=== PATIENT | male | born 1955 | race Caucasian/White ===

== ENCOUNTER 2017-10-07 13:30 | Outpatient (RCR) | payer OTHER, SELFPAY ==
[2017-09-16 13:50] VITALS: BP 136/98; PULSE 87; RESP 16; TEMP 36.9; BMI 43.5
--- NOTE | 2017-09-16 19:00 | HP.PCM_ITS ---
(1) Chronic L sided weakness Status: Chronic Current Visit: Yes (2) History of DVT (deep vein thrombosis) Status: Chronic Current Visit: Yes Code(s): Z86.718 - Personal history of other venous thrombosis and embolism (3) Lymphedema Status: Chronic Current Visit: Yes Code(s): I89.0 - Lymphedema, not elsewhere classified (4) Chronic pain disorder Status: Chronic Current Visit: Yes Code(s): G89.4 - Chronic pain syndrome (5) Venous ulcer of left lower extremity with varicose veins Status: Chronic Current Visit: Yes Code(s): I83.029 - Varicose veins of left lower extremity with ulcer of unspecified site History of Present Illness Date of Service: 09/16/17 Chief Complaint: Nonhealing venous ulcer of left lower extremity History of Wound: Mauricio is here today for complaint of nonhealing wound of his left lower extremity which started about a month ago after his skin blistered and the blisters broke. He has been washing his legs and applying silver ointment and gauze daily. He also developed skin tears from tape in the last week on his left york and left superior calf. He saw his primary care physician and they did wound cultures and dressed his wounds with silvercell and referred him to the wound center for continued treatment. He has chronic edema of his lower extremities the left greater than the right status post stroke. He has compression stockings and lymphedema pumps. He does not wear the compression stockings all of the time due to causing pain in his left foot. He has not been as compliant with his lymphedema pumps due to pain/pressure that he gets in his left side during treatments but he has done it several times this week since seeing his PCP but has done the treatments lying in bed which has seemed to help a little. His last vascular studies were in 2014 when he was seen here for treatment of similar ulcers. His current ulcer is in the same spot as one of his previous ulcers. Past Medical History Past Medical History: Chronic Problems History of pulmonary embolism (Chronic) Chronic L sided weakness (Chronic) History of DVT (deep vein thrombosis) (Chronic) BPH (benign prostatic hypertrophy) (Chronic) Hyperlipidemia (Chronic) Seizure disorder (Chronic) History of CVA (cerebrovascular accident) (Chronic) Hypertension (Chronic) Lymphedema (Chronic) Venous ulcers of both lower extremities (Chronic) Chronic pain disorder (Chronic) Venous ulcer of both lower extremities with varicose veins (Chronic) Venous ulcer of left lower extremity with varicose veins (Chronic) Central nervous system deficit (Chronic) Surgical History: no surgical history, - - IVC Filter Allergies/Adverse Reactions: Allergies ciprofloxacin [From Cipro] Adverse Reaction (Verified 03/20/17 13:05) PAIN IN FEET ciprofloxacin HCl [From Cipro] Adverse Reaction (Verified 03/20/17 13:05) PAIN IN FEET citalopram Adverse Reaction (Verified 03/20/17 13:05) SUICIDAL THOUGHTS SUICIDAL THOUGHTS gabapentin [From Neurontin] Adverse Reaction (Verified 03/20/17 13:05) EFFECTED VISION AND HEARING FOGGY, IT EFFECTED MY VISION AND MY HEARING hydrochlorothiazide Adverse Reaction (Verified 03/20/17 13:05) DIZZINESS dizziness STATINS Adverse Reaction (Uncoded 03/20/17 13:05) SEVERE MUSCLE PAINS SEVERE MUSCLE PAINS Home Medications: Ambulatory Orders Medication Instructions Recorded Phenytoin Na [Dilantin] 100 mg PO DAILY 08/29/14 Lisinopril [Zestril] 10 mg PO DAILY 08/27/15 [place]-3 Fatty Acids [Fish Oil] 1,000 mg PO BID 08/27/15 Ubidecarenone [Co Q-10] 100 mg PO DAILY 08/27/15 Warfarin [Coumadin ([facility])] 4 mg PO MOWEFR 08/27/15 Warfarin [Coumadin ([facility])] 3 mg PO TUTHSA 03/20/17 Ergocalciferol [Vitamin D] 5,000 unit PO DAILY 09/16/17 Turmeric Root Extract [Turmeric] 100 mg PO DAILY 09/16/17 - Family History Maternal Heart Disease, Hypertension Paternal Cancer - Father with colon CA. Lives: Alone Smoking Status: Never smoker Tobacco Use: Non-smoker Alcohol: None Drugs: None Review of Systems Constitutional: Denies: Chills, Fever, Weight Change Eyes: Denies: Pain, Vision Change HEENT: Denies: Difficulty Hearing, Difficulty Swallowing, Sinus Congestion Cardiovascular: Denies: Chest Pain, Palpitations Respiratory: Denies: Cough, Shortness of Breath Gastrointestinal: Denies: Diarrhea, Nausea, Vomiting Genitourinary: Denies: Dysuria, Hematuria Musculoskeletal: Reports: Foot Pain, Leg Pain Skin: Reports: Wounds Neurological: Reports: Numbness, Tingling Endocrine: Denies: Heat/ Cold Intolerance, Polydipsia, Polyuria Hematologic/ Lymphatic: Reports: Easy Bruising, Easy Bleeding, Hx of blood clot - Physical Exam Vital Signs Temp Pulse Resp BP 98.4 F 87 16 136/98 H 09/16/17 13:50 09/16/17 13:50 09/16/17 13:50 09/16/17 13:50 General: Alert, Oriented x3, Cooperative, No apparent distress HEENT: Atraumatic, Normocephalic Oral: Moist Mucosa Lungs: Clear to auscultation Cardiovascular: Regular rate, Regular Rhythm Abdomen: Soft, Non Tender, Obese Extremities: Edema Skin: Ulcer/ Wound Wound Measurements and Assessment WC - Nurse 1 - General Ulcer Measurement Start: 09/16/17 13:45 Freq: Status: Active Protocol: Activity Type Activity Date Activity User E-Sign Co-Sign Detail Recorded Client Recorded Date Recorded By Document 09/16/17 13:50 BM [id number] 09/16/17 14:28 BM 09/16/17 13:50 Wound Center Nurse 1 [Ulcer Assessment Protocol: .WD.LOC] #7- LT INFERIOR CALF -Combined with other wound No -Current Size (cm) - Length 2.2 -Current Size (cm) - Width 2.1 -Current Size (cm) - Depth 0.2 -Total Square Cm 4.62 -Date of Last Picture (Recall this 09/16/17 field) -Photo Taken Yes -Epithelialization None Present -Tunneling No -Undermining/Tunneling No -Exudate Amt Medium (34-66%) -Exudate Type Serosanguineous -Wound Margin Distinct, Outline Attached -Granulation Amt Small (1-33%) -Granulation Quality Red -Slough/Fibrin Yes -Necrosis Amt Large (67-100%) -Necrotic Tissue Type Eschar -Structure Exposed N/A -Texture (Marie-wound Skin Appearance) Scarring -Moisture (Marie-wound Skin Appearance Dry/Scaly ) -Color (Marie-wound Skin Appearance) Hemosiderin Staining -Temperature (Marie-wound Skin No Abnormality Appearance) (Pt Warm) -Tenderness on Palpation (Marie-wound No Skin Appearance) -Ulcer Cleansing Rinsed/ Irrigated with Saline -Foul Odor after Cleansing No -Anesthetic Used 4% Lidocaine Solution #6- LT SUPERIOR CALF CLUSTER -Combined with other wound No -Current Size (cm) - Length 2.9 -Current Size (cm) - Width 4.2 -Current Size (cm) - Depth 0.1 -Total Square Cm 12.18 -Date of Last Picture (Recall this 09/16/17 field) -Photo Taken Yes -Epithelialization None Present -Tunneling No -Undermining/Tunneling No -Exudate Amt None Present (0 %) -Wound Margin Distinct, Outline Attached -Granulation Amt Small (1-33%) -Granulation Quality Red -Necrosis Amt Large (67-100%) -Necrotic Tissue Type Eschar -Structure Exposed N/A -Texture (Marie-wound Skin Appearance) Scarring -Moisture (Marie-wound Skin Appearance Dry/Scaly ) -Color (Marie-wound Skin Appearance) Hemosiderin Staining -Temperature (Marie-wound Skin No Abnormality Appearance) (Pt Warm) -Tenderness on Palpation (Marie-wound No Skin Appearance) -Ulcer Cleansing Rinsed/ Irrigated with Saline -Foul Odor after Cleansing No -Anesthetic Used 4% Lidocaine Solution #5- LT MEDIAL [place] -Combined with other wound No -Current Size (cm) - Length 6.5 -Current Size (cm) - Width 2.5 -Current Size (cm) - Depth 0.1 -Total Square Cm 16.25 -Date of Last Picture (Recall this 09/16/17 field) -Photo Taken Yes -Epithelialization None Present -Tunneling No -Undermining/Tunneling No -Exudate Amt Medium (34-66%) -Exudate Type Serosanguineous -Wound Margin Distinct, Outline Attached -Granulation Amt Large (67-100%) -Granulation Quality Red -Slough/Fibrin Yes -Necrosis Amt Small (1-33%) -Necrotic Tissue Type Adherent Slough -Structure Exposed None/Limited to Skin Breakdown -Texture (Marie-wound Skin Appearance) Scarring -Moisture (Marie-wound Skin Appearance Dry/Scaly ) -Color (Marie-wound Skin Appearance) Hemosiderin Staining -Temperature (Marie-wound Skin No Abnormality Appearance) (Pt Warm) -Tenderness on Palpation (Marie-wound No Skin Appearance) -Ulcer Cleansing Rinsed/ Irrigated with Saline -Foul Odor after Cleansing No -Anesthetic Used 4% Lidocaine Solution [Edema Assessment] -Lower Limb Edema Present Yes -Right Calf (cm) 46.8 -Right Ankle (cm) 33.1 -Left Calf (cm) 46.1 -Left Ankle (cm) 28.4 WC - Nurse 2 - General Ulcer CM Notes Start: 09/16/17 13:45 Freq: Status: Active Protocol: Activity Type Activity Date Activity User E-Sign Co-Sign Detail Recorded Client Recorded Date Recorded By Document 09/16/17 15:15 TM [id number] 09/16/17 15:30 TM 09/16/17 15:15 Wound Center Nurse 2 [Procedure/Treatment] #7- LT INFERIOR CALF -Time 15:22 -Correct Patient Yes -Correct Side, Site, Position Yes -Correct Procedure Yes -Procedure Performed Yes -Type of Procedure Debridement -Clinical Debridement Subcutaneous -Post Debridement Size (cm) - Length 2.2 -Post Debridement Size (cm) - Width 2.1 -Post Debridement Size (cm) - Depth 0.2 -Total Square Cm 4.62 -Wound/Ulcer Outcome Not Healed -Ulcer Cleansing Rinsed/ Irrigated with Saline -Foul Odor after Cleansing No -Bioengineered Tissue No -Cetacaine [place] No -Topical Lidocaine (%) 5 -Bleeding Controlled with Pressure -Treatment Response Procedure Tolerated Well #6- LT SUPERIOR CALF CLUSTER -Time 15:23 -Correct Patient Yes -Correct Side, Site, Position Yes -Correct Procedure Yes -Procedure Performed Yes -Type of Procedure Debridement -Clinical Debridement Subcutaneous -Post Debridement Size (cm) - Length 1.7 -Post Debridement Size (cm) - Width 2.5 -Post Debridement Size (cm) - Depth 0.1 -Total Square Cm 4.25 -Wound/Ulcer Outcome Not Healed -Ulcer Cleansing Rinsed/ Irrigated with Saline -Foul Odor after Cleansing No -Bioengineered Tissue No -Cetacaine [place] No -Topical Lidocaine (%) 5 -Bleeding Controlled with NA -Treatment Response Procedure Tolerated Well #5- LT MEDIAL [place] -Time 15:23 -Correct Patient Yes -Correct Side, Site, Position Yes -Correct Procedure Yes -Procedure Performed Yes -Type of Procedure Debridement -Clinical Debridement Subcutaneous -Post Debridement Size (cm) - Length 6.3 -Post Debridement Size (cm) - Width 4.3 -Post Debridement Size (cm) - Depth 0.1 -Total Square Cm 27.09 -Wound/Ulcer Outcome Not Healed -Ulcer Cleansing Rinsed/ Irrigated with Saline -Foul Odor after Cleansing No -Bioengineered Tissue No -Cetacaine [place] No -Topical Lidocaine (%) 5 -Bleeding Controlled with Pressure -Treatment Response Procedure Tolerated Well [See Physician Procedure note for Specifics] Pain Scale: 0-10 Numeric [Pain] -Is Patient Pain Free? Yes Neurological: - - weakness left upper and lower extremity Psych/Mental Status: Normal Affect, Appropriate Debridement Note Post-Debridement Measurements/Treatment WC - Nurse 2 - General Ulcer CM Notes Start: 09/16/17 13:45 Freq: Status: Active Protocol: Activity Type Activity Date Activity User E-Sign Co-Sign Detail Recorded Client Recorded Date Recorded By Document 09/16/17 15:15 TM [id number] 09/16/17 15:30 TM 09/16/17 15:15 Wound Center Nurse 2 #7- LT INFERIOR CALF -Time 15:22 -Correct Patient Yes -Correct Side, Site, Position Yes -Correct Procedure Yes -Procedure Performed Yes -Type of Procedure Debridement -Clinical Debridement Subcutaneous -Post Debridement Size (cm) - Length 2.2 -Post Debridement Size (cm) - Width 2.1 -Post Debridement Size (cm) - Depth 0.2 -Total Square Cm 4.62 -Wound/Ulcer Outcome Not Healed -Ulcer Cleansing Rinsed/ Irrigated with Saline -Foul Odor after Cleansing No -Bioengineered Tissue No -Cetacaine [place] No -Topical Lidocaine (%) 5 -Bleeding Controlled with Pressure -Treatment Response Procedure Tolerated Well #6- LT SUPERIOR CALF CLUSTER -Time 15:23 -Correct Patient Yes -Correct Side, Site, Position Yes -Correct Procedure Yes -Procedure Performed Yes -Type of Procedure Debridement -Clinical Debridement Subcutaneous -Post Debridement Size (cm) - Length 1.7 -Post Debridement Size (cm) - Width 2.5 -Post Debridement Size (cm) - Depth 0.1 -Total Square Cm 4.25 -Wound/Ulcer Outcome Not Healed -Ulcer Cleansing Rinsed/ Irrigated with Saline -Foul Odor after Cleansing No -Bioengineered Tissue No -Cetacaine [place] No -Topical Lidocaine (%) 5 -Bleeding Controlled with NA -Treatment Response Procedure Tolerated Well #5- LT MEDIAL [place] -Time 15:23 -Correct Patient Yes -Correct Side, Site, Position Yes -Correct Procedure Yes -Procedure Performed Yes -Type of Procedure Debridement -Clinical Debridement Subcutaneous -Post Debridement Size (cm) - Length 6.3 -Post Debridement Size (cm) - Width 4.3 -Post Debridement Size (cm) - Depth 0.1 -Total Square Cm 27.09 -Wound/Ulcer Outcome Not Healed -Ulcer Cleansing Rinsed/ Irrigated with Saline -Foul Odor after Cleansing No -Bioengineered Tissue No -Cetacaine [place] No -Topical Lidocaine (%) 5 -Bleeding Controlled with Pressure -Treatment Response Procedure Tolerated Well Pain Scale: 0-10 Numeric Is Patient Pain Free? Yes Wound debrided: left inferior calf Laterality: Left Type of Debridement: Excisional debridement Anesthesia Used: 5% Lidocaine Gel Depth: Down to and including healthy tissue, in the subcutaneous layer Percentage of wound debrided: 100 Instrument Used: 5mm curette Tissue Removed: yellow slough and devitalized tissue Severity: Fat Layer Exposed Amount of bleeding with debridement: Mild Bleeding Controlled with: Compression and gauze Patient tolerated procedure well - Additional Wound Wound debrided: left superior calf Laterality: Left Type of Debridement: Excisional debridement Anesthesia Used: 4% Lidocaine Solution Depth: Down to and including healthy tissue, in the subcutaneous layer Percentage of wound debrided: 100 Instrument Used: 5mm curette Tissue Removed: yellow slough and devitalized tissue Severity: Fat Layer Exposed Amount of bleeding with debridement: Mild Bleeding Controlled with: Compression and gauze Patient tolerated procedure: Patient tolerated procedure well - Additional Wound Wound debrided: left medial [place] Laterality: Left Type of Debridement: Excisional debridement Anesthesia Used: 4% Lidocaine Solution Depth: Down to and including healthy tissue, in the subcutaneous layer Percentage of wound debrided: 100 Instrument Used: 5mm curette Tissue Removed: yellow slough and devitalized tissue Severity: Fat Layer Exposed Amount of bleeding with debridement: Mild Bleeding Controlled with: Compression and gauze Patient tolerated procedure: Patient tolerated procedure well Assessment/Plan Active Problems Chronic L sided weakness (Chronic) History of DVT (deep vein thrombosis) (Chronic) Lymphedema (Chronic) Chronic pain disorder (Chronic) Venous ulcer of left lower extremity with varicose veins (Chronic) Assessment: Venous ulcers of lower extremities bilaterally. Lymphedema Plan: Mauricio's wounds/ulcers were evaluated and debrided today. His wound cultures showed enterococcus faecalis 3+ which was sensitive to all antibiotics that were tested against. Anaerobic cultures are still pending. Will have him use Aquacel Ag to the left inferior calf wound/ulcer and have him use adaptic to the york and superior wound/ulcer. Will treat his edema with tubigrips and have him continue to use his lymphedema pumps. Encourage increased protein intake for improved healing. Follow-up in 1 week.
[2017-09-23 13:14] VITALS: BP 136/81; PULSE 79; RESP 20; TEMP 36.4; BMI 43.5
--- NOTE | 2017-09-23 20:25 | PN.PCM_ITS ---
(1) Chronic L sided weakness Status: Chronic Current Visit: Yes (2) History of DVT (deep vein thrombosis) Status: Chronic Current Visit: Yes Code(s): Z86.718 - Personal history of other venous thrombosis and embolism (3) Lymphedema Status: Chronic Current Visit: Yes Code(s): I89.0 - Lymphedema, not elsewhere classified (4) Chronic pain disorder Status: Chronic Current Visit: Yes Code(s): G89.4 - Chronic pain syndrome (5) Venous ulcer of left lower extremity with varicose veins Status: Chronic Current Visit: Yes Code(s): I83.029 - Varicose veins of left lower extremity with ulcer of unspecified site Type of Wound Date of Service: 09/23/17 Chief Complaint: Nonhealing venous ulcer of left lower extremity History of Wound: Mauricio is here today for complaint of nonhealing wound of his left lower extremity which started about a month ago after his skin blistered and the blisters broke. He has been washing his legs and applying silver ointment and gauze daily. He also developed skin tears from tape in the last week on his left [place] and left superior calf. He saw his primary care physician and they did wound cultures and dressed his wounds with silvercell and referred him to the wound center for continued treatment. He has chronic edema of his lower extremities the left greater than the right status post stroke. He has compression stockings and lymphedema pumps. He does not wear the compression stockings all of the time due to causing pain in his left foot. He has not been as compliant with his lymphedema pumps due to pain/pressure that he gets in his left side during treatments but he has done it several times this week since seeing his PCP but has done the treatments lying in bed which has seemed to help a little. His last vascular studies were in 2014 when he was seen here for treatment of similar ulcers. His current ulcer is in the same spot as one of his previous ulcers. Progress of Wound: Mauricio is here today for follow up of venous ulcer and nonhealing wounds of his left lower leg. The skin tears have improved and his venous ulcer is mildly improved. He is tolerating antibiotic treatment well. He has been compliant with compression. Denies fever or chills or increased drainage or increased pain. - Physical Exam Vital Signs Temp Pulse Resp BP 97.5 F L 79 20 H 136/81 H 09/23/17 13:14 09/23/17 13:14 09/23/17 13:14 09/23/17 13:14 General: Alert, Oriented x3, Cooperative, No apparent distress HEENT: Atraumatic, Normocephalic Oral: Moist Mucosa Abdomen: Obese Extremities: Edema Skin: Ulcer/ Wound Wound Measurements and Assessment WC - Nurse 1 - General Ulcer Measurement Start: 09/16/17 13:45 Freq: Status: Active Protocol: Activity Type Activity Date Activity User E-Sign Co-Sign Detail Recorded Client Recorded Date Recorded By Document 09/23/17 13:14 [id number] 09/23/17 13:35 [email or web address] 09/23/17 13:14 Wound Center Nurse 1 [Ulcer Assessment Protocol: DEBBIE.WD.LOC] #7- LT INFERIOR CALF -Combined with other wound No -Current Size (cm) - Length 1.7 -Current Size (cm) - Width 2.0 -Current Size (cm) - Depth 0.1 -Total Square Cm 3.40 -Date of Last Picture (Recall this 09/16/17 field) -Photo Taken No -Epithelialization None Present -Tunneling No -Undermining/Tunneling No -Circular Undermining No -Classification - Thickness Full Thickness without Exposed Support Structure -Change in Wound Grade/Stage No Query Text:If change please identify the Stage/Grade in the comment (ie. S2 G3) -Exudate Amt Small (1-33%) -Exudate Type Serous -Wound Margin Distinct, Outline Attached -Granulation Amt Small (1-33%) -Granulation Quality Pale -Slough/Fibrin Yes -Necrosis Amt None Present (0 %) -Necrotic Tissue Type Adherent Slough -Structure Exposed None/Limited to Skin Breakdown -Texture (Marie-wound Skin Appearance) No Abnormality -Moisture (Marie-wound Skin Appearance No Abnormality ) -Color (Marie-wound Skin Appearance) No Abnormality Hemosiderin Staining -Temperature (Marie-wound Skin No Abnormality Appearance) (Pt Warm) -Tenderness on Palpation (Marie-wound No Skin Appearance) -Ulcer Cleansing Rinsed/ Irrigated with Saline -Foul Odor after Cleansing No -Anesthetic Used 4% Lidocaine Solution #6- LT SUPERIOR CALF CLUSTER -Combined with other wound No -Current Size (cm) - Length 0 -Current Size (cm) - Width 0 -Current Size (cm) - Depth 0 -Total Square Cm 0 -Date of Last Picture (Recall this 09/23/17 field) -Photo Taken Yes -Epithelialization Medium 34-66% -Tunneling No -Undermining/Tunneling No -Circular Undermining No -Classification - Thickness Full Thickness without Exposed Support Structure -Change in Wound Grade/Stage No Query Text:If change please identify the Stage/Grade in the comment (ie. S2 G3) -Exudate Amt None Present (0 %) -Wound Margin Distinct, Outline Attached -Granulation Amt Large (67-100%) -Granulation Quality N/A -Slough/Fibrin No -Necrosis Amt None Present (0 %) -Necrotic Tissue Type Eschar -Structure Exposed None/Limited to Skin Breakdown -Texture (Marie-wound Skin Appearance) No Abnormality -Moisture (Marie-wound Skin Appearance No Abnormality ) -Color (Marie-wound Skin Appearance) No Abnormality -Temperature (Marie-wound Skin No Abnormality Appearance) (Pt Warm) -Tenderness on Palpation (Marie-wound No Skin Appearance) -Ulcer Cleansing Rinsed/ Irrigated with Saline -Foul Odor after Cleansing No #5- LT MEDIAL [place] -Combined with other wound No -Current Size (cm) - Length 6.8 -Current Size (cm) - Width 1.3 -Current Size (cm) - Depth 0.1 -Total Square Cm 8.84 -Date of Last Picture (Recall this 09/16/17 field) -Photo Taken No -Epithelialization Small 1-33% -Tunneling No -Undermining/Tunneling No -Circular Undermining No -Classification - Thickness Full Thickness without Exposed Support Structure -Change in Wound Grade/Stage No Query Text:If change please identify the Stage/Grade in the comment (ie. S2 G3) -Exudate Amt Small (1-33%) -Exudate Type Serosanguineous -Wound Margin Distinct, Outline Attached -Granulation Amt Medium (34-66%) -Granulation Quality Red -Slough/Fibrin Yes -Necrosis Amt None Present (0 %) -Necrotic Tissue Type Adherent Slough -Structure Exposed None/Limited to Skin Breakdown -Texture (Marie-wound Skin Appearance) No Abnormality -Moisture (Marie-wound Skin Appearance No Abnormality ) -Color (Marie-wound Skin Appearance) No Abnormality Hemosiderin Staining -Temperature (Marie-wound Skin No Abnormality Appearance) (Pt Warm) -Tenderness on Palpation (Marie-wound No Skin Appearance) -Ulcer Cleansing Rinsed/ Irrigated with Saline -Foul Odor after Cleansing No -Anesthetic Used 4% Lidocaine Solution [Edema Assessment] -Lower Limb Edema Present Yes -Left Calf (cm) 48.0 -Left Ankle (cm) 32.0 WC - Nurse 2 - General Ulcer CM Notes Start: 09/16/17 13:45 Freq: Status: Active Protocol: Activity Type Activity Date Activity User E-Sign Co-Sign Detail Recorded Client Recorded Date Recorded By Document 09/23/17 14:11 [id number] 09/23/17 14:25 09/23/17 14:11 Wound Center Nurse 2 [Procedure/Treatment] #7- LT INFERIOR CALF -Time 14:20 -Correct Patient Yes -Correct Side, Site, Position Yes -Correct Procedure Yes -Procedure Performed Yes -Type of Procedure Debridement -Clinical Debridement Subcutaneous -Post Debridement Size (cm) - Length 1.9 -Post Debridement Size (cm) - Width 2.0 -Post Debridement Size (cm) - Depth 0.1 -Total Square Cm 3.80 -Wound/Ulcer Outcome Not Healed -Ulcer Cleansing Rinsed/ Irrigated with Saline -Foul Odor after Cleansing No -Bioengineered Tissue No -Cetacaine [place] No -Topical Lidocaine (%) 5 -Bleeding Controlled with Pressure -Treatment Response Procedure Tolerated Well #6- LT SUPERIOR CALF CLUSTER -Time 14:20 -Correct Patient Yes -Correct Side, Site, Position Yes -Correct Procedure Yes -Procedure Performed Yes -Post Debridement Size (cm) - Length 0 -Post Debridement Size (cm) - Width 0 -Post Debridement Size (cm) - Depth 0 -Total Square Cm 0 -Wound/Ulcer Outcome Healed- Epithelialized -Ulcer Cleansing Rinsed/ Irrigated with Saline -Foul Odor after Cleansing No -Bioengineered Tissue No -Cetacaine [place] No -Topical Lidocaine (%) 5 -Bleeding Controlled with Pressure -Treatment Response Procedure Tolerated Well #5- LT MEDIAL [place] -Time 14:20 -Correct Patient Yes -Correct Side, Site, Position Yes -Correct Procedure Yes -Procedure Performed Yes -Type of Procedure Debridement -Clinical Debridement Subcutaneous -Post Debridement Size (cm) - Length 5.5 -Post Debridement Size (cm) - Width 2.5 -Post Debridement Size (cm) - Depth 0.1 -Total Square Cm 13.75 -Wound/Ulcer Outcome Not Healed -Ulcer Cleansing Rinsed/ Irrigated with Saline -Foul Odor after Cleansing No -Bioengineered Tissue No -Cetacaine [place] No -Topical Lidocaine (%) 5 -Bleeding Controlled with Pressure -Treatment Response Procedure Tolerated Well [See Physician Procedure note for Specifics] Pain Scale: 0-10 Numeric [Pain] -Is Patient Pain Free? Yes Psych/Mental Status: Normal Affect, Appropriate Debridement Note Post-Debridement Measurements/Treatment WC - Nurse 2 - General Ulcer CM Notes Start: 09/16/17 13:45 Freq: Status: Active Protocol: Activity Type Activity Date Activity User E-Sign Co-Sign Detail Recorded Client Recorded Date Recorded By Document 09/16/17 15:15 TM [id number] 09/16/17 15:30 TM Document 09/23/17 14:11 TM [id number] 09/23/17 14:25 TM 09/16/17 09/23/17 15:15 14:11 Wound Center Nurse 2 #7- LT INFERIOR CALF -Time 15:22 14:20 -Correct Patient Yes Yes -Correct Side, Site, Position Yes Yes -Correct Procedure Yes Yes -Procedure Performed Yes Yes -Type of Procedure Debridement Debridement -Clinical Debridement Subcutaneous Subcutaneous -Post Debridement Size (cm) - Length 2.2 1.9 -Post Debridement Size (cm) - Width 2.1 2.0 -Post Debridement Size (cm) - Depth 0.2 0.1 -Total Square Cm 4.62 3.80 -Wound/Ulcer Outcome Not Healed Not Healed -Ulcer Cleansing Rinsed/ Rinsed/ Irrigated with Irrigated with Saline Saline -Foul Odor after Cleansing No No -Bioengineered Tissue No No -Cetacaine [place] No No -Topical Lidocaine (%) 5 5 -Bleeding Controlled with Pressure Pressure -Treatment Response Procedure Procedure Tolerated Well Tolerated Well #6- LT SUPERIOR CALF CLUSTER -Time 15:23 14:20 -Correct Patient Yes Yes -Correct Side, Site, Position Yes Yes -Correct Procedure Yes Yes -Procedure Performed Yes Yes -Type of Procedure Debridement -Clinical Debridement Subcutaneous -Post Debridement Size (cm) - Length 1.7 0 -Post Debridement Size (cm) - Width 2.5 0 -Post Debridement Size (cm) - Depth 0.1 0 -Total Square Cm 4.25 0 -Wound/Ulcer Outcome Not Healed Healed- Epithelialized -Ulcer Cleansing Rinsed/ Rinsed/ Irrigated with Irrigated with Saline Saline -Foul Odor after Cleansing No No -Bioengineered Tissue No No -Cetacaine [place] No No -Topical Lidocaine (%) 5 5 -Bleeding Controlled with NA Pressure -Treatment Response Procedure Procedure Tolerated Well Tolerated Well #5- LT MEDIAL [place] -Time 15:23 14:20 -Correct Patient Yes Yes -Correct Side, Site, Position Yes Yes -Correct Procedure Yes Yes -Procedure Performed Yes Yes -Type of Procedure Debridement Debridement -Clinical Debridement Subcutaneous Subcutaneous -Post Debridement Size (cm) - Length 6.3 5.5 -Post Debridement Size (cm) - Width 4.3 2.5 -Post Debridement Size (cm) - Depth 0.1 0.1 -Total Square Cm 27.09 13.75 -Wound/Ulcer Outcome Not Healed Not Healed -Ulcer Cleansing Rinsed/ Rinsed/ Irrigated with Irrigated with Saline Saline -Foul Odor after Cleansing No No -Bioengineered Tissue No No -Cetacaine [place] No No -Topical Lidocaine (%) 5 5 -Bleeding Controlled with Pressure Pressure -Treatment Response Procedure Procedure Tolerated Well Tolerated Well Pain Scale: 0-10 Numeric Is Patient Pain Free? Yes Yes Wound debrided: left inferior calf Laterality: Left Type of Debridement: Excisional debridement Anesthesia Used: 5% Lidocaine Gel Depth: Down to and including healthy tissue, in the subcutaneous layer Percentage of wound debrided: 100 Instrument Used: 5mm curette Tissue Removed: yellow slough, devitalized tissue Severity: Fat Layer Exposed Amount of bleeding with debridement: Mild Bleeding Controlled with: Compression and gauze Patient tolerated procedure well - Additional Wound Wound debrided: left superior calf cluster Laterality: Left Operative Diagnosis: No debridement was performed - wound is healed. - Additional Wound Wound debrided: left medial [place] Laterality: Left Type of Debridement: Excisional debridement Anesthesia Used: 5% Lidocaine Gel Depth: Down to and including healthy tissue, in the subcutaneous layer Percentage of wound debrided: 100 Instrument Used: 5mm curette Tissue Removed: yellow slough, devitalized tissue Severity: Fat Layer Exposed Amount of bleeding with debridement: Mild Bleeding Controlled with: Compression and gauze Patient tolerated procedure: Patient tolerated procedure well Assessment/Plan Active Problems Chronic L sided weakness (Chronic) History of DVT (deep vein thrombosis) (Chronic) Lymphedema (Chronic) Chronic pain disorder (Chronic) Venous ulcer of left lower extremity with varicose veins (Chronic) Assessment: Venous ulcers of lower extremities bilaterally. Lymphedema Plan: Mauricio's wounds/ulcers were evaluated and debrided today. Will have him use Aquacel Ag to the left inferior calf wound/ulcer and have him use Aquacel Ag to the [place] wound/ulcer. Left superior calf wound/ulcer is healed. Will treat his edema with tubigrips and have him continue to use his lymphedema pumps. Encourage increased protein intake for improved healing. Follow-up in 2 weeks.
[2017-10-07 13:41] VITALS: BP 147/79; PULSE 88; RESP 16; TEMP 35.5; BMI 43.5
--- NOTE | 2017-10-07 20:22 | PN.PCM_ITS ---
(1) Chronic L sided weakness Status: Chronic Current Visit: Yes (2) History of DVT (deep vein thrombosis) Status: Chronic Current Visit: Yes Code(s): Z86.718 - Personal history of other venous thrombosis and embolism (3) Lymphedema Status: Chronic Current Visit: Yes Code(s): I89.0 - Lymphedema, not elsewhere classified (4) Chronic pain disorder Status: Chronic Current Visit: Yes Code(s): G89.4 - Chronic pain syndrome (5) Venous ulcer of left lower extremity with varicose veins Status: Chronic Current Visit: Yes Code(s): I83.029 - Varicose veins of left lower extremity with ulcer of unspecified site Type of Wound Date of Service: 10/07/17 Chief Complaint: Nonhealing venous ulcer of left lower extremity History of Wound: Mauricio is here today for complaint of nonhealing wound of his left lower extremity which started about a month ago after his skin blistered and the blisters broke. He has been washing his legs and applying silver ointment and gauze daily. He also developed skin tears from tape in the last week on his left york and left superior calf. He saw his primary care physician and they did wound cultures and dressed his wounds with silvercell and referred him to the wound center for continued treatment. He has chronic edema of his lower extremities the left greater than the right status post stroke. He has compression stockings and lymphedema pumps. He does not wear the compression stockings all of the time due to causing pain in his left foot. He has not been as compliant with his lymphedema pumps due to pain/pressure that he gets in his left side during treatments but he has done it several times this week since seeing his PCP but has done the treatments lying in bed which has seemed to help a little. His last vascular studies were in 2014 when he was seen here for treatment of similar ulcers. His current ulcer is in the same spot as one of his previous ulcers. Progress of Wound: Mauricio is here today for follow up of venous ulcer and nonhealing wounds of his left lower leg. The skin tears have improved and his venous ulcer is mildly improved. He completed antibiotics. He has been compliant with compression. Denies fever or chills or increased drainage or increased pain. - Physical Exam Vital Signs Temp Pulse Resp BP 96 F L 88 16 147/79 H 10/07/17 13:41 10/07/17 13:41 10/07/17 13:41 10/07/17 13:41 General: Alert, Oriented x3, Cooperative, No apparent distress HEENT: Atraumatic, Normocephalic Oral: Moist Mucosa Abdomen: Obese Extremities: Edema Skin: Ulcer/ Wound Wound Measurements and Assessment - Nurse 1 - General Ulcer Measurement Start: 09/16/17 13:45 Freq: Status: Active Protocol: Activity Type Activity Date Activity User E-Sign Co-Sign Detail Recorded Client Recorded Date Recorded By Document 10/07/17 13:41 [facility] [id number] 10/07/17 13:54 [facility] 10/07/17 13:41 Wound Center Nurse 1 [Ulcer Assessment Protocol: DEBBIE.WD.LOC] #7- LT INFERIOR CALF -Combined with other wound No -Current Size (cm) - Length 1.6 -Current Size (cm) - Width 2.4 -Current Size (cm) - Depth 0.1 -Total Square Cm 3.84 -Photo Taken No -Epithelialization Small 1-33% -Tunneling No -Undermining/Tunneling No -Exudate Amt Small (1-33%) -Exudate Type Serosanguineous -Granulation Amt Small (1-33%) -Granulation Quality Red -Slough/Fibrin Yes -Necrosis Amt Large (67-100%) -Necrotic Tissue Type Adherent Slough -Structure Exposed None/Limited to Skin Breakdown -Texture (Marie-wound Skin Appearance) Scarring -Moisture (Marie-wound Skin Appearance Dry/Scaly ) -Color (Marie-wound Skin Appearance) Hemosiderin Staining -Temperature (Marie-wound Skin No Abnormality Appearance) (Pt Warm) -Tenderness on Palpation (Marie-wound No Skin Appearance) -Ulcer Cleansing Rinsed/ Irrigated with Saline -Foul Odor after Cleansing No -Anesthetic Used 5% Lidocaine Gel #5- LT MEDIAL [place] -Combined with other wound No -Current Size (cm) - Length 4.9 -Current Size (cm) - Width 0.6 -Current Size (cm) - Depth 0.1 -Total Square Cm 2.94 -Photo Taken No -Epithelialization None Present -Tunneling No -Undermining/Tunneling No -Exudate Amt Small (1-33%) -Exudate Type Serosanguineous -Wound Margin Distinct, Outline Attached -Granulation Amt Medium (34-66%) -Granulation Quality Red -Slough/Fibrin Yes -Necrosis Amt Medium (34-66%) -Necrotic Tissue Type Adherent Slough -Structure Exposed None/Limited to Skin Breakdown -Texture (Marie-wound Skin Appearance) Scarring -Moisture (Marie-wound Skin Appearance Dry/Scaly ) -Color (Marie-wound Skin Appearance) Hemosiderin Staining -Temperature (Marie-wound Skin No Abnormality Appearance) (Pt Warm) -Tenderness on Palpation (Marie-wound No Skin Appearance) -Ulcer Cleansing Rinsed/ Irrigated with Saline -Foul Odor after Cleansing No -Anesthetic Used 5% Lidocaine Gel [Edema Assessment] -Lower Limb Edema Present Yes -Left Calf (cm) 46.4 -Left Ankle (cm) 32.5 WC - Nurse 2 - General Ulcer CM Notes Start: 09/16/17 13:45 Freq: Status: Active Protocol: Activity Type Activity Date Activity User E-Sign Co-Sign Detail Recorded Client Recorded Date Recorded By Document 10/07/17 14:51 [id number] 10/07/17 14:59 10/07/17 14:51 Wound Center Nurse 2 [Procedure/Treatment] #7- LT INFERIOR CALF -Time 14:56 -Correct Patient Yes -Correct Side, Site, Position Yes -Correct Procedure Yes -Procedure Performed Yes -Type of Procedure Debridement -Clinical Debridement Subcutaneous -Post Debridement Size (cm) - Length 2.0 -Post Debridement Size (cm) - Width 2.1 -Post Debridement Size (cm) - Depth 0.1 -Total Square Cm 4.20 -Wound/Ulcer Outcome Not Healed -Ulcer Cleansing Rinsed/ Irrigated with Saline -Foul Odor after Cleansing No -Bioengineered Tissue No -Cetacaine [place] No -Topical Lidocaine (%) 5 -Bleeding Controlled with Pressure -Treatment Response Procedure Tolerated Well #5- LT MEDIAL [place] -Time 14:57 -Correct Patient Yes -Correct Side, Site, Position Yes -Correct Procedure Yes -Procedure Performed Yes -Type of Procedure Debridement -Clinical Debridement Subcutaneous -Post Debridement Size (cm) - Length 4.2 -Post Debridement Size (cm) - Width 2.4 -Post Debridement Size (cm) - Depth 0.1 -Total Square Cm 10.08 -Wound/Ulcer Outcome Not Healed -Ulcer Cleansing Rinsed/ Irrigated with Saline -Foul Odor after Cleansing No -Bioengineered Tissue No -Cetacaine [place] No -Topical Lidocaine (%) 5 -Bleeding Controlled with Pressure -Treatment Response Procedure Tolerated Well [See Physician Procedure note for Specifics] Pain Scale: 0-10 Numeric [Pain] -Is Patient Pain Free? Yes Psych/Mental Status: Normal Affect, Appropriate Debridement Note Post-Debridement Measurements/Treatment WC - Nurse 2 - General Ulcer CM Notes Start: 09/16/17 13:45 Freq: Status: Active Protocol: Activity Type Activity Date Activity User E-Sign Co-Sign Detail Recorded Client Recorded Date Recorded By Document 09/16/17 15:15 TM [id number] 09/16/17 15:30 TM Document 09/23/17 14:11 TM [id number] 09/23/17 14:25 TM Document 10/07/17 14:51 TM [id number] 10/07/17 14:59 TM 09/16/17 09/23/17 10/07/17 15:15 14:11 14:51 Wound Center Nurse 2 #7- LT INFERIOR CALF -Time 15:22 14:20 14:56 -Correct Patient Yes Yes Yes -Correct Side, Site, Position Yes Yes Yes -Correct Procedure Yes Yes Yes -Procedure Performed Yes Yes Yes -Type of Procedure Debridement Debridement Debridement -Clinical Debridement Subcutaneous Subcutaneous Subcutaneous -Post Debridement Size (cm) - Length 2.2 1.9 2.0 -Post Debridement Size (cm) - Width 2.1 2.0 2.1 -Post Debridement Size (cm) - Depth 0.2 0.1 0.1 -Total Square Cm 4.62 3.80 4.20 -Wound/Ulcer Outcome Not Healed Not Healed Not Healed -Ulcer Cleansing Rinsed/ Rinsed/ Rinsed/ Irrigated with Irrigated with Irrigated with Saline Saline Saline -Foul Odor after Cleansing No No No -Bioengineered Tissue No No No -Cetacaine [place] No No No -Topical Lidocaine (%) 5 5 5 -Bleeding Controlled with Pressure Pressure Pressure -Treatment Response Procedure Procedure Procedure Tolerated Well Tolerated Well Tolerated Well #6- LT SUPERIOR CALF [place] -Time 15:23 14:20 -Correct Patient Yes Yes -Correct Side, Site, Position Yes Yes -Correct Procedure Yes Yes -Procedure Performed Yes Yes -Type of Procedure Debridement -Clinical Debridement Subcutaneous -Post Debridement Size (cm) - Length 1.7 0 -Post Debridement Size (cm) - Width 2.5 0 -Post Debridement Size (cm) - Depth 0.1 0 -Total Square Cm 4.25 0 -Wound/Ulcer Outcome Not Healed Healed- Epithelialized -Ulcer Cleansing Rinsed/ Rinsed/ Irrigated with Irrigated with Saline Saline -Foul Odor after Cleansing No No -Bioengineered Tissue No No -Cetacaine [place] No No -Topical Lidocaine (%) 5 5 -Bleeding Controlled with NA Pressure -Treatment Response Procedure Procedure Tolerated Well Tolerated Well #5- LT MEDIAL [place] -Time 15:23 14:20 14:57 -Correct Patient Yes Yes Yes -Correct Side, Site, Position Yes Yes Yes -Correct Procedure Yes Yes Yes -Procedure Performed Yes Yes Yes -Type of Procedure Debridement Debridement Debridement -Clinical Debridement Subcutaneous Subcutaneous Subcutaneous -Post Debridement Size (cm) - Length 6.3 5.5 4.2 -Post Debridement Size (cm) - Width 4.3 2.5 2.4 -Post Debridement Size (cm) - Depth 0.1 0.1 0.1 -Total Square Cm 27.09 13.75 10.08 -Wound/Ulcer Outcome Not Healed Not Healed Not Healed -Ulcer Cleansing Rinsed/ Rinsed/ Rinsed/ Irrigated with Irrigated with Irrigated with Saline Saline Saline -Foul Odor after Cleansing No No No -Bioengineered Tissue No No No -Cetacaine [place] No No No -Topical Lidocaine (%) 5 5 5 -Bleeding Controlled with Pressure Pressure Pressure -Treatment Response Procedure Procedure Procedure Tolerated Well Tolerated Well Tolerated Well Pain Scale: 0-10 Numeric Is Patient Pain Free? Yes Yes Yes Wound debrided: left inferior calf Laterality: Left Type of Debridement: Excisional debridement Anesthesia Used: 5% Lidocaine Gel Depth: Down to and including healthy tissue, in the subcutaneous layer Percentage of wound debrided: 100 Instrument Used: 5mm curette Tissue Removed: yellow slough, devitalized tissue Severity: Fat Layer Exposed Amount of bleeding with debridement: Mild Bleeding Controlled with: Compression and gauze Patient tolerated procedure well - Additional Wound Wound debrided: left medial [place] Laterality: Left Type of Debridement: Excisional debridement Anesthesia Used: 5% Lidocaine Gel Depth: Down to and including healthy tissue, in the subcutaneous layer Percentage of wound debrided: 100 Instrument Used: 5mm curette Tissue Removed: yellow slough, devitalized tissue Severity: Fat Layer Exposed Amount of bleeding with debridement: Mild Bleeding Controlled with: Compression and gauze Patient tolerated procedure: Patient tolerated procedure well Assessment/Plan Active Problems Chronic L sided weakness (Chronic) History of DVT (deep vein thrombosis) (Chronic) Lymphedema (Chronic) Chronic pain disorder (Chronic) Venous ulcer of left lower extremity with varicose veins (Chronic) Assessment: Venous ulcers of lower extremities bilaterally. Lymphedema Plan: Mauricio's wounds/ulcers were evaluated and debrided today. Will have him use Aquacel Ag to both wounds. Left superior calf wound/ulcer is healed. Will treat his edema with tubigrips and have him continue to use his lymphedema pumps. Encourage increased protein intake for improved healing. Follow-up in 1 week.
== END 2017-10-09 23:59 ==
LOC: WC 13:30
PROVIDERS: Family Provider Family Medicine; PCP Family Medicine; Visit Provider Family Medicine
DX: I83.022 Varicose veins of left lower extremity with ulcer of calf (principal); L97.222 Non-pressure chronic ulcer of left calf with fat layer exposed; I89.0 Lymphedema, not elsewhere classified; G89.4 Chronic pain syndrome; R60.0 Localized edema; Z86.73 Personal history of transient ischemic attack (TIA), and cerebral infarction without residual deficits; Z86.718 Personal history of other venous thrombosis and embolism; Z79.899 Other long term (current) drug therapy; Z79.01 Long term (current) use of anticoagulants; R53.1 Weakness
CPT/HCPCS: 11042; 11045; 99213; G0463

== ENCOUNTER 2017-11-04 12:45 | Outpatient (RCR) | payer OTHER, SELFPAY ==
[2017-10-10 01:36] VITALS: BP 147/79; PULSE 88; RESP 16; TEMP 35.5; BMI 43.5
[2017-10-28 14:00] VITALS: BMI 43.5
--- NOTE | 2017-10-28 18:27 | PCM.WC.PN ---
(1) History of DVT (deep vein thrombosis) Status: Chronic Current Visit: Yes Code(s): Z86.718 - Personal history of other venous thrombosis and embolism (2) History of CVA (cerebrovascular accident) Status: Chronic Current Visit: Yes Code(s): Z86.73 - Personal history of transient ischemic attack (TIA), and cerebral infarction without residual deficits (3) Lymphedema Status: Chronic Current Visit: Yes Code(s): I89.0 - Lymphedema, not elsewhere classified (4) Venous ulcer of left lower extremity with varicose veins Status: Chronic Current Visit: Yes Code(s): I83.029 - Varicose veins of left lower extremity with ulcer of unspecified site Type of Wound Date of Service: 10/28/17 Chief Complaint: Nonhealing venous ulcer of left lower extremity History of Wound: Mauricio is here today for complaint of nonhealing wound of his left lower extremity which started about a month ago after his skin blistered and the blisters broke. He has been washing his legs and applying silver ointment and gauze daily. He also developed skin tears from tape in the last week on his left [place]ork and left superior calf. He saw his primary care physician and they did wound cultures and dressed his wounds with silvercell and referred him to the wound center for continued treatment. He has chronic edema of his lower extremities the left greater than the right status post stroke. He has compression stockings and lymphedema pumps. He does not wear the compression stockings all of the time due to causing pain in his left foot. He has not been as compliant with his lymphedema pumps due to pain/pressure that he gets in his left side during treatments but he has done it several times this week since seeing his PCP but has done the treatments lying in bed which has seemed to help a little. His last vascular studies were in 2014 when he was seen here for treatment of similar ulcers. His current ulcer is in the same spot as one of his previous ulcers. Progress of Wound: Mauricio is here today for follow up of venous ulcers and nonhealing wounds of his left lower leg. The skin tears have improved and his venous ulcer is mildly improved. He has a new skin tear on his lateral left leg from gauze. He has been using raw honey to his wounds as well as the Aquacel Ag. He completed antibiotics. He has not been compliant with compression due to pain. Denies fever or chills or increased drainage or increased pain. - Physical Exam Vital Signs Temp Pulse Resp BP 96 F L 88 16 147/79 H 10/10/17 01:36 10/10/17 01:36 10/10/17 01:36 10/10/17 01:36 General: Alert, Oriented x3, Cooperative, No apparent distress HEENT: Atraumatic, Normocephalic Abdomen: Obese Extremities: Edema Skin: Ulcer/ Wound Wound Measurements and Assessment - Nurse 1 - General Ulcer Measurement Start: 10/28/17 14:00 Freq: Status: Active Protocol: Activity Type Activity Date Activity User E-Sign Co-Sign Detail Recorded Client Recorded Date Recorded By Document 10/28/17 14:00 RB [id number] 10/28/17 14:32 RB 10/28/17 14:00 Wound Center Nurse 1 [Ulcer Assessment Protocol: .WD.LOC] #7- LT INFERIOR CALF -Combined with other wound No -Current Size (cm) - Length 2.1 -Current Size (cm) - Width 2.7 -Current Size (cm) - Depth 0.1 -Total Square Cm 5.67 -Photo Taken Yes -Tunneling No -Undermining/Tunneling No -Circular Undermining No -Classification - Thickness Full Thickness without Exposed Support Structure -Exudate Amt Small (1-33%) -Exudate Type Serosanguineous -Wound Margin Distinct, Outline Attached -Granulation Amt Medium (34-66%) -Granulation Quality [place] -Slough/Fibrin Yes -Necrosis Amt Small (1-33%) -Necrotic Tissue Type Adherent Slough -Structure Exposed N/A -Texture (Marie-wound Skin Appearance) Assessed -Moisture (Marie-wound Skin Appearance Assessed ) [place] -Color (Marie-wound Skin Appearance) Assessed -Temperature (Marie-wound Skin No Abnormality Appearance) (Pt Warm) -Tenderness on Palpation (Marie-wound Yes Skin Appearance) -Ulcer Cleansing Wound Cleanser -Anesthetic Used 5% Lidocaine Gel #5- LT MEDIAL [place] -Combined with other wound No -Current Size (cm) - Length 0.3 -Current Size (cm) - Width 0.4 -Current Size (cm) - Depth 0.1 -Total Square Cm 0.12 -Photo Taken Yes -Tunneling No -Undermining/Tunneling No -Circular Undermining No -Classification - Thickness Full Thickness without Exposed Support Structure -Exudate Amt Small (1-33%) -Exudate Type Serosanguineous -Wound Margin Distinct, Outline Attached -Granulation Amt Medium (34-66%) -Granulation Quality [place] -Necrosis Amt Medium (34-66%) -Necrotic Tissue Type Adherent Slough -Structure Exposed N/A -Texture (Marie-wound Skin Appearance) Assessed -Moisture (Marie-wound Skin Appearance Assessed ) Weeping -Color (Marie-wound Skin Appearance) Assessed -Temperature (Marie-wound Skin No Abnormality Appearance) (Pt Warm) -Tenderness on Palpation (Marie-wound No Skin Appearance) -Ulcer Cleansing Rinsed/ Irrigated with Saline -Foul Odor after Cleansing No -Anesthetic Used 5% Lidocaine Gel 4. Left lateral LE -Combined with other wound No -Current Size (cm) - Length 1.9 -Current Size (cm) - Width 3.5 -Current Size (cm) - Depth 0.1 -Total Square Cm 6.65 -Photo Taken Yes -Tunneling No -Undermining/Tunneling No -Circular Undermining No -Classification - Thickness Full Thickness with Exposed Support Structure -Exudate Amt Small (1-33%) -Exudate Type Serosanguineous -Wound Margin Distinct, Outline Attached -Granulation Amt Medium (34-66%) -Granulation Quality [place] -Slough/Fibrin Yes -Necrosis Amt Medium (34-66%) -Necrotic Tissue Type Adherent Slough -Structure Exposed N/A -Texture (Marie-wound Skin Appearance) Assessed -Moisture (Marie-wound Skin Appearance Assessed ) -Color (Marie-wound Skin Appearance) Assessed -Temperature (Marie-wound Skin No Abnormality Appearance) (Pt Warm) -Tenderness on Palpation (Marie-wound No Skin Appearance) -Ulcer Cleansing Rinsed/ Irrigated with Saline -Foul Odor after Cleansing No -Anesthetic Used 5% Lidocaine Gel [Edema Assessment] -Lower Limb Edema Present Yes -Left Calf (cm) 46.5 -Left Ankle (cm) 32.4 WC - Nurse 2 - General Ulcer CM Notes Start: 10/28/17 14:00 Freq: Status: Active Protocol: Activity Type Activity Date Activity User E-Sign Co-Sign Detail Recorded Client Recorded Date Recorded By Document 10/28/17 15:01 [id number] 10/28/17 15:12 10/28/17 15:01 Wound Center Nurse 2 [Procedure/Treatment] #7- LT INFERIOR CALF -Time 15:04 -Correct Patient Yes -Correct Side, Site, Position Yes -Correct Procedure Yes -Procedure Performed Yes -Type of Procedure Debridement -Clinical Debridement Subcutaneous -Post Debridement Size (cm) - Length 2.1 -Post Debridement Size (cm) - Width 2.3 -Post Debridement Size (cm) - Depth 0.1 -Total Square Cm 4.83 -Wound/Ulcer Outcome Not Healed -Ulcer Cleansing Rinsed/ Irrigated with Saline -Foul Odor after Cleansing No -Bioengineered Tissue No -Cetacaine [place] No -Topical Lidocaine (%) 5 -Bleeding Controlled with Pressure -Treatment Response Procedure Tolerated Well #5- LT MEDIAL [place] -Time 15:04 -Correct Patient Yes -Correct Side, Site, Position Yes -Correct Procedure Yes -Procedure Performed Yes -Type of Procedure Debridement -Clinical Debridement Subcutaneous -Post Debridement Size (cm) - Length 0.6 -Post Debridement Size (cm) - Width 5.5 -Post Debridement Size (cm) - Depth 0.1 -Total Square Cm 3.30 -Wound/Ulcer Outcome Not Healed -Ulcer Cleansing Rinsed/ Irrigated with Saline -Foul Odor after Cleansing No -Bioengineered Tissue No -Cetacaine [place] No -Topical Lidocaine (%) 5 -Bleeding Controlled with Pressure -Treatment Response Procedure Tolerated Well 4. Left lateral LE -Time 15:04 -Correct Patient Yes -Correct Side, Site, Position Yes -Correct Procedure Yes -Procedure Performed Yes -Type of Procedure Debridement -Clinical Debridement Subcutaneous -Post Debridement Size (cm) - Length 4.4 -Post Debridement Size (cm) - Width 2.4 -Post Debridement Size (cm) - Depth 0.1 -Total Square Cm 10.56 -Wound/Ulcer Outcome Not Healed -Ulcer Cleansing Rinsed/ Irrigated with Saline -Foul Odor after Cleansing No -Bioengineered Tissue No -Cetacaine [place] No -Topical Lidocaine (%) 5 -Bleeding Controlled with Pressure -Treatment Response Procedure Tolerated Well [See Physician Procedure note for Specifics] Pain Scale: 0-10 Numeric [Pain] -Is Patient Pain Free? Yes Psych/Mental Status: Normal Affect, Appropriate Debridement Note Post-Debridement Measurements/Treatment WC - Nurse 2 - General Ulcer CM Notes Start: 10/28/17 14:00 Freq: Status: Active Protocol: Activity Type Activity Date Activity User E-Sign Co-Sign Detail Recorded Client Recorded Date Recorded By Document 10/28/17 15:01 [id number] 10/28/17 15:12 10/28/17 15:01 Wound Center Nurse 2 #7- LT INFERIOR CALF -Time 15:04 -Correct Patient Yes -Correct Side, Site, Position Yes -Correct Procedure Yes -Procedure Performed Yes -Type of Procedure Debridement -Clinical Debridement Subcutaneous -Post Debridement Size (cm) - Length 2.1 -Post Debridement Size (cm) - Width 2.3 -Post Debridement Size (cm) - Depth 0.1 -Total Square Cm 4.83 -Wound/Ulcer Outcome Not Healed -Ulcer Cleansing Rinsed/ Irrigated with Saline -Foul Odor after Cleansing No -Bioengineered Tissue No -Cetacaine [place] No -Topical Lidocaine (%) 5 -Bleeding Controlled with Pressure -Treatment Response Procedure Tolerated Well #5- LT MEDIAL [place] -Time 15:04 -Correct Patient Yes -Correct Side, Site, Position Yes -Correct Procedure Yes -Procedure Performed Yes -Type of Procedure Debridement -Clinical Debridement Subcutaneous -Post Debridement Size (cm) - Length 0.6 -Post Debridement Size (cm) - Width 5.5 -Post Debridement Size (cm) - Depth 0.1 -Total Square Cm 3.30 -Wound/Ulcer Outcome Not Healed -Ulcer Cleansing Rinsed/ Irrigated with Saline -Foul Odor after Cleansing No -Bioengineered Tissue No -Cetacaine [place] No -Topical Lidocaine (%) 5 -Bleeding Controlled with Pressure -Treatment Response Procedure Tolerated Well 4. Left lateral LE -Time 15:04 -Correct Patient Yes -Correct Side, Site, Position Yes -Correct Procedure Yes -Procedure Performed Yes -Type of Procedure Debridement -Clinical Debridement Subcutaneous -Post Debridement Size (cm) - Length 4.4 -Post Debridement Size (cm) - Width 2.4 -Post Debridement Size (cm) - Depth 0.1 -Total Square Cm 10.56 -Wound/Ulcer Outcome Not Healed -Ulcer Cleansing Rinsed/ Irrigated with Saline -Foul Odor after Cleansing No -Bioengineered Tissue No -Cetacaine [place] No -Topical Lidocaine (%) 5 -Bleeding Controlled with Pressure -Treatment Response Procedure Tolerated Well Pain Scale: 0-10 Numeric Is Patient Pain Free? Yes Wound debrided: left inferior calf Laterality: Left Type of Debridement: Excisional debridement Anesthesia Used: 5% Lidocaine Gel Depth: Down to and including healthy tissue, in the subcutaneous layer Percentage of wound debrided: 100 Instrument Used: 5mm curette Tissue Removed: yellow slough, devitalized tissue Severity: Fat Layer Exposed Amount of bleeding with debridement: Mild Bleeding Controlled with: Compression and gauze Patient tolerated procedure well - Additional Wound Wound debrided: left medial [place] Laterality: Left Type of Debridement: Excisional debridement Anesthesia Used: 5% Lidocaine Gel Depth: Down to and including healthy tissue, in the subcutaneous layer Percentage of wound debrided: 100 Instrument Used: 5mm curette Tissue Removed: yellow slough, devitalized tissue Severity: Fat Layer Exposed Amount of bleeding with debridement: Mild Bleeding Controlled with: Pressure Patient tolerated procedure: Patient tolerated procedure well - Additional Wound Wound debrided: left lateral LE Laterality: Left Type of Debridement: Excisional debridement Anesthesia Used: 5% Lidocaine Gel Depth: Down to and including healthy tissue, in the subcutaneous layer Percentage of wound debrided: 100 Instrument Used: 5mm curette Tissue Removed: yellow slough, devitalized tissue Severity: Fat Layer Exposed Amount of bleeding with debridement: Mild Bleeding Controlled with: Compression and gauze Patient tolerated procedure: Patient tolerated procedure well Assessment/Plan Active Problems History of DVT (deep vein thrombosis) (Chronic) History of CVA (cerebrovascular accident) (Chronic) Lymphedema (Chronic) Venous ulcer of left lower extremity with varicose veins (Chronic) Assessment: Venous ulcers of lower extremities bilaterally. Lymphedema Plan: Mauricio's wounds/ulcers were evaluated and debrided today. Will have him use Aquacel Ag to all wounds. Will treat his edema with tubigrips and have him continue to use his lymphedema pumps. Encourage increased protein intake for improved healing. Follow-up in 1 week.
[2017-11-04 13:00] VITALS: BP 141/77; PULSE 86; RESP 16; TEMP 36.2; BMI 43.5
--- NOTE | 2017-11-04 18:22 | PCM.WC.PN ---
(1) History of DVT (deep vein thrombosis) Status: Chronic Current Visit: Yes Code(s): Z86.718 - Personal history of other venous thrombosis and embolism (2) History of CVA (cerebrovascular accident) Status: Chronic Current Visit: Yes Code(s): Z86.73 - Personal history of transient ischemic attack (TIA), and cerebral infarction without residual deficits (3) Lymphedema Status: Chronic Current Visit: Yes Code(s): I89.0 - Lymphedema, not elsewhere classified (4) Venous ulcer of left lower extremity with varicose veins Status: Chronic Current Visit: Yes Code(s): I83.029 - Varicose veins of left lower extremity with ulcer of unspecified site Type of Wound Date of Service: 11/04/17 Chief Complaint: Nonhealing venous ulcer of left lower extremity History of Wound: Mauricio is here today for complaint of nonhealing wound of his left lower extremity which started about a month ago after his skin blistered and the blisters broke. He has been washing his legs and applying silver ointment and gauze daily. He also developed skin tears from tape in the last week on his left york and left superior calf. He saw his primary care physician and they did wound cultures and dressed his wounds with silvercell and referred him to the wound center for continued treatment. He has chronic edema of his lower extremities the left greater than the right status post stroke. He has compression stockings and lymphedema pumps. He does not wear the compression stockings all of the time due to causing pain in his left foot. He has not been as compliant with his lymphedema pumps due to pain/pressure that he gets in his left side during treatments but he has done it several times this week since seeing his PCP but has done the treatments lying in bed which has seemed to help a little. His last vascular studies were in 2014 when he was seen here for treatment of similar ulcers. His current ulcer is in the same spot as one of his previous ulcers. Progress of Wound: Mauricio is here today for follow up of venous ulcers and nonhealing wounds of his left lower leg. The skin tears have improved and his venous ulcer is mildly improved. He has a new skin tear on his lateral left leg from gauze. He has been using raw honey to his wounds as well as the Aquacel Ag. He completed antibiotics. He has not been compliant with compression pumps due to pain. He did tolerate the tubigrip compression. Denies fever or chills or increased drainage or increased pain. - Physical Exam Vital Signs Temp Pulse Resp BP 97.1 F L 86 16 141/77 H 11/04/17 13:00 11/04/17 13:00 11/04/17 13:00 11/04/17 13:00 General: Alert, Oriented x3, Cooperative, No apparent distress HEENT: Atraumatic, Normocephalic Oral: Moist Mucosa Abdomen: Obese Extremities: Edema Skin: Ulcer/ Wound Wound Measurements and Assessment - Nurse 1 - General Ulcer Measurement Start: 10/28/17 14:00 Freq: Status: Active Protocol: Activity Type Activity Date Activity User E-Sign Co-Sign Detail Recorded Client Recorded Date Recorded By Document 11/04/17 13:00 [facility] [id number] 11/04/17 13:07 [facility] 11/04/17 13:00 Wound Center Nurse 1 [Ulcer Assessment Protocol: .WD.LOC] #7- LT INFERIOR CALF -Combined with other wound No -Current Size (cm) - Length 2.2 -Current Size (cm) - Width 2.5 -Current Size (cm) - Depth 0.1 -Total Square Cm 5.50 -Photo Taken No -Epithelialization None Present -Tunneling No -Undermining/Tunneling No -Exudate Amt Medium (34-66%) -Exudate Type Serosanguineous -Wound Margin Distinct, Outline Attached -Granulation Amt Medium (34-66%) -Granulation Quality Red -Slough/Fibrin Yes -Necrosis Amt Medium (34-66%) -Necrotic Tissue Type Adherent Slough -Structure Exposed None/Limited to Skin Breakdown -Texture (Marie-wound Skin Appearance) Scarring -Moisture (Marie-wound Skin Appearance Dry/Scaly ) -Color (Marie-wound Skin Appearance) Hemosiderin Staining -Temperature (Marie-wound Skin No Abnormality Appearance) (Pt Warm) -Tenderness on Palpation (Marie-wound Yes Skin Appearance) -Ulcer Cleansing Rinsed/ Irrigated with Saline -Foul Odor after Cleansing No -Anesthetic Used 4% Lidocaine Solution 5% Lidocaine Gel #5- LT MEDIAL [place] -Combined with other wound No -Current Size (cm) - Length 0 -Current Size (cm) - Width 0 -Current Size (cm) - Depth 0 -Total Square Cm 0 -Date of Last Picture (Recall this 11/04/17 field) -Photo Taken Yes #8 Left lateral LE -Combined with other wound No -Current Size (cm) - Length 3.5 -Current Size (cm) - Width 2.5 -Current Size (cm) - Depth 0.1 -Total Square Cm 8.75 -Photo Taken No -Epithelialization Small 1-33% -Tunneling No -Undermining/Tunneling No -Exudate Amt Medium (34-66%) -Exudate Type Serosanguineous -Wound Margin Distinct, Outline Attached -Granulation Amt Large (67-100%) -Granulation Quality Red -Slough/Fibrin No -Structure Exposed None/Limited to Skin Breakdown -Texture (Marie-wound Skin Appearance) Scarring -Moisture (Marie-wound Skin Appearance Dry/Scaly ) -Color (Marie-wound Skin Appearance) Hemosiderin Staining -Temperature (Marie-wound Skin No Abnormality Appearance) (Pt Warm) -Tenderness on Palpation (Marie-wound Yes Skin Appearance) -Ulcer Cleansing Rinsed/ Irrigated with Saline -Foul Odor after Cleansing No -Anesthetic Used 4% Lidocaine Solution 5% Lidocaine Gel [Edema Assessment] -Lower Limb Edema Present Yes -Left Calf (cm) 46.2 -Left Ankle (cm) 32.0 WC - Nurse 2 - General Ulcer CM Notes Start: 10/28/17 14:00 Freq: Status: Active Protocol: Activity Type Activity Date Activity User E-Sign Co-Sign Detail Recorded Client Recorded Date Recorded By Document 11/04/17 14:01 [id number] 11/04/17 14:13 11/04/17 14:01 Wound Center Nurse 2 [Procedure/Treatment] #7- LT INFERIOR CALF -Time 14:01 -Correct Patient Yes -Correct Side, Site, Position Yes -Correct Procedure Yes -Procedure Performed Yes -Type of Procedure Debridement -Clinical Debridement Subcutaneous -Post Debridement Size (cm) - Length 2.1 -Post Debridement Size (cm) - Width 2.2 -Post Debridement Size (cm) - Depth 0.2 -Total Square Cm 4.62 -Wound/Ulcer Outcome Not Healed -Ulcer Cleansing Rinsed/ Irrigated with Saline -Foul Odor after Cleansing No -Bioengineered Tissue No -Cetacaine Con[place] No -Topical Lidocaine (%) 5 -Bleeding Controlled with Pressure -Treatment Response Procedure Tolerated Well #5- LT MEDIAL [place] -Time 14:01 -Correct Patient Yes -Correct Side, Site, Position Yes -Correct Procedure Yes -Procedure Performed Yes -Post Debridement Size (cm) - Length 0 -Post Debridement Size (cm) - Width 0 -Post Debridement Size (cm) - Depth 0 -Total Square Cm 0 -Wound/Ulcer Outcome Healed- Epithelialized -Ulcer Cleansing Rinsed/ Irrigated with Saline -Foul Odor after Cleansing No -Bioengineered Tissue No -Cetacaine [place] No -Bleeding Controlled with NA -Treatment Response Procedure Tolerated Well #8 Left lateral LE -Time 14:04 -Correct Patient Yes -Correct Side, Site, Position Yes -Correct Procedure Yes -Procedure Performed Yes -Type of Procedure Debridement -Clinical Debridement Subcutaneous -Post Debridement Size (cm) - Length 3.9 -Post Debridement Size (cm) - Width 1.4 -Post Debridement Size (cm) - Depth 0.1 -Total Square Cm 5.46 -Wound/Ulcer Outcome Not Healed -Ulcer Cleansing Rinsed/ Irrigated with Saline -Foul Odor after Cleansing No -Bioengineered Tissue No -Cetacaine [place] No -Topical Lidocaine (%) 5 -Bleeding Controlled with Pressure -Treatment Response Procedure Tolerated Well [See Physician Procedure note for Specifics] Pain Scale: 0-10 Numeric [Pain] -Is Patient Pain Free? Yes Psych/Mental Status: Normal Affect, Appropriate Debridement Note Post-Debridement Measurements/Treatment WC - Nurse 2 - General Ulcer CM Notes Start: 10/28/17 14:00 Freq: Status: Active Protocol: Activity Type Activity Date Activity User E-Sign Co-Sign Detail Recorded Client Recorded Date Recorded By Document 10/28/17 15:01 [id number] 10/28/17 15:12 TM Document 11/04/17 14:01 [id number] 11/04/17 14:13 TM 10/28/17 11/04/17 15:01 14:01 Wound Center Nurse 2 #7- LT INFERIOR CALF -Time 15:04 14:01 -Correct Patient Yes Yes -Correct Side, Site, Position Yes Yes -Correct Procedure Yes Yes -Procedure Performed Yes Yes -Type of Procedure Debridement Debridement -Clinical Debridement Subcutaneous Subcutaneous -Post Debridement Size (cm) - Length 2.1 2.1 -Post Debridement Size (cm) - Width 2.3 2.2 -Post Debridement Size (cm) - Depth 0.1 0.2 -Total Square Cm 4.83 4.62 -Wound/Ulcer Outcome Not Healed Not Healed -Ulcer Cleansing Rinsed/ Rinsed/ Irrigated with Irrigated with Saline Saline -Foul Odor after Cleansing No No -Bioengineered Tissue No No -Cetacaine [place] No No -Topical Lidocaine (%) 5 5 -Bleeding Controlled with Pressure Pressure -Treatment Response Procedure Procedure Tolerated Well Tolerated Well #5- LT MEDIAL [place] -Time 15:04 14:01 -Correct Patient Yes Yes -Correct Side, Site, Position Yes Yes -Correct Procedure Yes Yes -Procedure Performed Yes Yes -Type of Procedure Debridement -Clinical Debridement Subcutaneous -Post Debridement Size (cm) - Length 0.6 0 -Post Debridement Size (cm) - Width 5.5 0 -Post Debridement Size (cm) - Depth 0.1 0 -Total Square Cm 3.30 0 -Wound/Ulcer Outcome Not Healed Healed- Epithelialized -Ulcer Cleansing Rinsed/ Rinsed/ Irrigated with Irrigated with Saline Saline -Foul Odor after Cleansing No No -Bioengineered Tissue No No -Cetacaine Con[place] No No -Topical Lidocaine (%) 5 -Bleeding Controlled with Pressure NA -Treatment Response Procedure Procedure Tolerated Well Tolerated Well #8 Left lateral LE -Time 15:04 14:04 -Correct Patient Yes Yes -Correct Side, Site, Position Yes Yes -Correct Procedure Yes Yes -Procedure Performed Yes Yes -Type of Procedure Debridement Debridement -Clinical Debridement Subcutaneous Subcutaneous -Post Debridement Size (cm) - Length 4.4 3.9 -Post Debridement Size (cm) - Width 2.4 1.4 -Post Debridement Size (cm) - Depth 0.1 0.1 -Total Square Cm 10.56 5.46 -Wound/Ulcer Outcome Not Healed Not Healed -Ulcer Cleansing Rinsed/ Rinsed/ Irrigated with Irrigated with Saline Saline -Foul Odor after Cleansing No No -Bioengineered Tissue No No -Cetacaine Confluence No No -Topical Lidocaine (%) 5 5 -Bleeding Controlled with Pressure Pressure -Treatment Response Procedure Procedure Tolerated Well Tolerated Well Pain Scale: 0-10 Numeric Is Patient Pain Free? Yes Yes Wound debrided: left medial [place] Laterality: Left No debridement was completed today - wound is healed - Additional Wound Wound debrided: left inferior calf Laterality: Left Type of Debridement: Excisional debridement Anesthesia Used: 5% Lidocaine Gel Depth: Down to and including healthy tissue, in the subcutaneous layer Percentage of wound debrided: 100 Instrument Used: 5mm curette Tissue Removed: yellow slough, devitalized tissue Severity: Fat Layer Exposed Amount of bleeding with debridement: Mild Bleeding Controlled with: Compression and gauze Patient tolerated procedure: Patient tolerated procedure well - Additional Wound Wound debrided: left lateral LE Laterality: Left Type of Debridement: Excisional debridement Anesthesia Used: 5% Lidocaine Gel Depth: Down to and including healthy tissue, in the subcutaneous layer Percentage of wound debrided: 100 Instrument Used: 5mm curette Tissue Removed: yellow slough, devitalized tissue Severity: Fat Layer Exposed Amount of bleeding with debridement: Mild Bleeding Controlled with: Compression and gauze Patient tolerated procedure: Patient tolerated procedure well Assessment/Plan Active Problems History of DVT (deep vein thrombosis) (Chronic) History of CVA (cerebrovascular accident) (Chronic) Lymphedema (Chronic) Venous ulcer of left lower extremity with varicose veins (Chronic) Assessment: Venous ulcers of lower extremities bilaterally. Lymphedema Plan: Mauricio's wounds/ulcers were evaluated and debrided today. He has had increased pain in lateral LE ulcer/wound - wound culture was taken today and will treat based on results. Will have him use Aquacel Ag to all wounds and add venous stasis pad to the left inferior calf ulcer/wound. Will treat his edema with tubigrips and have him continue to try and use his lymphedema pumps. Encourage increased protein intake for improved healing. Follow-up in 1 week.
== END 2017-11-09 23:59 ==
LOC: WC 12:45
PROVIDERS: Family Provider Family Medicine; PCP Family Medicine; Visit Provider Family Medicine
DX: I83.022 Varicose veins of left lower extremity with ulcer of calf (principal); L97.222 Non-pressure chronic ulcer of left calf with fat layer exposed; Z86.718 Personal history of other venous thrombosis and embolism; Z86.73 Personal history of transient ischemic attack (TIA), and cerebral infarction without residual deficits; I89.0 Lymphedema, not elsewhere classified; Z91.19 Patient's noncompliance with other medical treatment and regimen
CPT/HCPCS: 11042; 87070; 87075; 87077; 87186; 87205

== ENCOUNTER 2017-12-02 15:30 | Outpatient (RCR) | payer OTHER, SELFPAY ==
[2017-11-04 13:00] VITALS: BP 141/77
[2017-11-10 00:53] VITALS: PULSE 86; RESP 16; TEMP 36.2
[2017-11-11 13:29] VITALS: BP 148/80; PULSE 77; RESP 16; TEMP 35.3; BMI 43.5
--- NOTE | 2017-11-11 18:19 | PN.PCM_ITS ---
(1) Lymphedema Status: Chronic Current Visit: Yes Code(s): I89.0 - Lymphedema, not elsewhere classified (2) Chronic pain disorder Status: Chronic Current Visit: Yes Code(s): G89.4 - Chronic pain syndrome (3) Venous ulcer of left lower extremity with varicose veins Status: Chronic Current Visit: Yes Code(s): I83.029 - Varicose veins of left lower extremity with ulcer of unspecified site Type of Wound Date of Service: 11/11/17 Chief Complaint: Nonhealing venous ulcer of left lower extremity History of Wound: Mauricio is here today for complaint of nonhealing wound of his left lower extremity which started about a month ago after his skin blistered and the blisters broke. He has been washing his legs and applying silver ointment and gauze daily. He also developed skin tears from tape in the last week on his left york and left superior calf. He saw his primary care physician and they did wound cultures and dressed his wounds with silvercell and referred him to the wound center for continued treatment. He has chronic edema of his lower extremities the left greater than the right status post stroke. He has compression stockings and lymphedema pumps. He does not wear the compression stockings all of the time due to causing pain in his left foot. He has not been as compliant with his lymphedema pumps due to pain/pressure that he gets in his left side during treatments but he has done it several times this week since seeing his PCP but has done the treatments lying in bed which has seemed to help a little. His last vascular studies were in 2014 when he was seen here for treatment of similar ulcers. His current ulcer is in the same spot as one of his previous ulcers. Progress of Wound: Mauricio is here today for follow up of venous ulcers and nonhealing wounds of his left lower leg. The skin tears have improved and his venous ulcer is slightly worsened. His wound cultures were positive for Klebsiella, MRSA, E. coli and Enterobacter. He was started on cefdinir and doxycycline. They were negative for anaerobic bacteria. He has been using raw honey to his wounds as well as the Epulsel Ag. He started antibiotics 2 days ago. He has not been compliant with compression pumps due to pain. He did tolerate the tubigrip compression. Denies fever or chills or increased drainage or increased pain. - Physical Exam Vital Signs Temp Pulse Resp BP 95.5 F L 77 16 148/80 H 11/11/17 13:29 11/11/17 13:29 11/11/17 13:29 11/11/17 13:29 General: Alert, Oriented x3, Cooperative, No apparent distress HEENT: Atraumatic, Normocephalic Oral: Moist Mucosa Abdomen: Obese Extremities: Edema Skin: Ulcer/ Wound Wound Measurements and Assessment WC - Nurse 1 - General Ulcer Measurement Start: 11/11/17 13:29 Freq: Status: Active Protocol: Activity Type Activity Date Activity User E-Sign Co-Sign Detail Recorded Client Recorded Date Recorded By Document 11/11/17 13:29 BM [id number] 11/11/17 13:40 BM 11/11/17 13:29 Wound Center Nurse 1 [Ulcer Assessment Protocol: .WD.LOC] #7- LT INFERIOR CALF [place] -Combined with other wound No -Current Size (cm) - Length 2.2 -Current Size (cm) - Width 2.8 -Current Size (cm) - Depth 0.1 -Total Square Cm 6.16 -Photo Taken No -Epithelialization None Present -Tunneling No -Undermining/Tunneling No -Exudate Amt Small (1-33%) -Exudate Type Serosanguineous -Wound Margin Distinct, Outline Attached -Granulation Amt Medium (34-66%) -Granulation Quality Red -Slough/Fibrin Yes -Necrosis Amt Medium (34-66%) -Necrotic Tissue Type Adherent Slough -Structure Exposed None/Limited to Skin Breakdown -Texture (Marie-wound Skin Appearance) Scarring -Moisture (Marie-wound Skin Appearance Assessed ) -Color (Marie-wound Skin Appearance) Hemosiderin Staining -Temperature (Marie-wound Skin No Abnormality Appearance) (Pt Warm) -Tenderness on Palpation (Marie-wound Yes Skin Appearance) -Ulcer Cleansing Rinsed/ Irrigated with Saline -Foul Odor after Cleansing No -Anesthetic Used 5% Lidocaine Gel #8 Left lateral LE -Combined with other wound No -Current Size (cm) - Length 3.8 -Current Size (cm) - Width 1.7 -Current Size (cm) - Depth 0.1 -Total Square Cm 6.46 -Photo Taken No -Epithelialization Small 1-33% -Tunneling No -Undermining/Tunneling No -Exudate Amt Small (1-33%) -Exudate Type Serosanguineous -Wound Margin Distinct, Outline Attached -Granulation Amt Medium (34-66%) -Granulation Quality Red -Slough/Fibrin Yes -Necrosis Amt Medium (34-66%) -Necrotic Tissue Type Adherent Slough -Structure Exposed N/A -Texture (Marie-wound Skin Appearance) Scarring -Moisture (Marie-wound Skin Appearance Assessed ) -Color (Marie-wound Skin Appearance) Hemosiderin Staining -Temperature (Marie-wound Skin No Abnormality Appearance) (Pt Warm) -Tenderness on Palpation (Marie-wound Yes Skin Appearance) -Ulcer Cleansing Rinsed/ Irrigated with Saline -Foul Odor after Cleansing No -Anesthetic Used 5% Lidocaine Gel [Edema Assessment] -Lower Limb Edema Present Yes -Left Calf (cm) 46.5 -Left Ankle (cm) 32.4 WC - Nurse 2 - General Ulcer CM Notes Start: 11/11/17 13:29 Freq: Status: Active Protocol: Activity Type Activity Date Activity User E-Sign Co-Sign Detail Recorded Client Recorded Date Recorded By Document 11/11/17 14:20 [id number] 11/11/17 14:22 11/11/17 14:20 Wound Center Nurse 2 [Procedure/Treatment] #7- LT INFERIOR CALF CLUSTER -Time 14:20 -Correct Patient Yes -Correct Side, Site, Position Yes -Correct Procedure Yes -Procedure Performed Yes -Type of Procedure Debridement -Clinical Debridement Subcutaneous -Post Debridement Size (cm) - Length 4.2 -Post Debridement Size (cm) - Width 4.4 -Post Debridement Size (cm) - Depth 0.2 -Total Square Cm 18.48 -Wound/Ulcer Outcome Not Healed -Ulcer Cleansing Rinsed/ Irrigated with Saline -Foul Odor after Cleansing No -Bioengineered Tissue No -Cetacaine [place] No -Topical Lidocaine (%) 5 -Bleeding Controlled with Pressure -Treatment Response Procedure Not Tolerated Well #8 Left lateral LE -Time 14:21 -Correct Patient Yes -Correct Side, Site, Position Yes -Correct Procedure Yes -Procedure Performed Yes -Type of Procedure Debridement -Clinical Debridement Subcutaneous -Post Debridement Size (cm) - Length 3.3 -Post Debridement Size (cm) - Width 1.3 -Post Debridement Size (cm) - Depth 0.1 -Total Square Cm 4.29 -Wound/Ulcer Outcome Not Healed -Ulcer Cleansing Rinsed/ Irrigated with Saline -Foul Odor after Cleansing No -Bioengineered Tissue No -Cetacaine [place] No -Topical Lidocaine (%) 5 -Bleeding Controlled with Pressure -Treatment Response Procedure Tolerated Well [See Physician Procedure note for Specifics] Pain Scale: 0-10 Numeric [Pain] -Is Patient Pain Free? Yes Psych/Mental Status: Normal Affect, Appropriate Debridement Note Post-Debridement Measurements/Treatment WC - Nurse 2 - General Ulcer CM Notes Start: 11/11/17 13:29 Freq: Status: Active Protocol: Activity Type Activity Date Activity User E-Sign Co-Sign Detail Recorded Client Recorded Date Recorded By Document 11/11/17 14:20 TM [id number] 11/11/17 14:22 TM 11/11/17 14:20 Wound Center Nurse 2 #7- LT INFERIOR CALF CLUSTER -Time 14:20 -Correct Patient Yes -Correct Side, Site, Position Yes -Correct Procedure Yes -Procedure Performed Yes -Type of Procedure Debridement -Clinical Debridement Subcutaneous -Post Debridement Size (cm) - Length 4.2 -Post Debridement Size (cm) - Width 4.4 -Post Debridement Size (cm) - Depth 0.2 -Total Square Cm 18.48 -Wound/Ulcer Outcome Not Healed -Ulcer Cleansing Rinsed/ Irrigated with Saline -Foul Odor after Cleansing No -Bioengineered Tissue No -Cetacaine [place] No -Topical Lidocaine (%) 5 -Bleeding Controlled with Pressure -Treatment Response Procedure Not Tolerated Well #8 Left lateral LE -Time 14:21 -Correct Patient Yes -Correct Side, Site, Position Yes -Correct Procedure Yes -Procedure Performed Yes -Type of Procedure Debridement -Clinical Debridement Subcutaneous -Post Debridement Size (cm) - Length 3.3 -Post Debridement Size (cm) - Width 1.3 -Post Debridement Size (cm) - Depth 0.1 -Total Square Cm 4.29 -Wound/Ulcer Outcome Not Healed -Ulcer Cleansing Rinsed/ Irrigated with Saline -Foul Odor after Cleansing No -Bioengineered Tissue No -Cetacaine [place] No -Topical Lidocaine (%) 5 -Bleeding Controlled with Pressure -Treatment Response Procedure Tolerated Well Pain Scale: 0-10 Numeric Is Patient Pain Free? Yes Wound debrided: left inferior calf cluster Laterality: Left Type of Debridement: Excisional debridement Anesthesia Used: 5% Lidocaine Gel Depth: Down to and including healthy tissue, in the subcutaneous layer Percentage of wound debrided: 100 Instrument Used: 5mm curette Tissue Removed: yellow slough, devitalized tissue Severity: Fat Layer Exposed Amount of bleeding with debridement: Mild Bleeding Controlled with: Compression and gauze Patient tolerated procedure well - Additional Wound Wound debrided: left lateral LE Laterality: Left Type of Debridement: Excisional debridement Anesthesia Used: 5% Lidocaine Gel Depth: Down to and including healthy tissue, in the subcutaneous layer Percentage of wound debrided: 100 Instrument Used: 5mm curette Tissue Removed: yellow slough, devitalized tissue Severity: Fat Layer Exposed Amount of bleeding with debridement: Mild Bleeding Controlled with: Compression and gauze Patient tolerated procedure: Patient tolerated procedure well Assessment/Plan Active Problems Lymphedema (Chronic) Chronic pain disorder (Chronic) Venous ulcer of left lower extremity with varicose veins (Chronic) Assessment: Venous ulcers of lower extremities bilaterally. Lymphedema Plan: Mauricio's wounds/ulcers were evaluated and debrided today. He continues to have increased pain in lateral LE ulcer/wound - wound culture was positive and he is on doxycycline and cefdinir. Will have him use Aquacel Ag to all wounds and continue venous stasis pad to the left inferior calf ulcer/wound. Will treat his edema with tubigrips and have him continue to try and use his lymphedema pumps. Encourage increased protein intake for improved healing. Follow-up in 1 week.
[2017-11-18 13:33] VITALS: BP 124/74; PULSE 77; RESP 20; TEMP 36.4; BMI 43.5
--- NOTE | 2017-11-18 17:36 | PN.PCM_ITS ---
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 He has been washing his legs and applying silver ointment and gauze daily. He also developed skin tears from tape in the last week on his left [place]ork and left superior calf. He saw his primary care physician and they did wound cultures and dressed his wounds with silvercell and referred him to the wound center for continued treatment. He has chronic edema of his lower extremities the left greater than the right status post stroke. He has compression stockings and lymphedema pumps. He does not wear the compression stockings all of the time due to causing pain in his left foot. He has not been as compliant with his lymphedema pumps due to pain/pressure that he gets in his left side during treatments but he has done it several times this week since seeing his PCP but has done the treatments lying in bed which has seemed to help a little. His last vascular studies were in 2014 when he was seen here for treatment of similar ulcers. His current ulcer is in the same spot as one of his previous ulcers. Progress of Wound: Mauricio is here today for follow up of venous ulcers and nonhealing wounds of his left lower leg. The skin tears have improved and his venous ulcer is slightly worsened. His wound cultures were positive for Klebsiella, MRSA, E. coli and Enterobacter. He was started on cefdinir and doxycycline. He stopped doxycycline yesterday due to severe muscle cramping. He had been using raw honey to his wounds as well as the Aquacel Ag. He has not been compliant with compression pumps due to pain. He did tolerate the tubigrip compression. Denies fever or chills or increased drainage or increased pain. - Physical Exam Vital Signs Temp Pulse Resp BP 97.5 F L 77 20 H 124/74 H 11/18/17 13:33 11/18/17 13:33 11/18/17 13:33 11/18/17 13:33 General: Alert, Oriented x3, Cooperative, No apparent distress HEENT: Atraumatic, Normocephalic Oral: Moist Mucosa Abdomen: Obese Extremities: Edema Skin: Ulcer/ Wound Wound Measurements and Assessment - Nurse 1 - General Ulcer Measurement Start: 11/11/17 13:29 Freq: Status: Active Protocol: Activity Type Activity Date Activity User E-Sign Co-Sign Detail Recorded Client Recorded Date Recorded By Document 11/18/17 13:33 ELIZABETH [id number] 11/18/17 14:03 ELIZABETH 11/18/17 13:33 Wound Center Nurse 1 [Ulcer Assessment Protocol: .WD.LOC] #9 Left Medial-Superior Calf -Combined with other wound No -Current Size (cm) - Length 1.0 -Current Size (cm) - Width 1.9 -Current Size (cm) - Depth 0.1 -Total Square Cm 1.90 -Date of Last Picture (Recall this 11/18/17 field) -Photo Taken Yes -Epithelialization None Present -Tunneling No -Undermining/Tunneling No -Circular Undermining No -Classification - Thickness Full Thickness without Exposed Support Structure -Exudate Amt Small (1-33%) -Exudate Type Serosanguineous -Wound Margin Distinct, Outline Attached -Granulation Amt None Present (0 %) -Granulation Quality N/A -Slough/Fibrin Yes -Necrosis Amt None Present (0 %) -Necrotic Tissue Type Adherent Slough -Structure Exposed None/Limited to Skin Breakdown -Texture (Marie-wound Skin Appearance) Friable -Moisture (Marie-wound Skin Appearance No Abnormality ) -Color (Marie-wound Skin Appearance) Hemosiderin Staining -Temperature (Marie-wound Skin No Abnormality Appearance) (Pt Warm) -Tenderness on Palpation (Marie-wound Yes Skin Appearance) -Ulcer Cleansing Rinsed/ Irrigated with Saline -Foul Odor after Cleansing No -Anesthetic Used 5% Lidocaine Gel #7- LT INFERIOR CALF CLUSTER -Combined with other wound No -Current Size (cm) - Length 2.0 -Current Size (cm) - Width 2.3 -Current Size (cm) - Depth 0.2 -Total Square Cm 4.60 -Photo Taken No -Epithelialization None Present -Tunneling No -Undermining/Tunneling No -Circular Undermining No -Classification - Thickness Full Thickness without Exposed Support Structure -Exudate Amt Small (1-33%) -Exudate Type Serosanguineous -Wound Margin Distinct, Outline Attached -Granulation Amt Small (1-33%) -Granulation Quality Red -Slough/Fibrin Yes -Necrosis Amt None Present (0 %) -Necrotic Tissue Type Adherent Slough -Structure Exposed None/Limited to Skin Breakdown -Texture (Marie-wound Skin Appearance) No Abnormality -Moisture (Marie-wound Skin Appearance No Abnormality ) -Color (Marie-wound Skin Appearance) Hemosiderin Staining -Temperature (Marie-wound Skin No Abnormality Appearance) (Pt Warm) -Tenderness on Palpation (Marie-wound Yes Skin Appearance) -Ulcer Cleansing Rinsed/ Irrigated with Saline -Foul Odor after Cleansing No -Anesthetic Used 5% Lidocaine Gel #8 Left lateral LE -Combined with other wound No -Current Size (cm) - Length 2.9 -Current Size (cm) - Width 1.1 -Current Size (cm) - Depth 0.1 -Total Square Cm 3.19 -Date of Last Picture (Recall this 10/28/17 field) -Photo Taken No -Epithelialization Small 1-33% -Tunneling No -Circular Undermining No -Classification - Thickness Full Thickness without Exposed Support Structure -Exudate Amt Small (1-33%) -Exudate Type Serosanguineous -Wound Margin Distinct, Outline Attached -Granulation Amt Small (1-33%) -Granulation Quality Red -Slough/Fibrin Yes -Necrosis Amt None Present (0 %) -Necrotic Tissue Type Adherent Slough -Structure Exposed N/A -Texture (Marie-wound Skin Appearance) No Abnormality -Moisture (Marie-wound Skin Appearance No Abnormality ) -Color (Marie-wound Skin Appearance) Hemosiderin Staining -Temperature (Marie-wound Skin No Abnormality Appearance) (Pt Warm) -Tenderness on Palpation (Marie-wound Yes Skin Appearance) -Ulcer Cleansing Rinsed/ Irrigated with Saline -Foul Odor after Cleansing No -Anesthetic Used 5% Lidocaine Gel [Edema Assessment] -Lower Limb Edema Present Yes -Point of measurement (cm from the 47.4 medial instep) -Point of Measurement (cm from the 33.5 medial instep) WC - Nurse 2 - General Ulcer CM Notes Start: 11/11/17 13:29 Freq: Status: Active Protocol: Activity Type Activity Date Activity User E-Sign Co-Sign Detail Recorded Client Recorded Date Recorded By Document 11/18/17 14:40 [id number] 11/18/17 14:51 11/18/17 14:40 Wound Center Nurse 2 [Procedure/Treatment] #9 Left Medial-Superior Calf -Time 14:41 -Correct Patient Yes -Correct Side, Site, Position Yes -Correct Procedure Yes -Procedure Performed Yes -Type of Procedure Debridement -Clinical Debridement Subcutaneous -Post Debridement Size (cm) - Length 1.2 -Post Debridement Size (cm) - Width 1.8 -Post Debridement Size (cm) - Depth 0.1 -Total Square Cm 2.16 -Wound/Ulcer Outcome Not Healed -Ulcer Cleansing Rinsed/ Irrigated with Saline -Foul Odor after Cleansing No -Bioengineered Tissue No -Topical Lidocaine (%) 5 -Bleeding Controlled with Pressure -Treatment Response Procedure Tolerated Well #7- LT INFERIOR CALF CLUSTER -Time 14:41 -Correct Patient Yes -Correct Side, Site, Position Yes -Correct Procedure Yes -Procedure Performed Yes -Type of Procedure Debridement -Clinical Debridement Subcutaneous -Post Debridement Size (cm) - Length 2.2 -Post Debridement Size (cm) - Width 0.4 -Post Debridement Size (cm) - Depth 0.1 -Total Square Cm 0.88 -Wound/Ulcer Outcome Not Healed -Ulcer Cleansing Rinsed/ Irrigated with Saline -Foul Odor after Cleansing No -Bioengineered Tissue No -Topical Lidocaine (%) 5 -Bleeding Controlled with Pressure -Treatment Response Procedure Tolerated Well #8 Left lateral LE -Time 14:41 -Correct Patient Yes -Correct Side, Site, Position Yes -Correct Procedure Yes -Procedure Performed Yes -Type of Procedure Debridement -Clinical Debridement Subcutaneous -Post Debridement Size (cm) - Length 2.7 -Post Debridement Size (cm) - Width 1.9 -Post Debridement Size (cm) - Depth 0.1 -Total Square Cm 5.13 -Wound/Ulcer Outcome Not Healed -Ulcer Cleansing Rinsed/ Irrigated with Saline -Foul Odor after Cleansing No -Bioengineered Tissue No -Topical Lidocaine (%) 5 -Bleeding Controlled with Pressure -Treatment Response Procedure Not Tolerated Well [See Physician Procedure note for Specifics] Pain Scale: 0-10 Numeric [Pain] -Is Patient Pain Free? Yes Psych/Mental Status: Normal Affect, Appropriate Debridement Note Post-Debridement Measurements/Treatment WC - Nurse 2 - General Ulcer CM Notes Start: 11/11/17 13:29 Freq: Status: Active Protocol: Activity Type Activity Date Activity User E-Sign Co-Sign Detail Recorded Client Recorded Date Recorded By Document 11/11/17 14:20 [id number] 11/11/17 14:22 TM Document 11/18/17 14:40 [id number] 11/18/17 14:51 TM 11/11/17 11/18/17 14:20 14:40 Wound Center Nurse 2 #9 Left Medial-Superior Calf -Time 14:41 -Correct Patient Yes -Correct Side, Site, Position Yes -Correct Procedure Yes -Procedure Performed Yes -Type of Procedure Debridement -Clinical Debridement Subcutaneous -Post Debridement Size (cm) - Length 1.2 -Post Debridement Size (cm) - Width 1.8 -Post Debridement Size (cm) - Depth 0.1 -Total Square Cm 2.16 -Wound/Ulcer Outcome Not Healed -Ulcer Cleansing Rinsed/ Irrigated with Saline -Foul Odor after Cleansing No -Bioengineered Tissue No -Topical Lidocaine (%) 5 -Bleeding Controlled with Pressure -Treatment Response Procedure Tolerated Well #7- LT INFERIOR CALF CLUSTER -Time 14:20 14:41 -Correct Patient Yes Yes -Correct Side, Site, Position Yes Yes -Correct Procedure Yes Yes -Procedure Performed Yes Yes -Type of Procedure Debridement Debridement -Clinical Debridement Subcutaneous Subcutaneous -Post Debridement Size (cm) - Length 4.2 2.2 -Post Debridement Size (cm) - Width 4.4 0.4 -Post Debridement Size (cm) - Depth 0.2 0.1 -Total Square Cm 18.48 0.88 -Wound/Ulcer Outcome Not Healed Not Healed -Ulcer Cleansing Rinsed/ Rinsed/ Irrigated with Irrigated with Saline Saline -Foul Odor after Cleansing No No -Bioengineered Tissue No No -Cetacaine [place] No -Topical Lidocaine (%) 5 5 -Bleeding Controlled with Pressure Pressure -Treatment Response Procedure Not Procedure Tolerated Well Tolerated Well #8 Left lateral LE -Time 14:21 14:41 -Correct Patient Yes Yes -Correct Side, Site, Position Yes Yes -Correct Procedure Yes Yes -Procedure Performed Yes Yes -Type of Procedure Debridement Debridement -Clinical Debridement Subcutaneous Subcutaneous -Post Debridement Size (cm) - Length 3.3 2.7 -Post Debridement Size (cm) - Width 1.3 1.9 -Post Debridement Size (cm) - Depth 0.1 0.1 -Total Square Cm 4.29 5.13 -Wound/Ulcer Outcome Not Healed Not Healed -Ulcer Cleansing Rinsed/ Rinsed/ Irrigated with Irrigated with Saline Saline -Foul Odor after Cleansing No No -Bioengineered Tissue No No -Cetacaine [place] No -Topical Lidocaine (%) 5 5 -Bleeding Controlled with Pressure Pressure -Treatment Response Procedure Procedure Not Tolerated Well Tolerated Well Pain Scale: 0-10 Numeric Is Patient Pain Free? Yes Yes Wound debrided: left medial superior calf Laterality: Left Type of Debridement: Excisional debridement Anesthesia Used: 4% Lidocaine Solution, 5% Lidocaine Gel Depth: Down to and including healthy tissue, in the subcutaneous layer Percentage of wound debrided: 100 Instrument Used: 5mm curette Tissue Removed: yellow slough, devitalized tissue Severity: Fat Layer Exposed Amount of bleeding with debridement: Mild Bleeding Controlled with: Compression and gauze Patient tolerated procedure well - Additional Wound Wound debrided: left inferior calf cluster Laterality: Left Type of Debridement: Excisional debridement Anesthesia Used: 4% Lidocaine Solution, 5% Lidocaine Gel Depth: Down to and including healthy tissue, in the subcutaneous layer Percentage of wound debrided: 100 Instrument Used: 5mm curette Tissue Removed: yellow slough, devitalized tissue Severity: Fat Layer Exposed Amount of bleeding with debridement: Mild Bleeding Controlled with: Compression and gauze Patient tolerated procedure: Patient tolerated procedure well - Additional Wound Wound debrided: left lateral calf cluster Laterality: Left Type of Debridement: Excisional debridement Anesthesia Used: 4% Lidocaine Solution, 5% Lidocaine Gel Depth: Down to and including healthy tissue, in the subcutaneous layer Percentage of wound debrided: 100 Instrument Used: 5mm curette Tissue Removed: yellow slough, devitalized tissue Severity: Fat Layer Exposed Amount of bleeding with debridement: Mild Bleeding Controlled with: Compression and gauze Patient tolerated procedure: Patient tolerated procedure well Assessment/Plan Active Problems Venous ulcer of left lower extremity with varicose veins (Chronic) Chronic pain disorder (Chronic) Lymphedema (Chronic) Assessment: Venous ulcers of lower extremities bilaterally. Lymphedema Plan: Mauricio's wounds/ulcers were evaluated and debrided today. He continues to have pain in his legs. He has a few capsules left of cefdinir. Will have him use Allison to all wounds and continue venous stasis pad to the left inferior calf ulcer/wound. Will treat his edema with tubigrips and have him continue to try and use his lymphedema pumps. Encourage increased protein intake for improved healing. Follow-up in 1 week.
[2017-11-25 16:22] VITALS: BP 137/89; PULSE 75; RESP 20; TEMP 37.2; BMI 43.5
--- NOTE | 2017-11-25 19:25 | PN.PCM_ITS ---
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 He has been washing his legs and applying silver ointment and gauze daily. He also developed skin tears from tape in the last week on his left [place] and left superior calf. He saw his primary care physician and they did wound cultures and dressed his wounds with silvercell and referred him to the wound center for continued treatment. He has chronic edema of his lower extremities the left greater than the right status post stroke. He has compression stockings and lymphedema pumps. He does not wear the compression stockings all of the time due to causing pain in his left foot. He has not been as compliant with his lymphedema pumps due to pain/pressure that he gets in his left side during treatments but he has done it several times this week since seeing his PCP but has done the treatments lying in bed which has seemed to help a little. His last vascular studies were in 2014 when he was seen here for treatment of similar ulcers. His current ulcer is in the same spot as one of his previous ulcers. Progress of Wound: Mauricio is here today for follow up of venous ulcers and nonhealing wounds of his left lower leg. The skin tears have improved and his venous ulcer is slightly worsened. He had been using raw honey to his wounds as well as the Aquacel Ag. He did not get Allison until today. He has not been able to tolerate the gauze on his legs at bedtime and has been trying to figure out a way to keep his dressings in place without gauze. He has not been compliant with compression pumps due to pain. He did tolerate the tubigrip compression. Denies fever or chills or increased drainage or increased pain. - Physical Exam Vital Signs Temp Pulse Resp BP 98.9 F 75 20 H 137/89 H 11/25/17 16:22 18 16:22 11/25/17 16:22 11/25/17 16:22 General: Alert, Oriented x3, Cooperative, No apparent distress HEENT: Atraumatic, Normocephalic Oral: Moist Mucosa Abdomen: Obese Extremities: Edema Skin: Ulcer/ Wound Wound Measurements and Assessment WC - Nurse 1 - General Ulcer Measurement Start: 11/11/17 13:29 Freq: Status: Active Protocol: Activity Type Activity Date Activity User E-Sign Co-Sign Detail Recorded Client Recorded Date Recorded By Document 11/25/17 16:22 [id number] 11/25/17 16:33 JS 11/25/17 16:22 Wound Center Nurse 1 [Ulcer Assessment] #9 Left Medial-Superior Calf -Combined with other wound No -Current Size (cm) - Length 1.3 -Current Size (cm) - Width 2.0 -Current Size (cm) - Depth 0.1 -Total Square Cm 2.60 -Photo Taken No -Epithelialization None Present -Tunneling No -Undermining/Tunneling No -Circular Undermining No -Classification - Thickness Full Thickness without Exposed Support Structure -Exudate Amt Small (1-33%) -Exudate Type Serous -Wound Margin Distinct, Outline Attached -Granulation Amt None Present (0 %) -Granulation Quality N/A -Slough/Fibrin Yes -Necrosis Amt None Present (0 %) -Necrotic Tissue Type Adherent Slough -Structure Exposed None/Limited to Skin Breakdown -Texture (Marie-wound Skin Appearance) Friable -Moisture (Marie-wound Skin Appearance No Abnormality ) -Color (Marie-wound Skin Appearance) Hemosiderin Staining -Temperature (Marie-wound Skin No Abnormality Appearance) (Pt Warm) -Tenderness on Palpation (Marie-wound Yes Skin Appearance) -Ulcer Cleansing Rinsed/ Irrigated with Saline -Foul Odor after Cleansing No -Anesthetic Used 4% Lidocaine Solution 5% Lidocaine Gel #7- LT INFERIOR CALF CLUSTER -Combined with other wound No -Current Size (cm) - Length 2.0 -Current Size (cm) - Width 2.5 -Current Size (cm) - Depth 0.1 -Total Square Cm 5.00 -Photo Taken No -Epithelialization None Present -Tunneling No -Undermining/Tunneling No -Circular Undermining No -Classification - Thickness Full Thickness without Exposed Support Structure -Exudate Amt Small (1-33%) -Exudate Type Yellow/Green -Wound Margin Distinct, Outline Attached -Granulation Amt None Present (0 %) -Granulation Quality N/A -Slough/Fibrin Yes -Necrosis Amt None Present (0 %) -Necrotic Tissue Type Adherent Slough -Structure Exposed None/Limited to Skin Breakdown -Texture (Marie-wound Skin Appearance) No Abnormality -Moisture (Marie-wound Skin Appearance No Abnormality ) -Color (Marie-wound Skin Appearance) Hemosiderin Staining -Temperature (Marie-wound Skin No Abnormality Appearance) (Pt Warm) -Tenderness on Palpation (Marie-wound Yes Skin Appearance) -Ulcer Cleansing Rinsed/ Irrigated with Saline -Foul Odor after Cleansing No -Anesthetic Used 4% Lidocaine Solution 5% Lidocaine Gel #8 Left lateral LE -Combined with other wound No -Current Size (cm) - Length 2.5 -Current Size (cm) - Width 1.6 -Current Size (cm) - Depth 0.1 -Total Square Cm 4.00 -Photo Taken No -Epithelialization None Present -Tunneling No -Circular Undermining No -Classification - Thickness Full Thickness without Exposed Support Structure -Exudate Amt Small (1-33%) -Exudate Type Yellow/Green -Wound Margin Distinct, Outline Attached -Granulation Amt None Present (0 %) -Granulation Quality N/A -Slough/Fibrin Yes -Necrosis Amt None Present (0 %) -Necrotic Tissue Type Adherent Slough -Structure Exposed N/A -Texture (Marie-wound Skin Appearance) No Abnormality -Moisture (Marie-wound Skin Appearance No Abnormality ) -Color (Marie-wound Skin Appearance) Hemosiderin Staining -Temperature (Marie-wound Skin No Abnormality Appearance) (Pt Warm) -Tenderness on Palpation (Marie-wound Yes Skin Appearance) -Ulcer Cleansing Rinsed/ Irrigated with Saline -Foul Odor after Cleansing No -Anesthetic Used 4% Lidocaine Solution 5% Lidocaine Gel [Edema Assessment] -Lower Limb Edema Present Yes -Left Calf (cm) 47.2 -Left Ankle (cm) 32.9 WC - Nurse 2 - General Ulcer CM Notes Start: 11/11/17 13:29 Freq: Status: Active Protocol: Activity Type Activity Date Activity User E-Sign Co-Sign Detail Recorded Client Recorded Date Recorded By Document 11/25/17 16:51 [id number] 11/25/17 17:05 11/25/17 16:51 Wound Center Nurse 2 [Procedure/Treatment] #9 Left Medial-Superior Calf -Time 16:59 -Correct Patient Yes -Correct Side, Site, Position Yes -Correct Procedure Yes -Procedure Performed Yes -Type of Procedure Debridement -Clinical Debridement Subcutaneous -Post Debridement Size (cm) - Length 1.2 -Post Debridement Size (cm) - Width 1.7 -Post Debridement Size (cm) - Depth 0.1 -Total Square Cm 2.04 -Wound/Ulcer Outcome Not Healed -Ulcer Cleansing Rinsed/ Irrigated with Saline -Foul Odor after Cleansing No -Bioengineered Tissue No -Topical Lidocaine (%) 5 -Bleeding Controlled with Pressure -Treatment Response Procedure Tolerated Well #7- LT INFERIOR CALF CLUSTER -Time 16:59 -Correct Patient Yes -Correct Side, Site, Position Yes -Correct Procedure Yes -Procedure Performed Yes -Type of Procedure Debridement -Clinical Debridement Subcutaneous -Post Debridement Size (cm) - Length 2.0 -Post Debridement Size (cm) - Width 2.8 -Post Debridement Size (cm) - Depth 0.2 -Total Square Cm 5.60 -Wound/Ulcer Outcome Not Healed -Ulcer Cleansing Rinsed/ Irrigated with Saline -Foul Odor after Cleansing No -Bioengineered Tissue No -Topical Lidocaine (%) 5 -Bleeding Controlled with Pressure -Treatment Response Procedure Tolerated Well #8 Left lateral LE -Time 16:59 -Correct Patient Yes -Correct Side, Site, Position Yes -Correct Procedure Yes -Procedure Performed Yes -Type of Procedure Debridement -Clinical Debridement Subcutaneous -Post Debridement Size (cm) - Length 2.5 -Post Debridement Size (cm) - Width 1.7 -Post Debridement Size (cm) - Depth 0.1 -Total Square Cm 4.25 -Wound/Ulcer Outcome Not Healed -Ulcer Cleansing Rinsed/ Irrigated with Saline -Foul Odor after Cleansing No -Bioengineered Tissue No -Topical Lidocaine (%) 5 -Bleeding Controlled with Pressure -Treatment Response Procedure Tolerated Well [See Physician Procedure note for Specifics] Pain Scale: 0-10 Numeric [Pain] -Is Patient Pain Free? Yes Psych/Mental Status: Normal Affect, Appropriate Debridement Note Post-Debridement Measurements/Treatment WC - Nurse 2 - General Ulcer CM Notes Start: 11/11/17 13:29 Freq: Status: Active Protocol: Activity Type Activity Date Activity User E-Sign Co-Sign Detail Recorded Client Recorded Date Recorded By Document 11/11/17 14:20 [id number] 11/11/17 14:22 TM Document 11/18/17 14:40 [id number] 11/18/17 14:51 TM Document 11/25/17 16:51 [id number] 11/25/17 17:05 TM 11/11/17 11/18/17 11/25/17 14:20 14:40 16:51 Wound Center Nurse 2 #9 Left Medial-Superior Calf -Time 14:41 16:59 -Correct Patient Yes Yes -Correct Side, Site, Position Yes Yes -Correct Procedure Yes Yes -Procedure Performed Yes Yes -Type of Procedure Debridement Debridement -Clinical Debridement Subcutaneous Subcutaneous -Post Debridement Size (cm) - Length 1.2 1.2 -Post Debridement Size (cm) - Width 1.8 1.7 -Post Debridement Size (cm) - Depth 0.1 0.1 -Total Square Cm 2.16 2.04 -Wound/Ulcer Outcome Not Healed Not Healed -Ulcer Cleansing Rinsed/ Rinsed/ Irrigated with Irrigated with Saline Saline -Foul Odor after Cleansing No No -Bioengineered Tissue No No -Topical Lidocaine (%) 5 5 -Bleeding Controlled with Pressure Pressure -Treatment Response Procedure Procedure Tolerated Well Tolerated Well #7- LT INFERIOR CALF CLUSTER -Time 14:20 14:41 16:59 -Correct Patient Yes Yes Yes -Correct Side, Site, Position Yes Yes Yes -Correct Procedure Yes Yes Yes -Procedure Performed Yes Yes Yes -Type of Procedure Debridement Debridement Debridement -Clinical Debridement Subcutaneous Subcutaneous Subcutaneous -Post Debridement Size (cm) - Length 4.2 2.2 2.0 -Post Debridement Size (cm) - Width 4.4 0.4 2.8 -Post Debridement Size (cm) - Depth 0.2 0.1 0.2 -Total Square Cm 18.48 0.88 5.60 -Wound/Ulcer Outcome Not Healed Not Healed Not Healed -Ulcer Cleansing Rinsed/ Rinsed/ Rinsed/ Irrigated with Irrigated with Irrigated with Saline Saline Saline -Foul Odor after Cleansing No No No -Bioengineered Tissue No No No -Cetacaine [place] No -Topical Lidocaine (%) 5 5 5 -Bleeding Controlled with Pressure Pressure Pressure -Treatment Response Procedure Not Procedure Procedure Tolerated Well Tolerated Well Tolerated Well #8 Left lateral LE -Time 14:21 14:41 16:59 -Correct Patient Yes Yes Yes -Correct Side, Site, Position Yes Yes Yes -Correct Procedure Yes Yes Yes -Procedure Performed Yes Yes Yes -Type of Procedure Debridement Debridement Debridement -Clinical Debridement Subcutaneous Subcutaneous Subcutaneous -Post Debridement Size (cm) - Length 3.3 2.7 2.5 -Post Debridement Size (cm) - Width 1.3 1.9 1.7 -Post Debridement Size (cm) - Depth 0.1 0.1 0.1 -Total Square Cm 4.29 5.13 4.25 -Wound/Ulcer Outcome Not Healed Not Healed Not Healed -Ulcer Cleansing Rinsed/ Rinsed/ Rinsed/ Irrigated with Irrigated with Irrigated with Saline Saline Saline -Foul Odor after Cleansing No No No -Bioengineered Tissue No No No -Cetacaine [place] No -Topical Lidocaine (%) 5 5 5 -Bleeding Controlled with Pressure Pressure Pressure -Treatment Response Procedure Procedure Not Procedure Tolerated Well Tolerated Well Tolerated Well Pain Scale: 0-10 Numeric Is Patient Pain Free? Yes Yes Yes Wound debrided: left medial superior calf Laterality: Left Type of Debridement: Excisional debridement Anesthesia Used: 4% Lidocaine Solution, 5% Lidocaine Gel Depth: Down to and including healthy tissue, in the subcutaneous layer Percentage of wound debrided: 100 Instrument Used: 5mm curette Tissue Removed: yellow slough and devitalized tissue Severity: Fat Layer Exposed Amount of bleeding with debridement: Mild Bleeding Controlled with: Compression and gauze Patient tolerated procedure well - Additional Wound Wound debrided: left inferior calf cluster Laterality: Left Type of Debridement: Excisional debridement Anesthesia Used: 4% Lidocaine Solution, 5% Lidocaine Gel Depth: Down to and including healthy tissue, in the subcutaneous layer Percentage of wound debrided: 100 Instrument Used: 5mm curette Tissue Removed: yellow slough and devitalized tissue Severity: Fat Layer Exposed Amount of bleeding with debridement: Mild Bleeding Controlled with: Compression and gauze Patient tolerated procedure: Patient tolerated procedure well - Additional Wound Wound debrided: left lateral LE Laterality: Left Type of Debridement: Excisional debridement Anesthesia Used: 4% Lidocaine Solution, 5% Lidocaine Gel Depth: Down to and including healthy tissue, in the subcutaneous layer Percentage of wound debrided: 100 Instrument Used: 5mm curette Tissue Removed: yellow slough and devitalized tissue Severity: Fat Layer Exposed Amount of bleeding with debridement: Mild Bleeding Controlled with: Compression and gauze Patient tolerated procedure: Patient tolerated procedure well Assessment/Plan Active Problems Venous ulcer of left lower extremity with varicose veins (Chronic) Chronic pain disorder (Chronic) Lymphedema (Chronic) Assessment: Venous ulcers of lower extremities bilaterally. Lymphedema Plan: Mauricio's wounds/ulcers were evaluated and debrided today. He continues to have pain in his legs. Will have him use Allison to all wounds and continue venous stasis pad to the left inferior calf ulcer/wound. WIll also start having him use tramadol. Will treat his edema with tubigrips and have him continue to try and use his lymphedema pumps. Encourage increased protein intake for improved healing. Follow-up in 1 week.
[2017-12-02 15:40] VITALS: BMI 43.5
--- NOTE | 2017-12-02 17:20 | PN.PCM_ITS ---
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 He has been washing his legs and applying silver ointment and gauze daily. He also developed skin tears from tape in the last week on his left [place] and left superior calf. He saw his primary care physician and they did wound cultures and dressed his wounds with silvercell and referred him to the wound center for continued treatment. He has chronic edema of his lower extremities the left greater than the right status post stroke. He has compression stockings and lymphedema pumps. He does not wear the compression stockings all of the time due to causing pain in his left foot. He has not been as compliant with his lymphedema pumps due to pain/pressure that he gets in his left side during treatments but he has done it several times this week since seeing his PCP but has done the treatments lying in bed which has seemed to help a little. His last vascular studies were in 2014 when he was seen here for treatment of similar ulcers. His current ulcer is in the same spot as one of his previous ulcers. Progress of Wound: Mauricio is here today for follow up of venous ulcers and nonhealing wounds of his left lower leg. The skin tears have improved and his venous ulcer is slightly improved. He has been doing ok with the Allison but has continued to struggle with keeping dressings in place at night. He did find that the KATE bandage helped a little to keep his bandages in place. He has not been compliant with compression pumps due to pain. He did tolerate the tubigrip compression but has been having a hard time with that as well due to increased pain in his left leg as well. Denies fever or chills or increased drainage or increased pain. - Physical Exam Vital Signs Temp Pulse Resp BP 98.9 F 75 20 H 137/89 H 11/25/17 16:22 18 16:22 11/25/17 16:22 11/25/17 16:22 General: Alert, Oriented x3, Cooperative, No apparent distress HEENT: Atraumatic, Normocephalic Oral: Moist Mucosa Abdomen: Obese Extremities: Edema Skin: Ulcer/ Wound Wound Measurements and Assessment WC - Nurse 1 - General Ulcer Measurement Start: 11/11/17 13:29 Freq: Status: Active Protocol: Activity Type Activity Date Activity User E-Sign Co-Sign Detail Recorded Client Recorded Date Recorded By Document 12/02/17 15:40 DV [id number] 12/02/17 15:47 DV 12/02/17 15:40 Wound Center Nurse 1 [Ulcer Assessment] #9 Left Medial-Superior Calf -Combined with other wound No -Current Size (cm) - Length 1.4 -Current Size (cm) - Width 2.2 -Current Size (cm) - Depth 0.1 -Total Square Cm 3.08 -Photo Taken No -Epithelialization None Present -Tunneling No -Undermining/Tunneling No -Classification - Thickness Full Thickness without Exposed Support Structure -Exudate Amt Small (1-33%) -Exudate Type Serosanguineous -Wound Margin Distinct, Outline Attached -Granulation Amt Small (1-33%) -Granulation Quality Red -Slough/Fibrin Yes -Necrosis Amt Medium (34-66%) -Necrotic Tissue Type Adherent Slough -Structure Exposed None/Limited to Skin Breakdown -Texture (Marie-wound Skin Appearance) Assessed Localized Edema -Moisture (Marie-wound Skin Appearance Assessed ) Weeping -Color (Marie-wound Skin Appearance) Assessed Hemosiderin Staining -Temperature (Mraie-wound Skin No Abnormality Appearance) (Pt Warm) -Tenderness on Palpation (Marie-wound No Skin Appearance) -Ulcer Cleansing Rinsed/ Irrigated with Saline -Foul Odor after Cleansing No -Anesthetic Used 4% Lidocaine Solution #7- LT INFERIOR CALF CLUSTER -Combined with other wound No -Current Size (cm) - Length 2.7 -Current Size (cm) - Width 5.0 -Current Size (cm) - Depth 0.2 -Total Square Cm 13.50 -Photo Taken No -Epithelialization None Present -Tunneling No -Undermining/Tunneling No -Circular Undermining No -Classification - Thickness Full Thickness without Exposed Support Structure -Exudate Amt Small (1-33%) -Exudate Type Serosanguineous -Wound Margin Distinct, Outline Attached -Granulation Amt Medium (34-66%) -Granulation Quality Red -Slough/Fibrin Yes -Necrosis Amt Medium (34-66%) -Necrotic Tissue Type Adherent Slough -Structure Exposed None/Limited to Skin Breakdown -Texture (Marie-wound Skin Appearance) Assessed Localized Edema Scarring -Moisture (Marie-wound Skin Appearance Assessed ) Weeping -Color (Marie-wound Skin Appearance) Assessed Hemosiderin Staining -Temperature (Marie-wound Skin No Abnormality Appearance) (Pt Warm) -Ulcer Cleansing Rinsed/ Irrigated with Saline -Foul Odor after Cleansing No -Anesthetic Used 4% Lidocaine Solution #8 Left lateral LE -Combined with other wound No -Current Size (cm) - Length 1.7 -Current Size (cm) - Width 1.2 -Current Size (cm) - Depth 0.1 -Total Square Cm 2.04 -Photo Taken No -Epithelialization None Present -Tunneling No -Undermining/Tunneling No -Circular Undermining No -Classification - Thickness Full Thickness without Exposed Support Structure -Exudate Amt Small (1-33%) -Exudate Type Serosanguineous -Wound Margin Distinct, Outline Attached -Granulation Amt Medium (34-66%) -Granulation Quality Red -Slough/Fibrin Yes -Necrosis Amt Medium (34-66%) -Necrotic Tissue Type Adherent Slough -Structure Exposed None/Limited to Skin Breakdown -Texture (Marie-wound Skin Appearance) Assessed Localized Edema -Moisture (Marie-wound Skin Appearance Assessed ) Weeping -Color (Marie-wound Skin Appearance) Assessed Hemosiderin Staining -Temperature (Marie-wound Skin No Abnormality Appearance) (Pt Warm) -Tenderness on Palpation (Marie-wound No Skin Appearance) -Ulcer Cleansing Rinsed/ Irrigated with Saline -Foul Odor after Cleansing No -Anesthetic Used 4% Lidocaine Solution [Edema Assessment] -Lower Limb Edema Present Yes -Left Calf (cm) 45.0 -Left Ankle (cm) 31.0 WC - Nurse 2 - General Ulcer CM Notes Start: 11/11/17 13:29 Freq: Status: Active Protocol: Activity Type Activity Date Activity User E-Sign Co-Sign Detail Recorded Client Recorded Date Recorded By Document 12/02/17 15:49 [id number] 12/02/17 15:58 12/02/17 15:49 Wound Center Nurse 2 [Procedure/Treatment] #9 Left Medial-Superior Calf -Time 15:53 -Correct Patient Yes -Correct Side, Site, Position Yes -Correct Procedure Yes -Procedure Performed Yes -Type of Procedure Debridement -Clinical Debridement Subcutaneous -Post Debridement Size (cm) - Length 1.5 -Post Debridement Size (cm) - Width 2.2 -Post Debridement Size (cm) - Depth 0.1 -Total Square Cm 3.30 -Wound/Ulcer Outcome Not Healed -Ulcer Cleansing Rinsed/ Irrigated with Saline -Foul Odor after Cleansing No -Bioengineered Tissue No -Topical Lidocaine (%) 5 -Bleeding Controlled with Pressure -Treatment Response Procedure Tolerated Well #7- LT INFERIOR CALF CLUSTER -Time 15:53 -Correct Patient Yes -Correct Side, Site, Position Yes -Correct Procedure Yes -Procedure Performed Yes -Type of Procedure Debridement -Clinical Debridement Subcutaneous -Post Debridement Size (cm) - Length 2.1 -Post Debridement Size (cm) - Width 2.5 -Post Debridement Size (cm) - Depth 0.2 -Total Square Cm 5.25 -Wound/Ulcer Outcome Not Healed -Ulcer Cleansing Rinsed/ Irrigated with Saline -Foul Odor after Cleansing No -Bioengineered Tissue No -Topical Lidocaine (%) 5 -Bleeding Controlled with Pressure -Treatment Response Procedure Not Tolerated Well #8 Left lateral LE -Time 15:54 -Correct Patient Yes -Correct Side, Site, Position Yes -Correct Procedure Yes -Procedure Performed Yes -Type of Procedure Debridement -Clinical Debridement Subcutaneous -Post Debridement Size (cm) - Length 2.4 -Post Debridement Size (cm) - Width 1.4 -Post Debridement Size (cm) - Depth 0.1 -Total Square Cm 3.36 -Wound/Ulcer Outcome Not Healed -Ulcer Cleansing Rinsed/ Irrigated with Saline -Foul Odor after Cleansing No -Bioengineered Tissue No -Topical Lidocaine (%) 5 -Bleeding Controlled with Pressure -Treatment Response Procedure Tolerated Well [See Physician Procedure note for Specifics] Pain Scale: 0-10 Numeric [Pain] -Is Patient Pain Free? Yes Psych/Mental Status: Normal Affect, Appropriate Debridement Note Post-Debridement Measurements/Treatment WC - Nurse 2 - General Ulcer CM Notes Start: 11/11/17 13:29 Freq: Status: Active Protocol: Activity Type Activity Date Activity User E-Sign Co-Sign Detail Recorded Client Recorded Date Recorded By Document 11/11/17 14:20 [id number] 11/11/17 14:22 TM Document 11/18/17 14:40 TM [id number] 11/18/17 14:51 TM Document 11/25/17 16:51 TM [id number] 11/25/17 17:05 TM Document 12/02/17 15:49 TM [id number] 12/02/17 15:58 TM 11/11/17 11/18/17 11/25/17 14:20 14:40 16:51 Wound Center Nurse 2 #9 Left Medial-Superior Calf -Time 14:41 16:59 -Correct Patient Yes Yes -Correct Side, Site, Position Yes Yes -Correct Procedure Yes Yes -Procedure Performed Yes Yes -Type of Procedure Debridement Debridement -Clinical Debridement Subcutaneous Subcutaneous -Post Debridement Size (cm) - Length 1.2 1.2 -Post Debridement Size (cm) - Width 1.8 1.7 -Post Debridement Size (cm) - Depth 0.1 0.1 -Total Square Cm 2.16 2.04 -Wound/Ulcer Outcome Not Healed Not Healed -Ulcer Cleansing Rinsed/ Rinsed/ Irrigated with Irrigated with Saline Saline -Foul Odor after Cleansing No No -Bioengineered Tissue No No -Topical Lidocaine (%) 5 5 -Bleeding Controlled with Pressure Pressure -Treatment Response Procedure Procedure Tolerated Well Tolerated Well #7- LT INFERIOR CALF CLUSTER -Time 14:20 14:41 16:59 -Correct Patient Yes Yes Yes -Correct Side, Site, Position Yes Yes Yes -Correct Procedure Yes Yes Yes -Procedure Performed Yes Yes Yes -Type of Procedure Debridement Debridement Debridement -Clinical Debridement Subcutaneous Subcutaneous Subcutaneous -Post Debridement Size (cm) - Length 4.2 2.2 2.0 -Post Debridement Size (cm) - Width 4.4 0.4 2.8 -Post Debridement Size (cm) - Depth 0.2 0.1 0.2 -Total Square Cm 18.48 0.88 5.60 -Wound/Ulcer Outcome Not Healed Not Healed Not Healed -Ulcer Cleansing Rinsed/ Rinsed/ Rinsed/ Irrigated with Irrigated with Irrigated with Saline Saline Saline -Foul Odor after Cleansing No No No -Bioengineered Tissue No No No -Cetacaine [place] No -Topical Lidocaine (%) 5 5 5 -Bleeding Controlled with Pressure Pressure Pressure -Treatment Response Procedure Not Procedure Procedure Tolerated Well Tolerated Well Tolerated Well #8 Left lateral LE -Time 14:21 14:41 16:59 -Correct Patient Yes Yes Yes -Correct Side, Site, Position Yes Yes Yes -Correct Procedure Yes Yes Yes -Procedure Performed Yes Yes Yes -Type of Procedure Debridement Debridement Debridement -Clinical Debridement Subcutaneous Subcutaneous Subcutaneous -Post Debridement Size (cm) - Length 3.3 2.7 2.5 -Post Debridement Size (cm) - Width 1.3 1.9 1.7 -Post Debridement Size (cm) - Depth 0.1 0.1 0.1 -Total Square Cm 4.29 5.13 4.25 -Wound/Ulcer Outcome Not Healed Not Healed Not Healed -Ulcer Cleansing Rinsed/ Rinsed/ Rinsed/ Irrigated with Irrigated with Irrigated with Saline Saline Saline -Foul Odor after Cleansing No No No -Bioengineered Tissue No No No -Cetacaine [place] No -Topical Lidocaine (%) 5 5 5 -Bleeding Controlled with Pressure Pressure Pressure -Treatment Response Procedure Procedure Not Procedure Tolerated Well Tolerated Well Tolerated Well Pain Scale: 0-10 Numeric Is Patient Pain Free? Yes Yes Yes 12/02/17 15:49 Wound Center Nurse 2 #9 Left Medial-Superior Calf -Time 15:53 -Correct Patient Yes -Correct Side, Site, Position Yes -Correct Procedure Yes -Procedure Performed Yes -Type of Procedure Debridement -Clinical Debridement Subcutaneous -Post Debridement Size (cm) - Length 1.5 -Post Debridement Size (cm) - Width 2.2 -Post Debridement Size (cm) - Depth 0.1 -Total Square Cm 3.30 -Wound/Ulcer Outcome Not Healed -Ulcer Cleansing Rinsed/ Irrigated with Saline -Foul Odor after Cleansing No -Bioengineered Tissue No -Topical Lidocaine (%) 5 -Bleeding Controlled with Pressure -Treatment Response Procedure Tolerated Well #7- LT INFERIOR CALF CLUSTER -Time 15:53 -Correct Patient Yes -Correct Side, Site, Position Yes -Correct Procedure Yes -Procedure Performed Yes -Type of Procedure Debridement -Clinical Debridement Subcutaneous -Post Debridement Size (cm) - Length 2.1 -Post Debridement Size (cm) - Width 2.5 -Post Debridement Size (cm) - Depth 0.2 -Total Square Cm 5.25 -Wound/Ulcer Outcome Not Healed -Ulcer Cleansing Rinsed/ Irrigated with Saline -Foul Odor after Cleansing No -Bioengineered Tissue No -Cetacaine [place] -Topical Lidocaine (%) 5 -Bleeding Controlled with Pressure -Treatment Response Procedure Not Tolerated Well #8 Left lateral LE -Time 15:54 -Correct Patient Yes -Correct Side, Site, Position Yes -Correct Procedure Yes -Procedure Performed Yes -Type of Procedure Debridement -Clinical Debridement Subcutaneous -Post Debridement Size (cm) - Length 2.4 -Post Debridement Size (cm) - Width 1.4 -Post Debridement Size (cm) - Depth 0.1 -Total Square Cm 3.36 -Wound/Ulcer Outcome Not Healed -Ulcer Cleansing Rinsed/ Irrigated with Saline -Foul Odor after Cleansing No -Bioengineered Tissue No -Cetacaine [place] -Topical Lidocaine (%) 5 -Bleeding Controlled with Pressure -Treatment Response Procedure Tolerated Well Pain Scale: 0-10 Numeric Is Patient Pain Free? Yes Wound debrided: left medial superior calf Laterality: Left Type of Debridement: Excisional debridement Anesthesia Used: 4% Lidocaine Solution Depth: Down to and including healthy tissue, in the subcutaneous layer Percentage of wound debrided: 100 Instrument Used: 5mm curette Tissue Removed: yellow slough and devitalized tissue Severity: Fat Layer Exposed Amount of bleeding with debridement: Mild Bleeding Controlled with: Compression and gauze Patient tolerated procedure well - Additional Wound Wound debrided: left inferior calf cluster Laterality: Left Type of Debridement: Excisional debridement Anesthesia Used: 4% Lidocaine Solution Depth: Down to and including healthy tissue, in the subcutaneous layer Percentage of wound debrided: 100 Instrument Used: 5mm curette Tissue Removed: yellow slough and devitalized tissue Severity: Fat Layer Exposed Amount of bleeding with debridement: Mild Bleeding Controlled with: Compression and gauze Patient tolerated procedure: Patient tolerated procedure well - Additional Wound Wound debrided: left lateral LE cluster Laterality: Left Type of Debridement: Excisional debridement Anesthesia Used: 4% Lidocaine Solution Depth: Down to and including healthy tissue, in the subcutaneous layer Percentage of wound debrided: 100 Instrument Used: 5mm curette Tissue Removed: yellow slough and devitalized tissue Severity: Fat Layer Exposed Amount of bleeding with debridement: Mild Bleeding Controlled with: Compression and gauze Patient tolerated procedure: Patient tolerated procedure well Assessment/Plan Active Problems Venous ulcer of left lower extremity with varicose veins (Chronic) Chronic pain disorder (Chronic) Lymphedema (Chronic) Assessment: Venous ulcers of lower extremities bilaterally. Lymphedema Plan: Mauricio's wounds/ulcers were evaluated and debrided today. He continues to have pain in his legs. Will have him continue to use Allison to all wounds and continue venous stasis pad to the left inferior calf ulcer/wound. He was given wound veil to help with keeping his dressings in place without trapping moisture which has happened with Adaptic. Will also apply to his insurance for approval for use of Epifix to heal his wounds as he has had little progress with conservative treatment of his wounds. I feel that advanced wound healing treatment with a skin substitute such as Epifix will help to provide his tissue with growth factors and scaffold to allow new tissue to grow and heal his wounds. Will have him continue to use tramadol for pain relief. Will continue to treat his edema with tubigrips and have him continue to try and use his lymphedema pumps as much as possible. Encourage increased protein intake for improved healing. Follow-up in 1 week.
== END 2017-12-07 23:59 ==
LOC: WC 15:30
PROVIDERS: Family Provider Family Medicine; PCP Family Medicine; Visit Provider Family Medicine
DX: I83.022 Varicose veins of left lower extremity with ulcer of calf (principal); L97.222 Non-pressure chronic ulcer of left calf with fat layer exposed; I89.0 Lymphedema, not elsewhere classified; Z91.19 Patient's noncompliance with other medical treatment and regimen; Z86.73 Personal history of transient ischemic attack (TIA), and cerebral infarction without residual deficits
CPT/HCPCS: 11042; 11045

== ENCOUNTER 2018-01-06 15:00 | Outpatient (RCR) | payer OTHER, SELFPAY ==
[2017-12-08 00:42] VITALS: BP 124/74; PULSE 75; RESP 20; TEMP 37.2; BMI 43.5
[2017-12-09 15:35] VITALS: BP 134/79; PULSE 82; RESP 24; TEMP 36.2; BMI 43.5
--- NOTE | 2017-12-09 18:34 | PN.PCM_ITS ---
(1) History of CVA (cerebrovascular accident) Status: Chronic Current Visit: Yes Code(s): Z86.73 - Personal history of transient ischemic attack (TIA), and cerebral infarction without residual deficits (2) History of DVT (deep vein thrombosis) Status: Chronic Current Visit: Yes Code(s): Z86.718 - Personal history of other venous thrombosis and embolism (3) Venous ulcer of left lower extremity with varicose veins Status: Chronic Current Visit: Yes Code(s): I83.029 - Varicose veins of left lower extremity with ulcer of unspecified site (4) Lymphedema Status: Chronic Current Visit: Yes Code(s): I89.0 - Lymphedema, not elsewhere classified Type of Wound Date of Service: 12/09/17 Chief Complaint: Nonhealing venous ulcer of left lower extremity History of Wound: Mauricio is here today for complaint of nonhealing wound of his left lower extremity which started about a month ago after his skin blistered and the blisters broke. He has been washing his legs and applying silver ointment and gauze daily. He also developed skin tears from tape in the last week on his left [place]ork and left superior calf. He saw his primary care physician and they did wound cultures and dressed his wounds with silvercell and referred him to the wound center for continued treatment. He has chronic edema of his lower extremities the left greater than the right status post stroke. He has compression stockings and lymphedema pumps. He does not wear the compression stockings all of the time due to causing pain in his left foot. He has not been as compliant with his lymphedema pumps due to pain/pressure that he gets in his left side during treatments but he has done it several times this week since seeing his PCP but has done the treatments lying in bed which has seemed to help a little. His last vascular studies were in 2014 when he was seen here for treatment of similar ulcers. His current ulcer is in the same spot as one of his previous ulcers. Progress of Wound: Mauricio is here today for follow up of venous ulcers and nonhealing wounds of his left lower leg. The skin tear has improved and his venous ulcer is slightly improved. He has been doing ok with the Allison. He did find that the KATE bandage helped a little to keep his bandages in place. He has not been compliant with compression pumps due to pain. He did tolerate the tubigrip compression but has been having a hard time with that as well due to increased pain in his left leg as well. He started taking a horse chestnut supplement which seems to have greatly improved his edema. Denies fever or chills or increased drainage or increased pain. - Physical Exam Vital Signs Temp Pulse Resp BP 97.2 F L 82 24 H 134/79 H 12/09/17 15:35 12/09/17 15:35 12/09/17 15:35 12/09/17 15:35 General: Alert, Oriented x3, Cooperative, No apparent distress HEENT: Atraumatic, Normocephalic Oral: Moist Mucosa Abdomen: Obese Extremities: Edema Skin: Ulcer/ Wound Wound Measurements and Assessment WC - Nurse 1 - General Ulcer Measurement Start: 12/09/17 15:35 Freq: Status: Active Protocol: Activity Type Activity Date Activity User E-Sign Co-Sign Detail Recorded Client Recorded Date Recorded By Document 12/09/17 15:35 [id number] 12/09/17 15:59 JS 12/09/17 15:35 Wound Center Nurse 1 [Ulcer Assessment] #9 Left Medial-Superior Calf -Combined with other wound No -Current Size (cm) - Length 0.9 -Current Size (cm) - Width 2.6 -Current Size (cm) - Depth 0.1 -Total Square Cm 2.34 -Date of Last Picture (Recall this 11/18/17 field) -Epithelialization Small 1-33% -Tunneling No -Undermining/Tunneling No -Circular Undermining No -Classification - Thickness Full Thickness without Exposed Support Structure -Exudate Amt Medium (34-66%) -Exudate Type Serous -Wound Margin Distinct, Outline Attached -Granulation Amt Medium (34-66%) -Granulation Quality Pale Red -Slough/Fibrin Yes -Necrosis Amt None Present (0 %) -Necrotic Tissue Type Adherent Slough -Structure Exposed None/Limited to Skin Breakdown -Texture (Marie-wound Skin Appearance) No Abnormality -Moisture (Marie-wound Skin Appearance No Abnormality ) -Color (Marie-wound Skin Appearance) Hemosiderin Staining -Temperature (Marie-wound Skin No Abnormality Appearance) (Pt Warm) -Tenderness on Palpation (Marie-wound No Skin Appearance) -Ulcer Cleansing Rinsed/ Irrigated with Saline -Foul Odor after Cleansing No -Anesthetic Used 4% Lidocaine Solution 5% Lidocaine Gel #7- LT INFERIOR CALF CLUSTER -Combined with other wound No -Current Size (cm) - Length 2.5 -Current Size (cm) - Width 5.0 -Current Size (cm) - Depth 0.1 -Total Square Cm 12.50 -Date of Last Picture (Recall this 11/18/17 field) -Photo Taken No -Epithelialization None Present -Tunneling No -Undermining/Tunneling No -Circular Undermining No -Classification - Thickness Full Thickness without Exposed Support Structure -Exudate Amt Small (1-33%) -Exudate Type Serous -Wound Margin Distinct, Outline Attached -Granulation Amt Small (1-33%) -Granulation Quality Pale Red -Slough/Fibrin Yes -Necrosis Amt None Present (0 %) -Necrotic Tissue Type Adherent Slough -Structure Exposed None/Limited to Skin Breakdown -Texture (Marie-wound Skin Appearance) No Abnormality -Moisture (Marie-wound Skin Appearance No Abnormality ) -Color (Marie-wound Skin Appearance) Hemosiderin Staining -Temperature (Marie-wound Skin No Abnormality Appearance) (Pt Warm) -Tenderness on Palpation (Marie-wound No Skin Appearance) -Ulcer Cleansing Rinsed/ Irrigated with Saline -Foul Odor after Cleansing No -Anesthetic Used 4% Lidocaine Solution 5% Lidocaine Gel #8 Left lateral LE -Combined with other wound No -Current Size (cm) - Length 1.6 -Current Size (cm) - Width 0.9 -Current Size (cm) - Depth 0.1 -Total Square Cm 1.44 -Photo Taken No -Epithelialization None Present -Tunneling No -Undermining/Tunneling No -Circular Undermining No -Classification - Thickness Full Thickness without Exposed Support Structure -Exudate Amt Small (1-33%) -Exudate Type Serous -Wound Margin Distinct, Outline Attached -Granulation Amt Small (1-33%) -Granulation Quality Pale Red -Slough/Fibrin Yes -Necrosis Amt None Present (0 %) -Necrotic Tissue Type Adherent Slough -Structure Exposed None/Limited to Skin Breakdown -Texture (Marie-wound Skin Appearance) No Abnormality -Moisture (Marie-wound Skin Appearance No Abnormality ) -Color (Marie-wound Skin Appearance) Hemosiderin Staining -Temperature (Marie-wound Skin No Abnormality Appearance) (Pt Warm) -Tenderness on Palpation (Marie-wound No Skin Appearance) -Ulcer Cleansing Rinsed/ Irrigated with Saline -Foul Odor after Cleansing No -Anesthetic Used 4% Lidocaine Solution 5% Lidocaine Gel [Edema Assessment] -Lower Limb Edema Present Yes -Left Calf (cm) 46.2 -Left Ankle (cm) 32.0 WC - Nurse 2 - General Ulcer CM Notes Start: 12/09/17 15:35 Freq: Status: Active Protocol: Activity Type Activity Date Activity User E-Sign Co-Sign Detail Recorded Client Recorded Date Recorded By Document 12/09/17 16:10 [id number] 12/09/17 16:21 12/09/17 16:10 Wound Center Nurse 2 [Procedure/Treatment] #9 Left Medial-Superior Calf -Time 16:12 -Correct Patient Yes -Correct Side, Site, Position Yes -Correct Procedure Yes -Procedure Performed Yes -Type of Procedure Debridement -Clinical Debridement Subcutaneous -Post Debridement Size (cm) - Length 1.8 -Post Debridement Size (cm) - Width 2.3 -Post Debridement Size (cm) - Depth 0.1 -Total Square Cm 4.14 -Wound/Ulcer Outcome Not Healed -Ulcer Cleansing Rinsed/ Irrigated with Saline -Foul Odor after Cleansing No -Bioengineered Tissue No -Topical Lidocaine (%) 4 -Bleeding Controlled with Pressure -Treatment Response Procedure Tolerated Well #7- LT INFERIOR CALF CLUSTER -Time 16:12 -Correct Patient Yes -Correct Side, Site, Position Yes -Correct Procedure Yes -Procedure Performed Yes -Type of Procedure Debridement -Clinical Debridement Subcutaneous -Post Debridement Size (cm) - Length 2.1 -Post Debridement Size (cm) - Width 2.5 -Post Debridement Size (cm) - Depth 0.1 -Total Square Cm 5.25 -Wound/Ulcer Outcome Not Healed -Ulcer Cleansing Rinsed/ Irrigated with Saline -Foul Odor after Cleansing No -Bioengineered Tissue No -Topical Lidocaine (%) 4 -Bleeding Controlled with Pressure -Treatment Response Procedure Tolerated Well #8 Left lateral LE -Time 16:12 -Correct Patient Yes -Correct Side, Site, Position Yes -Correct Procedure Yes -Procedure Performed Yes -Type of Procedure Debridement -Clinical Debridement Subcutaneous -Post Debridement Size (cm) - Length 1.2 -Post Debridement Size (cm) - Width 1.2 -Post Debridement Size (cm) - Depth 0.1 -Total Square Cm 1.44 -Wound/Ulcer Outcome Not Healed -Ulcer Cleansing Rinsed/ Irrigated with Saline -Foul Odor after Cleansing No -Bioengineered Tissue No -Topical Lidocaine (%) 4 -Bleeding Controlled with Pressure -Treatment Response Procedure Tolerated Well [See Physician Procedure note for Specifics] Pain Scale: 0-10 Numeric [Pain] -Is Patient Pain Free? Yes Psych/Mental Status: Normal Affect, Appropriate Debridement Note Post-Debridement Measurements/Treatment WC - Nurse 2 - General Ulcer CM Notes Start: 12/09/17 15:35 Freq: Status: Active Protocol: Activity Type Activity Date Activity User E-Sign Co-Sign Detail Recorded Client Recorded Date Recorded By Document 12/09/17 16:10 TM [id number] 12/09/17 16:21 TM 12/09/17 16:10 Wound Center Nurse 2 #9 Left Medial-Superior Calf -Time 16:12 -Correct Patient Yes -Correct Side, Site, Position Yes -Correct Procedure Yes -Procedure Performed Yes -Type of Procedure Debridement -Clinical Debridement Subcutaneous -Post Debridement Size (cm) - Length 1.8 -Post Debridement Size (cm) - Width 2.3 -Post Debridement Size (cm) - Depth 0.1 -Total Square Cm 4.14 -Wound/Ulcer Outcome Not Healed -Ulcer Cleansing Rinsed/ Irrigated with Saline -Foul Odor after Cleansing No -Bioengineered Tissue No -Topical Lidocaine (%) 4 -Bleeding Controlled with Pressure -Treatment Response Procedure Tolerated Well #7- LT INFERIOR CALF CLUSTER -Time 16:12 -Correct Patient Yes -Correct Side, Site, Position Yes -Correct Procedure Yes -Procedure Performed Yes -Type of Procedure Debridement -Clinical Debridement Subcutaneous -Post Debridement Size (cm) - Length 2.1 -Post Debridement Size (cm) - Width 2.5 -Post Debridement Size (cm) - Depth 0.1 -Total Square Cm 5.25 -Wound/Ulcer Outcome Not Healed -Ulcer Cleansing Rinsed/ Irrigated with Saline -Foul Odor after Cleansing No -Bioengineered Tissue No -Topical Lidocaine (%) 4 -Bleeding Controlled with Pressure -Treatment Response Procedure Tolerated Well #8 Left lateral LE -Time 16:12 -Correct Patient Yes -Correct Side, Site, Position Yes -Correct Procedure Yes -Procedure Performed Yes -Type of Procedure Debridement -Clinical Debridement Subcutaneous -Post Debridement Size (cm) - Length 1.2 -Post Debridement Size (cm) - Width 1.2 -Post Debridement Size (cm) - Depth 0.1 -Total Square Cm 1.44 -Wound/Ulcer Outcome Not Healed -Ulcer Cleansing Rinsed/ Irrigated with Saline -Foul Odor after Cleansing No -Bioengineered Tissue No -Topical Lidocaine (%) 4 -Bleeding Controlled with Pressure -Treatment Response Procedure Tolerated Well Pain Scale: 0-10 Numeric Is Patient Pain Free? Yes Wound debrided: left medial superior calf Laterality: Left Type of Debridement: Excisional debridement Anesthesia Used: 4% Lidocaine Solution, 5% Lidocaine Gel Depth: Down to and including healthy tissue, in the subcutaneous layer Percentage of wound debrided: 100 Instrument Used: 5mm curette Tissue Removed: yellow slough and devitalized tissue Severity: Fat Layer Exposed Amount of bleeding with debridement: Mild Bleeding Controlled with: Compression and gauze Patient tolerated procedure well - Additional Wound Wound debrided: left medial inferior calf cluster Laterality: Left Type of Debridement: Excisional debridement Anesthesia Used: 4% Lidocaine Solution, 5% Lidocaine Gel Depth: Down to and including healthy tissue, in the subcutaneous layer Percentage of wound debrided: 100 Instrument Used: 5mm curette Tissue Removed: yellow slough and devitalized tissue Severity: Fat Layer Exposed Amount of bleeding with debridement: Mild Bleeding Controlled with: Compression and gauze Patient tolerated procedure: Patient tolerated procedure well - Additional Wound Wound debrided: left lateral LE Type of Debridement: Excisional debridement Anesthesia Used: 4% Lidocaine Solution, 5% Lidocaine Gel Depth: Down to and including healthy tissue, in the subcutaneous layer Percentage of wound debrided: 100 Instrument Used: 5mm curette Tissue Removed: yellow slough and devitalized tissue Severity: Fat Layer Exposed Amount of bleeding with debridement: Mild Bleeding Controlled with: Compression and gauze Patient tolerated procedure: Patient tolerated procedure well Assessment/Plan Active Problems History of CVA (cerebrovascular accident) (Chronic) History of DVT (deep vein thrombosis) (Chronic) Venous ulcer of left lower extremity with varicose veins (Chronic) Lymphedema (Chronic) Assessment: Venous ulcers of lower extremities bilaterally. Lymphedema Plan: Mauricio's wounds/ulcers were evaluated and debrided today. He continues to have pain in his legs. Will have him continue to use Allison to all wounds and continue venous stasis pad to the left inferior calf ulcer/wound. He was given wound veil to help with keeping his dressings in place without trapping moisture which has happened with Adaptic. Insurance approved Epifix but it requires a 25% co-insurance out of pocket expense for him which would be 250- 300 dollars depending on the size we used. He is going to consider this. Will have him continue to use tramadol for pain relief. Will continue to treat his edema with tubigrips and have him continue to try and use his lymphedema pumps as much as possible. Encourage increased protein intake for improved healing. Follow-up in 1 week.
[2017-12-16 15:48] VITALS: BMI 43.5
--- NOTE | 2017-12-16 17:20 | PCM.WC.PN ---
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 He has been washing his legs and applying silver ointment and gauze daily. He also developed skin tears from tape in the last week on his left [place]ork and left superior calf. He saw his primary care physician and they did wound cultures and dressed his wounds with silvercell and referred him to the wound center for continued treatment. He has chronic edema of his lower extremities the left greater than the right status post stroke. He has compression stockings and lymphedema pumps. He does not wear the compression stockings all of the time due to causing pain in his left foot. He has not been as compliant with his lymphedema pumps due to pain/pressure that he gets in his left side during treatments but he has done it several times this week since seeing his PCP but has done the treatments lying in bed which has seemed to help a little. His last vascular studies were in 2014 when he was seen here for treatment of similar ulcers. His current ulcer is in the same spot as one of his previous ulcers. Progress of Wound: Mauricio is here today for follow up of venous ulcers and nonhealing wounds of his left lower leg. The skin tear has improved and his venous ulcer is slightly improved. He used Aquacel Ag once this week and honey and collagen hydrogel another day. He has not been compliant with compression pumps due to pain. He did tolerate the tubigrip compression but has been having a hard time with that as well due to increased pain in his left leg as well. He started taking a horse chestnut supplement which seems to have greatly improved his edema. Denies fever or chills or increased drainage or increased pain. - Physical Exam Vital Signs Temp Pulse Resp BP 97.2 F L 82 24 H 134/79 H 12/09/17 15:35 12/09/17 15:35 12/09/17 15:35 12/09/17 15:35 Wound Measurements and Assessment WC - Nurse 1 - General Ulcer Measurement Start: 12/09/17 15:35 Freq: Status: Active Protocol: Activity Type Activity Date Activity User E-Sign Co-Sign Detail Recorded Client Recorded Date Recorded By Document 12/16/17 15:48 DV [id number] 12/16/17 15:55 DV 12/16/17 15:48 Wound Center Nurse 1 [Ulcer Assessment] #9 Left Medial-Superior Calf -Combined with other wound No -Current Size (cm) - Length 1.9 -Current Size (cm) - Width 2.7 -Current Size (cm) - Depth 0.1 -Total Square Cm 5.13 -Photo Taken No -Epithelialization Small 1-33% -Tunneling No -Undermining/Tunneling No -Circular Undermining No -Classification - Thickness Full Thickness without Exposed Support Structure -Exudate Amt Small (1-33%) -Exudate Type Serosanguineous -Wound Margin Distinct, Outline Attached -Granulation Amt Small (1-33%) -Granulation Quality [place] -Slough/Fibrin Yes -Necrosis Amt Medium (34-66%) -Necrotic Tissue Type Adherent Slough -Structure Exposed None/Limited to Skin Breakdown -Texture (Marie-wound Skin Appearance) Assessed Localized Edema Scarring -Moisture (Marie-wound Skin Appearance No Abnormality ) Assessed -Color (Marie-wound Skin Appearance) Assessed Hemosiderin Staining -Temperature (Marie-wound Skin No Abnormality Appearance) (Pt Warm) -Tenderness on Palpation (Marie-wound Yes Skin Appearance) -Ulcer Cleansing Rinsed/ Irrigated with Saline -Foul Odor after Cleansing No -Anesthetic Used 4% Lidocaine Solution 5% Lidocaine Gel #7- LT INFERIOR CALF CLUSTER -Combined with other wound No -Current Size (cm) - Length 1.8 -Current Size (cm) - Width 2.2 -Current Size (cm) - Depth 0.1 -Total Square Cm 3.96 -Photo Taken No -Epithelialization Small 1-33% -Tunneling No -Undermining/Tunneling No -Circular Undermining No -Classification - Thickness Full Thickness without Exposed Support Structure -Exudate Amt Small (1-33%) -Exudate Type Serosanguineous -Wound Margin Distinct, Outline Attached -Granulation Amt Small (1-33%) -Granulation Quality Pale -Slough/Fibrin Yes -Necrosis Amt Medium (34-66%) -Necrotic Tissue Type Adherent Slough -Structure Exposed None/Limited to Skin Breakdown -Texture (Marie-wound Skin Appearance) Assessed Localized Edema Scarring -Moisture (Marie-wound Skin Appearance Assessed ) Weeping -Color (Marie-wound Skin Appearance) Assessed Hemosiderin Staining -Temperature (Marie-wound Skin No Abnormality Appearance) (Pt Warm) -Ulcer Cleansing Rinsed/ Irrigated with Saline -Foul Odor after Cleansing Yes -Anesthetic Used 4% Lidocaine Solution 5% Lidocaine Gel #8 Left lateral LE -Combined with other wound No -Current Size (cm) - Length 0.9 -Current Size (cm) - Width 1.0 -Current Size (cm) - Depth 0.1 -Total Square Cm 0.90 -Photo Taken No -Epithelialization None Present -Tunneling No -Undermining/Tunneling No -Circular Undermining No -Classification - Thickness Full Thickness without Exposed Support Structure -Exudate Amt None Present (0 %) -Wound Margin Flat & Intact -Granulation Amt Small (1-33%) -Granulation Quality [place] -Slough/Fibrin Yes -Necrosis Amt Large (67-100%) -Necrotic Tissue Type Adherent Slough -Structure Exposed None/Limited to Skin Breakdown -Texture (Marie-wound Skin Appearance) Assessed Localized Edema Scarring -Moisture (Marie-wound Skin Appearance Assessed ) -Color (Marie-wound Skin Appearance) Assessed Hemosiderin Staining -Temperature (Marie-wound Skin No Abnormality Appearance) (Pt Warm) -Ulcer Cleansing Rinsed/ Irrigated with Saline -Foul Odor after Cleansing No -Anesthetic Used 4% Lidocaine Solution 5% Lidocaine Gel [Edema Assessment] -Lower Limb Edema Present Yes -Left Calf (cm) 45.2 -Left Ankle (cm) 31.1 WC - Nurse 2 - General Ulcer CM Notes Start: 12/09/17 15:35 Freq: Status: Active Protocol: Activity Type Activity Date Activity User E-Sign Co-Sign Detail Recorded Client Recorded Date Recorded By Document 12/16/17 16:02 TM [id number] 12/16/17 16:23 TM 12/16/17 16:02 Wound Center Nurse 2 [Procedure/Treatment] #9 Left Medial-Superior Calf -Time 16:19 -Correct Patient Yes -Correct Side, Site, Position Yes -Correct Procedure Yes -Procedure Performed Yes -Type of Procedure Debridement -Clinical Debridement Subcutaneous -Post Debridement Size (cm) - Length 2.0 -Post Debridement Size (cm) - Width 2.5 -Post Debridement Size (cm) - Depth 0.1 -Total Square Cm 5.00 -Ulcer Cleansing Rinsed/ Irrigated with Saline -Foul Odor after Cleansing No -Bioengineered Tissue Yes -Type of bioengineered Tissue EPIFIX -Expiration Date 10/10/22 -Product Lot Number [id number] -Percent Used 33 -Saline Lot Number [id number] -Topical Lidocaine (%) 5 -Bleeding Controlled with Pressure -Treatment Response Procedure Tolerated Well #7- LT INFERIOR CALF CLUSTER -Time 16:20 -Correct Patient Yes -Correct Side, Site, Position Yes -Correct Procedure Yes -Procedure Performed Yes -Type of Procedure Debridement -Clinical Debridement Subcutaneous -Post Debridement Size (cm) - Length 2.0 -Post Debridement Size (cm) - Width 2.4 -Post Debridement Size (cm) - Depth 0.2 -Total Square Cm 4.80 -Wound/Ulcer Outcome Not Healed -Ulcer Cleansing Rinsed/ Irrigated with Saline -Foul Odor after Cleansing No -Bioengineered Tissue Yes -Type of bioengineered Tissue EPIFIX -Expiration Date 10/10/22 -Product Lot Number [id number] -Percent Used 33 -Saline Lot Number [id number] -Topical Lidocaine (%) 5 -Bleeding Controlled with Pressure -Treatment Response Procedure Tolerated Well #8 Left lateral LE -Time 16:21 -Correct Patient Yes -Correct Side, Site, Position Yes -Correct Procedure Yes -Procedure Performed Yes -Type of Procedure Debridement -Clinical Debridement Subcutaneous -Post Debridement Size (cm) - Length 0.9 -Post Debridement Size (cm) - Width 1.0 -Post Debridement Size (cm) - Depth 0.1 -Total Square Cm 0.90 -Wound/Ulcer Outcome Not Healed -Ulcer Cleansing Rinsed/ Irrigated with Saline -Foul Odor after Cleansing No -Bioengineered Tissue Yes -Type of bioengineered Tissue EPIFIX -Expiration Date 10/10/22 -Product Lot Number [id number] -Percent Used 33 -Saline Lot Number [id number] -Topical Lidocaine (%) 5 -Bleeding Controlled with Pressure -Treatment Response Procedure Tolerated Well [See Physician Procedure note for Specifics] Pain Scale: 0-10 Numeric [Pain] -Is Patient Pain Free? Yes Debridement Note Post-Debridement Measurements/Treatment WC - Nurse 2 - General Ulcer CM Notes Start: 12/09/17 15:35 Freq: Status: Active Protocol: Activity Type Activity Date Activity User E-Sign Co-Sign Detail Recorded Client Recorded Date Recorded By Document 12/09/17 16:10 TM [id number] 12/09/17 16:21 TM Document 12/16/17 16:02 TM [id number] 12/16/17 16:23 TM 12/09/17 12/16/17 16:10 16:02 Wound Center Nurse 2 #9 Left Medial-Superior Calf -Time 16:12 16:19 -Correct Patient Yes Yes -Correct Side, Site, Position Yes Yes -Correct Procedure Yes Yes -Procedure Performed Yes Yes -Type of Procedure Debridement Debridement -Clinical Debridement Subcutaneous Subcutaneous -Post Debridement Size (cm) - Length 1.8 2.0 -Post Debridement Size (cm) - Width 2.3 2.5 -Post Debridement Size (cm) - Depth 0.1 0.1 -Total Square Cm 4.14 5.00 -Wound/Ulcer Outcome Not Healed -Ulcer Cleansing Rinsed/ Rinsed/ Irrigated with Irrigated with Saline Saline -Foul Odor after Cleansing No No -Bioengineered Tissue No Yes -Type of bioengineered Tissue EPIFIX -Expiration Date 10/10/22 -Product Lot Number [id number] -Percent Used 33 -Saline Lot Number [id number] -Topical Lidocaine (%) 4 5 -Bleeding Controlled with Pressure Pressure -Treatment Response Procedure Procedure Tolerated Well Tolerated Well #7- LT INFERIOR CALF CLUSTER -Time 16:12 16:20 -Correct Patient Yes Yes -Correct Side, Site, Position Yes Yes -Correct Procedure Yes Yes -Procedure Performed Yes Yes -Type of Procedure Debridement Debridement -Clinical Debridement Subcutaneous Subcutaneous -Post Debridement Size (cm) - Length 2.1 2.0 -Post Debridement Size (cm) - Width 2.5 2.4 -Post Debridement Size (cm) - Depth 0.1 0.2 -Total Square Cm 5.25 4.80 -Wound/Ulcer Outcome Not Healed Not Healed -Ulcer Cleansing Rinsed/ Rinsed/ Irrigated with Irrigated with Saline Saline -Foul Odor after Cleansing No No -Bioengineered Tissue No Yes -Type of bioengineered Tissue EPIFIX -Expiration Date 10/10/22 -Product Lot Number [id number] -Percent Used 33 -Saline Lot Number [id number] -Topical Lidocaine (%) 4 5 -Bleeding Controlled with Pressure Pressure -Treatment Response Procedure Procedure Tolerated Well Tolerated Well #8 Left lateral LE -Time 16:12 16:21 -Correct Patient Yes Yes -Correct Side, Site, Position Yes Yes -Correct Procedure Yes Yes -Procedure Performed Yes Yes -Type of Procedure Debridement Debridement -Clinical Debridement Subcutaneous Subcutaneous -Post Debridement Size (cm) - Length 1.2 0.9 -Post Debridement Size (cm) - Width 1.2 1.0 -Post Debridement Size (cm) - Depth 0.1 0.1 -Total Square Cm 1.44 0.90 -Wound/Ulcer Outcome Not Healed Not Healed -Ulcer Cleansing Rinsed/ Rinsed/ Irrigated with Irrigated with Saline Saline -Foul Odor after Cleansing No No -Bioengineered Tissue No Yes -Type of bioengineered Tissue EPIFIX -Expiration Date 10/10/22 -Product Lot Number [id number] -Percent Used 33 -Saline Lot Number [id number] -Topical Lidocaine (%) 4 5 -Bleeding Controlled with Pressure Pressure -Treatment Response Procedure Procedure Tolerated Well Tolerated Well Pain Scale: 0-10 Numeric Is Patient Pain Free? Yes Yes Assessment/Plan Active Problems History of CVA (cerebrovascular accident) (Chronic) History of DVT (deep vein thrombosis) (Chronic) Venous ulcer of left lower extremity with varicose veins (Chronic) Lymphedema (Chronic) Assessment: Venous ulcers of lower extremities bilaterally. Lymphedema Plan: Mauricio's wounds/ulcers were evaluated and debrided today. He continues to have pain in his legs from his chronic pain syndrome. Epifix was applied to his wounds today and seemed to be well-tolerated. He was advised that he can change his outer dressings as needed but to leave the wound veil in place with steristrips and avoid getting the dressings wet. Will have him continue to use tramadol for pain relief. Will continue to treat his edema with tubigrips and have him continue to try and use his lymphedema pumps as much as possible. Encourage increased protein intake for improved healing. Follow-up in 2 weeks.
--- NOTE | 2017-12-16 17:26 | PN.PCM_ITS ---
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 He has been washing his legs and applying silver ointment and gauze daily. He also developed skin tears from tape in the last week on his left [place]ork and left superior calf. He saw his primary care physician and they did wound cultures and dressed his wounds with silvercell and referred him to the wound center for continued treatment. He has chronic edema of his lower extremities the left greater than the right status post stroke. He has compression stockings and lymphedema pumps. He does not wear the compression stockings all of the time due to causing pain in his left foot. He has not been as compliant with his lymphedema pumps due to pain/pressure that he gets in his left side during treatments but he has done it several times this week since seeing his PCP but has done the treatments lying in bed which has seemed to help a little. His last vascular studies were in 2014 when he was seen here for treatment of similar ulcers. His current ulcer is in the same spot as one of his previous ulcers. Progress of Wound: Mauricio is here today for follow up of venous ulcers and nonhealing wounds of his left lower leg. The skin tear has improved and his venous ulcer is slightly improved. He used Aquacel Ag once this week and honey and collagen hydrogel another day. He has not been compliant with compression pumps due to pain. He did tolerate the tubigrip compression but has been having a hard time with that as well due to increased pain in his left leg as well. He started taking a horse chestnut supplement which seems to have greatly improved his edema. Denies fever or chills or increased drainage or increased pain. - Physical Exam Vital Signs Temp Pulse Resp BP 97.2 F L 82 24 H 134/79 H 12/09/17 15:35 12/09/17 15:35 12/09/17 15:35 12/09/17 15:35 Wound Measurements and Assessment WC - Nurse 1 - General Ulcer Measurement Start: 12/09/17 15:35 Freq: Status: Active Protocol: Activity Type Activity Date Activity User E-Sign Co-Sign Detail Recorded Client Recorded Date Recorded By Document 12/16/17 15:48 DV [id number] 12/16/17 15:55 DV 12/16/17 15:48 Wound Center Nurse 1 [Ulcer Assessment] #9 Left Medial-Superior Calf -Combined with other wound No -Current Size (cm) - Length 1.9 -Current Size (cm) - Width 2.7 -Current Size (cm) - Depth 0.1 -Total Square Cm 5.13 -Photo Taken No -Epithelialization Small 1-33% -Tunneling No -Undermining/Tunneling No -Circular Undermining No -Classification - Thickness Full Thickness without Exposed Support Structure -Exudate Amt Small (1-33%) -Exudate Type Serosanguineous -Wound Margin Distinct, Outline Attached -Granulation Amt Small (1-33%) -Granulation Quality [employer] -Slough/Fibrin Yes -Necrosis Amt Medium (34-66%) -Necrotic Tissue Type Adherent Slough -Structure Exposed None/Limited to Skin Breakdown -Texture (Marie-wound Skin Appearance) Assessed Localized Edema Scarring -Moisture (Marie-wound Skin Appearance No Abnormality ) Assessed -Color (Marie-wound Skin Appearance) Assessed Hemosiderin Staining -Temperature (Marie-wound Skin No Abnormality Appearance) (Pt Warm) -Tenderness on Palpation (Marie-wound Yes Skin Appearance) -Ulcer Cleansing Rinsed/ Irrigated with Saline -Foul Odor after Cleansing No -Anesthetic Used 4% Lidocaine Solution 5% Lidocaine Gel #7- LT INFERIOR CALF CLUSTER -Combined with other wound No -Current Size (cm) - Length 1.8 -Current Size (cm) - Width 2.2 -Current Size (cm) - Depth 0.1 -Total Square Cm 3.96 -Photo Taken No -Epithelialization Small 1-33% -Tunneling No -Undermining/Tunneling No -Circular Undermining No -Classification - Thickness Full Thickness without Exposed Support Structure -Exudate Amt Small (1-33%) -Exudate Type Serosanguineous -Wound Margin Distinct, Outline Attached -Granulation Amt Small (1-33%) -Granulation Quality Pale -Slough/Fibrin Yes -Necrosis Amt Medium (34-66%) -Necrotic Tissue Type Adherent Slough -Structure Exposed None/Limited to Skin Breakdown -Texture (Marie-wound Skin Appearance) Assessed Localized Edema Scarring -Moisture (Marie-wound Skin Appearance Assessed ) Weeping -Color (Marie-wound Skin Appearance) Assessed Hemosiderin Staining -Temperature (Marie-wound Skin No Abnormality Appearance) (Pt Warm) -Ulcer Cleansing Rinsed/ Irrigated with Saline -Foul Odor after Cleansing Yes -Anesthetic Used 4% Lidocaine Solution 5% Lidocaine Gel #8 Left lateral LE -Combined with other wound No -Current Size (cm) - Length 0.9 -Current Size (cm) - Width 1.0 -Current Size (cm) - Depth 0.1 -Total Square Cm 0.90 -Photo Taken No -Epithelialization None Present -Tunneling No -Undermining/Tunneling No -Circular Undermining No -Classification - Thickness Full Thickness without Exposed Support Structure -Exudate Amt None Present (0 %) -Wound Margin Flat & Intact -Granulation Amt Small (1-33%) -Granulation Quality [employer] -Slough/Fibrin Yes -Necrosis Amt Large (67-100%) -Necrotic Tissue Type Adherent Slough -Structure Exposed None/Limited to Skin Breakdown -Texture (Marie-wound Skin Appearance) Assessed Localized Edema Scarring -Moisture (Marie-wound Skin Appearance Assessed ) -Color (Marie-wound Skin Appearance) Assessed Hemosiderin Staining -Temperature (Marie-wound Skin No Abnormality Appearance) (Pt Warm) -Ulcer Cleansing Rinsed/ Irrigated with Saline -Foul Odor after Cleansing No -Anesthetic Used 4% Lidocaine Solution 5% Lidocaine Gel [Edema Assessment] -Lower Limb Edema Present Yes -Left Calf (cm) 45.2 -Left Ankle (cm) 31.1 WC - Nurse 2 - General Ulcer CM Notes Start: 12/09/17 15:35 Freq: Status: Active Protocol: Activity Type Activity Date Activity User E-Sign Co-Sign Detail Recorded Client Recorded Date Recorded By Document 12/16/17 16:02 TM [id number] 12/16/17 16:23 TM 12/16/17 16:02 Wound Center Nurse 2 [Procedure/Treatment] #9 Left Medial-Superior Calf -Time 16:19 -Correct Patient Yes -Correct Side, Site, Position Yes -Correct Procedure Yes -Procedure Performed Yes -Type of Procedure Debridement -Clinical Debridement Subcutaneous -Post Debridement Size (cm) - Length 2.0 -Post Debridement Size (cm) - Width 2.5 -Post Debridement Size (cm) - Depth 0.1 -Total Square Cm 5.00 -Ulcer Cleansing Rinsed/ Irrigated with Saline -Foul Odor after Cleansing No -Bioengineered Tissue Yes -Type of bioengineered Tissue EPIFIX -Expiration Date 10/10/22 -Product Lot Number [id number] -Percent Used 33 -Saline Lot Number [id number] -Topical Lidocaine (%) 5 -Bleeding Controlled with Pressure -Treatment Response Procedure Tolerated Well #7- LT INFERIOR CALF CLUSTER -Time 16:20 -Correct Patient Yes -Correct Side, Site, Position Yes -Correct Procedure Yes -Procedure Performed Yes -Type of Procedure Debridement -Clinical Debridement Subcutaneous -Post Debridement Size (cm) - Length 2.0 -Post Debridement Size (cm) - Width 2.4 -Post Debridement Size (cm) - Depth 0.2 -Total Square Cm 4.80 -Wound/Ulcer Outcome Not Healed -Ulcer Cleansing Rinsed/ Irrigated with Saline -Foul Odor after Cleansing No -Bioengineered Tissue Yes -Type of bioengineered Tissue EPIFIX -Expiration Date 10/10/22 -Product Lot Number [id number] -Percent Used 33 -Saline Lot Number [id number] -Topical Lidocaine (%) 5 -Bleeding Controlled with Pressure -Treatment Response Procedure Tolerated Well #8 Left lateral LE -Time 16:21 -Correct Patient Yes -Correct Side, Site, Position Yes -Correct Procedure Yes -Procedure Performed Yes -Type of Procedure Debridement -Clinical Debridement Subcutaneous -Post Debridement Size (cm) - Length 0.9 -Post Debridement Size (cm) - Width 1.0 -Post Debridement Size (cm) - Depth 0.1 -Total Square Cm 0.90 -Wound/Ulcer Outcome Not Healed -Ulcer Cleansing Rinsed/ Irrigated with Saline -Foul Odor after Cleansing No -Bioengineered Tissue Yes -Type of bioengineered Tissue EPIFIX -Expiration Date 10/10/22 -Product Lot Number [id number] -Percent Used 33 -Saline Lot Number [id number] -Topical Lidocaine (%) 5 -Bleeding Controlled with Pressure -Treatment Response Procedure Tolerated Well [See Physician Procedure note for Specifics] Pain Scale: 0-10 Numeric [Pain] -Is Patient Pain Free? Yes Debridement Note Post-Debridement Measurements/Treatment WC - Nurse 2 - General Ulcer CM Notes Start: 12/09/17 15:35 Freq: Status: Active Protocol: Activity Type Activity Date Activity User E-Sign Co-Sign Detail Recorded Client Recorded Date Recorded By Document 12/09/17 16:10 TM [id number] 12/09/17 16:21 TM Document 12/16/17 16:02 TM [id number] 12/16/17 16:23 TM 12/09/17 12/16/17 16:10 16:02 Wound Center Nurse 2 #9 Left Medial-Superior Calf -Time 16:12 16:19 -Correct Patient Yes Yes -Correct Side, Site, Position Yes Yes -Correct Procedure Yes Yes -Procedure Performed Yes Yes -Type of Procedure Debridement Debridement -Clinical Debridement Subcutaneous Subcutaneous -Post Debridement Size (cm) - Length 1.8 2.0 -Post Debridement Size (cm) - Width 2.3 2.5 -Post Debridement Size (cm) - Depth 0.1 0.1 -Total Square Cm 4.14 5.00 -Wound/Ulcer Outcome Not Healed -Ulcer Cleansing Rinsed/ Rinsed/ Irrigated with Irrigated with Saline Saline -Foul Odor after Cleansing No No -Bioengineered Tissue No Yes -Type of bioengineered Tissue EPIFIX -Expiration Date 10/10/22 -Product Lot Number [id number] -Percent Used 33 -Saline Lot Number [id number] -Topical Lidocaine (%) 4 5 -Bleeding Controlled with Pressure Pressure -Treatment Response Procedure Procedure Tolerated Well Tolerated Well #7- LT INFERIOR CALF CLUSTER -Time 16:12 16:20 -Correct Patient Yes Yes -Correct Side, Site, Position Yes Yes -Correct Procedure Yes Yes -Procedure Performed Yes Yes -Type of Procedure Debridement Debridement -Clinical Debridement Subcutaneous Subcutaneous -Post Debridement Size (cm) - Length 2.1 2.0 -Post Debridement Size (cm) - Width 2.5 2.4 -Post Debridement Size (cm) - Depth 0.1 0.2 -Total Square Cm 5.25 4.80 -Wound/Ulcer Outcome Not Healed Not Healed -Ulcer Cleansing Rinsed/ Rinsed/ Irrigated with Irrigated with Saline Saline -Foul Odor after Cleansing No No -Bioengineered Tissue No Yes -Type of bioengineered Tissue EPIFIX -Expiration Date 10/10/22 -Product Lot Number [id number] -Percent Used 33 -Saline Lot Number [id number] -Topical Lidocaine (%) 4 5 -Bleeding Controlled with Pressure Pressure -Treatment Response Procedure Procedure Tolerated Well Tolerated Well #8 Left lateral LE -Time 16:12 16:21 -Correct Patient Yes Yes -Correct Side, Site, Position Yes Yes -Correct Procedure Yes Yes -Procedure Performed Yes Yes -Type of Procedure Debridement Debridement -Clinical Debridement Subcutaneous Subcutaneous -Post Debridement Size (cm) - Length 1.2 0.9 -Post Debridement Size (cm) - Width 1.2 1.0 -Post Debridement Size (cm) - Depth 0.1 0.1 -Total Square Cm 1.44 0.90 -Wound/Ulcer Outcome Not Healed Not Healed -Ulcer Cleansing Rinsed/ Rinsed/ Irrigated with Irrigated with Saline Saline -Foul Odor after Cleansing No No -Bioengineered Tissue No Yes -Type of bioengineered Tissue EPIFIX -Expiration Date 10/10/22 -Product Lot Number [id number] -Percent Used 33 -Saline Lot Number [id number] -Topical Lidocaine (%) 4 5 -Bleeding Controlled with Pressure Pressure -Treatment Response Procedure Procedure Tolerated Well Tolerated Well Pain Scale: 0-10 Numeric Is Patient Pain Free? Yes Yes Assessment/Plan Active Problems History of CVA (cerebrovascular accident) (Chronic) History of DVT (deep vein thrombosis) (Chronic) Venous ulcer of left lower extremity with varicose veins (Chronic) Lymphedema (Chronic) Assessment: Venous ulcers of lower extremities bilaterally. Lymphedema Plan: Mauricio's wounds/ulcers were evaluated and debrided today. He continues to have pain in his legs from his chronic pain syndrome. Epifix was applied to his wounds today and seemed to be well-tolerated. He was advised that he can change his outer dressings as needed but to leave the wound veil in place with steristrips and avoid getting the dressings wet. Will have him continue to use tramadol for pain relief. Will continue to treat his edema with tubigrips and have him continue to try and use his lymphedema pumps as much as possible. Encourage increased protein intake for improved healing. Follow-up in 2 weeks.
[2017-12-30 13:41] VITALS: RESP 16; TEMP 36.4; BMI 43.5
--- NOTE | 2017-12-30 16:09 | PCM.WC.PN ---
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 He has been washing his legs and applying silver ointment and gauze daily. He also developed skin tears from tape in the last week on his left [place] and left superior calf. He saw his primary care physician and they did wound cultures and dressed his wounds with silvercell and referred him to the wound center for continued treatment. He has chronic edema of his lower extremities the left greater than the right status post stroke. He has compression stockings and lymphedema pumps. He does not wear the compression stockings all of the time due to causing pain in his left foot. He has not been as compliant with his lymphedema pumps due to pain/pressure that he gets in his left side during treatments but he has done it several times this week since seeing his PCP but has done the treatments lying in bed which has seemed to help a little. His last vascular studies were in 2014 when he was seen here for treatment of similar ulcers. His current ulcer is in the same spot as one of his previous ulcers. Progress of Wound: Mauricio is here today for follow up of venous ulcers and nonhealing wounds of his left lower leg. He tolerated the Epifix but unfortunately his wounds became larger. He has not been compliant with compression pumps due to pain but has been starting to wear a compression stocking. He started taking a horse chestnut supplement which seems to have greatly improved his edema. Denies fever or chills or increased drainage or increased pain. - Physical Exam Vital Signs Temp Pulse Resp BP 97.5 F L 82 16 134/79 H 12/30/17 13:41 12/09/17 15:35 12/30/17 13:41 12/09/17 15:35 General: Alert, Oriented x3, Cooperative, No apparent distress HEENT: Atraumatic, Normocephalic Oral: Moist Mucosa Abdomen: Obese Extremities: Edema Skin: Ulcer/ Wound Wound Measurements and Assessment WC - Nurse 1 - General Ulcer Measurement Start: 12/09/17 15:35 Freq: Status: Active Protocol: Activity Type Activity Date Activity User E-Sign Co-Sign Detail Recorded Client Recorded Date Recorded By Document 12/30/17 13:41 [facility] [id number] 12/30/17 14:03 [facility] 12/30/17 13:41 Wound Center Nurse 1 [Ulcer Assessment] #9 Left Medial-Superior Calf -Combined with other wound No -Current Size (cm) - Length 1.9 -Current Size (cm) - Width 2.5 -Current Size (cm) - Depth 0.1 -Total Square Cm 4.75 -Date of Last Picture (Recall this 12/30/17 field) -Photo Taken Yes -Epithelialization Small 1-33% -Tunneling No -Undermining/Tunneling No -Exudate Amt Small (1-33%) -Exudate Type Serosanguineous -Wound Margin Distinct, Outline Attached -Granulation Amt Medium (34-66%) -Granulation Quality Red -Slough/Fibrin Yes -Necrosis Amt Medium (34-66%) -Necrotic Tissue Type Adherent Slough -Structure Exposed None/Limited to Skin Breakdown -Texture (Marie-wound Skin Appearance) Scarring -Moisture (Marie-wound Skin Appearance Dry/Scaly ) -Color (Marie-wound Skin Appearance) Hemosiderin Staining -Temperature (Marie-wound Skin No Abnormality Appearance) (Pt Warm) -Tenderness on Palpation (Marie-wound No Skin Appearance) -Ulcer Cleansing Wound Cleanser -Foul Odor after Cleansing No -Anesthetic Used 4% Lidocaine Solution 5% Lidocaine Gel #7- LT INFERIOR CALF CLUSTER -Combined with other wound No -Current Size (cm) - Length 1.7 -Current Size (cm) - Width 2.1 -Current Size (cm) - Depth 0.1 -Total Square Cm 3.57 -Date of Last Picture (Recall this 12/30/17 field) -Photo Taken Yes -Epithelialization None Present -Tunneling No -Undermining/Tunneling No -Exudate Amt Small (1-33%) -Exudate Type Serosanguineous -Wound Margin Distinct, Outline Attached -Granulation Amt Large (67-100%) -Granulation Quality Red -Slough/Fibrin Yes -Necrosis Amt Small (1-33%) -Necrotic Tissue Type Adherent Slough -Structure Exposed None/Limited to Skin Breakdown -Texture (Marie-wound Skin Appearance) Scarring -Moisture (Marie-wound Skin Appearance Dry/Scaly ) -Color (Marie-wound Skin Appearance) Hemosiderin Staining -Temperature (Marie-wound Skin No Abnormality Appearance) (Pt Warm) -Tenderness on Palpation (Marie-wound No Skin Appearance) -Ulcer Cleansing Rinsed/ Irrigated with Saline -Foul Odor after Cleansing No -Anesthetic Used 4% Lidocaine Solution 5% Lidocaine Gel #8 Left lateral LE -Combined with other wound No -Current Size (cm) - Length 1 -Current Size (cm) - Width 1 -Current Size (cm) - Depth 0.1 -Total Square Cm 1 -Date of Last Picture (Recall this 12/30/17 field) -Photo Taken Yes -Epithelialization None Present -Tunneling No -Undermining/Tunneling No -Exudate Amt Small (1-33%) -Exudate Type Serosanguineous -Wound Margin Distinct, Outline Attached -Granulation Amt Large (67-100%) -Granulation Quality Red -Slough/Fibrin No -Necrosis Amt None Present (0 %) -Structure Exposed None/Limited to Skin Breakdown -Texture (Marie-wound Skin Appearance) Scarring -Moisture (Marie-wound Skin Appearance Dry/Scaly ) -Color (Marie-wound Skin Appearance) Hemosiderin Staining -Temperature (Marie-wound Skin No Abnormality Appearance) (Pt Warm) -Tenderness on Palpation (Marie-wound No Skin Appearance) -Ulcer Cleansing Rinsed/ Irrigated with Saline -Foul Odor after Cleansing No -Anesthetic Used 4% Lidocaine Solution 5% Lidocaine Gel [Edema Assessment] -Lower Limb Edema Present Yes -Left Calf (cm) 41.2 -Left Ankle (cm) 30.9 WC - Nurse 2 - General Ulcer CM Notes Start: 12/09/17 15:35 Freq: Status: Active Protocol: Activity Type Activity Date Activity User E-Sign Co-Sign Detail Recorded Client Recorded Date Recorded By Document 12/30/17 14:51 DV [id number] 12/30/17 14:59 DV 12/30/17 14:51 Wound Center Nurse 2 [Procedure/Treatment] #9 Left Medial-Superior Calf -Time 14:53 -Correct Patient Yes -Correct Side, Site, Position Yes -Correct Procedure Yes -Procedure Performed Yes -Type of Procedure Debridement -Clinical Debridement Subcutaneous -Post Debridement Size (cm) - Length 2.0 -Post Debridement Size (cm) - Width 2.5 -Post Debridement Size (cm) - Depth 0.1 -Total Square Cm 5.00 -Wound/Ulcer Outcome Not Healed -Ulcer Cleansing Rinsed/ Irrigated with Saline -Foul Odor after Cleansing No -Bioengineered Tissue No -Bleeding Controlled with Pressure -Treatment Response Procedure Tolerated Well #7- LT INFERIOR CALF CLUSTER -Time 14:53 -Correct Patient Yes -Correct Side, Site, Position Yes -Correct Procedure Yes -Procedure Performed Yes -Type of Procedure Debridement -Clinical Debridement Subcutaneous -Post Debridement Size (cm) - Length 1.8 -Post Debridement Size (cm) - Width 2.2 -Post Debridement Size (cm) - Depth 0.2 -Total Square Cm 3.96 -Wound/Ulcer Outcome Not Healed -Ulcer Cleansing Rinsed/ Irrigated with Saline -Foul Odor after Cleansing No -Bioengineered Tissue No -Bleeding Controlled with Pressure -Treatment Response Procedure Tolerated Well #8 Left lateral LE -Time 14:52 -Correct Patient Yes -Correct Side, Site, Position Yes -Correct Procedure Yes -Procedure Performed Yes -Type of Procedure Debridement -Clinical Debridement Subcutaneous -Post Debridement Size (cm) - Length 1.3 -Post Debridement Size (cm) - Width 1.3 -Post Debridement Size (cm) - Depth 0.1 -Total Square Cm 1.69 -Wound/Ulcer Outcome Not Healed -Ulcer Cleansing Rinsed/ Irrigated with Saline -Foul Odor after Cleansing No -Bioengineered Tissue No -Bleeding Controlled with Pressure -Treatment Response Procedure Tolerated Well [See Physician Procedure note for Specifics] Psych/Mental Status: Normal Affect, Appropriate Debridement Note Post-Debridement Measurements/Treatment WC - Nurse 2 - General Ulcer CM Notes Start: 12/09/17 15:35 Freq: Status: Active Protocol: Activity Type Activity Date Activity User E-Sign Co-Sign Detail Recorded Client Recorded Date Recorded By Document 12/09/17 16:10 TM [id number] 12/09/17 16:21 TM Document 12/16/17 16:02 TM [id number] 12/16/17 16:23 TM Document 12/30/17 14:51 DV [id number] 12/30/17 14:59 DV 12/09/17 12/16/17 12/30/17 16:10 16:02 14:51 Wound Center Nurse 2 #9 Left Medial-Superior Calf -Time 16:12 16:19 14:53 -Correct Patient Yes Yes Yes -Correct Side, Site, Position Yes Yes Yes -Correct Procedure Yes Yes Yes -Procedure Performed Yes Yes Yes -Type of Procedure Debridement Debridement Debridement -Clinical Debridement Subcutaneous Subcutaneous Subcutaneous -Post Debridement Size (cm) - Length 1.8 2.0 2.0 -Post Debridement Size (cm) - Width 2.3 2.5 2.5 -Post Debridement Size (cm) - Depth 0.1 0.1 0.1 -Total Square Cm 4.14 5.00 5.00 -Wound/Ulcer Outcome Not Healed Not Healed -Ulcer Cleansing Rinsed/ Rinsed/ Rinsed/ Irrigated with Irrigated with Irrigated with Saline Saline Saline -Foul Odor after Cleansing No No No -Bioengineered Tissue No Yes No -Type of bioengineered Tissue EPIFIX -Expiration Date 10/10/22 -Product Lot Number [id number] -Percent Used 33 -Saline Lot Number [id number] -Topical Lidocaine (%) 4 5 -Bleeding Controlled with Pressure Pressure Pressure -Treatment Response Procedure Procedure Procedure Tolerated Well Tolerated Well Tolerated Well #7- LT INFERIOR CALF CLUSTER -Time 16:12 16:20 14:53 -Correct Patient Yes Yes Yes -Correct Side, Site, Position Yes Yes Yes -Correct Procedure Yes Yes Yes -Procedure Performed Yes Yes Yes -Type of Procedure Debridement Debridement Debridement -Clinical Debridement Subcutaneous Subcutaneous Subcutaneous -Post Debridement Size (cm) - Length 2.1 2.0 1.8 -Post Debridement Size (cm) - Width 2.5 2.4 2.2 -Post Debridement Size (cm) - Depth 0.1 0.2 0.2 -Total Square Cm 5.25 4.80 3.96 -Wound/Ulcer Outcome Not Healed Not Healed Not Healed -Ulcer Cleansing Rinsed/ Rinsed/ Rinsed/ Irrigated with Irrigated with Irrigated with Saline Saline Saline -Foul Odor after Cleansing No No No -Bioengineered Tissue No Yes No -Type of bioengineered Tissue EPIFIX -Expiration Date 10/10/22 -Product Lot Number [id number] -Percent Used 33 -Saline Lot Number [id number] -Topical Lidocaine (%) 4 5 -Bleeding Controlled with Pressure Pressure Pressure -Treatment Response Procedure Procedure Procedure Tolerated Well Tolerated Well Tolerated Well #8 Left lateral LE -Time 16:12 16:21 14:52 -Correct Patient Yes Yes Yes -Correct Side, Site, Position Yes Yes Yes -Correct Procedure Yes Yes Yes -Procedure Performed Yes Yes Yes -Type of Procedure Debridement Debridement Debridement -Clinical Debridement Subcutaneous Subcutaneous Subcutaneous -Post Debridement Size (cm) - Length 1.2 0.9 1.3 -Post Debridement Size (cm) - Width 1.2 1.0 1.3 -Post Debridement Size (cm) - Depth 0.1 0.1 0.1 -Total Square Cm 1.44 0.90 1.69 -Wound/Ulcer Outcome Not Healed Not Healed Not Healed -Ulcer Cleansing Rinsed/ Rinsed/ Rinsed/ Irrigated with Irrigated with Irrigated with Saline Saline Saline -Foul Odor after Cleansing No No No -Bioengineered Tissue No Yes No -Type of bioengineered Tissue EPIFIX -Expiration Date 10/10/22 -Product Lot Number [id number] -Percent Used 33 -Saline Lot Number [id number] -Topical Lidocaine (%) 4 5 -Bleeding Controlled with Pressure Pressure Pressure -Treatment Response Procedure Procedure Procedure Tolerated Well Tolerated Well Tolerated Well Pain Scale: 0-10 Numeric Is Patient Pain Free? Yes Yes Wound debrided: left medial superior calf Laterality: Left Type of Debridement: Excisional debridement Anesthesia Used: 4% Lidocaine Solution Depth: Down to and including healthy tissue, in the subcutaneous layer Percentage of wound debrided: 100 Instrument Used: 5mm curette Tissue Removed: yellow slough, devitalized tissue Severity: Fat Layer Exposed Amount of bleeding with debridement: Mild Bleeding Controlled with: Compression and gauze Patient tolerated procedure well - Additional Wound Wound debrided: left medial inferior calf Laterality: Left Type of Debridement: Excisional debridement Anesthesia Used: 4% Lidocaine Solution, 5% Lidocaine Gel Depth: Down to and including healthy tissue, in the subcutaneous layer Percentage of wound debrided: 100 Instrument Used: 5mm curette Tissue Removed: yellow slough, devitalized tissue Severity: Fat Layer Exposed Amount of bleeding with debridement: Mild Bleeding Controlled with: Compression and gauze Patient tolerated procedure: Patient tolerated procedure well - Additional Wound Wound debrided: left lateral LE Laterality: Left Type of Debridement: Excisional debridement Anesthesia Used: 4% Lidocaine Solution, 5% Lidocaine Gel Depth: Down to and including healthy tissue, in the subcutaneous layer Percentage of wound debrided: 100 Instrument Used: 5mm curette Tissue Removed: yellow slough, devitalized tissue Severity: Fat Layer Exposed Amount of bleeding with debridement: Mild Bleeding Controlled with: Compression and gauze Patient tolerated procedure: Patient tolerated procedure well Assessment/Plan Active Problems History of CVA (cerebrovascular accident) (Chronic) History of DVT (deep vein thrombosis) (Chronic) Venous ulcer of left lower extremity with varicose veins (Chronic) Lymphedema (Chronic) Assessment: Venous ulcers of lower extremities bilaterally. Lymphedema Plan: Mauricio's wounds/ulcers were evaluated and debrided today. He continues to have pain in his legs from his chronic pain syndrome. Epifix did not show any improvement in his wounds. Discussed other options for advanced wound healing for his chronic venous ulcers and will apply for Apligraf application to his insurance to see if that will help with healing his wounds. The goal of his therapy is to heal his wounds. Will have him continue to use tramadol for pain relief. Will have him use Promogran to his medial leg ulcers/wounds and use Aquacel Ag to his lateral leg ulcer. Will continue to treat his edema with tubigrips and have him continue to try and use his lymphedema pumps as much as possible. Encourage increased protein intake for improved healing. Follow-up in 1 week.
--- NOTE | 2017-12-30 16:19 | PN.PCM_ITS ---
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 He has been washing his legs and applying silver ointment and gauze daily. He also developed skin tears from tape in the last week on his left [place]ork and left superior calf. He saw his primary care physician and they did wound cultures and dressed his wounds with silvercell and referred him to the wound center for continued treatment. He has chronic edema of his lower extremities the left greater than the right status post stroke. He has compression stockings and lymphedema pumps. He does not wear the compression stockings all of the time due to causing pain in his left foot. He has not been as compliant with his lymphedema pumps due to pain/pressure that he gets in his left side during treatments but he has done it several times this week since seeing his PCP but has done the treatments lying in bed which has seemed to help a little. His last vascular studies were in 2014 when he was seen here for treatment of similar ulcers. His current ulcer is in the same spot as one of his previous ulcers. Progress of Wound: Mauricio is here today for follow up of venous ulcers and nonhealing wounds of his left lower leg. He tolerated the Epifix but unfortunately his wounds became larger. He has not been compliant with compression pumps due to pain but has been starting to wear a compression stocking. He started taking a horse chestnut supplement which seems to have greatly improved his edema. Denies fever or chills or increased drainage or increased pain. - Physical Exam Vital Signs Temp Pulse Resp BP 97.5 F L 82 16 134/79 H 12/30/17 13:41 12/09/17 15:35 12/30/17 13:41 12/09/17 15:35 General: Alert, Oriented x3, Cooperative, No apparent distress HEENT: Atraumatic, Normocephalic Oral: Moist Mucosa Abdomen: Obese Extremities: Edema Skin: Ulcer/ Wound Wound Measurements and Assessment WC - Nurse 1 - General Ulcer Measurement Start: 12/09/17 15:35 Freq: Status: Active Protocol: Activity Type Activity Date Activity User E-Sign Co-Sign Detail Recorded Client Recorded Date Recorded By Document 12/30/17 13:41 [facility] [id number] 12/30/17 14:03 [facility] 12/30/17 13:41 Wound Center Nurse 1 [Ulcer Assessment] #9 Left Medial-Superior Calf -Combined with other wound No -Current Size (cm) - Length 1.9 -Current Size (cm) - Width 2.5 -Current Size (cm) - Depth 0.1 -Total Square Cm 4.75 -Date of Last Picture (Recall this 12/30/17 field) -Photo Taken Yes -Epithelialization Small 1-33% -Tunneling No -Undermining/Tunneling No -Exudate Amt Small (1-33%) -Exudate Type Serosanguineous -Wound Margin Distinct, Outline Attached -Granulation Amt Medium (34-66%) -Granulation Quality Red -Slough/Fibrin Yes -Necrosis Amt Medium (34-66%) -Necrotic Tissue Type Adherent Slough -Structure Exposed None/Limited to Skin Breakdown -Texture (Marie-wound Skin Appearance) Scarring -Moisture (Marie-wound Skin Appearance Dry/Scaly ) -Color (Marie-wound Skin Appearance) Hemosiderin Staining -Temperature (Marie-wound Skin No Abnormality Appearance) (Pt Warm) -Tenderness on Palpation (Marie-wound No Skin Appearance) -Ulcer Cleansing Wound Cleanser -Foul Odor after Cleansing No -Anesthetic Used 4% Lidocaine Solution 5% Lidocaine Gel #7- LT INFERIOR CALF CLUSTER -Combined with other wound No -Current Size (cm) - Length 1.7 -Current Size (cm) - Width 2.1 -Current Size (cm) - Depth 0.1 -Total Square Cm 3.57 -Date of Last Picture (Recall this 12/30/17 field) -Photo Taken Yes -Epithelialization None Present -Tunneling No -Undermining/Tunneling No -Exudate Amt Small (1-33%) -Exudate Type Serosanguineous -Wound Margin Distinct, Outline Attached -Granulation Amt Large (67-100%) -Granulation Quality Red -Slough/Fibrin Yes -Necrosis Amt Small (1-33%) -Necrotic Tissue Type Adherent Slough -Structure Exposed None/Limited to Skin Breakdown -Texture (Marie-wound Skin Appearance) Scarring -Moisture (Marie-wound Skin Appearance Dry/Scaly ) -Color (Marie-wound Skin Appearance) Hemosiderin Staining -Temperature (Marie-wound Skin No Abnormality Appearance) (Pt Warm) -Tenderness on Palpation (Marie-wound No Skin Appearance) -Ulcer Cleansing Rinsed/ Irrigated with Saline -Foul Odor after Cleansing No -Anesthetic Used 4% Lidocaine Solution 5% Lidocaine Gel #8 Left lateral LE -Combined with other wound No -Current Size (cm) - Length 1 -Current Size (cm) - Width 1 -Current Size (cm) - Depth 0.1 -Total Square Cm 1 -Date of Last Picture (Recall this 12/30/17 field) -Photo Taken Yes -Epithelialization None Present -Tunneling No -Undermining/Tunneling No -Exudate Amt Small (1-33%) -Exudate Type Serosanguineous -Wound Margin Distinct, Outline Attached -Granulation Amt Large (67-100%) -Granulation Quality Red -Slough/Fibrin No -Necrosis Amt None Present (0 %) -Structure Exposed None/Limited to Skin Breakdown -Texture (Marie-wound Skin Appearance) Scarring -Moisture (Marie-wound Skin Appearance Dry/Scaly ) -Color (Marie-wound Skin Appearance) Hemosiderin Staining -Temperature (Marie-wound Skin No Abnormality Appearance) (Pt Warm) -Tenderness on Palpation (Marie-wound No Skin Appearance) -Ulcer Cleansing Rinsed/ Irrigated with Saline -Foul Odor after Cleansing No -Anesthetic Used 4% Lidocaine Solution 5% Lidocaine Gel [Edema Assessment] -Lower Limb Edema Present Yes -Left Calf (cm) 41.2 -Left Ankle (cm) 30.9 WC - Nurse 2 - General Ulcer CM Notes Start: 12/09/17 15:35 Freq: Status: Active Protocol: Activity Type Activity Date Activity User E-Sign Co-Sign Detail Recorded Client Recorded Date Recorded By Document 12/30/17 14:51 DV [id number] 12/30/17 14:59 DV 12/30/17 14:51 Wound Center Nurse 2 [Procedure/Treatment] #9 Left Medial-Superior Calf -Time 14:53 -Correct Patient Yes -Correct Side, Site, Position Yes -Correct Procedure Yes -Procedure Performed Yes -Type of Procedure Debridement -Clinical Debridement Subcutaneous -Post Debridement Size (cm) - Length 2.0 -Post Debridement Size (cm) - Width 2.5 -Post Debridement Size (cm) - Depth 0.1 -Total Square Cm 5.00 -Wound/Ulcer Outcome Not Healed -Ulcer Cleansing Rinsed/ Irrigated with Saline -Foul Odor after Cleansing No -Bioengineered Tissue No -Bleeding Controlled with Pressure -Treatment Response Procedure Tolerated Well #7- LT INFERIOR CALF CLUSTER -Time 14:53 -Correct Patient Yes -Correct Side, Site, Position Yes -Correct Procedure Yes -Procedure Performed Yes -Type of Procedure Debridement -Clinical Debridement Subcutaneous -Post Debridement Size (cm) - Length 1.8 -Post Debridement Size (cm) - Width 2.2 -Post Debridement Size (cm) - Depth 0.2 -Total Square Cm 3.96 -Wound/Ulcer Outcome Not Healed -Ulcer Cleansing Rinsed/ Irrigated with Saline -Foul Odor after Cleansing No -Bioengineered Tissue No -Bleeding Controlled with Pressure -Treatment Response Procedure Tolerated Well #8 Left lateral LE -Time 14:52 -Correct Patient Yes -Correct Side, Site, Position Yes -Correct Procedure Yes -Procedure Performed Yes -Type of Procedure Debridement -Clinical Debridement Subcutaneous -Post Debridement Size (cm) - Length 1.3 -Post Debridement Size (cm) - Width 1.3 -Post Debridement Size (cm) - Depth 0.1 -Total Square Cm 1.69 -Wound/Ulcer Outcome Not Healed -Ulcer Cleansing Rinsed/ Irrigated with Saline -Foul Odor after Cleansing No -Bioengineered Tissue No -Bleeding Controlled with Pressure -Treatment Response Procedure Tolerated Well [See Physician Procedure note for Specifics] Psych/Mental Status: Normal Affect, Appropriate Debridement Note Post-Debridement Measurements/Treatment WC - Nurse 2 - General Ulcer CM Notes Start: 12/09/17 15:35 Freq: Status: Active Protocol: Activity Type Activity Date Activity User E-Sign Co-Sign Detail Recorded Client Recorded Date Recorded By Document 12/09/17 16:10 TM [id number] 12/09/17 16:21 TM Document 12/16/17 16:02 TM [id number] 12/16/17 16:23 TM Document 12/30/17 14:51 DV [id number] 12/30/17 14:59 DV 12/09/17 12/16/17 12/30/17 16:10 16:02 14:51 Wound Center Nurse 2 #9 Left Medial-Superior Calf -Time 16:12 16:19 14:53 -Correct Patient Yes Yes Yes -Correct Side, Site, Position Yes Yes Yes -Correct Procedure Yes Yes Yes -Procedure Performed Yes Yes Yes -Type of Procedure Debridement Debridement Debridement -Clinical Debridement Subcutaneous Subcutaneous Subcutaneous -Post Debridement Size (cm) - Length 1.8 2.0 2.0 -Post Debridement Size (cm) - Width 2.3 2.5 2.5 -Post Debridement Size (cm) - Depth 0.1 0.1 0.1 -Total Square Cm 4.14 5.00 5.00 -Wound/Ulcer Outcome Not Healed Not Healed -Ulcer Cleansing Rinsed/ Rinsed/ Rinsed/ Irrigated with Irrigated with Irrigated with Saline Saline Saline -Foul Odor after Cleansing No No No -Bioengineered Tissue No Yes No -Type of bioengineered Tissue EPIFIX -Expiration Date 10/10/22 -Product Lot Number [id number] -Percent Used 33 -Saline Lot Number [id number] -Topical Lidocaine (%) 4 5 -Bleeding Controlled with Pressure Pressure Pressure -Treatment Response Procedure Procedure Procedure Tolerated Well Tolerated Well Tolerated Well #7- LT INFERIOR CALF CLUSTER -Time 16:12 16:20 14:53 -Correct Patient Yes Yes Yes -Correct Side, Site, Position Yes Yes Yes -Correct Procedure Yes Yes Yes -Procedure Performed Yes Yes Yes -Type of Procedure Debridement Debridement Debridement -Clinical Debridement Subcutaneous Subcutaneous Subcutaneous -Post Debridement Size (cm) - Length 2.1 2.0 1.8 -Post Debridement Size (cm) - Width 2.5 2.4 2.2 -Post Debridement Size (cm) - Depth 0.1 0.2 0.2 -Total Square Cm 5.25 4.80 3.96 -Wound/Ulcer Outcome Not Healed Not Healed Not Healed -Ulcer Cleansing Rinsed/ Rinsed/ Rinsed/ Irrigated with Irrigated with Irrigated with Saline Saline Saline -Foul Odor after Cleansing No No No -Bioengineered Tissue No Yes No -Type of bioengineered Tissue EPIFIX -Expiration Date 10/10/22 -Product Lot Number [id number] -Percent Used 33 -Saline Lot Number [id number] -Topical Lidocaine (%) 4 5 -Bleeding Controlled with Pressure Pressure Pressure -Treatment Response Procedure Procedure Procedure Tolerated Well Tolerated Well Tolerated Well #8 Left lateral LE -Time 16:12 16:21 14:52 -Correct Patient Yes Yes Yes -Correct Side, Site, Position Yes Yes Yes -Correct Procedure Yes Yes Yes -Procedure Performed Yes Yes Yes -Type of Procedure Debridement Debridement Debridement -Clinical Debridement Subcutaneous Subcutaneous Subcutaneous -Post Debridement Size (cm) - Length 1.2 0.9 1.3 -Post Debridement Size (cm) - Width 1.2 1.0 1.3 -Post Debridement Size (cm) - Depth 0.1 0.1 0.1 -Total Square Cm 1.44 0.90 1.69 -Wound/Ulcer Outcome Not Healed Not Healed Not Healed -Ulcer Cleansing Rinsed/ Rinsed/ Rinsed/ Irrigated with Irrigated with Irrigated with Saline Saline Saline -Foul Odor after Cleansing No No No -Bioengineered Tissue No Yes No -Type of bioengineered Tissue EPIFIX -Expiration Date 10/10/22 -Product Lot Number [id number] -Percent Used 33 -Saline Lot Number [id number] -Topical Lidocaine (%) 4 5 -Bleeding Controlled with Pressure Pressure Pressure -Treatment Response Procedure Procedure Procedure Tolerated Well Tolerated Well Tolerated Well Pain Scale: 0-10 Numeric Is Patient Pain Free? Yes Yes Wound debrided: left medial superior calf Laterality: Left Type of Debridement: Excisional debridement Anesthesia Used: 4% Lidocaine Solution Depth: Down to and including healthy tissue, in the subcutaneous layer Percentage of wound debrided: 100 Instrument Used: 5mm curette Tissue Removed: yellow slough, devitalized tissue Severity: Fat Layer Exposed Amount of bleeding with debridement: Mild Bleeding Controlled with: Compression and gauze Patient tolerated procedure well - Additional Wound Wound debrided: left medial inferior calf Laterality: Left Type of Debridement: Excisional debridement Anesthesia Used: 4% Lidocaine Solution, 5% Lidocaine Gel Depth: Down to and including healthy tissue, in the subcutaneous layer Percentage of wound debrided: 100 Instrument Used: 5mm curette Tissue Removed: yellow slough, devitalized tissue Severity: Fat Layer Exposed Amount of bleeding with debridement: Mild Bleeding Controlled with: Compression and gauze Patient tolerated procedure: Patient tolerated procedure well - Additional Wound Wound debrided: left lateral LE Laterality: Left Type of Debridement: Excisional debridement Anesthesia Used: 4% Lidocaine Solution, 5% Lidocaine Gel Depth: Down to and including healthy tissue, in the subcutaneous layer Percentage of wound debrided: 100 Instrument Used: 5mm curette Tissue Removed: yellow slough, devitalized tissue Severity: Fat Layer Exposed Amount of bleeding with debridement: Mild Bleeding Controlled with: Compression and gauze Patient tolerated procedure: Patient tolerated procedure well Assessment/Plan Active Problems History of CVA (cerebrovascular accident) (Chronic) History of DVT (deep vein thrombosis) (Chronic) Venous ulcer of left lower extremity with varicose veins (Chronic) Lymphedema (Chronic) Assessment: Venous ulcers of lower extremities bilaterally. Lymphedema Plan: Maurciio's wounds/ulcers were evaluated and debrided today. He continues to have pain in his legs from his chronic pain syndrome. Epifix did not show any improvement in his wounds. Discussed other options for advanced wound healing for his chronic venous ulcers and will apply for Apligraf application to his insurance to see if that will help with healing his wounds. The goal of his therapy is to heal his wounds. Will have him continue to use tramadol for pain relief. Will have him use Promogran to his medial leg ulcers/wounds and use Aquacel Ag to his lateral leg ulcer. Will continue to treat his edema with tubigrips and have him continue to try and use his lymphedema pumps as much as possible. Encourage increased protein intake for improved healing. Follow-up in 1 week.
[2018-01-06 16:04] VITALS: BP 139/89; PULSE 73; RESP 16; TEMP 35.2; BMI 43.5
--- NOTE | 2018-01-06 21:42 | PCM.WC.PN ---
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 He has been washing his legs and applying silver ointment and gauze daily. He also developed skin tears from tape in the last week on his left [place]ork and left superior calf. He saw his primary care physician and they did wound cultures and dressed his wounds with silvercell and referred him to the wound center for continued treatment. He has chronic edema of his lower extremities the left greater than the right status post stroke. He has compression stockings and lymphedema pumps. He does not wear the compression stockings all of the time due to causing pain in his left foot. He has not been as compliant with his lymphedema pumps due to pain/pressure that he gets in his left side during treatments but he has done it several times this week since seeing his PCP but has done the treatments lying in bed which has seemed to help a little. His last vascular studies were in 2014 when he was seen here for treatment of similar ulcers. His current ulcer is in the same spot as one of his previous ulcers. Progress of Wound: Mauricio is here today for follow up of venous ulcers and nonhealing wounds of his left lower leg. He tolerated the Epifix but unfortunately his wounds became larger. Apligraf was approved by his insurance but was not available for placement today. He has not been compliant with compression pumps due to pain but has been wearing a compression stocking. He started taking a horse chestnut supplement which seems to have greatly improved his edema. Denies fever or chills or increased drainage or increased pain. - Physical Exam Vital Signs Temp Pulse Resp BP 95.3 F L 73 16 139/89 H 01/06/18 16:04 01/06/18 16:04 01/06/18 16:04 01/06/18 16:04 General: Alert, Oriented x3, Cooperative, No apparent distress HEENT: Atraumatic, Normocephalic Oral: Moist Mucosa Abdomen: Obese Extremities: Edema Skin: Ulcer/ Wound Wound Measurements and Assessment WC - Nurse 1 - General Ulcer Measurement Start: 12/09/17 15:35 Freq: Status: Active Protocol: Activity Type Activity Date Activity User E-Sign Co-Sign Detail Recorded Client Recorded Date Recorded By Document 01/06/18 16:04 ELIZABETH [id number] 01/06/18 16:33 JS 01/06/18 16:04 Wound Center Nurse 1 [Ulcer Assessment] #9 Left Medial-Superior Calf -Combined with other wound No -Current Size (cm) - Length 2.0 -Current Size (cm) - Width 2.7 -Current Size (cm) - Depth 0.1 -Total Square Cm 5.40 -Date of Last Picture (Recall this 12/30/17 field) -Photo Taken No -Epithelialization Small 1-33% -Tunneling No -Undermining/Tunneling No -Circular Undermining No -Classification - Thickness Full Thickness without Exposed Support Structure -Exudate Amt Small (1-33%) -Exudate Type Serous -Wound Margin Distinct, Outline Attached -Granulation Amt Medium (34-66%) -Granulation Quality Red -Slough/Fibrin Yes -Necrosis Amt None Present (0 %) -Necrotic Tissue Type Adherent Slough -Structure Exposed None/Limited to Skin Breakdown -Texture (Marie-wound Skin Appearance) No Abnormality -Moisture (Marie-wound Skin Appearance No Abnormality ) -Color (Marie-wound Skin Appearance) Hemosiderin Staining -Temperature (Marie-wound Skin No Abnormality Appearance) (Pt Warm) -Tenderness on Palpation (Marie-wound No Skin Appearance) -Ulcer Cleansing Rinsed/ Irrigated with Saline -Foul Odor after Cleansing No -Anesthetic Used 4% Lidocaine Solution 5% Lidocaine Gel #7- LT INFERIOR CALF CLUSTER -Combined with other wound No -Current Size (cm) - Length 2.0 -Current Size (cm) - Width 2.1 -Current Size (cm) - Depth 0.1 -Total Square Cm 4.20 -Date of Last Picture (Recall this 12/30/17 field) -Photo Taken No -Epithelialization Small 1-33% -Tunneling No -Undermining/Tunneling No -Circular Undermining No -Classification - Thickness Full Thickness without Exposed Support Structure -Exudate Amt Small (1-33%) -Exudate Type Serous -Wound Margin Distinct, Outline Attached -Granulation Amt Small (1-33%) -Granulation Quality Pale Red -Slough/Fibrin Yes -Necrosis Amt None Present (0 %) -Necrotic Tissue Type Adherent Slough -Structure Exposed None/Limited to Skin Breakdown -Texture (Marie-wound Skin Appearance) No Abnormality -Moisture (Marie-wound Skin Appearance No Abnormality ) -Color (Marie-wound Skin Appearance) Hemosiderin Staining -Temperature (Marie-wound Skin No Abnormality Appearance) (Pt Warm) -Tenderness on Palpation (Marie-wound No Skin Appearance) -Ulcer Cleansing Rinsed/ Irrigated with Saline -Foul Odor after Cleansing No -Anesthetic Used 4% Lidocaine Solution 5% Lidocaine Gel #8 Left lateral LE -Combined with other wound No -Current Size (cm) - Length 0.9 -Current Size (cm) - Width 1.2 -Current Size (cm) - Depth 0.1 -Total Square Cm 1.08 -Date of Last Picture (Recall this 12/30/17 field) -Photo Taken No -Epithelialization Small 1-33% -Tunneling No -Undermining/Tunneling No -Circular Undermining No -Classification - Thickness Full Thickness without Exposed Support Structure -Exudate Amt Small (1-33%) -Exudate Type Serous -Wound Margin Distinct, Outline Attached -Granulation Amt Small (1-33%) -Granulation Quality Pale Red -Slough/Fibrin Yes -Necrosis Amt None Present (0 %) -Necrotic Tissue Type Adherent Slough -Structure Exposed None/Limited to Skin Breakdown -Texture (Marie-wound Skin Appearance) No Abnormality -Moisture (Marie-wound Skin Appearance No Abnormality ) -Color (Marie-wound Skin Appearance) Hemosiderin Staining -Temperature (Marie-wound Skin No Abnormality Appearance) (Pt Warm) -Tenderness on Palpation (Marie-wound No Skin Appearance) -Ulcer Cleansing Rinsed/ Irrigated with Saline -Foul Odor after Cleansing No -Anesthetic Used 4% Lidocaine Solution 5% Lidocaine Gel [Edema Assessment] -Lower Limb Edema Present Yes -Left Calf (cm) 46.0 -Left Ankle (cm) 28.5 WC - Nurse 2 - General Ulcer CM Notes Start: 12/09/17 15:35 Freq: Status: Active Protocol: Activity Type Activity Date Activity User E-Sign Co-Sign Detail Recorded Client Recorded Date Recorded By Document 01/06/18 16:53 [id number] 01/06/18 17:01 01/06/18 16:53 Wound Center Nurse 2 [Procedure/Treatment] #9 Left Medial-Superior Calf -Time 16:53 -Correct Patient Yes -Correct Side, Site, Position Yes -Correct Procedure Yes -Procedure Performed Yes -Type of Procedure Debridement -Clinical Debridement Subcutaneous -Post Debridement Size (cm) - Length 2.0 -Post Debridement Size (cm) - Width 2.7 -Post Debridement Size (cm) - Depth 0.1 -Total Square Cm 5.40 -Wound/Ulcer Outcome Not Healed -Ulcer Cleansing Rinsed/ Irrigated with Saline -Foul Odor after Cleansing No -Bioengineered Tissue No -Topical Lidocaine (%) 5 -Bleeding Controlled with Pressure -Treatment Response Procedure Tolerated Well #7- LT INFERIOR CALF CLUSTER -Time 17:00 -Correct Patient Yes -Correct Side, Site, Position Yes -Correct Procedure Yes -Procedure Performed Yes -Type of Procedure Debridement -Clinical Debridement Subcutaneous -Post Debridement Size (cm) - Length 2.0 -Post Debridement Size (cm) - Width 2.1 -Post Debridement Size (cm) - Depth 0.2 -Total Square Cm 4.20 -Wound/Ulcer Outcome Not Healed -Ulcer Cleansing Rinsed/ Irrigated with Saline -Foul Odor after Cleansing No -Bioengineered Tissue No -Topical Lidocaine (%) 5 -Bleeding Controlled with Pressure -Treatment Response Procedure Tolerated Well #8 Left lateral LE -Time 17:00 -Correct Patient Yes -Correct Side, Site, Position Yes -Correct Procedure Yes -Procedure Performed Yes -Type of Procedure Debridement -Clinical Debridement Subcutaneous -Post Debridement Size (cm) - Length 1.0 -Post Debridement Size (cm) - Width 1.2 -Post Debridement Size (cm) - Depth 0.1 -Total Square Cm 1.20 -Wound/Ulcer Outcome Not Healed -Ulcer Cleansing Rinsed/ Irrigated with Saline -Foul Odor after Cleansing No -Bioengineered Tissue No -Topical Lidocaine (%) 5 -Bleeding Controlled with Pressure -Treatment Response Procedure Tolerated Well [See Physician Procedure note for Specifics] Pain Scale: 0-10 Numeric [Pain] -Is Patient Pain Free? Yes Psych/Mental Status: Normal Affect, Appropriate Debridement Note Post-Debridement Measurements/Treatment WC - Nurse 2 - General Ulcer CM Notes Start: 12/09/17 15:35 Freq: Status: Active Protocol: Activity Type Activity Date Activity User E-Sign Co-Sign Detail Recorded Client Recorded Date Recorded By Document 12/09/17 16:10 TM [id number] 12/09/17 16:21 TM Document 12/16/17 16:02 TM [id number] 12/16/17 16:23 TM Document 12/30/17 14:51 DV [id number] 12/30/17 14:59 DV Document 01/06/18 16:53 TM [id number] 01/06/18 17:01 TM 12/09/17 12/16/17 12/30/17 16:10 16:02 14:51 Wound Center Nurse 2 #9 Left Medial-Superior Calf -Time 16:12 16:19 14:53 -Correct Patient Yes Yes Yes -Correct Side, Site, Position Yes Yes Yes -Correct Procedure Yes Yes Yes -Procedure Performed Yes Yes Yes -Type of Procedure Debridement Debridement Debridement -Clinical Debridement Subcutaneous Subcutaneous Subcutaneous -Post Debridement Size (cm) - Length 1.8 2.0 2.0 -Post Debridement Size (cm) - Width 2.3 2.5 2.5 -Post Debridement Size (cm) - Depth 0.1 0.1 0.1 -Total Square Cm 4.14 5.00 5.00 -Wound/Ulcer Outcome Not Healed Not Healed -Ulcer Cleansing Rinsed/ Rinsed/ Rinsed/ Irrigated with Irrigated with Irrigated with Saline Saline Saline -Foul Odor after Cleansing No No No -Bioengineered Tissue No Yes No -Type of bioengineered Tissue EPIFIX -Expiration Date 10/10/22 -Product Lot Number [id number] -Percent Used 33 -Saline Lot Number [id number] -Topical Lidocaine (%) 4 5 -Bleeding Controlled with Pressure Pressure Pressure -Treatment Response Procedure Procedure Procedure Tolerated Well Tolerated Well Tolerated Well #7- LT INFERIOR CALF CLUSTER -Time 16:12 16:20 14:53 -Correct Patient Yes Yes Yes -Correct Side, Site, Position Yes Yes Yes -Correct Procedure Yes Yes Yes -Procedure Performed Yes Yes Yes -Type of Procedure Debridement Debridement Debridement -Clinical Debridement Subcutaneous Subcutaneous Subcutaneous -Post Debridement Size (cm) - Length 2.1 2.0 1.8 -Post Debridement Size (cm) - Width 2.5 2.4 2.2 -Post Debridement Size (cm) - Depth 0.1 0.2 0.2 -Total Square Cm 5.25 4.80 3.96 -Wound/Ulcer Outcome Not Healed Not Healed Not Healed -Ulcer Cleansing Rinsed/ Rinsed/ Rinsed/ Irrigated with Irrigated with Irrigated with Saline Saline Saline -Foul Odor after Cleansing No No No -Bioengineered Tissue No Yes No -Type of bioengineered Tissue EPIFIX -Expiration Date 10/10/22 -Product Lot Number [id number] -Percent Used 33 -Saline Lot Number [id number] -Topical Lidocaine (%) 4 5 -Bleeding Controlled with Pressure Pressure Pressure -Treatment Response Procedure Procedure Procedure Tolerated Well Tolerated Well Tolerated Well #8 Left lateral LE -Time 16:12 16:21 14:52 -Correct Patient Yes Yes Yes -Correct Side, Site, Position Yes Yes Yes -Correct Procedure Yes Yes Yes -Procedure Performed Yes Yes Yes -Type of Procedure Debridement Debridement Debridement -Clinical Debridement Subcutaneous Subcutaneous Subcutaneous -Post Debridement Size (cm) - Length 1.2 0.9 1.3 -Post Debridement Size (cm) - Width 1.2 1.0 1.3 -Post Debridement Size (cm) - Depth 0.1 0.1 0.1 -Total Square Cm 1.44 0.90 1.69 -Wound/Ulcer Outcome Not Healed Not Healed Not Healed -Ulcer Cleansing Rinsed/ Rinsed/ Rinsed/ Irrigated with Irrigated with Irrigated with Saline Saline Saline -Foul Odor after Cleansing No No No -Bioengineered Tissue No Yes No -Type of bioengineered Tissue EPIFIX -Expiration Date 10/10/22 -Product Lot Number [id number] -Percent Used 33 -Saline Lot Number [id number] -Topical Lidocaine (%) 4 5 -Bleeding Controlled with Pressure Pressure Pressure -Treatment Response Procedure Procedure Procedure Tolerated Well Tolerated Well Tolerated Well Pain Scale: 0-10 Numeric Is Patient Pain Free? Yes Yes 01/06/18 16:53 Wound Center Nurse 2 #9 Left Medial-Superior Calf -Time 16:53 -Correct Patient Yes -Correct Side, Site, Position Yes -Correct Procedure Yes -Procedure Performed Yes -Type of Procedure Debridement -Clinical Debridement Subcutaneous -Post Debridement Size (cm) - Length 2.0 -Post Debridement Size (cm) - Width 2.7 -Post Debridement Size (cm) - Depth 0.1 -Total Square Cm 5.40 -Wound/Ulcer Outcome Not Healed -Ulcer Cleansing Rinsed/ Irrigated with Saline -Foul Odor after Cleansing No -Bioengineered Tissue No -Type of bioengineered Tissue -Expiration Date -Product Lot Number -Percent Used -Saline Lot Number -Topical Lidocaine (%) 5 -Bleeding Controlled with Pressure -Treatment Response Procedure Tolerated Well #7- LT INFERIOR CALF CLUSTER -Time 17:00 -Correct Patient Yes -Correct Side, Site, Position Yes -Correct Procedure Yes -Procedure Performed Yes -Type of Procedure Debridement -Clinical Debridement Subcutaneous -Post Debridement Size (cm) - Length 2.0 -Post Debridement Size (cm) - Width 2.1 -Post Debridement Size (cm) - Depth 0.2 -Total Square Cm 4.20 -Wound/Ulcer Outcome Not Healed -Ulcer Cleansing Rinsed/ Irrigated with Saline -Foul Odor after Cleansing No -Bioengineered Tissue No -Type of bioengineered Tissue -Expiration Date -Product Lot Number -Percent Used -Saline Lot Number -Topical Lidocaine (%) 5 -Bleeding Controlled with Pressure -Treatment Response Procedure Tolerated Well #8 Left lateral LE -Time 17:00 -Correct Patient Yes -Correct Side, Site, Position Yes -Correct Procedure Yes -Procedure Performed Yes -Type of Procedure Debridement -Clinical Debridement Subcutaneous -Post Debridement Size (cm) - Length 1.0 -Post Debridement Size (cm) - Width 1.2 -Post Debridement Size (cm) - Depth 0.1 -Total Square Cm 1.20 -Wound/Ulcer Outcome Not Healed -Ulcer Cleansing Rinsed/ Irrigated with Saline -Foul Odor after Cleansing No -Bioengineered Tissue No -Type of bioengineered Tissue -Expiration Date -Product Lot Number -Percent Used -Saline Lot Number -Topical Lidocaine (%) 5 -Bleeding Controlled with Pressure -Treatment Response Procedure Tolerated Well Pain Scale: 0-10 Numeric Is Patient Pain Free? Yes Wound debrided: left medial superior calf Laterality: Left Type of Debridement: Excisional debridement Anesthesia Used: 5% Lidocaine Gel Depth: Down to and including healthy tissue, in the subcutaneous layer Percentage of wound debrided: 100 Instrument Used: 5mm curette Tissue Removed: yellow slough, devitalized tissue Severity: Fat Layer Exposed Amount of bleeding with debridement: Mild Bleeding Controlled with: Compression and gauze Patient tolerated procedure well - Additional Wound Wound debrided: left medial inferior calf cluster Laterality: Left Type of Debridement: Excisional debridement Anesthesia Used: 5% Lidocaine Gel Depth: Down to and including healthy tissue, in the subcutaneous layer Percentage of wound debrided: 100 Instrument Used: 5mm curette Tissue Removed: yellow slough, devitalized tissue Severity: Fat Layer Exposed Amount of bleeding with debridement: Mild Bleeding Controlled with: Compression and gauze Patient tolerated procedure: Patient tolerated procedure well - Additional Wound Wound debrided: left lateral LE Laterality: Left Type of Debridement: Excisional debridement Anesthesia Used: 5% Lidocaine Gel Depth: Down to and including healthy tissue, in the subcutaneous layer Percentage of wound debrided: 100 Instrument Used: 5mm curette Tissue Removed: yellow slough, devitalized tissue Severity: Fat Layer Exposed Amount of bleeding with debridement: Mild Bleeding Controlled with: Compression and gauze Patient tolerated procedure: Patient tolerated procedure well Assessment/Plan Active Problems History of CVA (cerebrovascular accident) (Chronic) History of DVT (deep vein thrombosis) (Chronic) Venous ulcer of left lower extremity with varicose veins (Chronic) Lymphedema (Chronic) Assessment: Venous ulcers of lower extremities bilaterally. Lymphedema Plan: Mauricio's wounds/ulcers were evaluated and debrided today. He continues to have pain in his legs from his chronic pain syndrome. Epifix did not show any improvement in his wounds. His wounds have gotten larger - wound culture done today to evaluate for infection. Apligraf application was approved by his insurance. The goal of his therapy is to heal his wounds. Will have him continue to use tramadol for pain relief. Will have him use Promogran to his medial leg ulcers/wounds. Will continue to treat his edema with tubigrips and have him continue to try and use his lymphedema pumps as much as possible. Encourage increased protein intake for improved healing. Follow-up in 1 week for Apligraf application.
--- NOTE | 2018-01-06 21:51 | PN.PCM_ITS ---
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 He has been washing his legs and applying silver ointment and gauze daily. He also developed skin tears from tape in the last week on his left [place]ork and left superior calf. He saw his primary care physician and they did wound cultures and dressed his wounds with silvercell and referred him to the wound center for continued treatment. He has chronic edema of his lower extremities the left greater than the right status post stroke. He has compression stockings and lymphedema pumps. He does not wear the compression stockings all of the time due to causing pain in his left foot. He has not been as compliant with his lymphedema pumps due to pain/pressure that he gets in his left side during treatments but he has done it several times this week since seeing his PCP but has done the treatments lying in bed which has seemed to help a little. His last vascular studies were in 2014 when he was seen here for treatment of similar ulcers. His current ulcer is in the same spot as one of his previous ulcers. Progress of Wound: Mauricio is here today for follow up of venous ulcers and nonhealing wounds of his left lower leg. He tolerated the Epifix but unfortunately his wounds became larger. Apligraf was approved by his insurance but was not available for placement today. He has not been compliant with compression pumps due to pain but has been wearing a compression stocking. He started taking a horse chestnut supplement which seems to have greatly improved his edema. Denies fever or chills or increased drainage or increased pain. - Physical Exam Vital Signs Temp Pulse Resp BP 95.3 F L 73 16 139/89 H 01/06/18 16:04 01/06/18 16:04 01/06/18 16:04 01/06/18 16:04 General: Alert, Oriented x3, Cooperative, No apparent distress HEENT: Atraumatic, Normocephalic Oral: Moist Mucosa Abdomen: Obese Extremities: Edema Skin: Ulcer/ Wound Wound Measurements and Assessment WC - Nurse 1 - General Ulcer Measurement Start: 12/09/17 15:35 Freq: Status: Active Protocol: Activity Type Activity Date Activity User E-Sign Co-Sign Detail Recorded Client Recorded Date Recorded By Document 01/06/18 16:04 ELIZABETH [id number] 01/06/18 16:33 JS 01/06/18 16:04 Wound Center Nurse 1 [Ulcer Assessment] #9 Left Medial-Superior Calf -Combined with other wound No -Current Size (cm) - Length 2.0 -Current Size (cm) - Width 2.7 -Current Size (cm) - Depth 0.1 -Total Square Cm 5.40 -Date of Last Picture (Recall this 12/30/17 field) -Photo Taken No -Epithelialization Small 1-33% -Tunneling No -Undermining/Tunneling No -Circular Undermining No -Classification - Thickness Full Thickness without Exposed Support Structure -Exudate Amt Small (1-33%) -Exudate Type Serous -Wound Margin Distinct, Outline Attached -Granulation Amt Medium (34-66%) -Granulation Quality Red -Slough/Fibrin Yes -Necrosis Amt None Present (0 %) -Necrotic Tissue Type Adherent Slough -Structure Exposed None/Limited to Skin Breakdown -Texture (Marie-wound Skin Appearance) No Abnormality -Moisture (Marie-wound Skin Appearance No Abnormality ) -Color (Marie-wound Skin Appearance) Hemosiderin Staining -Temperature (Marie-wound Skin No Abnormality Appearance) (Pt Warm) -Tenderness on Palpation (Marie-wound No Skin Appearance) -Ulcer Cleansing Rinsed/ Irrigated with Saline -Foul Odor after Cleansing No -Anesthetic Used 4% Lidocaine Solution 5% Lidocaine Gel #7- LT INFERIOR CALF CLUSTER -Combined with other wound No -Current Size (cm) - Length 2.0 -Current Size (cm) - Width 2.1 -Current Size (cm) - Depth 0.1 -Total Square Cm 4.20 -Date of Last Picture (Recall this 12/30/17 field) -Photo Taken No -Epithelialization Small 1-33% -Tunneling No -Undermining/Tunneling No -Circular Undermining No -Classification - Thickness Full Thickness without Exposed Support Structure -Exudate Amt Small (1-33%) -Exudate Type Serous -Wound Margin Distinct, Outline Attached -Granulation Amt Small (1-33%) -Granulation Quality Pale Red -Slough/Fibrin Yes -Necrosis Amt None Present (0 %) -Necrotic Tissue Type Adherent Slough -Structure Exposed None/Limited to Skin Breakdown -Texture (Marie-wound Skin Appearance) No Abnormality -Moisture (Marie-wound Skin Appearance No Abnormality ) -Color (Marie-wound Skin Appearance) Hemosiderin Staining -Temperature (Marie-wound Skin No Abnormality Appearance) (Pt Warm) -Tenderness on Palpation (Marie-wound No Skin Appearance) -Ulcer Cleansing Rinsed/ Irrigated with Saline -Foul Odor after Cleansing No -Anesthetic Used 4% Lidocaine Solution 5% Lidocaine Gel #8 Left lateral LE -Combined with other wound No -Current Size (cm) - Length 0.9 -Current Size (cm) - Width 1.2 -Current Size (cm) - Depth 0.1 -Total Square Cm 1.08 -Date of Last Picture (Recall this 12/30/17 field) -Photo Taken No -Epithelialization Small 1-33% -Tunneling No -Undermining/Tunneling No -Circular Undermining No -Classification - Thickness Full Thickness without Exposed Support Structure -Exudate Amt Small (1-33%) -Exudate Type Serous -Wound Margin Distinct, Outline Attached -Granulation Amt Small (1-33%) -Granulation Quality Pale Red -Slough/Fibrin Yes -Necrosis Amt None Present (0 %) -Necrotic Tissue Type Adherent Slough -Structure Exposed None/Limited to Skin Breakdown -Texture (Marie-wound Skin Appearance) No Abnormality -Moisture (Marie-wound Skin Appearance No Abnormality ) -Color (Marie-wound Skin Appearance) Hemosiderin Staining -Temperature (Marie-wound Skin No Abnormality Appearance) (Pt Warm) -Tenderness on Palpation (Marie-wound No Skin Appearance) -Ulcer Cleansing Rinsed/ Irrigated with Saline -Foul Odor after Cleansing No -Anesthetic Used 4% Lidocaine Solution 5% Lidocaine Gel [Edema Assessment] -Lower Limb Edema Present Yes -Left Calf (cm) 46.0 -Left Ankle (cm) 28.5 WC - Nurse 2 - General Ulcer CM Notes Start: 12/09/17 15:35 Freq: Status: Active Protocol: Activity Type Activity Date Activity User E-Sign Co-Sign Detail Recorded Client Recorded Date Recorded By Document 01/06/18 16:53 [id number] 01/06/18 17:01 01/06/18 16:53 Wound Center Nurse 2 [Procedure/Treatment] #9 Left Medial-Superior Calf -Time 16:53 -Correct Patient Yes -Correct Side, Site, Position Yes -Correct Procedure Yes -Procedure Performed Yes -Type of Procedure Debridement -Clinical Debridement Subcutaneous -Post Debridement Size (cm) - Length 2.0 -Post Debridement Size (cm) - Width 2.7 -Post Debridement Size (cm) - Depth 0.1 -Total Square Cm 5.40 -Wound/Ulcer Outcome Not Healed -Ulcer Cleansing Rinsed/ Irrigated with Saline -Foul Odor after Cleansing No -Bioengineered Tissue No -Topical Lidocaine (%) 5 -Bleeding Controlled with Pressure -Treatment Response Procedure Tolerated Well #7- LT INFERIOR CALF CLUSTER -Time 17:00 -Correct Patient Yes -Correct Side, Site, Position Yes -Correct Procedure Yes -Procedure Performed Yes -Type of Procedure Debridement -Clinical Debridement Subcutaneous -Post Debridement Size (cm) - Length 2.0 -Post Debridement Size (cm) - Width 2.1 -Post Debridement Size (cm) - Depth 0.2 -Total Square Cm 4.20 -Wound/Ulcer Outcome Not Healed -Ulcer Cleansing Rinsed/ Irrigated with Saline -Foul Odor after Cleansing No -Bioengineered Tissue No -Topical Lidocaine (%) 5 -Bleeding Controlled with Pressure -Treatment Response Procedure Tolerated Well #8 Left lateral LE -Time 17:00 -Correct Patient Yes -Correct Side, Site, Position Yes -Correct Procedure Yes -Procedure Performed Yes -Type of Procedure Debridement -Clinical Debridement Subcutaneous -Post Debridement Size (cm) - Length 1.0 -Post Debridement Size (cm) - Width 1.2 -Post Debridement Size (cm) - Depth 0.1 -Total Square Cm 1.20 -Wound/Ulcer Outcome Not Healed -Ulcer Cleansing Rinsed/ Irrigated with Saline -Foul Odor after Cleansing No -Bioengineered Tissue No -Topical Lidocaine (%) 5 -Bleeding Controlled with Pressure -Treatment Response Procedure Tolerated Well [See Physician Procedure note for Specifics] Pain Scale: 0-10 Numeric [Pain] -Is Patient Pain Free? Yes Psych/Mental Status: Normal Affect, Appropriate Debridement Note Post-Debridement Measurements/Treatment WC - Nurse 2 - General Ulcer CM Notes Start: 12/09/17 15:35 Freq: Status: Active Protocol: Activity Type Activity Date Activity User E-Sign Co-Sign Detail Recorded Client Recorded Date Recorded By Document 12/09/17 16:10 TM [id number] 12/09/17 16:21 TM Document 12/16/17 16:02 TM [id number] 12/16/17 16:23 TM Document 12/30/17 14:51 DV [id number] 12/30/17 14:59 DV Document 01/06/18 16:53 TM [id number] 01/06/18 17:01 TM 12/09/17 12/16/17 12/30/17 16:10 16:02 14:51 Wound Center Nurse 2 #9 Left Medial-Superior Calf -Time 16:12 16:19 14:53 -Correct Patient Yes Yes Yes -Correct Side, Site, Position Yes Yes Yes -Correct Procedure Yes Yes Yes -Procedure Performed Yes Yes Yes -Type of Procedure Debridement Debridement Debridement -Clinical Debridement Subcutaneous Subcutaneous Subcutaneous -Post Debridement Size (cm) - Length 1.8 2.0 2.0 -Post Debridement Size (cm) - Width 2.3 2.5 2.5 -Post Debridement Size (cm) - Depth 0.1 0.1 0.1 -Total Square Cm 4.14 5.00 5.00 -Wound/Ulcer Outcome Not Healed Not Healed -Ulcer Cleansing Rinsed/ Rinsed/ Rinsed/ Irrigated with Irrigated with Irrigated with Saline Saline Saline -Foul Odor after Cleansing No No No -Bioengineered Tissue No Yes No -Type of bioengineered Tissue EPIFIX -Expiration Date 10/10/22 -Product Lot Number [id number] -Percent Used 33 -Saline Lot Number [id number] -Topical Lidocaine (%) 4 5 -Bleeding Controlled with Pressure Pressure Pressure -Treatment Response Procedure Procedure Procedure Tolerated Well Tolerated Well Tolerated Well #7- LT INFERIOR CALF CLUSTER -Time 16:12 16:20 14:53 -Correct Patient Yes Yes Yes -Correct Side, Site, Position Yes Yes Yes -Correct Procedure Yes Yes Yes -Procedure Performed Yes Yes Yes -Type of Procedure Debridement Debridement Debridement -Clinical Debridement Subcutaneous Subcutaneous Subcutaneous -Post Debridement Size (cm) - Length 2.1 2.0 1.8 -Post Debridement Size (cm) - Width 2.5 2.4 2.2 -Post Debridement Size (cm) - Depth 0.1 0.2 0.2 -Total Square Cm 5.25 4.80 3.96 -Wound/Ulcer Outcome Not Healed Not Healed Not Healed -Ulcer Cleansing Rinsed/ Rinsed/ Rinsed/ Irrigated with Irrigated with Irrigated with Saline Saline Saline -Foul Odor after Cleansing No No No -Bioengineered Tissue No Yes No -Type of bioengineered Tissue EPIFIX -Expiration Date 10/10/22 -Product Lot Number [id number] -Percent Used 33 -Saline Lot Number [id number] -Topical Lidocaine (%) 4 5 -Bleeding Controlled with Pressure Pressure Pressure -Treatment Response Procedure Procedure Procedure Tolerated Well Tolerated Well Tolerated Well #8 Left lateral LE -Time 16:12 16:21 14:52 -Correct Patient Yes Yes Yes -Correct Side, Site, Position Yes Yes Yes -Correct Procedure Yes Yes Yes -Procedure Performed Yes Yes Yes -Type of Procedure Debridement Debridement Debridement -Clinical Debridement Subcutaneous Subcutaneous Subcutaneous -Post Debridement Size (cm) - Length 1.2 0.9 1.3 -Post Debridement Size (cm) - Width 1.2 1.0 1.3 -Post Debridement Size (cm) - Depth 0.1 0.1 0.1 -Total Square Cm 1.44 0.90 1.69 -Wound/Ulcer Outcome Not Healed Not Healed Not Healed -Ulcer Cleansing Rinsed/ Rinsed/ Rinsed/ Irrigated with Irrigated with Irrigated with Saline Saline Saline -Foul Odor after Cleansing No No No -Bioengineered Tissue No Yes No -Type of bioengineered Tissue EPIFIX -Expiration Date 10/10/22 -Product Lot Number [id number] -Percent Used 33 -Saline Lot Number [id number] -Topical Lidocaine (%) 4 5 -Bleeding Controlled with Pressure Pressure Pressure -Treatment Response Procedure Procedure Procedure Tolerated Well Tolerated Well Tolerated Well Pain Scale: 0-10 Numeric Is Patient Pain Free? Yes Yes 01/06/18 16:53 Wound Center Nurse 2 #9 Left Medial-Superior Calf -Time 16:53 -Correct Patient Yes -Correct Side, Site, Position Yes -Correct Procedure Yes -Procedure Performed Yes -Type of Procedure Debridement -Clinical Debridement Subcutaneous -Post Debridement Size (cm) - Length 2.0 -Post Debridement Size (cm) - Width 2.7 -Post Debridement Size (cm) - Depth 0.1 -Total Square Cm 5.40 -Wound/Ulcer Outcome Not Healed -Ulcer Cleansing Rinsed/ Irrigated with Saline -Foul Odor after Cleansing No -Bioengineered Tissue No -Type of bioengineered Tissue -Expiration Date -Product Lot Number -Percent Used -Saline Lot Number -Topical Lidocaine (%) 5 -Bleeding Controlled with Pressure -Treatment Response Procedure Tolerated Well #7- LT INFERIOR CALF CLUSTER -Time 17:00 -Correct Patient Yes -Correct Side, Site, Position Yes -Correct Procedure Yes -Procedure Performed Yes -Type of Procedure Debridement -Clinical Debridement Subcutaneous -Post Debridement Size (cm) - Length 2.0 -Post Debridement Size (cm) - Width 2.1 -Post Debridement Size (cm) - Depth 0.2 -Total Square Cm 4.20 -Wound/Ulcer Outcome Not Healed -Ulcer Cleansing Rinsed/ Irrigated with Saline -Foul Odor after Cleansing No -Bioengineered Tissue No -Type of bioengineered Tissue -Expiration Date -Product Lot Number -Percent Used -Saline Lot Number -Topical Lidocaine (%) 5 -Bleeding Controlled with Pressure -Treatment Response Procedure Tolerated Well #8 Left lateral LE -Time 17:00 -Correct Patient Yes -Correct Side, Site, Position Yes -Correct Procedure Yes -Procedure Performed Yes -Type of Procedure Debridement -Clinical Debridement Subcutaneous -Post Debridement Size (cm) - Length 1.0 -Post Debridement Size (cm) - Width 1.2 -Post Debridement Size (cm) - Depth 0.1 -Total Square Cm 1.20 -Wound/Ulcer Outcome Not Healed -Ulcer Cleansing Rinsed/ Irrigated with Saline -Foul Odor after Cleansing No -Bioengineered Tissue No -Type of bioengineered Tissue -Expiration Date -Product Lot Number -Percent Used -Saline Lot Number -Topical Lidocaine (%) 5 -Bleeding Controlled with Pressure -Treatment Response Procedure Tolerated Well Pain Scale: 0-10 Numeric Is Patient Pain Free? Yes Wound debrided: left medial superior calf Laterality: Left Type of Debridement: Excisional debridement Anesthesia Used: 5% Lidocaine Gel Depth: Down to and including healthy tissue, in the subcutaneous layer Percentage of wound debrided: 100 Instrument Used: 5mm curette Tissue Removed: yellow slough, devitalized tissue Severity: Fat Layer Exposed Amount of bleeding with debridement: Mild Bleeding Controlled with: Compression and gauze Patient tolerated procedure well - Additional Wound Wound debrided: left medial inferior calf cluster Laterality: Left Type of Debridement: Excisional debridement Anesthesia Used: 5% Lidocaine Gel Depth: Down to and including healthy tissue, in the subcutaneous layer Percentage of wound debrided: 100 Instrument Used: 5mm curette Tissue Removed: yellow slough, devitalized tissue Severity: Fat Layer Exposed Amount of bleeding with debridement: Mild Bleeding Controlled with: Compression and gauze Patient tolerated procedure: Patient tolerated procedure well - Additional Wound Wound debrided: left lateral LE Laterality: Left Type of Debridement: Excisional debridement Anesthesia Used: 5% Lidocaine Gel Depth: Down to and including healthy tissue, in the subcutaneous layer Percentage of wound debrided: 100 Instrument Used: 5mm curette Tissue Removed: yellow slough, devitalized tissue Severity: Fat Layer Exposed Amount of bleeding with debridement: Mild Bleeding Controlled with: Compression and gauze Patient tolerated procedure: Patient tolerated procedure well Assessment/Plan Active Problems History of CVA (cerebrovascular accident) (Chronic) History of DVT (deep vein thrombosis) (Chronic) Venous ulcer of left lower extremity with varicose veins (Chronic) Lymphedema (Chronic) Assessment: Venous ulcers of lower extremities bilaterally. Lymphedema Plan: Mauricio's wounds/ulcers were evaluated and debrided today. He continues to have pain in his legs from his chronic pain syndrome. Epifix did not show any improvement in his wounds. His wounds have gotten larger - wound culture done today to evaluate for infection. Apligraf application was approved by his insurance. The goal of his therapy is to heal his wounds. Will have him continue to use tramadol for pain relief. Will have him use Promogran to his medial leg ulcers/wounds. Will continue to treat his edema with tubigrips and have him continue to try and use his lymphedema pumps as much as possible. Encourage increased protein intake for improved healing. Follow-up in 1 week for Apligraf application.
== END 2018-01-07 23:59 ==
LOC: WC 15:00
PROVIDERS: Family Provider Family Medicine; PCP Family Medicine; Visit Provider Family Medicine
DX: I83.022 Varicose veins of left lower extremity with ulcer of calf (principal); L97.222 Non-pressure chronic ulcer of left calf with fat layer exposed; Z86.718 Personal history of other venous thrombosis and embolism; Z86.73 Personal history of transient ischemic attack (TIA), and cerebral infarction without residual deficits; I89.0 Lymphedema, not elsewhere classified; R60.0 Localized edema; Z91.19 Patient's noncompliance with other medical treatment and regimen; G89.4 Chronic pain syndrome
CPT/HCPCS: 11042; 15271; 87070; 87075; 87077; 87186; 87205; Q4131

== ENCOUNTER 2018-02-01 16:00 | Outpatient (RCR) | payer OTHER, SELFPAY ==
[2018-01-08 00:38] VITALS: BP 124/74; PULSE 73; RESP 16; TEMP 35.2; BMI 43.5
[2018-01-11 16:18] VITALS: BP 126/83; PULSE 76; RESP 18; TEMP 36.6; BMI 43.5
--- NOTE | 2018-01-11 22:30 | PCM.WC.PN ---
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 He has chronic edema of his lower extremities the left greater than the right status post stroke. He has compression stockings and lymphedema pumps. He has not been as compliant with his lymphedema pumps due to pain/pressure. He reports is a chronic pain syndrome. He denies fever, chill, nausea, vomiting. He is here today for Apligraf application that was ordered by Dr. Garcia. Progress of Wound: Stable - Physical Exam Vital Signs Temp Pulse Resp BP 98 F 76 18 126/83 H 01/11/18 16:18 01/11/18 16:18 01/11/18 16:18 01/11/18 16:18 General: Alert, Oriented x3, Cooperative Extremities: No cyanosis, Capillary Refill Less than 3 Seconds, No Calf Tenderness - Negative Peace and [place] left, Edema - Left lower extremity, Peripheral Pulses Normal Skin: Ulcer/ Wound - No purulence, erythema, streaking, no odor, no infection left. The skin is atrophic and hairless left Wound Measurements and Assessment WC - Nurse 1 - General Ulcer Measurement Start: 01/11/18 16:18 Freq: Status: Active Protocol: Activity Type Activity Date Activity User E-Sign Co-Sign Detail Recorded Client Recorded Date Recorded By Document 01/11/18 16:18 DL [id number] 01/11/18 16:27 DL 01/11/18 16:18 Wound Center Nurse 1 [Ulcer Assessment] #9 Left Medial-Superior Calf -Current Size (cm) - Length 2 -Current Size (cm) - Width 2.6 -Current Size (cm) - Depth 0.1 -Total Square Cm 5.2 -Photo Taken No -Exudate Amt Small (1-33%) -Exudate Type Serosanguineous -Wound Margin Distinct, Outline Attached -Granulation Amt Medium (34-66%) -Granulation Quality Red -Necrosis Amt Medium (34-66%) -Necrotic Tissue Type Adherent Slough -Structure Exposed N/A -Texture (Marie-wound Skin Appearance) Scarring -Moisture (Marie-wound Skin Appearance No Abnormality ) -Color (Marie-wound Skin Appearance) Hemosiderin Staining -Temperature (Marie-wound Skin No Abnormality Appearance) (Pt Warm) -Ulcer Cleansing Wound Cleanser -Foul Odor after Cleansing No -Anesthetic Used 4% Lidocaine Solution #7- LT INFERIOR CALF CLUSTER -Current Size (cm) - Length 1.8 -Current Size (cm) - Width 4.2 -Current Size (cm) - Depth 0.1 -Total Square Cm 7.56 -Photo Taken No -Exudate Amt Small (1-33%) -Exudate Type Serosanguineous -Wound Margin Distinct, Outline Attached -Granulation Amt Medium (34-66%) -Granulation Quality Red -Necrosis Amt Medium (34-66%) -Necrotic Tissue Type Adherent Slough -Structure Exposed N/A -Texture (Marie-wound Skin Appearance) Scarring -Moisture (Marie-wound Skin Appearance No Abnormality ) -Color (Marie-wound Skin Appearance) Hemosiderin Staining -Temperature (Marie-wound Skin No Abnormality Appearance) (Pt Warm) -Ulcer Cleansing Wound Cleanser -Foul Odor after Cleansing No -Anesthetic Used 4% Lidocaine Solution #8 Left lateral LE -Current Size (cm) - Length 0.8 -Current Size (cm) - Width 0.8 -Current Size (cm) - Depth 0.1 -Total Square Cm 0.64 -Photo Taken No -Exudate Amt Small (1-33%) -Exudate Type Serosanguineous -Wound Margin Distinct, Outline Attached -Granulation Amt Medium (34-66%) -Granulation Quality Red -Necrosis Amt Medium (34-66%) -Necrotic Tissue Type Adherent Slough -Structure Exposed N/A -Texture (Marie-wound Skin Appearance) Scarring -Moisture (Marie-wound Skin Appearance No Abnormality ) -Color (Marie-wound Skin Appearance) Hemosiderin Staining -Temperature (Marie-wound Skin No Abnormality Appearance) (Pt Warm) -Ulcer Cleansing Wound Cleanser -Foul Odor after Cleansing No -Anesthetic Used 4% Lidocaine Solution [Edema Assessment] -Left Calf (cm) 43 -Left Ankle (cm) 28.2 WC - Nurse 2 - General Ulcer CM Notes Start: 01/11/18 16:18 Freq: Status: Active Protocol: Activity Type Activity Date Activity User E-Sign Co-Sign Detail Recorded Client Recorded Date Recorded By Document 01/11/18 16:46 [id number] 01/11/18 16:52 KARTHIK 01/11/18 16:46 Wound Center Nurse 2 [Procedure/Treatment] #9 Left Medial-Superior Calf -Time 16:47 -Correct Patient Yes -Correct Side, Site, Position Yes -Correct Procedure Yes -Procedure Performed Yes -Type of Procedure Debridement -Clinical Debridement Subcutaneous -Post Debridement Size (cm) - Length 2 -Post Debridement Size (cm) - Width 2.7 -Post Debridement Size (cm) - Depth 0.1 -Total Square Cm 5.4 -Wound/Ulcer Outcome Not Healed -Ulcer Cleansing Rinsed/ Irrigated with Saline -Foul Odor after Cleansing No -Bioengineered Tissue Yes -Type of bioengineered Tissue Apligraf -Expiration Date 01/18/18 -Product Lot Number [id number] -Percent Used 100 -Saline Lot Number [id number] -Bleeding Controlled with Pressure -Treatment Response Procedure Tolerated Well #7- LT INFERIOR CALF CLUSTER -Time 16:50 -Correct Patient Yes -Correct Side, Site, Position Yes -Correct Procedure Yes -Procedure Performed Yes -Type of Procedure Debridement -Clinical Debridement Subcutaneous -Post Debridement Size (cm) - Length 1.8 -Post Debridement Size (cm) - Width 4.3 -Post Debridement Size (cm) - Depth 0.1 -Total Square Cm 7.74 -Wound/Ulcer Outcome Not Healed -Ulcer Cleansing Rinsed/ Irrigated with Saline -Foul Odor after Cleansing No -Bioengineered Tissue Yes -Type of bioengineered Tissue Apligraf -Expiration Date 01/18/18 -Product Lot Number [id number] -Percent Used 100 -Saline Lot Number [id number] -Bleeding Controlled with Pressure -Treatment Response Procedure Tolerated Well #8 Left lateral LE -Time 16:50 -Correct Patient Yes -Correct Side, Site, Position Yes -Correct Procedure Yes -Procedure Performed Yes -Type of Procedure Debridement -Clinical Debridement Subcutaneous -Post Debridement Size (cm) - Length 0.9 -Post Debridement Size (cm) - Width 0.8 -Post Debridement Size (cm) - Depth 0.1 -Total Square Cm 0.72 -Wound/Ulcer Outcome Not Healed -Ulcer Cleansing Rinsed/ Irrigated with Saline -Foul Odor after Cleansing No -Bioengineered Tissue Yes -Type of bioengineered Tissue Apligraf -Expiration Date 01/18/18 -Product Lot Number [id number] -Percent Used 100 -Saline Lot Number [id number] -Bleeding Controlled with Pressure -Treatment Response Procedure Tolerated Well [See Physician Procedure note for Specifics] Pain Scale: 0-10 Numeric [Pain] -Is Patient Pain Free? Yes Musculoskeletal: No Tenderness to Palpation of Joints or Extremities, Muscle Wasting, - - Compartment left lower extremity remain soft to touch Neurological: Sensory exam intact to light touch and pain - Hypersensitivity Psych/Mental Status: Normal Affect, Appropriate Debridement Note Post-Debridement Measurements/Treatment WC - Nurse 2 - General Ulcer CM Notes Start: 01/11/18 16:18 Freq: Status: Active Protocol: Activity Type Activity Date Activity User E-Sign Co-Sign Detail Recorded Client Recorded Date Recorded By Document 01/11/18 16:46 KARTHIK [id number] 01/11/18 16:52 KARTHIK 01/11/18 16:46 Wound Center Nurse 2 #9 Left Medial-Superior Calf -Time 16:47 -Correct Patient Yes -Correct Side, Site, Position Yes -Correct Procedure Yes -Procedure Performed Yes -Type of Procedure Debridement -Clinical Debridement Subcutaneous -Post Debridement Size (cm) - Length 2 -Post Debridement Size (cm) - Width 2.7 -Post Debridement Size (cm) - Depth 0.1 -Total Square Cm 5.4 -Wound/Ulcer Outcome Not Healed -Ulcer Cleansing Rinsed/ Irrigated with Saline -Foul Odor after Cleansing No -Bioengineered Tissue Yes -Type of bioengineered Tissue Apligraf -Expiration Date 01/18/18 -Product Lot Number [id number] -Percent Used 100 -Saline Lot Number [id number] -Bleeding Controlled with Pressure -Treatment Response Procedure Tolerated Well #7- LT INFERIOR CALF CLUSTER -Time 16:50 -Correct Patient Yes -Correct Side, Site, Position Yes -Correct Procedure Yes -Procedure Performed Yes -Type of Procedure Debridement -Clinical Debridement Subcutaneous -Post Debridement Size (cm) - Length 1.8 -Post Debridement Size (cm) - Width 4.3 -Post Debridement Size (cm) - Depth 0.1 -Total Square Cm 7.74 -Wound/Ulcer Outcome Not Healed -Ulcer Cleansing Rinsed/ Irrigated with Saline -Foul Odor after Cleansing No -Bioengineered Tissue Yes -Type of bioengineered Tissue Apligraf -Expiration Date 01/18/18 -Product Lot Number [id number] -Percent Used 100 -Saline Lot Number [id number] -Bleeding Controlled with Pressure -Treatment Response Procedure Tolerated Well #8 Left lateral LE -Time 16:50 -Correct Patient Yes -Correct Side, Site, Position Yes -Correct Procedure Yes -Procedure Performed Yes -Type of Procedure Debridement -Clinical Debridement Subcutaneous -Post Debridement Size (cm) - Length 0.9 -Post Debridement Size (cm) - Width 0.8 -Post Debridement Size (cm) - Depth 0.1 -Total Square Cm 0.72 -Wound/Ulcer Outcome Not Healed -Ulcer Cleansing Rinsed/ Irrigated with Saline -Foul Odor after Cleansing No -Bioengineered Tissue Yes -Type of bioengineered Tissue Apligraf -Expiration Date 01/18/18 -Product Lot Number [id number] -Percent Used 100 -Saline Lot Number [id number] -Bleeding Controlled with Pressure -Treatment Response Procedure Tolerated Well Pain Scale: 0-10 Numeric Is Patient Pain Free? Yes Wound debrided: leg Laterality: Left Type of Debridement: Excisional debridement Anesthesia Used: 4% Lidocaine Solution Depth: in the subcutaneous layer Percentage of wound debrided: 100 Instrument Used: #15 blade Tissue Removed: devitalized subcutaneous, biofilm, slough, fibrous Severity: Limited To Skin Breakdown Amount of bleeding with debridement: Mild Bleeding Controlled with: Pressure Patient tolerated procedure well Assessment/Plan Active Problems Ulcer of left lower extremity with fat layer exposed (Chronic) Venous ulcer of left lower extremity with varicose veins (Chronic) Chronic pain disorder (Chronic) Lymphedema (Chronic) Assessment: Venous ulcers of lower extremities bilaterally. Lymphedema Plan: Mauricio's wounds/ulcers were evaluated and debrided today. He continues to have pain in his legs from his chronic pain syndrome. Epifix did not show any improvement in his wounds. He is here today for application of Apligraf. The indications purpose and anticipated healing was discussed. Verbal consent was obtained and the product was applied according to standard protocol after perforation was made with a 15 blade scalpel. This was secured in place with a wound veil and Steri-Strips. He was advised to keep this clean, dry, intact for the next week. He was advised to continue to treat his edema with tubigrips and have him continue to try and use his lymphedema pumps as much as possible. Encourage increased protein intake for improved healing; Xavier prescription was provided. Updated vascular studies and labs were recommend. Follow-up in 1 week for Apligraf application.
[2018-01-16 15:22] VITALS: BP 143/83; PULSE 77; RESP 16; TEMP 36.5; BMI 43.5
[2018-01-18 16:25] VITALS: BP 125/85; PULSE 74; RESP 18; TEMP 37; BMI 43.5
--- NOTE | 2018-01-18 17:30 | PCM.WC.PN ---
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 He has chronic edema of his lower extremities the left greater than the right status post stroke. He has compression stockings and lymphedema pumps. He has not been as compliant with his lymphedema pumps due to pain/pressure and he reports an odor since he was started on the apligraft. He denies fever, chill, nausea, vomiting. He had an Apligraf applied last week. Progress of Wound: Stable - Physical Exam Vital Signs Temp Pulse Resp BP 98.6 F 74 18 125/85 H 01/18/18 16:25 01/18/18 16:25 01/18/18 16:25 01/18/18 16:25 General: Alert, Oriented x3, Cooperative Extremities: No cyanosis, Capillary Refill Less than 3 Seconds, No Calf Tenderness, Diminished Peripheral Pulses, Edema Skin: Ulcer/ Wound - No purulence, no erythema, streaking, no odor, no infection left. His skin is atrophic. The Apligraf is intact without odor and is secured with a wound veil and Steri-Strips. Wound Measurements and Assessment WC - Nurse 1 - General Ulcer Measurement Start: 01/11/18 16:18 Freq: Status: Active Protocol: Activity Type Activity Date Activity User E-Sign Co-Sign Detail Recorded Client Recorded Date Recorded By Document 01/16/18 15:22 JF [id number] 01/16/18 15:24 JF Document 01/18/18 16:25 DL [id number] 01/18/18 16:28 DL 01/16/18 01/18/18 15:22 16:25 [Ulcer Assessment] #9 Left Medial-Superior Calf -Photo Taken No -Exudate Amt Small (1-33%) -Exudate Type Serosanguineous -Texture (Marie-wound Skin Appearance) No Abnormality -Moisture (Marie-wound Skin Appearance No Abnormality ) -Color (Marie-wound Skin Appearance) Hemosiderin Staining -Temperature (Marie-wound Skin No Abnormality Appearance) (Pt Warm) -Ulcer Cleansing Wound Cleanser -Foul Odor after Cleansing No #7- LT INFERIOR CALF CLUSTER -Photo Taken No -Texture (Marie-wound Skin Appearance) No Abnormality -Moisture (Marie-wound Skin Appearance No Abnormality ) -Color (Marie-wound Skin Appearance) Hemosiderin Staining -Temperature (Marie-wound Skin No Abnormality Appearance) (Pt Warm) -Ulcer Cleansing Wound Cleanser -Foul Odor after Cleansing No #8 Left lateral LE -Photo Taken No -Texture (Marie-wound Skin Appearance) No Abnormality -Moisture (Marie-wound Skin Appearance No Abnormality ) -Color (Marie-wound Skin Appearance) No Abnormality -Temperature (Marie-wound Skin No Abnormality Appearance) (Pt Warm) -Ulcer Cleansing Wound Cleanser -Foul Odor after Cleansing No Wound Center Nurse 1 [Edema Assessment] -Lower Limb Edema Present Yes -Left Calf (cm) 42.3 41 -Left Ankle (cm) 27.3 26.5 WC - Nurse 2 - General Ulcer CM Notes Start: 01/11/18 16:18 Freq: Status: Active Protocol: Activity Type Activity Date Activity User E-Sign Co-Sign Detail Recorded Client Recorded Date Recorded By Document 01/18/18 17:11 KARTHIK [id number] 01/18/18 17:13 KARTHIK 01/18/18 17:11 Wound Center Nurse 2 [Procedure/Treatment] #9 Left Medial-Superior Calf -Correct Patient No -Correct Side, Site, Position No -Correct Procedure No -Procedure Performed No -Bleeding Controlled with NA #7- LT INFERIOR CALF CLUSTER -Correct Patient No -Correct Side, Site, Position No -Correct Procedure No -Procedure Performed No -Bleeding Controlled with NA #8 Left lateral LE -Correct Patient No -Correct Side, Site, Position No -Correct Procedure No -Procedure Performed No -Bleeding Controlled with NA [See Physician Procedure note for Specifics] Pain Scale: 0-10 Numeric [Pain] -Is Patient Pain Free? Yes Musculoskeletal: No Tenderness to Palpation of Joints or Extremities, Muscle Wasting Neurological: Sensory exam intact to light touch and pain Psych/Mental Status: Normal Affect, Appropriate Debridement Note Post-Debridement Measurements/Treatment WC - Nurse 2 - General Ulcer CM Notes Start: 01/11/18 16:18 Freq: Status: Active Protocol: Activity Type Activity Date Activity User E-Sign Co-Sign Detail Recorded Client Recorded Date Recorded By Document 01/11/18 16:46 [id number] 01/11/18 16:52 Document 01/18/18 17:11 [id number] 01/18/18 17:13 01/11/18 01/18/18 16:46 17:11 Wound Center Nurse 2 #9 Left Medial-Superior Calf -Time 16:47 -Correct Patient Yes No -Correct Side, Site, Position Yes No -Correct Procedure Yes No -Procedure Performed Yes No -Type of Procedure Debridement -Clinical Debridement Subcutaneous -Post Debridement Size (cm) - Length 2 -Post Debridement Size (cm) - Width 2.7 -Post Debridement Size (cm) - Depth 0.1 -Total Square Cm 5.4 -Wound/Ulcer Outcome Not Healed -Ulcer Cleansing Rinsed/ Irrigated with Saline -Foul Odor after Cleansing No -Bioengineered Tissue Yes -Type of bioengineered Tissue Apligraf -Expiration Date 01/18/18 -Product Lot Number [id number] -Percent Used 100 -Saline Lot Number [id number] -Bleeding Controlled with Pressure NA -Treatment Response Procedure Tolerated Well #7- LT INFERIOR CALF CLUSTER -Time 16:50 -Correct Patient Yes No -Correct Side, Site, Position Yes No -Correct Procedure Yes No -Procedure Performed Yes No -Type of Procedure Debridement -Clinical Debridement Subcutaneous -Post Debridement Size (cm) - Length 1.8 -Post Debridement Size (cm) - Width 4.3 -Post Debridement Size (cm) - Depth 0.1 -Total Square Cm 7.74 -Wound/Ulcer Outcome Not Healed -Ulcer Cleansing Rinsed/ Irrigated with Saline -Foul Odor after Cleansing No -Bioengineered Tissue Yes -Type of bioengineered Tissue Apligraf -Expiration Date 01/18/18 -Product Lot Number [id number] -Percent Used 100 -Saline Lot Number [id number] -Bleeding Controlled with Pressure NA -Treatment Response Procedure Tolerated Well #8 Left lateral LE -Time 16:50 -Correct Patient Yes No -Correct Side, Site, Position Yes No -Correct Procedure Yes No -Procedure Performed Yes No -Type of Procedure Debridement -Clinical Debridement Subcutaneous -Post Debridement Size (cm) - Length 0.9 -Post Debridement Size (cm) - Width 0.8 -Post Debridement Size (cm) - Depth 0.1 -Total Square Cm 0.72 -Wound/Ulcer Outcome Not Healed -Ulcer Cleansing Rinsed/ Irrigated with Saline -Foul Odor after Cleansing No -Bioengineered Tissue Yes -Type of bioengineered Tissue Apligraf -Expiration Date 01/18/18 -Product Lot Number [id number] -Percent Used 100 -Saline Lot Number [id number] -Bleeding Controlled with Pressure NA -Treatment Response Procedure Tolerated Well Pain Scale: 0-10 Numeric Is Patient Pain Free? Yes Yes No debridement was completed today - Debridement and application of advanced wound care products will be reconsidered next week Assessment/Plan Active Problems Ulcer of left lower extremity with fat layer exposed (Chronic) Venous ulcer of left lower extremity with varicose veins (Chronic) Chronic pain disorder (Chronic) Lymphedema (Chronic) Assessment: Venous ulcers of lower extremities bilaterally. Lymphedema Plan: Mauricio's wounds/ulcers were evaluated and debrided today. I reviewed and discussed his care plan and ongoing treatment recommendations. He continues to have pain in his legs from his chronic pain syndrome. Epifix did not show any improvement in his wounds. He had his first Apligraf application applied last week and is doing well. The sites were checked and these were kept intact. Additional outer secondary dressing and compression wrap was applied. He was advised to keep this clean, dry, intact for the next week. He was advised to continue to treat his edema with tubigrips and have him continue to try and use his lymphedema pumps as much as possible. Encourage increased protein intake for improved healing; Xavier prescription was provided. Updated vascular studies and labs were recommend. Follow-up in 1 week for Apligraf application.
[2018-01-25 15:33] VITALS: BP 139/94; PULSE 82; RESP 18; TEMP 36.6; BMI 43.5
--- NOTE | 2018-01-25 16:34 | PCM.WC.PN ---
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 He has chronic edema of his lower extremities the left greater than the right status post stroke. He has compression stockings and lymphedema pumps. He has not been as compliant with his lymphedema pumps due to pain/pressure and he reports an odor since he was started on the apligraft. He denies fever, chill, nausea, vomiting. He had an Apligraf applied 2 weeks ago and tolerated this product well. He is amenable to having another application today. He denies recent injury. Progress of Wound: Stable - Physical Exam Vital Signs Temp Pulse Resp BP 97.8 F 82 18 139/94 H 01/25/18 15:33 01/25/18 15:33 01/25/18 15:33 01/25/18 15:33 General: Alert, Oriented x3, Cooperative Extremities: No cyanosis, Capillary Refill Less than 3 Seconds, No Calf Tenderness - Negative Peace and Del[place]ruz last, Diminished Peripheral Pulses, Edema, Tenderness - Hypersensitivity on palpation to the wound in periwound site consistent with his pain syndrome Skin: Ulcer/ Wound - No purulence, no erythema, streaking, no odor, no acute signs of infection noted left lower extremity. There is mainly granulation tissue with necrotic and fibrotic tissue in the wound bed noted., - - His peripheral skin is atrophic. Wound Measurements and Assessment WC - Nurse 1 - General Ulcer Measurement Start: 01/11/18 16:18 Freq: Status: Active Protocol: Activity Type Activity Date Activity User E-Sign Co-Sign Detail Recorded Client Recorded Date Recorded By Document 01/25/18 15:33 [email or web address] [id number] 01/25/18 15:40 [email or web address] 01/25/18 15:33 Wound Center Nurse 1 [Ulcer Assessment] #9 Left Medial-Superior Calf -Combined with other wound No -Current Size (cm) - Length 2.0 -Current Size (cm) - Width 2.4 -Current Size (cm) - Depth 0.1 -Total Square Cm 4.80 -Photo Taken No -Epithelialization Small 1-33% -Tunneling No -Undermining/Tunneling No -Circular Undermining No -Exudate Amt Small (1-33%) -Exudate Type Serosanguineous -Wound Margin Flat & Intact -Granulation Amt Medium (34-66%) -Granulation Quality [place] -Slough/Fibrin Yes -Necrosis Amt Medium (34-66%) -Necrotic Tissue Type Adherent Slough -Structure Exposed N/A -Texture (Marie-wound Skin Appearance) Assessed Localized Edema -Moisture (Marie-wound Skin Appearance Assessed ) Dry/Scaly -Color (Marie-wound Skin Appearance) Assessed Hemosiderin Staining -Temperature (Marie-wound Skin No Abnormality Appearance) (Pt Warm) -Tenderness on Palpation (Marie-wound No Skin Appearance) -Ulcer Cleansing Wound Cleanser -Foul Odor after Cleansing No -Anesthetic Used 4% Lidocaine Solution #7- LT INFERIOR CALF CLUSTER -Combined with other wound No -Current Size (cm) - Length 2.0 -Current Size (cm) - Width 1.8 -Current Size (cm) - Depth 0.1 -Total Square Cm 3.60 -Photo Taken No -Epithelialization Small 1-33% -Tunneling No -Undermining/Tunneling No -Circular Undermining No -Exudate Amt Small (1-33%) -Exudate Type Serosanguineous -Wound Margin Flat & Intact -Granulation Amt Medium (34-66%) -Granulation Quality [place] -Slough/Fibrin Yes -Necrosis Amt Small (1-33%) -Necrotic Tissue Type Adherent Slough -Structure Exposed N/A -Texture (Marie-wound Skin Appearance) Assessed Localized Edema -Moisture (Marie-wound Skin Appearance Assessed ) Dry/Scaly -Color (Marie-wound Skin Appearance) Assessed Hemosiderin Staining -Temperature (Marie-wound Skin No Abnormality Appearance) (Pt Warm) -Tenderness on Palpation (Marie-wound No Skin Appearance) -Ulcer Cleansing Wound Cleanser -Foul Odor after Cleansing No -Anesthetic Used 4% Lidocaine Solution #8 Left lateral LE -Combined with other wound No -Current Size (cm) - Length 1.6 -Current Size (cm) - Width 0.7 -Current Size (cm) - Depth 0.1 -Total Square Cm 1.12 -Photo Taken No -Epithelialization Small 1-33% -Tunneling No -Undermining/Tunneling No -Circular Undermining No -Exudate Amt Small (1-33%) -Exudate Type Serosanguineous -Wound Margin Flat & Intact -Granulation Amt Small (1-33%) -Granulation Quality [place] -Slough/Fibrin Yes -Necrosis Amt Large (67-100%) -Necrotic Tissue Type Adherent Slough -Structure Exposed N/A -Texture (Marie-wound Skin Appearance) Assessed Localized Edema Scarring -Moisture (Marie-wound Skin Appearance Assessed ) Dry/Scaly -Color (Marie-wound Skin Appearance) Assessed Hemosiderin Staining -Temperature (Marie-wound Skin No Abnormality Appearance) (Pt Warm) -Ulcer Cleansing Wound Cleanser -Foul Odor after Cleansing No -Anesthetic Used 4% Lidocaine Solution [Edema Assessment] -Lower Limb Edema Present Yes -Left Calf (cm) 41.7 -Left Ankle (cm) 26.8 WC - Nurse 2 - General Ulcer CM Notes Start: 01/11/18 16:18 Freq: Status: Active Protocol: Activity Type Activity Date Activity User E-Sign Co-Sign Detail Recorded Client Recorded Date Recorded By Document 01/25/18 16:26 [id number] 01/25/18 16:28 01/25/18 16:26 Wound Center Nurse 2 [Procedure/Treatment] #9 Left Medial-Superior Calf -Time 16:26 -Correct Patient Yes -Correct Side, Site, Position Yes -Correct Procedure Yes -Procedure Performed Yes -Type of Procedure Debridement -Clinical Debridement Subcutaneous -Post Debridement Size (cm) - Length 2 -Post Debridement Size (cm) - Width 2.5 -Post Debridement Size (cm) - Depth 0.1 -Total Square Cm 5.0 -Wound/Ulcer Outcome Not Healed -Ulcer Cleansing Rinsed/ Irrigated with Saline -Foul Odor after Cleansing No -Bioengineered Tissue Yes -Type of bioengineered Tissue Apligraf -Expiration Date 02/02/18 -Product Lot Number [id number] -Percent Used 100 -Saline Lot Number [id number] -Bleeding Controlled with Pressure -Treatment Response Procedure Tolerated Well #7- LT INFERIOR CALF CLUSTER -Time 16:26 -Correct Patient Yes -Correct Side, Site, Position Yes -Correct Procedure Yes -Procedure Performed Yes -Type of Procedure Debridement -Clinical Debridement Subcutaneous -Post Debridement Size (cm) - Length 2 -Post Debridement Size (cm) - Width 1.9 -Post Debridement Size (cm) - Depth 0.1 -Total Square Cm 3.8 -Wound/Ulcer Outcome Not Healed -Ulcer Cleansing Rinsed/ Irrigated with Saline -Foul Odor after Cleansing No -Bioengineered Tissue Yes -Type of bioengineered Tissue Apligraf -Expiration Date 02/02/18 -Product Lot Number [id number] -Percent Used 100 -Saline Lot Number [id number] -Bleeding Controlled with Pressure -Treatment Response Procedure Tolerated Well #8 Left lateral LE -Time 16:27 -Correct Patient Yes -Correct Side, Site, Position Yes -Correct Procedure Yes -Procedure Performed Yes -Type of Procedure Debridement -Clinical Debridement Subcutaneous -Post Debridement Size (cm) - Length 1.7 -Post Debridement Size (cm) - Width 0.7 -Post Debridement Size (cm) - Depth 0.1 -Total Square Cm 1.19 -Wound/Ulcer Outcome Not Healed -Ulcer Cleansing Rinsed/ Irrigated with Saline -Foul Odor after Cleansing No -Bioengineered Tissue Yes -Type of bioengineered Tissue Apligraf -Expiration Date 02/02/18 -Product Lot Number [id number] -Percent Used 100 -Saline Lot Number [id number] -Bleeding Controlled with Pressure -Treatment Response Procedure Tolerated Well [See Physician Procedure note for Specifics] Pain Scale: 0-10 Numeric [Pain] -Is Patient Pain Free? Yes Musculoskeletal: No Tenderness to Palpation of Joints or Extremities, Muscle Wasting Neurological: Sensory exam intact to light touch and pain Psych/Mental Status: Normal Affect, Appropriate Debridement Note Post-Debridement Measurements/Treatment WC - Nurse 2 - General Ulcer CM Notes Start: 01/11/18 16:18 Freq: Status: Active Protocol: Activity Type Activity Date Activity User E-Sign Co-Sign Detail Recorded Client Recorded Date Recorded By Document 01/11/18 16:46 [email or web address] 01/11/18 16:52 Document 01/18/18 17:11 [id number] 01/18/18 17:13 Document 01/25/18 16:26 [id number] 01/25/18 16:28 01/11/18 01/18/18 01/25/18 16:46 17:11 16:26 Wound Center Nurse 2 #9 Left Medial-Superior Calf -Time 16:47 16:26 -Correct Patient Yes No Yes -Correct Side, Site, Position Yes No Yes -Correct Procedure Yes No Yes -Procedure Performed Yes No Yes -Type of Procedure Debridement Debridement -Clinical Debridement Subcutaneous Subcutaneous -Post Debridement Size (cm) - Length 2 2 -Post Debridement Size (cm) - Width 2.7 2.5 -Post Debridement Size (cm) - Depth 0.1 0.1 -Total Square Cm 5.4 5.0 -Wound/Ulcer Outcome Not Healed Not Healed -Ulcer Cleansing Rinsed/ Rinsed/ Irrigated with Irrigated with Saline Saline -Foul Odor after Cleansing No No -Bioengineered Tissue Yes Yes -Type of bioengineered Tissue Apligraf Apligraf -Expiration Date 01/18/18 02/02/18 -Product Lot Number [id number] -Percent Used 100 100 -Saline Lot Number [id number] -Bleeding Controlled with Pressure NA Pressure -Treatment Response Procedure Procedure Tolerated Well Tolerated Well #7- LT INFERIOR CALF CLUSTER -Time 16:50 16:26 -Correct Patient Yes No Yes -Correct Side, Site, Position Yes No Yes -Correct Procedure Yes No Yes -Procedure Performed Yes No Yes -Type of Procedure Debridement Debridement -Clinical Debridement Subcutaneous Subcutaneous -Post Debridement Size (cm) - Length 1.8 2 -Post Debridement Size (cm) - Width 4.3 1.9 -Post Debridement Size (cm) - Depth 0.1 0.1 -Total Square Cm 7.74 3.8 -Wound/Ulcer Outcome Not Healed Not Healed -Ulcer Cleansing Rinsed/ Rinsed/ Irrigated with Irrigated with Saline Saline -Foul Odor after Cleansing No No -Bioengineered Tissue Yes Yes -Type of bioengineered Tissue Apligraf Apligraf -Expiration Date 01/18/18 02/02/18 -Product Lot Number [id number] -Percent Used 100 100 -Saline Lot Number [id number] -Bleeding Controlled with Pressure NA Pressure -Treatment Response Procedure Procedure Tolerated Well Tolerated Well #8 Left lateral LE -Time 16:50 16:27 -Correct Patient Yes No Yes -Correct Side, Site, Position Yes No Yes -Correct Procedure Yes No Yes -Procedure Performed Yes No Yes -Type of Procedure Debridement Debridement -Clinical Debridement Subcutaneous Subcutaneous -Post Debridement Size (cm) - Length 0.9 1.7 -Post Debridement Size (cm) - Width 0.8 0.7 -Post Debridement Size (cm) - Depth 0.1 0.1 -Total Square Cm 0.72 1.19 -Wound/Ulcer Outcome Not Healed Not Healed -Ulcer Cleansing Rinsed/ Rinsed/ Irrigated with Irrigated with Saline Saline -Foul Odor after Cleansing No No -Bioengineered Tissue Yes Yes -Type of bioengineered Tissue Apligraf Apligraf -Expiration Date 01/18/18 02/02/18 -Product Lot Number [id number] -Percent Used 100 100 -Saline Lot Number [id number] -Bleeding Controlled with Pressure NA Pressure -Treatment Response Procedure Procedure Tolerated Well Tolerated Well Pain Scale: 0-10 Numeric Is Patient Pain Free? Yes Yes Yes Wound debrided: inferior calf Laterality: Left Type of Debridement: Excisional debridement Anesthesia Used: 4% Lidocaine Solution Depth: in the subcutaneous layer Percentage of wound debrided: 100 Instrument Used: #15 blade Tissue Removed: fibrous, devitalized subcutaneous, biofilm, slough Amount of bleeding with debridement: Mild Bleeding Controlled with: Pressure Patient tolerated procedure well - Additional Wound Wound debrided: lateral lower leg Laterality: Left Type of Debridement: Excisional debridement Anesthesia Used: 4% Lidocaine Solution Depth: in the subcutaneous layer Percentage of wound debrided: 100 Instrument Used: #15 blade Tissue Removed: fibrous, devitalized subcutaneous, biofilm, slough Severity: Fat Layer Exposed Amount of bleeding with debridement: Mild Bleeding Controlled with: Pressure Patient tolerated procedure: Patient tolerated procedure well - Additional Wound Wound debrided: medial superior leg Laterality: Left Type of Debridement: Excisional debridement Anesthesia Used: 4% Lidocaine Solution Depth: in the subcutaneous layer Percentage of wound debrided: 100 Instrument Used: #15 blade Tissue Removed: fibrous, devitalized subcutaneous, biofilm, slough Severity: Fat Layer Exposed Amount of bleeding with debridement: Mild Bleeding Controlled with: Pressure Patient tolerated procedure: Patient tolerated procedure well Assessment/Plan Active Problems Ulcer of left lower extremity with fat layer exposed (Chronic) Venous ulcer of left lower extremity with varicose veins (Chronic) Chronic pain disorder (Chronic) Lymphedema (Chronic) Assessment: Venous ulcers of lower extremities left with fat layer exposed. Lymphedema. Delayed healing. Chronic pain syndrome Plan: Mauricio's wounds/ulcers were evaluated and debrided today. I reviewed and discussed his care plan and ongoing treatment recommendations. He continues to have pain in his legs from his chronic pain syndrome. Epifix did not show any improvement in his wounds. He tolerated his last Apligraf application well and I recommend proceeding with an additional application today. Verbal consent was, the post debrided wound is noted in the clinical panel was slightly cleansed with normal saline and Apligraf was applied according to standard protocol after perforating it with a 15 blade scalpel. The Apligraf was secured in place with Steri-Strips and wound veil. Pressure was applied to maintain hemostasis and he tolerated this well. Additional outer secondary dressing and compression wrap was applied. He was advised to keep this clean, dry, intact for the next week. He was advised to continue to treat his edema with tubigrips and have him continue to try and use his lymphedema pumps as much as possible. Encourage increased protein intake for improved healing; Xavier prescription was provided at a previous visit. Updated vascular studies and labs were recommend. He had a previous venous Doppler in April 2017 follow-up on his previous deep venous thrombosis in his exam also demonstrated reflux in the left popliteal vein. If lack of progress in [place] recommended vascular reevaluation. It is noted he had previous noninvasive arterial studies in September 2015 with bilateral biphasic waveforms, right PARADISE of 1.41, left PARADISE of 1.42, white toe brachial index of 1.06 and left toe brachial index of 1.05. He had a subsequent duplex arterial study with bilateral calcifications identified with no significant occlusive disease identified. Another consideration if lack of healing is noted even with advanced wound products is to obtain a punch biopsy of the wound to rule out any malignant transformation or other differential diagnoses. To follow-up in 1 week for Apligraf check or call sooner if he has any questions or concerns. I answered all his questions.
[2018-02-01 16:33] VITALS: BP 113/74; PULSE 67; RESP 16; TEMP 36.3; BMI 43.5
--- NOTE | 2018-02-02 12:56 | PCM.WC.PN ---
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 He denies fever, chill, nausea, vomiting. He had an Apligraf applied 1 weeks ago and tolerated this product well. Progress of Wound: Stable - Physical Exam Vital Signs Temp Pulse Resp BP 97.3 F L 67 16 113/74 02/01/18 16:33 02/01/18 16:33 02/01/18 16:33 02/01/18 16:33 General: Alert, Oriented x3, Cooperative Extremities: No cyanosis, Capillary Refill Less than 3 Seconds, No Calf Tenderness - Negative Peace and Delacruz last, Diminished Peripheral Pulses, Edema Skin: Ulcer/ Wound - No purulence, no erythema, streaking, no infection left leg. The wound veil and Steri-Strips remain intact to the previously applied Apligraf that is incorporating in. Wound Measurements and Assessment WC - Nurse 1 - General Ulcer Measurement Start: 01/11/18 16:18 Freq: Status: Active Protocol: Activity Type Activity Date Activity User E-Sign Co-Sign Detail Recorded Client Recorded Date Recorded By Document 02/01/18 16:33 ELIZABETH [id number] 02/01/18 16:53 ELIZABETH 02/01/18 16:33 Wound Center Nurse 1 [Ulcer Assessment] #9 Left Medial-Superior Calf -Combined with other wound No -Current Size (cm) - Length 2.0 -Current Size (cm) - Width 2.4 -Current Size (cm) - Depth 0.1 -Total Square Cm 4.80 -Date of Last Picture (Recall this 12/30/17 field) -Photo Taken No -Epithelialization None Present -Tunneling No -Undermining/Tunneling No -Circular Undermining No -Classification - Thickness Full Thickness without Exposed Support Structure -Exudate Amt Medium (34-66%) -Exudate Type Purulent -Wound Margin Distinct, Outline Attached -Granulation Amt None Present (0 %) -Granulation Quality N/A -Slough/Fibrin No -Necrosis Amt None Present (0 %) -Necrotic Tissue Type Adherent Slough -Structure Exposed N/A -Texture (Marie-wound Skin Appearance) No Abnormality -Moisture (Marie-wound Skin Appearance No Abnormality ) -Color (Marie-wound Skin Appearance) No Abnormality -Temperature (Marie-wound Skin No Abnormality Appearance) (Pt Warm) -Tenderness on Palpation (Marie-wound No Skin Appearance) -Ulcer Cleansing Rinsed/ Irrigated with Saline -Foul Odor after Cleansing No #7- LT INFERIOR CALF CLUSTER -Combined with other wound No -Current Size (cm) - Length 2.0 -Current Size (cm) - Width 0.8 -Current Size (cm) - Depth 0.1 -Total Square Cm 1.60 -Date of Last Picture (Recall this 12/30/17 field) -Photo Taken No -Epithelialization None Present -Tunneling No -Undermining/Tunneling No -Circular Undermining No -Classification - Thickness Full Thickness without Exposed Support Structure -Exudate Amt Medium (34-66%) -Exudate Type Purulent -Wound Margin Distinct, Outline Attached -Granulation Amt None Present (0 %) -Granulation Quality N/A -Slough/Fibrin Yes -Necrosis Amt None Present (0 %) -Necrotic Tissue Type Adherent Slough -Structure Exposed N/A -Texture (Marie-wound Skin Appearance) No Abnormality -Moisture (Marie-wound Skin Appearance No Abnormality ) -Color (Marie-wound Skin Appearance) No Abnormality -Temperature (Marie-wound Skin No Abnormality Appearance) (Pt Warm) -Tenderness on Palpation (Marie-wound No Skin Appearance) -Ulcer Cleansing Rinsed/ Irrigated with Saline #8 Left lateral LE -Combined with other wound No -Current Size (cm) - Length 1.6 -Current Size (cm) - Width 0.7 -Current Size (cm) - Depth 0.1 -Total Square Cm 1.12 -Date of Last Picture (Recall this 12/30/17 field) -Photo Taken No -Epithelialization None Present -Tunneling No -Undermining/Tunneling No -Circular Undermining No -Classification - Thickness Full Thickness without Exposed Support Structure -Exudate Amt Medium (34-66%) -Exudate Type Purulent -Wound Margin Distinct, Outline Attached -Granulation Amt None Present (0 %) -Granulation Quality N/A -Slough/Fibrin Yes -Necrosis Amt None Present (0 %) -Necrotic Tissue Type Adherent Slough -Structure Exposed N/A -Texture (Marie-wound Skin Appearance) No Abnormality -Moisture (Marie-wound Skin Appearance No Abnormality ) -Color (Marie-wound Skin Appearance) No Abnormality -Temperature (Marie-wound Skin No Abnormality Appearance) (Pt Warm) -Tenderness on Palpation (Marie-wound Yes Skin Appearance) -Ulcer Cleansing Rinsed/ Irrigated with Saline -Foul Odor after Cleansing No [Edema Assessment] -Lower Limb Edema Present Yes -Left Calf (cm) 41.5 -Left Ankle (cm) 27.5 WC - Nurse 2 - General Ulcer CM Notes Start: 01/11/18 16:18 Freq: Status: Active Protocol: Activity Type Activity Date Activity User E-Sign Co-Sign Detail Recorded Client Recorded Date Recorded By Document 02/01/18 17:08 [id number] 02/01/18 17:10 02/01/18 17:08 Wound Center Nurse 2 [Procedure/Treatment] #9 Left Medial-Superior Calf -Time 17:08 -Correct Patient Yes -Correct Side, Site, Position Yes -Correct Procedure Yes -Procedure Performed Yes -Wound/Ulcer Outcome Not Healed -Ulcer Cleansing Rinsed/ Irrigated with Saline -Foul Odor after Cleansing No -Bioengineered Tissue No -Bleeding Controlled with NA -Other NO DEBRIDEMENT APLIGRAF INTACT COVERED W/ WOUND VEIL SECURED BY STERI STRIPS -Treatment Response Procedure Tolerated Well #7- LT INFERIOR CALF CLUSTER -Time 17:09 -Correct Patient Yes -Correct Side, Site, Position Yes -Correct Procedure Yes -Procedure Performed Yes -Wound/Ulcer Outcome Not Healed -Ulcer Cleansing Rinsed/ Irrigated with Saline -Foul Odor after Cleansing No -Bioengineered Tissue No -Bleeding Controlled with NA -Other NO DEBRIDEMENT APLIGRAF INTACT COVERED W/ WOUND VEIL SECURED BY STERI STRIPS #8 Left lateral LE -Time 17:10 -Correct Patient Yes -Correct Side, Site, Position Yes -Correct Procedure Yes -Procedure Performed Yes -Wound/Ulcer Outcome Not Healed -Ulcer Cleansing Rinsed/ Irrigated with Saline -Foul Odor after Cleansing No -Bioengineered Tissue No -Bleeding Controlled with NA -Other NO DEBRIDEMENT APLIGRAF INTACT COVERED W/ WOUND VEIL SECURED BY STERI STRIPS [See Physician Procedure note for Specifics] Pain Scale: 0-10 Numeric [Pain] -Is Patient Pain Free? Yes Musculoskeletal: No Tenderness to Palpation of Joints or Extremities, Muscle Wasting Psych/Mental Status: Normal Affect, Appropriate Debridement Note Post-Debridement Measurements/Treatment WC - Nurse 2 - General Ulcer CM Notes Start: 01/11/18 16:18 Freq: Status: Active Protocol: Activity Type Activity Date Activity User E-Sign Co-Sign Detail Recorded Client Recorded Date Recorded By Document 01/11/18 16:46 [id number] 01/11/18 16:52 Document 01/18/18 17:11 [id number] 01/18/18 17:13 Document 01/25/18 16:26 [id number] 01/25/18 16:28 Document 02/01/18 17:08 [id number] 02/01/18 17:10 TM 01/11/18 01/18/18 01/25/18 16:46 17:11 16:26 Wound Center Nurse 2 #9 Left Medial-Superior Calf -Time 16:47 16:26 -Correct Patient Yes No Yes -Correct Side, Site, Position Yes No Yes -Correct Procedure Yes No Yes -Procedure Performed Yes No Yes -Type of Procedure Debridement Debridement -Clinical Debridement Subcutaneous Subcutaneous -Post Debridement Size (cm) - Length 2 2 -Post Debridement Size (cm) - Width 2.7 2.5 -Post Debridement Size (cm) - Depth 0.1 0.1 -Total Square Cm 5.4 5.0 -Wound/Ulcer Outcome Not Healed Not Healed -Ulcer Cleansing Rinsed/ Rinsed/ Irrigated with Irrigated with Saline Saline -Foul Odor after Cleansing No No -Bioengineered Tissue Yes Yes -Type of bioengineered Tissue Apligraf Apligraf -Expiration Date 01/18/18 02/02/18 -Product Lot Number [id number] -Percent Used 100 100 -Saline Lot Number [id number] -Bleeding Controlled with Pressure NA Pressure -Other -Treatment Response Procedure Procedure Tolerated Well Tolerated Well #7- LT INFERIOR CALF CLUSTER -Time 16:50 16:26 -Correct Patient Yes No Yes -Correct Side, Site, Position Yes No Yes -Correct Procedure Yes No Yes -Procedure Performed Yes No Yes -Type of Procedure Debridement Debridement -Clinical Debridement Subcutaneous Subcutaneous -Post Debridement Size (cm) - Length 1.8 2 -Post Debridement Size (cm) - Width 4.3 1.9 -Post Debridement Size (cm) - Depth 0.1 0.1 -Total Square Cm 7.74 3.8 -Wound/Ulcer Outcome Not Healed Not Healed -Ulcer Cleansing Rinsed/ Rinsed/ Irrigated with Irrigated with Saline Saline -Foul Odor after Cleansing No No -Bioengineered Tissue Yes Yes -Type of bioengineered Tissue Apligraf Apligraf -Expiration Date 01/18/18 02/02/18 -Product Lot Number [id number] -Percent Used 100 100 -Saline Lot Number [id number] -Bleeding Controlled with Pressure NA Pressure -Other -Treatment Response Procedure Procedure Tolerated Well Tolerated Well #8 Left lateral LE -Time 16:50 16:27 -Correct Patient Yes No Yes -Correct Side, Site, Position Yes No Yes -Correct Procedure Yes No Yes -Procedure Performed Yes No Yes -Type of Procedure Debridement Debridement -Clinical Debridement Subcutaneous Subcutaneous -Post Debridement Size (cm) - Length 0.9 1.7 -Post Debridement Size (cm) - Width 0.8 0.7 -Post Debridement Size (cm) - Depth 0.1 0.1 -Total Square Cm 0.72 1.19 -Wound/Ulcer Outcome Not Healed Not Healed -Ulcer Cleansing Rinsed/ Rinsed/ Irrigated with Irrigated with Saline Saline -Foul Odor after Cleansing No No -Bioengineered Tissue Yes Yes -Type of bioengineered Tissue Apligraf Apligraf -Expiration Date 01/18/18 02/02/18 -Product Lot Number [id number] -Percent Used 100 100 -Saline Lot Number [id number] -Bleeding Controlled with Pressure NA Pressure -Other -Treatment Response Procedure Procedure Tolerated Well Tolerated Well Pain Scale: 0-10 Numeric Is Patient Pain Free? Yes Yes Yes 02/01/18 17:08 Wound Center Nurse 2 #9 Left Medial-Superior Calf -Time 17:08 -Correct Patient Yes -Correct Side, Site, Position Yes -Correct Procedure Yes -Procedure Performed Yes -Type of Procedure -Clinical Debridement -Post Debridement Size (cm) - Length -Post Debridement Size (cm) - Width -Post Debridement Size (cm) - Depth -Total Square Cm -Wound/Ulcer Outcome Not Healed -Ulcer Cleansing Rinsed/ Irrigated with Saline -Foul Odor after Cleansing No -Bioengineered Tissue No -Type of bioengineered Tissue -Expiration Date -Product Lot Number -Percent Used -Saline Lot Number -Bleeding Controlled with NA -Other NO DEBRIDEMENT APLIGRAF INTACT COVERED W/ WOUND VEIL SECURED BY STERI STRIPS -Treatment Response Procedure Tolerated Well #7- LT INFERIOR CALF CLUSTER -Time 17:09 -Correct Patient Yes -Correct Side, Site, Position Yes -Correct Procedure Yes -Procedure Performed Yes -Type of Procedure -Clinical Debridement -Post Debridement Size (cm) - Length -Post Debridement Size (cm) - Width -Post Debridement Size (cm) - Depth -Total Square Cm -Wound/Ulcer Outcome Not Healed -Ulcer Cleansing Rinsed/ Irrigated with Saline -Foul Odor after Cleansing No -Bioengineered Tissue No -Type of bioengineered Tissue -Expiration Date -Product Lot Number -Percent Used -Saline Lot Number -Bleeding Controlled with NA -Other NO DEBRIDEMENT APLIGRAF INTACT COVERED W/ WOUND VEIL SECURED BY STERI STRIPS -Treatment Response #8 Left lateral LE -Time 17:10 -Correct Patient Yes -Correct Side, Site, Position Yes -Correct Procedure Yes -Procedure Performed Yes -Type of Procedure -Clinical Debridement -Post Debridement Size (cm) - Length -Post Debridement Size (cm) - Width -Post Debridement Size (cm) - Depth -Total Square Cm -Wound/Ulcer Outcome Not Healed -Ulcer Cleansing Rinsed/ Irrigated with Saline -Foul Odor after Cleansing No -Bioengineered Tissue No -Type of bioengineered Tissue -Expiration Date -Product Lot Number -Percent Used -Saline Lot Number -Bleeding Controlled with NA -Other NO DEBRIDEMENT APLIGRAF INTACT COVERED W/ WOUND VEIL SECURED BY STERI STRIPS -Treatment Response Pain Scale: 0-10 Numeric Is Patient Pain Free? Yes No debridement was completed today - Debridement and additional Apligraf application be considered next week Assessment/Plan Active Problems Ulcer of left lower extremity with fat layer exposed (Chronic) Venous ulcer of left lower extremity with varicose veins (Chronic) Chronic pain disorder (Chronic) Lymphedema (Chronic) Assessment: Venous ulcers of lower extremities left with fat layer exposed. Lymphedema. Delayed healing. Chronic pain syndrome Plan: Mauricio's wounds/ulcers were evaluated today and the Apligraf is intact and this was left alone. I reviewed and discussed his care plan and ongoing treatment recommendations. Additional debridement and application be considered next week. A secondary dressing was applied. He was advised to keep this clean, dry, intact for the next week. He was advised to continue to treat his edema with tubigrips and have him continue to try and use his lymphedema pumps as much as possible. Encourage increased protein intake for improved healing; Xavier prescription was provided at a previous visit. Updated vascular studies and labs were recommend. He had a previous venous Doppler in April 2017 follow-up on his previous deep venous thrombosis in his exam also demonstrated reflux in the left popliteal vein. If lack of progress in [place] recommended vascular reevaluation. It is noted he had previous noninvasive arterial studies in September 2015 with bilateral biphasic waveforms, right PARADISE of 1.41, left PARADISE of 1.42, white toe brachial index of 1.06 and left toe brachial index of 1.05. He had a subsequent duplex arterial study with bilateral calcifications identified with no significant occlusive disease identified. Another consideration if lack of healing is noted even with advanced wound products is to obtain a punch biopsy of the wound to rule out any malignant transformation or other differential diagnoses. If needed he is amenable to this recommendation. To follow-up in 1 week for Apligraf check or call sooner if he has any questions or concerns. I answered all his questions.
== END 2018-02-06 23:59 ==
LOC: WC 16:00
PROVIDERS: Family Provider Family Medicine; PCP Family Medicine; Visit Provider Podiatrist
DX: I83.028 Varicose veins of left lower extremity with ulcer other part of lower leg (principal); L97.821 Non-pressure chronic ulcer of other part of left lower leg limited to breakdown of skin; I89.0 Lymphedema, not elsewhere classified; Z86.73 Personal history of transient ischemic attack (TIA), and cerebral infarction without residual deficits; Z86.718 Personal history of other venous thrombosis and embolism
CPT/HCPCS: 15271; 29581; 99211; 99213; Q4101; G0463

== ENCOUNTER → 2018-02-14 12:12 | Outpatient (CLI) | payer OTHER, SELFPAY ==
[2018-02-14 12:51] LABS: Absolute Lymphocyte Count 1.33 X10^3/ul (0.83-4.51); Basophil# 0.02 X10^3/uL; Basophil% 0.4 % (0-1); Eosinophil# 0.08 X10^3/uL; Eosinophils% 1.6 % (0-5); Hematocrit 46.6 % (40-54); Hemoglobin 15.6 g/dl (13.0-16.5); Lymphocyte # 1.33 X10^3/ul (4.0); Lymphocyte % 26.9 % (19-41); Mean Corp Hgb Conc 33.5 g/gl (32-36); Mean Corpuscular Hgb 32.8 pg (27.0-32.0); Mean Corpuscular Volume 98.1 fL (80-94); Mean Platelet Vol. 9.4 fl (6.2-12.0); Monocyte# 0.54 X10^3/uL; Monocyte% 10.9 % (0-10); Neutrophil # 2.97 X10^3/uL (2.7-7.7); Platelet Count 240 K/mm3 (150-450); RBC Distribution Width CV 14.3 % (11.6-14.6); Red Blood Count 4.75 M/mm3 (4.6-6.2)
[2018-02-14 12:52] LABS: POSITIVE COUNT NO; POSITIVE DIFFERENTIAL NO; POSITIVE MORPHOLOGY NO
[2018-02-14 13:16] LABS: AST(SGOT) 15 U/L (15-37); Alanine Aminotransfer ALT/SGPT 23 U/L (16-61); Albumin, Serum 3.9 g/dL (3.2-5.0); Alkaline Phosphatase 105 U/L (45-117); Anion Gap 7 (5-15); BUN 18 mg/dL (7-18); BUN/Creat Ratio 21.7 RATIO (10-20); Calcium,Total 9.1 mg/dL (8.5-10.1); Chloride 103 mmol/L (98-107); Creatinine, Serum 0.83 mg/dL (0.70-1.30); EST Glomerular Filtration Rate 100 mL/min (>60); Est Glom Filt Rate - Afr Amer 121 mL/min (>60); Globulin 3.9 g/dL (2.2-4.2); Glucose 89 mg/dL (74-106); Potassium 4.2 mmol/L (3.5-5.1); Protein, Total 7.8 g/dL (6.4-8.2); Sodium Level 140 mmol/L (136-145)
[2018-02-14 14:09] LABS: Erythrocyte Sedimentation Rate 6 mm/hr (0-20)
== END ==
PROVIDERS: Family Provider Family Medicine; PCP Family Medicine; Visit Provider Podiatrist
DX: L97.909 Non-pressure chronic ulcer of unspecified part of unspecified lower leg with unspecified severity (principal); B95.62 Methicillin resistant Staphylococcus aureus infection as the cause of diseases classified elsewhere
CPT/HCPCS: 36415; 80053; 85025; 85652; 86140

== ENCOUNTER 2018-03-08 16:30 | Outpatient (RCR) | payer OTHER, SELFPAY ==
[2018-02-07 00:34] VITALS: BP 124/74; PULSE 67; RESP 16; TEMP 36.3; BMI 43.5
--- NOTE | 2018-02-08 16:45 | LES_PTH ---
PATIENT: ESTEBAN URBINA LOC: U#:[id number] AGE/SX: 62/M ROOM: RE03/08/[address]: Dr. Lizzie Estrella DPM : 1955 BED: DIS: 03/09/2018 SPEC #: [id number] RECD: 02/08/18 18:51 STATUS: JAY PALAK #: [id number] EDUARDO: 02/08/18 16:[address]: Lizzie Estrella DEPT: SURGICAL PATHOLOGY RECD BY: Juarez Smith ENTERED: 02/09/18 07:48 SP TYPE: Lesion OTHR DR: Dr. Patricia Garcia DO Tissues: Skin of leg, NOS Procedures: Special Stain Group I Surgery Specimen Level IV AFB Stain (control) GMS Stain (control) HEADER OPERATION: Left leg punch biopsy of nonhealing ulcer PRE-OP DIAGNOSIS: Nonhealing ulcer left leg, rule out malignancy vs chronic wound vs pyogenic gangrenosum TISSUE SUBMITTED: Left leg MICROSCOPIC DIAGNOSIS Left lower extremity ulcer, punch biopsy: Focal ulceration, acute and chronic inflammation and granulation tissue reaction. Special stains for acid fast bacilli and fungi are negative for organisms; matched controls are appropriate. Negative for malignancy. PRISCILA:tulio 02/10/18 COMMENT The overlying epidermis is completely denuded. MICROSCOPIC DESCRIPTION Slides are reviewed. GROSS DESCRIPTION Received in fixative is one container labeled with the patient's name and designated left lower extremity ulcer. The specimen consists of two punch biopsies of rodrigues-white skin measuring 0.1 cm in length and 0.4 cm in diameter and 0.1 cm in length and 0.3 cm in diameter. The specimen is totally submitted in one cassette. / PRISCILA:tulio 02/09/18 TC:2 CPT: 46139, 43209 x2
[2018-02-08 17:10] VITALS: BP 139/84; PULSE 78; RESP 18; TEMP 37; BMI 43.5
--- NOTE | 2018-02-08 17:44 | PN.PCM_ITS ---
(1) Ulcer of left lower extremity with fat layer exposed Status: Chronic Current Visit: Yes Code(s): L97.922 - Non-pressure chronic ulcer of unspecified part of left lower leg with fat layer exposed (2) Pyodermic gangrenosum Status: Suspected Current Visit: Yes Code(s): L88 - Pyoderma gangrenosum (3) Malignant neoplasm of skin of left lower leg Status: Suspected Current Visit: Yes Code(s): C44.709 - Unspecified malignant neoplasm of skin of left lower limb, including hip (4) History of DVT (deep vein thrombosis) Status: Chronic Current Visit: Yes Code(s): Z86.718 - Personal history of other venous thrombosis and embolism (5) Chronic pain disorder Status: Chronic Current Visit: Yes Code(s): G89.4 - Chronic pain syndrome (6) Lymphedema Status: Chronic Current Visit: Yes Code(s): I89.0 - Lymphedema, not elsewhere classified Type of Wound Date of Service: 02/09/18 Chief Complaint: Nonhealing venous ulcer of left lower extremity History of Wound: Mauricio is here today for follow up of nonhealing wound of his left lower extremity. He denies fever, chill, nausea, vomiting. He had an Apligraf applied 2 weeks ago and tolerated this product well. Progress of Wound: Stable - Physical Exam Vital Signs Temp Pulse Resp BP 98.6 F 78 18 139/84 H 02/08/18 17:10 02/08/18 17:10 02/08/18 17:10 02/08/18 17:10 General: Alert, Oriented x3, Cooperative Extremities: No cyanosis, Capillary Refill Less than 3 Seconds, No Calf Tenderness, Edema, Peripheral Pulses Normal Skin: Ulcer/ Wound - No pain, no erythema, streaking, no odor, no acute infection noted left lower extremity. Skin is atrophic. The wound beds are granular with some interspersed darker salgado and green discoloration that was debrided Wound Measurements and Assessment WC - Nurse 1 - General Ulcer Measurement Start: 02/08/18 16:54 Freq: Status: Active Protocol: Activity Type Activity Date Activity User E-Sign Co-Sign Detail Recorded Client Recorded Date Recorded By Document 02/08/18 17:10 [id number] 02/08/18 17:23 02/08/18 17:10 Wound Center Nurse 1 [Ulcer Assessment] #9 Left Medial-Superior Calf -Combined with other wound No -Current Size (cm) - Length 1.8 -Current Size (cm) - Width 1.8 -Current Size (cm) - Depth 0.1 -Total Square Cm 3.24 -Photo Taken No -Epithelialization Small 1-33% -Tunneling No -Undermining/Tunneling No -Circular Undermining No -Classification - Thickness Full Thickness without Exposed Support Structure -Exudate Amt Medium (34-66%) -Exudate Type Serosanguineous -Wound Margin Distinct, Outline Attached -Granulation Amt Medium (34-66%) -Granulation Quality Hyper- granulation Red -Slough/Fibrin Yes -Necrosis Amt Small (1-33%) -Necrotic Tissue Type Adherent Slough -Structure Exposed Fascia Fat Layer Exposed -Texture (Marie-wound Skin Appearance) Friable Localized Edema Scarring -Moisture (Marie-wound Skin Appearance No Abnormality ) -Color (Marie-wound Skin Appearance) Erythema Hemosiderin Staining -Temperature (Marie-wound Skin No Abnormality Appearance) (Pt Warm) -Tenderness on Palpation (Marie-wound Yes Skin Appearance) -Ulcer Cleansing hibiclens -Foul Odor after Cleansing No -Anesthetic Used 4% Lidocaine Solution #7- LT INFERIOR CALF CLUSTER -Combined with other wound No -Current Size (cm) - Length 2.0 -Current Size (cm) - Width 1.7 -Current Size (cm) - Depth 0.1 -Total Square Cm 3.40 -Photo Taken No -Epithelialization Small 1-33% -Tunneling No -Undermining/Tunneling No -Circular Undermining No -Classification - Thickness Full Thickness without Exposed Support Structure -Exudate Amt Medium (34-66%) -Exudate Type Serosanguineous -Wound Margin Distinct, Outline Attached -Granulation Amt Large (67-100%) -Granulation Quality Hyper- granulation Red -Slough/Fibrin Yes -Necrosis Amt Small (1-33%) -Necrotic Tissue Type Adherent Slough -Structure Exposed Fascia Fat Layer Exposed -Texture (Marie-wound Skin Appearance) Localized Edema Scarring -Moisture (Marie-wound Skin Appearance No Abnormality ) -Color (Marie-wound Skin Appearance) Erythema Hemosiderin Staining -Temperature (Marie-wound Skin No Abnormality Appearance) (Pt Warm) -Tenderness on Palpation (Marie-wound Yes Skin Appearance) -Ulcer Cleansing hibiclens -Foul Odor after Cleansing No -Anesthetic Used 4% Lidocaine Solution #8 Left lateral LE -Combined with other wound No -Current Size (cm) - Length 0.1 -Current Size (cm) - Width 0.1 -Current Size (cm) - Depth 0.1 -Total Square Cm 0.01 -Date of Last Picture (Recall this 02/08/18 field) -Photo Taken Yes -Epithelialization Large 67-100% -Tunneling No -Undermining/Tunneling No -Circular Undermining No -Classification - Thickness Full Thickness without Exposed Support Structure -Exudate Amt None Present (0 %) -Wound Margin Distinct, Outline Attached -Granulation Amt Large (67-100%) -Granulation Quality [place] -Slough/Fibrin No -Necrosis Amt None Present (0 %) -Structure Exposed None/Limited to Skin Breakdown -Texture (Marie-wound Skin Appearance) Localized Edema Scarring -Moisture (Marie-wound Skin Appearance No Abnormality ) -Color (Marie-wound Skin Appearance) Hemosiderin Staining -Temperature (Marie-wound Skin No Abnormality Appearance) (Pt Warm) -Tenderness on Palpation (Marie-wound No Skin Appearance) -Ulcer Cleansing hibiclens -Foul Odor after Cleansing No -Anesthetic Used 4% Lidocaine Solution [Edema Assessment] -Lower Limb Edema Present Yes -Left Calf (cm) 42.0 -Left Ankle (cm) 27.0 WC - Nurse 2 - General Ulcer CM Notes Start: 02/08/18 16:54 Freq: Status: Active Protocol: Activity Type Activity Date Activity User E-Sign Co-Sign Detail Recorded Client Recorded Date Recorded By Document 02/08/18 17:10 [id number] 02/08/18 17:23 02/08/18 17:10 Wound Center Nurse 2 [Procedure/Treatment] #9 Left Medial-Superior Calf -Time 17:18 -Correct Patient Yes -Correct Side, Site, Position Yes -Correct Procedure Yes -Procedure Performed Yes -Type of Procedure Debridement -Clinical Debridement Subcutaneous -Post Debridement Size (cm) - Length 1.9 -Post Debridement Size (cm) - Width 1.9 -Post Debridement Size (cm) - Depth 0.1 -Total Square Cm 3.61 -Wound/Ulcer Outcome Not Healed -Ulcer Cleansing Rinsed/ Irrigated with Saline -Foul Odor after Cleansing No -Bioengineered Tissue No -Topical Lidocaine (%) 4 -Bleeding Controlled with Pressure -Treatment Response Procedure Tolerated Well #7- LT INFERIOR CALF CLUSTER -Time 17:19 -Correct Patient Yes -Correct Side, Site, Position Yes -Correct Procedure Yes -Procedure Performed Yes -Type of Procedure Debridement -Clinical Debridement Subcutaneous -Post Debridement Size (cm) - Length 2.1 -Post Debridement Size (cm) - Width 1.8 -Post Debridement Size (cm) - Depth 0.1 -Total Square Cm 3.78 -Wound/Ulcer Outcome Not Healed -Ulcer Cleansing Rinsed/ Irrigated with Saline -Foul Odor after Cleansing No -Bioengineered Tissue No -Bleeding Controlled with Pressure -Treatment Response Procedure Tolerated Well #8 Left lateral LE -Time 17:19 -Correct Patient Yes -Correct Side, Site, Position Yes -Post Debridement Size (cm) - Length 0 -Post Debridement Size (cm) - Width 0 -Post Debridement Size (cm) - Depth 0 -Total Square Cm 0 -Wound/Ulcer Outcome Healed- Epithelialized -Ulcer Cleansing Rinsed/ Irrigated with Saline -Foul Odor after Cleansing No -Bioengineered Tissue No -Bleeding Controlled with NA -Treatment Response Procedure Tolerated Well Musculoskeletal: No Tenderness to Palpation of Joints or Extremities, Muscle Wasting, Tenderness - Pain on manipulation Neurological: Sensory exam intact to light touch and pain Psych/Mental Status: Normal Affect, Appropriate Debridement Note Post-Debridement Measurements/Treatment WC - Nurse 2 - General Ulcer CM Notes Start: 02/08/18 16:54 Freq: Status: Active Protocol: Activity Type Activity Date Activity User E-Sign Co-Sign Detail Recorded Client Recorded Date Recorded By Document 02/08/18 17:10 [id number] 02/08/18 17:23 02/08/18 17:10 Wound Center Nurse 2 #9 Left Medial-Superior Calf -Time 17:18 -Correct Patient Yes -Correct Side, Site, Position Yes -Correct Procedure Yes -Procedure Performed Yes -Type of Procedure Debridement -Clinical Debridement Subcutaneous -Post Debridement Size (cm) - Length 1.9 -Post Debridement Size (cm) - Width 1.9 -Post Debridement Size (cm) - Depth 0.1 -Total Square Cm 3.61 -Wound/Ulcer Outcome Not Healed -Ulcer Cleansing Rinsed/ Irrigated with Saline -Foul Odor after Cleansing No -Bioengineered Tissue No -Topical Lidocaine (%) 4 -Bleeding Controlled with Pressure -Treatment Response Procedure Tolerated Well #7- LT INFERIOR CALF CLUSTER -Time 17:19 -Correct Patient Yes -Correct Side, Site, Position Yes -Correct Procedure Yes -Procedure Performed Yes -Type of Procedure Debridement -Clinical Debridement Subcutaneous -Post Debridement Size (cm) - Length 2.1 -Post Debridement Size (cm) - Width 1.8 -Post Debridement Size (cm) - Depth 0.1 -Total Square Cm 3.78 -Wound/Ulcer Outcome Not Healed -Ulcer Cleansing Rinsed/ Irrigated with Saline -Foul Odor after Cleansing No -Bioengineered Tissue No -Bleeding Controlled with Pressure -Treatment Response Procedure Tolerated Well #8 Left lateral LE -Time 17:19 -Correct Patient Yes -Correct Side, Site, Position Yes -Post Debridement Size (cm) - Length 0 -Post Debridement Size (cm) - Width 0 -Post Debridement Size (cm) - Depth 0 -Total Square Cm 0 -Wound/Ulcer Outcome Healed- Epithelialized -Ulcer Cleansing Rinsed/ Irrigated with Saline -Foul Odor after Cleansing No -Bioengineered Tissue No -Bleeding Controlled with NA -Treatment Response Procedure Tolerated Well Wound debrided: leg medial (proximal wound) Laterality: Left Type of Debridement: Excisional debridement Anesthesia Used: 5% Lidocaine Gel Depth: in the subcutaneous layer Percentage of wound debrided: 100 Instrument Used: #15 blade Tissue Removed: fibrous, devitalized subcutaneous, biofilm, slough Severity: Fat Layer Exposed Amount of bleeding with debridement: Mild Bleeding Controlled with: Pressure Patient tolerated procedure well - Additional Wound Wound debrided: leg medial (distal wound) Laterality: Left Type of Debridement: Excisional debridement Anesthesia Used: 5% Lidocaine Gel Depth: in the subcutaneous layer Percentage of wound debrided: 100 Instrument Used: #15 blade Tissue Removed: fibrous, devitalized subcutaneous, biofilm, slough Severity: Fat Layer Exposed Amount of bleeding with debridement: Mild Bleeding Controlled with: Pressure Patient tolerated procedure: Patient tolerated procedure well Assessment/Plan Active Problems Ulcer of left lower extremity with fat layer exposed (Chronic) History of DVT (deep vein thrombosis) (Chronic) Chronic pain disorder (Chronic) Lymphedema (Chronic) Assessment: Venous ulcers of lower extremities left with fat layer exposed. Lymphedema. Delayed healing. Chronic pain syndrome. Rule out pyodermic gangrenosum, skin malignancy transformation, bacterial colonization Plan: Mauricio's wounds/ulcers were evaluated today. The ulcer site was debrided as noted in the clinical. I reviewed and discussed his care plan and ongoing treatment recommendations. Additional debridement and application of Apligraf will be considered next week pending biopsy/micro results as well as his clinical appearance. To change dressing at home; a dressing was applied today with aquacel. He was advised to keep this clean, dry, intact for the next week. He was advised to continue to treat his edema with tubigrips and have him continue to try and use his lymphedema pumps as much as possible. Encourage increased protein intake for improved healing; Xavier prescription was provided at a previous visit. Updated vascular studies and labs were recommend. He had a previous venous Doppler in April 2017 follow-up on his previous deep venous thrombosis in his exam also demonstrated reflux in the left popliteal vein. If lack of progress is noted I will recommend vascular reevaluation. It is noted he had previous noninvasive arterial studies in September 2015 with bilateral biphasic waveforms, right PARADISE of 1.41, left PARADISE of 1.42, white toe brachial index of 1.06 and left toe brachial index of 1.05. He had a subsequent duplex arterial study with bilateral calcifications identified with no significant occlusive disease identified. Several punch biopsies were obtained today from both wound sites and this was sent to pathology and microbiology. I answered all his questions. To return to clinic in 1 week or call sooner if he has any questions or concerns; and wound care center provider is covering.
[2018-02-17 13:27] VITALS: BP 139/81; PULSE 71; RESP 16; TEMP 35.6; BMI 43.5
--- NOTE | 2018-02-17 14:29 | PCM.WC.PN ---
(1) Ulcer of left lower extremity with fat layer exposed Status: Chronic Current Visit: Yes Code(s): L97.922 - Non-pressure chronic ulcer of unspecified part of left lower leg with fat layer exposed (2) Pyodermic gangrenosum Status: Ruled-out Current Visit: Yes Code(s): L88 - Pyoderma gangrenosum (3) Malignant neoplasm of skin of left lower leg Status: Ruled-out Current Visit: Yes Code(s): C44.709 - Unspecified malignant neoplasm of skin of left lower limb, including hip (4) History of DVT (deep vein thrombosis) Status: Chronic Current Visit: Yes Code(s): Z86.718 - Personal history of other venous thrombosis and embolism (5) Chronic pain disorder Status: Chronic Current Visit: Yes Code(s): G89.4 - Chronic pain syndrome (6) Lymphedema Status: Chronic Current Visit: Yes Code(s): I89.0 - Lymphedema, not elsewhere classified (7) MRSA (methicillin resistant staph aureus) culture positive Status: Acute Current Visit: Yes Code(s): Z22.322 - Carrier or suspected carrier of Methicillin resistant Staphylococcus aureus Type of Wound Date of Service: 02/17/18 Chief Complaint: Nonhealing venous ulcer of left lower extremity History of Wound: Mauricio is here today for follow up of nonhealing wound of his left lower extremity. He denies fever, chill, nausea, vomiting. He had a biopsy performed last week in addition to a culture to look for bacterial contamination. MRSA was identified and he was started on Bactrim. He denies diarrhea or other side effects from the oral antibiotic use. He is now seeing a chiropractor for generalized muscle pains who recommended some additional stem cell injections. He has several questions today. Progress of Wound: Improving - Physical Exam Vital Signs Temp Pulse Resp BP 96.0 F L 71 16 139/81 H 02/17/18 13:27 02/17/18 13:27 02/17/18 13:27 02/17/18 13:27 General: Alert, Oriented x3, Cooperative Extremities: No cyanosis, Capillary Refill Less than 3 Seconds, No Calf Tenderness - Negative Peace and [place] left, Diminished Peripheral Pulses, Edema - Bilateral lower extremities Skin: Ulcer/ Wound - No purulence, no erythema, streaking, no odor, no acute signs of infection. There is decreased devitalized wound tissue noted. There is no probe to deep structures. The peripheral skin is atrophic. The lateral leg wound remains fully epithelialized and healed today., - - There is no odor Wound Measurements and Assessment WC - Nurse 1 - General Ulcer Measurement Start: 02/08/18 16:54 Freq: Status: Active Protocol: Activity Type Activity Date Activity User E-Sign Co-Sign Detail Recorded Client Recorded Date Recorded By Document 02/17/18 13:27 MW [id number] 02/17/18 13:38 MW 02/17/18 13:27 Wound Center Nurse 1 [Ulcer Assessment] #9 Left Medial-Superior Calf -Combined with other wound No -Current Size (cm) - Length 1.5 -Current Size (cm) - Width 1.9 -Current Size (cm) - Depth 0.1 -Total Square Cm 2.85 -Date of Last Picture (Recall this 02/17/18 field) -Photo Taken Yes -Epithelialization None Present -Tunneling No -Undermining/Tunneling No -Circular Undermining No -Exudate Amt Small (1-33%) -Exudate Type Serosanguineous -Wound Margin Flat & Intact -Granulation Amt Medium (34-66%) -Granulation Quality Red -Slough/Fibrin Yes -Necrosis Amt Small (1-33%) -Necrotic Tissue Type Adherent Slough -Structure Exposed N/A -Texture (Marie-wound Skin Appearance) Assessed Localized Edema Scarring -Moisture (Marie-wound Skin Appearance Assessed ) Dry/Scaly -Color (Marie-wound Skin Appearance) Assessed Erythema Rubor -Temperature (Marie-wound Skin No Abnormality Appearance) (Pt Warm) -Tenderness on Palpation (Marie-wound No Skin Appearance) -Ulcer Cleansing Rinsed/ Irrigated with Saline -Foul Odor after Cleansing No -Anesthetic Used 4% Lidocaine Solution 5% Lidocaine Gel #7- LT INFERIOR CALF CLUSTER -Combined with other wound No -Current Size (cm) - Length 1.6 -Current Size (cm) - Width 1.5 -Current Size (cm) - Depth 0.1 -Total Square Cm 2.40 -Date of Last Picture (Recall this 02/17/18 field) -Photo Taken Yes -Epithelialization None Present -Tunneling No -Undermining/Tunneling No -Circular Undermining No -Exudate Amt Small (1-33%) -Exudate Type Serosanguineous -Wound Margin Flat & Intact -Granulation Amt Medium (34-66%) -Granulation Quality Red -Slough/Fibrin Yes -Necrosis Amt Small (1-33%) -Necrotic Tissue Type Adherent Slough -Structure Exposed N/A -Texture (Marie-wound Skin Appearance) Assessed Localized Edema Scarring -Moisture (Marie-wound Skin Appearance Assessed ) Dry/Scaly -Color (Marie-wound Skin Appearance) Assessed Erythema Rubor -Temperature (Marie-wound Skin No Abnormality Appearance) (Pt Warm) -Tenderness on Palpation (Marie-wound No Skin Appearance) -Ulcer Cleansing Rinsed/ Irrigated with Saline -Foul Odor after Cleansing No -Anesthetic Used 4% Lidocaine Solution 5% Lidocaine Gel [Edema Assessment] -Lower Limb Edema Present Yes -Left Calf (cm) 47.5 -Left Ankle (cm) 30.5 WC - Nurse 2 - General Ulcer CM Notes Start: 02/08/18 16:54 Freq: Status: Active Protocol: Activity Type Activity Date Activity User E-Sign Co-Sign Detail Recorded Client Recorded Date Recorded By Document 02/17/18 13:42 [id number] 02/17/18 14:01 02/17/18 13:42 Wound Center Nurse 2 [Procedure/Treatment] #9 Left Medial-Superior Calf -Time 13:59 -Correct Patient Yes -Correct Side, Site, Position Yes -Correct Procedure Yes -Procedure Performed Yes -Type of Procedure Debridement -Clinical Debridement Subcutaneous -Post Debridement Size (cm) - Length 1.6 -Post Debridement Size (cm) - Width 2.0 -Post Debridement Size (cm) - Depth 0.1 -Total Square Cm 3.20 -Wound/Ulcer Outcome Not Healed -Ulcer Cleansing Rinsed/ Irrigated with Saline -Foul Odor after Cleansing No -Bioengineered Tissue Yes -Type of bioengineered Tissue Apligraf -Expiration Date 02/17/18 -Product Lot Number [id number] -Percent Used 50 -Saline Lot Number [id number] -Topical Lidocaine (%) 5 -Bleeding Controlled with Pressure -Treatment Response Procedure Tolerated Well #7- LT INFERIOR CALF CLUSTER -Time 13:59 -Correct Patient Yes -Correct Side, Site, Position Yes -Correct Procedure Yes -Procedure Performed Yes -Type of Procedure Debridement -Clinical Debridement Subcutaneous -Post Debridement Size (cm) - Length 1.7 -Post Debridement Size (cm) - Width 1.5 -Post Debridement Size (cm) - Depth 0.1 -Total Square Cm 2.55 -Wound/Ulcer Outcome Not Healed -Ulcer Cleansing Rinsed/ Irrigated with Saline -Foul Odor after Cleansing No -Bioengineered Tissue Yes -Type of bioengineered Tissue Apligraf -Expiration Date 02/17/18 -Product Lot Number [id number] -Percent Used 50 -Saline Lot Number [id number] -Topical Lidocaine (%) 5 -Bleeding Controlled with Pressure -Treatment Response Procedure Tolerated Well [See Physician Procedure note for Specifics] Pain Scale: 0-10 Numeric [Pain] -Is Patient Pain Free? Yes Musculoskeletal: No Tenderness to Palpation of Joints or Extremities, Muscle Wasting, - - Decreased pain with wound manipulation Lymphatic: - - Edema bilateral lower extremities Neurological: Sensory exam intact to light touch and pain Psych/Mental Status: Normal Affect, Appropriate Debridement Note Post-Debridement Measurements/Treatment WC - Nurse 2 - General Ulcer CM Notes Start: 02/08/18 16:54 Freq: Status: Active Protocol: Activity Type Activity Date Activity User E-Sign Co-Sign Detail Recorded Client Recorded Date Recorded By Document 02/08/18 17:10 [id number] 02/08/18 17:23 TM Document 02/17/18 13:42 [id number] 02/17/18 14:01 TM 02/08/18 02/17/18 17:10 13:42 Pain Scale: 0-10 Numeric Is Patient Pain Free? Yes Wound Center Nurse 2 #9 Left Medial-Superior Calf -Time 17:18 13:59 -Correct Patient Yes Yes -Correct Side, Site, Position Yes Yes -Correct Procedure Yes Yes -Procedure Performed Yes Yes -Type of Procedure Debridement Debridement -Clinical Debridement Subcutaneous Subcutaneous -Post Debridement Size (cm) - Length 1.9 1.6 -Post Debridement Size (cm) - Width 1.9 2.0 -Post Debridement Size (cm) - Depth 0.1 0.1 -Total Square Cm 3.61 3.20 -Wound/Ulcer Outcome Not Healed Not Healed -Ulcer Cleansing Rinsed/ Rinsed/ Irrigated with Irrigated with Saline Saline -Foul Odor after Cleansing No No -Bioengineered Tissue No Yes -Type of bioengineered Tissue Apligraf -Expiration Date 02/17/18 -Product Lot Number [id number] -Percent Used 50 -Saline Lot Number [id number] -Topical Lidocaine (%) 4 5 -Bleeding Controlled with Pressure Pressure -Treatment Response Procedure Procedure Tolerated Well Tolerated Well #7- LT INFERIOR CALF CLUSTER -Time 17:19 13:59 -Correct Patient Yes Yes -Correct Side, Site, Position Yes Yes -Correct Procedure Yes Yes -Procedure Performed Yes Yes -Type of Procedure Debridement Debridement -Clinical Debridement Subcutaneous Subcutaneous -Post Debridement Size (cm) - Length 2.1 1.7 -Post Debridement Size (cm) - Width 1.8 1.5 -Post Debridement Size (cm) - Depth 0.1 0.1 -Total Square Cm 3.78 2.55 -Wound/Ulcer Outcome Not Healed Not Healed -Ulcer Cleansing Rinsed/ Rinsed/ Irrigated with Irrigated with Saline Saline -Foul Odor after Cleansing No No -Bioengineered Tissue No Yes -Type of bioengineered Tissue Apligraf -Expiration Date 02/17/18 -Product Lot Number [id number] -Percent Used 50 -Saline Lot Number [id number] -Topical Lidocaine (%) 5 -Bleeding Controlled with Pressure Pressure -Treatment Response Procedure Procedure Tolerated Well Tolerated Well #8 Left lateral LE -Time 17:19 -Correct Patient Yes -Correct Side, Site, Position Yes -Post Debridement Size (cm) - Length 0 -Post Debridement Size (cm) - Width 0 -Post Debridement Size (cm) - Depth 0 -Total Square Cm 0 -Wound/Ulcer Outcome Healed- Epithelialized -Ulcer Cleansing Rinsed/ Irrigated with Saline -Foul Odor after Cleansing No -Bioengineered Tissue No -Bleeding Controlled with NA -Treatment Response Procedure Tolerated Well Wound debrided: leg (proximal wound) Laterality: Left Type of Debridement: Excisional debridement Anesthesia Used: 5% Lidocaine Gel Depth: in the subcutaneous layer Percentage of wound debrided: 100 Instrument Used: #15 blade Tissue Removed: fibrous, devitalized subcutaneous, biofilm, slough Severity: Fat Layer Exposed Amount of bleeding with debridement: Mild Bleeding Controlled with: Pressure Patient tolerated procedure well - Additional Wound Wound debrided: leg (inferior site) Laterality: Left Type of Debridement: Excisional debridement Anesthesia Used: 5% Lidocaine Gel Depth: in the subcutaneous layer Percentage of wound debrided: 100 Instrument Used: #15 blade Tissue Removed: fibrous, devitalized subcutaneous, biofilm, slough Severity: Fat Layer Exposed Amount of bleeding with debridement: Mild Bleeding Controlled with: Pressure Patient tolerated procedure: Patient tolerated procedure well Assessment/Plan Active Problems Ulcer of left lower extremity with fat layer exposed (Chronic) MRSA (methicillin resistant staph aureus) culture positive (Acute) History of DVT (deep vein thrombosis) (Chronic) Chronic pain disorder (Chronic) Lymphedema (Chronic) Assessment: Venous ulcers of lower extremities left with fat layer exposed (2). Lymphedema. Delayed healing. Chronic pain syndrome. MRSA positive culture Plan: Mauricio's wounds/ulcers were evaluated today. The ulcer site was debrided as noted in the clinical. I reviewed and discussed his care plan and ongoing treatment recommendations. Additional debridement and application of Apligraf was discussed today verbal consent was obtained. This was applied according to standard protocol after scalpel perforation. This was secured in place with a wound veil and Steri-Strips. He tolerated this well. Prior to application, he declines antimicrobial wipe was used to cleanse the leg and the peripheral area. His wound biopsy did not demonstrate p. Skin cancer. His culture was positive for MRSA and he was started on gangrenosum or Bactrim. His CBC and CMP were reviewed without any gross abnormalities. His ESR was 6 and C-reactive protein was 24.9. This will be monitored. Refill for Bactrim was provided today for an additional week. Keep clean dry and intact until follow-up next week. I recommend progression to advanced wound care product, epi fix. Preauthorization will be initiated. His previous preauthorization would be by the time the desired application date arrives. He was advised to continue to treat his edema with tubigrips and have him continue to try and use his lymphedema pumps as much as possible. Compliance was discussed. Encourage increased protein intake for improved healing; Xavier prescription was provided at a previous visit. Updated vascular studies and labs were recommend. He had a previous venous Doppler in April 2017 follow-up on his previous deep venous thrombosis in his exam also demonstrated reflux in the left popliteal vein. If lack of progress is noted I will recommend vascular reevaluation. It is noted he had previous noninvasive arterial studies in September 2015 with bilateral biphasic waveforms, right PARADISE of 1.41, left PARADISE of 1.42, white toe brachial index of 1.06 and left toe brachial index of 1.05. He had a subsequent duplex arterial study with bilateral calcifications identified with no significant occlusive disease identified. I answered all his questions. To return to clinic in 1 week or call sooner if he has any questions or concerns.
--- NOTE | 2018-02-17 14:36 | PN.PCM_ITS ---
(1) Ulcer of left lower extremity with fat layer exposed Status: Chronic Current Visit: Yes Code(s): L97.922 - Non-pressure chronic ulcer of unspecified part of left lower leg with fat layer exposed (2) Pyodermic gangrenosum Status: Ruled-out Current Visit: Yes Code(s): L88 - Pyoderma gangrenosum (3) Malignant neoplasm of skin of left lower leg Status: Ruled-out Current Visit: Yes Code(s): C44.709 - Unspecified malignant neoplasm of skin of left lower limb, including hip (4) History of DVT (deep vein thrombosis) Status: Chronic Current Visit: Yes Code(s): Z86.718 - Personal history of other venous thrombosis and embolism (5) Chronic pain disorder Status: Chronic Current Visit: Yes Code(s): G89.4 - Chronic pain syndrome (6) Lymphedema Status: Chronic Current Visit: Yes Code(s): I89.0 - Lymphedema, not elsewhere classified (7) MRSA (methicillin resistant staph aureus) culture positive Status: Acute Current Visit: Yes Code(s): Z22.322 - Carrier or suspected carrier of Methicillin resistant Staphylococcus aureus Type of Wound Date of Service: 02/17/18 Chief Complaint: Nonhealing venous ulcer of left lower extremity History of Wound: Mauricio is here today for follow up of nonhealing wound of his left lower extremity. He denies fever, chill, nausea, vomiting. He had a biopsy performed last week in addition to a culture to look for bacterial contamination. MRSA was identified and he was started on Bactrim. He denies diarrhea or other side effects from the oral antibiotic use. He is now seeing a chiropractor for generalized muscle pains who recommended some additional stem cell injections. He has several questions today. Progress of Wound: Improving - Physical Exam Vital Signs Temp Pulse Resp BP 96.0 F L 71 16 139/81 H 02/17/18 13:27 02/17/18 13:27 02/17/18 13:27 02/17/18 13:27 General: Alert, Oriented x3, Cooperative Extremities: No cyanosis, Capillary Refill Less than 3 Seconds, No Calf Tenderness - Negative Peace and [place] left, Diminished Peripheral Pulses, Edema - Bilateral lower extremities Skin: Ulcer/ Wound - No purulence, no erythema, streaking, no odor, no acute signs of infection. There is decreased devitalized wound tissue noted. There is no probe to deep structures. The peripheral skin is atrophic. The lateral leg wound remains fully epithelialized and healed today., - - There is no odor Wound Measurements and Assessment WC - Nurse 1 - General Ulcer Measurement Start: 02/08/18 16:54 Freq: Status: Active Protocol: Activity Type Activity Date Activity User E-Sign Co-Sign Detail Recorded Client Recorded Date Recorded By Document 02/17/18 13:27 MW [id number] 02/17/18 13:38 MW 02/17/18 13:27 Wound Center Nurse 1 [Ulcer Assessment] #9 Left Medial-Superior Calf -Combined with other wound No -Current Size (cm) - Length 1.5 -Current Size (cm) - Width 1.9 -Current Size (cm) - Depth 0.1 -Total Square Cm 2.85 -Date of Last Picture (Recall this 02/17/18 field) -Photo Taken Yes -Epithelialization None Present -Tunneling No -Undermining/Tunneling No -Circular Undermining No -Exudate Amt Small (1-33%) -Exudate Type Serosanguineous -Wound Margin Flat & Intact -Granulation Amt Medium (34-66%) -Granulation Quality Red -Slough/Fibrin Yes -Necrosis Amt Small (1-33%) -Necrotic Tissue Type Adherent Slough -Structure Exposed N/A -Texture (Marie-wound Skin Appearance) Assessed Localized Edema Scarring -Moisture (Marie-wound Skin Appearance Assessed ) Dry/Scaly -Color (Marie-wound Skin Appearance) Assessed Erythema Rubor -Temperature (Marie-wound Skin No Abnormality Appearance) (Pt Warm) -Tenderness on Palpation (Marie-wound No Skin Appearance) -Ulcer Cleansing Rinsed/ Irrigated with Saline -Foul Odor after Cleansing No -Anesthetic Used 4% Lidocaine Solution 5% Lidocaine Gel #7- LT INFERIOR CALF CLUSTER -Combined with other wound No -Current Size (cm) - Length 1.6 -Current Size (cm) - Width 1.5 -Current Size (cm) - Depth 0.1 -Total Square Cm 2.40 -Date of Last Picture (Recall this 02/17/18 field) -Photo Taken Yes -Epithelialization None Present -Tunneling No -Undermining/Tunneling No -Circular Undermining No -Exudate Amt Small (1-33%) -Exudate Type Serosanguineous -Wound Margin Flat & Intact -Granulation Amt Medium (34-66%) -Granulation Quality Red -Slough/Fibrin Yes -Necrosis Amt Small (1-33%) -Necrotic Tissue Type Adherent Slough -Structure Exposed N/A -Texture (Marie-wound Skin Appearance) Assessed Localized Edema Scarring -Moisture (Marie-wound Skin Appearance Assessed ) Dry/Scaly -Color (Marie-wound Skin Appearance) Assessed Erythema Rubor -Temperature (Marie-wound Skin No Abnormality Appearance) (Pt Warm) -Tenderness on Palpation (Marie-wound No Skin Appearance) -Ulcer Cleansing Rinsed/ Irrigated with Saline -Foul Odor after Cleansing No -Anesthetic Used 4% Lidocaine Solution 5% Lidocaine Gel [Edema Assessment] -Lower Limb Edema Present Yes -Left Calf (cm) 47.5 -Left Ankle (cm) 30.5 WC - Nurse 2 - General Ulcer CM Notes Start: 02/08/18 16:54 Freq: Status: Active Protocol: Activity Type Activity Date Activity User E-Sign Co-Sign Detail Recorded Client Recorded Date Recorded By Document 02/17/18 13:42 [id number] 02/17/18 14:01 02/17/18 13:42 Wound Center Nurse 2 [Procedure/Treatment] #9 Left Medial-Superior Calf -Time 13:59 -Correct Patient Yes -Correct Side, Site, Position Yes -Correct Procedure Yes -Procedure Performed Yes -Type of Procedure Debridement -Clinical Debridement Subcutaneous -Post Debridement Size (cm) - Length 1.6 -Post Debridement Size (cm) - Width 2.0 -Post Debridement Size (cm) - Depth 0.1 -Total Square Cm 3.20 -Wound/Ulcer Outcome Not Healed -Ulcer Cleansing Rinsed/ Irrigated with Saline -Foul Odor after Cleansing No -Bioengineered Tissue Yes -Type of bioengineered Tissue Apligraf -Expiration Date 02/17/18 -Product Lot Number [id number] -Percent Used 50 -Saline Lot Number [id number] -Topical Lidocaine (%) 5 -Bleeding Controlled with Pressure -Treatment Response Procedure Tolerated Well #7- LT INFERIOR CALF CLUSTER -Time 13:59 -Correct Patient Yes -Correct Side, Site, Position Yes -Correct Procedure Yes -Procedure Performed Yes -Type of Procedure Debridement -Clinical Debridement Subcutaneous -Post Debridement Size (cm) - Length 1.7 -Post Debridement Size (cm) - Width 1.5 -Post Debridement Size (cm) - Depth 0.1 -Total Square Cm 2.55 -Wound/Ulcer Outcome Not Healed -Ulcer Cleansing Rinsed/ Irrigated with Saline -Foul Odor after Cleansing No -Bioengineered Tissue Yes -Type of bioengineered Tissue Apligraf -Expiration Date 02/17/18 -Product Lot Number [id number] -Percent Used 50 -Saline Lot Number [id number] -Topical Lidocaine (%) 5 -Bleeding Controlled with Pressure -Treatment Response Procedure Tolerated Well [See Physician Procedure note for Specifics] Pain Scale: 0-10 Numeric [Pain] -Is Patient Pain Free? Yes Musculoskeletal: No Tenderness to Palpation of Joints or Extremities, Muscle Wasting, - - Decreased pain with wound manipulation Lymphatic: - - Edema bilateral lower extremities Neurological: Sensory exam intact to light touch and pain Psych/Mental Status: Normal Affect, Appropriate Debridement Note Post-Debridement Measurements/Treatment WC - Nurse 2 - General Ulcer CM Notes Start: 02/08/18 16:54 Freq: Status: Active Protocol: Activity Type Activity Date Activity User E-Sign Co-Sign Detail Recorded Client Recorded Date Recorded By Document 02/08/18 17:10 [id number] 02/08/18 17:23 TM Document 02/17/18 13:42 [id number] 02/17/18 14:01 TM 02/08/18 02/17/18 17:10 13:42 Pain Scale: 0-10 Numeric Is Patient Pain Free? Yes Wound Center Nurse 2 #9 Left Medial-Superior Calf -Time 17:18 13:59 -Correct Patient Yes Yes -Correct Side, Site, Position Yes Yes -Correct Procedure Yes Yes -Procedure Performed Yes Yes -Type of Procedure Debridement Debridement -Clinical Debridement Subcutaneous Subcutaneous -Post Debridement Size (cm) - Length 1.9 1.6 -Post Debridement Size (cm) - Width 1.9 2.0 -Post Debridement Size (cm) - Depth 0.1 0.1 -Total Square Cm 3.61 3.20 -Wound/Ulcer Outcome Not Healed Not Healed -Ulcer Cleansing Rinsed/ Rinsed/ Irrigated with Irrigated with Saline Saline -Foul Odor after Cleansing No No -Bioengineered Tissue No Yes -Type of bioengineered Tissue Apligraf -Expiration Date 02/17/18 -Product Lot Number [id number] -Percent Used 50 -Saline Lot Number [id number] -Topical Lidocaine (%) 4 5 -Bleeding Controlled with Pressure Pressure -Treatment Response Procedure Procedure Tolerated Well Tolerated Well #7- LT INFERIOR CALF CLUSTER -Time 17:19 13:59 -Correct Patient Yes Yes -Correct Side, Site, Position Yes Yes -Correct Procedure Yes Yes -Procedure Performed Yes Yes -Type of Procedure Debridement Debridement -Clinical Debridement Subcutaneous Subcutaneous -Post Debridement Size (cm) - Length 2.1 1.7 -Post Debridement Size (cm) - Width 1.8 1.5 -Post Debridement Size (cm) - Depth 0.1 0.1 -Total Square Cm 3.78 2.55 -Wound/Ulcer Outcome Not Healed Not Healed -Ulcer Cleansing Rinsed/ Rinsed/ Irrigated with Irrigated with Saline Saline -Foul Odor after Cleansing No No -Bioengineered Tissue No Yes -Type of bioengineered Tissue Apligraf -Expiration Date 02/17/18 -Product Lot Number [id number] -Percent Used 50 -Saline Lot Number [id number] -Topical Lidocaine (%) 5 -Bleeding Controlled with Pressure Pressure -Treatment Response Procedure Procedure Tolerated Well Tolerated Well #8 Left lateral LE -Time 17:19 -Correct Patient Yes -Correct Side, Site, Position Yes -Post Debridement Size (cm) - Length 0 -Post Debridement Size (cm) - Width 0 -Post Debridement Size (cm) - Depth 0 -Total Square Cm 0 -Wound/Ulcer Outcome Healed- Epithelialized -Ulcer Cleansing Rinsed/ Irrigated with Saline -Foul Odor after Cleansing No -Bioengineered Tissue No -Bleeding Controlled with NA -Treatment Response Procedure Tolerated Well Wound debrided: leg (proximal wound) Laterality: Left Type of Debridement: Excisional debridement Anesthesia Used: 5% Lidocaine Gel Depth: in the subcutaneous layer Percentage of wound debrided: 100 Instrument Used: #15 blade Tissue Removed: fibrous, devitalized subcutaneous, biofilm, slough Severity: Fat Layer Exposed Amount of bleeding with debridement: Mild Bleeding Controlled with: Pressure Patient tolerated procedure well - Additional Wound Wound debrided: leg (inferior site) Laterality: Left Type of Debridement: Excisional debridement Anesthesia Used: 5% Lidocaine Gel Depth: in the subcutaneous layer Percentage of wound debrided: 100 Instrument Used: #15 blade Tissue Removed: fibrous, devitalized subcutaneous, biofilm, slough Severity: Fat Layer Exposed Amount of bleeding with debridement: Mild Bleeding Controlled with: Pressure Patient tolerated procedure: Patient tolerated procedure well Assessment/Plan Active Problems Ulcer of left lower extremity with fat layer exposed (Chronic) MRSA (methicillin resistant staph aureus) culture positive (Acute) History of DVT (deep vein thrombosis) (Chronic) Chronic pain disorder (Chronic) Lymphedema (Chronic) Assessment: Venous ulcers of lower extremities left with fat layer exposed (2). Lymphedema. Delayed healing. Chronic pain syndrome. MRSA positive culture Plan: Mauricio's wounds/ulcers were evaluated today. The ulcer site was debrided as noted in the clinical. I reviewed and discussed his care plan and ongoing treatment recommendations. Additional debridement and application of Apligraf was discussed today verbal consent was obtained. This was applied according to standard protocol after scalpel perforation. This was secured in place with a wound veil and Steri-Strips. He tolerated this well. Prior to application, he declines antimicrobial wipe was used to cleanse the leg and the peripheral area. His wound biopsy did not demonstrate p. Skin cancer. His culture was positive for MRSA and he was started on gangrenosum or Bactrim. His CBC and CMP were reviewed without any gross abnormalities. His ESR was 6 and C-reactive protein was 24.9. This will be monitored. Refill for Bactrim was provided today for an additional week. Keep clean dry and intact until follow-up next week. I recommend progression to advanced wound care product, epi fix. Preauthorization will be initiated. His previous preauthorization would be by the time the desired application date arrives. He was advised to continue to treat his edema with tubigrips and have him continue to try and use his lymphedema pumps as much as possible. Compliance was discussed. Encourage increased protein intake for improved healing; Xavier prescription was provided at a previous visit. Updated vascular studies and labs were recommend. He had a previous venous Doppler in April 2017 follow-up on his previous deep venous thrombosis in his exam also demonstrated reflux in the left popliteal vein. If lack of progress is noted I will recommend vascular reevaluation. It is noted he had previous noninvasive arterial studies in September 2015 with bilateral biphasic waveforms, right PARADISE of 1.41, left PARADISE of 1.42, white toe brachial index of 1.06 and left toe brachial index of 1.05. He had a subsequent duplex arterial study with bilateral calcifications identified with no significant occlusive disease identified. I answered all his questions. To return to clinic in 1 week or call sooner if he has any questions or concerns.
[2018-02-22 16:21] VITALS: BP 115/69; PULSE 73; RESP 16; TEMP 36.1; BMI 43.5
--- NOTE | 2018-02-22 17:28 | PN.PCM_ITS ---
(1) Ulcer of left lower extremity with fat layer exposed Status: Chronic Current Visit: Yes Code(s): L97.922 - Non-pressure chronic ulcer of unspecified part of left lower leg with fat layer exposed (2) History of DVT (deep vein thrombosis) Status: Chronic Current Visit: Yes Code(s): Z86.718 - Personal history of other venous thrombosis and embolism (3) Chronic pain disorder Status: Chronic Current Visit: Yes Code(s): G89.4 - Chronic pain syndrome (4) Lymphedema Status: Chronic Current Visit: Yes Code(s): I89.0 - Lymphedema, not elsewhere classified (5) MRSA (methicillin resistant staph aureus) culture positive Status: Acute Current Visit: Yes Code(s): Z22.322 - Carrier or suspected carrier of Methicillin resistant Staphylococcus aureus Type of Wound Date of Service: 02/22/18 Chief Complaint: Nonhealing venous ulcer of left lower extremity History of Wound: Mauricio is here today for follow up of nonhealing wound of his left lower extremity. He denies fever, chill, nausea, vomiting. He has been taking Bactrim for his MRSA wound contamination and relates his wound odor has stopped. His leg pain is also decreased. He is kept his apligraft intact and in place as advised. He is now seeing a chiropractor for generalized muscle pains who recommended some additional stem cell injections. He reports he cannot move forward with this at this time because the cost was over $8000. Progress of Wound: Stable - Physical Exam Vital Signs Temp Pulse Resp BP 96.9 F L 73 16 115/69 02/22/18 16:21 02/22/18 16:21 02/22/18 16:21 02/22/18 16:21 General: Alert, Oriented x3, Cooperative Extremities: No cyanosis, Capillary Refill Less than 3 Seconds, No Calf Tenderness, Diminished Peripheral Pulses, Edema Skin: Ulcer/ Wound - No purulence, no erythema, streaking, no odor, no infection left leg. The skin is atrophic. The Apligraf with overlying wound veil and Steri-Strips remain intact. Wound Measurements and Assessment WC - Nurse 1 - General Ulcer Measurement Start: 02/08/18 16:54 Freq: Status: Active Protocol: Activity Type Activity Date Activity User E-Sign Co-Sign Detail Recorded Client Recorded Date Recorded By Document 02/22/18 16:21 DL [id number] 02/22/18 16:26 DL 02/22/18 16:21 Wound Center Nurse 1 [Ulcer Assessment] #9 Left Medial-Superior Calf -Combined with other wound No [Edema Assessment] -Lower Limb Edema Present Yes -Left Calf (cm) 46.0 -Left Ankle (cm) 30.5 - Nurse 2 - General Ulcer CM Notes Start: 02/08/18 16:54 Freq: Status: Active Protocol: Activity Type Activity Date Activity User E-Sign Co-Sign Detail Recorded Client Recorded Date Recorded By Document 02/22/18 16:50 JS [id number] 02/22/18 16:51 JS 02/22/18 16:50 Wound Center Nurse 2 [Procedure/Treatment] #9 Left Medial-Superior Calf -Time 16:50 -Correct Patient Yes -Correct Side, Site, Position Yes -Correct Procedure Yes -Procedure Performed No -Wound/Ulcer Outcome Not Healed -Ulcer Cleansing Rinsed/ Irrigated with Saline -Foul Odor after Cleansing No -Bioengineered Tissue No -Bleeding Controlled with NA #7- LT INFERIOR CALF CLUSTER -Time 16:50 -Correct Patient Yes -Correct Side, Site, Position Yes -Correct Procedure Yes -Procedure Performed No -Wound/Ulcer Outcome Not Healed -Ulcer Cleansing Rinsed/ Irrigated with Saline -Foul Odor after Cleansing No -Bioengineered Tissue No -Bleeding Controlled with NA [See Physician Procedure note for Specifics] Pain Scale: 0-10 Numeric [Pain] -Is Patient Pain Free? Yes Musculoskeletal: No Tenderness to Palpation of Joints or Extremities, Muscle Wasting, Tenderness - No wound manipulation tenderness today on palpation Neurological: - - Altered sensation light touch left lower extremity Psych/Mental Status: Normal Affect, Appropriate Debridement Note Post-Debridement Measurements/Treatment - Nurse 2 - General Ulcer CM Notes Start: 02/08/18 16:54 Freq: Status: Active Protocol: Activity Type Activity Date Activity User E-Sign Co-Sign Detail Recorded Client Recorded Date Recorded By Document 02/08/18 17:10 TM [id number] 02/08/18 17:23 TM Document 02/17/18 13:42 TM [id number] 02/17/18 14:01 TM Document 02/22/18 16:50 JS [id number] 02/22/18 16:51 JS 02/08/18 02/17/1818 17:10 13:42 16:50 Pain Scale: 0-10 Numeric Is Patient Pain Free? Yes Yes Wound Center Nurse 2 #9 Left Medial-Superior Calf -Time 17:18 13:59 16:50 -Correct Patient Yes Yes Yes -Correct Side, Site, Position Yes Yes Yes -Correct Procedure Yes Yes Yes -Procedure Performed Yes Yes No -Type of Procedure Debridement Debridement -Clinical Debridement Subcutaneous Subcutaneous -Post Debridement Size (cm) - Length 1.9 1.6 -Post Debridement Size (cm) - Width 1.9 2.0 -Post Debridement Size (cm) - Depth 0.1 0.1 -Total Square Cm 3.61 3.20 -Wound/Ulcer Outcome Not Healed Not Healed Not Healed -Ulcer Cleansing Rinsed/ Rinsed/ Rinsed/ Irrigated with Irrigated with Irrigated with Saline Saline Saline -Foul Odor after Cleansing No No No -Bioengineered Tissue No Yes No -Type of bioengineered Tissue Apligraf -Expiration Date 02/17/18 -Product Lot Number [id number] -Percent Used 50 -Saline Lot Number [id number] -Topical Lidocaine (%) 4 5 -Bleeding Controlled with Pressure Pressure NA -Treatment Response Procedure Procedure Tolerated Well Tolerated Well #7- LT INFERIOR CALF CLUSTER -Time 17:19 13:59 16:50 -Correct Patient Yes Yes Yes -Correct Side, Site, Position Yes Yes Yes -Correct Procedure Yes Yes Yes -Procedure Performed Yes Yes No -Type of Procedure Debridement Debridement -Clinical Debridement Subcutaneous Subcutaneous -Post Debridement Size (cm) - Length 2.1 1.7 -Post Debridement Size (cm) - Width 1.8 1.5 -Post Debridement Size (cm) - Depth 0.1 0.1 -Total Square Cm 3.78 2.55 -Wound/Ulcer Outcome Not Healed Not Healed Not Healed -Ulcer Cleansing Rinsed/ Rinsed/ Rinsed/ Irrigated with Irrigated with Irrigated with Saline Saline Saline -Foul Odor after Cleansing No No No -Bioengineered Tissue No Yes No -Type of bioengineered Tissue Apligraf -Expiration Date 02/17/18 -Product Lot Number [id number] -Percent Used 50 -Saline Lot Number [id number] -Topical Lidocaine (%) 5 -Bleeding Controlled with Pressure Pressure NA -Treatment Response Procedure Procedure Tolerated Well Tolerated Well #8 Left lateral LE -Time 17:19 -Correct Patient Yes -Correct Side, Site, Position Yes -Post Debridement Size (cm) - Length 0 -Post Debridement Size (cm) - Width 0 -Post Debridement Size (cm) - Depth 0 -Total Square Cm 0 -Wound/Ulcer Outcome Healed- Epithelialized -Ulcer Cleansing Rinsed/ Irrigated with Saline -Foul Odor after Cleansing No -Bioengineered Tissue No -Bleeding Controlled with NA -Treatment Response Procedure Tolerated Well Wound debrided: leg proximal and distal wounds Laterality: Left No debridement was completed today - The Apligraf was kept intact and is continuing to incorporate. Additional advanced wound care product application debridement will be reconsidered next week. Assessment/Plan Active Problems Ulcer of left lower extremity with fat layer exposed (Chronic) MRSA (methicillin resistant staph aureus) culture positive (Acute) History of DVT (deep vein thrombosis) (Chronic) Chronic pain disorder (Chronic) Lymphedema (Chronic) Assessment: Venous ulcers of lower extremities left with fat layer exposed (2). Lymphedema. Delayed healing. Chronic pain syndrome. MRSA positive culture Plan: Mauricio's wounds/ulcers were evaluated today. Apligraf was kept in place with wound veil and Steri-Strips. A secondary dressings were applied. He was advised to keep this clean dry and intact until follow-up visit next week. His wound is significantly decreased in size and I recommend application of advanced wound care product, epi fix. I reviewe reviewed his pathology results which did not demonstrate a malignancy. His culture was positive for MRSA and he was started Bactrim; to complete the recommended treatment course. His CBC and CMP were reviewed without any gross abnormalities. His ESR was 6 and C- reactive protein was 24.9. Keep clean dry and intact until follow-up next week. His previous epi fix preauthorization would be by the time the desired application date arrives. He was advised to continue to treat his edema with tubigrips and have him continue to try and use his lymphedema pumps as much as possible. Compliance was discussed. Encourage increased protein intake for improved healing; Xavier prescription was provided at a previous visit. Updated vascular studies and labs were recommend. He had a previous venous Doppler in April 2017 follow-up on his previous deep venous thrombosis in his exam also demonstrated reflux in the left popliteal vein. If lack of progress is noted I will recommend vascular reevaluation. It is noted he had previous noninvasive arterial studies in September 2015 with bilateral biphasic waveforms, right PARADISE of 1.41, left PARADISE of 1.42, white toe brachial index of 1.06 and left toe brachial index of 1.05. He had a subsequent duplex arterial study with bilateral calcifications identified with no significant occlusive disease identified. I answered all his questions. To return to clinic in 1 week or call sooner if he has any questions or concerns.
[2018-03-01 16:39] VITALS: BP 122/79; PULSE 81; RESP 18; TEMP 35.7; BMI 43.5
--- NOTE | 2018-03-01 17:03 | PCM.WC.PN ---
(1) Ulcer of left lower extremity with fat layer exposed Status: Chronic Current Visit: Yes Code(s): L97.922 - Non-pressure chronic ulcer of unspecified part of left lower leg with fat layer exposed (2) History of DVT (deep vein thrombosis) Status: Chronic Current Visit: Yes Code(s): Z86.718 - Personal history of other venous thrombosis and embolism (3) Chronic pain disorder Status: Chronic Current Visit: Yes Code(s): G89.4 - Chronic pain syndrome (4) Lymphedema Status: Chronic Current Visit: Yes Code(s): I89.0 - Lymphedema, not elsewhere classified (5) MRSA (methicillin resistant staph aureus) culture positive Status: Acute Current Visit: Yes Code(s): Z22.322 - Carrier or suspected carrier of Methicillin resistant Staphylococcus aureus (6) Venous insufficiency Status: Chronic Current Visit: Yes Code(s): I87.2 - Venous insufficiency (chronic) (peripheral) Type of Wound Date of Service: 03/01/18 Chief Complaint: Nonhealing venous ulcer of left lower extremity History of Wound: Mauricio is here today for follow up of nonhealing wound of his left lower extremity. He denies fever, chill, nausea, vomiting. He has been taking Bactrim for his MRSA wound contamination and relates his wound odor has stopped. He is completed this course. His leg pain is also decreased, however this returns intermittently. He is kept his apligraft intact and in place as advised. He is now seeing a chiropractor and has secondary adjunctive laser application to remove the toxins from his body. Progress of Wound: Improving - Physical Exam Vital Signs Temp Pulse Resp BP 96.2 F L 81 18 122/79 H 03/01/18 16:39 03/01/18 16:39 03/01/18 16:39 03/01/18 16:39 General: Alert, Oriented x3, Cooperative Extremities: No cyanosis, Capillary Refill Less than 3 Seconds, No Calf Tenderness, Diminished Peripheral Pulses, Edema Skin: Ulcer/ Wound - No purulence, no erythema, streaking, no odor, no acute infection. His skin is atrophic and hairless. He has decreased devitalized tissue in the wound size has significantly decreased. Peripheral epithelialization is noted. Wound Measurements and Assessment WC - Nurse 1 - General Ulcer Measurement Start: 02/08/18 16:54 Freq: Status: Active Protocol: Activity Type Activity Date Activity User E-Sign Co-Sign Detail Recorded Client Recorded Date Recorded By Document 03/01/18 16:39 RB [id number] 03/01/18 16:46 RB 03/01/18 16:39 Wound Center Nurse 1 [Ulcer Assessment] #9 Left Medial-Superior Calf -Combined with other wound No -Current Size (cm) - Length 2.1 -Current Size (cm) - Width 1.1 -Current Size (cm) - Depth 0.1 -Total Square Cm 2.31 -Photo Taken No -Epithelialization Small 1-33% -Tunneling No -Undermining/Tunneling No -Circular Undermining No -Exudate Amt Small (1-33%) -Exudate Type Serosanguineous -Wound Margin Distinct, Outline Attached -Granulation Amt Small (1-33%) -Granulation Quality Red -Slough/Fibrin Yes -Necrosis Amt Large (67-100%) -Necrotic Tissue Type Eschar -Structure Exposed N/A -Texture (Marie-wound Skin Appearance) Assessed -Moisture (Marie-wound Skin Appearance Assessed ) -Color (Marie-wound Skin Appearance) Assessed -Temperature (Marie-wound Skin No Abnormality Appearance) (Pt Warm) -Tenderness on Palpation (Marie-wound No Skin Appearance) -Ulcer Cleansing Wound Cleanser -Foul Odor after Cleansing No -Anesthetic Used 5% Lidocaine Gel #7- LT INFERIOR CALF CLUSTER -Combined with other wound No -Current Size (cm) - Length 1.2 -Current Size (cm) - Width 1.6 -Current Size (cm) - Depth 0.1 -Total Square Cm 1.92 -Photo Taken No -Tunneling No -Undermining/Tunneling No -Circular Undermining No -Exudate Amt Small (1-33%) -Exudate Type Serous -Wound Margin Distinct, Outline Attached -Granulation Amt Medium (34-66%) -Granulation Quality Red -Necrosis Amt Small (1-33%) -Necrotic Tissue Type Eschar -Structure Exposed N/A -Texture (Marie-wound Skin Appearance) Assessed -Moisture (Marie-wound Skin Appearance Assessed ) -Color (Marie-wound Skin Appearance) Assessed Hemosiderin Staining -Temperature (Marie-wound Skin No Abnormality Appearance) (Pt Warm) -Tenderness on Palpation (Marie-wound No Skin Appearance) -Ulcer Cleansing Rinsed/ Irrigated with Saline -Foul Odor after Cleansing No -Anesthetic Used 5% Lidocaine Gel [Edema Assessment] -Lower Limb Edema Present Yes -Left Calf (cm) 41.5 -Left Ankle (cm) 27 WC - Nurse 2 - General Ulcer CM Notes Start: 02/08/18 16:54 Freq: Status: Active Protocol: Activity Type Activity Date Activity User E-Sign Co-Sign Detail Recorded Client Recorded Date Recorded By Document 03/01/18 16:53 [id number] 03/01/18 16:54 03/01/18 16:53 Wound Center Nurse 2 [Procedure/Treatment] #9 Left Medial-Superior Calf -Time 16:53 -Correct Patient Yes -Correct Side, Site, Position Yes -Correct Procedure Yes -Procedure Performed Yes -Type of Procedure Debridement -Clinical Debridement Subcutaneous -Post Debridement Size (cm) - Length 1.3 -Post Debridement Size (cm) - Width 1.4 -Post Debridement Size (cm) - Depth 0.1 -Total Square Cm 1.82 -Wound/Ulcer Outcome Not Healed -Ulcer Cleansing Rinsed/ Irrigated with Saline -Foul Odor after Cleansing No -Bioengineered Tissue No -Bleeding Controlled with Pressure -Treatment Response Procedure Tolerated Well #7- LT INFERIOR CALF CLUSTER -Time 16:53 -Correct Patient Yes -Correct Side, Site, Position Yes -Correct Procedure Yes -Procedure Performed Yes -Type of Procedure Debridement -Clinical Debridement Subcutaneous -Post Debridement Size (cm) - Length 1.7 -Post Debridement Size (cm) - Width 1.3 -Post Debridement Size (cm) - Depth 0.1 -Total Square Cm 2.21 -Wound/Ulcer Outcome Not Healed -Ulcer Cleansing Rinsed/ Irrigated with Saline -Foul Odor after Cleansing No -Bioengineered Tissue No -Bleeding Controlled with Pressure -Treatment Response Procedure Tolerated Well [See Physician Procedure note for Specifics] Pain Scale: 0-10 Numeric [Pain] -Is Patient Pain Free? Yes Musculoskeletal: No Tenderness to Palpation of Joints or Extremities, Muscle Wasting, Tenderness - Decreased wound manipulation pain noted Neurological: Sensory exam intact to light touch and pain Psych/Mental Status: Normal Affect, Appropriate Debridement Note Post-Debridement Measurements/Treatment WC - Nurse 2 - General Ulcer CM Notes Start: 02/08/18 16:54 Freq: Status: Active Protocol: Activity Type Activity Date Activity User E-Sign Co-Sign Detail Recorded Client Recorded Date Recorded By Document 02/08/18 17:10 TM [id number] 02/08/18 17:23 TM Document 02/17/18 13:42 TM [id number] 02/17/18 14:01 TM Document 02/22/18 16:50 JS [id number] 02/22/18 16:51 JS Document 03/01/18 16:53 [id number] 03/01/18 16:54 02/08/18 02/17/18 02/22/18 17:10 13:42 16:50 Pain Scale: 0-10 Numeric Is Patient Pain Free? Yes Yes Wound Center Nurse 2 #9 Left Medial-Superior Calf -Time 17: 13:59 16:50 -Correct Patient Yes Yes Yes -Correct Side, Site, Position Yes Yes Yes -Correct Procedure Yes Yes Yes -Procedure Performed Yes Yes No -Type of Procedure Debridement Debridement -Clinical Debridement Subcutaneous Subcutaneous -Post Debridement Size (cm) - Length 1.9 1.6 -Post Debridement Size (cm) - Width 1.9 2.0 -Post Debridement Size (cm) - Depth 0.1 0.1 -Total Square Cm 3.61 3.20 -Wound/Ulcer Outcome Not Healed Not Healed Not Healed -Ulcer Cleansing Rinsed/ Rinsed/ Rinsed/ Irrigated with Irrigated with Irrigated with Saline Saline Saline -Foul Odor after Cleansing No No No -Bioengineered Tissue No Yes No -Type of bioengineered Tissue Apligraf -Expiration Date 02/17/18 -Product Lot Number [id number] -Percent Used 50 -Saline Lot Number [id number] -Topical Lidocaine (%) 4 5 -Bleeding Controlled with Pressure Pressure NA -Treatment Response Procedure Procedure Tolerated Well Tolerated Well #7- LT INFERIOR CALF CLUSTER -Time 17: 13:59 16:50 -Correct Patient Yes Yes Yes -Correct Side, Site, Position Yes Yes Yes -Correct Procedure Yes Yes Yes -Procedure Performed Yes Yes No -Type of Procedure Debridement Debridement -Clinical Debridement Subcutaneous Subcutaneous -Post Debridement Size (cm) - Length 2.1 1.7 -Post Debridement Size (cm) - Width 1.8 1.5 -Post Debridement Size (cm) - Depth 0.1 0.1 -Total Square Cm 3.78 2.55 -Wound/Ulcer Outcome Not Healed Not Healed Not Healed -Ulcer Cleansing Rinsed/ Rinsed/ Rinsed/ Irrigated with Irrigated with Irrigated with Saline Saline Saline -Foul Odor after Cleansing No No No -Bioengineered Tissue No Yes No -Type of bioengineered Tissue Apligraf -Expiration Date 02/17/18 -Product Lot Number [id number] -Percent Used 50 -Saline Lot Number [id number] -Topical Lidocaine (%) 5 -Bleeding Controlled with Pressure Pressure NA -Treatment Response Procedure Procedure Tolerated Well Tolerated Well #8 Left lateral LE -Time 17:19 -Correct Patient Yes -Correct Side, Site, Position Yes -Post Debridement Size (cm) - Length 0 -Post Debridement Size (cm) - Width 0 -Post Debridement Size (cm) - Depth 0 -Total Square Cm 0 -Wound/Ulcer Outcome Healed- Epithelialized -Ulcer Cleansing Rinsed/ Irrigated with Saline -Foul Odor after Cleansing No -Bioengineered Tissue No -Bleeding Controlled with NA -Treatment Response Procedure Tolerated Well 03/01/18 16:53 Pain Scale: 0-10 Numeric Is Patient Pain Free? Yes Wound Center Nurse 2 #9 Left Medial-Superior Calf -Time 16:53 -Correct Patient Yes -Correct Side, Site, Position Yes -Correct Procedure Yes -Procedure Performed Yes -Type of Procedure Debridement -Clinical Debridement Subcutaneous -Post Debridement Size (cm) - Length 1.3 -Post Debridement Size (cm) - Width 1.4 -Post Debridement Size (cm) - Depth 0.1 -Total Square Cm 1.82 -Wound/Ulcer Outcome Not Healed -Ulcer Cleansing Rinsed/ Irrigated with Saline -Foul Odor after Cleansing No -Bioengineered Tissue No -Type of bioengineered Tissue -Expiration Date -Product Lot Number -Percent Used -Saline Lot Number -Topical Lidocaine (%) -Bleeding Controlled with Pressure -Treatment Response Procedure Tolerated Well #7- LT INFERIOR CALF CLUSTER -Time 16:53 -Correct Patient Yes -Correct Side, Site, Position Yes -Correct Procedure Yes -Procedure Performed Yes -Type of Procedure Debridement -Clinical Debridement Subcutaneous -Post Debridement Size (cm) - Length 1.7 -Post Debridement Size (cm) - Width 1.3 -Post Debridement Size (cm) - Depth 0.1 -Total Square Cm 2.21 -Wound/Ulcer Outcome Not Healed -Ulcer Cleansing Rinsed/ Irrigated with Saline -Foul Odor after Cleansing No -Bioengineered Tissue No -Type of bioengineered Tissue -Expiration Date -Product Lot Number -Percent Used -Saline Lot Number -Topical Lidocaine (%) -Bleeding Controlled with Pressure -Treatment Response Procedure Tolerated Well #8 Left lateral LE -Time -Correct Patient -Correct Side, Site, Position -Post Debridement Size (cm) - Length -Post Debridement Size (cm) - Width -Post Debridement Size (cm) - Depth -Total Square Cm -Wound/Ulcer Outcome -Ulcer Cleansing -Foul Odor after Cleansing -Bioengineered Tissue -Bleeding Controlled with -Treatment Response Wound debrided: leg Laterality: Left Type of Debridement: Excisional debridement Anesthesia Used: 5% Lidocaine Gel Depth: in the subcutaneous layer Percentage of wound debrided: 40 Instrument Used: #15 blade Tissue Removed: fibrous, devitalized subcutaneous, biofilm, slough Severity: Fat Layer Exposed Amount of bleeding with debridement: Mild Bleeding Controlled with: Pressure Patient tolerated procedure well Assessment/Plan Active Problems Ulcer of left lower extremity with fat layer exposed (Chronic) MRSA (methicillin resistant staph aureus) culture positive (Acute) Venous insufficiency (Chronic) History of DVT (deep vein thrombosis) (Chronic) Chronic pain disorder (Chronic) Lymphedema (Chronic) Assessment: Venous ulcers of lower extremities left with fat layer exposed (2). Lymphedema. Delayed healing. Chronic pain syndrome. MRSA positive culture Plan: Mauricio's wounds/ulcers were evaluated today. Debridement was performed as noted in the clinical panel. A primary dressing of silver cell was applied he was advised to changes daily. A secondary dressings were applied. I recommended the application of advanced wound care product, epi fix and prior authorization is still pending with his most recent updated codes. I reviewe reviewed his pathology results which did not demonstrate a malignancy. His culture was positive for MRSA and he has completed a course of Bactrim; to complete the recommended treatment course. His CBC and CMP were reviewed without any gross abnormalities. His ESR was 6 and C-reactive protein was 24.9. He was advised to continue to treat his edema with tubigrips and have him continue to try and use his lymphedema pumps as much as possible. Compliance was discussed. Encourage increased protein intake for improved healing; Xavier prescription was provided at a previous visit. Updated vascular studies and labs were recommend. He had a previous venous Doppler in April 2017 follow-up on his previous deep venous thrombosis in his exam also demonstrated reflux in the left popliteal vein. This is consistent with the diagnosis of venous insufficiency. I recommend vascular reevaluation. It is noted he had previous noninvasive arterial studies in September 2015 with bilateral biphasic waveforms, right PARADISE of 1.41, left PARADISE of 1.42, white toe brachial index of 1.06 and left toe brachial index of 1.05. He had a subsequent duplex arterial study with bilateral calcifications identified with no significant occlusive disease identified. I answered all his questions. To return to clinic in 1 week or call sooner if he has any questions or concerns.
--- NOTE | 2018-03-01 17:08 | PN.PCM_ITS ---
(1) Ulcer of left lower extremity with fat layer exposed Status: Chronic Current Visit: Yes Code(s): L97.922 - Non-pressure chronic ulcer of unspecified part of left lower leg with fat layer exposed (2) History of DVT (deep vein thrombosis) Status: Chronic Current Visit: Yes Code(s): Z86.718 - Personal history of other venous thrombosis and embolism (3) Chronic pain disorder Status: Chronic Current Visit: Yes Code(s): G89.4 - Chronic pain syndrome (4) Lymphedema Status: Chronic Current Visit: Yes Code(s): I89.0 - Lymphedema, not elsewhere classified (5) MRSA (methicillin resistant staph aureus) culture positive Status: Acute Current Visit: Yes Code(s): Z22.322 - Carrier or suspected carrier of Methicillin resistant Staphylococcus aureus (6) Venous insufficiency Status: Chronic Current Visit: Yes Code(s): I87.2 - Venous insufficiency ( chronic) (peripheral) Type of Wound Date of Service: 03/01/18 Chief Complaint: Nonhealing venous ulcer of left lower extremity History of Wound: Mauricio is here today for follow up of nonhealing wound of his left lower extremity. He denies fever, chill, nausea, vomiting. He has been taking Bactrim for his MRSA wound contamination and relates his wound odor has stopped. He is completed this course. His leg pain is also decreased, however this returns intermittently. He is kept his apligraft intact and in place as advised. He is now seeing a chiropractor and has secondary adjunctive laser application to remove the toxins from his body. Progress of Wound: Improving - Physical Exam Vital Signs Temp Pulse Resp BP 96.2 F L 81 18 122/79 H 03/01/18 16:39 03/01/18 16:39 03/01/18 16:39 03/01/18 16:39 General: Alert, Oriented x3, Cooperative Extremities: No cyanosis, Capillary Refill Less than 3 Seconds, No Calf Tenderness, Diminished Peripheral Pulses, Edema Skin: Ulcer/ Wound - No purulence, no erythema, streaking, no odor, no acute infection. His skin is atrophic and hairless. He has decreased devitalized tissue in the wound size has significantly decreased. Peripheral epithelialization is noted. Wound Measurements and Assessment WC - Nurse 1 - General Ulcer Measurement Start: 02/08/18 16:54 Freq: Status: Active Protocol: Activity Type Activity Date Activity User E-Sign Co-Sign Detail Recorded Client Recorded Date Recorded By Document 03/01/18 16:39 RB [id number] 03/01/18 16:46 RB 03/01/18 16:39 Wound Center Nurse 1 [Ulcer Assessment] #9 Left Medial-Superior Calf -Combined with other wound No -Current Size (cm) - Length 2.1 -Current Size (cm) - Width 1.1 -Current Size (cm) - Depth 0.1 -Total Square Cm 2.31 -Photo Taken No -Epithelialization Small 1-33% -Tunneling No -Undermining/Tunneling No -Circular Undermining No -Exudate Amt Small (1-33%) -Exudate Type Serosanguineous -Wound Margin Distinct, Outline Attached -Granulation Amt Small (1-33%) -Granulation Quality Red -Slough/Fibrin Yes -Necrosis Amt Large (67-100%) -Necrotic Tissue Type Eschar -Structure Exposed N/A -Texture (Marie-wound Skin Appearance) Assessed -Moisture (Marie-wound Skin Appearance Assessed ) -Color (Marie-wound Skin Appearance) Assessed -Temperature (Marie-wound Skin No Abnormality Appearance) (Pt Warm) -Tenderness on Palpation (Marie-wound No Skin Appearance) -Ulcer Cleansing Wound Cleanser -Foul Odor after Cleansing No -Anesthetic Used 5% Lidocaine Gel #7- LT INFERIOR CALF CLUSTER -Combined with other wound No -Current Size (cm) - Length 1.2 -Current Size (cm) - Width 1.6 -Current Size (cm) - Depth 0.1 -Total Square Cm 1.92 -Photo Taken No -Tunneling No -Undermining/Tunneling No -Circular Undermining No -Exudate Amt Small (1-33%) -Exudate Type Serous -Wound Margin Distinct, Outline Attached -Granulation Amt Medium (34-66%) -Granulation Quality Red -Necrosis Amt Small (1-33%) -Necrotic Tissue Type Eschar -Structure Exposed N/A -Texture (Marie-wound Skin Appearance) Assessed -Moisture (Marie-wound Skin Appearance Assessed ) -Color (Marie-wound Skin Appearance) Assessed Hemosiderin Staining -Temperature (Marie-wound Skin No Abnormality Appearance) (Pt Warm) -Tenderness on Palpation (Marie-wound No Skin Appearance) -Ulcer Cleansing Rinsed/ Irrigated with Saline -Foul Odor after Cleansing No -Anesthetic Used 5% Lidocaine Gel [Edema Assessment] -Lower Limb Edema Present Yes -Left Calf (cm) 41.5 -Left Ankle (cm) 27 WC - Nurse 2 - General Ulcer CM Notes Start: 02/08/18 16:54 Freq: Status: Active Protocol: Activity Type Activity Date Activity User E-Sign Co-Sign Detail Recorded Client Recorded Date Recorded By Document 03/01/18 16:53 [id number] 03/01/18 16:54 03/01/18 16:53 Wound Center Nurse 2 [Procedure/Treatment] #9 Left Medial-Superior Calf -Time 16:53 -Correct Patient Yes -Correct Side, Site, Position Yes -Correct Procedure Yes -Procedure Performed Yes -Type of Procedure Debridement -Clinical Debridement Subcutaneous -Post Debridement Size (cm) - Length 1.3 -Post Debridement Size (cm) - Width 1.4 -Post Debridement Size (cm) - Depth 0.1 -Total Square Cm 1.82 -Wound/Ulcer Outcome Not Healed -Ulcer Cleansing Rinsed/ Irrigated with Saline -Foul Odor after Cleansing No -Bioengineered Tissue No -Bleeding Controlled with Pressure -Treatment Response Procedure Tolerated Well #7- LT INFERIOR CALF CLUSTER -Time 16:53 -Correct Patient Yes -Correct Side, Site, Position Yes -Correct Procedure Yes -Procedure Performed Yes -Type of Procedure Debridement -Clinical Debridement Subcutaneous -Post Debridement Size (cm) - Length 1.7 -Post Debridement Size (cm) - Width 1.3 -Post Debridement Size (cm) - Depth 0.1 -Total Square Cm 2.21 -Wound/Ulcer Outcome Not Healed -Ulcer Cleansing Rinsed/ Irrigated with Saline -Foul Odor after Cleansing No -Bioengineered Tissue No -Bleeding Controlled with Pressure -Treatment Response Procedure Tolerated Well [See Physician Procedure note for Specifics] Pain Scale: 0-10 Numeric [Pain] -Is Patient Pain Free? Yes Musculoskeletal: No Tenderness to Palpation of Joints or Extremities, Muscle Wasting, Tenderness - Decreased wound manipulation pain noted Neurological: Sensory exam intact to light touch and pain Psych/Mental Status: Normal Affect, Appropriate Debridement Note Post-Debridement Measurements/Treatment WC - Nurse 2 - General Ulcer CM Notes Start: 02/08/18 16:54 Freq: Status: Active Protocol: Activity Type Activity Date Activity User E-Sign Co-Sign Detail Recorded Client Recorded Date Recorded By Document 02/08/18 17:10 TM [id number] 02/08/18 17:23 TM Document 02/17/18 13:42 TM [id number] 02/17/18 14:01 TM Document 02/22/18 16:50 JS [id number] 02/22/18 16:51 JS Document 03/01/18 16:53 [id number] 03/01/18 16:54 02/08/18 02/17/18 02/22/18 17:10 13:42 16:50 Pain Scale: 0-10 Numeric Is Patient Pain Free? Yes Yes Wound Center Nurse 2 #9 Left Medial-Superior Calf -Time 17: 13:59 16:50 -Correct Patient Yes Yes Yes -Correct Side, Site, Position Yes Yes Yes -Correct Procedure Yes Yes Yes -Procedure Performed Yes Yes No -Type of Procedure Debridement Debridement -Clinical Debridement Subcutaneous Subcutaneous -Post Debridement Size (cm) - Length 1.9 1.6 -Post Debridement Size (cm) - Width 1.9 2.0 -Post Debridement Size (cm) - Depth 0.1 0.1 -Total Square Cm 3.61 3.20 -Wound/Ulcer Outcome Not Healed Not Healed Not Healed -Ulcer Cleansing Rinsed/ Rinsed/ Rinsed/ Irrigated with Irrigated with Irrigated with Saline Saline Saline -Foul Odor after Cleansing No No No -Bioengineered Tissue No Yes No -Type of bioengineered Tissue Apligraf -Expiration Date 02/17/18 -Product Lot Number [id number] -Percent Used 50 -Saline Lot Number [id number] -Topical Lidocaine (%) 4 5 -Bleeding Controlled with Pressure Pressure NA -Treatment Response Procedure Procedure Tolerated Well Tolerated Well #7- LT INFERIOR CALF CLUSTER -Time 17: 13:59 16:50 -Correct Patient Yes Yes Yes -Correct Side, Site, Position Yes Yes Yes -Correct Procedure Yes Yes Yes -Procedure Performed Yes Yes No -Type of Procedure Debridement Debridement -Clinical Debridement Subcutaneous Subcutaneous -Post Debridement Size (cm) - Length 2.1 1.7 -Post Debridement Size (cm) - Width 1.8 1.5 -Post Debridement Size (cm) - Depth 0.1 0.1 -Total Square Cm 3.78 2.55 -Wound/Ulcer Outcome Not Healed Not Healed Not Healed -Ulcer Cleansing Rinsed/ Rinsed/ Rinsed/ Irrigated with Irrigated with Irrigated with Saline Saline Saline -Foul Odor after Cleansing No No No -Bioengineered Tissue No Yes No -Type of bioengineered Tissue Apligraf -Expiration Date 02/17/18 -Product Lot Number [id number] -Percent Used 50 -Saline Lot Number [id number] -Topical Lidocaine (%) 5 -Bleeding Controlled with Pressure Pressure NA -Treatment Response Procedure Procedure Tolerated Well Tolerated Well #8 Left lateral LE -Time 17:19 -Correct Patient Yes -Correct Side, Site, Position Yes -Post Debridement Size (cm) - Length 0 -Post Debridement Size (cm) - Width 0 -Post Debridement Size (cm) - Depth 0 -Total Square Cm 0 -Wound/Ulcer Outcome Healed- Epithelialized -Ulcer Cleansing Rinsed/ Irrigated with Saline -Foul Odor after Cleansing No -Bioengineered Tissue No -Bleeding Controlled with NA -Treatment Response Procedure Tolerated Well 03/01/18 16:53 Pain Scale: 0-10 Numeric Is Patient Pain Free? Yes Wound Center Nurse 2 #9 Left Medial-Superior Calf -Time 16:53 -Correct Patient Yes -Correct Side, Site, Position Yes -Correct Procedure Yes -Procedure Performed Yes -Type of Procedure Debridement -Clinical Debridement Subcutaneous -Post Debridement Size (cm) - Length 1.3 -Post Debridement Size (cm) - Width 1.4 -Post Debridement Size (cm) - Depth 0.1 -Total Square Cm 1.82 -Wound/Ulcer Outcome Not Healed -Ulcer Cleansing Rinsed/ Irrigated with Saline -Foul Odor after Cleansing No -Bioengineered Tissue No -Type of bioengineered Tissue -Expiration Date -Product Lot Number -Percent Used -Saline Lot Number -Topical Lidocaine (%) -Bleeding Controlled with Pressure -Treatment Response Procedure Tolerated Well #7- LT INFERIOR CALF CLUSTER -Time 16:53 -Correct Patient Yes -Correct Side, Site, Position Yes -Correct Procedure Yes -Procedure Performed Yes -Type of Procedure Debridement -Clinical Debridement Subcutaneous -Post Debridement Size (cm) - Length 1.7 -Post Debridement Size (cm) - Width 1.3 -Post Debridement Size (cm) - Depth 0.1 -Total Square Cm 2.21 -Wound/Ulcer Outcome Not Healed -Ulcer Cleansing Rinsed/ Irrigated with Saline -Foul Odor after Cleansing No -Bioengineered Tissue No -Type of bioengineered Tissue -Expiration Date -Product Lot Number -Percent Used -Saline Lot Number -Topical Lidocaine (%) -Bleeding Controlled with Pressure -Treatment Response Procedure Tolerated Well #8 Left lateral LE -Time -Correct Patient -Correct Side, Site, Position -Post Debridement Size (cm) - Length -Post Debridement Size (cm) - Width -Post Debridement Size (cm) - Depth -Total Square Cm -Wound/Ulcer Outcome -Ulcer Cleansing -Foul Odor after Cleansing -Bioengineered Tissue -Bleeding Controlled with -Treatment Response Wound debrided: leg Laterality: Left Type of Debridement: Excisional debridement Anesthesia Used: 5% Lidocaine Gel Depth: in the subcutaneous layer Percentage of wound debrided: 40 Instrument Used: #15 blade Tissue Removed: fibrous, devitalized subcutaneous, biofilm, slough Severity: Fat Layer Exposed Amount of bleeding with debridement: Mild Bleeding Controlled with: Pressure Patient tolerated procedure well Assessment/Plan Active Problems Ulcer of left lower extremity with fat layer exposed (Chronic) MRSA (methicillin resistant staph aureus) culture positive (Acute) Venous insufficiency (Chronic) History of DVT (deep vein thrombosis) (Chronic) Chronic pain disorder (Chronic) Lymphedema (Chronic) Assessment: Venous ulcers of lower extremities left with fat layer exposed (2). Lymphedema. Delayed healing. Chronic pain syndrome. MRSA positive culture Plan: Mauricio's wounds/ulcers were evaluated today. Debridement was performed as noted in the clinical panel. A primary dressing of silver cell was applied he was advised to changes daily. A secondary dressings were applied. I recommended the application of advanced wound care product, epi fix and prior authorization is still pending with his most recent updated codes. I reviewe reviewed his pathology results which did not demonstrate a malignancy. His culture was positive for MRSA and he has completed a course of Bactrim; to complete the recommended treatment course. His CBC and CMP were reviewed without any gross abnormalities. His ESR was 6 and C-reactive protein was 24.9. He was advised to continue to treat his edema with tubigrips and have him continue to try and use his lymphedema pumps as much as possible. Compliance was discussed. Encourage increased protein intake for improved healing; Xavier prescription was provided at a previous visit. Updated vascular studies and labs were recommend. He had a previous venous Doppler in April 2017 follow-up on his previous deep venous thrombosis in his exam also demonstrated reflux in the left popliteal vein. This is consistent with the diagnosis of venous insufficiency. I recommend vascular reevaluation. It is noted he had previous noninvasive arterial studies in September 2015 with bilateral biphasic waveforms, right PARADISE of 1.41, left PARADISE of 1.42, white toe brachial index of 1.06 and left toe brachial index of 1.05. He had a subsequent duplex arterial study with bilateral calcifications identified with no significant occlusive disease identified. I answered all his questions. To return to clinic in 1 week or call sooner if he has any questions or concerns.
[2018-03-08 16:29] VITALS: BP 131/64; PULSE 64; RESP 18; TEMP 36.5; BMI 43.5
--- NOTE | 2018-03-08 16:56 | PN.PCM_ITS ---
(1) Ulcer of left lower extremity with fat layer exposed Status: Chronic Current Visit: Yes Code(s): L97.922 - Non-pressure chronic ulcer of unspecified part of left lower leg with fat layer exposed (2) History of DVT (deep vein thrombosis) Status: Chronic Current Visit: Yes Code(s): Z86.718 - Personal history of other venous thrombosis and embolism (3) Chronic pain disorder Status: Chronic Current Visit: Yes Code(s): G89.4 - Chronic pain syndrome (4) Lymphedema Status: Chronic Current Visit: Yes Code(s): I89.0 - Lymphedema, not elsewhere classified (5) MRSA (methicillin resistant staph aureus) culture positive Status: Acute Current Visit: Yes Code(s): Z22.322 - Carrier or suspected carrier of Methicillin resistant Staphylococcus aureus (6) Venous insufficiency Status: Chronic Current Visit: Yes Code(s): I87.2 - Venous insufficiency ( chronic) (peripheral) Type of Wound Date of Service: 03/09/18 Chief Complaint: Nonhealing venous ulcer of left lower extremity History of Wound: Mauricio is here today for follow up of nonhealing wound of his left lower extremity. He denies fever, chill, nausea, vomiting. His leg pain is also decreased, however this returns intermittently. He denies odor or redness. Progress of Wound: Improving - Physical Exam Vital Signs Temp Pulse Resp BP 97.7 F L 64 18 131/64 H 03/08/18 16:29 03/08/18 16:29 03/08/18 16:29 03/08/18 16:29 General: Alert, Oriented x3, Cooperative Extremities: No cyanosis, Capillary Refill Less than 3 Seconds, No Calf Tenderness, Diminished Peripheral Pulses, Edema Skin: Ulcer/ Wound - decreased wound size notd left. no purulence, no erythema, no streaking, no deep tissue exposed, no odor, no infection local signs left lower extremity. adjacent skin is atrophic Wound Measurements and Assessment WC - Nurse 1 - General Ulcer Measurement Start: 02/08/18 16:54 Freq: Status: Active Protocol: Activity Type Activity Date Activity User E-Sign Co-Sign Detail Recorded Client Recorded Date Recorded By Document 03/08/18 16:29 DL [id number] 03/08/18 16:37 DL 03/08/18 16:29 Wound Center Nurse 1 [Ulcer Assessment] #9 Left Medial-Superior Calf -Current Size (cm) - Length 0.8 -Current Size (cm) - Width 1.2 -Current Size (cm) - Depth 0.1 -Total Square Cm 0.96 -Photo Taken No -Exudate Amt Small (1-33%) -Exudate Type Serosanguineous -Wound Margin Distinct, Outline Attached -Granulation Amt Medium (34-66%) -Granulation Quality Red -Necrosis Amt Medium (34-66%) -Necrotic Tissue Type Adherent Slough -Structure Exposed N/A -Texture (Marie-wound Skin Appearance) Scarring -Moisture (Marie-wound Skin Appearance Maceration ) -Color (Marie-wound Skin Appearance) Hemosiderin Staining -Temperature (Marie-wound Skin No Abnormality Appearance) (Pt Warm) -Ulcer Cleansing Rinsed/ Irrigated with Saline -Foul Odor after Cleansing No -Anesthetic Used 4% Lidocaine Solution 5% Lidocaine Gel #7- LT INFERIOR CALF CLUSTER -Current Size (cm) - Length 1.2 -Current Size (cm) - Width 1 -Current Size (cm) - Depth 0.1 -Total Square Cm 1.2 -Photo Taken No -Exudate Amt Medium (34-66%) -Exudate Type Serosanguineous -Wound Margin Distinct, Outline Attached -Granulation Amt Medium (34-66%) -Granulation Quality Red -Necrosis Amt Medium (34-66%) -Necrotic Tissue Type Adherent Slough -Structure Exposed N/A -Texture (Marie-wound Skin Appearance) Scarring -Moisture (Marie-wound Skin Appearance Maceration ) -Color (Marie-wound Skin Appearance) Hemosiderin Staining -Temperature (Marie-wound Skin No Abnormality Appearance) (Pt Warm) -Ulcer Cleansing Rinsed/ Irrigated with Saline -Foul Odor after Cleansing No -Anesthetic Used 4% Lidocaine Solution 5% Lidocaine Gel [Edema Assessment] -Left Calf (cm) 45.2 -Left Ankle (cm) 30 WC - Nurse 2 - General Ulcer CM Notes Start: 02/08/18 16:54 Freq: Status: Active Protocol: Activity Type Activity Date Activity User E-Sign Co-Sign Detail Recorded Client Recorded Date Recorded By Document 03/08/18 16:48 DL [id number] 03/08/18 16:51 DL 03/08/18 16:48 Wound Center Nurse 2 [Procedure/Treatment] #9 Left Medial-Superior Calf -Time 16:49 -Correct Patient Yes -Correct Side, Site, Position Yes -Correct Procedure Yes -Procedure Performed Yes -Type of Procedure Debridement -Clinical Debridement Subcutaneous -Post Debridement Size (cm) - Length 0.9 -Post Debridement Size (cm) - Width 1.3 -Post Debridement Size (cm) - Depth 0.1 -Total Square Cm 1.17 -Wound/Ulcer Outcome Not Healed -Ulcer Cleansing Rinsed/ Irrigated with Saline -Foul Odor after Cleansing No -Bioengineered Tissue Yes -Type of bioengineered Tissue EPIFIX -Expiration Date 12/08/22 -Product Lot Number [id number] -Percent Used 100 -Saline Lot Number [id number] -Bleeding Controlled with Pressure -Treatment Response Procedure Tolerated Well #7- LT INFERIOR CALF CLUSTER -Time 16:50 -Correct Patient Yes -Correct Side, Site, Position Yes -Correct Procedure Yes -Procedure Performed Yes -Type of Procedure Debridement -Clinical Debridement Subcutaneous -Post Debridement Size (cm) - Length 1.3 -Post Debridement Size (cm) - Width 1.1 -Post Debridement Size (cm) - Depth 0.1 -Total Square Cm 1.43 -Wound/Ulcer Outcome Not Healed -Ulcer Cleansing Rinsed/ Irrigated with Saline -Foul Odor after Cleansing No -Bioengineered Tissue Yes -Type of bioengineered Tissue EPIFIX -Expiration Date 12/08/22 -Product Lot Number [id number] -Percent Used 100 -Saline Lot Number [id number] -Bleeding Controlled with Pressure -Treatment Response Procedure Tolerated Well [See Physician Procedure note for Specifics] Pain Scale: 0-10 Numeric [Pain] -Is Patient Pain Free? Yes Musculoskeletal: No Tenderness to Palpation of Joints or Extremities, Muscle Wasting Neurological: Sensory exam intact to light touch and pain Psych/Mental Status: Normal Affect, Appropriate Debridement Note Post-Debridement Measurements/Treatment WC - Nurse 2 - General Ulcer CM Notes Start: 02/08/18 16:54 Freq: Status: Active Protocol: Activity Type Activity Date Activity User E-Sign Co-Sign Detail Recorded Client Recorded Date Recorded By Document 02/08/18 17:10 TM [id number] 02/08/18 17:23 TM Document 02/17/18 13:42 [id number] 02/17/18 14:01 TM Document 02/22/18 16:50 JS [id number] 02/22/18 16:51 JS Document 03/01/18 16:53 JF [id number] 03/01/18 16:54 JF Document 03/08/18 16:48 DL [id number] 03/08/18 16:51 DL 02/08/18 02/17/18 02/22/18 17:10 13:42 16:50 Pain Scale: 0-10 Numeric Is Patient Pain Free? Yes Yes Wound Center Nurse 2 #9 Left Medial-Superior Calf -Time : 13:59 16:50 -Correct Patient Yes Yes Yes -Correct Side, Site, Position Yes Yes Yes -Correct Procedure Yes Yes Yes -Procedure Performed Yes Yes No -Type of Procedure Debridement Debridement -Clinical Debridement Subcutaneous Subcutaneous -Post Debridement Size (cm) - Length 1.9 1.6 -Post Debridement Size (cm) - Width 1.9 2.0 -Post Debridement Size (cm) - Depth 0.1 0.1 -Total Square Cm 3.61 3.20 -Wound/Ulcer Outcome Not Healed Not Healed Not Healed -Ulcer Cleansing Rinsed/ Rinsed/ Rinsed/ Irrigated with Irrigated with Irrigated with Saline Saline Saline -Foul Odor after Cleansing No No No -Bioengineered Tissue No Yes No -Type of bioengineered Tissue Apligraf -Expiration Date 02/17/18 -Product Lot Number [id number] -Percent Used 50 -Saline Lot Number [id number] -Topical Lidocaine (%) 4 5 -Bleeding Controlled with Pressure Pressure NA -Treatment Response Procedure Procedure Tolerated Well Tolerated Well #7- LT INFERIOR CALF CLUSTER -Time 17: 13:59 16:50 -Correct Patient Yes Yes Yes -Correct Side, Site, Position Yes Yes Yes -Correct Procedure Yes Yes Yes -Procedure Performed Yes Yes No -Type of Procedure Debridement Debridement -Clinical Debridement Subcutaneous Subcutaneous -Post Debridement Size (cm) - Length 2.1 1.7 -Post Debridement Size (cm) - Width 1.8 1.5 -Post Debridement Size (cm) - Depth 0.1 0.1 -Total Square Cm 3.78 2.55 -Wound/Ulcer Outcome Not Healed Not Healed Not Healed -Ulcer Cleansing Rinsed/ Rinsed/ Rinsed/ Irrigated with Irrigated with Irrigated with Saline Saline Saline -Foul Odor after Cleansing No No No -Bioengineered Tissue No Yes No -Type of bioengineered Tissue Apligraf -Expiration Date 02/17/18 -Product Lot Number [id number] -Percent Used 50 -Saline Lot Number [id number] -Topical Lidocaine (%) 5 -Bleeding Controlled with Pressure Pressure NA -Treatment Response Procedure Procedure Tolerated Well Tolerated Well #8 Left lateral LE -Time 17:19 -Correct Patient Yes -Correct Side, Site, Position Yes -Post Debridement Size (cm) - Length 0 -Post Debridement Size (cm) - Width 0 -Post Debridement Size (cm) - Depth 0 -Total Square Cm 0 -Wound/Ulcer Outcome Healed- Epithelialized -Ulcer Cleansing Rinsed/ Irrigated with Saline -Foul Odor after Cleansing No -Bioengineered Tissue No -Bleeding Controlled with NA -Treatment Response Procedure Tolerated Well 03/01/18 03/08/18 16:53 16:48 Pain Scale: 0-10 Numeric Is Patient Pain Free? Yes Yes Wound Center Nurse 2 #9 Left Medial-Superior Calf -Time 16:53 16:49 -Correct Patient Yes Yes -Correct Side, Site, Position Yes Yes -Correct Procedure Yes Yes -Procedure Performed Yes Yes -Type of Procedure Debridement Debridement -Clinical Debridement Subcutaneous Subcutaneous -Post Debridement Size (cm) - Length 1.3 0.9 -Post Debridement Size (cm) - Width 1.4 1.3 -Post Debridement Size (cm) - Depth 0.1 0.1 -Total Square Cm 1.82 1.17 -Wound/Ulcer Outcome Not Healed Not Healed -Ulcer Cleansing Rinsed/ Rinsed/ Irrigated with Irrigated with Saline Saline -Foul Odor after Cleansing No No -Bioengineered Tissue No Yes -Type of bioengineered Tissue EPIFIX -Expiration Date 12/08/22 -Product Lot Number [id number] -Percent Used 100 -Saline Lot Number [id number] -Topical Lidocaine (%) -Bleeding Controlled with Pressure Pressure -Treatment Response Procedure Procedure Tolerated Well Tolerated Well #7- LT INFERIOR CALF CLUSTER -Time 16:53 16:50 -Correct Patient Yes Yes -Correct Side, Site, Position Yes Yes -Correct Procedure Yes Yes -Procedure Performed Yes Yes -Type of Procedure Debridement Debridement -Clinical Debridement Subcutaneous Subcutaneous -Post Debridement Size (cm) - Length 1.7 1.3 -Post Debridement Size (cm) - Width 1.3 1.1 -Post Debridement Size (cm) - Depth 0.1 0.1 -Total Square Cm 2.21 1.43 -Wound/Ulcer Outcome Not Healed Not Healed -Ulcer Cleansing Rinsed/ Rinsed/ Irrigated with Irrigated with Saline Saline -Foul Odor after Cleansing No No -Bioengineered Tissue No Yes -Type of bioengineered Tissue EPIFIX -Expiration Date 12/08/22 -Product Lot Number [id number] -Percent Used 100 -Saline Lot Number [id number] -Topical Lidocaine (%) -Bleeding Controlled with Pressure Pressure -Treatment Response Procedure Procedure Tolerated Well Tolerated Well #8 Left lateral LE -Time -Correct Patient -Correct Side, Site, Position -Post Debridement Size (cm) - Length -Post Debridement Size (cm) - Width -Post Debridement Size (cm) - Depth -Total Square Cm -Wound/Ulcer Outcome -Ulcer Cleansing -Foul Odor after Cleansing -Bioengineered Tissue -Bleeding Controlled with -Treatment Response Wound debrided: leg (distal wound) Laterality: Left Type of Debridement: Excisional debridement Assessment/Plan Active Problems Ulcer of left lower extremity with fat layer exposed (Chronic) MRSA (methicillin resistant staph aureus) culture positive (Acute) Venous insufficiency (Chronic) History of DVT (deep vein thrombosis) (Chronic) Chronic pain disorder (Chronic) Lymphedema (Chronic) Assessment: Venous ulcers of lower extremities left with fat layer exposed (2). Lymphedema. Delayed healing. Chronic pain syndrome. MRSA positive culture Plan: Mauricio's wounds/ulcers were evaluated today. Debridement was performed as noted in the clinical panel. A primary dressing of silver cell was applied he was advised to changes daily. A secondary dressings were applied. I recommended the application of advanced wound care product, epi fix and prior authorization . verbal consent was obtained and this was applied according to protocol. He tolerated this well. A wound veil and steri strips were applied to secure this in place. I reviewed reviewed his pathology results which did not demonstrate a malignancy. His culture was positive for MRSA and he has completed a course of Bactrim; to complete the recommended treatment course. He does not have local or systemic signs of illness. His CBC and CMP were reviewed without any gross abnormalities. His ESR was 6 and C-reactive protein was 24.9. He was advised to continue to treat his edema with tubigrips and have him continue to try and use his lymphedema pumps as much as possible. Compliance was discussed. Encourage increased protein intake for improved healing; Xavier prescription was provided at a previous visit. Updated vascular studies and labs were recommend. He had a previous venous Doppler in April 2017 follow-up on his previous deep venous thrombosis in his exam also demonstrated reflux in the left popliteal vein. This is consistent with the diagnosis of venous insufficiency. I recommend vascular reevaluation. It is noted he had previous noninvasive arterial studies in September 2015 with bilateral biphasic waveforms, right PARADISE of 1.41, left PARADISE of 1.42, white toe brachial index of 1.06 and left toe brachial index of 1.05. He had a subsequent duplex arterial study with bilateral calcifications identified with no significant occlusive disease identified. I answered all his questions. To return to clinic in 1 week or call sooner if he has any questions or concerns.
== END 2018-03-09 23:59 ==
LOC: WC 16:30
PROVIDERS: Family Provider Family Medicine; PCP Family Medicine; Visit Provider Podiatrist
DX: L97.922 Non-pressure chronic ulcer of unspecified part of left lower leg with fat layer exposed (principal); I87.2 Venous insufficiency (chronic) (peripheral); L88 Pyoderma gangrenosum; I89.0 Lymphedema, not elsewhere classified; C44.709 Unspecified malignant neoplasm of skin of left lower limb, including hip; G89.4 Chronic pain syndrome; Z86.718 Personal history of other venous thrombosis and embolism; Z22.322 Carrier or suspected carrier of Methicillin resistant Staphylococcus aureus
CPT/HCPCS: 11042; 11100; 15271; 29581; 87015; 87070; 87077; 87101; 87116; 87186; 87205; 87206; 88305; 88312; Q4101; Q4131

== ENCOUNTER 2018-04-05 16:30 | Outpatient (RCR) | payer OTHER, SELFPAY ==
[2018-03-10 00:33] VITALS: BP 131/64; PULSE 64; RESP 18; TEMP 36.5; BMI 43.5
[2018-03-22 16:55] VITALS: BP 112/67; PULSE 68; RESP 18; TEMP 36; BMI 43.5
--- NOTE | 2018-03-22 17:40 | PCM.WC.PN ---
(1) Ulcer of left lower extremity with fat layer exposed Status: Chronic Current Visit: Yes Code(s): L97.922 - Non-pressure chronic ulcer of unspecified part of left lower leg with fat layer exposed (2) Venous insufficiency Status: Chronic Current Visit: Yes Code(s): I87.2 - Venous insufficiency (chronic) (peripheral) (3) Lymphedema Status: Chronic Current Visit: Yes Code(s): I89.0 - Lymphedema, not elsewhere classified Type of Wound Date of Service: 03/22/18 Chief Complaint: Nonhealing venous ulcer of left lower extremity History of Wound: Mauricio is here today for follow up of nonhealing wound of his left lower extremity. He denies fever, chill, nausea, vomiting. He denies odor or redness. He reports some irritation from the Steri-Strips last week. His pain has decreased since last week. Progress of Wound: Improving - Physical Exam Vital Signs Temp Pulse Resp BP 96.8 F L 68 18 112/67 03/22/18 16:55 03/22/18 16:55 03/22/18 16:55 03/22/18 16:55 General: Alert, Oriented x3, Cooperative Extremities: No cyanosis, Capillary Refill Less than 3 Seconds, No Calf Tenderness, Diminished Peripheral Pulses, Edema Skin: Ulcer/ Wound - No purulence, no erythema, streaking, no odor, no acute infection. Peripheral epithelialization is noted around the ulcer sites. There is some irritation where the Steri-Strips are applied however they remain fully epithelialized. Atrophic skin is noted. Wound Measurements and Assessment WC - Nurse 1 - General Ulcer Measurement Start: 03/22/18 16:55 Freq: Status: Active Protocol: Activity Type Activity Date Activity User E-Sign Co-Sign Detail Recorded Client Recorded Date Recorded By Document 03/22/18 16:55 RB [id number] 03/22/18 17:07 RB 03/22/18 16:55 Wound Center Nurse 1 [Ulcer Assessment] #9 Left Medial-Superior Calf -Combined with other wound No -Current Size (cm) - Length 1.2 -Current Size (cm) - Width 1.1 -Current Size (cm) - Depth 0.1 -Total Square Cm 1.32 -Photo Taken No -Tunneling No -Undermining/Tunneling No -Circular Undermining No -Classification - Thickness Full Thickness without Exposed Support Structure -Exudate Amt Small (1-33%) -Exudate Type Serosanguineous -Wound Margin Distinct, Outline Attached -Granulation Amt Large (67-100%) -Granulation Quality [place] -Slough/Fibrin Yes -Necrosis Amt Small (1-33%) -Necrotic Tissue Type Adherent Slough -Structure Exposed N/A -Texture (Marie-wound Skin Appearance) Assessed Friable -Moisture (Marie-wound Skin Appearance Assessed ) Dry/Scaly -Color (Marie-wound Skin Appearance) Assessed -Temperature (Marie-wound Skin No Abnormality Appearance) (Pt Warm) -Tenderness on Palpation (Marie-wound No Skin Appearance) -Ulcer Cleansing Rinsed/ Irrigated with Saline -Foul Odor after Cleansing No -Anesthetic Used 4% Lidocaine Solution #7- LT INFERIOR CALF CLUSTER -Combined with other wound No -Current Size (cm) - Length 1 -Current Size (cm) - Width 1 -Current Size (cm) - Depth 0.1 -Total Square Cm 1 -Photo Taken No -Tunneling No -Undermining/Tunneling No -Circular Undermining No -Classification - Thickness Full Thickness without Exposed Support Structure -Exudate Amt Small (1-33%) -Exudate Type Serosanguineous -Wound Margin Distinct, Outline Attached -Granulation Amt Large (67-100%) -Granulation Quality [place] -Slough/Fibrin Yes -Necrosis Amt Small (1-33%) -Necrotic Tissue Type Adherent Slough -Structure Exposed N/A -Texture (Marie-wound Skin Appearance) Assessed Friable -Moisture (Marie-wound Skin Appearance Assessed ) Dry/Scaly -Color (Marie-wound Skin Appearance) Assessed -Temperature (Marie-wound Skin No Abnormality Appearance) (Pt Warm) -Tenderness on Palpation (Marie-wound No Skin Appearance) -Ulcer Cleansing Rinsed/ Irrigated with Saline -Foul Odor after Cleansing No -Anesthetic Used 4% Lidocaine Solution [Edema Assessment] -Lower Limb Edema Present Yes -Left Calf (cm) 42.5 -Left Ankle (cm) 29.7 WC - Nurse 2 - General Ulcer CM Notes Start: 03/22/18 16:55 Freq: Status: Active Protocol: Activity Type Activity Date Activity User E-Sign Co-Sign Detail Recorded Client Recorded Date Recorded By Document 03/22/18 17:24 [email or web address] [id number] 03/22/18 17:27 JF 03/22/18 17:24 Wound Center Nurse 2 [Procedure/Treatment] #9 Left Medial-Superior Calf -Time 17:24 -Correct Patient Yes -Correct Side, Site, Position Yes -Correct Procedure Yes -Procedure Performed Yes -Type of Procedure Debridement -Clinical Debridement Subcutaneous -Post Debridement Size (cm) - Length 1.2 -Post Debridement Size (cm) - Width 1.2 -Post Debridement Size (cm) - Depth 0.1 -Total Square Cm 1.44 -Wound/Ulcer Outcome Not Healed -Ulcer Cleansing Rinsed/ Irrigated with Saline -Foul Odor after Cleansing No -Bioengineered Tissue Yes -Type of bioengineered Tissue EPIFIX -Expiration Date 12/08/22 -Product Lot Number [id number] -Percent Used 100 -Saline Lot Number [id number] -Bleeding Controlled with Pressure -Treatment Response Procedure Tolerated Well #7- LT INFERIOR CALF CLUSTER -Time 17:25 -Correct Patient Yes -Correct Side, Site, Position Yes -Correct Procedure Yes -Procedure Performed Yes -Type of Procedure Debridement -Clinical Debridement Subcutaneous -Post Debridement Size (cm) - Length 1.1 -Post Debridement Size (cm) - Width 1.1 -Post Debridement Size (cm) - Depth 0.1 -Total Square Cm 1.21 -Wound/Ulcer Outcome Not Healed -Ulcer Cleansing Rinsed/ Irrigated with Saline -Foul Odor after Cleansing No -Bioengineered Tissue Yes -Type of bioengineered Tissue EPIFIX -Expiration Date 12/08/22 -Product Lot Number [id number] -Percent Used 100 -Saline Lot Number [id number] -Bleeding Controlled with Pressure -Treatment Response Procedure Tolerated Well [See Physician Procedure note for Specifics] Pain Scale: 0-10 Numeric [Pain] -Is Patient Pain Free? Yes Musculoskeletal: No Tenderness to Palpation of Joints or Extremities, Muscle Wasting, - - . Negative Peace and Delacruz left. Compartments of left lower extremity are soft Neurological: Sensory exam intact to light touch and pain Psych/Mental Status: Normal Affect, Appropriate Debridement Note Post-Debridement Measurements/Treatment WC - Nurse 2 - General Ulcer CM Notes Start: 03/22/18 16:55 Freq: Status: Active Protocol: Activity Type Activity Date Activity User E-Sign Co-Sign Detail Recorded Client Recorded Date Recorded By Document 03/22/18 17:24 [id number] 03/22/18 17:27 JF 03/22/18 17:24 Wound Center Nurse 2 #9 Left Medial-Superior Calf -Time 17:24 -Correct Patient Yes -Correct Side, Site, Position Yes -Correct Procedure Yes -Procedure Performed Yes -Type of Procedure Debridement -Clinical Debridement Subcutaneous -Post Debridement Size (cm) - Length 1.2 -Post Debridement Size (cm) - Width 1.2 -Post Debridement Size (cm) - Depth 0.1 -Total Square Cm 1.44 -Wound/Ulcer Outcome Not Healed -Ulcer Cleansing Rinsed/ Irrigated with Saline -Foul Odor after Cleansing No -Bioengineered Tissue Yes -Type of bioengineered Tissue EPIFIX -Expiration Date 12/08/22 -Product Lot Number [id number] -Percent Used 100 -Saline Lot Number [id number] -Bleeding Controlled with Pressure -Treatment Response Procedure Tolerated Well #7- LT INFERIOR CALF CLUSTER -Time 17:25 -Correct Patient Yes -Correct Side, Site, Position Yes -Correct Procedure Yes -Procedure Performed Yes -Type of Procedure Debridement -Clinical Debridement Subcutaneous -Post Debridement Size (cm) - Length 1.1 -Post Debridement Size (cm) - Width 1.1 -Post Debridement Size (cm) - Depth 0.1 -Total Square Cm 1.21 -Wound/Ulcer Outcome Not Healed -Ulcer Cleansing Rinsed/ Irrigated with Saline -Foul Odor after Cleansing No -Bioengineered Tissue Yes -Type of bioengineered Tissue EPIFIX -Expiration Date 12/08/22 -Product Lot Number [id number] -Percent Used 100 -Saline Lot Number [id number] -Bleeding Controlled with Pressure -Treatment Response Procedure Tolerated Well Pain Scale: 0-10 Numeric Is Patient Pain Free? Yes Wound debrided: leg (more proximal wound) Laterality: Left Type of Debridement: Excisional debridement Anesthesia Used: 5% Lidocaine Gel Depth: in the subcutaneous layer Percentage of wound debrided: 100 Instrument Used: #15 blade Tissue Removed: fibrous, devitalized subcutaneous, biofilm, slough Severity: Fat Layer Exposed Amount of bleeding with debridement: Mild Bleeding Controlled with: Pressure Patient tolerated procedure well - Additional Wound Wound debrided: leg (more distal wound) Laterality: Left Type of Debridement: Excisional debridement Anesthesia Used: 5% Lidocaine Gel Depth: in the subcutaneous layer Percentage of wound debrided: 100 Instrument Used: #15 blade Tissue Removed: fibrous, devitalized subcutaneous, biofilm, slough Severity: Fat Layer Exposed Amount of bleeding with debridement: Mild Bleeding Controlled with: Pressure Patient tolerated procedure: Patient tolerated procedure well Assessment/Plan Active Problems Ulcer of left lower extremity with fat layer exposed (Chronic) Venous insufficiency (Chronic) Lymphedema (Chronic) Assessment: Venous ulcers of lower extremities left with fat layer exposed (2). Lymphedema. Delayed healing. Chronic pain syndrome. MRSA positive culture Plan: Mauricio's wounds/ulcers were evaluated today. Debridement was performed as noted in the clinical panel. I recommended the application of advanced wound care product, epi fix and verbal consent was obtained prior to application according to standard protocol. He tolerated this well. A wound veil and steri strips were applied to secure this in place. Smaller Steri-Strips were applied to the intact skin. To monitor for irritation. He only had sensitivities to this last week and it is noted he did not experience this at previous visits. I reviewed reviewed his pathology results which did not demonstrate a malignancy. His culture was positive for MRSA and he has completed a course of Bactrim; to complete the recommended treatment course. He does not have local or systemic signs of illness. His CBC and CMP were reviewed without any gross abnormalities. His ESR was 6 and C-reactive protein was 24.9. He was advised to continue to treat his edema with tubigrips and have him continue to try and use his lymphedema pumps as much as possible. Compliance was discussed. Encourage increased protein intake for improved healing; Xavier prescription was provided at a previous visit. Updated vascular studies and labs were recommend. He had a previous venous Doppler in April 2017 follow-up on his previous deep venous thrombosis in his exam also demonstrated reflux in the left popliteal vein. This is consistent with the diagnosis of venous insufficiency. I recommend vascular reevaluation. It is noted he had previous noninvasive arterial studies in September 2015 with bilateral biphasic waveforms, right PARADISE of 1.41, left PARADISE of 1.42, white toe brachial index of 1.06 and left toe brachial index of 1.05. He had a subsequent duplex arterial study with bilateral calcifications identified with no significant occlusive disease identified. I answered all his questions. To return to clinic in 1 week or call sooner if he has any questions or concerns.
--- NOTE | 2018-03-22 17:44 | PN.PCM_ITS ---
(1) Ulcer of left lower extremity with fat layer exposed Status: Chronic Current Visit: Yes Code(s): L97.922 - Non-pressure chronic ulcer of unspecified part of left lower leg with fat layer exposed (2) Venous insufficiency Status: Chronic Current Visit: Yes Code(s): I87.2 - Venous insufficiency ( chronic) (peripheral) (3) Lymphedema Status: Chronic Current Visit: Yes Code(s): I89.0 - Lymphedema, not elsewhere classified Type of Wound Date of Service: 03/22/18 Chief Complaint: Nonhealing venous ulcer of left lower extremity History of Wound: Mauricio is here today for follow up of nonhealing wound of his left lower extremity. He denies fever, chill, nausea, vomiting. He denies odor or redness. He reports some irritation from the Steri-Strips last week. His pain has decreased since last week. Progress of Wound: Improving - Physical Exam Vital Signs Temp Pulse Resp BP 96.8 F L 68 18 112/67 03/22/18 16:55 03/22/18 16:55 03/22/18 16:55 03/22/18 16:55 General: Alert, Oriented x3, Cooperative Extremities: No cyanosis, Capillary Refill Less than 3 Seconds, No Calf Tenderness, Diminished Peripheral Pulses, Edema Skin: Ulcer/ Wound - No purulence, no erythema, streaking, no odor, no acute infection. Peripheral epithelialization is noted around the ulcer sites. There is some irritation where the Steri-Strips are applied however they remain fully epithelialized. Atrophic skin is noted. Wound Measurements and Assessment WC - Nurse 1 - General Ulcer Measurement Start: 03/22/18 16:55 Freq: Status: Active Protocol: Activity Type Activity Date Activity User E-Sign Co-Sign Detail Recorded Client Recorded Date Recorded By Document 03/22/18 16:55 RB [id number] 03/22/18 17:07 RB 03/22/18 16:55 Wound Center Nurse 1 [Ulcer Assessment] #9 Left Medial-Superior Calf -Combined with other wound No -Current Size (cm) - Length 1.2 -Current Size (cm) - Width 1.1 -Current Size (cm) - Depth 0.1 -Total Square Cm 1.32 -Photo Taken No -Tunneling No -Undermining/Tunneling No -Circular Undermining No -Classification - Thickness Full Thickness without Exposed Support Structure -Exudate Amt Small (1-33%) -Exudate Type Serosanguineous -Wound Margin Distinct, Outline Attached -Granulation Amt Large (67-100%) -Granulation Quality [place] -Slough/Fibrin Yes -Necrosis Amt Small (1-33%) -Necrotic Tissue Type Adherent Slough -Structure Exposed N/A -Texture (Marie-wound Skin Appearance) Assessed Friable -Moisture (Marie-wound Skin Appearance Assessed ) Dry/Scaly -Color (Marie-wound Skin Appearance) Assessed -Temperature (Marie-wound Skin No Abnormality Appearance) (Pt Warm) -Tenderness on Palpation (Marie-wound No Skin Appearance) -Ulcer Cleansing Rinsed/ Irrigated with Saline -Foul Odor after Cleansing No -Anesthetic Used 4% Lidocaine Solution #7- LT INFERIOR CALF CLUSTER -Combined with other wound No -Current Size (cm) - Length 1 -Current Size (cm) - Width 1 -Current Size (cm) - Depth 0.1 -Total Square Cm 1 -Photo Taken No -Tunneling No -Undermining/Tunneling No -Circular Undermining No -Classification - Thickness Full Thickness without Exposed Support Structure -Exudate Amt Small (1-33%) -Exudate Type Serosanguineous -Wound Margin Distinct, Outline Attached -Granulation Amt Large (67-100%) -Granulation Quality [place] -Slough/Fibrin Yes -Necrosis Amt Small (1-33%) -Necrotic Tissue Type Adherent Slough -Structure Exposed N/A -Texture (Marie-wound Skin Appearance) Assessed Friable -Moisture (Marie-wound Skin Appearance Assessed ) Dry/Scaly -Color (Marie-wound Skin Appearance) Assessed -Temperature (Marie-wound Skin No Abnormality Appearance) (Pt Warm) -Tenderness on Palpation (Marie-wound No Skin Appearance) -Ulcer Cleansing Rinsed/ Irrigated with Saline -Foul Odor after Cleansing No -Anesthetic Used 4% Lidocaine Solution [Edema Assessment] -Lower Limb Edema Present Yes -Left Calf (cm) 42.5 -Left Ankle (cm) 29.7 WC - Nurse 2 - General Ulcer CM Notes Start: 03/22/18 16:55 Freq: Status: Active Protocol: Activity Type Activity Date Activity User E-Sign Co-Sign Detail Recorded Client Recorded Date Recorded By Document 03/22/18 17:24 [email or web address] [id number] 03/22/18 17:27 JF 03/22/18 17:24 Wound Center Nurse 2 [Procedure/Treatment] #9 Left Medial-Superior Calf -Time 17:24 -Correct Patient Yes -Correct Side, Site, Position Yes -Correct Procedure Yes -Procedure Performed Yes -Type of Procedure Debridement -Clinical Debridement Subcutaneous -Post Debridement Size (cm) - Length 1.2 -Post Debridement Size (cm) - Width 1.2 -Post Debridement Size (cm) - Depth 0.1 -Total Square Cm 1.44 -Wound/Ulcer Outcome Not Healed -Ulcer Cleansing Rinsed/ Irrigated with Saline -Foul Odor after Cleansing No -Bioengineered Tissue Yes -Type of bioengineered Tissue EPIFIX -Expiration Date 12/08/22 -Product Lot Number [id number] -Percent Used 100 -Saline Lot Number [id number] -Bleeding Controlled with Pressure -Treatment Response Procedure Tolerated Well #7- LT INFERIOR CALF CLUSTER -Time 17:25 -Correct Patient Yes -Correct Side, Site, Position Yes -Correct Procedure Yes -Procedure Performed Yes -Type of Procedure Debridement -Clinical Debridement Subcutaneous -Post Debridement Size (cm) - Length 1.1 -Post Debridement Size (cm) - Width 1.1 -Post Debridement Size (cm) - Depth 0.1 -Total Square Cm 1.21 -Wound/Ulcer Outcome Not Healed -Ulcer Cleansing Rinsed/ Irrigated with Saline -Foul Odor after Cleansing No -Bioengineered Tissue Yes -Type of bioengineered Tissue EPIFIX -Expiration Date 12/08/22 -Product Lot Number [id number] -Percent Used 100 -Saline Lot Number [id number] -Bleeding Controlled with Pressure -Treatment Response Procedure Tolerated Well [See Physician Procedure note for Specifics] Pain Scale: 0-10 Numeric [Pain] -Is Patient Pain Free? Yes Musculoskeletal: No Tenderness to Palpation of Joints or Extremities, Muscle Wasting, - - . Negative Peace and Delacruz left. Compartments of left lower extremity are soft Neurological: Sensory exam intact to light touch and pain Psych/Mental Status: Normal Affect, Appropriate Debridement Note Post-Debridement Measurements/Treatment WC - Nurse 2 - General Ulcer CM Notes Start: 03/22/18 16:55 Freq: Status: Active Protocol: Activity Type Activity Date Activity User E-Sign Co-Sign Detail Recorded Client Recorded Date Recorded By Document 03/22/18 17:24 [id number] 03/22/18 17:27 JF 03/22/18 17:24 Wound Center Nurse 2 #9 Left Medial-Superior Calf -Time 17:24 -Correct Patient Yes -Correct Side, Site, Position Yes -Correct Procedure Yes -Procedure Performed Yes -Type of Procedure Debridement -Clinical Debridement Subcutaneous -Post Debridement Size (cm) - Length 1.2 -Post Debridement Size (cm) - Width 1.2 -Post Debridement Size (cm) - Depth 0.1 -Total Square Cm 1.44 -Wound/Ulcer Outcome Not Healed -Ulcer Cleansing Rinsed/ Irrigated with Saline -Foul Odor after Cleansing No -Bioengineered Tissue Yes -Type of bioengineered Tissue EPIFIX -Expiration Date 12/08/22 -Product Lot Number [id number] -Percent Used 100 -Saline Lot Number [id number] -Bleeding Controlled with Pressure -Treatment Response Procedure Tolerated Well #7- LT INFERIOR CALF CLUSTER -Time 17:25 -Correct Patient Yes -Correct Side, Site, Position Yes -Correct Procedure Yes -Procedure Performed Yes -Type of Procedure Debridement -Clinical Debridement Subcutaneous -Post Debridement Size (cm) - Length 1.1 -Post Debridement Size (cm) - Width 1.1 -Post Debridement Size (cm) - Depth 0.1 -Total Square Cm 1.21 -Wound/Ulcer Outcome Not Healed -Ulcer Cleansing Rinsed/ Irrigated with Saline -Foul Odor after Cleansing No -Bioengineered Tissue Yes -Type of bioengineered Tissue EPIFIX -Expiration Date 12/08/22 -Product Lot Number [id number] -Percent Used 100 -Saline Lot Number [id number] -Bleeding Controlled with Pressure -Treatment Response Procedure Tolerated Well Pain Scale: 0-10 Numeric Is Patient Pain Free? Yes Wound debrided: leg (more proximal wound) Laterality: Left Type of Debridement: Excisional debridement Anesthesia Used: 5% Lidocaine Gel Depth: in the subcutaneous layer Percentage of wound debrided: 100 Instrument Used: #15 blade Tissue Removed: fibrous, devitalized subcutaneous, biofilm, slough Severity: Fat Layer Exposed Amount of bleeding with debridement: Mild Bleeding Controlled with: Pressure Patient tolerated procedure well - Additional Wound Wound debrided: leg (more distal wound) Laterality: Left Type of Debridement: Excisional debridement Anesthesia Used: 5% Lidocaine Gel Depth: in the subcutaneous layer Percentage of wound debrided: 100 Instrument Used: #15 blade Tissue Removed: fibrous, devitalized subcutaneous, biofilm, slough Severity: Fat Layer Exposed Amount of bleeding with debridement: Mild Bleeding Controlled with: Pressure Patient tolerated procedure: Patient tolerated procedure well Assessment/Plan Active Problems Ulcer of left lower extremity with fat layer exposed (Chronic) Venous insufficiency (Chronic) Lymphedema (Chronic) Assessment: Venous ulcers of lower extremities left with fat layer exposed (2). Lymphedema. Delayed healing. Chronic pain syndrome. MRSA positive culture Plan: Mauricio's wounds/ulcers were evaluated today. Debridement was performed as noted in the clinical panel. I recommended the application of advanced wound care product, epi fix and verbal consent was obtained prior to application according to standard protocol. He tolerated this well. A wound veil and steri strips were applied to secure this in place. Smaller Steri- Strips were applied to the intact skin. To monitor for irritation. He only had sensitivities to this last week and it is noted he did not experience this at previous visits. I reviewed reviewed his pathology results which did not demonstrate a malignancy. His culture was positive for MRSA and he has completed a course of Bactrim; to complete the recommended treatment course. He does not have local or systemic signs of illness. His CBC and CMP were reviewed without any gross abnormalities. His ESR was 6 and C-reactive protein was 24.9. He was advised to continue to treat his edema with tubigrips and have him continue to try and use his lymphedema pumps as much as possible. Compliance was discussed. Encourage increased protein intake for improved healing; Xavier prescription was provided at a previous visit. Updated vascular studies and labs were recommend. He had a previous venous Doppler in April 2017 follow-up on his previous deep venous thrombosis in his exam also demonstrated reflux in the left popliteal vein. This is consistent with the diagnosis of venous insufficiency. I recommend vascular reevaluation. It is noted he had previous noninvasive arterial studies in September 2015 with bilateral biphasic waveforms, right PARADISE of 1.41, left [place]ISE of 1.42, white toe brachial index of 1.06 and left toe brachial index of 1.05. He had a subsequent duplex arterial study with bilateral calcifications identified with no significant occlusive disease identified. I answered all his questions. To return to clinic in 1 week or call sooner if he has any questions or concerns.
[2018-03-29 17:03] VITALS: BP 127/83; PULSE 73; RESP 18; TEMP 36.1; BMI 43.5
--- NOTE | 2018-03-29 17:42 | PN.PCM_ITS ---
(1) Ulcer of left lower extremity with fat layer exposed Status: Chronic Current Visit: Yes Code(s): L97.922 - Non-pressure chronic ulcer of unspecified part of left lower leg with fat layer exposed (2) Venous insufficiency Status: Chronic Current Visit: Yes Code(s): I87.2 - Venous insufficiency ( chronic) (peripheral) (3) Lymphedema Status: Chronic Current Visit: Yes Code(s): I89.0 - Lymphedema, not elsewhere classified Type of Wound Date of Service: 03/29/18 Chief Complaint: Nonhealing venous ulcer of left lower extremity History of Wound: Mauricio is here today for follow up of nonhealing wound of his left lower extremity. He denies fever, chill, nausea, vomiting. Denies significant Steri-Strip irritation. his pain has decreased since last week. Progress of Wound: Improving - Physical Exam Vital Signs Temp Pulse Resp BP 97 F L 73 18 127/83 H 03/29/18 17:03 03/29/18 17:03 03/29/18 17:03 03/29/18 17:03 General: Alert, Oriented x3, Cooperative Extremities: No cyanosis, Capillary Refill Less than 3 Seconds, No Calf Tenderness, Diminished Peripheral Pulses, Edema Skin: Ulcer/ Wound - No purulence, erythema, streaking, odor, no infection left leg. The wound site is decreasing. Peripheral skin is atrophic. Wound Measurements and Assessment WC - Nurse 1 - General Ulcer Measurement Start: 03/22/18 16:55 Freq: Status: Active Protocol: Activity Type Activity Date Activity User E-Sign Co-Sign Detail Recorded Client Recorded Date Recorded By Document 03/29/18 17:03 [id number] 03/29/18 17:17 RB 03/29/18 17:03 Wound Center Nurse 1 [Ulcer Assessment] #9 Left Medial-Superior Calf -Combined with other wound No -Current Size (cm) - Length 1 -Current Size (cm) - Width 0.9 -Current Size (cm) - Depth 0.1 -Total Square Cm 0.9 -Tunneling No -Undermining/Tunneling No -Circular Undermining No -Classification - Thickness Full Thickness without Exposed Support Structure -Exudate Amt Small (1-33%) -Exudate Type Serosanguineous -Wound Margin Distinct, Outline Attached -Granulation Amt Large (67-100%) -Granulation Quality [place] Red -Slough/Fibrin Yes -Necrosis Amt Small (1-33%) -Necrotic Tissue Type Adherent Slough -Structure Exposed N/A -Texture (Marie-wound Skin Appearance) Assessed -Moisture (Marie-wound Skin Appearance Dry/Scaly ) -Color (Marie-wound Skin Appearance) Assessed -Temperature (Marie-wound Skin No Abnormality Appearance) (Pt Warm) -Tenderness on Palpation (Marie-wound No Skin Appearance) -Ulcer Cleansing Rinsed/ Irrigated with Saline -Foul Odor after Cleansing Yes -Anesthetic Used 5% Lidocaine Gel #7- LT INFERIOR CALF CLUSTER -Combined with other wound No -Current Size (cm) - Length 1.5 -Current Size (cm) - Width 1.5 -Current Size (cm) - Depth 0.1 -Total Square Cm 2.25 -Photo Taken No -Tunneling No -Undermining/Tunneling No -Circular Undermining No -Classification - Thickness Full Thickness without Exposed Support Structure -Exudate Amt Small (1-33%) -Exudate Type Serosanguineous -Wound Margin Distinct, Outline Attached -Granulation Amt Large (67-100%) -Granulation Quality [place] Red -Slough/Fibrin Yes -Necrosis Amt Small (1-33%) -Necrotic Tissue Type Adherent Slough -Structure Exposed N/A -Texture (Marie-wound Skin Appearance) Assessed -Moisture (Marie-wound Skin Appearance Assessed ) Dry/Scaly -Color (Marie-wound Skin Appearance) Assessed -Temperature (Marie-wound Skin No Abnormality Appearance) (Pt Warm) -Tenderness on Palpation (Marie-wound No Skin Appearance) -Ulcer Cleansing Rinsed/ Irrigated with Saline -Foul Odor after Cleansing No -Anesthetic Used 5% Lidocaine Gel [Edema Assessment] -Lower Limb Edema Present Yes -Left Calf (cm) 44 -Left Ankle (cm) 29.8 WC - Nurse 2 - General Ulcer CM Notes Start: 03/22/18 16:55 Freq: Status: Active Protocol: Activity Type Activity Date Activity User E-Sign Co-Sign Detail Recorded Client Recorded Date Recorded By Document 03/29/18 17:30 [email or web address] [id number] 03/29/18 17:35 [email or web address] 03/29/18 17:30 Wound Center Nurse 2 [Procedure/Treatment] #9 Left Medial-Superior Calf -Time 17:30 -Correct Patient Yes -Correct Side, Site, Position Yes -Correct Procedure Yes -Procedure Performed Yes -Type of Procedure Debridement -Clinical Debridement Subcutaneous -Post Debridement Size (cm) - Length 0.8 -Post Debridement Size (cm) - Width 0.8 -Post Debridement Size (cm) - Depth 0.1 -Total Square Cm 0.64 -Wound/Ulcer Outcome Not Healed -Ulcer Cleansing Rinsed/ Irrigated with Saline -Foul Odor after Cleansing No -Bioengineered Tissue Yes -Type of bioengineered Tissue EPIFIX -Expiration Date 01/08/23 -Product Lot Number [id number] -Percent Used 100 -Saline Lot Number [id number] -Bleeding Controlled with NA -Treatment Response Procedure Tolerated Well #7- LT INFERIOR CALF CLUSTER -Time 17:32 -Correct Patient Yes -Correct Side, Site, Position Yes -Correct Procedure Yes -Procedure Performed Yes -Type of Procedure Debridement -Clinical Debridement Subcutaneous -Post Debridement Size (cm) - Length 1 -Post Debridement Size (cm) - Width 0.8 -Post Debridement Size (cm) - Depth 0.1 -Total Square Cm 0.8 -Wound/Ulcer Outcome Not Healed -Ulcer Cleansing Rinsed/ Irrigated with Saline -Foul Odor after Cleansing No -Bioengineered Tissue Yes -Type of bioengineered Tissue EPIFIX -Expiration Date 01/08/23 -Product Lot Number [id number] -Percent Used 100 -Saline Lot Number [id number] -Bleeding Controlled with NA -Treatment Response Procedure Tolerated Well [See Physician Procedure note for Specifics] Pain Scale: 0-10 Numeric [Pain] -Is Patient Pain Free? Yes Musculoskeletal: No Tenderness to Palpation of Joints or Extremities, Muscle Wasting Neurological: Sensory exam intact to light touch and pain - Hypersensitive to touch, - Psych/Mental Status: Normal Affect, Appropriate Debridement Note Post-Debridement Measurements/Treatment WC - Nurse 2 - General Ulcer CM Notes Start: 03/22/18 16:55 Freq: Status: Active Protocol: Activity Type Activity Date Activity User E-Sign Co-Sign Detail Recorded Client Recorded Date Recorded By Document 03/22/18 17:24 [id number] 03/22/18 17:27 Document 03/29/18 17:30 [id number] 03/29/18 17:35 03/22/18 03/29/18 17:24 17:30 Wound Center Nurse 2 #9 Left Medial-Superior Calf -Time 17:24 17:30 -Correct Patient Yes Yes -Correct Side, Site, Position Yes Yes -Correct Procedure Yes Yes -Procedure Performed Yes Yes -Type of Procedure Debridement Debridement -Clinical Debridement Subcutaneous Subcutaneous -Post Debridement Size (cm) - Length 1.2 0.8 -Post Debridement Size (cm) - Width 1.2 0.8 -Post Debridement Size (cm) - Depth 0.1 0.1 -Total Square Cm 1.44 0.64 -Wound/Ulcer Outcome Not Healed Not Healed -Ulcer Cleansing Rinsed/ Rinsed/ Irrigated with Irrigated with Saline Saline -Foul Odor after Cleansing No No -Bioengineered Tissue Yes Yes -Type of bioengineered Tissue EPIFIX EPIFIX -Expiration Date 12/08/22 01/08/23 -Product Lot Number [id number] -Percent Used 100 100 -Saline Lot Number [id number] -Bleeding Controlled with Pressure NA -Treatment Response Procedure Procedure Tolerated Well Tolerated Well #7- LT INFERIOR CALF CLUSTER -Time 17:25 17:32 -Correct Patient Yes Yes -Correct Side, Site, Position Yes Yes -Correct Procedure Yes Yes -Procedure Performed Yes Yes -Type of Procedure Debridement Debridement -Clinical Debridement Subcutaneous Subcutaneous -Post Debridement Size (cm) - Length 1.1 1 -Post Debridement Size (cm) - Width 1.1 0.8 -Post Debridement Size (cm) - Depth 0.1 0.1 -Total Square Cm 1.21 0.8 -Wound/Ulcer Outcome Not Healed Not Healed -Ulcer Cleansing Rinsed/ Rinsed/ Irrigated with Irrigated with Saline Saline -Foul Odor after Cleansing No No -Bioengineered Tissue Yes Yes -Type of bioengineered Tissue EPIFIX EPIFIX -Expiration Date 12/08/22 01/08/23 -Product Lot Number [id number] -Percent Used 100 100 -Saline Lot Number [id number] -Bleeding Controlled with Pressure NA -Treatment Response Procedure Procedure Tolerated Well Tolerated Well Pain Scale: 0-10 Numeric Is Patient Pain Free? Yes Yes Wound debrided: leg (proximal wound) Laterality: Left Wound Grade/Stage: Type of Debridement: Excisional debridement Anesthesia Used: 5% Lidocaine Gel Depth: in the subcutaneous layer Percentage of wound debrided: 100 Instrument Used: #15 blade Tissue Removed: fibrous, devitalized subcutaneous, biofilm, slough Severity: Fat Layer Exposed Amount of bleeding with debridement: Mild Bleeding Controlled with: Pressure Patient tolerated procedure well - Additional Wound Wound debrided: leg (distal wound) Laterality: Left Type of Debridement: Excisional debridement Anesthesia Used: 5% Lidocaine Gel Depth: in the subcutaneous layer Percentage of wound debrided: 100 Instrument Used: #15 blade Tissue Removed: fibrous, devitalized subcutaneous, biofilm, slough Severity: Fat Layer Exposed Amount of bleeding with debridement: Mild Bleeding Controlled with: Pressure Patient tolerated procedure: Patient tolerated procedure well Assessment/Plan Active Problems Ulcer of left lower extremity with fat layer exposed (Chronic) Venous insufficiency (Chronic) Lymphedema (Chronic) Assessment: Venous ulcers of lower extremities left with fat layer exposed (2). Lymphedema. Delayed healing. Chronic pain syndrome. MRSA positive culture Plan: Mauricio's wounds/ulcers were evaluated today. Debridement was performed as noted in the clinical panel. I recommended the application of advanced wound care product, epi fix and verbal consent was obtained prior to application according to standard protocol. He tolerated this well. A wound veil and steri strips were applied to secure this in place. I reviewed reviewed his pathology results which did not demonstrate a malignancy. His culture was positive for MRSA and he has completed a course of Bactrim; to complete the recommended treatment course. He does not have local or systemic signs of illness. His CBC and CMP were reviewed without any gross abnormalities. His ESR was 6 and C-reactive protein was 24.9. He was advised to continue to treat his edema with tubigrips and have him continue to try and use his lymphedema pumps as much as possible. Compliance was discussed. Encourage increased protein intake for improved healing; Xavier prescription was provided at a previous visit. Updated vascular studies and labs were recommend. He had a previous venous Doppler in April 2017 follow-up on his previous deep venous thrombosis in his exam also demonstrated reflux in the left popliteal vein. This is consistent with the diagnosis of venous insufficiency. I recommend vascular reevaluation. It is noted he had previous noninvasive arterial studies in September 2015 with bilateral biphasic waveforms, right PARADISE of 1.41, left PARADISE of 1.42, white toe brachial index of 1.06 and left toe brachial index of 1.05. He had a subsequent duplex arterial study with bilateral calcifications identified with no significant occlusive disease identified. I answered all his questions. To return to clinic in 1 week or call sooner if he has any questions or concerns.
[2018-04-05 16:42] VITALS: RESP 18; TEMP 36.9; BMI 43.5
--- NOTE | 2018-04-05 17:29 | PN.PCM_ITS ---
(1) Ulcer of left lower extremity with fat layer exposed Status: Chronic Code(s): L97.922 - Non-pressure chronic ulcer of unspecified part of left lower leg with fat layer exposed (2) Venous insufficiency Status: Chronic Code(s): I87.2 - Venous insufficiency (chronic) (peripheral) (3) Lymphedema Status: Chronic Code(s): I89.0 - Lymphedema, not elsewhere classified Type of Wound Date of Service: 04/09/18 Chief Complaint: Nonhealing venous ulcer of left lower extremity History of Wound: This pleasant 62-year-old male is here today for follow up of nonhealing wound of his left lower extremity. He denies fever, chill, nausea , vomiting. His pain is fluctuating due to the weather he reports. He denies redness or odors. Progress of Wound: Improving - Physical Exam Vital Signs Temp Pulse Resp BP 98.4 F 73 18 127/83 H 04/05/18 16:42 03/29/18 17:03 04/05/18 16:42 03/29/18 17:03 General: Alert, Oriented x3, Cooperative Extremities: No cyanosis, Capillary Refill Less than 3 Seconds, No Calf Tenderness - Negative Peace and Delacruz sign bilateral, Diminished Peripheral Pulses, Edema - Bilateral lower extremity Skin: Ulcer/ Wound - No purulence, no erythema, streaking, no odor, no infection. Peripheral epithelialization is noted. There is no deep exposed tissue noted. There is no alex necrosis. Wound Measurements and Assessment WC - Nurse 1 - General Ulcer Measurement Start: 03/22/18 16:55 Freq: Status: Active Protocol: Activity Type Activity Date Activity User E-Sign Co-Sign Detail Recorded Client Recorded Date Recorded By Document 04/05/18 16:42 [id number] 04/05/18 16:51 04/05/18 16:42 Wound Center Nurse 1 [Ulcer Assessment] #9 Left Medial-Superior Calf -Combined with other wound No -Current Size (cm) - Length -Current Size (cm) - Depth -Total Square Cm -Photo Taken No -Epithelialization Medium 34-66% -Tunneling No -Undermining/Tunneling No -Circular Undermining No -Classification - Thickness Full Thickness without Exposed Support Structure -Exudate Amt None Present (0 %) -Wound Margin Distinct, Outline Attached -Granulation Amt Large (67-100%) -Granulation Quality Red -Slough/Fibrin Yes -Necrosis Amt Small (1-33%) -Structure Exposed None/Limited to Skin Breakdown -Texture (Marie-wound Skin Appearance) Localized Edema Scarring -Moisture (Marie-wound Skin Appearance Dry/Scaly ) -Color (Marie-wound Skin Appearance) Hemosiderin Staining -Temperature (Marie-wound Skin No Abnormality Appearance) (Pt Warm) -Tenderness on Palpation (Marie-wound No Skin Appearance) -Ulcer Cleansing Rinsed/ Irrigated with Saline -Foul Odor after Cleansing No -Anesthetic Used 5% Lidocaine Gel #7- LT INFERIOR CALF CLUSTER -Combined with other wound No -Current Size (cm) - Length -Current Size (cm) - Width -Current Size (cm) - Depth -Photo Taken No -Epithelialization Small 1-33% -Tunneling No -Undermining/Tunneling No -Circular Undermining No -Classification - Thickness Full Thickness without Exposed Support Structure -Exudate Amt Small (1-33%) -Exudate Type Serosanguineous -Wound Margin Fibrotic Scar, Thickened Scar -Granulation Amt Small (1-33%) -Granulation Quality [place] -Slough/Fibrin Yes -Necrosis Amt Small (1-33%) -Necrotic Tissue Type Adherent Slough -Structure Exposed Fascia Fat Layer Exposed -Texture (Marie-wound Skin Appearance) Localized Edema Scarring -Moisture (Marie-wound Skin Appearance No Abnormality ) -Color (Marie-wound Skin Appearance) Erythema Hemosiderin Staining -Temperature (Marie-wound Skin No Abnormality Appearance) (Pt Warm) -Tenderness on Palpation (Marie-wound No Skin Appearance) -Ulcer Cleansing Rinsed/ Irrigated with Saline -Foul Odor after Cleansing No -Anesthetic Used 5% Lidocaine Gel [Edema Assessment] -Lower Limb Edema Present Yes -Left Calf (cm) 44.0 -Left Ankle (cm) 30.5 WC - Nurse 2 - General Ulcer CM Notes Start: 03/22/18 16:55 Freq: Status: Active Protocol: Activity Type Activity Date Activity User E-Sign Co-Sign Detail Recorded Client Recorded Date Recorded By Document 04/05/18 16:58 [id number] 04/05/18 17:04 04/05/18 16:58 Wound Center Nurse 2 [Procedure/Treatment] #9 Left Medial-Superior Calf -Time 16:58 -Correct Patient Yes -Correct Side, Site, Position Yes -Correct Procedure Yes -Procedure Performed Yes -Type of Procedure Debridement -Clinical Debridement Subcutaneous -Post Debridement Size (cm) - Length -Post Debridement Size (cm) - Width -Post Debridement Size (cm) - Depth -Total Square Cm -Wound/Ulcer Outcome Not Healed -Ulcer Cleansing Not Cleansed -Foul Odor after Cleansing No -Bioengineered Tissue Yes -Type of bioengineered Tissue EPIFIX -Expiration Date 01/08/23 -Product Lot Number [id number] -Percent Used 50 -Topical Lidocaine (%) 4 -Bleeding Controlled with NA -Treatment Response Procedure Tolerated Well #7- LT INFERIOR CALF CLUSTER -Time 16:58 -Correct Patient Yes -Correct Side, Site, Position Yes -Correct Procedure Yes -Procedure Performed Yes -Type of Procedure Debridement -Clinical Debridement Subcutaneous -Post Debridement Size (cm) - Length -Post Debridement Size (cm) - Width -Post Debridement Size (cm) - Depth -Total Square Cm -Wound/Ulcer Outcome Not Healed -Ulcer Cleansing Not Cleansed -Foul Odor after Cleansing No -Bioengineered Tissue Yes -Type of bioengineered Tissue EPIFIX -Expiration Date 01/08/23 -Product Lot Number [id number] -Percent Used 50 -Topical Lidocaine (%) 4 -Bleeding Controlled with NA -Treatment Response Procedure Tolerated Well [See Physician Procedure note for Specifics] Pain Scale: 0-10 Numeric [Pain] -Is Patient Pain Free? Yes Musculoskeletal: No Tenderness to Palpation of Joints or Extremities, Muscle Wasting Neurological: Sensory exam intact to light touch and pain, - Psych/Mental Status: Normal Affect, Appropriate Debridement Note Post-Debridement Measurements/Treatment WC - Nurse 2 - General Ulcer CM Notes Start: 03/22/18 16:55 Freq: Status: Active Protocol: Activity Type Activity Date Activity User E-Sign Co-Sign Detail Recorded Client Recorded Date Recorded By Document 03/22/18 17:24 [id number] 03/22/18 17:27 Document 03/29/18 17:30 [id number] 03/29/18 17:35 Document 04/05/18 16:58 [id number] 04/05/18 17:04 03/22/18 03/29/18 04/05/18 17:24 17:30 16:58 Wound Center Nurse 2 #9 Left Medial-Superior Calf -Time 17:24 17:30 16:58 -Correct Patient Yes Yes Yes -Correct Side, Site, Position Yes Yes Yes -Correct Procedure Yes Yes Yes -Procedure Performed Yes Yes Yes -Type of Procedure Debridement Debridement Debridement -Clinical Debridement Subcutaneous Subcutaneous Subcutaneous -Post Debridement Size (cm) - Length 1.2 0.8 0.8 -Post Debridement Size (cm) - Width 1.2 0.8 0.6 -Post Debridement Size (cm) - Depth 0.1 0.1 0.1 -Total Square Cm 1.44 0.64 0.48 -Wound/Ulcer Outcome Not Healed Not Healed Not Healed -Ulcer Cleansing Rinsed/ Rinsed/ Not Cleansed Irrigated with Irrigated with Saline Saline -Foul Odor after Cleansing No No No -Bioengineered Tissue Yes Yes Yes -Type of bioengineered Tissue EPIFIX EPIFIX EPIFIX -Expiration Date 12/08/22 01/08/23 01/08/23 -Product Lot Number [id number] -Percent Used 100 100 50 -Saline Lot Number [id number] -Topical Lidocaine (%) 4 -Bleeding Controlled with Pressure NA NA -Treatment Response Procedure Procedure Procedure Tolerated Well Tolerated Well Tolerated Well #7- LT INFERIOR CALF CLUSTER -Time 17:25 17:32 16:58 -Correct Patient Yes Yes Yes -Correct Side, Site, Position Yes Yes Yes -Correct Procedure Yes Yes Yes -Procedure Performed Yes Yes Yes -Type of Procedure Debridement Debridement Debridement -Clinical Debridement Subcutaneous Subcutaneous Subcutaneous -Post Debridement Size (cm) - Length 1.1 1 1.1 -Post Debridement Size (cm) - Width 1.1 0.8 0.8 -Post Debridement Size (cm) - Depth 0.1 0.1 0.1 -Total Square Cm 1.21 0.8 0.88 -Wound/Ulcer Outcome Not Healed Not Healed Not Healed -Ulcer Cleansing Rinsed/ Rinsed/ Not Cleansed Irrigated with Irrigated with Saline Saline -Foul Odor after Cleansing No No No -Bioengineered Tissue Yes Yes Yes -Type of bioengineered Tissue EPIFIX EPIFIX EPIFIX -Expiration Date 12/08/22 01/08/23 01/08/23 -Product Lot Number [id number] -Percent Used 100 100 50 -Saline Lot Number [id number] -Topical Lidocaine (%) 4 -Bleeding Controlled with Pressure NA NA -Treatment Response Procedure Procedure Procedure Tolerated Well Tolerated Well Tolerated Well Pain Scale: 0-10 Numeric Is Patient Pain Free? Yes Yes Yes Wound debrided: leg (inferior) Laterality: Left Type of Debridement: Excisional debridement Anesthesia Used: 5% Lidocaine Gel Depth: in the subcutaneous layer Percentage of wound debrided: 100 Instrument Used: #15 blade Tissue Removed: fibrous, devitalized subcutaneous, biofilm, slough Severity: Fat Layer Exposed Amount of bleeding with debridement: Mild Bleeding Controlled with: Pressure Patient tolerated procedure well predebridement size 0.8 x1.1x0.1 cm, post debridement size 0.9 x 1.2.0.1 cm - Additional Wound Wound debrided: leg (medial superior) Laterality: Left Type of Debridement: Excisional debridement Anesthesia Used: 5% Lidocaine Gel Depth: in the subcutaneous layer Percentage of wound debrided: 100 Instrument Used: #15 blade - predebridement size 0.8 x0.6 x 0.1 cm, post debridement size 0.9 x 0.7 x0.1 cm Tissue Removed: fibrous, devitalized subcutaneous, biofilm, slough Severity: Fat Layer Exposed Amount of bleeding with debridement: Mild Bleeding Controlled with: Pressure Patient tolerated procedure: Patient tolerated procedure well Assessment/Plan Assessment: Venous ulcers of lower extremities left with fat layer exposed (2). Lymphedema. Delayed healing. Chronic pain syndrome. MRSA positive culture Plan: Mauricio's wounds/ulcers were evaluated today. Debridement was performed as noted in the clinical panel. I recommended the application of advanced wound care product, epi fix and verbal consent was obtained prior to application according to standard protocol. He tolerated this well. A wound veil and steri strips were applied to secure this in place. I reviewed reviewed his pathology results which did not demonstrate a malignancy. His culture was positive for MRSA and he has completed a course of Bactrim; to complete the recommended treatment course. He does not have local or systemic signs of illness. His CBC and CMP were reviewed without any gross abnormalities. His ESR was 6 and C-reactive protein was 24.9. He was advised to continue to treat his edema with tubigrips and have him continue to try and use his lymphedema pumps as much as possible. Compliance was discussed. Encourage increased protein intake for improved healing; Xavier prescription was provided at a previous visit. Updated vascular studies and labs were recommend. He had a previous venous Doppler in April 2017 follow-up on his previous deep venous thrombosis in his exam also demonstrated reflux in the left popliteal vein. This is consistent with the diagnosis of venous insufficiency. I recommend vascular reevaluation. It is noted he had previous noninvasive arterial studies in September 2015 with bilateral biphasic waveforms, right PARADISE of 1.41, left PARADISE of 1.42, white toe brachial index of 1.06 and left toe brachial index of 1.05. He had a subsequent duplex arterial study with bilateral calcifications identified with no significant occlusive disease identified. I answered all his questions. To return to clinic in 1 week or call sooner if he has any questions or concerns.
== END 2018-04-08 23:59 ==
LOC: WC 16:30
PROVIDERS: Family Provider Family Medicine; PCP Family Medicine; Visit Provider Podiatrist
DX: I87.2 Venous insufficiency (chronic) (peripheral) (principal); L97.822 Non-pressure chronic ulcer of other part of left lower leg with fat layer exposed; I89.0 Lymphedema, not elsewhere classified; Z22.322 Carrier or suspected carrier of Methicillin resistant Staphylococcus aureus; Z86.718 Personal history of other venous thrombosis and embolism
CPT/HCPCS: 15271; Q4131

== ENCOUNTER 2018-05-03 09:30 | Outpatient (RCR) | payer OTHER, SELFPAY ==
[2018-04-09 00:33] VITALS: BP 127/83; PULSE 73; RESP 18; TEMP 36.9; BMI 43.5
[2018-04-19 16:30] VITALS: BP 167/100; PULSE 86; RESP 18; TEMP 36.1; BMI 43.5
--- NOTE | 2018-04-20 10:32 | PCM.WC.PN ---
(1) Ulcer of left lower extremity with fat layer exposed Status: Chronic Code(s): L97.922 - Non-pressure chronic ulcer of unspecified part of left lower leg with fat layer exposed (2) Venous insufficiency Status: Chronic Code(s): I87.2 - Venous insufficiency (chronic) (peripheral) (3) Chronic pain disorder Status: Chronic Code(s): G89.4 - Chronic pain syndrome Type of Wound Date of Service: 04/19/18 Chief Complaint: Nonhealing venous ulcer of left lower extremity History of Wound: Mauricio is here today for follow up of nonhealing wound of his left lower extremity. He denies fever, chill, nausea, vomiting. He denies new injuries or concerns today. Progress of Wound: Improving - Physical Exam Vital Signs Temp Pulse Resp BP 97 F L 86 18 167/100 H 04/19/18 16:30 04/19/18 16:30 04/19/18 16:30 04/19/18 16:30 General: Alert, Oriented x3, Cooperative Extremities: No cyanosis, Capillary Refill Less than 3 Seconds, No Calf Tenderness - Negative Peace and Delacruz sign bilateral, Diminished Peripheral Pulses, Edema, Tenderness - Compartments of left lower extremity remain soft Skin: Ulcer/ Wound - No purulence, no erythema, streaking, no odor, no infection. There is peripheral epithelialization noted. The peripheral skin is atrophic. There are no exposed deep tissues. Wound Measurements and Assessment WC - Nurse 1 - General Ulcer Measurement Start: 04/19/18 16:29 Freq: Status: Active Protocol: Activity Type Activity Date Activity User E-Sign Co-Sign Detail Recorded Client Recorded Date Recorded By Document 04/19/18 16:30 [id number] 04/19/18 16:40 RB 04/19/18 16:30 Wound Center Nurse 1 [Ulcer Assessment] #9 Left Medial-Superior Calf -Combined with other wound No -Current Size (cm) - Length 0.7 -Current Size (cm) - Width 0.6 -Current Size (cm) - Depth 0.1 -Total Square Cm 0.42 -Photo Taken No -Tunneling No -Undermining/Tunneling No -Circular Undermining No -Classification - Thickness Full Thickness without Exposed Support Structure -Exudate Amt Small (1-33%) -Exudate Type Serosanguineous -Wound Margin Distinct, Outline Attached -Granulation Amt Medium (34-66%) -Granulation Quality [place] Red -Slough/Fibrin Yes -Necrosis Amt Small (1-33%) -Necrotic Tissue Type Adherent Slough -Structure Exposed N/A -Texture (Marie-wound Skin Appearance) Assessed -Moisture (Marie-wound Skin Appearance Assessed ) -Color (Marie-wound Skin Appearance) Assessed -Temperature (Marie-wound Skin No Abnormality Appearance) (Pt Warm) -Tenderness on Palpation (Marie-wound No Skin Appearance) -Ulcer Cleansing Rinsed/ Irrigated with Saline -Foul Odor after Cleansing No -Anesthetic Used 4% Lidocaine Solution #7- LT INFERIOR CALF CLUSTER -Combined with other wound No -Current Size (cm) - Length 0.9 -Current Size (cm) - Width 0.9 -Current Size (cm) - Depth 0.1 -Total Square Cm 0.81 -Photo Taken No -Tunneling No -Undermining/Tunneling No -Circular Undermining No -Classification - Thickness Full Thickness without Exposed Support Structure -Exudate Amt Small (1-33%) -Exudate Type Serosanguineous -Wound Margin Distinct, Outline Attached -Granulation Amt Medium (34-66%) -Granulation Quality [place] Red -Slough/Fibrin Yes -Necrosis Amt Small (1-33%) -Necrotic Tissue Type Adherent Slough -Structure Exposed N/A -Texture (Marie-wound Skin Appearance) Assessed -Moisture (Marie-wound Skin Appearance Dry/Scaly ) -Color (Marie-wound Skin Appearance) Assessed -Temperature (Marie-wound Skin No Abnormality Appearance) (Pt Warm) -Tenderness on Palpation (Marie-wound No Skin Appearance) -Ulcer Cleansing Rinsed/ Irrigated with Saline -Foul Odor after Cleansing No -Anesthetic Used 4% Lidocaine Solution [Edema Assessment] -Lower Limb Edema Present Yes -Left Calf (cm) 44 -Left Ankle (cm) 30.5 WC - Nurse 2 - General Ulcer CM Notes Start: 04/19/18 16:29 Freq: Status: Active Protocol: Activity Type Activity Date Activity User E-Sign Co-Sign Detail Recorded Client Recorded Date Recorded By Document 04/19/18 17:05 [id number] 04/19/18 17:07 04/19/18 17:05 Wound Center Nurse 2 [Procedure/Treatment] #9 Left Medial-Superior Calf -Time 17:05 -Correct Patient Yes -Correct Side, Site, Position Yes -Correct Procedure Yes -Procedure Performed Yes -Type of Procedure Debridement -Clinical Debridement Subcutaneous -Post Debridement Size (cm) - Length 0.8 -Post Debridement Size (cm) - Width 0.7 -Post Debridement Size (cm) - Depth 0.1 -Total Square Cm 0.56 -Wound/Ulcer Outcome Not Healed -Ulcer Cleansing Rinsed/ Irrigated with Saline -Foul Odor after Cleansing No -Bioengineered Tissue Yes -Type of bioengineered Tissue EPIFIX -Expiration Date 01/08/23 -Product Lot Number [id number] -Percent Used 50 -Saline Lot Number [id number] -Topical Lidocaine (%) 4 -Bleeding Controlled with Pressure -Treatment Response Procedure Tolerated Well #7- LT INFERIOR CALF CLUSTER -Time 17:06 -Correct Patient Yes -Correct Side, Site, Position Yes -Correct Procedure Yes -Procedure Performed Yes -Type of Procedure Debridement -Clinical Debridement Subcutaneous -Post Debridement Size (cm) - Length 1.0 -Post Debridement Size (cm) - Width 1.0 -Post Debridement Size (cm) - Depth 0.1 -Total Square Cm 1.00 -Wound/Ulcer Outcome Not Healed -Ulcer Cleansing Rinsed/ Irrigated with Saline -Foul Odor after Cleansing No -Bioengineered Tissue Yes -Type of bioengineered Tissue EPIFIX -Expiration Date 01/08/23 -Product Lot Number [id number] -Percent Used 50 -Saline Lot Number [id number] -Topical Lidocaine (%) 4 -Bleeding Controlled with Pressure -Treatment Response Procedure Tolerated Well [See Physician Procedure note for Specifics] Pain Scale: 0-10 Numeric [Pain] -Is Patient Pain Free? Yes Musculoskeletal: No Tenderness to Palpation of Joints or Extremities, Muscle Wasting Neurological: Sensory exam intact to light touch and pain Psych/Mental Status: Normal Affect, Appropriate Debridement Note Post-Debridement Measurements/Treatment WC - Nurse 2 - General Ulcer CM Notes Start: 04/19/18 16:29 Freq: Status: Active Protocol: Activity Type Activity Date Activity User E-Sign Co-Sign Detail Recorded Client Recorded Date Recorded By Document 04/19/18 17:05 TM [id number] 04/19/18 17:07 TM 04/19/18 17:05 Wound Center Nurse 2 #9 Left Medial-Superior Calf -Time 17:05 -Correct Patient Yes -Correct Side, Site, Position Yes -Correct Procedure Yes -Procedure Performed Yes -Type of Procedure Debridement -Clinical Debridement Subcutaneous -Post Debridement Size (cm) - Length 0.8 -Post Debridement Size (cm) - Width 0.7 -Post Debridement Size (cm) - Depth 0.1 -Total Square Cm 0.56 -Wound/Ulcer Outcome Not Healed -Ulcer Cleansing Rinsed/ Irrigated with Saline -Foul Odor after Cleansing No -Bioengineered Tissue Yes -Type of bioengineered Tissue EPIFIX -Expiration Date 01/08/23 -Product Lot Number [id number] -Percent Used 50 -Saline Lot Number [id number] -Topical Lidocaine (%) 4 -Bleeding Controlled with Pressure -Treatment Response Procedure Tolerated Well #7- LT INFERIOR CALF CLUSTER -Time 17:06 -Correct Patient Yes -Correct Side, Site, Position Yes -Correct Procedure Yes -Procedure Performed Yes -Type of Procedure Debridement -Clinical Debridement Subcutaneous -Post Debridement Size (cm) - Length 1.0 -Post Debridement Size (cm) - Width 1.0 -Post Debridement Size (cm) - Depth 0.1 -Total Square Cm 1.00 -Wound/Ulcer Outcome Not Healed -Ulcer Cleansing Rinsed/ Irrigated with Saline -Foul Odor after Cleansing No -Bioengineered Tissue Yes -Type of bioengineered Tissue EPIFIX -Expiration Date 01/08/23 -Product Lot Number [id number] -Percent Used 50 -Saline Lot Number [id number] -Topical Lidocaine (%) 4 -Bleeding Controlled with Pressure -Treatment Response Procedure Tolerated Well Pain Scale: 0-10 Numeric Is Patient Pain Free? Yes Wound debrided: lateral leg Laterality: Left Type of Debridement: Excisional debridement Anesthesia Used: 5% Lidocaine Gel Depth: in the subcutaneous layer Percentage of wound debrided: 100 Instrument Used: #15 blade Tissue Removed: fibrous, devitalized subcutaneous, biofilm, slough Severity: Fat Layer Exposed Amount of bleeding with debridement: Mild Bleeding Controlled with: Pressure Patient did not tolerate procedure well Assessment/Plan Assessment: Venous ulcers of lower extremities left with fat layer exposed (2). Lymphedema. Delayed healing. Chronic pain syndrome. MRSA positive culture -previously treated medically Plan: on 04/19/2018. I reviewed his wound and case today. Debridement was performed as noted in the clinical panel. I recommended the application of advanced wound care product, epi fix and verbal consent was obtained prior to application according to standard protocol. He tolerated this well. A wound veil of Adaptic and steri strips were applied to secure this in place. I previously reviewed his pathology results which did not demonstrate a malignancy. His culture was previously positive for MRSA and he has completed a course of Bactrim; to complete the recommended treatment course. He does not have local or systemic signs of illness today. His CBC and CMP were reviewed without any gross abnormalities. His ESR was 6 and C-reactive protein was 24.9. He was advised to continue to treat his edema with tubigrips and have him continue to try and use his lymphedema pumps as much as possible. Compliance was discussed. Encourage increased protein intake for improved healing; Xavier prescription was provided at a previous visit. Updated vascular studies and labs were recommend. He had a previous venous Doppler in April 2017 follow-up on his previous deep venous thrombosis in his exam also demonstrated reflux in the left popliteal vein. This is consistent with the diagnosis of venous insufficiency. I recommend vascular reevaluation and a referral was provided. It is noted he had previous noninvasive arterial studies in September 2015 with bilateral biphasic waveforms, right PARADISE of 1.41, left PARADISE of 1.42, white toe brachial index of 1.06 and left toe brachial index of 1.05. He had a subsequent duplex arterial study with bilateral calcifications identified with no significant occlusive disease identified. I answered all his questions. To return to clinic in 1 week or call sooner if he has any questions or concerns.
--- NOTE | 2018-04-20 10:37 | PN.PCM_ITS ---
(1) Ulcer of left lower extremity with fat layer exposed Status: Chronic Code(s): L97.922 - Non-pressure chronic ulcer of unspecified part of left lower leg with fat layer exposed (2) Venous insufficiency Status: Chronic Code(s): I87.2 - Venous insufficiency (chronic) (peripheral) (3) Chronic pain disorder Status: Chronic Code(s): G89.4 - Chronic pain syndrome Type of Wound Date of Service: 04/19/18 Chief Complaint: Nonhealing venous ulcer of left lower extremity History of Wound: Mauricio is here today for follow up of nonhealing wound of his left lower extremity. He denies fever, chill, nausea, vomiting. He denies new injuries or concerns today. Progress of Wound: Improving - Physical Exam Vital Signs Temp Pulse Resp BP 97 F L 86 18 167/100 H 04/19/18 16:30 04/19/18 16:30 04/19/18 16:30 04/19/18 16:30 General: Alert, Oriented x3, Cooperative Extremities: No cyanosis, Capillary Refill Less than 3 Seconds, No Calf Tenderness - Negative Peace and Delacruz sign bilateral, Diminished Peripheral Pulses, Edema, Tenderness - Compartments of left lower extremity remain soft Skin: Ulcer/ Wound - No purulence, no erythema, streaking, no odor, no infection. There is peripheral epithelialization noted. The peripheral skin is atrophic. There are no exposed deep tissues. Wound Measurements and Assessment WC - Nurse 1 - General Ulcer Measurement Start: 04/19/18 16:29 Freq: Status: Active Protocol: Activity Type Activity Date Activity User E-Sign Co-Sign Detail Recorded Client Recorded Date Recorded By Document 04/19/18 16:30 [id number] 04/19/18 16:40 RB 04/19/18 16:30 Wound Center Nurse 1 [Ulcer Assessment] #9 Left Medial-Superior Calf -Combined with other wound No -Current Size (cm) - Length 0.7 -Current Size (cm) - Width 0.6 -Current Size (cm) - Depth 0.1 -Total Square Cm 0.42 -Photo Taken No -Tunneling No -Undermining/Tunneling No -Circular Undermining No -Classification - Thickness Full Thickness without Exposed Support Structure -Exudate Amt Small (1-33%) -Exudate Type Serosanguineous -Wound Margin Distinct, Outline Attached -Granulation Amt Medium (34-66%) -Granulation Quality [place] Red -Slough/Fibrin Yes -Necrosis Amt Small (1-33%) -Necrotic Tissue Type Adherent Slough -Structure Exposed N/A -Texture (Marie-wound Skin Appearance) Assessed -Moisture (Marie-wound Skin Appearance Assessed ) -Color (Marie-wound Skin Appearance) Assessed -Temperature (Marie-wound Skin No Abnormality Appearance) (Pt Warm) -Tenderness on Palpation (Marie-wound No Skin Appearance) -Ulcer Cleansing Rinsed/ Irrigated with Saline -Foul Odor after Cleansing No -Anesthetic Used 4% Lidocaine Solution #7- LT INFERIOR CALF CLUSTER -Combined with other wound No -Current Size (cm) - Length 0.9 -Current Size (cm) - Width 0.9 -Current Size (cm) - Depth 0.1 -Total Square Cm 0.81 -Photo Taken No -Tunneling No -Undermining/Tunneling No -Circular Undermining No -Classification - Thickness Full Thickness without Exposed Support Structure -Exudate Amt Small (1-33%) -Exudate Type Serosanguineous -Wound Margin Distinct, Outline Attached -Granulation Amt Medium (34-66%) -Granulation Quality [place] Red -Slough/Fibrin Yes -Necrosis Amt Small (1-33%) -Necrotic Tissue Type Adherent Slough -Structure Exposed N/A -Texture (Marie-wound Skin Appearance) Assessed -Moisture (Marie-wound Skin Appearance Dry/Scaly ) -Color (Marie-wound Skin Appearance) Assessed -Temperature (Marie-wound Skin No Abnormality Appearance) (Pt Warm) -Tenderness on Palpation (Marie-wound No Skin Appearance) -Ulcer Cleansing Rinsed/ Irrigated with Saline -Foul Odor after Cleansing No -Anesthetic Used 4% Lidocaine Solution [Edema Assessment] -Lower Limb Edema Present Yes -Left Calf (cm) 44 -Left Ankle (cm) 30.5 WC - Nurse 2 - General Ulcer CM Notes Start: 04/19/18 16:29 Freq: Status: Active Protocol: Activity Type Activity Date Activity User E-Sign Co-Sign Detail Recorded Client Recorded Date Recorded By Document 04/19/18 17:05 [id number] 04/19/18 17:07 04/19/18 17:05 Wound Center Nurse 2 [Procedure/Treatment] #9 Left Medial-Superior Calf -Time 17:05 -Correct Patient Yes -Correct Side, Site, Position Yes -Correct Procedure Yes -Procedure Performed Yes -Type of Procedure Debridement -Clinical Debridement Subcutaneous -Post Debridement Size (cm) - Length 0.8 -Post Debridement Size (cm) - Width 0.7 -Post Debridement Size (cm) - Depth 0.1 -Total Square Cm 0.56 -Wound/Ulcer Outcome Not Healed -Ulcer Cleansing Rinsed/ Irrigated with Saline -Foul Odor after Cleansing No -Bioengineered Tissue Yes -Type of bioengineered Tissue EPIFIX -Expiration Date 01/08/23 -Product Lot Number [id number] -Percent Used 50 -Saline Lot Number [id number] -Topical Lidocaine (%) 4 -Bleeding Controlled with Pressure -Treatment Response Procedure Tolerated Well #7- LT INFERIOR CALF CLUSTER -Time 17:06 -Correct Patient Yes -Correct Side, Site, Position Yes -Correct Procedure Yes -Procedure Performed Yes -Type of Procedure Debridement -Clinical Debridement Subcutaneous -Post Debridement Size (cm) - Length 1.0 -Post Debridement Size (cm) - Width 1.0 -Post Debridement Size (cm) - Depth 0.1 -Total Square Cm 1.00 -Wound/Ulcer Outcome Not Healed -Ulcer Cleansing Rinsed/ Irrigated with Saline -Foul Odor after Cleansing No -Bioengineered Tissue Yes -Type of bioengineered Tissue EPIFIX -Expiration Date 01/08/23 -Product Lot Number [id number] -Percent Used 50 -Saline Lot Number [id number] -Topical Lidocaine (%) 4 -Bleeding Controlled with Pressure -Treatment Response Procedure Tolerated Well [See Physician Procedure note for Specifics] Pain Scale: 0-10 Numeric [Pain] -Is Patient Pain Free? Yes Musculoskeletal: No Tenderness to Palpation of Joints or Extremities, Muscle Wasting Neurological: Sensory exam intact to light touch and pain Psych/Mental Status: Normal Affect, Appropriate Debridement Note Post-Debridement Measurements/Treatment WC - Nurse 2 - General Ulcer CM Notes Start: 04/19/18 16:29 Freq: Status: Active Protocol: Activity Type Activity Date Activity User E-Sign Co-Sign Detail Recorded Client Recorded Date Recorded By Document 04/19/18 17:05 TM [id number] 04/19/18 17:07 TM 04/19/18 17:05 Wound Center Nurse 2 #9 Left Medial-Superior Calf -Time 17:05 -Correct Patient Yes -Correct Side, Site, Position Yes -Correct Procedure Yes -Procedure Performed Yes -Type of Procedure Debridement -Clinical Debridement Subcutaneous -Post Debridement Size (cm) - Length 0.8 -Post Debridement Size (cm) - Width 0.7 -Post Debridement Size (cm) - Depth 0.1 -Total Square Cm 0.56 -Wound/Ulcer Outcome Not Healed -Ulcer Cleansing Rinsed/ Irrigated with Saline -Foul Odor after Cleansing No -Bioengineered Tissue Yes -Type of bioengineered Tissue EPIFIX -Expiration Date 01/08/23 -Product Lot Number [id number] -Percent Used 50 -Saline Lot Number [id number] -Topical Lidocaine (%) 4 -Bleeding Controlled with Pressure -Treatment Response Procedure Tolerated Well #7- LT INFERIOR CALF CLUSTER -Time 17:06 -Correct Patient Yes -Correct Side, Site, Position Yes -Correct Procedure Yes -Procedure Performed Yes -Type of Procedure Debridement -Clinical Debridement Subcutaneous -Post Debridement Size (cm) - Length 1.0 -Post Debridement Size (cm) - Width 1.0 -Post Debridement Size (cm) - Depth 0.1 -Total Square Cm 1.00 -Wound/Ulcer Outcome Not Healed -Ulcer Cleansing Rinsed/ Irrigated with Saline -Foul Odor after Cleansing No -Bioengineered Tissue Yes -Type of bioengineered Tissue EPIFIX -Expiration Date 01/08/23 -Product Lot Number [id number] -Percent Used 50 -Saline Lot Number [id number] -Topical Lidocaine (%) 4 -Bleeding Controlled with Pressure -Treatment Response Procedure Tolerated Well Pain Scale: 0-10 Numeric Is Patient Pain Free? Yes Wound debrided: lateral leg Laterality: Left Type of Debridement: Excisional debridement Anesthesia Used: 5% Lidocaine Gel Depth: in the subcutaneous layer Percentage of wound debrided: 100 Instrument Used: #15 blade Tissue Removed: fibrous, devitalized subcutaneous, biofilm, slough Severity: Fat Layer Exposed Amount of bleeding with debridement: Mild Bleeding Controlled with: Pressure Patient did not tolerate procedure well Assessment/Plan Assessment: Venous ulcers of lower extremities left with fat layer exposed (2). Lymphedema. Delayed healing. Chronic pain syndrome. MRSA positive culture - previously treated medically Plan: on 04/19/2018. I reviewed his wound and case today. Debridement was performed as noted in the clinical panel. I recommended the application of advanced wound care product, epi fix and verbal consent was obtained prior to application according to standard protocol. He tolerated this well. A wound veil of Adaptic and steri strips were applied to secure this in place. I previously reviewed his pathology results which did not demonstrate a malignancy. His culture was previously positive for MRSA and he has completed a course of Bactrim; to complete the recommended treatment course. He does not have local or systemic signs of illness today. His CBC and CMP were reviewed without any gross abnormalities. His ESR was 6 and C-reactive protein was 24.9. He was advised to continue to treat his edema with tubigrips and have him continue to try and use his lymphedema pumps as much as possible. Compliance was discussed. Encourage increased protein intake for improved healing; Xavier prescription was provided at a previous visit. Updated vascular studies and labs were recommend. He had a previous venous Doppler in April 2017 follow-up on his previous deep venous thrombosis in his exam also demonstrated reflux in the left popliteal vein. This is consistent with the diagnosis of venous insufficiency. I recommend vascular reevaluation and a referral was provided. It is noted he had previous noninvasive arterial studies in September 2015 with bilateral biphasic waveforms, right PARADISE of 1.41, left PARADISE of 1.42, white toe brachial index of 1.06 and left toe brachial index of 1.05. He had a subsequent duplex arterial study with bilateral calcifications identified with no significant occlusive disease identified. I answered all his questions. To return to clinic in 1 week or call sooner if he has any questions or concerns.
[2018-04-26 09:30] VITALS: BP 145/93; PULSE 65; RESP 18; TEMP 36.1; BMI 43.5
--- NOTE | 2018-04-26 10:37 | PN.PCM_ITS ---
(1) Ulcer of left lower extremity with fat layer exposed Status: Chronic Current Visit: Yes Code(s): L97.922 - Non-pressure chronic ulcer of unspecified part of left lower leg with fat layer exposed (2) Venous insufficiency Status: Chronic Current Visit: Yes Code(s): I87.2 - Venous insufficiency ( chronic) (peripheral) (3) Chronic pain disorder Status: Chronic Current Visit: Yes Code(s): G89.4 - Chronic pain syndrome Type of Wound Date of Service: 04/27/18 Chief Complaint: Nonhealing venous ulcer of left lower extremity History of Wound: Mauricio is here today for follow up of nonhealing wound of his left lower extremity. He denies fever, chill, nausea, vomiting. He denies new injuries or concerns today. He relates his wound is draining less and he is worried because his skin feels drier operator head at this site. He relates he did not tolerate the Adaptic last week. Progress of Wound: Improving - Physical Exam Vital Signs Temp Pulse Resp BP 97 F L 65 18 145/93 H 04/26/18 09:30 04/26/18 09:30 04/26/18 09:30 04/26/18 09:30 General: Alert, Oriented x3, Cooperative Extremities: No cyanosis, No edema, No Calf Tenderness, Diminished Peripheral Pulses, Edema Skin: Ulcer/ Wound - No purulence, no erythema, streaking, no odor, no infection. Peripheral epithelialization is noted. There is less drainage. Wound beds appear healthy. His peripheral skin is atrophic. Wound Measurements and Assessment WC - Nurse 1 - General Ulcer Measurement Start: 04/19/18 16:29 Freq: Status: Active Protocol: Activity Type Activity Date Activity User E-Sign Co-Sign Detail Recorded Client Recorded Date Recorded By Document 04/26/18 09:30 RB [id number] 04/26/18 09:49 RB 04/26/18 09:30 Wound Center Nurse 1 [Ulcer Assessment] #9 Left Medial-Superior Calf -Combined with other wound No -Current Size (cm) - Length 0.5 -Current Size (cm) - Width 0.5 -Current Size (cm) - Depth 0.1 -Total Square Cm 0.25 -Photo Taken No -Tunneling No -Undermining/Tunneling No -Circular Undermining No -Classification - Thickness Full Thickness without Exposed Support Structure -Exudate Amt Small (1-33%) -Exudate Type Serosanguineous -Wound Margin Distinct, Outline Attached -Granulation Amt Medium (34-66%) -Granulation Quality Dunlo -Slough/Fibrin Yes -Necrosis Amt Small (1-33%) -Necrotic Tissue Type Adherent Slough -Structure Exposed N/A -Texture (Marie-wound Skin Appearance) Assessed -Moisture (Marie-wound Skin Appearance Assessed ) -Color (Marie-wound Skin Appearance) Assessed -Temperature (Marie-wound Skin No Abnormality Appearance) (Pt Warm) -Tenderness on Palpation (Marie-wound No Skin Appearance) -Ulcer Cleansing Rinsed/ Irrigated with Saline -Foul Odor after Cleansing No -Anesthetic Used 4% Lidocaine Solution #7- LT INFERIOR CALF CLUSTER -Current Size (cm) - Length 1.2 -Current Size (cm) - Width 0.5 -Current Size (cm) - Depth 0.1 -Total Square Cm 0.60 -Photo Taken No -Tunneling No -Undermining/Tunneling No -Circular Undermining No -Classification - Thickness Full Thickness without Exposed Support Structure -Exudate Amt Small (1-33%) -Exudate Type Serosanguineous -Wound Margin Distinct, Outline Attached -Granulation Amt Medium (34-66%) -Granulation Quality Dunlo -Slough/Fibrin Yes -Necrosis Amt Small (1-33%) -Necrotic Tissue Type Adherent Slough -Structure Exposed N/A -Texture (Marie-wound Skin Appearance) Assessed -Moisture (Marie-wound Skin Appearance Assessed ) -Color (Marie-wound Skin Appearance) Assessed -Temperature (Marie-wound Skin No Abnormality Appearance) (Pt Warm) -Tenderness on Palpation (Marie-wound No Skin Appearance) -Ulcer Cleansing Rinsed/ Irrigated with Saline -Foul Odor after Cleansing No -Anesthetic Used 4% Lidocaine Solution [Edema Assessment] -Lower Limb Edema Present Yes -Point of measurement (cm from the 44.5 medial instep) -Point of Measurement (cm from the 27.7 medial instep) WC - Nurse 2 - General Ulcer CM Notes Start: 04/19/18 16:29 Freq: Status: Active Protocol: Activity Type Activity Date Activity User E-Sign Co-Sign Detail Recorded Client Recorded Date Recorded By Document 04/26/18 10:27 [id number] 04/26/18 10:31 TM 04/26/18 10:27 Wound Center Nurse 2 [Procedure/Treatment] #9 Left Medial-Superior Calf -Time 10:28 -Correct Patient Yes -Correct Side, Site, Position Yes -Correct Procedure Yes -Procedure Performed Yes -Type of Procedure Debridement -Clinical Debridement Subcutaneous -Post Debridement Size (cm) - Length 0.6 -Post Debridement Size (cm) - Width 0.6 -Post Debridement Size (cm) - Depth 0.1 -Total Square Cm 0.36 -Wound/Ulcer Outcome Not Healed -Ulcer Cleansing Rinsed/ Irrigated with Saline -Foul Odor after Cleansing No -Bioengineered Tissue Yes -Type of bioengineered Tissue EPIFIX -Expiration Date 02/07/23 -Product Lot Number [id number] -Percent Used 100 -Saline Lot Number [id number] -Topical Lidocaine (%) 4 -Bleeding Controlled with Pressure -Treatment Response Procedure Tolerated Well #7- LT INFERIOR CALF CLUSTER -Time 10:29 -Correct Patient Yes -Correct Side, Site, Position Yes -Correct Procedure Yes -Procedure Performed Yes -Type of Procedure Debridement -Clinical Debridement Subcutaneous -Post Debridement Size (cm) - Length 1.3 -Post Debridement Size (cm) - Width 0.6 -Post Debridement Size (cm) - Depth 0.1 -Total Square Cm 0.78 -Wound/Ulcer Outcome Not Healed -Ulcer Cleansing Rinsed/ Irrigated with Saline -Foul Odor after Cleansing No -Bioengineered Tissue Yes -Type of bioengineered Tissue EPIFIX -Expiration Date 02/07/23 -Product Lot Number [id number] -Percent Used 100 -Saline Lot Number [id number] -Topical Lidocaine (%) 4 -Bleeding Controlled with Pressure -Treatment Response Procedure Tolerated Well [See Physician Procedure note for Specifics] Pain Scale: 0-10 Numeric [Pain] -Is Patient Pain Free? Yes Musculoskeletal: No Tenderness to Palpation of Joints or Extremities, Muscle Wasting, - - Compartment left lower extremity remain soft Neurological: - - Lack of epicritic sensation light touch left lower extremity Psych/Mental Status: Normal Affect, Appropriate Debridement Note Post-Debridement Measurements/Treatment WC - Nurse 2 - General Ulcer CM Notes Start: 04/19/18 16:29 Freq: Status: Active Protocol: Activity Type Activity Date Activity User E-Sign Co-Sign Detail Recorded Client Recorded Date Recorded By Document 04/19/18 17:05 [id number] 04/19/18 17:07 TM Document 04/26/18 10:27 [id number] 04/26/18 10:31 04/19/18 04/26/18 17:05 10:27 Wound Center Nurse 2 #9 Left Medial-Superior Calf -Time 17:05 10:28 -Correct Patient Yes Yes -Correct Side, Site, Position Yes Yes -Correct Procedure Yes Yes -Procedure Performed Yes Yes -Type of Procedure Debridement Debridement -Clinical Debridement Subcutaneous Subcutaneous -Post Debridement Size (cm) - Length 0.8 0.6 -Post Debridement Size (cm) - Width 0.7 0.6 -Post Debridement Size (cm) - Depth 0.1 0.1 -Total Square Cm 0.56 0.36 -Wound/Ulcer Outcome Not Healed Not Healed -Ulcer Cleansing Rinsed/ Rinsed/ Irrigated with Irrigated with Saline Saline -Foul Odor after Cleansing No No -Bioengineered Tissue Yes Yes -Type of bioengineered Tissue EPIFIX EPIFIX -Expiration Date 01/08/23 02/07/23 -Product Lot Number [id number] -Percent Used 50 100 -Saline Lot Number [id number] -Topical Lidocaine (%) 4 4 -Bleeding Controlled with Pressure Pressure -Treatment Response Procedure Procedure Tolerated Well Tolerated Well #7- LT INFERIOR CALF CLUSTER -Time 17:06 10:29 -Correct Patient Yes Yes -Correct Side, Site, Position Yes Yes -Correct Procedure Yes Yes -Procedure Performed Yes Yes -Type of Procedure Debridement Debridement -Clinical Debridement Subcutaneous Subcutaneous -Post Debridement Size (cm) - Length 1.0 1.3 -Post Debridement Size (cm) - Width 1.0 0.6 -Post Debridement Size (cm) - Depth 0.1 0.1 -Total Square Cm 1.00 0.78 -Wound/Ulcer Outcome Not Healed Not Healed -Ulcer Cleansing Rinsed/ Rinsed/ Irrigated with Irrigated with Saline Saline -Foul Odor after Cleansing No No -Bioengineered Tissue Yes Yes -Type of bioengineered Tissue EPIFIX EPIFIX -Expiration Date 01/08/23 02/07/23 -Product Lot Number [id number] -Percent Used 50 100 -Saline Lot Number [id number] -Topical Lidocaine (%) 4 4 -Bleeding Controlled with Pressure Pressure -Treatment Response Procedure Procedure Tolerated Well Tolerated Well Pain Scale: 0-10 Numeric Is Patient Pain Free? Yes Yes Wound debrided: leg Laterality: Left Type of Debridement: Excisional debridement Anesthesia Used: 5% Lidocaine Gel Depth: in the subcutaneous layer Percentage of wound debrided: 100 Instrument Used: #15 blade Tissue Removed: devitalized subcutaneous, biofilm, slough, fibrous Severity: Fat Layer Exposed Amount of bleeding with debridement: Mild Bleeding Controlled with: Pressure Patient tolerated procedure well Assessment/Plan Active Problems Ulcer of left lower extremity with fat layer exposed (Chronic) Venous insufficiency (Chronic) Chronic pain disorder (Chronic) Assessment: Venous ulcers of lower extremities left with fat layer exposed (2). Lymphedema. Delayed healing. Chronic pain syndrome. MRSA positive culture - previously treated medically Plan: I reviewed his wound and case today. Debridement was performed as noted in the clinical panel. I recommended the application of advanced wound care product, epi fix and verbal consent was obtained prior to application according to standard protocol. He tolerated this well. A wound veil of moistened woven gauze and steri strips were applied to secure this in place. I previously reviewed his pathology results which did not demonstrate a malignancy. His culture was previously positive for MRSA and he has completed a course of Bactrim; to complete the recommended treatment course. He does not have local or systemic signs of illness today. His CBC and CMP were reviewed without any gross abnormalities. His ESR was 6 and C-reactive protein was 24.9. He was advised to continue to treat his edema with tubigrips and have him continue to try and use his lymphedema pumps as much as possible. Compliance was discussed. Encourage increased protein intake for improved healing; Xavier prescription was provided at a previous visit. Updated vascular studies and labs were recommend. He had a previous venous Doppler in April 2017 follow-up on his previous deep venous thrombosis in his exam also demonstrated reflux in the left popliteal vein. This is consistent with the diagnosis of venous insufficiency. I recommend vascular reevaluation and a referral was provided. It is noted he had previous noninvasive arterial studies in September 2015 with bilateral biphasic waveforms, right PARADISE of 1.41, left PARADISE of 1.42, white toe brachial index of 1.06 and left toe brachial index of 1.05. He had a subsequent duplex arterial study with bilateral calcifications identified with no significant occlusive disease identified. I answered all his questions. To return to clinic in 1 week or call sooner if he has any questions or concerns.
[2018-05-03 10:33] VITALS: BP 122/86; PULSE 70; RESP 16; TEMP 36.2; BMI 43.5
--- NOTE | 2018-05-03 11:44 | PCM.WC.PN ---
(1) Ulcer of left lower extremity with fat layer exposed Status: Chronic Current Visit: Yes Code(s): L97.922 - Non-pressure chronic ulcer of unspecified part of left lower leg with fat layer exposed (2) Venous insufficiency Status: Chronic Current Visit: Yes Code(s): I87.2 - Venous insufficiency (chronic) (peripheral) (3) Chronic pain disorder Status: Chronic Current Visit: Yes Code(s): G89.4 - Chronic pain syndrome Type of Wound Date of Service: 05/03/18 Chief Complaint: Nonhealing venous ulcer of left lower extremity History of Wound: Mauricio is here today for follow up of nonhealing wound of his left lower extremity. He denies fever, chill, nausea, vomiting. He denies new injuries or concerns today. She also reports a new wound to the back of his leg. He is not sure if he scraped this well descending the stairs, or his stretching night splint rubs this area, or he just had increased edema that broke the skin. He denies redness or odors. Progress of Wound: Improving. New posterior left leg wound - Physical Exam Vital Signs Temp Pulse Resp BP 97.1 F L 70 16 122/86 H 05/03/18 10:33 05/03/18 10:33 05/03/18 10:33 05/03/18 10:33 General: Alert, Oriented x3, Cooperative Extremities: No cyanosis, Capillary Refill Less than 3 Seconds, No Calf Tenderness - Negative Peace and Delacruz sign bilateral, Diminished Peripheral Pulses, Edema Skin: Ulcer/ Wound - No purulence, erythema, streaking, odor, or infection. There is peripheral epithelialization noted at the 2 chronic wound sites in the wound base is granular without inflammation. There is new skin discontinuity to the posterior aspect of the leg that is superficial with subcutaneous tissue layer exposed. No infection or necrosis or deep tissue is noted. Wound Measurements and Assessment WC - Nurse 1 - General Ulcer Measurement Start: 04/19/18 16:29 Freq: Status: Active Protocol: Activity Type Activity Date Activity User E-Sign Co-Sign Detail Recorded Client Recorded Date Recorded By Document 05/03/18 10:33 [facility] [id number] 05/03/18 10:47 [facility] 05/03/18 10:33 Wound Center Nurse 1 [Ulcer Assessment] #10- LT CALF CLUSTER -Combined with other wound No -Current Size (cm) - Length 1.8 -Current Size (cm) - Width 0.7 -Current Size (cm) - Depth 0.1 -Total Square Cm 1.26 -Date of Last Picture (Recall this 05/03/18 field) -Photo Taken Yes -Epithelialization None Present -Tunneling No -Undermining/Tunneling No -Circular Undermining No -Exudate Amt Small (1-33%) -Exudate Type Serosanguineous -Wound Margin Distinct, Outline Attached -Granulation Amt Small (1-33%) -Granulation Quality Red -Slough/Fibrin Yes -Necrosis Amt Large (67-100%) -Necrotic Tissue Type Adherent Slough -Texture (Marie-wound Skin Appearance) Scarring -Moisture (Marie-wound Skin Appearance Dry/Scaly ) -Color (Mraie-wound Skin Appearance) Hemosiderin Staining -Temperature (Marie-wound Skin No Abnormality Appearance) (Pt Warm) -Tenderness on Palpation (Marie-wound No Skin Appearance) -Ulcer Cleansing Rinsed/ Irrigated with Saline -Foul Odor after Cleansing No -Anesthetic Used 4% Lidocaine Solution #9 Left Medial-Superior Calf -Combined with other wound No -Current Size (cm) - Length 0.8 -Current Size (cm) - Width 0.7 -Current Size (cm) - Depth 0.1 -Total Square Cm 0.56 -Photo Taken No -Epithelialization Small 1-33% -Tunneling No -Undermining/Tunneling No -Circular Undermining No -Exudate Amt Small (1-33%) -Exudate Type Serosanguineous -Wound Margin Distinct, Outline Attached -Granulation Amt None Present (0 %) -Slough/Fibrin Yes -Necrosis Amt Large (67-100%) -Necrotic Tissue Type Adherent Slough -Structure Exposed N/A -Texture (Marie-wound Skin Appearance) Scarring -Moisture (Marie-wound Skin Appearance Dry/Scaly ) -Color (Marie-wound Skin Appearance) Hemosiderin Staining -Temperature (Marie-wound Skin No Abnormality Appearance) (Pt Warm) -Tenderness on Palpation (Marie-wound No Skin Appearance) -Ulcer Cleansing Rinsed/ Irrigated with Saline -Foul Odor after Cleansing No -Anesthetic Used 4% Lidocaine Solution #7- LT INFERIOR CALF CLUSTER -Combined with other wound No -Current Size (cm) - Length 0.8 -Current Size (cm) - Width 0.9 -Current Size (cm) - Depth 0.2 -Total Square Cm 0.72 -Photo Taken No -Epithelialization None Present -Tunneling No -Undermining/Tunneling No -Circular Undermining No -Exudate Amt Small (1-33%) -Exudate Type Serosanguineous -Wound Margin Distinct, Outline Attached -Granulation Amt Small (1-33%) -Granulation Quality Red -Slough/Fibrin Yes -Necrosis Amt Large (67-100%) -Necrotic Tissue Type Adherent Slough -Structure Exposed N/A -Texture (Marie-wound Skin Appearance) Scarring -Moisture (Marie-wound Skin Appearance Dry/Scaly ) -Color (Marie-wound Skin Appearance) Hemosiderin Staining -Temperature (Marie-wound Skin No Abnormality Appearance) (Pt Warm) -Tenderness on Palpation (Marie-wound No Skin Appearance) -Ulcer Cleansing Rinsed/ Irrigated with Saline -Foul Odor after Cleansing No -Anesthetic Used 4% Lidocaine Solution [Edema Assessment] -Lower Limb Edema Present Yes -Left Calf (cm) 43.1 -Left Ankle (cm) 29.6 WC - Nurse 2 - General Ulcer CM Notes Start: 04/19/18 16:29 Freq: Status: Active Protocol: Activity Type Activity Date Activity User E-Sign Co-Sign Detail Recorded Client Recorded Date Recorded By Document 05/03/18 11:05 KARTHIK [id number] 05/03/18 11:08 KARTHIK 05/03/18 11:05 Wound Center Nurse 2 [Procedure/Treatment] #10- LT CALF CLUSTER -Time 11:05 -Correct Patient Yes -Correct Side, Site, Position Yes -Correct Procedure Yes -Procedure Performed Yes -Type of Procedure Debridement -Clinical Debridement Subcutaneous -Post Debridement Size (cm) - Length 1.8 -Post Debridement Size (cm) - Width 0.8 -Post Debridement Size (cm) - Depth 0.1 -Total Square Cm 1.44 -Wound/Ulcer Outcome Not Healed -Ulcer Cleansing Rinsed/ Irrigated with Saline -Foul Odor after Cleansing Yes -Bioengineered Tissue Yes -Type of bioengineered Tissue EPIFIX -Expiration Date 01/08/23 -Product Lot Number [id number] -Percent Used 100 -Saline Lot Number [id number] -Bleeding Controlled with Pressure -Treatment Response Procedure Tolerated Well #9 Left Medial-Superior Calf -Time 11:06 -Correct Patient Yes -Correct Side, Site, Position Yes -Correct Procedure Yes -Procedure Performed Yes -Type of Procedure Debridement -Clinical Debridement Subcutaneous -Post Debridement Size (cm) - Length 0.8 -Post Debridement Size (cm) - Width 0.8 -Post Debridement Size (cm) - Depth 0.1 -Total Square Cm 0.64 -Wound/Ulcer Outcome Not Healed -Ulcer Cleansing Rinsed/ Irrigated with Saline -Foul Odor after Cleansing No -Bioengineered Tissue Yes -Type of bioengineered Tissue EPIFIX -Expiration Date 01/08/23 -Product Lot Number [id number] -Percent Used 100 -Saline Lot Number [id number] -Bleeding Controlled with Pressure -Treatment Response Procedure Tolerated Well #7- LT INFERIOR CALF CLUSTER -Time 11:06 -Correct Patient Yes -Correct Side, Site, Position Yes -Correct Procedure Yes -Procedure Performed Yes -Type of Procedure Debridement -Clinical Debridement Subcutaneous -Post Debridement Size (cm) - Length 0.9 -Post Debridement Size (cm) - Width 0.9 -Post Debridement Size (cm) - Depth 0.1 -Total Square Cm 0.81 -Wound/Ulcer Outcome Not Healed -Ulcer Cleansing Rinsed/ Irrigated with Saline -Foul Odor after Cleansing No -Bioengineered Tissue Yes -Type of bioengineered Tissue EPIFIX -Expiration Date 01/08/23 -Product Lot Number [id number] -Percent Used 100 -Saline Lot Number [id number] -Bleeding Controlled with Pressure -Treatment Response Procedure Tolerated Well [See Physician Procedure note for Specifics] Pain Scale: 0-10 Numeric [Pain] -Is Patient Pain Free? Yes Musculoskeletal: No Tenderness to Palpation of Joints or Extremities, Muscle Wasting, - - Compartments remain soft left lower extremity Neurological: Sensory exam intact to light touch and pain Psych/Mental Status: Normal Affect, Appropriate Debridement Note Post-Debridement Measurements/Treatment WC - Nurse 2 - General Ulcer CM Notes Start: 04/19/18 16:29 Freq: Status: Active Protocol: Activity Type Activity Date Activity User E-Sign Co-Sign Detail Recorded Client Recorded Date Recorded By Document 04/19/18 17:05 [id number] 04/19/18 17:07 TM Document 04/26/18 10:27 TM [id number] 04/26/18 10:31 Document 05/03/18 11:05 [id number] 05/03/18 11:08 04/19/18 04/26/18 05/03/18 17:05 10:27 11:05 Wound Center Nurse 2 #10- LT CALF CLUSTER -Time 11:05 -Correct Patient Yes -Correct Side, Site, Position Yes -Correct Procedure Yes -Procedure Performed Yes -Type of Procedure Debridement -Clinical Debridement Subcutaneous -Post Debridement Size (cm) - Length 1.8 -Post Debridement Size (cm) - Width 0.8 -Post Debridement Size (cm) - Depth 0.1 -Total Square Cm 1.44 -Wound/Ulcer Outcome Not Healed -Ulcer Cleansing Rinsed/ Irrigated with Saline -Foul Odor after Cleansing Yes -Bioengineered Tissue Yes -Type of bioengineered Tissue EPIFIX -Expiration Date 01/08/23 -Product Lot Number [id number] -Percent Used 100 -Saline Lot Number [id number] -Bleeding Controlled with Pressure -Treatment Response Procedure Tolerated Well #9 Left Medial-Superior Calf -Time 17:05 10:28 11:06 -Correct Patient Yes Yes Yes -Correct Side, Site, Position Yes Yes Yes -Correct Procedure Yes Yes Yes -Procedure Performed Yes Yes Yes -Type of Procedure Debridement Debridement Debridement -Clinical Debridement Subcutaneous Subcutaneous Subcutaneous -Post Debridement Size (cm) - Length 0.8 0.6 0.8 -Post Debridement Size (cm) - Width 0.7 0.6 0.8 -Post Debridement Size (cm) - Depth 0.1 0.1 0.1 -Total Square Cm 0.56 0.36 0.64 -Wound/Ulcer Outcome Not Healed Not Healed Not Healed -Ulcer Cleansing Rinsed/ Rinsed/ Rinsed/ Irrigated with Irrigated with Irrigated with Saline Saline Saline -Foul Odor after Cleansing No No No -Bioengineered Tissue Yes Yes Yes -Type of bioengineered Tissue EPIFIX EPIFIX EPIFIX -Expiration Date 01/08/23 02/07/23 01/08/23 -Product Lot Number [id number] -Percent Used 50 100 100 -Saline Lot Number [id number] -Topical Lidocaine (%) 4 4 -Bleeding Controlled with Pressure Pressure Pressure -Treatment Response Procedure Procedure Procedure Tolerated Well Tolerated Well Tolerated Well #7- LT INFERIOR CALF CLUSTER -Time 17:06 10:29 11:06 -Correct Patient Yes Yes Yes -Correct Side, Site, Position Yes Yes Yes -Correct Procedure Yes Yes Yes -Procedure Performed Yes Yes Yes -Type of Procedure Debridement Debridement Debridement -Clinical Debridement Subcutaneous Subcutaneous Subcutaneous -Post Debridement Size (cm) - Length 1.0 1.3 0.9 -Post Debridement Size (cm) - Width 1.0 0.6 0.9 -Post Debridement Size (cm) - Depth 0.1 0.1 0.1 -Total Square Cm 1.00 0.78 0.81 -Wound/Ulcer Outcome Not Healed Not Healed Not Healed -Ulcer Cleansing Rinsed/ Rinsed/ Rinsed/ Irrigated with Irrigated with Irrigated with Saline Saline Saline -Foul Odor after Cleansing No No No -Bioengineered Tissue Yes Yes Yes -Type of bioengineered Tissue EPIFIX EPIFIX EPIFIX -Expiration Date 01/08/23 02/07/23 01/08/23 -Product Lot Number [id number] -Percent Used 50 100 100 -Saline Lot Number [id number] -Topical Lidocaine (%) 4 4 -Bleeding Controlled with Pressure Pressure Pressure -Treatment Response Procedure Procedure Procedure Tolerated Well Tolerated Well Tolerated Well Pain Scale: 0-10 Numeric Is Patient Pain Free? Yes Yes Yes Wound debrided: medial superior Laterality: Left Type of Debridement: Excisional debridement Anesthesia Used: 5% Lidocaine Gel Depth: in the subcutaneous layer Percentage of wound debrided: 100 Instrument Used: #15 blade Tissue Removed: fibrous, devitalized subcutaneous, biofilm, slough Severity: Fat Layer Exposed Amount of bleeding with debridement: Mild Bleeding Controlled with: Pressure Patient tolerated procedure well - Additional Wound Wound debrided: medial inferior Laterality: Left Type of Debridement: Excisional debridement Anesthesia Used: 5% Lidocaine Gel Depth: in the subcutaneous layer Percentage of wound debrided: 100 Instrument Used: #15 blade Tissue Removed: fibrous, devitalized subcutaneous, biofilm, slough Severity: Fat Layer Exposed Amount of bleeding with debridement: Mild Bleeding Controlled with: Pressure Patient tolerated procedure: Patient tolerated procedure well - Additional Wound Wound debrided: posterior new calf Laterality: Left Type of Debridement: Excisional debridement Anesthesia Used: 5% Lidocaine Gel Depth: in the subcutaneous layer Percentage of wound debrided: 100 Instrument Used: #15 blade Tissue Removed: fibrous, devitalized subcutaneous, biofilm, slough Severity: Fat Layer Exposed Amount of bleeding with debridement: Mild Bleeding Controlled with: Pressure Patient tolerated procedure: Patient tolerated procedure well Assessment/Plan Active Problems Ulcer of left lower extremity with fat layer exposed (Chronic) Venous insufficiency (Chronic) Chronic pain disorder (Chronic) Assessment: Venous ulcers of lower extremities left with fat layer exposed (2). New posterior calf left ulcer with fat layer exposed, no infection. Lymphedema. Delayed healing. Chronic pain syndrome. MRSA positive culture -previously treated medically Plan: I reviewed his wound and case today. Debridement was performed as noted in the clinical panel to the chronic wound sites as well as a new. I recommended the application of advanced wound care product, epi fix and verbal consent was obtained prior to application according to standard protocol. He tolerated this well. A wound veil of moistened woven gauze and steri strips were applied to secure this in place. I previously reviewed his pathology results which did not demonstrate a malignancy. His culture was previously positive for MRSA and he has completed a course of Bactrim; to complete the recommended treatment course. He does not have local or systemic signs of illness today. His CBC and CMP were reviewed without any gross abnormalities. His ESR was 6 and C-reactive protein was 24.9. He was advised to continue to treat his edema with tubigrips and have him continue to try and use his lymphedema pumps as much as possible. Compliance was discussed. Encourage increased protein intake for improved healing; Xavier prescription was provided at a previous visit. Updated vascular studies and labs were recommend. He had a previous venous Doppler in April 2017 follow-up on his previous deep venous thrombosis in his exam also demonstrated reflux in the left popliteal vein. This is consistent with the diagnosis of venous insufficiency. I recommend vascular reevaluation and a referral was provided. It is noted he had previous noninvasive arterial studies in September 2015 with bilateral biphasic waveforms, right PARADISE of 1.41, left PARADISE of 1.42, white toe brachial index of 1.06 and left toe brachial index of 1.05. He had a subsequent duplex arterial study with bilateral calcifications identified with no significant occlusive disease identified. To offload the posterior wounds by controlling the edema. He is able to wear the compression stockings that time. To avoid direct splints pressure to this site while sleeping. He will try to wear his stretching splint for his plantar fasciitis during the day only. He was reassured the new site is not infected. I answered all his questions. To return to clinic in 1 week or call sooner if he has any questions or concerns.
--- NOTE | 2018-05-03 11:51 | PN.PCM_ITS ---
(1) Ulcer of left lower extremity with fat layer exposed Status: Chronic Current Visit: Yes Code(s): L97.922 - Non-pressure chronic ulcer of unspecified part of left lower leg with fat layer exposed (2) Venous insufficiency Status: Chronic Current Visit: Yes Code(s): I87.2 - Venous insufficiency ( chronic) (peripheral) (3) Chronic pain disorder Status: Chronic Current Visit: Yes Code(s): G89.4 - Chronic pain syndrome Type of Wound Date of Service: 05/03/18 Chief Complaint: Nonhealing venous ulcer of left lower extremity History of Wound: Mauricio is here today for follow up of nonhealing wound of his left lower extremity. He denies fever, chill, nausea, vomiting. He denies new injuries or concerns today. She also reports a new wound to the back of his leg. He is not sure if he scraped this well descending the stairs, or his stretching night splint rubs this area, or he just had increased edema that broke the skin. He denies redness or odors. Progress of Wound: Improving. New posterior left leg wound - Physical Exam Vital Signs Temp Pulse Resp BP 97.1 F L 70 16 122/86 H 05/03/18 10:33 05/03/18 10:33 05/03/18 10:33 05/03/18 10:33 General: Alert, Oriented x3, Cooperative Extremities: No cyanosis, Capillary Refill Less than 3 Seconds, No Calf Tenderness - Negative Peace and Delacruz sign bilateral, Diminished Peripheral Pulses, Edema Skin: Ulcer/ Wound - No purulence, erythema, streaking, odor, or infection. There is peripheral epithelialization noted at the 2 chronic wound sites in the wound base is granular without inflammation. There is new skin discontinuity to the posterior aspect of the leg that is superficial with subcutaneous tissue layer exposed. No infection or necrosis or deep tissue is noted. Wound Measurements and Assessment WC - Nurse 1 - General Ulcer Measurement Start: 04/19/18 16:29 Freq: Status: Active Protocol: Activity Type Activity Date Activity User E-Sign Co-Sign Detail Recorded Client Recorded Date Recorded By Document 05/03/18 10:33 [facility] [id number] 05/03/18 10:47 [facility] 05/03/18 10:33 Wound Center Nurse 1 [Ulcer Assessment] #10- LT CALF CLUSTER -Combined with other wound No -Current Size (cm) - Length 1.8 -Current Size (cm) - Width 0.7 -Current Size (cm) - Depth 0.1 -Total Square Cm 1.26 -Date of Last Picture (Recall this 05/03/18 field) -Photo Taken Yes -Epithelialization None Present -Tunneling No -Undermining/Tunneling No -Circular Undermining No -Exudate Amt Small (1-33%) -Exudate Type Serosanguineous -Wound Margin Distinct, Outline Attached -Granulation Amt Small (1-33%) -Granulation Quality Red -Slough/Fibrin Yes -Necrosis Amt Large (67-100%) -Necrotic Tissue Type Adherent Slough -Texture (Marie-wound Skin Appearance) Scarring -Moisture (Marie-wound Skin Appearance Dry/Scaly ) -Color (Marie-wound Skin Appearance) Hemosiderin Staining -Temperature (Marie-wound Skin No Abnormality Appearance) (Pt Warm) -Tenderness on Palpation (Marie-wound No Skin Appearance) -Ulcer Cleansing Rinsed/ Irrigated with Saline -Foul Odor after Cleansing No -Anesthetic Used 4% Lidocaine Solution #9 Left Medial-Superior Calf -Combined with other wound No -Current Size (cm) - Length 0.8 -Current Size (cm) - Width 0.7 -Current Size (cm) - Depth 0.1 -Total Square Cm 0.56 -Photo Taken No -Epithelialization Small 1-33% -Tunneling No -Undermining/Tunneling No -Circular Undermining No -Exudate Amt Small (1-33%) -Exudate Type Serosanguineous -Wound Margin Distinct, Outline Attached -Granulation Amt None Present (0 %) -Slough/Fibrin Yes -Necrosis Amt Large (67-100%) -Necrotic Tissue Type Adherent Slough -Structure Exposed N/A -Texture (Marie-wound Skin Appearance) Scarring -Moisture (Marie-wound Skin Appearance Dry/Scaly ) -Color (Marie-wound Skin Appearance) Hemosiderin Staining -Temperature (Marie-wound Skin No Abnormality Appearance) (Pt Warm) -Tenderness on Palpation (Marie-wound No Skin Appearance) -Ulcer Cleansing Rinsed/ Irrigated with Saline -Foul Odor after Cleansing No -Anesthetic Used 4% Lidocaine Solution #7- LT INFERIOR CALF CLUSTER -Combined with other wound No -Current Size (cm) - Length 0.8 -Current Size (cm) - Width 0.9 -Current Size (cm) - Depth 0.2 -Total Square Cm 0.72 -Photo Taken No -Epithelialization None Present -Tunneling No -Undermining/Tunneling No -Circular Undermining No -Exudate Amt Small (1-33%) -Exudate Type Serosanguineous -Wound Margin Distinct, Outline Attached -Granulation Amt Small (1-33%) -Granulation Quality Red -Slough/Fibrin Yes -Necrosis Amt Large (67-100%) -Necrotic Tissue Type Adherent Slough -Structure Exposed N/A -Texture (Marie-wound Skin Appearance) Scarring -Moisture (Marie-wound Skin Appearance Dry/Scaly ) -Color (Marie-wound Skin Appearance) Hemosiderin Staining -Temperature (Marie-wound Skin No Abnormality Appearance) (Pt Warm) -Tenderness on Palpation (Marie-wound No Skin Appearance) -Ulcer Cleansing Rinsed/ Irrigated with Saline -Foul Odor after Cleansing No -Anesthetic Used 4% Lidocaine Solution [Edema Assessment] -Lower Limb Edema Present Yes -Left Calf (cm) 43.1 -Left Ankle (cm) 29.6 WC - Nurse 2 - General Ulcer CM Notes Start: 04/19/18 16:29 Freq: Status: Active Protocol: Activity Type Activity Date Activity User E-Sign Co-Sign Detail Recorded Client Recorded Date Recorded By Document 05/03/18 11:05 KARTHIK [id number] 05/03/18 11:08 KARTHIK 05/03/18 11:05 Wound Center Nurse 2 [Procedure/Treatment] #10- LT CALF CLUSTER -Time 11:05 -Correct Patient Yes -Correct Side, Site, Position Yes -Correct Procedure Yes -Procedure Performed Yes -Type of Procedure Debridement -Clinical Debridement Subcutaneous -Post Debridement Size (cm) - Length 1.8 -Post Debridement Size (cm) - Width 0.8 -Post Debridement Size (cm) - Depth 0.1 -Total Square Cm 1.44 -Wound/Ulcer Outcome Not Healed -Ulcer Cleansing Rinsed/ Irrigated with Saline -Foul Odor after Cleansing Yes -Bioengineered Tissue Yes -Type of bioengineered Tissue EPIFIX -Expiration Date 01/08/23 -Product Lot Number [id number] -Percent Used 100 -Saline Lot Number [id number] -Bleeding Controlled with Pressure -Treatment Response Procedure Tolerated Well #9 Left Medial-Superior Calf -Time 11:06 -Correct Patient Yes -Correct Side, Site, Position Yes -Correct Procedure Yes -Procedure Performed Yes -Type of Procedure Debridement -Clinical Debridement Subcutaneous -Post Debridement Size (cm) - Length 0.8 -Post Debridement Size (cm) - Width 0.8 -Post Debridement Size (cm) - Depth 0.1 -Total Square Cm 0.64 -Wound/Ulcer Outcome Not Healed -Ulcer Cleansing Rinsed/ Irrigated with Saline -Foul Odor after Cleansing No -Bioengineered Tissue Yes -Type of bioengineered Tissue EPIFIX -Expiration Date 01/08/23 -Product Lot Number [id number] -Percent Used 100 -Saline Lot Number [id number] -Bleeding Controlled with Pressure -Treatment Response Procedure Tolerated Well #7- LT INFERIOR CALF CLUSTER -Time 11:06 -Correct Patient Yes -Correct Side, Site, Position Yes -Correct Procedure Yes -Procedure Performed Yes -Type of Procedure Debridement -Clinical Debridement Subcutaneous -Post Debridement Size (cm) - Length 0.9 -Post Debridement Size (cm) - Width 0.9 -Post Debridement Size (cm) - Depth 0.1 -Total Square Cm 0.81 -Wound/Ulcer Outcome Not Healed -Ulcer Cleansing Rinsed/ Irrigated with Saline -Foul Odor after Cleansing No -Bioengineered Tissue Yes -Type of bioengineered Tissue EPIFIX -Expiration Date 01/08/23 -Product Lot Number [id number] -Percent Used 100 -Saline Lot Number [id number] -Bleeding Controlled with Pressure -Treatment Response Procedure Tolerated Well [See Physician Procedure note for Specifics] Pain Scale: 0-10 Numeric [Pain] -Is Patient Pain Free? Yes Musculoskeletal: No Tenderness to Palpation of Joints or Extremities, Muscle Wasting, - - Compartments remain soft left lower extremity Neurological: Sensory exam intact to light touch and pain Psych/Mental Status: Normal Affect, Appropriate Debridement Note Post-Debridement Measurements/Treatment WC - Nurse 2 - General Ulcer CM Notes Start: 04/19/18 16:29 Freq: Status: Active Protocol: Activity Type Activity Date Activity User E-Sign Co-Sign Detail Recorded Client Recorded Date Recorded By Document 04/19/18 17:05 [id number] 04/19/18 17:07 TM Document 04/26/18 10:27 TM [id number] 04/26/18 10:31 Document 05/03/18 11:05 [id number] 05/03/18 11:08 04/19/18 04/26/18 05/03/18 17:05 10:27 11:05 Wound Center Nurse 2 #10- LT CALF CLUSTER -Time 11:05 -Correct Patient Yes -Correct Side, Site, Position Yes -Correct Procedure Yes -Procedure Performed Yes -Type of Procedure Debridement -Clinical Debridement Subcutaneous -Post Debridement Size (cm) - Length 1.8 -Post Debridement Size (cm) - Width 0.8 -Post Debridement Size (cm) - Depth 0.1 -Total Square Cm 1.44 -Wound/Ulcer Outcome Not Healed -Ulcer Cleansing Rinsed/ Irrigated with Saline -Foul Odor after Cleansing Yes -Bioengineered Tissue Yes -Type of bioengineered Tissue EPIFIX -Expiration Date 01/08/23 -Product Lot Number [id number] -Percent Used 100 -Saline Lot Number [id number] -Bleeding Controlled with Pressure -Treatment Response Procedure Tolerated Well #9 Left Medial-Superior Calf -Time 17:05 10:28 11:06 -Correct Patient Yes Yes Yes -Correct Side, Site, Position Yes Yes Yes -Correct Procedure Yes Yes Yes -Procedure Performed Yes Yes Yes -Type of Procedure Debridement Debridement Debridement -Clinical Debridement Subcutaneous Subcutaneous Subcutaneous -Post Debridement Size (cm) - Length 0.8 0.6 0.8 -Post Debridement Size (cm) - Width 0.7 0.6 0.8 -Post Debridement Size (cm) - Depth 0.1 0.1 0.1 -Total Square Cm 0.56 0.36 0.64 -Wound/Ulcer Outcome Not Healed Not Healed Not Healed -Ulcer Cleansing Rinsed/ Rinsed/ Rinsed/ Irrigated with Irrigated with Irrigated with Saline Saline Saline -Foul Odor after Cleansing No No No -Bioengineered Tissue Yes Yes Yes -Type of bioengineered Tissue EPIFIX EPIFIX EPIFIX -Expiration Date 01/08/23 02/07/23 01/08/23 -Product Lot Number [id number] -Percent Used 50 100 100 -Saline Lot Number [id number] -Topical Lidocaine (%) 4 4 -Bleeding Controlled with Pressure Pressure Pressure -Treatment Response Procedure Procedure Procedure Tolerated Well Tolerated Well Tolerated Well #7- LT INFERIOR CALF CLUSTER -Time 17:06 10:29 11:06 -Correct Patient Yes Yes Yes -Correct Side, Site, Position Yes Yes Yes -Correct Procedure Yes Yes Yes -Procedure Performed Yes Yes Yes -Type of Procedure Debridement Debridement Debridement -Clinical Debridement Subcutaneous Subcutaneous Subcutaneous -Post Debridement Size (cm) - Length 1.0 1.3 0.9 -Post Debridement Size (cm) - Width 1.0 0.6 0.9 -Post Debridement Size (cm) - Depth 0.1 0.1 0.1 -Total Square Cm 1.00 0.78 0.81 -Wound/Ulcer Outcome Not Healed Not Healed Not Healed -Ulcer Cleansing Rinsed/ Rinsed/ Rinsed/ Irrigated with Irrigated with Irrigated with Saline Saline Saline -Foul Odor after Cleansing No No No -Bioengineered Tissue Yes Yes Yes -Type of bioengineered Tissue EPIFIX EPIFIX EPIFIX -Expiration Date 01/08/23 02/07/23 01/08/23 -Product Lot Number [id number] -Percent Used 50 100 100 -Saline Lot Number [id number] -Topical Lidocaine (%) 4 4 -Bleeding Controlled with Pressure Pressure Pressure -Treatment Response Procedure Procedure Procedure Tolerated Well Tolerated Well Tolerated Well Pain Scale: 0-10 Numeric Is Patient Pain Free? Yes Yes Yes Wound debrided: medial superior Laterality: Left Type of Debridement: Excisional debridement Anesthesia Used: 5% Lidocaine Gel Depth: in the subcutaneous layer Percentage of wound debrided: 100 Instrument Used: #15 blade Tissue Removed: fibrous, devitalized subcutaneous, biofilm, slough Severity: Fat Layer Exposed Amount of bleeding with debridement: Mild Bleeding Controlled with: Pressure Patient tolerated procedure well - Additional Wound Wound debrided: medial inferior Laterality: Left Type of Debridement: Excisional debridement Anesthesia Used: 5% Lidocaine Gel Depth: in the subcutaneous layer Percentage of wound debrided: 100 Instrument Used: #15 blade Tissue Removed: fibrous, devitalized subcutaneous, biofilm, slough Severity: Fat Layer Exposed Amount of bleeding with debridement: Mild Bleeding Controlled with: Pressure Patient tolerated procedure: Patient tolerated procedure well - Additional Wound Wound debrided: posterior new calf Laterality: Left Type of Debridement: Excisional debridement Anesthesia Used: 5% Lidocaine Gel Depth: in the subcutaneous layer Percentage of wound debrided: 100 Instrument Used: #15 blade Tissue Removed: fibrous, devitalized subcutaneous, biofilm, slough Severity: Fat Layer Exposed Amount of bleeding with debridement: Mild Bleeding Controlled with: Pressure Patient tolerated procedure: Patient tolerated procedure well Assessment/Plan Active Problems Ulcer of left lower extremity with fat layer exposed (Chronic) Venous insufficiency (Chronic) Chronic pain disorder (Chronic) Assessment: Venous ulcers of lower extremities left with fat layer exposed (2). New posterior calf left ulcer with fat layer exposed, no infection. Lymphedema. Delayed healing. Chronic pain syndrome. MRSA positive culture - previously treated medically Plan: I reviewed his wound and case today. Debridement was performed as noted in the clinical panel to the chronic wound sites as well as a new. I recommended the application of advanced wound care product, epi fix and verbal consent was obtained prior to application according to standard protocol. He tolerated this well. A wound veil of moistened woven gauze and steri strips were applied to secure this in place. I previously reviewed his pathology results which did not demonstrate a malignancy. His culture was previously positive for MRSA and he has completed a course of Bactrim; to complete the recommended treatment course. He does not have local or systemic signs of illness today. His CBC and CMP were reviewed without any gross abnormalities. His ESR was 6 and C-reactive protein was 24.9. He was advised to continue to treat his edema with tubigrips and have him continue to try and use his lymphedema pumps as much as possible. Compliance was discussed. Encourage increased protein intake for improved healing; Xavier prescription was provided at a previous visit. Updated vascular studies and labs were recommend. He had a previous venous Doppler in April 2017 follow-up on his previous deep venous thrombosis in his exam also demonstrated reflux in the left popliteal vein. This is consistent with the diagnosis of venous insufficiency. I recommend vascular reevaluation and a referral was provided. It is noted he had previous noninvasive arterial studies in September 2015 with bilateral biphasic waveforms , right PARADISE of 1.41, left PARADISE of 1.42, white toe brachial index of 1.06 and left toe brachial index of 1.05. He had a subsequent duplex arterial study with bilateral calcifications identified with no significant occlusive disease identified. To offload the posterior wounds by controlling the edema. He is able to wear the compression stockings that time. To avoid direct splints pressure to this site while sleeping. He will try to wear his stretching splint for his plantar fasciitis during the day only. He was reassured the new site is not infected. I answered all his questions. To return to clinic in 1 week or call sooner if he has any questions or concerns.
== END 2018-05-09 23:59 ==
LOC: WC 09:30
PROVIDERS: Family Provider Family Medicine; PCP Family Medicine; Visit Provider Podiatrist
DX: L97.222 Non-pressure chronic ulcer of left calf with fat layer exposed (principal); I87.2 Venous insufficiency (chronic) (peripheral); G89.4 Chronic pain syndrome; Z86.14 Personal history of Methicillin resistant Staphylococcus aureus infection
CPT/HCPCS: 15271; Q4131

== ENCOUNTER 2018-06-07 09:30 | Outpatient (RCR) | payer OTHER, SELFPAY ==
[2018-05-10 00:36] VITALS: BP 122/86; PULSE 70; RESP 16; TEMP 36.2; BMI 43.5
[2018-05-10 09:35] VITALS: BP 152/88; PULSE 84; RESP 18; TEMP 35.9; BMI 43.5
--- NOTE | 2018-05-10 11:19 | PCM.WC.PN ---
(1) Ulcer of left lower extremity with fat layer exposed Status: Chronic Current Visit: Yes Code(s): L97.922 - Non-pressure chronic ulcer of unspecified part of left lower leg with fat layer exposed (2) Chronic pain disorder Status: Chronic Current Visit: Yes Code(s): G89.4 - Chronic pain syndrome (3) Lymphedema Status: Chronic Current Visit: Yes Code(s): I89.0 - Lymphedema, not elsewhere classified Type of Wound Date of Service: 05/10/18 Chief Complaint: Nonhealing venous ulcer of left lower extremity History of Wound: Mauricio is here today for follow up of nonhealing wound of his left lower extremity. He denies fever, chill, nausea, vomiting. He denies new injuries or concerns today. He denies redness or odors. Progress of Wound: Improving. Healed posterior left leg wound - Physical Exam Vital Signs Temp Pulse Resp BP 96.7 F L 84 18 152/88 H 05/10/18 09:35 05/10/18 09:35 05/10/18 09:35 05/10/18 09:35 General: Alert, Oriented x3, Cooperative Extremities: No cyanosis, Capillary Refill Less than 3 Seconds, No Calf Tenderness - Negative Peace and Delacruz sign bilateral, Diminished Peripheral Pulses, Edema - Lateral lower extremities with hyperpigmentation left Skin: Ulcer/ Wound - No purulence, no erythema, streaking, odor, no infection. There is full epithelialization noted to the posterior newer leg wound as well as the superiormost chronic leg wound on the left lower extremity. The distalmost chronic leg wound on the left lower extremity has peripheral epithelialization., - - The periwound skin is atrophic and hairless left Wound Measurements and Assessment WC - Nurse 1 - General Ulcer Measurement Start: 05/10/18 09:35 Freq: Status: Active Protocol: Activity Type Activity Date Activity User E-Sign Co-Sign Detail Recorded Client Recorded Date Recorded By Document 05/10/18 09:35 RB [id number] 05/10/18 09:51 RB 05/10/18 09:35 Wound Center Nurse 1 [Ulcer Assessment] #10- LT CALF CLUSTER -Combined with other wound No -Current Size (cm) - Length 2 -Current Size (cm) - Width 1 -Current Size (cm) - Depth 0.1 -Total Square Cm 2 -Photo Taken No -Tunneling No -Undermining/Tunneling No -Circular Undermining No -Classification - Thickness Full Thickness without Exposed Support Structure -Exudate Amt None Present (0 %) -Wound Margin Distinct, Outline Attached -Granulation Amt Small (1-33%) -Granulation Quality [place] -Slough/Fibrin Yes -Necrosis Amt Large (67-100%) -Necrotic Tissue Type Adherent Slough -Structure Exposed N/A -Texture (Marie-wound Skin Appearance) Assessed -Moisture (Marie-wound Skin Appearance Dry/Scaly ) -Color (Marie-wound Skin Appearance) Assessed -Temperature (Marie-wound Skin No Abnormality Appearance) (Pt Warm) -Tenderness on Palpation (Marie-wound No Skin Appearance) -Ulcer Cleansing Rinsed/ Irrigated with Saline -Foul Odor after Cleansing No -Anesthetic Used 5% Lidocaine Gel #9 Left Medial-Superior Calf -Combined with other wound No -Current Size (cm) - Length 0.4 -Current Size (cm) - Width 0.6 -Current Size (cm) - Depth 0.1 -Total Square Cm 0.24 -Photo Taken No -Tunneling No -Undermining/Tunneling No -Circular Undermining No -Classification - Thickness Full Thickness without Exposed Support Structure -Exudate Amt None Present (0 %) -Wound Margin Distinct, Outline Attached -Granulation Amt Small (1-33%) -Granulation Quality [place] -Necrosis Amt Large (67-100%) -Necrotic Tissue Type Adherent Slough -Structure Exposed N/A -Texture (Marie-wound Skin Appearance) Assessed -Moisture (Marie-wound Skin Appearance Assessed ) Dry/Scaly -Color (Marie-wound Skin Appearance) Assessed -Temperature (Marie-wound Skin No Abnormality Appearance) (Pt Warm) -Tenderness on Palpation (Marie-wound No Skin Appearance) -Ulcer Cleansing Rinsed/ Irrigated with Saline -Foul Odor after Cleansing No -Anesthetic Used 5% Lidocaine Gel #7- LT INFERIOR CALF CLUSTER -Combined with other wound No -Current Size (cm) - Length 1 -Current Size (cm) - Width 0.9 -Current Size (cm) - Depth 0.1 -Total Square Cm 0.9 -Photo Taken No -Epithelialization Small 1-33% -Tunneling No -Undermining/Tunneling No -Circular Undermining No -Classification - Thickness Full Thickness without Exposed Support Structure -Exudate Amt None Present (0 %) -Wound Margin Distinct, Outline Attached -Granulation Amt Small (1-33%) -Granulation Quality [place] -Slough/Fibrin Yes -Necrosis Amt Large (67-100%) -Necrotic Tissue Type Adherent Slough -Structure Exposed N/A -Texture (Marie-wound Skin Appearance) Assessed -Moisture (Marie-wound Skin Appearance Dry/Scaly ) -Color (Marie-wound Skin Appearance) Assessed -Temperature (Marie-wound Skin No Abnormality Appearance) (Pt Warm) -Tenderness on Palpation (Marie-wound No Skin Appearance) -Ulcer Cleansing Rinsed/ Irrigated with Saline -Foul Odor after Cleansing No -Anesthetic Used 5% Lidocaine Gel [Edema Assessment] -Lower Limb Edema Present Yes -Point of measurement (cm from the 42.5 medial instep) -Point of Measurement (cm from the 29 medial instep) WC - Nurse 2 - General Ulcer CM Notes Start: 05/10/18 09:35 Freq: Status: Active Protocol: Activity Type Activity Date Activity User E-Sign Co-Sign Detail Recorded Client Recorded Date Recorded By Document 05/10/18 09:58 KARTHIK [id number] 05/10/18 10:04 KARTHIK 05/10/18 09:58 Wound Center Nurse 2 [Procedure/Treatment] #10- LT CALF CLUSTER -Correct Patient No -Correct Side, Site, Position No -Correct Procedure No -Procedure Performed No -Post Debridement Size (cm) - Length 0 -Post Debridement Size (cm) - Width 0 -Post Debridement Size (cm) - Depth 0 -Total Square Cm 0 -Wound/Ulcer Outcome Healed- Epithelialized #9 Left Medial-Superior Calf -Correct Patient No -Correct Side, Site, Position No -Correct Procedure No -Procedure Performed No -Post Debridement Size (cm) - Length 0 -Post Debridement Size (cm) - Width 0 -Post Debridement Size (cm) - Depth 0 -Total Square Cm 0 -Wound/Ulcer Outcome Healed- Epithelialized #7- LT INFERIOR CALF CLUSTER -Time 09:58 -Correct Patient Yes -Correct Side, Site, Position Yes -Correct Procedure Yes -Procedure Performed Yes -Type of Procedure Debridement -Clinical Debridement Subcutaneous -Post Debridement Size (cm) - Length 0.6 -Post Debridement Size (cm) - Width 0.7 -Post Debridement Size (cm) - Depth 0.1 -Total Square Cm 0.42 -Wound/Ulcer Outcome Not Healed -Ulcer Cleansing Rinsed/ Irrigated with Saline -Foul Odor after Cleansing No -Bioengineered Tissue Yes -Type of bioengineered Tissue EPIFIX -Expiration Date 02/07/23 -Product Lot Number [id number] -Percent Used 100 -Saline Lot Number [id number] -Bleeding Controlled with Pressure -Treatment Response Procedure Tolerated Well [See Physician Procedure note for Specifics] Pain Scale: 0-10 Numeric [Pain] -Is Patient Pain Free? Yes Musculoskeletal: No Tenderness to Palpation of Joints or Extremities, Muscle Wasting, Tenderness - Pain with manipulation. Compartments remain soft left lower extremity Neurological: Sensory exam intact to light touch and pain Psych/Mental Status: Normal Affect, Appropriate Debridement Note Post-Debridement Measurements/Treatment WC - Nurse 2 - General Ulcer CM Notes Start: 05/10/18 09:35 Freq: Status: Active Protocol: Activity Type Activity Date Activity User E-Sign Co-Sign Detail Recorded Client Recorded Date Recorded By Document 05/10/18 09:58 KARTHIK [id number] 05/10/18 10:04 KARTHIK 05/10/18 09:58 Wound Center Nurse 2 #10- LT CALF CLUSTER -Correct Patient No -Correct Side, Site, Position No -Correct Procedure No -Procedure Performed No -Post Debridement Size (cm) - Length 0 -Post Debridement Size (cm) - Width 0 -Post Debridement Size (cm) - Depth 0 -Total Square Cm 0 -Wound/Ulcer Outcome Healed- Epithelialized #9 Left Medial-Superior Calf -Correct Patient No -Correct Side, Site, Position No -Correct Procedure No -Procedure Performed No -Post Debridement Size (cm) - Length 0 -Post Debridement Size (cm) - Width 0 -Post Debridement Size (cm) - Depth 0 -Total Square Cm 0 -Wound/Ulcer Outcome Healed- Epithelialized #7- LT INFERIOR CALF CLUSTER -Time 09:58 -Correct Patient Yes -Correct Side, Site, Position Yes -Correct Procedure Yes -Procedure Performed Yes -Type of Procedure Debridement -Clinical Debridement Subcutaneous -Post Debridement Size (cm) - Length 0.6 -Post Debridement Size (cm) - Width 0.7 -Post Debridement Size (cm) - Depth 0.1 -Total Square Cm 0.42 -Wound/Ulcer Outcome Not Healed -Ulcer Cleansing Rinsed/ Irrigated with Saline -Foul Odor after Cleansing No -Bioengineered Tissue Yes -Type of bioengineered Tissue EPIFIX -Expiration Date 02/07/23 -Product Lot Number [id number] -Percent Used 100 -Saline Lot Number [id number] -Bleeding Controlled with Pressure -Treatment Response Procedure Tolerated Well Pain Scale: 0-10 Numeric Is Patient Pain Free? Yes Wound debrided: leg (previous inferior wound) Laterality: Left Type of Debridement: Excisional debridement Anesthesia Used: 4% Lidocaine Solution Depth: in the subcutaneous layer Percentage of wound debrided: 100 Instrument Used: #15 blade Tissue Removed: Fibrous, devitalized subcutaneous, biofilm, slough Severity: Fat Layer Exposed Amount of bleeding with debridement: Mild Bleeding Controlled with: Pressure Patient tolerated procedure well Assessment/Plan Active Problems Ulcer of left lower extremity with fat layer exposed (Chronic) Chronic pain disorder (Chronic) Lymphedema (Chronic) Assessment: Venous ulcers of lower extremities left with fat layer exposed (superior healed and inferior decreased in size). Healed posterior calf left ulcer with fat layer exposed, no infection. Lymphedema. Delayed healing. Chronic pain syndrome. MRSA positive culture -previously treated medically Plan: I reviewed his wound and case today. Debridement was performed as noted in the clinical panel to the chronic wound sites as well as a new. I recommended the application of advanced wound care product, epi fix and verbal consent was obtained prior to application according to standard protocol. He tolerated this well. A wound veil and steri strips were applied to secure this in place. I previously reviewed his pathology results which did not demonstrate a malignancy. His culture was previously positive for MRSA and he has completed a course of Bactrim; to complete the recommended treatment course. He does not have local or systemic signs of illness today. His CBC and CMP were reviewed without any gross abnormalities. His ESR was 6 and C-reactive protein was 24.9. He was advised to continue to treat his edema with tubigrips and have him continue to try and use his lymphedema pumps as much as possible. Compliance was discussed. Encourage increased protein intake for improved healing; Xavier prescription was provided at a previous visit. Updated vascular studies and labs were recommend. He had a previous venous Doppler in April 2017 follow-up on his previous deep venous thrombosis in his exam also demonstrated reflux in the left popliteal vein. This is consistent with the diagnosis of venous insufficiency. I recommend vascular reevaluation and a referral was provided. It is noted he had previous noninvasive arterial studies in September 2015 with bilateral biphasic waveforms, right PARADISE of 1.41, left PARADISE of 1.42, white toe brachial index of 1.06 and left toe brachial index of 1.05. He had a subsequent duplex arterial study with bilateral calcifications identified with no significant occlusive disease identified. To offload the posterior wounds by controlling the edema. He is able to wear the compression stockings that time. To avoid direct splints pressure to this site while sleeping. He will try to wear his stretching splint for his plantar fasciitis during the day only. He was reassured the new site is not infected. I answered all his questions. To return to clinic in 1 week or call sooner if he has any questions or concerns.
[2018-05-17 09:42] VITALS: BP 128/80; PULSE 63; RESP 18; TEMP 36.3; BMI 43.5
--- NOTE | 2018-05-17 09:52 | WC ---
veil left in place to LLE due to adhered will let Dr Ross remove
--- NOTE | 2018-05-17 16:12 | PCM.WC.PN ---
(1) Ulcer of left lower extremity with fat layer exposed Status: Chronic Code(s): L97.922 - Non-pressure chronic ulcer of unspecified part of left lower leg with fat layer exposed (2) Chronic pain disorder Status: Chronic Code(s): G89.4 - Chronic pain syndrome (3) Lymphedema Status: Chronic Code(s): I89.0 - Lymphedema, not elsewhere classified Type of Wound Date of Service: 05/20/18 Chief Complaint: Nonhealing venous ulcer of left lower extremity History of Wound: Mauricio is here today for follow up of nonhealing wound of his left lower extremity. He denies fever, chill, nausea, vomiting. He denies new injuries or concerns today. He denies redness or odors. Progress of Wound: Improving - Physical Exam Vital Signs Temp Pulse Resp BP 97.3 F L 63 18 128/80 H 05/17/18 09:42 05/17/18 09:42 05/17/18 09:42 05/17/18 09:42 General: Alert, Oriented x3, Cooperative Extremities: No cyanosis, Capillary Refill Less than 3 Seconds, No Calf Tenderness - negative joan and goddard signs bilateral, Diminished Peripheral Pulses, Edema - bilateral lower extremities Skin: Ulcer/ Wound - No purulence, no erythema, streaking, no odor, no infection bilateral lower extremities., - - Peripheral skin is atrophic with hyperpigmentation no hair left Wound Measurements and Assessment WC - Nurse 1 - General Ulcer Measurement Start: 05/10/18 09:35 Freq: Status: Active Protocol: Activity Type Activity Date Activity User E-Sign Co-Sign Detail Recorded Client Recorded Date Recorded By Document 05/17/18 09:42 RB [id number] 05/17/18 09:54 RB 05/17/18 09:42 Wound Center Nurse 1 [Ulcer Assessment] #7- LT INFERIOR CALF CLUSTER -Combined with other wound No -Photo Taken No -Tunneling No -Undermining/Tunneling No -Circular Undermining No -Classification - Thickness Full Thickness without Exposed Support Structure -Exudate Amt Small (1-33%) -Exudate Type Serosanguineous -Wound Margin Distinct, Outline Attached -Granulation Amt Large (67-100%) -Granulation Quality [place] -Slough/Fibrin Yes -Necrosis Amt Small (1-33%) -Necrotic Tissue Type Adherent Slough -Structure Exposed N/A -Texture (Marie-wound Skin Appearance) Assessed -Moisture (Marie-wound Skin Appearance Assessed ) Dry/Scaly -Color (Marie-wound Skin Appearance) Assessed -Temperature (Marie-wound Skin No Abnormality Appearance) (Pt Warm) -Tenderness on Palpation (Marie-wound No Skin Appearance) -Ulcer Cleansing Rinsed/ Irrigated with Saline -Foul Odor after Cleansing No -Anesthetic Used 4% Lidocaine Solution [Edema Assessment] -Lower Limb Edema Present Yes -Left Calf (cm) 43.5 -Left Ankle (cm) 28.2 05/17/18 09:52 Wound Center by Yasmin Euceda left in place to LLE due to adhered will let Dr Ross remove Initialized on 05/17/18 09:52 - END OF NOTE WC - Nurse 2 - General Ulcer CM Notes Start: 05/10/18 09:35 Freq: Status: Active Protocol: Activity Type Activity Date Activity User E-Sign Co-Sign Detail Recorded Client Recorded Date Recorded By Document 05/17/18 10:10 KARTHIK [id number] 05/17/18 10:11 KARTHIK 05/17/18 10:10 Wound Center Nurse 2 [Procedure/Treatment] #7- LT INFERIOR CALF CLUSTER -Time 10:10 -Correct Patient Yes -Correct Side, Site, Position Yes -Correct Procedure Yes -Procedure Performed Yes -Type of Procedure Debridement -Clinical Debridement Subcutaneous -Post Debridement Size (cm) - Length 0.4 -Post Debridement Size (cm) - Width 0.4 -Post Debridement Size (cm) - Depth 0.1 -Total Square Cm 0.16 -Wound/Ulcer Outcome Not Healed -Ulcer Cleansing Rinsed/ Irrigated with Saline -Foul Odor after Cleansing No -Bioengineered Tissue No -Bleeding Controlled with Pressure -Treatment Response Procedure Tolerated Well [See Physician Procedure note for Specifics] Pain Scale: 0-10 Numeric [Pain] -Is Patient Pain Free? Yes Musculoskeletal: No Tenderness to Palpation of Joints or Extremities, Muscle Wasting Neurological: Sensory exam intact to light touch and pain - Hypersensitivity consistent with previous evaluations Psych/Mental Status: Normal Affect, Appropriate Debridement Note Post-Debridement Measurements/Treatment WC - Nurse 2 - General Ulcer CM Notes Start: 05/10/18 09:35 Freq: Status: Active Protocol: Activity Type Activity Date Activity User E-Sign Co-Sign Detail Recorded Client Recorded Date Recorded By Document 05/10/18 09:58 [id number] 05/10/18 10:04 Document 05/17/18 10:10 KARTHIK [id number] 05/17/18 10:11 05/10/18 05/17/18 09:58 10:10 Wound Center Nurse 2 #10- LT CALF CLUSTER -Correct Patient No -Correct Side, Site, Position No -Correct Procedure No -Procedure Performed No -Post Debridement Size (cm) - Length 0 -Post Debridement Size (cm) - Width 0 -Post Debridement Size (cm) - Depth 0 -Total Square Cm 0 -Wound/Ulcer Outcome Healed- Epithelialized #9 Left Medial-Superior Calf -Correct Patient No -Correct Side, Site, Position No -Correct Procedure No -Procedure Performed No -Post Debridement Size (cm) - Length 0 -Post Debridement Size (cm) - Width 0 -Post Debridement Size (cm) - Depth 0 -Total Square Cm 0 -Wound/Ulcer Outcome Healed- Epithelialized #7- LT INFERIOR CALF CLUSTER -Time 09:58 10:10 -Correct Patient Yes Yes -Correct Side, Site, Position Yes Yes -Correct Procedure Yes Yes -Procedure Performed Yes Yes -Type of Procedure Debridement Debridement -Clinical Debridement Subcutaneous Subcutaneous -Post Debridement Size (cm) - Length 0.6 0.4 -Post Debridement Size (cm) - Width 0.7 0.4 -Post Debridement Size (cm) - Depth 0.1 0.1 -Total Square Cm 0.42 0.16 -Wound/Ulcer Outcome Not Healed Not Healed -Ulcer Cleansing Rinsed/ Rinsed/ Irrigated with Irrigated with Saline Saline -Foul Odor after Cleansing No No -Bioengineered Tissue Yes No -Type of bioengineered Tissue EPIFIX -Expiration Date 02/07/23 -Product Lot Number [id number] -Percent Used 100 -Saline Lot Number [id number] -Bleeding Controlled with Pressure Pressure -Treatment Response Procedure Procedure Tolerated Well Tolerated Well Pain Scale: 0-10 Numeric Is Patient Pain Free? Yes Yes Wound debrided: leg Laterality: Left Type of Debridement: Excisional debridement Anesthesia Used: 4% Lidocaine Solution Depth: in the subcutaneous layer Percentage of wound debrided: 100 Instrument Used: #15 blade Tissue Removed: fibrous, devitalized subcutaneous, biofilm, slough Severity: Fat Layer Exposed Amount of bleeding with debridement: Mild Bleeding Controlled with: Pressure Patient tolerated procedure well Assessment/Plan Assessment: Venous ulcers of lower extremities left with fat layer exposed (superior healed and inferior decreased in size). Healed posterior calf left ulcer with fat layer exposed, no infection. Lymphedema. Delayed healing. Chronic pain syndrome. MRSA positive culture -previously treated medically Plan: I reviewed his wound and case today. Debridement was performed as noted in the clinical panel to the chronic wound sites as well as a new. I recommended the application of hydrogel, to change daily. His wound site is very small and application of larger advanced wound care product is not appropriate today. He tolerated this well and understands his treatment plan. I previously reviewed his pathology results which did not demonstrate a malignancy. His culture was previously positive for MRSA and he has completed a course of Bactrim; this has been completed and he is doing well. He does not have local or systemic signs of illness today. His CBC and CMP were reviewed without any gross abnormalities. His ESR was 6 and C-reactive protein was 24.9. He was advised to continue to treat his edema with tubigrips and have him continue to try and use his lymphedema pumps as much as possible. Compliance was discussed. Encourage increased protein intake for improved healing; Xavier prescription was provided at a previous visit. Updated vascular studies and labs were recommend. He had a previous venous Doppler in April 2017 follow-up on his previous deep venous thrombosis in his exam also demonstrated reflux in the left popliteal vein. This is consistent with the diagnosis of venous insufficiency. I recommend vascular reevaluation and a referral was provided. It is noted he had previous noninvasive arterial studies in September 2015 with bilateral biphasic waveforms, right PARADISE of 1.41, left PARADISE of 1.42, white toe brachial index of 1.06 and left toe brachial index of 1.05. He had a subsequent duplex arterial study with bilateral calcifications identified with no significant occlusive disease identified. To offload the posterior wounds by controlling the edema. He is able to wear the compression stockings that time. To avoid direct splints pressure to this site while sleeping. He will try to wear his stretching splint for his plantar fasciitis during the day only. He was reassured the new site is not infected. I answered all his questions. To return to clinic in 1 week or call sooner if he has any questions or concerns.
[2018-05-24 15:02] VITALS: BP 161/96; PULSE 90; RESP 20; TEMP 36.1; BMI 43.5
--- NOTE | 2018-05-24 16:36 | PCM.WC.PN ---
(1) Ulcer of left lower extremity with fat layer exposed Status: Chronic Current Visit: Yes Code(s): L97.922 - Non-pressure chronic ulcer of unspecified part of left lower leg with fat layer exposed (2) Chronic pain disorder Status: Chronic Current Visit: Yes Code(s): G89.4 - Chronic pain syndrome (3) Lymphedema Status: Chronic Current Visit: Yes Code(s): I89.0 - Lymphedema, not elsewhere classified Type of Wound Date of Service: 05/24/18 Chief Complaint: Nonhealing venous ulcer of left lower extremity History of Wound: Mauricio is here today for follow up of nonhealing wound of his left lower extremity. He denies fever, chill, nausea, vomiting. He denies new injuries or concerns today. He denies redness or odors. He has shingles and is in severe pain. He therefore has not been able to put his compression dressings on and can barely put his shoes on due to his back pain from his shingles. Progress of Wound: Improving - Physical Exam Vital Signs Temp Pulse Resp BP 96.9 F L 90 20 H 161/96 H 05/24/18 15:02 05/24/18 15:02 05/24/18 15:02 05/24/18 15:02 General: Alert, Oriented x3, Cooperative Extremities: No cyanosis, Capillary Refill Less than 3 Seconds, No Calf Tenderness - Negative Peace and Delacruz left, Diminished Peripheral Pulses Skin: Ulcer/ Wound - No purulence, no erythema, streaking, no odor, no infection. There is epithelialization to all but one small area measuring approximately 0.1 x 0.1 x 0.1 cm with skin discontinuity and peripheral skin peeling. His peripheral skin is atrophic and hairless Wound Measurements and Assessment WC - Nurse 1 - General Ulcer Measurement Start: 05/10/18 09:35 Freq: Status: Active Protocol: Activity Type Activity Date Activity User E-Sign Co-Sign Detail Recorded Client Recorded Date Recorded By Document 05/24/18 15:02 [email or web address] [id number] 05/24/18 15:08 DL 05/24/18 15:02 Wound Center Nurse 1 [Ulcer Assessment] #7- LT INFERIOR CALF CLUSTER -Current Size (cm) - Length 0.2 -Current Size (cm) - Width 0.2 -Current Size (cm) - Depth 0.1 -Total Square Cm 0.04 -Photo Taken No -Exudate Amt None Present (0 %) -Wound Margin Distinct, Outline Attached -Granulation Amt Small (1-33%) -Granulation Quality [place] -Necrosis Amt Small (1-33%) -Necrotic Tissue Type Adherent Slough -Structure Exposed N/A -Texture (Marie-wound Skin Appearance) Scarring -Moisture (Marie-wound Skin Appearance No Abnormality ) -Color (Marie-wound Skin Appearance) Hemosiderin Staining -Temperature (Marie-wound Skin No Abnormality Appearance) (Pt Warm) -Ulcer Cleansing Rinsed/ Irrigated with Saline -Foul Odor after Cleansing No -Anesthetic Used 4% Lidocaine Solution [Edema Assessment] -Right Calf (cm) 44.2 -Right Ankle (cm) 27 -Left Calf (cm) 41.5 -Left Ankle (cm) 26.5 WC - Nurse 2 - General Ulcer CM Notes Start: 05/10/18 09:35 Freq: Status: Active Protocol: Activity Type Activity Date Activity User E-Sign Co-Sign Detail Recorded Client Recorded Date Recorded By Document 05/24/18 15:24 [id number] 05/24/18 15:25 05/24/18 15:24 Wound Center Nurse 2 [Procedure/Treatment] #7- LT INFERIOR CALF CLUSTER -Time 15:25 -Correct Patient Yes -Correct Side, Site, Position Yes -Correct Procedure Yes -Procedure Performed Yes -Type of Procedure Debridement -Clinical Debridement Subcutaneous -Post Debridement Size (cm) - Length 0.3 -Post Debridement Size (cm) - Width 0.2 -Post Debridement Size (cm) - Depth 0.1 -Total Square Cm 0.06 -Wound/Ulcer Outcome Not Healed -Ulcer Cleansing Rinsed/ Irrigated with Saline -Foul Odor after Cleansing No -Bioengineered Tissue No -Bleeding Controlled with Pressure -Treatment Response Procedure Tolerated Well [See Physician Procedure note for Specifics] Pain Scale: 0-10 Numeric [Pain] -Is Patient Pain Free? Yes Musculoskeletal: No Tenderness to Palpation of Joints or Extremities, Muscle Wasting, - - Compartment left lower extremity remain soft Neurological: Sensory exam intact to light touch and pain - Hypersensitivity noted on palpation Psych/Mental Status: Normal Affect, Appropriate Debridement Note Post-Debridement Measurements/Treatment WC - Nurse 2 - General Ulcer CM Notes Start: 05/10/18 09:35 Freq: Status: Active Protocol: Activity Type Activity Date Activity User E-Sign Co-Sign Detail Recorded Client Recorded Date Recorded By Document 05/10/18 09:58 [id number] 05/10/18 10:04 Document 05/17/18 10:10 [id number] 05/17/18 10:11 Document 05/24/18 15:24 [id number] 05/24/18 15:25 05/10/18 05/17/18 05/24/18 09:58 10:10 15:24 Wound Center Nurse 2 #10- LT CALF CLUSTER -Correct Patient No -Correct Side, Site, Position No -Correct Procedure No -Procedure Performed No -Post Debridement Size (cm) - Length 0 -Post Debridement Size (cm) - Width 0 -Post Debridement Size (cm) - Depth 0 -Total Square Cm 0 -Wound/Ulcer Outcome Healed- Epithelialized #9 Left Medial-Superior Calf -Correct Patient No -Correct Side, Site, Position No -Correct Procedure No -Procedure Performed No -Post Debridement Size (cm) - Length 0 -Post Debridement Size (cm) - Width 0 -Post Debridement Size (cm) - Depth 0 -Total Square Cm 0 -Wound/Ulcer Outcome Healed- Epithelialized #7- LT INFERIOR CALF CLUSTER -Time 09:58 10:10 15:25 -Correct Patient Yes Yes Yes -Correct Side, Site, Position Yes Yes Yes -Correct Procedure Yes Yes Yes -Procedure Performed Yes Yes Yes -Type of Procedure Debridement Debridement Debridement -Clinical Debridement Subcutaneous Subcutaneous Subcutaneous -Post Debridement Size (cm) - Length 0.6 0.4 0.3 -Post Debridement Size (cm) - Width 0.7 0.4 0.2 -Post Debridement Size (cm) - Depth 0.1 0.1 0.1 -Total Square Cm 0.42 0.16 0.06 -Wound/Ulcer Outcome Not Healed Not Healed Not Healed -Ulcer Cleansing Rinsed/ Rinsed/ Rinsed/ Irrigated with Irrigated with Irrigated with Saline Saline Saline -Foul Odor after Cleansing No No No -Bioengineered Tissue Yes No No -Type of bioengineered Tissue EPIFIX -Expiration Date 02/07/23 -Product Lot Number [id number] -Percent Used 100 -Saline Lot Number [id number] -Bleeding Controlled with Pressure Pressure Pressure -Treatment Response Procedure Procedure Procedure Tolerated Well Tolerated Well Tolerated Well Pain Scale: 0-10 Numeric Is Patient Pain Free? Yes Yes Yes Wound debrided: leg Laterality: Left Type of Debridement: Excisional debridement Anesthesia Used: 4% Lidocaine Solution Depth: in the subcutaneous layer Percentage of wound debrided: 100 Instrument Used: #15 blade Tissue Removed: fibrous, devitalized subcutaneous, biofilm, slough Severity: Fat Layer Exposed Amount of bleeding with debridement: Mild Bleeding Controlled with: Pressure Patient tolerated procedure well Assessment/Plan Active Problems Ulcer of left lower extremity with fat layer exposed (Chronic) Chronic pain disorder (Chronic) Lymphedema (Chronic) Assessment: Left leg ulcer with fat layer exposed -only one site remains open at this time. Healed posterior calf left ulcer with fat layer exposed, no infection. Lymphedema. Delayed healing. Chronic pain syndrome. MRSA positive culture -previously treated medically Plan: I reviewed his wound and case today. Debridement was performed as noted in the clinical panel to the chronic wound sites as well as a new. I recommended the application of hydrogel, to change daily. His wound site is very small and application of larger advanced wound care product is not appropriate today. He tolerated this well and understands his treatment plan. I previously reviewed his pathology results which did not demonstrate a malignancy. His culture was previously positive for MRSA and he has completed a course of Bactrim; this has been completed and he is doing well. He does not have local or systemic signs of illness today. His CBC and CMP were reviewed without any gross abnormalities. His ESR was 6 and C-reactive protein was 24.9. He was advised to continue to treat his edema with tubigrips and have him continue to try and use his lymphedema pumps as much as possible. Compliance was discussed. Encourage increased protein intake for improved healing; Xavier prescription was provided at a previous visit. Updated vascular studies and labs were recommend. He had a previous venous Doppler in April 2017 follow-up on his previous deep venous thrombosis in his exam also demonstrated reflux in the left popliteal vein. This is consistent with the diagnosis of venous insufficiency. I recommend vascular reevaluation and a referral was provided. It is noted he had previous noninvasive arterial studies in September 2015 with bilateral biphasic waveforms, right PARADISE of 1.41, left PARADISE of 1.42, white toe brachial index of 1.06 and left toe brachial index of 1.05. He had a subsequent duplex arterial study with bilateral calcifications identified with no significant occlusive disease identified. To offload the posterior wounds by controlling the edema. He is able to wear the compression stockings that time. To avoid direct splints pressure to this site while sleeping. He will try to wear his stretching splint for his plantar fasciitis during the day only. He was reassured the new site is not infected. I answered all his questions. To return to clinic in 1 week or call sooner if he has any questions or concerns. To continue follow-up with his primary care physician in regards to his recent shingles development.
[2018-06-07 10:03] VITALS: BP 112/72; PULSE 65; RESP 16; TEMP 36.4; BMI 43.5
--- NOTE | 2018-06-07 12:11 | PCM.WC.PN ---
(1) Ulcer of left lower extremity with fat layer exposed Status: Chronic Current Visit: Yes Code(s): L97.922 - Non-pressure chronic ulcer of unspecified part of left lower leg with fat layer exposed (2) Chronic pain disorder Status: Chronic Current Visit: Yes Code(s): G89.4 - Chronic pain syndrome (3) Lymphedema Status: Chronic Current Visit: Yes Code(s): I89.0 - Lymphedema, not elsewhere classified Type of Wound Date of Service: 06/08/18 Chief Complaint: Nonhealing venous ulcer of left lower extremity. New left wound after he bumped it History of Wound: Mauricio is here today for follow up of nonhealing wound of his left lower extremity. She also relates he bumped his left leg while in at a medical visit and a new wound has appeared. He denies fever, chill, nausea, vomiting. He denies redness or odors. He continues to break in his custom orthotics for his heel pain and is doing well so far. Progress of Wound: Improving. New left leg wound - Physical Exam Vital Signs Temp Pulse Resp BP 97.5 F L 65 16 112/72 06/07/18 10:03 06/07/18 10:03 06/07/18 10:03 06/07/18 10:03 General: Alert, Oriented x3, Cooperative Extremities: No cyanosis, Capillary Refill Less than 3 Seconds - Bilateral, No Calf Tenderness - Negative Peace and Delacruz, Diminished Peripheral Pulses, Edema - Bilateral lower extremities, Tenderness - Tenderness wound manipulation unchanged from previous visits Skin: Ulcer/ Wound - No purulence, no erythema, skin, no odor, no infection. There is a new skin discontinuity to the left anterior medial leg with some hemorrhagic and granulation tissue exposed. The peripheral skin is hairless and atrophic with hyperpigmentation and lack of hair left Wound Measurements and Assessment WC - Nurse 1 - General Ulcer Measurement Start: 05/10/18 09:35 Freq: Status: Active Protocol: Activity Type Activity Date Activity User E-Sign Co-Sign Detail Recorded Client Recorded Date Recorded By Document 06/07/18 10:03 [facility] [id number] 06/07/18 10:14 [facility] 06/07/18 10:03 Wound Center Nurse 1 [Ulcer Assessment] #11- LT LIGHT -Combined with other wound No -Current Size (cm) - Length 0.5 -Current Size (cm) - Width 1.9 -Current Size (cm) - Depth 0.1 -Total Square Cm 0.95 -Date of Last Picture (Recall this 06/07/18 field) -Photo Taken Yes -Epithelialization None Present -Tunneling No -Undermining/Tunneling No -Circular Undermining No -Exudate Amt Small (1-33%) -Exudate Type Serosanguineous -Wound Margin Distinct, Outline Attached -Granulation Amt Large (67-100%) -Granulation Quality Red -Slough/Fibrin No -Necrosis Amt None Present (0 %) -Structure Exposed None/Limited to Skin Breakdown -Texture (Marie-wound Skin Appearance) Scarring -Moisture (Marie-wound Skin Appearance Assessed ) -Color (Marie-wound Skin Appearance) Hemosiderin Staining -Temperature (Marie-wound Skin No Abnormality Appearance) (Pt Warm) -Tenderness on Palpation (Marie-wound Yes Skin Appearance) -Ulcer Cleansing Rinsed/ Irrigated with Saline -Foul Odor after Cleansing No -Anesthetic Used 4% Lidocaine Solution 5% Lidocaine Gel #7- LT INFERIOR CALF CLUSTER -Combined with other wound No -Current Size (cm) - Length 1.1 -Current Size (cm) - Width 1 -Current Size (cm) - Depth 0.1 -Total Square Cm 1.1 -Photo Taken No -Epithelialization Small 1-33% -Tunneling No -Undermining/Tunneling No -Circular Undermining No -Exudate Amt Small (1-33%) -Exudate Type Serosanguineous -Wound Margin Distinct, Outline Attached -Granulation Amt Small (1-33%) -Granulation Quality Red -Slough/Fibrin Yes -Necrosis Amt Large (67-100%) -Necrotic Tissue Type Adherent Slough -Structure Exposed None/Limited to Skin Breakdown -Texture (Marie-wound Skin Appearance) Scarring -Moisture (Marie-wound Skin Appearance Assessed ) -Color (Marie-wound Skin Appearance) Hemosiderin Staining -Temperature (Marie-wound Skin No Abnormality Appearance) (Pt Warm) -Tenderness on Palpation (Marie-wound No Skin Appearance) -Ulcer Cleansing Rinsed/ Irrigated with Saline -Foul Odor after Cleansing No -Anesthetic Used 4% Lidocaine Solution 5% Lidocaine Gel [Edema Assessment] -Lower Limb Edema Present Yes -Left Calf (cm) 43.3 -Left Ankle (cm) 31.4 WC - Nurse 2 - General Ulcer CM Notes Start: 05/10/18 09:35 Freq: Status: Active Protocol: Activity Type Activity Date Activity User E-Sign Co-Sign Detail Recorded Client Recorded Date Recorded By Document 06/07/18 10:32 [email or web address] [id number] 06/07/18 10:34 [email or web address] 06/07/18 10:32 Wound Center Nurse 2 [Procedure/Treatment] #11- LT LIGHT -Time 10:32 -Correct Patient Yes -Correct Side, Site, Position Yes -Correct Procedure Yes -Procedure Performed Yes -Type of Procedure Debridement -Clinical Debridement Subcutaneous -Post Debridement Size (cm) - Length 0.5 -Post Debridement Size (cm) - Width 2 -Post Debridement Size (cm) - Depth 0.1 -Total Square Cm 1.0 -Wound/Ulcer Outcome Not Healed -Ulcer Cleansing Rinsed/ Irrigated with Saline -Foul Odor after Cleansing No -Bioengineered Tissue Yes -Type of bioengineered Tissue EPIFIX -Expiration Date 02/07/23 -Product Lot Number [id number] -Percent Used 100 -Saline Lot Number [id number] -Bleeding Controlled with Pressure -Treatment Response Procedure Tolerated Well #7- LT INFERIOR CALF CLUSTER -Time 10:33 -Correct Patient Yes -Correct Side, Site, Position Yes -Correct Procedure Yes -Procedure Performed Yes -Type of Procedure Debridement -Clinical Debridement Subcutaneous -Post Debridement Size (cm) - Length 1.2 -Post Debridement Size (cm) - Width 1 -Post Debridement Size (cm) - Depth 0.1 -Total Square Cm 1.2 -Wound/Ulcer Outcome Not Healed -Ulcer Cleansing Rinsed/ Irrigated with Saline -Foul Odor after Cleansing No -Bioengineered Tissue No -Type of bioengineered Tissue EPIFIX -Expiration Date 02/07/23 -Product Lot Number [id number] -Percent Used 100 -Saline Lot Number [id number] -Bleeding Controlled with Pressure -Treatment Response Procedure Tolerated Well [See Physician Procedure note for Specifics] Pain Scale: 0-10 Numeric [Pain] -Is Patient Pain Free? Yes Musculoskeletal: No Tenderness to Palpation of Joints or Extremities, Muscle Wasting Neurological: Sensory exam intact to light touch and pain - Hypersensitive Psych/Mental Status: Normal Affect, Appropriate Debridement Note Post-Debridement Measurements/Treatment WC - Nurse 2 - General Ulcer CM Notes Start: 05/10/18 09:35 Freq: Status: Active Protocol: Activity Type Activity Date Activity User E-Sign Co-Sign Detail Recorded Client Recorded Date Recorded By Document 05/10/18 09:58 [id number] 05/10/18 10:04 Document 05/17/18 10:10 [id number] 05/17/18 10:11 Document 05/24/18 15:24 [id number] 05/24/18 15:25 Document 06/07/18 10:32 [id number] 06/07/18 10:34 05/10/18 05/17/18 05/24/18 09:58 10:10 15:24 Wound Center Nurse 2 #11- LT LIGHT -Time -Correct Patient -Correct Side, Site, Position -Correct Procedure -Procedure Performed -Type of Procedure -Clinical Debridement -Post Debridement Size (cm) - Length -Post Debridement Size (cm) - Width -Post Debridement Size (cm) - Depth -Total Square Cm -Wound/Ulcer Outcome -Ulcer Cleansing -Foul Odor after Cleansing -Bioengineered Tissue -Type of bioengineered Tissue -Expiration Date -Product Lot Number -Percent Used -Saline Lot Number -Bleeding Controlled with -Treatment Response #10- LT CALF CLUSTER -Correct Patient No -Correct Side, Site, Position No -Correct Procedure No -Procedure Performed No -Post Debridement Size (cm) - Length 0 -Post Debridement Size (cm) - Width 0 -Post Debridement Size (cm) - Depth 0 -Total Square Cm 0 -Wound/Ulcer Outcome Healed- Epithelialized #9 Left Medial-Superior Calf -Correct Patient No -Correct Side, Site, Position No -Correct Procedure No -Procedure Performed No -Post Debridement Size (cm) - Length 0 -Post Debridement Size (cm) - Width 0 -Post Debridement Size (cm) - Depth 0 -Total Square Cm 0 -Wound/Ulcer Outcome Healed- Epithelialized #7- LT INFERIOR CALF CLUSTER -Time 09:58 10:10 15:25 -Correct Patient Yes Yes Yes -Correct Side, Site, Position Yes Yes Yes -Correct Procedure Yes Yes Yes -Procedure Performed Yes Yes Yes -Type of Procedure Debridement Debridement Debridement -Clinical Debridement Subcutaneous Subcutaneous Subcutaneous -Post Debridement Size (cm) - Length 0.6 0.4 0.3 -Post Debridement Size (cm) - Width 0.7 0.4 0.2 -Post Debridement Size (cm) - Depth 0.1 0.1 0.1 -Total Square Cm 0.42 0.16 0.06 -Wound/Ulcer Outcome Not Healed Not Healed Not Healed -Ulcer Cleansing Rinsed/ Rinsed/ Rinsed/ Irrigated with Irrigated with Irrigated with Saline Saline Saline -Foul Odor after Cleansing No No No -Bioengineered Tissue Yes No No -Type of bioengineered Tissue EPIFIX -Expiration Date 02/07/23 -Product Lot Number [id number] -Percent Used 100 -Saline Lot Number [id number] -Bleeding Controlled with Pressure Pressure Pressure -Treatment Response Procedure Procedure Procedure Tolerated Well Tolerated Well Tolerated Well Pain Scale: 0-10 Numeric Is Patient Pain Free? Yes Yes Yes 06/07/18 10:32 Wound Center Nurse 2 #11- LT LIGHT -Time 10:32 -Correct Patient Yes -Correct Side, Site, Position Yes -Correct Procedure Yes -Procedure Performed Yes -Type of Procedure Debridement -Clinical Debridement Subcutaneous -Post Debridement Size (cm) - Length 0.5 -Post Debridement Size (cm) - Width 2 -Post Debridement Size (cm) - Depth 0.1 -Total Square Cm 1.0 -Wound/Ulcer Outcome Not Healed -Ulcer Cleansing Rinsed/ Irrigated with Saline -Foul Odor after Cleansing No -Bioengineered Tissue Yes -Type of bioengineered Tissue EPIFIX -Expiration Date 02/07/23 -Product Lot Number [id number] -Percent Used 100 -Saline Lot Number [id number] -Bleeding Controlled with Pressure -Treatment Response Procedure Tolerated Well #10- LT CALF CLUSTER -Correct Patient -Correct Side, Site, Position -Correct Procedure -Procedure Performed -Post Debridement Size (cm) - Length -Post Debridement Size (cm) - Width -Post Debridement Size (cm) - Depth -Total Square Cm -Wound/Ulcer Outcome #9 Left Medial-Superior Calf -Correct Patient -Correct Side, Site, Position -Correct Procedure -Procedure Performed -Post Debridement Size (cm) - Length -Post Debridement Size (cm) - Width -Post Debridement Size (cm) - Depth -Total Square Cm -Wound/Ulcer Outcome #7- LT INFERIOR CALF CLUSTER -Time 10:33 -Correct Patient Yes -Correct Side, Site, Position Yes -Correct Procedure Yes -Procedure Performed Yes -Type of Procedure Debridement -Clinical Debridement Subcutaneous -Post Debridement Size (cm) - Length 1.2 -Post Debridement Size (cm) - Width 1 -Post Debridement Size (cm) - Depth 0.1 -Total Square Cm 1.2 -Wound/Ulcer Outcome Not Healed -Ulcer Cleansing Rinsed/ Irrigated with Saline -Foul Odor after Cleansing No -Bioengineered Tissue No -Type of bioengineered Tissue EPIFIX -Expiration Date 02/07/23 -Product Lot Number [id number] -Percent Used 100 -Saline Lot Number [id number] -Bleeding Controlled with Pressure -Treatment Response Procedure Tolerated Well Pain Scale: 0-10 Numeric Is Patient Pain Free? Yes Wound debrided: leg anterior lateral Laterality: Left Type of Debridement: Excisional debridement Anesthesia Used: 4% Lidocaine Solution Depth: in the subcutaneous layer Percentage of wound debrided: 100 Instrument Used: #15 blade Tissue Removed: fibrous, devitalized subcutaneous, biofilm, slough Severity: Fat Layer Exposed Amount of bleeding with debridement: Mild Bleeding Controlled with: Pressure Patient tolerated procedure well - Additional Wound Wound debrided: leg anterior medial Laterality: Left Type of Debridement: Excisional debridement Anesthesia Used: 4% Lidocaine Solution Depth: in the subcutaneous layer Percentage of wound debrided: 100 Instrument Used: #15 blade Tissue Removed: fibrous, devitalized subcutaneous, biofilm, slough Severity: Fat Layer Exposed Amount of bleeding with debridement: Mild Bleeding Controlled with: Pressure Patient tolerated procedure: Patient tolerated procedure well Assessment/Plan Active Problems Ulcer of left lower extremity with fat layer exposed (Chronic) Chronic pain disorder (Chronic) Lymphedema (Chronic) Assessment: Left leg ulcer with fat layer exposed -anterior medial and anterior lateral leg (1 of the sites is new since his last visit). Lymphedema. Delayed healing. Chronic pain syndrome. MRSA positive culture -previously treated medically Plan: I reviewed his wound and case today. Debridement was performed as noted in the clinical panel to the chronic wound sites. I recommended the application of hydrogel, to change daily. His wound site is very small and application of larger advanced wound care product is not appropriate today. He tolerated this well and understands his treatment plan. I previously reviewed his pathology results which did not demonstrate a malignancy. His culture was previously positive for MRSA and he has completed a course of Bactrim; this has been completed and he is doing well. He does not have local or systemic signs of illness today. His CBC and CMP were reviewed without any gross abnormalities. His ESR was 6 and C-reactive protein was 24.9. He was advised to continue to treat his edema with tubigrips and have him continue to try and use his lymphedema pumps as much as possible. Compliance was discussed. Encourage increased protein intake for improved healing; Xavier prescription was provided at a previous visit. Updated vascular studies and labs were recommend. He had a previous venous Doppler in April 2017 follow-up on his previous deep venous thrombosis in his exam also demonstrated reflux in the left popliteal vein. This is consistent with the diagnosis of venous insufficiency. I recommend vascular reevaluation and a referral was provided. It is noted he had previous noninvasive arterial studies in September 2015 with bilateral biphasic waveforms, right PARADISE of 1.41, left PARADISE of 1.42, white toe brachial index of 1.06 and left toe brachial index of 1.05. He had a subsequent duplex arterial study with bilateral calcifications identified with no significant occlusive disease identified. To offload the posterior wounds by controlling the edema. He is able to wear the compression stockings that time. To avoid direct splints pressure to this site while sleeping. He will try to wear his stretching splint for his plantar fasciitis during the day only. He was reassured the new site is not infected. I answered all his questions. To return to clinic in 1 week or call sooner if he has any questions or concerns. To continue follow-up with his primary care physician in regards to his recent shingles development. To continue to break custom orthotics and as tolerated.
== END 2018-06-09 23:59 ==
LOC: WC 09:30
PROVIDERS: Family Provider Family Medicine; PCP Family Medicine; Visit Provider Podiatrist
DX: L97.822 Non-pressure chronic ulcer of other part of left lower leg with fat layer exposed (principal); I89.0 Lymphedema, not elsewhere classified; R60.0 Localized edema; G89.4 Chronic pain syndrome; Z86.14 Personal history of Methicillin resistant Staphylococcus aureus infection; Z86.718 Personal history of other venous thrombosis and embolism
CPT/HCPCS: 11042; 15271; Q4131

== ENCOUNTER 2018-07-05 09:45 | Outpatient (RCR) | payer OTHER, SELFPAY ==
[2018-06-10 00:47] VITALS: BP 112/72; PULSE 65; RESP 16; TEMP 36.4; BMI 43.5
[2018-06-14 09:59] VITALS: BP 108/57; PULSE 74; RESP 16; TEMP 35.8; BMI 43.5
--- NOTE | 2018-06-14 11:08 | PCM.WC.PN ---
(1) Ulcer of left lower extremity with fat layer exposed Status: Chronic Current Visit: Yes Code(s): L97.922 - Non-pressure chronic ulcer of unspecified part of left lower leg with fat layer exposed (2) Venous insufficiency Status: Chronic Current Visit: Yes Code(s): I87.2 - Venous insufficiency (chronic) (peripheral) (3) Chronic pain disorder Status: Chronic Current Visit: Yes Code(s): G89.4 - Chronic pain syndrome (4) Lymphedema Status: Chronic Current Visit: Yes Code(s): I89.0 - Lymphedema, not elsewhere classified Type of Wound Date of Service: 06/14/18 Chief Complaint: Nonhealing venous ulcer of left lower extremity History of Wound: Mauricio is here today for follow up of nonhealing wound of his left lower extremity. He denies fever, chill, nausea, vomiting. He denies redness or odors. Progress of Wound: Improving - Physical Exam Vital Signs Temp Pulse Resp BP 96.4 F L 74 16 108/57 L 06/14/18 09:59 06/14/18 09:59 06/14/18 09:59 06/14/18 09:59 General: Alert, Oriented x3, Cooperative Extremities: No cyanosis - Moderate bilateral lower extremities, Capillary Refill Less than 3 Seconds, No Calf Tenderness - Negative Peace and Delacruz sign bilateral, Diminished Peripheral Pulses, Edema Skin: Ulcer/ Wound - No purulence, no erythema, streaking, odor, no infection. Peripheral skin is atrophic, hairless, and with hyperpigmentation Wound Measurements and Assessment WC - Nurse 1 - General Ulcer Measurement Start: 06/14/18 09:58 Freq: Status: Active Protocol: Activity Type Activity Date Activity User E-Sign Co-Sign Detail Recorded Client Recorded Date Recorded By Document 06/14/18 09:59 [facility] [id number] 06/14/18 10:10 [facility] 06/14/18 09:59 Wound Center Nurse 1 [Ulcer Assessment] #11- LT LIGHT -Combined with other wound No -Current Size (cm) - Length 0.3 -Current Size (cm) - Width 0.4 -Current Size (cm) - Depth 0.1 -Total Square Cm 0.12 -Photo Taken No -Epithelialization Medium 34-66% -Tunneling No -Undermining/Tunneling No -Circular Undermining No -Classification - Thickness Partial Thickness -Exudate Amt Medium (34-66%) -Exudate Type Serosanguineous -Wound Margin Distinct, Outline Attached -Granulation Amt Small (1-33%) -Granulation Quality Red -Slough/Fibrin Yes -Necrosis Amt Medium (34-66%) -Necrotic Tissue Type Adherent Slough -Structure Exposed None/Limited to Skin Breakdown -Texture (Marie-wound Skin Appearance) Scarring -Moisture (Marie-wound Skin Appearance Assessed ) -Color (Marie-wound Skin Appearance) Hemosiderin Staining -Temperature (Marie-wound Skin No Abnormality Appearance) (Pt Warm) -Tenderness on Palpation (Marie-wound No Skin Appearance) -Ulcer Cleansing Rinsed/ Irrigated with Saline -Foul Odor after Cleansing No -Anesthetic Used 4% Lidocaine Solution 5% Lidocaine Gel #7- LT INFERIOR CALF CLUSTER -Combined with other wound No -Current Size (cm) - Length 1.1 -Current Size (cm) - Width 0.9 -Current Size (cm) - Depth 0.1 -Total Square Cm 0.99 -Date of Last Picture (Recall this 06/14/18 field) -Photo Taken Yes -Epithelialization Small 1-33% -Tunneling No -Undermining/Tunneling No -Circular Undermining No -Exudate Amt Medium (34-66%) -Exudate Type Serosanguineous -Wound Margin Distinct, Outline Attached -Granulation Amt Large (67-100%) -Granulation Quality Red -Slough/Fibrin No -Necrosis Amt None Present (0 %) -Structure Exposed None/Limited to Skin Breakdown -Texture (Marie-wound Skin Appearance) Scarring -Moisture (Marie-wound Skin Appearance Maceration ) -Color (Marie-wound Skin Appearance) Hemosiderin Staining Palor -Temperature (Marie-wound Skin No Abnormality Appearance) (Pt Warm) -Tenderness on Palpation (Marie-wound No Skin Appearance) -Ulcer Cleansing Rinsed/ Irrigated with Saline -Foul Odor after Cleansing No -Anesthetic Used 4% Lidocaine Solution 5% Lidocaine Gel WC - Nurse 2 - General Ulcer CM Notes Start: 06/14/18 09:58 Freq: Status: Active Protocol: Activity Type Activity Date Activity User E-Sign Co-Sign Detail Recorded Client Recorded Date Recorded By Document 06/14/18 10:34 [id number] 06/14/18 10:36 TM 06/14/18 10:34 Wound Center Nurse 2 [Procedure/Treatment] #11- LT LIGHT -Time 10:34 -Correct Patient Yes -Correct Side, Site, Position Yes -Correct Procedure Yes -Procedure Performed Yes -Post Debridement Size (cm) - Length 0 -Post Debridement Size (cm) - Width 0 -Post Debridement Size (cm) - Depth 0 -Total Square Cm 0 -Wound/Ulcer Outcome Healed- Epithelialized -Ulcer Cleansing Rinsed/ Irrigated with Saline -Foul Odor after Cleansing No -Bioengineered Tissue No -Topical Lidocaine (%) 4 -Bleeding Controlled with NA -Treatment Response Procedure Tolerated Well #7- LT INFERIOR CALF CLUSTER -Time 10:35 -Correct Patient Yes -Correct Side, Site, Position Yes -Correct Procedure Yes -Procedure Performed Yes -Type of Procedure Debridement -Clinical Debridement Subcutaneous -Post Debridement Size (cm) - Length 1.2 -Post Debridement Size (cm) - Width 1.0 -Post Debridement Size (cm) - Depth 0.1 -Total Square Cm 1.20 -Wound/Ulcer Outcome Not Healed -Ulcer Cleansing Rinsed/ Irrigated with Saline -Foul Odor after Cleansing No -Bioengineered Tissue No -Topical Lidocaine (%) 4 -Bleeding Controlled with Pressure -Treatment Response Procedure Tolerated Well [See Physician Procedure note for Specifics] Pain Scale: 0-10 Numeric [Pain] -Is Patient Pain Free? Yes Musculoskeletal: No Tenderness to Palpation of Joints or Extremities, Muscle Wasting, - - Compartments of left limb remain soft. There is pain with wound manipulation unchanged from previous studies. Neurological: Sensory exam intact to light touch and pain Psych/Mental Status: Normal Affect, Appropriate Debridement Note Post-Debridement Measurements/Treatment WC - Nurse 2 - General Ulcer CM Notes Start: 06/14/18 09:58 Freq: Status: Active Protocol: Activity Type Activity Date Activity User E-Sign Co-Sign Detail Recorded Client Recorded Date Recorded By Document 06/14/18 10:34 [id number] 06/14/18 10:36 06/14/18 10:34 Wound Center Nurse 2 #11- LT LIGHT -Time 10:34 -Correct Patient Yes -Correct Side, Site, Position Yes -Correct Procedure Yes -Procedure Performed Yes -Post Debridement Size (cm) - Length 0 -Post Debridement Size (cm) - Width 0 -Post Debridement Size (cm) - Depth 0 -Total Square Cm 0 -Wound/Ulcer Outcome Healed- Epithelialized -Ulcer Cleansing Rinsed/ Irrigated with Saline -Foul Odor after Cleansing No -Bioengineered Tissue No -Topical Lidocaine (%) 4 -Bleeding Controlled with NA -Treatment Response Procedure Tolerated Well #7- LT INFERIOR CALF CLUSTER -Time 10:35 -Correct Patient Yes -Correct Side, Site, Position Yes -Correct Procedure Yes -Procedure Performed Yes -Type of Procedure Debridement -Clinical Debridement Subcutaneous -Post Debridement Size (cm) - Length 1.2 -Post Debridement Size (cm) - Width 1.0 -Post Debridement Size (cm) - Depth 0.1 -Total Square Cm 1.20 -Wound/Ulcer Outcome Not Healed -Ulcer Cleansing Rinsed/ Irrigated with Saline -Foul Odor after Cleansing No -Bioengineered Tissue No -Topical Lidocaine (%) 4 -Bleeding Controlled with Pressure -Treatment Response Procedure Tolerated Well Pain Scale: 0-10 Numeric Is Patient Pain Free? Yes Wound debrided: leg Laterality: Left Type of Debridement: Excisional debridement Anesthesia Used: 4% Lidocaine Solution Depth: in the subcutaneous layer Percentage of wound debrided: 100 Instrument Used: #15 blade Tissue Removed: fibrous, devitalized subcutaneous, biofilm, slough Severity: Fat Layer Exposed Amount of bleeding with debridement: Mild Bleeding Controlled with: Pressure Patient tolerated procedure well Assessment/Plan Active Problems Ulcer of left lower extremity with fat layer exposed (Chronic) Venous insufficiency (Chronic) Chronic pain disorder (Chronic) Lymphedema (Chronic) Assessment: Left leg ulcer with fat layer exposed -anterior medial. Lymphedema. Delayed healing. Chronic pain syndrome. MRSA positive culture -previously treated medically Plan: I reviewed his wound and case today. Debridement was performed as noted in the clinical panel to the left medial leg wound site. It is noted that the left anterior leg site has healed and has full epithelialization. I recommended the application of hydrogel, to change daily. He has completed a full course of advanced wound care product application, epi fix. He tolerated this well and understands his treatment plan. I previously reviewed his pathology results which did not demonstrate a malignancy. His culture was previously positive for MRSA and he has completed a course of Bactrim; this has been completed and he is doing well. He does not have local or systemic signs of illness today. His CBC and CMP were reviewed without any gross abnormalities. His ESR was 6 and C-reactive protein was 24.9. He was advised to continue to treat his edema with tubigrips and have him continue to try and use his lymphedema pumps as much as possible. Compliance was discussed. Encourage increased protein intake for improved healing; Xavier prescription was provided at a previous visit. Updated vascular studies and labs were recommend. He had a previous venous Doppler in April 2017 follow-up on his previous deep venous thrombosis in his exam also demonstrated reflux in the left popliteal vein. This is consistent with the diagnosis of venous insufficiency. I recommend vascular reevaluation and a referral was provided. It is noted he had previous noninvasive arterial studies in September 2015 with bilateral biphasic waveforms, right PARADISE of 1.41, left PARADISE of 1.42, white toe brachial index of 1.06 and left toe brachial index of 1.05. He had a subsequent duplex arterial study with bilateral calcifications identified with no significant occlusive disease identified. To offload the posterior wounds by controlling the edema. He is able to wear the compression stockings that time. To avoid direct splints pressure to this site while sleeping. He will try to wear his stretching splint for his plantar fasciitis during the day only. He was reassured the new site is not infected. I answered all his questions. To return to clinic in 1 week or call sooner if he has any questions or concerns. To continue follow-up with his primary care physician in regards to his recent shingles development. To continue to break custom orthotics and as tolerated.
[2018-06-21 10:06] VITALS: BP 139/91; PULSE 65; RESP 16; TEMP 36.5; BMI 43.5
--- NOTE | 2018-06-21 10:59 | PCM.WC.PN ---
(1) Ulcer of left lower extremity with fat layer exposed Status: Chronic Current Visit: Yes Code(s): L97.922 - Non-pressure chronic ulcer of unspecified part of left lower leg with fat layer exposed (2) Venous insufficiency Status: Chronic Current Visit: Yes Code(s): I87.2 - Venous insufficiency (chronic) (peripheral) (3) Chronic pain disorder Status: Chronic Current Visit: Yes Code(s): G89.4 - Chronic pain syndrome (4) Lymphedema Status: Chronic Current Visit: Yes Code(s): I89.0 - Lymphedema, not elsewhere classified Type of Wound Date of Service: 06/21/18 Chief Complaint: Nonhealing venous ulcer of left lower extremity History of Wound: Mauricio is here today for follow up of nonhealing ulcer of his left lower extremity. He denies fever, chill, nausea, vomiting. He denies redness or odors. He denies new injuries. He has been leaving it open to the air and asked if he can clean the wound with alcohol. He is not able to use Dial soap due to potential allergic reaction. Progress of Wound: Stable - Physical Exam Vital Signs Temp Pulse Resp BP 97.7 F L 65 16 139/91 H 06/21/18 10:06 06/21/18 10:06 06/21/18 10:06 06/21/18 10:06 General: Alert, Oriented x3, Cooperative Extremities: No cyanosis, Capillary Refill Less than 3 Seconds, No Calf Tenderness - Negative Peace and Delacruz left, Diminished Peripheral Pulses, Edema Skin: Ulcer/ Wound - No purulence, no erythema, streaking, no odor, no infection. There is granulation fibrous tissue noted. The wound has not decreased in size since last visit. The peripheral skin is atrophic, hairless, and with hyperpigmentation Wound Measurements and Assessment WC - Nurse 1 - General Ulcer Measurement Start: 06/14/18 09:58 Freq: Status: Active Protocol: Activity Type Activity Date Activity User E-Sign Co-Sign Detail Recorded Client Recorded Date Recorded By Document 06/21/18 10:06 [facility] [id number] 06/21/18 10:15 [facility] 06/21/18 10:06 Wound Center Nurse 1 [Ulcer Assessment] #7- LT INFERIOR CALF CLUSTER -Combined with other wound No -Current Size (cm) - Length 0.8 -Current Size (cm) - Width 1.4 -Current Size (cm) - Depth 0.1 -Total Square Cm 1.12 -Photo Taken No -Epithelialization Medium 34-66% -Tunneling No -Undermining/Tunneling No -Circular Undermining No -Exudate Amt Small (1-33%) -Exudate Type Serosanguineous -Wound Margin Distinct, Outline Attached -Granulation Amt None Present (0 %) -Slough/Fibrin Yes -Necrosis Amt Large (67-100%) -Necrotic Tissue Type Adherent Slough -Structure Exposed N/A -Texture (Marie-wound Skin Appearance) Scarring -Moisture (Marie-wound Skin Appearance Dry/Scaly ) -Color (Marie-wound Skin Appearance) Erythema Hemosiderin Staining -Temperature (Marie-wound Skin No Abnormality Appearance) (Pt Warm) -Tenderness on Palpation (Marie-wound No Skin Appearance) -Ulcer Cleansing Rinsed/ Irrigated with Saline -Foul Odor after Cleansing No -Anesthetic Used 4% Lidocaine Solution 5% Lidocaine Gel [Edema Assessment] -Lower Limb Edema Present Yes -Left Calf (cm) 43.6 -Left Ankle (cm) 29 WC - Nurse 2 - General Ulcer CM Notes Start: 06/14/18 09:58 Freq: Status: Active Protocol: Activity Type Activity Date Activity User E-Sign Co-Sign Detail Recorded Client Recorded Date Recorded By Document 06/21/18 10:52 [id number] 06/21/18 10:53 06/21/18 10:52 Wound Center Nurse 2 [Procedure/Treatment] #7- LT INFERIOR CALF CLUSTER -Time 10:52 -Correct Patient Yes -Correct Side, Site, Position Yes -Correct Procedure Yes -Procedure Performed Yes -Type of Procedure Debridement -Clinical Debridement Subcutaneous -Post Debridement Size (cm) - Length 0.9 -Post Debridement Size (cm) - Width 1.5 -Post Debridement Size (cm) - Depth 0.1 -Total Square Cm 1.35 -Wound/Ulcer Outcome Not Healed -Ulcer Cleansing Rinsed/ Irrigated with Saline -Foul Odor after Cleansing No -Bioengineered Tissue No -Topical Lidocaine (%) 5 -Bleeding Controlled with Pressure -Treatment Response Procedure Tolerated Well [See Physician Procedure note for Specifics] Pain Scale: 0-10 Numeric [Pain] -Is Patient Pain Free? Yes Musculoskeletal: No Tenderness to Palpation of Joints or Extremities, Muscle Wasting Neurological: - - Hypersensitivity to touch at the wound and periwound site consistent with previous exams his chronic pain syndrome Psych/Mental Status: Normal Affect, Appropriate Debridement Note Post-Debridement Measurements/Treatment WC - Nurse 2 - General Ulcer CM Notes Start: 06/14/18 09:58 Freq: Status: Active Protocol: Activity Type Activity Date Activity User E-Sign Co-Sign Detail Recorded Client Recorded Date Recorded By Document 06/14/18 10:34 [id number] 06/14/18 10:36 TM Document 06/21/18 10:52 [id number] 06/21/18 10:53 TM 06/14/18 06/21/18 10:34 10:52 Wound Center Nurse 2 #11- LT LIGHT -Time 10:34 -Correct Patient Yes -Correct Side, Site, Position Yes -Correct Procedure Yes -Procedure Performed Yes -Post Debridement Size (cm) - Length 0 -Post Debridement Size (cm) - Width 0 -Post Debridement Size (cm) - Depth 0 -Total Square Cm 0 -Wound/Ulcer Outcome Healed- Epithelialized -Ulcer Cleansing Rinsed/ Irrigated with Saline -Foul Odor after Cleansing No -Bioengineered Tissue No -Topical Lidocaine (%) 4 -Bleeding Controlled with NA -Treatment Response Procedure Tolerated Well #7- LT INFERIOR CALF CLUSTER -Time 10:35 10:52 -Correct Patient Yes Yes -Correct Side, Site, Position Yes Yes -Correct Procedure Yes Yes -Procedure Performed Yes Yes -Type of Procedure Debridement Debridement -Clinical Debridement Subcutaneous Subcutaneous -Post Debridement Size (cm) - Length 1.2 0.9 -Post Debridement Size (cm) - Width 1.0 1.5 -Post Debridement Size (cm) - Depth 0.1 0.1 -Total Square Cm 1.20 1.35 -Wound/Ulcer Outcome Not Healed Not Healed -Ulcer Cleansing Rinsed/ Rinsed/ Irrigated with Irrigated with Saline Saline -Foul Odor after Cleansing No No -Bioengineered Tissue No No -Topical Lidocaine (%) 4 5 -Bleeding Controlled with Pressure Pressure -Treatment Response Procedure Procedure Tolerated Well Tolerated Well Pain Scale: 0-10 Numeric Is Patient Pain Free? Yes Yes Wound debrided: leg Laterality: Left Type of Debridement: Excisional debridement Anesthesia Used: 4% Lidocaine Solution Depth: in the subcutaneous layer Percentage of wound debrided: 100 Instrument Used: #15 blade Tissue Removed: fibrous, devitalized subcutaneous, biofilm, slough Severity: Fat Layer Exposed Amount of bleeding with debridement: Mild Bleeding Controlled with: Pressure Patient tolerated procedure well Assessment/Plan Active Problems Ulcer of left lower extremity with fat layer exposed (Chronic) Venous insufficiency (Chronic) Chronic pain disorder (Chronic) Lymphedema (Chronic) Assessment: Left leg ulcer with fat layer exposed -anterior medial. Lymphedema. Delayed healing. Chronic pain syndrome. MRSA positive culture -previously treated medically Plan: I reviewed his wound and case today. Debridement was performed as noted in the clinical panel to the left medial leg wound site. It is noted that the left anterior leg site has healed and has full epithelialization. I recommended the application of hydrogel, to change daily. I recommend he gently cleanse the wound with antimicrobial [id number] soap. To avoid leaving open to the air. To avoid application of harsh cleaning agents or alcohol at home. He understands this will compromise cell viability. He has completed a full course of advanced wound care product application, epi fix. He tolerated this well and understands his treatment plan. I previously reviewed his pathology results which did not demonstrate a malignancy. His culture was previously positive for MRSA and he has completed a course of Bactrim; this has been completed and he is doing well. He does not have local or systemic signs of illness today. His CBC and CMP were reviewed without any gross abnormalities. His ESR was 6 and C-reactive protein was 24.9. He was advised to continue to treat his edema with tubigrips and have him continue to try and use his lymphedema pumps as much as possible. Compliance was discussed. Encourage increased protein intake for improved healing; Xavier prescription was provided at a previous visit. Updated vascular studies and labs were recommend. He had a previous venous Doppler in April 2017 follow-up on his previous deep venous thrombosis in his exam also demonstrated reflux in the left popliteal vein. This is consistent with the diagnosis of venous insufficiency. I recommend vascular reevaluation and a referral was provided. It is noted he had previous noninvasive arterial studies in September 2015 with bilateral biphasic waveforms, right PARADISE of 1.41, left PARADISE of 1.42, white toe brachial index of 1.06 and left toe brachial index of 1.05. He had a subsequent duplex arterial study with bilateral calcifications identified with no significant occlusive disease identified. To offload the posterior wounds by controlling the edema. He is able to wear the compression stockings that time. To return to clinic in 1 week or call sooner if he has any questions or concerns. I answered all his questions.
--- NOTE | 2018-06-21 11:03 | PN.PCM_ITS ---
(1) Ulcer of left lower extremity with fat layer exposed Status: Chronic Current Visit: Yes Code(s): L97.922 - Non-pressure chronic ulcer of unspecified part of left lower leg with fat layer exposed (2) Venous insufficiency Status: Chronic Current Visit: Yes Code(s): I87.2 - Venous insufficiency ( chronic) (peripheral) (3) Chronic pain disorder Status: Chronic Current Visit: Yes Code(s): G89.4 - Chronic pain syndrome (4) Lymphedema Status: Chronic Current Visit: Yes Code(s): I89.0 - Lymphedema, not elsewhere classified Type of Wound Date of Service: 06/21/18 Chief Complaint: Nonhealing venous ulcer of left lower extremity History of Wound: Mauricio is here today for follow up of nonhealing ulcer of his left lower extremity. He denies fever, chill, nausea, vomiting. He denies redness or odors. He denies new injuries. He has been leaving it open to the air and asked if he can clean the wound with alcohol. He is not able to use Dial soap due to potential allergic reaction. Progress of Wound: Stable - Physical Exam Vital Signs Temp Pulse Resp BP 97.7 F L 65 16 139/91 H 06/21/18 10:06 06/21/18 10:06 06/21/18 10:06 06/21/18 10:06 General: Alert, Oriented x3, Cooperative Extremities: No cyanosis, Capillary Refill Less than 3 Seconds, No Calf Tenderness - Negative Peace and Delacruz left, Diminished Peripheral Pulses, Edema Skin: Ulcer/ Wound - No purulence, no erythema, streaking, no odor, no infection. There is granulation fibrous tissue noted. The wound has not decreased in size since last visit. The peripheral skin is atrophic, hairless, and with hyperpigmentation Wound Measurements and Assessment WC - Nurse 1 - General Ulcer Measurement Start: 06/14/18 09:58 Freq: Status: Active Protocol: Activity Type Activity Date Activity User E-Sign Co-Sign Detail Recorded Client Recorded Date Recorded By Document 06/21/18 10:06 [facility] [id number] 06/21/18 10:15 [facility] 06/21/18 10:06 Wound Center Nurse 1 [Ulcer Assessment] #7- LT INFERIOR CALF CLUSTER -Combined with other wound No -Current Size (cm) - Length 0.8 -Current Size (cm) - Width 1.4 -Current Size (cm) - Depth 0.1 -Total Square Cm 1.12 -Photo Taken No -Epithelialization Medium 34-66% -Tunneling No -Undermining/Tunneling No -Circular Undermining No -Exudate Amt Small (1-33%) -Exudate Type Serosanguineous -Wound Margin Distinct, Outline Attached -Granulation Amt None Present (0 %) -Slough/Fibrin Yes -Necrosis Amt Large (67-100%) -Necrotic Tissue Type Adherent Slough -Structure Exposed N/A -Texture (Marie-wound Skin Appearance) Scarring -Moisture (Marie-wound Skin Appearance Dry/Scaly ) -Color (Marie-wound Skin Appearance) Erythema Hemosiderin Staining -Temperature (Marie-wound Skin No Abnormality Appearance) (Pt Warm) -Tenderness on Palpation (Marie-wound No Skin Appearance) -Ulcer Cleansing Rinsed/ Irrigated with Saline -Foul Odor after Cleansing No -Anesthetic Used 4% Lidocaine Solution 5% Lidocaine Gel [Edema Assessment] -Lower Limb Edema Present Yes -Left Calf (cm) 43.6 -Left Ankle (cm) 29 WC - Nurse 2 - General Ulcer CM Notes Start: 06/14/18 09:58 Freq: Status: Active Protocol: Activity Type Activity Date Activity User E-Sign Co-Sign Detail Recorded Client Recorded Date Recorded By Document 06/21/18 10:52 [id number] 06/21/18 10:53 06/21/18 10:52 Wound Center Nurse 2 [Procedure/Treatment] #7- LT INFERIOR CALF CLUSTER -Time 10:52 -Correct Patient Yes -Correct Side, Site, Position Yes -Correct Procedure Yes -Procedure Performed Yes -Type of Procedure Debridement -Clinical Debridement Subcutaneous -Post Debridement Size (cm) - Length 0.9 -Post Debridement Size (cm) - Width 1.5 -Post Debridement Size (cm) - Depth 0.1 -Total Square Cm 1.35 -Wound/Ulcer Outcome Not Healed -Ulcer Cleansing Rinsed/ Irrigated with Saline -Foul Odor after Cleansing No -Bioengineered Tissue No -Topical Lidocaine (%) 5 -Bleeding Controlled with Pressure -Treatment Response Procedure Tolerated Well [See Physician Procedure note for Specifics] Pain Scale: 0-10 Numeric [Pain] -Is Patient Pain Free? Yes Musculoskeletal: No Tenderness to Palpation of Joints or Extremities, Muscle Wasting Neurological: - - Hypersensitivity to touch at the wound and periwound site consistent with previous exams his chronic pain syndrome Psych/Mental Status: Normal Affect, Appropriate Debridement Note Post-Debridement Measurements/Treatment WC - Nurse 2 - General Ulcer CM Notes Start: 06/14/18 09:58 Freq: Status: Active Protocol: Activity Type Activity Date Activity User E-Sign Co-Sign Detail Recorded Client Recorded Date Recorded By Document 06/14/18 10:34 [id number] 06/14/18 10:36 TM Document 06/21/18 10:52 [id number] 06/21/18 10:53 TM 06/14/18 06/21/18 10:34 10:52 Wound Center Nurse 2 #11- LT LIGHT -Time 10:34 -Correct Patient Yes -Correct Side, Site, Position Yes -Correct Procedure Yes -Procedure Performed Yes -Post Debridement Size (cm) - Length 0 -Post Debridement Size (cm) - Width 0 -Post Debridement Size (cm) - Depth 0 -Total Square Cm 0 -Wound/Ulcer Outcome Healed- Epithelialized -Ulcer Cleansing Rinsed/ Irrigated with Saline -Foul Odor after Cleansing No -Bioengineered Tissue No -Topical Lidocaine (%) 4 -Bleeding Controlled with NA -Treatment Response Procedure Tolerated Well #7- LT INFERIOR CALF CLUSTER -Time 10:35 10:52 -Correct Patient Yes Yes -Correct Side, Site, Position Yes Yes -Correct Procedure Yes Yes -Procedure Performed Yes Yes -Type of Procedure Debridement Debridement -Clinical Debridement Subcutaneous Subcutaneous -Post Debridement Size (cm) - Length 1.2 0.9 -Post Debridement Size (cm) - Width 1.0 1.5 -Post Debridement Size (cm) - Depth 0.1 0.1 -Total Square Cm 1.20 1.35 -Wound/Ulcer Outcome Not Healed Not Healed -Ulcer Cleansing Rinsed/ Rinsed/ Irrigated with Irrigated with Saline Saline -Foul Odor after Cleansing No No -Bioengineered Tissue No No -Topical Lidocaine (%) 4 5 -Bleeding Controlled with Pressure Pressure -Treatment Response Procedure Procedure Tolerated Well Tolerated Well Pain Scale: 0-10 Numeric Is Patient Pain Free? Yes Yes Wound debrided: leg Laterality: Left Type of Debridement: Excisional debridement Anesthesia Used: 4% Lidocaine Solution Depth: in the subcutaneous layer Percentage of wound debrided: 100 Instrument Used: #15 blade Tissue Removed: fibrous, devitalized subcutaneous, biofilm, slough Severity: Fat Layer Exposed Amount of bleeding with debridement: Mild Bleeding Controlled with: Pressure Patient tolerated procedure well Assessment/Plan Active Problems Ulcer of left lower extremity with fat layer exposed (Chronic) Venous insufficiency (Chronic) Chronic pain disorder (Chronic) Lymphedema (Chronic) Assessment: Left leg ulcer with fat layer exposed -anterior medial. Lymphedema. Delayed healing. Chronic pain syndrome. MRSA positive culture - previously treated medically Plan: I reviewed his wound and case today. Debridement was performed as noted in the clinical panel to the left medial leg wound site. It is noted that the left anterior leg site has healed and has full epithelialization. I recommended the application of hydrogel, to change daily. I recommend he gently cleanse the wound with antimicrobial [id number] soap. To avoid leaving open to the air. To avoid application of harsh cleaning agents or alcohol at home. He understands this will compromise cell viability. He has completed a full course of advanced wound care product application, epi fix. He tolerated this well and understands his treatment plan. I previously reviewed his pathology results which did not demonstrate a malignancy. His culture was previously positive for MRSA and he has completed a course of Bactrim; this has been completed and he is doing well. He does not have local or systemic signs of illness today. His CBC and CMP were reviewed without any gross abnormalities. His ESR was 6 and C-reactive protein was 24.9. He was advised to continue to treat his edema with tubigrips and have him continue to try and use his lymphedema pumps as much as possible. Compliance was discussed. Encourage increased protein intake for improved healing; Xavier prescription was provided at a previous visit. Updated vascular studies and labs were recommend. He had a previous venous Doppler in April 2017 follow-up on his previous deep venous thrombosis in his exam also demonstrated reflux in the left popliteal vein. This is consistent with the diagnosis of venous insufficiency. I recommend vascular reevaluation and a referral was provided. It is noted he had previous noninvasive arterial studies in September 2015 with bilateral biphasic waveforms, right PARADISE of 1.41, left PARADISE of 1.42, white toe brachial index of 1.06 and left toe brachial index of 1.05. He had a subsequent duplex arterial study with bilateral calcifications identified with no significant occlusive disease identified. To offload the posterior wounds by controlling the edema. He is able to wear the compression stockings that time. To return to clinic in 1 week or call sooner if he has any questions or concerns. I answered all his questions.
[2018-06-28 10:14] VITALS: BP 118/77; PULSE 84; RESP 18; TEMP 36.2; BMI 43.5
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
[2018-07-05 10:03] VITALS: BP 129/70; PULSE 83; RESP 18; TEMP 36.6; BMI 43.5
--- NOTE | 2018-07-05 12:20 | PCM.WC.PN ---
(1) Ulcer of left lower extremity with fat layer exposed Status: Chronic Current Visit: Yes Code(s): L97.922 - Non-pressure chronic ulcer of unspecified part of left lower leg with fat layer exposed (2) Venous insufficiency Status: Chronic Current Visit: Yes Code(s): I87.2 - Venous insufficiency (chronic) (peripheral) (3) Chronic pain disorder Status: Chronic Current Visit: Yes Code(s): G89.4 - Chronic pain syndrome (4) Lymphedema Status: Chronic Current Visit: Yes Code(s): I89.0 - Lymphedema, not elsewhere classified Type of Wound Date of Service: 07/05/18 Chief Complaint: Nonhealing venous ulcer of left lower extremity History of Wound: Mauricio is here today for follow up of nonhealing ulcer of his left lower extremity. He denies fever, chill, nausea, vomiting. He denies redness or odors. He denies new injuries. He wears a recommend Tubigrip 20. He resumed compression pump use this past week. He applied a hydrogel last week as advised. Progress of Wound: Stable - Physical Exam Vital Signs Temp Pulse Resp BP 97.8 F 83 18 129/70 H 07/05/18 10:03 07/05/18 10:03 07/05/18 10:03 07/05/18 10:03 General: Alert, Oriented x3, Cooperative Extremities: No cyanosis, Capillary Refill Less than 3 Seconds, No Calf Tenderness - Negative Peace and Delacruz left, Diminished Peripheral Pulses, Edema Skin: Ulcer/ Wound - No purulence, no erythema, streaking odor, no infection. The wound remains superficial and the peripheral skin is atrophic, hairless, and with slight hyperpigmentation. Wound Measurements and Assessment WC - Nurse 1 - General Ulcer Measurement Start: 06/14/18 09:58 Freq: Status: Active Protocol: Activity Type Activity Date Activity User E-Sign Co-Sign Detail Recorded Client Recorded Date Recorded By Document 07/05/18 10:03 [email or web address] [id number] 07/05/18 10:07 [email or web address] 07/05/18 10:03 Wound Center Nurse 1 [Ulcer Assessment] #7- LT INFERIOR CALF CLUSTER -Combined with other wound No -Current Size (cm) - Length 0.5 -Current Size (cm) - Width 0.5 -Current Size (cm) - Depth 0.1 -Total Square Cm 0.25 -Photo Taken No -Epithelialization Large 67-100% -Tunneling No -Undermining/Tunneling No -Circular Undermining No -Exudate Amt None Present (0 %) -Wound Margin Flat & Intact -Granulation Amt Medium (34-66%) -Granulation Quality Red -Slough/Fibrin Yes -Necrosis Amt Medium (34-66%) -Necrotic Tissue Type Adherent Slough -Structure Exposed N/A -Texture (Marie-wound Skin Appearance) Assessed Localized Edema Scarring -Moisture (Marie-wound Skin Appearance Assessed ) Dry/Scaly -Color (Marie-wound Skin Appearance) Assessed Hemosiderin Staining -Temperature (Marie-wound Skin No Abnormality Appearance) (Pt Warm) -Tenderness on Palpation (Marie-wound No Skin Appearance) -Ulcer Cleansing Rinsed/ Irrigated with Saline -Foul Odor after Cleansing No -Anesthetic Used 4% Lidocaine Solution [Edema Assessment] -Lower Limb Edema Present Yes -Left Calf (cm) 44 -Left Ankle (cm) 28 WC - Nurse 2 - General Ulcer CM Notes Start: 06/14/18 09:58 Freq: Status: Active Protocol: Activity Type Activity Date Activity User E-Sign Co-Sign Detail Recorded Client Recorded Date Recorded By Document 07/05/18 10:17 [id number] 07/05/18 10:18 07/05/18 10:17 Wound Center Nurse 2 [Procedure/Treatment] #7- LT INFERIOR CALF CLUSTER -Time 10:17 -Correct Patient Yes -Correct Side, Site, Position Yes -Correct Procedure Yes -Procedure Performed Yes -Type of Procedure Debridement -Clinical Debridement Subcutaneous -Post Debridement Size (cm) - Length 0.6 -Post Debridement Size (cm) - Width 0.6 -Post Debridement Size (cm) - Depth 0.1 -Total Square Cm 0.36 -Wound/Ulcer Outcome Not Healed -Ulcer Cleansing Rinsed/ Irrigated with Saline -Foul Odor after Cleansing No -Bioengineered Tissue No -Topical Lidocaine (%) 4 -Bleeding Controlled with Pressure -Treatment Response Procedure Tolerated Well [See Physician Procedure note for Specifics] Pain Scale: 0-10 Numeric [Pain] -Is Patient Pain Free? Yes Musculoskeletal: No Tenderness to Palpation of Joints or Extremities, Muscle Wasting Neurological: Sensory exam intact to light touch and pain - Hypersensitive consistent with previous exams Psych/Mental Status: Normal Affect, Appropriate Debridement Note Post-Debridement Measurements/Treatment WC - Nurse 2 - General Ulcer CM Notes Start: 06/14/18 09:58 Freq: Status: Active Protocol: Activity Type Activity Date Activity User E-Sign Co-Sign Detail Recorded Client Recorded Date Recorded By Document 06/14/18 10:34 [id number] 06/14/18 10:36 Document 06/21/18 10:52 [id number] 06/21/18 10:53 Document 06/28/18 10:23 [id number] 06/28/18 10:24 Document 07/05/18 10:17 [id number] 07/05/18 10:18 TM 06/14/18 06/21/18 06/28/18 10:34 10:52 10:23 Wound Center Nurse 2 #11- LT LIGHT -Time 10:34 -Correct Patient Yes -Correct Side, Site, Position Yes -Correct Procedure Yes -Procedure Performed Yes -Post Debridement Size (cm) - Length 0 -Post Debridement Size (cm) - Width 0 -Post Debridement Size (cm) - Depth 0 -Total Square Cm 0 -Wound/Ulcer Outcome Healed- Epithelialized -Ulcer Cleansing Rinsed/ Irrigated with Saline -Foul Odor after Cleansing No -Bioengineered Tissue No -Topical Lidocaine (%) 4 -Bleeding Controlled with NA -Treatment Response Procedure Tolerated Well #7- LT INFERIOR CALF CLUSTER -Time 10:35 10:52 10:23 -Correct Patient Yes Yes Yes -Correct Side, Site, Position Yes Yes Yes -Correct Procedure Yes Yes Yes -Procedure Performed Yes Yes Yes -Type of Procedure Debridement Debridement Debridement -Clinical Debridement Subcutaneous Subcutaneous Subcutaneous -Post Debridement Size (cm) - Length 1.2 0.9 0.8 -Post Debridement Size (cm) - Width 1.0 1.5 0.8 -Post Debridement Size (cm) - Depth 0.1 0.1 0.1 -Total Square Cm 1.20 1.35 0.64 -Wound/Ulcer Outcome Not Healed Not Healed Not Healed -Ulcer Cleansing Rinsed/ Rinsed/ Rinsed/ Irrigated with Irrigated with Irrigated with Saline Saline Saline -Foul Odor after Cleansing No No No -Bioengineered Tissue No No No -Topical Lidocaine (%) 4 5 -Bleeding Controlled with Pressure Pressure Pressure -Treatment Response Procedure Procedure Procedure Tolerated Well Tolerated Well Tolerated Well Pain Scale: 0-10 Numeric Is Patient Pain Free? Yes Yes Yes 07/05/18 10:17 Wound Center Nurse 2 #11- LT LIGHT -Time -Correct Patient -Correct Side, Site, Position -Correct Procedure -Procedure Performed -Post Debridement Size (cm) - Length -Post Debridement Size (cm) - Width -Post Debridement Size (cm) - Depth -Total Square Cm -Wound/Ulcer Outcome -Ulcer Cleansing -Foul Odor after Cleansing -Bioengineered Tissue -Topical Lidocaine (%) -Bleeding Controlled with -Treatment Response #7- LT INFERIOR CALF CLUSTER -Time 10:17 -Correct Patient Yes -Correct Side, Site, Position Yes -Correct Procedure Yes -Procedure Performed Yes -Type of Procedure Debridement -Clinical Debridement Subcutaneous -Post Debridement Size (cm) - Length 0.6 -Post Debridement Size (cm) - Width 0.6 -Post Debridement Size (cm) - Depth 0.1 -Total Square Cm 0.36 -Wound/Ulcer Outcome Not Healed -Ulcer Cleansing Rinsed/ Irrigated with Saline -Foul Odor after Cleansing No -Bioengineered Tissue No -Topical Lidocaine (%) 4 -Bleeding Controlled with Pressure -Treatment Response Procedure Tolerated Well Pain Scale: 0-10 Numeric Is Patient Pain Free? Yes Wound debrided: leg Laterality: Left Type of Debridement: Excisional debridement Anesthesia Used: 4% Lidocaine Solution Depth: in the subcutaneous layer Percentage of wound debrided: 100 Instrument Used: #15 blade Tissue Removed: fibrous, devitalized subcutaneous, biofilm, slough Severity: Fat Layer Exposed Amount of bleeding with debridement: Mild Bleeding Controlled with: Pressure Patient tolerated procedure well Assessment/Plan Active Problems Ulcer of left lower extremity with fat layer exposed (Chronic) Venous insufficiency (Chronic) Chronic pain disorder (Chronic) Lymphedema (Chronic) Assessment: Left leg ulcer with fat layer exposed. Lymphedema. Delayed healing. Chronic pain syndrome. MRSA positive culture -previously treated medically Plan: I reviewed his wound and case today. Debridement was performed as noted in the clinical panel to the left medial leg wound site. To change dressing daily with hydrogel with collagen and to avoid application of home products. I recommend he gently cleanse the wound with antimicrobial [id number] soap. To avoid leaving open to the air. To avoid application of harsh cleaning agents or alcohol at home. He understands this will compromise cell viability. He has completed a full course of advanced wound care product application, epi fix. He tolerated this well and understands his treatment plan. I previously reviewed his pathology results which did not demonstrate a malignancy. His culture was previously positive for MRSA and he has completed a course of Bactrim; this has been completed and he is doing well. He does not have local or systemic signs of illness today. His CBC and CMP were reviewed without any gross abnormalities. His ESR was 6 and C-reactive protein was 24.9. He was advised to continue to treat his edema with tubigrips and have him continue to try and use his lymphedema pumps as much as possible. Compliance was discussed. I encouraged increased protein intake for improved healing; Xavier prescription was provided at a previous visit. Updated vascular studies and labs were recommend. He had a previous venous Doppler in April 2017 follow-up on his previous deep venous thrombosis in his exam also demonstrated reflux in the left popliteal vein. This is consistent with the diagnosis of venous insufficiency. I recommend vascular reevaluation and a referral was provided. It is noted he had previous noninvasive arterial studies in September 2015 with bilateral biphasic waveforms, right PARADISE of 1.41, left PARADISE of 1.42, white toe brachial index of 1.06 and left toe brachial index of 1.05. He had a subsequent duplex arterial study with bilateral calcifications identified with no significant occlusive disease identified. To offload the posterior wounds by controlling the edema. He is able to wear the compression stockings that time. To return to clinic in 1 week or call sooner if he has any questions or concerns. I answered all his questions.
== END 2018-07-09 23:59 ==
LOC: WC 09:45
PROVIDERS: Family Provider Family Medicine; PCP Family Medicine; Visit Provider Podiatrist
DX: I87.2 Venous insufficiency (chronic) (peripheral) (principal); L97.822 Non-pressure chronic ulcer of other part of left lower leg with fat layer exposed; I89.0 Lymphedema, not elsewhere classified; Z86.14 Personal history of Methicillin resistant Staphylococcus aureus infection; Z86.718 Personal history of other venous thrombosis and embolism
CPT/HCPCS: 11042

== ENCOUNTER 2018-08-02 09:45 | Outpatient (RCR) | payer OTHER, SELFPAY ==
[2018-07-10 00:40] VITALS: BP 129/70; PULSE 83; RESP 18; TEMP 36.6; BMI 43.5
[2018-07-11 15:33] VITALS: BP 141/91; PULSE 96; RESP 18; TEMP 37.5; BMI 43.5
--- NOTE | 2018-07-11 16:17 | PCM.WC.PN ---
(1) Ulcer of left lower extremity with fat layer exposed Status: Chronic Code(s): L97.922 - Non-pressure chronic ulcer of unspecified part of left lower leg with fat layer exposed (2) MRSA (methicillin resistant staph aureus) culture positive Status: Resolved Code(s): Z22.322 - Carrier or suspected carrier of Methicillin resistant Staphylococcus aureus (3) Venous insufficiency Status: Chronic Code(s): I87.2 - Venous insufficiency (chronic) (peripheral) (4) Edema Status: Chronic Qualifiers: Edema type: localized Qualified Code(s): R60.0 - Localized edema Code(s): R60.9 - Edema, unspecified Type of Wound Date of Service: 07/11/18 Chief Complaint: Nonhealing venous ulcer of left lower extremity History of Wound: Mauricio is here today for follow up of nonhealing ulcer of his left lower extremity. He denies fever, chill, nausea, vomiting. He denies redness or odors. He denies new injuries. He resumed compression pump use. He applied a hydrogel last week as advised. Progress of Wound: Improving - Physical Exam Vital Signs Temp Pulse Resp BP 99.5 F H 96 18 141/91 H 07/11/18 15:33 07/11/18 15:33 07/11/18 15:33 07/11/18 15:33 General: Alert, Oriented x3, Cooperative Extremities: No cyanosis, Capillary Refill Less than 3 Seconds, No Calf Tenderness - Negative Peace and Delacruz sign bilateral, Diminished Peripheral Pulses, Edema - Bilateral lower extremities with associated hyperpigmentation that is consistent with previous evaluations Skin: Ulcer/ Wound - No purulence, no erythematous ring, no odor, no infection. There is peripheral epithelialization noted in the wound is decreasing in size. The peripheral skin is atrophic Wound Measurements and Assessment WC - Nurse 1 - General Ulcer Measurement Start: 07/11/18 15:32 Freq: Status: Active Protocol: Activity Type Activity Date Activity User E-Sign Co-Sign Detail Recorded Client Recorded Date Recorded By Document 07/11/18 15:33 RB [id number] 07/11/18 15:45 RB 07/11/18 15:33 Wound Center Nurse 1 [Ulcer Assessment] #7- LT INFERIOR CALF CLUSTER -Combined with other wound No -Current Size (cm) - Length 0.6 -Current Size (cm) - Width 0.9 -Current Size (cm) - Depth 0.1 -Total Square Cm 0.54 -Photo Taken No -Tunneling No -Undermining/Tunneling No -Circular Undermining No -Classification - Thickness Full Thickness without Exposed Support Structure -Exudate Amt Small (1-33%) -Exudate Type Serosanguineous -Wound Margin Distinct, Outline Attached -Granulation Amt Large (67-100%) -Granulation Quality [place] -Slough/Fibrin Yes -Necrosis Amt Small (1-33%) -Necrotic Tissue Type Adherent Slough -Structure Exposed N/A -Texture (Marie-wound Skin Appearance) Assessed -Moisture (Marie-wound Skin Appearance Maceration ) -Color (Marie-wound Skin Appearance) Assessed -Temperature (Marie-wound Skin No Abnormality Appearance) (Pt Warm) -Tenderness on Palpation (Marie-wound No Skin Appearance) -Ulcer Cleansing Rinsed/ Irrigated with Saline -Foul Odor after Cleansing No -Anesthetic Used 4% Lidocaine Solution [Edema Assessment] -Lower Limb Edema Present Yes -Left Calf (cm) 44 -Left Ankle (cm) 28.5 WC - Nurse 2 - General Ulcer CM Notes Start: 07/11/18 15:32 Freq: Status: Active Protocol: Activity Type Activity Date Activity User E-Sign Co-Sign Detail Recorded Client Recorded Date Recorded By Document 07/11/18 15:56 [id number] 07/11/18 15:57 07/11/18 15:56 Wound Center Nurse 2 [Procedure/Treatment] #7- LT INFERIOR CALF CLUSTER -Time 15:56 -Correct Patient Yes -Correct Side, Site, Position Yes -Correct Procedure Yes -Procedure Performed Yes -Type of Procedure Debridement -Clinical Debridement Subcutaneous -Post Debridement Size (cm) - Length 0.4 -Post Debridement Size (cm) - Width 0.3 -Post Debridement Size (cm) - Depth 0.1 -Total Square Cm 0.12 -Wound/Ulcer Outcome Not Healed -Ulcer Cleansing Rinsed/ Irrigated with Saline -Foul Odor after Cleansing No -Bioengineered Tissue No -Topical Lidocaine (%) 4 -Bleeding Controlled with Pressure -Treatment Response Procedure Tolerated Well [See Physician Procedure note for Specifics] Pain Scale: 0-10 Numeric [Pain] -Is Patient Pain Free? Yes Musculoskeletal: No Tenderness to Palpation of Joints or Extremities, Muscle Wasting Neurological: Sensory exam intact to light touch and pain - Hypersensitive to touch Psych/Mental Status: Normal Affect, Appropriate Debridement Note Post-Debridement Measurements/Treatment WC - Nurse 2 - General Ulcer CM Notes Start: 07/11/18 15:32 Freq: Status: Active Protocol: Activity Type Activity Date Activity User E-Sign Co-Sign Detail Recorded Client Recorded Date Recorded By Document 07/11/18 15:56 TM [id number] 07/11/18 15:57 TM 07/11/18 15:56 Wound Center Nurse 2 #7- LT INFERIOR CALF CLUSTER -Time 15:56 -Correct Patient Yes -Correct Side, Site, Position Yes -Correct Procedure Yes -Procedure Performed Yes -Type of Procedure Debridement -Clinical Debridement Subcutaneous -Post Debridement Size (cm) - Length 0.4 -Post Debridement Size (cm) - Width 0.3 -Post Debridement Size (cm) - Depth 0.1 -Total Square Cm 0.12 -Wound/Ulcer Outcome Not Healed -Ulcer Cleansing Rinsed/ Irrigated with Saline -Foul Odor after Cleansing No -Bioengineered Tissue No -Topical Lidocaine (%) 4 -Bleeding Controlled with Pressure -Treatment Response Procedure Tolerated Well Pain Scale: 0-10 Numeric Is Patient Pain Free? Yes Wound debrided: leg Laterality: Left Anesthesia Used: 4% Lidocaine Solution Depth: in the subcutaneous layer Percentage of wound debrided: 100 Instrument Used: #15 blade Tissue Removed: fibrous, devitalized subcutaneous, biofilm, slough Severity: Fat Layer Exposed Amount of bleeding with debridement: Mild Bleeding Controlled with: Pressure Patient tolerated procedure well Assessment/Plan Assessment: Left leg ulcer with fat layer exposed. Lymphedema. Delayed healing. Chronic pain syndrome. MRSA positive culture -previously treated medically Plan: I reviewed his wound and case today. Debridement was performed as noted in the clinical panel to the left medial leg wound site. To change dressing daily with hydrogel with collagen and to avoid application of home products. I recommend he gently cleanse the wound with antimicrobial [id number] soap. To avoid leaving open to the air. To avoid application of harsh cleaning agents or alcohol at home. He understands this will compromise cell viability. He has completed a full course of advanced wound care product application, epi fix. He tolerated this well and understands his treatment plan. I previously reviewed his pathology results which did not demonstrate a malignancy. His culture was previously positive for MRSA and he has completed a course of Bactrim; this has been completed and he is doing well. He does not have local or systemic signs of illness today. His CBC and CMP were reviewed without any gross abnormalities. His ESR was 6 and C-reactive protein was 24.9. He was advised to continue to treat his edema with tubigrips and have him continue to try and use his lymphedema pumps as much as possible. Compliance was discussed. I encouraged increased protein intake for improved healing; Xavier prescription was provided at a previous visit. Updated vascular studies and labs were recommend. He had a previous venous Doppler in April 2017 follow-up on his previous deep venous thrombosis in his exam also demonstrated reflux in the left popliteal vein. This is consistent with the diagnosis of venous insufficiency. I recommend vascular reevaluation and a referral was provided. It is noted he had previous noninvasive arterial studies in September 2015 with bilateral biphasic waveforms, right PARADISE of 1.41, left PARADISE of 1.42, white toe brachial index of 1.06 and left toe brachial index of 1.05. He had a subsequent duplex arterial study with bilateral calcifications identified with no significant occlusive disease identified. To offload the posterior wounds by controlling the edema. He is able to wear the compression stockings that time. To return to clinic in 1 week or call sooner if he has any questions or concerns. I answered all his questions.
[2018-07-19 09:48] VITALS: BP 159/89; PULSE 88; RESP 20; TEMP 36.2; BMI 43.5
--- NOTE | 2018-07-19 10:38 | PCM.WC.PN ---
(1) Ulcer of left lower extremity with fat layer exposed Status: Resolved Current Visit: Yes Code(s): L97.922 - Non-pressure chronic ulcer of unspecified part of left lower leg with fat layer exposed (2) MRSA (methicillin resistant staph aureus) culture positive Status: Resolved Current Visit: Yes Code(s): Z22.322 - Carrier or suspected carrier of Methicillin resistant Staphylococcus aureus (3) Venous insufficiency Status: Chronic Current Visit: Yes Code(s): I87.2 - Venous insufficiency (chronic) (peripheral) (4) Edema Status: Chronic Current Visit: Yes Qualifiers: Edema type: localized Qualified Code(s): R60.0 - Localized edema Code(s): R60.9 - Edema, unspecified Type of Wound Date of Service: 07/19/18 Chief Complaint: Nonhealing venous ulcer of left lower extremity History of Wound: Mauricio is here today for follow up of nonhealing ulcer of his left lower extremity. He denies fever, chill, nausea, vomiting. He denies redness or odors. He denies new injuries. He resumed compression pump use. He applied a hydrogel last week as advised. He denies drainage for several days and thinks the ulcer site has healed. Progress of Wound: Healed - Physical Exam Vital Signs Temp Pulse Resp BP 97.1 F L 88 20 H 159/89 H 07/19/18 09:48 07/19/18 09:48 07/19/18 09:48 07/19/18 09:48 General: Alert, Oriented x3, Cooperative Extremities: No cyanosis, Capillary Refill Less than 3 Seconds, No Calf Tenderness - Negative Peace and Delacruz left, Diminished Peripheral Pulses, Edema Skin: Ulcer/ Wound - Full epithelialization is noted upon gentle removal of skin slough. There is no purulence, erythema, streaking, odor, or blister formation or necrosis left leg. His skin in general to this limb is atrophic and hairless and with intermittent hyperpigmentation that is unchanged compared to previous visits. Wound Measurements and Assessment WC - Nurse 1 - General Ulcer Measurement Start: 07/11/18 15:32 Freq: Status: Active Protocol: Activity Type Activity Date Activity User E-Sign Co-Sign Detail Recorded Client Recorded Date Recorded By Document 07/19/18 09:48 DL [id number] 07/19/18 09:51 DL 07/19/18 09:48 Wound Center Nurse 1 [Ulcer Assessment] #7- LT INFERIOR CALF CLUSTER -Current Size (cm) - Length 0.7 -Current Size (cm) - Width 0.2 -Current Size (cm) - Depth 0.1 -Total Square Cm 0.14 -Photo Taken Yes -Exudate Amt Small (1-33%) -Exudate Type Serosanguineous -Wound Margin Distinct, Outline Attached -Granulation Amt Small (1-33%) -Granulation Quality [place] -Necrosis Amt Small (1-33%) -Necrotic Tissue Type Adherent Slough -Structure Exposed N/A -Texture (Marie-wound Skin Appearance) Scarring -Moisture (Marie-wound Skin Appearance No Abnormality ) -Color (Marie-wound Skin Appearance) Hemosiderin Staining -Temperature (Marie-wound Skin No Abnormality Appearance) (Pt Warm) -Tenderness on Palpation (Marie-wound No Skin Appearance) -Ulcer Cleansing Rinsed/ Irrigated with Saline -Foul Odor after Cleansing No -Anesthetic Used 4% Lidocaine Solution [Edema Assessment] -Left Calf (cm) 43.7 -Left Ankle (cm) 29 WC - Nurse 2 - General Ulcer CM Notes Start: 07/11/18 15:32 Freq: Status: Active Protocol: Activity Type Activity Date Activity User E-Sign Co-Sign Detail Recorded Client Recorded Date Recorded By Document 07/19/18 10:05 KARTHIK [id number] 07/19/18 10:06 KARTHIK 07/19/18 10:05 Wound Center Nurse 2 [Procedure/Treatment] #7- LT INFERIOR CALF CLUSTER -Correct Patient No -Correct Side, Site, Position No -Correct Procedure No -Procedure Performed No -Post Debridement Size (cm) - Length 0 -Post Debridement Size (cm) - Width 0 -Post Debridement Size (cm) - Depth 0 -Total Square Cm 0 -Wound/Ulcer Outcome Healed- Epithelialized [See Physician Procedure note for Specifics] Pain Scale: 0-10 Numeric [Pain] -Is Patient Pain Free? Yes Musculoskeletal: No Tenderness to Palpation of Joints or Extremities, Muscle Wasting, - - Compartments remain soft on palpation left lower extremity Neurological: Sensory exam intact to light touch and pain - Hypersensitivity to light touch is decreased today compared to previous visits Psych/Mental Status: Normal Affect, Appropriate Debridement Note Post-Debridement Measurements/Treatment WC - Nurse 2 - General Ulcer CM Notes Start: 07/11/18 15:32 Freq: Status: Active Protocol: Activity Type Activity Date Activity User E-Sign Co-Sign Detail Recorded Client Recorded Date Recorded By Document 07/11/18 15:56 [id number] 07/11/18 15:57 Document 07/19/18 10:05 [id number] 07/19/18 10:06 KARTHIK 07/11/18 07/19/18 15:56 10:05 Wound Center Nurse 2 #7- LT INFERIOR CALF CLUSTER -Time 15:56 -Correct Patient Yes No -Correct Side, Site, Position Yes No -Correct Procedure Yes No -Procedure Performed Yes No -Type of Procedure Debridement -Clinical Debridement Subcutaneous -Post Debridement Size (cm) - Length 0.4 0 -Post Debridement Size (cm) - Width 0.3 0 -Post Debridement Size (cm) - Depth 0.1 0 -Total Square Cm 0.12 0 -Wound/Ulcer Outcome Not Healed Healed- Epithelialized -Ulcer Cleansing Rinsed/ Irrigated with Saline -Foul Odor after Cleansing No -Bioengineered Tissue No -Topical Lidocaine (%) 4 -Bleeding Controlled with Pressure -Treatment Response Procedure Tolerated Well Pain Scale: 0-10 Numeric Is Patient Pain Free? Yes Yes No debridement was completed today - The ulcer site has healed Assessment/Plan Active Problems Venous insufficiency (Chronic) Edema (Chronic) Assessment: Left leg ulcer healed today. Lymphedema. Delayed healing. Chronic pain syndrome. MRSA positive culture -previously treated medically Plan: I reviewed his wound and case today. Debridement was not performed today because the ulcer site is healed. To allow skin remodeling over the next 2 weeks and to apply dry gauze over this friable location. I recommend he gently cleanse the wound with antimicrobial [id number] soap. To avoid aggressive cleansing to this recently healed site. he does not have local or systemic signs of illness today. He was advised to continue to treat his edema with tubigrips and have him continue to try and use his lymphedema pumps as much as possible. It is okay to to discontinue nutritional supplementation shakes because the ulcer site has healed. To maintain good peripheral skin integrity by using a gentle moisturizer. I answered all his questions. To return to clinic in 2 weeks or call sooner if he has any questions or concerns to evaluate this recently friable healed ulcer site.
--- NOTE | 2018-07-19 10:43 | PN.PCM_ITS ---
(1) Ulcer of left lower extremity with fat layer exposed Status: Resolved Current Visit: Yes Code(s): L97.922 - Non-pressure chronic ulcer of unspecified part of left lower leg with fat layer exposed (2) MRSA (methicillin resistant staph aureus) culture positive Status: Resolved Current Visit: Yes Code(s): Z22.322 - Carrier or suspected carrier of Methicillin resistant Staphylococcus aureus (3) Venous insufficiency Status: Chronic Current Visit: Yes Code(s): I87.2 - Venous insufficiency (chronic) (peripheral) (4) Edema Status: Chronic Current Visit: Yes Qualifiers: Edema type: localized Qualified Code(s): R60.0 - Localized edema Code(s): R60.9 - Edema, unspecified Type of Wound Date of Service: 07/19/18 Chief Complaint: Nonhealing venous ulcer of left lower extremity History of Wound: Mauricio is here today for follow up of nonhealing ulcer of his left lower extremity. He denies fever, chill, nausea, vomiting. He denies redness or odors. He denies new injuries. He resumed compression pump use. He applied a hydrogel last week as advised. He denies drainage for several days and thinks the ulcer site has healed. Progress of Wound: Healed - Physical Exam Vital Signs Temp Pulse Resp BP 97.1 F L 88 20 H 159/89 H 07/19/18 09:48 07/19/18 09:48 07/19/18 09:48 07/19/18 09:48 General: Alert, Oriented x3, Cooperative Extremities: No cyanosis, Capillary Refill Less than 3 Seconds, No Calf Tenderness - Negative Peace and Delacruz left, Diminished Peripheral Pulses, Edema Skin: Ulcer/ Wound - Full epithelialization is noted upon gentle removal of skin slough. There is no purulence, erythema, streaking, odor, or blister formation or necrosis left leg. His skin in general to this limb is atrophic and hairless and with intermittent hyperpigmentation that is unchanged compared to previous visits. Wound Measurements and Assessment WC - Nurse 1 - General Ulcer Measurement Start: 07/11/18 15:32 Freq: Status: Active Protocol: Activity Type Activity Date Activity User E-Sign Co-Sign Detail Recorded Client Recorded Date Recorded By Document 07/19/18 09:48 DL [id number] 07/19/18 09:51 DL 07/19/18 09:48 Wound Center Nurse 1 [Ulcer Assessment] #7- LT INFERIOR CALF CLUSTER -Current Size (cm) - Length 0.7 -Current Size (cm) - Width 0.2 -Current Size (cm) - Depth 0.1 -Total Square Cm 0.14 -Photo Taken Yes -Exudate Amt Small (1-33%) -Exudate Type Serosanguineous -Wound Margin Distinct, Outline Attached -Granulation Amt Small (1-33%) -Granulation Quality [place] -Necrosis Amt Small (1-33%) -Necrotic Tissue Type Adherent Slough -Structure Exposed N/A -Texture (Marie-wound Skin Appearance) Scarring -Moisture (Marie-wound Skin Appearance No Abnormality ) -Color (Marie-wound Skin Appearance) Hemosiderin Staining -Temperature (Marie-wound Skin No Abnormality Appearance) (Pt Warm) -Tenderness on Palpation (Marie-wound No Skin Appearance) -Ulcer Cleansing Rinsed/ Irrigated with Saline -Foul Odor after Cleansing No -Anesthetic Used 4% Lidocaine Solution [Edema Assessment] -Left Calf (cm) 43.7 -Left Ankle (cm) 29 WC - Nurse 2 - General Ulcer CM Notes Start: 07/11/18 15:32 Freq: Status: Active Protocol: Activity Type Activity Date Activity User E-Sign Co-Sign Detail Recorded Client Recorded Date Recorded By Document 07/19/18 10:05 KARTHIK [id number] 07/19/18 10:06 KARTHIK 07/19/18 10:05 Wound Center Nurse 2 [Procedure/Treatment] #7- LT INFERIOR CALF CLUSTER -Correct Patient No -Correct Side, Site, Position No -Correct Procedure No -Procedure Performed No -Post Debridement Size (cm) - Length 0 -Post Debridement Size (cm) - Width 0 -Post Debridement Size (cm) - Depth 0 -Total Square Cm 0 -Wound/Ulcer Outcome Healed- Epithelialized [See Physician Procedure note for Specifics] Pain Scale: 0-10 Numeric [Pain] -Is Patient Pain Free? Yes Musculoskeletal: No Tenderness to Palpation of Joints or Extremities, Muscle Wasting, - - Compartments remain soft on palpation left lower extremity Neurological: Sensory exam intact to light touch and pain - Hypersensitivity to light touch is decreased today compared to previous visits Psych/Mental Status: Normal Affect, Appropriate Debridement Note Post-Debridement Measurements/Treatment WC - Nurse 2 - General Ulcer CM Notes Start: 07/11/18 15:32 Freq: Status: Active Protocol: Activity Type Activity Date Activity User E-Sign Co-Sign Detail Recorded Client Recorded Date Recorded By Document 07/11/18 15:56 [id number] 07/11/18 15:57 Document 07/19/18 10:05 [id number] 07/19/18 10:06 KARTHIK 07/11/18 07/19/18 15:56 10:05 Wound Center Nurse 2 #7- LT INFERIOR CALF CLUSTER -Time 15:56 -Correct Patient Yes No -Correct Side, Site, Position Yes No -Correct Procedure Yes No -Procedure Performed Yes No -Type of Procedure Debridement -Clinical Debridement Subcutaneous -Post Debridement Size (cm) - Length 0.4 0 -Post Debridement Size (cm) - Width 0.3 0 -Post Debridement Size (cm) - Depth 0.1 0 -Total Square Cm 0.12 0 -Wound/Ulcer Outcome Not Healed Healed- Epithelialized -Ulcer Cleansing Rinsed/ Irrigated with Saline -Foul Odor after Cleansing No -Bioengineered Tissue No -Topical Lidocaine (%) 4 -Bleeding Controlled with Pressure -Treatment Response Procedure Tolerated Well Pain Scale: 0-10 Numeric Is Patient Pain Free? Yes Yes No debridement was completed today - The ulcer site has healed Assessment/Plan Active Problems Venous insufficiency (Chronic) Edema (Chronic) Assessment: Left leg ulcer healed today. Lymphedema. Delayed healing. Chronic pain syndrome. MRSA positive culture -previously treated medically Plan: I reviewed his wound and case today. Debridement was not performed today because the ulcer site is healed. To allow skin remodeling over the next 2 weeks and to apply dry gauze over this friable location. I recommend he gently cleanse the wound with antimicrobial [id number] soap. To avoid aggressive cleansing to this recently healed site. he does not have local or systemic signs of illness today. He was advised to continue to treat his edema with tubigrips and have him continue to try and use his lymphedema pumps as much as possible. It is okay to to discontinue nutritional supplementation shakes because the ulcer site has healed. To maintain good peripheral skin integrity by using a gentle moisturizer. I answered all his questions. To return to clinic in 2 weeks or call sooner if he has any questions or concerns to evaluate this recently friable healed ulcer site.
[2018-08-02 09:57] VITALS: RESP 16; TEMP 35.4; BMI 43.5
--- NOTE | 2018-08-02 11:22 | PCM.WC.PN ---
(1) Ulcer of left lower extremity with fat layer exposed Status: Acute Current Visit: Yes Code(s): L97.922 - Non-pressure chronic ulcer of unspecified part of left lower leg with fat layer exposed (2) MRSA (methicillin resistant staph aureus) culture positive Status: Resolved Current Visit: Yes Code(s): Z22.322 - Carrier or suspected carrier of Methicillin resistant Staphylococcus aureus (3) Venous insufficiency Status: Chronic Current Visit: Yes Code(s): I87.2 - Venous insufficiency (chronic) (peripheral) (4) Edema Status: Chronic Current Visit: Yes Qualifiers: Edema type: localized Qualified Code(s): R60.0 - Localized edema Code(s): R60.9 - Edema, unspecified Type of Wound Date of Service: 08/02/18 Chief Complaint: Nonhealing venous ulcer of left lower extremity. New ulcer left leg History of Wound: Mauricio is here today for follow up of nonhealing ulcer of his left lower extremity. He denies fever, chill, nausea, vomiting. He denies redness or odors. He relates his ulcer site has healed and now he has a new opening that occurred from dry skin. He does have some increased leg swelling as well. He wants to resume bone broth use. Progress of Wound: Healed. New left leg ulcer - Physical Exam Vital Signs Temp Pulse Resp BP 95.7 F L 88 16 159/89 H 08/02/18 09:57 07/19/18 09:48 08/02/18 09:57 07/19/18 09:48 General: Alert, Oriented x3, Cooperative Extremities: No cyanosis, Capillary Refill Less than 3 Seconds, No Calf Tenderness - Negative Peace and Delacruz bilateral, Diminished Peripheral Pulses, Edema - Increased left lower extremity Skin: Ulcer/ Wound - No purulence, erythema, streaking, odor, no maceration left leg. The previous ulcer site has fully epithelialized and is healed today. There is a new skin discontinuity to the anterior central left leg with granular base with reported onset of Tuesday. No fluctuance on palpation edilia-ulcer site, - - No calor left leg Wound Measurements and Assessment WC - Nurse 1 - General Ulcer Measurement Start: 07/11/18 15:32 Freq: Status: Active Protocol: Activity Type Activity Date Activity User E-Sign Co-Sign Detail Recorded Client Recorded Date Recorded By Document 08/02/18 09:57 [facility] [id number] 08/02/18 10:02 [facility] 08/02/18 09:57 Wound Center Nurse 1 [Edema Assessment] -Lower Limb Edema Present Yes -Left Calf (cm) 43.8 -Left Ankle (cm) 29.6 - Nurse 2 - General Ulcer CM Notes Start: 07/11/18 15:32 Freq: Status: Active Protocol: Activity Type Activity Date Activity User E-Sign Co-Sign Detail Recorded Client Recorded Date Recorded By Document 08/02/18 10:21 [id number] 08/02/18 10:24 08/02/18 10:21 Wound Center Nurse 2 [Procedure/Treatment] #12 [place] ulcer -Time 10:23 -Correct Patient Yes -Correct Side, Site, Position Yes -Correct Procedure Yes -Procedure Performed Yes -Post Debridement Size (cm) - Length 0.4 -Post Debridement Size (cm) - Width 0.5 -Post Debridement Size (cm) - Depth 0.1 -Total Square Cm 0.20 -Wound/Ulcer Outcome Not Healed -Ulcer Cleansing Rinsed/ Irrigated with Saline -Foul Odor after Cleansing No -Bioengineered Tissue No -Bleeding Controlled with NA -Treatment Response Procedure Tolerated Well [See Physician Procedure note for Specifics] Pain Scale: 0-10 Numeric [Pain] -Is Patient Pain Free? Yes Musculoskeletal: No Tenderness to Palpation of Joints or Extremities, Muscle Wasting Neurological: Sensory exam intact to light touch and pain - Hypersensitive Psych/Mental Status: Normal Affect, Appropriate Debridement Note Post-Debridement Measurements/Treatment - Nurse 2 - General Ulcer CM Notes Start: 07/11/18 15:32 Freq: Status: Active Protocol: Activity Type Activity Date Activity User E-Sign Co-Sign Detail Recorded Client Recorded Date Recorded By Document 07/11/18 15:56 TM [id number] 07/11/18 15:57 Document 07/19/18 10:05 [id number] 07/19/18 10:06 Document 08/02/18 10:21 TM [id number] 08/02/18 10:24 TM 07/11/18 07/19/18 08/02/18 15:56 10:05 10:21 Wound Center Nurse 2 #12 [place] ulcer -Time 10:23 -Correct Patient Yes -Correct Side, Site, Position Yes -Correct Procedure Yes -Procedure Performed Yes -Post Debridement Size (cm) - Length 0.4 -Post Debridement Size (cm) - Width 0.5 -Post Debridement Size (cm) - Depth 0.1 -Total Square Cm 0.20 -Wound/Ulcer Outcome Not Healed -Ulcer Cleansing Rinsed/ Irrigated with Saline -Foul Odor after Cleansing No -Bioengineered Tissue No -Bleeding Controlled with NA -Treatment Response Procedure Tolerated Well #7- LT INFERIOR CALF CLUSTER -Time 15:56 -Correct Patient Yes No -Correct Side, Site, Position Yes No -Correct Procedure Yes No -Procedure Performed Yes No -Type of Procedure Debridement -Clinical Debridement Subcutaneous -Post Debridement Size (cm) - Length 0.4 0 -Post Debridement Size (cm) - Width 0.3 0 -Post Debridement Size (cm) - Depth 0.1 0 -Total Square Cm 0.12 0 -Wound/Ulcer Outcome Not Healed Healed- Epithelialized -Ulcer Cleansing Rinsed/ Irrigated with Saline -Foul Odor after Cleansing No -Bioengineered Tissue No -Topical Lidocaine (%) 4 -Bleeding Controlled with Pressure -Treatment Response Procedure Tolerated Well Pain Scale: 0-10 Numeric Is Patient Pain Free? Yes Yes Yes No debridement was completed today - Patient refused debridement Assessment/Plan Active Problems Ulcer of left lower extremity with fat layer exposed (Acute) Venous insufficiency (Chronic) Edema (Chronic) Assessment: Left leg ulcer healed today. New anterior left leg ulcer. Lymphedema. Delayed healing. Chronic pain syndrome. MRSA positive culture -previously treated medically Plan: I reviewed his wound and case today. Debridement was not performed today to the new ulcer site because he refused. The recently healed ulcer site remains healed and he was reassured no infection are noted. I recommend he gently cleanse the wound with antimicrobial [id number] soap. To avoid aggressive cleansing to this recently healed site. he does not have local or systemic signs of illness today. He was advised to continue to treat his edema with tubigrips and have him continue to try and use his lymphedema pumps as much as possible. To resume nutritional supplementation. To maintain good peripheral skin integrity by using a gentle moisturizer. A prescription for Lac-Hydrin was provided. I do not necessarily recommend starting bone broth or other home remedy applications. I recommend he return to the wound healing center in 1 week or call sooner if he has any questions or concerns. I answered all his questions.
== END 2018-08-09 23:59 ==
LOC: WC 09:45
PROVIDERS: Visit Provider Podiatrist
DX: I87.2 Venous insufficiency (chronic) (peripheral) (principal); R60.0 Localized edema; Z86.14 Personal history of Methicillin resistant Staphylococcus aureus infection; L97.222 Non-pressure chronic ulcer of left calf with fat layer exposed; I89.0 Lymphedema, not elsewhere classified; Z86.718 Personal history of other venous thrombosis and embolism
CPT/HCPCS: 11042; 99213; G0463

== ENCOUNTER 2018-08-16 08:36 | Outpatient (RCR) | payer SELFPAY ==
[2018-08-10 00:46] VITALS: BP 159/89; PULSE 88; RESP 16; TEMP 35.4; BMI 43.5
[2018-08-16 10:46] VITALS: BP 134/82; PULSE 75; RESP 18; TEMP 35.9; BMI 43.5
--- NOTE | 2018-08-16 11:57 | PCM.WC.PN ---
(1) Ulcer of left lower extremity with fat layer exposed Status: Resolved Current Visit: Yes Code(s): L97.922 - Non-pressure chronic ulcer of unspecified part of left lower leg with fat layer exposed (2) Edema Status: Chronic Current Visit: Yes Qualifiers: Code(s): R60.9 - Edema, unspecified (3) Lymphedema Status: Chronic Current Visit: Yes Code(s): I89.0 - Lymphedema, not elsewhere classified Type of Wound Date of Service: 08/16/18 Chief Complaint: Healed ulcer History of Wound: Mauricio is here today for follow up of ulcer of his left lower extremity. He denies drainage this past week and thinks it may have healed. He denies fever, chill, nausea, vomiting. He denies redness or odors. His swelling in his leg has decreased. Progress of Wound: Healed left leg ulcer - Physical Exam Vital Signs Temp Pulse Resp BP 96.7 F L 75 18 134/82 H 08/16/18 10:46 08/16/18 10:46 08/16/18 10:46 08/16/18 10:46 General: Alert, Oriented x3, Cooperative Extremities: No cyanosis, Capillary Refill Less than 3 Seconds, No Calf Tenderness - Negative Peace and Delacruz sign bilateral. Compartments are soft and supple on palpation left lower extremity, Diminished Peripheral Pulses, Edema - Mild to moderate bilateral lower extremities and decreased since last exam Skin: Ulcer/ Wound - The ulcer site has healed and there is full epithelialization noted to the left leg. Is no purulence, erythema, streaking, odor, or infection or blisters. Wound Measurements and Assessment WC - Nurse 1 - General Ulcer Measurement Start: 08/16/18 10:46 Freq: Status: Active Protocol: Activity Type Activity Date Activity User E-Sign Co-Sign Detail Recorded Client Recorded Date Recorded By Document 08/16/18 10:46 DL [id number] 08/16/18 10:50 DL 08/16/18 10:46 Wound Center Nurse 1 [Ulcer Assessment] #12 [place] ulcer -Current Size (cm) - Length 0 -Current Size (cm) - Width 0 -Current Size (cm) - Depth 0 -Total Square Cm 0 -Photo Taken Yes -Exudate Amt None Present (0 %) -Wound Margin Flat & Intact -Granulation Amt Large (67-100%) -Granulation Quality [place] -Necrosis Amt None Present (0 %) -Structure Exposed N/A -Texture (Marie-wound Skin Appearance) Scarring -Moisture (Marie-wound Skin Appearance No Abnormality ) -Color (Marie-wound Skin Appearance) Hemosiderin Staining -Temperature (Marie-wound Skin No Abnormality Appearance) (Pt Warm) -Tenderness on Palpation (Marie-wound No Skin Appearance) -Foul Odor after Cleansing No [Edema Assessment] -Left Calf (cm) 43 -Left Ankle (cm) 28.2 - Nurse 2 - General Ulcer CM Notes Start: 08/16/18 10:46 Freq: Status: Active Protocol: Activity Type Activity Date Activity User E-Sign Co-Sign Detail Recorded Client Recorded Date Recorded By Document 08/16/18 11:03 [id number] 08/16/18 11:06 08/16/18 11:03 Wound Center Nurse 2 [Procedure/Treatment] #12 left [place] ulcer -Time 11:04 -Correct Patient Yes -Correct Side, Site, Position Yes -Correct Procedure Yes -Procedure Performed Yes -Post Debridement Size (cm) - Length 0 -Post Debridement Size (cm) - Width 0 -Post Debridement Size (cm) - Depth 0 -Total Square Cm 0 -Wound/Ulcer Outcome Healed- Epithelialized -Ulcer Cleansing Rinsed/ Irrigated with Saline -Foul Odor after Cleansing No -Bioengineered Tissue No -Bleeding Controlled with NA -Treatment Response Procedure Tolerated Well [See Physician Procedure note for Specifics] Pain Scale: 0-10 Numeric [Pain] -Is Patient Pain Free? Yes Musculoskeletal: No Tenderness to Palpation of Joints or Extremities, Muscle Wasting Neurological: Sensory exam intact to light touch and pain - Hypersensitivity to light touch noted Psych/Mental Status: Normal Affect, Appropriate Debridement Note Post-Debridement Measurements/Treatment - Nurse 2 - General Ulcer CM Notes Start: 08/16/18 10:46 Freq: Status: Active Protocol: Activity Type Activity Date Activity User E-Sign Co-Sign Detail Recorded Client Recorded Date Recorded By Document 08/16/18 11:03 [id number] 08/16/18 11:06 TM 08/16/18 11:03 Wound Center Nurse 2 #12 left [place] ulcer -Time 11:04 -Correct Patient Yes -Correct Side, Site, Position Yes -Correct Procedure Yes -Procedure Performed Yes -Post Debridement Size (cm) - Length 0 -Post Debridement Size (cm) - Width 0 -Post Debridement Size (cm) - Depth 0 -Total Square Cm 0 -Wound/Ulcer Outcome Healed- Epithelialized -Ulcer Cleansing Rinsed/ Irrigated with Saline -Foul Odor after Cleansing No -Bioengineered Tissue No -Bleeding Controlled with NA -Treatment Response Procedure Tolerated Well Pain Scale: 0-10 Numeric Is Patient Pain Free? Yes No debridement was completed today - The ulcer site has healed Assessment/Plan Active Problems Edema (Chronic) Lymphedema (Chronic) Assessment: Left leg ulcer healed today. Lymphedema. Delayed healing. Chronic pain syndrome. MRSA positive culture -previously treated medically Plan: I reviewed his wound and case today. Debridement was not performed today to the new ulcer site because it has healed. The recently healed ulcer site remains healed and he was reassured no infection are noted. he does not have local or systemic signs of illness today. He was advised to continue to treat his edema with tubigrips and have him continue to try and use his lymphedema pumps as much as possible. To discontinue nutritional supplementation. To maintain good peripheral skin integrity by using a gentle moisturizer. A prescription for Lac-Hydrin was previously provided. To discontinue ulcer dressing changes because the site has healed. He is discharged from the wound healing center at this time. To follow-up as needed.
== END 2018-09-08 23:59 ==
LOC: WC 08:36
PROVIDERS: Visit Provider Podiatrist
DX: Z09 Encounter for follow-up examination after completed treatment for conditions other than malignant neoplasm (principal); I87.2 Venous insufficiency (chronic) (peripheral); R60.0 Localized edema; I89.0 Lymphedema, not elsewhere classified; Z86.718 Personal history of other venous thrombosis and embolism; Z86.14 Personal history of Methicillin resistant Staphylococcus aureus infection
CPT/HCPCS: 99213; G0463

== ENCOUNTER → 2018-08-21 11:24 | Outpatient (CLI) | payer OTHER, SELFPAY ==
[2018-08-21 15:40] LABS: Anion Gap 6 (5-15); BUN 15 mg/dL (7-18); BUN/Creat Ratio 18.3 RATIO (10-20); Calcium,Total 8.7 mg/dL (8.5-10.1); Chloride 103 mmol/L (98-107); Creatinine, Serum 0.82 mg/dL (0.70-1.30); EST Glomerular Filtration Rate 102 mL/min (>60); Est Glom Filt Rate - Afr Amer 123 mL/min (>60); Glucose 89 mg/dL (74-106); Potassium 4.2 mmol/L (3.5-5.1); Sodium Level 138 mmol/L (136-145)
== END ==
PROVIDERS: Family Provider Family Medicine; PCP Family Medicine; Visit Provider Family Medicine
DX: Z51.81 Encounter for therapeutic drug level monitoring (principal); I10 Essential (primary) hypertension
CPT/HCPCS: 36415; 80048

== ENCOUNTER → 2018-10-05 16:03 | Outpatient (CLI) | payer OTHER, SELFPAY ==
[2018-10-05 18:02] LABS: ALB/GLOB Ratio 1.2 RATIO (0.9-2.4); AST(SGOT) 12 U/L (15-37); Alanine Aminotransfer ALT/SGPT 22 U/L (16-61); Alkaline Phosphatase 93 U/L (45-117); Anion Gap 9 (5-15); BUN 17 mg/dL (7-18); BUN/Creat Ratio 17.4 RATIO (10-20); Calcium,Total 8.5 mg/dL (8.5-10.1); Chloride 104 mmol/L (98-107); Creatinine, Serum 0.98 mg/dL (0.70-1.30); EST Glomerular Filtration Rate 83 mL/min (>60); Est Glom Filt Rate - Afr Amer 100 mL/min (>60); Globulin 3.3 g/dL (2.2-4.2); Glucose 91 mg/dL (74-106); Magnesium 2.2 mg/dL (1.6-2.6); Potassium 4.1 mmol/L (3.5-5.1); Protein, Total 7.3 g/dL (6.4-8.2); Sodium Level 139 mmol/L (136-145)
[2018-10-05 18:07] LABS: Vitamin B12 429 pg/mL (211-911)
[2018-10-05 18:11] LABS: International Normalized Ratio 2.4
== END ==
PROVIDERS: Family Provider Family Medicine; PCP Family Medicine; Visit Provider Family Medicine
DX: G58.9 Mononeuropathy, unspecified (principal); M62.831 Muscle spasm of calf; E53.8 Deficiency of other specified B group vitamins; Z79.01 Long term (current) use of anticoagulants; Z86.718 Personal history of other venous thrombosis and embolism
CPT/HCPCS: 36415; 80053; 82607; 83735; 85610

== ENCOUNTER → 2018-12-13 10:23 | Outpatient (CLI) | payer OTHER, SELFPAY ==
--- NOTE | 2018-12-13 10:27 | RAD_ITS ---
STUDY: X-RAY - RIGHT KNEE REASON FOR EXAM: Male, 63 years old. Pain. TECHNIQUE: 4 view(s) of the knee. COMPARISON: None. FINDINGS: Normal visualized distal femur. Normal visualized proximal tibia and fibula. Normal proximal tibiofibular articulation. There is no demonstrated fracture. Normal medial femorotibial compartment. There is mild degenerative arthrosis of the lateral femorotibial compartment. There is moderate degenerative arthrosis of the patellofemoral articulation. There is no demonstrated joint effusion. The soft tissue structures are unremarkable. RAD/Knee 4 or More Views IMPRESSION: No acute abnormality. Degenerative changes. Electronically Signed: Lorenzo Miller MD at 21:59 EST , Service support ,
== END ==
PROVIDERS: Family Provider Family Medicine; PCP Family Medicine; Referring Provider Family Medicine; Visit Provider Family Medicine
DX: M25.561 Pain in right knee (principal)
CPT/HCPCS: 73564

== ENCOUNTER → 2018-12-18 12:00 | Outpatient (CLI) | payer OTHER, SELFPAY ==
[2018-12-18 13:58] LABS: Absolute Lymphocyte Count 1.37 X10^3/ul (0.83-4.51); Absolute Neutrophil Count 2.4 X10^3/uL (2.0-7.7); Basophil# 0.03 X10^3/uL; Basophil% 0.7 % (0-1); Eosinophil# 0.12 X10^3/uL; Eosinophils% 2.7 % (0-5); Hematocrit 50.4 % (40-54); Hemoglobin 16.3 g/dl (13.0-16.5); Lymphocyte # 1.37 X10^3/ul (4.0); Lymphocyte % 31.4 % (19-41); Mean Corp Hgb Conc 32.3 g/gl (32-36); Mean Corpuscular Hgb 32.7 pg (27.0-32.0); Mean Corpuscular Volume 101.2 fL (80-94); Mean Platelet Vol. 9.8 fl (6.2-12.0); Monocyte# 0.48 X10^3/uL; Neutrophil # 2.37 X10^3/uL (2.7-7.7); Neutrophil % 54.2 % (47-70); Platelet Count 247 K/mm3 (150-450); RBC Distribution Width CV 13.9 % (11.6-14.6); RBC Distribution Width SD 50.9 fl (35.1-43.9); Red Blood Count 4.98 M/mm3 (4.6-6.2); White Blood Count 4.4 K/mm3 (4.4-11.0)
[2018-12-18 14:02] LABS: POSITIVE COUNT NO; POSITIVE DIFFERENTIAL NO; POSITIVE MORPHOLOGY NO
[2018-12-18 14:10] LABS: International Normalized Ratio 2.2; Prothrombin Time (Protime)PT. 24.6 SECONDS (11.7-14.9)
[2018-12-18 14:19] LABS: ALB/GLOB Ratio 1.1 RATIO (0.9-2.4); AST(SGOT) 15 U/L (15-37); Alanine Aminotransfer ALT/SGPT 24 U/L (16-61); Albumin, Serum 4.1 g/dL (3.2-5.0); Alkaline Phosphatase 93 U/L (45-117); Anion Gap 9 (5-15); BUN 15 mg/dL (7-18); BUN/Creat Ratio 18.5 RATIO (10-20); Calcium,Total 8.7 mg/dL (8.5-10.1); Chloride 104 mmol/L (98-107); Creatinine, Serum 0.81 mg/dL (0.70-1.30); EST Glomerular Filtration Rate 103 mL/min (>60); Est Glom Filt Rate - Afr Amer 124 mL/min (>60); Globulin 3.9 g/dL (2.2-4.2); Glucose 90 mg/dL (74-106); Magnesium 2.4 mg/dL (1.6-2.6); Sodium Level 141 mmol/L (136-145)
== END ==
PROVIDERS: Family Provider Family Medicine; PCP Family Medicine; Referring Provider Family Medicine; Visit Provider Family Medicine
DX: R53.83 Other fatigue (principal); R20.0 Anesthesia of skin; Z86.718 Personal history of other venous thrombosis and embolism; Z79.01 Long term (current) use of anticoagulants
CPT/HCPCS: 36415; 80053; 83735; 85025; 85610

== ENCOUNTER → 2019-01-24 13:30 | Outpatient (CLI) | payer OTHER, SELFPAY | PROVIDERS: Family Provider Family Medicine; PCP Family Medicine; Referring Provider Family Medicine; Visit Provider Family Medicine | DX: L03.116 Cellulitis of left lower limb (principal); L02.416 Cutaneous abscess of left lower limb | CPT/HCPCS: 87070; 87075; 87077; 87186; 87205 ==

== ENCOUNTER → 2019-02-01 14:40 | Outpatient (CLI) | payer OTHER, SELFPAY ==
[2019-02-01 15:44] LABS: Absolute Lymphocyte Count 1.48 X10^3/ul (0.83-4.51); Absolute Neutrophil Count 2.9 X10^3/uL (2.0-7.7); Basophil# 0.03 X10^3/uL; Basophil% 0.6 % (0-1); Eosinophil# 0.14 X10^3/uL; Eosinophils% 2.7 % (0-5); Hematocrit 46.9 % (40-54); Hemoglobin 15.6 g/dl (13.0-16.5); Lymphocyte # 1.48 X10^3/ul (4.0); Lymphocyte % 28.7 % (19-41); Mean Corp Hgb Conc 33.3 g/gl (32-36); Mean Corpuscular Hgb 32.9 pg (27.0-32.0); Mean Corpuscular Volume 98.9 fL (80-94); Mean Platelet Vol. 9.5 fl (6.2-12.0); Monocyte% 11.7 % (0-10); Neutrophil # 2.89 X10^3/uL (2.7-7.7); Neutrophil % 56.1 % (47-70); Platelet Count 253 K/mm3 (150-450); RBC Distribution Width CV 14.2 % (11.6-14.6); Red Blood Count 4.74 M/mm3 (4.6-6.2); White Blood Count 5.2 K/mm3 (4.4-11.0)
[2019-02-01 15:48] LABS: POSITIVE COUNT NO; POSITIVE DIFFERENTIAL NO; POSITIVE MORPHOLOGY NO
[2019-02-01 15:50] LABS: Lipase 109 U/L (73-393)
[2019-02-01 16:02] LABS: Erythrocyte Sedimentation Rate 12 mm/hr (0-20)
[2019-02-01 16:50] LABS: Lactic Acid 1.8 mmol/L (0.4-2.0)
== END ==
PROVIDERS: Family Provider Family Medicine; PCP Family Medicine; Visit Provider Family Medicine
DX: L97.822 Non-pressure chronic ulcer of other part of left lower leg with fat layer exposed (principal); R10.9 Unspecified abdominal pain; L03.90 Cellulitis, unspecified; R78.81 Bacteremia
CPT/HCPCS: 36415; 83605; 83690; 85025; 85652; 86140; 87040

== ENCOUNTER → 2019-02-05 07:37 | Outpatient (CLI) | payer OTHER, SELFPAY ==
--- NOTE | 2019-02-05 07:40 | ART_ITS ---
Reason For Study: PAD Left Segmental Pressures Left brachial= 160mmHg. Left posterior tibial artery = 169mmHg. Left dorsalis pedis artery = 198mmHg. Left digit = 176 mmHg. The left dorsalis pedis waveforms are triphasic. The left posterior tibial artery waveforms are triphasic. Right Segmental Pressures Right brachial= 153mmHg. Right posterior tibial artery = 252mmHg. Right dorsalis pedis artery = 193mmHg. Right digit = 161 mmHg. The right dorsalis pedis waveforms are triphasic. The right posterior tibial artery waveforms are triphasic. Indices The right ankle brachial index by the dorsalis pedis is 1.21. The right ankle brachial index by the posterior tibial artery is 1.58. The right digital-brachial index is 1.01. The left ankle brachial index by the dorsalis pedis is 1.24. The left ankle brachial index by the posterior tibial artery is 1.06. The left digital-brachial index is 1.10. Interpretation Summary Triphasic Doppler waveforms are noted at ankle level bilaterally. Pulse-volume recording waveform amplitudes appear satisfactory at all levels bilaterally, including low-thigh, calf, ankle, and digital levels. The resting right ankle-brachial index is supra-normal. The resting left ankle- brachial index is normal. Digital-brachial indices are normal bilaterally. There is no evidence of significant arterial occlusive disease in the lower extremities bilaterally. Ordering Physician: Patricia Garcia Performed By: JAMIR NAVARRO RVT
--- NOTE | 2019-02-05 07:40 | VDLE_ITS ---
Reason For Study: edema, venous insufficiency RIGHT LEFT CFV, FV, POP V and T/P trunk are partially CFV, FV, POP V and T/P trunk are partially compressible with bright intraluminal echoes. compressible with bright intraluminal echoes. Reflux is noted in the POP V. Reflux is noted in the POP V. S-F Junction is incompetent for greater S-F Junction is competent. than .5 seconds. GSV is competent throughout. GSV is incompetent throughout for greater ASV below the knee is incompetent for greater than .5 seconds. GSV measures .57 x .59 cm. than .5 seconds. ASV measures .54 x .61 cm. ASV below the knee is incompetent for greater SSV is incompetent for greater than .5 than .5 seconds. ASV measures .29 x .30 cm. seconds. SSV measures .18 x .20 cm. SSV is incompetent for greater than .5 PTV is compressible. seconds. SSV measures .24 x .29 cm. LT PerV is compressible. PTV is compressible. RT PerV is compressible. Procedure Exam performed in department. The exam was diagnostic. Interpretation Summary Chronic venous changes are noted in the common femoral veins, femoral veins, popliteal veins, and tibio-peroneal trunks bilaterally, which are partially compressible and demonstrate bright intraluminal echogenicity. The popliteal veins are incompetent bilaterally. The posterior tibial veins and peroneal veins are patent and compressible bilaterally. The greater saphenous veins are patent and compressible bilaterally. The right sapheno-femoral junction is incompetent . The left sapheno-femoral junction is competent . The right greater saphenous vein appears segmentally incompetent. The left greater saphenous vein appears segmentally competent. Small saphenous veins are patent and incompetent bilaterally. An incompetent accessory saphenous vein is noted below the knee in each lower extremity. Ordering Physician: Patricia Garcia Performed By: Brannon Dumas RVMikayla
== END ==
PROVIDERS: Family Provider Family Medicine; PCP Family Medicine; Referring Provider Family Medicine; Visit Provider Family Medicine
DX: I73.9 Peripheral vascular disease, unspecified (principal); I87.2 Venous insufficiency (chronic) (peripheral); R60.9 Edema, unspecified
CPT/HCPCS: 93923; 93970

== ENCOUNTER 2019-02-07 08:40 | Emergency (ER) | payer OTHER, SELFPAY ==
[2019-02-07 08:41] VITALS: BP 132/85; PULSE 88; RESP 18; TEMP 36.9; O2SAT 99; BMI 41.9
--- NOTE | 2019-02-07 09:02 | ED.VIS.GEN ---
History of Present Illness Chief Complaint: Cellulitis Informant: Patient Onset: Weeks - Patient evaluated January 24 by PCP for wound anterior distal left leg secondary to chicken. Context: Sudden Onset Timing: Continuous Quality: Clear drainage from wound Location: Anterior lateral distal left leg Current Severity: Mild Maximum Severity: Mild Worsened by: Venous stasis Relieved by: 10-day course of doxycycline Associated Symptoms: Patient concerned because of drainage from wound left leg Narrative: Patient is an elderly male with history of bilateral lymphedema/venous stasis dermatitis who presents because of clear drainage from wound anterior lateral distal left leg. He was attacked by a chicken. He was seen by his PCP. He was placed on 10-day course of doxycycline. Wound culture grew streptococcal specimen. Blood cultures that were obtained February 01 were negative. He presents because of clear drainage from the wound. He denies fever, chills or night sweats. He denies leg pain, red streak or groin pain. He denies history of diabetes. He denies symptoms of claudication. He states he has been seen at the wound center in the past. Prior similar symptoms: Yes Recent Illness/Hospitalization: Yes - Past Medical History (1) BPH (benign prostatic hypertrophy) Status: Chronic (2) Edema Status: Chronic (3) History of CVA (cerebrovascular accident) Status: Chronic (4) History of DVT (deep vein thrombosis) Status: Chronic (5) History of pulmonary embolism Status: Chronic (6) Hyperlipidemia Status: Chronic (7) Hypertension Status: Chronic (8) Venous insufficiency Status: Chronic (9) Malignant neoplasm of skin of left lower leg Status: Ruled-out Past Medical History - Allergies and Home Meds Allergies/Adverse Reactions: Allergies ciprofloxacin [From Cipro] Adverse Reaction (Verified 02/07/19 08:40) PAIN IN FEET ciprofloxacin HCl [From Cipro] Adverse Reaction (Verified 02/07/19 08:40) PAIN IN FEET citalopram Adverse Reaction (Verified 02/07/19 08:40) SUICIDAL THOUGHTS SUICIDAL THOUGHTS doxycycline Adverse Reaction (Verified 02/07/19 08:40) Other gabapentin [From Neurontin] Adverse Reaction (Verified 02/07/19 08:40) EFFECTED VISION AND HEARING FOGGY, IT EFFECTED MY VISION AND MY HEARING hydrochlorothiazide Adverse Reaction (Verified 02/07/19 08:40) DIZZINESS dizziness STATINS Adverse Reaction (Uncoded 02/07/19 08:40) SEVERE MUSCLE PAINS SEVERE MUSCLE PAINS Primary Care Physician: Patricia Garcia DO [Primary Care Provider] - Prior records reviewed: Yes - Reviewed wound and blood cultures Surgical History: no surgical history, - - IVC Filter Smoking Status: Never smoker - Family History Maternal Family History: Reports: Heart Disease, Hypertension Paternal Family History: Reports: Cancer - Father with colon CA. Review of Systems General: Denies: Chills, Fever, Malaise, Sweats, Weight loss Eyes: Denies: Visual changes - bilaterally, Blurred Vision - bilaterally Cardiovascular: Denies: Chest pain, Palpitations Respiratory: Denies: Dyspnea, Dyspnea on exertion, Orthopnea Gastrointestinal: Denies: Abdominal pain, Nausea, Vomiting, Diarrhea Skin: Reports: Rash - Discoloration anterior left leg, Wounds - Distal lateral anterior left leg. Denies: Abscess, Abrasions Hematologic: Denies: Easy bruising, Easy bleeding Allergy: Denies: Uticaria Physical Exam Vital Signs/Narrative: Vital Signs Temp Pulse Resp BP Pulse Ox 02/07/19 08:41 98.5 F 88 18 132/85 H 99 Inital Vital Signs reviewed: Yes General: Well nourished, Well developed, No Acute Distress Head: Normocephalic, Atraumatic Eyes: Perrl, EOMI. Negative for: Pale conjunctiva, Scleral icterus, - ENT: Moist mucous membranes, No rhinorrhea Neck: Supple, Nontender, No lymphadenopathy, No JVD Cardiovascular: Regular rate, Regular rhythm, No murmurs, Normal S1, Normal S2 Respiratory: No distress, CTA bilaterally Extremities: Nontender, Edema - 2-3+ pitting edema with venous stasis dermatitis. Dressing was removed. Patient has wound with serous drainage. There is no erythema, warmth, induration or lymphangitis. There is no popliteal or inguinal lymphadenopathy. Skin: Normal color, - - Venous stasis dermatitis. Negative for: Cyanosis, Jaundice Neurological: Alert, Oriented x3, Cranial nerves II-XII grossly intact, Normal Strength, Normal Sensation, Normal Gait Psychological: Normal affect, Normal Mood Diagnostic/Tx/Re-eval - Medical Decision Making Wound culture and blood culture results were reviewed. Patient's findings are consistent with serous drainage from wound secondary to venous stasis with significant lymphedema. Presently there is no evidence of infection. Since his vitals are normal plan is to refer to wound clinic. Patient does have distal palpable pulses which are bounding. Patient was informed of culture results. Patient complained that his legs were weak. Motor strength is 5/5. Sensations intact. DTRs symmetric. EHL is intact. There is no clonus or Babinski sign noted. ED Disposition - Plan for ED Patient: Disposition: Home or Assisted Living Diagnosis: Wound of lower extremity, Venous stasis dermatitis of both lower extremities Instructions: ED Lymphedema, ED Wound Care Referrals: Patricia Garcia DO [Primary Care Provider] - 3-5 Days Clinic,Wound [None] - 3-5 Days Additional Instructions: Recommend follow-up with wound clinic for lymphedema and to facilitate wound healing.
== END 2019-02-07 09:34 | disposition home or self-care (01) ==
LOC: ED 09:25
PROVIDERS: Emergency Provider Emergency Medicine; Family Provider Family Medicine; PCP Family Medicine
DX: L30.9 Dermatitis, unspecified (principal); I87.8 Other specified disorders of veins; I89.0 Lymphedema, not elsewhere classified; I87.2 Venous insufficiency (chronic) (peripheral); E78.5 Hyperlipidemia, unspecified; I10 Essential (primary) hypertension; N40.0 Benign prostatic hyperplasia without lower urinary tract symptoms; Z86.73 Personal history of transient ischemic attack (TIA), and cerebral infarction without residual deficits; Z86.711 Personal history of pulmonary embolism; Z86.718 Personal history of other venous thrombosis and embolism
CPT/HCPCS: 99282

== ENCOUNTER 2019-02-14 08:53 | Outpatient (CLI) | payer OTHER, SELFPAY ==
[2019-02-14 09:11] VITALS: BP 134/88; PULSE 76; RESP 16; O2SAT 97; BMI 41.9
[2019-02-14 11:32] VITALS: BP 127/81; PULSE 67; RESP 18; TEMP 36.6; O2SAT 100; BMI 41.9
[2019-02-14 11:39] LABS: Anion Gap 7 (5-15); BUN 14 mg/dL (7-18); BUN/Creat Ratio 18.6 RATIO (10-20); Calcium,Total 8.8 mg/dL (8.5-10.1); Chloride 106 mmol/L (98-107); Creatinine, Serum 0.75 mg/dL (0.70-1.30); EST Glomerular Filtration Rate 112 mL/min (>60); Est Glom Filt Rate - Afr Amer 135 mL/min (>60); Estimated Creatinine Clearance 93.34 ml/min; Glucose 90 mg/dL (74-106); Potassium 3.8 mmol/L (3.5-5.1); Sodium Level 141 mmol/L (136-145)
[2019-02-14 14:35] VITALS: BP 126/75; PULSE 75; RESP 18; TEMP 36.5; O2SAT 99
[2019-02-14 20:29] VITALS: BP 120/86; PULSE 84; RESP 16; TEMP 36.9; O2SAT 97
[2019-02-14 22:31] VITALS: BMI 41.9
[2019-02-14] MEDS: 0.9% NaCl IVPB Med Flush (250 mL) 15 ML IV (23:01)
[2019-02-14] MEDS: 0.9% NaCl PICC Flush IV (23:01)
== END 2019-02-14 23:06 | disposition home or self-care (01) ==
LOC: RAD 12:14 → MEDOUTP 13:25 → MS3 20:03
PROVIDERS: Family Provider Family Medicine; PCP Family Medicine; Referring Provider Family Medicine; Visit Provider Family Medicine
DX: Z45.2 Encounter for adjustment and management of vascular access device (principal); L97.822 Non-pressure chronic ulcer of other part of left lower leg with fat layer exposed; L03.90 Cellulitis, unspecified
CPT/HCPCS: 96365 ×2; 96366 ×2; 36569; 36592; 80048; J7040; J7050; A4216

== ENCOUNTER 2019-02-15 08:01 | Outpatient (CLI) | payer OTHER, SELFPAY ==
[2019-02-14 11:32] VITALS: BMI 41.9
[2019-02-15 08:31] VITALS: BP 125/75; PULSE 83; RESP 16; TEMP 36.4; O2SAT 96; BMI 41.9
[2019-02-15 19:54] VITALS: BP 138/97; PULSE 77; RESP 18; TEMP 36.6; O2SAT 100
[2019-02-15] MEDS: 0.9% NaCl PICC Flush IV (20:00)
--- NOTE | 2019-02-15 23:02 | NURSING ---
pt tolerated vanco infusion. picc line flushed. steam conditioner operator called to wheel pt down.
== END 2019-02-15 23:06 | disposition home or self-care (01) ==
LOC: MEDOUTP 08:02 → MS3 19:44
PROVIDERS: Family Provider Family Medicine; PCP Family Medicine; Referring Provider Family Medicine; Visit Provider Family Medicine
DX: Z45.2 Encounter for adjustment and management of vascular access device (principal); L97.822 Non-pressure chronic ulcer of other part of left lower leg with fat layer exposed; L03.90 Cellulitis, unspecified
CPT/HCPCS: 96365 ×2; 96366 ×3; J7040; J7050; A4216

== ENCOUNTER 2019-02-16 07:55 | Outpatient (CLI) | payer OTHER, SELFPAY ==
[2019-02-15 08:31] VITALS: BMI 41.9
[2019-02-16 08:06] VITALS: BP 129/80; PULSE 80; RESP 16; TEMP 36.6; O2SAT 96; BMI 41.9
[2019-02-16 08:35] LABS: International Normalized Ratio 2.8; Prothrombin Time (Protime)PT. 29.7 SECONDS (11.7-14.9)
[2019-02-16 09:08] LABS: ALB/GLOB Ratio 1.2 RATIO (0.9-2.4); AST(SGOT) 11 U/L (15-37); Alanine Aminotransfer ALT/SGPT 19 U/L (16-61); Albumin, Serum 3.6 g/dL (3.2-5.0); Alkaline Phosphatase 88 U/L (45-117); Anion Gap 6 (5-15); BUN 13 mg/dL (7-18); BUN/Creat Ratio 16.8 RATIO (10-20); Calcium,Total 8.4 mg/dL (8.5-10.1); Chloride 108 mmol/L (98-107); Creatinine, Serum 0.77 mg/dL (0.70-1.30); EST Glomerular Filtration Rate 108 mL/min (>60); Est Glom Filt Rate - Afr Amer 131 mL/min (>60); Estimated Creatinine Clearance 90.91 ml/min; Globulin 2.9 g/dL (2.2-4.2); Glucose 97 mg/dL (74-106); Protein, Total 6.5 g/dL (6.4-8.2); Sodium Level 142 mmol/L (136-145)
[2019-02-16 09:11] LABS: Vancomycin, Trough Level 13.9 ug/mL (5.0-15.0)
[2019-02-16 19:40] VITALS: BP 142/96; PULSE 80; RESP 16; TEMP 36.7; O2SAT 99
== END 2019-02-16 22:35 | disposition home or self-care (01) ==
LOC: MEDOUTP 19:31 → MS3 19:32
PROVIDERS: Family Provider Family Medicine; PCP Family Medicine; Referring Provider Family Medicine; Visit Provider Family Medicine
DX: Z45.2 Encounter for adjustment and management of vascular access device (principal); L97.822 Non-pressure chronic ulcer of other part of left lower leg with fat layer exposed; L03.90 Cellulitis, unspecified
CPT/HCPCS: 96365 ×2; 96366 ×2; 36415; 80053; 80202; 85610; J7040; J7050

== ENCOUNTER 2019-02-17 07:45 | Outpatient (CLI) | payer OTHER, SELFPAY ==
[2019-02-16 08:06] VITALS: BMI 41.9
--- NOTE | 2019-02-17 08:04 | NURSING ---
Pt states he had itchiness, took benadryl last evening at 2300, repeated it this am at 0400, talked to his Dr. Hill this am prior to coming for atb infusion and she said to go ahead and take the antibiotic treatment this am. States lt arm feels swollen and states she is aware of this, and his chronic pain on the left side. Pt has slight flush appearance this am. A& O. Slightly anxious.
[2019-02-17 08:07] VITALS: BP 138/90; PULSE 75; RESP 18; TEMP 36.7; O2SAT 99
--- NOTE | 2019-02-17 08:18 | NURSING ---
Instructed to call with any symptoms such as sob, increased itchiness, hives. Verbalized understanding. call light in reach.
--- NOTE | 2019-02-17 08:31 | NURSING ---
Pt reports he has slight increase of swelling on his left side, only on the left side, the side that was affected by CVA, states everything gets accentuated on that side, no actual edema noted, pt denies sob, states he is okay to continue infusion at this point. Dr Patricia figueroa.
[2019-02-17 09:11] VITALS: BP 146/91; PULSE 76; RESP 18; TEMP 37; O2SAT 97
--- NOTE | 2019-02-17 09:14 | NURSING ---
[id number] Dr Garcia called nurse, nurse reported to her that pt c/o increased edema sensation now in rt foot and moving up, also in low abd, pt does not appear to be in distress, denies sob. Dr. Garcia ordered to discontinue the infusion, no infusion tonight or tomorrow, follow up with her on Tuesday at the office. She will call him this afternoon at home. Pt was informed about the orders and verbalized understanding.
== END 2019-02-17 09:10 | disposition home or self-care (01) ==
LOC: MEDOUTP 07:47 → MS3 07:48
PROVIDERS: Family Provider Family Medicine; PCP Family Medicine; Referring Provider Family Medicine; Visit Provider Family Medicine
DX: L97.822 Non-pressure chronic ulcer of other part of left lower leg with fat layer exposed (principal); L03.90 Cellulitis, unspecified; Z45.2 Encounter for adjustment and management of vascular access device
CPT/HCPCS: 96365; 96366; J7040

== ENCOUNTER → 2019-02-19 19:51 | Outpatient (CLI) | payer OTHER, SELFPAY ==
[2019-02-14 11:32] VITALS: BMI 41.9
[2019-02-16 08:06] VITALS: BMI 41.9
== END ==
PROVIDERS: Family Provider Family Medicine; PCP Family Medicine; Referring Provider Family Medicine; Visit Provider Family Medicine
DX: Z53.9 Procedure and treatment not carried out, unspecified reason (principal)

== ENCOUNTER → 2019-02-20 14:43 | Outpatient (CLI) | payer OTHER, SELFPAY ==
[2019-02-16 08:06] VITALS: BMI 41.9
== END ==
PROVIDERS: Family Provider Family Medicine; PCP Family Medicine; Visit Provider Family Medicine
DX: Z45.2 Encounter for adjustment and management of vascular access device (principal)

== ENCOUNTER → 2019-07-16 11:12 | Outpatient (CLI) | payer OTHER, SELFPAY ==
--- NOTE | 2019-07-16 11:20 | RAD_ITS ---
STUDY: X-RAY - LEFT SHOULDER REASON FOR EXAM: Male, 64 years old. Pain TECHNIQUE: 4 view(s) of the shoulder. COMPARISON: None. FINDINGS: Narrowed glenohumeral articulation. Normal acromioclavicular joint. Normal acromion. Narrowed subacromial space consistent with rotator cuff tendon tear may be further assessed with MRI. Normal humeral head and visualized proximal humerus. The soft tissue structures are unremarkable. Normal visualized pulmonary apex. RAD/Shoulder min 2 Views IMPRESSION: Degenerative changes. No evidence for acute fracture or dislocation Electronically Signed: Vickey Hector MD at 22:56 EDT , Service support ,
== END ==
PROVIDERS: Family Provider Family Medicine; PCP Family Medicine; Referring Provider Family Medicine; Visit Provider Family Medicine
DX: M25.512 Pain in left shoulder (principal)
CPT/HCPCS: 73030

== ENCOUNTER 2019-07-19 13:00 | Outpatient (RCR) | payer OTHER, SELFPAY ==
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
--- NOTE | 2019-05-10 12:36 | HP.PTREVAL ---
Patricia Garcia, DO, It has been my pleasure to treat ESTEBAN URBINA over the last 10 visits for LEFT SIDE SPASTICITY S/P STROKE. Please see the progress note below for an update on the physical therapy plan of care! Subjective: PATIENT REPORTS HIS PAIN IS NOT WORSE AND HIS MOBILITY IS A LITTLE BETTER SINCE STARTING IN THE POOL. HE LIKES THE POOL. HE FINDS THE POOL CHALLENGING. STATES HE IS DOING HIS HEP AND FEELS BENEFIT FROM THAT WELL. Objective/Function: UPON EXAM TODAY THERE ARE NO SIGNIFICANT CHANGES COMPARED TO INITIAL EVAL HOWEVER HE IS TOLERATING PRE AND HOME EX'S THAT WILL HOPEFULLY SHOW MORE IMPROVEMENT WITH TIME. [facility]URTHER PROGR[facility] AND HELP TO SUCCESSFULLY TRANSITION TO AN INDEP POOL PROGRAM AT A FACILITY OF HIS CHOICE. Plan Plan: CONTINUE AQUATIC THERAPY PER POC 2 TIMES A WEEK X 5 MORE WEEKS. Goals Goal 1:: DECREASE C/O LLE PAIN AND SPASTICITY Goal Time Frame: 4-6 Weeks Goal Progress: Not Progressing Goal 2:: IMPROVE PRONLONGED SITTING AND STANDING FUNCTION Goal Time Frame: 4-6 Weeks Goal Progress: Progressing Goal 3:: INDEP HEP Goal Time Frame: 4-6 Weeks Goal Progress: Progressing Anticipated Interventions Patient/Client Instruction: Educate patient on: Condition, Plan of Care, Risk Factors, Benefits of Fitness Program For the Purpose of:: To improve self management Therapeutic Exercise to Include: Strength training, Balance training, Coordination, Body mechanics, Postural training, Flexibilty training, Gait and locomotor training, In an aquatic setting, Dynamic Lumbar Stabilization For the Purpose of:: To decrease pain, To increase ROM, To improve muscle performance and motor function, To increase tolerance to activity/condition/position, To improve ability of physical actions for home/community/work/leisure, To improve gait and locomotor functions Please do not hesitate to contact me at [phone] by phone or if you have questions or concerns regarding this new plan of care! Sincerely, Zakiya Lopez, PT, Cert MDT
--- NOTE | 2019-05-31 15:35 | HP.OTEVAL ---
Patient's Visit Information ESTEBAN URBINA is a 63 year old M, referred to Occupational Therapy by Patricia Garcia DO, with a diagnosis of CVA. Date of Evaluation: 05/31/19 Occupational Therapist: WILFRIDO House/Alicia, CHT - Subjective Subjective: This 63-year-old male was seen for initial OT eval with dx of CVA hx 2008, with left UE spasticity/contracture. pt states change in temperature increases muscle tightness and pain. pt states he was dx with chronic pain and thematic syndrome the last two years symptoms of pain and tightness has gotten worse. pt states he does not take muscle relaxer or Botox- he is afraid it would weaken him to much. pt retired in 2010 and spends time mtg his symptoms. - Pain left UE 8 Pain Intensity Range: 5, 8 - ROM Shoulder: left 160 Elbow: left 0/140 Forearm: left sup 65 Wrist: left 65/65 ROM Comments: noted flex contracute of left LF/RF with active shoulder/elbow and forearm rotation- arm resting with elbow at 90* pt can straighten digits. - Sensation Sensation Comments: left side limited due to CVA - Movement Muscle Tone: left UE tone with movment Movement Comments: spatic movement-. sandra - Quick DASH-Disab of Arm,Shoulder& Hand Quick DASH Score: 52.2725 - Goals Goal:: pt will demo increase in left UE/hand ROM to use left UE as assistive hand with simulated daily tasks by d/c Goal:: pt will report pain no greater than 3/10 with use of left UE for ADLs and IADLS by d/c - Rehabilitation General Assessment: pt demo mod tone in left wrist/foream and muscle spacticity with enviromental temperature changes that limites pts functioal use of left UE with ADLs and IADLs. Pt would benefit from skilled OT services 1-2x week for 4 weeks to decrease muscle tone/pain and increase functional use of left UE with daily occupations. Rehabilitation Potential: Good - Anticipated Interventions Anticipated Interventions: A/AAROM/PROM, Triggerpoint Release, Desensitization, Sensory Retraining, Modalities, Ergonomic Education, Neuro Reeducation, Sensory Stimulation - Visit Plan Frequency: 1-2x /Week Duration: 4 Weeks TEXT: Thank you for the opportunity to evaluate your patient. For Medicare and Medicare HMO plans, please review the plan of care and approve it. It will need to be FAXED BACK to us at [phone] for Medicare purposes. Please let me know if there are questions or concerns regarding this plan of care. Physician Signature: Date:
--- NOTE | 2019-06-12 13:41 | HP.PTDCSUM_ITS ---
HP - PT D/C Summary It has been my pleasure to treat ESTEBAN URBINA under orders from Patricia Garcia DO, for the diagnosis of LEFT SIDE SPASTICITY S/P STROKE for a total of 18 visit(s). Discharge Date: 06/12/19 Please see the following information for a summary of their discharge status. - Subjective Subjective: PATIENT REPORTS HE KNOWS HIS POOL PROGRAM NOW AND PLANS TO JOIN A MEMBER HERE AT [facility] TO CONTINUE HIS WATER EX'S INDEP'LY. HE REPORTS THIS IS THE CLOSEST PLACE FOR HIM. HE REPORTS HE LIKES THE WATER EX'S. PATIENT REPORTS THERAPY HAS HELPED HIS BALANCE AND HE HASN'T HAD ANY FALLS FOR ABOUT 2 YEARS NOW. - Pain L-side Pain Intensity (Out of 10): 6 - Overall Improvement % Improvement: 30 - Objective Objective/Function: ALL GOALS MET. GAIT, STRENGTH AND ROM MEASURES HAVE NOT SIGNIFICANTLY CHANGED SINCE INITIAL EVAL BUT PATIENT REPORTS SOME IMPROVMENT IN PAIN, HE IS INDEP WITH A POOL EX PROGRAM NOW AND HIS LEFS SCORE HAS IMPROVED FROM 33 TO 38. - Goals Goal 1:: DECREASE C/O LLE PAIN AND SPASTICITY Goal Progress: Goal Met Goal 2:: IMPROVE PRONLONGED SITTING AND STANDING FUNCTION Goal Progress: Goal Met Goal 3:: INDEP HEP Goal Progress: Goal Met - Plan Plan: D/C TO INDEP POOL PROGRAM AT FACILITY OF PATIENTS CHOICE. PATIENT AGREEABLE. - D/C Information If there are questions or concerns regarding this patient's physical therapy, please feel free to call me at [phone]. Thank you for the referral of this patient. Sincerely, Zakiya Lopez, PT, Cert MDT
--- NOTE | 2019-07-19 13:30 | HP.OTDCSUM_ITS ---
HP - OT D/C Summary It has been my pleasure to treat ESTEBAN URBINA under orders from Patricia Garcia DO, for the diagnosis of CVA for a total of 6 visit(s). Please see the following information for a summary of their discharge status. - Goals Patient Goals: Decrease Pain, Decrease Swelling/Stiffness, Use Hand/Wrist/Arm Normally Again, Be More Independent in ADLS, Decrease Sensitivity, Decrease Muscle Tone Goal:: pt will demo increase in left UE/hand ROM to use left UE as assistive hand with simulated daily tasks by d/c Goal:: pt will report pain no greater than 3/10 with use of left UE for ADLs and IADLS by d/c - Plan Plan: cont with mirror therapy. decrease muscle tone - D/C Information Discharge Comments: pt demo good understanding of HEP to cont too improve pts sensation/ROM and function with ADLs and IADls. If there are questions or concerns regarding this patient's occupational therapy, please fell free to call me at [phone]. Thank you for the ref erral of this patient. Sincerely, Laura Mojica, OTR/L, CHT
== END 2019-07-19 19:00 | disposition home or self-care (01) ==
LOC: OT 13:00
PROVIDERS: Family Provider Family Medicine; PCP Family Medicine; Referring Provider Family Medicine; Visit Provider Family Medicine
DX: I69.30 Unspecified sequelae of cerebral infarction (principal)
CPT/HCPCS: 97112; 97113; 97162; 97166; 97168; 97530

== ENCOUNTER → 2019-12-10 16:40 | Outpatient (CLI) | payer OTHER, SELFPAY | PROVIDERS: PCP Family Medicine; Visit Provider Family Medicine | DX: L97.919 Non-pressure chronic ulcer of unspecified part of right lower leg with unspecified severity (principal) | CPT/HCPCS: 87070; 87075; 87077; 87186; 87205 ==

== ENCOUNTER 2020-01-10 14:07 | Outpatient (RCR) | payer OTHER, SELFPAY ==
[2020-01-10 14:30] LABS: Prothrombin Time Fingerstick 22.7 SEC (11.9-14.4)
== END 2020-02-07 18:00 | disposition home or self-care (01) ==
LOC: MTLAB 14:07
PROVIDERS: PCP Family Medicine; Referring Provider Family Medicine; Visit Provider Family Medicine
DX: Z86.718 Personal history of other venous thrombosis and embolism (principal); Z79.01 Long term (current) use of anticoagulants
CPT/HCPCS: 36416; 85610

== ENCOUNTER → 2020-03-26 11:57 | Outpatient (CLI) | payer OTHER, SELFPAY ==
[2020-03-26 15:50] LABS: Hematocrit 47.5 % (40-54); Hemoglobin 15.1 g/dL (13.0-16.5); Mean Corp Hgb Conc 31.8 g/dL (32-36); Mean Corpuscular Hgb 32.6 pg (27.0-32.0); Mean Corpuscular Volume 102.6 fL (80-94); Mean Platelet Vol. 9.4 fl (6.2-12.0); Platelet Count 237 K/mm3 (150-450); RBC Distribution Width CV 14.3 % (11.6-14.6); RBC Distribution Width SD 53.5 fl (35.1-43.9); Red Blood Count 4.63 M/mm3 (4.6-6.2); White Blood Count 3.8 K/mm3 (4.4-11.0)
[2020-03-26 16:02] LABS: ALB/GLOB Ratio 1.1 RATIO (0.9-2.4); AST(SGOT) 13 U/L (15-37); Alanine Aminotransfer ALT/SGPT 25 U/L (16-61); Alkaline Phosphatase 113 U/L (45-117); Anion Gap 6 (5-15); BUN 16 mg/dL (7-18); BUN/Creat Ratio 20.8 RATIO (10-20); Chloride 102 mmol/L (98-107); Creatinine, Serum 0.77 mg/dL (0.70-1.30); EST Glomerular Filtration Rate 108 mL/min (>60); Est Glom Filt Rate - Afr Amer 131 mL/min (>60); Globulin 3.7 g/dL (2.2-4.2); Glucose 90 mg/dL (74-106); Protein, Total 7.7 g/dL (6.4-8.2); Sodium Level 139 mmol/L (136-145)
[2020-03-26 16:20] LABS: Phenytoin (Dilantin) Level 15.4 mL (10.0-20.0)
== END ==
PROVIDERS: PCP Family Medicine; Referring Provider Psychiatry & Neurology Neurology; Visit Provider Psychiatry & Neurology Neurology
DX: G40.909 Epilepsy, unspecified, not intractable, without status epilepticus (principal)
CPT/HCPCS: 36415; 80053; 80185; 82542; 85027

== ENCOUNTER → 2020-05-12 13:03 | Outpatient (CLI) | payer OTHER, SELFPAY ==
--- NOTE | 2020-05-12 13:10 | VDLE_ITS ---
Reason For Study: Pain Procedure LEFT Exam performed in department. GSV is normal. A preliminary report was called and/or faxed CFV, FV, Pop V and T/P trunk are partially to Malys. compressible with bright intraluminal echoes. Reflux is noted in the POP V. Normal venous flow noted in the left CFV, FV and PopV. PTV is compressible. LT PerV is compressible. Interpretation Summary Chronic venous changes are noted in the left common femoral vein, femoral vein, popliteal vein, and tibio-peroneal trunk, which are partially compressible and demonstrate bright intraluminal echogenicity. The left posterior tibial vein and peroneal vein are patent and compressible. Valvular reflux is noted in the left popliteal vein. The left great saphenous vein appears patent and compressible segmentally. Ordering Physician: Patricia Garcia Referring Physician: Patricia Garcia Performed By: Kasia Oro RVT and Student
[2020-05-12 14:12] LABS: International Normalized Ratio 2.9; Prothrombin Time (Protime)PT. 29.8 SECONDS (11.7-14.9)
== END ==
PROVIDERS: PCP Family Medicine; Referring Provider Family Medicine; Visit Provider Family Medicine
DX: M79.605 Pain in left leg (principal); Z86.718 Personal history of other venous thrombosis and embolism; Z79.01 Long term (current) use of anticoagulants
CPT/HCPCS: 36415; 85610; 93971

== ENCOUNTER → 2020-06-02 15:06 | Outpatient (CLI) | payer OTHER, SELFPAY ==
[2020-06-02 17:57] LABS: Absolute Lymphocyte Count 1.47 X10^3/uL (0.83-4.51); Absolute Neutrophil Count 3.2 X10^3/uL (2.0-7.7); Basophil# 0.04 X10^3/uL; Basophil% 0.7 % (0-1); Eosinophil# 0.14 X10^3/uL; Eosinophils% 2.5 % (0-5); Hematocrit 46.2 % (40-54); Hemoglobin 14.5 g/dL (13.0-16.5); Lymphocyte # 1.47 X10^3/ul (4.0); Lymphocyte % 26.7 % (19-41); Mean Corp Hgb Conc 31.4 g/dL (32-36); Mean Corpuscular Hgb 31.7 pg (27.0-32.0); Mean Corpuscular Volume 101.1 fL (80-94); Mean Platelet Vol. 9.5 fl (6.2-12.0); Monocyte# 0.67 X10^3/uL; Monocyte% 12.2 % (0-10); NRBC Flagged by Analyzer 0 % (0-5); Neutrophil # 3.19 X10^3/uL (2.7-7.7); Neutrophil % 57.9 % (47-70); Platelet Count 298 K/mm3 (150-450); RBC Distribution Width CV 13.5 % (11.6-14.6); RBC Distribution Width SD 50.2 fl (35.1-43.9); Red Blood Count 4.57 M/mm3 (4.6-6.2); White Blood Count 5.5 K/mm3 (4.4-11.0)
[2020-06-02 17:58] LABS: Prothrombin Time (Protime)PT. 46.6 SECONDS (11.7-14.9)
== END ==
LOC: LAB.FUTURE 15:08 → MTLAB 15:57
PROVIDERS: PCP Family Medicine; Referring Provider Psychiatry & Neurology Neurology; Visit Provider Psychiatry & Neurology Neurology
DX: G40.909 Epilepsy, unspecified, not intractable, without status epilepticus (principal); Z79.01 Long term (current) use of anticoagulants; Z86.718 Personal history of other venous thrombosis and embolism
CPT/HCPCS: 36415; 85025; 85610

== ENCOUNTER → 2020-06-05 14:07 | Outpatient (CLI) | payer OTHER, SELFPAY | PROVIDERS: PCP Family Medicine; Visit Provider Family Medicine | DX: I87.2 Venous insufficiency (chronic) (peripheral) (principal); L97.929 Non-pressure chronic ulcer of unspecified part of left lower leg with unspecified severity; L03.116 Cellulitis of left lower limb; L02.416 Cutaneous abscess of left lower limb | CPT/HCPCS: 87070; 87075; 87077; 87186; 87205 ==

== ENCOUNTER → 2020-07-31 15:12 | Outpatient (CLI) | payer OTHER, SELFPAY | PROVIDERS: PCP Family Medicine; Visit Provider Family Medicine | DX: L03.116 Cellulitis of left lower limb (principal); S81.802A Unspecified open wound, left lower leg, initial encounter | CPT/HCPCS: 87070; 87075; 87077; 87186; 87205 ==

== ENCOUNTER 2020-12-30 08:59 | Emergency (ER) | payer OTHER, SELFPAY ==
[2020-12-30 09:00] VITALS: BP 139/84; PULSE 75; RESP 16; TEMP 35.9; O2SAT 99; BMI 43.5
--- NOTE | 2020-12-30 09:37 | RAD_ITS ---
STUDY: X-RAY - UNILATERAL RIBS ( LEFT ) WITH CHEST REASON FOR EXAM: Male, 65 years old. fall TECHNIQUE - RIBS: 5 view(s) of the ribs. TECHNIQUE - CHEST: Single PA view of the chest. COMPARISON: 07/26/2013. FINDINGS: Cardiac silhouette unremarkable. Pulmonary vascularity unremarkable. Aorta unremarkable. No focal patchy airspace opacities. No pleural effusions. IVC filter. Osseous structures intact. No pneumothorax. RAD/Ribs Uni Min 3V w/PA Chest IMPRESSION: No acute cardiopulmonary findings Ribs intact Electronically Signed: Wei Gaxiola DO at 11:39 EDT Tel , Service support ,
--- NOTE | 2020-12-30 09:37 | RAD_ITS ---
STUDY: X-RAY - LEFT KNEE REASON FOR EXAM: Male, 65 years old. Fall. TECHNIQUE: 3 view(s) of the knee. COMPARISON: 12/30/2015. FINDINGS: No acute fracture, dislocation or osseous destruction. Moderate medial compartment joint space narrowing. Lateral compartment joint space and preserved. Mild patellofemoral joint spacing preserved. Mild soft tissue swelling. RAD/Knee 3 Views IMPRESSION: Left knee intact Moderate medial compartment joint space narrowing Mild soft tissue swelling Electronically Signed: Wei Gaxiola DO at 11:41 EDT Tel , Service support ,
[2020-12-30] MEDS: oxyCODONE 5 MG Tablet PO (09:46)
[2020-12-30 10:11] LABS: Prothrombin Time (Protime)PT. 22.6 SECONDS (11.7-14.9)
--- NOTE | 2020-12-30 10:18 | RAD_ITS ---
STUDY: X-RAY - LEFT ANKLE REASON FOR EXAM: Male, 65 years old. Fall TECHNIQUE: 3 view(s) of the ankle. COMPARISON: None. FINDINGS: No acute fracture, dislocation or osseous destruction. Osteopenia. Mild/moderate tibiotalar joint arthrosis predominating medially. Mild subtalar arthrosis. Dorsal spurring. Soft tissue swelling. Vascular calcifications. RAD/Ankle min 3 Views IMPRESSION: Left ankle acutely intact Degenerative changes, as above Soft tissue swelling Electronically Signed: Wei Gaxiola DO at 11:17 EDT Tel , Service support ,
--- NOTE | 2020-12-30 10:20 | RAD_ITS ---
STUDY: X-RAY - PELVIS AND LEFT HIP REASON FOR EXAM: Male, 65 years old. Fall. TECHNIQUE: 3 views of the pelvis and hip. COMPARISON: None. FINDINGS: No acute fracture, dislocation or osseous destruction. Moderate right hip osteoarthritis. Minimal left hip osteoarthritis. Normal pubic symphysis. Minimal sacroiliac joint arthrosis. Moderate lumbar spine arthrosis. No significant soft tissue swelling. Vascular calcifications. RAD/HIP, UNI W/ Pelvis 2-3 Views IMPRESSION: Left hip and pelvis acutely intact Electronically Signed: Wei Gaxiola DO at 11:21 EDT Tel , Service support ,
[2020-12-30 11:42] VITALS: BP 125/82; PULSE 73; RESP 16; TEMP 36.7; O2SAT 100
[2020-12-30 11:49] LABS: Bacteria 0 SEEN /hpf (None Seen); Mucous, Urine 0 SEEN /hpf (<or=2+); White Blood Cells 0 SEEN /hpf (0-5)
[2020-12-30 11:57] LABS: Color, Urine Straw (Yellow); Glucose, Dipstick Normal (Normal); Ketone-Dipstick Negative (Negative); Leukocyte Esterase-Dipstick Negative /ul (Negative); Nitrite-Dipstick Negative (Negative); Occult Blood-Urine 25 /ul (Negative); Protein-Dipstick Negative (Negative); Urine Bilirubin Dipstick Negative (Negative); Urine Clarity Clear (Clear); Urine Urobilinogen Normal (Normal)
--- NOTE | 2020-12-30 12:04 | ED.VIS.FALL ---
History of Present Illness Chief Complaint: Fall Narrative: Patient presenting for evaluation secondary to a fall. Patient has an underlying history of a stroke, he has baseline left-sided numbness and weakness that is residual from that stroke. He is anticoagulated with Coumadin. Patient reports that about a week ago he suffered a mechanical fall. He states that he fell on his left side denies hitting his head or loss of consciousness. Patient states that since then he has had increase in his generalized pain over his left side and feels that maybe there is some increased swelling. Denies any shortness of breath. He denies any hemoptysis. Patient states that he is still able to ambulate although there is with some more difficulty. Patient's INR is typically run therapeutic. Patient also states that he has been having some migratory flank pain but denies any dysuria. Past Medical History - Allergies and Home Meds Allergies/Adverse Reactions: Allergies ciprofloxacin [From Cipro] Adverse Reaction (Verified 12/30/20 09:04) PAIN IN FEET ciprofloxacin HCl [From Cipro] Adverse Reaction (Verified 12/30/20 09:04) PAIN IN FEET citalopram Adverse Reaction (Verified 12/30/20 09:04) SUICIDAL THOUGHTS SUICIDAL THOUGHTS gabapentin [From Neurontin] Adverse Reaction (Verified 12/30/20 09:04) EFFECTED VISION AND HEARING FOGGY, IT EFFECTED MY VISION AND MY HEARING hydrochlorothiazide Adverse Reaction (Verified 12/30/20 09:04) DIZZINESS dizziness levetiracetam [From Keppra] Adverse Reaction (Verified 12/30/20 09:04) Other STATINS Adverse Reaction (Uncoded 12/30/20 09:04) SEVERE MUSCLE PAINS SEVERE MUSCLE PAINS Primary Care Physician: Patricia Garcia DO [Primary Care Provider] - Prior records reviewed: Yes Past Medical History: - - Prior history of stroke Surgical History: no surgical history, - - IVC Filter Smoking Status: Never smoker Alcohol: None Drugs: None - Family History Maternal Family History: Reports: Heart Disease, Hypertension Paternal Family History: Reports: Cancer - Father with colon CA. Review of Systems All systems negative except as indicated General: Denies: Chills, Fever, Sweats Eyes: Denies: Visual changes - bilaterally, Diplopia ENT: Denies: Rhinorrhea, Sore throat Cardiovascular: Reports: Chest pain Respiratory: Denies: Dyspnea, Cough, Dyspnea on exertion Gastrointestinal: Denies: Abdominal pain, Nausea, Vomiting, Diarrhea, Melena, Hematochezia Genitourinary: Denies: Dysuria, Hematuria, Frequency Musculoskeletal: Reports: Extremity Pain Skin: Denies: Rash, Wounds Neurological: Denies: Headache, Weakness, Numbness Physical Exam Vital Signs/Narrative: Vital Signs Temp Pulse Resp BP Pulse Ox 12/30/20 11:42 98.1 F 73 16 125/82 H 100 12/30/20 09:00 96.6 F L 75 16 139/84 H 99 Inital Vital Signs reviewed: Yes General: Well nourished, Well developed, Obese Head: Normocephalic, Atraumatic Eyes: Perrl, EOMI Neck: Nontender, Full ROM. Negative for: Spinal Tenderness, Paraspinal Tenderness Cardiovascular: Regular rate, Regular rhythm, No murmurs, - - 2+ radial pulses bilaterally symmetric Respiratory: No distress, CTA bilaterally, Chest tenderness - Minimal tenderness over the patient's left lateral chest no evidence of crepitus step-off deformity or ecchymosis Abdomen: Soft, Nontender, Nondistended, Normal bowel sounds Extremeties: Extremities are atraumatic on exam, no evidence of deformity or ecchymosis. Normal range of motion. The baseline weakness is noted to the left side that is unchanged. Baseline decreased sensation is also noted. Skin: No rash Neurological: Alert, Oriented x3 Psychological: Normal affect Diagnostic/Tx/Re-eval Clinical Impression(s) from Imaging Studies Knee X-Ray 12/30/20 09:37 IMPRESSION: Left knee intact Moderate medial compartment joint space narrowing Mild soft tissue swelling Electronically Signed: Wei Gaxiola DO at 11:41 EDT Tel , Service support , Ribs w/Chest X-Ray 12/30/20 09:37 IMPRESSION: No acute cardiopulmonary findings Ribs intact Electronically Signed: Wei Gaxiola DO at 11:39 EDT Tel , Service support , Ankle X-Ray 12/30/20 10:18 IMPRESSION: Left ankle acutely intact Degenerative changes, as above Soft tissue swelling Electronically Signed: Wei Gaxiola DO at 11:17 EDT Tel , Service support , Hip/Pelvis X-Ray 12/30/20 10:20 IMPRESSION: Left hip and pelvis acutely intact Electronically Signed: Wei Gaxiola DO at 11:21 EDT Tel , Service support , Laboratory Data 12/30/20 12/30/20 09:50 11:39 PT 22.6 H INR 2.0 Urine Color Straw Urine Clarity Clear Urine pH 7.0 Ur Specific [place] 1.010 Urine Protein Negative Urine Glucose (UA) Normal Urine Ketones Negative Urine Occult Blood 25 H Urine Nitrite Negative Urine Bilirubin Negative Urine Urobilinogen Normal Ur Leukocyte Esterase Negative Urine RBC 0-5 SEEN Urine WBC 0 SEEN Ur Squamous Epith Cells 0-5 SEEN Urine Bacteria 0 SEEN Urine Mucus 0 SEEN - Medical Decision Making Patient presented secondary to a subacute fall. Urinalysis was obtained was found to be negative for any evidence of infection. INR was found to be therapeutic. Radiographs were obtained of the patient as he has neuropathy and decreased sensation. Rib series per my personal review as well as radiology is negative. Hip and ankle films by my personal review as well as radiology show no evidence of bony pathology. Patient at this point I believe just has a exacerbation of his underlying neuropathy from his stroke secondary to his fall. I do not believe that he requires admission or further observation. Patient was given reassurance and he was discharged in stable condition. ED Disposition - Plan for ED Patient: Disposition: Home or Assisted Living Diagnosis: Fall, Neuropathy Instructions: ED Mechanical Fall Referrals: Patricia Garcia DO [Primary Care Provider] - As Needed
[2020-12-30 12:11] LABS: Red Blood Cells-Urine 0-5 SEEN /hpf (0-5); Squamous Epithelial Cells - UA 0-5 SEEN /hpf (0-5)
== END 2020-12-30 12:59 | disposition home or self-care (01) ==
PROVIDERS: Emergency Provider Emergency Medicine; PCP Family Medicine
DX: G62.9 Polyneuropathy, unspecified (principal); M19.072 Primary osteoarthritis, left ankle and foot; I69.354 Hemiplegia and hemiparesis following cerebral infarction affecting left non-dominant side; Z79.01 Long term (current) use of anticoagulants; Z82.49 Family history of ischemic heart disease and other diseases of the circulatory system; Z88.1 Allergy status to other antibiotic agents; Z88.8 Allergy status to other drugs, medicaments and biological substances; W18.30XA Fall on same level, unspecified, initial encounter; Y93.9 Activity, unspecified; Y92.89 Other specified places as the place of occurrence of the external cause; Y99.8 Other external cause status
CPT/HCPCS: 71101; 73502; 73562; 73610; 81001; 85610; 99283; A4216

== ENCOUNTER 2021-01-01 11:00 | Emergency (ER) | payer OTHER, SELFPAY ==
[2021-01-01 11:02] VITALS: BP 164/94; PULSE 73; PULSE 78; RESP 16; TEMP 36.6; O2SAT 100; BMI 43.5
[2021-01-01] MEDS: diazePAM 5 MG Tablet PO (11:36)
[2021-01-01 12:04] LABS: Anion Gap 3 (5-15); BUN 13 mg/dL (7-18); BUN/Creat Ratio 16.6 RATIO (10-20); Chloride 104 mmol/L (98-107); Creatinine, Serum 0.78 mg/dL (0.70-1.30); EST Glomerular Filtration Rate 106 mL/min (>60); Est Glom Filt Rate - Afr Amer 129 mL/min (>60); Estimated Creatinine Clearance 87.48 ml/min; Glucose 92 mg/dL (74-106); Potassium 4.3 mmol/L (3.5-5.1); Sodium Level 137 mmol/L (136-145)
--- NOTE | 2021-01-01 12:33 | ED.DCSUM_ITS ---
History of Present Illness Chief Complaint: Back Informant: Patient Narrative: 65-year-old male with history of prior stroke with left-sided deficits tells me that he is sensitive to electromagnetic waves. States he has been this way for years. He states that he was recently seen for a fall and had negative x-rays. He tells me that he has significant spasm of the left hand and low back. He also notes some spasm in his leg. He tells me that he has had this problem for years. He has seen neurology and primary care and pain management. He has tried numerous things with no relief. He thinks that today is mostly related to his neighbors [place] lights hanging up. Patient states that today he hurts worse than normal. He did not contact his doctors. Last visit with neurology was this year. - Past Medical History (1) BPH (benign prostatic hypertrophy) Status: Chronic (2) Chronic L sided weakness Status: Chronic (3) History of CVA (cerebrovascular accident) Status: Chronic (4) History of DVT (deep vein thrombosis) Status: Chronic (5) History of pulmonary embolism Status: Chronic (6) Hyperlipidemia Status: Chronic (7) Hypertension Status: Chronic (8) Lymphedema Status: Chronic (9) Seizure disorder Status: Chronic Past Medical History - Allergies and Home Meds Allergies/Adverse Reactions: Allergies ciprofloxacin [From Cipro] Adverse Reaction (Verified 01/01/21 11:01) PAIN IN FEET ciprofloxacin HCl [From Cipro] Adverse Reaction (Verified 01/01/21 11:01) PAIN IN FEET citalopram Adverse Reaction (Verified 01/01/21 11:01) SUICIDAL THOUGHTS SUICIDAL THOUGHTS gabapentin [From Neurontin] Adverse Reaction (Verified 01/01/21 11:01) EFFECTED VISION AND HEARING FOGGY, IT EFFECTED MY VISION AND MY HEARING hydrochlorothiazide Adverse Reaction (Verified 01/01/21 11:01) DIZZINESS dizziness levetiracetam [From Keppra] Adverse Reaction (Verified 01/01/21 11:01) Other STATINS Adverse Reaction (Uncoded 12/30/20 09:04) SEVERE MUSCLE PAINS SEVERE MUSCLE PAINS Primary Care Physician: Patricia Garcia DO [Primary Care Provider] - Surgical History: no surgical history, - - IVC Filter Lives: Alone Smoking Status: Never smoker Drugs: None - Family History Maternal Family History: Reports: Heart Disease, Hypertension Paternal Family History: Reports: Cancer - Father with colon CA. Review of Systems General: Denies: Chills, Fever, Sweats Eyes: Denies: Visual changes - bilaterally, Diplopia ENT: Denies: Rhinorrhea, Sore throat Cardiovascular: Denies: Chest pain, Palpitations Respiratory: Denies: Dyspnea, Cough, Dyspnea on exertion Gastrointestinal: Denies: Abdominal pain, Nausea, Vomiting, Diarrhea, Melena, He matochezia Genitourinary: Denies: Dysuria, Hematuria, Frequency Musculoskeletal: Reports: Back pain, Extremity Pain Skin: Denies: Rash, Wounds Neurological: Reports: - - Muscle spasms. Denies: Headache, Weakness, Numbness Physical Exam Vital Signs/Narrative: Vital Signs Temp Pulse Resp BP Pulse Ox 01/01/21 11:02 97.9 F 73 16 164/94 H 100 Inital Vital Signs reviewed: Yes General: Well nourished, Well developed, No Acute Distress Head: Normocephalic, Atraumatic Eyes: Perrl, EOMI ENT: Moist mucous membranes, No rhinorrhea Neck: Supple, Nontender Cardiovascular: Regular rate, Regular rhythm, No murmurs Respiratory: No distress, CTA bilaterally, Chest nontender Abdomen: Soft, Nontender, Nondistended, Normal bowel sounds Back: Nontender, Normal Inspection Extremities: - - Patient has his left hand in a fist but I am able to straighten them. Skin: Normal color, No rash Neurological: Alert, Oriented x3, Cranial nerves II-XII grossly intact, Normal Strength - From baseline of chronic weakness Psychological: Normal affect, Normal Mood Diagnostic/Tx/Re-eval Laboratory Last Values Sodium 137 mmol/L (136-145) 01/01/21 11:45 Potassium 4.3 mmol/L (3.5-5.1) 01/01/21 11:45 Chloride 104 mmol/L (98-107) 01/01/21 11:45 Carbon Dioxide 30.0 mmol/L (21.0-32.0) 01/01/21 11:45 Anion Gap 3 (5-15) L 01/01/21 11:45 BUN 13 mg/dL (7-18) 01/01/21 11:45 Creatinine 0.78 mg/dL (0.70-1.30) 01/01/21 11:45 Estim Creat Clear Calc 87.48 ml/min 01/01/21 11:45 Est GFR (MDRD) Af Amer 129 mL/min (>60) 01/01/21 11:45 Est GFR (MDRD) Non-Af 106 mL/min (>60) 01/01/21 11:45 BUN/Creatinine Ratio 16.6 RATIO (10-20) 01/01/21 11:45 Glucose 92 mg/dL (74-106) 01/01/21 11:45 Calcium 9.0 mg/dL (8.5-10.1) 01/01/21 11:45 - Medical Decision Making Electrolytes are normal. I reviewed his x-rays that were negative. Patient seems to have muscle spasms am not sure about this electromagnetic wave sensitivity that he has. I can write for some Valium and may be some few [place]. I recommend follow-up with his doctors but the current time I do not see anything emergent. ED Disposition - Plan for ED Patient: Disposition: Home or Assisted Living Diagnosis: Muscle spasm Instructions: ED Back Spasm, No Trauma Prescriptions: Hydrocodone Bitart/Apap 5-325 [[place] 5MG-325MG] 1 tablet PO Q6H PRN PRN 3 Days #10 tab PRN Reason: Pain Transmission Status: Received by [id number] Diazepam [Valium] 5 mg PO Q8 PRN #15 tablet PRN Reason: Muscle Spasm Transmission Status: Received by [id number] Referrals: Patricia Garcia DO [Primary Care Provider] - As soon as possible
== END 2021-01-01 12:56 | disposition home or self-care (01) ==
PROVIDERS: Emergency Provider Emergency Medicine; PCP Family Medicine
DX: M62.838 Other muscle spasm (principal); E78.5 Hyperlipidemia, unspecified; G40.909 Epilepsy, unspecified, not intractable, without status epilepticus; I10 Essential (primary) hypertension; N40.0 Benign prostatic hyperplasia without lower urinary tract symptoms; Z82.49 Family history of ischemic heart disease and other diseases of the circulatory system; Z86.711 Personal history of pulmonary embolism; Z86.718 Personal history of other venous thrombosis and embolism; Z88.1 Allergy status to other antibiotic agents; Z88.8 Allergy status to other drugs, medicaments and biological substances; I69.954 Hemiplegia and hemiparesis following unspecified cerebrovascular disease affecting left non-dominant side
CPT/HCPCS: 80048; 99284

== ENCOUNTER → 2021-03-02 12:49 | Outpatient (CLI) | payer OTHER, SELFPAY ==
--- NOTE | 2021-03-02 12:52 | EKG12_ITS ---
Test Reason : MEDS Blood Pressure : / mmHG Vent. Rate : 079 BPM Atrial Rate : 079 BPM P-R Int : 180 ms QRS Dur : 118 ms QT Int : 372 ms P-R-T Axes : 056 047 060 degrees QTc Int : 426 ms Normal sinus rhythm Normal ECG Confirmed by SAVITA ARNDHAWA, ALLYSON ([id number]), film editor supervisor MICAELA DÍAZ ([id number]) on 03/03/2021 9:04:42 AM Referred By: Heather Kraus Confirmed By:ALLYSON BARNEY MD
== END ==
PROVIDERS: PCP Family Medicine; Referring Provider Family Medicine Hospice and Palliative Medicine; Visit Provider Family Medicine Hospice and Palliative Medicine
DX: Z79.891 Long term (current) use of opiate analgesic (principal)
CPT/HCPCS: 93005

== ENCOUNTER → 2021-07-10 14:23 | Outpatient (CLI) | payer OTHER, SELFPAY ==
[2021-07-10 17:47] LABS: Absolute Lymphocyte Count 1.38 X10^3/uL (0.83-4.51); Absolute Neutrophil Count 2.9 X10^3/uL (2.0-7.7); Basophil# 0.04 X10^3/uL; Basophil% 0.8 % (0-1); Hematocrit 46.8 % (40-54); Lymphocyte # 1.38 X10^3/ul (0.83-4.51); Lymphocyte % 27.7 % (19-41); Mean Corp Hgb Conc 32.1 g/dL (32-36); Mean Corpuscular Volume 103.1 fL (80-94); Mean Platelet Vol. 9.8 fl (6.2-12.0); Monocyte# 0.55 X10^3/uL; NRBC Flagged by Analyzer 0 % (0-5); Neutrophil # 2.91 X10^3/uL (2.7-7.7); Neutrophil % 58.3 % (47-70); Platelet Count 260 K/mm3 (150-450); RBC Distribution Width CV 13.6 % (11.6-14.6); RBC Distribution Width SD 52.4 fl (35.1-43.9); Red Blood Count 4.54 M/mm3 (4.6-6.2)
[2021-07-10 18:12] LABS: Phenytoin (Dilantin) Level 12.3 mL (10.0-20.0)
[2021-07-10 18:15] LABS: AST(SGOT) 10 U/L (15-37); Alanine Aminotransfer ALT/SGPT 18 U/L (16-61); Albumin, Serum 3.9 g/dL (3.2-5.0); Alkaline Phosphatase 118 U/L (45-117); Bilirubin, Direct 0.08 mg/dL (0.00-0.30); Globulin 3.4 g/dL (2.2-4.2); Protein, Total 7.3 g/dL (6.4-8.2)
== END ==
PROVIDERS: PCP Family Medicine; Referring Provider Psychiatry & Neurology Neurology; Visit Provider Psychiatry & Neurology Neurology
DX: G40.909 Epilepsy, unspecified, not intractable, without status epilepticus (principal)
CPT/HCPCS: 36415; 80076; 80185; 85025

== ENCOUNTER 2022-01-01 09:03 | Outpatient (RCR) | payer MEDICAID, SELFPAY ==
[2022-01-01 09:59] VITALS: BP 124/78; PULSE 62; RESP 18; TEMP 36.6
--- NOTE | 2022-01-01 13:59 | PCM.WC.HP ---
History of Present Illness Date of Service: 01/01/22 Chief Complaint: venous ulcers of bilateral lower extremities History of Wound: Mauricio is a 66 yo gentleman who is here today for evaluation of ulcers to to his bilateral lower legs. He has been treated multiple times in the past at the wound healing center for similar ulcers. The left LE ulcer started after he developed increased swelling and blisters of left leg in September and the right leg started sometime at the end of October He was prescribed Doxycycline in September, October, and November. He denies improvement and is having swelling to left his calf and thigh. He has been having swelling to both lower extremities for many years and it has worsened over the last few months. He has clear yellow drainage and redness without odor or warmth. He is anti-coagulated on coumadin. He has been washing with Dial soap and witch ifrah. He had been using Collagen at times and using Calcium Alginate and covering with gauze during October. He was treated with UNNA boot therapy Since November 19, 2021 using calcium alginate over the ulcers under the UNNA boots. He was referred to the wound center for ongoing treatment as his ulcers have not improved in the last few weeks and slough has increased. His ulcers have moderate to heavy drainage. [facility] Home Medications phenytoin sodium extended 200 mg PO BID 08/29/14 [History Last Taken 02/14/19 07:30] lisinopril 10 mg PO BID 08/27/15 [History Last Taken 02/14/19 07:30] omega-3 fatty acids [Fish Oil] 1,000 mg PO DAILY 08/27/15 [History Last Taken 02/14/19 12:00] warfarin [Coumadin ([facility])] 4 mg PO MOWEFR 08/27/15 [History Last Taken 02/14/19 07:30] warfarin [Coumadin ([facility])] 3 mg PO TUTHSA 03/20/17 [History Last Taken 02/13/19] turmeric root extract 100 mg PO DAILY 09/16/17 [History Last Taken 02/14/19 12:00] Clonidine Hcl 1 tab PO BID 02/07/19 [History Last Taken 02/14/19 07:30] furosemide 40 tab PO BREAKFAST 02/07/19 [History Last Taken 02/14/19 07:30] tramadol 1 tab PO Q8H PRN PRN 02/07/19 [History Last Taken 02/14/19 14:00] diazepam 5 mg PO Q8 PRN #15 tablet 01/01/21 [Rx Last Taken Unknown] baclofen 10 mg PO TID PRN 01/01/22 [History Last Taken Unknown] cholecalciferol (vitamin D3) [Vitamin D3] 125 mcg PO DAILY 01/01/22 [History Last Taken Unknown] furosemide [Lasix] 20 mg PO LUNCH 01/01/22 [History Last Taken Unknown] methadone 10 mg PO DAILY 01/01/22 [History Last Taken Unknown] pregabalin [Lyrica] 75 mg PO BID 01/01/22 [History Last Taken Unknown] Allergy/AdvReac Type Severity Reaction Status Date / Time ciprofloxacin [From Cipro] AdvReac PAIN IN Verified 01/01/21 11:01 FEET ciprofloxacin HCl AdvReac PAIN IN Verified 01/01/21 11:01 [From Cipro] FEET citalopram AdvReac SUICIDAL Verified 01/01/21 11:01 THOUGHTS gabapentin [From Neurontin] AdvReac EFFECTED Verified 01/01/21 11:01 VISION AND HEARING hydrochlorothiazide AdvReac DIZZINESS Verified 01/01/21 11:01 levetiracetam [From Keppra] AdvReac Other Verified 01/01/21 11:01 STATINS AdvReac SEVERE Uncoded 12/30/20 09:04 MUSCLE PAINS Social History Smoking Status: Never smoker ROS Constitutional Constitutional: Reports fatigue; Denies chills, fever(s), headache(s), weakness or weight loss Eyes Eyes: Denies blurry vision or loss of vision ENT HEENT: Denies dizziness or headache(s) Cardiovascular Cardiovascular: Reports abdominal pain, edema, leg edema and leg ulcers; Denies chest pain, dyspnea or dyspnea on exertion Respiratory/Chest Respiratory/Chest: Denies cough, shortness of breath at rest or wheezing Gastrointestinal Gastrointestinal: Denies abdominal pain, diarrhea, nausea or vomiting Genitourinary Genitourinary: Denies difficulty urinating or urinary urgency Musculoskeletal Musculoskeletal: Reports abnormal gait, arthralgias, difficulty walking, extremity pain, joint stiffness, muscle spasms, muscle weakness, myalgias and numbness Integumentary Integumentary: Reports skin ulcer and wounds Neurologic Neurologic: Reports abnormal gait, numbness and weakness; Denies dizziness or memory loss Psychiatric Psychiatric: Denies homicidal ideation or suicidal thoughts Endocrine Endocrinology: Denies polydipsia, polyphagia or polyuria Vital Signs Vital Signs Vital Signs: 01/01/22 09:59 Temperature 97.8 F Temperature Source Temporal Pulse Rate 62 Respiratory Rate 18 Blood Pressure 124/78 H Blood Pressure Mean 93 Blood Pressure Source Monitor Blood Pressure Position Semi-Fowlers Blood Pressure Location Left Arm Physical Exam Const alert, oriented x3 and no apparent distress Orientation / Consciousness: awake, oriented to person, oriented to place and oriented to time Nutritional Appearance: obese HEENT normocephalic and head/scalp atraumatic Mouth: oral and palatal mucosa normal Eyes PERRL Neck no lymphadenopathy Lymph Lymphatic: lymphedema severe and pitting Resp normal respiratory effort Effort and Inspection: able to speak in complete sentences Auscultation: clear to auscultation bilaterally Cardio regular rate and regular rhythm GI soft to palpation, non-tender, non-distended and no masses Skin General Skin Exam: venous stasis and dermatitis Wounds: wounds noted Wound Narrative: as in clinical panel Neuro oriented x3 Psych mental status grossly normal, thought process normal, cooperative, affect normal and speech normal Debridement Note Debridement Note Wound debrided: RLE medial ulcer Laterality: Right Type of Debridement: Excisional debridement Anesthesia Used: 4% Lidocaine Solution, 5% Lidocaine Gel and Cetacaine Depth: Down to and including healthy tissue and in the subcutaneous layer Percentage of wound debrided: 100 Instrument Used: 5mm curette Tissue Removed: Yellow slough, devitalized tissue Severity: Fat Layer Exposed Amount of bleeding with debridement: Mild Bleeding Controlled with: Compression and gauze Patient tolerated procedure: Patient tolerated procedure well Post-Debridement Measurements and Additional Note: Post-Debridement Measurements/Treatment - Nurse 1 - General Ulcer Assessment Start: 01/01/22 09:59 Freq: Status: Active Protocol: ONDINA Activity Type Activity Date Activity User E-Sign Co-Sign Detail Recorded Client Recorded Date Recorded By Document 01/01/22 09:59 ARPIT [id number] 01/01/22 10:16 RB 01/01/22 09:59 - Today's Visit Information Type of service Follow-up Visit (Physician/CASHIER COURTESY BOOTH ) Arrival Mode Ambulatory Transfer Assistance None Patient Identification Verified (Name & Yes ) Patient Requires Transmission-Based No Precautions Vital Signs Temperature (97.8 F-99.1 F) 97.8 F Temperature Source Temporal Pulse Rate (60-100) 62 Pulse Location Monitor Respiratory Rate (12-18) 18 Respiratory rate source Observation Blood Pressure (90/60-120/80) 124/78 H Blood Pressure Mean 93 Source Monitor Position Semi-Fowlers Blood Pressure Location Left Arm History Since Last Visit- (Skip if this is Patient's initial visit) Have you changed medications since your No last visit? Any new allergies or adverse reactions No Had a fall/change in ADL's that may No increase risk of falls Signs or symptoms of abuse and/or No neglect since last visit Have you been in the hospital since your No last visit? Has dressing in place as prescribed Yes Has compression in place as prescribed Yes Has offloadiing in place as prescribed No Experienced any changes in pain level or No management Left Footwear Regular Shoe Right Footwear Regular Shoe Pain Scale: 0-10 Numeric Is Patient Pain Free? Yes Lower Extremity Assessment/ Foot Assessment/ Toe Nail Assessment Right -Posterior Tibial Palpable Yes -Dorsalis Pedis Palpable Yes -Extremity Color Hyperpigmented -Hair Growth on Legs No -Hair Growth on Toes No -Temperature of Extremity Warm -Capillary Refill Greater than 3 Seconds -Dependent Rubor No -Blanched when Elevated No -Lipodermatosclerosis No -Other Deformity No -Prior Foot Ulcer No -Charcot Joint No -Prior Amputation No -Thick No -Discolored No -Deformed No -Improper Length & Hygeine No Left -Posterior Tibial Palpable Yes -Dorsalis Pedis Palpable Yes -Extremity Color Hyperpigmented -Hair Growth on Legs No -Hair Growth on Toes No -Temperature of Extremity Warm -Capillary Refill Greater than 3 Seconds -Dependent Rubor No -Blanched when Elevated No -Lipodermatosclerosis No -Other Deformity No -Prior Foot Ulcer No -Charcot Joint No -Prior Amputation No -Thick No -Discolored No -Deformed No -Improper Length & Hygeine No Neuropathy Assessment Feet - Top Side and Bottom <Entered> (a) Communication Assessment Preferred language Iranian Environmental Engineer Required No Able to Read Yes Able to Write Yes Communication Tools None Caregiver Communication Skills No Impairment Impairment Right Hearing Abillity Normal Left Hearing Abillity Normal Visual Assistive Devices Glasses Teaching Assessment Preferences Verbal,Written, Demonstration Barriers to Learning None Readiness To Learn Excellent Willingness to Engage in Self Management High Activies Readiness to Engage in Self Management High Activities Anxiety Level Calm Cooperation Cooperative Perception Coherent Interest in Health Problem Asks Questions Education Importance Acknowledges Need Does Patient Smoke tobacco or other No substances Smoking Status Never smoker Is Patient Diabetic No Functional Assessment Recent Decline in Ability to Perform Denies Any Declines Assistive Device With Patient Yes Culture/Scientologist/Oracle Financial Application Developer Cultural/Scientologist Needs that may affect No Treatment Plan Would you allow our hospital fuels sales representative to No meet you for the purpose of spiritual/ emotional support? Oracle Financial Application Developer to contact place of temple No Teaching: Wound Center *Welcome to the Wound Center -Person Taught Patient -Teaching Method Discussion -Response to teaching Verbalize understanding (a) 1 - + throughout WC - Nurse 1 - General Ulcer Measurement Start: 01/01/22 09:59 Freq: Status: Active Protocol: Activity Type Activity Date Activity User E-Sign Co-Sign Detail Recorded Client Recorded Date Recorded By Document 01/01/22 09:59 RB [id number] 01/01/22 10:16 RB 01/01/22 09:59 Wound Center Nurse 1 14. RLE medial -Combined with other wound No -Current Size (cm) - Length 8.5 -Current Size (cm) - Width 9.2 -Current Size (cm) - Depth 0.1 -Total Square Cm 78.20 -Photo Taken Yes -Tunneling No -Undermining/Tunneling No -Circular Undermining No -Exudate Amt Large -Exudate Type Serosanguineous -Wound Margin Distinct, Outline Attached -Granulation Amt Medium (34-66%) -Granulation Quality [place] -Slough/Fibrin Yes -Necrosis Amt Medium (34-66%) -Necrotic Tissue Type Adherent Slough -Structure Exposed N/A -Texture (Marie-wound Skin Appearance) Assessed, Excoriation, Fluctuance -Moisture (Marie-wound Skin Appearance) Assessed -Color (Marie-wound Skin Appearance) Assessed -Temperature (Marie-wound Skin No Abnormality Appearance) (Pt Warm) -Tenderness on Palpation (Marie-wound No Skin Appearance) -Ulcer Cleansing Wound Cleanser -Foul Odor after Cleansing No -Anesthetic Used 4% Lidocaine Solution 13. LLE lateral -Combined with other wound No -Current Size (cm) - Length 9.3 -Current Size (cm) - Width 6 -Current Size (cm) - Depth 0.1 -Total Square Cm 55.8 -Photo Taken Yes -Tunneling No -Undermining/Tunneling No -Circular Undermining No -Exudate Amt Large -Exudate Type Serosanguineous -Wound Margin Distinct, Outline Attached -Granulation Amt Large (67-100%) -Granulation Quality [place] -Slough/Fibrin Yes -Necrosis Amt Medium (34-66%) -Necrotic Tissue Type Adherent Slough -Structure Exposed N/A -Texture (Marie-wound Skin Appearance) Excoriation, Friable -Moisture (Marie-wound Skin Appearance) Assessed -Color (Marie-wound Skin Appearance) Assessed -Temperature (Marie-wound Skin No Abnormality Appearance) (Pt Warm) -Tenderness on Palpation (Marie-wound No Skin Appearance) -Ulcer Cleansing Wound Cleanser -Foul Odor after Cleansing Yes, Due to Product Use -Anesthetic Used 4% Lidocaine Solution Lower Limb Edema Present Yes Right Calf (cm) 49 Right Ankle (cm) 29.4 Left Calf (cm) 46 Left Ankle (cm) 30 WC - Nurse 2 - General Ulcer CM Notes Start: 01/01/22 09:59 Freq: Status: Active Protocol: Activity Type Activity Date Activity User E-Sign Co-Sign Detail Recorded Client Recorded Date Recorded By Document 01/01/22 10:50 MW [id number] 01/01/22 11:15 MW 01/01/22 10:50 Wound Center Nurse 2 14. RLE medial -Time 10:50 -Correct Patient Yes -Correct Side, Site, Position Yes -Correct Procedure Yes -Procedure Performed Yes -Type of Procedure Debridement -Clinical Debridement Subcutaneous -Tissue Removed Subcutaneous -Post Debridement (cm) - Length 7.2 -Post Debridement (cm) - Width 9.0 -Post Debridement (cm) - Depth 0.1 -Total Square (Post) (cm) 64.80 -Area of Debridement (cm) - Length 7.2 -Area of Debridement (cm) - Width 9.0 -Total Square (Area) (cm) 64.80 -Tunneling No -Undermining/Tunneling No -Circular Undermining No -Wound/Ulcer Outcome Not Healed -Ulcer Cleansing Rinsed/ Irrigated with Saline -Foul Odor after Cleansing No -Bioengineered Tissue No -Bleeding Controlled with Pressure -Treatment Response Procedure Tolerated Well -Offloading No -Assistive Device(s) Walker -Debridement - Subq, 1st 20sq cm Yes -Debridement, SubQ, ea addt'l 20sq cm 5 or part thereof 13. LLE lateral -Time 10:51 -Correct Patient Yes -Correct Side, Site, Position Yes -Correct Procedure Yes -Procedure Performed Yes -Type of Procedure Debridement -Clinical Debridement Subcutaneous -Tissue Removed Subcutaneous -Post Debridement (cm) - Length 8.7 -Post Debridement (cm) - Width 5.4 -Post Debridement (cm) - Depth 0.1 -Total Square (Post) (cm) 46.98 -Area of Debridement (cm) - Length 8.7 -Area of Debridement (cm) - Width 5.4 -Total Square (Area) (cm) 46.98 -Tunneling No -Undermining/Tunneling No -Circular Undermining No -Wound/Ulcer Outcome Not Healed -Ulcer Cleansing Rinsed/ Irrigated with Saline -Foul Odor after Cleansing No -Bioengineered Tissue No -Bleeding Controlled with Pressure -Treatment Response Procedure Tolerated Well -Offloading No -Debridement - Subq, 1st 20sq cm No -Debridement, SubQ, ea addt'l 20sq cm 2 or part thereof Pain Scale: 0-10 Numeric Is Patient Pain Free? Yes - Nurse 3 - General Ulcer D/C NN Start: 01/01/22 09:59 Freq: Status: Active Protocol: Activity Type Activity Date Activity User E-Sign Co-Sign Detail Recorded Client Recorded Date Recorded By Document 01/01/22 12:12 [id number] 01/01/22 12:16 01/01/22 12:12 Wound Care Nurse 3 14. RLE medial -Ulcer Cleansing Wound Cleanser -Primary Dressing Applied Aquacel Extra, Optilok 6.5x10 -Aquacel Extra 1 -Optilok 6.5x10 1 13. LLE lateral -Ulcer Cleansing Wound Cleanser -Primary Dressing Applied Aquacel Extra -Other Dressing super absorber -Aquacel Extra 1 Bilateral -Multi-Layered Wrap Application Unna Boot - Bilateral ($) -Unna Boots (Bilat) ($) 2 Treatment Response Procedure Tolerated Well Pain Scale: 0-10 Numeric Is Patient Pain Free? Yes - Visit Discharge Discharge Condition Stable Ambulatory Status Ambulatory, Walker Transportation Private Auto Clinical Summary of Care Provided Yes Additional Wound Wound debrided: LLE medial Laterality: Left Type of Debridement: Excisional debridement Anesthesia Used: 4% Lidocaine Solution and 5% Lidocaine Gel Depth: Down to and including healthy tissue and in the subcutaneous layer Percentage of wound debrided: 100 Instrument Used: 5mm curette Tissue Removed: Yellow slough, devitalized tissue Severity: Fat Layer Exposed Amount of bleeding with debridement: Mild Bleeding Controlled with: Compression and gauze Patient tolerated procedure: Patient tolerated procedure well Assessment/Plan Assessment/Plan (1) Ulcer of left lower extremity with fat layer exposed: CODE(S): L97.922 - Non-pressure chronic ulcer of unspecified part of left lower leg with fat layer exposed (2) Venous ulcer of both lower extremities with varicose veins: CODE(S): I83.019 - Varicose veins of right lower extremity with ulcer of unspecified site; I83.029 - Varicose veins of left lower extremity with ulcer of unspecified site (3) Lymphedema: CODE(S): I89.0 - Lymphedema, not elsewhere classified (4) Chronic pain disorder: CODE(S): G89.4 - Chronic pain syndrome (5) Central nervous system deficit: CODE(S): G98.8 - Other disorders of nervous system (6) History of pulmonary embolism: CODE(S): Z86.711 - Personal history of pulmonary embolism (7) History of DVT (deep vein thrombosis): CODE(S): Z86.718 - Personal history of other venous thrombosis and embolism (8) Chronic L sided weakness: (9) History of CVA (cerebrovascular accident): CODE(S): Z86.73 - Personal history of transient ischemic attack (TIA), and cerebral infarction without residual deficits (10) Hypertension: CODE(S): I10 - Essential (primary) hypertension QUALIFIERS: Hypertension type: primary hypertension Qualified Code(s): I10 - Essential (primary) hypertension (11) Seizure disorder: CODE(S): G40.909 - Epilepsy, unspecified, not intractable, without status epilepticus (12) Ulcer of right lower extremity with fat layer exposed: CODE(S): L97.912 - Non-pressure chronic ulcer of unspecified part of right lower leg with fat layer exposed PLAN: Mauricio's ulcer is evaluated and debrided today at the wound healing center. I have been treating him over the last several weeks as his primary care physician using calcium alginate and UNNA boot therapy and he has started to develop significant slough necessitating treatment at the wound healing center for venous stasis ulcers of his bilateral lower extremities to undergo excisional debridement. Due to the lack of improvement with conventional therapy over the last 6 weeks and his history of difficult to heal ulcers, I am going to apply for application with skin substitute such as Epifix or Apligraf as I believe these are medically necessary to heal his ulcers and would heal his ulcers in a shorter time frame. His ulcers are going to be dressed with Aquacel Extra and super absorbant dressing under UNNA boots for heavy drainage. This will be changed by home health on Tuesday and he will return to the wound center for evaluation and debridement on Tuesday. I plan on trying to use Misonix ultrasonic debridement if able and if tolerated and will continue to use conventional treatment until authorization from his insurance is received for treatment with advanced wound healing product. He is encouraged to elevate his legs and use lymphedema pumps. We discussed importance of nutrition and increased protein intake for wound healing. He will call if there is increased drainage, erythema, fever, chills, or pain. He will return in 1 week for follow up.
--- NOTE | 2022-01-05 09:52 | WC ---
01/01/22 I 13
== END 2022-01-07 23:59 | disposition home or self-care (01) ==
LOC: WC 09:03
PROVIDERS: PCP Family Medicine; Visit Provider Family Medicine
DX: I83.028 Varicose veins of left lower extremity with ulcer other part of lower leg (principal); L97.922 Non-pressure chronic ulcer of unspecified part of left lower leg with fat layer exposed; L97.912 Non-pressure chronic ulcer of unspecified part of right lower leg with fat layer exposed; L97.828 Non-pressure chronic ulcer of other part of left lower leg with other specified severity; G40.909 Epilepsy, unspecified, not intractable, without status epilepticus; R60.0 Localized edema; I10 Essential (primary) hypertension; G62.9 Polyneuropathy, unspecified; I89.0 Lymphedema, not elsewhere classified; I87.2 Venous insufficiency (chronic) (peripheral); I83.93 Asymptomatic varicose veins of bilateral lower extremities; G89.4 Chronic pain syndrome; Z79.01 Long term (current) use of anticoagulants; G98.8 Other disorders of nervous system; Z86.711 Personal history of pulmonary embolism; Z86.718 Personal history of other venous thrombosis and embolism; Z86.73 Personal history of transient ischemic attack (TIA), and cerebral infarction without residual deficits
CPT/HCPCS: 11042; 11045; 29580; 99213; G0463

== ENCOUNTER 2022-02-05 09:00 | Outpatient (RCR) | payer MEDICAID, SELFPAY ==
[2022-01-08 00:53] VITALS: BP 124/78; PULSE 62; RESP 18; TEMP 36.6
[2022-01-08 08:06] VITALS: BP 127/86; PULSE 81; RESP 22; TEMP 36.2
--- NOTE | 2022-01-08 11:00 | PN.PCM_ITS ---
History of Present Illness Date of Service: 01/08/22 Chief Complaint: venous ulcers of bilateral lower extremities History of Wound: Mauricio is a 66 yo gentleman who is here today for evaluation of ulcers to to his bilateral lower legs. He has been treated multiple times in the past at the wound healing center for similar ulcers. The left LE ulcer started after he developed increased swelling and blisters of left leg in September and the right leg started sometime at the end of October He was prescribed Doxycycline in September, October, and November. He denies improvement and is having swelling to left his calf and thigh. He has been having swelling to both lower extremities for many years and it has worsened over the last few months. He has clear yellow drainage and redness without odor or warmth. He is anti- coagulated on coumadin. He has been washing with Dial soap and witch ifrah. He had been using Collagen at times and using Calcium Alginate and covering with gauze during October. He was treated with UNNA boot therapy Since November 19, 2021 using calcium alginate over the ulcers under the UNNA boots. He was referred to the wound center for ongoing treatment as his ulcers have not improved in the last few weeks and slough has increased. His ulcers have moderate to heavy drainage. Subjective Subjective Mauricio returns today for follow up of venous ulcers of his bilateral LE. He tolerated treatment with UNNA boot therapy done last week with change on Tuesday. He has had improvement in edema compared to last week. He denies any fever, chills, increased drainage, odor or pain. Objective Data Objective Data Vital Signs: Vital Signs Temp Pulse Resp BP 97.1 F L 81 22 H 127/86 H 01/08/22 08:06 01/08/22 08:06 01/08/22 08:06 01/08/22 08:06 Physical Exam Const alert, oriented x3 and no apparent distress General Appearance: cooperative and comfortable HEENT normocephalic and head/scalp atraumatic Mouth: oral and palatal mucosa normal Lymph Lymphatic: lymphedema severe Resp normal respiratory effort Effort and Inspection: able to speak in complete sentences Cardio regular rate and regular rhythm Extremity General Extremity: edema bilateral lower extremity Details: moderate Skin General Skin Exam: venous stasis and dermatitis Wounds: wounds noted Wound Narrative: as in clinical panel Psych mental status grossly normal, thought process normal, cooperative, affect normal and speech normal Debridement Note Debridement Note Wound debrided: right LE medial Laterality: Right Type of Debridement: Excisional debridement Anesthesia Used: 4% Lidocaine Solution and Cetacaine Depth: Down to and including healthy tissue and in the subcutaneous layer Percentage of wound debrided: 100 Instrument Used: - (Misonix ultrasonic debridement) Tissue Removed: Yellow slough, devitalized tissue Severity: Fat Layer Exposed Amount of bleeding with debridement: Mild Bleeding Controlled with: Compression and gauze Patient tolerated procedure: Patient tolerated procedure well Post-Debridement Measurements and Additional Note: Post-Debridement Measurements/Treatment DEBBIE - Nurse 1 - General Ulcer Assessment Start: 01/08/22 08:06 Freq: Status: Active Protocol: ONDINA Activity Type Activity Date Activity User E-Sign Co-Sign Detail Recorded Client Recorded Date Recorded By Document 01/08/22 08:06 ADITI [id number] 01/08/22 08:17 DL 01/08/22 08:06 WC - Today's Visit Information Type of service Follow-up Visit (Physician/FLIGHT OPERATION COORDINATOR ) Arrival Mode Ambulatory, Walker Transfer Assistance None Patient Identification Verified (Name & Yes ) Patient Requires Transmission-Based No Precautions Vital Signs Temperature (97.8 F-99.1 F) 97.1 F L Temperature Source Temporal Pulse Rate (60-100) 81 Pulse Location Monitor Respiratory Rate (12-18) 22 H Respiratory rate source Observation Blood Pressure (90/60-120/80) 127/86 H Blood Pressure Mean (mm Hg) 99 Source Monitor History Since Last Visit- (Skip if this is Patient's initial visit) Have you changed medications since your No last visit? Any new allergies or adverse reactions No Had a fall/change in ADL's that may No increase risk of falls Signs or symptoms of abuse and/or No neglect since last visit Have you been in the hospital since your No last visit? Has dressing in place as prescribed Yes Has compression in place as prescribed No Has offloadiing in place as prescribed N/A Experienced any changes in pain level or No management Left Footwear Regular Shoe Right Footwear Regular Shoe Pain Scale: 0-10 Numeric Is Patient Pain Free? Yes DEBBIE Berger Nurse 1 - General Ulcer Measurement Start: 01/08/22 08:06 Freq: Status: Active Protocol: Activity Type Activity Date Activity User E-Sign Co-Sign Detail Recorded Client Recorded Date Recorded By Document 01/08/22 08:06 DL [id number] 01/08/22 08:17 DL 01/08/22 08:06 Wound Center Nurse 1 14. RLE medial -Current Size (cm) - Length 9.6 -Current Size (cm) - Width 7.7 -Current Size (cm) - Depth 0.2 -Total Square Cm 73.92 -Photo Taken No -Exudate Amt Medium -Exudate Type Serosanguineous -Wound Margin Distinct, Outline Attached -Granulation Amt Medium (34-66%) -Granulation Quality Red -Necrosis Amt Medium (34-66%) -Necrotic Tissue Type Adherent Slough -Structure Exposed N/A -Texture (Marie-wound Skin Appearance) Localized Edema -Moisture (Marie-wound Skin Appearance) No Abnormality -Color (Marie-wound Skin Appearance) Hemosiderin Staining -Temperature (Marie-wound Skin No Abnormality Appearance) (Pt Warm) -Tenderness on Palpation (Marie-wound No Skin Appearance) -Ulcer Cleansing Rinsed/ Irrigated with Saline -Foul Odor after Cleansing No -Anesthetic Used 4% Lidocaine Solution 13. LLE lateral -Current Size (cm) - Length 8.2 -Current Size (cm) - Width 5.1 -Current Size (cm) - Depth 0.2 -Total Square Cm 41.82 -Photo Taken No -Exudate Amt Medium -Exudate Type Serosanguineous -Wound Margin Distinct, Outline Attached -Granulation Amt Medium (34-66%) -Granulation Quality Red -Necrosis Amt Medium (34-66%) -Necrotic Tissue Type Adherent Slough -Structure Exposed N/A -Texture (Marie-wound Skin Appearance) Localized Edema -Moisture (Marie-wound Skin Appearance) No Abnormality -Color (Marie-wound Skin Appearance) Hemosiderin Staining -Temperature (Marie-wound Skin No Abnormality Appearance) (Pt Warm) -Tenderness on Palpation (Marie-wound No Skin Appearance) -Ulcer Cleansing Rinsed/ Irrigated with Saline -Foul Odor after Cleansing No -Anesthetic Used 4% Lidocaine Solution Right Calf (cm) 46.5 Right Ankle (cm) 28.7 Left Calf (cm) 45.2 Left Ankle (cm) 30.3 WC - Nurse 2 - General Ulcer CM Notes Start: 01/08/22 08:06 Freq: Status: Active Protocol: Activity Type Activity Date Activity User E-Sign Co-Sign Detail Recorded Client Recorded Date Recorded By Document 01/08/22 09:13 MW [id number] 01/08/22 09:23 MW 01/08/22 09:13 Wound Center Nurse 2 14. RLE medial -Time 09:13 -Correct Patient Yes -Correct Side, Site, Position Yes -Correct Procedure Yes -Procedure Performed Yes -Type of Procedure Debridement -Clinical Debridement Subcutaneous -Tissue Removed Subcutaneous -Post Debridement (cm) - Length 7.5 -Post Debridement (cm) - Width 7.8 -Post Debridement (cm) - Depth 0.2 -Total Square (Post) (cm) 58.50 -Area of Debridement (cm) - Length 7.5 -Area of Debridement (cm) - Width 7.8 -Total Square (Area) (cm) 58.50 -Tunneling No -Undermining/Tunneling No -Circular Undermining No -Wound/Ulcer Outcome Not Healed -Ulcer Cleansing Rinsed/ Irrigated with Saline -Foul Odor after Cleansing No -Bioengineered Tissue No -Bleeding Controlled with Pressure -Treatment Response Procedure Tolerated Well -Offloading No -Debridement - Subq, 1st 20sq cm Yes -Debridement, SubQ, ea addt'l 20sq cm 2 or part thereof 13. LLE lateral -Time 09:13 -Correct Patient Yes -Correct Side, Site, Position Yes -Correct Procedure Yes -Procedure Performed Yes -Type of Procedure Debridement -Clinical Debridement Subcutaneous -Tissue Removed Subcutaneous -Post Debridement (cm) - Length 8.2 -Post Debridement (cm) - Width 4.5 -Post Debridement (cm) - Depth 0.2 -Total Square (Post) (cm) 36.90 -Area of Debridement (cm) - Length 8.2 -Area of Debridement (cm) - Width 4.5 -Total Square (Area) (cm) 36.90 -Tunneling No -Undermining/Tunneling No -Circular Undermining No -Wound/Ulcer Outcome Not Healed -Ulcer Cleansing Rinsed/ Irrigated with Saline -Foul Odor after Cleansing No -Bioengineered Tissue No -Bleeding Controlled with Pressure -Treatment Response Procedure Tolerated Well -Offloading No -Debridement - Subq, 1st 20sq cm No Pain Scale: 0-10 Numeric Is Patient Pain Free? Yes WC - Nurse 3 - General Ulcer D/C NN Start: 01/08/22 08:06 Freq: Status: Active Protocol: Activity Type Activity Date Activity User E-Sign Co-Sign Detail Recorded Client Recorded Date Recorded By Document 01/08/22 09:52 RB [id number] 01/08/22 09:57 RB 01/08/22 09:52 Wound Care Nurse 3 14. RLE medial -Ulcer Cleansing Wound Cleanser -Primary Dressing Applied Aquacel Extra, Optilok 6.5x10 -Primary Dressing Covered/Secured with Dry Gauze,Dry Gauze & Roll Gauze,Secured with Tape -Aquacel Extra 1 -Optilok 6.5x10 1 13. LLE lateral -Ulcer Cleansing Wound Cleanser -Primary Dressing Applied Aquacel Extra, Optilok 6.5x10 -Primary Dressing Covered/Secured with Dry Gauze,Dry Gauze & Roll Gauze,Secured with Tape -Aquacel Extra 1 -Optilok 6.5x10 1 bilat -Multi-Layered Wrap Application Unna Boot - Bilateral ($) -Unna Boots (Bilat) ($) 2 Treatment Response Procedure Tolerated Well Pain Scale: 0-10 Numeric Is Patient Pain Free? Yes WC - Visit Discharge Discharge Condition Stable Ambulatory Status Ambulatory, Walker Transportation Private Auto Medication Reconcilliation completed & No provided to patient/care provider Clinical Summary of Care Provided Yes Additional Wound Wound debrided: Left LE lateral Laterality: Left Type of Debridement: Excisional debridement Anesthesia Used: 4% Lidocaine Solution and Cetacaine Depth: Down to and including healthy tissue and in the subcutaneous layer Percentage of wound debrided: 100 Instrument Used: - (misonix ultrasonic debridement) Tissue Removed: Yellow slough, devitalized tissue Severity: Fat Layer Exposed Amount of bleeding with debridement: Mild Bleeding Controlled with: Compression and gauze Patient tolerated procedure: Patient tolerated procedure well Assessment/Plan Assessment/Plan (1) Ulcer of right lower extremity with fat layer exposed: CODE(S): L97.912 - Non-pressure chronic ulcer of unspecified part of right lower leg with fat layer exposed (2) Ulcer of left lower extremity with fat layer exposed: CODE(S): L97.922 - Non-pressure chronic ulcer of unspecified part of left lower leg with fat layer exposed (3) Edema: CODE(S): R60.9 - Edema, unspecified QUALIFIERS: Edema type: unspecified Qualified Code(s): R60.9 - Edema, unspecified (4) Hypertension: CODE(S): I10 - Essential (primary) hypertension QUALIFIERS: Hypertension type: primary hypertension Qualified Code(s): I10 - Essential (primary) hypertension (5) History of CVA (cerebrovascular accident): CODE(S): Z86.73 - Personal history of transient ischemic attack (TIA), and cerebral infarction without residual deficits (6) Seizure disorder: CODE(S): G40.909 - Epilepsy, unspecified, not intractable, without status epilepticus (7) Chronic L sided weakness: (8) Lymphedema: CODE(S): I89.0 - Lymphedema, not elsewhere classified (9) Chronic pain disorder: CODE(S): G89.4 - Chronic pain syndrome PLAN: Kis ulcer is evaluated and debrided today at the wound healing center. He has been treated over the last several weeks by his primary care physician using calcium alginate and UNNA boot therapy and he developed significant slough necessitating treatment at the wound healing center for venous stasis ulcers of his bilateral lower extremities to undergo excisional debridement. He tolerated treatment with Misonix ultrasonic debridement. Due to the lack of improvement with conventional therapy over the last 6 weeks and his history of difficult to heal ulcers, I am going to apply for application with skin substitute such as Epifix or Apligraf as I believe these are medically necessary to heal his ulcers and would heal his ulcers in a shorter time frame. His ulcers are going to be dressed with Aquacel Extra and super absorbant dressing under UNNA boots for heavy drainage. This will be changed by home health on Tuesday and he will return to the wound center for evaluation and debridement on Tuesday. Will continue to use conventional treatment until authorization from his insurance is received for treatment with advanced wound healing product. He is encouraged to elevate his legs and use lymphedema pumps. We discussed importance of nutrition and increased protein intake for wound healing. He will call if there is increased drainage, erythema, fever, chills, or pain. He will return in 1 week for follow up.
[2022-01-15 08:23] VITALS: BP 101/59; PULSE 71; RESP 18; TEMP 35.6
--- NOTE | 2022-01-15 13:19 | PN.PCM_ITS ---
History of Present Illness Date of Service: 01/15/22 Chief Complaint: venous ulcers of bilateral lower extremities History of Wound: Mauricio is a 66 yo gentleman who is here today for evaluation of ulcers to to his bilateral lower legs. He has been treated multiple times in the past at the wound healing center for similar ulcers. The left LE ulcer started after he developed increased swelling and blisters of left leg in September and the right leg started sometime at the end of October He was prescribed Doxycycline in September, October, and November. He denies improvement and is having swelling to left his calf and thigh. He has been having swelling to both lower extremities for many years and it has worsened over the last few months. He has clear yellow drainage and redness without odor or warmth. He is anti- coagulated on coumadin. He has been washing with Dial soap and witch ifrah. He had been using Collagen at times and using Calcium Alginate and covering with gauze during October. He was treated with UNNA boot therapy Since November 19, 2021 using calcium alginate over the ulcers under the UNNA boots. He was referred to the wound center for ongoing treatment as his ulcers have not improved in the last few weeks and slough has increased. His ulcers have moderate to heavy drainage. Subjective Subjective Mauricio returns today for follow up of venous ulcers of his bilateral LE. He tolerated treatment with UNNA boot therapy done last week with change on Tuesday. He has had improvement in edema compared to last week. He denies any fever, chills, increased drainage, odor or pain. Objective Data Objective Data Vital Signs: Vital Signs Temp Pulse Resp BP 96.1 F L 71 18 101/59 L 01/15/22 08:23 01/15/22 08:23 01/15/22 08:23 01/15/22 08:23 Physical Exam Const alert, oriented x3 and no apparent distress General Appearance: cooperative and comfortable HEENT normocephalic and head/scalp atraumatic Lymph Lymphatic: lymphedema severe Resp normal respiratory effort Effort and Inspection: able to speak in complete sentences Cardio regular rate and regular rhythm Extremity General Extremity: edema bilateral lower extremity Details: moderate Skin General Skin Exam: venous stasis and dermatitis Wounds: wounds noted Wound Narrative: as in clinical panel Psych mental status grossly normal, thought process normal, cooperative, affect normal and speech normal Debridement Note Debridement Note Wound debrided: RLE medial Laterality: Right Type of Debridement: Excisional debridement Anesthesia Used: 4% Lidocaine Solution and Cetacaine Depth: Down to and including healthy tissue and in the subcutaneous layer Percentage of wound debrided: 100 Instrument Used: - (misonix ultrasonic debridement) Tissue Removed: Yellow slough, devitalized tissue Severity: Fat Layer Exposed Amount of bleeding with debridement: Mild Bleeding Controlled with: Compression and gauze Patient tolerated procedure: Patient tolerated procedure well Post-Debridement Measurements and Additional Note: Post-Debridement Measurements/Treatment - Nurse 1 - General Ulcer Assessment Start: 01/08/22 08:06 Freq: Status: Active Protocol: ONDINA Activity Type Activity Date Activity User E-Sign Co-Sign Detail Recorded Client Recorded Date Recorded By Document 01/08/22 08:06 DL [id number] 01/08/22 08:17 DL Document 01/15/22 08:23 RB [id number] 01/15/22 08:38 RB 01/08/22 01/15/22 08:06 08:23 - Today's Visit Information Type of service Follow-up Visit Follow-up Visit (Physician/STEAM CONDITIONER OPERATOR (Physician/STEAM CONDITIONER OPERATOR ) ) Arrival Mode Ambulatory, Ambulatory, Walker Walker Transfer Assistance None None Patient Identification Verified (Name & Yes Yes ) Patient Requires Transmission-Based No No Precautions Vital Signs Temperature (97.8 F-99.1 F) 97.1 F L 96.1 F L Temperature Source Temporal Temporal Pulse Rate (60-100) 81 71 Pulse Location Monitor Monitor Respiratory Rate (12-18) 22 H 18 Respiratory rate source Observation Observation Blood Pressure (90/60-120/80) 127/86 H 101/59 L Blood Pressure Mean (mm Hg) 99 73 Source Monitor Monitor Position Sitting Blood Pressure Location Right Arm History Since Last Visit- (Skip if this is Patient's initial visit) Have you changed medications since your No No last visit? Any new allergies or adverse reactions No No Had a fall/change in ADL's that may No No increase risk of falls Signs or symptoms of abuse and/or No No neglect since last visit Have you been in the hospital since your No No last visit? Has dressing in place as prescribed Yes Yes Has compression in place as prescribed No Yes Has offloadiing in place as prescribed N/A No Experienced any changes in pain level or No No management Left Footwear Regular Shoe Regular Shoe Right Footwear Regular Shoe Regular Shoe Pain Scale: 0-10 Numeric Is Patient Pain Free? Yes Yes WC - Nurse 1 - General Ulcer Measurement Start: 01/08/22 08:06 Freq: Status: Active Protocol: Activity Type Activity Date Activity User E-Sign Co-Sign Detail Recorded Client Recorded Date Recorded By Document 01/08/22 08:06 DL [id number] 01/08/22 08:17 DL Document 01/15/22 08:23 RB [id number] 01/15/22 08:38 RB 01/08/22 01/15/22 08:06 08:23 Wound Center Nurse 1 14. RLE medial -Combined with other wound No -Current Size (cm) - Length 9.6 6.5 -Current Size (cm) - Width 7.7 7.5 -Current Size (cm) - Depth 0.2 0.1 -Total Square Cm 73.92 48.75 -Photo Taken No -Tunneling No -Undermining/Tunneling No -Circular Undermining No -Exudate Amt Medium Medium -Exudate Type Serosanguineous Serosanguineous -Wound Margin Distinct, Distinct, Outline Outline Attached Attached -Granulation Amt Medium (34-66%) Medium (34-66%) -Granulation Quality Red [place] -Slough/Fibrin Yes -Necrosis Amt Medium (34-66%) Small (1-33%) -Necrotic Tissue Type Adherent Slough Adherent Slough -Structure Exposed N/A N/A -Texture (Marie-wound Skin Appearance) Localized Edema Assessed -Moisture (Marie-wound Skin Appearance) No Abnormality Assessed -Color (Marie-wound Skin Appearance) Hemosiderin Assessed, Staining Hemosiderin Staining -Temperature (Marie-wound Skin No Abnormality No Abnormality Appearance) (Pt Warm) (Pt Warm) -Tenderness on Palpation (Marie-wound No No Skin Appearance) -Ulcer Cleansing Rinsed/ Wound Cleanser Irrigated with Saline -Foul Odor after Cleansing No No -Anesthetic Used 4% Lidocaine 4% Lidocaine Solution Solution 13. LLE lateral -Combined with other wound No -Current Size (cm) - Length 8.2 8 -Current Size (cm) - Width 5.1 5 -Current Size (cm) - Depth 0.2 0.1 -Total Square Cm 41.82 40 -Photo Taken No -Tunneling No -Undermining/Tunneling No -Circular Undermining No -Exudate Amt Medium Large -Exudate Type Serosanguineous Serosanguineous -Wound Margin Distinct, Distinct, Outline Outline Attached Attached -Granulation Amt Medium (34-66%) Medium (34-66%) -Granulation Quality Red [place] -Slough/Fibrin Yes -Necrosis Amt Medium (34-66%) Medium (34-66%) -Necrotic Tissue Type Adherent Slough Adherent Slough -Structure Exposed N/A N/A -Texture (Marie-wound Skin Appearance) Localized Edema Assessed -Moisture (Marie-wound Skin Appearance) No Abnormality Assessed -Color (Marie-wound Skin Appearance) Hemosiderin Hemosiderin Staining Staining -Temperature (Marie-wound Skin No Abnormality No Abnormality Appearance) (Pt Warm) (Pt Warm) -Tenderness on Palpation (Marie-wound No No Skin Appearance) -Ulcer Cleansing Rinsed/ Wound Cleanser Irrigated with Saline -Foul Odor after Cleansing No No -Anesthetic Used 4% Lidocaine 4% Lidocaine Solution Solution Lower Limb Edema Present Yes Right Calf (cm) 46.5 49 Right Ankle (cm) 28.7 28.5 Left Calf (cm) 45.2 49 Left Ankle (cm) 30.3 28 WC - Nurse 2 - General Ulcer CM Notes Start: 01/08/22 08:06 Freq: Status: Active Protocol: Activity Type Activity Date Activity User E-Sign Co-Sign Detail Recorded Client Recorded Date Recorded By Document 01/08/22 09:13 MW [id number] 01/08/22 09:23 MW Edit Result 01/08/22 09:13 MW (1) [id number] 01/11/22 06:53 PL Document 01/15/22 09:14 MW [id number] 01/15/22 09:19 MW (1) 14. RLE medial - Debridement, SubQ, ea addt'l 20sq cm 2 => 4 or part thereof 01/08/22 01/15/22 09:13 09:14 Wound Center Nurse 2 14. RLE medial -Time 09:13 09:14 -Correct Patient Yes Yes -Correct Side, Site, Position Yes Yes -Correct Procedure Yes Yes -Procedure Performed Yes Yes -Type of Procedure Debridement Debridement -Clinical Debridement Subcutaneous Subcutaneous -Tissue Removed Subcutaneous Subcutaneous -Post Debridement (cm) - Length 7.5 6.4 -Post Debridement (cm) - Width 7.8 7.2 -Post Debridement (cm) - Depth 0.2 0.1 -Total Square (Post) (cm) 58.50 46.08 -Area of Debridement (cm) - Length 7.5 6.4 -Area of Debridement (cm) - Width 7.8 7.2 -Total Square (Area) (cm) 58.50 46.08 -Tunneling No No -Undermining/Tunneling No No -Circular Undermining No No -Wound/Ulcer Outcome Not Healed Not Healed -Ulcer Cleansing Rinsed/ Rinsed/ Irrigated with Irrigated with Saline Saline -Foul Odor after Cleansing No No -Bioengineered Tissue No No -Bleeding Controlled with Pressure Pressure -Treatment Response Procedure Procedure Tolerated Well Tolerated Well -Offloading No No -Debridement - Subq, 1st 20sq cm Yes Yes -Debridement, SubQ, ea addt'l 20sq cm 4 2 or part thereof 13. LLE lateral -Time 09:13 09:14 -Correct Patient Yes Yes -Correct Side, Site, Position Yes Yes -Correct Procedure Yes Yes -Procedure Performed Yes Yes -Type of Procedure Debridement Debridement -Clinical Debridement Subcutaneous Subcutaneous -Tissue Removed Subcutaneous Subcutaneous -Post Debridement (cm) - Length 8.2 7.0 -Post Debridement (cm) - Width 4.5 3.9 -Post Debridement (cm) - Depth 0.2 0.1 -Total Square (Post) (cm) 36.90 27.30 -Area of Debridement (cm) - Length 8.2 7.0 -Area of Debridement (cm) - Width 4.5 3.9 -Total Square (Area) (cm) 36.90 27.30 -Tunneling No No -Undermining/Tunneling No No -Circular Undermining No No -Wound/Ulcer Outcome Not Healed -Ulcer Cleansing Rinsed/ Irrigated with Saline -Foul Odor after Cleansing No No -Bioengineered Tissue No No -Bleeding Controlled with Pressure Pressure -Treatment Response Procedure Procedure Tolerated Well Tolerated Well -Offloading No No -Debridement - Subq, 1st 20sq cm No No Pain Scale: 0-10 Numeric Is Patient Pain Free? Yes Yes WC - Nurse 3 - General Ulcer D/C NN Start: 01/08/22 08:06 Freq: Status: Active Protocol: Activity Type Activity Date Activity User E-Sign Co-Sign Detail Recorded Client Recorded Date Recorded By Document 01/08/22 09:52 RB [id number] 01/08/22 09:57 RB Document 01/15/22 09:57 RB [id number] 01/15/22 09:58 RB 01/08/22 01/15/22 09:52 09:57 Wound Care Nurse 3 14. RLE medial -Ulcer Cleansing Wound Cleanser -Primary Dressing Applied Aquacel Extra, Aquacel Extra, Optilok 6.5x10 Optilok 6.5x10 -Primary Dressing Covered/Secured with Dry Gauze,Dry Gauze & Roll Gauze,Secured with Tape -Aquacel Extra 1 1 -Optilok 6.5x10 1 1 13. LLE lateral -Ulcer Cleansing Wound Cleanser -Primary Dressing Applied Aquacel Extra, Optilok 6.5x10 -Other Dressing aquacel extra and half piece of optiliock -Primary Dressing Covered/Secured with Dry Gauze,Dry Gauze & Roll Gauze,Secured with Tape -Aquacel Extra 1 -Optilok 6.5x10 1 bilat -Multi-Layered Wrap Application Unna Boot - Unna Boot - Bilateral ($) Bilateral ($) -Unna Boots (Bilat) ($) 2 2 Treatment Response Procedure Tolerated Well Pain Scale: 0-10 Numeric Is Patient Pain Free? Yes Yes WC - Visit Discharge Discharge Condition Stable Stable Ambulatory Status Ambulatory, Ambulatory, Walker Walker Transportation Private Auto Private Auto Medication Reconcilliation completed & No No provided to patient/care provider Clinical Summary of Care Provided Yes Yes Additional Wound Wound debrided: LLE lateral Laterality: Left Type of Debridement: Excisional debridement Anesthesia Used: 4% Lidocaine Solution and Cetacaine Depth: Down to and including healthy tissue and in the subcutaneous layer Percentage of wound debrided: 100 Instrument Used: - (misonix ultrasonic debridement) Tissue Removed: Yellow slough, devitalized tissue Severity: Fat Layer Exposed Amount of bleeding with debridement: Mild Bleeding Controlled with: Compression and gauze Patient tolerated procedure: Patient tolerated procedure well Assessment/Plan Assessment/Plan (1) Ulcer of right lower extremity with fat layer exposed: CODE(S): L97.912 - Non-pressure chronic ulcer of unspecified part of right lower leg with fat layer exposed (2) Ulcer of left lower extremity with fat layer exposed: CODE(S): L97.922 - Non-pressure chronic ulcer of unspecified part of left lower leg with fat layer exposed (3) Edema: CODE(S): R60.9 - Edema, unspecified QUALIFIERS: Edema type: unspecified Qualified Code(s): R60.9 - Edema, unspecified (4) Hypertension: CODE(S): I10 - Essential (primary) hypertension QUALIFIERS: Hypertension type: primary hypertension Qualified Code(s): I10 - Essential (primary) hypertension (5) History of CVA (cerebrovascular accident): CODE(S): Z86.73 - Personal history of transient ischemic attack (TIA), and cerebral infarction without residual deficits (6) Seizure disorder: CODE(S): G40.909 - Epilepsy, unspecified, not intractable, without status epilepticus (7) Chronic L sided weakness: (8) Lymphedema: CODE(S): I89.0 - Lymphedema, not elsewhere classified (9) Chronic pain disorder: CODE(S): G89.4 - Chronic pain syndrome PLAN: Mauricio's ulcer is evaluated and debrided today at the wound healing center. He has been treated over the last several weeks by his primary care physician using calcium alginate and UNNA boot therapy and he developed significant slough necessitating treatment at the wound healing center for venous stasis ulcers of his bilateral lower extremities to undergo excisional debridement. He tolerated treatment with Misonix ultrasonic debridement. Due to the lack of improvement with conventional therapy over the last 6 weeks and his history of difficult to heal ulcers, I am going to apply for application with skin substitute such as Epifix or Apligraf as I believe these are medically necessary to heal his ulcers and would heal his ulcers in a shorter time frame. His ulcers are going to be dressed with Aquacel Extra and super absorbant dressing under UNNA boots for heavy drainage. This will be changed by home health on Tuesday and he will return to the wound center for evaluation and debridement on Tuesday. Will continue to use conventional treatment until authorization from his insurance is received for treatment with advanced wound healing product. He is encouraged to elevate his legs and use lymphedema pumps. We discussed importance of nutrition and increased protein intake for wound healing. He will call if there is increased drainage, erythema, fever, chills, or pain. He will return in 1 week for follow up.
[2022-01-22 09:55] VITALS: BP 113/86; PULSE 66; RESP 20; TEMP 36.3
--- NOTE | 2022-01-22 12:42 | PCM.WC.PN ---
History of Present Illness Date of Service: 01/22/22 Chief Complaint: venous ulcers of bilateral lower extremities History of Wound: Mauricio is a 66 yo gentleman who is here today for evaluation of ulcers to to his bilateral lower legs. He has been treated multiple times in the past at the wound healing center for similar ulcers. The left LE ulcer started after he developed increased swelling and blisters of left leg in September and the right leg started sometime at the end of October He was prescribed Doxycycline in September, October, and November. He denies improvement and is having swelling to left his calf and thigh. He has been having swelling to both lower extremities for many years and it has worsened over the last few months. He has clear yellow drainage and redness without odor or warmth. He is anti-coagulated on coumadin. He has been washing with Dial soap and witch ifrah. He had been using Collagen at times and using Calcium Alginate and covering with gauze during October. He was treated with UNNA boot therapy Since November 19, 2021 using calcium alginate over the ulcers under the UNNA boots. He was referred to the wound center for ongoing treatment as his ulcers have not improved in the last few weeks and slough has increased. His ulcers have moderate to heavy drainage. Subjective Subjective Mauricio returns today for follow up of venous ulcers of his bilateral LE. He tolerated treatment with UNNA boot therapy done last week with change on Tuesday. He has had improvement in edema compared to last week. He denies any fever, chills, increased drainage, odor or pain. Objective Data Objective Data Vital Signs: Vital Signs Temp Pulse Resp BP 97.3 F L 66 20 H 113/86 H 01/22/22 09:55 01/22/22 09:55 01/22/22 09:55 01/22/22 09:55 Physical Exam Const alert, oriented x3 and no apparent distress General Appearance: cooperative and comfortable HEENT normocephalic and head/scalp atraumatic Lymph Lymphatic: lymphedema severe Resp normal respiratory effort Effort and Inspection: able to speak in complete sentences Cardio regular rate and regular rhythm Extremity General Extremity: edema bilateral lower extremity Details: moderate Skin General Skin Exam: venous stasis and dermatitis Wounds: wounds noted Wound Narrative: as in clinical panel Psych mental status grossly normal, thought process normal, cooperative, affect normal and speech normal Debridement Note Debridement Note Wound debrided: Right lower leg medial Laterality: Right Type of Debridement: Excisional debridement Anesthesia Used: 4% Lidocaine Solution Depth: Down to and including healthy tissue and in the subcutaneous layer Percentage of wound debrided: 100 Instrument Used: - (misonix ultrasonic debridement) Tissue Removed: Yellow slough, devitalized tissue Severity: Fat Layer Exposed Amount of bleeding with debridement: Mild Bleeding Controlled with: Compression and gauze Patient tolerated procedure: Patient tolerated procedure well Post-Debridement Measurements and Additional Note: Post-Debridement Measurements/Treatment - Nurse 1 - General Ulcer Assessment Start: 01/08/22 08:06 Freq: Status: Active Protocol: ONDINA Activity Type Activity Date Activity User E-Sign Co-Sign Detail Recorded Client Recorded Date Recorded By Document 01/08/22 08:06 DL [id number] 01/08/22 08:17 DL Document 01/15/22 08:23 RB [id number] 01/15/22 08:38 RB Document 01/22/22 09:55 DL [id number] 01/22/22 10:00 DL 01/08/22 01/15/22 01/22/22 08:06 08:23 09:55 - Today's Visit Information Type of service Follow-up Visit Follow-up Visit Follow-up Visit (Physician/ADMISSION SPECIALIST (Physician/ADMISSION SPECIALIST (Physician/ADMISSION SPECIALIST ) ) ) Arrival Mode Ambulatory, Ambulatory, Ambulatory, Walker Walker Walker Transfer Assistance None None None Patient Identification Verified (Name & Yes Yes Yes ) Patient Requires Transmission-Based No No Precautions Vital Signs Temperature (97.8 F-99.1 F) 97.1 F L 96.1 F L 97.3 F L Temperature Source Temporal Temporal Temporal Pulse Rate (60-100) 81 71 66 Pulse Location Monitor Monitor Monitor Respiratory Rate (12-18) 22 H 18 20 H Respiratory rate source Observation Observation Observation Blood Pressure (90/60-120/80) 127/86 H 101/59 L 113/86 H Blood Pressure Mean (mm Hg) 99 73 95 Source Monitor Monitor Monitor Position Sitting Blood Pressure Location Right Arm History Since Last Visit- (Skip if this is Patient's initial visit) Have you changed medications since your No No No last visit? Any new allergies or adverse reactions No No No Had a fall/change in ADL's that may No No No increase risk of falls Signs or symptoms of abuse and/or No No No neglect since last visit Have you been in the hospital since your No No last visit? Has dressing in place as prescribed Yes Yes Yes Has compression in place as prescribed No Yes Yes Has offloadiing in place as prescribed N/A No N/A Experienced any changes in pain level or No No No management Left Footwear Regular Shoe Regular Shoe Right Footwear Regular Shoe Regular Shoe Pain Scale: 0-10 Numeric Is Patient Pain Free? Yes Yes Yes WC - Nurse 1 - General Ulcer Measurement Start: 01/08/22 08:06 Freq: Status: Active Protocol: Activity Type Activity Date Activity User E-Sign Co-Sign Detail Recorded Client Recorded Date Recorded By Document 01/08/22 08:06 DL [id number] 01/08/22 08:17 DL Document 01/15/22 08:23 RB [id number] 01/15/22 08:38 RB Document 01/22/22 09:55 DL [id number] 01/22/22 10:00 DL 01/08/22 01/15/22 01/22/22 08:06 08:23 09:55 Wound Center Nurse 1 14. RLE medial -Combined with other wound No -Current Size (cm) - Length 9.6 6.5 5.8 -Current Size (cm) - Width 7.7 7.5 6.3 -Current Size (cm) - Depth 0.2 0.1 0.1 -Total Square Cm 73.92 48.75 36.54 -Photo Taken No No -Tunneling No -Undermining/Tunneling No -Circular Undermining No -Exudate Amt Medium Medium Medium -Exudate Type Serosanguineous Serosanguineous Serosanguineous -Wound Margin Distinct, Distinct, Distinct, Outline Outline Outline Attached Attached Attached -Granulation Amt Medium (34-66%) Medium (34-66%) Medium (34-66%) -Granulation Quality Red [place] Red -Slough/Fibrin Yes -Necrosis Amt Medium (34-66%) Small (1-33%) Medium (34-66%) -Necrotic Tissue Type Adherent Slough Adherent Slough Adherent Slough -Structure Exposed N/A N/A N/A -Texture (Marie-wound Skin Appearance) Localized Edema Assessed Scarring -Moisture (Marie-wound Skin Appearance) No Abnormality Assessed Dry/Scaly -Color (Marie-wound Skin Appearance) Hemosiderin Assessed, Hemosiderin Staining Hemosiderin Staining Staining -Temperature (Marie-wound Skin No Abnormality No Abnormality No Abnormality Appearance) (Pt Warm) (Pt Warm) (Pt Warm) -Tenderness on Palpation (Marie-wound No No Yes Skin Appearance) -Ulcer Cleansing Rinsed/ Wound Cleanser Soap and Water Irrigated with Saline -Foul Odor after Cleansing No No No -Anesthetic Used 4% Lidocaine 4% Lidocaine 5% Lidocaine Solution Solution Gel 13. LLE lateral -Combined with other wound No -Current Size (cm) - Length 8.2 8 6.4 -Current Size (cm) - Width 5.1 5 3.5 -Current Size (cm) - Depth 0.2 0.1 0.1 -Total Square Cm 41.82 40 22.40 -Photo Taken No No -Tunneling No -Undermining/Tunneling No -Circular Undermining No -Exudate Amt Medium Large Medium -Exudate Type Serosanguineous Serosanguineous Serosanguineous -Wound Margin Distinct, Distinct, Distinct, Outline Outline Outline Attached Attached Attached -Granulation Amt Medium (34-66%) Medium (34-66%) Medium (34-66%) -Granulation Quality Red [place] Red -Slough/Fibrin Yes -Necrosis Amt Medium (34-66%) Medium (34-66%) Medium (34-66%) -Necrotic Tissue Type Adherent Slough Adherent Slough Adherent Slough -Structure Exposed N/A N/A N/A -Texture (Marie-wound Skin Appearance) Localized Edema Assessed Scarring -Moisture (Marie-wound Skin Appearance) No Abnormality Assessed Dry/Scaly -Color (Marie-wound Skin Appearance) Hemosiderin Hemosiderin Hemosiderin Staining Staining Staining -Temperature (Marie-wound Skin No Abnormality No Abnormality No Abnormality Appearance) (Pt Warm) (Pt Warm) (Pt Warm) -Tenderness on Palpation (Marie-wound No No No Skin Appearance) -Ulcer Cleansing Rinsed/ Wound Cleanser Soap and Water Irrigated with Saline -Foul Odor after Cleansing No No No -Anesthetic Used 4% Lidocaine 4% Lidocaine 5% Lidocaine Solution Solution Gel Lower Limb Edema Present Yes Right Calf (cm) 46.5 49 48.7 Right Ankle (cm) 28.7 28.5 28.5 Left Calf (cm) 45.2 49 48.5 Point of measurement (cm from the medial 29.5 instep) Left Ankle (cm) 30.3 28 WC - Nurse 2 - General Ulcer CM Notes Start: 01/08/22 08:06 Freq: Status: Active Protocol: Activity Type Activity Date Activity User E-Sign Co-Sign Detail Recorded Client Recorded Date Recorded By Document 01/08/22 09:13 MW [id number] 01/08/22 09:23 MW Edit Result 01/08/22 09:13 MW (1) [id number] 01/11/22 06:53 PL Document 01/15/22 09:14 MW [id number] 01/15/22 09:19 MW Edit Result 01/15/22 09:14 MW (2) [id number] 01/18/22 06:51 PL Document 01/22/22 10:18 MW [id number] 01/22/22 10:30 MW (1) 14. RLE medial - Debridement, SubQ, ea addt'l 20sq cm 2 => 4 or part thereof (2) 14. RLE medial - Debridement, SubQ, ea addt'l 20sq cm 2 => 3 or part thereof 01/08/22 01/15/22 01/22/22 09:13 09:14 10:18 Wound Center Nurse 2 14. RLE medial -Time 09:13 09:14 10:19 -Correct Patient Yes Yes Yes -Correct Side, Site, Position Yes Yes Yes -Correct Procedure Yes Yes Yes -Procedure Performed Yes Yes Yes -Type of Procedure Debridement Debridement Debridement -Clinical Debridement Subcutaneous Subcutaneous Subcutaneous -Tissue Removed Subcutaneous Subcutaneous Subcutaneous -Post Debridement (cm) - Length 7.5 6.4 6.4 -Post Debridement (cm) - Width 7.8 7.2 6.5 -Post Debridement (cm) - Depth 0.2 0.1 0.1 -Total Square (Post) (cm) 58.50 46.08 41.60 -Area of Debridement (cm) - Length 7.5 6.4 6.4 -Area of Debridement (cm) - Width 7.8 7.2 6.5 -Total Square (Area) (cm) 58.50 46.08 41.60 -Tunneling No No No -Undermining/Tunneling No No No -Circular Undermining No No No -Wound/Ulcer Outcome Not Healed Not Healed Not Healed -Ulcer Cleansing Rinsed/ Rinsed/ Rinsed/ Irrigated with Irrigated with Irrigated with Saline Saline Saline -Foul Odor after Cleansing No No No -Bioengineered Tissue No No No -Bleeding Controlled with Pressure Pressure Pressure -Treatment Response Procedure Procedure Procedure Tolerated Well Tolerated Well Tolerated Well -Offloading No No No -Debridement - Subq, 1st 20sq cm Yes Yes Yes -Debridement, SubQ, ea addt'l 20sq cm 4 3 3 or part thereof 13. LLE lateral -Time 09:13 09:14 10:19 -Correct Patient Yes Yes Yes -Correct Side, Site, Position Yes Yes Yes -Correct Procedure Yes Yes Yes -Procedure Performed Yes Yes Yes -Type of Procedure Debridement Debridement Debridement -Clinical Debridement Subcutaneous Subcutaneous Subcutaneous -Tissue Removed Subcutaneous Subcutaneous Subcutaneous -Post Debridement (cm) - Length 8.2 7.0 7.1 -Post Debridement (cm) - Width 4.5 3.9 4.2 -Post Debridement (cm) - Depth 0.2 0.1 0.1 -Total Square (Post) (cm) 36.90 27.30 29.82 -Area of Debridement (cm) - Length 8.2 7.0 7.1 -Area of Debridement (cm) - Width 4.5 3.9 4.2 -Total Square (Area) (cm) 36.90 27.30 29.82 -Tunneling No No No -Undermining/Tunneling No No No -Circular Undermining No No No -Wound/Ulcer Outcome Not Healed Not Healed -Ulcer Cleansing Rinsed/ Rinsed/ Irrigated with Irrigated with Saline Saline -Foul Odor after Cleansing No No No -Bioengineered Tissue No No No -Bleeding Controlled with Pressure Pressure Pressure -Treatment Response Procedure Procedure Procedure Tolerated Well Tolerated Well Tolerated Well -Offloading No No No -Debridement - Subq, 1st 20sq cm No No No Pain Scale: 0-10 Numeric Is Patient Pain Free? Yes Yes Yes WC - Nurse 3 - General Ulcer D/C NN Start: 01/08/22 08:06 Freq: Status: Active Protocol: Activity Type Activity Date Activity User E-Sign Co-Sign Detail Recorded Client Recorded Date Recorded By Document 01/08/22 09:52 RB [id number] 01/08/22 09:57 RB Document 01/15/22 09:57 RB [id number] 01/15/22 09:58 RB Document 01/22/22 11:31 KR [id number] 01/22/22 11:32 KR 01/08/22 01/15/22 01/22/22 09:52 09:57 11:31 Wound Care Nurse 3 14. RLE medial -Ulcer Cleansing Wound Cleanser Rinsed/ Irrigated with Saline -Primary Dressing Applied Aquacel Extra, Aquacel Extra, Aquacel Extra, Optilok 6.5x10 Optilok 6.5x10 Optilok 6.5x10 -Primary Dressing Covered/Secured with Dry Gauze,Dry Dry Gauze, Gauze & Roll Secured with Gauze,Secured Tape with Tape -Aquacel Extra 1 1 1 -Optilok 6.5x10 1 1 1 13. LLE lateral -Ulcer Cleansing Wound Cleanser Rinsed/ Irrigated with Saline -Primary Dressing Applied Aquacel Extra, Optilok 6.5x10 Optilok 6.5x10 -Other Dressing aquacel extra and half piece of optiliock -Primary Dressing Covered/Secured with Dry Gauze,Dry Dry Gauze, Gauze & Roll Secured with Gauze,Secured Tape with Tape -Aquacel Extra 1 -Optilok 6.5x10 1 1 bilat -Multi-Layered Wrap Application Unna Boot - Unna Boot - Unna Boot - Bilateral ($) Bilateral ($) Bilateral ($) -Unna Boots (Bilat) ($) 2 2 2 Treatment Response Procedure Tolerated Well Pain Scale: 0-10 Numeric Is Patient Pain Free? Yes Yes Yes WC - Visit Discharge Discharge Condition Stable Stable Stable Ambulatory Status Ambulatory, Ambulatory, Ambulatory, Walker Walker Walker Transportation Private Auto Private Auto Private Auto Medication Reconcilliation completed & No No provided to patient/care provider Clinical Summary of Care Provided Yes Yes Additional Wound Wound debrided: left lower leg lateral Laterality: Left Type of Debridement: Excisional debridement Anesthesia Used: 4% Lidocaine Solution and 5% Lidocaine Gel Depth: Down to and including healthy tissue and in the subcutaneous layer Percentage of wound debrided: 100 Instrument Used: - (misonix ultrasonic debridement) Tissue Removed: Yellow slough, devitalized tissue Severity: Fat Layer Exposed Amount of bleeding with debridement: Mild Bleeding Controlled with: Compression and gauze Patient tolerated procedure: Patient tolerated procedure well Assessment/Plan Assessment/Plan (1) Ulcer of right lower extremity with fat layer exposed: CODE(S): L97.912 - Non-pressure chronic ulcer of unspecified part of right lower leg with fat layer exposed (2) Ulcer of left lower extremity with fat layer exposed: CODE(S): L97.922 - Non-pressure chronic ulcer of unspecified part of left lower leg with fat layer exposed (3) Edema: CODE(S): R60.9 - Edema, unspecified QUALIFIERS: Edema type: unspecified Qualified Code(s): R60.9 - Edema, unspecified (4) Hypertension: CODE(S): I10 - Essential (primary) hypertension QUALIFIERS: Hypertension type: primary hypertension Qualified Code(s): I10 - Essential (primary) hypertension (5) History of CVA (cerebrovascular accident): CODE(S): Z86.73 - Personal history of transient ischemic attack (TIA), and cerebral infarction without residual deficits (6) Seizure disorder: CODE(S): G40.909 - Epilepsy, unspecified, not intractable, without status epilepticus (7) Chronic L sided weakness: (8) Lymphedema: CODE(S): I89.0 - Lymphedema, not elsewhere classified (9) Chronic pain disorder: CODE(S): G89.4 - Chronic pain syndrome PLAN: Kis ulcers were evaluated and debrided today at the wound healing center. He has been treated since November by his primary care physician using calcium alginate and UNNA boot therapy and he developed significant slough necessitating treatment at the wound healing center for venous stasis ulcers of his bilateral lower extremities to undergo excisional debridement. He tolerated treatment with Misonix ultrasonic debridement today. Due to the lack of improvement with conventional therapy over the last 6 weeks and his history of difficult to heal ulcers, I applied for application with skin substitute such as Epifix or Apligraf as I believe these are medically necessary to heal his ulcers and would heal his ulcers in a shorter time frame and improve his outcomes with avoidance of limb loss. The initial request was denied and we are appealing the decision of his insurance company's denial for Epifix as it is medically necessary for use of this treatment. His ulcers are going to be dressed with Aquacel Extra and super absorbant dressing under UNNA boots for heavy drainage. This will be changed by home health on Tuesday and he will return to the wound center for evaluation and debridement on Tuesday. Will continue to use conventional treatment until authorization from his insurance is received for treatment with advanced wound healing product. He is encouraged to elevate his legs and use lymphedema pumps. We discussed importance of nutrition and increased protein intake for wound healing. He will call if there is increased drainage, erythema, fever, chills, or pain. He will return in 1 week for follow up.
[2022-01-29 08:01] VITALS: BP 110/67; PULSE 85; TEMP 35.9
--- NOTE | 2022-01-29 15:22 | PCM.WC.PN ---
History of Present Illness Date of Service: 01/29/22 Chief Complaint: venous ulcers of bilateral lower extremities History of Wound: Mauricio is a 66 yo gentleman who is here today for evaluation of ulcers to to his bilateral lower legs. He has been treated multiple times in the past at the wound healing center for similar ulcers. The left LE ulcer started after he developed increased swelling and blisters of left leg in September and the right leg started sometime at the end of October He was prescribed Doxycycline in September, October, and November. He denies improvement and is having swelling to left his calf and thigh. He has been having swelling to both lower extremities for many years and it has worsened over the last few months. He has clear yellow drainage and redness without odor or warmth. He is anti-coagulated on coumadin. He has been washing with Dial soap and witch ifrah. He had been using Collagen at times and using Calcium Alginate and covering with gauze during October. He was treated with UNNA boot therapy Since November 19, 2021 using calcium alginate over the ulcers under the UNNA boots. He was referred to the wound center for ongoing treatment as his ulcers have not improved in the last few weeks and slough has increased. His ulcers have moderate to heavy drainage. Subjective Subjective Mauricio returns today for follow up of venous ulcers of his bilateral LE. He tolerated treatment with UNNA boot therapy done last week with change on Tuesday. He has had improvement in edema compared to last week. He denies any fever, chills, increased drainage, odor or pain. Objective Data Objective Data Vital Signs: Vital Signs Temp Pulse Resp BP 96.6 F L 85 20 H 110/67 01/29/22 08:01 01/29/22 08:01 01/22/22 09:55 01/29/22 08:01 Physical Exam Const alert, oriented x3 and no apparent distress General Appearance: cooperative and comfortable HEENT normocephalic and head/scalp atraumatic Lymph Lymphatic: lymphedema severe Resp normal respiratory effort Effort and Inspection: able to speak in complete sentences Cardio regular rate and regular rhythm Extremity General Extremity: edema bilateral lower extremity Details: moderate Skin General Skin Exam: venous stasis and dermatitis Wounds: wounds noted Wound Narrative: as in clinical panel Psych mental status grossly normal, thought process normal, cooperative, affect normal and speech normal Debridement Note Debridement Note Wound debrided: RLE medial Laterality: Right Type of Debridement: Excisional debridement Anesthesia Used: 4% Lidocaine Solution and Cetacaine Depth: Down to and including healthy tissue and in the subcutaneous layer Percentage of wound debrided: 100 Instrument Used: - (gauze) Tissue Removed: Yellow slough, devitalized tissue Severity: Fat Layer Exposed Amount of bleeding with debridement: Mild Bleeding Controlled with: Compression and gauze Patient tolerated procedure: Patient tolerated procedure well Post-Debridement Measurements and Additional Note: Post-Debridement Measurements/Treatment - Nurse 1 - General Ulcer Assessment Start: 01/08/22 08:06 Freq: Status: Active Protocol: [email or web address].[email or web address] Activity Type Activity Date Activity User E-Sign Co-Sign Detail Recorded Client Recorded Date Recorded By Document 01/08/22 08:06 DL [id number] 01/08/22 08:17 DL Document 01/15/22 08:23 RB [id number] 01/15/22 08:38 RB Document 01/22/22 09:55 DL [id number] 01/22/22 10:00 DL Document 01/29/22 08:01 AK [id number] 01/29/22 08:16 AK 01/08/22 01/15/22 01/22/22 08:06 08:23 09:55 - Today's Visit Information Type of service Follow-up Visit Follow-up Visit Follow-up Visit (Physician/CREDIT DEPARTMENT MANAGER (Physician/CREDIT DEPARTMENT MANAGER (Physician/CREDIT DEPARTMENT MANAGER ) ) ) Arrival Mode Ambulatory, Ambulatory, Ambulatory, Walker Walker Walker Transfer Assistance None None None Patient Identification Verified (Name & Yes Yes Yes ) Patient Requires Transmission-Based No No Precautions Safety Precautions Vital Signs Temperature (97.8 F-99.1 F) 97.1 F L 96.1 F L 97.3 F L Temperature Source Temporal Temporal Temporal Pulse Rate (60-100) 81 71 66 Pulse Location Monitor Monitor Monitor Respiratory Rate (12-18) 22 H 18 20 H Respiratory rate source Observation Observation Observation Blood Pressure (90/60-120/80) 127/86 H 101/59 L 113/86 H Blood Pressure Mean (mm Hg) 99 73 95 Source Monitor Monitor Monitor Position Sitting Blood Pressure Location Right Arm History Since Last Visit- (Skip if this is Patient's initial visit) Have you changed medications since your No No No last visit? Any new allergies or adverse reactions No No No Had a fall/change in ADL's that may No No No increase risk of falls Signs or symptoms of abuse and/or No No No neglect since last visit Have you been in the hospital since your No No last visit? Has dressing in place as prescribed Yes Yes Yes Has compression in place as prescribed No Yes Yes Has offloadiing in place as prescribed N/A No N/A Experienced any changes in pain level or No No No management Left Footwear Regular Shoe Regular Shoe Right Footwear Regular Shoe Regular Shoe Pain Scale: 0-10 Numeric Is Patient Pain Free? Yes Yes Yes 01/29/22 08:01 WC - Today's Visit Information Type of service Follow-up Visit (Physician/CREDIT DEPARTMENT MANAGER ) Arrival Mode Ambulatory, Walker Transfer Assistance Patient Identification Verified (Name & Yes ) Patient Requires Transmission-Based No Precautions Safety Precautions NA Vital Signs Temperature (97.8 F-99.1 F) 96.6 F L Temperature Source Temporal Pulse Rate (60-100) 85 Pulse Location Monitor Respiratory Rate (12-18) Respiratory rate source Blood Pressure (90/60-120/80) 110/67 Blood Pressure Mean (mm Hg) 81 Source Monitor Position Blood Pressure Location History Since Last Visit- (Skip if this is Patient's initial visit) Have you changed medications since your No last visit? Any new allergies or adverse reactions No Had a fall/change in ADL's that may No increase risk of falls Signs or symptoms of abuse and/or No neglect since last visit Have you been in the hospital since your No last visit? Has dressing in place as prescribed Yes Has compression in place as prescribed Yes Has offloadiing in place as prescribed N/A Experienced any changes in pain level or No management Left Footwear Regular Shoe Right Footwear Regular Shoe Pain Scale: 0-10 Numeric Is Patient Pain Free? Yes - Nurse 1 - General Ulcer Measurement Start: 01/08/22 08:06 Freq: Status: Active Protocol: Activity Type Activity Date Activity User E-Sign Co-Sign Detail Recorded Client Recorded Date Recorded By Document 01/08/22 08:06 DL [id number] 01/08/22 08:17 DL Document 01/15/22 08:23 RB [id number] 01/15/22 08:38 RB Document 01/22/22 09:55 DL [id number] 01/22/22 10:00 DL Document 01/29/22 08:01 AK [id number] 01/29/22 08:16 AK 01/08/22 01/15/22 01/22/22 08:06 08:23 09:55 Wound Center Nurse 1 14. RLE medial -Combined with other wound No -Current Size (cm) - Length 9.6 6.5 5.8 -Current Size (cm) - Width 7.7 7.5 6.3 -Current Size (cm) - Depth 0.2 0.1 0.1 -Total Square Cm 73.92 48.75 36.54 -Photo Taken No No -Tunneling No -Undermining/Tunneling No -Circular Undermining No -Change in Wound Grade/Stage -Exudate Amt Medium Medium Medium -Exudate Type Serosanguineous Serosanguineous Serosanguineous -Wound Margin Distinct, Distinct, Distinct, Outline Outline Outline Attached Attached Attached -Granulation Amt Medium (34-66%) Medium (34-66%) Medium (34-66%) -Granulation Quality Red [place] Red -Slough/Fibrin Yes -Necrosis Amt Medium (34-66%) Small (1-33%) Medium (34-66%) -Necrotic Tissue Type Adherent Slough Adherent Slough Adherent Slough -Structure Exposed N/A N/A N/A -Texture (Marie-wound Skin Appearance) Localized Edema Assessed Scarring -Moisture (Marie-wound Skin Appearance) No Abnormality Assessed Dry/Scaly -Color (Marie-wound Skin Appearance) Hemosiderin Assessed, Hemosiderin Staining Hemosiderin Staining Staining -Temperature (Marie-wound Skin No Abnormality No Abnormality No Abnormality Appearance) (Pt Warm) (Pt Warm) (Pt Warm) -Tenderness on Palpation (Marie-wound No No Yes Skin Appearance) -Ulcer Cleansing Rinsed/ Wound Cleanser Soap and Water Irrigated with Saline -Foul Odor after Cleansing No No No -Anesthetic Used 4% Lidocaine 4% Lidocaine 5% Lidocaine Solution Solution Gel 13. LLE lateral -Combined with other wound No -Current Size (cm) - Length 8.2 8 6.4 -Current Size (cm) - Width 5.1 5 3.5 -Current Size (cm) - Depth 0.2 0.1 0.1 -Total Square Cm 41.82 40 22.40 -Photo Taken No No -Epithelialization -Tunneling No -Undermining/Tunneling No -Circular Undermining No -Change in Wound Grade/Stage -Exudate Amt Medium Large Medium -Exudate Type Serosanguineous Serosanguineous Serosanguineous -Wound Margin Distinct, Distinct, Distinct, Outline Outline Outline Attached Attached Attached -Granulation Amt Medium (34-66%) Medium (34-66%) Medium (34-66%) -Granulation Quality Red [place] Red -Slough/Fibrin Yes -Necrosis Amt Medium (34-66%) Medium (34-66%) Medium (34-66%) -Necrotic Tissue Type Adherent Slough Adherent Slough Adherent Slough -Structure Exposed N/A N/A N/A -Texture (Marie-wound Skin Appearance) Localized Edema Assessed Scarring -Moisture (Marie-wound Skin Appearance) No Abnormality Assessed Dry/Scaly -Color (Marie-wound Skin Appearance) Hemosiderin Hemosiderin Hemosiderin Staining Staining Staining -Temperature (Marie-wound Skin No Abnormality No Abnormality No Abnormality Appearance) (Pt Warm) (Pt Warm) (Pt Warm) -Tenderness on Palpation (Marie-wound No No No Skin Appearance) -Ulcer Cleansing Rinsed/ Wound Cleanser Soap and Water Irrigated with Saline -Foul Odor after Cleansing No No No -Anesthetic Used 4% Lidocaine 4% Lidocaine 5% Lidocaine Solution Solution Gel Lower Limb Edema Present Yes Right Calf (cm) 46.5 49 48.7 Right Ankle (cm) 28.7 28.5 28.5 Left Calf (cm) 45.2 49 48.5 Point of measurement (cm from the medial 29.5 instep) Left Ankle (cm) 30.3 28 01/29/22 08:01 Wound Center Nurse 1 14. RLE medial -Combined with other wound No -Current Size (cm) - Length 5.5 -Current Size (cm) - Width 6.5 -Current Size (cm) - Depth 0.1 -Total Square Cm 35.75 -Photo Taken No -Tunneling No -Undermining/Tunneling No -Circular Undermining No -Change in Wound Grade/Stage No -Exudate Amt Medium -Exudate Type Serosanguineous -Wound Margin Distinct, Outline Attached -Granulation Amt Medium (34-66%) -Granulation Quality [place],Red -Slough/Fibrin -Necrosis Amt Small (1-33%) -Necrotic Tissue Type Adherent Slough -Structure Exposed N/A -Texture (Marie-wound Skin Appearance) No Abnormality, Assessed -Moisture (Marie-wound Skin Appearance) No Abnormality, Assessed -Color (Marie-wound Skin Appearance) Assessed, Hemosiderin Staining -Temperature (Marie-wound Skin No Abnormality Appearance) (Pt Warm) -Tenderness on Palpation (Marie-wound No Skin Appearance) -Ulcer Cleansing Soap and Water -Foul Odor after Cleansing No -Anesthetic Used 4% Lidocaine Solution 13. LLE lateral -Combined with other wound No -Current Size (cm) - Length 7 -Current Size (cm) - Width 3.5 -Current Size (cm) - Depth 0.1 -Total Square Cm 24.5 -Photo Taken No -Epithelialization None Present -Tunneling No -Undermining/Tunneling No -Circular Undermining No -Change in Wound Grade/Stage No -Exudate Amt -Exudate Type -Wound Margin Distinct, Outline Attached -Granulation Amt Medium (34-66%) -Granulation Quality [place],Red -Slough/Fibrin Yes -Necrosis Amt Small (1-33%) -Necrotic Tissue Type Adherent Slough -Structure Exposed N/A -Texture (Marie-wound Skin Appearance) Assessed -Moisture (Marie-wound Skin Appearance) Assessed -Color (Marie-wound Skin Appearance) Assessed, Hemosiderin Staining -Temperature (Marie-wound Skin No Abnormality Appearance) (Pt Warm) -Tenderness on Palpation (Marie-wound No Skin Appearance) -Ulcer Cleansing Rinsed/ Irrigated with Saline -Foul Odor after Cleansing No -Anesthetic Used 4% Lidocaine Solution Lower Limb Edema Present No Right Calf (cm) 45 Right Ankle (cm) 27 Left Calf (cm) 40 Point of measurement (cm from the medial instep) Left Ankle (cm) 33 WC - Nurse 2 - General Ulcer CM Notes Start: 01/08/22 08:06 Freq: Status: Active Protocol: Activity Type Activity Date Activity User E-Sign Co-Sign Detail Recorded Client Recorded Date Recorded By Document 01/08/22 09:13 MW [id number] 01/08/22 09:23 MW Edit Result 01/08/22 09:13 MW (1) [id number] 01/11/22 06:53 PL Document 01/15/22 09:14 MW [id number] 01/15/22 09:19 MW Edit Result 01/15/22 09:14 MW (2) [id number] 01/18/22 06:51 PL Document 01/22/22 10:18 MW [id number] 01/22/22 10:30 MW Document 01/29/22 08:51 MW [id number] 01/29/22 09:05 MW (1) 14. RLE medial - Debridement, SubQ, ea addt'l 20sq cm 2 => 4 or part thereof (2) 14. RLE medial - Debridement, SubQ, ea addt'l 20sq cm 2 => 3 or part thereof 01/08/22 01/15/22 01/22/22 09:13 09:14 10:18 Wound Center Nurse 2 14. RLE medial -Time 09:13 09:14 10:19 -Correct Patient Yes Yes Yes -Correct Side, Site, Position Yes Yes Yes -Correct Procedure Yes Yes Yes -Procedure Performed Yes Yes Yes -Type of Procedure Debridement Debridement Debridement -Clinical Debridement Subcutaneous Subcutaneous Subcutaneous -Tissue Removed Subcutaneous Subcutaneous Subcutaneous -Post Debridement (cm) - Length 7.5 6.4 6.4 -Post Debridement (cm) - Width 7.8 7.2 6.5 -Post Debridement (cm) - Depth 0.2 0.1 0.1 -Total Square (Post) (cm) 58.50 46.08 41.60 -Area of Debridement (cm) - Length 7.5 6.4 6.4 -Area of Debridement (cm) - Width 7.8 7.2 6.5 -Total Square (Area) (cm) 58.50 46.08 41.60 -Tunneling No No No -Undermining/Tunneling No No No -Circular Undermining No No No -Wound/Ulcer Outcome Not Healed Not Healed Not Healed -Ulcer Cleansing Rinsed/ Rinsed/ Rinsed/ Irrigated with Irrigated with Irrigated with Saline Saline Saline -Foul Odor after Cleansing No No No -Bioengineered Tissue No No No -Bleeding Controlled with Pressure Pressure Pressure -Treatment Response Procedure Procedure Procedure Tolerated Well Tolerated Well Tolerated Well -Offloading No No No -Debridement - Subq, 1st 20sq cm Yes Yes Yes -Debridement, SubQ, ea addt'l 20sq cm 4 3 3 or part thereof 13. LLE lateral -Time 09:13 09:14 10:19 -Correct Patient Yes Yes Yes -Correct Side, Site, Position Yes Yes Yes -Correct Procedure Yes Yes Yes -Procedure Performed Yes Yes Yes -Type of Procedure Debridement Debridement Debridement -Clinical Debridement Subcutaneous Subcutaneous Subcutaneous -Tissue Removed Subcutaneous Subcutaneous Subcutaneous -Post Debridement (cm) - Length 8.2 7.0 7.1 -Post Debridement (cm) - Width 4.5 3.9 4.2 -Post Debridement (cm) - Depth 0.2 0.1 0.1 -Total Square (Post) (cm) 36.90 27.30 29.82 -Area of Debridement (cm) - Length 8.2 7.0 7.1 -Area of Debridement (cm) - Width 4.5 3.9 4.2 -Total Square (Area) (cm) 36.90 27.30 29.82 -Tunneling No No No -Undermining/Tunneling No No No -Circular Undermining No No No -Wound/Ulcer Outcome Not Healed Not Healed -Ulcer Cleansing Rinsed/ Rinsed/ Irrigated with Irrigated with Saline Saline -Foul Odor after Cleansing No No No -Bioengineered Tissue No No No -Bleeding Controlled with Pressure Pressure Pressure -Treatment Response Procedure Procedure Procedure Tolerated Well Tolerated Well Tolerated Well -Offloading No No No -Debridement - Subq, 1st 20sq cm No No No Pain Scale: 0-10 Numeric Is Patient Pain Free? Yes Yes Yes 01/29/22 08:51 Wound Center Nurse 2 14. RLE medial -Time 08:52 -Correct Patient Yes -Correct Side, Site, Position Yes -Correct Procedure Yes -Procedure Performed Yes -Type of Procedure Debridement -Clinical Debridement Subcutaneous -Tissue Removed Subcutaneous -Post Debridement (cm) - Length 6.2 -Post Debridement (cm) - Width 6.5 -Post Debridement (cm) - Depth 0.1 -Total Square (Post) (cm) 40.30 -Area of Debridement (cm) - Length 6.2 -Area of Debridement (cm) - Width 6.5 -Total Square (Area) (cm) 40.30 -Tunneling No -Undermining/Tunneling No -Circular Undermining No -Wound/Ulcer Outcome Not Healed -Ulcer Cleansing Rinsed/ Irrigated with Saline -Foul Odor after Cleansing No -Bioengineered Tissue No -Bleeding Controlled with Pressure -Treatment Response Procedure Tolerated Well -Offloading No -Debridement - Subq, 1st 20sq cm Yes -Debridement, SubQ, ea addt'l 20sq cm 3 or part thereof 13. LLE lateral -Time 08:52 -Correct Patient Yes -Correct Side, Site, Position Yes -Correct Procedure Yes -Procedure Performed Yes -Type of Procedure Debridement -Clinical Debridement Subcutaneous -Tissue Removed Subcutaneous -Post Debridement (cm) - Length 7.2 -Post Debridement (cm) - Width 3.3 -Post Debridement (cm) - Depth 0.1 -Total Square (Post) (cm) 23.76 -Area of Debridement (cm) - Length 7.2 -Area of Debridement (cm) - Width 3.3 -Total Square (Area) (cm) 23.76 -Tunneling No -Undermining/Tunneling No -Circular Undermining No -Wound/Ulcer Outcome Not Healed -Ulcer Cleansing Rinsed/ Irrigated with Saline -Foul Odor after Cleansing No -Bioengineered Tissue No -Bleeding Controlled with Pressure -Treatment Response Procedure Tolerated Well -Offloading No -Debridement - Subq, 1st 20sq cm No Pain Scale: 0-10 Numeric Is Patient Pain Free? Yes WC - Nurse 3 - General Ulcer D/C NN Start: 01/08/22 08:06 Freq: Status: Active Protocol: Activity Type Activity Date Activity User E-Sign Co-Sign Detail Recorded Client Recorded Date Recorded By Document 01/08/22 09:52 RB [id number] 01/08/22 09:57 RB Document 01/15/22 09:57 RB [id number] 01/15/22 09:58 RB Document 01/22/22 11:31 KR [id number] 01/22/22 11:32 KR Document 01/29/22 09:35 RB [id number] 01/29/22 09:36 RB 01/08/22 01/15/22 01/22/22 09:52 09:57 11:31 Wound Care Nurse 3 14. RLE medial -Ulcer Cleansing Wound Cleanser Rinsed/ Irrigated with Saline -Primary Dressing Applied Aquacel Extra, Aquacel Extra, Aquacel Extra, Optilok 6.5x10 Optilok 6.5x10 Optilok 6.5x10 -Primary Dressing Covered/Secured with Dry Gauze,Dry Dry Gauze, Gauze & Roll Secured with Gauze,Secured Tape with Tape -Aquacel Extra 1 1 1 -Optilok 6.5x10 1 1 1 13. LLE lateral -Ulcer Cleansing Wound Cleanser Rinsed/ Irrigated with Saline -Primary Dressing Applied Aquacel Extra, Optilok 6.5x10 Optilok 6.5x10 -Other Dressing aquacel extra and half piece of optiliock -Primary Dressing Covered/Secured with Dry Gauze,Dry Dry Gauze, Gauze & Roll Secured with Gauze,Secured Tape with Tape -Aquacel Extra 1 -Optilok 6.5x10 1 1 bilat -Multi-Layered Wrap Application Unna Boot - Unna Boot - Unna Boot - Bilateral ($) Bilateral ($) Bilateral ($) -Unna Boots (Bilat) ($) 2 2 2 Treatment Response Procedure Tolerated Well Pain Scale: 0-10 Numeric Is Patient Pain Free? Yes Yes Yes WC - Visit Discharge Discharge Condition Stable Stable Stable Ambulatory Status Ambulatory, Ambulatory, Ambulatory, Walker Walker Walker Transportation Private Auto Private Auto Private Auto Medication Reconcilliation completed & No No provided to patient/care provider Clinical Summary of Care Provided Yes Yes 01/29/22 09:35 Wound Care Nurse 3 14. RLE medial -Ulcer Cleansing Rinsed/ Irrigated with Saline -Primary Dressing Applied Aquacel Extra, Optilok 6.5x10 -Primary Dressing Covered/Secured with -Aquacel Extra 1 -Optilok 6.5x10 1 13. LLE lateral -Ulcer Cleansing -Primary Dressing Applied Optilok 6.5x10 -Other Dressing aquacel extra -Primary Dressing Covered/Secured with -Aquacel Extra -Optilok 6.5x10 1 bilat -Multi-Layered Wrap Application Unna Boot - Bilateral ($) -Unna Boots (Bilat) ($) 2 Treatment Response Procedure Tolerated Well Pain Scale: 0-10 Numeric Is Patient Pain Free? Yes WC - Visit Discharge Discharge Condition Stable Ambulatory Status Ambulatory, Walker Transportation Private Auto Medication Reconcilliation completed & No provided to patient/care provider Clinical Summary of Care Provided Yes Additional Wound Wound debrided: LLE lateral Laterality: Left Type of Debridement: Excisional debridement Anesthesia Used: 4% Lidocaine Solution and Cetacaine Depth: Down to and including healthy tissue and in the subcutaneous layer Percentage of wound debrided: 100 Instrument Used: - (gauze) Tissue Removed: Yellow slough, devitalized tissue Severity: Fat Layer Exposed Amount of bleeding with debridement: Mild Bleeding Controlled with: Compression and gauze Patient tolerated procedure: Patient tolerated procedure well Assessment/Plan Assessment/Plan (1) Ulcer of right lower extremity with fat layer exposed: CODE(S): L97.912 - Non-pressure chronic ulcer of unspecified part of right lower leg with fat layer exposed (2) Ulcer of left lower extremity with fat layer exposed: CODE(S): L97.922 - Non-pressure chronic ulcer of unspecified part of left lower leg with fat layer exposed (3) Edema: CODE(S): R60.9 - Edema, unspecified QUALIFIERS: Edema type: unspecified Qualified Code(s): R60.9 - Edema, unspecified (4) Hypertension: CODE(S): I10 - Essential (primary) hypertension QUALIFIERS: Hypertension type: primary hypertension Qualified Code(s): I10 - Essential (primary) hypertension (5) History of CVA (cerebrovascular accident): CODE(S): Z86.73 - Personal history of transient ischemic attack (TIA), and cerebral infarction without residual deficits (6) Seizure disorder: CODE(S): G40.909 - Epilepsy, unspecified, not intractable, without status epilepticus (7) Chronic L sided weakness: (8) Lymphedema: CODE(S): I89.0 - Lymphedema, not elsewhere classified (9) Chronic pain disorder: CODE(S): G89.4 - Chronic pain syndrome PLAN: Mauricio's ulcers were evaluated and debrided today at the wound healing center. He has been treated since November by his primary care physician using calcium alginate and UNNA boot therapy and he developed significant slough necessitating treatment at the wound healing center for venous stasis ulcers of his bilateral lower extremities to undergo excisional debridement. He tolerated debridement well with aggressive gauze debridement of slough. Due to the lack of improvement with conventional therapy over the last 6 weeks and his history of difficult to heal ulcers, I applied for application with skin substitute such as Epifix or Apligraf as I believe these are medically necessary to heal his ulcers and would heal his ulcers in a shorter time frame and improve his outcomes with avoidance of limb loss. The initial request was denied and we are appealing the decision of his insurance company's denial for Epifix as it is medically necessary for use of this treatment. His ulcers are going to be dressed with Aquacel Extra and super absorbant dressing under UNNA boots for heavy drainage. This will be changed by home health on Tuesday and he will return to the wound center for evaluation and debridement on Tuesday. Will continue to use conventional treatment until authorization from his insurance is received for treatment with advanced wound healing product. He is encouraged to elevate his legs and use lymphedema pumps. We discussed importance of nutrition and increased protein intake for wound healing. He will call if there is increased drainage, erythema, fever, chills, or pain. He will return in 1 week for follow up.
[2022-02-05 09:03] VITALS: BP 107/48; PULSE 76; RESP 22; TEMP 36.4
--- NOTE | 2022-02-05 15:20 | PCM.WC.PN ---
History of Present Illness Date of Service: 02/05/22 Chief Complaint: venous ulcers of bilateral lower extremities History of Wound: Mauricio is a 66 yo gentleman who is here today for evaluation of ulcers to to his bilateral lower legs. He has been treated multiple times in the past at the wound healing center for similar ulcers. The left LE ulcer started after he developed increased swelling and blisters of left leg in September and the right leg started sometime at the end of October He was prescribed Doxycycline in September, October, and November. He denies improvement and is having swelling to left his calf and thigh. He has been having swelling to both lower extremities for many years and it has worsened over the last few months. He has clear yellow drainage and redness without odor or warmth. He is anti-coagulated on coumadin. He has been washing with Dial soap and witch ifrah. He had been using Collagen at times and using Calcium Alginate and covering with gauze during October. He was treated with UNNA boot therapy Since November 19, 2021 using calcium alginate over the ulcers under the UNNA boots. He was referred to the wound center for ongoing treatment as his ulcers have not improved in the last few weeks and slough has increased. His ulcers have moderate to heavy drainage. Subjective Subjective Mauricio returns today for follow up of venous ulcers of his bilateral LE. He tolerated treatment with UNNA boot therapy done last week with change on Tuesday. He has had improvement in edema compared to last week. He denies any fever, chills, increased drainage, odor or pain. Objective Data Objective Data Vital Signs: Vital Signs Temp Pulse Resp BP 97.5 F L 76 22 H 107/48 L 02/05/22 09:03 02/05/22 09:03 02/05/22 09:03 02/05/22 09:03 Physical Exam Const alert, oriented x3 and no apparent distress General Appearance: cooperative and comfortable HEENT normocephalic and head/scalp atraumatic Lymph Lymphatic: lymphedema severe Resp normal respiratory effort Effort and Inspection: able to speak in complete sentences Cardio regular rate and regular rhythm Extremity General Extremity: edema bilateral lower extremity Details: moderate Skin General Skin Exam: venous stasis and dermatitis Wounds: wounds noted Wound Narrative: as in clinical panel Psych mental status grossly normal, thought process normal, cooperative, affect normal and speech normal Debridement Note Debridement Note Wound debrided: right medial LE Laterality: Right Type of Debridement: Excisional debridement Anesthesia Used: 4% Lidocaine Solution and 5% Lidocaine Gel Depth: Down to and including healthy tissue and in the subcutaneous layer Percentage of wound debrided: 100 Instrument Used: - (gauze) Tissue Removed: yellow slough, devitalized tissue Severity: Fat Layer Exposed Amount of bleeding with debridement: Mild Bleeding Controlled with: Compression and gauze Patient tolerated procedure: Patient tolerated procedure well Post-Debridement Measurements and Additional Note: Post-Debridement Measurements/Treatment - Nurse 1 - General Ulcer Assessment Start: 01/08/22 08:06 Freq: Status: Active Protocol: ONDINA Activity Type Activity Date Activity User E-Sign Co-Sign Detail Recorded Client Recorded Date Recorded By Document 01/08/22 08:06 DL [id number] 01/08/22 08:17 DL Document 01/15/22 08:23 RB [id number] 01/15/22 08:38 RB Document 01/22/22 09:55 DL [id number] 01/22/22 10:00 DL Document 01/29/22 08:01 AK [id number] 01/29/22 08:16 AK Document 02/05/22 09:03 DL [id number] 02/05/22 09:08 DL 01/08/22 01/15/22 01/22/22 08:06 08:23 09:55 - Today's Visit Information Type of service Follow-up Visit Follow-up Visit Follow-up Visit (Physician/SOCK KNITTING MACHINE OPERATOR (Physician/SOCK KNITTING MACHINE OPERATOR (Physician/SOCK KNITTING MACHINE OPERATOR ) ) ) Arrival Mode Ambulatory, Ambulatory, Ambulatory, Walker Walker Walker Transfer Assistance None None None Patient Identification Verified (Name & Yes Yes Yes ) Patient Requires Transmission-Based No No Precautions Safety Precautions Vital Signs Temperature (97.8 F-99.1 F) 97.1 F L 96.1 F L 97.3 F L Temperature Source Temporal Temporal Temporal Pulse Rate (60-100) 81 71 66 Pulse Location Monitor Monitor Monitor Respiratory Rate (12-18) 22 H 18 20 H Respiratory rate source Observation Observation Observation Blood Pressure (90/60-120/80) 127/86 H 101/59 L 113/86 H Blood Pressure Mean (mm Hg) 99 73 95 Source Monitor Monitor Monitor Position Sitting Blood Pressure Location Right Arm Comment History Since Last Visit- (Skip if this is Patient's initial visit) Have you changed medications since your No No No last visit? Any new allergies or adverse reactions No No No Had a fall/change in ADL's that may No No No increase risk of falls Signs or symptoms of abuse and/or No No No neglect since last visit Have you been in the hospital since your No No last visit? Has dressing in place as prescribed Yes Yes Yes Has compression in place as prescribed No Yes Yes Has offloadiing in place as prescribed N/A No N/A Experienced any changes in pain level or No No No management Left Footwear Regular Shoe Regular Shoe Right Footwear Regular Shoe Regular Shoe Pain Scale: 0-10 Numeric Is Patient Pain Free? Yes Yes Yes 01/29/22 02/05/22 08:01 09:03 - Today's Visit Information Type of service Follow-up Visit Follow-up Visit (Physician/SOCK KNITTING MACHINE OPERATOR (Physician/SOCK KNITTING MACHINE OPERATOR ) ) Arrival Mode Ambulatory, Ambulatory Walker Transfer Assistance None Patient Identification Verified (Name & Yes Yes ) Patient Requires Transmission-Based No No Precautions Safety Precautions NA Vital Signs Temperature (97.8 F-99.1 F) 96.6 F L 97.5 F L Temperature Source Temporal Temporal Pulse Rate (60-100) 85 76 Pulse Location Monitor Monitor Respiratory Rate (12-18) 22 H Respiratory rate source Observation Blood Pressure (90/60-120/80) 110/67 107/48 L Blood Pressure Mean (mm Hg) 81 67 Source Monitor Monitor Position Blood Pressure Location Comment removed unna boots this am to shower. History Since Last Visit- (Skip if this is Patient's initial visit) Have you changed medications since your No No last visit? Any new allergies or adverse reactions No No Had a fall/change in ADL's that may No No increase risk of falls Signs or symptoms of abuse and/or No No neglect since last visit Have you been in the hospital since your No No last visit? Has dressing in place as prescribed Yes Yes Has compression in place as prescribed Yes No Has offloadiing in place as prescribed N/A N/A Experienced any changes in pain level or No No management Left Footwear Regular Shoe Right Footwear Regular Shoe Pain Scale: 0-10 Numeric Is Patient Pain Free? Yes Yes - Nurse 1 - General Ulcer Measurement Start: 01/08/22 08:06 Freq: Status: Active Protocol: Activity Type Activity Date Activity User E-Sign Co-Sign Detail Recorded Client Recorded Date Recorded By Document 01/08/22 08:06 DL [id number] 01/08/22 08:17 DL Document 01/15/22 08:23 RB [id number] 01/15/22 08:38 RB Document 01/22/22 09:55 DL [id number] 01/22/22 10:00 DL Document 01/29/22 08:01 AK [id number] 01/29/22 08:16 AK Document 02/05/22 09:03 DL [id number] 02/05/22 09:08 DL 01/08/22 01/15/22 01/22/22 08:06 08:23 09:55 Wound Center Nurse 1 14. RLE medial -Combined with other wound No -Current Size (cm) - Length 9.6 6.5 5.8 -Current Size (cm) - Width 7.7 7.5 6.3 -Current Size (cm) - Depth 0.2 0.1 0.1 -Total Square Cm 73.92 48.75 36.54 -Photo Taken No No -Tunneling No -Undermining/Tunneling No -Circular Undermining No -Change in Wound Grade/Stage -Exudate Amt Medium Medium Medium -Exudate Type Serosanguineous Serosanguineous Serosanguineous -Wound Margin Distinct, Distinct, Distinct, Outline Outline Outline Attached Attached Attached -Granulation Amt Medium (34-66%) Medium (34-66%) Medium (34-66%) -Granulation Quality Red [place] Red -Slough/Fibrin Yes -Necrosis Amt Medium (34-66%) Small (1-33%) Medium (34-66%) -Necrotic Tissue Type Adherent Slough Adherent Slough Adherent Slough -Structure Exposed N/A N/A N/A -Texture (Marie-wound Skin Appearance) Localized Edema Assessed Scarring -Moisture (Marie-wound Skin Appearance) No Abnormality Assessed Dry/Scaly -Color (Marie-wound Skin Appearance) Hemosiderin Assessed, Hemosiderin Staining Hemosiderin Staining Staining -Temperature (Marie-wound Skin No Abnormality No Abnormality No Abnormality Appearance) (Pt Warm) (Pt Warm) (Pt Warm) -Tenderness on Palpation (Marie-wound No No Yes Skin Appearance) -Ulcer Cleansing Rinsed/ Wound Cleanser Soap and Water Irrigated with Saline -Foul Odor after Cleansing No No No -Anesthetic Used 4% Lidocaine 4% Lidocaine 5% Lidocaine Solution Solution Gel 13. LLE lateral -Combined with other wound No -Current Size (cm) - Length 8.2 8 6.4 -Current Size (cm) - Width 5.1 5 3.5 -Current Size (cm) - Depth 0.2 0.1 0.1 -Total Square Cm 41.82 40 22.40 -Photo Taken No No -Epithelialization -Tunneling No -Undermining/Tunneling No -Circular Undermining No -Change in Wound Grade/Stage -Exudate Amt Medium Large Medium -Exudate Type Serosanguineous Serosanguineous Serosanguineous -Wound Margin Distinct, Distinct, Distinct, Outline Outline Outline Attached Attached Attached -Granulation Amt Medium (34-66%) Medium (34-66%) Medium (34-66%) -Granulation Quality Red [place] Red -Slough/Fibrin Yes -Necrosis Amt Medium (34-66%) Medium (34-66%) Medium (34-66%) -Necrotic Tissue Type Adherent Slough Adherent Slough Adherent Slough -Structure Exposed N/A N/A N/A -Texture (Marie-wound Skin Appearance) Localized Edema Assessed Scarring -Moisture (Marie-wound Skin Appearance) No Abnormality Assessed Dry/Scaly -Color (Marie-wound Skin Appearance) Hemosiderin Hemosiderin Hemosiderin Staining Staining Staining -Temperature (Marie-wound Skin No Abnormality No Abnormality No Abnormality Appearance) (Pt Warm) (Pt Warm) (Pt Warm) -Tenderness on Palpation (Marie-wound No No No Skin Appearance) -Ulcer Cleansing Rinsed/ Wound Cleanser Soap and Water Irrigated with Saline -Foul Odor after Cleansing No No No -Anesthetic Used 4% Lidocaine 4% Lidocaine 5% Lidocaine Solution Solution Gel Lower Limb Edema Present Yes Right Calf (cm) 46.5 49 48.7 Right Ankle (cm) 28.7 28.5 28.5 Left Calf (cm) 45.2 49 48.5 Point of measurement (cm from the medial 29.5 instep) Left Ankle (cm) 30.3 28 04/22/22 04/29/22 08:01 09:03 Wound Center Nurse 1 14. RLE medial -Combined with other wound No -Current Size (cm) - Length 5.5 5.5 -Current Size (cm) - Width 6.5 6.2 -Current Size (cm) - Depth 0.1 0.1 -Total Square Cm 35.75 34.10 -Photo Taken No No -Tunneling No -Undermining/Tunneling No -Circular Undermining No -Change in Wound Grade/Stage No -Exudate Amt Medium Medium -Exudate Type Serosanguineous Serosanguineous -Wound Margin Distinct, Distinct, Outline Outline Attached Attached -Granulation Amt Medium (34-66%) Large (67-100%) -Granulation Quality [place],Red Red -Slough/Fibrin -Necrosis Amt Small (1-33%) Small (1-33%) -Necrotic Tissue Type Adherent Slough Adherent Slough -Structure Exposed N/A N/A -Texture (Marie-wound Skin Appearance) No Abnormality, Scarring Assessed -Moisture (Marie-wound Skin Appearance) No Abnormality, No Abnormality Assessed -Color (Marie-wound Skin Appearance) Assessed, Hemosiderin Hemosiderin Staining Staining -Temperature (Marie-wound Skin No Abnormality No Abnormality Appearance) (Pt Warm) (Pt Warm) -Tenderness on Palpation (Marie-wound No No Skin Appearance) -Ulcer Cleansing Soap and Water Soap and Water -Foul Odor after Cleansing No No -Anesthetic Used 4% Lidocaine 4% Lidocaine Solution Solution 13. LLE lateral -Combined with other wound No -Current Size (cm) - Length 7 4.8 -Current Size (cm) - Width 3.5 3.3 -Current Size (cm) - Depth 0.1 0.1 -Total Square Cm 24.5 15.84 -Photo Taken No No -Epithelialization None Present -Tunneling No -Undermining/Tunneling No -Circular Undermining No -Change in Wound Grade/Stage No -Exudate Amt Medium -Exudate Type Serosanguineous -Wound Margin Distinct, Distinct, Outline Outline Attached Attached -Granulation Amt Medium (34-66%) Large (67-100%) -Granulation Quality [place],Red Red -Slough/Fibrin Yes -Necrosis Amt Small (1-33%) Small (1-33%) -Necrotic Tissue Type Adherent Slough Adherent Slough -Structure Exposed N/A N/A -Texture (Marie-wound Skin Appearance) Assessed Scarring -Moisture (Marie-wound Skin Appearance) Assessed No Abnormality, Dry/Scaly -Color (Marie-wound Skin Appearance) Assessed, Hemosiderin Hemosiderin Staining Staining -Temperature (Marie-wound Skin No Abnormality No Abnormality Appearance) (Pt Warm) (Pt Warm) -Tenderness on Palpation (Marie-wound No No Skin Appearance) -Ulcer Cleansing Rinsed/ Soap and Water Irrigated with Saline -Foul Odor after Cleansing No -Anesthetic Used 4% Lidocaine 4% Lidocaine Solution Solution Lower Limb Edema Present No Right Calf (cm) 45 46.5 Right Ankle (cm) 27 28.5 Left Calf (cm) 40 44.5 Point of measurement (cm from the medial instep) Left Ankle (cm) 33 29.2 WC - Nurse 2 - General Ulcer CM Notes Start: 01/08/22 08:06 Freq: Status: Active Protocol: Activity Type Activity Date Activity User E-Sign Co-Sign Detail Recorded Client Recorded Date Recorded By Document 01/08/22 09:13 MW [id number] 01/08/22 09:23 MW Edit Result 01/08/22 09:13 MW (1) [id number] 01/11/22 06:53 PL Document 01/15/22 09:14 MW [id number] 01/15/22 09:19 MW Edit Result 01/15/22 09:14 MW (2) [id number] 01/18/22 06:51 PL Document 01/22/22 10:18 MW [id number] 01/22/22 10:30 MW Document 01/29/22 08:51 MW [id number] 01/29/22 09:05 MW Document 02/05/22 09:20 MW [id number] 02/05/22 09:29 MW (1) 14. RLE medial - Debridement, SubQ, ea addt'l 20sq cm 2 => 4 or part thereof (2) 14. RLE medial - Debridement, SubQ, ea addt'l 20sq cm 2 => 3 or part thereof 01/08/22 01/15/22 01/22/22 09:13 09:14 10:18 Wound Center Nurse 2 14. RLE medial -Time 09: 09:14 10:19 -Correct Patient Yes Yes Yes -Correct Side, Site, Position Yes Yes Yes -Correct Procedure Yes Yes Yes -Procedure Performed Yes Yes Yes -Type of Procedure Debridement Debridement Debridement -Clinical Debridement Subcutaneous Subcutaneous Subcutaneous -Tissue Removed Subcutaneous Subcutaneous Subcutaneous -Post Debridement (cm) - Length 7.5 6.4 6.4 -Post Debridement (cm) - Width 7.8 7.2 6.5 -Post Debridement (cm) - Depth 0.2 0.1 0.1 -Total Square (Post) (cm) 58.50 46.08 41.60 -Area of Debridement (cm) - Length 7.5 6.4 6.4 -Area of Debridement (cm) - Width 7.8 7.2 6.5 -Total Square (Area) (cm) 58.50 46.08 41.60 -Tunneling No No No -Undermining/Tunneling No No No -Circular Undermining No No No -Wound/Ulcer Outcome Not Healed Not Healed Not Healed -Ulcer Cleansing Rinsed/ Rinsed/ Rinsed/ Irrigated with Irrigated with Irrigated with Saline Saline Saline -Foul Odor after Cleansing No No No -Bioengineered Tissue No No No -Bleeding Controlled with Pressure Pressure Pressure -Treatment Response Procedure Procedure Procedure Tolerated Well Tolerated Well Tolerated Well -Offloading No No No -Debridement - Subq, 1st 20sq cm Yes Yes Yes -Debridement, SubQ, ea addt'l 20sq cm 4 3 3 or part thereof 13. LLE lateral -Time : 09:14 10:19 -Correct Patient Yes Yes Yes -Correct Side, Site, Position Yes Yes Yes -Correct Procedure Yes Yes Yes -Procedure Performed Yes Yes Yes -Type of Procedure Debridement Debridement Debridement -Clinical Debridement Subcutaneous Subcutaneous Subcutaneous -Tissue Removed Subcutaneous Subcutaneous Subcutaneous -Post Debridement (cm) - Length 8.2 7.0 7.1 -Post Debridement (cm) - Width 4.5 3.9 4.2 -Post Debridement (cm) - Depth 0.2 0.1 0.1 -Total Square (Post) (cm) 36.90 27.30 29.82 -Area of Debridement (cm) - Length 8.2 7.0 7.1 -Area of Debridement (cm) - Width 4.5 3.9 4.2 -Total Square (Area) (cm) 36.90 27.30 29.82 -Tunneling No No No -Undermining/Tunneling No No No -Circular Undermining No No No -Wound/Ulcer Outcome Not Healed Not Healed -Ulcer Cleansing Rinsed/ Rinsed/ Irrigated with Irrigated with Saline Saline -Foul Odor after Cleansing No No No -Bioengineered Tissue No No No -Bleeding Controlled with Pressure Pressure Pressure -Treatment Response Procedure Procedure Procedure Tolerated Well Tolerated Well Tolerated Well -Offloading No No No -Debridement - Subq, 1st 20sq cm No No No Pain Scale: 0-10 Numeric Is Patient Pain Free? Yes Yes Yes 01/29/22 02/05/22 08:51 09:20 Wound Center Nurse 2 14. RLE medial -Time 08:52 09:20 -Correct Patient Yes Yes -Correct Side, Site, Position Yes Yes -Correct Procedure Yes Yes -Procedure Performed Yes Yes -Type of Procedure Debridement Debridement -Clinical Debridement Subcutaneous Subcutaneous -Tissue Removed Subcutaneous Subcutaneous -Post Debridement (cm) - Length 6.2 4.9 -Post Debridement (cm) - Width 6.5 5.8 -Post Debridement (cm) - Depth 0.1 0.1 -Total Square (Post) (cm) 40.30 28.42 -Area of Debridement (cm) - Length 6.2 4.9 -Area of Debridement (cm) - Width 6.5 5.8 -Total Square (Area) (cm) 40.30 28.42 -Tunneling No No -Undermining/Tunneling No No -Circular Undermining No No -Wound/Ulcer Outcome Not Healed Not Healed -Ulcer Cleansing Rinsed/ Rinsed/ Irrigated with Irrigated with Saline Saline -Foul Odor after Cleansing No No -Bioengineered Tissue No No -Bleeding Controlled with Pressure Pressure -Treatment Response Procedure Procedure Tolerated Well Tolerated Well -Offloading No -Debridement - Subq, 1st 20sq cm Yes Yes -Debridement, SubQ, ea addt'l 20sq cm 3 2 or part thereof 13. LLE lateral -Time 08:52 09:20 -Correct Patient Yes Yes -Correct Side, Site, Position Yes Yes -Correct Procedure Yes Yes -Procedure Performed Yes Yes -Type of Procedure Debridement Debridement -Clinical Debridement Subcutaneous Subcutaneous -Tissue Removed Subcutaneous Subcutaneous -Post Debridement (cm) - Length 7.2 4.7 -Post Debridement (cm) - Width 3.3 2.7 -Post Debridement (cm) - Depth 0.1 0.1 -Total Square (Post) (cm) 23.76 12.69 -Area of Debridement (cm) - Length 7.2 4.7 -Area of Debridement (cm) - Width 3.3 2.7 -Total Square (Area) (cm) 23.76 12.69 -Tunneling No No -Undermining/Tunneling No No -Circular Undermining No No -Wound/Ulcer Outcome Not Healed Not Healed -Ulcer Cleansing Rinsed/ Rinsed/ Irrigated with Irrigated with Saline Saline -Foul Odor after Cleansing No No -Bioengineered Tissue No No -Bleeding Controlled with Pressure Pressure -Treatment Response Procedure Procedure Tolerated Well Tolerated Well -Offloading No No -Debridement - Subq, 1st 20sq cm No No Pain Scale: 0-10 Numeric Is Patient Pain Free? Yes Yes WC - Nurse 3 - General Ulcer D/C NN Start: 01/08/22 08:06 Freq: Status: Active Protocol: Activity Type Activity Date Activity User E-Sign Co-Sign Detail Recorded Client Recorded Date Recorded By Document 01/08/22 09:52 RB [id number] 01/08/22 09:57 RB Document 01/15/22 09:57 RB [id number] 01/15/22 09:58 RB Document 01/22/22 11:31 KR [id number] 01/22/22 11:32 KR Document 01/29/22 09:35 RB [id number] 01/29/22 09:36 RB Document 02/05/22 09:55 RB [id number] 02/05/22 09:56 RB 01/08/22 01/15/22 01/22/22 09:52 09:57 11:31 Wound Care Nurse 3 14. RLE medial -Ulcer Cleansing Wound Cleanser Rinsed/ Irrigated with Saline -Primary Dressing Applied Aquacel Extra, Aquacel Extra, Aquacel Extra, Optilok 6.5x10 Optilok 6.5x10 Optilok 6.5x10 -Primary Dressing Covered/Secured with Dry Gauze,Dry Dry Gauze, Gauze & Roll Secured with Gauze,Secured Tape with Tape -Aquacel Extra 1 1 1 -Optilok 6.5x10 1 1 1 13. LLE lateral -Ulcer Cleansing Wound Cleanser Rinsed/ Irrigated with Saline -Primary Dressing Applied Aquacel Extra, Optilok 6.5x10 Optilok 6.5x10 -Other Dressing aquacel extra and half piece of optiliock -Primary Dressing Covered/Secured with Dry Gauze,Dry Dry Gauze, Gauze & Roll Secured with Gauze,Secured Tape with Tape -Aquacel Extra 1 -Optilok 6.5x10 1 1 bilat -Multi-Layered Wrap Application Unna Boot - Unna Boot - Unna Boot - Bilateral ($) Bilateral ($) Bilateral ($) -Unna Boots (Bilat) ($) 2 2 2 Treatment Response Procedure Tolerated Well Pain Scale: 0-10 Numeric Is Patient Pain Free? Yes Yes Yes WC - Visit Discharge Discharge Condition Stable Stable Stable Ambulatory Status Ambulatory, Ambulatory, Ambulatory, Walker Walker Walker Transportation Private Auto Private Auto Private Auto Medication Reconcilliation completed & No No provided to patient/care provider Clinical Summary of Care Provided Yes Yes 01/29/22 02/05/22 09:35 09:55 Wound Care Nurse 3 14. RLE medial -Ulcer Cleansing Rinsed/ Wound Cleanser Irrigated with Saline -Primary Dressing Applied Aquacel Extra, Aquacel Extra Optilok 6.5x10 -Primary Dressing Covered/Secured with Dry Gauze -Aquacel Extra 1 1 -Optilok 6.5x10 1 13. LLE lateral -Ulcer Cleansing Wound Cleanser -Primary Dressing Applied Optilok 6.5x10 -Other Dressing aquacel extra aquacel extra -Primary Dressing Covered/Secured with Dry Gauze -Aquacel Extra -Optilok 6.5x10 1 bilat -Multi-Layered Wrap Application Unna Boot - Unna Boot - Bilateral ($) Bilateral ($) -Unna Boots (Bilat) ($) 2 2 Treatment Response Procedure Procedure Tolerated Well Tolerated Well Pain Scale: 0-10 Numeric Is Patient Pain Free? Yes Yes WC - Visit Discharge Discharge Condition Stable Stable Ambulatory Status Ambulatory, Ambulatory, Walker Walker Transportation Private Auto Private Auto Medication Reconcilliation completed & No No provided to patient/care provider Clinical Summary of Care Provided Yes Yes Additional Wound Wound debrided: Left lateral lower leg Laterality: Left Type of Debridement: Excisional debridement Anesthesia Used: 4% Lidocaine Solution Depth: Down to and including healthy tissue and in the subcutaneous layer Percentage of wound debrided: 100 Instrument Used: - (gauze) Tissue Removed: yellow slough, devitalized tissue Severity: Fat Layer Exposed Amount of bleeding with debridement: Mild Bleeding Controlled with: Compression and gauze Patient tolerated procedure: Patient tolerated procedure well Assessment/Plan Assessment/Plan (1) Ulcer of right lower extremity with fat layer exposed: CODE(S): L97.912 - Non-pressure chronic ulcer of unspecified part of right lower leg with fat layer exposed (2) Ulcer of left lower extremity with fat layer exposed: CODE(S): L97.922 - Non-pressure chronic ulcer of unspecified part of left lower leg with fat layer exposed (3) Edema: CODE(S): R60.9 - Edema, unspecified QUALIFIERS: Edema type: unspecified Qualified Code(s): R60.9 - Edema, unspecified (4) Hypertension: CODE(S): I10 - Essential (primary) hypertension QUALIFIERS: Hypertension type: primary hypertension Qualified Code(s): I10 - Essential (primary) hypertension (5) History of CVA (cerebrovascular accident): CODE(S): Z86.73 - Personal history of transient ischemic attack (TIA), and cerebral infarction without residual deficits (6) Seizure disorder: CODE(S): G40.909 - Epilepsy, unspecified, not intractable, without status epilepticus (7) Chronic L sided weakness: (8) Lymphedema: CODE(S): I89.0 - Lymphedema, not elsewhere classified (9) Chronic pain disorder: CODE(S): G89.4 - Chronic pain syndrome PLAN: Mauriico's ulcers were evaluated and debrided today at the wound healing center. He has been treated since November by his primary care physician using calcium alginate and UNNA boot therapy and he developed significant slough necessitating treatment at the wound healing center for venous stasis ulcers of his bilateral lower extremities to undergo excisional debridement. He tolerated debridement well with aggressive gauze debridement of slough. His ulcers are going to be dressed with Aquacel Extra under UNNA boots for heavy drainage. This will be changed by home health on Tuesday and he will return to the wound center for evaluation and debridement on Tuesday. Will continue to use conventional treatment until authorization from his insurance is received for treatment with advanced wound healing product. He is encouraged to elevate his legs and use lymphedema pumps. We discussed importance of nutrition and increased protein intake for wound healing. He will call if there is increased drainage, erythema, fever, chills, or pain. He will return in 1 week for follow up.
== END 2022-02-06 23:59 | disposition home or self-care (01) ==
LOC: WC 09:00
PROVIDERS: PCP Family Medicine; Visit Provider Family Medicine
DX: L97.912 Non-pressure chronic ulcer of unspecified part of right lower leg with fat layer exposed (principal); L97.922 Non-pressure chronic ulcer of unspecified part of left lower leg with fat layer exposed; G40.909 Epilepsy, unspecified, not intractable, without status epilepticus; R53.1 Weakness; R60.9 Edema, unspecified; I89.0 Lymphedema, not elsewhere classified; I10 Essential (primary) hypertension; G89.4 Chronic pain syndrome; Z86.73 Personal history of transient ischemic attack (TIA), and cerebral infarction without residual deficits
CPT/HCPCS: 11042; 11045; 29580

== ENCOUNTER 2022-02-26 10:00 | Outpatient (RCR) | payer MEDICAID, SELFPAY ==
[2022-02-07 00:43] VITALS: BP 107/48; PULSE 76; RESP 22; TEMP 36.4
[2022-02-12 10:07] VITALS: TEMP 36.2
--- NOTE | 2022-02-12 14:57 | PCM.WC.PN ---
History of Present Illness Date of Service: 02/12/22 Chief Complaint: venous ulcers of bilateral lower extremities History of Wound: Mauricio is a 66 yo gentleman who is here today for evaluation of ulcers to to his bilateral lower legs. He has been treated multiple times in the past at the wound healing center for similar ulcers. The left LE ulcer started after he developed increased swelling and blisters of left leg in September and the right leg started sometime at the end of October He was prescribed Doxycycline in September, October, and November. He denies improvement and is having swelling to left his calf and thigh. He has been having swelling to both lower extremities for many years and it has worsened over the last few months. He has clear yellow drainage and redness without odor or warmth. He is anti-coagulated on coumadin. He has been washing with Dial soap and witch ifrah. He had been using Collagen at times and using Calcium Alginate and covering with gauze during October. He was treated with UNNA boot therapy Since November 19, 2021 using calcium alginate over the ulcers under the UNNA boots. He was referred to the wound center for ongoing treatment as his ulcers have not improved in the last few weeks and slough has increased. His ulcers have moderate drainage. Subjective Subjective Mauricio returns today for follow up of venous ulcers of his bilateral LE. He tolerated treatment with UNNA boot therapy done last week with change on Tuesday. He has had improvement in edema compared to last week. He denies any fever, chills, increased drainage, odor or pain. Objective Data Objective Data Vital Signs: Vital Signs Temp Pulse Resp BP 97.1 F L 76 22 H 107/48 L 02/12/22 10:07 02/07/22 00:43 02/07/22 00:43 02/07/22 00:43 Physical Exam Const alert, oriented x3 and no apparent distress General Appearance: cooperative and comfortable HEENT normocephalic and head/scalp atraumatic Resp normal respiratory effort Effort and Inspection: able to speak in complete sentences Cardio regular rate and regular rhythm Skin Wounds: wounds noted Wound Narrative: as in clinical panel Psych mental status grossly normal, thought process normal, cooperative and affect normal Debridement Note Debridement Note Wound debrided: Right LE medial Laterality: Right Type of Debridement: Selective debridement Anesthesia Used: 4% Lidocaine Solution, 5% Lidocaine Gel and Cetacaine Depth: Down to and including healthy tissue and in the subcutaneous layer Percentage of wound debrided: 100 Instrument Used: - (gauze) Tissue Removed: Yellow slough, devitalized tissue Severity: Fat Layer Exposed Amount of bleeding with debridement: Mild Bleeding Controlled with: Compression and gauze Patient tolerated procedure: Patient tolerated procedure well Post-Debridement Measurements and Additional Note: Post-Debridement Measurements/Treatment - Nurse 1 - General Ulcer Assessment Start: 02/12/22 10:06 Freq: Status: Active Protocol: ONDINA Activity Type Activity Date Activity User E-Sign Co-Sign Detail Recorded Client Recorded Date Recorded By Document 02/12/22 10:07 JOE [id number] 02/12/22 10:14 JOE 02/12/22 10:07 - Today's Visit Information Type of service 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 Any new allergies or adverse reactions No Had a fall/change in ADL's that may No increase risk of falls Signs or symptoms of abuse and/or No neglect since last visit Have you been in the hospital since your No last visit? Has dressing in place as prescribed Yes Has compression in place as prescribed Yes Has offloadiing in place as prescribed N/A Experienced any changes in pain level or No management Left Footwear Regular Shoe Right Footwear Regular Shoe Pain Scale: 0-10 Numeric Is Patient Pain Free? Yes [facility] Nurse 1 - General Ulcer Measurement Start: 02/12/22 10:06 Freq: Status: Active Protocol: Activity Type Activity Date Activity User E-Sign Co-Sign Detail Recorded Client Recorded Date Recorded By Document 02/12/22 10:07 JOE [id number] 02/12/22 10:14 [place] 02/12/22 10:07 Wound Center Nurse 1 14. RLE medial -Combined with other wound No -Photo Taken No -Tunneling No -Undermining/Tunneling No -Circular Undermining No -Classification - Thickness Partial Thickness -Change in Wound Grade/Stage No -Exudate Amt Medium -Exudate Type Serosanguineous -Wound Margin Distinct, Outline Attached -Granulation Amt Large (67-100%) -Granulation Quality N/A,[place] -Slough/Fibrin Yes -Necrosis Amt Medium (34-66%) -Necrotic Tissue Type Adherent Slough -Structure Exposed N/A -Texture (Marie-wound Skin Appearance) No Abnormality, Assessed -Moisture (Marie-wound Skin Appearance) No Abnormality, Assessed -Color (Marie-wound Skin Appearance) No Abnormality, Assessed -Temperature (Marie-wound Skin No Abnormality Appearance) (Pt Warm) -Tenderness on Palpation (Marie-wound No Skin Appearance) -Ulcer Cleansing Soap and Water -Foul Odor after Cleansing No -Anesthetic Used 4% Lidocaine Solution 13. LLE lateral -Combined with other wound No -Current Size (cm) - Length 4.7 -Current Size (cm) - Width 5.2 -Current Size (cm) - Depth 0.1 -Total Square Cm 24.44 -Photo Taken No -Tunneling No -Undermining/Tunneling No -Circular Undermining No -Change in Wound Grade/Stage No -Exudate Amt Medium -Exudate Type Serosanguineous -Wound Margin Distinct, Outline Attached -Granulation Amt Large (67-100%) -Granulation Quality [place] -Slough/Fibrin No -Necrosis Amt Medium (34-66%) -Necrotic Tissue Type Adherent Slough -Structure Exposed N/A -Texture (Marie-wound Skin Appearance) No Abnormality, Assessed -Moisture (Marie-wound Skin Appearance) No Abnormality, Assessed -Color (Marie-wound Skin Appearance) No Abnormality, Assessed -Temperature (Marie-wound Skin No Abnormality Appearance) (Pt Warm) -Tenderness on Palpation (Marie-wound No Skin Appearance) -Ulcer Cleansing Rinsed/ Irrigated with Saline -Foul Odor after Cleansing No -Anesthetic Used 4% Lidocaine Solution Right Calf (cm) 45.5 Right Ankle (cm) 28.2 Left Calf (cm) 43.5 Left Ankle (cm) 29.2 WC - Nurse 2 - General Ulcer CM Notes Start: 02/12/22 10:06 Freq: Status: Active Protocol: Activity Type Activity Date Activity User E-Sign Co-Sign Detail Recorded Client Recorded Date Recorded By Document 02/12/22 11:00 MW [id number] 02/12/22 11:12 MW 02/12/22 11:00 Wound Center Nurse 2 14. RLE medial -Time 11:02 -Correct Patient Yes -Correct Side, Site, Position Yes -Correct Procedure Yes -Procedure Performed Yes -Type of Procedure Debridement -Clinical Debridement Subcutaneous -Tissue Removed Subcutaneous -Post Debridement (cm) - Length 5.2 -Post Debridement (cm) - Width 5.2 -Post Debridement (cm) - Depth 0.1 -Total Square (Post) (cm) 27.04 -Area of Debridement (cm) - Length 5.2 -Area of Debridement (cm) - Width 5.2 -Total Square (Area) (cm) 27.04 -Tunneling No -Undermining/Tunneling No -Circular Undermining No -Wound/Ulcer Outcome Not Healed -Ulcer Cleansing Rinsed/ Irrigated with Saline -Foul Odor after Cleansing No -Bioengineered Tissue No -Bleeding Controlled with Pressure -Treatment Response Procedure Tolerated Well -Offloading No -Debridement - Subq, 1st 20sq cm Yes -Debridement, SubQ, ea addt'l 20sq cm 1 or part thereof 13. LLE lateral -Time 11:03 -Correct Patient Yes -Correct Side, Site, Position Yes -Correct Procedure Yes -Procedure Performed Yes -Type of Procedure Debridement -Clinical Debridement Subcutaneous -Tissue Removed Subcutaneous -Post Debridement (cm) - Length 4.5 -Post Debridement (cm) - Width 2.1 -Post Debridement (cm) - Depth 0.1 -Total Square (Post) (cm) 9.45 -Area of Debridement (cm) - Length 4.5 -Area of Debridement (cm) - Width 2.1 -Total Square (Area) (cm) 9.45 -Tunneling No -Undermining/Tunneling No -Circular Undermining No -Wound/Ulcer Outcome Not Healed -Ulcer Cleansing Rinsed/ Irrigated with Saline -Foul Odor after Cleansing No -Bioengineered Tissue No -Bleeding Controlled with Pressure -Treatment Response Procedure Tolerated Well -Offloading No -Debridement - Subq, 1st 20sq cm No Pain Scale: 0-10 Numeric Is Patient Pain Free? Yes WC - Nurse 3 - General Ulcer D/C NN Start: 02/12/22 10:06 Freq: Status: Active Protocol: Activity Type Activity Date Activity User E-Sign Co-Sign Detail Recorded Client Recorded Date Recorded By Document 02/12/22 11:34 RB [id number] 02/12/22 11:35 RB 02/12/22 11:34 Wound Care Nurse 3 14. RLE medial -Primary Dressing Applied Aquacel Extra -Aquacel Extra 1 13. LLE lateral -Other Dressing unna Bilateral -Multi-Layered Wrap Application Unna Boot - Bilateral ($) -Unna Boots (Bilat) ($) 2 Treatment Response Procedure Tolerated Well Pain Scale: 0-10 Numeric Is Patient Pain Free? Yes WC - Visit Discharge Discharge Condition Stable Ambulatory Status Ambulatory, Walker Transportation Private Auto Medication Reconcilliation completed & No provided to patient/care provider Clinical Summary of Care Provided Yes Additional Wound Wound debrided: Left lateral LE Laterality: Left Type of Debridement: Selective debridement Anesthesia Used: 4% Lidocaine Solution and 5% Lidocaine Gel Depth: Down to and including healthy tissue and in the subcutaneous layer Percentage of wound debrided: 100 Instrument Used: - (gauze) Tissue Removed: Yellow slough, devitalized tissue Severity: Fat Layer Exposed Amount of bleeding with debridement: Mild Bleeding Controlled with: Compression and gauze Patient tolerated procedure: Patient tolerated procedure well Assessment/Plan Assessment/Plan (1) Ulcer of right lower extremity with fat layer exposed: CODE(S): L97.912 - Non-pressure chronic ulcer of unspecified part of right lower leg with fat layer exposed (2) Ulcer of left lower extremity with fat layer exposed: CODE(S): L97.922 - Non-pressure chronic ulcer of unspecified part of left lower leg with fat layer exposed (3) Venous insufficiency: CODE(S): I87.2 - Venous insufficiency (chronic) (peripheral) (4) Edema: CODE(S): R60.9 - Edema, unspecified QUALIFIERS: Edema type: unspecified Qualified Code(s): R60.9 - Edema, unspecified (5) Hypertension: CODE(S): I10 - Essential (primary) hypertension QUALIFIERS: Hypertension type: primary hypertension Qualified Code(s): I10 - Essential (primary) hypertension (6) History of CVA (cerebrovascular accident): CODE(S): Z86.73 - Personal history of transient ischemic attack (TIA), and cerebral infarction without residual deficits (7) History of DVT (deep vein thrombosis): CODE(S): Z86.718 - Personal history of other venous thrombosis and embolism (8) Chronic L sided weakness: (9) History of pulmonary embolism: CODE(S): Z86.711 - Personal history of pulmonary embolism (10) Venous ulcer of left lower extremity with varicose veins: CODE(S): I83.029 - Varicose veins of left lower extremity with ulcer of unspecified site (11) Venous ulcer of both lower extremities with varicose veins: CODE(S): I83.019 - Varicose veins of right lower extremity with ulcer of unspecified site; I83.029 - Varicose veins of left lower extremity with ulcer of unspecified site (12) Venous ulcers of both lower extremities: CODE(S): I87.2 - Venous insufficiency (chronic) (peripheral) (13) Lymphedema: CODE(S): I89.0 - Lymphedema, not elsewhere classified (14) Chronic pain disorder: CODE(S): G89.4 - Chronic pain syndrome PLAN: Mauricio's ulcers were evaluated and debrided today at the wound healing center. He has been treated since November by his primary care physician using calcium alginate and UNNA boot therapy and he developed significant slough necessitating treatment at the wound healing center for venous stasis ulcers of his bilateral lower extremities to undergo excisional debridement. He tolerated debridement well with aggressive gauze debridement of slough. His ulcers are going to be dressed with Aquacel Extra under UNNA boots for heavy drainage. This will be changed by home health on Tuesday and he will return to the wound center for evaluation and debridement on Tuesday. Will continue to use conventional treatment his insurance denied treatment with advanced wound healing product. He is encouraged to elevate his legs and use lymphedema pumps. We discussed importance of nutrition and increased protein intake for wound healing. He will call if there is increased drainage, erythema, fever, chills, or pain. He will return in 1 week for follow up.
[2022-02-19 10:11] VITALS: BP 114/70; PULSE 72; RESP 20; TEMP 36.6
--- NOTE | 2022-02-19 13:00 | PN.PCM_ITS ---
History of Present Illness Date of Service: 02/19/22 Chief Complaint: venous ulcers of bilateral lower extremities History of Wound: Mauricio is a 66 yo gentleman who is here today for evaluation of ulcers to to his bilateral lower legs. He has been treated multiple times in the past at the wound healing center for similar ulcers. The left LE ulcer started after he developed increased swelling and blisters of left leg in September and the right leg started sometime at the end of October He was prescribed Doxycycline in September, October, and November. He denies improvement and is having swelling to left his calf and thigh. He has been having swelling to both lower extremities for many years and it has worsened over the last few months. He has clear yellow drainage and redness without odor or warmth. He is anti- coagulated on coumadin. He has been washing with Dial soap and witch ifrah. He had been using Collagen at times and using Calcium Alginate and covering with gauze during October. He was treated with UNNA boot therapy Since November 19, 2021 using calcium alginate over the ulcers under the UNNA boots. He was referred to the wound center for ongoing treatment as his ulcers have not improved in the last few weeks and slough has increased. His ulcers have moderate drainage. Subjective Subjective Mauricio returns today for follow up of venous ulcers of his bilateral LE. He tolerated treatment with UNNA boot therapy done last week with change on Tuesday. He has had improvement in edema compared to last week. He denies any fever, chills, increased drainage, odor or pain. Objective Data Objective Data Vital Signs: Vital Signs Temp Pulse Resp BP 97.8 F 72 20 H 114/70 02/19/22 10:11 02/19/22 10:11 02/19/22 10:11 02/19/22 10:11 Physical Exam Const alert, oriented x3 and no apparent distress General Appearance: cooperative and comfortable HEENT normocephalic and head/scalp atraumatic Resp normal respiratory effort Effort and Inspection: able to speak in complete sentences Cardio regular rate and regular rhythm Skin Wounds: wounds noted Wound Narrative: as in clinical panel Psych mental status grossly normal, thought process normal, cooperative and affect normal Debridement Note Debridement Note Wound debrided: right medial LE ulcer Laterality: Right Type of Debridement: Selective debridement Anesthesia Used: 4% Lidocaine Solution and 5% Lidocaine Gel Depth: Down to and including healthy tissue and in the subcutaneous layer Percentage of wound debrided: 100 Instrument Used: - (gauze) Tissue Removed: yellow slough, devitalized tissue Severity: Fat Layer Exposed Amount of bleeding with debridement: Mild Bleeding Controlled with: Compression and gauze Patient tolerated procedure: Patient tolerated procedure well Post-Debridement Measurements and Additional Note: Post-Debridement Me asurements/Treatment DEBBIE Berger Nurse 1 - General Ulcer Assessment Start: 02/12/22 10:06 Freq: Status: Active Protocol: ONDINA Activity Type Activity Date Activity User E-Sign Co-Sign Detail Recorded Client Recorded Date Recorded By Document 02/12/22 10:07 AK [id number] 02/12/22 10:14 AK Document 02/19/22 10:11 MW [id number] 02/19/22 10:16 MW 02/12/22 02/19/22 10:07 10:11 DEBBIE - Today's Visit Information Type of service Follow-up Visit Follow-up Visit (Physician/WOMEN'S HEALTH CARE NURSE PRACTITIONER (Physician/WOMEN'S HEALTH CARE NURSE PRACTITIONER ) ) Arrival Mode Ambulatory, Ambulatory, Walker Walker Transfer Assistance None Patient Identification Verified (Name & Yes Yes ) Patient Requires Transmission-Based No No Precautions Safety Precautions NA Vital Signs Temperature (97.8 F-99.1 F) 97.1 F L 97.8 F Temperature Source Temporal Temporal Pulse Rate (60-100) 72 Pulse Location Monitor Respiratory Rate (12-18) 20 H Respiratory rate source Observation Blood Pressure (90/60-120/80) 114/70 Blood Pressure Mean (mm Hg) 84 Source Monitor History Since Last Visit- (Skip if this is Patient's initial visit) Have you changed medications since your No No last visit? Any new allergies or adverse reactions No No Had a fall/change in ADL's that may No No increase risk of falls Signs or symptoms of abuse and/or No No neglect since last visit Have you been in the hospital since your No No last visit? Has dressing in place as prescribed Yes Yes Has compression in place as prescribed Yes Yes Has offloadiing in place as prescribed N/A N/A Experienced any changes in pain level or No No management Left Footwear Regular Shoe Right Footwear Regular Shoe Pain Scale: 0-10 Numeric Is Patient Pain Free? Yes Yes DEBBIE Berger Nurse 1 - General Ulcer Measurement Start: 02/12/22 10:06 Freq: Status: Active Protocol: Activity Type Activity Date Activity User E-Sign Co-Sign Detail Recorded Client Recorded Date Recorded By Document 02/12/22 10:07 AK [id number] 02/12/22 10:14 AK Document 02/19/22 10:11 MW [id number] 02/19/22 10:16 MW 02/12/22 02/19/22 10:07 10:11 Wound Center Nurse 1 14. RLE medial -Combined with other wound No -Current Size (cm) - Length 5 -Current Size (cm) - Width 4.5 -Current Size (cm) - Depth 0.1 -Total Square Cm 22.5 -Photo Taken No No -Tunneling No -Undermining/Tunneling No -Circular Undermining No -Classification - Thickness Partial Thickness -Change in Wound Grade/Stage No -Exudate Amt Medium Medium -Exudate Type Serosanguineous Serosanguineous -Wound Margin Distinct, Distinct, Outline Outline Attached Attached -Granulation Amt Large (67-100%) Medium (34-66%) -Granulation Quality N/A,[place],Red -Slough/Fibrin Yes -Necrosis Amt Medium (34-66%) Medium (34-66%) -Necrotic Tissue Type Adherent Slough Adherent Slough -Structure Exposed N/A N/A -Texture (Marie-wound Skin Appearance) No Abnormality, Scarring Assessed -Moisture (Marie-wound Skin Appearance) No Abnormality, No Abnormality Assessed -Color (Marie-wound Skin Appearance) No Abnormality, Hemosiderin Assessed Staining -Temperature (Marie-wound Skin No Abnormality No Abnormality Appearance) (Pt Warm) (Pt Warm) -Tenderness on Palpation (Marie-wound No Skin Appearance) -Ulcer Cleansing Soap and Water -Foul Odor after Cleansing No -Anesthetic Used 4% Lidocaine 5% Lidocaine Solution Gel 13. LLE lateral -Combined with other wound No -Current Size (cm) - Length 4.7 2 -Current Size (cm) - Width 5.2 1.5 -Current Size (cm) - Depth 0.1 0.1 -Total Square Cm 24.44 3.0 -Photo Taken No No -Tunneling No -Undermining/Tunneling No -Circular Undermining No -Change in Wound Grade/Stage No -Exudate Amt Medium Medium -Exudate Type Serosanguineous Serosanguineous -Wound Margin Distinct, Distinct, Outline Outline Attached Attached -Granulation Amt Large (67-100%) Large (67-100%) -Granulation Quality [place] Red -Slough/Fibrin No -Necrosis Amt Medium (34-66%) Small (1-33%) -Necrotic Tissue Type Adherent Slough Adherent Slough -Structure Exposed N/A N/A -Texture (Marie-wound Skin Appearance) No Abnormality, Scarring Assessed -Moisture (Marie-wound Skin Appearance) No Abnormality, No Abnormality Assessed -Color (Marie-wound Skin Appearance) No Abnormality, Hemosiderin Assessed Staining -Temperature (Marie-wound Skin No Abnormality Appearance) (Pt Warm) -Tenderness on Palpation (Marie-wound No No Skin Appearance) -Ulcer Cleansing Rinsed/ Not Cleansed Irrigated with Saline -Foul Odor after Cleansing No No -Anesthetic Used 4% Lidocaine 5% Lidocaine Solution Gel Right Calf (cm) 45.5 45 Right Ankle (cm) 28.2 30 Left Calf (cm) 43.5 46.3 Left Ankle (cm) 29.2 32 WC - Nurse 2 - General Ulcer CM Notes Start: 02/12/22 10:06 Freq: Status: Active Protocol: Activity Type Activity Date Activity User E-Sign Co-Sign Detail Recorded Client Recorded Date Recorded By Document 02/12/22 11:00 MW [id number] 02/12/22 11:12 MW Document 02/19/22 10:30 MW [id number] 02/19/22 10:50 MW 02/12/22 02/19/22 11:00 10:30 Wound Center Nurse 2 14. RLE medial -Time 11:02 10:31 -Correct Patient Yes Yes -Correct Side, Site, Position Yes Yes -Correct Procedure Yes Yes -Procedure Performed Yes Yes -Type of Procedure Debridement Debridement -Clinical Debridement Subcutaneous Subcutaneous -Tissue Removed Subcutaneous Subcutaneous -Post Debridement (cm) - Length 5.2 4.5 -Post Debridement (cm) - Width 5.2 4.8 -Post Debridement (cm) - Depth 0.1 0.1 -Total Square (Post) (cm) 27.04 21.60 -Area of Debridement (cm) - Length 5.2 4.5 -Area of Debridement (cm) - Width 5.2 4.8 -Total Square (Area) (cm) 27.04 21.60 -Tunneling No No -Undermining/Tunneling No No -Circular Undermining No No -Wound/Ulcer Outcome Not Healed Not Healed -Ulcer Cleansing Rinsed/ Rinsed/ Irrigated with Irrigated with Saline Saline -Foul Odor after Cleansing No No -Bioengineered Tissue No No -Bleeding Controlled with Pressure Pressure -Treatment Response Procedure Procedure Tolerated Well Tolerated Well -Offloading No No -Debridement - Subq, 1st 20sq cm Yes Yes -Debridement, SubQ, ea addt'l 20sq cm 1 1 or part thereof 13. LLE lateral -Time 11:03 10:32 -Correct Patient Yes Yes -Correct Side, Site, Position Yes Yes -Correct Procedure Yes Yes -Procedure Performed Yes Yes -Type of Procedure Debridement Debridement -Clinical Debridement Subcutaneous Subcutaneous -Tissue Removed Subcutaneous Subcutaneous -Post Debridement (cm) - Length 4.5 2.0 -Post Debridement (cm) - Width 2.1 1.8 -Post Debridement (cm) - Depth 0.1 0.1 -Total Square (Post) (cm) 9.45 3.60 -Area of Debridement (cm) - Length 4.5 2.0 -Area of Debridement (cm) - Width 2.1 1.8 -Total Square (Area) (cm) 9.45 3.60 -Tunneling No No -Undermining/Tunneling No No -Circular Undermining No No -Wound/Ulcer Outcome Not Healed Not Healed -Ulcer Cleansing Rinsed/ Rinsed/ Irrigated with Irrigated with Saline Saline -Foul Odor after Cleansing No No -Bioengineered Tissue No No -Bleeding Controlled with Pressure Pressure -Treatment Response Procedure Procedure Tolerated Well Tolerated Well -Offloading No No -Debridement - Subq, 1st 20sq cm No No Pain Scale: 0-10 Numeric Is Patient Pain Free? Yes Yes WC - Nurse 3 - General Ulcer D/C NN Start: 02/12/22 10:06 Freq: Status: Active Protocol: Activity Type Activity Date Activity User E-Sign Co-Sign Detail Recorded Client Recorded Date Recorded By Document 02/12/22 11:34 RB [id number] 02/12/22 11:35 RB Document 02/19/22 11:21 RB [id number] 02/19/22 11:23 RB 02/12/22 02/19/22 11:34 11:21 Wound Care Nurse 3 14. RLE medial -Primary Dressing Applied Aquacel Extra -Other Dressing unna -Aquacel Extra 1 13. LLE lateral -Other Dressing unna unna Bilateral -Multi-Layered Wrap Application Unna Boot - Unna Boot - Bilateral ($) Bilateral ($) -Unna Boots (Bilat) ($) 2 2 Treatment Response Procedure Procedure Tolerated Well Tolerated Well Pain Scale: 0-10 Numeric Is Patient Pain Free? Yes Yes WC - Visit Discharge Discharge Condition Stable Stable Ambulatory Status Ambulatory, Ambulatory, Walker Walker Transportation Private Auto Private Auto Medication Reconcilliation completed & No No provided to patient/care provider Clinical Summary of Care Provided Yes Yes Additional Wound Wound debrided: Left lateral LE ulcer Laterality: Left Type of Debridement: Selective debridement Anesthesia Used: 4% Lidocaine Solution and 5% Lidocaine Gel Depth: Down to and including healthy tissue and in the subcutaneous layer Percentage of wound debrided: 100 Instrument Used: - (gauze) Tissue Removed: yellow slough, devitalized tissue Severity: Fat Layer Exposed Amount of bleeding with debridement: Mild Bleeding Controlled with: Compression and gauze Patient tolerated procedure: Patient tolerated procedure well Assessment/Plan Assessment/Plan (1) Ulcer of right lower extremity with fat layer exposed: CODE(S): L97.912 - Non-pressure chronic ulcer of unspecified part of right lower leg with fat layer exposed (2) Ulcer of left lower extremity with fat layer exposed: CODE(S): L97.922 - Non-pressure chronic ulcer of unspecified part of left lower leg with fat layer exposed (3) Venous insufficiency: CODE(S): I87.2 - Venous insufficiency (chronic) (peripheral) (4) Edema: CODE(S): R60.9 - Edema, unspecified QUALIFIERS: Edema type: unspecified Qualified Code(s): R60.9 - Edema, unspecified (5) Hypertension: CODE(S): I10 - Essential (primary) hypertension QUALIFIERS: Hypertension type: primary hypertension Qualified Code(s): I10 - Essential (primary) hypertension (6) History of CVA (cerebrovascular accident): CODE(S): Z86.73 - Personal history of transient ischemic attack (TIA), and cerebral infarction without residual deficits (7) History of DVT (deep vein thrombosis): CODE(S): Z86.718 - Personal history of other venous thrombosis and embolism (8) Chronic L sided weakness: (9) History of pulmonary embolism: CODE(S): Z86.711 - Personal history of pulmonary embolism (10) Venous ulcer of left lower extremity with varicose veins: CODE(S): I83.029 - Varicose veins of left lower extremity with ulcer of unspecified site (11) Venous ulcer of both lower extremities with varicose veins: CODE(S): I83.019 - Varicose veins of right lower extremity with ulcer of unspecified site; I83.029 - Varicose veins of left lower extremity with ulcer of unspecified site (12) Venous ulcers of both lower extremities: CODE(S): I87.2 - Venous insufficiency (chronic) (peripheral) (13) Lymphedema: CODE(S): I89.0 - Lymphedema, not elsewhere classified (14) Chronic pain disorder: CODE(S): G89.4 - Chronic pain syndrome PLAN: Mauricio's ulcers were evaluated and debrided today at the wound healing center. He has been treated since November by his primary care physician using calcium alginate and UNNA boot therapy and he developed significant slough necessitating treatment at the wound healing center for venous stasis ulcers of his bilateral lower extremities to undergo excisional debridement. He tolerated debridement well with aggressive gauze debridement of slough. His ulcers are going to be dressed with UNNA boots for heavy drainage. This will be changed by home health on Tuesday and he will return to the wound center for evaluation and debridement on Tuesday. Will continue to use conventional treatment his insurance denied treatment with advanced wound healing product. He is encouraged to elevate his legs and use lymphedema pumps. We discussed importance of nutrition and increased protein intake for wound healing. He will call if there is increased drainage, erythema, fever, chills, or pain. He will return in 1 week for follow up.
[2022-02-26 10:07] VITALS: RESP 18; TEMP 36.4
--- NOTE | 2022-02-26 13:54 | PCM.WC.PN ---
History of Present Illness Date of Service: 02/26/22 Chief Complaint: venous ulcers of bilateral lower extremities History of Wound: Mauricio is a 66 yo gentleman who is here today for evaluation of ulcers to to his bilateral lower legs. He has been treated multiple times in the past at the wound healing center for similar ulcers. The left LE ulcer started after he developed increased swelling and blisters of left leg in September and the right leg started sometime at the end of October He was prescribed Doxycycline in September, October, and November. He denies improvement and is having swelling to left his calf and thigh. He has been having swelling to both lower extremities for many years and it has worsened over the last few months. He has clear yellow drainage and redness without odor or warmth. He is anti-coagulated on coumadin. He has been washing with Dial soap and witch ifrah. He had been using Collagen at times and using Calcium Alginate and covering with gauze during October. He was treated with UNNA boot therapy Since November 19, 2021 using calcium alginate over the ulcers under the UNNA boots. He was referred to the wound center for ongoing treatment as his ulcers have not improved in the last few weeks and slough has increased. His ulcers have moderate drainage. Subjective Subjective Mauricio returns today for follow up of venous ulcers of his bilateral LE. He tolerated treatment with UNNA boot therapy done last week with change on Tuesday. His edema is stable compared to last week. He denies any fever, chills, increased drainage, odor or pain. Objective Data Objective Data Vital Signs: Vital Signs Temp Pulse Resp BP 97.6 F L 72 18 114/70 02/26/22 10:02/19/22 10:11 02/26/22 10:02/19/22 10:11 Physical Exam Const alert, oriented x3 and no apparent distress General Appearance: cooperative and comfortable HEENT normocephalic and head/scalp atraumatic Resp normal respiratory effort Effort and Inspection: able to speak in complete sentences Cardio regular rate and regular rhythm Skin Wounds: wounds noted Wound Narrative: as in clinical panel Psych mental status grossly normal, thought process normal, cooperative and affect normal Debridement Note Debridement Note Wound debrided: Right LE medial Laterality: Right Type of Debridement: Excisional debridement Anesthesia Used: 4% Lidocaine Solution, 5% Lidocaine Gel and Cetacaine Depth: Down to and including healthy tissue and in the subcutaneous layer Percentage of wound debrided: 100 Instrument Used: 3mm curette Tissue Removed: Yellow slough, devitalized tissue Severity: Fat Layer Exposed Amount of bleeding with debridement: Mild Bleeding Controlled with: Compression and gauze Patient tolerated procedure: Patient tolerated procedure well Post-Debridement Measurements and Additional Note: Post-Debridement Measurements/Treatment DEBBIE - Nurse 1 - General Ulcer Assessment Start: 02/12/22 10:06 Freq: Status: Active Protocol: ONDINA Activity Type Activity Date Activity User E-Sign Co-Sign Detail Recorded Client Recorded Date Recorded By Document 02/12/22 10:07 AK [id number] 02/12/22 10:14 AK Document 02/19/22 10:11 MW [id number] 02/19/22 10:16 MW Document 02/26/22 10:07 JF [id number] 02/26/22 10:17 JF 02/12/22 02/19/22 02/26/22 10:07 10:11 10:07 - Today's Visit Information Type of service Follow-up Visit Follow-up Visit Follow-up Visit (Physician/MACHINIST WOOD (Physician/MACHINIST WOOD (Physician/MACHINIST WOOD ) ) ) Arrival Mode Ambulatory, Ambulatory, Ambulatory Walker Walker Transfer Assistance None Patient Identification Verified (Name & Yes Yes Yes ) Patient Requires Transmission-Based No No No Precautions Safety Precautions NA Vital Signs Temperature (97.8 F-99.1 F) 97.1 F L 97.8 F 97.6 F L Temperature Source Temporal Temporal Temporal Pulse Rate (60-100) 72 Pulse Location Monitor Respiratory Rate (12-18) 20 H 18 Respiratory rate source Observation Observation Blood Pressure (90/60-120/80) 114/70 Blood Pressure Mean (mm Hg) 84 Source Monitor History Since Last Visit- (Skip if this is Patient's initial visit) Have you changed medications since your No No No last visit? Any new allergies or adverse reactions No No No Had a fall/change in ADL's that may No No No increase risk of falls Signs or symptoms of abuse and/or No No No neglect since last visit Have you been in the hospital since your No No No last visit? Has dressing in place as prescribed Yes Yes Yes Has compression in place as prescribed Yes Yes Yes Has offloadiing in place as prescribed N/A N/A N/A Experienced any changes in pain level or No No No management Left Footwear Regular Shoe Regular Shoe Right Footwear Regular Shoe Regular Shoe Pain Scale: 0-10 Numeric Is Patient Pain Free? Yes Yes Yes WC - Nurse 1 - General Ulcer Measurement Start: 02/12/22 10:06 Freq: Status: Active Protocol: Activity Type Activity Date Activity User E-Sign Co-Sign Detail Recorded Client Recorded Date Recorded By Document 02/12/22 10:07 AK [id number] 02/12/22 10:14 AK Document 02/19/22 10:11 MW [id number] 02/19/22 10:16 MW Document 02/26/22 10:07 JF [id number] 02/26/22 10:17 JF 02/12/22 02/19/22 02/26/22 10:07 10:11 10:07 Wound Center Nurse 1 14. RLE medial -Combined with other wound No No -Current Size (cm) - Length 5 3.8 -Current Size (cm) - Width 4.5 4.4 -Current Size (cm) - Depth 0.1 0.1 -Total Square Cm 22.5 16.72 -Photo Taken No No Yes -Epithelialization Large 67-100% -Tunneling No No -Undermining/Tunneling No No -Circular Undermining No No -Classification - Thickness Partial Thickness -Change in Wound Grade/Stage No -Exudate Amt Medium Medium Small -Exudate Type Serosanguineous Serosanguineous Serosanguineous -Wound Margin Distinct, Distinct, Flat & Intact Outline Outline Attached Attached -Granulation Amt Large (67-100%) Medium (34-66%) Medium (34-66%) -Granulation Quality N/A,Pentwater Pentwater,Red Red -Slough/Fibrin Yes Yes -Necrosis Amt Medium (34-66%) Medium (34-66%) Medium (34-66%) -Necrotic Tissue Type Adherent Slough Adherent Slough Adherent Slough -Structure Exposed N/A N/A N/A -Texture (Marie-wound Skin Appearance) No Abnormality, Scarring Assessed, Assessed Localized Edema -Moisture (Marie-wound Skin Appearance) No Abnormality, No Abnormality Assessed,Dry/ Assessed Scaly -Color (Marie-wound Skin Appearance) No Abnormality, Hemosiderin Assessed, Assessed Staining Hemosiderin Staining -Temperature (Marie-wound Skin No Abnormality No Abnormality No Abnormality Appearance) (Pt Warm) (Pt Warm) (Pt Warm) -Tenderness on Palpation (Marie-wound No No Skin Appearance) -Ulcer Cleansing Soap and Water Rinsed/ Irrigated with Saline -Foul Odor after Cleansing No No -Anesthetic Used 4% Lidocaine 5% Lidocaine 4% Lidocaine Solution Gel Solution 13. LLE lateral -Combined with other wound No No -Current Size (cm) - Length 4.7 2 1.5 -Current Size (cm) - Width 5.2 1.5 0.9 -Current Size (cm) - Depth 0.1 0.1 0.1 -Total Square Cm 24.44 3.0 1.35 -Photo Taken No No Yes -Epithelialization Medium 34-66% -Tunneling No No -Undermining/Tunneling No No -Circular Undermining No No -Change in Wound Grade/Stage No -Exudate Amt Medium Medium Medium -Exudate Type Serosanguineous Serosanguineous Serosanguineous -Wound Margin Distinct, Distinct, Flat & Intact Outline Outline Attached Attached -Granulation Amt Large (67-100%) Large (67-100%) Medium (34-66%) -Granulation Quality Pentwater Red Red -Slough/Fibrin No Yes -Necrosis Amt Medium (34-66%) Small (1-33%) Small (1-33%) -Necrotic Tissue Type Adherent Slough Adherent Slough Adherent Slough -Structure Exposed N/A N/A N/A -Texture (Marie-wound Skin Appearance) No Abnormality, Scarring Assessed, Assessed Localized Edema -Moisture (Marie-wound Skin Appearance) No Abnormality, No Abnormality Assessed,Dry/ Assessed Scaly -Color (Amrie-wound Skin Appearance) No Abnormality, Hemosiderin Assessed, Assessed Staining Hemosiderin Staining -Temperature (Marie-wound Skin No Abnormality No Abnormality Appearance) (Pt Warm) (Pt Warm) -Tenderness on Palpation (Marie-wound No No No Skin Appearance) -Ulcer Cleansing Rinsed/ Not Cleansed Rinsed/ Irrigated with Irrigated with Saline Saline -Foul Odor after Cleansing No No No -Anesthetic Used 4% Lidocaine 5% Lidocaine 4% Lidocaine Solution Gel Solution Lower Limb Edema Present Yes Right Calf (cm) 45.5 45 44.6 Right Ankle (cm) 28.2 30 30.5 Left Calf (cm) 43.5 46.3 44.5 Left Ankle (cm) 29.2 32 30.2 WC - Nurse 2 - General Ulcer CM Notes Start: 02/12/22 10:06 Freq: Status: Active Protocol: Activity Type Activity Date Activity User E-Sign Co-Sign Detail Recorded Client Recorded Date Recorded By Document 02/12/22 11:00 MW [id number] 02/12/22 11:12 MW Document 02/19/22 10:30 MW [id number] 02/19/22 10:50 MW Document 02/26/22 10:27 MW [id number] 02/26/22 10:49 MW 02/12/22 02/19/22 02/26/22 11:00 10:30 10:27 Wound Center Nurse 2 14. RLE medial -Time 11:02 10:31 10:27 -Correct Patient Yes Yes Yes -Correct Side, Site, Position Yes Yes Yes -Correct Procedure Yes Yes Yes -Procedure Performed Yes Yes Yes -Type of Procedure Debridement Debridement Debridement -Clinical Debridement Subcutaneous Subcutaneous Subcutaneous -Tissue Removed Subcutaneous Subcutaneous Subcutaneous -Post Debridement (cm) - Length 5.2 4.5 4.1 -Post Debridement (cm) - Width 5.2 4.8 5.0 -Post Debridement (cm) - Depth 0.1 0.1 0.1 -Total Square (Post) (cm) 27.04 21.60 20.50 -Area of Debridement (cm) - Length 5.2 4.5 4.1 -Area of Debridement (cm) - Width 5.2 4.8 5.0 -Total Square (Area) (cm) 27.04 21.60 20.50 -Tunneling No No No -Undermining/Tunneling No No No -Circular Undermining No No No -Wound/Ulcer Outcome Not Healed Not Healed Not Healed -Ulcer Cleansing Rinsed/ Rinsed/ Rinsed/ Irrigated with Irrigated with Irrigated with Saline Saline Saline -Foul Odor after Cleansing No No No -Bioengineered Tissue No No No -Bleeding Controlled with Pressure Pressure Pressure -Treatment Response Procedure Procedure Procedure Tolerated Well Tolerated Well Tolerated Well -Offloading No No No -Debridement - Subq, 1st 20sq cm Yes Yes Yes -Debridement, SubQ, ea addt'l 20sq cm 1 1 1 or part thereof 13. LLE lateral -Time 11:03 10:32 10:28 -Correct Patient Yes Yes Yes -Correct Side, Site, Position Yes Yes Yes -Correct Procedure Yes Yes Yes -Procedure Performed Yes Yes Yes -Type of Procedure Debridement Debridement Debridement -Clinical Debridement Subcutaneous Subcutaneous Subcutaneous -Tissue Removed Subcutaneous Subcutaneous Subcutaneous -Post Debridement (cm) - Length 4.5 2.0 1.5 -Post Debridement (cm) - Width 2.1 1.8 0.9 -Post Debridement (cm) - Depth 0.1 0.1 0.1 -Total Square (Post) (cm) 9.45 3.60 1.35 -Area of Debridement (cm) - Length 4.5 2.0 1.5 -Area of Debridement (cm) - Width 2.1 1.8 0.9 -Total Square (Area) (cm) 9.45 3.60 1.35 -Tunneling No No No -Undermining/Tunneling No No No -Circular Undermining No No No -Wound/Ulcer Outcome Not Healed Not Healed Not Healed -Ulcer Cleansing Rinsed/ Rinsed/ Rinsed/ Irrigated with Irrigated with Irrigated with Saline Saline Saline -Foul Odor after Cleansing No No No -Bioengineered Tissue No No No -Bleeding Controlled with Pressure Pressure Pressure -Treatment Response Procedure Procedure Procedure Tolerated Well Tolerated Well Tolerated Well -Offloading No No No -Debridement - Subq, 1st 20sq cm No No No Pain Scale: 0-10 Numeric Is Patient Pain Free? Yes Yes Yes WC - Nurse 3 - General Ulcer D/C NN Start: 02/12/22 10:06 Freq: Status: Active Protocol: Activity Type Activity Date Activity User E-Sign Co-Sign Detail Recorded Client Recorded Date Recorded By Document 02/12/22 11:34 RB [id number] 02/12/22 11:35 RB Document 02/19/22 11:21 RB [id number] 02/19/22 11:23 RB Document 02/26/22 12:23 RB [id number] 02/26/22 12:24 RB 02/12/22 02/19/22 02/26/22 11:34 11:21 12:23 Wound Care Nurse 3 14. RLE medial -Primary Dressing Applied Aquacel Extra -Other Dressing unna unna boot -Aquacel Extra 1 13. LLE lateral -Other Dressing unna unna unna boot Bilateral -Multi-Layered Wrap Application Unna Boot - Unna Boot - Unna Boot - Bilateral ($) Bilateral ($) Bilateral ($) -Unna Boots (Bilat) ($) 2 2 2 Treatment Response Procedure Procedure Procedure Tolerated Well Tolerated Well Tolerated Well Pain Scale: 0-10 Numeric Is Patient Pain Free? Yes Yes Yes Teaching: Wound Center Compression Wraps & Stockings -Person Taught Patient -Teaching Method Discussion -Response to teaching Verbalize understanding WC - Visit Discharge Discharge Condition Stable Stable Stable Ambulatory Status Ambulatory, Ambulatory, Ambulatory, Walker Walker Walker Transportation Private Auto Private Auto Private Auto Medication Reconcilliation completed & No No No provided to patient/care provider Clinical Summary of Care Provided Yes Yes Yes Additional Wound Wound debrided: LLE lateral Laterality: Left Type of Debridement: Excisional debridement Anesthesia Used: 4% Lidocaine Solution, 5% Lidocaine Gel and Cetacaine Depth: Down to and including healthy tissue and in the subcutaneous layer Percentage of wound debrided: 100 Instrument Used: 3mm curette Tissue Removed: Yellow slough, devitalized tissue Severity: Fat Layer Exposed Amount of bleeding with debridement: Mild Bleeding Controlled with: Compression and gauze Patient tolerated procedure: Patient tolerated procedure well Assessment/Plan Assessment/Plan (1) Ulcer of right lower extremity with fat layer exposed: CODE(S): L97.912 - Non-pressure chronic ulcer of unspecified part of right lower leg with fat layer exposed (2) Ulcer of left lower extremity with fat layer exposed: CODE(S): L97.922 - Non-pressure chronic ulcer of unspecified part of left lower leg with fat layer exposed (3) Venous insufficiency: CODE(S): I87.2 - Venous insufficiency (chronic) (peripheral) (4) Edema: CODE(S): R60.9 - Edema, unspecified QUALIFIERS: Edema type: unspecified Qualified Code(s): R60.9 - Edema, unspecified (5) Hypertension: CODE(S): I10 - Essential (primary) hypertension QUALIFIERS: Hypertension type: primary hypertension Qualified Code(s): I10 - Essential (primary) hypertension (6) History of CVA (cerebrovascular accident): CODE(S): Z86.73 - Personal history of transient ischemic attack (TIA), and cerebral infarction without residual deficits (7) History of DVT (deep vein thrombosis): CODE(S): Z86.718 - Personal history of other venous thrombosis and embolism (8) Chronic L sided weakness: (9) History of pulmonary embolism: CODE(S): Z86.711 - Personal history of pulmonary embolism (10) Venous ulcer of left lower extremity with varicose veins: CODE(S): I83.029 - Varicose veins of left lower extremity with ulcer of unspecified site (11) Venous ulcer of both lower extremities with varicose veins: CODE(S): I83.019 - Varicose veins of right lower extremity with ulcer of unspecified site; I83.029 - Varicose veins of left lower extremity with ulcer of unspecified site (12) Venous ulcers of both lower extremities: CODE(S): I87.2 - Venous insufficiency (chronic) (peripheral) (13) Lymphedema: CODE(S): I89.0 - Lymphedema, not elsewhere classified (14) Chronic pain disorder: CODE(S): G89.4 - Chronic pain syndrome PLAN: Mauricio's ulcers were evaluated and debrided today at the wound healing center. He has been treated since November by his primary care physician using calcium alginate and UNNA boot therapy and he developed significant slough necessitating treatment at the wound healing center for venous stasis ulcers of his bilateral lower extremities to undergo excisional debridement. He tolerated debridement well. His ulcers are going to be dressed with UNNA boots for heavy drainage. This will be changed by home health on Tuesday, Tuesday and Tuesday and he will return to the wound center for evaluation and debridement on Tuesday. Will continue to use conventional treatment his insurance denied treatment with advanced wound healing product. He is encouraged to elevate his legs and use lymphedema pumps. We discussed importance of nutrition and increased protein intake for wound healing. He will call if there is increased drainage, erythema, fever, chills, or pain. He will return in 2 weeks for follow up.
== END 2022-03-09 23:59 | disposition home or self-care (01) ==
LOC: WC 10:00
PROVIDERS: PCP Family Medicine; Visit Provider Family Medicine
DX: L97.922 Non-pressure chronic ulcer of unspecified part of left lower leg with fat layer exposed (principal); L97.912 Non-pressure chronic ulcer of unspecified part of right lower leg with fat layer exposed; I83.019 Varicose veins of right lower extremity with ulcer of unspecified site; I83.029 Varicose veins of left lower extremity with ulcer of unspecified site; I87.2 Venous insufficiency (chronic) (peripheral); R60.9 Edema, unspecified; G89.4 Chronic pain syndrome; R53.1 Weakness; I83.93 Asymptomatic varicose veins of bilateral lower extremities; I89.0 Lymphedema, not elsewhere classified; I10 Essential (primary) hypertension; Z86.73 Personal history of transient ischemic attack (TIA), and cerebral infarction without residual deficits; Z86.718 Personal history of other venous thrombosis and embolism; Z86.711 Personal history of pulmonary embolism
CPT/HCPCS: 11042; 11045; 29580

== ENCOUNTER 2022-03-10 15:17 | Outpatient (RCR) | payer MEDICAID, SELFPAY ==
[2022-03-10 16:11] LABS: International Normalized Ratio 2.2; Prothrombin Time (Protime)PT. 24.3 SECONDS (11.7-14.9)
== END 2022-04-08 23:59 ==
LOC: HHLAB 15:17
PROVIDERS: PCP Family Medicine; Visit Provider Family Medicine
DX: I87.2 Venous insufficiency (chronic) (peripheral) (principal); L97.811 Non-pressure chronic ulcer of other part of right lower leg limited to breakdown of skin
CPT/HCPCS: 85610

== ENCOUNTER → 2022-03-23 | Outpatient (CLI) | payer MEDICAID, SELFPAY ==
[2022-03-23 12:21] LABS: Absolute Lymphocyte Count 1.33 X10^3/uL (0.83-4.51); Absolute Neutrophil Count 1.7 X10^3/uL (2.0-7.7); Basophil# 0.03 X10^3/uL; Basophil% 0.9 % (0-1); Eosinophils% 2.9 % (0-5); Hematocrit 47.5 % (40-54); Hemoglobin 15.2 g/dL (13.0-16.5); Lymphocyte # 1.33 X10^3/ul (0.83-4.51); Mean Corpuscular Hgb 31.3 pg (27.0-32.0); Mean Corpuscular Volume 97.7 fL (80-94); Monocyte# 0.33 X10^3/uL; Monocyte% 9.4 % (0-10); NRBC Flagged by Analyzer 0 % (0-5); Neutrophil % 48.5 % (47-70); Platelet Count 225 K/mm3 (150-450); RBC Distribution Width CV 14.2 % (11.6-14.6); RBC Distribution Width SD 51.2 fl (35.1-43.9); Red Blood Count 4.86 M/mm3 (4.6-6.2); White Blood Count 3.5 K/mm3 (4.4-11.0)
[2022-03-23 13:09] LABS: Vitamin D,25 Hydroxy 25.7 ng/mL
[2022-03-23 13:22] LABS: ALB/GLOB Ratio 1.1 RATIO (0.9-2.4); AST(SGOT) 12 U/L (15-37); Alanine Aminotransfer ALT/SGPT 24 U/L (16-61); Albumin, Serum 3.8 g/dL (3.2-5.0); Alkaline Phosphatase 94 U/L (45-117); Anion Gap 6 (5-15); BUN 16 mg/dL (7-18); Calcium,Total 8.9 mg/dL (8.5-10.1); Chloride 105 mmol/L (98-107); Cholesterol 235 mg/dL (200); Creatinine, Serum 0.84 mg/dL (0.70-1.30); EST Glomerular Filtration Rate 97 mL/min (>60); Est Glom Filt Rate - Afr Amer 118 mL/min (>60); Globulin 3.6 g/dL (2.2-4.2); Glucose 88 mg/dL (74-106); High Density Lipoprotein 79 mg/dL; Potassium 3.8 mmol/L (3.5-5.1); Protein, Total 7.4 g/dL (6.4-8.2); Sodium Level 140 mmol/L (136-145); Thyroid Stim Hormone (TSH) 2.78 uIU/mL (0.358-3.74); Triglycerides 71 mg/dL; Very Low Density Lipoprotein 14 mg/dL (5-40)
== END | disposition home or self-care (01) ==
LOC: HHLAB 10:48
PROVIDERS: PCP Family Medicine; Visit Provider Family Medicine
DX: E55.9 Vitamin D deficiency, unspecified (principal); R53.83 Other fatigue; Z51.81 Encounter for therapeutic drug level monitoring
CPT/HCPCS: 80053; 80061; 82306; 84443; 85025

== ENCOUNTER 2022-04-02 09:30 | Outpatient (RCR) | payer MEDICAID, SELFPAY ==
[2022-03-10 01:02] VITALS: BP 114/70; PULSE 72; RESP 18; TEMP 36.4
[2022-03-12 09:22] VITALS: BP 127/70; PULSE 65; RESP 16; TEMP 36.4
--- NOTE | 2022-03-12 13:28 | PN.PCM_ITS ---
History of Present Illness Date of Service: 03/12/22 Chief Complaint: venous ulcers of bilateral lower extremities History of Wound: Mauricio is a 66 yo gentleman who is here today for evaluation of ulcers to to his bilateral lower legs. He has been treated multiple times in the past at the wound healing center for similar ulcers. The left LE ulcer started after he developed increased swelling and blisters of left leg in September and the right leg started sometime at the end of October He was prescribed Doxycycline in September, October, and November. He denies improvement and is having swelling to left his calf and thigh. He has been having swelling to both lower extremities for many years and it has worsened over the last few months. He has clear yellow drainage and redness without odor or warmth. He is anti- coagulated on coumadin. He has been washing with Dial soap and witch ifrah. He had been using Collagen at times and using Calcium Alginate and covering with gauze during October. He was treated with UNNA boot therapy Since November 19, 2021 using calcium alginate over the ulcers under the UNNA boots. He was referred to the wound center for ongoing treatment as his ulcers have not improved in the last few weeks and slough has increased. His ulcers have moderate drainage. Subjective Subjective Mauricio returns today for follow up of venous ulcers of his bilateral LE. He tolerated treatment with UNNA boot therapy. His edema is stable compared to last week. He denies any fever, chills, increased drainage, odor or pain. Objective Data Objective Data Vital Signs: Vital Signs Temp Pulse Resp BP 97.6 F L 65 16 127/70 H 03/12/22 09:22 03/12/22 09:22 03/12/22 09:22 03/12/22 09:22 Physical Exam Const alert, oriented x3 and no apparent distress General Appearance: cooperative and comfortable HEENT normocephalic and head/scalp atraumatic Resp normal respiratory effort Effort and Inspection: able to speak in complete sentences Cardio regular rate and regular rhythm Skin Wounds: wounds noted Wound Narrative: as in clinical panel Psych mental status grossly normal, thought process normal, cooperative and affect normal Debridement Note Debridement Note Wound debrided: RLE medial Laterality: Right Type of Debridement: Excisional debridement Anesthesia Used: 4% Lidocaine Solution and 5% Lidocaine Gel Depth: Down to and including healthy tissue and in the subcutaneous layer Percentage of wound debrided: 100 Instrument Used: 5mm curette Tissue Removed: Yellow slough, devitalized tissue Severity: Fat Layer Exposed Amount of bleeding with debridement: Mild Bleeding Controlled with: Compression and gauze Patient tolerated procedure: Patient tolerated procedure well Post-Debridement Measurements and Additional Note: Post-Debridement Measurements/Treatment - Nurse 1 - General Ulcer Assessment Start: 03/12/22 09:21 Freq: Status: Active Protocol: ONDINA Activity Type Activity Date Activity User E-Sign Co-Sign Detail Recorded Client Recorded Date Recorded By Document 03/12/22 09:22 ML [id number] 03/12/22 09:33 ML 03/12/22 09:22 WC - Today's Visit Information Type of service Follow-up Visit (Physician/MANAGER INSTRUMENTATION ) Arrival Mode Walker Transfer Assistance None Patient Identification Verified (Name & Yes ) Patient Requires Transmission-Based No Precautions Safety Precautions NA Vital Signs Temperature (97.8 F-99.1 F) 97.6 F L Temperature Source Temporal Pulse Rate (60-100) 65 Pulse Location Monitor Respiratory Rate (12-18) 16 Respiratory rate source Observation Blood Pressure (90/60-120/80) 127/70 H Blood Pressure Mean (mm Hg) 89 Source Monitor Position Sitting Blood Pressure Location Left Arm History Since Last Visit- (Skip if this is Patient's initial visit) Have you changed medications since your No last visit? Any new allergies or adverse reactions No Had a fall/change in ADL's that may No increase risk of falls Signs or symptoms of abuse and/or No neglect since last visit Have you been in the hospital since your No last visit? Has dressing in place as prescribed Yes Has compression in place as prescribed Yes Has offloadiing in place as prescribed N/A Experienced any changes in pain level or No management Left Footwear Regular Shoe Right Footwear Regular Shoe Pain Scale: 0-10 Numeric Is Patient Pain Free? Yes - Nurse 1 - General Ulcer Measurement Start: 03/12/22 09:21 Freq: Status: Active Protocol: Activity Type Activity Date Activity User E-Sign Co-Sign Detail Recorded Client Recorded Date Recorded By Document 03/12/22 09:22 ML [id number] 03/12/22 09:33 ML Edit Result 03/12/22 09:22 ML (1) [id number] 03/12/22 09:33 ML (1) 14. RLE medial - Current Size (cm) - Width 235 => 2.3 - Total Square Cm 705 => 6.9 03/12/22 09:22 Wound Center Nurse 1 14. RLE medial -Current Size (cm) - Length 3 -Current Size (cm) - Width 2.3 -Current Size (cm) - Depth 0.1 -Total Square Cm 6.9 -Exudate Amt Small -Exudate Type Serosanguineous -Wound Margin Distinct, Outline Attached -Granulation Amt Small (1-33%) -Slough/Fibrin Yes -Necrosis Amt Small (1-33%) -Necrotic Tissue Type Adherent Slough -Texture (Marie-wound Skin Appearance) Assessed -Moisture (Marie-wound Skin Appearance) Assessed -Color (Marie-wound Skin Appearance) Assessed -Temperature (Marie-wound Skin No Abnormality Appearance) (Pt Warm) -Tenderness on Palpation (Marie-wound No Skin Appearance) -Ulcer Cleansing Rinsed/ Irrigated with Saline -Foul Odor after Cleansing No -Anesthetic Used 4% Lidocaine Solution 13. LLE lateral -Current Size (cm) - Length 1 -Current Size (cm) - Width 1 -Current Size (cm) - Depth 0.1 -Total Square Cm 1 -Exudate Amt None Present -Granulation Amt Small (1-33%) -Necrosis Amt Small (1-33%) -Texture (Marie-wound Skin Appearance) Assessed -Moisture (Marie-wound Skin Appearance) Assessed -Color (Marie-wound Skin Appearance) Assessed -Temperature (Marie-wound Skin No Abnormality Appearance) (Pt Warm) -Tenderness on Palpation (Marie-wound No Skin Appearance) -Ulcer Cleansing Rinsed/ Irrigated with Saline -Foul Odor after Cleansing No -Anesthetic Used 4% Lidocaine Solution Right Calf (cm) 41 Right Ankle (cm) 30 Left Calf (cm) 38 Left Ankle (cm) 31 WC - Nurse 2 - General Ulcer CM Notes Start: 03/12/22 09:21 Freq: Status: Active Protocol: Activity Type Activity Date Activity User E-Sign Co-Sign Detail Recorded Client Recorded Date Recorded By Document 03/12/22 10:15 MW [id number] 03/12/22 10:30 MW 03/12/22 10:15 Wound Center Nurse 2 14. RLE medial -Time 10:17 -Correct Patient Yes -Correct Side, Site, Position Yes -Correct Procedure Yes -Procedure Performed Yes -Type of Procedure Debridement -Clinical Debridement Subcutaneous -Tissue Removed Subcutaneous -Post Debridement (cm) - Length 3.8 -Post Debridement (cm) - Width 2.7 -Post Debridement (cm) - Depth 0.1 -Total Square (Post) (cm) 10.26 -Area of Debridement (cm) - Length 3.8 -Area of Debridement (cm) - Width 2.7 -Total Square (Area) (cm) 10.26 -Tunneling No -Undermining/Tunneling No -Circular Undermining No -Wound/Ulcer Outcome Not Healed -Ulcer Cleansing Rinsed/ Irrigated with Saline -Foul Odor after Cleansing No -Bioengineered Tissue No -Bleeding Controlled with Pressure -Treatment Response Procedure Tolerated Well -Offloading No -Debridement - Subq, 1st 20sq cm Yes 13. LLE lateral -Time 10:17 -Correct Patient Yes -Correct Side, Site, Position Yes -Correct Procedure Yes -Procedure Performed Yes -Type of Procedure Debridement -Clinical Debridement Subcutaneous -Tissue Removed Subcutaneous -Post Debridement (cm) - Length 0.9 -Post Debridement (cm) - Width 0.8 -Post Debridement (cm) - Depth 0.1 -Total Square (Post) (cm) 0.72 -Area of Debridement (cm) - Length 0.9 -Area of Debridement (cm) - Width 0.8 -Total Square (Area) (cm) 0.72 -Tunneling No -Undermining/Tunneling No -Circular Undermining No -Wound/Ulcer Outcome Not Healed -Ulcer Cleansing Rinsed/ Irrigated with Saline -Foul Odor after Cleansing No -Bioengineered Tissue No -Bleeding Controlled with Pressure -Treatment Response Procedure Tolerated Well -Offloading No -Debridement - Subq, 1st 20sq cm No Pain Scale: 0-10 Numeric Is Patient Pain Free? Yes WC - Nurse 3 - General Ulcer D/C NN Start: 03/12/22 09:21 Freq: Status: Active Protocol: Activity Type Activity Date Activity User E-Sign Co-Sign Detail Recorded Client Recorded Date Recorded By Document 03/12/22 10:30 MW [id number] 03/12/22 10:32 MW 03/12/22 10:30 Wound Care Nurse 3 14. RLE medial -Ulcer Cleansing Rinsed/ Irrigated with Saline -Foul Odor after Cleansing No -Negative Pressure Wound Therapy N/A -Other Dressing unna boot -Primary Dressing Covered/Secured with Dry Gauze & Roll Gauze, Secured with Tape 13. LLE lateral -Ulcer Cleansing Rinsed/ Irrigated with Saline -Foul Odor after Cleansing No -Negative Pressure Wound Therapy N/A -Other Dressing unna boot -Primary Dressing Covered/Secured with Dry Gauze & Roll Gauze, Secured with Tape Left -Lotion applied to leg before No compression wrap -Multi-Layered Wrap Application Multi-Layer Comp - Bilat ($ ) Treatment Response Procedure Tolerated Well Pain Scale: 0-10 Numeric Is Patient Pain Free? Yes Teaching: Wound Center Compression Wraps & Stockings -Person Taught Patient -Teaching Method Discussion -Response to teaching Verbalize understanding WC - Visit Discharge Discharge Condition Stable Ambulatory Status Ambulatory, Walker Transportation [facility] Medication Reconcilliation completed & No provided to patient/care provider Clinical Summary of Care Provided Yes Additional Wound Wound debrided: Left lateral LE Laterality: Left Type of Debridement: Excisional debridement Anesthesia Used: 4% Lidocaine Solution and 5% Lidocaine Gel Depth: Down to and including healthy tissue and in the subcutaneous layer Percentage of wound debrided: 100 Instrument Used: 5mm curette Tissue Removed: Yellow slough, devitalized tissue Severity: Fat Layer Exposed Amount of bleeding with debridement: Mild Bleeding Controlled with: Compression and gauze Patient tolerated procedure: Patient tolerated procedure well Assessment/Plan Assessment/Plan (1) Ulcer of right lower extremity with fat layer exposed: CODE(S): L97.912 - Non-pressure chronic ulcer of unspecified part of right lower leg with fat layer exposed (2) Ulcer of left lower extremity with fat layer exposed: CODE(S): L97.922 - Non-pressure chronic ulcer of unspecified part of left lower leg with fat layer exposed (3) Venous insufficiency: CODE(S): I87.2 - Venous insufficiency (chronic) (peripheral) (4) Edema: CODE(S): R60.9 - Edema, unspecified QUALIFIERS: Edema type: unspecified Qualified Code(s): R60.9 - Edema, unspecified (5) History of CVA (cerebrovascular accident): CODE(S): Z86.73 - Personal history of transient ischemic attack (TIA), and cerebral infarction without residual deficits (6) Venous ulcer of left lower extremity with varicose veins: CODE(S): I83.029 - Varicose veins of left lower extremity with ulcer of unspecified site (7) Venous ulcer of both lower extremities with varicose veins: CODE(S): I83.019 - Varicose veins of right lower extremity with ulcer of unspecified site; I83.029 - Varicose veins of left lower extremity with ulcer of unspecified site (8) Venous ulcers of both lower extremities: CODE(S): I87.2 - Venous insufficiency (chronic) (peripheral) (9) Lymphedema: CODE(S): I89.0 - Lymphedema, not elsewhere classified PLAN: Mauricio's ulcers were evaluated and debrided today at the wound healing center. He has been treated since November by his primary care physician using calcium alginate and UNNA boot therapy and he developed significant slough necessitating treatment at the wound healing center for venous stasis ulcers of his bilateral lower extremities to undergo excisional debridement. He tolerated debridement well. His ulcers are going to be dressed with UNNA boots for heavy drainage. This will be changed by home health on Tuesday. Will continue to use conventional treatment his insurance denied treatment with advanced wound healing product. He is encouraged to elevate his legs and use lymphedema pumps. We discussed importance of nutrition and increased protein intake for wound healing. He will call if there is increased drainage, erythema, fever, chills, or pain. He will return in 1 week for follow up.
[2022-03-19 09:29] VITALS: BP 106/68; PULSE 80; RESP 18; TEMP 36.2
--- NOTE | 2022-03-19 10:34 | PN.PCM_ITS ---
History of Present Illness Date of Service: 03/19/22 Chief Complaint: venous ulcers of bilateral lower extremities History of Wound: Mauricio is a 66 yo gentleman who is here today for evaluation of ulcers to to his bilateral lower legs. He has been treated multiple times in the past at the wound healing center for similar ulcers. The left LE ulcer started after he developed increased swelling and blisters of left leg in September and the right leg started sometime at the end of October He was prescribed Doxycycline in September, October, and November. He denies improvement and is having swelling to left his calf and thigh. He has been having swelling to both lower extremities for many years and it has worsened over the last few months. He has clear yellow drainage and redness without odor or warmth. He is anti- coagulated on coumadin. He has been washing with Dial soap and witch ifrah. He had been using Collagen at times and using Calcium Alginate and covering with gauze during October. He was treated with UNNA boot therapy Since November 19, 2021 using calcium alginate over the ulcers under the UNNA boots. He was referred to the wound center for ongoing treatment as his ulcers have not improved in the last few weeks and slough has increased. His ulcers have moderate drainage. Subjective Subjective Mauricio returns today for follow up of venous ulcers of his bilateral LE. He tolerated treatment with UNNA boot therapy. His edema is stable compared to last week. He denies any fever, chills, increased drainage, odor or pain. Objective Data Objective Data Vital Signs: Vital Signs Temp Pulse Resp BP 97.2 F L 80 18 106/68 03/19/22 09:29 03/19/22 09:29 03/19/22 09:29 03/19/22 09:29 Physical Exam Const alert, oriented x3 and no apparent distress General Appearance: cooperative and comfortable HEENT normocephalic and head/scalp atraumatic Resp normal respiratory effort Effort and Inspection: able to speak in complete sentences Cardio regular rate and regular rhythm Skin Wounds: wounds noted Wound Narrative: as in clinical panel Psych mental status grossly normal, thought process normal, cooperative and affect normal Debridement Note Debridement Note Wound debrided: right medial ulcer Laterality: Right Type of Debridement: Excisional debridement Anesthesia Used: 4% Lidocaine Solution, 5% Lidocaine Gel and Cetacaine Depth: Down to and including healthy tissue and in the subcutaneous layer Percentage of wound debrided: 100 Instrument Used: 3mm curette Tissue Removed: Yellow slough, devitalized tissue Severity: Fat Layer Exposed Amount of bleeding with debridement: Mild Bleeding Controlled with: Compression and gauze Patient tolerated procedure: Patient tolerated procedure well Post-Debridement Measurements and Additional Note: Post-Debridement Measurements/Treatment DEBBIE - Nurse 1 - General Ulcer Assessment Start: 03/12/22 09:21 Freq: Status: Active Protocol: ONDINA Activity Type Activity Date Activity User E-Sign Co-Sign Detail Recorded Client Recorded Date Recorded By Document 03/12/22 09:22 ML [id number] 03/12/22 09:33 ML Document 03/19/22 09:29 RB [id number] 03/19/22 09:34 RB 03/12/22 03/19/22 09:22 09:29 WC - Today's Visit Information Type of service Follow-up Visit Follow-up Visit (Physician/WORKERS COMPENSATION ADJUSTER (Physician/WORKERS COMPENSATION ADJUSTER ) ) Arrival Mode Walker Ambulatory, Walker Transfer Assistance None None Patient Identification Verified (Name & Yes Yes ) Patient Requires Transmission-Based No No Precautions Safety Precautions NA Vital Signs Temperature (97.8 F-99.1 F) 97.6 F L 97.2 F L Temperature Source Temporal Temporal Pulse Rate (60-100) 65 80 Pulse Location Monitor Monitor Respiratory Rate (12-18) 16 18 Respiratory rate source Observation Observation Blood Pressure (90/60-120/80) 127/70 H 106/68 Blood Pressure Mean (mm Hg) 89 80 Source Monitor Monitor Position Sitting Semi-Fowlers Blood Pressure Location Left Arm Left Arm History Since Last Visit- (Skip if this is Patient's initial visit) Have you changed medications since your No No last visit? Any new allergies or adverse reactions No No Had a fall/change in ADL's that may No No increase risk of falls Signs or symptoms of abuse and/or No No neglect since last visit Have you been in the hospital since your No No last visit? Has dressing in place as prescribed Yes Yes Has compression in place as prescribed Yes Yes Has offloadiing in place as prescribed N/A No Experienced any changes in pain level or No No management Left Footwear Regular Shoe Regular Shoe Right Footwear Regular Shoe Regular Shoe Pain Scale: 0-10 Numeric Is Patient Pain Free? Yes Yes DEBBIE - Nurse 1 - General Ulcer Measurement Start: 03/12/22 09:21 Freq: Status: Active Protocol: Activity Type Activity Date Activity User E-Sign Co-Sign Detail Recorded Client Recorded Date Recorded By Document 03/12/22 09:22 ML [id number] 03/12/22 09:33 ML Edit Result 03/12/22 09:22 ML (1) [id number] 03/12/22 09:33 ML Document 03/19/22 09:29 RB [id number] 03/19/22 09:34 RB (1) 14. RLE medial - Current Size (cm) - Width 235 => 2.3 - Total Square Cm 705 => 6.9 03/12/22 03/19/22 09:22 09:29 Wound Center Nurse 1 14. RLE medial -Combined with other wound No -Current Size (cm) - Length 3 3.2 -Current Size (cm) - Width 2.3 2.5 -Current Size (cm) - Depth 0.1 0.1 -Total Square Cm 6.9 8.00 -Tunneling No -Undermining/Tunneling No -Circular Undermining No -Exudate Amt Small Medium -Exudate Type Serosanguineous Serosanguineous -Wound Margin Distinct, Distinct, Outline Outline Attached Attached -Granulation Amt Small (1-33%) Medium (34-66%) -Granulation Quality [place] -Slough/Fibrin Yes Yes -Necrosis Amt Small (1-33%) Small (1-33%) -Necrotic Tissue Type Adherent Slough Adherent Slough -Structure Exposed N/A -Texture (Marie-wound Skin Appearance) Assessed Assessed -Moisture (Marie-wound Skin Appearance) Assessed Assessed -Color (Marie-wound Skin Appearance) Assessed Assessed -Temperature (Marie-wound Skin No Abnormality No Abnormality Appearance) (Pt Warm) (Pt Warm) -Tenderness on Palpation (Marie-wound No No Skin Appearance) -Ulcer Cleansing Rinsed/ Wound Cleanser Irrigated with Saline -Foul Odor after Cleansing No No -Anesthetic Used 4% Lidocaine 4% Lidocaine Solution Solution 13. LLE lateral -Combined with other wound No -Current Size (cm) - Length 1 0.8 -Current Size (cm) - Width 1 0.8 -Current Size (cm) - Depth 0.1 0.1 -Total Square Cm 1 0.64 -Tunneling No -Undermining/Tunneling No -Circular Undermining No -Exudate Amt None Present Medium -Exudate Type Serosanguineous -Wound Margin Distinct, Outline Attached -Granulation Amt Small (1-33%) Medium (34-66%) -Granulation Quality [place] -Slough/Fibrin Yes -Necrosis Amt Small (1-33%) Small (1-33%) -Necrotic Tissue Type Adherent Slough -Structure Exposed N/A -Texture (Marie-wound Skin Appearance) Assessed Assessed -Moisture (Marie-wound Skin Appearance) Assessed Assessed -Color (Marie-wound Skin Appearance) Assessed Assessed -Temperature (Marie-wound Skin No Abnormality No Abnormality Appearance) (Pt Warm) (Pt Warm) -Tenderness on Palpation (Marie-wound No No Skin Appearance) -Ulcer Cleansing Rinsed/ Wound Cleanser Irrigated with Saline -Foul Odor after Cleansing No No -Anesthetic Used 4% Lidocaine 4% Lidocaine Solution Solution Lower Limb Edema Present Yes Right Calf (cm) 41 44.5 Right Ankle (cm) 30 28.5 Left Calf (cm) 38 43 Left Ankle (cm) 31 29.5 WC - Nurse 2 - General Ulcer CM Notes Start: 03/12/22 09:21 Freq: Status: Active Protocol: Activity Type Activity Date Activity User E-Sign Co-Sign Detail Recorded Client Recorded Date Recorded By Document 03/12/22 10:15 MW [id number] 03/12/22 10:30 MW Document 03/19/22 09:44 MW [id number] 03/19/22 09:54 MW 03/12/22 03/19/22 10:15 09:44 Wound Center Nurse 2 14. RLE medial -Time 10:17 09:45 -Correct Patient Yes Yes -Correct Side, Site, Position Yes Yes -Correct Procedure Yes Yes -Procedure Performed Yes Yes -Type of Procedure Debridement Debridement -Clinical Debridement Subcutaneous Subcutaneous -Tissue Removed Subcutaneous Subcutaneous -Post Debridement (cm) - Length 3.8 3.4 -Post Debridement (cm) - Width 2.7 2.3 -Post Debridement (cm) - Depth 0.1 0.1 -Total Square (Post) (cm) 10.26 7.82 -Area of Debridement (cm) - Length 3.8 3.4 -Area of Debridement (cm) - Width 2.7 2.3 -Total Square (Area) (cm) 10.26 7.82 -Tunneling No No -Undermining/Tunneling No No -Circular Undermining No -Wound/Ulcer Outcome Not Healed -Ulcer Cleansing Rinsed/ Rinsed/ Irrigated with Irrigated with Saline Saline -Foul Odor after Cleansing No No -Bioengineered Tissue No No -Bleeding Controlled with Pressure Pressure -Treatment Response Procedure Procedure Tolerated Well Tolerated Well -Offloading No No -Debridement - Subq, 1st 20sq cm Yes Yes 13. LLE lateral -Time 10:17 09:46 -Correct Patient Yes Yes -Correct Side, Site, Position Yes Yes -Correct Procedure Yes Yes -Procedure Performed Yes Yes -Type of Procedure Debridement Debridement -Clinical Debridement Subcutaneous Subcutaneous -Tissue Removed Subcutaneous Subcutaneous -Post Debridement (cm) - Length 0.9 0.6 -Post Debridement (cm) - Width 0.8 0.4 -Post Debridement (cm) - Depth 0.1 0.1 -Total Square (Post) (cm) 0.72 0.24 -Area of Debridement (cm) - Length 0.9 0.6 -Area of Debridement (cm) - Width 0.8 0.4 -Total Square (Area) (cm) 0.72 0.24 -Tunneling No No -Undermining/Tunneling No No -Circular Undermining No No -Wound/Ulcer Outcome Not Healed Not Healed -Ulcer Cleansing Rinsed/ Rinsed/ Irrigated with Irrigated with Saline Saline -Foul Odor after Cleansing No No -Bioengineered Tissue No No -Bleeding Controlled with Pressure Pressure -Treatment Response Procedure Procedure Tolerated Well Tolerated Well -Offloading No No -Debridement - Subq, 1st 20sq cm No No Pain Scale: 0-10 Numeric Is Patient Pain Free? Yes Yes WC - Nurse 3 - General Ulcer D/C NN Start: 03/12/22 09:21 Freq: Status: Active Protocol: Activity Type Activity Date Activity User E-Sign Co-Sign Detail Recorded Client Recorded Date Recorded By Document 03/12/22 10:30 MW [id number] 03/12/22 10:32 MW Edit Result 03/12/22 10:30 MW (1) [id number] 03/15/22 07:41 PL Document 03/19/22 10:09 DL [id number] 03/19/22 10:10 DL (1) Bilateral - Lotion applied to leg before => No compression wrap - Multi-Layered Wrap Application => Unna Boot - => Bilateral ($) - Unna Boots (Bilat) ($) => 2 Left - Lotion applied to leg before No => compression wrap - Multi-Layered Wrap Application Multi-Layer Comp - => Bilat ($) => 03/12/22 03/19/22 10:30 10:09 Wound Care Nurse 3 14. RLE medial -Ulcer Cleansing Rinsed/ Rinsed/ Irrigated with Irrigated with Saline Saline -Foul Odor after Cleansing No No -Negative Pressure Wound Therapy N/A -Primary Dressing Applied Promogran -Other Dressing unna boot -Primary Dressing Covered/Secured with Dry Gauze & Dry Gauze & Roll Gauze, Roll Gauze, Secured with Secured with Tape Tape -Promogran 1 13. LLE lateral -Ulcer Cleansing Rinsed/ Rinsed/ Irrigated with Irrigated with Saline Saline -Foul Odor after Cleansing No No -Negative Pressure Wound Therapy N/A -Other Dressing unna boot promogran -Primary Dressing Covered/Secured with Dry Gauze & Dry Gauze & Roll Gauze, Roll Gauze, Secured with Secured with Tape Tape Bilateral -Lotion applied to leg before No compression wrap -Multi-Layered Wrap Application Unna Boot - Multi-Layer Bilateral ($) Comp - Bilat ($ ) -Unna Boots (Bilat) ($) 2 Treatment Response Procedure Procedure Tolerated Well Tolerated Well Pain Scale: 0-10 Numeric Is Patient Pain Free? Yes Yes Teaching: Wound Center Compression Wraps & Stockings -Person Taught Patient -Teaching Method Discussion -Response to teaching Verbalize understanding WC - Visit Discharge Discharge Condition Stable Stable Ambulatory Status Ambulatory, Ambulatory Walker Transportation [facility] Auto Medication Reconcilliation completed & No provided to patient/care provider Clinical Summary of Care Provided Yes Facility Type Home Health Orders Sent Yes Additional Wound Wound debrided: Left lateral LE Laterality: Left Type of Debridement: Excisional debridement Anesthesia Used: 4% Lidocaine Solution, 5% Lidocaine Gel and Cetacaine Depth: Down to and including healthy tissue and in the subcutaneous layer Percentage of wound debrided: 100 Instrument Used: 3mm curette Tissue Removed: Yellow slough, devitalized tissue Severity: Fat Layer Exposed Amount of bleeding with debridement: Mild Bleeding Controlled with: Pressure and Compression and gauze Patient tolerated procedure: Patient tolerated procedure well Assessment/Plan Assessment/Plan (1) Ulcer of right lower extremity with fat layer exposed: CODE(S): L97.912 - Non-pressure chronic ulcer of unspecified part of right lower leg with fat layer exposed (2) Ulcer of left lower extremity with fat layer exposed: CODE(S): L97.922 - Non-pressure chronic ulcer of unspecified part of left lower leg with fat layer exposed (3) Venous insufficiency: CODE(S): I87.2 - Venous insufficiency (chronic) (peripheral) (4) Edema: CODE(S): R60.9 - Edema, unspecified QUALIFIERS: Edema type: unspecified Qualified Code(s): R60.9 - Edema, unspecified (5) History of CVA (cerebrovascular accident): CODE(S): Z86.73 - Personal history of transient ischemic attack (TIA), and cerebral infarction without residual deficits (6) Venous ulcer of left lower extremity with varicose veins: CODE(S): I83.029 - Varicose veins of left lower extremity with ulcer of unspecified site (7) Venous ulcer of both lower extremities with varicose veins: CODE(S): I83.019 - Varicose veins of right lower extremity with ulcer of unspecified site; I83.029 - Varicose veins of left lower extremity with ulcer of unspecified site (8) Venous ulcers of both lower extremities: CODE(S): I87.2 - Venous insufficiency (chronic) (peripheral) (9) Lymphedema: CODE(S): I89.0 - Lymphedema, not elsewhere classified PLAN: Mauricio's ulcers were evaluated and debrided today at the wound healing center. He has been treated since November by his primary care physician using calcium alginate and UNNA boot therapy and he developed significant slough necessitating treatment at the wound healing center for venous stasis ulcers of his bilateral lower extremities to undergo excisional debridement. He tolerated debridement well. His ulcers are going to be dressed with promogran for moderate drainage and 3M compression. This will be changed by home health on Tuesday. Will continue to use conventional treatment his insurance denied treatment with advanced wound healing product. He is encouraged to elevate his legs and use lymphedema pumps. We discussed importance of nutrition and increased protein intake for wound healing. He will call if there is increased drainage, erythema, fever, chills, or pain. He will return in 1 week for follow up.
--- NOTE | 2022-03-23 09:32 | WC ---
Received a call from Jory nurse with [facility] home health. Stated she is at the patient house now and he is refusing 3M 2L wraps because they are too hot. He is requesting kishore wraps for compression instead until next appt on Tuesday03/26/22. Dr. Garcia notified.
[2022-03-26 09:23] VITALS: RESP 18; TEMP 36.3
--- NOTE | 2022-03-26 10:38 | PCM.WC.PN ---
History of Present Illness Date of Service: 03/26/22 Chief Complaint: venous ulcers of bilateral lower extremities History of Wound: Mauricio is a 66 yo gentleman who is here today for evaluation of ulcers to to his bilateral lower legs. He has been treated multiple times in the past at the wound healing center for similar ulcers. The left LE ulcer started after he developed increased swelling and blisters of left leg in September and the right leg started sometime at the end of October He was prescribed Doxycycline in September, October, and November. He denies improvement and is having swelling to left his calf and thigh. He has been having swelling to both lower extremities for many years and it has worsened over the last few months. He has clear yellow drainage and redness without odor or warmth. He is anti-coagulated on coumadin. He has been washing with Dial soap and witch ifrah. He had been using Collagen at times and using Calcium Alginate and covering with gauze during October. He was treated with UNNA boot therapy Since November 19, 2021 using calcium alginate over the ulcers under the UNNA boots. He was referred to the wound center for ongoing treatment as his ulcers have not improved in the last few weeks and slough has increased. His ulcers have moderate drainage. Subjective Subjective Mauricio returns today for follow up of venous ulcers of his bilateral LE. He did not tolerate treatment with 3M compression. His edema is slightly worse compared to last week. He denies any fever, chills, increased drainage, odor or pain. Objective Data Objective Data Vital Signs: Vital Signs Temp Pulse Resp BP 97.3 F L 80 18 106/68 03/26/22 09:23 03/19/22 09:29 03/26/22 09:23 03/19/22 09:29 Physical Exam Const alert, oriented x3 and no apparent distress General Appearance: cooperative and comfortable HEENT normocephalic and head/scalp atraumatic Resp normal respiratory effort Effort and Inspection: able to speak in complete sentences Cardio regular rate and regular rhythm Skin Wounds: wounds noted Wound Narrative: as in clinical panel Psych mental status grossly normal, thought process normal, cooperative and affect normal Debridement Note Debridement Note Wound debrided: right medial ankle Laterality: Right Type of Debridement: Excisional debridement Anesthesia Used: 4% Lidocaine Solution and 5% Lidocaine Gel Depth: Down to and including healthy tissue and in the subcutaneous layer Percentage of wound debrided: 100 Instrument Used: 5mm curette Tissue Removed: Yellow slough, devitalized tissue Severity: Fat Layer Exposed Amount of bleeding with debridement: Mild Bleeding Controlled with: Compression and gauze Patient tolerated procedure: Patient tolerated procedure well Post-Debridement Measurements and Additional Note: Post-Debridement Measurements/Treatment WC - Nurse 1 - General Ulcer Assessment Start: 03/12/22 09:21 Freq: Status: Active Protocol: ONDINA Activity Type Activity Date Activity User E-sign Co-sign Detail Recorded Client Recorded Date Recorded By Document 03/12/22 09:22 ML [id number] 03/12/22 09:33 ML Document 03/19/22 09:29 RB [id number] 03/19/22 09:34 RB Document 03/26/22 09:23 RB [id number] 03/26/22 09:37 RB 03/12/22 03/19/22 03/26/22 09:22 09:29 09:23 - Today's Visit Information Type of service Follow-up Visit Follow-up Visit Follow-up Visit (Physician/RADIOTELEGRAPH OPERATOR SERVICER (Physician/RADIOTELEGRAPH OPERATOR SERVICER (Physician/RADIOTELEGRAPH OPERATOR SERVICER ) ) ) Arrival Mode Walker Ambulatory, Ambulatory, Walker Walker Transfer Assistance None None None Patient Identification Verified (Name & Yes Yes Yes ) Patient Requires Transmission-Based No No No Precautions Safety Precautions NA Vital Signs Temperature (97.8 F-99.1 F) 97.6 F L 97.2 F L 97.3 F L Temperature Source Temporal Temporal Temporal Pulse Rate (60-100) 65 80 Pulse Location Monitor Monitor Monitor Respiratory Rate (12-18) 16 18 18 Respiratory rate source Observation Observation Observation Blood Pressure (90/60-120/80) 127/70 H 106/68 Blood Pressure Mean (mm Hg) 89 80 Source Monitor Monitor Monitor Position Sitting Semi-Fowlers Sitting Blood Pressure Location Left Arm Left Arm Left Arm History Since Last Visit- (Skip if this is Patient's initial visit) Have you changed medications since your No No No last visit? Any new allergies or adverse reactions No No No Had a fall/change in ADL's that may No No No increase risk of falls Signs or symptoms of abuse and/or No No No neglect since last visit Have you been in the hospital since your No No No last visit? Has dressing in place as prescribed Yes Yes Yes Has compression in place as prescribed Yes Yes Yes Has offloadiing in place as prescribed N/A No No Experienced any changes in pain level or No No No management Left Footwear Regular Shoe Regular Shoe Right Footwear Regular Shoe Regular Shoe Pain Scale: 0-10 Numeric Is Patient Pain Free? Yes Yes Yes WC - Nurse 1 - General Ulcer Measurement Start: 03/12/22 09:21 Freq: Status: Active Protocol: Activity Type Activity Date Activity User E-sign Co-sign Detail Recorded Client Recorded Date Recorded By Document 03/12/22 09:22 ML [id number] 03/12/22 09:33 ML Edit Result 03/12/22 09:22 ML (1) [id number] 03/12/22 09:33 ML Document 03/19/22 09:29 RB [id number] 03/19/22 09:34 RB Document 03/26/22 09:23 RB [id number] 03/26/22 09:37 RB (1) 14. RLE medial - Current Size (cm) - Width 235 => 2.3 - Total Square Cm 705 => 6.9 03/12/22 03/19/22 03/26/22 09:22 09:29 09:23 Wound Center Nurse 1 14. RLE medial -Combined with other wound No No -Current Size (cm) - Length 3 3.2 3.5 -Current Size (cm) - Width 2.3 2.5 2 -Current Size (cm) - Depth 0.1 0.1 0.1 -Total Square Cm 6.9 8.00 7.0 -Photo Taken Yes -Tunneling No No -Undermining/Tunneling No No -Circular Undermining No No -Exudate Amt Small Medium Medium -Exudate Type Serosanguineous Serosanguineous Serosanguineous -Wound Margin Distinct, Distinct, Distinct, Outline Outline Outline Attached Attached Attached -Granulation Amt Small (1-33%) Medium (34-66%) Medium (34-66%) -Granulation Quality [place] -Slough/Fibrin Yes Yes Yes -Necrosis Amt Small (1-33%) Small (1-33%) Small (1-33%) -Necrotic Tissue Type Adherent Slough Adherent Slough Adherent Slough -Structure Exposed N/A N/A -Texture (Marie-wound Skin Appearance) Assessed Assessed Assessed -Moisture (Marie-wound Skin Appearance) Assessed Assessed Assessed -Color (Marie-wound Skin Appearance) Assessed Assessed Assessed -Temperature (Marie-wound Skin No Abnormality No Abnormality No Abnormality Appearance) (Pt Warm) (Pt Warm) (Pt Warm) -Tenderness on Palpation (Marie-wound No No No Skin Appearance) -Ulcer Cleansing Rinsed/ Wound Cleanser Wound Cleanser Irrigated with Saline -Foul Odor after Cleansing No No No -Anesthetic Used 4% Lidocaine 4% Lidocaine 5% Lidocaine Solution Solution Gel 13. LLE lateral -Combined with other wound No No -Current Size (cm) - Length 1 0.8 0.9 -Current Size (cm) - Width 1 0.8 0.7 -Current Size (cm) - Depth 0.1 0.1 0.1 -Total Square Cm 1 0.64 0.63 -Photo Taken Yes -Tunneling No No -Undermining/Tunneling No No -Circular Undermining No No -Exudate Amt None Present Medium Small -Exudate Type Serosanguineous Serosanguineous -Wound Margin Distinct, Distinct, Outline Outline Attached Attached -Granulation Amt Small (1-33%) Medium (34-66%) Medium (34-66%) -Granulation Quality [place] -Slough/Fibrin Yes Yes -Necrosis Amt Small (1-33%) Small (1-33%) Small (1-33%) -Necrotic Tissue Type Adherent Slough Adherent Slough -Structure Exposed N/A N/A -Texture (Marie-wound Skin Appearance) Assessed Assessed Assessed -Moisture (Marie-wound Skin Appearance) Assessed Assessed Assessed -Color (Marie-wound Skin Appearance) Assessed Assessed Assessed -Temperature (Marie-wound Skin No Abnormality No Abnormality No Abnormality Appearance) (Pt Warm) (Pt Warm) (Pt Warm) -Tenderness on Palpation (Marie-wound No No No Skin Appearance) -Ulcer Cleansing Rinsed/ Wound Cleanser Wound Cleanser Irrigated with Saline -Foul Odor after Cleansing No No No -Anesthetic Used 4% Lidocaine 4% Lidocaine 5% Lidocaine Solution Solution Gel Lower Limb Edema Present Yes Yes Right Calf (cm) 41 44.5 48 Right Ankle (cm) 30 28.5 27.5 Left Calf (cm) 38 43 42 Left Ankle (cm) 31 29.5 29.5 WC - Nurse 2 - General Ulcer CM Notes Start: 03/12/22 09:21 Freq: Status: Active Protocol: Activity Type Activity Date Activity User E-sign Co-sign Detail Recorded Client Recorded Date Recorded By Document 03/12/22 10:15 MW [id number] 03/12/22 10:30 MW Document 03/19/22 09:44 MW [id number] 03/19/22 09:54 MW Document 03/26/22 09:54 MW [id number] 03/26/22 10:04 MW 03/12/22 03/19/22 03/26/22 10:15 09:44 09:54 Wound Center Nurse 2 14. RLE medial -Time 10:17 09:45 09:55 -Correct Patient Yes Yes Yes -Correct Side, Site, Position Yes Yes Yes -Correct Procedure Yes Yes Yes -Procedure Performed Yes Yes Yes -Type of Procedure Debridement Debridement Debridement -Clinical Debridement Subcutaneous Subcutaneous Subcutaneous -Tissue Removed Subcutaneous Subcutaneous Subcutaneous -Post Debridement (cm) - Length 3.8 3.4 3.5 -Post Debridement (cm) - Width 2.7 2.3 2.0 -Post Debridement (cm) - Depth 0.1 0.1 0.1 -Total Square (Post) (cm) 10.26 7.82 7.00 -Area of Debridement (cm) - Length 3.8 3.4 3.5 -Area of Debridement (cm) - Width 2.7 2.3 2.0 -Total Square (Area) (cm) 10.26 7.82 7.00 -Tunneling No No No -Undermining/Tunneling No No No -Circular Undermining No No -Wound/Ulcer Outcome Not Healed Not Healed -Ulcer Cleansing Rinsed/ Rinsed/ Rinsed/ Irrigated with Irrigated with Irrigated with Saline Saline Saline -Foul Odor after Cleansing No No No -Bioengineered Tissue No No No -Bleeding Controlled with Pressure Pressure Pressure -Treatment Response Procedure Procedure Procedure Tolerated Well Tolerated Well Tolerated Well -Offloading No No No -Debridement - Subq, 1st 20sq cm Yes Yes Yes 13. LLE lateral -Time 10:17 09:46 09:55 -Correct Patient Yes Yes Yes -Correct Side, Site, Position Yes Yes Yes -Correct Procedure Yes Yes Yes -Procedure Performed Yes Yes Yes -Type of Procedure Debridement Debridement Debridement -Clinical Debridement Subcutaneous Subcutaneous Subcutaneous -Tissue Removed Subcutaneous Subcutaneous Subcutaneous -Post Debridement (cm) - Length 0.9 0.6 0.8 -Post Debridement (cm) - Width 0.8 0.4 0.7 -Post Debridement (cm) - Depth 0.1 0.1 0.1 -Total Square (Post) (cm) 0.72 0.24 0.56 -Area of Debridement (cm) - Length 0.9 0.6 0.8 -Area of Debridement (cm) - Width 0.8 0.4 0.7 -Total Square (Area) (cm) 0.72 0.24 0.56 -Tunneling No No No -Undermining/Tunneling No No No -Circular Undermining No No No -Wound/Ulcer Outcome Not Healed Not Healed Not Healed -Ulcer Cleansing Rinsed/ Rinsed/ Rinsed/ Irrigated with Irrigated with Irrigated with Saline Saline Saline -Foul Odor after Cleansing No No No -Bioengineered Tissue No No No -Bleeding Controlled with Pressure Pressure Pressure -Treatment Response Procedure Procedure Procedure Tolerated Well Tolerated Well Tolerated Well -Offloading No No No -Debridement - Subq, 1st 20sq cm No No No Pain Scale: 0-10 Numeric Is Patient Pain Free? Yes Yes Yes - Nurse 3 - General Ulcer D/C NN Start: 03/12/22 09:21 Freq: Status: Active Protocol: Activity Type Activity Date Activity User E-sign Co-sign Detail Recorded Client Recorded Date Recorded By Document 03/12/22 10:30 MW [id number] 03/12/22 10:32 MW Edit Result 03/12/22 10:30 MW (1) [id number] 03/15/22 07:41 PL Document 03/19/22 10:09 DL [id number] 03/19/22 10:10 DL Document 03/26/22 10:10 RB [id number] 03/26/22 10:11 RB (1) Bilateral - Lotion applied to leg before => No compression wrap - Multi-Layered Wrap Application => Unna Boot - => Bilateral ($) - Unna Boots (Bilat) ($) => 2 Left - Lotion applied to leg before No => compression wrap - Multi-Layered Wrap Application Multi-Layer Comp - => Bilat ($) => 03/12/22 03/19/22 03/26/22 10:30 10:09 10:10 Wound Care Nurse 3 14. RLE medial -Ulcer Cleansing Rinsed/ Rinsed/ Rinsed/ Irrigated with Irrigated with Irrigated with Saline Saline Saline -Foul Odor after Cleansing No No -Negative Pressure Wound Therapy N/A -Primary Dressing Applied Promogran Promogran -Other Dressing unna boot -Primary Dressing Covered/Secured with Dry Gauze & Dry Gauze & Dry Gauze Roll Gauze, Roll Gauze, Secured with Secured with Tape Tape -Promogran 1 1 13. LLE lateral -Ulcer Cleansing Rinsed/ Rinsed/ Rinsed/ Irrigated with Irrigated with Irrigated with Saline Saline Saline -Foul Odor after Cleansing No No -Negative Pressure Wound Therapy N/A -Other Dressing unna boot promogran promogran -Primary Dressing Covered/Secured with Dry Gauze & Dry Gauze & Dry Gauze Roll Gauze, Roll Gauze, Secured with Secured with Tape Tape Right -Multi-Layered Wrap Application Multi-Layer Comp - Right ($ ) Bilateral -Lotion applied to leg before No compression wrap -Multi-Layered Wrap Application Unna Boot - Multi-Layer Bilateral ($) Comp - Bilat ($ ) -Unna Boots (Bilat) ($) 2 Left -Multi-Layered Wrap Application Unna Boot - Left ($) Treatment Response Procedure Procedure Procedure Tolerated Well Tolerated Well Tolerated Well Pain Scale: 0-10 Numeric Is Patient Pain Free? Yes Yes Yes Teaching: Wound Center Compression Wraps & Stockings -Person Taught Patient -Teaching Method Discussion -Response to teaching Verbalize understanding WC - Visit Discharge Discharge Condition Stable Stable Stable Ambulatory Status Ambulatory, Ambulatory Ambulatory, Walker Walker Transportation [facility] Private Auto Private Auto Medication Reconcilliation completed & No No provided to patient/care provider Clinical Summary of Care Provided Yes Yes Facility Type Home Health Orders Sent Yes Additional Wound Wound debrided: left lateral leg Laterality: Left Type of Debridement: Excisional debridement Anesthesia Used: 4% Lidocaine Solution and 5% Lidocaine Gel Depth: Down to and including healthy tissue and in the subcutaneous layer Percentage of wound debrided: 100 Instrument Used: 5mm curette Tissue Removed: Yellow slough, devitalized tissue Severity: Fat Layer Exposed Amount of bleeding with debridement: Mild Bleeding Controlled with: Compression and gauze Patient tolerated procedure: Patient tolerated procedure well Assessment/Plan Assessment/Plan (1) Ulcer of right lower extremity with fat layer exposed: CODE(S): L97.912 - Non-pressure chronic ulcer of unspecified part of right lower leg with fat layer exposed (2) Ulcer of left lower extremity with fat layer exposed: CODE(S): L97.922 - Non-pressure chronic ulcer of unspecified part of left lower leg with fat layer exposed (3) Venous insufficiency: CODE(S): I87.2 - Venous insufficiency (chronic) (peripheral) (4) Edema: CODE(S): R60.9 - Edema, unspecified QUALIFIERS: Edema type: unspecified Qualified Code(s): R60.9 - Edema, unspecified (5) History of CVA (cerebrovascular accident): CODE(S): Z86.73 - Personal history of transient ischemic attack (TIA), and cerebral infarction without residual deficits (6) Venous ulcer of left lower extremity with varicose veins: CODE(S): I83.029 - Varicose veins of left lower extremity with ulcer of unspecified site (7) Venous ulcer of both lower extremities with varicose veins: CODE(S): I83.019 - Varicose veins of right lower extremity with ulcer of unspecified site; I83.029 - Varicose veins of left lower extremity with ulcer of unspecified site (8) Venous ulcers of both lower extremities: CODE(S): I87.2 - Venous insufficiency (chronic) (peripheral) (9) Lymphedema: CODE(S): I89.0 - Lymphedema, not elsewhere classified PLAN: Plan Mauricio's ulcers were evaluated and debrided today at the wound healing center. He has been treated since November by his primary care physician using calcium alginate and UNNA boot therapy and he developed significant slough necessitating treatment at the wound healing center for venous stasis ulcers of his bilateral lower extremities to undergo excisional debridement. He tolerated debridement well. His ulcers are going to be dressed with promogran for moderate drainage and UNNA boot on left leg and 3M on his right leg. This will be changed by home health on Tuesday. Will continue to use conventional treatment his insurance denied treatment with advanced wound healing product. He is encouraged to elevate his legs and use lymphedema pumps. We discussed importance of nutrition and increased protein intake for wound healing. He will call if there is increased drainage, erythema, fever, chills, or pain. He will return in 1 week for follow up.
[2022-04-02 09:47] VITALS: BP 102/61; PULSE 56; RESP 18; TEMP 36.6
--- NOTE | 2022-04-02 12:45 | PN.PCM_ITS ---
History of Present Illness Date of Service: 04/02/22 Chief Complaint: venous ulcers of bilateral lower extremities History of Wound: Mauricio is a 66 yo gentleman who is here today for evaluation of ulcers to to his bilateral lower legs. He has been treated multiple times in the past at the wound healing center for similar ulcers. The left LE ulcer started after he developed increased swelling and blisters of left leg in September and the right leg started sometime at the end of October He was prescribed Doxycycline in September, October, and November. He denies improvement and is having swelling to left his calf and thigh. He has been having swelling to both lower extremities for many years and it has worsened over the last few months. He has clear yellow drainage and redness without odor or warmth. He is anti- coagulated on coumadin. He has been washing with Dial soap and witch ifrah. He had been using Collagen at times and using Calcium Alginate and covering with gauze during October. He was treated with UNNA boot therapy Since November 19, 2021 using calcium alginate over the ulcers under the UNNA boots. He was referred to the wound center for ongoing treatment as his ulcers have not improved in the last few weeks and slough has increased. His ulcers have moderate drainage. Subjective Subjective Mauricio returns today for follow up of venous ulcers of his bilateral LE. He tolerated treatment with UNNA compression. His edema is slightly better compared to last week. He denies any fever, chills, increased drainage, odor or pain. Objective Data Objective Data Vital Signs: Vital Signs Temp Pulse Resp BP 98 F 56 L 18 102/61 04/02/22 09:47 04/02/22 09:47 04/02/22 09:47 04/02/22 09:47 Physical Exam Const alert, oriented x3 and no apparent distress General Appearance: cooperative and comfortable HEENT normocephalic and head/scalp atraumatic Resp normal respiratory effort Effort and Inspection: able to speak in complete sentences Cardio regular rate and regular rhythm Skin Wounds: wounds noted Wound Narrative: as in clinical panel Psych mental status grossly normal, thought process normal, cooperative and affect normal Debridement Note Debridement Note Wound debrided: right medial LE Laterality: Right Type of Debridement: Excisional debridement Anesthesia Used: 4% Lidocaine Solution, 5% Lidocaine Gel and Cetacaine Depth: Down to and including healthy tissue and in the subcutaneous layer Percentage of wound debrided: 100 Instrument Used: 3mm curette Tissue Removed: Yellow slough, devitalized tissue Severity: Fat Layer Exposed Amount of bleeding with debridement: Mild Bleeding Controlled with: Compression and gauze Patient tolerated procedure: Patient tolerated procedure well Post-Debridement Measurements and Additional Note: Post-Debridement Measurements/Treatment - Nurse 1 - General Ulcer Assessment Start: 03/12/22 09:21 Freq: Status: Active Protocol: ONIDNA Activity Type Activity Date Activity User E-sign Co-sign Detail Recorded Client Recorded Date Recorded By Document 03/12/22 09:22 ML [id number] 03/12/22 09:33 ML Document 03/19/22 09:29 RB [id number] 03/19/22 09:34 RB Document 03/26/22 09:23 RB [id number] 03/26/22 09:37 RB Document 04/02/22 09:47 RB [id number] 04/02/22 09:51 RB 03/12/22 03/19/22 03/26/22 09:22 09:29 09:23 - Today's Visit Information Type of service Follow-up Visit Follow-up Visit Follow-up Visit (Physician/VEGETABLE HANDLER (Physician/VEGETABLE HANDLER (Physician/VEGETABLE HANDLER ) ) ) Arrival Mode Walker Ambulatory, Ambulatory, Walker Walker Transfer Assistance None None None Patient Identification Verified (Name & Yes Yes Yes ) Patient Requires Transmission-Based No No No Precautions Safety Precautions NA Vital Signs Temperature (97.8 F-99.1 F) 97.6 F L 97.2 F L 97.3 F L Temperature Source Temporal Temporal Temporal Pulse Rate (60-100) 65 80 Pulse Location Monitor Monitor Monitor Respiratory Rate (12-18) 16 18 18 Respiratory rate source Observation Observation Observation Blood Pressure (90/60-120/80) 127/70 H 106/68 Blood Pressure Mean (mm Hg) 89 80 Source Monitor Monitor Monitor Position Sitting Semi-Fowlers Sitting Blood Pressure Location Left Arm Left Arm Left Arm History Since Last Visit- (Skip if this is Patient's initial visit) Have you changed medications since your No No No last visit? Any new allergies or adverse reactions No No No Had a fall/change in ADL's that may No No No increase risk of falls Signs or symptoms of abuse and/or No No No neglect since last visit Have you been in the hospital since your No No No last visit? Has dressing in place as prescribed Yes Yes Yes Has compression in place as prescribed Yes Yes Yes Has offloadiing in place as prescribed N/A No No Experienced any changes in pain level or No No No management Left Footwear Regular Shoe Regular Shoe Right Footwear Regular Shoe Regular Shoe Pain Scale: 0-10 Numeric Is Patient Pain Free? Yes Yes Yes 04/02/22 09:47 WC - Today's Visit Information Type of service Follow-up Visit (Physician/VEGETABLE HANDLER ) Arrival Mode Ambulatory, Walker Transfer Assistance None Patient Identification Verified (Name & Yes ) Patient Requires Transmission-Based No Precautions Safety Precautions Vital Signs Temperature (97.8 F-99.1 F) 98 F Temperature Source Temporal Pulse Rate (60-100) 56 L Pulse Location Monitor Respiratory Rate (12-18) 18 Respiratory rate source Observation Blood Pressure (90/60-120/80) 102/61 Blood Pressure Mean (mm Hg) 74 Source Monitor Position Semi-Fowlers Blood Pressure Location Left Arm History Since Last Visit- (Skip if this is Patient's initial visit) Have you changed medications since your No last visit? Any new allergies or adverse reactions No Had a fall/change in ADL's that may No increase risk of falls Signs or symptoms of abuse and/or No neglect since last visit Have you been in the hospital since your No last visit? Has dressing in place as prescribed Yes Has compression in place as prescribed Yes Has offloadiing in place as prescribed No Experienced any changes in pain level or No management Left Footwear Regular Shoe Right Footwear Regular Shoe Pain Scale: 0-10 Numeric Is Patient Pain Free? Yes - Nurse 1 - General Ulcer Measurement Start: 03/12/22 09:21 Freq: Status: Active Protocol: Activity Type Activity Date Activity User E-sign Co-sign Detail Recorded Client Recorded Date Recorded By Document 03/12/22 09:22 ML [id number] 03/12/22 09:33 ML Edit Result 03/12/22 09:22 ML (1) [id number] 03/12/22 09:33 ML Document 03/19/22 09:29 RB [id number] 03/19/22 09:34 RB Document 03/26/22 09:23 RB [id number] 03/26/22 09:37 RB Document 04/02/22 09:47 RB [id number] 04/02/22 09:51 RB (1) 14. RLE medial - Current Size (cm) - Width 235 => 2.3 - Total Square Cm 705 => 6.9 03/12/22 03/19/22 03/26/22 09:22 09:29 09:23 Wound Center Nurse 1 14. RLE medial -Combined with other wound No No -Current Size (cm) - Length 3 3.2 3.5 -Current Size (cm) - Width 2.3 2.5 2 -Current Size (cm) - Depth 0.1 0.1 0.1 -Total Square Cm 6.9 8.00 7.0 -Photo Taken Yes -Tunneling No No -Undermining/Tunneling No No -Circular Undermining No No -Exudate Amt Small Medium Medium -Exudate Type Serosanguineous Serosanguineous Serosanguineous -Wound Margin Distinct, Distinct, Distinct, Outline Outline Outline Attached Attached Attached -Granulation Amt Small (1-33%) Medium (34-66%) Medium (34-66%) -Granulation Quality [place] -Slough/Fibrin Yes Yes Yes -Necrosis Amt Small (1-33%) Small (1-33%) Small (1-33%) -Necrotic Tissue Type Adherent Slough Adherent Slough Adherent Slough -Structure Exposed N/A N/A -Texture (Marie-wound Skin Appearance) Assessed Assessed Assessed -Moisture (Marie-wound Skin Appearance) Assessed Assessed Assessed -Color (Marie-wound Skin Appearance) Assessed Assessed Assessed -Temperature (Marie-wound Skin No Abnormality No Abnormality No Abnormality Appearance) (Pt Warm) (Pt Warm) (Pt Warm) -Tenderness on Palpation (Marie-wound No No No Skin Appearance) -Ulcer Cleansing Rinsed/ Wound Cleanser Wound Cleanser Irrigated with Saline -Foul Odor after Cleansing No No No -Anesthetic Used 4% Lidocaine 4% Lidocaine 5% Lidocaine Solution Solution Gel 13. LLE lateral -Combined with other wound No No -Current Size (cm) - Length 1 0.8 0.9 -Current Size (cm) - Width 1 0.8 0.7 -Current Size (cm) - Depth 0.1 0.1 0.1 -Total Square Cm 1 0.64 0.63 -Photo Taken Yes -Tunneling No No -Undermining/Tunneling No No -Circular Undermining No No -Exudate Amt None Present Medium Small -Exudate Type Serosanguineous Serosanguineous -Wound Margin Distinct, Distinct, Outline Outline Attached Attached -Granulation Amt Small (1-33%) Medium (34-66%) Medium (34-66%) -Granulation Quality [place] -Slough/Fibrin Yes Yes -Necrosis Amt Small (1-33%) Small (1-33%) Small (1-33%) -Necrotic Tissue Type Adherent Slough Adherent Slough -Structure Exposed N/A N/A -Texture (Marie-wound Skin Appearance) Assessed Assessed Assessed -Moisture (Marie-wound Skin Appearance) Assessed Assessed Assessed -Color (Marie-wound Skin Appearance) Assessed Assessed Assessed -Temperature (Marie-wound Skin No Abnormality No Abnormality No Abnormality Appearance) (Pt Warm) (Pt Warm) (Pt Warm) -Tenderness on Palpation (Marie-wound No No No Skin Appearance) -Ulcer Cleansing Rinsed/ Wound Cleanser Wound Cleanser Irrigated with Saline -Foul Odor after Cleansing No No No -Anesthetic Used 4% Lidocaine 4% Lidocaine 5% Lidocaine Solution Solution Gel Lower Limb Edema Present Yes Yes Right Calf (cm) 41 44.5 48 Right Ankle (cm) 30 28.5 27.5 Left Calf (cm) 38 43 42 Left Ankle (cm) 31 29.5 29.5 04/02/22 09:47 Wound Center Nurse 1 14. RLE medial -Combined with other wound No -Current Size (cm) - Length 4 -Current Size (cm) - Width 2.5 -Current Size (cm) - Depth 0.1 -Total Square Cm 10.0 -Photo Taken -Tunneling No -Undermining/Tunneling No -Circular Undermining No -Exudate Amt Large -Exudate Type Serosanguineous -Wound Margin Distinct, Outline Attached -Granulation Amt Medium (34-66%) -Granulation Quality [place] -Slough/Fibrin Yes -Necrosis Amt Small (1-33%) -Necrotic Tissue Type Adherent Slough -Structure Exposed N/A -Texture (Marie-wound Skin Appearance) Assessed, Friable, Localized Edema -Moisture (Marie-wound Skin Appearance) Assessed -Color (Marie-wound Skin Appearance) Assessed -Temperature (Marie-wound Skin No Abnormality Appearance) (Pt Warm) -Tenderness on Palpation (Marie-wound No Skin Appearance) -Ulcer Cleansing Wound Cleanser -Foul Odor after Cleansing No -Anesthetic Used 5% Lidocaine Gel 13. LLE lateral -Combined with other wound No -Current Size (cm) - Length 0.5 -Current Size (cm) - Width 0.5 -Current Size (cm) - Depth 0.1 -Total Square Cm 0.25 -Photo Taken -Tunneling No -Undermining/Tunneling No -Circular Undermining No -Exudate Amt Small -Exudate Type Serosanguineous -Wound Margin Distinct, Outline Attached -Granulation Amt Medium (34-66%) -Granulation Quality [place] -Slough/Fibrin Yes -Necrosis Amt Small (1-33%) -Necrotic Tissue Type Adherent Slough -Structure Exposed N/A -Texture (Marie-wound Skin Appearance) Assessed, Friable, Localized Edema -Moisture (Marie-wound Skin Appearance) Assessed -Color (Marie-wound Skin Appearance) Assessed -Temperature (Marie-wound Skin No Abnormality Appearance) (Pt Warm) -Tenderness on Palpation (Marie-wound No Skin Appearance) -Ulcer Cleansing Wound Cleanser -Foul Odor after Cleansing No -Anesthetic Used 5% Lidocaine Gel Lower Limb Edema Present Yes Right Calf (cm) 46.5 Right Ankle (cm) 28.5 Left Calf (cm) 44.5 Left Ankle (cm) 28.8 WC - Nurse 2 - General Ulcer CM Notes Start: 03/12/22 09:21 Freq: Status: Active Protocol: Activity Type Activity Date Activity User E-sign Co-sign Detail Recorded Client Recorded Date Recorded By Document 03/12/22 10:15 MW [id number] 03/12/22 10:30 MW Document 03/19/22 09:44 MW [id number] 03/19/22 09:54 MW Document 03/26/22 09:54 MW [id number] 03/26/22 10:04 MW Document 04/02/22 09:54 MW [id number] 04/02/22 10:06 MW 03/12/22 03/19/22 03/26/22 10:15 09:44 09:54 Wound Center Nurse 2 14. RLE medial -Time 10:17 09:45 09:55 -Correct Patient Yes Yes Yes -Correct Side, Site, Position Yes Yes Yes -Correct Procedure Yes Yes Yes -Procedure Performed Yes Yes Yes -Type of Procedure Debridement Debridement Debridement -Clinical Debridement Subcutaneous Subcutaneous Subcutaneous -Tissue Removed Subcutaneous Subcutaneous Subcutaneous -Post Debridement (cm) - Length 3.8 3.4 3.5 -Post Debridement (cm) - Width 2.7 2.3 2.0 -Post Debridement (cm) - Depth 0.1 0.1 0.1 -Total Square (Post) (cm) 10.26 7.82 7.00 -Area of Debridement (cm) - Length 3.8 3.4 3.5 -Area of Debridement (cm) - Width 2.7 2.3 2.0 -Total Square (Area) (cm) 10.26 7.82 7.00 -Tunneling No No No -Undermining/Tunneling No No No -Circular Undermining No No -Wound/Ulcer Outcome Not Healed Not Healed -Ulcer Cleansing Rinsed/ Rinsed/ Rinsed/ Irrigated with Irrigated with Irrigated with Saline Saline Saline -Foul Odor after Cleansing No No No -Bioengineered Tissue No No No -Bleeding Controlled with Pressure Pressure Pressure -Treatment Response Procedure Procedure Procedure Tolerated Well Tolerated Well Tolerated Well -Offloading No No No -Debridement - Subq, 1st 20sq cm Yes Yes Yes 13. LLE lateral -Time 10:17 09:46 09:55 -Correct Patient Yes Yes Yes -Correct Side, Site, Position Yes Yes Yes -Correct Procedure Yes Yes Yes -Procedure Performed Yes Yes Yes -Type of Procedure Debridement Debridement Debridement -Clinical Debridement Subcutaneous Subcutaneous Subcutaneous -Tissue Removed Subcutaneous Subcutaneous Subcutaneous -Post Debridement (cm) - Length 0.9 0.6 0.8 -Post Debridement (cm) - Width 0.8 0.4 0.7 -Post Debridement (cm) - Depth 0.1 0.1 0.1 -Total Square (Post) (cm) 0.72 0.24 0.56 -Area of Debridement (cm) - Length 0.9 0.6 0.8 -Area of Debridement (cm) - Width 0.8 0.4 0.7 -Total Square (Area) (cm) 0.72 0.24 0.56 -Tunneling No No No -Undermining/Tunneling No No No -Circular Undermining No No No -Wound/Ulcer Outcome Not Healed Not Healed Not Healed -Ulcer Cleansing Rinsed/ Rinsed/ Rinsed/ Irrigated with Irrigated with Irrigated with Saline Saline Saline -Foul Odor after Cleansing No No No -Bioengineered Tissue No No No -Bleeding Controlled with Pressure Pressure Pressure -Treatment Response Procedure Procedure Procedure Tolerated Well Tolerated Well Tolerated Well -Offloading No No No -Debridement - Subq, 1st 20sq cm No No No Pain Scale: 0-10 Numeric Is Patient Pain Free? Yes Yes Yes 04/02/22 09:54 Wound Center Nurse 2 14. RLE medial -Time 09:55 -Correct Patient Yes -Correct Side, Site, Position Yes -Correct Procedure Yes -Procedure Performed Yes -Type of Procedure Debridement -Clinical Debridement Subcutaneous -Tissue Removed Subcutaneous -Post Debridement (cm) - Length 3.5 -Post Debridement (cm) - Width 2.2 -Post Debridement (cm) - Depth 0.1 -Total Square (Post) (cm) 7.70 -Area of Debridement (cm) - Length 3.5 -Area of Debridement (cm) - Width 2.2 -Total Square (Area) (cm) 7.70 -Tunneling No -Undermining/Tunneling No -Circular Undermining No -Wound/Ulcer Outcome Not Healed -Ulcer Cleansing Rinsed/ Irrigated with Saline -Foul Odor after Cleansing No -Bioengineered Tissue No -Bleeding Controlled with Pressure -Treatment Response Procedure Tolerated Well -Offloading No -Debridement - Subq, 1st 20sq cm Yes 13. LLE lateral -Time 09:56 -Correct Patient Yes -Correct Side, Site, Position Yes -Correct Procedure Yes -Procedure Performed Yes -Type of Procedure Debridement -Clinical Debridement Subcutaneous -Tissue Removed Subcutaneous -Post Debridement (cm) - Length 0.4 -Post Debridement (cm) - Width 0.5 -Post Debridement (cm) - Depth 0.1 -Total Square (Post) (cm) 0.20 -Area of Debridement (cm) - Length 0.4 -Area of Debridement (cm) - Width 0.5 -Total Square (Area) (cm) 0.20 -Tunneling No -Undermining/Tunneling No -Circular Undermining No -Wound/Ulcer Outcome Not Healed -Ulcer Cleansing Rinsed/ Irrigated with Saline -Foul Odor after Cleansing No -Bioengineered Tissue No -Bleeding Controlled with Pressure -Treatment Response Procedure Tolerated Well -Offloading No -Debridement - Subq, 1st 20sq cm No Pain Scale: 0-10 Numeric Is Patient Pain Free? Yes WC - Nurse 3 - General Ulcer D/C NN Start: 03/12/22 09:21 Freq: Status: Active Protocol: Activity Type Activity Date Activity User E-sign Co-sign Detail Recorded Client Recorded Date Recorded By Document 03/12/22 10:30 MW [id number] 03/12/22 10:32 MW Edit Result 03/12/22 10:30 MW (1) [id number] 03/15/22 07:41 PL Document 03/19/22 10:09 DL [id number] 03/19/22 10:10 DL Document 03/26/22 10:10 RB [id number] 03/26/22 10:11 RB Document 04/02/22 10:36 RB [id number] 04/02/22 10:39 RB (1) Bilateral - Lotion applied to leg before => No compression wrap - Multi-Layered Wrap Application => Unna Boot - => Bilateral ($) - Unna Boots (Bilat) ($) => 2 Left - Lotion applied to leg before No => compression wrap - Multi-Layered Wrap Application Multi-Layer Comp - => Bilat ($) => 03/12/22 03/19/22 03/26/22 10:30 10:09 10:10 Wound Care Nurse 3 14. RLE medial -Ulcer Cleansing Rinsed/ Rinsed/ Rinsed/ Irrigated with Irrigated with Irrigated with Saline Saline Saline -Foul Odor after Cleansing No No -Negative Pressure Wound Therapy N/A -Primary Dressing Applied Promogran Promogran -Other Dressing unna boot -Primary Dressing Covered/Secured with Dry Gauze & Dry Gauze & Dry Gauze Roll Gauze, Roll Gauze, Secured with Secured with Tape Tape -Promogran 1 1 13. LLE lateral -Ulcer Cleansing Rinsed/ Rinsed/ Rinsed/ Irrigated with Irrigated with Irrigated with Saline Saline Saline -Foul Odor after Cleansing No No -Negative Pressure Wound Therapy N/A -Other Dressing unna boot promogran promogran -Primary Dressing Covered/Secured with Dry Gauze & Dry Gauze & Dry Gauze Roll Gauze, Roll Gauze, Secured with Secured with Tape Tape Right -Multi-Layered Wrap Application Multi-Layer Comp - Right ($ ) Bilateral -Lotion applied to leg before No compression wrap -Multi-Layered Wrap Application Unna Boot - Multi-Layer Bilateral ($) Comp - Bilat ($ ) -Unna Boots (Bilat) ($) 2 Left -Multi-Layered Wrap Application Unna Boot - Left ($) Treatment Response Procedure Procedure Procedure Tolerated Well Tolerated Well Tolerated Well Pain Scale: 0-10 Numeric Is Patient Pain Free? Yes Yes Yes Teaching: Wound Center Compression Wraps & Stockings -Person Taught Patient -Teaching Method Discussion -Response to teaching Verbalize understanding WC - Visit Discharge Discharge Condition Stable Stable Stable Ambulatory Status Ambulatory, Ambulatory Ambulatory, Walker Walker [facility] Private Auto Private Auto Medication Reconcilliation completed & No No provided to patient/care provider Clinical Summary of Care Provided Yes Yes Facility Type Home Health Orders Sent Yes 04/02/22 10:36 Wound Care Nurse 3 14. RLE medial -Ulcer Cleansing Wound Cleanser -Foul Odor after Cleansing -Negative Pressure Wound Therapy -Primary Dressing Applied Promogran -Other Dressing abd -Primary Dressing Covered/Secured with -Promogran 1 13. LLE lateral -Ulcer Cleansing Wound Cleanser -Foul Odor after Cleansing -Negative Pressure Wound Therapy -Other Dressing promogran -Primary Dressing Covered/Secured with Right -Multi-Layered Wrap Application Bilateral -Lotion applied to leg before compression wrap -Multi-Layered Wrap Application Unna Boot - Bilateral ($) -Unna Boots (Bilat) ($) 2 Left -Multi-Layered Wrap Application Treatment Response Procedure Tolerated Well Pain Scale: 0-10 Numeric Is Patient Pain Free? Yes Teaching: Wound Center Compression Wraps & Stockings -Person Taught -Teaching Method -Response to teaching - Visit Discharge Discharge Condition Stable Ambulatory Status Ambulatory, Walker Transportation Private Auto Medication Reconcilliation completed & No provided to patient/care provider Clinical Summary of Care Provided Yes Facility Type Orders Sent Additional Wound Wound debrided: left lateral LE Laterality: Left Type of Debridement: Excisional debridement Anesthesia Used: 4% Lidocaine Solution and 5% Lidocaine Gel Depth: Down to and including healthy tissue and in the subcutaneous layer Percentage of wound debrided: 100 Instrument Used: 3mm curette Tissue Removed: Yellow slough, devitalized tissue Severity: Fat Layer Exposed Amount of bleeding with debridement: Mild Bleeding Controlled with: Compression and gauze Patient tolerated procedure: Patient tolerated procedure well Assessment/Plan Assessment/Plan (1) Ulcer of right lower extremity with fat layer exposed: CODE(S): L97.912 - Non-pressure chronic ulcer of unspecified part of right lower leg with fat layer exposed (2) Ulcer of left lower extremity with fat layer exposed: CODE(S): L97.922 - Non-pressure chronic ulcer of unspecified part of left lower leg with fat layer exposed (3) Venous insufficiency: CODE(S): I87.2 - Venous insufficiency (chronic) (peripheral) (4) Edema: CODE(S): R60.9 - Edema, unspecified QUALIFIERS: Edema type: unspecified Qualified Code(s): R60.9 - Edema, unspecified (5) History of CVA (cerebrovascular accident): CODE(S): Z86.73 - Personal history of transient ischemic attack (TIA), and cerebral infarction without residual deficits (6) Venous ulcer of left lower extremity with varicose veins: CODE(S): I83.029 - Varicose veins of left lower extremity with ulcer of unspecified site (7) Venous ulcer of both lower extremities with varicose veins: CODE(S): I83.019 - Varicose veins of right lower extremity with ulcer of unspecified site; I83.029 - Varicose veins of left lower extremity with ulcer of unspecified site (8) Venous ulcers of both lower extremities: CODE(S): I87.2 - Venous insufficiency (chronic) (peripheral) (9) Lymphedema: CODE(S): I89.0 - Lymphedema, not elsewhere classified PLAN: Plan Mauricio's ulcers were evaluated and debrided today at the wound healing center. He has been treated since November by his primary care physician using calcium alginate and UNNA boot therapy and he developed significant slough necessitating treatment at the wound healing center for venous stasis ulcers of his bilateral lower extremities to undergo excisional debridement. He tolerated debridement well. His ulcers are going to be dressed with promogran for moderate drainage and UNNA boot on left leg and 3M on his right leg. This will be changed by home health on Tuesday. Will continue to use conventional treatment his insurance denied treatment with advanced wound healing product. He is encouraged to elevate his legs and use lymphedema pumps. We discussed importance of nutrition and increased protein intake for wound healing. He will call if there is increased drainage, erythema, fever, chills, or pain. He will return in 2 weeks for follow up.
== END 2022-04-08 23:59 | disposition home or self-care (01) ==
LOC: WC 09:30
PROVIDERS: PCP Family Medicine; Visit Provider Family Medicine
DX: L97.912 Non-pressure chronic ulcer of unspecified part of right lower leg with fat layer exposed (principal); L97.922 Non-pressure chronic ulcer of unspecified part of left lower leg with fat layer exposed; I83.029 Varicose veins of left lower extremity with ulcer of unspecified site; I83.019 Varicose veins of right lower extremity with ulcer of unspecified site; I87.2 Venous insufficiency (chronic) (peripheral); I89.0 Lymphedema, not elsewhere classified; I83.93 Asymptomatic varicose veins of bilateral lower extremities; R60.9 Edema, unspecified; Z86.73 Personal history of transient ischemic attack (TIA), and cerebral infarction without residual deficits
CPT/HCPCS: 11042; 29580; 29581

== ENCOUNTER 2022-05-07 10:00 | Outpatient (RCR) | payer MEDICAID, SELFPAY ==
[2022-04-09 00:36] VITALS: BP 102/61; PULSE 56; RESP 18; TEMP 36.6
[2022-04-16 11:00] VITALS: BP 103/59; PULSE 59; RESP 18; TEMP 36.1
--- NOTE | 2022-04-16 13:32 | PCM.WC.PN ---
History of Present Illness Date of Service: 04/16/22 Chief Complaint: venous ulcers of bilateral lower extremities History of Wound: Mauricio is a 66 yo gentleman who is here today for evaluation of ulcers to to his bilateral lower legs. He has been treated multiple times in the past at the wound healing center for similar ulcers. The left LE ulcer started after he developed increased swelling and blisters of left leg in September and the right leg started sometime at the end of October He was prescribed Doxycycline in September, October, and November. He denies improvement and is having swelling to left his calf and thigh. He has been having swelling to both lower extremities for many years and it has worsened over the last few months. He has clear yellow drainage and redness without odor or warmth. He is anti-coagulated on coumadin. He has been washing with Dial soap and witch ifrah. He had been using Collagen at times and using Calcium Alginate and covering with gauze during October. He was treated with UNNA boot therapy Since November 19, 2021 using calcium alginate over the ulcers under the UNNA boots. He was referred to the wound center for ongoing treatment as his ulcers have not improved in the last few weeks and slough has increased. His ulcers have moderate drainage. Subjective Subjective Mauricio returns today for follow up of venous ulcers of his bilateral LE. He tolerated treatment with UNNA compression. His edema is slightly better compared to last week. He denies any fever, chills, increased drainage, odor or pain. Objective Data Objective Data Vital Signs: Vital Signs Temp Pulse Resp BP 97 F L 59 L 18 103/59 L 04/16/22 11:00 04/16/22 11:00 04/16/22 11:04/16/22 11:00 Physical Exam Const alert, oriented x3 and no apparent distress General Appearance: cooperative and comfortable HEENT normocephalic and head/scalp atraumatic Resp normal respiratory effort Effort and Inspection: able to speak in complete sentences Cardio regular rate and regular rhythm Skin Wounds: wounds noted Wound Narrative: as in clinical panel Psych mental status grossly normal, thought process normal, cooperative and affect normal Debridement Note Debridement Note Wound debrided: right medial LE Laterality: Right Type of Debridement: Excisional debridement Anesthesia Used: 4% Lidocaine Solution, 5% Lidocaine Gel and Cetacaine Depth: Down to and including healthy tissue and in the subcutaneous layer Percentage of wound debrided: 100 Instrument Used: - (Misonix debridement) Tissue Removed: Yellow slough, devitalized tissue Severity: Fat Layer Exposed Amount of bleeding with debridement: Mild Bleeding Controlled with: Compression and gauze Patient tolerated procedure: Patient tolerated procedure well Post-Debridement Measurements and Additional Note: Post-Debridement Measurements/Treatment - Nurse 1 - General Ulcer Assessment Start: 04/16/22 11:00 Freq: Status: Active Protocol: ONDINA Activity Type Activity Date Activity User E-sign Co-sign Detail Recorded Client Recorded Date Recorded By Document 04/16/22 11:00 RB [id number] 04/16/22 11:30 RB 04/16/22 11:00 WC - Today's Visit Information Type of service Follow-up Visit (Physician/HEDIS REVIEW NURSE ) Arrival Mode Ambulatory, Walker Transfer Assistance None Patient Identification Verified (Name & Yes ) Vital Signs Temperature (97.8 F-99.1 F) 97 F L Temperature Source Temporal Pulse Rate (60-100) 59 L Pulse Location Monitor Respiratory Rate (12-18) 18 Respiratory rate source Observation Blood Pressure (90/60-120/80) 103/59 L Blood Pressure Mean (mm Hg) 73 Source Monitor Position Sitting Blood Pressure Location Right Arm History Since Last Visit- (Skip if this is Patient's initial visit) Have you changed medications since your No last visit? Any new allergies or adverse reactions No Had a fall/change in ADL's that may No increase risk of falls Signs or symptoms of abuse and/or No neglect since last visit Have you been in the hospital since your No last visit? Has dressing in place as prescribed Yes Has compression in place as prescribed Yes Has offloadiing in place as prescribed No Experienced any changes in pain level or No management Left Footwear Regular Shoe Right Footwear Regular Shoe Pain Scale: 0-10 Numeric Is Patient Pain Free? Yes - Nurse 1 - General Ulcer Measurement Start: 04/16/22 11:00 Freq: Status: Active Protocol: Activity Type Activity Date Activity User E-sign Co-sign Detail Recorded Client Recorded Date Recorded By Document 04/16/22 11:00 RB [id number] 04/16/22 11:30 RB 04/16/22 11:00 Wound Center Nurse 1 14. RLE medial -Combined with other wound No -Current Size (cm) - Length 3.7 -Current Size (cm) - Width 1.4 -Current Size (cm) - Depth 0.1 -Total Square Cm 5.18 -Photo Taken Yes -Tunneling No -Undermining/Tunneling No -Circular Undermining No -Exudate Amt Large -Exudate Type Serosanguineous -Wound Margin Distinct, Outline Attached -Granulation Amt Medium (34-66%) -Granulation Quality Kinney,Red -Slough/Fibrin Yes -Necrosis Amt Medium (34-66%) -Necrotic Tissue Type Adherent Slough -Structure Exposed N/A -Texture (Marie-wound Skin Appearance) Assessed, Scarring -Moisture (Marie-wound Skin Appearance) Assessed -Color (Marie-wound Skin Appearance) Assessed -Temperature (Marie-wound Skin No Abnormality Appearance) (Pt Warm) -Tenderness on Palpation (Marie-wound No Skin Appearance) -Ulcer Cleansing Wound Cleanser -Foul Odor after Cleansing No -Anesthetic Used 5% Lidocaine Gel 13. LLE lateral -Combined with other wound No -Current Size (cm) - Length 0.8 -Current Size (cm) - Width 0.7 -Current Size (cm) - Depth 0.1 -Total Square Cm 0.56 -Photo Taken Yes -Tunneling No -Undermining/Tunneling No -Circular Undermining No -Exudate Amt Small -Exudate Type Serosanguineous -Wound Margin Distinct, Outline Attached -Granulation Amt Medium (34-66%) -Granulation Quality Kinney -Slough/Fibrin Yes -Necrosis Amt Large (67-100%) -Necrotic Tissue Type Adherent Slough -Structure Exposed N/A -Texture (Marie-wound Skin Appearance) Assessed -Moisture (Marie-wound Skin Appearance) Assessed -Color (Marie-wound Skin Appearance) Assessed -Temperature (Marie-wound Skin No Abnormality Appearance) (Pt Warm) -Tenderness on Palpation (Marie-wound No Skin Appearance) -Ulcer Cleansing Wound Cleanser -Foul Odor after Cleansing No -Anesthetic Used 5% Lidocaine Gel Lower Limb Edema Present Yes Right Calf (cm) 46.5 Right Ankle (cm) 28.5 Left Calf (cm) 45 Left Ankle (cm) 31.2 WC - Nurse 2 - General Ulcer CM Notes Start: 04/16/22 11:00 Freq: Status: Active Protocol: Activity Type Activity Date Activity User E-sign Co-sign Detail Recorded Client Recorded Date Recorded By Document 04/16/22 11:39 MW [id number] 04/16/22 11:48 MW 04/16/22 11:39 Wound Center Nurse 2 14. RLE medial -Time 11:39 -Correct Patient Yes -Correct Side, Site, Position Yes -Correct Procedure Yes -Procedure Performed Yes -Type of Procedure Debridement -Clinical Debridement Subcutaneous -Tissue Removed Subcutaneous -Post Debridement (cm) - Length 3.1 -Post Debridement (cm) - Width 2.0 -Post Debridement (cm) - Depth 0.2 -Total Square (Post) (cm) 6.20 -Area of Debridement (cm) - Length 3.1 -Area of Debridement (cm) - Width 2.0 -Total Square (Area) (cm) 6.20 -Tunneling No -Undermining/Tunneling No -Circular Undermining No -Wound/Ulcer Outcome Not Healed -Ulcer Cleansing Rinsed/ Irrigated with Saline -Foul Odor after Cleansing No -Bioengineered Tissue No -Bleeding Controlled with Pressure -Treatment Response Procedure Tolerated Well -Offloading No -Debridement - Subq, 1st 20sq cm Yes 13. LLE lateral -Time 11:40 -Correct Patient Yes -Correct Side, Site, Position Yes -Correct Procedure Yes -Procedure Performed Yes -Type of Procedure Debridement -Clinical Debridement Subcutaneous -Tissue Removed Subcutaneous -Post Debridement (cm) - Length 0.5 -Post Debridement (cm) - Width 0.5 -Post Debridement (cm) - Depth 0.2 -Total Square (Post) (cm) 0.25 -Area of Debridement (cm) - Length 0.5 -Area of Debridement (cm) - Width 0.5 -Total Square (Area) (cm) 0.25 -Tunneling No -Undermining/Tunneling No -Circular Undermining No -Wound/Ulcer Outcome Not Healed -Ulcer Cleansing Rinsed/ Irrigated with Saline -Foul Odor after Cleansing No -Bioengineered Tissue No -Bleeding Controlled with Pressure -Treatment Response Procedure Tolerated Well -Offloading No -Debridement - Subq, 1st 20sq cm No Pain Scale: 0-10 Numeric Is Patient Pain Free? Yes WC - Nurse 3 - General Ulcer D/C NN Start: 04/16/22 11:00 Freq: Status: Active Protocol: Activity Type Activity Date Activity User E-sign Co-sign Detail Recorded Client Recorded Date Recorded By Document 04/16/22 12:01 RB [id number] 04/16/22 12:03 RB 04/16/22 12:01 Wound Care Nurse 3 14. RLE medial -Ulcer Cleansing Rinsed/ Irrigated with Saline -Primary Dressing Applied Promogran -Other Dressing hydrogel -Primary Dressing Covered/Secured with Dry Gauze -Other Covering abd -Promogran 1 13. LLE lateral -Ulcer Cleansing Rinsed/ Irrigated with Saline -Other Dressing promogran, hydrogel -Primary Dressing Covered/Secured with Dry Gauze -Other Covering abd bilateral -Multi-Layered Wrap Application Unna Boot - Bilateral ($) -Unna Boots (Bilat) ($) 2 Treatment Response Procedure Tolerated Well Pain Scale: 0-10 Numeric Is Patient Pain Free? Yes WC - Visit Discharge Discharge Condition Stable Ambulatory Status Ambulatory, Walker Transportation Private Auto Medication Reconcilliation completed & No provided to patient/care provider Clinical Summary of Care Provided Yes Additional Wound Wound debrided: left lateral LE Laterality: Left Type of Debridement: Excisional debridement Anesthesia Used: 4% Lidocaine Solution and 5% Lidocaine Gel Depth: Down to and including healthy tissue and in the subcutaneous layer Percentage of wound debrided: 100 Instrument Used: - (misonix debridement) Tissue Removed: Yellow slough, devitalized tissue Severity: Fat Layer Exposed Amount of bleeding with debridement: Mild Bleeding Controlled with: Compression and gauze Patient tolerated procedure: Patient tolerated procedure well Assessment/Plan Assessment/Plan (1) Ulcer of right lower extremity with fat layer exposed: CODE(S): L97.912 - Non-pressure chronic ulcer of unspecified part of right lower leg with fat layer exposed (2) Ulcer of left lower extremity with fat layer exposed: CODE(S): L97.922 - Non-pressure chronic ulcer of unspecified part of left lower leg with fat layer exposed (3) Venous insufficiency: CODE(S): I87.2 - Venous insufficiency (chronic) (peripheral) (4) Edema: CODE(S): R60.9 - Edema, unspecified QUALIFIERS: Edema type: unspecified Qualified Code(s): R60.9 - Edema, unspecified (5) History of CVA (cerebrovascular accident): CODE(S): Z86.73 - Personal history of transient ischemic attack (TIA), and cerebral infarction without residual deficits (6) Venous ulcer of left lower extremity with varicose veins: CODE(S): I83.029 - Varicose veins of left lower extremity with ulcer of unspecified site (7) Venous ulcer of both lower extremities with varicose veins: CODE(S): I83.019 - Varicose veins of right lower extremity with ulcer of unspecified site; I83.029 - Varicose veins of left lower extremity with ulcer of unspecified site (8) Venous ulcers of both lower extremities: CODE(S): I87.2 - Venous insufficiency (chronic) (peripheral) (9) Lymphedema: CODE(S): I89.0 - Lymphedema, not elsewhere classified PLAN: Thomas Martínez's ulcers were evaluated and debrided today at the wound healing center. He has been treated since November by his primary care physician using calcium alginate and UNNA boot therapy and he developed significant slough necessitating treatment at the wound healing center for venous stasis ulcers of his bilateral lower extremities to undergo excisional debridement. He tolerated debridement well. His ulcers are going to be dressed with promogran for moderate drainage and UNNA boot b/l. This will be changed by home health on Tuesday. Will continue to use conventional treatment his insurance denied treatment with advanced wound healing product. He is encouraged to elevate his legs and use lymphedema pumps. We discussed importance of nutrition and increased protein intake for wound healing. He will call if there is increased drainage, erythema, fever, chills, or pain. He will return in 1 week for follow up.
--- NOTE | 2022-04-20 13:15 | WC ---
Received a call from [facility] nurse. She stated they are unable to see the patient today to change unna boots to lower leg due to waiting for insurance approval for more home visits. Spoke to patient concerning no home nurse today. He stated his unna boot dressings are intact and he would like to leave them on until his appt Tuesday with Dr. Garcia. Notified Dr. Garcia and she is ok for patient to leave unna boots on till Monday 04/23.
[2022-04-23 10:05] VITALS: BP 130/67; PULSE 71; TEMP 36.2
--- NOTE | 2022-04-23 12:40 | PCM.WC.PN ---
History of Present Illness Date of Service: 04/23/22 Chief Complaint: venous ulcers of bilateral lower extremities History of Wound: Mauricio is a 66 yo gentleman who is here today for evaluation of ulcers to to his bilateral lower legs. He has been treated multiple times in the past at the wound healing center for similar ulcers. The left LE ulcer started after he developed increased swelling and blisters of left leg in September and the right leg started sometime at the end of October He was prescribed Doxycycline in September, October, and November. He denies improvement and is having swelling to left his calf and thigh. He has been having swelling to both lower extremities for many years and it has worsened over the last few months. He has clear yellow drainage and redness without odor or warmth. He is anti-coagulated on coumadin. He has been washing with Dial soap and witch ifrah. He had been using Collagen at times and using Calcium Alginate and covering with gauze during October. He was treated with UNNA boot therapy Since November 19, 2021 using calcium alginate over the ulcers under the UNNA boots. He was referred to the wound center for ongoing treatment as his ulcers have not improved in the last few weeks and slough has increased. His ulcers have moderate drainage. Subjective Subjective Mauricio returns today for follow up of venous ulcers of his bilateral LE. He tolerated treatment with UNNA compression. His edema is slightly better compared to last week. He denies any fever, chills, increased drainage, odor or pain. Objective Data Objective Data Vital Signs: Vital Signs Temp Pulse Resp BP 97.2 F L 71 18 130/67 H 04/23/22 10:05 04/23/22 10:05 04/16/22 11:00 04/23/22 10:05 Physical Exam Const alert, oriented x3 and no apparent distress General Appearance: cooperative and comfortable HEENT normocephalic and head/scalp atraumatic Resp normal respiratory effort Effort and Inspection: able to speak in complete sentences Cardio regular rate and regular rhythm Skin Wounds: wounds noted Wound Narrative: as in clinical panel Psych mental status grossly normal, thought process normal, cooperative and affect normal Debridement Note Debridement Note Wound debrided: right medial LE Laterality: Right Type of Debridement: Excisional debridement Anesthesia Used: 4% Lidocaine Solution, 5% Lidocaine Gel and Cetacaine Depth: Down to and including healthy tissue and in the subcutaneous layer Percentage of wound debrided: 100 Instrument Used: 5mm curette and - Tissue Removed: Yellow slough, devitalized tissue Severity: Fat Layer Exposed Amount of bleeding with debridement: Mild Bleeding Controlled with: Compression and gauze Patient tolerated procedure: Patient tolerated procedure well Post-Debridement Measurements and Additional Note: Post-Debridement Measurements/Treatment WC - Nurse 1 - General Ulcer Assessment Start: 04/16/22 11:00 Freq: Status: Active Protocol: ONDINA Activity Type Activity Date Activity User E-sign Co-sign Detail Recorded Client Recorded Date Recorded By Document 04/16/22 11:00 RB [id number] 04/16/22 11:30 RB Document 04/23/22 10:05 AK [id number] 04/23/22 10:09 AK 04/16/22 04/23/22 11:00 10:05 WC - Today's Visit Information Type of service Follow-up Visit Follow-up Visit (Physician/MEAT STUFFER (Physician/MEAT STUFFER ) ) Arrival Mode Ambulatory, Ambulatory, Walker Walker Transfer Assistance None Patient Identification Verified (Name & Yes Yes ) Patient Requires Transmission-Based No Precautions Vital Signs Temperature (97.8 F-99.1 F) 97 F L 97.2 F L Temperature Source Temporal Temporal Pulse Rate (60-100) 59 L 71 Pulse Location Monitor Monitor Respiratory Rate (12-18) 18 Respiratory rate source Observation Blood Pressure (90/60-120/80) 103/59 L 130/67 H Blood Pressure Mean (mm Hg) 73 88 Source Monitor Monitor Position Sitting Blood Pressure Location Right Arm History Since Last Visit- (Skip if this is Patient's initial visit) Have you changed medications since your No No last visit? Any new allergies or adverse reactions No No Had a fall/change in ADL's that may No No increase risk of falls Signs or symptoms of abuse and/or No No neglect since last visit Have you been in the hospital since your No No last visit? Has dressing in place as prescribed Yes Yes Has compression in place as prescribed Yes Yes Has offloadiing in place as prescribed No N/A Experienced any changes in pain level or No No management Left Footwear Regular Shoe Regular Shoe Right Footwear Regular Shoe Regular Shoe Pain Scale: 0-10 Numeric Is Patient Pain Free? Yes Yes DEBBIE - Nurse 1 - General Ulcer Measurement Start: 04/16/22 11:00 Freq: Status: Active Protocol: Activity Type Activity Date Activity User E-sign Co-sign Detail Recorded Client Recorded Date Recorded By Document 04/16/22 11:00 RB [id number] 04/16/22 11:30 RB Document 04/23/22 10:05 AK [id number] 04/23/22 10:09 AK 04/16/22 04/23/22 11:00 10:05 Wound Center Nurse 1 14. RLE medial -Combined with other wound No No -Current Size (cm) - Length 3.7 3.2 -Current Size (cm) - Width 1.4 1.1 -Current Size (cm) - Depth 0.1 0.1 -Total Square Cm 5.18 3.52 -Date of Last Picture (Recall this 04/23/22 field) -Photo Taken Yes Yes -Tunneling No No -Undermining/Tunneling No No -Circular Undermining No No -Change in Wound Grade/Stage No -Exudate Amt Large Medium -Exudate Type Serosanguineous Serosanguineous -Wound Margin Distinct, Distinct, Outline Outline Attached Attached -Granulation Amt Medium (34-66%) Medium (34-66%) -Granulation Quality [place],Red [place],Red -Slough/Fibrin Yes Yes -Necrosis Amt Medium (34-66%) Small (1-33%) -Necrotic Tissue Type Adherent Slough Adherent Slough -Structure Exposed N/A N/A -Texture (Marie-wound Skin Appearance) Assessed, No Abnormality, Scarring Assessed -Moisture (Marie-wound Skin Appearance) Assessed No Abnormality, Assessed -Color (Marie-wound Skin Appearance) Assessed No Abnormality, Assessed -Temperature (Marie-wound Skin No Abnormality No Abnormality Appearance) (Pt Warm) (Pt Warm) -Tenderness on Palpation (Marie-wound No No Skin Appearance) -Ulcer Cleansing Wound Cleanser Soap and Water -Foul Odor after Cleansing No Yes, Due to Product Use -Anesthetic Used 5% Lidocaine 5% Lidocaine Gel Gel 13. LLE lateral -Combined with other wound No No -Current Size (cm) - Length 0.8 0.6 -Current Size (cm) - Width 0.7 0.5 -Current Size (cm) - Depth 0.1 0.1 -Total Square Cm 0.56 0.30 -Date of Last Picture (Recall this 04/23/22 field) -Photo Taken Yes Yes -Epithelialization None Present -Tunneling No No -Undermining/Tunneling No No -Circular Undermining No No -Change in Wound Grade/Stage No -Exudate Amt Small Medium -Exudate Type Serosanguineous Serosanguineous -Wound Margin Distinct, Outline Attached -Granulation Amt Medium (34-66%) Small (1-33%) -Granulation Quality [place] N/A,[place],Red -Slough/Fibrin Yes Yes -Necrosis Amt Large (67-100%) Small (1-33%) -Necrotic Tissue Type Adherent Slough Adherent Slough -Structure Exposed N/A N/A -Texture (Marie-wound Skin Appearance) Assessed No Abnormality, Assessed -Moisture (Marie-wound Skin Appearance) Assessed No Abnormality, Assessed -Color (Marie-wound Skin Appearance) Assessed No Abnormality, Assessed -Temperature (Marie-wound Skin No Abnormality No Abnormality Appearance) (Pt Warm) (Pt Warm) -Tenderness on Palpation (Marie-wound No No Skin Appearance) -Ulcer Cleansing Wound Cleanser Rinsed/ Irrigated with Saline -Foul Odor after Cleansing No No -Anesthetic Used 5% Lidocaine 5% Lidocaine Gel Gel Lower Limb Edema Present Yes Right Calf (cm) 46.5 41.5 Right Ankle (cm) 28.5 27.5 Left Calf (cm) 45 45 Left Ankle (cm) 31.2 28 WC - Nurse 2 - General Ulcer CM Notes Start: 04/16/22 11:00 Freq: Status: Active Protocol: Activity Type Activity Date Activity User E-sign Co-sign Detail Recorded Client Recorded Date Recorded By Document 04/16/22 11:39 MW [id number] 04/16/22 11:48 MW Document 04/23/22 10:17 MW [id number] 04/23/22 10:31 MW 04/16/22 04/23/22 11:39 10:17 Wound Center Nurse 2 14. RLE medial -Time 11:39 10:18 -Correct Patient Yes Yes -Correct Side, Site, Position Yes Yes -Correct Procedure Yes Yes -Procedure Performed Yes Yes -Type of Procedure Debridement Debridement -Clinical Debridement Subcutaneous Subcutaneous -Tissue Removed Subcutaneous Subcutaneous -Post Debridement (cm) - Length 3.1 3.3 -Post Debridement (cm) - Width 2.0 2.2 -Post Debridement (cm) - Depth 0.2 0.1 -Total Square (Post) (cm) 6.20 7.26 -Area of Debridement (cm) - Length 3.1 3.3 -Area of Debridement (cm) - Width 2.0 2.2 -Total Square (Area) (cm) 6.20 7.26 -Tunneling No No -Undermining/Tunneling No No -Circular Undermining No No -Wound/Ulcer Outcome Not Healed Not Healed -Ulcer Cleansing Rinsed/ Rinsed/ Irrigated with Irrigated with Saline Saline -Foul Odor after Cleansing No No -Bioengineered Tissue No No -Bleeding Controlled with Pressure Pressure -Treatment Response Procedure Procedure Tolerated Well Tolerated Well -Offloading No No -Debridement - Subq, 1st 20sq cm Yes Yes 13. LLE lateral -Time 11:40 10:30 -Correct Patient Yes Yes -Correct Side, Site, Position Yes Yes -Correct Procedure Yes Yes -Procedure Performed Yes Yes -Type of Procedure Debridement Debridement -Clinical Debridement Subcutaneous Subcutaneous -Tissue Removed Subcutaneous Subcutaneous -Post Debridement (cm) - Length 0.5 0.5 -Post Debridement (cm) - Width 0.5 0.6 -Post Debridement (cm) - Depth 0.2 0.2 -Total Square (Post) (cm) 0.25 0.30 -Area of Debridement (cm) - Length 0.5 0.5 -Area of Debridement (cm) - Width 0.5 0.6 -Total Square (Area) (cm) 0.25 0.30 -Tunneling No No -Undermining/Tunneling No No -Circular Undermining No No -Wound/Ulcer Outcome Not Healed Not Healed -Ulcer Cleansing Rinsed/ Rinsed/ Irrigated with Irrigated with Saline Saline -Foul Odor after Cleansing No No -Bioengineered Tissue No No -Bleeding Controlled with Pressure Pressure -Treatment Response Procedure Procedure Tolerated Well Tolerated Well -Offloading No No -Debridement - Subq, 20sq cm No No Pain Scale: 0-10 Numeric Is Patient Pain Free? Yes Yes WC - Nurse 3 - General Ulcer D/C NN Start: 04/16/22 11:00 Freq: Status: Active Protocol: Activity Type Activity Date Activity User E-sign Co-sign Detail Recorded Client Recorded Date Recorded By Document 04/16/22 12:01 RB [id number] 04/16/22 12:03 RB Document 04/23/22 11:06 AK [id number] 04/23/22 11:07 AK 04/16/22 04/23/22 12:01 11:06 Wound Care Nurse 3 14. RLE medial -Ulcer Cleansing Rinsed/ Rinsed/ Irrigated with Irrigated with Saline Saline -Foul Odor after Cleansing No -Negative Pressure Wound Therapy N/A -Primary Dressing Applied Promogran C Hydrogel ($), Promogran -Other Dressing hydrogel -Primary Dressing Covered/Secured with Dry Gauze Dry Gauze -Other Covering abd -Promogran 1 0 13. LLE lateral -Ulcer Cleansing Rinsed/ Irrigated with Saline -Other Dressing promogran, hydrogel -Primary Dressing Covered/Secured with Dry Gauze -Other Covering abd bilateral -Multi-Layered Wrap Application Unna Boot - Unna Boot - Bilateral ($) Bilateral ($) -Unna Boots (Bilat) ($) 2 2 Treatment Response Procedure Tolerated Well Pain Scale: 0-10 Numeric Is Patient Pain Free? Yes Yes WC - Visit Discharge Discharge Condition Stable Stable Ambulatory Status Ambulatory, Ambulatory, Walker Walker Transportation Private Auto Private Auto Medication Reconcilliation completed & No Yes provided to patient/care provider Clinical Summary of Care Provided Yes Yes Additional Wound Wound debrided: left lateral LE Laterality: Left Type of Debridement: Excisional debridement Anesthesia Used: 4% Lidocaine Solution and 5% Lidocaine Gel Depth: Down to and including healthy tissue and in the subcutaneous layer Percentage of wound debrided: 100 Instrument Used: 5mm curette Tissue Removed: Yellow slough, devitalized tissue Severity: Fat Layer Exposed Amount of bleeding with debridement: Mild Bleeding Controlled with: Compression and gauze Patient tolerated procedure: Patient tolerated procedure well Assessment/Plan Assessment/Plan (1) Ulcer of right lower extremity with fat layer exposed: CODE(S): L97.912 - Non-pressure chronic ulcer of unspecified part of right lower leg with fat layer exposed (2) Ulcer of left lower extremity with fat layer exposed: CODE(S): L97.922 - Non-pressure chronic ulcer of unspecified part of left lower leg with fat layer exposed (3) Venous insufficiency: CODE(S): I87.2 - Venous insufficiency (chronic) (peripheral) (4) Edema: CODE(S): R60.9 - Edema, unspecified QUALIFIERS: Edema type: unspecified Qualified Code(s): R60.9 - Edema, unspecified (5) History of CVA (cerebrovascular accident): CODE(S): Z86.73 - Personal history of transient ischemic attack (TIA), and cerebral infarction without residual deficits (6) Venous ulcer of left lower extremity with varicose veins: CODE(S): I83.029 - Varicose veins of left lower extremity with ulcer of unspecified site (7) Venous ulcer of both lower extremities with varicose veins: CODE(S): I83.019 - Varicose veins of right lower extremity with ulcer of unspecified site; I83.029 - Varicose veins of left lower extremity with ulcer of unspecified site (8) Venous ulcers of both lower extremities: CODE(S): I87.2 - Venous insufficiency (chronic) (peripheral) (9) Lymphedema: CODE(S): I89.0 - Lymphedema, not elsewhere classified PLAN: Thomas Mauricio's ulcers were evaluated and debrided today at the wound healing center. He has been treated since November by his primary care physician using calcium alginate and UNNA boot therapy and he developed significant slough necessitating treatment at the wound healing center for venous stasis ulcers of his bilateral lower extremities to undergo excisional debridement. He tolerated debridement well. His ulcers are going to be dressed with promogran for moderate drainage and UNNA boot b/l. This will be changed by home health on Tuesday. Will continue to use conventional treatment his insurance denied treatment with advanced wound healing product. He is encouraged to elevate his legs and use lymphedema pumps. We discussed importance of nutrition and increased protein intake for wound healing. He will call if there is increased drainage, erythema, fever, chills, or pain. He will return in 1 week for follow up.
[2022-04-30 10:04] VITALS: BP 142/71; PULSE 71; TEMP 36.2
--- NOTE | 2022-04-30 12:12 | PN.PCM_ITS ---
History of Present Illness Date of Service: 04/30/22 Chief Complaint: venous ulcers of bilateral lower extremities History of Wound: Mauricio is a 66 yo gentleman who is here today for evaluation of ulcers to to his bilateral lower legs. He has been treated multiple times in the past at the wound healing center for similar ulcers. The left LE ulcer started after he developed increased swelling and blisters of left leg in September and the right leg started sometime at the end of October He was prescribed Doxycycline in September, October, and November. He denies improvement and is having swelling to left his calf and thigh. He has been having swelling to both lower extremities for many years and it has worsened over the last few months. He has clear yellow drainage and redness without odor or warmth. He is anti- coagulated on coumadin. He has been washing with Dial soap and witch ifrah. He had been using Collagen at times and using Calcium Alginate and covering with gauze during October. He was treated with UNNA boot therapy Since November 19, 2021 using calcium alginate over the ulcers under the UNNA boots. He was referred to the wound center for ongoing treatment as his ulcers have not improved in the last few weeks and slough has increased. His ulcers have moderate drainage. Subjective Subjective Mauricio returns today for follow up of venous ulcers of his bilateral LE. He tolerated treatment with UNNA compression. His edema is slightly better compared to last week. He denies any fever, chills, increased drainage, odor or pain. Objective Data Objective Data Vital Signs: Vital Signs Temp Pulse Resp BP 97.2 F L 71 18 142/71 H 04/30/22 10:04 04/30/22 10:04 04/16/22 11:00 04/30/22 10:04 Physical Exam Const alert, oriented x3 and no apparent distress General Appearance: cooperative and comfortable HEENT normocephalic and head/scalp atraumatic Resp normal respiratory effort Effort and Inspection: able to speak in complete sentences Cardio regular rate and regular rhythm Skin Wounds: wounds noted Wound Narrative: as in clinical panel Psych mental status grossly normal, thought process normal, cooperative and affect normal Debridement Note Debridement Note Wound debrided: right medial ulcer Laterality: Right Type of Debridement: Excisional debridement Anesthesia Used: 4% Lidocaine Solution, 5% Lidocaine Gel and Cetacaine Depth: Down to and including healthy tissue and in the subcutaneous layer Percentage of wound debrided: 100 Instrument Used: 3mm curette and - (gauze) Tissue Removed: Yellow slough, devitalized tissue Severity: Fat Layer Exposed Amount of bleeding with debridement: Mild Bleeding Controlled with: Compression and gauze Patient tolerated procedure: Patient tolerated procedure well Post-Debridement Measurements and Additional Note: Post-Debridement Measurements/Treatment DEBBIE - Nurse 1 - General Ulcer Assessment Start: 04/16/22 11:00 Freq: Status: Active Protocol: ONDINA Activity Type Activity Date Activity User E-sign Co-sign Detail Recorded Client Recorded Date Recorded By Document 04/16/22 11:00 RB [id number] 04/16/22 11:30 RB Document 04/23/22 10:05 AK [id number] 04/23/22 10:09 AK Document 04/30/22 10:04 KR [id number] 04/30/22 10:10 KR 04/16/22 04/23/22 04/30/22 11:00 10:05 10:04 DEBBIE - Today's Visit Information Type of service Follow-up Visit Follow-up Visit Follow-up Visit (Physician/EMERGENCY DETAIL DRIVER (Physician/EMERGENCY DETAIL DRIVER (Physician/EMERGENCY DETAIL DRIVER ) ) ) Arrival Mode Ambulatory, Ambulatory, Ambulatory Walker Walker Transfer Assistance None Patient Identification Verified (Name & Yes Yes Yes ) Patient Requires Transmission-Based No Precautions Vital Signs Temperature (97.8 F-99.1 F) 97 F L 97.2 F L 97.2 F L Temperature Source Temporal Temporal Temporal Pulse Rate (60-100) 59 L 71 71 Pulse Location Monitor Monitor Monitor Respiratory Rate (12-18) 18 Respiratory rate source Observation Blood Pressure (90/60-120/80) 103/59 L 130/67 H 142/71 H Blood Pressure Mean (mm Hg) 73 88 94 Source Monitor Monitor Monitor Position Sitting Semi-Fowlers Blood Pressure Location Right Arm Right Arm History Since Last Visit- (Skip if this is Patient's initial visit) Have you changed medications since your No No No last visit? Any new allergies or adverse reactions No No No Had a fall/change in ADL's that may No No No increase risk of falls Signs or symptoms of abuse and/or No No No neglect since last visit Have you been in the hospital since your No No No last visit? Has dressing in place as prescribed Yes Yes Yes Has compression in place as prescribed Yes Yes Yes Has offloadiing in place as prescribed No N/A N/A Experienced any changes in pain level or No No No management Left Footwear Regular Shoe Regular Shoe Regular Shoe Right Footwear Regular Shoe Regular Shoe Regular Shoe Pain Scale: 0-10 Numeric Is Patient Pain Free? Yes Yes Yes WC - Nurse 1 - General Ulcer Measurement Start: 04/16/22 11:00 Freq: Status: Active Protocol: Activity Type Activity Date Activity User E-sign Co-sign Detail Recorded Client Recorded Date Recorded By Document 04/16/22 11:00 RB [id number] 04/16/22 11:30 RB Document 04/23/22 10:05 AK [id number] 04/23/22 10:09 AK Document 04/30/22 10:04 KR [id number] 04/30/22 10:10 KR 04/16/22 04/23/22 04/30/22 11:00 10:05 10:04 Wound Center Nurse 1 14. RLE medial -Combined with other wound No No -Current Size (cm) - Length 3.7 3.2 3.2 -Current Size (cm) - Width 1.4 1.1 2 -Current Size (cm) - Depth 0.1 0.1 0.2 -Total Square Cm 5.18 3.52 6.4 -Date of Last Picture (Recall this 04/23/22 field) -Photo Taken Yes Yes -Tunneling No No -Undermining/Tunneling No No -Circular Undermining No No -Change in Wound Grade/Stage No -Exudate Amt Large Medium Small -Exudate Type Serosanguineous Serosanguineous Serosanguineous -Wound Margin Distinct, Distinct, Distinct, Outline Outline Outline Attached Attached Attached -Granulation Amt Medium (34-66%) Medium (34-66%) Medium (34-66%) -Granulation Quality [place],Red [place],Red [place] -Slough/Fibrin Yes Yes -Necrosis Amt Medium (34-66%) Small (1-33%) Medium (34-66%) -Necrotic Tissue Type Adherent Slough Adherent Slough Adherent Slough -Structure Exposed N/A N/A -Texture (Marie-wound Skin Appearance) Assessed, No Abnormality, Assessed, Scarring Assessed Scarring -Moisture (Marie-wound Skin Appearance) Assessed No Abnormality, Assessed Assessed -Color (Marie-wound Skin Appearance) Assessed No Abnormality, No Abnormality, Assessed Assessed -Temperature (Marie-wound Skin No Abnormality No Abnormality No Abnormality Appearance) (Pt Warm) (Pt Warm) (Pt Warm) -Tenderness on Palpation (Marie-wound No No No Skin Appearance) -Ulcer Cleansing Wound Cleanser Soap and Water Soap and Water -Foul Odor after Cleansing No Yes, Due to No Product Use -Anesthetic Used 5% Lidocaine 5% Lidocaine 5% Lidocaine Gel Gel Gel 13. LLE lateral -Combined with other wound No No -Current Size (cm) - Length 0.8 0.6 0.2 -Current Size (cm) - Width 0.7 0.5 0.2 -Current Size (cm) - Depth 0.1 0.1 0.2 -Total Square Cm 0.56 0.30 0.04 -Date of Last Picture (Recall this 04/23/22 field) -Photo Taken Yes Yes -Epithelialization None Present -Tunneling No No -Undermining/Tunneling No No -Circular Undermining No No -Change in Wound Grade/Stage No -Exudate Amt Small Medium Small -Exudate Type Serosanguineous Serosanguineous Serosanguineous -Wound Margin Distinct, Distinct, Outline Outline Attached Attached -Granulation Amt Medium (34-66%) Small (1-33%) Large (67-100%) -Granulation Quality [place] N/A,[place],Red Red -Slough/Fibrin Yes Yes -Necrosis Amt Large (67-100%) Small (1-33%) None Present (0 %) -Necrotic Tissue Type Adherent Slough Adherent Slough -Structure Exposed N/A N/A -Texture (Marie-wound Skin Appearance) Assessed No Abnormality, Assessed, Assessed Scarring -Moisture (Marie-wound Skin Appearance) Assessed No Abnormality, Assessed Assessed -Color (Marie-wound Skin Appearance) Assessed No Abnormality, No Abnormality, Assessed Assessed -Temperature (Marie-wound Skin No Abnormality No Abnormality Appearance) (Pt Warm) (Pt Warm) -Tenderness on Palpation (Marie-wound No No No Skin Appearance) -Ulcer Cleansing Wound Cleanser Rinsed/ Soap and Water Irrigated with Saline -Foul Odor after Cleansing No No No -Anesthetic Used 5% Lidocaine 5% Lidocaine 5% Lidocaine Gel Gel Gel Lower Limb Edema Present Yes Right Calf (cm) 46.5 41.5 43.7 Right Ankle (cm) 28.5 27.5 27.3 Left Calf (cm) 45 45 46.5 Left Ankle (cm) 31.2 28 28.7 WC - Nurse 2 - General Ulcer CM Notes Start: 04/16/22 11:00 Freq: Status: Active Protocol: Activity Type Activity Date Activity User E-sign Co-sign Detail Recorded Client Recorded Date Recorded By Document 04/16/22 11:39 MW [id number] 04/16/22 11:48 MW Document 04/23/22 10:17 MW [id number] 04/23/22 10:31 MW Document 04/30/22 10:28 MW [id number] 04/30/22 10:40 MW 04/16/22 04/23/22 04/30/22 11:39 10:17 10:28 Wound Center Nurse 2 14. RLE medial -Time 11:39 10:18 10:30 -Correct Patient Yes Yes Yes -Correct Side, Site, Position Yes Yes Yes -Correct Procedure Yes Yes Yes -Procedure Performed Yes Yes Yes -Type of Procedure Debridement Debridement Debridement -Clinical Debridement Subcutaneous Subcutaneous Epidermis / Dermis -Tissue Removed Subcutaneous Subcutaneous Epidermis -Post Debridement (cm) - Length 3.1 3.3 3.2 -Post Debridement (cm) - Width 2.0 2.2 1.8 -Post Debridement (cm) - Depth 0.2 0.1 0.1 -Total Square (Post) (cm) 6.20 7.26 5.76 -Area of Debridement (cm) - Length 3.1 3.3 3.2 -Area of Debridement (cm) - Width 2.0 2.2 1.8 -Total Square (Area) (cm) 6.20 7.26 5.76 -Tunneling No No No -Undermining/Tunneling No No No -Circular Undermining No No No -Wound/Ulcer Outcome Not Healed Not Healed Not Healed -Ulcer Cleansing Rinsed/ Rinsed/ Rinsed/ Irrigated with Irrigated with Irrigated with Saline Saline Saline -Foul Odor after Cleansing No No No -Bioengineered Tissue No No No -Bleeding Controlled with Pressure Pressure Pressure -Treatment Response Procedure Procedure Procedure Tolerated Well Tolerated Well Tolerated Well -Offloading No No No -Debridement - Open, 1st 20sq cm Yes -Debridement - Subq, 1st 20sq cm Yes Yes 13. LLE lateral -Time 11:40 10:30 10:30 -Correct Patient Yes Yes Yes -Correct Side, Site, Position Yes Yes Yes -Correct Procedure Yes Yes Yes -Procedure Performed Yes Yes No -Type of Procedure Debridement Debridement -Clinical Debridement Subcutaneous Subcutaneous -Tissue Removed Subcutaneous Subcutaneous -Post Debridement (cm) - Length 0.5 0.5 0.3 -Post Debridement (cm) - Width 0.5 0.6 0.2 -Post Debridement (cm) - Depth 0.2 0.2 0.1 -Total Square (Post) (cm) 0.25 0.30 0.06 -Area of Debridement (cm) - Length 0.5 0.5 -Area of Debridement (cm) - Width 0.5 0.6 -Total Square (Area) (cm) 0.25 0.30 -Tunneling No No No -Undermining/Tunneling No No No -Circular Undermining No No No -Wound/Ulcer Outcome Not Healed Not Healed Not Healed -Ulcer Cleansing Rinsed/ Rinsed/ Irrigated with Irrigated with Saline Saline -Foul Odor after Cleansing No No -Bioengineered Tissue No No -Bleeding Controlled with Pressure Pressure -Treatment Response Procedure Procedure Tolerated Well Tolerated Well -Offloading No No -Debridement - Subq, 1st 20sq cm No No Pain Scale: 0-10 Numeric Is Patient Pain Free? Yes Yes Yes WC - Nurse 3 - General Ulcer D/C NN Start: 04/16/22 11:00 Freq: Status: Active Protocol: Activity Type Activity Date Activity User E-sign Co-sign Detail Recorded Client Recorded Date Recorded By Document 04/16/22 12:01 RB [id number] 04/16/22 12:03 RB Document 04/23/22 11:06 AK [id number] 04/23/22 11:07 AK 04/16/22 04/23/22 12:01 11:06 Wound Care Nurse 3 14. RLE medial -Ulcer Cleansing Rinsed/ Rinsed/ Irrigated with Irrigated with Saline Saline -Foul Odor after Cleansing No -Negative Pressure Wound Therapy N/A -Primary Dressing Applied Promogran C Hydrogel ($), Promogran -Other Dressing hydrogel -Primary Dressing Covered/Secured with Dry Gauze Dry Gauze -Other Covering abd -Promogran 1 0 13. LLE lateral -Ulcer Cleansing Rinsed/ Irrigated with Saline -Other Dressing promogran, hydrogel -Primary Dressing Covered/Secured with Dry Gauze -Other Covering abd bilateral -Multi-Layered Wrap Application Unna Boot - Unna Boot - Bilateral ($) Bilateral ($) -Unna Boots (Bilat) ($) 2 2 Treatment Response Procedure Tolerated Well Pain Scale: 0-10 Numeric Is Patient Pain Free? Yes Yes WC - Visit Discharge Discharge Condition Stable Stable Ambulatory Status Ambulatory, Ambulatory, Walker Walker Transportation Private Auto Private Auto Medication Reconcilliation completed & No Yes provided to patient/care provider Clinical Summary of Care Provided Yes Yes Additional Wound Wound debrided: left lateral ulcer Laterality: Left Type of Debridement: Excisional debridement Anesthesia Used: 4% Lidocaine Solution Depth: Down to and including healthy tissue and in the subcutaneous layer Percentage of wound debrided: 100 Instrument Used: 3mm curette Tissue Removed: Yellow slough, devitalized tissue Severity: Fat Layer Exposed Amount of bleeding with debridement: Mild Bleeding Controlled with: Compression and gauze Patient tolerated procedure: Patient tolerated procedure well Assessment/Plan Assessment/Plan (1) Ulcer of right lower extremity with fat layer exposed: CODE(S): L97.912 - Non-pressure chronic ulcer of unspecified part of right lower leg with fat layer exposed (2) Ulcer of left lower extremity with fat layer exposed: CODE(S): L97.922 - Non-pressure chronic ulcer of unspecified part of left lower leg with fat layer exposed (3) Venous insufficiency: CODE(S): I87.2 - Venous insufficiency (chronic) (peripheral) (4) Edema: CODE(S): R60.9 - Edema, unspecified QUALIFIERS: Edema type: unspecified Qualified Code(s): R60.9 - Edema, unspecified (5) History of CVA (cerebrovascular accident): CODE(S): Z86.73 - Personal history of transient ischemic attack (TIA), and cerebral infarction without residual deficits (6) Venous ulcer of left lower extremity with varicose veins: CODE(S): I83.029 - Varicose veins of left lower extremity with ulcer of un specified site (7) Venous ulcer of both lower extremities with varicose veins: CODE(S): I83.019 - Varicose veins of right lower extremity with ulcer of unspecified site; I83.029 - Varicose veins of left lower extremity with ulcer of unspecified site (8) Venous ulcers of both lower extremities: CODE(S): I87.2 - Venous insufficiency (chronic) (peripheral) (9) Lymphedema: CODE(S): I89.0 - Lymphedema, not elsewhere classified PLAN: Thomas Mauricio's ulcers were evaluated and debrided today at the wound healing center. He has been treated since November by his primary care physician using calcium alginate and UNNA boot therapy and he developed significant slough necessitating treatment at the wound healing center for venous stasis ulcers of his bilateral lower extremities to undergo excisional debridement. He tolerated debridement well. His ulcers are going to be dressed with promogran for moderate drainage and UNNA boot on right. This will be changed by home health on Tuesday. The left will be dressed with promogran and gauze and compressed KATE bandage or compression stocking. Will continue to use conventional treatment his insurance denied treatment with advanced wound healing product. He is encouraged to elevate his legs and use lymphedema pumps. We discussed importance of nutrition and increased protein intake for wound healing. He will call if there is increased drainage, erythema, fever, chills, or pain. He will return in 2 weeks for follow up.
[2022-05-07 10:16] VITALS: BP 114/69; PULSE 60; RESP 18; TEMP 36.6
--- NOTE | 2022-05-07 14:15 | PN.PCM_ITS ---
History of Present Illness Date of Service: 05/07/22 Chief Complaint: venous ulcers of bilateral lower extremities History of Wound: Mauricio is a 66 yo gentleman who is here today for evaluation of ulcers to to his bilateral lower legs. He has been treated multiple times in the past at the wound healing center for similar ulcers. The left LE ulcer started after he developed increased swelling and blisters of left leg in September and the right leg started sometime at the end of October He was prescribed Doxycycline in September, October, and November. He denies improvement and is having swelling to left his calf and thigh. He has been having swelling to both lower extremities for many years and it has worsened over the last few months. He has clear yellow drainage and redness without odor or warmth. He is anti- coagulated on coumadin. He has been washing with Dial soap and witch ifrah. He had been using Collagen at times and using Calcium Alginate and covering with gauze during October. He was treated with UNNA boot therapy Since November 19, 2021 using calcium alginate over the ulcers under the UNNA boots. He was referred to the wound center for ongoing treatment as his ulcers have not improved in the last few weeks and slough has increased. His ulcers have moderate drainage. Subjective Subjective Mauricio returns today for follow up of venous ulcers of his bilateral LE. He tolerated treatment with UNNA compression to his right leg and daily dressings with KATE compression for left leg. His edema is slightly better compared to last week. He denies any fever, chills, increased drainage, odor or pain. Objective Data Objective Data Vital Signs: Vital Signs Temp Pulse Resp BP 97.8 F 60 18 114/69 05/07/22 10:16 05/07/22 10:16 05/07/22 10:16 05/07/22 10:16 Physical Exam Const alert, oriented x3 and no apparent distress General Appearance: cooperative and comfortable HEENT normocephalic and head/scalp atraumatic Resp normal respiratory effort Effort and Inspection: able to speak in complete sentences Cardio regular rate and regular rhythm Skin Wounds: wounds noted Wound Narrative: as in clinical panel Psych mental status grossly normal, thought process normal, cooperative and affect normal Debridement Note Debridement Note Wound debrided: right medial ulcer Laterality: Right Type of Debridement: Excisional debridement Anesthesia Used: 4% Lidocaine Solution, 5% Lidocaine Gel and Cetacaine Depth: Down to and including healthy tissue and in the subcutaneous layer Percentage of wound debrided: 100 Instrument Used: 3mm curette and - (gauze) Tissue Removed: Yellow slough, devitalized tissue Severity: Fat Layer Exposed Amount of bleeding with debridement: Mild Bleeding Controlled with: Compression and gauze Patient tolerated procedure: Patient tolerated procedure well Post-Debridement Measurements and Additional Note: Post-Debridement Measurements/Treatment DEBBIE - Nurse 1 - General Ulcer Assessment Start: 04/16/22 11:00 Freq: Status: Active Protocol: ONDINA Activity Type Activity Date Activity User E-sign Co-sign Detail Recorded Client Recorded Date Recorded By Document 04/16/22 11:00 RB [id number] 04/16/22 11:30 RB Document 04/23/22 10:05 AK [id number] 04/23/22 10:09 AK Document 04/30/22 10:04 KR [id number] 04/30/22 10:10 KR Document 05/07/22 10:16 RB [id number] 05/07/22 10:26 RB 04/16/22 04/23/22 04/30/22 11:00 10:05 10:04 - Today's Visit Information Type of service Follow-up Visit Follow-up Visit Follow-up Visit (Physician/BIOMEDICAL REPAIR TECHNICIAN (Physician/BIOMEDICAL REPAIR TECHNICIAN (Physician/BIOMEDICAL REPAIR TECHNICIAN ) ) ) Arrival Mode Ambulatory, Ambulatory, Ambulatory Walker Walker Transfer Assistance None Patient Identification Verified (Name & Yes Yes Yes ) Patient Requires Transmission-Based No Precautions Vital Signs Temperature (97.8 F-99.1 F) 97 F L 97.2 F L 97.2 F L Temperature Source Temporal Temporal Temporal Pulse Rate (60-100) 59 L 71 71 Pulse Location Monitor Monitor Monitor Respiratory Rate (12-18) 18 Respiratory rate source Observation Blood Pressure (90/60-120/80) 103/59 L 130/67 H 142/71 H Blood Pressure Mean (mm Hg) 73 88 94 Source Monitor Monitor Monitor Position Sitting Semi-Fowlers Blood Pressure Location Right Arm Right Arm History Since Last Visit- (Skip if this is Patient's initial visit) Have you changed medications since your No No No last visit? Any new allergies or adverse reactions No No No Had a fall/change in ADL's that may No No No increase risk of falls Signs or symptoms of abuse and/or No No No neglect since last visit Have you been in the hospital since your No No No last visit? Has dressing in place as prescribed Yes Yes Yes Has compression in place as prescribed Yes Yes Yes Has offloadiing in place as prescribed No N/A N/A Experienced any changes in pain level or No No No management Left Footwear Regular Shoe Regular Shoe Regular Shoe Right Footwear Regular Shoe Regular Shoe Regular Shoe Pain Scale: 0-10 Numeric Is Patient Pain Free? Yes Yes Yes 05/07/22 10:16 - Today's Visit Information Type of service Follow-up Visit (Physician/BIOMEDICAL REPAIR TECHNICIAN ) Arrival Mode Ambulatory, Walker Transfer Assistance None Patient Identification Verified (Name & Yes ) Patient Requires Transmission-Based No Precautions Vital Signs Temperature (97.8 F-99.1 F) 97.8 F Temperature Source Temporal Pulse Rate (60-100) 60 Pulse Location Monitor Respiratory Rate (12-18) 18 Respiratory rate source Observation Blood Pressure (90/60-120/80) 114/69 Blood Pressure Mean (mm Hg) 84 Source Monitor Position Semi-Fowlers Blood Pressure Location Left Arm History Since Last Visit- (Skip if this is Patient's initial visit) Have you changed medications since your No last visit? Any new allergies or adverse reactions No Had a fall/change in ADL's that may No increase risk of falls Signs or symptoms of abuse and/or No neglect since last visit Have you been in the hospital since your No last visit? Has dressing in place as prescribed Yes Has compression in place as prescribed No Has offloadiing in place as prescribed No Experienced any changes in pain level or No management Left Footwear Right Footwear Pain Scale: 0-10 Numeric Is Patient Pain Free? Yes - Nurse 1 - General Ulcer Measurement Start: 04/16/22 11:00 Freq: Status: Active Protocol: Activity Type Activity Date Activity User E-sign Co-sign Detail Recorded Client Recorded Date Recorded By Document 04/16/22 11:00 RB [id number] 04/16/22 11:30 RB Document 04/23/22 10:05 AK [id number] 04/23/22 10:09 AK Document 04/30/22 10:04 KR [id number] 04/30/22 10:10 KR Document 05/07/22 10:16 RB [id number] 05/07/22 10:26 RB 04/16/22 04/23/22 04/30/22 11:00 10:05 10:04 Wound Center Nurse 1 14. RLE medial -Combined with other wound No No -Current Size (cm) - Length 3.7 3.2 3.2 -Current Size (cm) - Width 1.4 1.1 2 -Current Size (cm) - Depth 0.1 0.1 0.2 -Total Square Cm 5.18 3.52 6.4 -Date of Last Picture (Recall this 04/23/22 field) -Photo Taken Yes Yes -Tunneling No No -Undermining/Tunneling No No -Circular Undermining No No -Change in Wound Grade/Stage No -Exudate Amt Large Medium Small -Exudate Type Serosanguineous Serosanguineous Serosanguineous -Wound Margin Distinct, Distinct, Distinct, Outline Outline Outline Attached Attached Attached -Granulation Amt Medium (34-66%) Medium (34-66%) Medium (34-66%) -Granulation Quality [place]Red [place] -Slough/Fibrin Yes Yes -Necrosis Amt Medium (34-66%) Small (1-33%) Medium (34-66%) -Necrotic Tissue Type Adherent Slough Adherent Slough Adherent Slough -Structure Exposed N/A N/A -Texture (Marie-wound Skin Appearance) Assessed, No Abnormality, Assessed, Scarring Assessed Scarring -Moisture (Marie-wound Skin Appearance) Assessed No Abnormality, Assessed Assessed -Color (Marie-wound Skin Appearance) Assessed No Abnormality, No Abnormality, Assessed Assessed -Temperature (Marie-wound Skin No Abnormality No Abnormality No Abnormality Appearance) (Pt Warm) (Pt Warm) (Pt Warm) -Tenderness on Palpation (Marie-wound No No No Skin Appearance) -Ulcer Cleansing Wound Cleanser Soap and Water Soap and Water -Foul Odor after Cleansing No Yes, Due to No Product Use -Anesthetic Used 5% Lidocaine 5% Lidocaine 5% Lidocaine Gel Gel Gel 13. LLE lateral -Combined with other wound No No -Current Size (cm) - Length 0.8 0.6 0.2 -Current Size (cm) - Width 0.7 0.5 0.2 -Current Size (cm) - Depth 0.1 0.1 0.2 -Total Square Cm 0.56 0.30 0.04 -Date of Last Picture (Recall this 04/23/22 field) -Photo Taken Yes Yes -Epithelialization None Present -Tunneling No No -Undermining/Tunneling No No -Circular Undermining No No -Change in Wound Grade/Stage No -Exudate Amt Small Medium Small -Exudate Type Serosanguineous Serosanguineous Serosanguineous -Wound Margin Distinct, Distinct, Outline Outline Attached Attached -Granulation Amt Medium (34-66%) Small (1-33%) Large (67-100%) -Granulation Quality [place] N/A,[place],Red Red -Slough/Fibrin Yes Yes -Necrosis Amt Large (67-100%) Small (1-33%) None Present (0 %) -Necrotic Tissue Type Adherent Slough Adherent Slough -Structure Exposed N/A N/A -Texture (Marie-wound Skin Appearance) Assessed No Abnormality, Assessed, Assessed Scarring -Moisture (Marie-wound Skin Appearance) Assessed No Abnormality, Assessed Assessed -Color (Marie-wound Skin Appearance) Assessed No Abnormality, No Abnormality, Assessed Assessed -Temperature (Marie-wound Skin No Abnormality No Abnormality Appearance) (Pt Warm) (Pt Warm) -Tenderness on Palpation (Marie-wound No No No Skin Appearance) -Ulcer Cleansing Wound Cleanser Rinsed/ Soap and Water Irrigated with Saline -Foul Odor after Cleansing No No No -Anesthetic Used 5% Lidocaine 5% Lidocaine 5% Lidocaine Gel Gel Gel Lower Limb Edema Present Yes Right Calf (cm) 46.5 41.5 43.7 Right Ankle (cm) 28.5 27.5 27.3 Left Calf (cm) 45 45 46.5 Left Ankle (cm) 31.2 28 28.7 05/07/22 10:16 Wound Center Nurse 1 14. RLE medial -Combined with other wound No -Current Size (cm) - Length 3 -Current Size (cm) - Width 1.5 -Current Size (cm) - Depth 0.1 -Total Square Cm 4.5 -Date of Last Picture (Recall this field) -Photo Taken Yes -Tunneling No -Undermining/Tunneling No -Circular Undermining No -Change in Wound Grade/Stage -Exudate Amt Large -Exudate Type Serosanguineous -Wound Margin Distinct, Outline Attached -Granulation Amt Medium (34-66%) -Granulation Quality [place],Red -Slough/Fibrin Yes -Necrosis Amt Small (1-33%) -Necrotic Tissue Type Adherent Slough -Structure Exposed N/A -Texture (Marie-wound Skin Appearance) Assessed, Scarring -Moisture (Marie-wound Skin Appearance) Assessed -Color (Marie-wound Skin Appearance) Assessed -Temperature (Marie-wound Skin No Abnormality Appearance) (Pt Warm) -Tenderness on Palpation (Marie-wound No Skin Appearance) -Ulcer Cleansing Wound Cleanser -Foul Odor after Cleansing No -Anesthetic Used 5% Lidocaine Gel 13. LLE lateral -Combined with other wound No -Current Size (cm) - Length 0.1 -Current Size (cm) - Width 0.1 -Current Size (cm) - Depth 0.1 -Total Square Cm 0.01 -Date of Last Picture (Recall this field) -Photo Taken Yes -Epithelialization -Tunneling No -Undermining/Tunneling No -Circular Undermining No -Change in Wound Grade/Stage -Exudate Amt Small -Exudate Type Serosanguineous -Wound Margin Distinct, Outline Attached -Granulation Amt Medium (34-66%) -Granulation Quality [place] -Slough/Fibrin Yes -Necrosis Amt Small (1-33%) -Necrotic Tissue Type Adherent Slough -Structure Exposed N/A -Texture (Marie-wound Skin Appearance) Assessed, Scarring -Moisture (Marie-wound Skin Appearance) Assessed -Color (Marie-wound Skin Appearance) Assessed -Temperature (Marie-wound Skin No Abnormality Appearance) (Pt Warm) -Tenderness on Palpation (Marie-wound No Skin Appearance) -Ulcer Cleansing Wound Cleanser -Foul Odor after Cleansing No -Anesthetic Used 5% Lidocaine Gel Lower Limb Edema Present Yes Right Calf (cm) 44 Right Ankle (cm) 28.5 Left Calf (cm) 48 Left Ankle (cm) 28 WC - Nurse 2 - General Ulcer CM Notes Start: 04/16/22 11:00 Freq: Status: Active Protocol: Activity Type Activity Date Activity User E-sign Co-sign Detail Recorded Client Recorded Date Recorded By Document 04/16/22 11:39 MW [id number] 04/16/22 11:48 MW Document 04/23/22 10:17 MW [id number] 04/23/22 10:31 MW Document 04/30/22 10:28 MW [id number] 04/30/22 10:40 MW Document 05/07/22 10:42 MW [id number] 05/07/22 10:58 MW 04/16/22 04/23/22 04/30/22 11:39 10:17 10:28 Wound Center Nurse 2 14. RLE medial -Time 11:39 10:18 10:30 -Correct Patient Yes Yes Yes -Correct Side, Site, Position Yes Yes Yes -Correct Procedure Yes Yes Yes -Procedure Performed Yes Yes Yes -Type of Procedure Debridement Debridement Debridement -Clinical Debridement Subcutaneous Subcutaneous Epidermis / Dermis -Tissue Removed Subcutaneous Subcutaneous Epidermis -Post Debridement (cm) - Length 3.1 3.3 3.2 -Post Debridement (cm) - Width 2.0 2.2 1.8 -Post Debridement (cm) - Depth 0.2 0.1 0.1 -Total Square (Post) (cm) 6.20 7.26 5.76 -Area of Debridement (cm) - Length 3.1 3.3 3.2 -Area of Debridement (cm) - Width 2.0 2.2 1.8 -Total Square (Area) (cm) 6.20 7.26 5.76 -Tunneling No No No -Undermining/Tunneling No No No -Circular Undermining No No No -Wound/Ulcer Outcome Not Healed Not Healed Not Healed -Ulcer Cleansing Rinsed/ Rinsed/ Rinsed/ Irrigated with Irrigated with Irrigated with Saline Saline Saline -Foul Odor after Cleansing No No No -Bioengineered Tissue No No No -Bleeding Controlled with Pressure Pressure Pressure -Treatment Response Procedure Procedure Procedure Tolerated Well Tolerated Well Tolerated Well -Offloading No No No -Debridement - Open, 1st 20sq cm Yes -Debridement - Subq, 1st 20sq cm Yes Yes 13. LLE lateral -Time 11:40 10:30 10:30 -Correct Patient Yes Yes Yes -Correct Side, Site, Position Yes Yes Yes -Correct Procedure Yes Yes Yes -Procedure Performed Yes Yes No -Type of Procedure Debridement Debridement -Clinical Debridement Subcutaneous Subcutaneous -Tissue Removed Subcutaneous Subcutaneous -Post Debridement (cm) - Length 0.5 0.5 0.3 -Post Debridement (cm) - Width 0.5 0.6 0.2 -Post Debridement (cm) - Depth 0.2 0.2 0.1 -Total Square (Post) (cm) 0.25 0.30 0.06 -Area of Debridement (cm) - Length 0.5 0.5 -Area of Debridement (cm) - Width 0.5 0.6 -Total Square (Area) (cm) 0.25 0.30 -Tunneling No No No -Undermining/Tunneling No No No -Circular Undermining No No No -Wound/Ulcer Outcome Not Healed Not Healed Not Healed -Ulcer Cleansing Rinsed/ Rinsed/ Irrigated with Irrigated with Saline Saline -Foul Odor after Cleansing No No -Bioengineered Tissue No No -Bleeding Controlled with Pressure Pressure -Treatment Response Procedure Procedure Tolerated Well Tolerated Well -Offloading No No -Debridement - Subq, 1st 20sq cm No No Pain Scale: 0-10 Numeric Is Patient Pain Free? Yes Yes Yes 05/07/22 10:42 Wound Center Nurse 2 14. RLE medial -Time 10:43 -Correct Patient Yes -Correct Side, Site, Position Yes -Correct Procedure Yes -Procedure Performed Yes -Type of Procedure Debridement -Clinical Debridement Subcutaneous -Tissue Removed Subcutaneous -Post Debridement (cm) - Length 2.8 -Post Debridement (cm) - Width 1.8 -Post Debridement (cm) - Depth 0.1 -Total Square (Post) (cm) 5.04 -Area of Debridement (cm) - Length 2.8 -Area of Debridement (cm) - Width 1.8 -Total Square (Area) (cm) 5.04 -Tunneling No -Undermining/Tunneling No -Circular Undermining No -Wound/Ulcer Outcome Not Healed -Ulcer Cleansing Rinsed/ Irrigated with Saline -Foul Odor after Cleansing No -Bioengineered Tissue No -Bleeding Controlled with Pressure -Treatment Response Procedure Tolerated Well -Offloading No -Debridement - Open, 1st 20sq cm -Debridement - Subq, 1st 20sq cm Yes 13. LLE lateral -Time 10:46 -Correct Patient Yes -Correct Side, Site, Position Yes -Correct Procedure Yes -Procedure Performed Yes -Type of Procedure Debridement -Clinical Debridement Subcutaneous -Tissue Removed Subcutaneous -Post Debridement (cm) - Length 0.1 -Post Debridement (cm) - Width 0.1 -Post Debridement (cm) - Depth 0.1 -Total Square (Post) (cm) 0.01 -Area of Debridement (cm) - Length 0.1 -Area of Debridement (cm) - Width 0.1 -Total Square (Area) (cm) 0.01 -Tunneling No -Undermining/Tunneling No -Circular Undermining No -Wound/Ulcer Outcome Not Healed -Ulcer Cleansing Rinsed/ Irrigated with Saline -Foul Odor after Cleansing No -Bioengineered Tissue No -Bleeding Controlled with Pressure -Treatment Response Procedure Tolerated Well -Offloading No -Debridement - Subq, 1st 20sq cm No Pain Scale: 0-10 Numeric Is Patient Pain Free? Yes WC - Nurse 3 - General Ulcer D/C NN Start: 04/16/22 11:00 Freq: Status: Active Protocol: Activity Type Activity Date Activity User E-sign Co-sign Detail Recorded Client Recorded Date Recorded By Document 04/16/22 12:01 RB [id number] 04/16/22 12:03 RB Document 04/23/22 11:06 AK [id number] 04/23/22 11:07 AK Edit Result 04/23/22 11:06 AK (1) [id number] 05/03/22 06:43 PL Document 05/07/22 11:27 AK [id number] 05/07/22 11:29 AK (1) Right - Multi-Layered Wrap Application => Unna Boot - Right => ($) 04/16/22 04/23/22 05/07/22 12:01 11:06 11:27 Wound Care Nurse 3 14. RLE medial -Ulcer Cleansing Rinsed/ Rinsed/ Rinsed/ Irrigated with Irrigated with Irrigated with Saline Saline Saline -Foul Odor after Cleansing No No -Negative Pressure Wound Therapy N/A N/A -Primary Dressing Applied Promogran C Hydrogel ($), Promogran -Other Dressing hydrogel own ag, hydrogel, gauze and shefali -Primary Dressing Covered/Secured with Dry Gauze Dry Gauze -Other Covering abd -Promogran 1 0 13. LLE lateral -Ulcer Cleansing Rinsed/ Rinsed/ Irrigated with Irrigated with Saline Saline -Other Dressing promogran, own ag, hydrogel hydrogel, gauze -Primary Dressing Covered/Secured with Dry Gauze -Other Covering abd Right -Multi-Layered Wrap Application Unna Boot - Right ($) bilateral -Multi-Layered Wrap Application Unna Boot - Unna Boot - Bilateral ($) Bilateral ($) -Unna Boots (Bilat) ($) 2 2 Treatment Response Procedure Tolerated Well Pain Scale: 0-10 Numeric Is Patient Pain Free? Yes Yes Yes WC - Visit Discharge Discharge Condition Stable Stable Stable Ambulatory Status Ambulatory, Ambulatory, Ambulatory, Walker Walker Walker Transportation Private Auto Private Auto Private Auto Medication Reconcilliation completed & No Yes Yes provided to patient/care provider Clinical Summary of Care Provided Yes Yes Yes Additional Wound Wound debrided: left lateral ulcer Laterality: Left Type of Debridement: Excisional debridement Anesthesia Used: 4% Lidocaine Solution Depth: Down to and including healthy tissue and in the subcutaneous layer Percentage of wound debrided: 100 Instrument Used: 3mm curette Tissue Removed: Yellow slough, devitalized tissue Severity: Fat Layer Exposed Amount of bleeding with debridement: Mild Bleeding Controlled with: Compression and gauze Patient tolerated procedure: Patient tolerated procedure well Assessment/Plan Assessment/Plan (1) Ulcer of right lower extremity with fat layer exposed: CODE(S): L97.912 - Non-pressure chronic ulcer of unspecified part of right lower leg with fat layer exposed (2) Ulcer of left lower extremity with fat layer exposed: CODE(S): L97.922 - Non-pressure chronic ulcer of unspecified part of left lower leg with fat layer exposed (3) Venous insufficiency: CODE(S): I87.2 - Venous insufficiency (chronic) (peripheral) (4) Edema: CODE(S): R60.9 - Edema, unspecified QUALIFIERS: Edema type: unspecified Qualified Code(s): R60.9 - Edema, unspecified (5) History of CVA (cerebrovascular accident): CODE(S): Z86.73 - Personal history of transient ischemic attack (TIA), and cerebral infarction without residual deficits (6) Venous ulcer of left lower extremity with varicose veins: CODE(S): I83.029 - Varicose veins of left lower extremity with ulcer of unspecified site (7) Venous ulcer of both lower extremities with varicose veins: CODE(S): I83.019 - Varicose veins of right lower extremity with ulcer of unspecified site; I83.029 - Varicose veins of left lower extremity with ulcer of unspecified site (8) Venous ulcers of both lower extremities: CODE(S): I87.2 - Venous insufficiency (chronic) (peripheral) (9) Lymphedema: CODE(S): I89.0 - Lymphedema, not elsewhere classified PLAN: Plan Mauricio's ulcers were evaluated and debrided today at the wound healing center. He has been treated since November by his primary care physician using calcium alginate and UNNA boot therapy and he developed significant slough necessitating treatment at the wound healing center for venous stasis ulcers of his bilateral lower extremities to undergo excisional debridement. He tolerated debridement well. His ulcers are going to be dressed with promogran for moderate drainage and UNNA boot on right. This will be changed by home health on Tuesday. The left will be dressed with hydrogel and gauze and compression with KATE bandage or compression stocking. Will continue to use conventional treatment his insurance denied treatment with advanced wound healing product. He is encouraged to elevate his legs and use lymphedema pumps. We discussed importance of nutrition and increased protein intake for wound healing. He will call if there is increased drainage, erythema, fever, chills, or pain. He will return in 2 weeks for follow up.
== END 2022-05-09 23:59 | disposition home or self-care (01) ==
LOC: WC 10:00
PROVIDERS: PCP Family Medicine; Visit Provider Family Medicine
DX: L97.912 Non-pressure chronic ulcer of unspecified part of right lower leg with fat layer exposed (principal); L97.922 Non-pressure chronic ulcer of unspecified part of left lower leg with fat layer exposed; I83.029 Varicose veins of left lower extremity with ulcer of unspecified site; I83.019 Varicose veins of right lower extremity with ulcer of unspecified site; I87.2 Venous insufficiency (chronic) (peripheral); R60.9 Edema, unspecified; I89.0 Lymphedema, not elsewhere classified; Z86.73 Personal history of transient ischemic attack (TIA), and cerebral infarction without residual deficits
CPT/HCPCS: 11042; 29580; 97597

== ENCOUNTER 2022-05-28 09:00 | Outpatient (RCR) | payer MEDICAID, SELFPAY ==
[2022-05-10 00:28] VITALS: BP 114/69; PULSE 60; RESP 18; TEMP 36.6
[2022-05-21 09:08] VITALS: BP 107/69; PULSE 69; RESP 20; TEMP 36.1
--- NOTE | 2022-05-21 09:53 | PCM.WC.PN ---
History of Present Illness Date of Service: 05/21/22 Chief Complaint: venous ulcers of bilateral lower extremities History of Wound: Mauricio is a 66 yo gentleman who is here today for evaluation of ulcers to to his bilateral lower legs. He has been treated multiple times in the past at the wound healing center for similar ulcers. The left LE ulcer started after he developed increased swelling and blisters of left leg in September and the right leg started sometime at the end of October He was prescribed Doxycycline in September, October, and November. He denies improvement and is having swelling to left his calf and thigh. He has been having swelling to both lower extremities for many years and it has worsened over the last few months. He has clear yellow drainage and redness without odor or warmth. He is anti-coagulated on coumadin. He has been washing with Dial soap and witch ifrah. He had been using Collagen at times and using Calcium Alginate and covering with gauze during October. He was treated with UNNA boot therapy Since November 19, 2021 using calcium alginate over the ulcers under the UNNA boots. He was referred to the wound center for ongoing treatment as his ulcers have not improved in the last few weeks and slough has increased. His ulcers have moderate drainage. Subjective Subjective Mauricio returns today for follow up of venous ulcers of his bilateral LE. He tolerated treatment with UNNA compression to his right leg and daily dressings with KATE compression for left leg. His edema is slightly better compared to last week. He denies any fever, chills, increased drainage, odor or pain. Objective Data Objective Data Vital Signs: Vital Signs Temp Pulse Resp BP O2 Del Method 97 F L 69 20 H 107/69 Room Air 05/21/22 09:08 05/21/22 09:08 05/21/22 09:08 05/21/22 09:08 05/21/22 09:08 Oxygen Delivery Method Room Air Physical Exam Const alert, oriented x3 and no apparent distress General Appearance: cooperative and comfortable HEENT normocephalic and head/scalp atraumatic Resp normal respiratory effort Effort and Inspection: able to speak in complete sentences Cardio regular rate and regular rhythm Skin Wounds: wounds noted Wound Narrative: as in clinical panel Psych mental status grossly normal, thought process normal, cooperative and affect normal Debridement Note Debridement Note Wound debrided: left lateral LE Laterality: Left No debridement was completed: No debridement was completed today (ulcer is healed) Post-Debridement Measurements and Additional Note: Post-Debridement Measurements/Treatment DEBBIE - Nurse 1 - General Ulcer Assessment Start: 05/21/22 09:08 Freq: Status: Active Protocol: ONDINA Activity Type Activity Date Activity User E-sign Co-sign Detail Recorded Client Recorded Date Recorded By Document 05/21/22 09:08 WA [id number] 05/21/22 09:17 WA 05/21/22 09:08 - Today's Visit Information Type of service Follow-up Visit (Physician/MICROECONOMICS PROFESSOR ) Arrival Mode Ambulatory, Walker Accompanied by self Patient Identification Verified (Name & Yes ) Safety Precautions Fall Prevention Vital Signs Temperature (97.8 F-99.1 F) 97 F L Temperature Source Temporal Pulse Rate (60-100) 69 Pulse Location Monitor Respiratory Rate (12-18) 20 H Respiratory rate source Observation Oxygen Delivery Method Room Air Blood Pressure (90/60-120/80) 107/69 Blood Pressure Mean (mm Hg) 81 Source Monitor Position Sitting Blood Pressure Location Right Arm History Since Last Visit- (Skip if this is Patient's initial visit) Has dressing in place as prescribed Yes Has compression in place as prescribed Yes Has offloadiing in place as prescribed Yes Experienced any changes in pain level or Yes management Left Footwear Regular Shoe Right Footwear Regular Shoe Pain Scale: 0-10 Numeric Is Patient Pain Free? Yes DEBBIE - Nurse 1 - General Ulcer Measurement Start: 05/21/22 09:08 Freq: Status: Active Protocol: Activity Type Activity Date Activity User E-sign Co-sign Detail Recorded Client Recorded Date Recorded By Document 05/21/22 09:08 WA [id number] 05/21/22 09:17 WA 05/21/22 09:08 Wound Center Nurse 1 13. LLE lateral -Current Size (cm) - Length 0.5 -Current Size (cm) - Width 0.5 -Current Size (cm) - Depth 0.5 -Total Square Cm 0.25 -Epithelialization Large 67-100% -Exudate Amt None Present -Wound Margin Flat & Intact -Granulation Amt Large (67-100%) -Granulation Quality Pale,[place] -Texture (Marie-wound Skin Appearance) Assessed, Localized Edema -Moisture (Marie-wound Skin Appearance) Assessed -Color (Marie-wound Skin Appearance) Assessed, Hemosiderin Staining -Temperature (Marie-wound Skin No Abnormality Appearance) (Pt Warm) -Tenderness on Palpation (Marie-wound No Skin Appearance) -Ulcer Cleansing Soap and Water -Foul Odor after Cleansing No 14. RLE medial -Current Size (cm) - Length 1.9 -Current Size (cm) - Width 1.5 -Current Size (cm) - Depth 0.1 -Total Square Cm 2.85 -Exudate Amt Small -Exudate Type Serosanguineous -Wound Margin Flat & Intact -Granulation Amt Large (67-100%) -Granulation Quality Pale,[place] -Necrosis Amt None Present (0 %) -Texture (Marie-wound Skin Appearance) Assessed, Localized Edema -Moisture (Marie-wound Skin Appearance) Assessed -Color (Marie-wound Skin Appearance) Assessed, Hemosiderin Staining -Temperature (Marie-wound Skin No Abnormality Appearance) (Pt Warm) -Tenderness on Palpation (Marie-wound No Skin Appearance) -Ulcer Cleansing Soap and Water -Foul Odor after Cleansing No -Anesthetic Used 4% Lidocaine Solution Right Calf (cm) 44 Right Ankle (cm) 27 Left Calf (cm) 44 Left Ankle (cm) 31.5 WC - Nurse 2 - General Ulcer CM Notes Start: 05/21/22 09:08 Freq: Status: Active Protocol: Activity Type Activity Date Activity User E-sign Co-sign Detail Recorded Client Recorded Date Recorded By Document 05/21/22 09:40 PL [id number] 05/21/22 09:44 PL 05/21/22 09:40 Wound Center Nurse 2 13. LLE lateral -Procedure Performed No -Wound/Ulcer Outcome Healed- Epithelialized 14. RLE medial -Time 09:20 -Correct Patient Yes -Correct Side, Site, Position Yes -Correct Procedure Yes -Procedure Performed Yes -Type of Procedure Debridement -Clinical Debridement Subcutaneous -Tissue Removed Subcutaneous -Post Debridement (cm) - Length 0.5 -Post Debridement (cm) - Width 0.3 -Post Debridement (cm) - Depth 0.1 -Total Square (Post) (cm) 0.15 -Area of Debridement (cm) - Length 0.5 -Area of Debridement (cm) - Width 0.3 -Total Square (Area) (cm) 0.15 -Tunneling No -Undermining/Tunneling No -Circular Undermining No -Wound/Ulcer Outcome Not Healed -Ulcer Cleansing Rinsed/ Irrigated with Saline -Foul Odor after Cleansing No -Bioengineered Tissue No -Bleeding Controlled with Pressure -Treatment Response Procedure Tolerated Well -Debridement - Subq, 1st 20sq cm Yes Pain Scale: 0-10 Numeric Is Patient Pain Free? Yes - Nurse 3 - General Ulcer D/C NN Start: 05/21/22 09:08 Freq: Status: Active Protocol: Activity Type Activity Date Activity User E-sign Co-sign Detail Recorded Client Recorded Date Recorded By Document 05/21/22 09:35 WA [id number] 05/21/22 09:40 WA 05/21/22 09:35 Wound Care Nurse 3 13. LLE lateral -Ulcer Cleansing Rinsed/ Irrigated with Saline -Foul Odor after Cleansing No -Primary Dressing Applied NonAdherent Contact Layer -Primary Dressing Covered/Secured with Dry Gauze & Roll Gauze, Secured with Tape 14. RLE medial -Ulcer Cleansing Rinsed/ Irrigated with Saline -Foul Odor after Cleansing No -Primary Dressing Applied Promogran,Other -Other Dressing unna boot; hydrogel; abd -Primary Dressing Covered/Secured with Dry Gauze -Promogran 1 Left -Compression Wrap Kate Wrap Right -Multi-Layered Wrap Application Unna Boot - Right ($) Treatment Response Procedure Tolerated Well Pain Scale: 0-10 Numeric Is Patient Pain Free? Yes - Visit Discharge Discharge Condition Stable Ambulatory Status Ambulatory Transportation Private Auto Additional Wound Wound debrided: right medial LE Laterality: Right Type of Debridement: Excisional debridement Anesthesia Used: 4% Lidocaine Solution and 5% Lidocaine Gel Depth: Down to and including healthy tissue and in the subcutaneous layer Percentage of wound debrided: 100 Instrument Used: 3mm curette Tissue Removed: Yellow slough, devitalized tissue Severity: Fat Layer Exposed Amount of bleeding with debridement: Mild Bleeding Controlled with: Compression and gauze Patient tolerated procedure: Patient tolerated procedure well Assessment/Plan Assessment/Plan (1) Ulcer of right lower extremity with fat layer exposed: CODE(S): L97.912 - Non-pressure chronic ulcer of unspecified part of right lower leg with fat layer exposed (2) Ulcer of left lower extremity with fat layer exposed: CODE(S): L97.922 - Non-pressure chronic ulcer of unspecified part of left lower leg with fat layer exposed (3) Venous insufficiency: CODE(S): I87.2 - Venous insufficiency (chronic) (peripheral) (4) Edema: CODE(S): R60.9 - Edema, unspecified QUALIFIERS: Edema type: unspecified Qualified Code(s): R60.9 - Edema, unspecified (5) History of CVA (cerebrovascular accident): CODE(S): Z86.73 - Personal history of transient ischemic attack (TIA), and cerebral infarction without residual deficits (6) Venous ulcer of left lower extremity with varicose veins: CODE(S): I83.029 - Varicose veins of left lower extremity with ulcer of unspecified site (7) Venous ulcer of both lower extremities with varicose veins: CODE(S): I83.019 - Varicose veins of right lower extremity with ulcer of unspecified site; I83.029 - Varicose veins of left lower extremity with ulcer of unspecified site (8) Venous ulcers of both lower extremities: CODE(S): I87.2 - Venous insufficiency (chronic) (peripheral) (9) Lymphedema: CODE(S): I89.0 - Lymphedema, not elsewhere classified PLAN: Plan Mauricio's ulcers were evaluated and debrided today at the wound healing center. He has been treated since November by his primary care physician using calcium alginate and UNNA boot therapy and he developed significant slough necessitating treatment at the wound healing center for venous stasis ulcers of his bilateral lower extremities to undergo excisional debridement. He tolerated debridement well. His right medial LE ulcer will be dressed with promogran for moderate drainage and UNNA boot on right. This will be changed by home health on Tuesday. The left is healed and will continue compression with KATE bandage or compression stocking. Will continue to use conventional treatment his insurance denied treatment with advanced wound healing product. He is encouraged to elevate his legs and use lymphedema pumps. We discussed importance of nutrition and increased protein intake for wound healing. He will call if there is increased drainage, erythema, fever, chills, or pain. He will return in 1 week for follow up.
[2022-05-28 09:09] VITALS: BP 125/71; PULSE 74; TEMP 36.1
--- NOTE | 2022-05-28 10:08 | PCM.WC.PN ---
History of Present Illness Date of Service: 05/28/22 Chief Complaint: venous ulcers of bilateral lower extremities History of Wound: Mauricio is a 66 yo gentleman who is here today for evaluation of ulcers to to his bilateral lower legs. He has been treated multiple times in the past at the wound healing center for similar ulcers. The left LE ulcer started after he developed increased swelling and blisters of left leg in September and the right leg started sometime at the end of October He was prescribed Doxycycline in September, October, and November. He denies improvement and is having swelling to left his calf and thigh. He has been having swelling to both lower extremities for many years and it has worsened over the last few months. He has clear yellow drainage and redness without odor or warmth. He is anti-coagulated on coumadin. He has been washing with Dial soap and witch ifrah. He had been using Collagen at times and using Calcium Alginate and covering with gauze during October. He was treated with UNNA boot therapy Since November 19, 2021 using calcium alginate over the ulcers under the UNNA boots. He was referred to the wound center for ongoing treatment as his ulcers have not improved in the last few weeks and slough has increased. His ulcers have moderate drainage. Subjective Subjective Mauricio returns today for follow up of venous ulcers of his bilateral LE. He tolerated treatment with UNNA compression to his right leg and is healed today. The skin is very fragile. His edema is slightly better compared to last week. He denies any fever, chills, increased drainage, odor or pain. Objective Data Objective Data Vital Signs: Vital Signs Temp Pulse Resp BP O2 Del Method 97.0 F L 74 20 H 125/71 H Room Air 05/28/22 09:09 05/28/22 09:09 05/21/22 09:08 05/28/22 09:09 05/21/22 09:08 Oxygen Delivery Method Room Air Physical Exam Const alert, oriented x3 and no apparent distress General Appearance: cooperative and comfortable HEENT normocephalic and head/scalp atraumatic Resp normal respiratory effort Effort and Inspection: able to speak in complete sentences Cardio regular rate and regular rhythm Skin Wounds: wounds noted Wound Narrative: as in clinical panel Psych mental status grossly normal, thought process normal, cooperative and affect normal Debridement Note Debridement Note Post-Debridement Measurements and Additional Note: Post-Debridement Measurements/Treatment WC - Nurse 1 - General Ulcer Assessment Start: 05/21/22 09:08 Freq: Status: Active Protocol: ONDINA Activity Type Activity Date Activity User E-sign Co-sign Detail Recorded Client Recorded Date Recorded By Document 05/21/22 09:08 AK [id number] 05/21/22 09:17 MT Document 05/28/22 09:09 KR [id number] 05/28/22 09:12 KR 05/21/22 05/28/22 09:08 09:09 WC - Today's Visit Information Type of service Follow-up Visit Follow-up Visit (Physician/DIE CASTING MACHINE OPERATOR (Physician/DIE CASTING MACHINE OPERATOR ) ) Arrival Mode Ambulatory, Walker Walker Accompanied by self Patient Identification Verified (Name & Yes Yes ) Safety Precautions Fall Prevention Vital Signs Temperature (97.8 F-99.1 F) 97 F L 97.0 F L Temperature Source Temporal Temporal Pulse Rate (60-100) 69 74 Pulse Location Monitor Monitor Respiratory Rate (12-18) 20 H Respiratory rate source Observation Oxygen Delivery Method Room Air Blood Pressure (90/60-120/80) 107/69 125/71 H Blood Pressure Mean (mm Hg) 81 89 Source Monitor Monitor Position Sitting Semi-Fowlers Blood Pressure Location Right Arm Right Arm History Since Last Visit- (Skip if this is Patient's initial visit) Have you changed medications since your No last visit? Any new allergies or adverse reactions No Had a fall/change in ADL's that may No increase risk of falls Signs or symptoms of abuse and/or No neglect since last visit Have you been in the hospital since your No last visit? Has dressing in place as prescribed Yes Yes Has compression in place as prescribed Yes N/A Has offloadiing in place as prescribed Yes N/A Experienced any changes in pain level or Yes No management Left Footwear Regular Shoe Regular Shoe Right Footwear Regular Shoe Regular Shoe Pain Scale: 0-10 Numeric Is Patient Pain Free? Yes Yes - Nurse 1 - General Ulcer Measurement Start: 05/21/22 09:08 Freq: Status: Active Protocol: Activity Type Activity Date Activity User E-sign Co-sign Detail Recorded Client Recorded Date Recorded By Document 05/21/22 09:08 AK [id number] 05/21/22 09:17 MT Document 05/28/22 09:09 KR [id number] 05/28/22 09:12 KR 05/21/22 05/28/22 09:08 09:09 Wound Center Nurse 1 14. RLE medial -Current Size (cm) - Length 1.9 0.1 -Current Size (cm) - Width 1.5 0.1 -Current Size (cm) - Depth 0.1 0.1 -Total Square Cm 2.85 0.01 -Exudate Amt Small None Present -Exudate Type Serosanguineous -Wound Margin Flat & Intact Distinct, Outline Attached -Granulation Amt Large (67-100%) None Present (0 %) -Granulation Quality Pale,[place] -Necrosis Amt None Present (0 None Present (0 %) %) -Texture (Marie-wound Skin Appearance) Assessed, Assessed, Localized Edema Scarring -Moisture (Marie-wound Skin Appearance) Assessed Assessed,Dry/ Scaly -Color (Marie-wound Skin Appearance) Assessed, No Abnormality, Hemosiderin Assessed Staining -Temperature (Marie-wound Skin No Abnormality No Abnormality Appearance) (Pt Warm) (Pt Warm) -Tenderness on Palpation (Marie-wound No No Skin Appearance) -Ulcer Cleansing Soap and Water Soap and Water -Foul Odor after Cleansing No No -Anesthetic Used 4% Lidocaine 5% Lidocaine Solution Gel 13. LLE lateral -Current Size (cm) - Length 0.5 -Current Size (cm) - Width 0.5 -Current Size (cm) - Depth 0.5 -Total Square Cm 0.25 -Epithelialization Large 67-100% -Exudate Amt None Present -Wound Margin Flat & Intact -Granulation Amt Large (67-100%) -Granulation Quality Pale,[place] -Texture (Marie-wound Skin Appearance) Assessed, Localized Edema -Moisture (Marie-wound Skin Appearance) Assessed -Color (Marie-wound Skin Appearance) Assessed, Hemosiderin Staining -Temperature (Marie-wound Skin No Abnormality Appearance) (Pt Warm) -Tenderness on Palpation (Marie-wound No Skin Appearance) -Ulcer Cleansing Soap and Water -Foul Odor after Cleansing No Right Calf (cm) 44 Right Ankle (cm) 27 Left Calf (cm) 44 Left Ankle (cm) 31.5 WC - Nurse 2 - General Ulcer CM Notes Start: 05/21/22 09:08 Freq: Status: Active Protocol: Activity Type Activity Date Activity User E-sign Co-sign Detail Recorded Client Recorded Date Recorded By Document 05/21/22 09:40 PL [id number] 05/21/22 09:44 PL Document 05/28/22 09:20 MW [id number] 05/28/22 09:30 MW 05/21/22 05/28/22 09:40 09:20 Wound Center Nurse 2 14. RLE medial -Time 09:20 09:20 -Correct Patient Yes Yes -Correct Side, Site, Position Yes Yes -Correct Procedure Yes Yes -Procedure Performed Yes No -Type of Procedure Debridement -Clinical Debridement Subcutaneous -Tissue Removed Subcutaneous -Post Debridement (cm) - Length 0.5 0 -Post Debridement (cm) - Width 0.3 0 -Post Debridement (cm) - Depth 0.1 0 -Total Square (Post) (cm) 0.15 0 -Area of Debridement (cm) - Length 0.5 -Area of Debridement (cm) - Width 0.3 -Total Square (Area) (cm) 0.15 -Tunneling No -Undermining/Tunneling No -Circular Undermining No -Wound/Ulcer Outcome Not Healed Healed- Epithelialized -Ulcer Cleansing Rinsed/ Irrigated with Saline -Foul Odor after Cleansing No -Bioengineered Tissue No -Bleeding Controlled with Pressure -Treatment Response Procedure Tolerated Well -Debridement - Subq, 1st 20sq cm Yes 13. LLE lateral -Procedure Performed No -Wound/Ulcer Outcome Healed- Epithelialized Pain Scale: 0-10 Numeric Is Patient Pain Free? Yes Yes WC - Nurse 3 - General Ulcer D/C NN Start: 05/21/22 09:08 Freq: Status: Active Protocol: Activity Type Activity Date Activity User E-sign Co-sign Detail Recorded Client Recorded Date Recorded By Document 05/21/22 09:35 MT [id number] 05/21/22 09:40 MT 05/21/22 09:35 Wound Care Nurse 3 14. RLE medial -Ulcer Cleansing Rinsed/ Irrigated with Saline -Foul Odor after Cleansing No -Primary Dressing Applied Promogran,Other -Other Dressing unna boot; hydrogel; abd -Primary Dressing Covered/Secured with Dry Gauze -Promogran 1 13. LLE lateral -Ulcer Cleansing Rinsed/ Irrigated with Saline -Foul Odor after Cleansing No -Primary Dressing Applied NonAdherent Contact Layer -Primary Dressing Covered/Secured with Dry Gauze & Roll Gauze, Secured with Tape Left -Compression Wrap Marcio Wrap Right -Multi-Layered Wrap Application Unna Boot - Right ($) Treatment Response Procedure Tolerated Well Pain Scale: 0-10 Numeric Is Patient Pain Free? Yes WC - Visit Discharge Discharge Condition Stable Ambulatory Status Ambulatory Transportation Private Auto Additional Wound Wound debrided: right medial LE Laterality: Right Type of Debridement: Selective debridement Anesthesia Used: 4% Lidocaine Solution Depth: Down to and including healthy tissue and in the subcutaneous layer Percentage of wound debrided: 100 Instrument Used: 3mm curette Tissue Removed: Yellow slough, devitalized tissue Severity: Fat Layer Exposed Amount of bleeding with debridement: Mild Bleeding Controlled with: Compression and gauze Patient tolerated procedure: Patient tolerated procedure well Operative Diagnosis: He is healed Assessment/Plan Assessment/Plan (1) Ulcer of right lower extremity with fat layer exposed: CODE(S): L97.912 - Non-pressure chronic ulcer of unspecified part of right lower leg with fat layer exposed (2) Ulcer of left lower extremity with fat layer exposed: CODE(S): L97.922 - Non-pressure chronic ulcer of unspecified part of left lower leg with fat layer exposed (3) Venous insufficiency: CODE(S): I87.2 - Venous insufficiency (chronic) (peripheral) (4) Edema: CODE(S): R60.9 - Edema, unspecified QUALIFIERS: Edema type: unspecified Qualified Code(s): R60.9 - Edema, unspecified (5) History of CVA (cerebrovascular accident): CODE(S): Z86.73 - Personal history of transient ischemic attack (TIA), and cerebral infarction without residual deficits (6) Venous ulcer of left lower extremity with varicose veins: CODE(S): I83.029 - Varicose veins of left lower extremity with ulcer of unspecified site (7) Venous ulcer of both lower extremities with varicose veins: CODE(S): I83.019 - Varicose veins of right lower extremity with ulcer of unspecified site; I83.029 - Varicose veins of left lower extremity with ulcer of unspecified site (8) Venous ulcers of both lower extremities: CODE(S): I87.2 - Venous insufficiency (chronic) (peripheral) (9) Lymphedema: CODE(S): I89.0 - Lymphedema, not elsewhere classified PLAN: Plan Mauricio's ulcers were evaluated and he is healed! His right medial LE ulcer will be dressed with promogran every other day for the next week. The left is healed and will continue compression with MARCIO bandage or compression stocking or tubigrip. He is encouraged to elevate his legs and use lymphedema pumps. We discussed importance of nutrition and increased protein intake for wound healing. He will call if there is increased drainage, erythema, fever, chills, or pain. He will be discharged and will call if he has any ulcers develop in the future.
== END 2022-05-28 13:05 | disposition home or self-care (01) ==
LOC: WC 09:00
PROVIDERS: PCP Family Medicine; Visit Provider Family Medicine
DX: L97.912 Non-pressure chronic ulcer of unspecified part of right lower leg with fat layer exposed (principal); L97.922 Non-pressure chronic ulcer of unspecified part of left lower leg with fat layer exposed; I89.0 Lymphedema, not elsewhere classified; I83.93 Asymptomatic varicose veins of bilateral lower extremities; I87.2 Venous insufficiency (chronic) (peripheral); R60.9 Edema, unspecified; Z86.73 Personal history of transient ischemic attack (TIA), and cerebral infarction without residual deficits
CPT/HCPCS: 11042; 29580; 99213; G0463

== ENCOUNTER → 2022-06-23 | Outpatient (CLI) | payer MEDICARE, OTHER, SELFPAY ==
[2022-06-23 09:27] LABS: Erythrocyte Sedimentation Rate 3 mm/hr (0-20)
[2022-06-23 09:29] LABS: International Normalized Ratio 2.2; Prothrombin Time (Protime)PT. 24.1 SECONDS (11.7-14.9)
[2022-06-23 09:48] LABS: Rheumatoid Factor < 10.0 IU/mL (<15)
[2022-06-24 16:10] LABS: ANTINUCLEAR ANTIBODIES DIRECT Positive (Negative)
[2022-06-25 11:10] LABS: CCP IgG Antibodies 3 units (0-19)
[2022-06-30 09:08] LABS: Anti-Centromere B Ab <0.2 AI (0.0-0.9); Anti-Chromatin <0.2 AI (0.0-0.9); Anti-Jo <0.2 AI (0.0-0.9); Anti-Scleroderma-70 AB <0.2 AI (0.0-0.9); RNP Ab <0.2 AI (0.0-0.9); SJOGREN'S Anti-SS-A test > 8.0 AI (0.0-0.9); SJOGREN'S Anti-SS-B test < 0.2 AI (0.0-0.9); Smith Ab <0.2 AI (0.0-0.9)
[2022-06-30 11:32] LABS: Anti-dsDNA Ab 5 IU/mL (0-9)
== END | disposition home or self-care (01) ==
PROVIDERS: PCP Family Medicine; Visit Provider Family Medicine
DX: M25.50 Pain in unspecified joint (principal); L97.911 Non-pressure chronic ulcer of unspecified part of right lower leg limited to breakdown of skin; I87.2 Venous insufficiency (chronic) (peripheral)
CPT/HCPCS: 36415; 85610; 85652; 86038; 86140; 86200; 86225; 86235; 86431

== ENCOUNTER 2022-07-07 07:04 | Day surgery (SDC) | payer MEDICARE, OTHER, SELFPAY ==
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
[2022-07-07 07:41] VITALS: BP 117/78; PULSE 85; RESP 16; TEMP 36.9; O2SAT 98; BMI 40.1
[2022-07-07] MEDS: Lactated Ringers 1,000 ML 15 ML IV (07:54)
[2022-07-07 08:50] VITALS: BP 113/87; BP 117/78; PULSE 77; RESP 16; TEMP 37.2; O2SAT 98
[2022-07-07 08:55] VITALS: BP 117/78; BP 121/84; PULSE 79; RESP 18; O2SAT 99
--- NOTE | 2022-07-07 08:55 | OP.COLON_ITS ---
Patient Name: Perry Love Procedure Date: 07/07/2022 8:21 AM Date of : 1955 Age: 67 Procedure: Colonoscopy Indications: Surveillance: Personal history of adenomatous polyps on last colonoscopy 3 years ago, Family history of colon cancer in a first-degree relative Providers: Heydi Kim MD Medicines: Monitored Anesthesia Care Patient Profile: This is a 67 year old male. Last Colonoscopy: 2018. Complications: No immediate complications. Procedure: Pre-Anesthesia Assessment: - Prior to the procedure, a History and Physical was performed, and patient medications and allergies were reviewed. The patient's tolerance of previous anesthesia was also reviewed. The risks and benefits of the procedure and the sedation options and risks were discussed with the patient. All questions were answered, and informed consent was obtained. Prior Anticoagulants: The patient has taken Coumadin (warfarin), last dose was 5 days prior to procedure. ASA Grade Assessment: Per anesthesia. After reviewing the risks and benefits, the patient was deemed in satisfactory condition to undergo the procedure. After I obtained informed consent, the scope was passed under direct vision. Throughout the procedure, the patient's blood pressure, pulse, and oxygen saturations were monitored continuously. The pediatric colonoscope was introduced through the anus and advanced to the cecum, identified by the appendiceal orifice, ileocecal valve and palpation. The colonoscopy was performed without difficulty. The patient tolerated the procedure well. The quality of the bowel preparation was good. Scope In: 8:28:50 AM Scope Withdrawal Time 0 hours 9 minutes 57 seconds Scope Out: 8:46:01 AM Total Procedure Duration Time 0 hours 17 minutes 11 seconds Findings: The perianal and digital rectal examinations were normal. The entire examined colon appeared normal on direct and retroflexion views. Impression: - The entire examined colon is normal on direct and retroflexion views. - No specimens collected. Recommendation: - Discharge patient to home. - Resume previous diet. - Continue present medications. - Resume Coumadin (warfarin) today at prior dose. - Repeat colonoscopy in 5 years for screening purposes. Procedure Code(s): --- Professional --- G0105, PT, Colorectal cancer screening; colonoscopy on individual at high risk Diagnosis Code(s): --- Professional --- Z86.010, Personal history of colonic polyps Z80.0, Family history of malignant neoplasm of digestive organs K57.30, Diverticulosis of large intestine without perforation or abscess without bleeding CPT copyright 2017 [employer]. All rights reserved. The codes documented in this report are preliminary and upon environmental sampler review may be revised to meet current compliance requirements. MD Heydi Melendez MD 07/07/2022 8:54:47 AM This report has been signed electronically. Number of Addenda: 0 Note Initiated On: 07/07/2022 8:21 AM
--- NOTE | 2022-07-07 08:56 | OP.CCLET_ITS ---
07/07/2022 Patricia Garcia [address] [place] [address] Re : Colonoscopy procedure for Perry Love Dear Dr. Garcia This procedure was performed on Thursday, July 07, 2022. My impressions and recommendations are as follows: Impressions : - The entire examined colon is normal on direct and retroflexion views. - No specimens collected. Recommendations : - Discharge patient to home. - Resume previous diet. - Continue present medications. - Resume Coumadin (warfarin) today at prior dose. - Repeat colonoscopy in 5 years for screening purposes. My findings are described in the full procedure note, which is enclosed. If I can be of further assistance, please feel free to contact me at Doctor phone number(s): , Work: . Sincerely, MD Heydi Melendez MD 07/07/2022 8:54:47 AM This report has been signed electronically.
[2022-07-07 09:00] VITALS: BP 112/79; BP 117/78; PULSE 76; RESP 16; O2SAT 98
[2022-07-07 09:06] VITALS: BP 117/78; BP 125/95; PULSE 79; RESP 16; TEMP 37.8; O2SAT 98
[2022-07-07 09:40] VITALS: BP 117/78
== END 2022-07-07 09:45 | disposition home or self-care (01) ==
LOC: EN 07:04 → AC 07:05
PROVIDERS: PCP Family Medicine; Referring Provider Surgery; Visit Provider Surgery
PROC: 0DJD8ZZ Inspection of Lower Intestinal Tract, Via Natural or Artificial Opening Endoscopic (ICD-10-PCS; CPT 45378; principal; 2022-07-07 08:10)
DX: Z12.11 Encounter for screening for malignant neoplasm of colon (principal); I10 Essential (primary) hypertension; Z86.010 Personal history of colon polyps; Z79.01 Long term (current) use of anticoagulants; Z79.2 Long term (current) use of antibiotics; Z80.0 Family history of malignant neoplasm of digestive organs; Z86.73 Personal history of transient ischemic attack (TIA), and cerebral infarction without residual deficits; K57.30 Diverticulosis of large intestine without perforation or abscess without bleeding
CPT/HCPCS: G0105; J7120

== ENCOUNTER → 2022-07-16 | Outpatient (CLI) | payer MEDICARE, OTHER, SELFPAY ==
[2022-07-16 08:45] LABS: INR Fingerstick 1.3; Prothrombin Time Fingerstick 16.5 SEC (11.7-14.9)
== END | disposition home or self-care (01) ==
LOC: LAB 04:31
PROVIDERS: PCP Family Medicine; Visit Provider Family Medicine
DX: Z79.01 Long term (current) use of anticoagulants (principal); Z86.718 Personal history of other venous thrombosis and embolism
CPT/HCPCS: 36416; 85610

== ENCOUNTER → 2022-07-23 | Outpatient (CLI) | payer MEDICARE, OTHER, SELFPAY ==
[2022-07-23 08:25] LABS: INR Fingerstick 2.2; Prothrombin Time Fingerstick 25.3 SEC (11.7-14.9)
== END | disposition home or self-care (01) ==
LOC: LAB 04:25
PROVIDERS: PCP Family Medicine; Visit Provider Family Medicine
DX: Z79.01 Long term (current) use of anticoagulants (principal); Z86.718 Personal history of other venous thrombosis and embolism
CPT/HCPCS: 36416; 85610

== ENCOUNTER → 2022-08-23 | Outpatient (CLI) | payer MEDICARE, OTHER, SELFPAY ==
[2022-08-23 07:51] LABS: INR Fingerstick 3.3
== END | disposition home or self-care (01) ==
LOC: LAB 03:40
PROVIDERS: PCP Family Medicine; Visit Provider Family Medicine
DX: Z79.01 Long term (current) use of anticoagulants (principal); Z86.718 Personal history of other venous thrombosis and embolism
CPT/HCPCS: 36416; 85610

== ENCOUNTER → 2022-09-08 | Outpatient (CLI) | payer MEDICARE, OTHER, SELFPAY ==
[2022-09-08 07:40] LABS: INR Fingerstick 2.2; Prothrombin Time Fingerstick 25.8 SEC (11.7-14.9)
== END | disposition home or self-care (01) ==
LOC: LAB 04:16
PROVIDERS: PCP Family Medicine; Visit Provider Family Medicine
DX: Z79.01 Long term (current) use of anticoagulants (principal); Z86.718 Personal history of other venous thrombosis and embolism
CPT/HCPCS: 36416; 85610

== ENCOUNTER → 2022-10-13 | Outpatient (CLI) | payer MEDICARE, OTHER, SELFPAY ==
[2022-10-13 07:50] LABS: INR Fingerstick 2.7
== END | disposition home or self-care (01) ==
LOC: LAB 04:24
PROVIDERS: PCP Family Medicine; Visit Provider Family Medicine
DX: Z79.01 Long term (current) use of anticoagulants (principal); Z86.718 Personal history of other venous thrombosis and embolism
CPT/HCPCS: 36416; 85610

== ENCOUNTER → 2022-10-20 | Outpatient (CLI) | payer MEDICARE, OTHER, SELFPAY | END | disposition home or self-care (01) | LOC: LABSPEC 11:09 | PROVIDERS: PCP Family Medicine; Visit Provider Family Medicine | DX: S81.802A Unspecified open wound, left lower leg, initial encounter (principal) | CPT/HCPCS: 87070; 87075; 87077; 87186; 87205 ==

== ENCOUNTER → 2022-11-12 | Outpatient (CLI) | payer MEDICARE, OTHER, SELFPAY ==
[2022-11-12 08:30] LABS: INR Fingerstick 2.4; Prothrombin Time Fingerstick 27.8 SEC (11.7-14.9)
== END | disposition home or self-care (01) ==
LOC: LAB 04:59
PROVIDERS: PCP Family Medicine; Visit Provider Family Medicine
DX: Z86.718 Personal history of other venous thrombosis and embolism (principal); Z79.01 Long term (current) use of anticoagulants
CPT/HCPCS: 36416; 85610

== ENCOUNTER 2022-11-26 09:30 | Outpatient (RCR) | payer MEDICARE, OTHER, SELFPAY ==
[2022-11-12 09:34] VITALS: BP 130/71; PULSE 87; RESP 18; TEMP 35.8
--- NOTE | 2022-11-12 10:56 | VDLE_ITS ---
Reason For Study: LEG SWELLING RIGHT LEFT CFV is compressible, spontaneous, phasic, GSV is normal. competent and demonstrates normal CFV is compressible, spontaneous, phasic, augmentation. competent, and demonstrates normal Procedure augmentation. This is a venous duplex using B-mode, color FV is compressible, spontaneous, phasic, flow and spectral Doppler. competent and demonstrates normal Exam performed in department. augmentation. The exam was diagnostic. POP V is compressible, spontaneous, phasic, The study was technically difficult. competent and demonstrates normal A preliminary report was called and/or faxed augmentation. to Dr. Garcia / [facility]. T/P Trunk is compressible. PTV is compressible. LT PerV is compressible. Enlarged Lymph Node noted in Lt Groin measuring approximately 4.35cm x 1.10cm. VL/Venous Duplex US, Unilateral Interpretation Summary There is no evidence of left lower extremity deep vein thrombosis. Left great s aphenous vein appears patent and compressible segmentally. Left groin 4.35 x 1.10 cm enlarged lymph n ode. Normal flow patterns right common femoral vein This examination was noted to be technically difficult Ordering Physician: Patricia Garcia Referring Physician: Patricia Garcia Performed By: Gary Soto RVT
--- NOTE | 2022-11-12 14:03 | HP.PCM_ITS ---
History of Present Illness Date of Service: 11/12/22 Chief Complaint: venous ulcers of bilateral lower extremities History of Wound: Mauricio is a 67 yo gentleman who is here today for evaluation of ulcers to to his bilateral lower legs. He has been treated multiple times in the past at the wound healing center for similar ulcers. The left LE ulcer started after he developed increased swelling and blisters of left leg in October and the right leg started sometime at the end of October He was seen at PCP's office a culture was taken and it was resistant to several antibiotics. He was treated initially with Levaquin but had myalgias and then was treated with doxycycline which he finished 2 days ago. He denies improvement and is having swelling to left his calf and thigh. He has been having swelling to both lower extremities for many years and it has worsened over the last few months. He has not been compliabt with compression. He has had increased pain especially in the left leg. He has clear yellow drainage and redness without odor or warmth. He is anti- coagulated on coumadin. He has been washing with Dial soap and witch ifrah. He had been using Collagen at times and using Calcium Alginate and covering with ABD pads during October. He was treated with UNNA boot therapy on Tuesday using calcium alginate over the ulcers under the UNNA boots. He was referred to the wound center for ongoing treatment. His ulcers have moderate drainage. [facility] Medical History Alcohol use History of edema History of pain when walking History of stress test Hypertension Lupus Non-smoker Pulmonary embolism Seizures Stroke/cerebrovascular accident Uses wheelchair Wears glasses Home Medications lisinopril 5 mg tablet 10 mg PO BID blood pressure 08/27/15 [History Last Taken 02/14/19 07:30] omega-3 fatty acids 500 mg capsule (Fish Oil) 1,000 mg PO DAILY supplement 08/27/15 [History Last Taken 07/01/22] Clonidine Hcl 1 tab PO BID Blood pressure\ 02/07/19 [History Last Taken 02/14/19 07:30] baclofen 10 mg tablet 10 mg PO .QID PRN Muscle Spasm 04/14/22 [History Last Taken Unknown] methadone 10 mg tablet 10 mg PO Q12H 04/14/22 [History Last Taken Unknown] niacin 50 mg tablet 25 mg PO DAILY 04/14/22 [History Last Taken Unknown] phenytoin sodium extended 100 mg capsule (Dilantin Extended) 200 mg PO DAILY 04/14/22 [History Last Taken 07/07/22 06:15] pregabalin 75 mg capsule (Lyrica) 75 mg PO TID 04/14/22 [History Last Taken Unknown] turmeric root extract 500 mg capsule 100 mg PO BID supplement 04/14/22 [History Last Taken 07/02/22] warfarin 4 mg tablet (Jantoven) 5 mg PO MOWEFR Blood thinner 04/14/22 [History Last Taken 07/01/22] warfarin 5 mg tablet (Jantoven) 4 mg PO SUTUTHSA blood thinner 04/14/22 [History Last Taken 07/01/22] coenzyme Q10 100 mg capsule (CoQ-10) 100 mg PO QODAY 07/02/22 [History Last Taken Unknown] ergocalciferol (vitamin D2) 1,250 mcg (50,000 unit) capsule (Vitamin D2) 1,250 mcg PO WE 07/02/22 [History Last Taken Unknown] phenytoin sodium extended 100 mg capsule (Dilantin Extended) 100 mg PO QHS 07/02/22 [History Last Taken Unknown] furosemide 20 mg tablet (Lasix) 20 mg PO LUNCH 07/05/22 [History Last Taken Unknown] furosemide 40 mg tablet (Lasix) 40 mg PO DAILY 07/05/22 [History Last Taken Unknown] Allergy/AdvReac Type Severity Reaction Status Date / Time duloxetine [From Cymbalta] Allergy Rash Verified 07/07/22 07:38 sulfamethoxazole Allergy Rash Verified 07/07/22 07:38 [From Bactrim] trimethoprim [From Bactrim] Allergy Rash Verified 07/07/22 07:38 ciprofloxacin [From Cipro] AdvReac PAIN IN Verified 07/07/22 07:38 FEET ciprofloxacin HCl AdvReac Rash Verified 07/07/22 07:38 [From Cipro] citalopram AdvReac SUICIDAL Verified 07/07/22 07:38 THOUGHTS gabapentin [From Neurontin] AdvReac EFFECTED Verified 07/07/22 07:38 VISION AND HEARING hydrochlorothiazide AdvReac DIZZINESS Verified 07/07/22 07:38 levetiracetam [From Keppra] AdvReac Other Verified 07/07/22 07:38 [id number] Reductase AdvReac Other Verified 07/07/22 07:38 Inhibitor tramadol AdvReac Other Verified 07/07/22 07:38 Family History Father Colon cancer Hypertension Gastric ulcer Mother Heart disease Brother Diabetes Surgical History History of embolic filter insertion Hx of colonoscopy Social History Smoking Status: Never smoker alcohol intake: never substance use type: does not use Vital Signs Vital Signs Vital Signs: 11/12/22 09:34 Temperature 96.5 F L Temperature Source Temporal Pulse Rate 87 Respiratory Rate 18 Blood Pressure 130/71 H Blood Pressure Mean 90 Blood Pressure Source Monitor Blood Pressure Position Sitting Blood Pressure Location Right Arm Physical Exam Const alert, oriented x3 and no apparent distress General Appearance: cooperative and comfortable HEENT normocephalic and head/scalp atraumatic Lymph Lymphatic: lymphedema severe Resp normal respiratory effort Effort and Inspection: able to speak in complete sentences Cardio regular rate and regular rhythm Extremity General Extremity: edema bilateral lower extremity Details: severe Skin Wounds: wounds noted Wound Narrative: as in clinical panel Psych mental status grossly normal, thought process normal, cooperative and affect normal Debridement Note Debridement Note Wound debrided: LLE cluster Laterality: Left Type of Debridement: Selective debridement Anesthesia Used: 4% Lidocaine Solution Depth: Down to and including healthy tissue and in the subcutaneous layer Percentage of wound debrided: 100 Instrument Used: - (gauze) Tissue Removed: Yellow slough, devitalized tissue Severity: Fat Layer Exposed Amount of bleeding with debridement: Mild Bleeding Controlled with: Compression and gauze Patient tolerated procedure: Patient tolerated procedure well Post-Debridement Measurements and Additional Note: Post-Debridement Measurements/Treatment DEBBIE - Nurse 1 - General Ulcer Assessment Start: 11/12/22 09:34 Freq: Status: Active Protocol: ONDINA Activity Type Activity Date Activity User E-sign Co-sign Detail Recorded Client Recorded Date Recorded By Document 11/12/22 09:34 RB [id number] 11/12/22 09:49 RB 11/12/22 09:34 DEBBIE - Today's Visit Information Type of service Initial Visit Arrival Mode Ambulatory, Walker Transfer Assistance None Patient Identification Verified (Name & Yes ) Patient Requires Transmission-Based No Precautions Vital Signs Temperature (97.8 F-99.1 F) 96.5 F L Temperature Source Temporal Pulse Rate (60-100) 87 Pulse Location Monitor Respiratory Rate (12-18) 18 Respiratory rate source Observation Blood Pressure (90/60-120/80) 130/71 H Blood Pressure Mean 90 Source Monitor Position Sitting Blood Pressure Location Right Arm History Since Last Visit- (Skip if this is Patient's initial visit) Left Footwear Regular Shoe Right Footwear Regular Shoe Pain Scale: 0-10 Numeric Is Patient Pain Free? No bilat lower legs -Description Aching -Intensity 9 -Duration (hours) Acute -Pain Behavior Withdrawal from Touch -Pain Aggravating Factors ADL's,Exercise/ Activity -Alleviating Factors/Interventions Medication -Effectiveness of Alleviating Factor/ Moderately Intervention effective WC - Nurse 1 - General Ulcer Measurement Start: 11/12/22 09:34 Freq: Status: Active Protocol: Activity Type Activity Date Activity User E-sign Co-sign Detail Recorded Client Recorded Date Recorded By Document 11/12/22 09:34 RB [id number] 11/12/22 09:49 RB 11/12/22 09:34 Wound Center Nurse 1 16. LLE cluster -Combined with other wound No -Current Size (cm) - Length 13.3 -Current Size (cm) - Width 28 -Current Size (cm) - Depth 0.1 -Total Square Cm 372.4 -Photo Taken Yes -Tunneling No -Undermining/Tunneling No -Circular Undermining No -Exudate Type Serosanguineous -Wound Margin Distinct, Outline Attached -Granulation Amt Medium (34-66%) -Granulation Quality [place] -Slough/Fibrin Yes -Necrosis Amt Medium (34-66%) -Necrotic Tissue Type Adherent Slough -Structure Exposed N/A -Texture (Marie-wound Skin Appearance) Assessed, Localized Edema -Moisture (Marie-wound Skin Appearance) Assessed -Color (Marie-wound Skin Appearance) Assessed, Erythema, Hemosiderin Staining -Temperature (Marie-wound Skin No Abnormality Appearance) (Pt Warm) -Tenderness on Palpation (Marie-wound No Skin Appearance) -Ulcer Cleansing Wound Cleanser -Foul Odor after Cleansing No -Anesthetic Used 4% Lidocaine Solution,5% Lidocaine Gel 15.RLE medial -Combined with other wound No -Current Size (cm) - Length 2 -Current Size (cm) - Width 3.6 -Current Size (cm) - Depth 0.1 -Total Square Cm 7.2 -Photo Taken Yes -Tunneling No -Undermining/Tunneling No -Circular Undermining No -Exudate Amt Medium -Exudate Type Serosanguineous -Wound Margin Distinct, Outline Attached -Granulation Amt Medium (34-66%) -Granulation Quality [place] -Slough/Fibrin Yes -Necrosis Amt Medium (34-66%) -Necrotic Tissue Type Adherent Slough -Structure Exposed N/A -Texture (Marie-wound Skin Appearance) Assessed, Localized Edema -Moisture (Marie-wound Skin Appearance) Assessed -Color (Marie-wound Skin Appearance) Assessed -Temperature (Marie-wound Skin No Abnormality Appearance) (Pt Warm) -Tenderness on Palpation (Marie-wound No Skin Appearance) -Ulcer Cleansing Wound Cleanser -Foul Odor after Cleansing No -Anesthetic Used 4% Lidocaine Solution,5% Lidocaine Gel Lower Limb Edema Present Yes Right Calf (cm) 51 Right Ankle (cm) 31 Left Calf (cm) 52.5 Left Ankle (cm) 31 WC - Nurse 2 - General Ulcer CM Notes Start: 11/12/22 09:34 Freq: Status: Active Protocol: Activity Type Activity Date Activity User E-sign Co-sign Detail Recorded Client Recorded Date Recorded By Document 11/12/22 10:12 MW [id number] 11/12/22 10:36 MW Edit Result 11/12/22 10:12 MW (1) [id number] 11/12/22 10:37 MW (1) 15.RLE medial - Debridement - Open, 1st 20sq cm Yes => No 11/12/22 10:12 Wound Center Nurse 2 16. LLE cluster -Time 10:12 -Correct Patient Yes -Correct Side, Site, Position Yes -Correct Procedure Yes -Procedure Performed Yes -Type of Procedure Debridement -Clinical Debridement Epidermis / Dermis -Tissue Removed Epidermis -Post Debridement (cm) - Length 13.3 -Post Debridement (cm) - Width 28.0 -Post Debridement (cm) - Depth 0.1 -Total Square (Post) (cm) 372.40 -Area of Debridement (cm) - Length 13.3 -Area of Debridement (cm) - Width 28.0 -Total Square (Area) (cm) 372.40 -Tunneling No -Undermining/Tunneling No -Circular Undermining No -Wound/Ulcer Outcome Not Healed -Ulcer Cleansing Rinsed/ Irrigated with Saline -Foul Odor after Cleansing No -Bioengineered Tissue No -Bleeding Controlled with Pressure -Treatment Response Procedure Tolerated Well -Offloading No -Debridement - Open, 1st 20sq cm Yes -Debridement, Open, ea addt'l 20sq cm 18 or part thereof 15.RLE medial -Time 10:12 -Correct Patient Yes -Correct Side, Site, Position Yes -Correct Procedure Yes -Procedure Performed Yes -Type of Procedure Debridement -Clinical Debridement Epidermis / Dermis -Tissue Removed Epidermis -Post Debridement (cm) - Length 2.0 -Post Debridement (cm) - Width 3.6 -Post Debridement (cm) - Depth 0.1 -Total Square (Post) (cm) 7.20 -Area of Debridement (cm) - Length 2.0 -Area of Debridement (cm) - Width 3.6 -Total Square (Area) (cm) 7.20 -Tunneling No -Undermining/Tunneling No -Circular Undermining No -Wound/Ulcer Outcome Not Healed -Ulcer Cleansing Rinsed/ Irrigated with Saline -Foul Odor after Cleansing No -Bioengineered Tissue No -Treatment Response Procedure Tolerated Well -Offloading No -Debridement - Open, 1st 20sq cm No -Debridement - Subq, 1st 20sq cm No Pain Scale: 0-10 Numeric Is Patient Pain Free? Yes WC - Nurse 3 - General Ulcer D/C NN Start: 11/12/22 09:34 Freq: Status: Active Protocol: Activity Type Activity Date Activity User E-sign Co-sign Detail Recorded Client Recorded Date Recorded By Document 11/12/22 10:40 RB [id number] 11/12/22 10:42 RB Edit Result 11/12/22 10:40 RB (1) [id number] 11/12/22 12:12 DL (1) Notes: => Pt taken over to hospital for VDU to r/o DVT. Returned to have leg wrapped after test. 11/12/22 10:40 Wound Care Center Nurse 3 16. LLE cluster -Ulcer Cleansing Rinsed/ Irrigated with Saline -Primary Dressing Applied Fibracol Plus 4x4 -Other Dressing abd -Fibracol Plus 4x4 1 15.RLE medial -Ulcer Cleansing Rinsed/ Irrigated with Saline -Primary Dressing Applied Fibracol Plus 4x4 -Other Dressing abd -Fibracol Plus 4x4 1 bilateral -Multi-Layered Wrap Application Multi-Layer Comp - Bilat ($ ) Treatment Response Procedure Tolerated Well Pain Scale: 0-10 Numeric Is Patient Pain Free? No WC - Visit Discharge Discharge Condition Stable Ambulatory Status Ambulatory, Walker Transportation Private Auto Medication Reconcilliation completed & No provided to patient/care provider Clinical Summary of Care Provided Yes Notes: Pt taken over to hospital for VDU to r/o DVT . Returned to have leg wrapped after test. Additional Wound Wound debrided: right medial LE Laterality: Right Type of Debridement: Selective debridement Anesthesia Used: 4% Lidocaine Solution Depth: Down to and including healthy tissue and in the subcutaneous layer Percentage of wound debrided: 100 Instrument Used: - (gauze) Tissue Removed: Yellow slough, devitalized tissue Severity: Fat Layer Exposed Amount of bleeding with debridement: Mild Bleeding Controlled with: Compression and gauze Patient tolerated procedure: Patient tolerated procedure well Radiology Impression Venous Doppler Study 11/12/22 10:56 Interpretation Summary There is no evidence of left lower extremity deep vein thrombosis. Left great saphenous vein appears patent and compressible segmentally. Left groin 4.35 x 1.10 cm enlarged lymph node. Normal flow patterns right common femoral vein This examination was noted to be technically difficult Ordering Physician: Patricia Garcia Referring Physician: Patricia Garcia Performed By: Gary Soto RVT Assessment/Plan Assessment/Plan (1) Ulcer of right lower extremity with fat layer exposed: CODE(S): L97.912 - Non-pressure chronic ulcer of unspecified part of right lower leg with fat layer exposed (2) Ulcer of left lower extremity with fat layer exposed: CODE(S): L97.922 - Non-pressure chronic ulcer of unspecified part of left lower leg with fat layer exposed (3) Venous insufficiency: CODE(S): I87.2 - Venous insufficiency (chronic) (peripheral) (4) Edema: CODE(S): R60.9 - Edema, unspecified QUALIFIERS: Edema type: unspecified Qualified Code(s): R60.9 - Edema, unspecified (5) History of CVA (cerebrovascular accident): CODE(S): Z86.73 - Personal history of transient ischemic attack (TIA), and cerebral infarction without residual deficits (6) Venous ulcer of left lower extremity with varicose veins: CODE(S): I83.029 - Varicose veins of left lower extremity with ulcer of unspecified site (7) Venous ulcer of both lower extremities with varicose veins: CODE(S): I83.019 - Varicose veins of right lower extremity with ulcer of unspecified site; I83.029 - Varicose veins of left lower extremity with ulcer of unspecified site (8) Venous ulcers of both lower extremities: CODE(S): I87.2 - Venous insufficiency (chronic) (peripheral) (9) Lymphedema: CODE(S): I89.0 - Lymphedema, not elsewhere classified PLAN: Plan Debridement performed today in clinic as annotated above. At home wound-care instructions: Apply Fibracol to open areas. Then will apply 3M compression wraps to bilateral legs. Keep dressing clean and dry. Will have Home Health change dressings on Tuesday. Off-loading: The patient was instructed to avoid pressure and friction on the affected areas. Reposition every 2 hours at minimum. Avoid prolonged standing and/or dangling of legs. When seated, feet should be elevated at chest level. Frequent ambulation is encouraged. Diet: Patient encouraged to increase protein intake while taking caution to avoid high carbohydrate and/or sugar intake. Labs/cultures/imaging: Culture taken today and venous US ordered to rule out DVT. Labs ordered. Follow-up: Return in 1 week for wound care follow up. Return sooner or report to the emergency room should symptoms worsen, or new symptoms arise. Note: [employer] speech recognition carding supervisor software was used to create portions of this document. Sound-alike and misspelled words, as well as other carding supervisor errors may be contained in the documentation.
[2022-11-19 09:44] VITALS: BP 119/64; PULSE 84; RESP 18; TEMP 36.1
--- NOTE | 2022-11-19 14:18 | PN.PCM_ITS ---
History of Present Illness Date of Service: 11/19/22 Chief Complaint: venous ulcers of bilateral lower extremities History of Wound: Mauricio is a 67 yo gentleman who is here today for evaluation of ulcers to to his bilateral lower legs. He has been treated multiple times in the past at the wound healing center for similar ulcers. The left LE ulcer started after he developed increased swelling and blisters of left leg in October and the right leg started sometime at the end of October. He was seen at PCP's office a culture was taken and it was resistant to several antibiotics. He was treated initially with Levaquin but had myalgias and then was treated with doxycycline which he finished 2 days ago. He denies improvement and is having swelling to his left calf and thigh. He has been having swelling to both lower extremities for many years and it has worsened over the last few months. He has not been compliant with compression. He has had increased pain especially in the left leg. He has clear yellow drainage and redness without odor or warmth. He is anti- coagulated on coumadin. He has been washing with Dial soap and witch ifrah. He had been using Collagen at times and using Calcium Alginate and covering with ABD pads during October. He was treated with 3M compression and Aquacel Ag. He was referred to the wound center for ongoing treatment. His ulcers have moderate to heavy drainage. Subjective Subjective He tolerated treatment with 3M compression but has had increased pain and swelling. He denies any fever, chills, increased drainage, odor or pain. Objective Data Objective Data Vital Signs: Vital Signs Temp Pulse Resp BP 97 F L 84 18 119/64 11/19/22 09:44 11/19/22 09:44 11/19/22 09:44 11/19/22 09:44 Lab / Micro Data Micro: Microbiology 11/12/22 10:30 Wound Abcess - Leg, Left Gram Stain - Final 11/12/22 10:30 Wound Abcess - Leg, Left Wound Culture - Final Stenotrophomonas maltophilia 11/12/22 10:30 Wound Abcess - Leg, Left Anaerobic Culture - Final No anaerobic bacteria isolated. Physical Exam Const alert, oriented x3 and no apparent distress General Appearance: cooperative and comfortable HEENT normocephalic and head/scalp atraumatic Lymph Lymphatic: lymphedema severe Resp normal respiratory effort Effort and Inspection: able to speak in complete sentences Cardio regular rate and regular rhythm Extremity General Extremity: edema bilateral lower extremity Details: severe Skin Wounds: wounds noted Wound Narrative: as in clinical panel Psych mental status grossly normal, thought process normal, cooperative and affect normal Debridement Note Debridement Note Wound debrided: LLE cluster Laterality: Left Type of Debridement: Selective debridement Anesthesia Used: 4% Lidocaine Solution Depth: Down to and including healthy tissue and in the subcutaneous layer Percentage of wound debrided: 100 Instrument Used: - (gauze) Tissue Removed: Yellow slough, devitalized tissue Severity: Fat Layer Exposed Amount of bleeding with debridement: Mild Bleeding Controlled with: Compression and gauze Patient tolerated procedure: Patient tolerated procedure well Post-Debridement Measurements and Additional Note: Post-Debridement Measurements/Treatment - Nurse 1 - General Ulcer Assessment Start: 11/12/22 09:34 Freq: Status: Active Protocol: ONDINA Activity Type Activity Date Activity User E-sign Co-sign Detail Recorded Client Recorded Date Recorded By Document 11/12/22 09:34 [id number] 11/12/22 09:49 RB Document 11/19/22 09:44 RB [id number] 11/19/22 10:02 RB 11/12/22 11/19/22 09:34 09:44 - Today's Visit Information Type of service Initial Visit Follow-up Visit (Physician/LEARNING ADMINISTRATOR ) Arrival Mode Ambulatory, Ambulatory Walker Transfer Assistance None None Patient Identification Verified (Name & Yes Yes ) Patient Requires Transmission-Based No No Precautions Vital Signs Temperature (97.8 F-99.1 F) 96.5 F L 97 F L Temperature Source Temporal Temporal Pulse Rate (60-100) 87 84 Pulse Location Monitor Monitor Respiratory Rate (12-18) 18 18 Respiratory rate source Observation Observation Blood Pressure (90/60-120/80) 130/71 H 119/64 Blood Pressure Mean (mm Hg) 90 82 Source Monitor Monitor Position Sitting Semi-Fowlers Blood Pressure Location Right Arm Left Arm History Since Last Visit- (Skip if this is Patient's initial visit) Have you changed medications since your No last visit? Any new allergies or adverse reactions No Had a fall/change in ADL's that may No increase risk of falls Signs or symptoms of abuse and/or No neglect since last visit Have you been in the hospital since your No last visit? Has dressing in place as prescribed Yes Has compression in place as prescribed Yes Has offloadiing in place as prescribed No Experienced any changes in pain level or No management Left Footwear Regular Shoe Right Footwear Regular Shoe Pain Scale: 0-10 Numeric Is Patient Pain Free? No Yes bilat lower legs -Description Aching -Intensity 9 -Duration (hours) Acute -Pain Behavior Withdrawal from Touch -Pain Aggravating Factors ADL's,Exercise/ Activity -Alleviating Factors/Interventions Medication -Effectiveness of Alleviating Factor/ Moderately Intervention effective WC - Nurse 1 - General Ulcer Measurement Start: 11/12/22 09:34 Freq: Status: Active Protocol: Activity Type Activity Date Activity User E-sign Co-sign Detail Recorded Client Recorded Date Recorded By Document 11/12/22 09:34 RB [id number] 11/12/22 09:49 RB Document 11/19/22 09:44 RB [id number] 11/19/22 10:02 RB 11/12/22 11/19/22 09:34 09:44 Wound Center Nurse 1 16. LLE cluster -Combined with other wound No No -Current Size (cm) - Length 13.3 11.5 -Current Size (cm) - Width 28 3.5 -Current Size (cm) - Depth 0.1 0.1 -Total Square Cm 372.4 40.25 -Photo Taken Yes Yes -Tunneling No No -Undermining/Tunneling No No -Circular Undermining No No -Exudate Type Serosanguineous -Wound Margin Distinct, Outline Attached -Granulation Amt Medium (34-66%) Medium (34-66%) -Granulation Quality Neshanic Neshanic -Slough/Fibrin Yes Yes -Necrosis Amt Medium (34-66%) Medium (34-66%) -Necrotic Tissue Type Adherent Slough Adherent Slough -Structure Exposed N/A N/A -Texture (Marie-wound Skin Appearance) Assessed, Assessed, Localized Edema Localized Edema -Moisture (Marie-wound Skin Appearance) Assessed Assessed -Color (Marie-wound Skin Appearance) Assessed, Assessed Erythema, Hemosiderin Staining -Temperature (Marie-wound Skin No Abnormality No Abnormality Appearance) (Pt Warm) (Pt Warm) -Tenderness on Palpation (Marie-wound No No Skin Appearance) -Ulcer Cleansing Wound Cleanser Wound Cleanser -Foul Odor after Cleansing No No -Anesthetic Used 4% Lidocaine 4% Lidocaine Solution,5% Solution Lidocaine Gel 15.RLE medial -Combined with other wound No No -Current Size (cm) - Length 2 8.2 -Current Size (cm) - Width 3.6 8.5 -Current Size (cm) - Depth 0.1 0.1 -Total Square Cm 7.2 69.70 -Photo Taken Yes Yes -Tunneling No No -Undermining/Tunneling No No -Circular Undermining No No -Exudate Amt Medium -Exudate Type Serosanguineous -Wound Margin Distinct, Outline Attached -Granulation Amt Medium (34-66%) Medium (34-66%) -Granulation Quality Neshanic Neshanic -Slough/Fibrin Yes Yes -Necrosis Amt Medium (34-66%) Medium (34-66%) -Necrotic Tissue Type Adherent Slough Adherent Slough -Structure Exposed N/A N/A -Texture (Marie-wound Skin Appearance) Assessed, Assessed, Localized Edema Localized Edema -Moisture (Marie-wound Skin Appearance) Assessed Assessed -Color (Marie-wound Skin Appearance) Assessed Assessed -Temperature (Marie-wound Skin No Abnormality No Abnormality Appearance) (Pt Warm) (Pt Warm) -Tenderness on Palpation (Marie-wound No No Skin Appearance) -Ulcer Cleansing Wound Cleanser Wound Cleanser -Foul Odor after Cleansing No No -Anesthetic Used 4% Lidocaine 4% Lidocaine Solution,5% Solution Lidocaine Gel Lower Limb Edema Present Yes Yes Right Calf (cm) 51 49.5 Right Ankle (cm) 31 32.9 Left Calf (cm) 52.5 50.5 Left Ankle (cm) 31 32.8 WC - Nurse 2 - General Ulcer CM Notes Start: 11/12/22 09:34 Freq: Status: Active Protocol: Activity Type Activity Date Activity User E-sign Co-sign Detail Recorded Client Recorded Date Recorded By Document 11/12/22 10:12 MW [id number] 11/12/22 10:36 MW Edit Result 11/12/22 10:12 MW (1) [id number] 11/12/22 10:37 MW Document 11/19/22 10:08 MW [id number] 11/19/22 10:30 MW (1) 15.RLE medial - Debridement - Open, 1st 20sq cm Yes => No 11/12/22 11/19/22 10:12 10:08 Wound Center Nurse 2 #17 right lateral LE cluster -Time 10:27 -Correct Patient Yes -Correct Side, Site, Position Yes -Correct Procedure Yes -Procedure Performed Yes -Type of Procedure Debridement -Clinical Debridement Epidermis / Dermis -Tissue Removed Epidermis -Post Debridement (cm) - Length 1.2 -Post Debridement (cm) - Width 1.0 -Post Debridement (cm) - Depth 0.1 -Total Square (Post) (cm) 1.20 -Area of Debridement (cm) - Length 1.2 -Area of Debridement (cm) - Width 1.0 -Total Square (Area) (cm) 1.20 -Tunneling No -Undermining/Tunneling No -Circular Undermining No -Wound/Ulcer Outcome Not Healed -Ulcer Cleansing Rinsed/ Irrigated with Saline -Foul Odor after Cleansing No -Bioengineered Tissue No -Bleeding Controlled with Pressure -Treatment Response Procedure Tolerated Well -Offloading No -Debridement - Open, 1st 20sq cm No 16. LLE cluster -Time 10:12 10:08 -Correct Patient Yes Yes -Correct Side, Site, Position Yes Yes -Correct Procedure Yes Yes -Procedure Performed Yes Yes -Type of Procedure Debridement Debridement -Clinical Debridement Epidermis / Epidermis / Dermis Dermis -Tissue Removed Epidermis Epidermis -Post Debridement (cm) - Length 13.3 14.0 -Post Debridement (cm) - Width 28.0 25.0 -Post Debridement (cm) - Depth 0.1 0.1 -Total Square (Post) (cm) 372.40 350.00 -Area of Debridement (cm) - Length 13.3 14.0 -Area of Debridement (cm) - Width 28.0 25.0 -Total Square (Area) (cm) 372.40 350.00 -Tunneling No No -Undermining/Tunneling No No -Circular Undermining No No -Wound/Ulcer Outcome Not Healed Not Healed -Ulcer Cleansing Rinsed/ Rinsed/ Irrigated with Irrigated with Saline Saline -Foul Odor after Cleansing No No -Bioengineered Tissue No No -Bleeding Controlled with Pressure Pressure -Treatment Response Procedure Procedure Tolerated Well Tolerated Well -Offloading No No -Debridement - Open, 1st 20sq cm Yes Yes -Debridement, Open, ea addt'l 20sq cm 18 18 or part thereof 15.RLE medial -Time 10:12 10:08 -Correct Patient Yes Yes -Correct Side, Site, Position Yes Yes -Correct Procedure Yes Yes -Procedure Performed Yes Yes -Type of Procedure Debridement Debridement -Clinical Debridement Epidermis / Epidermis / Dermis Dermis -Tissue Removed Epidermis Epidermis -Post Debridement (cm) - Length 2.0 3.0 -Post Debridement (cm) - Width 3.6 3.8 -Post Debridement (cm) - Depth 0.1 0.1 -Total Square (Post) (cm) 7.20 11.40 -Area of Debridement (cm) - Length 2.0 3.0 -Area of Debridement (cm) - Width 3.6 3.8 -Total Square (Area) (cm) 7.20 11.40 -Tunneling No No -Undermining/Tunneling No No -Circular Undermining No No -Wound/Ulcer Outcome Not Healed Not Healed -Ulcer Cleansing Rinsed/ Rinsed/ Irrigated with Irrigated with Saline Saline -Foul Odor after Cleansing No No -Bioengineered Tissue No No -Bleeding Controlled with Pressure -Treatment Response Procedure Procedure Tolerated Well Tolerated Well -Offloading No No -Debridement - Open, 1st 20sq cm No No -Debridement - Subq, 1st 20sq cm No Pain Scale: 0-10 Numeric Is Patient Pain Free? Yes Yes WC - Nurse 3 - General Ulcer D/C NN Start: 11/12/22 09:34 Freq: Status: Active Protocol: Activity Type Activity Date Activity User E-sign Co-sign Detail Recorded Client Recorded Date Recorded By Document 11/12/22 10:40 RB [id number] 11/12/22 10:42 RB Edit Result 11/12/22 10:40 RB (1) [id number] 11/12/22 12:12 DL Document 11/19/22 11:03 RB [id number] 11/19/22 11:05 RB (1) Notes: => Pt taken over to hospital for VDU to r/o DVT. Returned to have leg wrapped after test. 11/12/22 11/19/22 10:40 11:03 Wound Care Center Nurse 3 #17 right lateral LE cluster -Ulcer Cleansing Rinsed/ Irrigated with Saline -Primary Dressing Applied Fibracol Plus 4x4 -Other Dressing abd -Fibracol Plus 4x4 1 16. LLE cluster -Ulcer Cleansing Rinsed/ Rinsed/ Irrigated with Irrigated with Saline Saline -Primary Dressing Applied Fibracol Plus Fibracol Plus 4x4 4x4,Optilok 8x12 -Other Dressing abd -Fibracol Plus 4x4 1 1 -Optilok 8x12 1 15.RLE medial -Ulcer Cleansing Rinsed/ Rinsed/ Irrigated with Irrigated with Saline Saline -Primary Dressing Applied Fibracol Plus Fibracol Plus 4x4 4x4 -Other Dressing abd abd -Fibracol Plus 4x4 1 1 bilateral -Multi-Layered Wrap Application Multi-Layer Multi-Layer Comp - Bilat ($ Comp - Bilat ($ ) ) Treatment Response Procedure Procedure Tolerated Well Tolerated Well Pain Scale: 0-10 Numeric Is Patient Pain Free? No No WC - Visit Discharge Discharge Condition Stable Stable Ambulatory Status Ambulatory, Ambulatory, Walker Walker Transportation Private Auto Private Auto Medication Reconcilliation completed & No No provided to patient/care provider Clinical Summary of Care Provided Yes Yes Notes: Pt taken over to hospital for VDU to r/o DVT . Returned to have leg wrapped after test. Additional Wound Wound debrided: right medial LE Laterality: Right Type of Debridement: Selective debridement Anesthesia Used: 4% Lidocaine Solution Depth: Down to and including healthy tissue and in the subcutaneous layer Percentage of wound debrided: 100 Instrument Used: - (gauze) Tissue Removed: Yellow slough, devitalized tissue Severity: Fat Layer Exposed Amount of bleeding with debridement: Mild Bleeding Controlled with: Compression and gauze Patient tolerated procedure: Patient tolerated procedure well Assessment/Plan Assessment/Plan (1) Ulcer of right lower extremity with fat layer exposed: CODE(S): L97.912 - Non-pressure chronic ulcer of unspecified part of right lower leg with fat layer exposed (2) Ulcer of left lower extremity with fat layer exposed: CODE(S): L97.922 - Non-pressure chronic ulcer of unspecified part of left lower leg with fat layer exposed (3) Venous insufficiency: CODE(S): I87.2 - Venous insufficiency (chronic) (peripheral) (4) Edema: CODE(S): R60.9 - Edema, unspecified QUALIFIERS: Edema type: unspecified Qualified Code(s): R60.9 - Edema, unspecified (5) History of CVA (cerebrovascular accident): CODE(S): Z86.73 - Personal history of transient ischemic attack (TIA), and cerebral infarction without residual deficits (6) Venous ulcer of left lower extremity with varicose veins: CODE(S): I83.029 - Varicose veins of left lower extremity with ulcer of unspecified site (7) Venous ulcer of both lower extremities with varicose veins: CODE(S): I83.019 - Varicose veins of right lower extremity with ulcer of unspecified site; I83.029 - Varicose veins of left lower extremity with ulcer of unspecified site (8) Venous ulcers of both lower extremities: CODE(S): I87.2 - Venous insufficiency (chronic) (peripheral) (9) Lymphedema: CODE(S): I89.0 - Lymphedema, not elsewhere classified PLAN: Plan Debridement performed today in clinic as annotated above. At home wound-care instructions: Apply Fibracol to open areas. Then will apply 3M compression wraps to bilateral legs. Keep dressing clean and dry. Will have Home Health change dressings on Tuesday. Off-loading: The patient was instructed to avoid pressure and friction on the affected areas. Reposition every 2 hours at minimum. Avoid prolonged standing and/or dangling of legs. When seated, feet should be elevated at chest level. Frequent ambulation is encouraged. Diet: Patient encouraged to increase protein intake while taking caution to avoid high carbohydrate and/or sugar intake. Labs/cultures/imaging: Culture taken today and venous US ordered to rule out DVT last week was negative for DVT. Labs ordered. Follow-up: Return in 1 week for wound care follow up. Return sooner or report to the emergency room should symptoms worsen, or new symptoms arise. Note: [employer] speech recognition co founder and ceo software was used to create portions of this document. Sound-alike and misspelled words, as well as other co founder and ceo errors may be contained in the documentation.
[2022-11-26 10:06] VITALS: BP 111/72; PULSE 73; RESP 18; TEMP 36.6
--- NOTE | 2022-11-26 15:15 | PCM.WC.PN ---
History of Present Illness Date of Service: 12/03/22 Chief Complaint: venous ulcers of bilateral lower extremities History of Wound: Mauricio is a 67 yo gentleman who is here today for evaluation of ulcers to to his bilateral lower legs. He has been treated multiple times in the past at the wound healing center for similar ulcers. The left LE ulcer started after he developed increased swelling and blisters of left leg in October and the right leg started sometime at the end of October. He was seen at PCP's office a culture was taken and it was resistant to several antibiotics. He was treated initially with Levaquin but had myalgias and then was treated with doxycycline which he finished 2 days ago. He denies improvement and is having swelling to his left calf and thigh. He has been having swelling to both lower extremities for many years and it has worsened over the last few months. He has not been compliant with compression. He has had increased pain especially in the left leg. He has clear yellow drainage and redness without odor or warmth. He is anti-coagulated on coumadin. He has been washing with Dial soap and witch ifrah. He had been using Collagen at times and using Calcium Alginate and covering with ABD pads during October. He was treated with 3M compression and Aquacel Ag. He was referred to the wound center for ongoing treatment. His ulcers have moderate to heavy drainage. Subjective Subjective He tolerated treatment with 3M compression but continues to have increased pain and swelling. His ulcers of his left lower leg have increased over the last week. He is scheduled to see ID 12/15/22. He felt that he had a low grade fever the last 24 hours. His pain is increasing in his left leg. He has been elevating his leg. He was in bed for most of the day yesterday. He denies any fever, chills, increased drainage, odor or pain. Objective Data Objective Data Vital Signs: Vital Signs Temp Pulse Resp BP 98 F 73 18 111/72 11/26/22 10:06 11/26/22 10:06 11/26/22 10:06 11/26/22 10:06 Lab / Micro Data Micro: Microbiology 11/12/22 10:30 Wound Abcess - Leg, Left Gram Stain - Final 11/12/22 10:30 Wound Abcess - Leg, Left Wound Culture - Final Stenotrophomonas maltophilia 11/12/22 10:30 Wound Abcess - Leg, Left Anaerobic Culture - Final No anaerobic bacteria isolated. Physical Exam Const alert, oriented x3 and no apparent distress General Appearance: cooperative and comfortable HEENT normocephalic and head/scalp atraumatic Lymph Lymphatic: lymphedema severe Resp normal respiratory effort Effort and Inspection: able to speak in complete sentences Cardio regular rate and regular rhythm Extremity General Extremity: edema bilateral lower extremity Details: severe Skin Wounds: wounds noted Wound Narrative: as in clinical panel Psych mental status grossly normal, thought process normal, cooperative and affect normal Debridement Note Debridement Note Wound debrided: LLE cluster Laterality: Left Type of Debridement: Excisional debridement Anesthesia Used: 4% Lidocaine Solution Depth: Down to and including healthy tissue and in the subcutaneous layer Percentage of wound debrided: 100 Instrument Used: - (Misonix) Tissue Removed: Yellow slough, devitalized tissue Severity: Fat Layer Exposed Amount of bleeding with debridement: Mild Bleeding Controlled with: Compression and gauze Patient tolerated procedure: Patient tolerated procedure well Post-Debridement Measurements and Additional Note: Post-Debridement Measurements/Treatment - Nurse 1 - General Ulcer Assessment Start: 11/12/22 09:34 Freq: Status: Active Protocol: DEBBIE.MARIAJOSE Activity Type Activity Date Activity User E-sign Co-sign Detail Recorded Client Recorded Date Recorded By Document 11/12/22 09:34 RB [id number] 11/12/22 09:49 RB Document 11/19/22 09:44 RB [id number] 11/19/22 10:02 RB Document 11/26/22 10:06 DL [id number] 11/26/22 10:10 DL 11/12/22 11/19/22 11/26/22 09:34 09:44 10:06 - Today's Visit Information Type of service Initial Visit Follow-up Visit Follow-up Visit (Physician/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 (Physician/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 ) ) Arrival Mode Ambulatory, Ambulatory Ambulatory, Walker Walker Transfer Assistance None None None Patient Identification Verified (Name & Yes Yes Yes ) Patient Requires Transmission-Based No No No Precautions Vital Signs Temperature (97.8 F-99.1 F) 96.5 F L 97 F L 98 F Temperature Source Temporal Temporal Temporal Pulse Rate (60-100) 87 84 73 Pulse Location Monitor Monitor Monitor Respiratory Rate (12-18) 18 18 18 Respiratory rate source Observation Observation Observation Blood Pressure (90/60-120/80) 130/71 H 119/64 111/72 Blood Pressure Mean (mm Hg) 90 82 85 Source Monitor Monitor Monitor Position Sitting Semi-Fowlers Blood Pressure Location Right Arm Left Arm History Since Last Visit- (Skip if this is Patient's initial visit) Have you changed medications since your No No last visit? Any new allergies or adverse reactions No No Had a fall/change in ADL's that may No No increase risk of falls Signs or symptoms of abuse and/or No No neglect since last visit Have you been in the hospital since your No No last visit? Has dressing in place as prescribed Yes Yes Has compression in place as prescribed Yes No Has offloadiing in place as prescribed No N/A Experienced any changes in pain level or No No management Left Footwear Regular Shoe Right Footwear Regular Shoe Pain Scale: 0-10 Numeric Is Patient Pain Free? No Yes Yes bilat lower legs -Description Aching -Intensity 9 -Duration (hours) Acute -Pain Behavior Withdrawal from Touch -Pain Aggravating Factors ADL's,Exercise/ Activity -Alleviating Factors/Interventions Medication -Effectiveness of Alleviating Factor/ Moderately Intervention effective WC - Nurse 1 - General Ulcer Measurement Start: 11/12/22 09:34 Freq: Status: Active Protocol: Activity Type Activity Date Activity User E-sign Co-sign Detail Recorded Client Recorded Date Recorded By Document 11/12/22 09:34 RB [id number] 11/12/22 09:49 RB Document 11/19/22 09:44 RB [id number] 11/19/22 10:02 RB Document 11/26/22 10:06 DL [id number] 11/26/22 10:10 DL 11/12/22 11/19/22 11/26/22 09:34 09:44 10:06 Wound Center Nurse 1 #17 right lateral LE cluster -Current Size (cm) - Length 2.5 -Current Size (cm) - Width 6.4 -Current Size (cm) - Depth 0.1 -Total Square Cm 16.00 -Photo Taken No -Exudate Amt Medium -Exudate Type Serosanguineous -Wound Margin Indistinct, Non -Visible -Granulation Amt Medium (34-66%) -Granulation Quality Hazard -Necrosis Amt Medium (34-66%) -Necrotic Tissue Type Adherent Slough -Structure Exposed N/A -Texture (Marie-wound Skin Appearance) Localized Edema ,Scarring -Moisture (Marie-wound Skin Appearance) Weeping -Color (Marie-wound Skin Appearance) Hemosiderin Staining -Tenderness on Palpation (Marie-wound No Skin Appearance) -Ulcer Cleansing Soap and Water -Foul Odor after Cleansing No -Anesthetic Used 4% Lidocaine Solution 16. LLE cluster -Combined with other wound No No -Current Size (cm) - Length 13.3 11.5 17 -Current Size (cm) - Width 28 3.5 30 -Current Size (cm) - Depth 0.1 0.1 0.2 -Total Square Cm 372.4 40.25 510 -Photo Taken Yes Yes No -Tunneling No No -Undermining/Tunneling No No -Circular Undermining No No -Exudate Amt Large -Exudate Type Serosanguineous Serosanguineous -Wound Margin Distinct, Indistinct, Non Outline -Visible Attached -Granulation Amt Medium (34-66%) Medium (34-66%) Medium (34-66%) -Granulation Quality Hazard Hazard Hazard -Slough/Fibrin Yes Yes -Necrosis Amt Medium (34-66%) Medium (34-66%) Medium (34-66%) -Necrotic Tissue Type Adherent Slough Adherent Slough Adherent Slough -Structure Exposed N/A N/A N/A -Texture (Marie-wound Skin Appearance) Assessed, Assessed, Excoriation, Localized Edema Localized Edema Localized Edema -Moisture (Marie-wound Skin Appearance) Assessed Assessed Weeping -Color (Marie-wound Skin Appearance) Assessed, Assessed Erythema Erythema, Hemosiderin Staining -Temperature (Marie-wound Skin No Abnormality No Abnormality No Abnormality Appearance) (Pt Warm) (Pt Warm) (Pt Warm) -Tenderness on Palpation (Marie-wound No No Yes Skin Appearance) -Ulcer Cleansing Wound Cleanser Wound Cleanser Soap and Water -Foul Odor after Cleansing No No No -Anesthetic Used 4% Lidocaine 4% Lidocaine 4% Lidocaine Solution,5% Solution Solution Lidocaine Gel 15.RLE medial -Combined with other wound No No -Current Size (cm) - Length 2 8.2 9 -Current Size (cm) - Width 3.6 8.5 8 -Current Size (cm) - Depth 0.1 0.1 0.1 -Total Square Cm 7.2 69.70 72 -Photo Taken Yes Yes No -Tunneling No No -Undermining/Tunneling No No -Circular Undermining No No -Exudate Amt Medium Medium -Exudate Type Serosanguineous Serosanguineous -Wound Margin Distinct, Indistinct, Non Outline -Visible Attached -Granulation Amt Medium (34-66%) Medium (34-66%) Medium (34-66%) -Granulation Quality Hazard Hazard Hazard -Slough/Fibrin Yes Yes -Necrosis Amt Medium (34-66%) Medium (34-66%) Medium (34-66%) -Necrotic Tissue Type Adherent Slough Adherent Slough Adherent Slough -Structure Exposed N/A N/A N/A -Texture (Marie-wound Skin Appearance) Assessed, Assessed, Localized Edema Localized Edema Localized Edema -Moisture (Marie-wound Skin Appearance) Assessed Assessed Weeping -Color (Marie-wound Skin Appearance) Assessed Assessed Hemosiderin Staining -Temperature (Marie-wound Skin No Abnormality No Abnormality No Abnormality Appearance) (Pt Warm) (Pt Warm) (Pt Warm) -Tenderness on Palpation (Marie-wound No No No Skin Appearance) -Ulcer Cleansing Wound Cleanser Wound Cleanser Soap and Water -Foul Odor after Cleansing No No No -Anesthetic Used 4% Lidocaine 4% Lidocaine 4% Lidocaine Solution,5% Solution Solution Lidocaine Gel Lower Limb Edema Present Yes Yes Right Calf (cm) 51 49.5 46 Right Ankle (cm) 31 32.9 29.5 Left Calf (cm) 52.5 50.5 48.6 Left Ankle (cm) 31 32.8 29.8 WC - Nurse 2 - General Ulcer CM Notes Start: 11/12/22 09:34 Freq: Status: Active Protocol: Activity Type Activity Date Activity User E-sign Co-sign Detail Recorded Client Recorded Date Recorded By Document 11/12/22 10:12 MW [id number] 11/12/22 10:36 MW Edit Result 11/12/22 10:12 MW (1) [id number] 11/12/22 10:37 MW Document 11/19/22 10:08 MW [id number] 11/19/22 10:30 MW Document 11/26/22 11:08 MW [id number] 11/26/22 11:29 MW (1) 15.RLE medial - Debridement - Open, 1st 20sq cm Yes => No 11/12/22 11/19/22 11/26/22 10:12 10:08 11:08 Wound Center Nurse 2 #17 right lateral LE cluster -Time 10:27 11:17 -Correct Patient Yes Yes -Correct Side, Site, Position Yes Yes -Correct Procedure Yes Yes -Procedure Performed Yes Yes -Type of Procedure Debridement Debridement -Clinical Debridement Epidermis / Subcutaneous Dermis -Tissue Removed Epidermis Subcutaneous -Post Debridement (cm) - Length 1.2 7.0 -Post Debridement (cm) - Width 1.0 2.0 -Post Debridement (cm) - Depth 0.1 0.1 -Total Square (Post) (cm) 1.20 14.00 -Area of Debridement (cm) - Length 1.2 7.0 -Area of Debridement (cm) - Width 1.0 2.0 -Total Square (Area) (cm) 1.20 14.00 -Tunneling No No -Undermining/Tunneling No No -Circular Undermining No No -Wound/Ulcer Outcome Not Healed Not Healed -Ulcer Cleansing Rinsed/ Rinsed/ Irrigated with Irrigated with Saline Saline -Foul Odor after Cleansing No No -Bioengineered Tissue No No -Bleeding Controlled with Pressure Pressure -Treatment Response Procedure Procedure Tolerated Well Tolerated Well -Offloading No No -Debridement - Open, 1st 20sq cm No -Debridement - Subq, 1st 20sq cm Yes -Debridement, SubQ, ea addt'l 20sq cm 39 or part thereof 16. LLE cluster -Time 10:12 10:08 11:17 -Correct Patient Yes Yes Yes -Correct Side, Site, Position Yes Yes Yes -Correct Procedure Yes Yes Yes -Procedure Performed Yes Yes Yes -Type of Procedure Debridement Debridement Debridement -Clinical Debridement Epidermis / Epidermis / Subcutaneous Dermis Dermis -Tissue Removed Epidermis Epidermis Subcutaneous -Post Debridement (cm) - Length 13.3 14.0 20.0 -Post Debridement (cm) - Width 28.0 25.0 36.0 -Post Debridement (cm) - Depth 0.1 0.1 0.1 -Total Square (Post) (cm) 372.40 350.00 720.00 -Area of Debridement (cm) - Length 13.3 14.0 20.0 -Area of Debridement (cm) - Width 28.0 25.0 36.0 -Total Square (Area) (cm) 372.40 350.00 720.00 -Tunneling No No No -Undermining/Tunneling No No No -Circular Undermining No No No -Wound/Ulcer Outcome Not Healed Not Healed Not Healed -Ulcer Cleansing Rinsed/ Rinsed/ Rinsed/ Irrigated with Irrigated with Irrigated with Saline Saline Saline -Foul Odor after Cleansing No No No -Bioengineered Tissue No No No -Bleeding Controlled with Pressure Pressure Pressure -Treatment Response Procedure Procedure Procedure Tolerated Well Tolerated Well Tolerated Well -Offloading No No No -Debridement - Open, 1st 20sq cm Yes Yes -Debridement, Open, ea addt'l 20sq cm 18 18 or part thereof -Debridement - Subq, 1st 20sq cm No 15.RLE medial -Time 10:12 10:08 11:17 -Correct Patient Yes Yes Yes -Correct Side, Site, Position Yes Yes Yes -Correct Procedure Yes Yes Yes -Procedure Performed Yes Yes Yes -Type of Procedure Debridement Debridement Debridement -Clinical Debridement Epidermis / Epidermis / Subcutaneous Dermis Dermis -Tissue Removed Epidermis Epidermis Subcutaneous -Post Debridement (cm) - Length 2.0 3.0 8.5 -Post Debridement (cm) - Width 3.6 3.8 7.0 -Post Debridement (cm) - Depth 0.1 0.1 0.1 -Total Square (Post) (cm) 7.20 11.40 59.50 -Area of Debridement (cm) - Length 2.0 3.0 8.5 -Area of Debridement (cm) - Width 3.6 3.8 7.0 -Total Square (Area) (cm) 7.20 11.40 59.50 -Tunneling No No No -Undermining/Tunneling No No No -Circular Undermining No No No -Wound/Ulcer Outcome Not Healed Not Healed Not Healed -Ulcer Cleansing Rinsed/ Rinsed/ Rinsed/ Irrigated with Irrigated with Irrigated with Saline Saline Saline -Foul Odor after Cleansing No No No -Bioengineered Tissue No No No -Bleeding Controlled with Pressure Pressure -Treatment Response Procedure Procedure Procedure Tolerated Well Tolerated Well Tolerated Well -Offloading No No No -Debridement - Open, 1st 20sq cm No No -Debridement - Subq, 1st 20sq cm No No Pain Scale: 0-10 Numeric Is Patient Pain Free? Yes Yes Yes WC - Nurse 3 - General Ulcer D/C NN Start: 11/12/22 09:34 Freq: Status: Active Protocol: Activity Type Activity Date Activity User E-sign Co-sign Detail Recorded Client Recorded Date Recorded By Document 11/12/22 10:40 RB [id number] 11/12/22 10:42 RB Edit Result 11/12/22 10:40 RB (1) [id number] 11/12/22 12:12 DL Document 11/19/22 11:03 RB [id number] 11/19/22 11:05 RB (1) Notes: => Pt taken over to hospital for VDU to r/o DVT. Returned to have leg wrapped after test. 11/12/22 11/19/22 10:40 11:03 Wound Care Center Nurse 3 #17 right lateral LE cluster -Ulcer Cleansing Rinsed/ Irrigated with Saline -Primary Dressing Applied Fibracol Plus 4x4 -Other Dressing abd -Fibracol Plus 4x4 1 16. LLE cluster -Ulcer Cleansing Rinsed/ Rinsed/ Irrigated with Irrigated with Saline Saline -Primary Dressing Applied Fibracol Plus Fibracol Plus 4x4 4x4,Optilok 8x12 -Other Dressing abd -Fibracol Plus 4x4 1 1 -Optilok 8x12 1 15.RLE medial -Ulcer Cleansing Rinsed/ Rinsed/ Irrigated with Irrigated with Saline Saline -Primary Dressing Applied Fibracol Plus Fibracol Plus 4x4 4x4 -Other Dressing abd abd -Fibracol Plus 4x4 1 1 bilateral -Multi-Layered Wrap Application Multi-Layer Multi-Layer Comp - Bilat ($ Comp - Bilat ($ ) ) Treatment Response Procedure Procedure Tolerated Well Tolerated Well Pain Scale: 0-10 Numeric Is Patient Pain Free? No No WC - Visit Discharge Discharge Condition Stable Stable Ambulatory Status Ambulatory, Ambulatory, Walker Walker Transportation Private Auto Private Auto Medication Reconcilliation completed & No No provided to patient/care provider Clinical Summary of Care Provided Yes Yes Notes: Pt taken over to hospital for VDU to r/o DVT . Returned to have leg wrapped after test. Additional Wound Wound debrided: right medial LE Laterality: Right Type of Debridement: Selective debridement Anesthesia Used: 4% Lidocaine Solution Depth: Down to and including healthy tissue and in the subcutaneous layer Percentage of wound debrided: 100 Instrument Used: - (gauze) Tissue Removed: Yellow slough, devitalized tissue Severity: Fat Layer Exposed Amount of bleeding with debridement: Mild Bleeding Controlled with: Compression and gauze Patient tolerated procedure: Patient tolerated procedure well Assessment/Plan Assessment/Plan (1) Ulcer of right lower extremity with fat layer exposed: CODE(S): L97.912 - Non-pressure chronic ulcer of unspecified part of right lower leg with fat layer exposed (2) Ulcer of left lower extremity with fat layer exposed: CODE(S): L97.922 - Non-pressure chronic ulcer of unspecified part of left lower leg with fat layer exposed (3) Venous insufficiency: CODE(S): I87.2 - Venous insufficiency (chronic) (peripheral) (4) Edema: CODE(S): R60.9 - Edema, unspecified QUALIFIERS: Edema type: unspecified Qualified Code(s): R60.9 - Edema, unspecified (5) History of CVA (cerebrovascular accident): CODE(S): Z86.73 - Personal history of transient ischemic attack (TIA), and cerebral infarction without residual deficits (6) Venous ulcer of left lower extremity with varicose veins: CODE(S): I83.029 - Varicose veins of left lower extremity with ulcer of unspecified site (7) Venous ulcer of both lower extremities with varicose veins: CODE(S): I83.019 - Varicose veins of right lower extremity with ulcer of unspecified site; I83.029 - Varicose veins of left lower extremity with ulcer of unspecified site (8) Venous ulcers of both lower extremities: CODE(S): I87.2 - Venous insufficiency (chronic) (peripheral) (9) Lymphedema: CODE(S): I89.0 - Lymphedema, not elsewhere classified PLAN: Plan Debridement performed today in clinic as annotated above. He was referred to the ER for evaluation for possible admission due to the worsening of his cellulitis and his edema. He may need IV diuretic treatment in order to assist in getting rid of the excess fluid in his legs. Hoping to get ID consult sooner through hospital admission. At home wound-care instructions: Apply ABD and wrap with gauze and KATE bandages. Off-loading: The patient was instructed to avoid pressure and friction on the affected areas. Reposition every 2 hours at minimum. Avoid prolonged standing and/or dangling of legs. When seated, feet should be elevated at chest level. Frequent ambulation is encouraged. Diet: Patient encouraged to increase protein intake while taking caution to avoid high carbohydrate and/or sugar intake. Labs/cultures/imaging: Culture showed Stenotrophomonas maltophilia with intermediate resistance to Levofloxacin and sensitivity to Bactrim, to which he has an allergy. and venous US ordered to rule out DVT 11/19/22 was negative for DVT. Labs showed elevated CRP and ESR normal renal function. Follow-up: Return in 1 week for wound care follow up. Return sooner or report to the emergency room should symptoms worsen, or new symptoms arise. Note: [employer] speech recognition after school tutor software was used to create portions of this document. Sound-alike and misspelled words, as well as other after school tutor errors may be contained in the documentation.
== END 2022-12-07 23:59 | disposition home or self-care (01) ==
LOC: WC 09:30
PROVIDERS: PCP Family Medicine; Visit Provider Family Medicine
DX: L97.922 Non-pressure chronic ulcer of unspecified part of left lower leg with fat layer exposed (principal); L97.912 Non-pressure chronic ulcer of unspecified part of right lower leg with fat layer exposed; R60.9 Edema, unspecified; I83.93 Asymptomatic varicose veins of bilateral lower extremities; M79.605 Pain in left leg; M79.10 Myalgia, unspecified site; I10 Essential (primary) hypertension; I87.2 Venous insufficiency (chronic) (peripheral); I89.0 Lymphedema, not elsewhere classified; Z86.73 Personal history of transient ischemic attack (TIA), and cerebral infarction without residual deficits
CPT/HCPCS: 11042; 11045; 29581; 36416; 85610; 87070; 87075; 87077; 87186; 87205; 93971; 97597; 97598; 99213; G0463

== ENCOUNTER 2022-11-26 12:02 | Emergency (ER) | payer MEDICARE, OTHER, SELFPAY ==
[2022-11-26 12:05] VITALS: BP 131/84; PULSE 85; RESP 14; TEMP 36.6; O2SAT 100; BMI 41.1
[2022-11-26 13:02] LABS: Absolute Lymphocyte Count 1.46 X10^3/uL (0.83-4.51); Absolute Neutrophil Count 4.2 X10^3/uL (2.0-7.7); Basophil# 0.06 X10^3/uL; Basophil% 0.9 % (0-1); Eosinophil# 0.25 X10^3/uL; Eosinophils% 3.7 % (0-5); Hematocrit 40.7 % (40-54); Hemoglobin 13.2 g/dL (13.0-16.5); Lymphocyte # 1.46 X10^3/ul (0.83-4.51); Lymphocyte % 21.7 % (19-41); Mean Corp Hgb Conc 32.4 g/dL (32-36); Mean Corpuscular Hgb 31.8 pg (27.0-32.0); Mean Corpuscular Volume 98.1 fL (80-94); Mean Platelet Vol. 8.8 fl (6.2-12.0); Monocyte# 0.72 X10^3/uL; Monocyte% 10.7 % (0-10); NRBC Flagged by Analyzer 0 % (0-5); Neutrophil % 62.6 % (47-70); Platelet Count 397 K/mm3 (150-450); RBC Distribution Width CV 14.1 % (11.6-14.6); RBC Distribution Width SD 50.2 fl (35.1-43.9); Red Blood Count 4.15 M/mm3 (4.6-6.2); White Blood Count 6.7 K/mm3 (4.4-11.0)
[2022-11-26 13:14] LABS: Anion Gap 6 (5-15); BUN 17 mg/dL (7-18); BUN/Creat Ratio 22.1 RATIO (10-20); Chloride 104 mmol/L (98-107); Creatinine, Serum 0.77 mg/dL (0.70-1.30); EST Glomerular Filtration Rate 108 mL/min (>60); Est Glom Filt Rate - Afr Amer 131 mL/min (>60); Estimated Creatinine Clearance 86.31 ml/min; Glucose 101 mg/dL (74-106); Sodium Level 139 mmol/L (136-145)
[2022-11-26] MEDS: Acetaminophen 325 MG Tablet 650 MG PO (13:50)
--- NOTE | 2022-11-26 13:59 | EDS_ITS ---
HPI History of Present Illness Chief Complaint: Edema Detail of Chief Complaint: Bilateral lymphedema with venous stasis dermatitis and skin breakdown Informant: patient and other (Patient was sent from wound center.) Occured/Mechanism Comment: Chronic venous stasis dermatitis with skin breakdown and seepage of serous fluid. Onset/Context/Timing Context: Sudden Onset Timing: Continuous Location: Left lower extremity, leg Maximum Severity: Mild Worsened by: Skin breakdown Relieved by: Nothing Associated Symptoms Associated Symptoms: Negative for Parasthesia, Weakness or Loss of Funtion Narrative Narrative: Patient is a 67-year-old male with history of venous stasis dermatitis and skin ulceration without evidence of infection. Patient did have a culture of the ski n 2 weeks ago which grew multiple organism. Patient denies fever, chills night sweats. Patient denies shortness of breath or chest pain. Patient had an outpatient venous duplex study that was negative. Patient was sent from the wound center for treatment. Patient denies GI, or neurologic symptoms. Tetanus Immunization: 5-10 years [facility] Medical History Alcohol use History of edema History of pain when walking History of stress test Hypertension Lupus Non-smoker Pulmonary embolism Seizures Stroke/cerebrovascular accident Uses wheelchair Wears glasses Home Medications lisinopril 5 mg tablet 10 mg PO BID blood pressure 08/27/15 [History Last Taken 02/14/19 07:30] omega-3 fatty acids 500 mg capsule (Fish Oil) 1,000 mg PO DAILY supplement 08/27/15 [History Last Taken 07/01/22] Clonidine Hcl 1 tab PO BID Blood pressure\ 02/07/19 [History Last Taken 02/14/19 07:30] baclofen 10 mg tablet 10 mg PO .QID PRN Muscle Spasm 04/14/22 [History Last Taken Unknown] methadone 10 mg tablet 10 mg PO Q12H 04/14/22 [History Last Taken Unknown] niacin 50 mg tablet 25 mg PO DAILY 04/14/22 [History Last Taken Unknown] phenytoin sodium extended 100 mg capsule (Dilantin Extended) 200 mg PO DAILY 04/14/22 [History Last Taken 07/07/22 06:15] pregabalin 75 mg capsule (Lyrica) 75 mg PO TID 04/14/22 [History Last Taken Unknown] turmeric root extract 500 mg capsule 100 mg PO BID supplement 04/14/22 [History Last Taken 07/02/22] warfarin 4 mg tablet (Jantoven) 5 mg PO MOWEFR Blood thinner 04/14/22 [History Last Taken 07/01/22] warfarin 5 mg tablet (Jantoven) 4 mg PO SUTUTHSA blood thinner 04/14/22 [History Last Taken 07/01/22] coenzyme Q10 100 mg capsule (CoQ-10) 100 mg PO QODAY 07/02/22 [History Last Taken Unknown] ergocalciferol (vitamin D2) 1,250 mcg (50,000 unit) capsule (Vitamin D2) 1,250 mcg PO WE 07/02/22 [History Last Taken Unknown] phenytoin sodium extended 100 mg capsule (Dilantin Extended) 100 mg PO QHS 07/02/22 [History Last Taken Unknown] furosemide 20 mg tablet (Lasix) 20 mg PO LUNCH 07/05/22 [History Last Taken Unknown] furosemide 40 mg tablet (Lasix) 40 mg PO DAILY 07/05/22 [History Last Taken Unknown] Allergy/AdvReac Type Severity Reaction Status Date / Time duloxetine [From Cymbalta] Allergy Rash Verified 11/26/22 12:05 sulfamethoxazole Allergy Rash Verified 11/26/22 12:05 [From Bactrim] trimethoprim [From Bactrim] Allergy Rash Verified 11/26/22 12:05 ciprofloxacin [From Cipro] AdvReac PAIN IN Verified 11/26/22 12:05 FEET ciprofloxacin HCl AdvReac Rash Verified 11/26/22 12:05 [From Cipro] citalopram AdvReac SUICIDAL Verified 11/26/22 12:05 THOUGHTS gabapentin [From Neurontin] AdvReac EFFECTED Verified 11/26/22 12:05 VISION AND HEARING hydrochlorothiazide AdvReac DIZZINESS Verified 11/26/22 12:05 levetiracetam [From Keppra] AdvReac Other Verified 11/26/22 12:05 [id number] Reductase AdvReac Other Verified 11/26/22 12:05 Inhibitor tramadol AdvReac Other Verified 11/26/22 12:05 Family History Father Colon cancer Hypertension Gastric ulcer Mother Heart disease Brother Diabetes Surgical History History of embolic filter insertion Hx of colonoscopy Social History (Updated 11/26/22 @ 14:[address] Ramos Stewart MD) household members: none Smoking Status: Never smoker alcohol intake: never substance use type: does not use ROS ROS ED Constitutional Constitutional ED: Denies chills, fever(s), subjective, sweats or weight loss Eyes Eyes: Denies blurry vision, change in vision or diplopia ENT ENT ED: Denies ear pain, rhinorrhea or sore throat Cardiovascular Cardiovascular: Denies chest pain, orthopnea, palpitations, paroxysmal nocturnal dyspnea or racing heartbeat Respiratory/Chest Respiratory/Chest: Denies cough, dyspnea, dyspnea on exertion, orthopnea or paroxysmal nocturnal dyspnea Gastrointestinal Gastrointestinal: Denies abdominal pain, nausea or vomiting Genitourinary Genitourinary ED: Denies dysuria, hematuria or urinary frequency Musculoskeletal Musculoskeletal: Denies arthralgias, back pain, myalgias or neck pain Integumentary Reports rash; Denies abscess or Abrasions Neurologic Neurologic: Denies headache(s), paresthesias or weakness Psychiatric Psychiatric: Reports anxiety and depression Hematologic/Lymphatic Hematologic/Lymphatic: Denies easy bleeding or easy bruising EXAM Physical Exam Const Vital Signs: 11/26/22 12:05 11/26/22 12:07 Temperature 97.8 F Temperature Source Temporal Pulse Rate 85 Respiratory Rate 14 Respiratory Effort Normal Blood Pressure 131/84 H Blood Pressure Mean 99 Pulse Ox 100 Oxygen Delivery Method Room Air Positive well nourished, well developed and obese General Appearance ED: well developed and NAD Nutritional Appearance: obese HEENT Reports moist mucous membranes HEENT Narrative: Ears normal. Nares patent. Mucosa moist. Teeth normal. normocephalic and atraumatic Eyes PERRL Eyes Narrative: Extraocular muscles are intact. Sclera is anicteric. Conjunctive are is pink. Neck full ROM and supple Neck Narrative: There is no cervical lymph apathy. Chest Wall inspection of chest normal Resp normal respiratory effort, no retractions and clear to auscultation bilaterally Cardio regular rate, regular rhythm, S1 normal heart sound, S2 normal heart sound and no murmurs GI non-tender, non-distended and no masses Inspection: abdominal distention Palpation: soft Back/Spine Cervical Spine: Negative for cervical spine tenderness Thoracic Spine / Upper Back: Negative for thoracic spinal tenderness Lumbar Spine / Lower Back: Negative for lumbar spinal tenderness Extremity Negative for normal to inspection Extremity Narrative: Venous stasis dermatitis both lower extremities. Patient has breakdown of skin left leg which is weeping serous fluid. The leg appears inflamed. There is no warmth, induration, lymphangitis. There is no appreciable popliteal or inguinal lymphadenopathy Neuro oriented x3, CN's II-XII intact bilaterally, moves all extremities and no sensory deficits noted Sensorium / Orientation: alert Motor Exam: strength 5/5 throughout Plantar Reflex: Downgoing: bilateral Psych Psych Narrative: Depressed Skin Skin Narrative: There is breakdown of skin. There is serous drainage. There is no odor to the drainage. There is no color to the drainage. MDM MDM MDM Narrative Medical decision making narrative: Patient was sent to the ER. Blood work was obtained Outside records were reviewed and venous duplex studies was reviewed there is no concern for infection or DVT Lab Data Attestation: I reviewed the patient's lab results. Lab results narrative: CBC and differential unremarkable. Basic metabolic panel is unremarkable. Since patient's labs are normal there is no evidence infection will discharge to home for him to be cared for by the wound center. This is a chronic issue that does not require hospitalization Labs: Laboratory Results - last 24 hr 11/26/22 11/26/22 12:40 12:40 WBC 6.7 RBC 4.15 L Hgb 13.2 Hct 40.7 MCV 98.1 H MCH 31.8 MCHC 32.4 RDW Std Deviation 50.2 H RDW Coeff of [place] 14.1 Plt Count 397 MPV 8.8 Immature Gran % (Auto) 0.400 Neut % (Auto) 62.6 Lymph % (Auto) 21.7 [place] % (Auto) 10.7 H Eos % (Auto) 3.7 Baso % (Auto) 0.9 Absolute Neuts (auto) 4.2 Absolute Lymphs (auto) 1.46 Nucleated RBC % 0 Sodium 139 Potassium 4.0 Chloride 104 Carbon Dioxide 29.0 Anion Gap 6 BUN 17 Creatinine 0.77 Estim Creat Clear Calc 86.31 Est GFR (MDRD) Af Amer 131 Est GFR (MDRD) Non-Af 108 BUN/Creatinine Ratio 22.1 H Glucose 101 Calcium 9.0 Discharge Plan Triage Chief Complaint: Edema ED Provider: Stewart,Ramos Dx/Rx/DC Orders Clinical Impression: Chronic venous stasis dermatitis of both lower extremities, Chronic anticoagulation, Hyperlipidemia, Hypertension, Venous stasis ulcer of left lower extremity, Morbid obesity Prescriptions: No Action phenytoin sodium extended [Dilantin Extended] 100 mg capsule 200 mg PO DAILY niacin 50 mg tablet 25 mg PO DAILY lisinopril 5 MG tablet 10 mg PO BID Label Comments: blood pressure Fish Oil 500 MG capsule 1,000 mg PO DAILY warfarin [Jantoven] 4 mg tablet 5 mg PO MOWEFR warfarin [Jantoven] 5 mg tablet 4 mg PO SUTUTH turmeric root extract 500 mg capsule 100 mg PO BID Clonidine Hcl 0.1 MG tablet 1 tab PO BID baclofen 10 mg tablet 10 mg PO .QID PRN (Reason: Muscle Spasm) methadone 10 mg tablet 10 mg PO Q12H pregabalin [Lyrica] 75 mg capsule 75 mg PO TID phenytoin sodium extended [Dilantin Extended] 100 mg Capsule 100 mg PO QHS ergocalciferol (vitamin D2) [Vitamin D2] 1,250 mcg (50,000 unit) Capsule 1,250 mcg PO WE coenzyme Q10 [CoQ-10] 100 mg Capsule 100 mg PO QODAY furosemide [Lasix] 40 mg Tablet 40 mg PO DAILY furosemide [Lasix] 20 mg Tablet 20 mg PO LUNCH Primary Care Provider: Patricia Garcia Referrals: Patricia Garcia DO [Primary Care Provider] - 3-5 Days Disposition Disposition: Home, Self Care
[2022-11-26 14:28] VITALS: BP 93/52; PULSE 90; RESP 14; O2SAT 96
[2022-11-26 14:34] VITALS: BP 111/64; PULSE 91; RESP 14; O2SAT 96
== END 2022-11-26 14:44 | disposition home or self-care (01) ==
PROVIDERS: Emergency Provider Emergency Medicine; PCP Family Medicine; Visit Provider Emergency Medicine
DX: I87.313 Chronic venous hypertension (idiopathic) with ulcer of bilateral lower extremity (principal); L97.912 Non-pressure chronic ulcer of unspecified part of right lower leg with fat layer exposed; L97.922 Non-pressure chronic ulcer of unspecified part of left lower leg with fat layer exposed; E66.01 Morbid (severe) obesity due to excess calories; I87.2 Venous insufficiency (chronic) (peripheral); R60.9 Edema, unspecified; Z79.01 Long term (current) use of anticoagulants; I89.0 Lymphedema, not elsewhere classified; E78.5 Hyperlipidemia, unspecified; Z86.73 Personal history of transient ischemic attack (TIA), and cerebral infarction without residual deficits; Z86.711 Personal history of pulmonary embolism
CPT/HCPCS: 11042; 11045; 80048; 85025; 99284

== ENCOUNTER → 2022-11-29 | Outpatient (CLI) | payer MEDICARE, OTHER, SELFPAY ==
[2022-11-29 10:36] LABS: Absolute Neutrophil Count 4.7 X10^3/uL (2.0-7.7); Basophil# 0.04 X10^3/uL; Basophil% 0.6 % (0-1); Eosinophil# 0.23 X10^3/uL; Eosinophils% 3.2 % (0-5); Hematocrit 39.4 % (40-54); Hemoglobin 12.7 g/dL (13.0-16.5); Lymphocyte % 18.1 % (19-41); Mean Corp Hgb Conc 32.2 g/dL (32-36); Mean Corpuscular Hgb 32.5 pg (27.0-32.0); Mean Corpuscular Volume 100.8 fL (80-94); Mean Platelet Vol. 8.9 fl (6.2-12.0); Monocyte# 0.91 X10^3/uL; Monocyte% 12.6 % (0-10); NRBC Flagged by Analyzer 0 % (0-5); Neutrophil # 4.69 X10^3/uL (2.7-7.7); Neutrophil % 65.1 % (47-70); Platelet Count 402 K/mm3 (150-450); RBC Distribution Width CV 14.3 % (11.6-14.6); RBC Distribution Width SD 53.4 fl (35.1-43.9); Red Blood Count 3.91 M/mm3 (4.6-6.2); White Blood Count 7.2 K/mm3 (4.4-11.0)
[2022-11-29 10:51] LABS: ALB/GLOB Ratio 0.7 RATIO (0.9-2.4); AST(SGOT) 13 U/L (15-37); Alanine Aminotransfer ALT/SGPT 16 U/L (16-61); Albumin, Serum 3.1 g/dL (3.2-5.0); Alkaline Phosphatase 72 U/L (45-117); Anion Gap 8 (5-15); BUN 17 mg/dL (7-18); BUN/Creat Ratio 19.8 RATIO (10-20); Calcium,Total 8.7 mg/dL (8.5-10.1); Chloride 99 mmol/L (98-107); Creatinine, Serum 0.86 mg/dL (0.70-1.30); EST Glomerular Filtration Rate 95 mL/min (>60); Est Glom Filt Rate - Afr Amer 115 mL/min (>60); Globulin 4.2 g/dL (2.2-4.2); Glucose 79 mg/dL (74-106); Potassium 3.8 mmol/L (3.5-5.1); Protein, Total 7.3 g/dL (6.4-8.2); Sodium Level 135 mmol/L (136-145)
== END | disposition home or self-care (01) ==
LOC: LAB 09:22
PROVIDERS: PCP Family Medicine; Visit Provider Family Medicine
DX: L03.90 Cellulitis, unspecified (principal); Z51.81 Encounter for therapeutic drug level monitoring
CPT/HCPCS: 36415; 80053; 85025; 86140

== ENCOUNTER 2022-11-30 08:00 | Inpatient (IN) | payer MEDICARE, OTHER, SELFPAY ==
[2022-11-30 08:02] VITALS: BP 119/78; PULSE 91; RESP 16; TEMP 35.9; O2SAT 98; BMI 42.1
--- NOTE | 2022-11-30 08:11 | CT_ITS ---
STUDY: CT BRAIN WITHOUT CONTRAST REASON FOR EXAM: Male, 67 years old. trauma-FALL RADIATION DOSAGE (If Supplied By Facility): CTDIvol = ( 44.99 ) mGy, DLP = ( 829.85 ) mGycm TECHNIQUE: Transaxial CT imaging of the brain was performed without administration of intravenous contrast material. Individualized dose optimization techniques were used for this CT. COMPARISON: Comparison is made with prior CT scan of the brain dated 03/20/2017 FINDINGS: Normal soft tissue structures. Normal calvarium. There is mild cerebral atrophy with widening of the extra-axial spaces and ventricular dilatation. Normal white matter tracts of the cerebral hemispheres. Old lacunar infarct of the right thalamus. Normal brainstem. Normal cerebellum. There is no intracranial hemorrhage. There are no findings of an acute ischemic infarction. Atherosclerotic plaque formation of the vertebral arteries and cavernous portions of the internal carotid arteries bilaterally. Normal visualized paranasal sinuses. CT/Brain/Head without Contrast IMPRESSION: Chronic involutional changes of the brain. Old lacunar infarct of the right thalamus. Electronically Signed: Timo Durham MD at 9:10 EST ,
--- NOTE | 2022-11-30 08:11 | CT_ITS ---
STUDY: CT CERVICAL SPINE WITHOUT CONTRAST REASON FOR EXAM: Male, 67 years old. Trauma-FALL RADIATION DOSAGE (If Supplied By Facility): CTDIvol = ( 24.34 ) mGy, DLP = ( 536.50 ) mGycm TECHNIQUE: High resolution transaxial imaging was performed without contrast material. Sagittal and coronal images were reconstructed. Individualized dose optimization techniques were used for this CT. COMPARISON: None FINDINGS: Normal craniovertebral junction. There are degenerative changes of the anterior atlantoaxial articulation. Normal odontoid process. Normal cervical lordosis. Normal vertebral bodies and posterior osseous elements. C2-3: Facet joint osteoarthritis and hypertrophy worse on the left side. No significant stenosis seen. C3-4: Mild degree of facet joint osteoarthritis and hypertrophy. No significant stenosis seen. C4-5: Facet joint osteoarthritis and hypertrophy. No significant stenosis seen. C5-6: Marked degree of disc space narrowing. Spondylosis. Uncovertebral arthrosis. Mild degree of bilateral neural foraminal stenosis slightly worse on the right side. C6-7: Moderate degree of disc space narrowing. Spondylosis. Facet joint osteoarthritis. Uncovertebral arthrosis. Moderate degree of bilateral neural foraminal stenosis. C7-T1: Normal endplates. Normal disc height and morphology. Normal central canal and intervertebral neuroforamina. Atherosclerotic plaque formation at the carotid bifurcation bilaterally. CT/Spine Cervical without Contras IMPRESSION: Multilevel degenerative changes, as described above. Electronically Signed: Timo Durham MD at 9:04 EST ,
--- NOTE | 2022-11-30 08:13 | EDS_ITS ---
HPI History of Present Illness Chief Complaint: Fall Informant: patient Onset/Context/Timing Onset: Today Narrative Narrative: Patient presents via EMS after a fall at home. He currently has cellulitis of his left lower extremity with oozing. He states when he went to get up this morning he did not realize that there was a puddle of fluid on the floor from his leg oozing, he slipped on this and fell forward striking his face. He did not lose consciousness. He is on Coumadin. [facility] Medical History Alcohol use History of edema History of pain when walking History of stress test Hypertension Lupus Non-smoker Pulmonary embolism Seizures Stroke/cerebrovascular accident Uses wheelchair Wears glasses Home Medications lisinopril 5 mg tablet 10 mg PO BID blood pressure 08/27/15 [History Last Taken 02/14/19 07:30] omega-3 fatty acids 500 mg capsule (Fish Oil) 1,000 mg PO DAILY supplement 08/27/15 [History Last Taken 07/01/22] Clonidine Hcl 1 tab PO BID Blood pressure\ 02/07/19 [History Last Taken 02/14/19 07:30] baclofen 10 mg tablet 10 mg PO .QID PRN Muscle Spasm 04/14/22 [History Last Taken Unknown] methadone 10 mg tablet 10 mg PO Q12H 04/14/22 [History Last Taken Unknown] niacin 50 mg tablet 25 mg PO DAILY 04/14/22 [History Last Taken Unknown] phenytoin sodium extended 100 mg capsule (Dilantin Extended) 200 mg PO DAILY 04/14/22 [History Last Taken 07/07/22 06:15] pregabalin 75 mg capsule (Lyrica) 75 mg PO TID 04/14/22 [History Last Taken Unknown] turmeric root extract 500 mg capsule 100 mg PO BID supplement 04/14/22 [History Last Taken 07/02/22] warfarin 4 mg tablet (Jantoven) 5 mg PO MOWEFR Blood thinner 04/14/22 [History Last Taken 07/01/22] warfarin 5 mg tablet (Jantoven) 4 mg PO SUTUTHSA blood thinner 04/14/22 [History Last Taken 07/01/22] coenzyme Q10 100 mg capsule (CoQ-10) 100 mg PO QODAY 07/02/22 [History Last Taken Unknown] ergocalciferol (vitamin D2) 1,250 mcg (50,000 unit) capsule (Vitamin D2) 1,250 mcg PO WE 07/02/22 [History Last Taken Unknown] phenytoin sodium extended 100 mg capsule (Dilantin Extended) 100 mg PO QHS 07/02/22 [History Last Taken Unknown] furosemide 20 mg tablet (Lasix) 20 mg PO LUNCH 07/05/22 [History Last Taken Unknown] furosemide 40 mg tablet (Lasix) 40 mg PO DAILY 07/05/22 [History Last Taken Unknown] Allergy/AdvReac Type Severity Reaction Status Date / Time duloxetine [From Cymbalta] Allergy Rash Verified 11/30/22 08:09 sulfamethoxazole Allergy Rash Verified 11/30/22 08:09 [From Bactrim] trimethoprim [From Bactrim] Allergy Rash Verified 11/30/22 08:09 ciprofloxacin [From Cipro] AdvReac PAIN IN Verified 11/30/22 08:09 FEET ciprofloxacin HCl AdvReac Rash Verified 11/30/22 08:09 [From Cipro] citalopram AdvReac SUICIDAL Verified 11/30/22 08:09 THOUGHTS gabapentin [From Neurontin] AdvReac EFFECTED Verified 11/30/22 08:09 VISION AND HEARING hydrochlorothiazide AdvReac DIZZINESS Verified 11/30/22 08:09 levetiracetam [From Keppra] AdvReac Other Verified 11/30/22 08:09 [id number] Reductase AdvReac Other Verified 11/30/22 08:09 Inhibitor tramadol AdvReac Other Verified 11/30/22 08:09 Family History Father Colon cancer Hypertension Gastric ulcer Mother Heart disease Brother Diabetes Surgical History History of embolic filter insertion Hx of colonoscopy Social History household members: none Smoking Status: Never smoker alcohol intake: never substance use type: does not use ROS ROS ED Constitutional Constitutional ED: Denies chills or fever(s) Eyes Eyes: Denies change in vision or discharge from eye(s) ENT ENT ED: Reports other Details: Right forehead laceration and edema. ; Denies discharge from eye(s), rhinorrhea or sore throat Cardiovascular Cardiovascular: Denies chest pain or palpitations Respiratory/Chest Respiratory/Chest: Denies cough or dyspnea Gastrointestinal Gastrointestinal: Denies abdominal pain, nausea or vomiting Genitourinary Genitourinary ED: Denies difficulty urinating or dysuria Musculoskeletal Musculoskeletal: Denies back pain or extremity pain Integumentary Reports other Details: Cellulitis left lower extremity ; Denies Abrasions or rash Neurologic Neurologic: Denies headache(s) or weakness Psychiatric Psychiatric: Denies anxiety or depression Allergic/Immunologic Allergic/Immunologic ED: Denies lip swelling or urticaria EXAM Physical Exam Const Vital Signs: 11/30/22 08:02 11/30/22 08:11 11/30/22 13:19 Temperature 96.6 F L 97.9 F Temperature Source Temporal Temporal Pulse Rate 91 110 H Respiratory Rate 16 18 Respiratory Effort Normal Respiratory Depth Normal Respiratory Pattern Normal Blood Pressure 119/78 127/72 H Blood Pressure Mean 91 90 Pulse Ox 98 98 Oxygen Delivery Method Room Air Room Air 11/30/22 13:19 Temperature Temperature Source Pulse Rate 110 H Respiratory Rate 20 H Respiratory Effort Respiratory Depth Respiratory Pattern Blood Pressure 127/72 H Blood Pressure Mean 90 Pulse Ox 97 Oxygen Delivery Method Room Air Positive well nourished and well developed General Appearance ED: well developed HEENT Reports moist mucous membranes HEENT Narrative: 2 cm laceration just superior to the right eyebrow. Mild surrounding edema. No significant active bleeding at this time. Extraocular movements are fully intact. Eyes PERRL and EOMs intact bilaterally Neck no lymphadenopathy Chest Wall inspection of chest normal and palpation of chest normal Resp normal respiratory effort and clear to auscultation bilaterally Cardio regular rate and regular rhythm GI non-tender Auscultation: normoactive bowel sounds Palpation: soft Extremity Extremity Narrative: Chronic venous skin changes to the left lower extremity with oozing. Neuro oriented x3 Neuro Narrative: Chronic left arm weakness from prior stroke Psych mental status grossly normal Skin Skin Narrative: As noted above. MDM MDM MDM Narrative Medical decision making narrative: Lab work obtained to evaluate for anemia, electrolyte derangement, INR value. Patient sent for CT scan of the head and C-spine given his fall with laceration and on anticoagulant. Lab Data Attestation: I reviewed the patient's lab results. Labs: Laboratory Results - last 24 hr 11/30/22 11/30/22 11/30/22 08:25 08:25 08:25 WBC 6.6 RBC 4.26 L Hgb 13.3 Hct 41.5 MCV 97.4 H MCH 31.2 MCHC 32.0 RDW Std Deviation 50.6 H RDW Coeff of [place] 14.2 Plt Count 417 MPV 8.9 Immature Gran % (Auto) 0.500 Neut % (Auto) 67.8 Lymph % (Auto) 17.1 L Wolfe % (Auto) 12.0 H Eos % (Auto) 1.8 Baso % (Auto) 0.8 Absolute Neuts (auto) 4.5 Absolute Lymphs (auto) 1.13 Nucleated RBC % 0 PT 25.2 H INR 2.3 Sodium 136 Potassium 4.2 Chloride 101 Carbon Dioxide 29.0 Anion Gap 6 BUN 17 Creatinine 0.87 Estim Creat Clear Calc 76.39 Est GFR (MDRD) Af Amer 113 Est GFR (MDRD) Non-Af 93 BUN/Creatinine Ratio 19.5 Glucose 120 H Calcium 9.3 Radiography Diagnostic Testing: Clinical Impression(s) from Imaging Studies Brain CT 11/30/22 08:11 IMPRESSION: Chronic involutional changes of the brain. Old lacunar infarct of the right thalamus. Electronically Signed: Timo Durham MD at 9:10 EST , Cervical Spine CT 11/30/22 08:11 IMPRESSION: Multilevel degenerative changes, as described above. Electronically Signed: Timo Durham MD at 9:04 EST , Shoulder X-Ray 11/30/22 10:02 IMPRESSION: Degenerative changes. No acute abnormality is seen. Electronically Signed: Timo Durham MD at 11:17 EST , Abdomen/Pelvis CT 11/30/22 10:03 IMPRESSION: Mildly distended gallbladder with multiple gallstones. A filter is seen within the inferior vena cava with the evidence of multiple varicosities in the subcutaneous tissues overlying the right lower abdominal and pelvic wall as well as in the abdomen and pelvis. There has been essentially no change since prior study. Prostatic enlargement with indentation of the bladder base. Electronically Signed: Timo Durham MD at 11:17 EST , Treatment and Re-Evaluation Narrative: CBC and chemistry studies are unremarkable. INR is therapeutic at 2.3. CT scan of the head shows chronic changes with no acute findings. CT of the C-spine shows degenerative changes. Patient's right forehead laceration was anesthetized with 2 cc of 2% lidocaine. Wound was cleansed. 2 simple interpreted sutures of 5-0 nylon are placed with good approximation. Patient's tetanus was updated. While lying in the bed patient started to develop increased pain from his fall including pain around the left flank area as well as his right shoulder. Right shoulder x-rays are obtained and per my interpretation reveal chronic changes with no acute fracture. Radiology interpretation is reviewed. CT of the flank reveals a mildly distended gallbladder with multiple gallstones and a an IVC filter. There is been no change when compared to prior study. Patient is on methadone chronically. He was given a dose of oxycodone here which he states he will take for breakthrough pain. At this time patient reports he is still having too much pain to be able to adequately care for himself. [facility] in [facility] of [facility] independent living apartments. I will speak with hospitalist regarding admission for pain control and physical therapy. Patient is open to the possibility that he may need to go to the skilled nursing portion for physical therapy for short-term to get his strength build up. His leg wounds appear chronic with venous skin changes. I do not appreciate any sign of secondary infection at this time. Dressing will be applied once evaluated by hospitalist. Discharge Plan Dx/Rx/DC Orders Clinical Impression: Fall, Laceration of forehead, Contusion of right shoulder, Abdominal contusion, Leg wound, left Disposition Disposition: Acute Care Hospital [facility]
[2022-11-30] MEDS: Diphth,Pertuss(Acell),Tet Vac 0.5 ML Vial IM (08:30)
[2022-11-30] MEDS: Lidocaine 1% (20 ml mdv) 20 ML Vial INFILT (08:30)
[2022-11-30 08:51] LABS: Absolute Lymphocyte Count 1.13 X10^3/uL (0.83-4.51); Absolute Neutrophil Count 4.5 X10^3/uL (2.0-7.7); Basophil# 0.05 X10^3/uL; Basophil% 0.8 % (0-1); Eosinophil# 0.12 X10^3/uL; Eosinophils% 1.8 % (0-5); Hematocrit 41.5 % (40-54); Hemoglobin 13.3 g/dL (13.0-16.5); Lymphocyte # 1.13 X10^3/ul (0.83-4.51); Lymphocyte % 17.1 % (19-41); Mean Corpuscular Hgb 31.2 pg (27.0-32.0); Mean Corpuscular Volume 97.4 fL (80-94); Mean Platelet Vol. 8.9 fl (6.2-12.0); Monocyte# 0.79 X10^3/uL; NRBC Flagged by Analyzer 0 % (0-5); Neutrophil # 4.49 X10^3/uL (2.7-7.7); Neutrophil % 67.8 % (47-70); Platelet Count 417 K/mm3 (150-450); RBC Distribution Width CV 14.2 % (11.6-14.6); RBC Distribution Width SD 50.6 fl (35.1-43.9); Red Blood Count 4.26 M/mm3 (4.6-6.2); White Blood Count 6.6 K/mm3 (4.4-11.0)
[2022-11-30 08:58] LABS: International Normalized Ratio 2.3; Prothrombin Time (Protime)PT. 25.2 SECONDS (11.7-14.9)
[2022-11-30 09:07] LABS: Anion Gap 6 (5-15); BUN 17 mg/dL (7-18); BUN/Creat Ratio 19.5 RATIO (10-20); Calcium,Total 9.3 mg/dL (8.5-10.1); Chloride 101 mmol/L (98-107); Creatinine, Serum 0.87 mg/dL (0.70-1.30); EST Glomerular Filtration Rate 93 mL/min (>60); Est Glom Filt Rate - Afr Amer 113 mL/min (>60); Estimated Creatinine Clearance 76.39 ml/min; Glucose 120 mg/dL (74-106); Potassium 4.2 mmol/L (3.5-5.1); Sodium Level 136 mmol/L (136-145)
--- NOTE | 2022-11-30 10:02 | RAD_ITS ---
STUDY: X-RAY - RIGHT SHOULDER REASON FOR EXAM: Male, 67 years old. Pain, fall TECHNIQUE: 3 view(s) of the shoulder. COMPARISON: None. FINDINGS: There is moderate degenerative arthrosis of the glenohumeral articulation. There is degenerative arthrosis of the acromioclavicular joint without inferior osseous spur formation. Normal acromion. Decreased distance between the humeral head and acromion suggestive of rotator cuff pathology. Normal humeral head and visualized proximal humerus. The soft tissue structures are unremarkable. Normal visualized pulmonary apex. RAD/Shoulder min 2 Views IMPRESSION: Degenerative changes. No acute abnormality is seen. Electronically Signed: Timo Durham MD at 11:17 EST ,
--- NOTE | 2022-11-30 10:03 | CT_ITS ---
STUDY: CT ABDOMEN AND PELVIS WITHOUT CONTRAST REASON FOR EXAM: Male, 67 years old. Flank pain, fall RADIATION DOSAGE (If Supplied By Facility): CTDIvol = ( 24.02 ) mGy, DLP = ( 1380.38 ) mGycm TECHNIQUE: Transaxial images were obtained from the dome of the diaphragm to the symphysis pubis without oral contrast, and without intravenous contrast. Sagittal and coronal images were reconstructed. Individualized dose optimization techniques were used for this CT. COMPARISON: Comparison is made with prior study 09/03/2015. FINDINGS: The visualized lung bases are unremarkable. Coronary artery calcification. Normal liver. Distended gallbladder. Gallstones are seen along the dependent portion of the gallbladder lumen. Normal spleen. Normal pancreas. Normal bilateral adrenal glands. Normal right kidney. Normal left kidney. Normal visualized stomach. Normal small intestine. Normal colon. The appendix is visualized and appears normal. Normal abdominal aorta. There is an IVC filter in place. Normal retroperitoneum. There are multiple venous varicosities seen in the subcutaneous tissues overlying the right lower abdomen and pelvis. These extend into the right lower quadrant as well as in the pelvis. This may be related to the placement of the IVC filter. There is been essentially no change as compared to prior study. Mild degree of diffuse bladder wall thickening. The prostate is enlarged. It measures 5.1 cm x 4.1 cm. This causes indentation of the bladder base. Normal abdominal wall. There are diffuse degenerative changes of the visualized lumbar spine. CT/Abdomen/Pelvis without Cont IMPRESSION: Mildly distended gallbladder with multiple gallstones. A filter is seen within the inferior vena cava with the evidence of multiple varicosities in the subcutaneous tissues overlying the right lower abdominal and pelvic wall as well as in the abdomen and pelvis. There has been essentially no change since prior study. Prostatic enlargement with indentation of the bladder base. Electronically Signed: Timo Durham MD at 11:17 EST ,
[2022-11-30] MEDS: oxyCODONE 5 MG Tablet PO ×2 (10:44→18:37)
--- NOTE | 2022-11-30 13:17 | NURSING ---
MED SURG OBS KIMBER FALL, ABD CONTUSION, FOREHEAD LAC, CHRONIC LEG WOUND
[2022-11-30 13:19] VITALS: BP 127/72; PULSE 110; RESP 18; RESP 20; TEMP 36.6; O2SAT 97; O2SAT 98
--- NOTE | 2022-11-30 13:26 | HP.PCM.HOS_ITS ---
HPI - General General Date of Admission: 11/30/22 Date of Service: 11/30/22 Chief Complaint: Bilateral leg cellulitis, fall and laceration of head HPI Narrative ESTEBAN URBINA, is a 67 M with history of stroke in 2008 with left-sided weakness on wheeled walker came to ED after he slipped and fall on the drainage of his leg. He has copious large drainage from both legs, left more than right with superficial ulceration and excoriation. Patient fell forward, striking his face and has small laceration wound on the right supraorbital margin which was stitched in the ED. No loss of consciousness, no dizziness/near syncope. He said he has drainage/seepage from laying which is started on 2021 progressively worsening since then. Started with the left leg and then progressed. He is see and Ashely Lopes in wound clinic last visit on 11/26/2022 from where he was referred to ED. Diagnosis was bilateral lymphedema with venous stasis dermatitis and ulceration. Patient was sent home after blood work. Patient also lives alone and has decreased ADL and mobility. Patient denies fever or chill. No headache. Patient has severe pain over both lower legs left more than right after bandages sticks to the wound. Patient also has restricted mobility of left shoulder and elbow after stroke but got worse after fall today. Patient had CT brain which showed old left infarct of right thalamus, CT C-spine reported multilevel degenerative changes. Shoulder x-ray degenerative changes no acute abnormality. Abdominal pelvis CT shows mildly distended GB with multiple gallstones. IVC filter. Prostatic enlargement with indentation of bladder base. Patient on warfarin. INR therapeutic [facility] Medical History Alcohol use History of edema History of pain when walking History of stress test Hypertension Lupus Non-smoker Pulmonary embolism Seizures Stroke/cerebrovascular accident Uses wheelchair Wears glasses Home Medications lisinopril 5 mg tablet 10 mg PO BID blood pressure 08/27/15 [History Last Taken 02/14/19 07:30] omega-3 fatty acids 500 mg capsule (Fish Oil) 1,000 mg PO DAILY supplement 08/27/15 [History Last Taken 07/01/22] Clonidine Hcl 1 tab PO BID Blood pressure\ 02/07/19 [History Last Taken 02/14/19 07:30] baclofen 10 mg tablet 10 mg PO .QID PRN Muscle Spasm 04/14/22 [History Last Taken Unknown] methadone 10 mg tablet 10 mg PO Q12H 04/14/22 [History Last Taken Unknown] niacin 50 mg tablet 25 mg PO DAILY 04/14/22 [History Last Taken Unknown] phenytoin sodium extended 100 mg capsule (Dilantin Extended) 200 mg PO DAILY 04/14/22 [History Last Taken 07/07/22 06:15] pregabalin 75 mg capsule (Lyrica) 75 mg PO TID 04/14/22 [History Last Taken Unknown] turmeric root extract 500 mg capsule 100 mg PO BID supplement 04/14/22 [History Last Taken 07/02/22] warfarin 4 mg tablet (Octtoven) 5 mg PO MOWEFR Blood thinner 04/14/22 [History Last Taken 07/01/22] warfarin 5 mg tablet (Jantoven) 4 mg PO SUTUTHSA blood thinner 04/14/22 [History Last Taken 07/01/22] coenzyme Q10 100 mg capsule (CoQ-10) 100 mg PO QODAY 07/02/22 [History Last Taken Unknown] ergocalciferol (vitamin D2) 1,250 mcg (50,000 unit) capsule (Vitamin D2) 1,250 mcg PO WE 07/02/22 [History Last Taken Unknown] phenytoin sodium extended 100 mg capsule (Dilantin Extended) 100 mg PO QHS [History Last Taken Unknown] furosemide 20 mg tablet (Lasix) 20 mg PO LUNCH 07/05/22 [History Last Taken Unknown] furosemide 40 mg tablet (Lasix) 40 mg PO DAILY 07/05/22 [History Last Taken Unk nown] Allergy/AdvReac Type Severity Reaction Status Date / Time duloxetine [From Cymbalta] Allergy Rash Verified 11/30/22 08:09 sulfamethoxazole Allergy Rash Verified 11/30/22 08:09 [From Bactrim] trimethoprim [From Bactrim] Allergy Rash Verified 11/30/22 08:09 ciprofloxacin [From Cipro] AdvReac PAIN IN Verified 11/30/22 08:09 FEET ciprofloxacin HCl AdvReac Rash Verified 11/30/22 08:09 [From Cipro] citalopram AdvReac SUICIDAL Verified 11/30/22 08:09 THOUGHTS gabapentin [From Neurontin] AdvReac EFFECTED Verified 11/30/22 08:09 VISION AND HEARING hydrochlorothiazide AdvReac DIZZINESS Verified 11/30/22 08:09 levetiracetam [From [facility]] AdvReac Other Verified 11/30/22 08:09 [id number] Reductase AdvReac Other Verified 11/30/22 08:09 Inhibitor tramadol AdvReac Other Verified 11/30/22 08:09 Family History Father Colon cancer Hypertension Gastric ulcer Mother Heart disease Brother Diabetes Surgical History History of embolic filter insertion Hx of colonoscopy Social History household members: none Smoking Status: Never smoker alcohol intake: never substance use type: does not use ROS ROS Narrative Constitutional: Reports fatigue and weakness, decreased ADL, not able to take care of himself HEENT: Reports systems reviewed and no addt'l complaints, except as documented Respiratory/Chest: Denies chest pain, shortness of breath at rest or with exertion Gastrointestinal: Denies coffee ground emesis, hematemesis or vomiting Genitourinary: Chronic increased frequency.Small bladder and BPH. Denies burning urination or new urinary tract symptoms Musculoskeletal: Left-sided weakness. Chronic pain in left upper shoulder Neurologic: Denies recent seizure-like activity. Stroke with left-sided weakness. skin: As described in HPI Endocrinology: Denies diabetes mellitus. Reports systems reviewed and no addt'l complaints, except as documented Hematologic/Lymphatic: Bilateral lower leg lymphedema, chronic. Reports systems reviewed and no addt'l complaints, except as documented Rest 14 ROS are negative except as mentioned in HPI Vital Signs Vital Signs Vital Signs: 11/30/22 08:02 11/30/22 08:11 11/30/22 13:19 Temperature 96.6 F L 97.9 F Temperature Source Temporal Temporal Pulse Rate 91 110 H Respiratory Rate 16 18 Respiratory Effort Normal Respiratory Depth Normal Respiratory Pattern Normal Blood Pressure 119/78 127/72 H Blood Pressure Mean 91 90 Pulse Ox 98 98 Oxygen Delivery Method Room Air Room Air 11/30/22 13:19 Temperature Temperature Source Pulse Rate 110 H Respiratory Rate 20 H Respiratory Effort Respiratory Depth Respiratory Pattern Blood Pressure 127/72 H Blood Pressure Mean 90 Pulse Ox 97 Oxygen Delivery Method Room Air Weight Weight: 261 lb 0.437 oz Body Mass Index (BMI) 42.1 Physical Exam Narrative Physical exam General: Alert, Oriented x3, Cooperative, morbid obesity BMI 42.1 kg/m?. HEENT: Small laceration over right eyebrow, stitched., PERRLA, EOMI, Normocephalic Oral: No oral bleed. No Gingival or Mucosal Lesions/ Ulcerations Neck: Supple, No JVD, Negative Carotid Bruits Lungs: Air entry diminished in bilateral lung bases. No crepitation/rhonchi Cardiovascular: Regular rate, Regular Rhythm, Normal S1, Normal S2, No murmurs Abdomen: Bowel Sounds Present, Soft, Non Tender, Non-Distended : No renal angle tenderness. No suprapubic tenderness. Extremities: Bilateral lower leg edema below knee level. Capillary Refill Less than 3 Seconds Skin: Bilateral lower leg superficial ulceration left worse than right. Gre enish and purulent discharge, left worse than right. Musculoskeletal: Bilateral lower leg lymphedema, decreased mobility of both lower legs and left upper extremity. Severe tenderness over both legs, left more than right. Neurological: Chronic stroke with left-sided deficit. Mobility on wheeled wa er. Psych/Mental Status: Flat affect Results Lab / Micro Data Result Diagrams: 11/30/22 08:25 11/30/22 08:25 Labs: Laboratory Results - last 24 hr 11/30/22 08:25: WBC 6.6, RBC 4.26 L, Hgb 13.3, Hct 41.5, MCV 97.4 H, MCH 31.2, MCHC 32.0, RDW Std Deviation 50.6 H, RDW Coeff of [place] 14.2, Plt Count 417, MPV 8.9, Immature Gran % (Auto) 0.500, Neut % (Auto) 67.8, Lymph % (Auto) 17.1 L, [place] % (Auto) 12.0 H, Eos % (Auto) 1.8, Baso % (Auto) 0.8, Absolute Neuts (auto) 4.5, Absolute Lymphs (auto) 1.13, Nucleated RBC % 0 11/30/22 08:25: PT 25.2 H, INR 2.3 11/30/22 08:25: Sodium 136, Potassium 4.2, Chloride 101, Carbon Dioxide 29.0, Anion Gap 6, BUN 17, Creatinine 0.87, Estim Creat Clear Calc 76.39, Est GFR (MDRD) Af Amer 113, Est GFR (MDRD) Non-Af 93, BUN/Creatinine Ratio 19.5, Glucose 120 H, Calcium 9.[address] 11/30/22 08:11 IMPRESSION: Chronic involutional changes of the brain. Old lacunar infarct of the right thalamus. Electronically Signed: Timo Durham MD at 9:10 EST , Cervical Spine CT 11/30/22 08:11 IMPRESSION: Multilevel degenerative changes, as described above. Electronically Signed: Timo Durham MD at 9:04 EST Reading Location ID and State: 603 / [place] , Service support , Shoulder X-Ray 11/30/22 10:02 IMPRESSION: Degenerative changes. No acute abnormality is seen. Electronically Signed: Timo Durham MD at 11:17 EST Reading Location ID and State: 603 / [place] , Service support , Abdomen/Pelvis CT 11/30/22 10:03 IMPRESSION: Mildly distended gallbladder with multiple gallstones. A filter is seen within the inferior vena cava with the evidence of multiple varicosities in the subcutaneous tissues overlying the right lower abdominal and pelvic wall as well as in the abdomen and pelvis. There has been essentially no change since prior study. Prostatic enlargement with indentation of the bladder base. Electronically Signed: Timo Durham MD at 11:17 EST , Assessment & Plan Assessment/Plan (1) Cellulitis and abscess of leg: PLAN: Plan This 67 old gentleman is being admitted for bilateral lower extremity cellulitis complicated with greenish purulent drainage and possible superficial abscess 1. Acute on chronic bilateral lower extremity cellulitis complicated with ulceration and drainage, bilateral lower extremity venous stasis and lymphedema: Patient is being admitted for on MedSurg floor. Podiatry consult. Wound culture with MRSA and blood cultures x2. Patient started on broad-spectrum IV antibiotic vancomycin and Zosyn. Wound care nurse consult. 2. Bilateral lower extremity edema and bilateral lymphedema: Patient on oral furosemide at home probably not working. Started on IV furosemide 40 mg every 12 hourly. 2D echo ordered. Patient denies any prior history of heart disease but has restricted mobility and mild shortness of breath on exertion. BNP orde red 3. Slip and fall and small laceration of right supraorbital margin: Lacerated wound was stitched by ED physician. No loss of consciousness. Patient had CT brain which showed old left infarct of right thalamus, CT C-spine reported multilevel degenerative changes. Right Shoulder x-ray degenerative changes no acute abnormality. Abdominal pelvis CT shows mildly distended GB with multiple gallstones. IVC filter. Prostatic enlargement with indentation of bladder base. 4. History of pulmonary embolism: Patient on warfarin, continued. INR therapeutic. Patient had IVC filter as reported in his abdomen pelvis CT. Monitor INR daily. 5. Stroke in 2008 with restricted mobility: PT and OT ordered. No new finding pertaining to stroke. 6. Other multiple comorbidities include hypertension, chronic alcohol use, lupus, seizure: Currently patient blood pressure is in systolic 100s to 120s therefore will hold lisinopril clonidine. Resume as blood pressure goes high more than 130. VTE prophylaxis: On warfarin. Living will/advanced directive/end of life care: Patient does have living will or advanced directive. His daughter is power of environmental attorney for health. After discussion of benefits/risks procedures involved with full code, DNR CC arrest and DNR CC, the patient opted for DNRCC arrest with no intubation Patient doesn't want artificial life support including intubation, tube feed, ventilator and/chest compression, central venous catheter, vasopressor and DC shock if needed Total time spent in [id number] encounter in discussion of advanced directive 17 minutes. Charges/Coding Visit Charges Inpatient E&M: 96658 Init Hosp L3 Procedures Hospitalists Procedures: 61143 Advncd Care Plan 30 Min
--- NOTE | 2022-11-30 13:56 | ECHOD_ITS ---
Reason For Study: LEG SWELLING Procedure This was a 2D Doppler, Color Flow transthoracic echocardiogram. The study was technically difficult. Exam performed portable in ED. Left Ventricle Based upon the 2D echocardiographic images obtained there appears to be normal left ventricular size, wall motion, and systolic function. The estimated ejection fraction is 70 %. Diastolic function is indeterminate. Right Ventricle Normal RV size. Normal systolic function. Atria The left atrium is mildly enlarged. Normal right atrium. No doppler evidence for ASD. Mitral Valve There is no mitral annular calcification. Normal mitral valve. Trivial mitral valve insufficiency. Tricuspid Valve Normal tricuspid valve. Aortic Valve The aortic valve is not well visualized. Pulmonic Valve The pulmonic valve is not well visualized. Great Vessels The aortic root is not well visualized. Pericardium/Pleural No pericardial effusion. MMode/2D Measurements & Calculations LAV(MOD-sp4): 88.9 ml LVAd ap4: 27.4 cm2 SV(MOD-sp4): 54.4 ml LVLd ap4: 7.5 cm EDV(MOD-sp4): 82.2 ml EDV(sp4-el): 84.5 ml LVAs ap4: 14.2 cm2 LVLs ap4: 6.4 cm ESV(MOD-sp4): 27.8 ml ESV(sp4-el): 26.8 ml EF(MOD-sp4): 66.2 % EF(sp4-el): 68.3 % SV(sp4-el): 57.8 ml LA A4 area: 24.5 cm2 LA dimension(2D): 4.7 cm Time Measurements MV dec time: 0.13 sec Doppler Measurements & Calculations MV E max tyson: 65.1 cm/sec Lat Peak E' Tyson: 8.2 cm/sec Med Peak E' Tyson: 9.9 cm/sec MV A max tyson: 97.8 cm/sec E/E' lat: 7.9 E/E' med: 6.6 MV E/A: 0.67 MV V2 max: 110.7 cm/sec Ao V2 max: 166.2 cm/sec MV max P.9 mmHg MV dec slope: 531.2 cm/sec2 Ao max P.5 mmHg MV V2 mean: 69.0 cm/sec Ao V2 mean: 114.9 cm/sec MV mean P.1 mmHg Ao mean P.1 mmHg MV V2 VTI: 21.3 cm Ao V2 VTI: 30.1 cm AV (velocity ratio): 0.69 LV V1 max: 110.8 cm/sec LV V1 max P.9 mmHg LV V1 mean P.4 mmHg LV V1 mean: 69.6 cm/sec LV V1 VTI: 20.9 cm ECHO/Echo Complete Interpretation Summary The study was technically difficult. Based upon the 2D echocardiographic images obtained there appears to be normal left ventricular size, wall motion, and systolic function. The estimated ejection fraction is 70 %. The left atrium is mildly enlarged. Trivial mitral valve insufficiency. Diastolic function is indeterminate. Ordering Physician: Satya Erazo Referring Physician: Patricia Garcia Performed By: Erica Solis RCS
[2022-11-30 14:23] LABS: AST(SGOT) 9 U/L (15-37); Alanine Aminotransfer ALT/SGPT 16 U/L (16-61); Albumin, Serum 3.3 g/dL (3.2-5.0); Alkaline Phosphatase 76 U/L (45-117); Bilirubin, Direct 0.14 mg/dL (0.00-0.30); Globulin 4.5 g/dL (2.2-4.2); Protein, Total 7.8 g/dL (6.4-8.2)
[2022-11-30 14:32] LABS: Erythrocyte Sedimentation Rate 30 mm/hr (0-20)
[2022-11-30 15:21] VITALS: BMI 39.9
[2022-11-30 15:45] LABS: BNP,B-Type NATRIURETIC PEPTIDE 9.6 pg/mL (0-100)
[2022-11-30 15:54] VITALS: BP 106/91; PULSE 113; RESP 18; TEMP 37.3; O2SAT 99
--- NOTE | 2022-11-30 15:55 | RAD_ITS ---
STUDY: X-RAY - LEFT SHOULDER REASON FOR EXAM: Male, 67 years old. Left shoulder pain. Limited range of motion. TECHNIQUE: 2 view(s) of the shoulder. COMPARISON: Left shoulder, July 16, 2019. FINDINGS: Evaluation of the glenohumeral joint is limited due to internal rotation of the shoulder joint. There appears to be mild to moderate degenerative change with narrowing of the acromiohumeral space.. There is degenerative arthrosis of the acromioclavicular joint without inferior osseous spur formation. Normal acromion. There is no acute fracture, dislocation or destructive osseous pathology. There is demineralization of the humerus and visualized osseous structures. The soft tissue structures are unremarkable. Normal visualized pulmonary apex. RAD/Shoulder min 2 Views IMPRESSION: Degenerative changes of the shoulder. There is no acute fracture or dislocation. There is continued narrowing of the acromiohumeral space with the prior study. Question rotator cuff pathology. Electronically Signed: René Coleman DO at 16:11 EST ,
--- NOTE | 2022-11-30 15:59 | WOUNDNOTE ---
wound photo: left lower leg
--- NOTE | 2022-11-30 16:00 | WOUNDNOTE ---
wound photo: left lower leg
--- NOTE | 2022-11-30 16:00 | WOUNDNOTE ---
wound photo: right lower leg
--- NOTE | 2022-11-30 16:01 | WOUNDNOTE ---
wound photo: right lower leg
[2022-11-30] MEDS: 0.9% Saline Lock 10 ML Syringe IV ×2 (16:24→17:24)
[2022-11-30] MEDS: Baclofen 10 MG Tablet PO ×2 (16:40→21:44)
[2022-11-30] MEDS: Enoxaparin 40 MG/0.4 ML Syringe SC (16:48)
[2022-11-30] MEDS: Furosemide 40 MG/4 ML Vial IV (17:23)
[2022-11-30 17:35] LABS: M R Staph aureus DNA By PCR Negative (Negative); Probe Check PASS; Specimen Processing Control PASS; Staph aureus DNA By PCR NEGATIVE (Negative)
--- NOTE | 2022-11-30 18:00 | PCM.CONS.GEN ---
Assessment & Plan Assessment/Plan (1) Venous insufficiency (chronic) (peripheral): PLAN: Exam performed Bilateral tib-fib x-rays ordered Duplex scan ordered to rule out DVT despite chronic warfarin therapy Bilateral wounds examined left lower extremity noted to be diffusely swelling swollen relative to the right which may be related to CVA and left-sided hemiplegia. We will plan to rule out DVT on that side. left leg appears to be infected with cellulitis should respond to IV antibiotics likely will not require additional debridement. We will continue to monitor closely. Plan to await culture and sensitivity patient current relief she currently receiving IV vancomycin and Zosyn. We will plan to reexamine legs in the morning and apply new dressing. We will order triamcinolone ointment to apply to the periwound or area to assist with erythema and subcutaneous edema that may be contributing to patient's tenderness. Bilateral lower extremities today redressed with Adaptic ABD pads 4 x 4's Kerlix and Marcio bandages. We will continue to follow closely until some resolution is noted bilateral lower extremity. Patient noncompliant with elevation. Mainstay of treatment for this patient will be IV antibiotics, compression therapy, elevation. (2) Non-pressure chronic ulcer of left calf with fat layer exposed: (3) Non-pressure chronic ulcer of right calf with fat layer exposed: (4) Cellulitis and abscess of left leg: HPI Consult Data Date of Consult: 11/30/22 HPI Narrative Reason for Consultation: Bilateral leg wounds with cellulitis HPI Narrative: ESTEBAN URBINA, is a 67 M who presents to hospital with bilateral infected leg wounds. Patient has a history of chronic venous insufficiency with left side swelling greater than right side and a history of stroke with left hemiplegia. Patient on chronic Coumadin therapy. Patient denies any constitutional symptoms but notes that her wound was debrided at the wound care center using a [place] debrider 1 week prior. After this he noticed increased pain redness swelling and drainage specifically to his left lower extremity wounds. Patient presented to the emergency room on Tuesday of the past week 11/28/2022 at which time he was treated and discharged. Patient represented to the emergency room today with worsening of pain swelling redness and drainage to left lower extremity. Patient denies any fever chills nausea vomiting chest pain calf pain shortness of breath. Patient does admit that he maintains a dependent position with his bilateral lower extremities despite this is likely contributing to worsening of his edema. Patient has no other complaints at this time. [facility] Medical History Alcohol use History of edema History of pain when walking History of stress test Hypertension Lupus Non-smoker Pulmonary embolism Seizures Stroke/cerebrovascular accident Uses wheelchair Wears glasses Home Medications lisinopril 5 mg tablet 10 mg PO BID blood pressure 08/27/15 [History Last Taken 02/14/19 07:30] omega-3 fatty acids 500 mg capsule (Fish Oil) 1,000 mg PO DAILY supplement 08/27/15 [History Last Taken 07/01/22] Clonidine Hcl 1 tab PO BID Blood pressure\ 02/07/19 [History Last Taken 11/30/22] baclofen 10 mg tablet 10 mg PO .QID PRN Muscle Spasm 04/14/22 [History Last Taken Unknown] methadone 10 mg tablet 10 mg PO Q12H Check with primary doctor 04/14/22 [History Last Taken Unknown] niacin 50 mg tablet 25 mg PO DAILY Check with primary doctor 04/14/22 [History Last Taken Unknown] phenytoin sodium extended 100 mg capsule (Dilantin Extended) 200 mg PO DAILY Check with primary doctor 04/14/22 [History Last Taken 07/07/22 06:15] pregabalin 75 mg capsule (Lyrica) 75 mg PO TID Check with primary doctor 04/14/22 [History Last Taken Unknown] turmeric root extract 500 mg capsule 100 mg PO BID supplement 04/14/22 [History Last Taken 07/02/22] warfarin 4 mg tablet (Jantoven) 5 mg PO MOWEFR Blood thinner 04/14/22 [History Last Taken 07/01/22] warfarin 5 mg tablet (Jantoven) 5 mg PO UD blood thinner 04/14/22 [History Last Taken 07/01/22] coenzyme Q10 100 mg capsule (CoQ-10) 100 mg PO QODAY Check with primary doctor 07/02/22 [History Last Taken Unknown] ergocalciferol (vitamin D2) 1,250 mcg (50,000 unit) capsule (Vitamin D2) 1,250 mcg PO WE Check with primary doctor 07/02/22 [History Last Taken Unknown] phenytoin sodium extended 100 mg capsule (Dilantin Extended) 100 mg PO QHS Check with primary doctor 07/02/22 [History Last Taken Unknown] furosemide 20 mg tablet (Lasix) 20 mg PO LUNCH 07/05/22 [History Last Taken Unknown] furosemide 40 mg tablet (Lasix) 40 mg PO DAILY 07/05/22 [History Last Taken Unknown] Allergy/AdvReac Type Severity Reaction Status Date / Time duloxetine [From Cymbalta] Allergy Rash Verified 11/30/22 08:09 sulfamethoxazole Allergy Rash Verified 11/30/22 08:09 [From Bactrim] trimethoprim [From Bactrim] Allergy Rash Verified 11/30/22 08:09 ciprofloxacin [From Cipro] AdvReac PAIN IN Verified 11/30/22 08:09 FEET ciprofloxacin HCl AdvReac Rash Verified 11/30/22 08:09 [From Cipro] citalopram AdvReac SUICIDAL Verified 11/30/22 08:09 THOUGHTS gabapentin [From Neurontin] AdvReac EFFECTED Verified 11/30/22 08:09 VISION AND HEARING hydrochlorothiazide AdvReac DIZZINESS Verified 11/30/22 08:09 levetiracetam [From Keppra] AdvReac Other Verified 11/30/22 08:09 Spfzhyd-[id number]-UxK Reductase AdvReac Other Verified 11/30/22 08:09 Inhibitor tramadol AdvReac Other Verified 11/30/22 08:09 Family History Father Colon cancer Hypertension Gastric ulcer Mother Heart disease Brother Diabetes Surgical History History of embolic filter insertion Hx of colonoscopy Social History household members: none Smoking Status: Never smoker alcohol intake: never substance use type: does not use ROS Constitutional Constitutional: Denies difficulty sleeping, malaise or night sweats Eyes Eyes: Denies blind spots, bloody eye or discharge from eye(s) ENT HEENT: Denies change in voice, dental pain or foreign body in nose Cardiovascular Cardiovascular: Reports cold extremities and edema; Denies arrhythmia on telemetry Respiratory/Chest Respiratory/Chest: Denies chest congestion, dyspnea on exertion or excessive phlegm production Physical Exam Narrative Patient alert oriented x3. Vascular: Dorsalis pedis posterior tibial pulses palpable to bilateral lower extremity. Diffuse pitting edema +2 on the right lower extremity +3 on the left lower extremity. Focal increase in warmth the left lower extremity. Logic: Light touch protective sensation present to bilateral feet. Dermatologic diffuse full-thickness ulcerations to left lower extremity along the anterior medial lateral and posterior leg running from just distal to the knee to just proximal to the ankle joint. These wounds demonstrate diffuse serous drainage with a fibrogranular base. There is noted to be diffuse periwound erythema edema and warmth. Right lower extremity ulcerations demonstrate full-thickness ulcerations to lesser degree extending circumferentially to the right mid calf with mixed fibrogranular base and some sanguinous crusting. Mild periwound erythema to that site as well. Musculoskeletal: Pain palpation of left calf and popliteal fossa. No gross deformity contributing to wound formation. Some evidence of foot drop to left lower extremity. Lab / Micro Data Result Diagrams: 11/30/22 08:25 11/30/22 08:25 Labs: Laboratory Results - last 24 hr 11/30/22 08:25: WBC 6.6, RBC 4.26 L, Hgb 13.3, Hct 41.5, MCV 97.4 H, MCH 31.2, MCHC 32.0, RDW Std Deviation 50.6 H, RDW Coeff of [place] 14.2, Plt Count 417, MPV 8.9, Immature Gran % (Auto) 0.500, Neut % (Auto) 67.8, Lymph % (Auto) 17.1 L, [place] % (Auto) 12.0 H, Eos % (Auto) 1.8, Baso % (Auto) 0.8, Absolute Neuts (auto) 4.5, Absolute Lymphs (auto) 1.13, Nucleated RBC % 0 11/30/22 08:25: PT 25.2 H, INR 2.3 11/30/22 08:25: Sodium 136, Potassium 4.2, Chloride 101, Carbon Dioxide 29.0, Anion Gap 6, BUN 17, Creatinine 0.87, Estim Creat Clear Calc 76.39, Est GFR (MDRD) Af Amer 113, Est GFR (MDRD) Non-Af 93, BUN/Creatinine Ratio 19.5, Glucose 120 H, Calcium 9.3 11/30/22 08:25: ESR 30 H 11/30/22 08:25: Total Bilirubin 0.40, Direct Bilirubin 0.14, AST 9 L, ALT 16, Alkaline Phosphatase 76, Total Protein 7.8, Albumin 3.3, Globulin 4.5 H 11/30/22 08:25: B-Natriuretic Peptide 9.6 11/30/22 15:50: S.aureus Protein A PCR NEGATIVE, MRSA (PCR) Negative Radiology Impression Brain CT 11/30/22 08:11 IMPRESSION: Chronic involutional changes of the brain. Old lacunar infarct of the right thalamus. Electronically Signed: Timo Durham MD at 9:10 EST , Cervical Spine CT 11/30/22 08:11 IMPRESSION: Multilevel degenerative changes, as described above. Electronically Signed: Timo Durham MD at 9:04 EST Reading Location ID and State: [id number] / [facility] [employer] , Service support , Shoulder X-Ray 11/30/22 10:02 IMPRESSION: Degenerative changes. No acute abnormality is seen. Electronically Signed: Timo Durham MD at 11:17 EST , Abdomen/Pelvis CT 11/30/22 10:03 IMPRESSION: Mildly distended gallbladder with multiple gallstones. A filter is seen within the inferior vena cava with the evidence of multiple varicosities in the subcutaneous tissues overlying the right lower abdominal and pelvic wall as well as in the abdomen and pelvis. There has been essentially no change since prior study. Prostatic enlargement with indentation of the bladder base. Electronically Signed: Timo Durham MD at 11:17 EST , Echocardiogram 11/30/22 13:56 Interpretation Summary The study was technically difficult. Based upon the 2D echocardiographic images obtained there appears to be normal left ventricular size, wall motion, and systolic function. The estimated ejection fraction is 70 %. The left atrium is mildly enlarged. Trivial mitral valve insufficiency. Diastolic function is indeterminate. Ordering Physician: Satya Erazo Referring Physician: Patricia Garcia Performed By: Erica Solis RCS Shoulder X-Ray 11/30/22 15:55 IMPRESSION: Degenerative changes of the shoulder. There is no acute fracture or dislocation. There is continued narrowing of the acromiohumeral space with the prior study. Question rotator cuff pathology. Electronically Signed: René Cloeman DO at 16:11 EST ,
[2022-11-30] MEDS: Acetaminophen 325 MG Tablet 650 MG PO (18:36)
--- NOTE | 2022-11-30 21:00 | PCM.RX.CS ---
Consult Pharmacy has been consulted to manage selected antiobiotic: Vancomycin Type of Consult: New start Suspected Infection: Other Labs: Sodium 136 mmol/L (136-145) 11/30/22 08:25 Potassium 4.2 mmol/L (3.5-5.1) 11/30/22 08:25 Chloride 101 mmol/L (98-107) 11/30/22 08:25 Carbon Dioxide 29.0 mmol/L (21.0-32.0) 11/30/22 08:25 Anion Gap 6 (5-15) 11/30/22 08:25 BUN 17 mg/dL (7-18) 11/30/22 08:25 Creatinine 0.87 mg/dL (0.70-1.30) 11/30/22 08:25 Est GFR (MDRD) Af Amer 113 mL/min (>60) 11/30/22 08:25 Est GFR (MDRD) Non-Af 93 mL/min (>60) 11/30/22 08:25 BUN/Creatinine Ratio 19.5 RATIO (10-20) 11/30/22 08:25 Glucose 120 mg/dL (74-106) H 11/30/22 08:25 Goal Trough: 15-20 mcg/mL Pharmacy Plan for Drug Dosing: NEW START IV VANCOMYCIN Consulting Physician: Dr. Erazo Indication: Diabetic Foot Infection Goal Trough: 15-20 SrCr: 0.87 CrCl: 76 mls/min Comments: pt received a 2000mg loading dose on 11/30/22 at 1902 Vancomycin Dose: based on pts weight and renal function, recommend an initial dose 1750mg q12h starting 12/01/22 at 0700. Trough prior to the 4th total dose Pending Level: 12/02/22 at 0630 Pharmacy Service will continue to monitor and adjust dosing as required. Follow-Up Labs: Trough Vancomycin - 12/02/22 at 0630
[2022-11-30 21:41] VITALS: BP 122/68; PULSE 118; RESP 18; TEMP 37.4; O2SAT 95
[2022-11-30] MEDS: Pregabalin 75 MG Capsule PO (21:45)
[2022-11-30] MEDS: Phenytoin Na 100 MG Capsule PO (21:45)
[2022-11-30] MEDS: Senna/Docusate Sodium 1 Tablet 2 TABLET PO (21:46)
[2022-11-30] MEDS: HYDROmorphone 0.5 MG/0.5 ML SYRINGE IV (21:47)
[2022-12-01] VITALS (8 sets, daily range): BP systolic 93–124; BP diastolic 56–77; PULSE 80–102; RESP 16–20; TEMP 36.6–37.3; O2SAT 94–97; BMI 40.6
[2022-12-01] MEDS: Baclofen 10 MG Tablet PO ×4 (01:50→21:52)
[2022-12-01] MEDS: oxyCODONE 5 MG Tablet PO ×2 (03:02→11:40)
[2022-12-01] MEDS: Pregabalin 75 MG Capsule PO ×3 (05:27→21:52)
[2022-12-01] MEDS: Acetaminophen 325 MG Tablet 650 MG PO ×3 (05:28→18:15)
[2022-12-01 06:46] LABS: Absolute Lymphocyte Count 1.52 X10^3/uL (0.83-4.51); Absolute Neutrophil Count 3.9 X10^3/uL (2.0-7.7); Basophil# 0.04 X10^3/uL; Basophil% 0.6 % (0-1); Eosinophil# 0.04 X10^3/uL; Eosinophils% 0.6 % (0-5); Hemoglobin 12.2 g/dL (13.0-16.5); Lymphocyte # 1.52 X10^3/ul (0.83-4.51); Lymphocyte % 23.8 % (19-41); Mean Corpuscular Volume 97.1 fL (80-94); Monocyte# 0.88 X10^3/uL; Monocyte% 13.8 % (0-10); NRBC Flagged by Analyzer 0 % (0-5); Neutrophil # 3.91 X10^3/uL (2.7-7.7); Platelet Count 336 K/mm3 (150-450); RBC Distribution Width CV 14.2 % (11.6-14.6); RBC Distribution Width SD 51.2 fl (35.1-43.9); Red Blood Count 3.81 M/mm3 (4.6-6.2); White Blood Count 6.4 K/mm3 (4.4-11.0)
[2022-12-01 07:11] LABS: Prothrombin Time (Protime)PT. 30.8 SECONDS (11.7-14.9)
--- NOTE | 2022-12-01 07:25 | PN.HOSP_ITS ---
Reason for Visit Reason for Visit: Diagnoses Venous insufficiency (chronic) (peripheral) (11/30/22) Cutaneous abscess of left lower limb (11/30/22) Cutaneous abscess of limb, unspecified (11/30/22) Cellulitis of left lower limb (11/30/22) Cellulitis of unspecified part of limb (11/30/22) Non-pressure chronic ulcer of right calf with fat layer exposed (11/30/22) Non-pressure chronic ulcer of left calf with fat layer exposed (11/30/22) Subjective Subjective Complains of severe pain on his left side due to his prior CVA and subsequent thalamic syndrome. He also states that he has electromagnetic hypersensitivity that contributes to his pain. Objective Data Objective Data Vital Signs: Vital Signs Temp Pulse Resp BP Pulse Ox O2 Del Method 37.2 C 102 H 16 124/77 H 96 Room Air 12/01/22 02:11 12/01/22 02:11 12/01/22 02:11 12/01/22 02:11 12/01/22 02:11 12/01/22 02:11 Oxygen Delivery Method Room Air Weight: 114.3 kg Body Mass Index (BMI) 40.6 Intake & Output: Intake and Output for Last 24 Hours 11/29/22 11/30/22 12/01/22 23:59 23:59 23:59 Intake Total 590 / 590 50 / 50 Output Total 2200 / 2200 2400 / 2400 Balance -1610 / -1610 -2350 / -2350 Lab / Micro Data Result Diagrams: 12/01/22 06:10 12/01/22 06:10 Labs: Laboratory Results - last 24 hr 11/30/22 08:25: WBC 6.6, RBC 4.26 L, Hgb 13.3, Hct 41.5, MCV 97.4 H, MCH 31.2, MCHC 32.0, RDW Std Deviation 50.6 H, RDW Coeff of [place] 14.2, Plt Count 417, MPV 8.9, Immature Gran % (Auto) 0.500, Neut % (Auto) 67.8, Lymph % (Auto) 17.1 L, [place] % (Auto) 12.0 H, Eos % (Auto) 1.8, Baso % (Auto) 0.8, Absolute Neuts (auto) 4.5, Absolute Lymphs (auto) 1.13, Nucleated RBC % 0 11/30/22 08:25: PT 25.2 H, INR 2.3 11/30/22 08:25: Sodium 136, Potassium 4.2, Chloride 101, Carbon Dioxide 29.0, Anion Gap 6, BUN 17, Creatinine 0.87, Estim Creat Clear Calc 76.39, Est GFR (MDRD) Af Amer 113, Est GFR (MDRD) Non-Af 93, BUN/Creatinine Ratio 19.5, Glucose 120 H, Calcium 9.3 11/30/22 08:25: ESR 30 H 11/30/22 08:25: Total Bilirubin 0.40, Direct Bilirubin 0.14, AST 9 L, ALT 16, Alkaline Phosphatase 76, Total Protein 7.8, Albumin 3.3, Globulin 4.5 H 11/30/22 08:25: B-Natriuretic Peptide 9.6 11/30/22 15:50: S.aureus Protein A PCR NEGATIVE, MRSA (PCR) Negative 12/01/22 06:10: WBC 6.4, RBC 3.81 L, Hgb 12.2 L, Hct 37.0 L, MCV 97.1 H, MCH 32.0, MCHC 33.0, RDW Std Deviation 51.2 H, RDW Coeff of [place] 14.2, Plt Count 336, MPV 9.0, Immature Gran % (Auto) 0.200, Neut % (Auto) 61.0, Lymph % (Auto) 23.8, [place] % (Auto) 13.8 H, Eos % (Auto) 0.6, Baso % (Auto) 0.6, Absolute Neuts (auto) 3.9, Absolute Lymphs (auto) 1.52, Nucleated RBC % 0 12/01/22 06:10: PT 30.8 H, INR 3.0 Radiography Diagnostic Testing: Radiology Impression Brain CT 11/30/22 08:11 IMPRESSION: Chronic involutional changes of the brain. Old lacunar infarct of the right thalamus. Electronically Signed: Timo Durham MD at 9:10 EST , Cervical Spine CT 11/30/22 08:11 IMPRESSION: Multilevel degenerative changes, as described above. Electronically Signed: Timo Durham MD at 9:04 EST , Shoulder X-Ray 11/30/22 10:02 IMPRESSION: Degenerative changes. No acute abnormality is seen. Electronically Signed: Timo Durham MD at 11:17 EST , Abdomen/Pelvis CT 11/30/22 10:03 IMPRESSION: Mildly distended gallbladder with multiple gallstones. A filter is seen within the inferior vena cava with the evidence of multiple varicosities in the subcutaneous tissues overlying the right lower abdominal and pelvic wall as well as in the abdomen and pelvis. There has been essentially no change since prior study. Prostatic enlargement with indentation of the bladder base. Electronically Signed: Timo Durham MD at 11:17 EST , Echocardiogram 11/30/22 13:56 Interpretation Summary The study was technically difficult. Based upon the 2D echocardiographic images obtained there appears to be normal left ventricular size, wall motion, and systolic function. The estimated ejection fraction is 70 %. The left atrium is mildly enlarged. Trivial mitral valve insufficiency. Diastolic function is indeterminate. Ordering Physician: Satya Erazo Referring Physician: Patricia Garcia Performed By: Erica Solis RCS Shoulder X-Ray 11/30/22 15:55 IMPRESSION: Degenerative changes of the shoulder. There is no acute fracture or dislocation. There is continued narrowing of the acromiohumeral space with the prior study. Question rotator cuff pathology. Electronically Signed: René Coleman DO at 16:11 EST Reading Location ID and State: [address] [place] [address] Tel [phone], Service support , Physical Exam Const alert and no apparent distress Neck no lymphadenopathy Resp normal respiratory effort, no retractions, no use of accessory muscles and clear to auscultation bilaterally Cardio regular rate, regular rhythm, S1 normal heart sound and S2 normal heart sound GI normal to inspection, nondistended, normoactive bowel sounds and soft to palpation Extremity Extremity Narrative: had significant sensitivity to LLE yelling for me to stop touching his leg when I was not. Sloughed skin involving his almost entirety of his lower leg with the exception of his foot. Open wounds with drainage. Neuro oriented x3 and moves all extremities Assessment & Plan Assessment/Plan (1) Cellulitis and abscess of leg: PLAN: Unclear if this is actual cellulitis, but given his reported sensitivity, will continue to treat. Wound culture with MRSA and blood cultures x2. Antibiotics w vancomycin and Zosyn. Wound care nurse consult. (2) Lymphedema: PLAN: Bilateral lower extremity edema and bilateral lymphedema: Patient on oral furosemide at home probably not working. Started on IV furosemide 40 mg every 12 hourly. 2D echo showed EF of 70%. Enlarged left atrium. Diastolic function indeterminate. (3) Fall: PLAN: Slip and fall and small laceration of right supraorbital margin: Lacerated wound was stitched by ED physician. No loss of consciousness. Patient had CT brain which showed old left infarct of right thalamus, CT C-spine reported multilevel degenerative changes. Right Shoulder x-ray degenerative changes no acute abnormality. Abdominal pelvis CT shows mildly distended GB with multiple gallstones. IVC filter. Prostatic enlargement with indentation of bladder base. 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 On exam, patient was complaining about me touching his leg when I was not even close to touching his leg. He then stated it was because I was touching the absorbant dressing that his leg was resting on. I then made careful not when I touched that dressing that I was not actually altering it on his leg and he was complaining of pain. So his exam seem to be not consistent and proportion to exam from what I was able to gather. Continue with methadone. PLAN: Plan Chronic conditions * History of pulmonary embolism: Patient on warfarin, continued. INR therapeutic. Patient had IVC filter as reported in his abdomen pelvis CT. Monitor INR daily. * Stroke in 2008 with restricted mobility: PT and OT ordered. No new finding pertaining to stroke. * hypertension, resume lisinopril * chronic alcohol use, * lupus, on no chronic meds * seizure: Continue phenytoin. Check phenytoin level * Chronic pain: Continue to hold methadone VTE prophylaxis: On warfarin. Charges/Coding Visit Charges Inpatient E&M: 86152 Subs Hosp L2
[2022-12-01 07:30] LABS: Anion Gap 7 (5-15); BUN 14 mg/dL (7-18); BUN/Creat Ratio 17.7 RATIO (10-20); Calcium,Total 8.7 mg/dL (8.5-10.1); Chloride 103 mmol/L (98-107); Creatinine, Serum 0.79 mg/dL (0.70-1.30); EST Glomerular Filtration Rate 104 mL/min (>60); Est Glom Filt Rate - Afr Amer 126 mL/min (>60); Estimated Creatinine Clearance 84.12 ml/min; Glucose 107 mg/dL (74-106); Potassium 3.6 mmol/L (3.5-5.1); Prealbumin 16.1 mg/dL (20.0-40.0); Sodium Level 137 mmol/L (136-145)
--- NOTE | 2022-12-01 08:00 | RAD_ITS ---
STUDY: X-RAY - RIGHT TIBIA AND FIBULA REASON FOR EXAM: Male, 67 years old. WOUNDS TECHNIQUE: 2 view(s) of the tibia and fibula were obtained. COMPARISON: None. FINDINGS: Normal visualized tibia. Normal visualized fibula. Soft tissue swelling. Findings suggestive of an ulceration seen in the lateral aspect of the mid leg as well as in the medial aspect of the mid leg and anteriorly. RAD/Tibia & Fibula 2 Views IMPRESSION: Soft tissue ulcerations. No bony abnormality is seen. Electronically Signed: Timo Durham MD at 14:51 EST ,
--- NOTE | 2022-12-01 08:00 | VDLE_ITS ---
Reason For Study: Swelling RIGHT LEFT GSV is normal. GSV is normal. CFV is partially compressible with CFV is compressible spontaneous, phasic, hyperechoic intraluminal echogenicity competent and demonstrates normal consistent with chronic DVT. Vessel appears augmentation. spontaneous and phasic but demonstrates FV is partially compressible with reflux >1 second, consistent with deep vein hyperechoic intraluminal echogenicity insufficiency. consistent with chronic DVT. Vessel appears FV is partially compressible with hyperechoic compressible, spontaneous, phasic, competent intraluminal echogenicity consistent with and demonstrates normal augmentation. chronic DVT. Vessel appears compressible, POP V is partially compressible with spontaneous, phasic, competent and hyperechoic intraluminal echogenicity demonstrates normal augmentation. consistent with chronic DVT. Vessel appears POP V is compressible, spontaneous, phasic, compressible, spontaneous, phasic, competent competent and demonstrates normal and demonstrates normal augmentation. augmentation. T/P Trunk is compressible. T/P Trunk is compressible. PTV is compressible. PTV is compressible. LT PerV is compressible. RT PerV is compressible. Calf veins only visualized in proximal calf Procedure due to open, weeping wounds throughout rest This is a venous duplex using B-mode, color of the lower leg. flow and spectral Doppler. Enlarged lymph node noted in Left groin Exam performed portable in patient room. measuring approximately 4.81cm x 1.10cm. The exam was diagnostic. The study was technically limited. A preliminary report was called and/or faxed to M/S 3 RN responsible for patient. VL/Venous Duplex US - [place] Extrem Interpretation Summary Chronic deep vein thrombosis is noted in the right common femoral vein, right f emoral vein. Chronic deep vein thrombosis is noted in the left femoral vein, left popliteal vein Enlarged left inguinal lymph node noted measuring approximately 4.81cm x 1.10cm . Positive for reflux in the right common femoral vein Ordering Physician: Jason Carranza Referring Physician: Patricia Garcia Performed By: Gary Soto RVT
--- NOTE | 2022-12-01 08:00 | RAD_ITS ---
STUDY: X-RAY - LEFT TIBIA AND FIBULA REASON FOR EXAM: Male, 67 years old. Wounds TECHNIQUE: 2 view(s) of the tibia and fibula were obtained. COMPARISON: None. FINDINGS: Normal visualized tibia. Normal visualized fibula. Diffuse soft tissue swelling. RAD/Tibia & Fibula 2 Views IMPRESSION: Diffuse soft tissue swelling Electronically Signed: Timo Durham MD at 14:51 EST ,
--- NOTE | 2022-12-01 08:05 | NURSING ---
x ray here for bedside ble x rays
[2022-12-01] MEDS: HYDROmorphone 0.5 MG/0.5 ML SYRINGE IV (08:26)
--- NOTE | 2022-12-01 09:34 | PN_ITS ---
Subjective Subjective Patient seen bedside this morning. Pain was improved until dressing change. Patient has significant pain with dressing changes. Specifically to the left lower extremity. Patient denies constitutional symptoms at current. Patient denies any chest pain calf pain shortness of breath. No new complaints. Objective Data Objective Data Vital Signs: Vital Signs Temp Pulse Resp BP Pulse Ox O2 Del Method 97.9 F 88 18 119/75 95 Room Air 12/01/22 08:00 12/01/22 08:00 12/01/22 08:00 12/01/22 08:00 12/01/22 08:00 12/01/22 08:00 Oxygen Delivery Method Room Air Weight: 114.3 kg Body Mass Index (BMI) 40.6 Intake & Output: Intake and Output for Last 24 Hours 11/29/22 11/30/22 12/01/22 23:59 23:59 23:59 Intake Total 590 / 590 50 / 50 Output Total 2200 / 2200 2400 / 2400 Balance -1610 / -1610 -2350 / -2350 Lab / Micro Data Result Diagrams: 12/01/22 06:10 12/01/22 06:10 Labs: Laboratory Results - last 24 hr 11/30/22 08:25: ESR 30 H 11/30/22 08:25: Total Bilirubin 0.40, Direct Bilirubin 0.14, AST 9 L, ALT 16, Alkaline Phosphatase 76, Total Protein 7.8, Albumin 3.3, Globulin 4.5 H 11/30/22 08:25: B-Natriuretic Peptide 9.6 11/30/22 15:50: S.aureus Protein A PCR NEGATIVE, MRSA (PCR) Negative 12/01/22 06:10: WBC 6.4, RBC 3.81 L, Hgb 12.2 L, Hct 37.0 L, MCV 97.1 H, MCH 32.0, MCHC 33.0, RDW Std Deviation 51.2 H, RDW Coeff of [place] 14.2, Plt Count 336, MPV 9.0, Immature Gran % (Auto) 0.200, Neut % (Auto) 61.0, Lymph % (Auto) 23.8, [place] % (Auto) 13.8 H, Eos % (Auto) 0.6, Baso % (Auto) 0.6, Absolute Neuts (auto) 3.9, Absolute Lymphs (auto) 1.52, Nucleated RBC % 0 12/01/22 06:10: PT 30.8 H, INR 3.0 12/01/22 06:10: Sodium 137, Potassium 3.6, Chloride 103, Carbon Dioxide 27.0, Anion Gap 7, BUN 14, Creatinine 0.79, Estim Creat Clear Calc 84.12, Est GFR (MDRD) Af Amer 126, Est GFR (MDRD) Non-Af 104, BUN/Creatinine Ratio 17.7, Gl ucose 107 H, Calcium 8.7, Prealbumin 16.1 L Radiography Diagnostic Testing: Radiology Impression Shoulder X-Ray 11/30/22 10:02 IMPRESSION: Degenerative changes. No acute abnormality is seen. Electronically Signed: Timo Durham MD at 11:17 EST , Abdomen/Pelvis CT 11/30/22 10:03 IMPRESSION: Mildly distended gallbladder with multiple gallstones. A filter is seen within the inferior vena cava with the evidence of multiple varicosities in the subcutaneous tissues overlying the right lower abdominal and pelvic wall as well as in the abdomen and pelvis. There has been essentially no change since prior study. Prostatic enlargement with indentation of the bladder base. Electronically Signed: Timo Durham MD at 11:17 EST , Echocardiogram 11/30/22 13:56 Interpretation Summary The study was technically difficult. Based upon the 2D echocardiographic images obtained there appears to be normal left ventricular size, wall motion, and systolic function. The estimated ejection fraction is 70 %. The left atrium is mildly enlarged. Trivial mitral valve insufficiency. Diastolic function is indeterminate. Ordering Physician: Satya Erazo Referring Physician: Patricia Garcia Performed By: Erica Solis RCS Shoulder X-Ray 11/30/22 15:55 IMPRESSION: Degenerative changes of the shoulder. There is no acute fracture or dislocation. There is continued narrowing of the acromiohumeral space with the prior study. Question rotator cuff pathology. Electronically Signed: René Coleman DO at 16:11 EST Reading Location ID and State: [address] [place] [address] Tel [phone], Service support , Physical Exam Narrative Edema and erythema to left lower extremity and right lower extremity significantly improved with dressing change today. Wound sites are significantly improved and appears superficial in nature. Assessment & Plan Assessment/Plan (1) Cellulitis and abscess of left leg: PLAN: Exam performed Radiographs tib-fib bilaterally negative for deep acute or chronic infection. Clinically I have no concern for abscess. This issue is likely related to cellulitis versus severe stasis dermatitis after aggressive debridement in the wound care center. Site appears significantly improved today. Patient was noncompliant with elevation while at home this likely contributed patient is continued edema and degradation of his wounds. Duplex ultrasound pending to rule out any evidence of DVT that may contribute to bilateral lower extremity swelling. Today dressing was changed. Triamcinolone ointment applied to periwound areas along with silver alginate dry sterile dressing and overlying compression wraps. This was performed bilaterally. Due to significant pain with dressing changes I recommend that we keep this dressing intact and change it again on Tuesday. If erythema edema significantly improved may turn to a every third day dressing change schedule to minimize manipulation of the painful wound sites allow for edema resolution. Patient to be evaluated again on Tuesday.
[2022-12-01] MEDS: Furosemide 40 MG/4 ML Vial IV ×2 (09:39→18:13)
[2022-12-01] MEDS: Phenytoin Na 100 MG Capsule 200 MG PO (09:39)
[2022-12-01] MEDS: Senna/Docusate Sodium 1 Tablet 2 TABLET PO ×2 (09:40→21:55)
[2022-12-01] MEDS: Ergocalciferol 1.25 MG (50, 000 UNIT) Capsule PO (09:41)
[2022-12-01] MEDS: Lisinopril 10 MG Tablet PO ×2 (09:42→21:52)
[2022-12-01 11:03] LABS: Hemoglobin A1c 5.6 % (3.8-5.6)
--- NOTE | 2022-12-01 11:25 | CASEMGMT ---
Social Work SW called [facility] to confirm pt is from there. Spoke to Cha. Cha confirmed pt is from [facility]. Can return if able to ambulate on own. Cha also informed if pt needs to return skilled a be will be open sometime early next week. Cha stated no need for updates unless pt would need to come back skilled, then it would be treated like normal referral. LUIS met with pt who confirmed would like to return to his home at [facility]. LUIS spoke to therapy team while in pt room as they had just finished evaluating pt. Therapy stated pt was standby assist for most treatment, just painful at times. Therapy team feels pt could return home on own/continued HHC. PLAN: Return to [place] apartment at [facility], when medically ready CARLOS Prieto
--- NOTE | 2022-12-01 11:40 | CASEMGMT ---
RN?CM?[employer]SEMBLER?CM?to room to meet with patient for initial transition planning/care coordination?assessment.?RN?CM?introduced self and role at [facility].? Pt voices understanding and consents to?assessment?at this time.? Pt sitting up in chair in room in no distress at this time.? Pt is A/O at this time and answers all questions appropriately.?? Care providers, pharmacy, and demographics verified/updated at this time. PCP: Dr Garcia Specialists:Sees Dr Garcia [facility] every Tuesday. Pt is also active w/[facility]iative care. Palliative notified of pt's admission to [facility]. Preferred Pharmacy: [facility] Insurance: [facility], MMO Prescription Benefit:?Yes, [employer] Living Will/HPOA:?Has both LW and HCPOA, who is his sister, Kacie COVARRUBIASOK: Sister/Kacie SAUNDERS Living Arrangements: Lives alone @ [facility] in Independent living in one-story home w/no steps to enter. States is indep w/ADL's, IADL's, and manages his own medications. Transportation:?Pt states he does not drive. His sister and his kids help provide transportation for him. DME: ?States has the following DME:?shower chair, grab bars, medical alert, walker, cane. ?Pt states no need for further DME at this time.? HHC/SNF: No hx of SNF. Declines wanting to go to SNF. Active w/[facility] HHC: SN and he would like to resume w/them. He declines offer of other HHC choices. Agreeable to PT/OT being added. MS3 RN FROYLAN, Svetlana, made aware. Pt states HHC nurse comes weekly to do wound care/dsg changes and he goes to every Tuesday for same. He states, if dresssing changes are needed to be done more frequently that he is willing and able to do them. Pt wishes to return home and states has no concerns with going home at time of discharge.? Pt states does not smoke. He states he drinks very little, stating he opens a can of beer and it takes him 2-3 days to finish it, stating he just takes a few sips at a time to cut the pain. He declines wanting or needing resources to help quit drinking. CM?to follow for any further discharge planning/needs.? Pt voices no further concerns/needs at this time.? Advised pt to ask for?CM?if any further questions/concerns/needs arise.? Voices understanding. PLAN:??Home w/resumption of HHC: SN for dressing changes/wound care. PT/OT to be added to HHC orders. Coretta BSN?RN?CM
--- NOTE | 2022-12-01 12:00 | CASEMGMT ---
Social Work? SW in to pt room to verify advance directives. Pt confirmed has AD and named?Sirena Oconnell, as agent. SW made pt aware documents are not on file and if pt would like to bring these documents in the documents can be dropped off at the Medical Records department. Pt voiced understanding.?? CARLOS Prieto?
[2022-12-01 12:07] LABS: Phenytoin (Dilantin) Level 7.5 mL (10.0-20.0)
--- NOTE | 2022-12-01 14:37 | CASEMGMT ---
Updated Zakiya at [facility] that PT and OT were added to pt services.
[2022-12-01] MEDS: Phenytoin Na 100 MG Capsule PO (21:52)
[2022-12-02 02:29] VITALS: BP 116/71; PULSE 86; RESP 13; TEMP 36.8; O2SAT 98
[2022-12-02 06:00] VITALS: BMI 39.8
[2022-12-02] MEDS: Pregabalin 75 MG Capsule PO ×3 (06:06→21:01)
[2022-12-02 06:56] LABS: Absolute Lymphocyte Count 1.47 X10^3/uL (0.83-4.51); Absolute Neutrophil Count 2.8 X10^3/uL (2.0-7.7); Basophil# 0.03 X10^3/uL; Basophil% 0.6 % (0-1); Eosinophil# 0.25 X10^3/uL; Eosinophils% 4.8 % (0-5); Hemoglobin 12.7 g/dL (13.0-16.5); Lymphocyte # 1.47 X10^3/ul (0.83-4.51); Lymphocyte % 28.2 % (19-41); Mean Corp Hgb Conc 33.4 g/dL (32-36); Mean Corpuscular Hgb 32.4 pg (27.0-32.0); Mean Corpuscular Volume 96.9 fL (80-94); Mean Platelet Vol. 8.8 fl (6.2-12.0); Monocyte# 0.67 X10^3/uL; Monocyte% 12.9 % (0-10); NRBC Flagged by Analyzer 0 % (0-5); Neutrophil # 2.77 X10^3/uL (2.7-7.7); Neutrophil % 53.1 % (47-70); Platelet Count 327 K/mm3 (150-450); RBC Distribution Width CV 14.2 % (11.6-14.6); RBC Distribution Width SD 50.8 fl (35.1-43.9); Red Blood Count 3.92 M/mm3 (4.6-6.2); White Blood Count 5.2 K/mm3 (4.4-11.0)
[2022-12-02 07:03] LABS: Anion Gap 6 (5-15); BUN 17 mg/dL (7-18); BUN/Creat Ratio 22.8 RATIO (10-20); Calcium,Total 8.9 mg/dL (8.5-10.1); Chloride 106 mmol/L (98-107); Creatinine, Serum 0.75 mg/dL (0.70-1.30); EST Glomerular Filtration Rate 111 mL/min (>60); Est Glom Filt Rate - Afr Amer 135 mL/min (>60); Estimated Creatinine Clearance 88.61 ml/min; Glucose 112 mg/dL (74-106); Potassium 4.1 mmol/L (3.5-5.1); Sodium Level 142 mmol/L (136-145)
[2022-12-02 07:04] LABS: Vancomycin, Trough Level 16.6 ug/mL (5.0-15.0)
[2022-12-02 07:07] LABS: International Normalized Ratio 2.8
--- NOTE | 2022-12-02 07:41 | PHA.PHARE_ITS ---
Consult Pharmacy has been consulted to manage selected antiobiotic: Vancomycin Type of Consult: Follow-up Suspected Infection: Skin/Soft tissue Prior Doses of Antibiotics Received/Current Regimen: Current dose is 1750mg iv q12h. Labs: Sodium 142 mmol/L (136-145) 12/02/22 06:30 Potassium 4.1 mmol/L (3.5-5.1) 12/02/22 06:30 Chloride 106 mmol/L (98-107) 12/02/22 06:30 Carbon Dioxide 30.0 mmol/L (21.0-32.0) 12/02/22 06:30 Anion Gap 6 (5-15) 12/02/22 06:30 BUN 17 mg/dL (7-18) 12/02/22 06:30 Creatinine 0.75 mg/dL (0.70-1.30) 12/02/22 06:30 Est GFR (MDRD) Af Amer 135 mL/min (>60) 12/02/22 06:30 Est GFR (MDRD) Non-Af 111 mL/min (>60) 12/02/22 06:30 BUN/Creatinine Ratio 22.8 RATIO (10-20) H 12/02/22 06:30 Glucose 112 mg/dL (74-106) H 12/02/22 06:30 Vancomycin Trough 16.6 ug/mL (5.0-15.0) H 12/02/22 06:30 Microbiology: Microbiology 11/30/22 15:50 Wound - Leg, Left Gram Stain - Final 11/30/22 15:50 Wound - Leg, Left Wound Culture - Preliminary No growth-Final to follow Weight used for dosin.5 kg Estimated Creatinine Clearance: 89 ml/min Goal Trough: 15-20 mcg/mL Pharmacy Plan for Drug Dosing: Trough today was 16.6 at 12.5 hrs post dose. This is within desired range of 15- 20 mcg/ml. Renal Cr reviewed at 0.75. Will continue same dose. A new trough ordered for tomorrow before another 4th dose per policy. Pharmacy Service will continue to monitor and adjust dosing as required. Follow-Up Labs: Trough Vancomycin - 2.24.23 @1830 before 1900 dose
--- NOTE | 2022-12-02 07:58 | PN.HOSP_ITS ---
Reason for Visit Reason for Visit: Diagnoses Unspecified severe protein-calorie malnutrition (11/30/22) Other chronic pain (11/30/22) Venous insufficiency (chronic) (peripheral) (11/30/22) Lymphedema, not elsewhere classified (11/30/22) Cutaneous abscess of left lower limb (11/30/22) Cutaneous abscess of limb, unspecified (11/30/22) Cellulitis of left lower limb (11/30/22) Cellulitis of unspecified part of limb (11/30/22) Non-pressure chronic ulcer of right calf with fat layer exposed (11/30/22) Non-pressure chronic ulcer of left calf with fat layer exposed (11/30/22) Unspecified fall, initial encounter (11/30/22) Subjective Subjective Asking about using his grounding pad. Objective Data Objective Data Vital Signs: Vital Signs Temp Pulse Resp BP Pulse Ox O2 Del Method 36.8 C 86 13 116/71 98 Room Air 12/02/22 02:29 12/02/22 02:29 12/02/22 02:29 12/02/22 02:29 12/02/22 02:29 12/02/22 02:29 Oxygen Delivery Method Room Air Weight: 112.5 kg Body Mass Index (BMI) 39.8 Intake & Output: Intake and Output for Last 24 Hours 11/30/22 12/01/22 12/02/22 23:59 23:59 23:59 Intake Total 590 / 590 3043 / 3043 200 / 200 Output Total 2200 / 2200 5750 / 5750 700 / 700 Balance -1610 / -1610 -2707 / -2707 -500 / -500 Lab / Micro Data Result Diagrams: 12/02/22 06:30 12/02/22 06:30 Labs: Laboratory Results - last 24 hr 12/01/22 06:10: Hemoglobin A1c 5.6 12/01/22 09:22: Phenytoin 7.5 L 12/02/22 06:30: PT 29.0 H, INR 2.8 12/02/22 06:30: Vancomycin Trough 16.6 H 12/02/22 06:30: WBC 5.2, RBC 3.92 L, Hgb 12.7 L, Hct 38.0 L, MCV 96.9 H, MCH 32.4 H, MCHC 33.4, RDW Std Deviation 50.8 H, RDW Coeff of [place] 14.2, Plt Count 327, MPV 8.8, Immature Gran % (Auto) 0.400, Neut % (Auto) 53.1, Lymph % (Auto) 28.2, [place] % (Auto) 12.9 H, Eos % (Auto) 4.8, Baso % (Auto) 0.6, Absolute Neuts (auto) 2.8, Absolute Lymphs (auto) 1.47, Nucleated RBC % 0 12/02/22 06:30: Sodium 142, Potassium 4.1, Chloride 106, Carbon Dioxide 30.0, Anion Gap 6, BUN 17, Creatinine 0.75, Estim Creat Clear Calc 88.61, Est GFR (MDRD) Af Amer 135, Est GFR (MDRD) Non-Af 111, BUN/Creatinine Ratio 22.8 H, Glucose 112 H, Calcium 8.9 Micro: Microbiology 11/30/22 15:50 Wound - Leg, Left Gram Stain - Final 11/30/22 15:50 Wound - Leg, Left Wound Culture - Preliminary No growth-Final to follow Radiography Diagnostic Testing: Radiology Impression Tibia/Fibula X-Ray 12/01/22 08:00 IMPRESSION: Diffuse soft tissue swelling Electronically Signed: Timo Durham MD at 14:51 EST , Tibia/Fibula X-Ray 12/01/22 08:00 IMPRESSION: Soft tissue ulcerations. No bony abnormality is seen. Electronically Signed: Timo Durham MD at 14:51 EST , Venous Doppler Study 12/01/22 08:00 Interpretation Summary Chronic deep vein thrombosis is noted in the right common femoral vein, right femoral vein. Chronic deep vein thrombosis is noted in the left femoral vein, left popliteal vein Enlarged left inguinal lymph node noted measuring approximately 4.81cm x 1.10cm. Positive for reflux in the right common femoral vein Ordering Physician: Jason Carranza Referring Physician: Patricia Garcia Performed By: Gary Soto, DUNAET Physical Exam Const alert and no apparent distress HEENT head/scalp atraumatic Resp normal respiratory effort, no retractions, no use of accessory muscles and clear to auscultation bilaterally Cardio regular rate, regular rhythm, S1 normal heart sound and S2 normal heart sound GI normal to inspection, nondistended, normoactive bowel sounds, soft to palpation, non-tender and non-distended Extremity Extremity Narrative: bilateral LE wrapped--did not remove. Assessment & Plan Assessment/Plan (1) Cellulitis and abscess of leg: PLAN: Unclear if this is actual cellulitis, but given his reported sensitivity, will continue to treat. Wound culture and blood cultures currently pending Antibiotics w vancomycin and Zosyn. Wound care nurse consult. (2) Lymphedema: PLAN: Bilateral lower extremity edema and bilateral lymphedema: Patient on oral furosemide at home probably not working. Started on IV furosemide 40 mg every 12 hourly. Continue as vitals and renal function remained stable. 2D echo showed EF of 70%. Enlarged left atrium. Diastolic function indeterminate. Duplex notes chronic DVT in the right common femoral vein, right femoral vein, chronic DVT in the left femoral vein and left popliteal vein. Enlarged left inguinal lymph node measuring 4.8 x 1.1 cm. Positive for reflux in the right common femoral vein. (3) Fall: PLAN: Slip and fall and small laceration of right supraorbital margin: Lacerated wound was stitched by ED physician. No loss of consciousness. Patient had CT brain which showed old left infarct of right thalamus, CT C-spine reported multilevel degenerative changes. Right Shoulder x-ray degenerative changes no acute abnormality. Abdominal pelvis CT shows mildly distended GB with multiple gallstones. IVC filter. Prostatic enlargement with indentation of bladder base. 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 On exam, patient was complaining about me touching his leg when I was not even close to touching his leg. He then stated it was because I was touching the absorbant dressing that his leg was resting on. I then made careful not when I touched that dressing that I was not actually altering it on his leg and he was complaining of pain. So his exam seem to be not consistent and proportion to exam from what I was able to gather. Continue with methadone. PLAN: Plan Chronic conditions * History of pulmonary embolism: Patient on warfarin, continued. INR therapeutic. Patient had IVC filter as reported in his abdomen pelvis CT. Monitor INR daily. * Stroke in 2008 with restricted mobility: PT and OT ordered. No new finding pertaining to stroke. * hypertension, resume lisinopril * chronic alcohol use, * lupus, on no chronic meds * seizure: Continue phenytoin. Check phenytoin level * Chronic pain: Continue to hold methadone * Self-reported electromagnetic sensitivity. Patient wanted to use his blanket to help him with the electromagnetic discharges that are pubic it was at a hospital or any facility with electricity. The device actually plugs and to allegedly absorb all electromagnetic rays. Given my unfamiliarity with this device. It told nursing that that he could wear it but not for the be plugged in so does not potentially interfere with any of the medical devices. VTE prophylaxis: On warfarin. Charges/Coding Visit Charges Inpatient E&M: 95588 Subs Hosp L2
[2022-12-02 08:14] VITALS: BP 100/68; PULSE 85; RESP 18; TEMP 36.7; O2SAT 100
[2022-12-02] MEDS: Lisinopril 10 MG Tablet PO ×2 (08:19→21:00)
[2022-12-02] MEDS: Senna/Docusate Sodium 1 Tablet 2 TABLET PO ×2 (08:19→21:01)
[2022-12-02] MEDS: Acetaminophen 325 MG Tablet 650 MG PO ×3 (08:20→21:00)
[2022-12-02] MEDS: Phenytoin Na 100 MG Capsule 200 MG PO (08:20)
[2022-12-02] MEDS: Baclofen 10 MG Tablet PO ×3 (08:20→20:59)
[2022-12-02] MEDS: Furosemide 40 MG/4 ML Vial IV ×2 (08:20→17:31)
[2022-12-02] MEDS: 0.9% Saline Lock 10 ML Syringe IV ×2 (08:31→17:32)
[2022-12-02 08:40] VITALS: O2SAT 96
--- NOTE | 2022-12-02 08:45 | WOUNDNOTE ---
Dressings to bilateral lower legs are dry and intact. plan is to change the dressings again tomorrow with podiatry. pt aware the dressings will remain in place today.
[2022-12-02 14:29] VITALS: BP 104/67; PULSE 91; RESP 18; TEMP 36.9; O2SAT 99
[2022-12-02 20:00] VITALS: BP 109/68; PULSE 92; RESP 16; TEMP 36.8; O2SAT 97
[2022-12-02] MEDS: Phenytoin Na 100 MG Capsule PO (20:59)
[2022-12-02] MEDS: oxyCODONE 5 MG Tablet PO (23:07)
[2022-12-03 02:04] VITALS: BP 99/46; PULSE 90; RESP 15; TEMP 37.2; O2SAT 94
[2022-12-03 02:18] VITALS: BMI 39.6
[2022-12-03] MEDS: Baclofen 10 MG Tablet PO ×3 (04:57→18:44)
[2022-12-03] MEDS: Acetaminophen 325 MG Tablet 650 MG PO ×3 (04:57→18:44)
[2022-12-03] MEDS: Pregabalin 75 MG Capsule PO ×3 (04:57→21:56)
[2022-12-03 05:52] LABS: Absolute Lymphocyte Count 1.53 X10^3/uL (0.83-4.51); Absolute Neutrophil Count 3.6 X10^3/uL (2.0-7.7); Basophil# 0.05 X10^3/uL; Basophil% 0.8 % (0-1); Eosinophil# 0.43 X10^3/uL; Eosinophils% 6.8 % (0-5); Hematocrit 36.5 % (40-54); Hemoglobin 11.9 g/dL (13.0-16.5); Lymphocyte # 1.53 X10^3/ul (0.83-4.51); Lymphocyte % 24.1 % (19-41); Mean Corp Hgb Conc 32.6 g/dL (32-36); Mean Corpuscular Hgb 31.9 pg (27.0-32.0); Mean Corpuscular Volume 97.9 fL (80-94); Mean Platelet Vol. 8.8 fl (6.2-12.0); Monocyte# 0.73 X10^3/uL; Monocyte% 11.5 % (0-10); NRBC Flagged by Analyzer 0 % (0-5); Neutrophil # 3.58 X10^3/uL (2.7-7.7); Neutrophil % 56.5 % (47-70); Platelet Count 340 K/mm3 (150-450); RBC Distribution Width CV 14.1 % (11.6-14.6); RBC Distribution Width SD 50.4 fl (35.1-43.9); Red Blood Count 3.73 M/mm3 (4.6-6.2); White Blood Count 6.3 K/mm3 (4.4-11.0)
[2022-12-03 05:58] LABS: International Normalized Ratio 2.2; Prothrombin Time (Protime)PT. 24.1 SECONDS (11.7-14.9)
[2022-12-03 06:28] LABS: Anion Gap 5 (5-15); BUN 20 mg/dL (7-18); BUN/Creat Ratio 28.1 RATIO (10-20); Calcium,Total 8.7 mg/dL (8.5-10.1); Chloride 105 mmol/L (98-107); Creatinine, Serum 0.71 mg/dL (0.70-1.30); EST Glomerular Filtration Rate 118 mL/min (>60); Est Glom Filt Rate - Afr Amer 143 mL/min (>60); Glucose 102 mg/dL (74-106); Potassium 3.6 mmol/L (3.5-5.1); Sodium Level 137 mmol/L (136-145)
--- NOTE | 2022-12-03 06:57 | PCM.PROGNOTE ---
Subjective Subjective Patient was seen this morning for follow up on bilateral leg ulcerations. He is resting in bed, no new complaints. No fever. Objective Data Objective Data Vital Signs: Vital Signs Temp Pulse Resp BP Pulse Ox O2 Del Method 98.9 F 90 15 99/46 L 94 Room Air 12/03/22 02:04 12/03/22 02:04 12/03/22 02:04 12/03/22 02:04 12/03/22 02:04 12/03/22 02:04 Oxygen Delivery Method Room Air Weight: 112 kg Body Mass Index (BMI) 39.6 Intake & Output: Intake and Output for Last 24 Hours 12/01/22 12/02/22 12/03/22 23:59 23:59 23:59 Intake Total 3043 / 3043 1733.5 / 2133.5 450 / 450 Output Total 5750 / 5750 2700 / 2700 1100 / 1100 Balance -2707 / -2707 -966.5 / -566.5 -650 / -650 Lab / Micro Data Result Diagrams: 12/03/22 04:34 12/03/22 04:34 Labs: Laboratory Results - last 24 hr 12/02/22 06:30: PT 29.0 H, INR 2.8 12/02/22 06:30: Vancomycin Trough 16.6 H 12/02/22 06:30: WBC 5.2, RBC 3.92 L, Hgb 12.7 L, Hct 38.0 L, MCV 96.9 H, MCH 32.4 H, MCHC 33.4, RDW Std Deviation 50.8 H, RDW Coeff of [place] 14.2, Plt Count 327, MPV 8.8, Immature Gran % (Auto) 0.400, Neut % (Auto) 53.1, Lymph % (Auto) 28.2, [place] % (Auto) 12.9 H, Eos % (Auto) 4.8, Baso % (Auto) 0.6, Absolute Neuts (auto) 2.8, Absolute Lymphs (auto) 1.47, Nucleated RBC % 0 12/02/22 06:30: Sodium 142, Potassium 4.1, Chloride 106, Carbon Dioxide 30.0, Anion Gap 6, BUN 17, Creatinine 0.75, Estim Creat Clear Calc 88.61, Est GFR (MDRD) Af Amer 135, Est GFR (MDRD) Non-Af 111, BUN/Creatinine Ratio 22.8 H, Glucose 112 H, Calcium 8.9 12/03/22 04:34: PT 24.1 H, INR 2.2 12/03/22 04:34: WBC 6.3, RBC 3.73 L, Hgb 11.9 L, Hct 36.5 L, MCV 97.9 H, MCH 31.9, MCHC 32.6, RDW Std Deviation 50.4 H, RDW Coeff of [place] 14.1, Plt Count 340, MPV 8.8, Immature Gran % (Auto) 0.300, Neut % (Auto) 56.5, Lymph % (Auto) 24.1, [place] % (Auto) 11.5 H, Eos % (Auto) 6.8 H, Baso % (Auto) 0.8, Absolute Neuts (auto) 3.6, Absolute Lymphs (auto) 1.53, Nucleated RBC % 0 12/03/22 04:34: Sodium 137, Potassium 3.6, Chloride 105, Carbon Dioxide 27.0, Anion Gap 5, BUN 20 H, Creatinine 0.71, Estim Creat Clear Calc 93.60, Est GFR (MDRD) Af Amer 143, Est GFR (MDRD) Non-Af 118, BUN/Creatinine Ratio 28.1 H, Glucose 102, Calcium 8.7 Micro: Microbiology 11/30/22 15:50 Wound - Leg, Left Gram Stain - Final 11/30/22 15:50 Wound - Leg, Left Wound Culture - Preliminary Physical Exam Narrative Bilateral lower extremity venous ulcerations down to subcutaneous tissue layer - there is granular tissue, some fibrotic tissue in wound beds, margins are viable, no maloder, no fluctuance, no crepitus, no necrosis, there is diffuse LE venous stasis skin changes, there is no evidence of acute ischemia bilateral, CFT < 2 seconds to all toes. Very minimal to no cellulitis to leg, ankle or foot bilateral. Assessment & Plan Assessment/Plan (1) Cellulitis and abscess of left leg: PLAN: Exam performed. Clinically legs are improving. Today dressing was changed - continue with local wound care, compression therapy and leg elevation. Patient is on antibiotics as well. Podiatry will continue to follow - will see for next dressing change which will be on Tuesday.
[2022-12-03] MEDS: oxyCODONE 5 MG Tablet PO (07:27)
--- NOTE | 2022-12-03 07:40 | PN.HOSP_ITS ---
Reason for Visit Reason for Visit: Diagnoses Unspecified severe protein-calorie malnutrition (11/30/22) Other chronic pain (11/30/22) Venous insufficiency (chronic) (peripheral) (11/30/22) Lymphedema, not elsewhere classified (11/30/22) Cutaneous abscess of left lower limb (11/30/22) Cutaneous abscess of limb, unspecified (11/30/22) Cellulitis of left lower limb (11/30/22) Cellulitis of unspecified part of limb (11/30/22) Non-pressure chronic ulcer of right calf with fat layer exposed (11/30/22) Non-pressure chronic ulcer of left calf with fat layer exposed (11/30/22) Unspecified fall, initial encounter (11/30/22) Subjective Subjective complains of right wrist pain. pain in legs particularly with the wraps. Objective Data Objective Data Vital Signs: Vital Signs Temp Pulse Resp BP Pulse Ox O2 Del Method 37.2 C 90 15 99/46 L 94 Room Air 12/03/22 02:04 12/03/22 02:04 12/03/22 02:04 12/03/22 02:04 12/03/22 02:04 12/03/22 02:04 Oxygen Delivery Method Room Air Weight: 112 kg Body Mass Index (BMI) 39.6 Intake & Output: Intake and Output for Last 24 Hours 12/01/22 12/02/22 12/03/22 23:59 23:59 23:59 Intake Total 3043 / 3043 1733.5 / 2133.5 450 / 450 Output Total 5750 / 5750 2700 / 2700 1100 / 1100 Balance -2707 / -2707 -966.5 / -566.5 -650 / -650 Lab / Micro Data Result Diagrams: 12/03/22 04:34 12/03/22 04:34 Labs: Laboratory Results - last 24 hr 12/03/22 04:34: PT 24.1 H, INR 2.2 12/03/22 04:34: WBC 6.3, RBC 3.73 L, Hgb 11.9 L, Hct 36.5 L, MCV 97.9 H, MCH 31.9, MCHC 32.6, RDW Std Deviation 50.4 H, RDW Coeff of [place] 14.1, Plt Count 340, MPV 8.8, Immature Gran % (Auto) 0.300, Neut % (Auto) 56.5, Lymph % (Auto) 24.1, [place] % (Auto) 11.5 H, Eos % (Auto) 6.8 H, Baso % (Auto) 0.8, Absolute Neuts (auto) 3.6, Absolute Lymphs (auto) 1.53, Nucleated RBC % 0 12/03/22 04:34: Sodium 137, Potassium 3.6, Chloride 105, Carbon Dioxide 27.0, Anion Gap 5, BUN 20 H, Creatinine 0.71, Estim Creat Clear Calc 93.60, Est GFR (MDRD) Af Amer 143, Est GFR (MDRD) Non-Af 118, BUN/Creatinine Ratio 28.1 H, Glucose 102, Calcium 8.7 Micro: Microbiology 11/30/22 15:50 Wound - Leg, Left Gram Stain - Final 11/30/22 15:50 Wound - Leg, Left Wound Culture - Preliminary Physical Exam Const alert and no apparent distress Resp normal respiratory effort, no retractions and no use of accessory muscles Cardio regular rate, regular rhythm, S1 normal heart sound and S2 normal heart sound GI normal to inspection, nondistended, normoactive bowel sounds, soft to palpation, non-tender and non-distended Extremity Extremity Narrative: swelling on dorsum of right hand. no infiltration. bilateral legs wrapped--did not remove. Psych affect normal Assessment & Plan Assessment/Plan (1) Cellulitis and abscess of leg: PLAN: Antibiotics w vancomycin and Zosyn. Wound care nurse consult. Cx growing out possible Pseudomonas species (2) Lymphedema: PLAN: Bilateral lower extremity edema and bilateral lymphedema: Patient on oral furosemide at home probably not working. Started on IV furosemide 40 mg every 12 hourly. Continue as vitals and renal function remained stable. 2D echo showed EF of 70%. Enlarged left atrium. Diastolic function indeterminate. Duplex notes chronic DVT in the right common femoral vein, right femoral vein, chronic DVT in the left femoral vein and left popliteal vein. Enlarged left inguinal lymph node measuring 4.8 x 1.1 cm. Positive for reflux in the right common femoral vein. (3) Fall: PLAN: Slip and fall and small laceration of right supraorbital margin: Lacerated wound was stitched by ED physician. No loss of consciousness. Patient had CT brain which showed old left infarct of right thalamus, CT C-spine reported multilevel degenerative changes. Right Shoulder x-ray degenerative changes no acute abnormality. Abdominal pelvis CT shows mildly distended GB with multiple gallstones. IVC filter. Prostatic enlargement with indentation of bladder base. 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 On exam, patient was complaining about me touching his leg when I was not even close to touching his leg. He then stated it was because I was touching the absorbant dressing that his leg was resting on. I then made careful not when I touched that dressing that I was not actually altering it on his leg and he was complaining of pain. So his exam seem to be not consistent and proportion to exam from what I was able to gather. Continue with methadone. PLAN: Plan Chronic conditions * History of pulmonary embolism: Patient on warfarin, continued. INR therapeutic. Patient had IVC filter as reported in his abdomen pelvis CT. Monitor INR daily. * Stroke in 2008 with restricted mobility: PT and OT ordered. No new finding pertaining to stroke. * hypertension, resume lisinopril * chronic alcohol use, * lupus, on no chronic meds * seizure: Continue phenytoin. Check phenytoin level * Chronic pain: Continue to hold methadone * Self-reported electromagnetic sensitivity. Patient wanted to use his blanket to help him with the electromagnetic discharges that are pubic it was at a hospital or any facility with electricity. The device actually plugs and to allegedly absorb all electromagnetic rays. Given my unfamiliarity with this device. It told nursing that that he could wear it but not for the be plugged in so does not potentially interfere with any of the medical devices. VTE prophylaxis: On warfarin. Charges/Coding Visit Charges Inpatient E&M: 80192 Subs Hosp L2
[2022-12-03 09:09] VITALS: O2SAT 96
[2022-12-03 09:15] VITALS: BP 116/73; PULSE 87; RESP 18; TEMP 36.9; O2SAT 97
[2022-12-03] MEDS: Furosemide 40 MG/4 ML Vial IV ×2 (09:56→17:55)
[2022-12-03] MEDS: Lisinopril 10 MG Tablet PO ×2 (09:56→21:57)
[2022-12-03] MEDS: Phenytoin Na 100 MG Capsule 200 MG PO (09:57)
[2022-12-03] MEDS: Senna/Docusate Sodium 1 Tablet 2 TABLET PO ×2 (09:57→21:56)
[2022-12-03] MEDS: 0.9% Saline Lock 10 ML Syringe IV ×2 (09:57→16:01)
[2022-12-03 14:43] VITALS: BP 102/60; PULSE 98; RESP 18; TEMP 37.1; O2SAT 94
[2022-12-03 19:45] LABS: Vancomycin, Trough Level 20.8 ug/mL (5.0-15.0)
--- NOTE | 2022-12-03 20:04 | PCM.RX.CS ---
Consult Pharmacy has been consulted to manage selected antiobiotic: Vancomycin Type of Consult: Follow-up Labs: Sodium 137 mmol/L (136-145) 12/03/22 04:34 Potassium 3.6 mmol/L (3.5-5.1) 12/03/22 04:34 Chloride 105 mmol/L (98-107) 12/03/22 04:34 Carbon Dioxide 27.0 mmol/L (21.0-32.0) 12/03/22 04:34 Anion Gap 5 (5-15) 12/03/22 04:34 BUN 20 mg/dL (7-18) H 12/03/22 04:34 Creatinine 0.71 mg/dL (0.70-1.30) 12/03/22 04:34 Est GFR (MDRD) Af Amer 143 mL/min (>60) 12/03/22 04:34 Est GFR (MDRD) Non-Af 118 mL/min (>60) 12/03/22 04:34 BUN/Creatinine Ratio 28.1 RATIO (10-20) H 12/03/22 04:34 Glucose 102 mg/dL (74-106) 12/03/22 04:34 Vancomycin Trough 20.8 ug/mL (5.0-15.0) H 12/03/22 18:23 Microbiology: Microbiology 11/30/22 15:50 Wound - Leg, Left Gram Stain - Final 11/30/22 15:50 Wound - Leg, Left Wound Culture - Preliminary GNR Poss Pseudomonas sp 11/30/22 15:50 Wound - Leg, Left Anaerobic Culture - Preliminary No growth in 48 hours. Goal Trough: 15-20 mcg/mL Pharmacy Plan for Drug Dosing: VANCOMYCIN LEVEL RECEIVED Current Vancomycin Dose: 1750MG IV Q12hr Number of Doses Received: several Vancomycin Level: 20.8 Hours Since Last Dose: 12.5hr Renal Function: 0.71 Renal Function Trend: stable Lab/Micro: BCx pending, WCx growing GNR Vancomycin Plan/Comments: Patient had a trough drawn which resulted in a value of 20.8 (Goal 15-20). Trough was drawn 1 hour late, and already hung this evening's dose. Will hold subsequent doses until trough is <20. Pending Level: *RANDOM* level 12/04/22 @1900 Pharmacy Service will continue to monitor and adjust dosing as required.
[2022-12-03] MEDS: Phenytoin Na 100 MG Capsule PO (21:56)
[2022-12-03 21:58] VITALS: BP 109/56; PULSE 94; RESP 16; TEMP 37.4; O2SAT 98
--- NOTE | 2022-12-04 01:17 | NURSING ---
pt setting off bed exit, staff in to assist. loan coordinator helping pt with urinal.
[2022-12-04] MEDS: Baclofen 10 MG Tablet PO ×3 (02:59→21:49)
[2022-12-04] MEDS: Acetaminophen 325 MG Tablet 650 MG PO ×4 (02:59→21:49)
[2022-12-04 03:06] VITALS: BP 118/63; PULSE 84; RESP 16; TEMP 36.7; O2SAT 97
[2022-12-04 04:16] VITALS: BMI 39.6
[2022-12-04] MEDS: Pregabalin 75 MG Capsule PO ×3 (06:17→21:49)
[2022-12-04 07:06] LABS: Absolute Lymphocyte Count 1.27 X10^3/uL (0.83-4.51); Absolute Neutrophil Count 3.2 X10^3/uL (2.0-7.7); Basophil# 0.05 X10^3/uL; Basophil% 0.9 % (0-1); Hematocrit 38.2 % (40-54); Hemoglobin 12.1 g/dL (13.0-16.5); Lymphocyte # 1.27 X10^3/ul (0.83-4.51); Lymphocyte % 22.3 % (19-41); Mean Corp Hgb Conc 31.7 g/dL (32-36); Mean Corpuscular Hgb 31.2 pg (27.0-32.0); Mean Corpuscular Volume 98.5 fL (80-94); Monocyte# 0.73 X10^3/uL; Monocyte% 12.8 % (0-10); NRBC Flagged by Analyzer 0 % (0-5); Neutrophil # 3.21 X10^3/uL (2.7-7.7); Neutrophil % 56.3 % (47-70); Platelet Count 360 K/mm3 (150-450); RBC Distribution Width CV 14.3 % (11.6-14.6); RBC Distribution Width SD 51.2 fl (35.1-43.9); Red Blood Count 3.88 M/mm3 (4.6-6.2); White Blood Count 5.7 K/mm3 (4.4-11.0)
[2022-12-04 07:12] LABS: International Normalized Ratio 1.9; Prothrombin Time (Protime)PT. 21.4 SECONDS (11.7-14.9)
--- NOTE | 2022-12-04 07:21 | PN.HOSP_ITS ---
Reason for Visit Reason for Visit: Diagnoses Unspecified severe protein-calorie malnutrition (11/30/22) Other chronic pain (11/30/22) Venous insufficiency (chronic) (peripheral) (11/30/22) Lymphedema, not elsewhere classified (11/30/22) Cutaneous abscess of left lower limb (11/30/22) Cutaneous abscess of limb, unspecified (11/30/22) Cellulitis of left lower limb (11/30/22) Cellulitis of unspecified part of limb (11/30/22) Non-pressure chronic ulcer of right calf with fat layer exposed (11/30/22) Non-pressure chronic ulcer of left calf with fat layer exposed (11/30/22) Unspecified fall, initial encounter (11/30/22) Subjective Subjective Still with pain right wrist and LE, but improved. Still feels better with his grounding pad on. Objective Data Objective Data Vital Signs: Vital Signs Temp Pulse Resp BP Pulse Ox O2 Del Method 36.7 C 84 16 118/63 97 Room Air 12/04/22 03:06 12/04/22 03:06 12/04/22 03:06 12/04/22 03:06 12/04/22 03:06 12/04/22 03:06 Oxygen Delivery Method Room Air Weight: 112 kg Body Mass Index (BMI) 39.6 Intake & Output: Intake and Output for Last 24 Hours 12/02/22 12/03/22 12/04/22 23:59 23:59 23:59 Intake Total 1733.5 / 2133.5 1831.00 / 1831.00 89 / 89 Output Total 2700 / 2700 2700 / 4300 2200 / 2200 Balance -966.5 / -566.5 -869.00 / -2469.00 -2111 / -2111 Lab / Micro Data Result Diagrams: 12/04/22 05:17 12/04/22 05:17 Labs: Laboratory Results - last 24 hr 12/03/22 18:23: Vancomycin Trough 20.8 H 12/04/22 05:17: WBC 5.7, RBC 3.88 L, Hgb 12.1 L, Hct 38.2 L, MCV 98.5 H, MCH 31.2, MCHC 31.7 L, RDW Std Deviation 51.2 H, RDW Coeff of [place] 14.3, Plt Count 360, MPV 9.0, Immature Gran % (Auto) 0.700, Neut % (Auto) 56.3, Lymph % (Auto) 22.3, [place] % (Auto) 12.8 H, Eos % (Auto) 7.0 H, Baso % (Auto) 0.9, Absolute Neuts (auto) 3.2, Absolute Lymphs (auto) 1.27, Nucleated RBC % 0 12/04/22 05:17: PT 21.4 H, INR 1.9 Micro: Microbiology 11/30/22 15:50 Wound - Leg, Left Gram Stain - Final 11/30/22 15:50 Wound - Leg, Left Wound Culture - Final Pseudomonas aeroginosa 11/30/22 15:50 Wound - Leg, Left Anaerobic Culture - Preliminary No growth in 48 hours. Physical Exam Const alert and no apparent distress Resp normal respiratory effort, no retractions, no use of accessory muscles and clear to auscultation bilaterally Cardio regular rate, regular rhythm, S1 normal heart sound and S2 normal heart sound Extremity Extremity Narrative: Distal swelling of the dorsum of his right wrist with tenderness palpation. Not erythematous. Bilateral lower extremities are wrapped, did not remove. Assessment & Plan Assessment/Plan (1) Cellulitis and abscess of leg: PLAN: Wound care nurse consult. Cx growing out Pseudomonas DC vancomycin. Has reported allergy ciprofloxacin and when she develops a rash would continue with pip/tazo through the . (2) Lymphedema: PLAN: Bilateral lower extremity edema and bilateral lymphedema: Patient on oral furosemide at home probably not working. Started on IV furosemide 40 mg every 12 hourly. Continue as vitals and renal function remained stable. 2D echo showed EF of 70%. Enlarged left atrium. Diastolic function indeterminate. Duplex notes chronic DVT in the right common femoral vein, right femoral vein, chronic DVT in the left femoral vein and left popliteal vein. Enlarged left inguinal lymph node measuring 4.8 x 1.1 cm. Positive for reflux in the right common femoral vein. (3) Fall: PLAN: Slip and fall and small laceration of right supraorbital margin: Lacerated wound was stitched by ED physician. No loss of consciousness. Patient had CT brain which showed old left infarct of right thalamus, CT C-spine reported multilevel degenerative changes. Right Shoulder x-ray degenerative changes no acute abnormality. Abdominal pelvis CT shows mildly distended GB with multiple gallstones. IVC filter. Prostatic enlargement with indentation of bladder base. 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 On exam, patient was complaining about me touching his leg when I was not even close to touching his leg. He then stated it was because I was touching the absorbant dressing that his leg was resting on. I then made careful not when I touched that dressing that I was not actually altering it on his leg and he was complaining of pain. So his exam seem to be not consistent and proportion to exam from what I was able to gather. Continue with methadone. PLAN: Plan Chronic conditions * History of pulmonary embolism: Patient on warfarin, continued. INR therape utic. Patient had IVC filter as reported in his abdomen pelvis CT. Monitor INR daily. * Stroke in 2008 with restricted mobility: PT and OT ordered. No new finding pertaining to stroke. * hypertension, resume lisinopril * chronic alcohol use, * lupus, on no chronic meds * seizure: Continue phenytoin. Check phenytoin level * Chronic pain: Continue to hold methadone * Self-reported electromagnetic sensitivity. Patient wanted to use his blanket to help him with the electromagnetic discharges that are pubic it was at a hospital or any facility with electricity. The device actually plugs and to allegedly absorb all electromagnetic rays. Given my unfamiliarity with this device. It told nursing that that he could wear it but not for the be plugged in so does not potentially interfere with any of the medical devices. VTE prophylaxis: On warfarin. Position: To be determined but likely Tuesday or Tuesday of next week. Patient to go home with home care. Charges/Coding Visit Charges Inpatient E&M: 09512 Subs Hosp L2
[2022-12-04 07:38] LABS: Anion Gap 4 (5-15); BUN 23 mg/dL (7-18); BUN/Creat Ratio 29.3 RATIO (10-20); Calcium,Total 8.7 mg/dL (8.5-10.1); Chloride 105 mmol/L (98-107); Creatinine, Serum 0.78 mg/dL (0.70-1.30); EST Glomerular Filtration Rate 105 mL/min (>60); Est Glom Filt Rate - Afr Amer 128 mL/min (>60); Glucose 104 mg/dL (74-106); Potassium 3.6 mmol/L (3.5-5.1); Sodium Level 138 mmol/L (136-145)
[2022-12-04] MEDS: Furosemide 40 MG/4 ML Vial IV ×2 (10:05→17:41)
[2022-12-04] MEDS: Phenytoin Na 100 MG Capsule 200 MG PO (10:05)
[2022-12-04] MEDS: Lisinopril 10 MG Tablet PO ×2 (10:05→21:55)
[2022-12-04] MEDS: Senna/Docusate Sodium 1 Tablet 2 TABLET PO ×2 (10:06→21:48)
[2022-12-04 10:14] VITALS: BP 108/64; PULSE 79; RESP 16; TEMP 36.7; O2SAT 97
[2022-12-04 13:42] VITALS: BP 92/53; PULSE 80; RESP 16; TEMP 36.6; O2SAT 94
[2022-12-04] MEDS: oxyCODONE 5 MG Tablet PO (15:07)
[2022-12-04] MEDS: 0.9% Saline Lock 10 ML Syringe IV (17:42)
[2022-12-04] MEDS: Phenytoin Na 100 MG Capsule PO (21:49)
[2022-12-04 22:05] VITALS: BP 102/60; PULSE 94; RESP 16; TEMP 37.9; O2SAT 94
[2022-12-05] MEDS: Acetaminophen 325 MG Tablet 650 MG PO ×2 (04:43→17:22)
[2022-12-05] MEDS: Baclofen 10 MG Tablet PO ×4 (04:43→21:20)
[2022-12-05] MEDS: Pregabalin 75 MG Capsule PO ×3 (04:43→21:20)
[2022-12-05 04:50] VITALS: BP 123/69; PULSE 77; RESP 16; TEMP 36.6; O2SAT 95
--- NOTE | 2022-12-05 07:16 | PN.HOSP_ITS ---
Reason for Visit Reason for Visit: Diagnoses Unspecified severe protein-calorie malnutrition (11/30/22) Other chronic pain (11/30/22) Venous insufficiency (chronic) (peripheral) (11/30/22) Lymphedema, not elsewhere classified (11/30/22) Cutaneous abscess of left lower limb (11/30/22) Cutaneous abscess of limb, unspecified (11/30/22) Cellulitis of left lower limb (11/30/22) Cellulitis of unspecified part of limb (11/30/22) Non-pressure chronic ulcer of right calf with fat layer exposed (11/30/22) Non-pressure chronic ulcer of left calf with fat layer exposed (11/30/22) Unspecified fall, initial encounter (11/30/22) Subjective Subjective Right wrist and legs feeling better. Asking about coQ10 for his leg pain as the pain is likely deep in his bones. Objective Data Objective Data Vital Signs: Vital Signs Temp Pulse Resp BP Pulse Ox O2 Del Method 36.6 C 77 16 123/69 H 95 Room Air 12/05/22 04:50 12/05/22 04:50 12/05/22 04:50 12/05/22 04:50 12/05/22 04:50 12/05/22 04:50 Oxygen Delivery Method Room Air Weight: 112 kg Body Mass Index (BMI) 39.6 Intake & Output: Intake and Output for Last 24 Hours 12/03/22 12/04/22 12/05/22 23:59 23:59 23:59 Intake Total 1831.00 / 1831.00 424.75 / 424.75 93.75 / 93.75 Output Total 2700 / 4300 4300 / 4300 1100 / 1100 Balance -869.00 / -2469.00 -3875.25 / -3875.25 -1006.25 / -1006.25 Lab / Micro Data Result Diagrams: 12/04/22 05:17 12/04/22 05:17 Labs: Laboratory Results - last 24 hr 12/04/22 05:17: Sodium 138, Potassium 3.6, Chloride 105, Carbon Dioxide 29.0, Anion Gap 4 L, BUN 23 H, Creatinine 0.78, Estim Creat Clear Calc 85.20, Est GFR (MDRD) Af Amer 128, Est GFR (MDRD) Non-Af 105, BUN/Creatinine Ratio 29.3 H, Glucose 104, Calcium 8.7 Micro: Microbiology 11/30/22 14:35 Blood Culture (Wb) - Right Hand Blood Culture - Preliminary No growth in 48 hours. 11/30/22 14:25 Blood Culture (Wb) - Anticubital Right Blood Culture - Preliminary No growth in 48 hours. 11/30/22 15:50 Wound - Leg, Left Gram Stain - Final 11/30/22 15:50 Wound - Leg, Left Wound Culture - Final Pseudomonas aeroginosa 11/30/22 15:50 Wound - Leg, Left Anaerobic Culture - Preliminary No growth in 48 hours. Physical Exam Const alert and no apparent distress Resp normal respiratory effort, no retractions, no use of accessory muscles and clear to auscultation bilaterally Cardio regular rate, regular rhythm, S1 normal heart sound and S2 normal heart sound GI normal to inspection, nondistended, normoactive bowel sounds Extremity Extremity Narrative: bilateral legs wrapped--did not remove. right wrist swelling improved. Assessment & Plan Assessment/Plan (1) Cellulitis and abscess of leg: PLAN: Wound care nurse consult. Cx growing out Pseudomonas DC vancomycin. Has reported allergy ciprofloxacin and when she develops a rash would continue with pip/tazo through AM on the . (2) Lymphedema: PLAN: Bilateral lower extremity edema and bilateral lymphedema: Patient on oral furosemide at home probably not working. Started on IV furosemide 40 mg every 12 hourly. Continue as vitals and renal function remained stable. 2D echo showed EF of 70%. Enlarged left atrium. Diastolic function indeterminate. Duplex notes chronic DVT in the right common femoral vein, right femoral vein, chronic DVT in the left femoral vein and left popliteal vein. Enlarged left inguinal lymph node measuring 4.8 x 1.1 cm. Positive for reflux in the right common femoral vein. (3) Fall: PLAN: Slip and fall and small laceration of right supraorbital margin: Lacerated wound was stitched by ED physician. No loss of consciousness. Patient had CT brain which showed old left infarct of right thalamus, CT C-spine reported multilevel degenerative changes. Right Shoulder x-ray degenerative changes no acute abnormality. Abdominal pelvis CT shows mildly distended GB with multiple gallstones. IVC filter. Prostatic enlargement with indentation of bladder base. 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 On exam, patient was complaining about me touching his leg when I was not even close to touching his leg. He then stated it was because I was touching the absorbant dressing that his leg was resting on. I then made careful not when I touched that dressing that I was not actually altering it on his leg and he was complaining of pain. So his exam seem to be not consistent and proportion to exam from what I was able to gather. Continue with methadone. PLAN: Plan Chronic conditions * History of pulmonary embolism: Patient on warfarin, continued. INR therapeutic. Patient had IVC filter as reported in his abdomen pelvis CT. Monitor INR daily. * Stroke in 2008 with restricted mobility: PT and OT ordered. No new finding pertaining to stroke. * hypertension, resume lisinopril * chronic alcohol use, * lupus, on no chronic meds * seizure: Continue phenytoin. Check phenytoin level * Chronic pain: Continue to hold methadone * Self-reported electromagnetic sensitivity. Patient wanted to use his blanket to help him with the electromagnetic discharges that are pubic it was at a hospital or any facility with electricity. The device actually plugs and to allegedly absorb all electromagnetic rays. Given my unfamiliarity with this device. It told nursing that that he could wear it but not for the be plugged in so does not potentially interfere with any of the medical devices. VTE prophylaxis: On warfarin. Position: Patient has completed IV antibiotics. Patient's last dose of pip/tazo is 12/07 at 10am. Charges/Coding Visit Charges Inpatient E&M: 48893 Subs Hosp L2
[2022-12-05] MEDS: 0.9% Saline Lock 10 ML Syringe IV ×3 (08:27→17:22)
[2022-12-05] MEDS: HYDROmorphone 0.5 MG/0.5 ML SYRINGE IV (08:28)
--- NOTE | 2022-12-05 09:00 | PCM.PROGNOTE ---
Subjective Subjective Patient was seen this morning for follow up on leg ulcers. Cultures grew pseudomonas. No complaints of fever, chills, nausea or vomiting. Objective Data Objective Data Vital Signs: Vital Signs Temp Pulse Resp BP Pulse Ox O2 Del Method 97.8 F 77 16 123/69 H 95 Room Air 12/05/22 04:50 12/05/22 04:50 12/05/22 04:50 12/05/22 04:50 12/05/22 04:50 12/05/22 04:50 Oxygen Delivery Method Room Air Weight: 112 kg Body Mass Index (BMI) 39.6 Intake & Output: Intake and Output for Last 24 Hours 12/03/22 12/04/22 12/05/22 23:59 23:59 23:59 Intake Total 1831.00 / 1831.00 424.75 / 424.75 93.75 / 93.75 Output Total 2700 / 4300 4300 / 4300 1100 / 1100 Balance -869.00 / -2469.00 -3875.25 / -3875.25 -1006.25 / -1006.25 Lab / Micro Data Result Diagrams: 12/04/22 05:17 12/04/22 05:17 Micro: Microbiology 11/30/22 14:35 Blood Culture (Wb) - Right Hand Blood Culture - Preliminary No growth in 48 hours. 11/30/22 14:25 Blood Culture (Wb) - Anticubital Right Blood Culture - Preliminary No growth in 48 hours. 11/30/22 15:50 Wound - Leg, Left Gram Stain - Final 11/30/22 15:50 Wound - Leg, Left Wound Culture - Final Pseudomonas aeroginosa 11/30/22 15:50 Wound - Leg, Left Anaerobic Culture - Preliminary No growth in 48 hours. Physical Exam Narrative Bilateral lower extremity venous ulcerations down to subcutaneous tissue layer - there is granular tissue, some fibrotic tissue in wound beds, margins are viable, no maloder, no fluctuance, no crepitus, no necrosis - ulcers improving, there is diffuse LE venous stasis skin changes, there is no evidence of acute ischemia bilateral, CFT < 2 seconds to all toes. No cellulitis to leg, ankle or foot bilateral. Assessment & Plan Assessment/Plan (1) Cellulitis and abscess of left leg: PLAN: Exam performed. Clinically legs continue to improve. Today dressing was changed - cleansed with normal saline soln, continue with local wound care aqua cell ag, gauze, abd pads, kerlix, compression therapy and leg elevation. Patient is on antibiotics as well - Zosyn - cultures grew pseudomonas. Podiatry will continue to follow - will see for next dressing change which will be on Tuesday.
[2022-12-05 09:55] VITALS: BP 122/64; PULSE 81; RESP 16; TEMP 36.7; O2SAT 96
[2022-12-05] MEDS: Furosemide 40 MG/4 ML Vial IV ×2 (10:15→17:20)
[2022-12-05] MEDS: Phenytoin Na 100 MG Capsule 200 MG PO (10:15)
[2022-12-05] MEDS: Senna/Docusate Sodium 1 Tablet 2 TABLET PO ×2 (10:15→21:20)
[2022-12-05] MEDS: Lisinopril 10 MG Tablet PO ×2 (10:15→21:21)
[2022-12-05 14:18] VITALS: BP 96/69; PULSE 84; RESP 16; TEMP 37; O2SAT 96
[2022-12-05 20:28] VITALS: BP 106/72; PULSE 96; RESP 18; TEMP 36.7; O2SAT 96
[2022-12-05] MEDS: Phenytoin Na 100 MG Capsule PO (21:19)
[2022-12-06] VITALS (7 sets, daily range): BP systolic 103–135; BP diastolic 64–74; PULSE 75–95; RESP 14–18; TEMP 36.5–37.2; O2SAT 94–100; BMI 39.3
[2022-12-06] MEDS: Acetaminophen 325 MG Tablet 650 MG PO ×3 (01:22→17:24)
[2022-12-06] MEDS: HYDROmorphone 0.5 MG/0.5 ML SYRINGE IV (01:22)
[2022-12-06] MEDS: Baclofen 10 MG Tablet PO ×3 (05:11→21:39)
[2022-12-06] MEDS: Pregabalin 75 MG Capsule PO ×3 (05:11→21:39)
[2022-12-06 05:43] LABS: Absolute Lymphocyte Count 1.37 X10^3/uL (0.83-4.51); Absolute Neutrophil Count 2.9 X10^3/uL (2.0-7.7); Basophil# 0.06 X10^3/uL; Basophil% 1.1 % (0-1); Eosinophil# 0.43 X10^3/uL; Eosinophils% 7.6 % (0-5); Hematocrit 38.9 % (40-54); Hemoglobin 12.7 g/dL (13.0-16.5); Lymphocyte # 1.37 X10^3/ul (0.83-4.51); Lymphocyte % 24.3 % (19-41); Mean Corp Hgb Conc 32.6 g/dL (32-36); Mean Corpuscular Hgb 31.7 pg (27.0-32.0); Monocyte# 0.83 X10^3/uL; Monocyte% 14.7 % (0-10); NRBC Flagged by Analyzer 0 % (0-5); Neutrophil # 2.88 X10^3/uL (2.7-7.7); Neutrophil % 51.2 % (47-70); Platelet Count 321 K/mm3 (150-450); RBC Distribution Width CV 14.1 % (11.6-14.6); RBC Distribution Width SD 50.1 fl (35.1-43.9); Red Blood Count 4.01 M/mm3 (4.6-6.2); White Blood Count 5.6 K/mm3 (4.4-11.0)
[2022-12-06 06:34] LABS: BUN 27 mg/dL (7-18); BUN/Creat Ratio 37.9 RATIO (10-20); Calcium,Total 8.7 mg/dL (8.5-10.1); Creatinine, Serum 0.71 mg/dL (0.70-1.30); EST Glomerular Filtration Rate 118 mL/min (>60); Est Glom Filt Rate - Afr Amer 142 mL/min (>60); Glucose 105 mg/dL (74-106); Sodium Level 136 mmol/L (136-145)
[2022-12-06 06:35] LABS: Anion Gap 5 (5-15); Chloride 102 mmol/L (98-107); Potassium 3.6 mmol/L (3.5-5.1)
--- NOTE | 2022-12-06 08:10 | PN.HOSP_ITS ---
Reason for Visit Reason for Visit: Diagnoses Unspecified severe protein-calorie malnutrition (11/30/22) Other chronic pain (11/30/22) Venous insufficiency (chronic) (peripheral) (11/30/22) Lymphedema, not elsewhere classified (11/30/22) Cutaneous abscess of left lower limb (11/30/22) Cutaneous abscess of limb, unspecified (11/30/22) Cellulitis of left lower limb (11/30/22) Cellulitis of unspecified part of limb (11/30/22) Non-pressure chronic ulcer of right calf with fat layer exposed (11/30/22) Non-pressure chronic ulcer of left calf with fat layer exposed (11/30/22) Unspecified fall, initial encounter (11/30/22) Subjective Subjective See message regarding patient complaining of some left-sided facial numbness. Went to evaluate patient when he reported numbness on the lower left portion of his face including his tongue and hard palate with some pain behind his left ear, has chronic weakness in left upper and lower extremities due to previous stroke. Poor historian but ultimately told multiple people that he did have new onset numbness. Neuro exam remarkable for slightly decreased strength in left upper and lower extremities which she reported was consistent with prior stroke as well as decreased sensation in lower half of left face. Stroke call, CT head and CTA head and neck without large vessel occlusion or acute stroke noted, stroke work-up obtained. Patient does have some pain in his legs which are fairly chronic and had no other changes or concerns at time of exam Objective Data Objective Data Vital Signs: Vital Signs Temp Pulse Resp BP Pulse Ox O2 Del Method 97.7 F L 75 18 115/74 97 Room Air 12/06/22 08:00 12/06/22 08:00 12/06/22 08:00 12/06/22 08:00 12/06/22 08:00 12/06/22 08:00 Oxygen Delivery Method Room Air Weight: 111 kg Body Mass Index (BMI) 39.3 Intake & Output: Intake and Output for Last 24 Hours 12/04/22 12/05/22 12/06/22 23:59 23:59 23:59 Intake Total 424.75 / 424.75 193.75 / 193.75 50 / 50 Output Total 4300 / 4300 6800 / 6800 800 / 800 Balance -3875.25 / -3875.25 -6606.25 / -6606.25 -750 / -750 Lab / Micro Data Result Diagrams: 12/06/22 12:55 12/06/22 12:55 Labs: Laboratory Results - last 24 hr 12/06/22 04:35: WBC 5.6, RBC 4.01 L, Hgb 12.7 L, Hct 38.9 L, MCV 97.0 H, MCH 31.7, MCHC 32.6, RDW Std Deviation 50.1 H, RDW Coeff of [place] 14.1, Plt Count 321, MPV 9.0, Immature Gran % (Auto) 1.100 H, Neut % (Auto) 51.2, Lymph % (Auto) 24.3, [place] % (Auto) 14.7 H, Eos % (Auto) 7.6 H, Baso % (Auto) 1.1 H, Absolute Neuts (auto) 2.9, Absolute Lymphs (auto) 1.37, Nucleated RBC % 0 12/06/22 04:35: Sodium 136, Potassium 3.6, Chloride 102, Carbon Dioxide 29.0, An ion Gap 5, BUN 27 H, Creatinine 0.71, Estim Creat Clear Calc 93.60, Est GFR ( MDRD) Af Amer 142, Est GFR (MDRD) Non-Af 118, BUN/Creatinine Ratio 37.9 H, Gl ucose 105, Calcium 8.7 Micro: Microbiology 11/30/22 15:50 Wound - Leg, Left Gram Stain - Final 11/30/22 15:50 Wound - Leg, Left Wound Culture - Final Pseudomonas aeruginosa 11/30/22 15:50 Wound - Leg, Left Anaerobic Culture - Final No anaerobic bacteria isolated. 11/30/22 14:35 Blood Culture (Wb) - Right Hand Blood Culture - Final No growth in 5 days. 11/30/22 14:25 Blood Culture (Wb) - Anticubital Right Blood Culture - Final No growth in 5 days. Physical Exam Narrative General: Alert, oriented, no apparent distress HEENT: Atraumatic, normocephalic Eyes: Anicteric, normal conjunctiva, pupils equal round reactive to light, extraocular movements intact Neck: Supple Respiratory: Clear to auscultation bilaterally, normal respiratory effort Cardiovascular: Regular rate and rhythm GI: Soft, nontender, nondistended Extremities: No edema Musculoskeletal: Moving all extremities, 5 out of 5 strength in right upper and lower extremities with 4+ in left upper and lower extremities Neuro: Cranial nerves II through XII intact only abnormality with subjective decrease in sensation over left side of face, [id number] without significant difficulty Skin: Chronic leg changes Psych: Cooperative Assessment & Plan Assessment/Plan (1) Cellulitis and abscess of left leg: PLAN: Plan 67-year-old male with 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 #Facial numbness -Given distribution and his history had stroke call, CT head no acute changes, CTA with 70% right internal carotid stenosis -We will obtain MRI -On Coumadin, INR 1.3 today though was therapeutic on admission, will adjust dosing -INR 1.3, total weekly dose is 31 and based on the RE-LY trial algorithm his dosage was increased by 15 %/week so he was changed to 5 mg daily, will start on Lovenox for DVT prophylaxis until INR is therapeutic as he is not a good candidate for SCDs -Echocardiogram 11/30/2022 with EF 70%, left atrium mildly enlarged, trivial mitral valve insufficiency, diastolic function indeterminate, will repeat limited echo for bubble study -change level of care to telemetry, [facility] every 4 hours -Permissive hypertension -Has listed allergies to statins, statin held -lipid panel in AM -pt/ot/speech #Bilateral leg cellulitis with abscess of left leg in setting of bilateral lymphedema with venous stasis dermatitis and ulceration -Follows with wound clinic and last seen on 11/26 where he was referred to ED -Wound culture grew Pseudomonas, vancomycin discontinued -Podiatry following -Zosyn through the -Wound care nurse -Was on Lasix at home orally which was suspected to not be working and he was changed to IV Lasix here, no known history of heart disease, echo on this admission with an EF of 70% with enlarged left atrium and indeterminate diastolic dysfunction -BUN and bicarb beginning to increase inc, will change back to 40 of Lasix p.o. in the a.m. and 20 at lunch #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 and recent fall -Had stitches to right supraorbital margin in ED, CT in ED showed old infarct of thalamus and CT C-spine with multilevel degenerative changes -Coumadin -PT/OT -See above for interval history #History of VTE -Has history of IVC filter which was noted on his abdominal CT -Duplex of the leg noted chronic DVT in right common femoral vein, right femoral vein, chronic DVT in left femoral vein and left popliteal vein -On Coumadin, trend INR #History of seizure disorder -Continue phenytoin #Severe protein calorie malnutrition -Prealbumin 16 -Nutrition consult, supplements #Chronic pain 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 Does also have IVC filter of note Mimi Shahid MD Time spent in the patient's overall evaluation,decision-making process, review of diagnostic data, adjustment of management, discussion with other providers, nursing nursing and ancillary staff involved in patient's care documentation,70 Minutes Charges/Coding Visit Charges Inpatient E&M: 86058 Subs Hosp L3
[2022-12-06] MEDS: Phenytoin Na 100 MG Capsule 200 MG PO (08:16)
[2022-12-06] MEDS: Lisinopril 10 MG Tablet PO (08:16)
[2022-12-06] MEDS: Senna/Docusate Sodium 1 Tablet 2 TABLET PO ×2 (08:16→21:39)
[2022-12-06] MEDS: oxyCODONE 5 MG Tablet PO ×2 (08:16→23:52)
[2022-12-06] MEDS: 0.9% Saline Lock 10 ML Syringe IV (08:17)
[2022-12-06] MEDS: Furosemide 40 MG/4 ML Vial IV (08:17)
--- NOTE | 2022-12-06 08:49 | WOUNDNOTE ---
Dressings to bilateral lower legs are D&I. dressings were changed by Dr Collado yesterday. orders for every other day changes. next change scheduled for tomorrow 12/07/22.
--- NOTE | 2022-12-06 12:17 | CT_ITS ---
We are attempting to reach an attending provider to discuss findings. An addendum with communication details will be sent when the communication is complete. STUDY: CT BRAIN WITHOUT CONTRAST REASON FOR EXAM: Male, 67 years old. Stroke alert. Left-sided weakness. History of seizures. RADIATION DOSAGE (If Supplied By Facility): CTDIvol = ( 44.99 ) mGy, DLP = ( 812.98 ) mGycm TECHNIQUE: Transaxial CT imaging of the brain was performed without administration of intravenous contrast material. Individualized dose optimization techniques were used for this CT. COMPARISON: Comparison is made with prior study dated 11/30/2022. FINDINGS: Normal soft tissue structures. Normal calvarium. There is mild cerebral atrophy with widening of the extra-axial spaces and ventricular dilatation. Normal white matter tracts of the cerebral hemispheres. Normal basal ganglia and thalami. Normal brainstem. Normal cerebellum. There is no intracranial hemorrhage. There are no findings of an acute ischemic infarction. Mild degree of mucosal thickening of the ethmoid sinuses bilaterally. CT/Brain/Head without Contrast IMPRESSION: Chronic involutional changes of the brain. Mild degree of mucosal thickening of the ethmoid sinuses. Electronically Signed: Timo Durham MD at 13:10 EST ,
--- NOTE | 2022-12-06 12:17 | CT_ITS ---
STUDY: CTA HEAD AND NECK WITH CONTRAST REASON FOR EXAM: Male, 67 years old. Concern for cva RADIATION DOSAGE (If Supplied By Facility): CTDIvol = ( 22.45 ) mGy, DLP = ( 767.41 ) mGycm TECHNIQUE: CT angiography was performed with a multi-detector CT scanner. Data acquisition was obtained from the skull base through the vertex following intravenous administration of IV 100mL Isovue-370. MIP images were reconstructed from the axial data set. Post-processing of the angiographic images was performed, with multiplanar reformation and 3D reconstruction. Individualized dose optimization techniques were used for this CT. COMPARISON: No relevant priors. FINDINGS: Normal bilateral petrous carotid arteries. There is calcified plaque formation of the right cavernous carotid artery, without a cross-sectional luminal stenosis. There is calcified plaque formation of the left cavernous carotid artery, without a cross-sectional luminal stenosis. Normal right A1 segments of the anterior cerebral artery. Normal left A1 segments of the anterior cerebral artery. Normal intact anterior communicating artery (ACOM). Normal bilateral A2 segments of the anterior cerebral arteries. Normal right M1 and M2 segments of the middle cerebral arteries, with a normal M1 bifurcation. Normal left M1 and M2 segments of the middle cerebral arteries, with a normal M1 bifurcation. Normal right posterior communicating artery (PCOM). Normal left posterior communicating artery (PCOM). Normal bilateral vertebral arteries. Normal basilar artery with a normal basilar bifurcation. The visualized bilateral superior cerebellar (SCA) arteries are normal. Normal bilateral P1, P2 and visualized P3 segments of the posterior cerebral arteries. There is no demonstrated aneurysm of the [place] of [place]. There is no demonstrated abnormality of the visualized brain. 3.9 mm hypodensity in the inferior pole of the left lobe of the thyroid. AORTIC ARCH: There is atherosclerotic calcific plaque formation of the aortic arch and great vessels arising from the aortic arch, without a hemodynamically significant stenosis. There is a bovine origin of the great vessels with a common origin of the brachiocephalic and left common carotid artery. Normal origin of the left subclavian artery. RIGHT CAROTID ARTERIES: Normal right common carotid artery (CCA). Normal right common carotid bulb. There is extensive atherosclerotic plaque formation of the origin of the right internal carotid artery with an estimated stenosis of greater than 70%. Normal visualized cervical portion of the right internal carotid artery. Normal origin of the right external carotid artery (ECA). LEFT CAROTID ARTERIES: Normal left common carotid artery (CCA). Normal left common carotid bulb. There is moderate atherosclerotic plaque formation of the origin of the left internal carotid artery with an estimated stenosis of 50-69% stenosis. Normal visualized cervical portion of the left internal carotid artery. Normal origin of the left external carotid artery (ECA). VERTEBRAL ARTERIES: There is enhancement within the bilateral vertebral arteries with a small right vertebral artery, and a dominant left vertebral artery. CT/CTA Head AND Neck W/ Contrast IMPRESSION: Calcific plaque formation at the origin of the right internal carotid artery causing greater than 70% narrowing. 50-69% narrowing at the origin of left internal carotid artery due to calcific plaque formation. N.B. : The above Results were Read Back by Timo Durham MD to KRUPA COBB and understanding confirmed on 12/06/2022 13:21:58 (ET). Electronically Signed: Timo Durham MD at 13:24 EST ,
[2022-12-06 13:05] LABS: Bedside Glucose 127 mg/dL (74-106)
--- NOTE | 2022-12-06 13:08 | CHAPLAIN ---
Type of Pastoral Visit ___ Initial Visit ___ Follow-up Visit ___ On-call Visit ___ General Patient Visit ___ Spiritual Assessment ___ Family Conference ___ Bereavement _x__ Rapid Response ___ Code Blue ___ Other (describe below) Pastoral Care Referral From ___ Patient ___ Family ___ Nurse ___ Physician ___ Leg Breaker ___ Solar Sales Rep _x__ Other (describe below) Sacrament/Intervention ___ Active listening ___ Anointing ___ Religion ___ Bereavement ___ Communion ___ Nneka exploration ___ ___ Life review ___ Prayer ___ Reconciliation ___ Sacrament of Sick ___ Supportive presence ___ Wedding ___ Other (describe below) Pastoral Comments responded to rapid response; situation under control by medical team and pt is talking/responding well; no family present
[2022-12-06 13:10] LABS: Absolute Lymphocyte Count 0.92 X10^3/uL (0.83-4.51); Absolute Neutrophil Count 4.5 X10^3/uL (2.0-7.7); Basophil# 0.04 X10^3/uL; Basophil% 0.6 % (0-1); Eosinophil# 0.38 X10^3/uL; Eosinophils% 5.5 % (0-5); Hemoglobin 13.9 g/dL (13.0-16.5); Lymphocyte # 0.92 X10^3/ul (0.83-4.51); Lymphocyte % 13.4 % (19-41); Mean Corp Hgb Conc 33.1 g/dL (32-36); Mean Corpuscular Hgb 32.3 pg (27.0-32.0); Mean Corpuscular Volume 97.7 fL (80-94); Mean Platelet Vol. 8.4 fl (6.2-12.0); Monocyte# 0.95 X10^3/uL; Monocyte% 13.8 % (0-10); NRBC Flagged by Analyzer 0 % (0-5); Neutrophil # 4.53 X10^3/uL (2.7-7.7); Neutrophil % 65.8 % (47-70); Platelet Count 335 K/mm3 (150-450); RBC Distribution Width CV 14.2 % (11.6-14.6); RBC Distribution Width SD 51.1 fl (35.1-43.9); White Blood Count 6.9 K/mm3 (4.4-11.0)
[2022-12-06 13:19] LABS: International Normalized Ratio 1.3; Prothrombin Time (Protime)PT. 15.7 SECONDS (11.7-14.9)
[2022-12-06 13:22] LABS: Anion Gap 6 (5-15); BUN 25 mg/dL (7-18); BUN/Creat Ratio 33.2 RATIO (10-20); Calcium,Total 9.1 mg/dL (8.5-10.1); Chloride 99 mmol/L (98-107); Creatinine, Serum 0.75 mg/dL (0.70-1.30); EST Glomerular Filtration Rate 110 mL/min (>60); Est Glom Filt Rate - Afr Amer 133 mL/min (>60); Estimated Creatinine Clearance 88.61 ml/min; Glucose 113 mg/dL (74-106); Potassium 3.4 mmol/L (3.5-5.1); Sodium Level 138 mmol/L (136-145)
--- NOTE | 2022-12-06 13:30 | NURSING ---
2080 face to face nurse to nurse report given to Skylar VELASQUEZ at bedside.
--- NOTE | 2022-12-06 13:34 | NURSING ---
late entry: 1227- noted Dr. Shahid on unit to evaluate patient, discussed patient's symptoms with Primary RN whom had just got off phone with chimney supervisor brick. discussed CT with , discussed if acute change. Called chimney supervisor brick and Stroke alert called. aware per primary RN last known well time 10:30 OT 127. Primary RN attempting to gain IV access for CT. PCU Charge Nurse Rodney responded completing NIH. [address] with Aparna VELASQUEZ, Rodney RN, chimney supervisor brick, and Dr. Shahid. 1323 Patient arrived to PCU.
--- NOTE | 2022-12-06 16:51 | ECHOL_ITS ---
Reason For Study: TIA/CVA Bubble study only Procedure This was a limited 2D transthoracic echocardiogram. Bubble study only. Patient had a recent full echo on 11/30/2022. Limited views were obtained. Exam performed portable in patient room. Atria Bubble contrast study negative for right to left interatrial shunt. Medication Performed a rapid injection of agitated mix of 9 cc saline and 1cc air to assess for atrial septal defect. ECHO/Echo, Limited Study Interpretation Summary Limited views were obtained. Bubble contrast study negative for right to left interatrial shunt. Ordering Physician: Mimi Shahid Performed By: Paolo Samson RCS
[2022-12-06] MEDS: Potassium Chloride Oral Tablet 20 MEQ 40 MEQ PO (18:13)
--- NOTE | 2022-12-06 18:46 | MRI_ITS ---
STUDY: MRI BRAIN WITHOUT CONTRAST REASON FOR EXAM: Male, 67 years old. Left lower face numbness TECHNIQUE: Standardized multiplanar fat and water weighted pulse sequences were obtained. COMPARISON: Same day CT HEMISPHERES, CEREBELLUM AND BRAINSTEM: 1. The cerebral parenchyma, ventricular system, subarachnoid spaces have normal configuration. There is a normal gyral pattern. There is normal salgado/white differentiation. No midline shift. 2. The hemispheric white matter has normal appearance. 3. No intraparenchymal mass, hemorrhage, or acute territorial infarct. Old right basal ganglia infarct. 4. The cerebellum, brainstem, basilar and suprasellar cisterns have normal appearance. No Chiari malformation. PITUITARY: Infundibulum and pituitary have normal configuration. Midline structures appear normal. CSF SPACES: Appropriate for age. No hydrocephalus. Basal cisterns are patent. VESSELS: 1. There are normal flow voids noted in the great vessels at the skull base ORBITS AND PARANASAL SINUSES: 1. Both globes, extraocular muscles, optic nerves and retrobulbar fat appear unremarkable. 2. Scattered paranasal sinus mucosal thickening. SCALP AND SOFT TISSUES: Normal appearance of the soft tissues of the scalp and the visualized face OTHER: None MRI/Brain without Contrast IMPRESSION: 1. No intracranial mass, hemorrhage, or acute territorial infarct. Old right basal ganglia infarct. Electronically Signed: Philip Vazquez MD at 19:42 EST ,
[2022-12-06] MEDS: Phenytoin Na 100 MG Capsule PO (21:39)
[2022-12-07] VITALS (9 sets, daily range): BP systolic 107–124; BP diastolic 62–76; PULSE 65–86; RESP 12–18; TEMP 36.5–36.8; O2SAT 94–98; BMI 39.3; BMI 39.7
[2022-12-07] MEDS: Acetaminophen 325 MG Tablet 650 MG PO ×3 (02:01→21:03)
--- NOTE | 2022-12-07 03:00 | NURSING ---
took over care of patient from RON Gonsalves at 0300
[2022-12-07 05:56] LABS: International Normalized Ratio 1.4; Prothrombin Time (Protime)PT. 16.7 SECONDS (11.7-14.9)
[2022-12-07] MEDS: Pregabalin 75 MG Capsule PO ×3 (06:29→21:07)
[2022-12-07] MEDS: Enoxaparin 40 MG/0.4 ML Syringe SC (06:30)
[2022-12-07 06:34] LABS: ALB/GLOB Ratio 0.6 RATIO (0.9-2.4); AST(SGOT) 23 U/L (15-37); Alanine Aminotransfer ALT/SGPT 37 U/L (16-61); Albumin, Serum 2.3 g/dL (3.2-5.0); Alkaline Phosphatase 59 U/L (45-117); Anion Gap 7 (5-15); BUN 24 mg/dL (7-18); BUN/Creat Ratio 36.6 RATIO (10-20); Calcium,Total 8.7 mg/dL (8.5-10.1); Chloride 108 mmol/L (98-107); Cholesterol 173 mg/dL (200); Creatinine, Serum 0.66 mg/dL (0.70-1.30); EST Glomerular Filtration Rate 130 mL/min (>60); Est Glom Filt Rate - Afr Amer 157 mL/min (>60); Estimated Creatinine Clearance 100.69 ml/min; Glucose 93 mg/dL (74-106); High Density Lipoprotein 48 mg/dL; Potassium 4.2 mmol/L (3.5-5.1); Protein, Total 6.3 g/dL (6.4-8.2); Sodium Level 138 mmol/L (136-145); Triglycerides 99 mg/dL; Very Low Density Lipoprotein 20 mg/dL (5-40)
[2022-12-07 07:08] LABS: Absolute Lymphocyte Count 1.26 X10^3/uL (0.83-4.51); Absolute Neutrophil Count 2.8 X10^3/uL (2.0-7.7); Basophil# 0.05 X10^3/uL; Basophil% 0.9 % (0-1); Eosinophils% 7.4 % (0-5); Hematocrit 41.2 % (40-54); Hemoglobin 13.3 g/dL (13.0-16.5); Lymphocyte # 1.26 X10^3/ul (0.83-4.51); Lymphocyte % 23.3 % (19-41); Mean Corp Hgb Conc 32.3 g/dL (32-36); Mean Corpuscular Hgb 31.4 pg (27.0-32.0); Mean Corpuscular Volume 97.2 fL (80-94); Mean Platelet Vol. 8.6 fl (6.2-12.0); Monocyte# 0.84 X10^3/uL; Monocyte% 15.6 % (0-10); NRBC Flagged by Analyzer 0 % (0-5); Neutrophil # 2.79 X10^3/uL (2.7-7.7); Neutrophil % 51.7 % (47-70); Platelet Count 277 K/mm3 (150-450); RBC Distribution Width CV 14.2 % (11.6-14.6); RBC Distribution Width SD 49.8 fl (35.1-43.9); Red Blood Count 4.24 M/mm3 (4.6-6.2); White Blood Count 5.4 K/mm3 (4.4-11.0)
[2022-12-07] MEDS: oxyCODONE 5 MG Tablet PO ×3 (08:51→23:01)
[2022-12-07] MEDS: Phenytoin Na 100 MG Capsule 200 MG PO (08:53)
[2022-12-07] MEDS: Senna/Docusate Sodium 1 Tablet 2 TABLET PO ×2 (08:53→21:04)
[2022-12-07] MEDS: Furosemide 40 MG Tablet PO (08:54)
[2022-12-07] MEDS: Triamcinolone 0.1% Ointment 15 gm tube 1 APPLIC TOPICAL (09:00)
--- NOTE | 2022-12-07 10:00 | WOUNDNOTE ---
wound photo: left lower leg
--- NOTE | 2022-12-07 10:00 | WOUNDNOTE ---
wound photo: left lower leg
--- NOTE | 2022-12-07 10:01 | WOUNDNOTE ---
wound photo: right lower leg
--- NOTE | 2022-12-07 10:01 | WOUNDNOTE ---
wound photo: right lower leg
--- NOTE | 2022-12-07 10:03 | PN_ITS ---
Subjective Subjective Patient was seen resting in bed sitting up eating breakfast. He states that his left lower extremity is quite painful. He denies any constitutional symptoms. Denies any further complaints. Was given dose of pain medication prior to dressing change today. Objective Data Objective Data Vital Signs: Vital Signs Temp Pulse Resp BP Pulse Ox O2 Del Method 97.7 F L 77 16 117/72 97 Room Air 12/07/22 06:00 12/07/22 06:00 12/07/22 06:00 12/07/22 06:00 12/07/22 07:29 12/07/22 07:29 Oxygen Delivery Method Room Air Weight: 111.8 kg Body Mass Index (BMI) 39.7 Intake & Output: Intake and Output for Last 24 Hours 12/05/22 12/06/22 12/07/22 23:59 23:59 23:59 Intake Total 193.75 / 193.75 905 / 905 50 / 50 Output Total 6800 / 6800 1300 / 2300 1300 / 1300 Balance -6606.25 / -6606.25 -395 / -1395 -1250 / -1250 Lab / Micro Data Result Diagrams: 12/07/22 07:00 12/07/22 05:29 Labs: Laboratory Results - last 24 hr 12/06/22 12:29: POC Glucose 127 H 12/06/22 12:55: WBC 6.9, RBC 4.30 L, Hgb 13.9, Hct 42.0, MCV 97.7 H, MCH 32.3 H, MCHC 33.1, RDW Std Deviation 51.1 H, RDW Coeff of [place] 14.2, Plt Count 335, MPV 8.4, Immature Gran % (Auto) 0.900, Neut % (Auto) 65.8, Lymph % (Auto) 13.4 L, [place] % (Auto) 13.8 H, Eos % (Auto) 5.5 H, Baso % (Auto) 0.6, Absolute Neuts (auto) 4.5, Absolute Lymphs (auto) 0.92, Nucleated RBC % 0 12/06/22 12:55: PT 15.7 H, INR 1.3, APTT 30.0 12/06/22 12:55: Sodium 138, Potassium 3.4 L, Chloride 99, Carbon Dioxide 33.0 H, Anion Gap 6, BUN 25 H, Creatinine 0.75, Estim Creat Clear Calc 88.61, Est GFR (MDRD) Af Amer 133, Est GFR (MDRD) Non-Af 110, BUN/Creatinine Ratio 33.2 H, Glucose 113 H, Calcium 9.1 12/07/22 05:29: WBC Cancelled, Corrected WBC Cancelled, RBC Cancelled, Hgb C ancelled, Hct Cancelled, MCV Cancelled, MCH Cancelled, MCHC Cancelled, RDW Std Deviation Cancelled, RDW Coeff of [place] Cancelled, Plt Count Cancelled, MPV Cancelled, Immature Gran % (Auto) Cancelled, Neut % (Auto) Cancelled, Lymph % (Auto) Cancelled, [place] % (Auto) Cancelled, Eos % (Auto) Cancelled, Baso % (Auto) Cancelled, Absolute Neuts (auto) Cancelled, Absolute Lymphs (auto) Cancelled, Total Counted Cancelled, Neutrophils % (Manual) Cancelled, Band Neutrophils % Cancelled, Lymphocytes % (Manual) Cancelled, Monocytes % (Manual) Cancelled, Eosinophils % (Manual) Cancelled, Basophils % (Manual) Cancelled, Metamyelocytes % Cancelled, Myelocytes % Cancelled, Promyelocytes % Cancelled, Blast Cells % Cancelled, Plasma Cell % (Manual) Cancelled, Other Cells % Cancelled, Nucleated RBC % Cancelled, Nucleated RBCs/100 WBC Cancelled, Differential Comment Cancelled, Diff Path Review Cancelled, Hypersegmented Neuts Cancelled, Atypical Lymphocytes Cancelled, Reactive Lymphocytes Cancelled, Smudge Cells Cancelled, Toxic Granulation Cancelled, Toxic Vacuolation Cancelled, Dohle Bodies Cancelled, Neva Rods Cancelled, Platelet Estimate Cancelled, Plt Morphology Comment Cancelled, RBC Morphology Cancelled, Polychromasia Cancelled, Hypochromasia Cancelled, Poikilocytosis Cancelled, Basophilic Stippling Cancelled, Anisocytosis Cancelled, Microcytosis Cancelled, Macrocytosis Cancelled, Spherocytes Cancelled, Sickle Cells Cancelled, Target Cells Cancelled, Tear Drop Cells Cancelled, Ovalocytes Cancelled, Stomatocytes Cancelled, [place] Bodies Cancelled, Sheldon Cells Cancelled, Bite Cells Cance lled, Crenated Cell Cancelled, Acanthocytes (Spur) Cancelled, Rouleaux Cancelled, Schistocytes Cancelled 12/07/22 05:29: Sodium 138, Potassium 4.2, Chloride 108 H, Carbon Dioxide 23.0, Anion Gap 7, BUN 24 H, Creatinine 0.66 L, Estim Creat Clear Calc 100.69, Est GFR (MDRD) Af Amer 157, Est GFR (MDRD) Non-Af 130, BUN/Creatinine Ratio 36.6 H, Glucose 93, Calcium 8.7, Total Bilirubin 0.20, AST 23, ALT 37, Alkaline Phosphatase 59, Total Protein 6.3 L, Albumin 2.3 L, Globulin 4.0, Albumin/Globulin Ratio 0.6 L, Triglycerides 99, Cholesterol 173, LDL Cholesterol 105, VLDL Cholesterol 20, HDL Cholesterol 48 12/07/22 05:29: PT 16.7 H, INR 1.4 12/07/22 07:00: WBC 5.4, RBC 4.24 L, Hgb 13.3, Hct 41.2, MCV 97.2 H, MCH 31.4, MCHC 32.3, RDW Std Deviation 49.8 H, RDW Coeff of [place] 14.2, Plt Count 277, MPV 8.6, Immature Gran % (Auto) 1.100 H, Neut % (Auto) 51.7, Lymph % (Auto) 23.3, [place] % (Auto) 15.6 H, Eos % (Auto) 7.4 H, Baso % (Auto) 0.9, Absolute Neuts (auto) 2.8, Absolute Lymphs (auto) 1.26, Nucleated RBC % 0 Micro: Microbiology 11/30/22 15:50 Wound - Leg, Left Gram Stain - Final 11/30/22 15:50 Wound - Leg, Left Wound Culture - Final Pseudomonas aeruginosa 11/30/22 15:50 Wound - Leg, Left Anaerobic Culture - Final No anaerobic bacteria isolated. 11/30/22 14:35 Blood Culture (Wb) - Right Hand Blood Culture - Final No growth in 5 days. 11/30/22 14:25 Blood Culture (Wb) - Anticubital Right Blood Culture - Final No growth in 5 days. Radiography Diagnostic Testing: Radiology Impression Brain CT 12/06/22 12:17 IMPRESSION: Chronic involutional changes of the brain. Mild degree of mucosal thickening of the ethmoid sinuses. Electronically Signed: Timo Durham MD at 13:10 EST , ADDENDUM: 12/06/22 1321 IMPRESSION: Chronic involutional changes of the brain. Mild degree of mucosal thickening of the ethmoid sinuses. N.B. : The above Results were Read Back by Timo Durham MD to Dr Kleber MD, and understanding confirmed on 12/06/2022 13:14:48 (ET). Electronically Signed: Timo Durham MD at 13:10 EST , Head/Neck CTA 12/06/22 12:17 IMPRESSION: Calcific plaque formation at the origin of the right internal carotid artery causing greater than 70% narrowing. 50-69% narrowing at the origin of left internal carotid artery due to calcific plaque formation. N.B. : The above Results were Read Back by Timo Durham MD to KRUPA COBB and understanding confirmed on 12/06/2022 13:21:58 (ET). Electronically Signed: Timo Durham MD at 13:24 EST , ADDENDUM: 12/06/22 1331 IMPRESSION: Calcific plaque formation at the origin of the right internal carotid artery causing greater than 70% narrowing. 50-69% narrowing at the origin of left internal carotid artery due to calcific plaque formation. N.B. : The above Results were Read Back by Timo Durham MD to KRUPA COBB and understanding confirmed on 12/06/2022 13:21:58 (ET). Electronically Signed: Timo Durham MD at 13:24 EST , Brain MRI 12/06/22 18:46 IMPRESSION: 1. No intracranial mass, hemorrhage, or acute territorial infarct. Old right basal ganglia infarct. Electronically Signed: Philip Vazquez MD at 19:42 EST Reading Location ID and State: [facility] / [place] Tel , Service support , Physical Exam Narrative Bilateral lower extremity venous ulcerations down to subcutaneous tissue layer - there is granular tissue, some fibrotic tissue in wound beds, margins are viable, no maloder, no fluctuance, no crepitus, no necrosis - ulcers improving, there is diffuse LE venous stasis skin changes, there is no evidence of acute ischemia bilateral, CFT < 2 seconds to all toes. No cellulitis to leg, ankle or foot bilateral. Const alert, oriented x3 and no apparent distress General Appearance: cooperative Assessment & Plan Assessment/Plan (1) Cellulitis and abscess of left leg: PLAN: Plan Patient seen and evaluated Clinically legs continue to improve. Edema is decreased with his compression dressings. Today dressing was changed - cleansed with normal saline soln, continue with local wound care Aquacel Ag, gauze, abd pads, kerlix, compression therapy and leg elevation. Patient is on antibiotics as well - Zosyn - cultures grew pseudomonas. Podiatry will continue to follow - will see for next dressing change which will be on Tuesday. Pending patient discharge he will return to the wound care center for appointment with Dr. Garcia on Tuesday. Jr. Romel Oliver.P.M. [facility] [phone]
--- NOTE | 2022-12-07 11:15 | CASEMGMT ---
Physician said patient now [facility] facility. Patient is from [facility] ([facility]) independent living. SW met with patient, introduced self and role at [facility]. SW asked patient if he would like a list of nursing homes or if he wants to go to [facility]. Patient said he wants to go to [facility]. SW called [facility] and left a message on the referral phone. SW also faxed referral information to [facility]. Await response. Sarah HOOKER
[2022-12-07] MEDS: Furosemide 20 MG Tablet PO (11:16)
--- NOTE | 2022-12-07 11:30 | CASEMGMT ---
LUIS received a call from Mary at [facility] ([facility]) and they will have a bed for patient tomorrow. LUIS notified physician. Plan: d/c to [facility] under skilled level of care. Sarah HOOKER
[2022-12-07] MEDS: Baclofen 10 MG Tablet PO ×2 (12:08→21:03)
--- NOTE | 2022-12-07 12:56 | PCM.PN.HOSP ---
Reason for Visit Reason for Visit: Diagnoses Unspecified severe protein-calorie malnutrition (11/30/22) Other chronic pain (11/30/22) Venous insufficiency (chronic) (peripheral) (11/30/22) Lymphedema, not elsewhere classified (11/30/22) Cutaneous abscess of left lower limb (11/30/22) Cutaneous abscess of limb, unspecified (11/30/22) Cellulitis of left lower limb (11/30/22) Cellulitis of unspecified part of limb (11/30/22) Non-pressure chronic ulcer of right calf with fat layer exposed (11/30/22) Non-pressure chronic ulcer of left calf with fat layer exposed (11/30/22) Unspecified fall, initial encounter (11/30/22) Subjective Subjective Numbness there but improving in certain areas is somewhat around eyes still, numbness distribution variable, still has pain in legs and has been having difficulty with mobility, willing for SNF placement Objective Data Objective Data Vital Signs: Vital Signs Temp Pulse Resp BP Pulse Ox O2 Del Method 98.0 F 65 14 118/76 97 Room Air 12/07/22 09:00 12/07/22 09:00 12/07/22 09:00 12/07/22 09:00 12/07/22 09:00 12/07/22 09:00 Oxygen Delivery Method Room Air Weight: 111.8 kg Body Mass Index (BMI) 39.7 Intake & Output: Intake and Output for Last 24 Hours 12/05/22 12/06/22 12/07/22 23:59 23:59 23:59 Intake Total 193.75 / 193.75 905 / 905 100 / 100 Output Total 6800 / 6800 1300 / 2300 1300 / 1300 Balance -6606.25 / -6606.25 -395 / -1395 -1200 / -1200 Lab / Micro Data Result Diagrams: 12/07/22 07:00 12/07/22 05:29 Labs: Laboratory Results - last 24 hr 12/06/22 12:29: POC Glucose 127 H 12/06/22 12:55: WBC 6.9, RBC 4.30 L, Hgb 13.9, Hct 42.0, MCV 97.7 H, MCH 32.3 H, MCHC 33.1, RDW Std Deviation 51.1 H, RDW Coeff of [place] 14.2, Plt Count 335, MPV 8.4, Immature Gran % (Auto) 0.900, Neut % (Auto) 65.8, Lymph % (Auto) 13.4 L, [place] % (Auto) 13.8 H, Eos % (Auto) 5.5 H, Baso % (Auto) 0.6, Absolute Neuts (auto) 4.5, Absolute Lymphs (auto) 0.92, Nucleated RBC % 0 12/06/22 12:55: PT 15.7 H, INR 1.3, APTT 30.0 12/06/22 12:55: Sodium 138, Potassium 3.4 L, Chloride 99, Carbon Dioxide 33.0 H, Anion Gap 6, BUN 25 H, Creatinine 0.75, Estim Creat Clear Calc 88.61, Est GFR (MDRD) Af Amer 133, Est GFR (MDRD) Non-Af 110, BUN/Creatinine Ratio 33.2 H, Glucose 113 H, Calcium 9.1 12/07/22 05:29: WBC Cancelled, Corrected WBC Cancelled, RBC Cancelled, Hgb Cancelled, Hct Cancelled, MCV Cancelled, MCH Cancelled, MCHC Cancelled, RDW Std Deviation Cancelled, RDW Coeff of [place] Cancelled, Plt Count Cancelled, MPV Cancelled, Immature Gran % (Auto) Cancelled, Neut % (Auto) Cancelled, Lymph % (Auto) Cancelled, [place] % (Auto) Cancelled, Eos % (Auto) Cancelled, Baso % (Auto) Cancelled, Absolute Neuts (auto) Cancelled, Absolute Lymphs (auto) Cancelled, Total Counted Cancelled, Neutrophils % (Manual) Cancelled, Band Neutrophils % Cancelled, Lymphocytes % (Manual) Cancelled, Monocytes % (Manual) Cancelled, Eosinophils % (Manual) Cancelled, Basophils % (Manual) Cancelled, Metamyelocytes % Cancelled, Myelocytes % Cancelled, Promyelocytes % Cancelled, Blast Cells % Cancelled, Plasma Cell % (Manual) Cancelled, Other Cells % Cancelled, Nucleated RBC % Cancelled, Nucleated RBCs/100 WBC Cancelled, Differential Comment Cancelled, Diff Path Review Cancelled, Hypersegmented Neuts Cancelled, Atypical Lymphocytes Cancelled, Reactive Lymphocytes Cancelled, Smudge Cells Cancelled, Toxic Granulation Cancelled, Toxic Vacuolation Cancelled, Dohle Bodies Cancelled, Neva Rods Cancelled, Platelet Estimate Cancelled, Plt Morphology Comment Cancelled, RBC Morphology Cancelled, Polychromasia Cancelled, Hypochromasia Cancelled, Poikilocytosis Cancelled, Basophilic Stippling Cancelled, Anisocytosis Cancelled, Microcytosis Cancelled, Macrocytosis Cancelled, Spherocytes Cancelled, Sickle Cells Cancelled, Target Cells Cancelled, Tear Drop Cells Cancelled, Ovalocytes Cancelled, Stomatocytes Cancelled, [place] Bodies Cancelled, Elza Cells Cancelled, Bite Cells Cancelled, Crenated Cell Cancelled, Acanthocytes (Spur) Cancelled, Rouleaux Cancelled, Schistocytes Cancelled 12/07/22 05:29: Sodium 138, Potassium 4.2, Chloride 108 H, Carbon Dioxide 23.0, Anion Gap 7, BUN 24 H, Creatinine 0.66 L, Estim Creat Clear Calc 100.69, Est GFR (MDRD) Af Amer 157, Est GFR (MDRD) Non-Af 130, BUN/Creatinine Ratio 36.6 H, Glucose 93, Calcium 8.7, Total Bilirubin 0.20, AST 23, ALT 37, Alkaline Phosphatase 59, Total Protein 6.3 L, Albumin 2.3 L, Globulin 4.0, Albumin/Globulin Ratio 0.6 L, Triglycerides 99, Cholesterol 173, LDL Cholesterol 105, VLDL Cholesterol 20, HDL Cholesterol 48 12/07/22 05:29: PT 16.7 H, INR 1.4 12/07/22 07:00: WBC 5.4, RBC 4.24 L, Hgb 13.3, Hct 41.2, MCV 97.2 H, MCH 31.4, MCHC 32.3, RDW Std Deviation 49.8 H, RDW Coeff of [place] 14.2, Plt Count 277, MPV 8.6, Immature Gran % (Auto) 1.100 H, Neut % (Auto) 51.7, Lymph % (Auto) 23.3, [place] % (Auto) 15.6 H, Eos % (Auto) 7.4 H, Baso % (Auto) 0.9, Absolute Neuts (auto) 2.8, Absolute Lymphs (auto) 1.26, Nucleated RBC % 0 Micro: Microbiology 11/30/22 15:50 Wound - Leg, Left Gram Stain - Final 11/30/22 15:50 Wound - Leg, Left Wound Culture - Final Pseudomonas aeruginosa 11/30/22 15:50 Wound - Leg, Left Anaerobic Culture - Final No anaerobic bacteria isolated. 11/30/22 14:35 Blood Culture (Wb) - Right Hand Blood Culture - Final No growth in 5 days. 11/30/22 14:25 Blood Culture (Wb) - Anticubital Right Blood Culture - Final No growth in 5 days. Radiography Diagnostic Testing: Radiology Impression Brain CT 12/06/22 12:17 IMPRESSION: Chronic involutional changes of the brain. Mild degree of mucosal thickening of the ethmoid sinuses. Electronically Signed: Timo Durham MD at 13:10 EST , ADDENDUM: 12/06/22 1321 IMPRESSION: Chronic involutional changes of the brain. Mild degree of mucosal thickening of the ethmoid sinuses. N.B. : The above Results were Read Back by Timo Durham MD to Dr Kleber MD, and understanding confirmed on 12/06/2022 13:14:48 (ET). Electronically Signed: Timo Durham MD at 13:10 EST , Head/Neck CTA 12/06/22 12:17 IMPRESSION: Calcific plaque formation at the origin of the right internal carotid artery causing greater than 70% narrowing. 50-69% narrowing at the origin of left internal carotid artery due to calcific plaque formation. N.B. : The above Results were Read Back by Timo Durham MD to MIMI SHAHID and understanding confirmed on 12/06/2022 13:21:58 (ET). Electronically Signed: Timo Durham MD at 13:24 EST , ADDENDUM: 12/06/22 1331 IMPRESSION: Calcific plaque formation at the origin of the right internal carotid artery causing greater than 70% narrowing. 50-69% narrowing at the origin of left internal carotid artery due to calcific plaque formation. N.B. : The above Results were Read Back by Timo Durham MD to MIMI SHAHID and understanding confirmed on 12/06/2022 13:21:58 (ET). Electronically Signed: Timo Durham MD at 13:24 EST , Brain MRI 12/06/22 18:46 IMPRESSION: 1. No intracranial mass, hemorrhage, or acute territorial infarct. Old right basal ganglia infarct. Electronically Signed: Philip Vazquez MD at 19:42 EST , Physical Exam Narrative General: Alert, oriented, no apparent distress HEENT: Atraumatic, normocephalic Eyes: Anicteric, normal conjunctiva, pupils equal round reactive to light, extraocular movements intact Neck: Supple Respiratory: Clear to auscultation bilaterally, normal respiratory effort Cardiovascular: Regular rate and rhythm GI: Soft, nontender, nondistended Extremities: No edema Musculoskeletal: Moving all extremities Neuro: No new overt abnormalities noted Skin: Chronic leg changes Psych: Cooperative Assessment & Plan Assessment/Plan (1) Cellulitis and abscess of left leg: PLAN: Plan 67-year-old male with 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 #Bilateral leg cellulitis with abscess of left leg in setting of bilateral lymphedema with venous stasis dermatitis and ulceration -Follows with wound clinic and last seen on 11/26 where he was referred to ED -Wound culture grew Pseudomonas, vancomycin discontinued -Podiatry following -Zosyn through the -Wound care nurse -Was on Lasix at home orally which was suspected to not be working and he was changed to IV Lasix here, no known history of heart disease, echo on this admission with an EF of 70% with enlarged left atrium and indeterminate diastolic dysfunction -BUN and bicarb beginning to increase inc, will change back to 40 of Lasix p.o. in the a.m. and 20 at lunch -12/07: Has finished antibiotics course, podiatry following, wound care following, will follow up with wound care as an outpatient as well. Next dressing change on Tuesday. Patient has increased debility given his leg pain and wounds and is now agreeable to skilled facility, bed will be available tomorrow #Facial numbness -Given distribution and his history had stroke call, CT head no acute changes, CTA with 70% right internal carotid stenosis -We will obtain MRI -On Coumadin, INR 1.3 today though was therapeutic on admission, will adjust dosing -INR 1.3, total weekly dose is 31 and based on the RE-LY trial algorithm his dosage was increased by 15 %/week so he was changed to 5 mg daily, will start on Lovenox for DVT prophylaxis until INR is therapeutic as he is not a good candidate for SCDs -Echocardiogram 11/30/2022 with EF 70%, left atrium mildly enlarged, trivial mitral valve insufficiency, diastolic function indeterminate, will repeat limited echo for bubble study -change level of care to telemetry, [facility] [[email or web address]] every 4 hours -Permissive hypertension -Has listed allergies to statins, statin held -lipid panel in AM -pt/ot/speech -12/07: Numbness improved and somewhat variable in location, not consistent with 1 dermatome nor 1 nerve root nor specific stroke distribution, given right internal carotid stenosis discussed with Dr. Allison and he advised carotid duplex and adding aspirin and then follow-up outpatient, MRI negative #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 and recent fall -Had stitches to right supraorbital margin in ED, CT in ED showed old infarct of thalamus and CT C-spine with multilevel degenerative changes -Coumadin -PT/OT -See above for interval history #History of VTE -Has history of IVC filter which was noted on his abdominal CT -Duplex of the leg noted chronic DVT in right common femoral vein, right femoral vein, chronic DVT in left femoral vein and left popliteal vein -On Coumadin, trend INR #History of seizure disorder -Continue phenytoin #Severe protein calorie malnutrition -Prealbumin 16 -Nutrition consult, supplements #Chronic pain 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 Does also have IVC filter of note Mimi Shahid MD Time spent in the patient's overall evaluation,decision-making process, review of diagnostic data, adjustment of management, discussion with other providers, nursing nursing and ancillary staff involved in patient's care documentation, 30 Minutes Charges/Coding Visit Charges Inpatient E&M: 70125 Subs Hosp L2
--- NOTE | 2022-12-07 13:17 | CASEMGMT ---
LUIS notified Zakiya at [facility] and let her know that patient will be going to [facility] for short term rehab. Plan: [facility] under skilled level of care. Sarah HOOKER
--- NOTE | 2022-12-07 14:04 | CDU_ITS ---
Reason For Study: Carotid stenosis on CT Rt. Velocities/BP Lt. Velocities/BP Prox CCA 86.1/11.3 cm/sec. Prox CCA 74/16.3 cm/sec. Mid CCA 69.6/11.3 cm/sec. Mid CCA 76.8/19.2 cm/sec. Dist CCA 70.7/14.6 cm/sec. Dist CCA 65.5/15.4 cm/sec. Prox ICA 75.1/20.1 cm/sec. Prox ICA 88.1/30.5 cm/sec. Mid ICA 87.2/25.6 cm/sec. Mid ICA 82.8/25.6 cm/sec. Dist ICA 70.7/23.4 cm/sec. Dist ICA 77.3/23.4 cm/sec. Rt. ICA/CCA = 1.23. Lt. ICA/CCA = 1.19. Prox ECA 83.9/6.9 cm/sec. Prox ECA 78.7/7.8 cm/sec. Rt. Vert. 36.9/6.4 cm/sec. Lt. Vert. 43.2/13.5 cm/sec. Right Extracranial There is homogeneous, smooth atherosclerotic plaque noted in the right common carotid artery. There is heterogeneous, irregular atherosclerotic plaque noted in the right internal carotid artery. There is heterogeneous, irregular atherosclerotic plaque noted in the right external carotid artery. Antegrade flow is noted in the right vertebral artery. Left Extracranial There is homogeneous, smooth atherosclerotic plaque noted in the left common carotid artery. There is heterogeneous, irregular atherosclerotic plaque noted in the left internal carotid artery. There is intimal thickening but no significant atherosclerotic plaque noted in the left external carotid artery. Antegrade flow is noted in the left vertebral artery. Procedure This is a Carotid Duplex examination using B-mode, color flow and specral Doppler. Carotid Duplex 30958. Preliminary report to Rodney VELASQUEZ. Exam performed portable in patient room. VL/Carotid Duplex Ultrasound Interpretation Summary Mild (<50%) stenosis right extracranial internal carotid. Mild (<50%) stenosis left extracranial internal carotid. Patent and antegrade vertebrals bilaterally. Ordering Physician: Mimi Shahid Referring Physician: Patricia Garcia Performed By: Kasia Oro RVT
[2022-12-07] MEDS: Phenytoin Na 100 MG Capsule PO (21:04)
[2022-12-08] VITALS (8 sets, daily range): BP systolic 114–133; BP diastolic 67–84; PULSE 73–85; RESP 16–17; TEMP 36.4–36.8; O2SAT 95–100; BMI 39.8
[2022-12-08] MEDS: oxyCODONE 5 MG Tablet PO ×3 (03:45→12:56)
[2022-12-08] MEDS: Acetaminophen 325 MG Tablet 650 MG PO ×3 (04:09→16:27)
[2022-12-08] MEDS: Pregabalin 75 MG Capsule PO ×2 (05:44→14:17)
[2022-12-08] MEDS: Enoxaparin 40 MG/0.4 ML Syringe SC (05:45)
[2022-12-08 06:17] LABS: Absolute Lymphocyte Count 1.66 X10^3/uL (0.83-4.51); Absolute Neutrophil Count 2.8 X10^3/uL (2.0-7.7); Basophil# 0.04 X10^3/uL; Basophil% 0.7 % (0-1); Eosinophil# 0.41 X10^3/uL; Eosinophils% 7.2 % (0-5); Hematocrit 38.8 % (40-54); Hemoglobin 12.8 g/dL (13.0-16.5); Lymphocyte # 1.66 X10^3/ul (0.83-4.51); Lymphocyte % 29.2 % (19-41); Mean Platelet Vol. 8.6 fl (6.2-12.0); Monocyte# 0.76 X10^3/uL; Monocyte% 13.4 % (0-10); NRBC Flagged by Analyzer 0 % (0-5); Neutrophil # 2.75 X10^3/uL (2.7-7.7); Neutrophil % 48.4 % (47-70); Platelet Count 291 K/mm3 (150-450); RBC Distribution Width CV 14.1 % (11.6-14.6); RBC Distribution Width SD 49.8 fl (35.1-43.9); White Blood Count 5.7 K/mm3 (4.4-11.0)
[2022-12-08 06:52] LABS: International Normalized Ratio 1.5; Prothrombin Time (Protime)PT. 17.8 SECONDS (11.7-14.9)
[2022-12-08 06:53] LABS: Anion Gap 8 (5-15); BUN 26 mg/dL (7-18); BUN/Creat Ratio 40.8 RATIO (10-20); Calcium,Total 8.7 mg/dL (8.5-10.1); Chloride 105 mmol/L (98-107); Creatinine, Serum 0.64 mg/dL (0.70-1.30); EST Glomerular Filtration Rate 134 mL/min (>60); Est Glom Filt Rate - Afr Amer 162 mL/min (>60); Estimated Creatinine Clearance 103.84 ml/min; Glucose 90 mg/dL (74-106); Sodium Level 138 mmol/L (136-145)
[2022-12-08] MEDS: Aspirin 81 MG TAB.CHEW PO (08:10)
[2022-12-08] MEDS: Senna/Docusate Sodium 1 Tablet 2 TABLET PO (08:11)
[2022-12-08] MEDS: Furosemide 40 MG Tablet PO (08:11)
[2022-12-08] MEDS: Ergocalciferol 1.25 MG (50, 000 UNIT) Capsule PO (08:11)
[2022-12-08] MEDS: Triamcinolone 0.1% Ointment 15 gm tube 1 APPLIC TOPICAL (08:12)
[2022-12-08] MEDS: Phenytoin Na 100 MG Capsule 200 MG PO (08:12)
[2022-12-08] MEDS: Baclofen 10 MG Tablet PO ×2 (08:53→15:36)
--- NOTE | 2022-12-08 09:28 | WOUNDNOTE ---
Dressings to bilateral lower legs are D&I. next scheduled dressing change will be at the wound healing center this Tuesday per Dr Sheppard.
[2022-12-08] MEDS: Furosemide 20 MG Tablet PO (12:53)
--- NOTE | 2022-12-08 13:09 | TREXTCAR_ITS ---
Diet Diet Order/Speech Therapy: 12/07/22 06:41 Diet: Cardiac - Heart Healthy Type of Dietary Supplement:: Xavier Is pt able to select menu?: Yes Diet Comments: flavored Xavier w/ breakfast and dinner Routine Orders/Code Status Suppository Type: Dulcolax 10mg Suppository Frequency: Daily PRN Routine Lab Work: INR (Tomorrow then per protocol due to subtherapeutic INR) Code Status: DNRCC-A Wound(s) left lower leg: Wound Type: cluster of stasis ulcers Dressing Change: Aquacel right medial lower leg: Wound Type: Stasis Ulcer Dressing Change: Aquacel right lateral lower leg: Wound Type: Stasis Ulcer Dressing Change: Aquacel laceration above rt eye: Wound Type: Laceration Therapies Physical Therapy: Eval and Treat Occupational Therapy: Eval and Treat Problem/Diagnosis (1) Cellulitis and abscess of left leg: Status: Acute Code(s): L03.116 - Cellulitis of left lower limb; L02.416 - Cutaneous abscess of left lower limb Plan #Bilateral leg cellulitis with abscess of left leg in setting of bilateral lymphedema with venous stasis dermatitis and ulceration #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 Wound care and podiatry consulted. His leg wound grew Pseudomonas and he was on a course of Zosyn through 12/07/2022. Additionally given leg weeping and swelling, though in part chronic, he was temporarily on IV Lasix but echo this admission with EF of 70% with enlarged left atrium and indeterminate diastolic dysfunction and he was switched back to his oral Lasix of 40 in the morning and 20 at lunch. During his admission he did have a stroke alert on 12/06 where he reported some left-sided facial numbness though distribution not classic he did have risk factors and INR was subtherapeutic. CT head with no acute changes, CTA with 70% right internal carotid stenosis. MRI negative for acute stroke. Discussed with vascular physician given the internal carotid stenosis and it was not felt that the st enosis was the cause of his symptoms especially as the distribution was not classic and carotid duplex, aspirin, and outpatient follow-up were recommended. Discharged instructions as followed: -He will need to continue wound care of bilateral lower extremities with next dressing change on Tuesday, continue to follow with Dr. Garcia at the wound center upon discharge -You have had several medications changed during this hospital stay. You are no longer taking clonidine for blood pressure, please discontinue this. Your lisinopril dose was decreased to 10 mg daily. -Your methadone was held and you were given oxycodone as needed for your pain during this admission, will send with short prescription of oxycodone and will defer to your outpatient provider with regards to resuming methadone -You have been started on a daily aspirin -Your Coumadin was increased to 5 mg daily and you are presently subtherapeutic with an INR of 1.5 on 12/08/2022, recommend checking INR tomorrow with rechecks an d adjustment per protocol. 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 Allison, on an outpatient basis due to this narrowing, please call upon discharge to schedule a hospital follow-up appointment -You were started on aspirin due to this narrowing and you have also been continued on Coumadin -Had an enlarged left inguinal lymph node that was 4.81 cm x 1.10 cm, can follow-up for further as an outpatient, may be reactive -Diet recommendations are sodium restricted diet with Xavier twice daily with meals to promote wound healing -Please call your primary care provider's office upon discharge to schedule a hospital follow up within 1 week. -For any concerning signs or symptoms please call 911 or proceed to the nearest emergency department Allergies/Procedures Done in Hospital Allergies duloxetine [From Cymbalta] Allergy (Verified 11/30/22 08:09) Rash sulfamethoxazole [From Bactrim] Allergy (Verified 11/30/22 08:09) Rash trimethoprim [From Bactrim] Allergy (Verified 11/30/22 08:09) Rash ciprofloxacin [From Cipro] Adverse Reaction (Verified 11/30/22 08:09) PAIN IN FEET ciprofloxacin HCl [From Cipro] Adverse Reaction (Verified 11/30/22 08:09) Rash citalopram Adverse Reaction (Verified 11/30/22 08:09) SUICIDAL THOUGHTS SUICIDAL THOUGHTS gabapentin [From Neurontin] Adverse Reaction (Verified 11/30/22 08:09) EFFECTED VISION AND HEARING FOGGY, IT EFFECTED MY VISION AND MY HEARING hydrochlorothiazide Adverse Reaction (Verified 11/30/22 08:09) DIZZINESS dizziness levetiracetam [From Keppra] Adverse Reaction (Verified 11/30/22 08:09) Other Edicyys-JMS-JhU Reductase Inhibitor Adverse Reaction (Verified 11/30/22 08:09) Other SEVERE MUSCLE PAIN tramadol Adverse Reaction (Verified 11/30/22 08:09) Other SEIZURE Procedures: Transthoracic Echo and - (Low extremity venous study with chronic DVT in both legs and an enlarged left inguinal lymph node) Type of Care/Length of Stay Estimated LOS: Convalescent Care Less Than 30 days Type of Care Needed: Skilled Rehab Potential: Good Prognosis: Good Additional Orders/Day of Discharge Day of Discharge: 12/08/22 Dietary and Speech Recommendations Dietitian Recommendations/Changes: will continue sodium restricted diet and Xavier BID w/ meals for wound healing; consider COMPLAINT INVESTIGATIONS OFFICER consult pending chewing/swallowing issues w/ new stroke concern Discharge Plan Admission Admit Date/Time: 11/30/22 13:15 Primary Reason for Your Visit: Fall, leg wounds Attending Provider: Mimi Shahid Primary Care Provider: Patricia Garcia Consulting Providers: Satya Erazo ; Wei Lucero ; Jason Carranza Instructions Patient Instructions: ED Fall Prevention Additional Instructions / Restrictions: DISCHARGE INSTRUCTIONS PLEASE READ -He will need to continue wound care of bilateral lower extremities with next dressing change on Tuesday, continue to follow with Dr. Garcia at the wound center upon discharge -You have had several medications changed during this hospital stay. You are no longer taking clonidine for blood pressure, please discontinue this. Your lisinopril dose was decreased to 10 mg daily. -Your methadone was held and you were given oxycodone as needed for your pain during this admission, will send with short prescription of oxycodone and will defer to your outpatient provider with regards to resuming methadone -You have been started on a daily aspirin -Your Coumadin was increased to 5 mg daily and you are presently subtherapeutic with an INR of 1.5 on 12/08/2022, recommend checking INR tomorrow with rechecks and adjustment per protocol. 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 Allison, on an outpatient basis due to this narrowing, please call upon discharge to schedule a hospital follow-up appointment -You were started on aspirin due to this narrowing and you have also been continued on Coumadin -Had an enlarged left inguinal lymph node that was 4.81 cm x 1.10 cm, can follow-up for further as an outpatient, may be reactive -Diet recommendations are sodium restricted diet with Xavier twice daily with meals to promote wound healing -Please call your primary care provider's office upon discharge to schedule a hospital follow up within 1 week. -For any concerning signs or symptoms please call 911 or proceed to the nearest emergency department Discharge Orders/Prescriptions Prescriptions: New aspirin 81 mg Tablet,Chewable 81 mg PO BREAKFAST Qty: 0 0RF oxycodone 5 mg Tablet 5 mg PO Q6H PRN PRN (Reason: Pain Score 4-10) 3 Days Qty: 20 0RF Continued niacin 50 mg tablet 25 mg PO DAILY Fish Oil 500 MG capsule 1,000 mg PO DAILY turmeric root extract 500 mg capsule 100 mg PO BID baclofen 10 mg tablet 10 mg PO .QID PRN (Reason: Muscle Spasm) ergocalciferol (vitamin D2) [Vitamin D2] 1,250 mcg (50,000 unit) Capsule 1,250 mcg PO WE coenzyme Q10 [CoQ-10] 100 mg Capsule 100 mg PO QODAY furosemide [Lasix] 40 mg Tablet 40 mg PO DAILY furosemide [Lasix] 20 mg Tablet 20 mg PO LUNCH Changed warfarin [Jantoven] 4 mg tablet 5 mg PO DAILY Qty: 30 0RF lisinopril 5 MG tablet 10 mg PO DAILY Qty: 30 0RF Label Comments: blood pressure Held methadone 10 mg tablet 10 mg PO Q12H Hold Instructions: Resume on 12/22/22. Will defer to outpatient provider for dose and timing of resumption of methadone Discontinued warfarin [Jantoven] 5 mg tablet 5 mg PO UD Clonidine Hcl 0.1 MG tablet 1 tab PO BID No Action phenytoin sodium extended [Dilantin Extended] 100 mg capsule 200 mg PO DAILY pregabalin [Lyrica] 75 mg capsule 75 mg PO TID phenytoin sodium extended [Dilantin Extended] 100 mg Capsule 100 mg PO QHS Referrals / Follow Up: Wei Allison MD [Med Staff - Active Staff] - Within 1 Month (Follow up with Dr. Allison, the vascular doctor, for the narrowing of your artery upon discharge. Please call to schedule an appointment) Patricia Garcia DO [Primary Care Provider] - Within 1 Week Disposition Disposition (needs filled in before D/C Order can be placed[facility]
--- NOTE | 2022-12-08 13:58 | DS.PCM_ITS ---
Providers Date of Admission: 11/30/22 Date of Discharge: 12/08/22 Primary Care Physician: Dr. Patriica Garcia, Consultations 11/30/22 15:45 Consult: Onc/Wound/hat and cap opener Routine Comment: Reason for Consult:: B/L purulent drainage, cellulitis Consult: Podiatry Routine Consulting Provider: Jason Carranza Reason for Consult: B/L Diffuse cellulitis EMERGENT Consult: No MD Notified: Yes Date Notified: 11/30/22 Time Notified: 13:52 Method of Notification: Text Reason For Visit: FALL, GROSS CELLULITIS AND DRAINAGE Diagnosis Discharge Diagnosis (1) Cellulitis and abscess of left leg: Status: Acute Code(s): L03.116 - Cellulitis of left lower limb; L02.416 - Cutaneous abscess of left lower limb Plan #Bilateral leg cellulitis with abscess of left leg in setting of bilateral lymphedema with venous stasis dermatitis and ulceration #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 and recent fall #History of VTE #History of seizure disorder -Continue phenytoin #Severe protein calorie malnutrition #Chronic pain Patient reports history of thalamic syndrome and electromagnetic hypersensitivity -Takes methadone #Hypertension Medications at Discharge Home Medications omega-3 fatty acids 500 mg capsule (Fish Oil) 1,000 mg PO DAILY supplement 08/27/15 baclofen 10 mg tablet 10 mg PO .QID PRN Muscle Spasm 04/14/22 methadone 10 mg tablet 10 mg PO Q12H Check with primary doctor 04/14/22 niacin 50 mg tablet 25 mg PO DAILY Check with primary doctor 04/14/22 phenytoin sodium extended 100 mg capsule (Dilantin Extended) 200 mg PO DAILY Check with primary doctor 04/14/22 pregabalin 75 mg capsule (Lyrica) 75 mg PO TID Check with primary doctor 04/14/22 turmeric root extract 500 mg capsule 100 mg PO BID supplement 04/14/22 coenzyme Q10 100 mg capsule (CoQ-10) 100 mg PO QODAY Check with primary doctor 07/02/22 ergocalciferol (vitamin D2) 1,250 mcg (50,000 unit) capsule (Vitamin D2) 1,250 mcg PO WE Check with primary doctor 07/02/22 phenytoin sodium extended 100 mg capsule (Dilantin Extended) 100 mg PO QHS Check with primary doctor 07/02/22 furosemide 20 mg tablet (Lasix) 20 mg PO LUNCH 09/26/22 furosemide 40 mg tablet (Lasix) 40 mg PO DAILY 07/05/22 aspirin 81 mg chewable tablet 81 mg PO BREAKFAST #0 tabs 12/08/22 lisinopril 5 mg tablet 10 mg PO DAILY blood pressure #30 tabs 12/08/22 oxycodone 5 mg tablet 5 mg PO Q6H PRN PRN Pain Score 4-10 3 days #20 tabs 12/08/22 warfarin 4 mg tablet (Jantoven) 5 mg PO DAILY Blood thinner #30 tabs 12/08/22 Hospital Course Procedures - (echo, MRI, venous studies) Summary of Care Provided Minutes Spent on Discharge: 40 Hospital Course: 67-year-old male with history of CVA in 2008 with left-sided weakness, venous insufficiency with lower extremity ulcers following with the wound care clinic, and VTE on Coumadin who presented here 11/30/2022 with bilateral leg cellulitis and fall with laceration of the head. Wound care and podiatry consulted. His leg wound grew Pseudomonas and he was on a course of Zosyn through 12/07/2022. Additionally given leg weeping and swelling, though in part chronic, he was temporarily on IV Lasix but echo this admission with EF of 70% with enlarged le ft atrium and indeterminate diastolic dysfunction and he was switched back to his oral Lasix of 40 in the morning and 20 at lunch. During his admission he did have a stroke alert on 12/06 where he reported some left-sided facial numbness though distribution not classic he did have risk factors and INR was subtherapeutic. CT head with no acute changes, CTA with 70% right internal carotid stenosis. MRI negative for acute stroke. Discussed with vascular physician given the internal carotid stenosis and it was not felt that the stenosis was the cause of his symptoms especially as the distribution was not classic and carotid duplex, aspirin, and outpatient follow-up were recommended. On day of discharge reported facial numbness is much better, legs do still hurt, did not voice any other complaints. Discharged instructions as followed: -He will need to continue wound care of bilateral lower extremities with next dressing change on Tuesday, continue to follow with Dr. Garcia at the wound center upon discharge -You have had several medications changed during this hospital stay. You are no longer taking clonidine for blood pressure, please discontinue this. Your lisinopril dose was decreased to 10 mg daily. -Your methadone was held and you were given oxycodone as needed for your pain during this admission, will send with short prescription of oxycodone and will defer to your outpatient provider with regards to resuming methadone -You have been started on a daily aspirin -Your Coumadin was increased to 5 mg daily and you are presently subtherapeutic with an INR of 1.5 on 12/08/2022, recommend checking INR tomorrow with rechecks and adjustment per protocol. 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 Allison, on an outpatient basis due to this narrowing, please call upon discharge to schedule a hospital follow-up appointment -You were started on aspirin due to this narrowing and you have also been continued on Coumadin -Had an enlarged left inguinal lymph node that was 4.81 cm x 1.10 cm, can follow-up for further as an outpatient, may be reactive -Diet recommendations are sodium restricted diet with Xavier twice daily with meals to promote wound healing -Please call your primary care provider's office upon discharge to schedule a hospital follow up within 1 week. -For any concerning signs or symptoms please call 911 or proceed to the nearest emergency department Physical Exam Narrative General: Alert, oriented, no apparent distress HEENT: Atraumatic, normocephalic Eyes: Anicteric, normal conjunctiva, pupils equal round reactive to light, extraocular movements intact Neck: Supple Respiratory: normal respiratory effort Cardiovascular: Regular rate and rhythm GI: Soft, nontender, nondistended Extremities: Legs are wrapped Musculoskeletal: Moving all extremities Neuro: No new overt abnormalities noted Skin: Chronic leg changes Psych: Cooperative Weight / BMI Weight Weight: 112 kg Body Mass Index (BMI) 39.8 ABG / Lab / Microbiology Data Result Diagrams: 12/08/22 05:52 12/08/22 05:52 Laboratory: Laboratory Results - last 24 hr 12/08/22 05:52: PT 17.8 H, INR 1.5 12/08/22 05:52: WBC 5.7, RBC 4.00 L, Hgb 12.8 L, Hct 38.8 L, MCV 97.0 H, MCH 32.0, MCHC 33.0, RDW Std Deviation 49.8 H, RDW Coeff of [place] 14.1, Plt Count 291, MPV 8.6, Immature Gran % (Auto) 1.100 H, Neut % (Auto) 48.4, Lymph % (Auto) 29.2, [place] % (Auto) 13.4 H, Eos % (Auto) 7.2 H, Baso % (Auto) 0.7, Absolute Neuts (auto) 2.8, Absolute Lymphs (auto) 1.66, Nucleated RBC % 0 12/08/22 05:52: Sodium 138, Potassium 4.0, Chloride 105, Carbon Dioxide 25.0, Anion Gap 8, BUN 26 H, Creatinine 0.64 L, Estim Creat Clear Calc 103.84, Est GFR (MDRD) Af Amer 162, Est GFR (MDRD) Non-Af 134, BUN/Creatinine Ratio 40.8 H, Glucose 90, Calcium 8.7 Microbiology: Microbiology 11/30/22 15:50 Wound - Leg, Left Gram Stain - Final 11/30/22 15:50 Wound - Leg, Left Wound Culture - Final Pseudomonas aeruginosa 11/30/22 15:50 Wound - Leg, Left Anaerobic Culture - Final No anaerobic bacteria isolated. 11/30/22 14:35 Blood Culture (Wb) - Right Hand Blood Culture - Final No growth in 5 days. 11/30/22 14:25 Blood Culture (Wb) - Anticubital Right Blood Culture - Final No growth in 5 days. Radiography Diagnostic Testing: Radiology Impression Echocardiogram 12/06/22 16:51 Interpretation Summary Limited views were obtained. Bubble contrast study negative for right to left interatrial shunt. Ordering Physician: Mimi Shahid Performed By: Paolo Samson RCS D/C Instructions Discharge Diet: - (salt restriction) Discharge Activity: - (Per PT recommendations) Meaningful Use Info Meaningful Use Diagnoses (Choose all that apply): None applicable Discharge Plan Admission Admit Date/Time: 11/30/22 13:15 Primary Reason for Your Visit: Fall, leg wounds Attending Provider: Mimi Shahid Primary Care Provider: Patricia Garcia Consulting Providers: Satya Erazo ; Wei Lucero ; Jason Carranza Instructions Patient Instructions: ED Fall Prevention Additional Instructions / Restrictions: DISCHARGE INSTRUCTIONS PLEASE READ -He will need to continue wound care of bilateral lower extremities with next dressing change on Tuesday, continue to follow with Dr. Garcia at the wound center upon discharge -You have had several medications changed during this hospital stay. You are no longer taking clonidine for blood pressure, please discontinue this. Your lisinopril dose was decreased to 10 mg daily. -Your methadone was held and you were given oxycodone as needed for your pain during this admission, will send with short prescription of oxycodone and will defer to your outpatient provider with regards to resuming methadone -You have been started on a daily aspirin -Your Coumadin was increased to 5 mg daily and you are presently subtherapeutic with an INR of 1.5 on 12/08/2022, recommend checking INR tomorrow with rechecks and adjustment per protocol. 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 Allison, on an outpatient basis due to this narrowing, please call upon discharge to schedule a hospital follow-up appointment -You were started on aspirin due to this narrowing and you have also been contin ued on Coumadin -Had an enlarged left inguinal lymph node that was 4.81 cm x 1.10 cm, can follow-up for further as an outpatient, may be reactive -Diet recommendations are sodium restricted diet with Xavier twice daily with meals to promote wound healing -Please call your primary care provider's office upon discharge to schedule a hospital follow up within 1 week. -For any concerning signs or symptoms please call 911 or proceed to the nearest emergency department Discharge Orders/Prescriptions Prescriptions: New aspirin 81 mg Tablet,Chewable 81 mg PO BREAKFAST Qty: 0 0RF oxycodone 5 mg Tablet 5 mg PO Q6H PRN PRN (Reason: Pain Score 4-10) 3 Days Qty: 20 0RF Continued niacin 50 mg tablet 25 mg PO DAILY Fish Oil 500 MG capsule 1,000 mg PO DAILY turmeric root extract 500 mg capsule 100 mg PO BID baclofen 10 mg tablet 10 mg PO .QID PRN (Reason: Muscle Spasm) ergocalciferol (vitamin D2) [Vitamin D2] 1,250 mcg (50,000 unit) Capsule 1,250 mcg PO WE coenzyme Q10 [CoQ-10] 100 mg Capsule 100 mg PO QODAY furosemide [Lasix] 40 mg Tablet 40 mg PO DAILY furosemide [Lasix] 20 mg Tablet 20 mg PO LUNCH Changed warfarin [Jantoven] 4 mg tablet 5 mg PO DAILY Qty: 30 0RF lisinopril 5 MG tablet 10 mg PO DAILY Qty: 30 0RF Label Comments: blood pressure Held methadone 10 mg tablet 10 mg PO Q12H Hold Instructions: Resume on 12/22/22. Will defer to outpatient provider for dose and timing of resumption of methadone Discontinued warfarin [Jantoven] 5 mg tablet 5 mg PO UD Clonidine Hcl 0.1 MG tablet 1 tab PO BID No Action phenytoin sodium extended [Dilantin Extended] 100 mg capsule 200 mg PO DAILY pregabalin [Lyrica] 75 mg capsule 75 mg PO TID phenytoin sodium extended [Dilantin Extended] 100 mg Capsule 100 mg PO QHS Referrals / Follow Up: Wei Allison MD [Med Staff - Active Staff] - Within 1 Month (Follow up with Dr. Allison, the vascular doctor, for the narrowing of your artery upon discharge. Please call to schedule an appointment) Patricia Garcia DO [Primary Care Provider] - Within 1 Week Disposition Disposition (needs filled in before D/C Order can be placed): [facility] Charges/Coding Visit Charges Inpatient E&M: 49287 Disch Hosp >30min
--- NOTE | 2022-12-08 14:19 | PHA.DC.MR ---
Pharmacy Service has performed discharge medication reconciliation for this patient. The patient's discharge medication list was reviewed for discrepancies and discrepancies were resolved. Home Medications omega-3 fatty acids 500 mg capsule (Fish Oil) 1,000 mg PO DAILY supplement 08/27/15 baclofen 10 mg tablet 10 mg PO .QID PRN Muscle Spasm 04/14/22 methadone 10 mg tablet 10 mg PO Q12H Check with primary doctor 04/14/22 niacin 50 mg tablet 25 mg PO DAILY Check with primary doctor 04/14/22 phenytoin sodium extended 100 mg capsule (Dilantin Extended) 200 mg PO DAILY Check with primary doctor 04/14/22 pregabalin 75 mg capsule (Lyrica) 75 mg PO TID Check with primary doctor 04/14/22 turmeric root extract 500 mg capsule 100 mg PO BID supplement 04/14/22 coenzyme Q10 100 mg capsule (CoQ-10) 100 mg PO QODAY Check with primary doctor 07/02/22 ergocalciferol (vitamin D2) 1,250 mcg (50,000 unit) capsule (Vitamin D2) 1,250 mcg PO WE Check with primary doctor 07/02/22 phenytoin sodium extended 100 mg capsule (Dilantin Extended) 100 mg PO QHS Check with primary doctor 07/02/22 furosemide 20 mg tablet (Lasix) 20 mg PO LUNCH 07/05/22 furosemide 40 mg tablet (Lasix) 40 mg PO DAILY 07/05/22 aspirin 81 mg chewable tablet 81 mg PO BREAKFAST #0 tabs 12/08/22 lisinopril 5 mg tablet 10 mg PO DAILY blood pressure #30 tabs 12/08/22 oxycodone 5 mg tablet 5 mg PO Q6H PRN PRN Pain Score 4-10 3 days #20 tabs 12/08/22 warfarin 4 mg tablet (Jantoven) 5 mg PO DAILY Blood thinner #30 tabs 12/08/22
--- NOTE | 2022-12-08 14:26 | CASEMGMT ---
LUIS received patient's orders. LUIS faxed orders to [facility]. LUIS spoke with patient about transportation. Patient said he will get his son to take him. SW told patient SW will let him know when SW has everything SW needs so he can notify his son. SW completed a 7000 in [facility]. Await COVID test. Plan: d/c to [facility] under skilled level of care on a convalescent stay. Family will transport patient. Sarah HOOKER
--- NOTE | 2022-12-08 14:33 | NURSING ---
Scalp sutures removed per MD orders. Site clean and well approximated.
--- NOTE | 2022-12-08 14:45 | CASEMGMT ---
Patient changed his mind and decided he would like wheelchair transport. LUIS confirmed this with patient. SW called [facility] and arranged for patient to get picked up at 4p via wheelchair. SW notified patient, RN, and psychiatric secretary. LUIS also called Christine at [facility] and left her a voice mail letting her know patient will be picked up at 4p. Plan: d/c to [facility] under skilled level of care on a convalescent stay. [facility] will transport patient via wheelchair van at 4p. Sarah HOOKER
--- NOTE | 2022-12-08 15:09 | CASEMGMT ---
SW faxed COVID test and shredder picker time to [facility]. Sarah Navarro PARTS COUNTER SALESPERSON INTRAVENOUS THERAPY NURSE
--- NOTE | 2022-12-08 15:53 | NURSING ---
Report called to Christine, admissions nurse.
== END 2022-12-08 16:27 | disposition skilled nursing facility (03) | DRG 602 ==
LOC: ED 13:01 → MS3 14:36 → PCU 12-06 13:32
PROVIDERS: Admitting Provider Internal Medicine; Emergency Provider Emergency Medicine; PCP Family Medicine; Visit Provider Internal Medicine
DX: L03.116 Cellulitis of left lower limb (principal); E43 Unspecified severe protein-calorie malnutrition; I69.354 Hemiplegia and hemiparesis following cerebral infarction affecting left non-dominant side; I82.513 Chronic embolism and thrombosis of femoral vein, bilateral; L97.212 Non-pressure chronic ulcer of right calf with fat layer exposed; L97.222 Non-pressure chronic ulcer of left calf with fat layer exposed; Z68.41 Body mass index [BMI] 40.0-44.9, adult; M32.9 Systemic lupus erythematosus, unspecified; S01.81XA Laceration without foreign body of other part of head, initial encounter; B96.5 Pseudomonas (aeruginosa) (mallei) (pseudomallei) as the cause of diseases classified elsewhere; G40.909 Epilepsy, unspecified, not intractable, without status epilepticus; I87.2 Venous insufficiency (chronic) (peripheral); I10 Essential (primary) hypertension; I89.0 Lymphedema, not elsewhere classified; S30.1XXA Contusion of abdominal wall, initial encounter; S40.011A Contusion of right shoulder, initial encounter; W01.10XA Fall on same level from slipping, tripping and stumbling with subsequent striking against unspecified object, initial encounter; L02.416 Cutaneous abscess of left lower limb; L03.115 Cellulitis of right lower limb; B95.62 Methicillin resistant Staphylococcus aureus infection as the cause of diseases classified elsewhere; Z66 Do not resuscitate; Z79.01 Long term (current) use of anticoagulants; Z79.891 Long term (current) use of opiate analgesic; R59.0 Localized enlarged lymph nodes; Z23 Encounter for immunization; Z79.899 Other long term (current) drug therapy; Z86.711 Personal history of pulmonary embolism; Y93.89 Activity, other specified; Y92.009 Unspecified place in unspecified non-institutional (private) residence as the place of occurrence of the external cause; G89.29 Other chronic pain
CPT/HCPCS: 36415; 70450; 70496; 70498; 70551; 72125; 73030; 73590; 74176; 80048; 80053; 80061; 80076; 80185; 80202; 82962; 83036; 83880; 84134; 85025; 85610; 85652; 85730; 86140; 87040; 87070; 87075; 87077; 87184; 87186; 87205; 87426; 87640; 90715; 93306; 93308; 93880; 93970; 94002; 94668; 94762; 97110; 97116; 97162; 97166; 97530; 97535; 97802; 99285; J7040; J7050; Q9967; A4216; J1940

== ENCOUNTER 2023-01-07 10:00 | Outpatient (RCR) | payer MEDICARE, OTHER, SELFPAY ==
[2022-12-08 00:09] VITALS: BP 111/72; PULSE 73; RESP 18; TEMP 36.6
[2022-12-10 09:39] VITALS: BP 117/79; PULSE 85; RESP 22; TEMP 36.1
--- NOTE | 2022-12-10 13:58 | PCM.WC.PN ---
History of Present Illness Date of Service: 12/10/22 Chief Complaint: venous ulcers of bilateral lower extremities History of Wound: Mauricio is a 67 yo gentleman who is here today for evaluation of ulcers to to his bilateral lower legs. He has been treated multiple times in the past at the wound healing center for similar ulcers. The left LE ulcer started after he developed increased swelling and blisters of left leg in October and the right leg started sometime at the end of October. He was seen at PCP's office a culture was taken and it was resistant to several antibiotics. He was treated initially with Levaquin but had myalgias and then was treated with doxycycline which he finished 2 days ago. He denies improvement and is having swelling to his left calf and thigh. He has been having swelling to both lower extremities for many years and it has worsened over the last few months. He has not been compliant with compression. He has had increased pain especially in the left leg. He has clear yellow drainage and redness without odor or warmth. He is anti-coagulated on coumadin. He has been washing with Dial soap and witch ifrah. He had been using Collagen at times and using Calcium Alginate and covering with ABD pads during October. He was treated with 3M compression and Aquacel Ag. He was referred to the wound center for ongoing treatment. His ulcers have moderate to heavy drainage. He was recently hospitalized for cellulitis and edema for the last 10 days. Discharged on 12/09/22 and is currently in the Skilled section of [facility]. Subjective Subjective He was in the hospital from 11/30/22 until 12/09/22 for treatment of cellulitis and edema. He underwent treatment with Vancomycin and IV lasix and compression. Objective Data Objective Data Vital Signs: Vital Signs Temp Pulse Resp BP 97 F L 85 22 H 117/79 12/10/22 09:39 12/10/22 09:39 12/10/22 09:39 12/10/22 09:39 Physical Exam Const alert, oriented x3 and no apparent distress General Appearance: cooperative and comfortable HEENT normocephalic and head/scalp atraumatic Lymph Lymphatic: lymphedema severe Resp normal respiratory effort Effort and Inspection: able to speak in complete sentences Cardio regular rate and regular rhythm Extremity General Extremity: edema bilateral lower extremity Details: severe Skin Wounds: wounds noted Wound Narrative: as in clinical panel Psych mental status grossly normal, thought process normal, cooperative and affect normal Debridement Note Debridement Note Wound debrided: LLE cluster Laterality: Left Type of Debridement: Excisional debridement Anesthesia Used: 4% Lidocaine Solution Depth: Down to and including healthy tissue and in the subcutaneous layer Percentage of wound debrided: 100 Instrument Used: 5mm curette Tissue Removed: Yellow slough, devitalized tissue Severity: Fat Layer Exposed Amount of bleeding with debridement: Mild Bleeding Controlled with: Compression and gauze Patient tolerated procedure: Patient tolerated procedure well Post-Debridement Measurements and Additional Note: Post-Debridement Measurements/Treatment - Nurse 1 - General Ulcer Assessment Start: 12/10/22 09:38 Freq: Status: Active Protocol: ONDINA Activity Type Activity Date Activity User E-sign Co-sign Detail Recorded Client Recorded Date Recorded By Document 12/10/22 09:39 DL [id number] 12/10/22 09:51 DL 12/10/22 09:39 WC - Today's Visit Information Type of service Follow-up Visit (Physician/[employer] ) Arrival Mode Wheelchair Transfer Assistance Manual Transfer Assist (Other) x1 Patient Identification Verified (Name & Yes ) Patient Requires Transmission-Based No Precautions Vital Signs Temperature (97.8 F-99.1 F) 97 F L Temperature Source Temporal Pulse Rate (60-100) 85 Pulse Location Monitor Respiratory Rate (12-18) 22 H Blood Pressure (90/60-120/80) 117/79 Blood Pressure Mean (mm Hg) 91 Source Monitor History Since Last Visit- (Skip if this is Patient's initial visit) Have you changed medications since your No last visit? Any new allergies or adverse reactions No Had a fall/change in ADL's that may No increase risk of falls Signs or symptoms of abuse and/or No neglect since last visit Has dressing in place as prescribed Yes Has compression in place as prescribed Yes Has offloadiing in place as prescribed N/A Experienced any changes in pain level or No management Left Footwear Slipper Right Footwear Slipper Pain Scale: 0-10 Numeric Is Patient Pain Free? Yes - Nurse 1 - General Ulcer Measurement Start: 12/10/22 09:38 Freq: Status: Active Protocol: Activity Type Activity Date Activity User E-sign Co-sign Detail Recorded Client Recorded Date Recorded By Document 12/10/22 09:39 DL [id number] 12/10/22 09:51 DL 12/10/22 09:39 Wound Center Nurse 1 16. LLE cluster -Current Size (cm) - Length 29.5 -Current Size (cm) - Width 16 -Current Size (cm) - Depth 0.1 -Total Square Cm 472.0 -Photo Taken No -Exudate Amt Medium -Exudate Type Serosanguineous -Wound Margin Indistinct, Non -Visible -Granulation Quality Red -Necrosis Amt Small (1-33%) -Necrotic Tissue Type Adherent Slough -Structure Exposed N/A -Texture (Marie-wound Skin Appearance) Localized Edema ,Scarring -Moisture (Marie-wound Skin Appearance) Dry/Scaly -Color (Marie-wound Skin Appearance) Ecchymosis, Erythema, Hemosiderin Staining -Temperature (Marie-wound Skin No Abnormality Appearance) (Pt Warm) -Tenderness on Palpation (Marie-wound No Skin Appearance) -Foul Odor after Cleansing No -Anesthetic Used 4% Lidocaine Solution #17 right lateral LE cluster -Current Size (cm) - Length 3 -Current Size (cm) - Width 5.1 -Current Size (cm) - Depth 0.1 -Total Square Cm 15.3 -Photo Taken No -Exudate Amt Medium -Exudate Type Serosanguineous -Wound Margin Indistinct, Non -Visible -Granulation Amt Large (67-100%) -Granulation Quality Red -Necrosis Amt None Present (0 %) -Structure Exposed N/A -Texture (Marie-wound Skin Appearance) Localized Edema ,Scarring -Moisture (Marie-wound Skin Appearance) Dry/Scaly -Color (Marie-wound Skin Appearance) Ecchymosis, Erythema, Hemosiderin Staining -Temperature (Marie-wound Skin No Abnormality Appearance) (Pt Warm) -Tenderness on Palpation (Marie-wound No Skin Appearance) -Ulcer Cleansing Soap and Water -Foul Odor after Cleansing No -Anesthetic Used 5% Lidocaine Gel 15.RLE medial -Current Size (cm) - Length 5 -Current Size (cm) - Width 6 -Current Size (cm) - Depth 0.1 -Total Square Cm 30 -Photo Taken No -Exudate Amt Medium -Exudate Type Serosanguineous -Wound Margin Indistinct, Non -Visible -Granulation Amt Medium (34-66%) -Granulation Quality Red -Necrosis Amt Medium (34-66%) -Necrotic Tissue Type Adherent Slough -Structure Exposed N/A -Texture (Marie-wound Skin Appearance) Localized Edema ,Scarring -Moisture (Marie-wound Skin Appearance) Dry/Scaly -Color (Marie-wound Skin Appearance) Ecchymosis, Erythema, Hemosiderin Staining -Tenderness on Palpation (Marie-wound No Skin Appearance) -Ulcer Cleansing Soap and Water -Foul Odor after Cleansing No -Anesthetic Used 4% Lidocaine Solution Right Calf (cm) 43.5 Right Ankle (cm) 27 Left Calf (cm) 43.5 Left Ankle (cm) 29 WC - Nurse 2 - General Ulcer CM Notes Start: 12/10/22 09:38 Freq: Status: Active Protocol: Activity Type Activity Date Activity User E-sign Co-sign Detail Recorded Client Recorded Date Recorded By Document 12/10/22 10:18 MW [id number] 12/10/22 11:06 MW 12/10/22 10:18 Wound Center Nurse 2 16. LLE cluster -Time 10:20 -Correct Patient Yes -Correct Side, Site, Position Yes -Correct Procedure Yes -Procedure Performed No -Tunneling No -Undermining/Tunneling No -Circular Undermining No -Wound/Ulcer Outcome Converted #19 Left Lateral LE cluster -Time 10:56 -Correct Patient Yes -Correct Side, Site, Position Yes -Correct Procedure Yes -Procedure Performed Yes -Type of Procedure Debridement -Clinical Debridement Subcutaneous -Tissue Removed Subcutaneous -Post Debridement (cm) - Length 10.5 -Post Debridement (cm) - Width 8.5 -Post Debridement (cm) - Depth 0.1 -Total Square (Post) (cm) 89.25 -Area of Debridement (cm) - Length 10.5 -Area of Debridement (cm) - Width 8.5 -Total Square (Area) (cm) 89.25 -Tunneling No -Undermining/Tunneling No -Circular Undermining No -Wound/Ulcer Outcome Not Healed -Ulcer Cleansing Rinsed/ Irrigated with Saline -Foul Odor after Cleansing No -Bioengineered Tissue No -Bleeding Controlled with Pressure -Treatment Response Procedure Tolerated Well -Offloading No -Debridement - Subq, 1st 20sq cm No #18 Left medial LE cluster -Time 10:55 -Correct Patient Yes -Correct Side, Site, Position Yes -Correct Procedure Yes -Procedure Performed Yes -Type of Procedure Debridement -Clinical Debridement Subcutaneous -Tissue Removed Subcutaneous -Post Debridement (cm) - Length 17.0 -Post Debridement (cm) - Width 13.0 -Post Debridement (cm) - Depth 0.1 -Total Square (Post) (cm) 221.00 -Area of Debridement (cm) - Length 17.0 -Area of Debridement (cm) - Width 13.0 -Total Square (Area) (cm) 221.00 -Tunneling No -Undermining/Tunneling No -Circular Undermining No -Wound/Ulcer Outcome Not Healed -Ulcer Cleansing Rinsed/ Irrigated with Saline -Foul Odor after Cleansing No -Bioengineered Tissue No -Bleeding Controlled with Pressure -Treatment Response Procedure Tolerated Well -Offloading No -Debridement - Subq, 1st 20sq cm No #17 right lateral LE cluster -Time 10:18 -Correct Patient Yes -Correct Side, Site, Position Yes -Correct Procedure Yes -Procedure Performed Yes -Type of Procedure Debridement -Clinical Debridement Subcutaneous -Tissue Removed Subcutaneous -Post Debridement (cm) - Length 2.5 -Post Debridement (cm) - Width 5.0 -Post Debridement (cm) - Depth 0.1 -Total Square (Post) (cm) 12.50 -Area of Debridement (cm) - Length 2.5 -Area of Debridement (cm) - Width 5.0 -Total Square (Area) (cm) 12.50 -Tunneling No -Undermining/Tunneling No -Circular Undermining No -Wound/Ulcer Outcome Not Healed -Ulcer Cleansing Rinsed/ Irrigated with Saline -Foul Odor after Cleansing No -Bioengineered Tissue No -Bleeding Controlled with Pressure -Treatment Response Procedure Tolerated Well -Offloading No -Debridement - Subq, 1st 20sq cm Yes -Debridement, SubQ, ea addt'l 20sq cm 16 or part thereof 15.RLE medial -Time 10:25 -Correct Patient Yes -Correct Side, Site, Position Yes -Correct Procedure Yes -Procedure Performed Yes -Type of Procedure Debridement -Clinical Debridement Subcutaneous -Tissue Removed Subcutaneous -Post Debridement (cm) - Length 1.0 -Post Debridement (cm) - Width 0.8 -Post Debridement (cm) - Depth 0.1 -Total Square (Post) (cm) 0.80 -Area of Debridement (cm) - Length 1.0 -Area of Debridement (cm) - Width 0.8 -Total Square (Area) (cm) 0.80 -Tunneling No -Undermining/Tunneling No -Circular Undermining No -Wound/Ulcer Outcome Not Healed -Ulcer Cleansing Rinsed/ Irrigated with Saline -Foul Odor after Cleansing No -Bioengineered Tissue No -Bleeding Controlled with Pressure -Treatment Response Procedure Tolerated Well -Offloading No -Debridement - Subq, 1st 20sq cm No Pain Scale: 0-10 Numeric Is Patient Pain Free? Yes - Nurse 3 - General Ulcer D/C NN Start: 12/10/22 09:38 Freq: Status: Active Protocol: Activity Type Activity Date Activity User E-sign Co-sign Detail Recorded Client Recorded Date Recorded By Document 12/10/22 11:09 DL [id number] 12/10/22 11:12 DL 12/10/22 11:09 Wound Care Center Nurse 3 #19 Left Lateral LE cluster -Ulcer Cleansing Rinsed/ Irrigated with Saline -Foul Odor after Cleansing No -Primary Dressing Applied Aquacel Extra, NonAdherent Contact Layer -Primary Dressing Covered/Secured with Dry Gauze & Roll Gauze, Secured with Tape -Aquacel Extra 1 #18 Left medial LE cluster -Ulcer Cleansing Rinsed/ Irrigated with Saline -Foul Odor after Cleansing No -Primary Dressing Applied Aquacel Extra, NonAdherent Contact Layer -Primary Dressing Covered/Secured with Dry Gauze & Roll Gauze, Secured with Tape -Aquacel Extra 1 #17 right lateral LE cluster -Ulcer Cleansing Rinsed/ Irrigated with Saline -Foul Odor after Cleansing No -Primary Dressing Applied Aquacel Extra, NonAdherent Contact Layer -Primary Dressing Covered/Secured with Dry Gauze & Roll Gauze, Secured with Tape -Aquacel Extra 1 15.RLE medial -Ulcer Cleansing Rinsed/ Irrigated with Saline -Foul Odor after Cleansing No -Primary Dressing Applied NonAdherent Contact Layer -Other Dressing aquacel EX -Primary Dressing Covered/Secured with Dry Gauze & Roll Gauze, Secured with Tape Left -Compression Wrap Marcio Wrap Right -Compression Wrap Marcio Wrap Treatment Response Procedure Tolerated Well Pain Scale: 0-10 Numeric Is Patient Pain Free? Yes WC - Visit Discharge Discharge Condition Stable Ambulatory Status Wheelchair Transportation ECF trans Facility Type Long-Term Care Facility Orders Sent Yes Additional Wound Wound debrided: right medial LE Laterality: Right Type of Debridement: Selective debridement Anesthesia Used: 4% Lidocaine Solution Depth: Down to and including healthy tissue and in the subcutaneous layer Percentage of wound debrided: 100 Instrument Used: 5mm curette Tissue Removed: Yellow slough, devitalized tissue Severity: Fat Layer Exposed Amount of bleeding with debridement: Mild Bleeding Controlled with: Compression and gauze Patient tolerated procedure: Patient tolerated procedure well Assessment/Plan Assessment/Plan (1) Ulcer of right lower extremity with fat layer exposed: CODE(S): L97.912 - Non-pressure chronic ulcer of unspecified part of right lower leg with fat layer exposed (2) Ulcer of left lower extremity with fat layer exposed: CODE(S): L97.922 - Non-pressure chronic ulcer of unspecified part of left lower leg with fat layer exposed (3) Venous insufficiency: CODE(S): I87.2 - Venous insufficiency (chronic) (peripheral) (4) Edema: CODE(S): R60.9 - Edema, unspecified QUALIFIERS: Edema type: unspecified Qualified Code(s): R60.9 - Edema, unspecified (5) History of CVA (cerebrovascular accident): CODE(S): Z86.73 - Personal history of transient ischemic attack (TIA), and cerebral infarction without residual deficits (6) Venous ulcer of left lower extremity with varicose veins: CODE(S): I83.029 - Varicose veins of left lower extremity with ulcer of unspecified site (7) Venous ulcer of both lower extremities with varicose veins: CODE(S): I83.019 - Varicose veins of right lower extremity with ulcer of unspecified site; I83.029 - Varicose veins of left lower extremity with ulcer of unspecified site (8) Venous ulcers of both lower extremities: CODE(S): I87.2 - Venous insufficiency (chronic) (peripheral) (9) Lymphedema: CODE(S): I89.0 - Lymphedema, not elsewhere classified PLAN: Plan Debridement performed today in clinic as annotated above. At home wound-care instructions: Apply adaptic, Aquacel Extra, apply ABD and wrap with gauze and MARCIO bandages. Off-loading: The patient was instructed to avoid pressure and friction on the affected areas. Reposition every 2 hours at minimum. Avoid prolonged standing and/or dangling of legs. When seated, feet should be elevated at chest level. Frequent ambulation is encouraged. Diet: Patient encouraged to increase protein intake while taking caution to avoid high carbohydrate and/or sugar intake. Labs/cultures/imaging: Follow-up: Return in 1 week for wound care follow up. Return sooner or report to the emergency room should symptoms worsen, or new symptoms arise. Note: [employer] speech recognition beam doffer software was used to create portions of this document. Sound-alike and misspelled words, as well as other beam doffer errors may be contained in the documentation.
[2022-12-17 09:35] VITALS: BP 149/87; PULSE 75; RESP 16; TEMP 35.9
--- NOTE | 2022-12-17 13:00 | PCM.WC.PN ---
History of Present Illness Date of Service: 12/17/22 Chief Complaint: venous ulcers of bilateral lower extremities History of Wound: Mauricio is a 67 yo gentleman who is here today for evaluation of ulcers to to his bilateral lower legs. He has been treated multiple times in the past at the wound healing center for similar ulcers. The left LE ulcer started after he developed increased swelling and blisters of left leg in October and the right leg started sometime at the end of October. He was seen at PCP's office a culture was taken and it was resistant to several antibiotics. He was treated initially with Levaquin but had myalgias and then was treated with doxycycline which he finished 2 days ago. He denies improvement and is having swelling to his left calf and thigh. He has been having swelling to both lower extremities for many years and it has worsened over the last few months. He has not been compliant with compression. He has had increased pain especially in the left leg. He has clear yellow drainage and redness without odor or warmth. He is anti-coagulated on coumadin. He has been washing with Dial soap and witch ifrah. He had been using Collagen at times and using Calcium Alginate and covering with ABD pads during October. He was treated with 3M compression and Aquacel Ag. He was referred to the wound center for ongoing treatment. His ulcers have moderate to heavy drainage. He was recently hospitalized for cellulitis and edema for the last 10 days. Discharged on 12/09/22 and is currently in the Skilled section of [facility]. He will return to his assisted living apartment on Tuesday12/21/22. Subjective Subjective He was in the hospital from 11/30/22 until 12/09/22 for treatment of cellulitis and edema. He underwent treatment with Vancomycin and IV lasix and compression. He tolerated treatment this week with adaptic, Aquacel and gauze and KATE bandages. A wound care nurse did see him on Tuesday and applied Medihoney to his legs which caused swelling and irritation per the patient. Objective Data Objective Data Vital Signs: Vital Signs Temp Pulse Resp BP O2 Del Method 96.7 F L 75 16 149/87 H Room Air 12/17/22 09:35 12/17/22 09:35 12/17/22 09:35 12/17/22 09:35 12/17/22 09:35 Oxygen Delivery Method Room Air Physical Exam Const alert, oriented x3 and no apparent distress General Appearance: cooperative and comfortable HEENT normocephalic and head/scalp atraumatic Lymph Lymphatic: lymphedema moderate Resp normal respiratory effort Effort and Inspection: able to speak in complete sentences Cardio regular rate and regular rhythm Extremity General Extremity: edema bilateral lower extremity Details: severe Skin Wounds: wounds noted Wound Narrative: as in clinical panel Psych mental status grossly normal, thought process normal, cooperative and affect normal Debridement Note Debridement Note Wound debrided: LLE cluster Laterality: Left Type of Debridement: Excisional debridement Anesthesia Used: 4% Lidocaine Solution Depth: Down to and including healthy tissue and in the subcutaneous layer Percentage of wound debrided: 100 Instrument Used: 5mm curette Tissue Removed: Yellow slough, devitalized tissue Severity: Fat Layer Exposed Amount of bleeding with debridement: Mild Bleeding Controlled with: Compression and gauze Patient tolerated procedure: Patient tolerated procedure well Post-Debridement Measurements and Additional Note: Post-Debridement Measurements/Treatment DEBBIE - Nurse 1 - General Ulcer Assessment Start: 12/10/22 09:38 Freq: Status: Active Protocol: ONDINA Activity Type Activity Date Activity User E-sign Co-sign Detail Recorded Client Recorded Date Recorded By Document 12/10/22 09:39 DL [id number] 12/10/22 09:51 DL Document 12/17/22 09:35 [facility] [id number] 12/17/22 09:48 BMF 12/10/22 12/17/22 09:39 09:35 - Today's Visit Information Type of service Follow-up Visit Follow-up Visit (Physician/COLUMN PRECASTER (Physician/[facility]UM[facility] PRECASTER ) ) Arrival Mode Wheelchair Wheelchair Transfer Assistance Manual Other Transfer Assist (Other) x1 2 min assist Patient Identification Verified (Name & Yes Yes ) Patient Requires Transmission-Based No No Precautions Vital Signs Temperature (97.8 F-99.1 F) 97 F L 96.7 F L Temperature Source Temporal Temporal Pulse Rate (60-100) 85 75 Pulse Location Monitor Monitor Respiratory Rate (12-18) 22 H 16 Respiratory rate source Observation Oxygen Delivery Method Room Air Blood Pressure (90/60-120/80) 117/79 149/87 H Blood Pressure Mean (mm Hg) 91 107 Source Monitor Monitor Position Sitting Blood Pressure Location Right Forearm History Since Last Visit- (Skip if this is Patient's initial visit) Have you changed medications since your No No last visit? Any new allergies or adverse reactions No No Had a fall/change in ADL's that may No No increase risk of falls Signs or symptoms of abuse and/or No No neglect since last visit Have you been in the hospital since your No last visit? Has dressing in place as prescribed Yes Yes Has compression in place as prescribed Yes Yes Has offloadiing in place as prescribed N/A N/A Experienced any changes in pain level or No management Left Footwear Slipper Regular Shoe Right Footwear Slipper Regular Shoe Pain Scale: 0-10 Numeric Is Patient Pain Free? Yes Yes WC - Nurse 1 - General Ulcer Measurement Start: 12/10/22 09:38 Freq: Status: Active Protocol: Activity Type Activity Date Activity User E-sign Co-sign Detail Recorded Client Recorded Date Recorded By Document 12/10/22 09:39 DL [id number] 12/10/22 09:51 DL Document 12/17/22 09:35 [facility] [id number] 12/17/22 09:48 BMF 12/10/22 12/17/22 09:39 09:35 Wound Center Nurse 1 16. LLE cluster -Current Size (cm) - Length 29.5 -Current Size (cm) - Width 16 -Current Size (cm) - Depth 0.1 -Total Square Cm 472.0 -Photo Taken No -Exudate Amt Medium -Exudate Type Serosanguineous -Wound Margin Indistinct, Non -Visible -Granulation Quality Red -Necrosis Amt Small (1-33%) -Necrotic Tissue Type Adherent Slough -Structure Exposed N/A -Texture (Marie-wound Skin Appearance) Localized Edema ,Scarring -Moisture (Marie-wound Skin Appearance) Dry/Scaly -Color (Marie-wound Skin Appearance) Ecchymosis, Erythema, Hemosiderin Staining -Temperature (Marie-wound Skin No Abnormality Appearance) (Pt Warm) -Tenderness on Palpation (Marie-wound No Skin Appearance) -Foul Odor after Cleansing No -Anesthetic Used 4% Lidocaine Solution 15.RLE medial -Combined with other wound No -Current Size (cm) - Length 5 0.1 -Current Size (cm) - Width 6 0.1 -Current Size (cm) - Depth 0.1 0.1 -Total Square Cm 30 0.01 -Photo Taken No -Epithelialization Large 67-100% -Tunneling No -Undermining/Tunneling No -Circular Undermining No -Exudate Amt Medium None Present -Exudate Type Serosanguineous -Wound Margin Indistinct, Non -Visible -Granulation Amt Medium (34-66%) -Granulation Quality Red -Necrosis Amt Medium (34-66%) -Necrotic Tissue Type Adherent Slough -Structure Exposed N/A -Texture (Marie-wound Skin Appearance) Localized Edema Assessed ,Scarring -Moisture (Marie-wound Skin Appearance) Dry/Scaly Assessed,Dry/ Scaly -Color (Marie-wound Skin Appearance) Ecchymosis, Assessed, Erythema, Hemosiderin Hemosiderin Staining Staining -Temperature (Marie-wound Skin No Abnormality Appearance) (Pt Warm) -Tenderness on Palpation (Marie-wound No No Skin Appearance) -Ulcer Cleansing Soap and Water Soap and Water -Foul Odor after Cleansing No No -Anesthetic Used 4% Lidocaine 4% Lidocaine Solution Solution #19 Left Lateral LE cluster -Combined with other wound No -Current Size (cm) - Length 17 -Current Size (cm) - Width 12.5 -Current Size (cm) - Depth 0.1 -Total Square Cm 212.5 -Photo Taken No -Epithelialization Small 1-33% -Tunneling No -Undermining/Tunneling No -Circular Undermining No -Exudate Amt Medium -Exudate Type Serosanguineous -Wound Margin Distinct, Outline Attached -Granulation Amt Medium (34-66%) -Granulation Quality Red -Slough/Fibrin Yes -Necrosis Amt Medium (34-66%) -Necrotic Tissue Type Adherent Slough -Texture (Marie-wound Skin Appearance) Assessed, Scarring -Moisture (Marie-wound Skin Appearance) Assessed,Dry/ Scaly -Color (Marie-wound Skin Appearance) Assessed, Hemosiderin Staining -Temperature (Marie-wound Skin No Abnormality Appearance) (Pt Warm) -Tenderness on Palpation (Marie-wound No Skin Appearance) -Ulcer Cleansing Soap and Water -Foul Odor after Cleansing No -Anesthetic Used 4% Lidocaine Solution #18 Left medial LE cluster -Combined with other wound No -Current Size (cm) - Length 17 -Current Size (cm) - Width 16.8 -Current Size (cm) - Depth 0.1 -Total Square Cm 285.6 -Photo Taken No -Epithelialization Small 1-33% -Tunneling No -Undermining/Tunneling No -Circular Undermining No -Exudate Amt Medium -Exudate Type Serosanguineous -Wound Margin Distinct, Outline Attached -Granulation Amt Large (67-100%) -Granulation Quality Red -Slough/Fibrin Yes -Necrosis Amt Small (1-33%) -Necrotic Tissue Type Adherent Slough -Texture (Marie-wound Skin Appearance) Assessed, Scarring -Moisture (Marie-wound Skin Appearance) Assessed,Dry/ Scaly -Color (Marie-wound Skin Appearance) Assessed, Hemosiderin Staining -Temperature (Marie-wound Skin No Abnormality Appearance) (Pt Warm) -Tenderness on Palpation (Marie-wound No Skin Appearance) -Ulcer Cleansing Soap and Water -Foul Odor after Cleansing No -Anesthetic Used 4% Lidocaine Solution #17 right lateral LE cluster -Combined with other wound No -Current Size (cm) - Length 3 3.8 -Current Size (cm) - Width 5.1 5 -Current Size (cm) - Depth 0.1 0.1 -Total Square Cm 15.3 19.0 -Photo Taken No No -Epithelialization Small 1-33% -Tunneling No -Undermining/Tunneling No -Circular Undermining No -Exudate Amt Medium Small -Exudate Type Serosanguineous Serosanguineous -Wound Margin Indistinct, Non Flat & Intact -Visible -Granulation Amt Large (67-100%) Medium (34-66%) -Granulation Quality Red Red -Slough/Fibrin Yes -Necrosis Amt None Present (0 Medium (34-66%) %) -Necrotic Tissue Type Adherent Slough -Structure Exposed N/A -Texture (Marie-wound Skin Appearance) Localized Edema Assessed, ,Scarring Scarring -Moisture (Marie-wound Skin Appearance) Dry/Scaly Assessed,Dry/ Scaly -Color (Marie-wound Skin Appearance) Ecchymosis, Assessed, Erythema, Hemosiderin Hemosiderin Staining Staining -Temperature (Marie-wound Skin No Abnormality No Abnormality Appearance) (Pt Warm) (Pt Warm) -Tenderness on Palpation (Marie-wound No No Skin Appearance) -Ulcer Cleansing Soap and Water Soap and Water -Foul Odor after Cleansing No No -Anesthetic Used 5% Lidocaine 4% Lidocaine Gel Solution Lower Limb Edema Present Yes Right Calf (cm) 43.5 40 Right Ankle (cm) 27 27 Left Calf (cm) 43.5 43 Left Ankle (cm) 29 26.5 WC - Nurse 2 - General Ulcer CM Notes Start: 12/10/22 09:38 Freq: Status: Active Protocol: Activity Type Activity Date Activity User E-sign Co-sign Detail Recorded Client Recorded Date Recorded By Document 12/10/22 10:18 MW [id number] 12/10/22 11:06 MW Document 12/17/22 09:58 BMF [id number] 12/17/22 10:35 BMF Edit Result 12/17/22 09:58 BMF (1) [id number] 12/17/22 12:48 PL (1) #17 right lateral LE cluster - Debridement - Subq, 1st 20sq cm No => Yes - Debridement, SubQ, ea addt'l 20sq cm => 11 or part thereof 12/10/22 12/17/22 10:18 09:58 Wound Center Nurse 2 16. LLE cluster -Time 10:20 -Correct Patient Yes -Correct Side, Site, Position Yes -Correct Procedure Yes -Procedure Performed No -Tunneling No -Undermining/Tunneling No -Circular Undermining No -Wound/Ulcer Outcome Converted 15.RLE medial -Time 10:25 10:06 -Correct Patient Yes Yes -Correct Side, Site, Position Yes Yes -Correct Procedure Yes Yes -Procedure Performed Yes Yes -Type of Procedure Debridement Debridement -Clinical Debridement Subcutaneous Subcutaneous -Tissue Removed Subcutaneous Subcutaneous -Post Debridement (cm) - Length 1.0 0 -Post Debridement (cm) - Width 0.8 0 -Post Debridement (cm) - Depth 0.1 0 -Total Square (Post) (cm) 0.80 0 -Area of Debridement (cm) - Length 1.0 0 -Area of Debridement (cm) - Width 0.8 0 -Total Square (Area) (cm) 0.80 0 -Tunneling No No -Undermining/Tunneling No No -Circular Undermining No No -Wound/Ulcer Outcome Not Healed Healed- Epithelialized -Ulcer Cleansing Rinsed/ Rinsed/ Irrigated with Irrigated with Saline Saline -Foul Odor after Cleansing No No -Bioengineered Tissue No No -Bleeding Controlled with Pressure Pressure -Treatment Response Procedure Procedure Tolerated Well Tolerated Well -Offloading No -Assistive Device(s) Wheelchair -Debridement - Subq, 1st 20sq cm No No #19 Left Lateral LE cluster -Time 10:56 10:01 -Correct Patient Yes Yes -Correct Side, Site, Position Yes Yes -Correct Procedure Yes Yes -Procedure Performed Yes Yes -Type of Procedure Debridement Debridement -Clinical Debridement Subcutaneous Subcutaneous -Tissue Removed Subcutaneous Subcutaneous -Post Debridement (cm) - Length 10.5 10 -Post Debridement (cm) - Width 8.5 7 -Post Debridement (cm) - Depth 0.1 0.1 -Total Square (Post) (cm) 89.25 70 -Area of Debridement (cm) - Length 10.5 10 -Area of Debridement (cm) - Width 8.5 7 -Total Square (Area) (cm) 89.25 70 -Tunneling No No -Undermining/Tunneling No No -Circular Undermining No No -Wound/Ulcer Outcome Not Healed Not Healed -Ulcer Cleansing Rinsed/ Rinsed/ Irrigated with Irrigated with Saline Saline -Foul Odor after Cleansing No No -Bioengineered Tissue No No -Bleeding Controlled with Pressure -Treatment Response Procedure Procedure Tolerated Well Tolerated Well -Offloading No -Assistive Device(s) Wheelchair -Debridement - Subq, 1st 20sq cm No No #18 Left medial LE cluster -Time 10:55 10:02 -Correct Patient Yes Yes -Correct Side, Site, Position Yes Yes -Correct Procedure Yes Yes -Procedure Performed Yes Yes -Type of Procedure Debridement Debridement -Clinical Debridement Subcutaneous Subcutaneous -Tissue Removed Subcutaneous Subcutaneous -Post Debridement (cm) - Length 17.0 14 -Post Debridement (cm) - Width 13.0 11 -Post Debridement (cm) - Depth 0.1 0.1 -Total Square (Post) (cm) 221.00 154 -Area of Debridement (cm) - Length 17.0 14 -Area of Debridement (cm) - Width 13.0 11 -Total Square (Area) (cm) 221.00 154 -Tunneling No No -Undermining/Tunneling No No -Circular Undermining No No -Wound/Ulcer Outcome Not Healed Not Healed -Ulcer Cleansing Rinsed/ Rinsed/ Irrigated with Irrigated with Saline Saline -Foul Odor after Cleansing No No -Bioengineered Tissue No No -Bleeding Controlled with Pressure -Treatment Response Procedure Procedure Tolerated Well Tolerated Well -Offloading No -Assistive Device(s) Wheelchair -Debridement - Subq, 1st 20sq cm No No #17 right lateral LE cluster -Time 10:18 10:05 -Correct Patient Yes Yes -Correct Side, Site, Position Yes Yes -Correct Procedure Yes Yes -Procedure Performed Yes Yes -Type of Procedure Debridement Debridement -Clinical Debridement Subcutaneous Subcutaneous -Tissue Removed Subcutaneous Subcutaneous -Post Debridement (cm) - Length 2.5 0.5 -Post Debridement (cm) - Width 5.0 2.9 -Post Debridement (cm) - Depth 0.1 0.1 -Total Square (Post) (cm) 12.50 1.45 -Area of Debridement (cm) - Length 2.5 0.5 -Area of Debridement (cm) - Width 5.0 2.9 -Total Square (Area) (cm) 12.50 1.45 -Tunneling No No -Undermining/Tunneling No No -Circular Undermining No No -Wound/Ulcer Outcome Not Healed Not Healed -Ulcer Cleansing Rinsed/ Rinsed/ Irrigated with Irrigated with Saline Saline -Foul Odor after Cleansing No No -Bioengineered Tissue No No -Bleeding Controlled with Pressure Pressure -Treatment Response Procedure Procedure Tolerated Well Tolerated Well -Offloading No -Assistive Device(s) Wheelchair -Debridement - Subq, 1st 20sq cm Yes Yes -Debridement, SubQ, ea addt'l 20sq cm 16 11 or part thereof Pain Scale: 0-10 Numeric Is Patient Pain Free? Yes Yes WC - Nurse 3 - General Ulcer D/C NN Start: 12/10/22 09:38 Freq: Status: Active Protocol: Activity Type Activity Date Activity User E-sign Co-sign Detail Recorded Client Recorded Date Recorded By Document 12/10/22 11:09 DL [id number] 12/10/22 11:12 DL Document 12/17/22 11:30 RB [id number] 12/17/22 11:34 RB 12/10/22 12/17/22 11:09 11:30 Wound Care Center Nurse 3 15.RLE medial -Ulcer Cleansing Rinsed/ Rinsed/ Irrigated with Irrigated with Saline Saline -Foul Odor after Cleansing No -Primary Dressing Applied NonAdherent NonAdherent Contact Layer Contact Layer -Other Dressing aquacel EX AQUACEL EXTRA -Primary Dressing Covered/Secured with Dry Gauze & Dry Gauze,Dry Roll Gauze, Gauze & Roll Secured with Gauze,Secured Tape with Tape #19 Left Lateral LE cluster -Ulcer Cleansing Rinsed/ Rinsed/ Irrigated with Irrigated with Saline Saline -Foul Odor after Cleansing No -Primary Dressing Applied Aquacel Extra, Aquacel Extra, NonAdherent NonAdherent Contact Layer Contact Layer -Other Dressing DOUBLE LAYER ADAPTIC/ AQUACEL/ ABD PAD -Primary Dressing Covered/Secured with Dry Gauze & Dry Gauze,Dry Roll Gauze, Gauze & Roll Secured with Gauze,Secured Tape with Tape -Aquacel Extra 1 2 #18 Left medial LE cluster -Ulcer Cleansing Rinsed/ Irrigated with Saline -Foul Odor after Cleansing No -Primary Dressing Applied Aquacel Extra, NonAdherent NonAdherent Contact Layer Contact Layer -Other Dressing AQUACEL -Primary Dressing Covered/Secured with Dry Gauze & Dry Gauze,Dry Roll Gauze, Gauze & Roll Secured with Gauze,Secured Tape with Tape -Aquacel Extra 1 #17 right lateral LE cluster -Ulcer Cleansing Rinsed/ Irrigated with Saline -Foul Odor after Cleansing No -Primary Dressing Applied Aquacel Extra, NonAdherent NonAdherent Contact Layer Contact Layer -Other Dressing AQUACEL EXTRA -Primary Dressing Covered/Secured with Dry Gauze & Dry Gauze,Dry Roll Gauze, Gauze & Roll Secured with Gauze,Secured Tape with Tape -Aquacel Extra 1 Left -Compression Wrap Kate Wrap -Other KATE Right -Compression Wrap Kate Wrap -Other KATE Treatment Response Procedure Procedure Tolerated Well Tolerated Well Pain Scale: 0-10 Numeric Is Patient Pain Free? Yes Yes WC - Visit Discharge Discharge Condition Stable Stable Ambulatory Status Wheelchair Wheelchair Transportation ECF trans Private Auto Medication Reconcilliation completed & No provided to patient/care provider Clinical Summary of Care Provided Yes Facility Type [facility] Orders Sent Yes Additional Wound Wound debrided: right lateral LE cluster Laterality: Right Type of Debridement: Selective debridement Anesthesia Used: 4% Lidocaine Solution Depth: Down to and including healthy tissue and in the subcutaneous layer Percentage of wound debrided: 100 Instrument Used: 5mm curette Tissue Removed: Yellow slough, devitalized tissue Severity: Fat Layer Exposed Amount of bleeding with debridement: Mild Bleeding Controlled with: Compression and gauze Patient tolerated procedure: Patient tolerated procedure well Assessment/Plan Assessment/Plan (1) Ulcer of right lower extremity with fat layer exposed: CODE(S): L97.912 - Non-pressure chronic ulcer of unspecified part of right lower leg with fat layer exposed (2) Ulcer of left lower extremity with fat layer exposed: CODE(S): L97.922 - Non-pressure chronic ulcer of unspecified part of left lower leg with fat layer exposed (3) Venous insufficiency: CODE(S): I87.2 - Venous insufficiency (chronic) (peripheral) (4) Edema: CODE(S): R60.9 - Edema, unspecified QUALIFIERS: Edema type: unspecified Qualified Code(s): R60.9 - Edema, unspecified (5) History of CVA (cerebrovascular accident): CODE(S): Z86.73 - Personal history of transient ischemic attack (TIA), and cerebral infarction without residual deficits (6) Venous ulcer of left lower extremity with varicose veins: CODE(S): I83.029 - Varicose veins of left lower extremity with ulcer of unspecified site (7) Venous ulcer of both lower extremities with varicose veins: CODE(S): I83.019 - Varicose veins of right lower extremity with ulcer of unspecified site; I83.029 - Varicose veins of left lower extremity with ulcer of unspecified site (8) Venous ulcers of both lower extremities: CODE(S): I87.2 - Venous insufficiency (chronic) (peripheral) (9) Lymphedema: CODE(S): I89.0 - Lymphedema, not elsewhere classified PLAN: Plan Debridement performed today in clinic as annotated above. At home wound-care instructions: Apply adaptic, Aquacel Extra, apply ABD and wrap with gauze and KATE bandages. Off-loading: The patient was instructed to avoid pressure and friction on the affected areas. Reposition every 2 hours at minimum. Avoid prolonged standing and/or dangling of legs. When seated, feet should be elevated at chest level. Frequent ambulation is encouraged. Diet: Patient encouraged to increase protein intake while taking caution to avoid high carbohydrate and/or sugar intake. Labs/cultures/imaging: Follow-up: Return in 1 week for wound care follow up. Return sooner or report to the emergency room should symptoms worsen, or new symptoms arise. Note: Dragon speech recognition pharmacy associate software was used to create portions of this document. Sound-alike and misspelled words, as well as other pharmacy associate errors may be contained in the documentation.
[2022-12-24 10:59] VITALS: BP 107/58; PULSE 74; RESP 18; TEMP 36.1
--- NOTE | 2022-12-24 14:05 | PN.PCM_ITS ---
History of Present Illness Date of Service: 12/24/22 Chief Complaint: venous ulcers of bilateral lower extremities History of Wound: Mauricio is a 67 yo gentleman who is here today for evaluation of ulcers to to his bilateral lower legs. He has been treated multiple times in the past at the wound healing center for similar ulcers. The left LE ulcer started after he developed increased swelling and blisters of left leg in October and the right leg started sometime at the end of October. He was seen at PCP's office a culture was taken and it was resistant to several antibiotics. He was treated initially with Levaquin but had myalgias and then was treated with doxycycline which he finished 2 days ago. He denies improvement and is having swelling to his left calf and thigh. He has been having swelling to both lower extremities for many years and it has worsened over the last few months. He has not been compliant with compression. He has had increased pain especially in the left leg. He has clear yellow drainage and redness without odor or warmth. He is anti- coagulated on coumadin. He has been washing with Dial soap and witch ifrah. He had been using Collagen at times and using Calcium Alginate and covering with ABD pads during October. He was treated with 3M compression and Aquacel Ag. He was referred to the wound center for ongoing treatment. His ulcers have moderate to heavy drainage. He was recently hospitalized for cellulitis and edema for the last 10 days. Discharged on 12/09/22 and is currently in the Skilled [facility]. He returned to his assisted living apartment on Tuesday12/21/22. Subjective Subjective He was in the hospital from 11/30/22 until 12/09/22 for treatment of cellulitis and edema. He underwent treatment with Vancomycin and IV lasix and compression. He tolerated treatment this week with adaptic, Aquacel and gauze and MARCIO bandages with improvement in size of ulcers. Objective Data Objective Data Vital Signs: Vital Signs Temp Pulse Resp BP O2 Del Method 97 F L 74 18 107/58 L Room Air 12/24/22 10:59 12/24/22 10:59 12/24/22 10:59 12/24/22 10:59 12/17/22 09:35 Oxygen Delivery Method Room Air Physical Exam Const alert, oriented x3 and no apparent distress General Appearance: cooperative and comfortable HEENT normocephalic and head/scalp atraumatic Lymph Lymphatic: lymphedema moderate Resp normal respiratory effort Effort and Inspection: able to speak in complete sentences Cardio regular rate and regular rhythm Extremity General Extremity: edema bilateral lower extremity Details: severe Skin Wounds: wounds noted Wound Narrative: as in clinical panel Psych mental status grossly normal, thought process normal, cooperative and affect normal Debridement Note Debridement Note Wound debrided: Left lateral LE cluster Laterality: Left Type of Debridement: Excisional debridement Anesthesia Used: 4% Lidocaine Solution Depth: Down to and including healthy tissue and in the subcutaneous layer Percentage of wound debrided: 100 Instrument Used: 5mm curette Tissue Removed: Yellow slough, devitalized tissue Severity: Fat Layer Exposed Amount of bleeding with debridement: Mild Bleeding Controlled with: Compression and gauze Patient tolerated procedure: Patient tolerated procedure well Post-Debridement Measurements and Additional Note: Post-Debridement Measurements/Treatment - Nurse 1 - General Ulcer Assessment Start: 12/10/22 09:38 Freq: Status: Active Protocol: ONDINA Activity Type Activity Date Activity User E-sign Co-sign Detail Recorded Client Recorded Date Recorded By Document 12/10/22 09:39 DL [id number] 12/10/22 09:51 DL Document 12/17/22 09:35 [facility] [id number] 12/17/22 09:48 BMF Document 12/24/22 10:59 RB [id number] 12/24/22 11:25 RB Edit Result 12/24/22 10:59 RB (1) [id number] 12/24/22 11:53 RB (1) Pulse Rate (60-100) => 74 Blood Pressure (90/60-120/80) => 107/58 L Blood Pressure Mean (mm Hg) => 74 12/10/22 12/17/22 12/24/22 09:39 09:35 10:59 - Today's Visit Information Type of service Follow-up Visit Follow-up Visit Follow-up Visit (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 (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 (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 ) ) ) Arrival Mode Wheelchair Wheelchair Ambulatory, Walker Transfer Assistance Manual Other Manual Transfer Assist (Other) x1 2 min assist Patient Identification Verified (Name & Yes Yes Yes ) Patient Requires Transmission-Based No No No Precautions Vital Signs Temperature (97.8 F-99.1 F) 97 F L 96.7 F L 97 F L Temperature Source Temporal Temporal Temporal Pulse Rate (60-100) 85 75 74 Pulse Location Monitor Monitor Monitor Respiratory Rate (12-18) 22 H 16 18 Respiratory rate source Observation Observation Oxygen Delivery Method Room Air Blood Pressure (90/60-120/80) 117/79 149/87 H 107/58 L Blood Pressure Mean (mm Hg) 91 107 74 Source Monitor Monitor Monitor Position Sitting Sitting Blood Pressure Location Right Forearm Left Arm History Since Last Visit- (Skip if this is Patient's initial visit) Have you changed medications since your No No No last visit? Any new allergies or adverse reactions No No No Had a fall/change in ADL's that may No No No increase risk of falls Signs or symptoms of abuse and/or No No No neglect since last visit Have you been in the hospital since your No No last visit? Has dressing in place as prescribed Yes Yes Yes Has compression in place as prescribed Yes Yes Yes Has offloadiing in place as prescribed N/A N/A No Experienced any changes in pain level or No No management Left Footwear Slipper Regular Shoe Right Footwear Slipper Regular Shoe Pain Scale: 0-10 Numeric Is Patient Pain Free? Yes Yes No bilat LE -Description Aching -Intensity 6 -Duration (hours) Acute -Pain Behavior Guarding -Pain Aggravating Factors Exercise/ Activity -Alleviating Factors/Interventions Medication WC - Nurse 1 - General Ulcer Measurement Start: 12/10/22 09:38 Freq: Status: Active Protocol: Activity Type Activity Date Activity User E-sign Co-sign Detail Recorded Client Recorded Date Recorded By Document 12/10/22 09:39 DL [id number] 12/10/22 09:51 DL Document 12/17/22 09:35 [facility] [id number] 12/17/22 09:48 BMF Document 12/24/22 10:59 RB [id number] 12/24/22 11:25 RB 12/10/22 12/17/22 12/24/22 09:39 09:35 10:59 Wound Center Nurse 1 #17 right lateral LE cluster -Combined with other wound No No -Current Size (cm) - Length 3 3.8 0.1 -Current Size (cm) - Width 5.1 5 0.1 -Current Size (cm) - Depth 0.1 0.1 0.1 -Total Square Cm 15.3 19.0 0.01 -Photo Taken No No Yes -Epithelialization Small 1-33% -Tunneling No No -Undermining/Tunneling No No -Circular Undermining No No -Exudate Amt Medium Small Medium -Exudate Type Serosanguineous Serosanguineous Serosanguineous -Wound Margin Indistinct, Non Flat & Intact Distinct, -Visible Outline Attached -Granulation Amt Large (67-100%) Medium (34-66%) Medium (34-66%) -Granulation Quality Red Red [place] -Slough/Fibrin Yes Yes -Necrosis Amt None Present (0 Medium (34-66%) Medium (34-66%) %) -Necrotic Tissue Type Adherent Slough Adherent Slough -Structure Exposed N/A N/A -Texture (Marie-wound Skin Appearance) Localized Edema Assessed, Assessed ,Scarring Scarring -Moisture (Marie-wound Skin Appearance) Dry/Scaly Assessed,Dry/ Assessed Scaly -Color (Marie-wound Skin Appearance) Ecchymosis, Assessed, Hemosiderin Erythema, Hemosiderin Staining Hemosiderin Staining Staining -Temperature (Marie-wound Skin No Abnormality No Abnormality No Abnormality Appearance) (Pt Warm) (Pt Warm) (Pt Warm) -Tenderness on Palpation (Marie-wound No No No Skin Appearance) -Ulcer Cleansing Soap and Water Soap and Water Wound Cleanser -Foul Odor after Cleansing No No No -Anesthetic Used 5% Lidocaine 4% Lidocaine 5% Lidocaine Gel Solution Gel 16. LLE cluster -Current Size (cm) - Length 29.5 -Current Size (cm) - Width 16 -Current Size (cm) - Depth 0.1 -Total Square Cm 472.0 -Photo Taken No -Exudate Amt Medium -Exudate Type Serosanguineous -Wound Margin Indistinct, Non -Visible -Granulation Quality Red -Necrosis Amt Small (1-33%) -Necrotic Tissue Type Adherent Slough -Structure Exposed N/A -Texture (Marie-wound Skin Appearance) Localized Edema ,Scarring -Moisture (Marie-wound Skin Appearance) Dry/Scaly -Color (Marie-wound Skin Appearance) Ecchymosis, Erythema, Hemosiderin Staining -Temperature (Marie-wound Skin No Abnormality Appearance) (Pt Warm) -Tenderness on Palpation (Marie-wound No Skin Appearance) -Foul Odor after Cleansing No -Anesthetic Used 4% Lidocaine Solution 15.RLE medial -Combined with other wound No -Current Size (cm) - Length 5 0.1 -Current Size (cm) - Width 6 0.1 -Current Size (cm) - Depth 0.1 0.1 -Total Square Cm 30 0.01 -Photo Taken No -Epithelialization Large 67-100% -Tunneling No -Undermining/Tunneling No -Circular Undermining No -Exudate Amt Medium None Present -Exudate Type Serosanguineous -Wound Margin Indistinct, Non -Visible -Granulation Amt Medium (34-66%) -Granulation Quality Red -Necrosis Amt Medium (34-66%) -Necrotic Tissue Type Adherent Slough -Structure Exposed N/A -Texture (Marie-wound Skin Appearance) Localized Edema Assessed ,Scarring -Moisture (Marie-wound Skin Appearance) Dry/Scaly Assessed,Dry/ Scaly -Color (Marie-wound Skin Appearance) Ecchymosis, Assessed, Erythema, Hemosiderin Hemosiderin Staining Staining -Temperature (Marie-wound Skin No Abnormality Appearance) (Pt Warm) -Tenderness on Palpation (Marie-wound No No Skin Appearance) -Ulcer Cleansing Soap and Water Soap and Water -Foul Odor after Cleansing No No -Anesthetic Used 4% Lidocaine 4% Lidocaine Solution Solution #19 Left Lateral LE cluster -Combined with other wound No No -Current Size (cm) - Length 17 1.5 -Current Size (cm) - Width 12.5 1.4 -Current Size (cm) - Depth 0.1 0.1 -Total Square Cm 212.5 2.10 -Photo Taken No Yes -Epithelialization Small 1-33% -Tunneling No No -Undermining/Tunneling No No -Circular Undermining No No -Exudate Amt Medium Large -Exudate Type Serosanguineous Serosanguineous -Wound Margin Distinct, Distinct, Outline Outline Attached Attached -Granulation Amt Medium (34-66%) Medium (34-66%) -Granulation Quality Red [place] -Slough/Fibrin Yes Yes -Necrosis Amt Medium (34-66%) Medium (34-66%) -Necrotic Tissue Type Adherent Slough Adherent Slough -Structure Exposed N/A -Texture (Marie-wound Skin Appearance) Assessed, Assessed Scarring -Moisture (Marie-wound Skin Appearance) Assessed,Dry/ Assessed Scaly -Color (Marie-wound Skin Appearance) Assessed, Hemosiderin Hemosiderin Staining Staining -Temperature (Marie-wound Skin No Abnormality No Abnormality Appearance) (Pt Warm) (Pt Warm) -Tenderness on Palpation (Marie-wound No No Skin Appearance) -Ulcer Cleansing Soap and Water Wound Cleanser -Foul Odor after Cleansing No No -Anesthetic Used 4% Lidocaine 5% Lidocaine Solution Gel #18 Left medial LE cluster -Combined with other wound No No -Current Size (cm) - Length 17 5.5 -Current Size (cm) - Width 16.8 6 -Current Size (cm) - Depth 0.1 0.1 -Total Square Cm 285.6 33.0 -Photo Taken No Yes -Epithelialization Small 1-33% -Tunneling No No -Undermining/Tunneling No No -Circular Undermining No No -Exudate Amt Medium Medium -Exudate Type Serosanguineous Serosanguineous -Wound Margin Distinct, Distinct, Outline Outline Attached Attached -Granulation Amt Large (67-100%) Medium (34-66%) -Granulation Quality Red [place] -Slough/Fibrin Yes Yes -Necrosis Amt Small (1-33%) Medium (34-66%) -Necrotic Tissue Type Adherent Slough Adherent Slough -Structure Exposed N/A -Texture (Marie-wound Skin Appearance) Assessed, Assessed Scarring -Moisture (Marie-wound Skin Appearance) Assessed,Dry/ Assessed Scaly -Color (Marie-wound Skin Appearance) Assessed, Hemosiderin Hemosiderin Staining Staining -Temperature (Marie-wound Skin No Abnormality No Abnormality Appearance) (Pt Warm) (Pt Warm) -Tenderness on Palpation (Marie-wound No No Skin Appearance) -Ulcer Cleansing Soap and Water Wound Cleanser -Foul Odor after Cleansing No No -Anesthetic Used 4% Lidocaine 5% Lidocaine Solution Gel Lower Limb Edema Present Yes Yes Right Calf (cm) 43.5 40 47.5 Right Ankle (cm) 27 27 28 Left Calf (cm) 43.5 43 46 Left Ankle (cm) 29 26.5 29 WC - Nurse 2 - General Ulcer CM Notes Start: 12/10/22 09:38 Freq: Status: Active Protocol: Activity Type Activity Date Activity User E-sign Co-sign Detail Recorded Client Recorded Date Recorded By Document 12/10/22 10:18 MW [id number] 12/10/22 11:06 MW Document 12/17/22 09:58 BMF [id number] 12/17/22 10:35 BMF Edit Result 12/17/22 09:58 BMF (1) [id number] 12/17/22 12:48 PL Document 12/24/22 11:41 MW [id number] 12/24/22 12:01 MW (1) #17 right lateral LE cluster - Debridement - Subq, 1st 20sq cm No => Yes - Debridement, SubQ, ea addt'l 20sq cm => 11 or part thereof 12/10/22 12/17/22 12/24/22 10:18 09:58 11:41 Wound Center Nurse 2 #17 right lateral LE cluster -Time 10:18 10:05 11:43 -Correct Patient Yes Yes Yes -Correct Side, Site, Position Yes Yes Yes -Correct Procedure Yes Yes Yes -Procedure Performed Yes Yes No -Type of Procedure Debridement Debridement -Clinical Debridement Subcutaneous Subcutaneous -Tissue Removed Subcutaneous Subcutaneous -Post Debridement (cm) - Length 2.5 0.5 -Post Debridement (cm) - Width 5.0 2.9 -Post Debridement (cm) - Depth 0.1 0.1 -Total Square (Post) (cm) 12.50 1.45 -Area of Debridement (cm) - Length 2.5 0.5 -Area of Debridement (cm) - Width 5.0 2.9 -Total Square (Area) (cm) 12.50 1.45 -Tunneling No No No -Undermining/Tunneling No No No -Circular Undermining No No No -Wound/Ulcer Outcome Not Healed Not Healed Healed- Epithelialized -Ulcer Cleansing Rinsed/ Rinsed/ Irrigated with Irrigated with Saline Saline -Foul Odor after Cleansing No No -Bioengineered Tissue No No -Bleeding Controlled with Pressure Pressure -Treatment Response Procedure Procedure Tolerated Well Tolerated Well -Offloading No -Assistive Device(s) Wheelchair -Debridement - Subq, 1st 20sq cm Yes Yes -Debridement, SubQ, ea addt'l 20sq cm 16 11 or part thereof 16. LLE cluster -Time 10:20 -Correct Patient Yes -Correct Side, Site, Position Yes -Correct Procedure Yes -Procedure Performed No -Tunneling No -Undermining/Tunneling No -Circular Undermining No -Wound/Ulcer Outcome Converted 15.RLE medial -Time 10:25 10:06 -Correct Patient Yes Yes -Correct Side, Site, Position Yes Yes -Correct Procedure Yes Yes -Procedure Performed Yes Yes -Type of Procedure Debridement Debridement -Clinical Debridement Subcutaneous Subcutaneous -Tissue Removed Subcutaneous Subcutaneous -Post Debridement (cm) - Length 1.0 0 -Post Debridement (cm) - Width 0.8 0 -Post Debridement (cm) - Depth 0.1 0 -Total Square (Post) (cm) 0.80 0 -Area of Debridement (cm) - Length 1.0 0 -Area of Debridement (cm) - Width 0.8 0 -Total Square (Area) (cm) 0.80 0 -Tunneling No No -Undermining/Tunneling No No -Circular Undermining No No -Wound/Ulcer Outcome Not Healed Healed- Epithelialized -Ulcer Cleansing Rinsed/ Rinsed/ Irrigated with Irrigated with Saline Saline -Foul Odor after Cleansing No No -Bioengineered Tissue No No -Bleeding Controlled with Pressure Pressure -Treatment Response Procedure Procedure Tolerated Well Tolerated Well -Offloading No -Assistive Device(s) Wheelchair -Debridement - Subq, 1st 20sq cm No No #19 Left Lateral LE cluster -Time 10:56 10:01 11:43 -Correct Patient Yes Yes Yes -Correct Side, Site, Position Yes Yes Yes -Correct Procedure Yes Yes Yes -Procedure Performed Yes Yes Yes -Type of Procedure Debridement Debridement Debridement -Clinical Debridement Subcutaneous Subcutaneous Subcutaneous -Tissue Removed Subcutaneous Subcutaneous Subcutaneous -Post Debridement (cm) - Length 10.5 10 1.7 -Post Debridement (cm) - Width 8.5 7 1.4 -Post Debridement (cm) - Depth 0.1 0.1 0.1 -Total Square (Post) (cm) 89.25 70 2.38 -Area of Debridement (cm) - Length 10.5 10 1.7 -Area of Debridement (cm) - Width 8.5 7 1.4 -Total Square (Area) (cm) 89.25 70 2.38 -Tunneling No No No -Undermining/Tunneling No No No -Circular Undermining No No No -Wound/Ulcer Outcome Not Healed Not Healed Not Healed -Ulcer Cleansing Rinsed/ Rinsed/ Rinsed/ Irrigated with Irrigated with Irrigated with Saline Saline Saline -Foul Odor after Cleansing No No No -Bioengineered Tissue No No No -Bleeding Controlled with Pressure Pressure -Treatment Response Procedure Procedure Procedure Tolerated Well Tolerated Well Tolerated Well -Offloading No No -Assistive Device(s) Wheelchair -Debridement - Subq, 1st 20sq cm No No Yes -Debridement, SubQ, ea addt'l 20sq cm 3 or part thereof #18 Left medial LE cluster -Time 10:55 10:02 11:43 -Correct Patient Yes Yes Yes -Correct Side, Site, Position Yes Yes Yes -Correct Procedure Yes Yes Yes -Procedure Performed Yes Yes Yes -Type of Procedure Debridement Debridement Debridement -Clinical Debridement Subcutaneous Subcutaneous Subcutaneous -Tissue Removed Subcutaneous Subcutaneous Subcutaneous -Post Debridement (cm) - Length 17.0 14 7.0 -Post Debridement (cm) - Width 13.0 11 8.5 -Post Debridement (cm) - Depth 0.1 0.1 0.1 -Total Square (Post) (cm) 221.00 154 59.50 -Area of Debridement (cm) - Length 17.0 14 7.0 -Area of Debridement (cm) - Width 13.0 11 8.5 -Total Square (Area) (cm) 221.00 154 59.50 -Tunneling No No No -Undermining/Tunneling No No No -Circular Undermining No No No -Wound/Ulcer Outcome Not Healed Not Healed Not Healed -Ulcer Cleansing Rinsed/ Rinsed/ Rinsed/ Irrigated with Irrigated with Irrigated with Saline Saline Saline -Foul Odor after Cleansing No No No -Bioengineered Tissue No No No -Bleeding Controlled with Pressure Pressure -Treatment Response Procedure Procedure Tolerated Well Tolerated Well -Offloading No No -Assistive Device(s) Wheelchair -Debridement - Subq, 1st 20sq cm No No No Pain Scale: 0-10 Numeric Is Patient Pain Free? Yes Yes Yes WC - Nurse 3 - General Ulcer D/C NN Start: 12/10/22 09:38 Freq: Status: Active Protocol: Activity Type Activity Date Activity User E-sign Co-sign Detail Recorded Client Recorded Date Recorded By Document 12/10/22 11:09 DL [id number] 12/10/22 11:12 DL Document 12/17/22 11:30 RB [id number] 12/17/22 11:34 RB Document 12/24/22 12:22 RB [id number] 12/24/22 12:24 RB 12/10/22 12/17/22 12/24/22 11:09 11:30 12:22 Wound Care Center Nurse 3 #17 right lateral LE cluster -Ulcer Cleansing Rinsed/ Irrigated with Saline -Foul Odor after Cleansing No -Primary Dressing Applied Aquacel Extra, NonAdherent NonAdherent Contact Layer Contact Layer -Other Dressing AQUACEL EXTRA -Primary Dressing Covered/Secured with Dry Gauze & Dry Gauze,Dry Roll Gauze, Gauze & Roll Secured with Gauze,Secured Tape with Tape -Aquacel Extra 1 15.RLE medial -Ulcer Cleansing Rinsed/ Rinsed/ Irrigated with Irrigated with Saline Saline -Foul Odor after Cleansing No -Primary Dressing Applied NonAdherent NonAdherent Contact Layer Contact Layer -Other Dressing aquacel EX AQUACEL EXTRA -Primary Dressing Covered/Secured with Dry Gauze & Dry Gauze,Dry Roll Gauze, Gauze & Roll Secured with Gauze,Secured Tape with Tape #19 Left Lateral LE cluster -Ulcer Cleansing Rinsed/ Rinsed/ Rinsed/ Irrigated with Irrigated with Irrigated with Saline Saline Saline -Foul Odor after Cleansing No -Primary Dressing Applied Aquacel Extra, Aquacel Extra, Fibracol Plus NonAdherent NonAdherent 4x4,NonAdherent Contact Layer Contact Layer Contact Layer -Other Dressing DOUBLE LAYER ABD ADAPTIC/ AQUACEL/ ABD PAD -Primary Dressing Covered/Secured with Dry Gauze & Dry Gauze,Dry Dry Gauze,Dry Roll Gauze, Gauze & Roll Gauze & Roll Secured with Gauze,Secured Gauze,Secured Tape with Tape with Tape -Aquacel Extra 1 2 -Fibracol Plus 4x4 1 #18 Left medial LE cluster -Ulcer Cleansing Rinsed/ Rinsed/ Irrigated with Irrigated with Saline Saline -Foul Odor after Cleansing No -Primary Dressing Applied Aquacel Extra, NonAdherent Fibracol Plus NonAdherent Contact Layer 4x4,NonAdherent Contact Layer Contact Layer -Other Dressing AQUACEL ABD -Primary Dressing Covered/Secured with Dry Gauze & Dry Gauze,Dry Dry Gauze & Roll Gauze, Gauze & Roll Roll Gauze, Secured with Gauze,Secured Secured with Tape with Tape Tape -Aquacel Extra 1 -Fibracol Plus 4x4 1 Left -Compression Wrap Marcio Wrap -Other MARCIO cotton liner marcio Right -Compression Wrap Marcio Wrap -Other MARCIO cotton liner then marcio Treatment Response Procedure Procedure Procedure Tolerated Well Tolerated Well Tolerated Well Pain Scale: 0-10 Numeric Is Patient Pain Free? Yes Yes Yes WC - Visit Discharge Discharge Condition Stable Stable Stable Ambulatory Status Wheelchair Wheelchair Ambulatory, Walker Transportation ECF trans Private Auto Private Auto Medication Reconcilliation completed & No No provided to patient/care provider Clinical Summary of Care Provided Yes Yes Facility Type [facility] Orders Sent Yes Additional Wound Wound debrided: Right lateral LE Laterality: Right Operative Diagnosis: no debridement completed - ulcer healed Additional Wound Wound debrided: left medial LE cluster Laterality: Left Type of Debridement: Excisional debridement Anesthesia Used: 4% Lidocaine Solution and 5% Lidocaine Gel Depth: Down to and including healthy tissue and in the subcutaneous layer Percentage of wound debrided: 100 Instrument Used: 5mm curette Tissue Removed: yellow slough, devitalized tissue Severity: Fat Layer Exposed Amount of bleeding with debridement: Mild Bleeding Controlled with: Compression and gauze Patient tolerated procedure: Patient tolerated procedure well Assessment/Plan Assessment/Plan (1) Ulcer of right lower extremity with fat layer exposed: CODE(S): L97.912 - Non-pressure chronic ulcer of unspecified part of right lower leg with fat layer exposed (2) Ulcer of left lower extremity with fat layer exposed: CODE(S): L97.922 - Non-pressure chronic ulcer of unspecified part of left lower leg with fat layer exposed (3) Venous insufficiency: CODE(S): I87.2 - Venous insufficiency (chronic) (peripheral) (4) Edema: CODE(S): R60.9 - Edema, unspecified QUALIFIERS: Edema type: unspecified Qualified Code(s): R60.9 - Edema, unspecified (5) History of CVA (cerebrovascular accident): CODE(S): Z86.73 - Personal history of transient ischemic attack (TIA), and cerebral infarction without residual deficits (6) Venous ulcer of left lower extremity with varicose veins: CODE(S): I83.029 - Varicose veins of left lower extremity with ulcer of unspecified site (7) Venous ulcer of both lower extremities with varicose veins: CODE(S): I83.019 - Varicose veins of right lower extremity with ulcer of unspecified site; I83.029 - Varicose veins of left lower extremity with ulcer of unspecified site (8) Venous ulcers of both lower extremities: CODE(S): I87.2 - Venous insufficiency (chronic) (peripheral) (9) Lymphedema: CODE(S): I89.0 - Lymphedema, not elsewhere classified PLAN: Plan Debridement performed today in clinic as annotated above. At home wound-care instructions: Apply Fibracol and adaptic to ulcers, cotton stockinette wrap with MARCIO bandages. Off-loading: The patient was instructed to avoid pressure and friction on the affected areas. Reposition every 2 hours at minimum. Avoid prolonged standing and/or dangling of legs. When seated, feet should be elevated at chest level. Frequent ambulation is encouraged. Encouraged lymphedema pump use. Diet: Patient encouraged to increase protein intake while taking caution to avoid high carbohydrate and/or sugar intake. Labs/cultures/imaging: Follow-up: Return in 1 week for wound care follow up. Return sooner or report to the emergency room should symptoms worsen, or new symptoms arise. Note: [employer] speech recognition senior air director software was used to create portions of this document. Sound-alike and misspelled words, as well as other senior air director errors may be contained in the documentation.
[2023-01-07 10:03] VITALS: BP 122/62; PULSE 72; RESP 18; TEMP 36.1
--- NOTE | 2023-01-07 14:07 | PN.PCM_ITS ---
History of Present Illness Date of Service: 01/07/23 Chief Complaint: venous ulcers of bilateral lower extremities History of Wound: Mauricio is a 67 yo gentleman who is here today for evaluation of ulcers to to his bilateral lower legs. He has been treated multiple times in the past at the wound healing center for similar ulcers. The left LE ulcer started after he developed increased swelling and blisters of left leg in October and the right leg started sometime at the end of October. He was seen at PCP's office a culture was taken and it was resistant to several antibiotics. He was treated initially with Levaquin but had myalgias and then was treated with doxycycline which he finished 2 days ago. He denies improvement and is having swelling to his left calf and thigh. He has been having swelling to both lower extremities for many years and it has worsened over the last few months. He has not been compliant with compression. He has had increased pain especially in the left leg. He has clear yellow drainage and redness without odor or warmth. He is anti- coagulated on coumadin. He has been washing with Dial soap and witch ifrah. He had been using Collagen at times and using Calcium Alginate and covering with ABD pads during October. He was treated with 3M compression and Aquacel Ag. He was referred to the wound center for ongoing treatment. His ulcers have moderate to heavy drainage. He was recently hospitalized for cellulitis and edema for the last 10 days. Discharged on 12/09/22 and is currently in the Skilled [facility] of [facility]. He returned to his assisted living apartment on Tuesday12/21/22. Subjective Subjective He was in the hospital from 11/30/22 until 12/09/22 for treatment of cellulitis and edema. He underwent treatment with Vancomycin and IV lasix and compression. He tolerated treatment this week with adaptic, Fibracol and gauze and MARCIO bandages but was not seen last week due to transportation. His ulcers and edema are worse this week. Objective Data Objective Data Vital Signs: Vital Signs Temp Pulse Resp BP O2 Del Method 97 F L 72 18 122/62 H Room Air 01/07/23 10:01/07/23 10:01/07/23 10:01/07/23 10:12/17/22 09:35 Oxygen Delivery Method Room Air Physical Exam Const alert, oriented x3 and no apparent distress General Appearance: cooperative and comfortable HEENT normocephalic and head/scalp atraumatic Lymph Lymphatic: lymphedema moderate Resp normal respiratory effort Effort and Inspection: able to speak in complete sentences Cardio regular rate and regular rhythm Extremity General Extremity: edema bilateral lower extremity Details: severe Skin Wounds: wounds noted Wound Narrative: as in clinical panel Psych mental status grossly normal, thought process normal, cooperative and affect normal Debridement Note Debridement Note Wound debrided: Left lateral LE cluster Laterality: Left Type of Debridement: Excisional debridement Anesthesia Used: 4% Lidocaine Solution Depth: Down to and including healthy tissue and in the subcutaneous layer Percentage of wound debrided: 100 Instrument Used: 5mm curette Tissue Removed: Yellow slough, devitalized tissue Severity: Fat Layer Exposed Amount of bleeding with debridement: Mild Bleeding Controlled with: Compression and gauze Patient tolerated procedure: Patient tolerated procedure well Post-Debridement Measurements and Additional Note: Post-Debridement Measurements/Treatment - Nurse 1 - General Ulcer Assessment Start: 12/10/22 09:38 Freq: Status: Active Protocol: ONDINA Activity Type Activity Date Activity User E-sign Co-sign Detail Recorded Client Recorded Date Recorded By Document 12/10/22 09:39 DL [id number] 12/10/22 09:51 DL Document 12/17/22 09:35 [facility] [id number] 12/17/22 09:48 BMF Document 12/24/22 10:59 RB [id number] 12/24/22 11:25 RB Edit Result 12/24/22 10:59 RB (1) [id number] 12/24/22 11:53 RB Document 01/07/23 10:03 RB [id number] 01/07/23 10:14 RB (1) Pulse Rate (60-100) => 74 Blood Pressure (90/60-120/80) => 107/58 L Blood Pressure Mean (mm Hg) => 74 12/10/22 12/17/22 12/24/22 09:39 09:35 10:59 - Today's Visit Information Type of service Follow-up Visit Follow-up Visit Follow-up Visit (Physician/CLIENT SERVICES DIRECTOR (Physician/CLIENT SERVICES DIRECTOR (Physician/CLIENT SERVICES DIRECTOR ) ) ) Arrival Mode Wheelchair Wheelchair Ambulatory, Walker Transfer Assistance Manual Other Manual Transfer Assist (Other) x1 2 min assist Patient Identification Verified (Name & Yes Yes Yes ) Patient Requires Transmission-Based No No No Precautions Vital Signs Temperature (97.8 F-99.1 F) 97 F L 96.7 F L 97 F L Temperature Source Temporal Temporal Temporal Pulse Rate (60-100) 85 75 74 Pulse Location Monitor Monitor Monitor Respiratory Rate (12-18) 22 H 16 18 Respiratory rate source Observation Observation Oxygen Delivery Method Room Air Blood Pressure (90/60-120/80) 117/79 149/87 H 107/58 L Blood Pressure Mean (mm Hg) 91 107 74 Source Monitor Monitor Monitor Position Sitting Sitting Blood Pressure Location Right Forearm Left Arm History Since Last Visit- (Skip if this is Patient's initial visit) Have you changed medications since your No No No last visit? Any new allergies or adverse reactions No No No Had a fall/change in ADL's that may No No No increase risk of falls Signs or symptoms of abuse and/or No No No neglect since last visit Have you been in the hospital since your No No last visit? Has dressing in place as prescribed Yes Yes Yes Has compression in place as prescribed Yes Yes Yes Has offloadiing in place as prescribed N/A N/A No Experienced any changes in pain level or No No management Left Footwear Slipper Regular Shoe Right Footwear Slipper Regular Shoe Pain Scale: 0-10 Numeric Is Patient Pain Free? Yes Yes No bilat LE -Description Aching -Intensity 6 -Duration (hours) Acute -Pain Behavior Guarding -Pain Aggravating Factors Exercise/ Activity -Alleviating Factors/Interventions Medication 01/07/23 10:03 - Today's Visit Information Type of service Follow-up Visit (Physician/CLIENT SERVICES DIRECTOR ) Arrival Mode Ambulatory, Walker Transfer Assistance None Transfer Assist (Other) Patient Identification Verified (Name & Yes ) Patient Requires Transmission-Based No Precautions Vital Signs Temperature (97.8 F-99.1 F) 97 F L Temperature Source Temporal Pulse Rate (60-100) 72 Pulse Location Monitor Respiratory Rate (12-18) 18 Respiratory rate source Observation Oxygen Delivery Method Blood Pressure (90/60-120/80) 122/62 H Blood Pressure Mean (mm Hg) 82 Source Monitor Position Semi-Fowlers Blood Pressure Location Left Arm History Since Last Visit- (Skip if this is Patient's initial visit) Have you changed medications since your No last visit? Any new allergies or adverse reactions No Had a fall/change in ADL's that may No increase risk of falls Signs or symptoms of abuse and/or No neglect since last visit Have you been in the hospital since your No last visit? Has dressing in place as prescribed Yes Has compression in place as prescribed Yes Has offloadiing in place as prescribed No Experienced any changes in pain level or No management Left Footwear Right Footwear Pain Scale: 0-10 Numeric Is Patient Pain Free? Yes lily LE -Description -Intensity -Duration (hours) -Pain Behavior -Pain Aggravating Factors -Alleviating Factors/Interventions WC - Nurse 1 - General Ulcer Measurement Start: 12/10/22 09:38 Freq: Status: Active Protocol: Activity Type Activity Date Activity User E-sign Co-sign Detail Recorded Client Recorded Date Recorded By Document 12/10/22 09:39 DL [id number] 12/10/22 09:51 DL Document 12/17/22 09:35 [facility] [id number] 12/17/22 09:48 BMF Document 12/24/22 10:59 RB [id number] 12/24/22 11:25 RB Document 01/07/23 10:03 RB [id number] 01/07/23 10:14 RB 12/10/22 12/17/22 12/24/22 09:39 09:35 10:59 Wound Center Nurse 1 #17 right lateral LE cluster -Combined with other wound No No -Current Size (cm) - Length 3 3.8 0.1 -Current Size (cm) - Width 5.1 5 0.1 -Current Size (cm) - Depth 0.1 0.1 0.1 -Total Square Cm 15.3 19.0 0.01 -Photo Taken No No Yes -Epithelialization Small 1-33% -Tunneling No No -Undermining/Tunneling No No -Circular Undermining No No -Exudate Amt Medium Small Medium -Exudate Type Serosanguineous Serosanguineous Serosanguineous -Wound Margin Indistinct, Non Flat & Intact Distinct, -Visible Outline Attached -Granulation Amt Large (67-100%) Medium (34-66%) Medium (34-66%) -Granulation Quality Red Red Josephine -Slough/Fibrin Yes Yes -Necrosis Amt None Present (0 Medium (34-66%) Medium (34-66%) %) -Necrotic Tissue Type Adherent Slough Adherent Slough -Structure Exposed N/A N/A -Texture (Marie-wound Skin Appearance) Localized Edema Assessed, Assessed ,Scarring Scarring -Moisture (Marie-wound Skin Appearance) Dry/Scaly Assessed,Dry/ Assessed Scaly -Color (Marie-wound Skin Appearance) Ecchymosis, Assessed, Hemosiderin Erythema, Hemosiderin Staining Hemosiderin Staining Staining -Temperature (Marie-wound Skin No Abnormality No Abnormality No Abnormality Appearance) (Pt Warm) (Pt Warm) (Pt Warm) -Tenderness on Palpation (Marie-wound No No No Skin Appearance) -Ulcer Cleansing Soap and Water Soap and Water Wound Cleanser -Foul Odor after Cleansing No No No -Anesthetic Used 5% Lidocaine 4% Lidocaine 5% Lidocaine Gel Solution Gel 16. LLE cluster -Current Size (cm) - Length 29.5 -Current Size (cm) - Width 16 -Current Size (cm) - Depth 0.1 -Total Square Cm 472.0 -Photo Taken No -Exudate Amt Medium -Exudate Type Serosanguineous -Wound Margin Indistinct, Non -Visible -Granulation Quality Red -Necrosis Amt Small (1-33%) -Necrotic Tissue Type Adherent Slough -Structure Exposed N/A -Texture (Marie-wound Skin Appearance) Localized Edema ,Scarring -Moisture (Marie-wound Skin Appearance) Dry/Scaly -Color (Marie-wound Skin Appearance) Ecchymosis, Erythema, Hemosiderin Staining -Temperature (Marie-wound Skin No Abnormality Appearance) (Pt Warm) -Tenderness on Palpation (Marie-wound No Skin Appearance) -Foul Odor after Cleansing No -Anesthetic Used 4% Lidocaine Solution 15.RLE medial -Combined with other wound No -Current Size (cm) - Length 5 0.1 -Current Size (cm) - Width 6 0.1 -Current Size (cm) - Depth 0.1 0.1 -Total Square Cm 30 0.01 -Photo Taken No -Epithelialization Large 67-100% -Tunneling No -Undermining/Tunneling No -Circular Undermining No -Exudate Amt Medium None Present -Exudate Type Serosanguineous -Wound Margin Indistinct, Non -Visible -Granulation Amt Medium (34-66%) -Granulation Quality Red -Necrosis Amt Medium (34-66%) -Necrotic Tissue Type Adherent Slough -Structure Exposed N/A -Texture (Marie-wound Skin Appearance) Localized Edema Assessed ,Scarring -Moisture (Marie-wound Skin Appearance) Dry/Scaly Assessed,Dry/ Scaly -Color (Marie-wound Skin Appearance) Ecchymosis, Assessed, Erythema, Hemosiderin Hemosiderin Staining Staining -Temperature (Marie-wound Skin No Abnormality Appearance) (Pt Warm) -Tenderness on Palpation (Marie-wound No No Skin Appearance) -Ulcer Cleansing Soap and Water Soap and Water -Foul Odor after Cleansing No No -Anesthetic Used 4% Lidocaine 4% Lidocaine Solution Solution #19 Left Lateral LE cluster -Combined with other wound No No -Current Size (cm) - Length 17 1.5 -Current Size (cm) - Width 12.5 1.4 -Current Size (cm) - Depth 0.1 0.1 -Total Square Cm 212.5 2.10 -Photo Taken No Yes -Epithelialization Small 1-33% -Tunneling No No -Undermining/Tunneling No No -Circular Undermining No No -Exudate Amt Medium Large -Exudate Type Serosanguineous Serosanguineous -Wound Margin Distinct, Distinct, Outline Outline Attached Attached -Granulation Amt Medium (34-66%) Medium (34-66%) -Granulation Quality Red Josephine -Slough/Fibrin Yes Yes -Necrosis Amt Medium (34-66%) Medium (34-66%) -Necrotic Tissue Type Adherent Slough Adherent Slough -Structure Exposed N/A -Texture (Marie-wound Skin Appearance) Assessed, Assessed Scarring -Moisture (Marie-wound Skin Appearance) Assessed,Dry/ Assessed Scaly -Color (Marie-wound Skin Appearance) Assessed, Hemosiderin Hemosiderin Staining Staining -Temperature (Marie-wound Skin No Abnormality No Abnormality Appearance) (Pt Warm) (Pt Warm) -Tenderness on Palpation (Marie-wound No No Skin Appearance) -Ulcer Cleansing Soap and Water Wound Cleanser -Foul Odor after Cleansing No No -Anesthetic Used 4% Lidocaine 5% Lidocaine Solution Gel #18 Left medial LE cluster -Combined with other wound No No -Current Size (cm) - Length 17 5.5 -Current Size (cm) - Width 16.8 6 -Current Size (cm) - Depth 0.1 0.1 -Total Square Cm 285.6 33.0 -Photo Taken No Yes -Epithelialization Small 1-33% -Tunneling No No -Undermining/Tunneling No No -Circular Undermining No No -Exudate Amt Medium Medium -Exudate Type Serosanguineous Serosanguineous -Wound Margin Distinct, Distinct, Outline Outline Attached Attached -Granulation Amt Large (67-100%) Medium (34-66%) -Granulation Quality Red Josephine -Slough/Fibrin Yes Yes -Necrosis Amt Small (1-33%) Medium (34-66%) -Necrotic Tissue Type Adherent Slough Adherent Slough -Structure Exposed N/A -Texture (Marie-wound Skin Appearance) Assessed, Assessed Scarring -Moisture (Marie-wound Skin Appearance) Assessed,Dry/ Assessed Scaly -Color (Marie-wound Skin Appearance) Assessed, Hemosiderin Hemosiderin Staining Staining -Temperature (Marie-wound Skin No Abnormality No Abnormality Appearance) (Pt Warm) (Pt Warm) -Tenderness on Palpation (Marie-wound No No Skin Appearance) -Ulcer Cleansing Soap and Water Wound Cleanser -Foul Odor after Cleansing No No -Anesthetic Used 4% Lidocaine 5% Lidocaine Solution Gel Lower Limb Edema Present Yes Yes Right Calf (cm) 43.5 40 47.5 Right Ankle (cm) 27 27 28 Left Calf (cm) 43.5 43 46 Left Ankle (cm) 29 26.5 29 01/07/23 10:03 Wound Center Nurse 1 #17 right lateral LE cluster -Combined with other wound -Current Size (cm) - Length -Current Size (cm) - Width -Current Size (cm) - Depth -Total Square Cm -Photo Taken -Epithelialization -Tunneling -Undermining/Tunneling -Circular Undermining -Exudate Amt -Exudate Type -Wound Margin -Granulation Amt -Granulation Quality -Slough/Fibrin -Necrosis Amt -Necrotic Tissue Type -Structure Exposed -Texture (Marie-wound Skin Appearance) -Moisture (Marie-wound Skin Appearance) -Color (Marie-wound Skin Appearance) -Temperature (Marie-wound Skin Appearance) -Tenderness on Palpation (Marie-wound Skin Appearance) -Ulcer Cleansing -Foul Odor after Cleansing -Anesthetic Used 16. LLE cluster -Current Size (cm) - Length -Current Size (cm) - Width -Current Size (cm) - Depth -Total Square Cm -Photo Taken -Exudate Amt -Exudate Type -Wound Margin -Granulation Quality -Necrosis Amt -Necrotic Tissue Type -Structure Exposed -Texture (Marie-wound Skin Appearance) -Moisture (Marie-wound Skin Appearance) -Color (Marie-wound Skin Appearance) -Temperature (Marie-wound Skin Appearance) -Tenderness on Palpation (Marie-wound Skin Appearance) -Foul Odor after Cleansing -Anesthetic Used 15.RLE medial -Combined with other wound -Current Size (cm) - Length -Current Size (cm) - Width -Current Size (cm) - Depth -Total Square Cm -Photo Taken -Epithelialization -Tunneling -Undermining/Tunneling -Circular Undermining -Exudate Amt -Exudate Type -Wound Margin -Granulation Amt -Granulation Quality -Necrosis Amt -Necrotic Tissue Type -Structure Exposed -Texture (Marie-wound Skin Appearance) -Moisture (Marie-wound Skin Appearance) -Color (Marie-wound Skin Appearance) -Temperature (Marie-wound Skin Appearance) -Tenderness on Palpation (Marie-wound Skin Appearance) -Ulcer Cleansing -Foul Odor after Cleansing -Anesthetic Used #19 Left Lateral LE cluster -Combined with other wound No -Current Size (cm) - Length 1.8 -Current Size (cm) - Width 1.2 -Current Size (cm) - Depth 0.1 -Total Square Cm 2.16 -Photo Taken Yes -Epithelialization -Tunneling No -Undermining/Tunneling No -Circular Undermining No -Exudate Amt Large -Exudate Type Serosanguineous -Wound Margin Distinct, Outline Attached -Granulation Amt Medium (34-66%) -Granulation Quality Josephine -Slough/Fibrin Yes -Necrosis Amt Medium (34-66%) -Necrotic Tissue Type Adherent Slough -Structure Exposed N/A -Texture (Marie-wound Skin Appearance) Assessed -Moisture (Marie-wound Skin Appearance) Assessed -Color (Marie-wound Skin Appearance) Hemosiderin Staining -Temperature (Marie-wound Skin No Abnormality Appearance) (Pt Warm) -Tenderness on Palpation (Marie-wound No Skin Appearance) -Ulcer Cleansing Wound Cleanser -Foul Odor after Cleansing No -Anesthetic Used 5% Lidocaine Gel #18 Left medial LE cluster -Combined with other wound No -Current Size (cm) - Length 5 -Current Size (cm) - Width 8 -Current Size (cm) - Depth 0.1 -Total Square Cm 40 -Photo Taken Yes -Epithelialization -Tunneling No -Undermining/Tunneling No -Circular Undermining No -Exudate Amt Large -Exudate Type Serosanguineous -Wound Margin Distinct, Outline Attached -Granulation Amt Medium (34-66%) -Granulation Quality Josephine -Slough/Fibrin Yes -Necrosis Amt Medium (34-66%) -Necrotic Tissue Type Adherent Slough -Structure Exposed N/A -Texture (Marie-wound Skin Appearance) Assessed -Moisture (Marie-wound Skin Appearance) Assessed -Color (Marie-wound Skin Appearance) Hemosiderin Staining -Temperature (Marie-wound Skin No Abnormality Appearance) (Pt Warm) -Tenderness on Palpation (Marie-wound Yes Skin Appearance) -Ulcer Cleansing Rinsed/ Irrigated with Saline -Foul Odor after Cleansing No -Anesthetic Used 5% Lidocaine Gel Lower Limb Edema Present Yes Right Calf (cm) 42 Right Ankle (cm) 28.5 Left Calf (cm) 43 Left Ankle (cm) 32 WC - Nurse 2 - General Ulcer CM Notes Start: 12/10/22 09:38 Freq: Status: Active Protocol: Activity Type Activity Date Activity User E-sign Co-sign Detail Recorded Client Recorded Date Recorded By Document 12/10/22 10:18 MW [id number] 12/10/22 11:06 MW Document 12/17/22 09:58 BMF [id number] 12/17/22 10:35 BMF Edit Result 12/17/22 09:58 BMF (1) [id number] 12/17/22 12:48 PL Document 12/24/22 11:41 MW [id number] 12/24/22 12:01 MW Document 01/07/23 10:20 MW [id number] 01/07/23 10:50 MW (1) #17 right lateral LE cluster - Debridement - Subq, 1st 20sq cm No => Yes - Debridement, SubQ, ea addt'l 20sq cm => 11 or part thereof 12/10/22 12/17/22 12/24/22 10:18 09:58 11:41 Wound Center Nurse 2 #17 right lateral LE cluster -Time 10:18 10:05 11:43 -Correct Patient Yes Yes Yes -Correct Side, Site, Position Yes Yes Yes -Correct Procedure Yes Yes Yes -Procedure Performed Yes Yes No -Type of Procedure Debridement Debridement -Clinical Debridement Subcutaneous Subcutaneous -Tissue Removed Subcutaneous Subcutaneous -Post Debridement (cm) - Length 2.5 0.5 -Post Debridement (cm) - Width 5.0 2.9 -Post Debridement (cm) - Depth 0.1 0.1 -Total Square (Post) (cm) 12.50 1.45 -Area of Debridement (cm) - Length 2.5 0.5 -Area of Debridement (cm) - Width 5.0 2.9 -Total Square (Area) (cm) 12.50 1.45 -Tunneling No No No -Undermining/Tunneling No No No -Circular Undermining No No No -Wound/Ulcer Outcome Not Healed Not Healed Healed- Epithelialized -Ulcer Cleansing Rinsed/ Rinsed/ Irrigated with Irrigated with Saline Saline -Foul Odor after Cleansing No No -Bioengineered Tissue No No -Bleeding Controlled with Pressure Pressure -Treatment Response Procedure Procedure Tolerated Well Tolerated Well -Offloading No -Assistive Device(s) Wheelchair -Debridement - Subq, 1st 20sq cm Yes Yes -Debridement, SubQ, ea addt'l 20sq cm 16 11 or part thereof 16. LLE cluster -Time 10:20 -Correct Patient Yes -Correct Side, Site, Position Yes -Correct Procedure Yes -Procedure Performed No -Tunneling No -Undermining/Tunneling No -Circular Undermining No -Wound/Ulcer Outcome Converted 15.RLE medial -Time 10:25 10:06 -Correct Patient Yes Yes -Correct Side, Site, Position Yes Yes -Correct Procedure Yes Yes -Procedure Performed Yes Yes -Type of Procedure Debridement Debridement -Clinical Debridement Subcutaneous Subcutaneous -Tissue Removed Subcutaneous Subcutaneous -Post Debridement (cm) - Length 1.0 0 -Post Debridement (cm) - Width 0.8 0 -Post Debridement (cm) - Depth 0.1 0 -Total Square (Post) (cm) 0.80 0 -Area of Debridement (cm) - Length 1.0 0 -Area of Debridement (cm) - Width 0.8 0 -Total Square (Area) (cm) 0.80 0 -Tunneling No No -Undermining/Tunneling No No -Circular Undermining No No -Wound/Ulcer Outcome Not Healed Healed- Epithelialized -Ulcer Cleansing Rinsed/ Rinsed/ Irrigated with Irrigated with Saline Saline -Foul Odor after Cleansing No No -Bioengineered Tissue No No -Bleeding Controlled with Pressure Pressure -Treatment Response Procedure Procedure Tolerated Well Tolerated Well -Offloading No -Assistive Device(s) Wheelchair -Debridement - Subq, 1st 20sq cm No No #20 right [place]ork -Time -Correct Patient -Correct Side, Site, Position -Correct Procedure -Procedure Performed -Type of Procedure -Clinical Debridement -Tissue Removed -Post Debridement (cm) - Length -Post Debridement (cm) - Width -Post Debridement (cm) - Depth -Total Square (Post) (cm) -Area of Debridement (cm) - Length -Area of Debridement (cm) - Width -Total Square (Area) (cm) -Tunneling -Undermining/Tunneling -Circular Undermining -Wound/Ulcer Outcome -Ulcer Cleansing -Foul Odor after Cleansing -Bioengineered Tissue -Bleeding Controlled with -Treatment Response -Offloading -Debridement - Subq, 20sq cm #19 Left Lateral LE cluster -Time 10:56 10:01 11:43 -Correct Patient Yes Yes Yes -Correct Side, Site, Position Yes Yes Yes -Correct Procedure Yes Yes Yes -Procedure Performed Yes Yes Yes -Type of Procedure Debridement Debridement Debridement -Clinical Debridement Subcutaneous Subcutaneous Subcutaneous -Tissue Removed Subcutaneous Subcutaneous Subcutaneous -Post Debridement (cm) - Length 10.5 10 1.7 -Post Debridement (cm) - Width 8.5 7 1.4 -Post Debridement (cm) - Depth 0.1 0.1 0.1 -Total Square (Post) (cm) 89.25 70 2.38 -Area of Debridement (cm) - Length 10.5 10 1.7 -Area of Debridement (cm) - Width 8.5 7 1.4 -Total Square (Area) (cm) 89.25 70 2.38 -Tunneling No No No -Undermining/Tunneling No No No -Circular Undermining No No No -Wound/Ulcer Outcome Not Healed Not Healed Not Healed -Ulcer Cleansing Rinsed/ Rinsed/ Rinsed/ Irrigated with Irrigated with Irrigated with Saline Saline Saline -Foul Odor after Cleansing No No No -Bioengineered Tissue No No No -Bleeding Controlled with Pressure Pressure -Treatment Response Procedure Procedure Procedure Tolerated Well Tolerated Well Tolerated Well -Offloading No No -Assistive Device(s) Wheelchair -Debridement - Subq, 1st 20sq cm No No Yes -Debridement, SubQ, ea addt'l 20sq cm 3 or part thereof #18 Left medial LE cluster -Time 10:55 10:02 11:43 -Correct Patient Yes Yes Yes -Correct Side, Site, Position Yes Yes Yes -Correct Procedure Yes Yes Yes -Procedure Performed Yes Yes Yes -Type of Procedure Debridement Debridement Debridement -Clinical Debridement Subcutaneous Subcutaneous Subcutaneous -Tissue Removed Subcutaneous Subcutaneous Subcutaneous -Post Debridement (cm) - Length 17.0 14 7.0 -Post Debridement (cm) - Width 13.0 11 8.5 -Post Debridement (cm) - Depth 0.1 0.1 0.1 -Total Square (Post) (cm) 221.00 154 59.50 -Area of Debridement (cm) - Length 17.0 14 7.0 -Area of Debridement (cm) - Width 13.0 11 8.5 -Total Square (Area) (cm) 221.00 154 59.50 -Tunneling No No No -Undermining/Tunneling No No No -Circular Undermining No No No -Wound/Ulcer Outcome Not Healed Not Healed Not Healed -Ulcer Cleansing Rinsed/ Rinsed/ Rinsed/ Irrigated with Irrigated with Irrigated with Saline Saline Saline -Foul Odor after Cleansing No No No -Bioengineered Tissue No No No -Bleeding Controlled with Pressure Pressure -Treatment Response Procedure Procedure Tolerated Well Tolerated Well -Offloading No No -Assistive Device(s) Wheelchair -Debridement - Subq, 1st 20sq cm No No No Pain Scale: 0-10 Numeric Is Patient Pain Free? Yes Yes Yes 01/07/23 10:20 Wound Center Nurse 2 #17 right lateral LE cluster -Time -Correct Patient -Correct Side, Site, Position -Correct Procedure -Procedure Performed -Type of Procedure -Clinical Debridement -Tissue Removed -Post Debridement (cm) - Length -Post Debridement (cm) - Width -Post Debridement (cm) - Depth -Total Square (Post) (cm) -Area of Debridement (cm) - Length -Area of Debridement (cm) - Width -Total Square (Area) (cm) -Tunneling -Undermining/Tunneling -Circular Undermining -Wound/Ulcer Outcome -Ulcer Cleansing -Foul Odor after Cleansing -Bioengineered Tissue -Bleeding Controlled with -Treatment Response -Offloading -Assistive Device(s) -Debridement - Subq, 1st 20sq cm -Debridement, SubQ, ea addt'l 20sq cm or part thereof 16. LLE cluster -Time -Correct Patient -Correct Side, Site, Position -Correct Procedure -Procedure Performed -Tunneling -Undermining/Tunneling -Circular Undermining -Wound/Ulcer Outcome 15.RLE medial -Time -Correct Patient -Correct Side, Site, Position -Correct Procedure -Procedure Performed -Type of Procedure -Clinical Debridement -Tissue Removed -Post Debridement (cm) - Length -Post Debridement (cm) - Width -Post Debridement (cm) - Depth -Total Square (Post) (cm) -Area of Debridement (cm) - Length -Area of Debridement (cm) - Width -Total Square (Area) (cm) -Tunneling -Undermining/Tunneling -Circular Undermining -Wound/Ulcer Outcome -Ulcer Cleansing -Foul Odor after Cleansing -Bioengineered Tissue -Bleeding Controlled with -Treatment Response -Offloading -Assistive Device(s) -Debridement - Subq, 1st 20sq cm #20 right [place] -Time 10:25 -Correct Patient Yes -Correct Side, Site, Position Yes -Correct Procedure Yes -Procedure Performed Yes -Type of Procedure Debridement -Clinical Debridement Subcutaneous -Tissue Removed Subcutaneous -Post Debridement (cm) - Length 1.0 -Post Debridement (cm) - Width 0.8 -Post Debridement (cm) - Depth 0.1 -Total Square (Post) (cm) 0.80 -Area of Debridement (cm) - Length 1.0 -Area of Debridement (cm) - Width 0.8 -Total Square (Area) (cm) 0.80 -Tunneling No -Undermining/Tunneling No -Circular Undermining No -Wound/Ulcer Outcome Not Healed -Ulcer Cleansing Rinsed/ Irrigated with Saline -Foul Odor after Cleansing No -Bioengineered Tissue No -Bleeding Controlled with Pressure -Treatment Response Procedure Tolerated Well -Offloading No -Debridement - Subq, 1st 20sq cm No #19 Left Lateral LE cluster -Time 10:22 -Correct Patient Yes -Correct Side, Site, Position Yes -Correct Procedure Yes -Procedure Performed Yes -Type of Procedure Debridement -Clinical Debridement Subcutaneous -Tissue Removed Subcutaneous -Post Debridement (cm) - Length 0.8 -Post Debridement (cm) - Width 1.1 -Post Debridement (cm) - Depth 0.1 -Total Square (Post) (cm) 0.88 -Area of Debridement (cm) - Length 0.8 -Area of Debridement (cm) - Width 1.1 -Total Square (Area) (cm) 0.88 -Tunneling No -Undermining/Tunneling No -Circular Undermining No -Wound/Ulcer Outcome Not Healed -Ulcer Cleansing Rinsed/ Irrigated with Saline -Foul Odor after Cleansing No -Bioengineered Tissue No -Bleeding Controlled with Pressure -Treatment Response Procedure Tolerated Well -Offloading No -Assistive Device(s) -Debridement - Subq, 1st 20sq cm Yes -Debridement, SubQ, ea addt'l 20sq cm or part thereof #18 Left medial LE cluster -Time 10:22 -Correct Patient Yes -Correct Side, Site, Position Yes -Correct Procedure Yes -Procedure Performed Yes -Type of Procedure Debridement -Clinical Debridement Subcutaneous -Tissue Removed Subcutaneous -Post Debridement (cm) - Length 4.7 -Post Debridement (cm) - Width 7.0 -Post Debridement (cm) - Depth 0.1 -Total Square (Post) (cm) 32.90 -Area of Debridement (cm) - Length 4.7 -Area of Debridement (cm) - Width 7.0 -Total Square (Area) (cm) 32.90 -Tunneling No -Undermining/Tunneling No -Circular Undermining No -Wound/Ulcer Outcome Not Healed -Ulcer Cleansing Rinsed/ Irrigated with Saline -Foul Odor after Cleansing No -Bioengineered Tissue No -Bleeding Controlled with Pressure -Treatment Response Procedure Tolerated Well -Offloading No -Assistive Device(s) -Debridement - Subq, 1st 20sq cm No Pain Scale: 0-10 Numeric Is Patient Pain Free? Yes WC - Nurse 3 - General Ulcer D/C NN Start: 12/10/22 09:38 Freq: Status: Active Protocol: Activity Type Activity Date Activity User E-sign Co-sign Detail Recorded Client Recorded Date Recorded By Document 12/10/22 11:09 DL [id number] 12/10/22 11:12 DL Document 12/17/22 11:30 RB [id number] 12/17/22 11:34 RB Document 12/24/22 12:22 RB [id number] 12/24/22 12:24 RB Document 01/07/23 11:00 DL [id number] 01/07/23 11:02 DL 12/10/22 12/17/22 12/24/22 11:09 11:30 12:22 Wound Care Center Nurse 3 #17 right lateral LE cluster -Ulcer Cleansing Rinsed/ Irrigated with Saline -Foul Odor after Cleansing No -Primary Dressing Applied Aquacel Extra, NonAdherent NonAdherent Contact Layer Contact Layer -Other Dressing AQUACEL EXTRA -Primary Dressing Covered/Secured with Dry Gauze & Dry Gauze,Dry Roll Gauze, Gauze & Roll Secured with Gauze,Secured Tape with Tape -Aquacel Extra 1 15.RLE medial -Ulcer Cleansing Rinsed/ Rinsed/ Irrigated with Irrigated with Saline Saline -Foul Odor after Cleansing No -Primary Dressing Applied NonAdherent NonAdherent Contact Layer Contact Layer -Other Dressing aquacel EX AQUACEL EXTRA -Primary Dressing Covered/Secured with Dry Gauze & Dry Gauze,Dry Roll Gauze, Gauze & Roll Secured with Gauze,Secured Tape with Tape #20 right [place] -Ulcer Cleansing -Foul Odor after Cleansing -Negative Pressure Wound Therapy -Primary Dressing Applied -Primary Dressing Covered/Secured with -Aquacel Extra #19 Left Lateral LE cluster -Ulcer Cleansing Rinsed/ Rinsed/ Rinsed/ Irrigated with Irrigated with Irrigated with Saline Saline Saline -Foul Odor after Cleansing No -Primary Dressing Applied Aquacel Extra, Aquacel Extra, Fibracol Plus NonAdherent NonAdherent 4x4,NonAdherent Contact Layer Contact Layer Contact Layer -Other Dressing DOUBLE LAYER ABD ADAPTIC/ AQUACEL/ ABD PAD -Primary Dressing Covered/Secured with Dry Gauze & Dry Gauze,Dry Dry Gauze,Dry Roll Gauze, Gauze & Roll Gauze & Roll Secured with Gauze,Secured Gauze,Secured Tape with Tape with Tape -Aquacel Extra 1 2 -Fibracol Plus 4x4 1 #18 Left medial LE cluster -Ulcer Cleansing Rinsed/ Rinsed/ Irrigated with Irrigated with Saline Saline -Foul Odor after Cleansing No -Primary Dressing Applied Aquacel Extra, NonAdherent Fibracol Plus NonAdherent Contact Layer 4x4,NonAdherent Contact Layer Contact Layer -Other Dressing AQUACEL ABD -Primary Dressing Covered/Secured with Dry Gauze & Dry Gauze,Dry Dry Gauze & Roll Gauze, Gauze & Roll Roll Gauze, Secured with Gauze,Secured Secured with Tape with Tape Tape -Aquacel Extra 1 -Fibracol Plus 4x4 1 Left -Compression Wrap Marcio Wrap -Other MARCIO cotton liner marcio Right -Compression Wrap Marcio Wrap -Other MARCIO cotton liner then marcio Treatment Response Procedure Procedure Procedure Tolerated Well Tolerated Well Tolerated Well Pain Scale: 0-10 Numeric Is Patient Pain Free? Yes Yes Yes WC - Visit Discharge Discharge Condition Stable Stable Stable Ambulatory Status Wheelchair Wheelchair Ambulatory, Walker Transportation [facility]CF trans Private Auto Private Auto Medication Reconcilliation completed & No No provided to patient/care provider Clinical Summary of Care Provided Yes Yes Facility Type [facility] Orders Sent Yes 01/07/23 11:00 Wound Care Center Nurse 3 #17 right lateral LE cluster -Ulcer Cleansing -Foul Odor after Cleansing -Primary Dressing Applied -Other Dressing -Primary Dressing Covered/Secured with -Aquacel Extra 15.RLE medial -Ulcer Cleansing -Foul Odor after Cleansing -Primary Dressing Applied -Other Dressing -Primary Dressing Covered/Secured with #20 right [place] -Ulcer Cleansing Rinsed/ Irrigated with Saline -Foul Odor after Cleansing No -Negative Pressure Wound Therapy N/A -Primary Dressing Applied Aquacel Extra, NonAdherent Contact Layer -Primary Dressing Covered/Secured with Dry Gauze & Roll Gauze, Secured with Tape -Aquacel Extra 1 #19 Left Lateral LE cluster -Ulcer Cleansing Rinsed/ Irrigated with Saline -Foul Odor after Cleansing No -Primary Dressing Applied Aquacel Extra, NonAdherent Contact Layer -Other Dressing -Primary Dressing Covered/Secured with Dry Gauze & Roll Gauze, Secured with Tape -Aquacel Extra 0 -Fibracol Plus 4x4 #18 Left medial LE cluster -Ulcer Cleansing Rinsed/ Irrigated with Saline -Foul Odor after Cleansing No -Primary Dressing Applied Aquacel Extra, NonAdherent Contact Layer -Other Dressing -Primary Dressing Covered/Secured with Dry Gauze & Roll Gauze, Secured with Tape -Aquacel Extra 0 -Fibracol Plus 4x4 Left -Compression Wrap -Other Right -Compression Wrap -Other Treatment Response Pain Scale: 0-10 Numeric Is Patient Pain Free? Yes WC - Visit Discharge Discharge Condition Ambulatory Status Transportation Medication Reconcilliation completed & provided to patient/care provider Clinical Summary of Care Provided Facility Type Orders Sent Additional Wound Wound debrided: Right lateral LE Laterality: Right Type of Debridement: Excisional debridement Anesthesia Used: 4% Lidocaine Solution Depth: Down to and including healthy tissue and in the subcutaneous layer Percentage of wound debrided: 100 Instrument Used: 5mm curette Tissue Removed: Yellow slough, devitalized tissue Severity: Fat Layer Exposed Amount of bleeding with debridement: Mild Bleeding Controlled with: Compression and gauze Patient tolerated procedure: Patient tolerated procedure well Additional Wound Wound debrided: left medial LE cluster Laterality: Left Type of Debridement: Excisional debridement Anesthesia Used: 4% Lidocaine Solution and 5% Lidocaine Gel Depth: Down to and including healthy tissue and in the subcutaneous layer Percentage of wound debrided: 100 Instrument Used: 5mm curette Tissue Removed: yellow slough, devitalized tissue Severity: Fat Layer Exposed Amount of bleeding with debridement: Mild Bleeding Controlled with: Compression and gauze Patient tolerated procedure: Patient tolerated procedure well Assessment/Plan Assessment/Plan (1) Ulcer of right lower extremity with fat layer exposed: CODE(S): L97.912 - Non-pressure chronic ulcer of unspecified part of right lower leg with fat layer exposed (2) Ulcer of left lower extremity with fat layer exposed: CODE(S): L97.922 - Non-pressure chronic ulcer of unspecified part of left lower leg with fat layer exposed (3) Venous insufficiency: CODE(S): I87.2 - Venous insufficiency (chronic) (peripheral) (4) Edema: CODE(S): R60.9 - Edema, unspecified QUALIFIERS: Edema type: unspecified Qualified Code(s): R60.9 - Edema, unspecified (5) History of CVA (cerebrovascular accident): CODE(S): Z86.73 - Personal history of transient ischemic attack (TIA), and cerebral infarction without residual deficits (6) Venous ulcer of left lower extremity with varicose veins: CODE(S): I83.029 - Varicose veins of left lower extremity with ulcer of unspecified site (7) Venous ulcer of both lower extremities with varicose veins: CODE(S): I83.019 - Varicose veins of right lower extremity with ulcer of unspecified site; I83.029 - Varicose veins of left lower extremity with ulcer of unspecified site (8) Venous ulcers of both lower extremities: CODE(S): I87.2 - Venous insufficiency (chronic) (peripheral) (9) Lymphedema: CODE(S): I89.0 - Lymphedema, not elsewhere classified PLAN: Plan Debridement performed today in clinic as annotated above. At home wound-care instructions: Apply Aquacel Extra and adaptic to ulcers, compression with MARCIO bandages and increase lasix to 2 tabs BID. Off-loading: The patient was instructed to avoid pressure and friction on the affected areas. Reposition every 2 hours at minimum. Avoid prolonged standing and/or dangling of legs. When seated, feet should be elevated at chest level. Frequent ambulation is encouraged. Encouraged lymphedema pump use. Diet: Patient encouraged to increase protein intake while taking caution to avoid high carbohydrate and/or sugar intake. Labs/cultures/imaging: Follow-up: Return in 1 week for wound care follow up. Return sooner or report to the emergency room should symptoms worsen, or new symptoms arise. Note: [employer] speech recognition back feeder plywood layup line software was used to create portions of this document. Sound-alike and misspelled words, as well as other back feeder plywood layup line errors may be contained in the documentation.
== END 2023-01-07 23:59 | disposition home or self-care (01) ==
LOC: WC 10:00
PROVIDERS: PCP Family Medicine; Visit Provider Family Medicine
DX: L97.912 Non-pressure chronic ulcer of unspecified part of right lower leg with fat layer exposed (principal); L97.922 Non-pressure chronic ulcer of unspecified part of left lower leg with fat layer exposed; I87.2 Venous insufficiency (chronic) (peripheral); I83.93 Asymptomatic varicose veins of bilateral lower extremities; R60.9 Edema, unspecified; I89.0 Lymphedema, not elsewhere classified; M79.10 Myalgia, unspecified site; M79.605 Pain in left leg; Z86.73 Personal history of transient ischemic attack (TIA), and cerebral infarction without residual deficits
CPT/HCPCS: 11042; 11045

== ENCOUNTER 2023-02-04 09:30 | Outpatient (RCR) | payer MEDICARE, OTHER, SELFPAY ==
[2023-01-08 00:57] VITALS: BP 122/62; PULSE 72; RESP 18; TEMP 36.1
[2023-01-14 10:12] VITALS: BP 139/85; PULSE 62; RESP 18; TEMP 36.1
--- NOTE | 2023-01-14 14:37 | PN.PCM_ITS ---
History of Present Illness Date of Service: 01/14/23 Chief Complaint: venous ulcers of bilateral lower extremities History of Wound: Mauricio is a 67 yo gentleman who is here today for evaluation of ulcers to to his bilateral lower legs. He has been treated multiple times in the past at the wound healing center for similar ulcers. The left LE ulcer started after he developed increased swelling and blisters of left leg in October and the right leg started sometime at the end of October. He was seen at PCP's office a culture was taken and it was resistant to several antibiotics. He was treated initially with Levaquin but had myalgias and then was treated with doxycycline which he finished 2 days ago. He denies improvement and is having swelling to his left calf and thigh. He has been having swelling to both lower extremities for many years and it has worsened over the last few months. He has not been compliant with compression. He has had increased pain especially in the left leg. He has clear yellow drainage and redness without odor or warmth. He is anti- coagulated on coumadin. He has been washing with Dial soap and witch ifrah. He had been using Collagen at times and using Calcium Alginate and covering with ABD pads during October. He was treated with 3M compression and Aquacel Ag. He was referred to the wound center for ongoing treatment. His ulcers have moderate to heavy drainage. He was recently hospitalized for cellulitis and edema for the last 10 days. He was in the hospital from 11/30/22 until 12/09/22 for treatment of cellulitis and edema. He underwent treatment with Vancomycin and IV lasix and compression. Discharged on 12/09/22 and is currently in the Skilled [facility] of [facility]. He returned to his assisted living apartment on Tuesday12/21/22. Subjective Subjective He tolerated treatment this week with adaptic, Aquacel and gauze and MARCIO bandages. His ulcers and edema are improved this week. Ulcer of right LE is healed again this week. Objective Data Objective Data Vital Signs: Vital Signs Temp Pulse Resp BP O2 Del Method 97.0 F L 62 18 139/85 H Room Air 01/14/23 10:12 01/14/23 10:12 01/14/23 10:12 01/14/23 10:12 01/14/23 10:12 Oxygen Delivery Method Room Air Physical Exam Const alert, oriented x3 and no apparent distress General Appearance: cooperative and comfortable HEENT normocephalic and head/scalp atraumatic Lymph Lymphatic: lymphedema moderate Resp normal respiratory effort Effort and Inspection: able to speak in complete sentences Cardio regular rate and regular rhythm Extremity General Extremity: edema bilateral lower extremity Details: severe Skin Wounds: wounds noted Wound Narrative: as in clinical panel Psych mental status grossly normal, thought process normal, cooperative and affect normal Debridement Note Debridement Note Wound debrided: Left lateral LE cluster Laterality: Left Type of Debridement: Excisional debridement Anesthesia Used: 4% Lidocaine Solution Depth: Down to and including healthy tissue and in the subcutaneous layer Percentage of wound debrided: 100 Instrument Used: 5mm curette Tissue Removed: Yellow slough, devitalized tissue Severity: Fat Layer Exposed Amount of bleeding with debridement: Mild Bleeding Controlled with: Compression and gauze Patient tolerated procedure: Patient tolerated procedure well Post-Debridement Measurements and Additional Note: Post-Debridement Measurements/Treatment - Nurse 1 - General Ulcer Assessment Start: 01/14/23 10:12 Freq: Status: Active Protocol: ONDINA Activity Type Activity Date Activity User E-sign Co-sign Detail Recorded Client Recorded Date Recorded By Document 01/14/23 10:12 MW Desktop 01/14/23 10:25 MW 01/14/23 10:12 - Today's Visit Information Type of service Follow-up Visit (Physician/[employer] ) Arrival Mode Ambulatory, Walker Transfer Assistance None Accompanied by SELF Patient Identification Verified (Name & Yes ) Patient Requires Transmission-Based No Precautions Safety Precautions Fall Prevention Vital Signs Temperature (97.8 F-99.1 F) 97.0 F L Temperature Source Temporal Pulse Rate (60-100) 62 Pulse Location Monitor Respiratory Rate (12-18) 18 Respiratory rate source Observation Oxygen Delivery Method Room Air Blood Pressure (90/60-120/80) 139/85 H Blood Pressure Mean (mm Hg) 103 Source Monitor Position Sitting Blood Pressure Location Right Arm History Since Last Visit- (Skip if this is Patient's initial visit) Have you changed medications since your No last visit? Any new allergies or adverse reactions No Had a fall/change in ADL's that may No increase risk of falls Signs or symptoms of abuse and/or No neglect since last visit Have you been in the hospital since your No last visit? Has dressing in place as prescribed Yes Has compression in place as prescribed Yes Has offloadiing in place as prescribed N/A Experienced any changes in pain level or No management Left Footwear Regular Shoe Right Footwear Regular Shoe Pain Scale: 0-10 Numeric Is Patient Pain Free? Yes WC - Nurse 1 - General Ulcer Measurement Start: 01/14/23 10:12 Freq: Status: Active Protocol: Activity Type Activity Date Activity User E-sign Co-sign Detail Recorded Client Recorded Date Recorded By Document 01/14/23 10:12 MW Desktop 01/14/23 10:25 MW 01/14/23 10:12 Wound Center Nurse 1 #19 Left Lateral LE cluster -Combined with other wound No -Current Size (cm) - Length 1.1 -Current Size (cm) - Width 0.9 -Current Size (cm) - Depth 0.1 -Total Square Cm 0.99 -Photo Taken No -Epithelialization None Present -Tunneling No -Undermining/Tunneling No -Circular Undermining No -Exudate Amt Small -Exudate Type Serosanguineous -Wound Margin Flat & Intact -Granulation Amt Large (67-100%) -Granulation Quality [place] -Slough/Fibrin Yes -Necrosis Amt Small (1-33%) -Necrotic Tissue Type Adherent Slough -Structure Exposed N/A -Texture (Marie-wound Skin Appearance) Assessed, Localized Edema ,Scarring -Moisture (Marie-wound Skin Appearance) Assessed -Color (Marie-wound Skin Appearance) Assessed, Hemosiderin Staining,Rubor -Temperature (Marie-wound Skin No Abnormality Appearance) (Pt Warm) -Tenderness on Palpation (Marie-wound No Skin Appearance) -Ulcer Cleansing Rinsed/ Irrigated with Saline -Foul Odor after Cleansing No -Anesthetic Used 5% Lidocaine Gel #18 Left medial LE cluster -Combined with other wound No -Current Size (cm) - Length 4.5 -Current Size (cm) - Width 8.0 -Current Size (cm) - Depth 0.1 -Total Square Cm 36.00 -Photo Taken No -Epithelialization None Present -Tunneling No -Undermining/Tunneling No -Circular Undermining No -Exudate Amt Small -Exudate Type Serosanguineous -Wound Margin Flat & Intact -Granulation Amt Large (67-100%) -Granulation Quality [place] -Slough/Fibrin Yes -Necrosis Amt Small (1-33%) -Necrotic Tissue Type Adherent Slough -Structure Exposed N/A -Texture (Marie-wound Skin Appearance) Assessed, Localized Edema ,Scarring -Moisture (Marie-wound Skin Appearance) Assessed -Color (Marie-wound Skin Appearance) No Abnormality -Temperature (Marie-wound Skin No Abnormality Appearance) (Pt Warm) -Tenderness on Palpation (Marie-wound No Skin Appearance) -Ulcer Cleansing Rinsed/ Irrigated with Saline -Foul Odor after Cleansing No -Anesthetic Used 5% Lidocaine Gel Lower Limb Edema Present Yes Right Calf (cm) 45.0 Right Ankle (cm) 29.0 Left Calf (cm) 44.5 Left Ankle (cm) 29.0 WC - Nurse 2 - General Ulcer CM Notes Start: 01/14/23 10:12 Freq: Status: Active Protocol: Activity Type Activity Date Activity User E-sign Co-sign Detail Recorded Client Recorded Date Recorded By Document 01/14/23 10:25 MW Desktop 01/14/23 10:42 MW 01/14/23 10:25 Wound Center Nurse 2 #19 Left Lateral LE cluster -Time 10:25 -Correct Patient Yes -Correct Side, Site, Position Yes -Correct Procedure Yes -Procedure Performed Yes -Type of Procedure Debridement -Clinical Debridement Subcutaneous -Tissue Removed Subcutaneous -Post Debridement (cm) - Length 1.2 -Post Debridement (cm) - Width 0.8 -Post Debridement (cm) - Depth 0.1 -Total Square (Post) (cm) 0.96 -Area of Debridement (cm) - Length 1.2 -Area of Debridement (cm) - Width 0.8 -Total Square (Area) (cm) 0.96 -Tunneling No -Undermining/Tunneling No -Circular Undermining No -Wound/Ulcer Outcome Not Healed -Ulcer Cleansing Rinsed/ Irrigated with Saline -Foul Odor after Cleansing No -Bioengineered Tissue No -Bleeding Controlled with Pressure -Treatment Response Procedure Tolerated Well -Offloading No -Debridement - Subq, 1st 20sq cm Yes -Debridement, SubQ, ea addt'l 20sq cm 1 or part thereof #18 Left medial LE cluster -Time 10:26 -Correct Patient Yes -Correct Side, Site, Position Yes -Correct Procedure Yes -Procedure Performed Yes -Type of Procedure Debridement -Clinical Debridement Subcutaneous -Tissue Removed Subcutaneous -Post Debridement (cm) - Length 4.2 -Post Debridement (cm) - Width 7.5 -Post Debridement (cm) - Depth 0.2 -Total Square (Post) (cm) 31.50 -Area of Debridement (cm) - Length 4.2 -Area of Debridement (cm) - Width 7.5 -Total Square (Area) (cm) 31.50 -Tunneling No -Undermining/Tunneling No -Circular Undermining No -Wound/Ulcer Outcome Not Healed -Ulcer Cleansing Rinsed/ Irrigated with Saline -Foul Odor after Cleansing No -Bioengineered Tissue No -Bleeding Controlled with Pressure -Treatment Response Procedure Tolerated Well -Offloading No -Debridement - Subq, 1st 20sq cm No Pain Scale: 0-10 Numeric Is Patient Pain Free? Yes WC - Nurse 3 - General Ulcer D/C NN Start: 01/14/23 10:12 Freq: Status: Active Protocol: Activity Type Activity Date Activity User E-sign Co-sign Detail Recorded Client Recorded Date Recorded By Document 01/14/23 10:49 MW Desktop 01/14/23 10:51 MW 01/14/23 10:49 Wound Care Center Nurse 3 #19 Left Lateral LE cluster -Ulcer Cleansing Rinsed/ Irrigated with Saline -Foul Odor after Cleansing No -Negative Pressure Wound Therapy N/A -Primary Dressing Applied Aquacel Extra -Primary Dressing Covered/Secured with Dry Gauze & Roll Gauze, Secured with Tape -Other Covering ABD PAD -Aquacel Extra 1 #18 Left medial LE cluster -Ulcer Cleansing Rinsed/ Irrigated with Saline -Foul Odor after Cleansing No -Negative Pressure Wound Therapy N/A -Other Dressing AQUACEL EXTRA -Primary Dressing Covered/Secured with Dry Gauze & Roll Gauze, Secured with Tape -Other Covering ABD PAD Right -Lotion applied to leg before No compression wrap -Compression Wrap Marcio Wrap Left -Lotion applied to leg before No compression wrap -Compression Wrap Marcio Wrap Treatment Response Procedure Tolerated Well Pain Scale: 0-10 Numeric Is Patient Pain Free? Yes Teaching: Wound Center Dressing Your Wound -Person Taught Patient -Teaching Method Discussion, Demonstration -Response to teaching Verbalize understanding WC - Visit Discharge Discharge Condition Stable Ambulatory Status Ambulatory, Walker Transportation Private Auto Accompanied by SHANAE Medication Reconcilliation completed & No provided to patient/care provider Clinical Summary of Care Provided Yes Additional Wound Wound debrided: left medial LE cluster Laterality: Left Type of Debridement: Excisional debridement Anesthesia Used: 4% Lidocaine Solution and 5% Lidocaine Gel Depth: Down to and including healthy tissue and in the subcutaneous layer Percentage of wound debrided: 100 Instrument Used: 5mm curette Tissue Removed: yellow slough, devitalized tissue Severity: Fat Layer Exposed Amount of bleeding with debridement: Mild Bleeding Controlled with: Compression and gauze Patient tolerated procedure: Patient tolerated procedure well Assessment/Plan Assessment/Plan (1) Ulcer of right lower extremity with fat layer exposed: CODE(S): L97.912 - Non-pressure chronic ulcer of unspecified part of right lower leg with fat layer exposed (2) Ulcer of left lower extremity with fat layer exposed: CODE(S): L97.922 - Non-pressure chronic ulcer of unspecified part of left lower leg with fat layer exposed (3) Venous insufficiency: CODE(S): I87.2 - Venous insufficiency (chronic) (peripheral) (4) Edema: CODE(S): R60.9 - Edema, unspecified QUALIFIERS: Edema type: unspecified Qualified Code(s): R60.9 - Edema, unspecified (5) History of CVA (cerebrovascular accident): CODE(S): Z86.73 - Personal history of transient ischemic attack (TIA), and cerebral infarction without residual deficits (6) Venous ulcer of left lower extremity with varicose veins: CODE(S): I83.029 - Varicose veins of left lower extremity with ulcer of unspecified site (7) Venous ulcer of both lower extremities with varicose veins: CODE(S): I83.019 - Varicose veins of right lower extremity with ulcer of unspecified site; I83.029 - Varicose veins of left lower extremity with ulcer of unspecified site (8) Venous ulcers of both lower extremities: CODE(S): I87.2 - Venous insufficiency (chronic) (peripheral) (9) Lymphedema: CODE(S): I89.0 - Lymphedema, not elsewhere classified PLAN: Plan Debridement performed today in clinic as annotated above. At home wound-care instructions: Apply Aquacel Extra to ulcers, compression with MARCIO bandages and increase lasix to 2 tabs BID. Off-loading: The patient was instructed to avoid pressure and friction on the affected areas. Reposition every 2 hours at minimum. Avoid prolonged standing and/or dangling of legs. When seated, feet should be elevated at chest level. Frequent ambulation is encouraged. Encouraged lymphedema pump use. Diet: Patient encouraged to increase protein intake while taking caution to avoid high carbohydrate and/or sugar intake. Labs/cultures/imaging: Follow-up: Return in 1 week for wound care follow up. Return sooner or report to the emergency room should symptoms worsen, or new symptoms arise. Note: [employer] speech recognition whiskey regauger software was used to create portions of this document. Sound-alike and misspelled words, as well as other whiskey regauger errors may be contained in the documentation.
[2023-01-21 10:02] VITALS: BP 116/63; PULSE 75; RESP 20; TEMP 36.1
--- NOTE | 2023-01-21 15:04 | PCM.WC.PN ---
History of Present Illness Date of Service: 01/21/23 Chief Complaint: venous ulcers of bilateral lower extremities History of Wound: Mauricio is a 67 yo gentleman who is here today for evaluation of ulcers to to his bilateral lower legs. He has been treated multiple times in the past at the wound healing center for similar ulcers. The left LE ulcer started after he developed increased swelling and blisters of left leg in October and the right leg started sometime at the end of October. He was seen at PCP's office a culture was taken and it was resistant to several antibiotics. He was treated initially with Levaquin but had myalgias and then was treated with doxycycline which he finished 2 days ago. He denies improvement and is having swelling to his left calf and thigh. He has been having swelling to both lower extremities for many years and it has worsened over the last few months. He has not been compliant with compression. He has had increased pain especially in the left leg. He has clear yellow drainage and redness without odor or warmth. He is anti-coagulated on coumadin. He has been washing with Dial soap and witch ifrah. He had been using Collagen at times and using Calcium Alginate and covering with ABD pads during October. He was treated with 3M compression and Aquacel Ag. He was referred to the wound center for ongoing treatment. His ulcers have moderate to heavy drainage. He was recently hospitalized for cellulitis and edema for the last 10 days. He was in the hospital from 11/30/22 until 12/09/22 for treatment of cellulitis and edema. He underwent treatment with Vancomycin and IV lasix and compression. Discharged on 12/09/22 and is currently in the Skilled section of [facility]. He returned to his assisted living apartment on Tuesday12/21/22. Subjective Subjective He tolerated treatment this week with adaptic, Aquacel and gauze and MARCIO bandages. His ulcers and edema are slightly improved this week. Objective Data Objective Data Vital Signs: Vital Signs Temp Pulse Resp BP O2 Del Method 97 F L 75 20 H 116/63 Room Air 01/21/23 10:02 01/21/23 10:02 01/21/23 10:02 01/21/23 10:01/14/23 10:12 Oxygen Delivery Method Room Air Physical Exam Const alert, oriented x3 and no apparent distress General Appearance: cooperative and comfortable HEENT normocephalic and head/scalp atraumatic Lymph Lymphatic: lymphedema moderate Resp normal respiratory effort Effort and Inspection: able to speak in complete sentences Cardio regular rate and regular rhythm Extremity General Extremity: edema bilateral lower extremity Details: severe Skin Wounds: wounds noted Wound Narrative: as in clinical panel Psych mental status grossly normal, thought process normal, cooperative and affect normal Debridement Note Debridement Note Wound debrided: Left lateral LE cluster Laterality: Left Type of Debridement: Excisional debridement Anesthesia Used: 4% Lidocaine Solution Depth: Down to and including healthy tissue and in the subcutaneous layer Percentage of wound debrided: 100 Instrument Used: 5mm curette Tissue Removed: Yellow slough, devitalized tissue Severity: Fat Layer Exposed Amount of bleeding with debridement: Mild Bleeding Controlled with: Compression and gauze Patient tolerated procedure: Patient tolerated procedure well Post-Debridement Measurements and Additional Note: Post-Debridement Measurements/Treatment - Nurse 1 - General Ulcer Assessment Start: 01/14/23 10:12 Freq: Status: Active Protocol: ONDINA Activity Type Activity Date Activity User E-sign Co-sign Detail Recorded Client Recorded Date Recorded By Document 01/14/23 10:12 MW Desktop 01/14/23 10:25 MW Document 01/21/23 10:02 DL [id number] 01/21/23 10:12 DL 01/14/23 01/21/23 10:12 10:02 - Today's Visit Information Type of service Follow-up Visit Follow-up Visit (Physician/GRAPHIC ARTS TECHNICIAN (Physician/GRAPHIC ARTS TECHNICIAN ) ) Arrival Mode Ambulatory, Ambulatory, Walker Walker Transfer Assistance None None Accompanied by SELF Patient Identification Verified (Name & Yes Yes ) Patient Requires Transmission-Based No No Precautions Safety Precautions Fall Prevention Vital Signs Temperature (97.8 F-99.1 F) 97.0 F L 97 F L Temperature Source Temporal Temporal Pulse Rate (60-100) 62 75 Pulse Location Monitor Monitor Respiratory Rate (12-18) 18 20 H Respiratory rate source Observation Observation Oxygen Delivery Method Room Air Blood Pressure (90/60-120/80) 139/85 H 116/63 Blood Pressure Mean (mm Hg) 103 80 Source Monitor Monitor Position Sitting Blood Pressure Location Right Arm History Since Last Visit- (Skip if this is Patient's initial visit) Have you changed medications since your No No last visit? Any new allergies or adverse reactions No No Had a fall/change in ADL's that may No No increase risk of falls Signs or symptoms of abuse and/or No No neglect since last visit Have you been in the hospital since your No No last visit? Has dressing in place as prescribed Yes Yes Has compression in place as prescribed Yes Yes Has offloadiing in place as prescribed N/A N/A Experienced any changes in pain level or No No management Left Footwear Regular Shoe Regular Shoe Right Footwear Regular Shoe Regular Shoe Pain Scale: 0-10 Numeric Is Patient Pain Free? Yes Yes WC - Nurse 1 - General Ulcer Measurement Start: 01/14/23 10:12 Freq: Status: Active Protocol: Activity Type Activity Date Activity User E-sign Co-sign Detail Recorded Client Recorded Date Recorded By Document 01/14/23 10:12 MW Desktop 01/14/23 10:25 MW Document 01/21/23 10:02 DL [id number] 01/21/23 10:12 DL 01/14/23 01/21/23 10:12 10:02 Wound Center Nurse 1 #19 Left Lateral LE cluster -Combined with other wound No -Current Size (cm) - Length 1.1 1.6 -Current Size (cm) - Width 0.9 1.3 -Current Size (cm) - Depth 0.1 0.1 -Total Square Cm 0.99 2.08 -Photo Taken No No -Epithelialization None Present -Tunneling No -Undermining/Tunneling No -Circular Undermining No -Exudate Amt Small Medium -Exudate Type Serosanguineous Serosanguineous -Wound Margin Flat & Intact Distinct, Outline Attached -Granulation Amt Large (67-100%) Large (67-100%) -Granulation Quality [place] Hyper- granulation,Red -Slough/Fibrin Yes -Necrosis Amt Small (1-33%) Small (1-33%) -Necrotic Tissue Type Adherent Slough Adherent Slough -Structure Exposed N/A N/A -Texture (Marie-wound Skin Appearance) Assessed, Scarring Localized Edema ,Scarring -Moisture (Marie-wound Skin Appearance) Assessed No Abnormality -Color (Marie-wound Skin Appearance) Assessed, Hemosiderin Hemosiderin Staining Staining,Rubor -Temperature (Marie-wound Skin No Abnormality No Abnormality Appearance) (Pt Warm) (Pt Warm) -Tenderness on Palpation (Marie-wound No No Skin Appearance) -Ulcer Cleansing Rinsed/ Soap and Water Irrigated with Saline -Foul Odor after Cleansing No No -Anesthetic Used 5% Lidocaine 5% Lidocaine Gel Gel #18 Left medial LE cluster -Combined with other wound No -Current Size (cm) - Length 4.5 4.5 -Current Size (cm) - Width 8.0 8 -Current Size (cm) - Depth 0.1 0.1 -Total Square Cm 36.00 36.0 -Photo Taken No No -Epithelialization None Present -Tunneling No -Undermining/Tunneling No -Circular Undermining No -Exudate Amt Small Medium -Exudate Type Serosanguineous Serosanguineous -Wound Margin Flat & Intact Distinct, Outline Attached -Granulation Amt Large (67-100%) Large (67-100%) -Granulation Quality [place] Red -Slough/Fibrin Yes -Necrosis Amt Small (1-33%) Small (1-33%) -Necrotic Tissue Type Adherent Slough Adherent Slough -Structure Exposed N/A N/A -Texture (Marie-wound Skin Appearance) Assessed, Scarring Localized Edema ,Scarring -Moisture (Marie-wound Skin Appearance) Assessed No Abnormality -Color (Marie-wound Skin Appearance) No Abnormality Hemosiderin Staining -Temperature (Marie-wound Skin No Abnormality No Abnormality Appearance) (Pt Warm) (Pt Warm) -Tenderness on Palpation (Marie-wound No No Skin Appearance) -Ulcer Cleansing Rinsed/ Soap and Water Irrigated with Saline -Foul Odor after Cleansing No No -Anesthetic Used 5% Lidocaine 5% Lidocaine Gel Gel Lower Limb Edema Present Yes Right Calf (cm) 45.0 43.6 Right Ankle (cm) 29.0 29.4 Left Calf (cm) 44.5 44.5 Left Ankle (cm) 29.0 29.5 WC - Nurse 2 - General Ulcer CM Notes Start: 01/14/23 10:12 Freq: Status: Active Protocol: Activity Type Activity Date Activity User E-sign Co-sign Detail Recorded Client Recorded Date Recorded By Document 01/14/23 10:25 MW Desktop 01/14/23 10:42 MW Document 01/21/23 10:26 MW [id number] 01/21/23 10:45 MW 01/14/23 01/21/23 10:25 10:26 Wound Center Nurse 2 #19 Left Lateral LE cluster -Time 10:25 10:28 -Correct Patient Yes Yes -Correct Side, Site, Position Yes Yes -Correct Procedure Yes Yes -Procedure Performed Yes Yes -Type of Procedure Debridement Debridement -Clinical Debridement Subcutaneous Subcutaneous -Tissue Removed Subcutaneous Subcutaneous -Post Debridement (cm) - Length 1.2 1.4 -Post Debridement (cm) - Width 0.8 1.4 -Post Debridement (cm) - Depth 0.1 0.1 -Total Square (Post) (cm) 0.96 1.96 -Area of Debridement (cm) - Length 1.2 1.4 -Area of Debridement (cm) - Width 0.8 1.4 -Total Square (Area) (cm) 0.96 1.96 -Tunneling No No -Undermining/Tunneling No No -Circular Undermining No No -Wound/Ulcer Outcome Not Healed Not Healed -Ulcer Cleansing Rinsed/ Rinsed/ Irrigated with Irrigated with Saline Saline -Foul Odor after Cleansing No No -Bioengineered Tissue No No -Bleeding Controlled with Pressure Pressure -Treatment Response Procedure Procedure Tolerated Well Tolerated Well -Offloading No No -Debridement - Subq, 1st 20sq cm Yes Yes -Debridement, SubQ, ea addt'l 20sq cm 1 2 or part thereof #18 Left medial LE cluster -Time 10:26 10:30 -Correct Patient Yes Yes -Correct Side, Site, Position Yes Yes -Correct Procedure Yes Yes -Procedure Performed Yes Yes -Type of Procedure Debridement Debridement -Clinical Debridement Subcutaneous Subcutaneous -Tissue Removed Subcutaneous Subcutaneous -Post Debridement (cm) - Length 4.2 5.0 -Post Debridement (cm) - Width 7.5 8.0 -Post Debridement (cm) - Depth 0.2 0.2 -Total Square (Post) (cm) 31.50 40.00 -Area of Debridement (cm) - Length 4.2 5.0 -Area of Debridement (cm) - Width 7.5 8.0 -Total Square (Area) (cm) 31.50 40.00 -Tunneling No No -Undermining/Tunneling No No -Circular Undermining No No -Wound/Ulcer Outcome Not Healed Not Healed -Ulcer Cleansing Rinsed/ Rinsed/ Irrigated with Irrigated with Saline Saline -Foul Odor after Cleansing No No -Bioengineered Tissue No No -Bleeding Controlled with Pressure Pressure -Treatment Response Procedure Procedure Tolerated Well Tolerated Well -Offloading No No -Debridement - Subq, 1st 20sq cm No No Pain Scale: 0-10 Numeric Is Patient Pain Free? Yes Yes - Nurse 3 - General Ulcer D/C NN Start: 01/14/23 10:12 Freq: Status: Active Protocol: Activity Type Activity Date Activity User E-sign Co-sign Detail Recorded Client Recorded Date Recorded By Document 01/14/23 10:49 MW Desktop 01/14/23 10:51 MW Document 01/21/23 10:54 DL [id number] 01/21/23 10:56 DL 01/14/23 01/21/23 10:49 10:54 Wound Care Center Nurse 3 #19 Left Lateral LE cluster -Ulcer Cleansing Rinsed/ Rinsed/ Irrigated with Irrigated with Saline Saline -Foul Odor after Cleansing No No -Negative Pressure Wound Therapy N/A -Primary Dressing Applied Aquacel Extra Aquacel Extra -Primary Dressing Covered/Secured with Dry Gauze & Dry Gauze & Roll Gauze, Roll Gauze, Secured with Secured with Tape Tape -Other Covering ABD PAD -Aquacel Extra 1 1 #18 Left medial LE cluster -Ulcer Cleansing Rinsed/ Rinsed/ Irrigated with Irrigated with Saline Saline -Foul Odor after Cleansing No No -Negative Pressure Wound Therapy N/A -Other Dressing AQUACEL EXTRA aquacel ex -Primary Dressing Covered/Secured with Dry Gauze & Dry Gauze & Roll Gauze, Roll Gauze, Secured with Secured with Tape Tape -Other Covering ABD PAD Right -Lotion applied to leg before No compression wrap -Compression Wrap Marcio Wrap -Tubular Bandage Single Layer -Size of Tubigrip Used Size E -Size E ($) 1 Left -Lotion applied to leg before No compression wrap -Compression Wrap Marcio Wrap -Tubular Bandage Single Layer -Size of Tubigrip Used Size E -Size E ($) 1 Treatment Response Procedure Procedure Tolerated Well Tolerated Well Pain Scale: 0-10 Numeric Is Patient Pain Free? Yes Yes Teaching: Wound Center Dressing Your Wound -Person Taught Patient -Teaching Method Discussion, Demonstration -Response to teaching Verbalize understanding WC - Visit Discharge Discharge Condition Stable Stable Ambulatory Status Ambulatory, Ambulatory Walker Transportation Private Auto Accompanied by SHANAE Medication Reconcilliation completed & No provided to patient/care provider Clinical Summary of Care Provided Yes Facility Type Home Health Orders Sent Yes Additional Wound Wound debrided: left medial LE cluster Laterality: Left Type of Debridement: Excisional debridement Anesthesia Used: 4% Lidocaine Solution and 5% Lidocaine Gel Depth: Down to and including healthy tissue and in the subcutaneous layer Percentage of wound debrided: 100 Instrument Used: 5mm curette Tissue Removed: yellow slough, devitalized tissue Severity: Fat Layer Exposed Amount of bleeding with debridement: Mild Bleeding Controlled with: Compression and gauze Patient tolerated procedure: Patient tolerated procedure well Assessment/Plan Assessment/Plan (1) Ulcer of right lower extremity with fat layer exposed: CODE(S): L97.912 - Non-pressure chronic ulcer of unspecified part of right lower leg with fat layer exposed (2) Ulcer of left lower extremity with fat layer exposed: CODE(S): L97.922 - Non-pressure chronic ulcer of unspecified part of left lower leg with fat layer exposed (3) Venous insufficiency: CODE(S): I87.2 - Venous insufficiency (chronic) (peripheral) (4) Edema: CODE(S): R60.9 - Edema, unspecified QUALIFIERS: Edema type: unspecified Qualified Code(s): R60.9 - Edema, unspecified (5) History of CVA (cerebrovascular accident): CODE(S): Z86.73 - Personal history of transient ischemic attack (TIA), and cerebral infarction without residual deficits (6) Venous ulcer of left lower extremity with varicose veins: CODE(S): I83.029 - Varicose veins of left lower extremity with ulcer of unspecified site (7) Venous ulcer of both lower extremities with varicose veins: CODE(S): I83.019 - Varicose veins of right lower extremity with ulcer of unspecified site; I83.029 - Varicose veins of left lower extremity with ulcer of unspecified site (8) Venous ulcers of both lower extremities: CODE(S): I87.2 - Venous insufficiency (chronic) (peripheral) (9) Lymphedema: CODE(S): I89.0 - Lymphedema, not elsewhere classified PLAN: Plan Debridement performed today in clinic as annotated above. At home wound-care instructions: Apply Aquacel Extra to ulcers, compression with MARCIO bandages and continue lasix 2 tabs BID. Off-loading: The patient was instructed to avoid pressure and friction on the affected areas. Reposition every 2 hours at minimum. Avoid prolonged standing and/or dangling of legs. When seated, feet should be elevated at chest level. Frequent ambulation is encouraged. Encouraged lymphedema pump use. Diet: Patient encouraged to increase protein intake while taking caution to avoid high carbohydrate and/or sugar intake. Labs/cultures/imaging: Follow-up: Return in 1 week for wound care follow up. Return sooner or report to the emergency room should symptoms worsen, or new symptoms arise. Note: [employer] speech recognition analytical technician software was used to create portions of this document. Sound-alike and misspelled words, as well as other analytical technician errors may be contained in the documentation.
[2023-01-28 09:48] VITALS: BP 122/71; PULSE 75; RESP 18; TEMP 36.1
--- NOTE | 2023-01-28 11:06 | PN.PCM_ITS ---
History of Present Illness Date of Service: 01/28/23 Chief Complaint: venous ulcers of bilateral lower extremities History of Wound: Mauricio is a 67 yo gentleman who is here today for evaluation of ulcers to to his bilateral lower legs. He has been treated multiple times in the past at the wound healing center for similar ulcers. The left LE ulcer started after he developed increased swelling and blisters of left leg in October and the right leg started sometime at the end of October. He was seen at PCP's office a culture was taken and it was resistant to several antibiotics. He was treated initially with Levaquin but had myalgias and then was treated with doxycycline which he finished 2 days ago. He denies improvement and is having swelling to his left calf and thigh. He has been having swelling to both lower extremities for many years and it has worsened over the last few months. He has not been compliant with compression. He has had increased pain especially in the left leg. He has clear yellow drainage and redness without odor or warmth. He is anti- coagulated on coumadin. He has been washing with Dial soap and witch ifrah. He had been using Collagen at times and using Calcium Alginate and covering with ABD pads during October. He was treated with 3M compression and Aquacel Ag. He was referred to the wound center for ongoing treatment. His ulcers have moderate to heavy drainage. He was recently hospitalized for cellulitis and edema for the last 10 days. He was in the hospital from 11/30/22 until 12/09/22 for treatment of cellulitis and edema. He underwent treatment with Vancomycin and IV lasix and compression. Discharged on 12/09/22 and is currently in the Skilled [facility] of [facility]. He returned to his assisted living apartment on Tuesday12/21/22. Subjective Subjective He tolerated treatment this week with Aquacel Extra and ABDs andtubigrips. His ulcers and edema are slightly improved this week. he did report seeing greenish drainage on ABD when he changed dressing this morning. Denies fever, chills, increased pain or increased drainage. Objective Data Objective Data Vital Signs: Vital Signs Temp Pulse Resp BP O2 Del Method 97 F L 75 18 122/71 H Room Air 01/28/23 09:48 01/28/23 09:48 01/28/23 09:48 01/28/23 09:48 01/14/23 10:12 Oxygen Delivery Method Room Air Physical Exam Const alert, oriented x3 and no apparent distress General Appearance: cooperative and comfortable HEENT normocephalic and head/scalp atraumatic Lymph Lymphatic: lymphedema moderate Resp normal respiratory effort Effort and Inspection: able to speak in complete sentences Cardio regular rate and regular rhythm Extremity General Extremity: edema bilateral lower extremity Details: severe Skin Wounds: wounds noted Wound Narrative: as in clinical panel Psych mental status grossly normal, thought process normal, cooperative and affect normal Debridement Note Debridement Note Wound debrided: Left lateral LE cluster Laterality: Left Type of Debridement: Excisional debridement Anesthesia Used: 4% Lidocaine Solution Depth: Down to and including healthy tissue and in the subcutaneous layer Percentage of wound debrided: 100 Instrument Used: 5mm curette Tissue Removed: Yellow slough, devitalized tissue Severity: Fat Layer Exposed Amount of bleeding with debridement: Mild Bleeding Controlled with: Compression and gauze Patient tolerated procedure: Patient tolerated procedure well Post-Debridement Measurements and Additional Note: Post-Debridement Measurements/Treatment - Nurse 1 - General Ulcer Assessment Start: 01/14/23 10:12 Freq: Status: Active Protocol: ONDINA Activity Type Activity Date Activity User E-sign Co-sign Detail Recorded Client Recorded Date Recorded By Document 01/14/23 10:12 MW Desktop 01/14/23 10:25 MW Document 01/21/23 10:02 DL [id number] 01/21/23 10:12 DL Document 01/28/23 09:48 RB [id number] 01/28/23 10:01 RB 01/14/23 01/21/23 01/28/23 10:12 10:02 09:48 [facility] Today's Visit Information Type of service Follow-up Visit Follow-up Visit Follow-up Visit (Physician/WEARING [employer]PAREL SHAKER (Physician/WEARING APPAREL SHAKER (Physician/WEARING APPAREL SHAKER ) ) ) Arrival Mode Ambulatory, Ambulatory, Ambulatory, Walker Walker Walker Transfer Assistance None None None Accompanied by SELF Patient Identification Verified (Name & Yes Yes Yes ) Patient Requires Transmission-Based No No No Precautions Safety Precautions Fall Prevention Vital Signs Temperature (97.8 F-99.1 F) 97.0 F L 97 F L 97 F L Temperature Source Temporal Temporal Temporal Pulse Rate (60-100) 62 75 75 Pulse Location Monitor Monitor Monitor Respiratory Rate (12-18) 18 20 H 18 Respiratory rate source Observation Observation Observation Oxygen Delivery Method Room Air Blood Pressure (90/60-120/80) 139/85 H 116/63 122/71 H Blood Pressure Mean (mm Hg) 103 80 88 Source Monitor Monitor Monitor Position Sitting Semi-Fowlers Blood Pressure Location Right Arm Left Arm History Since Last Visit- (Skip if this is Patient's initial visit) Have you changed medications since your No No No last visit? Any new allergies or adverse reactions No No No Had a fall/change in ADL's that may No No No increase risk of falls Signs or symptoms of abuse and/or No No No neglect since last visit Have you been in the hospital since your No No No last visit? Has dressing in place as prescribed Yes Yes Yes Has compression in place as prescribed Yes Yes Yes Has offloadiing in place as prescribed N/A N/A No Experienced any changes in pain level or No No No management Left Footwear Regular Shoe Regular Shoe Right Footwear Regular Shoe Regular Shoe Pain Scale: 0-10 Numeric Is Patient Pain Free? Yes Yes Yes WC - Nurse 1 - General Ulcer Measurement Start: 01/14/23 10:12 Freq: Status: Active Protocol: Activity Type Activity Date Activity User E-sign Co-sign Detail Recorded Client Recorded Date Recorded By Document 01/14/23 10:12 MW Desktop 01/14/23 10:25 MW Document 01/21/23 10:02 DL [id number] 01/21/23 10:12 DL Document 01/28/23 09:48 RB [id number] 01/28/23 10:01 RB 01/14/23 01/21/23 01/28/23 10:12 10:02 09:48 Wound Center Nurse 1 #19 Left Lateral LE cluster -Combined with other wound No No -Current Size (cm) - Length 1.1 1.6 1.4 -Current Size (cm) - Width 0.9 1.3 1.3 -Current Size (cm) - Depth 0.1 0.1 0.1 -Total Square Cm 0.99 2.08 1.82 -Photo Taken No No Yes -Epithelialization None Present -Tunneling No No -Undermining/Tunneling No No -Circular Undermining No No -Exudate Amt Small Medium Medium -Exudate Type Serosanguineous Serosanguineous Serosanguineous -Wound Margin Flat & Intact Distinct, Distinct, Outline Outline Attached Attached -Granulation Amt Large (67-100%) Large (67-100%) Medium (34-66%) -Granulation Quality [place] Hyper- [place] granulation,Red -Slough/Fibrin Yes Yes -Necrosis Amt Small (1-33%) Small (1-33%) Small (1-33%) -Necrotic Tissue Type Adherent Slough Adherent Slough Adherent Slough -Structure Exposed N/A N/A N/A -Texture (Marie-wound Skin Appearance) Assessed, Scarring Assessed, Localized Edema Localized Edema ,Scarring -Moisture (Marie-wound Skin Appearance) Assessed No Abnormality Assessed -Color (Marie-wound Skin Appearance) Assessed, Hemosiderin Assessed Hemosiderin Staining Staining,Rubor -Temperature (Marie-wound Skin No Abnormality No Abnormality No Abnormality Appearance) (Pt Warm) (Pt Warm) (Pt Warm) -Tenderness on Palpation (Marie-wound No No No Skin Appearance) -Ulcer Cleansing Rinsed/ Soap and Water Wound Cleanser Irrigated with Saline -Foul Odor after Cleansing No No No -Anesthetic Used 5% Lidocaine 5% Lidocaine 5% Lidocaine Gel Gel Gel #18 Left medial LE cluster -Combined with other wound No No -Current Size (cm) - Length 4.5 4.5 4.4 -Current Size (cm) - Width 8.0 8 8.7 -Current Size (cm) - Depth 0.1 0.1 0.1 -Total Square Cm 36.00 36.0 38.28 -Photo Taken No No Yes -Epithelialization None Present -Tunneling No No -Undermining/Tunneling No No -Circular Undermining No No -Exudate Amt Small Medium Medium -Exudate Type Serosanguineous Serosanguineous Serosanguineous -Wound Margin Flat & Intact Distinct, Distinct, Outline Outline Attached Attached -Granulation Amt Large (67-100%) Large (67-100%) Medium (34-66%) -Granulation Quality [place] Red [place] -Slough/Fibrin Yes Yes -Necrosis Amt Small (1-33%) Small (1-33%) Medium (34-66%) -Necrotic Tissue Type Adherent Slough Adherent Slough Adherent Slough -Structure Exposed N/A N/A N/A -Texture (Marie-wound Skin Appearance) Assessed, Scarring Assessed, Localized Edema Localized Edema ,Scarring -Moisture (Marie-wound Skin Appearance) Assessed No Abnormality Assessed -Color (Marie-wound Skin Appearance) No Abnormality Hemosiderin Assessed Staining -Temperature (Marie-wound Skin No Abnormality No Abnormality No Abnormality Appearance) (Pt Warm) (Pt Warm) (Pt Warm) -Tenderness on Palpation (Marie-wound No No No Skin Appearance) -Ulcer Cleansing Rinsed/ Soap and Water Wound Cleanser Irrigated with Saline -Foul Odor after Cleansing No No No -Anesthetic Used 5% Lidocaine 5% Lidocaine 5% Lidocaine Gel Gel Gel Lower Limb Edema Present Yes Yes Right Calf (cm) 45.0 43.6 Right Ankle (cm) 29.0 29.4 Left Calf (cm) 44.5 44.5 43.5 Left Ankle (cm) 29.0 29.5 31 WC - Nurse 2 - General Ulcer CM Notes Start: 01/14/23 10:12 Freq: Status: Active Protocol: Activity Type Activity Date Activity User E-sign Co-sign Detail Recorded Client Recorded Date Recorded By Document 01/14/23 10:25 MW Desktop 01/14/23 10:42 MW Document 01/21/23 10:26 MW [id number] 01/21/23 10:45 MW Edit Result 01/21/23 10:26 MW (1) [id number] 01/24/23 07:06 PL Document 01/28/23 10:14 MW [id number] 01/28/23 10:29 MW (1) #19 Left Lateral LE cluster - Debridement, SubQ, ea addt'l 20sq cm 2 => 3 or part thereof 01/14/23 01/21/23 01/28/23 10:25 10:26 10:14 Wound Center Nurse 2 #19 Left Lateral LE cluster -Time 10:25 10:28 10:14 -Correct Patient Yes Yes Yes -Correct Side, Site, Position Yes Yes Yes -Correct Procedure Yes Yes Yes -Procedure Performed Yes Yes Yes -Type of Procedure Debridement Debridement Debridement -Clinical Debridement Subcutaneous Subcutaneous Subcutaneous -Tissue Removed Subcutaneous Subcutaneous Subcutaneous -Post Debridement (cm) - Length 1.2 1.4 1.3 -Post Debridement (cm) - Width 0.8 1.4 1.3 -Post Debridement (cm) - Depth 0.1 0.1 0.1 -Total Square (Post) (cm) 0.96 1.96 1.69 -Area of Debridement (cm) - Length 1.2 1.4 1.3 -Area of Debridement (cm) - Width 0.8 1.4 1.3 -Total Square (Area) (cm) 0.96 1.96 1.69 -Tunneling No No No -Undermining/Tunneling No No No -Circular Undermining No No No -Wound/Ulcer Outcome Not Healed Not Healed Not Healed -Ulcer Cleansing Rinsed/ Rinsed/ Rinsed/ Irrigated with Irrigated with Irrigated with Saline Saline Saline -Foul Odor after Cleansing No No No -Bioengineered Tissue No No No -Bleeding Controlled with Pressure Pressure Pressure -Treatment Response Procedure Procedure Procedure Tolerated Well Tolerated Well Tolerated Well -Offloading No No No -Debridement - Subq, 1st 20sq cm Yes Yes Yes -Debridement, SubQ, ea addt'l 20sq cm 1 3 1 or part thereof #18 Left medial LE cluster -Time 10:26 10:30 10:14 -Correct Patient Yes Yes Yes -Correct Side, Site, Position Yes Yes Yes -Correct Procedure Yes Yes Yes -Procedure Performed Yes Yes Yes -Type of Procedure Debridement Debridement Debridement -Clinical Debridement Subcutaneous Subcutaneous Subcutaneous -Tissue Removed Subcutaneous Subcutaneous Subcutaneous -Post Debridement (cm) - Length 4.2 5.0 4.5 -Post Debridement (cm) - Width 7.5 8.0 7.8 -Post Debridement (cm) - Depth 0.2 0.2 0.2 -Total Square (Post) (cm) 31.50 40.00 35.10 -Area of Debridement (cm) - Length 4.2 5.0 4.5 -Area of Debridement (cm) - Width 7.5 8.0 7.8 -Total Square (Area) (cm) 31.50 40.00 35.10 -Tunneling No No No -Undermining/Tunneling No No No -Circular Undermining No No No -Wound/Ulcer Outcome Not Healed Not Healed Not Healed -Ulcer Cleansing Rinsed/ Rinsed/ Rinsed/ Irrigated with Irrigated with Irrigated with Saline Saline Saline -Foul Odor after Cleansing No No No -Bioengineered Tissue No No No -Bleeding Controlled with Pressure Pressure Pressure -Treatment Response Procedure Procedure Procedure Tolerated Well Tolerated Well Tolerated Well -Offloading No No No -Debridement - Subq, 1st 20sq cm No No No Pain Scale: 0-10 Numeric Is Patient Pain Free? Yes Yes Yes WC - Nurse 3 - General Ulcer D/C NN Start: 01/14/23 10:12 Freq: Status: Active Protocol: Activity Type Activity Date Activity User E-sign Co-sign Detail Recorded Client Recorded Date Recorded By Document 01/14/23 10:49 MW Desktop 01/14/23 10:51 MW Document 01/21/23 10:54 DL [id number] 01/21/23 10:56 DL 01/14/23 01/21/23 10:49 10:54 Wound Care Center Nurse 3 #19 Left Lateral LE cluster -Ulcer Cleansing Rinsed/ Rinsed/ Irrigated with Irrigated with Saline Saline -Foul Odor after Cleansing No No -Negative Pressure Wound Therapy N/A -Primary Dressing Applied Aquacel Extra Aquacel Extra -Primary Dressing Covered/Secured with Dry Gauze & Dry Gauze & Roll Gauze, Roll Gauze, Secured with Secured with Tape Tape -Other Covering ABD PAD -Aquacel Extra 1 1 #18 Left medial LE cluster -Ulcer Cleansing Rinsed/ Rinsed/ Irrigated with Irrigated with Saline Saline -Foul Odor after Cleansing No No -Negative Pressure Wound Therapy N/A -Other Dressing AQUACEL EXTRA aquacel ex -Primary Dressing Covered/Secured with Dry Gauze & Dry Gauze & Roll Gauze, Roll Gauze, Secured with Secured with Tape Tape -Other Covering ABD PAD Right -Lotion applied to leg before No compression wrap -Compression Wrap Marcio Wrap -Tubular Bandage Single Layer -Size of Tubigrip Used Size E -Size E ($) 1 Left -Lotion applied to leg before No compression wrap -Compression Wrap Marcio Wrap -Tubular Bandage Single Layer -Size of Tubigrip Used Size E -Size E ($) 1 Treatment Response Procedure Procedure Tolerated Well Tolerated Well Pain Scale: 0-10 Numeric Is Patient Pain Free? Yes Yes Teaching: Wound Center Dressing Your Wound -Person Taught Patient -Teaching Method Discussion, Demonstration -Response to teaching Verbalize understanding WC - Visit Discharge Discharge Condition Stable Stable Ambulatory Status Ambulatory, Ambulatory Walker Transportation Private Auto Accompanied by SHANAE Medication Reconcilliation completed & No provided to patient/care provider Clinical Summary of Care Provided Yes Facility Type Home Health Orders Sent Yes Additional Wound Wound debrided: left medial LE cluster Laterality: Left Type of Debridement: Excisional debridement Anesthesia Used: 4% Lidocaine Solution and 5% Lidocaine Gel Depth: Down to and including healthy tissue and in the subcutaneous layer Percentage of wound debrided: 100 Instrument Used: 5mm curette Tissue Removed: yellow slough, devitalized tissue Severity: Fat Layer Exposed Amount of bleeding with debridement: Mild Bleeding Controlled with: Compression and gauze Patient tolerated procedure: Patient tolerated procedure well Assessment/Plan Assessment/Plan (1) Ulcer of right lower extremity with fat layer exposed: CODE(S): L97.912 - Non-pressure chronic ulcer of unspecified part of right lower leg with fat layer exposed (2) Ulcer of left lower extremity with fat layer exposed: CODE(S): L97.922 - Non-pressure chronic ulcer of unspecified part of left lower leg with fat layer exposed (3) Venous insufficiency: CODE(S): I87.2 - Venous insufficiency (chronic) (peripheral) (4) Edema: CODE(S): R60.9 - Edema, unspecified QUALIFIERS: Edema type: unspecified Qualified Code(s): R60.9 - Edema, unspecified (5) History of CVA (cerebrovascular accident): CODE(S): Z86.73 - Personal history of transient ischemic attack (TIA), and cerebral infarction without residual deficits (6) Venous ulcer of left lower extremity with varicose veins: CODE(S): I83.029 - Varicose veins of left lower extremity with ulcer of unspecified site (7) Venous ulcer of both lower extremities with varicose veins: CODE(S): I83.019 - Varicose veins of right lower extremity with ulcer of unspecified site; I83.029 - Varicose veins of left lower extremity with ulcer of unspecified site (8) Venous ulcers of both lower extremities: CODE(S): I87.2 - Venous insufficiency (chronic) (peripheral) (9) Lymphedema: CODE(S): I89.0 - Lymphedema, not elsewhere classified PLAN: Plan Debridement performed today in clinic as annotated above. At home wound-care instructions: Apply Aquacel Extra to ulcers, Cover with ABD and wrap with gauze and use compression with tubigrips and continue lasix 2 tabs BID. Off-loading: The patient was instructed to avoid pressure and friction on the affected areas. Reposition every 2 hours at minimum. Avoid prolonged standing and/or dangling of legs. When seated, feet should be elevated at chest level. Frequent ambulation is encouraged. Encouraged lymphedema pump use. Diet: Patient encouraged to increase protein intake while taking caution to avoid high carbohydrate and/or sugar intake. Labs/cultures/imaging: Culture taken today due to change in drainage color. Will treat based on results. Follow-up: Return in 1 week for wound care follow up. Return sooner or report to the emergency room should symptoms worsen, or new symptoms arise. Note: [employer] speech recognition ecological risk assessor software was used to create portions of this document. Sound-alike and misspelled words, as well as other ecological risk assessor errors may be contained in the documentation.
[2023-02-04 09:16] VITALS: BP 125/70; PULSE 74; RESP 18; TEMP 36.5
--- NOTE | 2023-02-04 11:32 | PCM.WC.PN ---
History of Present Illness Date of Service: 02/04/23 Chief Complaint: venous ulcers of bilateral lower extremities History of Wound: Mauricio is a 67 yo gentleman who is here today for evaluation of ulcers to to his bilateral lower legs. He has been treated multiple times in the past at the wound healing center for similar ulcers. The left LE ulcer started after he developed increased swelling and blisters of left leg in October and the right leg started sometime at the end of October. He was seen at PCP's office a culture was taken and it was resistant to several antibiotics. He was treated initially with Levaquin but had myalgias and then was treated with doxycycline which he finished 2 days ago. He denies improvement and is having swelling to his left calf and thigh. He has been having swelling to both lower extremities for many years and it has worsened over the last few months. He has not been compliant with compression. He has had increased pain especially in the left leg. He has clear yellow drainage and redness without odor or warmth. He is anti-coagulated on coumadin. He has been washing with Dial soap and witch ifrah. He had been using Collagen at times and using Calcium Alginate and covering with ABD pads during October. He was treated with 3M compression and Aquacel Ag. He was referred to the wound center for ongoing treatment. His ulcers have moderate to heavy drainage. He was recently hospitalized for cellulitis and edema for the last 10 days. He was in the hospital from 11/30/22 until 12/09/22 for treatment of cellulitis and edema. He underwent treatment with Vancomycin and IV lasix and compression. Discharged on 12/09/22 and is currently in the Skilled [facility] of [facility]. He returned to his assisted living apartment on Tuesday12/21/22. Subjective Subjective He tolerated treatment this week with Aquacel Extra and ABDs and tubigrips. His ulcers and edema are slightly improved this week. Wound culture was positive for Staph and Pseudomonas. He hasn't started antibiotic yet. But was prescribed Levaquin based on sensitivities. Denies fever, chills, increased pain or increased drainage. Objective Data Objective Data Vital Signs: Vital Signs Temp Pulse Resp BP O2 Del Method 97.7 F L 74 18 125/70 H Room Air 02/04/23 09:16 02/04/23 09:16 02/04/23 09:16 02/04/23 09:16 01/14/23 10:12 Oxygen Delivery Method Room Air Lab / Micro Data Micro: Microbiology 01/28/23 10:30 Wound Abcess - Leg, Left Gram Stain - Final 01/28/23 10:30 Wound Abcess - Leg, Left Wound Culture - Final Staphylococcus aureus Enterobacter cloacae complex Pseudomonas aeruginosa 01/28/23 10:30 Wound Abcess - Leg, Left Anaerobic Culture - Final No anaerobic bacteria isolated. Physical Exam Const alert, oriented x3 and no apparent distress General Appearance: cooperative and comfortable HEENT normocephalic and head/scalp atraumatic Lymph Lymphatic: lymphedema moderate Resp normal respiratory effort Effort and Inspection: able to speak in complete sentences Cardio regular rate and regular rhythm Extremity General Extremity: edema bilateral lower extremity Details: severe Skin Wounds: wounds noted Wound Narrative: as in clinical panel Psych mental status grossly normal, thought process normal, cooperative and affect normal Debridement Note Debridement Note Wound debrided: Left lateral LE cluster Laterality: Left Type of Debridement: Excisional debridement Anesthesia Used: 4% Lidocaine Solution Depth: Down to and including healthy tissue and in the subcutaneous layer Percentage of wound debrided: 100 Instrument Used: 5mm curette Tissue Removed: Yellow slough, devitalized tissue Severity: Fat Layer Exposed Amount of bleeding with debridement: Mild Bleeding Controlled with: Compression and gauze Patient tolerated procedure: Patient tolerated procedure well Post-Debridement Measurements and Additional Note: Post-Debridement Measurements/Treatment - Nurse 1 - General Ulcer Assessment Start: 01/14/23 10:12 Freq: Status: Active Protocol: ONDINA Activity Type Activity Date Activity User E-sign Co-sign Detail Recorded Client Recorded Date Recorded By Document 01/14/23 10:12 MW Desktop 01/14/23 10:25 MW Document 01/21/23 10:02 DL [id number] 01/21/23 10:12 DL Document 01/28/23 09:48 RB [id number] 01/28/23 10:01 RB Document 02/04/23 09:16 RB [id number] 02/04/23 09:26 RB 01/14/23 01/21/23 01/28/23 10:12 10:02 09:48 - Today's Visit Information Type of service Follow-up Visit Follow-up Visit Follow-up Visit (Physician/FIXER BOARDING ROOM (Physician/FIXER BOARDING ROOM (Physician/FIXER BOARDING ROOM ) ) ) Arrival Mode Ambulatory, Ambulatory, Ambulatory, Walker Walker Walker Transfer Assistance None None None Accompanied by SELF Patient Identification Verified (Name & Yes Yes Yes ) Patient Requires Transmission-Based No No No Precautions Safety Precautions Fall Prevention Vital Signs Temperature (97.8 F-99.1 F) 97.0 F L 97 F L 97 F L Temperature Source Temporal Temporal Temporal Pulse Rate (60-100) 62 75 75 Pulse Location Monitor Monitor Monitor Respiratory Rate (12-18) 18 20 H 18 Respiratory rate source Observation Observation Observation Oxygen Delivery Method Room Air Blood Pressure (90/60-120/80) 139/85 H 116/63 122/71 H Blood Pressure Mean (mm Hg) 103 80 88 Source Monitor Monitor Monitor Position Sitting Semi-Fowlers Blood Pressure Location Right Arm Left Arm History Since Last Visit- (Skip if this is Patient's initial visit) Have you changed medications since your No No No last visit? Any new allergies or adverse reactions No No No Had a fall/change in ADL's that may No No No increase risk of falls Signs or symptoms of abuse and/or No No No neglect since last visit Have you been in the hospital since your No No No last visit? Has dressing in place as prescribed Yes Yes Yes Has compression in place as prescribed Yes Yes Yes Has offloadiing in place as prescribed N/A N/A No Experienced any changes in pain level or No No No management Left Footwear Regular Shoe Regular Shoe Right Footwear Regular Shoe Regular Shoe Pain Scale: 0-10 Numeric Is Patient Pain Free? Yes Yes Yes 02/04/23 09:16 - Today's Visit Information Type of service Follow-up Visit (Physician/FIXER BOARDING ROOM ) Arrival Mode Ambulatory Transfer Assistance None Accompanied by Patient Identification Verified (Name & Yes ) Patient Requires Transmission-Based No Precautions Safety Precautions Vital Signs Temperature (97.8 F-99.1 F) 97.7 F L Temperature Source Temporal Pulse Rate (60-100) 74 Pulse Location Monitor Respiratory Rate (12-18) 18 Respiratory rate source Observation Oxygen Delivery Method Blood Pressure (90/60-120/80) 125/70 H Blood Pressure Mean (mm Hg) 88 Source Monitor Position Semi-Fowlers Blood Pressure Location Left Arm History Since Last Visit- (Skip if this is Patient's initial visit) Have you changed medications since your No last visit? Any new allergies or adverse reactions No Had a fall/change in ADL's that may No increase risk of falls Signs or symptoms of abuse and/or No neglect since last visit Have you been in the hospital since your No last visit? Has dressing in place as prescribed Yes Has compression in place as prescribed Yes Has offloadiing in place as prescribed No Experienced any changes in pain level or No management Left Footwear Right Footwear Pain Scale: 0-10 Numeric Is Patient Pain Free? Yes WC - Nurse 1 - General Ulcer Measurement Start: 01/14/23 10:12 Freq: Status: Active Protocol: Activity Type Activity Date Activity User E-sign Co-sign Detail Recorded Client Recorded Date Recorded By Document 01/14/23 10:12 MW Desktop 01/14/23 10:25 MW Document 01/21/23 10:02 DL [id number] 01/21/23 10:12 DL Document 01/28/23 09:48 RB [id number] 01/28/23 10:01 RB Document 02/04/23 09:16 RB [id number] 02/04/23 09:26 RB 01/14/23 01/21/23 01/28/23 10:12 10:02 09:48 Wound Center Nurse 1 #19 Left Lateral LE cluster -Combined with other wound No No -Current Size (cm) - Length 1.1 1.6 1.4 -Current Size (cm) - Width 0.9 1.3 1.3 -Current Size (cm) - Depth 0.1 0.1 0.1 -Total Square Cm 0.99 2.08 1.82 -Photo Taken No No Yes -Epithelialization None Present -Tunneling No No -Undermining/Tunneling No No -Circular Undermining No No -Exudate Amt Small Medium Medium -Exudate Type Serosanguineous Serosanguineous Serosanguineous -Wound Margin Flat & Intact Distinct, Distinct, Outline Outline Attached Attached -Granulation Amt Large (67-100%) Large (67-100%) Medium (34-66%) -Granulation Quality [place] Hyper- [place] granulation,Red -Slough/Fibrin Yes Yes -Necrosis Amt Small (1-33%) Small (1-33%) Small (1-33%) -Necrotic Tissue Type Adherent Slough Adherent Slough Adherent Slough -Structure Exposed N/A N/A N/A -Texture (Marie-wound Skin Appearance) Assessed, Scarring Assessed, Localized Edema Localized Edema ,Scarring -Moisture (Marie-wound Skin Appearance) Assessed No Abnormality Assessed -Color (Marie-wound Skin Appearance) Assessed, Hemosiderin Assessed Hemosiderin Staining Staining,Rubor -Temperature (Marie-wound Skin No Abnormality No Abnormality No Abnormality Appearance) (Pt Warm) (Pt Warm) (Pt Warm) -Tenderness on Palpation (Marie-wound No No No Skin Appearance) -Ulcer Cleansing Rinsed/ Soap and Water Wound Cleanser Irrigated with Saline -Foul Odor after Cleansing No No No -Anesthetic Used 5% Lidocaine 5% Lidocaine 5% Lidocaine Gel Gel Gel #18 Left medial LE cluster -Combined with other wound No No -Current Size (cm) - Length 4.5 4.5 4.4 -Current Size (cm) - Width 8.0 8 8.7 -Current Size (cm) - Depth 0.1 0.1 0.1 -Total Square Cm 36.00 36.0 38.28 -Photo Taken No No Yes -Epithelialization None Present -Tunneling No No -Undermining/Tunneling No No -Circular Undermining No No -Exudate Amt Small Medium Medium -Exudate Type Serosanguineous Serosanguineous Serosanguineous -Wound Margin Flat & Intact Distinct, Distinct, Outline Outline Attached Attached -Granulation Amt Large (67-100%) Large (67-100%) Medium (34-66%) -Granulation Quality [place] Red [place] -Slough/Fibrin Yes Yes -Necrosis Amt Small (1-33%) Small (1-33%) Medium (34-66%) -Necrotic Tissue Type Adherent Slough Adherent Slough Adherent Slough -Structure Exposed N/A N/A N/A -Texture (Marie-wound Skin Appearance) Assessed, Scarring Assessed, Localized Edema Localized Edema ,Scarring -Moisture (Marie-wound Skin Appearance) Assessed No Abnormality Assessed -Color (Marie-wound Skin Appearance) No Abnormality Hemosiderin Assessed Staining -Temperature (Marie-wound Skin No Abnormality No Abnormality No Abnormality Appearance) (Pt Warm) (Pt Warm) (Pt Warm) -Tenderness on Palpation (Marie-wound No No No Skin Appearance) -Ulcer Cleansing Rinsed/ Soap and Water Wound Cleanser Irrigated with Saline -Foul Odor after Cleansing No No No -Anesthetic Used 5% Lidocaine 5% Lidocaine 5% Lidocaine Gel Gel Gel Lower Limb Edema Present Yes Yes Right Calf (cm) 45.0 43.6 Right Ankle (cm) 29.0 29.4 Left Calf (cm) 44.5 44.5 43.5 Left Ankle (cm) 29.0 29.5 31 02/04/23 09:16 Wound Center Nurse 1 #19 Left Lateral LE cluster -Combined with other wound No -Current Size (cm) - Length 1 -Current Size (cm) - Width 1.1 -Current Size (cm) - Depth 0.1 -Total Square Cm 1.1 -Photo Taken Yes -Epithelialization -Tunneling No -Undermining/Tunneling No -Circular Undermining No -Exudate Amt Medium -Exudate Type Serosanguineous -Wound Margin Distinct, Outline Attached -Granulation Amt Medium (34-66%) -Granulation Quality [place] -Slough/Fibrin Yes -Necrosis Amt Medium (34-66%) -Necrotic Tissue Type Adherent Slough -Structure Exposed N/A -Texture (Marie-wound Skin Appearance) Assessed -Moisture (Marie-wound Skin Appearance) Assessed -Color (Marie-wound Skin Appearance) Assessed -Temperature (Marie-wound Skin No Abnormality Appearance) (Pt Warm) -Tenderness on Palpation (Marie-wound No Skin Appearance) -Ulcer Cleansing Wound Cleanser -Foul Odor after Cleansing No -Anesthetic Used 5% Lidocaine Gel #18 Left medial LE cluster -Combined with other wound No -Current Size (cm) - Length 5 -Current Size (cm) - Width 9 -Current Size (cm) - Depth 0.1 -Total Square Cm 45 -Photo Taken -Epithelialization -Tunneling No -Undermining/Tunneling No -Circular Undermining No -Exudate Amt Medium -Exudate Type Serosanguineous -Wound Margin Distinct, Outline Attached -Granulation Amt Medium (34-66%) -Granulation Quality [place] -Slough/Fibrin Yes -Necrosis Amt Medium (34-66%) -Necrotic Tissue Type Adherent Slough -Structure Exposed N/A -Texture (Marie-wound Skin Appearance) Assessed -Moisture (Marie-wound Skin Appearance) Assessed -Color (Marie-wound Skin Appearance) Assessed -Temperature (Marie-wound Skin No Abnormality Appearance) (Pt Warm) -Tenderness on Palpation (Marie-wound No Skin Appearance) -Ulcer Cleansing Wound Cleanser -Foul Odor after Cleansing No -Anesthetic Used 5% Lidocaine Gel Lower Limb Edema Present Yes Right Calf (cm) 47 Right Ankle (cm) 29 Left Calf (cm) 46 Left Ankle (cm) 29 WC - Nurse 2 - General Ulcer CM Notes Start: 01/14/23 10:12 Freq: Status: Active Protocol: Activity Type Activity Date Activity User E-sign Co-sign Detail Recorded Client Recorded Date Recorded By Document 01/14/23 10:25 MW Desktop 01/14/23 10:42 MW Document 01/21/23 10:26 MW [id number] 01/21/23 10:45 MW Edit Result 01/21/23 10:26 MW (1) [id number] 01/24/23 07:06 PL Document 01/28/23 10:14 MW [id number] 01/28/23 10:29 MW Document 02/04/23 09:43 MW Desktop 02/04/23 09:57 MW (1) #19 Left Lateral LE cluster - Debridement, SubQ, ea addt'l 20sq cm 2 => 3 or part thereof 01/14/23 01/21/23 01/28/23 10:25 10:26 10:14 Wound Center Nurse 2 #19 Left Lateral LE cluster -Time 10:25 10:28 10:14 -Correct Patient Yes Yes Yes -Correct Side, Site, Position Yes Yes Yes -Correct Procedure Yes Yes Yes -Procedure Performed Yes Yes Yes -Type of Procedure Debridement Debridement Debridement -Clinical Debridement Subcutaneous Subcutaneous Subcutaneous -Tissue Removed Subcutaneous Subcutaneous Subcutaneous -Post Debridement (cm) - Length 1.2 1.4 1.3 -Post Debridement (cm) - Width 0.8 1.4 1.3 -Post Debridement (cm) - Depth 0.1 0.1 0.1 -Total Square (Post) (cm) 0.96 1.96 1.69 -Area of Debridement (cm) - Length 1.2 1.4 1.3 -Area of Debridement (cm) - Width 0.8 1.4 1.3 -Total Square (Area) (cm) 0.96 1.96 1.69 -Tunneling No No No -Undermining/Tunneling No No No -Circular Undermining No No No -Wound/Ulcer Outcome Not Healed Not Healed Not Healed -Ulcer Cleansing Rinsed/ Rinsed/ Rinsed/ Irrigated with Irrigated with Irrigated with Saline Saline Saline -Foul Odor after Cleansing No No No -Bioengineered Tissue No No No -Bleeding Controlled with Pressure Pressure Pressure -Treatment Response Procedure Procedure Procedure Tolerated Well Tolerated Well Tolerated Well -Offloading No No No -Debridement - Subq, 1st 20sq cm Yes Yes Yes -Debridement, SubQ, ea addt'l 20sq cm 1 3 1 or part thereof #18 Left medial LE cluster -Time 10:26 10:30 10:14 -Correct Patient Yes Yes Yes -Correct Side, Site, Position Yes Yes Yes -Correct Procedure Yes Yes Yes -Procedure Performed Yes Yes Yes -Type of Procedure Debridement Debridement Debridement -Clinical Debridement Subcutaneous Subcutaneous Subcutaneous -Tissue Removed Subcutaneous Subcutaneous Subcutaneous -Post Debridement (cm) - Length 4.2 5.0 4.5 -Post Debridement (cm) - Width 7.5 8.0 7.8 -Post Debridement (cm) - Depth 0.2 0.2 0.2 -Total Square (Post) (cm) 31.50 40.00 35.10 -Area of Debridement (cm) - Length 4.2 5.0 4.5 -Area of Debridement (cm) - Width 7.5 8.0 7.8 -Total Square (Area) (cm) 31.50 40.00 35.10 -Tunneling No No No -Undermining/Tunneling No No No -Circular Undermining No No No -Wound/Ulcer Outcome Not Healed Not Healed Not Healed -Ulcer Cleansing Rinsed/ Rinsed/ Rinsed/ Irrigated with Irrigated with Irrigated with Saline Saline Saline -Foul Odor after Cleansing No No No -Bioengineered Tissue No No No -Bleeding Controlled with Pressure Pressure Pressure -Treatment Response Procedure Procedure Procedure Tolerated Well Tolerated Well Tolerated Well -Offloading No No No -Debridement - Subq, 1st 20sq cm No No No Pain Scale: 0-10 Numeric Is Patient Pain Free? Yes Yes Yes 02/04/23 09:43 Wound Center Nurse 2 #19 Left Lateral LE cluster -Time 09:44 -Correct Patient Yes -Correct Side, Site, Position Yes -Correct Procedure Yes -Procedure Performed Yes -Type of Procedure Debridement -Clinical Debridement Subcutaneous -Tissue Removed Subcutaneous -Post Debridement (cm) - Length 1.3 -Post Debridement (cm) - Width 1.1 -Post Debridement (cm) - Depth 0.1 -Total Square (Post) (cm) 1.43 -Area of Debridement (cm) - Length 1.3 -Area of Debridement (cm) - Width 1.1 -Total Square (Area) (cm) 1.43 -Tunneling No -Undermining/Tunneling No -Circular Undermining No -Wound/Ulcer Outcome Not Healed -Ulcer Cleansing Rinsed/ Irrigated with Saline -Foul Odor after Cleansing No -Bioengineered Tissue No -Bleeding Controlled with Pressure -Treatment Response Procedure Tolerated Well -Offloading No -Debridement - Subq, 1st 20sq cm Yes -Debridement, SubQ, ea addt'l 20sq cm or part thereof #18 Left medial LE cluster -Time 09:44 -Correct Patient Yes -Correct Side, Site, Position Yes -Correct Procedure Yes -Procedure Performed Yes -Type of Procedure Debridement -Clinical Debridement Subcutaneous -Tissue Removed Subcutaneous -Post Debridement (cm) - Length 5.0 -Post Debridement (cm) - Width 7.9 -Post Debridement (cm) - Depth 0.2 -Total Square (Post) (cm) 39.50 -Area of Debridement (cm) - Length 5.0 -Area of Debridement (cm) - Width 7.9 -Total Square (Area) (cm) 39.50 -Tunneling No -Undermining/Tunneling No -Circular Undermining No -Wound/Ulcer Outcome Not Healed -Ulcer Cleansing Rinsed/ Irrigated with Saline -Foul Odor after Cleansing No -Bioengineered Tissue No -Bleeding Controlled with Pressure -Treatment Response Procedure Tolerated Well -Offloading No -Debridement - Subq, 1st 20sq cm No Pain Scale: 0-10 Numeric Is Patient Pain Free? Yes WC - Nurse 3 - General Ulcer D/C NN Start: 01/14/23 10:12 Freq: Status: Active Protocol: Activity Type Activity Date Activity User E-sign Co-sign Detail Recorded Client Recorded Date Recorded By Document 01/14/23 10:49 MW Desktop 01/14/23 10:51 MW Document 01/21/23 10:54 DL [id number] 01/21/23 10:56 DL Document 02/04/23 10:23 RB [id number] 02/04/23 10:25 RB 01/14/23 01/21/23 02/04/23 10:49 10:54 10:23 Wound Care Center Nurse 3 #19 Left Lateral LE cluster -Ulcer Cleansing Rinsed/ Rinsed/ Irrigated with Irrigated with Saline Saline -Foul Odor after Cleansing No No -Negative Pressure Wound Therapy N/A -Primary Dressing Applied Aquacel Extra Aquacel Extra -Other Dressing AQUACEL EXTRA -Primary Dressing Covered/Secured with Dry Gauze & Dry Gauze & Dry Gauze,Dry Roll Gauze, Roll Gauze, Gauze & Roll Secured with Secured with Gauze,Secured Tape Tape with Tape -Other Covering ABD PAD ABD -Aquacel Extra 1 1 #18 Left medial LE cluster -Ulcer Cleansing Rinsed/ Rinsed/ Irrigated with Irrigated with Saline Saline -Foul Odor after Cleansing No No -Negative Pressure Wound Therapy N/A -Other Dressing AQUACEL EXTRA aquacel ex AQUACEL EXTRA, ABD -Primary Dressing Covered/Secured with Dry Gauze & Dry Gauze & Dry Gauze & Roll Gauze, Roll Gauze, Roll Gauze, Secured with Secured with Secured with Tape Tape Tape -Other Covering ABD PAD Right -Lotion applied to leg before No compression wrap -Compression Wrap Marcio Wrap -Tubular Bandage Single Layer Single Layer -Size of Tubigrip Used Size E Size E -Size E ($) 1 1 Left -Lotion applied to leg before No compression wrap -Compression Wrap Marcio Wrap -Tubular Bandage Single Layer Single Layer -Size of Tubigrip Used Size E Size E -Size E ($) 1 1 Treatment Response Procedure Procedure Procedure Tolerated Well Tolerated Well Tolerated Well Pain Scale: 0-10 Numeric Is Patient Pain Free? Yes Yes Yes Teaching: Wound Center Dressing Your Wound -Person Taught Patient -Teaching Method Discussion, Demonstration -Response to teaching Verbalize understanding WC - Visit Discharge Discharge Condition Stable Stable Stable Ambulatory Status Ambulatory, Ambulatory Ambulatory, Walker Walker Transportation Private Auto Private Auto Accompanied by SHANAE Medication Reconcilliation completed & No No provided to patient/care provider Clinical Summary of Care Provided Yes Yes Facility Type Home Health Orders Sent Yes Additional Wound Wound debrided: left medial LE cluster Laterality: Left Type of Debridement: Excisional debridement Anesthesia Used: 4% Lidocaine Solution and 5% Lidocaine Gel Depth: Down to and including healthy tissue and in the subcutaneous layer Percentage of wound debrided: 100 Instrument Used: 5mm curette Tissue Removed: yellow slough, devitalized tissue Severity: Fat Layer Exposed Amount of bleeding with debridement: Mild Bleeding Controlled with: Compression and gauze Patient tolerated procedure: Patient tolerated procedure well Assessment/Plan Assessment/Plan (1) Ulcer of right lower extremity with fat layer exposed: CODE(S): L97.912 - Non-pressure chronic ulcer of unspecified part of right lower leg with fat layer exposed (2) Ulcer of left lower extremity with fat layer exposed: CODE(S): L97.922 - Non-pressure chronic ulcer of unspecified part of left lower leg with fat layer exposed (3) Venous insufficiency: CODE(S): I87.2 - Venous insufficiency (chronic) (peripheral) (4) Edema: CODE(S): R60.9 - Edema, unspecified QUALIFIERS: Edema type: unspecified Qualified Code(s): R60.9 - Edema, unspecified (5) History of CVA (cerebrovascular accident): CODE(S): Z86.73 - Personal history of transient ischemic attack (TIA), and cerebral infarction without residual deficits (6) Venous ulcer of left lower extremity with varicose veins: CODE(S): I83.029 - Varicose veins of left lower extremity with ulcer of unspecified site (7) Venous ulcer of both lower extremities with varicose veins: CODE(S): I83.019 - Varicose veins of right lower extremity with ulcer of unspecified site; I83.029 - Varicose veins of left lower extremity with ulcer of unspecified site (8) Venous ulcers of both lower extremities: CODE(S): I87.2 - Venous insufficiency (chronic) (peripheral) (9) Lymphedema: CODE(S): I89.0 - Lymphedema, not elsewhere classified PLAN: Plan Debridement performed today in clinic as annotated above. At home wound-care instructions: Apply Aquacel Extra to ulcers, Cover with ABD and wrap with gauze and use compression with tubigrips and continue lasix 2 tabs BID. Off-loading: The patient was instructed to avoid pressure and friction on the affected areas. Reposition every 2 hours at minimum. Avoid prolonged standing and/or dangling of legs. When seated, feet should be elevated at chest level. Frequent ambulation is encouraged. Encouraged lymphedema pump use. Diet: Patient encouraged to increase protein intake while taking caution to avoid high carbohydrate and/or sugar intake. Labs/cultures/imaging: Culture taken today due to change in drainage color. Will treat based on results. Follow-up: Return in 1 week for wound care follow up. Return sooner or report to the emergency room should symptoms worsen, or new symptoms arise. Note: [employer] speech recognition safety officer software was used to create portions of this document. Sound-alike and misspelled words, as well as other safety officer errors may be contained in the documentation.
== END 2023-02-06 23:59 | disposition home or self-care (01) ==
LOC: WC 09:30
PROVIDERS: PCP Family Medicine; Visit Provider Family Medicine
DX: I87.2 Venous insufficiency (chronic) (peripheral) (principal); L97.912 Non-pressure chronic ulcer of unspecified part of right lower leg with fat layer exposed; L97.922 Non-pressure chronic ulcer of unspecified part of left lower leg with fat layer exposed; B96.5 Pseudomonas (aeruginosa) (mallei) (pseudomallei) as the cause of diseases classified elsewhere; R60.9 Edema, unspecified; M79.10 Myalgia, unspecified site; I89.0 Lymphedema, not elsewhere classified; M79.605 Pain in left leg; I83.93 Asymptomatic varicose veins of bilateral lower extremities; Z86.73 Personal history of transient ischemic attack (TIA), and cerebral infarction without residual deficits
CPT/HCPCS: 11042; 11045; 87070; 87075; 87077; 87186; 87205

== ENCOUNTER 2023-02-25 09:30 | Outpatient (RCR) | payer MEDICARE, OTHER, SELFPAY ==
[2023-02-07 00:20] VITALS: BP 125/70; PULSE 74; RESP 18; TEMP 36.5
[2023-02-11 09:54] VITALS: BP 152/84; PULSE 74; RESP 18; TEMP 36
--- NOTE | 2023-02-11 13:53 | PCM.WC.PN ---
History of Present Illness Date of Service: 02/11/23 Chief Complaint: venous ulcers of bilateral lower extremities History of Wound: Mauricio is a 67 yo gentleman who is here today for evaluation of ulcers to to his bilateral lower legs. He has been treated multiple times in the past at the wound healing center for similar ulcers. The left LE ulcer started after he developed increased swelling and blisters of left leg in October and the right leg started sometime at the end of October. He was seen at PCP's office a culture was taken and it was resistant to several antibiotics. He was treated initially with Levaquin but had myalgias and then was treated with doxycycline which he finished 2 days ago. He denies improvement and is having swelling to his left calf and thigh. He has been having swelling to both lower extremities for many years and it has worsened over the last few months. He has not been compliant with compression. He has had increased pain especially in the left leg. He has clear yellow drainage and redness without odor or warmth. He is anti-coagulated on coumadin. He has been washing with Dial soap and witch ifrah. He had been using Collagen at times and using Calcium Alginate and covering with ABD pads during October. He was treated with 3M compression and Aquacel Ag. He was referred to the wound center for ongoing treatment. His ulcers have moderate to heavy drainage. He was recently hospitalized for cellulitis and edema for the last 10 days. He was in the hospital from 11/30/22 until 12/09/22 for treatment of cellulitis and edema. He underwent treatment with Vancomycin and IV lasix and compression. Discharged on 12/09/22 and is [facility] in [facility] He returned to his assisted living apartment on Tuesday12/21/22. Subjective Subjective He tolerated treatment this week with Aquacel Extra and ABDs and tubigrips. His ulcers are slightly improved this week but edema is worse. Wound culture was positive for Staph and Pseudomonas. He is on day 6 of Levaquin treatment. Notes increase in pain in his left leg from antibiotic. Denies fever, chills, increased pain or increased drainage. Objective Data Objective Data Vital Signs: Vital Signs Temp Pulse Resp BP 96.8 F L 74 18 152/84 H 02/11/23 09:54 02/11/23 09:54 02/11/23 09:54 02/11/23 09:54 Physical Exam Const alert, oriented x3 and no apparent distress General Appearance: cooperative and comfortable HEENT normocephalic and head/scalp atraumatic Lymph Lymphatic: lymphedema moderate Resp normal respiratory effort Effort and Inspection: able to speak in complete sentences Cardio regular rate and regular rhythm Extremity General Extremity: edema bilateral lower extremity Details: severe Skin Wounds: wounds noted Wound Narrative: as in clinical panel Psych mental status grossly normal, thought process normal, cooperative and affect normal Debridement Note Debridement Note Wound debrided: Left lateral LE cluster Laterality: Left Type of Debridement: Excisional debridement Anesthesia Used: 4% Lidocaine Solution Depth: Down to and including healthy tissue and in the subcutaneous layer Percentage of wound debrided: 100 Instrument Used: 5mm curette Tissue Removed: Yellow slough, devitalized tissue Severity: Fat Layer Exposed Amount of bleeding with debridement: Mild Bleeding Controlled with: Compression and gauze Patient tolerated procedure: Patient tolerated procedure well Post-Debridement Measurements and Additional Note: Post-Debridement Measurements/Treatment - Nurse 1 - General Ulcer Assessment Start: 02/11/23 09:54 Freq: Status: Active Protocol: ONDINA Activity Type Activity Date Activity User E-sign Co-sign Detail Recorded Client Recorded Date Recorded By Document 02/11/23 09:54 KARTHIK [id number] 02/11/23 10:04 KARTHIK 02/11/23 09:54 - Today's Visit Information Type of service Follow-up Visit (Physician/[employer] ) Arrival Mode Ambulatory, Wheelchair Patient Identification Verified (Name & Yes ) Patient Requires Transmission-Based No Precautions Vital Signs Temperature (97.8 F-99.1 F) 96.8 F L Temperature Source Temporal Pulse Rate (60-100) 74 Pulse Location Monitor Respiratory Rate (12-18) 18 Respiratory rate source Observation Blood Pressure (90/60-120/80) 152/84 H Blood Pressure Mean (mm Hg) 106 Source Monitor Position Semi-Fowlers Blood Pressure Location Right Arm History Since Last Visit- (Skip if this is Patient's initial visit) Have you changed medications since your No last visit? Any new allergies or adverse reactions No Had a fall/change in ADL's that may No increase risk of falls Signs or symptoms of abuse and/or No neglect since last visit Have you been in the hospital since your No last visit? Has dressing in place as prescribed Yes Has compression in place as prescribed Yes Has offloadiing in place as prescribed N/A Experienced any changes in pain level or No management Left Footwear Regular Shoe Right Footwear Regular Shoe Pain Scale: 0-10 Numeric Is Patient Pain Free? Yes WC - Nurse 1 - General Ulcer Measurement Start: 02/11/23 09:54 Freq: Status: Active Protocol: Activity Type Activity Date Activity User E-sign Co-sign Detail Recorded Client Recorded Date Recorded By Document 02/11/23 09:54 KARTHIK [id number] 02/11/23 10:04 KARTHIK 02/11/23 09:54 Wound Center Nurse 1 #19 Left Lateral LE cluster -Combined with other wound No -Current Size (cm) - Length 1.0 -Current Size (cm) - Width 1.0 -Current Size (cm) - Depth 0.1 -Total Square Cm 1.00 -Photo Taken Yes -Epithelialization Medium 34-66% -Tunneling No -Undermining/Tunneling No -Circular Undermining No -Exudate Amt Small -Exudate Type Serosanguineous -Wound Margin Flat & Intact -Granulation Amt Large (67-100%) -Granulation Quality Red -Slough/Fibrin Yes -Necrosis Amt Small (1-33%) -Necrotic Tissue Type Adherent Slough -Structure Exposed N/A -Texture (Marie-wound Skin Appearance) Assessed, Localized Edema -Moisture (Marie-wound Skin Appearance) Assessed,Dry/ Scaly -Color (Marie-wound Skin Appearance) Not Assessed -Temperature (Marie-wound Skin No Abnormality Appearance) (Pt Warm) -Tenderness on Palpation (Marie-wound No Skin Appearance) -Ulcer Cleansing Wound Cleanser -Foul Odor after Cleansing No -Anesthetic Used 5% Lidocaine Gel #18 Left medial LE cluster -Combined with other wound No -Current Size (cm) - Length 6.5 -Current Size (cm) - Width 9.4 -Current Size (cm) - Depth 0.2 -Total Square Cm 61.10 -Photo Taken Yes -Epithelialization Small 1-33% -Tunneling No -Undermining/Tunneling No -Circular Undermining No -Exudate Amt Large -Exudate Type Serosanguineous -Wound Margin Flat & Intact -Granulation Amt Large (67-100%) -Granulation Quality Red -Slough/Fibrin Yes -Necrosis Amt Small (1-33%) -Necrotic Tissue Type Adherent Slough -Structure Exposed N/A -Texture (Marie-wound Skin Appearance) Assessed, Localized Edema -Moisture (Marie-wound Skin Appearance) Assessed,Dry/ Scaly -Color (Marie-wound Skin Appearance) Assessed, Erythema -Temperature (Marie-wound Skin No Abnormality Appearance) (Pt Warm) -Tenderness on Palpation (Marie-wound No Skin Appearance) -Ulcer Cleansing Wound Cleanser -Foul Odor after Cleansing No -Anesthetic Used 5% Lidocaine Gel Lower Limb Edema Present Yes Left Calf (cm) 42.3 Left Ankle (cm) 29.8 WC - Nurse 2 - General Ulcer CM Notes Start: 02/11/23 09:54 Freq: Status: Active Protocol: Activity Type Activity Date Activity User E-sign Co-sign Detail Recorded Client Recorded Date Recorded By Document 02/11/23 10:05 MW [id number] 02/11/23 10:24 MW 02/11/23 10:05 Wound Center Nurse 2 #19 Left Lateral LE cluster -Time 10:06 -Correct Patient Yes -Correct Side, Site, Position Yes -Correct Procedure Yes -Procedure Performed Yes -Type of Procedure Debridement -Clinical Debridement Subcutaneous -Tissue Removed Subcutaneous -Post Debridement (cm) - Length 1.2 -Post Debridement (cm) - Width 1.2 -Post Debridement (cm) - Depth 0.1 -Total Square (Post) (cm) 1.44 -Area of Debridement (cm) - Length 1.2 -Area of Debridement (cm) - Width 1.2 -Total Square (Area) (cm) 1.44 -Tunneling No -Undermining/Tunneling No -Circular Undermining No -Wound/Ulcer Outcome Not Healed -Ulcer Cleansing Rinsed/ Irrigated with Saline -Foul Odor after Cleansing No -Bioengineered Tissue No -Bleeding Controlled with Pressure -Treatment Response Procedure Tolerated Well -Offloading No -Debridement - Subq, 1st 20sq cm Yes -Debridement, SubQ, ea addt'l 20sq cm 2 or part thereof #18 Left medial LE cluster -Time 10:07 -Correct Patient Yes -Correct Side, Site, Position Yes -Correct Procedure Yes -Procedure Performed Yes -Type of Procedure Debridement -Clinical Debridement Subcutaneous -Tissue Removed Subcutaneous -Post Debridement (cm) - Length 5.5 -Post Debridement (cm) - Width 8.2 -Post Debridement (cm) - Depth 0.3 -Total Square (Post) (cm) 45.10 -Area of Debridement (cm) - Length 5.5 -Area of Debridement (cm) - Width 8.2 -Total Square (Area) (cm) 45.10 -Tunneling No -Undermining/Tunneling No -Circular Undermining No -Wound/Ulcer Outcome Not Healed -Ulcer Cleansing Rinsed/ Irrigated with Saline -Foul Odor after Cleansing No -Bioengineered Tissue No -Bleeding Controlled with Pressure -Treatment Response Procedure Tolerated Well -Offloading No -Debridement - Subq, 1st 20sq cm No Pain Scale: 0-10 Numeric Is Patient Pain Free? Yes - Nurse 3 - General Ulcer D/C NN Start: 02/11/23 09:54 Freq: Status: Active Protocol: Activity Type Activity Date Activity User E-sign Co-sign Detail Recorded Client Recorded Date Recorded By Document 02/11/23 10:43 ARPIT [id number] 02/11/23 10:45 ARPIT 02/11/23 10:43 Wound Care Center Nurse 3 #19 Left Lateral LE cluster -Ulcer Cleansing Rinsed/ Irrigated with Saline -Primary Dressing Applied Aquacel Extra -Other Dressing abd, kerlix -Primary Dressing Covered/Secured with Secured with Tape -Aquacel Extra 1 #18 Left medial LE cluster -Ulcer Cleansing Rinsed/ Irrigated with Saline -Other Dressing aquacel extra, abd -Primary Dressing Covered/Secured with Dry Gauze & Roll Gauze, Secured with Tape Right -Tubular Bandage Double Layer -Size of Tubigrip Used Size E -Size E ($) 2 Left -Tubular Bandage Double Layer -Size of Tubigrip Used Size E -Size E ($) 2 Treatment Response Procedure Tolerated Well Pain Scale: 0-10 Numeric Is Patient Pain Free? Yes - Visit Discharge Discharge Condition Stable Ambulatory Status Ambulatory, Walker Transportation Private Auto Medication Reconcilliation completed & No provided to patient/care provider Clinical Summary of Care Provided Yes Additional Wound Wound debrided: left medial LE cluster Laterality: Left Type of Debridement: Excisional debridement Anesthesia Used: 4% Lidocaine Solution and 5% Lidocaine Gel Depth: Down to and including healthy tissue and in the subcutaneous layer Percentage of wound debrided: 100 Instrument Used: 5mm curette Tissue Removed: yellow slough, devitalized tissue Severity: Fat Layer Exposed Amount of bleeding with debridement: Mild Bleeding Controlled with: Compression and gauze Patient tolerated procedure: Patient tolerated procedure well Assessment/Plan Assessment/Plan (1) Ulcer of right lower extremity with fat layer exposed: CODE(S): L97.912 - Non-pressure chronic ulcer of unspecified part of right lower leg with fat layer exposed (2) Ulcer of left lower extremity with fat layer exposed: CODE(S): L97.922 - Non-pressure chronic ulcer of unspecified part of left lower leg with fat layer exposed (3) Venous insufficiency: CODE(S): I87.2 - Venous insufficiency (chronic) (peripheral) (4) Edema: CODE(S): R60.9 - Edema, unspecified QUALIFIERS: Edema type: unspecified Qualified Code(s): R60.9 - Edema, unspecified (5) History of CVA (cerebrovascular accident): CODE(S): Z86.73 - Personal history of transient ischemic attack (TIA), and cerebral infarction without residual deficits (6) Venous ulcer of left lower extremity with varicose veins: CODE(S): I83.029 - Varicose veins of left lower extremity with ulcer of unspecified site (7) Venous ulcer of both lower extremities with varicose veins: CODE(S): I83.019 - Varicose veins of right lower extremity with ulcer of unspecified site; I83.029 - Varicose veins of left lower extremity with ulcer of unspecified site (8) Venous ulcers of both lower extremities: CODE(S): I87.2 - Venous insufficiency (chronic) (peripheral) (9) Lymphedema: CODE(S): I89.0 - Lymphedema, not elsewhere classified PLAN: Plan Debridement performed today in clinic as annotated above. At home wound-care instructions: Apply Aquacel Extra to ulcers, Cover with ABD and wrap with gauze and use compression with tubigrips and continue lasix 2 tabs BID. Off-loading: The patient was instructed to avoid pressure and friction on the affected areas. Reposition every 2 hours at minimum. Avoid prolonged standing and/or dangling of legs. When seated, feet should be elevated at chest level. Frequent ambulation is encouraged. Encouraged lymphedema pump use. Diet: Patient encouraged to increase protein intake while taking caution to avoid high carbohydrate and/or sugar intake. Labs/cultures/imaging: Culture positive for Pseudomonas and Staph. On Levaquin. Follow-up: Return in 1 week for wound care follow up. Return sooner or report to the emergency room should symptoms worsen, or new symptoms arise. Note: [employer] speech recognition director supplier quality software was used to create portions of this document. Sound-alike and misspelled words, as well as other director supplier quality errors may be contained in the documentation.
[2023-02-18 10:16] VITALS: BP 123/52; PULSE 70; RESP 22; TEMP 36
--- NOTE | 2023-02-18 13:23 | PN.PCM_ITS ---
History of Present Illness Date of Service: 02/18/23 Chief Complaint: venous ulcers of bilateral lower extremities History of Wound: Mauricio is a 67 yo gentleman who is here today for evaluation of ulcers to to his bilateral lower legs. He has been treated multiple times in the past at the wound healing center for similar ulcers. The left LE ulcer started after he developed increased swelling and blisters of left leg in October and the right leg started sometime at the end of October. He was seen at PCP's office a culture was taken and it was resistant to several antibiotics. He was treated initially with Levaquin but had myalgias and then was treated with doxycycline which he finished 2 days ago. He denies improvement and is having swelling to his left calf and thigh. He has been having swelling to both lower extremities for many years and it has worsened over the last few months. He has not been compliant with compression. He has had increased pain especially in the left leg. He has clear yellow drainage and redness without odor or warmth. He is anti- coagulated on coumadin. He has been washing with Dial soap and witch ifrah. He had been using Collagen at times and using Calcium Alginate and covering with ABD pads during October. He was treated with 3M compression and Aquacel Ag. He was referred to the wound center for ongoing treatment. His ulcers have moderate to heavy drainage. He was recently hospitalized for cellulitis and edema for the last 10 days. He was in the hospital from 11/30/22 until 12/09/22 for treatment of cellulitis and edema. He underwent treatment with Vancomycin and IV lasix and compression. Discharged on 12/09/22 and is currently in the Skilled [facility] of [facility]. He returned to his assisted living apartment on Tuesday12/21/22. Subjective Subjective He tolerated treatment this week with Aquacel Extra and ABDs and tubigrips. His ulcers are slightly improved this week but edema is worse. Wound culture was positive for Staph and Pseudomonas. He completed Levaquin treatment. Notes increase in pain in his left leg from antibiotic. Denies fever, chills, increased pain or increased drainage. Objective Data Objective Data Vital Signs: Vital Signs Temp Pulse Resp BP 96.8 F L 70 22 H 123/52 H 02/18/23 10:16 02/18/23 10:16 02/18/23 10:16 02/18/23 10:16 Physical Exam Const alert, oriented x3 and no apparent distress General Appearance: cooperative and comfortable HEENT normocephalic and head/scalp atraumatic Lymph Lymphatic: lymphedema moderate Resp normal respiratory effort Effort and Inspection: able to speak in complete sentences Cardio regular rate and regular rhythm Extremity General Extremity: edema bilateral lower extremity Details: severe Skin Wounds: wounds noted Wound Narrative: as in clinical panel Psych mental status grossly normal, thought process normal, cooperative and affect normal Debridement Note Debridement Note Wound debrided: Left lateral LE cluster Laterality: Left Type of Debridement: Excisional debridement Anesthesia Used: 4% Lidocaine Solution Depth: Down to and including healthy tissue and in the subcutaneous layer Percentage of wound debrided: 100 Instrument Used: 5mm curette Tissue Removed: Yellow slough, devitalized tissue Severity: Fat Layer Exposed Amount of bleeding with debridement: Mild Bleeding Controlled with: Compression and gauze Patient tolerated procedure: Patient tolerated procedure well Post-Debridement Measurements and Additional Note: Post-Debridement Measurements/Treatment DEBBIE - Nurse 1 - General Ulcer Assessment Start: 02/11/23 09:54 Freq: Status: Active Protocol: ONDINA Activity Type Activity Date Activity User E-sign Co-sign Detail Recorded Client Recorded Date Recorded By Document 02/11/23 09:54 [id number] 02/11/23 10:04 Document 02/18/23 10:16 DL [id number] 02/18/23 10:23 DL 02/11/23 02/18/23 09:54 10:16 - Today's Visit Information Type of service Follow-up Visit Follow-up Visit (Physician/PROJECT CONTROL OFFICER (Physician/PROJECT CONTROL OFFICER ) ) Arrival Mode Ambulatory, Ambulatory, Wheelchair Walker Transfer Assistance None Patient Identification Verified (Name & Yes Yes ) Patient Requires Transmission-Based No No Precautions Vital Signs Temperature (97.8 F-99.1 F) 96.8 F L 96.8 F L Temperature Source Temporal Temporal Pulse Rate (60-100) 74 70 Pulse Location Monitor Monitor Respiratory Rate (12-18) 18 22 H Respiratory rate source Observation Observation Blood Pressure (90/60-120/80) 152/84 H 123/52 H Blood Pressure Mean (mm Hg) 106 75 Source Monitor Monitor Position Semi-Fowlers Blood Pressure Location Right Arm History Since Last Visit- (Skip if this is Patient's initial visit) Have you changed medications since your No No last visit? Any new allergies or adverse reactions No No Had a fall/change in ADL's that may No No increase risk of falls Signs or symptoms of abuse and/or No No neglect since last visit Have you been in the hospital since your No No last visit? Has dressing in place as prescribed Yes Yes Has compression in place as prescribed Yes Yes Has offloadiing in place as prescribed N/A N/A Experienced any changes in pain level or No No management Left Footwear Regular Shoe Right Footwear Regular Shoe Pain Scale: 0-10 Numeric Is Patient Pain Free? Yes Yes WC - Nurse 1 - General Ulcer Measurement Start: 02/11/23 09:54 Freq: Status: Active Protocol: Activity Type Activity Date Activity User E-sign Co-sign Detail Recorded Client Recorded Date Recorded By Document 02/11/23 09:54 [id number] 02/11/23 10:04 JF Document 02/18/23 10:16 DL [id number] 02/18/23 10:23 DL 02/11/23 02/18/23 09:54 10:16 Wound Center Nurse 1 #19 Left Lateral LE cluster -Combined with other wound No -Current Size (cm) - Length 1.0 1.2 -Current Size (cm) - Width 1.0 0.8 -Current Size (cm) - Depth 0.1 0.2 -Total Square Cm 1.00 0.96 -Photo Taken Yes No -Epithelialization Medium 34-66% -Tunneling No -Undermining/Tunneling No -Circular Undermining No -Exudate Amt Small Small -Exudate Type Serosanguineous Serosanguineous -Wound Margin Flat & Intact Distinct, Outline Attached -Granulation Amt Large (67-100%) Large (67-100%) -Granulation Quality Red Red -Slough/Fibrin Yes -Necrosis Amt Small (1-33%) Small (1-33%) -Necrotic Tissue Type Adherent Slough Adherent Slough -Structure Exposed N/A N/A -Texture (Marie-wound Skin Appearance) Assessed, Scarring Localized Edema -Moisture (Marie-wound Skin Appearance) Assessed,Dry/ No Abnormality Scaly -Color (Marie-wound Skin Appearance) Not Assessed Hemosiderin Staining -Temperature (Marie-wound Skin No Abnormality No Abnormality Appearance) (Pt Warm) (Pt Warm) -Tenderness on Palpation (Marie-wound No No Skin Appearance) -Ulcer Cleansing Wound Cleanser Soap and Water -Foul Odor after Cleansing No No -Anesthetic Used 5% Lidocaine 5% Lidocaine Gel Gel #18 Left medial LE cluster -Combined with other wound No -Current Size (cm) - Length 6.5 6.8 -Current Size (cm) - Width 9.4 9 -Current Size (cm) - Depth 0.2 0.3 -Total Square Cm 61.10 61.2 -Photo Taken Yes No -Epithelialization Small 1-33% -Tunneling No -Undermining/Tunneling No -Circular Undermining No -Exudate Amt Large Large -Exudate Type Serosanguineous Serosanguineous -Wound Margin Flat & Intact Distinct, Outline Attached -Granulation Amt Large (67-100%) Large (67-100%) -Granulation Quality Red Red -Slough/Fibrin Yes -Necrosis Amt Small (1-33%) Small (1-33%) -Necrotic Tissue Type Adherent Slough Adherent Slough -Structure Exposed N/A N/A -Texture (Marie-wound Skin Appearance) Assessed, Scarring Localized Edema -Moisture (Marie-wound Skin Appearance) Assessed,Dry/ No Abnormality Scaly -Color (Marie-wound Skin Appearance) Assessed, Hemosiderin Erythema Staining -Temperature (Marie-wound Skin No Abnormality No Abnormality Appearance) (Pt Warm) (Pt Warm) -Tenderness on Palpation (Marie-wound No No Skin Appearance) -Ulcer Cleansing Wound Cleanser Soap and Water -Foul Odor after Cleansing No No -Anesthetic Used 5% Lidocaine 5% Lidocaine Gel Gel Lower Limb Edema Present Yes Right Calf (cm) 44 Right Ankle (cm) 28.2 Left Calf (cm) 42.3 42 Left Ankle (cm) 29.8 29.5 WC - Nurse 2 - General Ulcer CM Notes Start: 02/11/23 09:54 Freq: Status: Active Protocol: Activity Type Activity Date Activity User E-sign Co-sign Detail Recorded Client Recorded Date Recorded By Document 02/11/23 10:05 MW [id number] 02/11/23 10:24 MW Document 02/18/23 11:00 MW [id number] 02/18/23 11:21 MW 02/11/23 02/18/23 10:05 11:00 Wound Center Nurse 2 #19 Left Lateral LE cluster -Time 10:06 11:00 -Correct Patient Yes Yes -Correct Side, Site, Position Yes Yes -Correct Procedure Yes Yes -Procedure Performed Yes Yes -Type of Procedure Debridement Debridement -Clinical Debridement Subcutaneous Subcutaneous -Tissue Removed Subcutaneous Subcutaneous -Post Debridement (cm) - Length 1.2 1.2 -Post Debridement (cm) - Width 1.2 1.0 -Post Debridement (cm) - Depth 0.1 0.1 -Total Square (Post) (cm) 1.44 1.20 -Area of Debridement (cm) - Length 1.2 1.2 -Area of Debridement (cm) - Width 1.2 1.0 -Total Square (Area) (cm) 1.44 1.20 -Tunneling No No -Undermining/Tunneling No No -Circular Undermining No No -Wound/Ulcer Outcome Not Healed Not Healed -Ulcer Cleansing Rinsed/ Rinsed/ Irrigated with Irrigated with Saline Saline -Foul Odor after Cleansing No No -Bioengineered Tissue No No -Bleeding Controlled with Pressure Pressure -Treatment Response Procedure Procedure Tolerated Well Tolerated Well -Offloading No No -Debridement - Subq, 1st 20sq cm Yes Yes -Debridement, SubQ, ea addt'l 20sq cm 2 2 or part thereof #18 Left medial LE cluster -Time 10:07 11:01 -Correct Patient Yes Yes -Correct Side, Site, Position Yes Yes -Correct Procedure Yes Yes -Procedure Performed Yes Yes -Type of Procedure Debridement Debridement -Clinical Debridement Subcutaneous Subcutaneous -Tissue Removed Subcutaneous Subcutaneous -Post Debridement (cm) - Length 5.5 5.9 -Post Debridement (cm) - Width 8.2 8.7 -Post Debridement (cm) - Depth 0.3 0.3 -Total Square (Post) (cm) 45.10 51.33 -Area of Debridement (cm) - Length 5.5 5.9 -Area of Debridement (cm) - Width 8.2 8.7 -Total Square (Area) (cm) 45.10 51.33 -Tunneling No No -Undermining/Tunneling No No -Circular Undermining No No -Wound/Ulcer Outcome Not Healed Not Healed -Ulcer Cleansing Rinsed/ Rinsed/ Irrigated with Irrigated with Saline Saline -Foul Odor after Cleansing No No -Bioengineered Tissue No No -Bleeding Controlled with Pressure Pressure -Treatment Response Procedure Procedure Tolerated Well Tolerated Well -Offloading No No -Debridement - Subq, 1st 20sq cm No No Pain Scale: 0-10 Numeric Is Patient Pain Free? Yes Yes - Nurse 3 - General Ulcer D/C NN Start: 02/11/23 09:54 Freq: Status: Active Protocol: Activity Type Activity Date Activity User E-sign Co-sign Detail Recorded Client Recorded Date Recorded By Document 02/11/23 10:43 RB [id number] 02/11/23 10:45 RB Document 02/18/23 11:40 RB [id number] 02/18/23 11:41 RB 02/11/23 02/18/23 10:43 11:40 Wound Care Center Nurse 3 #19 Left Lateral LE cluster -Ulcer Cleansing Rinsed/ Rinsed/ Irrigated with Irrigated with Saline Saline -Primary Dressing Applied Aquacel Extra Aquacel Extra -Other Dressing abd, kerlix abd -Primary Dressing Covered/Secured with Secured with Dry Gauze & Tape Roll Gauze, Secured with Tape -Aquacel Extra 1 1 #18 Left medial LE cluster -Ulcer Cleansing Rinsed/ Rinsed/ Irrigated with Irrigated with Saline Saline -Other Dressing aquacel extra, aquacel extra abd -Primary Dressing Covered/Secured with Dry Gauze & Dry Gauze & Roll Gauze, Roll Gauze, Secured with Secured with Tape Tape Right -Tubular Bandage Double Layer -Size of Tubigrip Used Size E -Size E ($) 2 Left -Tubular Bandage Double Layer Single Layer -Size of Tubigrip Used Size E Size E -Size E ($) 2 1 Treatment Response Procedure Procedure Tolerated Well Tolerated Well Pain Scale: 0-10 Numeric Is Patient Pain Free? Yes Yes - Visit Discharge Discharge Condition Stable Stable Ambulatory Status Ambulatory, Ambulatory Walker Transportation Private Auto Private Auto Medication Reconcilliation completed & No No provided to patient/care provider Clinical Summary of Care Provided Yes Yes Additional Wound Wound debrided: left medial LE cluster Laterality: Left Type of Debridement: Excisional debridement Anesthesia Used: 4% Lidocaine Solution and 5% Lidocaine Gel Depth: Down to and including healthy tissue and in the subcutaneous layer Percentage of wound debrided: 100 Instrument Used: 5mm curette Tissue Removed: yellow slough, devitalized tissue Severity: Fat Layer Exposed Amount of bleeding with debridement: Mild Bleeding Controlled with: Compression and gauze Patient tolerated procedure: Patient tolerated procedure well Assessment/Plan Assessment/Plan (1) Ulcer of right lower extremity with fat layer exposed: CODE(S): L97.912 - Non-pressure chronic ulcer of unspecified part of right lower leg with fat layer exposed (2) Ulcer of left lower extremity with fat layer exposed: CODE(S): L97.922 - Non-pressure chronic ulcer of unspecified part of left lower leg with fat layer exposed (3) Venous insufficiency: CODE(S): I87.2 - Venous insufficiency (chronic) (peripheral) (4) Edema: CODE(S): R60.9 - Edema, unspecified QUALIFIERS: Edema type: unspecified Qualified Code(s): R60.9 - Edema, unspecified (5) History of CVA (cerebrovascular accident): CODE(S): Z86.73 - Personal history of transient ischemic attack (TIA), and cerebral infarction without residual deficits (6) Venous ulcer of left lower extremity with varicose veins: CODE(S): I83.029 - Varicose veins of left lower extremity with ulcer of unspecified site (7) Venous ulcer of both lower extremities with varicose veins: CODE(S): I83.019 - Varicose veins of right lower extremity with ulcer of unspecified site; I83.029 - Varicose veins of left lower extremity with ulcer of unspecified site (8) Venous ulcers of both lower extremities: CODE(S): I87.2 - Venous insufficiency (chronic) (peripheral) (9) Lymphedema: CODE(S): I89.0 - Lymphedema, not elsewhere classified PLAN: Plan Debridement performed today in clinic as annotated above. At home wound-care instructions: Apply Aquacel Extra to ulcers, cover with ABD and wrap with gauze and use compression with tubigrips and continue lasix 2 tabs BID. Plan to apply for Epifix application as he has not been improving as expected. It is medically necessary to prevent limb loss. Off-loading: The patient was instructed to avoid pressure and friction on the affected areas. Reposition every 2 hours at minimum. Avoid prolonged standing and/or dangling of legs. When seated, feet should be elevated at chest level. Frequent ambulation is encouraged. Encouraged lymphedema pump use. Diet: Patient encouraged to increase protein intake while taking caution to avoid high carbohydrate and/or sugar intake. Labs/cultures/imaging: Follow-up: Return in 1 week for wound care follow up. Return sooner or report to the emergency room should symptoms worsen, or new symptoms arise. Note: [employer] speech recognition administrative support clerk software was used to create portions of this document. Sound-alike and misspelled words, as well as other administrative support clerk errors may be contained in the documentation.
[2023-02-25 10:12] VITALS: BP 137/76; PULSE 69; RESP 18; TEMP 35.9
--- NOTE | 2023-02-25 15:01 | PN.PCM_ITS ---
History of Present Illness Date of Service: 02/25/23 Chief Complaint: venous ulcers of bilateral lower extremities History of Wound: Mauricio is a 67 yo gentleman who is here today for evaluation of ulcers to to his bilateral lower legs. He has been treated multiple times in the past at the wound healing center for similar ulcers. The left LE ulcer started after he developed increased swelling and blisters of left leg in October and the right leg started sometime at the end of October. He was seen at PCP's office a culture was taken and it was resistant to several antibiotics. He was treated initially with Levaquin but had myalgias and then was treated with doxycycline which he finished 2 days ago. He denies improvement and is having swelling to his left calf and thigh. He has been having swelling to both lower extremities for many years and it has worsened over the last few months. He has not been compliant with compression. He has had increased pain especially in the left leg. He has clear yellow drainage and redness without odor or warmth. He is anti- coagulated on coumadin. He has been washing with Dial soap and witch ifrah. He had been using Collagen at times and using Calcium Alginate and covering with ABD pads during October. He was treated with 3M compression and Aquacel Ag. He was referred to the wound center for ongoing treatment. His ulcers have moderate to heavy drainage. He was recently hospitalized for cellulitis and edema for the last 10 days. He was in the hospital from 11/30/22 until 12/09/22 for treatment of cellulitis and edema. He underwent treatment with Vancomycin and IV lasix and compression. Discharged on 12/09/22 and is currently in the Skilled section of [facility]. He returned to his assisted living apartment on Tuesday12/21/22. Subjective Subjective He tolerated treatment this week with Aquacel Extra and ABDs and tubigrips. His ulcers are slightly improved this week but edema is about the same. Denies fever, chills, increased pain or increased drainage. Objective Data Objective Data Vital Signs: Vital Signs Temp Pulse Resp BP 96.7 F L 69 18 137/76 H 02/25/23 10:12 02/25/23 10:12 02/25/23 10:12 02/25/23 10:12 Physical Exam Const alert, oriented x3 and no apparent distress General Appearance: cooperative and comfortable HEENT normocephalic and head/scalp atraumatic Lymph Lymphatic: lymphedema moderate Resp normal respiratory effort Effort and Inspection: able to speak in complete sentences Cardio regular rate and regular rhythm Extremity General Extremity: edema bilateral lower extremity Details: severe Skin Wounds: wounds noted Wound Narrative: as in clinical panel Psych mental status grossly normal, thought process normal, cooperative and affect normal Debridement Note Debridement Note Wound debrided: Left lateral LE cluster Laterality: Left Type of Debridement: Excisional debridement Anesthesia Used: 4% Lidocaine Solution Depth: Down to and including healthy tissue and in the subcutaneous layer Percentage of wound debrided: 100 Instrument Used: 5mm curette Tissue Removed: Yellow slough, devitalized tissue Severity: Fat Layer Exposed Amount of bleeding with debridement: Mild Bleeding Controlled with: Compression and gauze Patient tolerated procedure: Patient tolerated procedure well Post-Debridement Measurements and Additional Note: Post-Debridement Measurements/Treatment - Nurse 1 - General Ulcer Assessment Start: 02/11/23 09:54 Freq: Status: Active Protocol: ONDINA Activity Type Activity Date Activity User E-sign Co-sign Detail Recorded Client Recorded Date Recorded By Document 02/11/23 09:54 [id number] 02/11/23 10:04 Document 02/18/23 10:16 [id number] 02/18/23 10:23 Document 02/25/23 10:12 [id number] 02/25/23 10:15 02/11/23 02/18/23 02/25/23 09:54 10:16 10:12 - Today's Visit Information Type of service Follow-up Visit Follow-up Visit Follow-up Visit (Physician/COMPLIANCE ENGINE[employer] (Physician/COMPLIANCE ENGINE[employer] (Physician/COMPLIANCE [employer] ) ) ) Arrival Mode Ambulatory, Ambulatory, Ambulatory, Wheelchair Walker Walker Transfer Assistance None Patient Identification Verified (Name & Yes Yes Yes ) Patient Requires Transmission-Based No No No Precautions Vital Signs Temperature (97.8 F-99.1 F) 96.8 F L 96.8 F L 96.7 F L Temperature Source Temporal Temporal Temporal Pulse Rate (60-100) 74 70 69 Pulse Location Monitor Monitor Monitor Respiratory Rate (12-18) 18 22 H 18 Respiratory rate source Observation Observation Observation Blood Pressure (90/60-120/80) 152/84 H 123/52 H 137/76 H Blood Pressure Mean (mm Hg) 106 75 96 Source Monitor Monitor Monitor Position Semi-Fowlers Semi-Fowlers Blood Pressure Location Right Arm Right Arm History Since Last Visit- (Skip if this is Patient's initial visit) Have you changed medications since your No No No last visit? Any new allergies or adverse reactions No No No Had a fall/change in ADL's that may No No No increase risk of falls Signs or symptoms of abuse and/or No No No neglect since last visit Have you been in the hospital since your No No No last visit? Has dressing in place as prescribed Yes Yes Yes Has compression in place as prescribed Yes Yes Yes Has offloadiing in place as prescribed N/A N/A N/A Experienced any changes in pain level or No No No management Left Footwear Regular Shoe Regular Shoe Right Footwear Regular Shoe Regular Shoe Pain Scale: 0-10 Numeric Is Patient Pain Free? Yes Yes Yes WC - Nurse 1 - General Ulcer Measurement Start: 02/11/23 09:54 Freq: Status: Active Protocol: Activity Type Activity Date Activity User E-sign Co-sign Detail Recorded Client Recorded Date Recorded By Document 02/11/23 09:54 [id number] 02/11/23 10:04 Document 02/18/23 10:16 [id number] 02/18/23 10:23 Document 02/25/23 10:12 [id number] 02/25/23 10:15 02/11/23 02/18/23 02/25/23 09:54 10:16 10:12 Wound Center Nurse 1 #19 Left Lateral LE cluster -Combined with other wound No No -Current Size (cm) - Length 1.0 1.2 1.3 -Current Size (cm) - Width 1.0 0.8 0.5 -Current Size (cm) - Depth 0.1 0.2 0.1 -Total Square Cm 1.00 0.96 0.65 -Photo Taken Yes No No -Epithelialization Medium 34-66% None Present -Tunneling No No -Undermining/Tunneling No No -Circular Undermining No No -Exudate Amt Small Small Medium -Exudate Type Serosanguineous Serosanguineous Serosanguineous -Wound Margin Flat & Intact Distinct, Flat & Intact Outline Attached -Granulation Amt Large (67-100%) Large (67-100%) Large (67-100%) -Granulation Quality Red Red Red -Slough/Fibrin Yes Yes -Necrosis Amt Small (1-33%) Small (1-33%) Small (1-33%) -Necrotic Tissue Type Adherent Slough Adherent Slough Adherent Slough -Structure Exposed N/A N/A N/A -Texture (Marie-wound Skin Appearance) Assessed, Scarring Assessed, Localized Edema Localized Edema -Moisture (Marie-wound Skin Appearance) Assessed,Dry/ No Abnormality Assessed,Dry/ Scaly Scaly -Color (Marie-wound Skin Appearance) Not Assessed Hemosiderin Assessed Staining -Temperature (Marie-wound Skin No Abnormality No Abnormality No Abnormality Appearance) (Pt Warm) (Pt Warm) (Pt Warm) -Tenderness on Palpation (Marie-wound No No No Skin Appearance) -Ulcer Cleansing Wound Cleanser Soap and Water Soap and Water -Foul Odor after Cleansing No No No -Anesthetic Used 5% Lidocaine 5% Lidocaine 5% Lidocaine Gel Gel Gel #18 Left medial LE cluster -Combined with other wound No No -Current Size (cm) - Length 6.5 6.8 6.2 -Current Size (cm) - Width 9.4 9 9.2 -Current Size (cm) - Depth 0.2 0.3 0.2 -Total Square Cm 61.10 61.2 57.04 -Photo Taken Yes No No -Epithelialization Small 1-33% None Present -Tunneling No No -Undermining/Tunneling No No -Circular Undermining No No -Exudate Amt Large Large Large -Exudate Type Serosanguineous Serosanguineous Serosanguineous -Wound Margin Flat & Intact Distinct, Flat & Intact Outline Attached -Granulation Amt Large (67-100%) Large (67-100%) Large (67-100%) -Granulation Quality Red Red Red -Slough/Fibrin Yes Yes -Necrosis Amt Small (1-33%) Small (1-33%) Small (1-33%) -Necrotic Tissue Type Adherent Slough Adherent Slough Adherent Slough -Structure Exposed N/A N/A N/A -Texture (Marie-wound Skin Appearance) Assessed, Scarring Assessed, Localized Edema Localized Edema -Moisture (Marie-wound Skin Appearance) Assessed,Dry/ No Abnormality Assessed,Dry/ Scaly Scaly -Color (Marie-wound Skin Appearance) Assessed, Hemosiderin Assessed, Erythema Staining Hemosiderin Staining -Temperature (Marie-wound Skin No Abnormality No Abnormality No Abnormality Appearance) (Pt Warm) (Pt Warm) (Pt Warm) -Tenderness on Palpation (Marie-wound No No No Skin Appearance) -Ulcer Cleansing Wound Cleanser Soap and Water Wound Cleanser -Foul Odor after Cleansing No No No -Anesthetic Used 5% Lidocaine 5% Lidocaine 5% Lidocaine Gel Gel Gel Lower Limb Edema Present Yes Yes Right Calf (cm) 44 Right Ankle (cm) 28.2 Left Calf (cm) 42.3 42 42.5 Left Ankle (cm) 29.8 29.5 28.5 WC - Nurse 2 - General Ulcer CM Notes Start: 02/11/23 09:54 Freq: Status: Active Protocol: Activity Type Activity Date Activity User E-sign Co-sign Detail Recorded Client Recorded Date Recorded By Document 02/11/23 10:05 MW [id number] 02/11/23 10:24 MW Document 02/18/23 11:00 MW [id number] 02/18/23 11:21 MW Document 02/25/23 10:55 [id number] 02/25/23 11:01 JF 02/11/23 02/18/23 02/25/23 10:05 11:00 10:55 Wound Center Nurse 2 #19 Left Lateral LE cluster -Time 10:06 11:00 10:55 -Correct Patient Yes Yes Yes -Correct Side, Site, Position Yes Yes Yes -Correct Procedure Yes Yes Yes -Procedure Performed Yes Yes Yes -Type of Procedure Debridement Debridement Debridement -Clinical Debridement Subcutaneous Subcutaneous Subcutaneous -Tissue Removed Subcutaneous Subcutaneous Subcutaneous -Post Debridement (cm) - Length 1.2 1.2 0.9 -Post Debridement (cm) - Width 1.2 1.0 0.5 -Post Debridement (cm) - Depth 0.1 0.1 0.1 -Total Square (Post) (cm) 1.44 1.20 0.45 -Area of Debridement (cm) - Length 1.2 1.2 0.9 -Area of Debridement (cm) - Width 1.2 1.0 0.5 -Total Square (Area) (cm) 1.44 1.20 0.45 -Tunneling No No No -Undermining/Tunneling No No No -Circular Undermining No No No -Wound/Ulcer Outcome Not Healed Not Healed Not Healed -Ulcer Cleansing Rinsed/ Rinsed/ Rinsed/ Irrigated with Irrigated with Irrigated with Saline Saline Saline -Foul Odor after Cleansing No No No -Bioengineered Tissue No No No -Bleeding Controlled with Pressure Pressure Pressure -Treatment Response Procedure Procedure Procedure Tolerated Well Tolerated Well Tolerated Well -Offloading No No No -Debridement - Subq, 1st 20sq cm Yes Yes Yes -Debridement, SubQ, ea addt'l 20sq cm 2 2 or part thereof #18 Left medial LE cluster -Time 10:07 11:01 10:56 -Correct Patient Yes Yes Yes -Correct Side, Site, Position Yes Yes Yes -Correct Procedure Yes Yes Yes -Procedure Performed Yes Yes Yes -Type of Procedure Debridement Debridement Debridement -Clinical Debridement Subcutaneous Subcutaneous Subcutaneous -Tissue Removed Subcutaneous Subcutaneous Subcutaneous -Post Debridement (cm) - Length 5.5 5.9 6.0 -Post Debridement (cm) - Width 8.2 8.7 9.2 -Post Debridement (cm) - Depth 0.3 0.3 0.2 -Total Square (Post) (cm) 45.10 51.33 55.20 -Area of Debridement (cm) - Length 5.5 5.9 6.0 -Area of Debridement (cm) - Width 8.2 8.7 9.2 -Total Square (Area) (cm) 45.10 51.33 55.20 -Tunneling No No No -Undermining/Tunneling No No No -Circular Undermining No No No -Wound/Ulcer Outcome Not Healed Not Healed Not Healed -Ulcer Cleansing Rinsed/ Rinsed/ Rinsed/ Irrigated with Irrigated with Irrigated with Saline Saline Saline -Foul Odor after Cleansing No No No -Bioengineered Tissue No No Yes -Type of Bioengineered Tissue Epifix Mesh -Expiration Date 12/09/27 -Product Lot Number [id number] -Percent Used 100 -Lot number of Saline Used [id number] -Bleeding Controlled with Pressure Pressure Pressure -Treatment Response Procedure Procedure Procedure Tolerated Well Tolerated Well Tolerated Well -Offloading No No No -Debridement - Subq, 1st 20sq cm No No No -Apply Skin Sub - 1st 25 sq cm - Legs 1 -Apply Skin Sub - each addt'l 25 sq cm 2 - Legs -Epifix Mesh (per sq cm) 11 Pain Scale: 0-10 Numeric Is Patient Pain Free? Yes Yes Yes WC - Nurse 3 - General Ulcer D/C NN Start: 02/11/23 09:54 Freq: Status: Active Protocol: Activity Type Activity Date Activity User E-sign Co-sign Detail Recorded Client Recorded Date Recorded By Document 02/11/23 10:43 RB [id number] 02/11/23 10:45 RB Document 02/18/23 11:40 RB [id number] 02/18/23 11:41 RB Document 02/25/23 12:20 RB [id number] 02/25/23 12:22 RB 02/11/23 02/18/23 02/25/23 10:43 11:40 12:20 Wound Care Center Nurse 3 #19 Left Lateral LE cluster -Ulcer Cleansing Rinsed/ Rinsed/ Irrigated with Irrigated with Saline Saline -Primary Dressing Applied Aquacel Extra Aquacel Extra Aquacel Extra -Other Dressing abd, kerlix abd ABD -Primary Dressing Covered/Secured with Secured with Dry Gauze & Dry Gauze & Tape Roll Gauze, Roll Gauze, Secured with Secured with Tape Tape -Aquacel Extra 1 1 1 #18 Left medial LE cluster -Ulcer Cleansing Rinsed/ Rinsed/ Irrigated with Irrigated with Saline Saline -Other Dressing aquacel extra, aquacel extra aquacel extra, abd ABD -Primary Dressing Covered/Secured with Dry Gauze & Dry Gauze & Dry Gauze & Roll Gauze, Roll Gauze, Roll Gauze, Secured with Secured with Secured with Tape Tape Tape Right -Tubular Bandage Double Layer -Size of Tubigrip Used Size E -Size E ($) 2 -Other single layer tubigrip Left -Tubular Bandage Double Layer Single Layer -Size of Tubigrip Used Size E Size E -Size E ($) 2 1 -Other single layer tubigrip Treatment Response Procedure Procedure Procedure Tolerated Well Tolerated Well Tolerated Well Pain Scale: 0-10 Numeric Is Patient Pain Free? Yes Yes Yes Teaching: Wound Center Compression Wraps & Stockings -Person Taught Patient -Teaching Method Discussion, Demonstration -Response to teaching Verbalize understanding Dressing Your Wound -Person Taught Patient -Teaching Method Discussion, Demonstration -Response to teaching Verbalize understanding WC - Visit Discharge Discharge Condition Stable Stable Stable Ambulatory Status Ambulatory, Ambulatory Ambulatory, Walker Walker Transportation Private Auto Private Auto Private Auto Medication Reconcilliation completed & No No No provided to patient/care provider Clinical Summary of Care Provided Yes Yes Yes Additional Wound Wound debrided: left medial LE cluster Laterality: Left Type of Debridement: Excisional debridement Anesthesia Used: 4% Lidocaine Solution and 5% Lidocaine Gel Depth: Down to and including healthy tissue and in the subcutaneous layer Percentage of wound debrided: 100 Instrument Used: 5mm curette Tissue Removed: yellow slough, devitalized tissue Severity: Fat Layer Exposed Amount of bleeding with debridement: Mild Bleeding Controlled with: Compression and gauze Patient tolerated procedure: Patient tolerated procedure well Assessment/Plan Assessment/Plan (1) Ulcer of right lower extremity with fat layer exposed: CODE(S): L97.912 - Non-pressure chronic ulcer of unspecified part of right lower leg with fat layer exposed (2) Ulcer of left lower extremity with fat layer exposed: CODE(S): L97.922 - Non-pressure chronic ulcer of unspecified part of left lower leg with fat layer exposed (3) Venous insufficiency: CODE(S): I87.2 - Venous insufficiency (chronic) (peripheral) (4) Edema: CODE(S): R60.9 - Edema, unspecified QUALIFIERS: Edema type: unspecified Qualified Code(s): R60.9 - Edema, unspecified (5) History of CVA (cerebrovascular accident): CODE(S): Z86.73 - Personal history of transient ischemic attack (TIA), and cerebral infarction without residual deficits (6) Venous ulcer of left lower extremity with varicose veins: CODE(S): I83.029 - Varicose veins of left lower extremity with ulcer of unspecified site (7) Venous ulcer of both lower extremities with varicose veins: CODE(S): I83.019 - Varicose veins of right lower extremity with ulcer of unspecified site; I83.029 - Varicose veins of left lower extremity with ulcer of unspecified site (8) Venous ulcers of both lower extremities: CODE(S): I87.2 - Venous insufficiency (chronic) (peripheral) (9) Lymphedema: CODE(S): I89.0 - Lymphedema, not elsewhere classified PLAN: Plan Debridement performed today in clinic as annotated above. At home wound-care instructions: Epifix was approved and was applied to ulcers per valve grinder guidelines and covered with adaptic touch secured with steri- strips and will apply Aquacel Extra as secondary dressing to ulcers, cover with ABD and wrap with gauze and use compression with tubigrips and continue lasix 3 tabs BID. Epifix #1 applied today. Off-loading: The patient was instructed to avoid pressure and friction on the affected areas. Reposition every 2 hours at minimum. Avoid prolonged standing and/or dangling of legs. When seated, feet should be elevated at chest level. Frequent ambulation is encouraged. Encouraged lymphedema pump use. Diet: Patient encouraged to increase protein intake while taking caution to avoid high carbohydrate and/or sugar intake. Labs/cultures/imaging: Follow-up: Return in 2 weeks for wound care follow up and have secondary d ressing changed by home health until seen in 2 weeks. Return sooner or report to the emergency room should symptoms worsen, or new symptoms arise. Note: [employer] speech recognition citrix consultant software was used to create portions of this document. Sound-alike and misspelled words, as well as other citrix consultant errors may be contained in the documentation.
--- NOTE | 2023-03-04 11:20 | WC ---
Received a call from Mckenzie nurse with [facility] home health. She stated patient has 2 new small superficial open areas to left [place]ork. She covered with an ABD pad until next appt. Mckenzie also stated patient has green drainage left medial lower leg ulcer. No odor or other signs of infection. Dr. Garcia notified.
== END 2023-03-09 23:59 | disposition home or self-care (01) ==
LOC: WC 09:30
PROVIDERS: PCP Family Medicine; Visit Provider Family Medicine
DX: I87.2 Venous insufficiency (chronic) (peripheral) (principal); L97.922 Non-pressure chronic ulcer of unspecified part of left lower leg with fat layer exposed; L97.912 Non-pressure chronic ulcer of unspecified part of right lower leg with fat layer exposed; I83.029 Varicose veins of left lower extremity with ulcer of unspecified site; I83.019 Varicose veins of right lower extremity with ulcer of unspecified site; I89.0 Lymphedema, not elsewhere classified; I83.93 Asymptomatic varicose veins of bilateral lower extremities; R60.9 Edema, unspecified; M79.10 Myalgia, unspecified site; B96.5 Pseudomonas (aeruginosa) (mallei) (pseudomallei) as the cause of diseases classified elsewhere; M79.605 Pain in left leg; Z86.73 Personal history of transient ischemic attack (TIA), and cerebral infarction without residual deficits
CPT/HCPCS: 11042; 11045; 15271; 15272; Q4186

== ENCOUNTER 2023-04-08 09:30 | Outpatient (RCR) | payer MEDICARE, OTHER, SELFPAY ==
[2023-03-10 00:19] VITALS: BP 137/76; PULSE 69; RESP 18; TEMP 35.9
[2023-03-11 09:44] VITALS: BP 126/77; PULSE 77; TEMP 36.3
--- NOTE | 2023-03-11 13:44 | PCM.WC.PN ---
History of Present Illness Date of Service: 03/11/23 Chief Complaint: venous ulcers of bilateral lower extremities History of Wound: Mauricio is a 67 yo gentleman who is here today for evaluation of ulcers to to his bilateral lower legs. He has been treated multiple times in the past at the wound healing center for similar ulcers. The left LE ulcer started after he developed increased swelling and blisters of left leg in October and the right leg started sometime at the end of October. He was seen at PCP's office a culture was taken and it was resistant to several antibiotics. He was treated initially with Levaquin but had myalgias and then was treated with doxycycline which he finished 2 days ago. He denies improvement and is having swelling to his left calf and thigh. He has been having swelling to both lower extremities for many years and it has worsened over the last few months. He has not been compliant with compression. He has had increased pain especially in the left leg. He has clear yellow drainage and redness without odor or warmth. He is anti-coagulated on coumadin. He has been washing with Dial soap and witch ifrah. He had been using Collagen at times and using Calcium Alginate and covering with ABD pads during October. He was treated with 3M compression and Aquacel Ag. He was referred to the wound center for ongoing treatment. His ulcers have moderate to heavy drainage. He was recently hospitalized for cellulitis and edema for the last 10 days. He was in the hospital from 11/30/22 until 12/09/22 for treatment of cellulitis and edema. He underwent treatment with Vancomycin and IV lasix and compression. Discharged on 12/09/22 and is currently in the Skilled section of [facility]. He returned to his assisted living apartment on Tuesday12/21/22. Subjective Subjective He tolerated treatment with Epifix and Aquacel Extra and ABDs and tubigrips. His ulcers are slightly improved this week but edema is about the same. He unfortunately developed skin tears to his left york. Denies fever, chills, increased pain or increased drainage. Objective Data Objective Data Vital Signs: Vital Signs Temp Pulse Resp BP 97.4 F L 77 18 126/77 H 03/11/23 09:44 03/11/23 09:44 03/10/23 00:19 03/11/23 09:44 Physical Exam Const alert, oriented x3 and no apparent distress General Appearance: cooperative and comfortable HEENT normocephalic and head/scalp atraumatic Lymph Lymphatic: lymphedema moderate Resp normal respiratory effort Effort and Inspection: able to speak in complete sentences Cardio regular rate and regular rhythm Extremity General Extremity: edema bilateral lower extremity Details: severe Skin Wounds: wounds noted Wound Narrative: as in clinical panel Psych mental status grossly normal, thought process normal, cooperative and affect normal Debridement Note Debridement Note Wound debrided: Left lateral LE cluster Laterality: Left Type of Debridement: Excisional debridement Anesthesia Used: 4% Lidocaine Solution Depth: Down to and including healthy tissue and in the subcutaneous layer Percentage of wound debrided: 100 Instrument Used: 5mm curette Tissue Removed: Yellow slough, devitalized tissue Severity: Fat Layer Exposed Amount of bleeding with debridement: Mild Bleeding Controlled with: Compression and gauze Patient tolerated procedure: Patient tolerated procedure well Post-Debridement Measurements and Additional Note: Post-Debridement Measurements/Treatment - Nurse 1 - General Ulcer Assessment Start: 03/11/23 09:44 Freq: Status: Active Protocol: ONDINA Activity Type Activity Date Activity User E-sign Co-sign Detail Recorded Client Recorded Date Recorded By Document 03/11/23 09:44 JOE [id number] 03/11/23 09:46 JOE 03/11/23 09:44 - Today's Visit Information Type of service Follow-up Visit (Physician/[employer] ) Arrival Mode Ambulatory Patient Identification Verified (Name & No ) Patient Requires Transmission-Based No Precautions Vital Signs Temperature (97.8 F-99.1 F) 97.4 F L Temperature Source Temporal Pulse Rate (60-100) 77 Pulse Location Monitor Blood Pressure (90/60-120/80) 126/77 H Blood Pressure Mean (mm Hg) 93 Source Monitor History Since Last Visit- (Skip if this is Patient's initial visit) Have you changed medications since your No last visit? Any new allergies or adverse reactions No Had a fall/change in ADL's that may No increase risk of falls Signs or symptoms of abuse and/or No neglect since last visit Have you been in the hospital since your No last visit? Has dressing in place as prescribed Yes Has compression in place as prescribed N/A Has offloadiing in place as prescribed N/A Experienced any changes in pain level or No management Left Footwear Regular Shoe Right Footwear Regular Shoe Pain Scale: 0-10 Numeric Is Patient Pain Free? Yes WC - Nurse 1 - General Ulcer Measurement Start: 03/11/23 09:44 Freq: Status: Active Protocol: Activity Type Activity Date Activity User E-sign Co-sign Detail Recorded Client Recorded Date Recorded By Document 03/11/23 09:44 JOE [id number] 03/11/23 09:46 JOE 03/11/23 09:44 Wound Center Nurse 1 #19 Left Lateral LE cluster -Combined with other wound No -Current Size (cm) - Length 7 -Current Size (cm) - Width 10.5 -Current Size (cm) - Depth 0.1 -Total Square Cm 73.5 -Photo Taken Yes -Tunneling No -Undermining/Tunneling No -Circular Undermining No -Change in Wound Grade/Stage No -Exudate Amt Medium -Exudate Type Serosanguineous -Wound Margin Distinct, Outline Attached -Granulation Amt Large (67-100%) -Granulation Quality Hyper- granulation, [place] -Slough/Fibrin No -Necrosis Amt None Present (0 %) -Structure Exposed N/A -Texture (Marie-wound Skin Appearance) Assessed, Scarring -Moisture (Marie-wound Skin Appearance) No Abnormality -Color (Marie-wound Skin Appearance) No Abnormality, Assessed -Temperature (Marie-wound Skin No Abnormality Appearance) (Pt Warm) -Tenderness on Palpation (Marie-wound No Skin Appearance) -Ulcer Cleansing Soap and Water -Foul Odor after Cleansing No -Anesthetic Used 4% Lidocaine Solution #18 Left medial LE cluster -Combined with other wound No -Current Size (cm) - Length 6.5 -Current Size (cm) - Width 4 -Current Size (cm) - Depth 0.1 -Total Square Cm 26.0 -Photo Taken Yes -Tunneling No -Undermining/Tunneling No -Circular Undermining No -Change in Wound Grade/Stage No -Exudate Type Serosanguineous -Wound Margin Distinct, Outline Attached -Granulation Amt Large (67-100%) -Granulation Quality [place] -Slough/Fibrin Yes -Necrosis Amt Small (1-33%) -Necrotic Tissue Type Adherent Slough -Structure Exposed N/A -Texture (Marie-wound Skin Appearance) Assessed, Scarring -Moisture (Marie-wound Skin Appearance) Assessed -Color (Marie-wound Skin Appearance) Assessed, Hemosiderin Staining -Temperature (Marie-wound Skin No Abnormality Appearance) (Pt Warm) -Tenderness on Palpation (Marie-wound Yes Skin Appearance) -Ulcer Cleansing Soap and Water -Foul Odor after Cleansing No -Anesthetic Used 4% Lidocaine Solution WC - Nurse 2 - General Ulcer CM Notes Start: 03/11/23 09:44 Freq: Status: Active Protocol: Activity Type Activity Date Activity User E-sign Co-sign Detail Recorded Client Recorded Date Recorded By Document 03/11/23 10:24 MW [id number] 03/11/23 10:35 MW Edit Result 03/11/23 10:24 MW (1) [id number] 03/11/23 10:36 MW (1) #21 LEFT [place] - Debridement - Subq, 20sq cm No => Yes 03/11/23 10:24 Wound Center Nurse 2 #21 LEFT [place] -Time 10:25 -Correct Patient Yes -Correct Side, Site, Position Yes -Correct Procedure Yes -Procedure Performed Yes -Type of Procedure Debridement -Clinical Debridement Subcutaneous -Tissue Removed Subcutaneous -Post Debridement (cm) - Length 2.5 -Post Debridement (cm) - Width 1.9 -Post Debridement (cm) - Depth 0.1 -Total Square (Post) (cm) 4.75 -Area of Debridement (cm) - Length 2.5 -Area of Debridement (cm) - Width 1.9 -Total Square (Area) (cm) 4.75 -Tunneling No -Undermining/Tunneling No -Circular Undermining No -Wound/Ulcer Outcome Not Healed -Ulcer Cleansing Rinsed/ Irrigated with Saline -Foul Odor after Cleansing No -Bioengineered Tissue No -Bleeding Controlled with Pressure -Treatment Response Procedure Tolerated Well -Offloading No -Debridement - Subq, 1st 20sq cm Yes #19 Left Lateral LE cluster -Time 10:24 -Correct Patient Yes -Correct Side, Site, Position Yes -Correct Procedure Yes -Procedure Performed Yes -Type of Procedure Debridement -Clinical Debridement Subcutaneous -Tissue Removed Subcutaneous -Post Debridement (cm) - Length 0.8 -Post Debridement (cm) - Width 0.7 -Post Debridement (cm) - Depth 0.1 -Total Square (Post) (cm) 0.56 -Area of Debridement (cm) - Length 0.8 -Area of Debridement (cm) - Width 0.7 -Total Square (Area) (cm) 0.56 -Tunneling No -Undermining/Tunneling No -Circular Undermining No -Wound/Ulcer Outcome Not Healed -Ulcer Cleansing Rinsed/ Irrigated with Saline -Foul Odor after Cleansing No -Bioengineered Tissue No -Bleeding Controlled with Pressure -Treatment Response Procedure Tolerated Well -Offloading No -Debridement - Subq, 1st 20sq cm No #18 Left medial LE cluster -Time 10:24 -Correct Patient Yes -Correct Side, Site, Position Yes -Correct Procedure Yes -Procedure Performed Yes -Type of Procedure Debridement -Clinical Debridement Subcutaneous -Tissue Removed Subcutaneous -Post Debridement (cm) - Length 6.5 -Post Debridement (cm) - Width 9.1 -Post Debridement (cm) - Depth 0.2 -Total Square (Post) (cm) 59.15 -Area of Debridement (cm) - Length 6.5 -Area of Debridement (cm) - Width 9.1 -Total Square (Area) (cm) 59.15 -Tunneling No -Undermining/Tunneling No -Circular Undermining No -Wound/Ulcer Outcome Not Healed -Ulcer Cleansing Rinsed/ Irrigated with Saline -Foul Odor after Cleansing No -Bioengineered Tissue Yes -Type of Bioengineered Tissue Epifix Mesh -Expiration Date 01/09/28 -Product Lot Number [id number] -Percent Used 100 -Lot number of Saline Used [id number] -Bleeding Controlled with Pressure -Treatment Response Procedure Tolerated Well -Offloading No -Debridement - Subq, 1st 20sq cm No -Apply Skin Sub - 1st 25 sq cm - Legs 1 -Epifix Mesh (per sq cm) 11 Pain Scale: 0-10 Numeric Is Patient Pain Free? Yes - Nurse 3 - General Ulcer D/C NN Start: 03/11/23 09:44 Freq: Status: Active Protocol: Activity Type Activity Date Activity User E-sign Co-sign Detail Recorded Client Recorded Date Recorded By Document 03/11/23 10:58 RB [id number] 03/11/23 10:59 RB 03/11/23 10:58 Wound Care Center Nurse 3 #21 LEFT [place] -Primary Dressing Applied Aquacel Extra -Primary Dressing Covered/Secured with Dry Gauze,Dry Gauze & Roll Gauze,Secured with Tape -Aquacel Extra 2 #19 Left Lateral LE cluster -Other Dressing aquacel extra , abd #18 Left medial LE cluster -Other Dressing aquacel extra abd -Primary Dressing Covered/Secured with Dry Gauze & Roll Gauze, Secured with Tape Treatment Response Procedure Tolerated Well Pain Scale: 0-10 Numeric Is Patient Pain Free? Yes WC - Visit Discharge Discharge Condition Stable Ambulatory Status Ambulatory, Walker Transportation Private Auto Medication Reconcilliation completed & No provided to patient/care provider Clinical Summary of Care Provided Yes Additional Wound Wound debrided: left medial LE cluster Laterality: Left Type of Debridement: Excisional debridement Anesthesia Used: 4% Lidocaine Solution and 5% Lidocaine Gel Depth: Down to and including healthy tissue and in the subcutaneous layer Percentage of wound debrided: 100 Instrument Used: 5mm curette Tissue Removed: yellow slough, devitalized tissue Severity: Fat Layer Exposed Amount of bleeding with debridement: Mild Bleeding Controlled with: Compression and gauze Patient tolerated procedure: Patient tolerated procedure well Additional Wound Wound debrided: left [place] Laterality: Left Type of Debridement: Excisional debridement Anesthesia Used: 4% Lidocaine Solution and 5% Lidocaine Gel Depth: Down to and including healthy tissue and in the subcutaneous layer Percentage of wound debrided: 100 Instrument Used: 5mm curette Tissue Removed: Yellow slough, devitalized tissue Severity: Fat Layer Exposed Amount of bleeding with debridement: Mild Bleeding Controlled with: Compression and gauze Patient tolerated procedure: Patient tolerated procedure well Assessment/Plan Assessment/Plan (1) Ulcer of right lower extremity with fat layer exposed: CODE(S): L97.912 - Non-pressure chronic ulcer of unspecified part of right lower leg with fat layer exposed (2) Ulcer of left lower extremity with fat layer exposed: CODE(S): L97.922 - Non-pressure chronic ulcer of unspecified part of left lower leg with fat layer exposed (3) Venous insufficiency: CODE(S): I87.2 - Venous insufficiency (chronic) (peripheral) (4) Edema: CODE(S): R60.9 - Edema, unspecified QUALIFIERS: Edema type: unspecified Qualified Code(s): R60.9 - Edema, unspecified (5) History of CVA (cerebrovascular accident): CODE(S): Z86.73 - Personal history of transient ischemic attack (TIA), and cerebral infarction without residual deficits (6) Venous ulcer of left lower extremity with varicose veins: CODE(S): I83.029 - Varicose veins of left lower extremity with ulcer of unspecified site (7) Venous ulcer of both lower extremities with varicose veins: CODE(S): I83.019 - Varicose veins of right lower extremity with ulcer of unspecified site; I83.029 - Varicose veins of left lower extremity with ulcer of unspecified site (8) Venous ulcers of both lower extremities: CODE(S): I87.2 - Venous insufficiency (chronic) (peripheral) (9) Lymphedema: CODE(S): I89.0 - Lymphedema, not elsewhere classified PLAN: Plan Debridement performed today in clinic as annotated above. At home wound-care instructions: Epifix was applied to ulcers per storage solutions architect guidelines and covered with adaptic touch secured with steri-strips and will apply Aquacel Extra as secondary dressing to ulcers, cover with ABD and wrap with gauze and use compression with tubigrips and continue lasix 3 tabs BID. Epifix #2 applied today. Off-loading: The patient was instructed to avoid pressure and friction on the affected areas. Reposition every 2 hours at minimum. Avoid prolonged standing and/or dangling of legs. When seated, feet should be elevated at chest level. Frequent ambulation is encouraged. Encouraged lymphedema pump use. Diet: Patient encouraged to increase protein intake while taking caution to avoid high carbohydrate and/or sugar intake. Labs/cultures/imaging: Follow-up: Return in 1 week for wound care follow up and have secondary dressing changed by home health Tuesday and Tuesday. Return sooner or report to the emergency room should symptoms worsen, or new symptoms arise. Note: [employer] speech recognition hard metals engraver hand software was used to create portions of this document. Sound-alike and misspelled words, as well as other hard metals engraver hand errors may be contained in the documentation.
[2023-03-18 09:41] VITALS: BP 101/60; PULSE 64; RESP 20; TEMP 36.2
--- NOTE | 2023-03-18 13:15 | PCM.WC.PN ---
History of Present Illness Date of Service: 03/18/23 Chief Complaint: venous ulcers of left lower extremity History of Wound: Mauricio is a 67 yo gentleman who is here today for evaluation of ulcers to to his bilateral lower legs. He has been treated multiple times in the past at the wound healing center for similar ulcers. The left LE ulcer started after he developed increased swelling and blisters of left leg in October and the right leg started sometime at the end of October. He was seen at PCP's office a culture was taken and it was resistant to several antibiotics. He was treated initially with Levaquin but had myalgias and then was treated with doxycycline which he finished 2 days ago. He denies improvement and is having swelling to his left calf and thigh. He has been having swelling to both lower extremities for many years and it has worsened over the last few months. He has not been compliant with compression. He has had increased pain especially in the left leg. He has clear yellow drainage and redness without odor or warmth. He is anti-coagulated on coumadin. He has been washing with Dial soap and witch ifrah. He had been using Collagen at times and using Calcium Alginate and covering with ABD pads during October. He was treated with 3M compression and Aquacel Ag. He was referred to the wound center for ongoing treatment. His ulcers have moderate to heavy drainage. He was recently hospitalized for cellulitis and edema for the last 10 days. He was in the hospital from 11/30/22 until 12/09/22 for treatment of cellulitis and edema. He underwent treatment with Vancomycin and IV lasix and compression. Discharged on 12/09/22 and is currently in the Skilled section of [facility]. He returned to his assisted living apartment on Tuesday12/21/22. Subjective Subjective He tolerated treatment with Epifix and Aquacel Extra and ABDs and tubigrips. His left lower leg ulcers are slightly improved this week but edema is about the same. He unfortunately developed skin tears to his left york. Denies fever, chills, increased pain or increased drainage. Objective Data Objective Data Vital Signs: Vital Signs Temp Pulse Resp BP 97.2 F L 64 20 H 101/60 03/18/23 09:41 03/18/23 09:41 03/18/23 09:41 03/18/23 09:41 Physical Exam Const alert, oriented x3 and no apparent distress General Appearance: cooperative and comfortable HEENT normocephalic and head/scalp atraumatic Lymph Lymphatic: lymphedema moderate Resp normal respiratory effort Effort and Inspection: able to speak in complete sentences Cardio regular rate and regular rhythm Extremity General Extremity: edema bilateral lower extremity Details: severe Skin Wounds: wounds noted Wound Narrative: as in clinical panel Psych mental status grossly normal, thought process normal, cooperative and affect normal Debridement Note Debridement Note Wound debrided: Left lateral LE cluster Laterality: Left Type of Debridement: Excisional debridement Anesthesia Used: 4% Lidocaine Solution Depth: Down to and including healthy tissue and in the subcutaneous layer Percentage of wound debrided: 100 Instrument Used: 5mm curette Tissue Removed: Yellow slough, devitalized tissue Severity: Fat Layer Exposed Amount of bleeding with debridement: Mild Bleeding Controlled with: Compression and gauze Patient tolerated procedure: Patient tolerated procedure well Post-Debridement Measurements and Additional Note: Post-Debridement Measurements/Treatment - Nurse 1 - General Ulcer Assessment Start: 03/11/23 09:44 Freq: Status: Active Protocol: ONDINA Activity Type Activity Date Activity User E-sign Co-sign Detail Recorded Client Recorded Date Recorded By Document 03/11/23 09:44 AK [id number] 03/11/23 09:46 AK Document 03/18/23 09:41 DL [id number] 03/18/23 09:52 DL 03/11/23 03/18/23 09:44 09:41 - Today's Visit Information Type of service Follow-up Visit Follow-up Visit (Physician/YARDING SUPERVISOR (Physician/YARDING SUPERVISOR ) ) Arrival Mode Ambulatory Ambulatory, Walker Transfer Assistance None Patient Identification Verified (Name & No Yes ) Patient Requires Transmission-Based No No Precautions Vital Signs Temperature (97.8 F-99.1 F) 97.4 F L 97.2 F L Temperature Source Temporal Temporal Pulse Rate (60-100) 77 64 Pulse Location Monitor Monitor Respiratory Rate (12-18) 20 H Respiratory rate source Observation Blood Pressure (90/60-120/80) 126/77 H 101/60 Blood Pressure Mean (mm Hg) 93 73 Source Monitor Monitor History Since Last Visit- (Skip if this is Patient's initial visit) Have you changed medications since your No No last visit? Any new allergies or adverse reactions No No Had a fall/change in ADL's that may No No increase risk of falls Signs or symptoms of abuse and/or No No neglect since last visit Have you been in the hospital since your No No last visit? Has dressing in place as prescribed Yes Yes Has compression in place as prescribed N/A Yes Has offloadiing in place as prescribed N/A N/A Experienced any changes in pain level or No No management Left Footwear Regular Shoe Right Footwear Regular Shoe Pain Scale: 0-10 Numeric Is Patient Pain Free? Yes Yes WC - Nurse 1 - General Ulcer Measurement Start: 03/11/23 09:44 Freq: Status: Active Protocol: Activity Type Activity Date Activity User E-sign Co-sign Detail Recorded Client Recorded Date Recorded By Document 03/11/23 09:44 AK [id number] 03/11/23 09:46 AK Document 03/18/23 09:41 DL [id number] 03/18/23 09:52 DL 03/11/23 03/18/23 09:44 09:41 Wound Center Nurse 1 #21 LEFT [place] -Current Size (cm) - Length 2.2 -Current Size (cm) - Width 0.8 -Current Size (cm) - Depth 0.1 -Total Square Cm 1.76 -Exudate Amt Small -Exudate Type Serosanguineous -Wound Margin Distinct, Outline Attached -Granulation Amt Large (67-100%) -Granulation Quality Red -Necrosis Amt Small (1-33%) -Necrotic Tissue Type Adherent Slough -Structure Exposed N/A -Texture (Marie-wound Skin Appearance) Scarring -Moisture (Marie-wound Skin Appearance) Dry/Scaly -Color (Marie-wound Skin Appearance) Hemosiderin Staining -Temperature (Marie-wound Skin No Abnormality Appearance) (Pt Warm) -Tenderness on Palpation (Marie-wound No Skin Appearance) -Ulcer Cleansing Not Cleansed -Foul Odor after Cleansing No -Anesthetic Used 5% Lidocaine Gel #19 Left Lateral LE cluster -Combined with other wound No -Current Size (cm) - Length 7 0.1 -Current Size (cm) - Width 10.5 0.1 -Current Size (cm) - Depth 0.1 0.1 -Total Square Cm 73.5 0.01 -Photo Taken Yes -Tunneling No -Undermining/Tunneling No -Circular Undermining No -Change in Wound Grade/Stage No -Exudate Amt Medium None Present -Exudate Type Serosanguineous -Wound Margin Distinct, Thickened Outline Attached -Granulation Amt Large (67-100%) None Present (0 %) -Granulation Quality Hyper- granulation, [place] -Slough/Fibrin No -Necrosis Amt None Present (0 Small (1-33%) %) -Necrotic Tissue Type Adherent Slough -Structure Exposed N/A N/A -Texture (Marie-wound Skin Appearance) Assessed, Scarring Scarring -Moisture (Marie-wound Skin Appearance) No Abnormality Dry/Scaly -Color (Marie-wound Skin Appearance) No Abnormality, Hemosiderin Assessed Staining -Temperature (Marie-wound Skin No Abnormality No Abnormality Appearance) (Pt Warm) (Pt Warm) -Tenderness on Palpation (Marie-wound No No Skin Appearance) -Ulcer Cleansing Soap and Water Soap and Water -Foul Odor after Cleansing No No -Anesthetic Used 4% Lidocaine 5% Lidocaine Solution Gel #18 Left medial LE cluster -Combined with other wound No -Current Size (cm) - Length 6.5 5.8 -Current Size (cm) - Width 4 10 -Current Size (cm) - Depth 0.1 0.2 -Total Square Cm 26.0 58.0 -Photo Taken Yes -Tunneling No -Undermining/Tunneling No -Circular Undermining No -Change in Wound Grade/Stage No -Exudate Amt Medium -Exudate Type Serosanguineous Serosanguineous -Wound Margin Distinct, Distinct, Outline Outline Attached Attached -Granulation Amt Large (67-100%) Medium (34-66%) -Granulation Quality [place] Red -Slough/Fibrin Yes -Necrosis Amt Small (1-33%) Medium (34-66%) -Necrotic Tissue Type Adherent Slough Adherent Slough -Structure Exposed N/A N/A -Texture (Marie-wound Skin Appearance) Assessed, Scarring Scarring -Moisture (Marie-wound Skin Appearance) Assessed Dry/Scaly -Color (Marie-wound Skin Appearance) Assessed, Hemosiderin Hemosiderin Staining Staining -Temperature (Marie-wound Skin No Abnormality No Abnormality Appearance) (Pt Warm) (Pt Warm) -Tenderness on Palpation (Marie-wound Yes No Skin Appearance) -Ulcer Cleansing Soap and Water Soap and Water -Foul Odor after Cleansing No No -Anesthetic Used 4% Lidocaine 5% Lidocaine Solution Gel Right Calf (cm) 42.6 Right Ankle (cm) 30 Left Calf (cm) 42.5 Left Ankle (cm) 27 WC - Nurse 2 - General Ulcer CM Notes Start: 03/11/23 09:44 Freq: Status: Active Protocol: Activity Type Activity Date Activity User E-sign Co-sign Detail Recorded Client Recorded Date Recorded By Document 03/11/23 10:24 MW [id number] 03/11/23 10:35 MW Edit Result 03/11/23 10:24 MW (1) [id number] 03/11/23 10:36 MW Document 03/18/23 10:28 MW [id number] 03/18/23 10:49 MW (1) #21 LEFT [place] - Debridement - Subq, 20sq cm No => Yes 03/11/23 03/18/23 10:24 10:28 Wound Center Nurse 2 #21 LEFT [place] -Time 10:25 10:32 -Correct Patient Yes Yes -Correct Side, Site, Position Yes Yes -Correct Procedure Yes Yes -Procedure Performed Yes Yes -Type of Procedure Debridement Debridement -Clinical Debridement Subcutaneous Subcutaneous -Tissue Removed Subcutaneous Subcutaneous -Post Debridement (cm) - Length 2.5 2.0 -Post Debridement (cm) - Width 1.9 1.0 -Post Debridement (cm) - Depth 0.1 0.1 -Total Square (Post) (cm) 4.75 2.00 -Area of Debridement (cm) - Length 2.5 2.0 -Area of Debridement (cm) - Width 1.9 1.0 -Total Square (Area) (cm) 4.75 2.00 -Tunneling No No -Undermining/Tunneling No No -Circular Undermining No No -Wound/Ulcer Outcome Not Healed Not Healed -Ulcer Cleansing Rinsed/ Rinsed/ Irrigated with Irrigated with Saline Saline -Foul Odor after Cleansing No No -Bioengineered Tissue No No -Bleeding Controlled with Pressure Pressure -Treatment Response Procedure Procedure Tolerated Well Tolerated Well -Offloading No No -Debridement - Subq, 1st 20sq cm Yes Yes #19 Left Lateral LE cluster -Time 10:24 10:33 -Correct Patient Yes Yes -Correct Side, Site, Position Yes Yes -Correct Procedure Yes Yes -Procedure Performed Yes Yes -Type of Procedure Debridement Debridement -Clinical Debridement Subcutaneous Subcutaneous -Tissue Removed Subcutaneous Subcutaneous -Post Debridement (cm) - Length 0.8 0.3 -Post Debridement (cm) - Width 0.7 0.3 -Post Debridement (cm) - Depth 0.1 0.1 -Total Square (Post) (cm) 0.56 0.09 -Area of Debridement (cm) - Length 0.8 0.3 -Area of Debridement (cm) - Width 0.7 0.3 -Total Square (Area) (cm) 0.56 0.09 -Tunneling No No -Undermining/Tunneling No No -Circular Undermining No No -Wound/Ulcer Outcome Not Healed Not Healed -Ulcer Cleansing Rinsed/ Wound Cleanser Irrigated with Saline -Foul Odor after Cleansing No No -Bioengineered Tissue No No -Bleeding Controlled with Pressure Pressure -Treatment Response Procedure Procedure Tolerated Well Tolerated Well -Offloading No No -Debridement - Subq, 1st 20sq cm No No #18 Left medial LE cluster -Time 10:24 10:34 -Correct Patient Yes Yes -Correct Side, Site, Position Yes Yes -Correct Procedure Yes Yes -Procedure Performed Yes Yes -Type of Procedure Debridement Debridement -Clinical Debridement Subcutaneous Subcutaneous -Tissue Removed Subcutaneous Subcutaneous -Post Debridement (cm) - Length 6.5 6.1 -Post Debridement (cm) - Width 9.1 9.5 -Post Debridement (cm) - Depth 0.2 0.2 -Total Square (Post) (cm) 59.15 57.95 -Area of Debridement (cm) - Length 6.5 6.4 -Area of Debridement (cm) - Width 9.1 9.5 -Total Square (Area) (cm) 59.15 60.80 -Tunneling No No -Undermining/Tunneling No No -Circular Undermining No No -Wound/Ulcer Outcome Not Healed Not Healed -Ulcer Cleansing Rinsed/ Rinsed/ Irrigated with Irrigated with Saline Saline -Foul Odor after Cleansing No No -Bioengineered Tissue Yes Yes -Type of Bioengineered Tissue Epifix Mesh Epifix Mesh -Expiration Date 01/09/28 01/09/28 -Product Lot Number [id number] -Percent Used 100 100 -Lot number of Saline Used [id number] -Bleeding Controlled with Pressure Pressure -Treatment Response Procedure Procedure Tolerated Well Tolerated Well -Offloading No No -Debridement - Subq, 1st 20sq cm No No -Apply Skin Sub - 1st 25 sq cm - Legs 1 1 -Epifix Mesh (per sq cm) 11 11 Pain Scale: 0-10 Numeric Is Patient Pain Free? Yes Yes - Nurse 3 - General Ulcer D/C NN Start: 03/11/23 09:44 Freq: Status: Active Protocol: Activity Type Activity Date Activity User E-sign Co-sign Detail Recorded Client Recorded Date Recorded By Document 03/11/23 10:58 RB [id number] 03/11/23 10:59 RB Document 03/18/23 11:07 RB [id number] 03/18/23 11:09 RB 03/11/23 03/18/23 10:58 11:07 Wound Care Center Nurse 3 #21 LEFT [place] -Ulcer Cleansing Rinsed/ Irrigated with Saline -Primary Dressing Applied Aquacel Extra Aquacel Extra -Other Dressing abd -Primary Dressing Covered/Secured with Dry Gauze,Dry Dry Gauze,Dry Gauze & Roll Gauze & Roll Gauze,Secured Gauze,Secured with Tape with Tape -Aquacel Extra 2 1 #19 Left Lateral LE cluster -Other Dressing aquacel extra , aquacel extra/ abd abd -Primary Dressing Covered/Secured with Dry Gauze & Roll Gauze, Secured with Tape #18 Left medial LE cluster -Ulcer Cleansing Rinsed/ Irrigated with Saline -Other Dressing aquacel extra aquacel extra/ abd abd -Primary Dressing Covered/Secured with Dry Gauze & Dry Gauze & Roll Gauze, Roll Gauze, Secured with Secured with Tape Tape Right -Tubular Bandage Single Layer -Size of Tubigrip Used Size E -Size E ($) 1 Left -Tubular Bandage Single Layer -Size of Tubigrip Used Size E -Size E ($) 1 Treatment Response Procedure Procedure Tolerated Well Tolerated Well Pain Scale: 0-10 Numeric Is Patient Pain Free? Yes Yes - Visit Discharge Discharge Condition Stable Stable Ambulatory Status Ambulatory, Ambulatory, Walker Walker Transportation Private Auto [facility] transport Medication Reconcilliation completed & No No provided to patient/care provider Clinical Summary of Care Provided Yes Yes Additional Wound Wound debrided: left medial LE cluster Laterality: Left Type of Debridement: Excisional debridement Anesthesia Used: 4% Lidocaine Solution and 5% Lidocaine Gel Depth: Down to and including healthy tissue and in the subcutaneous layer Percentage of wound debrided: 100 Instrument Used: 5mm curette Tissue Removed: yellow slough, devitalized tissue Severity: Fat Layer Exposed Amount of bleeding with debridement: Mild Bleeding Controlled with: Compression and gauze Patient tolerated procedure: Patient tolerated procedure well Additional Wound Wound debrided: left [place] Laterality: Left Type of Debridement: Excisional debridement Anesthesia Used: 4% Lidocaine Solution and 5% Lidocaine Gel Depth: Down to and including healthy tissue and in the subcutaneous layer Percentage of wound debrided: 100 Instrument Used: 5mm curette Tissue Removed: Yellow slough, devitalized tissue Severity: Fat Layer Exposed Amount of bleeding with debridement: Mild Bleeding Controlled with: Compression and gauze Patient tolerated procedure: Patient tolerated procedure well Assessment/Plan Assessment/Plan (1) Ulcer of right lower extremity with fat layer exposed: CODE(S): L97.912 - Non-pressure chronic ulcer of unspecified part of right lower leg with fat layer exposed (2) Ulcer of left lower extremity with fat layer exposed: CODE(S): L97.922 - Non-pressure chronic ulcer of unspecified part of left lower leg with fat layer exposed (3) Venous insufficiency: CODE(S): I87.2 - Venous insufficiency (chronic) (peripheral) (4) Edema: CODE(S): R60.9 - Edema, unspecified QUALIFIERS: Edema type: unspecified Qualified Code(s): R60.9 - Edema, unspecified (5) History of CVA (cerebrovascular accident): CODE(S): Z86.73 - Personal history of transient ischemic attack (TIA), and cerebral infarction without residual deficits (6) Venous ulcer of left lower extremity with varicose veins: CODE(S): I83.029 - Varicose veins of left lower extremity with ulcer of unspecified site (7) Venous ulcer of both lower extremities with varicose veins: CODE(S): I83.019 - Varicose veins of right lower extremity with ulcer of unspecified site; I83.029 - Varicose veins of left lower extremity with ulcer of unspecified site (8) Venous ulcers of both lower extremities: CODE(S): I87.2 - Venous insufficiency (chronic) (peripheral) (9) Lymphedema: CODE(S): I89.0 - Lymphedema, not elsewhere classified PLAN: Plan Debridement performed today in clinic as annotated above. At home wound-care instructions: Epifix was applied to ulcers per sheet metal pattern cutter guidelines and covered with adaptic touch secured with steri-strips and will apply Aquacel Extra as secondary dressing to ulcers, cover with ABD and wrap with gauze and use compression with tubigrips and continue lasix 3 tabs BID. Epifix #3 applied today. Off-loading: The patient was instructed to avoid pressure and friction on the affected areas. Reposition every 2 hours at minimum. Avoid prolonged standing and/or dangling of legs. When seated, feet should be elevated at chest level. Frequent ambulation is encouraged. Encouraged lymphedema pump use. Diet: Patient encouraged to increase protein intake while taking caution to avoid high carbohydrate and/or sugar intake. Labs/cultures/imaging: Follow-up: Return in 1 week for wound care follow up and have secondary dressing changed by home health Tuesday and Tuesday. Return sooner or report to the emergency room should symptoms worsen, or new symptoms arise. Note: [employer] speech recognition home theater experience expert software was used to create portions of this document. Sound-alike and misspelled words, as well as other home theater experience expert errors may be contained in the documentation.
[2023-03-25 11:57] VITALS: BP 100/62; PULSE 65; TEMP 36.1
--- NOTE | 2023-03-25 14:21 | PN.PCM_ITS ---
History of Present Illness Date of Service: 03/25/23 Chief Complaint: venous ulcers of left lower extremity History of Wound: Mauricio is a 67 yo gentleman who is here today for evaluation of ulcers to to his bilateral lower legs. He has been treated multiple times in the past at the wound healing center for similar ulcers. The left LE ulcer started after he developed increased swelling and blisters of left leg in October and the right leg started sometime at the end of October. He was seen at PCP's office a culture was taken and it was resistant to several antibiotics. He was treated initially with Levaquin but had myalgias and then was treated with doxycycline which he finished 2 days ago. He denies improvement and is having swelling to his left calf and thigh. He has been having swelling to both lower extremities for many years and it has worsened over the last few months. He has not been compliant with compression. He has had increased pain especially in the left leg. He has clear yellow drainage and redness without odor or warmth. He is anti- coagulated on coumadin. He has been washing with Dial soap and witch ifrah. He had been using Collagen at times and using Calcium Alginate and covering with ABD pads during October. He was treated with 3M compression and Aquacel Ag. He was referred to the wound center for ongoing treatment. His ulcers have moderate to heavy drainage. He was recently hospitalized for cellulitis and edema for the last 10 days. He was in the hospital from 11/30/22 until 12/09/22 for treatment of cellulitis and edema. He underwent treatment with Vancomycin and IV lasix and compression. Discharged on 12/09/22 and is currently in the [facility]illed [facility]. He returned to his assisted living apartment on Tuesday12/21/22. Subjective Subjective He tolerated treatment with Epifix and Aquacel Extra and ABDs and tubigrips. His left lower leg ulcers are slightly improved this week but edema is about the same. Denies fever, chills, increased pain or increased drainage. Objective Data Objective Data Vital Signs: Vital Signs Temp Pulse Resp BP 96.9 F L 65 20 H 100/62 03/25/23 11:57 03/25/23 11:57 03/18/23 09:41 03/25/23 11:57 Physical Exam Const alert, oriented x3 and no apparent distress General Appearance: cooperative and comfortable HEENT normocephalic and head/scalp atraumatic Lymph Lymphatic: lymphedema moderate Resp normal respiratory effort Effort and Inspection: able to speak in complete sentences Cardio regular rate and regular rhythm Extremity General Extremity: edema bilateral lower extremity Details: severe Skin Wounds: wounds noted Wound Narrative: as in clinical panel Psych mental status grossly normal, thought process normal, cooperative and affect normal Debridement Note Debridement Note Wound debrided: Left lateral LE cluster Laterality: Left Type of Debridement: Excisional debridement Anesthesia Used: 4% Lidocaine Solution Depth: Down to and including healthy tissue and in the subcutaneous layer Percentage of wound debrided: 100 Instrument Used: 5mm curette Tissue Removed: Yellow slough, devitalized tissue Severity: Fat Layer Exposed Amount of bleeding with debridement: Mild Bleeding Controlled with: Compression and gauze Patient tolerated procedure: Patient tolerated procedure well Post-Debridement Measurements and Additional Note: Post-Debridement Measurements/Treatment - Nurse 1 - General Ulcer Assessment Start: 03/11/23 09:44 Freq: Status: Active Protocol: ONDINA Activity Type Activity Date Activity User E-sign Co-sign Detail Recorded Client Recorded Date Recorded By Document 03/11/23 09:44 AK [id number] 03/11/23 09:46 AK Document 03/18/23 09:41 DL [id number] 03/18/23 09:52 DL Document 03/25/23 11:57 PA [id number] 03/25/23 12:00 AK 03/11/23 03/18/23 03/25/23 09:44 09:41 11:57 - Today's Visit Information Type of service Follow-up Visit Follow-up Visit Follow-up Visit (Physician/COMMISSARY WORKER (Physician/COMMISSARY WORKER (Physician/COMMISSARY WORKER ) ) ) Arrival Mode Ambulatory Ambulatory, Ambulatory, Walker Walker Transfer Assistance None Patient Identification Verified (Name & No Yes Yes ) Patient Requires Transmission-Based No No No Precautions Vital Signs Temperature (97.8 F-99.1 F) 97.4 F L 97.2 F L 96.9 F L Temperature Source Temporal Temporal Temporal Pulse Rate (60-100) 77 64 65 Pulse Location Monitor Monitor Monitor Respiratory Rate (12-18) 20 H Respiratory rate source Observation Blood Pressure (90/60-120/80) 126/77 H 101/60 100/62 Blood Pressure Mean (mm Hg) 93 73 74 Source Monitor Monitor Monitor History Since Last Visit- (Skip if this is Patient's initial visit) Have you changed medications since your No No No last visit? Any new allergies or adverse reactions No No No Had a fall/change in ADL's that may No No No increase risk of falls Signs or symptoms of abuse and/or No No No neglect since last visit Have you been in the hospital since your No No No last visit? Has dressing in place as prescribed Yes Yes No Has compression in place as prescribed N/A Yes Yes Has offloadiing in place as prescribed N/A N/A Yes Experienced any changes in pain level or No No No management Left Footwear Regular Shoe Regular Shoe Right Footwear Regular Shoe Regular Shoe Pain Scale: 0-10 Numeric Is Patient Pain Free? Yes Yes No WC - Nurse 1 - General Ulcer Measurement Start: 03/11/23 09:44 Freq: Status: Active Protocol: Activity Type Activity Date Activity User E-sign Co-sign Detail Recorded Client Recorded Date Recorded By Document 03/11/23 09:44 AK [id number] 03/11/23 09:46 AK Document 03/18/23 09:41 DL [id number] 03/18/23 09:52 DL Document 03/25/23 11:57 AK [id number] 03/25/23 12:00 AK 03/11/23 03/18/23 03/25/23 09:44 09:41 11:57 Wound Center Nurse 1 #21 LEFT [place] -Combined with other wound No -Current Size (cm) - Length 2.2 5 -Current Size (cm) - Width 0.8 3 -Current Size (cm) - Depth 0.1 0.1 -Total Square Cm 1.76 15 -Photo Taken No -Tunneling No -Undermining/Tunneling No -Circular Undermining No -Change in Wound Grade/Stage No -Exudate Amt Small Large -Exudate Type Serosanguineous Serosanguineous -Wound Margin Distinct, Distinct, Outline Outline Attached Attached -Granulation Amt Large (67-100%) Large (67-100%) -Granulation Quality Red Red -Slough/Fibrin Yes -Necrosis Amt Small (1-33%) Small (1-33%) -Necrotic Tissue Type Adherent Slough Adherent Slough -Structure Exposed N/A N/A -Texture (Marie-wound Skin Appearance) Scarring No Abnormality, Assessed -Moisture (Marie-wound Skin Appearance) Dry/Scaly No Abnormality, Assessed -Color (Marie-wound Skin Appearance) Hemosiderin No Abnormality, Staining Assessed -Temperature (Marie-wound Skin No Abnormality No Abnormality Appearance) (Pt Warm) (Pt Warm) -Tenderness on Palpation (Marie-wound No No Skin Appearance) -Ulcer Cleansing Not Cleansed Rinsed/ Irrigated with Saline -Foul Odor after Cleansing No No -Anesthetic Used 5% Lidocaine 5% Lidocaine Gel Gel #19 Left Lateral LE cluster -Combined with other wound No No -Current Size (cm) - Length 7 0.1 0.5 -Current Size (cm) - Width 10.5 0.1 0.5 -Current Size (cm) - Depth 0.1 0.1 0.1 -Total Square Cm 73.5 0.01 0.25 -Photo Taken Yes No -Tunneling No No -Undermining/Tunneling No No -Circular Undermining No No -Change in Wound Grade/Stage No No -Exudate Amt Medium None Present Medium -Exudate Type Serosanguineous Serosanguineous -Wound Margin Distinct, Thickened Distinct, Outline Outline Attached Attached -Granulation Amt Large (67-100%) None Present (0 Large (67-100%) %) -Granulation Quality Hyper- Red granulation, [place] -Slough/Fibrin No Yes -Necrosis Amt None Present (0 Small (1-33%) Small (1-33%) %) -Necrotic Tissue Type Adherent Slough Adherent Slough -Structure Exposed N/A N/A N/A -Texture (Marie-wound Skin Appearance) Assessed, Scarring No Abnormality, Scarring Assessed -Moisture (Marie-wound Skin Appearance) No Abnormality Dry/Scaly No Abnormality, Assessed -Color (Marie-wound Skin Appearance) No Abnormality, Hemosiderin No Abnormality, Assessed Staining Assessed -Temperature (Marie-wound Skin No Abnormality No Abnormality No Abnormality Appearance) (Pt Warm) (Pt Warm) (Pt Warm) -Tenderness on Palpation (Marie-wound No No No Skin Appearance) -Ulcer Cleansing Soap and Water Soap and Water Rinsed/ Irrigated with Saline -Foul Odor after Cleansing No No No -Anesthetic Used 4% Lidocaine 5% Lidocaine 5% Lidocaine Solution Gel Gel #18 Left medial LE cluster -Combined with other wound No No -Current Size (cm) - Length 6.5 5.8 5.8 -Current Size (cm) - Width 4 10 10 -Current Size (cm) - Depth 0.1 0.2 0.2 -Total Square Cm 26.0 58.0 58.0 -Photo Taken Yes No -Tunneling No No -Undermining/Tunneling No No -Circular Undermining No No -Change in Wound Grade/Stage No No -Exudate Amt Medium Medium -Exudate Type Serosanguineous Serosanguineous Serosanguineous -Wound Margin Distinct, Distinct, Distinct, Outline Outline Outline Attached Attached Attached -Granulation Amt Large (67-100%) Medium (34-66%) Medium (34-66%) -Granulation Quality [place] Red Red -Slough/Fibrin Yes Yes -Necrosis Amt Small (1-33%) Medium (34-66%) Medium (34-66%) -Necrotic Tissue Type Adherent Slough Adherent Slough Adherent Slough -Structure Exposed N/A N/A N/A -Texture (Marie-wound Skin Appearance) Assessed, Scarring No Abnormality, Scarring Assessed -Moisture (Marie-wound Skin Appearance) Assessed Dry/Scaly No Abnormality, Assessed -Color (Marie-wound Skin Appearance) Assessed, Hemosiderin No Abnormality, Hemosiderin Staining Assessed Staining -Temperature (Marie-wound Skin No Abnormality No Abnormality No Abnormality Appearance) (Pt Warm) (Pt Warm) (Pt Warm) -Tenderness on Palpation (Marie-wound Yes No No Skin Appearance) -Ulcer Cleansing Soap and Water Soap and Water -Foul Odor after Cleansing No No No -Anesthetic Used 4% Lidocaine 5% Lidocaine 5% Lidocaine Solution Gel Gel Right Calf (cm) 42.6 Right Ankle (cm) 30 Left Calf (cm) 42.5 Left Ankle (cm) 27 WC - Nurse 2 - General Ulcer CM Notes Start: 03/11/23 09:44 Freq: Status: Active Protocol: Activity Type Activity Date Activity User E-sign Co-sign Detail Recorded Client Recorded Date Recorded By Document 03/11/23 10:24 MW [id number] 03/11/23 10:35 MW Edit Result 03/11/23 10:24 MW (1) [id number] 03/11/23 10:36 MW Document 03/18/23 10:28 MW [id number] 03/18/23 10:49 MW Document 03/25/23 11:16 MW [id number] 03/25/23 11:31 MW (1) #21 LEFT [place] - Debridement - Subq, 1st 20sq cm No => Yes 03/11/23 03/18/23 03/25/23 10:24 10:28 11:16 Wound Center Nurse 2 #21 LEFT [place] -Time 10:25 10:32 11:17 -Correct Patient Yes Yes Yes -Correct Side, Site, Position Yes Yes Yes -Correct Procedure Yes Yes Yes -Procedure Performed Yes Yes Yes -Type of Procedure Debridement Debridement Debridement -Clinical Debridement Subcutaneous Subcutaneous Subcutaneous -Tissue Removed Subcutaneous Subcutaneous Subcutaneous -Post Debridement (cm) - Length 2.5 2.0 3.0 -Post Debridement (cm) - Width 1.9 1.0 1.0 -Post Debridement (cm) - Depth 0.1 0.1 0.1 -Total Square (Post) (cm) 4.75 2.00 3.00 -Area of Debridement (cm) - Length 2.5 2.0 3.0 -Area of Debridement (cm) - Width 1.9 1.0 1.0 -Total Square (Area) (cm) 4.75 2.00 3.00 -Tunneling No No No -Undermining/Tunneling No No No -Circular Undermining No No No -Wound/Ulcer Outcome Not Healed Not Healed Not Healed -Ulcer Cleansing Rinsed/ Rinsed/ Rinsed/ Irrigated with Irrigated with Irrigated with Saline Saline Saline -Foul Odor after Cleansing No No No -Bioengineered Tissue No No No -Bleeding Controlled with Pressure Pressure Pressure -Treatment Response Procedure Procedure Procedure Tolerated Well Tolerated Well Tolerated Well -Offloading No No No -Debridement - Subq, 1st 20sq cm Yes Yes Yes #19 Left Lateral LE cluster -Time 10:24 10:33 11:19 -Correct Patient Yes Yes Yes -Correct Side, Site, Position Yes Yes Yes -Correct Procedure Yes Yes Yes -Procedure Performed Yes Yes Yes -Type of Procedure Debridement Debridement Debridement -Clinical Debridement Subcutaneous Subcutaneous Subcutaneous -Tissue Removed Subcutaneous Subcutaneous Subcutaneous -Post Debridement (cm) - Length 0.8 0.3 0.9 -Post Debridement (cm) - Width 0.7 0.3 0.3 -Post Debridement (cm) - Depth 0.1 0.1 0.1 -Total Square (Post) (cm) 0.56 0.09 0.27 -Area of Debridement (cm) - Length 0.8 0.3 0.9 -Area of Debridement (cm) - Width 0.7 0.3 0.3 -Total Square (Area) (cm) 0.56 0.09 0.27 -Tunneling No No No -Undermining/Tunneling No No No -Circular Undermining No No No -Wound/Ulcer Outcome Not Healed Not Healed Not Healed -Ulcer Cleansing Rinsed/ Wound Cleanser Rinsed/ Irrigated with Irrigated with Saline Saline -Foul Odor after Cleansing No No No -Bioengineered Tissue No No No -Bleeding Controlled with Pressure Pressure Pressure -Treatment Response Procedure Procedure Procedure Tolerated Well Tolerated Well Tolerated Well -Offloading No No No -Debridement - Subq, 1st 20sq cm No No No #18 Left medial LE cluster -Time 10:24 10:34 11:20 -Correct Patient Yes Yes Yes -Correct Side, Site, Position Yes Yes Yes -Correct Procedure Yes Yes Yes -Procedure Performed Yes Yes Yes -Type of Procedure Debridement Debridement Debridement -Clinical Debridement Subcutaneous Subcutaneous Subcutaneous -Tissue Removed Subcutaneous Subcutaneous Subcutaneous -Post Debridement (cm) - Length 6.5 6.1 5.8 -Post Debridement (cm) - Width 9.1 9.5 9.0 -Post Debridement (cm) - Depth 0.2 0.2 0.2 -Total Square (Post) (cm) 59.15 57.95 52.20 -Area of Debridement (cm) - Length 6.5 6.4 5.8 -Area of Debridement (cm) - Width 9.1 9.5 9.0 -Total Square (Area) (cm) 59.15 60.80 52.20 -Tunneling No No No -Undermining/Tunneling No No No -Circular Undermining No No No -Wound/Ulcer Outcome Not Healed Not Healed Not Healed -Ulcer Cleansing Rinsed/ Rinsed/ Rinsed/ Irrigated with Irrigated with Irrigated with Saline Saline Saline -Foul Odor after Cleansing No No No -Bioengineered Tissue Yes Yes Yes -Type of Bioengineered Tissue Epifix Mesh Epifix Mesh Epifix Mesh -Expiration Date 01/09/28 01/09/28 01/09/28 -Product Lot Number [id number] -Percent Used 100 100 100 -Lot number of Saline Used [id number] -Bleeding Controlled with Pressure Pressure Pressure -Treatment Response Procedure Procedure Procedure Tolerated Well Tolerated Well Tolerated Well -Offloading No No No -Debridement - Subq, 1st 20sq cm No No No -Apply Skin Sub - 1st 25 sq cm - Legs 1 1 1 -Epifix Mesh (per sq cm) 11 11 11 Pain Scale: 0-10 Numeric Is Patient Pain Free? Yes Yes Yes WC - Nurse 3 - General Ulcer D/C NN Start: 03/11/23 09:44 Freq: Status: Active Protocol: Activity Type Activity Date Activity User E-sign Co-sign Detail Recorded Client Recorded Date Recorded By Document 03/11/23 10:58 RB [id number] 03/11/23 10:59 RB Document 03/18/23 11:07 RB [id number] 03/18/23 11:09 RB Document 03/25/23 13:11 RB [id number] 03/25/23 13:13 RB 03/11/23 03/18/23 03/25/23 10:58 11:07 13:11 Wound Care Center Nurse 3 #21 LEFT [place] -Ulcer Cleansing Rinsed/ Irrigated with Saline -Primary Dressing Applied Aquacel Extra Aquacel Extra Aquacel Extra -Other Dressing abd ABD -Primary Dressing Covered/Secured with Dry Gauze,Dry Dry Gauze,Dry Dry Gauze & Gauze & Roll Gauze & Roll Roll Gauze Gauze,Secured Gauze,Secured with Tape with Tape -Aquacel Extra 2 1 1 #19 Left Lateral LE cluster -Other Dressing aquacel extra , aquacel extra/ aquacel extra/ abd abd ABD -Primary Dressing Covered/Secured with Dry Gauze & Dry Gauze & Roll Gauze, Roll Gauze, Secured with Secured with Tape Tape #18 Left medial LE cluster -Ulcer Cleansing Rinsed/ Irrigated with Saline -Other Dressing aquacel extra aquacel extra/ aquacel extra/ abd abd ABD -Primary Dressing Covered/Secured with Dry Gauze & Dry Gauze & Roll Gauze, Roll Gauze, Secured with Secured with Tape Tape Right -Tubular Bandage Single Layer -Size of Tubigrip Used Size E -Size E ($) 1 -Other pt own tubigrip single layer size E Left -Tubular Bandage Single Layer Single Layer -Size of Tubigrip Used Size E Size E -Size E ($) 1 1 Treatment Response Procedure Procedure Tolerated Well Tolerated Well Pain Scale: 0-10 Numeric Is Patient Pain Free? Yes Yes Yes WC - Visit Discharge Discharge Condition Stable Stable Stable Ambulatory Status Ambulatory, Ambulatory, Ambulatory, Walker Walker Walker Transportation Private Auto [facility] transport Private Auto Medication Reconcilliation completed & No No No provided to patient/care provider Clinical Summary of Care Provided Yes Yes Yes Additional Wound Wound debrided: left medial LE cluster Laterality: Left Type of Debridement: Excisional debridement Anesthesia Used: 4% Lidocaine Solution and 5% Lidocaine Gel Depth: Down to and including healthy tissue and in the subcutaneous layer Percentage of wound debrided: 100 Instrument Used: 5mm curette Tissue Removed: yellow slough, devitalized tissue Severity: Fat Layer Exposed Amount of bleeding with debridement: Mild Bleeding Controlled with: Compression and gauze Patient tolerated procedure: Patient tolerated procedure well Additional Wound Wound debrided: left [place] Laterality: Left Type of Debridement: Excisional debridement Anesthesia Used: 4% Lidocaine Solution and 5% Lidocaine Gel Depth: Down to and including healthy tissue and in the subcutaneous layer Percentage of wound debrided: 100 Instrument Used: 5mm curette Tissue Removed: Yellow slough, devitalized tissue Severity: Fat Layer Exposed Amount of bleeding with debridement: Mild Bleeding Controlled with: Compression and gauze Patient tolerated procedure: Patient tolerated procedure well Assessment/Plan Assessment/Plan (1) Ulcer of right lower extremity with fat layer exposed: CODE(S): L97.912 - Non-pressure chronic ulcer of unspecified part of right lower leg with fat layer exposed (2) Ulcer of left lower extremity with fat layer exposed: CODE(S): L97.922 - Non-pressure chronic ulcer of unspecified part of left lower leg with fat layer exposed (3) Venous insufficiency: CODE(S): I87.2 - Venous insufficiency (chronic) (peripheral) (4) Edema: CODE(S): R60.9 - Edema, unspecified QUALIFIERS: Edema type: unspecified Qualified Code(s): R60.9 - Edema, unspecified (5) History of CVA (cerebrovascular accident): CODE(S): Z86.73 - Personal history of transient ischemic attack (TIA), and cerebral infarction without residual deficits (6) Venous ulcer of left lower extremity with varicose veins: CODE(S): I83.029 - Varicose veins of left lower extremity with ulcer of unspecified site (7) Venous ulcer of both lower extremities with varicose veins: CODE(S): I83.019 - Varicose veins of right lower extremity with ulcer of unspecified site; I83.029 - Varicose veins of left lower extremity with ulcer of unspecified site (8) Venous ulcers of both lower extremities: CODE(S): I87.2 - Venous insufficiency (chronic) (peripheral) (9) Lymphedema: CODE(S): I89.0 - Lymphedema, not elsewhere classified PLAN: Plan Debridement performed today in clinic as annotated above. At home wound-care instructions: Epifix was applied to ulcers per negative turner guidelines and covered with adaptic touch secured with steri-strips and will apply Aquacel Extra as secondary dressing to ulcers, cover with ABD and wrap with gauze and use compression with tubigrips and continue lasix 3 tabs BID. Epifix #4 applied today. Off-loading: The patient was instructed to avoid pressure and friction on the affected areas. Reposition every 2 hours at minimum. Avoid prolonged standing and/or dangling of legs. When seated, feet should be elevated at chest level. Frequent ambulation is encouraged. Encouraged lymphedema pump use. Diet: Patient encouraged to increase protein intake while taking caution to avoid high carbohydrate and/or sugar intake. Labs/cultures/imaging: Follow-up: Return in 1 week for wound care follow up and have secondary dressing changed by home health Tuesday and Tuesday. Return sooner or report to the emergency room should symptoms worsen, or new symptoms arise. Note: The [employer] speech recognition belt tender software was used to create portions of this document. Sound-alike and misspelled words, as well as other belt tender errors may be contained in the documentation.
[2023-04-01 10:17] VITALS: BP 104/64; PULSE 61; RESP 18; TEMP 36.1
--- NOTE | 2023-04-01 15:45 | PN.PCM_ITS ---
History of Present Illness Date of Service: 04/01/23 Chief Complaint: venous ulcers of left lower extremity History of Wound: Mauricio is a 67 yo gentleman who is here today for evaluation of ulcers to to his bilateral lower legs. He has been treated multiple times in the past at the wound healing center for similar ulcers. The left LE ulcer started after he developed increased swelling and blisters of left leg in October and the right leg started sometime at the end of October. He was seen at PCP's office a culture was taken and it was resistant to several antibiotics. He was treated initially with Levaquin but had myalgias and then was treated with doxycycline which he finished 2 days ago. He denies improvement and is having swelling to his left calf and thigh. He has been having swelling to both lower extremities for many years and it has worsened over the last few months. He has not been compliant with compression. He has had increased pain especially in the left leg. He has clear yellow drainage and redness without odor or warmth. He is anti- coagulated on coumadin. He has been washing with Dial soap and witch ifrah. He had been using Collagen at times and using Calcium Alginate and covering with ABD pads during October. He was treated with 3M compression and Aquacel Ag. He was referred to the wound center for ongoing treatment. His ulcers have moderate to heavy drainage. He was recently hospitalized for cellulitis and edema for the last 10 days. He was in the hospital from 11/30/22 until 12/09/22 for treatment of cellulitis and edema. He underwent treatment with Vancomycin and IV lasix and compression. Discharged on 12/09/22 and is [facility] in [facility] He returned to his assisted living apartment on Tuesday12/21/22. Subjective Subjective He tolerated treatment with Epifix and Aquacel Extra and ABDs and tubigrips. His left lower leg ulcers are slightly improved this week but edema is about the same. Denies fever, chills, increased pain or increased drainage. Objective Data Objective Data Vital Signs: Vital Signs Temp Pulse Resp BP 97 F L 61 18 104/64 04/01/23 10:17 04/01/23 10:17 04/01/23 10:17 04/01/23 10:17 Physical Exam Const alert, oriented x3 and no apparent distress General Appearance: cooperative and comfortable HEENT normocephalic and head/scalp atraumatic Lymph Lymphatic: lymphedema moderate Resp normal respiratory effort Effort and Inspection: able to speak in complete sentences Cardio regular rate and regular rhythm Extremity General Extremity: edema bilateral lower extremity Details: severe Skin Wounds: wounds noted Wound Narrative: as in clinical panel Psych mental status grossly normal, thought process normal, cooperative and affect normal Debridement Note Debridement Note Wound debrided: Left lateral LE cluster Laterality: Left Type of Debridement: Excisional debridement Anesthesia Used: 4% Lidocaine Solution Depth: Down to and including healthy tissue and in the subcutaneous layer Percentage of wound debrided: 100 Instrument Used: 5mm curette Tissue Removed: Yellow slough, devitalized tissue Severity: Fat Layer Exposed Amount of bleeding with debridement: Mild Bleeding Controlled with: Compression and gauze Patient tolerated procedure: Patient tolerated procedure well Post-Debridement Measurements and Additional Note: Post-Debridement Measurements/Treatment - Nurse 1 - General Ulcer Assessment Start: 03/11/23 09:44 Freq: Status: Active Protocol: ONDINA Activity Type Activity Date Activity User E-sign Co-sign Detail Recorded Client Recorded Date Recorded By Document 03/11/23 09:44 AK [id number] 03/11/23 09:46 AK Document 03/18/23 09:41 DL [id number] 03/18/23 09:52 DL Document 03/25/23 11:57 AK [id number] 03/25/23 12:00 AK Document 04/01/23 10:17 RB [id number] 04/01/23 10:29 RB 03/11/23 03/18/23 03/25/23 09:44 09:41 11:57 - Today's Visit Information Type of service Follow-up Visit Follow-up Visit Follow-up Visit (Physician/MEAT APPRENTICE (Physician/MEAT APPRENTICE (Physician/MEAT APPRENTICE ) ) ) Arrival Mode Ambulatory Ambulatory, Ambulatory, Walker Walker Transfer Assistance None Patient Identification Verified (Name & No Yes Yes ) Patient Requires Transmission-Based No No No Precautions Vital Signs Temperature (97.8 F-99.1 F) 97.4 F L 97.2 F L 96.9 F L Temperature Source Temporal Temporal Temporal Pulse Rate (60-100) 77 64 65 Pulse Location Monitor Monitor Monitor Respiratory Rate (12-18) 20 H Respiratory rate source Observation Blood Pressure (90/60-120/80) 126/77 H 101/60 100/62 Blood Pressure Mean (mm Hg) 93 73 74 Source Monitor Monitor Monitor Position Blood Pressure Location History Since Last Visit- (Skip if this is Patient's initial visit) Have you changed medications since your No No No last visit? Any new allergies or adverse reactions No No No Had a fall/change in ADL's that may No No No increase risk of falls Signs or symptoms of abuse and/or No No No neglect since last visit Have you been in the hospital since your No No No last visit? Has dressing in place as prescribed Yes Yes No Has compression in place as prescribed N/A Yes Yes Has offloadiing in place as prescribed N/A N/A Yes Experienced any changes in pain level or No No No management Left Footwear Regular Shoe Regular Shoe Right Footwear Regular Shoe Regular Shoe Pain Scale: 0-10 Numeric Is Patient Pain Free? Yes Yes No 04/01/23 10:17 WC - Today's Visit Information Type of service Follow-up Visit (Physician/MEAT APPRENTICE ) Arrival Mode Ambulatory, Walker Transfer Assistance None Patient Identification Verified (Name & Yes ) Patient Requires Transmission-Based No Precautions Vital Signs Temperature (97.8 F-99.1 F) 97 F L Temperature Source Temporal Pulse Rate (60-100) 61 Pulse Location Monitor Respiratory Rate (12-18) 18 Respiratory rate source Observation Blood Pressure (90/60-120/80) 104/64 Blood Pressure Mean (mm Hg) 77 Source Monitor Position Semi-Fowlers Blood Pressure Location Left Arm History Since Last Visit- (Skip if this is Patient's initial visit) Have you changed medications since your No last visit? Any new allergies or adverse reactions No Had a fall/change in ADL's that may No increase risk of falls Signs or symptoms of abuse and/or No neglect since last visit Have you been in the hospital since your No last visit? Has dressing in place as prescribed Yes Has compression in place as prescribed Yes Has offloadiing in place as prescribed No Experienced any changes in pain level or No management Left Footwear Right Footwear Pain Scale: 0-10 Numeric Is Patient Pain Free? Yes WC - Nurse 1 - General Ulcer Measurement Start: 03/11/23 09:44 Freq: Status: Active Protocol: Activity Type Activity Date Activity User E-sign Co-sign Detail Recorded Client Recorded Date Recorded By Document 03/11/23 09:44 AK [id number] 03/11/23 09:46 AK Document 03/18/23 09:41 DL [id number] 03/18/23 09:52 DL Document 03/25/23 11:57 AK [id number] 03/25/23 12:00 AK Document 04/01/23 10:17 RB [id number] 04/01/23 10:29 RB 03/11/23 03/18/23 03/25/23 09:44 09:41 11:57 Wound Center Nurse 1 #21 LEFT [place] -Combined with other wound No -Current Size (cm) - Length 2.2 5 -Current Size (cm) - Width 0.8 3 -Current Size (cm) - Depth 0.1 0.1 -Total Square Cm 1.76 15 -Photo Taken No -Tunneling No -Undermining/Tunneling No -Circular Undermining No -Change in Wound Grade/Stage No -Exudate Amt Small Large -Exudate Type Serosanguineous Serosanguineous -Wound Margin Distinct, Distinct, Outline Outline Attached Attached -Granulation Amt Large (67-100%) Large (67-100%) -Granulation Quality Red Red -Slough/Fibrin Yes -Necrosis Amt Small (1-33%) Small (1-33%) -Necrotic Tissue Type Adherent Slough Adherent Slough -Structure Exposed N/A N/A -Texture (Marie-wound Skin Appearance) Scarring No Abnormality, Assessed -Moisture (Marie-wound Skin Appearance) Dry/Scaly No Abnormality, Assessed -Color (Marie-wound Skin Appearance) Hemosiderin No Abnormality, Staining Assessed -Temperature (Maire-wound Skin No Abnormality No Abnormality Appearance) (Pt Warm) (Pt Warm) -Tenderness on Palpation (Marie-wound No No Skin Appearance) -Ulcer Cleansing Not Cleansed Rinsed/ Irrigated with Saline -Foul Odor after Cleansing No No -Anesthetic Used 5% Lidocaine 5% Lidocaine Gel Gel #19 Left Lateral LE cluster -Combined with other wound No No -Current Size (cm) - Length 7 0.1 0.5 -Current Size (cm) - Width 10.5 0.1 0.5 -Current Size (cm) - Depth 0.1 0.1 0.1 -Total Square Cm 73.5 0.01 0.25 -Photo Taken Yes No -Tunneling No No -Undermining/Tunneling No No -Circular Undermining No No -Change in Wound Grade/Stage No No -Exudate Amt Medium None Present Medium -Exudate Type Serosanguineous Serosanguineous -Wound Margin Distinct, Thickened Distinct, Outline Outline Attached Attached -Granulation Amt Large (67-100%) None Present (0 Large (67-100%) %) -Granulation Quality Hyper- Red granulation, [place] -Slough/Fibrin No Yes -Necrosis Amt None Present (0 Small (1-33%) Small (1-33%) %) -Necrotic Tissue Type Adherent Slough Adherent Slough -Structure Exposed N/A N/A N/A -Texture (Marie-wound Skin Appearance) Assessed, Scarring No Abnormality, Scarring Assessed -Moisture (Marie-wound Skin Appearance) No Abnormality Dry/Scaly No Abnormality, Assessed -Color (Marie-wound Skin Appearance) No Abnormality, Hemosiderin No Abnormality, Assessed Staining Assessed -Temperature (Marie-wound Skin No Abnormality No Abnormality No Abnormality Appearance) (Pt Warm) (Pt Warm) (Pt Warm) -Tenderness on Palpation (Marie-wound No No No Skin Appearance) -Ulcer Cleansing Soap and Water Soap and Water Rinsed/ Irrigated with Saline -Foul Odor after Cleansing No No No -Anesthetic Used 4% Lidocaine 5% Lidocaine 5% Lidocaine Solution Gel Gel #18 Left medial LE cluster -Combined with other wound No No -Current Size (cm) - Length 6.5 5.8 5.8 -Current Size (cm) - Width 4 10 10 -Current Size (cm) - Depth 0.1 0.2 0.2 -Total Square Cm 26.0 58.0 58.0 -Photo Taken Yes No -Tunneling No No -Undermining/Tunneling No No -Circular Undermining No No -Change in Wound Grade/Stage No No -Exudate Amt Medium Medium -Exudate Type Serosanguineous Serosanguineous Serosanguineous -Wound Margin Distinct, Distinct, Distinct, Outline Outline Outline Attached Attached Attached -Granulation Amt Large (67-100%) Medium (34-66%) Medium (34-66%) -Granulation Quality [place] Red Red -Slough/Fibrin Yes Yes -Necrosis Amt Small (1-33%) Medium (34-66%) Medium (34-66%) -Necrotic Tissue Type Adherent Slough Adherent Slough Adherent Slough -Structure Exposed N/A N/A N/A -Texture (Marie-wound Skin Appearance) Assessed, Scarring No Abnormality, Scarring Assessed -Moisture (Marie-wound Skin Appearance) Assessed Dry/Scaly No Abnormality, Assessed -Color (Marie-wound Skin Appearance) Assessed, Hemosiderin No Abnormality, Hemosiderin Staining Assessed Staining -Temperature (Marie-wound Skin No Abnormality No Abnormality No Abnormality Appearance) (Pt Warm) (Pt Warm) (Pt Warm) -Tenderness on Palpation (Marie-wound Yes No No Skin Appearance) -Ulcer Cleansing Soap and Water Soap and Water -Foul Odor after Cleansing No No No -Anesthetic Used 4% Lidocaine 5% Lidocaine 5% Lidocaine Solution Gel Gel Lower Limb Edema Present Right Calf (cm) 42.6 Right Ankle (cm) 30 Left Calf (cm) 42.5 Left Ankle (cm) 27 04/01/23 10:17 Wound Center Nurse 1 #21 LEFT [place] -Combined with other wound No -Current Size (cm) - Length 1.4 -Current Size (cm) - Width 0.7 -Current Size (cm) - Depth 0.1 -Total Square Cm 0.98 -Photo Taken -Tunneling No -Undermining/Tunneling No -Circular Undermining No -Change in Wound Grade/Stage -Exudate Amt Medium -Exudate Type Serosanguineous -Wound Margin Distinct, Outline Attached -Granulation Amt Medium (34-66%) -Granulation Quality [place] -Slough/Fibrin Yes -Necrosis Amt Medium (34-66%) -Necrotic Tissue Type Adherent Slough -Structure Exposed N/A -Texture (Marie-wound Skin Appearance) Assessed -Moisture (Marie-wound Skin Appearance) Assessed -Color (Marie-wound Skin Appearance) Assessed -Temperature (Marie-wound Skin No Abnormality Appearance) (Pt Warm) -Tenderness on Palpation (Marie-wound No Skin Appearance) -Ulcer Cleansing Wound Cleanser -Foul Odor after Cleansing No -Anesthetic Used 5% Lidocaine Gel #19 Left Lateral LE cluster -Combined with other wound No -Current Size (cm) - Length 0.1 -Current Size (cm) - Width 0.1 -Current Size (cm) - Depth 0.1 -Total Square Cm 0.01 -Photo Taken -Tunneling No -Undermining/Tunneling No -Circular Undermining No -Change in Wound Grade/Stage -Exudate Amt Medium -Exudate Type Serosanguineous -Wound Margin Distinct, Outline Attached -Granulation Amt Medium (34-66%) -Granulation Quality [place] -Slough/Fibrin Yes -Necrosis Amt Medium (34-66%) -Necrotic Tissue Type Adherent Slough -Structure Exposed N/A -Texture (Marie-wound Skin Appearance) Assessed -Moisture (Marie-wound Skin Appearance) Assessed -Color (Marie-wound Skin Appearance) Assessed -Temperature (Marie-wound Skin No Abnormality Appearance) (Pt Warm) -Tenderness on Palpation (Marie-wound No Skin Appearance) -Ulcer Cleansing Wound Cleanser -Foul Odor after Cleansing No -Anesthetic Used 5% Lidocaine Gel #18 Left medial LE cluster -Combined with other wound No -Current Size (cm) - Length 5.7 -Current Size (cm) - Width 11 -Current Size (cm) - Depth 0.3 -Total Square Cm 62.7 -Photo Taken -Tunneling No -Undermining/Tunneling No -Circular Undermining No -Change in Wound Grade/Stage -Exudate Amt Medium -Exudate Type Serosanguineous -Wound Margin Thickened & Rolled Under -Granulation Amt Medium (34-66%) -Granulation Quality [place] -Slough/Fibrin Yes -Necrosis Amt Medium (34-66%) -Necrotic Tissue Type Adherent Slough -Structure Exposed N/A -Texture (Marie-wound Skin Appearance) Assessed -Moisture (Marie-wound Skin Appearance) Assessed -Color (Marie-wound Skin Appearance) Assessed -Temperature (Marie-wound Skin No Abnormality Appearance) (Pt Warm) -Tenderness on Palpation (Marie-wound No Skin Appearance) -Ulcer Cleansing Wound Cleanser -Foul Odor after Cleansing No -Anesthetic Used 5% Lidocaine Gel Lower Limb Edema Present Yes Right Calf (cm) Right Ankle (cm) Left Calf (cm) 43 Left Ankle (cm) 30 WC - Nurse 2 - General Ulcer CM Notes Start: 03/11/23 09:44 Freq: Status: Active Protocol: Activity Type Activity Date Activity User E-sign Co-sign Detail Recorded Client Recorded Date Recorded By Document 03/11/23 10:24 MW [id number] 03/11/23 10:35 MW Edit Result 03/11/23 10:24 MW (1) [id number] 03/11/23 10:36 MW Document 03/18/23 10:28 MW [id number] 03/18/23 10:49 MW Document 03/25/23 11:16 MW [id number] 03/25/23 11:31 MW Document 04/01/23 10:35 MW [id number] 04/01/23 10:58 MW (1) #21 LEFT [place] - Debridement - Subq, 1st 20sq cm No => Yes 03/11/23 03/18/23 03/25/23 10:24 10:28 11:16 Wound Center Nurse 2 #21 LEFT [place] -Time 10:25 10:32 11:17 -Correct Patient Yes Yes Yes -Correct Side, Site, Position Yes Yes Yes -Correct Procedure Yes Yes Yes -Procedure Performed Yes Yes Yes -Type of Procedure Debridement Debridement Debridement -Clinical Debridement Subcutaneous Subcutaneous Subcutaneous -Tissue Removed Subcutaneous Subcutaneous Subcutaneous -Post Debridement (cm) - Length 2.5 2.0 3.0 -Post Debridement (cm) - Width 1.9 1.0 1.0 -Post Debridement (cm) - Depth 0.1 0.1 0.1 -Total Square (Post) (cm) 4.75 2.00 3.00 -Area of Debridement (cm) - Length 2.5 2.0 3.0 -Area of Debridement (cm) - Width 1.9 1.0 1.0 -Total Square (Area) (cm) 4.75 2.00 3.00 -Tunneling No No No -Undermining/Tunneling No No No -Circular Undermining No No No -Wound/Ulcer Outcome Not Healed Not Healed Not Healed -Ulcer Cleansing Rinsed/ Rinsed/ Rinsed/ Irrigated with Irrigated with Irrigated with Saline Saline Saline -Foul Odor after Cleansing No No No -Bioengineered Tissue No No No -Bleeding Controlled with Pressure Pressure Pressure -Treatment Response Procedure Procedure Procedure Tolerated Well Tolerated Well Tolerated Well -Offloading No No No -Debridement - Subq, 1st 20sq cm Yes Yes Yes #19 Left Lateral LE cluster -Time 10:24 10:33 11:19 -Correct Patient Yes Yes Yes -Correct Side, Site, Position Yes Yes Yes -Correct Procedure Yes Yes Yes -Procedure Performed Yes Yes Yes -Type of Procedure Debridement Debridement Debridement -Clinical Debridement Subcutaneous Subcutaneous Subcutaneous -Tissue Removed Subcutaneous Subcutaneous Subcutaneous -Post Debridement (cm) - Length 0.8 0.3 0.9 -Post Debridement (cm) - Width 0.7 0.3 0.3 -Post Debridement (cm) - Depth 0.1 0.1 0.1 -Total Square (Post) (cm) 0.56 0.09 0.27 -Area of Debridement (cm) - Length 0.8 0.3 0.9 -Area of Debridement (cm) - Width 0.7 0.3 0.3 -Total Square (Area) (cm) 0.56 0.09 0.27 -Tunneling No No No -Undermining/Tunneling No No No -Circular Undermining No No No -Wound/Ulcer Outcome Not Healed Not Healed Not Healed -Ulcer Cleansing Rinsed/ Wound Cleanser Rinsed/ Irrigated with Irrigated with Saline Saline -Foul Odor after Cleansing No No No -Bioengineered Tissue No No No -Bleeding Controlled with Pressure Pressure Pressure -Treatment Response Procedure Procedure Procedure Tolerated Well Tolerated Well Tolerated Well -Offloading No No No -Debridement - Subq, 1st 20sq cm No No No #18 Left medial LE cluster -Time 10:24 10:34 11:20 -Correct Patient Yes Yes Yes -Correct Side, Site, Position Yes Yes Yes -Correct Procedure Yes Yes Yes -Procedure Performed Yes Yes Yes -Type of Procedure Debridement Debridement Debridement -Clinical Debridement Subcutaneous Subcutaneous Subcutaneous -Tissue Removed Subcutaneous Subcutaneous Subcutaneous -Post Debridement (cm) - Length 6.5 6.1 5.8 -Post Debridement (cm) - Width 9.1 9.5 9.0 -Post Debridement (cm) - Depth 0.2 0.2 0.2 -Total Square (Post) (cm) 59.15 57.95 52.20 -Area of Debridement (cm) - Length 6.5 6.4 5.8 -Area of Debridement (cm) - Width 9.1 9.5 9.0 -Total Square (Area) (cm) 59.15 60.80 52.20 -Tunneling No No No -Undermining/Tunneling No No No -Circular Undermining No No No -Wound/Ulcer Outcome Not Healed Not Healed Not Healed -Ulcer Cleansing Rinsed/ Rinsed/ Rinsed/ Irrigated with Irrigated with Irrigated with Saline Saline Saline -Foul Odor after Cleansing No No No -Bioengineered Tissue Yes Yes Yes -Type of Bioengineered Tissue Epifix Mesh Epifix Mesh Epifix Mesh -Expiration Date 01/09/28 01/09/28 01/09/28 -Product Lot Number [id number] -Percent Used 100 100 100 -Lot number of Saline Used [id number] -Bleeding Controlled with Pressure Pressure Pressure -Treatment Response Procedure Procedure Procedure Tolerated Well Tolerated Well Tolerated Well -Offloading No No No -Debridement - Subq, 1st 20sq cm No No No -Apply Skin Sub - 1st 25 sq cm - Legs 1 1 1 -Epifix Mesh (per sq cm) 11 11 11 Pain Scale: 0-10 Numeric Is Patient Pain Free? Yes Yes Yes 04/01/23 10:35 Wound Center Nurse 2 #21 LEFT [place] -Time 10:39 -Correct Patient Yes -Correct Side, Site, Position Yes -Correct Procedure Yes -Procedure Performed Yes -Type of Procedure Debridement -Clinical Debridement Subcutaneous -Tissue Removed Subcutaneous -Post Debridement (cm) - Length 1.4 -Post Debridement (cm) - Width 0.6 -Post Debridement (cm) - Depth 0.1 -Total Square (Post) (cm) 0.84 -Area of Debridement (cm) - Length 1.4 -Area of Debridement (cm) - Width 0.6 -Total Square (Area) (cm) 0.84 -Tunneling No -Undermining/Tunneling No -Circular Undermining No -Wound/Ulcer Outcome Not Healed -Ulcer Cleansing Rinsed/ Irrigated with Saline -Foul Odor after Cleansing No -Bioengineered Tissue No -Bleeding Controlled with Pressure -Treatment Response Procedure Tolerated Well -Offloading No -Debridement - Subq, 1st 20sq cm Yes #19 Left Lateral LE cluster -Time 10:40 -Correct Patient Yes -Correct Side, Site, Position Yes -Correct Procedure Yes -Procedure Performed Yes -Type of Procedure Debridement -Clinical Debridement Subcutaneous -Tissue Removed Subcutaneous -Post Debridement (cm) - Length 0.8 -Post Debridement (cm) - Width 0.2 -Post Debridement (cm) - Depth 0.1 -Total Square (Post) (cm) 0.16 -Area of Debridement (cm) - Length 0.8 -Area of Debridement (cm) - Width 0.2 -Total Square (Area) (cm) 0.16 -Tunneling No -Undermining/Tunneling No -Circular Undermining No -Wound/Ulcer Outcome Not Healed -Ulcer Cleansing Rinsed/ Irrigated with Saline -Foul Odor after Cleansing No -Bioengineered Tissue No -Bleeding Controlled with Pressure -Treatment Response Procedure Tolerated Well -Offloading No -Debridement - Subq, 1st 20sq cm No #18 Left medial LE cluster -Time 10:40 -Correct Patient Yes -Correct Side, Site, Position Yes -Correct Procedure Yes -Procedure Performed Yes -Type of Procedure Debridement -Clinical Debridement Subcutaneous -Tissue Removed Subcutaneous -Post Debridement (cm) - Length 6.0 -Post Debridement (cm) - Width 10.0 -Post Debridement (cm) - Depth 0.2 -Total Square (Post) (cm) 60.00 -Area of Debridement (cm) - Length 6.0 -Area of Debridement (cm) - Width 10.0 -Total Square (Area) (cm) 60.00 -Tunneling No -Undermining/Tunneling No -Circular Undermining No -Wound/Ulcer Outcome Not Healed -Ulcer Cleansing Rinsed/ Irrigated with Saline -Foul Odor after Cleansing No -Bioengineered Tissue Yes -Type of Bioengineered Tissue Epifix Mesh -Expiration Date 01/09/28 -Product Lot Number [id number] -Percent Used 100 -Lot number of Saline Used [id number] -Bleeding Controlled with Pressure -Treatment Response Procedure Tolerated Well -Offloading No -Debridement - Subq, 1st 20sq cm No -Apply Skin Sub - 1st 25 sq cm - Legs 1 -Epifix Mesh (per sq cm) 11 Pain Scale: 0-10 Numeric Is Patient Pain Free? Yes WC - Nurse 3 - General Ulcer D/C NN Start: 03/11/23 09:44 Freq: Status: Active Protocol: Activity Type Activity Date Activity User E-sign Co-sign Detail Recorded Client Recorded Date Recorded By Document 03/11/23 10:58 RB [id number] 03/11/23 10:59 RB Document 03/18/23 11:07 RB [id number] 03/18/23 11:09 RB Document 03/25/23 13:11 RB [id number] 03/25/23 13:13 RB Document 04/01/23 10:59 MW [id number] 04/01/23 11:00 MW 03/11/23 03/18/23 03/25/23 10:58 11:07 13:11 Wound Care Center Nurse 3 #21 LEFT [place] -Ulcer Cleansing Rinsed/ Irrigated with Saline -Foul Odor after Cleansing -Negative Pressure Wound Therapy -Primary Dressing Applied Aquacel Extra Aquacel Extra Aquacel Extra -Other Dressing abd ABD -Primary Dressing Covered/Secured with Dry Gauze,Dry Dry Gauze,Dry Dry Gauze & Gauze & Roll Gauze & Roll Roll Gauze Gauze,Secured Gauze,Secured with Tape with Tape -Other Covering -Aquacel Extra 2 1 1 -Fibracol Plus 4x4 #19 Left Lateral LE cluster -Ulcer Cleansing -Foul Odor after Cleansing -Negative Pressure Wound Therapy -Other Dressing aquacel extra , aquacel extra/ aquacel extra/ abd abd ABD -Primary Dressing Covered/Secured with Dry Gauze & Dry Gauze & Roll Gauze, Roll Gauze, Secured with Secured with Tape Tape -Other Covering #18 Left medial LE cluster -Ulcer Cleansing Rinsed/ Irrigated with Saline -Foul Odor after Cleansing -Negative Pressure Wound Therapy -Other Dressing aquacel extra aquacel extra/ aquacel extra/ abd abd ABD -Primary Dressing Covered/Secured with Dry Gauze & Dry Gauze & Roll Gauze, Roll Gauze, Secured with Secured with Tape Tape -Other Covering Right -Lotion applied to leg before compression wrap -Compression Wrap -Tubular Bandage Single Layer -Size of Tubigrip Used Size E -Size E ($) 1 -Other pt own tubigrip single layer size E Left -Lotion applied to leg before compression wrap -Compression Wrap -Tubular Bandage Single Layer Single Layer -Size of Tubigrip Used Size E Size E -Size E ($) 1 1 Treatment Response Procedure Procedure Tolerated Well Tolerated Well Pain Scale: 0-10 Numeric Is Patient Pain Free? Yes Yes Yes Teaching: Wound Center Dressing Your Wound -Person Taught -Teaching Method -Response to teaching WC - Visit Discharge Discharge Condition Stable Stable Stable Ambulatory Status Ambulatory, Ambulatory, Ambulatory, Walker Walker Walker Transportation Private Auto [facility] transport Private Auto Accompanied by Medication Reconcilliation completed & No No No provided to patient/care provider Clinical Summary of Care Provided Yes Yes Yes 04/01/23 [facility] Nurse 3 #21 LEFT [place] -Ulcer Cleansing Rinsed/ Irrigated with Saline -Foul Odor after Cleansing No -Negative Pressure Wound Therapy N/A -Primary Dressing Applied Fibracol Plus 4x4 -Other Dressing -Primary Dressing Covered/Secured with Dry Gauze & Roll Gauze, Secured with Tape -Other Covering ABD -Aquacel Extra -Fibracol Plus 4x4 1 #19 Left Lateral LE cluster -Ulcer Cleansing Rinsed/ Irrigated with Saline -Foul Odor after Cleansing No -Negative Pressure Wound Therapy N/A -Other Dressing FIBRACOL PLUS -Primary Dressing Covered/Secured with Dry Gauze & Roll Gauze, Secured with Tape -Other Covering ABD #18 Left medial LE cluster -Ulcer Cleansing Rinsed/ Irrigated with Saline -Foul Odor after Cleansing No -Negative Pressure Wound Therapy N/A -Other Dressing FIBRACOL PLUS -Primary Dressing Covered/Secured with Dry Gauze & Roll Gauze, Secured with Tape -Other Covering ABD Right -Lotion applied to leg before No compression wrap -Compression Wrap Marcio Wrap -Tubular Bandage -Size of Tubigrip Used -Size E ($) -Other Left -Lotion applied to leg before No compression wrap -Compression Wrap Marcio Wrap -Tubular Bandage -Size of Tubigrip Used -Size E ($) Treatment Response Procedure Tolerated Well Pain Scale: 0-10 Numeric Is Patient Pain Free? Yes Teaching: Wound Center Dressing Your Wound -Person Taught Patient -Teaching Method Discussion, Demonstration -Response to teaching Verbalize understanding WC - Visit Discharge Discharge Condition Stable Ambulatory Status Ambulatory, Walker Transportation Private Auto Accompanied by SELF Medication Reconcilliation completed & No provided to patient/care provider Clinical Summary of Care Provided Yes Additional Wound Wound debrided: left medial LE cluster Laterality: Left Type of Debridement: Excisional debridement Anesthesia Used: 4% Lidocaine Solution and 5% Lidocaine Gel Depth: Down to and including healthy tissue and in the subcutaneous layer Percentage of wound debrided: 100 Instrument Used: 5mm curette Tissue Removed: yellow slough, devitalized tissue Severity: Fat Layer Exposed Amount of bleeding with debridement: Mild Bleeding Controlled with: Compression and gauze Patient tolerated procedure: Patient tolerated procedure well Additional Wound Wound debrided: left [place] Laterality: Left Type of Debridement: Excisional debridement Anesthesia Used: 4% Lidocaine Solution and 5% Lidocaine Gel Depth: Down to and including healthy tissue and in the subcutaneous layer Percentage of wound debrided: 100 Instrument Used: 5mm curette Tissue Removed: Yellow slough, devitalized tissue Severity: Fat Layer Exposed Amount of bleeding with debridement: Mild Bleeding Controlled with: Compression and gauze Patient tolerated procedure: Patient tolerated procedure well Assessment/Plan Assessment/Plan (1) Ulcer of right lower extremity with fat layer exposed: CODE(S): L97.912 - Non-pressure chronic ulcer of unspecified part of right lower leg with fat layer exposed (2) Ulcer of left lower extremity with fat layer exposed: CODE(S): L97.922 - Non-pressure chronic ulcer of unspecified part of left lower leg with fat layer exposed (3) Venous insufficiency: CODE(S): I87.2 - Venous insufficiency (chronic) (peripheral) (4) Edema: CODE(S): R60.9 - Edema, unspecified QUALIFIERS: Edema type: unspecified Qualified Code(s): R60.9 - Edema, unspecified (5) History of CVA (cerebrovascular accident): CODE(S): Z86.73 - Personal history of transient ischemic attack (TIA), and cerebral infarction without residual deficits (6) Venous ulcer of left lower extremity with varicose veins: CODE(S): I83.029 - Varicose veins of left lower extremity with ulcer of unspecified site (7) Venous ulcer of both lower extremities with varicose veins: CODE(S): I83.019 - Varicose veins of right lower extremity with ulcer of unspecified site; I83.029 - Varicose veins of left lower extremity with ulcer of unspecified site (8) Venous ulcers of both lower extremities: CODE(S): I87.2 - Venous insufficiency (chronic) (peripheral) (9) Lymphedema: CODE(S): I89.0 - Lymphedema, not elsewhere classified PLAN: Plan Debridement performed today in clinic as annotated above. At home wound-care instructions: Epifix was applied to ulcers per transportation mechanic guidelines and covered with wound veil secured with steri-strips and will apply Fibracol as secondary dressing to ulcers, cover with ABD and wrap with gauze and use compression with tubigrips and continue lasix 3 tabs BID. Epifix #5 applied today. Off-loading: The patient was instructed to avoid pressure and friction on the affected areas. Reposition every 2 hours at minimum. Avoid prolonged standing and/or dangling of legs. When seated, feet should be elevated at chest level. Frequent ambulation is encouraged. Encouraged lymphedema pump use. Diet: Patient encouraged to increase protein intake while taking caution to avoid high carbohydrate and/or sugar intake. Labs/cultures/imaging: Follow-up: Return in 1 week for wound care follow up and have secondary dressing changed by home health Tuesday and Tuesday. Return sooner or report to the emergency room should symptoms worsen, or new symptoms arise. Note: [employer] speech recognition carpet floor layer apprentice software was used to create portions of this document. Sound-alike and misspelled words, as well as other carpet floor layer apprentice errors may be contained in the documentation.
[2023-04-08 09:55] VITALS: BP 124/66; PULSE 68; RESP 18; TEMP 36.1
--- NOTE | 2023-04-08 14:09 | PN.PCM_ITS ---
History of Present Illness Date of Service: 04/08/23 Chief Complaint: venous ulcers of left lower extremity History of Wound: Mauricio is a 67 yo gentleman who is here today for evaluation of ulcers to to his bilateral lower legs. He has been treated multiple times in the past at the wound healing center for similar ulcers. The left LE ulcer started after he developed increased swelling and blisters of left leg in October and the right leg started sometime at the end of October. He was seen at PCP's office a culture was taken and it was resistant to several antibiotics. He was treated initially with Levaquin but had myalgias and then was treated with doxycycline which he finished 2 days ago. He denies improvement and is having swelling to his left calf and thigh. He has been having swelling to both lower extremities for many years and it has worsened over the last few months. He has not been compliant with compression. He has had increased pain especially in the left leg. He has clear yellow drainage and redness without odor or warmth. He is anti- coagulated on coumadin. He has been washing with Dial soap and witch ifrah. He had been using Collagen at times and using Calcium Alginate and covering with ABD pads during October. He was treated with 3M compression and Aquacel Ag. He was referred to the wound center for ongoing treatment. His ulcers have moderate to heavy drainage. He was recently hospitalized for cellulitis and edema for the last 10 days. He was in the hospital from 11/30/22 until 12/09/22 for treatment of cellulitis and edema. He underwent treatment with Vancomycin and IV lasix and compression. Discharged on 12/09/22 and is currently in the [facility]. He returned to his assisted living apartment on Tuesday12/21/22. Subjective Subjective He tolerated treatment with Epifix and fibracol and ABDs and tubigrips. His left lower leg ulcers are slightly improved this week but edema is about the same. Denies fever, chills, increased pain or increased drainage. Objective Data Objective Data Vital Signs: Vital Signs Temp Pulse Resp BP 97 F L 68 18 124/66 H 04/08/23 09:55 04/08/23 09:55 04/08/23 09:55 04/08/23 09:55 Physical Exam Const alert, oriented x3 and no apparent distress General Appearance: cooperative and comfortable HEENT normocephalic and head/scalp atraumatic Lymph Lymphatic: lymphedema moderate Resp normal respiratory effort Effort and Inspection: able to speak in complete sentences Cardio regular rate and regular rhythm Extremity General Extremity: edema bilateral lower extremity Details: severe Skin Wounds: wounds noted Wound Narrative: as in clinical panel Psych mental status grossly normal, thought process normal, cooperative and affect normal Debridement Note Debridement Note Wound debrided: Left lateral LE cluster Laterality: Left No debridement was completed: No debridement was completed today Post-Debridement Measurements and Additional Note: Post-Debridement Measurements/Treatment - Nurse 1 - General Ulcer Assessment Start: 03/11/23 09:44 Freq: Status: Active Protocol: [email or web address] Activity Type Activity Date Activity User E-sign Co-sign Detail Recorded Client Recorded Date Recorded By Document 03/11/23 09:44 AK [id number] 03/11/23 09:46 AK Document 03/18/23 09:41 DL [id number] 03/18/23 09:52 DL Document 03/25/23 11:57 AK [id number] 03/25/23 12:00 AK Document 04/01/23 10:17 RB [id number] 04/01/23 10:29 RB Document 04/08/23 09:55 RB [id number] 04/08/23 09:57 RB 03/11/23 03/18/23 03/25/23 09:44 09:41 11:57 - Today's Visit Information Type of service Follow-up Visit Follow-up Visit Follow-up Visit (Physician/CONTACT AND SERVICE CLERKS SUPERVISOR (Physician/CONTACT AND SERVICE CLERKS SUPERVISOR (Physician/CONTACT AND SERVICE CLERKS SUPERVISOR ) ) ) Arrival Mode Ambulatory Ambulatory, Ambulatory, Walker Walker Transfer Assistance None Patient Identification Verified (Name & No Yes Yes ) Patient Requires Transmission-Based No No No Precautions Vital Signs Temperature (97.8 F-99.1 F) 97.4 F L 97.2 F L 96.9 F L Temperature Source Temporal Temporal Temporal Pulse Rate (60-100) 77 64 65 Pulse Location Monitor Monitor Monitor Respiratory Rate (12-18) 20 H Respiratory rate source Observation Blood Pressure (90/60-120/80) 126/77 H 101/60 100/62 Blood Pressure Mean (mm Hg) 93 73 74 Source Monitor Monitor Monitor Position Blood Pressure Location History Since Last Visit- (Skip if this is Patient's initial visit) Have you changed medications since your No No No last visit? Any new allergies or adverse reactions No No No Had a fall/change in ADL's that may No No No increase risk of falls Signs or symptoms of abuse and/or No No No neglect since last visit Have you been in the hospital since your No No No last visit? Has dressing in place as prescribed Yes Yes No Has compression in place as prescribed N/A Yes Yes Has offloadiing in place as prescribed N/A N/A Yes Experienced any changes in pain level or No No No management Left Footwear Regular Shoe Regular Shoe Right Footwear Regular Shoe Regular Shoe Pain Scale: 0-10 Numeric Is Patient Pain Free? Yes Yes No 04/01/23 04/08/23 10:17 09:55 WC - Today's Visit Information Type of service Follow-up Visit Follow-up Visit (Physician/CONTACT AND SERVICE CLERKS SUPERVISOR (Physician/CONTACT AND SERVICE CLERKS SUPERVISOR ) ) Arrival Mode Ambulatory, Ambulatory, Walker Walker Transfer Assistance None None Patient Identification Verified (Name & Yes Yes ) Patient Requires Transmission-Based No No Precautions Vital Signs Temperature (97.8 F-99.1 F) 97 F L 97 F L Temperature Source Temporal Temporal Pulse Rate (60-100) 61 68 Pulse Location Monitor Monitor Respiratory Rate (12-18) 18 18 Respiratory rate source Observation Observation Blood Pressure (90/60-120/80) 104/64 124/66 H Blood Pressure Mean (mm Hg) 77 85 Source Monitor Monitor Position Semi-Fowlers Semi-Fowlers Blood Pressure Location Left Arm Left Arm History Since Last Visit- (Skip if this is Patient's initial visit) Have you changed medications since your No No last visit? Any new allergies or adverse reactions No No Had a fall/change in ADL's that may No No increase risk of falls Signs or symptoms of abuse and/or No No neglect since last visit Have you been in the hospital since your No No last visit? Has dressing in place as prescribed Yes Yes Has compression in place as prescribed Yes Yes Has offloadiing in place as prescribed No No Experienced any changes in pain level or No No management Left Footwear Right Footwear Pain Scale: 0-10 Numeric Is Patient Pain Free? Yes Yes - Nurse 1 - General Ulcer Measurement Start: 03/11/23 09:44 Freq: Status: Active Protocol: Activity Type Activity Date Activity User E-sign Co-sign Detail Recorded Client Recorded Date Recorded By Document 03/11/23 09:44 AK [id number] 03/11/23 09:46 AK Document 03/18/23 09:41 DL [id number] 03/18/23 09:52 DL Document 03/25/23 11:57 AK [id number] 03/25/23 12:00 AK Document 04/01/23 10:17 RB [id number] 04/01/23 10:29 RB Document 04/08/23 09:55 RB [id number] 04/08/23 09:57 RB 03/11/23 03/18/23 03/25/23 09:44 09:41 11:57 Wound Center Nurse 1 #21 LEFT [place] -Combined with other wound No -Current Size (cm) - Length 2.2 5 -Current Size (cm) - Width 0.8 3 -Current Size (cm) - Depth 0.1 0.1 -Total Square Cm 1.76 15 -Photo Taken No -Tunneling No -Undermining/Tunneling No -Circular Undermining No -Change in Wound Grade/Stage No -Exudate Amt Small Large -Exudate Type Serosanguineous Serosanguineous -Wound Margin Distinct, Distinct, Outline Outline Attached Attached -Granulation Amt Large (67-100%) Large (67-100%) -Granulation Quality Red Red -Slough/Fibrin Yes -Necrosis Amt Small (1-33%) Small (1-33%) -Necrotic Tissue Type Adherent Slough Adherent Slough -Structure Exposed N/A N/A -Texture (Marie-wound Skin Appearance) Scarring No Abnormality, Assessed -Moisture (Marie-wound Skin Appearance) Dry/Scaly No Abnormality, Assessed -Color (Marie-wound Skin Appearance) Hemosiderin No Abnormality, Staining Assessed -Temperature (Marie-wound Skin No Abnormality No Abnormality Appearance) (Pt Warm) (Pt Warm) -Tenderness on Palpation (Marie-wound No No Skin Appearance) -Ulcer Cleansing Not Cleansed Rinsed/ Irrigated with Saline -Foul Odor after Cleansing No No -Anesthetic Used 5% Lidocaine 5% Lidocaine Gel Gel #19 Left Lateral LE cluster -Combined with other wound No No -Current Size (cm) - Length 7 0.1 0.5 -Current Size (cm) - Width 10.5 0.1 0.5 -Current Size (cm) - Depth 0.1 0.1 0.1 -Total Square Cm 73.5 0.01 0.25 -Photo Taken Yes No -Tunneling No No -Undermining/Tunneling No No -Circular Undermining No No -Change in Wound Grade/Stage No No -Exudate Amt Medium None Present Medium -Exudate Type Serosanguineous Serosanguineous -Wound Margin Distinct, Thickened Distinct, Outline Outline Attached Attached -Granulation Amt Large (67-100%) None Present (0 Large (67-100%) %) -Granulation Quality Hyper- Red granulation, [place] -Slough/Fibrin No Yes -Necrosis Amt None Present (0 Small (1-33%) Small (1-33%) %) -Necrotic Tissue Type Adherent Slough Adherent Slough -Structure Exposed N/A N/A N/A -Texture (Marie-wound Skin Appearance) Assessed, Scarring No Abnormality, Scarring Assessed -Moisture (Marie-wound Skin Appearance) No Abnormality Dry/Scaly No Abnormality, Assessed -Color (Marie-wound Skin Appearance) No Abnormality, Hemosiderin No Abnormality, Assessed Staining Assessed -Temperature (Marie-wound Skin No Abnormality No Abnormality No Abnormality Appearance) (Pt Warm) (Pt Warm) (Pt Warm) -Tenderness on Palpation (Marie-wound No No No Skin Appearance) -Ulcer Cleansing Soap and Water Soap and Water Rinsed/ Irrigated with Saline -Foul Odor after Cleansing No No No -Anesthetic Used 4% Lidocaine 5% Lidocaine 5% Lidocaine Solution Gel Gel #18 Left medial LE cluster -Combined with other wound No No -Current Size (cm) - Length 6.5 5.8 5.8 -Current Size (cm) - Width 4 10 10 -Current Size (cm) - Depth 0.1 0.2 0.2 -Total Square Cm 26.0 58.0 58.0 -Photo Taken Yes No -Tunneling No No -Undermining/Tunneling No No -Circular Undermining No No -Change in Wound Grade/Stage No No -Exudate Amt Medium Medium -Exudate Type Serosanguineous Serosanguineous Serosanguineous -Wound Margin Distinct, Distinct, Distinct, Outline Outline Outline Attached Attached Attached -Granulation Amt Large (67-100%) Medium (34-66%) Medium (34-66%) -Granulation Quality [place] Red Red -Slough/Fibrin Yes Yes -Necrosis Amt Small (1-33%) Medium (34-66%) Medium (34-66%) -Necrotic Tissue Type Adherent Slough Adherent Slough Adherent Slough -Structure Exposed N/A N/A N/A -Texture (Marie-wound Skin Appearance) Assessed, Scarring No Abnormality, Scarring Assessed -Moisture (Marie-wound Skin Appearance) Assessed Dry/Scaly No Abnormality, Assessed -Color (Marie-wound Skin Appearance) Assessed, Hemosiderin No Abnormality, Hemosiderin Staining Assessed Staining -Temperature (Marie-wound Skin No Abnormality No Abnormality No Abnormality Appearance) (Pt Warm) (Pt Warm) (Pt Warm) -Tenderness on Palpation (Marie-wound Yes No No Skin Appearance) -Ulcer Cleansing Soap and Water Soap and Water -Foul Odor after Cleansing No No No -Anesthetic Used 4% Lidocaine 5% Lidocaine 5% Lidocaine Solution Gel Gel Lower Limb Edema Present Right Calf (cm) 42.6 Right Ankle (cm) 30 Left Calf (cm) 42.5 Left Ankle (cm) 27 04/01/23 04/08/23 10:17 09:55 Wound Center Nurse 1 #21 LEFT [place] -Combined with other wound No -Current Size (cm) - Length 1.4 -Current Size (cm) - Width 0.7 -Current Size (cm) - Depth 0.1 -Total Square Cm 0.98 -Photo Taken -Tunneling No No -Undermining/Tunneling No No -Circular Undermining No No -Change in Wound Grade/Stage -Exudate Amt Medium Large -Exudate Type Serosanguineous Serosanguineous -Wound Margin Distinct, Distinct, Outline Outline Attached Attached -Granulation Amt Medium (34-66%) Medium (34-66%) -Granulation Quality [place] -Slough/Fibrin Yes Yes -Necrosis Amt Medium (34-66%) Medium (34-66%) -Necrotic Tissue Type Adherent Slough Adherent Slough -Structure Exposed N/A N/A -Texture (Marie-wound Skin Appearance) Assessed Assessed -Moisture (Marie-wound Skin Appearance) Assessed Assessed -Color (Marie-wound Skin Appearance) Assessed Assessed -Temperature (Marie-wound Skin No Abnormality No Abnormality Appearance) (Pt Warm) (Pt Warm) -Tenderness on Palpation (Marie-wound No No Skin Appearance) -Ulcer Cleansing Wound Cleanser Wound Cleanser -Foul Odor after Cleansing No No -Anesthetic Used 5% Lidocaine 5% Lidocaine Gel Gel #19 Left Lateral LE cluster -Combined with other wound No -Current Size (cm) - Length 0.1 -Current Size (cm) - Width 0.1 -Current Size (cm) - Depth 0.1 -Total Square Cm 0.01 -Photo Taken -Tunneling No No -Undermining/Tunneling No No -Circular Undermining No No -Change in Wound Grade/Stage -Exudate Amt Medium Large -Exudate Type Serosanguineous Serosanguineous -Wound Margin Distinct, Distinct, Outline Outline Attached Attached -Granulation Amt Medium (34-66%) Medium (34-66%) -Granulation Quality [place] -Slough/Fibrin Yes Yes -Necrosis Amt Medium (34-66%) Medium (34-66%) -Necrotic Tissue Type Adherent Slough Adherent Slough -Structure Exposed N/A N/A -Texture (Marie-wound Skin Appearance) Assessed Assessed -Moisture (Marie-wound Skin Appearance) Assessed Assessed -Color (Marie-wound Skin Appearance) Assessed Assessed -Temperature (Marie-wound Skin No Abnormality No Abnormality Appearance) (Pt Warm) (Pt Warm) -Tenderness on Palpation (Marie-wound No No Skin Appearance) -Ulcer Cleansing Wound Cleanser Wound Cleanser -Foul Odor after Cleansing No No -Anesthetic Used 5% Lidocaine 5% Lidocaine Gel Gel #18 Left medial LE cluster -Combined with other wound No -Current Size (cm) - Length 5.7 -Current Size (cm) - Width 11 -Current Size (cm) - Depth 0.3 -Total Square Cm 62.7 -Photo Taken -Tunneling No No -Undermining/Tunneling No No -Circular Undermining No No -Change in Wound Grade/Stage -Exudate Amt Medium Medium -Exudate Type Serosanguineous Serosanguineous -Wound Margin Thickened & Distinct, Rolled Under Outline Attached -Granulation Amt Medium (34-66%) Medium (34-66%) -Granulation Quality [place] -Slough/Fibrin Yes Yes -Necrosis Amt Medium (34-66%) Medium (34-66%) -Necrotic Tissue Type Adherent Slough Adherent Slough -Structure Exposed N/A N/A -Texture (Marie-wound Skin Appearance) Assessed Assessed -Moisture (Marie-wound Skin Appearance) Assessed Assessed -Color (Marie-wound Skin Appearance) Assessed Assessed -Temperature (Marie-wound Skin No Abnormality No Abnormality Appearance) (Pt Warm) (Pt Warm) -Tenderness on Palpation (Marie-wound No No Skin Appearance) -Ulcer Cleansing Wound Cleanser Wound Cleanser -Foul Odor after Cleansing No No -Anesthetic Used 5% Lidocaine 5% Lidocaine Gel Gel Lower Limb Edema Present Yes Right Calf (cm) Right Ankle (cm) Left Calf (cm) 43 Left Ankle (cm) 30 WC - Nurse 2 - General Ulcer CM Notes Start: 03/11/23 09:44 Freq: Status: Active Protocol: Activity Type Activity Date Activity User E-sign Co-sign Detail Recorded Client Recorded Date Recorded By Document 03/11/23 10:24 MW [id number] 03/11/23 10:35 MW Edit Result 03/11/23 10:24 MW (1) [id number] 03/11/23 10:36 MW Document 03/18/23 10:28 MW [id number] 03/18/23 10:49 MW Document 03/25/23 11:16 MW [id number] 03/25/23 11:31 MW Document 04/01/23 10:35 MW [id number] 04/01/23 10:58 MW Document 04/08/23 10:32 JF [id number] 04/08/23 10:36 JF (1) #21 LEFT [place] - Debridement - Subq, 1st 20sq cm No => Yes 03/11/23 03/18/23 03/25/23 10:24 10:28 11:16 Wound Center Nurse 2 #21 LEFT [place] -Time 10:25 10:32 11:17 -Correct Patient Yes Yes Yes -Correct Side, Site, Position Yes Yes Yes -Correct Procedure Yes Yes Yes -Procedure Performed Yes Yes Yes -Type of Procedure Debridement Debridement Debridement -Clinical Debridement Subcutaneous Subcutaneous Subcutaneous -Tissue Removed Subcutaneous Subcutaneous Subcutaneous -Post Debridement (cm) - Length 2.5 2.0 3.0 -Post Debridement (cm) - Width 1.9 1.0 1.0 -Post Debridement (cm) - Depth 0.1 0.1 0.1 -Total Square (Post) (cm) 4.75 2.00 3.00 -Area of Debridement (cm) - Length 2.5 2.0 3.0 -Area of Debridement (cm) - Width 1.9 1.0 1.0 -Total Square (Area) (cm) 4.75 2.00 3.00 -Tunneling No No No -Undermining/Tunneling No No No -Circular Undermining No No No -Wound/Ulcer Outcome Not Healed Not Healed Not Healed -Ulcer Cleansing Rinsed/ Rinsed/ Rinsed/ Irrigated with Irrigated with Irrigated with Saline Saline Saline -Foul Odor after Cleansing No No No -Bioengineered Tissue No No No -Bleeding Controlled with Pressure Pressure Pressure -Treatment Response Procedure Procedure Procedure Tolerated Well Tolerated Well Tolerated Well -Offloading No No No -Debridement - Subq, 1st 20sq cm Yes Yes Yes #19 Left Lateral LE cluster -Time 10:24 10:33 11:19 -Correct Patient Yes Yes Yes -Correct Side, Site, Position Yes Yes Yes -Correct Procedure Yes Yes Yes -Procedure Performed Yes Yes Yes -Type of Procedure Debridement Debridement Debridement -Clinical Debridement Subcutaneous Subcutaneous Subcutaneous -Tissue Removed Subcutaneous Subcutaneous Subcutaneous -Post Debridement (cm) - Length 0.8 0.3 0.9 -Post Debridement (cm) - Width 0.7 0.3 0.3 -Post Debridement (cm) - Depth 0.1 0.1 0.1 -Total Square (Post) (cm) 0.56 0.09 0.27 -Area of Debridement (cm) - Length 0.8 0.3 0.9 -Area of Debridement (cm) - Width 0.7 0.3 0.3 -Total Square (Area) (cm) 0.56 0.09 0.27 -Tunneling No No No -Undermining/Tunneling No No No -Circular Undermining No No No -Wound/Ulcer Outcome Not Healed Not Healed Not Healed -Ulcer Cleansing Rinsed/ Wound Cleanser Rinsed/ Irrigated with Irrigated with Saline Saline -Foul Odor after Cleansing No No No -Bioengineered Tissue No No No -Bleeding Controlled with Pressure Pressure Pressure -Treatment Response Procedure Procedure Procedure Tolerated Well Tolerated Well Tolerated Well -Offloading No No No -Debridement - Subq, 1st 20sq cm No No No #18 Left medial LE cluster -Time 10:24 10:34 11:20 -Correct Patient Yes Yes Yes -Correct Side, Site, Position Yes Yes Yes -Correct Procedure Yes Yes Yes -Procedure Performed Yes Yes Yes -Type of Procedure Debridement Debridement Debridement -Clinical Debridement Subcutaneous Subcutaneous Subcutaneous -Tissue Removed Subcutaneous Subcutaneous Subcutaneous -Post Debridement (cm) - Length 6.5 6.1 5.8 -Post Debridement (cm) - Width 9.1 9.5 9.0 -Post Debridement (cm) - Depth 0.2 0.2 0.2 -Total Square (Post) (cm) 59.15 57.95 52.20 -Area of Debridement (cm) - Length 6.5 6.4 5.8 -Area of Debridement (cm) - Width 9.1 9.5 9.0 -Total Square (Area) (cm) 59.15 60.80 52.20 -Tunneling No No No -Undermining/Tunneling No No No -Circular Undermining No No No -Wound/Ulcer Outcome Not Healed Not Healed Not Healed -Ulcer Cleansing Rinsed/ Rinsed/ Rinsed/ Irrigated with Irrigated with Irrigated with Saline Saline Saline -Foul Odor after Cleansing No No No -Bioengineered Tissue Yes Yes Yes -Type of Bioengineered Tissue Epifix Mesh Epifix Mesh Epifix Mesh -Expiration Date 01/09/28 01/09/28 01/09/28 -Product Lot Number [id number] -Percent Used 100 100 100 -Lot number of Saline Used [id number] -Bleeding Controlled with Pressure Pressure Pressure -Treatment Response Procedure Procedure Procedure Tolerated Well Tolerated Well Tolerated Well -Offloading No No No -Debridement - Subq, 1st 20sq cm No No No -Apply Skin Sub - 1st 25 sq cm - Legs 1 1 1 -Apply Skin Sub - each addt'l 25 sq cm - Legs -Epifix Mesh (per sq cm) 11 11 11 Pain Scale: 0-10 Numeric Is Patient Pain Free? Yes Yes Yes 04/01/23 04/08/23 10:35 10:32 Wound Center Nurse 2 #21 LEFT [place] -Time 10:39 -Correct Patient Yes No -Correct Side, Site, Position Yes No -Correct Procedure Yes No -Procedure Performed Yes No -Type of Procedure Debridement -Clinical Debridement Subcutaneous -Tissue Removed Subcutaneous -Post Debridement (cm) - Length 1.4 0 -Post Debridement (cm) - Width 0.6 0 -Post Debridement (cm) - Depth 0.1 0 -Total Square (Post) (cm) 0.84 0 -Area of Debridement (cm) - Length 1.4 0 -Area of Debridement (cm) - Width 0.6 0 -Total Square (Area) (cm) 0.84 0 -Tunneling No -Undermining/Tunneling No -Circular Undermining No -Wound/Ulcer Outcome Not Healed Healed- Epithelialized -Ulcer Cleansing Rinsed/ Irrigated with Saline -Foul Odor after Cleansing No -Bioengineered Tissue No -Bleeding Controlled with Pressure -Treatment Response Procedure Tolerated Well -Offloading No -Debridement - Subq, 1st 20sq cm Yes #19 Left Lateral LE cluster -Time 10:40 -Correct Patient Yes No -Correct Side, Site, Position Yes No -Correct Procedure Yes No -Procedure Performed Yes No -Type of Procedure Debridement -Clinical Debridement Subcutaneous -Tissue Removed Subcutaneous -Post Debridement (cm) - Length 0.8 0 -Post Debridement (cm) - Width 0.2 0 -Post Debridement (cm) - Depth 0.1 0 -Total Square (Post) (cm) 0.16 0 -Area of Debridement (cm) - Length 0.8 0 -Area of Debridement (cm) - Width 0.2 0 -Total Square (Area) (cm) 0.16 0 -Tunneling No -Undermining/Tunneling No -Circular Undermining No -Wound/Ulcer Outcome Not Healed Healed- Epithelialized -Ulcer Cleansing Rinsed/ Irrigated with Saline -Foul Odor after Cleansing No -Bioengineered Tissue No -Bleeding Controlled with Pressure -Treatment Response Procedure Tolerated Well -Offloading No -Debridement - Subq, 1st 20sq cm No #18 Left medial LE cluster -Time 10:40 10:32 -Correct Patient Yes Yes -Correct Side, Site, Position Yes Yes -Correct Procedure Yes Yes -Procedure Performed Yes Yes -Type of Procedure Debridement Debridement -Clinical Debridement Subcutaneous Subcutaneous -Tissue Removed Subcutaneous Subcutaneous -Post Debridement (cm) - Length 6.0 6.0 -Post Debridement (cm) - Width 10.0 10.0 -Post Debridement (cm) - Depth 0.2 0.2 -Total Square (Post) (cm) 60.00 60.00 -Area of Debridement (cm) - Length 6.0 6.0 -Area of Debridement (cm) - Width 10.0 10.0 -Total Square (Area) (cm) 60.00 60.00 -Tunneling No No -Undermining/Tunneling No No -Circular Undermining No No -Wound/Ulcer Outcome Not Healed Not Healed -Ulcer Cleansing Rinsed/ Rinsed/ Irrigated with Irrigated with Saline Saline -Foul Odor after Cleansing No No -Bioengineered Tissue Yes Yes -Type of Bioengineered Tissue Epifix Mesh Epifix Mesh -Expiration Date 01/09/28 01/09/28 -Product Lot Number [id number] -Percent Used 100 100 -Lot number of Saline Used [id number] -Bleeding Controlled with Pressure Pressure -Treatment Response Procedure Procedure Tolerated Well Tolerated Well -Offloading No No -Debridement - Subq, 1st 20sq cm No No -Apply Skin Sub - 1st 25 sq cm - Legs 1 1 -Apply Skin Sub - each addt'l 25 sq cm 2 - Legs -Epifix Mesh (per sq cm) 11 11 Pain Scale: 0-10 Numeric Is Patient Pain Free? Yes Yes WC - Nurse 3 - General Ulcer D/C NN Start: 03/11/23 09:44 Freq: Status: Active Protocol: Activity Type Activity Date Activity User E-sign Co-sign Detail Recorded Client Recorded Date Recorded By Document 03/11/23 10:58 RB [id number] 03/11/23 10:59 RB Document 03/18/23 11:07 RB [id number] 03/18/23 11:09 RB Document 03/25/23 13:11 RB [id number] 03/25/23 13:13 RB Document 04/01/23 10:59 MW [id number] 04/01/23 11:00 MW Document 04/08/23 11:12 RB [id number] 04/08/23 11:13 RB 03/11/23 03/18/23 03/25/23 10:58 11:07 13:11 Wound Care Center Nurse 3 #21 LEFT [place] -Ulcer Cleansing Rinsed/ Irrigated with Saline -Foul Odor after Cleansing -Negative Pressure Wound Therapy -Primary Dressing Applied Aquacel Extra Aquacel Extra Aquacel Extra -Other Dressing abd ABD -Primary Dressing Covered/Secured with Dry Gauze,Dry Dry Gauze,Dry Dry Gauze & Gauze & Roll Gauze & Roll Roll Gauze Gauze,Secured Gauze,Secured with Tape with Tape -Other Covering -Aquacel Extra 2 1 1 -Fibracol Plus 4x4 #19 Left Lateral LE cluster -Ulcer Cleansing -Foul Odor after Cleansing -Negative Pressure Wound Therapy -Other Dressing aquacel extra , aquacel extra/ aquacel extra/ abd abd ABD -Primary Dressing Covered/Secured with Dry Gauze & Dry Gauze & Roll Gauze, Roll Gauze, Secured with Secured with Tape Tape -Other Covering #18 Left medial LE cluster -Ulcer Cleansing Rinsed/ Irrigated with Saline -Foul Odor after Cleansing -Negative Pressure Wound Therapy -Primary Dressing Applied -Other Dressing aquacel extra aquacel extra/ aquacel extra/ abd abd ABD -Primary Dressing Covered/Secured with Dry Gauze & Dry Gauze & Roll Gauze, Roll Gauze, Secured with Secured with Tape Tape -Other Covering -Fibracol Plus 4x4 Right -Lotion applied to leg before compression wrap -Compression Wrap -Tubular Bandage Single Layer -Size of Tubigrip Used Size E -Size E ($) 1 -Other pt own tubigrip single layer size E Left -Lotion applied to leg before compression wrap -Compression Wrap -Tubular Bandage Single Layer Single Layer -Size of Tubigrip Used Size E Size E -Size E ($) 1 1 Treatment Response Procedure Procedure Tolerated Well Tolerated Well Pain Scale: 0-10 Numeric Is Patient Pain Free? Yes Yes Yes Teaching: Wound Center Dressing Your Wound -Person Taught -Teaching Method -Response to teaching WC - Visit Discharge Discharge Condition Stable Stable Stable Ambulatory Status Ambulatory, Ambulatory, Ambulatory, Walker Walker Walker Transportation Private Auto [facility] transport Private Auto Accompanied by Medication Reconcilliation completed & No No No provided to patient/care provider Clinical Summary of Care Provided Yes Yes Yes 04/01/23 04/08/23 10:59 11:12 Wound Care Center Nurse 3 #21 LEFT [place] -Ulcer Cleansing Rinsed/ Irrigated with Saline -Foul Odor after Cleansing No -Negative Pressure Wound Therapy N/A -Primary Dressing Applied Fibracol Plus 4x4 -Other Dressing -Primary Dressing Covered/Secured with Dry Gauze & Roll Gauze, Secured with Tape -Other Covering ABD -Aquacel Extra -Fibracol Plus 4x4 1 #19 Left Lateral LE cluster -Ulcer Cleansing Rinsed/ Irrigated with Saline -Foul Odor after Cleansing No -Negative Pressure Wound Therapy N/A -Other Dressing FIBRACOL PLUS -Primary Dressing Covered/Secured with Dry Gauze & Roll Gauze, Secured with Tape -Other Covering ABD #18 Left medial LE cluster -Ulcer Cleansing Rinsed/ Rinsed/ Irrigated with Irrigated with Saline Saline -Foul Odor after Cleansing No -Negative Pressure Wound Therapy N/A -Primary Dressing Applied Fibracol Plus 4x4 -Other Dressing FIBRACOL PLUS abd -Primary Dressing Covered/Secured with Dry Gauze & Dry Gauze,Dry Roll Gauze, Gauze & Roll Secured with Gauze,Secured Tape with Tape -Other Covering ABD -Fibracol Plus 4x4 1 Right -Lotion applied to leg before No compression wrap -Compression Wrap Marcio Wrap -Tubular Bandage -Size of Tubigrip Used -Size E ($) -Other Left -Lotion applied to leg before No compression wrap -Compression Wrap Marcio Wrap -Tubular Bandage Single Layer -Size of Tubigrip Used Size E -Size E ($) 1 Treatment Response Procedure Procedure Tolerated Well Tolerated Well Pain Scale: 0-10 Numeric Is Patient Pain Free? Yes Yes Teaching: Wound Center Dressing Your Wound -Person Taught Patient -Teaching Method Discussion, Demonstration -Response to teaching Verbalize understanding WC - Visit Discharge Discharge Condition Stable Stable Ambulatory Status Ambulatory, Ambulatory, Walker Walker Transportation Private Auto Private Auto Accompanied by SELF Medication Reconcilliation completed & No No provided to patient/care provider Clinical Summary of Care Provided Yes Yes Additional Wound Wound debrided: left medial LE cluster Laterality: Left Type of Debridement: Excisional debridement Anesthesia Used: 4% Lidocaine Solution and 5% Lidocaine Gel Depth: Down to and including healthy tissue and in the subcutaneous layer Percentage of wound debrided: 100 Instrument Used: 7mm curette Tissue Removed: yellow slough, devitalized tissue Severity: Fat Layer Exposed Amount of bleeding with debridement: Mild Bleeding Controlled with: Compression and gauze Patient tolerated procedure: Patient tolerated procedure well Additional Wound Wound debrided: left [place] Laterality: Left Operative Diagnosis: No debridement - ulcer healed Assessment/Plan Assessment/Plan (1) Ulcer of right lower extremity with fat layer exposed: CODE(S): L97.912 - Non-pressure chronic ulcer of unspecified part of right lower leg with fat layer exposed (2) Ulcer of left lower extremity with fat layer exposed: CODE(S): L97.922 - Non-pressure chronic ulcer of unspecified part of left lower leg with fat layer exposed (3) Venous insufficiency: CODE(S): I87.2 - Venous insufficiency (chronic) (peripheral) (4) Edema: CODE(S): R60.9 - Edema, unspecified QUALIFIERS: Edema type: unspecified Qualified Code(s): R60.9 - Edema, unspecified (5) History of CVA (cerebrovascular accident): CODE(S): Z86.73 - Personal history of transient ischemic attack (TIA), and cerebral infarction without residual deficits (6) Venous ulcer of left lower extremity with varicose veins: CODE(S): I83.029 - Varicose veins of left lower extremity with ulcer of unspecified site (7) Venous ulcer of both lower extremities with varicose veins: CODE(S): I83.019 - Varicose veins of right lower extremity with ulcer of unspecified site; I83.029 - Varicose veins of left lower extremity with ulcer of unspecified site (8) Venous ulcers of both lower extremities: CODE(S): I87.2 - Venous insufficiency (chronic) (peripheral) (9) Lymphedema: CODE(S): I89.0 - Lymphedema, not elsewhere classified PLAN: Plan Debridement performed today in clinic as annotated above. At home wound-care instructions: Epifix was applied to ulcers per windows consultant guidelines and covered with wound veil secured with steri-strips and will apply Fibracol as secondary dressing to ulcers, cover with ABD and wrap with gauze and use compression with tubigrips and continue lasix 3 tabs BID. Epifix #6 applied today. Off-loading: The patient was instructed to avoid pressure and friction on the affected areas. Reposition every 2 hours at minimum. Avoid prolonged standing and/or dangling of legs. When seated, feet should be elevated at chest level. Frequent ambulation is encouraged. Encouraged lymphedema pump use. Diet: Patient encouraged to increase protein intake while taking caution to avoid high carbohydrate and/or sugar intake. Labs/cultures/imaging: Follow-up: Return in 1 week for wound care follow up and have secondary dressing changed by home health Tuesday and Tuesday. Return sooner or report to the emergency room should symptoms worsen, or new symptoms arise. Note: [employer] speech recognition editing clerk software was used to create portions of this document. Sound-alike and misspelled words, as well as other editing clerk errors may be contained in the documentation.
== END 2023-04-08 23:59 | disposition home or self-care (01) ==
LOC: WC 09:30
PROVIDERS: PCP Family Medicine; Visit Provider Family Medicine
DX: L97.922 Non-pressure chronic ulcer of unspecified part of left lower leg with fat layer exposed (principal); L97.912 Non-pressure chronic ulcer of unspecified part of right lower leg with fat layer exposed; I83.029 Varicose veins of left lower extremity with ulcer of unspecified site; I83.019 Varicose veins of right lower extremity with ulcer of unspecified site; I87.2 Venous insufficiency (chronic) (peripheral); M79.10 Myalgia, unspecified site; M79.605 Pain in left leg; I89.0 Lymphedema, not elsewhere classified; Z86.73 Personal history of transient ischemic attack (TIA), and cerebral infarction without residual deficits; R60.0 Localized edema
CPT/HCPCS: 11042; 15271; 15272; Q4186

== ENCOUNTER 2023-05-06 10:00 | Outpatient (RCR) | payer MEDICARE, OTHER, SELFPAY ==
[2023-04-09 00:46] VITALS: BP 124/66; PULSE 68; RESP 18; TEMP 36.1
[2023-04-15 10:13] VITALS: BP 107/46; PULSE 67; RESP 18; TEMP 36.3
--- NOTE | 2023-04-15 15:02 | PN.PCM_ITS ---
History of Present Illness Date of Service: 04/15/23 Chief Complaint: venous ulcers of left lower extremity History of Wound: Mauricio is a 67 yo gentleman who is here today for evaluation of ulcers to to his bilateral lower legs. He has been treated multiple times in the past at the wound healing center for similar ulcers. The left LE ulcer started after he developed increased swelling and blisters of left leg in October and the right leg started sometime at the end of October. He was seen at PCP's office a culture was taken and it was resistant to several antibiotics. He was treated initially with Levaquin but had myalgias and then was treated with doxycycline which he finished 2 days ago. He denies improvement and is having swelling to his left calf and thigh. He has been having swelling to both lower extremities for many years and it has worsened over the last few months. He has not been compliant with compression. He has had increased pain especially in the left leg. He has clear yellow drainage and redness without odor or warmth. He is anti- coagulated on coumadin. He has been washing with Dial soap and witch ifrah. He had been using Collagen at times and using Calcium Alginate and covering with ABD pads during October. He was treated with 3M compression and Aquacel Ag. He was referred to the wound center for ongoing treatment. His ulcers have moderate to heavy drainage. He was recently hospitalized for cellulitis and edema for the last 10 days. He was in the hospital from 11/30/22 until 12/09/22 for treatment of cellulitis and edema. He underwent treatment with Vancomycin and IV lasix and compression. Discharged on 12/09/22 and is currently in the Skilled section of [facility]. He returned to his assisted living apartment on Tuesday12/21/22. Subjective Subjective He tolerated treatment with Epifix and fibracol and ABDs and tubigrips. His left lower leg ulcers are slightly improved this week but edema is about the same. Denies fever, chills, increased pain or increased drainage. Objective Data Objective Data Vital Signs: Vital Signs Temp Pulse Resp BP O2 Del Method 97.4 F L 67 18 107/46 L Room Air 04/15/23 10:13 04/15/23 10:13 04/15/23 10:13 04/15/23 10:13 04/15/23 10:13 Oxygen Delivery Method Room Air Physical Exam Const alert, oriented x3 and no apparent distress General Appearance: cooperative and comfortable HEENT normocephalic and head/scalp atraumatic Lymph Lymphatic: lymphedema moderate Resp normal respiratory effort Effort and Inspection: able to speak in complete sentences Cardio regular rate and regular rhythm Extremity General Extremity: edema bilateral lower extremity Details: severe Skin Wounds: wounds noted Wound Narrative: as in clinical panel Psych mental status grossly normal, thought process normal, cooperative and affect normal Debridement Note Debridement Note Wound debrided: left medial LE cluster Laterality: Left Type of Debridement: Excisional debridement Anesthesia Used: 4% Lidocaine Solution and 5% Lidocaine Gel Depth: Down to and including healthy tissue and in the subcutaneous layer Percentage of wound debrided: 100 Instrument Used: 7mm curette Tissue Removed: Yellow slough, devitalized tissue Severity: Fat Layer Exposed Amount of bleeding with debridement: Mild Bleeding Controlled with: Compression and gauze Patient tolerated procedure: Patient tolerated procedure well Post-Debridement Measurements and Additional Note: Post-Debridement Measurements/Treatment - Nurse 1 - General Ulcer Assessment Start: 04/15/23 10:13 Freq: Status: Active Protocol: ONDINA Activity Type Activity Date Activity User E-sign Co-sign Detail Recorded Client Recorded Date Recorded By Document 04/15/23 10:13 [id number] 04/15/23 10:28 04/15/23 10:13 - Today's Visit Information Type of service Follow-up Visit (Physician/CANCER GENETICS ASSISTANT ) Arrival Mode Ambulatory, Walker Transfer Assistance None Accompanied by self Patient Identification Verified (Name & Yes ) Patient Requires Transmission-Based No Precautions Safety Precautions Fall Prevention Vital Signs Temperature (97.8 F-99.1 F) 97.4 F L Temperature Source Temporal Pulse Rate (60-100) 67 Pulse Location Monitor Respiratory Rate (12-18) 18 Respiratory rate source Observation Oxygen Delivery Method Room Air Blood Pressure (90/60-120/80) 107/46 L Blood Pressure Mean (mm Hg) 66 Source Monitor Position Sitting Blood Pressure Location Right Arm History Since Last Visit- (Skip if this is Patient's initial visit) Have you changed medications since your No last visit? Any new allergies or adverse reactions No Had a fall/change in ADL's that may No increase risk of falls Have you been in the hospital since your No last visit? Has dressing in place as prescribed Yes Has compression in place as prescribed Yes Has offloadiing in place as prescribed N/A Experienced any changes in pain level or No management Left Footwear Regular Shoe Right Footwear Regular Shoe Pain Scale: 0-10 Numeric Is Patient Pain Free? Yes - Nurse 1 - General Ulcer Measurement Start: 04/15/23 10:13 Freq: Status: Active Protocol: Activity Type Activity Date Activity User E-sign Co-sign Detail Recorded Client Recorded Date Recorded By Document 04/15/23 10:13 MW [id number] 04/15/23 10:28 MW 04/15/23 10:13 Wound Center Nurse 1 #18 Left medial LE cluster -Combined with other wound No -Current Size (cm) - Length 5.3 -Current Size (cm) - Width 11.5 -Current Size (cm) - Depth 0.2 -Total Square Cm 60.95 -Photo Taken No -Epithelialization None Present -Tunneling No -Undermining/Tunneling No -Circular Undermining No -Exudate Amt Medium -Exudate Type Yellow/Green -Wound Margin Flat & Intact -Granulation Amt Large (67-100%) -Granulation Quality Red -Slough/Fibrin Yes -Necrosis Amt Small (1-33%) -Necrotic Tissue Type Adherent Slough -Structure Exposed N/A -Texture (Marie-wound Skin Appearance) Assessed, Localized Edema ,Scarring -Moisture (Marie-wound Skin Appearance) No Abnormality, Assessed -Color (Marie-wound Skin Appearance) Assessed, Hemosiderin Staining -Temperature (Marie-wound Skin No Abnormality Appearance) (Pt Warm) -Tenderness on Palpation (Marie-wound No Skin Appearance) -Ulcer Cleansing Rinsed/ Irrigated with Saline -Foul Odor after Cleansing No -Anesthetic Used 4% Lidocaine Solution,5% Lidocaine Gel Lower Limb Edema Present Yes Left Calf (cm) 43.5 Left Ankle (cm) 30.5 WC - Nurse 2 - General Ulcer CM Notes Start: 04/15/23 10:13 Freq: Status: Active Protocol: Activity Type Activity Date Activity User E-sign Co-sign Detail Recorded Client Recorded Date Recorded By Document 04/15/23 11:18 MW [id number] 04/15/23 11:30 MW 04/15/23 11:18 Wound Center Nurse 2 #18 Left medial LE cluster -Time 11:18 -Correct Patient Yes -Correct Side, Site, Position Yes -Correct Procedure Yes -Procedure Performed Yes -Type of Procedure Debridement -Clinical Debridement Subcutaneous -Tissue Removed Subcutaneous -Post Debridement (cm) - Length 6.0 -Post Debridement (cm) - Width 11.5 -Post Debridement (cm) - Depth 0.2 -Total Square (Post) (cm) 69.00 -Area of Debridement (cm) - Length 6.0 -Area of Debridement (cm) - Width 11.5 -Total Square (Area) (cm) 69.00 -Tunneling No -Undermining/Tunneling No -Circular Undermining No -Wound/Ulcer Outcome Not Healed -Ulcer Cleansing Rinsed/ Irrigated with Saline -Foul Odor after Cleansing No -Bioengineered Tissue Yes -Type of Bioengineered Tissue Epifix Mesh -Expiration Date 01/09/28 -Product Lot Number [id number] -Percent Used 100 -Lot number of Saline Used [id number] -Bleeding Controlled with Pressure -Treatment Response Procedure Tolerated Well -Offloading No -Debridement - Subq, 1st 20sq cm No -Apply Skin Sub - 1st 25 sq cm - Legs 1 -Epifix Mesh (per sq cm) 11 Pain Scale: 0-10 Numeric Is Patient Pain Free? Yes - Nurse 3 - General Ulcer D/C NN Start: 04/15/23 10:13 Freq: Status: Active Protocol: Activity Type Activity Date Activity User E-sign Co-sign Detail Recorded Client Recorded Date Recorded By Document 04/15/23 11:30 MW [id number] 04/15/23 11:31 MW 04/15/23 11:30 Wound Care Center Nurse 3 #18 Left medial LE cluster -Ulcer Cleansing Not Cleansed -Foul Odor after Cleansing No -Negative Pressure Wound Therapy N/A -Other Dressing ABD -Primary Dressing Covered/Secured with Dry Gauze & Roll Gauze, Secured with Tape Left -Lotion applied to leg before No compression wrap -Tubular Bandage Single Layer -Size of Tubigrip Used Size E -Size E ($) 1 Treatment Response Procedure Tolerated Well Pain Scale: 0-10 Numeric Is Patient Pain Free? Yes Teaching: Wound Center Dressing Your Wound -Person Taught Patient -Teaching Method Discussion -Response to teaching Verbalize understanding WC - Visit Discharge Discharge Condition Stable Ambulatory Status Ambulatory, Walker Transportation Private Auto Accompanied by self Medication Reconcilliation completed & No provided to patient/care provider Clinical Summary of Care Provided Yes Assessment/Plan Assessment/Plan (1) Ulcer of left lower extremity with fat layer exposed: CODE(S): L97.922 - Non-pressure chronic ulcer of unspecified part of left lower leg with fat layer exposed (2) Venous insufficiency: CODE(S): I87.2 - Venous insufficiency (chronic) (peripheral) (3) Edema: CODE(S): R60.9 - Edema, unspecified QUALIFIERS: Edema type: unspecified Qualified Code(s): R60.9 - Edema, unspecified (4) History of CVA (cerebrovascular accident): CODE(S): Z86.73 - Personal history of transient ischemic attack (TIA), and cerebral infarction without residual deficits (5) 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 At home wound-care instructions: Epifix was applied to ulcers per centerpuncher guidelines and covered with wound veil secured with steri-strips and will apply Aquacel Extra as secondary dressing to ulcers, cover with ABD and wrap with gauze and use compression with tubigrips and continue lasix 3 tabs BID. Epifix #7 applied today. Off-loading: The patient was instructed to avoid pressure and friction on the affected areas. Reposition every 2 hours at minimum. Avoid prolonged standing and/or dangling of legs. When seated, feet should be elevated at chest level. Frequent ambulation is encouraged. Encouraged lymphedema pump use. Diet: Patient encouraged to increase protein intake while taking caution to avoid high carbohydrate and/or sugar intake. Labs/cultures/imaging: Follow-up: Return in 1 week for wound care follow up and have secondary dressing changed by home health Tuesday and Tuesday. Return sooner or report to the emergency room should symptoms worsen, or new symptoms arise. Note: [employer] speech recognition vision teacher software was used to create portions of this document. Sound-alike and misspelled words, as well as other vision teacher errors may be contained in the documentation.
[2023-04-22 09:53] VITALS: BP 107/63; PULSE 62; RESP 20; TEMP 36.4
--- NOTE | 2023-04-22 14:44 | PN.PCM_ITS ---
History of Present Illness Date of Service: 04/22/23 Chief Complaint: venous ulcers of left lower extremity History of Wound: Mauricio is a 67 yo gentleman who is here today for evaluation of ulcers to to his bilateral lower legs. He has been treated multiple times in the past at the wound healing center for similar ulcers. The left LE ulcer started after he developed increased swelling and blisters of left leg in October and the right leg started sometime at the end of October. He was seen at PCP's office a culture was taken and it was resistant to several antibiotics. He was treated initially with Levaquin but had myalgias and then was treated with doxycycline which he finished 2 days ago. He denies improvement and is having swelling to his left calf and thigh. He has been having swelling to both lower extremities for many years and it has worsened over the last few months. He has not been compliant with compression. He has had increased pain especially in the left leg. He has clear yellow drainage and redness without odor or warmth. He is anti- coagulated on coumadin. He has been washing with Dial soap and witch ifrah. He had been using Collagen at times and using Calcium Alginate and covering with ABD pads during October. He was treated with 3M compression and Aquacel Ag. He was referred to the wound center for ongoing treatment. His ulcers have moderate to heavy drainage. He was recently hospitalized for cellulitis and edema for the last 10 days. He was in the hospital from 11/30/22 until 12/09/22 for treatment of cellulitis and edema. He underwent treatment with Vancomycin and IV lasix and compression. Discharged on 12/09/22 and is currently in [facility]. He returned to his assisted living apartment on Tuesday12/21/22. Subjective Subjective He tolerated treatment with Epifix and fibracol and ABDs and tubigrips. His left lower leg ulcers are not improved this week and edema is worse. He did not use pumps this week. Denies fever, chills, increased pain or increased drainage. Objective Data Objective Data Vital Signs: Vital Signs Temp Pulse Resp BP O2 Del Method 97.5 F L 62 20 H 107/63 Room Air 04/22/23 09:53 04/22/23 09:53 04/22/23 09:53 04/22/23 09:53 04/15/23 10:13 Oxygen Delivery Method Room Air Physical Exam Const alert, oriented x3 and no apparent distress General Appearance: cooperative and comfortable HEENT normocephalic and head/scalp atraumatic Lymph Lymphatic: lymphedema moderate Resp normal respiratory effort Effort and Inspection: able to speak in complete sentences Cardio regular rate and regular rhythm Extremity General Extremity: edema bilateral lower extremity Details: severe Skin Wounds: wounds noted Wound Narrative: as in clinical panel Psych mental status grossly normal, thought process normal, cooperative and affect normal Debridement Note Debridement Note Wound debrided: left medial LE cluster Laterality: Left Type of Debridement: Excisional debridement Anesthesia Used: 4% Lidocaine Solution and 5% Lidocaine Gel Depth: Down to and including healthy tissue and in the subcutaneous layer Percentage of wound debrided: 100 Instrument Used: 7mm curette Tissue Removed: Yellow slough, devitalized tissue Severity: Fat Layer Exposed Amount of bleeding with debridement: Mild Bleeding Controlled with: Compression and gauze Patient tolerated procedure: Patient tolerated procedure well Post-Debridement Measurements and Additional Note: Post-Debridement Measurements/Treatment - Nurse 1 - General Ulcer Assessment Start: 04/15/23 10:13 Freq: Status: Active Protocol: ONDINA Activity Type Activity Date Activity User E-sign Co-sign Detail Recorded Client Recorded Date Recorded By Document 04/15/23 10:13 MW [id number] 04/15/23 10:28 MW Document 04/22/23 09:53 DL [id number] 04/22/23 10:02 DL 04/15/23 04/22/23 10:13 09:53 - Today's Visit Information Type of service Follow-up Visit Follow-up Visit (Physician/COMPUTER ENGINEERING PROFESSOR (Physician/COMPUTER ENGINEERING PROFESSOR ) ) Arrival Mode Ambulatory, Ambulatory, Walker Walker Transfer Assistance None None Accompanied by self Patient Identification Verified (Name & Yes Yes ) Patient Requires Transmission-Based No No Precautions Safety Precautions Fall Prevention Vital Signs Temperature (97.8 F-99.1 F) 97.4 F L 97.5 F L Temperature Source Temporal Temporal Pulse Rate (60-100) 67 62 Pulse Location Monitor Monitor Respiratory Rate (12-18) 18 20 H Respiratory rate source Observation Observation Oxygen Delivery Method Room Air Blood Pressure (90/60-120/80) 107/46 L 107/63 Blood Pressure Mean (mm Hg) 66 77 Source Monitor Monitor Position Sitting Blood Pressure Location Right Arm History Since Last Visit- (Skip if this is Patient's initial visit) Have you changed medications since your No No last visit? Any new allergies or adverse reactions No No Had a fall/change in ADL's that may No No increase risk of falls Signs or symptoms of abuse and/or No neglect since last visit Have you been in the hospital since your No No last visit? Has dressing in place as prescribed Yes Yes Has compression in place as prescribed Yes No Has offloadiing in place as prescribed N/A N/A Experienced any changes in pain level or No No management Left Footwear Regular Shoe Right Footwear Regular Shoe Pain Scale: 0-10 Numeric Is Patient Pain Free? Yes Yes WC - Nurse 1 - General Ulcer Measurement Start: 04/15/23 10:13 Freq: Status: Active Protocol: Activity Type Activity Date Activity User E-sign Co-sign Detail Recorded Client Recorded Date Recorded By Document 04/15/23 10:13 MW [id number] 04/15/23 10:28 MW Document 04/22/23 09:53 DL [id number] 04/22/23 10:02 DL 04/15/23 04/22/23 10:13 09:53 Wound Center Nurse 1 #18 Left medial LE cluster -Combined with other wound No -Current Size (cm) - Length 5.3 6.2 -Current Size (cm) - Width 11.5 14.6 -Current Size (cm) - Depth 0.2 0.5 -Total Square Cm 60.95 90.52 -Photo Taken No -Epithelialization None Present -Tunneling No -Undermining/Tunneling No -Circular Undermining No -Exudate Amt Medium Medium -Exudate Type Yellow/Green Serosanguineous -Wound Margin Flat & Intact Distinct, Outline Attached -Granulation Amt Large (67-100%) Medium (34-66%) -Granulation Quality Red Red -Slough/Fibrin Yes -Necrosis Amt Small (1-33%) Medium (34-66%) -Necrotic Tissue Type Adherent Slough Adherent Slough -Structure Exposed N/A -Texture (Marie-wound Skin Appearance) Assessed, Scarring Localized Edema ,Scarring -Moisture (Marie-wound Skin Appearance) No Abnormality, Dry/Scaly Assessed -Color (Marie-wound Skin Appearance) Assessed, Hemosiderin Hemosiderin Staining Staining -Temperature (Marie-wound Skin No Abnormality No Abnormality Appearance) (Pt Warm) (Pt Warm) -Tenderness on Palpation (Marie-wound No No Skin Appearance) -Ulcer Cleansing Rinsed/ Soap and Water Irrigated with Saline -Foul Odor after Cleansing No -Anesthetic Used 4% Lidocaine 5% Lidocaine Solution,5% Gel Lidocaine Gel Lower Limb Edema Present Yes Right Calf (cm) 43.5 Right Ankle (cm) 28.5 Left Calf (cm) 43.5 44 Left Ankle (cm) 30.5 28.5 WC - Nurse 2 - General Ulcer CM Notes Start: 04/15/23 10:13 Freq: Status: Active Protocol: Activity Type Activity Date Activity User E-sign Co-sign Detail Recorded Client Recorded Date Recorded By Document 04/15/23 11:18 MW [id number] 04/15/23 11:30 MW Document 04/22/23 10:55 MW [id number] 04/22/23 11:10 MW 04/15/23 04/22/23 11:18 10:55 Wound Center Nurse 2 #18 Left medial LE cluster -Time 11:18 11:00 -Correct Patient Yes Yes -Correct Side, Site, Position Yes Yes -Correct Procedure Yes Yes -Procedure Performed Yes Yes -Type of Procedure Debridement Debridement -Clinical Debridement Subcutaneous Subcutaneous -Tissue Removed Subcutaneous Subcutaneous -Post Debridement (cm) - Length 6.0 6.2 -Post Debridement (cm) - Width 11.5 12.0 -Post Debridement (cm) - Depth 0.2 0.3 -Total Square (Post) (cm) 69.00 74.40 -Area of Debridement (cm) - Length 6.0 6.2 -Area of Debridement (cm) - Width 11.5 12.0 -Total Square (Area) (cm) 69.00 74.40 -Tunneling No No -Undermining/Tunneling No No -Circular Undermining No No -Wound/Ulcer Outcome Not Healed Not Healed -Ulcer Cleansing Rinsed/ Rinsed/ Irrigated with Irrigated with Saline Saline -Foul Odor after Cleansing No No -Bioengineered Tissue Yes No -Type of Bioengineered Tissue Epifix Mesh -Expiration Date 01/09/28 -Product Lot Number [id number] -Percent Used 100 -Lot number of Saline Used [id number] -Bleeding Controlled with Pressure Pressure -Treatment Response Procedure Procedure Tolerated Well Tolerated Well -Offloading No No -Debridement - Subq, 1st 20sq cm No Yes -Debridement, SubQ, ea addt'l 20sq cm 2 or part thereof -Apply Skin Sub - 1st 25 sq cm - Legs 1 -Epifix Mesh (per sq cm) 11 Pain Scale: 0-10 Numeric Is Patient Pain Free? Yes Yes WC - Nurse 3 - General Ulcer D/C NN Start: 04/15/23 10:13 Freq: Status: Active Protocol: Activity Type Activity Date Activity User E-sign Co-sign Detail Recorded Client Recorded Date Recorded By Document 04/15/23 11:30 MW [id number] 04/15/23 11:31 MW Document 04/22/23 11:56 [id number] 04/22/23 11:57 04/15/23 04/22/23 11:30 11:56 Wound Care Center Nurse 3 #18 Left medial LE cluster -Ulcer Cleansing Not Cleansed Rinsed/ Irrigated with Saline -Foul Odor after Cleansing No No -Negative Pressure Wound Therapy N/A -Primary Dressing Applied Aquacel AG 4x4 -Other Dressing ABD -Primary Dressing Covered/Secured with Dry Gauze & Dry Gauze & Roll Gauze, Roll Gauze, Secured with Secured with Tape Tape -Aquacel AG 4x4 1 Right -Tubular Bandage Single Layer -Size of Tubigrip Used Size E -Size E ($) 1 Left -Lotion applied to leg before No compression wrap -Tubular Bandage Single Layer Single Layer -Size of Tubigrip Used Size E Size E -Size E ($) 1 1 Treatment Response Procedure Tolerated Well Pain Scale: 0-10 Numeric Is Patient Pain Free? Yes Yes Teaching: Wound Center Dressing Your Wound -Person Taught Patient -Teaching Method Discussion -Response to teaching Verbalize understanding WC - Visit Discharge Discharge Condition Stable Stable Ambulatory Status Ambulatory, Ambulatory, Walker Walker Transportation Private Auto Accompanied by self Medication Reconcilliation completed & No Yes provided to patient/care provider Clinical Summary of Care Provided Yes Yes Assessment/Plan Assessment/Plan (1) Ulcer of left lower extremity with fat layer exposed: CODE(S): L97.922 - Non-pressure chronic ulcer of unspecified part of left lower leg with fat layer exposed (2) Venous insufficiency: CODE(S): I87.2 - Venous insufficiency (chronic) (peripheral) (3) Edema: CODE(S): R60.9 - Edema, unspecified QUALIFIERS: Edema type: unspecified Qualified Code(s): R60.9 - Edema, unspecified (4) History of CVA (cerebrovascular accident): CODE(S): Z86.73 - Personal history of transient ischemic attack (TIA), and cerebral infarction without residual deficits (5) 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 At home wound-care instructions: Aquacel Extra to ulcers, cover with ABD and wrap with gauze and use compression with tubigrips and continue lasix 3 tabs BID. Off-loading: The patient was instructed to avoid pressure and friction on the affected areas. Reposition every 2 hours at minimum. Avoid prolonged standing and/or dangling of legs. When seated, feet should be elevated at chest level. Frequent ambulation is encouraged. Encouraged lymphedema pump use. Diet: Patient encouraged to increase protein intake while taking caution to avoid high carbohydrate and/or sugar intake. Labs/cultures/imaging: Wound culture taken today. Follow-up: Return in 1 week for wound care follow up and have secondary dressing changed by home health Tuesday and Tuesday. Return sooner or report to the emergency room should symptoms worsen, or new symptoms arise. Note: [employer] speech recognition correspondence renew clerk software was used to create portions of this document. Sound-alike and misspelled words, as well as other correspondence renew clerk errors may be contained in the documentation.
--- NOTE | 2023-04-26 11:52 | WC ---
Spoke with Dr. Garcia concerning positive wound culture results. New order received for wound care to left medial LE to start Dakins 0.25% solution wet to dry to ulcer daily. Spoke with Juana from [facility] home health. She will have someone stop by wound center to picking supervisor Dakins solution to start new wound care order tomorrow at home health visit. Message left for patient.
[2023-04-29 10:12] VITALS: BP 94/46; PULSE 66; RESP 18; TEMP 36.1
[2023-04-29 11:19] VITALS: BP 114/64; PULSE 61
--- NOTE | 2023-05-06 08:17 | PN.PCM_ITS ---
History of Present Illness Date of Service: 04/29/23 Chief Complaint: venous ulcers of left lower extremity History of Wound: Mauricio is a 67 yo gentleman who is here today for evaluation of ulcers to to his bilateral lower legs. He has been treated multiple times in the past at the wound healing center for similar ulcers. The left LE ulcer started after he developed increased swelling and blisters of left leg in October and the right leg started sometime at the end of October. He was seen at PCP's office a culture was taken and it was resistant to several antibiotics. He was treated initially with Levaquin but had myalgias and then was treated with doxycycline which he finished 2 days ago. He denies improvement and is having swelling to his left calf and thigh. He has been having swelling to both lower extremities for many years and it has worsened over the last few months. He has not been compliant with compression. He has had increased pain especially in the left leg. He has clear yellow drainage and redness without odor or warmth. He is anti- coagulated on coumadin. He has been washing with Dial soap and witch ifrah. He had been using Collagen at times and using Calcium Alginate and covering with ABD pads during October. He was treated with 3M compression and Aquacel Ag. He was referred to the wound center for ongoing treatment. His ulcers have moderate to heavy drainage. He was recently hospitalized for cellulitis and edema for the last 10 days. He was in the hospital from 11/30/22 until 12/09/22 for treatment of cellulitis and edema. He underwent treatment with Vancomycin and IV lasix and compression. Discharged on 12/09/22 and is currently in the Skilled section of [facility]. He returned to his assisted living apartment on Tuesday12/21/22. Subjective Subjective He tolerated treatment with Dakins and ABDs and tubigrips. His left lower leg ulcers are not improved this week and edema is unchanged. He did use pumps this week. Denies fever, chills, increased pain or increased drainage. Objective Data Objective Data Vital Signs: Vital Signs Temp Pulse Resp BP O2 Del Method 97 F L 61 18 114/64 Room Air 04/29/23 10:12 04/29/23 11:19 04/29/23 10:12 04/29/23 11:19 04/15/23 10:13 Oxygen Delivery Method Room Air Lab / Micro Data Micro: Microbiology 04/22/23 11:00 Wound - Leg, Left Gram Stain - Final 04/22/23 11:00 Wound - Leg, Left Wound Culture - Final Pseudomonas aeruginosa 04/22/23 11:00 Wound - Leg, Left Anaerobic Culture - Final No anaerobic bacteria isolated. Physical Exam Const alert, oriented x3 and no apparent distress General Appearance: cooperative and comfortable HEENT normocephalic and head/scalp atraumatic Lymph Lymphatic: lymphedema moderate Resp normal respiratory effort Effort and Inspection: able to speak in complete sentences Cardio regular rate and regular rhythm Extremity General Extremity: edema bilateral lower extremity Details: severe Skin Wounds: wounds noted Wound Narrative: as in clinical panel Psych mental status grossly normal, thought process normal, cooperative and affect normal Debridement Note Debridement Note Wound debrided: left medial LE cluster Laterality: Left Type of Debridement: Excisional debridement Anesthesia Used: 4% Lidocaine Solution and 5% Lidocaine Gel Depth: Down to and including healthy tissue and in the subcutaneous layer Percentage of wound debrided: 100 Instrument Used: 7mm curette Tissue Removed: Yellow slough, devitalized tissue Severity: Fat Layer Exposed Amount of bleeding with debridement: Mild Bleeding Controlled with: Compression and gauze Patient tolerated procedure: Patient tolerated procedure well Post-Debridement Measurements and Additional Note: Post-Debridement Measurements/Treatment - Nurse 1 - General Ulcer Assessment Start: 04/15/23 10:13 Freq: Status: Active Protocol: ONDINA Activity Type Activity Date Activity User E-sign Co-sign Detail Recorded Client Recorded Date Recorded By Document 04/15/23 10:13 MW [id number] 04/15/23 10:28 MW Document 04/22/23 09:53 DL [id number] 04/22/23 10:02 DL Document 04/29/23 10:12 RB [id number] 04/29/23 10:17 RB 04/15/23 04/22/23 04/29/23 10:13 09:53 10:12 - Today's Visit Information Type of service Follow-up Visit Follow-up Visit Follow-up Visit (Physician/WEIGHER BULKER (Physician/WEIGHER BULKER (Physician/WEIGHER BULKER ) ) ) Arrival Mode Ambulatory, Ambulatory, Ambulatory Walker Walker Transfer Assistance None None None Accompanied by self Patient Identification Verified (Name & Yes Yes Yes ) Patient Requires Transmission-Based No No No Precautions Safety Precautions Fall Prevention Vital Signs Temperature (97.8 F-99.1 F) 97.4 F L 97.5 F L 97 F L Temperature Source Temporal Temporal Temporal Pulse Rate (60-100) 67 62 66 Pulse Location Monitor Monitor Monitor Respiratory Rate (12-18) 18 20 H 18 Respiratory rate source Observation Observation Observation Oxygen Delivery Method Room Air Blood Pressure (90/60-120/80) 107/46 L 107/63 94/46 L Blood Pressure Mean (mm Hg) 66 77 62 Source Monitor Monitor Monitor Position Sitting Semi-Fowlers Blood Pressure Location Right Arm Left Arm History Since Last Visit- (Skip if this is Patient's initial visit) Have you changed medications since your No No No last visit? Any new allergies or adverse reactions No No No Had a fall/change in ADL's that may No No No increase risk of falls Signs or symptoms of abuse and/or No No neglect since last visit Have you been in the hospital since your No No No last visit? Has dressing in place as prescribed Yes Yes Yes Has compression in place as prescribed Yes No No Has offloadiing in place as prescribed N/A N/A No Experienced any changes in pain level or No No No management Left Footwear Regular Shoe Right Footwear Regular Shoe Pain Scale: 0-10 Numeric Is Patient Pain Free? Yes Yes Yes WC - Nurse 1 - General Ulcer Measurement Start: 04/15/23 10:13 Freq: Status: Active Protocol: Activity Type Activity Date Activity User E-sign Co-sign Detail Recorded Client Recorded Date Recorded By Document 04/15/23 10:13 MW [id number] 04/15/23 10:28 MW Document 04/22/23 09:53 DL [id number] 04/22/23 10:02 DL Document 04/29/23 10:12 RB [id number] 04/29/23 10:17 RB 04/15/23 04/22/23 04/29/23 10:13 09:53 10:12 Wound Center Nurse 1 #18 Left medial LE cluster -Combined with other wound No No -Current Size (cm) - Length 5.3 6.2 6.2 -Current Size (cm) - Width 11.5 14.6 15 -Current Size (cm) - Depth 0.2 0.5 0.3 -Total Square Cm 60.95 90.52 93.0 -Photo Taken No Yes -Epithelialization None Present -Tunneling No No -Undermining/Tunneling No No -Circular Undermining No No -Exudate Amt Medium Medium Large -Exudate Type Yellow/Green Serosanguineous Serosanguineous -Wound Margin Flat & Intact Distinct, Distinct, Outline Outline Attached Attached -Granulation Amt Large (67-100%) Medium (34-66%) Medium (34-66%) -Granulation Quality Red Red [place] -Slough/Fibrin Yes Yes -Necrosis Amt Small (1-33%) Medium (34-66%) Medium (34-66%) -Necrotic Tissue Type Adherent Slough Adherent Slough Adherent Slough -Structure Exposed N/A N/A -Texture (Marie-wound Skin Appearance) Assessed, Scarring Assessed, Localized Edema Localized Edema ,Scarring -Moisture (Marie-wound Skin Appearance) No Abnormality, Dry/Scaly Assessed Assessed -Color (Marie-wound Skin Appearance) Assessed, Hemosiderin Erythema Hemosiderin Staining Staining -Temperature (Marie-wound Skin No Abnormality No Abnormality No Abnormality Appearance) (Pt Warm) (Pt Warm) (Pt Warm) -Tenderness on Palpation (Marie-wound No No Skin Appearance) -Ulcer Cleansing Rinsed/ Soap and Water Wound Cleanser Irrigated with Saline -Foul Odor after Cleansing No No -Anesthetic Used 4% Lidocaine 5% Lidocaine 5% Lidocaine Solution,5% Gel Gel Lidocaine Gel Lower Limb Edema Present Yes Yes Right Calf (cm) 43.5 Right Ankle (cm) 28.5 Left Calf (cm) 43.5 44 44 Left Ankle (cm) 30.5 28.5 28.5 WC - Nurse 2 - General Ulcer CM Notes Start: 04/15/23 10:13 Freq: Status: Active Protocol: Activity Type Activity Date Activity User E-sign Co-sign Detail Recorded Client Recorded Date Recorded By Document 04/15/23 11:18 MW [id number] 04/15/23 11:30 MW Document 04/22/23 10:55 MW [id number] 04/22/23 11:10 MW Document 04/29/23 10:47 MW [id number] 04/29/23 10:59 MW 04/15/23 04/22/23 04/29/23 11:18 10:55 10:47 Wound Center Nurse 2 #18 Left medial LE cluster -Time 11:18 11:00 10:48 -Correct Patient Yes Yes Yes -Correct Side, Site, Position Yes Yes Yes -Correct Procedure Yes Yes Yes -Procedure Performed Yes Yes Yes -Type of Procedure Debridement Debridement Debridement -Clinical Debridement Subcutaneous Subcutaneous Subcutaneous -Tissue Removed Subcutaneous Subcutaneous Subcutaneous -Post Debridement (cm) - Length 6.0 6.2 6.2 -Post Debridement (cm) - Width 11.5 12.0 13.0 -Post Debridement (cm) - Depth 0.2 0.3 0.2 -Total Square (Post) (cm) 69.00 74.40 80.60 -Area of Debridement (cm) - Length 6.0 6.2 6.2 -Area of Debridement (cm) - Width 11.5 12.0 13.0 -Total Square (Area) (cm) 69.00 74.40 80.60 -Tunneling No No No -Undermining/Tunneling No No No -Circular Undermining No No No -Wound/Ulcer Outcome Not Healed Not Healed Not Healed -Ulcer Cleansing Rinsed/ Rinsed/ Rinsed/ Irrigated with Irrigated with Irrigated with Saline Saline Saline -Foul Odor after Cleansing No No No -Bioengineered Tissue Yes No No -Type of Bioengineered Tissue Epifix Mesh -Expiration Date 01/09/28 -Product Lot Number [id number] -Percent Used 100 -Lot number of Saline Used [id number] -Bleeding Controlled with Pressure Pressure Pressure -Treatment Response Procedure Procedure Procedure Tolerated Well Tolerated Well Tolerated Well -Offloading No No No -Debridement - Subq, 1st 20sq cm No Yes Yes -Debridement, SubQ, ea addt'l 20sq cm 2 4 or part thereof -Apply Skin Sub - 1st 25 sq cm - Legs 1 -Epifix Mesh (per sq cm) 11 Pain Scale: 0-10 Numeric Is Patient Pain Free? Yes Yes Yes WC - Nurse 3 - General Ulcer D/C NN Start: 04/15/23 10:13 Freq: Status: Active Protocol: Activity Type Activity Date Activity User E-sign Co-sign Detail Recorded Client Recorded Date Recorded By Document 04/15/23 11:30 MW [id number] 04/15/23 11:31 MW Document 04/22/23 11:56 [id number] 04/22/23 11:57 JF Document 04/29/23 11:19 RB [id number] 04/29/23 11:21 RB 04/15/23 04/22/23 04/29/23 11:30 11:56 11:19 Wound Care Center Nurse 3 #18 Left medial LE cluster -Ulcer Cleansing Not Cleansed Rinsed/ Rinsed/ Irrigated with Irrigated with Saline Saline -Foul Odor after Cleansing No No -Negative Pressure Wound Therapy N/A -Primary Dressing Applied Aquacel AG 4x4 -Other Dressing ABD dakins moistened gauze -Primary Dressing Covered/Secured with Dry Gauze & Dry Gauze & Dry Gauze,Dry Roll Gauze, Roll Gauze, Gauze & Roll Secured with Secured with Gauze,Secured Tape Tape with Tape -Other Covering abd -Aquacel AG 4x4 1 Right -Tubular Bandage Single Layer Single Layer -Size of Tubigrip Used Size E Size E -Size E ($) 1 1 Left -Lotion applied to leg before No compression wrap -Tubular Bandage Single Layer Single Layer Single Layer -Size of Tubigrip Used Size E Size E Size E -Size E ($) 1 1 1 Treatment Response Procedure Procedure Tolerated Well Tolerated Well Vital Signs Pulse Rate (60-100) 61 Pulse Location Monitor Blood Pressure (90/60-120/80) 114/64 Blood Pressure Mean (mm Hg) 80 Pain Scale: 0-10 Numeric Is Patient Pain Free? Yes Yes Yes Teaching: Wound Center Dressing Your Wound -Person Taught Patient -Teaching Method Discussion -Response to teaching Verbalize understanding WC - Visit Discharge Discharge Condition Stable Stable Stable Ambulatory Status Ambulatory, Ambulatory, Ambulatory, Walker Walker Wheelchair Transportation Private Auto Private Auto Accompanied by self Medication Reconcilliation completed & No Yes No provided to patient/care provider Clinical Summary of Care Provided Yes Yes Yes Assessment/Plan Assessment/Plan (1) Ulcer of left lower extremity with fat layer exposed: CODE(S): L97.922 - Non-pressure chronic ulcer of unspecified part of left lower leg with fat layer exposed (2) Venous insufficiency: CODE(S): I87.2 - Venous insufficiency (chronic) (peripheral) (3) Edema: CODE(S): R60.9 - Edema, unspecified QUALIFIERS: Edema type: unspecified Qualified Code(s): R60.9 - Edema, unspecified (4) History of CVA (cerebrovascular accident): CODE(S): Z86.73 - Personal history of transient ischemic attack (TIA), and cerebral infarction without residual deficits (5) 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 At home wound-care instructions: Continue Dakins, cover with ABD and wrap with gauze and use compression with tubigrips and continue lasix 3 tabs BID. Hold Epifix due to infection. Off-loading: The patient was instructed to avoid pressure and friction on the affected areas. Reposition every 2 hours at minimum. Avoid prolonged standing and/or dangling of legs. When seated, feet should be elevated at chest level. Frequent ambulation is encouraged. Encouraged lymphedema pump use. Diet: Patient encouraged to increase protein intake while taking caution to avoid high carbohydrate and/or sugar intake. Labs/cultures/imaging: Wound culture showed rare Pseudomonas that is resistant to oral antibiotics. Follow-up: Return in 1 week for wound care follow up and have secondary dressing changed by home health Tuesday and Tuesday. Return sooner or report to the emergency room should symptoms worsen, or new symptoms arise. Note: [employer] speech recognition agricultural equipment salesperson software was used to create portions of this document. Sound-alike and misspelled words, as well as other agricultural equipment salesperson errors may be contained in the documentation.
[2023-05-06 10:14] VITALS: BP 99/58; PULSE 68; RESP 18; TEMP 36.1
--- NOTE | 2023-05-06 12:36 | PCM.WC.PN ---
History of Present Illness Date of Service: 04/29/23 Chief Complaint: venous ulcers of left lower extremity History of Wound: Mauricio is a 67 yo gentleman who is here today for evaluation of ulcers to to his bilateral lower legs. He has been treated multiple times in the past at the wound healing center for similar ulcers. The left LE ulcer started after he developed increased swelling and blisters of left leg in October and the right leg started sometime at the end of October. He was seen at PCP's office a culture was taken and it was resistant to several antibiotics. He was treated initially with Levaquin but had myalgias and then was treated with doxycycline which he finished 2 days ago. He denies improvement and is having swelling to his left calf and thigh. He has been having swelling to both lower extremities for many years and it has worsened over the last few months. He has not been compliant with compression. He has had increased pain especially in the left leg. He has clear yellow drainage and redness without odor or warmth. He is anti-coagulated on coumadin. He has been washing with Dial soap and witch ifrah. He had been using Collagen at times and using Calcium Alginate and covering with ABD pads during October. He was treated with 3M compression and Aquacel Ag. He was referred to the wound center for ongoing treatment. His ulcers have moderate to heavy drainage. He was recently hospitalized for cellulitis and edema for the last 10 days. He was in the hospital from 11/30/22 until 12/09/22 for treatment of cellulitis and edema. He underwent treatment with Vancomycin and IV lasix and compression. Discharged on 12/09/22 and is currently in the Skilled section of [facility]. He returned to his assisted living apartment on Tuesday12/21/22. Subjective Subjective He did not tolerate treatment with Dakins and ABDs and tubigrips. Tried switching to Gentamicin topical ointment and Aquacel Ag and ABD but this made his pain worse. His left lower leg ulcers are not improved this week and edema is worse. He did use pumps this week. Denies fever, chills, increased pain or increased drainage. Objective Data Objective Data Vital Signs: Vital Signs Temp Pulse Resp BP O2 Del Method 97 F L 68 18 99/58 L Room Air 05/06/23 10:14 05/06/23 10:14 05/06/23 10:14 05/06/23 10:14 04/15/23 10:13 Oxygen Delivery Method Room Air Lab / Micro Data Micro: Microbiology 04/22/23 11:00 Wound - Leg, Left Gram Stain - Final 04/22/23 11:00 Wound - Leg, Left Wound Culture - Final Pseudomonas aeruginosa 04/22/23 11:00 Wound - Leg, Left Anaerobic Culture - Final No anaerobic bacteria isolated. Physical Exam Const alert, oriented x3 and no apparent distress General Appearance: cooperative and comfortable HEENT normocephalic and head/scalp atraumatic Lymph Lymphatic: lymphedema moderate Resp normal respiratory effort Effort and Inspection: able to speak in complete sentences Cardio regular rate and regular rhythm Extremity General Extremity: edema bilateral lower extremity Details: severe Skin Wounds: wounds noted Wound Narrative: as in clinical panel Psych mental status grossly normal, thought process normal, cooperative and affect normal Debridement Note Debridement Note Wound debrided: left medial LE cluster Laterality: Left Type of Debridement: Excisional debridement Anesthesia Used: 4% Lidocaine Solution and 5% Lidocaine Gel Depth: Down to and including healthy tissue and in the subcutaneous layer Percentage of wound debrided: 100 Instrument Used: 7mm curette Tissue Removed: Yellow slough, devitalized tissue Severity: Fat Layer Exposed Amount of bleeding with debridement: Mild Bleeding Controlled with: Compression and gauze Patient tolerated procedure: Patient tolerated procedure well Post-Debridement Measurements and Additional Note: Post-Debridement Measurements/Treatment - Nurse 1 - General Ulcer Assessment Start: 04/15/23 10:13 Freq: Status: Active Protocol: ONDINA Activity Type Activity Date Activity User E-sign Co-sign Detail Recorded Client Recorded Date Recorded By Document 04/15/23 10:13 MW [id number] 04/15/23 10:28 MW Document 04/22/23 09:53 DL [id number] 04/22/23 10:02 DL Document 04/29/23 10:12 RB [id number] 04/29/23 10:17 RB Document 05/06/23 10:14 RB [id number] 05/06/23 10:17 RB 04/15/23 04/22/23 04/29/23 10:13 09:53 10:12 - Today's Visit Information Type of service Follow-up Visit Follow-up Visit Follow-up Visit (Physician/APPLICATION SUPPORT (Physician/APPLICATION SUPPORT (Physician/APPLICATION SUPPORT ) ) ) Arrival Mode Ambulatory, Ambulatory, Ambulatory Walker Walker Transfer Assistance None None None Accompanied by self Patient Identification Verified (Name & Yes Yes Yes ) Patient Requires Transmission-Based No No No Precautions Safety Precautions Fall Prevention Vital Signs Temperature (97.8 F-99.1 F) 97.4 F L 97.5 F L 97 F L Temperature Source Temporal Temporal Temporal Pulse Rate (60-100) 67 62 66 Pulse Location Monitor Monitor Monitor Respiratory Rate (12-18) 18 20 H 18 Respiratory rate source Observation Observation Observation Oxygen Delivery Method Room Air Blood Pressure (90/60-120/80) 107/46 L 107/63 94/46 L Blood Pressure Mean (mm Hg) 66 77 62 Source Monitor Monitor Monitor Position Sitting Semi-Fowlers Blood Pressure Location Right Arm Left Arm History Since Last Visit- (Skip if this is Patient's initial visit) Have you changed medications since your No No No last visit? Any new allergies or adverse reactions No No No Had a fall/change in ADL's that may No No No increase risk of falls Signs or symptoms of abuse and/or No No neglect since last visit Have you been in the hospital since your No No No last visit? Has dressing in place as prescribed Yes Yes Yes Has compression in place as prescribed Yes No No Has offloadiing in place as prescribed N/A N/A No Experienced any changes in pain level or No No No management Left Footwear Regular Shoe Right Footwear Regular Shoe Pain Scale: 0-10 Numeric Is Patient Pain Free? Yes Yes Yes 05/06/23 10:14 - Today's Visit Information Type of service Follow-up Visit (Physician/APPLICATION SUPPORT ) Arrival Mode Ambulatory Transfer Assistance None Accompanied by Patient Identification Verified (Name & Yes ) Patient Requires Transmission-Based No Precautions Safety Precautions Vital Signs Temperature (97.8 F-99.1 F) 97 F L Temperature Source Temporal Pulse Rate (60-100) 68 Pulse Location Monitor Respiratory Rate (12-18) 18 Respiratory rate source Observation Oxygen Delivery Method Blood Pressure (90/60-120/80) 99/58 L Blood Pressure Mean (mm Hg) 71 Source Monitor Position Semi-Fowlers Blood Pressure Location Left Arm History Since Last Visit- (Skip if this is Patient's initial visit) Have you changed medications since your No last visit? Any new allergies or adverse reactions No Had a fall/change in ADL's that may No increase risk of falls Signs or symptoms of abuse and/or No neglect since last visit Have you been in the hospital since your No last visit? Has dressing in place as prescribed Yes Has compression in place as prescribed Yes Has offloadiing in place as prescribed No Experienced any changes in pain level or No management Left Footwear Right Footwear Pain Scale: 0-10 Numeric Is Patient Pain Free? Yes WC - Nurse 1 - General Ulcer Measurement Start: 04/15/23 10:13 Freq: Status: Active Protocol: Activity Type Activity Date Activity User E-sign Co-sign Detail Recorded Client Recorded Date Recorded By Document 04/15/23 10:13 MW [id number] 04/15/23 10:28 MW Document 04/22/23 09:53 DL [id number] 04/22/23 10:02 DL Document 04/29/23 10:12 RB [id number] 04/29/23 10:17 RB Document 05/06/23 10:14 RB [id number] 05/06/23 10:17 RB 04/15/23 04/22/23 04/29/23 10:13 09:53 10:12 Wound Center Nurse 1 #18 Left medial LE cluster -Combined with other wound No No -Current Size (cm) - Length 5.3 6.2 6.2 -Current Size (cm) - Width 11.5 14.6 15 -Current Size (cm) - Depth 0.2 0.5 0.3 -Total Square Cm 60.95 90.52 93.0 -Photo Taken No Yes -Epithelialization None Present -Tunneling No No -Undermining/Tunneling No No -Circular Undermining No No -Exudate Amt Medium Medium Large -Exudate Type Yellow/Green Serosanguineous Serosanguineous -Wound Margin Flat & Intact Distinct, Distinct, Outline Outline Attached Attached -Granulation Amt Large (67-100%) Medium (34-66%) Medium (34-66%) -Granulation Quality Red Red Bystrom -Slough/Fibrin Yes Yes -Necrosis Amt Small (1-33%) Medium (34-66%) Medium (34-66%) -Necrotic Tissue Type Adherent Slough Adherent Slough Adherent Slough -Structure Exposed N/A N/A -Texture (Marie-wound Skin Appearance) Assessed, Scarring Assessed, Localized Edema Localized Edema ,Scarring -Moisture (Marie-wound Skin Appearance) No Abnormality, Dry/Scaly Assessed Assessed -Color (Marie-wound Skin Appearance) Assessed, Hemosiderin Erythema Hemosiderin Staining Staining -Temperature (Marie-wound Skin No Abnormality No Abnormality No Abnormality Appearance) (Pt Warm) (Pt Warm) (Pt Warm) -Tenderness on Palpation (Marie-wound No No Skin Appearance) -Ulcer Cleansing Rinsed/ Soap and Water Wound Cleanser Irrigated with Saline -Foul Odor after Cleansing No No -Anesthetic Used 4% Lidocaine 5% Lidocaine 5% Lidocaine Solution,5% Gel Gel Lidocaine Gel Lower Limb Edema Present Yes Yes Right Calf (cm) 43.5 Right Ankle (cm) 28.5 Left Calf (cm) 43.5 44 44 Left Ankle (cm) 30.5 28.5 28.5 05/06/23 10:14 Wound Center Nurse 1 #18 Left medial LE cluster -Combined with other wound No -Current Size (cm) - Length 0.1 -Current Size (cm) - Width 0.1 -Current Size (cm) - Depth 0.1 -Total Square Cm 0.01 -Photo Taken -Epithelialization -Tunneling No -Undermining/Tunneling No -Circular Undermining No -Exudate Amt Medium -Exudate Type Serosanguineous -Wound Margin Distinct, Outline Attached -Granulation Amt Medium (34-66%) -Granulation Quality Bystrom -Slough/Fibrin Yes -Necrosis Amt Medium (34-66%) -Necrotic Tissue Type Adherent Slough -Structure Exposed N/A -Texture (Marie-wound Skin Appearance) Assessed -Moisture (Marie-wound Skin Appearance) Assessed -Color (Marie-wound Skin Appearance) Assessed -Temperature (Marie-wound Skin No Abnormality Appearance) (Pt Warm) -Tenderness on Palpation (Marie-wound No Skin Appearance) -Ulcer Cleansing Wound Cleanser -Foul Odor after Cleansing No -Anesthetic Used 5% Lidocaine Gel Lower Limb Edema Present Yes Right Calf (cm) Right Ankle (cm) Left Calf (cm) 49.5 Left Ankle (cm) 31.5 WC - Nurse 2 - General Ulcer CM Notes Start: 04/15/23 10:13 Freq: Status: Active Protocol: Activity Type Activity Date Activity User E-sign Co-sign Detail Recorded Client Recorded Date Recorded By Document 04/15/23 11:18 MW [id number] 04/15/23 11:30 MW Document 04/22/23 10:55 MW [id number] 04/22/23 11:10 MW Document 04/29/23 10:47 MW [id number] 04/29/23 10:59 MW Document 05/06/23 10:33 MW [id number] 05/06/23 10:50 MW 04/15/23 04/22/23 04/29/23 11:18 10:55 10:47 Wound Center Nurse 2 #18 Left medial LE cluster -Time 11:18 11:00 10:48 -Correct Patient Yes Yes Yes -Correct Side, Site, Position Yes Yes Yes -Correct Procedure Yes Yes Yes -Procedure Performed Yes Yes Yes -Type of Procedure Debridement Debridement Debridement -Clinical Debridement Subcutaneous Subcutaneous Subcutaneous -Tissue Removed Subcutaneous Subcutaneous Subcutaneous -Post Debridement (cm) - Length 6.0 6.2 6.2 -Post Debridement (cm) - Width 11.5 12.0 13.0 -Post Debridement (cm) - Depth 0.2 0.3 0.2 -Total Square (Post) (cm) 69.00 74.40 80.60 -Area of Debridement (cm) - Length 6.0 6.2 6.2 -Area of Debridement (cm) - Width 11.5 12.0 13.0 -Total Square (Area) (cm) 69.00 74.40 80.60 -Tunneling No No No -Undermining/Tunneling No No No -Circular Undermining No No No -Wound/Ulcer Outcome Not Healed Not Healed Not Healed -Ulcer Cleansing Rinsed/ Rinsed/ Rinsed/ Irrigated with Irrigated with Irrigated with Saline Saline Saline -Foul Odor after Cleansing No No No -Bioengineered Tissue Yes No No -Type of Bioengineered Tissue Epifix Mesh -Expiration Date 01/09/28 -Product Lot Number [id number] -Percent Used 100 -Lot number of Saline Used [id number] -Bleeding Controlled with Pressure Pressure Pressure -Treatment Response Procedure Procedure Procedure Tolerated Well Tolerated Well Tolerated Well -Offloading No No No -Debridement - Subq, 1st 20sq cm No Yes Yes -Debridement, SubQ, ea addt'l 20sq cm 2 4 or part thereof -Apply Skin Sub - 1st 25 sq cm - Legs 1 -Epifix Mesh (per sq cm) 11 Pain Scale: 0-10 Numeric Is Patient Pain Free? Yes Yes Yes 05/06/23 10:33 Wound Center Nurse 2 #18 Left medial LE cluster -Time 10:41 -Correct Patient Yes -Correct Side, Site, Position Yes -Correct Procedure Yes -Procedure Performed Yes -Type of Procedure Debridement -Clinical Debridement Subcutaneous -Tissue Removed Subcutaneous -Post Debridement (cm) - Length 6.5 -Post Debridement (cm) - Width 13.0 -Post Debridement (cm) - Depth 0.2 -Total Square (Post) (cm) 84.50 -Area of Debridement (cm) - Length 6.5 -Area of Debridement (cm) - Width 13.0 -Total Square (Area) (cm) 84.50 -Tunneling No -Undermining/Tunneling No -Circular Undermining No -Wound/Ulcer Outcome Not Healed -Ulcer Cleansing Rinsed/ Irrigated with Saline -Foul Odor after Cleansing No -Bioengineered Tissue No -Type of Bioengineered Tissue -Expiration Date -Product Lot Number -Percent Used -Lot number of Saline Used -Bleeding Controlled with Pressure -Treatment Response Procedure Tolerated Well -Offloading No -Debridement - Subq, 1st 20sq cm Yes -Debridement, SubQ, ea addt'l 20sq cm 4 or part thereof -Apply Skin Sub - 1st 25 sq cm - Legs -Epifix Mesh (per sq cm) Pain Scale: 0-10 Numeric Is Patient Pain Free? Yes - Nurse 3 - General Ulcer D/C NN Start: 04/15/23 10:13 Freq: Status: Active Protocol: Activity Type Activity Date Activity User E-sign Co-sign Detail Recorded Client Recorded Date Recorded By Document 04/15/23 11:30 MW [id number] 04/15/23 11:31 MW Document 04/22/23 11:56 JF [id number] 04/22/23 11:57 JF Document 04/29/23 11:19 RB [id number] 04/29/23 11:21 RB Document 05/06/23 10:50 MW [id number] 05/06/23 11:00 MW 04/15/23 04/22/23 04/29/23 11:30 11:56 11:19 Wound Care Center Nurse 3 #18 Left medial LE cluster -Ulcer Cleansing Not Cleansed Rinsed/ Rinsed/ Irrigated with Irrigated with Saline Saline -Foul Odor after Cleansing No No -Negative Pressure Wound Therapy N/A -Primary Dressing Applied Aquacel AG 4x4 -Other Dressing ABD dakins moistened gauze -Primary Dressing Covered/Secured with Dry Gauze & Dry Gauze & Dry Gauze,Dry Roll Gauze, Roll Gauze, Gauze & Roll Secured with Secured with Gauze,Secured Tape Tape with Tape -Other Covering abd -Aquacel AG 4x4 1 Right -Tubular Bandage Single Layer Single Layer -Size of Tubigrip Used Size E Size E -Size E ($) 1 1 Left -Lotion applied to leg before No compression wrap -Tubular Bandage Single Layer Single Layer Single Layer -Size of Tubigrip Used Size E Size E Size E -Size E ($) 1 1 1 Treatment Response Procedure Procedure Tolerated Well Tolerated Well Vital Signs Pulse Rate (60-100) 61 Pulse Location Monitor Blood Pressure (90/60-120/80) 114/64 Blood Pressure Mean (mm Hg) 80 Pain Scale: 0-10 Numeric Is Patient Pain Free? Yes Yes Yes Teaching: Wound Center Control Swelling with Leg Elevation -Person Taught -Teaching Method -Response to teaching Dressing Your Wound -Person Taught Patient -Teaching Method Discussion -Response to teaching Verbalize understanding WC - Visit Discharge Discharge Condition Stable Stable Stable Ambulatory Status Ambulatory, Ambulatory, Ambulatory, Walker Walker Wheelchair Transportation Private Auto Private Auto Accompanied by self Medication Reconcilliation completed & No Yes No provided to patient/care provider Clinical Summary of Care Provided Yes Yes Yes 05/06/23 10:50 Wound Care Center Nurse 3 #18 Left medial LE cluster -Ulcer Cleansing Rinsed/ Irrigated with Saline -Foul Odor after Cleansing No -Negative Pressure Wound Therapy N/A -Primary Dressing Applied -Other Dressing Dakins wet to dry -Primary Dressing Covered/Secured with Dry Gauze & Roll Gauze, Secured with Tape -Other Covering ABD pad -Aquacel AG 4x4 Right -Tubular Bandage -Size of Tubigrip Used -Size E ($) Left -Lotion applied to leg before No compression wrap -Tubular Bandage Single Layer -Size of Tubigrip Used Size E -Size E ($) 1 Treatment Response Procedure Tolerated Well Vital Signs Pulse Rate (60-100) Pulse Location Blood Pressure (90/60-120/80) Blood Pressure Mean (mm Hg) Pain Scale: 0-10 Numeric Is Patient Pain Free? Yes Teaching: Wound Center Control Swelling with Leg Elevation -Person Taught Patient -Teaching Method Discussion -Response to teaching Verbalize understanding Dressing Your Wound -Person Taught -Teaching Method -Response to teaching WC - Visit Discharge Discharge Condition Stable Ambulatory Status Ambulatory, Wheelchair Transportation Private Auto Accompanied by nessa Medication Reconcilliation completed & No provided to patient/care provider Clinical Summary of Care Provided Yes Assessment/Plan Assessment/Plan (1) Ulcer of left lower extremity with fat layer exposed: CODE(S): L97.922 - Non-pressure chronic ulcer of unspecified part of left lower leg with fat layer exposed (2) Venous insufficiency: CODE(S): I87.2 - Venous insufficiency (chronic) (peripheral) (3) Edema: CODE(S): R60.9 - Edema, unspecified QUALIFIERS: Edema type: unspecified Qualified Code(s): R60.9 - Edema, unspecified (4) History of CVA (cerebrovascular accident): CODE(S): Z86.73 - Personal history of transient ischemic attack (TIA), and cerebral infarction without residual deficits (5) 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 At home wound-care instructions: Continue Dakins, cover with ABD and wrap with gauze and use compression with tubigrips and continue lasix 3 tabs BID. If unable to tolerate Dakins, then would have him use Aquacel Ag and ABD and gauze and may need to do IV antibiotic treatment for Pseudomonas. Hold Epifix due to infection. Off-loading: The patient was instructed to avoid pressure and friction on the affected areas. Reposition every 2 hours at minimum. Avoid prolonged standing and/or dangling of legs. When seated, feet should be elevated at chest level. Frequent ambulation is encouraged. Encouraged lymphedema pump use. Diet: Patient encouraged to increase protein intake while taking caution to avoid high carbohydrate and/or sugar intake. Labs/cultures/imaging: Wound culture showed rare Pseudomonas that is resistant to oral antibiotics. Wound culture repeated today and if increased amount of Pseudomonas then will proceed with IV antibiotic treatment. Follow-up: Return in 1 week for wound care follow up and have secondary dressing changed by home health Tuesday and Tuesday. Return sooner or report to the emergency room should symptoms worsen, or new symptoms arise. Note: [employer] speech recognition maintenance shop laborer software was used to create portions of this document. Sound-alike and misspelled words, as well as other maintenance shop laborer errors may be contained in the documentation.
== END 2023-05-09 23:59 | disposition home or self-care (01) ==
LOC: WC 10:00
PROVIDERS: PCP Family Medicine; Visit Provider Family Medicine
DX: L97.922 Non-pressure chronic ulcer of unspecified part of left lower leg with fat layer exposed (principal); I83.029 Varicose veins of left lower extremity with ulcer of unspecified site; I87.2 Venous insufficiency (chronic) (peripheral); R60.9 Edema, unspecified; Z86.73 Personal history of transient ischemic attack (TIA), and cerebral infarction without residual deficits; I89.0 Lymphedema, not elsewhere classified
CPT/HCPCS: 11042; 11045; 15271; 87070; 87075; 87077; 87186; 87205; Q4186

== ENCOUNTER 2023-06-01 12:38 | Outpatient (RCR) | payer MEDICARE, OTHER, SELFPAY ==
[2023-06-01 13:35] LABS: Vitamin D,25 Hydroxy 56.4 ng/mL
== END 2023-06-01 18:00 | disposition home or self-care (01) ==
LOC: LAB 12:38
PROVIDERS: PCP Family Medicine; Referring Provider Family Medicine; Visit Provider Family Medicine
DX: I83.022 Varicose veins of left lower extremity with ulcer of calf (principal); L97.222 Non-pressure chronic ulcer of left calf with fat layer exposed; I89.0 Lymphedema, not elsewhere classified; E55.9 Vitamin D deficiency, unspecified
CPT/HCPCS: 82306

== ENCOUNTER 2023-06-03 10:00 | Outpatient (RCR) | payer MEDICARE, OTHER, SELFPAY ==
[2023-05-10 00:31] VITALS: BP 99/58; PULSE 68; RESP 18; TEMP 36.1
[2023-05-13 10:23] VITALS: BP 104/64; PULSE 60; RESP 18; TEMP 36.1
--- NOTE | 2023-05-13 13:49 | PCM.WC.PN ---
History of Present Illness Date of Service: 05/13/23 Chief Complaint: venous ulcers of left lower extremity History of Wound: Mauricio is a 67 yo gentleman who is here today for evaluation of ulcers to to his bilateral lower legs. He has been treated multiple times in the past at the wound healing center for similar ulcers. The left LE ulcer started after he developed increased swelling and blisters of left leg in October and the right leg started sometime at the end of October. He was seen at PCP's office a culture was taken and it was resistant to several antibiotics. He was treated initially with Levaquin but had myalgias and then was treated with doxycycline which he finished 2 days ago. He denies improvement and is having swelling to his left calf and thigh. He has been having swelling to both lower extremities for many years and it has worsened over the last few months. He has not been compliant with compression. He has had increased pain especially in the left leg. He has clear yellow drainage and redness without odor or warmth. He is anti-coagulated on coumadin. He has been washing with Dial soap and witch ifrah. He had been using Collagen at times and using Calcium Alginate and covering with ABD pads during October. He was treated with 3M compression and Aquacel Ag. He was referred to the wound center for ongoing treatment. His ulcers have moderate to heavy drainage. He was recently hospitalized for cellulitis and edema for the last 10 days. He was in the hospital from 11/30/22 until 12/09/22 for treatment of cellulitis and edema. He underwent treatment with Vancomycin and IV lasix and compression. Discharged on 12/09/22 and is currently in the Skilled [facility] of [facility]. He returned to his assisted living apartment on Tuesday12/21/22. Subjective Subjective He is tolerating treatment with Dakins to ulcers. His left lower leg ulcers are not improved this week and edema is much worse. Culture did show increase of Pseudomonas growth and he wanted to hold off on IV antibiotic treatment and continue Dakins and repeat culture to see if it continues to increase in growth. He did use pumps this week. Denies fever, chills, increased pain or increased drainage. Objective Data Objective Data Vital Signs: Vital Signs Temp Pulse Resp BP 96.9 F L 60 18 104/64 05/13/23 10:23 05/13/23 10:05/13/23 10:23 05/13/23 10:23 Physical Exam Const alert, oriented x3 and no apparent distress General Appearance: cooperative and comfortable HEENT normocephalic and head/scalp atraumatic Lymph Lymphatic: lymphedema moderate Resp normal respiratory effort Effort and Inspection: able to speak in complete sentences Cardio regular rate and regular rhythm Extremity General Extremity: edema bilateral lower extremity Details: severe Skin Wounds: wounds noted Wound Narrative: as in clinical panel Psych mental status grossly normal, thought process normal, cooperative and affect normal Debridement Note Debridement Note Wound debrided: left medial LE cluster Laterality: Left Type of Debridement: Excisional debridement Anesthesia Used: 4% Lidocaine Solution and 5% Lidocaine Gel Depth: Down to and including healthy tissue and in the subcutaneous layer Percentage of wound debrided: 100 Instrument Used: 7mm curette Tissue Removed: Yellow slough, devitalized tissue Severity: Fat Layer Exposed Amount of bleeding with debridement: Mild Bleeding Controlled with: Compression and gauze Patient tolerated procedure: Patient tolerated procedure well Post-Debridement Measurements and Additional Note: Post-Debridement Measurements/Treatment - Nurse 1 - General Ulcer Assessment Start: 05/13/23 10:23 Freq: Status: Active Protocol: DEBBIE.LOWDIPIKAT Activity Type Activity Date Activity User E-sign Co-sign Detail Recorded Client Recorded Date Recorded By Document 05/13/23 10:23 [id number] 05/13/23 10:35 05/13/23 10:23 - Today's Visit Information Type of service 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 Any new allergies or adverse reactions No Had a fall/change in ADL's that may No increase risk of falls Signs or symptoms of abuse and/or No neglect since last visit Have you been in the hospital since your No last visit? Has dressing in place as prescribed Yes Has compression in place as prescribed Yes Has offloadiing in place as prescribed N/A Experienced any changes in pain level or No management Left Footwear Regular Shoe Right Footwear Regular Shoe Pain Scale: 0-10 Numeric Is Patient Pain Free? Yes - Nurse 1 - General Ulcer Measurement Start: 05/13/23 10:23 Freq: Status: Active Protocol: Activity Type Activity Date Activity User E-sign Co-sign Detail Recorded Client Recorded Date Recorded By Document 05/13/23 10:23 [id number] 05/13/23 10:35 05/13/23 10:23 Wound Center Nurse 1 #18 Left medial LE cluster -Combined with other wound No -Current Size (cm) - Length 6.4 -Current Size (cm) - Width 15.5 -Current Size (cm) - Depth 0.2 -Total Square Cm 99.20 -Photo Taken Yes -Epithelialization None Present -Tunneling No -Undermining/Tunneling No -Circular Undermining No -Exudate Amt Large -Exudate Type Serosanguineous -Wound Margin Flat & Intact -Granulation Amt Large (67-100%) -Granulation Quality Red -Slough/Fibrin Yes -Necrosis Amt Small (1-33%) -Necrotic Tissue Type Adherent Slough -Structure Exposed N/A -Texture (Marie-wound Skin Appearance) Assessed, Localized Edema -Moisture (Marie-wound Skin Appearance) Assessed,Dry/ Scaly -Color (Marie-wound Skin Appearance) Assessed, Hemosiderin Staining -Temperature (Marie-wound Skin No Abnormality Appearance) (Pt Warm) -Tenderness on Palpation (Marie-wound No Skin Appearance) -Ulcer Cleansing Wound Cleanser -Foul Odor after Cleansing No -Anesthetic Used 5% Lidocaine Gel Lower Limb Edema Present Yes Left Calf (cm) 46.3 Left Ankle (cm) 31.0 - Nurse 2 - General Ulcer CM Notes Start: 05/13/23 10:23 Freq: Status: Active Protocol: Activity Type Activity Date Activity User E-sign Co-sign Detail Recorded Client Recorded Date Recorded By Document 05/13/23 11:44 MW [id number] 05/13/23 11:58 MW 05/13/23 11:44 Wound Center Nurse 2 #18 Left medial LE cluster -Time 11:44 -Correct Patient Yes -Correct Side, Site, Position Yes -Correct Procedure Yes -Procedure Performed Yes -Type of Procedure Debridement -Clinical Debridement Subcutaneous -Tissue Removed Subcutaneous -Post Debridement (cm) - Length 6.6 -Post Debridement (cm) - Width 12.5 -Post Debridement (cm) - Depth 0.2 -Total Square (Post) (cm) 82.50 -Area of Debridement (cm) - Length 6.6 -Area of Debridement (cm) - Width 12.5 -Total Square (Area) (cm) 82.50 -Tunneling No -Undermining/Tunneling No -Circular Undermining No -Wound/Ulcer Outcome Not Healed -Ulcer Cleansing Rinsed/ Irrigated with Saline -Foul Odor after Cleansing No -Bioengineered Tissue No -Bleeding Controlled with Pressure -Treatment Response Procedure Tolerated Well -Debridement - Subq, 1st 20sq cm Yes -Debridement, SubQ, ea addt'l 20sq cm 4 or part thereof Pain Scale: 0-10 Numeric Is Patient Pain Free? Yes - Nurse 3 - General Ulcer D/C NN Start: 05/13/23 10:23 Freq: Status: Active Protocol: Activity Type Activity Date Activity User E-sign Co-sign Detail Recorded Client Recorded Date Recorded By Document 05/13/23 12:01 [id number] 05/13/23 12:03 05/13/23 12:01 Wound Care Center Nurse 3 #18 Left medial LE cluster -Ulcer Cleansing Rinsed/ Irrigated with Saline -Foul Odor after Cleansing No -Other Dressing dakin's 0.25% -Primary Dressing Covered/Secured with Dry Gauze & Roll Gauze, Secured with Tape -Other Covering ABD pad Right -Tubular Bandage Single Layer -Size of Tubigrip Used Size E -Size E ($) 1 Left -Tubular Bandage Single Layer -Size of Tubigrip Used Size E -Size E ($) 1 Pain Scale: 0-10 Numeric Is Patient Pain Free? Yes - Visit Discharge Discharge Condition Stable Ambulatory Status Ambulatory, Walker Transportation Private [place] [facility] Medication Reconcilliation completed & Yes provided to patient/care provider Clinical Summary of Care Provided Yes Assessment/Plan Assessment/Plan (1) Ulcer of left lower extremity with fat layer exposed: CODE(S): L97.922 - Non-pressure chronic ulcer of unspecified part of left lower leg with fat layer exposed (2) Venous insufficiency: CODE(S): I87.2 - Venous insufficiency (chronic) (peripheral) (3) Edema: CODE(S): R60.9 - Edema, unspecified QUALIFIERS: Edema type: unspecified Qualified Code(s): R60.9 - Edema, unspecified (4) History of CVA (cerebrovascular accident): CODE(S): Z86.73 - Personal history of transient ischemic attack (TIA), and cerebral infarction without residual deficits (5) 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 At home wound-care instructions: Continue Dakins, cover with ABD and wrap with gauze and use compression with tubigrips and continue lasix 3 tabs BID. If unable to tolerate Dakins, then would have him use Aquacel Ag and ABD and gauze and may need to do IV antibiotic treatment for Pseudomonas. Hold Epifix due to infection. Off-loading: The patient was instructed to avoid pressure and friction on the affected areas. Reposition every 2 hours at minimum. Avoid prolonged standing and/or dangling of legs. When seated, feet should be elevated at chest level. Frequent ambulation is encouraged. Encouraged lymphedema pump use. Diet: Patient encouraged to increase protein intake while taking caution to avoid high carbohydrate and/or sugar intake. Labs/cultures/imaging: Wound culture showed 1+ Pseudomonas that is resistant to oral antibiotics. Wound culture repeated today and if increased amount of Pseudomonas then will proceed with IV antibiotic treatment. Follow-up: Return in 2 weeks for wound care follow up and have secondary dressing changed by home health Tuesday and Tuesday. Return sooner or report to the emergency room should symptoms worsen, or new symptoms arise. Note: [employer] speech recognition senior animator software was used to create portions of this document. Sound-alike and misspelled words, as well as other senior animator errors may be contained in the documentation.
[2023-05-27 10:10] VITALS: BP 95/63; PULSE 69; RESP 20; TEMP 36.2
--- NOTE | 2023-05-27 14:06 | PCM.WC.PN ---
History of Present Illness Date of Service: 05/27/23 Chief Complaint: venous ulcers of left lower extremity History of Wound: Mauricio is a 67 yo gentleman who is here today for evaluation of ulcers to to his bilateral lower legs. He has been treated multiple times in the past at the wound healing center for similar ulcers. The left LE ulcer started after he developed increased swelling and blisters of left leg in October and the right leg started sometime at the end of October. He was seen at PCP's office a culture was taken and it was resistant to several antibiotics. He was treated initially with Levaquin but had myalgias and then was treated with doxycycline which he finished 2 days ago. He denies improvement and is having swelling to his left calf and thigh. He has been having swelling to both lower extremities for many years and it has worsened over the last few months. He has not been compliant with compression. He has had increased pain especially in the left leg. He has clear yellow drainage and redness without odor or warmth. He is anti-coagulated on coumadin. He has been washing with Dial soap and witch ifrah. He had been using Collagen at times and using Calcium Alginate and covering with ABD pads during October. He was treated with 3M compression and Aquacel Ag. He was referred to the wound center for ongoing treatment. His ulcers have moderate to heavy drainage. He was recently hospitalized for cellulitis and edema for the last 10 days. He was in the hospital from 11/30/22 until 12/09/22 for treatment of cellulitis and edema. He underwent treatment with Vancomycin and IV lasix and compression. Discharged on 12/09/22 and is currently in the Skilled [facility]. He returned to his assisted living apartment on Tuesday12/21/22. Subjective Subjective He is tolerating treatment with Dakins to ulcers. His left lower leg ulcers are not improved this week and edema is better. Culture showed decrease of Pseudomonas growth at last visit and he has continued to use Dakins. He did use pumps the past 2 weeks. Denies fever, chills, increased pain or increased drainage. Objective Data Objective Data Vital Signs: Vital Signs Temp Pulse Resp BP 97.1 F L 69 20 H 95/63 05/27/23 10:10 05/27/23 10:10 05/27/23 10:10 05/27/23 10:10 Lab / Micro Data Micro: Microbiology 05/13/23 11:45 Wound - Leg, Left Gram Stain - Final 05/13/23 11:45 Wound - Leg, Left Wound Culture - Final Pseudomonas aeruginosa 05/13/23 11:45 Wound - Leg, Left Anaerobic Culture - Final No growth in 5 days. Physical Exam Const alert, oriented x3 and no apparent distress General Appearance: cooperative and comfortable HEENT normocephalic and head/scalp atraumatic Lymph Lymphatic: lymphedema moderate Resp normal respiratory effort Effort and Inspection: able to speak in complete sentences Cardio regular rate and regular rhythm Extremity General Extremity: edema bilateral lower extremity Details: severe Skin Wounds: wounds noted Wound Narrative: as in clinical panel Psych mental status grossly normal, thought process normal, cooperative and affect normal Debridement Note Debridement Note Wound debrided: left medial LE cluster Laterality: Left Type of Debridement: Excisional debridement Anesthesia Used: 4% Lidocaine Solution and 5% Lidocaine Gel Depth: Down to and including healthy tissue and in the subcutaneous layer Percentage of wound debrided: 100 Instrument Used: 7mm curette Tissue Removed: Yellow slough, devitalized tissue Severity: Fat Layer Exposed Amount of bleeding with debridement: Mild Bleeding Controlled with: Compression and gauze Patient tolerated procedure: Patient tolerated procedure well Post-Debridement Measurements and Additional Note: Post-Debridement Measurements/Treatment - Nurse 1 - General Ulcer Assessment Start: 05/13/23 10:23 Freq: Status: Active Protocol: ONDINA Activity Type Activity Date Activity User E-sign Co-sign Detail Recorded Client Recorded Date Recorded By Document 05/13/23 10:23 [id number] 05/13/23 10:35 Document 05/27/23 10:10 ADITI [id number] 05/27/23 10:16 DL 05/13/23 05/27/23 10:23 10:10 - Today's Visit Information Type of service Follow-up Visit 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-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 ) ) Arrival Mode Ambulatory, Ambulatory Walker Transfer Assistance None Patient Identification Verified (Name & Yes Yes ) Patient Requires Transmission-Based No No Precautions Vital Signs Temperature (97.8 F-99.1 F) 96.9 F L 97.1 F L Temperature Source Temporal Temporal Pulse Rate (60-100) 60 69 Pulse Location Monitor Monitor Respiratory Rate (12-18) 18 20 H Respiratory rate source Observation Observation Blood Pressure (90/60-120/80) 104/64 95/63 Blood Pressure Mean (mm Hg) 77 73 Source Monitor Monitor Position Semi-Fowlers Blood Pressure Location Right Arm History Since Last Visit- (Skip if this is Patient's initial visit) Have you changed medications since your No No last visit? Any new allergies or adverse reactions No No Had a fall/change in ADL's that may No No increase risk of falls Signs or symptoms of abuse and/or No No neglect since last visit Have you been in the hospital since your No No last visit? Has dressing in place as prescribed Yes Yes Has compression in place as prescribed Yes Yes Has offloadiing in place as prescribed N/A N/A Experienced any changes in pain level or No No management Left Footwear Regular Shoe Right Footwear Regular Shoe Pain Scale: 0-10 Numeric Is Patient Pain Free? Yes Yes WC - Nurse 1 - General Ulcer Measurement Start: 05/13/23 10:23 Freq: Status: Active Protocol: Activity Type Activity Date Activity User E-sign Co-sign Detail Recorded Client Recorded Date Recorded By Document 05/13/23 10:23 [id number] 05/13/23 10:35 JF Document 05/27/23 10:10 DL [id number] 05/27/23 10:16 DL Edit Result 05/27/23 10:10 DL (1) [id number] 05/27/23 10:17 DL (1) Right Calf (cm) => 43.3 Right Ankle (cm) => 28.5 Left Calf (cm) => 44.5 Left Ankle (cm) => 31.6 05/13/23 05/27/23 10:23 10:10 Wound Center Nurse 1 #18 Left medial LE cluster -Combined with other wound No -Current Size (cm) - Length 6.4 7.7 -Current Size (cm) - Width 15.5 15.6 -Current Size (cm) - Depth 0.2 6.6 -Total Square Cm 99.20 120.12 -Photo Taken Yes -Epithelialization None Present -Tunneling No -Undermining/Tunneling No -Circular Undermining No -Exudate Amt Large Medium -Exudate Type Serosanguineous Serosanguineous -Wound Margin Flat & Intact -Granulation Amt Large (67-100%) Large (67-100%) -Granulation Quality Red Red -Slough/Fibrin Yes -Necrosis Amt Small (1-33%) Small (1-33%) -Necrotic Tissue Type Adherent Slough Adherent Slough -Structure Exposed N/A -Texture (Marie-wound Skin Appearance) Assessed, Assessed Localized Edema -Moisture (Marie-wound Skin Appearance) Assessed,Dry/ Assessed Scaly -Color (Marie-wound Skin Appearance) Assessed, Assessed Hemosiderin Staining -Temperature (Marie-wound Skin No Abnormality Appearance) (Pt Warm) -Tenderness on Palpation (Marie-wound No Skin Appearance) -Ulcer Cleansing Wound Cleanser Soap and Water -Foul Odor after Cleansing No -Anesthetic Used 5% Lidocaine 5% Lidocaine Gel Gel Lower Limb Edema Present Yes Right Calf (cm) 43.3 Right Ankle (cm) 28.5 Left Calf (cm) 46.3 44.5 Left Ankle (cm) 31.0 31.6 WC - Nurse 2 - General Ulcer CM Notes Start: 05/13/23 10:23 Freq: Status: Active Protocol: Activity Type Activity Date Activity User E-sign Co-sign Detail Recorded Client Recorded Date Recorded By Document 05/13/23 11:44 MW [id number] 05/13/23 11:58 MW Document 05/27/23 10:39 MW Desktop 05/27/23 10:58 MW 05/13/23 05/27/23 11:44 10:39 Wound Center Nurse 2 #18 Left medial LE cluster -Time 11:44 10:39 -Correct Patient Yes Yes -Correct Side, Site, Position Yes Yes -Correct Procedure Yes Yes -Procedure Performed Yes Yes -Type of Procedure Debridement Debridement -Clinical Debridement Subcutaneous Subcutaneous -Tissue Removed Subcutaneous Subcutaneous -Post Debridement (cm) - Length 6.6 6.8 -Post Debridement (cm) - Width 12.5 12.5 -Post Debridement (cm) - Depth 0.2 0.2 -Total Square (Post) (cm) 82.50 85.00 -Area of Debridement (cm) - Length 6.6 6.8 -Area of Debridement (cm) - Width 12.5 12.5 -Total Square (Area) (cm) 82.50 85.00 -Tunneling No No -Undermining/Tunneling No No -Circular Undermining No No -Wound/Ulcer Outcome Not Healed Not Healed -Ulcer Cleansing Rinsed/ Rinsed/ Irrigated with Irrigated with Saline Saline -Foul Odor after Cleansing No No -Bioengineered Tissue No Yes -Type of Bioengineered Tissue Epifix Mesh -Expiration Date 02/08/28 -Product Lot Number [id number] -Percent Used 100 -Lot number of Saline Used [id number] -Bleeding Controlled with Pressure Pressure -Treatment Response Procedure Procedure Tolerated Well Tolerated Well -Debridement - Subq, 1st 20sq cm Yes No -Debridement, SubQ, ea addt'l 20sq cm 4 or part thereof -Apply Skin Sub - 1st 25 sq cm - Legs 1 -Epifix Mesh (per sq cm) 11 Pain Scale: 0-10 Numeric Is Patient Pain Free? Yes Yes - Nurse 3 - General Ulcer D/C NN Start: 05/13/23 10:23 Freq: Status: Active Protocol: Activity Type Activity Date Activity User E-sign Co-sign Detail Recorded Client Recorded Date Recorded By Document 05/13/23 12:01 [id number] 05/13/23 12:03 Document 05/27/23 11:10 RB [id number] 05/27/23 11:11 RB 05/13/23 05/27/23 12:01 11:10 Wound Care Center Nurse 3 #18 Left medial LE cluster -Ulcer Cleansing Rinsed/ Irrigated with Saline -Foul Odor after Cleansing No -Primary Dressing Applied Aquacel Extra -Other Dressing dakin's 0.25% abd -Primary Dressing Covered/Secured with Dry Gauze & Dry Gauze & Roll Gauze, Roll Gauze, Secured with Secured with Tape Tape -Other Covering ABD pad -Aquacel Extra 1 Right -Tubular Bandage Single Layer Single Layer -Size of Tubigrip Used Size E Size E -Size E ($) 1 1 Left -Tubular Bandage Single Layer Single Layer -Size of Tubigrip Used Size E Size E -Size E ($) 1 1 Treatment Response Procedure Tolerated Well Pain Scale: 0-10 Numeric Is Patient Pain Free? Yes Yes - Visit Discharge Discharge Condition Stable Stable Ambulatory Status Ambulatory, Ambulatory, Walker Walker Transportation Private Auto Private Auto [facility] by [facility] Medication Reconcilliation completed & Yes No provided to patient/care provider Clinical Summary of Care Provided Yes Yes Assessment/Plan Assessment/Plan (1) Ulcer of left lower extremity with fat layer exposed: CODE(S): L97.922 - Non-pressure chronic ulcer of unspecified part of left lower leg with fat layer exposed (2) Venous insufficiency: CODE(S): I87.2 - Venous insufficiency (chronic) (peripheral) (3) Edema: CODE(S): R60.9 - Edema, unspecified QUALIFIERS: Edema type: unspecified Qualified Code(s): R60.9 - Edema, unspecified (4) History of CVA (cerebrovascular accident): CODE(S): Z86.73 - Personal history of transient ischemic attack (TIA), and cerebral infarction without residual deficits (5) 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 At home wound-care instructions: Epifix #8 applied today per patient information coordinator guidelines and covered with wound veil and secured with steri-strips. Will cover with ABD and KATE bandage changed Tuesday and Tuesday or daily if needed for excessive drainage. Epifix was held for the last 4 weeks due to worsening edema and infection. His ulcer is clinically clear of infection and edema is better controlled today which prompted the decision to restart Epifix application. Off-loading: The patient was instructed to avoid pressure and friction on the affected areas. Reposition every 2 hours at minimum. Avoid prolonged standing and/or dangling of legs. When seated, feet should be elevated at chest level. Frequent ambulation is encouraged. Encouraged lymphedema pump use. Diet: Patient encouraged to increase protein intake while taking caution to avoid high carbohydrate and/or sugar intake. Labs/cultures/imaging: Wound culture showed 1+ Pseudomonas that is resistant to oral antibiotics. Wound culture showed rare growth on 05/13/23. Follow-up: Return in 1 week for wound care follow up and have secondary dressing changed by home health Tuesday and Tuesday. Return sooner or report to the emergency room should symptoms worsen, or new symptoms arise. Note: [employer] speech recognition senior nurse manager software was used to create portions of this document. Sound-alike and misspelled words, as well as other senior nurse manager errors may be contained in the documentation.
[2023-06-03 10:05] VITALS: BP 96/54; PULSE 66; RESP 18; TEMP 36.2
--- NOTE | 2023-06-03 14:43 | PN.PCM_ITS ---
History of Present Illness Date of Service: 06/03/23 Chief Complaint: venous ulcers of left lower extremity History of Wound: Mauricio is a 67 yo gentleman who is here today for evaluation of ulcers to to his bilateral lower legs. He has been treated multiple times in the past at the wound healing center for similar ulcers. The left LE ulcer started after he developed increased swelling and blisters of left leg in October and the right leg started sometime at the end of October. He was seen at PCP's office a culture was taken and it was resistant to several antibiotics. He was treated initially with Levaquin but had myalgias and then was treated with doxycycline which he finished 2 days ago. He denies improvement and is having swelling to his left calf and thigh. He has been having swelling to both lower extremities for many years and it has worsened over the last few months. He has not been compliant with compression. He has had increased pain especially in the left leg. He has clear yellow drainage and redness without odor or warmth. He is anti- coagulated on coumadin. He has been washing with Dial soap and witch ifrah. He had been using Collagen at times and using Calcium Alginate and covering with ABD pads during October. He was treated with 3M compression and Aquacel Ag. He was referred to the wound center for ongoing treatment. His ulcers have moderate to heavy drainage. He was recently hospitalized for cellulitis and edema for the last 10 days. He was in the hospital from 11/30/22 until 12/09/22 for treatment of cellulitis and edema. He underwent treatment with Vancomycin and IV lasix and compression. Discharged on 12/09/22 and is currently in the Skilled [facility] of [facility]. He returned to his assisted living apartment on Tuesday12/21/22. Subjective Subjective He tolerated Epifix #8 application with mild improvement. Edema is better. He did use pumps the past 2 weeks. Denies fever, chills, increased pain or increased drainage. Objective Data Objective Data Vital Signs: Vital Signs Temp Pulse Resp BP O2 Del Method 97.2 F L 66 18 96/54 L Room Air 06/03/23 10:05 06/03/23 10:05 06/03/23 10:05 06/03/23 10:05 06/03/23 10:05 Oxygen Delivery Method Room Air Lab / Micro Data Micro: Microbiology 05/13/23 11:45 Wound - Leg, Left Gram Stain - Final 05/13/23 11:45 Wound - Leg, Left Wound Culture - Final Pseudomonas aeruginosa 05/13/23 11:45 Wound - Leg, Left Anaerobic Culture - Final No growth in 5 days. Physical Exam Const alert, oriented x3 and no apparent distress General Appearance: cooperative and comfortable HEENT normocephalic and head/scalp atraumatic Lymph Lymphatic: lymphedema moderate Resp normal respiratory effort Effort and Inspection: able to speak in complete sentences Cardio regular rate and regular rhythm Extremity General Extremity: edema bilateral lower extremity Details: severe Skin Wounds: wounds noted Wound Narrative: as in clinical panel Psych mental status grossly normal, thought process normal, cooperative and affect normal Debridement Note Debridement Note Wound debrided: left medial LE cluster Laterality: Left Type of Debridement: Excisional debridement Anesthesia Used: 4% Lidocaine Solution and 5% Lidocaine Gel Depth: Down to and including healthy tissue and in the subcutaneous layer Percentage of wound debrided: 100 Instrument Used: 7mm curette Tissue Removed: Yellow slough, devitalized tissue Severity: Fat Layer Exposed Amount of bleeding with debridement: Mild Bleeding Controlled with: Compression and gauze Patient tolerated procedure: Patient tolerated procedure well Post-Debridement Measurements and Additional Note: Post-Debridement Measurements/Treatment - Nurse 1 - General Ulcer Assessment Start: 05/13/23 10:23 Freq: Status: Active Protocol: ONDINA Activity Type Activity Date Activity User E-sign Co-sign Detail Recorded Client Recorded Date Recorded By Document 05/13/23 10:23 [id number] 05/13/23 10:35 Document 05/27/23 10:10 DL [id number] 05/27/23 10:16 DL Document 06/03/23 10:05 KW [id number] 06/03/23 10:23 KW 05/13/23 05/27/23 06/03/23 10:23 10:10 10:05 - Today's Visit Information Type of service Follow-up Visit Follow-up Visit Follow-up Visit (Physician/PV DESIGN AND INSTALLATION TECHNICIAN (Physician/PV DESIGN AND INSTALLATION TECHNICIAN (Physician/PV DESIGN AND INSTALLATION TECHNICIAN ) ) ) Arrival Mode Ambulatory, Ambulatory Ambulatory, Walker Walker Transfer Assistance None Patient Identification Verified (Name & Yes Yes Yes ) Patient Requires Transmission-Based No No Precautions Vital Signs Temperature (97.8 F-99.1 F) 96.9 F L 97.1 F L 97.2 F L Temperature Source Temporal Temporal Temporal Pulse Rate (60-100) 60 69 66 Pulse Location Monitor Monitor Monitor Respiratory Rate (12-18) 18 20 H 18 Respiratory rate source Observation Observation Observation Oxygen Delivery Method Room Air Blood Pressure (90/60-120/80) 104/64 95/63 96/54 L Blood Pressure Mean (mm Hg) 77 73 68 Source Monitor Monitor Monitor Position Semi-Fowlers Semi-Fowlers Blood Pressure Location Right Arm Right Arm History Since Last Visit- (Skip if this is Patient's initial visit) Have you changed medications since your No No No last visit? Any new allergies or adverse reactions No No No Had a fall/change in ADL's that may No No No increase risk of falls Signs or symptoms of abuse and/or No No No neglect since last visit Have you been in the hospital since your No No No last visit? Has dressing in place as prescribed Yes Yes Yes Has compression in place as prescribed Yes Yes Yes Has offloadiing in place as prescribed N/A N/A No Experienced any changes in pain level or No No No management Left Footwear Regular Shoe Regular Shoe Right Footwear Regular Shoe Regular Shoe Pain Scale: 0-10 Numeric Is Patient Pain Free? Yes Yes No LLE -Description Burning,Aching -Intensity 8 -Radiation Location up leg towards arms and left side -Pain Behavior No Change in Behavior -Alleviating Factors/Interventions Medication WC - Nurse 1 - General Ulcer Measurement Start: 05/13/23 10:23 Freq: Status: Active Protocol: Activity Type Activity Date Activity User E-sign Co-sign Detail Recorded Client Recorded Date Recorded By Document 05/13/23 10:23 [id number] 05/13/23 10:35 JF Document 05/27/23 10:10 DL [id number] 05/27/23 10:16 DL Edit Result 05/27/23 10:10 DL (1) [id number] 05/27/23 10:17 DL Document 06/03/23 10:05 KW [id number] 06/03/23 10:23 KW (1) Right Calf (cm) => 43.3 Right Ankle (cm) => 28.5 Left Calf (cm) => 44.5 Left Ankle (cm) => 31.6 05/13/23 05/27/23 06/03/23 10:23 10:10 10:05 Wound Center Nurse 1 #18 Left medial LE cluster -Combined with other wound No -Current Size (cm) - Length 6.4 7.7 7.3 -Current Size (cm) - Width 15.5 15.6 12.5 -Current Size (cm) - Depth 0.2 6.6 0.2 -Total Square Cm 99.20 120.12 91.25 -Date of Last Picture (Recall this 06/03/23 field) -Photo Taken Yes Yes -Epithelialization None Present -Tunneling No -Undermining/Tunneling No -Circular Undermining No -Exudate Amt Large Medium -Exudate Type Serosanguineous Serosanguineous Yellow/Green -Wound Margin Flat & Intact Distinct, Outline Attached -Granulation Amt Large (67-100%) Large (67-100%) Medium (34-66%) -Granulation Quality Red Red [place] -Slough/Fibrin Yes -Necrosis Amt Small (1-33%) Small (1-33%) Small (1-33%) -Necrotic Tissue Type Adherent Slough Adherent Slough Adherent Slough -Structure Exposed N/A -Texture (Marie-wound Skin Appearance) Assessed, Assessed Assessed Localized Edema -Moisture (Marie-wound Skin Appearance) Assessed,Dry/ Assessed Assessed Scaly -Color (Marie-wound Skin Appearance) Assessed, Assessed Assessed Hemosiderin Staining -Temperature (Marie-wound Skin No Abnormality No Abnormality Appearance) (Pt Warm) (Pt Warm) -Tenderness on Palpation (Marie-wound No Skin Appearance) -Ulcer Cleansing Wound Cleanser Soap and Water Soap and Water -Foul Odor after Cleansing No No -Anesthetic Used 5% Lidocaine 5% Lidocaine 5% Lidocaine Gel Gel Gel Lower Limb Edema Present Yes Right Calf (cm) 43.3 Right Ankle (cm) 28.5 Left Calf (cm) 46.3 44.5 43.4 Left Ankle (cm) 31.0 31.6 33.4 WC - Nurse 2 - General Ulcer CM Notes Start: 05/13/23 10:23 Freq: Status: Active Protocol: Activity Type Activity Date Activity User E-sign Co-sign Detail Recorded Client Recorded Date Recorded By Document 05/13/23 11:44 MW [id number] 05/13/23 11:58 MW Document 05/27/23 10:39 MW Desktop 05/27/23 10:58 MW Document 06/03/23 11:35 MW [id number] 06/03/23 11:58 MW 05/13/23 05/27/23 06/03/23 11:44 10:39 11:35 Wound Center Nurse 2 #18 Left medial LE cluster -Time 11:44 10:39 11:36 -Correct Patient Yes Yes Yes -Correct Side, Site, Position Yes Yes Yes -Correct Procedure Yes Yes Yes -Procedure Performed Yes Yes Yes -Type of Procedure Debridement Debridement Debridement -Clinical Debridement Subcutaneous Subcutaneous Subcutaneous -Tissue Removed Subcutaneous Subcutaneous Subcutaneous -Post Debridement (cm) - Length 6.6 6.8 7.0 -Post Debridement (cm) - Width 12.5 12.5 13.0 -Post Debridement (cm) - Depth 0.2 0.2 0.2 -Total Square (Post) (cm) 82.50 85.00 91.00 -Area of Debridement (cm) - Length 6.6 6.8 7.0 -Area of Debridement (cm) - Width 12.5 12.5 13.0 -Total Square (Area) (cm) 82.50 85.00 91.00 -Tunneling No No No -Undermining/Tunneling No No No -Circular Undermining No No No -Wound/Ulcer Outcome Not Healed Not Healed Not Healed -Ulcer Cleansing Rinsed/ Rinsed/ Rinsed/ Irrigated with Irrigated with Irrigated with Saline Saline Saline -Foul Odor after Cleansing No No No -Bioengineered Tissue No Yes Yes -Type of Bioengineered Tissue Epifix Mesh Epifix Mesh -Expiration Date 02/08/28 02/08/28 -Product Lot Number [id number] -Percent Used 100 100 -Lot number of Saline Used [id number] -Bleeding Controlled with Pressure Pressure Pressure -Treatment Response Procedure Procedure Tolerated Well Tolerated Well -Offloading No -Debridement - Subq, 1st 20sq cm Yes No No -Debridement, SubQ, ea addt'l 20sq cm 4 or part thereof -Apply Skin Sub - 1st 25 sq cm - Legs 1 1 -Epifix Mesh (per sq cm) 11 11 Pain Scale: 0-10 Numeric Is Patient Pain Free? Yes Yes Yes - Nurse 3 - General Ulcer D/C NN Start: 05/13/23 10:23 Freq: Status: Active Protocol: Activity Type Activity Date Activity User E-sign Co-sign Detail Recorded Client Recorded Date Recorded By Document 05/13/23 12:01 JF [id number] 05/13/23 12:03 JF Document 05/27/23 11:10 RB [id number] 05/27/23 11:11 RB Document 06/03/23 12:13 RB [id number] 06/03/23 12:15 RB 05/13/23 05/27/23 06/03/23 12:01 11:10 12:13 Wound Care Center Nurse 3 #18 Left medial LE cluster -Ulcer Cleansing Rinsed/ Irrigated with Saline -Foul Odor after Cleansing No -Primary Dressing Applied Aquacel Extra Aquacel Extra -Other Dressing dakin's 0.25% abd abd -Primary Dressing Covered/Secured with Dry Gauze & Dry Gauze & Dry Gauze & Roll Gauze, Roll Gauze, Roll Gauze, Secured with Secured with Secured with Tape Tape Tape -Other Covering ABD pad -Aquacel Extra 1 1 Right -Tubular Bandage Single Layer Single Layer Single Layer -Size of Tubigrip Used Size E Size E Size E -Size E ($) 1 1 1 Left -Tubular Bandage Single Layer Single Layer Single Layer -Size of Tubigrip Used Size E Size E Size E -Size E ($) 1 1 1 Treatment Response Procedure Procedure Tolerated Well Tolerated Well Pain Scale: 0-10 Numeric Is Patient Pain Free? Yes Yes Yes - Visit Discharge Discharge Condition Stable Stable Stable Ambulatory Status Ambulatory, Ambulatory, Ambulatory, Walker Walker Walker Transportation Private Auto Private Auto Private Auto Accompanied by [facility] Medication Reconcilliation completed & Yes No No provided to patient/care provider Clinical Summary of Care Provided Yes Yes Yes Assessment/Plan Assessment/Plan (1) Ulcer of left lower extremity with fat layer exposed: CODE(S): L97.922 - Non-pressure chronic ulcer of unspecified part of left lower leg with fat layer exposed (2) Venous insufficiency: CODE(S): I87.2 - Venous insufficiency (chronic) (peripheral) (3) Edema: CODE(S): R60.9 - Edema, unspecified QUALIFIERS: Edema type: unspecified Qualified Code(s): R60.9 - Edema, unspecified (4) History of CVA (cerebrovascular accident): CODE(S): Z86.73 - Personal history of transient ischemic attack (TIA), and cerebral infarction without residual deficits (5) 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 At home wound-care instructions: Epifix #9 applied today per product support sales representative guidelines and covered with wound veil and secured with steri-strips. Will cover with ABD and KATE bandage changed Tuesday and Tuesday or daily if needed for excessive drainage. Epifix was held for the last 4 weeks due to worsening edema and infection. His ulcer is clinically clear of infection and edema is better controlled today which prompted the decision to restart Epifix application. Off-loading: The patient was instructed to avoid pressure and friction on the affected areas. Reposition every 2 hours at minimum. Avoid prolonged standing and/or dangling of legs. When seated, feet should be elevated at chest level. Frequent ambulation is encouraged. Encouraged lymphedema pump use. Diet: Patient encouraged to increase protein intake while taking caution to avoid high carbohydrate and/or sugar intake. Labs/cultures/imaging: Wound culture showed 1+ Pseudomonas that is resistant to oral antibiotics. Wound culture showed rare growth on 05/13/23. Follow-up: Return in 1 week for wound care follow up and have secondary dressing changed by home health Tuesday and Tuesday. Return sooner or report to the emergency room should symptoms worsen, or new symptoms arise. Note: [email or web address] speech recognition banner painter software was used to create portions of this document. Sound-alike and misspelled words, as well as other banner painter errors may be contained in the documentation.
== END 2023-06-09 23:59 | disposition home or self-care (01) ==
LOC: WC 10:00
PROVIDERS: PCP Family Medicine; Referring Provider Family Medicine; Visit Provider Family Medicine
DX: L97.922 Non-pressure chronic ulcer of unspecified part of left lower leg with fat layer exposed (principal); I83.029 Varicose veins of left lower extremity with ulcer of unspecified site; B96.5 Pseudomonas (aeruginosa) (mallei) (pseudomallei) as the cause of diseases classified elsewhere; M79.605 Pain in left leg; M79.10 Myalgia, unspecified site; I87.2 Venous insufficiency (chronic) (peripheral); R60.9 Edema, unspecified; Z86.73 Personal history of transient ischemic attack (TIA), and cerebral infarction without residual deficits; I89.0 Lymphedema, not elsewhere classified
CPT/HCPCS: 11042; 11045; 15271; 87070; 87075; 87077; 87186; 87205; Q4186

== ENCOUNTER 2023-07-08 10:00 | Outpatient (RCR) | payer MEDICARE, OTHER, SELFPAY ==
[2023-06-10 00:35] VITALS: BP 96/54; PULSE 66; RESP 18; TEMP 36.2
[2023-06-10 10:13] VITALS: BP 114/63; PULSE 69; RESP 20; TEMP 36.7
--- NOTE | 2023-06-10 13:25 | PCM.WC.PN ---
History of Present Illness Date of Service: 06/10/23 Chief Complaint: venous ulcers of left lower extremity History of Wound: Mauricio is a 67 yo gentleman who is here today for evaluation of ulcers to to his bilateral lower legs. He has been treated multiple times in the past at the wound healing center for similar ulcers. The left LE ulcer started after he developed increased swelling and blisters of left leg in October and the right leg started sometime at the end of October. He was seen at PCP's office a culture was taken and it was resistant to several antibiotics. He was treated initially with Levaquin but had myalgias and then was treated with doxycycline which he finished 2 days ago. He denies improvement and is having swelling to his left calf and thigh. He has been having swelling to both lower extremities for many years and it has worsened over the last few months. He has not been compliant with compression. He has had increased pain especially in the left leg. He has clear yellow drainage and redness without odor or warmth. He is anti-coagulated on coumadin. He has been washing with Dial soap and witch ifrah. He had been using Collagen at times and using Calcium Alginate and covering with ABD pads during October. He was treated with 3M compression and Aquacel Ag. He was referred to the wound center for ongoing treatment. His ulcers have moderate to heavy drainage. He was recently hospitalized for cellulitis and edema for the last 10 days. He was in the hospital from 11/30/22 until 12/09/22 for treatment of cellulitis and edema. He underwent treatment with Vancomycin and IV lasix and compression. Discharged on 12/09/22 and is currently in the Skilled section of [facility]. He returned to his assisted living apartment on Tuesday12/21/22. Subjective Subjective He tolerated Epifix #9 application with mild improvement. Edema is better. He did use pumps the past 2 weeks. Denies fever, chills, increased pain or increased drainage. Objective Data Objective Data Vital Signs: Vital Signs Temp Pulse Resp BP 98.1 F 69 20 H 114/63 06/10/23 10:13 06/10/23 10:13 06/10/23 10:13 06/10/23 10:13 Physical Exam Const alert, oriented x3 and no apparent distress General Appearance: cooperative and comfortable HEENT normocephalic and head/scalp atraumatic Lymph Lymphatic: lymphedema moderate Resp normal respiratory effort Effort and Inspection: able to speak in complete sentences Cardio regular rate and regular rhythm Extremity General Extremity: edema bilateral lower extremity Details: severe Skin Wounds: wounds noted Wound Narrative: as in clinical panel Psych mental status grossly normal, thought process normal, cooperative and affect normal Debridement Note Debridement Note Wound debrided: left medial LE cluster Laterality: Left Type of Debridement: Excisional debridement Anesthesia Used: 4% Lidocaine Solution and 5% Lidocaine Gel Depth: Down to and including healthy tissue and in the subcutaneous layer Percentage of wound debrided: 100 Instrument Used: - (misonix ultrasonic debridement) Tissue Removed: Yellow slough, devitalized tissue Severity: Fat Layer Exposed Amount of bleeding with debridement: Mild Bleeding Controlled with: Compression and gauze Patient tolerated procedure: Patient tolerated procedure well Post-Debridement Measurements and Additional Note: Post-Debridement Measurements/Treatment WC - Nurse 1 - General Ulcer Assessment Start: 06/10/23 10:13 Freq: Status: Active Protocol: ONDINA Activity Type Activity Date Activity User E-sign Co-sign Detail Recorded Client Recorded Date Recorded By Document 06/10/23 10:13 DL [id number] 06/10/23 10:24 DL 06/10/23 10:13 WC - Today's Visit Information Type of service 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 Any new allergies or adverse reactions No Had a fall/change in ADL's that may No increase risk of falls Signs or symptoms of abuse and/or No neglect since last visit Have you been in the hospital since your No last visit? Has dressing in place as prescribed Yes Has compression in place as prescribed Yes Has offloadiing in place as prescribed N/A Experienced any changes in pain level or No management Pain Scale: 0-10 Numeric Is Patient Pain Free? Yes - Nurse 1 - General Ulcer Measurement Start: 06/10/23 10:13 Freq: Status: Active Protocol: Activity Type Activity Date Activity User E-sign Co-sign Detail Recorded Client Recorded Date Recorded By Document 06/10/23 10:13 DL [id number] 06/10/23 10:24 DL 06/10/23 10:13 Wound Center Nurse 1 #18 Left medial LE cluster -Current Size (cm) - Length 10.4 -Current Size (cm) - Width 17 -Current Size (cm) - Depth 0.3 -Total Square Cm 176.8 -Photo Taken Yes -Exudate Amt Large -Exudate Type Serosanguineous -Wound Margin Distinct, Outline Attached -Granulation Amt Medium (34-66%) -Granulation Quality Red -Necrosis Amt Medium (34-66%) -Necrotic Tissue Type Adherent Slough -Structure Exposed N/A -Texture (Marie-wound Skin Appearance) Scarring -Moisture (Marie-wound Skin Appearance) Maceration -Color (Marie-wound Skin Appearance) Hemosiderin Staining -Temperature (Marie-wound Skin No Abnormality Appearance) (Pt Warm) -Tenderness on Palpation (Marie-wound No Skin Appearance) -Ulcer Cleansing Soap and Water -Foul Odor after Cleansing No -Anesthetic Used 4% Lidocaine Solution Left Calf (cm) 40 Left Ankle (cm) 29.4 - Nurse 2 - General Ulcer CM Notes Start: 06/10/23 10:13 Freq: Status: Active Protocol: Activity Type Activity Date Activity User E-sign Co-sign Detail Recorded Client Recorded Date Recorded By Document 06/10/23 13:14 TAMIA [id number] 06/10/23 13:18 PL 06/10/23 13:14 Wound Center Nurse 2 #18 Left medial LE cluster -Time 10:32 -Correct Patient Yes -Correct Side, Site, Position Yes -Correct Procedure Yes -Procedure Performed Yes -Type of Procedure Debridement -Clinical Debridement Subcutaneous -Tissue Removed Subcutaneous -Post Debridement (cm) - Length 7.0 -Post Debridement (cm) - Width 13.0 -Post Debridement (cm) - Depth 0.2 -Total Square (Post) (cm) 91.00 -Area of Debridement (cm) - Length 7.0 -Area of Debridement (cm) - Width 13.0 -Total Square (Area) (cm) 91.00 -Tunneling No -Undermining/Tunneling No -Circular Undermining No -Wound/Ulcer Outcome Not Healed -Ulcer Cleansing Rinsed/ Irrigated with Saline -Foul Odor after Cleansing No -Bioengineered Tissue Yes -Type of Bioengineered Tissue Epifix Mesh -Expiration Date 02/08/28 -Product Lot Number [id number] -Percent Used 100 -Bleeding Controlled with Pressure -Treatment Response Procedure Tolerated Well -Debridement - Subq, 1st 20sq cm No -Apply Skin Sub - 1st 25 sq cm - Legs 1 -Apply Skin Sub - each addt'l 25 sq cm 3 - Legs -Epifix Mesh (per sq cm) 11 Pain Scale: 0-10 Numeric Is Patient Pain Free? Yes - Nurse 3 - General Ulcer D/C NN Start: 06/10/23 10:13 Freq: Status: Active Protocol: Activity Type Activity Date Activity User E-sign Co-sign Detail Recorded Client Recorded Date Recorded By Document 06/10/23 11:00 RB [id number] 06/10/23 11:01 RB Edit Result 06/10/23 11:00 RB (1) [id number] 06/10/23 11:03 RB (1) #18 Left medial LE cluster - Optilok 6.5x10 2 => 1 06/10/23 11:00 Wound Care Center Nurse 3 #18 Left medial LE cluster -Ulcer Cleansing Rinsed/ Irrigated with Saline -Primary Dressing Applied Aquacel Extra, Optilok 6.5x10 -Primary Dressing Covered/Secured with Dry Gauze & Roll Gauze, Secured with Tape -Aquacel Extra 1 -Optilok 6.5x10 1 Right -Tubular Bandage Single Layer -Size of Tubigrip Used Size E -Size E ($) 1 Left -Tubular Bandage Single Layer -Size of Tubigrip Used Size E -Size E ($) 1 Treatment Response Procedure Tolerated Well Pain Scale: 0-10 Numeric Is Patient Pain Free? Yes WC - Visit Discharge Discharge Condition Stable Ambulatory Status Ambulatory, Walker Transportation Private Auto Medication Reconcilliation completed & No provided to patient/care provider Clinical Summary of Care Provided Yes Assessment/Plan Assessment/Plan (1) Ulcer of left lower extremity with fat layer exposed: CODE(S): L97.922 - Non-pressure chronic ulcer of unspecified part of left lower leg with fat layer exposed (2) Venous insufficiency: CODE(S): I87.2 - Venous insufficiency (chronic) (peripheral) (3) Edema: CODE(S): R60.9 - Edema, unspecified QUALIFIERS: Edema type: unspecified Qualified Code(s): R60.9 - Edema, unspecified (4) History of CVA (cerebrovascular accident): CODE(S): Z86.73 - Personal history of transient ischemic attack (TIA), and cerebral infarction without residual deficits (5) 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 At home wound-care instructions: Epifix #10 applied today per painter and paperhanger apprentice guidelines and covered with wound veil and secured with steri-strips. Will cover with super absorber and KATE bandage changed Tuesday and Tuesday or daily if needed for excessive drainage. Epifix was held for the last 4 weeks due to worsening edema and infection. His ulcer is clinically clear of infection and edema is better controlled today which prompted the decision to restart Epifix application. Off-loading: The patient was instructed to avoid pressure and friction on the affected areas. Reposition every 2 hours at minimum. Avoid prolonged standing and/or dangling of legs. When seated, feet should be elevated at chest level. Frequent ambulation is encouraged. Encouraged lymphedema pump use. Diet: Patient encouraged to increase protein intake while taking caution to avoid high carbohydrate and/or sugar intake. Labs/cultures/imaging: Wound culture showed 1+ Pseudomonas that is resistant to oral antibiotics. Wound culture showed rare growth on 05/13/23. Follow-up: Return in 1 week for wound care follow up and have secondary dressing changed by home health Tuesday and Tuesday. Return sooner or report to the emergency room should symptoms worsen, or new symptoms arise. Note: [employer] speech recognition pilot control operator helper software was used to create portions of this document. Sound-alike and misspelled words, as well as other pilot control operator helper errors may be contained in the documentation.
[2023-06-17 10:12] VITALS: BP 116/76; PULSE 68; RESP 18; TEMP 35.5
--- NOTE | 2023-06-17 11:01 | PN.PCM_ITS ---
History of Present Illness Date of Service: 06/17/23 Chief Complaint: venous ulcers of left lower extremity History of Wound: Mauricio is a 67 yo gentleman who is here today for evaluation of ulcers to to his bilateral lower legs. He has been treated multiple times in the past at the wound healing center for similar ulcers. The left LE ulcer started after he developed increased swelling and blisters of left leg in October and the right leg started sometime at the end of October. He was seen at PCP's office a culture was taken and it was resistant to several antibiotics. He was treated initially with Levaquin but had myalgias and then was treated with doxycycline which he finished 2 days ago. He denies improvement and is having swelling to his left calf and thigh. He has been having swelling to both lower extremities for many years and it has worsened over the last few months. He has not been compliant with compression. He has had increased pain especially in the left leg. He has clear yellow drainage and redness without odor or warmth. He is anti- coagulated on coumadin. He has been washing with Dial soap and witch ifrah. He had been using Collagen at times and using Calcium Alginate and covering with ABD pads during October. He was treated with 3M compression and Aquacel Ag. He was referred to the wound center for ongoing treatment. His ulcers have moderate to heavy drainage. He was recently hospitalized for cellulitis and edema for the last 10 days. He was in the hospital from 11/30/22 until 12/09/22 for treatment of cellulitis and edema. He underwent treatment with Vancomycin and IV lasix and compression. Discharged on 12/09/22 and is currently in the Skilled section of [facility]. He returned to his assisted living apartment on Tuesday12/21/22. Subjective Subjective He tolerated Epifix #10 application with mild improvement. Edema remains better. He did use pumps the past 2 weeks. Denies fever, chills, increased pain or increased drainage. Objective Data Objective Data Vital Signs: Vital Signs Temp Pulse Resp BP 96 F L 68 18 116/76 06/17/23 10:12 06/17/23 10:12 06/17/23 10:12 06/17/23 10:12 Physical Exam Const alert, oriented x3 and no apparent distress General Appearance: cooperative and comfortable HEENT normocephalic and head/scalp atraumatic Lymph Lymphatic: lymphedema moderate Resp normal respiratory effort Effort and Inspection: able to speak in complete sentences Cardio regular rate and regular rhythm Extremity General Extremity: edema bilateral lower extremity Details: severe Skin Wounds: wounds noted Wound Narrative: as in clinical panel Psych mental status grossly normal, thought process normal, cooperative and affect normal Debridement Note Debridement Note Wound debrided: left medial LE cluster Laterality: Left Type of Debridement: Excisional debridement Anesthesia Used: 4% Lidocaine Solution and 5% Lidocaine Gel Depth: Down to and including healthy tissue and in the subcutaneous layer Percentage of wound debrided: 100 Instrument Used: - (misonix ultrasonic debridement) Tissue Removed: Yellow slough, devitalized tissue Severity: Fat Layer Exposed Amount of bleeding with debridement: Mild Bleeding Controlled with: Compression and gauze Patient tolerated procedure: Patient tolerated procedure well Post-Debridement Measurements and Additional Note: Post-Debridement Measurements/Treatment - Nurse 1 - General Ulcer Assessment Start: 06/10/23 10:13 Freq: Status: Active Protocol: ONDINA Activity Type Activity Date Activity User E-sign Co-sign Detail Recorded Client Recorded Date Recorded By Document 06/10/23 10:13 DL [id number] 06/10/23 10:24 DL Document 06/17/23 10:12 RB [id number] 06/17/23 10:14 RB 06/10/23 06/17/23 10:13 10:12 - Today's Visit Information Type of service Follow-up Visit Follow-up 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 (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/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 PROFESSOR OF 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 ) ) Arrival Mode Ambulatory, Ambulatory Walker Transfer Assistance None None Patient Identification Verified (Name & Yes Yes ) Patient Requires Transmission-Based No No Precautions Vital Signs Temperature (97.8 F-99.1 F) 98.1 F 96 F L Temperature Source Temporal Temporal Pulse Rate (60-100) 69 68 Pulse Location Monitor Monitor Respiratory Rate (12-18) 20 H 18 Respiratory rate source Observation Observation Blood Pressure (90/60-120/80) 114/63 116/76 Blood Pressure Mean (mm Hg) 80 89 Source Monitor Monitor Position Semi-Fowlers Blood Pressure Location Left Arm History Since Last Visit- (Skip if this is Patient's initial visit) Have you changed medications since your No No last visit? Any new allergies or adverse reactions No No Had a fall/change in ADL's that may No No increase risk of falls Signs or symptoms of abuse and/or No No neglect since last visit Have you been in the hospital since your No No last visit? Has dressing in place as prescribed Yes Yes Has compression in place as prescribed Yes Yes Has offloadiing in place as prescribed N/A No Experienced any changes in pain level or No No management Pain Scale: 0-10 Numeric Is Patient Pain Free? Yes Yes WC - Nurse 1 - General Ulcer Measurement Start: 06/10/23 10:13 Freq: Status: Active Protocol: Activity Type Activity Date Activity User E-sign Co-sign Detail Recorded Client Recorded Date Recorded By Document 06/10/23 10:13 DL [id number] 06/10/23 10:24 DL Document 06/17/23 10:12 RB [id number] 06/17/23 10:14 RB 06/10/23 06/17/23 10:13 10:12 Wound Center Nurse 1 #18 Left medial LE cluster -Combined with other wound No -Current Size (cm) - Length 10.4 11 -Current Size (cm) - Width 17 17.5 -Current Size (cm) - Depth 0.3 0.1 -Total Square Cm 176.8 192.5 -Photo Taken Yes -Tunneling No -Undermining/Tunneling No -Circular Undermining No -Exudate Amt Large Large -Exudate Type Serosanguineous Serosanguineous -Wound Margin Distinct, Distinct, Outline Outline Attached Attached -Granulation Amt Medium (34-66%) Medium (34-66%) -Granulation Quality Red [place] -Slough/Fibrin Yes -Necrosis Amt Medium (34-66%) Medium (34-66%) -Necrotic Tissue Type Adherent Slough Adherent Slough -Structure Exposed N/A N/A -Texture (Marie-wound Skin Appearance) Scarring Assessed, Excoriation -Moisture (Marie-wound Skin Appearance) Maceration Assessed -Color (Marie-wound Skin Appearance) Hemosiderin Assessed Staining -Temperature (Marie-wound Skin No Abnormality No Abnormality Appearance) (Pt Warm) (Pt Warm) -Tenderness on Palpation (Marie-wound No No Skin Appearance) -Ulcer Cleansing Soap and Water Wound Cleanser -Foul Odor after Cleansing No No -Anesthetic Used 4% Lidocaine 4% Lidocaine Solution Solution,5% Lidocaine Gel Lower Limb Edema Present Yes Left Calf (cm) 40 44 Left Ankle (cm) 29.4 32.5 WC - Nurse 2 - General Ulcer CM Notes Start: 06/10/23 10:13 Freq: Status: Active Protocol: Activity Type Activity Date Activity User E-sign Co-sign Detail Recorded Client Recorded Date Recorded By Document 06/10/23 13:14 PL [id number] 06/10/23 13:18 PL 06/10/23 13:14 Wound Center Nurse 2 #18 Left medial LE cluster -Time 10:32 -Correct Patient Yes -Correct Side, Site, Position Yes -Correct Procedure Yes -Procedure Performed Yes -Type of Procedure Debridement -Clinical Debridement Subcutaneous -Tissue Removed Subcutaneous -Post Debridement (cm) - Length 7.0 -Post Debridement (cm) - Width 13.0 -Post Debridement (cm) - Depth 0.2 -Total Square (Post) (cm) 91.00 -Area of Debridement (cm) - Length 7.0 -Area of Debridement (cm) - Width 13.0 -Total Square (Area) (cm) 91.00 -Tunneling No -Undermining/Tunneling No -Circular Undermining No -Wound/Ulcer Outcome Not Healed -Ulcer Cleansing Rinsed/ Irrigated with Saline -Foul Odor after Cleansing No -Bioengineered Tissue Yes -Type of Bioengineered Tissue Epifix Mesh -Expiration Date 02/08/28 -Product Lot Number [id number] -Percent Used 100 -Bleeding Controlled with Pressure -Treatment Response Procedure Tolerated Well -Debridement - Subq, 1st 20sq cm No -Apply Skin Sub - 1st 25 sq cm - Legs 1 -Apply Skin Sub - each addt'l 25 sq cm 3 - Legs -Epifix Mesh (per sq cm) 11 Pain Scale: 0-10 Numeric Is Patient Pain Free? Yes WC - Nurse 3 - General Ulcer D/C NN Start: 06/10/23 10:13 Freq: Status: Active Protocol: Activity Type Activity Date Activity User E-sign Co-sign Detail Recorded Client Recorded Date Recorded By Document 06/10/23 11:00 RB [id number] 06/10/23 11:01 RB Edit Result 06/10/23 11:00 RB (1) [id number] 06/10/23 11:03 RB (1) #18 Left medial LE cluster - Optilok 6.5x10 2 => 1 06/10/23 11:00 Wound Care Center Nurse 3 #18 Left medial LE cluster -Ulcer Cleansing Rinsed/ Irrigated with Saline -Primary Dressing Applied Aquacel Extra, Optilok 6.5x10 -Primary Dressing Covered/Secured with Dry Gauze & Roll Gauze, Secured with Tape -Aquacel Extra 1 -Optilok 6.5x10 1 Right -Tubular Bandage Single Layer -Size of Tubigrip Used Size E -Size E ($) 1 Left -Tubular Bandage Single Layer -Size of Tubigrip Used Size E -Size E ($) 1 Treatment Response Procedure Tolerated Well Pain Scale: 0-10 Numeric Is Patient Pain Free? Yes WC - Visit Discharge Discharge Condition Stable Ambulatory Status Ambulatory, Walker Transportation Private Auto Medication Reconcilliation completed & No provided to patient/care provider Clinical Summary of Care Provided Yes Assessment/Plan Assessment/Plan (1) Ulcer of left lower extremity with fat layer exposed: CODE(S): L97.922 - Non-pressure chronic ulcer of unspecified part of left lower leg with fat layer exposed (2) Venous insufficiency: CODE(S): I87.2 - Venous insufficiency (chronic) (peripheral) (3) Edema: CODE(S): R60.9 - Edema, unspecified QUALIFIERS: Edema type: unspecified Qualified Code(s): R60.9 - Edema, unspecified (4) History of CVA (cerebrovascular accident): CODE(S): Z86.73 - Personal history of transient ischemic attack (TIA), and cerebral infarction without residual deficits (5) 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 At home wound-care instructions: Will apply Aquacel Extra to the wound bed. Will cover with super absorber and KATE bandage changed Tuesday and Tuesday or daily if needed for excessive drainage. Consider Dakins or Aquacel Extra if odor or increased drainage. Off-loading: The patient was instructed to avoid pressure and friction on the affected areas. Reposition every 2 hours at minimum. Avoid prolonged standing and/or dangling of legs. When seated, feet should be elevated at chest level. Frequent ambulation is encouraged. Encouraged lymphedema pump use. Diet: Patient encouraged to increase protein intake while taking caution to avoid high carbohydrate and/or sugar intake. Labs/cultures/imaging: Wound culture showed 1+ Pseudomonas that is resistant to oral antibiotics. Wound culture showed rare growth on 05/13/23. Follow-up: Return in 1 week for wound care follow up and have secondary dressing changed by home health Tuesday and Tuesday. Return sooner or report to the emergency room should symptoms worsen, or new symptoms arise. Note: [facility] speech recognition organic search lead software was used to create portions of this document. Sound-alike and misspelled words, as well as other organic search lead errors may be contained in the documentation.
[2023-06-24 10:22] VITALS: BP 109/57; PULSE 65; RESP 18; TEMP 35.5
--- NOTE | 2023-06-24 13:02 | PN.PCM_ITS ---
History of Present Illness Date of Service: 06/24/23 Chief Complaint: venous ulcers of left lower extremity History of Wound: Mauricio is a 67 yo gentleman who is here today for evaluation of ulcers to to his bilateral lower legs. He has been treated multiple times in the past at the wound healing center for similar ulcers. The left LE ulcer started after he developed increased swelling and blisters of left leg in October and the right leg started sometime at the end of October. He was seen at PCP's office a culture was taken and it was resistant to several antibiotics. He was treated initially with Levaquin but had myalgias and then was treated with doxycycline which he finished 2 days ago. He denies improvement and is having swelling to his left calf and thigh. He has been having swelling to both lower extremities for many years and it has worsened over the last few months. He has not been compliant with compression. He has had increased pain especially in the left leg. He has clear yellow drainage and redness without odor or warmth. He is anti- coagulated on coumadin. He has been washing with Dial soap and witch ifrah. He had been using Collagen at times and using Calcium Alginate and covering with ABD pads during October. He was treated with 3M compression and Aquacel Ag. He was referred to the wound center for ongoing treatment. His ulcers have moderate to heavy drainage. He was recently hospitalized for cellulitis and edema for the last 10 days. He was in the hospital from 11/30/22 until 12/09/22 for treatment of cellulitis and edema. He underwent treatment with Vancomycin and IV lasix and compression. Discharged on 12/09/22 and is currently in the Skilled [facility] of [facility]. He returned to his assisted living apartment on Tuesday12/21/22. Subjective Subjective Ulcers are relatively unchanged but seem to be decreasing in size through islands between ulcers. Edema remains better. He did use pumps the past 2 weeks. Denies fever, chills, increased pain or increased drainage. Objective Data Objective Data Vital Signs: Vital Signs Temp Pulse Resp BP 95.9 F L 65 18 109/57 L 06/24/23 10:22 06/24/23 10:22 06/24/23 10:06/24/23 10:22 Physical Exam Const alert, oriented x3 and no apparent distress General Appearance: cooperative and comfortable HEENT normocephalic and head/scalp atraumatic Lymph Lymphatic: lymphedema moderate Resp normal respiratory effort Effort and Inspection: able to speak in complete sentences Cardio regular rate and regular rhythm Extremity General Extremity: edema bilateral lower extremity Details: severe Skin Wounds: wounds noted Wound Narrative: as in clinical panel Psych mental status grossly normal, thought process normal, cooperative and affect normal Debridement Note Debridement Note Wound debrided: left medial LE cluster Laterality: Left Type of Debridement: Excisional debridement Anesthesia Used: 4% Lidocaine Solution and 5% Lidocaine Gel Depth: Down to and including healthy tissue and in the subcutaneous layer Percentage of wound debrided: 100 Instrument Used: - (misonix ultrasonic debridement) Tissue Removed: Yellow slough, devitalized tissue Severity: Fat Layer Exposed Amount of bleeding with debridement: Mild Bleeding Controlled with: Compression and gauze Patient tolerated procedure: Patient tolerated procedure well Post-Debridement Measurements and Additional Note: Post-Debridement Measurements/Treatment - Nurse 1 - General Ulcer Assessment Start: 06/10/23 10:13 Freq: Status: Active Protocol: ONDINA Activity Type Activity Date Activity User E-sign Co-sign Detail Recorded Client Recorded Date Recorded By Document 06/10/23 10:13 DL [id number] 06/10/23 10:24 DL Document 06/17/23 10:12 RB [id number] 06/17/23 10:14 RB Document 06/24/23 10:22 RB [id number] 06/24/23 10:24 RB 06/10/23 06/17/23 06/24/23 10:13 10:12 10:22 - Today's Visit Information Type of service Follow-up Visit Follow-up Visit Follow-up Visit (Physician/FINISHING INSPECTOR (Physician/FINISHING INSPECTOR (Physician/FINISHING INSPECTOR ) ) ) Arrival Mode Ambulatory, Ambulatory Ambulatory, Walker Walker Transfer Assistance None None None Patient Identification Verified (Name & Yes Yes Yes ) Patient Requires Transmission-Based No No No Precautions Vital Signs Temperature (97.8 F-99.1 F) 98.1 F 96 F L 95.9 F L Temperature Source Temporal Temporal Temporal Pulse Rate (60-100) 69 68 65 Pulse Location Monitor Monitor Monitor Respiratory Rate (12-18) 20 H 18 18 Respiratory rate source Observation Observation Observation Blood Pressure (90/60-120/80) 114/63 116/76 109/57 L Blood Pressure Mean (mm Hg) 80 89 74 Source Monitor Monitor Monitor Position Semi-Fowlers Semi-Fowlers Blood Pressure Location Left Arm Left Arm History Since Last Visit- (Skip if this is Patient's initial visit) Have you changed medications since your No No No last visit? Any new allergies or adverse reactions No No No Had a fall/change in ADL's that may No No No increase risk of falls Signs or symptoms of abuse and/or No No No neglect since last visit Have you been in the hospital since your No No No last visit? Has dressing in place as prescribed Yes Yes Yes Has compression in place as prescribed Yes Yes Yes Has offloadiing in place as prescribed N/A No No Experienced any changes in pain level or No No No management Pain Scale: 0-10 Numeric Is Patient Pain Free? Yes Yes Yes WC - Nurse 1 - General Ulcer Measurement Start: 06/10/23 10:13 Freq: Status: Active Protocol: Activity Type Activity Date Activity User E-sign Co-sign Detail Recorded Client Recorded Date Recorded By Document 06/10/23 10:13 DL [id number] 06/10/23 10:24 DL Document 06/17/23 10:12 RB [id number] 06/17/23 10:14 RB Document 06/24/23 10:22 RB [id number] 06/24/23 10:24 RB 06/10/23 06/17/23 06/24/23 10:13 10:12 10:22 Wound Center Nurse 1 #18 Left medial LE cluster -Combined with other wound No No -Current Size (cm) - Length 10.4 11 11.5 -Current Size (cm) - Width 17 17.5 18 -Current Size (cm) - Depth 0.3 0.1 0.3 -Total Square Cm 176.8 192.5 207.0 -Photo Taken Yes Yes -Tunneling No No -Undermining/Tunneling No No -Circular Undermining No No -Exudate Amt Large Large Large -Exudate Type Serosanguineous Serosanguineous Serosanguineous -Wound Margin Distinct, Distinct, Distinct, Outline Outline Outline Attached Attached Attached -Granulation Amt Medium (34-66%) Medium (34-66%) Medium (34-66%) -Granulation Quality Red Landfall Landfall -Slough/Fibrin Yes Yes -Necrosis Amt Medium (34-66%) Medium (34-66%) Medium (34-66%) -Necrotic Tissue Type Adherent Slough Adherent Slough Adherent Slough -Structure Exposed N/A N/A N/A -Texture (Marie-wound Skin Appearance) Scarring Assessed, Assessed, Excoriation Excoriation -Moisture (Marie-wound Skin Appearance) Maceration Assessed Assessed -Color (Marie-wound Skin Appearance) Hemosiderin Assessed Assessed, Staining Erythema -Temperature (Marie-wound Skin No Abnormality No Abnormality No Abnormality Appearance) (Pt Warm) (Pt Warm) (Pt Warm) -Tenderness on Palpation (Marie-wound No No No Skin Appearance) -Ulcer Cleansing Soap and Water Wound Cleanser Wound Cleanser -Foul Odor after Cleansing No No No -Anesthetic Used 4% Lidocaine 4% Lidocaine 4% Lidocaine Solution Solution,5% Solution,5% Lidocaine Gel Lidocaine Gel Lower Limb Edema Present Yes Yes Left Calf (cm) 40 44 42 Left Ankle (cm) 29.4 32.5 30 WC - Nurse 2 - General Ulcer CM Notes Start: 06/10/23 10:13 Freq: Status: Active Protocol: Activity Type Activity Date Activity User E-sign Co-sign Detail Recorded Client Recorded Date Recorded By Document 06/10/23 13:14 [id number] 06/10/23 13:18 Document 06/17/23 12:41 [id number] 06/17/23 12:42 06/10/23 06/17/23 13:14 12:41 Wound Center Nurse 2 #18 Left medial LE cluster -Time 10:32 10:20 -Correct Patient Yes Yes -Correct Side, Site, Position Yes Yes -Correct Procedure Yes Yes -Procedure Performed Yes Yes -Type of Procedure Debridement Debridement -Clinical Debridement Subcutaneous Subcutaneous -Tissue Removed Subcutaneous Subcutaneous -Post Debridement (cm) - Length 7.0 6.8 -Post Debridement (cm) - Width 13.0 13.0 -Post Debridement (cm) - Depth 0.2 0.2 -Total Square (Post) (cm) 91.00 88.40 -Area of Debridement (cm) - Length 7.0 6.8 -Area of Debridement (cm) - Width 13.0 13.0 -Total Square (Area) (cm) 91.00 88.40 -Tunneling No No -Undermining/Tunneling No No -Circular Undermining No No -Wound/Ulcer Outcome Not Healed Not Healed -Ulcer Cleansing Rinsed/ Rinsed/ Irrigated with Irrigated with Saline Saline -Foul Odor after Cleansing No No -Bioengineered Tissue Yes No -Type of Bioengineered Tissue Epifix Mesh -Expiration Date 02/08/28 -Product Lot Number [id number] -Percent Used 100 -Bleeding Controlled with Pressure Pressure -Treatment Response Procedure Procedure Tolerated Well Tolerated Well -Debridement - Subq, 1st 20sq cm No Yes -Debridement, SubQ, ea addt'l 20sq cm 4 or part thereof -Apply Skin Sub - 1st 25 sq cm - Legs 1 -Apply Skin Sub - each addt'l 25 sq cm 3 - Legs -Epifix Mesh (per sq cm) 11 Pain Scale: 0-10 Numeric Is Patient Pain Free? Yes Yes WC - Nurse 3 - General Ulcer D/C NN Start: 06/10/23 10:13 Freq: Status: Active Protocol: Activity Type Activity Date Activity User E-sign Co-sign Detail Recorded Client Recorded Date Recorded By Document 06/10/23 11:00 RB [id number] 06/10/23 11:01 RB Edit Result 06/10/23 11:00 RB (1) [id number] 06/10/23 11:03 RB Document 06/17/23 11:09 RB [id number] 06/17/23 11:09 RB Document 06/24/23 11:14 RB [id number] 06/24/23 11:15 RB (1) #18 Left medial LE cluster - Optilok 6.5x10 2 => 1 06/10/23 06/17/23 06/24/23 11:00 11:09 11:14 Wound Care Center Nurse 3 #18 Left medial LE cluster -Ulcer Cleansing Rinsed/ Rinsed/ Rinsed/ Irrigated with Irrigated with Irrigated with Saline Saline Saline -Primary Dressing Applied Aquacel Extra, Aquacel Extra Aquacel Extra, Optilok 6.5x10 Optilok 8x12 -Other Dressing abd -Primary Dressing Covered/Secured with Dry Gauze & Dry Gauze & Dry Gauze & Roll Gauze, Roll Gauze, Roll Gauze, Secured with Secured with Secured with Tape Tape Tape -Aquacel Extra 1 2 2 -Optilok 6.5x10 1 -Optilok 8x12 1 Right -Tubular Bandage Single Layer Single Layer -Size of Tubigrip Used Size E Size E -Size E ($) 1 1 -Other pt own single layer tubigrip Left -Tubular Bandage Single Layer Single Layer Single Layer -Size of Tubigrip Used Size E Size E Size E -Size E ($) 1 1 1 Treatment Response Procedure Procedure Procedure Tolerated Well Tolerated Well Tolerated Well Pain Scale: 0-10 Numeric Is Patient Pain Free? Yes Yes Yes Teaching: Wound Center Compression Wraps & Stockings -Person Taught Patient -Teaching Method Discussion, Demonstration -Response to teaching Verbalize understanding WC - Visit Discharge Discharge Condition Stable Stable Stable Ambulatory Status Ambulatory, Ambulatory, Ambulatory, Walker Walker Walker Transportation Private Auto Private Auto Private Auto Medication Reconcilliation completed & No No No provided to patient/care provider Clinical Summary of Care Provided Yes Yes Yes Assessment/Plan Assessment/Plan (1) Ulcer of left lower extremity with fat layer exposed: CODE(S): L97.922 - Non-pressure chronic ulcer of unspecified part of left lower leg with fat layer exposed (2) Venous insufficiency: CODE(S): I87.2 - Venous insufficiency (chronic) (peripheral) (3) Edema: CODE(S): R60.9 - Edema, unspecified QUALIFIERS: Edema type: unspecified Qualified Code(s): R60.9 - Edema, unspecified (4) History of CVA (cerebrovascular accident): CODE(S): Z86.73 - Personal history of transient ischemic attack (TIA), and cerebral infarction without residual deficits (5) 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 At home wound-care instructions: Will apply Aquacel Extra to the wound bed. Will cover with super absorber and KATE bandage changed Tuesday and Tuesday or daily if needed for excessive drainage. Consider Dakins or Aquacel Extra if odor or increased drainage. Off-loading: The patient was instructed to avoid pressure and friction on the affected areas. Reposition every 2 hours at minimum. Avoid prolonged standing and/or dangling of legs. When seated, feet should be elevated at chest level. Frequent ambulation is encouraged. Encouraged lymphedema pump use. Diet: Patient encouraged to increase protein intake while taking caution to avoid high carbohydrate and/or sugar intake. Labs/cultures/imaging: Wound culture showed 1+ Pseudomonas that is resistant to oral antibiotics. Wound culture showed rare growth on 05/13/23. Follow-up: Return in 1 week for wound care follow up and have secondary dressing changed by home health Tuesday and Tuesday. Return sooner or report to the emergency room should symptoms worsen, or new symptoms arise. Note: [employer] speech recognition roofing technician software was used to create portions of this document. Sound-alike and misspelled words, as well as other roofing technician errors may be contained in the documentation.
[2023-07-01 10:25] VITALS: BP 115/70; PULSE 60; RESP 18; TEMP 35.7
--- NOTE | 2023-07-01 14:16 | PCM.WC.PN ---
History of Present Illness Date of Service: 07/01/23 Chief Complaint: venous ulcers of left lower extremity History of Wound: Mauricio is a 67 yo gentleman who is here today for evaluation of ulcers to to his bilateral lower legs. He has been treated multiple times in the past at the wound healing center for similar ulcers. The left LE ulcer started after he developed increased swelling and blisters of left leg in October and the right leg started sometime at the end of October. He was seen at PCP's office a culture was taken and it was resistant to several antibiotics. He was treated initially with Levaquin but had myalgias and then was treated with doxycycline which he finished 2 days ago. He denies improvement and is having swelling to his left calf and thigh. He has been having swelling to both lower extremities for many years and it has worsened over the last few months. He has not been compliant with compression. He has had increased pain especially in the left leg. He has clear yellow drainage and redness without odor or warmth. He is anti-coagulated on coumadin. He has been washing with Dial soap and witch ifrah. He had been using Collagen at times and using Calcium Alginate and covering with ABD pads during October. He was treated with 3M compression and Aquacel Ag. He was referred to the wound center for ongoing treatment. His ulcers have moderate to heavy drainage. He was recently hospitalized for cellulitis and edema for the last 10 days. He was in the hospital from 11/30/22 until 12/09/22 for treatment of cellulitis and edema. He underwent treatment with Vancomycin and IV lasix and compression. Discharged on 12/09/22 and is currently in the Skilled section of [facility]. He returned to his assisted living apartment on Tuesday12/21/22. Subjective Subjective Ulcers are relatively unchanged but seem to be decreasing in size through islands between ulcers. Edema remains better. He did use pumps. Denies fever, chills, increased pain or increased drainage. Objective Data Objective Data Vital Signs: Vital Signs Temp Pulse Resp BP 96.2 F L 60 18 115/70 07/01/23 10:25 07/01/23 10:25 07/01/23 10:25 07/01/23 10:25 Physical Exam Const alert, oriented x3 and no apparent distress General Appearance: cooperative and comfortable HEENT normocephalic and head/scalp atraumatic Lymph Lymphatic: lymphedema moderate Resp normal respiratory effort Effort and Inspection: able to speak in complete sentences Cardio regular rate and regular rhythm Extremity General Extremity: edema bilateral lower extremity Details: severe Skin Wounds: wounds noted Wound Narrative: as in clinical panel Psych mental status grossly normal, thought process normal, cooperative and affect normal Debridement Note Debridement Note Wound debrided: left medial LE cluster Laterality: Left Type of Debridement: Excisional debridement Anesthesia Used: 4% Lidocaine Solution and 5% Lidocaine Gel Depth: Down to and including healthy tissue and in the subcutaneous layer Percentage of wound debrided: 100 Instrument Used: - (misonix ultrasonic debridement) Tissue Removed: Yellow slough, devitalized tissue Severity: Fat Layer Exposed Amount of bleeding with debridement: Mild Bleeding Controlled with: Compression and gauze Patient tolerated procedure: Patient tolerated procedure well Post-Debridement Measurements and Additional Note: Post-Debridement Measurements/Treatment - Nurse 1 - General Ulcer Assessment Start: 06/10/23 10:13 Freq: Status: Active Protocol: ONDINA Activity Type Activity Date Activity User E-sign Co-sign Detail Recorded Client Recorded Date Recorded By Document 06/10/23 10:13 DL [id number] 06/10/23 10:24 DL Document 06/17/23 10:12 RB [id number] 06/17/23 10:14 RB Document 06/24/23 10:22 RB [id number] 06/24/23 10:24 RB Document 07/01/23 10:25 RB Desktop 07/01/23 10:29 RB 06/10/23 06/17/23 06/24/23 10:13 10:12 10:22 - Today's Visit Information Type of service Follow-up Visit Follow-up Visit Follow-up Visit (Physician/ELECTROPLATING SALES REPRESENTATIVE (Physician/ELECTROPLATING SALES REPRESENTATIVE (Physician/ELECTROPLATING SALES REPRESENTATIVE ) ) ) Arrival Mode Ambulatory, Ambulatory Ambulatory, Walker Walker Transfer Assistance None None None Patient Identification Verified (Name & Yes Yes Yes ) Patient Requires Transmission-Based No No No Precautions Vital Signs Temperature (97.8 F-99.1 F) 98.1 F 96 F L 95.9 F L Temperature Source Temporal Temporal Temporal Pulse Rate (60-100) 69 68 65 Pulse Location Monitor Monitor Monitor Respiratory Rate (12-18) 20 H 18 18 Respiratory rate source Observation Observation Observation Blood Pressure (90/60-120/80) 114/63 116/76 109/57 L Blood Pressure Mean (mm Hg) 80 89 74 Source Monitor Monitor Monitor Position Semi-Fowlers Semi-Fowlers Blood Pressure Location Left Arm Left Arm History Since Last Visit- (Skip if this is Patient's initial visit) Have you changed medications since your No No No last visit? Any new allergies or adverse reactions No No No Had a fall/change in ADL's that may No No No increase risk of falls Signs or symptoms of abuse and/or No No No neglect since last visit Have you been in the hospital since your No No No last visit? Has dressing in place as prescribed Yes Yes Yes Has compression in place as prescribed Yes Yes Yes Has offloadiing in place as prescribed N/A No No Experienced any changes in pain level or No No No management Pain Scale: 0-10 Numeric Is Patient Pain Free? Yes Yes Yes 07/01/23 10:25 WC - Today's Visit Information Type of service Follow-up Visit (Physician/ELECTROPLATING SALES REPRESENTATIVE ) Arrival Mode Ambulatory, Walker Transfer Assistance None Patient Identification Verified (Name & Yes ) Patient Requires Transmission-Based No Precautions Vital Signs Temperature (97.8 F-99.1 F) 96.2 F L Temperature Source Temporal Pulse Rate (60-100) 60 Pulse Location Monitor Respiratory Rate (12-18) 18 Respiratory rate source Observation Blood Pressure (90/60-120/80) 115/70 Blood Pressure Mean (mm Hg) 85 Source Monitor Position Semi-Fowlers Blood Pressure Location Left Arm History Since Last Visit- (Skip if this is Patient's initial visit) Have you changed medications since your No last visit? Any new allergies or adverse reactions No Had a fall/change in ADL's that may No increase risk of falls Signs or symptoms of abuse and/or No neglect since last visit Have you been in the hospital since your No last visit? Has dressing in place as prescribed Yes Has compression in place as prescribed Yes Has offloadiing in place as prescribed No Experienced any changes in pain level or No management Pain Scale: 0-10 Numeric Is Patient Pain Free? Yes - Nurse 1 - General Ulcer Measurement Start: 06/10/23 10:13 Freq: Status: Active Protocol: Activity Type Activity Date Activity User E-sign Co-sign Detail Recorded Client Recorded Date Recorded By Document 06/10/23 10:13 DL [id number] 06/10/23 10:24 DL Document 06/17/23 10:12 RB [id number] 06/17/23 10:14 RB Document 06/24/23 10:22 RB [id number] 06/24/23 10:24 RB Document 07/01/23 10:25 RB Desktop 07/01/23 10:29 RB 06/10/23 06/17/23 06/24/23 10:13 10:12 10:22 Wound Center Nurse 1 #18 Left medial LE cluster -Combined with other wound No No -Current Size (cm) - Length 10.4 11 11.5 -Current Size (cm) - Width 17 17.5 18 -Current Size (cm) - Depth 0.3 0.1 0.3 -Total Square Cm 176.8 192.5 207.0 -Photo Taken Yes Yes -Tunneling No No -Undermining/Tunneling No No -Circular Undermining No No -Exudate Amt Large Large Large -Exudate Type Serosanguineous Serosanguineous Serosanguineous -Wound Margin Distinct, Distinct, Distinct, Outline Outline Outline Attached Attached Attached -Granulation Amt Medium (34-66%) Medium (34-66%) Medium (34-66%) -Granulation Quality Red [place] -Slough/Fibrin Yes Yes -Necrosis Amt Medium (34-66%) Medium (34-66%) Medium (34-66%) -Necrotic Tissue Type Adherent Slough Adherent Slough Adherent Slough -Structure Exposed N/A N/A N/A -Texture (Marie-wound Skin Appearance) Scarring Assessed, Assessed, Excoriation Excoriation -Moisture (Marie-wound Skin Appearance) Maceration Assessed Assessed -Color (Marie-wound Skin Appearance) Hemosiderin Assessed Assessed, Staining Erythema -Temperature (Marie-wound Skin No Abnormality No Abnormality No Abnormality Appearance) (Pt Warm) (Pt Warm) (Pt Warm) -Tenderness on Palpation (Marie-wound No No No Skin Appearance) -Ulcer Cleansing Soap and Water Wound Cleanser Wound Cleanser -Foul Odor after Cleansing No No No -Anesthetic Used 4% Lidocaine 4% Lidocaine 4% Lidocaine Solution Solution,5% Solution,5% Lidocaine Gel Lidocaine Gel Lower Limb Edema Present Yes Yes Left Calf (cm) 40 44 42 Left Ankle (cm) 29.4 32.5 30 07/01/23 10:25 Wound Center Nurse 1 #18 Left medial LE cluster -Combined with other wound No -Current Size (cm) - Length 12 -Current Size (cm) - Width 18 -Current Size (cm) - Depth 0.2 -Total Square Cm 216 -Photo Taken -Tunneling No -Undermining/Tunneling No -Circular Undermining No -Exudate Amt Medium -Exudate Type Serosanguineous -Wound Margin Distinct, Outline Attached -Granulation Amt Medium (34-66%) -Granulation Quality [place] -Slough/Fibrin Yes -Necrosis Amt Medium (34-66%) -Necrotic Tissue Type Adherent Slough -Structure Exposed N/A -Texture (Marie-wound Skin Appearance) Assessed, Excoriation -Moisture (Marie-wound Skin Appearance) Assessed -Color (Marie-wound Skin Appearance) Assessed -Temperature (Marie-wound Skin No Abnormality Appearance) (Pt Warm) -Tenderness on Palpation (Marie-wound No Skin Appearance) -Ulcer Cleansing Wound Cleanser -Foul Odor after Cleansing No -Anesthetic Used 4% Lidocaine Solution,5% Lidocaine Gel Lower Limb Edema Present Yes Left Calf (cm) 45 Left Ankle (cm) 30 WC - Nurse 2 - General Ulcer CM Notes Start: 06/10/23 10:13 Freq: Status: Active Protocol: Activity Type Activity Date Activity User E-sign Co-sign Detail Recorded Client Recorded Date Recorded By Document 06/10/23 13:14 [id number] 06/10/23 13:18 Document 06/17/23 12:41 [id number] 06/17/23 12:42 PL Document 06/24/23 13:36 [id number] 06/24/23 13:43 Document 07/01/23 13:09 [id number] 07/01/23 13:11 06/10/23 06/17/23 06/24/23 13:14 12:41 13:36 Wound Center Nurse 2 #18 Left medial LE cluster -Time 10:32 10:20 10:41 -Correct Patient Yes Yes Yes -Correct Side, Site, Position Yes Yes Yes -Correct Procedure Yes Yes Yes -Procedure Performed Yes Yes Yes -Type of Procedure Debridement Debridement Debridement -Clinical Debridement Subcutaneous Subcutaneous Subcutaneous -Tissue Removed Subcutaneous Subcutaneous Subcutaneous -Post Debridement (cm) - Length 7.0 6.8 10.5 -Post Debridement (cm) - Width 13.0 13.0 17.5 -Post Debridement (cm) - Depth 0.2 0.2 0.2 -Total Square (Post) (cm) 91.00 88.40 183.75 -Area of Debridement (cm) - Length 7.0 6.8 10.5 -Area of Debridement (cm) - Width 13.0 13.0 17.5 -Total Square (Area) (cm) 91.00 88.40 183.75 -Tunneling No No No -Undermining/Tunneling No No No -Circular Undermining No No No -Wound/Ulcer Outcome Not Healed Not Healed Not Healed -Ulcer Cleansing Rinsed/ Rinsed/ Rinsed/ Irrigated with Irrigated with Irrigated with Saline Saline Saline -Foul Odor after Cleansing No No No -Bioengineered Tissue Yes No No -Type of Bioengineered Tissue Epifix Mesh -Expiration Date 02/08/28 -Product Lot Number [id number] -Percent Used 100 -Bleeding Controlled with Pressure Pressure -Treatment Response Procedure Procedure Tolerated Well Tolerated Well -Debridement - Subq, 1st 20sq cm No Yes Yes -Debridement, SubQ, ea addt'l 20sq cm 4 9 or part thereof -Apply Skin Sub - 1st 25 sq cm - Legs 1 -Apply Skin Sub - each addt'l 25 sq cm 3 - Legs -Epifix Mesh (per sq cm) 11 Pain Scale: 0-10 Numeric Is Patient Pain Free? Yes Yes Yes 07/01/23 13:09 Wound Center Nurse 2 #18 Left medial LE cluster -Time 11:00 -Correct Patient Yes -Correct Side, Site, Position Yes -Correct Procedure Yes -Procedure Performed Yes -Type of Procedure Debridement -Clinical Debridement Subcutaneous -Tissue Removed Subcutaneous -Post Debridement (cm) - Length 12.0 -Post Debridement (cm) - Width 15.0 -Post Debridement (cm) - Depth 0.3 -Total Square (Post) (cm) 180.00 -Area of Debridement (cm) - Length 12 -Area of Debridement (cm) - Width 15 -Total Square (Area) (cm) 180 -Tunneling No -Undermining/Tunneling No -Circular Undermining No -Wound/Ulcer Outcome Not Healed -Ulcer Cleansing Rinsed/ Irrigated with Saline -Foul Odor after Cleansing No -Bioengineered Tissue No -Type of Bioengineered Tissue -Expiration Date -Product Lot Number -Percent Used -Bleeding Controlled with Pressure -Treatment Response Procedure Tolerated Well -Debridement - Subq, 1st 20sq cm Yes -Debridement, SubQ, ea addt'l 20sq cm 8 or part thereof -Apply Skin Sub - 1st 25 sq cm - Legs -Apply Skin Sub - each addt'l 25 sq cm - Legs -Epifix Mesh (per sq cm) Pain Scale: 0-10 Numeric Is Patient Pain Free? Yes WC - Nurse 3 - General Ulcer D/C NN Start: 06/10/23 10:13 Freq: Status: Active Protocol: Activity Type Activity Date Activity User E-sign Co-sign Detail Recorded Client Recorded Date Recorded By Document 06/10/23 11:00 RB [id number] 06/10/23 11:01 RB Edit Result 06/10/23 11:00 RB (1) [id number] 06/10/23 11:03 RB Document 06/17/23 11:09 RB [id number] 06/17/23 11:09 RB Document 06/24/23 11:14 RB [id number] 06/24/23 11:15 RB Document 07/01/23 11:47 RB Desktop 07/01/23 11:48 RB (1) #18 Left medial LE cluster - Optilok 6.5x10 2 => 1 06/10/23 06/17/23 06/24/23 11:00 11:09 11:14 Wound Care Center Nurse 3 #18 Left medial LE cluster -Ulcer Cleansing Rinsed/ Rinsed/ Rinsed/ Irrigated with Irrigated with Irrigated with Saline Saline Saline -Primary Dressing Applied Aquacel Extra, Aquacel Extra Aquacel Extra, Optilok 6.5x10 Optilok 8x12 -Other Dressing abd -Primary Dressing Covered/Secured with Dry Gauze & Dry Gauze & Dry Gauze & Roll Gauze, Roll Gauze, Roll Gauze, Secured with Secured with Secured with Tape Tape Tape -Aquacel Extra 1 2 2 -Aquacel AG 4x4 -Optilok 6.5x10 1 -Optilok 8x12 1 Right -Tubular Bandage Single Layer Single Layer -Size of Tubigrip Used Size E Size E -Size E ($) 1 1 -Other pt own single layer tubigrip Left -Tubular Bandage Single Layer Single Layer Single Layer -Size of Tubigrip Used Size E Size E Size E -Size E ($) 1 1 1 Treatment Response Procedure Procedure Procedure Tolerated Well Tolerated Well Tolerated Well Pain Scale: 0-10 Numeric Is Patient Pain Free? Yes Yes Yes Teaching: Wound Center Compression Wraps & Stockings -Person Taught Patient -Teaching Method Discussion, Demonstration -Response to teaching Verbalize understanding WC - Visit Discharge Discharge Condition Stable Stable Stable Ambulatory Status Ambulatory, Ambulatory, Ambulatory, Walker Walker Walker Transportation Private Auto Private Auto Private Auto Medication Reconcilliation completed & No No No provided to patient/care provider Clinical Summary of Care Provided Yes Yes Yes 07/01/23 11:47 Wound Care Center Nurse 3 #18 Left medial LE cluster -Ulcer Cleansing Rinsed/ Irrigated with Saline -Primary Dressing Applied Aquacel AG 4x4, Optilok 8x12 -Other Dressing -Primary Dressing Covered/Secured with Dry Gauze & Roll Gauze, Secured with Tape -Aquacel Extra -Aquacel AG 4x4 2 -Optilok 6.5x10 -Optilok 8x12 1 Right -Tubular Bandage Single Layer -Size of Tubigrip Used Size E -Size E ($) 1 -Other Left -Tubular Bandage Single Layer -Size of Tubigrip Used Size E -Size E ($) 1 Treatment Response Procedure Tolerated Well Pain Scale: 0-10 Numeric Is Patient Pain Free? Yes Teaching: Wound Center Compression Wraps & Stockings -Person Taught -Teaching Method -Response to teaching WC - Visit Discharge Discharge Condition Stable Ambulatory Status Ambulatory, Walker Transportation Private Auto Medication Reconcilliation completed & No provided to patient/care provider Clinical Summary of Care Provided Yes Assessment/Plan Assessment/Plan (1) Ulcer of left lower extremity with fat layer exposed: CODE(S): L97.922 - Non-pressure chronic ulcer of unspecified part of left lower leg with fat layer exposed (2) Venous insufficiency: CODE(S): I87.2 - Venous insufficiency (chronic) (peripheral) (3) Edema: CODE(S): R60.9 - Edema, unspecified QUALIFIERS: Edema type: unspecified Qualified Code(s): R60.9 - Edema, unspecified (4) History of CVA (cerebrovascular accident): CODE(S): Z86.73 - Personal history of transient ischemic attack (TIA), and cerebral infarction without residual deficits (5) 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 At home wound-care instructions: Will apply Aquacel Ag to the wound bed. Will cover with super absorber and KATE bandage changed daily for heavy drainage. Consider Dakins. Off-loading: The patient was instructed to avoid pressure and friction on the affected areas. Reposition every 2 hours at minimum. Avoid prolonged standing and/or dangling of legs. When seated, feet should be elevated at chest level. Frequent ambulation is encouraged. Encouraged lymphedema pump use. Diet: Patient encouraged to increase protein intake while taking caution to avoid high carbohydrate and/or sugar intake. Labs/cultures/imaging: Wound culture showed 1+ Pseudomonas that is resistant to oral antibiotics. Wound culture showed rare growth on 05/13/23. Follow-up: Return in 1 week for wound care follow up and have secondary dressing changed by home health Tuesday and Tuesday. Return sooner or report to the emergency room should symptoms worsen, or new symptoms arise. Note: [employer] speech recognition assembler corncob pipes software was used to create portions of this document. Sound-alike and misspelled words, as well as other assembler corncob pipes errors may be contained in the documentation.
[2023-07-08 10:26] VITALS: BP 109/61; PULSE 60; RESP 18; TEMP 36.1
--- NOTE | 2023-07-08 12:52 | PCM.WC.PN ---
History of Present Illness Date of Service: 07/08/23 Chief Complaint: venous ulcers of left lower extremity History of Wound: Mauricio is a 67 yo gentleman who is here today for evaluation of ulcers to to his bilateral lower legs. He has been treated multiple times in the past at the wound healing center for similar ulcers. The left LE ulcer started after he developed increased swelling and blisters of left leg in October and the right leg started sometime at the end of October. He was seen at PCP's office a culture was taken and it was resistant to several antibiotics. He was treated initially with Levaquin but had myalgias and then was treated with doxycycline which he finished 2 days ago. He denies improvement and is having swelling to his left calf and thigh. He has been having swelling to both lower extremities for many years and it has worsened over the last few months. He has not been compliant with compression. He has had increased pain especially in the left leg. He has clear yellow drainage and redness without odor or warmth. He is anti-coagulated on coumadin. He has been washing with Dial soap and witch ifrah. He had been using Collagen at times and using Calcium Alginate and covering with ABD pads during October. He was treated with 3M compression and Aquacel Ag. He was referred to the wound center for ongoing treatment. His ulcers have moderate to heavy drainage. He was recently hospitalized for cellulitis and edema for the last 10 days. He was in the hospital from 11/30/22 until 12/09/22 for treatment of cellulitis and edema. He underwent treatment with Vancomycin and IV lasix and compression. Discharged on 12/09/22 and is currently in the [facility] He returned to his assisted living apartment on Tuesday12/21/22. Subjective Subjective Ulcers are relatively unchanged but seem to be decreasing in size through islands between ulcers. Edema is worse today. He did use pumps. Denies fever, chills, increased pain or increased drainage. Wound culture was positive for Pseudomonas. Objective Data Objective Data Vital Signs: Vital Signs Temp Pulse Resp BP 97 F L 60 18 109/61 07/08/23 10:26 07/08/23 10:26 07/08/23 10:26 07/08/23 10:26 Lab / Micro Data Micro: Microbiology 07/01/23 11:10 Wound - Leg, Left Gram Stain - Final 07/01/23 11:10 Wound - Leg, Left Wound Culture - Final Pseudomonas aeruginosa 07/01/23 11:10 Wound - Leg, Left Anaerobic Culture - Final No growth in 5 days. Physical Exam Const alert, oriented x3 and no apparent distress General Appearance: cooperative and comfortable HEENT normocephalic and head/scalp atraumatic Lymph Lymphatic: lymphedema moderate Resp normal respiratory effort Effort and Inspection: able to speak in complete sentences Cardio regular rate and regular rhythm Extremity General Extremity: edema bilateral lower extremity Details: severe Skin Wounds: wounds noted Wound Narrative: as in clinical panel Psych mental status grossly normal, thought process normal, cooperative and affect normal Debridement Note Debridement Note Wound debrided: left medial LE cluster Laterality: Left Type of Debridement: Excisional debridement Anesthesia Used: 4% Lidocaine Solution and 5% Lidocaine Gel Depth: Down to and including healthy tissue and in the subcutaneous layer Percentage of wound debrided: 100 Instrument Used: - (misonix ultrasonic debridement) Tissue Removed: Yellow slough, devitalized tissue Severity: Fat Layer Exposed Amount of bleeding with debridement: Mild Bleeding Controlled with: Compression and gauze Patient tolerated procedure: Patient tolerated procedure well Post-Debridement Measurements and Additional Note: Post-Debridement Measurements/Treatment - Nurse 1 - General Ulcer Assessment Start: 06/10/23 10:13 Freq: Status: Active Protocol: ONDINA Activity Type Activity Date Activity User E-sign Co-sign Detail Recorded Client Recorded Date Recorded By Document 06/10/23 10:13 DL [id number] 06/10/23 10:24 DL Document 06/17/23 10:12 RB [id number] 06/17/23 10:14 RB Document 06/24/23 10:22 RB [id number] 06/24/23 10:24 RB Document 07/01/23 10:25 RB Desktop 07/01/23 10:29 RB Document 07/08/23 10:26 RB Desktop 07/08/23 10:28 RB 06/10/23 06/17/23 06/24/23 10:13 10:12 10:22 - Today's Visit Information Type of service Follow-up Visit Follow-up Visit Follow-up Visit (Physician/VP DIRECTOR OF CREATIVE STRATEGY (Physician/VP DIRECTOR OF CREATIVE STRATEGY (Physician/VP DIRECTOR OF CREATIVE STRATEGY ) ) ) Arrival Mode Ambulatory, Ambulatory Ambulatory, Walker Walker Transfer Assistance None None None Patient Identification Verified (Name & Yes Yes Yes ) Patient Requires Transmission-Based No No No Precautions Vital Signs Temperature (97.8 F-99.1 F) 98.1 F 96 F L 95.9 F L Temperature Source Temporal Temporal Temporal Pulse Rate (60-100) 69 68 65 Pulse Location Monitor Monitor Monitor Respiratory Rate (12-18) 20 H 18 18 Respiratory rate source Observation Observation Observation Blood Pressure (90/60-120/80) 114/63 116/76 109/57 L Blood Pressure Mean (mm Hg) 80 89 74 Source Monitor Monitor Monitor Position Semi-Fowlers Semi-Fowlers Blood Pressure Location Left Arm Left Arm History Since Last Visit- (Skip if this is Patient's initial visit) Have you changed medications since your No No No last visit? Any new allergies or adverse reactions No No No Had a fall/change in ADL's that may No No No increase risk of falls Signs or symptoms of abuse and/or No No No neglect since last visit Have you been in the hospital since your No No No last visit? Has dressing in place as prescribed Yes Yes Yes Has compression in place as prescribed Yes Yes Yes Has offloadiing in place as prescribed N/A No No Experienced any changes in pain level or No No No management Pain Scale: 0-10 Numeric Is Patient Pain Free? Yes Yes Yes 07/01/23 07/08/23 10:25 10:26 - Today's Visit Information Type of service Follow-up Visit Follow-up Visit (Physician/VP DIRECTOR OF CREATIVE STRATEGY (Physician/VP DIRECTOR OF CREATIVE STRATEGY ) ) Arrival Mode Ambulatory, Ambulatory, Walker Walker Transfer Assistance None None Patient Identification Verified (Name & Yes Yes ) Patient Requires Transmission-Based No No Precautions Vital Signs Temperature (97.8 F-99.1 F) 96.2 F L 97 F L Temperature Source Temporal Temporal Pulse Rate (60-100) 60 60 Pulse Location Monitor Monitor Respiratory Rate (12-18) 18 18 Respiratory rate source Observation Observation Blood Pressure (90/60-120/80) 115/70 109/61 Blood Pressure Mean (mm Hg) 85 77 Source Monitor Monitor Position Semi-Fowlers Semi-Fowlers Blood Pressure Location Left Arm Left Arm History Since Last Visit- (Skip if this is Patient's initial visit) Have you changed medications since your No No last visit? Any new allergies or adverse reactions No No Had a fall/change in ADL's that may No No increase risk of falls Signs or symptoms of abuse and/or No No neglect since last visit Have you been in the hospital since your No No last visit? Has dressing in place as prescribed Yes Yes Has compression in place as prescribed Yes Yes Has offloadiing in place as prescribed No No Experienced any changes in pain level or No No management Pain Scale: 0-10 Numeric Is Patient Pain Free? Yes No WC - Nurse 1 - General Ulcer Measurement Start: 06/10/23 10:13 Freq: Status: Active Protocol: Activity Type Activity Date Activity User E-sign Co-sign Detail Recorded Client Recorded Date Recorded By Document 06/10/23 10:13 DL [id number] 06/10/23 10:24 DL Document 06/17/23 10:12 RB [id number] 06/17/23 10:14 RB Document 06/24/23 10:22 RB [id number] 06/24/23 10:24 RB Document 07/01/23 10:25 RB Desktop 07/01/23 10:29 RB Document 07/08/23 10:26 RB Desktop 07/08/23 10:28 RB 06/10/23 06/17/23 06/24/23 10:13 10:12 10:22 Wound Center Nurse 1 #18 Left medial LE cluster -Combined with other wound No No -Current Size (cm) - Length 10.4 11 11.5 -Current Size (cm) - Width 17 17.5 18 -Current Size (cm) - Depth 0.3 0.1 0.3 -Total Square Cm 176.8 192.5 207.0 -Photo Taken Yes Yes -Tunneling No No -Undermining/Tunneling No No -Circular Undermining No No -Exudate Amt Large Large Large -Exudate Type Serosanguineous Serosanguineous Serosanguineous -Wound Margin Distinct, Distinct, Distinct, Outline Outline Outline Attached Attached Attached -Granulation Amt Medium (34-66%) Medium (34-66%) Medium (34-66%) -Granulation Quality Red Jenera Jenera -Slough/Fibrin Yes Yes -Necrosis Amt Medium (34-66%) Medium (34-66%) Medium (34-66%) -Necrotic Tissue Type Adherent Slough Adherent Slough Adherent Slough -Structure Exposed N/A N/A N/A -Texture (Marie-wound Skin Appearance) Scarring Assessed, Assessed, Excoriation Excoriation -Moisture (Marie-wound Skin Appearance) Maceration Assessed Assessed -Color (Marie-wound Skin Appearance) Hemosiderin Assessed Assessed, Staining Erythema -Temperature (Marei-wound Skin No Abnormality No Abnormality No Abnormality Appearance) (Pt Warm) (Pt Warm) (Pt Warm) -Tenderness on Palpation (Marie-wound No No No Skin Appearance) -Ulcer Cleansing Soap and Water Wound Cleanser Wound Cleanser -Foul Odor after Cleansing No No No -Anesthetic Used 4% Lidocaine 4% Lidocaine 4% Lidocaine Solution Solution,5% Solution,5% Lidocaine Gel Lidocaine Gel Lower Limb Edema Present Yes Yes Left Calf (cm) 40 44 42 Left Ankle (cm) 29.4 32.5 30 07/01/23 07/08/23 10:25 10:26 Wound Center Nurse 1 #18 Left medial LE cluster -Combined with other wound No No -Current Size (cm) - Length 12 11.5 -Current Size (cm) - Width 18 17 -Current Size (cm) - Depth 0.2 0.2 -Total Square Cm 216 195.5 -Photo Taken -Tunneling No No -Undermining/Tunneling No No -Circular Undermining No No -Exudate Amt Medium Large -Exudate Type Serosanguineous Serosanguineous -Wound Margin Distinct, Distinct, Outline Outline Attached Attached -Granulation Amt Medium (34-66%) Large (67-100%) -Granulation Quality Jenera Jenera,Red -Slough/Fibrin Yes Yes -Necrosis Amt Medium (34-66%) Medium (34-66%) -Necrotic Tissue Type Adherent Slough Adherent Slough -Structure Exposed N/A N/A -Texture (Marie-wound Skin Appearance) Assessed, Assessed, Excoriation Excoriation -Moisture (Marie-wound Skin Appearance) Assessed Assessed -Color (Marie-wound Skin Appearance) Assessed Assessed -Temperature (Marie-wound Skin No Abnormality No Abnormality Appearance) (Pt Warm) (Pt Warm) -Tenderness on Palpation (Marie-wound No No Skin Appearance) -Ulcer Cleansing Wound Cleanser Wound Cleanser -Foul Odor after Cleansing No No -Anesthetic Used 4% Lidocaine 4% Lidocaine Solution,5% Solution,5% Lidocaine Gel Lidocaine Gel Lower Limb Edema Present Yes Yes Left Calf (cm) 45 44.5 Left Ankle (cm) 30 31 WC - Nurse 2 - General Ulcer CM Notes Start: 06/10/23 10:13 Freq: Status: Active Protocol: Activity Type Activity Date Activity User E-sign Co-sign Detail Recorded Client Recorded Date Recorded By Document 06/10/23 13:14 PL [id number] 06/10/23 13:18 PL Document 06/17/23 12:41 PL [id number] 06/17/23 12:42 PL Document 06/24/23 13:36 PL [id number] 06/24/23 13:43 PL Document 07/01/23 13:09 PL [id number] 07/01/23 13:11 PL Document 07/08/23 12:39 GM [id number] 07/08/23 12:40 GM 06/10/23 06/17/23 06/24/23 13:14 12:41 13:36 Wound Center Nurse 2 #18 Left medial LE cluster -Time 10:32 10:20 10:41 -Correct Patient Yes Yes Yes -Correct Side, Site, Position Yes Yes Yes -Correct Procedure Yes Yes Yes -Procedure Performed Yes Yes Yes -Type of Procedure Debridement Debridement Debridement -Clinical Debridement Subcutaneous Subcutaneous Subcutaneous -Tissue Removed Subcutaneous Subcutaneous Subcutaneous -Post Debridement (cm) - Length 7.0 6.8 10.5 -Post Debridement (cm) - Width 13.0 13.0 17.5 -Post Debridement (cm) - Depth 0.2 0.2 0.2 -Total Square (Post) (cm) 91.00 88.40 183.75 -Area of Debridement (cm) - Length 7.0 6.8 10.5 -Area of Debridement (cm) - Width 13.0 13.0 17.5 -Total Square (Area) (cm) 91.00 88.40 183.75 -Tunneling No No No -Undermining/Tunneling No No No -Circular Undermining No No No -Wound/Ulcer Outcome Not Healed Not Healed Not Healed -Ulcer Cleansing Rinsed/ Rinsed/ Rinsed/ Irrigated with Irrigated with Irrigated with Saline Saline Saline -Foul Odor after Cleansing No No No -Bioengineered Tissue Yes No No -Type of Bioengineered Tissue Epifix Mesh -Expiration Date 02/08/28 -Product Lot Number [id number] -Percent Used 100 -Bleeding Controlled with Pressure Pressure -Treatment Response Procedure Procedure Tolerated Well Tolerated Well -Debridement - Subq, 1st 20sq cm No Yes Yes -Debridement, SubQ, ea addt'l 20sq cm 4 9 or part thereof -Apply Skin Sub - 1st 25 sq cm - Legs 1 -Apply Skin Sub - each addt'l 25 sq cm 3 - Legs -Epifix Mesh (per sq cm) 11 Pain Scale: 0-10 Numeric Is Patient Pain Free? Yes Yes Yes 07/01/23 07/08/23 13:09 12:39 Wound Center Nurse 2 #18 Left medial LE cluster -Time 11:00 10:50 -Correct Patient Yes Yes -Correct Side, Site, Position Yes Yes -Correct Procedure Yes Yes -Procedure Performed Yes Yes -Type of Procedure Debridement Debridement -Clinical Debridement Subcutaneous Subcutaneous -Tissue Removed Subcutaneous Subcutaneous -Post Debridement (cm) - Length 12.0 10.5 -Post Debridement (cm) - Width 15.0 16 -Post Debridement (cm) - Depth 0.3 0.2 -Total Square (Post) (cm) 180.00 168.0 -Area of Debridement (cm) - Length 12 10.5 -Area of Debridement (cm) - Width 15 16 -Total Square (Area) (cm) 180 168.0 -Tunneling No No -Undermining/Tunneling No No -Circular Undermining No -Wound/Ulcer Outcome Not Healed Not Healed -Ulcer Cleansing Rinsed/ Rinsed/ Irrigated with Irrigated with Saline Saline -Foul Odor after Cleansing No No -Bioengineered Tissue No No -Type of Bioengineered Tissue -Expiration Date -Product Lot Number -Percent Used -Bleeding Controlled with Pressure Pressure -Treatment Response Procedure Procedure Tolerated Well Tolerated Well -Debridement - Subq, 1st 20sq cm Yes Yes -Debridement, SubQ, ea addt'l 20sq cm 8 8 or part thereof -Apply Skin Sub - 1st 25 sq cm - Legs -Apply Skin Sub - each addt'l 25 sq cm - Legs -Epifix Mesh (per sq cm) Pain Scale: 0-10 Numeric Is Patient Pain Free? Yes Yes WC - Nurse 3 - General Ulcer D/C NN Start: 06/10/23 10:13 Freq: Status: Active Protocol: Activity Type Activity Date Activity User E-sign Co-sign Detail Recorded Client Recorded Date Recorded By Document 06/10/23 11:00 RB [id number] 06/10/23 11:01 RB Edit Result 06/10/23 11:00 RB (1) [id number] 06/10/23 11:03 RB Document 06/17/23 11:09 RB [id number] 06/17/23 11:09 RB Document 06/24/23 11:14 RB [id number] 06/24/23 11:15 RB Document 07/01/23 11:47 RB Desktop 07/01/23 11:48 RB Document 07/08/23 12:39 RB [id number] 07/08/23 12:40 RB (1) #18 Left medial LE cluster - Optilok 6.5x10 2 => 1 06/10/23 06/17/23 06/24/23 11:00 11:09 11:14 Wound Care Center Nurse 3 #18 Left medial LE cluster -Ulcer Cleansing Rinsed/ Rinsed/ Rinsed/ Irrigated with Irrigated with Irrigated with Saline Saline Saline -Primary Dressing Applied Aquacel Extra, Aquacel Extra Aquacel Extra, Optilok 6.5x10 Optilok 8x12 -Other Dressing abd -Primary Dressing Covered/Secured with Dry Gauze & Dry Gauze & Dry Gauze & Roll Gauze, Roll Gauze, Roll Gauze, Secured with Secured with Secured with Tape Tape Tape -Aquacel Extra 1 2 2 -Aquacel AG 4x4 -Optilok 6.5x10 1 -Optilok 8x12 1 Right -Tubular Bandage Single Layer Single Layer -Size of Tubigrip Used Size E Size E -Size D ($) -Size E ($) 1 1 -Other pt own single layer tubigrip Left -Tubular Bandage Single Layer Single Layer Single Layer -Size of Tubigrip Used Size E Size E Size E -Size D ($) -Size E ($) 1 1 1 Treatment Response Procedure Procedure Procedure Tolerated Well Tolerated Well Tolerated Well Pain Scale: 0-10 Numeric Is Patient Pain Free? Yes Yes Yes Teaching: Wound Center Compression Wraps & Stockings -Person Taught Patient -Teaching Method Discussion, Demonstration -Response to teaching Verbalize understanding WC - Visit Discharge Discharge Condition Stable Stable Stable Ambulatory Status Ambulatory, Ambulatory, Ambulatory, Walker Walker Walker Transportation Private Auto Private Auto Private Auto Medication Reconcilliation completed & No No No provided to patient/care provider Clinical Summary of Care Provided Yes Yes Yes 07/01/23 07/08/23 11:47 12:39 Wound Care Center Nurse 3 #18 Left medial LE cluster -Ulcer Cleansing Rinsed/ Irrigated with Saline -Primary Dressing Applied Aquacel AG 4x4, Optilok 8x12 Optilok 8x12 -Other Dressing aquacel ag -Primary Dressing Covered/Secured with Dry Gauze & Dry Gauze & Roll Gauze, Roll Gauze, Secured with Secured with Tape Tape -Aquacel Extra -Aquacel AG 4x4 2 -Optilok 6.5x10 -Optilok 8x12 1 1 Right -Tubular Bandage Single Layer Single Layer -Size of Tubigrip Used Size E Size D -Size D ($) 2 -Size E ($) 1 -Other Left -Tubular Bandage Single Layer Single Layer -Size of Tubigrip Used Size E Size D -Size D ($) 2 -Size E ($) 1 Treatment Response Procedure Tolerated Well Pain Scale: 0-10 Numeric Is Patient Pain Free? Yes Yes Teaching: Wound Center Compression Wraps & Stockings -Person Taught -Teaching Method -Response to teaching WC - Visit Discharge Discharge Condition Stable Stable Ambulatory Status Ambulatory, Ambulatory, Walker Walker Transportation Private Auto Private Auto Medication Reconcilliation completed & No No provided to patient/care provider Clinical Summary of Care Provided Yes Yes Assessment/Plan Assessment/Plan (1) Ulcer of left lower extremity with fat layer exposed: CODE(S): L97.922 - Non-pressure chronic ulcer of unspecified part of left lower leg with fat layer exposed (2) Venous insufficiency: CODE(S): I87.2 - Venous insufficiency (chronic) (peripheral) (3) Edema: CODE(S): R60.9 - Edema, unspecified QUALIFIERS: Edema type: unspecified Qualified Code(s): R60.9 - Edema, unspecified (4) History of CVA (cerebrovascular accident): CODE(S): Z86.73 - Personal history of transient ischemic attack (TIA), and cerebral infarction without residual deficits (5) 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 At home wound-care instructions: Will apply Aquacel Ag to the wound bed. Will cover with super absorber and KATE bandage changed daily for heavy drainage. Consider Dakins. Will plan to assess and repeat culture in 1-2 weeks after using Aquacel Ag before deciding on Dakins or antibiotic treatment. Off-loading: The patient was instructed to avoid pressure and friction on the affected areas. Reposition every 2 hours at minimum. Avoid prolonged standing and/or dangling of legs. When seated, feet should be elevated at chest level. Frequent ambulation is encouraged. Encouraged lymphedema pump use. Diet: Patient encouraged to increase protein intake while taking caution to avoid high carbohydrate and/or sugar intake. Labs/cultures/imaging: Wound culture showed 1+ Pseudomonas that is sensitive to antibiotics. Follow-up: Return in 1 week for wound care follow up and have secondary dressing changed by home health Tuesday and Tuesday. Return sooner or report to the emergency room should symptoms worsen, or new symptoms arise. Note: [employer] speech recognition sausage stuffer software was used to create portions of this document. Sound-alike and misspelled words, as well as other sausage stuffer errors may be contained in the documentation.
== END 2023-07-09 23:59 | disposition home or self-care (01) ==
LOC: WC 10:00
PROVIDERS: PCP Family Medicine; Referring Provider Family Medicine; Visit Provider Family Medicine
DX: I83.029 Varicose veins of left lower extremity with ulcer of unspecified site (principal); L97.922 Non-pressure chronic ulcer of unspecified part of left lower leg with fat layer exposed; M79.605 Pain in left leg; B96.5 Pseudomonas (aeruginosa) (mallei) (pseudomallei) as the cause of diseases classified elsewhere; M79.10 Myalgia, unspecified site; R60.9 Edema, unspecified; I89.0 Lymphedema, not elsewhere classified; Z86.73 Personal history of transient ischemic attack (TIA), and cerebral infarction without residual deficits; I87.2 Venous insufficiency (chronic) (peripheral)
CPT/HCPCS: 11042; 11045; 15271; 15272; 87070; 87075; 87077; 87186; 87205; Q4186

== ENCOUNTER 2023-08-05 09:30 | Outpatient (RCR) | payer MEDICARE, OTHER, SELFPAY ==
[2023-07-10 00:22] VITALS: BP 109/61; PULSE 60; RESP 18; TEMP 36.1
[2023-07-15 10:10] VITALS: BP 113/65; PULSE 68; RESP 16; TEMP 35.8
--- NOTE | 2023-07-15 14:58 | PN.PCM_ITS ---
History of Present Illness Date of Service: 07/15/23 Chief Complaint: venous ulcers of left lower extremity History of Wound: Mauricio is a 67 yo gentleman who is here today for evaluation of ulcers to to his bilateral lower legs. He has been treated multiple times in the past at the wound healing center for similar ulcers. The left LE ulcer started after he developed increased swelling and blisters of left leg in October and the right leg started sometime at the end of October. He was seen at PCP's office a culture was taken and it was resistant to several antibiotics. He was treated initially with Levaquin but had myalgias and then was treated with doxycycline which he finished 2 days ago. He denies improvement and is having swelling to his left calf and thigh. He has been having swelling to both lower extremities for many years and it has worsened over the last few months. He has not been compliant with compression. He has had increased pain especially in the left leg. He has clear yellow drainage and redness without odor or warmth. He is anti- coagulated on coumadin. He has been washing with Dial soap and witch ifrah. He had been using Collagen at times and using Calcium Alginate and covering with ABD pads during October. He was treated with 3M compression and Aquacel Ag. He was referred to the wound center for ongoing treatment. His ulcers have moderate to heavy drainage. He was recently hospitalized for cellulitis and edema for the last 10 days. He was in the hospital from 11/30/22 until 12/09/22 for treatment of cellulitis and edema. He underwent treatment with Vancomycin and IV lasix and compression. Discharged on 12/09/22 and is currently in the Skilled section of [facility]. He returned to his assisted living apartment on Tuesday12/21/22. Subjective Subjective Ulcers are relatively unchanged but seem to be decreasing in size through islands between ulcers. Edema is still worse today. He did use pumps. He has had increased pain. Denies fever, chills, or increased drainage. Wound culture was positive for Pseudomonas. Objective Data Objective Data Vital Signs: Vital Signs Temp Pulse Resp BP O2 Del Method 96.4 F L 68 16 113/65 Room Air 07/15/23 10:10 07/15/23 10:10 07/15/23 10:10 07/15/23 10:10 07/15/23 10:10 Oxygen Delivery Method Room Air Physical Exam Const alert, oriented x3 and no apparent distress General Appearance: cooperative and comfortable HEENT normocephalic and head/scalp atraumatic Lymph Lymphatic: lymphedema moderate Resp normal respiratory effort Effort and Inspection: able to speak in complete sentences Cardio regular rate and regular rhythm Extremity General Extremity: edema bilateral lower extremity Details: severe Skin Wounds: wounds noted Wound Narrative: as in clinical panel Psych mental status grossly normal, thought process normal, cooperative and affect normal Debridement Note Debridement Note Wound debrided: left medial LE cluster Laterality: Left Type of Debridement: Excisional debridement Anesthesia Used: 4% Lidocaine Solution and 5% Lidocaine Gel Depth: Down to and including healthy tissue and in the subcutaneous layer Percentage of wound debrided: 100 Instrument Used: - (misonix ultrasonic debridement) Tissue Removed: Yellow slough, devitalized tissue Severity: Fat Layer Exposed Amount of bleeding with debridement: Mild Bleeding Controlled with: Compression and gauze Patient tolerated procedure: Patient tolerated procedure well Post-Debridement Measurements and Additional Note: Post-Debridement Measurements/Treatment - Nurse 1 - General Ulcer Assessment Start: 07/15/23 10:10 Freq: Status: Active Protocol: ONDINA Activity Type Activity Date Activity User E-sign Co-sign Detail Recorded Client Recorded Date Recorded By Document 07/15/23 10:10 MW Desktop 07/15/23 10:12 MW 07/15/23 10:10 - Today's Visit Information Type of service 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 ) Arrival Mode Ambulatory Transfer Assistance None Accompanied by self Patient Identification Verified (Name & Yes ) Patient Requires Transmission-Based No Precautions Vital Signs Temperature (97.8 F-99.1 F) 96.4 F L Temperature Source Temporal Pulse Rate (60-100) 68 Pulse Location Monitor Respiratory Rate (12-18) 16 Respiratory rate source Observation Oxygen Delivery Method Room Air Blood Pressure (90/60-120/80) 113/65 Blood Pressure Mean (mm Hg) 81 Source Monitor Position Sitting Blood Pressure Location Left Arm History Since Last Visit- (Skip if this is Patient's initial visit) Have you changed medications since your No last visit? Any new allergies or adverse reactions No Had a fall/change in ADL's that may No increase risk of falls Signs or symptoms of abuse and/or No neglect since last visit Have you been in the hospital since your No last visit? Has dressing in place as prescribed Yes Has compression in place as prescribed Yes Has offloadiing in place as prescribed N/A Experienced any changes in pain level or No management Left Footwear Regular Shoe Right Footwear Regular Shoe Pain Scale: 0-10 Numeric Is Patient Pain Free? Yes Teaching: Wound Center Dressing Your Wound -Person Taught Patient -Teaching Method Discussion -Response to teaching Verbalize understanding DEBBIE - Nurse 1 - General Ulcer Measurement Start: 07/15/23 10:10 Freq: Status: Active Protocol: Activity Type Activity Date Activity User E-sign Co-sign Detail Recorded Client Recorded Date Recorded By Document 07/15/23 10:10 MW Desktop 07/15/23 10:12 MW 07/15/23 10:10 Wound Center Nurse 1 #18 Left medial LE cluster -Combined with other wound No -Current Size (cm) - Length 12.0 -Current Size (cm) - Width 19.0 -Current Size (cm) - Depth 0.3 -Total Square Cm 228.00 -Photo Taken No -Epithelialization None Present -Tunneling No -Undermining/Tunneling No -Circular Undermining No -Exudate Amt Large -Exudate Type Serosanguineous -Wound Margin Distinct, Outline Attached -Granulation Amt Large (67-100%) -Granulation Quality [place] -Slough/Fibrin Yes -Necrosis Amt Small (1-33%) -Necrotic Tissue Type Adherent Slough -Structure Exposed N/A -Texture (Marie-wound Skin Appearance) Assessed, Localized Edema ,Scarring -Moisture (Marie-wound Skin Appearance) Assessed, Maceration -Color (Marie-wound Skin Appearance) Assessed, Hemosiderin Staining -Temperature (Marie-wound Skin No Abnormality Appearance) (Pt Warm) -Tenderness on Palpation (Marie-wound No Skin Appearance) -Ulcer Cleansing Soap and Water -Foul Odor after Cleansing No -Anesthetic Used 4% Lidocaine Solution,5% Lidocaine Gel Lower Limb Edema Present Yes Left Calf (cm) 44.8 Left Ankle (cm) 31.0 WC - Nurse 2 - General Ulcer CM Notes Start: 07/15/23 10:10 Freq: Status: Active Protocol: Activity Type Activity Date Activity User E-sign Co-sign Detail Recorded Client Recorded Date Recorded By Document 07/15/23 10:44 GM Desktop 07/15/23 10:58 GM 07/15/23 10:44 Wound Center Nurse 2 #18 Left medial LE cluster -Time 10:44 -Correct Patient Yes -Correct Side, Site, Position Yes -Correct Procedure Yes -Procedure Performed Yes -Type of Procedure Debridement -Clinical Debridement Subcutaneous -Tissue Removed Subcutaneous -Post Debridement (cm) - Length 12.0 -Post Debridement (cm) - Width 15.0 -Post Debridement (cm) - Depth 0.2 -Total Square (Post) (cm) 180.00 -Area of Debridement (cm) - Length 12.0 -Area of Debridement (cm) - Width 15.0 -Total Square (Area) (cm) 180.00 -Tunneling No -Undermining/Tunneling No -Circular Undermining No -Wound/Ulcer Outcome Not Healed -Ulcer Cleansing Rinsed/ Irrigated with Saline -Foul Odor after Cleansing No -Bioengineered Tissue No -Bleeding Controlled with Pressure -Treatment Response Procedure Tolerated Well -Debridement - Subq, 1st 20sq cm Yes -Debridement, SubQ, ea addt'l 20sq cm 8 or part thereof Pain Scale: 0-10 Numeric Is Patient Pain Free? Yes - Nurse 3 - General Ulcer D/C NN Start: 07/15/23 10:10 Freq: Status: Active Protocol: Activity Type Activity Date Activity User E-sign Co-sign Detail Recorded Client Recorded Date Recorded By Document 07/15/23 11:40 MW Desktop 07/15/23 12:21 MW 07/15/23 11:40 Wound Care Center Nurse 3 #18 Left medial LE cluster -Ulcer Cleansing Rinsed/ Irrigated with Saline -Foul Odor after Cleansing No -Negative Pressure Wound Therapy N/A -Primary Dressing Applied Hysept ($), Optilok 8x12 -Other Dressing Dakins Wet to dry -Primary Dressing Covered/Secured with Dry Gauze & Roll Gauze, Secured with Tape -Optilok 8x12 1 Left -Lotion applied to leg before No compression wrap -Tubular Bandage Double Layer -Size of Tubigrip Used Size E -Size E ($) 2 Treatment Response Procedure Tolerated Well Pain Scale: 0-10 Numeric Is Patient Pain Free? Yes Teaching: Wound Center Control Swelling with Leg Elevation -Person Taught Patient -Teaching Method Discussion, Demonstration -Response to teaching Verbalize understanding WC - Visit Discharge Discharge Condition Stable Ambulatory Status Ambulatory, Walker Transportation Private Auto Accompanied by self Medication Reconcilliation completed & No provided to patient/care provider Clinical Summary of Care Provided Yes Assessment/Plan Assessment/Plan (1) Ulcer of left lower extremity with fat layer exposed: CODE(S): L97.922 - Non-pressure chronic ulcer of unspecified part of left lower leg with fat layer exposed (2) Venous insufficiency: CODE(S): I87.2 - Venous insufficiency (chronic) (peripheral) (3) Edema: CODE(S): R60.9 - Edema, unspecified QUALIFIERS: Edema type: unspecified Qualified Code(s): R60.9 - Edema, unspecified (4) History of CVA (cerebrovascular accident): CODE(S): Z86.73 - Personal history of transient ischemic attack (TIA), and cerebral infarction without residual deficits (5) 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 At home wound-care instructions: Will apply Dakins wet to dry gauze to ulcers and will cover with super absorber and KATE bandage changed daily for heavy drainage. Off-loading: The patient was instructed to avoid pressure and friction on the affected areas. Reposition every 2 hours at minimum. Avoid prolonged standing and/or dangling of legs. When seated, feet should be elevated at chest level. Frequent ambulation is encouraged. Encouraged lymphedema pump use. Diet: Patient encouraged to increase protein intake while taking caution to avoid high carbohydrate and/or sugar intake. Labs/cultures/imaging: Wound culture showed 1+ Pseudomonas that is sensitive to antibiotics. Follow-up: Return in 1 week for wound care follow up and have secondary dressing changed by home health Tuesday and Tuesday. Return sooner or report to the emergency room should symptoms worsen, or new symptoms arise. Note: [employer] speech recognition continuous loft operator software was used to create portions of this document. Sound-alike and misspelled words, as well as other continuous loft operator errors may be contained in the documentation.
[2023-07-22 11:19] VITALS: BP 135/63; PULSE 66; RESP 18; TEMP 36.3
--- NOTE | 2023-07-22 12:55 | PCM.WC.PN ---
History of Present Illness Date of Service: 07/22/23 Chief Complaint: venous ulcers of left lower extremity History of Wound: Mauricio is a 67 yo gentleman who is here today for evaluation of ulcers to to his bilateral lower legs. He has been treated multiple times in the past at the wound healing center for similar ulcers. The left LE ulcer started after he developed increased swelling and blisters of left leg in October and the right leg started sometime at the end of October. He was seen at PCP's office a culture was taken and it was resistant to several antibiotics. He was treated initially with Levaquin but had myalgias and then was treated with doxycycline which he finished 2 days ago. He denies improvement and is having swelling to his left calf and thigh. He has been having swelling to both lower extremities for many years and it has worsened over the last few months. He has not been compliant with compression. He has had increased pain especially in the left leg. He has clear yellow drainage and redness without odor or warmth. He is anti-coagulated on coumadin. He has been washing with Dial soap and witch ifrah. He had been using Collagen at times and using Calcium Alginate and covering with ABD pads during October. He was treated with 3M compression and Aquacel Ag. He was referred to the wound center for ongoing treatment. His ulcers have moderate to heavy drainage. He was recently hospitalized for cellulitis and edema for the last 10 days. He was in the hospital from 11/30/22 until 12/09/22 for treatment of cellulitis and edema. He underwent treatment with Vancomycin and IV lasix and compression. Discharged on 12/09/22 and is currently in the Skilled section of [facility]. He returned to his assisted living apartment on Tuesday12/21/22. Subjective Subjective Ulcers are relatively unchanged but seem to be decreasing in size through islands between ulcers. Edema is still fairly uncontrolled today. He did use pumps. He has had less pain. Denies fever, chills, or increased drainage. Wound culture was positive for Pseudomonas. Objective Data Objective Data Vital Signs: Vital Signs Temp Pulse Resp BP O2 Del Method 97.4 F L 66 18 135/63 H Room Air 07/22/23 11:19 07/22/23 11:19 07/22/23 11:19 07/22/23 11:19 07/22/23 11:19 Oxygen Delivery Method Room Air Physical Exam Const alert, oriented x3 and no apparent distress General Appearance: cooperative and comfortable HEENT normocephalic and head/scalp atraumatic Lymph Lymphatic: lymphedema moderate Resp normal respiratory effort Effort and Inspection: able to speak in complete sentences Cardio regular rate and regular rhythm Extremity General Extremity: edema bilateral lower extremity Details: severe Skin Wounds: wounds noted Wound Narrative: as in clinical panel Psych mental status grossly normal, thought process normal, cooperative and affect normal Debridement Note Debridement Note Wound debrided: left medial LE cluster Laterality: Left Type of Debridement: Excisional debridement Anesthesia Used: 4% Lidocaine Solution and 5% Lidocaine Gel Depth: Down to and including healthy tissue and in the subcutaneous layer Percentage of wound debrided: 100 Instrument Used: - (misonix ultrasonic debridement) Tissue Removed: Yellow slough, devitalized tissue Severity: Fat Layer Exposed Amount of bleeding with debridement: Mild Bleeding Controlled with: Compression and gauze Patient tolerated procedure: Patient tolerated procedure well Post-Debridement Measurements and Additional Note: Post-Debridement Measurements/Treatment - Nurse 1 - General Ulcer Assessment Start: 07/15/23 10:10 Freq: Status: Active Protocol: [email or web address] Activity Type Activity Date Activity User E-sign Co-sign Detail Recorded Client Recorded Date Recorded By Document 07/15/23 10:10 MW Desktop 07/15/23 10:12 MW Document 07/22/23 11:19 MT Desktop 07/22/23 11:35 MT 07/15/23 07/22/23 10:10 11:19 - Today's Visit Information Type of service Follow-up Visit Follow-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 ) ) Arrival Mode Ambulatory Ambulatory, Walker Transfer Assistance None Accompanied by self self Patient Identification Verified (Name & Yes Yes ) Patient Requires Transmission-Based No Precautions Safety Precautions Fall Prevention Vital Signs Temperature (97.8 F-99.1 F) 96.4 F L 97.4 F L Temperature Source Temporal Temporal Pulse Rate (60-100) 68 66 Pulse Location Monitor Monitor Respiratory Rate (12-18) 16 18 Respiratory rate source Observation Observation Oxygen Delivery Method Room Air Room Air Blood Pressure (90/60-120/80) 113/65 135/63 H Blood Pressure Mean (mm Hg) 81 87 Source Monitor Monitor Position Sitting Sitting Blood Pressure Location Left Arm Right Arm History Since Last Visit- (Skip if this is Patient's initial visit) Have you changed medications since your No last visit? Any new allergies or adverse reactions No Had a fall/change in ADL's that may No increase risk of falls Signs or symptoms of abuse and/or No neglect since last visit Have you been in the hospital since your No No last visit? Has dressing in place as prescribed Yes Yes Has compression in place as prescribed Yes Yes Has offloadiing in place as prescribed N/A N/A Experienced any changes in pain level or No No management Left Footwear Regular Shoe Regular Shoe Right Footwear Regular Shoe Regular Shoe Pain Scale: 0-10 Numeric Is Patient Pain Free? Yes Yes Teaching: Wound Center Dressing Your Wound -Person Taught Patient -Teaching Method Discussion -Response to teaching Verbalize understanding WC - Nurse 1 - General Ulcer Measurement Start: 07/15/23 10:10 Freq: Status: Active Protocol: Activity Type Activity Date Activity User E-sign Co-sign Detail Recorded Client Recorded Date Recorded By Document 07/15/23 10:10 MW Desktop 07/15/23 10:12 MW Document 07/22/23 11:19 MT Desktop 07/22/23 11:35 MT Edit Result 07/22/23 11:19 MT (1) Desktop 07/22/23 12:32 MT (1) Left Calf (cm) 46 => 45 07/15/23 07/22/23 10:10 11:19 Wound Center Nurse 1 #18 Left medial LE cluster -Combined with other wound No -Current Size (cm) - Length 12.0 23 -Current Size (cm) - Width 19.0 10.5 -Current Size (cm) - Depth 0.3 0.1 -Total Square Cm 228.00 241.5 -Photo Taken No -Epithelialization None Present -Tunneling No No -Undermining/Tunneling No No -Circular Undermining No No -Exudate Amt Large Medium -Exudate Type Serosanguineous Serous -Wound Margin Distinct, Flat & Intact Outline Attached -Granulation Amt Large (67-100%) Medium (34-66%) -Granulation Quality [place] -Slough/Fibrin Yes -Necrosis Amt Small (1-33%) Medium (34-66%) -Necrotic Tissue Type Adherent Slough Adherent Slough -Structure Exposed N/A -Texture (Marie-wound Skin Appearance) Assessed, Assessed, Localized Edema Localized Edema ,Scarring -Moisture (Marie-wound Skin Appearance) Assessed, Assessed Maceration -Color (Marie-wound Skin Appearance) Assessed, Assessed, Hemosiderin Erythema, Staining Hemosiderin Staining -Temperature (Marie-wound Skin No Abnormality No Abnormality Appearance) (Pt Warm) (Pt Warm) -Tenderness on Palpation (Marie-wound No No Skin Appearance) -Ulcer Cleansing Soap and Water Soap and Water -Foul Odor after Cleansing No No -Anesthetic Used 4% Lidocaine 5% Lidocaine Solution,5% Gel Lidocaine Gel Lower Limb Edema Present Yes Left Calf (cm) 44.8 45 Left Ankle (cm) 31.0 32 WC - Nurse 2 - General Ulcer CM Notes Start: 07/15/23 10:10 Freq: Status: Active Protocol: Activity Type Activity Date Activity User E-sign Co-sign Detail Recorded Client Recorded Date Recorded By Document 07/15/23 10:44 GM Desktop 07/15/23 10:58 GM Document 07/22/23 11:42 GM Desktop 07/22/23 12:06 GM 07/15/23 07/22/23 10:44 11:42 Wound Center Nurse 2 #18 Left medial LE cluster -Time 10:44 11:42 -Correct Patient Yes Yes -Correct Side, Site, Position Yes Yes -Correct Procedure Yes Yes -Procedure Performed Yes Yes -Type of Procedure Debridement Debridement -Clinical Debridement Subcutaneous Subcutaneous -Tissue Removed Subcutaneous Subcutaneous -Post Debridement (cm) - Length 12.0 11.8 -Post Debridement (cm) - Width 15.0 17 -Post Debridement (cm) - Depth 0.2 0.2 -Total Square (Post) (cm) 180.00 200.6 -Area of Debridement (cm) - Length 12.0 11.8 -Area of Debridement (cm) - Width 15.0 17 -Total Square (Area) (cm) 180.00 200.6 -Tunneling No No -Undermining/Tunneling No No -Circular Undermining No No -Wound/Ulcer Outcome Not Healed Not Healed -Ulcer Cleansing Rinsed/ Rinsed/ Irrigated with Irrigated with Saline Saline -Foul Odor after Cleansing No No -Bioengineered Tissue No No -Bleeding Controlled with Pressure Pressure -Treatment Response Procedure Procedure Tolerated Well Tolerated Well -Debridement - Subq, 1st 20sq cm Yes Yes -Debridement, SubQ, ea addt'l 20sq cm 8 10 or part thereof Pain Scale: 0-10 Numeric Is Patient Pain Free? Yes Yes - Nurse 3 - General Ulcer D/C NN Start: 07/15/23 10:10 Freq: Status: Active Protocol: Activity Type Activity Date Activity User E-sign Co-sign Detail Recorded Client Recorded Date Recorded By Document 07/15/23 11:40 MW Desktop 07/15/23 12:21 MW Document 07/22/23 12:39 MT Desktop 07/22/23 12:40 MT 07/15/23 07/22/23 11:40 12:39 Wound Care Center Nurse 3 #18 Left medial LE cluster -Ulcer Cleansing Rinsed/ Soap and Water Irrigated with Saline -Foul Odor after Cleansing No -Negative Pressure Wound Therapy N/A -Primary Dressing Applied Hysept ($), Optilok 8x12 Optilok 8x12 -Other Dressing Dakins Wet to dakins wet to dry dry -Primary Dressing Covered/Secured with Dry Gauze & Dry Gauze & Roll Gauze, Roll Gauze, Secured with Secured with Tape Tape -Optilok 8x12 1 1 Left -Lotion applied to leg before No compression wrap -Tubular Bandage Double Layer -Size of Tubigrip Used Size E -Size E ($) 2 Treatment Response Procedure Tolerated Well Pain Scale: 0-10 Numeric Is Patient Pain Free? Yes Yes Teaching: Wound Center Control Swelling with Leg Elevation -Person Taught Patient -Teaching Method Discussion, Demonstration -Response to teaching Verbalize understanding WC - Visit Discharge Discharge Condition Stable Stable Ambulatory Status Ambulatory, Ambulatory, Walker Walker Transportation Private Auto Private Auto Accompanied by self Medication Reconcilliation completed & No No provided to patient/care provider Clinical Summary of Care Provided Yes Yes Assessment/Plan Assessment/Plan (1) Ulcer of left lower extremity with fat layer exposed: CODE(S): L97.922 - Non-pressure chronic ulcer of unspecified part of left lower leg with fat layer exposed (2) Venous insufficiency: CODE(S): I87.2 - Venous insufficiency (chronic) (peripheral) (3) Edema: CODE(S): R60.9 - Edema, unspecified QUALIFIERS: Edema type: unspecified Qualified Code(s): R60.9 - Edema, unspecified (4) History of CVA (cerebrovascular accident): CODE(S): Z86.73 - Personal history of transient ischemic attack (TIA), and cerebral infarction without residual deficits (5) 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 At home wound-care instructions: Will apply Dakins wet to dry gauze to ulcers and will cover with super absorber and KATE bandage changed daily for heavy drainage. Off-loading: The patient was instructed to avoid pressure and friction on the affected areas. Reposition every 2 hours at minimum. Avoid prolonged standing and/or dangling of legs. When seated, feet should be elevated at chest level. Frequent ambulation is encouraged. Encouraged lymphedema pump use. Diet: Patient encouraged to increase protein intake while taking caution to avoid high carbohydrate and/or sugar intake. Labs/cultures/imaging: Wound culture showed 1+ Pseudomonas that is sensitive to antibiotics. Follow-up: Return in 1 week for wound care follow up and have secondary dressing changed by home health Tuesday and Tuesday. Return sooner or report to the emergency room should symptoms worsen, or new symptoms arise. Note: [employer] speech recognition principal technical writer software was used to create portions of this document. Sound-alike and misspelled words, as well as other principal technical writer errors may be contained in the documentation.
[2023-07-29 11:12] VITALS: BP 107/64; PULSE 70; RESP 18; TEMP 36.2
--- NOTE | 2023-07-29 15:32 | PN.PCM_ITS ---
History of Present Illness Date of Service: 07/29/23 Chief Complaint: venous ulcers of left lower extremity History of Wound: Mauricio is a 67 yo gentleman who is here today for evaluation of ulcers to to his bilateral lower legs. He has been treated multiple times in the past at the wound healing center for similar ulcers. The left LE ulcer started after he developed increased swelling and blisters of left leg in October and the right leg started sometime at the end of October. He was seen at PCP's office a culture was taken and it was resistant to several antibiotics. He was treated initially with Levaquin but had myalgias and then was treated with doxycycline which he finished 2 days ago. He denies improvement and is having swelling to his left calf and thigh. He has been having swelling to both lower extremities for many years and it has worsened over the last few months. He has not been compliant with compression. He has had increased pain especially in the left leg. He has clear yellow drainage and redness without odor or warmth. He is anti- coagulated on coumadin. He has been washing with Dial soap and witch ifrah. He had been using Collagen at times and using Calcium Alginate and covering with ABD pads during October. He was treated with 3M compression and Aquacel Ag. He was referred to the wound center for ongoing treatment. His ulcers have moderate to heavy drainage. He was recently hospitalized for cellulitis and edema for the last 10 days. He was in the hospital from 11/30/22 until 12/09/22 for treatment of cellulitis and edema. He underwent treatment with Vancomycin and IV lasix and compression. Discharged on 12/09/22 and is [facility] in [facility] He returned to his assisted living apartment on Tuesday12/21/22. Subjective Subjective Ulcers are relatively unchanged but seem to be decreasing in size through islands between ulcers. Edema is still fairly uncontrolled today. He did use pumps. He has had less pain. Denies fever, chills, or increased drainage. Wound culture was positive for Pseudomonas. Objective Data Objective Data Vital Signs: Vital Signs Temp Pulse Resp BP O2 Del Method 97.2 F L 70 18 107/64 Room Air 07/29/23 11:12 07/29/23 11:12 07/29/23 11:12 07/29/23 11:12 07/29/23 11:12 Oxygen Delivery Method Room Air Physical Exam Const alert, oriented x3 and no apparent distress General Appearance: cooperative and comfortable HEENT normocephalic and head/scalp atraumatic Lymph Lymphatic: lymphedema moderate Resp normal respiratory effort Effort and Inspection: able to speak in complete sentences Cardio regular rate and regular rhythm Extremity General Extremity: edema bilateral lower extremity Details: severe Skin Wounds: wounds noted Wound Narrative: as in clinical panel Psych mental status grossly normal, thought process normal, cooperative and affect normal Debridement Note Debridement Note Wound debrided: left medial LE cluster Laterality: Left Type of Debridement: Excisional debridement Anesthesia Used: 4% Lidocaine Solution and 5% Lidocaine Gel Depth: Down to and including healthy tissue and in the subcutaneous layer Percentage of wound debrided: 100 Instrument Used: - (misonix ultrasonic debridement) Tissue Removed: Yellow slough, devitalized tissue Severity: Fat Layer Exposed Amount of bleeding with debridement: Mild Bleeding Controlled with: Compression and gauze Patient tolerated procedure: Patient tolerated procedure well Post-Debridement Measurements and Additional Note: Post-Debridement Measurements/Treatment - Nurse 1 - General Ulcer Assessment Start: 07/15/23 10:10 Freq: Status: Active Protocol: [email or web address] Activity Type Activity Date Activity User E-sign Co-sign Detail Recorded Client Recorded Date Recorded By Document 07/15/23 10:10 MW Desktop 07/15/23 10:12 MW Document 07/22/23 11:19 MT Desktop 07/22/23 11:35 MT Document 07/29/23 11:12 MW Desktop 07/29/23 11:16 MW 07/15/23 07/22/23 07/29/23 10:10 11:19 11:12 - Today's Visit Information Type of service Follow-up Visit Follow-up Visit Follow-up Visit (Physician/OUT OF TOWN COLLECTION CLERK (Physician/OUT OF TOWN COLLECTION CLERK (Physician/OUT OF TOWN COLLECTION CLERK ) ) ) Arrival Mode Ambulatory Ambulatory, Ambulatory Walker Transfer Assistance None None Accompanied by self self self Patient Identification Verified (Name & Yes Yes Yes ) Patient Requires Transmission-Based No No Precautions Safety Precautions Fall Prevention NA Vital Signs Temperature (97.8 F-99.1 F) 96.4 F L 97.4 F L 97.2 F L Temperature Source Temporal Temporal Temporal Pulse Rate (60-100) 68 66 70 Pulse Location Monitor Monitor Monitor Respiratory Rate (12-18) 16 18 18 Respiratory rate source Observation Observation Observation Oxygen Delivery Method Room Air Room Air Room Air Blood Pressure (90/60-120/80) 113/65 135/63 H 107/64 Blood Pressure Mean (mm Hg) 81 87 78 Source Monitor Monitor Monitor Position Sitting Sitting Sitting Blood Pressure Location Left Arm Right Arm Right Arm History Since Last Visit- (Skip if this is Patient's initial visit) Have you changed medications since your No No last visit? Any new allergies or adverse reactions No No Had a fall/change in ADL's that may No No increase risk of falls Signs or symptoms of abuse and/or No No neglect since last visit Have you been in the hospital since your No No No last visit? Has dressing in place as prescribed Yes Yes Yes Has compression in place as prescribed Yes Yes Yes Has offloadiing in place as prescribed N/A N/A N/A Experienced any changes in pain level or No No No management Left Footwear Regular Shoe Regular Shoe Regular Shoe Right Footwear Regular Shoe Regular Shoe Regular Shoe Pain Scale: 0-10 Numeric Is Patient Pain Free? Yes Yes No Left medial LE -Description Burning -Intensity 6 -Duration (hours) Acute -Pain Behavior No Change in Behavior -Pain Aggravating Factors Walking, Debridement -Alleviating Factors/Interventions None -Effectiveness of Alleviating Factor/ Moderately Intervention effective -Comments Takes pain medication when due Teaching: Wound Center Dressing Your Wound -Person Taught Patient -Teaching Method Discussion -Response to teaching Verbalize understanding WC - Nurse 1 - General Ulcer Measurement Start: 07/15/23 10:10 Freq: Status: Active Protocol: Activity Type Activity Date Activity User E-sign Co-sign Detail Recorded Client Recorded Date Recorded By Document 07/15/23 10:10 MW Desktop 07/15/23 10:12 MW Document 07/22/23 11:19 MT Desktop 07/22/23 11:35 MT Edit Result 07/22/23 11:19 MT (1) Desktop 07/22/23 12:32 MT Document 07/29/23 11:12 MW Desktop 07/29/23 11:16 MW (1) Left Calf (cm) 46 => 45 07/15/23 07/22/23 07/29/23 10:10 11:19 11:12 Wound Center Nurse 1 #18 Left medial LE cluster -Combined with other wound No No -Current Size (cm) - Length 12.0 23 10.5 -Current Size (cm) - Width 19.0 10.5 18.0 -Current Size (cm) - Depth 0.3 0.1 0.3 -Total Square Cm 228.00 241.5 189.00 -Photo Taken No No -Epithelialization None Present None Present -Tunneling No No No -Undermining/Tunneling No No No -Circular Undermining No No No -Exudate Amt Large Medium Large -Exudate Type Serosanguineous Serous Serosanguineous -Wound Margin Distinct, Flat & Intact Distinct, Outline Outline Attached Attached -Granulation Amt Large (67-100%) Medium (34-66%) Large (67-100%) -Granulation Quality Mcdowell Pale,Mcdowell Mcdowell -Slough/Fibrin Yes Yes -Necrosis Amt Small (1-33%) Medium (34-66%) Small (1-33%) -Necrotic Tissue Type Adherent Slough Adherent Slough Adherent Slough -Structure Exposed N/A N/A -Texture (Marie-wound Skin Appearance) Assessed, Assessed, Assessed, Localized Edema Localized Edema Localized Edema ,Scarring ,Scarring -Moisture (Marie-wound Skin Appearance) Assessed, Assessed Assessed Maceration -Color (Marie-wound Skin Appearance) Assessed, Assessed, Assessed, Hemosiderin Erythema, Hemosiderin Staining Hemosiderin Staining Staining -Temperature (Marie-wound Skin No Abnormality No Abnormality No Abnormality Appearance) (Pt Warm) (Pt Warm) (Pt Warm) -Tenderness on Palpation (Marie-wound No No Yes Skin Appearance) -Ulcer Cleansing Soap and Water Soap and Water Soap and Water -Foul Odor after Cleansing No No No -Anesthetic Used 4% Lidocaine 5% Lidocaine 5% Lidocaine Solution,5% Gel Gel Lidocaine Gel Lower Limb Edema Present Yes Yes Left Calf (cm) 44.8 45 46.5 Left Ankle (cm) 31.0 32 32.5 WC - Nurse 2 - General Ulcer CM Notes Start: 07/15/23 10:10 Freq: Status: Active Protocol: Activity Type Activity Date Activity User E-sign Co-sign Detail Recorded Client Recorded Date Recorded By Document 07/15/23 10:44 GM Desktop 07/15/23 10:58 GM Document 07/22/23 11:42 GM Desktop 07/22/23 12:06 GM Document 07/29/23 11:37 GM Desktop 10/20/23 11:53 GM 07/15/23 07/22/23 07/29/23 10:44 11:42 11:37 Wound Center Nurse 2 #18 Left medial LE cluster -Time 10:44 11:42 11:38 -Correct Patient Yes Yes Yes -Correct Side, Site, Position Yes Yes Yes -Correct Procedure Yes Yes Yes -Procedure Performed Yes Yes Yes -Type of Procedure Debridement Debridement Debridement -Clinical Debridement Subcutaneous Subcutaneous Subcutaneous -Tissue Removed Subcutaneous Subcutaneous Subcutaneous -Post Debridement (cm) - Length 12.0 11.8 11 -Post Debridement (cm) - Width 15.0 17 17 -Post Debridement (cm) - Depth 0.2 0.2 0.2 -Total Square (Post) (cm) 180.00 200.6 187 -Area of Debridement (cm) - Length 12.0 11.8 11 -Area of Debridement (cm) - Width 15.0 17 17 -Total Square (Area) (cm) 180.00 200.6 187 -Tunneling No No No -Undermining/Tunneling No No No -Circular Undermining No No No -Wound/Ulcer Outcome Not Healed Not Healed Not Healed -Ulcer Cleansing Rinsed/ Rinsed/ Rinsed/ Irrigated with Irrigated with Irrigated with Saline Saline Saline -Foul Odor after Cleansing No No No -Bioengineered Tissue No No No -Bleeding Controlled with Pressure Pressure Pressure -Treatment Response Procedure Procedure Procedure Tolerated Well Tolerated Well Tolerated Well -Debridement - Subq, 1st 20sq cm Yes Yes Yes -Debridement, SubQ, ea addt'l 20sq cm 8 10 9 or part thereof Pain Scale: 0-10 Numeric Is Patient Pain Free? Yes Yes Yes WC - Nurse 3 - General Ulcer D/C NN Start: 07/15/23 10:10 Freq: Status: Active Protocol: Activity Type Activity Date Activity User E-sign Co-sign Detail Recorded Client Recorded Date Recorded By Document 07/15/23 11:40 MW Desktop 07/15/23 12:21 MW Document 07/22/23 12:39 MT Desktop 07/22/23 12:40 MT 07/15/23 07/22/23 11:40 12:39 Wound Care Center Nurse 3 #18 Left medial LE cluster -Ulcer Cleansing Rinsed/ Soap and Water Irrigated with Saline -Foul Odor after Cleansing No -Negative Pressure Wound Therapy N/A -Primary Dressing Applied Hysept ($), Optilok 8x12 Optilok 8x12 -Other Dressing Dakins Wet to dakins wet to dry dry -Primary Dressing Covered/Secured with Dry Gauze & Dry Gauze & Roll Gauze, Roll Gauze, Secured with Secured with Tape Tape -Optilok 8x12 1 1 Left -Lotion applied to leg before No compression wrap -Tubular Bandage Double Layer -Size of Tubigrip Used Size E -Size E ($) 2 Treatment Response Procedure Tolerated Well Pain Scale: 0-10 Numeric Is Patient Pain Free? Yes Yes Teaching: Wound Center Control Swelling with Leg Elevation -Person Taught Patient -Teaching Method Discussion, Demonstration -Response to teaching Verbalize understanding WC - Visit Discharge Discharge Condition Stable Stable Ambulatory Status Ambulatory, Ambulatory, Walker Walker Transportation Private Auto Private Auto Accompanied by self Medication Reconcilliation completed & No No provided to patient/care provider Clinical Summary of Care Provided Yes Yes Assessment/Plan Assessment/Plan (1) Ulcer of left lower extremity with fat layer exposed: CODE(S): L97.922 - Non-pressure chronic ulcer of unspecified part of left lower leg with fat layer exposed (2) Venous insufficiency: CODE(S): I87.2 - Venous insufficiency (chronic) (peripheral) (3) Edema: CODE(S): R60.9 - Edema, unspecified QUALIFIERS: Edema type: unspecified Qualified Code(s): R60.9 - Edema, unspecified (4) History of CVA (cerebrovascular accident): CODE(S): Z86.73 - Personal history of transient ischemic attack (TIA), and cerebral infarction without residual deficits (5) 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 At home wound-care instructions: Will apply Dakins wet to dry gauze to ulcers and will cover with super absorber and KATE bandage changed daily for heavy drainage. Off-loading: The patient was instructed to avoid pressure and friction on the affected areas. Reposition every 2 hours at minimum. Avoid prolonged standing and/or dangling of legs. When seated, feet should be elevated at chest level. Frequent ambulation is encouraged. Encouraged lymphedema pump use. Diet: Patient encouraged to increase protein intake while taking caution to avoid high carbohydrate and/or sugar intake. Labs/cultures/imaging: Wound culture showed 1+ Pseudomonas that is sensitive to antibiotics. Follow-up: Return in 1 week for wound care follow up and have secondary dressing changed by home health Tuesday and Tuesday. Return sooner or report to the emergency room should symptoms worsen, or new symptoms arise. Note: [employer] speech recognition traffic signal repairer software was used to create portions of this document. Sound-alike and misspelled words, as well as other traffic signal repairer errors may be contained in the documentation.
[2023-08-05 09:39] VITALS: BP 101/64; PULSE 75; RESP 18; TEMP 35.3
--- NOTE | 2023-08-05 14:01 | PCM.WC.PN ---
History of Present Illness Date of Service: 08/05/23 Chief Complaint: venous ulcers of left lower extremity History of Wound: Mauricio is a 67 yo gentleman who is here today for evaluation of ulcers to to his bilateral lower legs. He has been treated multiple times in the past at the wound healing center for similar ulcers. The left LE ulcer started after he developed increased swelling and blisters of left leg in October and the right leg started sometime at the end of October. He was seen at PCP's office a culture was taken and it was resistant to several antibiotics. He was treated initially with Levaquin but had myalgias and then was treated with doxycycline which he finished 2 days ago. He denies improvement and is having swelling to his left calf and thigh. He has been having swelling to both lower extremities for many years and it has worsened over the last few months. He has not been compliant with compression. He has had increased pain especially in the left leg. He has clear yellow drainage and redness without odor or warmth. He is anti-coagulated on coumadin. He has been washing with Dial soap and witch ifrah. He had been using Collagen at times and using Calcium Alginate and covering with ABD pads during October. He was treated with 3M compression and Aquacel Ag. He was referred to the wound center for ongoing treatment. His ulcers have moderate to heavy drainage. He was recently hospitalized for cellulitis and edema for the last 10 days. He was in the hospital from 11/30/22 until 12/09/22 for treatment of cellulitis and edema. He underwent treatment with Vancomycin and IV lasix and compression. Discharged on 12/09/22 and is currently in the Skilled section of [facility]. He returned to his assisted living apartment on Tuesday12/21/22. Subjective Subjective Ulcers are relatively unchanged but seem to be decreasing in size through islands between ulcers. Edema is still fairly uncontrolled today. He did use lymphedema pumps. He has had more pain. Denies fever, chills, or increased drainage. Wound culture was positive for Pseudomonas and he has been tolerating Dakins. Objective Data Objective Data Vital Signs: Vital Signs Temp Pulse Resp BP O2 Del Method 95.5 F L 75 18 101/64 Room Air 08/05/23 09:39 08/05/23 09:39 08/05/23 09:39 08/05/23 09:39 07/29/23 11:12 Oxygen Delivery Method Room Air Physical Exam Const alert, oriented x3 and no apparent distress General Appearance: cooperative and comfortable HEENT normocephalic and head/scalp atraumatic Lymph Lymphatic: lymphedema moderate Resp normal respiratory effort Effort and Inspection: able to speak in complete sentences Cardio regular rate and regular rhythm Extremity General Extremity: edema bilateral lower extremity Details: severe Skin Wounds: wounds noted Wound Narrative: as in clinical panel Psych mental status grossly normal, thought process normal, cooperative and affect normal Debridement Note Debridement Note Wound debrided: left medial LE cluster Laterality: Left Type of Debridement: Excisional debridement Anesthesia Used: 4% Lidocaine Solution and 5% Lidocaine Gel Depth: Down to and including healthy tissue and in the subcutaneous layer Percentage of wound debrided: 100 Instrument Used: - (misonix ultrasonic debridement) Tissue Removed: Yellow slough, devitalized tissue Severity: Fat Layer Exposed Amount of bleeding with debridement: Mild Bleeding Controlled with: Compression and gauze Patient tolerated procedure: Patient tolerated procedure well Post-Debridement Measurements and Additional Note: Post-Debridement Measurements/Treatment - Nurse 1 - General Ulcer Assessment Start: 07/15/23 10:10 Freq: Status: Active Protocol: ONDINA Activity Type Activity Date Activity User E-sign Co-sign Detail Recorded Client Recorded Date Recorded By Document 07/15/23 10:10 MW Desktop 07/15/23 10:12 MW Document 07/22/23 11:19 MT Desktop 07/22/23 11:35 MT Document 07/29/23 11:12 MW Desktop 07/29/23 11:16 MW Document 08/05/23 09:39 RB Desktop 08/05/23 09:51 RB 07/15/23 07/22/23 07/29/23 10:10 11:19 11:12 - Today's Visit Information Type of service Follow-up Visit Follow-up Visit Follow-up Visit (Physician/SHIPPING AND RECEIVING OPERATOR (Physician/SHIPPING AND RECEIVING OPERATOR (Physician/SHIPPING AND RECEIVING OPERATOR ) ) ) Arrival Mode Ambulatory Ambulatory, Ambulatory Walker Transfer Assistance None None Accompanied by self self self Patient Identification Verified (Name & Yes Yes Yes ) Patient Requires Transmission-Based No No Precautions Safety Precautions Fall Prevention NA Vital Signs Temperature (97.8 F-99.1 F) 96.4 F L 97.4 F L 97.2 F L Temperature Source Temporal Temporal Temporal Pulse Rate (60-100) 68 66 70 Pulse Location Monitor Monitor Monitor Respiratory Rate (12-18) 16 18 18 Respiratory rate source Observation Observation Observation Oxygen Delivery Method Room Air Room Air Room Air Blood Pressure (90/60-120/80) 113/65 135/63 H 107/64 Blood Pressure Mean (mm Hg) 81 87 78 Source Monitor Monitor Monitor Position Sitting Sitting Sitting Blood Pressure Location Left Arm Right Arm Right Arm History Since Last Visit- (Skip if this is Patient's initial visit) Have you changed medications since your No No last visit? Any new allergies or adverse reactions No No Had a fall/change in ADL's that may No No increase risk of falls Signs or symptoms of abuse and/or No No neglect since last visit Have you been in the hospital since your No No No last visit? Has dressing in place as prescribed Yes Yes Yes Has compression in place as prescribed Yes Yes Yes Has offloadiing in place as prescribed N/A N/A N/A Experienced any changes in pain level or No No No management Left Footwear Regular Shoe Regular Shoe Regular Shoe Right Footwear Regular Shoe Regular Shoe Regular Shoe Pain Scale: 0-10 Numeric Is Patient Pain Free? Yes Yes No Left medial LE -Description Burning -Intensity 6 -Duration (hours) Acute -Pain Behavior No Change in Behavior -Pain Aggravating Factors Walking, Debridement -Alleviating Factors/Interventions None -Effectiveness of Alleviating Factor/ Moderately Intervention effective -Comments Takes pain medication when due Teaching: Wound Center Dressing Your Wound -Person Taught Patient -Teaching Method Discussion -Response to teaching Verbalize understanding 08/05/23 09:39 WC - Today's Visit Information Type of service Follow-up Visit (Physician/SHIPPING AND RECEIVING OPERATOR ) Arrival Mode Ambulatory, Walker Transfer Assistance None Accompanied by Patient Identification Verified (Name & Yes ) Patient Requires Transmission-Based No Precautions Safety Precautions Vital Signs Temperature (97.8 F-99.1 F) 95.5 F L Temperature Source Temporal Pulse Rate (60-100) 75 Pulse Location Monitor Respiratory Rate (12-18) 18 Respiratory rate source Observation Oxygen Delivery Method Blood Pressure (90/60-120/80) 101/64 Blood Pressure Mean (mm Hg) 76 Source Monitor Position Semi-Fowlers Blood Pressure Location Left Arm History Since Last Visit- (Skip if this is Patient's initial visit) Have you changed medications since your No last visit? Any new allergies or adverse reactions No Had a fall/change in ADL's that may No increase risk of falls Signs or symptoms of abuse and/or No neglect since last visit Have you been in the hospital since your No last visit? Has dressing in place as prescribed Yes Has compression in place as prescribed Yes Has offloadiing in place as prescribed No Experienced any changes in pain level or No management Left Footwear Right Footwear Pain Scale: 0-10 Numeric Is Patient Pain Free? Yes Left medial LE -Description -Intensity -Duration (hours) -Pain Behavior -Pain Aggravating Factors -Alleviating Factors/Interventions -Effectiveness of Alleviating Factor/ Intervention -Comments Teaching: Wound Center Dressing Your Wound -Person Taught -Teaching Method -Response to teaching WC - Nurse 1 - General Ulcer Measurement Start: 07/15/23 10:10 Freq: Status: Active Protocol: Activity Type Activity Date Activity User E-sign Co-sign Detail Recorded Client Recorded Date Recorded By Document 07/15/23 10:10 MW Desktop 07/15/23 10:12 MW Document 07/22/23 11:19 MT Desktop 07/22/23 11:35 MT Edit Result 07/22/23 11:19 MT (1) Desktop 07/22/23 12:32 MT Document 07/29/23 11:12 MW Desktop 07/29/23 11:16 MW Document 08/05/23 09:39 RB Desktop 08/05/23 09:51 RB (1) Left Calf (cm) 46 => 45 07/15/23 07/22/23 07/29/23 10:10 11:19 11:12 Wound Center Nurse 1 #18 Left medial LE cluster -Combined with other wound No No -Current Size (cm) - Length 12.0 23 10.5 -Current Size (cm) - Width 19.0 10.5 18.0 -Current Size (cm) - Depth 0.3 0.1 0.3 -Total Square Cm 228.00 241.5 189.00 -Photo Taken No No -Epithelialization None Present None Present -Tunneling No No No -Undermining/Tunneling No No No -Circular Undermining No No No -Exudate Amt Large Medium Large -Exudate Type Serosanguineous Serous Serosanguineous -Wound Margin Distinct, Flat & Intact Distinct, Outline Outline Attached Attached -Granulation Amt Large (67-100%) Medium (34-66%) Large (67-100%) -Granulation Quality [place] Pale,[place] -Slough/Fibrin Yes Yes -Necrosis Amt Small (1-33%) Medium (34-66%) Small (1-33%) -Necrotic Tissue Type Adherent Slough Adherent Slough Adherent Slough -Structure Exposed N/A N/A -Texture (Marie-wound Skin Appearance) Assessed, Assessed, Assessed, Localized Edema Localized Edema Localized Edema ,Scarring ,Scarring -Moisture (Marie-wound Skin Appearance) Assessed, Assessed Assessed Maceration -Color (Marie-wound Skin Appearance) Assessed, Assessed, Assessed, Hemosiderin Erythema, Hemosiderin Staining Hemosiderin Staining Staining -Temperature (Marie-wound Skin No Abnormality No Abnormality No Abnormality Appearance) (Pt Warm) (Pt Warm) (Pt Warm) -Tenderness on Palpation (Marie-wound No No Yes Skin Appearance) -Ulcer Cleansing Soap and Water Soap and Water Soap and Water -Foul Odor after Cleansing No No No -Anesthetic Used 4% Lidocaine 5% Lidocaine 5% Lidocaine Solution,5% Gel Gel Lidocaine Gel Lower Limb Edema Present Yes Yes Left Calf (cm) 44.8 45 46.5 Left Ankle (cm) 31.0 32 32.5 08/05/23 09:39 Wound Center Nurse 1 #18 Left medial LE cluster -Combined with other wound No -Current Size (cm) - Length 11.7 -Current Size (cm) - Width 24 -Current Size (cm) - Depth 0.4 -Total Square Cm 280.8 -Photo Taken -Epithelialization -Tunneling No -Undermining/Tunneling No -Circular Undermining No -Exudate Amt Large -Exudate Type Serosanguineous -Wound Margin Distinct, Outline Attached -Granulation Amt Medium (34-66%) -Granulation Quality [place] -Slough/Fibrin Yes -Necrosis Amt Medium (34-66%) -Necrotic Tissue Type Adherent Slough -Structure Exposed N/A -Texture (Marie-wound Skin Appearance) Assessed, Excoriation -Moisture (Marie-wound Skin Appearance) Assessed -Color (Marie-wound Skin Appearance) Assessed -Temperature (Marie-wound Skin No Abnormality Appearance) (Pt Warm) -Tenderness on Palpation (Marie-wound Yes Skin Appearance) -Ulcer Cleansing Wound Cleanser -Foul Odor after Cleansing No -Anesthetic Used 5% Lidocaine Gel Lower Limb Edema Present Yes Left Calf (cm) 46 Left Ankle (cm) 32 WC - Nurse 2 - General Ulcer CM Notes Start: 07/15/23 10:10 Freq: Status: Active Protocol: Activity Type Activity Date Activity User E-sign Co-sign Detail Recorded Client Recorded Date Recorded By Document 07/15/23 10:44 GM Desktop 07/15/23 10:58 GM Document 07/22/23 11:42 GM Desktop 07/22/23 12:06 GM Document 07/29/23 11:37 GM Desktop 07/29/23 11:53 GM Document 08/05/23 10:15 GM Desktop 08/05/23 10:32 GM 07/15/23 07/22/23 07/29/23 10:44 11:42 11:37 Wound Center Nurse 2 #18 Left medial LE cluster -Time 10:44 11:42 11:38 -Correct Patient Yes Yes Yes -Correct Side, Site, Position Yes Yes Yes -Correct Procedure Yes Yes Yes -Procedure Performed Yes Yes Yes -Type of Procedure Debridement Debridement Debridement -Clinical Debridement Subcutaneous Subcutaneous Subcutaneous -Tissue Removed Subcutaneous Subcutaneous Subcutaneous -Post Debridement (cm) - Length 12.0 11.8 11 -Post Debridement (cm) - Width 15.0 17 17 -Post Debridement (cm) - Depth 0.2 0.2 0.2 -Total Square (Post) (cm) 180.00 200.6 187 -Area of Debridement (cm) - Length 12.0 11.8 11 -Area of Debridement (cm) - Width 15.0 17 17 -Total Square (Area) (cm) 180.00 200.6 187 -Tunneling No No No -Undermining/Tunneling No No No -Circular Undermining No No No -Wound/Ulcer Outcome Not Healed Not Healed Not Healed -Ulcer Cleansing Rinsed/ Rinsed/ Rinsed/ Irrigated with Irrigated with Irrigated with Saline Saline Saline -Foul Odor after Cleansing No No No -Bioengineered Tissue No No No -Bleeding Controlled with Pressure Pressure Pressure -Treatment Response Procedure Procedure Procedure Tolerated Well Tolerated Well Tolerated Well -Debridement - Subq, 1st 20sq cm Yes Yes Yes -Debridement, SubQ, ea addt'l 20sq cm 8 10 9 or part thereof Pain Scale: 0-10 Numeric Is Patient Pain Free? Yes Yes Yes 08/05/23 10:15 Wound Center Nurse 2 #18 Left medial LE cluster -Time 10:15 -Correct Patient Yes -Correct Side, Site, Position Yes -Correct Procedure Yes -Procedure Performed Yes -Type of Procedure Debridement -Clinical Debridement Subcutaneous -Tissue Removed Subcutaneous -Post Debridement (cm) - Length 12.0 -Post Debridement (cm) - Width 20.0 -Post Debridement (cm) - Depth 0.1 -Total Square (Post) (cm) 240.00 -Area of Debridement (cm) - Length 12.0 -Area of Debridement (cm) - Width 20.0 -Total Square (Area) (cm) 240.00 -Tunneling No -Undermining/Tunneling No -Circular Undermining No -Wound/Ulcer Outcome Not Healed -Ulcer Cleansing Wound Cleanser -Foul Odor after Cleansing No -Bioengineered Tissue No -Bleeding Controlled with Pressure -Treatment Response Procedure Tolerated Well -Debridement - Subq, 1st 20sq cm Yes -Debridement, SubQ, ea addt'l 20sq cm 11 or part thereof Pain Scale: 0-10 Numeric Is Patient Pain Free? Yes WC - Nurse 3 - General Ulcer D/C NN Start: 07/15/23 10:10 Freq: Status: Active Protocol: Activity Type Activity Date Activity User E-sign Co-sign Detail Recorded Client Recorded Date Recorded By Document 07/15/23 11:40 MW Desktop 07/15/23 12:21 MW Document 07/22/23 12:39 MT Desktop 07/22/23 12:40 MT Document 08/05/23 10:51 MT Desktop 08/05/23 10:52 MT Edit Result 08/05/23 10:51 MT (1) Desktop 08/05/23 10:59 RB Document 08/05/23 10:58 RB Desktop 08/05/23 10:58 RB (1) #18 Left medial LE cluster - Primary Dressing Applied Optilok 8x12 => Hysept ($),Optilok => 8x12 07/15/23 07/22/23 08/05/23 11:40 12:39 10:51 Wound Care Center Nurse 3 #18 Left medial LE cluster -Ulcer Cleansing Rinsed/ Soap and Water Wound Cleanser Irrigated with Saline -Foul Odor after Cleansing No -Negative Pressure Wound Therapy N/A -Primary Dressing Applied Hysept ($), Optilok 8x12 Hysept ($), Optilok 8x12 Optilok 8x12 -Other Dressing Dakins Wet to dakins wet to dakins dry dry moistened gauze -Primary Dressing Covered/Secured with Dry Gauze & Dry Gauze & Dry Gauze & Roll Gauze, Roll Gauze, Roll Gauze, Secured with Secured with Secured with Tape Tape Tape -Optilok 8x12 1 1 1 Right -Tubular Bandage Single Layer -Size of Tubigrip Used Size D -Size D ($) 1 Left -Lotion applied to leg before No compression wrap -Tubular Bandage Double Layer Single Layer -Size of Tubigrip Used Size E Size D -Size D ($) 1 -Size E ($) 2 Treatment Response Procedure Procedure Tolerated Well Tolerated Well Pain Scale: 0-10 Numeric Is Patient Pain Free? Yes Yes Yes Teaching: Wound Center Control Swelling with Leg Elevation -Person Taught Patient -Teaching Method Discussion, Demonstration -Response to teaching Verbalize understanding WC - Visit Discharge Discharge Condition Stable Stable Stable Ambulatory Status Ambulatory, Ambulatory, Ambulatory, Walker Walker Walker Transportation Private Auto Private Auto Private Auto Accompanied by self Medication Reconcilliation completed & No No No provided to patient/care provider Clinical Summary of Care Provided Yes Yes Yes 08/05/23 10:58 Wound Care Center Nurse 3 #18 Left medial LE cluster -Ulcer Cleansing -Foul Odor after Cleansing -Negative Pressure Wound Therapy -Primary Dressing Applied Hysept ($) -Other Dressing -Primary Dressing Covered/Secured with -Optilok 8x12 Right -Tubular Bandage -Size of Tubigrip Used -Size D ($) Left -Lotion applied to leg before compression wrap -Tubular Bandage -Size of Tubigrip Used -Size D ($) -Size E ($) Treatment Response Pain Scale: 0-10 Numeric Is Patient Pain Free? Yes Teaching: Wound Center Control Swelling with Leg Elevation -Person Taught -Teaching Method -Response to teaching WC - Visit Discharge Discharge Condition Ambulatory Status Transportation Accompanied by Medication Reconcilliation completed & provided to patient/care provider Clinical Summary of Care Provided Assessment/Plan Assessment/Plan (1) Ulcer of left lower extremity with fat layer exposed: CODE(S): L97.922 - Non-pressure chronic ulcer of unspecified part of left lower leg with fat layer exposed (2) Venous insufficiency: CODE(S): I87.2 - Venous insufficiency (chronic) (peripheral) (3) Edema: CODE(S): R60.9 - Edema, unspecified QUALIFIERS: Edema type: unspecified Qualified Code(s): R60.9 - Edema, unspecified (4) History of CVA (cerebrovascular accident): CODE(S): Z86.73 - Personal history of transient ischemic attack (TIA), and cerebral infarction without residual deficits (5) 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 At home wound-care instructions: Will apply Dakins wet to dry gauze to ulcers and will cover with super absorber and KATE bandage changed daily for heavy drainage. Will have him start Levaquin to treat Pseudomonas infection as topical treatment with Dakins is not improving. Off-loading: The patient was instructed to avoid pressure and friction on the affected areas. Reposition every 2 hours at minimum. Avoid prolonged standing and/or dangling of legs. When seated, feet should be elevated at chest level. Frequent ambulation is encouraged. Encouraged lymphedema pump use. Diet: Patient encouraged to increase protein intake while taking caution to avoid high carbohydrate and/or sugar intake. Labs/cultures/imaging: Wound culture showed 1+ Pseudomonas that is sensitive to antibiotics. Follow-up: Return in 1 week for wound care follow up and have secondary dressing changed by home health Tuesday and Tuesday. Return sooner or report to the emergency room should symptoms worsen, or new symptoms arise. Note: [employer] speech recognition multiskill operator software was used to create portions of this document. Sound-alike and misspelled words, as well as other multiskill operator errors may be contained in the documentation.
== END 2023-08-09 23:59 | disposition home or self-care (01) ==
LOC: WC 09:30
PROVIDERS: PCP Family Medicine; Referring Provider Family Medicine; Visit Provider Family Medicine
DX: I83.029 Varicose veins of left lower extremity with ulcer of unspecified site (principal); L97.922 Non-pressure chronic ulcer of unspecified part of left lower leg with fat layer exposed; M79.605 Pain in left leg; B96.5 Pseudomonas (aeruginosa) (mallei) (pseudomallei) as the cause of diseases classified elsewhere; I87.2 Venous insufficiency (chronic) (peripheral); R60.9 Edema, unspecified; Z86.73 Personal history of transient ischemic attack (TIA), and cerebral infarction without residual deficits; I89.0 Lymphedema, not elsewhere classified
CPT/HCPCS: 11042; 11045

== ENCOUNTER 2023-08-25 11:30 | Outpatient (RCR) | payer MEDICARE, OTHER, SELFPAY ==
[2023-08-10 00:41] VITALS: BP 101/64; PULSE 75; RESP 18; TEMP 35.3
[2023-08-12 09:40] VITALS: BP 144/84; PULSE 75; RESP 18; TEMP 35.8
--- NOTE | 2023-08-12 14:26 | PN.PCM_ITS ---
History of Present Illness Date of Service: 08/12/23 Chief Complaint: venous ulcers of left lower extremity History of Wound: Mauricio is a 68 yo gentleman who is here today for evaluation of ulcers to to his bilateral lower legs. He has been treated multiple times in the past at the wound healing center for similar ulcers. The left LE ulcer started after he developed increased swelling and blisters of left leg in October and the right leg started sometime at the end of October. He was seen at PCP's office a culture was taken and it was resistant to several antibiotics. He was treated initially with Levaquin but had myalgias and then was treated with doxycycline which he finished 2 days ago. He denies improvement and is having swelling to his left calf and thigh. He has been having swelling to both lower extremities for many years and it has worsened over the last few months. He has not been compliant with compression. He has had increased pain especially in the left leg. He has clear yellow drainage and redness without odor or warmth. He is anti- coagulated on coumadin. He has been washing with Dial soap and witch ifrah. He had been using Collagen at times and using Calcium Alginate and covering with ABD pads during October. He was treated with 3M compression and Aquacel Ag. He was referred to the wound center for ongoing treatment. His ulcers have moderate to heavy drainage. He was recently hospitalized for cellulitis and edema for the last 10 days. He was in the hospital from 11/30/22 until 12/09/22 for treatment of cellulitis and edema. He underwent treatment with Vancomycin and IV lasix and compression. Discharged on 12/09/22. He returned to his assisted living apartment on Tuesday12/21/22. Subjective Subjective Ulcers are relatively unchanged but seem to be decreasing in size through islands between ulcers. Edema is somewhat better today. He has been using lymphedema pumps. He has had more pain. Denies fever, chills, or increased drainage. Wound culture was positive for Pseudomonas and he has been tolerating Dakins and Levaquin. Objective Data Objective Data Vital Signs: Vital Signs Temp Pulse Resp BP O2 Del Method 96.4 F L 75 18 144/84 H Room Air 08/12/23 09:40 08/12/23 09:40 08/12/23 09:40 08/12/23 09:40 08/12/23 09:40 Oxygen Delivery Method Room Air Physical Exam Const alert, oriented x3 and no apparent distress General Appearance: cooperative and comfortable HEENT normocephalic and head/scalp atraumatic Lymph Lymphatic: lymphedema moderate Resp normal respiratory effort Effort and Inspection: able to speak in complete sentences Cardio regular rate and regular rhythm Extremity General Extremity: edema bilateral lower extremity Details: severe Skin Wounds: wounds noted Wound Narrative: as in clinical panel Psych mental status grossly normal, thought process normal, cooperative and affect normal Debridement Note Debridement Note Wound debrided: left medial LE cluster Laterality: Left Type of Debridement: Excisional debridement Anesthesia Used: 4% Lidocaine Solution and 5% Lidocaine Gel Depth: Down to and including healthy tissue and in the subcutaneous layer Percentage of wound debrided: 100 Instrument Used: - (misonix ultrasonic debridement) Tissue Removed: Yellow slough, devitalized tissue Severity: Fat Layer Exposed Amount of bleeding with debridement: Mild Bleeding Controlled with: Compression and gauze Patient tolerated procedure: Patient tolerated procedure well Post-Debridement Measurements and Additional Note: Post-Debridement Measurements/Treatment - Nurse 1 - General Ulcer Assessment Start: 08/12/23 09:40 Freq: Status: Active Protocol: .LOWDIPIKAT Activity Type Activity Date Activity User E-sign Co-sign Detail Recorded Client Recorded Date Recorded By Document 08/12/23 09:40 [facility] Desktop 08/12/23 09:46 [facility] 08/12/23 09:40 - Today's Visit Information Type of service Follow-up Visit (Physician/STOPPER SETTER ) Arrival Mode Ambulatory, Walker Transfer Assistance None Patient Identification Verified (Name & Yes ) Patient Requires Transmission-Based No Precautions Vital Signs Temperature (97.8 F-99.1 F) 96.4 F L Temperature Source Temporal Pulse Rate (60-100) 75 Pulse Location Monitor Respiratory Rate (12-18) 18 Respiratory rate source Observation Oxygen Delivery Method Room Air Blood Pressure (90/60-120/80) 144/84 H Blood Pressure Mean (mm Hg) 104 Source Monitor Position Sitting Blood Pressure Location Right Arm History Since Last Visit- (Skip if this is Patient's initial visit) Have you changed medications since your No last visit? Any new allergies or adverse reactions No Had a fall/change in ADL's that may No increase risk of falls Signs or symptoms of abuse and/or No neglect since last visit Have you been in the hospital since your No last visit? Has dressing in place as prescribed Yes Has compression in place as prescribed Yes Has offloadiing in place as prescribed N/A Experienced any changes in pain level or No management Left Footwear Custom Shoe Right Footwear Custom Shoe Pain Scale: 0-10 Numeric Is Patient Pain Free? Yes - Nurse 1 - General Ulcer Measurement Start: 08/12/23 09:40 Freq: Status: Active Protocol: Activity Type Activity Date Activity User E-sign Co-sign Detail Recorded Client Recorded Date Recorded By Document 08/12/23 09:40 [facility] Desktop 08/12/23 09:46 [facility] 08/12/23 09:40 Wound Center Nurse 1 #18 Left medial LE cluster -Combined with other wound No -Current Size (cm) - Length 10.3 -Current Size (cm) - Width 22.3 -Current Size (cm) - Depth 0.3 -Total Square Cm 229.69 -Tunneling No -Undermining/Tunneling No -Circular Undermining No -Exudate Amt Large -Exudate Type Serosanguineous -Wound Margin Distinct, Outline Attached -Granulation Amt Medium (34-66%) -Granulation Quality [place] -Slough/Fibrin Yes -Necrosis Amt Medium (34-66%) -Necrotic Tissue Type Adherent Slough -Structure Exposed N/A -Texture (Marie-wound Skin Appearance) Assessed -Moisture (Marie-wound Skin Appearance) Assessed -Color (Marie-wound Skin Appearance) Assessed -Temperature (Marie-wound Skin No Abnormality Appearance) (Pt Warm) -Tenderness on Palpation (Marie-wound No Skin Appearance) -Ulcer Cleansing Wound Cleanser -Foul Odor after Cleansing No -Anesthetic Used 4% Lidocaine Solution,5% Lidocaine Gel Lower Limb Edema Present Yes Left Calf (cm) 44.5 Left Ankle (cm) 31.7 - Nurse 2 - General Ulcer CM Notes Start: 08/12/23 09:40 Freq: Status: Active Protocol: Activity Type Activity Date Activity User E-sign Co-sign Detail Recorded Client Recorded Date Recorded By Document 08/12/23 10:29 Desktop 08/12/23 10:41 08/12/23 10:29 Wound Center Nurse 2 #18 Left medial LE cluster -Time 10:29 -Correct Patient Yes -Correct Side, Site, Position Yes -Correct Procedure Yes -Procedure Performed Yes -Type of Procedure Debridement -Clinical Debridement Subcutaneous -Tissue Removed Subcutaneous -Post Debridement (cm) - Length 10.0 -Post Debridement (cm) - Width 20.0 -Post Debridement (cm) - Depth 0.2 -Total Square (Post) (cm) 200.00 -Area of Debridement (cm) - Length 10.0 -Area of Debridement (cm) - Width 20.0 -Total Square (Area) (cm) 200.00 -Tunneling No -Undermining/Tunneling No -Circular Undermining No -Wound/Ulcer Outcome Not Healed -Ulcer Cleansing Rinsed/ Irrigated with Saline -Foul Odor after Cleansing No -Bioengineered Tissue No -Bleeding Controlled with Pressure -Treatment Response Procedure Tolerated Well -Debridement - Subq, 1st 20sq cm Yes -Debridement, SubQ, ea addt'l 20sq cm 9 or part thereof Pain Scale: 0-10 Numeric Is Patient Pain Free? Yes - Nurse 3 - General Ulcer D/C NN Start: 08/12/23 09:40 Freq: Status: Active Protocol: Activity Type Activity Date Activity User E-sign Co-sign Detail Recorded Client Recorded Date Recorded By Document 08/12/23 10:54 [facility] Desktop 08/12/23 10:55 [facility] 08/12/23 10:54 Wound Care Center Nurse 3 #18 Left medial LE cluster -Ulcer Cleansing Rinsed/ Irrigated with Saline -Primary Dressing Applied Optilok 8x12 -Other Dressing dakins moistened gauze -Primary Dressing Covered/Secured with Dry Gauze & Roll Gauze, Secured with Tape -Optilok 8x12 1 Right -Tubular Bandage Single Layer -Size of Tubigrip Used Size D -Size D ($) 1 Left -Tubular Bandage Single Layer -Size of Tubigrip Used Size D -Size D ($) 1 Treatment Response Procedure Tolerated Well Pain Scale: 0-10 Numeric Is Patient Pain Free? Yes - Visit Discharge Discharge Condition Stable Ambulatory Status Ambulatory, Walker Transportation Private Auto Medication Reconcilliation completed & No provided to patient/care provider Clinical Summary of Care Provided Yes Assessment/Plan Assessment/Plan (1) Ulcer of left lower extremity with fat layer exposed: CODE(S): L97.922 - Non-pressure chronic ulcer of unspecified part of left lower leg with fat layer exposed (2) Venous insufficiency: CODE(S): I87.2 - Venous insufficiency (chronic) (peripheral) (3) Edema: CODE(S): R60.9 - Edema, unspecified QUALIFIERS: Edema type: unspecified Qualified Code(s): R60.9 - Edema, unspecified (4) History of CVA (cerebrovascular accident): CODE(S): Z86.73 - Personal history of transient ischemic attack (TIA), and cerebral infarction without residual deficits (5) 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 At home wound-care instructions: Will continue to apply Dakins wet to dry gauze to ulcers and will cover with super absorber and KATE bandage changed daily for heavy drainage. Complete course of Levaquin. Off-loading: The patient was instructed to avoid pressure and friction on the affected areas. Reposition every 2 hours at minimum. Avoid prolonged standing and/or dangling of legs. When seated, feet should be elevated at chest level. Frequent ambulation is encouraged. Encouraged lymphedema pump use. Diet: Patient encouraged to increase protein intake while taking caution to avoid high carbohydrate and/or sugar intake. Labs/cultures/imaging: Wound culture showed 1+ Pseudomonas that is sensitive to Levofloxacin and will complete treatment on 08/16/23. Follow-up: Return in 1 week for wound care follow up and have secondary dressing changed by home health Tuesday and Tuesday. Return sooner or report to the emergency room should symptoms worsen, or new symptoms arise. Note: Cuffed and Wanted speech recognition bottle machine operator software was used to create portions of this document. Sound-alike and misspelled words, as well as other bottle machine operator errors may be contained in the documentation.
[2023-08-18 09:49] VITALS: BP 132/76; PULSE 73; RESP 22; TEMP 36.2
--- NOTE | 2023-08-18 20:03 | PCM.WC.PN ---
History of Present Illness Date of Service: 08/18/23 Chief Complaint: venous ulcers of left lower extremity History of Wound: Mauricio is a 68 yo gentleman who is here today for evaluation of ulcers to to his bilateral lower legs. He has been treated multiple times in the past at the wound healing center for similar ulcers. The left LE ulcer started after he developed increased swelling and blisters of left leg in October and the right leg started sometime at the end of October. He was seen at PCP's office a culture was taken and it was resistant to several antibiotics. He was treated initially with Levaquin but had myalgias and then was treated with doxycycline which he finished 2 days ago. He denies improvement and is having swelling to his left calf and thigh. He has been having swelling to both lower extremities for many years and it has worsened over the last few months. He has not been compliant with compression. He has had increased pain especially in the left leg. He has clear yellow drainage and redness without odor or warmth. He is anti-coagulated on coumadin. He has been washing with Dial soap and witch ifrah. He had been using Collagen at times and using Calcium Alginate and covering with ABD pads during October. He was treated with 3M compression and Aquacel Ag. He was referred to the wound center for ongoing treatment. His ulcers have moderate to heavy drainage. He was recently hospitalized for cellulitis and edema for the last 10 days. He was in the hospital from 11/30/22 until 12/09/22 for treatment of cellulitis and edema. He underwent treatment with Vancomycin and IV lasix and compression. Discharged on 12/09/22. He returned to his assisted living apartment on Tuesday12/21/22. Subjective Subjective Patient is a 68-year-old male with longstanding history of chronic venous ulceration to the left lower extremity. Continues to follow the wound care center with Dr. Garcia. Patient states that he has history of bilateral DVT and chronic venous insufficiency, in addition to lymphedema. He states he does use his lymphedema pumps but continues to have pain with use of these pumps. Patient states he is hypersensitive to pain and does not routinely tolerate debridement. He denies constitutional symptoms. Denies further complaints. Objective Data Objective Data Vital Signs: Vital Signs Temp Pulse Resp BP O2 Del Method 97.2 F L 73 22 H 132/76 H Room Air 08/18/23 09:49 08/18/23 09:49 08/18/23 09:49 08/18/23 09:49 08/12/23 09:40 Oxygen Delivery Method Room Air Physical Exam Const alert, oriented x3, no apparent distress and well nourished General Appearance: cooperative Nutritional Appearance: morbidly obese HEENT normocephalic Eyes General Eye: normal appearance of both eyes Neck General: normal visual inspection Lymph Lymphatic: no lymphadenopathy noted and lymphedema Resp normal respiratory effort Cardio regular rate and regular rhythm Extremity normal capillary refill Extremity Narrative: Vascular: DP and PT pulses palpable bilateral with capillary fill time less than 4 seconds to the lesser digits. Dermatological: Stemmer sign positive second digit left foot. Skin changes consistent with lymphedema. There is a large circumferential ulceration noted to the left lower extremity starting anteriorly wrapping medially, posteriorly, and to the lateral leg. There is a healthy appearing skin island bridging at the anterior lateral leg. Wound bed demonstrates thin layer of fibrotic tissue with wound edges demonstrating slight rubor secondary to chronic venous insufficiency. No signs of infection. Musculoskeletal: Muscle strength 5 of 5 age-appropriate. Does have pain to palpation to the left lower extremity about ulcerative site. Skin no jaundice Neuro moves all extremities Debridement Note Debridement Note No debridement was completed: No debridement was completed today Post-Debridement Measurements and Additional Note: Post-Debridement Measurements/Treatment - Nurse 1 - General Ulcer Assessment Start: 08/12/23 09:40 Freq: Status: Active Protocol: WC.LOWEXT Activity Type Activity Date Activity User E-sign Co-sign Detail Recorded Client Recorded Date Recorded By Document 08/12/23 09:40 [facility] Desktop 08/12/23 09:46 [facility] Document 08/18/23 09:49 DL Desktop 08/18/23 10:02 DL 08/12/23 08/18/23 09:40 09:49 - Today's Visit Information Type of service Follow-up Visit Follow-up Visit (Physician/MARINA MANAGER (Physician/MARINA MANAGER ) ) Arrival Mode Ambulatory, Ambulatory, Walker Walker Transfer Assistance None None Patient Identification Verified (Name & Yes Yes ) Patient Requires Transmission-Based No No Precautions Vital Signs Temperature (97.8 F-99.1 F) 96.4 F L 97.2 F L Temperature Source Temporal Temporal Pulse Rate (60-100) 75 73 Pulse Location Monitor Monitor Respiratory Rate (12-18) 18 22 H Respiratory rate source Observation Observation Oxygen Delivery Method Room Air Blood Pressure (90/60-120/80) 144/84 H 132/76 H Blood Pressure Mean (mm Hg) 104 94 Source Monitor Position Sitting Blood Pressure Location Right Arm History Since Last Visit- (Skip if this is Patient's initial visit) Have you changed medications since your No No last visit? Any new allergies or adverse reactions No No Had a fall/change in ADL's that may No No increase risk of falls Signs or symptoms of abuse and/or No No neglect since last visit Have you been in the hospital since your No No last visit? Has dressing in place as prescribed Yes Yes Has compression in place as prescribed Yes Yes Has offloadiing in place as prescribed N/A N/A Experienced any changes in pain level or No No management Left Footwear Custom Shoe Right Footwear Custom Shoe Pain Scale: 0-10 Numeric Is Patient Pain Free? Yes Yes WC - Nurse 1 - General Ulcer Measurement Start: 08/12/23 09:40 Freq: Status: Active Protocol: Activity Type Activity Date Activity User E-sign Co-sign Detail Recorded Client Recorded Date Recorded By Document 08/12/23 09:40 [facility] Desktop 08/12/23 09:46 [facility] Document 08/18/23 09:49 DL Desktop 08/18/23 10:02 DL 08/12/23 08/18/23 09:40 09:49 Wound Center Nurse 1 #18 Left medial LE cluster -Combined with other wound No -Current Size (cm) - Length 10.3 11 -Current Size (cm) - Width 22.3 22.2 -Current Size (cm) - Depth 0.3 0.3 -Total Square Cm 229.69 244.2 -Tunneling No -Undermining/Tunneling No -Circular Undermining No -Exudate Amt Large Medium -Exudate Type Serosanguineous Serosanguineous -Wound Margin Distinct, Distinct, Outline Outline Attached Attached -Granulation Amt Medium (34-66%) Medium (34-66%) -Granulation Quality Palmetto Red -Slough/Fibrin Yes -Necrosis Amt Medium (34-66%) Medium (34-66%) -Necrotic Tissue Type Adherent Slough Adherent Slough -Structure Exposed N/A N/A -Texture (Marie-wound Skin Appearance) Assessed Localized Edema ,Scarring -Moisture (Marie-wound Skin Appearance) Assessed No Abnormality -Color (Marie-wound Skin Appearance) Assessed Erythema, Hemosiderin Staining -Temperature (Marie-wound Skin No Abnormality No Abnormality Appearance) (Pt Warm) (Pt Warm) -Tenderness on Palpation (Marie-wound No No Skin Appearance) -Ulcer Cleansing Wound Cleanser Soap and Water -Foul Odor after Cleansing No No -Anesthetic Used 4% Lidocaine 4% Lidocaine Solution,5% Solution Lidocaine Gel Lower Limb Edema Present Yes Left Calf (cm) 44.5 43.5 Left Ankle (cm) 31.7 33 - Nurse 2 - General Ulcer CM Notes Start: 08/12/23 09:40 Freq: Status: Active Protocol: Activity Type Activity Date Activity User E-sign Co-sign Detail Recorded Client Recorded Date Recorded By Document 08/12/23 10:29 Desktop 08/12/23 10:41 08/12/23 10:29 Wound Center Nurse 2 #18 Left medial LE cluster -Time 10:29 -Correct Patient Yes -Correct Side, Site, Position Yes -Correct Procedure Yes -Procedure Performed Yes -Type of Procedure Debridement -Clinical Debridement Subcutaneous -Tissue Removed Subcutaneous -Post Debridement (cm) - Length 10.0 -Post Debridement (cm) - Width 20.0 -Post Debridement (cm) - Depth 0.2 -Total Square (Post) (cm) 200.00 -Area of Debridement (cm) - Length 10.0 -Area of Debridement (cm) - Width 20.0 -Total Square (Area) (cm) 200.00 -Tunneling No -Undermining/Tunneling No -Circular Undermining No -Wound/Ulcer Outcome Not Healed -Ulcer Cleansing Rinsed/ Irrigated with Saline -Foul Odor after Cleansing No -Bioengineered Tissue No -Bleeding Controlled with Pressure -Treatment Response Procedure Tolerated Well -Debridement - Subq, 1st 20sq cm Yes -Debridement, SubQ, ea addt'l 20sq cm 9 or part thereof Pain Scale: 0-10 Numeric Is Patient Pain Free? Yes - Nurse 3 - General Ulcer D/C NN Start: 08/12/23 09:40 Freq: Status: Active Protocol: Activity Type Activity Date Activity User E-sign Co-sign Detail Recorded Client Recorded Date Recorded By Document 08/12/23 10:54 RB Desktop 08/12/23 10:55 RB Document 08/18/23 11:33 KW Desktop 08/18/23 11:34 KW 08/12/23 08/18/23 10:54 11:33 Wound Care Center Nurse 3 #18 Left medial LE cluster -Ulcer Cleansing Rinsed/ Rinsed/ Irrigated with Irrigated with Saline Saline -Primary Dressing Applied Optilok 8x12 Optilok 8x12 -Other Dressing dakins moistened gauze -Primary Dressing Covered/Secured with Dry Gauze & Dry Gauze & Roll Gauze, Roll Gauze, Secured with Secured with Tape Tape -Optilok 8x12 1 1 Right -Tubular Bandage Single Layer -Size of Tubigrip Used Size D -Size D ($) 1 Left -Tubular Bandage Single Layer Single Layer -Size of Tubigrip Used Size D Size E -Size D ($) 1 -Size E ($) 1 Treatment Response Procedure Tolerated Well Pain Scale: 0-10 Numeric Is Patient Pain Free? Yes Yes WC - Visit Discharge Discharge Condition Stable Ambulatory Status Ambulatory, Walker Transportation Private Auto Medication Reconcilliation completed & No provided to patient/care provider Clinical Summary of Care Provided Yes Assessment/Plan Assessment/Plan (1) Lymphedema: CODE(S): I89.0 - Lymphedema, not elsewhere classified (2) Hypertension: CODE(S): I10 - Essential (primary) hypertension QUALIFIERS: Hypertension type: primary hypertension Qualified Code(s): I10 - Essential (primary) hypertension (3) Hyperlipidemia: CODE(S): E78.5 - Hyperlipidemia, unspecified (4) History of DVT (deep vein thrombosis): CODE(S): Z86.718 - Personal history of other venous thrombosis and embolism (5) Venous insufficiency (chronic) (peripheral): CODE(S): I87.2 - Venous insufficiency (chronic) (peripheral) (6) Venous ulcer of left lower extremity with varicose veins: CODE(S): I83.029 - Varicose veins of left lower extremity with ulcer of unspecified site (7) Edema: CODE(S): R60.9 - Edema, unspecified QUALIFIERS: Edema type: unspecified Qualified Code(s): R60.9 - Edema, unspecified PLAN: Plan Patient seen and evaluated Patient is seen in consultation on behalf of Dr. Garcia for possible surgical debridement of the left lower extremity secondary to chronic nonhealing ulceration. I have reviewed patient's records of this ulceration extending back to November 2022. Patient has been seen by Dr. Carranza, Dr. Collado, and myself during hospital admission prior to his discharge on 12/09/2022. Patient is noted to be hypersensitive to pain and at that time did not tolerate dressing changes well with mechanical debridement via wet to dry. Patient's ulcerations were improving with elevation and compression therapy however following discharge back to facility does appear edema has returned with significant worsening of these ulcerative sites. Patient has been following with Dr. Garcia in the wound care center for weekly serial debridement. She states little improvement in ulcerative sites post Misonix ultrasonic debrider treatments. Large left lower extremity circumferential ulceration with fibrotic tissue to the wound bed secondary to chronic venous insufficiency complicated by lymphedema. Wound measures 12 cm x 22 cm x 0.2 cm. No signs of infection. No debridement was performed today. I discussed with patient the need for an extensive sharp debridement followed by compressive therapy. Discussed with patient his hypersensitivity he does still need compression to the lower extremity or ulceration will not heal. I discussed returning for debridement in which he will undergo a proximal lower extremity local anesthetic block followed by extensive sharp debridement of all fibrotic tissue to the level of healthy bleeding tissue. He voices understanding of our discussion. Dressing: Dakin's wet to dry dressing was applied to all ulcerative sites and covered with super absorb. Compression via Marcio was applied today at patient request due to inability to tolerate further compression. I again discussed the need for adequate compression to be applied to promote healing of the ulceration. Offloading: I continue to recommend avoiding of pressure to the ulcerative site and to ensure legs do not rest against a recliner and legs are elevated to aid in edema control. Discussed avoiding prolonged standing or dangling of lower extremities over edge of chair or bed. Again stressed elevation of lower extremities at times of rest. I did discuss with him his proper diet to avoid excess sodium, to increase his protein intake, and to avoid high carbohydrate and sugary foods. Cultures: Previous cultures did demonstrate Pseudomonas sensitive to levofloxacin. He did finish oral antibiotic, levofloxacin on 08/16/2023. I discussed signs and symptoms of infection. Discussed with the patient if he notices redness about the ulcerative site moving up the leg or spreading about the leg, any purulent drainage from wound sites, increasing foul odor from the wound site, or a if he experiences fever greater than 101 degree, nausea, vomiting, chills/rigors, these are signs of a progressing infection and he needs to report to the ED to receive IV antibiotics. He voices understanding of this. He will return in 1 week to the wound care center with myself to perform extensive debridement of the left lower extremity followed by compression wrap therapy. He will then return to Dr. Garcia in wound care center the following week.
[2023-08-25 11:12] VITALS: BP 155/95; PULSE 77; RESP 18; TEMP 35.9
--- NOTE | 2023-08-25 13:05 | PCM.WC.PN ---
History of Present Illness Date of Service: 08/25/23 Chief Complaint: venous ulcers of left lower extremity History of Wound: Mauricio is a 68 yo gentleman who is here today for evaluation of ulcers to to his bilateral lower legs. He has been treated multiple times in the past at the wound healing center for similar ulcers. The left LE ulcer started after he developed increased swelling and blisters of left leg in October and the right leg started sometime at the end of October. He was seen at PCP's office a culture was taken and it was resistant to several antibiotics. He was treated initially with Levaquin but had myalgias and then was treated with doxycycline which he finished 2 days ago. He denies improvement and is having swelling to his left calf and thigh. He has been having swelling to both lower extremities for many years and it has worsened over the last few months. He has not been compliant with compression. He has had increased pain especially in the left leg. He has clear yellow drainage and redness without odor or warmth. He is anti-coagulated on coumadin. He has been washing with Dial soap and witch ifrah. He had been using Collagen at times and using Calcium Alginate and covering with ABD pads during October. He was treated with 3M compression and Aquacel Ag. He was referred to the wound center for ongoing treatment. His ulcers have moderate to heavy drainage. He was recently hospitalized for cellulitis and edema for the last 10 days. He was in the hospital from 11/30/22 until 12/09/22 for treatment of cellulitis and edema. He underwent treatment with Vancomycin and IV lasix and compression. Discharged on 12/09/22. He returned to his assisted living apartment on Tuesday12/21/22. Subjective Subjective Patient is a 68-year-old male with longstanding history of chronic venous ulceration to the left lower extremity. Continues to follow the wound care center with Dr. Garcia. Patient states that he has history of bilateral DVT and chronic venous insufficiency, in addition to lymphedema. He states he does use his lymphedema pumps but continues to have pain with use of these pumps. Patient states he is hypersensitive to pain and does not routinely tolerate debridement or compression. He returns for extensive debridement of the lower extremity wound. He denies constitutional symptoms. Denies further complaints. Objective Data Objective Data Vital Signs: Vital Signs Temp Pulse Resp BP O2 Del Method 96.6 F L 77 18 155/95 H Room Air 08/25/23 11:12 08/25/23 11:12 08/25/23 11:12 08/25/23 11:12 08/25/23 11:12 Oxygen Delivery Method Room Air Physical Exam Const alert, oriented x3, no apparent distress and well nourished General Appearance: cooperative Nutritional Appearance: morbidly obese HEENT normocephalic Eyes General Eye: normal appearance of both eyes Neck General: normal visual inspection Lymph Lymphatic: no lymphadenopathy noted and lymphedema Resp normal respiratory effort Cardio regular rate and regular rhythm Extremity normal capillary refill Extremity Narrative: Vascular: DP and PT pulses palpable bilateral with capillary fill time less than 4 seconds to the lesser digits. Dermatological: Stemmer sign positive second digit left foot. Skin changes consistent with lymphedema. There is a large circumferential ulceration noted to the left lower extremity starting anteriorly wrapping medially, posteriorly, and to the lateral leg. There is a healthy appearing skin island bridging at the anterior lateral leg. Wound bed demonstrates thin layer of fibrotic tissue with wound edges demonstrating slight rubor secondary to chronic venous insufficiency. No signs of infection. Musculoskeletal: Muscle strength 5 of 5 age-appropriate. Does have pain to palpation to the left lower extremity about ulcerative site. Skin no jaundice Neuro moves all extremities Debridement Note Debridement Note Wound debrided: Left lower extremity Laterality: Left Wound Grade/Stage: Brito stage I Type of Debridement: Excisional debridement Anesthesia Used: - (20 cc 1% lidocaine plain for proximal complete lower extremity block) Depth: Down to and including healthy tissue and in the subcutaneous layer Percentage of wound debrided: 100 Instrument Used: 7mm curette Tissue Removed: Fibrous, devitalized subcutaneous, biofilm, slough Severity: Fat Layer Exposed Amount of bleeding with debridement: Mild Bleeding Controlled with: Compression and gauze Post-Debridement Measurements and Additional Note: Post-Debridement Measurements/Treatment DEBBIE - Nurse 1 - General Ulcer Assessment Start: 08/12/23 09:40 Freq: Status: Active Protocol: ONDINA Activity Type Activity Date Activity User E-sign Co-sign Detail Recorded Client Recorded Date Recorded By Document 08/12/23 09:40 BMF Desktop 08/12/23 09:46 BMF Document 08/18/23 09:49 DL Desktop 08/18/23 10:02 DL Document 08/25/23 11:12 KW Desktop 08/25/23 11:20 KW 08/12/23 08/18/23 08/25/23 09:40 09:49 11:12 - Today's Visit Information Type of service Follow-up Visit Follow-up Visit Follow-up Visit (Physician/CELERY WRAPPER (Physician/CELERY WRAPPER (Physician/CELERY WRAPPER ) ) ) Arrival Mode Ambulatory, Ambulatory, Walker Walker Walker Transfer Assistance None None Patient Identification Verified (Name & Yes Yes Yes ) Patient Requires Transmission-Based No No Precautions Vital Signs Temperature (97.8 F-99.1 F) 96.4 F L 97.2 F L 96.6 F L Temperature Source Temporal Temporal Temporal Pulse Rate (60-100) 75 73 77 Pulse Location Monitor Monitor Monitor Respiratory Rate (12-18) 18 22 H 18 Respiratory rate source Observation Observation Observation Oxygen Delivery Method Room Air Room Air Blood Pressure (90/60-120/80) 144/84 H 132/76 H 155/95 H Blood Pressure Mean (mm Hg) 104 94 115 Source Monitor Monitor Position Sitting Semi-Fowlers Blood Pressure Location Right Arm Left Arm History Since Last Visit- (Skip if this is Patient's initial visit) Have you changed medications since your No No last visit? Any new allergies or adverse reactions No No Had a fall/change in ADL's that may No No increase risk of falls Signs or symptoms of abuse and/or No No neglect since last visit Have you been in the hospital since your No No last visit? Has dressing in place as prescribed Yes Yes Has compression in place as prescribed Yes Yes Has offloadiing in place as prescribed N/A N/A Experienced any changes in pain level or No No management Left Footwear Custom Shoe Right Footwear Custom Shoe Pain Scale: 0-10 Numeric Is Patient Pain Free? Yes Yes Yes - Nurse 1 - General Ulcer Measurement Start: 08/12/23 09:40 Freq: Status: Active Protocol: Activity Type Activity Date Activity User E-sign Co-sign Detail Recorded Client Recorded Date Recorded By Document 08/12/23 09:40 BMF Desktop 08/12/23 09:46 BMF Document 08/18/23 09:49 DL Desktop 08/18/23 10:02 DL Document 08/25/23 11:12 KW Desktop 08/25/23 11:20 KW 08/12/23 08/18/23 08/25/23 09:40 09:49 11:12 Wound Center Nurse 1 #18 Left medial LE cluster -Combined with other wound No -Current Size (cm) - Length 10.3 11 20.5 -Current Size (cm) - Width 22.3 22.2 9.5 -Current Size (cm) - Depth 0.3 0.3 0.3 -Total Square Cm 229.69 244.2 194.75 -Tunneling No -Undermining/Tunneling No -Circular Undermining No -Exudate Amt Large Medium -Exudate Type Serosanguineous Serosanguineous -Wound Margin Distinct, Distinct, Distinct, Outline Outline Outline Attached Attached Attached -Granulation Amt Medium (34-66%) Medium (34-66%) Large (67-100%) -Granulation Quality [place] Red Red -Slough/Fibrin Yes -Necrosis Amt Medium (34-66%) Medium (34-66%) Small (1-33%) -Necrotic Tissue Type Adherent Slough Adherent Slough Adherent Slough -Structure Exposed N/A N/A -Texture (Marie-wound Skin Appearance) Assessed Localized Edema Assessed, ,Scarring Localized Edema -Moisture (Marie-wound Skin Appearance) Assessed No Abnormality Assessed -Color (Marie-wound Skin Appearance) Assessed Erythema, Assessed, Hemosiderin Erythema Staining -Temperature (Marie-wound Skin No Abnormality No Abnormality No Abnormality Appearance) (Pt Warm) (Pt Warm) (Pt Warm) -Tenderness on Palpation (Marie-wound No No Skin Appearance) -Ulcer Cleansing Wound Cleanser Soap and Water Soap and Water -Foul Odor after Cleansing No No No -Anesthetic Used 4% Lidocaine 4% Lidocaine 4% Lidocaine Solution,5% Solution Solution Lidocaine Gel Lower Limb Edema Present Yes Left Calf (cm) 44.5 43.5 Left Ankle (cm) 31.7 33 WC - Nurse 2 - General Ulcer CM Notes Start: 08/12/23 09:40 Freq: Status: Active Protocol: Activity Type Activity Date Activity User E-sign Co-sign Detail Recorded Client Recorded Date Recorded By Document 08/12/23 10:29 Desktop 08/12/23 10:41 GM 08/12/23 10:29 Wound Center Nurse 2 -Time 10:29 -Correct Patient Yes -Correct Side, Site, Position Yes -Correct Procedure Yes -Procedure Performed Yes -Type of Procedure Debridement -Clinical Debridement Subcutaneous -Tissue Removed Subcutaneous -Post Debridement (cm) - Length 10.0 -Post Debridement (cm) - Width 20.0 -Post Debridement (cm) - Depth 0.2 -Total Square (Post) (cm) 200.00 -Area of Debridement (cm) - Length 10.0 -Area of Debridement (cm) - Width 20.0 -Total Square (Area) (cm) 200.00 -Tunneling No -Undermining/Tunneling No -Circular Undermining No -Wound/Ulcer Outcome Not Healed -Ulcer Cleansing Rinsed/ Irrigated with Saline -Foul Odor after Cleansing No -Bioengineered Tissue No -Bleeding Controlled with Pressure -Treatment Response Procedure Tolerated Well -Debridement - Subq, 1st 20sq cm Yes -Debridement, SubQ, ea addt'l 20sq cm 9 or part thereof Pain Scale: 0-10 Numeric Is Patient Pain Free? Yes WC - Nurse 3 - General Ulcer D/C NN Start: 08/12/23 09:40 Freq: Status: Active Protocol: Activity Type Activity Date Activity User E-sign Co-sign Detail Recorded Client Recorded Date Recorded By Document 08/12/23 10:54 RB Desktop 08/12/23 10:55 RB Document 08/18/23 11:33 KW Desktop 08/18/23 11:34 KW Document 08/25/23 12:39 KW Desktop 08/25/23 12:40 KW 08/12/23 08/18/23 08/25/23 10:54 11:33 12:39 Wound Care Center Nurse 3 #18 Left medial LE cluster -Ulcer Cleansing Rinsed/ Rinsed/ Irrigated with Irrigated with Saline Saline -Primary Dressing Applied Optilok 8x12 Optilok 8x12 Optilok 8x12 -Other Dressing dakins moistened gauze -Primary Dressing Covered/Secured with Dry Gauze & Dry Gauze & Dry Gauze & Roll Gauze, Roll Gauze, Roll Gauze, Secured with Secured with Secured with Tape Tape Tape -Optilok 8x12 1 1 1 Right -Tubular Bandage Single Layer -Size of Tubigrip Used Size D -Size D ($) 1 Left -Tubular Bandage Single Layer Single Layer Single Layer -Size of Tubigrip Used Size D Size E Size D -Size D ($) 1 1 -Size E ($) 1 Treatment Response Procedure Tolerated Well Pain Scale: 0-10 Numeric Is Patient Pain Free? Yes Yes Yes WC - Visit Discharge Discharge Condition Stable Stable Ambulatory Status Ambulatory, Ambulatory, Walker Walker Transportation Private Auto Private Auto Medication Reconcilliation completed & No No provided to patient/care provider Clinical Summary of Care Provided Yes Yes Assessment/Plan Assessment/Plan (1) Lymphedema: CODE(S): I89.0 - Lymphedema, not elsewhere classified (2) Hypertension: CODE(S): I10 - Essential (primary) hypertension QUALIFIERS: Hypertension type: primary hypertension Qualified Code(s): I10 - Essential (primary) hypertension (3) Hyperlipidemia: CODE(S): E78.5 - Hyperlipidemia, unspecified (4) History of DVT (deep vein thrombosis): CODE(S): Z86.718 - Personal history of other venous thrombosis and embolism (5) Venous insufficiency (chronic) (peripheral): CODE(S): I87.2 - Venous insufficiency (chronic) (peripheral) (6) Venous ulcer of left lower extremity with varicose veins: CODE(S): I83.029 - Varicose veins of left lower extremity with ulcer of unspecified site (7) Edema: CODE(S): R60.9 - Edema, unspecified QUALIFIERS: Edema type: unspecified Qualified Code(s): R60.9 - Edema, unspecified PLAN: Plan Patient seen and evaluated Patient is seen in on behalf of Dr. Garcia for surgical debridement of the left lower extremity secondary to chronic nonhealing ulceration. I have reviewed patient's records of this ulceration extending back to November 2022. Patient has been seen by Dr. Carranza, Dr. Collado, and myself during hospital admission prior to his discharge on 12/09/2022. Patient is noted to be hypersensitive to pain and at that time did not tolerate dressing changes well with mechanical debridement via wet to dry. Patient's ulcerations were improving with elevation and compression therapy however following discharge back to facility does appear edema has returned with significant worsening of these ulcerative sites. Patient has been following with Dr. Garcia in the wound care center for weekly serial debridement. She states little improvement in ulcerative sites post Misonix ultrasonic debrider treatments. I have discussed with patient the need for an extensive sharp debridement followed by compressive therapy. Discussed with patient his hypersensitivity he does still need compression to the lower extremity or ulceration will not heal. He voices understanding of our discussion. Large left lower extremity circumferential ulceration with fibrotic tissue to the wound bed secondary to chronic venous insufficiency complicated by lymphedema. Wound measures 10 cm x 22 cm x 0.3 cm. No signs of infection. A sharp excisional debridement as noted in the clinical panel above was performed today under local anesthetic block of the left lower extremity. Extensive sharp tissue debridement was performed to a healthy bleeding granular layer removing all necrotic tissue, thick fibrous tissue, biofilm, slough. #7 curette utilized to perform the debridement. Following debridement a healthy, bleeding, viable tissue layer of granulation tissue remained. Dressing: Dakin's wet to dry dressing was applied to all ulcerative sites and covered with super absorb. Compression dressing applied today. I again discussed the need for adequate compression to be applied to promote healing of the ulceration. Offloading: I continue to recommend avoiding of pressure to the ulcerative site and to ensure legs do not rest against a recliner and legs are elevated to aid in edema control. Discussed avoiding prolonged standing or dangling of lower extremities over edge of chair or bed. Again stressed elevation of lower extremities at times of rest. I did discuss with him his proper diet to avoid excess sodium, to increase his protein intake, and to avoid high carbohydrate and sugary foods. Cultures: Previous cultures did demonstrate Pseudomonas sensitive to levofloxacin. He did finish oral antibiotic, levofloxacin on 08/16/2023. I discussed signs and symptoms of infection. Discussed with the patient if he notices redness about the ulcerative site moving up the leg or spreading about the leg, any purulent drainage from wound sites, increasing foul odor from the wound site, or a if he experiences fever greater than 101 degree, nausea, vomiting, chills/rigors, these are signs of a progressing infection and he needs to report to the ED to receive IV antibiotics. He voices understanding of this. He will return in 1 week to the wound care center with Dr. Garcia for continued wound care and possible application of an advanced wound care product.
== END 2023-09-08 23:59 | disposition home or self-care (01) ==
LOC: WC 11:30
PROVIDERS: PCP Family Medicine; Referring Provider Family Medicine; Visit Provider Family Medicine
DX: I83.029 Varicose veins of left lower extremity with ulcer of unspecified site (principal); L97.222 Non-pressure chronic ulcer of left calf with fat layer exposed; B96.5 Pseudomonas (aeruginosa) (mallei) (pseudomallei) as the cause of diseases classified elsewhere; I89.0 Lymphedema, not elsewhere classified; I10 Essential (primary) hypertension; E78.5 Hyperlipidemia, unspecified; Z86.718 Personal history of other venous thrombosis and embolism; I87.2 Venous insufficiency (chronic) (peripheral); R60.9 Edema, unspecified
CPT/HCPCS: 11042; 11045; 99213; G0463

== ENCOUNTER 2023-10-07 09:30 | Outpatient (RCR) | payer MEDICARE, OTHER, SELFPAY ==
[2023-09-09 00:19] VITALS: BP 155/95; PULSE 77; RESP 18; TEMP 35.9
[2023-09-23 10:18] VITALS: BP 131/71; PULSE 61; RESP 16; TEMP 36.1
--- NOTE | 2023-09-23 13:55 | PCM.WC.PN ---
History of Present Illness Date of Service: 09/23/23 Chief Complaint: venous ulcers of left lower extremity History of Wound: Mauricio is a 68 yo gentleman who is here today for evaluation of ulcers to to his bilateral lower legs. He has been treated multiple times in the past at the wound healing center for similar ulcers. The left LE ulcer started after he developed increased swelling and blisters of left leg in October and the right leg started sometime at the end of October. He was seen at PCP's office a culture was taken and it was resistant to several antibiotics. He was treated initially with Levaquin but had myalgias and then was treated with doxycycline which he finished 2 days ago. He denies improvement and is having swelling to his left calf and thigh. He has been having swelling to both lower extremities for many years and it has worsened over the last few months. He has not been compliant with compression. He has had increased pain especially in the left leg. He has clear yellow drainage and redness without odor or warmth. He is anti-coagulated on coumadin. He has been washing with Dial soap and witch ifrah. He had been using Collagen at times and using Calcium Alginate and covering with ABD pads during October. He was treated with 3M compression and Aquacel Ag. He was referred to the wound center for ongoing treatment. His ulcers have moderate to heavy drainage. He was recently hospitalized for cellulitis and edema for the last 10 days. He was in the hospital from 11/30/22 until 12/09/22 for treatment of cellulitis and edema. He underwent treatment with Vancomycin and IV lasix and compression. Discharged on 12/09/22. He returned to his assisted living apartment on Tuesday12/21/22. Subjective Subjective Patient is a 68-year-old male with longstanding history of chronic venous ulceration to the left lower extremity. He has not been seen for approx. 5 weeks. He was last seen by Dr. Sheppard for an extensive debridement which he did not tolerate well and then he developed COVID. He had problems with wet to dry Dakins gauze dressings last week and requested an allternative dressing which he has been using Aquacel Ag and tolerating treatment well. He continues to use super absorber for heavy drainage and size D Tubigrips for compression. 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 He continues to use his lymphedema pumps but continues to have pain with use of these pumps. Objective Data Objective Data Vital Signs: Vital Signs Temp Pulse Resp BP O2 Del Method 96.9 F L 61 16 131/71 H Room Air 09/23/23 10:18 09/23/23 10:18 09/23/23 10:18 09/23/23 10:18 09/23/23 10:18 Oxygen Delivery Method Room Air Physical Exam Const alert, oriented x3 and no apparent distress General Appearance: cooperative and comfortable HEENT normocephalic and head/scalp atraumatic Lymph Lymphatic: lymphedema moderate Resp normal respiratory effort Effort and Inspection: able to speak in complete sentences Cardio regular rate and regular rhythm Extremity General Extremity: edema bilateral lower extremity Details: severe Skin Wounds: wounds noted Wound Narrative: as in clinical panel Psych mental status grossly normal, thought process normal, cooperative and affect normal Debridement Note Debridement Note Wound debrided: left medial LE cluster Laterality: Left Type of Debridement: Excisional debridement Anesthesia Used: 4% Lidocaine Solution and 5% Lidocaine Gel Depth: Down to and including healthy tissue and in the subcutaneous layer Percentage of wound debrided: 100 Instrument Used: - (misonix ultrasonic debridement) Tissue Removed: Yellow slough, devitalized tissue Severity: Fat Layer Exposed Amount of bleeding with debridement: Mild Bleeding Controlled with: Compression and gauze Patient tolerated procedure: Patient tolerated procedure well Post-Debridement Measurements and Additional Note: Post-Debridement Measurements/Treatment - Nurse 1 - General Ulcer Assessment Start: 09/23/23 10:18 Freq: Status: Active Protocol: [email or web address] Activity Type Activity Date Activity User E-sign Co-sign Detail Recorded Client Recorded Date Recorded By Document 09/23/23 10:18 [facility] Desktop 09/23/23 10:29 [facility] 09/23/23 10:18 - Today's Visit Information Type of service Follow-up Visit (Physician/DIALYSIS BIOMED TECHNICIAN ) Arrival Mode Ambulatory, Walker Transfer Assistance None Patient Identification Verified (Name & Yes ) Patient Requires Transmission-Based No Precautions Vital Signs Temperature (97.8 F-99.1 F) 96.9 F L Temperature Source Temporal Pulse Rate (60-100) 61 Pulse Location Monitor Respiratory Rate (12-18) 16 Respiratory rate source Observation Oxygen Delivery Method Room Air Blood Pressure (90/60-120/80) 131/71 H Blood Pressure Mean (mm Hg) 91 Source Monitor Position Sitting Blood Pressure Location Right Forearm History Since Last Visit- (Skip if this is Patient's initial visit) Have you changed medications since your No last visit? Any new allergies or adverse reactions No Had a fall/change in ADL's that may No increase risk of falls Signs or symptoms of abuse and/or No neglect since last visit Have you been in the hospital since your No last visit? Has dressing in place as prescribed Yes Has compression in place as prescribed Yes Has offloadiing in place as prescribed N/A Experienced any changes in pain level or No management Left Footwear Regular Shoe Right Footwear Regular Shoe Pain Scale: 0-10 Numeric Is Patient Pain Free? Yes - Nurse 1 - General Ulcer Measurement Start: 09/23/23 10:18 Freq: Status: Active Protocol: Activity Type Activity Date Activity User E-sign Co-sign Detail Recorded Client Recorded Date Recorded By Document 09/23/23 10:18 [facility] Desktop 09/23/23 10:29 [facility] 09/23/23 10:18 Wound Center Nurse 1 #18 Left medial LE cluster -Combined with other wound No -Current Size (cm) - Length 11.5 -Current Size (cm) - Width 20.1 -Current Size (cm) - Depth 0.2 -Total Square Cm 231.15 -Epithelialization None Present -Tunneling No -Undermining/Tunneling No -Circular Undermining No -Exudate Amt Large -Exudate Type Serosanguineous -Wound Margin Distinct, Outline Attached -Granulation Amt Small (1-33%) -Granulation Quality Red -Slough/Fibrin Yes -Necrosis Amt Large (67-100%) -Necrotic Tissue Type Adherent Slough -Texture (Marie-wound Skin Appearance) Assessed, Scarring -Moisture (Marie-wound Skin Appearance) Assessed -Color (Marie-wound Skin Appearance) Assessed, Hemosiderin Staining -Temperature (Marie-wound Skin No Abnormality Appearance) (Pt Warm) -Tenderness on Palpation (Marie-wound No Skin Appearance) -Ulcer Cleansing Soap and Water -Foul Odor after Cleansing No -Anesthetic Used 4% Lidocaine Solution Lower Limb Edema Present Yes Left Calf (cm) 42.3 Left Ankle (cm) 29.1 WC - Nurse 2 - General Ulcer CM Notes Start: 09/23/23 10:18 Freq: Status: Active Protocol: Activity Type Activity Date Activity User E-sign Co-sign Detail Recorded Client Recorded Date Recorded By Document 09/23/23 10:52 [facility] Desktop 09/23/23 11:18 [facility] 09/23/23 10:52 Wound Center Nurse 2 #18 Left medial LE cluster -Time 10:57 -Correct Patient Yes -Correct Side, Site, Position Yes -Correct Procedure Yes -Procedure Performed Yes -Type of Procedure Debridement -Clinical Debridement Subcutaneous -Tissue Removed Subcutaneous -Post Debridement (cm) - Length 10.5 -Post Debridement (cm) - Width 17.0 -Post Debridement (cm) - Depth 0.2 -Total Square (Post) (cm) 178.50 -Area of Debridement (cm) - Length 10.5 -Area of Debridement (cm) - Width 17.0 -Total Square (Area) (cm) 178.50 -Tunneling No -Undermining/Tunneling No -Circular Undermining No -Wound/Ulcer Outcome Not Healed -Ulcer Cleansing Rinsed/ Irrigated with Saline -Foul Odor after Cleansing No -Bioengineered Tissue No -Bleeding Controlled with Pressure -Treatment Response Procedure Tolerated Well -Offloading No -Debridement - Subq, 1st 20sq cm Yes -Debridement, SubQ, ea addt'l 20sq cm 8 or part thereof Pain Scale: 0-10 Numeric Is Patient Pain Free? Yes - Nurse 3 - General Ulcer D/C NN Start: 09/23/23 10:18 Freq: Status: Active Protocol: Activity Type Activity Date Activity User E-sign Co-sign Detail Recorded Client Recorded Date Recorded By Document 09/23/23 11:25 Desktop 09/23/23 11:26 09/23/23 11:25 Wound Care Center Nurse 3 #18 Left medial LE cluster -Ulcer Cleansing Rinsed/ Irrigated with Saline -Primary Dressing Applied Aquacel AG 4x4, Optilok 8x12 -Primary Dressing Covered/Secured with Dry Gauze & Roll Gauze, Secured with Tape -Aquacel AG 4x4 2 -Optilok 8x12 1 Right -Tubular Bandage Single Layer -Size of Tubigrip Used Size D -Size D ($) 1 Left -Tubular Bandage Single Layer -Size of Tubigrip Used Size D -Size D ($) 1 Treatment Response Procedure Tolerated Well Pain Scale: 0-10 Numeric Is Patient Pain Free? Yes WC - Visit Discharge Discharge Condition Stable Ambulatory Status Ambulatory, Walker Transportation Private Auto Medication Reconcilliation completed & No provided to patient/care provider Clinical Summary of Care Provided Yes Assessment/Plan Assessment/Plan (1) Lymphedema: CODE(S): I89.0 - Lymphedema, not elsewhere classified (2) Hypertension: CODE(S): I10 - Essential (primary) hypertension QUALIFIERS: Hypertension type: primary hypertension Qualified Code(s): I10 - Essential (primary) hypertension (3) Hyperlipidemia: CODE(S): E78.5 - Hyperlipidemia, unspecified (4) History of DVT (deep vein thrombosis): CODE(S): Z86.718 - Personal history of other venous thrombosis and embolism (5) Venous insufficiency (chronic) (peripheral): CODE(S): I87.2 - Venous insufficiency (chronic) (peripheral) (6) Venous ulcer of left lower extremity with varicose veins: CODE(S): I83.029 - Varicose veins of left lower extremity with ulcer of unspecified site (7) Edema: CODE(S): R60.9 - Edema, unspecified QUALIFIERS: Edema type: unspecified Qualified Code(s): R60.9 - Edema, unspecified PLAN: Plan Debridement performed today in clinic as annotated above. At home wound-care instructions: Will continue to Aquacel Ag to ulcer and will cover with super absorber changed daily for heavy drainage. Continue compression with D tubigrips b/l. Off-loading: The patient was instructed to avoid pressure and friction on the affected areas. Reposition every 2 hours at minimum. Avoid prolonged standing and/or dangling of legs. When seated, feet should be elevated at chest level. Frequent ambulation is encouraged. Encouraged lymphedema pump use. Diet: Patient encouraged to increase protein intake while taking caution to avoid high carbohydrate and/or sugar intake. Labs/cultures/imaging: Wound culture showed 1+ Pseudomonas that is sensitive to Levofloxacin and will complete treatment on 08/16/23. Follow-up: Return in 1 week for wound care follow up and have secondary dressing changed by home health Tuesday and Tuesday. Return sooner or report to the emergency room should symptoms worsen, or new symptoms arise. Note: [employer] speech recognition technical writer and editor software was used to create portions of this document. Sound-alike and misspelled words, as well as other technical writer and editor errors may be contained in the documentation.
[2023-09-30 09:43] VITALS: BP 112/69; PULSE 76; RESP 18; TEMP 35.9
--- NOTE | 2023-09-30 12:24 | PN.PCM_ITS ---
History of Present Illness Date of Service: 09/30/23 Chief Complaint: venous ulcers of left lower extremity History of Wound: Mauricio is a 68 yo gentleman who is here today for evaluation of ulcers to to his bilateral lower legs. He has been treated multiple times in the past at the wound healing center for similar ulcers. The left LE ulcer started after he developed increased swelling and blisters of left leg in October and the right leg started sometime at the end of October. He was seen at PCP's office a culture was taken and it was resistant to several antibiotics. He was treated initially with Levaquin but had myalgias and then was treated with doxycycline which he finished 2 days ago. He denies improvement and is having swelling to his left calf and thigh. He has been having swelling to both lower extremities for many years and it has worsened over the last few months. He has not been compliant with compression. He has had increased pain especially in the left leg. He has clear yellow drainage and redness without odor or warmth. He is anti- coagulated on coumadin. He has been washing with Dial soap and witch ifrah. He had been using Collagen at times and using Calcium Alginate and covering with ABD pads during October. He was treated with 3M compression and Aquacel Ag. He was referred to the wound center for ongoing treatment. His ulcers have moderate to heavy drainage. He was recently hospitalized for cellulitis and edema for the last 10 days. He was in the hospital from 11/30/22 until 12/09/22 for treatment of cellulitis and edema. He underwent treatment with Vancomycin and IV lasix and compression. Discharged on 12/09/22. He returned to his assisted living apartment on Tuesday12/21/22. Subjective Subjective Patient is a 68-year-old male with longstanding history of chronic venous ulceration to the left lower extremity. He has been using Aquacel Ag and tolerating treatment well. He continues to use super absorber for heavy drainage and size D Tubigrips for compression. 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 He continues to use his lymphedema pumps but continues to have pain with use of these pumps. Objective Data Objective Data Vital Signs: Vital Signs Temp Pulse Resp BP O2 Del Method 96.6 F L 76 18 112/69 Room Air 09/30/23 09:43 09/30/23 09:43 09/30/23 09:43 09/30/23 09:43 09/30/23 09:43 Oxygen Delivery Method Room Air Physical Exam Const alert, oriented x3 and no apparent distress General Appearance: cooperative and comfortable HEENT normocephalic and head/scalp atraumatic Lymph Lymphatic: lymphedema moderate Resp normal respiratory effort Effort and Inspection: able to speak in complete sentences Cardio regular rate and regular rhythm Extremity General Extremity: edema bilateral lower extremity Details: severe Skin Wounds: wounds noted Wound Narrative: as in clinical panel Psych mental status grossly normal, thought process normal, cooperative and affect normal Debridement Note Debridement Note Wound debrided: left medial LE cluster Laterality: Left Type of Debridement: Excisional debridement Anesthesia Used: 4% Lidocaine Solution, 5% Lidocaine Gel and Cetacaine Depth: Down to and including healthy tissue and in the subcutaneous layer Percentage of wound debrided: 100 Instrument Used: 7mm curette Tissue Removed: Yellow slough, devitalized tissue Severity: Fat Layer Exposed Amount of bleeding with debridement: Mild Bleeding Controlled with: Compression and gauze Patient tolerated procedure: Patient tolerated procedure well Post-Debridement Measurements and Additional Note: Post-Debridement Measurements/Treatment - Nurse 1 - General Ulcer Assessment Start: 09/23/23 10:18 Freq: Status: Active Protocol: [email or web address] Activity Type Activity Date Activity User E-sign Co-sign Detail Recorded Client Recorded Date Recorded By Document 09/23/23 10:18 [facility] Desktop 09/23/23 10:29 [facility] Document 09/30/23 09:43 KW Desktop 09/30/23 09:55 KW 09/23/23 09/30/23 10:18 09:43 - Today's Visit Information Type of service Follow-up Visit Follow-up Visit (Physician/PHYTOPATHOLOGY TEACHER (Physician/PHYTOPATHOLOGY TEACHER ) ) Arrival Mode Ambulatory, Ambulatory, Walker Walker Transfer Assistance None Patient Identification Verified (Name & Yes Yes ) Patient Requires Transmission-Based No Precautions Vital Signs Temperature (97.8 F-99.1 F) 96.9 F L 96.6 F L Temperature Source Temporal Temporal Pulse Rate (60-100) 61 76 Pulse Location Monitor Monitor Respiratory Rate (12-18) 16 18 Respiratory rate source Observation Observation Oxygen Delivery Method Room Air Room Air Blood Pressure (90/60-120/80) 131/71 H 112/69 Blood Pressure Mean (mm Hg) 91 83 Source Monitor Monitor Position Sitting Semi-Fowlers Blood Pressure Location Right Forearm Right Arm History Since Last Visit- (Skip if this is Patient's initial visit) Have you changed medications since your No No last visit? Any new allergies or adverse reactions No No Had a fall/change in ADL's that may No No increase risk of falls Signs or symptoms of abuse and/or No No neglect since last visit Have you been in the hospital since your No No last visit? Has dressing in place as prescribed Yes Yes Has compression in place as prescribed Yes Yes Has offloadiing in place as prescribed N/A No Experienced any changes in pain level or No No management Left Footwear Regular Shoe Regular Shoe Right Footwear Regular Shoe Regular Shoe Pain Scale: 0-10 Numeric Is Patient Pain Free? Yes Yes WC - Nurse 1 - General Ulcer Measurement Start: 09/23/23 10:18 Freq: Status: Active Protocol: Activity Type Activity Date Activity User E-sign Co-sign Detail Recorded Client Recorded Date Recorded By Document 09/23/23 10:18 [facility] Desktop 09/23/23 10:29 [facility] Document 09/30/23 09:43 [facility] Desktop 09/30/23 09:55 KW 09/23/23 09/30/23 10:18 09:43 Wound Center Nurse 1 #18 Left medial LE cluster -Combined with other wound No -Current Size (cm) - Length 11.5 9.5 -Current Size (cm) - Width 20.1 23 -Current Size (cm) - Depth 0.2 0.2 -Total Square Cm 231.15 218.5 -Epithelialization None Present -Tunneling No -Undermining/Tunneling No -Circular Undermining No -Exudate Amt Large Large -Exudate Type Serosanguineous Serosanguineous -Wound Margin Distinct, Distinct, Outline Outline Attached Attached -Granulation Amt Small (1-33%) Small (1-33%) -Granulation Quality [place] -Slough/Fibrin Yes -Necrosis Amt Large (67-100%) Large (67-100%) -Necrotic Tissue Type Adherent Slough Adherent Slough -Texture (Marie-wound Skin Appearance) Assessed, Assessed Scarring -Moisture (Marie-wound Skin Appearance) Assessed Maceration, Weeping -Color (Marie-wound Skin Appearance) Assessed, Erythema Hemosiderin Staining -Temperature (Marie-wound Skin No Abnormality No Abnormality Appearance) (Pt Warm) (Pt Warm) -Tenderness on Palpation (Marie-wound No Skin Appearance) -Ulcer Cleansing Soap and Water Soap and Water -Foul Odor after Cleansing No -Anesthetic Used 4% Lidocaine 4% Lidocaine Solution Solution Lower Limb Edema Present Yes Left Calf (cm) 42.3 41.5 Left Ankle (cm) 29.1 29.5 WC - Nurse 2 - General Ulcer CM Notes Start: 09/23/23 10:18 Freq: Status: Active Protocol: Activity Type Activity Date Activity User E-sign Co-sign Detail Recorded Client Recorded Date Recorded By Document 09/23/23 10:52 [facility] Desktop 09/23/23 11:18 MW 09/23/23 10:52 Wound Center Nurse 2 #18 Left medial LE cluster -Time 10:57 -Correct Patient Yes -Correct Side, Site, Position Yes -Correct Procedure Yes -Procedure Performed Yes -Type of Procedure Debridement -Clinical Debridement Subcutaneous -Tissue Removed Subcutaneous -Post Debridement (cm) - Length 10.5 -Post Debridement (cm) - Width 17.0 -Post Debridement (cm) - Depth 0.2 -Total Square (Post) (cm) 178.50 -Area of Debridement (cm) - Length 10.5 -Area of Debridement (cm) - Width 17.0 -Total Square (Area) (cm) 178.50 -Tunneling No -Undermining/Tunneling No -Circular Undermining No -Wound/Ulcer Outcome Not Healed -Ulcer Cleansing Rinsed/ Irrigated with Saline -Foul Odor after Cleansing No -Bioengineered Tissue No -Bleeding Controlled with Pressure -Treatment Response Procedure Tolerated Well -Offloading No -Debridement - Subq, 1st 20sq cm Yes -Debridement, SubQ, ea addt'l 20sq cm 8 or part thereof Pain Scale: 0-10 Numeric Is Patient Pain Free? Yes WC - Nurse 3 - General Ulcer D/C NN Start: 09/23/23 10:18 Freq: Status: Active Protocol: Activity Type Activity Date Activity User E-sign Co-sign Detail Recorded Client Recorded Date Recorded By Document 09/23/23 11:25 [facility] Desktop 09/23/23 11:26 [facility] Document 09/30/23 10:37 K[facility] Desktop 09/30/23 10:38 KW 09/23/23 09/30/23 11:25 10:37 Wound Care Center Nurse 3 #18 Left medial LE cluster -Ulcer Cleansing Rinsed/ Irrigated with Saline -Primary Dressing Applied Aquacel AG 4x4, Aquacel AG 4x4, Optilok 8x12 Optilok 8x12 -Primary Dressing Covered/Secured with Dry Gauze & Dry Gauze & Roll Gauze, Roll Gauze, Secured with Secured with Tape Tape -Aquacel AG 4x4 2 2 -Optilok 8x12 1 1 Right -Tubular Bandage Single Layer -Size of Tubigrip Used Size D -Size D ($) 1 Left -Tubular Bandage Single Layer Single Layer -Size of Tubigrip Used Size D Size D -Size D ($) 1 1 Treatment Response Procedure Tolerated Well Pain Scale: 0-10 Numeric Is Patient Pain Free? Yes Yes WC - Visit Discharge Discharge Condition Stable Stable Ambulatory Status Ambulatory, Walker Walker Transportation Private Auto Private Auto Medication Reconcilliation completed & No No provided to patient/care provider Clinical Summary of Care Provided Yes Yes Assessment/Plan Assessment/Plan (1) Lymphedema: CODE(S): I89.0 - Lymphedema, not elsewhere classified (2) Hypertension: CODE(S): I10 - Essential (primary) hypertension QUALIFIERS: Hypertension type: primary hypertension Qualified Code(s): I10 - Essential (primary) hypertension (3) Hyperlipidemia: CODE(S): E78.5 - Hyperlipidemia, unspecified QUALIFIERS: Hyperlipidemia type: mixed hyperlipidemia Qualified Code(s): E78.2 - Mixed hyperlipidemia (4) History of DVT (deep vein thrombosis): CODE(S): Z86.718 - Personal history of other venous thrombosis and embolism (5) Venous insufficiency (chronic) (peripheral): CODE(S): I87.2 - Venous insufficiency (chronic) (peripheral) (6) Venous ulcer of left lower extremity with varicose veins: CODE(S): I83.029 - Varicose veins of left lower extremity with ulcer of unspecified site (7) Edema: CODE(S): R60.9 - Edema, unspecified QUALIFIERS: Edema type: unspecified Qualified Code(s): R60.9 - Edema, unspecified PLAN: Plan Debridement performed today in clinic as annotated above. At home wound-care instructions: Will continue to Aquacel Ag to ulcer and will cover with super absorber changed daily for heavy drainage. Continue compression with D tubigrips b/l. Off-loading: The patient was instructed to avoid pressure and friction on the affected areas. Reposition every 2 hours at minimum. Avoid prolonged standing and/or dangling of legs. When seated, feet should be elevated at chest level. Fr equent ambulation is encouraged. Encouraged lymphedema pump use. Diet: Patient encouraged to increase protein intake while taking caution to avoid high carbohydrate and/or sugar intake. Labs/cultures/imaging: Wound culture showed 1+ Pseudomonas that is sensitive to Levofloxacin and completed treatment on 08/16/23. Follow-up: Return in 1 week for wound care follow up and have secondary dressing changed by home health Tuesday and Tuesday. Return sooner or report to the emergency room should symptoms worsen, or new symptoms arise. Note: [employer] speech recognition family practice physician software was used to create portions of this document. Sound-alike and misspelled words, as well as other family practice physician errors may be contained in the documentation.
[2023-10-07 09:22] VITALS: BP 115/76; PULSE 78; RESP 18; TEMP 35.7
--- NOTE | 2023-10-07 12:20 | PCM.WC.PN ---
History of Present Illness Date of Service: 10/07/23 Chief Complaint: venous ulcers of left lower extremity History of Wound: Mauricio is a 68 yo gentleman who is here today for evaluation of ulcers to to his bilateral lower legs. He has been treated multiple times in the past at the wound healing center for similar ulcers. The left LE ulcer started after he developed increased swelling and blisters of left leg in October and the right leg started sometime at the end of October. He was seen at PCP's office a culture was taken and it was resistant to several antibiotics. He was treated initially with Levaquin but had myalgias and then was treated with doxycycline which he finished 2 days ago. He denies improvement and is having swelling to his left calf and thigh. He has been having swelling to both lower extremities for many years and it has worsened over the last few months. He has not been compliant with compression. He has had increased pain especially in the left leg. He has clear yellow drainage and redness without odor or warmth. He is anti-coagulated on coumadin. He has been washing with Dial soap and witch ifrah. He had been using Collagen at times and using Calcium Alginate and covering with ABD pads during October. He was treated with 3M compression and Aquacel Ag. He was referred to the wound center for ongoing treatment. His ulcers have moderate to heavy drainage. He was recently hospitalized for cellulitis and edema for the last 10 days. He was in the hospital from 11/30/22 until 12/09/22 for treatment of cellulitis and edema. He underwent treatment with Vancomycin and IV lasix and compression. Discharged on 12/09/22. He returned to his assisted living apartment on Tuesday12/21/22. Subjective Subjective Patient is a 68-year-old male with longstanding history of chronic venous ulceration to the left lower extremity. He has been using Aquacel Ag and tolerating treatment well. He continues to use super absorber for heavy drainage and size D Tubigrips for compression. 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 He continues to use his lymphedema pumps but continues to have pain with use of these pumps. Objective Data Objective Data Vital Signs: Vital Signs Temp Pulse Resp BP O2 Del Method 96.2 F L 78 18 115/76 Room Air 10/07/23 09:22 10/07/23 09:22 10/07/23 09:22 10/07/23 09:22 10/07/23 09:22 Oxygen Delivery Method Room Air Physical Exam Const alert, oriented x3 and no apparent distress General Appearance: cooperative and comfortable HEENT normocephalic and head/scalp atraumatic Lymph Lymphatic: lymphedema moderate Resp normal respiratory effort Effort and Inspection: able to speak in complete sentences Cardio regular rate and regular rhythm Extremity General Extremity: edema bilateral lower extremity Details: severe Skin Wounds: wounds noted Wound Narrative: as in clinical panel Psych mental status grossly normal, thought process normal, cooperative and affect normal Debridement Note Debridement Note Wound debrided: left medial LE cluster Laterality: Left Type of Debridement: Excisional debridement Anesthesia Used: 4% Lidocaine Solution, 5% Lidocaine Gel and Cetacaine Depth: Down to and including healthy tissue and in the subcutaneous layer Percentage of wound debrided: 100 Instrument Used: 7mm curette Tissue Removed: Yellow slough, devitalized tissue Severity: Fat Layer Exposed Amount of bleeding with debridement: Mild Bleeding Controlled with: Compression and gauze Patient tolerated procedure: Patient tolerated procedure well Post-Debridement Measurements and Additional Note: Post-Debridement Measurements/Treatment - Nurse 1 - General Ulcer Assessment Start: 09/23/23 10:18 Freq: Status: Active Protocol: ONDINA Activity Type Activity Date Activity User E-sign Co-sign Detail Recorded Client Recorded Date Recorded By Document 09/23/23 10:18 [facility] Desktop 09/23/23 10:29 [facility] Document 09/30/23 09:43 KW Desktop 09/30/23 09:55 KW Document 10/07/23 09:22 KW Desktop 10/07/23 09:27 KW 09/23/23 09/30/23 10/07/23 10:18 09:43 09:22 - Today's Visit Information Type of service Follow-up Visit Follow-up Visit Follow-up Visit (Physician/HIGHWAY WORKER (Physician/HIGHWAY WORKER (Physician/HIGHWAY WORKER ) ) ) Arrival Mode Ambulatory, Ambulatory, Ambulatory, Walker Walker Walker Transfer Assistance None Patient Identification Verified (Name & Yes Yes Yes ) Patient Requires Transmission-Based No Precautions Vital Signs Temperature (97.8 F-99.1 F) 96.9 F L 96.6 F L 96.2 F L Temperature Source Temporal Temporal Temporal Pulse Rate (60-100) 61 76 78 Pulse Location Monitor Monitor Monitor Respiratory Rate (12-18) 16 18 18 Respiratory rate source Observation Observation Observation Oxygen Delivery Method Room Air Room Air Room Air Blood Pressure (90/60-120/80) 131/71 H 112/69 115/76 Blood Pressure Mean (mm Hg) 91 83 89 Source Monitor Monitor Monitor Position Sitting Semi-Fowlers Semi-Fowlers Blood Pressure Location Right Forearm Right Arm Right Arm History Since Last Visit- (Skip if this is Patient's initial visit) Have you changed medications since your No No No last visit? Any new allergies or adverse reactions No No No Had a fall/change in ADL's that may No No No increase risk of falls Signs or symptoms of abuse and/or No No No neglect since last visit Have you been in the hospital since your No No No last visit? Has dressing in place as prescribed Yes Yes Yes Has compression in place as prescribed Yes Yes Yes Has offloadiing in place as prescribed N/A No No Experienced any changes in pain level or No No No management Left Footwear Regular Shoe Regular Shoe Regular Shoe Right Footwear Regular Shoe Regular Shoe Pain Scale: 0-10 Numeric Is Patient Pain Free? Yes Yes Yes WC - Nurse 1 - General Ulcer Measurement Start: 09/23/23 10:18 Freq: Status: Active Protocol: Activity Type Activity Date Activity User E-sign Co-sign Detail Recorded Client Recorded Date Recorded By Document 09/23/23 10:18 [facility] Desktop 09/23/23 10:29 [facility] Document 09/30/23 09:43 KW Desktop 09/30/23 09:55 KW Document 10/07/23 09:22 KW Desktop 10/07/23 09:27 KW 09/23/23 09/30/23 10/07/23 10:18 09:43 09:22 Wound Center Nurse 1 #18 Left medial LE cluster -Combined with other wound No -Current Size (cm) - Length 11.5 9.5 11.7 -Current Size (cm) - Width 20.1 23 20.5 -Current Size (cm) - Depth 0.2 0.2 0.3 -Total Square Cm 231.15 218.5 239.85 -Epithelialization None Present -Tunneling No -Undermining/Tunneling No -Circular Undermining No -Exudate Amt Large Large Large -Exudate Type Serosanguineous Serosanguineous Purulent -Wound Margin Distinct, Distinct, Distinct, Outline Outline Outline Attached Attached Attached -Granulation Amt Small (1-33%) Small (1-33%) Medium (34-66%) -Granulation Quality Red [place] Red -Slough/Fibrin Yes -Necrosis Amt Large (67-100%) Large (67-100%) Small (1-33%) -Necrotic Tissue Type Adherent Slough Adherent Slough Adherent Slough -Texture (Marie-wound Skin Appearance) Assessed, Assessed Assessed Scarring -Moisture (Marie-wound Skin Appearance) Assessed Maceration, Assessed,Dry/ Weeping Scaly -Color (Marie-wound Skin Appearance) Assessed, Erythema Assessed, Hemosiderin Erythema Staining -Temperature (Marie-wound Skin No Abnormality No Abnormality No Abnormality Appearance) (Pt Warm) (Pt Warm) (Pt Warm) -Tenderness on Palpation (Marie-wound No Skin Appearance) -Ulcer Cleansing Soap and Water Soap and Water Rinsed/ Irrigated with Saline -Foul Odor after Cleansing No No -Anesthetic Used 4% Lidocaine 4% Lidocaine 4% Lidocaine Solution Solution Solution Lower Limb Edema Present Yes Left Calf (cm) 42.3 41.5 42.5 Left Ankle (cm) 29.1 29.5 29.5 WC - Nurse 2 - General Ulcer CM Notes Start: 09/23/23 10:18 Freq: Status: Active Protocol: Activity Type Activity Date Activity User E-sign Co-sign Detail Recorded Client Recorded Date Recorded By Document 09/23/23 10:52 MW [facility] 09/23/23 11:18 MW Document 09/30/23 12:24 PL [id number] 09/30/23 12:26 PL Document 10/07/23 09:52 Desktop 10/07/23 10:10 GM 09/23/23 09/30/23 10/07/23 10:52 12:24 09:52 Wound Center Nurse 2 #18 Left medial LE cluster -Time 10:57 10:02 09:52 -Correct Patient Yes Yes Yes -Correct Side, Site, Position Yes Yes Yes -Correct Procedure Yes Yes Yes -Procedure Performed Yes Yes Yes -Type of Procedure Debridement Debridement Debridement -Clinical Debridement Subcutaneous Subcutaneous Subcutaneous -Tissue Removed Subcutaneous Subcutaneous Subcutaneous -Post Debridement (cm) - Length 10.5 11.7 11 -Post Debridement (cm) - Width 17.0 20.0 18 -Post Debridement (cm) - Depth 0.2 0.2 0.2 -Total Square (Post) (cm) 178.50 234.00 198 -Area of Debridement (cm) - Length 10.5 11.7 11 -Area of Debridement (cm) - Width 17.0 20.0 18 -Total Square (Area) (cm) 178.50 234.00 198 -Tunneling No No No -Undermining/Tunneling No No No -Circular Undermining No No No -Wound/Ulcer Outcome Not Healed Not Healed Not Healed -Ulcer Cleansing Rinsed/ Rinsed/ Rinsed/ Irrigated with Irrigated with Irrigated with Saline Saline Saline -Foul Odor after Cleansing No No No -Bioengineered Tissue No No No -Bleeding Controlled with Pressure Pressure Pressure -Treatment Response Procedure Procedure Procedure Tolerated Well Tolerated Well Tolerated Well -Offloading No -Debridement - Subq, 1st 20sq cm Yes Yes Yes -Debridement, SubQ, ea addt'l 20sq cm 8 11 9 or part thereof Pain Scale: 0-10 Numeric Is Patient Pain Free? Yes Yes Yes WC - Nurse 3 - General Ulcer D/C NN Start: 09/23/23 10:18 Freq: Status: Active Protocol: Activity Type Activity Date Activity User E-sign Co-sign Detail Recorded Client Recorded Date Recorded By Document 09/23/23 11:25 RB Desktop 09/23/23 11:26 RB Document 09/30/23 10:37 KW Desktop 09/30/23 10:38 KW Document 10/07/23 10:17 KW Desktop 10/07/23 10:19 KW 09/23/23 09/30/23 10/07/23 11:25 10:37 10:17 Wound Care Center Nurse 3 #18 Left medial LE cluster -Ulcer Cleansing Rinsed/ Rinsed/ Irrigated with Irrigated with Saline Saline -Primary Dressing Applied Aquacel AG 4x4, Aquacel AG 4x4, Aquacel Extra, Optilok 8x12 Optilok 8x12 Optilok 8x12 -Primary Dressing Covered/Secured with Dry Gauze & Dry Gauze & Dry Gauze & Roll Gauze, Roll Gauze, Roll Gauze, Secured with Secured with Secured with Tape Tape Tape -Aquacel Extra 2 -Aquacel AG 4x4 2 2 -Optilok 8x12 1 1 1 Right -Tubular Bandage Single Layer -Size of Tubigrip Used Size D -Size D ($) 1 Left -Tubular Bandage Single Layer Single Layer -Size of Tubigrip Used Size D Size D Size D -Size D ($) 1 1 Treatment Response Procedure Tolerated Well Pain Scale: 0-10 Numeric Is Patient Pain Free? Yes Yes Yes WC - Visit Discharge Discharge Condition Stable Stable Stable Ambulatory Status Ambulatory, Walker Ambulatory, Walker Walker Transportation Private Auto Private Auto Private Auto Medication Reconcilliation completed & No No No provided to patient/care provider Clinical Summary of Care Provided Yes Yes Yes Assessment/Plan Assessment/Plan (1) Lymphedema: CODE(S): I89.0 - Lymphedema, not elsewhere classified (2) Hypertension: CODE(S): I10 - Essential (primary) hypertension QUALIFIERS: Hypertension type: primary hypertension Qualified Code(s): I10 - Essential (primary) hypertension (3) Hyperlipidemia: CODE(S): E78.5 - Hyperlipidemia, unspecified QUALIFIERS: Hyperlipidemia type: mixed hyperlipidemia Qualified Code(s): E78.2 - Mixed hyperlipidemia (4) History of DVT (deep vein thrombosis): CODE(S): Z86.718 - Personal history of other venous thrombosis and embolism (5) Venous insufficiency (chronic) (peripheral): CODE(S): I87.2 - Venous insufficiency (chronic) (peripheral) (6) Venous ulcer of left lower extremity with varicose veins: CODE(S): I83.029 - Varicose veins of left lower extremity with ulcer of unspecified site (7) Edema: CODE(S): R60.9 - Edema, unspecified QUALIFIERS: Edema type: unspecified Qualified Code(s): R60.9 - Edema, unspecified PLAN: Plan Debridement performed today in clinic as annotated above. At home wound-care instructions: Will continue to use Aquacel Ag to ulcer and will cover with super absorber changed daily for heavy drainage. Continue compression with D tubigrips b/l. Due to the delayed progress in wound healing of his venous ulcers, we discussed applying for advanced wound healing product for healing his ulcer. Due to the size of his ulcer, [employer] application approval is being requested from his insurance as it is medically necessary for salvaging his limb and healing his ulcer. Off-loading: The patient was instructed to avoid pressure and friction on the affected areas. Reposition every 2 hours at minimum. Avoid prolonged standing and/or dangling of legs. When seated, feet should be elevated at chest level. Frequent ambulation is encouraged. Encouraged lymphedema pump use. Diet: Patient encouraged to increase protein intake while taking caution to avoid high carbohydrate and/or sugar intake. Labs/cultures/imaging: Wound culture showed 1+ Pseudomonas that is sensitive to Levofloxacin and completed treatment on 08/16/23. Follow-up: Return in 1 week for wound care follow up and have secondary dressing changed by home health Tuesday and Tuesday. Return sooner or report to the emergency room should symptoms worsen, or new symptoms arise. Note: [employer] speech recognition tooth clerk software was used to create portions of this document. Sound-alike and misspelled words, as well as other tooth clerk errors may be contained in the documentation.
== END 2023-10-09 23:59 | disposition home or self-care (01) ==
LOC: WC 09:30
PROVIDERS: PCP Family Medicine; Referring Provider Family Medicine; Visit Provider Family Medicine
DX: I83.028 Varicose veins of left lower extremity with ulcer other part of lower leg (principal); L97.822 Non-pressure chronic ulcer of other part of left lower leg with fat layer exposed; M79.605 Pain in left leg; M79.10 Myalgia, unspecified site; I89.0 Lymphedema, not elsewhere classified; I10 Essential (primary) hypertension; E78.5 Hyperlipidemia, unspecified; Z86.718 Personal history of other venous thrombosis and embolism; I87.2 Venous insufficiency (chronic) (peripheral); R60.9 Edema, unspecified; I83.812 Varicose veins of left lower extremity with pain; I83.892 Varicose veins of left lower extremity with other complications
CPT/HCPCS: 11042; 11045

== ENCOUNTER 2023-11-04 09:45 | Outpatient (RCR) | payer MEDICARE, OTHER, SELFPAY ==
[2023-10-10 00:14] VITALS: BP 115/76; PULSE 78; RESP 18; TEMP 35.7
[2023-10-14 08:42] VITALS: BP 124/76; PULSE 72; RESP 18; TEMP 35.7
--- NOTE | 2023-10-14 12:31 | PN.PCM_ITS ---
History of Present Illness Date of Service: 10/14/23 Chief Complaint: venous ulcers of left lower extremity History of Wound: Mauricio is a 68 yo gentleman who is here today for evaluation of ulcers to to his bilateral lower legs. He has been treated multiple times in the past at the wound healing center for similar ulcers. The left LE ulcer started after he developed increased swelling and blisters of left leg in October and the right leg started sometime at the end of October. He was seen at PCP's office a culture was taken and it was resistant to several antibiotics. He was treated initially with Levaquin but had myalgias and then was treated with doxycycline which he finished 2 days ago. He denies improvement and is having swelling to his left calf and thigh. He has been having swelling to both lower extremities for many years and it has worsened over the last few months. He has not been compliant with compression. He has had increased pain especially in the left leg. He has clear yellow drainage and redness without odor or warmth. He is anti- coagulated on coumadin. He has been washing with Dial soap and witch ifrah. He had been using Collagen at times and using Calcium Alginate and covering with ABD pads during October. He was treated with 3M compression and Aquacel Ag. He was referred to the wound center for ongoing treatment. His ulcers have moderate to heavy drainage. He was recently hospitalized for cellulitis and edema for the last 10 days. He was in the hospital from 11/30/22 until 12/09/22 for treatment of cellulitis and edema. He underwent treatment with Vancomycin and IV lasix and compression. Discharged on 12/09/22. He returned to his assisted living apartment on Tuesday12/21/22. Subjective Subjective Patient is a 68-year-old male with longstanding history of chronic venous ulceration to the left lower extremity. He has been using Aquacel Ag and tolerating treatment well. He continues to use super absorber for heavy drainage and size D Tubigrips for compression. 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 He continues to use his lymphedema pumps but continues to have pain with use of these pumps. Objective Data Objective Data Vital Signs: Vital Signs Temp Pulse Resp BP 96.3 F L 72 18 124/76 H 10/14/23 08:42 10/14/23 08:42 10/14/23 08:42 10/14/23 08:42 Physical Exam Const alert, oriented x3 and no apparent distress General Appearance: cooperative and comfortable HEENT normocephalic and head/scalp atraumatic Lymph Lymphatic: lymphedema moderate Resp normal respiratory effort Effort and Inspection: able to speak in complete sentences Cardio regular rate and regular rhythm Extremity General Extremity: edema bilateral lower extremity Details: severe Skin Wounds: wounds noted Wound Narrative: as in clinical panel Psych mental status grossly normal, thought process normal, cooperative and affect normal Debridement Note Debridement Note Wound debrided: left medial LE cluster Laterality: Left Type of Debridement: Excisional debridement Anesthesia Used: 4% Lidocaine Solution, 5% Lidocaine Gel and Cetacaine Depth: Down to and including healthy tissue and in the subcutaneous layer Percentage of wound debrided: 100 Instrument Used: 7mm curette Tissue Removed: Yellow slough, devitalized tissue Severity: Fat Layer Exposed Amount of bleeding with debridement: Mild Bleeding Controlled with: Compression and gauze Patient tolerated procedure: Patient tolerated procedure well Post-Debridement Measurements and Additional Note: Post-Debridement Measurements/Treatment [facility] Nurse 1 - General Ulcer Assessment Start: 10/14/23 08:41 Freq: Status: Active Protocol: DEBBIE.LOWDIPIKAT Activity Type Activity Date Activity User E-sign Co-sign Detail Recorded Client Recorded Date Recorded By Document 10/14/23 08:42 Desktop 10/14/23 08:51 10/14/23 08:42 - Today's Visit Information Type of service 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 Any new allergies or adverse reactions No Had a fall/change in ADL's that may No increase risk of falls Signs or symptoms of abuse and/or No neglect since last visit Have you been in the hospital since your No last visit? Has dressing in place as prescribed Yes Has compression in place as prescribed Yes Has offloadiing in place as prescribed No Experienced any changes in pain level or No management Pain Scale: 0-10 Numeric Is Patient Pain Free? No LLE and left arm -Description Sharp -Intensity 6 -Duration (hours) Chronic -Pain Behavior Withdrawal from Touch -Pain Aggravating Factors ADL's,Walking -Alleviating Factors/Interventions Medication -Effectiveness of Alleviating Factor/ Minimally Intervention effective WC - Nurse 1 - General Ulcer Measurement Start: 10/14/23 08:41 Freq: Status: Active Protocol: Activity Type Activity Date Activity User E-sign Co-sign Detail Recorded Client Recorded Date Recorded By Document 10/14/23 08:42 RB Desktop 10/14/23 08:51 RB 10/14/23 08:42 Wound Center Nurse 1 #18 Left medial LE cluster -Combined with other wound No -Current Size (cm) - Length 8 -Current Size (cm) - Width 21.5 -Current Size (cm) - Depth 0.2 -Total Square Cm 172.0 -Tunneling No -Undermining/Tunneling No -Circular Undermining No -Exudate Amt Large -Exudate Type Serosanguineous -Wound Margin Distinct, Outline Attached -Granulation Amt Medium (34-66%) -Granulation Quality [place],Red -Slough/Fibrin Yes -Necrosis Amt Medium (34-66%) -Necrotic Tissue Type Adherent Slough -Structure Exposed N/A -Texture (Marie-wound Skin Appearance) Assessed -Moisture (Marie-wound Skin Appearance) Assessed -Color (Marie-wound Skin Appearance) Hemosiderin Staining -Temperature (Marie-wound Skin No Abnormality Appearance) (Pt Warm) -Tenderness on Palpation (Marie-wound No Skin Appearance) -Ulcer Cleansing Wound Cleanser -Foul Odor after Cleansing No -Anesthetic Used 4% Lidocaine Solution Lower Limb Edema Present Yes Left Calf (cm) 41.5 Left Ankle (cm) 29.5 WC - Nurse 2 - General Ulcer CM Notes Start: 10/14/23 08:41 Freq: Status: Active Protocol: Activity Type Activity Date Activity User E-sign Co-sign Detail Recorded Client Recorded Date Recorded By Document 10/14/23 08:49 [id number] 10/14/23 09:59 GM 10/14/23 08:49 Wound Center Nurse 2 #18 Left medial LE cluster -Time 09:04 -Correct Patient Yes -Correct Side, Site, Position Yes -Correct Procedure Yes -Procedure Performed Yes -Type of Procedure Debridement -Clinical Debridement Subcutaneous -Tissue Removed Subcutaneous -Tunneling No -Undermining/Tunneling No -Circular Undermining No -Wound/Ulcer Outcome Not Healed -Ulcer Cleansing Rinsed/ Irrigated with Saline -Foul Odor after Cleansing No -Bioengineered Tissue Yes -Type of Bioengineered Tissue Theraskin -Expiration Date 01/17/28 -Product Lot Number [id number] -Percent Used 100 -Lot number of Saline Used [id number] -Bleeding Controlled with Pressure -Treatment Response Procedure Tolerated Well -Debridement - Subq, 1st 20sq cm No -Apply Skin Sub - 1st 100 sq cm - Legs 1 -Apply Skin Sub - each addt'l 100 sq 1 cm - Legs -Theraskin (per sq cm) 116 Pain Scale: 0-10 Numeric Is Patient Pain Free? Yes - Nurse 3 - General Ulcer D/C NN Start: 10/14/23 08:41 Freq: Status: Active Protocol: Activity Type Activity Date Activity User E-sign Co-sign Detail Recorded Client Recorded Date Recorded By Document 10/14/23 09:46 KW Desktop 10/14/23 09:47 KW 10/14/23 09:46 Wound Care Center Nurse 3 #18 Left medial LE cluster -Primary Dressing Applied Optilok 8x12 -Primary Dressing Covered/Secured with Dry Gauze & Roll Gauze, Secured with Tape -Optilok 8x12 1 Pain Scale: 0-10 Numeric Is Patient Pain Free? Yes - Visit Discharge Discharge Condition Stable Ambulatory Status Ambulatory, Walker Transportation Private Auto Medication Reconcilliation completed & No provided to patient/care provider Clinical Summary of Care Provided Yes Assessment/Plan Assessment/Plan (1) Lymphedema: CODE(S): I89.0 - Lymphedema, not elsewhere classified (2) Hypertension: CODE(S): I10 - Essential (primary) hypertension QUALIFIERS: Hypertension type: primary hypertension Qualified Code(s): I10 - Essential (primary) hypertension (3) Hyperlipidemia: CODE(S): E78.5 - Hyperlipidemia, unspecified QUALIFIERS: Hyperlipidemia type: mixed hyperlipidemia Qualified Code(s): E78.2 - Mixed hyperlipidemia (4) History of DVT (deep vein thrombosis): CODE(S): Z86.718 - Personal history of other venous thrombosis and embolism (5) Venous insufficiency (chronic) (peripheral): CODE(S): I87.2 - Venous insufficiency (chronic) (peripheral) (6) Venous ulcer of left lower extremity with varicose veins: CODE(S): I83.029 - Varicose veins of left lower extremity with ulcer of unspecified site (7) Edema: CODE(S): R60.9 - Edema, unspecified QUALIFIERS: Edema type: unspecified Qualified Code(s): R60.9 - Edema, unspecified PLAN: Plan Debridement performed today in clinic as annotated above. At home wound-care instructions: Theraskin applied today to 80% of the left lower leg ulcer using 100% of a 7.6 cm x 15.24 cm Theraskin product. This was secured with Dermabond to the edges of the Theraskin skin graft and then covered with wound veil and secured with steri-strips. Continue compression with D tubigrips b/l. Due to the delayed progress in wound healing of his venous ulcers, we discussed applying for advanced wound healing product for healing his ulcer. Due to the size of his ulcer, Theraskin application approval is being requested from his insurance as it is medically necessary for salvaging his limb and healing his ulcer. This was approved for 1 application. Off-loading: The patient was instructed to avoid pressure and friction on the affected areas. Reposition every 2 hours at minimum. Avoid prolonged standing and/or dangling of legs. When seated, feet should be elevated at chest level. Frequent ambulation is encouraged. Encouraged lymphedema pump use. Diet: Patient encouraged to increase protein intake while taking caution to avoid high carbohydrate and/or sugar intake. Labs/cultures/imaging: Wound culture showed 1+ Pseudomonas that is sensitive to Levofloxacin and completed treatment on 08/16/23. Follow-up: Return in 1 week for wound care follow up and have secondary dressing changed by home health Tuesday and Tuesday. Return sooner or report to the emergency room should symptoms worsen, or new symptoms arise. Note: Setgo speech recognition hospital administrator software was used to create portions of this document. Sound-alike and misspelled words, as well as other hospital administrator errors may be contained in the documentation.
[2023-10-21 09:30] VITALS: BP 138/83; PULSE 66; RESP 18; TEMP 35.2
--- NOTE | 2023-10-21 13:33 | PN.PCM_ITS ---
History of Present Illness Date of Service: 10/21/23 Chief Complaint: venous ulcers of left lower extremity History of Wound: Mauricio is a 68 yo gentleman who is here today for evaluation of ulcers to to his bilateral lower legs. He has been treated multiple times in the past at the wound healing center for similar ulcers. The left LE ulcer started after he developed increased swelling and blisters of left leg in October and the right leg started sometime at the end of October. He was seen at PCP's office a culture was taken and it was resistant to several antibiotics. He was treated initially with Levaquin but had myalgias and then was treated with doxycycline which he finished 2 days ago. He denies improvement and is having swelling to his left calf and thigh. He has been having swelling to both lower extremities for many years and it has worsened over the last few months. He has not been compliant with compression. He has had increased pain especially in the left leg. He has clear yellow drainage and redness without odor or warmth. He is anti- coagulated on coumadin. He has been washing with Dial soap and witch ifrah. He had been using Collagen at times and using Calcium Alginate and covering with ABD pads during October. He was treated with 3M compression and Aquacel Ag. He was referred to the wound center for ongoing treatment. His ulcers have moderate to heavy drainage. He was recently hospitalized for cellulitis and edema for the last 10 days. He was in the hospital from 11/30/22 until 12/09/22 for treatment of cellulitis and edema. He underwent treatment with Vancomycin and IV lasix and compression. Discharged on 12/09/22. He returned to his assisted living apartment on Tuesday12/21/22. Subjective Subjective Patient is a 68-year-old male with longstanding history of chronic venous ulceration to the left lower extremity. He has been using Aquacel Extra and tolerating treatment well. Theraskin is intact and steri-strips and wound veil are also intact. He reports decreased drainage. He continues to use super absorber for heavy drainage and size D Tubigrips for compression. 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 He continues to use his lymphedema pumps but continues to have pain with use of these pumps. Objective Data Objective Data Vital Signs: Vital Signs Temp Pulse Resp BP O2 Del Method 95.4 F L 66 18 138/83 H Room Air 10/21/23 09:30 10/21/23 09:30 10/21/23 09:30 10/21/23 09:30 10/21/23 09:30 Oxygen Delivery Method Room Air Physical Exam Const alert, oriented x3 and no apparent distress General Appearance: cooperative and comfortable HEENT normocephalic and head/scalp atraumatic Lymph Lymphatic: lymphedema moderate Resp normal respiratory effort Effort and Inspection: able to speak in complete sentences Cardio regular rate and regular rhythm Extremity General Extremity: edema bilateral lower extremity Details: severe Skin Wounds: wounds noted Wound Narrative: as in clinical panel Psych mental status grossly normal, thought process normal, cooperative and affect normal Debridement Note Debridement Note Wound debrided: left medial LE cluster Patient tolerated procedure: Patient tolerated procedure well Debridement Free Text: A 23G 1 needle was used to penetrate the theraskin and wound veil and stimulate bleeding throughout the Theraskin application site. No debridement was completed: No debridement was completed today Post-Debridement Measurements and Additional Note: Post-Debridement Measurements/Treatment - Nurse 1 - General Ulcer Assessment Start: 10/14/23 08:41 Freq: Status: Active Protocol: WC.LOWDIPIKAT Activity Type Activity Date Activity User E-sign Co-sign Detail Recorded Client Recorded Date Recorded By Document 10/14/23 08:42 RB Desktop 10/14/23 08:51 RB Document 10/21/23 09:30 KW Desktop 10/21/23 09:36 KW 10/14/23 10/21/23 08:42 09:30 - Today's Visit Information Type of service Follow-up Visit Follow-up Visit (Physician/ACID CONDITIONING WORKER (Physician/ACID CONDITIONING WORKER ) ) Arrival Mode Ambulatory Ambulatory, Walker Transfer Assistance None Patient Identification Verified (Name & Yes Yes ) Patient Requires Transmission-Based No Precautions Vital Signs Temperature (97.8 F-99.1 F) 96.3 F L 95.4 F L Temperature Source Temporal Temporal Pulse Rate (60-100) 72 66 Pulse Location Monitor Monitor Respiratory Rate (12-18) 18 18 Respiratory rate source Observation Observation Oxygen Delivery Method Room Air Blood Pressure (90/60-120/80) 124/76 H 138/83 H Blood Pressure Mean (mm Hg) 92 101 Source Monitor Monitor Position Semi-Fowlers Semi-Fowlers Blood Pressure Location Left Arm Left Arm History Since Last Visit- (Skip if this is Patient's initial visit) Have you changed medications since your No No last visit? Any new allergies or adverse reactions No No Had a fall/change in ADL's that may No No increase risk of falls Signs or symptoms of abuse and/or No No neglect since last visit Have you been in the hospital since your No No last visit? Has dressing in place as prescribed Yes Yes Has compression in place as prescribed Yes Yes Has offloadiing in place as prescribed No No Experienced any changes in pain level or No No management Left Footwear Regular Shoe Right Footwear Regular Shoe Pain Scale: 0-10 Numeric Is Patient Pain Free? No Yes LLE and left arm -Description Sharp -Intensity 6 -Duration (hours) Chronic -Pain Behavior Withdrawal from Touch -Pain Aggravating Factors ADL's,Walking -Alleviating Factors/Interventions Medication -Effectiveness of Alleviating Factor/ Minimally Intervention effective WC - Nurse 1 - General Ulcer Measurement Start: 10/14/23 08:41 Freq: Status: Active Protocol: Activity Type Activity Date Activity User E-sign Co-sign Detail Recorded Client Recorded Date Recorded By Document 10/14/23 08:42 RB Desktop 10/14/23 08:51 RB Document 10/21/23 09:30 KW Desktop 10/21/23 09:36 KW 10/14/23 10/21/23 08:42 09:30 Wound Center Nurse 1 #18 Left medial LE cluster -Combined with other wound No -Current Size (cm) - Length 8 -Current Size (cm) - Width 21.5 -Current Size (cm) - Depth 0.2 -Total Square Cm 172.0 -Tunneling No -Undermining/Tunneling No -Circular Undermining No -Exudate Amt Large -Exudate Type Serosanguineous -Wound Margin Distinct, Outline Attached -Granulation Amt Medium (34-66%) -Granulation Quality [place],Red -Slough/Fibrin Yes -Necrosis Amt Medium (34-66%) -Necrotic Tissue Type Adherent Slough -Structure Exposed N/A -Texture (Marie-wound Skin Appearance) Assessed -Moisture (Marie-wound Skin Appearance) Assessed -Color (Marie-wound Skin Appearance) Hemosiderin Staining -Temperature (Marie-wound Skin No Abnormality Appearance) (Pt Warm) -Tenderness on Palpation (Marie-wound No Skin Appearance) -Ulcer Cleansing Wound Cleanser Soap and Water -Foul Odor after Cleansing No -Anesthetic Used 4% Lidocaine Solution -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) Wound not messured d/t theraskin intact. Lower Limb Edema Present Yes Left Calf (cm) 41.5 40.5 Left Ankle (cm) 29.5 29 WC - Nurse 2 - General Ulcer CM Notes Start: 10/14/23 08:41 Freq: Status: Active Protocol: Activity Type Activity Date Activity User E-sign Co-sign Detail Recorded Client Recorded Date Recorded By Document 10/14/23 08:49 GM [id number] 10/14/23 09:59 GM Document 10/21/23 09:50 GM Desktop 10/21/23 09:58 GM 10/14/23 10/21/23 08:49 09:50 Wound Center Nurse 2 #18 Left medial LE cluster -Time 09:04 09:50 -Correct Patient Yes Yes -Correct Side, Site, Position Yes Yes -Correct Procedure Yes Yes -Procedure Performed Yes No -Type of Procedure Debridement -Clinical Debridement Subcutaneous -Tissue Removed Subcutaneous -Tunneling No No -Undermining/Tunneling No No -Circular Undermining No No -Wound/Ulcer Outcome Not Healed Not Healed -Ulcer Cleansing Rinsed/ Not Cleansed Irrigated with Saline -Foul Odor after Cleansing No -Bioengineered Tissue Yes -Type of Bioengineered Tissue Theraskin -Expiration Date 01/17/28 -Product Lot Number [id number] -Percent Used 100 -Lot number of Saline Used [id number] -Bleeding Controlled with Pressure -Treatment Response Procedure Tolerated Well -Debridement - Subq, 1st 20sq cm No -Apply Skin Sub - 1st 100 sq cm - Legs 1 -Apply Skin Sub - each addt'l 100 sq 1 cm - Legs -Theraskin (per sq cm) 116 Pain Scale: 0-10 Numeric Is Patient Pain Free? Yes Yes WC - Nurse 3 - General Ulcer D/C NN Start: 10/14/23 08:41 Freq: Status: Active Protocol: Activity Type Activity Date Activity User E-sign Co-sign Detail Recorded Client Recorded Date Recorded By Document 10/14/23 09:46 KW Desktop 10/14/23 09:47 KW Document 10/21/23 10:14 RB Desktop 10/21/23 10:15 RB 10/14/23 10/21/23 09:46 10:14 Wound Care Center Nurse 3 #18 Left medial LE cluster -Primary Dressing Applied Optilok 8x12 Aquacel Extra, Optilok 8x12 -Other Dressing abd -Primary Dressing Covered/Secured with Dry Gauze & Dry Gauze & Roll Gauze, Roll Gauze, Secured with Secured with Tape Tape -Aquacel Extra 2 -Optilok 8x12 1 1 Right -Tubular Bandage Single Layer -Size of Tubigrip Used Size D -Size D ($) 1 Left -Tubular Bandage Single Layer -Size of Tubigrip Used Size D -Size D ($) 1 Treatment Response Procedure Tolerated Well Pain Scale: 0-10 Numeric Is Patient Pain Free? Yes No WC - Visit Discharge Discharge Condition Stable Stable Ambulatory Status Ambulatory, Ambulatory, Walker Walker Transportation Private Auto Private Auto Medication Reconcilliation completed & No No provided to patient/care provider Clinical Summary of Care Provided Yes Yes Assessment/Plan Assessment/Plan (1) Lymphedema: CODE(S): I89.0 - Lymphedema, not elsewhere classified (2) Hypertension: CODE(S): I10 - Essential (primary) hypertension QUALIFIERS: Hypertension type: primary hypertension Qualified Code(s): I10 - Essential (primary) hypertension (3) Hyperlipidemia: CODE(S): E78.5 - Hyperlipidemia, unspecified QUALIFIERS: Hyperlipidemia type: mixed hyperlipidemia Qualified Code(s): E78.2 - Mixed hyperlipidemia (4) History of DVT (deep vein thrombosis): CODE(S): Z86.718 - Personal history of other venous thrombosis and embolism (5) Venous insufficiency (chronic) (peripheral): CODE(S): I87.2 - Venous insufficiency (chronic) (peripheral) (6) Venous ulcer of left lower extremity with varicose veins: CODE(S): I83.029 - Varicose veins of left lower extremity with ulcer of unspecified site (7) Edema: CODE(S): R60.9 - Edema, unspecified QUALIFIERS: Edema type: unspecified Qualified Code(s): R60.9 - Edema, unspecified PLAN: Plan Evaluation and perforation of Theraskin graft performed today in clinic as annotated above. At home wound-care instructions: Theraskin application intact. Keep clean and dry. Continue compression with D tubigrips b/l. Due to the delayed progress in wound healing of his venous ulcers, we discussed applying for advanced wound healing product for healing his ulcer. Due to the size of his ulcer, Theraskin application approval is being requested from his insurance as it is medically necessary for salvaging his limb and healing his ulcer. This was approved for 1 application. Off-loading: The patient was instructed to avoid pressure and friction on the affected areas. Reposition every 2 hours at minimum. Avoid prolonged standing and/or dangling of legs. When seated, feet should be elevated at chest level. Frequent ambulation is encouraged. Encouraged lymphedema pump use. Diet: Patient encouraged to increase protein intake while taking caution to avoid high carbohydrate and/or sugar intake. Labs/cultures/imaging: Wound culture showed 1+ Pseudomonas that is sensitive to Levofloxacin and completed treatment on 08/16/23. Follow-up: Return in 1 week for wound care follow up and have secondary dressing changed by home health Tuesday and Tuesday. Return sooner or report to the emergency room should symptoms worsen, or new symptoms arise. Note: Open[employer] speech recognition [employer] conservation laborer software was used to create p ortions of this document. Sound-alike and misspelled words, as well as other [employer] conservation laborer errors may be contained in the documentation.
[2023-10-28 10:43] VITALS: BP 156/86; PULSE 69; RESP 18; TEMP 36.4
--- NOTE | 2023-10-28 12:41 | PN.PCM_ITS ---
History of Present Illness Date of Service: 10/28/23 Chief Complaint: venous ulcers of left lower extremity History of Wound: Mauricio is a 68 yo gentleman who is here today for evaluation of ulcers to to his bilateral lower legs. He has been treated multiple times in the past at the wound healing center for similar ulcers. The left LE ulcer started after he developed increased swelling and blisters of left leg in October and the right leg started sometime at the end of October. He was seen at PCP's office a culture was taken and it was resistant to several antibiotics. He was treated initially with Levaquin but had myalgias and then was treated with doxycycline which he finished 2 days ago. He denies improvement and is having swelling to his left calf and thigh. He has been having swelling to both lower extremities for many years and it has worsened over the last few months. He has not been compliant with compression. He has had increased pain especially in the left leg. He has clear yellow drainage and redness without odor or warmth. He is anti- coagulated on coumadin. He has been washing with Dial soap and witch ifrah. He had been using Collagen at times and using Calcium Alginate and covering with ABD pads during October. He was treated with 3M compression and Aquacel Ag. He was referred to the wound center for ongoing treatment. His ulcers have moderate to heavy drainage. He was recently hospitalized for cellulitis and edema for the last 10 days. He was in the hospital from 11/30/22 until 12/09/22 for treatment of cellulitis and edema. He underwent treatment with Vancomycin and IV lasix and compression. Discharged on 12/09/22. He returned to his assisted living apartment on Tuesday12/21/22. Subjective Subjective Mauricio is a 68-year-old male with longstanding history of chronic venous ulceration to the left lower extremity. He has been using Aquacel Extra and tolerating treatment well. Theraskin remained intact and steri-strips and wound veil were also intact for the 2 week duration of application. He reports significantly decreased drainage. Upon removal of Theraskin today there has been improved depth and appearance of the ulcer as well as decrease in size. He continues to use super absorber for heavy drainage and size D Tubigrips for compression. 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 He continues to use his lymphedema pumps but continues to have pain with use of these pumps. Objective Data Objective Data Vital Signs: Vital Signs Temp Pulse Resp BP O2 Del Method 97.6 F L 69 18 156/86 H Room Air 10/28/23 10:43 10/28/23 10:43 10/28/23 10:43 10/28/23 10:43 10/28/23 10:43 Oxygen Delivery Method Room Air Physical Exam Const alert, oriented x3 and no apparent distress General Appearance: cooperative and comfortable HEENT normocephalic and head/scalp atraumatic Lymph Lymphatic: lymphedema moderate Resp normal respiratory effort Effort and Inspection: able to speak in complete sentences Cardio regular rate and regular rhythm Extremity General Extremity: edema bilateral lower extremity Details: severe Skin Wounds: wounds noted Wound Narrative: as in clinical panel Psych mental status grossly normal, thought process normal, cooperative and affect normal Debridement Note Debridement Note Wound debrided: left medial LE ulcer Laterality: Left Type of Debridement: Excisional debridement Anesthesia Used: 4% Lidocaine Solution and Cetacaine Depth: Down to and including healthy tissue and in the subcutaneous layer Percentage of wound debrided: 100 Instrument Used: 5mm curette Tissue Removed: Yellow slough, devitalized tissue Severity: Fat Layer Exposed Amount of bleeding with debridement: Mild Bleeding Controlled with: Compression and gauze Patient tolerated procedure: Patient tolerated procedure well Post-Debridement Measurements and Additional Note: Post-Debridement Measurements/Treatment - Nurse 1 - General Ulcer Assessment Start: 10/14/23 08:41 Freq: Status: Active Protocol: ONDINA Activity Type Activity Date Activity User E-sign Co-sign Detail Recorded Client Recorded Date Recorded By Document 10/14/23 08:42 RB Desktop 10/14/23 08:51 RB Document 10/21/23 09:30 KW Desktop 10/21/23 09:36 KW Document 10/28/23 10:43 Desktop 10/28/23 10:54 10/14/23 10/21/23 10/28/23 08:42 09:30 10:43 - Today's Visit Information Type of service Follow-up Visit Follow-up Visit Follow-up Visit (Physician/VIDEO SOFTWARE ENGINEER (Physician/VIDEO SOFTWARE ENGINEER (Physician/VIDEO SOFTWARE ENGINEER ) ) ) Arrival Mode Ambulatory Ambulatory, Ambulatory, Walker Walker Transfer Assistance None None Patient Identification Verified (Name & Yes Yes Yes ) Patient Requires Transmission-Based No No Precautions Vital Signs Temperature (97.8 F-99.1 F) 96.3 F L 95.4 F L 97.6 F L Temperature Source Temporal Temporal Temporal Pulse Rate (60-100) 72 66 69 Pulse Location Monitor Monitor Monitor Respiratory Rate (12-18) 18 18 18 Respiratory rate source Observation Observation Observation Oxygen Delivery Method Room Air Room Air Blood Pressure (90/60-120/80) 124/76 H 138/83 H 156/86 H Blood Pressure Mean (mm Hg) 92 101 109 Source Monitor Monitor Monitor Position Semi-Fowlers Semi-Fowlers Sitting Blood Pressure Location Left Arm Left Arm Right Arm History Since Last Visit- (Skip if this is Patient's initial visit) Have you changed medications since your No No No last visit? Any new allergies or adverse reactions No No No Had a fall/change in ADL's that may No No No increase risk of falls Signs or symptoms of abuse and/or No No No neglect since last visit Have you been in the hospital since your No No No last visit? Has dressing in place as prescribed Yes Yes Yes Has compression in place as prescribed Yes Yes Yes Has offloadiing in place as prescribed No No No Experienced any changes in pain level or No No No management Left Footwear Regular Shoe Regular Shoe Right Footwear Regular Shoe Regular Shoe Pain Scale: 0-10 Numeric Is Patient Pain Free? No Yes Yes LLE and left arm -Description Sharp -Intensity 6 -Duration (hours) Chronic -Pain Behavior Withdrawal from Touch -Pain Aggravating Factors ADL's,Walking -Alleviating Factors/Interventions Medication -Effectiveness of Alleviating Factor/ Minimally Intervention effective WC - Nurse 1 - General Ulcer Measurement Start: 10/14/23 08:41 Freq: Status: Active Protocol: Activity Type Activity Date Activity User E-sign Co-sign Detail Recorded Client Recorded Date Recorded By Document 10/14/23 08:42 RB Desktop 10/14/23 08:51 RB Document 10/21/23 09:30 KW Desktop 10/21/23 09:36 KW Document 10/28/23 10:43 GM Desktop 10/28/23 10:54 GM 10/14/23 10/21/23 10/28/23 08:42 09:30 10:43 Wound Center Nurse 1 #18 Left medial LE cluster -Combined with other wound No -Current Size (cm) - Length 8 0.1 -Current Size (cm) - Width 21.5 0.1 -Current Size (cm) - Depth 0.2 0.1 -Total Square Cm 172.0 0.01 -Epithelialization Small 1-33% -Tunneling No No -Undermining/Tunneling No No -Circular Undermining No No -Exudate Amt Large Large -Exudate Type Serosanguineous Yellow/Green -Wound Margin Distinct, Distinct, Outline Outline Attached Attached -Granulation Amt Medium (34-66%) Large (67-100%) -Granulation Quality [place],Red Red -Slough/Fibrin Yes -Necrosis Amt Medium (34-66%) Medium (34-66%) -Necrotic Tissue Type Adherent Slough Adherent Slough -Structure Exposed N/A N/A -Texture (Marie-wound Skin Appearance) Assessed Assessed -Moisture (Marie-wound Skin Appearance) Assessed Assessed -Color (Marie-wound Skin Appearance) Hemosiderin Assessed Staining -Temperature (Marie-wound Skin No Abnormality Appearance) (Pt Warm) -Tenderness on Palpation (Marie-wound No Skin Appearance) -Ulcer Cleansing Wound Cleanser Soap and Water -Foul Odor after Cleansing No -Anesthetic Used 4% Lidocaine Solution -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) Wound not messured d/t theraskin intact. Lower Limb Edema Present Yes Left Calf (cm) 41.5 40.5 40.3 Left Ankle (cm) 29.5 29 29.2 WC - Nurse 2 - General Ulcer CM Notes Start: 10/14/23 08:41 Freq: Status: Active Protocol: Activity Type Activity Date Activity User E-sign Co-sign Detail Recorded Client Recorded Date Recorded By Document 10/14/23 08:49 [id number] 10/14/23 09:59 Document 10/21/23 09:50 Desktop 10/21/23 09:58 10/14/23 10/21/23 08:49 09:50 Wound Center Nurse 2 #18 Left medial LE cluster -Time 09:04 09:50 -Correct Patient Yes Yes -Correct Side, Site, Position Yes Yes -Correct Procedure Yes Yes -Procedure Performed Yes No -Type of Procedure Debridement -Clinical Debridement Subcutaneous -Tissue Removed Subcutaneous -Tunneling No No -Undermining/Tunneling No No -Circular Undermining No No -Wound/Ulcer Outcome Not Healed Not Healed -Ulcer Cleansing Rinsed/ Not Cleansed Irrigated with Saline -Foul Odor after Cleansing No -Bioengineered Tissue Yes -Type of Bioengineered Tissue Theraskin -Expiration Date 01/17/28 -Product Lot Number [id number] -Percent Used 100 -Lot number of Saline Used [id number] -Bleeding Controlled with Pressure -Treatment Response Procedure Tolerated Well -Debridement - Subq, 1st 20sq cm No -Apply Skin Sub - 1st 100 sq cm - Legs 1 -Apply Skin Sub - each addt'l 100 sq 1 cm - Legs -Theraskin (per sq cm) 116 Pain Scale: 0-10 Numeric Is Patient Pain Free? Yes Yes - Nurse 3 - General Ulcer D/C NN Start: 10/14/23 08:41 Freq: Status: Active Protocol: Activity Type Activity Date Activity User E-sign Co-sign Detail Recorded Client Recorded Date Recorded By Document 10/14/23 09:46 KW Desktop 10/14/23 09:47 KW Document 10/21/23 10:14 Desktop 10/21/23 10:15 RB 10/14/23 10/21/23 09:46 10:14 Wound Care Center Nurse 3 #18 Left medial LE cluster -Primary Dressing Applied Optilok 8x12 Aquacel Extra, Optilok 8x12 -Other Dressing abd -Primary Dressing Covered/Secured with Dry Gauze & Dry Gauze & Roll Gauze, Roll Gauze, Secured with Secured with Tape Tape -Aquacel Extra 2 -Optilok 8x12 1 1 Right -Tubular Bandage Single Layer -Size of Tubigrip Used Size D -Size D ($) 1 Left -Tubular Bandage Single Layer -Size of Tubigrip Used Size D -Size D ($) 1 Treatment Response Procedure Tolerated Well Pain Scale: 0-10 Numeric Is Patient Pain Free? Yes No WC - Visit Discharge Discharge Condition Stable Stable Ambulatory Status Ambulatory, Ambulatory, Walker Walker Transportation Private Auto Private Auto Medication Reconcilliation completed & No No provided to patient/care provider Clinical Summary of Care Provided Yes Yes Assessment/Plan Assessment/Plan (1) Lymphedema: CODE(S): I89.0 - Lymphedema, not elsewhere classified (2) Hypertension: CODE(S): I10 - Essential (primary) hypertension QUALIFIERS: Hypertension type: primary hypertension Qualified Code(s): I10 - Essential (primary) hypertension (3) Hyperlipidemia: CODE(S): E78.5 - Hyperlipidemia, unspecified QUALIFIERS: Hyperlipidemia type: mixed hyperlipidemia Qualified Code(s): E78.2 - Mixed hyperlipidemia (4) History of DVT (deep vein thrombosis): CODE(S): Z86.718 - Personal history of other venous thrombosis and embolism (5) Venous insufficiency (chronic) (peripheral): CODE(S): I87.2 - Venous insufficiency (chronic) (peripheral) (6) Venous ulcer of left lower extremity with varicose veins: CODE(S): I83.029 - Varicose veins of left lower extremity with ulcer of unspecified site (7) Edema: CODE(S): R60.9 - Edema, unspecified QUALIFIERS: Edema type: unspecified Qualified Code(s): R60.9 - Edema, unspecified PLAN: Plan Evaluation and excisional debridement of left medial LE ulcer performed today in clinic as annotated above. At home wound-care instructions: Theraskin #1 application was tolerated well and showed a decrease in the size area of the ulcer. The day of application on 10/14/23 the ulcer measured 214 square cm and today the ulcer measured 162.45 square cm. This is a 24% decrease in the square cm area of the ulcer from the application of the Theraskin skin graft. Due to meeting and exceeding the goal of therapy of a 20% reduction in the square cm area of the ulcer, the decision to apply a second application of Theraskin to the ulcer was made with the goal of an additional 20% reduction in the size of the ulcer which would be a minimum area of 129.96 square cm in 2 weeks. Theraskin #2 was applied to the ulcer today. The Theraskin product was thawed and 100% of the product was applied to the ulcer which covered roughly 90% of the ulcer. The Theraskin was secured with dermabond to the edges of the ulcer and then covered with wound veil and secured with steri-strips. The patient was advised to keep the dressings intact and clean and dry. Continue compression with D tubigrips b/l. Due to the delayed progress in wound healing of his venous ulcers, we discussed applying for advanced wound healing product for healing his ulcer. Due to the size of his ulcer, Theraskin application approval is being requested from his insurance as it is medically necessary for salvaging his limb and healing his ulcer. This was approved for 1 application and if goal of 20% reduction in size is met then additional application will be approved. Off-loading: The patient was instructed to avoid pressure and friction on the affected areas. Reposition every 2 hours at minimum. Avoid prolonged standing and/or dangling of legs. When seated, feet should be elevated at chest level. Frequent ambulation is encouraged. Encouraged lymphedema pump use. Diet: Patient encouraged to increase protein intake while taking caution to avoid high carbohydrate and/or sugar intake. Labs/cultures/imaging: Wound culture showed 1+ Pseudomonas that is sensitive to Levofloxacin and completed treatment on 08/16/23. Follow-up: Return in 1 week for wound care follow up and have secondary dressing changed by home health Tuesday and Tuesday. Return sooner or report to the emergency room should symptoms worsen, or new symptoms arise. Note: [employer] speech recognition manager transplant software was used to create portions of this document. Sound-alike and misspelled words, as well as other manager transplant errors may be contained in the documentation.
[2023-11-04 09:19] VITALS: BP 135/78; PULSE 70; RESP 18; TEMP 35.3
--- NOTE | 2023-11-04 12:52 | PN.PCM_ITS ---
History of Present Illness Date of Service: 11/04/23 Chief Complaint: venous ulcers of left lower extremity History of Wound: Mauricio is a 68 yo gentleman who is here today for evaluation of ulcers to to his bilateral lower legs. He has been treated multiple times in the past at the wound healing center for similar ulcers. The left LE ulcer started after he developed increased swelling and blisters of left leg in October and the right leg started sometime at the end of October. He was seen at PCP's office a culture was taken and it was resistant to several antibiotics. He was treated initially with Levaquin but had myalgias and then was treated with doxycycline which he finished 2 days ago. He denies improvement and is having swelling to his left calf and thigh. He has been having swelling to both lower extremities for many years and it has worsened over the last few months. He has not been compliant with compression. He has had increased pain especially in the left leg. He has clear yellow drainage and redness without odor or warmth. He is anti- coagulated on coumadin. He has been washing with Dial soap and witch ifrah. He had been using Collagen at times and using Calcium Alginate and covering with ABD pads during October. He was treated with 3M compression and Aquacel Ag. He was referred to the wound center for ongoing treatment. His ulcers have moderate to heavy drainage. He was recently hospitalized for cellulitis and edema for the last 10 days. He was in the hospital from 11/30/22 until 12/09/22 for treatment of cellulitis and edema. He underwent treatment with Vancomycin and IV lasix and compression. Discharged on 12/09/22. He returned to his assisted living apartment on Tuesday12/21/22. Subjective Subjective Mauricio is a 68-year-old male with longstanding history of chronic venous ulceration to the left lower extremity. He has been using Aquacel Extra and tolerating treatment well. Theraskin remained intact and steri-strips and wound veil were also intact. He reports significantly decreased drainage. He continues to use super absorber for heavy drainage and size D Tubigrips for compression. 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 He continues to use his lymphedema pumps but continues to have pain with use of these pumps. Objective Data Objective Data Vital Signs: Vital Signs Temp Pulse Resp BP O2 Del Method 95.6 F L 70 18 135/78 H Room Air 11/04/23 09:19 11/04/23 09:19 11/04/23 09:19 11/04/23 09:19 11/04/23 09:19 Oxygen Delivery Method Room Air Physical Exam Const alert, oriented x3 and no apparent distress General Appearance: cooperative and comfortable HEENT normocephalic and head/scalp atraumatic Lymph Lymphatic: lymphedema moderate Resp normal respiratory effort Effort and Inspection: able to speak in complete sentences Cardio regular rate and regular rhythm Extremity General Extremity: edema bilateral lower extremity Details: severe Skin Wounds: wounds noted Wound Narrative: as in clinical panel Psych mental status grossly normal, thought process normal, cooperative and affect normal Debridement Note Debridement Note Wound debrided: left medial LE ulcer Laterality: Left Amount of bleeding with debridement: Mild Bleeding Controlled with: Compression and gauze Patient tolerated procedure: Patient tolerated procedure well Debridement Free Text: 25 G 1 syringe needle used to penetrate wound veil and theraskin and induce bleeding. Patient tolerated procedure well. Post-Debridement Measurements and Additional Note: Post-Debridement Measurements/Treatment - Nurse 1 - General Ulcer Assessment Start: 10/14/23 08:41 Freq: Status: Active Protocol: ONDINA Activity Type Activity Date Activity User E-sign Co-sign Detail Recorded Client Recorded Date Recorded By Document 10/14/23 08:42 RB Desktop 10/14/23 08:51 RB Document 10/21/23 09:30 KW Desktop 10/21/23 09:36 KW Document 10/28/23 10:43 Desktop 10/28/23 10:54 Document 11/04/23 09:19 KW Desktop 11/04/23 09:36 KW 10/14/23 10/21/23 10/28/23 08:42 09:30 10:43 - Today's Visit Information Type of service Follow-up Visit Follow-up Visit Follow-up Visit (Physician/WELDER PIPE MAKING (Physician/WELDER PIPE MAKING (Physician/WELDER PIPE MAKING ) ) ) Arrival Mode Ambulatory Ambulatory, Ambulatory, Walker Walker Transfer Assistance None None Patient Identification Verified (Name & Yes Yes Yes ) Patient Requires Transmission-Based No No Precautions Vital Signs Temperature (97.8 F-99.1 F) 96.3 F L 95.4 F L 97.6 F L Temperature Source Temporal Temporal Temporal Pulse Rate (60-100) 72 66 69 Pulse Location Monitor Monitor Monitor Respiratory Rate (12-18) 18 18 18 Respiratory rate source Observation Observation Observation Oxygen Delivery Method Room Air Room Air Blood Pressure (90/60-120/80) 124/76 H 138/83 H 156/86 H Blood Pressure Mean (mm Hg) 92 101 109 Source Monitor Monitor Monitor Position Semi-Fowlers Semi-Fowlers Sitting Blood Pressure Location Left Arm Left Arm Right Arm History Since Last Visit- (Skip if this is Patient's initial visit) Have you changed medications since your No No No last visit? Any new allergies or adverse reactions No No No Had a fall/change in ADL's that may No No No increase risk of falls Signs or symptoms of abuse and/or No No No neglect since last visit Have you been in the hospital since your No No No last visit? Has dressing in place as prescribed Yes Yes Yes Has compression in place as prescribed Yes Yes Yes Has offloadiing in place as prescribed No No No Experienced any changes in pain level or No No No management Left Footwear Regular Shoe Regular Shoe Right Footwear Regular Shoe Regular Shoe Pain Scale: 0-10 Numeric Is Patient Pain Free? No Yes Yes LLE and left arm -Description Sharp -Intensity 6 -Duration (hours) Chronic -Pain Behavior Withdrawal from Touch -Pain Aggravating Factors ADL's,Walking -Alleviating Factors/Interventions Medication -Effectiveness of Alleviating Factor/ Minimally Intervention effective 11/04/23 09:19 WC - Today's Visit Information Type of service Follow-up Visit (Physician/WELDER PIPE MAKING ) Arrival Mode Ambulatory, Walker Transfer Assistance Patient Identification Verified (Name & Yes ) Patient Requires Transmission-Based Precautions Vital Signs Temperature (97.8 F-99.1 F) 95.6 F L Temperature Source Temporal Pulse Rate (60-100) 70 Pulse Location Monitor Respiratory Rate (12-18) 18 Respiratory rate source Observation Oxygen Delivery Method Room Air Blood Pressure (90/60-120/80) 135/78 H Blood Pressure Mean (mm Hg) 97 Source Monitor Position Semi-Fowlers Blood Pressure Location Right Forearm History Since Last Visit- (Skip if this is Patient's initial visit) Have you changed medications since your No last visit? Any new allergies or adverse reactions No Had a fall/change in ADL's that may No increase risk of falls Signs or symptoms of abuse and/or No neglect since last visit Have you been in the hospital since your No last visit? Has dressing in place as prescribed Yes Has compression in place as prescribed Yes Has offloadiing in place as prescribed N/A Experienced any changes in pain level or No management Left Footwear Regular Shoe Right Footwear Regular Shoe Pain Scale: 0-10 Numeric Is Patient Pain Free? Yes LLE and left arm -Description -Intensity -Duration (hours) -Pain Behavior -Pain Aggravating Factors -Alleviating Factors/Interventions -Effectiveness of Alleviating Factor/ Intervention WC - Nurse 1 - General Ulcer Measurement Start: 10/14/23 08:41 Freq: Status: Active Protocol: Activity Type Activity Date Activity User E-sign Co-sign Detail Recorded Client Recorded Date Recorded By Document 10/14/23 08:42 RB Desktop 10/14/23 08:51 RB Document 10/21/23 09:30 KW Desktop 10/21/23 09:36 KW Document 10/28/23 10:43 GM Desktop 10/28/23 10:54 GM Document 11/04/23 09:19 KW Desktop 11/04/23 09:36 KW 10/14/23 10/21/23 10/28/23 08:42 09:30 10:43 Wound Center Nurse 1 #18 Left medial LE cluster -Combined with other wound No -Current Size (cm) - Length 8 0.1 -Current Size (cm) - Width 21.5 0.1 -Current Size (cm) - Depth 0.2 0.1 -Total Square Cm 172.0 0.01 -Epithelialization Small 1-33% -Tunneling No No -Undermining/Tunneling No No -Circular Undermining No No -Exudate Amt Large Large -Exudate Type Serosanguineous Yellow/Green -Wound Margin Distinct, Distinct, Outline Outline Attached Attached -Granulation Amt Medium (34-66%) Large (67-100%) -Granulation Quality [place],Red Red -Slough/Fibrin Yes -Necrosis Amt Medium (34-66%) Medium (34-66%) -Necrotic Tissue Type Adherent Slough Adherent Slough -Structure Exposed N/A N/A -Texture (Marie-wound Skin Appearance) Assessed Assessed -Moisture (Marie-wound Skin Appearance) Assessed Assessed -Color (Marie-wound Skin Appearance) Hemosiderin Assessed Staining -Temperature (Marie-wound Skin No Abnormality Appearance) (Pt Warm) -Tenderness on Palpation (Marie-wound No Skin Appearance) -Ulcer Cleansing Wound Cleanser Soap and Water -Foul Odor after Cleansing No -Anesthetic Used 4% Lidocaine Solution -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) Wound not messured d/t theraskin intact. Lower Limb Edema Present Yes Left Calf (cm) 41.5 40.5 40.3 Left Ankle (cm) 29.5 29 29.2 11/04/23 09:19 Wound Center Nurse 1 #18 Left medial LE cluster -Combined with other wound -Current Size (cm) - Length -Current Size (cm) - Width -Current Size (cm) - Depth -Total Square Cm -Epithelialization -Tunneling -Undermining/Tunneling -Circular Undermining -Exudate Amt -Exudate Type -Wound Margin -Granulation Amt -Granulation Quality -Slough/Fibrin -Necrosis Amt -Necrotic Tissue Type -Structure Exposed -Texture (Marie-wound Skin Appearance) -Moisture (Marie-wound Skin Appearance) -Color (Marie-wound Skin Appearance) -Temperature (Marie-wound Skin Appearance) -Tenderness on Palpation (Marie-wound Skin Appearance) -Ulcer Cleansing -Foul Odor after Cleansing -Anesthetic Used -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) Cleansed around wound with soap and water. Theraskin left intact. Lower Limb Edema Present Left Calf (cm) 39 Left Ankle (cm) 28.5 WC - Nurse 2 - General Ulcer CM Notes Start: 10/14/23 08:41 Freq: Status: Active Protocol: Activity Type Activity Date Activity User E-sign Co-sign Detail Recorded Client Recorded Date Recorded By Document 10/14/23 08:49 GM [id number] 10/14/23 09:59 GM Edit Result 10/14/23 08:49 GM (1) [id number] 10/28/23 12:42 GM Document 10/21/23 09:50 GM Desktop 10/21/23 09:58 GM Document 10/28/23 10:54 GM [id number] 10/28/23 12:42 GM Document 11/04/23 10:00 GM Desktop 11/04/23 10:01 GM (1) #18 Left medial LE cluster - Post Debridement (cm) - Length => 11 - Post Debridement (cm) - Width => 19.5 - Post Debridement (cm) - Depth => 0.1 - Total Square (Post) (cm) => 214.5 - Area of Debridement (cm) - Length => 11 - Area of Debridement (cm) - Width => 19.5 - Total Square (Area) (cm) => 214.5 10/14/23 10/21/23 10/28/23 08:49 09:50 10:54 Wound Center Nurse 2 #18 Left medial LE cluster -Time 09:04 09:50 10:56 -Correct Patient Yes Yes Yes -Correct Side, Site, Position Yes Yes Yes -Correct Procedure Yes Yes Yes -Procedure Performed Yes No Yes -Type of Procedure Debridement Debridement -Clinical Debridement Subcutaneous Subcutaneous -Tissue Removed Subcutaneous Subcutaneous -Post Debridement (cm) - Length 11 9.5 -Post Debridement (cm) - Width 19.5 17.1 -Post Debridement (cm) - Depth 0.1 0.1 -Total Square (Post) (cm) 214.5 162.45 -Area of Debridement (cm) - Length 11 -Area of Debridement (cm) - Width 19.5 -Total Square (Area) (cm) 214.5 -Tunneling No No No -Undermining/Tunneling No No No -Circular Undermining No No No -Wound/Ulcer Outcome Not Healed Not Healed Not Healed -Ulcer Cleansing Rinsed/ Not Cleansed Rinsed/ Irrigated with Irrigated with Saline Saline -Foul Odor after Cleansing No No -Bioengineered Tissue Yes Yes -Type of Bioengineered Tissue Theraskin -Type of Bioengineered Tissue Theraskin -Expiration Date 01/17/28 03/30/27 -Product Lot Number [id number] -Percent Used 100 100 -Lot number of Saline Used [id number] -Bleeding Controlled with Pressure Pressure -Treatment Response Procedure Procedure Tolerated Well Tolerated Well -Assistive Device(s) Walker -Debridement - Subq, 1st 20sq cm No No -Apply Skin Sub - 1st 100 sq cm - Legs 1 -Apply Skin Sub - each addt'l 100 sq 1 cm - Legs -Theraskin (per sq cm) 116 -Theraskin - 103TSXL (116 SQ CM) (per 116 sq cm) Pain Scale: 0-10 Numeric Is Patient Pain Free? Yes Yes Yes 11/04/23 10:00 Wound Center Nurse 2 #18 Left medial LE cluster -Time 10:00 -Correct Patient Yes -Correct Side, Site, Position Yes -Correct Procedure -Procedure Performed -Type of Procedure -Clinical Debridement -Tissue Removed -Post Debridement (cm) - Length -Post Debridement (cm) - Width -Post Debridement (cm) - Depth -Total Square (Post) (cm) -Area of Debridement (cm) - Length -Area of Debridement (cm) - Width -Total Square (Area) (cm) -Tunneling No -Undermining/Tunneling No -Circular Undermining No -Wound/Ulcer Outcome Not Healed -Ulcer Cleansing Not Cleansed -Foul Odor after Cleansing -Bioengineered Tissue -Type of Bioengineered Tissue -Type of Bioengineered Tissue -Expiration Date -Product Lot Number -Percent Used -Lot number of Saline Used -Bleeding Controlled with -Treatment Response -Assistive Device(s) -Debridement - Subq, 1st 20sq cm -Apply Skin Sub - 1st 100 sq cm - Legs -Apply Skin Sub - each addt'l 100 sq cm - Legs -Theraskin (per sq cm) -Theraskin - 103TSXL (116 SQ CM) (per sq cm) Pain Scale: 0-10 Numeric Is Patient Pain Free? Yes - Nurse 3 - General Ulcer D/C NN Start: 10/14/23 08:41 Freq: Status: Active Protocol: Activity Type Activity Date Activity User E-sign Co-sign Detail Recorded Client Recorded Date Recorded By Document 10/14/23 09:46 KW Desktop 10/14/23 09:47 KW Document 10/21/23 10:14 RB Desktop 10/21/23 10:15 RB Document 10/28/23 12:00 [id number] 10/28/23 12:44 Document 11/04/23 10:08 RB Desktop 11/04/23 10:10 RB 10/14/23 10/21/23 10/28/23 09:46 10:14 12:00 Wound Care Center Nurse 3 #18 Left medial LE cluster -Ulcer Cleansing Not Cleansed -Foul Odor after Cleansing No -Primary Dressing Applied Optilok 8x12 Aquacel Extra, Aquacel Extra, Optilok 8x12 Optilok 6.5x10 -Other Dressing abd -Primary Dressing Covered/Secured with Dry Gauze & Dry Gauze & Dry Gauze & Roll Gauze, Roll Gauze, Roll Gauze, Secured with Secured with Secured with Tape Tape Tape -Aquacel Extra 2 2 -Optilok 6.5x10 1 -Optilok 8x12 1 1 Right -Lotion applied to leg before No compression wrap -Compression Wrap Marcio Wrap -Tubular Bandage Single Layer Single Layer -Size of Tubigrip Used Size D Size D -Size D ($) 1 1 -Size E ($) Left -Lotion applied to leg before Yes compression wrap -Tubular Bandage Single Layer Single Layer -Size of Tubigrip Used Size D Size D -Size D ($) 1 1 -Size E ($) Treatment Response Procedure Tolerated Well Pain Scale: 0-10 Numeric Is Patient Pain Free? Yes No Yes Teaching: Wound Center *Wound/Skin Impairment -Person Taught Patient -Teaching Method Discussion -Response to teaching Verbalize understanding Dressing Your Wound -Person Taught -Teaching Method -Response to teaching WC - Visit Discharge Discharge Condition Stable Stable Stable Ambulatory Status Ambulatory, Ambulatory, Ambulatory, Walker Walker Walker Transportation Private Auto Private Auto Medication Reconcilliation completed & No No Yes provided to patient/care provider Clinical Summary of Care Provided Yes Yes Yes 11/04/23 10:08 Wound Care Center Nurse 3 #18 Left medial LE cluster -Ulcer Cleansing -Foul Odor after Cleansing -Primary Dressing Applied Aquacel Extra, Optilok 8x12 -Other Dressing -Primary Dressing Covered/Secured with Dry Gauze & Roll Gauze, Secured with Tape -Aquacel Extra 2 -Optilok 6.5x10 -Optilok 8x12 1 Right -Lotion applied to leg before compression wrap -Compression Wrap -Tubular Bandage Single Layer -Size of Tubigrip Used Size E -Size D ($) -Size E ($) 1 Left -Lotion applied to leg before compression wrap -Tubular Bandage Single Layer -Size of Tubigrip Used Size E -Size D ($) -Size E ($) 1 Treatment Response Procedure Tolerated Well Pain Scale: 0-10 Numeric Is Patient Pain Free? Yes Teaching: Wound Center *Wound/Skin Impairment -Person Taught -Teaching Method -Response to teaching Dressing Your Wound -Person Taught Patient -Teaching Method Discussion, Demonstration -Response to teaching Verbalize understanding WC - Visit Discharge Discharge Condition Stable Ambulatory Status Ambulatory, Walker Transportation Private Auto Medication Reconcilliation completed & No provided to patient/care provider Clinical Summary of Care Provided Yes Assessment/Plan Assessment/Plan (1) Lymphedema: CODE(S): I89.0 - Lymphedema, not elsewhere classified (2) Hypertension: CODE(S): I10 - Essential (primary) hypertension QUALIFIERS: Hypertension type: primary hypertension Qualified Code(s): I10 - Essential (primary) hypertension (3) Hyperlipidemia: CODE(S): E78.5 - Hyperlipidemia, unspecified QUALIFIERS: Hyperlipidemia type: mixed hyperlipidemia Qualified Code(s): E78.2 - Mixed hyperlipidemia (4) History of DVT (deep vein thrombosis): CODE(S): Z86.718 - Personal history of other venous thrombosis and embolism (5) Venous insufficiency (chronic) (peripheral): CODE(S): I87.2 - Venous insufficiency (chronic) (peripheral) (6) Venous ulcer of left lower extremity with varicose veins: CODE(S): I83.029 - Varicose veins of left lower extremity with ulcer of unspecified site (7) Edema: CODE(S): R60.9 - Edema, unspecified QUALIFIERS: Edema type: unspecified Qualified Code(s): R60.9 - Edema, unspecified PLAN: Plan Evaluation and penetration of Theraskin with needle to stimulate bleeding to left medial LE ulcer performed today in clinic as annotated above. At home wound-care instructions: Theraskin #2 application is being tolerated well. The day of application on 10/14/23 the ulcer measured 214 square cm and on day #14 the ulcer measured 162.45 square cm. This is a 24% decrease in the square cm area of the ulcer from the application of the Theraskin skin graft. Due to meeting and exceeding the goal of therapy of a 20% reduction in the square cm area of the ulcer, the decision to apply a second application of Theraskin to the ulcer was made with the goal of an additional 20% reduction in the size of the ulcer which would be a minimum area of 129.96 square cm in 2 weeks. Theraskin #2 was evaluated today and is intact and a 25 G 1 syringe needle was used to penetrate the surface of the Theraskin and the patient's ulcer to induce bleeding and stimulate continued progress of Theraskin treatment today. The Theraskin product covers roughly 90% of the ulcer. The Theraskin was remains secured with dermabond to the edges of the ulcer and is covered with wound veil and secured with steri-strips. The patient was advised to keep the dressings intact and clean and dry. Continue compression with D tubigrips b/l. Due to the delayed progress in wound healing of his venous ulcers, we discussed applying for advanced wound healing product for healing his ulcer. Due to the size of his ulcer, Theraskin application approval is being requested from his insurance as it is medically necessary for salvaging his limb and healing his ulcer. This was approved for 1 application and if goal of 20% reduction in size is met then additional application will be approved. Off-loading: The patient was instructed to avoid pressure and friction on the affected areas. Reposition every 2 hours at minimum. Avoid prolonged standing and/or dangling of legs. When seated, feet should be elevated at chest level. Frequent ambulation is encouraged. Encouraged lymphedema pump use. Diet: Patient encouraged to increase protein intake while taking caution to avoid high carbohydrate and/or sugar intake. Labs/cultures/imaging: Wound culture showed 1+ Pseudomonas that is sensitive to Levofloxacin and completed treatment on 08/16/23. Follow-up: Return in 1 week for wound care follow up and have secondary dressing changed by home health Tuesday and Tuesday. Return sooner or report to the emergency room should symptoms worsen, or new symptoms arise. Note: [employer] speech recognition major account representative software was used to create portions of this document. Sound-alike and misspelled words, as well as other major account representative errors may be contained in the documentation.
== END 2023-11-09 23:59 | disposition home or self-care (01) ==
LOC: WC 09:45
PROVIDERS: PCP Family Medicine; Referring Provider Family Medicine; Visit Provider Family Medicine
DX: I89.0 Lymphedema, not elsewhere classified (principal); L97.922 Non-pressure chronic ulcer of unspecified part of left lower leg with fat layer exposed; I83.029 Varicose veins of left lower extremity with ulcer of unspecified site; I10 Essential (primary) hypertension; E78.5 Hyperlipidemia, unspecified; Z86.718 Personal history of other venous thrombosis and embolism; I87.2 Venous insufficiency (chronic) (peripheral); R60.9 Edema, unspecified
CPT/HCPCS: 15273; 15274; 99213; Q4121; G0463

== ENCOUNTER 2023-12-02 09:30 | Outpatient (RCR) | payer MEDICARE, OTHER, SELFPAY ==
[2023-11-10 00:46] VITALS: BP 135/78; PULSE 70; RESP 18; TEMP 35.3
[2023-11-11 10:34] VITALS: BP 113/67; PULSE 65; RESP 18; TEMP 35.5
--- NOTE | 2023-11-11 14:32 | PN.PCM_ITS ---
History of Present Illness Date of Service: 11/11/23 Chief Complaint: venous ulcers of left lower extremity History of Wound: Mauricio is a 68 yo gentleman who is here today for evaluation of ulcers to to his bilateral lower legs. He has been treated multiple times in the past at the wound healing center for similar ulcers. The left LE ulcer started after he developed increased swelling and blisters of left leg in October and the right leg started sometime at the end of October. He was seen at PCP's office a culture was taken and it was resistant to several antibiotics. He was treated initially with Levaquin but had myalgias and then was treated with doxycycline which he finished 2 days ago. He denies improvement and is having swelling to his left calf and thigh. He has been having swelling to both lower extremities for many years and it has worsened over the last few months. He has not been compliant with compression. He has had increased pain especially in the left leg. He has clear yellow drainage and redness without odor or warmth. He is anti- coagulated on coumadin. He has been washing with Dial soap and witch ifrah. He had been using Collagen at times and using Calcium Alginate and covering with ABD pads during October. He was treated with 3M compression and Aquacel Ag. He was referred to the wound center for ongoing treatment. His ulcers have moderate to heavy drainage. He was recently hospitalized for cellulitis and edema for the last 10 days. He was in the hospital from 11/30/22 until 12/09/22 for treatment of cellulitis and edema. He underwent treatment with Vancomycin and IV lasix and compression. Discharged on 12/09/22. He returned to his assisted living apartment on Tuesday12/21/22. Subjective Subjective Mauricio is a 68-year-old male with longstanding history of chronic venous ulceration to the left lower extremity. He has been using Aquacel Extra and tolerating treatment well. Theraskin remained intact and steri-strips and wound veil were also intact. He reports significantly decreased drainage. He continues to use super absorber for heavy drainage and size D Tubigrips for compression. 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 He continues to use his lymphedema pumps but continues to have pain with use of these pumps. Objective Data Objective Data Vital Signs: Vital Signs Temp Pulse Resp BP 96 F L 65 18 113/67 11/11/23 10:34 11/11/23 10:34 11/11/23 10:34 11/11/23 10:34 Physical Exam Const alert, oriented x3 and no apparent distress General Appearance: cooperative and comfortable HEENT normocephalic and head/scalp atraumatic Lymph Lymphatic: lymphedema moderate Resp normal respiratory effort Effort and Inspection: able to speak in complete sentences Cardio regular rate and regular rhythm Extremity General Extremity: edema bilateral lower extremity Details: severe Skin Wounds: wounds noted Wound Narrative: as in clinical panel Psych mental status grossly normal, thought process normal, cooperative and affect normal Debridement Note Debridement Note Wound debrided: left medial LE ulcer Laterality: Left Type of Debridement: Excisional debridement Anesthesia Used: 4% Lidocaine Solution and Cetacaine Depth: Down to and including healthy tissue and in the subcutaneous layer Percentage of wound debrided: 100 Instrument Used: 7mm curette Tissue Removed: Yellow slough, devitalized tissue Severity: Fat Layer Exposed Amount of bleeding with debridement: Mild Bleeding Controlled with: Compression and gauze Patient tolerated procedure: Patient tolerated procedure well Post-Debridement Measurements and Additional Note: Post-Debridement Measurements/Treatment - Nurse 1 - General Ulcer Assessment Start: 11/11/23 10:34 Freq: Status: Active Protocol: ONDINA Activity Type Activity Date Activity User E-sign Co-sign Detail Recorded Client Recorded Date Recorded By Document 11/11/23 10:34 Desktop 11/11/23 10:36 11/11/23 10:34 - Today's Visit Information Type of service Follow-up Visit (Physician/AIRCONDITIONING PLANT OPERATOR ) Arrival Mode Ambulatory Transfer Assistance None Patient Identification Verified (Name & Yes ) Patient Requires Transmission-Based No Precautions Vital Signs Temperature (97.8 F-99.1 F) 96 F L Temperature Source Temporal Pulse Rate (60-100) 65 Pulse Location Monitor Respiratory Rate (12-18) 18 Respiratory rate source Observation Blood Pressure (90/60-120/80) 113/67 Blood Pressure Mean (mm Hg) 82 Source Monitor Position Semi-Fowlers Blood Pressure Location Left Arm History Since Last Visit- (Skip if this is Patient's initial visit) Have you changed medications since your No last visit? Any new allergies or adverse reactions No Had a fall/change in ADL's that may No increase risk of falls Signs or symptoms of abuse and/or No neglect since last visit Have you been in the hospital since your No last visit? Has dressing in place as prescribed Yes Has compression in place as prescribed Yes Has offloadiing in place as prescribed No Experienced any changes in pain level or No management Pain Scale: 0-10 Numeric Is Patient Pain Free? Yes - Nurse 1 - General Ulcer Measurement Start: 11/11/23 10:34 Freq: Status: Active Protocol: Activity Type Activity Date Activity User E-sign Co-sign Detail Recorded Client Recorded Date Recorded By Document 11/11/23 10:34 RB Desktop 11/11/23 10:36 RB 11/11/23 10:34 Wound Center Nurse 1 #18 Left medial LE cluster -Combined with other wound No -Current Size (cm) - Length 13 -Current Size (cm) - Width 15 -Current Size (cm) - Depth 0.1 -Total Square Cm 195 -Tunneling No -Undermining/Tunneling No -Circular Undermining No -Exudate Amt Medium -Exudate Type Serosanguineous -Wound Margin Distinct, Outline Attached -Granulation Amt Medium (34-66%) -Granulation Quality [place] -Slough/Fibrin Yes -Necrosis Amt Large (67-100%) -Necrotic Tissue Type Adherent Slough -Structure Exposed N/A -Texture (Marie-wound Skin Appearance) Assessed -Moisture (Marie-wound Skin Appearance) Assessed -Color (Marie-wound Skin Appearance) Assessed, Hemosiderin Staining -Temperature (Marie-wound Skin No Abnormality Appearance) (Pt Warm) -Tenderness on Palpation (Marie-wound No Skin Appearance) -Ulcer Cleansing Wound Cleanser -Foul Odor after Cleansing No -Anesthetic Used 4% Lidocaine Solution Lower Limb Edema Present Yes Left Calf (cm) 40.2 Left Ankle (cm) 28.5 - Nurse 2 - General Ulcer CM Notes Start: 11/11/23 10:34 Freq: Status: Active Protocol: Activity Type Activity Date Activity User E-sign Co-sign Detail Recorded Client Recorded Date Recorded By Document 11/11/23 10:40 Desktop 11/11/23 11:09 11/11/23 10:40 Wound Center Nurse 2 #18 Left medial LE cluster -Time 10:56 -Correct Patient Yes -Correct Side, Site, Position Yes -Correct Procedure Yes -Procedure Performed Yes -Type of Procedure Debridement -Clinical Debridement Subcutaneous -Tissue Removed Subcutaneous -Post Debridement (cm) - Length 11.5 -Post Debridement (cm) - Width 17.5 -Post Debridement (cm) - Depth 0.1 -Total Square (Post) (cm) 201.25 -Area of Debridement (cm) - Length 11.5 -Area of Debridement (cm) - Width 17.5 -Total Square (Area) (cm) 201.25 -Tunneling No -Undermining/Tunneling No -Circular Undermining No -Wound/Ulcer Outcome Not Healed -Ulcer Cleansing Rinsed/ Irrigated with Saline -Foul Odor after Cleansing No -Bioengineered Tissue No -Bleeding Controlled with Pressure -Treatment Response Procedure Tolerated Well -Debridement - Subq, 1st 20sq cm Yes -Debridement, SubQ, ea addt'l 20sq cm 10 or part thereof Pain Scale: 0-10 Numeric Is Patient Pain Free? Yes Assessment/Plan Assessment/Plan (1) Lymphedema: CODE(S): I89.0 - Lymphedema, not elsewhere classified (2) Hypertension: CODE(S): I10 - Essential (primary) hypertension QUALIFIERS: Hypertension type: primary hypertension Qualified Code(s): I10 - Essential (primary) hypertension (3) Hyperlipidemia: CODE(S): E78.5 - Hyperlipidemia, unspecified QUALIFIERS: Hyperlipidemia type: mixed hyperlipidemia Qualified Code(s): E78.2 - Mixed hyperlipidemia (4) History of DVT (deep vein thrombosis): CODE(S): Z86.718 - Personal history of other venous thrombosis and embolism (5) Venous insufficiency (chronic) (peripheral): CODE(S): I87.2 - Venous insufficiency (chronic) (peripheral) (6) Venous ulcer of left lower extremity with varicose veins: CODE(S): I83.029 - Varicose veins of left lower extremity with ulcer of unspecified site (7) Edema: CODE(S): R60.9 - Edema, unspecified QUALIFIERS: Edema type: unspecified Qualified Code(s): R60.9 - Edema, unspecified PLAN: Plan Evaluation and debridement of left medial LE ulcer performed today in clinic as annotated above. At home wound-care instructions: Theraskin #2 application was tolerated well but unfortunately although there was significant improvement in the wound bed there was not enough change in overall size to perform another application of Theraski n. I do believe that he has benefitted from these applications and would benefit from continued application of the Theraskin as only 90% of his ulcer was able to be treated with the Theraskin. Hopefully over the course of the next week there will be continued improvement with residual growth factors present from Theraskin application. Will dress his ulcers with Aquacel Extra daily and cover with super absorber and gauze. If his ulcers are dry then would decrease frequency of changes to every other day. Continue compression with D tubigrips b/l. Due to the delayed progress in wound healing of his venous ulcers, we discussed applying for advanced wound healing product for healing his ulcer. Due to the size of his ulcer, Theraskin application approval is being requested from his insurance as it is medically necessary for salvaging his limb and healing his ulcer. He underwent 2 applications of Theraskin to this ulcer. Off-loading: The patient was instructed to avoid pressure and friction on the affected areas. Reposition every 2 hours at minimum. Avoid prolonged standing and/or dangling of legs. When seated, feet should be elevated at chest level. Frequent ambulation is encouraged. Encouraged lymphedema pump use. Diet: Patient encouraged to increase protein intake while taking caution to avoid high carbohydrate and/or sugar intake. Labs/cultures/imaging: Wound culture showed 1+ Pseudomonas that is sensitive to Levofloxacin and completed treatment on 08/16/23. Follow-up: Return in 1 week for wound care follow up and have secondary dressing changed by home health Tuesday and Tuesday. Return sooner or report to the emergency room should symptoms worsen, or new symptoms arise. Note: [employer] speech recognition city distribution clerk software was used to create portions of this document. Sound-alike and misspelled words, as well as other city distribution clerk errors may be contained in the documentation.
[2023-11-18 09:39] VITALS: BP 121/64; PULSE 65; RESP 18; TEMP 36.1
--- NOTE | 2023-11-18 12:54 | PCM.WC.PN ---
History of Present Illness Date of Service: 11/18/23 Chief Complaint: venous ulcers of left lower extremity History of Wound: Mauricio is a 68 yo gentleman who is here today for evaluation of ulcers to to his bilateral lower legs. He has been treated multiple times in the past at the wound healing center for similar ulcers. The left LE ulcer started after he developed increased swelling and blisters of left leg in October and the right leg started sometime at the end of October. He was seen at PCP's office a culture was taken and it was resistant to several antibiotics. He was treated initially with Levaquin but had myalgias and then was treated with doxycycline which he finished 2 days ago. He denies improvement and is having swelling to his left calf and thigh. He has been having swelling to both lower extremities for many years and it has worsened over the last few months. He has not been compliant with compression. He has had increased pain especially in the left leg. He has clear yellow drainage and redness without odor or warmth. He is anti-coagulated on coumadin. He has been washing with Dial soap and witch ifrah. He had been using Collagen at times and using Calcium Alginate and covering with ABD pads during October. He was treated with 3M compression and Aquacel Ag. He was referred to the wound center for ongoing treatment. His ulcers have moderate to heavy drainage. He was recently hospitalized for cellulitis and edema for the last 10 days. He was in the hospital from 11/30/22 until 12/09/22 for treatment of cellulitis and edema. He underwent treatment with Vancomycin and IV lasix and compression. Discharged on 12/09/22. He returned to his assisted living apartment on Tuesday12/21/22. Subjective Subjective Mauricio is a 68-year-old male with longstanding history of chronic venous ulceration to the left lower extremity. He has been using Aquacel Extra and tolerating treatment well. There has been improvement in his ulcer overall. He reports significantly decreased drainage. He continues to use super absorber for heavy drainage and size D Tubigrips for compression. 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 He continues to use his lymphedema pumps but continues to have pain with use of these pumps. Objective Data Objective Data Vital Signs: Vital Signs Temp Pulse Resp BP O2 Del Method 96.9 F L 65 18 121/64 H Room Air 11/18/23 09:39 11/18/23 09:39 11/18/23 09:39 11/18/23 09:39 11/18/23 09:39 Oxygen Delivery Method Room Air Physical Exam Const alert, oriented x3 and no apparent distress General Appearance: cooperative and comfortable HEENT normocephalic and head/scalp atraumatic Lymph Lymphatic: lymphedema moderate Resp normal respiratory effort Effort and Inspection: able to speak in complete sentences Cardio regular rate and regular rhythm Extremity General Extremity: edema bilateral lower extremity Details: severe Skin Wounds: wounds noted Wound Narrative: as in clinical panel Psych mental status grossly normal, thought process normal, cooperative and affect normal Debridement Note Debridement Note Wound debrided: left medial LE ulcer Laterality: Left Type of Debridement: Excisional debridement Anesthesia Used: 4% Lidocaine Solution and Cetacaine Depth: Down to and including healthy tissue and in the subcutaneous layer Percentage of wound debrided: 100 Instrument Used: 7mm curette Tissue Removed: Yellow slough, devitalized tissue Severity: Fat Layer Exposed Amount of bleeding with debridement: Mild Bleeding Controlled with: Compression and gauze Patient tolerated procedure: Patient tolerated procedure well Post-Debridement Measurements and Additional Note: Post-Debridement Measurements/Treatment - Nurse 1 - General Ulcer Assessment Start: 11/11/23 10:34 Freq: Status: Active Protocol: ONDINA Activity Type Activity Date Activity User E-sign Co-sign Detail Recorded Client Recorded Date Recorded By Document 11/11/23 10:34 RB Desktop 11/11/23 10:36 RB Document 11/18/23 09:39 KW Desktop 11/18/23 10:00 KW 11/11/23 11/18/23 10:34 09:39 - Today's Visit Information Type of service Follow-up Visit Follow-up Visit (Physician/OCCUPATIONAL HEALTH TECHNICIAN (Physician/OCCUPATIONAL HEALTH 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 ) ) Arrival Mode Ambulatory Ambulatory, Walker Transfer Assistance None Patient Identification Verified (Name & Yes Yes ) Patient Requires Transmission-Based No Precautions Vital Signs Temperature (97.8 F-99.1 F) 96 F L 96.9 F L Temperature Source Temporal Temporal Pulse Rate (60-100) 65 65 Pulse Location Monitor Monitor Respiratory Rate (12-18) 18 18 Respiratory rate source Observation Observation Oxygen Delivery Method Room Air Blood Pressure (90/60-120/80) 113/67 121/64 H Blood Pressure Mean (mm Hg) 82 83 Source Monitor Monitor Position Semi-Fowlers Semi-Fowlers Blood Pressure Location Left Arm Right Forearm History Since Last Visit- (Skip if this is Patient's initial visit) Have you changed medications since your No No last visit? Any new allergies or adverse reactions No No Had a fall/change in ADL's that may No No increase risk of falls Signs or symptoms of abuse and/or No No neglect since last visit Have you been in the hospital since your No No last visit? Has dressing in place as prescribed Yes Yes Has compression in place as prescribed Yes Yes Has offloadiing in place as prescribed No No Experienced any changes in pain level or No No management Left Footwear Regular Shoe Right Footwear Regular Shoe Pain Scale: 0-10 Numeric Is Patient Pain Free? Yes Yes WC - Nurse 1 - General Ulcer Measurement Start: 11/11/23 10:34 Freq: Status: Active Protocol: Activity Type Activity Date Activity User E-sign Co-sign Detail Recorded Client Recorded Date Recorded By Document 11/11/23 10:34 RB Desktop 11/11/23 10:36 RB Document 11/18/23 09:39 [employer] Desktop 11/18/23 10:00 KW 11/11/23 11/18/23 10:34 09:39 Wound Center Nurse 1 #18 Left medial LE cluster -Combined with other wound No -Current Size (cm) - Length 13 10 -Current Size (cm) - Width 15 18 -Current Size (cm) - Depth 0.1 0.1 -Total Square Cm 195 180 -Tunneling No -Undermining/Tunneling No -Circular Undermining No -Exudate Amt Medium Large -Exudate Type Serosanguineous Serosanguineous -Wound Margin Distinct, Distinct, Outline Outline Attached Attached -Granulation Amt Medium (34-66%) Large (67-100%) -Granulation Quality [place] -Slough/Fibrin Yes -Necrosis Amt Large (67-100%) Small (1-33%) -Necrotic Tissue Type Adherent Slough Adherent Slough -Structure Exposed N/A -Texture (Marie-wound Skin Appearance) Assessed Assessed -Moisture (Marie-wound Skin Appearance) Assessed Assessed,Dry/ Scaly -Color (Marie-wound Skin Appearance) Assessed, Assessed, Hemosiderin Erythema Staining -Temperature (Marie-wound Skin No Abnormality No Abnormality Appearance) (Pt Warm) (Pt Warm) -Tenderness on Palpation (Marie-wound No Skin Appearance) -Ulcer Cleansing Wound Cleanser Soap and Water -Foul Odor after Cleansing No -Anesthetic Used 4% Lidocaine 4% Lidocaine Solution Solution Lower Limb Edema Present Yes Left Calf (cm) 40.2 38 Left Ankle (cm) 28.5 30 WC - Nurse 2 - General Ulcer CM Notes Start: 11/11/23 10:34 Freq: Status: Active Protocol: Activity Type Activity Date Activity User E-sign Co-sign Detail Recorded Client Recorded Date Recorded By Document 11/11/23 10:40 Desktop 11/11/23 11:09 GM Document 11/18/23 10:03 [id number] 11/18/23 10:24 11/11/23 11/18/23 10:40 10:03 Wound Center Nurse 2 #18 Left medial LE cluster -Time 10:56 10:04 -Correct Patient Yes Yes -Correct Side, Site, Position Yes Yes -Correct Procedure Yes Yes -Procedure Performed Yes Yes -Type of Procedure Debridement Debridement -Clinical Debridement Subcutaneous Subcutaneous -Tissue Removed Subcutaneous Subcutaneous -Post Debridement (cm) - Length 11.5 11.2 -Post Debridement (cm) - Width 17.5 17.5 -Post Debridement (cm) - Depth 0.1 0.1 -Total Square (Post) (cm) 201.25 196.00 -Area of Debridement (cm) - Length 11.5 11.2 -Area of Debridement (cm) - Width 17.5 17.5 -Total Square (Area) (cm) 201.25 196.00 -Tunneling No No -Undermining/Tunneling No No -Circular Undermining No No -Wound/Ulcer Outcome Not Healed Not Healed -Ulcer Cleansing Rinsed/ Rinsed/ Irrigated with Irrigated with Saline Saline -Foul Odor after Cleansing No No -Bioengineered Tissue No No -Bleeding Controlled with Pressure Pressure -Treatment Response Procedure Procedure Tolerated Well Tolerated Well -Debridement - Subq, 1st 20sq cm Yes Yes -Debridement, SubQ, ea addt'l 20sq cm 10 9 or part thereof Pain Scale: 0-10 Numeric Is Patient Pain Free? Yes Yes DEBBIE - Nurse 3 - General Ulcer D/C NN Start: 11/11/23 10:34 Freq: Status: Active Protocol: Activity Type Activity Date Activity User E-sign Co-sign Detail Recorded Client Recorded Date Recorded By Document 11/18/23 10:30 KW Desktop 11/18/23 10:31 KW 11/18/23 10:30 Wound Care Center Nurse 3 #18 Left medial LE cluster -Primary Dressing Applied Aquacel Extra, Optilok 6.5x10 -Primary Dressing Covered/Secured with Dry Gauze & Roll Gauze, Secured with Tape -Aquacel Extra 1 -Optilok 6.5x10 1 Left -Tubular Bandage Single Layer -Size of Tubigrip Used Size E -Size E ($) 1 Pain Scale: 0-10 Numeric Is Patient Pain Free? Yes WC - Visit Discharge Discharge Condition Stable Ambulatory Status Ambulatory, Walker Transportation Private Auto Medication Reconcilliation completed & No provided to patient/care provider Clinical Summary of Care Provided Yes Assessment/Plan Assessment/Plan (1) Lymphedema: CODE(S): I89.0 - Lymphedema, not elsewhere classified (2) Hypertension: CODE(S): I10 - Essential (primary) hypertension QUALIFIERS: Hypertension type: primary hypertension Qualified Code(s): I10 - Essential (primary) hypertension (3) Hyperlipidemia: CODE(S): E78.5 - Hyperlipidemia, unspecified QUALIFIERS: Hyperlipidemia type: mixed hyperlipidemia Qualified Code(s): E78.2 - Mixed hyperlipidemia (4) History of DVT (deep vein thrombosis): CODE(S): Z86.718 - Personal history of other venous thrombosis and embolism (5) Venous insufficiency (chronic) (peripheral): CODE(S): I87.2 - Venous insufficiency (chronic) (peripheral) (6) Venous ulcer of left lower extremity with varicose veins: CODE(S): I83.029 - Varicose veins of left lower extremity with ulcer of unspecified site (7) Edema: CODE(S): R60.9 - Edema, unspecified QUALIFIERS: Edema type: unspecified Qualified Code(s): R60.9 - Edema, unspecified PLAN: Plan Evaluation and debridement of left medial LE ulcer performed today in clinic as annotated above. At home wound-care instructions: Will dress his ulcers with Aquacel Extra daily and cover with super absorber and gauze. If his ulcers are dry then would decrease frequency of changes to every other day. Continue compression with D tubigrips b/l. Due to the delayed progress in wound healing of his venous ulcers, we discussed applying for advanced wound healing product for healing his ulcer. Due to the size of his ulcer, Theraskin application approval is being requested from his insurance as it is medically necessary for salvaging his limb and healing his ulcer. He underwent 2 applications of Theraskin to this ulcer. Off-loading: The patient was instructed to avoid pressure and friction on the affected areas. Reposition every 2 hours at minimum. Avoid prolonged standing and/or dangling of legs. When seated, feet should be elevated at chest level. Frequent ambulation is encouraged. Encouraged lymphedema pump use. Diet: Patient encouraged to increase protein intake while taking caution to avoid high carbohydrate and/or sugar intake. Labs/cultures/imaging: Wound culture showed 1+ Pseudomonas that is sensitive to Levofloxacin and completed treatment on 08/16/23. Follow-up: Return in 1 week for wound care follow up and have secondary dressing changed by home health Tuesday and Tuesday. Return sooner or report to the emergency room should symptoms worsen, or new symptoms arise. Note: [employer] speech recognition coarse wire drawer software was used to create portions of this document. Sound-alike and misspelled words, as well as other coarse wire drawer errors may be contained in the documentation.
[2023-11-25 09:14] VITALS: BP 106/62; PULSE 79; RESP 18; TEMP 35.6
--- NOTE | 2023-11-25 10:33 | PN.PCM_ITS ---
History of Present Illness Date of Service: 11/25/23 Chief Complaint: venous ulcers of left lower extremity History of Wound: Mauricio is a 68 yo gentleman who is here today for evaluation of ulcers to to his bilateral lower legs. He has been treated multiple times in the past at the wound healing center for similar ulcers. The left LE ulcer started after he developed increased swelling and blisters of left leg in October and the right leg started sometime at the end of October. He was seen at PCP's office a culture was taken and it was resistant to several antibiotics. He was treated initially with Levaquin but had myalgias and then was treated with doxycycline which he finished 2 days ago. He denies improvement and is having swelling to his left calf and thigh. He has been having swelling to both lower extremities for many years and it has worsened over the last few months. He has not been compliant with compression. He has had increased pain especially in the left leg. He has clear yellow drainage and redness without odor or warmth. He is anti- coagulated on coumadin. He has been washing with Dial soap and witch ifrah. He had been using Collagen at times and using Calcium Alginate and covering with ABD pads during October. He was treated with 3M compression and Aquacel Ag. He was referred to the wound center for ongoing treatment. His ulcers have moderate to heavy drainage. He was recently hospitalized for cellulitis and edema for the last 10 days. He was in the hospital from 11/30/22 until 12/09/22 for treatment of cellulitis and edema. He underwent treatment with Vancomycin and IV lasix and compression. Discharged on 12/09/22. He returned to his assisted living apartment on Tuesday12/21/22. Subjective Subjective Mauricio is a 68-year-old male with longstanding history of chronic venous ulceration to the left lower extremity. He has been using Aquacel Extra and tolerating treatment well. There has been improvement in his ulcer overall. He reports significantly decreased drainage. He continues to use super absorber for heavy drainage and size D Tubigrips for compression. 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 He continues to use his lymphedema pumps but continues to have pain with use of these pumps. Objective Data Objective Data Vital Signs: Vital Signs Temp Pulse Resp BP O2 Del Method 96.1 F L 79 18 106/62 Room Air 11/25/23 09:14 11/25/23 09:14 11/25/23 09:14 11/25/23 09:14 11/25/23 09:14 Oxygen Delivery Method Room Air Physical Exam Const alert, oriented x3 and no apparent distress General Appearance: cooperative and comfortable HEENT normocephalic and head/scalp atraumatic Lymph Lymphatic: lymphedema moderate Resp normal respiratory effort Effort and Inspection: able to speak in complete sentences Cardio regular rate and regular rhythm Extremity General Extremity: edema bilateral lower extremity Details: severe Skin Wounds: wounds noted Wound Narrative: as in clinical panel Psych mental status grossly normal, thought process normal, cooperative and affect normal Debridement Note Debridement Note Wound debrided: left medial LE ulcer Laterality: Left Type of Debridement: Excisional debridement Anesthesia Used: 4% Lidocaine Solution and Cetacaine Depth: Down to and including healthy tissue and in the subcutaneous layer Percentage of wound debrided: 100 Instrument Used: 7mm curette Tissue Removed: Yellow slough, devitalized tissue Severity: Fat Layer Exposed Amount of bleeding with debridement: Mild Bleeding Controlled with: Compression and gauze Patient tolerated procedure: Patient tolerated procedure well Post-Debridement Measurements and Additional Note: Post-Debridement Measurements/Treatment - Nurse 1 - General Ulcer Assessment Start: 11/11/23 10:34 Freq: Status: Active Protocol: ONDINA Activity Type Activity Date Activity User E-sign Co-sign Detail Recorded Client Recorded Date Recorded By Document 11/11/23 10:34 RB Desktop 11/11/23 10:36 RB Document 11/18/23 09:39 KW Desktop 11/18/23 10:00 KW Document 11/25/23 09:14 KW [employer] 11/25/23 09:26 KW 11/11/23 11/18/23 11/25/23 10:34 09:39 09:14 - Today's Visit Information Type of service Follow-up Visit Follow-up Visit Follow-up Visit (Physician/WIRE ROPE SALES REPRESENTATIVE (Physician/WIRE ROPE SALES REPRESENTATIVE (Physician/WIRE ROPE SALES REPRESENTATIVE ) ) ) Arrival Mode Ambulatory Ambulatory, Ambulatory, Walker Walker Transfer Assistance None Patient Identification Verified (Name & Yes Yes Yes ) Patient Requires Transmission-Based No Precautions Vital Signs Temperature (97.8 F-99.1 F) 96 F L 96.9 F L 96.1 F L Temperature Source Temporal Temporal Temporal Pulse Rate (60-100) 65 65 79 Pulse Location Monitor Monitor Monitor Respiratory Rate (12-18) 18 18 18 Respiratory rate source Observation Observation Observation Oxygen Delivery Method Room Air Room Air Blood Pressure (90/60-120/80) 113/67 121/64 H 106/62 Blood Pressure Mean (mm Hg) 82 83 76 Source Monitor Monitor Monitor Position Semi-Fowlers Semi-Fowlers Sitting Blood Pressure Location Left Arm Right Forearm Right Arm History Since Last Visit- (Skip if this is Patient's initial visit) Have you changed medications since your No No No last visit? Any new allergies or adverse reactions No No No Had a fall/change in ADL's that may No No No increase risk of falls Signs or symptoms of abuse and/or No No No neglect since last visit Have you been in the hospital since your No No No last visit? Has dressing in place as prescribed Yes Yes Yes Has compression in place as prescribed Yes Yes Yes Has offloadiing in place as prescribed No No N/A Experienced any changes in pain level or No No No management Left Footwear Regular Shoe Regular Shoe Right Footwear Regular Shoe Regular Shoe Pain Scale: 0-10 Numeric Is Patient Pain Free? Yes Yes Yes WC - Nurse 1 - General Ulcer Measurement Start: 11/11/23 10:34 Freq: Status: Active Protocol: Activity Type Activity Date Activity User E-sign Co-sign Detail Recorded Client Recorded Date Recorded By Document 11/11/23 10:34 RB Desktop 11/11/23 10:36 RB Document 11/18/23 09:39 KW Desktop 11/18/23 10:00 KW Document 11/25/23 09:14 KW Desktop 11/25/23 09:26 KW 11/11/23 11/18/23 11/25/23 10:34 09:39 09:14 Wound Center Nurse 1 #18 Left medial LE cluster -Combined with other wound No -Combined with (Name of Wound-Exactly 18.5 as it is documented) -Current Size (cm) - Length 13 10 10.5 -Current Size (cm) - Width 15 18 0.1 -Current Size (cm) - Depth 0.1 0.1 -Total Square Cm 195 180 1.05 -Tunneling No -Undermining/Tunneling No -Circular Undermining No -Exudate Amt Medium Large Medium -Exudate Type Serosanguineous Serosanguineous Serosanguineous -Wound Margin Distinct, Distinct, Distinct, Outline Outline Outline Attached Attached Attached -Granulation Amt Medium (34-66%) Large (67-100%) Large (67-100%) -Granulation Quality [place] Red Red -Slough/Fibrin Yes -Necrosis Amt Large (67-100%) Small (1-33%) Small (1-33%) -Necrotic Tissue Type Adherent Slough Adherent Slough Adherent Slough -Structure Exposed N/A -Texture (Marie-wound Skin Appearance) Assessed Assessed Assessed -Moisture (Marie-wound Skin Appearance) Assessed Assessed,Dry/ Assessed, Scaly Maceration,Dry/ Scaly -Color (Marie-wound Skin Appearance) Assessed, Assessed, Assessed, Hemosiderin Erythema Erythema Staining -Temperature (Marie-wound Skin No Abnormality No Abnormality No Abnormality Appearance) (Pt Warm) (Pt Warm) (Pt Warm) -Tenderness on Palpation (Marie-wound No Skin Appearance) -Ulcer Cleansing Wound Cleanser Soap and Water Rinsed/ Irrigated with Saline -Foul Odor after Cleansing No No -Anesthetic Used 4% Lidocaine 4% Lidocaine 4% Lidocaine Solution Solution Solution Lower Limb Edema Present Yes Left Calf (cm) 40.2 38 43.5 Left Ankle (cm) 28.5 30 29.4 WC - Nurse 2 - General Ulcer CM Notes Start: 11/11/23 10:34 Freq: Status: Active Protocol: Activity Type Activity Date Activity User E-sign Co-sign Detail Recorded Client Recorded Date Recorded By Document 11/11/23 10:40 [employer] 11/11/23 11:09 Document 11/18/23 10:03 [id number] 11/18/23 10:24 Document 11/25/23 09:59 Desktop 11/25/23 10:01 11/11/23 11/18/23 11/25/23 10:40 10:03 09:59 Wound Center Nurse 2 #18 Left medial LE cluster -Time 10:56 10:04 09:59 -Correct Patient Yes Yes Yes -Correct Side, Site, Position Yes Yes Yes -Correct Procedure Yes Yes Yes -Procedure Performed Yes Yes Yes -Type of Procedure Debridement Debridement Debridement -Clinical Debridement Subcutaneous Subcutaneous Subcutaneous -Tissue Removed Subcutaneous Subcutaneous Subcutaneous -Post Debridement (cm) - Length 11.5 11.2 10.5 -Post Debridement (cm) - Width 17.5 17.5 18.7 -Post Debridement (cm) - Depth 0.1 0.1 0.1 -Total Square (Post) (cm) 201.25 196.00 196.35 -Area of Debridement (cm) - Length 11.5 11.2 10.5 -Area of Debridement (cm) - Width 17.5 17.5 18.7 -Total Square (Area) (cm) 201.25 196.00 196.35 -Tunneling No No No -Undermining/Tunneling No No No -Circular Undermining No No No -Wound/Ulcer Outcome Not Healed Not Healed Not Healed -Ulcer Cleansing Rinsed/ Rinsed/ Rinsed/ Irrigated with Irrigated with Irrigated with Saline Saline Saline -Foul Odor after Cleansing No No No -Bioengineered Tissue No No No -Bleeding Controlled with Pressure Pressure Pressure -Treatment Response Procedure Procedure Procedure Tolerated Well Tolerated Well Tolerated Well -Debridement - Subq, 1st 20sq cm Yes Yes Yes -Debridement, SubQ, ea addt'l 20sq cm 10 9 9 or part thereof Pain Scale: 0-10 Numeric Is Patient Pain Free? Yes Yes Yes - Nurse 3 - General Ulcer D/C NN Start: 11/11/23 10:34 Freq: Status: Active Protocol: Activity Type Activity Date Activity User E-sign Co-sign Detail Recorded Client Recorded Date Recorded By Document 11/18/23 10:30 KW Desktop 11/18/23 10:31 KW Document 11/25/23 10:11 KW Desktop 11/25/23 10:13 KW 11/18/23 11/25/23 10:30 10:11 Wound Care Center Nurse 3 #18 Left medial LE cluster -Primary Dressing Applied Aquacel Extra, Aquacel Extra, Optilok 6.5x10 Optilok 8x12 -Primary Dressing Covered/Secured with Dry Gauze & Dry Gauze & Roll Gauze, Roll Gauze, Secured with Secured with Tape Tape -Aquacel Extra 1 2 -Optilok 6.5x10 1 -Optilok 8x12 1 Left -Compression Wrap Marcio Wrap -Tubular Bandage Single Layer -Size of Tubigrip Used Size E -Size E ($) 1 Pain Scale: 0-10 Numeric Is Patient Pain Free? Yes Yes - Visit Discharge Discharge Condition Stable Stable Ambulatory Status Ambulatory, Ambulatory, Walker Walker Transportation Private Auto Private Auto Medication Reconcilliation completed & No No provided to patient/care provider Clinical Summary of Care Provided Yes Yes Assessment/Plan Assessment/Plan (1) Lymphedema: CODE(S): I89.0 - Lymphedema, not elsewhere classified (2) Hypertension: CODE(S): I10 - Essential (primary) hypertension QUALIFIERS: Hypertension type: primary hypertension Qualified Code(s): I10 - Essential (primary) hypertension (3) Hyperlipidemia: CODE(S): E78.5 - Hyperlipidemia, unspecified QUALIFIERS: Hyperlipidemia type: mixed hyperlipidemia Qualified Code(s): E78.2 - Mixed hyperlipidemia (4) History of DVT (deep vein thrombosis): CODE(S): Z86.718 - Personal history of other venous thrombosis and embolism (5) Venous insufficiency (chronic) (peripheral): CODE(S): I87.2 - Venous insufficiency (chronic) (peripheral) (6) Venous ulcer of left lower extremity with varicose veins: CODE(S): I83.029 - Varicose veins of left lower extremity with ulcer of unspecified site (7) Edema: CODE(S): R60.9 - Edema, unspecified QUALIFIERS: Edema type: unspecified Qualified Code(s): R60.9 - Edema, unspecified PLAN: Plan Evaluation and debridement of left medial LE ulcer performed today in clinic as annotated above. At home wound-care instructions: Will dress his ulcers with Aquacel Extra daily and cover with super absorber and gauze. If his ulcers are dry then would decrease frequency of changes to every other day. Continue compression with D tubigrips b/l. Due to the delayed progress in wound healing of his venous ulcers, we discussed applying for advanced wound healing product for healing his ulcer. Due to the size of his ulcer, Theraskin application approval is being requested from his insurance as it is medically necessary for salvaging his limb and healing his ulcer. He underwent 2 applications of Theraskin to this ulcer. Since application of Theraskin he has had much improvement in epitheliazation of his ulcer even though the overall size is not significantly changed there is progress. Off-loading: The patient was instructed to avoid pressure and friction on the affected areas. Reposition every 2 hours at minimum. Avoid prolonged standing and/or dangling of legs. When seated, feet should be elevated at chest level. Frequent ambulation is encouraged. Encouraged lymphedema pump use. Diet: Patient encouraged to increase protein intake while taking caution to avoid high carbohydrate and/or sugar intake. Labs/cultures/imaging: Wound culture showed 1+ Pseudomonas that is sensitive to Levofloxacin and completed treatment on 08/16/23. Follow-up: Return in 1 week for wound care follow up and have secondary dressing changed by home health Tuesday and Tuesday. Return sooner or report to the emergency room should symptoms worsen, or new symptoms arise. Note: [employer] speech recognition rental counter clerk software was used to create portions of this document. Sound-alike and misspelled words, as well as other rental counter clerk errors may be contained in the documentation.
[2023-12-02 09:41] VITALS: BP 107/66; PULSE 65; RESP 18; TEMP 35.8
--- NOTE | 2023-12-02 13:15 | PCM.WC.PN ---
History of Present Illness Date of Service: 12/02/23 Chief Complaint: venous ulcers of left lower extremity History of Wound: Mauricio is a 68 yo gentleman who is here today for evaluation of ulcers to to his bilateral lower legs. He has been treated multiple times in the past at the wound healing center for similar ulcers. The left LE ulcer started after he developed increased swelling and blisters of left leg in October and the right leg started sometime at the end of October. He was seen at PCP's office a culture was taken and it was resistant to several antibiotics. He was treated initially with Levaquin but had myalgias and then was treated with doxycycline which he finished 2 days ago. He denies improvement and is having swelling to his left calf and thigh. He has been having swelling to both lower extremities for many years and it has worsened over the last few months. He has not been compliant with compression. He has had increased pain especially in the left leg. He has clear yellow drainage and redness without odor or warmth. He is anti-coagulated on coumadin. He has been washing with Dial soap and witch ifrah. He had been using Collagen at times and using Calcium Alginate and covering with ABD pads during October. He was treated with 3M compression and Aquacel Ag. He was referred to the wound center for ongoing treatment. His ulcers have moderate to heavy drainage. He was recently hospitalized for cellulitis and edema for the last 10 days. He was in the hospital from 11/30/22 until 12/09/22 for treatment of cellulitis and edema. He underwent treatment with Vancomycin and IV lasix and compression. Discharged on 12/09/22. He returned to his assisted living apartment on Tuesday12/21/22. Subjective Subjective Mauricio is a 68-year-old male with longstanding history of chronic venous ulceration to the left lower extremity. He has been using Aquacel Extra and tolerating treatment well. There has been improvement in his ulcer overall. He reports significantly decreased drainage. He continues to use super absorber for heavy drainage and size D Tubigrips for compression. 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 He continues to use his lymphedema pumps but continues to have pain with use of these pumps. Objective Data Objective Data Vital Signs: Vital Signs Temp Pulse Resp BP O2 Del Method 96.4 F L 65 18 107/66 Room Air 12/02/23 09:41 12/02/23 09:41 12/02/23 09:41 12/02/23 09:41 12/02/23 09:41 Oxygen Delivery Method Room Air Physical Exam Const alert, oriented x3 and no apparent distress General Appearance: cooperative and comfortable HEENT normocephalic and head/scalp atraumatic Lymph Lymphatic: lymphedema moderate Resp normal respiratory effort Effort and Inspection: able to speak in complete sentences Cardio regular rate and regular rhythm Extremity General Extremity: edema bilateral lower extremity Details: severe Skin Wounds: wounds noted Wound Narrative: as in clinical panel Psych mental status grossly normal, thought process normal, cooperative and affect normal Debridement Note Debridement Note Wound debrided: left medial LE ulcer Laterality: Left Type of Debridement: Excisional debridement Anesthesia Used: 4% Lidocaine Solution and Cetacaine Depth: Down to and including healthy tissue and in the subcutaneous layer Percentage of wound debrided: 100 Instrument Used: 5mm curette Tissue Removed: Yellow slough, devitalized tissue Severity: Fat Layer Exposed Amount of bleeding with debridement: Mild Bleeding Controlled with: Compression and gauze Patient tolerated procedure: Patient tolerated procedure well Post-Debridement Measurements and Additional Note: Post-Debridement Measurements/Treatment - Nurse 1 - General Ulcer Assessment Start: 11/11/23 10:34 Freq: Status: Active Protocol: ONDINA Activity Type Activity Date Activity User E-sign Co-sign Detail Recorded Client Recorded Date Recorded By Document 11/11/23 10:34 RB Desktop 11/11/23 10:36 RB Document 11/18/23 09:39 KW Desktop 11/18/23 10:00 KW Document 11/25/23 09:14 KW Desktop 11/25/23 09:26 KW Document 12/02/23 09:41 KW Desktop 12/02/23 09:52 KW 11/11/23 11/18/23 11/25/23 10:34 09:39 09:14 - Today's Visit Information Type of service Follow-up Visit Follow-up Visit Follow-up Visit (Physician/SQL SERVER DBA DEVELOPER (Physician/SQL SERVER DBA DEVELOPER (Physician/SQL SERVER DBA DEVELOPER ) ) ) Arrival Mode Ambulatory Ambulatory, Ambulatory, Walker Walker Transfer Assistance None Patient Identification Verified (Name & Yes Yes Yes ) Patient Requires Transmission-Based No Precautions Vital Signs Temperature (97.8 F-99.1 F) 96 F L 96.9 F L 96.1 F L Temperature Source Temporal Temporal Temporal Pulse Rate (60-100) 65 65 79 Pulse Location Monitor Monitor Monitor Respiratory Rate (12-18) 18 18 18 Respiratory rate source Observation Observation Observation Oxygen Delivery Method Room Air Room Air Blood Pressure (90/60-120/80) 113/67 121/64 H 106/62 Blood Pressure Mean (mm Hg) 82 83 76 Source Monitor Monitor Monitor Position Semi-Fowlers Semi-Fowlers Sitting Blood Pressure Location Left Arm Right Forearm Right Arm History Since Last Visit- (Skip if this is Patient's initial visit) Have you changed medications since your No No No last visit? Any new allergies or adverse reactions No No No Had a fall/change in ADL's that may No No No increase risk of falls Signs or symptoms of abuse and/or No No No neglect since last visit Have you been in the hospital since your No No No last visit? Has dressing in place as prescribed Yes Yes Yes Has compression in place as prescribed Yes Yes Yes Has offloadiing in place as prescribed No No N/A Experienced any changes in pain level or No No No management Left Footwear Regular Shoe Regular Shoe Right Footwear Regular Shoe Regular Shoe Pain Scale: 0-10 Numeric Is Patient Pain Free? Yes Yes Yes 12/02/23 09:41 WC - Today's Visit Information Type of service Follow-up Visit (Physician/SQL SERVER DBA DEVELOPER ) Arrival Mode Ambulatory, Walker Transfer Assistance Patient Identification Verified (Name & Yes ) Patient Requires Transmission-Based Precautions Vital Signs Temperature (97.8 F-99.1 F) 96.4 F L Temperature Source Temporal Pulse Rate (60-100) 65 Pulse Location Monitor Respiratory Rate (12-18) 18 Respiratory rate source Observation Oxygen Delivery Method Room Air Blood Pressure (90/60-120/80) 107/66 Blood Pressure Mean (mm Hg) 79 Source Monitor Position Semi-Fowlers Blood Pressure Location Right Forearm History Since Last Visit- (Skip if this is Patient's initial visit) Have you changed medications since your No last visit? Any new allergies or adverse reactions No Had a fall/change in ADL's that may No increase risk of falls Signs or symptoms of abuse and/or No neglect since last visit Have you been in the hospital since your No last visit? Has dressing in place as prescribed Yes Has compression in place as prescribed Yes Has offloadiing in place as prescribed N/A Experienced any changes in pain level or No management Left Footwear Regular Shoe Right Footwear Regular Shoe Pain Scale: 0-10 Numeric Is Patient Pain Free? Yes WC - Nurse 1 - General Ulcer Measurement Start: 11/11/23 10:34 Freq: Status: Active Protocol: Activity Type Activity Date Activity User E-sign Co-sign Detail Recorded Client Recorded Date Recorded By Document 11/11/23 10:34 RB Desktop 11/11/23 10:36 RB Document 11/18/23 09:39 KW Desktop 11/18/23 10:00 KW Document 11/25/23 09:14 KW Desktop 11/25/23 09:26 KW Document 12/02/23 09:41 KW Desktop 12/02/23 09:52 KW 11/11/23 11/18/23 11/25/23 10:34 09:39 09:14 Wound Center Nurse 1 #18 Left medial LE cluster -Combined with other wound No -Combined with (Name of Wound-Exactly 18.5 as it is documented) -Current Size (cm) - Length 13 10 10.5 -Current Size (cm) - Width 15 18 0.1 -Current Size (cm) - Depth 0.1 0.1 -Total Square Cm 195 180 1.05 -Tunneling No -Undermining/Tunneling No -Circular Undermining No -Exudate Amt Medium Large Medium -Exudate Type Serosanguineous Serosanguineous Serosanguineous -Wound Margin Distinct, Distinct, Distinct, Outline Outline Outline Attached Attached Attached -Granulation Amt Medium (34-66%) Large (67-100%) Large (67-100%) -Granulation Quality Belding Red Red -Slough/Fibrin Yes -Necrosis Amt Large (67-100%) Small (1-33%) Small (1-33%) -Necrotic Tissue Type Adherent Slough Adherent Slough Adherent Slough -Structure Exposed N/A -Texture (Marie-wound Skin Appearance) Assessed Assessed Assessed -Moisture (Marie-wound Skin Appearance) Assessed Assessed,Dry/ Assessed, Scaly Maceration,Dry/ Scaly -Color (Marie-wound Skin Appearance) Assessed, Assessed, Assessed, Hemosiderin Erythema Erythema Staining -Temperature (Marie-wound Skin No Abnormality No Abnormality No Abnormality Appearance) (Pt Warm) (Pt Warm) (Pt Warm) -Tenderness on Palpation (Marie-wound No Skin Appearance) -Ulcer Cleansing Wound Cleanser Soap and Water Rinsed/ Irrigated with Saline -Foul Odor after Cleansing No No -Anesthetic Used 4% Lidocaine 4% Lidocaine 4% Lidocaine Solution Solution Solution Lower Limb Edema Present Yes Left Calf (cm) 40.2 38 43.5 Left Ankle (cm) 28.5 30 29.4 12/02/23 09:41 Wound Center Nurse 1 #18 Left medial LE cluster -Combined with other wound -Combined with (Name of Wound-Exactly as it is documented) -Current Size (cm) - Length 12 -Current Size (cm) - Width 18.5 -Current Size (cm) - Depth 0.2 -Total Square Cm 222.0 -Tunneling -Undermining/Tunneling -Circular Undermining -Exudate Amt Large -Exudate Type Serosanguineous -Wound Margin Distinct, Outline Attached -Granulation Amt Large (67-100%) -Granulation Quality Red -Slough/Fibrin -Necrosis Amt -Necrotic Tissue Type -Structure Exposed -Texture (Marie-wound Skin Appearance) Assessed -Moisture (Marie-wound Skin Appearance) Assessed -Color (Marie-wound Skin Appearance) Assessed, Erythema -Temperature (Maire-wound Skin No Abnormality Appearance) (Pt Warm) -Tenderness on Palpation (Marie-wound Skin Appearance) -Ulcer Cleansing Soap and Water -Foul Odor after Cleansing No -Anesthetic Used 4% Lidocaine Solution Lower Limb Edema Present Left Calf (cm) 43 Left Ankle (cm) 23 WC - Nurse 2 - General Ulcer CM Notes Start: 11/11/23 10:34 Freq: Status: Active Protocol: Activity Type Activity Date Activity User E-sign Co-sign Detail Recorded Client Recorded Date Recorded By Document 11/11/23 10:40 Desktop 11/11/23 11:09 Document 11/18/23 10:03 [id number] 11/18/23 10:24 Document 11/25/23 09:59 Desktop 11/25/23 10:01 Document 12/02/23 10:00 Desktop 12/02/23 10:27 11/11/23 11/18/23 11/25/23 10:40 10:03 09:59 Wound Center Nurse 2 #18 Left medial LE cluster -Time 10:56 10:04 09:59 -Correct Patient Yes Yes Yes -Correct Side, Site, Position Yes Yes Yes -Correct Procedure Yes Yes Yes -Procedure Performed Yes Yes Yes -Type of Procedure Debridement Debridement Debridement -Clinical Debridement Subcutaneous Subcutaneous Subcutaneous -Tissue Removed Subcutaneous Subcutaneous Subcutaneous -Post Debridement (cm) - Length 11.5 11.2 10.5 -Post Debridement (cm) - Width 17.5 17.5 18.7 -Post Debridement (cm) - Depth 0.1 0.1 0.1 -Total Square (Post) (cm) 201.25 196.00 196.35 -Area of Debridement (cm) - Length 11.5 11.2 10.5 -Area of Debridement (cm) - Width 17.5 17.5 18.7 -Total Square (Area) (cm) 201.25 196.00 196.35 -Tunneling No No No -Undermining/Tunneling No No No -Circular Undermining No No No -Wound/Ulcer Outcome Not Healed Not Healed Not Healed -Ulcer Cleansing Rinsed/ Rinsed/ Rinsed/ Irrigated with Irrigated with Irrigated with Saline Saline Saline -Foul Odor after Cleansing No No No -Bioengineered Tissue No No No -Bleeding Controlled with Pressure Pressure Pressure -Treatment Response Procedure Procedure Procedure Tolerated Well Tolerated Well Tolerated Well -Debridement - Subq, 1st 20sq cm Yes Yes Yes -Debridement, SubQ, ea addt'l 20sq cm 10 9 9 or part thereof Pain Scale: 0-10 Numeric Is Patient Pain Free? Yes Yes Yes 12/02/23 10:00 Wound Center Nurse 2 #18 Left medial LE cluster -Time 10:06 -Correct Patient Yes -Correct Side, Site, Position Yes -Correct Procedure Yes -Procedure Performed Yes -Type of Procedure Debridement -Clinical Debridement Subcutaneous -Tissue Removed Subcutaneous -Post Debridement (cm) - Length 11 -Post Debridement (cm) - Width 17 -Post Debridement (cm) - Depth 0.1 -Total Square (Post) (cm) 187 -Area of Debridement (cm) - Length 11 -Area of Debridement (cm) - Width 17 -Total Square (Area) (cm) 187 -Tunneling No -Undermining/Tunneling No -Circular Undermining No -Wound/Ulcer Outcome Not Healed -Ulcer Cleansing Rinsed/ Irrigated with Saline -Foul Odor after Cleansing No -Bioengineered Tissue No -Bleeding Controlled with Pressure -Treatment Response Procedure Tolerated Well -Debridement - Subq, 1st 20sq cm Yes -Debridement, SubQ, ea addt'l 20sq cm 9 or part thereof Pain Scale: 0-10 Numeric Is Patient Pain Free? Yes - Nurse 3 - General Ulcer D/C NN Start: 11/11/23 10:34 Freq: Status: Active Protocol: Activity Type Activity Date Activity User E-sign Co-sign Detail Recorded Client Recorded Date Recorded By Document 11/18/23 10:30 KW Desktop 11/18/23 10:31 KW Document 11/25/23 10:11 KW Desktop 11/25/23 10:13 KW Document 12/02/23 10:32 KW Desktop 12/02/23 10:32 KW 11/18/23 11/25/23 12/02/23 10:30 10:11 10:32 Wound Care Center Nurse 3 #18 Left medial LE cluster -Primary Dressing Applied Aquacel Extra, Aquacel Extra, Aquacel Extra, Optilok 6.5x10 Optilok 8x12 Other -Other Dressing pt own optilock -Primary Dressing Covered/Secured with Dry Gauze & Dry Gauze & Dry Gauze & Roll Gauze, Roll Gauze, Roll Gauze, Secured with Secured with Secured with Tape Tape Tape -Aquacel Extra 1 2 1 -Optilok 6.5x10 1 -Optilok 8x12 1 Left -Compression Wrap Marcio Wrap Marcio Wrap -Tubular Bandage Single Layer Single Layer -Size of Tubigrip Used Size E Size F -Size E ($) 1 -Size F ($) 1 Pain Scale: 0-10 Numeric Is Patient Pain Free? Yes Yes Yes - Visit Discharge Discharge Condition Stable Stable Stable Ambulatory Status Ambulatory, Ambulatory, Ambulatory, Walker Walker Walker Transportation Private Auto Private Auto Medication Reconcilliation completed & No No No provided to patient/care provider Clinical Summary of Care Provided Yes Yes Yes Assessment/Plan Assessment/Plan (1) Lymphedema: CODE(S): I89.0 - Lymphedema, not elsewhere classified (2) Hypertension: CODE(S): I10 - Essential (primary) hypertension QUALIFIERS: Hypertension type: primary hypertension Qualified Code(s): I10 - Essential (primary) hypertension (3) Hyperlipidemia: CODE(S): E78.5 - Hyperlipidemia, unspecified QUALIFIERS: Hyperlipidemia type: mixed hyperlipidemia Qualified Code(s): E78.2 - Mixed hyperlipidemia (4) History of DVT (deep vein thrombosis): CODE(S): Z86.718 - Personal history of other venous thrombosis and embolism (5) Venous insufficiency (chronic) (peripheral): CODE(S): I87.2 - Venous insufficiency (chronic) (peripheral) (6) Venous ulcer of left lower extremity with varicose veins: CODE(S): I83.029 - Varicose veins of left lower extremity with ulcer of unspecified site (7) Edema: CODE(S): R60.9 - Edema, unspecified QUALIFIERS: Edema type: unspecified Qualified Code(s): R60.9 - Edema, unspecified PLAN: Plan Evaluation and debridement of left medial LE ulcer performed today in clinic as annotated above. At home wound-care instructions: Will dress his ulcers with Aquacel Extra daily and cover with super absorber and gauze. If his ulcers are dry then would decrease frequency of changes to every other day. Continue compression with D tubigrips b/l. Due to the delayed progress in wound healing of his venous ulcers, we discussed applying for advanced wound healing product for healing his ulcer. Due to the size of his ulcer, Theraskin application approval is being requested from his insurance as it is medically necessary for salvaging his limb and healing his ulcer. He underwent 2 applications of Theraskin to this ulcer. Since application of Theraskin he has had much improvement in epitheliazation of his ulcer even though the overall size is not significantly changed there is progress. Off-loading: The patient was instructed to avoid pressure and friction on the affected areas. Reposition every 2 hours at minimum. Avoid prolonged standing and/or dangling of legs. When seated, feet should be elevated at chest level. Frequent ambulation is encouraged. Encouraged lymphedema pump use. Diet: Patient encouraged to increase protein intake while taking caution to avoid high carbohydrate and/or sugar intake. Labs/cultures/imaging: Wound culture showed 1+ Pseudomonas that is sensitive to Levofloxacin and completed treatment on 08/16/23. Follow-up: Return in 1 week for wound care follow up and have secondary dressing changed by home health Tuesday and Tuesday. Return sooner or report to the emergency room should symptoms worsen, or new symptoms arise. Note: [employer] speech recognition electrical checkout mechanic software was used to create portions of this document. Sound-alike and misspelled words, as well as other electrical checkout mechanic errors may be contained in the documentation.
== END 2023-12-08 23:59 | disposition home or self-care (01) ==
LOC: WC 09:30
PROVIDERS: PCP Family Medicine; Referring Provider Family Medicine; Visit Provider Family Medicine
DX: I83.029 Varicose veins of left lower extremity with ulcer of unspecified site (principal); L97.922 Non-pressure chronic ulcer of unspecified part of left lower leg with fat layer exposed; I10 Essential (primary) hypertension; E78.2 Mixed hyperlipidemia; M79.605 Pain in left leg; R60.9 Edema, unspecified; I87.2 Venous insufficiency (chronic) (peripheral); I89.0 Lymphedema, not elsewhere classified; M79.10 Myalgia, unspecified site; Z86.718 Personal history of other venous thrombosis and embolism
CPT/HCPCS: 11042; 11045

== ENCOUNTER 2024-01-06 09:30 | Outpatient (RCR) | payer MEDICARE, OTHER, SELFPAY ==
[2023-12-09 00:34] VITALS: BP 107/66; PULSE 65; RESP 18; TEMP 35.8
[2023-12-09 09:33] VITALS: BP 122/80; PULSE 82; RESP 18; TEMP 35.8
--- NOTE | 2023-12-09 13:15 | PN.PCM_ITS ---
History of Present Illness Date of Service: 12/09/23 Chief Complaint: venous ulcers of left lower extremity History of Wound: Mauricio is a 68 yo gentleman who is here today for evaluation of ulcers to to his bilateral lower legs. He has been treated multiple times in the past at the wound healing center for similar ulcers. The left LE ulcer started after he developed increased swelling and blisters of left leg in October and the right leg started sometime at the end of October. He was seen at PCP's office a culture was taken and it was resistant to several antibiotics. He was treated initially with Levaquin but had myalgias and then was treated with doxycycline which he finished 2 days ago. He denies improvement and is having swelling to his left calf and thigh. He has been having swelling to both lower extremities for many years and it has worsened over the last few months. He has not been compliant with compression. He has had increased pain especially in the left leg. He has clear yellow drainage and redness without odor or warmth. He is anti- coagulated on coumadin. He has been washing with Dial soap and witch ifrah. He had been using Collagen at times and using Calcium Alginate and covering with ABD pads during October. He was treated with 3M compression and Aquacel Ag. He was referred to the wound center for ongoing treatment. His ulcers have moderate to heavy drainage. He was recently hospitalized for cellulitis and edema for the last 10 days. He was in the hospital from 11/30/22 until 12/09/22 for treatment of cellulitis and edema. He underwent treatment with Vancomycin and IV lasix and compression. Discharged on 12/09/22. He returned to his assisted living apartment on Tuesday12/21/22. Subjective Subjective Mauricio is a 68-year-old male with longstanding history of chronic venous ulceration to the left lower extremity. He has been using Aquacel Extra and tolerating treatment well. There has been improvement in his ulcer overall. He reports significantly decreased drainage. He continues to use super absorber for heavy drainage and size D Tubigrips for compression. 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 He continues to use his lymphedema pumps but continues to have pain with use of these pumps. Objective Data Objective Data Vital Signs: Vital Signs Temp Pulse Resp BP 96.5 F L 82 18 122/80 H 12/09/23 09:33 12/09/23 09:33 12/09/23 09:33 12/09/23 09:33 Physical Exam Const alert, oriented x3 and no apparent distress General Appearance: cooperative and comfortable HEENT normocephalic and head/scalp atraumatic Lymph Lymphatic: lymphedema moderate Resp normal respiratory effort Effort and Inspection: able to speak in complete sentences Cardio regular rate and regular rhythm Extremity General Extremity: edema bilateral lower extremity Details: severe Skin Wounds: wounds noted Wound Narrative: as in clinical panel Psych mental status grossly normal, thought process normal, cooperative and affect normal Debridement Note Debridement Note Wound debrided: left medial LE ulcer Laterality: Left Type of Debridement: Excisional debridement Anesthesia Used: 4% Lidocaine Solution and Cetacaine Depth: Down to and including healthy tissue and in the subcutaneous layer Percentage of wound debrided: 100 Instrument Used: 7mm curette Tissue Removed: Yellow slough, devitalized tissue Severity: Fat Layer Exposed Amount of bleeding with debridement: Mild Bleeding Controlled with: Compression and gauze Patient tolerated procedure: Patient tolerated procedure well Post-Debridement Measurements and Additional Note: Post-Debridement Measurements/Treatment - Nurse 1 - General Ulcer Assessment Start: 12/09/23 09:33 Freq: Status: Active Protocol: [email or web address] Activity Type Activity Date Activity User E-sign Co-sign Detail Recorded Client Recorded Date Recorded By Document 12/09/23 09:33 Desktop 12/09/23 09:36 12/09/23 09:33 - Today's Visit Information Type of service 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 ) Arrival Mode Ambulatory, Walker Transfer Assistance None Patient Identification Verified (Name & Yes ) Patient Requires Transmission-Based No Precautions Vital Signs Temperature (97.8 F-99.1 F) 96.5 F L Temperature Source Temporal Pulse Rate (60-100) 82 Pulse Location Monitor Respiratory Rate (12-18) 18 Respiratory rate source Observation Blood Pressure (90/60-120/80) 122/80 H Blood Pressure Mean (mm Hg) 94 Source Monitor Position Semi-Fowlers Blood Pressure Location Left Arm History Since Last Visit- (Skip if this is Patient's initial visit) Have you changed medications since your No last visit? Any new allergies or adverse reactions No Had a fall/change in ADL's that may No increase risk of falls Signs or symptoms of abuse and/or No neglect since last visit Have you been in the hospital since your No last visit? Has dressing in place as prescribed Yes Has compression in place as prescribed Yes Has offloadiing in place as prescribed No Experienced any changes in pain level or No management Pain Scale: 0-10 Numeric Is Patient Pain Free? Yes - Nurse 1 - General Ulcer Measurement Start: 12/09/23 09:33 Freq: Status: Active Protocol: Activity Type Activity Date Activity User E-sign Co-sign Detail Recorded Client Recorded Date Recorded By Document 12/09/23 09:33 RB Desktop 12/09/23 09:36 RB 12/09/23 09:33 Wound Center Nurse 1 #18 Left medial LE cluster -Combined with other wound No -Current Size (cm) - Length 9 -Current Size (cm) - Width 16 -Current Size (cm) - Depth 0.1 -Total Square Cm 144 -Photo Taken Yes -Tunneling No -Undermining/Tunneling No -Circular Undermining No -Exudate Amt Large -Exudate Type Serosanguineous -Wound Margin Distinct, Outline Attached -Granulation Amt Medium (34-66%) -Granulation Quality [place] -Slough/Fibrin Yes -Necrosis Amt Medium (34-66%) -Necrotic Tissue Type Adherent Slough -Structure Exposed N/A -Texture (Marie-wound Skin Appearance) Assessed, Localized Edema -Moisture (Marie-wound Skin Appearance) Assessed -Color (Marie-wound Skin Appearance) Erythema -Temperature (Marie-wound Skin No Abnormality Appearance) (Pt Warm) -Tenderness on Palpation (Marie-wound No Skin Appearance) -Ulcer Cleansing Wound Cleanser -Foul Odor after Cleansing No -Anesthetic Used 4% Lidocaine Solution Lower Limb Edema Present Yes Left Calf (cm) 42 Left Ankle (cm) 30 - Nurse 2 - General Ulcer CM Notes Start: 12/09/23 09:33 Freq: Status: Active Protocol: Activity Type Activity Date Activity User E-sign Co-sign Detail Recorded Client Recorded Date Recorded By Document 12/09/23 10:37 PL [id number] 12/09/23 10:38 PL 12/09/23 10:37 Wound Center Nurse 2 #18 Left medial LE cluster -Time 09:42 -Correct Patient Yes -Correct Side, Site, Position Yes -Correct Procedure Yes -Procedure Performed Yes -Type of Procedure Debridement -Clinical Debridement Subcutaneous -Tissue Removed Subcutaneous -Post Debridement (cm) - Length 10 -Post Debridement (cm) - Width 20 -Post Debridement (cm) - Depth 0.2 -Total Square (Post) (cm) 200 -Area of Debridement (cm) - Length 10 -Area of Debridement (cm) - Width 20 -Total Square (Area) (cm) 200 -Tunneling No -Undermining/Tunneling No -Circular Undermining No -Wound/Ulcer Outcome Not Healed -Ulcer Cleansing Rinsed/ Irrigated with Saline -Foul Odor after Cleansing No -Bioengineered Tissue No -Bleeding Controlled with Pressure -Treatment Response Procedure Tolerated Well -Debridement - Subq, 1st 20sq cm Yes -Debridement, SubQ, ea addt'l 20sq cm 9 or part thereof Pain Scale: 0-10 Numeric Is Patient Pain Free? Yes - Nurse 3 - General Ulcer D/C NN Start: 12/09/23 09:33 Freq: Status: Active Protocol: Activity Type Activity Date Activity User E-sign Co-sign Detail Recorded Client Recorded Date Recorded By Document 12/09/23 11:45 [id number] 12/09/23 11:46 RB 12/09/23 11:45 Wound Care Center Nurse 3 #18 Left medial LE cluster -Ulcer Cleansing Wound Cleanser -Primary Dressing Applied Aquacel Extra -Other Dressing PT'S OWN SUPERABSORBER -Primary Dressing Covered/Secured with Dry Gauze & Roll Gauze, Secured with Tape -Aquacel Extra 2 Right -Tubular Bandage Single Layer -Size of Tubigrip Used Size E -Size E ($) 1 Left -Tubular Bandage Single Layer -Size of Tubigrip Used Size E -Size E ($) 1 Treatment Response Procedure Tolerated Well Pain Scale: 0-10 Numeric Is Patient Pain Free? Yes - Visit Discharge Discharge Condition Stable Ambulatory Status Ambulatory, Walker Transportation Private Auto Medication Reconcilliation completed & No provided to patient/care provider Clinical Summary of Care Provided Yes Assessment/Plan Assessment/Plan (1) Lymphedema: CODE(S): I89.0 - Lymphedema, not elsewhere classified (2) Hypertension: CODE(S): I10 - Essential (primary) hypertension QUALIFIERS: Hypertension type: primary hypertension Qualified Code(s): I10 - Essential (primary) hypertension (3) Hyperlipidemia: CODE(S): E78.5 - Hyperlipidemia, unspecified QUALIFIERS: Hyperlipidemia type: mixed hyperlipidemia Qualified Code(s): E78.2 - Mixed hyperlipidemia (4) History of DVT (deep vein thrombosis): CODE(S): Z86.718 - Personal history of other venous thrombosis and embolism (5) Venous insufficiency (chronic) (peripheral): CODE(S): I87.2 - Venous insufficiency (chronic) (peripheral) (6) Venous ulcer of left lower extremity with varicose veins: CODE(S): I83.029 - Varicose veins of left lower extremity with ulcer of unspecified site (7) Edema: CODE(S): R60.9 - Edema, unspecified QUALIFIERS: Edema type: unspecified Qualified Code(s): R60.9 - Edema, unspecified PLAN: Plan Evaluation and debridement of left medial LE ulcer performed today in clinic as annotated above. At home wound-care instructions: Will dress his ulcers with Aquacel Extra daily and cover with super absorber and gauze. If his ulcers are dry then would decrease frequency of changes to every other day. Continue compression with D tubigrips b/l. Due to the delayed progress in wound healing of his venous ulcers, we discussed applying for advanced wound healing product for healing his ulcer. Due to the size of his ulcer, Therask[employer] application approval is being requested from his insurance as it is medically necessary for salvaging his limb and healing his ulcer. He underwent 2 applications of Theraskin to this ulcer. Since application of Theraskin he has had much improvement in epitheliazation of his ulcer even though the overall size is not significantly changed there is progress. Off-loading: The patient was instructed to avoid pressure and friction on the affected areas. Reposition every 2 hours at minimum. Avoid prolonged standing and/or dangling of legs. When seated, feet should be elevated at chest level. Frequent ambulation is encouraged. Encouraged lymphedema pump use. Diet: Patient encouraged to increase protein intake while taking caution to avoid high carbohydrate and/or sugar intake. Labs/cultures/imaging: Wound culture showed 1+ Pseudomonas that is sensitive to Levofloxacin and completed treatment on 08/16/23. Follow-up: Return in 1 week for wound care follow up and have secondary dressing changed by home health Tuesday and Tuesday. Return sooner or report to the emergency room should symptoms worsen, or new symptoms arise. Note: [email or web address] speech recognition concierge receptionist software was used to create portions of this document. Sound-alike and misspelled words, as well as other concierge receptionist errors may be contained in the documentation.
--- NOTE | 2023-12-16 13:29 | WC ---
3.1.24 LT MED CLUSTER
[2023-12-23 09:38] VITALS: BP 145/87; PULSE 70; RESP 18; TEMP 35.8
--- NOTE | 2023-12-23 14:36 | PN.PCM_ITS ---
History of Present Illness Date of Service: 12/23/23 Chief Complaint: venous ulcers of left lower extremity History of Wound: Mauricio is a 68 yo gentleman who is here today for evaluation of ulcers to to his bilateral lower legs. He has been treated multiple times in the past at the wound healing center for similar ulcers. The left LE ulcer started after he developed increased swelling and blisters of left leg in October and the right leg started sometime at the end of October. He was seen at PCP's office a culture was taken and it was resistant to several antibiotics. He was treated initially with Levaquin but had myalgias and then was treated with doxycycline which he finished 2 days ago. He denies improvement and is having swelling to his left calf and thigh. He has been having swelling to both lower extremities for many years and it has worsened over the last few months. He has not been compliant with compression. He has had increased pain especially in the left leg. He has clear yellow drainage and redness without odor or warmth. He is anti- coagulated on coumadin. He has been washing with Dial soap and witch ifrah. He had been using Collagen at times and using Calcium Alginate and covering with ABD pads during October. He was treated with 3M compression and Aquacel Ag. He was referred to the wound center for ongoing treatment. His ulcers have moderate to heavy drainage. He was recently hospitalized for cellulitis and edema for the last 10 days. He was in the hospital from 11/30/22 until 12/09/22 for treatment of cellulitis and edema. He underwent treatment with Vancomycin and IV lasix and compression. Discharged on 12/09/22. He returned to his assisted living apartment on Tuesday12/21/22. Subjective Subjective Mauricio is a 68-year-old male with longstanding history of chronic venous ulceration to the left lower extremity. He has been using Aquacel Extra and tolerating treatment well. There has been improvement in his ulcer overall. He reports significantly decreased drainage. He continues to use super absorber for heavy drainage and size D Tubigrips for compression. 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 He continues to use his lymphedema pumps but continues to have pain with use of these pumps. Objective Data Objective Data Vital Signs: Vital Signs Temp Pulse Resp BP 96.5 F L 70 18 145/87 H 12/23/23 09:38 12/23/23 09:38 12/23/23 09:38 12/23/23 09:38 Physical Exam Const alert, oriented x3 and no apparent distress General Appearance: cooperative and comfortable HEENT normocephalic and head/scalp atraumatic Lymph Lymphatic: lymphedema moderate Resp normal respiratory effort Effort and Inspection: able to speak in complete sentences Cardio regular rate and regular rhythm Extremity General Extremity: edema bilateral lower extremity Details: severe Skin Wounds: wounds noted Wound Narrative: as in clinical panel Psych mental status grossly normal, thought process normal, cooperative and affect normal Debridement Note Debridement Note Wound debrided: left medial LE ulcer Laterality: Left Type of Debridement: Excisional debridement Anesthesia Used: 4% Lidocaine Solution and Cetacaine Depth: Down to and including healthy tissue and in the subcutaneous layer Percentage of wound debrided: 100 Instrument Used: 5mm curette Tissue Removed: Yellow slough, devitalized tissue Severity: Fat Layer Exposed Amount of bleeding with debridement: Mild Bleeding Controlled with: Compression and gauze Patient tolerated procedure: Patient tolerated procedure well Post-Debridement Measurements and Additional Note: Post-Debridement Measurements/Treatment - Nurse 1 - General Ulcer Assessment Start: 12/09/23 09:33 Freq: Status: Active Protocol: [email or web address] Activity Type Activity Date Activity User E-sign Co-sign Detail Recorded Client Recorded Date Recorded By Document 12/09/23 09:33 RB Desktop 12/09/23 09:36 RB Document 12/23/23 09:38 RB Desktop 12/23/23 09:41 RB 12/09/23 12/23/23 09:33 09:38 - Today's Visit Information Type of service Follow-up Visit Follow-up Visit (Physician/BRADLEY [employer]BACKER [employer]BER (Physician/BRADLEY [employer]BER ) ) Arrival Mode Ambulatory, Ambulatory, Walker Walker Transfer Assistance None None Patient Identification Verified (Name & Yes Yes ) Patient Requires Transmission-Based No No Precautions Vital Signs Temperature (97.8 F-99.1 F) 96.5 F L 96.5 F L Temperature Source Temporal Temporal Pulse Rate (60-100) 82 70 Pulse Location Monitor Monitor Respiratory Rate (12-18) 18 18 Respiratory rate source Observation Observation Blood Pressure (90/60-120/80) 122/80 H 145/87 H Blood Pressure Mean (mm Hg) 94 106 Source Monitor Monitor Position Semi-Fowlers Semi-Fowlers Blood Pressure Location Left Arm Left Arm History Since Last Visit- (Skip if this is Patient's initial visit) Have you changed medications since your No No last visit? Any new allergies or adverse reactions No No Had a fall/change in ADL's that may No No increase risk of falls Signs or symptoms of abuse and/or No No neglect since last visit Have you been in the hospital since your No No last visit? Has dressing in place as prescribed Yes Yes Has compression in place as prescribed Yes No Has offloadiing in place as prescribed No No Experienced any changes in pain level or No No management Pain Scale: 0-10 Numeric Is Patient Pain Free? Yes Yes WC - Nurse 1 - General Ulcer Measurement Start: 12/09/23 09:33 Freq: Status: Active Protocol: Activity Type Activity Date Activity User E-sign Co-sign Detail Recorded Client Recorded Date Recorded By Document 12/09/23 09:33 RB Desktop 12/09/23 09:36 RB Document 12/23/23 09:38 RB Desktop 12/23/23 09:41 RB 12/09/23 12/23/23 09:33 09:38 Wound Center Nurse 1 #18 Left medial LE cluster -Combined with other wound No No -Current Size (cm) - Length 9 20.2 -Current Size (cm) - Width 16 10.5 -Current Size (cm) - Depth 0.1 0.1 -Total Square Cm 144 212.10 -Photo Taken Yes -Tunneling No No -Undermining/Tunneling No No -Circular Undermining No No -Exudate Amt Large Medium -Exudate Type Serosanguineous Serosanguineous -Wound Margin Distinct, Distinct, Outline Outline Attached Attached -Granulation Amt Medium (34-66%) Medium (34-66%) -Granulation Quality Bertha Bertha -Slough/Fibrin Yes Yes -Necrosis Amt Medium (34-66%) Medium (34-66%) -Necrotic Tissue Type Adherent Slough Adherent Slough -Structure Exposed N/A N/A -Texture (Marie-wound Skin Appearance) Assessed, Assessed Localized Edema -Moisture (Marie-wound Skin Appearance) Assessed Assessed -Color (Marie-wound Skin Appearance) Erythema Hemosiderin Staining -Temperature (Marie-wound Skin No Abnormality No Abnormality Appearance) (Pt Warm) (Pt Warm) -Tenderness on Palpation (Marei-wound No No Skin Appearance) -Ulcer Cleansing Wound Cleanser Wound Cleanser -Foul Odor after Cleansing No No -Anesthetic Used 4% Lidocaine 4% Lidocaine Solution Solution Lower Limb Edema Present Yes Yes Left Calf (cm) 42 42.5 Left Ankle (cm) 30 31 WC - Nurse 2 - General Ulcer CM Notes Start: 12/09/23 09:33 Freq: Status: Active Protocol: Activity Type Activity Date Activity User E-sign Co-sign Detail Recorded Client Recorded Date Recorded By Document 12/09/23 10:37 PL [id number] 12/09/23 10:38 PL Document 12/23/23 10:09 Desktop 12/23/23 10:13 12/09/23 12/23/23 10:37 10:09 Wound Center Nurse 2 #18 Left medial LE cluster -Time 09:42 10:10 -Correct Patient Yes Yes -Correct Side, Site, Position Yes Yes -Correct Procedure Yes Yes -Procedure Performed Yes Yes -Type of Procedure Debridement Debridement -Clinical Debridement Subcutaneous Subcutaneous -Tissue Removed Subcutaneous Subcutaneous -Post Debridement (cm) - Length 10 10 -Post Debridement (cm) - Width 20 17.5 -Post Debridement (cm) - Depth 0.2 0.1 -Total Square (Post) (cm) 200 175.0 -Area of Debridement (cm) - Length 10 10 -Area of Debridement (cm) - Width 20 17.5 -Total Square (Area) (cm) 200 175.0 -Tunneling No No -Undermining/Tunneling No No -Circular Undermining No No -Wound/Ulcer Outcome Not Healed Not Healed -Ulcer Cleansing Rinsed/ Rinsed/ Irrigated with Irrigated with Saline Saline -Foul Odor after Cleansing No No -Bioengineered Tissue No No -Bleeding Controlled with Pressure Pressure -Treatment Response Procedure Tolerated Well -Debridement - Subq, 1st 20sq cm Yes Yes -Debridement, SubQ, ea addt'l 20sq cm 9 8 or part thereof Pain Scale: 0-10 Numeric Is Patient Pain Free? Yes Yes WC - Nurse 3 - General Ulcer D/C NN Start: 12/09/23 09:33 Freq: Status: Active Protocol: Activity Type Activity Date Activity User E-sign Co-sign Detail Recorded Client Recorded Date Recorded By Document 12/09/23 11:45 RB [id number] 12/09/23 11:46 RB Document 12/23/23 10:22 KW Desktop 12/23/23 10:37 KW 12/09/23 12/23/23 11:45 10:22 Wound Care Center Nurse 3 #18 Left medial LE cluster -Ulcer Cleansing Wound Cleanser -Primary Dressing Applied Aquacel Extra Aquacel Extra, Optilok 8x12 -Other Dressing PT'S OWN SUPERABSORBER -Primary Dressing Covered/Secured with Dry Gauze & Dry Gauze & Roll Gauze, Roll Gauze, Secured with Secured with Tape Tape -Aquacel Extra 2 1 -Optilok 8x12 1 Right -Tubular Bandage Single Layer Single Layer -Size of Tubigrip Used Size E Size E -Size E ($) 1 1 Left -Tubular Bandage Single Layer -Size of Tubigrip Used Size E -Size E ($) 1 Treatment Response Procedure Tolerated Well Pain Scale: 0-10 Numeric Is Patient Pain Free? Yes Yes WC - Visit Discharge Discharge Condition Stable Stable Ambulatory Status Ambulatory, Walker Walker Transportation Private Auto Private Auto Medication Reconcilliation completed & No No provided to patient/care provider Clinical Summary of Care Provided Yes Yes Assessment/Plan Assessment/Plan (1) Lymphedema: CODE(S): I89.0 - Lymphedema, not elsewhere classified (2) Hypertension: CODE(S): I10 - Essential (primary) hypertension QUALIFIERS: Hypertension type: primary hypertension Qualified Code(s): I10 - Essential (primary) hypertension (3) Hyperlipidemia: CODE(S): E78.5 - Hyperlipidemia, unspecified QUALIFIERS: Hyperlipidemia type: mixed hyperlipidemia Qualified Code(s): E78.2 - Mixed hyperlipidemia (4) History of DVT (deep vein thrombosis): CODE(S): Z86.718 - Personal history of other venous thrombosis and embolism (5) Venous insufficiency (chronic) (peripheral): CODE(S): I87.2 - Venous insufficiency (chronic) (peripheral) (6) Venous ulcer of left lower extremity with varicose veins: CODE(S): I83.029 - Varicose veins of left lower extremity with ulcer of unspecified site (7) Edema: CODE(S): R60.9 - Edema, unspecified QUALIFIERS: Edema type: unspecified Qualified Code(s): R60.9 - Edema, unspecified PLAN: Plan Evaluation and debridement of left medial LE ulcer performed today in clinic as annotated above. At home wound-care instructions: Will dress his ulcers with Aquacel Extra daily and cover with super absorber and gauze. If his ulcers are dry then would decrease frequency of changes to every other day. Continue compression with D tubigrips b/l. Due to the delayed progress in wound healing of his venous ulcers, we discussed applying for advanced wound healing product for healing his ulcer. Due to the size of his ulcer, Therask[employer] application approval is being requested from his insurance as it is medically necessary for salvaging his limb and healing his ulcer. He underwent 2 applications of Theraskin to this ulcer. Since application of Theraskin he has had much improvement in epitheliazation of his ulcer even though the overall size is not significantly changed there is progress. Off-loading: The patient was instructed to avoid pressure and friction on the affected areas. Reposition every 2 hours at minimum. Avoid prolonged standing and/or dangling of legs. When seated, feet should be elevated at chest level. Frequent ambulation is encouraged. Encouraged lymphedema pump use. Diet: Patient encouraged to increase protein intake while taking caution to avoid high carbohydrate and/or sugar intake. Labs/cultures/imaging: Wound culture showed 1+ Pseudomonas that is sensitive to Levofloxacin and completed treatment on 08/16/23. Follow-up: Return in 1 week for wound care follow up and have secondary dressing changed by home health Tuesday and Tuesday. Return sooner or report to the emergency room should symptoms worsen, or new symptoms arise. Note: [employer] speech recognition hadoop application developer software was used to create portions of this document. Sound-alike and misspelled words, as well as other hadoop application developer errors may be contained in the documentation.
[2023-12-30 10:22] VITALS: BP 137/82; PULSE 68; RESP 18; TEMP 35.2
--- NOTE | 2023-12-30 12:23 | PN.PCM_ITS ---
History of Present Illness Date of Service: 12/30/23 Chief Complaint: venous ulcers of left lower extremity History of Wound: Mauricio is a 68 yo gentleman who is here today for evaluation of ulcers to to his bilateral lower legs. He has been treated multiple times in the past at the wound healing center for similar ulcers. The left LE ulcer started after he developed increased swelling and blisters of left leg in October and the right leg started sometime at the end of October. He was seen at PCP's office a culture was taken and it was resistant to several antibiotics. He was treated initially with Levaquin but had myalgias and then was treated with doxycycline which he finished 2 days ago. He denies improvement and is having swelling to his left calf and thigh. He has been having swelling to both lower extremities for many years and it has worsened over the last few months. He has not been compliant with compression. He has had increased pain especially in the left leg. He has clear yellow drainage and redness without odor or warmth. He is anti- coagulated on coumadin. He has been washing with Dial soap and witch ifrah. He had been using Collagen at times and using Calcium Alginate and covering with ABD pads during October. He was treated with 3M compression and Aquacel Ag. He was referred to the wound center for ongoing treatment. His ulcers have moderate to heavy drainage. He was recently hospitalized for cellulitis and edema for the last 10 days. He was in the hospital from 11/30/22 until 12/09/22 for treatment of cellulitis and edema. He underwent treatment with Vancomycin and IV lasix and compression. Discharged on 12/09/22. He returned to his assisted living apartment on Tuesday12/21/22. Subjective Subjective Mauricio is a 68-year-old male with longstanding history of chronic venous ulceration to the left lower extremity. He has been using Aquacel Extra and tolerating treatment well. There has been improvement in his ulcer overall. He reports significantly decreased drainage. He continues to use super absorber for heavy drainage and size D Tubigrips for compression. 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 He continues to use his lymphedema pumps but continues to have pain with use of these pumps. Objective Data Objective Data Vital Signs: Vital Signs Temp Pulse Resp BP 95.4 F L 68 18 137/82 H 12/30/23 10:22 12/30/23 10:22 12/30/23 10:22 12/30/23 10:22 Physical Exam Const alert, oriented x3 and no apparent distress General Appearance: cooperative and comfortable HEENT normocephalic and head/scalp atraumatic Lymph Lymphatic: lymphedema moderate Resp normal respiratory effort Effort and Inspection: able to speak in complete sentences Cardio regular rate and regular rhythm Extremity General Extremity: edema bilateral lower extremity Details: severe Skin Wounds: wounds noted Wound Narrative: as in clinical panel Psych mental status grossly normal, thought process normal, cooperative and affect normal Debridement Note Debridement Note Wound debrided: left medial LE ulcer Laterality: Left Type of Debridement: Excisional debridement Anesthesia Used: 4% Lidocaine Solution and Cetacaine Depth: Down to and including healthy tissue and in the subcutaneous layer Percentage of wound debrided: 100 Instrument Used: 5mm curette Tissue Removed: Yellow slough, devitalized tissue Severity: Fat Layer Exposed Amount of bleeding with debridement: Mild Bleeding Controlled with: Compression and gauze Patient tolerated procedure: Patient tolerated procedure well Post-Debridement Measurements and Additional Note: Post-Debridement Measurements/Treatment [facility] Nurse 1 - General Ulcer Assessment Start: 12/09/23 09:33 Freq: Status: Active Protocol: .MARIAJOSE Activity Type Activity Date Activity User E-sign Co-sign Detail Recorded Client Recorded Date Recorded By Document 12/09/23 09:33 RB Desktop 12/09/23 09:36 RB Document 12/23/23 09:38 RB Desktop 12/23/23 09:41 RB Document 12/30/23 10:22 VT Desktop 12/30/23 10:34 VT 12/09/23 12/23/23 12/30/23 09:33 09:38 10:22 - Today's Visit Information Type of service Follow-up Visit Follow-up Visit Follow-up Visit (Physician/BODY CARE MANAGER (Physician/BODY CARE MANAGER (Physician/BODY CARE MANAGER ) ) ) Arrival Mode Ambulatory, Ambulatory, Ambulatory Walker Walker Transfer Assistance None None None Patient Identification Verified (Name & Yes Yes ) Patient Requires Transmission-Based No No No Precautions Vital Signs Temperature (97.8 F-99.1 F) 96.5 F L 96.5 F L 95.4 F L Temperature Source Temporal Temporal Temporal Pulse Rate (60-100) 82 70 68 Pulse Location Monitor Monitor Monitor Respiratory Rate (12-18) 18 18 18 Respiratory rate source Observation Observation Observation Blood Pressure (90/60-120/80) 122/80 H 145/87 H 137/82 H Blood Pressure Mean (mm Hg) 94 106 100 Source Monitor Monitor Monitor Position Semi-Fowlers Semi-Fowlers Semi-Fowlers Blood Pressure Location Left Arm Left Arm Left Arm History Since Last Visit- (Skip if this is Patient's initial visit) Have you changed medications since your No No No last visit? Any new allergies or adverse reactions No No No Had a fall/change in ADL's that may No No No increase risk of falls Signs or symptoms of abuse and/or No No No neglect since last visit Have you been in the hospital since your No No No last visit? Has dressing in place as prescribed Yes Yes Yes Has compression in place as prescribed Yes No Yes Has offloadiing in place as prescribed No No No Experienced any changes in pain level or No No No management Pain Scale: 0-10 Numeric Is Patient Pain Free? Yes Yes Yes WC - Nurse 1 - General Ulcer Measurement Start: 12/09/23 09:33 Freq: Status: Active Protocol: Activity Type Activity Date Activity User E-sign Co-sign Detail Recorded Client Recorded Date Recorded By Document 12/09/23 09:33 RB Desktop 12/09/23 09:36 RB Document 12/23/23 09:38 RB Desktop 12/23/23 09:41 RB Document 12/30/23 10:22 MT Desktop 12/30/23 10:34 MT 12/09/23 12/23/23 12/30/23 09:33 09:38 10:22 Wound Center Nurse 1 #18 Left medial LE cluster -Combined with other wound No No No -Current Size (cm) - Length 9 20.2 18 -Current Size (cm) - Width 16 10.5 9.2 -Current Size (cm) - Depth 0.1 0.1 0.1 -Total Square Cm 144 212.10 165.6 -Photo Taken Yes -Tunneling No No No -Undermining/Tunneling No No No -Circular Undermining No No No -Exudate Amt Large Medium Large -Exudate Type Serosanguineous Serosanguineous Serosanguineous -Wound Margin Distinct, Distinct, Distinct, Outline Outline Outline Attached Attached Attached -Granulation Amt Medium (34-66%) Medium (34-66%) Medium (34-66%) -Granulation Quality Olympia Fields Olympia Fields Olympia Fields -Slough/Fibrin Yes Yes Yes -Necrosis Amt Medium (34-66%) Medium (34-66%) Medium (34-66%) -Necrotic Tissue Type Adherent Slough Adherent Slough Adherent Slough -Structure Exposed N/A N/A N/A -Texture (Marie-wound Skin Appearance) Assessed, Assessed Assessed, Localized Edema Scarring -Moisture (Marie-wound Skin Appearance) Assessed Assessed Assessed -Color (Marie-wound Skin Appearance) Erythema Hemosiderin Assessed Staining -Temperature (Marie-wound Skin No Abnormality No Abnormality No Abnormality Appearance) (Pt Warm) (Pt Warm) (Pt Warm) -Tenderness on Palpation (Marie-wound No No No Skin Appearance) -Ulcer Cleansing Wound Cleanser Wound Cleanser Wound Cleanser -Foul Odor after Cleansing No No No -Anesthetic Used 4% Lidocaine 4% Lidocaine 4% Lidocaine Solution Solution Solution Lower Limb Edema Present Yes Yes Left Calf (cm) 42 42.5 Left Ankle (cm) 30 31 WC - Nurse 2 - General Ulcer CM Notes Start: 12/09/23 09:33 Freq: Status: Active Protocol: Activity Type Activity Date Activity User E-sign Co-sign Detail Recorded Client Recorded Date Recorded By Document 12/09/23 10:37 [email or web address] 12/09/23 10:38 PL Document 12/23/23 10:09 Desktop 12/23/23 10:13 Document 12/30/23 10:49 Desktop 12/30/23 11:09 12/09/23 12/23/23 12/30/23 10:37 10:09 10:49 Wound Center Nurse 2 #18 Left medial LE cluster -Time 09:42 10:10 10:49 -Correct Patient Yes Yes Yes -Correct Side, Site, Position Yes Yes Yes -Correct Procedure Yes Yes Yes -Procedure Performed Yes Yes Yes -Type of Procedure Debridement Debridement Debridement -Clinical Debridement Subcutaneous Subcutaneous Subcutaneous -Tissue Removed Subcutaneous Subcutaneous Subcutaneous -Post Debridement (cm) - Length 10 10 9.5 -Post Debridement (cm) - Width 20 17.5 18 -Post Debridement (cm) - Depth 0.2 0.1 0.1 -Total Square (Post) (cm) 200 175.0 171.0 -Area of Debridement (cm) - Length 10 10 9.5 -Area of Debridement (cm) - Width 20 17.5 15 -Total Square (Area) (cm) 200 175.0 142.5 -Tunneling No No No -Undermining/Tunneling No No No -Circular Undermining No No No -Wound/Ulcer Outcome Not Healed Not Healed Not Healed -Ulcer Cleansing Rinsed/ Rinsed/ Rinsed/ Irrigated with Irrigated with Irrigated with Saline Saline Saline -Foul Odor after Cleansing No No No -Bioengineered Tissue No No No -Bleeding Controlled with Pressure Pressure Pressure -Treatment Response Procedure Procedure Tolerated Well Tolerated Well -Debridement - Subq, 1st 20sq cm Yes Yes Yes -Debridement, SubQ, ea addt'l 20sq cm 9 8 8 or part thereof Pain Scale: 0-10 Numeric Is Patient Pain Free? Yes Yes Yes WC - Nurse 3 - General Ulcer D/C NN Start: 12/09/23 09:33 Freq: Status: Active Protocol: Activity Type Activity Date Activity User E-sign Co-sign Detail Recorded Client Recorded Date Recorded By Document 12/09/23 11:45 RB [id number] 12/09/23 11:46 RB Document 12/23/23 10:22 KW Desktop 12/23/23 10:37 KW Document 12/30/23 11:26 KW Desktop 12/30/23 11:27 KW 12/09/23 12/23/23 12/30/23 11:45 10:22 11:26 Wound Care Center Nurse 3 #18 Left medial LE cluster -Ulcer Cleansing Wound Cleanser -Primary Dressing Applied Aquacel Extra Aquacel Extra, Fibracol Plus Optilok 8x12 4x4,Optilok 8x12 -Other Dressing PT'S OWN SUPERABSORBER -Primary Dressing Covered/Secured with Dry Gauze & Dry Gauze & Dry Gauze & Roll Gauze, Roll Gauze, Roll Gauze, Secured with Secured with Secured with Tape Tape Tape -Aquacel Extra 2 1 -Fibracol Plus 4x4 1 -Optilok 8x12 1 1 Right -Tubular Bandage Single Layer Single Layer Single Layer -Size of Tubigrip Used Size E Size E Size E -Size E ($) 1 1 1 Left -Tubular Bandage Single Layer Single Layer -Size of Tubigrip Used Size E Size E -Size E ($) 1 1 Treatment Response Procedure Tolerated Well Pain Scale: 0-10 Numeric Is Patient Pain Free? Yes Yes Yes WC - Visit Discharge Discharge Condition Stable Stable Stable Ambulatory Status Ambulatory, Walker Walker Walker Transportation Private Auto Private Auto Medication Reconcilliation completed & No No No provided to patient/care provider Clinical Summary of Care Provided Yes Yes Yes Assessment/Plan Assessment/Plan (1) Lymphedema: CODE(S): I89.0 - Lymphedema, not elsewhere classified (2) Hypertension: CODE(S): I10 - Essential (primary) hypertension QUALIFIERS: Hypertension type: primary hypertension Qualified Code(s): I10 - Essential (primary) hypertension (3) Hyperlipidemia: CODE(S): E78.5 - Hyperlipidemia, unspecified QUALIFIERS: Hyperlipidemia type: mixed hyperlipidemia Qualified Code(s): E78.2 - Mixed hyperlipidemia (4) History of DVT (deep vein thrombosis): CODE(S): Z86.718 - Personal history of other venous thrombosis and embolism (5) Venous insufficiency (chronic) (peripheral): CODE(S): I87.2 - Venous insufficiency (chronic) (peripheral) (6) Venous ulcer of left lower extremity with varicose veins: CODE(S): I83.029 - Varicose veins of left lower extremity with ulcer of unspecified site (7) Edema: CODE(S): R60.9 - Edema, unspecified QUALIFIERS: Edema type: unspecified Qualified Code(s): R60.9 - Edema, unspecified PLAN: Plan Evaluation and debridement of left medial LE ulcer performed today in clinic as annotated above. At home wound-care instructions: Will dress his ulcers with Fibracol and Aquacel Extra daily and cover with super absorber and gauze. If his ulcers are dry then would decrease frequency of changes to every other day. Continue compression with D tubigrips b/l. Due to the delayed progress in wound healing of his venous ulcers, we discussed applying for advanced wound healing product for healing his ulcer. Due to the size of his ulcer, Theraskin application approval is being requested from his insurance as it is medically necessary for salvaging his limb and healing his ulcer. He underwent 2 applications of Theraskin to this ulcer. Since application of Theraskin he has had much improvement in epitheliazation of his ulcer even though the overall size is not significantly changed there is progress. Off-loading: The patient was instructed to avoid pressure and friction on the affected areas. Reposition every 2 hours at minimum. Avoid prolonged standing and/or dangling of legs. When seated, feet should be elevated at chest level. Frequent ambulation is encouraged. Encouraged lymphedema pump use. Diet: Patient encouraged to increase protein intake while taking caution to avoid high carbohydrate and/or sugar intake. Labs/cultures/imaging: Wound culture showed 1+ Pseudomonas that is sensitive to Levofloxacin and completed treatment on 08/16/23. Follow-up: Return in 1 week for wound care follow up and have secondary dressing changed by home health Tuesday and Tuesday. Return sooner or report to the emergency room should symptoms worsen, or new symptoms arise. Note: [employer] speech recognition inspecting machine adjuster software was used to create portions of this document. Sound-alike and misspelled words, as well as other inspecting machine adjuster errors may be contained in the documentation.
[2024-01-06 09:40] VITALS: BP 110/74; PULSE 60; RESP 18; TEMP 35.7
--- NOTE | 2024-01-06 13:44 | PCM.WC.PN ---
History of Present Illness Date of Service: 01/06/24 Chief Complaint: venous ulcers of left lower extremity History of Wound: Mauricio is a 68 yo gentleman who is here today for evaluation of ulcers to to his bilateral lower legs. He has been treated multiple times in the past at the wound healing center for similar ulcers. The left LE ulcer started after he developed increased swelling and blisters of left leg in October and the right leg started sometime at the end of October. He was seen at PCP's office a culture was taken and it was resistant to several antibiotics. He was treated initially with Levaquin but had myalgias and then was treated with doxycycline which he finished 2 days ago. He denies improvement and is having swelling to his left calf and thigh. He has been having swelling to both lower extremities for many years and it has worsened over the last few months. He has not been compliant with compression. He has had increased pain especially in the left leg. He has clear yellow drainage and redness without odor or warmth. He is anti-coagulated on coumadin. He has been washing with Dial soap and witch ifrah. He had been using Collagen at times and using Calcium Alginate and covering with ABD pads during October. He was treated with 3M compression and Aquacel Ag. He was referred to the wound center for ongoing treatment. His ulcers have moderate to heavy drainage. He was recently hospitalized for cellulitis and edema for the last 10 days. He was in the hospital from 11/30/22 until 12/09/22 for treatment of cellulitis and edema. He underwent treatment with Vancomycin and IV lasix and compression. Discharged on 12/09/22. He returned to his assisted living apartment on Tuesday12/21/22. Subjective Subjective Mauricio is a 68-year-old male with longstanding history of chronic venous ulceration to the left lower extremity. He has been using Fibracol and tolerating it ok but did experience burning. There has been improvement in his ulcer overall. He reports significantly decreased drainage. He continues to use super absorber for heavy drainage and size D Tubigrips for compression. 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 He continues to use his lymphedema pumps but continues to have pain with use of these pumps. Objective Data Objective Data Vital Signs: Vital Signs Temp Pulse Resp BP O2 Del Method 96.3 F L 60 18 110/74 Room Air 01/06/24 09:40 01/06/24 09:40 01/06/24 09:40 01/06/24 09:40 01/06/24 09:40 Oxygen Delivery Method Room Air Physical Exam Const alert, oriented x3 and no apparent distress General Appearance: cooperative and comfortable HEENT normocephalic and head/scalp atraumatic Lymph Lymphatic: lymphedema moderate Resp normal respiratory effort Effort and Inspection: able to speak in complete sentences Cardio regular rate and regular rhythm Extremity General Extremity: edema bilateral lower extremity Details: severe Skin Wounds: wounds noted Wound Narrative: as in clinical panel Psych mental status grossly normal, thought process normal, cooperative and affect normal Debridement Note Debridement Note Wound debrided: left medial LE ulcer Laterality: Left Type of Debridement: Excisional debridement Anesthesia Used: 4% Lidocaine Solution and Cetacaine Depth: Down to and including healthy tissue and in the subcutaneous layer Percentage of wound debrided: 100 Instrument Used: - (Misonix ultrasonic debridement) Tissue Removed: Yellow slough, devitalized tissue Severity: Fat Layer Exposed Amount of bleeding with debridement: Mild Bleeding Controlled with: Compression and gauze Patient tolerated procedure: Patient tolerated procedure well Post-Debridement Measurements and Additional Note: Post-Debridement Measurements/Treatment - Nurse 1 - General Ulcer Assessment Start: 12/09/23 09:33 Freq: Status: Active Protocol: ONDINA Activity Type Activity Date Activity User E-sign Co-sign Detail Recorded Client Recorded Date Recorded By Document 12/09/23 09:33 RB Desktop 12/09/23 09:36 RB Document 12/23/23 09:38 RB Desktop 12/23/23 09:41 RB Document 12/30/23 10:22 MT Desktop 12/30/23 10:34 MT Document 01/06/24 09:40 KW Desktop 01/06/24 09:50 KW 12/09/23 12/23/23 12/30/23 09:33 09:38 10:22 - Today's Visit Information Type of service Follow-up Visit Follow-up Visit Follow-up Visit (Physician/FAMILY RESOURCE MANAGEMENT SPECIALIST (Physician/FAMILY RESOURCE MANAGEMENT SPECIALIST (Physician/FAMILY RESOURCE MANAGEMENT SPECIALIST ) ) ) Arrival Mode Ambulatory, Ambulatory, Ambulatory Walker Walker Transfer Assistance None None None Patient Identification Verified (Name & Yes Yes ) Patient Requires Transmission-Based No No No Precautions Vital Signs Temperature (97.8 F-99.1 F) 96.5 F L 96.5 F L 95.4 F L Temperature Source Temporal Temporal Temporal Pulse Rate (60-100) 82 70 68 Pulse Location Monitor Monitor Monitor Respiratory Rate (12-18) 18 18 18 Respiratory rate source Observation Observation Observation Oxygen Delivery Method Blood Pressure (90/60-120/80) 122/80 H 145/87 H 137/82 H Blood Pressure Mean (mm Hg) 94 106 100 Source Monitor Monitor Monitor Position Semi-Fowlers Semi-Fowlers Semi-Fowlers Blood Pressure Location Left Arm Left Arm Left Arm History Since Last Visit- (Skip if this is Patient's initial visit) Have you changed medications since your No No No last visit? Any new allergies or adverse reactions No No No Had a fall/change in ADL's that may No No No increase risk of falls Signs or symptoms of abuse and/or No No No neglect since last visit Have you been in the hospital since your No No No last visit? Has dressing in place as prescribed Yes Yes Yes Has compression in place as prescribed Yes No Yes Has offloadiing in place as prescribed No No No Experienced any changes in pain level or No No No management Left Footwear Right Footwear Pain Scale: 0-10 Numeric Is Patient Pain Free? Yes Yes Yes 01/06/24 09:40 WC - Today's Visit Information Type of service Follow-up Visit (Physician/FAMILY RESOURCE MANAGEMENT SPECIALIST ) Arrival Mode Ambulatory, Walker Transfer Assistance Patient Identification Verified (Name & Yes ) Patient Requires Transmission-Based Precautions Vital Signs Temperature (97.8 F-99.1 F) 96.3 F L Temperature Source Temporal Pulse Rate (60-100) 60 Pulse Location Monitor Respiratory Rate (12-18) 18 Respiratory rate source Observation Oxygen Delivery Method Room Air Blood Pressure (90/60-120/80) 110/74 Blood Pressure Mean (mm Hg) 86 Source Monitor Position Semi-Fowlers Blood Pressure Location Right Arm History Since Last Visit- (Skip if this is Patient's initial visit) Have you changed medications since your No last visit? Any new allergies or adverse reactions No Had a fall/change in ADL's that may No increase risk of falls Signs or symptoms of abuse and/or No neglect since last visit Have you been in the hospital since your No last visit? Has dressing in place as prescribed Yes Has compression in place as prescribed Yes Has offloadiing in place as prescribed N/A Experienced any changes in pain level or No management Left Footwear Regular Shoe Right Footwear Regular Shoe Pain Scale: 0-10 Numeric Is Patient Pain Free? Yes WC - Nurse 1 - General Ulcer Measurement Start: 12/09/23 09:33 Freq: Status: Active Protocol: Activity Type Activity Date Activity User E-sign Co-sign Detail Recorded Client Recorded Date Recorded By Document 12/09/23 09:33 RB Desktop 12/09/23 09:36 RB Document 12/23/23 09:38 RB Desktop 12/23/23 09:41 RB Document 12/30/23 10:22 MT Desktop 12/30/23 10:34 MT Document 01/06/24 09:40 KW Desktop 01/06/24 09:50 KW 12/09/23 12/23/23 12/30/23 09:33 09:38 10:22 Wound Center Nurse 1 #18 Left medial LE cluster -Combined with other wound No No No -Current Size (cm) - Length 9 20.2 18 -Current Size (cm) - Width 16 10.5 9.2 -Current Size (cm) - Depth 0.1 0.1 0.1 -Total Square Cm 144 212.10 165.6 -Photo Taken Yes -Tunneling No No No -Undermining/Tunneling No No No -Circular Undermining No No No -Exudate Amt Large Medium Large -Exudate Type Serosanguineous Serosanguineous Serosanguineous -Wound Margin Distinct, Distinct, Distinct, Outline Outline Outline Attached Attached Attached -Granulation Amt Medium (34-66%) Medium (34-66%) Medium (34-66%) -Granulation Quality [place] -Slough/Fibrin Yes Yes Yes -Necrosis Amt Medium (34-66%) Medium (34-66%) Medium (34-66%) -Necrotic Tissue Type Adherent Slough Adherent Slough Adherent Slough -Structure Exposed N/A N/A N/A -Texture (Marie-wound Skin Appearance) Assessed, Assessed Assessed, Localized Edema Scarring -Moisture (Marie-wound Skin Appearance) Assessed Assessed Assessed -Color (Marie-wound Skin Appearance) Erythema Hemosiderin Assessed Staining -Temperature (Marie-wound Skin No Abnormality No Abnormality No Abnormality Appearance) (Pt Warm) (Pt Warm) (Pt Warm) -Tenderness on Palpation (Marie-wound No No No Skin Appearance) -Ulcer Cleansing Wound Cleanser Wound Cleanser Wound Cleanser -Foul Odor after Cleansing No No No -Anesthetic Used 4% Lidocaine 4% Lidocaine 4% Lidocaine Solution Solution Solution Lower Limb Edema Present Yes Yes Left Calf (cm) 42 42.5 Left Ankle (cm) 30 31 01/06/24 09:40 Wound Center Nurse 1 #18 Left medial LE cluster -Combined with other wound -Current Size (cm) - Length 9 -Current Size (cm) - Width 20 -Current Size (cm) - Depth 0.1 -Total Square Cm 180 -Photo Taken -Tunneling -Undermining/Tunneling -Circular Undermining -Exudate Amt Medium -Exudate Type Serosanguineous -Wound Margin Distinct, Outline Attached -Granulation Amt Medium (34-66%) -Granulation Quality Red -Slough/Fibrin -Necrosis Amt Medium (34-66%) -Necrotic Tissue Type Adherent Slough -Structure Exposed N/A -Texture (Marie-wound Skin Appearance) Scarring -Moisture (Marie-wound Skin Appearance) No Abnormality -Color (Marie-wound Skin Appearance) Erythema, Hemosiderin Staining -Temperature (Marie-wound Skin No Abnormality Appearance) (Pt Warm) -Tenderness on Palpation (Marie-wound No Skin Appearance) -Ulcer Cleansing Soap and Water -Foul Odor after Cleansing No -Anesthetic Used 4% Lidocaine Solution Lower Limb Edema Present Left Calf (cm) 40.5 Left Ankle (cm) 28.5 WC - Nurse 2 - General Ulcer CM Notes Start: 12/09/23 09:33 Freq: Status: Active Protocol: Activity Type Activity Date Activity User E-sign Co-sign Detail Recorded Client Recorded Date Recorded By Document 12/09/23 10:37 PL [id number] 12/09/23 10:38 PL Document 12/23/23 10:09 Desktop 12/23/23 10:13 Document 12/30/23 10:49 Desktop 12/30/23 11:09 Document 01/06/24 10:06 Desktop 01/06/24 10:22 12/09/23 12/23/23 12/30/23 10:37 10:09 10:49 Wound Center Nurse 2 #18 Left medial LE cluster -Time 09:42 10:10 10:49 -Correct Patient Yes Yes Yes -Correct Side, Site, Position Yes Yes Yes -Correct Procedure Yes Yes Yes -Procedure Performed Yes Yes Yes -Type of Procedure Debridement Debridement Debridement -Clinical Debridement Subcutaneous Subcutaneous Subcutaneous -Tissue Removed Subcutaneous Subcutaneous Subcutaneous -Post Debridement (cm) - Length 10 10 9.5 -Post Debridement (cm) - Width 20 17.5 18 -Post Debridement (cm) - Depth 0.2 0.1 0.1 -Total Square (Post) (cm) 200 175.0 171.0 -Area of Debridement (cm) - Length 10 10 9.5 -Area of Debridement (cm) - Width 20 17.5 15 -Total Square (Area) (cm) 200 175.0 142.5 -Tunneling No No No -Undermining/Tunneling No No No -Circular Undermining No No No -Wound/Ulcer Outcome Not Healed Not Healed Not Healed -Ulcer Cleansing Rinsed/ Rinsed/ Rinsed/ Irrigated with Irrigated with Irrigated with Saline Saline Saline -Foul Odor after Cleansing No No No -Bioengineered Tissue No No No -Bleeding Controlled with Pressure Pressure Pressure -Treatment Response Procedure Procedure Tolerated Well Tolerated Well -Debridement - Subq, 1st 20sq cm Yes Yes Yes -Debridement, SubQ, ea addt'l 20sq cm 9 8 8 or part thereof Pain Scale: 0-10 Numeric Is Patient Pain Free? Yes Yes Yes 01/06/24 10:06 Wound Center Nurse 2 #18 Left medial LE cluster -Time 10:09 -Correct Patient Yes -Correct Side, Site, Position Yes -Correct Procedure Yes -Procedure Performed Yes -Type of Procedure Debridement -Clinical Debridement Subcutaneous -Tissue Removed Subcutaneous -Post Debridement (cm) - Length 9.2 -Post Debridement (cm) - Width 18.0 -Post Debridement (cm) - Depth 0.1 -Total Square (Post) (cm) 165.60 -Area of Debridement (cm) - Length 9.2 -Area of Debridement (cm) - Width 18.0 -Total Square (Area) (cm) 165.60 -Tunneling No -Undermining/Tunneling No -Circular Undermining No -Wound/Ulcer Outcome Not Healed -Ulcer Cleansing Rinsed/ Irrigated with Saline -Foul Odor after Cleansing No -Bioengineered Tissue No -Bleeding Controlled with Pressure -Treatment Response Procedure Tolerated Well -Debridement - Subq, 1st 20sq cm Yes -Debridement, SubQ, ea addt'l 20sq cm 8 or part thereof Pain Scale: 0-10 Numeric Is Patient Pain Free? Yes - Nurse 3 - General Ulcer D/C NN Start: 12/09/23 09:33 Freq: Status: Active Protocol: Activity Type Activity Date Activity User E-sign Co-sign Detail Recorded Client Recorded Date Recorded By Document 12/09/23 11:45 RB [id number] 12/09/23 11:46 RB Document 12/23/23 10:22 KW Desktop 12/23/23 10:37 KW Document 12/30/23 11:26 KW Desktop 12/30/23 11:27 KW Document 01/06/24 10:35 CP Desktop 01/06/24 10:36 CP 12/09/23 12/23/23 12/30/23 11:45 10:22 11:26 Wound Care Center Nurse 3 #18 Left medial LE cluster -Ulcer Cleansing Wound Cleanser -Primary Dressing Applied Aquacel Extra Aquacel Extra, Fibracol Plus Optilok 8x12 4x4,Optilok 8x12 -Other Dressing PT'S OWN SUPERABSORBER -Primary Dressing Covered/Secured with Dry Gauze & Dry Gauze & Dry Gauze & Roll Gauze, Roll Gauze, Roll Gauze, Secured with Secured with Secured with Tape Tape Tape -Aquacel Extra 2 1 -Fibracol Plus 4x4 1 -Optilok 8x12 1 1 Right -Tubular Bandage Single Layer Single Layer Single Layer -Size of Tubigrip Used Size E Size E Size E -Size E ($) 1 1 1 Left -Tubular Bandage Single Layer Single Layer -Size of Tubigrip Used Size E Size E -Size E ($) 1 1 Treatment Response Procedure Tolerated Well Pain Scale: 0-10 Numeric Is Patient Pain Free? Yes Yes Yes - Visit Discharge Discharge Condition Stable Stable Stable Ambulatory Status Ambulatory, Walker Walker Walker Transportation Private Auto Private Auto Medication Reconcilliation completed & No No No provided to patient/care provider Clinical Summary of Care Provided Yes Yes Yes 01/06/24 10:35 Wound Care Center Nurse 3 #18 Left medial LE cluster -Ulcer Cleansing Rinsed/ Irrigated with Saline -Primary Dressing Applied Aquacel Extra -Other Dressing superabsorber -Primary Dressing Covered/Secured with Dry Gauze -Aquacel Extra 1 -Fibracol Plus 4x4 -Optilok 8x12 Right -Tubular Bandage -Size of Tubigrip Used -Size E ($) Left -Tubular Bandage -Size of Tubigrip Used -Size E ($) Treatment Response Pain Scale: 0-10 Numeric Is Patient Pain Free? Yes WC - Visit Discharge Discharge Condition Stable Ambulatory Status Ambulatory Transportation hosp transport Medication Reconcilliation completed & No provided to patient/care provider Clinical Summary of Care Provided Yes Assessment/Plan Assessment/Plan (1) Lymphedema: CODE(S): I89.0 - Lymphedema, not elsewhere classified (2) Hypertension: CODE(S): I10 - Essential (primary) hypertension QUALIFIERS: Hypertension type: primary hypertension Qualified Code(s): I10 - Essential (primary) hypertension (3) Hyperlipidemia: CODE(S): E78.5 - Hyperlipidemia, unspecified QUALIFIERS: Hyperlipidemia type: mixed hyperlipidemia Qualified Code(s): E78.2 - Mixed hyperlipidemia (4) History of DVT (deep vein thrombosis): CODE(S): Z86.718 - Personal history of other venous thrombosis and embolism (5) Venous insufficiency (chronic) (peripheral): CODE(S): I87.2 - Venous insufficiency (chronic) (peripheral) (6) Venous ulcer of left lower extremity with varicose veins: CODE(S): I83.029 - Varicose veins of left lower extremity with ulcer of unspecified site (7) Edema: CODE(S): R60.9 - Edema, unspecified QUALIFIERS: Edema type: unspecified Qualified Code(s): R60.9 - Edema, unspecified PLAN: Plan Evaluation and debridement of left medial LE ulcer performed today in clinic as annotated above. At home wound-care instructions: Will dress his ulcers with Fibracol every other day and Aquacel Extra on opposite days and cover with super absorber and gauze. If his ulcers are dry then would decrease frequency of changes to every other day. Continue compression with D tubigrips b/l. Due to the delayed progress in wound healing of his venous ulcers, we discussed applying for advanced wound healing product for healing his ulcer. Due to the size of his ulcer, Theraskin application approval is being requested from his insurance as it is medically necessary for salvaging his limb and healing his ulcer. He underwent 2 applications of Theraskin to this ulcer. Since application of Theraskin he has had much improvement in epitheliazation of his ulcer even though the overall size is not significantly changed there is progress. Off-loading: The patient was instructed to avoid pressure and friction on the affected areas. Reposition every 2 hours at minimum. Avoid prolonged standing and/or dangling of legs. When seated, feet should be elevated at chest level. Frequent ambulation is encouraged. Encouraged lymphedema pump use. Diet: Patient encouraged to increase protein intake while taking caution to avoid high carbohydrate and/or sugar intake. Labs/cultures/imaging: Wound culture showed 1+ Pseudomonas that is sensitive to Levofloxacin and completed treatment on 08/16/23. Follow-up: Return in 1 week for wound care follow up and have secondary dressing changed by home health Tuesday and Tuesday. Return sooner or report to the emergency room should symptoms worsen, or new symptoms arise. Note: [employer] speech recognition hand twister software was used to create portions of this document. Sound-alike and misspelled words, as well as other hand twister errors may be contained in the documentation.
== END 2024-01-08 23:59 | disposition home or self-care (01) ==
LOC: WC 09:30
PROVIDERS: PCP Family Medicine; Referring Provider Family Medicine; Visit Provider Family Medicine
DX: I83.029 Varicose veins of left lower extremity with ulcer of unspecified site (principal); L97.922 Non-pressure chronic ulcer of unspecified part of left lower leg with fat layer exposed; M79.605 Pain in left leg; I89.0 Lymphedema, not elsewhere classified; I10 Essential (primary) hypertension; E78.5 Hyperlipidemia, unspecified; Z86.718 Personal history of other venous thrombosis and embolism; R60.9 Edema, unspecified
CPT/HCPCS: 11042; 11045

== ENCOUNTER 2024-02-03 09:30 | Outpatient (RCR) | payer MEDICARE, OTHER, SELFPAY ==
[2024-01-09 00:25] VITALS: BP 110/74; PULSE 60; RESP 18; TEMP 35.7
[2024-01-13 11:06] VITALS: BP 107/65; PULSE 68; RESP 18; TEMP 36.3
--- NOTE | 2024-01-13 13:50 | PN.PCM_ITS ---
History of Present Illness Date of Service: 01/13/24 Chief Complaint: venous ulcers of left lower extremity History of Wound: Mauricio is a 68 yo gentleman who is here today for evaluation of ulcers to to his bilateral lower legs. He has been treated multiple times in the past at the wound healing center for similar ulcers. The left LE ulcer started after he developed increased swelling and blisters of left leg in October and the right leg started sometime at the end of October. He was seen at PCP's office a culture was taken and it was resistant to several antibiotics. He was treated initially with Levaquin but had myalgias and then was treated with doxycycline which he finished 2 days ago. He denies improvement and is having swelling to his left calf and thigh. He has been having swelling to both lower extremities for many years and it has worsened over the last few months. He has not been compliant with compression. He has had increased pain especially in the left leg. He has clear yellow drainage and redness without odor or warmth. He is anti- coagulated on coumadin. He has been washing with Dial soap and witch ifrah. He had been using Collagen at times and using Calcium Alginate and covering with ABD pads during October. He was treated with 3M compression and Aquacel Ag. He was referred to the wound center for ongoing treatment. His ulcers have moderate to heavy drainage. He was recently hospitalized for cellulitis and edema for the last 10 days. He was in the hospital from 11/30/22 until 12/09/22 for treatment of cellulitis and edema. He underwent treatment with Vancomycin and IV lasix and compression. Discharged on 12/09/22. He returned to his assisted living apartment on Tuesday12/21/22. Subjective Subjective Mauricio is a 68-year-old male with longstanding history of chronic venous ulceration to the left lower extremity. He has been using Fibracol and tolerating it ok but did experience burning. There has been improvement in his ulcer overall. He reports significantly decreased drainage. He continues to use super absorber for heavy drainage and size D Tubigrips for compression. 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 He continues to use his lymphedema pumps but continues to have pain with use of these pumps. Objective Data Objective Data Vital Signs: Vital Signs Temp Pulse Resp BP O2 Del Method 97.4 F L 68 18 107/65 Room Air 01/13/24 11:06 01/13/24 11:06 01/13/24 11:06 01/13/24 11:06 01/13/24 11:06 Oxygen Delivery Method Room Air Physical Exam Const alert, oriented x3 and no apparent distress General Appearance: cooperative and comfortable HEENT normocephalic and head/scalp atraumatic Lymph Lymphatic: lymphedema moderate Resp normal respiratory effort Effort and Inspection: able to speak in complete sentences Cardio regular rate and regular rhythm Extremity General Extremity: edema bilateral lower extremity Details: severe Skin Wounds: wounds noted Wound Narrative: as in clinical panel Psych mental status grossly normal, thought process normal, cooperative and affect normal Debridement Note Debridement Note Wound debrided: left medial LE ulcer Laterality: Left Type of Debridement: Excisional debridement Anesthesia Used: 4% Lidocaine Solution and Cetacaine Depth: Down to and including healthy tissue and in the subcutaneous layer Percentage of wound debrided: 100 Instrument Used: - (Misonix ultrasonic debridement) Tissue Removed: Yellow slough, devitalized tissue Severity: Fat Layer Exposed Amount of bleeding with debridement: Mild Bleeding Controlled with: Compression and gauze Patient tolerated procedure: Patient tolerated procedure well Post-Debridement Measurements and Additional Note: Post-Debridement Measurements/Treatment DEBBIE - Nurse 1 - General Ulcer Assessment Start: 01/13/24 11:06 Freq: Status: Active Protocol: ONDINA Activity Type Activity Date Activity User E-sign Co-sign Detail Recorded Client Recorded Date Recorded By Document 01/13/24 11:06 IA Desktop 01/13/24 11:18 IA 01/13/24 11:06 - Today's Visit Information Type of service Follow-up Visit (Physician/BUSINESS RELATIONSHIP MANAGER ) Arrival Mode Ambulatory, Walker Accompanied by self Patient Identification Verified (Name & Yes ) Safety Precautions Fall Prevention Vital Signs Temperature (97.8 F-99.1 F) 97.4 F L Temperature Source Temporal Pulse Rate (60-100) 68 Pulse Location Monitor Respiratory Rate (12-18) 18 Respiratory rate source Observation Oxygen Delivery Method Room Air Blood Pressure (90/60-120/80) 107/65 Blood Pressure Mean (mm Hg) 79 Source Monitor Position Sitting Blood Pressure Location Right Forearm History Since Last Visit- (Skip if this is Patient's initial visit) Has dressing in place as prescribed Yes Has compression in place as prescribed Yes Has offloadiing in place as prescribed N/A Experienced any changes in pain level or No management Left Footwear Regular Shoe Right Footwear Regular Shoe Pain Scale: 0-10 Numeric Is Patient Pain Free? Yes - Nurse 1 - General Ulcer Measurement Start: 01/13/24 11:06 Freq: Status: Active Protocol: Activity Type Activity Date Activity User E-sign Co-sign Detail Recorded Client Recorded Date Recorded By Document 01/13/24 11:06 IA Desktop 01/13/24 11:18 IA 01/13/24 11:06 Wound Center Nurse 1 #18 Left medial LE cluster -Current Size (cm) - Length 9 -Current Size (cm) - Width 21 -Current Size (cm) - Depth 0.1 -Total Square Cm 189 -Exudate Amt Large -Exudate Type Serous -Wound Margin Flat & Intact -Granulation Amt Large (67-100%) -Granulation Quality Pale,[place] -Slough/Fibrin Yes -Necrosis Amt Small (1-33%) -Necrotic Tissue Type Adherent Slough -Texture (Marie-wound Skin Appearance) Assessed -Moisture (Marie-wound Skin Appearance) Assessed -Color (Marie-wound Skin Appearance) Assessed -Temperature (Marie-wound Skin No Abnormality Appearance) (Pt Warm) -Tenderness on Palpation (Marie-wound No Skin Appearance) -Ulcer Cleansing Soap and Water -Anesthetic Used 4% Lidocaine Solution - Nurse 2 - General Ulcer CM Notes Start: 01/13/24 11:06 Freq: Status: Active Protocol: Activity Type Activity Date Activity User E-sign Co-sign Detail Recorded Client Recorded Date Recorded By Document 01/13/24 11:37 GM Desktop 01/13/24 11:50 GM Edit Result 01/13/24 11:37 GM (1) Desktop 01/13/24 11:50 GM (1) #18 Left medial LE cluster - Debridement, SubQ, ea addt'l 20sq cm => 8 or part thereof 01/13/24 11:37 Wound Center Nurse 2 -Time 11:38 -Correct Patient Yes -Correct Side, Site, Position Yes -Correct Procedure Yes -Procedure Performed Yes -Type of Procedure Debridement -Clinical Debridement Subcutaneous -Tissue Removed Subcutaneous -Post Debridement (cm) - Length 9.7 -Post Debridement (cm) - Width 18 -Post Debridement (cm) - Depth 0.1 -Total Square (Post) (cm) 174.6 -Area of Debridement (cm) - Length 9.7 -Area of Debridement (cm) - Width 18 -Total Square (Area) (cm) 174.6 -Tunneling No -Undermining/Tunneling No -Circular Undermining No -Wound/Ulcer Outcome Not Healed -Ulcer Cleansing Rinsed/ Irrigated with Saline -Foul Odor after Cleansing No -Bioengineered Tissue No -Bleeding Controlled with Pressure -Treatment Response Procedure Tolerated Well -Debridement - Subq, 1st 20sq cm Yes -Debridement, SubQ, ea addt'l 20sq cm 8 or part thereof Pain Scale: 0-10 Numeric Is Patient Pain Free? Yes WC - Nurse 3 - General Ulcer D/C NN Start: 01/13/24 11:06 Freq: Status: Active Protocol: Activity Type Activity Date Activity User E-sign Co-sign Detail Recorded Client Recorded Date Recorded By Document 01/13/24 11:51 IA Desktop 01/13/24 12:08 IA 01/13/24 11:51 Wound Care Center Nurse 3 #18 Left medial LE cluster -Ulcer Cleansing Rinsed/ Irrigated with Saline -Foul Odor after Cleansing No -Negative Pressure Wound Therapy N/A -Primary Dressing Applied Aquacel Extra -Primary Dressing Covered/Secured with Dry Gauze & Roll Gauze, Secured with Tape -Aquacel Extra 1 Right -Tubular Bandage Single Layer -Size of Tubigrip Used Size F -Size F ($) 1 -Other F HCS Left -Compression Wrap Marcio Wrap -Tubular Bandage Single Layer -Size of Tubigrip Used Size F -Size F ($) 1 -Other F HCS Pain Scale: 0-10 Numeric Is Patient Pain Free? Yes Assessment/Plan Assessment/Plan (1) Lymphedema: CODE(S): I89.0 - Lymphedema, not elsewhere classified (2) Hypertension: CODE(S): I10 - Essential (primary) hypertension QUALIFIERS: Hypertension type: primary hypertension Qualified Code(s): I10 - Essential (primary) hypertension (3) Hyperlipidemia: CODE(S): E78.5 - Hyperlipidemia, unspecified QUALIFIERS: Hyperlipidemia type: mixed hyperlipidemia Qualified Code(s): E78.2 - Mixed hyperlipidemia (4) History of DVT (deep vein thrombosis): CODE(S): Z86.718 - Personal history of other venous thrombosis and embolism (5) Venous insufficiency (chronic) (peripheral): CODE(S): I87.2 - Venous insufficiency (chronic) (peripheral) (6) Venous ulcer of left lower extremity with varicose veins: CODE(S): I83.029 - Varicose veins of left lower extremity with ulcer of unspecified site (7) Edema: CODE(S): R60.9 - Edema, unspecified QUALIFIERS: Edema type: unspecified Qualified Code(s): R60.9 - Edema, unspecified PLAN: Plan Evaluation and debridement of left medial LE ulcer performed today in clinic as annotated above. At home wound-care instructions: Will dress his ulcers with Fibracol every other day and Aquacel Extra on opposite days and cover with super absorber and gauze. If his ulcers are dry then would decrease frequency of changes to every other day. Continue compression with E tubigrips b/l. Due to the delayed progress in wound healing of his venous ulcers, we discussed applying for advanced wound healing product for healing his ulcer. Due to the size of his ulcer, Theraskin application approval is being requested from his insurance as it is medically necessary for salvaging his limb and healing his ulcer. He underwent 2 applications of Theraskin to this ulcer. Since application of Theraskin he has had much improvement in epitheliazation of his ulcer even though the overall size is not significantly changed there is progress. Off-loading: The patient was instructed to avoid pressure and friction on the affected areas. Reposition every 2 hours at minimum. Avoid prolonged standing and/or dangling of legs. When seated, feet should be elevated at chest level. Frequent ambulation is encouraged. Encouraged lymphedema pump use. Diet: Patient encouraged to increase protein intake while taking caution to avoid high carbohydrate and/or sugar intake. Labs/cultures/imaging: Wound culture showed 1+ Pseudomonas that is sensitive to Levofloxacin and completed treatment on 08/16/23. Follow-up: Return in 1 week for wound care follow up and have secondary dressing changed by home health Tuesday and Tuesday. Return sooner or report to the emergency room should symptoms worsen, or new symptoms arise. Note: [email or web address] speech recognition wax pattern repairer software was used to create portions of this document. Sound-alike and misspelled words, as well as other wax pattern repairer errors may be contained in the documentation.
[2024-01-20 09:53] VITALS: BP 106/54; PULSE 66; RESP 18; TEMP 35.5
--- NOTE | 2024-01-20 13:43 | PCM.WC.PN ---
History of Present Illness Date of Service: 01/20/24 Chief Complaint: venous ulcers of left lower extremity History of Wound: Mauricio is a 68 yo gentleman who is here today for evaluation of ulcers to to his bilateral lower legs. He has been treated multiple times in the past at the wound healing center for similar ulcers. The left LE ulcer started after he developed increased swelling and blisters of left leg in October and the right leg started sometime at the end of October. He was seen at PCP's office a culture was taken and it was resistant to several antibiotics. He was treated initially with Levaquin but had myalgias and then was treated with doxycycline which he finished 2 days ago. He denies improvement and is having swelling to his left calf and thigh. He has been having swelling to both lower extremities for many years and it has worsened over the last few months. He has not been compliant with compression. He has had increased pain especially in the left leg. He has clear yellow drainage and redness without odor or warmth. He is anti-coagulated on coumadin. He has been washing with Dial soap and witch ifrah. He had been using Collagen at times and using Calcium Alginate and covering with ABD pads during October. He was treated with 3M compression and Aquacel Ag. He was referred to the wound center for ongoing treatment. His ulcers have moderate to heavy drainage. He was recently hospitalized for cellulitis and edema for the last 10 days. He was in the hospital from 11/30/22 until 12/09/22 for treatment of cellulitis and edema. He underwent treatment with Vancomycin and IV lasix and compression. Discharged on 12/09/22. He returned to his assisted living apartment on Tuesday12/21/22. Objective Data Objective Data Vital Signs: Vital Signs Temp Pulse Resp BP O2 Del Method 96 F L 66 18 106/54 L Room Air 01/20/24 09:53 01/20/24 09:53 01/20/24 09:53 01/20/24 09:53 01/20/24 09:53 Oxygen Delivery Method Room Air Physical Exam Const alert, oriented x3 and no apparent distress General Appearance: cooperative and comfortable HEENT normocephalic and head/scalp atraumatic Lymph Lymphatic: lymphedema moderate Resp normal respiratory effort Effort and Inspection: able to speak in complete sentences Cardio regular rate and regular rhythm Extremity General Extremity: edema bilateral lower extremity Details: severe Skin Wounds: wounds noted Wound Narrative: as in clinical panel Psych mental status grossly normal, thought process normal, cooperative and affect normal Debridement Note Debridement Note Wound debrided: left medial LE ulcer Laterality: Left Type of Debridement: Excisional debridement Anesthesia Used: 4% Lidocaine Solution and Cetacaine Depth: Down to and including healthy tissue and in the subcutaneous layer Percentage of wound debrided: 100 Instrument Used: - (Misonix ultrasonic debridement) Tissue Removed: Yellow slough, devitalized tissue Severity: Fat Layer Exposed Amount of bleeding with debridement: Mild Bleeding Controlled with: Compression and gauze Patient tolerated procedure: Patient tolerated procedure well Post-Debridement Measurements and Additional Note: Post-Debridement Measurements/Treatment - Nurse 1 - General Ulcer Assessment Start: 01/13/24 11:06 Freq: Status: Active Protocol: ONDINA Activity Type Activity Date Activity User E-sign Co-sign Detail Recorded Client Recorded Date Recorded By Document 01/13/24 11:06 MT Desktop 01/13/24 11:18 MT Document 01/20/24 09:53 AK [employer] 01/20/24 09:55 MT 01/13/24 01/20/24 11:06 09:53 - Today's Visit Information Type of service Follow-up Visit Follow-up Visit (Physician/SED MIDDLE SCHOOL TEACHER (Physician/SED MIDDLE SCHOOL TEACHER ) ) Arrival Mode Ambulatory, Ambulatory, Walker Walker Accompanied by self self Patient Identification Verified (Name & Yes Yes ) Safety Precautions Fall Prevention Fall Prevention Vital Signs Temperature (97.8 F-99.1 F) 97.4 F L 96 F L Temperature Source Temporal Temporal Pulse Rate (60-100) 68 66 Pulse Location Monitor Monitor Respiratory Rate (12-18) 18 18 Respiratory rate source Observation Observation Oxygen Delivery Method Room Air Room Air Blood Pressure (90/60-120/80) 107/65 106/54 L Blood Pressure Mean (mm Hg) 79 71 Source Monitor Monitor Position Sitting Sitting Blood Pressure Location Right Forearm Right Arm History Since Last Visit- (Skip if this is Patient's initial visit) Has dressing in place as prescribed Yes Yes Has compression in place as prescribed Yes Yes Has offloadiing in place as prescribed N/A Experienced any changes in pain level or No management Left Footwear Regular Shoe Regular Shoe Right Footwear Regular Shoe Regular Shoe Pain Scale: 0-10 Numeric Is Patient Pain Free? Yes Yes - Nurse 1 - General Ulcer Measurement Start: 01/13/24 11:06 Freq: Status: Active Protocol: Activity Type Activity Date Activity User E-sign Co-sign Detail Recorded Client Recorded Date Recorded By Document 01/13/24 11:06 MT Desktop 01/13/24 11:18 MT Document 01/20/24 09:53 AK Desktop 01/20/24 09:55 AK 01/13/24 01/20/24 11:06 09:53 Wound Center Nurse 1 #18 Left medial LE cluster -Current Size (cm) - Length 9 9 -Current Size (cm) - Width 21 16.5 -Current Size (cm) - Depth 0.1 0.1 -Total Square Cm 189 148.5 -Exudate Amt Large Medium -Exudate Type Serous Sanguineous -Wound Margin Flat & Intact Flat & Intact -Granulation Amt Large (67-100%) Large (67-100%) -Granulation Quality Pale,[place] Pale,[place] -Slough/Fibrin Yes -Necrosis Amt Small (1-33%) Small (1-33%) -Necrotic Tissue Type Adherent Slough -Texture (Marie-wound Skin Appearance) Assessed Assessed, Localized Edema -Moisture (Marie-wound Skin Appearance) Assessed Assessed -Color (Marie-wound Skin Appearance) Assessed Assessed, Erythema, Hemosiderin Staining -Temperature (Marie-wound Skin No Abnormality No Abnormality Appearance) (Pt Warm) (Pt Warm) -Tenderness on Palpation (Marie-wound No No Skin Appearance) -Ulcer Cleansing Soap and Water Rinsed/ Irrigated with Saline -Foul Odor after Cleansing No -Anesthetic Used 4% Lidocaine Solution Left Calf (cm) 43.5 Left Ankle (cm) 29 WC - Nurse 2 - General Ulcer CM Notes Start: 01/13/24 11:06 Freq: Status: Active Protocol: Activity Type Activity Date Activity User E-sign Co-sign Detail Recorded Client Recorded Date Recorded By Document 01/13/24 11:37 GM Desktop 01/13/24 11:50 GM Edit Result 01/13/24 11:37 GM (1) Desktop 01/13/24 11:50 GM Document 01/20/24 10:19 GM Desktop 01/20/24 10:30 GM (1) #18 Left medial LE cluster - Debridement, SubQ, ea addt'l 20sq cm => 8 or part thereof 01/13/24 01/20/24 11:37 10:19 Wound Center Nurse 2 #18 Left medial LE cluster -Time 11:38 10:20 -Correct Patient Yes Yes -Correct Side, Site, Position Yes Yes -Correct Procedure Yes Yes -Procedure Performed Yes Yes -Type of Procedure Debridement Debridement -Clinical Debridement Subcutaneous Subcutaneous -Tissue Removed Subcutaneous Subcutaneous -Post Debridement (cm) - Length 9.7 9.1 -Post Debridement (cm) - Width 18 18.5 -Post Debridement (cm) - Depth 0.1 0.1 -Total Square (Post) (cm) 174.6 168.35 -Area of Debridement (cm) - Length 9.7 9.1 -Area of Debridement (cm) - Width 18 18.5 -Total Square (Area) (cm) 174.6 168.35 -Tunneling No No -Undermining/Tunneling No No -Circular Undermining No No -Wound/Ulcer Outcome Not Healed Not Healed -Ulcer Cleansing Rinsed/ Rinsed/ Irrigated with Irrigated with Saline Saline -Foul Odor after Cleansing No No -Bioengineered Tissue No -Bleeding Controlled with Pressure Pressure -Treatment Response Procedure Procedure Tolerated Well Tolerated Well -Debridement - Subq, 1st 20sq cm Yes Yes -Debridement, SubQ, ea addt'l 20sq cm 8 8 or part thereof Pain Scale: 0-10 Numeric Is Patient Pain Free? Yes Yes - Nurse 3 - General Ulcer D/C NN Start: 01/13/24 11:06 Freq: Status: Active Protocol: Activity Type Activity Date Activity User E-sign Co-sign Detail Recorded Client Recorded Date Recorded By Document 01/13/24 11:51 AK Desktop 01/13/24 12:08 MT Document 01/20/24 10:55 RB Desktop 01/20/24 10:57 RB 01/13/24 01/20/24 11:51 10:55 Wound Care Center Nurse 3 #18 Left medial LE cluster -Ulcer Cleansing Rinsed/ Rinsed/ Irrigated with Irrigated with Saline Saline -Foul Odor after Cleansing No -Negative Pressure Wound Therapy N/A -Primary Dressing Applied Aquacel Extra Aquacel Extra -Other Dressing super absorber -Primary Dressing Covered/Secured with Dry Gauze & Dry Gauze & Roll Gauze, Roll Gauze, Secured with Secured with Tape Tape -Aquacel Extra 1 2 Right -Tubular Bandage Single Layer Single Layer -Size of Tubigrip Used Size F Size F -Size F ($) 1 1 -Other F HCS Left -Compression Wrap Marcio Wrap -Tubular Bandage Single Layer Single Layer -Size of Tubigrip Used Size F Size F -Size F ($) 1 1 -Other F HCS Pain Scale: 0-10 Numeric Is Patient Pain Free? Yes Yes WC - Visit Discharge Discharge Condition Stable Ambulatory Status Ambulatory, Walker Transportation Private Auto Medication Reconcilliation completed & No provided to patient/care provider Clinical Summary of Care Provided Yes Assessment/Plan Assessment/Plan (1) Lymphedema: CODE(S): I89.0 - Lymphedema, not elsewhere classified (2) Hypertension: CODE(S): I10 - Essential (primary) hypertension QUALIFIERS: Hypertension type: primary hypertension Qualified Code(s): I10 - Essential (primary) hypertension (3) Hyperlipidemia: CODE(S): E78.5 - Hyperlipidemia, unspecified QUALIFIERS: Hyperlipidemia type: mixed hyperlipidemia Qualified Code(s): E78.2 - Mixed hyperlipidemia (4) History of DVT (deep vein thrombosis): CODE(S): Z86.718 - Personal history of other venous thrombosis and embolism (5) Venous insufficiency (chronic) (peripheral): CODE(S): I87.2 - Venous insufficiency (chronic) (peripheral) (6) Venous ulcer of left lower extremity with varicose veins: CODE(S): I83.029 - Varicose veins of left lower extremity with ulcer of unspecified site (7) Edema: CODE(S): R60.9 - Edema, unspecified QUALIFIERS: Edema type: unspecified Qualified Code(s): R60.9 - Edema, unspecified PLAN: Plan Evaluation and debridement of left medial LE ulcer performed today in clinic as annotated above. At home wound-care instructions: Will dress his ulcers with Fibracol daily and cover with super absorber and gauze. If his ulcers are dry then would decrease frequency of changes to every other day. Continue compression with E tubigrips b/l. Due to the delayed progress in wound healing of his venous ulcers, we discussed applying for advanced wound healing product for healing his ulcer. Due to the size of his ulcer, Theraskin application approval is being requested from his insurance as it is medically necessary for salvaging his limb and healing his ulcer. He underwent 2 applications of Theraskin to this ulcer. Since application of Theraskin he has had much improvement in epitheliazation of his ulcer even though the overall size is not significantly changed there is progress. Off-loading: The patient was instructed to avoid pressure and friction on the affected areas. Reposition every 2 hours at minimum. Avoid prolonged standing and/or dangling of legs. When seated, feet should be elevated at chest level. Frequent ambulation is encouraged. Encouraged lymphedema pump use. Diet: Patient encouraged to increase protein intake while taking caution to avoid high carbohydrate and/or sugar intake. Labs/cultures/imaging: Wound culture showed 1+ Pseudomonas that is sensitive to Levofloxacin and completed treatment on 08/16/23. Follow-up: Return in 1 week for wound care follow up and have secondary dressing changed by home health Tuesday and Tuesday. Return sooner or report to the emergency room should symptoms worsen, or new symptoms arise. Note: [employer] speech recognition metal furniture repairer software was used to create portions of this document. Sound-alike and misspelled words, as well as other metal furniture repairer errors may be contained in the documentation.
[2024-01-27 09:50] VITALS: BP 121/76; PULSE 57; RESP 18; TEMP 36.6
--- NOTE | 2024-01-27 10:44 | PN.PCM_ITS ---
History of Present Illness Date of Service: 01/27/24 Chief Complaint: venous ulcers of left lower extremity History of Wound: Mauricio is a 68 yo gentleman who is here today for evaluation of ulcers to to his bilateral lower legs. He has been treated multiple times in the past at the wound healing center for similar ulcers. The left LE ulcer started after he developed increased swelling and blisters of left leg in October and the right leg started sometime at the end of October. He was seen at PCP's office a culture was taken and it was resistant to several antibiotics. He was treated initially with Levaquin but had myalgias and then was treated with doxycycline which he finished 2 days ago. He denies improvement and is having swelling to his left calf and thigh. He has been having swelling to both lower extremities for many years and it has worsened over the last few months. He has not been compliant with compression. He has had increased pain especially in the left leg. He has clear yellow drainage and redness without odor or warmth. He is anti- coagulated on coumadin. He has been washing with Dial soap and witch ifrah. He had been using Collagen at times and using Calcium Alginate and covering with ABD pads during October. He was treated with 3M compression and Aquacel Ag. He was referred to the wound center for ongoing treatment. His ulcers have moderate to heavy drainage. He was recently hospitalized for cellulitis and edema for the last 10 days. He was in the hospital from 11/30/22 until 12/09/22 for treatment of cellulitis and edema. He underwent treatment with Vancomycin and IV lasix and compression. Discharged on 12/09/22. He returned to his assisted living apartment on Tuesday12/21/22. Subjective Subjective Mauricio is a 68-year-old male with longstanding history of chronic venous ulceration to the left lower extremity. He has been using Fibracol and tolerating it ok. There has been improvement in his ulcer overall. He reports significantly decreased drainage. He continues to use super absorber for heavy drainage. He does note that the ulcer is dry. He tried ABD and it was oversaturated and size F Tubigrips for compression. 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 He continues to use his lymphedema pumps but continues to have pain with use of these pumps. Objective Data Objective Data Vital Signs: Vital Signs Temp Pulse Resp BP O2 Del Method 98 F 57 L 18 121/76 H Room Air 01/27/24 09:50 01/27/24 09:50 01/27/24 09:50 01/27/24 09:50 01/27/24 09:50 Oxygen Delivery Method Room Air Physical Exam Const alert, oriented x3 and no apparent distress General Appearance: cooperative and comfortable HEENT normocephalic and head/scalp atraumatic Lymph Lymphatic: lymphedema moderate Resp normal respiratory effort Effort and Inspection: able to speak in complete sentences Cardio regular rate and regular rhythm Extremity General Extremity: edema bilateral lower extremity Details: severe Skin Wounds: wounds noted Wound Narrative: as in clinical panel Psych mental status grossly normal, thought process normal, cooperative and affect normal Debridement Note Debridement Note Wound debrided: left medial LE ulcer Laterality: Left Type of Debridement: Excisional debridement Anesthesia Used: 4% Lidocaine Solution and Cetacaine Depth: Down to and including healthy tissue and in the subcutaneous layer Percentage of wound debrided: 100 Instrument Used: - (Misonix ultrasonic debridement) Tissue Removed: Yellow slough, devitalized tissue Severity: Fat Layer Exposed Amount of bleeding with debridement: Mild Bleeding Controlled with: Compression and gauze Patient tolerated procedure: Patient tolerated procedure well Post-Debridement Measurements and Additional Note: Post-Debridement Measurements/Treatment - Nurse 1 - General Ulcer Assessment Start: 01/13/24 11:06 Freq: Status: Active Protocol: ONDINA Activity Type Activity Date Activity User E-sign Co-sign Detail Recorded Client Recorded Date Recorded By Document 01/13/24 11:06 [employer] Desktop 01/13/24 11:18 MT Document 01/20/24 09:53 RI [employer] 01/20/24 09:55 RI Document 01/27/24 09:50 MT Desktop 01/27/24 09:54 MT 01/13/24 01/20/24 01/27/24 11:06 09:53 09:50 - Today's Visit Information Type of service Follow-up Visit Follow-up Visit Follow-up Visit (Physician/SPRING ASSEMBLER (Physician/SPRING ASSEMBLER (Physician/SPRING ASSEMBLER ) ) ) Arrival Mode Ambulatory, Ambulatory, Ambulatory, Walker Walker Walker Accompanied by self self self Patient Identification Verified (Name & Yes Yes Yes ) Safety Precautions Fall Prevention Fall Prevention Fall Prevention Vital Signs Temperature (97.8 F-99.1 F) 97.4 F L 96 F L 98 F Temperature Source Temporal Temporal Temporal Pulse Rate (60-100) 68 66 57 L Pulse Location Monitor Monitor Monitor Respiratory Rate (12-18) 18 18 18 Respiratory rate source Observation Observation Observation Oxygen Delivery Method Room Air Room Air Room Air Blood Pressure (90/60-120/80) 107/65 106/54 L 121/76 H Blood Pressure Mean (mm Hg) 79 71 91 Source Monitor Monitor Monitor Position Sitting Sitting Sitting Blood Pressure Location Right Forearm Right Arm Right Arm History Since Last Visit- (Skip if this is Patient's initial visit) Has dressing in place as prescribed Yes Yes Yes Has compression in place as prescribed Yes Yes Yes Has offloadiing in place as prescribed N/A Experienced any changes in pain level or No No management Left Footwear Regular Shoe Regular Shoe Regular Shoe Right Footwear Regular Shoe Regular Shoe Regular Shoe Pain Scale: 0-10 Numeric Is Patient Pain Free? Yes Yes Yes WC - Nurse 1 - General Ulcer Measurement Start: 01/13/24 11:06 Freq: Status: Active Protocol: Activity Type Activity Date Activity User E-sign Co-sign Detail Recorded Client Recorded Date Recorded By Document 01/13/24 11:06 [employer] Desktop 01/13/24 11:18 MT Document 01/20/24 09:53 [employer] Desktop 01/20/24 09:55 MT Document 01/27/24 09:50 MT Desktop 01/27/24 09:54 MT 01/13/24 01/20/24 01/27/24 11:06 09:53 09:50 Wound Center Nurse 1 #18 Left medial LE cluster -Current Size (cm) - Length 9 9 9.8 -Current Size (cm) - Width 21 16.5 15.5 -Current Size (cm) - Depth 0.1 0.1 0.2 -Total Square Cm 189 148.5 151.90 -Photo Taken No -Undermining/Tunneling No -Circular Undermining No -Exudate Amt Large Medium Medium -Exudate Type Serous Sanguineous Serosanguineous -Wound Margin Flat & Intact Flat & Intact Thickened & Rolled Under -Granulation Amt Large (67-100%) Large (67-100%) Large (67-100%) -Granulation Quality Pale,[place] Pale,[place] Pale,[place] -Slough/Fibrin Yes -Necrosis Amt Small (1-33%) Small (1-33%) Medium (34-66%) -Necrotic Tissue Type Adherent Slough Adherent Slough -Texture (Marie-wound Skin Appearance) Assessed Assessed, Assessed Localized Edema -Moisture (Marie-wound Skin Appearance) Assessed Assessed Assessed -Color (Marie-wound Skin Appearance) Assessed Assessed, Assessed Erythema, Hemosiderin Staining -Temperature (Marie-wound Skin No Abnormality No Abnormality No Abnormality Appearance) (Pt Warm) (Pt Warm) (Pt Warm) -Tenderness on Palpation (Marie-wound No No No Skin Appearance) -Ulcer Cleansing Soap and Water Rinsed/ Soap and Water Irrigated with Saline -Foul Odor after Cleansing No No -Anesthetic Used 4% Lidocaine 4% Lidocaine Solution Solution Left Calf (cm) 43.5 43.5 Left Ankle (cm) 29 30.5 WC - Nurse 2 - General Ulcer CM Notes Start: 01/13/24 11:06 Freq: Status: Active Protocol: Activity Type Activity Date Activity User E-sign Co-sign Detail Recorded Client Recorded Date Recorded By Document 01/13/24 11:37 GM Desktop 01/13/24 11:50 GM Edit Result 01/13/24 11:37 GM (1) Desktop 01/13/24 11:50 GM Document 01/20/24 10:19 GM Desktop 01/20/24 10:30 GM Document 01/27/24 10:03 GM Desktop 01/27/24 10:20 GM Edit Result 01/27/24 10:03 GM (2) Desktop 01/27/24 10:20 GM (1) #18 Left medial LE cluster - Debridement, SubQ, ea addt'l 20sq cm => 8 or part thereof (2) #18 Left medial LE cluster - Debridement, SubQ, ea addt'l 20sq cm => 7 or part thereof 01/13/24 01/20/24 01/27/24 11:37 10:19 10:03 Wound Center Nurse 2 #18 Left medial LE cluster -Time 11:38 10:20 10:03 -Correct Patient Yes Yes Yes -Correct Side, Site, Position Yes Yes Yes -Correct Procedure Yes Yes Yes -Procedure Performed Yes Yes Yes -Type of Procedure Debridement Debridement Debridement -Clinical Debridement Subcutaneous Subcutaneous Subcutaneous -Tissue Removed Subcutaneous Subcutaneous Subcutaneous -Post Debridement (cm) - Length 9.7 9.1 9.0 -Post Debridement (cm) - Width 18 18.5 16.5 -Post Debridement (cm) - Depth 0.1 0.1 0.1 -Total Square (Post) (cm) 174.6 168.35 148.50 -Area of Debridement (cm) - Length 9.7 9.1 9.0 -Area of Debridement (cm) - Width 18 18.5 16.5 -Total Square (Area) (cm) 174.6 168.35 148.50 -Tunneling No No No -Undermining/Tunneling No No No -Circular Undermining No No No -Wound/Ulcer Outcome Not Healed Not Healed Not Healed -Ulcer Cleansing Rinsed/ Rinsed/ Rinsed/ Irrigated with Irrigated with Irrigated with Saline Saline Saline -Foul Odor after Cleansing No No No -Bioengineered Tissue No No -Bleeding Controlled with Pressure Pressure Pressure -Treatment Response Procedure Procedure Procedure Tolerated Well Tolerated Well Tolerated Well -Debridement - Subq, 1st 20sq cm Yes Yes Yes -Debridement, SubQ, ea addt'l 20sq cm 8 8 7 or part thereof Pain Scale: 0-10 Numeric Is Patient Pain Free? Yes Yes Yes WC - Nurse 3 - General Ulcer D/C NN Start: 01/13/24 11:06 Freq: Status: Active Protocol: Activity Type Activity Date Activity User E-sign Co-sign Detail Recorded Client Recorded Date Recorded By Document 01/13/24 11:51 RI Desktop 01/13/24 12:08 RI Document 01/20/24 10:55 Desktop 01/20/24 10:57 RB 01/13/24 01/20/24 11:51 10:55 Wound Care Center Nurse 3 #18 Left medial LE cluster -Ulcer Cleansing Rinsed/ Rinsed/ Irrigated with Irrigated with Saline Saline -Foul Odor after Cleansing No -Negative Pressure Wound Therapy N/A -Primary Dressing Applied Aquacel Extra Aquacel Extra -Other Dressing super absorber -Primary Dressing Covered/Secured with Dry Gauze & Dry Gauze & Roll Gauze, Roll Gauze, Secured with Secured with Tape Tape -Aquacel Extra 1 2 Right -Tubular Bandage Single Layer Single Layer -Size of Tubigrip Used Size F Size F -Size F ($) 1 1 -Other F HCS Left -Compression Wrap Marcio Wrap -Tubular Bandage Single Layer Single Layer -Size of Tubigrip Used Size F Size F -Size F ($) 1 1 -Other F HCS Pain Scale: 0-10 Numeric Is Patient Pain Free? Yes Yes WC - Visit Discharge Discharge Condition Stable Ambulatory Status Ambulatory, Walker Transportation Private Auto Medication Reconcilliation completed & No provided to patient/care provider Clinical Summary of Care Provided Yes Assessment/Plan Assessment/Plan (1) Lymphedema: CODE(S): I89.0 - Lymphedema, not elsewhere classified (2) Hypertension: CODE(S): I10 - Essential (primary) hypertension QUALIFIERS: Hypertension type: primary hypertension Qualified Code(s): I10 - Essential (primary) hypertension (3) Hyperlipidemia: CODE(S): E78.5 - Hyperlipidemia, unspecified QUALIFIERS: Hyperlipidemia type: mixed hyperlipidemia Qualified Code(s): E78.2 - Mixed hyperlipidemia (4) History of DVT (deep vein thrombosis): CODE(S): Z86.718 - Personal history of other venous thrombosis and embolism (5) Venous insufficiency (chronic) (peripheral): CODE(S): I87.2 - Venous insufficiency (chronic) (peripheral) (6) Venous ulcer of left lower extremity with varicose veins: CODE(S): I83.029 - Varicose veins of left lower extremity with ulcer of unspecified site (7) Edema: CODE(S): R60.9 - Edema, unspecified QUALIFIERS: Edema type: unspecified Qualified Code(s): R60.9 - Edema, unspecified PLAN: Plan Evaluation and debridement of left medial LE ulcer performed today in clinic as annotated above. At home wound-care instructions: Will continue to dress his ulcers with Fibracol daily and cover with Aquacel Extra and ABD and gauze. If his ulcers are dry then would decrease frequency of changes to every other day. Continue compression with F tubigrips b/l. Due to the delayed progress in wound healing of his venous ulcers, we discussed applying for advanced wound healing product for healing his ulcer. Due to the size of his ulcer, Theraskin application approval is being requested from his insurance as it is medically necessary for salvaging his limb and healing his ulcer. He underwent 2 applications of Theraskin to this ulcer. Since application of Theraskin he has had much improvement in epitheliazation of his ulcer even though the overall size is not significantly changed there is progress. Off-loading: The patient was instructed to avoid pressure and friction on the affected areas. Reposition every 2 hours at minimum. Avoid prolonged standing and/or dangling of legs. When seated, feet should be elevated at chest level. Frequent ambulation is encouraged. Encouraged lymphedema pump use. Diet: Patient encouraged to increase protein intake while taking caution to avoid high carbohydrate and/or sugar intake. Labs/cultures/imaging: Wound culture showed 1+ Pseudomonas that is sensitive to Levofloxacin and completed treatment on 08/16/23. Follow-up: Return in 1 week for wound care follow up and have secondary dressing changed by home health Tuesday and Tuesday. Return sooner or report to the emergency room should symptoms worsen, or new symptoms arise. Note: [employer] speech recognition rotary drill rig operator software was used to create portions of this document. Sound-alike and misspelled words, as well as other rotary drill rig operator errors may be contained in the documentation.
[2024-02-03 09:50] VITALS: BP 114/57; PULSE 73; RESP 18; TEMP 36.4
--- NOTE | 2024-02-03 14:16 | PN.PCM_ITS ---
History of Present Illness Date of Service: 02/03/24 Chief Complaint: venous ulcers of left lower extremity History of Wound: Mauricio is a 68 yo gentleman who is here today for evaluation of ulcers to to his bilateral lower legs. He has been treated multiple times in the past at the wound healing center for similar ulcers. The left LE ulcer started after he developed increased swelling and blisters of left leg in October and the right leg started sometime at the end of October. He was seen at PCP's office a culture was taken and it was resistant to several antibiotics. He was treated initially with Levaquin but had myalgias and then was treated with doxycycline which he finished 2 days ago. He denies improvement and is having swelling to his left calf and thigh. He has been having swelling to both lower extremities for many years and it has worsened over the last few months. He has not been compliant with compression. He has had increased pain especially in the left leg. He has clear yellow drainage and redness without odor or warmth. He is anti- coagulated on coumadin. He has been washing with Dial soap and witch ifrah. He had been using Collagen at times and using Calcium Alginate and covering with ABD pads during October. He was treated with 3M compression and Aquacel Ag. He was referred to the wound center for ongoing treatment. His ulcers have moderate to heavy drainage. He was recently hospitalized for cellulitis and edema for the last 10 days. He was in the hospital from 11/30/22 until 12/09/22 for treatment of cellulitis and edema. He underwent treatment with Vancomycin and IV lasix and compression. Discharged on 12/09/22. He returned to his assisted living apartment on Tuesday12/21/22. Subjective Subjective Mauricio is a 68-year-old male with longstanding history of chronic venous ulceration to the left lower extremity. He has been using Fibracol and tolerating it ok. There has been improvement in his ulcer overall. He reports significantly decreased drainage. He continues to use super absorber for heavy drainage. He does note that the ulcer is dry. He tried ABD and it was oversaturated and size F Tubigrips for compression. 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 He continues to use his lymphedema pumps but continues to have pain with use of these pumps. Objective Data Objective Data Vital Signs: Vital Signs Temp Pulse Resp BP O2 Del Method 97.5 F L 73 18 114/57 L Room Air 02/03/24 09:50 02/03/24 09:50 02/03/24 09:50 02/03/24 09:50 02/03/24 09:50 Oxygen Delivery Method Room Air Physical Exam Const alert, oriented x3 and no apparent distress General Appearance: cooperative and comfortable HEENT normocephalic and head/scalp atraumatic Lymph Lymphatic: lymphedema moderate Resp normal respiratory effort Effort and Inspection: able to speak in complete sentences Cardio regular rate and regular rhythm Extremity General Extremity: edema bilateral lower extremity Details: severe Skin Wounds: wounds noted Wound Narrative: as in clinical panel Psych mental status grossly normal, thought process normal, cooperative and affect normal Debridement Note Debridement Note Wound debrided: left medial LE ulcer Laterality: Left Type of Debridement: Excisional debridement Anesthesia Used: 4% Lidocaine Solution and Cetacaine Depth: Down to and including healthy tissue and in the subcutaneous layer Percentage of wound debrided: 100 Instrument Used: - (Misonix ultrasonic debridement) Tissue Removed: Yellow slough, devitalized tissue Severity: Fat Layer Exposed Amount of bleeding with debridement: Mild Bleeding Controlled with: Compression and gauze Patient tolerated procedure: Patient tolerated procedure well Post-Debridement Measurements and Additional Note: Post-Debridement Measurements/Treatment - Nurse 1 - General Ulcer Assessment Start: 01/13/24 11:06 Freq: Status: Active Protocol: ONDINA Activity Type Activity Date Activity User E-sign Co-sign Detail Recorded Client Recorded Date Recorded By Document 01/13/24 11:06 MT Desktop 01/13/24 11:18 MT Document 01/20/24 09:53 MT Desktop 01/20/24 09:55 MT Document 01/27/24 09:50 MT Desktop 01/27/24 09:54 MT Document 02/03/24 09:50 KW Desktop 02/03/24 09:57 KW 01/13/24 01/20/24 01/27/24 11:06 09:53 09:50 - Today's Visit Information Type of service Follow-up Visit Follow-up Visit Follow-up Visit (Physician/FINISHED STOCK INSPECTOR (Physician/FINISHED STOCK INSPECTOR (Physician/FINISHED STOCK INSPECTOR ) ) ) Arrival Mode Ambulatory, Ambulatory, Ambulatory, Walker Walker Walker Accompanied by self self self Patient Identification Verified (Name & Yes Yes Yes ) Safety Precautions Fall Prevention Fall Prevention Fall Prevention Vital Signs Temperature (97.8 F-99.1 F) 97.4 F L 96 F L 98 F Temperature Source Temporal Temporal Temporal Pulse Rate (60-100) 68 66 57 L Pulse Location Monitor Monitor Monitor Respiratory Rate (12-18) 18 18 18 Respiratory rate source Observation Observation Observation Oxygen Delivery Method Room Air Room Air Room Air Blood Pressure (90/60-120/80) 107/65 106/54 L 121/76 H Blood Pressure Mean (mm Hg) 79 71 91 Source Monitor Monitor Monitor Position Sitting Sitting Sitting Blood Pressure Location Right Forearm Right Arm Right Arm History Since Last Visit- (Skip if this is Patient's initial visit) Have you changed medications since your last visit? Any new allergies or adverse reactions Had a fall/change in ADL's that may increase risk of falls Signs or symptoms of abuse and/or neglect since last visit Have you been in the hospital since your last visit? Has dressing in place as prescribed Yes Yes Yes Has compression in place as prescribed Yes Yes Yes Has offloadiing in place as prescribed N/A Experienced any changes in pain level or No No management Left Footwear Regular Shoe Regular Shoe Regular Shoe Right Footwear Regular Shoe Regular Shoe Regular Shoe Pain Scale: 0-10 Numeric Is Patient Pain Free? Yes Yes Yes 02/03/24 09:50 WC - Today's Visit Information Type of service Follow-up Visit (Physician/FINISHED STOCK INSPECTOR ) Arrival Mode Ambulatory Accompanied by Patient Identification Verified (Name & Yes ) Safety Precautions Vital Signs Temperature (97.8 F-99.1 F) 97.5 F L Temperature Source Temporal Pulse Rate (60-100) 73 Pulse Location Monitor Respiratory Rate (12-18) 18 Respiratory rate source Observation Oxygen Delivery Method Room Air Blood Pressure (90/60-120/80) 114/57 L Blood Pressure Mean (mm Hg) 76 Source Monitor Position Semi-Fowlers Blood Pressure Location Right Forearm History Since Last Visit- (Skip if this is Patient's initial visit) Have you changed medications since your No last visit? Any new allergies or adverse reactions No Had a fall/change in ADL's that may No increase risk of falls Signs or symptoms of abuse and/or No neglect since last visit Have you been in the hospital since your No last visit? Has dressing in place as prescribed Yes Has compression in place as prescribed Yes Has offloadiing in place as prescribed N/A Experienced any changes in pain level or No management Left Footwear Regular Shoe Right Footwear Regular Shoe Pain Scale: 0-10 Numeric Is Patient Pain Free? Yes WC - Nurse 1 - General Ulcer Measurement Start: 01/13/24 11:06 Freq: Status: Active Protocol: Activity Type Activity Date Activity User E-sign Co-sign Detail Recorded Client Recorded Date Recorded By Document 01/13/24 11:06 MT Desktop 01/13/24 11:18 MT Document 01/20/24 09:53 MT Desktop 01/20/24 09:55 MT Document 01/27/24 09:50 MT Desktop 01/27/24 09:54 MT Document 02/03/24 09:50 KW Desktop 02/03/24 09:57 KW 01/13/24 01/20/24 01/27/24 11:06 09:53 09:50 Wound Center Nurse 1 #18 Left medial LE cluster -Current Size (cm) - Length 9 9 9.8 -Current Size (cm) - Width 21 16.5 15.5 -Current Size (cm) - Depth 0.1 0.1 0.2 -Total Square Cm 189 148.5 151.90 -Photo Taken No -Epithelialization -Undermining/Tunneling No -Circular Undermining No -Exudate Amt Large Medium Medium -Exudate Type Serous Sanguineous Serosanguineous -Wound Margin Flat & Intact Flat & Intact Thickened & Rolled Under -Granulation Amt Large (67-100%) Large (67-100%) Large (67-100%) -Granulation Quality Pale,[place] Pale,[place] Pale,[place] -Slough/Fibrin Yes -Necrosis Amt Small (1-33%) Small (1-33%) Medium (34-66%) -Necrotic Tissue Type Adherent Slough Adherent Slough -Texture (Marie-wound Skin Appearance) Assessed Assessed, Assessed Localized Edema -Moisture (Marie-wound Skin Appearance) Assessed Assessed Assessed -Color (Marie-wound Skin Appearance) Assessed Assessed, Assessed Erythema, Hemosiderin Staining -Temperature (Marie-wound Skin No Abnormality No Abnormality No Abnormality Appearance) (Pt Warm) (Pt Warm) (Pt Warm) -Tenderness on Palpation (Marie-wound No No No Skin Appearance) -Ulcer Cleansing Soap and Water Rinsed/ Soap and Water Irrigated with Saline -Foul Odor after Cleansing No No -Anesthetic Used 4% Lidocaine 4% Lidocaine Solution Solution Left Calf (cm) 43.5 43.5 Left Ankle (cm) 29 30.5 02/03/24 09:50 Wound Center Nurse 1 #18 Left medial LE cluster -Current Size (cm) - Length 23 -Current Size (cm) - Width 7.5 -Current Size (cm) - Depth 0.1 -Total Square Cm 172.5 -Photo Taken -Epithelialization Medium 34-66% -Undermining/Tunneling -Circular Undermining -Exudate Amt Medium -Exudate Type Serosanguineous -Wound Margin Distinct, Outline Attached -Granulation Amt Large (67-100%) -Granulation Quality Red -Slough/Fibrin -Necrosis Amt Small (1-33%) -Necrotic Tissue Type Adherent Slough -Texture (Marie-wound Skin Appearance) Assessed, Localized Edema -Moisture (Marie-wound Skin Appearance) Assessed -Color (Marie-wound Skin Appearance) Assessed -Temperature (Marie-wound Skin No Abnormality Appearance) (Pt Warm) -Tenderness on Palpation (Marie-wound Skin Appearance) -Ulcer Cleansing Soap and Water -Foul Odor after Cleansing No -Anesthetic Used 4% Lidocaine Solution Left Calf (cm) Left Ankle (cm) WC - Nurse 2 - General Ulcer CM Notes Start: 01/13/24 11:06 Freq: Status: Active Protocol: Activity Type Activity Date Activity User E-sign Co-sign Detail Recorded Client Recorded Date Recorded By Document 01/13/24 11:37 GM Desktop 01/13/24 11:50 GM Edit Result 01/13/24 11:37 GM (1) Desktop 01/13/24 11:50 GM Document 01/20/24 10:19 GM Desktop 01/20/24 10:30 GM Document 01/27/24 10:03 GM Desktop 01/27/24 10:20 GM Edit Result 01/27/24 10:03 GM (2) Desktop 01/27/24 10:20 GM Document 02/03/24 10:11 GM Desktop 02/03/24 10:22 GM (1) #18 Left medial LE cluster - Debridement, SubQ, ea addt'l 20sq cm => 8 or part thereof (2) #18 Left medial LE cluster - Debridement, SubQ, ea addt'l 20sq cm => 7 or part thereof 01/13/24 01/20/24 01/27/24 11:37 10:19 10:03 Wound Center Nurse 2 #18 Left medial LE cluster -Time 11:38 10:20 10:03 -Correct Patient Yes Yes Yes -Correct Side, Site, Position Yes Yes Yes -Correct Procedure Yes Yes Yes -Procedure Performed Yes Yes Yes -Type of Procedure Debridement Debridement Debridement -Clinical Debridement Subcutaneous Subcutaneous Subcutaneous -Tissue Removed Subcutaneous Subcutaneous Subcutaneous -Post Debridement (cm) - Length 9.7 9.1 9.0 -Post Debridement (cm) - Width 18 18.5 16.5 -Post Debridement (cm) - Depth 0.1 0.1 0.1 -Total Square (Post) (cm) 174.6 168.35 148.50 -Area of Debridement (cm) - Length 9.7 9.1 9.0 -Area of Debridement (cm) - Width 18 18.5 16.5 -Total Square (Area) (cm) 174.6 168.35 148.50 -Tunneling No No No -Undermining/Tunneling No No No -Circular Undermining No No No -Wound/Ulcer Outcome Not Healed Not Healed Not Healed -Ulcer Cleansing Rinsed/ Rinsed/ Rinsed/ Irrigated with Irrigated with Irrigated with Saline Saline Saline -Foul Odor after Cleansing No No No -Bioengineered Tissue No No -Bleeding Controlled with Pressure Pressure Pressure -Treatment Response Procedure Procedure Procedure Tolerated Well Tolerated Well Tolerated Well -Debridement - Subq, 1st 20sq cm Yes Yes Yes -Debridement, SubQ, ea addt'l 20sq cm 8 8 7 or part thereof Pain Scale: 0-10 Numeric Is Patient Pain Free? Yes Yes Yes 02/03/24 10:11 Wound Center Nurse 2 #18 Left medial LE cluster -Time 10:11 -Correct Patient Yes -Correct Side, Site, Position Yes -Correct Procedure Yes -Procedure Performed Yes -Type of Procedure Debridement -Clinical Debridement Subcutaneous -Tissue Removed Subcutaneous -Post Debridement (cm) - Length 9.0 -Post Debridement (cm) - Width 17.0 -Post Debridement (cm) - Depth 0.1 -Total Square (Post) (cm) 153.00 -Area of Debridement (cm) - Length 9.0 -Area of Debridement (cm) - Width 17.0 -Total Square (Area) (cm) 153.00 -Tunneling No -Undermining/Tunneling No -Circular Undermining No -Wound/Ulcer Outcome Not Healed -Ulcer Cleansing Rinsed/ Irrigated with Saline -Foul Odor after Cleansing No -Bioengineered Tissue -Bleeding Controlled with Pressure -Treatment Response Procedure Tolerated Well -Debridement - Subq, 1st 20sq cm Yes -Debridement, SubQ, ea addt'l 20sq cm 7 or part thereof Pain Scale: 0-10 Numeric Is Patient Pain Free? Yes WC - Nurse 3 - General Ulcer D/C NN Start: 01/13/24 11:06 Freq: Status: Active Protocol: Activity Type Activity Date Activity User E-sign Co-sign Detail Recorded Client Recorded Date Recorded By Document 01/13/24 11:51 MT Desktop 01/13/24 12:08 MT Document 01/20/24 10:55 RB Desktop 01/20/24 10:57 RB Document 01/27/24 10:44 MT Desktop 01/27/24 10:48 MT Document 02/03/24 11:04 DS [id number] 02/03/24 11:08 DS 01/13/24 01/20/24 01/27/24 11:51 10:55 10:44 Wound Care Center Nurse 3 #18 Left medial LE cluster -Ulcer Cleansing Rinsed/ Rinsed/ Irrigated with Irrigated with Saline Saline -Foul Odor after Cleansing No -Negative Pressure Wound Therapy N/A -Primary Dressing Applied Aquacel Extra Aquacel Extra Aquacel Extra, Fibracol Plus 4x4,Optilok 8x12 -Other Dressing super absorber ABD -Primary Dressing Covered/Secured with Dry Gauze & Dry Gauze & Dry Gauze, Roll Gauze, Roll Gauze, Secured with Secured with Secured with Tape Tape Tape -Aquacel Extra 1 2 1 -Fibracol Plus 4x4 1 -Optilok 8x12 1 Right -Tubular Bandage Single Layer Single Layer Single Layer -Size of Tubigrip Used Size F Size F Size F -Size F ($) 1 1 1 -Other F HCS Left -Compression Wrap Marcio Wrap -Tubular Bandage Single Layer Single Layer Single Layer -Size of Tubigrip Used Size F Size F Size F -Size F ($) 1 1 1 -Other F HCS Pain Scale: 0-10 Numeric Is Patient Pain Free? Yes Yes Yes WC - Visit Discharge Discharge Condition Stable Ambulatory Status Ambulatory, Walker Transportation [facility] Medication Reconcilliation completed & No provided to patient/care provider Clinical Summary of Care Provided Yes 02/03/24 11:04 Wound Care Center Nurse 3 #18 Left medial LE cluster -Ulcer Cleansing Rinsed/ Irrigated with Saline -Foul Odor after Cleansing -Negative Pressure Wound Therapy -Primary Dressing Applied Aquacel Extra, Fibracol Plus 4x4 -Other Dressing -Primary Dressing Covered/Secured with Dry Gauze, Secured with Tape -Aquacel Extra 1 -Fibracol Plus 4x4 1 -Optilok 8x12 Right -Tubular Bandage -Size of Tubigrip Used -Size F ($) -Other Left -Compression Wrap -Tubular Bandage -Size of Tubigrip Used -Size F ($) -Other Pain Scale: 0-10 Numeric Is Patient Pain Free? Yes WC - Visit Discharge Discharge Condition Stable Ambulatory Status Walker Transportation [facility] transport Medication Reconcilliation completed & provided to patient/care provider Clinical Summary of Care Provided Yes Assessment/Plan Assessment/Plan (1) Lymphedema: CODE(S): I89.0 - Lymphedema, not elsewhere classified (2) Hypertension: CODE(S): I10 - Essential (primary) hypertension QUALIFIERS: Hypertension type: primary hypertension Qualified C ode(s): I10 - Essential (primary) hypertension (3) Hyperlipidemia: CODE(S): E78.5 - Hyperlipidemia, unspecified QUALIFIERS: Hyperlipidemia type: mixed hyperlipidemia Qualified Code(s): E78.2 - Mixed hyperlipidemia (4) History of DVT (deep vein thrombosis): CODE(S): Z86.718 - Personal history of other venous thrombosis and embolism (5) Venous insufficiency (chronic) (peripheral): CODE(S): I87.2 - Venous insufficiency (chronic) (peripheral) (6) Venous ulcer of left lower extremity with varicose veins: CODE(S): I83.029 - Varicose veins of left lower extremity with ulcer of unspecified site (7) Edema: CODE(S): R60.9 - Edema, unspecified QUALIFIERS: Edema type: unspecified Qualified Code(s): R60.9 - Edema, unspecified PLAN: Plan Evaluation and debridement of left medial LE ulcer performed today in clinic as annotated above. At home wound-care instructions: Will continue to dress his ulcers with Fibracol daily and cover with Aquacel Extra and ABD and gauze. If his ulcers are dry then would decrease frequency of changes to every other day. Continue compression with F tubigrips b/l. Due to the delayed progress in wound healing of his venous ulcers, we discussed applying for advanced wound healing product for healing his ulcer. Due to the size of his ulcer, Theraskin application approval is being requested from his insurance as it is medically necessary for salvaging his limb and healing his ulcer. He underwent 2 applications of Theraskin to this ulcer. Since application of Theraskin he has had much improvement in epitheliazation of his ulcer even though the overall size is not significantly changed there is progress. Off-loading: The patient was instructed to avoid pressure and friction on the affected areas. Reposition every 2 hours at minimum. Avoid prolonged standing and/or dangling of legs. When seated, feet should be elevated at chest level. F requent ambulation is encouraged. Encouraged lymphedema pump use. Diet: Patient encouraged to increase protein intake while taking caution to avoid high carbohydrate and/or sugar intake. Labs/cultures/imaging: Wound culture showed 1+ Pseudomonas that is sensitive to Levofloxacin and completed treatment on 08/16/23. Follow-up: Return in 1 week for wound care follow up and have secondary dressing changed by home health Tuesday and Tuesday. Return sooner or report to the emergency room should symptoms worsen, or new symptoms arise. Note: [employer] speech recognition social work specialist software was used to create portions of this document. Sound-alike and misspelled words, as well as other social work specialist errors may be contained in the documentation.
== END 2024-02-07 23:59 | disposition home or self-care (01) ==
LOC: WC 09:30
PROVIDERS: PCP Family Medicine; Referring Provider Family Medicine; Visit Provider Family Medicine
DX: L97.922 Non-pressure chronic ulcer of unspecified part of left lower leg with fat layer exposed (principal); I83.029 Varicose veins of left lower extremity with ulcer of unspecified site; M79.10 Myalgia, unspecified site; M79.605 Pain in left leg; I89.0 Lymphedema, not elsewhere classified; I10 Essential (primary) hypertension; E78.5 Hyperlipidemia, unspecified; Z86.718 Personal history of other venous thrombosis and embolism; I87.2 Venous insufficiency (chronic) (peripheral); R60.9 Edema, unspecified
CPT/HCPCS: 11042; 11045

== ENCOUNTER 2024-03-02 09:30 | Outpatient (RCR) | payer MEDICARE, OTHER, SELFPAY ==
[2024-02-08 00:20] VITALS: BP 114/57; PULSE 73; RESP 18; TEMP 36.4
[2024-02-10 09:33] VITALS: RESP 18; TEMP 36
--- NOTE | 2024-02-10 12:37 | PCM.WC.PN ---
History of Present Illness Date of Service: 02/10/24 Chief Complaint: venous ulcers of left lower extremity History of Wound: Mauricio is a 68 yo gentleman who is here today for evaluation of ulcers to to his bilateral lower legs. He has been treated multiple times in the past at the wound healing center for similar ulcers. The left LE ulcer started after he developed increased swelling and blisters of left leg in October and the right leg started sometime at the end of October. He was seen at PCP's office a culture was taken and it was resistant to several antibiotics. He was treated initially with Levaquin but had myalgias and then was treated with doxycycline which he finished 2 days ago. He denies improvement and is having swelling to his left calf and thigh. He has been having swelling to both lower extremities for many years and it has worsened over the last few months. He has not been compliant with compression. He has had increased pain especially in the left leg. He has clear yellow drainage and redness without odor or warmth. He is anti-coagulated on coumadin. He has been washing with Dial soap and witch ifrah. He had been using Collagen at times and using Calcium Alginate and covering with ABD pads during October. He was treated with 3M compression and Aquacel Ag. He was referred to the wound center for ongoing treatment. His ulcers have moderate to heavy drainage. He was recently hospitalized for cellulitis and edema for the last 10 days. He was in the hospital from 11/30/22 until 12/09/22 for treatment of cellulitis and edema. He underwent treatment with Vancomycin and IV lasix and compression. Discharged on 12/09/22. He returned to his assisted living apartment on Tuesday12/21/22. Subjective Subjective Mauricio is a 68-year-old male with longstanding history of chronic venous ulceration to the left lower extremity. He has been using Fibracol and tolerating it ok. There has been improvement in his ulcer overall. He reports significantly decreased drainage. He is using ABD and size F Tubigrips for compression. 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 He continues to use his lymphedema pumps but continues to have pain with use of these pumps. Objective Data Objective Data Vital Signs: Vital Signs Temp Pulse Resp BP O2 Del Method 96.8 F L 73 18 114/57 L Room Air 02/10/24 09:33 02/08/24 00:20 02/10/24 09:33 02/08/24 00:20 02/10/24 09:33 Oxygen Delivery Method Room Air Physical Exam Const alert, oriented x3 and no apparent distress General Appearance: cooperative and comfortable HEENT normocephalic and head/scalp atraumatic Lymph Lymphatic: lymphedema moderate Resp normal respiratory effort Effort and Inspection: able to speak in complete sentences Cardio regular rate and regular rhythm Extremity General Extremity: edema bilateral lower extremity Details: severe Skin Wounds: wounds noted Wound Narrative: as in clinical panel Psych mental status grossly normal, thought process normal, cooperative and affect normal Debridement Note Debridement Note Wound debrided: left medial LE ulcer Laterality: Left Type of Debridement: Excisional debridement Anesthesia Used: 4% Lidocaine Solution and Cetacaine Depth: Down to and including healthy tissue and in the subcutaneous layer Percentage of wound debrided: 100 Instrument Used: - (Misonix ultrasonic debridement) Tissue Removed: Yellow slough, devitalized tissue Severity: Fat Layer Exposed Amount of bleeding with debridement: Mild Bleeding Controlled with: Compression and gauze Patient tolerated procedure: Patient tolerated procedure well Post-Debridement Measurements and Additional Note: Post-Debridement Measurements/Treatment - Nurse 1 - General Ulcer Assessment Start: 02/10/24 09:33 Freq: Status: Active Protocol: ONDINA Activity Type Activity Date Activity User E-sign Co-sign Detail Recorded Client Recorded Date Recorded By Document 02/10/24 09:33 KW Desktop 02/10/24 09:37 KW 02/10/24 09:33 - Today's Visit Information Type of service Follow-up Visit (Physician/PASTRY COOK APPRENTICE ) Arrival Mode Ambulatory, Walker Patient Identification Verified (Name & Yes ) Vital Signs Temperature (97.8 F-99.1 F) 96.8 F L Temperature Source Temporal Pulse Location Monitor Respiratory Rate (12-18) 18 Respiratory rate source Observation Oxygen Delivery Method Room Air Source Monitor Position Semi-Fowlers Blood Pressure Location Right Arm History Since Last Visit- (Skip if this is Patient's initial visit) Have you changed medications since your No last visit? Any new allergies or adverse reactions No Had a fall/change in ADL's that may No increase risk of falls Signs or symptoms of abuse and/or No neglect since last visit Have you been in the hospital since your No last visit? Has dressing in place as prescribed Yes Has compression in place as prescribed Yes Has offloadiing in place as prescribed N/A Experienced any changes in pain level or No management Left Footwear Regular Shoe Right Footwear Regular Shoe Pain Scale: 0-10 Numeric Is Patient Pain Free? Yes WC - Nurse 1 - General Ulcer Measurement Start: 02/10/24 09:33 Freq: Status: Active Protocol: Activity Type Activity Date Activity User E-sign Co-sign Detail Recorded Client Recorded Date Recorded By Document 02/10/24 09:33 Desktop 02/10/24 09:37 02/10/24 09:33 Wound Center Nurse 1 #18 Left medial LE cluster -Current Size (cm) - Length 15 -Current Size (cm) - Width 8.6 -Current Size (cm) - Depth 0.2 -Total Square Cm 129.0 -Exudate Amt Medium -Exudate Type Serosanguineous -Wound Margin Distinct, Outline Attached -Granulation Amt Large (67-100%) -Granulation Quality [place] -Texture (Marie-wound Skin Appearance) Assessed -Moisture (Marie-wound Skin Appearance) Assessed -Color (Marie-wound Skin Appearance) Assessed -Temperature (Marie-wound Skin No Abnormality Appearance) (Pt Warm) -Tenderness on Palpation (Marie-wound No Skin Appearance) -Ulcer Cleansing Soap and Water -Foul Odor after Cleansing No -Anesthetic Used 5% Lidocaine Gel Left Calf (cm) 43.5 Left Ankle (cm) 29.7 WC - Nurse 2 - General Ulcer CM Notes Start: 02/10/24 09:33 Freq: Status: Active Protocol: Activity Type Activity Date Activity User E-sign Co-sign Detail Recorded Client Recorded Date Recorded By Document 02/10/24 09:50 [place] 02/10/24 10:14 02/10/24 09:50 Wound Center Nurse 2 #18 Left medial LE cluster -Time 09:50 -Correct Patient Yes -Correct Side, Site, Position Yes -Correct Procedure Yes -Procedure Performed Yes -Type of Procedure Debridement -Clinical Debridement Subcutaneous -Tissue Removed Subcutaneous -Post Debridement (cm) - Length 9.3 -Post Debridement (cm) - Width 17.0 -Post Debridement (cm) - Depth 0.1 -Total Square (Post) (cm) 158.10 -Area of Debridement (cm) - Length 9.3 -Area of Debridement (cm) - Width 17.0 -Total Square (Area) (cm) 158.10 -Tunneling No -Undermining/Tunneling No -Circular Undermining No -Wound/Ulcer Outcome Not Healed -Bleeding Controlled with Pressure -Treatment Response Procedure Tolerated Well -Debridement - Subq, 1st 20sq cm Yes -Debridement, SubQ, ea addt'l 20sq cm 7 or part thereof Pain Scale: 0-10 Numeric Is Patient Pain Free? Yes - Nurse 3 - General Ulcer D/C NN Start: 02/10/24 09:33 Freq: Status: Active Protocol: Activity Type Activity Date Activity User E-sign Co-sign Detail Recorded Client Recorded Date Recorded By Document 02/10/24 10:24 RB Desktop 02/10/24 10:25 RB 02/10/24 10:24 Wound Care Center Nurse 3 #18 Left medial LE cluster -Primary Dressing Applied Aquacel Extra, Fibracol Plus 4x4 -Primary Dressing Covered/Secured with Dry Gauze & Roll Gauze, Secured with Tape -Aquacel Extra 1 -Fibracol Plus 4x4 1 Right -Tubular Bandage Single Layer -Size of Tubigrip Used Size F -Size F ($) 1 -Other HCS BRAND Left -Tubular Bandage Single Layer -Size of Tubigrip Used Size F -Size F ($) 1 -Other HCS BRAND Pain Scale: 0-10 Numeric Is Patient Pain Free? Yes - Visit Discharge Discharge Condition Stable Ambulatory Status Ambulatory, Walker Transportation Private Auto Medication Reconcilliation completed & No provided to patient/care provider Clinical Summary of Care Provided Yes Assessment/Plan Assessment/Plan (1) Lymphedema: CODE(S): I89.0 - Lymphedema, not elsewhere classified (2) Hypertension: CODE(S): I10 - Essential (primary) hypertension QUALIFIERS: Hypertension type: primary hypertension Qualified Code(s): I10 - Essential (primary) hypertension (3) Hyperlipidemia: CODE(S): E78.5 - Hyperlipidemia, unspecified QUALIFIERS: Hyperlipidemia type: mixed hyperlipidemia Qualified Code(s): E78.2 - Mixed hyperlipidemia (4) History of DVT (deep vein thrombosis): CODE(S): Z86.718 - Personal history of other venous thrombosis and embolism (5) Venous insufficiency (chronic) (peripheral): CODE(S): I87.2 - Venous insufficiency (chronic) (peripheral) (6) Venous ulcer of left lower extremity with varicose veins: CODE(S): I83.029 - Varicose veins of left lower extremity with ulcer of unspecified site (7) Edema: CODE(S): R60.9 - Edema, unspecified QUALIFIERS: Edema type: unspecified Qualified Code(s): R60.9 - Edema, unspecified PLAN: Plan Evaluation and debridement of left medial LE ulcer performed today in clinic as annotated above. At home wound-care instructions: Will continue to dress his ulcers with Fibracol daily and cover with Aquacel Extra and ABD and gauze. If his ulcers are dry then would decrease frequency of changes to every other day. Continue compression with F tubigrips b/l. Due to the delayed progress in wound healing of his venous ulcers, we discussed applying for advanced wound healing product for healing his ulcer. Due to the size of his ulcer, Theraskin application approval is being requested from his insurance as it is medically necessary for salvaging his limb and healing his ulcer. He underwent 2 applications of Theraskin to this ulcer. Since application of Theraskin he has had much improvement in epitheliazation of his ulcer even though the overall size is not significantly changed there is progress. Off-loading: The patient was instructed to avoid pressure and friction on the affected areas. Reposition every 2 hours at minimum. Avoid prolonged standing and/or dangling of legs. When seated, feet should be elevated at chest level. Frequent ambulation is encouraged. Encouraged lymphedema pump use. Diet: Patient encouraged to increase protein intake while taking caution to avoid high carbohydrate and/or sugar intake. Labs/cultures/imaging: Wound culture showed 1+ Pseudomonas that is sensitive to Levofloxacin and completed treatment on 08/16/23. Follow-up: Return in 1 week for wound care follow up and have secondary dressing changed by home health Tuesday and Tuesday. Return sooner or report to the emergency room should symptoms worsen, or new symptoms arise. Note: [employer] speech recognition supervisor rice milling software was used to create portions of this document. Sound-alike and misspelled words, as well as other supervisor rice milling errors may be contained in the documentation.
[2024-02-17 09:42] VITALS: BP 99/53; PULSE 65; RESP 18; TEMP 35.4
--- NOTE | 2024-02-17 13:03 | PN.PCM_ITS ---
History of Present Illness Date of Service: 02/17/24 Chief Complaint: venous ulcers of left lower extremity History of Wound: Mauricio is a 68 yo gentleman who is here today for evaluation of ulcers to to his bilateral lower legs. He has been treated multiple times in the past at the wound healing center for similar ulcers. The left LE ulcer started after he developed increased swelling and blisters of left leg in October and the right leg started sometime at the end of October. He was seen at PCP's office a culture was taken and it was resistant to several antibiotics. He was treated initially with Levaquin but had myalgias and then was treated with doxycycline which he finished 2 days ago. He denies improvement and is having swelling to his left calf and thigh. He has been having swelling to both lower extremities for many years and it has worsened over the last few months. He has not been compliant with compression. He has had increased pain especially in the left leg. He has clear yellow drainage and redness without odor or warmth. He is anti- coagulated on coumadin. He has been washing with Dial soap and witch ifrah. He had been using Collagen at times and using Calcium Alginate and covering with ABD pads during October. He was treated with 3M compression and Aquacel Ag. He was referred to the wound center for ongoing treatment. His ulcers have moderate to heavy drainage. He was recently hospitalized for cellulitis and edema for the last 10 days. He was in the hospital from 11/30/22 until 12/09/22 for treatment of cellulitis and edema. He underwent treatment with Vancomycin and IV lasix and compression. Discharged on 12/09/22. He returned to his assisted living apartment on Tuesday12/21/22. Subjective Subjective Mauricio is a 68-year-old male with longstanding history of chronic venous ulceration to the left lower extremity. He has been using Fibracol and tolerating it ok. There has been improvement in his ulcer overall. He reports significantly decreased drainage. He is using ABD and size F Tubigrips for compression. 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 He continues to use his lymphedema pumps but continues to have pain with use of these pumps. Objective Data Objective Data Vital Signs: Vital Signs Temp Pulse Resp BP O2 Del Method 95.8 F L 65 18 99/53 L Room Air 02/17/24 09:42 02/17/24 09:42 02/17/24 09:42 02/17/24 09:42 02/10/24 09:33 Oxygen Delivery Method Room Air Physical Exam Const alert, oriented x3 and no apparent distress General Appearance: cooperative and comfortable HEENT normocephalic and head/scalp atraumatic Lymph Lymphatic: lymphedema moderate Resp normal respiratory effort Effort and Inspection: able to speak in complete sentences Cardio regular rate and regular rhythm Extremity General Extremity: edema bilateral lower extremity Details: severe Skin Wounds: wounds noted Wound Narrative: as in clinical panel Psych mental status grossly normal, thought process normal, cooperative and affect normal Debridement Note Debridement Note Wound debrided: left medial LE ulcer Laterality: Left Type of Debridement: Excisional debridement Anesthesia Used: 4% Lidocaine Solution and Cetacaine Depth: Down to and including healthy tissue and in the subcutaneous layer Percentage of wound debrided: 100 Instrument Used: - (Misonix ultrasonic debridement) Tissue Removed: Yellow slough, devitalized tissue Severity: Fat Layer Exposed Amount of bleeding with debridement: Mild Bleeding Controlled with: Compression and gauze Patient tolerated procedure: Patient tolerated procedure well Post-Debridement Measurements and Additional Note: Post-Debridement Measurements/Treatment - Nurse 1 - General Ulcer Assessment Start: 02/10/24 09:33 Freq: Status: Active Protocol: ONDINA Activity Type Activity Date Activity User E-sign Co-sign Detail Recorded Client Recorded Date Recorded By Document 02/10/24 09:33 KW Desktop 02/10/24 09:37 KW Document 02/17/24 09:42 RB Desktop 02/17/24 09:46 RB 02/10/24 02/17/24 09:33 09:42 - Today's Visit Information Type of service Follow-up Visit Follow-up Visit (Physician/DUE DILIGENCE COORDINATOR (Physician/DUE DILIGENCE COORDINATOR ) ) Arrival Mode Ambulatory, Ambulatory, Walker Walker Transfer Assistance None Patient Identification Verified (Name & Yes Yes ) Patient Requires Transmission-Based No Precautions Vital Signs Temperature (97.8 F-99.1 F) 96.8 F L 95.8 F L Temperature Source Temporal Temporal Pulse Rate (60-100) 65 Pulse Location Monitor Monitor Respiratory Rate (12-18) 18 18 Respiratory rate source Observation Observation Oxygen Delivery Method Room Air Blood Pressure (90/60-120/80) 99/53 L Blood Pressure Mean (mm Hg) 68 Source Monitor Monitor Position Semi-Fowlers Semi-Fowlers Blood Pressure Location Right Arm Left Arm History Since Last Visit- (Skip if this is Patient's initial visit) Have you changed medications since your No No last visit? Any new allergies or adverse reactions No No Had a fall/change in ADL's that may No No increase risk of falls Signs or symptoms of abuse and/or No No neglect since last visit Have you been in the hospital since your No No last visit? Has dressing in place as prescribed Yes Yes Has compression in place as prescribed Yes No Has offloadiing in place as prescribed N/A No Experienced any changes in pain level or No No management Left Footwear Regular Shoe Right Footwear Regular Shoe Pain Scale: 0-10 Numeric Is Patient Pain Free? Yes Yes WC - Nurse 1 - General Ulcer Measurement Start: 02/10/24 09:33 Freq: Status: Active Protocol: Activity Type Activity Date Activity User E-sign Co-sign Detail Recorded Client Recorded Date Recorded By Document 02/10/24 09:33 KW Desktop 02/10/24 09:37 KW Document 02/17/24 09:42 RB Desktop 02/17/24 09:46 RB 02/10/24 02/17/24 09:33 09:42 Wound Center Nurse 1 #18 Left medial LE cluster -Combined with other wound No -Current Size (cm) - Length 15 9 -Current Size (cm) - Width 8.6 18.5 -Current Size (cm) - Depth 0.2 0.1 -Total Square Cm 129.0 166.5 -Tunneling No -Undermining/Tunneling No -Circular Undermining No -Exudate Amt Medium Medium -Exudate Type Serosanguineous Serosanguineous -Wound Margin Distinct, Distinct, Outline Outline Attached Attached -Granulation Amt Large (67-100%) Medium (34-66%) -Granulation Quality [place] -Slough/Fibrin Yes -Necrosis Amt Medium (34-66%) -Necrotic Tissue Type Adherent Slough -Structure Exposed N/A -Texture (Marie-wound Skin Appearance) Assessed Assessed -Moisture (Marie-wound Skin Appearance) Assessed Assessed -Color (Marie-wound Skin Appearance) Assessed Assessed -Temperature (Marie-wound Skin No Abnormality No Abnormality Appearance) (Pt Warm) (Pt Warm) -Tenderness on Palpation (Marie-wound No No Skin Appearance) -Ulcer Cleansing Soap and Water Wound Cleanser -Foul Odor after Cleansing No No -Anesthetic Used 5% Lidocaine 5% Lidocaine Gel Gel Lower Limb Edema Present Yes Left Calf (cm) 43.5 42 Left Ankle (cm) 29.7 28.5 - Nurse 2 - General Ulcer CM Notes Start: 02/10/24 09:33 Freq: Status: Active Protocol: Activity Type Activity Date Activity User E-sign Co-sign Detail Recorded Client Recorded Date Recorded By Document 02/10/24 09:50 Desktop 02/10/24 10:14 GM Document 02/17/24 09:52 Desktop 02/17/24 10:05 GM 02/10/24 02/17/24 09:50 09:52 Wound Center Nurse 2 #18 Left medial LE cluster -Time 09:50 09:53 -Correct Patient Yes Yes -Correct Side, Site, Position Yes Yes -Correct Procedure Yes Yes -Procedure Performed Yes Yes -Type of Procedure Debridement Debridement -Clinical Debridement Subcutaneous Subcutaneous -Tissue Removed Subcutaneous Subcutaneous -Post Debridement (cm) - Length 9.3 9.3 -Post Debridement (cm) - Width 17.0 16 -Post Debridement (cm) - Depth 0.1 0.1 -Total Square (Post) (cm) 158.10 148.8 -Area of Debridement (cm) - Length 9.3 9.3 -Area of Debridement (cm) - Width 17.0 16 -Total Square (Area) (cm) 158.10 148.8 -Tunneling No No -Undermining/Tunneling No No -Circular Undermining No No -Wound/Ulcer Outcome Not Healed Not Healed -Ulcer Cleansing Rinsed/ Irrigated with Saline -Foul Odor after Cleansing No -Bioengineered Tissue No -Bleeding Controlled with Pressure Pressure -Treatment Response Procedure Procedure Tolerated Well Tolerated Well -Debridement - Subq, 1st 20sq cm Yes Yes -Debridement, SubQ, ea addt'l 20sq cm 7 7 or part thereof Pain Scale: 0-10 Numeric Is Patient Pain Free? Yes Yes - Nurse 3 - General Ulcer D/C NN Start: 02/10/24 09:33 Freq: Status: Active Protocol: Activity Type Activity Date Activity User E-sign Co-sign Detail Recorded Client Recorded Date Recorded By Document 02/10/24 10:24 RB Desktop 02/10/24 10:25 RB Document 02/17/24 10:14 DL Desktop 02/17/24 10:16 DL 02/10/24 02/17/24 10:24 10:14 Wound Care Center Nurse 3 #18 Left medial LE cluster -Ulcer Cleansing Soap and Water -Foul Odor after Cleansing No -Primary Dressing Applied Aquacel Extra, Aquacel Extra, Fibracol Plus Fibracol Plus 4x4 4x4 -Primary Dressing Covered/Secured with Dry Gauze & Dry Gauze & Roll Gauze, Roll Gauze, Secured with Secured with Tape Tape -Aquacel Extra 1 1 -Fibracol Plus 4x4 1 1 -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) dressing applied per Yasmin Vasquez today in clinic . wili -Tubular Bandage Single Layer -Size of Tubigrip Used Size F -Size F ($) 1 Right -Tubular Bandage Single Layer -Size of Tubigrip Used Size F -Size F ($) 1 -Other HCS BRAND Left -Tubular Bandage Single Layer -Size of Tubigrip Used Size F -Size F ($) 1 -Other HCS BRAND Treatment Response Procedure Tolerated Well Pain Scale: 0-10 Numeric Is Patient Pain Free? Yes Yes WC - Visit Discharge Discharge Condition Stable Stable Ambulatory Status Ambulatory, Ambulatory Walker Transportation Private Auto Private Auto Medication Reconcilliation completed & No provided to patient/care provider Clinical Summary of Care Provided Yes Facility Type Home Health Orders Sent Yes Assessment/Plan Assessment/Plan (1) Lymphedema: CODE(S): I89.0 - Lymphedema, not elsewhere classified (2) Hypertension: CODE(S): I10 - Essential (primary) hypertension QUALIFIERS: Hypertension type: primary hypertension Qualified Code(s): I10 - Essential (primary) hypertension (3) Hyperlipidemia: CODE(S): E78.5 - Hyperlipidemia, unspecified QUALIFIERS: Hyperlipidemia type: mixed hyperlipidemia Qualified Code(s): E78.2 - Mixed hyperlipidemia (4) History of DVT (deep vein thrombosis): CODE(S): Z86.718 - Personal history of other venous thrombosis and embolism (5) Venous insufficiency (chronic) (peripheral): CODE(S): I87.2 - Venous insufficiency (chronic) (peripheral) (6) Venous ulcer of left lower extremity with varicose veins: CODE(S): I83.029 - Varicose veins of left lower extremity with ulcer of unspecified site (7) Edema: CODE(S): R60.9 - Edema, unspecified QUALIFIERS: Edema type: unspecified Qualified Code(s): R60.9 - Edema, unspecified PLAN: Plan Evaluation and debridement of left medial LE ulcer performed today in clinic as annotated above. At home wound-care instructions: Will continue to dress his ulcers with Fibracol daily and cover with Aquacel Extra and gauze. If his ulcers are dry then would decrease frequency of changes to every other day. Continue compression with F tubigrips b/l. Due to the delayed progress in wound healing of his venous ulcers, we discussed applying for advanced wound healing product for healing his ulcer. Due to the size of his ulcer, Theraskin application approval is being requested from his insurance as it is medically necessary for salvaging his limb and healing his ulcer. He underwent 2 applications of Theraskin to this ulcer. Since application of Theraskin he has had much improvement in epitheliazation of his ulcer even though the overall size is not significantly changed there is progress. Off-loading: The patient was instructed to avoid pressure and friction on the affected areas. Reposition every 2 hours at minimum. Avoid prolonged standing and/or dangling of legs. When seated, feet should be elevated at chest level. Frequent ambulation is encouraged. Encouraged lymphedema pump use. Diet: Patient encouraged to increase protein intake while taking caution to avoid high carbohydrate and/or sugar intake. Labs/cultures/imaging: Wound culture showed 1+ Pseudomonas that is sensitive to Levofloxacin and completed treatment on 08/16/23. Follow-up: Return in 1 week for wound care follow up and have secondary dressing changed by home health Tuesday and Tuesday. Return sooner or report to the emergency room should symptoms worsen, or new symptoms arise. Note: [employer] speech recognition superintendent transportation software was used to create portions of this document. Sound-alike and misspelled words, as well as other superintendent transportation errors may be contained in the documentation.
[2024-02-24 09:27] VITALS: BP 121/55; PULSE 73; RESP 18; TEMP 35.5
--- NOTE | 2024-02-24 10:43 | PN.PCM_ITS ---
History of Present Illness Date of Service: 02/24/24 Chief Complaint: venous ulcers of left lower extremity History of Wound: Mauricio is a 68 yo gentleman who is here today for evaluation of ulcers to to his bilateral lower legs. He has been treated multiple times in the past at the wound healing center for similar ulcers. The left LE ulcer started after he developed increased swelling and blisters of left leg in October and the right leg started sometime at the end of October. He was seen at PCP's office a culture was taken and it was resistant to several antibiotics. He was treated initially with Levaquin but had myalgias and then was treated with doxycycline which he finished 2 days ago. He denies improvement and is having swelling to his left calf and thigh. He has been having swelling to both lower extremities for many years and it has worsened over the last few months. He has not been compliant with compression. He has had increased pain especially in the left leg. He has clear yellow drainage and redness without odor or warmth. He is anti- coagulated on coumadin. He has been washing with Dial soap and witch ifrah. He had been using Collagen at times and using Calcium Alginate and covering with ABD pads during October. He was treated with 3M compression and Aquacel Ag. He was referred to the wound center for ongoing treatment. His ulcers have moderate to heavy drainage. He was recently hospitalized for cellulitis and edema for the last 10 days. He was in the hospital from 11/30/22 until 12/09/22 for treatment of cellulitis and edema. He underwent treatment with Vancomycin and IV lasix and compression. Discharged on 12/09/22. He returned to his assisted living apartment on Tuesday12/21/22. Subjective Subjective Mauricio is a 68-year-old male with longstanding history of chronic venous ulceration to the left lower extremity. He has been using Fibracol and tolerating it ok. There has been improvement in his ulcer overall. He reports significantly decreased drainage. He is using ABD and size F Tubigrips for compression. 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 He continues to use his lymphedema pumps but continues to have pain with use of these pumps. Objective Data Objective Data Vital Signs: Vital Signs Temp Pulse Resp BP O2 Del Method 95.9 F L 73 18 121/55 H Room Air 02/24/24 09:27 02/24/24 09:27 02/24/24 09:27 02/24/24 09:27 02/24/24 09:27 Oxygen Delivery Method Room Air Physical Exam Const alert, oriented x3 and no apparent distress General Appearance: cooperative and comfortable HEENT normocephalic and head/scalp atraumatic Lymph Lymphatic: lymphedema moderate Resp normal respiratory effort Effort and Inspection: able to speak in complete sentences Cardio regular rate and regular rhythm Extremity General Extremity: edema bilateral lower extremity Details: severe Skin Wounds: wounds noted Wound Narrative: as in clinical panel Psych mental status grossly normal, thought process normal, cooperative and affect normal Debridement Note Debridement Note Wound debrided: left medial LE ulcer Laterality: Left Type of Debridement: Excisional debridement Anesthesia Used: 4% Lidocaine Solution and Cetacaine Depth: Down to and including healthy tissue and in the subcutaneous layer Percentage of wound debrided: 100 Instrument Used: - (Misonix ultrasonic debridement) Tissue Removed: Yellow slough, devitalized tissue Severity: Fat Layer Exposed Amount of bleeding with debridement: Mild Bleeding Controlled with: Compression and gauze Patient tolerated procedure: Patient tolerated procedure well Post-Debridement Measurements and Additional Note: Post-Debridement Measurements/Treatment - Nurse 1 - General Ulcer Assessment Start: 02/10/24 09:33 Freq: Status: Active Protocol: ONDINA Activity Type Activity Date Activity User E-sign Co-sign Detail Recorded Client Recorded Date Recorded By Document 02/10/24 09:33 KW Desktop 02/10/24 09:37 KW Document 02/17/24 09:42 RB Desktop 02/17/24 09:46 RB Document 02/24/24 09:27 KW wound center 02/24/24 09:36 KW 02/10/24 02/17/24 02/24/24 09:33 09:42 09:27 - Today's Visit Information Type of service Follow-up Visit Follow-up Visit Follow-up Visit (Physician/CHIROPRACTIC TEACHER (Physician/CHIROPRACTIC TEACHER (Physician/CHIROPRACTIC TEACHER ) ) ) Arrival Mode Ambulatory, Ambulatory, Ambulatory, Walker Walker Walker Transfer Assistance None Patient Identification Verified (Name & Yes Yes Yes ) Patient Requires Transmission-Based No Precautions Vital Signs Temperature (97.8 F-99.1 F) 96.8 F L 95.8 F L 95.9 F L Temperature Source Temporal Temporal Temporal Pulse Rate (60-100) 65 73 Pulse Location Monitor Monitor Monitor Respiratory Rate (12-18) 18 18 18 Respiratory rate source Observation Observation Observation Oxygen Delivery Method Room Air Room Air Blood Pressure (90/60-120/80) 99/53 L 121/55 H Blood Pressure Mean (mm Hg) 68 77 Source Monitor Monitor Monitor Position Semi-Fowlers Semi-Fowlers Semi-Fowlers Blood Pressure Location Right Arm Left Arm Left Arm History Since Last Visit- (Skip if this is Patient's initial visit) Have you changed medications since your No No No last visit? Any new allergies or adverse reactions No No No Had a fall/change in ADL's that may No No No increase risk of falls Signs or symptoms of abuse and/or No No No neglect since last visit Have you been in the hospital since your No No No last visit? Has dressing in place as prescribed Yes Yes Yes Has compression in place as prescribed Yes No Yes Has offloadiing in place as prescribed N/A No N/A Experienced any changes in pain level or No No No management Left Footwear Regular Shoe Regular Shoe Right Footwear Regular Shoe Regular Shoe Pain Scale: 0-10 Numeric Is Patient Pain Free? Yes Yes Yes WC - Nurse 1 - General Ulcer Measurement Start: 02/10/24 09:33 Freq: Status: Active Protocol: Activity Type Activity Date Activity User E-sign Co-sign Detail Recorded Client Recorded Date Recorded By Document 02/10/24 09:33 KW Desktop 02/10/24 09:37 KW Document 02/17/24 09:42 RB Desktop 02/17/24 09:46 RB Document 02/24/24 09:27 KW wound center 02/24/24 09:36 KW 02/10/24 02/17/24 02/24/24 09:33 09:42 09:27 Wound Center Nurse 1 #18 Left medial LE cluster -Combined with other wound No -Current Size (cm) - Length 15 9 -Current Size (cm) - Width 8.6 18.5 -Current Size (cm) - Depth 0.2 0.1 -Total Square Cm 129.0 166.5 -Tunneling No -Undermining/Tunneling No -Circular Undermining No -Exudate Amt Medium Medium Small -Exudate Type Serosanguineous Serosanguineous Serosanguineous -Wound Margin Distinct, Distinct, Distinct, Outline Outline Outline Attached Attached Attached -Granulation Amt Large (67-100%) Medium (34-66%) Large (67-100%) -Granulation Quality [place] Red -Slough/Fibrin Yes -Necrosis Amt Medium (34-66%) Small (1-33%) -Necrotic Tissue Type Adherent Slough Adherent Slough -Structure Exposed N/A -Texture (Marie-wound Skin Appearance) Assessed Assessed Assessed -Moisture (Marie-wound Skin Appearance) Assessed Assessed Assessed -Color (Marie-wound Skin Appearance) Assessed Assessed Assessed, Erythema -Temperature (Marie-wound Skin No Abnormality No Abnormality No Abnormality Appearance) (Pt Warm) (Pt Warm) (Pt Warm) -Tenderness on Palpation (Marie-wound No No No Skin Appearance) -Ulcer Cleansing Soap and Water Wound Cleanser Soap and Water -Foul Odor after Cleansing No No No -Anesthetic Used 5% Lidocaine 5% Lidocaine 4% Lidocaine Gel Gel Solution,5% Lidocaine Gel Lower Limb Edema Present Yes Left Calf (cm) 43.5 42 Left Ankle (cm) 29.7 28.5 WC - Nurse 2 - General Ulcer CM Notes Start: 02/10/24 09:33 Freq: Status: Active Protocol: Activity Type Activity Date Activity User E-sign Co-sign Detail Recorded Client Recorded Date Recorded By Document 02/10/24 09:50 Desktop 02/10/24 10:14 Document 02/17/24 09:52 Desktop 02/17/24 10:05 Document 02/24/24 10:11 wound center 02/24/24 10:25 02/10/24 02/17/24 02/24/24 09:50 09:52 10:11 Wound Center Nurse 2 #18 Left medial LE cluster -Time 09:50 09:53 10:15 -Correct Patient Yes Yes Yes -Correct Side, Site, Position Yes Yes Yes -Correct Procedure Yes Yes Yes -Procedure Performed Yes Yes Yes -Type of Procedure Debridement Debridement Debridement -Clinical Debridement Subcutaneous Subcutaneous Subcutaneous -Tissue Removed Subcutaneous Subcutaneous Subcutaneous -Post Debridement (cm) - Length 9.3 9.3 9.0 -Post Debridement (cm) - Width 17.0 16 16.5 -Post Debridement (cm) - Depth 0.1 0.1 0.1 -Total Square (Post) (cm) 158.10 148.8 148.50 -Area of Debridement (cm) - Length 9.3 9.3 9.0 -Area of Debridement (cm) - Width 17.0 16 16.5 -Total Square (Area) (cm) 158.10 148.8 148.50 -Tunneling No No No -Undermining/Tunneling No No No -Circular Undermining No No No -Wound/Ulcer Outcome Not Healed Not Healed Not Healed -Ulcer Cleansing Rinsed/ Rinsed/ Irrigated with Irrigated with Saline Saline -Foul Odor after Cleansing No No -Bioengineered Tissue No No -Bleeding Controlled with Pressure Pressure Pressure -Treatment Response Procedure Procedure Procedure Tolerated Well Tolerated Well Tolerated Well -Debridement - Subq, 1st 20sq cm Yes Yes Yes -Debridement, SubQ, ea addt'l 20sq cm 7 7 7 or part thereof Pain Scale: 0-10 Numeric Is Patient Pain Free? Yes Yes Yes WC - Nurse 3 - General Ulcer D/C NN Start: 02/10/24 09:33 Freq: Status: Active Protocol: Activity Type Activity Date Activity User E-sign Co-sign Detail Recorded Client Recorded Date Recorded By Document 02/10/24 10:24 RB Desktop 02/10/24 10:25 RB Document 02/17/24 10:14 DL Desktop 02/17/24 10:16 DL 02/10/24 02/17/24 10:24 10:14 Wound Care Center Nurse 3 #18 Left medial LE cluster -Ulcer Cleansing Soap and Water -Foul Odor after Cleansing No -Primary Dressing Applied Aquacel Extra, Aquacel Extra, Fibracol Plus Fibracol Plus 4x4 4x4 -Primary Dressing Covered/Secured with Dry Gauze & Dry Gauze & Roll Gauze, Roll Gauze, Secured with Secured with Tape Tape -Aquacel Extra 1 1 -Fibracol Plus 4x4 1 1 -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) dressing applied per Yasmin Vasquez today in clinic . wili -Tubular Bandage Single Layer -Size of Tubigrip Used Size F -Size F ($) 1 Right -Tubular Bandage Single Layer -Size of Tubigrip Used Size F -Size F ($) 1 -Other HCS BRAND Left -Tubular Bandage Single Layer -Size of Tubigrip Used Size F -Size F ($) 1 -Other HCS BRAND Treatment Response Procedure Tolerated Well Pain Scale: 0-10 Numeric Is Patient Pain Free? Yes Yes WC - Visit Discharge Discharge Condition Stable Stable Ambulatory Status Ambulatory, Ambulatory Walker Transportation Private Auto Private Auto Medication Reconcilliation completed & No provided to patient/care provider Clinical Summary of Care Provided Yes Facility Type Home Health Orders Sent Yes Assessment/Plan Assessment/Plan (1) Lymphedema: CODE(S): I89.0 - Lymphedema, not elsewhere classified (2) Hypertension: CODE(S): I10 - Essential (primary) hypertension QUALIFIERS: Hypertension type: primary hypertension Qualified Code(s): I10 - Essential (primary) hypertension (3) Hyperlipidemia: CODE(S): E78.5 - Hyperlipidemia, unspecified QUALIFIERS: Hyperlipidemia type: mixed hyperlipidemia Qualified Code(s): E78.2 - Mixed hyperlipidemia (4) History of DVT (deep vein thrombosis): CODE(S): Z86.718 - Personal history of other venous thrombosis and embolism (5) Venous insufficiency (chronic) (peripheral): CODE(S): I87.2 - Venous insufficiency (chronic) (peripheral) (6) Venous ulcer of left lower extremity with varicose veins: CODE(S): I83.029 - Varicose veins of left lower extremity with ulcer of unspecified site (7) Edema: CODE(S): R60.9 - Edema, unspecified QUALIFIERS: Edema type: unspecified Qualified Code(s): R60.9 - Edema, unspecified PLAN: Plan Evaluation and debridement of left medial LE ulcer performed today in clinic as annotated above. At home wound-care instructions: Will continue to dress his ulcers with Fibracol daily and cover with Aquacel Extra and gauze. If his ulcers are dry then would decrease frequency of changes to every other day. Continue compression with F tubigrips b/l. Due to the delayed progress in wound healing of his venous ulcers, we discussed applying for advanced wound healing product for healing his ulcer. Due to the size of his ulcer, Theraskin application approval is being requested from his insurance as it is medically necessary for salvaging his limb and healing his ulcer. He underwent 2 applications of Theraskin to this ulcer. Since application of Theraskin he has had much improvement in epitheliazation of his ulcer even though the overall size is not significantly changed there is progress. Off-loading: The patient was instructed to avoid pressure and friction on the affected areas. Reposition every 2 hours at minimum. Avoid prolonged standing and/or dangling of legs. When seated, feet should be elevated at chest level. Frequent ambulation is encouraged. Encouraged lymphedema pump use. Diet: Patient encouraged to increase protein intake while taking caution to avoid high carbohydrate and/or sugar intake. Labs/cultures/imaging: Wound culture showed 1+ Pseudomonas that is sensitive to Levofloxacin and completed treatment on 08/16/23. Follow-up: Return in 1 week for wound care follow up and have secondary dressing changed by home health Tuesday and Tuesday. Return sooner or report to the emergency room should symptoms worsen, or new symptoms arise. Note: [employer] speech recognition business development officer software was used to create portions of this document. Sound-alike and misspelled words, as well as other business development officer errors may be contained in the documentation.
[2024-03-02 09:53] VITALS: BP 104/61; PULSE 67; RESP 18; TEMP 35.5
--- NOTE | 2024-03-02 14:02 | PN.PCM_ITS ---
History of Present Illness Date of Service: 02/24/24 Chief Complaint: venous ulcers of left lower extremity History of Wound: Mauricio is a 68 yo gentleman who is here today for evaluation of ulcers to to his bilateral lower legs. He has been treated multiple times in the past at the wound healing center for similar ulcers. The left LE ulcer started after he developed increased swelling and blisters of left leg in October and the right leg started sometime at the end of October. He was seen at PCP's office a culture was taken and it was resistant to several antibiotics. He was treated initially with Levaquin but had myalgias and then was treated with doxycycline which he finished 2 days ago. He denies improvement and is having swelling to his left calf and thigh. He has been having swelling to both lower extremities for many years and it has worsened over the last few months. He has not been compliant with compression. He has had increased pain especially in the left leg. He has clear yellow drainage and redness without odor or warmth. He is anti- coagulated on coumadin. He has been washing with Dial soap and witch ifrah. He had been using Collagen at times and using Calcium Alginate and covering with ABD pads during October. He was treated with 3M compression and Aquacel Ag. He was referred to the wound center for ongoing treatment. His ulcers have moderate to heavy drainage. He was recently hospitalized for cellulitis and edema for the last 10 days. He was in the hospital from 11/30/22 until 12/09/22 for treatment of cellulitis and edema. He underwent treatment with Vancomycin and IV lasix and compression. Discharged on 12/09/22. He returned to his assisted living apartment on Tuesday12/21/22. Subjective Subjective Mauricio is a 68-year-old male with longstanding history of chronic venous ulceration to the left lower extremity. He has been using Fibracol and tolerating it ok. There has been improvement in his ulcer overall. He reports significantly decreased drainage. He is using ABD and size F Tubigrips for compression. 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 He continues to use his lymphedema pumps but continues to have pain with use of these pumps. Objective Data Objective Data Vital Signs: Vital Signs Temp Pulse Resp BP O2 Del Method 96 F L 67 18 104/61 Room Air 03/02/24 09:53 03/02/24 09:53 03/02/24 09:53 03/02/24 09:53 02/24/24 09:27 Oxygen Delivery Method Room Air Physical Exam Const alert, oriented x3 and no apparent distress General Appearance: cooperative and comfortable HEENT normocephalic and head/scalp atraumatic Lymph Lymphatic: lymphedema moderate Resp normal respiratory effort Effort and Inspection: able to speak in complete sentences Cardio regular rate and regular rhythm Extremity General Extremity: edema bilateral lower extremity Details: severe Skin Wounds: wounds noted Wound Narrative: as in clinical panel Psych mental status grossly normal, thought process normal, cooperative and affect normal Debridement Note Debridement Note Wound debrided: left medial LE ulcer Laterality: Left Type of Debridement: Excisional debridement Anesthesia Used: 4% Lidocaine Solution and Cetacaine Depth: Down to and including healthy tissue and in the subcutaneous layer Percentage of wound debrided: 100 Instrument Used: - (Misonix ultrasonic debridement) Tissue Removed: Yellow slough, devitalized tissue Severity: Fat Layer Exposed Amount of bleeding with debridement: Mild Bleeding Controlled with: Compression and gauze Patient tolerated procedure: Patient tolerated procedure well Post-Debridement Measurements and Additional Note: Post-Debridement Measurements/Treatment - Nurse 1 - General Ulcer Assessment Start: 02/10/24 09:33 Freq: Status: Active Protocol: ONDINA Activity Type Activity Date Activity User E-sign Co-sign Detail Recorded Client Recorded Date Recorded By Document 02/10/24 09:33 KW Desktop 02/10/24 09:37 KW Document 02/17/24 09:42 RB Desktop 02/17/24 09:46 RB Document 02/24/24 09:27 wound center 02/24/24 09:36 KW Document 03/02/24 09:53 [facility] wound center 03/02/24 09:55 RB 02/10/24 02/17/24 02/24/24 09:33 09:42 09:27 - Today's Visit Information Type of service Follow-up Visit Follow-up Visit Follow-up Visit (Physician/MULTIPLE DRUM SANDER HELPER (Physician/MULTIPLE DRUM SANDER HELPER (Physician/MULTIPLE DRUM SANDER HELPER ) ) ) Arrival Mode Ambulatory, Ambulatory, Ambulatory, Walker Walker Walker Transfer Assistance None Patient Identification Verified (Name & Yes Yes Yes ) Patient Requires Transmission-Based No Precautions Vital Signs Temperature (97.8 F-99.1 F) 96.8 F L 95.8 F L 95.9 F L Temperature Source Temporal Temporal Temporal Pulse Rate (60-100) 65 73 Pulse Location Monitor Monitor Monitor Respiratory Rate (12-18) 18 18 18 Respiratory rate source Observation Observation Observation Oxygen Delivery Method Room Air Room Air Blood Pressure (90/60-120/80) 99/53 L 121/55 H Blood Pressure Mean (mm Hg) 68 77 Source Monitor Monitor Monitor Position Semi-Fowlers Semi-Fowlers Semi-Fowlers Blood Pressure Location Right Arm Left Arm Left Arm History Since Last Visit- (Skip if this is Patient's initial visit) Have you changed medications since your No No No last visit? Any new allergies or adverse reactions No No No Had a fall/change in ADL's that may No No No increase risk of falls Signs or symptoms of abuse and/or No No No neglect since last visit Have you been in the hospital since your No No No last visit? Has dressing in place as prescribed Yes Yes Yes Has compression in place as prescribed Yes No Yes Has offloadiing in place as prescribed N/A No N/A Experienced any changes in pain level or No No No management Left Footwear Regular Shoe Regular Shoe Right Footwear Regular Shoe Regular Shoe Pain Scale: 0-10 Numeric Is Patient Pain Free? Yes Yes Yes 03/02/24 09:53 WC - Today's Visit Information Type of service Follow-up Visit (Physician/MULTIPLE DRUM SANDER HELPER ) Arrival Mode Ambulatory Transfer Assistance None Patient Identification Verified (Name & Yes ) Patient Requires Transmission-Based No Precautions Vital Signs Temperature (97.8 F-99.1 F) 96 F L Temperature Source Temporal Pulse Rate (60-100) 67 Pulse Location Monitor Respiratory Rate (12-18) 18 Respiratory rate source Observation Oxygen Delivery Method Blood Pressure (90/60-120/80) 104/61 Blood Pressure Mean (mm Hg) 75 Source Monitor Position Semi-Fowlers Blood Pressure Location Left Arm History Since Last Visit- (Skip if this is Patient's initial visit) Have you changed medications since your No last visit? Any new allergies or adverse reactions No Had a fall/change in ADL's that may No increase risk of falls Signs or symptoms of abuse and/or No neglect since last visit Have you been in the hospital since your No last visit? Has dressing in place as prescribed Yes Has compression in place as prescribed Yes Has offloadiing in place as prescribed No Experienced any changes in pain level or No management Left Footwear Right Footwear Pain Scale: 0-10 Numeric Is Patient Pain Free? Yes - Nurse 1 - General Ulcer Measurement Start: 02/10/24 09:33 Freq: Status: Active Protocol: Activity Type Activity Date Activity User E-sign Co-sign Detail Recorded Client Recorded Date Recorded By Document 02/10/24 09:33 KW Desktop 02/10/24 09:37 KW Document 02/17/24 09:42 RB Desktop 02/17/24 09:46 RB Document 02/24/24 09:27 KW wound center 02/24/24 09:36 KW Document 03/02/24 09:53 RB [facility] wound center 03/02/24 09:55 RB 02/10/24 02/17/24 02/24/24 09:33 09:42 09:27 Wound Center Nurse 1 #18 Left medial LE cluster -Combined with other wound No -Current Size (cm) - Length 15 9 -Current Size (cm) - Width 8.6 18.5 -Current Size (cm) - Depth 0.2 0.1 -Total Square Cm 129.0 166.5 -Tunneling No -Undermining/Tunneling No -Circular Undermining No -Exudate Amt Medium Medium Small -Exudate Type Serosanguineous Serosanguineous Serosanguineous -Wound Margin Distinct, Distinct, Distinct, Outline Outline Outline Attached Attached Attached -Granulation Amt Large (67-100%) Medium (34-66%) Large (67-100%) -Granulation Quality [place] -Slough/Fibrin Yes -Necrosis Amt Medium (34-66%) Small (1-33%) -Necrotic Tissue Type Adherent Slough Adherent Slough -Structure Exposed N/A -Texture (Marie-wound Skin Appearance) Assessed Assessed Assessed -Moisture (Marie-wound Skin Appearance) Assessed Assessed Assessed -Color (Marie-wound Skin Appearance) Assessed Assessed Assessed, Erythema -Temperature (Marie-wound Skin No Abnormality No Abnormality No Abnormality Appearance) (Pt Warm) (Pt Warm) (Pt Warm) -Tenderness on Palpation (Marie-wound No No No Skin Appearance) -Ulcer Cleansing Soap and Water Wound Cleanser Soap and Water -Foul Odor after Cleansing No No No -Anesthetic Used 5% Lidocaine 5% Lidocaine 4% Lidocaine Gel Gel Solution,5% Lidocaine Gel Lower Limb Edema Present Yes Left Calf (cm) 43.5 42 Left Ankle (cm) 29.7 28.5 03/02/24 09:53 Wound Center Nurse 1 #18 Left medial LE cluster -Combined with other wound No -Current Size (cm) - Length 9 -Current Size (cm) - Width 18 -Current Size (cm) - Depth 0.1 -Total Square Cm 162 -Tunneling No -Undermining/Tunneling No -Circular Undermining No -Exudate Amt Large -Exudate Type Serosanguineous -Wound Margin Distinct, Outline Attached -Granulation Amt Medium (34-66%) -Granulation Quality [place] -Slough/Fibrin Yes -Necrosis Amt Medium (34-66%) -Necrotic Tissue Type Adherent Slough -Structure Exposed None/Limited to Skin Breakdown -Texture (Marie-wound Skin Appearance) Assessed, Friable -Moisture (Marie-wound Skin Appearance) Maceration -Color (Marie-wound Skin Appearance) Assessed -Temperature (Marie-wound Skin No Abnormality Appearance) (Pt Warm) -Tenderness on Palpation (Marie-wound No Skin Appearance) -Ulcer Cleansing Wound Cleanser -Foul Odor after Cleansing No -Anesthetic Used 5% Lidocaine Gel Lower Limb Edema Present Yes Left Calf (cm) 42.5 Left Ankle (cm) 29 - Nurse 2 - General Ulcer CM Notes Start: 02/10/24 09:33 Freq: Status: Active Protocol: Activity Type Activity Date Activity User E-sign Co-sign Detail Recorded Client Recorded Date Recorded By Document 02/10/24 09:50 Desktop 02/10/24 10:14 Document 02/17/24 09:52 Desktop 02/17/24 10:05 Document 02/24/24 10:11 wound center 02/24/24 10:25 Document 03/02/24 10:05 [facility] 03/02/24 10:26 02/10/24 02/17/24 02/24/24 09:50 09:52 10:11 Wound Center Nurse 2 #18 Left medial LE cluster -Time 09:50 09:53 10:15 -Correct Patient Yes Yes Yes -Correct Side, Site, Position Yes Yes Yes -Correct Procedure Yes Yes Yes -Procedure Performed Yes Yes Yes -Type of Procedure Debridement Debridement Debridement -Clinical Debridement Subcutaneous Subcutaneous Subcutaneous -Tissue Removed Subcutaneous Subcutaneous Subcutaneous -Post Debridement (cm) - Length 9.3 9.3 9.0 -Post Debridement (cm) - Width 17.0 16 16.5 -Post Debridement (cm) - Depth 0.1 0.1 0.1 -Total Square (Post) (cm) 158.10 148.8 148.50 -Area of Debridement (cm) - Length 9.3 9.3 9.0 -Area of Debridement (cm) - Width 17.0 16 16.5 -Total Square (Area) (cm) 158.10 148.8 148.50 -Tunneling No No No -Undermining/Tunneling No No No -Circular Undermining No No No -Wound/Ulcer Outcome Not Healed Not Healed Not Healed -Ulcer Cleansing Rinsed/ Rinsed/ Irrigated with Irrigated with Saline Saline -Foul Odor after Cleansing No No -Bioengineered Tissue No No -Bleeding Controlled with Pressure Pressure Pressure -Treatment Response Procedure Procedure Procedure Tolerated Well Tolerated Well Tolerated Well -Debridement - Subq, 1st 20sq cm Yes Yes Yes -Debridement, SubQ, ea addt'l 20sq cm 7 7 7 or part thereof Pain Scale: 0-10 Numeric Is Patient Pain Free? Yes Yes Yes 03/02/24 10:05 Wound Center Nurse 2 #18 Left medial LE cluster -Time 10:06 -Correct Patient Yes -Correct Side, Site, Position Yes -Correct Procedure Yes -Procedure Performed Yes -Type of Procedure Debridement -Clinical Debridement Subcutaneous -Tissue Removed Subcutaneous -Post Debridement (cm) - Length 8.3 -Post Debridement (cm) - Width 16.7 -Post Debridement (cm) - Depth 0.1 -Total Square (Post) (cm) 138.61 -Area of Debridement (cm) - Length 8.3 -Area of Debridement (cm) - Width 16.7 -Total Square (Area) (cm) 138.61 -Tunneling No -Undermining/Tunneling No -Circular Undermining No -Wound/Ulcer Outcome Not Healed -Ulcer Cleansing Rinsed/ Irrigated with Saline -Foul Odor after Cleansing No -Bioengineered Tissue No -Bleeding Controlled with Pressure -Treatment Response Procedure Tolerated Well -Debridement - Subq, 1st 20sq cm Yes -Debridement, SubQ, ea addt'l 20sq cm 6 or part thereof Pain Scale: 0-10 Numeric Is Patient Pain Free? Yes - Nurse 3 - General Ulcer D/C NN Start: 02/10/24 09:33 Freq: Status: Active Protocol: Activity Type Activity Date Activity User E-sign Co-sign Detail Recorded Client Recorded Date Recorded By Document 02/10/24 10:24 RB Desktop 02/10/24 10:25 RB Document 02/17/24 10:14 DL Desktop 02/17/24 10:16 DL Document 02/24/24 10:50 RB wound center 02/24/24 10:52 RB Document 03/02/24 13:39 RB [facility] wound center 03/02/24 13:41 RB 02/10/24 02/17/24 02/24/24 10:24 10:14 10:50 Wound Care Center Nurse 3 #18 Left medial LE cluster -Ulcer Cleansing Soap and Water Rinsed/ Irrigated with Saline -Foul Odor after Cleansing No -Primary Dressing Applied Aquacel Extra, Aquacel Extra, Aquacel Extra, Fibracol Plus Fibracol Plus Fibracol Plus 4x4 4x4 4x4 -Other Dressing abd -Primary Dressing Covered/Secured with Dry Gauze & Dry Gauze & Dry Gauze & Roll Gauze, Roll Gauze, Roll Gauze, Secured with Secured with Secured with Tape Tape Tape -Aquacel Extra 1 1 1 -Fibracol Plus 4x4 1 1 1 -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) dressing applied per Yasmin Vasquez today in clinic . wili -Tubular Bandage Single Layer -Size of Tubigrip Used Size F -Size F ($) 1 Right -Tubular Bandage Single Layer -Size of Tubigrip Used Size F -Size F ($) 1 -Other HCS BRAND Left -Tubular Bandage Single Layer Single Layer -Size of Tubigrip Used Size F Size F -Size F ($) 1 1 -Other HCS BRAND Treatment Response Procedure Procedure Tolerated Well Tolerated Well Pain Scale: 0-10 Numeric Is Patient Pain Free? Yes Yes No LLE -Description Aching -Intensity 3 -Duration (hours) Chronic -Pain Behavior Guarding -Pain Aggravating Factors Exercise/ Activity -Alleviating Factors/Interventions Medication -Effectiveness of Alleviating Factor/ Moderately Intervention effective WC - Visit Discharge Discharge Condition Stable Stable Stable Ambulatory Status Ambulatory, Ambulatory Ambulatory, Walker Walker Transportation Private Auto Private Auto [facility] transportation Medication Reconcilliation completed & No No provided to patient/care provider Clinical Summary of Care Provided Yes Yes Facility Type Home Health Orders Sent Yes 03/02/24 13:39 Wound Care Center Nurse 3 #18 Left medial LE cluster -Ulcer Cleansing Rinsed/ Irrigated with Saline -Foul Odor after Cleansing -Primary Dressing Applied Aquacel Extra, Fibracol Plus 4x4 -Other Dressing abd -Primary Dressing Covered/Secured with Dry Gauze & Roll Gauze, Secured with Tape -Aquacel Extra 1 -Fibracol Plus 4x4 2 -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) wili -Tubular Bandage -Size of Tubigrip Used -Size F ($) Right -Tubular Bandage Single Layer -Size of Tubigrip Used Size F -Size F ($) 1 -Other Left -Tubular Bandage Single Layer -Size of Tubigrip Used Size F -Size F ($) 1 -Other Treatment Response Procedure Tolerated Well Pain Scale: 0-10 Numeric Is Patient Pain Free? No LLE -Description Aching -Intensity 5 -Duration (hours) -Pain Behavior Irritability -Pain Aggravating Factors Debridement -Alleviating Factors/Interventions Medication -Effectiveness of Alleviating Factor/ Moderately Intervention effective WC - Visit Discharge Discharge Condition Stable Ambulatory Status Ambulatory, Walker Transportation Private Auto Medication Reconcilliation completed & No provided to patient/care provider Clinical Summary of Care Provided Yes Facility Type Orders Sent Assessment/Plan Assessment/Plan (1) Lymphedema: CODE(S): I89.0 - Lymphedema, not elsewhere classified (2) Hypertension: CODE(S): I10 - Essential (primary) hypertension QUALIFIERS: Hypertension type: primary hypertension Qualified Code(s): I10 - Essential (primary) hypertension (3) Hyperlipidemia: CODE(S): E78.5 - Hyperlipidemia, unspecified QUALIFIERS: Hyperlipidemia type: mixed hyperlipidemia Qualified Code(s): E78.2 - Mixed hyperlipidemia (4) History of DVT (deep vein thrombosis): CODE(S): Z86.718 - Personal history of other venous thrombosis and embolism (5) Venous insufficiency (chronic) (peripheral): CODE(S): I87.2 - Venous insufficiency (chronic) (peripheral) (6) Venous ulcer of left lower extremity with varicose veins: CODE(S): I83.029 - Varicose veins of left lower extremity with ulcer of unspecified site (7) Edema: CODE(S): R60.9 - Edema, unspecified QUALIFIERS: Edema type: unspecified Qualified Code(s): R60.9 - Edema, unspecified PLAN: Plan Evaluation and debridement of left medial LE ulcer performed today in clinic as annotated above. At home wound-care instructions: Will continue to dress his ulcers with Fibracol daily and cover with Aquacel Extra and gauze. If his ulcers are dry then would decrease frequency of changes to every other day. Continue compression with F tubigrips b/l. Due to the delayed progress in wound healing of his venous ulcers, we discussed applying for advanced wound healing product for healing his ulcer. Due to the size of his ulcer, Theraskin application approval is being requested from his insurance as it is medically necessary for salvaging his limb and healing his ulcer. He underwent 2 applications of Theraskin to this ulcer. Since application of Theraskin he has had much improvement in epitheliazation of his ulcer even though the overall size is not significantly changed there is progress. Off-loading: The patient was instructed to avoid pressure and friction on the affected areas. Reposition every 2 hours at minimum. Avoid prolonged standing and/or dangling of legs. When seated, feet should be elevated at chest level. Frequent ambulation is encouraged. Encouraged lymphedema pump use. Diet: Patient encouraged to increase protein intake while taking caution to avoid high carbohydrate and/or sugar intake. Labs/cultures/imaging: Wound culture showed 1+ Pseudomonas that is sensitive to Levofloxacin and completed treatment on 08/16/23. Follow-up: Return in 2 weeks for wound care follow up and have secondary dressing changed by home health Tuesday and Tuesday. Return sooner or report to the emergency room should symptoms worsen, or new symptoms arise. Note: [employer] speech recognition branch operations specialist software was used to create portions of this document. Sound-alike and misspelled words, as well as other branch operations specialist errors may be contained in the documentation.
== END 2024-03-09 23:59 | disposition home or self-care (01) ==
LOC: WC 09:30
PROVIDERS: PCP Family Medicine; Referring Provider Family Medicine; Visit Provider Family Medicine
DX: I83.029 Varicose veins of left lower extremity with ulcer of unspecified site (principal); L97.922 Non-pressure chronic ulcer of unspecified part of left lower leg with fat layer exposed; M79.605 Pain in left leg; M79.10 Myalgia, unspecified site; I89.0 Lymphedema, not elsewhere classified; I10 Essential (primary) hypertension; I87.2 Venous insufficiency (chronic) (peripheral); Z86.718 Personal history of other venous thrombosis and embolism; R60.9 Edema, unspecified; E78.2 Mixed hyperlipidemia
CPT/HCPCS: 11042; 11045

== ENCOUNTER 2024-03-08 12:26 | Outpatient (RCR) | payer MEDICARE, OTHER, SELFPAY ==
[2024-03-08 13:12] LABS: Absolute Lymphocyte Count 1.51 X10^3/uL (0.83-4.51); Absolute Neutrophil Count 2.7 X10^3/uL (2.0-7.7); Basophil# 0.04 X10^3/uL; Basophil% 0.8 % (0-1); Eosinophil# 0.09 X10^3/uL; Eosinophils% 1.9 % (0-5); Hematocrit 45.4 % (40-54); Hemoglobin 14.3 g/dL (13.0-16.5); Lymphocyte # 1.51 X10^3/ul (0.83-4.51); Lymphocyte % 31.7 % (19-41); Mean Corp Hgb Conc 31.5 g/dL (32-36); Mean Corpuscular Hgb 32.3 pg (27.0-32.0); Mean Corpuscular Volume 102.5 fL (80-94); Mean Platelet Vol. 9.8 fl (6.2-12.0); Monocyte# 0.45 X10^3/uL; Monocyte% 9.5 % (0-10); NRBC Flagged by Analyzer 0 % (0-5); Neutrophil # 2.66 X10^3/uL (2.7-7.7); Neutrophil % 55.9 % (47-70); Platelet Count 250 K/mm3 (150-450); RBC Distribution Width CV 14.3 % (11.6-14.6); RBC Distribution Width SD 53.6 fl (35.1-43.9); Red Blood Count 4.43 M/mm3 (4.6-6.2); White Blood Count 4.8 K/mm3 (4.4-11.0)
[2024-03-08 13:54] LABS: Vitamin B12 388 pg/mL (211-911); Vitamin D,25 Hydroxy 32.7 ng/mL
[2024-03-08 14:00] LABS: Hemoglobin A1c 5.4 % (3.8-5.6)
[2024-03-08 14:03] LABS: ALB/GLOB Ratio 0.9 RATIO (0.9-2.4); AST(SGOT) 13 U/L (15-37); Alanine Aminotransfer ALT/SGPT 19 U/L (16-61); Albumin, Serum 3.5 g/dL (3.2-5.0); Alkaline Phosphatase 99 U/L (45-117); Anion Gap 6 (5-15); BUN 18 mg/dL (7-18); BUN/Creat Ratio 21.5 RATIO (10-20); Calcium,Total 8.9 mg/dL (8.5-10.1); Chloride 103 mmol/L (98-107); Creatinine, Serum 0.84 mg/dL (0.70-1.30); EST Glomerular Filtration Rate 97 mL/min (>60); Est Glom Filt Rate - Afr Amer 118 mL/min (>60); Free T3 2.4 pg/mL (2.18-3.98); Globulin 3.8 g/dL (2.2-4.2); Glucose 77 mg/dL (74-106); PSA,Total - Annual Screen 9.51 ng/mL (0.00-4.00); Potassium 4.1 mmol/L (3.5-5.1); Protein, Total 7.3 g/dL (6.4-8.2); Sodium Level 139 mmol/L (136-145); T4 Free Direct 0.76 ng/dL (0.76-1.46)
== END 2024-03-09 23:59 ==
LOC: HHLAB 12:26
PROVIDERS: PCP Family Medicine; Referring Provider Family Medicine; Visit Provider Family Medicine
DX: I10 Essential (primary) hypertension (principal); Z12.5 Encounter for screening for malignant neoplasm of prostate; R73.01 Impaired fasting glucose; E53.8 Deficiency of other specified B group vitamins; E55.9 Vitamin D deficiency, unspecified; Z51.81 Encounter for therapeutic drug level monitoring
CPT/HCPCS: 80053; 82306; 82607; 83036; 84153; 84439; 84443; 84481; 85025; G0103

== ENCOUNTER 2024-04-06 09:45 | Outpatient (RCR) | payer MEDICARE, OTHER, SELFPAY ==
[2024-03-10 00:37] VITALS: BP 114/57; PULSE 73; RESP 18; TEMP 36.4
[2024-03-16 09:53] VITALS: BP 91/49; PULSE 63; RESP 18; TEMP 36
--- NOTE | 2024-03-16 14:03 | PN.PCM_ITS ---
History of Present Illness Date of Service: 03/16/24 Chief Complaint: venous ulcers of left lower extremity History of Wound: Mauricio is a 68 yo gentleman who is here today for evaluation of ulcers to to his bilateral lower legs. He has been treated multiple times in the past at the wound healing center for similar ulcers. The left LE ulcer started after he developed increased swelling and blisters of left leg in October and the right leg started sometime at the end of October. He was seen at PCP's office a culture was taken and it was resistant to several antibiotics. He was treated initially with Levaquin but had myalgias and then was treated with doxycycline which he finished 2 days ago. He denies improvement and is having swelling to his left calf and thigh. He has been having swelling to both lower extremities for many years and it has worsened over the last few months. He has not been compliant with compression. He has had increased pain especially in the left leg. He has clear yellow drainage and redness without odor or warmth. He is anti- coagulated on coumadin. He has been washing with Dial soap and witch ifrah. He had been using Collagen at times and using Calcium Alginate and covering with ABD pads during October. He was treated with 3M compression and Aquacel Ag. He was referred to the wound center for ongoing treatment. His ulcers have moderate to heavy drainage. He was recently hospitalized for cellulitis and edema for the last 10 days. He was in the hospital from 11/30/22 until 12/09/22 for treatment of cellulitis and edema. He underwent treatment with Vancomycin and IV lasix and compression. Discharged on 12/09/22. He returned to his assisted living apartment on Tuesday12/21/22. Subjective Subjective Mauricio is a 68-year-old male with longstanding history of chronic venous ulceration to the left lower extremity. He has been using Fibracol and tolerating it ok. There has been improvement in his ulcer overall. He reports significantly decreased drainage. He is using ABD and size F Tubigrips for compression. 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 He continues to use his lymphedema pumps but continues to have pain with use of these pumps. Objective Data Objective Data Vital Signs: Vital Signs Temp Pulse Resp BP 96.8 F L 63 18 91/49 L 03/16/24 09:53 03/16/24 09:53 03/16/24 09:53 03/16/24 09:53 Physical Exam Const alert, oriented x3 and no apparent distress General Appearance: cooperative and comfortable HEENT normocephalic and head/scalp atraumatic Lymph Lymphatic: lymphedema moderate Resp normal respiratory effort Effort and Inspection: able to speak in complete sentences Cardio regular rate and regular rhythm Extremity General Extremity: edema bilateral lower extremity Details: severe Skin Wounds: wounds noted Wound Narrative: as in clinical panel Psych mental status grossly normal, thought process normal, cooperative and affect normal Debridement Note Debridement Note Wound debrided: left medial LE ulcer Laterality: Left Type of Debridement: Excisional debridement Anesthesia Used: 4% Lidocaine Solution and Cetacaine Depth: Down to and including healthy tissue and in the subcutaneous layer Percentage of wound debrided: 100 Instrument Used: - (Misonix ultrasonic debridement) Tissue Removed: Yellow slough, devitalized tissue Severity: Fat Layer Exposed Amount of bleeding with debridement: Mild Bleeding Controlled with: Compression and gauze Patient tolerated procedure: Patient tolerated procedure well Post-Debridement Measurements and Additional Note: Post-Debridement Measurements/Treatment - Nurse 1 - General Ulcer Assessment Start: 03/16/24 09:53 Freq: Status: Active Protocol: ONDINA Activity Type Activity Date Activity User E-sign Co-sign Detail Recorded Client Recorded Date Recorded By Document 03/16/24 09:53 wound center 03/16/24 09:55 03/16/24 09:53 - Today's Visit Information Type of service Follow-up Visit (Physician/OPHTHALMOLOGIST RETINA SPECIALIST ) Arrival Mode Ambulatory, Walker Transfer Assistance None Patient Identification Verified (Name & Yes ) Patient Requires Transmission-Based No Precautions Vital Signs Temperature (97.8 F-99.1 F) 96.8 F L Temperature Source Temporal Pulse Rate (60-100) 63 Pulse Location Monitor Respiratory Rate (12-18) 18 Respiratory rate source Observation Blood Pressure (90/60-120/80) 91/49 L Blood Pressure Mean (mm Hg) 63 Source Monitor Position Semi-Fowlers Blood Pressure Location Left Arm History Since Last Visit- (Skip if this is Patient's initial visit) Have you changed medications since your No last visit? Any new allergies or adverse reactions No Had a fall/change in ADL's that may No increase risk of falls Signs or symptoms of abuse and/or No neglect since last visit Have you been in the hospital since your No last visit? Has dressing in place as prescribed Yes Has compression in place as prescribed Yes Has offloadiing in place as prescribed No Experienced any changes in pain level or No management Pain Scale: 0-10 Numeric Is Patient Pain Free? Yes - Nurse 1 - General Ulcer Measurement Start: 03/16/24 09:53 Freq: Status: Active Protocol: Activity Type Activity Date Activity User E-sign Co-sign Detail Recorded Client Recorded Date Recorded By Document 03/16/24 09:53 RB wound center 03/16/24 09:55 RB 03/16/24 09:53 Wound Center Nurse 1 #18 Left medial LE cluster -Combined with other wound No -Current Size (cm) - Length 8 -Current Size (cm) - Width 18 -Current Size (cm) - Depth 0.1 -Total Square Cm 144 -Tunneling No -Undermining/Tunneling No -Circular Undermining No -Exudate Amt Large -Exudate Type Serosanguineous -Wound Margin Distinct, Outline Attached -Granulation Amt Medium (34-66%) -Granulation Quality [place] -Slough/Fibrin Yes -Necrosis Amt Medium (34-66%) -Necrotic Tissue Type Adherent Slough -Structure Exposed N/A -Texture (Marie-wound Skin Appearance) Assessed, Scarring -Moisture (Marie-wound Skin Appearance) Assessed -Color (Marie-wound Skin Appearance) Assessed -Temperature (Marie-wound Skin No Abnormality Appearance) (Pt Warm) -Tenderness on Palpation (Marie-wound No Skin Appearance) -Ulcer Cleansing Wound Cleanser -Foul Odor after Cleansing No -Anesthetic Used 5% Lidocaine Gel Lower Limb Edema Present Yes Left Calf (cm) 43 Left Ankle (cm) 29 - Nurse 2 - General Ulcer CM Notes Start: 03/16/24 09:53 Freq: Status: Active Protocol: Activity Type Activity Date Activity User E-sign Co-sign Detail Recorded Client Recorded Date Recorded By Document 03/16/24 09:58 GM 03/16/24 10:15 GM 03/16/24 09:58 Wound Center Nurse 2 #18 Left medial LE cluster -Time 09:59 -Correct Patient Yes -Correct Side, Site, Position Yes -Correct Procedure Yes -Procedure Performed Yes -Type of Procedure Debridement -Clinical Debridement Subcutaneous -Tissue Removed Subcutaneous -Post Debridement (cm) - Length 8.4 -Post Debridement (cm) - Width 16.5 -Post Debridement (cm) - Depth 0.1 -Total Square (Post) (cm) 138.60 -Area of Debridement (cm) - Length 8.4 -Area of Debridement (cm) - Width 16.5 -Total Square (Area) (cm) 138.60 -Tunneling No -Undermining/Tunneling No -Circular Undermining No -Wound/Ulcer Outcome Not Healed -Ulcer Cleansing Rinsed/ Irrigated with Saline -Foul Odor after Cleansing No -Bioengineered Tissue No -Bleeding Controlled with Pressure -Treatment Response Procedure Tolerated Well -Debridement - Subq, 1st 20sq cm Yes -Debridement, SubQ, ea addt'l 20sq cm 6 or part thereof Pain Scale: 0-10 Numeric Is Patient Pain Free? Yes - Nurse 3 - General Ulcer D/C NN Start: 03/16/24 09:53 Freq: Status: Active Protocol: Activity Type Activity Date Activity User E-sign Co-sign Detail Recorded Client Recorded Date Recorded By Document 03/16/24 11:00 wound center 03/16/24 11:01 03/16/24 11:00 Wound Care Center Nurse 3 #18 Left medial LE cluster -Ulcer Cleansing Rinsed/ Irrigated with Saline -Primary Dressing Applied Aquacel Extra, Fibracol Plus 4x4 -Primary Dressing Covered/Secured with Dry Gauze & Roll Gauze, Secured with Tape -Aquacel Extra 1 -Fibracol Plus 4x4 2 wili -Tubular Bandage Single Layer -Size of Tubigrip Used Size F -Size F ($) 2 Pain Scale: 0-10 Numeric Is Patient Pain Free? No LLE -Description Aching -Intensity 7 -Pain Behavior Withdrawal from Touch -Pain Aggravating Factors Exercise/ Activity -Alleviating Factors/Interventions Medication, Emotional Support Teaching: Wound Center Control Swelling with Leg Elevation -Person Taught Patient -Teaching Method Discussion -Response to teaching Verbalize understanding WC - Visit Discharge Discharge Condition Stable Ambulatory Status Ambulatory, Walker Transportation Private Auto Medication Reconcilliation completed & No provided to patient/care provider Clinical Summary of Care Provided Yes Assessment/Plan Assessment/Plan (1) Lymphedema: CODE(S): I89.0 - Lymphedema, not elsewhere classified (2) Hypertension: CODE(S): I10 - Essential (primary) hypertension QUALIFIERS: Hypertension type: primary hypertension Qualified Code(s): I10 - Essential (primary) hypertension (3) Hyperlipidemia: CODE(S): E78.5 - Hyperlipidemia, unspecified QUALIFIERS: Hyperlipidemia type: mixed hyperlipidemia Qualified Code(s): E78.2 - Mixed hyperlipidemia (4) History of DVT (deep vein thrombosis): CODE(S): Z86.718 - Personal history of other venous thrombosis and e mbolism (5) Venous insufficiency (chronic) (peripheral): CODE(S): I87.2 - Venous insufficiency (chronic) (peripheral) (6) Venous ulcer of left lower extremity with varicose veins: CODE(S): I83.029 - Varicose veins of left lower extremity with ulcer of unspecified site (7) Edema: CODE(S): R60.9 - Edema, unspecified QUALIFIERS: Edema type: unspecified Qualified Code(s): R60.9 - Edema, unspecified PLAN: Plan Evaluation and debridement of left medial LE ulcer performed today in clinic as annotated above. At home wound-care instructions: Will continue to dress his ulcers with Fibracol daily and cover with Aquacel Extra and gauze. If his ulcers are dry then would decrease frequency of changes to every other day. Continue compression with F tubigrips b/l. Due to the delayed progress in wound healing of his venous ulcers, we discussed applying for advanced wound healing product for healing his ulcer. Due to the size of his ulcer, Therask[employer] application approval is being requested from his insurance as it is medically necessary for salvaging his limb and healing his ulcer. He underwent 2 applications of Theraskin to this ulcer. Since application of Theraskin he has had much improvement in epitheliazation of his ulcer even though the overall size is not significantly changed there is progress. Off-loading: The patient was instructed to avoid pressure and friction on the affected areas. Reposition every 2 hours at minimum. Avoid prolonged standing and/or dangling of legs. When seated, feet should be elevated at chest level. Frequent ambulation is encouraged. Encouraged lymphedema pump use. Diet: Patient encouraged to increase protein intake while taking caution to avoid high carbohydrate and/or sugar intake. Labs/cultures/imaging: Wound culture showed 1+ Pseudomonas that is sensitive to Levofloxacin and completed treatment on 08/16/23. Follow-up: Return in 1 week for wound care follow up and have secondary dressing changed by [facility] Tuesday and Tuesday. Return sooner or report to the emergency room should symptoms worsen, or new symptoms arise. Note: [employer] speech recognition product representative software was used to create portions of this document. Sound-alike and misspelled words, as well as other product representative errors may be contained in the documentation.
[2024-03-23 09:57] VITALS: BP 132/74; PULSE 63; RESP 18; TEMP 35.6
--- NOTE | 2024-03-23 13:15 | PN.PCM_ITS ---
History of Present Illness Date of Service: 03/23/24 Chief Complaint: venous ulcers of left lower extremity History of Wound: Mauricio is a 68 yo gentleman who is here today for evaluation of ulcers to to his bilateral lower legs. He has been treated multiple times in the past at the wound healing center for similar ulcers. The left LE ulcer started after he developed increased swelling and blisters of left leg in October and the right leg started sometime at the end of October. He was seen at PCP's office a culture was taken and it was resistant to several antibiotics. He was treated initially with Levaquin but had myalgias and then was treated with doxycycline which he finished 2 days ago. He denies improvement and is having swelling to his left calf and thigh. He has been having swelling to both lower extremities for many years and it has worsened over the last few months. He has not been compliant with compression. He has had increased pain especially in the left leg. He has clear yellow drainage and redness without odor or warmth. He is anti- coagulated on coumadin. He has been washing with Dial soap and witch ifrah. He had been using Collagen at times and using Calcium Alginate and covering with ABD pads during October. He was treated with 3M compression and Aquacel Ag. He was referred to the wound center for ongoing treatment. His ulcers have moderate to heavy drainage. He was recently hospitalized for cellulitis and edema for the last 10 days. He was in the hospital from 11/30/22 until 12/09/22 for treatment of cellulitis and edema. He underwent treatment with Vancomycin and IV lasix and compression. Discharged on 12/09/22. He returned to his assisted living apartment on Tuesday12/21/22. Subjective Subjective Mauricio is a 68-year-old male with longstanding history of chronic venous ulceration to the left lower extremity. He has been using Fibracol and tolerating it ok. There has been improvement in his ulcer overall. He reports continued decreased drainage. He is using KATE and size F Tubigrips for compression. 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 He continues to use his lymphedema pumps but continues to have pain with use of these pumps. Objective Data Objective Data Vital Signs: Vital Signs Temp Pulse Resp BP 96.1 F L 63 18 132/74 H 03/23/24 09:57 03/23/24 09:57 03/23/24 09:57 03/23/24 09:57 Physical Exam Const alert, oriented x3 and no apparent distress General Appearance: cooperative and comfortable HEENT normocephalic and head/scalp atraumatic Lymph Lymphatic: lymphedema moderate Resp normal respiratory effort Effort and Inspection: able to speak in complete sentences Cardio regular rate and regular rhythm Extremity General Extremity: edema bilateral lower extremity Details: severe Skin Wounds: wounds noted Wound Narrative: as in clinical panel Psych mental status grossly normal, thought process normal, cooperative and affect normal Debridement Note Debridement Note Wound debrided: left medial LE ulcer Laterality: Left Type of Debridement: Excisional debridement Anesthesia Used: 4% Lidocaine Solution and 5% Lidocaine Gel Depth: Down to and including healthy tissue and in the subcutaneous layer Percentage of wound debrided: 100 Instrument Used: - (misonix ultrasonic debridement) Tissue Removed: yellow slough, devitalized tissue Severity: Fat Layer Exposed Amount of bleeding with debridement: Mild Bleeding Controlled with: Compression and gauze Patient tolerated procedure: Patient tolerated procedure well Post-Debridement Measurements and Additional Note: Post-Debridement Measurements/Treatment - Nurse 1 - General Ulcer Assessment Start: 03/16/24 09:53 Freq: Status: Active Protocol: [email or web address] Activity Type Activity Date Activity User E-sign Co-sign Detail Recorded Client Recorded Date Recorded By Document 03/16/24 09:53 RB wound center 03/16/24 09:55 RB Document 03/23/24 09:57 RB wound 03/23/24 10:00 RB 03/16/24 03/23/24 09:53 09:57 - Today's Visit Information Type of service Follow-up Visit Follow-up Visit (Physician/[employer] SUPPORT FITTER (Physician/AIRCRAFT LIFE SUPPORT FITTER ) ) Arrival Mode Ambulatory, Ambulatory Walker Transfer Assistance None None Patient Identification Verified (Name & Yes Yes ) Patient Requires Transmission-Based No No Precautions Vital Signs Temperature (97.8 F-99.1 F) 96.8 F L 96.1 F L Temperature Source Temporal Temporal Pulse Rate (60-100) 63 63 Pulse Location Monitor Monitor Respiratory Rate (12-18) 18 18 Respiratory rate source Observation Observation Blood Pressure (90/60-120/80) 91/49 L 132/74 H Blood Pressure Mean (mm Hg) 63 93 Source Monitor Monitor Position Semi-Fowlers Semi-Fowlers Blood Pressure Location Left Arm Left Arm History Since Last Visit- (Skip if this is Patient's initial visit) Have you changed medications since your No No last visit? Any new allergies or adverse reactions No No Had a fall/change in ADL's that may No No increase risk of falls Signs or symptoms of abuse and/or No No neglect since last visit Have you been in the hospital since your No No last visit? Has dressing in place as prescribed Yes Yes Has compression in place as prescribed Yes Yes Has offloadiing in place as prescribed No No Experienced any changes in pain level or No No management Pain Scale: 0-10 Numeric Is Patient Pain Free? Yes Yes WC - Nurse 1 - General Ulcer Measurement Start: 03/16/24 09:53 Freq: Status: Active Protocol: Activity Type Activity Date Activity User E-sign Co-sign Detail Recorded Client Recorded Date Recorded By Document 03/16/24 09:53 RB wound center 03/16/24 09:55 RB Document 03/23/24 09:57 RB wound 03/23/24 10:00 RB 03/16/24 03/23/24 09:53 09:57 Wound Center Nurse 1 #18 Left medial LE cluster -Combined with other wound No No -Current Size (cm) - Length 8 18.5 -Current Size (cm) - Width 18 7 -Current Size (cm) - Depth 0.1 0.1 -Total Square Cm 144 129.5 -Tunneling No No -Undermining/Tunneling No No -Circular Undermining No No -Exudate Amt Large Large -Exudate Type Serosanguineous Serosanguineous -Wound Margin Distinct, Distinct, Outline Outline Attached Attached -Granulation Amt Medium (34-66%) Medium (34-66%) -Granulation Quality [place] -Slough/Fibrin Yes Yes -Necrosis Amt Medium (34-66%) Medium (34-66%) -Necrotic Tissue Type Adherent Slough Adherent Slough -Structure Exposed N/A N/A -Texture (Marie-wound Skin Appearance) Assessed, Assessed, Scarring Scarring -Moisture (Marie-wound Skin Appearance) Assessed Assessed -Color (Marie-wound Skin Appearance) Assessed Assessed -Temperature (Marie-wound Skin No Abnormality No Abnormality Appearance) (Pt Warm) (Pt Warm) -Tenderness on Palpation (Marie-wound No No Skin Appearance) -Ulcer Cleansing Wound Cleanser Wound Cleanser -Foul Odor after Cleansing No No -Anesthetic Used 5% Lidocaine 5% Lidocaine Gel Gel Lower Limb Edema Present Yes Yes Left Calf (cm) 43 43.5 Left Ankle (cm) 29 28 - Nurse 2 - General Ulcer CM Notes Start: 03/16/24 09:53 Freq: Status: Active Protocol: Activity Type Activity Date Activity User E-sign Co-sign Detail Recorded Client Recorded Date Recorded By Document 03/16/24 09:58 GM 03/16/24 10:15 GM Document 03/23/24 10:18 [facility] 03/23/24 10:39 03/16/24 03/23/24 09:58 10:18 Wound Center Nurse 2 #18 Left medial LE cluster -Time 09:59 10:19 -Correct Patient Yes Yes -Correct Side, Site, Position Yes Yes -Correct Procedure Yes Yes -Procedure Performed Yes Yes -Type of Procedure Debridement Debridement -Clinical Debridement Subcutaneous Subcutaneous -Tissue Removed Subcutaneous Subcutaneous -Post Debridement (cm) - Length 8.4 8.3 -Post Debridement (cm) - Width 16.5 15.5 -Post Debridement (cm) - Depth 0.1 0.1 -Total Square (Post) (cm) 138.60 128.65 -Area of Debridement (cm) - Length 8.4 8.3 -Area of Debridement (cm) - Width 16.5 15.5 -Total Square (Area) (cm) 138.60 128.65 -Tunneling No No -Undermining/Tunneling No No -Circular Undermining No No -Wound/Ulcer Outcome Not Healed Not Healed -Ulcer Cleansing Rinsed/ Rinsed/ Irrigated with Irrigated with Saline Saline -Foul Odor after Cleansing No No -Bioengineered Tissue No No -Bleeding Controlled with Pressure Pressure -Treatment Response Procedure Procedure Tolerated Well Tolerated Well -Debridement - Subq, 1st 20sq cm Yes Yes -Debridement, SubQ, ea addt'l 20sq cm 6 6 or part thereof Pain Scale: 0-10 Numeric Is Patient Pain Free? Yes Yes - Nurse 3 - General Ulcer D/C NN Start: 03/16/24 09:53 Freq: Status: Active Protocol: Activity Type Activity Date Activity User E-sign Co-sign Detail Recorded Client Recorded Date Recorded By Document 03/16/24 11:00 RB wound center 03/16/24 11:01 RB Document 03/23/24 10:59 KW d 03/23/24 11:00 KW 03/16/24 03/23/24 11:00 10:59 Wound Care Center Nurse 3 #18 Left medial LE cluster -Ulcer Cleansing Rinsed/ Irrigated with Saline -Primary Dressing Applied Aquacel Extra, Fibracol Plus Fibracol Plus 4x4 4x4 -Primary Dressing Covered/Secured with Dry Gauze & Dry Gauze & Roll Gauze, Roll Gauze, Secured with Secured with Tape Tape -Aquacel Extra 1 -Fibracol Plus 4x4 2 1 wili -Tubular Bandage Single Layer -Size of Tubigrip Used Size F -Size F ($) 2 Left -Tubular Bandage Single Layer -Size of Tubigrip Used Size F -Size F ($) 1 Pain Scale: 0-10 Numeric Is Patient Pain Free? No Yes LLE -Description Aching -Intensity 7 -Pain Behavior Withdrawal from Touch -Pain Aggravating Factors Exercise/ Activity -Alleviating Factors/Interventions Medication, Emotional Support Teaching: Wound Center Control Swelling with Leg Elevation -Person Taught Patient -Teaching Method Discussion -Response to teaching Verbalize understanding WC - Visit Discharge Discharge Condition Stable Stable Ambulatory Status Ambulatory, Ambulatory Walker Transportation Private Auto Private Auto Medication Reconcilliation completed & No No provided to patient/care provider Clinical Summary of Care Provided Yes Yes Assessment/Plan Assessment/Plan (1) Lymphedema: CODE(S): I89.0 - Lymphedema, not elsewhere classified (2) Hypertension: CODE(S): I10 - Essential (primary) hypertension QUALIFIERS: Hypertension type: primary hypertension Qualified Code(s): I10 - Essential (primary) hypertension (3) Hyperlipidemia: CODE(S): E78.5 - Hyperlipidemia, unspecified QUALIFIERS: Hyperlipidemia type: mixed hyperlipidemia Qualified Code(s): E78.2 - Mixed hyperlipidemia (4) History of DVT (deep vein thrombosis): CODE(S): Z86.718 - Personal history of other venous thrombosis and embolism (5) Venous insufficiency (chronic) (peripheral): CODE(S): I87.2 - Venous insufficiency (chronic) (peripheral) (6) Venous ulcer of left lower extremity with varicose veins: CODE(S): I83.029 - Varicose veins of left lower extremity with ulcer of unspecified site (7) Edema: CODE(S): R60.9 - Edema, unspecified QUALIFIERS: Edema type: unspecified Qualified Code(s): R60.9 - Edema, unspecified PLAN: Plan Evaluation and debridement of left medial LE ulcer performed today in clinic as annotated above. At home wound-care instructions: Will continue to dress his ulcers with Fibracol daily and cover with gauze. If his ulcers are dry then would decrease frequency of changes to every other day. Continue compression with F tubigrips b/l. Due to the delayed progress in wound healing of his venous ulcers, we discussed applying for advanced wound healing product for healing his ulcer. Due to the size of his ulcer, Theraskin application approval is being requested from his insurance as it is medically necessary for salvaging his limb and healing his ulcer. He underwent 2 applications of Theraskin to this ulcer. Since application of Theraskin he has had much improvement in epithelialization of his ulcer even though the overall size is not significantly changed there is progress. Off-loading: The patient was instructed to avoid pressure and friction on the affected areas. Reposition every 2 hours at minimum. Avoid prolonged standing and/or dangling of legs. When seated, feet should be elevated at chest level. Frequent ambulation is encouraged. Encouraged lymphedema pump use. Diet: Patient encouraged to increase protein intake while taking caution to avoid high carbohydrate and/or sugar intake. Labs/cultures/imaging: Wound culture showed 1+ Pseudomonas that is sensitive to Levofloxacin and completed treatment on 08/16/23. Follow-up: Return in 1 week for wound care follow up and have secondary dressing changed by home health Tuesday and Tuesday. Return sooner or report to the emergency room should symptoms worsen, or new symptoms arise. Note: xTV speech recognition prefitter doors software was used to create portions of this document. Sound-alike and misspelled words, as well as other prefitter doors errors may be contained in the documentation.
[2024-03-30 09:57] VITALS: BP 97/60; PULSE 56; RESP 18; TEMP 35.9
--- NOTE | 2024-03-30 12:43 | PN.PCM_ITS ---
History of Present Illness Date of Service: 03/30/24 Chief Complaint: venous ulcers of left lower extremity History of Wound: Mauricio is a 68 yo gentleman who is here today for evaluation of ulcers to to his bilateral lower legs. He has been treated multiple times in the past at the wound healing center for similar ulcers. The left LE ulcer started after he developed increased swelling and blisters of left leg in October and the right leg started sometime at the end of October. He was seen at PCP's office a culture was taken and it was resistant to several antibiotics. He was treated initially with Levaquin but had myalgias and then was treated with doxycycline which he finished 2 days ago. He denies improvement and is having swelling to his left calf and thigh. He has been having swelling to both lower extremities for many years and it has worsened over the last few months. He has not been compliant with compression. He has had increased pain especially in the left leg. He has clear yellow drainage and redness without odor or warmth. He is anti- coagulated on coumadin. He has been washing with Dial soap and witch ifrah. He had been using Collagen at times and using Calcium Alginate and covering with ABD pads during October. He was treated with 3M compression and Aquacel Ag. He was referred to the wound center for ongoing treatment. His ulcers have moderate to heavy drainage. He was recently hospitalized for cellulitis and edema for the last 10 days. He was in the hospital from 11/30/22 until 12/09/22 for treatment of cellulitis and edema. He underwent treatment with Vancomycin and IV lasix and compression. Discharged on 12/09/22. He returned to his assisted living apartment on Tuesday12/21/22. Subjective Subjective Mauricio is a 68-year-old male with longstanding history of chronic venous ulceration to the left lower extremity. He has been using Fibracol and tolerating it ok. There has been improvement in his ulcer overall. He reports continued decreased drainage. He is using KATE and size F Tubigrips for compression. 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 He continues to use his lymphedema pumps but continues to have pain with use of these pumps. Objective Data Objective Data Vital Signs: Vital Signs Temp Pulse Resp BP O2 Del Method 96.7 F L 56 L 18 97/60 Room Air 03/30/24 09:57 03/30/24 09:57 03/30/24 09:57 03/30/24 09:57 03/30/24 09:57 Oxygen Delivery Method Room Air Physical Exam Const alert, oriented x3 and no apparent distress General Appearance: cooperative and comfortable HEENT normocephalic and head/scalp atraumatic Lymph Lymphatic: lymphedema moderate Resp normal respiratory effort Effort and Inspection: able to speak in complete sentences Cardio regular rate and regular rhythm Extremity General Extremity: edema bilateral lower extremity Details: severe Skin Wounds: wounds noted Wound Narrative: as in clinical panel Psych mental status grossly normal, thought process normal, cooperative and affect normal Debridement Note Debridement Note Wound debrided: left medial LE ulcer Laterality: Left Type of Debridement: Excisional debridement Anesthesia Used: 4% Lidocaine Solution, 5% Lidocaine Gel and Cetacaine Depth: Down to and including healthy tissue and in the subcutaneous layer Percentage of wound debrided: 100 Instrument Used: - (misonix ultrasonic debridement) Tissue Removed: Yellow slough, devitalized tissue Severity: Fat Layer Exposed Amount of bleeding with debridement: Mild Bleeding Controlled with: Compression and gauze Patient tolerated procedure: Patient tolerated procedure well Post-Debridement Measurements and Additional Note: Post-Debridement Measurements/Treatment - Nurse 1 - General Ulcer Assessment Start: 03/16/24 09:53 Freq: Status: Active Protocol: ONDINA Activity Type Activity Date Activity User E-sign Co-sign Detail Recorded Client Recorded Date Recorded By Document 03/16/24 09:53 RB wound center 03/16/24 09:55 RB Document 03/23/24 09:57 RB wound 03/23/24 10:00 RB Document 03/30/24 09:57 DS 1 03/30/24 09:59 DS 03/16/24 03/23/24 03/30/24 09:53 09:57 09:57 - Today's Visit Information Type of service Follow-up Visit Follow-up Visit Follow-up Visit (Physician[facility] (Physician[facility] (Physician/[facility] ) ) ) Arrival Mode Ambulatory, Ambulatory Ambulatory, Walker Walker Transfer Assistance None None Patient Identification Verified (Name & Yes Yes ) Patient Requires Transmission-Based No No Precautions Safety Precautions Fall Prevention Vital Signs Temperature (97.8 F-99.1 F) 96.8 F L 96.1 F L 96.7 F L Temperature Source Temporal Temporal Temporal Pulse Rate (60-100) 63 63 56 L Pulse Location Monitor Monitor Monitor Respiratory Rate (12-18) 18 18 18 Respiratory rate source Observation Observation Observation Oxygen Delivery Method Room Air Blood Pressure (90/60-120/80) 91/49 L 132/74 H 97/60 Blood Pressure Mean (mm Hg) 63 93 72 Source Monitor Monitor Monitor Position Semi-Fowlers Semi-Fowlers Sitting Blood Pressure Location Left Arm Left Arm Right Arm History Since Last Visit- (Skip if this is Patient's initial visit) Have you changed medications since your No No No last visit? Any new allergies or adverse reactions No No No Had a fall/change in ADL's that may No No No increase risk of falls Signs or symptoms of abuse and/or No No No neglect since last visit Have you been in the hospital since your No No No last visit? Has dressing in place as prescribed Yes Yes Yes Has compression in place as prescribed Yes Yes Yes Has offloadiing in place as prescribed No No N/A Experienced any changes in pain level or No No No management Left Footwear Regular Shoe Right Footwear Regular Shoe Pain Scale: 0-10 Numeric Is Patient Pain Free? Yes Yes Yes WC - Nurse 1 - General Ulcer Measurement Start: 03/16/24 09:53 Freq: Status: Active Protocol: Activity Type Activity Date Activity User E-sign Co-sign Detail Recorded Client Recorded Date Recorded By Document 03/16/24 09:53 RB wound center 03/16/24 09:55 RB Document 03/23/24 09:57 RB wound 03/23/24 10:00 RB Document 03/30/24 09:59 DS 1 03/30/24 10:15 DS 03/16/24 03/23/24 03/30/24 09:53 09:57 09:59 Wound Center Nurse 1 #18 Left medial LE cluster -Combined with other wound No No -Current Size (cm) - Length 8 18.5 8.5 -Current Size (cm) - Width 18 7 18.5 -Current Size (cm) - Depth 0.1 0.1 0.1 -Total Square Cm 144 129.5 157.25 -Photo Taken No -Tunneling No No -Undermining/Tunneling No No -Circular Undermining No No -Exudate Amt Large Large -Exudate Type Serosanguineous Serosanguineous -Wound Margin Distinct, Distinct, Distinct, Outline Outline Outline Attached Attached Attached -Granulation Amt Medium (34-66%) Medium (34-66%) Small (1-33%) -Granulation Quality [place] -Slough/Fibrin Yes Yes -Necrosis Amt Medium (34-66%) Medium (34-66%) Large (67-100%) -Necrotic Tissue Type Adherent Slough Adherent Slough Adherent Slough -Structure Exposed N/A N/A -Texture (Marie-wound Skin Appearance) Assessed, Assessed, Assessed Scarring Scarring -Moisture (Marie-wound Skin Appearance) Assessed Assessed Assessed -Color (Marie-wound Skin Appearance) Assessed Assessed Assessed, Erythema -Temperature (Marie-wound Skin No Abnormality No Abnormality No Abnormality Appearance) (Pt Warm) (Pt Warm) (Pt Warm) -Tenderness on Palpation (Marie-wound No No Yes Skin Appearance) -Ulcer Cleansing Wound Cleanser Wound Cleanser Soap and Water -Foul Odor after Cleansing No No -Anesthetic Used 5% Lidocaine 5% Lidocaine 5% Lidocaine Gel Gel Gel Lower Limb Edema Present Yes Yes Left Calf (cm) 43 43.5 43.8 Left Ankle (cm) 29 28 29.5 - Nurse 2 - General Ulcer CM Notes Start: 03/16/24 09:53 Freq: Status: Active Protocol: Activity Type Activity Date Activity User E-sign Co-sign Detail Recorded Client Recorded Date Recorded By Document 03/16/24 09:58 [facility] 03/16/24 10:15 Document 03/23/24 10:18 [facility] 03/23/24 10:39 Document 03/30/24 10:31 [facility] 03/30/24 10:43 03/16/24 03/23/24 03/30/24 09:58 10:18 10:31 Wound Center Nurse 2 #18 Left medial LE cluster -Time 09:59 10:19 10:31 -Correct Patient Yes Yes Yes -Correct Side, Site, Position Yes Yes Yes -Correct Procedure Yes Yes Yes -Procedure Performed Yes Yes Yes -Type of Procedure Debridement Debridement Debridement -Clinical Debridement Subcutaneous Subcutaneous Subcutaneous -Tissue Removed Subcutaneous Subcutaneous Subcutaneous -Post Debridement (cm) - Length 8.4 8.3 8.3 -Post Debridement (cm) - Width 16.5 15.5 16.2 -Post Debridement (cm) - Depth 0.1 0.1 0.1 -Total Square (Post) (cm) 138.60 128.65 134.46 -Area of Debridement (cm) - Length 8.4 8.3 8.3 -Area of Debridement (cm) - Width 16.5 15.5 16.2 -Total Square (Area) (cm) 138.60 128.65 134.46 -Tunneling No No No -Undermining/Tunneling No No No -Circular Undermining No No No -Wound/Ulcer Outcome Not Healed Not Healed Not Healed -Ulcer Cleansing Rinsed/ Rinsed/ Rinsed/ Irrigated with Irrigated with Irrigated with Saline Saline Saline -Foul Odor after Cleansing No No No -Bioengineered Tissue No No No -Bleeding Controlled with Pressure Pressure Pressure -Treatment Response Procedure Procedure Procedure Tolerated Well Tolerated Well Tolerated Well -Debridement - Subq, 1st 20sq cm Yes Yes Yes -Debridement, SubQ, ea addt'l 20sq cm 6 6 6 or part thereof Pain Scale: 0-10 Numeric Is Patient Pain Free? Yes Yes Yes WC - Nurse 3 - General Ulcer D/C NN Start: 03/16/24 09:53 Freq: Status: Active Protocol: Activity Type Activity Date Activity User E-sign Co-sign Detail Recorded Client Recorded Date Recorded By Document 03/16/24 11:00 RB wound center 03/16/24 11:01 RB Document 03/23/24 10:59 KW d 03/23/24 11:00 KW Document 03/30/24 11:13 RB wound 03/30/24 11:14 RB 03/16/24 03/23/24 03/30/24 11:00 10:59 11:13 Wound Care Center Nurse 3 #18 Left medial LE cluster -Ulcer Cleansing Rinsed/ Rinsed/ Irrigated with Irrigated with Saline Saline -Primary Dressing Applied Aquacel Extra, Fibracol Plus C Hydrogel ($), Fibracol Plus 4x4 Fibracol Plus 4x4 4x4 -Primary Dressing Covered/Secured with Dry Gauze & Dry Gauze & Dry Gauze,Dry Roll Gauze, Roll Gauze, Gauze & Roll Secured with Secured with Gauze,Secured Tape Tape with Tape -Aquacel Extra 1 -Fibracol Plus 4x4 2 1 2 wili -Tubular Bandage Single Layer Single Layer -Size of Tubigrip Used Size F Size F -Size F ($) 2 2 Left -Tubular Bandage Single Layer -Size of Tubigrip Used Size F -Size F ($) 1 Pain Scale: 0-10 Numeric Is Patient Pain Free? No Yes Yes LLE -Description Aching -Intensity 7 -Pain Behavior Withdrawal from Touch -Pain Aggravating Factors Exercise/ Activity -Alleviating Factors/Interventions Medication, Emotional Support Teaching: Wound Center Control Swelling with Leg Elevation -Person Taught Patient -Teaching Method Discussion -Response to teaching Verbalize understanding WC - Visit Discharge Discharge Condition Stable Stable Stable Ambulatory Status Ambulatory, Ambulatory Ambulatory, Walker Walker Transportation Private Auto Private Auto Private Auto Medication Reconcilliation completed & No No No provided to patient/care provider Clinical Summary of Care Provided Yes Yes Yes Assessment/Plan Assessment/Plan (1) Lymphedema: CODE(S): I89.0 - Lymphedema, not elsewhere classified (2) Hypertension: CODE(S): I10 - Essential (primary) hypertension QUALIFIERS: Hypertension type: primary hypertension Qualified Code(s): I10 - Essential (primary) hypertension (3) Hyperlipidemia: CODE(S): E78.5 - Hyperlipidemia, unspecified QUALIFIERS: Hyperlipidemia type: mixed hyperlipidemia Qualified Code(s): E78.2 - Mixed hyperlipidemia (4) History of DVT (deep vein thrombosis): CODE(S): Z86.718 - Personal history of other venous thrombosis and embolism (5) Venous insufficiency (chronic) (peripheral): CODE(S): I87.2 - Venous insufficiency (chronic) (peripheral) (6) Venous ulcer of left lower extremity with varicose veins: CODE(S): I83.029 - Varicose veins of left lower extremity with ulcer of unspecified site (7) Edema: CODE(S): R60.9 - Edema, unspecified QUALIFIERS: Edema type: unspecified Qualified Code(s): R60.9 - Edema, unspecified PLAN: Plan Evaluation and debridement of left medial LE ulcer performed today in clinic as annotated above. At home wound-care instructions: Will have him apply hydrogel daily and cover with gauze. If his ulcers are dry then would decrease frequency of changes to every other day. Continue compression with F tubigrips b/l. Due to the delayed progress in wound healing of his venous ulcers, we discussed applying for advanced wound healing product for healing his ulcer. Due to the size of his ulcer, Theraskin application approval is being requested from his insurance as it is medically necessary for salvaging his limb and healing his ulcer. He underwent 2 applications of Theraskin to this ulcer. Since application of Theraskin he has had much improvement in epithelialization of his ulcer even though the overall size is not significantly changed there is progress. Off-loading: The patient was instructed to avoid pressure and friction on the affected areas. Reposition every 2 hours at minimum. Avoid prolonged standing and/or dangling of legs. When seated, feet should be elevated at chest level. Frequent ambulation is encouraged. Encouraged lymphedema pump use. Diet: Patient encouraged to increase protein intake while taking caution to avoid high carbohydrate and/or sugar intake. Labs/cultures/imaging: Wound culture showed 1+ Pseudomonas that is sensitive to Levofloxacin and completed treatment on 08/16/23. Follow-up: Return in 1 week for wound care follow up and have secondary dressing changed by home health Tuesday and Tuesday. Return sooner or report to the emergency room should symptoms worsen, or new symptoms arise. Note: LIA speech recognition varnish filterer software was used to create portions of this document. Sound-alike and misspelled words, as well as other varnish filterer errors may be contained in the documentation.
[2024-04-06 09:36] VITALS: BP 116/68; PULSE 64; RESP 18; TEMP 35.7
--- NOTE | 2024-04-06 12:51 | PCM.WC.PN ---
History of Present Illness Date of Service: 04/06/24 Chief Complaint: venous ulcers of left lower extremity History of Wound: Mauricio is a 68 yo gentleman who is here today for evaluation of ulcers to to his bilateral lower legs. He has been treated multiple times in the past at the wound healing center for similar ulcers. The left LE ulcer started after he developed increased swelling and blisters of left leg in October and the right leg started sometime at the end of October. He was seen at PCP's office a culture was taken and it was resistant to several antibiotics. He was treated initially with Levaquin but had myalgias and then was treated with doxycycline which he finished 2 days ago. He denies improvement and is having swelling to his left calf and thigh. He has been having swelling to both lower extremities for many years and it has worsened over the last few months. He has not been compliant with compression. He has had increased pain especially in the left leg. He has clear yellow drainage and redness without odor or warmth. He is anti-coagulated on coumadin. He has been washing with Dial soap and witch ifrah. He had been using Collagen at times and using Calcium Alginate and covering with ABD pads during October. He was treated with 3M compression and Aquacel Ag. He was referred to the wound center for ongoing treatment. His ulcers have moderate to heavy drainage. He was recently hospitalized for cellulitis and edema for the last 10 days. He was in the hospital from 11/30/22 until 12/09/22 for treatment of cellulitis and edema. He underwent treatment with Vancomycin and IV lasix and compression. Discharged on 12/09/22. He returned to his assisted living apartment on Tuesday12/21/22. Subjective Subjective Mauricio is a 68-year-old male with longstanding history of chronic venous ulceration to the left lower extremity. He has been using Fibracol and tolerating it ok. There has been improvement in his ulcer overall. He reports continued decreased drainage. He is using MARCIO and size F Tubigrips for compression. 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 He continues to use his lymphedema pumps but continues to have pain with use of these pumps. Objective Data Objective Data Vital Signs: Vital Signs Temp Pulse Resp BP O2 Del Method 96.3 F L 64 18 116/68 Room Air 04/06/24 09:36 04/06/24 09:36 04/06/24 09:36 04/06/24 09:36 03/30/24 09:57 Oxygen Delivery Method Room Air Physical Exam Const alert, oriented x3 and no apparent distress General Appearance: cooperative and comfortable HEENT normocephalic and head/scalp atraumatic Lymph Lymphatic: lymphedema moderate Resp normal respiratory effort Effort and Inspection: able to speak in complete sentences Cardio regular rate and regular rhythm Extremity General Extremity: edema bilateral lower extremity Details: severe Skin Wounds: wounds noted Wound Narrative: as in clinical panel Psych mental status grossly normal, thought process normal, cooperative and affect normal Debridement Note Debridement Note Wound debrided: left medial LE ulcer Laterality: Left Type of Debridement: Excisional debridement Anesthesia Used: 4% Lidocaine Solution, 5% Lidocaine Gel and Cetacaine Depth: Down to and including healthy tissue and in the subcutaneous layer Percentage of wound debrided: 100 Instrument Used: - (misonix ultrasonic debridement) Tissue Removed: Yellow slough, devitalized tissue Severity: Fat Layer Exposed Amount of bleeding with debridement: Mild Bleeding Controlled with: Compression and gauze Patient tolerated procedure: Patient tolerated procedure well Post-Debridement Measurements and Additional Note: Post-Debridement Measurements/Treatment - Nurse 1 - General Ulcer Assessment Start: 03/16/24 09:53 Freq: Status: Active Protocol: ONDINA Activity Type Activity Date Activity User E-sign Co-sign Detail Recorded Client Recorded Date Recorded By Document 03/16/24 09:53 wound center 03/16/24 09:55 RB Document 03/23/24 09:57 RB wound 03/23/24 10:00 RB Document 03/30/24 09:57 DS 1 03/30/24 09:59 DS Document 04/06/24 09:36 RB WOUND 04/06/24 09:50 RB 03/16/24 03/23/24 03/30/24 09:53 09:57 09:57 - Today's Visit Information Type of service Follow-up Visit Follow-up Visit Follow-up Visit (Physician/COMMUNICATIONS ASSISTANT (Physician/COMMUNICATIONS ASSISTANT (Physician/COMMUNICATIONS ASSISTANT ) ) ) Arrival Mode Ambulatory, Ambulatory Ambulatory, Walker Walker Transfer Assistance None None Patient Identification Verified (Name & Yes Yes ) Patient Requires Transmission-Based No No Precautions Safety Precautions Fall Prevention Vital Signs Temperature (97.8 F-99.1 F) 96.8 F L 96.1 F L 96.7 F L Temperature Source Temporal Temporal Temporal Pulse Rate (60-100) 63 63 56 L Pulse Location Monitor Monitor Monitor Respiratory Rate (12-18) 18 18 18 Respiratory rate source Observation Observation Observation Oxygen Delivery Method Room Air Blood Pressure (90/60-120/80) 91/49 L 132/74 H 97/60 Blood Pressure Mean (mm Hg) 63 93 72 Source Monitor Monitor Monitor Position Semi-Fowlers Semi-Fowlers Sitting Blood Pressure Location Left Arm Left Arm Right Arm History Since Last Visit- (Skip if this is Patient's initial visit) Have you changed medications since your No No No last visit? Any new allergies or adverse reactions No No No Had a fall/change in ADL's that may No No No increase risk of falls Signs or symptoms of abuse and/or No No No neglect since last visit Have you been in the hospital since your No No No last visit? Has dressing in place as prescribed Yes Yes Yes Has compression in place as prescribed Yes Yes Yes Has offloadiing in place as prescribed No No N/A Experienced any changes in pain level or No No No management Left Footwear Regular Shoe Right Footwear Regular Shoe Pain Scale: 0-10 Numeric Is Patient Pain Free? Yes Yes Yes LLE -Description -Intensity -Duration (hours) -Pain Behavior -Pain Aggravating Factors -Alleviating Factors/Interventions -Effectiveness of Alleviating Factor/ Intervention 04/06/24 09:36 WC - Today's Visit Information Type of service Follow-up Visit (Physician/COMMUNICATIONS ASSISTANT ) Arrival Mode Ambulatory, Walker Transfer Assistance None Patient Identification Verified (Name & Yes ) Patient Requires Transmission-Based No Precautions Safety Precautions Vital Signs Temperature (97.8 F-99.1 F) 96.3 F L Temperature Source Temporal Pulse Rate (60-100) 64 Pulse Location Monitor Respiratory Rate (12-18) 18 Respiratory rate source Observation Oxygen Delivery Method Blood Pressure (90/60-120/80) 116/68 Blood Pressure Mean (mm Hg) 84 Source Monitor Position Semi-Fowlers Blood Pressure Location Left Arm History Since Last Visit- (Skip if this is Patient's initial visit) Have you changed medications since your No last visit? Any new allergies or adverse reactions No Had a fall/change in ADL's that may No increase risk of falls Signs or symptoms of abuse and/or No neglect since last visit Have you been in the hospital since your No last visit? Has dressing in place as prescribed Yes Has compression in place as prescribed Yes Has offloadiing in place as prescribed No Experienced any changes in pain level or No management Left Footwear Right Footwear Pain Scale: 0-10 Numeric Is Patient Pain Free? No LLE -Description Aching -Intensity 4 -Duration (hours) Chronic -Pain Behavior Withdrawal from Touch -Pain Aggravating Factors ADL's,Walking -Alleviating Factors/Interventions Medication -Effectiveness of Alleviating Factor/ Moderately Intervention effective WC - Nurse 1 - General Ulcer Measurement Start: 03/16/24 09:53 Freq: Status: Active Protocol: Activity Type Activity Date Activity User E-sign Co-sign Detail Recorded Client Recorded Date Recorded By Document 03/16/24 09:53 RB wound center 03/16/24 09:55 RB Document 03/23/24 09:57 RB wound 03/23/24 10:00 RB Document 03/30/24 09:59 DS 1 03/30/24 10:15 DS Document 04/06/24 09:36 RB WOUND 04/06/24 09:50 RB 03/16/24 03/23/24 03/30/24 09:53 09:57 09:59 Wound Center Nurse 1 #18 Left medial LE cluster -Combined with other wound No No -Current Size (cm) - Length 8 18.5 8.5 -Current Size (cm) - Width 18 7 18.5 -Current Size (cm) - Depth 0.1 0.1 0.1 -Total Square Cm 144 129.5 157.25 -Photo Taken No -Tunneling No No -Undermining/Tunneling No No -Circular Undermining No No -Exudate Amt Large Large -Exudate Type Serosanguineous Serosanguineous -Wound Margin Distinct, Distinct, Distinct, Outline Outline Outline Attached Attached Attached -Granulation Amt Medium (34-66%) Medium (34-66%) Small (1-33%) -Granulation Quality [place] -Slough/Fibrin Yes Yes -Necrosis Amt Medium (34-66%) Medium (34-66%) Large (67-100%) -Necrotic Tissue Type Adherent Slough Adherent Slough Adherent Slough -Structure Exposed N/A N/A -Texture (Marie-wound Skin Appearance) Assessed, Assessed, Assessed Scarring Scarring -Moisture (Marie-wound Skin Appearance) Assessed Assessed Assessed -Color (Marie-wound Skin Appearance) Assessed Assessed Assessed, Erythema -Temperature (Marie-wound Skin No Abnormality No Abnormality No Abnormality Appearance) (Pt Warm) (Pt Warm) (Pt Warm) -Tenderness on Palpation (Marie-wound No No Yes Skin Appearance) -Ulcer Cleansing Wound Cleanser Wound Cleanser Soap and Water -Foul Odor after Cleansing No No -Anesthetic Used 5% Lidocaine 5% Lidocaine 5% Lidocaine Gel Gel Gel Lower Limb Edema Present Yes Yes Left Calf (cm) 43 43.5 43.8 Left Ankle (cm) 29 28 29.5 04/06/24 09:36 Wound Center Nurse 1 #18 Left medial LE cluster -Combined with other wound No -Current Size (cm) - Length 8 -Current Size (cm) - Width 15.5 -Current Size (cm) - Depth 0.1 -Total Square Cm 124.0 -Photo Taken -Tunneling No -Undermining/Tunneling No -Circular Undermining No -Exudate Amt Large -Exudate Type Serosanguineous -Wound Margin Distinct, Outline Attached -Granulation Amt -Granulation Quality [place] -Slough/Fibrin Yes -Necrosis Amt Medium (34-66%) -Necrotic Tissue Type Adherent Slough -Structure Exposed N/A -Texture (Marie-wound Skin Appearance) Assessed, Scarring -Moisture (Marie-wound Skin Appearance) Assessed -Color (Marie-wound Skin Appearance) Assessed -Temperature (Marie-wound Skin No Abnormality Appearance) (Pt Warm) -Tenderness on Palpation (Marie-wound No Skin Appearance) -Ulcer Cleansing Wound Cleanser -Foul Odor after Cleansing No -Anesthetic Used 5% Lidocaine Gel Lower Limb Edema Present Yes Left Calf (cm) 43.5 Left Ankle (cm) 29.5 - Nurse 2 - General Ulcer CM Notes Start: 03/16/24 09:53 Freq: Status: Active Protocol: Activity Type Activity Date Activity User E-sign Co-sign Detail Recorded Client Recorded Date Recorded By Document 03/16/24 09:58 GM 03/16/24 10:15 Document 03/23/24 10:18 [facility] 03/23/24 10:39 Document 03/30/24 10:31 [facility] 03/30/24 10:43 Document 04/06/24 10:13 [facility] 04/06/24 10:21 GM 03/16/24 03/23/24 03/30/24 09:58 10:18 10:31 Wound Center Nurse 2 #18 Left medial LE cluster -Time 09:59 10:19 10:31 -Correct Patient Yes Yes Yes -Correct Side, Site, Position Yes Yes Yes -Correct Procedure Yes Yes Yes -Procedure Performed Yes Yes Yes -Type of Procedure Debridement Debridement Debridement -Clinical Debridement Subcutaneous Subcutaneous Subcutaneous -Tissue Removed Subcutaneous Subcutaneous Subcutaneous -Post Debridement (cm) - Length 8.4 8.3 8.3 -Post Debridement (cm) - Width 16.5 15.5 16.2 -Post Debridement (cm) - Depth 0.1 0.1 0.1 -Total Square (Post) (cm) 138.60 128.65 134.46 -Area of Debridement (cm) - Length 8.4 8.3 8.3 -Area of Debridement (cm) - Width 16.5 15.5 16.2 -Total Square (Area) (cm) 138.60 128.65 134.46 -Tunneling No No No -Undermining/Tunneling No No No -Circular Undermining No No No -Wound/Ulcer Outcome Not Healed Not Healed Not Healed -Ulcer Cleansing Rinsed/ Rinsed/ Rinsed/ Irrigated with Irrigated with Irrigated with Saline Saline Saline -Foul Odor after Cleansing No No No -Bioengineered Tissue No No No -Bleeding Controlled with Pressure Pressure Pressure -Treatment Response Procedure Procedure Procedure Tolerated Well Tolerated Well Tolerated Well -Debridement - Subq, 1st 20sq cm Yes Yes Yes -Debridement, SubQ, ea addt'l 20sq cm 6 6 6 or part thereof Pain Scale: 0-10 Numeric Is Patient Pain Free? Yes Yes Yes 04/06/24 10:13 Wound Center Nurse 2 #18 Left medial LE cluster -Time 10:13 -Correct Patient Yes -Correct Side, Site, Position Yes -Correct Procedure Yes -Procedure Performed Yes -Type of Procedure Debridement -Clinical Debridement Subcutaneous -Tissue Removed Subcutaneous -Post Debridement (cm) - Length 8.5 -Post Debridement (cm) - Width 16.8 -Post Debridement (cm) - Depth 0.1 -Total Square (Post) (cm) 142.80 -Area of Debridement (cm) - Length 8.5 -Area of Debridement (cm) - Width 16.8 -Total Square (Area) (cm) 142.80 -Tunneling No -Undermining/Tunneling No -Circular Undermining No -Wound/Ulcer Outcome Not Healed -Ulcer Cleansing Rinsed/ Irrigated with Saline -Foul Odor after Cleansing No -Bioengineered Tissue -Bleeding Controlled with Silver Nitrate -Treatment Response Procedure Tolerated Well -Debridement - Subq, 1st 20sq cm Yes -Debridement, SubQ, ea addt'l 20sq cm 7 or part thereof Pain Scale: 0-10 Numeric Is Patient Pain Free? Yes WC - Nurse 3 - General Ulcer D/C NN Start: 03/16/24 09:53 Freq: Status: Active Protocol: Activity Type Activity Date Activity User E-sign Co-sign Detail Recorded Client Recorded Date Recorded By Document 03/16/24 11:00 RB wound center 03/16/24 11:01 RB Document 03/23/24 10:59 KW d 03/23/24 11:00 KW Document 03/30/24 11:13 RB wound 03/30/24 11:14 RB Document 04/06/24 10:45 KW ; 04/06/24 10:46 KW 03/16/24 03/23/24 03/30/24 11:00 10:59 11:13 Wound Care Center Nurse 3 #18 Left medial LE cluster -Ulcer Cleansing Rinsed/ Rinsed/ Irrigated with Irrigated with Saline Saline -Primary Dressing Applied Aquacel Extra, Fibracol Plus C Hydrogel ($), Fibracol Plus 4x4 Fibracol Plus 4x4 4x4 -Primary Dressing Covered/Secured with Dry Gauze & Dry Gauze & Dry Gauze,Dry Roll Gauze, Roll Gauze, Gauze & Roll Secured with Secured with Gauze,Secured Tape Tape with Tape -Aquacel Extra 1 -Fibracol Plus 4x4 2 1 2 wili -Tubular Bandage Single Layer Single Layer -Size of Tubigrip Used Size F Size F -Size F ($) 2 2 Right -Tubular Bandage -Size of Tubigrip Used -Size E ($) Left -Compression Wrap -Tubular Bandage Single Layer -Size of Tubigrip Used Size F -Size E ($) -Size F ($) 1 Pain Scale: 0-10 Numeric Is Patient Pain Free? No Yes Yes LLE -Description Aching -Intensity 7 -Pain Behavior Withdrawal from Touch -Pain Aggravating Factors Exercise/ Activity -Alleviating Factors/Interventions Medication, Emotional Support Teaching: Wound Center Control Swelling with Leg Elevation -Person Taught Patient -Teaching Method Discussion -Response to teaching Verbalize understanding WC - Visit Discharge Discharge Condition Stable Stable Stable Ambulatory Status Ambulatory, Ambulatory Ambulatory, Walker Walker Transportation Private Auto Private Auto Private Auto Medication Reconcilliation completed & No No No provided to patient/care provider Clinical Summary of Care Provided Yes Yes Yes 04/06/24 10:45 Wound Care Center Nurse 3 #18 Left medial LE cluster -Ulcer Cleansing -Primary Dressing Applied C Hydrogel ($) -Primary Dressing Covered/Secured with Dry Gauze & Roll Gauze, Secured with Tape -Aquacel Extra -Fibracol Plus 4x4 wili -Tubular Bandage -Size of Tubigrip Used -Size F ($) Right -Tubular Bandage Single Layer -Size of Tubigrip Used Size E -Size E ($) 1 Left -Compression Wrap Marcio Wrap -Tubular Bandage Single Layer -Size of Tubigrip Used Size E -Size E ($) 1 -Size F ($) Pain Scale: 0-10 Numeric Is Patient Pain Free? Yes LLE -Description -Intensity -Pain Behavior -Pain Aggravating Factors -Alleviating Factors/Interventions Teaching: Wound Center Control Swelling with Leg Elevation -Person Taught -Teaching Method -Response to teaching WC - Visit Discharge Discharge Condition Ambulatory Status Transportation Medication Reconcilliation completed & provided to patient/care provider Clinical Summary of Care Provided Assessment/Plan Assessment/Plan (1) Lymphedema: CODE(S): I89.0 - Lymphedema, not elsewhere classified (2) Hypertension: CODE(S): I10 - Essential (primary) hypertension QUALIFIERS: Hypertension type: primary hypertension Qualified Code(s): I10 - Essential (primary) hypertension (3) Hyperlipidemia: CODE(S): E78.5 - Hyperlipidemia, unspecified QUALIFIERS: Hyperlipidemia type: mixed hyperlipidemia Qualified Code(s): E78.2 - Mixed hyperlipidemia (4) History of DVT (deep vein thrombosis): CODE(S): Z86.718 - Personal history of other venous thrombosis and embolism (5) Venous insufficiency (chronic) (peripheral): CODE(S): I87.2 - Venous insufficiency (chronic) (peripheral) (6) Venous ulcer of left lower extremity with varicose veins: CODE(S): I83.029 - Varicose veins of left lower extremity with ulcer of unspecified site (7) Edema: CODE(S): R60.9 - Edema, unspecified QUALIFIERS: Edema type: unspecified Qualified Code(s): R60.9 - Edema, unspecified PLAN: Plan Evaluation and debridement of left medial LE ulcer performed today in clinic as annotated above. At home wound-care instructions: Will have him apply hydrogel daily and cover with gauze. If his ulcers are dry then would decrease frequency of changes to every other day. Continue compression with F tubigrips b/l. Due to the delayed progress in wound healing of his venous ulcers, we discussed applying for advanced wound healing product for healing his ulcer. Due to the size of his ulcer, Theraskin application approval is being requested from his insurance as it is medically necessary for salvaging his limb and healing his ulcer. He underwent 2 applications of Theraskin to this ulcer. Since application of Theraskin he has had much improvement in epithelialization of his ulcer even though the overall size is not significantly changed there is progress. Off-loading: The patient was instructed to avoid pressure and friction on the affected areas. Reposition every 2 hours at minimum. Avoid prolonged standing and/or dangling of legs. When seated, feet should be elevated at chest level. Frequent ambulation is encouraged. Encouraged lymphedema pump use. Diet: Patient encouraged to increase protein intake while taking caution to avoid high carbohydrate and/or sugar intake. Labs/cultures/imaging: Wound culture showed 1+ Pseudomonas that is sensitive to Levofloxacin and completed treatment on 08/16/23. Follow-up: Return in 2 weeks for wound care follow up and have secondary dressing changed by home health Tuesday and Tuesday. Return sooner or report to the emergency room should symptoms worsen, or new symptoms arise. Note: [employer] speech recognition project manager finance software was used to create portions of this document. Sound-alike and misspelled words, as well as other project manager finance errors may be contained in the documentation.
== END 2024-04-08 23:59 | disposition home or self-care (01) ==
LOC: WC 09:45
PROVIDERS: PCP Family Medicine; Referring Provider Family Medicine; Visit Provider Family Medicine
DX: I83.028 Varicose veins of left lower extremity with ulcer other part of lower leg (principal); L97.822 Non-pressure chronic ulcer of other part of left lower leg with fat layer exposed; I10 Essential (primary) hypertension; E78.2 Mixed hyperlipidemia; Z86.718 Personal history of other venous thrombosis and embolism; R60.0 Localized edema
CPT/HCPCS: 11042; 11045

== ENCOUNTER → 2024-04-11 | Outpatient (CLI) | payer MEDICARE, OTHER, SELFPAY ==
[2024-04-13 13:07] LABS: PSA, Free 1.16 ng/mL; PSA, Free % 12.7 % (.)
== END | disposition home or self-care (01) ==
LOC: LAB 04:17
PROVIDERS: PCP Family Medicine; Referring Provider Nurse Practitioner; Visit Provider Nurse Practitioner
DX: R97.20 Elevated prostate specific antigen [PSA] (principal)
CPT/HCPCS: 36415; 84153; 84154

== ENCOUNTER → 2024-04-23 | Outpatient (CLI) | payer MEDICARE, OTHER, SELFPAY ==
--- NOTE | 2024-04-23 13:35 | MRI_ITS ---
EXAMINATION: MR Pelvis Male WO/W Contrast COMPARISON: None CLINICAL HISTORY: 68 yo M with elevated PSA Most recent PSA = 9.5 ng/ml TECHNIQUE: Standard prostate MR protocol was used before and after administration of 23 cc of IV Clariscan. FINDINGS: Prostate volume: 52 cc PSA density: 0.18 ng/ml2 Length of membranous urethra: 13 mm Post-biopsy hemorrhage: None Multiparametric MR evaluation: Heterogeneous appearance of the central gland is consistent with benign prostatic hyperplasia. Lesion 1: LOCATION - 0.6 x 0.5 cm mildly T2 hypointense round lesion in the left posterior peripheral zone near apex. It is mildly bright on the fibula and mildly dark on ADC map. T2 - 3 DWI - 3 DCE - inconclusive Overall PI-RADS v2 score = 3 Lesion 2: LOCATION - there is a 1.4 x 1.1 x 0.9 cm mildly T2 hypointense indistinct lesion with obscured margins in the right anterolateral transitional zone near base. It is moderately bright on DWI and markedly dark on ADC map. T2 - 3 DWI - 3 DCE - inconclusive Overall PI-RADS v2 score = 3 Capsular margin and neurovascular bundle: Questionable right anterior/anterolateral microcapsular extension by 2 mm. Seminal vesicles: Not involved. Lymph nodes: No lymphadenopathy in the field of view. Bones: No suspicious lesions in the field of view. MRI/Pelvis W/WO Contrast IMPRESSION: 1.4 cm PI-RADS 3 lesion in the right anterolateral TZ near base. -Questionable right anterior/anterolateral microcapsular extension by 2 mm. - No evidence of seminal vesicle invasion. - No lymphadenopathy. - No suspicious bone lesions. 0.6 cm PI-RADS 3 lesion in the left posterior PZ near apex. - No evidence of macroscopic extracapsular extension. - No evidence of seminal vesicle invasion. - No lymphadenopathy. - No suspicious bone lesions. Electronically Signed: Jorge Williamson MD at 18:02 EDT ,
[2024-04-23 14:05] LABS: CREATININE FINGERSTICK < 1.0 mg/dL (0.70-1.30); EGFR FINGERSTICK > 60.0000 mL/min (>60)
== END | disposition home or self-care (01) ==
LOC: MRI 13:20
PROVIDERS: PCP Family Medicine; Referring Provider Urology; Visit Provider Urology
DX: R97.20 Elevated prostate specific antigen [PSA] (principal)
CPT/HCPCS: 72197; A9575

== ENCOUNTER 2024-05-04 10:00 | Outpatient (RCR) | payer MEDICARE, OTHER, SELFPAY ==
[2024-04-09 00:33] VITALS: BP 114/57; PULSE 73; RESP 18; TEMP 36.4
[2024-04-20 10:12] VITALS: BP 120/74; PULSE 65; RESP 18; TEMP 36.2
--- NOTE | 2024-04-20 12:32 | PCM.WC.PN ---
History of Present Illness Date of Service: 04/20/24 Chief Complaint: venous ulcers of left lower extremity History of Wound: Mauricio is a 68 yo gentleman who is here today for evaluation of ulcers to to his bilateral lower legs. He has been treated multiple times in the past at the wound healing center for similar ulcers. The left LE ulcer started after he developed increased swelling and blisters of left leg in October and the right leg started sometime at the end of October. He was seen at PCP's office a culture was taken and it was resistant to several antibiotics. He was treated initially with Levaquin but had myalgias and then was treated with doxycycline which he finished 2 days ago. He denies improvement and is having swelling to his left calf and thigh. He has been having swelling to both lower extremities for many years and it has worsened over the last few months. He has not been compliant with compression. He has had increased pain especially in the left leg. He has clear yellow drainage and redness without odor or warmth. He is anti-coagulated on coumadin. He has been washing with Dial soap and witch ifrah. He had been using Collagen at times and using Calcium Alginate and covering with ABD pads during October. He was treated with 3M compression and Aquacel Ag. He was referred to the wound center for ongoing treatment. His ulcers have moderate to heavy drainage. He was recently hospitalized for cellulitis and edema for the last 10 days. He was in the hospital from 11/30/22 until 12/09/22 for treatment of cellulitis and edema. He underwent treatment with Vancomycin and IV lasix and compression. Discharged on 12/09/22. He returned to his assisted living apartment on Tuesday12/21/22. Subjective Subjective Mauricio is a 68-year-old male with longstanding history of chronic venous ulceration to the left lower extremity. He has been using hydrogel and wet to dry dressings. There has been improvement in his ulcer overall. He reports continued decreased drainage. He is using MARCIO and size F Tubigrips for compression. 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 He continues to use his lymphedema pumps but continues to have pain with use of these pumps. Objective Data Objective Data Vital Signs: Vital Signs Temp Pulse Resp BP O2 Del Method 97.2 F L 65 18 120/74 Room Air 04/20/24 10:12 04/20/24 10:12 04/20/24 10:12 04/20/24 10:12 04/20/24 10:12 Oxygen Delivery Method Room Air Physical Exam Const alert, oriented x3 and no apparent distress General Appearance: cooperative and comfortable HEENT normocephalic and head/scalp atraumatic Lymph Lymphatic: lymphedema moderate Resp normal respiratory effort Effort and Inspection: able to speak in complete sentences Cardio regular rate and regular rhythm Extremity General Extremity: edema bilateral lower extremity Details: severe Skin Wounds: wounds noted Wound Narrative: as in clinical panel Psych mental status grossly normal, thought process normal, cooperative and affect normal Debridement Note Debridement Note Wound debrided: left medial lower extremity ulcer Laterality: Left Type of Debridement: Excisional debridement Anesthesia Used: 4% Lidocaine Solution, 5% Lidocaine Gel and Cetacaine Depth: Down to and including healthy tissue and in the subcutaneous layer Percentage of wound debrided: 100 Instrument Used: 5mm curette Tissue Removed: Yellow slough, devitalized tissue Severity: Fat Layer Exposed Amount of bleeding with debridement: Mild Bleeding Controlled with: Compression and gauze Patient tolerated procedure: Patient tolerated procedure well Post-Debridement Measurements and Additional Note: Post-Debridement Measurements/Treatment - Nurse 1 - General Ulcer Assessment Start: 04/20/24 10:12 Freq: Status: Active Protocol: ONDINA Activity Type Activity Date Activity User E-sign Co-sign Detail Recorded Client Recorded Date Recorded By Document 04/20/24 10:12 KW ' 04/20/24 10:22 KW 04/20/24 10:12 - Today's Visit Information Type of service 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 Any new allergies or adverse reactions No Had a fall/change in ADL's that may No increase risk of falls Signs or symptoms of abuse and/or No neglect since last visit Have you been in the hospital since your No last visit? Has dressing in place as prescribed Yes Has compression in place as prescribed Yes Has offloadiing in place as prescribed N/A Experienced any changes in pain level or No management Left Footwear Regular Shoe Right Footwear Regular Shoe Pain Scale: 0-10 Numeric Is Patient Pain Free? Yes - Nurse 1 - General Ulcer Measurement Start: 04/20/24 10:12 Freq: Status: Active Protocol: Activity Type Activity Date Activity User E-sign Co-sign Detail Recorded Client Recorded Date Recorded By Document 04/20/24 10:12 KW ' 04/20/24 10:22 KW 04/20/24 10:12 Wound Center Nurse 1 #18 Left medial LE cluster -Current Size (cm) - Length 8.3 -Current Size (cm) - Width 17.5 -Current Size (cm) - Depth 0.1 -Total Square Cm 145.25 -Date of Last Picture (Recall this 04/20/24 field) -Epithelialization Medium 34-66% -Exudate Amt Small -Exudate Type Serosanguineous -Wound Margin Distinct, Outline Attached -Granulation Amt Large (67-100%) -Granulation Quality Red -Texture (Marie-wound Skin Appearance) Assessed -Moisture (Marie-wound Skin Appearance) Assessed,Dry/ Scaly -Color (Marie-wound Skin Appearance) Assessed -Temperature (Marie-wound Skin No Abnormality Appearance) (Pt Warm) -Tenderness on Palpation (Marie-wound No Skin Appearance) -Ulcer Cleansing Rinsed/ Irrigated with Saline -Foul Odor after Cleansing No -Anesthetic Used 5% Lidocaine Gel Left Calf (cm) 42.2 Left Ankle (cm) 29 - Nurse 2 - General Ulcer CM Notes Start: 04/20/24 10:12 Freq: Status: Active Protocol: Activity Type Activity Date Activity User E-sign Co-sign Detail Recorded Client Recorded Date Recorded By Document 04/20/24 10:36 GM 04/20/24 10:42 04/20/24 10:36 Wound Center Nurse 2 #18 Left medial LE cluster -Time 10:36 -Correct Patient Yes -Correct Side, Site, Position Yes -Correct Procedure Yes -Procedure Performed Yes -Type of Procedure Debridement -Clinical Debridement Subcutaneous -Tissue Removed Subcutaneous -Post Debridement (cm) - Length 8.3 -Post Debridement (cm) - Width 16 -Post Debridement (cm) - Depth 0.1 -Total Square (Post) (cm) 132.8 -Area of Debridement (cm) - Length 8.3 -Area of Debridement (cm) - Width 16 -Total Square (Area) (cm) 132.8 -Tunneling No -Undermining/Tunneling No -Circular Undermining No -Wound/Ulcer Outcome Not Healed -Ulcer Cleansing Wound Cleanser -Foul Odor after Cleansing No -Bioengineered Tissue No -Bleeding Controlled with Pressure -Treatment Response Procedure Tolerated Well -Debridement - Subq, 1st 20sq cm Yes -Debridement, SubQ, ea addt'l 20sq cm 6 or part thereof Pain Scale: 0-10 Numeric Is Patient Pain Free? Yes WC - Nurse 3 - General Ulcer D/C NN Start: 04/20/24 10:12 Freq: Status: Active Protocol: Activity Type Activity Date Activity User E-sign Co-sign Detail Recorded Client Recorded Date Recorded By Document 04/20/24 11:31 KW ' 04/20/24 11:31 KW 04/20/24 11:31 Wound Care Center Nurse 3 #18 Left medial LE cluster -Other Dressing HYDROGEL -Primary Dressing Covered/Secured with Dry Gauze & Roll Gauze, Secured with Tape Right -Compression Wrap Marcio Wrap -Tubular Bandage Single Layer -Size of Tubigrip Used Size E -Size E ($) 1 Left -Compression Wrap Marcio Wrap -Tubular Bandage Single Layer -Size of Tubigrip Used Size E -Size E ($) 1 Pain Scale: 0-10 Numeric Is Patient Pain Free? Yes Assessment/Plan Assessment/Plan (1) Lymphedema: CODE(S): I89.0 - Lymphedema, not elsewhere classified (2) Hypertension: CODE(S): I10 - Essential (primary) hypertension QUALIFIERS: Hypertension type: primary hypertension Qualified Code(s): I10 - Essential (primary) hypertension (3) Hyperlipidemia: CODE(S): E78.5 - Hyperlipidemia, unspecified QUALIFIERS: Hyperlipidemia type: mixed hyperlipidemia Qualified Code(s): E78.2 - Mixed hyperlipidemia (4) History of DVT (deep vein thrombosis): CODE(S): Z86.718 - Personal history of other venous thrombosis and embolism (5) Venous insufficiency (chronic) (peripheral): CODE(S): I87.2 - Venous insufficiency (chronic) (peripheral) (6) Venous ulcer of left lower extremity with varicose veins: CODE(S): I83.029 - Varicose veins of left lower extremity with ulcer of unspecified site (7) Edema: CODE(S): R60.9 - Edema, unspecified QUALIFIERS: Edema type: unspecified Qualified Code(s): R60.9 - Edema, unspecified PLAN: Plan Evaluation and debridement of left medial LE ulcer performed today in clinic as annotated above. At home wound-care instructions: Will have him apply hydrogel daily and wet to dry dressings and cover with gauze. If his ulcers are dry then would decrease frequency of changes to every other day. Continue compression with F tubigrips b/l. Due to the delayed progress in wound healing of his venous ulcers, we discussed applying for advanced wound healing product for healing his ulcer. Due to the size of his ulcer, Theraskin application approval is being requested from his insurance as it is medically necessary for salvaging his limb and healing his ulcer. He underwent 2 applications of Theraskin to this ulcer. Since application of Theraskin he has had much improvement in epithelialization of his ulcer even though the overall size is not significantly changed there is progress. Off-loading: The patient was instructed to avoid pressure and friction on the affected areas. Reposition every 2 hours at minimum. Avoid prolonged standing and/or dangling of legs. When seated, feet should be elevated at chest level. Frequent ambulation is encouraged. Encouraged lymphedema pump use. Diet: Patient encouraged to increase protein intake while taking caution to avoid high carbohydrate and/or sugar intake. Labs/cultures/imaging: Wound culture showed 1+ Pseudomonas that is sensitive to Levofloxacin and completed treatment on 08/16/23. Follow-up: Return in 1 week for wound care follow up and have secondary dressing changed by home health Tuesday and Tuesday. Return sooner or report to the emergency room should symptoms worsen, or new symptoms arise. Note: [employer] speech recognition lens coating technician software was used to create portions of this document. Sound-alike and misspelled words, as well as other lens coating technician errors may be contained in the documentation.
--- NOTE | 2024-04-25 09:52 | WC ---
PHOTO 04/20/24 SEEMA
--- NOTE | 2024-04-25 09:52 | WC ---
PHOTO 04/20/24 SEEMA
--- NOTE | 2024-04-25 09:53 | WC ---
PHOTO LLE 04/20/24
[2024-04-27 10:04] VITALS: BP 124/73; PULSE 61; RESP 18; TEMP 35.7
--- NOTE | 2024-04-27 11:17 | PN.PCM_ITS ---
History of Present Illness Date of Service: 04/27/24 Chief Complaint: venous ulcers of left lower extremity History of Wound: Mauricio is a 68 yo gentleman who is here today for evaluation of ulcers to to his bilateral lower legs. He has been treated multiple times in the past at the wound healing center for similar ulcers. The left LE ulcer started after he developed increased swelling and blisters of left leg in October and the right leg started sometime at the end of October. He was seen at PCP's office a culture was taken and it was resistant to several antibiotics. He was treated initially with Levaquin but had myalgias and then was treated with doxycycline which he finished 2 days ago. He denies improvement and is having swelling to his left calf and thigh. He has been having swelling to both lower extremities for many years and it has worsened over the last few months. He has not been compliant with compression. He has had increased pain especially in the left leg. He has clear yellow drainage and redness without odor or warmth. He is anti- coagulated on coumadin. He has been washing with Dial soap and witch ifrah. He had been using Collagen at times and using Calcium Alginate and covering with ABD pads during October. He was treated with 3M compression and Aquacel Ag. He was referred to the wound center for ongoing treatment. His ulcers have moderate to heavy drainage. He was recently hospitalized for cellulitis and edema for the last 10 days. He was in the hospital from 11/30/22 until 12/09/22 for treatment of cellulitis and edema. He underwent treatment with Vancomycin and IV lasix and compression. Discharged on 12/09/22. He returned to his assisted living apartment on Tuesday12/21/22. Subjective Subjective Mauricio is a 68-year-old male with longstanding history of chronic venous ulceration to the left lower extremity. He has been using hydrogel and wet to dry dressings. There has been improvement in his ulcer overall. He reports continued decreased drainage. He is using KATE and size F Tubigrips for compression. 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 He continues to use his lymphedema pumps but continues to have pain with use of these pumps. Objective Data Objective Data Vital Signs: Vital Signs Temp Pulse Resp BP O2 Del Method 96.2 F L 61 18 124/73 H Room Air 04/27/24 10:04 04/27/24 10:04 04/27/24 10:04 04/27/24 10:04 04/27/24 10:04 Oxygen Delivery Method Room Air Physical Exam Const alert, oriented x3 and no apparent distress General Appearance: cooperative and comfortable HEENT normocephalic and head/scalp atraumatic Lymph Lymphatic: lymphedema moderate Resp normal respiratory effort Effort and Inspection: able to speak in complete sentences Cardio regular rate and regular rhythm Extremity General Extremity: edema bilateral lower extremity Details: severe Skin Wounds: wounds noted Wound Narrative: as in clinical panel Psych mental status grossly normal, thought process normal, cooperative and affect normal Debridement Note Debridement Note Wound debrided: left medial LE ulcer Laterality: Left Type of Debridement: Excisional debridement Anesthesia Used: 5% Lidocaine Gel Depth: Down to and including healthy tissue and in the subcutaneous layer Percentage of wound debrided: 100 Instrument Used: 5mm curette Tissue Removed: yellow slough, devitalized tissue Severity: Fat Layer Exposed Amount of bleeding with debridement: Mild Bleeding Controlled with: Compression and gauze Patient tolerated procedure: Patient tolerated procedure well Post-Debridement Measurements and Additional Note: Post-Debridement Measurements/Treatment - Nurse 1 - General Ulcer Assessment Start: 04/20/24 10:12 Freq: Status: Active Protocol: [email or web address] Activity Type Activity Date Activity User E-sign Co-sign Detail Recorded Client Recorded Date Recorded By Document 04/20/24 10:12 KW ' 04/20/24 10:22 KW Document 04/27/24 10:04 KW l 04/27/24 10:12 KW 04/20/24 04/27/24 10:12 10:04 - Today's Visit Information Type of service Follow-up Visit Follow-up Visit (Physician/ELECTROLYSIS NEEDLE OPERATOR (Physician/ELECTROLYSIS NEEDLE OPERATOR ) ) Arrival Mode Ambulatory, Ambulatory, Walker Walker Patient Identification Verified (Name & Yes Yes ) Vital Signs Temperature (97.8 F-99.1 F) 97.2 F L 96.2 F L Temperature Source Temporal Temporal Pulse Rate (60-100) 65 61 Pulse Location Monitor Monitor Respiratory Rate (12-18) 18 18 Respiratory rate source Observation Observation Oxygen Delivery Method Room Air Room Air Blood Pressure (90/60-120/80) 120/74 124/73 H Blood Pressure Mean (mm Hg) 89 90 Source Monitor Monitor Position Semi-Fowlers Semi-Fowlers Blood Pressure Location Right Arm Left Arm History Since Last Visit- (Skip if this is Patient's initial visit) Have you changed medications since your No No last visit? Any new allergies or adverse reactions No No Had a fall/change in ADL's that may No No increase risk of falls Signs or symptoms of abuse and/or No No neglect since last visit Have you been in the hospital since your No No last visit? Has dressing in place as prescribed Yes Yes Has compression in place as prescribed Yes Yes Has offloadiing in place as prescribed N/A N/A Experienced any changes in pain level or No No management Left Footwear Regular Shoe Regular Shoe Right Footwear Regular Shoe Regular Shoe Pain Scale: 0-10 Numeric Is Patient Pain Free? Yes Yes WC - Nurse 1 - General Ulcer Measurement Start: 04/20/24 10:12 Freq: Status: Active Protocol: Activity Type Activity Date Activity User E-sign Co-sign Detail Recorded Client Recorded Date Recorded By Document 04/20/24 10:12 KW ' 04/20/24 10:22 KW Document 04/27/24 10:04 KW l 04/27/24 10:12 KW 04/20/24 04/27/24 10:12 10:04 Wound Center Nurse 1 #18 Left medial LE cluster -Current Size (cm) - Length 8.3 7.5 -Current Size (cm) - Width 17.5 18.2 -Current Size (cm) - Depth 0.1 0.2 -Total Square Cm 145.25 136.50 -Date of Last Picture (Recall this 04/20/24 field) -Epithelialization Medium 34-66% Medium 34-66% -Exudate Amt Small Small -Exudate Type Serosanguineous Serosanguineous -Wound Margin Distinct, Distinct, Outline Outline Attached Attached -Granulation Amt Large (67-100%) Large (67-100%) -Granulation Quality Red Red -Texture (Marie-wound Skin Appearance) Assessed Assessed -Moisture (Marie-wound Skin Appearance) Assessed,Dry/ Assessed Scaly -Color (Marie-wound Skin Appearance) Assessed Assessed -Temperature (Marie-wound Skin No Abnormality No Abnormality Appearance) (Pt Warm) (Pt Warm) -Tenderness on Palpation (Marie-wound No No Skin Appearance) -Ulcer Cleansing Rinsed/ Soap and Water Irrigated with Saline -Foul Odor after Cleansing No No -Anesthetic Used 5% Lidocaine 5% Lidocaine Gel Gel Left Calf (cm) 42.2 42.5 Left Ankle (cm) 29 - Nurse 2 - General Ulcer CM Notes Start: 04/20/24 10:12 Freq: Status: Active Protocol: Activity Type Activity Date Activity User E-sign Co-sign Detail Recorded Client Recorded Date Recorded By Document 04/20/24 10:36 [facility] 04/20/24 10:42 Document 04/27/24 10:30 [facility] 04/27/24 10:46 04/20/24 04/27/24 10:36 10:30 Wound Center Nurse 2 #18 Left medial LE cluster -Time 10:36 10:36 -Correct Patient Yes Yes -Correct Side, Site, Position Yes Yes -Correct Procedure Yes Yes -Procedure Performed Yes Yes -Type of Procedure Debridement Debridement -Clinical Debridement Subcutaneous Subcutaneous -Tissue Removed Subcutaneous Subcutaneous -Post Debridement (cm) - Length 8.3 8.1 -Post Debridement (cm) - Width 16 16.5 -Post Debridement (cm) - Depth 0.1 0.1 -Total Square (Post) (cm) 132.8 133.65 -Area of Debridement (cm) - Length 8.3 8.1 -Area of Debridement (cm) - Width 16 16.5 -Total Square (Area) (cm) 132.8 133.65 -Tunneling No No -Undermining/Tunneling No No -Circular Undermining No No -Wound/Ulcer Outcome Not Healed Not Healed -Ulcer Cleansing Wound Cleanser Rinsed/ Irrigated with Saline -Foul Odor after Cleansing No No -Bioengineered Tissue No No -Bleeding Controlled with Pressure Pressure -Treatment Response Procedure Procedure Tolerated Well Tolerated Well -Debridement - Subq, 1st 20sq cm Yes Yes -Debridement, SubQ, ea addt'l 20sq cm 6 6 or part thereof Pain Scale: 0-10 Numeric Is Patient Pain Free? Yes Yes - Nurse 3 - General Ulcer D/C NN Start: 04/20/24 10:12 Freq: Status: Active Protocol: Activity Type Activity Date Activity User E-sign Co-sign Detail Recorded Client Recorded Date Recorded By Document 04/20/24 11:31 KW ' 04/20/24 11:31 KW 04/20/24 11:31 Wound Care Center Nurse 3 #18 Left medial LE cluster -Other Dressing HYDROGEL -Primary Dressing Covered/Secured with Dry Gauze & Roll Gauze, Secured with Tape Right -Compression Wrap Kate Wrap -Tubular Bandage Single Layer -Size of Tubigrip Used Size E -Size E ($) 1 Left -Compression Wrap Kate Wrap -Tubular Bandage Single Layer -Size of Tubigrip Used Size E -Size E ($) 1 Pain Scale: 0-10 Numeric Is Patient Pain Free? Yes Assessment/Plan Assessment/Plan (1) Lymphedema: CODE(S): I89.0 - Lymphedema, not elsewhere classified (2) Hypertension: CODE(S): I10 - Essential (primary) hypertension QUALIFIERS: Hypertension type: primary hypertension Qualified Code(s): I10 - Essential (primary) hypertension (3) Hyperlipidemia: CODE(S): E78.5 - Hyperlipidemia, unspecified QUALIFIERS: Hyperlipidemia type: mixed hyperlipidemia Qualified Code(s): E78.2 - Mixed hyperlipidemia (4) History of DVT (deep vein thrombosis): CODE(S): Z86.718 - Personal history of other venous thrombosis and embolism (5) Venous insufficiency (chronic) (peripheral): CODE(S): I87.2 - Venous insufficiency (chronic) (peripheral) (6) Venous ulcer of left lower extremity with varicose veins: CODE(S): I83.029 - Varicose veins of left lower extremity with ulcer of unspecified site (7) Edema: CODE(S): R60.9 - Edema, unspecified QUALIFIERS: Edema type: unspecified Qualified Code(s): R60.9 - Edema, unspecified PLAN: Plan Evaluation and debridement of left medial LE ulcer performed today in clinic as annotated above. At home wound-care instructions: Will have him continue to apply hydrogel daily and wet to dry dressings and cover with gauze. If his ulcers are dry then would decrease frequency of changes to every other day. Continue compression with F tubigrips b/l. Due to the delayed progress in wound healing of his venous ulcers, we discussed applying for advanced wound healing product for healing his ulcer. Due to the size of his ulcer, Theraskin application approval is being requested from his insurance as it is medically necessary for salvaging his limb and healing his ulcer. He underwent 2 applications of Theraskin to this ulcer. Since application of Theraskin he has had much improvement in epithelialization of his ulcer even though the overall size is not significantly changed there is progress. Off-loading: The patient was instructed to avoid pressure and friction on the affected areas. Reposition every 2 hours at minimum. Avoid prolonged standing and/or dangling of legs. When seated, feet should be elevated at chest level. Frequent ambulation is encouraged. Encouraged lymphedema pump use. Diet: Patient encouraged to increase protein intake while taking caution to avoid high carbohydrate and/or sugar intake. Labs/cultures/imaging: Wound culture showed 1+ Pseudomonas that is sensitive to Levofloxacin and completed treatment on 08/16/23. Follow-up: Return in 1 week for wound care follow up and have secondary dressing changed by home health Tuesday and Tuesday. Return sooner or report to the emergency room should symptoms worsen, or new symptoms arise. Note: [employer] speech recognition photographer assistant software was used to create portions of this document. Sound-alike and misspelled words, as well as other photographer assistant errors may be contained in the documentation.
[2024-05-04 10:12] VITALS: BP 133/73; PULSE 61; RESP 18; TEMP 35.5
--- NOTE | 2024-05-04 13:43 | PCM.WC.PN ---
History of Present Illness Date of Service: 05/04/24 Chief Complaint: venous ulcers of left lower extremity History of Wound: Mauricio is a 68 yo gentleman who is here today for evaluation of ulcers to to his bilateral lower legs. He has been treated multiple times in the past at the wound healing center for similar ulcers. The left LE ulcer started after he developed increased swelling and blisters of left leg in October and the right leg started sometime at the end of October. He was seen at PCP's office a culture was taken and it was resistant to several antibiotics. He was treated initially with Levaquin but had myalgias and then was treated with doxycycline which he finished 2 days ago. He denies improvement and is having swelling to his left calf and thigh. He has been having swelling to both lower extremities for many years and it has worsened over the last few months. He has not been compliant with compression. He has had increased pain especially in the left leg. He has clear yellow drainage and redness without odor or warmth. He is anti-coagulated on coumadin. He has been washing with Dial soap and witch ifrah. He had been using Collagen at times and using Calcium Alginate and covering with ABD pads during October. He was treated with 3M compression and Aquacel Ag. He was referred to the wound center for ongoing treatment. His ulcers have moderate to heavy drainage. He was recently hospitalized for cellulitis and edema for the last 10 days. He was in the hospital from 11/30/22 until 12/09/22 for treatment of cellulitis and edema. He underwent treatment with Vancomycin and IV lasix and compression. Discharged on 12/09/22. He returned to his assisted living apartment on Tuesday12/21/22. Subjective Subjective Mauricio is a 68-year-old male with longstanding history of chronic venous ulceration to the left lower extremity. He has been using hydrogel and wet to dry dressings. There has been improvement in his ulcer overall. He reports continued decreased drainage. He is using MARCIO and size F Tubigrips for compression. 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 He continues to use his lymphedema pumps but continues to have pain with use of these pumps. Objective Data Objective Data Vital Signs: Vital Signs Temp Pulse Resp BP O2 Del Method 96 F L 61 18 133/73 H Room Air 05/04/24 10:12 05/04/24 10:12 05/04/24 10:12 05/04/24 10:12 04/27/24 10:04 Oxygen Delivery Method Room Air Physical Exam Const alert, oriented x3 and no apparent distress General Appearance: cooperative and comfortable HEENT normocephalic and head/scalp atraumatic Lymph Lymphatic: lymphedema moderate Resp normal respiratory effort Effort and Inspection: able to speak in complete sentences Cardio regular rate and regular rhythm Extremity General Extremity: edema bilateral lower extremity Details: severe Skin Wounds: wounds noted Wound Narrative: as in clinical panel Psych mental status grossly normal, thought process normal, cooperative and affect normal Debridement Note Debridement Note Wound debrided: left medial LE ulcer Laterality: Left Type of Debridement: Excisional debridement Anesthesia Used: 5% Lidocaine Gel Depth: Down to and including healthy tissue and in the subcutaneous layer Percentage of wound debrided: 100 Instrument Used: 5mm curette Tissue Removed: yellow slough, devitalized tissue Severity: Fat Layer Exposed Amount of bleeding with debridement: Mild Bleeding Controlled with: Compression and gauze Patient tolerated procedure: Patient tolerated procedure well Post-Debridement Measurements and Additional Note: Post-Debridement Measurements/Treatment - Nurse 1 - General Ulcer Assessment Start: 04/20/24 10:12 Freq: Status: Active Protocol: ONDINA Activity Type Activity Date Activity User E-sign Co-sign Detail Recorded Client Recorded Date Recorded By Document 04/20/24 10:12 KW ' 04/20/24 10:22 KW Document 04/27/24 10:04 KW l 04/27/24 10:12 KW Document 05/04/24 10:12 RB wound 05/04/24 10:15 RB 04/20/24 04/27/24 05/04/24 10:12 10:04 10:12 - Today's Visit Information Type of service Follow-up Visit Follow-up Visit Follow-up Visit (Physician/[employer] (Physician/[employer] (Physician/[employer] ) ) ) Arrival Mode Ambulatory, Ambulatory, Ambulatory, Walker Walker Walker Transfer Assistance None Patient Identification Verified (Name & Yes Yes Yes ) Patient Requires Transmission-Based No Precautions Vital Signs Temperature (97.8 F-99.1 F) 97.2 F L 96.2 F L 96 F L Temperature Source Temporal Temporal Temporal Pulse Rate (60-100) 65 61 61 Pulse Location Monitor Monitor Monitor Respiratory Rate (12-18) 18 18 18 Respiratory rate source Observation Observation Observation Oxygen Delivery Method Room Air Room Air Blood Pressure (90/60-120/80) 120/74 124/73 H 133/73 H Blood Pressure Mean (mm Hg) 89 90 93 Source Monitor Monitor Monitor Position Semi-Fowlers Semi-Fowlers Semi-Fowlers Blood Pressure Location Right Arm Left Arm Left Arm History Since Last Visit- (Skip if this is Patient's initial visit) Have you changed medications since your No No No last visit? Any new allergies or adverse reactions No No No Had a fall/change in ADL's that may No No No increase risk of falls Signs or symptoms of abuse and/or No No No neglect since last visit Have you been in the hospital since your No No No last visit? Has dressing in place as prescribed Yes Yes Yes Has compression in place as prescribed Yes Yes Yes Has offloadiing in place as prescribed N/A N/A No Experienced any changes in pain level or No No No management Left Footwear Regular Shoe Regular Shoe Right Footwear Regular Shoe Regular Shoe Pain Scale: 0-10 Numeric Is Patient Pain Free? Yes Yes No LLE -Description Aching -Intensity 8 -Pain Behavior Withdrawal from Touch -Pain Aggravating Factors Debridement -Alleviating Factors/Interventions Medication -Effectiveness of Alleviating Factor/ Moderately Intervention effective WC - Nurse 1 - General Ulcer Measurement Start: 04/20/24 10:12 Freq: Status: Active Protocol: Activity Type Activity Date Activity User E-sign Co-sign Detail Recorded Client Recorded Date Recorded By Document 04/20/24 10:12 KW ' 04/20/24 10:22 KW Document 04/27/24 10:04 KW l 04/27/24 10:12 KW Document 05/04/24 10:12 RB wound 05/04/24 10:15 RB Edit Result 05/04/24 10:12 RB (1) wound 05/04/24 10:16 RB (1) #18 Left medial LE cluster - Current Size (cm) - Length 17 => 7.5 - Current Size (cm) - Width 7.5 => 17 04/20/24 04/27/24 05/04/24 10:12 10:04 10:12 Wound Center Nurse 1 #18 Left medial LE cluster -Combined with other wound No -Current Size (cm) - Length 8.3 7.5 7.5 -Current Size (cm) - Width 17.5 18.2 17 -Current Size (cm) - Depth 0.1 0.2 0.1 -Total Square Cm 145.25 136.50 127.5 -Date of Last Picture (Recall this 04/20/24 field) -Epithelialization Medium 34-66% Medium 34-66% -Tunneling No -Undermining/Tunneling No -Circular Undermining No -Exudate Amt Small Small Large -Exudate Type Serosanguineous Serosanguineous Serosanguineous -Wound Margin Distinct, Distinct, Distinct, Outline Outline Outline Attached Attached Attached -Granulation Amt Large (67-100%) Large (67-100%) Medium (34-66%) -Granulation Quality [place] -Slough/Fibrin Yes -Necrosis Amt Large (67-100%) -Necrotic Tissue Type Adherent Slough -Structure Exposed N/A -Texture (Marie-wound Skin Appearance) Assessed Assessed Assessed, Scarring -Moisture (Marie-wound Skin Appearance) Assessed,Dry/ Assessed Assessed Scaly -Color (Marie-wound Skin Appearance) Assessed Assessed Assessed -Temperature (Marie-wound Skin No Abnormality No Abnormality No Abnormality Appearance) (Pt Warm) (Pt Warm) (Pt Warm) -Tenderness on Palpation (Marie-wound No No No Skin Appearance) -Ulcer Cleansing Rinsed/ Soap and Water Wound Cleanser Irrigated with Saline -Foul Odor after Cleansing No No No -Anesthetic Used 5% Lidocaine 5% Lidocaine 5% Lidocaine Gel Gel Gel Lower Limb Edema Present Yes Left Calf (cm) 42.2 42.5 45 Left Ankle (cm) 29 28.6 - Nurse 2 - General Ulcer CM Notes Start: 04/20/24 10:12 Freq: Status: Active Protocol: Activity Type Activity Date Activity User E-sign Co-sign Detail Recorded Client Recorded Date Recorded By Document 04/20/24 10:36 [facility] 04/20/24 10:42 Document 04/27/24 10:30 [facility] 04/27/24 10:46 Document 05/04/24 10:23 [facility] 10.10.25.7 05/04/24 10:39 [facility] 04/20/24 04/27/24 05/04/24 10:36 10:30 10:23 Wound Center Nurse 2 #18 Left medial LE cluster -Time 10:36 10:36 10:24 -Correct Patient Yes Yes Yes -Correct Side, Site, Position Yes Yes Yes -Correct Procedure Yes Yes Yes -Procedure Performed Yes Yes Yes -Type of Procedure Debridement Debridement Debridement -Clinical Debridement Subcutaneous Subcutaneous Subcutaneous -Tissue Removed Subcutaneous Subcutaneous Subcutaneous -Post Debridement (cm) - Length 8.3 8.1 8.0 -Post Debridement (cm) - Width 16 16.5 16.0 -Post Debridement (cm) - Depth 0.1 0.1 0.1 -Total Square (Post) (cm) 132.8 133.65 128.00 -Area of Debridement (cm) - Length 8.3 8.1 8.0 -Area of Debridement (cm) - Width 16 16.5 16.0 -Total Square (Area) (cm) 132.8 133.65 128.00 -Tunneling No No No -Undermining/Tunneling No No No -Circular Undermining No No No -Wound/Ulcer Outcome Not Healed Not Healed Not Healed -Ulcer Cleansing Wound Cleanser Rinsed/ Rinsed/ Irrigated with Irrigated with Saline Saline -Foul Odor after Cleansing No No No -Bioengineered Tissue No No No -Bleeding Controlled with Pressure Pressure Pressure -Treatment Response Procedure Procedure Procedure Tolerated Well Tolerated Well Tolerated Well -Debridement - Subq, 1st 20sq cm Yes Yes Yes -Debridement, SubQ, ea addt'l 20sq cm 6 6 6 or part thereof Pain Scale: 0-10 Numeric Is Patient Pain Free? Yes Yes Yes WC - Nurse 3 - General Ulcer D/C NN Start: 04/20/24 10:12 Freq: Status: Active Protocol: Activity Type Activity Date Activity User E-sign Co-sign Detail Recorded Client Recorded Date Recorded By Document 04/20/24 11:31 KW ' 04/20/24 11:31 KW Document 04/27/24 11:16 KW l 04/27/24 11:17 KW Document 05/04/24 11:12 DS 1 05/04/24 11:13 DS 04/20/24 04/27/24 05/04/24 11:31 11:16 11:12 Wound Care Center Nurse 3 #18 Left medial LE cluster -Primary Dressing Applied C Hydrogel ($) -Other Dressing HYDROGEL HYDROGEL -Primary Dressing Covered/Secured with Dry Gauze & Dry Gauze & Dry Gauze & Roll Gauze, Roll Gauze, Roll Gauze, Secured with Secured with Secured with Tape Tape Tape Right -Compression Wrap Marcio Wrap -Tubular Bandage Single Layer -Size of Tubigrip Used Size E -Size E ($) 1 Left -Compression Wrap Marcio Wrap Marcio Wrap -Tubular Bandage Single Layer Single Layer Single Layer -Size of Tubigrip Used Size E Size F Size F -Size E ($) 1 -Size F ($) 1 1 -Other [place] Pain Scale: 0-10 Numeric Is Patient Pain Free? Yes Yes Yes WC - Visit Discharge Discharge Condition Stable Ambulatory Status Ambulatory, Walker Transportation Private Auto Medication Reconcilliation completed & Yes provided to patient/care provider Clinical Summary of Care Provided Yes Assessment/Plan Assessment/Plan (1) Lymphedema: CODE(S): I89.0 - Lymphedema, not elsewhere classified (2) Hypertension: CODE(S): I10 - Essential (primary) hypertension QUALIFIERS: Hypertension type: primary hypertension Qualified Code(s): I10 - Essential (primary) hypertension (3) Hyperlipidemia: CODE(S): E78.5 - Hyperlipidemia, unspecified QUALIFIERS: Hyperlipidemia type: mixed hyperlipidemia Qualified Code(s): E78.2 - Mixed hyperlipidemia (4) History of DVT (deep vein thrombosis): CODE(S): Z86.718 - Personal history of other venous thrombosis and embolism (5) Venous insufficiency (chronic) (peripheral): CODE(S): I87.2 - Venous insufficiency (chronic) (peripheral) (6) Venous ulcer of left lower extremity with varicose veins: CODE(S): I83.029 - Varicose veins of left lower extremity with ulcer of unspecified site (7) Edema: CODE(S): R60.9 - Edema, unspecified QUALIFIERS: Edema type: unspecified Qualified Code(s): R60.9 - Edema, unspecified PLAN: Plan Evaluation and debridement of left medial LE ulcer performed today in clinic as annotated above. At home wound-care instructions: Will have him continue to apply hydrogel daily and wet to dry dressings and cover with gauze. If his ulcers are dry then would decrease frequency of changes to every other day. Continue compression with F tubigrips b/l. Due to the delayed progress in wound healing of his venous ulcers, we discussed applying for advanced wound healing product for healing his ulcer. Due to the size of his ulcer, Theraskin application approval is being requested from his insurance as it is medically necessary for salvaging his limb and healing his ulcer. He underwent 2 applications of Theraskin to this ulcer. Since application of Theraskin he has had much improvement in epithelialization of his ulcer even though the overall size is not significantly changed there is progress. Off-loading: The patient was instructed to avoid pressure and friction on the affected areas. Reposition every 2 hours at minimum. Avoid prolonged standing and/or dangling of legs. When seated, feet should be elevated at chest level. Frequent ambulation is encouraged. Encouraged lymphedema pump use. Diet: Patient encouraged to increase protein intake while taking caution to avoid high carbohydrate and/or sugar intake. Labs/cultures/imaging: Wound culture showed 1+ Pseudomonas that is sensitive to Levofloxacin and completed treatment on 08/16/23. Follow-up: Return in 2 weeks for wound care follow up and have secondary dressing changed by home health Tuesday and Tuesday. He is having prostate biopsy next Tuesday. Return sooner or report to the emergency room should symptoms worsen, or new symptoms arise. Note: [employer]is speech recognition nutrition manager software was used to create portions of this document. Sound-alike and misspelled words, as well as other nutrition manager errors may be contained in the documentation.
== END 2024-05-09 23:59 | disposition home or self-care (01) ==
LOC: WC 10:00
PROVIDERS: PCP Family Medicine; Referring Provider Family Medicine; Visit Provider Family Medicine
DX: I83.029 Varicose veins of left lower extremity with ulcer of unspecified site (principal); L97.922 Non-pressure chronic ulcer of unspecified part of left lower leg with fat layer exposed; M79.605 Pain in left leg; Z86.718 Personal history of other venous thrombosis and embolism; M79.10 Myalgia, unspecified site; I89.0 Lymphedema, not elsewhere classified; I10 Essential (primary) hypertension; E78.5 Hyperlipidemia, unspecified; R60.9 Edema, unspecified
CPT/HCPCS: 11042; 11045

== ENCOUNTER → 2024-05-14 | Outpatient (CLI) | payer MEDICARE, OTHER, SELFPAY ==
--- NOTE | 2024-05-14 | IMM_PTH ---
PATIENT: ESTEBAN URBINA LOC: [facility] U#:[id number] AGE/SX: 68/M ROOM: RE05/14/[address]: Dr. Sergio Head MD : 1955 BED: DIS: 05/14/2024 SPEC #: [id number] RECD: 05/16/24 12:01 STATUS: JAY REQ #: [id number] EDUARDO: 05/14/24 00:[address]: Sergio Head DEPT: IMMUNOHISTOCHEMISTRY RECD BY: Marshall Torres ENTERED: 05/16/24 12:03 SP TYPE: IMMUNO OTHR DR: Dr. Patricia Garcia DO Tissues: A - PROSTATE RIGHT B - PROSTATE RIGHT C - PROSTATE RIGHT E - PROSTATE LEFT Procedures: 34BE12 (add) P40 (add) P40 (initial) PHYSICIAN & INSTITUTION [place] [id number] SPECIMEN INFORMATION: Tissue Source: A- right base, B- right mid, C- right apex, E- left mid Clinical Info: Elevated PSA Specimen Number: [id number] A,B, C, E CPT code: 77826,10271p8 METHODOLOGY: Deparaffinized sections of prefer/formalin-fixed tissue or PAP/DQ stained slides are incubated with monoclonal/polyclonal antibodies/oligonucleotide probes. Localization is made via biotin free immunoperoxidase method. Appropriate controls are performed and reacted as expected. Results on target cell population are indicated in the following table: RESULTS: ANTIBODY / CLONE RESULT Block A P40 (BC28) positive 34BE12 (34BE12) positive Block B P40 (BC28) negative 34BE12 (34BE12) negative Block C P40 (BC28) negative 34BE12 (34BE12) negative Block E P40 (BC28) negative 34BE12 (34BE12) negative These tests were developed and their performance characteristics determined by [facility]. They may not have been cleared or approved by the U.S. Food and Drug Administration. The FDA has determined that such clearance or approval is not necessary. The above immunohistochemical/dualISH markers are ordered and reviewed by the Pathologist. INTERPRETATION: A. Prostate, right base, core biopsy: Negative for malignancy. B. Prostate, right mid, core biopsy: Adenocarcinoma. C. Prostate, right apex, core biopsy: Adenocarcinoma. E. Prostate, left mid, core biopsy: Adenocarcinoma. PRISCILA/ 05/17/2024
--- NOTE | 2024-05-14 | PROSBIL_PTH ---
PATIENT: ESTEBAN URBINA LOC: [facility] U#:[id number] AGE/SX: 68/M ROOM: RE05/14/[address]: Dr. Sergio Head MD : 1955 BED: DIS: 05/14/2024 SPEC #: [id number] RECD: 05/15/24 10:50 STATUS: JAY PALAK #: [id number] EDUARDO: 05/14/24 00:[address]: Sergio Head DEPT: SURGICAL PATHOLOGY RECD BY: Antoinette Causey ENTERED: 05/15/24 10:51 SP TYPE: PROST BX TAYLER DR: Dr. Patricia Garcia, [facility] Tissues: A - PROSTATE RIGHT B - PROSTATE RIGHT C - PROSTATE RIGHT D - PROSTATE LEFT E - PROSTATE LEFT F - PROSTATE LEFT Procedures: PROSTATE BX HEADER OPERATION: Ultrasound guided prostate biopsy PRE-OP DIAGNOSIS: Elevated PSA TISSUE SUBMITTED: A - Right base, B - Right mid, C - Right apex, D - Left base, E - Left mid, F - Left apex MICROSCOPIC DIAGNOSIS A. Right prostate, base, core biopsy: Prostatic tissue, negative for malignancy. See comment. B. Right prostate, mid, core biopsy: Prostatic adenocarcinoma. [place] grade: 3+3=6 Number of cores involved: 2/2 Proportion of tissue involved: ~5 to 10% Perineural invasion: Not identified. Greatest tumor length: 0.2cm See comment. C. Right prostate, apex, core biopsy: Prostatic adenocarcinoma. Amy grade: 3+3=6 Number of cores involved: see comment. Proportion of tissue involved: ~40 % Perineural invasion: Not identified. Greatest tumor length: 0.6 cm See comment. D. Left prostate, base, core biopsy: Prostatic tissue, negative for malignancy. E. Left prostate, mid, core biopsy: Prostatic adenocarcinoma. Amy grade: 3+3=6 Number of cores involved: 1/ 2 Proportion of tissue involved: <5 % Perineural invasion: Not identified. Greatest tumor length: 0.1 cm See comment. F. Left prostate, apex, core biopsy: Prostatic tissue, negative for malignancy. Focal mild acute and chronic inflammation. SJ/mr 05/16/2024 COMMENT A, B, C, & E. Immunohistochemistry ([id number]) supports the above diagnosis. C. This specimen is fragmented during processing, number of cores involved by tumor cannot be assessed accurately. Case has been reviewed in consultation with Dr. Seymour who concurs with the above diagnosis. IDC:AM MICROSCOPIC DESCRIPTION Slides are reviewed. GROSS DESCRIPTION A - Received is one container designated prostate, right base. The specimen consists of two elongated fragments of light rodrigues-white soft tissue each measuring 1.5 cm in length and 0.1 cm in diameter. The specimen is totally submitted in one cassette. B - Received is one container designated prostate, right mid. The specimen consists of two elongated fragments of light rodrigues-white soft tissue each measuring 2.0 cm in length and 0.1 cm in diameter. The specimen is totally submitted in one cassette. C - Received is one container designated prostate, right apex. The specimen consists of two elongated fragments of light rodrigues-white soft tissue each measuring 1.5 cm in length and 0.1 cm in diameter. The specimen is totally submitted in one cassette. D - Received is one container designated prostate, left base. The specimen consists of two elongated fragments of light rodrigues-white soft tissue each measuring 2.0 cm in length and 0.1 cm in diameter. The specimen is totally submitted in one cassette. E - Received is one container designated prostate, left mid. The specimen consists of two elongated fragments of light rodrigues-white soft tissue measuring 1.5 and 2.0 cm in length and 0.1 cm in diameter. The specimen is totally submitted in one cassette. F - Received is one container designated prostate, left apex. The specimen consists of two elongated fragments of light rodrigues-white soft tissue measuring 1.3 and 1.5 cm in length and 0.1 cm in diameter. The specimen is totally submitted in one cassette. Valentine 05/15/2024 TC:0 CPT: G0146
== END | disposition home or self-care (01) ==
LOC: LABSPEC 15:26
PROVIDERS: PCP Family Medicine; Referring Provider Urology; Visit Provider Urology
DX: R97.20 Elevated prostate specific antigen [PSA] (principal)
CPT/HCPCS: 88305; 88341; 88342; G0416

== ENCOUNTER 2024-06-08 09:30 | Outpatient (RCR) | payer MEDICARE, OTHER, SELFPAY ==
[2024-05-10 00:16] VITALS: BP 114/57; PULSE 73; RESP 18; TEMP 36.4
[2024-05-18 09:35] VITALS: BP 131/73; PULSE 57; RESP 20; TEMP 36.4
[2024-06-08 09:31] VITALS: BP 121/69; PULSE 58; RESP 18; TEMP 35.6
--- NOTE | 2024-06-08 13:30 | PN.PCM_ITS ---
History of Present Illness Date of Service: 06/08/24 Chief Complaint: venous ulcers of left lower extremity History of Wound: Mauricio is a 68 yo gentleman who is here today for evaluation of ulcers to to his bilateral lower legs. He has been treated multiple times in the past at the wound healing center for similar ulcers. The left LE ulcer started after he developed increased swelling and blisters of left leg in October and the right leg started sometime at the end of October. He was seen at PCP's office a culture was taken and it was resistant to several antibiotics. He was treated initially with Levaquin but had myalgias and then was treated with doxycycline which he finished 2 days ago. He denies improvement and is having swelling to his left calf and thigh. He has been having swelling to both lower extremities for many years and it has worsened over the last few months. He has not been compliant with compression. He has had increased pain especially in the left leg. He has clear yellow drainage and redness without odor or warmth. He is anti- coagulated on coumadin. He has been washing with Dial soap and witch ifrah. He had been using Collagen at times and using Calcium Alginate and covering with ABD pads during October. He was treated with 3M compression and Aquacel Ag. He was referred to the wound center for ongoing treatment. His ulcers have moderate to heavy drainage. He was recently hospitalized for cellulitis and edema for the last 10 days. He was in the hospital from 11/30/22 until 12/09/22 for treatment of cellulitis and edema. He underwent treatment with Vancomycin and IV lasix and compression. Discharged on 12/09/22. He returned to his assisted living apartment on Tuesday12/21/22. Subjective Subjective Mauricio is a 68-year-old male with longstanding history of chronic venous ulceration to the left lower extremity. He has not been seen for 5 weeks due to vacations and moving locations and also having severe back pain last week which caused him to cancel his appointment. His edema is worse this week than when last seen and he has been taking compression off at night due to his back/leg pain. He has been using hydrogel and wet to dry dressings. There has been improvement in his ulcer overall. He reports continued decreased drainage. He is using KATE and size F Tubigrips for compression. 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 He continues to use his lymphedema pumps but continues to have pain with use of these pumps. Objective Data Objective Data Vital Signs: Vital Signs Temp Pulse Resp BP O2 Del Method 96.1 F L 58 L 18 121/69 H Room Air 06/08/24 09:31 06/08/24 09:31 06/08/24 09:31 06/08/24 09:31 06/08/24 09:31 Oxygen Delivery Method Room Air Physical Exam Const alert, oriented x3 and no apparent distress General Appearance: cooperative and comfortable HEENT normocephalic and head/scalp atraumatic Lymph Lymphatic: lymphedema moderate Resp normal respiratory effort Effort and Inspection: able to speak in complete sentences Cardio regular rate and regular rhythm Extremity General Extremity: edema bilateral lower extremity Details: severe Skin Wounds: wounds noted Wound Narrative: as in clinical panel Psych mental status grossly normal, thought process normal, cooperative and affect normal Debridement Note Debridement Note Wound debrided: Left medial LE cluster Laterality: Left Type of Debridement: Excisional debridement Anesthesia Used: 4% Lidocaine Solution, 5% Lidocaine Gel and Cetacaine Depth: Down to and including healthy tissue and in the subcutaneous layer Percentage of wound debrided: 100 Instrument Used: 7mm curette Tissue Removed: Yellow slough, devitalized tissue Severity: Fat Layer Exposed Amount of bleeding with debridement: Mild Bleeding Controlled with: Compression and gauze Patient tolerated procedure: Patient tolerated procedure well Post-Debridement Measurements and Additional Note: Post-Debridement Measurements/Treatment - Nurse 1 - General Ulcer Assessment Start: 05/18/24 09:35 Freq: Status: Active Protocol: ONDINA Activity Type Activity Date Activity User E-sign Co-sign Detail Recorded Client Recorded Date Recorded By Document 05/18/24 09:35 DL [id number] 05/18/24 10:00 DL Document 06/08/24 09:31 KW [id number] 06/08/24 09:36 KW 05/18/24 06/08/24 09:35 09:31 - Today's Visit Information Type of service Nurse-only Follow-up Visit Visit (Physician/[employer] ) Arrival Mode Ambulatory, Ambulatory, Walker Walker Transfer Assistance None Patient Identification Verified (Name & Yes Yes ) Patient Requires Transmission-Based No Precautions Vital Signs Temperature (97.8 F-99.1 F) 97.6 F L 96.1 F L Temperature Source Temporal Temporal Pulse Rate (60-100) 57 L 58 L Pulse Location Monitor Monitor Respiratory Rate (12-18) 20 H 18 Respiratory rate source Observation Observation Oxygen Delivery Method Room Air Blood Pressure (90/60-120/80) 131/73 H 121/69 H Blood Pressure Mean (mm Hg) 92 86 Source Monitor Monitor Position Semi-Fowlers Blood Pressure Location Right Arm History Since Last Visit- (Skip if this is Patient's initial visit) Have you changed medications since your No No last visit? Any new allergies or adverse reactions No No Had a fall/change in ADL's that may No No increase risk of falls Signs or symptoms of abuse and/or No No neglect since last visit Have you been in the hospital since your No No last visit? Has dressing in place as prescribed Yes Yes Has compression in place as prescribed Yes Yes Has offloadiing in place as prescribed N/A N/A Experienced any changes in pain level or No No management Left Footwear Regular Shoe Right Footwear Regular Shoe Pain Scale: 0-10 Numeric Is Patient Pain Free? Yes Yes WC - Nurse 1 - General Ulcer Measurement Start: 05/18/24 09:35 Freq: Status: Active Protocol: Activity Type Activity Date Activity User E-sign Co-sign Detail Recorded Client Recorded Date Recorded By Document 05/18/24 09:35 DL [id number] 05/18/24 10:00 DL Document 06/08/24 09:31 KW [id number] 06/08/24 09:36 KW 05/18/24 06/08/24 09:35 09:31 Wound Center Nurse 1 #18 Left medial LE cluster -Current Size (cm) - Length 9 -Current Size (cm) - Width 19.5 -Current Size (cm) - Depth 0.2 -Total Square Cm 175.5 -Exudate Amt Medium Medium -Exudate Type Serosanguineous Serosanguineous -Wound Margin Distinct, Outline Attached -Granulation Amt Large (67-100%) Large (67-100%) -Granulation Quality Red Red -Necrosis Amt None Present (0 Small (1-33%) %) -Necrotic Tissue Type Adherent Slough -Structure Exposed N/A -Texture (Marie-wound Skin Appearance) Scarring Assessed -Moisture (Marie-wound Skin Appearance) No Abnormality Assessed -Color (Marie-wound Skin Appearance) No Abnormality Assessed -Temperature (Marie-wound Skin No Abnormality No Abnormality Appearance) (Pt Warm) (Pt Warm) -Tenderness on Palpation (Marie-wound No Skin Appearance) -Ulcer Cleansing Soap and Water Rinsed/ Irrigated with Saline -Foul Odor after Cleansing No -Anesthetic Used 5% Lidocaine Gel Left Calf (cm) 44 Left Ankle (cm) 28.5 47.5 Left Foot (cm) 31 WC - Nurse 2 - General Ulcer CM Notes Start: 05/18/24 09:35 Freq: Status: Active Protocol: Activity Type Activity Date Activity User E-sign Co-sign Detail Recorded Client Recorded Date Recorded By Document 06/08/24 10:47 GM [id number] 06/08/24 11:06 06/08/24 10:47 Wound Center Nurse 2 #18 Left medial LE cluster -Time 10:48 -Correct Patient Yes -Correct Side, Site, Position Yes -Correct Procedure Yes -Procedure Performed Yes -Type of Procedure Debridement -Clinical Debridement Subcutaneous -Tissue Removed Subcutaneous -Post Debridement (cm) - Length 8.8 -Post Debridement (cm) - Width 16.5 -Post Debridement (cm) - Depth 0.1 -Total Square (Post) (cm) 145.20 -Area of Debridement (cm) - Length 8.8 -Area of Debridement (cm) - Width 16.5 -Total Square (Area) (cm) 145.20 -Tunneling No -Undermining/Tunneling No -Circular Undermining No -Wound/Ulcer Outcome Not Healed -Ulcer Cleansing Rinsed/ Irrigated with Saline -Foul Odor after Cleansing No -Bioengineered Tissue No -Bleeding Controlled with Pressure -Treatment Response Procedure Tolerated Well -Debridement - Subq, 1st 20sq cm Yes -Debridement, SubQ, ea addt'l 20sq cm 4 or part thereof Pain Scale: 0-10 Numeric Is Patient Pain Free? Yes WC - Nurse 3 - General Ulcer D/C NN Start: 05/18/24 09:35 Freq: Status: Active Protocol: Activity Type Activity Date Activity User E-sign Co-sign Detail Recorded Client Recorded Date Recorded By Document 05/18/24 09:35 DL [email or web address] 05/18/24 10:00 DL Document 06/08/24 11:47 RB [id number] 06/08/24 11:50 RB 05/18/24 06/08/24 09:35 11:47 Vital Signs Temperature (97.8 F-99.1 F) 97.6 F L Temperature Source Temporal Pulse Rate (60-100) 57 L Pulse Location Monitor Respiratory Rate (12-18) 20 H Respiratory rate source Observation Blood Pressure (90/60-120/80) 131/73 H Blood Pressure Mean (mm Hg) 92 Source Monitor Pain Scale: 0-10 Numeric Is Patient Pain Free? Yes Yes Wound Care Center Nurse 3 #18 Left medial LE cluster -Ulcer Cleansing Soap and Water Rinsed/ Irrigated with Saline -Foul Odor after Cleansing No -Other Dressing nugel - W/D hydrogel / abd gauze -Primary Dressing Covered/Secured with Dry Gauze & Dry Gauze,Dry Roll Gauze, Gauze & Roll Secured with Gauze,Secured Tape with Tape -Other Covering Tubigrip and kate -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) kate Left -Other kate Treatment Response Procedure Tolerated Well WC - Visit Discharge Discharge Condition Stable Ambulatory Status Ambulatory, Walker Transportation Private Auto Medication Reconcilliation completed & No provided to patient/care provider Clinical Summary of Care Provided Yes Assessment/Plan Assessment/Plan (1) Lymphedema: CODE(S): I89.0 - Lymphedema, not elsewhere classified (2) Hypertension: CODE(S): I10 - Essential (primary) hypertension QUALIFIERS: Hypertension type: primary hypertension Qualified Code(s): I10 - Essential (primary) hypertension (3) Hyperlipidemia: CODE(S): E78.5 - Hyperlipidemia, unspecified QUALIFIERS: Hyperlipidemia type: mixed hyperlipidemia Qualified Code(s): E78.2 - Mixed hyperlipidemia (4) History of DVT (deep vein thrombosis): CODE(S): Z86.718 - Personal history of other venous thrombosis and embolism (5) Venous insufficiency (chronic) (peripheral): CODE(S): I87.2 - Venous insufficiency (chronic) (peripheral) (6) Venous ulcer of left lower extremity with varicose veins: CODE(S): I83.029 - Varicose veins of left lower extremity with ulcer of unspecified site (7) Edema: CODE(S): R60.9 - Edema, unspecified QUALIFIERS: Edema type: unspecified Qualified Code(s): R60.9 - Edema, unspecified PLAN: Plan Evaluation and debridement of left medial LE ulcer performed today in clinic as annotated above. At home wound-care instructions: Will have him continue to apply hydrogel daily and wet to dry dressings and cover with gauze. If his ulcers are dry then would decrease frequency of changes to every other day. Continue compression with F tubigrips b/l. Due to the delayed progress in wound healing of his venous ulcers, we discussed applying for advanced wound healing product for healing his ulcer. Due to the size of his ulcer, Theraskin application approval is being requested from his insurance as it is medically necessary for salvaging his limb and healing his ulcer. He underwent 2 applications of Theraskin to this ulcer. Since application of Theraskin he has had much improvement in epithelialization of his ulcer even though the overall size is not significantly changed there is progress. Off-loading: The patient was instructed to avoid pressure and friction on the affected areas. Reposition every 2 hours at minimum. Avoid prolonged standing and/or dangling of legs. When seated, feet should be elevated at chest level. Frequent ambulation is encouraged. Encouraged lymphedema pump use. Diet: Patient encouraged to increase protein intake while taking caution to avoid high carbohydrate and/or sugar intake. Labs/cultures/imaging: Wound culture showed 1+ Pseudomonas that is sensitive to Levofloxacin and completed treatment on 08/16/23. Follow-up: Return in 1 week for wound care follow up and have secondary dressing changed by home health Tuesday and Tuesday. Return sooner or report to the emergency room should symptoms worsen, or new symptoms arise. Note: [employer] speech recognition rocket assembly operator software was used to create portions of this document. Sound-alike and misspelled words, as well as other rocket assembly operator errors may be contained in the documentation.
--- NOTE | 2024-06-13 10:02 | WC ---
PHOTO 06/08/24 SEEMA
== END 2024-06-09 23:59 | disposition home or self-care (01) ==
LOC: WC 09:30
PROVIDERS: PCP Family Medicine; Referring Provider Family Medicine; Visit Provider Family Medicine
DX: I83.028 Varicose veins of left lower extremity with ulcer other part of lower leg (principal); L97.822 Non-pressure chronic ulcer of other part of left lower leg with fat layer exposed; I89.0 Lymphedema, not elsewhere classified; Z86.718 Personal history of other venous thrombosis and embolism; M79.605 Pain in left leg; I10 Essential (primary) hypertension; I87.2 Venous insufficiency (chronic) (peripheral); R60.9 Edema, unspecified; E78.2 Mixed hyperlipidemia
CPT/HCPCS: 11042; 11045

== ENCOUNTER 2024-07-06 09:30 | Outpatient (RCR) | payer MEDICARE, OTHER, SELFPAY ==
[2024-06-10 00:42] VITALS: BP 114/57; PULSE 73; RESP 18; TEMP 36.4
[2024-06-15 10:05] VITALS: BP 117/58; PULSE 70; RESP 18; TEMP 36.1
--- NOTE | 2024-06-15 15:20 | PCM.WC.PN ---
History of Present Illness Date of Service: 06/15/24 Chief Complaint: venous ulcers of left lower extremity History of Wound: Mauricio is a 68 yo gentleman who is here today for evaluation of ulcers to to his bilateral lower legs. He has been treated multiple times in the past at the wound healing center for similar ulcers. The left LE ulcer started after he developed increased swelling and blisters of left leg in October and the right leg started sometime at the end of October. He was seen at PCP's office a culture was taken and it was resistant to several antibiotics. He was treated initially with Levaquin but had myalgias and then was treated with doxycycline which he finished 2 days ago. He denies improvement and is having swelling to his left calf and thigh. He has been having swelling to both lower extremities for many years and it has worsened over the last few months. He has not been compliant with compression. He has had increased pain especially in the left leg. He has clear yellow drainage and redness without odor or warmth. He is anti-coagulated on coumadin. He has been washing with Dial soap and witch ifrah. He had been using Collagen at times and using Calcium Alginate and covering with ABD pads during October. He was treated with 3M compression and Aquacel Ag. He was referred to the wound center for ongoing treatment. His ulcers have moderate to heavy drainage. He was recently hospitalized for cellulitis and edema for the last 10 days. He was in the hospital from 11/30/22 until 12/09/22 for treatment of cellulitis and edema. He underwent treatment with Vancomycin and IV lasix and compression. Discharged on 12/09/22. He returned to his assisted living apartment on Tuesday12/21/22. Subjective Subjective Mauricio is a 68-year-old male with longstanding history of chronic venous ulceration to the left lower extremity. He has had increased drainage this week. His edema is worse this week and he has been using ABDs and not wet to dry dressings. There has been worsening in his ulcer overall. He is using KATE and size F Tubigrips for compression. 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 He continues to use his lymphedema pumps but continues to have pain with use of these pumps. Objective Data Objective Data Vital Signs: Vital Signs Temp Pulse Resp BP 97 F L 70 18 117/58 L 06/15/24 10:05 06/15/24 10:05 06/15/24 10:05 06/15/24 10:05 Physical Exam Const alert, oriented x3 and no apparent distress General Appearance: cooperative and comfortable HEENT normocephalic and head/scalp atraumatic Lymph Lymphatic: lymphedema moderate Resp normal respiratory effort Effort and Inspection: able to speak in complete sentences Cardio regular rate and regular rhythm Extremity General Extremity: edema bilateral lower extremity Details: severe Skin Wounds: wounds noted Wound Narrative: as in clinical panel Psych mental status grossly normal, thought process normal, cooperative and affect normal Debridement Note Debridement Note Wound debrided: Left medial LE cluster Laterality: Left Type of Debridement: Excisional debridement Anesthesia Used: 4% Lidocaine Solution, 5% Lidocaine Gel and Cetacaine Depth: Down to and including healthy tissue and in the subcutaneous layer Percentage of wound debrided: 100 Instrument Used: 7mm curette Tissue Removed: Yellow slough, devitalized tissue Severity: Fat Layer Exposed Amount of bleeding with debridement: Mild Bleeding Controlled with: Compression and gauze Patient tolerated procedure: Patient tolerated procedure well Post-Debridement Measurements and Additional Note: Post-Debridement Measurements/Treatment - Nurse 1 - General Ulcer Assessment Start: 06/15/24 10:05 Freq: Status: Active Protocol: [email or web address] Activity Type Activity Date Activity User E-sign Co-sign Detail Recorded Client Recorded Date Recorded By Document 06/15/24 10:05 ARPIT [id number] 06/15/24 10:07 ARPIT 06/15/24 10:05 - Today's Visit Information Type of service Follow-up Visit (Physician/[employer] ) Arrival Mode Ambulatory Transfer Assistance None Patient Identification Verified (Name & Yes ) Patient Requires Transmission-Based No Precautions Vital Signs Temperature (97.8 F-99.1 F) 97 F L Temperature Source Temporal Pulse Rate (60-100) 70 Pulse Location Monitor Respiratory Rate (12-18) 18 Respiratory rate source Observation Blood Pressure (90/60-120/80) 117/58 L Blood Pressure Mean (mm Hg) 77 Source Monitor Position Semi-Fowlers Blood Pressure Location Left Arm History Since Last Visit- (Skip if this is Patient's initial visit) Have you changed medications since your No last visit? Any new allergies or adverse reactions No Had a fall/change in ADL's that may No increase risk of falls Signs or symptoms of abuse and/or No neglect since last visit Have you been in the hospital since your No last visit? Has dressing in place as prescribed Yes Has compression in place as prescribed Yes Has offloadiing in place as prescribed No Experienced any changes in pain level or No management Pain Scale: 0-10 Numeric Is Patient Pain Free? Yes WC - Nurse 1 - General Ulcer Measurement Start: 06/15/24 10:05 Freq: Status: Active Protocol: Activity Type Activity Date Activity User E-sign Co-sign Detail Recorded Client Recorded Date Recorded By Document 06/15/24 10:05 RB [id number] 06/15/24 10:07 RB 06/15/24 10:05 Wound Center Nurse 1 #18 Left medial LE cluster -Combined with other wound No -Current Size (cm) - Length 8.5 -Current Size (cm) - Width 19 -Current Size (cm) - Depth 0.1 -Total Square Cm 161.5 -Photo Taken Yes -Tunneling No -Undermining/Tunneling No -Circular Undermining No -Exudate Amt Medium -Exudate Type Serosanguineous -Wound Margin Distinct, Outline Attached -Granulation Amt Medium (34-66%) -Granulation Quality [place] -Slough/Fibrin Yes -Necrosis Amt Medium (34-66%) -Necrotic Tissue Type Adherent Slough -Structure Exposed N/A -Texture (Marie-wound Skin Appearance) Assessed -Moisture (Marie-wound Skin Appearance) Assessed -Color (Marie-wound Skin Appearance) Assessed, Hemosiderin Staining -Temperature (Marie-wound Skin No Abnormality Appearance) (Pt Warm) -Tenderness on Palpation (Marie-wound No Skin Appearance) -Ulcer Cleansing Wound Cleanser -Foul Odor after Cleansing No -Anesthetic Used 5% Lidocaine Gel Lower Limb Edema Present Yes Left Calf (cm) 46 Left Ankle (cm) 32.5 - Nurse 2 - General Ulcer CM Notes Start: 06/15/24 10:05 Freq: Status: Active Protocol: Activity Type Activity Date Activity User E-sign Co-sign Detail Recorded Client Recorded Date Recorded By Document 06/15/24 10:24 [id number] 06/15/24 10:38 06/15/24 10:24 Wound Center Nurse 2 #18 Left medial LE cluster -Time 10:24 -Correct Patient Yes -Correct Side, Site, Position Yes -Correct Procedure Yes -Procedure Performed Yes -Type of Procedure Debridement -Clinical Debridement Subcutaneous -Tissue Removed Subcutaneous -Post Debridement (cm) - Length 9.5 -Post Debridement (cm) - Width 17.3 -Post Debridement (cm) - Depth 0.2 -Total Square (Post) (cm) 164.35 -Area of Debridement (cm) - Length 9.5 -Area of Debridement (cm) - Width 17.3 -Total Square (Area) (cm) 164.35 -Tunneling No -Circular Undermining No -Wound/Ulcer Outcome Not Healed -Ulcer Cleansing Rinsed/ Irrigated with Saline -Foul Odor after Cleansing No -Bioengineered Tissue No -Bleeding Controlled with Pressure -Treatment Response Procedure Tolerated Well -Debridement - Subq, 1st 20sq cm Yes -Debridement, SubQ, ea addt'l 20sq cm 8 or part thereof Pain Scale: 0-10 Numeric Is Patient Pain Free? Yes - Nurse 3 - General Ulcer D/C NN Start: 06/15/24 10:05 Freq: Status: Active Protocol: Activity Type Activity Date Activity User E-sign Co-sign Detail Recorded Client Recorded Date Recorded By Document 06/15/24 11:08 [id number] 06/15/24 11:09 06/15/24 11:08 Wound Care Center Nurse 3 #18 Left medial LE cluster -Ulcer Cleansing Rinsed/ Irrigated with Saline -Primary Dressing Applied Aquacel Extra, Fibracol Plus 4x4 -Other Dressing ABD -Primary Dressing Covered/Secured with Dry Gauze & Roll Gauze, Secured with Tape -Aquacel Extra 2 -Fibracol Plus 4x4 1 Left -Tubular Bandage Single Layer -Size of Tubigrip Used Size F -Size F ($) 1 Treatment Response Procedure Tolerated Well Pain Scale: 0-10 Numeric Is Patient Pain Free? Yes - Visit Discharge Discharge Condition Stable Ambulatory Status Ambulatory, Walker Transportation Private Auto Medication Reconcilliation completed & No provided to patient/care provider Clinical Summary of Care Provided Yes Assessment/Plan Assessment/Plan (1) Lymphedema: CODE(S): I89.0 - Lymphedema, not elsewhere classified (2) Hypertension: CODE(S): I10 - Essential (primary) hypertension QUALIFIERS: Hypertension type: primary hypertension Qualified Code(s): I10 - Essential (primary) hypertension (3) Hyperlipidemia: CODE(S): E78.5 - Hyperlipidemia, unspecified QUALIFIERS: Hyperlipidemia type: mixed hyperlipidemia Qualified Code(s): E78.2 - Mixed hyperlipidemia (4) History of DVT (deep vein thrombosis): CODE(S): Z86.718 - Personal history of other venous thrombosis and embolism (5) Venous insufficiency (chronic) (peripheral): CODE(S): I87.2 - Venous insufficiency (chronic) (peripheral) (6) Venous ulcer of left lower extremity with varicose veins: CODE(S): I83.029 - Varicose veins of left lower extremity with ulcer of unspecified site (7) Edema: CODE(S): R60.9 - Edema, unspecified QUALIFIERS: Edema type: unspecified Qualified Code(s): R60.9 - Edema, unspecified PLAN: Plan Evaluation and debridement of left medial LE ulcer performed today in clinic as annotated above. At home wound-care instructions: Will have him change to Fibracol, Aquacel Extra and ABD changed daily. Use superabsorber if drainage is heavy. If his ulcers are dry then would decrease frequency of changes to every other day. Continue compression with F tubigrips b/l. Due to the delayed progress in wound healing of his venous ulcers, we discussed applying for advanced wound healing product for healing his ulcer. Due to the size of his ulcer, Theraskin application approval is being requested from his insurance as it is medically necessary for salvaging his limb and healing his ulcer. He underwent 2 applications of Theraskin to this ulcer. Since application of Theraskin he has had much improvement in epithelialization of his ulcer even though the overall size is not significantly changed there is progress. Off-loading: The patient was instructed to avoid pressure and friction on the affected areas. Reposition every 2 hours at minimum. Avoid prolonged standing and/or dangling of legs. When seated, feet should be elevated at chest level. Frequent ambulation is encouraged. Encouraged lymphedema pump use. Diet: Patient encouraged to increase protein intake while taking caution to avoid high carbohydrate and/or sugar intake. Labs/cultures/imaging: Wound culture showed 1+ Pseudomonas that is sensitive to Levofloxacin and completed treatment on 08/16/23. Wound culture taken today. Follow-up: Return in 1 week for wound care follow up and have secondary dressing changed by home health Tuesday and Tuesday. Return sooner or report to the emergency room should symptoms worsen, or new symptoms arise. Note: [employer] speech recognition rubber roller grinder software was used to create portions of this document. Sound-alike and misspelled words, as well as other rubber roller grinder errors may be contained in the documentation.
[2024-06-22 09:54] VITALS: BP 111/66; PULSE 65; RESP 18; TEMP 36.1
--- NOTE | 2024-06-22 11:28 | PN.PCM_ITS ---
History of Present Illness Date of Service: 06/22/24 Chief Complaint: venous ulcers of left lower extremity History of Wound: Mauricio is a 68 yo gentleman who is here today for evaluation of ulcers to to his bilateral lower legs. He has been treated multiple times in the past at the wound healing center for similar ulcers. The left LE ulcer started after he developed increased swelling and blisters of left leg in October and the right leg started sometime at the end of October. He was seen at PCP's office a culture was taken and it was resistant to several antibiotics. He was treated initially with Levaquin but had myalgias and then was treated with doxycycline which he finished 2 days ago. He denies improvement and is having swelling to his left calf and thigh. He has been having swelling to both lower extremities for many years and it has worsened over the last few months. He has not been compliant with compression. He has had increased pain especially in the left leg. He has clear yellow drainage and redness without odor or warmth. He is anti- coagulated on coumadin. He has been washing with Dial soap and witch ifrah. He had been using Collagen at times and using Calcium Alginate and covering with ABD pads during October. He was treated with 3M compression and Aquacel Ag. He was referred to the wound center for ongoing treatment. His ulcers have moderate to heavy drainage. He was recently hospitalized for cellulitis and edema for the last 10 days. He was in the hospital from 11/30/22 until 12/09/22 for treatment of cellulitis and edema. He underwent treatment with Vancomycin and IV lasix and compression. Discharged on 12/09/22. He returned to his assisted living apartment on Tuesday12/21/22. Subjective Subjective Mauricio is a 69-year-old male with longstanding history of chronic venous ulceration to the left lower extremity. Wound cultures were positive for multiple bacteria. He has had increased drainage this week. His edema is a little better this week and he has been using ABDs and Aquacel Extra. There is one day where he forgot to put ABD over the Aquacel and drainage was worse. There has been worsening in his ulcer overall. He is using MARCIO and size F Tubigrips for compression. 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 He continues to use his lymphedema pumps but continues to have pain with use of these pumps. Objective Data Objective Data Vital Signs: Vital Signs Temp Pulse Resp BP 97 F L 65 18 111/66 06/22/24 09:54 06/22/24 09:54 06/22/24 09:54 06/22/24 09:54 Lab / Micro Data Attestation: I reviewed the patient's lab results. Micro: Microbiology 06/15/24 10:25 Ulcer, Decubitus - Leg, Left Gram Stain - Final 06/15/24 10:25 Ulcer, Decubitus - Leg, Left Wound Culture - Final Escherichia hermannii Raoultella planticola Pseudomonas aeruginosa Vancomycin Resist. E. faecalis Alcaligenes faecalis ssp faeca Staphylococcus cohnii urealyti 06/15/24 10:25 Ulcer, Decubitus - Leg, Left Anaerobic Culture - Final Anaerobic cocci Physical Exam Const alert, oriented x3 and no apparent distress General Appearance: cooperative and comfortable HEENT normocephalic and head/scalp atraumatic Resp normal respiratory effort Effort and Inspection: able to speak in complete sentences Cardio regular rate and regular rhythm Skin Wounds: wounds noted Wound Narrative: as in clinical panel Psych mental status grossly normal, thought process normal, cooperative and affect normal Debridement Note Debridement Note Wound debrided: left medial LE cluster ulcer Laterality: Left Type of Debridement: Excisional debridement Anesthesia Used: 5% Lidocaine Gel and Cetacaine Depth: Down to and including healthy tissue and in the subcutaneous layer Percentage of wound debrided: 100 Instrument Used: 7mm curette Tissue Removed: Yellow slough, devitalized tissue Severity: Fat Layer Exposed Amount of bleeding with debridement: Mild Bleeding Controlled with: Compression and gauze Patient tolerated procedure: Patient tolerated procedure well Post-Debridement Measurements and Additional Note: Post-Debridement Measurements/Treatment - Nurse 1 - General Ulcer Assessment Start: 06/15/24 10:05 Freq: Status: Active Protocol: ONDINA Activity Type Activity Date Activity User E-sign Co-sign Detail Recorded Client Recorded Date Recorded By Document 06/15/24 10:05 RB [id number] 06/15/24 10:07 RB Document 06/22/24 09:54 MT [id number] 06/22/24 10:03 MT 06/15/24 06/22/24 10:05 09:54 - Today's Visit Information 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 of service 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 ) Arrival Mode Ambulatory Transfer Assistance None Patient Identification Verified (Name & Yes ) Patient Requires Transmission-Based No Precautions Vital Signs Temperature (97.8 F-99.1 F) 97 F L 97 F L Temperature Source Temporal Temporal Pulse Rate (60-100) 70 65 Pulse Location Monitor Monitor Respiratory Rate (12-18) 18 18 Respiratory rate source Observation Observation Blood Pressure (90/60-120/80) 117/58 L 111/66 Blood Pressure Mean (mm Hg) 77 81 Source Monitor Monitor Position Semi-Fowlers Sitting Blood Pressure Location Left Arm Right Arm History Since Last Visit- (Skip if this is Patient's initial visit) Have you changed medications since your No last visit? Any new allergies or adverse reactions No Had a fall/change in ADL's that may No increase risk of falls Signs or symptoms of abuse and/or No neglect since last visit Have you been in the hospital since your No last visit? Has dressing in place as prescribed Yes Yes Has compression in place as prescribed Yes Yes Has offloadiing in place as prescribed No Yes Experienced any changes in pain level or No Yes management Left Footwear Regular Shoe Right Footwear Regular Shoe Pain Scale: 0-10 Numeric Is Patient Pain Free? Yes Yes WC - Nurse 1 - General Ulcer Measurement Start: 06/15/24 10:05 Freq: Status: Active Protocol: Activity Type Activity Date Activity User E-sign Co-sign Detail Recorded Client Recorded Date Recorded By Document 06/15/24 10:05 RB [id number] 06/15/24 10:07 RB Document 06/22/24 09:54 IL [id number] 06/22/24 10:03 IL 06/15/24 06/22/24 10:05 09:54 Wound Center Nurse 1 #18 Left medial LE cluster -Combined with other wound No -Current Size (cm) - Length 8.5 9.3 -Current Size (cm) - Width 19 16.8 -Current Size (cm) - Depth 0.1 0.2 -Total Square Cm 161.5 156.24 -Photo Taken Yes -Tunneling No -Undermining/Tunneling No -Circular Undermining No -Exudate Amt Medium Medium -Exudate Type Serosanguineous Serosanguineous -Wound Margin Distinct, Thickened Outline Attached -Granulation Amt Medium (34-66%) Medium (34-66%) -Granulation Quality Chicken Pale,Chicken -Slough/Fibrin Yes -Necrosis Amt Medium (34-66%) Medium (34-66%) -Necrotic Tissue Type Adherent Slough Adherent Slough -Structure Exposed N/A -Texture (Marie-wound Skin Appearance) Assessed Assessed -Moisture (Marie-wound Skin Appearance) Assessed Assessed -Color (Marie-wound Skin Appearance) Assessed, Assessed Hemosiderin Staining -Temperature (Marie-wound Skin No Abnormality No Abnormality Appearance) (Pt Warm) (Pt Warm) -Tenderness on Palpation (Marie-wound No No Skin Appearance) -Ulcer Cleansing Wound Cleanser Soap and Water -Foul Odor after Cleansing No No -Anesthetic Used 5% Lidocaine 5% Lidocaine Gel Gel Lower Limb Edema Present Yes Left Calf (cm) 46 Left Ankle (cm) 32.5 WC - Nurse 2 - General Ulcer CM Notes Start: 06/15/24 10:05 Freq: Status: Active Protocol: Activity Type Activity Date Activity User E-sign Co-sign Detail Recorded Client Recorded Date Recorded By Document 06/15/24 10:24 [id number] 06/15/24 10:38 Document 06/22/24 10:13 [id number] 06/22/24 10:34 06/15/24 06/22/24 10:24 10:13 Wound Center Nurse 2 #18 Left medial LE cluster -Time 10:24 10:14 -Correct Patient Yes Yes -Correct Side, Site, Position Yes Yes -Correct Procedure Yes Yes -Procedure Performed Yes Yes -Type of Procedure Debridement Debridement -Clinical Debridement Subcutaneous Subcutaneous -Tissue Removed Subcutaneous Subcutaneous -Post Debridement (cm) - Length 9.5 9.2 -Post Debridement (cm) - Width 17.3 17.5 -Post Debridement (cm) - Depth 0.2 0.1 -Total Square (Post) (cm) 164.35 161.00 -Area of Debridement (cm) - Length 9.5 9.2 -Area of Debridement (cm) - Width 17.3 17.5 -Total Square (Area) (cm) 164.35 161.00 -Tunneling No No -Undermining/Tunneling No -Circular Undermining No No -Wound/Ulcer Outcome Not Healed Not Healed -Ulcer Cleansing Rinsed/ Rinsed/ Irrigated with Irrigated with Saline Saline -Foul Odor after Cleansing No No -Bioengineered Tissue No No -Bleeding Controlled with Pressure Pressure -Treatment Response Procedure Procedure Tolerated Well Tolerated Well -Debridement - Subq, 1st 20sq cm Yes Yes -Debridement, SubQ, ea addt'l 20sq cm 8 8 or part thereof Pain Scale: 0-10 Numeric Is Patient Pain Free? Yes Yes - Nurse 3 - General Ulcer D/C NN Start: 06/15/24 10:05 Freq: Status: Active Protocol: Activity Type Activity Date Activity User E-sign Co-sign Detail Recorded Client Recorded Date Recorded By Document 06/15/24 11:08 RB [id number] 06/15/24 11:09 RB Document 06/22/24 10:56 IL [id number] 06/22/24 10:59 IL 06/15/24 06/22/24 11:08 10:56 Wound Care Center Nurse 3 #18 Left medial LE cluster -Ulcer Cleansing Rinsed/ Irrigated with Saline -Primary Dressing Applied Aquacel Extra, Aquacel Extra Fibracol Plus 4x4 -Other Dressing ABD -Primary Dressing Covered/Secured with Dry Gauze & Roll Gauze, Secured with Tape -Aquacel Extra 2 2 -Fibracol Plus 4x4 1 Left -Compression Wrap Marcio Wrap -Tubular Bandage Single Layer Single Layer -Size of Tubigrip Used Size F Size F -Size F ($) 1 1 Treatment Response Procedure Tolerated Well Pain Scale: 0-10 Numeric Is Patient Pain Free? Yes Yes - Visit Discharge Discharge Condition Stable Ambulatory Status Ambulatory, Walker Transportation Private Auto Medication Reconcilliation completed & No provided to patient/care provider Clinical Summary of Care Provided Yes Assessment/Plan Assessment/Plan (1) Lymphedema: CODE(S): I89.0 - Lymphedema, not elsewhere classified (2) Hypertension: CODE(S): I10 - Essential (primary) hypertension QUALIFIERS: Hypertension type: primary hypertension Qualified Code(s): I10 - Essential (primary) hypertension (3) Hyperlipidemia: CODE(S): E78.5 - Hyperlipidemia, unspecified QUALIFIERS: Hyperlipidemia type: mixed hyperlipidemia Qualified Code(s): E78.2 - Mixed hyperlipidemia (4) History of DVT (deep vein thrombosis): CODE(S): Z86.718 - Personal history of other venous thrombosis and embolism (5) Venous insufficiency (chronic) (peripheral): CODE(S): I87.2 - Venous insufficiency (chronic) (peripheral) (6) Venous ulcer of left lower extremity with varicose veins: CODE(S): I83.029 - Varicose veins of left lower extremity with ulcer of unspecified site (7) Edema: CODE(S): R60.9 - Edema, unspecified QUALIFIERS: Edema type: unspecified Qualified Code(s): R60.9 - Edema, unspecified PLAN: Plan Evaluation and debridement of left medial LE ulcer performed today in clinic as annotated above. At home wound-care instructions: Will have him continue Aquacel Extra and ABD changed daily. Use superabsorber if drainage is heavy. If his ulcers are dry then would decrease frequency of changes to every other day. Continue compression with F tubigrips b/l. Due to the delayed progress in wound healing of his venous ulcers, we discussed applying for advanced wound healing product for healing his ulcer. Due to the size of his ulcer, Theraskin application approval is being requested from his insurance as it is medically necessary for salvaging his limb and healing his ulcer. He underwent 2 applications of Theraskin to this ulcer. Since application of Theraskin he has had much improvement in epithelialization of his ulcer even though the overall size is not significantly changed there is progress. Off-loading: The patient was instructed to avoid pressure and friction on the affected areas. Reposition every 2 hours at minimum. Avoid prolonged standing and/or dangling of legs. When seated, feet should be elevated at chest level. Frequent ambulation is encouraged. Encouraged lymphedema pump use. Diet: Patient encouraged to increase protein intake while taking caution to avoid high carbohydrate and/or sugar intake. Labs/cultures/imaging: Wound culture showed Pseudomonas, Escherichia hermannii, Raoultella planticola, Vancomycin Resist. E. faecalis, Alcaligenes faecalis ssp faeca, Staphylococcus cohnii urealyti and anaerobic bacteria on 06/15/24 and he was started on Levofloxacin and Augmentin. Follow-up: Return in 1 week for wound care follow up and have secondary dressing changed by home health Tuesday and Tuesday. Return sooner or report to the emergency room should symptoms worsen, or new symptoms arise. Note: [email or web address] speech recognition faucet polisher software was used to create portions of this document. Sound-alike and misspelled words, as well as other faucet polisher errors may be contained in the documentation.
--- NOTE | 2024-06-22 11:54 | RAD_ITS ---
STUDY: X-RAY - LUMBOSACRAL SPINE REASON FOR EXAM: Male, 69 years old. Lumbar radiculopathy. TECHNIQUE: 8 view(s) of the lumbosacral spine, including lateral flexion and extension views, were obtained. COMPARISON: August 13, 2016 FINDINGS: Osteopenia. Normal lumbar lordosis. No scoliosis. Normal vertebral alignment. Moderate lower thoracic and lumbosacral facet sclerosis. Intervertebral disc space narrowing diffusely, slightly progressed since the prior study, with osteophyte formation most marked at L1-2, L2-3, L3-4, L4-5 and L5-S1. Loss of height of L2 since the prior study with increased concavities of multiple vertebral bodies. IVC filter unchanged. RAD/L/S Spine Comp/w Bending Views IMPRESSION: Osteopenia with progression of moderate lower thoracic and lumbosacral spondylosis with new loss of Adan of the L2 vertebral body, age indeterminate. Electronically Signed: Harish Roy MD at 13:57 EDT ,
--- NOTE | 2024-06-22 11:54 | RAD_ITS ---
STUDY: X-RAY - THORACIC SPINE REASON FOR EXAM: Male, 69 years old. Pain. TECHNIQUE: 4 view(s) of the thoracic spine were obtained. COMPARISON: August 13, 2016 FINDINGS: Osteopenia. Normal kyphosis of the thoracic spine. No significant scoliosis. Diffuse moderate intervertebral disc space narrowing with small osteophytes, unchanged from prior study. IVC filter with vascular calcification. RAD/Thoracic Spine 3 Views IMPRESSION: Stable osteopenia with diffuse mild thoracic spondylosis. Electronically Signed: Harish Roy MD at 13:59 EDT ,
--- NOTE | 2024-06-22 11:54 | RAD_ITS ---
INDICATION: left foot pain EXAMINATION/TECHNIQUE: X-RAY - LEFT XR Foot 2 Views 2 VIEWS COMPARISON: FINDINGS: SOFT TISSUES: No soft tissue swelling or gas. No radiopaque foreign body. Vascular calcifications. BONES/JOINTS: No acute fracture or subluxation.. Normal alignment. Preservation of the joint space.. No sclerotic or destructive changes observed. RAD/Foot 2 Views IMPRESSION: No acute bony injury. Electronically Signed: Odilon Schmitz DO at 18:52 EDT ,
[2024-06-29 09:49] VITALS: BP 122/67; PULSE 62; RESP 18; TEMP 36.3
--- NOTE | 2024-06-29 13:30 | PCM.WC.PN ---
History of Present Illness Date of Service: 06/29/24 Chief Complaint: venous ulcers of left lower extremity History of Wound: Mauricio is a 68 yo gentleman who is here today for evaluation of ulcers to to his bilateral lower legs. He has been treated multiple times in the past at the wound healing center for similar ulcers. The left LE ulcer started after he developed increased swelling and blisters of left leg in October and the right leg started sometime at the end of October. He was seen at PCP's office a culture was taken and it was resistant to several antibiotics. He was treated initially with Levaquin but had myalgias and then was treated with doxycycline which he finished 2 days ago. He denies improvement and is having swelling to his left calf and thigh. He has been having swelling to both lower extremities for many years and it has worsened over the last few months. He has not been compliant with compression. He has had increased pain especially in the left leg. He has clear yellow drainage and redness without odor or warmth. He is anti-coagulated on coumadin. He has been washing with Dial soap and witch ifrah. He had been using Collagen at times and using Calcium Alginate and covering with ABD pads during October. He was treated with 3M compression and Aquacel Ag. He was referred to the wound center for ongoing treatment. His ulcers have moderate to heavy drainage. He was recently hospitalized for cellulitis and edema for the last 10 days. He was in the hospital from 11/30/22 until 12/09/22 for treatment of cellulitis and edema. He underwent treatment with Vancomycin and IV lasix and compression. Discharged on 12/09/22. He returned to his assisted living apartment on Tuesday12/21/22. Subjective Subjective Mauricio is a 69-year-old male with longstanding history of chronic venous ulceration to the left lower extremity. Wound culture from 06/15/24 were positive for multiple bacteria and he completes antibiotic treatment tomorrow. He has had decreased drainage this week. His edema is a little better this week and he has been using ABDs and Aquacel Extra. There has been no worsening in his ulcer overall this week. He is using KATE and size F Tubigrips for compression. 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 He continues to use his lymphedema pumps but continues to have pain with use of these pumps. Objective Data Objective Data Vital Signs: Vital Signs Temp Pulse Resp BP O2 Del Method 97.4 F L 62 18 122/67 H Room Air 06/29/24 09:49 06/29/24 09:49 06/29/24 09:49 06/29/24 09:49 06/29/24 09:49 Oxygen Delivery Method Room Air Lab / Micro Data Micro: Microbiology 06/15/24 10:25 Ulcer, Decubitus - Leg, Left Gram Stain - Final 06/15/24 10:25 Ulcer, Decubitus - Leg, Left Wound Culture - Final Escherichia hermannii Raoultella planticola Pseudomonas aeruginosa Vancomycin Resist. E. faecalis Alcaligenes faecalis ssp faeca Staphylococcus cohnii urealyti 06/15/24 10:25 Ulcer, Decubitus - Leg, Left Anaerobic Culture - Final Anaerobic cocci Physical Exam Const alert, oriented x3 and no apparent distress General Appearance: cooperative and comfortable HEENT normocephalic and head/scalp atraumatic Lymph Lymphatic: lymphedema moderate Resp normal respiratory effort Effort and Inspection: able to speak in complete sentences Cardio regular rate and regular rhythm Extremity General Extremity: edema bilateral lower extremity Details: severe Skin Wounds: wounds noted Wound Narrative: as in clinical panel Psych mental status grossly normal, thought process normal, cooperative and affect normal Debridement Note Debridement Note Wound debrided: left medial LE cluster Laterality: Left Type of Debridement: Excisional debridement Anesthesia Used: 4% Lidocaine Solution, 5% Lidocaine Gel and Cetacaine Depth: Down to and including healthy tissue and in the subcutaneous layer Percentage of wound debrided: 100 Instrument Used: 7mm curette Tissue Removed: Yellow slough, devitalized tissue Severity: Fat Layer Exposed Amount of bleeding with debridement: Mild Bleeding Controlled with: Compression and gauze Patient tolerated procedure: Patient tolerated procedure well Post-Debridement Measurements and Additional Note: Post-Debridement Measurements/Treatment DEBBIE - Nurse 1 - General Ulcer Assessment Start: 06/15/24 10:05 Freq: Status: Active Protocol: ONDINA Activity Type Activity Date Activity User E-sign Co-sign Detail Recorded Client Recorded Date Recorded By Document 06/15/24 10:05 RB [id number] 06/15/24 10:07 RB Document 06/22/24 09:54 MT [id number] 06/22/24 10:03 MT Document 06/29/24 09:49 KW [id number] 06/29/24 10:02 KW 06/15/24 06/22/24 06/29/24 10:05 09:54 09:49 - Today's Visit Information Type of service Follow-up Visit Follow-up Visit (Physician/ATHLETIC FIELD CUSTODIAN (Physician/ATHLETIC FIELD CUSTODIAN ) ) Arrival Mode Ambulatory Ambulatory, Walker Transfer Assistance None Patient Identification Verified (Name & Yes Yes ) Patient Requires Transmission-Based No Precautions Vital Signs Temperature (97.8 F-99.1 F) 97 F L 97 F L 97.4 F L Temperature Source Temporal Temporal Temporal Pulse Rate (60-100) 70 65 62 Pulse Location Monitor Monitor Monitor Respiratory Rate (12-18) 18 18 18 Respiratory rate source Observation Observation Observation Oxygen Delivery Method Room Air Blood Pressure (90/60-120/80) 117/58 L 111/66 122/67 H Blood Pressure Mean (mm Hg) 77 81 85 Source Monitor Monitor Monitor Position Semi-Fowlers Sitting Semi-Fowlers Blood Pressure Location Left Arm Right Arm Left Arm History Since Last Visit- (Skip if this is Patient's initial visit) Have you changed medications since your No No last visit? Any new allergies or adverse reactions No No Had a fall/change in ADL's that may No No increase risk of falls Signs or symptoms of abuse and/or No No neglect since last visit Have you been in the hospital since your No No last visit? Has dressing in place as prescribed Yes Yes Yes Has compression in place as prescribed Yes Yes Yes Has offloadiing in place as prescribed No Yes N/A Experienced any changes in pain level or No Yes No management Left Footwear Regular Shoe Regular Shoe Right Footwear Regular Shoe Regular Shoe Pain Scale: 0-10 Numeric Is Patient Pain Free? Yes Yes Yes - Nurse 1 - General Ulcer Measurement Start: 06/15/24 10:05 Freq: Status: Active Protocol: Activity Type Activity Date Activity User E-sign Co-sign Detail Recorded Client Recorded Date Recorded By Document 06/15/24 10:05 RB [id number] 06/15/24 10:07 RB Document 06/22/24 09:54 MT [id number] 06/22/24 10:03 MT Document 06/29/24 09:49 KW [id number] 06/29/24 10:02 KW 06/15/24 06/22/24 06/29/24 10:05 09:54 09:49 Wound Center Nurse 1 #18 Left medial LE cluster -Combined with other wound No -Current Size (cm) - Length 8.5 9.3 17.5 -Current Size (cm) - Width 19 16.8 9.5 -Current Size (cm) - Depth 0.1 0.2 0.3 -Total Square Cm 161.5 156.24 166.25 -Photo Taken Yes -Tunneling No -Undermining/Tunneling No -Circular Undermining No -Exudate Amt Medium Medium Medium -Exudate Type Serosanguineous Serosanguineous Serosanguineous -Wound Margin Distinct, Thickened Distinct, Outline Outline Attached Attached -Granulation Amt Medium (34-66%) Medium (34-66%) Large (67-100%) -Granulation Quality [place] Pale,[place],Red -Slough/Fibrin Yes -Necrosis Amt Medium (34-66%) Medium (34-66%) Medium (34-66%) -Necrotic Tissue Type Adherent Slough Adherent Slough Adherent Slough -Structure Exposed N/A -Texture (Marie-wound Skin Appearance) Assessed Assessed Assessed -Moisture (Marie-wound Skin Appearance) Assessed Assessed Assessed -Color (Marie-wound Skin Appearance) Assessed, Assessed Assessed, Hemosiderin Erythema Staining -Temperature (Marie-wound Skin No Abnormality No Abnormality No Abnormality Appearance) (Pt Warm) (Pt Warm) (Pt Warm) -Tenderness on Palpation (Marie-wound No No No Skin Appearance) -Ulcer Cleansing Wound Cleanser Soap and Water Soap and Water -Foul Odor after Cleansing No No No -Anesthetic Used 5% Lidocaine 5% Lidocaine 5% Lidocaine Gel Gel Gel Lower Limb Edema Present Yes Left Calf (cm) 46 Left Ankle (cm) 32.5 WC - Nurse 2 - General Ulcer CM Notes Start: 06/15/24 10:05 Freq: Status: Active Protocol: Activity Type Activity Date Activity User E-sign Co-sign Detail Recorded Client Recorded Date Recorded By Document 06/15/24 10:24 [id number] 06/15/24 10:38 Document 06/22/24 10:13 [id number] 06/22/24 10:34 Document 06/29/24 10:36 [id number] 06/29/24 10:58 09/06/24 09/13/24 09/20/24 10:24 10:13 10:36 Wound Center Nurse 2 #18 Left medial LE cluster -Time 10:24 10:14 10:36 -Correct Patient Yes Yes Yes -Correct Side, Site, Position Yes Yes Yes -Correct Procedure Yes Yes Yes -Procedure Performed Yes Yes Yes -Type of Procedure Debridement Debridement Debridement -Clinical Debridement Subcutaneous Subcutaneous Subcutaneous -Tissue Removed Subcutaneous Subcutaneous Subcutaneous -Post Debridement (cm) - Length 9.5 9.2 9.2 -Post Debridement (cm) - Width 17.3 17.5 15.8 -Post Debridement (cm) - Depth 0.2 0.1 0.1 -Total Square (Post) (cm) 164.35 161.00 145.36 -Area of Debridement (cm) - Length 9.5 9.2 9.2 -Area of Debridement (cm) - Width 17.3 17.5 15.8 -Total Square (Area) (cm) 164.35 161.00 145.36 -Tunneling No No No -Undermining/Tunneling No No -Circular Undermining No No No -Wound/Ulcer Outcome Not Healed Not Healed Not Healed -Ulcer Cleansing Rinsed/ Rinsed/ Wound Cleanser Irrigated with Irrigated with Saline Saline -Foul Odor after Cleansing No No No -Bioengineered Tissue No No No -Bleeding Controlled with Pressure Pressure Pressure -Treatment Response Procedure Procedure Procedure Tolerated Well Tolerated Well Tolerated Well -Debridement - Subq, 1st 20sq cm Yes Yes Yes -Debridement, SubQ, ea addt'l 20sq cm 8 8 or part thereof Pain Scale: 0-10 Numeric Is Patient Pain Free? Yes Yes Yes WC - Nurse 3 - General Ulcer D/C NN Start: 06/15/24 10:05 Freq: Status: Active Protocol: Activity Type Activity Date Activity User E-sign Co-sign Detail Recorded Client Recorded Date Recorded By Document 06/15/24 11:08 RB [id number] 06/15/24 11:09 RB Document 06/22/24 10:56 MT [id number] 06/22/24 10:59 MT Document 06/29/24 11:32 RB [id number] 06/29/24 11:33 RB 06/15/24 06/22/24 06/29/24 11:08 10:56 11:32 Wound Care Center Nurse 3 #18 Left medial LE cluster -Ulcer Cleansing Rinsed/ Rinsed/ Irrigated with Irrigated with Saline Saline -Primary Dressing Applied Aquacel Extra, Aquacel Extra Aquacel Extra Fibracol Plus 4x4 -Other Dressing ABD ABD -Primary Dressing Covered/Secured with Dry Gauze & Dry Gauze & Roll Gauze, Roll Gauze, Secured with Secured with Tape Tape -Aquacel Extra 2 2 2 -Fibracol Plus 4x4 1 Left -Compression Wrap Kate Wrap -Tubular Bandage Single Layer Single Layer Single Layer -Size of Tubigrip Used Size F Size F Size F -Size F ($) 1 1 1 Treatment Response Procedure Procedure Tolerated Well Tolerated Well Pain Scale: 0-10 Numeric Is Patient Pain Free? Yes Yes Yes WC - Visit Discharge Discharge Condition Stable Stable Ambulatory Status Ambulatory, Ambulatory, Walker Walker Transportation Private Auto Private Auto Medication Reconcilliation completed & No No provided to patient/care provider Clinical Summary of Care Provided Yes Yes Assessment/Plan Assessment/Plan (1) Lymphedema: CODE(S): I89.0 - Lymphedema, not elsewhere classified (2) Hypertension: CODE(S): I10 - Essential (primary) hypertension QUALIFIERS: Hypertension type: primary hypertension Qualified Code(s): I10 - Essential (primary) hypertension (3) Hyperlipidemia: CODE(S): E78.5 - Hyperlipidemia, unspecified QUALIFIERS: Hyperlipidemia type: mixed hyperlipidemia Qualified Code(s): E78.2 - Mixed hyperlipidemia (4) History of DVT (deep vein thrombosis): CODE(S): Z86.718 - Personal history of other venous thrombosis and embolism (5) Venous insufficiency (chronic) (peripheral): CODE(S): I87.2 - Venous insufficiency (chronic) (peripheral) (6) Venous ulcer of left lower extremity with varicose veins: CODE(S): I83.029 - Varicose veins of left lower extremity with ulcer of unspecified site (7) Edema: CODE(S): R60.9 - Edema, unspecified QUALIFIERS: Edema type: unspecified Qualified Code(s): R60.9 - Edema, unspecified PLAN: Plan Evaluation and debridement of left medial LE ulcer performed today in clinic as annotated above. At home wound-care instructions: Will have him continue Aquacel Extra and ABD changed daily. Use superabsorber if drainage is heavy. Continue compression with F tubigrips b/l. Due to the delayed progress in wound healing of his venous ulcers, we discussed applying for advanced wound healing product for healing his ulcer. Due to the size of his ulcer, Therask[employer] application approval is being requested from his insurance as it is medically necessary for salvaging his limb and healing his ulcer. He underwent 2 applications of Theraskin to this ulcer. Since application of Theraskin he has had much improvement in epithelialization of his ulcer even though the overall size is not significantly changed there is progress. Off-loading: The patient was instructed to avoid pressure and friction on the affected areas. Reposition every 2 hours at minimum. Avoid prolonged standing and/or dangling of legs. When seated, feet should be elevated at chest level. Frequent ambulation is encouraged. Encouraged lymphedema pump use. Diet: Patient encouraged to increase protein intake while taking caution to avoid high carbohydrate and/or sugar intake. Labs/cultures/imaging: Wound culture showed Pseudomonas, Escherichia hermannii, Raoultella planticola, Vancomycin Resist. E. faecalis, Alcaligenes faecalis ssp faeca, Staphylococcus cohnii urealyti and anaerobic bacteria on 06/15/24 and he was started on Levofloxacin and Augmentin. Follow-up: Return in 1 week for wound care follow up and have secondary dressing changed by home health Tuesday and Tuesday. Return sooner or report to the emergency room should symptoms worsen, or new symptoms arise. Note: [employer] speech recognition lens mold setter software was used to create portions of this document. Sound-alike and misspelled words, as well as other lens mold setter errors may be contained in the documentation.
[2024-07-06 10:01] VITALS: BP 108/61; PULSE 68; RESP 18; TEMP 35.6
--- NOTE | 2024-07-06 14:02 | PCM.WC.PN ---
History of Present Illness Date of Service: 07/06/24 Chief Complaint: venous ulcers of left lower extremity History of Wound: Mauricio is a 68 yo gentleman who is here today for evaluation of ulcers to to his bilateral lower legs. He has been treated multiple times in the past at the wound healing center for similar ulcers. The left LE ulcer started after he developed increased swelling and blisters of left leg in October and the right leg started sometime at the end of October. He was seen at PCP's office a culture was taken and it was resistant to several antibiotics. He was treated initially with Levaquin but had myalgias and then was treated with doxycycline which he finished 2 days ago. He denies improvement and is having swelling to his left calf and thigh. He has been having swelling to both lower extremities for many years and it has worsened over the last few months. He has not been compliant with compression. He has had increased pain especially in the left leg. He has clear yellow drainage and redness without odor or warmth. He is anti-coagulated on coumadin. He has been washing with Dial soap and witch ifrah. He had been using Collagen at times and using Calcium Alginate and covering with ABD pads during October. He was treated with 3M compression and Aquacel Ag. He was referred to the wound center for ongoing treatment. His ulcers have moderate to heavy drainage. He was recently hospitalized for cellulitis and edema for the last 10 days. He was in the hospital from 11/30/22 until 12/09/22 for treatment of cellulitis and edema. He underwent treatment with Vancomycin and IV lasix and compression. Discharged on 12/09/22. He returned to his assisted living apartment on Tuesday12/21/22. Subjective Subjective Mauricio is a 69-year-old male with longstanding history of chronic venous ulceration to the left lower extremity. Wound culture from 06/15/24 were positive for multiple bacteria and he completed antibiotic treatment. He has had decreased drainage this week. His edema is a little better this week and he has been using ABDs and Aquacel Extra. There has been no worsening in his ulcer overall this week. He is using KATE and size F Tubigrips for compression. 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 He continues to use his lymphedema pumps but continues to have pain with use of these pumps. Objective Data Objective Data Vital Signs: Vital Signs Temp Pulse Resp BP O2 Del Method 96.1 F L 68 18 108/61 Room Air 07/06/24 10:01 07/06/24 10:01 07/06/24 10:01 07/06/24 10:01 06/29/24 09:49 Oxygen Delivery Method Room Air Lab / Micro Data Micro: Microbiology 06/15/24 10:25 Ulcer, Decubitus - Leg, Left Gram Stain - Final 06/15/24 10:25 Ulcer, Decubitus - Leg, Left Wound Culture - Final Escherichia hermannii Raoultella planticola Pseudomonas aeruginosa Vancomycin Resist. E. faecalis Alcaligenes faecalis ssp faeca Staphylococcus cohnii urealyti 06/15/24 10:25 Ulcer, Decubitus - Leg, Left Anaerobic Culture - Final Anaerobic cocci Physical Exam Const alert, oriented x3 and no apparent distress General Appearance: cooperative and comfortable HEENT normocephalic and head/scalp atraumatic Lymph Lymphatic: lymphedema moderate Resp normal respiratory effort Effort and Inspection: able to speak in complete sentences Cardio regular rate and regular rhythm Extremity General Extremity: edema bilateral lower extremity Details: severe Skin Wounds: wounds noted Wound Narrative: as in clinical panel Psych mental status grossly normal, thought process normal, cooperative and affect normal Debridement Note Debridement Note Wound debrided: left medial LE cluster Laterality: Left Type of Debridement: Excisional debridement Anesthesia Used: 4% Lidocaine Solution, 5% Lidocaine Gel and Cetacaine Depth: Down to and including healthy tissue and in the subcutaneous layer Percentage of wound debrided: 100 Instrument Used: - (misonix ultrasonic debridement) Tissue Removed: Yellow slough, devitalized tissue Severity: Fat Layer Exposed Amount of bleeding with debridement: Mild Bleeding Controlled with: Compression and gauze Patient tolerated procedure: Patient tolerated procedure well Post-Debridement Measurements and Additional Note: Post-Debridement Measurements/Treatment DEBBIE - Nurse 1 - General Ulcer Assessment Start: 06/15/24 10:05 Freq: Status: Active Protocol: ONDINA Activity Type Activity Date Activity User E-sign Co-sign Detail Recorded Client Recorded Date Recorded By Document 06/15/24 10:05 RB [id number] 06/15/24 10:07 RB Document 06/22/24 09:54 MT [id number] 06/22/24 10:03 MT Document 06/29/24 09:49 KW [id number] 06/29/24 10:02 KW Document 07/06/24 10:01 RB [id number] 07/06/24 10:05 RB 06/15/24 06/22/24 06/29/24 10:05 09:54 09:49 [facility] Today's Visit Information Type of service Follow-up Visit Follow-up Visit (Physician/ROADWAY TECHNICIAN (Physician/ROADWAY TECHNICIAN ) ) Arrival Mode Ambulatory Ambulatory, Walker Transfer Assistance None Patient Identification Verified (Name & Yes Yes ) Patient Requires Transmission-Based No Precautions Vital Signs Temperature (97.8 F-99.1 F) 97 F L 97 F L 97.4 F L Temperature Source Temporal Temporal Temporal Pulse Rate (60-100) 70 65 62 Pulse Location Monitor Monitor Monitor Respiratory Rate (12-18) 18 18 18 Respiratory rate source Observation Observation Observation Oxygen Delivery Method Room Air Blood Pressure (90/60-120/80) 117/58 L 111/66 122/67 H Blood Pressure Mean (mm Hg) 77 81 85 Source Monitor Monitor Monitor Position Semi-Fowlers Sitting Semi-Fowlers Blood Pressure Location Left Arm Right Arm Left Arm History Since Last Visit- (Skip if this is Patient's initial visit) Have you changed medications since your No No last visit? Any new allergies or adverse reactions No No Had a fall/change in ADL's that may No No increase risk of falls Signs or symptoms of abuse and/or No No neglect since last visit Have you been in the hospital since your No No last visit? Has dressing in place as prescribed Yes Yes Yes Has compression in place as prescribed Yes Yes Yes Has offloadiing in place as prescribed No Yes N/A Experienced any changes in pain level or No Yes No management Left Footwear Regular Shoe Regular Shoe Right Footwear Regular Shoe Regular Shoe Pain Scale: 0-10 Numeric Is Patient Pain Free? Yes Yes Yes 07/06/24 10:01 - Today's Visit Information Type of service Follow-up Visit (Physician/ROADWAY TECHNICIAN ) Arrival Mode Ambulatory, Walker Transfer Assistance None Patient Identification Verified (Name & Yes ) Patient Requires Transmission-Based No Precautions Vital Signs Temperature (97.8 F-99.1 F) 96.1 F L Temperature Source Temporal Pulse Rate (60-100) 68 Pulse Location Monitor Respiratory Rate (12-18) 18 Respiratory rate source Observation Oxygen Delivery Method Blood Pressure (90/60-120/80) 108/61 Blood Pressure Mean (mm Hg) 76 Source Monitor Position Semi-Fowlers Blood Pressure Location Left Arm History Since Last Visit- (Skip if this is Patient's initial visit) Have you changed medications since your No last visit? Any new allergies or adverse reactions No Had a fall/change in ADL's that may No increase risk of falls Signs or symptoms of abuse and/or No neglect since last visit Have you been in the hospital since your No last visit? Has dressing in place as prescribed Yes Has compression in place as prescribed Yes Has offloadiing in place as prescribed No Experienced any changes in pain level or No management Left Footwear Right Footwear Pain Scale: 0-10 Numeric Is Patient Pain Free? Yes WC - Nurse 1 - General Ulcer Measurement Start: 06/15/24 10:05 Freq: Status: Active Protocol: Activity Type Activity Date Activity User E-sign Co-sign Detail Recorded Client Recorded Date Recorded By Document 06/15/24 10:05 RB [id number] 06/15/24 10:07 RB Document 06/22/24 09:54 MT [id number] 06/22/24 10:03 MT Document 06/29/24 09:49 KW [id number] 06/29/24 10:02 KW Document 07/06/24 10:01 RB [id number] 07/06/24 10:05 RB 06/15/24 06/22/24 06/29/24 10:05 09:54 09:49 Wound Center Nurse 1 #18 Left medial LE cluster -Combined with other wound No -Current Size (cm) - Length 8.5 9.3 17.5 -Current Size (cm) - Width 19 16.8 9.5 -Current Size (cm) - Depth 0.1 0.2 0.3 -Total Square Cm 161.5 156.24 166.25 -Photo Taken Yes -Tunneling No -Undermining/Tunneling No -Circular Undermining No -Exudate Amt Medium Medium Medium -Exudate Type Serosanguineous Serosanguineous Serosanguineous -Wound Margin Distinct, Thickened Distinct, Outline Outline Attached Attached -Granulation Amt Medium (34-66%) Medium (34-66%) Large (67-100%) -Granulation Quality Cricket Pale,Cricket Cricket,Red -Slough/Fibrin Yes -Necrosis Amt Medium (34-66%) Medium (34-66%) Medium (34-66%) -Necrotic Tissue Type Adherent Slough Adherent Slough Adherent Slough -Structure Exposed N/A -Texture (Marie-wound Skin Appearance) Assessed Assessed Assessed -Moisture (Marie-wound Skin Appearance) Assessed Assessed Assessed -Color (Marie-wound Skin Appearance) Assessed, Assessed Assessed, Hemosiderin Erythema Staining -Temperature (Marie-wound Skin No Abnormality No Abnormality No Abnormality Appearance) (Pt Warm) (Pt Warm) (Pt Warm) -Tenderness on Palpation (Marie-wound No No No Skin Appearance) -Ulcer Cleansing Wound Cleanser Soap and Water Soap and Water -Foul Odor after Cleansing No No No -Anesthetic Used 5% Lidocaine 5% Lidocaine 5% Lidocaine Gel Gel Gel Lower Limb Edema Present Yes Left Calf (cm) 46 Left Ankle (cm) 32.5 07/06/24 10:01 Wound Center Nurse 1 #18 Left medial LE cluster -Combined with other wound No -Current Size (cm) - Length 9 -Current Size (cm) - Width 18 -Current Size (cm) - Depth 0.2 -Total Square Cm 162 -Photo Taken -Tunneling No -Undermining/Tunneling No -Circular Undermining No -Exudate Amt Medium -Exudate Type Serosanguineous -Wound Margin Thickened & Rolled Under -Granulation Amt Medium (34-66%) -Granulation Quality Cricket -Slough/Fibrin Yes -Necrosis Amt Medium (34-66%) -Necrotic Tissue Type Adherent Slough -Structure Exposed N/A -Texture (Marie-wound Skin Appearance) Assessed, Friable, Scarring -Moisture (Marie-wound Skin Appearance) Assessed -Color (Marie-wound Skin Appearance) Assessed -Temperature (Marie-wound Skin No Abnormality Appearance) (Pt Warm) -Tenderness on Palpation (Marie-wound No Skin Appearance) -Ulcer Cleansing Wound Cleanser -Foul Odor after Cleansing No -Anesthetic Used 5% Lidocaine Gel Lower Limb Edema Present Yes Left Calf (cm) 44 Left Ankle (cm) 29 WC - Nurse 2 - General Ulcer CM Notes Start: 06/15/24 10:05 Freq: Status: Active Protocol: Activity Type Activity Date Activity User E-sign Co-sign Detail Recorded Client Recorded Date Recorded By Document 06/15/24 10:24 [id number] 06/15/24 10:38 Document 06/22/24 10:13 GM [id number] 06/22/24 10:34 GM Document 06/29/24 10:36 GM [id number] 06/29/24 10:58 GM Edit Result 06/29/24 10:36 GM (1) [id number] 07/03/24 11:36 GM Document 07/06/24 10:26 GM [id number] 07/06/24 10:35 GM (1) #18 Left medial LE cluster - Debridement, SubQ, ea addt'l 20sq cm => 7 or part thereof 06/15/24 06/22/24 06/29/24 10:24 10:13 10:36 Wound Center Nurse 2 #18 Left medial LE cluster -Time 10: 10:14 10:36 -Correct Patient Yes Yes Yes -Correct Side, Site, Position Yes Yes Yes -Correct Procedure Yes Yes Yes -Procedure Performed Yes Yes Yes -Type of Procedure Debridement Debridement Debridement -Clinical Debridement Subcutaneous Subcutaneous Subcutaneous -Tissue Removed Subcutaneous Subcutaneous Subcutaneous -Post Debridement (cm) - Length 9.5 9.2 9.2 -Post Debridement (cm) - Width 17.3 17.5 15.8 -Post Debridement (cm) - Depth 0.2 0.1 0.1 -Total Square (Post) (cm) 164.35 161.00 145.36 -Area of Debridement (cm) - Length 9.5 9.2 9.2 -Area of Debridement (cm) - Width 17.3 17.5 15.8 -Total Square (Area) (cm) 164.35 161.00 145.36 -Tunneling No No No -Undermining/Tunneling No No -Circular Undermining No No No -Wound/Ulcer Outcome Not Healed Not Healed Not Healed -Ulcer Cleansing Rinsed/ Rinsed/ Wound Cleanser Irrigated with Irrigated with Saline Saline -Foul Odor after Cleansing No No No -Bioengineered Tissue No No No -Bleeding Controlled with Pressure Pressure Pressure -Treatment Response Procedure Procedure Procedure Tolerated Well Tolerated Well Tolerated Well -Debridement - Subq, 1st 20sq cm Yes Yes Yes -Debridement, SubQ, ea addt'l 20sq cm 8 8 7 or part thereof Pain Scale: 0-10 Numeric Is Patient Pain Free? Yes Yes Yes 07/06/24 10:26 Wound Center Nurse 2 #18 Left medial LE cluster -Time 10:27 -Correct Patient Yes -Correct Side, Site, Position Yes -Correct Procedure Yes -Procedure Performed Yes -Type of Procedure Debridement -Clinical Debridement Subcutaneous -Tissue Removed Subcutaneous -Post Debridement (cm) - Length 8.9 -Post Debridement (cm) - Width 16.0 -Post Debridement (cm) - Depth 0.2 -Total Square (Post) (cm) 142.40 -Area of Debridement (cm) - Length 8.9 -Area of Debridement (cm) - Width 16.0 -Total Square (Area) (cm) 142.40 -Tunneling No -Undermining/Tunneling No -Circular Undermining No -Wound/Ulcer Outcome Not Healed -Ulcer Cleansing Rinsed/ Irrigated with Saline -Foul Odor after Cleansing No -Bioengineered Tissue No -Bleeding Controlled with Pressure -Treatment Response Procedure Tolerated Well -Debridement - Subq, 1st 20sq cm Yes -Debridement, SubQ, ea addt'l 20sq cm 7 or part thereof Pain Scale: 0-10 Numeric Is Patient Pain Free? Yes WC - Nurse 3 - General Ulcer D/C NN Start: 06/15/24 10:05 Freq: Status: Active Protocol: Activity Type Activity Date Activity User E-sign Co-sign Detail Recorded Client Recorded Date Recorded By Document 06/15/24 11:08 RB [id number] 06/15/24 11:09 RB Document 06/22/24 10:56 MT [id number] 06/22/24 10:59 MT Document 06/29/24 11:32 RB [id number] 06/29/24 11:33 RB Document 07/06/24 10:50 ML [id number] 07/06/24 10:51 ML 06/15/24 06/22/24 06/29/24 11:08 10:56 11:32 Wound Care Center Nurse 3 #18 Left medial LE cluster -Ulcer Cleansing Rinsed/ Rinsed/ Irrigated with Irrigated with Saline Saline -Foul Odor after Cleansing -Primary Dressing Applied Aquacel Extra, Aquacel Extra Aquacel Extra Fibracol Plus 4x4 -Other Dressing ABD ABD -Primary Dressing Covered/Secured with Dry Gauze & Dry Gauze & Roll Gauze, Roll Gauze, Secured with Secured with Tape Tape -Aquacel Extra 2 2 2 -Fibracol Plus 4x4 1 Left -Compression Wrap Kate Wrap -Tubular Bandage Single Layer Single Layer Single Layer -Size of Tubigrip Used Size F Size F Size F -Size F ($) 1 1 1 Treatment Response Procedure Procedure Tolerated Well Tolerated Well Pain Scale: 0-10 Numeric Is Patient Pain Free? Yes Yes Yes WC - Visit Discharge Discharge Condition Stable Stable Ambulatory Status Ambulatory, Ambulatory, Walker Walker Transportation Private Auto Private Auto Medication Reconcilliation completed & No No provided to patient/care provider Clinical Summary of Care Provided Yes Yes 07/06/24 10:50 Wound Care Center Nurse 3 #18 Left medial LE cluster -Ulcer Cleansing Rinsed/ Irrigated with Saline -Foul Odor after Cleansing No -Primary Dressing Applied Aquacel Extra -Other Dressing -Primary Dressing Covered/Secured with Dry Gauze & Roll Gauze, Secured with Tape -Aquacel Extra 1 -Fibracol Plus 4x4 Left -Compression Wrap -Tubular Bandage Single Layer -Size of Tubigrip Used Size F -Size F ($) 1 Treatment Response Pain Scale: 0-10 Numeric Is Patient Pain Free? Yes WC - Visit Discharge Discharge Condition Ambulatory Status Transportation Medication Reconcilliation completed & provided to patient/care provider Clinical Summary of Care Provided Assessment/Plan Assessment/Plan (1) Lymphedema: CODE(S): I89.0 - Lymphedema, not elsewhere classified (2) Hypertension: CODE(S): I10 - Essential (primary) hypertension QUALIFIERS: Hypertension type: primary hypertension Qualified Code(s): I10 - Essential (primary) hypertension (3) Hyperlipidemia: CODE(S): E78.5 - Hyperlipidemia, unspecified QUALIFIERS: Hyperlipidemia type: mixed hyperlipidemia Qualified Code(s): E78.2 - Mixed hyperlipidemia (4) History of DVT (deep vein thrombosis): CODE(S): Z86.718 - Personal history of other venous thrombosis and embolism (5) Venous insufficiency (chronic) (peripheral): CODE(S): I87.2 - Venous insufficiency (chronic) (peripheral) (6) Venous ulcer of left lower extremity with varicose veins: CODE(S): I83.029 - Varicose veins of left lower extremity with ulcer of unspecified site (7) Edema: CODE(S): R60.9 - Edema, unspecified QUALIFIERS: Edema type: unspecified Qualified Code(s): R60.9 - Edema, unspecified PLAN: Plan Evaluation and debridement of left medial LE ulcer performed today in clinic as annotated above. At home wound-care instructions: Will have him continue Aquacel Extra and ABD changed daily. Use superabsorber if drainage is heavy. Continue compression with F tubigrips b/l. Due to the delayed progress in wound healing of his venous ulcers, we discussed applying for advanced wound healing product for healing his ulcer. Due to the size of his ulcer, Theraskin application approval is being requested from his insurance as it is medically necessary for salvaging his limb and healing his ulcer. He underwent 2 applications of Theraskin to this ulcer. Since application of Theraskin he has had much improvement in epithelialization of his ulcer even though the overall size is not significantly changed there is progress. Off-loading: The patient was instructed to avoid pressure and friction on the affected areas. Reposition every 2 hours at minimum. Avoid prolonged standing and/or dangling of legs. When seated, feet should be elevated at chest level. Frequent ambulation is encouraged. Encouraged lymphedema pump use. Diet: Patient encouraged to increase protein intake while taking caution to avoid high carbohydrate and/or sugar intake. Labs/cultures/imaging: Wound culture showed Pseudomonas, Escherichia hermannii, Raoultella planticola, Vancomycin Resist. E. faecalis, Alcaligenes faecalis ssp faeca, Staphylococcus cohnii urealyti and anaerobic bacteria on 06/15/24 and he completed on Levofloxacin and Augmentin. Follow-up: Return in 1 week for wound care follow up and have secondary dressing changed by home health Tuesday and Tuesday. Return sooner or report to the emergency room should symptoms worsen, or new symptoms arise. Note: [employer] speech recognition financial administrative assistant software was used to create portions of this document. Sound-alike and misspelled words, as well as other financial administrative assistant errors may be contained in the documentation.
== END 2024-07-09 23:59 | disposition home or self-care (01) ==
LOC: WC 09:30
PROVIDERS: PCP Family Medicine; Referring Provider Family Medicine; Visit Provider Family Medicine
DX: I89.0 Lymphedema, not elsewhere classified (principal); L97.922 Non-pressure chronic ulcer of unspecified part of left lower leg with fat layer exposed; I83.029 Varicose veins of left lower extremity with ulcer of unspecified site; M79.605 Pain in left leg; Z86.718 Personal history of other venous thrombosis and embolism; M79.10 Myalgia, unspecified site; I10 Essential (primary) hypertension; E78.5 Hyperlipidemia, unspecified; I87.2 Venous insufficiency (chronic) (peripheral); R60.9 Edema, unspecified
CPT/HCPCS: 11042; 11045; 72072; 72114; 73620; 87070; 87075; 87077; 87186; 87205

== ENCOUNTER 2024-08-03 09:30 | Outpatient (RCR) | payer MEDICARE, OTHER, SELFPAY ==
[2024-07-10 00:41] VITALS: BP 114/57; PULSE 73; RESP 18; TEMP 36.4
[2024-07-13 10:10] VITALS: BP 111/63; PULSE 57; RESP 18; TEMP 35.3
--- NOTE | 2024-07-13 12:59 | PCM.WC.PN ---
History of Present Illness Date of Service: 07/13/24 Chief Complaint: venous ulcers of left lower extremity History of Wound: Mauricio is a 69 yo gentleman who is here today for evaluation of ulcers to to his bilateral lower legs. He has been treated multiple times in the past at the wound healing center for similar ulcers. The left LE ulcer started after he developed increased swelling and blisters of left leg in October and the right leg started sometime at the end of October. He was seen at PCP's office a culture was taken and it was resistant to several antibiotics. He was treated initially with Levaquin but had myalgias and then was treated with doxycycline which he finished 2 days ago. He denies improvement and is having swelling to his left calf and thigh. He has been having swelling to both lower extremities for many years and it has worsened over the last few months. He has not been compliant with compression. He has had increased pain especially in the left leg. He has clear yellow drainage and redness without odor or warmth. He is anti-coagulated on coumadin. He has been washing with Dial soap and witch ifrah. He had been using Collagen at times and using Calcium Alginate and covering with ABD pads during October. He was treated with 3M compression and Aquacel Ag. He was referred to the wound center for ongoing treatment. His ulcers have moderate to heavy drainage. He was recently hospitalized for cellulitis and edema for the last 10 days. He was in the hospital from 11/30/22 until 12/09/22 for treatment of cellulitis and edema. He underwent treatment with Vancomycin and IV lasix and compression. Discharged on 12/09/22. He returned to his assisted living apartment on Tuesday12/21/22. Subjective Subjective Mauricio is a 69-year-old male with longstanding history of chronic venous ulceration to the left lower extremity. Wound culture from 06/15/24 were positive for multiple bacteria and he completed antibiotic treatment. He has had decreased drainage this week. His edema is a little better this week and he has been using ABDs and Aquacel Extra. There has been no worsening in his ulcer overall this week. He is using MARCIO and size F Tubigrips for compression. 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 He continues to use his lymphedema pumps but continues to have pain with use of these pumps. Objective Data Objective Data Vital Signs: Vital Signs Temp Pulse Resp BP 95.5 F L 57 L 18 111/63 07/13/24 10:10 07/13/24 10:10 07/13/24 10:10 07/13/24 10:10 Physical Exam Const alert, oriented x3 and no apparent distress General Appearance: cooperative and comfortable HEENT normocephalic and head/scalp atraumatic Lymph Lymphatic: lymphedema moderate Resp normal respiratory effort Effort and Inspection: able to speak in complete sentences Cardio regular rate and regular rhythm Extremity General Extremity: edema bilateral lower extremity Details: severe Skin Wounds: wounds noted Wound Narrative: as in clinical panel Psych mental status grossly normal, thought process normal, cooperative and affect normal Debridement Note Debridement Note Wound debrided: left medial LE cluster Laterality: Left Type of Debridement: Excisional debridement Anesthesia Used: 4% Lidocaine Solution, 5% Lidocaine Gel and Cetacaine Depth: Down to and including healthy tissue and in the subcutaneous layer Percentage of wound debrided: 100 Instrument Used: - (misonix ultrasonic debridement) Tissue Removed: Yellow slough, devitalized tissue Severity: Fat Layer Exposed Amount of bleeding with debridement: Mild Bleeding Controlled with: Compression and gauze Patient tolerated procedure: Patient tolerated procedure well Post-Debridement Measurements and Additional Note: Post-Debridement Measurements/Treatment - Nurse 1 - General Ulcer Assessment Start: 07/13/24 10:10 Freq: Status: Active Protocol: ONDINA Activity Type Activity Date Activity User E-sign Co-sign Detail Recorded Client Recorded Date Recorded By Document 07/13/24 10:10 ARPIT [id number] 07/13/24 10:15 ARPIT 07/13/24 10:10 - Today's Visit Information Type of service Follow-up Visit (Physician/CORPORATE SCHEDULER ) Arrival Mode Ambulatory Transfer Assistance None Patient Identification Verified (Name & Yes ) Patient Requires Transmission-Based No Precautions Vital Signs Temperature (97.8 F-99.1 F) 95.5 F L Temperature Source Temporal Pulse Rate (60-100) 57 L Pulse Location Monitor Respiratory Rate (12-18) 18 Respiratory rate source Observation Blood Pressure (90/60-120/80) 111/63 Blood Pressure Mean (mm Hg) 79 Source Monitor Position Semi-Fowlers Blood Pressure Location Left Arm History Since Last Visit- (Skip if this is Patient's initial visit) Have you changed medications since your No last visit? Any new allergies or adverse reactions No Had a fall/change in ADL's that may No increase risk of falls Signs or symptoms of abuse and/or No neglect since last visit Have you been in the hospital since your No last visit? Has dressing in place as prescribed Yes Has compression in place as prescribed Yes Has offloadiing in place as prescribed No Experienced any changes in pain level or No management Pain Scale: 0-10 Numeric Is Patient Pain Free? Yes WC - Nurse 1 - General Ulcer Measurement Start: 07/13/24 10:10 Freq: Status: Active Protocol: Activity Type Activity Date Activity User E-sign Co-sign Detail Recorded Client Recorded Date Recorded By Document 07/13/24 10:10 RB [id number] 07/13/24 10:15 RB 07/13/24 10:10 Wound Center Nurse 1 #18 Left medial LE cluster -Combined with other wound No -Current Size (cm) - Length 8.5 -Current Size (cm) - Width 18 -Current Size (cm) - Depth 0.2 -Total Square Cm 153.0 -Photo Taken No -Tunneling No -Undermining/Tunneling No -Circular Undermining No -Exudate Amt Medium -Exudate Type Serosanguineous -Wound Margin Distinct, Outline Attached -Granulation Amt Medium (34-66%) -Granulation Quality [place] -Slough/Fibrin Yes -Necrosis Amt Small (1-33%) -Necrotic Tissue Type Adherent Slough -Structure Exposed N/A -Texture (Marie-wound Skin Appearance) Assessed -Moisture (Marie-wound Skin Appearance) Assessed -Color (Marie-wound Skin Appearance) Assessed -Temperature (Marie-wound Skin No Abnormality Appearance) (Pt Warm) -Tenderness on Palpation (Marie-wound No Skin Appearance) -Ulcer Cleansing Wound Cleanser -Foul Odor after Cleansing No -Anesthetic Used 5% Lidocaine Gel Lower Limb Edema Present Yes Left Calf (cm) 43 Left Ankle (cm) 28.2 WC - Nurse 2 - General Ulcer CM Notes Start: 07/13/24 10:10 Freq: Status: Active Protocol: Activity Type Activity Date Activity User E-sign Co-sign Detail Recorded Client Recorded Date Recorded By Document 07/13/24 10:47 GM [id number] 07/13/24 10:51 GM 07/13/24 10:47 Wound Center Nurse 2 #18 Left medial LE cluster -Time 10:47 -Correct Patient Yes -Correct Side, Site, Position Yes -Correct Procedure Yes -Procedure Performed Yes -Type of Procedure Debridement -Clinical Debridement Subcutaneous -Tissue Removed Subcutaneous -Post Debridement (cm) - Length 8.7 -Post Debridement (cm) - Width 16.0 -Post Debridement (cm) - Depth 0.2 -Total Square (Post) (cm) 139.20 -Area of Debridement (cm) - Length 8.7 -Area of Debridement (cm) - Width 16.0 -Total Square (Area) (cm) 139.20 -Tunneling No -Undermining/Tunneling No -Circular Undermining No -Wound/Ulcer Outcome Not Healed -Ulcer Cleansing Rinsed/ Irrigated with Saline -Foul Odor after Cleansing No -Bioengineered Tissue No -Bleeding Controlled with Pressure -Treatment Response Procedure Tolerated Well -Debridement - Subq, 1st 20sq cm Yes -Debridement, SubQ, ea addt'l 20sq cm 6 or part thereof Pain Scale: 0-10 Numeric Is Patient Pain Free? Yes - Nurse 3 - General Ulcer D/C NN Start: 07/13/24 10:10 Freq: Status: Active Protocol: Activity Type Activity Date Activity User E-sign Co-sign Detail Recorded Client Recorded Date Recorded By Document 07/13/24 10:59 DS [id number] 07/13/24 11:13 DS 07/13/24 10:59 Wound Care Center Nurse 3 #18 Left medial LE cluster -Primary Dressing Applied Fibracol Plus 4x4 -Primary Dressing Covered/Secured with Dry Gauze & Roll Gauze, Secured with Tape -Other Covering adaptic, -Fibracol Plus 4x4 1 Left -Compression Wrap Marcio Wrap -Tubular Bandage Single Layer -Size of Tubigrip Used Size F -Size F ($) 1 Pain Scale: 0-10 Numeric Is Patient Pain Free? Yes WC - Visit Discharge Discharge Condition Stable Ambulatory Status Ambulatory, Walker Transportation Private Auto Medication Reconcilliation completed & Yes provided to patient/care provider Clinical Summary of Care Provided Yes Assessment/Plan Assessment/Plan (1) Lymphedema: CODE(S): I89.0 - Lymphedema, not elsewhere classified (2) Hypertension: CODE(S): I10 - Essential (primary) hypertension QUALIFIERS: Hypertension type: primary hypertension Qualified Code(s): I10 - Essential (primary) hypertension (3) Hyperlipidemia: CODE(S): E78.5 - Hyperlipidemia, unspecified QUALIFIERS: Hyperlipidemia type: mixed hyperlipidemia Qualified Code(s): E78.2 - Mixed hyperlipidemia (4) History of DVT (deep vein thrombosis): CODE(S): Z86.718 - Personal history of other venous thrombosis and embolism (5) Venous insufficiency (chronic) (peripheral): CODE(S): I87.2 - Venous insufficiency (chronic) (peripheral) (6) Venous ulcer of left lower extremity with varicose veins: CODE(S): I83.029 - Varicose veins of left lower extremity with ulcer of unspecified site (7) Edema: CODE(S): R60.9 - Edema, unspecified QUALIFIERS: Edema type: unspecified Qualified Code(s): R60.9 - Edema, unspecified PLAN: Plan Evaluation and debridement of left medial LE ulcer performed today in clinic as annotated above. At home wound-care instructions: Will have him continue Aquacel Extra or Fibracol and ABD changed daily. Use superabsorber if drainage is heavy. Continue compression with F tubigrips b/l. Due to the delayed progress in wound healing of his venous ulcers, we discussed applying for advanced wound healing product for healing his ulcer. Due to the size of his ulcer, Theraskin application approval is being requested from his insurance as it is medically necessary for salvaging his limb and healing his ulcer. He underwent 2 applications of Theraskin to this ulcer. Since application of Theraskin he has had much improvement in epithelialization of his ulcer even though the overall size is not significantly changed there is progress. Off-loading: The patient was instructed to avoid pressure and friction on the affected areas. Reposition every 2 hours at minimum. Avoid prolonged standing and/or dangling of legs. When seated, feet should be elevated at chest level. Frequent ambulation is encouraged. Encouraged lymphedema pump use. Diet: Patient encouraged to increase protein intake while taking caution to avoid high carbohydrate and/or sugar intake. Labs/cultures/imaging: Wound culture showed Pseudomonas, Escherichia hermannii, Raoultella planticola, Vancomycin Resist. E. faecalis, Alcaligenes faecalis ssp faeca, Staphylococcus cohnii urealyti and anaerobic bacteria on 06/15/24 and he completed on Levofloxacin and Augmentin. Follow-up: Return in 1 week for wound care follow up and have secondary dressing changed by [facility] and Tuesday. Return sooner or report to the emergency room should symptoms worsen, or new symptoms arise. Note: [employer] speech recognition acquisition cost estimator software was used to create portions of this document. Sound-alike and misspelled words, as well as other acquisition cost estimator errors may be contained in the documentation.
[2024-07-27 10:08] VITALS: BP 128/78; PULSE 62; RESP 18; TEMP 36
--- NOTE | 2024-07-27 12:18 | PCM.WC.PN ---
History of Present Illness Date of Service: 07/27/24 Chief Complaint: venous ulcers of left lower extremity History of Wound: Mauricio is a 69 yo gentleman who is here today for evaluation of ulcers to to his bilateral lower legs. He has been treated multiple times in the past at the wound healing center for similar ulcers. The left LE ulcer started after he developed increased swelling and blisters of left leg in October and the right leg started sometime at the end of October. He was seen at PCP's office a culture was taken and it was resistant to several antibiotics. He was treated initially with Levaquin but had myalgias and then was treated with doxycycline which he finished 2 days ago. He denies improvement and is having swelling to his left calf and thigh. He has been having swelling to both lower extremities for many years and it has worsened over the last few months. He has not been compliant with compression. He has had increased pain especially in the left leg. He has clear yellow drainage and redness without odor or warmth. He is anti-coagulated on coumadin. He has been washing with Dial soap and witch ifrah. He had been using Collagen at times and using Calcium Alginate and covering with ABD pads during October. He was treated with 3M compression and Aquacel Ag. He was referred to the wound center for ongoing treatment. His ulcers have moderate to heavy drainage. He was recently hospitalized for cellulitis and edema for the last 10 days. He was in the hospital from 11/30/22 until 12/09/22 for treatment of cellulitis and edema. He underwent treatment with Vancomycin and IV lasix and compression. Discharged on 12/09/22. He returned to his assisted living apartment on Tuesday12/21/22. Subjective Subjective Mauricio is a 69-year-old male with longstanding history of chronic venous ulceration to the left lower extremity. Wound culture from 06/15/24 were positive for multiple bacteria and he completed antibiotic treatment. He has had decreased drainage this week. His edema is a little better this week and he has been using ABDs and Aquacel Extra. There has been no worsening in his ulcer overall this week. He is using MARCIO and size F Tubigrips for compression. 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 He continues to use his lymphedema pumps but continues to have pain with use of these pumps. Objective Data Objective Data Vital Signs: Vital Signs Temp Pulse Resp BP 96.8 F L 62 18 128/78 H 07/27/24 10:08 07/27/24 10:08 07/27/24 10:08 07/27/24 10:08 Physical Exam Const alert, oriented x3 and no apparent distress General Appearance: cooperative and comfortable HEENT normocephalic and head/scalp atraumatic Lymph Lymphatic: lymphedema moderate Resp normal respiratory effort Effort and Inspection: able to speak in complete sentences Cardio regular rate and regular rhythm Extremity General Extremity: edema bilateral lower extremity Details: severe Skin Wounds: wounds noted Wound Narrative: as in clinical panel Psych mental status grossly normal, thought process normal, cooperative and affect normal Debridement Note Debridement Note Wound debrided: left medial LE cluster Laterality: Left Type of Debridement: Excisional debridement Anesthesia Used: 4% Lidocaine Solution, 5% Lidocaine Gel and Cetacaine Depth: Down to and including healthy tissue and in the subcutaneous layer Percentage of wound debrided: 100 Instrument Used: - (misonix ultrasonic debridement) Tissue Removed: Yellow slough, devitalized tissue Severity: Fat Layer Exposed Amount of bleeding with debridement: Mild Bleeding Controlled with: Compression and gauze Patient tolerated procedure: Patient tolerated procedure well Post-Debridement Measurements and Additional Note: Post-Debridement Measurements/Treatment - Nurse 1 - General Ulcer Assessment Start: 07/13/24 10:10 Freq: Status: Active Protocol: ONDINA Activity Type Activity Date Activity User E-sign Co-sign Detail Recorded Client Recorded Date Recorded By Document 07/13/24 10:10 RB [id number] 07/13/24 10:15 RB Document 07/27/24 10:08 RB [id number] 07/27/24 10:10 RB 07/13/24 07/27/24 10:10 10:08 - Today's Visit Information Type of service Follow-up Visit Follow-up Visit (Physician/CHRISTIAN SCIENCE PRACTITIONER (Physician/CHRISTIAN SCIENCE PRACTITIONER ) ) Arrival Mode Ambulatory Ambulatory, Walker Transfer Assistance None None Patient Identification Verified (Name & Yes Yes ) Patient Requires Transmission-Based No No Precautions Vital Signs Temperature (97.8 F-99.1 F) 95.5 F L 96.8 F L Temperature Source Temporal Temporal Pulse Rate (60-100) 57 L 62 Pulse Location Monitor Monitor Respiratory Rate (12-18) 18 18 Respiratory rate source Observation Observation Blood Pressure (90/60-120/80) 111/63 128/78 H Blood Pressure Mean (mm Hg) 79 94 Source Monitor Monitor Position Semi-Fowlers Semi-Fowlers Blood Pressure Location Left Arm Left Arm History Since Last Visit- (Skip if this is Patient's initial visit) Have you changed medications since your No No last visit? Any new allergies or adverse reactions No No Had a fall/change in ADL's that may No No increase risk of falls Signs or symptoms of abuse and/or No No neglect since last visit Have you been in the hospital since your No No last visit? Has dressing in place as prescribed Yes Yes Has compression in place as prescribed Yes Yes Has offloadiing in place as prescribed No No Experienced any changes in pain level or No No management Pain Scale: 0-10 Numeric Is Patient Pain Free? Yes Yes WC - Nurse 1 - General Ulcer Measurement Start: 07/13/24 10:10 Freq: Status: Active Protocol: Activity Type Activity Date Activity User E-sign Co-sign Detail Recorded Client Recorded Date Recorded By Document 07/13/24 10:10 RB [id number] 07/13/24 10:15 RB Document 07/27/24 10:08 RB [id number] 07/27/24 10:10 RB 07/13/24 07/27/24 10:10 10:08 Wound Center Nurse 1 #18 Left medial LE cluster -Combined with other wound No No -Current Size (cm) - Length 8.5 9 -Current Size (cm) - Width 18 18.5 -Current Size (cm) - Depth 0.2 0.2 -Total Square Cm 153.0 166.5 -Photo Taken No -Tunneling No No -Undermining/Tunneling No No -Circular Undermining No No -Exudate Amt Medium Large -Exudate Type Serosanguineous Serosanguineous -Wound Margin Distinct, Distinct, Outline Outline Attached Attached -Granulation Amt Medium (34-66%) Medium (34-66%) -Granulation Quality Grace Grace -Slough/Fibrin Yes Yes -Necrosis Amt Small (1-33%) Medium (34-66%) -Necrotic Tissue Type Adherent Slough Adherent Slough -Structure Exposed N/A N/A -Texture (Marie-wound Skin Appearance) Assessed Assessed,Rash -Moisture (Marie-wound Skin Appearance) Assessed Assessed -Color (Marie-wound Skin Appearance) Assessed Assessed, Hemosiderin Staining -Temperature (Marie-wound Skin No Abnormality No Abnormality Appearance) (Pt Warm) (Pt Warm) -Tenderness on Palpation (Marie-wound No No Skin Appearance) -Ulcer Cleansing Wound Cleanser Wound Cleanser -Foul Odor after Cleansing No No -Anesthetic Used 5% Lidocaine 5% Lidocaine Gel Gel Lower Limb Edema Present Yes Yes Left Calf (cm) 43 43.2 Left Ankle (cm) 28.2 28.5 WC - Nurse 2 - General Ulcer CM Notes Start: 07/13/24 10:10 Freq: Status: Active Protocol: Activity Type Activity Date Activity User E-sign Co-sign Detail Recorded Client Recorded Date Recorded By Document 07/13/24 10:47 GM [id number] 07/13/24 10:51 GM Document 07/27/24 10:20 GM [id number] 07/27/24 10:21 GM Edit Result 07/27/24 10:20 GM (1) [id number] 07/27/24 10:29 GM (1) #18 Left medial LE cluster - Post Debridement (cm) - Length => 8.7 - Post Debridement (cm) - Width => 16 - Post Debridement (cm) - Depth => 0.1 - Total Square (Post) (cm) => 139.2 - Area of Debridement (cm) - Length => 8.7 - Area of Debridement (cm) - Width => 16.0 - Total Square (Area) (cm) => 139.20 - Debridement, SubQ, ea addt'l 20sq cm => 6 or part thereof 07/13/24 07/27/24 10:47 10:20 Wound Center Nurse 2 #18 Left medial LE cluster -Time 10:47 10:20 -Correct Patient Yes Yes -Correct Side, Site, Position Yes Yes -Correct Procedure Yes Yes -Procedure Performed Yes Yes -Type of Procedure Debridement Debridement -Clinical Debridement Subcutaneous Subcutaneous -Tissue Removed Subcutaneous Subcutaneous -Post Debridement (cm) - Length 8.7 8.7 -Post Debridement (cm) - Width 16.0 16 -Post Debridement (cm) - Depth 0.2 0.1 -Total Square (Post) (cm) 139.20 139.2 -Area of Debridement (cm) - Length 8.7 8.7 -Area of Debridement (cm) - Width 16.0 16.0 -Total Square (Area) (cm) 139.20 139.20 -Tunneling No No -Undermining/Tunneling No No -Circular Undermining No No -Wound/Ulcer Outcome Not Healed Not Healed -Ulcer Cleansing Rinsed/ Rinsed/ Irrigated with Irrigated with Saline Saline -Foul Odor after Cleansing No No -Bioengineered Tissue No No -Bleeding Controlled with Pressure Pressure -Treatment Response Procedure Procedure Tolerated Well Tolerated Well -Debridement - Subq, 1st 20sq cm Yes Yes -Debridement, SubQ, ea addt'l 20sq cm 6 6 or part thereof Pain Scale: 0-10 Numeric Is Patient Pain Free? Yes Yes - Nurse 3 - General Ulcer D/C NN Start: 07/13/24 10:10 Freq: Status: Active Protocol: Activity Type Activity Date Activity User E-sign Co-sign Detail Recorded Client Recorded Date Recorded By Document 07/13/24 10:59 DS [id number] 07/13/24 11:13 DS Document 07/27/24 10:50 RB [id number] 07/27/24 10:54 RB 07/13/24 07/27/24 10:59 10:50 Wound Care Center Nurse 3 #18 Left medial LE cluster -Ulcer Cleansing Wound Cleanser -Primary Dressing Applied Fibracol Plus Aquacel Extra 4x4 -Other Dressing two ABD -Primary Dressing Covered/Secured with Dry Gauze & Dry Gauze & Roll Gauze, Roll Gauze, Secured with Secured with Tape Tape -Other Covering adaptic, -Aquacel Extra 2 -Fibracol Plus 4x4 1 Left -Compression Wrap Marcio Wrap -Tubular Bandage Single Layer Single Layer -Size of Tubigrip Used Size F Size F -Size F ($) 1 1 -Other marcio Treatment Response Procedure Tolerated Well Pain Scale: 0-10 Numeric Is Patient Pain Free? Yes Yes Teaching: Wound Center Compression Wraps & Stockings -Person Taught Patient -Teaching Method Discussion, Demonstration -Response to teaching Reinforcement Needed WC - Visit Discharge Discharge Condition Stable Stable Ambulatory Status Ambulatory, Ambulatory, Walker Walker Transportation Private Auto Private Auto Medication Reconcilliation completed & Yes No provided to patient/care provider Clinical Summary of Care Provided Yes Yes Assessment/Plan Assessment/Plan (1) Lymphedema: CODE(S): I89.0 - Lymphedema, not elsewhere classified (2) Hypertension: CODE(S): I10 - Essential (primary) hypertension QUALIFIERS: Hypertension type: primary hypertension Qualified Code(s): I10 - Essential (primary) hypertension (3) Hyperlipidemia: CODE(S): E78.5 - Hyperlipidemia, unspecified QUALIFIERS: Hyperlipidemia type: mixed hyperlipidemia Qualified Code(s): E78.2 - Mixed hyperlipidemia (4) History of DVT (deep vein thrombosis): CODE(S): Z86.718 - Personal history of other venous thrombosis and embolism (5) Venous insufficiency (chronic) (peripheral): CODE(S): I87.2 - Venous insufficiency (chronic) (peripheral) (6) Venous ulcer of left lower extremity with varicose veins: CODE(S): I83.029 - Varicose veins of left lower extremity with ulcer of unspecified site (7) Edema: CODE(S): R60.9 - Edema, unspecified QUALIFIERS: Edema type: unspecified Qualified Code(s): R60.9 - Edema, unspecified PLAN: Plan Evaluation and debridement of left medial LE ulcer performed today in clinic as annotated above. At home wound-care instructions: Will have him continue Aquacel Extra or Fibracol and ABD changed daily. Use superabsorber if drainage is heavy. Continue compression with F tubigrips b/l. Due to the delayed progress in wound healing of his venous ulcers, we discussed applying for advanced wound healing product for healing his ulcer. Due to the size of his ulcer, Therask[employer] application approval is being requested from his insurance as it is medically necessary for salvaging his limb and healing his ulcer. He underwent 2 applications of Theraskin to this ulcer. Since application of Theraskin he has had much improvement in epithelialization of his ulcer even though the overall size is not significantly changed there is progress. Off-loading: The patient was instructed to avoid pressure and friction on the affected areas. Reposition every 2 hours at minimum. Avoid prolonged standing and/or dangling of legs. When seated, feet should be elevated at chest level. Frequent ambulation is encouraged. Encouraged lymphedema pump use. Diet: Patient encouraged to increase protein intake while taking caution to avoid high carbohydrate and/or sugar intake. Labs/cultures/imaging: Wound culture showed Pseudomonas, Escherichia hermannii, Raoultella planticola, Vancomycin Resist. E. faecalis, Alcaligenes faecalis ssp faeca, Staphylococcus cohnii urealyti and anaerobic bacteria on 06/15/24 and he completed on Levofloxacin and Augmentin. Follow-up: Return in 1 week for wound care follow up and have dressing changed by home health Tuesday and Tuesday. Return sooner or report to the emergency room should symptoms worsen, or new symptoms arise. Note: [employer] speech recognition emergency department aide software was used to create portions of this document. Sound-alike and misspelled words, as well as other emergency department aide errors may be contained in the documentation.
[2024-08-03 09:39] VITALS: BP 122/66; PULSE 69; RESP 18; TEMP 36.2
--- NOTE | 2024-08-03 12:56 | PN.PCM_ITS ---
History of Present Illness Date of Service: 08/03/24 Chief Complaint: venous ulcers of left lower extremity History of Wound: Mauricio is a 69 yo gentleman who is here today for evaluation of ulcers to to his bilateral lower legs. He has been treated multiple times in the past at the wound healing center for similar ulcers. The left LE ulcer started after he developed increased swelling and blisters of left leg in October and the right leg started sometime at the end of October. He was seen at PCP's office a culture was taken and it was resistant to several antibiotics. He was treated initially with Levaquin but had myalgias and then was treated with doxycycline which he finished 2 days ago. He denies improvement and is having swelling to his left calf and thigh. He has been having swelling to both lower extremities for many years and it has worsened over the last few months. He has not been compliant with compression. He has had increased pain especially in the left leg. He has clear yellow drainage and redness without odor or warmth. He is anti- coagulated on coumadin. He has been washing with Dial soap and witch ifrah. He had been using Collagen at times and using Calcium Alginate and covering with ABD pads during October. He was treated with 3M compression and Aquacel Ag. He was referred to the wound center for ongoing treatment. His ulcers have moderate to heavy drainage. He was recently hospitalized for cellulitis and edema for the last 10 days. He was in the hospital from 11/30/22 until 12/09/22 for treatment of cellulitis and edema. He underwent treatment with Vancomycin and IV lasix and compression. Discharged on 12/09/22. He returned to his assisted living apartment on Tuesday12/21/22. Subjective Subjective Mauricio is a 69-year-old male with longstanding history of chronic venous ulceration to the left lower extremity. Wound culture from 06/15/24 were positive for multiple bacteria and he completed antibiotic treatment. He has had decreased drainage this week. His edema is a little better this week and he has been using ABDs and Aquacel Extra. There has been no worsening in his ulcer overall this week. He is using MARCIO and size F Tubigrips for compression. 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 He continues to use his lymphedema pumps but continues to have pain with use of these pumps. Objective Data Objective Data Vital Signs: Vital Signs Temp Pulse Resp BP O2 Del Method 97.1 F L 69 18 122/66 H Room Air 08/03/24 09:39 08/03/24 09:39 08/03/24 09:39 08/03/24 09:39 08/03/24 09:39 Oxygen Delivery Method Room Air Physical Exam Const alert, oriented x3 and no apparent distress General Appearance: cooperative and comfortable HEENT normocephalic and head/scalp atraumatic Lymph Lymphatic: lymphedema moderate Resp normal respiratory effort Effort and Inspection: able to speak in complete sentences Cardio regular rate and regular rhythm Extremity General Extremity: edema bilateral lower extremity Details: severe Skin Wounds: wounds noted Wound Narrative: as in clinical panel Psych mental status grossly normal, thought process normal, cooperative and affect normal Debridement Note Debridement Note Wound debrided: Left medial LE ulcer Laterality: Left Type of Debridement: Excisional debridement Anesthesia Used: 5% Lidocaine Gel and Cetacaine Depth: Down to and including healthy tissue and in the subcutaneous layer Percentage of wound debrided: 100 Instrument Used: - (Misonix ultrasonic debridement) Tissue Removed: Yellow slough, devitalized tissue Severity: Fat Layer Exposed Amount of bleeding with debridement: Mild Bleeding Controlled with: Compression and gauze Patient tolerated procedure: Patient tolerated procedure well Post-Debridement Measurements and Additional Note: Post-Debridement Measurements/Treatment - Nurse 1 - General Ulcer Assessment Start: 07/13/24 10:10 Freq: Status: Active Protocol: ONDINA Activity Type Activity Date Activity User E-sign Co-sign Detail Recorded Client Recorded Date Recorded By Document 07/13/24 10:10 RB [id number] 07/13/24 10:15 RB Document 07/27/24 10:08 RB [id number] 07/27/24 10:10 RB Document 08/03/24 09:39 KW [id number] 08/03/24 09:55 KW 07/13/24 07/27/24 08/03/24 10:10 10:08 09:39 - Today's Visit Information Type of service Follow-up Visit Follow-up Visit Follow-up Visit (Physician/GLASS SANDER BELT (Physician/GLASS SANDER BELT (Physician/GLASS SANDER BELT ) ) ) Arrival Mode Ambulatory Ambulatory, Ambulatory, Walker Walker Transfer Assistance None None Patient Identification Verified (Name & Yes Yes Yes ) Patient Requires Transmission-Based No No Precautions Vital Signs Temperature (97.8 F-99.1 F) 95.5 F L 96.8 F L 97.1 F L Temperature Source Temporal Temporal Temporal Pulse Rate (60-100) 57 L 62 69 Pulse Location Monitor Monitor Monitor Respiratory Rate (12-18) 18 18 18 Respiratory rate source Observation Observation Observation Oxygen Delivery Method Room Air Blood Pressure (90/60-120/80) 111/63 128/78 H 122/66 H Blood Pressure Mean (mm Hg) 79 94 84 Source Monitor Monitor Monitor Position Semi-Fowlers Semi-Fowlers Semi-Fowlers Blood Pressure Location Left Arm Left Arm Right Forearm History Since Last Visit- (Skip if this is Patient's initial visit) Have you changed medications since your No No No last visit? Any new allergies or adverse reactions No No No Had a fall/change in ADL's that may No No No increase risk of falls Signs or symptoms of abuse and/or No No No neglect since last visit Have you been in the hospital since your No No No last visit? Has dressing in place as prescribed Yes Yes Yes Has compression in place as prescribed Yes Yes Yes Has offloadiing in place as prescribed No No N/A Experienced any changes in pain level or No No No management Left Footwear Regular Shoe Right Footwear Regular Shoe Pain Scale: 0-10 Numeric Is Patient Pain Free? Yes Yes Yes WC - Nurse 1 - General Ulcer Measurement Start: 07/13/24 10:10 Freq: Status: Active Protocol: Activity Type Activity Date Activity User E-sign Co-sign Detail Recorded Client Recorded Date Recorded By Document 07/13/24 10:10 RB [id number] 07/13/24 10:15 RB Document 07/27/24 10:08 RB [id number] 07/27/24 10:10 RB Document 08/03/24 09:39 KW [id number] 08/03/24 09:55 KW 07/13/24 07/27/24 08/03/24 10:10 10:08 09:39 Wound Center Nurse 1 #18 Left medial LE cluster -Combined with other wound No No -Current Size (cm) - Length 8.5 9 19.5 -Current Size (cm) - Width 18 18.5 10 -Current Size (cm) - Depth 0.2 0.2 0.1 -Total Square Cm 153.0 166.5 195.0 -Date of Last Picture (Recall this 08/03/24 field) -Photo Taken No -Tunneling No No -Undermining/Tunneling No No -Circular Undermining No No -Exudate Amt Medium Large Medium -Exudate Type Serosanguineous Serosanguineous Serosanguineous -Wound Margin Distinct, Distinct, Distinct, Outline Outline Outline Attached Attached Attached -Granulation Amt Medium (34-66%) Medium (34-66%) Large (67-100%) -Granulation Quality [place] Red -Slough/Fibrin Yes Yes -Necrosis Amt Small (1-33%) Medium (34-66%) Small (1-33%) -Necrotic Tissue Type Adherent Slough Adherent Slough Adherent Slough -Structure Exposed N/A N/A -Texture (Marie-wound Skin Appearance) Assessed Assessed,Rash Assessed -Moisture (Marie-wound Skin Appearance) Assessed Assessed Assessed,Dry/ Scaly -Color (Marie-wound Skin Appearance) Assessed Assessed, Assessed, Hemosiderin Hemosiderin Staining Staining -Temperature (Marie-wound Skin No Abnormality No Abnormality No Abnormality Appearance) (Pt Warm) (Pt Warm) (Pt Warm) -Tenderness on Palpation (Marie-wound No No No Skin Appearance) -Ulcer Cleansing Wound Cleanser Wound Cleanser Soap and Water -Foul Odor after Cleansing No No No -Anesthetic Used 5% Lidocaine 5% Lidocaine 5% Lidocaine Gel Gel Gel Lower Limb Edema Present Yes Yes Right Calf (cm) 46 Right Ankle (cm) 28.5 Left Calf (cm) 43 43.2 42 Left Ankle (cm) 28.2 28.5 29 WC - Nurse 2 - General Ulcer CM Notes Start: 07/13/24 10:10 Freq: Status: Active Protocol: Activity Type Activity Date Activity User E-sign Co-sign Detail Recorded Client Recorded Date Recorded By Document 07/13/24 10:47 GM [id number] 07/13/24 10:51 GM Document 07/27/24 10:20 GM [id number] 07/27/24 10:21 GM Edit Result 07/27/24 10:20 GM (1) [id number] 07/27/24 10:29 GM Document 08/03/24 10:05 GM [id number] 08/03/24 10:24 GM (1) #18 Left medial LE cluster - Post Debridement (cm) - Length => 8.7 - Post Debridement (cm) - Width => 16 - Post Debridement (cm) - Depth => 0.1 - Total Square (Post) (cm) => 139.2 - Area of Debridement (cm) - Length => 8.7 - Area of Debridement (cm) - Width => 16.0 - Total Square (Area) (cm) => 139.20 - Debridement, SubQ, ea addt'l 20sq cm => 6 or part thereof 07/13/24 07/27/24 08/03/24 10:47 10:20 10:05 Wound Center Nurse 2 #18 Left medial LE cluster -Time 10:47 10:20 10:09 -Correct Patient Yes Yes Yes -Correct Side, Site, Position Yes Yes Yes -Correct Procedure Yes Yes Yes -Procedure Performed Yes Yes Yes -Type of Procedure Debridement Debridement Debridement -Clinical Debridement Subcutaneous Subcutaneous Subcutaneous -Tissue Removed Subcutaneous Subcutaneous Subcutaneous -Post Debridement (cm) - Length 8.7 8.7 9.0 -Post Debridement (cm) - Width 16.0 16 16.0 -Post Debridement (cm) - Depth 0.2 0.1 0.1 -Total Square (Post) (cm) 139.20 139.2 144.00 -Area of Debridement (cm) - Length 8.7 8.7 9.0 -Area of Debridement (cm) - Width 16.0 16.0 16.0 -Total Square (Area) (cm) 139.20 139.20 144.00 -Tunneling No No No -Undermining/Tunneling No No No -Circular Undermining No No No -Wound/Ulcer Outcome Not Healed Not Healed Not Healed -Ulcer Cleansing Rinsed/ Rinsed/ Rinsed/ Irrigated with Irrigated with Irrigated with Saline Saline Saline -Foul Odor after Cleansing No No No -Bioengineered Tissue No No No -Bleeding Controlled with Pressure Pressure Pressure -Treatment Response Procedure Procedure Procedure Tolerated Well Tolerated Well Tolerated Well -Debridement - Subq, 1st 20sq cm Yes Yes Yes -Debridement, SubQ, ea addt'l 20sq cm 6 6 7 or part thereof Pain Scale: 0-10 Numeric Is Patient Pain Free? Yes Yes Yes WC - Nurse 3 - General Ulcer D/C NN Start: 07/13/24 10:10 Freq: Status: Active Protocol: Activity Type Activity Date Activity User E-sign Co-sign Detail Recorded Client Recorded Date Recorded By Document 07/13/24 10:59 DS [id number] 07/13/24 11:13 DS Document 07/27/24 10:50 RB [id number] 07/27/24 10:54 RB Document 08/03/24 10:48 RB [id number] 08/03/24 10:50 RB 07/13/24 07/27/24 08/03/24 10:59 10:50 10:48 Wound Care Center Nurse 3 #18 Left medial LE cluster -Ulcer Cleansing Wound Cleanser Rinsed/ Irrigated with Saline -Primary Dressing Applied Fibracol Plus Aquacel Extra Aquacel Extra, 4x4 Fibracol Plus 4x4 -Other Dressing two ABD abd -Primary Dressing Covered/Secured with Dry Gauze & Dry Gauze & Dry Gauze & Roll Gauze, Roll Gauze, Roll Gauze, Secured with Secured with Secured with Tape Tape Tape -Other Covering adaptic, -Aquacel Extra 2 2 -Fibracol Plus 4x4 1 1 -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) LLE Aquacel extra and RLE fibracol / roll gauze wili -Tubular Bandage Single Layer -Size of Tubigrip Used Size F -Size F ($) 2 Left -Compression Wrap Marcio Wrap -Tubular Bandage Single Layer Single Layer -Size of Tubigrip Used Size F Size F -Size F ($) 1 1 -Other marcio marcio Treatment Response Procedure Procedure Tolerated Well Tolerated Well Pain Scale: 0-10 Numeric Is Patient Pain Free? Yes Yes Yes Teaching: Wound Center Compression Wraps & Stockings -Person Taught Patient -Teaching Method Discussion, Demonstration -Response to teaching Reinforcement Needed WC - Visit Discharge Discharge Condition Stable Stable Stable Ambulatory Status Ambulatory, Ambulatory, Ambulatory, Walker Walker Walker Transportation Private Auto Private Auto Private Auto Medication Reconcilliation completed & Yes No No provided to patient/care provider Clinical Summary of Care Provided Yes Yes Yes Assessment/Plan Assessment/Plan (1) Lymphedema: CODE(S): I89.0 - Lymphedema, not elsewhere classified (2) Hypertension: CODE(S): I10 - Essential (primary) hypertension QUALIFIERS: Hypertension type: primary hypertension Qualified Code(s): I10 - Essential (primary) hypertension (3) Hyperlipidemia: CODE(S): E78.5 - Hyperlipidemia, unspecified QUALIFIERS: Hyperlipidemia type: mixed hyperlipidemia Qualified Code(s): E78.2 - Mixed hyperlipidemia (4) History of DVT (deep vein thrombosis): CODE(S): Z86.718 - Personal history of other venous thrombosis and embolism (5) Venous insufficiency (chronic) (peripheral): CODE(S): I87.2 - Venous insufficiency (chronic) (peripheral) (6) Venous ulcer of left lower extremity with varicose veins: CODE(S): I83.029 - Varicose veins of left lower extremity with ulcer of unspecified site (7) Edema: CODE(S): R60.9 - Edema, unspecified QUALIFIERS: Edema type: unspecified Qualified Code(s): R60.9 - Edema, unspecified PLAN: Plan Evaluation and debridement of left medial LE ulcer performed today in clinic as annotated above. At home wound-care instructions: Will have him continue Aquacel Extra or Fibracol and ABD changed daily. Use superabsorber if drainage is heavy. Continue compression with F tubigrips b/l. Will have him also use Fibracol on a blistered area of right lateral leg. Due to the delayed progress in wound healing of his venous ulcers, we discussed applying for advanced wound healing product for healing his ulcer. Due to the size of his ulcer, Theraskin application approval is being requested from his insurance as it is medically necessary for salvaging his limb and healing his ulcer. He underwent 2 applications of Theraskin to this ulcer. Since application of Theraskin he has had much improvement in epithelialization of his ulcer even though the overall size is not significantly changed there is progress. Off-loading: The patient was instructed to avoid pressure and friction on the affected areas. Reposition every 2 hours at minimum. Avoid prolonged standing and/or dangling of legs. When seated, feet should be elevated at chest level. Frequent ambulation is encouraged. Encouraged lymphedema pump use. Diet: Patient encouraged to increase protein intake while taking caution to avoid high carbohydrate and/or sugar intake. Labs/cultures/imaging: Wound culture showed Pseudomonas, Escherichia hermannii, Raoultella planticola, Vancomycin Resist. E. faecalis, Alcaligenes faecalis ssp faeca, Staphylococcus cohnii urealyti and anaerobic bacteria on 06/15/24 and he completed on Levofloxacin and Augmentin. Follow-up: Return in 1 week for wound care follow up and have dressing changed by home health Tuesday and Tuesday. Return sooner or report to the emergency room should symptoms worsen, or new symptoms arise. Note: [employer] speech recognition deflash and wash operator software was used to create portions of this document. Sound-alike and misspelled words, as well as other deflash and wash operator errors may be contained in the documentation.
--- NOTE | 2024-08-09 10:14 | WC ---
PHOTO 08/03/24 LEFT JOANNA SO
== END 2024-08-09 23:59 | disposition home or self-care (01) ==
LOC: WC 09:30
PROVIDERS: PCP Family Medicine; Referring Provider Family Medicine; Visit Provider Family Medicine
DX: I89.0 Lymphedema, not elsewhere classified (principal); L97.922 Non-pressure chronic ulcer of unspecified part of left lower leg with fat layer exposed; I83.029 Varicose veins of left lower extremity with ulcer of unspecified site; Z86.718 Personal history of other venous thrombosis and embolism; I87.2 Venous insufficiency (chronic) (peripheral); R60.9 Edema, unspecified; E78.2 Mixed hyperlipidemia
CPT/HCPCS: 11042; 11045

== ENCOUNTER 2024-08-31 09:30 | Outpatient (RCR) | payer MEDICARE, OTHER, SELFPAY ==
[2024-08-10 00:22] VITALS: BP 114/57; PULSE 73; RESP 18; TEMP 36.4
[2024-08-10 09:45] VITALS: BP 136/78; PULSE 57; RESP 18; TEMP 36.5
--- NOTE | 2024-08-10 13:54 | PCM.WC.PN ---
History of Present Illness Date of Service: 08/10/24 Chief Complaint: venous ulcers of left lower extremity History of Wound: Mauricio is a 69 yo gentleman who is here today for evaluation of ulcers to to his bilateral lower legs. He has been treated multiple times in the past at the wound healing center for similar ulcers. The left LE ulcer started after he developed increased swelling and blisters of left leg in October and the right leg started sometime at the end of October. He was seen at PCP's office a culture was taken and it was resistant to several antibiotics. He was treated initially with Levaquin but had myalgias and then was treated with doxycycline which he finished 2 days ago. He denies improvement and is having swelling to his left calf and thigh. He has been having swelling to both lower extremities for many years and it has worsened over the last few months. He has not been compliant with compression. He has had increased pain especially in the left leg. He has clear yellow drainage and redness without odor or warmth. He is anti-coagulated on coumadin. He has been washing with Dial soap and witch ifrah. He had been using Collagen at times and using Calcium Alginate and covering with ABD pads during October. He was treated with 3M compression and Aquacel Ag. He was referred to the wound center for ongoing treatment. His ulcers have moderate to heavy drainage. He was recently hospitalized for cellulitis and edema for the last 10 days. He was in the hospital from 11/30/22 until 12/09/22 for treatment of cellulitis and edema. He underwent treatment with Vancomycin and IV lasix and compression. Discharged on 12/09/22. He returned to his assisted living apartment on Tuesday12/21/22. Subjective Subjective Mauricio is a 69-year-old male with longstanding history of chronic venous ulceration to the left lower extremity. Wound culture from 06/15/24 were positive for multiple bacteria and he completed antibiotic treatment. He has had decreased drainage this week. His edema is a little better this week and he has been using ABDs and Aquacel Extra. There has been no worsening in his ulcer overall this week. He is using KATE and size F Tubigrips for compression. 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 He continues to use his lymphedema pumps but continues to have pain with use of these pumps. Objective Data Objective Data Vital Signs: Vital Signs Temp Pulse Resp BP O2 Del Method 97.7 F L 57 L 18 136/78 H Room Air 08/10/24 09:45 08/10/24 09:45 08/10/24 09:45 08/10/24 09:45 08/10/24 09:45 Oxygen Delivery Method Room Air Physical Exam Const alert, oriented x3 and no apparent distress General Appearance: cooperative and comfortable HEENT normocephalic and head/scalp atraumatic Lymph Lymphatic: lymphedema moderate Resp normal respiratory effort Effort and Inspection: able to speak in complete sentences Cardio regular rate and regular rhythm Extremity General Extremity: edema bilateral lower extremity Details: severe Skin Wounds: wounds noted Wound Narrative: as in clinical panel Psych mental status grossly normal, thought process normal, cooperative and affect normal Debridement Note Debridement Note Wound debrided: left medial ulcer Laterality: Left Type of Debridement: Excisional debridement Anesthesia Used: 5% Lidocaine Gel and Cetacaine Depth: Down to and including healthy tissue and in the subcutaneous layer Percentage of wound debrided: 100 Instrument Used: - (misonix ultrasonic debridement) Tissue Removed: Yellow slough, devitalized tissue Severity: Fat Layer Exposed Amount of bleeding with debridement: Mild Bleeding Controlled with: Compression and gauze Patient tolerated procedure: Patient tolerated procedure well Post-Debridement Measurements and Additional Note: Post-Debridement Measurements/Treatment - Nurse 1 - General Ulcer Assessment Start: 08/10/24 09:41 Freq: Status: Active Protocol: [email or web address] Activity Type Activity Date Activity User E-sign Co-sign Detail Recorded Client Recorded Date Recorded By Document 08/10/24 09:45 KW [id number] 08/10/24 09:55 KW 08/10/24 09:45 - Today's Visit Information Type of service Follow-up Visit (Physician/SALES AND RETAIL MANAGEMENT RECRUITER ) Arrival Mode Ambulatory, Walker Patient Identification Verified (Name & Yes ) Vital Signs Temperature (97.8 F-99.1 F) 97.7 F L Temperature Source Temporal Pulse Rate (60-100) 57 L Pulse Location Monitor Respiratory Rate (12-18) 18 Respiratory rate source Observation Oxygen Delivery Method Room Air Blood Pressure (90/60-120/80) 136/78 H Blood Pressure Mean (mm Hg) 97 Source Monitor Position Semi-Fowlers Blood Pressure Location Left Arm History Since Last Visit- (Skip if this is Patient's initial visit) Have you changed medications since your No last visit? Any new allergies or adverse reactions No Had a fall/change in ADL's that may No increase risk of falls Signs or symptoms of abuse and/or No neglect since last visit Have you been in the hospital since your No last visit? Has dressing in place as prescribed Yes Has compression in place as prescribed Yes Has offloadiing in place as prescribed N/A Experienced any changes in pain level or No management Left Footwear Regular Shoe Right Footwear Regular Shoe Pain Scale: 0-10 Numeric Is Patient Pain Free? No LLE -Intensity 7 -Alleviating Factors/Interventions Inactivity/ Resting WC - Nurse 1 - General Ulcer Measurement Start: 08/10/24 09:41 Freq: Status: Active Protocol: Activity Type Activity Date Activity User E-sign Co-sign Detail Recorded Client Recorded Date Recorded By Document 08/10/24 09:45 [id number] 08/10/24 09:55 08/10/24 09:45 Wound Center Nurse 1 #18 Left medial LE cluster -Current Size (cm) - Length 17.5 -Current Size (cm) - Width 8 -Current Size (cm) - Depth 0.1 -Total Square Cm 140.0 -Exudate Amt Small -Exudate Type Serosanguineous -Wound Margin Distinct, Outline Attached -Granulation Amt Large (67-100%) -Granulation Quality [place],Red -Texture (Marie-wound Skin Appearance) Assessed -Moisture (Marie-wound Skin Appearance) Assessed -Color (Marie-wound Skin Appearance) Assessed -Temperature (Marie-wound Skin No Abnormality Appearance) (Pt Warm) -Tenderness on Palpation (Marie-wound No Skin Appearance) -Ulcer Cleansing Soap and Water -Foul Odor after Cleansing No -Anesthetic Used 5% Lidocaine Gel Right Calf (cm) 45.5 Right Ankle (cm) 29.5 Left Calf (cm) 43.2 Left Ankle (cm) 29.3 WC - Nurse 2 - General Ulcer CM Notes Start: 08/10/24 09:41 Freq: Status: Active Protocol: Activity Type Activity Date Activity User E-sign Co-sign Detail Recorded Client Recorded Date Recorded By Document 08/10/24 10:03 [id number] 08/10/24 10:18 08/10/24 10:03 Wound Center Nurse 2 #18 Left medial LE cluster -Time 10:03 -Correct Patient Yes -Correct Side, Site, Position Yes -Correct Procedure Yes -Procedure Performed Yes -Type of Procedure Debridement -Clinical Debridement Subcutaneous -Tissue Removed Subcutaneous -Post Debridement (cm) - Length 9.0 -Post Debridement (cm) - Width 16.1 -Post Debridement (cm) - Depth 0.1 -Total Square (Post) (cm) 144.90 -Area of Debridement (cm) - Length 9.0 -Area of Debridement (cm) - Width 16.0 -Total Square (Area) (cm) 144.00 -Tunneling No -Undermining/Tunneling No -Circular Undermining No -Wound/Ulcer Outcome Not Healed -Ulcer Cleansing Rinsed/ Irrigated with Saline -Foul Odor after Cleansing No -Bioengineered Tissue No -Bleeding Controlled with Pressure -Treatment Response Procedure Tolerated Well -Debridement - Subq, 1st 20sq cm Yes -Debridement, SubQ, ea addt'l 20sq cm 7 or part thereof Pain Scale: 0-10 Numeric Is Patient Pain Free? Yes - Nurse 3 - General Ulcer D/C NN Start: 08/10/24 09:41 Freq: Status: Active Protocol: Activity Type Activity Date Activity User E-sign Co-sign Detail Recorded Client Recorded Date Recorded By Document 08/10/24 10:28 ALEX [id number] 08/10/24 10:28 ALEX 08/10/24 10:28 Wound Care Center Nurse 3 #18 Left medial LE cluster -Primary Dressing Applied Aquacel Extra -Primary Dressing Covered/Secured with Dry Gauze & Roll Gauze, Secured with Tape -Aquacel Extra 2 Right -Tubular Bandage Double Layer -Size of Tubigrip Used Size F -Size F ($) 2 Left -Compression Wrap Kate Wrap Pain Scale: 0-10 Numeric Is Patient Pain Free? Yes Assessment/Plan Assessment/Plan (1) Lymphedema: CODE(S): I89.0 - Lymphedema, not elsewhere classified (2) Hypertension: CODE(S): I10 - Essential (primary) hypertension QUALIFIERS: Hypertension type: primary hypertension Qualified Code(s): I10 - Essential (primary) hypertension (3) Hyperlipidemia: CODE(S): E78.5 - Hyperlipidemia, unspecified QUALIFIERS: Hyperlipidemia type: mixed hyperlipidemia Qualified Code(s): E78.2 - Mixed hyperlipidemia (4) History of DVT (deep vein thrombosis): CODE(S): Z86.718 - Personal history of other venous thrombosis and embolism (5) Venous insufficiency (chronic) (peripheral): CODE(S): I87.2 - Venous insufficiency (chronic) (peripheral) (6) Venous ulcer of left lower extremity with varicose veins: CODE(S): I83.029 - Varicose veins of left lower extremity with ulcer of unspecified site (7) Edema: CODE(S): R60.9 - Edema, unspecified QUALIFIERS: Edema type: unspecified Qualified Code(s): R60.9 - Edema, unspecified PLAN: Plan Evaluation and debridement of left medial LE ulcer performed today in clinic as annotated above. At home wound-care instructions: Will have him continue Aquacel Extra or Fibracol and ABD changed daily. Use superabsorber if drainage is heavy. Continue compression with F tubigrips b/l. Due to the delayed progress in wound healing of his venous ulcers, we discussed applying for advanced wound healing product for healing his ulcer. Due to the size of his ulcer, Theraskin application approval is being requested from his insurance as it is medically necessary for salvaging his limb and healing his ulcer. He underwent 2 applications of Theraskin to this ulcer. Since application of Theraskin he has had much improvement in epithelialization of his ulcer even though the overall size is not significantly changed there is progress. Off-loading: The patient was instructed to avoid pressure and friction on the affected areas. Reposition every 2 hours at minimum. Avoid prolonged standing and/or dangling of legs. When seated, feet should be elevated at chest level. Frequent ambulation is encouraged. Encouraged lymphedema pump use. Diet: Patient encouraged to increase protein intake while taking caution to avoid high carbohydrate and/or sugar intake. Labs/cultures/imaging: Wound culture showed Pseudomonas, Escherichia hermannii, Raoultella planticola, Vancomycin Resist. E. faecalis, Alcaligenes faecalis ssp faeca, Staphylococcus cohnii urealyti and anaerobic bacteria on 06/15/24 and he completed on Levofloxacin and Augmentin. Follow-up: Return in 1 week for wound care follow up and have dressing changed by home health Tuesday and Tuesday. Return sooner or report to the emergency room should symptoms worsen, or new symptoms arise. Note: [employer] speech recognition chopper gun operator software was used to create portions of this document. Sound-alike and misspelled words, as well as other chopper gun operator errors may be contained in the documentation.
[2024-08-16 11:10] LABS: Prealbumin 23 mg/dL (10-36)
[2024-08-17 09:38] VITALS: BP 104/58; PULSE 64; RESP 18; TEMP 36.6
--- NOTE | 2024-08-17 12:55 | PCM.WC.PN ---
History of Present Illness Date of Service: 08/17/24 Chief Complaint: venous ulcers of left lower extremity History of Wound: Mauricio is a 69 yo gentleman who is here today for evaluation of ulcers to to his bilateral lower legs. He has been treated multiple times in the past at the wound healing center for similar ulcers. The left LE ulcer started after he developed increased swelling and blisters of left leg in October and the right leg started sometime at the end of October. He was seen at PCP's office a culture was taken and it was resistant to several antibiotics. He was treated initially with Levaquin but had myalgias and then was treated with doxycycline which he finished 2 days ago. He denies improvement and is having swelling to his left calf and thigh. He has been having swelling to both lower extremities for many years and it has worsened over the last few months. He has not been compliant with compression. He has had increased pain especially in the left leg. He has clear yellow drainage and redness without odor or warmth. He is anti-coagulated on coumadin. He has been washing with Dial soap and witch ifrah. He had been using Collagen at times and using Calcium Alginate and covering with ABD pads during October. He was treated with 3M compression and Aquacel Ag. He was referred to the wound center for ongoing treatment. His ulcers have moderate to heavy drainage. He was recently hospitalized for cellulitis and edema for the last 10 days. He was in the hospital from 11/30/22 until 12/09/22 for treatment of cellulitis and edema. He underwent treatment with Vancomycin and IV lasix and compression. Discharged on 12/09/22. He returned to his assisted living apartment on Tuesday12/21/22. Subjective Subjective Mauricio is a 69-year-old male with longstanding history of chronic venous ulceration to the left lower extremity. Wound culture from 06/15/24 were positive for multiple bacteria and he completed antibiotic treatment. He has had decreased drainage this week. His edema is a little better this week and he has been using ABDs and Aquacel Extra. There has been no worsening in his ulcer overall this week. He is using KATE and size F Tubigrips for compression. 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 He continues to use his lymphedema pumps but continues to have pain with use of these pumps. Objective Data Objective Data Vital Signs: Vital Signs Temp Pulse Resp BP O2 Del Method 97.8 F 64 18 104/58 L Room Air 08/17/24 09:38 08/17/24 09:38 08/17/24 09:38 08/17/24 09:38 08/10/24 09:45 Oxygen Delivery Method Room Air Physical Exam Const alert, oriented x3 and no apparent distress General Appearance: cooperative and comfortable HEENT normocephalic and head/scalp atraumatic Lymph Lymphatic: lymphedema moderate Resp normal respiratory effort Effort and Inspection: able to speak in complete sentences Cardio regular rate and regular rhythm Extremity General Extremity: edema bilateral lower extremity Details: severe Skin Wounds: wounds noted Wound Narrative: as in clinical panel Psych mental status grossly normal, thought process normal, cooperative and affect normal Debridement Note Debridement Note Wound debrided: left medial LE Laterality: Left Type of Debridement: Excisional debridement Anesthesia Used: 5% Lidocaine Gel and Cetacaine Depth: Down to and including healthy tissue and in the subcutaneous layer Percentage of wound debrided: 100 Instrument Used: - (Misonix ultrasonic debridement) Tissue Removed: Yellow slough, devitalized tissue Severity: Fat Layer Exposed Amount of bleeding with debridement: Mild Bleeding Controlled with: Compression and gauze Patient tolerated procedure: Patient tolerated procedure well Post-Debridement Measurements and Additional Note: Post-Debridement Measurements/Treatment - Nurse 1 - General Ulcer Assessment Start: 08/10/24 09:41 Freq: Status: Active Protocol: [email or web address] Activity Type Activity Date Activity User E-sign Co-sign Detail Recorded Client Recorded Date Recorded By Document 08/10/24 09:45 KW [id number] 08/10/24 09:55 KW Document 08/17/24 09:38 RB [id number] 08/17/24 09:49 RB 08/10/24 08/17/24 09:45 09:38 - Today's Visit Information Type of service Follow-up Visit Follow-up Visit (Physician/BATTERY ASSEMBLER DRY CELL (Physician/BATTERY ASSEMBLER DRY CELL ) ) Arrival Mode Ambulatory, Ambulatory, Walker Walker Transfer Assistance None Patient Identification Verified (Name & Yes Yes ) Patient Requires Transmission-Based No Precautions Vital Signs Temperature (97.8 F-99.1 F) 97.7 F L 97.8 F Temperature Source Temporal Temporal Pulse Rate (60-100) 57 L 64 Pulse Location Monitor Monitor Respiratory Rate (12-18) 18 18 Respiratory rate source Observation Observation Oxygen Delivery Method Room Air Blood Pressure (90/60-120/80) 136/78 H 104/58 L Blood Pressure Mean (mm Hg) 97 73 Source Monitor Monitor Position Semi-Fowlers Semi-Fowlers Blood Pressure Location Left Arm Left Arm History Since Last Visit- (Skip if this is Patient's initial visit) Have you changed medications since your No No last visit? Any new allergies or adverse reactions No No Had a fall/change in ADL's that may No No increase risk of falls Signs or symptoms of abuse and/or No No neglect since last visit Have you been in the hospital since your No No last visit? Has dressing in place as prescribed Yes Yes Has compression in place as prescribed Yes Yes Has offloadiing in place as prescribed N/A No Experienced any changes in pain level or No No management Left Footwear Regular Shoe Right Footwear Regular Shoe Pain Scale: 0-10 Numeric Is Patient Pain Free? No Yes LLE -Intensity 7 -Alleviating Factors/Interventions Inactivity/ Resting WC - Nurse 1 - General Ulcer Measurement Start: 08/10/24 09:41 Freq: Status: Active Protocol: Activity Type Activity Date Activity User E-sign Co-sign Detail Recorded Client Recorded Date Recorded By Document 08/10/24 09:45 KW [id number] 08/10/24 09:55 KW Document 08/17/24 09:38 RB [id number] 08/17/24 09:49 RB 08/10/24 08/17/24 09:45 09:38 Wound Center Nurse 1 #18 Left medial LE cluster -Combined with other wound No -Current Size (cm) - Length 17.5 16 -Current Size (cm) - Width 8 8 -Current Size (cm) - Depth 0.1 0.1 -Total Square Cm 140.0 128 -Tunneling No -Undermining/Tunneling No -Circular Undermining No -Exudate Amt Small Large -Exudate Type Serosanguineous Serosanguineous -Wound Margin Distinct, Distinct, Outline Outline Attached Attached -Granulation Amt Large (67-100%) Medium (34-66%) -Granulation Quality [place] -Slough/Fibrin Yes -Necrosis Amt Small (1-33%) -Necrotic Tissue Type Adherent Slough -Structure Exposed N/A -Texture (Marie-wound Skin Appearance) Assessed Assessed, Scarring -Moisture (Marie-wound Skin Appearance) Assessed Assessed -Color (Marie-wound Skin Appearance) Assessed Assessed -Temperature (Marie-wound Skin No Abnormality No Abnormality Appearance) (Pt Warm) (Pt Warm) -Tenderness on Palpation (Marie-wound No No Skin Appearance) -Ulcer Cleansing Soap and Water Wound Cleanser -Foul Odor after Cleansing No No -Anesthetic Used 5% Lidocaine 5% Lidocaine Gel Gel Lower Limb Edema Present Yes Right Calf (cm) 45.5 Right Ankle (cm) 29.5 Left Calf (cm) 43.2 41.2 Left Ankle (cm) 29.3 28 WC - Nurse 2 - General Ulcer CM Notes Start: 08/10/24 09:41 Freq: Status: Active Protocol: Activity Type Activity Date Activity User E-sign Co-sign Detail Recorded Client Recorded Date Recorded By Document 08/10/24 10:03 [id number] 08/10/24 10:18 Document 08/17/24 11:07 [id number] 08/17/24 11:17 08/10/24 08/17/24 10:03 11:07 Wound Center Nurse 2 #18 Left medial LE cluster -Time 10:03 11:07 -Correct Patient Yes Yes -Correct Side, Site, Position Yes Yes -Correct Procedure Yes Yes -Procedure Performed Yes Yes -Type of Procedure Debridement Debridement -Clinical Debridement Subcutaneous Subcutaneous -Tissue Removed Subcutaneous Subcutaneous -Post Debridement (cm) - Length 9.0 8.5 -Post Debridement (cm) - Width 16.1 14.5 -Post Debridement (cm) - Depth 0.1 0.1 -Total Square (Post) (cm) 144.90 123.25 -Area of Debridement (cm) - Length 9.0 8.5 -Area of Debridement (cm) - Width 16.0 14.5 -Total Square (Area) (cm) 144.00 123.25 -Tunneling No No -Undermining/Tunneling No No -Circular Undermining No No -Wound/Ulcer Outcome Not Healed Not Healed -Ulcer Cleansing Rinsed/ Rinsed/ Irrigated with Irrigated with Saline Saline -Foul Odor after Cleansing No No -Bioengineered Tissue No No -Bleeding Controlled with Pressure Pressure -Treatment Response Procedure Procedure Tolerated Well Tolerated Well -Debridement - Subq, 1st 20sq cm Yes Yes -Debridement, SubQ, ea addt'l 20sq cm 7 6 or part thereof Pain Scale: 0-10 Numeric Is Patient Pain Free? Yes Yes WC - Nurse 3 - General Ulcer D/C NN Start: 08/10/24 09:41 Freq: Status: Active Protocol: Activity Type Activity Date Activity User E-sign Co-sign Detail Recorded Client Recorded Date Recorded By Document 08/10/24 10:28 ALEX [id number] 08/10/24 10:28 ALEX 08/10/24 10:28 Wound Care Center Nurse 3 #18 Left medial LE cluster -Primary Dressing Applied Aquacel Extra -Primary Dressing Covered/Secured with Dry Gauze & Roll Gauze, Secured with Tape -Aquacel Extra 2 Right -Tubular Bandage Double Layer -Size of Tubigrip Used Size F -Size F ($) 2 Left -Compression Wrap Kate Wrap Pain Scale: 0-10 Numeric Is Patient Pain Free? Yes Assessment/Plan Assessment/Plan (1) Lymphedema: CODE(S): I89.0 - Lymphedema, not elsewhere classified (2) Hypertension: CODE(S): I10 - Essential (primary) hypertension QUALIFIERS: Hypertension type: primary hypertension Qualified Code(s): I10 - Essential (primary) hypertension (3) Hyperlipidemia: CODE(S): E78.5 - Hyperlipidemia, unspecified QUALIFIERS: Hyperlipidemia type: mixed hyperlipidemia Qualified Code(s): E78.2 - Mixed hyperlipidemia (4) History of DVT (deep vein thrombosis): CODE(S): Z86.718 - Personal history of other venous thrombosis and embolism (5) Venous insufficiency (chronic) (peripheral): CODE(S): I87.2 - Venous insufficiency (chronic) (peripheral) (6) Venous ulcer of left lower extremity with varicose veins: CODE(S): I83.029 - Varicose veins of left lower extremity with ulcer of unspecified site (7) Edema: CODE(S): R60.9 - Edema, unspecified QUALIFIERS: Edema type: unspecified Qualified Code(s): R60.9 - Edema, unspecified PLAN: Plan Evaluation and debridement of left medial LE ulcer performed today in clinic as annotated above. At home wound-care instructions: Will have him continue Aquacel Extra or Fibracol and ABD changed daily. Use superabsorber if drainage is heavy. Continue compression with F tubigrips b/l. Due to the delayed progress in wound healing of his venous ulcers, we discussed applying for advanced wound healing product for healing his ulcer. Due to the size of his ulcer, Theraskin application approval is being requested from his insurance as it is medically necessary for salvaging his limb and healing his ulcer. He underwent 2 applications of Theraskin to this ulcer. Since application of Theraskin he has had much improvement in epithelialization of his ulcer even though the overall size is not significantly changed there is progress. Off-loading: The patient was instructed to avoid pressure and friction on the affected areas. Reposition every 2 hours at minimum. Avoid prolonged standing and/or dangling of legs. When seated, feet should be elevated at chest level. Frequent ambulation is encouraged. Encouraged lymphedema pump use. Diet: Patient encouraged to increase protein intake while taking caution to avoid high carbohydrate and/or sugar intake. Labs/cultures/imaging: Wound culture showed Pseudomonas, Escherichia hermannii, Raoultella planticola, Vancomycin Resist. E. faecalis, Alcaligenes faecalis ssp faeca, Staphylococcus cohnii urealyti and anaerobic bacteria on 06/15/24 and he completed on Levofloxacin and Augmentin. Follow-up: Return in 1 week for wound care follow up and have dressing changed by home health Tuesday and Tuesday. Return sooner or report to the emergency room should symptoms worsen, or new symptoms arise. Note: [employer] speech recognition embedded firmware engineer software was used to create portions of this document. Sound-alike and misspelled words, as well as other embedded firmware engineer errors may be contained in the documentation.
[2024-08-24 09:33] VITALS: BP 100/63; PULSE 66; RESP 17; TEMP 37
--- NOTE | 2024-08-24 13:36 | PN.PCM_ITS ---
History of Present Illness Date of Service: 08/24/24 Chief Complaint: venous ulcers of left lower extremity History of Wound: Mauricio is a 69 yo gentleman who is here today for evaluation of ulcers to to his bilateral lower legs. He has been treated multiple times in the past at the wound healing center for similar ulcers. The left LE ulcer started after he developed increased swelling and blisters of left leg in October and the right leg started sometime at the end of October. He was seen at PCP's office a culture was taken and it was resistant to several antibiotics. He was treated initially with Levaquin but had myalgias and then was treated with doxycycline which he finished 2 days ago. He denies improvement and is having swelling to his left calf and thigh. He has been having swelling to both lower extremities for many years and it has worsened over the last few months. He has not been compliant with compression. He has had increased pain especially in the left leg. He has clear yellow drainage and redness without odor or warmth. He is anti- coagulated on coumadin. He has been washing with Dial soap and witch ifrah. He had been using Collagen at times and using Calcium Alginate and covering with ABD pads during October. He was treated with 3M compression and Aquacel Ag. He was referred to the wound center for ongoing treatment. His ulcers have moderate to heavy drainage. He was recently hospitalized for cellulitis and edema for the last 10 days. He was in the hospital from 11/30/22 until 12/09/22 for treatment of cellulitis and edema. He underwent treatment with Vancomycin and IV lasix and compression. Discharged on 12/09/22. He returned to his assisted living apartment on Tuesday12/21/22. Subjective Subjective Mauricio is a 69-year-old male with longstanding history of chronic venous ulceration to the left lower extremity. Wound culture from 06/15/24 were positive for multiple bacteria and he completed antibiotic treatment. He has had decreased drainage this week. His edema is a little better this week and he has been using ABDs and Aquacel Extra. There has been improvement in his ulcer overall this week. He is using MARCIO and size F Tubigrips for compression. 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 He continues to use his lymphedema pumps but continues to have pain with use of these pumps. Objective Data Objective Data Vital Signs: Vital Signs Temp Pulse Resp BP O2 Del Method 98.6 F 66 17 100/63 Room Air 08/24/24 09:33 08/24/24 09:33 08/24/24 09:33 08/24/24 09:33 08/10/24 09:45 Oxygen Delivery Method Room Air Physical Exam Const alert, oriented x3 and no apparent distress General Appearance: cooperative and comfortable HEENT normocephalic and head/scalp atraumatic Lymph Lymphatic: lymphedema moderate Resp normal respiratory effort Effort and Inspection: able to speak in complete sentences Cardio regular rate and regular rhythm Extremity General Extremity: edema bilateral lower extremity Details: severe Skin Wounds: wounds noted Wound Narrative: as in clinical panel Psych mental status grossly normal, thought process normal, cooperative and affect normal Debridement Note Debridement Note Wound debrided: left medial LE Laterality: Left Type of Debridement: Excisional debridement Anesthesia Used: 5% Lidocaine Gel and Cetacaine Depth: Down to and including healthy tissue and in the subcutaneous layer Percentage of wound debrided: 100 Instrument Used: - (Misonix ultrasonic debridement) Tissue Removed: Yellow slough, devitalized tissue Severity: Fat Layer Exposed Amount of bleeding with debridement: Mild Bleeding Controlled with: Compression and gauze Patient tolerated procedure: Patient tolerated procedure well Post-Debridement Measurements and Additional Note: Post-Debridement Measurements/Treatment - Nurse 1 - General Ulcer Assessment Start: 08/10/24 09:41 Freq: Status: Active Protocol: ONDINA Activity Type Activity Date Activity User E-sign Co-sign Detail Recorded Client Recorded Date Recorded By Document 08/10/24 09:45 KW [id number] 08/10/24 09:55 KW Document 08/17/24 09:38 RB [id number] 08/17/24 09:49 RB Document 08/24/24 09:33 ML [id number] 08/24/24 09:45 ML 08/10/24 08/17/24 08/24/24 09:45 09:38 09:33 - Today's Visit Information Type of service Follow-up Visit Follow-up Visit Follow-up Visit (Physician/PRESSURE VESSEL INSPECTOR (Physician/PRESSURE VESSEL INSPECTOR (Physician/PRESSURE VESSEL INSPECTOR ) ) ) Arrival Mode Ambulatory, Ambulatory, Ambulatory Walker Walker Transfer Assistance None None Patient Identification Verified (Name & Yes Yes Yes ) Patient Requires Transmission-Based No No Precautions Vital Signs Temperature (97.8 F-99.1 F) 97.7 F L 97.8 F 98.6 F Temperature Source Temporal Temporal Temporal Pulse Rate (60-100) 57 L 64 66 Pulse Location Monitor Monitor Monitor Respiratory Rate (12-18) 18 18 17 Respiratory rate source Observation Observation Observation Oxygen Delivery Method Room Air Blood Pressure (90/60-120/80) 136/78 H 104/58 L 100/63 Blood Pressure Mean (mm Hg) 97 73 75 Source Monitor Monitor Monitor Position Semi-Fowlers Semi-Fowlers Sitting Blood Pressure Location Left Arm Left Arm Right Arm History Since Last Visit- (Skip if this is Patient's initial visit) Have you changed medications since your No No No last visit? Any new allergies or adverse reactions No No No Had a fall/change in ADL's that may No No No increase risk of falls Signs or symptoms of abuse and/or No No No neglect since last visit Have you been in the hospital since your No No No last visit? Has dressing in place as prescribed Yes Yes Yes Has compression in place as prescribed Yes Yes N/A Has offloadiing in place as prescribed N/A No N/A Experienced any changes in pain level or No No No management Left Footwear Regular Shoe Regular Shoe Right Footwear Regular Shoe Regular Shoe Pain Scale: 0-10 Numeric Is Patient Pain Free? No Yes Yes LLE -Intensity 7 -Alleviating Factors/Interventions Inactivity/ Resting WC - Nurse 1 - General Ulcer Measurement Start: 08/10/24 09:41 Freq: Status: Active Protocol: Activity Type Activity Date Activity User E-sign Co-sign Detail Recorded Client Recorded Date Recorded By Document 08/10/24 09:45 KW [id number] 08/10/24 09:55 KW Document 08/17/24 09:38 RB [id number] 08/17/24 09:49 RB Document 08/24/24 09:33 ML [id number] 08/24/24 09:45 ML 08/10/24 08/17/24 08/24/24 09:45 09:38 09:33 Wound Center Nurse 1 #18 Left medial LE cluster -Combined with other wound No -Current Size (cm) - Length 17.5 16 9.5 -Current Size (cm) - Width 8 8 17 -Current Size (cm) - Depth 0.1 0.1 0.1 -Total Square Cm 140.0 128 161.5 -Tunneling No -Undermining/Tunneling No -Circular Undermining No -Exudate Amt Small Large Medium -Exudate Type Serosanguineous Serosanguineous Serosanguineous -Wound Margin Distinct, Distinct, Distinct, Outline Outline Outline Attached Attached Attached -Granulation Amt Large (67-100%) Medium (34-66%) Medium (34-66%) -Granulation Quality [place],Red [place] -Slough/Fibrin Yes Yes -Necrosis Amt Small (1-33%) Medium (34-66%) -Necrotic Tissue Type Adherent Slough Adherent Slough -Structure Exposed N/A -Texture (Marie-wound Skin Appearance) Assessed Assessed, Assessed Scarring -Moisture (Marie-wound Skin Appearance) Assessed Assessed Assessed -Color (Marie-wound Skin Appearance) Assessed Assessed Assessed -Temperature (Marie-wound Skin No Abnormality No Abnormality No Abnormality Appearance) (Pt Warm) (Pt Warm) (Pt Warm) -Tenderness on Palpation (Marie-wound No No No Skin Appearance) -Ulcer Cleansing Soap and Water Wound Cleanser Soap and Water -Foul Odor after Cleansing No No No -Anesthetic Used 5% Lidocaine 5% Lidocaine 5% Lidocaine Gel Gel Gel Lower Limb Edema Present Yes Right Calf (cm) 45.5 Right Ankle (cm) 29.5 Left Calf (cm) 43.2 41.2 41 Left Ankle (cm) 29.3 28 27.5 WC - Nurse 2 - General Ulcer CM Notes Start: 08/10/24 09:41 Freq: Status: Active Protocol: Activity Type Activity Date Activity User E-sign Co-sign Detail Recorded Client Recorded Date Recorded By Document 08/10/24 10:03 [id number] 08/10/24 10:18 Document 08/17/24 11:07 [id number] 08/17/24 11:17 Document 08/24/24 09:56 [id number] 08/24/24 10:07 08/10/24 08/17/24 08/24/24 10:03 11:07 09:56 Wound Center Nurse 2 #18 Left medial LE cluster -Time 10:03 11:07 09:57 -Correct Patient Yes Yes Yes -Correct Side, Site, Position Yes Yes Yes -Correct Procedure Yes Yes Yes -Procedure Performed Yes Yes Yes -Type of Procedure Debridement Debridement Debridement -Clinical Debridement Subcutaneous Subcutaneous Subcutaneous -Tissue Removed Subcutaneous Subcutaneous Subcutaneous -Post Debridement (cm) - Length 9.0 8.5 8.5 -Post Debridement (cm) - Width 16.1 14.5 14.8 -Post Debridement (cm) - Depth 0.1 0.1 0.1 -Total Square (Post) (cm) 144.90 123.25 125.80 -Area of Debridement (cm) - Length 9.0 8.5 8.5 -Area of Debridement (cm) - Width 16.0 14.5 14.8 -Total Square (Area) (cm) 144.00 123.25 125.80 -Tunneling No No No -Undermining/Tunneling No No No -Circular Undermining No No No -Wound/Ulcer Outcome Not Healed Not Healed Not Healed -Ulcer Cleansing Rinsed/ Rinsed/ Rinsed/ Irrigated with Irrigated with Irrigated with Saline Saline Saline -Foul Odor after Cleansing No No No -Bioengineered Tissue No No No -Bleeding Controlled with Pressure Pressure Pressure -Treatment Response Procedure Procedure Procedure Tolerated Well Tolerated Well Tolerated Well -Debridement - Subq, 1st 20sq cm Yes Yes Yes -Debridement, SubQ, ea addt'l 20sq cm 7 6 6 or part thereof Pain Scale: 0-10 Numeric Is Patient Pain Free? Yes Yes Yes - Nurse 3 - General Ulcer D/C NN Start: 08/10/24 09:41 Freq: Status: Active Protocol: Activity Type Activity Date Activity User E-sign Co-sign Detail Recorded Client Recorded Date Recorded By Document 08/10/24 10:28 ALEX [id number] 08/10/24 10:28 Document 08/24/24 10:13 [id number] 08/24/24 10:32 KW 08/10/24 08/24/24 10:28 10:13 Wound Care Center Nurse 3 #18 Left medial LE cluster -Primary Dressing Applied Aquacel Extra Aquacel Extra -Primary Dressing Covered/Secured with Dry Gauze & Dry Gauze & Roll Gauze, Roll Gauze, Secured with Secured with Tape Tape -Aquacel Extra 2 1 Right -Compression Wrap Marcio Wrap -Tubular Bandage Double Layer Single Layer -Size of Tubigrip Used Size F Size F -Size F ($) 2 1 Left -Compression Wrap Marcio Wrap Marcio Wrap -Tubular Bandage Single Layer -Size of Tubigrip Used Size F -Size F ($) 1 Pain Scale: 0-10 Numeric Is Patient Pain Free? Yes Yes Assessment/Plan Assessment/Plan (1) Lymphedema: CODE(S): I89.0 - Lymphedema, not elsewhere classified (2) Hypertension: CODE(S): I10 - Essential (primary) hypertension QUALIFIERS: Hypertension type: primary hypertension Qualified Code(s): I10 - Essential (primary) hypertension (3) Hyperlipidemia: CODE(S): E78.5 - Hyperlipidemia, unspecified QUALIFIERS: Hyperlipidemia type: mixed hyperlipidemia Qualified Code(s): E78.2 - Mixed hyperlipidemia (4) History of DVT (deep vein thrombosis): CODE(S): Z86.718 - Personal history of other venous thrombosis and embolism (5) Venous insufficiency (chronic) (peripheral): CODE(S): I87.2 - Venous insufficiency (chronic) (peripheral) (6) Venous ulcer of left lower extremity with varicose veins: CODE(S): I83.029 - Varicose veins of left lower extremity with ulcer of unspecified site (7) Edema: CODE(S): R60.9 - Edema, unspecified QUALIFIERS: Edema type: unspecified Qualified Code(s): R60.9 - Edema, unspecified PLAN: Plan Evaluation and debridement of left medial LE ulcer performed today in clinic as annotated above. At home wound-care instructions: Will have him continue Aquacel Extra or Fibracol and ABD changed daily. Use superabsorber if drainage is heavy. Continue compression with F tubigrips b/l. Due to the delayed progress in wound healing of his venous ulcers, we discussed applying for advanced wound healing product for healing his ulcer. Due to the size of his ulcer, Therask[employer] application approval is being requested from his insurance as it is medically necessary for salvaging his limb and healing his ulcer. He underwent 2 applications of Theraskin to this ulcer. Since application of Theraskin he has had much improvement in epithelialization of his ulcer even though the overall size is not significantly changed there is progress. Off-loading: The patient was instructed to avoid pressure and friction on the affected areas. Reposition every 2 hours at minimum. Avoid prolonged standing and/or dangling of legs. When seated, feet should be elevated at chest level. Frequent ambulation is encouraged. Encouraged lymphedema pump use. Diet: Patient encouraged to increase protein intake while taking caution to avoid high carbohydrate and/or sugar intake. Labs/cultures/imaging: Wound culture showed Pseudomonas, Escherichia hermannii, Raoultella planticola, Vancomycin Resist. E. faecalis, Alcaligenes faecalis ssp faeca, Staphylococcus cohnii urealyti and anaerobic bacteria on 06/15/24 and he completed on Levofloxacin and Augmentin. Follow-up: Return in 1 week for wound care follow up and have dressing changed by home health Tuesday and Tuesday. Return sooner or report to the emergency room should symptoms worsen, or new symptoms arise. Note: [employer] speech recognition binder coverstitch software was used to create portions of this document. Sound-alike and misspelled words, as well as other binder coverstitch errors may be contained in the documentation.
[2024-08-31 09:57] VITALS: BP 129/82; PULSE 58; RESP 18; TEMP 35.9
--- NOTE | 2024-08-31 13:03 | PN.PCM_ITS ---
History of Present Illness Date of Service: 08/31/24 Chief Complaint: venous ulcers of left lower extremity History of Wound: Mauricio is a 69 yo gentleman who is here today for evaluation of ulcers to to his bilateral lower legs. He has been treated multiple times in the past at the wound healing center for similar ulcers. The left LE ulcer started after he developed increased swelling and blisters of left leg in October and the right leg started sometime at the end of October. He was seen at PCP's office a culture was taken and it was resistant to several antibiotics. He was treated initially with Levaquin but had myalgias and then was treated with doxycycline which he finished 2 days ago. He denies improvement and is having swelling to his left calf and thigh. He has been having swelling to both lower extremities for many years and it has worsened over the last few months. He has not been compliant with compression. He has had increased pain especially in the left leg. He has clear yellow drainage and redness without odor or warmth. He is anti- coagulated on coumadin. He has been washing with Dial soap and witch ifrah. He had been using Collagen at times and using Calcium Alginate and covering with ABD pads during October. He was treated with 3M compression and Aquacel Ag. He was referred to the wound center for ongoing treatment. His ulcers have moderate to heavy drainage. He was recently hospitalized for cellulitis and edema for the last 10 days. He was in the hospital from 11/30/22 until 12/09/22 for treatment of cellulitis and edema. He underwent treatment with Vancomycin and IV lasix and compression. Discharged on 12/09/22. He returned to his assisted living apartment on Tuesday12/21/22. Subjective Subjective Mauricio is a 69-year-old male with longstanding history of chronic venous ulceration to the left lower extremity. Wound culture from 06/15/24 were positive for multiple bacteria and he completed antibiotic treatment. He has had decreased drainage this week. His edema is remains better this week and he has been using ABDs and Aquacel Extra. There has been improvement in his ulcer overall this week. He is using MARCIO and size F Tubigrips for compression. 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 He continues to use his lymphedema pumps but continues to have pain with use of these pumps. Objective Data Objective Data Vital Signs: Vital Signs Temp Pulse Resp BP O2 Del Method 96.7 F L 58 L 18 129/82 H Room Air 08/31/24 09:57 08/31/24 09:57 08/31/24 09:57 08/31/24 09:57 08/10/24 09:45 Oxygen Delivery Method Room Air Physical Exam Const alert, oriented x3 and no apparent distress General Appearance: cooperative and comfortable HEENT normocephalic and head/scalp atraumatic Lymph Lymphatic: lymphedema moderate Resp normal respiratory effort Effort and Inspection: able to speak in complete sentences Cardio regular rate and regular rhythm Extremity General Extremity: edema bilateral lower extremity Details: severe Skin Wounds: wounds noted Wound Narrative: as in clinical panel Psych mental status grossly normal, thought process normal, cooperative and affect normal Debridement Note Debridement Note Wound debrided: left medial LE Laterality: Left Type of Debridement: Excisional debridement Anesthesia Used: 5% Lidocaine Gel and Cetacaine Depth: Down to and including healthy tissue and in the subcutaneous layer Percentage of wound debrided: 100 Instrument Used: - (Misonix ultrasonic debridement) Tissue Removed: Yellow slough, devitalized tissue Severity: Fat Layer Exposed Amount of bleeding with debridement: Mild Bleeding Controlled with: Compression and gauze Patient tolerated procedure: Patient tolerated procedure well Post-Debridement Measurements and Additional Note: Post-Debridement Measurements/Treatment - Nurse 1 - General Ulcer Assessment Start: 08/10/24 09:41 Freq: Status: Active Protocol: ONDINA Activity Type Activity Date Activity User E-sign Co-sign Detail Recorded Client Recorded Date Recorded By Document 08/10/24 09:45 KW [id number] 08/10/24 09:55 KW Document 08/17/24 09:38 RB [id number] 08/17/24 09:49 RB Document 08/24/24 09:33 ML [id number] 08/24/24 09:45 ML Document 08/31/24 09:57 RB [id number] 08/31/24 10:02 RB 08/10/24 08/17/24 08/24/24 09:45 09:38 09:33 - Today's Visit Information Type of service Follow-up Visit Follow-up Visit Follow-up Visit (Physician/BOAT TENDER (Physician/BOAT TENDER (Physician/BOAT TENDER ) ) ) Arrival Mode Ambulatory, Ambulatory, Ambulatory Walker Walker Transfer Assistance None None Patient Identification Verified (Name & Yes Yes Yes ) Patient Requires Transmission-Based No No Precautions Vital Signs Temperature (97.8 F-99.1 F) 97.7 F L 97.8 F 98.6 F Temperature Source Temporal Temporal Temporal Pulse Rate (60-100) 57 L 64 66 Pulse Location Monitor Monitor Monitor Respiratory Rate (12-18) 18 18 17 Respiratory rate source Observation Observation Observation Oxygen Delivery Method Room Air Blood Pressure (90/60-120/80) 136/78 H 104/58 L 100/63 Blood Pressure Mean (mm Hg) 97 73 75 Source Monitor Monitor Monitor Position Semi-Fowlers Semi-Fowlers Sitting Blood Pressure Location Left Arm Left Arm Right Arm History Since Last Visit- (Skip if this is Patient's initial visit) Have you changed medications since your No No No last visit? Any new allergies or adverse reactions No No No Had a fall/change in ADL's that may No No No increase risk of falls Signs or symptoms of abuse and/or No No No neglect since last visit Have you been in the hospital since your No No No last visit? Has dressing in place as prescribed Yes Yes Yes Has compression in place as prescribed Yes Yes N/A Has offloadiing in place as prescribed N/A No N/A Experienced any changes in pain level or No No No management Left Footwear Regular Shoe Regular Shoe Right Footwear Regular Shoe Regular Shoe Pain Scale: 0-10 Numeric Is Patient Pain Free? No Yes Yes LLE -Intensity 7 -Alleviating Factors/Interventions Inactivity/ Resting 08/31/24 09:57 WC - Today's Visit Information Type of service Follow-up Visit (Physician/BOAT TENDER ) Arrival Mode Ambulatory Transfer Assistance None Patient Identification Verified (Name & Yes ) Patient Requires Transmission-Based No Precautions Vital Signs Temperature (97.8 F-99.1 F) 96.7 F L Temperature Source Temporal Pulse Rate (60-100) 58 L Pulse Location Monitor Respiratory Rate (12-18) 18 Respiratory rate source Observation Oxygen Delivery Method Blood Pressure (90/60-120/80) 129/82 H Blood Pressure Mean (mm Hg) 97 Source Monitor Position Semi-Fowlers Blood Pressure Location Left Arm History Since Last Visit- (Skip if this is Patient's initial visit) Have you changed medications since your No last visit? Any new allergies or adverse reactions No Had a fall/change in ADL's that may No increase risk of falls Signs or symptoms of abuse and/or No neglect since last visit Have you been in the hospital since your No last visit? Has dressing in place as prescribed Yes Has compression in place as prescribed Yes Has offloadiing in place as prescribed No Experienced any changes in pain level or No management Left Footwear Right Footwear Pain Scale: 0-10 Numeric Is Patient Pain Free? Yes LLE -Intensity -Alleviating Factors/Interventions WC - Nurse 1 - General Ulcer Measurement Start: 08/10/24 09:41 Freq: Status: Active Protocol: Activity Type Activity Date Activity User E-sign Co-sign Detail Recorded Client Recorded Date Recorded By Document 08/10/24 09:45 KW [id number] 08/10/24 09:55 KW Document 08/17/24 09:38 RB [id number] 08/17/24 09:49 RB Document 08/24/24 09:33 ML [id number] 08/24/24 09:45 ML Document 08/31/24 09:57 RB [id number] 08/31/24 10:02 RB 08/10/24 08/17/24 08/24/24 09:45 09:38 09:33 Wound Center Nurse 1 #18 Left medial LE cluster -Combined with other wound No -Current Size (cm) - Length 17.5 16 9.5 -Current Size (cm) - Width 8 8 17 -Current Size (cm) - Depth 0.1 0.1 0.1 -Total Square Cm 140.0 128 161.5 -Photo Taken -Tunneling No -Undermining/Tunneling No -Circular Undermining No -Exudate Amt Small Large Medium -Exudate Type Serosanguineous Serosanguineous Serosanguineous -Wound Margin Distinct, Distinct, Distinct, Outline Outline Outline Attached Attached Attached -Granulation Amt Large (67-100%) Medium (34-66%) Medium (34-66%) -Granulation Quality [place],Red [place] -Slough/Fibrin Yes Yes -Necrosis Amt Small (1-33%) Medium (34-66%) -Necrotic Tissue Type Adherent Slough Adherent Slough -Structure Exposed N/A -Texture (Marie-wound Skin Appearance) Assessed Assessed, Assessed Scarring -Moisture (Marie-wound Skin Appearance) Assessed Assessed Assessed -Color (Marie-wound Skin Appearance) Assessed Assessed Assessed -Temperature (Marie-wound Skin No Abnormality No Abnormality No Abnormality Appearance) (Pt Warm) (Pt Warm) (Pt Warm) -Tenderness on Palpation (Marie-wound No No No Skin Appearance) -Ulcer Cleansing Soap and Water Wound Cleanser Soap and Water -Foul Odor after Cleansing No No No -Anesthetic Used 5% Lidocaine 5% Lidocaine 5% Lidocaine Gel Gel Gel Lower Limb Edema Present Yes Right Calf (cm) 45.5 Right Ankle (cm) 29.5 Left Calf (cm) 43.2 41.2 41 Left Ankle (cm) 29.3 28 27.5 08/31/24 09:57 Wound Center Nurse 1 #18 Left medial LE cluster -Combined with other wound No -Current Size (cm) - Length 8.2 -Current Size (cm) - Width 16 -Current Size (cm) - Depth 0.1 -Total Square Cm 131.2 -Photo Taken No -Tunneling No -Undermining/Tunneling No -Circular Undermining No -Exudate Amt Medium -Exudate Type Serosanguineous -Wound Margin Distinct, Outline Attached -Granulation Amt Medium (34-66%) -Granulation Quality [place] -Slough/Fibrin Yes -Necrosis Amt Small (1-33%) -Necrotic Tissue Type Adherent Slough -Structure Exposed N/A -Texture (Marie-wound Skin Appearance) Assessed, Scarring -Moisture (Marie-wound Skin Appearance) Assessed -Color (Marie-wound Skin Appearance) Assessed, Hemosiderin Staining -Temperature (Marie-wound Skin No Abnormality Appearance) (Pt Warm) -Tenderness on Palpation (Marie-wound No Skin Appearance) -Ulcer Cleansing Wound Cleanser -Foul Odor after Cleansing No -Anesthetic Used 5% Lidocaine Gel Lower Limb Edema Present Yes Right Calf (cm) 47 Right Ankle (cm) 28.5 Left Calf (cm) 42 Left Ankle (cm) 27.7 WC - Nurse 2 - General Ulcer CM Notes Start: 08/10/24 09:41 Freq: Status: Active Protocol: Activity Type Activity Date Activity User E-sign Co-sign Detail Recorded Client Recorded Date Recorded By Document 08/10/24 10:03 [id number] 08/10/24 10:18 Document 08/17/24 11:07 [id number] 08/17/24 11:17 Document 08/24/24 09:56 [id number] 08/24/24 10:07 Document 08/31/24 10:18 [id number] 08/31/24 10:27 08/10/24 08/17/24 08/24/24 10:03 11:07 09:56 Wound Center Nurse 2 #18 Left medial LE cluster -Time 10:03 11:07 09:57 -Correct Patient Yes Yes Yes -Correct Side, Site, Position Yes Yes Yes -Correct Procedure Yes Yes Yes -Procedure Performed Yes Yes Yes -Type of Procedure Debridement Debridement Debridement -Clinical Debridement Subcutaneous Subcutaneous Subcutaneous -Tissue Removed Subcutaneous Subcutaneous Subcutaneous -Post Debridement (cm) - Length 9.0 8.5 8.5 -Post Debridement (cm) - Width 16.1 14.5 14.8 -Post Debridement (cm) - Depth 0.1 0.1 0.1 -Total Square (Post) (cm) 144.90 123.25 125.80 -Area of Debridement (cm) - Length 9.0 8.5 8.5 -Area of Debridement (cm) - Width 16.0 14.5 14.8 -Total Square (Area) (cm) 144.00 123.25 125.80 -Tunneling No No No -Undermining/Tunneling No No No -Circular Undermining No No No -Wound/Ulcer Outcome Not Healed Not Healed Not Healed -Ulcer Cleansing Rinsed/ Rinsed/ Rinsed/ Irrigated with Irrigated with Irrigated with Saline Saline Saline -Foul Odor after Cleansing No No No -Bioengineered Tissue No No No -Bleeding Controlled with Pressure Pressure Pressure -Treatment Response Procedure Procedure Procedure Tolerated Well Tolerated Well Tolerated Well -Debridement - Subq, 1st 20sq cm Yes Yes Yes -Debridement, SubQ, ea addt'l 20sq cm 7 6 6 or part thereof Pain Scale: 0-10 Numeric Is Patient Pain Free? Yes Yes Yes 08/31/24 10:18 Wound Center Nurse 2 #18 Left medial LE cluster -Time 10:18 -Correct Patient Yes -Correct Side, Site, Position Yes -Correct Procedure Yes -Procedure Performed Yes -Type of Procedure Debridement -Clinical Debridement Subcutaneous -Tissue Removed Subcutaneous -Post Debridement (cm) - Length 8.7 -Post Debridement (cm) - Width 14.0 -Post Debridement (cm) - Depth 0.1 -Total Square (Post) (cm) 121.80 -Area of Debridement (cm) - Length 8.7 -Area of Debridement (cm) - Width 14.0 -Total Square (Area) (cm) 121.80 -Tunneling No -Undermining/Tunneling No -Circular Undermining No -Wound/Ulcer Outcome Not Healed -Ulcer Cleansing Rinsed/ Irrigated with Saline -Foul Odor after Cleansing No -Bioengineered Tissue No -Bleeding Controlled with Pressure -Treatment Response Procedure Tolerated Well -Debridement - Subq, 1st 20sq cm Yes -Debridement, SubQ, ea addt'l 20sq cm 6 or part thereof Pain Scale: 0-10 Numeric Is Patient Pain Free? Yes - Nurse 3 - General Ulcer D/C NN Start: 08/10/24 09:41 Freq: Status: Active Protocol: Activity Type Activity Date Activity User E-sign Co-sign Detail Recorded Client Recorded Date Recorded By Document 08/10/24 10:28 KW [id number] 08/10/24 10:28 KW Document 08/24/24 10:13 KW [id number] 08/24/24 10:32 KW Document 08/31/24 10:48 RB [id number] 08/31/24 10:49 RB 08/10/24 08/24/24 08/31/24 10:28 10:13 10:48 Wound Care Center Nurse 3 #18 Left medial LE cluster -Ulcer Cleansing Rinsed/ Irrigated with Saline -Primary Dressing Applied Aquacel Extra Aquacel Extra Aquacel Extra -Other Dressing ABD -Primary Dressing Covered/Secured with Dry Gauze & Dry Gauze & Dry Gauze & Roll Gauze, Roll Gauze, Roll Gauze, Secured with Secured with Secured with Tape Tape Tape -Aquacel Extra 2 1 2 -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) MARCIO wili -Tubular Bandage Single Layer -Size of Tubigrip Used Size E -Size E ($) 2 Right -Compression Wrap Marcio Wrap -Tubular Bandage Double Layer Single Layer -Size of Tubigrip Used Size F Size F -Size F ($) 2 1 Left -Compression Wrap Marcio Wrap Marcio Wrap -Tubular Bandage Single Layer -Size of Tubigrip Used Size F -Size F ($) 1 Treatment Response Procedure Tolerated Well Pain Scale: 0-10 Numeric Is Patient Pain Free? Yes Yes Yes - Visit Discharge Discharge Condition Stable Ambulatory Status Ambulatory, Walker Transportation Private Auto Medication Reconcilliation completed & No provided to patient/care provider Clinical Summary of Care Provided Yes Assessment/Plan Assessment/Plan (1) Lymphedema: CODE(S): I89.0 - Lymphedema, not elsewhere classified (2) Hypertension: CODE(S): I10 - Essential (primary) hypertension QUALIFIERS: Hypertension type: primary hypertension Qualified Code(s): I10 - Essential (primary) hypertension (3) Hyperlipidemia: CODE(S): E78.5 - Hyperlipidemia, unspecified QUALIFIERS: Hyperlipidemia type: mixed hyperlipidemia Qualified Code(s): E78.2 - Mixed hyperlipidemia (4) History of DVT (deep vein thrombosis): CODE(S): Z86.718 - Personal history of other venous thrombosis and embolism (5) Venous insufficiency (chronic) (peripheral): CODE(S): I87.2 - Venous insufficiency (chronic) (peripheral) (6) Venous ulcer of left lower extremity with varicose veins: CODE(S): I83.029 - Varicose veins of left lower extremity with ulcer of unspecified site (7) Edema: CODE(S): R60.9 - Edema, unspecified QUALIFIERS: Edema type: unspecified Qualified Code(s): R60.9 - Edema, unspecified PLAN: Plan Evaluation and debridement of left medial LE ulcer performed today in clinic as annotated above. At home wound-care instructions: Will have him continue Aquacel Extra or Fibracol and ABD changed daily. Use superabsorber if drainage is heavy. Continue compression with F tubigrips b/l. Due to the delayed progress in wound healing of his venous ulcers, we discussed applying for advanced wound healing product for healing his ulcer. Due to the size of his ulcer, Theraskin application approval is being requested from his insurance as it is medically necessary for salvaging his limb and healing his ulcer. He underwent 2 applications of Theraskin to this ulcer. Since application of Theraskin he has had much improvement in epithelialization of his ulcer even though the overall size is not significantly changed there is progress. Off-loading: The patient was instructed to avoid pressure and friction on the affected areas. Reposition every 2 hours at minimum. Avoid prolonged standing and/or dangling of legs. When seated, feet should be elevated at chest level. Frequent ambulation is encouraged. Encouraged lymphedema pump use. Diet: Patient encouraged to increase protein intake while taking caution to avoid high carbohydrate and/or sugar intake. Labs/cultures/imaging: Wound culture showed Pseudomonas, Escherichia hermannii, Raoultella planticola, Vancomycin Resist. E. faecalis, Alcaligenes faecalis ssp faeca, Staphylococcus cohnii urealyti and anaerobic bacteria on 06/15/24 and he completed on Levofloxacin and Augmentin. Follow-up: Return in 2 weeks for wound care follow up and have dressing changed by home health Tuesday and Tuesday. Return sooner or report to the emergency room should symptoms worsen, or new symptoms arise. Note: [employer] speech recognition transmission and coordination engineer software was used to create portions of this document. Sound-alike and misspelled words, as well as other transmission and coordination engineer errors may be contained in the documentation.
== END 2024-09-08 23:59 | disposition home or self-care (01) ==
LOC: WC 09:30
PROVIDERS: PCP Family Medicine; Referring Provider Family Medicine; Visit Provider Family Medicine
DX: I89.0 Lymphedema, not elsewhere classified (principal); I83.029 Varicose veins of left lower extremity with ulcer of unspecified site; L97.922 Non-pressure chronic ulcer of unspecified part of left lower leg with fat layer exposed; Z86.718 Personal history of other venous thrombosis and embolism; I10 Essential (primary) hypertension; I87.2 Venous insufficiency (chronic) (peripheral); R60.9 Edema, unspecified; E78.2 Mixed hyperlipidemia
CPT/HCPCS: 11042; 11045; 84134

== ENCOUNTER 2024-09-26 16:08 | Outpatient (RCR) | payer MEDICARE, OTHER, SELFPAY ==
[2024-09-26 17:10] LABS: Bacteria 0 SEEN /hpf (None Seen); Mucous, Urine 0 SEEN /hpf (<or=2+)
[2024-09-26 17:13] LABS: Color, Urine Yellow (Yellow); Glucose, Dipstick Normal (Normal); Ketone-Dipstick Negative (Negative); Leukocyte Esterase-Dipstick Negative /ul (Negative); Nitrite-Dipstick Negative (Negative); Occult Blood-Urine Negative /ul (Negative); Protein-Dipstick Negative (Negative); Urine Bilirubin Dipstick Negative (Negative); Urine Clarity Clear (Clear); Urine Urobilinogen Normal (Normal)
[2024-09-26 17:17] LABS: Hematocrit 43.5 % (40-54); Hemoglobin 13.9 g/dL (13.0-16.5); Mean Corpuscular Hgb 31.4 pg (27.0-32.0); Mean Corpuscular Volume 98.4 fL (80-94); Mean Platelet Vol. 9.7 fl (6.2-12.0); Platelet Count 293 K/mm3 (150-450); RBC Distribution Width CV 14.2 % (11.6-14.6); RBC Distribution Width SD 51.8 fl (35.1-43.9); Red Blood Count 4.42 M/mm3 (4.6-6.2)
[2024-09-26 17:23] LABS: ALB/GLOB Ratio 0.9 RATIO (0.9-2.4); AST(SGOT) 12 U/L (15-37); Alanine Aminotransfer ALT/SGPT 16 U/L (16-61); Albumin, Serum 3.5 g/dL (3.2-5.0); Alkaline Phosphatase 130 U/L (45-117); Anion Gap 2 (5-15); BUN 23 mg/dL (7-18); BUN/Creat Ratio 32.8 RATIO (10-20); Chloride 102 mmol/L (98-107); EST Glomerular Filtration Rate 119 mL/min (>60); Est Glom Filt Rate - Afr Amer 144 mL/min (>60); Globulin 3.8 g/dL (2.2-4.2); Glucose 102 mg/dL (74-106); Potassium 4.2 mmol/L (3.5-5.1); Protein, Total 7.3 g/dL (6.4-8.2); Sodium Level 138 mmol/L (136-145)
[2024-09-26 20:41] LABS: Red Blood Cells-Urine 0-5 SEEN /hpf (0-5); White Blood Cells 0-5 SEEN /hpf (0-5)
[2024-09-26 20:42] LABS: Squamous Epithelial Cells - UA 0-5 SEEN /hpf (0-5)
== END 2024-09-26 18:00 | disposition home or self-care (01) ==
LOC: HHLAB 16:08
PROVIDERS: PCP Family Medicine; Referring Provider Family Medicine; Visit Provider Family Medicine
DX: I83.028 Varicose veins of left lower extremity with ulcer other part of lower leg (principal)
CPT/HCPCS: 80053; 81001; 85027; 87086

== ENCOUNTER → 2024-09-27 | Outpatient (CLI) | payer MEDICARE, OTHER, SELFPAY ==
--- NOTE | 2024-09-27 10:22 | RAD_ITS ---
STUDY: X-RAY - LUMBAR SPINE REASON FOR EXAM: Male, 69 years old. DORSALGIA TECHNIQUE: 5 view(s) of the lumbar spine were obtained. COMPARISON: X-ray the lumbar spine dated June 22, 2024 FINDINGS: Normal lumbar lordosis. There is no substantial scoliosis. No visualized fracture or new compression deformity. Old compression deformities of L2 and L3 are present with mild loss of height. There is multilevel endplate spondylosis of the lumbar vertebrae. There is mild to moderate multi-level degenerative disc disease with multi-level disc space narrowing. Anterolisthesis of L4 and L5 of 2 to 3 mm. Multilevel facet joint hypertrophy is present. The soft tissue structures are unremarkable. Stable IVC filter. RAD/L/S Spine Min 4 Views IMPRESSION: Degenerative changes of the spine, as detailed above. Electronically Signed: Matthew Urias MD at 10:55 EST ,
--- NOTE | 2024-09-27 10:22 | RAD_ITS ---
EXAM: XR ABDOMEN, 1 VIEW CLINICAL INDICATION: ABD PAIN TECHNIQUE: Frontal supine view of the abdomen/pelvis. COMPARISON: No relevant prior studies available. FINDINGS: GASTROINTESTINAL TRACT: Normal bowel gas pattern. ORGANS: No organomegaly. BONES/JOINTS: No acute abnormality. VASCULATURE: IVC filter in place. Please assess for management plan for the patient''s IVC filter. If no plan in place referral to interventional clinician on a nonemergent basis for evaluation is recommended. RAD/Abdomen Single View IMPRESSION: No acute findings. Electronically Signed: Galdino Woods MD at 17:01 EST ,
== END | disposition home or self-care (01) ==
LOC: RAD 10:14
PROVIDERS: PCP Family Medicine; Referring Provider Family Medicine; Visit Provider Family Medicine
DX: M54.9 Dorsalgia, unspecified (principal); R10.9 Unspecified abdominal pain
CPT/HCPCS: 72110; 74018

== ENCOUNTER 2024-10-05 10:00 | Outpatient (RCR) | payer MEDICARE, OTHER, SELFPAY ==
[2024-09-09 00:18] VITALS: BP 114/57; PULSE 73; RESP 18; TEMP 36.4
[2024-09-14 09:59] VITALS: BP 141/69; PULSE 71; RESP 18; TEMP 35.5
--- NOTE | 2024-09-14 15:19 | PCM.WC.PN ---
History of Present Illness Date of Service: 09/14/24 Chief Complaint: venous ulcers of left lower extremity History of Wound: Mauricio is a 69 yo gentleman who is here today for evaluation of ulcers to to his bilateral lower legs. He has been treated multiple times in the past at the wound healing center for similar ulcers. The left LE ulcer started after he developed increased swelling and blisters of left leg in October and the right leg started sometime at the end of October. He was seen at PCP's office a culture was taken and it was resistant to several antibiotics. He was treated initially with Levaquin but had myalgias and then was treated with doxycycline which he finished 2 days ago. He denies improvement and is having swelling to his left calf and thigh. He has been having swelling to both lower extremities for many years and it has worsened over the last few months. He has not been compliant with compression. He has had increased pain especially in the left leg. He has clear yellow drainage and redness without odor or warmth. He is anti-coagulated on coumadin. He has been washing with Dial soap and witch ifrah. He had been using Collagen at times and using Calcium Alginate and covering with ABD pads during October. He was treated with 3M compression and Aquacel Ag. He was referred to the wound center for ongoing treatment. His ulcers have moderate to heavy drainage. He was recently hospitalized for cellulitis and edema for the last 10 days. He was in the hospital from 11/30/22 until 12/09/22 for treatment of cellulitis and edema. He underwent treatment with Vancomycin and IV lasix and compression. Discharged on 12/09/22. He returned to his assisted living apartment on Tuesday12/21/22. Subjective Subjective Mauricio is a 69-year-old male with longstanding history of chronic venous ulceration to the left lower extremity. Wound culture from 06/15/24 were positive for multiple bacteria and he completed antibiotic treatment. He has had decreased drainage this week. His edema is remains better this week and he has been using ABDs and Aquacel Extra. There has been improvement in his ulcer overall this week. He is using MARCIO and size F Tubigrips for compression. 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 He continues to use his lymphedema pumps but continues to have pain with use of these pumps. Objective Data Objective Data Vital Signs: Vital Signs Temp Pulse Resp BP 96 F L 71 18 141/69 H 09/14/24 09:59 09/14/24 09:59 09/14/24 09:59 09/14/24 09:59 Physical Exam Const alert, oriented x3 and no apparent distress General Appearance: cooperative and comfortable HEENT normocephalic and head/scalp atraumatic Lymph Lymphatic: lymphedema moderate Resp normal respiratory effort Effort and Inspection: able to speak in complete sentences Cardio regular rate and regular rhythm Extremity General Extremity: edema bilateral lower extremity Details: severe Skin General Skin Exam: venous stasis and dermatitis Wounds: wounds noted Wound Narrative: as in clinical panel, no cellulitis or odor, decreased depth, + granulation tissue Psych mental status grossly normal, thought process normal, cooperative and affect normal Debridement Note Debridement Note Wound debrided: left medial LE Laterality: Left Type of Debridement: Excisional debridement Anesthesia Used: 4% Lidocaine Solution, 5% Lidocaine Gel and Cetacaine Depth: Down to and including healthy tissue and in the subcutaneous layer Percentage of wound debrided: 100 Instrument Used: - (misonix ultrasonic debridement) Tissue Removed: Yellow slough, devitalized tissue Severity: Fat Layer Exposed Amount of bleeding with debridement: Mild Bleeding Controlled with: Compression and gauze Patient tolerated procedure: Patient tolerated procedure well Post-Debridement Measurements and Additional Note: Post-Debridement Measurements/Treatment - Nurse 1 - General Ulcer Assessment Start: 09/14/24 09:58 Freq: Status: Active Protocol: .LOWDIPIKAT Activity Type Activity Date Activity User E-sign Co-sign Detail Recorded Client Recorded Date Recorded By Document 09/14/24 09:59 [id number] 09/14/24 10:16 09/14/24 09:59 - Today's Visit Information Type of service Follow-up Visit (Physician/CAGE CLERK ) Arrival Mode Ambulatory Transfer Assistance None Patient Identification Verified (Name & Yes ) Patient Requires Transmission-Based No Precautions Vital Signs Temperature (97.8 F-99.1 F) 96 F L Temperature Source Temporal Pulse Rate (60-100) 71 Pulse Location Monitor Respiratory Rate (12-18) 18 Respiratory rate source Observation Blood Pressure (90/60-120/80) 141/69 H Blood Pressure Mean (mm Hg) 93 Source Monitor Position Semi-Fowlers Blood Pressure Location Left Arm History Since Last Visit- (Skip if this is Patient's initial visit) Have you changed medications since your No last visit? Any new allergies or adverse reactions No Had a fall/change in ADL's that may No increase risk of falls Signs or symptoms of abuse and/or No neglect since last visit Have you been in the hospital since your No last visit? Has dressing in place as prescribed Yes Has compression in place as prescribed Yes Has offloadiing in place as prescribed No Experienced any changes in pain level or No management Pain Scale: 0-10 Numeric Is Patient Pain Free? No LLE -Description Aching -Intensity 6 -Duration (hours) Acute -Pain Behavior Withdrawal from Touch -Pain Aggravating Factors Exercise/ Activity -Alleviating Factors/Interventions Medication -Effectiveness of Alleviating Factor/ Moderately Intervention effective WC - Nurse 1 - General Ulcer Measurement Start: 09/14/24 09:58 Freq: Status: Active Protocol: Activity Type Activity Date Activity User E-sign Co-sign Detail Recorded Client Recorded Date Recorded By Document 09/14/24 09:59 RB [id number] 09/14/24 10:16 RB 09/14/24 09:59 Wound Center Nurse 1 #18 Left medial LE cluster -Combined with other wound No -Current Size (cm) - Length 17 -Current Size (cm) - Width 9 -Current Size (cm) - Depth 0.1 -Total Square Cm 153 -Tunneling No -Undermining/Tunneling No -Circular Undermining No -Exudate Amt Large -Exudate Type Serosanguineous -Wound Margin Distinct, Outline Attached -Granulation Amt Large (67-100%) -Granulation Quality [facility] -Slough/Fibrin Yes -Necrosis Amt Medium (34-66%) -Necrotic Tissue Type Adherent Slough -Structure Exposed N/A -Texture (Marie-wound Skin Appearance) Assessed, Localized Edema -Moisture (Marie-wound Skin Appearance) Assessed,Dry/ Scaly -Color (Marie-wound Skin Appearance) Assessed -Temperature (Marie-wound Skin No Abnormality Appearance) (Pt Warm) -Tenderness on Palpation (Marie-wound No Skin Appearance) -Ulcer Cleansing Wound Cleanser -Foul Odor after Cleansing No -Anesthetic Used 5% Lidocaine Gel Lower Limb Edema Present Yes Right Calf (cm) 48 Right Ankle (cm) 30.5 Left Calf (cm) 44.5 Left Ankle (cm) 30.5 WC - Nurse 2 - General Ulcer CM Notes Start: 09/14/24 09:58 Freq: Status: Active Protocol: Activity Type Activity Date Activity User E-sign Co-sign Detail Recorded Client Recorded Date Recorded By Document 09/14/24 10:48 [id number] 09/14/24 11:02 09/14/24 10:48 Wound Center Nurse 2 #18 Left medial LE cluster -Time 10:50 -Correct Patient Yes -Correct Side, Site, Position Yes -Correct Procedure Yes -Procedure Performed Yes -Type of Procedure Debridement -Clinical Debridement Subcutaneous -Tissue Removed Subcutaneous -Post Debridement (cm) - Length 8.8 -Post Debridement (cm) - Width 13.8 -Post Debridement (cm) - Depth 0.1 -Total Square (Post) (cm) 121.44 -Area of Debridement (cm) - Length 8.8 -Area of Debridement (cm) - Width 13.8 -Total Square (Area) (cm) 121.44 -Tunneling No -Undermining/Tunneling No -Circular Undermining No -Wound/Ulcer Outcome Not Healed -Ulcer Cleansing Rinsed/ Irrigated with Saline -Foul Odor after Cleansing No -Bioengineered Tissue No -Bleeding Controlled with Pressure -Treatment Response Procedure Tolerated Well -Debridement - Subq, 1st 20sq cm Yes -Debridement, SubQ, ea addt'l 20sq cm 6 or part thereof Pain Scale: 0-10 Numeric Is Patient Pain Free? Yes - Nurse 3 - General Ulcer D/C NN Start: 09/14/24 09:58 Freq: Status: Active Protocol: Activity Type Activity Date Activity User E-sign Co-sign Detail Recorded Client Recorded Date Recorded By Document 09/14/24 11:17 [id number] 09/14/24 11:18 09/14/24 11:17 Wound Care Center Nurse 3 #18 Left medial LE cluster -Primary Dressing Applied Aquacel Extra -Primary Dressing Covered/Secured with Dry Gauze & Roll Gauze, Secured with Tape -Aquacel Extra 1 Left -Compression Wrap Marcio Wrap -Size of Tubigrip Used Size F Pain Scale: 0-10 Numeric Is Patient Pain Free? Yes - Visit Discharge Discharge Condition Stable Ambulatory Status Walker Medication Reconcilliation completed & No provided to patient/care provider Clinical Summary of Care Provided Yes Assessment/Plan Assessment/Plan (1) Lymphedema: CODE(S): I89.0 - Lymphedema, not elsewhere classified (2) Hypertension: CODE(S): I10 - Essential (primary) hypertension QUALIFIERS: Hypertension type: primary hypertension Qualified Code(s): I10 - Essential (primary) hypertension (3) Hyperlipidemia: CODE(S): E78.5 - Hyperlipidemia, unspecified QUALIFIERS: Hyperlipidemia type: mixed hyperlipidemia Qualified Code(s): E78.2 - Mixed hyperlipidemia (4) History of DVT (deep vein thrombosis): CODE(S): Z86.718 - Personal history of other venous thrombosis and embolism (5) Venous insufficiency (chronic) (peripheral): CODE(S): I87.2 - Venous insufficiency (chronic) (peripheral) (6) Venous ulcer of left lower extremity with varicose veins: CODE(S): I83.029 - Varicose veins of left lower extremity with ulcer of unspecified site (7) Edema: CODE(S): R60.9 - Edema, unspecified QUALIFIERS: Edema type: unspecified Qualified Code(s): R60.9 - Edema, unspecified PLAN: Plan Evaluation and debridement of left medial LE ulcer performed today in clinic as annotated above. At home wound-care instructions: Will have him continue Aquacel Extra or Fibracol and ABD changed daily. Use superabsorber if drainage is heavy. Continue compression with F tubigrips b/l. Due to the delayed progress in wound healing of his venous ulcers, we discussed applying for advanced wound healing product for healing his ulcer. Due to the size of his ulcer, Therask[employer] application approval is being requested from his insurance as it is medically necessary for salvaging his limb and healing his ulcer. He underwent 2 applications of Theraskin to this ulcer. Since application of Theraskin he has had much improvement in epithelialization of his ulcer even though the overall size is not significantly changed there is progress. Off-loading: The patient was instructed to avoid pressure and friction on the affected areas. Reposition every 2 hours at minimum. Avoid prolonged standing and/or dangling of legs. When seated, feet should be elevated at chest level. Frequent ambulation is encouraged. Encouraged lymphedema pump use. Diet: Patient encouraged to increase protein intake while taking caution to avoid high carbohydrate and/or sugar intake. Labs/cultures/imaging: Wound culture showed Pseudomonas, Escherichia hermannii, Raoultella planticola, Vancomycin Resist. E. faecalis, Alcaligenes faecalis ssp faeca, Staphylococcus cohnii urealyti and anaerobic bacteria on 06/15/24 and he completed on Levofloxacin and Augmentin. Follow-up: Return in 1 week for wound care follow up and have dressing changed by home health Tuesday and Tuesday. Return sooner or report to the emergency room should symptoms worsen, or new symptoms arise. Note: [employer] speech recognition manufacturing engineering director software was used to create portions of this document. Sound-alike and misspelled words, as well as other manufacturing engineering director errors may be contained in the documentation.
[2024-09-21 10:02] VITALS: BP 127/74; PULSE 74; RESP 18; TEMP 35.9
--- NOTE | 2024-09-21 12:41 | PCM.WC.PN ---
History of Present Illness Date of Service: 09/21/24 Chief Complaint: venous ulcers of left lower extremity History of Wound: Mauricio is a 69 yo gentleman who is here today for evaluation of ulcers to to his bilateral lower legs. He has been treated multiple times in the past at the wound healing center for similar ulcers. The left LE ulcer started after he developed increased swelling and blisters of left leg in October and the right leg started sometime at the end of October. He was seen at PCP's office a culture was taken and it was resistant to several antibiotics. He was treated initially with Levaquin but had myalgias and then was treated with doxycycline which he finished 2 days ago. He denies improvement and is having swelling to his left calf and thigh. He has been having swelling to both lower extremities for many years and it has worsened over the last few months. He has not been compliant with compression. He has had increased pain especially in the left leg. He has clear yellow drainage and redness without odor or warmth. He is anti-coagulated on coumadin. He has been washing with Dial soap and witch ifrah. He had been using Collagen at times and using Calcium Alginate and covering with ABD pads during October. He was treated with 3M compression and Aquacel Ag. He was referred to the wound center for ongoing treatment. His ulcers have moderate to heavy drainage. He was recently hospitalized for cellulitis and edema for the last 10 days. He was in the hospital from 11/30/22 until 12/09/22 for treatment of cellulitis and edema. He underwent treatment with Vancomycin and IV lasix and compression. Discharged on 12/09/22. He returned to his assisted living apartment on Tuesday12/21/22. Subjective Subjective Mauricio is a 69-year-old male with longstanding history of chronic venous ulceration to the left lower extremity. Wound culture from 06/15/24 were positive for multiple bacteria and he completed antibiotic treatment. He has had decreased drainage this week. His edema is remains better this week and he has been using ABDs and Aquacel Extra. There has been improvement in his ulcer overall this week. He is using MARCIO and size F Tubigrips for compression. 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 He continues to use his lymphedema pumps but continues to have pain with use of these pumps. Objective Data Objective Data Vital Signs: Vital Signs Temp Pulse Resp BP 96.6 F L 74 18 127/74 H 09/21/24 10:02 09/21/24 10:02 09/21/24 10:02 09/21/24 10:02 Physical Exam Const alert, oriented x3 and no apparent distress General Appearance: cooperative and comfortable HEENT normocephalic and head/scalp atraumatic Lymph Lymphatic: lymphedema moderate Resp normal respiratory effort Effort and Inspection: able to speak in complete sentences Cardio regular rate and regular rhythm Extremity General Extremity: edema bilateral lower extremity Details: severe Skin General Skin Exam: venous stasis and dermatitis Wounds: wounds noted Wound Narrative: as in clinical panel, no cellulitis or odor, decreased depth, + granulation tissue Psych mental status grossly normal, thought process normal, cooperative and affect normal Debridement Note Debridement Note Wound debrided: left medial LE Laterality: Left Type of Debridement: Excisional debridement Anesthesia Used: 4% Lidocaine Solution, 5% Lidocaine Gel and Cetacaine Depth: Down to and including healthy tissue and in the subcutaneous layer Percentage of wound debrided: 100 Instrument Used: - (misonix ultrasonic debridement) Tissue Removed: Yellow slough, devitalized tissue Severity: Fat Layer Exposed Amount of bleeding with debridement: Mild Bleeding Controlled with: Compression and gauze Patient tolerated procedure: Patient tolerated procedure well Post-Debridement Measurements and Additional Note: Post-Debridement Measurements/Treatment - Nurse 1 - General Ulcer Assessment Start: 09/14/24 09:58 Freq: Status: Active Protocol: WC.LOWDIPIKAT Activity Type Activity Date Activity User E-sign Co-sign Detail Recorded Client Recorded Date Recorded By Document 09/14/24 09:59 [id number] 09/14/24 10:16 RB Document 09/21/24 10:02 RB [id number] 09/21/24 10:04 RB 09/14/24 09/21/24 09:59 10:02 - Today's Visit Information Type of service Follow-up Visit Follow-up Visit (Physician/BUSINESS LIBRARIAN (Physician/BUSINESS LIBRARIAN ) ) Arrival Mode Ambulatory Ambulatory, Walker Transfer Assistance None None Patient Identification Verified (Name & Yes Yes ) Patient Requires Transmission-Based No No Precautions Vital Signs Temperature (97.8 F-99.1 F) 96 F L 96.6 F L Temperature Source Temporal Temporal Pulse Rate (60-100) 71 74 Pulse Location Monitor Monitor Respiratory Rate (12-18) 18 18 Respiratory rate source Observation Observation Blood Pressure (90/60-120/80) 141/69 H 127/74 H Blood Pressure Mean (mm Hg) 93 91 Source Monitor Monitor Position Semi-Fowlers Semi-Fowlers Blood Pressure Location Left Arm Left Arm History Since Last Visit- (Skip if this is Patient's initial visit) Have you changed medications since your No No last visit? Any new allergies or adverse reactions No No Had a fall/change in ADL's that may No No increase risk of falls Signs or symptoms of abuse and/or No No neglect since last visit Have you been in the hospital since your No No last visit? Has dressing in place as prescribed Yes Yes Has compression in place as prescribed Yes No Has offloadiing in place as prescribed No No Experienced any changes in pain level or No No management Pain Scale: 0-10 Numeric Is Patient Pain Free? No Yes LLE -Description Aching -Intensity 6 -Duration (hours) Acute -Pain Behavior Withdrawal from Touch -Pain Aggravating Factors Exercise/ Activity -Alleviating Factors/Interventions Medication -Effectiveness of Alleviating Factor/ Moderately Intervention effective WC - Nurse 1 - General Ulcer Measurement Start: 09/14/24 09:58 Freq: Status: Active Protocol: Activity Type Activity Date Activity User E-sign Co-sign Detail Recorded Client Recorded Date Recorded By Document 09/14/24 09:59 RB [id number] 09/14/24 10:16 RB Document 09/21/24 10:02 RB [id number] 09/21/24 10:04 RB 09/14/24 09/21/24 09:59 10:02 Wound Center Nurse 1 #18 Left medial LE cluster -Combined with other wound No No -Current Size (cm) - Length 17 16 -Current Size (cm) - Width 9 8.5 -Current Size (cm) - Depth 0.1 0.1 -Total Square Cm 153 136.0 -Tunneling No No -Undermining/Tunneling No No -Circular Undermining No No -Exudate Amt Large Large -Exudate Type Serosanguineous Serosanguineous -Wound Margin Distinct, Distinct, Outline Outline Attached Attached -Granulation Amt Large (67-100%) Large (67-100%) -Granulation Quality Galion Galion,Red -Slough/Fibrin Yes Yes -Necrosis Amt Medium (34-66%) Medium (34-66%) -Necrotic Tissue Type Adherent Slough Adherent Slough -Structure Exposed N/A N/A -Texture (Marie-wound Skin Appearance) Assessed, Assessed Localized Edema -Moisture (Marie-wound Skin Appearance) Assessed,Dry/ Maceration Scaly -Color (Marie-wound Skin Appearance) Assessed Assessed -Temperature (Marie-wound Skin No Abnormality No Abnormality Appearance) (Pt Warm) (Pt Warm) -Tenderness on Palpation (Marie-wound No No Skin Appearance) -Ulcer Cleansing Wound Cleanser Wound Cleanser -Foul Odor after Cleansing No No -Anesthetic Used 5% Lidocaine 5% Lidocaine Gel Gel Lower Limb Edema Present Yes Yes Right Calf (cm) 48 45.7 Right Ankle (cm) 30.5 28.5 Left Calf (cm) 44.5 43.5 Left Ankle (cm) 30.5 29.2 WC - Nurse 2 - General Ulcer CM Notes Start: 09/14/24 09:58 Freq: Status: Active Protocol: Activity Type Activity Date Activity User E-sign Co-sign Detail Recorded Client Recorded Date Recorded By Document 09/14/24 10:48 [id number] 09/14/24 11:02 Document 09/21/24 10:20 [id number] 09/21/24 10:31 09/14/24 09/21/24 10:48 10:20 Wound Center Nurse 2 #18 Left medial LE cluster -Time 10:50 10:20 -Correct Patient Yes Yes -Correct Side, Site, Position Yes Yes -Correct Procedure Yes Yes -Procedure Performed Yes Yes -Type of Procedure Debridement Debridement -Clinical Debridement Subcutaneous Subcutaneous -Tissue Removed Subcutaneous Subcutaneous -Post Debridement (cm) - Length 8.8 8.6 -Post Debridement (cm) - Width 13.8 13.8 -Post Debridement (cm) - Depth 0.1 0.1 -Total Square (Post) (cm) 121.44 118.68 -Area of Debridement (cm) - Length 8.8 8.6 -Area of Debridement (cm) - Width 13.8 13.8 -Total Square (Area) (cm) 121.44 118.68 -Tunneling No No -Undermining/Tunneling No No -Circular Undermining No No -Wound/Ulcer Outcome Not Healed Not Healed -Ulcer Cleansing Rinsed/ Rinsed/ Irrigated with Irrigated with Saline Saline -Foul Odor after Cleansing No No -Bioengineered Tissue No No -Bleeding Controlled with Pressure Pressure -Treatment Response Procedure Procedure Tolerated Well Tolerated Well -Debridement - Subq, 1st 20sq cm Yes Yes -Debridement, SubQ, ea addt'l 20sq cm 6 5 or part thereof Pain Scale: 0-10 Numeric Is Patient Pain Free? Yes Yes - Nurse 3 - General Ulcer D/C NN Start: 09/14/24 09:58 Freq: Status: Active Protocol: Activity Type Activity Date Activity User E-sign Co-sign Detail Recorded Client Recorded Date Recorded By Document 09/14/24 11:17 KW [id number] 09/14/24 11:18 KW Document 09/21/24 11:00 RB [id number] 09/21/24 11:00 RB 09/14/24 09/21/24 11:17 11:00 Wound Care Center Nurse 3 #18 Left medial LE cluster -Ulcer Cleansing Rinsed/ Irrigated with Saline -Primary Dressing Applied Aquacel Extra Aquacel Extra -Other Dressing ABD -Primary Dressing Covered/Secured with Dry Gauze & Dry Gauze & Roll Gauze, Roll Gauze, Secured with Secured with Tape Tape -Aquacel Extra 1 2 wili -Tubular Bandage Single Layer -Size of Tubigrip Used Size F -Size F ($) 2 Left -Compression Wrap Marcio Wrap -Size of Tubigrip Used Size F Treatment Response Procedure Tolerated Well Pain Scale: 0-10 Numeric Is Patient Pain Free? Yes Yes - Visit Discharge Discharge Condition Stable Stable Ambulatory Status Walker Ambulatory, Walker Transportation Private Auto Medication Reconcilliation completed & No No provided to patient/care provider Clinical Summary of Care Provided Yes Yes Assessment/Plan Assessment/Plan (1) Lymphedema: CODE(S): I89.0 - Lymphedema, not elsewhere classified (2) Hypertension: CODE(S): I10 - Essential (primary) hypertension QUALIFIERS: Hypertension type: primary hypertension Qualified Code(s): I10 - Essential (primary) hypertension (3) Hyperlipidemia: CODE(S): E78.5 - Hyperlipidemia, unspecified QUALIFIERS: Hyperlipidemia type: mixed hyperlipidemia Qualified Code(s): E78.2 - Mixed hyperlipidemia (4) History of DVT (deep vein thrombosis): CODE(S): Z86.718 - Personal history of other venous thrombosis and embolism (5) Venous insufficiency (chronic) (peripheral): CODE(S): I87.2 - Venous insufficiency (chronic) (peripheral) (6) Venous ulcer of left lower extremity with varicose veins: CODE(S): I83.029 - Varicose veins of left lower extremity with ulcer of unspecified site (7) Edema: CODE(S): R60.9 - Edema, unspecified QUALIFIERS: Edema type: unspecified Qualified Code(s): R60.9 - Edema, unspecified PLAN: Plan Evaluation and debridement of left medial LE ulcer performed today in clinic as annotated above. At home wound-care instructions: Will have him continue Calcium Alginate or Fibracol and ABD changed daily. Use superabsorber if drainage is heavy. Continue compression with F tubigrips b/l. Due to the delayed progress in wound healing of his venous ulcers, we discussed applying for advanced wound healing product for healing his ulcer. Due to the size of his ulcer, Theraskin application approval was requested from his insurance as it is medically necessary for salvaging his limb and healing his ulcer. He underwent 2 applications of Theraskin to this ulcer. Since application of Theraskin he has had much improvement in epithelialization of his ulcer even though the overall size is not significantly changed there is progress. Off-loading: The patient was instructed to avoid pressure and friction on the affected areas. Reposition every 2 hours at minimum. Avoid prolonged standing and/or dangling of legs. When seated, feet should be elevated at chest level. Frequent ambulation is encouraged. Encouraged lymphedema pump use. Diet: Patient encouraged to increase protein intake while taking caution to avoid high carbohydrate and/or sugar intake. Labs/cultures/imaging: Wound culture showed Pseudomonas, Escherichia hermannii, Raoultella planticola, Vancomycin Resist. E. faecalis, Alcaligenes faecalis ssp faeca, Staphylococcus cohnii urealyti and anaerobic bacteria on 06/15/24 and he completed on Levofloxacin and Augmentin. Follow-up: Return in 1 week for wound care follow up and have dressing changed by home health Tuesday and Tuesday. Return sooner or report to the emergency room should symptoms worsen, or new symptoms arise. Note: [employer] speech recognition part time receptionist software was used to create portions of this document. Sound-alike and misspelled words, as well as other part time receptionist errors may be contained in the documentation.
[2024-09-28 12:03] VITALS: BP 135/76; PULSE 70; RESP 18; TEMP 35.7
--- NOTE | 2024-09-28 13:13 | PCM.WC.PN ---
History of Present Illness Date of Service: 09/28/24 Chief Complaint: venous ulcers of left lower extremity History of Wound: Mauricio is a 69 yo gentleman who is here today for evaluation of ulcers to to his bilateral lower legs. He has been treated multiple times in the past at the wound healing center for similar ulcers. The left LE ulcer started after he developed increased swelling and blisters of left leg in October and the right leg started sometime at the end of October. He was seen at PCP's office a culture was taken and it was resistant to several antibiotics. He was treated initially with Levaquin but had myalgias and then was treated with doxycycline which he finished 2 days ago. He denies improvement and is having swelling to his left calf and thigh. He has been having swelling to both lower extremities for many years and it has worsened over the last few months. He has not been compliant with compression. He has had increased pain especially in the left leg. He has clear yellow drainage and redness without odor or warmth. He is anti-coagulated on coumadin. He has been washing with Dial soap and witch ifrah. He had been using Collagen at times and using Calcium Alginate and covering with ABD pads during October. He was treated with 3M compression and Aquacel Ag. He was referred to the wound center for ongoing treatment. His ulcers have moderate to heavy drainage. He was recently hospitalized for cellulitis and edema for the last 10 days. He was in the hospital from 11/30/22 until 12/09/22 for treatment of cellulitis and edema. He underwent treatment with Vancomycin and IV lasix and compression. Discharged on 12/09/22. He returned to his assisted living apartment on Tuesday12/21/22. Subjective Subjective Mauricio is a 69-year-old male with longstanding history of chronic venous ulceration to the left lower extremity. Wound culture from 06/15/24 were positive for multiple bacteria and he completed antibiotic treatment. He has had decreased drainage this week. His edema is remains better this week and he has been using ABDs and Aquacel Extra. There has been improvement in his ulcer overall this week. He is using MARCIO and size F Tubigrips for compression. 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 He continues to use his lymphedema pumps but continues to have pain with use of these pumps. Objective Data Objective Data Vital Signs: Vital Signs Temp Pulse Resp BP 96.2 F L 70 18 135/76 H 09/28/24 12:03 09/28/24 12:03 09/28/24 12:03 09/28/24 12:03 Physical Exam Const alert, oriented x3 and no apparent distress General Appearance: cooperative and comfortable HEENT normocephalic and head/scalp atraumatic Lymph Lymphatic: lymphedema moderate Resp normal respiratory effort Effort and Inspection: able to speak in complete sentences Cardio regular rate and regular rhythm Extremity General Extremity: edema bilateral lower extremity Details: severe Skin General Skin Exam: venous stasis and dermatitis Wounds: wounds noted Wound Narrative: as in clinical panel, no cellulitis or odor, there is decreased depth, + granulation tissue Psych mental status grossly normal, thought process normal, cooperative and affect normal Debridement Note Debridement Note Wound debrided: left medial LE Laterality: Left Type of Debridement: Excisional debridement Anesthesia Used: 4% Lidocaine Solution and 5% Lidocaine Gel Depth: Down to and including healthy tissue and in the subcutaneous layer Percentage of wound debrided: 100 Instrument Used: - (Misonix ultrasonic debridement) Tissue Removed: Yellow slough, devitalized tissue Severity: Fat Layer Exposed Amount of bleeding with debridement: Mild Bleeding Controlled with: Compression and gauze Patient tolerated procedure: Patient tolerated procedure well Post-Debridement Measurements and Additional Note: Post-Debridement Measurements/Treatment - Nurse 1 - General Ulcer Assessment Start: 09/14/24 09:58 Freq: Status: Active Protocol: .MARIAJOSE Activity Type Activity Date Activity User E-sign Co-sign Detail Recorded Client Recorded Date Recorded By Document 09/14/24 09:59 RB [id number] 09/14/24 10:16 RB Document 09/21/24 10:02 RB [id number] 09/21/24 10:04 RB Document 09/28/24 12:03 RB [id number] 09/28/24 12:05 RB 09/14/24 09/21/24 09/28/24 09:59 10:02 12:03 - Today's Visit Information Type of service Follow-up Visit Follow-up Visit Follow-up Visit (Physician/RECEIVABLE CLERK (Physician/RECEIVABLE CLERK (Physician/RECEIVABLE CLERK ) ) ) Arrival Mode Ambulatory Ambulatory, Ambulatory, Walker Walker Transfer Assistance None None None Patient Identification Verified (Name & Yes Yes Yes ) Patient Requires Transmission-Based No No No Precautions Vital Signs Temperature (97.8 F-99.1 F) 96 F L 96.6 F L 96.2 F L Temperature Source Temporal Temporal Temporal Pulse Rate (60-100) 71 74 70 Pulse Location Monitor Monitor Monitor Respiratory Rate (12-18) 18 18 18 Respiratory rate source Observation Observation Observation Blood Pressure (90/60-120/80) 141/69 H 127/74 H 135/76 H Blood Pressure Mean (mm Hg) 93 91 95 Source Monitor Monitor Monitor Position Semi-Fowlers Semi-Fowlers Semi-Fowlers Blood Pressure Location Left Arm Left Arm Left Arm History Since Last Visit- (Skip if this is Patient's initial visit) Have you changed medications since your No No No last visit? Any new allergies or adverse reactions No No No Had a fall/change in ADL's that may No No No increase risk of falls Signs or symptoms of abuse and/or No No No neglect since last visit Have you been in the hospital since your No No No last visit? Has dressing in place as prescribed Yes Yes Yes Has compression in place as prescribed Yes No Yes Has offloadiing in place as prescribed No No No Experienced any changes in pain level or No No No management Left Footwear Regular Shoe Right Footwear Regular Shoe Pain Scale: 0-10 Numeric Is Patient Pain Free? No Yes Yes LLE -Description Aching -Intensity 6 -Duration (hours) Acute -Pain Behavior Withdrawal from Touch -Pain Aggravating Factors Exercise/ Activity -Alleviating Factors/Interventions Medication -Effectiveness of Alleviating Factor/ Moderately Intervention effective WC - Nurse 1 - General Ulcer Measurement Start: 09/14/24 09:58 Freq: Status: Active Protocol: Activity Type Activity Date Activity User E-sign Co-sign Detail Recorded Client Recorded Date Recorded By Document 09/14/24 09:59 RB [id number] 09/14/24 10:16 RB Document 09/21/24 10:02 RB [id number] 09/21/24 10:04 RB Document 09/28/24 12:03 RB [id number] 09/28/24 12:05 RB 09/14/24 09/21/24 09/28/24 09:59 10:02 12:03 Wound Center Nurse 1 #18 Left medial LE cluster -Combined with other wound No No No -Current Size (cm) - Length 17 16 8.5 -Current Size (cm) - Width 9 8.5 15 -Current Size (cm) - Depth 0.1 0.1 0.1 -Total Square Cm 153 136.0 127.5 -Tunneling No No No -Undermining/Tunneling No No No -Circular Undermining No No No -Exudate Amt Large Large Large -Exudate Type Serosanguineous Serosanguineous Serosanguineous -Wound Margin Distinct, Distinct, Distinct, Outline Outline Outline Attached Attached Attached -Granulation Amt Large (67-100%) Large (67-100%) Large (67-100%) -Granulation Quality [place],Red [place],Red -Slough/Fibrin Yes Yes Yes -Necrosis Amt Medium (34-66%) Medium (34-66%) Medium (34-66%) -Necrotic Tissue Type Adherent Slough Adherent Slough Adherent Slough -Structure Exposed N/A N/A N/A -Texture (Marie-wound Skin Appearance) Assessed, Assessed Assessed, Localized Edema Scarring -Moisture (Marie-wound Skin Appearance) Assessed,Dry/ Maceration Assessed Scaly -Color (Marie-wound Skin Appearance) Assessed Assessed Assessed -Temperature (Marie-wound Skin No Abnormality No Abnormality No Abnormality Appearance) (Pt Warm) (Pt Warm) (Pt Warm) -Tenderness on Palpation (Marie-wound No No No Skin Appearance) -Ulcer Cleansing Wound Cleanser Wound Cleanser Wound Cleanser -Foul Odor after Cleansing No No No -Anesthetic Used 5% Lidocaine 5% Lidocaine 5% Lidocaine Gel Gel Gel Lower Limb Edema Present Yes Yes Yes Right Calf (cm) 48 45.7 42 Right Ankle (cm) 30.5 28.5 29.2 Left Calf (cm) 44.5 43.5 44.5 Left Ankle (cm) 30.5 29.2 28.5 WC - Nurse 2 - General Ulcer CM Notes Start: 09/14/24 09:58 Freq: Status: Active Protocol: Activity Type Activity Date Activity User E-sign Co-sign Detail Recorded Client Recorded Date Recorded By Document 09/14/24 10:48 [id number] 09/14/24 11:02 Document 09/21/24 10:20 [id number] 09/21/24 10:31 Document 09/28/24 12:20 [id number] 09/28/24 12:32 09/14/24 09/21/24 09/28/24 10:48 10:20 12:20 Wound Center Nurse 2 #18 Left medial LE cluster -Time 10:50 10:20 12:23 -Correct Patient Yes Yes Yes -Correct Side, Site, Position Yes Yes Yes -Correct Procedure Yes Yes Yes -Procedure Performed Yes Yes Yes -Type of Procedure Debridement Debridement Debridement -Clinical Debridement Subcutaneous Subcutaneous Subcutaneous -Tissue Removed Subcutaneous Subcutaneous Subcutaneous -Post Debridement (cm) - Length 8.8 8.6 8.4 -Post Debridement (cm) - Width 13.8 13.8 13.1 -Post Debridement (cm) - Depth 0.1 0.1 0.1 -Total Square (Post) (cm) 121.44 118.68 110.04 -Area of Debridement (cm) - Length 8.8 8.6 8.4 -Area of Debridement (cm) - Width 13.8 13.8 13.1 -Total Square (Area) (cm) 121.44 118.68 110.04 -Tunneling No No No -Undermining/Tunneling No No No -Circular Undermining No No No -Wound/Ulcer Outcome Not Healed Not Healed Not Healed -Ulcer Cleansing Rinsed/ Rinsed/ Rinsed/ Irrigated with Irrigated with Irrigated with Saline Saline Saline -Foul Odor after Cleansing No No No -Bioengineered Tissue No No No -Bleeding Controlled with Pressure Pressure Pressure -Treatment Response Procedure Procedure Procedure Tolerated Well Tolerated Well Tolerated Well -Debridement - Subq, 1st 20sq cm Yes Yes Yes -Debridement, SubQ, ea addt'l 20sq cm 6 5 5 or part thereof Pain Scale: 0-10 Numeric Is Patient Pain Free? Yes Yes Yes - Nurse 3 - General Ulcer D/C NN Start: 09/14/24 09:58 Freq: Status: Active Protocol: Activity Type Activity Date Activity User E-sign Co-sign Detail Recorded Client Recorded Date Recorded By Document 09/14/24 11:17 KW [id number] 09/14/24 11:18 KW Document 09/21/24 11:00 RB [id number] 09/21/24 11:00 RB Document 09/28/24 12:47 KW [id number] 09/28/24 12:49 KW 09/14/24 09/21/24 09/28/24 11:17 11:00 12:47 Wound Care Center Nurse 3 #18 Left medial LE cluster -Ulcer Cleansing Rinsed/ Irrigated with Saline -Primary Dressing Applied Aquacel Extra Aquacel Extra Aquacel Extra -Other Dressing ABD -Primary Dressing Covered/Secured with Dry Gauze & Dry Gauze & Dry Gauze & Roll Gauze, Roll Gauze, Roll Gauze, Secured with Secured with Secured with Tape Tape Tape -Aquacel Extra 1 2 2 wili -Tubular Bandage Single Layer -Size of Tubigrip Used Size F -Size F ($) 2 Right -Compression Wrap Marcio Wrap -Tubular Bandage Single Layer -Size of Tubigrip Used Size E -Size E ($) 1 Left -Compression Wrap Marcio Wrap Marcio Wrap -Tubular Bandage Single Layer -Size of Tubigrip Used Size F Size E -Size E ($) 1 Treatment Response Procedure Tolerated Well Pain Scale: 0-10 Numeric Is Patient Pain Free? Yes Yes Yes WC - Visit Discharge Discharge Condition Stable Stable Stable Ambulatory Status Walker Ambulatory, Ambulatory, Walker Walker Transportation Private Auto Medication Reconcilliation completed & No No No provided to patient/care provider Clinical Summary of Care Provided Yes Yes Yes Assessment/Plan Assessment/Plan (1) Lymphedema: CODE(S): I89.0 - Lymphedema, not elsewhere classified (2) Hypertension: CODE(S): I10 - Essential (primary) hypertension QUALIFIERS: Hypertension type: primary hypertension Qualified Code(s): I10 - Essential (primary) hypertension (3) Hyperlipidemia: CODE(S): E78.5 - Hyperlipidemia, unspecified QUALIFIERS: Hyperlipidemia type: mixed hyperlipidemia Qualified Code(s): E78.2 - Mixed hyperlipidemia (4) History of DVT (deep vein thrombosis): CODE(S): Z86.718 - Personal history of other venous thrombosis and embolism (5) Venous insufficiency (chronic) (peripheral): CODE(S): I87.2 - Venous insufficiency (chronic) (peripheral) (6) Venous ulcer of left lower extremity with varicose veins: CODE(S): I83.029 - Varicose veins of left lower extremity with ulcer of unspecified site (7) Edema: CODE(S): R60.9 - Edema, unspecified QUALIFIERS: Edema type: unspecified Qualified Code(s): R60.9 - Edema, unspecified PLAN: Plan Evaluation and debridement of left medial LE ulcer performed today in clinic as annotated above. At home wound-care instructions: Will have him continue Calcium Alginate or Fibracol and ABD changed daily. Use superabsorber if drainage is heavy. Continue compression with F tubigrips b/l. Due to the delayed progress in wound healing of his venous ulcers, we discussed applying for advanced wound healing product for healing his ulcer. Due to the size of his ulcer, Theraskin application approval was requested from his insurance as it is medically necessary for salvaging his limb and healing his ulcer. He underwent 2 applications of Theraskin to this ulcer. Since application of Theraskin he has had much improvement in epithelialization of his ulcer even though the overall size is not significantly changed there is progress. Off-loading: The patient was instructed to avoid pressure and friction on the affected areas. Reposition every 2 hours at minimum. Avoid prolonged standing and/or dangling of legs. When seated, feet should be elevated at chest level. Frequent ambulation is encouraged. Encouraged lymphedema pump use. Diet: Patient encouraged to increase protein intake while taking caution to avoid high carbohydrate and/or sugar intake. Labs/cultures/imaging: Wound culture showed Pseudomonas, Escherichia hermannii, Raoultella planticola, Vancomycin Resist. E. faecalis, Alcaligenes faecalis ssp faeca, Staphylococcus cohnii urealyti and anaerobic bacteria on 06/15/24 and he completed on Levofloxacin and Augmentin. Wound culture taken today on right lateral ulcer. Follow-up: Return in 1 week for wound care follow up and have dressing changed by home health Tuesday and Tuesday. Return sooner or report to the emergency room should symptoms worsen, or new symptoms arise. Note: [employer] speech recognition sales secretary software was used to create portions of this document. Sound-alike and misspelled words, as well as other sales secretary errors may be contained in the documentation.
[2024-10-05 10:28] VITALS: BP 127/65; PULSE 63; RESP 18; TEMP 35.4
--- NOTE | 2024-10-05 14:51 | PCM.WC.PN ---
History of Present Illness Date of Service: 10/05/24 Chief Complaint: venous ulcers of left lower extremity History of Wound: Mauricio is a 69 yo gentleman who is here today for evaluation of ulcers to to his bilateral lower legs. He has been treated multiple times in the past at the wound healing center for similar ulcers. The left LE ulcer started after he developed increased swelling and blisters of left leg in October and the right leg started sometime at the end of October. He was seen at PCP's office a culture was taken and it was resistant to several antibiotics. He was treated initially with Levaquin but had myalgias and then was treated with doxycycline which he finished 2 days ago. He denies improvement and is having swelling to his left calf and thigh. He has been having swelling to both lower extremities for many years and it has worsened over the last few months. He has not been compliant with compression. He has had increased pain especially in the left leg. He has clear yellow drainage and redness without odor or warmth. He is anti-coagulated on coumadin. He has been washing with Dial soap and witch ifrah. He had been using Collagen at times and using Calcium Alginate and covering with ABD pads during October. He was treated with 3M compression and Aquacel Ag. He was referred to the wound center for ongoing treatment. His ulcers have moderate to heavy drainage. He was in the hospital from 11/30/22 until 12/09/22 for treatment of cellulitis and edema. He underwent treatment with Vancomycin and IV lasix and compression. Discharged on 12/09/22. He returned to his assisted living apartment on Tuesday12/21/22. Subjective Subjective Mauricio is a 69-year-old male with longstanding history of chronic venous ulceration to the left lower extremity. Wound culture from 06/15/24 were positive for multiple bacteria and he completed antibiotic treatment. He has had decreased drainage this week. His edema is a little worse this week and he has been using ABDs and Aquacel Extra. There has been improvement in his left medial ulcer overall this week. He is using MARCIO and size F Tubigrips for compression. 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 He continues to use his lymphedema pumps but continues to have pain with use of these pumps. Right lateral ulcer is larger and culture was positive for several bacteria and he is starting antibiotic treatment today. Objective Data Objective Data Vital Signs: Vital Signs Temp Pulse Resp BP 95.8 F L 63 18 127/65 H 10/05/24 10:28 10/05/24 10:28 10/05/24 10:28 10/05/24 10:28 Lab / Micro Data Micro: Microbiology 09/28/24 12:28 Wound - Leg, Right Gram Stain - Final 09/28/24 12:28 Wound - Leg, Right Wound Culture - Final Raoultella planticola Staphylococcus haemolyticus Corynebacterium striatum Staphylococcus epidermidis Morganella morganii sp sibonii 09/28/24 12:28 Wound - Leg, Right Anaerobic Culture - Final No anaerobic bacteria isolated. Physical Exam Const alert, oriented x3 and no apparent distress General Appearance: cooperative and comfortable HEENT normocephalic and head/scalp atraumatic Lymph Lymphatic: lymphedema moderate Resp normal respiratory effort Effort and Inspection: able to speak in complete sentences Cardio regular rate and regular rhythm Extremity General Extremity: edema bilateral lower extremity Details: severe Skin General Skin Exam: venous stasis and dermatitis Wounds: wounds noted Wound Narrative: as in clinical panel, no cellulitis or odor, there is decreased depth, + granulation tissue right lateral ulcer with good granulation and minimal slough Psych mental status grossly normal, thought process normal, cooperative and affect normal Debridement Note Debridement Note Wound debrided: left medial LE ulcer Laterality: Left Type of Debridement: Excisional debridement Anesthesia Used: 4% Lidocaine Solution, 5% Lidocaine Gel and Cetacaine Depth: Down to and including healthy tissue and in the subcutaneous layer Percentage of wound debrided: 100 Instrument Used: - (Misonix ultrasonic debridement) Tissue Removed: Yellow slough, devitalized tissue Severity: Fat Layer Exposed Amount of bleeding with debridement: Mild Bleeding Controlled with: Compression and gauze Patient tolerated procedure: Patient tolerated procedure well Post-Debridement Measurements and Additional Note: Post-Debridement Measurements/Treatment WC - Nurse 1 - General Ulcer Assessment Start: 09/14/24 09:58 Freq: Status: Active Protocol: ONDINA Activity Type Activity Date Activity User E-sign Co-sign Detail Recorded Client Recorded Date Recorded By Document 09/14/24 09:59 RB [id number] 09/14/24 10:16 RB Document 09/21/24 10:02 RB [id number] 09/21/24 10:04 RB Document 09/28/24 12:03 RB [id number] 09/28/24 12:05 RB Document 10/05/24 10:28 RB [id number] 10/05/24 10:31 RB 09/14/24 09/21/24 09/28/24 09:59 10:02 12:03 WC - Today's Visit Information Type of service Follow-up Visit Follow-up Visit Follow-up Visit (Physician/MANAGER OF INTERNAL AUDIT (Physician/MANAGER OF INTERNAL AUDIT (Physician/MANAGER OF INTERNAL AUDIT ) ) ) Arrival Mode Ambulatory Ambulatory, Ambulatory, Walker Walker Transfer Assistance None None None Patient Identification Verified (Name & Yes Yes Yes ) Patient Requires Transmission-Based No No No Precautions Vital Signs Temperature (97.8 F-99.1 F) 96 F L 96.6 F L 96.2 F L Temperature Source Temporal Temporal Temporal Pulse Rate (60-100) 71 74 70 Pulse Location Monitor Monitor Monitor Respiratory Rate (12-18) 18 18 18 Respiratory rate source Observation Observation Observation Blood Pressure (90/60-120/80) 141/69 H 127/74 H 135/76 H Blood Pressure Mean (mm Hg) 93 91 95 Source Monitor Monitor Monitor Position Semi-Fowlers Semi-Fowlers Semi-Fowlers Blood Pressure Location Left Arm Left Arm Left Arm History Since Last Visit- (Skip if this is Patient's initial visit) Have you changed medications since your No No No last visit? Any new allergies or adverse reactions No No No Had a fall/change in ADL's that may No No No increase risk of falls Signs or symptoms of abuse and/or No No No neglect since last visit Have you been in the hospital since your No No No last visit? Has dressing in place as prescribed Yes Yes Yes Has compression in place as prescribed Yes No Yes Has offloadiing in place as prescribed No No No Experienced any changes in pain level or No No No management Left Footwear Regular Shoe Right Footwear Regular Shoe Pain Scale: 0-10 Numeric Is Patient Pain Free? No Yes Yes LLE -Description Aching -Intensity 6 -Duration (hours) Acute -Pain Behavior Withdrawal from Touch -Pain Aggravating Factors Exercise/ Activity -Alleviating Factors/Interventions Medication -Effectiveness of Alleviating Factor/ Moderately Intervention effective 10/05/24 10:28 WC - Today's Visit Information Type of service Follow-up Visit (Physician/MANAGER OF INTERNAL AUDIT ) Arrival Mode Ambulatory, Walker Transfer Assistance None Patient Identification Verified (Name & Yes ) Patient Requires Transmission-Based No Precautions Vital Signs Temperature (97.8 F-99.1 F) 95.8 F L Temperature Source Temporal Pulse Rate (60-100) 63 Pulse Location Monitor Respiratory Rate (12-18) 18 Respiratory rate source Observation Blood Pressure (90/60-120/80) 127/65 H Blood Pressure Mean (mm Hg) 85 Source Monitor Position Semi-Fowlers Blood Pressure Location Left Arm History Since Last Visit- (Skip if this is Patient's initial visit) Have you changed medications since your No last visit? Any new allergies or adverse reactions No Had a fall/change in ADL's that may No increase risk of falls Signs or symptoms of abuse and/or No neglect since last visit Have you been in the hospital since your No last visit? Has dressing in place as prescribed Yes Has compression in place as prescribed Yes Has offloadiing in place as prescribed No Experienced any changes in pain level or No management Left Footwear Right Footwear Pain Scale: 0-10 Numeric Is Patient Pain Free? No LLE -Description Cramping -Intensity 7 -Duration (hours) Acute -Pain Behavior Guarding, Irritability, Withdrawal from Touch -Pain Aggravating Factors Exercise/ Activity -Alleviating Factors/Interventions Medication -Effectiveness of Alleviating Factor/ Minimally Intervention effective WC - Nurse 1 - General Ulcer Measurement Start: 09/14/24 09:58 Freq: Status: Active Protocol: Activity Type Activity Date Activity User E-sign Co-sign Detail Recorded Client Recorded Date Recorded By Document 09/14/24 09:59 RB [id number] 09/14/24 10:16 RB Document 09/21/24 10:02 RB [id number] 09/21/24 10:04 RB Document 09/28/24 12:03 RB [id number] 09/28/24 12:05 RB Document 10/05/24 10:28 RB [id number] 10/05/24 10:31 RB 09/14/24 09/21/24 09/28/24 09:59 10:02 12:03 Wound Center Nurse 1 #18 Left medial LE cluster -Combined with other wound No No No -Current Size (cm) - Length 17 16 8.5 -Current Size (cm) - Width 9 8.5 15 -Current Size (cm) - Depth 0.1 0.1 0.1 -Total Square Cm 153 136.0 127.5 -Tunneling No No No -Undermining/Tunneling No No No -Circular Undermining No No No -Exudate Amt Large Large Large -Exudate Type Serosanguineous Serosanguineous Serosanguineous -Wound Margin Distinct, Distinct, Distinct, Outline Outline Outline Attached Attached Attached -Granulation Amt Large (67-100%) Large (67-100%) Large (67-100%) -Granulation Quality Winnett Winnett,Red Winnett,Red -Slough/Fibrin Yes Yes Yes -Necrosis Amt Medium (34-66%) Medium (34-66%) Medium (34-66%) -Necrotic Tissue Type Adherent Slough Adherent Slough Adherent Slough -Structure Exposed N/A N/A N/A -Texture (Marie-wound Skin Appearance) Assessed, Assessed Assessed, Localized Edema Scarring -Moisture (Marie-wound Skin Appearance) Assessed,Dry/ Maceration Assessed Scaly -Color (Marie-wound Skin Appearance) Assessed Assessed Assessed -Temperature (Marie-wound Skin No Abnormality No Abnormality No Abnormality Appearance) (Pt Warm) (Pt Warm) (Pt Warm) -Tenderness on Palpation (Marie-wound No No No Skin Appearance) -Ulcer Cleansing Wound Cleanser Wound Cleanser Wound Cleanser -Foul Odor after Cleansing No No No -Anesthetic Used 5% Lidocaine 5% Lidocaine 5% Lidocaine Gel Gel Gel Lower Limb Edema Present Yes Yes Yes Right Calf (cm) 48 45.7 42 Right Ankle (cm) 30.5 28.5 29.2 Left Calf (cm) 44.5 43.5 44.5 Left Ankle (cm) 30.5 29.2 28.5 10/05/24 10:28 Wound Center Nurse 1 #18 Left medial LE cluster -Combined with other wound No -Current Size (cm) - Length 16.5 -Current Size (cm) - Width 7.8 -Current Size (cm) - Depth 0.1 -Total Square Cm 128.70 -Tunneling No -Undermining/Tunneling No -Circular Undermining No -Exudate Amt Medium -Exudate Type Serosanguineous -Wound Margin Distinct, Outline Attached -Granulation Amt Medium (34-66%) -Granulation Quality Winnett -Slough/Fibrin Yes -Necrosis Amt Medium (34-66%) -Necrotic Tissue Type Adherent Slough -Structure Exposed N/A -Texture (Marie-wound Skin Appearance) Assessed, Scarring -Moisture (Marie-wound Skin Appearance) Assessed -Color (Marie-wound Skin Appearance) Assessed -Temperature (Marie-wound Skin No Abnormality Appearance) (Pt Warm) -Tenderness on Palpation (Marie-wound No Skin Appearance) -Ulcer Cleansing Wound Cleanser -Foul Odor after Cleansing No -Anesthetic Used 5% Lidocaine Gel Lower Limb Edema Present Yes Right Calf (cm) 48 Right Ankle (cm) 30.5 Left Calf (cm) 45 Left Ankle (cm) 31 WC - Nurse 2 - General Ulcer CM Notes Start: 09/14/24 09:58 Freq: Status: Active Protocol: Activity Type Activity Date Activity User E-sign Co-sign Detail Recorded Client Recorded Date Recorded By Document 09/14/24 10:48 GM [id number] 09/14/24 11:02 GM Document 09/21/24 10:20 GM [id number] 09/21/24 10:31 GM Document 09/28/24 12:20 GM [id number] 09/28/24 12:32 GM Document 10/05/24 10:59 GM [id number] 10/05/24 11:14 GM Edit Result 10/05/24 10:59 GM (1) [id number] 10/05/24 12:37 GM (1) #23 R Lat Leg - Debridement, Open, ea addt'l 20sq cm => 1 or part thereof #18 Left medial LE cluster - Debridement, SubQ, ea addt'l 20sq cm => 5 or part thereof 09/14/24 09/21/24 09/28/24 10:48 10:20 12:20 Wound Center Nurse 2 #23 R Lat Leg -Time -Correct Patient -Correct Side, Site, Position -Correct Procedure -Procedure Performed -Type of Procedure -Clinical Debridement -Tissue Removed -Post Debridement (cm) - Length -Post Debridement (cm) - Width -Post Debridement (cm) - Depth -Total Square (Post) (cm) -Area of Debridement (cm) - Length -Area of Debridement (cm) - Width -Total Square (Area) (cm) -Tunneling -Undermining/Tunneling -Circular Undermining -Wound/Ulcer Outcome -Ulcer Cleansing -Foul Odor after Cleansing -Bioengineered Tissue -Bleeding Controlled with -Debridement - Open, 1st 20sq cm -Debridement, Open, ea addt'l 20sq cm or part thereof #22 R Medial Leg -Time -Correct Patient -Correct Side, Site, Position -Correct Procedure -Procedure Performed -Post Debridement (cm) - Length -Post Debridement (cm) - Width -Post Debridement (cm) - Depth -Total Square (Post) (cm) -Tunneling -Undermining/Tunneling -Circular Undermining -Wound/Ulcer Outcome -Ulcer Cleansing -Foul Odor after Cleansing -Bioengineered Tissue -Bleeding Controlled with #18 Left medial LE cluster -Time 10:50 10:20 12:23 -Correct Patient Yes Yes Yes -Correct Side, Site, Position Yes Yes Yes -Correct Procedure Yes Yes Yes -Procedure Performed Yes Yes Yes -Type of Procedure Debridement Debridement Debridement -Clinical Debridement Subcutaneous Subcutaneous Subcutaneous -Tissue Removed Subcutaneous Subcutaneous Subcutaneous -Post Debridement (cm) - Length 8.8 8.6 8.4 -Post Debridement (cm) - Width 13.8 13.8 13.1 -Post Debridement (cm) - Depth 0.1 0.1 0.1 -Total Square (Post) (cm) 121.44 118.68 110.04 -Area of Debridement (cm) - Length 8.8 8.6 8.4 -Area of Debridement (cm) - Width 13.8 13.8 13.1 -Total Square (Area) (cm) 121.44 118.68 110.04 -Tunneling No No No -Undermining/Tunneling No No No -Circular Undermining No No No -Wound/Ulcer Outcome Not Healed Not Healed Not Healed -Ulcer Cleansing Rinsed/ Rinsed/ Rinsed/ Irrigated with Irrigated with Irrigated with Saline Saline Saline -Foul Odor after Cleansing No No No -Bioengineered Tissue No No No -Bleeding Controlled with Pressure Pressure Pressure -Treatment Response Procedure Procedure Procedure Tolerated Well Tolerated Well Tolerated Well -Debridement - Subq, 1st 20sq cm Yes Yes Yes -Debridement, SubQ, ea addt'l 20sq cm 6 5 5 or part thereof Pain Scale: 0-10 Numeric Is Patient Pain Free? Yes Yes Yes 10/05/24 10:59 Wound Center Nurse 2 #23 R Lat Leg -Time 11:12 -Correct Patient Yes -Correct Side, Site, Position Yes -Correct Procedure Yes -Procedure Performed Yes -Type of Procedure Debridement -Clinical Debridement Epidermis / Dermis -Tissue Removed Epidermis -Post Debridement (cm) - Length 5.5 -Post Debridement (cm) - Width 4.0 -Post Debridement (cm) - Depth 0.1 -Total Square (Post) (cm) 22.00 -Area of Debridement (cm) - Length 5.5 -Area of Debridement (cm) - Width 4.0 -Total Square (Area) (cm) 22.00 -Tunneling No -Undermining/Tunneling No -Circular Undermining No -Wound/Ulcer Outcome Not Healed -Ulcer Cleansing Rinsed/ Irrigated with Saline -Foul Odor after Cleansing No -Bioengineered Tissue No -Bleeding Controlled with NA -Debridement - Open, 1st 20sq cm Yes -Debridement, Open, ea addt'l 20sq cm 1 or part thereof #22 R Medial Leg -Time 11:11 -Correct Patient Yes -Correct Side, Site, Position Yes -Correct Procedure No -Procedure Performed No -Post Debridement (cm) - Length 2.2 -Post Debridement (cm) - Width 1.7 -Post Debridement (cm) - Depth 0.1 -Total Square (Post) (cm) 3.74 -Tunneling No -Undermining/Tunneling No -Circular Undermining No -Wound/Ulcer Outcome Not Healed -Ulcer Cleansing Rinsed/ Irrigated with Saline -Foul Odor after Cleansing No -Bioengineered Tissue No -Bleeding Controlled with NA #18 Left medial LE cluster -Time 11:01 -Correct Patient Yes -Correct Side, Site, Position Yes -Correct Procedure Yes -Procedure Performed Yes -Type of Procedure Debridement -Clinical Debridement Subcutaneous -Tissue Removed Subcutaneous -Post Debridement (cm) - Length 8.2 -Post Debridement (cm) - Width 13.5 -Post Debridement (cm) - Depth 0.1 -Total Square (Post) (cm) 110.70 -Area of Debridement (cm) - Length 8.2 -Area of Debridement (cm) - Width 13.5 -Total Square (Area) (cm) 110.70 -Tunneling No -Undermining/Tunneling No -Circular Undermining No -Wound/Ulcer Outcome Not Healed -Ulcer Cleansing Rinsed/ Irrigated with Saline -Foul Odor after Cleansing No -Bioengineered Tissue No -Bleeding Controlled with Pressure -Treatment Response Procedure Tolerated Well -Debridement - Subq, 1st 20sq cm Yes -Debridement, SubQ, ea addt'l 20sq cm 5 or part thereof Pain Scale: 0-10 Numeric Is Patient Pain Free? Yes - Nurse 3 - General Ulcer D/C NN Start: 09/14/24 09:58 Freq: Status: Active Protocol: Activity Type Activity Date Activity User E-sign Co-sign Detail Recorded Client Recorded Date Recorded By Document 09/14/24 11:17 KW [id number] 09/14/24 11:18 KW Document 09/21/24 11:00 RB [id number] 09/21/24 11:00 RB Document 09/28/24 12:47 KW [id number] 09/28/24 12:49 KW Document 10/05/24 12:31 RB WOUND CENTER 10/05/24 12:33 RB 09/14/24 09/21/24 09/28/24 11:17 11:00 12:47 Wound Care Center Nurse 3 #23 R Lat Leg -Ulcer Cleansing -Primary Dressing Applied -Other Dressing -Primary Dressing Covered/Secured with -Aquacel AG 4x4 #22 R Medial Leg -Ulcer Cleansing -Primary Dressing Applied -Primary Dressing Covered/Secured with -Aquacel Extra #18 Left medial LE cluster -Ulcer Cleansing Rinsed/ Irrigated with Saline -Primary Dressing Applied Aquacel Extra Aquacel Extra Aquacel Extra -Other Dressing ABD -Primary Dressing Covered/Secured with Dry Gauze & Dry Gauze & Dry Gauze & Roll Gauze, Roll Gauze, Roll Gauze, Secured with Secured with Secured with Tape Tape Tape -Aquacel Extra 1 2 2 wili -Tubular Bandage Single Layer -Size of Tubigrip Used Size F -Size F ($) 2 -Other Right -Compression Wrap Marcio Wrap -Tubular Bandage Single Layer -Size of Tubigrip Used Size E -Size E ($) 1 Left -Compression Wrap Marcio Wrap Marcio Wrap -Tubular Bandage Single Layer -Size of Tubigrip Used Size F Size E -Size E ($) 1 Treatment Response Procedure Tolerated Well Pain Scale: 0-10 Numeric Is Patient Pain Free? Yes Yes Yes - Visit Discharge Discharge Condition Stable Stable Stable Ambulatory Status Walker Ambulatory, Ambulatory, Walker Walker Transportation Private Auto Medication Reconcilliation completed & No No No provided to patient/care provider Clinical Summary of Care Provided Yes Yes Yes 10/05/24 12:31 Wound Care Center Nurse 3 #23 R Lat Leg -Ulcer Cleansing Rinsed/ Irrigated with Saline -Primary Dressing Applied Aquacel AG 4x4 -Other Dressing ABD -Primary Dressing Covered/Secured with Dry Gauze & Roll Gauze, Secured with Tape -Aquacel AG 4x4 1 #22 R Medial Leg -Ulcer Cleansing Rinsed/ Irrigated with Saline -Primary Dressing Applied Aquacel Extra -Primary Dressing Covered/Secured with Dry Gauze,Dry Gauze & Roll Gauze,Secured with Tape -Aquacel Extra 1 #18 Left medial LE cluster -Ulcer Cleansing Rinsed/ Irrigated with Saline -Primary Dressing Applied Aquacel Extra -Other Dressing ABD -Primary Dressing Covered/Secured with Dry Gauze,Dry Gauze & Roll Gauze,Secured with Tape -Aquacel Extra 1 wili -Tubular Bandage Single Layer -Size of Tubigrip Used Size F -Size F ($) 2 -Other marcio Right -Compression Wrap -Tubular Bandage -Size of Tubigrip Used -Size E ($) Left -Compression Wrap -Tubular Bandage -Size of Tubigrip Used -Size E ($) Treatment Response Procedure Tolerated Well Pain Scale: 0-10 Numeric Is Patient Pain Free? Yes WC - Visit Discharge Discharge Condition Stable Ambulatory Status Ambulatory, Walker Transportation Private Auto Medication Reconcilliation completed & No provided to patient/care provider Clinical Summary of Care Provided Yes Additional Wound Wound debrided: right lateral LE ulcer Laterality: Right Type of Debridement: Excisional debridement Anesthesia Used: 4% Lidocaine Solution, 5% Lidocaine Gel and Cetacaine Depth: Down to and including healthy tissue and in the subcutaneous layer Instrument Used: - (Misonix ultrasonic debridement) Tissue Removed: Yellow slough, devitalized tissue Severity: Fat Layer Exposed Amount of bleeding with debridement: Mild Bleeding Controlled with: Compression and gauze Patient tolerated procedure: Patient tolerated procedure well Assessment/Plan Assessment/Plan (1) Lymphedema: CODE(S): I89.0 - Lymphedema, not elsewhere classified (2) Hypertension: CODE(S): I10 - Essential (primary) hypertension QUALIFIERS: Hypertension type: primary hypertension Qualified Code(s): I10 - Essential (primary) hypertension (3) Hyperlipidemia: CODE(S): E78.5 - Hyperlipidemia, unspecified QUALIFIERS: Hyperlipidemia type: mixed hyperlipidemia Qualified Code(s): E78.2 - Mixed hyperlipidemia (4) History of DVT (deep vein thrombosis): CODE(S): Z86.718 - Personal history of other venous thrombosis and embolism (5) Venous insufficiency (chronic) (peripheral): CODE(S): I87.2 - Venous insufficiency (chronic) (peripheral) (6) Venous ulcer of left lower extremity with varicose veins: CODE(S): I83.029 - Varicose veins of left lower extremity with ulcer of unspecified site (7) Edema: CODE(S): R60.9 - Edema, unspecified QUALIFIERS: Edema type: unspecified Qualified Code(s): R60.9 - Edema, unspecified PLAN: Plan Evaluation and debridement of left medial LE ulcer performed today in clinic as annotated above. At home wound-care instructions: Will have him continue Calcium Alginate changed daily to left medial LE. Right lateral LE will have him use Aquacel Ag changed daily. Continue compression with F tubigrips b/l. Due to the delayed progress in wound healing of his venous ulcers, we discussed applying for advanced wound healing product for healing his ulcer. Due to the size of his ulcer, Theraskin application approval was requested from his insurance as it is medically necessary for salvaging his limb and healing his ulcer. He underwent 2 applications of Theraskin to this ulcer. Since application of Theraskin he has had much improvement in epithelialization of his ulcer even though the overall size is not significantly changed there is progress. Off-loading: The patient was instructed to avoid pressure and friction on the affected areas. Reposition every 2 hours at minimum. Avoid prolonged standing and/or dangling of legs. When seated, feet should be elevated at chest level. Frequent ambulation is encouraged. Encouraged lymphedema pump use. Diet: Patient encouraged to increase protein intake while taking caution to avoid high carbohydrate and/or sugar intake. Labs/cultures/imaging: Wound culture showed Pseudomonas, Escherichia hermannii, Raoultella planticola, Vancomycin Resist. E. faecalis, Alcaligenes faecalis ssp faeca, Staphylococcus cohnii urealyti and anaerobic bacteria on 06/15/24 and he completed on Levofloxacin and Augmentin. Wound culture taken today on right lateral ulcer which showed Raoultella planticola, Staph hemolyticus, staph epidermidis and morganella morganii but no anaeroobic bacteria, Levofloxacin and doxycyline were prescribed based on culture results. Follow-up: Return in 1 week for wound care follow up and have dressing changed by home health Tuesday and Tuesday. Return sooner or report to the emergency room should symptoms worsen, or new symptoms arise. Note: [employer] speech recognition clinical research monitor software was used to create portions of this document. Sound-alike and misspelled words, as well as other clinical research monitor errors may be contained in the documentation.
== END 2024-10-09 23:59 | disposition home or self-care (01) ==
LOC: WC 10:00
PROVIDERS: PCP Family Medicine; Referring Provider Family Medicine; Visit Provider Family Medicine
DX: I89.0 Lymphedema, not elsewhere classified (principal); I83.028 Varicose veins of left lower extremity with ulcer other part of lower leg; L97.822 Non-pressure chronic ulcer of other part of left lower leg with fat layer exposed; I10 Essential (primary) hypertension; I87.2 Venous insufficiency (chronic) (peripheral); E78.2 Mixed hyperlipidemia; R60.9 Edema, unspecified; Z86.718 Personal history of other venous thrombosis and embolism; M79.605 Pain in left leg; M79.10 Myalgia, unspecified site
CPT/HCPCS: 11042; 11045; 87070; 87075; 87077; 87186; 87205; 97597; 97598

== ENCOUNTER 2024-10-24 15:15 | Outpatient (RCR) | payer MEDICARE, OTHER, SELFPAY ==
[2024-10-24 15:38] LABS: Absolute Neutrophil Count 3.9 X10^3/uL (2.0-7.7); Basophil# 0.03 X10^3/uL; Basophil% 0.5 % (0-1); Eosinophil# 0.06 X10^3/uL; Hematocrit 42.9 % (40-54); Hemoglobin 13.9 g/dL (13.0-16.5); Lymphocyte % 23.6 % (19-41); Mean Corp Hgb Conc 32.4 g/dL (32-36); Mean Corpuscular Hgb 31.6 pg (27.0-32.0); Mean Corpuscular Volume 97.5 fL (80-94); Mean Platelet Vol. 9.6 fl (6.2-12.0); Monocyte# 0.57 X10^3/uL; Monocyte% 9.6 % (0-10); NRBC Flagged by Analyzer 0 % (0-5); Neutrophil # 3.85 X10^3/uL (2.7-7.7); Neutrophil % 65.1 % (47-70); Platelet Count 269 K/mm3 (150-450); RBC Distribution Width CV 14.2 % (11.6-14.6); RBC Distribution Width SD 51.7 fl (35.1-43.9); White Blood Count 5.9 K/mm3 (4.4-11.0)
[2024-10-24 16:00] LABS: ALB/GLOB Ratio 0.8 RATIO (0.9-2.4); AST(SGOT) 17 U/L (15-37); Alanine Aminotransfer ALT/SGPT 17 U/L (16-61); Albumin, Serum 3.3 g/dL (3.2-5.0); Alkaline Phosphatase 133 U/L (45-117); Anion Gap 8 (5-15); BUN 18 mg/dL (7-18); BUN/Creat Ratio 23.2 RATIO (10-20); Calcium,Total 8.5 mg/dL (8.5-10.1); Chloride 103 mmol/L (98-107); Creatinine, Serum 0.78 mg/dL (0.70-1.30); EST Glomerular Filtration Rate 106 mL/min (>60); Est Glom Filt Rate - Afr Amer 129 mL/min (>60); Globulin 4.1 g/dL (2.2-4.2); Glucose 106 mg/dL (74-106); Protein, Total 7.4 g/dL (6.4-8.2); Sodium Level 139 mmol/L (136-145)
[2024-10-24 16:02] LABS: Vitamin D,25 Hydroxy 19.1 ng/mL
[2024-10-24 17:21] LABS: Hemoglobin A1c 5.5 % (3.8-5.6)
== END 2024-10-24 18:00 | disposition home or self-care (01) ==
LOC: HHLAB 15:15
PROVIDERS: PCP Family Medicine; Referring Provider Family Medicine; Visit Provider Family Medicine
DX: E55.9 Vitamin D deficiency, unspecified (principal); R73.01 Impaired fasting glucose; Z51.81 Encounter for therapeutic drug level monitoring; I10 Essential (primary) hypertension; I83.028 Varicose veins of left lower extremity with ulcer other part of lower leg
CPT/HCPCS: 80053; 82306; 83036; 85025

== ENCOUNTER 2024-11-09 09:30 | Outpatient (RCR) | payer MEDICARE, OTHER, SELFPAY ==
[2024-10-10 00:13] VITALS: BP 114/57; PULSE 73; RESP 18; TEMP 36.4
[2024-10-12 12:16] VITALS: BP 153/84; PULSE 65; RESP 18; TEMP 35.3
--- NOTE | 2024-10-12 14:34 | PN.PCM_ITS ---
History of Present Illness Date of Service: 10/12/24 Chief Complaint: venous ulcers of left lower extremity History of Wound: Mauricio is a 69 yo gentleman who is here today for evaluation of ulcers to to his bilateral lower legs. He has been treated multiple times in the past at the wound healing center for similar ulcers. The left LE ulcer started after he developed increased swelling and blisters of left leg in October and the right leg started sometime at the end of October. He was seen at PCP's office a culture was taken and it was resistant to several antibiotics. He was treated initially with Levaquin but had myalgias and then was treated with doxycycline which he finished 2 days ago. He denies improvement and is having swelling to his left calf and thigh. He has been having swelling to both lower extremities for many years and it has worsened over the last few months. He has not been compliant with compression. He has had increased pain especially in the left leg. He has clear yellow drainage and redness without odor or warmth. He is anti- coagulated on coumadin. He has been washing with Dial soap and witch ifrah. He had been using Collagen at times and using Calcium Alginate and covering with ABD pads during October. He was treated with 3M compression and Aquacel Ag. He was referred to the wound center for ongoing treatment. His ulcers have moderate to heavy drainage. He was in the hospital from 11/30/22 until 12/09/22 for treatment of cellulitis and edema. He underwent treatment with Vancomycin and IV lasix and compression. Discharged on 12/09/22. He returned to his assisted living apartment on Tuesday12/21/22. Subjective Subjective Mauricio is a 69-year-old male with longstanding history of chronic venous ulceration to the left lower extremity. Wound culture from 06/15/24 were positive for multiple bacteria and he completed antibiotic treatment. He has had decreased drainage this week. His edema is a little better this week and he has been using ABDs and Aquacel Extra. There has been improvement in his left medial ulcer overall this week. He is using KATE and size F Tubigrips for compression. 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 He continues to use his lymphedema pumps but continues to have pain with use of these pumps. Right lateral ulcer is larger and culture was positive for several bacteria and he is completing antibiotic treatment today. Objective Data Objective Data Vital Signs: Vital Signs Temp Pulse Resp BP 95.6 F L 65 18 153/84 H 10/12/24 12:16 10/12/24 12:16 10/12/24 12:16 10/12/24 12:16 Physical Exam Const alert, oriented x3 and no apparent distress General Appearance: cooperative and comfortable HEENT normocephalic and head/scalp atraumatic Lymph Lymphatic: lymphedema moderate Resp normal respiratory effort Effort and Inspection: able to speak in complete sentences Cardio regular rate and regular rhythm Extremity General Extremity: edema bilateral lower extremity Details: severe Skin General Skin Exam: venous stasis and dermatitis Wounds: wounds noted Wound Narrative: as in clinical panel, no cellulitis or odor, there is decreased depth, + granulation tissue right lateral ulcer with good granulation and minimal slough Psych mental status grossly normal, thought process normal, cooperative and affect normal Debridement Note Debridement Note Wound debrided: left medial LE ulcer Laterality: Left Type of Debridement: Excisional debridement Anesthesia Used: 5% Lidocaine Gel and Cetacaine Depth: Down to and including healthy tissue and in the subcutaneous layer Percentage of wound debrided: 100 Instrument Used: - (Misonix ultrasonic debridement) Tissue Removed: Yellow slough, devitalized tissue Severity: Fat Layer Exposed Amount of bleeding with debridement: Mild Bleeding Controlled with: Compression and gauze Patient tolerated procedure: Patient tolerated procedure well Post-Debridement Measurements and Additional Note: Post-Debridement Measurements/Treatment [facility] Nurse 1 - General Ulcer Assessment Start: 10/12/24 12:12 Freq: Status: Active Protocol: .MARIAJOSE Activity Type Activity Date Activity User E-sign Co-sign Detail Recorded Client Recorded Date Recorded By Document 10/12/24 12:16 [id number] 10/12/24 12:24 10/12/24 12:16 - Today's Visit Information Type of service Follow-up Visit (Physician/UNDRAPED ARTIST MODEL ) Arrival Mode Ambulatory, Walker Transfer Assistance None Patient Identification Verified (Name & Yes ) Patient Requires Transmission-Based No Precautions Vital Signs Temperature (97.8 F-99.1 F) 95.6 F L Temperature Source Temporal Pulse Rate (60-100) 65 Pulse Location Monitor Respiratory Rate (12-18) 18 Respiratory rate source Observation Blood Pressure (90/60-120/80) 153/84 H Blood Pressure Mean (mm Hg) 107 Source Monitor Position Semi-Fowlers Blood Pressure Location Left Arm History Since Last Visit- (Skip if this is Patient's initial visit) Have you changed medications since your No last visit? Any new allergies or adverse reactions No Had a fall/change in ADL's that may No increase risk of falls Signs or symptoms of abuse and/or No neglect since last visit Have you been in the hospital since your No last visit? Has dressing in place as prescribed Yes Has compression in place as prescribed Yes Has offloadiing in place as prescribed No Experienced any changes in pain level or No management Pain Scale: 0-10 Numeric Is Patient Pain Free? Yes WC - Nurse 1 - General Ulcer Measurement Start: 10/12/24 12:12 Freq: Status: Active Protocol: Activity Type Activity Date Activity User E-sign Co-sign Detail Recorded Client Recorded Date Recorded By Document 10/12/24 12:16 RB [id number] 10/12/24 12:24 RB 10/12/24 12:16 Wound Center Nurse 1 #23 R Lat Leg -Combined with other wound No -Current Size (cm) - Length 8.5 -Current Size (cm) - Width 4.2 -Current Size (cm) - Depth 0.1 -Total Square Cm 35.70 -Tunneling No -Undermining/Tunneling No -Circular Undermining No -Exudate Amt Large -Exudate Type Serosanguineous -Wound Margin Distinct, Outline Attached -Granulation Amt Medium (34-66%) -Granulation Quality [place] -Slough/Fibrin Yes -Necrosis Amt Medium (34-66%) -Necrotic Tissue Type Adherent Slough -Structure Exposed N/A -Texture (Marie-wound Skin Appearance) Assessed, Friable -Moisture (Marie-wound Skin Appearance) Assessed -Color (Marie-wound Skin Appearance) No Abnormality -Temperature (Marie-wound Skin No Abnormality Appearance) (Pt Warm) -Tenderness on Palpation (Marie-wound No Skin Appearance) -Ulcer Cleansing Wound Cleanser -Foul Odor after Cleansing No -Anesthetic Used 5% Lidocaine Gel #22 R Medial Leg -Combined with other wound No -Current Size (cm) - Length 1.5 -Current Size (cm) - Width 1.4 -Current Size (cm) - Depth 0.1 -Total Square Cm 2.10 -Tunneling No -Undermining/Tunneling No -Circular Undermining No -Exudate Amt Large -Exudate Type Serosanguineous -Wound Margin Distinct, Outline Attached -Granulation Amt Medium (34-66%) -Granulation Quality [place] -Slough/Fibrin Yes -Necrosis Amt Small (1-33%) -Necrotic Tissue Type Adherent Slough -Structure Exposed N/A -Texture (Marie-wound Skin Appearance) Assessed, Friable -Moisture (Marie-wound Skin Appearance) Assessed -Color (Marie-wound Skin Appearance) Assessed -Temperature (Marie-wound Skin No Abnormality Appearance) (Pt Warm) -Tenderness on Palpation (Marie-wound No Skin Appearance) -Ulcer Cleansing Wound Cleanser -Anesthetic Used 5% Lidocaine Gel #18 Left medial LE cluster -Combined with other wound No -Current Size (cm) - Length 8.5 -Current Size (cm) - Width 15.5 -Current Size (cm) - Depth 0.2 -Total Square Cm 131.75 -Tunneling No -Undermining/Tunneling No -Circular Undermining No -Exudate Amt Large -Exudate Type Serosanguineous -Wound Margin Distinct, Outline Attached -Granulation Amt Medium (34-66%) -Granulation Quality [place] -Slough/Fibrin Yes -Necrosis Amt Medium (34-66%) -Necrotic Tissue Type Adherent Slough -Structure Exposed N/A -Texture (Marie-wound Skin Appearance) Assessed, Friable -Moisture (Marie-wound Skin Appearance) Assessed -Color (Marie-wound Skin Appearance) Assessed -Temperature (Marie-wound Skin No Abnormality Appearance) (Pt Warm) -Tenderness on Palpation (Marie-wound No Skin Appearance) -Ulcer Cleansing Wound Cleanser -Foul Odor after Cleansing No -Anesthetic Used 5% Lidocaine Gel Lower Limb Edema Present Yes Right Calf (cm) 45 Right Ankle (cm) 30.5 Left Calf (cm) 42 Left Ankle (cm) 31.5 WC - Nurse 2 - General Ulcer CM Notes Start: 10/12/24 12:12 Freq: Status: Active Protocol: Activity Type Activity Date Activity User E-sign Co-sign Detail Recorded Client Recorded Date Recorded By Document 10/12/24 12:16 [id number] 10/12/24 12:30 10/12/24 12:16 Wound Center Nurse 2 #23 R Lat Leg -Time 12:17 -Correct Patient Yes -Correct Side, Site, Position Yes -Correct Procedure Yes -Procedure Performed Yes -Type of Procedure Debridement -Clinical Debridement Subcutaneous -Tissue Removed Subcutaneous -Post Debridement (cm) - Length 6.2 -Post Debridement (cm) - Width 3.8 -Post Debridement (cm) - Depth 0.1 -Total Square (Post) (cm) 23.56 -Area of Debridement (cm) - Length 6.2 -Area of Debridement (cm) - Width 3.8 -Total Square (Area) (cm) 23.56 -Tunneling No -Undermining/Tunneling No -Circular Undermining No -Wound/Ulcer Outcome Not Healed -Ulcer Cleansing Rinsed/ Irrigated with Saline -Foul Odor after Cleansing No -Bleeding Controlled with Pressure -Treatment Response Procedure Tolerated Well -Debridement - Subq, 1st 20sq cm No #22 R Medial Leg -Time 12:17 -Correct Patient Yes -Correct Side, Site, Position Yes -Correct Procedure Yes -Procedure Performed Yes -Type of Procedure Debridement -Clinical Debridement Subcutaneous -Tissue Removed Subcutaneous -Post Debridement (cm) - Length 1.5 -Post Debridement (cm) - Width 1.7 -Post Debridement (cm) - Depth 0.1 -Total Square (Post) (cm) 2.55 -Area of Debridement (cm) - Length 1.5 -Area of Debridement (cm) - Width 1.7 -Total Square (Area) (cm) 2.55 -Tunneling No -Undermining/Tunneling No -Circular Undermining No -Wound/Ulcer Outcome Not Healed -Ulcer Cleansing Rinsed/ Irrigated with Saline -Foul Odor after Cleansing No -Bioengineered Tissue No -Bleeding Controlled with Pressure -Treatment Response Procedure Tolerated Well -Debridement - Subq, 1st 20sq cm No #18 Left medial LE cluster -Time 12:17 -Correct Patient Yes -Correct Side, Site, Position Yes -Correct Procedure Yes -Procedure Performed Yes -Type of Procedure Debridement -Clinical Debridement Subcutaneous -Tissue Removed Subcutaneous -Post Debridement (cm) - Length 8.3 -Post Debridement (cm) - Width 13.2 -Post Debridement (cm) - Depth 0.1 -Total Square (Post) (cm) 109.56 -Area of Debridement (cm) - Length 8.3 -Area of Debridement (cm) - Width 13.2 -Total Square (Area) (cm) 109.56 -Tunneling No -Undermining/Tunneling No -Circular Undermining No -Wound/Ulcer Outcome Not Healed -Ulcer Cleansing Rinsed/ Irrigated with Saline -Foul Odor after Cleansing No -Bioengineered Tissue No -Bleeding Controlled with Pressure -Treatment Response Procedure Tolerated Well -Debridement - Subq, 1st 20sq cm Yes -Debridement, SubQ, ea addt'l 20sq cm 6 or part thereof Pain Scale: 0-10 Numeric Is Patient Pain Free? Yes - Nurse 3 - General Ulcer D/C NN Start: 10/12/24 12:12 Freq: Status: Active Protocol: Activity Type Activity Date Activity User E-sign Co-sign Detail Recorded Client Recorded Date Recorded By Document 10/12/24 12:36 KW [id number] 10/12/24 12:37 KW 10/12/24 12:36 Wound Care Center Nurse 3 #23 R Lat Leg -Primary Dressing Applied Aquacel AG 4x4 -Primary Dressing Covered/Secured with Dry Gauze & Roll Gauze, Secured with Tape -Aquacel AG 4x4 1 #22 R Medial Leg -Other Dressing aquacel ag -Primary Dressing Covered/Secured with Dry Gauze #18 Left medial LE cluster -Primary Dressing Applied Fibracol Plus 4x4 -Primary Dressing Covered/Secured with Dry Gauze & Roll Gauze, Secured with Tape -Fibracol Plus 4x4 1 Right -Tubular Bandage Single Layer -Size of Tubigrip Used Size F -Size F ($) 1 Left -Tubular Bandage Single Layer -Size of Tubigrip Used Size F -Size F ($) 1 Pain Scale: 0-10 Numeric Is Patient Pain Free? Yes - Visit Discharge Discharge Condition Stable Ambulatory Status Ambulatory, Walker Medication Reconcilliation completed & No provided to patient/care provider Clinical Summary of Care Provided Yes Additional Wound Wound debrided: right lateral leg Laterality: Right Type of Debridement: Excisional debridement Anesthesia Used: 5% Lidocaine Gel and Cetacaine Depth: Down to and including healthy tissue and in the subcutaneous layer Percentage of wound debrided: 100 Instrument Used: - (Misonix ultrasonic debridement) Tissue Removed: Yellow slough, devitalized tissue Severity: Fat Layer Exposed Amount of bleeding with debridement: Mild Bleeding Controlled with: Compression and gauze Patient tolerated procedure: Patient tolerated procedure well Additional Wound Wound debrided: right medial leg Laterality: Right Type of Debridement: Excisional debridement Anesthesia Used: 5% Lidocaine Gel and Cetacaine Depth: Down to and including healthy tissue and in the subcutaneous layer Percentage of wound debrided: 100 Instrument Used: - (Misonix ultrasonic debridement) Tissue Removed: Yellow slough, devitalized tissue Severity: Fat Layer Exposed Amount of bleeding with debridement: Mild Bleeding Controlled with: Compression and gauze Patient tolerated procedure: Patient tolerated procedure well Assessment/Plan Assessment/Plan (1) Lymphedema: CODE(S): I89.0 - Lymphedema, not elsewhere classified (2) Hypertension: CODE(S): I10 - Essential (primary) hypertension QUALIFIERS: Hypertension type: primary hypertension Qualified Code(s): I10 - Essential (primary) hypertension (3) Hyperlipidemia: CODE(S): E78.5 - Hyperlipidemia, unspecified QUALIFIERS: Hyperlipidemia type: mixed hyperlipidemia Qualified Code(s): E78.2 - Mixed hyperlipidemia (4) History of DVT (deep vein thrombosis): CODE(S): Z86.718 - Personal history of other venous thrombosis and embolism (5) Venous insufficiency (chronic) (peripheral): CODE(S): I87.2 - Venous insufficiency (chronic) (peripheral) (6) Venous ulcer of left lower extremity with varicose veins: CODE(S): I83.029 - Varicose veins of left lower extremity with ulcer of unspecified site (7) Edema: CODE(S): R60.9 - Edema, unspecified QUALIFIERS: Edema type: unspecified Qualified Code(s): R60.9 - Edema, unspecified (8) Venous ulcer of right lower extremity with varicose veins: CODE(S): I83.019 - Varicose veins of right lower extremity with ulcer of unspecified site; L97.919 - Non-pressure chronic ulcer of unspecified part of right lower leg with unspecified severity (9) Ulcer of left lower extremity with fat layer exposed: CODE(S): L97.922 - Non-pressure chronic ulcer of unspecified part of left lower leg with fat layer exposed PLAN: Plan Evaluation and debridement of left medial LE ulcer performed today in clinic as annotated above. At home wound-care instructions: Will have him continue Calcium Alginate changed daily to left medial LE. Right lateral LE will have him use Aquacel Ag changed daily. Continue compression with F tubigrips b/l. Due to the delayed progress in wound healing of his venous ulcers, we discussed applying for advanced wound healing product for healing his ulcer. Due to the size of his ulcer, Theraskin application approval was requested from his insurance as it is medically necessary for salvaging his limb and healing his ulcer. He underwent 2 applications of Theraskin to this ulcer. Since application of Theraskin he has had much improvement in epithelialization of his ulcer even though the overall size is not significantly changed there is progress. Off-loading: The patient was instructed to avoid pressure and friction on the affected areas. Reposition every 2 hours at minimum. Avoid prolonged standing and/or dangling of legs. When seated, feet should be elevated at chest level. Frequent ambulation is encouraged. Encouraged lymphedema pump use. Diet: Patient encouraged to increase protein intake while taking caution to avoid high carbohydrate and/or sugar intake. Labs/cultures/imaging: Wound culture showed Pseudomonas, Escherichia hermannii, Raoultella planticola, Vancomycin Resist. E. faecalis, Alcaligenes faecalis ssp faeca, Staphylococcus cohnii urealyti and anaerobic bacteria on 06/15/24 and he completed on Levofloxacin and Augmentin. Wound culture taken today on right lateral ulcer which showed Raoultella planticola, Staph hemolyticus, staph epidermidis and morganella morganii but no anaeroobic bacteria, Levofloxacin and doxycyline were prescribed based on culture results. Follow-up: Return in 1 week for wound care follow up and have dressing changed by home health Tuesday and Tuesday. Return sooner or report to the emergency room should symptoms worsen, or new symptoms arise. Note: [email or web address] speech recognition cotton bag sewer software was used to create portions of this document. Sound-alike and misspelled words, as well as other cotton bag sewer errors may be contained in the documentation.
[2024-10-19 09:43] VITALS: BP 117/67; PULSE 58; RESP 18; TEMP 35.5
--- NOTE | 2024-10-19 13:05 | PN.PCM_ITS ---
History of Present Illness Date of Service: 10/19/24 Chief Complaint: venous ulcers of left lower extremity History of Wound: Mauricio is a 69 yo gentleman who is here today for evaluation of ulcers to to his bilateral lower legs. He has been treated multiple times in the past at the wound healing center for similar ulcers. The left LE ulcer started after he developed increased swelling and blisters of left leg in October and the right leg started sometime at the end of October. He was seen at PCP's office a culture was taken and it was resistant to several antibiotics. He was treated initially with Levaquin but had myalgias and then was treated with doxycycline which he finished 2 days ago. He denies improvement and is having swelling to his left calf and thigh. He has been having swelling to both lower extremities for many years and it has worsened over the last few months. He has not been compliant with compression. He has had increased pain especially in the left leg. He has clear yellow drainage and redness without odor or warmth. He is anti- coagulated on coumadin. He has been washing with Dial soap and witch ifrah. He had been using Collagen at times and using Calcium Alginate and covering with ABD pads during October. He was treated with 3M compression and Aquacel Ag. He was referred to the wound center for ongoing treatment. His ulcers have moderate to heavy drainage. He was in the hospital from 11/30/22 until 12/09/22 for treatment of cellulitis and edema. He underwent treatment with Vancomycin and IV lasix and compression. Discharged on 12/09/22. He returned to his assisted living apartment on Tuesday12/21/22. Subjective Subjective Mauricio is a 69-year-old male with longstanding history of chronic venous ulceration to the left lower extremity. Wound culture from 06/15/24 were positive for multiple bacteria and he completed antibiotic treatment. He has had decreased drainage this week. His edema is a little better this week and he has been using ABDs and Aquacel Extra. There has been improvement in his left medial ulcer overall this week. He is using KATE and size F Tubigrips for compression. 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 He continues to use his lymphedema pumps but continues to have pain with use of these pumps. Right lateral ulcer is larger and culture was positive for several bacteria and he is completing antibiotic treatment today. Objective Data Objective Data Vital Signs: Vital Signs Temp Pulse Resp BP 96 F L 58 L 18 117/67 10/19/24 09:43 10/19/24 09:43 10/19/24 09:43 10/19/24 09:43 Physical Exam Const alert, oriented x3 and no apparent distress General Appearance: cooperative and comfortable HEENT normocephalic and head/scalp atraumatic Lymph Lymphatic: lymphedema moderate Resp normal respiratory effort Effort and Inspection: able to speak in complete sentences Cardio regular rate and regular rhythm Extremity General Extremity: edema bilateral lower extremity Details: severe Skin General Skin Exam: venous stasis and dermatitis Wounds: wounds noted Wound Narrative: as in clinical panel, no cellulitis or odor, there is decreased depth, + granulation tissue right lateral ulcer with good granulation and minimal slough Psych mental status grossly normal, thought process normal, cooperative and affect normal Debridement Note Debridement Note Wound debrided: left medial LE ulcer Laterality: Left Type of Debridement: Excisional debridement Anesthesia Used: 5% Lidocaine Gel and Cetacaine Depth: Down to and including healthy tissue and in the subcutaneous layer Percentage of wound debrided: 100 Instrument Used: - (Misonix ultrasonic debridement) Tissue Removed: Yellow slough, devitalized tissue Severity: Fat Layer Exposed Amount of bleeding with debridement: Mild Bleeding Controlled with: Compression and gauze Patient tolerated procedure: Patient tolerated procedure well Post-Debridement Measurements and Additional Note: Post-Debridement Measurements/Treatment - Nurse 1 - General Ulcer Assessment Start: 10/12/24 12:12 Freq: Status: Active Protocol: .[place] Activity Type Activity Date Activity User E-sign Co-sign Detail Recorded Client Recorded Date Recorded By Document 10/12/24 12:16 RB [id number] 10/12/24 12:24 RB Document 10/19/24 09:43 RB [id number] 10/19/24 10:07 RB 10/12/24 10/19/24 12:16 09:43 - Today's Visit Information Type of service Follow-up Visit Follow-up Visit (Physician/DIRECTOR MONEY (Physician/DIRECTOR MONEY ) ) Arrival Mode Ambulatory, Ambulatory, Walker Walker Transfer Assistance None None Patient Identification Verified (Name & Yes Yes ) Patient Requires Transmission-Based No No Precautions Vital Signs Temperature (97.8 F-99.1 F) 95.6 F L 96 F L Temperature Source Temporal Temporal Pulse Rate (60-100) 65 58 L Pulse Location Monitor Monitor Respiratory Rate (12-18) 18 18 Respiratory rate source Observation Observation Blood Pressure (90/60-120/80) 153/84 H 117/67 Blood Pressure Mean (mm Hg) 107 83 Source Monitor Monitor Position Semi-Fowlers Semi-Fowlers Blood Pressure Location Left Arm Left Arm History Since Last Visit- (Skip if this is Patient's initial visit) Have you changed medications since your No No last visit? Any new allergies or adverse reactions No No Had a fall/change in ADL's that may No No increase risk of falls Signs or symptoms of abuse and/or No No neglect since last visit Have you been in the hospital since your No No last visit? Has dressing in place as prescribed Yes Yes Has compression in place as prescribed Yes Yes Has offloadiing in place as prescribed No N/A Experienced any changes in pain level or No No management Left Footwear Regular Shoe Right Footwear Regular Shoe Pain Scale: 0-10 Numeric Is Patient Pain Free? Yes No LLE -Description Aching -Intensity 6 -Duration (hours) Acute -Pain Behavior Guarding -Pain Aggravating Factors Exercise/ Activity -Alleviating Factors/Interventions Medication -Effectiveness of Alleviating Factor/ Moderately Intervention effective WC - Nurse 1 - General Ulcer Measurement Start: 10/12/24 12:12 Freq: Status: Active Protocol: Activity Type Activity Date Activity User E-sign Co-sign Detail Recorded Client Recorded Date Recorded By Document 10/12/24 12:16 RB [id number] 10/12/24 12:24 RB Document 10/19/24 09:43 RB [id number] 10/19/24 10:07 RB 10/12/24 10/19/24 12:16 09:43 Wound Center Nurse 1 #23 R Lat Leg -Combined with other wound No No -Current Size (cm) - Length 8.5 6 -Current Size (cm) - Width 4.2 5 -Current Size (cm) - Depth 0.1 0.1 -Total Square Cm 35.70 30 -Photo Taken No -Tunneling No No -Undermining/Tunneling No No -Circular Undermining No No -Exudate Amt Large Large -Exudate Type Serosanguineous Serosanguineous -Wound Margin Distinct, Distinct, Outline Outline Attached Attached -Granulation Amt Medium (34-66%) Medium (34-66%) -Granulation Quality [place],Red -Slough/Fibrin Yes Yes -Necrosis Amt Medium (34-66%) Medium (34-66%) -Necrotic Tissue Type Adherent Slough Adherent Slough -Structure Exposed N/A N/A -Texture (Marie-wound Skin Appearance) Assessed, Assessed, Friable Friable -Moisture (Marie-wound Skin Appearance) Assessed Assessed -Color (Marie-wound Skin Appearance) No Abnormality Assessed -Temperature (Marie-wound Skin No Abnormality No Abnormality Appearance) (Pt Warm) (Pt Warm) -Tenderness on Palpation (Marie-wound No No Skin Appearance) -Ulcer Cleansing Wound Cleanser Wound Cleanser -Foul Odor after Cleansing No No -Anesthetic Used 5% Lidocaine 5% Lidocaine Gel Gel #22 R Medial Leg -Combined with other wound No No -Current Size (cm) - Length 1.5 2 -Current Size (cm) - Width 1.4 1.8 -Current Size (cm) - Depth 0.1 0.1 -Total Square Cm 2.10 3.6 -Photo Taken No -Tunneling No No -Undermining/Tunneling No No -Circular Undermining No No -Exudate Amt Large Medium -Exudate Type Serosanguineous Serosanguineous -Wound Margin Distinct, Distinct, Outline Outline Attached Attached -Granulation Amt Medium (34-66%) Medium (34-66%) -Granulation Quality [place],Red -Slough/Fibrin Yes Yes -Necrosis Amt Small (1-33%) Medium (34-66%) -Necrotic Tissue Type Adherent Slough Adherent Slough -Structure Exposed N/A N/A -Texture (Marie-wound Skin Appearance) Assessed, Assessed, Friable Friable -Moisture (Marie-wound Skin Appearance) Assessed Assessed -Color (Marie-wound Skin Appearance) Assessed Assessed -Temperature (Marie-wound Skin No Abnormality No Abnormality Appearance) (Pt Warm) (Pt Warm) -Tenderness on Palpation (Marie-wound No No Skin Appearance) -Ulcer Cleansing Wound Cleanser Wound Cleanser -Foul Odor after Cleansing No -Anesthetic Used 5% Lidocaine 5% Lidocaine Gel Gel #18 Left medial LE cluster -Combined with other wound No No -Current Size (cm) - Length 8.5 16 -Current Size (cm) - Width 15.5 8 -Current Size (cm) - Depth 0.2 0.1 -Total Square Cm 131.75 128 -Tunneling No No -Undermining/Tunneling No No -Circular Undermining No No -Exudate Amt Large Medium -Exudate Type Serosanguineous Serosanguineous -Wound Margin Distinct, Distinct, Outline Outline Attached Attached -Granulation Amt Medium (34-66%) Medium (34-66%) -Granulation Quality [place] -Slough/Fibrin Yes Yes -Necrosis Amt Medium (34-66%) Medium (34-66%) -Necrotic Tissue Type Adherent Slough Adherent Slough -Structure Exposed N/A N/A -Texture (Marie-wound Skin Appearance) Assessed, Assessed, Friable Friable -Moisture (Marie-wound Skin Appearance) Assessed Assessed -Color (Marie-wound Skin Appearance) Assessed Assessed -Temperature (Marie-wound Skin No Abnormality No Abnormality Appearance) (Pt Warm) (Pt Warm) -Tenderness on Palpation (Marie-wound No No Skin Appearance) -Ulcer Cleansing Wound Cleanser Wound Cleanser -Foul Odor after Cleansing No No -Anesthetic Used 5% Lidocaine 5% Lidocaine Gel Gel Lower Limb Edema Present Yes Yes Right Calf (cm) 45 48.5 Right Ankle (cm) 30.5 31.2 Left Calf (cm) 42 44.5 Left Ankle (cm) 31.5 29.5 WC - Nurse 2 - General Ulcer CM Notes Start: 10/12/24 12:12 Freq: Status: Active Protocol: Activity Type Activity Date Activity User E-sign Co-sign Detail Recorded Client Recorded Date Recorded By Document 10/12/24 12:16 [id number] 10/12/24 12:30 Document 10/19/24 10:35 [id number] 10/19/24 10:49 10/12/24 10/19/24 12:16 10:35 Wound Center Nurse 2 #23 R Lat Leg -Time 12:17 10:37 -Correct Patient Yes Yes -Correct Side, Site, Position Yes Yes -Correct Procedure Yes Yes -Procedure Performed Yes Yes -Type of Procedure Debridement Debridement -Clinical Debridement Subcutaneous Subcutaneous -Tissue Removed Subcutaneous Subcutaneous -Post Debridement (cm) - Length 6.2 9.3 -Post Debridement (cm) - Width 3.8 4.9 -Post Debridement (cm) - Depth 0.1 0.1 -Total Square (Post) (cm) 23.56 45.57 -Area of Debridement (cm) - Length 6.2 9.3 -Area of Debridement (cm) - Width 3.8 4.9 -Total Square (Area) (cm) 23.56 45.57 -Tunneling No No -Undermining/Tunneling No No -Circular Undermining No No -Wound/Ulcer Outcome Not Healed Not Healed -Ulcer Cleansing Rinsed/ Rinsed/ Irrigated with Irrigated with Saline Saline -Foul Odor after Cleansing No No -Bioengineered Tissue No -Bleeding Controlled with Pressure Pressure -Treatment Response Procedure Procedure Tolerated Well Tolerated Well -Debridement - Subq, 1st 20sq cm No No #22 R Medial Leg -Time 12:17 10:37 -Correct Patient Yes Yes -Correct Side, Site, Position Yes Yes -Correct Procedure Yes Yes -Procedure Performed Yes Yes -Type of Procedure Debridement Debridement -Clinical Debridement Subcutaneous Subcutaneous -Tissue Removed Subcutaneous Subcutaneous -Post Debridement (cm) - Length 1.5 2.0 -Post Debridement (cm) - Width 1.7 1.8 -Post Debridement (cm) - Depth 0.1 0.1 -Total Square (Post) (cm) 2.55 3.60 -Area of Debridement (cm) - Length 1.5 2.0 -Area of Debridement (cm) - Width 1.7 1.8 -Total Square (Area) (cm) 2.55 3.60 -Tunneling No No -Undermining/Tunneling No No -Circular Undermining No No -Wound/Ulcer Outcome Not Healed Not Healed -Ulcer Cleansing Rinsed/ Rinsed/ Irrigated with Irrigated with Saline Saline -Foul Odor after Cleansing No No -Bioengineered Tissue No No -Bleeding Controlled with Pressure Pressure -Treatment Response Procedure Procedure Tolerated Well Tolerated Well -Debridement - Subq, 1st 20sq cm No No #18 Left medial LE cluster -Time 12:17 10:38 -Correct Patient Yes Yes -Correct Side, Site, Position Yes Yes -Correct Procedure Yes Yes -Procedure Performed Yes Yes -Type of Procedure Debridement Debridement -Clinical Debridement Subcutaneous Subcutaneous -Tissue Removed Subcutaneous Subcutaneous -Post Debridement (cm) - Length 8.3 8.5 -Post Debridement (cm) - Width 13.2 12.5 -Post Debridement (cm) - Depth 0.1 0.1 -Total Square (Post) (cm) 109.56 106.25 -Area of Debridement (cm) - Length 8.3 8.5 -Area of Debridement (cm) - Width 13.2 12.5 -Total Square (Area) (cm) 109.56 106.25 -Tunneling No No -Undermining/Tunneling No No -Circular Undermining No No -Wound/Ulcer Outcome Not Healed Not Healed -Ulcer Cleansing Rinsed/ Rinsed/ Irrigated with Irrigated with Saline Saline -Foul Odor after Cleansing No No -Bioengineered Tissue No No -Bleeding Controlled with Pressure Pressure -Treatment Response Procedure Procedure Tolerated Well Tolerated Well -Debridement - Subq, 1st 20sq cm Yes Yes -Debridement, SubQ, ea addt'l 20sq cm 6 7 or part thereof Pain Scale: 0-10 Numeric Is Patient Pain Free? Yes Yes WC - Nurse 3 - General Ulcer D/C NN Start: 10/12/24 12:12 Freq: Status: Active Protocol: Activity Type Activity Date Activity User E-sign Co-sign Detail Recorded Client Recorded Date Recorded By Document 10/12/24 12:36 KW [id number] 10/12/24 12:37 KW Document 10/19/24 11:28 RB [id number] 10/19/24 11:30 RB 10/12/24 10/19/24 12:36 11:28 Wound Care Center Nurse 3 #23 R Lat Leg -Ulcer Cleansing Rinsed/ Irrigated with Saline -Primary Dressing Applied Aquacel AG 4x4 Aquacel AG 4x4 -Other Dressing abd -Primary Dressing Covered/Secured with Dry Gauze & Dry Gauze,Dry Roll Gauze, Gauze & Roll Secured with Gauze,Secured Tape with Tape -Aquacel AG 4x4 1 1 #22 R Medial Leg -Ulcer Cleansing Rinsed/ Irrigated with Saline -Other Dressing aquacel ag aquacel AG/abd -Primary Dressing Covered/Secured with Dry Gauze Dry Gauze,Dry Gauze & Roll Gauze,Secured with Tape #18 Left medial LE cluster -Ulcer Cleansing Rinsed/ Irrigated with Saline -Primary Dressing Applied Fibracol Plus Fibracol Plus 4x4 4x4 -Primary Dressing Covered/Secured with Dry Gauze & Roll Gauze, Secured with Tape -Fibracol Plus 4x4 1 2 wili -Tubular Bandage Single Layer -Size of Tubigrip Used Size F -Size F ($) 2 -Other kate Right -Tubular Bandage Single Layer -Size of Tubigrip Used Size F -Size F ($) 1 Left -Tubular Bandage Single Layer -Size of Tubigrip Used Size F -Size F ($) 1 Pain Scale: 0-10 Numeric Is Patient Pain Free? Yes Yes WC - Visit Discharge Discharge Condition Stable Stable Ambulatory Status Ambulatory, Ambulatory, Walker Walker Transportation Private Auto Medication Reconcilliation completed & No No provided to patient/care provider Clinical Summary of Care Provided Yes Yes Additional Wound Wound debrided: right lateral leg Laterality: Right Type of Debridement: Excisional debridement Anesthesia Used: 5% Lidocaine Gel and Cetacaine Depth: Down to and including healthy tissue and in the subcutaneous layer Percentage of wound debrided: 100 Instrument Used: - (Misonix ultrasonic debridement) Tissue Removed: Yellow slough, devitalized tissue Severity: Fat Layer Exposed Amount of bleeding with debridement: Mild Bleeding Controlled with: Compression and gauze Patient tolerated procedure: Patient tolerated procedure well Additional Wound Wound debrided: right medial leg Laterality: Right Type of Debridement: Excisional debridement Anesthesia Used: 5% Lidocaine Gel and Cetacaine Depth: Down to and including healthy tissue and in the subcutaneous layer Percentage of wound debrided: 100 Instrument Used: - (Misonix ultrasonic debridement) Tissue Removed: Yellow slough, devitalized tissue Severity: Fat Layer Exposed Amount of bleeding with debridement: Mild Bleeding Controlled with: Compression and gauze Patient tolerated procedure: Patient tolerated procedure well Assessment/Plan Assessment/Plan (1) Lymphedema: CODE(S): I89.0 - Lymphedema, not elsewhere classified (2) Hypertension: CODE(S): I10 - Essential (primary) hypertension QUALIFIERS: Hypertension type: primary hypertension Qualified Code(s): I10 - Essential (primary) hypertension (3) Hyperlipidemia: CODE(S): E78.5 - Hyperlipidemia, unspecified QUALIFIERS: Hyperlipidemia type: mixed hyperlipidemia Qualified Code(s): E78.2 - Mixed hyperlipidemia (4) History of DVT (deep vein thrombosis): CODE(S): Z86.718 - Personal history of other venous thrombosis and embolism (5) Venous insufficiency (chronic) (peripheral): CODE(S): I87.2 - Venous insufficiency (chronic) (peripheral) (6) Venous ulcer of left lower extremity with varicose veins: CODE(S): I83.029 - Varicose veins of left lower extremity with ulcer of unspecified site (7) Edema: CODE(S): R60.9 - Edema, unspecified QUALIFIERS: Edema type: unspecified Qualified Code(s): R60.9 - Edema, unspecified (8) Venous ulcer of right lower extremity with varicose veins: CODE(S): I83.019 - Varicose veins of right lower extremity with ulcer of unspecified site; L97.919 - Non-pressure chronic ulcer of unspecified part of right lower leg with unspecified severity (9) Ulcer of left lower extremity with fat layer exposed: CODE(S): L97.922 - Non-pressure chronic ulcer of unspecified part of left lower leg with fat layer exposed PLAN: Plan Evaluation and debridement of left medial LE ulcer performed today in clinic as annotated above. At home wound-care instructions: Will have him use Fibracol changed daily to left medial LE. Right lateral LE will have him use Aquacel Ag changed daily. Continue compression with F tubigrips b/l. Due to his chronic lymphedema and being unable to don traditional compression stockings and the presence of venous ulcers on his LE b/l, it is medically necessary for him to have Circaid compression garments. These are being ordered. Due to the delayed progress in wound healing of his venous ulcers, we discussed applying for advanced wound healing product for healing his ulcer. Due to the size of his ulcer, Theraskin application approval was requested from his insurance as it is medically necessary for salvaging his limb and healing his ulcer. He underwent 2 applications of Theraskin to this ulcer. Since application of Theraskin he has had much improvement in epithelialization of his ulcer even though the overall size is not significantly changed there is progress. Off-loading: The patient was instructed to avoid pressure and friction on the affected areas. Reposition every 2 hours at minimum. Avoid prolonged standing and/or dangling of legs. When seated, feet should be elevated at chest level. Frequent ambulation is encouraged. Encouraged lymphedema pump use. Diet: Patient encouraged to increase protein intake while taking caution to avoid high carbohydrate and/or sugar intake. Labs/cultures/imaging: Wound culture showed Pseudomonas, Escherichia hermannii, Raoultella planticola, Vancomycin Resist. E. faecalis, Alcaligenes faecalis ssp faeca, Staphylococcus cohnii urealyti and anaerobic bacteria on 06/15/24 and he completed on Levofloxacin and Augmentin. Wound culture taken today on right lateral ulcer which showed Raoultella planticola, Staph hemolyticus, staph epidermidis and morganella morganii but no anaeroobic bacteria, Levofloxacin and doxycyline were prescribed based on culture results. Labs ordered 10/19/2024. Follow-up: Return in 1 week for wound care follow up and have dressing changed by home health Tuesday and Tuesday. Return sooner or report to the emergency room should symptoms worsen, or new symptoms arise. Note: [employer] speech recognition corporate executive chef software was used to create por tions of this document. Sound-alike and misspelled words, as well as other corporate executive chef errors may be contained in the documentation.
[2024-10-26 09:27] VITALS: BP 129/75; PULSE 69; RESP 18; TEMP 35.7
--- NOTE | 2024-10-26 13:45 | PN.PCM_ITS ---
History of Present Illness Date of Service: 10/26/24 Chief Complaint: venous ulcers of left lower extremity History of Wound: Mauricio is a 69 yo gentleman who is here today for evaluation of ulcers to to his bilateral lower legs. He has been treated multiple times in the past at the wound healing center for similar ulcers. The left LE ulcer started after he developed increased swelling and blisters of left leg in October and the right leg started sometime at the end of October. He was seen at PCP's office a culture was taken and it was resistant to several antibiotics. He was treated initially with Levaquin but had myalgias and then was treated with doxycycline which he finished 2 days ago. He denies improvement and is having swelling to his left calf and thigh. He has been having swelling to both lower extremities for many years and it has worsened over the last few months. He has not been compliant with compression. He has had increased pain especially in the left leg. He has clear yellow drainage and redness without odor or warmth. He is anti- coagulated on coumadin. He has been washing with Dial soap and witch ifrah. He had been using Collagen at times and using Calcium Alginate and covering with ABD pads during October. He was treated with 3M compression and Aquacel Ag. He was referred to the wound center for ongoing treatment. His ulcers have moderate to heavy drainage. He was in the hospital from 11/30/22 until 12/09/22 for treatment of cellulitis and edema. He underwent treatment with Vancomycin and IV lasix and compression. Discharged on 12/09/22. He returned to his assisted living apartment on Tuesday12/21/22. Subjective Subjective Mauricio is a 69-year-old male with longstanding history of chronic venous ulceration to the left lower extremity. Wound culture from 06/15/24 were positive for multiple bacteria and he completed antibiotic treatment. He has had decreased drainage this week. His edema is a little better this week and he has been using ABDs and Aquacel Extra. There has been improvement in his left medial ulcer overall this week. He is using MARCIO and size F Tubigrips for compression. 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 He continues to use his lymphedema pumps but continues to have pain with use of these pumps. Right lateral ulcer is larger and culture was positive for several bacteria and he is completed treatment. Objective Data Objective Data Vital Signs: Vital Signs Temp Pulse Resp BP 96.2 F L 69 18 129/75 H 10/26/24 09:27 10/26/24 09:27 10/26/24 09:27 10/26/24 09:27 Physical Exam Const alert, oriented x3 and no apparent distress General Appearance: cooperative and comfortable HEENT normocephalic and head/scalp atraumatic Lymph Lymphatic: lymphedema moderate Resp normal respiratory effort Effort and Inspection: able to speak in complete sentences Cardio regular rate and regular rhythm Extremity General Extremity: edema bilateral lower extremity Details: severe Skin General Skin Exam: venous stasis and dermatitis Wounds: wounds noted Wound Narrative: as in clinical panel, no cellulitis or odor, there is decreased depth, + granulation tissue right lateral ulcer with good granulation and minimal slough Psych mental status grossly normal, thought process normal, cooperative and affect normal Debridement Note Debridement Note Wound debrided: left medial LE ulcer Laterality: Left Type of Debridement: Excisional debridement Anesthesia Used: 5% Lidocaine Gel and Cetacaine Depth: Down to and including healthy tissue and in the subcutaneous layer Percentage of wound debrided: 100 Instrument Used: - (Misonix ultrasonic debridement) Tissue Removed: Yellow slough, devitalized tissue Severity: Fat Layer Exposed Amount of bleeding with debridement: Mild Bleeding Controlled with: Compression and gauze Patient tolerated procedure: Patient tolerated procedure well Post-Debridement Measurements and Additional Note: Post-Debridement Measurements/Treatment - Nurse 1 - General Ulcer Assessment Start: 10/12/24 12:12 Freq: Status: Active Protocol: .MARIAJOSE Activity Type Activity Date Activity User E-sign Co-sign Detail Recorded Client Recorded Date Recorded By Document 10/12/24 12:16 RB [id number] 10/12/24 12:24 RB Document 10/19/24 09:43 RB [id number] 10/19/24 10:07 RB Document 10/26/24 09:27 RB [id number] 10/26/24 09:49 RB 10/12/24 10/19/24 10/26/24 12:16 09:43 09:27 - Today's Visit Information Type of service Follow-up Visit Follow-up Visit Follow-up Visit (Physician/SALES SUPPORT MANAGER (Physician/SALES SUPPORT MANAGER (Physician/SALES SUPPORT MANAGER ) ) ) Arrival Mode Ambulatory, Ambulatory, Ambulatory, Walker Walker Walker Transfer Assistance None None None Patient Identification Verified (Name & Yes Yes Yes ) Patient Requires Transmission-Based No No No Precautions Vital Signs Temperature (97.8 F-99.1 F) 95.6 F L 96 F L 96.2 F L Temperature Source Temporal Temporal Temporal Pulse Rate (60-100) 65 58 L 69 Pulse Location Monitor Monitor Monitor Respiratory Rate (12-18) 18 18 18 Respiratory rate source Observation Observation Observation Blood Pressure (90/60-120/80) 153/84 H 117/67 129/75 H Blood Pressure Mean (mm Hg) 107 83 93 Source Monitor Monitor Monitor Position Semi-Fowlers Semi-Fowlers Sitting Blood Pressure Location Left Arm Left Arm Right Arm History Since Last Visit- (Skip if this is Patient's initial visit) Have you changed medications since your No No No last visit? Any new allergies or adverse reactions No No No Had a fall/change in ADL's that may No No No increase risk of falls Signs or symptoms of abuse and/or No No No neglect since last visit Have you been in the hospital since your No No No last visit? Has dressing in place as prescribed Yes Yes Yes Has compression in place as prescribed Yes Yes Yes Has offloadiing in place as prescribed No N/A N/A Experienced any changes in pain level or No No No management Left Footwear Regular Shoe Regular Shoe Right Footwear Regular Shoe Regular Shoe Pain Scale: 0-10 Numeric Is Patient Pain Free? Yes No Yes LLE -Description Aching -Intensity 6 -Duration (hours) Acute -Pain Behavior Guarding -Pain Aggravating Factors Exercise/ Activity -Alleviating Factors/Interventions Medication -Effectiveness of Alleviating Factor/ Moderately Intervention effective WC - Nurse 1 - General Ulcer Measurement Start: 10/12/24 12:12 Freq: Status: Active Protocol: Activity Type Activity Date Activity User E-sign Co-sign Detail Recorded Client Recorded Date Recorded By Document 10/12/24 12:16 RB [id number] 10/12/24 12:24 RB Document 10/19/24 09:43 RB [id number] 10/19/24 10:07 RB Document 10/26/24 09:27 RB [id number] 10/26/24 09:49 RB 10/12/24 10/19/24 10/26/24 12:16 09:43 09:27 Wound Center Nurse 1 #23 R Lat Leg -Combined with other wound No No No -Current Size (cm) - Length 8.5 6 7.5 -Current Size (cm) - Width 4.2 5 5.5 -Current Size (cm) - Depth 0.1 0.1 0.1 -Total Square Cm 35.70 30 41.25 -Photo Taken No -Tunneling No No No -Undermining/Tunneling No No No -Circular Undermining No No No -Exudate Amt Large Large Medium -Exudate Type Serosanguineous Serosanguineous Serosanguineous -Wound Margin Distinct, Distinct, Distinct, Outline Outline Outline Attached Attached Attached -Granulation Amt Medium (34-66%) Medium (34-66%) Medium (34-66%) -Granulation Quality [place],Red [place] -Slough/Fibrin Yes Yes Yes -Necrosis Amt Medium (34-66%) Medium (34-66%) Medium (34-66%) -Necrotic Tissue Type Adherent Slough Adherent Slough Adherent Slough -Structure Exposed N/A N/A N/A -Texture (Marie-wound Skin Appearance) Assessed, Assessed, Assessed, Friable Friable Scarring -Moisture (Marie-wound Skin Appearance) Assessed Assessed Assessed -Color (Marie-wound Skin Appearance) No Abnormality Assessed Assessed -Temperature (Marie-wound Skin No Abnormality No Abnormality No Abnormality Appearance) (Pt Warm) (Pt Warm) (Pt Warm) -Tenderness on Palpation (Maire-wound No No No Skin Appearance) -Ulcer Cleansing Wound Cleanser Wound Cleanser Wound Cleanser -Foul Odor after Cleansing No No No -Anesthetic Used 5% Lidocaine 5% Lidocaine 5% Lidocaine Gel Gel Gel #22 R Medial Leg -Combined with other wound No No No -Current Size (cm) - Length 1.5 2 3 -Current Size (cm) - Width 1.4 1.8 2.5 -Current Size (cm) - Depth 0.1 0.1 0.1 -Total Square Cm 2.10 3.6 7.5 -Photo Taken No -Tunneling No No No -Undermining/Tunneling No No No -Circular Undermining No No No -Exudate Amt Large Medium Medium -Exudate Type Serosanguineous Serosanguineous Serosanguineous -Wound Margin Distinct, Distinct, Distinct, Outline Outline Outline Attached Attached Attached -Granulation Amt Medium (34-66%) Medium (34-66%) Medium (34-66%) -Granulation Quality [place],Red [place] -Slough/Fibrin Yes Yes Yes -Necrosis Amt Small (1-33%) Medium (34-66%) Medium (34-66%) -Necrotic Tissue Type Adherent Slough Adherent Slough Adherent Slough -Structure Exposed N/A N/A N/A -Texture (Marie-wound Skin Appearance) Assessed, Assessed, Assessed, Friable Friable Scarring -Moisture (Marie-wound Skin Appearance) Assessed Assessed Assessed -Color (Marie-wound Skin Appearance) Assessed Assessed Assessed -Temperature (Marie-wound Skin No Abnormality No Abnormality No Abnormality Appearance) (Pt Warm) (Pt Warm) (Pt Warm) -Tenderness on Palpation (Marie-wound No No No Skin Appearance) -Ulcer Cleansing Wound Cleanser Wound Cleanser Wound Cleanser -Foul Odor after Cleansing No No -Anesthetic Used 5% Lidocaine 5% Lidocaine 5% Lidocaine Gel Gel Gel #18 Left medial LE cluster -Combined with other wound No No No -Current Size (cm) - Length 8.5 16 3 -Current Size (cm) - Width 15.5 8 2.5 -Current Size (cm) - Depth 0.2 0.1 0.1 -Total Square Cm 131.75 128 7.5 -Tunneling No No No -Undermining/Tunneling No No No -Circular Undermining No No No -Exudate Amt Large Medium Medium -Exudate Type Serosanguineous Serosanguineous Serosanguineous -Wound Margin Distinct, Distinct, Distinct, Outline Outline Outline Attached Attached Attached -Granulation Amt Medium (34-66%) Medium (34-66%) Medium (34-66%) -Granulation Quality [place] -Slough/Fibrin Yes Yes Yes -Necrosis Amt Medium (34-66%) Medium (34-66%) Medium (34-66%) -Necrotic Tissue Type Adherent Slough Adherent Slough Adherent Slough -Structure Exposed N/A N/A N/A -Texture (Marie-wound Skin Appearance) Assessed, Assessed, Assessed Friable Friable -Moisture (Marie-wound Skin Appearance) Assessed Assessed Assessed -Color (Marie-wound Skin Appearance) Assessed Assessed Assessed -Temperature (Marie-wound Skin No Abnormality No Abnormality No Abnormality Appearance) (Pt Warm) (Pt Warm) (Pt Warm) -Tenderness on Palpation (Marie-wound No No No Skin Appearance) -Ulcer Cleansing Wound Cleanser Wound Cleanser Wound Cleanser -Foul Odor after Cleansing No No No -Anesthetic Used 5% Lidocaine 5% Lidocaine 5% Lidocaine Gel Gel Gel Lower Limb Edema Present Yes Yes Yes Right Calf (cm) 45 48.5 49 Right Ankle (cm) 30.5 31.2 31 Left Calf (cm) 42 44.5 46 Left Ankle (cm) 31.5 29.5 29.8 WC - Nurse 2 - General Ulcer CM Notes Start: 10/12/24 12:12 Freq: Status: Active Protocol: Activity Type Activity Date Activity User E-sign Co-sign Detail Recorded Client Recorded Date Recorded By Document 10/12/24 12:16 [id number] 10/12/24 12:30 Document 10/19/24 10:35 [id number] 10/19/24 10:49 Document 10/26/24 10:04 [id number] 10/26/24 10:19 10/12/24 10/19/24 10/26/24 12:16 10:35 10:04 Wound Center Nurse 2 #23 R Lat Leg -Time 12:17 10:37 10:05 -Correct Patient Yes Yes Yes -Correct Side, Site, Position Yes Yes Yes -Correct Procedure Yes Yes Yes -Procedure Performed Yes Yes Yes -Type of Procedure Debridement Debridement Debridement -Clinical Debridement Subcutaneous Subcutaneous Subcutaneous -Tissue Removed Subcutaneous Subcutaneous Subcutaneous -Post Debridement (cm) - Length 6.2 9.3 6.5 -Post Debridement (cm) - Width 3.8 4.9 4.9 -Post Debridement (cm) - Depth 0.1 0.1 0.1 -Total Square (Post) (cm) 23.56 45.57 31.85 -Area of Debridement (cm) - Length 6.2 9.3 6.5 -Area of Debridement (cm) - Width 3.8 4.9 4.9 -Total Square (Area) (cm) 23.56 45.57 31.85 -Tunneling No No No -Undermining/Tunneling No No No -Circular Undermining No No No -Wound/Ulcer Outcome Not Healed Not Healed Not Healed -Ulcer Cleansing Rinsed/ Rinsed/ Rinsed/ Irrigated with Irrigated with Irrigated with Saline Saline Saline -Foul Odor after Cleansing No No No -Bioengineered Tissue No No -Bleeding Controlled with Pressure Pressure Pressure -Treatment Response Procedure Procedure Procedure Tolerated Well Tolerated Well Tolerated Well -Debridement - Subq, 1st 20sq cm No No No #22 R Medial Leg -Time 12:17 10:37 10:06 -Correct Patient Yes Yes Yes -Correct Side, Site, Position Yes Yes Yes -Correct Procedure Yes Yes Yes -Procedure Performed Yes Yes Yes -Type of Procedure Debridement Debridement Debridement -Clinical Debridement Subcutaneous Subcutaneous Subcutaneous -Tissue Removed Subcutaneous Subcutaneous Subcutaneous -Post Debridement (cm) - Length 1.5 2.0 2.3 -Post Debridement (cm) - Width 1.7 1.8 2.2 -Post Debridement (cm) - Depth 0.1 0.1 0.1 -Total Square (Post) (cm) 2.55 3.60 5.06 -Area of Debridement (cm) - Length 1.5 2.0 2.3 -Area of Debridement (cm) - Width 1.7 1.8 2.2 -Total Square (Area) (cm) 2.55 3.60 5.06 -Tunneling No No No -Undermining/Tunneling No No No -Circular Undermining No No No -Wound/Ulcer Outcome Not Healed Not Healed Not Healed -Ulcer Cleansing Rinsed/ Rinsed/ Rinsed/ Irrigated with Irrigated with Irrigated with Saline Saline Saline -Foul Odor after Cleansing No No No -Bioengineered Tissue No No No -Bleeding Controlled with Pressure Pressure Pressure -Treatment Response Procedure Procedure Procedure Tolerated Well Tolerated Well Tolerated Well -Debridement - Subq, 1st 20sq cm No No No #18 Left medial LE cluster -Time 12:17 10:38 10:06 -Correct Patient Yes Yes Yes -Correct Side, Site, Position Yes Yes Yes -Correct Procedure Yes Yes Yes -Procedure Performed Yes Yes Yes -Type of Procedure Debridement Debridement Debridement -Clinical Debridement Subcutaneous Subcutaneous Subcutaneous -Tissue Removed Subcutaneous Subcutaneous Subcutaneous -Post Debridement (cm) - Length 8.3 8.5 8.4 -Post Debridement (cm) - Width 13.2 12.5 13.8 -Post Debridement (cm) - Depth 0.1 0.1 0.1 -Total Square (Post) (cm) 109.56 106.25 115.92 -Area of Debridement (cm) - Length 8.3 8.5 8.4 -Area of Debridement (cm) - Width 13.2 12.5 13.8 -Total Square (Area) (cm) 109.56 106.25 115.92 -Tunneling No No No -Undermining/Tunneling No No No -Circular Undermining No No No -Wound/Ulcer Outcome Not Healed Not Healed Not Healed -Ulcer Cleansing Rinsed/ Rinsed/ Rinsed/ Irrigated with Irrigated with Irrigated with Saline Saline Saline -Foul Odor after Cleansing No No No -Bioengineered Tissue No No No -Bleeding Controlled with Pressure Pressure Pressure -Treatment Response Procedure Procedure Procedure Tolerated Well Tolerated Well Tolerated Well -Debridement - Subq, 1st 20sq cm Yes Yes Yes -Debridement, SubQ, ea addt'l 20sq cm 6 7 7 or part thereof Pain Scale: 0-10 Numeric Is Patient Pain Free? Yes Yes Yes WC - Nurse 3 - General Ulcer D/C NN Start: 10/12/24 12:12 Freq: Status: Active Protocol: Activity Type Activity Date Activity User E-sign Co-sign Detail Recorded Client Recorded Date Recorded By Document 10/12/24 12:36 KW [email or web address] 10/12/24 12:37 KW Document 10/19/24 11:28 RB [id number] 10/19/24 11:30 RB Document 10/26/24 12:42 [id number] 10/26/24 12:48 KW 10/12/24 10/19/24 10/26/24 12:36 11:28 12:42 Wound Care Center Nurse 3 #23 R Lat Leg -Ulcer Cleansing Rinsed/ Irrigated with Saline -Primary Dressing Applied Aquacel AG 4x4 Aquacel AG 4x4 -Primary Dressing Applied Aquacel AG 4x4 -Other Dressing abd -Primary Dressing Covered/Secured with Dry Gauze & Dry Gauze,Dry Dry Gauze & Roll Gauze, Gauze & Roll Roll Gauze, Secured with Gauze,Secured Secured with Tape with Tape Tape -Aquacel AG 4x4 1 1 1 #22 R Medial Leg -Ulcer Cleansing Rinsed/ Irrigated with Saline -Primary Dressing Applied Aquacel AG 4x4 -Other Dressing aquacel ag aquacel AG/abd -Primary Dressing Covered/Secured with Dry Gauze Dry Gauze,Dry Dry Gauze Gauze & Roll Gauze,Secured with Tape -Aquacel AG 4x4 1 #18 Left medial LE cluster -Ulcer Cleansing Rinsed/ Irrigated with Saline -Primary Dressing Applied Fibracol Plus Fibracol Plus 4x4 4x4 -Primary Dressing Applied Aquacel Extra, Fibracol Plus 4x4 -Primary Dressing Covered/Secured with Dry Gauze & Roll Gauze, Secured with Tape -Aquacel Extra 1 -Fibracol Plus 4x4 1 2 1 wili -Tubular Bandage Single Layer -Size of Tubigrip Used Size F -Size F ($) 2 -Other marcio Right -Compression Wrap Marcio Wrap -Tubular Bandage Single Layer Single Layer -Size of Tubigrip Used Size F Size F -Size F ($) 1 1 Left -Compression Wrap Marcio Wrap -Tubular Bandage Single Layer Single Layer -Size of Tubigrip Used Size F Size F -Size F ($) 1 1 Pain Scale: 0-10 Numeric Is Patient Pain Free? Yes Yes Yes WC - Visit Discharge Discharge Condition Stable Stable Stable Ambulatory Status Ambulatory, Ambulatory, Ambulatory Walker Walker Transportation Private Auto Private Auto Medication Reconcilliation completed & No No No provided to patient/care provider Clinical Summary of Care Provided Yes Yes Yes Additional Wound Wound debrided: right lateral leg Laterality: Right Type of Debridement: Excisional debridement Anesthesia Used: 5% Lidocaine Gel and Cetacaine Depth: Down to and including healthy tissue and in the subcutaneous layer Percentage of wound debrided: 100 Instrument Used: - (Misonix ultrasonic debridement) Tissue Removed: Yellow slough, devitalized tissue Severity: Fat Layer Exposed Amount of bleeding with debridement: Mild Bleeding Controlled with: Compression and gauze Patient tolerated procedure: Patient tolerated procedure well Additional Wound Wound debrided: right medial leg Laterality: Right Type of Debridement: Excisional debridement Anesthesia Used: 5% Lidocaine Gel and Cetacaine Depth: Down to and including healthy tissue and in the subcutaneous layer Percentage of wound debrided: 100 Instrument Used: - (Misonix ultrasonic debridement) Tissue Removed: Yellow slough, devitalized tissue Severity: Fat Layer Exposed Amount of bleeding with debridement: Mild Bleeding Controlled with: Compression and gauze Patient tolerated procedure: Patient tolerated procedure well Assessment/Plan Assessment/Plan (1) Lymphedema: CODE(S): I89.0 - Lymphedema, not elsewhere classified (2) Hypertension: CODE(S): I10 - Essential (primary) hypertension QUALIFIERS: Hypertension type: primary hypertension Qualified Code(s): I10 - Essential (primary) hypertension (3) Hyperlipidemia: CODE(S): E78.5 - Hyperlipidemia, unspecified QUALIFIERS: Hyperlipidemia type: mixed hyperlipidemia Qualified Code(s): E78.2 - Mixed hyperlipidemia (4) History of DVT (deep vein thrombosis): CODE(S): Z86.718 - Personal history of other venous thrombosis and embolism (5) Venous insufficiency (chronic) (peripheral): CODE(S): I87.2 - Venous insufficiency (chronic) (peripheral) (6) Venous ulcer of left lower extremity with varicose veins: CODE(S): I83.029 - Varicose veins of left lower extremity with ulcer of unspecified site (7) Edema: CODE(S): R60.9 - Edema, unspecified QUALIFIERS: Edema type: unspecified Qualified Code(s): R60.9 - Edema, unspecified (8) Venous ulcer of right lower extremity with varicose veins: CODE(S): I83.019 - Varicose veins of right lower extremity with ulcer of unspecified site; L97.919 - Non-pressure chronic ulcer of unspecified part of right lower leg with unspecified severity (9) Ulcer of left lower extremity with fat layer exposed: CODE(S): L97.922 - Non-pressure chronic ulcer of unspecified part of left lower leg with fat layer exposed PLAN: Plan Evaluation and debridement of left medial LE ulcer performed today in clinic as annotated above. At home wound-care instructions: Will have him use Fibracol changed daily to left medial LE. Right lateral LE will have him use Aquacel Ag changed daily. Continue compression with F tubigrips b/l. Due to his chronic lymphedema and being unable to don traditional compression stockings and the presence of venous ulcers on his LE b/l, it is medically necessary for him to have Circaid compression garments. These are being ordered. I suspect he is not very compliant with his lymphedema pumps and not getting adequate compression with tubigrips. Due to the delayed progress in wound healing of his venous ulcers, we discussed applying for advanced wound healing product for healing his ulcer. Due to the size of his ulcer, Theraskin application approval was requested from his insurance as it is medically necessary for salvaging his limb and healing his ulcer. He underwent 2 applications of Theraskin to this ulcer. Since application of Theraskin he has had much improvement in epithelialization of his ulcer even though the overall size is not significantly changed there is progress. Off-loading: The patient was instructed to avoid pressure and friction on the affected areas. Reposition every 2 hours at minimum. Avoid prolonged standing and/or dangling of legs. When seated, feet should be elevated at chest level. Frequent ambulation is encouraged. Encouraged lymphedema pump use. Diet: Patient encouraged to increase protein intake while taking caution to avoid high carbohydrate and/or sugar intake. Labs/cultures/imaging: Wound culture showed Pseudomonas, Escherichia hermannii, Raoultella planticola, Vancomycin Resist. E. faecalis, Alcaligenes faecalis ssp faeca, Staphylococcus cohnii urealyti and anaerobic bacteria on 06/15/24 and he completed on Levofloxacin and Augmentin. Wound culture taken today on right lateral ulcer which showed Raoultella planticola, Staph hemolyticus, staph epidermidis and morganella morganii but no anaeroobic bacteria, Levofloxacin and doxycyline were prescribed based on culture results. Labs ordered 10/19/2024. Follow-up: Return in 1 week for wound care follow up and have dressing changed by home health Tuesday and Tuesday. Return sooner or report to the emergency room should symptoms worsen, or new symptoms arise. Note: [employer] speech recognition cessation systems outreach specialist software was used to create portions of this document. Sound-alike and misspelled words, as well as other cessation systems outreach specialist errors may be contained in the documentation.
[2024-11-02 09:58] VITALS: BP 100/57; PULSE 70; RESP 18; TEMP 36.6
--- NOTE | 2024-11-02 13:22 | PCM.WC.PN ---
History of Present Illness Date of Service: 11/02/24 Chief Complaint: venous ulcers of left lower extremity History of Wound: Mauricio is a 69 yo gentleman who is here today for evaluation of ulcers to to his bilateral lower legs. He has been treated multiple times in the past at the wound healing center for similar ulcers. The left LE ulcer started after he developed increased swelling and blisters of left leg in October and the right leg started sometime at the end of October. He was seen at PCP's office a culture was taken and it was resistant to several antibiotics. He was treated initially with Levaquin but had myalgias and then was treated with doxycycline which he finished 2 days ago. He denies improvement and is having swelling to his left calf and thigh. He has been having swelling to both lower extremities for many years and it has worsened over the last few months. He has not been compliant with compression. He has had increased pain especially in the left leg. He has clear yellow drainage and redness without odor or warmth. He is anti-coagulated on coumadin. He has been washing with Dial soap and witch ifrah. He had been using Collagen at times and using Calcium Alginate and covering with ABD pads during October. He was treated with 3M compression and Aquacel Ag. He was referred to the wound center for ongoing treatment. His ulcers have moderate to heavy drainage. He was in the hospital from 11/30/22 until 12/09/22 for treatment of cellulitis and edema. He underwent treatment with Vancomycin and IV lasix and compression. Discharged on 12/09/22. He returned to his assisted living apartment on Tuesday12/21/22. Subjective Subjective Mauricio is a 69-year-old male with longstanding history of chronic venous ulceration to the left lower extremity. Wound culture from 06/15/24 were positive for multiple bacteria and he completed antibiotic treatment. He has had decreased drainage this week. His edema is a little better this week and he has been using ABDs and Aquacel Extra. There has been improvement in his left medial ulcer overall this week. He is using MARCIO and size F Tubigrips for compression. 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 He continues to use his lymphedema pumps but continues to have pain with use of these pumps. Right lateral ulcer is larger and culture was positive for several bacteria and he is completed treatment. Objective Data Objective Data Vital Signs: Vital Signs Temp Pulse Resp BP O2 Del Method 98 F 70 18 100/57 L Room Air 11/02/24 09:58 11/02/24 09:58 11/02/24 09:58 11/02/24 09:58 11/02/24 09:58 Oxygen Delivery Method Room Air Physical Exam Const alert, oriented x3 and no apparent distress General Appearance: cooperative and comfortable HEENT normocephalic and head/scalp atraumatic Lymph Lymphatic: lymphedema moderate Resp normal respiratory effort Effort and Inspection: able to speak in complete sentences Cardio regular rate and regular rhythm Extremity Extremity Narrative: edema significantly increased today in b/l legs General Extremity: edema bilateral lower extremity Details: severe Skin General Skin Exam: venous stasis and dermatitis Wounds: wounds noted Wound Narrative: as in clinical panel, no cellulitis or odor, there is decreased depth, + granulation tissue right lateral ulcer with good granulation and minimal slough Psych mental status grossly normal, thought process normal, cooperative and affect normal Debridement Note Debridement Note Wound debrided: left medial LE ulcer Laterality: Left Type of Debridement: Excisional debridement Anesthesia Used: 5% Lidocaine Gel and Cetacaine Depth: Down to and including healthy tissue and in the subcutaneous layer Percentage of wound debrided: 100 Instrument Used: - (Misonix ultrasonic debridement) Tissue Removed: Yellow slough, devitalized tissue Severity: Fat Layer Exposed Amount of bleeding with debridement: Mild Bleeding Controlled with: Compression and gauze Patient tolerated procedure: Patient tolerated procedure well Post-Debridement Measurements and Additional Note: Post-Debridement Measurements/Treatment WC - Nurse 1 - General Ulcer Assessment Start: 10/12/24 12:12 Freq: Status: Active Protocol: ONDINA Activity Type Activity Date Activity User E-sign Co-sign Detail Recorded Client Recorded Date Recorded By Document 10/12/24 12:16 RB [id number] 10/12/24 12:24 RB Document 10/19/24 09:43 RB [id number] 10/19/24 10:07 RB Document 10/26/24 09:27 RB [id number] 10/26/24 09:49 RB Document 11/02/24 09:58 MT [id number] 11/02/24 10:08 MT 10/12/24 10/19/24 10/26/24 12:16 09:43 09:27 - Today's Visit Information Type of service Follow-up Visit Follow-up Visit Follow-up Visit (Physician/INTEGRATION SOFTWARE DEVELOPER (Physician/INTEGRATION SOFTWARE DEVELOPER (Physician/INTEGRATION SOFTWARE DEVELOPER ) ) ) Arrival Mode Ambulatory, Ambulatory, Ambulatory, Walker Walker Walker Transfer Assistance None None None Accompanied by Patient Identification Verified (Name & Yes Yes Yes ) Patient Requires Transmission-Based No No No Precautions Safety Precautions Vital Signs Temperature (97.8 F-99.1 F) 95.6 F L 96 F L 96.2 F L Temperature Source Temporal Temporal Temporal Pulse Rate (60-100) 65 58 L 69 Pulse Location Monitor Monitor Monitor Respiratory Rate (12-18) 18 18 18 Respiratory rate source Observation Observation Observation Oxygen Delivery Method Blood Pressure (90/60-120/80) 153/84 H 117/67 129/75 H Blood Pressure Mean (mm Hg) 107 83 93 Source Monitor Monitor Monitor Position Semi-Fowlers Semi-Fowlers Sitting Blood Pressure Location Left Arm Left Arm Right Arm History Since Last Visit- (Skip if this is Patient's initial visit) Have you changed medications since your No No No last visit? Any new allergies or adverse reactions No No No Had a fall/change in ADL's that may No No No increase risk of falls Signs or symptoms of abuse and/or No No No neglect since last visit Have you been in the hospital since your No No No last visit? Has dressing in place as prescribed Yes Yes Yes Has compression in place as prescribed Yes Yes Yes Has offloadiing in place as prescribed No N/A N/A Experienced any changes in pain level or No No No management Left Footwear Regular Shoe Regular Shoe Right Footwear Regular Shoe Regular Shoe Pain Scale: 0-10 Numeric Is Patient Pain Free? Yes No Yes LLE -Description Aching -Intensity 6 -Duration (hours) Acute -Pain Behavior Guarding -Pain Aggravating Factors Exercise/ Activity -Alleviating Factors/Interventions Medication -Effectiveness of Alleviating Factor/ Moderately Intervention effective 11/02/24 09:58 WC - Today's Visit Information Type of service Follow-up Visit (Physician/INTEGRATION SOFTWARE DEVELOPER ) Arrival Mode Ambulatory Transfer Assistance Accompanied by SELF Patient Identification Verified (Name & Yes ) Patient Requires Transmission-Based Precautions Safety Precautions Fall Prevention Vital Signs Temperature (97.8 F-99.1 F) 98 F Temperature Source Temporal Pulse Rate (60-100) 70 Pulse Location Monitor Respiratory Rate (12-18) 18 Respiratory rate source Observation Oxygen Delivery Method Room Air Blood Pressure (90/60-120/80) 100/57 L Blood Pressure Mean (mm Hg) 71 Source Monitor Position Sitting Blood Pressure Location Right Arm History Since Last Visit- (Skip if this is Patient's initial visit) Have you changed medications since your last visit? Any new allergies or adverse reactions Had a fall/change in ADL's that may increase risk of falls Signs or symptoms of abuse and/or neglect since last visit Have you been in the hospital since your last visit? Has dressing in place as prescribed Yes Has compression in place as prescribed Yes Has offloadiing in place as prescribed Yes Experienced any changes in pain level or Yes management Left Footwear Diabetic Shoe Right Footwear Diabetic Shoe Pain Scale: 0-10 Numeric Is Patient Pain Free? Yes LLE -Description -Intensity -Duration (hours) -Pain Behavior -Pain Aggravating Factors -Alleviating Factors/Interventions -Effectiveness of Alleviating Factor/ Intervention WC - Nurse 1 - General Ulcer Measurement Start: 10/12/24 12:12 Freq: Status: Active Protocol: Activity Type Activity Date Activity User E-sign Co-sign Detail Recorded Client Recorded Date Recorded By Document 10/12/24 12:16 RB [id number] 10/12/24 12:24 RB Document 10/19/24 09:43 RB [id number] 10/19/24 10:07 RB Document 10/26/24 09:27 RB [id number] 10/26/24 09:49 RB Document 11/02/24 09:58 MT [id number] 11/02/24 10:08 MT 10/12/24 10/19/24 10/26/24 12:16 09:43 09:27 Wound Center Nurse 1 #23 R Lat Leg -Combined with other wound No No No -Current Size (cm) - Length 8.5 6 7.5 -Current Size (cm) - Width 4.2 5 5.5 -Current Size (cm) - Depth 0.1 0.1 0.1 -Total Square Cm 35.70 30 41.25 -Photo Taken No -Tunneling No No No -Undermining/Tunneling No No No -Circular Undermining No No No -Exudate Amt Large Large Medium -Exudate Type Serosanguineous Serosanguineous Serosanguineous -Wound Margin Distinct, Distinct, Distinct, Outline Outline Outline Attached Attached Attached -Granulation Amt Medium (34-66%) Medium (34-66%) Medium (34-66%) -Granulation Quality [place] -Slough/Fibrin Yes Yes Yes -Necrosis Amt Medium (34-66%) Medium (34-66%) Medium (34-66%) -Necrotic Tissue Type Adherent Slough Adherent Slough Adherent Slough -Structure Exposed N/A N/A N/A -Texture (Marie-wound Skin Appearance) Assessed, Assessed, Assessed, Friable Friable Scarring -Moisture (Marie-wound Skin Appearance) Assessed Assessed Assessed -Color (Marie-wound Skin Appearance) No Abnormality Assessed Assessed -Temperature (Marie-wound Skin No Abnormality No Abnormality No Abnormality Appearance) (Pt Warm) (Pt Warm) (Pt Warm) -Tenderness on Palpation (Marie-wound No No No Skin Appearance) -Ulcer Cleansing Wound Cleanser Wound Cleanser Wound Cleanser -Foul Odor after Cleansing No No No -Anesthetic Used 5% Lidocaine 5% Lidocaine 5% Lidocaine Gel Gel Gel #22 R Medial Leg -Combined with other wound No No No -Current Size (cm) - Length 1.5 2 3 -Current Size (cm) - Width 1.4 1.8 2.5 -Current Size (cm) - Depth 0.1 0.1 0.1 -Total Square Cm 2.10 3.6 7.5 -Photo Taken No -Tunneling No No No -Undermining/Tunneling No No No -Circular Undermining No No No -Exudate Amt Large Medium Medium -Exudate Type Serosanguineous Serosanguineous Serosanguineous -Wound Margin Distinct, Distinct, Distinct, Outline Outline Outline Attached Attached Attached -Granulation Amt Medium (34-66%) Medium (34-66%) Medium (34-66%) -Granulation Quality [place] -Slough/Fibrin Yes Yes Yes -Necrosis Amt Small (1-33%) Medium (34-66%) Medium (34-66%) -Necrotic Tissue Type Adherent Slough Adherent Slough Adherent Slough -Structure Exposed N/A N/A N/A -Texture (Marie-wound Skin Appearance) Assessed, Assessed, Assessed, Friable Friable Scarring -Moisture (Marie-wound Skin Appearance) Assessed Assessed Assessed -Color (Marie-wound Skin Appearance) Assessed Assessed Assessed -Temperature (Marie-wound Skin No Abnormality No Abnormality No Abnormality Appearance) (Pt Warm) (Pt Warm) (Pt Warm) -Tenderness on Palpation (Marie-wound No No No Skin Appearance) -Ulcer Cleansing Wound Cleanser Wound Cleanser Wound Cleanser -Foul Odor after Cleansing No No -Anesthetic Used 5% Lidocaine 5% Lidocaine 5% Lidocaine Gel Gel Gel #18 Left medial LE cluster -Combined with other wound No No No -Current Size (cm) - Length 8.5 16 3 -Current Size (cm) - Width 15.5 8 2.5 -Current Size (cm) - Depth 0.2 0.1 0.1 -Total Square Cm 131.75 128 7.5 -Photo Taken -Tunneling No No No -Undermining/Tunneling No No No -Circular Undermining No No No -Exudate Amt Large Medium Medium -Exudate Type Serosanguineous Serosanguineous Serosanguineous -Wound Margin Distinct, Distinct, Distinct, Outline Outline Outline Attached Attached Attached -Granulation Amt Medium (34-66%) Medium (34-66%) Medium (34-66%) -Granulation Quality [place] -Slough/Fibrin Yes Yes Yes -Necrosis Amt Medium (34-66%) Medium (34-66%) Medium (34-66%) -Necrotic Tissue Type Adherent Slough Adherent Slough Adherent Slough -Structure Exposed N/A N/A N/A -Texture (Marie-wound Skin Appearance) Assessed, Assessed, Assessed Friable Friable -Moisture (Marie-wound Skin Appearance) Assessed Assessed Assessed -Color (Marie-wound Skin Appearance) Assessed Assessed Assessed -Temperature (Marie-wound Skin No Abnormality No Abnormality No Abnormality Appearance) (Pt Warm) (Pt Warm) (Pt Warm) -Tenderness on Palpation (Marie-wound No No No Skin Appearance) -Ulcer Cleansing Wound Cleanser Wound Cleanser Wound Cleanser -Foul Odor after Cleansing No No No -Anesthetic Used 5% Lidocaine 5% Lidocaine 5% Lidocaine Gel Gel Gel Lower Limb Edema Present Yes Yes Yes Right Calf (cm) 45 48.5 49 Right Ankle (cm) 30.5 31.2 31 Left Calf (cm) 42 44.5 46 Left Ankle (cm) 31.5 29.5 29.8 11/02/24 09:58 Wound Center Nurse 1 #23 R Lat Leg -Combined with other wound -Current Size (cm) - Length 9 -Current Size (cm) - Width 5.7 -Current Size (cm) - Depth 0.1 -Total Square Cm 51.3 -Photo Taken No -Tunneling No -Undermining/Tunneling No -Circular Undermining No -Exudate Amt Medium -Exudate Type Serosanguineous -Wound Margin Thickened & Rolled Under -Granulation Amt Small (1-33%) -Granulation Quality [place] -Slough/Fibrin -Necrosis Amt Large (67-100%) -Necrotic Tissue Type Adherent Slough -Structure Exposed -Texture (Marie-wound Skin Appearance) Assessed -Moisture (Marie-wound Skin Appearance) Assessed, Maceration -Color (Marie-wound Skin Appearance) Assessed, Erythema, Hemosiderin Staining -Temperature (Marie-wound Skin No Abnormality Appearance) (Pt Warm) -Tenderness on Palpation (Marie-wound No Skin Appearance) -Ulcer Cleansing Soap and Water -Foul Odor after Cleansing No -Anesthetic Used 5% Lidocaine Gel #22 R Medial Leg -Combined with other wound -Current Size (cm) - Length 3.4 -Current Size (cm) - Width 3.0 -Current Size (cm) - Depth 0.1 -Total Square Cm 10.20 -Photo Taken No -Tunneling No -Undermining/Tunneling No -Circular Undermining No -Exudate Amt Small -Exudate Type Serous -Wound Margin Thickened & Rolled Under -Granulation Amt Small (1-33%) -Granulation Quality [place] -Slough/Fibrin -Necrosis Amt Large (67-100%) -Necrotic Tissue Type Adherent Slough -Structure Exposed -Texture (Marie-wound Skin Appearance) Assessed, Localized Edema -Moisture (Marie-wound Skin Appearance) Assessed, Maceration,Dry/ Scaly -Color (Marie-wound Skin Appearance) Assessed -Temperature (Marie-wound Skin No Abnormality Appearance) (Pt Warm) -Tenderness on Palpation (Marie-wound No Skin Appearance) -Ulcer Cleansing Soap and Water -Foul Odor after Cleansing No -Anesthetic Used 5% Lidocaine Gel #18 Left medial LE cluster -Combined with other wound -Current Size (cm) - Length 15 -Current Size (cm) - Width 7.5 -Current Size (cm) - Depth 0.2 -Total Square Cm 112.5 -Photo Taken No -Tunneling No -Undermining/Tunneling No -Circular Undermining No -Exudate Amt Small -Exudate Type Serosanguineous -Wound Margin Thickened & Rolled Under -Granulation Amt Small (1-33%) -Granulation Quality [place] -Slough/Fibrin -Necrosis Amt Large (67-100%) -Necrotic Tissue Type Adherent Slough -Structure Exposed -Texture (Marie-wound Skin Appearance) Assessed -Moisture (Marie-wound Skin Appearance) Assessed -Color (Marie-wound Skin Appearance) Assessed -Temperature (Marie-wound Skin No Abnormality Appearance) (Pt Warm) -Tenderness on Palpation (Marie-wound No Skin Appearance) -Ulcer Cleansing Soap and Water -Foul Odor after Cleansing No -Anesthetic Used 5% Lidocaine Gel Lower Limb Edema Present Right Calf (cm) Right Ankle (cm) Left Calf (cm) Left Ankle (cm) WC - Nurse 2 - General Ulcer CM Notes Start: 10/12/24 12:12 Freq: Status: Active Protocol: Activity Type Activity Date Activity User E-sign Co-sign Detail Recorded Client Recorded Date Recorded By Document 10/12/24 12:16 [id number] 10/12/24 12:30 Document 10/19/24 10:35 [id number] 10/19/24 10:49 Document 10/26/24 10:04 [id number] 10/26/24 10:19 Document 11/02/24 10:21 [id number] 11/02/24 10:40 10/12/24 10/19/24 10/26/24 12:16 10:35 10:04 Wound Center Nurse 2 #23 R Lat Leg -Time 12:17 10:37 10:05 -Correct Patient Yes Yes Yes -Correct Side, Site, Position Yes Yes Yes -Correct Procedure Yes Yes Yes -Procedure Performed Yes Yes Yes -Type of Procedure Debridement Debridement Debridement -Clinical Debridement Subcutaneous Subcutaneous Subcutaneous -Tissue Removed Subcutaneous Subcutaneous Subcutaneous -Post Debridement (cm) - Length 6.2 9.3 6.5 -Post Debridement (cm) - Width 3.8 4.9 4.9 -Post Debridement (cm) - Depth 0.1 0.1 0.1 -Total Square (Post) (cm) 23.56 45.57 31.85 -Area of Debridement (cm) - Length 6.2 9.3 6.5 -Area of Debridement (cm) - Width 3.8 4.9 4.9 -Total Square (Area) (cm) 23.56 45.57 31.85 -Tunneling No No No -Undermining/Tunneling No No No -Circular Undermining No No No -Wound/Ulcer Outcome Not Healed Not Healed Not Healed -Ulcer Cleansing Rinsed/ Rinsed/ Rinsed/ Irrigated with Irrigated with Irrigated with Saline Saline Saline -Foul Odor after Cleansing No No No -Bioengineered Tissue No No -Bleeding Controlled with Pressure Pressure Pressure -Treatment Response Procedure Procedure Procedure Tolerated Well Tolerated Well Tolerated Well -Offloading -Debridement - Subq, 1st 20sq cm No No No #22 R Medial Leg -Time 12:17 10:37 10:06 -Correct Patient Yes Yes Yes -Correct Side, Site, Position Yes Yes Yes -Correct Procedure Yes Yes Yes -Procedure Performed Yes Yes Yes -Type of Procedure Debridement Debridement Debridement -Clinical Debridement Subcutaneous Subcutaneous Subcutaneous -Tissue Removed Subcutaneous Subcutaneous Subcutaneous -Post Debridement (cm) - Length 1.5 2.0 2.3 -Post Debridement (cm) - Width 1.7 1.8 2.2 -Post Debridement (cm) - Depth 0.1 0.1 0.1 -Total Square (Post) (cm) 2.55 3.60 5.06 -Area of Debridement (cm) - Length 1.5 2.0 2.3 -Area of Debridement (cm) - Width 1.7 1.8 2.2 -Total Square (Area) (cm) 2.55 3.60 5.06 -Tunneling No No No -Undermining/Tunneling No No No -Circular Undermining No No No -Wound/Ulcer Outcome Not Healed Not Healed Not Healed -Ulcer Cleansing Rinsed/ Rinsed/ Rinsed/ Irrigated with Irrigated with Irrigated with Saline Saline Saline -Foul Odor after Cleansing No No No -Bioengineered Tissue No No No -Bleeding Controlled with Pressure Pressure Pressure -Treatment Response Procedure Procedure Procedure Tolerated Well Tolerated Well Tolerated Well -Debridement - Subq, 1st 20sq cm No No No #18 Left medial LE cluster -Time 12:17 10:38 10:06 -Correct Patient Yes Yes Yes -Correct Side, Site, Position Yes Yes Yes -Correct Procedure Yes Yes Yes -Procedure Performed Yes Yes Yes -Type of Procedure Debridement Debridement Debridement -Clinical Debridement Subcutaneous Subcutaneous Subcutaneous -Tissue Removed Subcutaneous Subcutaneous Subcutaneous -Post Debridement (cm) - Length 8.3 8.5 8.4 -Post Debridement (cm) - Width 13.2 12.5 13.8 -Post Debridement (cm) - Depth 0.1 0.1 0.1 -Total Square (Post) (cm) 109.56 106.25 115.92 -Area of Debridement (cm) - Length 8.3 8.5 8.4 -Area of Debridement (cm) - Width 13.2 12.5 13.8 -Total Square (Area) (cm) 109.56 106.25 115.92 -Tunneling No No No -Undermining/Tunneling No No No -Circular Undermining No No No -Wound/Ulcer Outcome Not Healed Not Healed Not Healed -Ulcer Cleansing Rinsed/ Rinsed/ Rinsed/ Irrigated with Irrigated with Irrigated with Saline Saline Saline -Foul Odor after Cleansing No No No -Bioengineered Tissue No No No -Bleeding Controlled with Pressure Pressure Pressure -Treatment Response Procedure Procedure Procedure Tolerated Well Tolerated Well Tolerated Well -Offloading -Debridement - Subq, 1st 20sq cm Yes Yes Yes -Debridement, SubQ, ea addt'l 20sq cm 6 7 7 or part thereof Pain Scale: 0-10 Numeric Is Patient Pain Free? Yes Yes Yes 11/02/24 10:21 Wound Center Nurse 2 #23 R Lat Leg -Time 10:28 -Correct Patient Yes -Correct Side, Site, Position Yes -Correct Procedure Yes -Procedure Performed Yes -Type of Procedure Debridement -Clinical Debridement Subcutaneous -Tissue Removed Subcutaneous -Post Debridement (cm) - Length 9.5 -Post Debridement (cm) - Width 5.0 -Post Debridement (cm) - Depth 0.1 -Total Square (Post) (cm) 47.50 -Area of Debridement (cm) - Length 9.5 -Area of Debridement (cm) - Width 5.0 -Total Square (Area) (cm) 47.50 -Tunneling No -Undermining/Tunneling No -Circular Undermining No -Wound/Ulcer Outcome Not Healed -Ulcer Cleansing Rinsed/ Irrigated with Saline -Foul Odor after Cleansing No -Bioengineered Tissue No -Bleeding Controlled with Pressure -Treatment Response -Offloading No -Debridement - Subq, 1st 20sq cm No #22 R Medial Leg -Time 10:29 -Correct Patient Yes -Correct Side, Site, Position Yes -Correct Procedure Yes -Procedure Performed Yes -Type of Procedure Debridement -Clinical Debridement Subcutaneous -Tissue Removed Subcutaneous -Post Debridement (cm) - Length 3.0 -Post Debridement (cm) - Width 2.5 -Post Debridement (cm) - Depth 0.1 -Total Square (Post) (cm) 7.50 -Area of Debridement (cm) - Length 3.0 -Area of Debridement (cm) - Width 2.5 -Total Square (Area) (cm) 7.50 -Tunneling No -Undermining/Tunneling No -Circular Undermining No -Wound/Ulcer Outcome Not Healed -Ulcer Cleansing Rinsed/ Irrigated with Saline -Foul Odor after Cleansing No -Bioengineered Tissue No -Bleeding Controlled with Pressure -Treatment Response Procedure Tolerated Well -Debridement - Subq, 1st 20sq cm No #18 Left medial LE cluster -Time 10:30 -Correct Patient Yes -Correct Side, Site, Position Yes -Correct Procedure Yes -Procedure Performed Yes -Type of Procedure Debridement -Clinical Debridement Subcutaneous -Tissue Removed Subcutaneous -Post Debridement (cm) - Length 8.5 -Post Debridement (cm) - Width 14.0 -Post Debridement (cm) - Depth 0.1 -Total Square (Post) (cm) 119.00 -Area of Debridement (cm) - Length 8.5 -Area of Debridement (cm) - Width 14.0 -Total Square (Area) (cm) 119.00 -Tunneling No -Undermining/Tunneling No -Circular Undermining No -Wound/Ulcer Outcome Not Healed -Ulcer Cleansing Rinsed/ Irrigated with Saline -Foul Odor after Cleansing No -Bioengineered Tissue No -Bleeding Controlled with Pressure -Treatment Response Procedure Tolerated Well -Offloading No -Debridement - Subq, 1st 20sq cm Yes -Debridement, SubQ, ea addt'l 20sq cm 8 or part thereof Pain Scale: 0-10 Numeric Is Patient Pain Free? Yes WC - Nurse 3 - General Ulcer D/C NN Start: 10/12/24 12:12 Freq: Status: Active Protocol: Activity Type Activity Date Activity User E-sign Co-sign Detail Recorded Client Recorded Date Recorded By Document 10/12/24 12:36 KW [id number] 10/12/24 12:37 KW Document 10/19/24 11:28 RB [id number] 10/19/24 11:30 RB Document 10/26/24 12:42 KW [id number] 10/26/24 12:48 KW Document 11/02/24 10:59 AR [id number] 11/02/24 11:16 MT 10/12/24 10/19/24 10/26/24 12:36 11:28 12:42 Wound Care Center Nurse 3 #23 R Lat Leg -Ulcer Cleansing Rinsed/ Irrigated with Saline -Primary Dressing Applied Aquacel AG 4x4 Aquacel AG 4x4 -Primary Dressing Applied Aquacel AG 4x4 -Other Dressing abd -Primary Dressing Covered/Secured with Dry Gauze & Dry Gauze,Dry Dry Gauze & Roll Gauze, Gauze & Roll Roll Gauze, Secured with Gauze,Secured Secured with Tape with Tape Tape -Aquacel Extra -Aquacel AG 4x4 1 1 1 #22 R Medial Leg -Ulcer Cleansing Rinsed/ Irrigated with Saline -Primary Dressing Applied Aquacel AG 4x4 -Other Dressing aquacel ag aquacel AG/abd -Primary Dressing Covered/Secured with Dry Gauze Dry Gauze,Dry Dry Gauze Gauze & Roll Gauze,Secured with Tape -Aquacel AG 4x4 1 #18 Left medial LE cluster -Ulcer Cleansing Rinsed/ Irrigated with Saline -Primary Dressing Applied Fibracol Plus Fibracol Plus 4x4 4x4 -Primary Dressing Applied Aquacel Extra, Fibracol Plus 4x4 -Primary Dressing Covered/Secured with Dry Gauze & Roll Gauze, Secured with Tape -Aquacel Extra 1 -Aquacel AG 4x4 -Fibracol Plus 4x4 1 2 1 wili -Tubular Bandage Single Layer -Size of Tubigrip Used Size F -Size F ($) 2 -Other marcio Right -Compression Wrap Marcio Wrap -Tubular Bandage Single Layer Single Layer -Size of Tubigrip Used Size F Size F -Size F ($) 1 1 Left -Compression Wrap Marcio Wrap -Tubular Bandage Single Layer Single Layer -Size of Tubigrip Used Size F Size F -Size F ($) 1 1 Pain Scale: 0-10 Numeric Is Patient Pain Free? Yes Yes Yes WC - Visit Discharge Discharge Condition Stable Stable Stable Ambulatory Status Ambulatory, Ambulatory, Ambulatory Walker Walker Transportation Private Auto Private Auto Medication Reconcilliation completed & No No No provided to patient/care provider Clinical Summary of Care Provided Yes Yes Yes 11/02/24 10:59 [facility] Nurse 3 #23 R Lat Leg -Ulcer Cleansing -Primary Dressing Applied -Primary Dressing Applied Aquacel Extra -Other Dressing -Primary Dressing Covered/Secured with -Aquacel Extra 2 -Aquacel AG 4x4 #22 R Medial Leg -Ulcer Cleansing -Primary Dressing Applied -Other Dressing -Primary Dressing Covered/Secured with -Aquacel AG 4x4 #18 Left medial LE cluster -Ulcer Cleansing -Primary Dressing Applied -Primary Dressing Applied Aquacel AG 4x4, Fibracol Plus 4x4 -Primary Dressing Covered/Secured with -Aquacel Extra -Aquacel AG 4x4 1 -Fibracol Plus 4x4 1 wili -Tubular Bandage -Size of Tubigrip Used -Size F ($) -Other Right -Compression Wrap -Tubular Bandage Single Layer -Size of Tubigrip Used Size F -Size F ($) 1 Left -Compression Wrap -Tubular Bandage Single Layer -Size of Tubigrip Used Size F -Size F ($) 1 Pain Scale: 0-10 Numeric Is Patient Pain Free? Yes WC - Visit Discharge Discharge Condition Ambulatory Status Transportation Medication Reconcilliation completed & provided to patient/care provider Clinical Summary of Care Provided Additional Wound Wound debrided: right lateral leg Laterality: Right Type of Debridement: Excisional debridement Anesthesia Used: 5% Lidocaine Gel and Cetacaine Depth: Down to and including healthy tissue and in the subcutaneous layer Percentage of wound debrided: 100 Instrument Used: - (Misonix ultrasonic debridement) Tissue Removed: Yellow slough, devitalized tissue Severity: Fat Layer Exposed Amount of bleeding with debridement: Mild Bleeding Controlled with: Compression and gauze Patient tolerated procedure: Patient tolerated procedure well Additional Wound Wound debrided: right medial leg Laterality: Right Type of Debridement: Excisional debridement Anesthesia Used: 5% Lidocaine Gel and Cetacaine Depth: Down to and including healthy tissue and in the subcutaneous layer Percentage of wound debrided: 100 Instrument Used: - (Misonix ultrasonic debridement) Tissue Removed: Yellow slough, devitalized tissue Severity: Fat Layer Exposed Amount of bleeding with debridement: Mild Bleeding Controlled with: Compression and gauze Patient tolerated procedure: Patient tolerated procedure well Assessment/Plan Assessment/Plan (1) Lymphedema: CODE(S): I89.0 - Lymphedema, not elsewhere classified (2) Hypertension: CODE(S): I10 - Essential (primary) hypertension QUALIFIERS: Hypertension type: primary hypertension Qualified Code(s): I10 - Essential (primary) hypertension (3) Hyperlipidemia: CODE(S): E78.5 - Hyperlipidemia, unspecified QUALIFIERS: Hyperlipidemia type: mixed hyperlipidemia Qualified Code(s): E78.2 - Mixed hyperlipidemia (4) History of DVT (deep vein thrombosis): CODE(S): Z86.718 - Personal history of other venous thrombosis and embolism (5) Venous insufficiency (chronic) (peripheral): CODE(S): I87.2 - Venous insufficiency (chronic) (peripheral) (6) Venous ulcer of left lower extremity with varicose veins: CODE(S): I83.029 - Varicose veins of left lower extremity with ulcer of unspecified site (7) Edema: CODE(S): R60.9 - Edema, unspecified QUALIFIERS: Edema type: unspecified Qualified Code(s): R60.9 - Edema, unspecified (8) Venous ulcer of right lower extremity with varicose veins: CODE(S): I83.019 - Varicose veins of right lower extremity with ulcer of unspecified site; L97.919 - Non-pressure chronic ulcer of unspecified part of right lower leg with unspecified severity (9) Ulcer of left lower extremity with fat layer exposed: CODE(S): L97.922 - Non-pressure chronic ulcer of unspecified part of left lower leg with fat layer exposed PLAN: Plan Evaluation and debridement of left medial LE ulcer performed today in clinic as annotated above. At home wound-care instructions: Will have him use Fibracol changed daily to left medial LE. Right lateral LE will have him use Aquacel Ag changed daily. Continue compression with F tubigrips b/l. Due to his chronic lymphedema and being unable to don traditional compression stockings and the presence of venous ulcers on his LE b/l, it is medically necessary for him to have Circaid compression garments. These are being ordered. I suspect he is not very compliant with his lymphedema pumps and not getting adequate compression with tubigrips. Due to the delayed progress in wound healing of his venous ulcers, we discussed applying for advanced wound healing product for healing his ulcer. Due to the size of his ulcer, Theraskin application approval was requested from his insurance as it is medically necessary for salvaging his limb and healing his ulcer. He underwent 2 applications of Theraskin to this ulcer. Since application of Theraskin he has had much improvement in epithelialization of his ulcer even though the overall size is not significantly changed there is progress. Off-loading: The patient was instructed to avoid pressure and friction on the affected areas. Reposition every 2 hours at minimum. Avoid prolonged standing and/or dangling of legs. When seated, feet should be elevated at chest level. Frequent ambulation is encouraged. Encouraged lymphedema pump use. Diet: Patient encouraged to increase protein intake while taking caution to avoid high carbohydrate and/or sugar intake. Labs/cultures/imaging: Wound culture showed Pseudomonas, Escherichia hermannii, Raoultella planticola, Vancomycin Resist. E. faecalis, Alcaligenes faecalis ssp faeca, Staphylococcus cohnii urealyti and anaerobic bacteria on 06/15/24 and he completed on Levofloxacin and Augmentin. Wound culture taken today on right lateral ulcer which showed Raoultella planticola, Staph hemolyticus, staph epidermidis and morganella morganii but no anaeroobic bacteria, Levofloxacin and doxycyline were prescribed based on culture results. Labs ordered 10/19/2024. Vitamin D was low A1C 5.4% Follow-up: Return in 1 week for wound care follow up and have dressing changed by home health Tuesday and Tuesday. Return sooner or report to the emergency room should symptoms worsen, or new symptoms arise. Note: [employer] speech recognition button spindler software was used to create portions of this document. Sound-alike and misspelled words, as well as other button spindler errors may be contained in the documentation.
[2024-11-09 09:48] VITALS: BP 129/71; PULSE 73; RESP 18; TEMP 35.4
--- NOTE | 2024-11-09 15:33 | PCM.WC.PN ---
History of Present Illness Date of Service: 11/09/24 Chief Complaint: venous ulcers of left lower extremity History of Wound: Mauricio is a 69 yo gentleman who is here today for evaluation of ulcers to to his bilateral lower legs. He has been treated multiple times in the past at the wound healing center for similar ulcers. The left LE ulcer started after he developed increased swelling and blisters of left leg in October and the right leg started sometime at the end of October. He was seen at PCP's office a culture was taken and it was resistant to several antibiotics. He was treated initially with Levaquin but had myalgias and then was treated with doxycycline which he finished 2 days ago. He denies improvement and is having swelling to his left calf and thigh. He has been having swelling to both lower extremities for many years and it has worsened over the last few months. He has not been compliant with compression. He has had increased pain especially in the left leg. He has clear yellow drainage and redness without odor or warmth. He is anti-coagulated on coumadin. He has been washing with Dial soap and witch ifrah. He had been using Collagen at times and using Calcium Alginate and covering with ABD pads during October. He was treated with 3M compression and Aquacel Ag. He was referred to the wound center for ongoing treatment. His ulcers have moderate to heavy drainage. He was in the hospital from 11/30/22 until 12/09/22 for treatment of cellulitis and edema. He underwent treatment with Vancomycin and IV lasix and compression. Discharged on 12/09/22. He returned to his assisted living apartment on Tuesday12/21/22. Subjective Subjective Mauricio is a 69-year-old male with longstanding history of chronic venous ulceration to the left lower extremity. Wound culture from 06/15/24 were positive for multiple bacteria and he completed antibiotic treatment. He has had decreased drainage this week. His edema is a little better this week and he has been using ABDs and Aquacel Extra. There has been improvement in his left medial ulcer overall this week. He is using MARCIO and size F Tubigrips for compression. 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 He continues to use his lymphedema pumps but continues to have pain with use of these pumps. Right lateral ulcer is larger and culture was positive for several bacteria and he is completed treatment. Objective Data Objective Data Vital Signs: Vital Signs Temp Pulse Resp BP O2 Del Method 95.7 F L 73 18 129/71 H Room Air 11/09/24 09:48 11/09/24 09:48 11/09/24 09:48 11/09/24 09:48 11/02/24 09:58 Oxygen Delivery Method Room Air Physical Exam Const alert, oriented x3 and no apparent distress General Appearance: cooperative and comfortable HEENT normocephalic and head/scalp atraumatic Lymph Lymphatic: lymphedema moderate Resp normal respiratory effort Effort and Inspection: able to speak in complete sentences Cardio regular rate and regular rhythm Extremity Extremity Narrative: edema significantly increased today in b/l legs General Extremity: edema bilateral lower extremity Details: severe Skin General Skin Exam: venous stasis and dermatitis Wounds: wounds noted Wound Narrative: as in clinical panel, no cellulitis or odor, there is decreased depth, + granulation tissue right lateral ulcer with good granulation and minimal slough Psych mental status grossly normal, thought process normal, cooperative and affect normal Debridement Note Debridement Note Wound debrided: left medial LE ulcer Laterality: Left Type of Debridement: Excisional debridement Anesthesia Used: 5% Lidocaine Gel and Cetacaine Depth: Down to and including healthy tissue and in the subcutaneous layer Percentage of wound debrided: 100 Instrument Used: - (Misonix ultrasonic debridement) Tissue Removed: Yellow slough, devitalized tissue Severity: Fat Layer Exposed Amount of bleeding with debridement: Mild Bleeding Controlled with: Compression and gauze Patient tolerated procedure: Patient tolerated procedure well Post-Debridement Measurements and Additional Note: Post-Debridement Measurements/Treatment WC - Nurse 1 - General Ulcer Assessment Start: 10/12/24 12:12 Freq: Status: Active Protocol: ONDINA Activity Type Activity Date Activity User E-sign Co-sign Detail Recorded Client Recorded Date Recorded By Document 10/12/24 12:16 RB [id number] 10/12/24 12:24 RB Document 10/19/24 09:43 RB [id number] 10/19/24 10:07 RB Document 10/26/24 09:27 RB [id number] 10/26/24 09:49 RB Document 11/02/24 09:58 MT [id number] 11/02/24 10:08 MT Document 11/09/24 09:48 RB [id number] 11/09/24 09:54 RB 10/12/24 10/19/24 10/26/24 12:16 09:43 09:27 - Today's Visit Information Type of service Follow-up Visit Follow-up Visit Follow-up Visit (Physician/AMBULATORY SERVICE REPRESENTATIVE (Physician/AMBULATORY SERVICE REPRESENTATIVE (Physician/AMBULATORY SERVICE REPRESENTATIVE ) ) ) Arrival Mode Ambulatory, Ambulatory, Ambulatory, Walker Walker Walker Transfer Assistance None None None Accompanied by Patient Identification Verified (Name & Yes Yes Yes ) Patient Requires Transmission-Based No No No Precautions Safety Precautions Vital Signs Temperature (97.8 F-99.1 F) 95.6 F L 96 F L 96.2 F L Temperature Source Temporal Temporal Temporal Pulse Rate (60-100) 65 58 L 69 Pulse Location Monitor Monitor Monitor Respiratory Rate (12-18) 18 18 18 Respiratory rate source Observation Observation Observation Oxygen Delivery Method Blood Pressure (90/60-120/80) 153/84 H 117/67 129/75 H Blood Pressure Mean (mm Hg) 107 83 93 Source Monitor Monitor Monitor Position Semi-Fowlers Semi-Fowlers Sitting Blood Pressure Location Left Arm Left Arm Right Arm History Since Last Visit- (Skip if this is Patient's initial visit) Have you changed medications since your No No No last visit? Any new allergies or adverse reactions No No No Had a fall/change in ADL's that may No No No increase risk of falls Signs or symptoms of abuse and/or No No No neglect since last visit Have you been in the hospital since your No No No last visit? Has dressing in place as prescribed Yes Yes Yes Has compression in place as prescribed Yes Yes Yes Has offloadiing in place as prescribed No N/A N/A Experienced any changes in pain level or No No No management Left Footwear Regular Shoe Regular Shoe Right Footwear Regular Shoe Regular Shoe Pain Scale: 0-10 Numeric Is Patient Pain Free? Yes No Yes LLE -Description Aching -Intensity 6 -Duration (hours) Acute -Pain Behavior Guarding -Pain Aggravating Factors Exercise/ Activity -Alleviating Factors/Interventions Medication -Effectiveness of Alleviating Factor/ Moderately Intervention effective 11/02/24 11/09/24 09:58 09:48 - Today's Visit Information Type of service Follow-up Visit Follow-up Visit (Physician/AMBULATORY SERVICE REPRESENTATIVE (Physician/AMBULATORY SERVICE REPRESENTATIVE ) ) Arrival Mode Ambulatory Ambulatory, Walker Transfer Assistance None Accompanied by SELF Patient Identification Verified (Name & Yes Yes ) Patient Requires Transmission-Based No Precautions Safety Precautions Fall Prevention Vital Signs Temperature (97.8 F-99.1 F) 98 F 95.7 F L Temperature Source Temporal Temporal Pulse Rate (60-100) 70 73 Pulse Location Monitor Monitor Respiratory Rate (12-18) 18 18 Respiratory rate source Observation Observation Oxygen Delivery Method Room Air Blood Pressure (90/60-120/80) 100/57 L 129/71 H Blood Pressure Mean (mm Hg) 71 90 Source Monitor Monitor Position Sitting Semi-Fowlers Blood Pressure Location Right Arm Left Arm History Since Last Visit- (Skip if this is Patient's initial visit) Have you changed medications since your No last visit? Any new allergies or adverse reactions No Had a fall/change in ADL's that may No increase risk of falls Signs or symptoms of abuse and/or No neglect since last visit Have you been in the hospital since your No last visit? Has dressing in place as prescribed Yes Yes Has compression in place as prescribed Yes Yes Has offloadiing in place as prescribed Yes N/A Experienced any changes in pain level or Yes No management Left Footwear Diabetic Shoe Regular Shoe Right Footwear Diabetic Shoe Regular Shoe Pain Scale: 0-10 Numeric Is Patient Pain Free? Yes No LLE -Description Aching -Intensity 5 -Duration (hours) Chronic -Pain Behavior Irritability, Withdrawal from Touch -Pain Aggravating Factors Exercise/ Activity -Alleviating Factors/Interventions Medication -Effectiveness of Alleviating Factor/ Moderately Intervention effective WC - Nurse 1 - General Ulcer Measurement Start: 10/12/24 12:12 Freq: Status: Active Protocol: Activity Type Activity Date Activity User E-sign Co-sign Detail Recorded Client Recorded Date Recorded By Document 10/12/24 12:16 RB [id number] 10/12/24 12:24 RB Document 10/19/24 09:43 RB [id number] 10/19/24 10:07 RB Document 10/26/24 09:27 RB [id number] 10/26/24 09:49 RB Document 11/02/24 09:58 MT [id number] 11/02/24 10:08 MT Document 11/09/24 09:48 RB [id number] 11/09/24 09:54 RB 10/12/24 10/19/24 10/26/24 12:16 09:43 09:27 Wound Center Nurse 1 #23 R Lat Leg -Combined with other wound No No No -Current Size (cm) - Length 8.5 6 7.5 -Current Size (cm) - Width 4.2 5 5.5 -Current Size (cm) - Depth 0.1 0.1 0.1 -Total Square Cm 35.70 30 41.25 -Photo Taken No -Tunneling No No No -Undermining/Tunneling No No No -Circular Undermining No No No -Exudate Amt Large Large Medium -Exudate Type Serosanguineous Serosanguineous Serosanguineous -Wound Margin Distinct, Distinct, Distinct, Outline Outline Outline Attached Attached Attached -Granulation Amt Medium (34-66%) Medium (34-66%) Medium (34-66%) -Granulation Quality [place],Red [place] -Slough/Fibrin Yes Yes Yes -Necrosis Amt Medium (34-66%) Medium (34-66%) Medium (34-66%) -Necrotic Tissue Type Adherent Slough Adherent Slough Adherent Slough -Structure Exposed N/A N/A N/A -Texture (Marie-wound Skin Appearance) Assessed, Assessed, Assessed, Friable Friable Scarring -Moisture (Marie-wound Skin Appearance) Assessed Assessed Assessed -Color (Marie-wound Skin Appearance) No Abnormality Assessed Assessed -Temperature (Marie-wound Skin No Abnormality No Abnormality No Abnormality Appearance) (Pt Warm) (Pt Warm) (Pt Warm) -Tenderness on Palpation (Marie-wound No No No Skin Appearance) -Ulcer Cleansing Wound Cleanser Wound Cleanser Wound Cleanser -Foul Odor after Cleansing No No No -Anesthetic Used 5% Lidocaine 5% Lidocaine 5% Lidocaine Gel Gel Gel #22 R Medial Leg -Combined with other wound No No No -Current Size (cm) - Length 1.5 2 3 -Current Size (cm) - Width 1.4 1.8 2.5 -Current Size (cm) - Depth 0.1 0.1 0.1 -Total Square Cm 2.10 3.6 7.5 -Photo Taken No -Tunneling No No No -Undermining/Tunneling No No No -Circular Undermining No No No -Exudate Amt Large Medium Medium -Exudate Type Serosanguineous Serosanguineous Serosanguineous -Wound Margin Distinct, Distinct, Distinct, Outline Outline Outline Attached Attached Attached -Granulation Amt Medium (34-66%) Medium (34-66%) Medium (34-66%) -Granulation Quality [place] -Slough/Fibrin Yes Yes Yes -Necrosis Amt Small (1-33%) Medium (34-66%) Medium (34-66%) -Necrotic Tissue Type Adherent Slough Adherent Slough Adherent Slough -Structure Exposed N/A N/A N/A -Texture (Marie-wound Skin Appearance) Assessed, Assessed, Assessed, Friable Friable Scarring -Moisture (Marie-wound Skin Appearance) Assessed Assessed Assessed -Color (Marie-wound Skin Appearance) Assessed Assessed Assessed -Temperature (Marie-wound Skin No Abnormality No Abnormality No Abnormality Appearance) (Pt Warm) (Pt Warm) (Pt Warm) -Tenderness on Palpation (Marie-wound No No No Skin Appearance) -Ulcer Cleansing Wound Cleanser Wound Cleanser Wound Cleanser -Foul Odor after Cleansing No No -Anesthetic Used 5% Lidocaine 5% Lidocaine 5% Lidocaine Gel Gel Gel #18 Left medial LE cluster -Combined with other wound No No No -Current Size (cm) - Length 8.5 16 3 -Current Size (cm) - Width 15.5 8 2.5 -Current Size (cm) - Depth 0.2 0.1 0.1 -Total Square Cm 131.75 128 7.5 -Photo Taken -Tunneling No No No -Undermining/Tunneling No No No -Circular Undermining No No No -Exudate Amt Large Medium Medium -Exudate Type Serosanguineous Serosanguineous Serosanguineous -Wound Margin Distinct, Distinct, Distinct, Outline Outline Outline Attached Attached Attached -Granulation Amt Medium (34-66%) Medium (34-66%) Medium (34-66%) -Granulation Quality [place] -Slough/Fibrin Yes Yes Yes -Necrosis Amt Medium (34-66%) Medium (34-66%) Medium (34-66%) -Necrotic Tissue Type Adherent Slough Adherent Slough Adherent Slough -Structure Exposed N/A N/A N/A -Texture (Marie-wound Skin Appearance) Assessed, Assessed, Assessed Friable Friable -Moisture (Marie-wound Skin Appearance) Assessed Assessed Assessed -Color (Marie-wound Skin Appearance) Assessed Assessed Assessed -Temperature (Marie-wound Skin No Abnormality No Abnormality No Abnormality Appearance) (Pt Warm) (Pt Warm) (Pt Warm) -Tenderness on Palpation (Marie-wound No No No Skin Appearance) -Ulcer Cleansing Wound Cleanser Wound Cleanser Wound Cleanser -Foul Odor after Cleansing No No No -Anesthetic Used 5% Lidocaine 5% Lidocaine 5% Lidocaine Gel Gel Gel Lower Limb Edema Present Yes Yes Yes Right Calf (cm) 45 48.5 49 Right Ankle (cm) 30.5 31.2 31 Left Calf (cm) 42 44.5 46 Left Ankle (cm) 31.5 29.5 29.8 11/02/24 11/09/24 09:58 09:48 Wound Center Nurse 1 #23 R Lat Leg -Combined with other wound No -Current Size (cm) - Length 9 10 -Current Size (cm) - Width 5.7 7 -Current Size (cm) - Depth 0.1 0.1 -Total Square Cm 51.3 70 -Photo Taken No -Tunneling No No -Undermining/Tunneling No No -Circular Undermining No No -Exudate Amt Medium Large -Exudate Type Serosanguineous Serosanguineous -Wound Margin Thickened & Distinct, Rolled Under Outline Attached -Granulation Amt Small (1-33%) Medium (34-66%) -Granulation Quality Pale,[place] -Slough/Fibrin Yes -Necrosis Amt Large (67-100%) Medium (34-66%) -Necrotic Tissue Type Adherent Slough Adherent Slough -Structure Exposed N/A -Texture (Marie-wound Skin Appearance) Assessed Assessed, Excoriation, Scarring -Moisture (Marie-wound Skin Appearance) Assessed, Assessed Maceration -Color (Marie-wound Skin Appearance) Assessed, Assessed Erythema, Hemosiderin Staining -Temperature (Marie-wound Skin No Abnormality No Abnormality Appearance) (Pt Warm) (Pt Warm) -Tenderness on Palpation (Marie-wound No No Skin Appearance) -Ulcer Cleansing Soap and Water Wound Cleanser -Foul Odor after Cleansing No No -Anesthetic Used 5% Lidocaine 5% Lidocaine Gel Gel #22 R Medial Leg -Combined with other wound No -Current Size (cm) - Length 3.4 12 -Current Size (cm) - Width 3.0 9 -Current Size (cm) - Depth 0.1 0.1 -Total Square Cm 10.20 108 -Photo Taken No -Tunneling No No -Undermining/Tunneling No No -Circular Undermining No No -Exudate Amt Small Medium -Exudate Type Serous Serosanguineous -Wound Margin Thickened & Distinct, Rolled Under Outline Attached -Granulation Amt Small (1-33%) Medium (34-66%) -Granulation Quality Pale,[place] -Slough/Fibrin Yes -Necrosis Amt Large (67-100%) Medium (34-66%) -Necrotic Tissue Type Adherent Slough Adherent Slough -Structure Exposed N/A -Texture (Marie-wound Skin Appearance) Assessed, Assessed, Localized Edema Friable, Scarring -Moisture (Marie-wound Skin Appearance) Assessed, Assessed Maceration,Dry/ Scaly -Color (Marie-wound Skin Appearance) Assessed Assessed -Temperature (Marie-wound Skin No Abnormality No Abnormality Appearance) (Pt Warm) (Pt Warm) -Tenderness on Palpation (Marie-wound No No Skin Appearance) -Ulcer Cleansing Soap and Water Wound Cleanser -Foul Odor after Cleansing No No -Anesthetic Used 5% Lidocaine 5% Lidocaine Gel Gel #18 Left medial LE cluster -Combined with other wound No -Current Size (cm) - Length 15 9 -Current Size (cm) - Width 7.5 17 -Current Size (cm) - Depth 0.2 0.2 -Total Square Cm 112.5 153 -Photo Taken No -Tunneling No No -Undermining/Tunneling No No -Circular Undermining No No -Exudate Amt Small Medium -Exudate Type Serosanguineous Serosanguineous -Wound Margin Thickened & Distinct, Rolled Under Outline Attached -Granulation Amt Small (1-33%) Medium (34-66%) -Granulation Quality Pale,[place] -Slough/Fibrin Yes -Necrosis Amt Large (67-100%) Medium (34-66%) -Necrotic Tissue Type Adherent Slough Adherent Slough -Structure Exposed N/A -Texture (Marie-wound Skin Appearance) Assessed Assessed, Excoriation -Moisture (Marie-wound Skin Appearance) Assessed Assessed -Color (Marie-wound Skin Appearance) Assessed Assessed -Temperature (Marie-wound Skin No Abnormality No Abnormality Appearance) (Pt Warm) (Pt Warm) -Tenderness on Palpation (Marie-wound No No Skin Appearance) -Ulcer Cleansing Soap and Water Wound Cleanser -Foul Odor after Cleansing No No -Anesthetic Used 5% Lidocaine 5% Lidocaine Gel Gel Lower Limb Edema Present Right Calf (cm) Right Ankle (cm) Left Calf (cm) Left Ankle (cm) WC - Nurse 2 - General Ulcer CM Notes Start: 10/12/24 12:12 Freq: Status: Active Protocol: Activity Type Activity Date Activity User E-sign Co-sign Detail Recorded Client Recorded Date Recorded By Document 10/12/24 12:16 [id number] 10/12/24 12:30 Document 10/19/24 10:35 [id number] 10/19/24 10:49 GM Document 10/26/24 10:04 [id number] 10/26/24 10:19 Document 11/02/24 10:21 [id number] 11/02/24 10:40 Document 11/09/24 10:04 [id number] 11/09/24 10:22 10/12/24 10/19/24 10/26/24 12:16 10:35 10:04 Wound Center Nurse 2 #24 Left Lateral Leg -Time -Correct Patient -Correct Side, Site, Position -Correct Procedure -Procedure Performed -Type of Procedure -Clinical Debridement -Tissue Removed -Post Debridement (cm) - Length -Post Debridement (cm) - Width -Post Debridement (cm) - Depth -Total Square (Post) (cm) -Area of Debridement (cm) - Length -Area of Debridement (cm) - Width -Total Square (Area) (cm) -Tunneling -Undermining/Tunneling -Circular Undermining -Wound/Ulcer Outcome -Ulcer Cleansing -Foul Odor after Cleansing -Bioengineered Tissue -Bleeding Controlled with -Treatment Response -Debridement - Subq, 1st 20sq cm -Debridement, SubQ, ea addt'l 20sq cm or part thereof #23 R Lat Leg -Time 12:17 10:37 10:05 -Correct Patient Yes Yes Yes -Correct Side, Site, Position Yes Yes Yes -Correct Procedure Yes Yes Yes -Procedure Performed Yes Yes Yes -Type of Procedure Debridement Debridement Debridement -Clinical Debridement Subcutaneous Subcutaneous Subcutaneous -Tissue Removed Subcutaneous Subcutaneous Subcutaneous -Post Debridement (cm) - Length 6.2 9.3 6.5 -Post Debridement (cm) - Width 3.8 4.9 4.9 -Post Debridement (cm) - Depth 0.1 0.1 0.1 -Total Square (Post) (cm) 23.56 45.57 31.85 -Area of Debridement (cm) - Length 6.2 9.3 6.5 -Area of Debridement (cm) - Width 3.8 4.9 4.9 -Total Square (Area) (cm) 23.56 45.57 31.85 -Tunneling No No No -Undermining/Tunneling No No No -Circular Undermining No No No -Wound/Ulcer Outcome Not Healed Not Healed Not Healed -Ulcer Cleansing Rinsed/ Rinsed/ Rinsed/ Irrigated with Irrigated with Irrigated with Saline Saline Saline -Foul Odor after Cleansing No No No -Bioengineered Tissue No No -Bleeding Controlled with Pressure Pressure Pressure -Treatment Response Procedure Procedure Procedure Tolerated Well Tolerated Well Tolerated Well -Offloading -Debridement - Subq, 1st 20sq cm No No No #22 R Medial Leg -Time 12:17 10:37 10:06 -Correct Patient Yes Yes Yes -Correct Side, Site, Position Yes Yes Yes -Correct Procedure Yes Yes Yes -Procedure Performed Yes Yes Yes -Type of Procedure Debridement Debridement Debridement -Clinical Debridement Subcutaneous Subcutaneous Subcutaneous -Tissue Removed Subcutaneous Subcutaneous Subcutaneous -Post Debridement (cm) - Length 1.5 2.0 2.3 -Post Debridement (cm) - Width 1.7 1.8 2.2 -Post Debridement (cm) - Depth 0.1 0.1 0.1 -Total Square (Post) (cm) 2.55 3.60 5.06 -Area of Debridement (cm) - Length 1.5 2.0 2.3 -Area of Debridement (cm) - Width 1.7 1.8 2.2 -Total Square (Area) (cm) 2.55 3.60 5.06 -Tunneling No No No -Undermining/Tunneling No No No -Circular Undermining No No No -Wound/Ulcer Outcome Not Healed Not Healed Not Healed -Ulcer Cleansing Rinsed/ Rinsed/ Rinsed/ Irrigated with Irrigated with Irrigated with Saline Saline Saline -Foul Odor after Cleansing No No No -Bioengineered Tissue No No No -Bleeding Controlled with Pressure Pressure Pressure -Treatment Response Procedure Procedure Procedure Tolerated Well Tolerated Well Tolerated Well -Debridement - Subq, 1st 20sq cm No No No #18 Left medial LE cluster -Time 12:17 10:38 10:06 -Correct Patient Yes Yes Yes -Correct Side, Site, Position Yes Yes Yes -Correct Procedure Yes Yes Yes -Procedure Performed Yes Yes Yes -Type of Procedure Debridement Debridement Debridement -Clinical Debridement Subcutaneous Subcutaneous Subcutaneous -Tissue Removed Subcutaneous Subcutaneous Subcutaneous -Post Debridement (cm) - Length 8.3 8.5 8.4 -Post Debridement (cm) - Width 13.2 12.5 13.8 -Post Debridement (cm) - Depth 0.1 0.1 0.1 -Total Square (Post) (cm) 109.56 106.25 115.92 -Area of Debridement (cm) - Length 8.3 8.5 8.4 -Area of Debridement (cm) - Width 13.2 12.5 13.8 -Total Square (Area) (cm) 109.56 106.25 115.92 -Tunneling No No No -Undermining/Tunneling No No No -Circular Undermining No No No -Wound/Ulcer Outcome Not Healed Not Healed Not Healed -Ulcer Cleansing Rinsed/ Rinsed/ Rinsed/ Irrigated with Irrigated with Irrigated with Saline Saline Saline -Foul Odor after Cleansing No No No -Bioengineered Tissue No No No -Bleeding Controlled with Pressure Pressure Pressure -Treatment Response Procedure Procedure Procedure Tolerated Well Tolerated Well Tolerated Well -Offloading -Debridement - Subq, 1st 20sq cm Yes Yes Yes -Debridement, SubQ, ea addt'l 20sq cm 6 7 7 or part thereof Pain Scale: 0-10 Numeric Is Patient Pain Free? Yes Yes Yes 11/02/24 11/09/24 10:21 10:04 Wound Center Nurse 2 #24 Left Lateral Leg -Time 10:07 -Correct Patient Yes -Correct Side, Site, Position Yes -Correct Procedure Yes -Procedure Performed Yes -Type of Procedure Debridement -Clinical Debridement Subcutaneous -Tissue Removed Subcutaneous -Post Debridement (cm) - Length 2.0 -Post Debridement (cm) - Width 1.3 -Post Debridement (cm) - Depth 0.1 -Total Square (Post) (cm) 2.60 -Area of Debridement (cm) - Length 2.0 -Area of Debridement (cm) - Width 1.3 -Total Square (Area) (cm) 2.60 -Tunneling No -Undermining/Tunneling No -Circular Undermining No -Wound/Ulcer Outcome Not Healed -Ulcer Cleansing Rinsed/ Irrigated with Saline -Foul Odor after Cleansing No -Bioengineered Tissue No -Bleeding Controlled with Pressure -Treatment Response Procedure Tolerated Well -Debridement - Subq, 1st 20sq cm Yes -Debridement, SubQ, ea addt'l 20sq cm 9 or part thereof #23 R Lat Leg -Time 10:28 10:05 -Correct Patient Yes Yes -Correct Side, Site, Position Yes Yes -Correct Procedure Yes Yes -Procedure Performed Yes Yes -Type of Procedure Debridement Debridement -Clinical Debridement Subcutaneous Subcutaneous -Tissue Removed Subcutaneous Subcutaneous -Post Debridement (cm) - Length 9.5 9.3 -Post Debridement (cm) - Width 5.0 7.0 -Post Debridement (cm) - Depth 0.1 0.1 -Total Square (Post) (cm) 47.50 65.10 -Area of Debridement (cm) - Length 9.5 9.3 -Area of Debridement (cm) - Width 5.0 7.0 -Total Square (Area) (cm) 47.50 65.10 -Tunneling No No -Undermining/Tunneling No No -Circular Undermining No No -Wound/Ulcer Outcome Not Healed Not Healed -Ulcer Cleansing Rinsed/ Rinsed/ Irrigated with Irrigated with Saline Saline -Foul Odor after Cleansing No No -Bioengineered Tissue No No -Bleeding Controlled with Pressure Pressure -Treatment Response Procedure Tolerated Well -Offloading No -Debridement - Subq, 1st 20sq cm No No #22 R Medial Leg -Time 10:29 10:05 -Correct Patient Yes Yes -Correct Side, Site, Position Yes Yes -Correct Procedure Yes Yes -Procedure Performed Yes Yes -Type of Procedure Debridement Debridement -Clinical Debridement Subcutaneous Subcutaneous -Tissue Removed Subcutaneous Subcutaneous -Post Debridement (cm) - Length 3.0 3.0 -Post Debridement (cm) - Width 2.5 3.0 -Post Debridement (cm) - Depth 0.1 0.1 -Total Square (Post) (cm) 7.50 9.00 -Area of Debridement (cm) - Length 3.0 3.0 -Area of Debridement (cm) - Width 2.5 3.0 -Total Square (Area) (cm) 7.50 9.00 -Tunneling No No -Undermining/Tunneling No No -Circular Undermining No No -Wound/Ulcer Outcome Not Healed Not Healed -Ulcer Cleansing Rinsed/ Rinsed/ Irrigated with Irrigated with Saline Saline -Foul Odor after Cleansing No No -Bioengineered Tissue No No -Bleeding Controlled with Pressure Pressure -Treatment Response Procedure Procedure Tolerated Well Tolerated Well -Debridement - Subq, 1st 20sq cm No No #18 Left medial LE cluster -Time 10:30 10:06 -Correct Patient Yes Yes -Correct Side, Site, Position Yes Yes -Correct Procedure Yes Yes -Procedure Performed Yes Yes -Type of Procedure Debridement Debridement -Clinical Debridement Subcutaneous Subcutaneous -Tissue Removed Subcutaneous Subcutaneous -Post Debridement (cm) - Length 8.5 8.5 -Post Debridement (cm) - Width 14.0 12.8 -Post Debridement (cm) - Depth 0.1 0.1 -Total Square (Post) (cm) 119.00 108.80 -Area of Debridement (cm) - Length 8.5 8.5 -Area of Debridement (cm) - Width 14.0 12.8 -Total Square (Area) (cm) 119.00 108.80 -Tunneling No No -Undermining/Tunneling No No -Circular Undermining No No -Wound/Ulcer Outcome Not Healed Not Healed -Ulcer Cleansing Rinsed/ Rinsed/ Irrigated with Irrigated with Saline Saline -Foul Odor after Cleansing No No -Bioengineered Tissue No No -Bleeding Controlled with Pressure Pressure -Treatment Response Procedure Procedure Tolerated Well Tolerated Well -Offloading No -Debridement - Subq, 1st 20sq cm Yes No -Debridement, SubQ, ea addt'l 20sq cm 8 or part thereof Pain Scale: 0-10 Numeric Is Patient Pain Free? Yes Yes - Nurse 3 - General Ulcer D/C NN Start: 10/12/24 12:12 Freq: Status: Active Protocol: Activity Type Activity Date Activity User E-sign Co-sign Detail Recorded Client Recorded Date Recorded By Document 10/12/24 12:36 KW [id number] 10/12/24 12:37 KW Document 10/19/24 11:28 RB [id number] 10/19/24 11:30 RB Document 10/26/24 12:42 KW [id number] 10/26/24 12:48 KW Document 11/02/24 10:59 MT [id number] 11/02/24 11:16 MT Document 11/09/24 11:04 RB [id number] 11/09/24 11:06 RB 10/12/24 10/19/24 10/26/24 12:36 11:28 12:42 Wound Care Center Nurse 3 #24 Left Lateral Leg -Other Dressing -Primary Dressing Covered/Secured with #23 R Lat Leg -Ulcer Cleansing Rinsed/ Irrigated with Saline -Primary Dressing Applied Aquacel AG 4x4 Aquacel AG 4x4 -Primary Dressing Applied Aquacel AG 4x4 -Other Dressing abd -Primary Dressing Covered/Secured with Dry Gauze & Dry Gauze,Dry Dry Gauze & Roll Gauze, Gauze & Roll Roll Gauze, Secured with Gauze,Secured Secured with Tape with Tape Tape -Aquacel Extra -Aquacel AG 4x4 1 1 1 #22 R Medial Leg -Ulcer Cleansing Rinsed/ Irrigated with Saline -Primary Dressing Applied Aquacel AG 4x4 -Other Dressing aquacel ag aquacel AG/abd -Primary Dressing Covered/Secured with Dry Gauze Dry Gauze,Dry Dry Gauze Gauze & Roll Gauze,Secured with Tape -Other Covering -Aquacel AG 4x4 1 #18 Left medial LE cluster -Ulcer Cleansing Rinsed/ Irrigated with Saline -Primary Dressing Applied Fibracol Plus Fibracol Plus 4x4 4x4 -Primary Dressing Applied Aquacel Extra, Fibracol Plus 4x4 -Other Dressing -Primary Dressing Covered/Secured with Dry Gauze & Roll Gauze, Secured with Tape -Aquacel Extra 1 -Aquacel AG 4x4 -Fibracol Plus 4x4 1 2 1 wili -Tubular Bandage Single Layer -Size of Tubigrip Used Size F -Size F ($) 2 -Other marcio Right -Compression Wrap Marcio Wrap -Tubular Bandage Single Layer Single Layer -Size of Tubigrip Used Size F Size F -Size F ($) 1 1 Left -Compression Wrap Marcio Wrap -Tubular Bandage Single Layer Single Layer -Size of Tubigrip Used Size F Size F -Size F ($) 1 1 Treatment Response Pain Scale: 0-10 Numeric Is Patient Pain Free? Yes Yes Yes WC - Visit Discharge Discharge Condition Stable Stable Stable Ambulatory Status Ambulatory, Ambulatory, Ambulatory Walker Walker Transportation Private Auto Private Auto Medication Reconcilliation completed & No No No provided to patient/care provider Clinical Summary of Care Provided Yes Yes Yes 11/02/24 11/09/24 10:59 11:04 Wound Care Center Nurse 3 #24 Left Lateral Leg -Other Dressing ABD -Primary Dressing Covered/Secured with Dry Gauze,Dry Gauze & Roll Gauze,Secured with Tape #23 R Lat Leg -Ulcer Cleansing -Primary Dressing Applied -Primary Dressing Applied Aquacel Extra Aquacel Extra -Other Dressing abd -Primary Dressing Covered/Secured with Dry Gauze & Roll Gauze, Secured with Tape -Aquacel Extra 2 1 -Aquacel AG 4x4 #22 R Medial Leg -Ulcer Cleansing -Primary Dressing Applied -Other Dressing aquacel extra -Primary Dressing Covered/Secured with Dry Gauze,Dry Gauze & Roll Gauze,Secured with Tape -Other Covering abd -Aquacel AG 4x4 #18 Left medial LE cluster -Ulcer Cleansing -Primary Dressing Applied -Primary Dressing Applied Aquacel AG 4x4, Fibracol Plus 4x4 -Other Dressing abd -Primary Dressing Covered/Secured with Dry Gauze & Roll Gauze, Secured with Tape -Aquacel Extra -Aquacel AG 4x4 1 -Fibracol Plus 4x4 1 wili -Tubular Bandage Single Layer -Size of Tubigrip Used Size F -Size F ($) 2 -Other marcio over tubigrip Right -Compression Wrap -Tubular Bandage Single Layer -Size of Tubigrip Used Size F -Size F ($) 1 Left -Compression Wrap -Tubular Bandage Single Layer -Size of Tubigrip Used Size F -Size F ($) 1 Treatment Response Procedure Tolerated Well Pain Scale: 0-10 Numeric Is Patient Pain Free? Yes Yes WC - Visit Discharge Discharge Condition Stable Ambulatory Status Ambulatory, Walker Transportation Private Auto Medication Reconcilliation completed & No provided to patient/care provider Clinical Summary of Care Provided Yes Additional Wound Wound debrided: right lateral leg Laterality: Right Type of Debridement: Excisional debridement Anesthesia Used: 5% Lidocaine Gel and Cetacaine Depth: Down to and including healthy tissue and in the subcutaneous layer Percentage of wound debrided: 100 Instrument Used: - (Misonix ultrasonic debridement) Tissue Removed: Yellow slough, devitalized tissue Severity: Fat Layer Exposed Amount of bleeding with debridement: Mild Bleeding Controlled with: Compression and gauze Patient tolerated procedure: Patient tolerated procedure well Additional Wound Wound debrided: right medial leg Laterality: Right Type of Debridement: Excisional debridement Anesthesia Used: 5% Lidocaine Gel and Cetacaine Depth: Down to and including healthy tissue and in the subcutaneous layer Percentage of wound debrided: 100 Instrument Used: - (Misonix ultrasonic debridement) Tissue Removed: Yellow slough, devitalized tissue Severity: Fat Layer Exposed Amount of bleeding with debridement: Mild Bleeding Controlled with: Compression and gauze Patient tolerated procedure: Patient tolerated procedure well Assessment/Plan Assessment/Plan (1) Lymphedema: CODE(S): I89.0 - Lymphedema, not elsewhere classified (2) Hypertension: CODE(S): I10 - Essential (primary) hypertension QUALIFIERS: Hypertension type: primary hypertension Qualified Code(s): I10 - Essential (primary) hypertension (3) Hyperlipidemia: CODE(S): E78.5 - Hyperlipidemia, unspecified QUALIFIERS: Hyperlipidemia type: mixed hyperlipidemia Qualified Code(s): E78.2 - Mixed hyperlipidemia (4) History of DVT (deep vein thrombosis): CODE(S): Z86.718 - Personal history of other venous thrombosis and embolism (5) Venous insufficiency (chronic) (peripheral): CODE(S): I87.2 - Venous insufficiency (chronic) (peripheral) (6) Venous ulcer of left lower extremity with varicose veins: CODE(S): I83.029 - Varicose veins of left lower extremity with ulcer of unspecified site (7) Edema: CODE(S): R60.9 - Edema, unspecified QUALIFIERS: Edema type: unspecified Qualified Code(s): R60.9 - Edema, unspecified (8) Venous ulcer of right lower extremity with varicose veins: CODE(S): I83.019 - Varicose veins of right lower extremity with ulcer of unspecified site; L97.919 - Non-pressure chronic ulcer of unspecified part of right lower leg with unspecified severity (9) Ulcer of left lower extremity with fat layer exposed: CODE(S): L97.922 - Non-pressure chronic ulcer of unspecified part of left lower leg with fat layer exposed PLAN: Plan Evaluation and debridement of left medial LE ulcer performed today in clinic as annotated above. At home wound-care instructions: Will have him use Fibracol changed daily to left medial LE. Right lateral LE will have him use Calcium alginate changed daily. Continue compression with F tubigrips b/l. Due to his chronic lymphedema and being unable to don traditional compression stockings and the presence of venous ulcers on his LE b/l, it is medically necessary for him to have Circaid compression garments. These are being ordered. I suspect he is not very compliant with his lymphedema pumps and not getting adequate compression with tubigrips. Due to the delayed progress in wound healing of his venous ulcers, we discussed applying for advanced wound healing product for healing his ulcer. Due to the size of his ulcer, Theraskin application approval was requested from his insurance as it is medically necessary for salvaging his limb and healing his ulcer. He underwent 2 applications of Theraskin to this ulcer. Since application of Theraskin he has had much improvement in epithelialization of his ulcer even though the overall size is not significantly changed there is progress. Off-loading: The patient was instructed to avoid pressure and friction on the affected areas. Reposition every 2 hours at minimum. Avoid prolonged standing and/or dangling of legs. When seated, feet should be elevated at chest level. Frequent ambulation is encouraged. Encouraged lymphedema pump use. Diet: Patient encouraged to increase protein intake while taking caution to avoid high carbohydrate and/or sugar intake. Labs/cultures/imaging: Wound culture showed Pseudomonas, Escherichia hermannii, Raoultella planticola, Vancomycin Resist. E. faecalis, Alcaligenes faecalis ssp faeca, Staphylococcus cohnii urealyti and anaerobic bacteria on 06/15/24 and he completed on Levofloxacin and Augmentin. Wound culture taken today on right lateral ulcer which showed Raoultella planticola, Staph hemolyticus, staph epidermidis and morganella morganii but no anaeroobic bacteria, Levofloxacin and doxycyline were prescribed based on culture results. Labs ordered 10/19/2024. Vitamin D was low A1C 5.4% Follow-up: Return in 1 week for wound care follow up and have dressing changed by home health Tuesday and Tuesday. Return sooner or report to the emergency room should symptoms worsen, or new symptoms arise. Note: [employer] speech recognition computer specialist software was used to create portions of this document. Sound-alike and misspelled words, as well as other computer specialist errors may be contained in the documentation.
== END 2024-11-09 23:59 | disposition home or self-care (01) ==
LOC: WC 09:30
PROVIDERS: PCP Family Medicine; Referring Provider Family Medicine; Visit Provider Family Medicine
DX: I83.019 Varicose veins of right lower extremity with ulcer of unspecified site (principal); L97.922 Non-pressure chronic ulcer of unspecified part of left lower leg with fat layer exposed; L97.912 Non-pressure chronic ulcer of unspecified part of right lower leg with fat layer exposed; I83.029 Varicose veins of left lower extremity with ulcer of unspecified site; I82.5Y2 Chronic embolism and thrombosis of unspecified deep veins of left proximal lower extremity; I10 Essential (primary) hypertension; I89.0 Lymphedema, not elsewhere classified; E78.2 Mixed hyperlipidemia; I83.93 Asymptomatic varicose veins of bilateral lower extremities; I87.2 Venous insufficiency (chronic) (peripheral); E78.5 Hyperlipidemia, unspecified
CPT/HCPCS: 11042; 11045

== ENCOUNTER 2024-12-07 09:30 | Outpatient (RCR) | payer MEDICARE, OTHER, SELFPAY ==
[2024-11-10 00:39] VITALS: BP 129/71; PULSE 73; RESP 18; TEMP 35.4
[2024-11-16 10:12] VITALS: BP 133/64; PULSE 68; RESP 18; TEMP 35.7
--- NOTE | 2024-11-16 12:27 | WC ---
PHOTO 11/16/24 RLE LATERAL
--- NOTE | 2024-11-16 12:37 | WC ---
PHOTO 11/16/24 RIGHT MEDIAL LE
--- NOTE | 2024-11-16 12:39 | WC ---
PHOTO 11/16/24 RIGHT MEDIAL
--- NOTE | 2024-11-16 12:41 | WC ---
PHOTO 11/16/24 SEEMA GARRIDO
--- NOTE | 2024-11-16 12:43 | WC ---
PHOTO 11/16/24 LEFT LATERAL LEG
--- NOTE | 2024-11-16 15:26 | PCM.WC.PN ---
History of Present Illness Date of Service: 11/16/24 Chief Complaint: venous ulcers of left lower extremity History of Wound: Mauricio is a 69 yo gentleman who is here today for evaluation of ulcers to to his bilateral lower legs. He has been treated multiple times in the past at the wound healing center for similar ulcers. The left LE ulcer started after he developed increased swelling and blisters of left leg in October and the right leg started sometime at the end of October. He was seen at PCP's office a culture was taken and it was resistant to several antibiotics. He was treated initially with Levaquin but had myalgias and then was treated with doxycycline which he finished 2 days ago. He denies improvement and is having swelling to his left calf and thigh. He has been having swelling to both lower extremities for many years and it has worsened over the last few months. He has not been compliant with compression. He has had increased pain especially in the left leg. He has clear yellow drainage and redness without odor or warmth. He is anti-coagulated on coumadin. He has been washing with Dial soap and witch ifrah. He had been using Collagen at times and using Calcium Alginate and covering with ABD pads during October. He was treated with 3M compression and Aquacel Ag. He was referred to the wound center for ongoing treatment. His ulcers have moderate to heavy drainage. He was in the hospital from 11/30/22 until 12/09/22 for treatment of cellulitis and edema. He underwent treatment with Vancomycin and IV lasix and compression. Discharged on 12/09/22. He returned to his assisted living apartment on Tuesday12/21/22. Subjective Subjective Mauricio is a 69-year-old male with longstanding history of chronic venous ulceration to the left lower extremity. Wound culture from 06/15/24 were positive for multiple bacteria and he completed antibiotic treatment. He has had decreased drainage this week. His edema is a little better this week and he has been using ABDs and Aquacel Extra. There has been improvement in his left medial ulcer overall this week. He is using KATE and size F Tubigrips for compression. 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 He continues to use his lymphedema pumps but continues to have pain with use of these pumps. Right lateral ulcer is larger and culture was positive for several bacteria and he is completed treatment. Objective Data Objective Data Vital Signs: Vital Signs Temp Pulse Resp BP O2 Del Method 96.2 F L 68 18 133/64 H Room Air 11/16/24 10:12 11/16/24 10:12 11/16/24 10:12 11/16/24 10:12 11/16/24 10:12 Oxygen Delivery Method Room Air Physical Exam Const alert, oriented x3 and no apparent distress General Appearance: cooperative and comfortable HEENT normocephalic and head/scalp atraumatic Lymph Lymphatic: lymphedema moderate Resp normal respiratory effort Effort and Inspection: able to speak in complete sentences Cardio regular rate and regular rhythm Extremity Extremity Narrative: edema significantly increased today in b/l legs General Extremity: edema bilateral lower extremity Details: severe Skin General Skin Exam: venous stasis and dermatitis Wounds: wounds noted Wound Narrative: as in clinical panel, no cellulitis or odor, there is decreased depth, + granulation tissue right lateral ulcer with good granulation and minimal slough Psych mental status grossly normal, thought process normal, cooperative and affect normal Debridement Note Debridement Note Wound debrided: left medial LE ulcer Laterality: Left Type of Debridement: Excisional debridement Anesthesia Used: 5% Lidocaine Gel and Cetacaine Depth: Down to and including healthy tissue and in the subcutaneous layer Percentage of wound debrided: 100 Instrument Used: - (Misonix ultrasonic debridement) Tissue Removed: Yellow slough, devitalized tissue Severity: Fat Layer Exposed Amount of bleeding with debridement: Mild Bleeding Controlled with: Compression and gauze Patient tolerated procedure: Patient tolerated procedure well Post-Debridement Measurements and Additional Note: Post-Debridement Measurements/Treatment DEBBIE - Nurse 1 - General Ulcer Assessment Start: 11/16/24 10:12 Freq: Status: Active Protocol: ONDINA Activity Type Activity Date Activity User E-sign Co-sign Detail Recorded Client Recorded Date Recorded By Document 11/16/24 10:12 ARPIT [id number] 11/16/24 11:04 ARPIT 11/16/24 10:12 DEBBIE - Today's Visit Information Type of service Follow-up Visit (Physician/[facility] CONSULTANT ) Arrival Mode Ambulatory, Walker Transfer Assistance None Patient Identification Verified (Name & Yes ) Patient Requires Transmission-Based No Precautions Vital Signs Temperature (97.8 F-99.1 F) 96.2 F L Temperature Source Temporal Pulse Rate (60-100) 68 Pulse Location Monitor Respiratory Rate (12-18) 18 Respiratory rate source Observation Oxygen Delivery Method Room Air Blood Pressure (90/60-120/80) 133/64 H Blood Pressure Mean (mm Hg) 87 Source Monitor Position Semi-Fowlers Blood Pressure Location Left Arm History Since Last Visit- (Skip if this is Patient's initial visit) Have you changed medications since your No last visit? Any new allergies or adverse reactions No Had a fall/change in ADL's that may No increase risk of falls Signs or symptoms of abuse and/or No neglect since last visit Have you been in the hospital since your No last visit? Has dressing in place as prescribed Yes Has compression in place as prescribed Yes Has offloadiing in place as prescribed N/A Experienced any changes in pain level or No management Left Footwear Regular Shoe Right Footwear Regular Shoe Pain Scale: 0-10 Numeric Is Patient Pain Free? No LLE -Description Aching -Intensity 8 -Duration (hours) Chronic -Pain Behavior Withdrawal from Touch -Pain Aggravating Factors Debridement -Alleviating Factors/Interventions Medication -Effectiveness of Alleviating Factor/ Moderately Intervention effective WC - Nurse 1 - General Ulcer Measurement Start: 11/16/24 10:12 Freq: Status: Active Protocol: Activity Type Activity Date Activity User E-sign Co-sign Detail Recorded Client Recorded Date Recorded By Document 11/16/24 10:12 ARPIT [id number] 11/16/24 11:04 ARPIT 11/16/24 10:12 Wound Center Nurse 1 #24 Left Lateral Leg -Combined with other wound No -Current Size (cm) - Length 2.2 -Current Size (cm) - Width 1.8 -Current Size (cm) - Depth 0.1 -Total Square Cm 3.96 -Photo Taken Yes -Tunneling No -Undermining/Tunneling No -Circular Undermining No -Exudate Amt Medium -Exudate Type Serosanguineous -Wound Margin Distinct, Outline Attached -Granulation Amt Medium (34-66%) -Granulation Quality [place] -Slough/Fibrin Yes -Necrosis Amt Medium (34-66%) -Necrotic Tissue Type Adherent Slough -Structure Exposed N/A -Texture (Marie-wound Skin Appearance) Assessed, Friable -Moisture (Marie-wound Skin Appearance) Assessed -Color (Marie-wound Skin Appearance) Assessed, Hemosiderin Staining -Temperature (Marie-wound Skin No Abnormality Appearance) (Pt Warm) -Tenderness on Palpation (Marie-wound No Skin Appearance) -Ulcer Cleansing Wound Cleanser -Foul Odor after Cleansing No -Anesthetic Used 5% Lidocaine Gel #23 R Lat Leg -Combined with other wound No -Current Size (cm) - Length 10.5 -Current Size (cm) - Width 6.4 -Current Size (cm) - Depth 0.1 -Total Square Cm 67.20 -Photo Taken Yes -Tunneling No -Undermining/Tunneling No -Circular Undermining No -Exudate Amt Medium -Exudate Type Serosanguineous -Wound Margin Distinct, Outline Attached -Granulation Amt Medium (34-66%) -Granulation Quality [place] -Slough/Fibrin Yes -Necrosis Amt Medium (34-66%) -Necrotic Tissue Type Adherent Slough -Structure Exposed N/A -Texture (Marie-wound Skin Appearance) Assessed, Friable -Moisture (Marie-wound Skin Appearance) Assessed -Color (Marie-wound Skin Appearance) Assessed, Hemosiderin Staining -Temperature (Marie-wound Skin No Abnormality Appearance) (Pt Warm) -Tenderness on Palpation (Marie-wound No Skin Appearance) -Ulcer Cleansing Wound Cleanser -Foul Odor after Cleansing No -Anesthetic Used 5% Lidocaine Gel #22 R Medial Leg -Combined with other wound No -Current Size (cm) - Length 10.7 -Current Size (cm) - Width 4 -Current Size (cm) - Depth 0.1 -Total Square Cm 42.8 -Photo Taken Yes -Tunneling No -Undermining/Tunneling No -Circular Undermining No -Exudate Amt Large -Exudate Type Serosanguineous -Wound Margin Distinct, Outline Attached -Granulation Amt Medium (34-66%) -Granulation Quality [place] -Slough/Fibrin Yes -Necrosis Amt Medium (34-66%) -Necrotic Tissue Type Adherent Slough -Structure Exposed N/A -Texture (Marie-wound Skin Appearance) Assessed, Friable -Moisture (Marie-wound Skin Appearance) Assessed -Color (Marie-wound Skin Appearance) Assessed, Hemosiderin Staining -Temperature (Marie-wound Skin No Abnormality Appearance) (Pt Warm) -Tenderness on Palpation (Marie-wound No Skin Appearance) -Ulcer Cleansing Wound Cleanser -Foul Odor after Cleansing No -Anesthetic Used 5% Lidocaine Gel #18 Left medial LE cluster -Combined with other wound No -Current Size (cm) - Length 18 -Current Size (cm) - Width 8 -Current Size (cm) - Depth 0.1 -Total Square Cm 144 -Photo Taken Yes -Tunneling No -Undermining/Tunneling No -Circular Undermining No -Exudate Amt Medium -Exudate Type Serosanguineous -Wound Margin Distinct, Outline Attached -Granulation Amt Medium (34-66%) -Granulation Quality [place] -Slough/Fibrin Yes -Necrosis Amt Medium (34-66%) -Necrotic Tissue Type Adherent Slough -Structure Exposed N/A -Texture (Marie-wound Skin Appearance) Assessed, Friable, Scarring -Moisture (Marie-wound Skin Appearance) Assessed -Color (Marie-wound Skin Appearance) Assessed, Hemosiderin Staining -Temperature (Marie-wound Skin No Abnormality Appearance) (Pt Warm) -Tenderness on Palpation (Marie-wound No Skin Appearance) -Ulcer Cleansing Wound Cleanser -Foul Odor after Cleansing No -Anesthetic Used 5% Lidocaine Gel Lower Limb Edema Present Yes Right Calf (cm) 49.8 Right Ankle (cm) 30.8 Left Calf (cm) 47.5 Left Ankle (cm) 31 - Nurse 2 - General Ulcer CM Notes Start: 11/16/24 10:12 Freq: Status: Active Protocol: Activity Type Activity Date Activity User E-sign Co-sign Detail Recorded Client Recorded Date Recorded By Document 11/16/24 11:05 [id number] 11/16/24 11:19 11/16/24 11:05 Wound Center Nurse 2 #24 Left Lateral Leg -Time 11:06 -Correct Patient Yes -Correct Side, Site, Position Yes -Correct Procedure Yes -Procedure Performed Yes -Type of Procedure Debridement -Clinical Debridement Subcutaneous -Tissue Removed Subcutaneous -Post Debridement (cm) - Length 8.8 -Post Debridement (cm) - Width 14.4 -Post Debridement (cm) - Depth 0.1 -Total Square (Post) (cm) 126.72 -Area of Debridement (cm) - Length 8.8 -Area of Debridement (cm) - Width 14.4 -Total Square (Area) (cm) 126.72 -Tunneling No -Undermining/Tunneling No -Circular Undermining No -Wound/Ulcer Outcome Not Healed -Ulcer Cleansing Rinsed/ Irrigated with Saline -Foul Odor after Cleansing No -Bioengineered Tissue No -Bleeding Controlled with Pressure -Treatment Response Procedure Tolerated Well -Debridement - Subq, 1st 20sq cm No #23 R Lat Leg -Time 11:06 -Correct Patient Yes -Correct Side, Site, Position Yes -Correct Procedure Yes -Procedure Performed Yes -Type of Procedure Debridement -Clinical Debridement Subcutaneous -Tissue Removed Subcutaneous -Post Debridement (cm) - Length 10.0 -Post Debridement (cm) - Width 7.3 -Post Debridement (cm) - Depth 0.1 -Total Square (Post) (cm) 73.00 -Area of Debridement (cm) - Length 10.0 -Area of Debridement (cm) - Width 7.3 -Total Square (Area) (cm) 73.00 -Tunneling No -Undermining/Tunneling No -Circular Undermining No -Wound/Ulcer Outcome Not Healed -Ulcer Cleansing Rinsed/ Irrigated with Saline -Foul Odor after Cleansing No -Bioengineered Tissue No -Bleeding Controlled with Pressure -Treatment Response Procedure Tolerated Well -Debridement - Subq, 1st 20sq cm No #22 R Medial Leg -Time 11:07 -Correct Patient Yes -Correct Side, Site, Position Yes -Correct Procedure Yes -Procedure Performed Yes -Type of Procedure Debridement -Clinical Debridement Subcutaneous -Tissue Removed Subcutaneous -Post Debridement (cm) - Length 11.5 -Post Debridement (cm) - Width 4.0 -Post Debridement (cm) - Depth 0.1 -Total Square (Post) (cm) 46.00 -Area of Debridement (cm) - Length 11.5 -Area of Debridement (cm) - Width 4.0 -Total Square (Area) (cm) 46.00 -Tunneling No -Undermining/Tunneling No -Circular Undermining No -Wound/Ulcer Outcome Not Healed -Ulcer Cleansing Rinsed/ Irrigated with Saline -Foul Odor after Cleansing No -Bioengineered Tissue No -Bleeding Controlled with Pressure -Treatment Response Procedure Tolerated Well -Debridement - Subq, 1st 20sq cm No #18 Left medial LE cluster -Time 11:08 -Correct Patient Yes -Correct Side, Site, Position Yes -Correct Procedure Yes -Procedure Performed Yes -Type of Procedure Debridement -Clinical Debridement Subcutaneous -Tissue Removed Subcutaneous -Post Debridement (cm) - Length 2.4 -Post Debridement (cm) - Width 1.6 -Post Debridement (cm) - Depth 0.1 -Total Square (Post) (cm) 3.84 -Area of Debridement (cm) - Length 2.4 -Area of Debridement (cm) - Width 1.6 -Total Square (Area) (cm) 3.84 -Tunneling No -Undermining/Tunneling No -Circular Undermining No -Wound/Ulcer Outcome Not Healed -Ulcer Cleansing Rinsed/ Irrigated with Saline -Foul Odor after Cleansing No -Bioengineered Tissue No -Bleeding Controlled with Pressure -Treatment Response Procedure Tolerated Well -Debridement - Subq, 1st 20sq cm Yes -Debridement, SubQ, ea addt'l 20sq cm 12 or part thereof Pain Scale: 0-10 Numeric Is Patient Pain Free? Yes - Nurse 3 - General Ulcer D/C NN Start: 11/16/24 10:12 Freq: Status: Active Protocol: Activity Type Activity Date Activity User E-sign Co-sign Detail Recorded Client Recorded Date Recorded By Document 11/16/24 12:00 [id number] 11/16/24 12:01 KW 11/16/24 12:00 Wound Care Center Nurse 3 #24 Left Lateral Leg -Primary Dressing Covered/Secured with Dry Gauze & Roll Gauze, Secured with Tape #23 R Lat Leg -Other Dressing aquacel ag -Primary Dressing Covered/Secured with Dry Gauze #22 R Medial Leg -Primary Dressing Applied Aquacel AG 4x4 -Primary Dressing Covered/Secured with Dry Gauze & Roll Gauze, Secured with Tape -Aquacel AG 4x4 1 #18 Left medial LE cluster -Primary Dressing Covered/Secured with Dry Gauze & Roll Gauze, Secured with Tape wili -Compression Wrap Kate Wrap -Other 2 Right -Tubular Bandage Single Layer -Size of Tubigrip Used Size E -Size E ($) 1 Left -Tubular Bandage Single Layer -Size of Tubigrip Used Size E -Size E ($) 1 Pain Scale: 0-10 Numeric Is Patient Pain Free? Yes - Visit Discharge Discharge Condition Stable Ambulatory Status Ambulatory, Walker Medication Reconcilliation completed & No provided to patient/care provider Clinical Summary of Care Provided Yes Additional Wound Wound debrided: right lateral leg Laterality: Right Type of Debridement: Excisional debridement Anesthesia Used: 5% Lidocaine Gel and Cetacaine Depth: Down to and including healthy tissue and in the subcutaneous layer Percentage of wound debrided: 100 Instrument Used: - (Misonix ultrasonic debridement) Tissue Removed: Yellow slough, devitalized tissue Severity: Fat Layer Exposed Amount of bleeding with debridement: Mild Bleeding Controlled with: Compression and gauze Patient tolerated procedure: Patient tolerated procedure well Additional Wound Wound debrided: right medial leg Laterality: Right Type of Debridement: Excisional debridement Anesthesia Used: 5% Lidocaine Gel and Cetacaine Depth: Down to and including healthy tissue and in the subcutaneous layer Percentage of wound debrided: 100 Instrument Used: - (Misonix ultrasonic debridement) Tissue Removed: Yellow slough, devitalized tissue Severity: Fat Layer Exposed Amount of bleeding with debridement: Mild Bleeding Controlled with: Compression and gauze Patient tolerated procedure: Patient tolerated procedure well Assessment/Plan Assessment/Plan (1) Lymphedema: CODE(S): I89.0 - Lymphedema, not elsewhere classified (2) Hypertension: CODE(S): I10 - Essential (primary) hypertension QUALIFIERS: Hypertension type: primary hypertension Qualified Code(s): I10 - Essential (primary) hypertension (3) Hyperlipidemia: CODE(S): E78.5 - Hyperlipidemia, unspecified QUALIFIERS: Hyperlipidemia type: mixed hyperlipidemia Qualified Code(s): E78.2 - Mixed hyperlipidemia (4) History of DVT (deep vein thrombosis): CODE(S): Z86.718 - Personal history of other venous thrombosis and embolism (5) Venous insufficiency (chronic) (peripheral): CODE(S): I87.2 - Venous insufficiency (chronic) (peripheral) (6) Venous ulcer of left lower extremity with varicose veins: CODE(S): I83.029 - Varicose veins of left lower extremity with ulcer of unspecified site (7) Edema: CODE(S): R60.9 - Edema, unspecified QUALIFIERS: Edema type: unspecified Qualified Code(s): R60.9 - Edema, unspecified (8) Venous ulcer of right lower extremity with varicose veins: CODE(S): I83.019 - Varicose veins of right lower extremity with ulcer of unspecified site; L97.919 - Non-pressure chronic ulcer of unspecified part of right lower leg with unspecified severity (9) Ulcer of left lower extremity with fat layer exposed: CODE(S): L97.922 - Non-pressure chronic ulcer of unspecified part of left lower leg with fat layer exposed PLAN: Plan Evaluation and debridement of left medial LE ulcer performed today in clinic as annotated above. At home wound-care instructions: Will have him use Fibracol changed daily to left medial LE. Right lateral LE will have him use Calcium alginate changed daily. Continue compression with F tubigrips b/l. Due to his chronic lymphedema and being unable to don traditional compression stockings and the presence of venous ulcers on his LE b/l, it is medically necessary for him to have Circaid compression garments. These are being ordered. I suspect he is not very compliant with his lymphedema pumps and not getting adequate compression with tubigrips. Due to the delayed progress in wound healing of his venous ulcers, we discussed applying for advanced wound healing product for healing his ulcer. Due to the size of his ulcer, Theraskin application approval was requested from his insurance as it is medically necessary for salvaging his limb and healing his ulcer. He underwent 2 applications of Theraskin to this ulcer. Since application of Theraskin he has had much improvement in epithelialization of his ulcer even though the overall size is not significantly changed there is progress. Off-loading: The patient was instructed to avoid pressure and friction on the affected areas. Reposition every 2 hours at minimum. Avoid prolonged standing and/or dangling of legs. When seated, feet should be elevated at chest level. Frequent ambulation is encouraged. Encouraged lymphedema pump use. Diet: Patient encouraged to increase protein intake while taking caution to avoid high carbohydrate and/or sugar intake. Labs/cultures/imaging: Wound culture showed Pseudomonas, Escherichia hermannii, Raoultella planticola, Vancomycin Resist. E. faecalis, Alcaligenes faecalis ssp faeca, Staphylococcus cohnii urealyti and anaerobic bacteria on 06/15/24 and he completed on Levofloxacin and Augmentin. Wound culture taken today on right lateral ulcer which showed Raoultella planticola, Staph hemolyticus, staph epidermidis and morganella morganii but no anaeroobic bacteria, Levofloxacin and doxycyline were prescribed based on culture results. Labs ordered 10/19/2024. Vitamin D was low A1C 5.4% Wound culture taken today due to increased pain. Follow-up: Return in 1 week for wound care follow up and have dressing changed by home health Tuesday and Tuesday. Return sooner or report to the emergency room should symptoms worsen, or new symptoms arise. Note: [employer] speech recognition rolling up machine operator software was used to create portions of this document. Sound-alike and misspelled words, as well as other rolling up machine operator errors may be contained in the documentation.
[2024-11-23 09:27] VITALS: BP 135/67; PULSE 64; RESP 18; TEMP 35.3
--- NOTE | 2024-11-26 08:42 | ART_ITS ---
Reason For Study Reason For Study: PAD Procedure A bilateral lower extremity continuous wave Doppler with analog waveform analysis,segmental pressures,and ankle brachial indexes without exercise. Left Segmental Pressures Left brachial= 131mmHg. Left posterior tibial artery = 149mmHg. Left dorsalis pedis artery = 181mmHg. Left digit = 111 mmHg. The left dorsalis pedis waveforms are triphasic. The left posterior tibial artery waveforms are biphasic. Right Segmental Pressures Right brachial= 133mmHg. Right posterior tibial artery = 191mmHg. Right dorsalis pedis artery = 165mmHg. Right digit = 89 mmHg. The right dorsalis pedis waveforms are triphasic. The right posterior tibial artery waveforms are triphasic. Indices The right ankle brachial index by the dorsalis pedis is 1.24. The right ankle brachial index by the posterior tibial artery is 1.44. The right digital-brachial index is 0.67. The left ankle brachial index by the dorsalis pedis is 1.36. The left ankle brachial index by the posterior tibial artery is 1.12. The left digital-brachial index is 0.83. VL/Lower Ext Art Exam w/o Exercis Interpretation Summary Triphasic Doppler waveforms are noted at ankle level on the right. Triphasic an d biphasic Doppler waveforms are noted at ankle level on the left. Pulse-volume recordings appear satisfactory at all lev els bilaterally. The resting right ankle- brachial index is supra-normal. The resting left ankle-brachial index is normal . The right digital-brachial index is mildly diminished. The left digital-brachial index is normal. There is evidence of arterial calcification at ankle level on the right. Arteri al flow appears normal at ankle level bilaterally, and at digital level on the left. There is evidence of mild arteri al occlusive disease at digital level on the right. Ordering Physician: Patricia Garcia Referring Physician: PATRICIA GARCIA MD Performed By: Kasia Oro RVT and Student
--- NOTE | 2024-11-26 08:42 | VDLE_ITS ---
Reason For Study Reason For Study: [place] leg pain, wounds RIGHT LEFT CFV is partially compressible with bright CFV is partially compressible with bright intraluminal echoes, consistent with Chronic DVT. intraluminal echoes, consistent with Chronic DVT. Normal venous flow noted. Normal venous flow noted. FV is partially compressible with bright intraluminal FV is partially compressible with bright intraluminal echoes, consistent with Chronic DVT. Normal venous echoes, consistent with Chronic DVT. Normal venous flow noted. flow noted. PopV is patially compressible with bright PopV is patially compressible with bright intraluminal echoes, consistent with Chronic DVT. intraluminal echoes, consistent with Chronic DVT. Venous flow is INCOMPETENT >1 second. Normal venous flow noted. T/P Trunk is partially compressible with bright SFJ is competent and measures 0.83 cm. intraluminal echoes, consistent with Chronic DVT. GSV proximal thigh measures 1.06 x 1.09 cm. PTV is compressible. GSV above knee is competent. RT PerV is compressible. GSV at knee measures 0.65 x 0.60 cm. SFJ is INCOMPETENT and measures 0.93 cm. GSV below knee is INCOMPETENT for greater than 0.5 GSV proximal thigh measures 0.84 x 0.84 cm. seconds. GSV above knee is competent. ASV from junction is INCOMPETENT for greater than 0.5 GSV at knee measures 0.70 x 0.70 cm. seconds and measures 0.59 x 0.55 cm. GSV below knee is INCOMPETENT for greater than 0.5 ASV at knee is INCOMPETENT for greater than 0.5 seconds. seconds and measures 0.37 x 0.34 cm. ASV at knee is INCOMPETENT for greater than 0.5 SSV mid calf is INCOMPETENT for greater than 0.5 seconds and measures 0.56 x 0.57 cm. seconds and measures 0.40 x 0.39 cm. SSV mid calf is competent and measures 0.26 x 0.26 cm. ASV prox calf from SSV is INCOMPETENT for greater olga 0.5 seconds and measures 0.44 cm. Procedure This is a venous duplex using B-mode, color flow and spectral Doppler. Exam performed in department. Patient was scanned in reverse Trendelenburg position during reflux assessment. Calf veins not visualized at mid-distal calf in the right calf and distal calf in the left calf due to badages. VL/Venous Duplex US - [place] Extrem Interpretation Summary Deep veins of the lower extremities appear patent bilaterally. Valvular incompe tence is noted in the right popliteal vein. Chronic venous changes are noted in the deep venous system bilaterally, d emonstrating bright intra-luminal echogenicity and partial compressibility. The great saphenous veins appear bila terally patent and compressible segmentally. The right sapheno-femoral junction is incompetent . The left saphe no-femoral junction is competent . The right great saphenous vein appears competent above the knee. The right great sa phenous vein appears incompetent below the knee. The left great saphenous vein appears competent above the knee. The l eft great saphenous vein appears incompetent below the knee. The right small saphenous vein is patent and compet ent. The left small saphenous vein is patent and incompetent. The accessory saphenous vein at right knee level is inc ompetent. The accessory saphenous vein from the right small saphenous vein in the right proximal calf is incompetent. The accessory saphenous vein near the left sapheno-femoral junction is incompetent. The accessory saphenous vein at l eft knee level is incompetent. Portions of the deep veins in the calves were not visualized in both legs due to the pre sence of bandages. Ordering Physician: Patricia Garcia Referring Physician: Patricia Garcia Performed By: Kasia Oro RVT
--- NOTE | 2024-11-30 21:10 | PN.PCM_ITS ---
History of Present Illness Date of Service: 11/30/24 Chief Complaint: venous ulcers of left lower extremity History of Wound: Mauricio is a 69 yo gentleman who is here today for evaluation of ulcers to to his bilateral lower legs. He has been treated multiple times in the past at the wound healing center for similar ulcers. The left LE ulcer started after he developed increased swelling and blisters of left leg in October and the right leg started sometime at the end of October. He was seen at PCP's office a culture was taken and it was resistant to several antibiotics. He was treated initially with Levaquin but had myalgias and then was treated with doxycycline which he finished 2 days ago. He denies improvement and is having swelling to his left calf and thigh. He has been having swelling to both lower extremities for many years and it has worsened over the last few months. He has not been compliant with compression. He has had increased pain especially in the left leg. He has clear yellow drainage and redness without odor or warmth. He is anti- coagulated on coumadin. He has been washing with Dial soap and witch ifrah. He had been using Collagen at times and using Calcium Alginate and covering with ABD pads during October. He was treated with 3M compression and Aquacel Ag. He was referred to the wound center for ongoing treatment. His ulcers have moderate to heavy drainage. He was in the hospital from 11/30/22 until 12/09/22 for treatment of cellulitis and edema. He underwent treatment with Vancomycin and IV lasix and compression. Discharged on 12/09/22. He returned to his assisted living apartment on Tuesday12/21/22. Subjective Subjective Mauricio is a 69-year-old male with longstanding history of chronic venous ulceration to the left lower extremity. Wound culture from 06/15/24 were positive for multiple bacteria and he completed antibiotic treatment. He has had decreased drainage this week. His edema is a little better this week and he has been using ABDs and Aquacel Extra. There has been improvement in his left medial ulcer overall this week. He is using MARCIO and size F Tubigrips for compression. 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 He continues to use his lymphedema pumps but continues to have pain with use of these pumps. Right lateral ulcer is larger and culture was positive for several bacteria and he completed treatmen but has had increased pain again.. Objective Data Objective Data Vital Signs: Vital Signs Temp Pulse Resp BP O2 Del Method 95.6 F L 64 18 135/67 H Room Air 11/23/24 09:27 11/23/24 09:27 11/23/24 09:27 11/23/24 09:27 11/23/24 09:27 Oxygen Delivery Method Room Air Lab / Micro Data Micro: Microbiology 11/16/24 11:11 Wound - Leg, Left Gram Stain - Final 11/16/24 11:11 Wound - Leg, Left Wound Culture - Final Enterobacter cloacae complex Escherichia hermannii Staphylococcus sciuri Corynebacterium striatum Acinetobacter baumannii 11/16/24 11:11 Wound - Leg, Left Anaerobic Culture - Final No anaerobic bacteria isolated. Physical Exam Const alert, oriented x3 and no apparent distress General Appearance: cooperative and comfortable HEENT normocephalic and head/scalp atraumatic Lymph Lymphatic: lymphedema moderate Resp normal respiratory effort Effort and Inspection: able to speak in complete sentences Cardio regular rate and regular rhythm Extremity Extremity Narrative: edema significantly increased today in b/l legs, ulcers painful and larger General Extremity: edema bilateral lower extremity Details: severe Skin General Skin Exam: venous stasis and dermatitis Wounds: wounds noted Wound Narrative: as in clinical panel, no cellulitis or odor, there is decreased depth, + granulation tissue right lateral ulcer with good granulation and minimal slough Psych mental status grossly normal, thought process normal, cooperative and affect normal Debridement Note Debridement Note Wound debrided: left medial LE ulcer Laterality: Left Type of Debridement: Excisional debridement Anesthesia Used: 5% Lidocaine Gel and Cetacaine Depth: Down to and including healthy tissue and in the subcutaneous layer Percentage of wound debrided: 100 Instrument Used: - (Misonix ultrasonic debridement) Tissue Removed: Yellow slough, devitalized tissue Severity: Fat Layer Exposed Amount of bleeding with debridement: Mild Bleeding Controlled with: Compression and gauze Patient tolerated procedure: Patient tolerated procedure well Post-Debridement Measurements and Additional Note: Post-Debridement Measurements/Treatment WC - Nurse 1 - General Ulcer Assessment Start: 11/16/24 10:12 Freq: Status: Active Protocol: ONDINA Activity Type Activity Date Activity User E-sign Co-sign Detail Recorded Client Recorded Date Recorded By Document 11/16/24 10:12 RB [id number] 11/16/24 11:04 RB Document 11/23/24 09:27 KW [id number] 11/23/24 09:40 KW 11/16/24 11/23/24 10:12 09:27 WC - Today's Visit Information Type of service Follow-up Visit Follow-up Visit (Physician/CAMPAIGN MANAGEMENT SPECIALIST (Physician/CAMPAIGN MANAGEMENT SPECIALIST ) ) Arrival Mode Ambulatory, Ambulatory, Walker Walker Transfer Assistance None Patient Identification Verified (Name & Yes Yes ) Patient Requires Transmission-Based No Precautions Vital Signs Temperature (97.8 F-99.1 F) 96.2 F L 95.6 F L Temperature Source Temporal Temporal Pulse Rate (60-100) 68 64 Pulse Location Monitor Monitor Respiratory Rate (12-18) 18 18 Respiratory rate source Observation Observation Oxygen Delivery Method Room Air Room Air Blood Pressure (90/60-120/80) 133/64 H 135/67 H Blood Pressure Mean (mm Hg) 87 89 Source Monitor Monitor Position Semi-Fowlers Semi-Fowlers Blood Pressure Location Left Arm Right Arm History Since Last Visit- (Skip if this is Patient's initial visit) Have you changed medications since your No No last visit? Any new allergies or adverse reactions No No Had a fall/change in ADL's that may No No increase risk of falls Signs or symptoms of abuse and/or No No neglect since last visit Have you been in the hospital since your No No last visit? Has dressing in place as prescribed Yes Yes Has compression in place as prescribed Yes Yes Has offloadiing in place as prescribed N/A N/A Experienced any changes in pain level or No No management Left Footwear Regular Shoe Regular Shoe Right Footwear Regular Shoe Regular Shoe Pain Scale: 0-10 Numeric Is Patient Pain Free? No Yes LLE -Description Aching -Intensity 8 -Duration (hours) Chronic -Pain Behavior Withdrawal from Touch -Pain Aggravating Factors Debridement -Alleviating Factors/Interventions Medication -Effectiveness of Alleviating Factor/ Moderately Intervention effective WC - Nurse 1 - General Ulcer Measurement Start: 11/16/24 10:12 Freq: Status: Active Protocol: Activity Type Activity Date Activity User E-sign Co-sign Detail Recorded Client Recorded Date Recorded By Document 11/16/24 10:12 RB [id number] 11/16/24 11:04 RB Document 11/23/24 09:27 KW [id number] 11/23/24 09:40 KW Edit Result 11/23/24 09:27 KW (1) [id number] 11/23/24 09:42 RB (1) #18 Left medial LE cluster - Temperature (Marie-wound Skin => No Abnormality (Pt Appearance) => Warm) - Tenderness on Palpation (Marie-wound => No Skin Appearance) - Ulcer Cleansing => Wound Cleanser - Foul Odor after Cleansing => No - Anesthetic Used => 5% Lidocaine Gel 11/16/24 11/23/24 10:12 09:27 Wound Center Nurse 1 #24 Left Lateral Leg -Combined with other wound No No -Current Size (cm) - Length 2.2 2.7 -Current Size (cm) - Width 1.8 1.5 -Current Size (cm) - Depth 0.1 0.1 -Total Square Cm 3.96 4.05 -Photo Taken Yes -Tunneling No No -Undermining/Tunneling No No -Circular Undermining No No -Exudate Amt Medium Medium -Exudate Type Serosanguineous Serosanguineous -Wound Margin Distinct, Distinct, Outline Outline Attached Attached -Granulation Amt Medium (34-66%) Medium (34-66%) -Granulation Quality Westgate Westgate -Slough/Fibrin Yes Yes -Necrosis Amt Medium (34-66%) Medium (34-66%) -Necrotic Tissue Type Adherent Slough Adherent Slough -Structure Exposed N/A N/A -Texture (Marie-wound Skin Appearance) Assessed, Assessed Friable -Moisture (Marie-wound Skin Appearance) Assessed Assessed -Color (Marie-wound Skin Appearance) Assessed, Hemosiderin Hemosiderin Staining Staining -Temperature (Marie-wound Skin No Abnormality No Abnormality Appearance) (Pt Warm) (Pt Warm) -Tenderness on Palpation (Marie-wound No No Skin Appearance) -Ulcer Cleansing Wound Cleanser Wound Cleanser -Foul Odor after Cleansing No No -Anesthetic Used 5% Lidocaine 5% Lidocaine Gel Gel #23 R Lat Leg -Combined with other wound No No -Current Size (cm) - Length 10.5 11 -Current Size (cm) - Width 6.4 8 -Current Size (cm) - Depth 0.1 0.1 -Total Square Cm 67.20 88 -Photo Taken Yes -Tunneling No No -Undermining/Tunneling No No -Circular Undermining No No -Exudate Amt Medium Medium -Exudate Type Serosanguineous Serosanguineous -Wound Margin Distinct, Distinct, Outline Outline Attached Attached -Granulation Amt Medium (34-66%) Medium (34-66%) -Granulation Quality West[place] Westgate -Slough/Fibrin Yes Yes -Necrosis Amt Medium (34-66%) Medium (34-66%) -Necrotic Tissue Type Adherent Slough Adherent Slough -Structure Exposed N/A N/A -Texture (Marie-wound Skin Appearance) Assessed, Assessed Friable -Moisture (Marie-wound Skin Appearance) Assessed Assessed -Color (Marie-wound Skin Appearance) Assessed, Hemosiderin Hemosiderin Staining Staining -Temperature (Marie-wound Skin No Abnormality No Abnormality Appearance) (Pt Warm) (Pt Warm) -Tenderness on Palpation (Marie-wound No No Skin Appearance) -Ulcer Cleansing Wound Cleanser Wound Cleanser -Foul Odor after Cleansing No No -Anesthetic Used 5% Lidocaine 5% Lidocaine Gel Gel #22 R Medial Leg -Combined with other wound No No -Current Size (cm) - Length 10.7 12 -Current Size (cm) - Width 4 10 -Current Size (cm) - Depth 0.1 0.1 -Total Square Cm 42.8 120 -Photo Taken Yes -Tunneling No No -Undermining/Tunneling No No -Circular Undermining No No -Exudate Amt Large Medium -Exudate Type Serosanguineous Serosanguineous -Wound Margin Distinct, Distinct, Outline Outline Attached Attached -Granulation Amt Medium (34-66%) Medium (34-66%) -Granulation Quality [place] Westgate -Slough/Fibrin Yes Yes -Necrosis Amt Medium (34-66%) Medium (34-66%) -Necrotic Tissue Type Adherent Slough Adherent Slough -Structure Exposed N/A N/A -Texture (Marie-wound Skin Appearance) Assessed, Assessed Friable -Moisture (Marie-wound Skin Appearance) Assessed Assessed -Color (Marie-wound Skin Appearance) Assessed, Assessed, Hemosiderin Hemosiderin Staining Staining -Temperature (Marie-wound Skin No Abnormality No Abnormality Appearance) (Pt Warm) (Pt Warm) -Tenderness on Palpation (Marie-wound No No Skin Appearance) -Ulcer Cleansing Wound Cleanser Wound Cleanser -Foul Odor after Cleansing No No -Anesthetic Used 5% Lidocaine 5% Lidocaine Gel Gel #18 Left medial LE cluster -Combined with other wound No No -Current Size (cm) - Length 18 9 -Current Size (cm) - Width 8 15.8 -Current Size (cm) - Depth 0.1 0.3 -Total Square Cm 144 142.2 -Photo Taken Yes -Tunneling No No -Undermining/Tunneling No No -Circular Undermining No No -Exudate Amt Medium Medium -Exudate Type Serosanguineous Serosanguineous -Wound Margin Distinct, Distinct, Outline Outline Attached Attached -Granulation Amt Medium (34-66%) Medium (34-66%) -Granulation Quality [place] Westgate -Slough/Fibrin Yes Yes -Necrosis Amt Medium (34-66%) Medium (34-66%) -Necrotic Tissue Type Adherent Slough Adherent Slough -Structure Exposed N/A N/A -Texture (Marie-wound Skin Appearance) Assessed, Assessed Friable, Scarring -Moisture (Marie-wound Skin Appearance) Assessed Assessed -Color (Amrie-wound Skin Appearance) Assessed, Hemosiderin Hemosiderin Staining Staining -Temperature (Marie-wound Skin No Abnormality No Abnormality Appearance) (Pt Warm) (Pt Warm) -Tenderness on Palpation (Marie-wound No No Skin Appearance) -Ulcer Cleansing Wound Cleanser Wound Cleanser -Foul Odor after Cleansing No No -Anesthetic Used 5% Lidocaine 5% Lidocaine Gel Gel Lower Limb Edema Present Yes Yes Right Calf (cm) 49.8 48 Right Ankle (cm) 30.8 30.5 Left Calf (cm) 47.5 43 Left Ankle (cm) 31 29 WC - Nurse 2 - General Ulcer CM Notes Start: 11/16/24 10:12 Freq: Status: Active Protocol: Activity Type Activity Date Activity User E-sign Co-sign Detail Recorded Client Recorded Date Recorded By Document 11/16/24 11:05 [id number] 11/16/24 11:19 Document 11/23/24 10:33 [id number] 11/23/24 10:48 11/16/24 11/23/24 11:05 10:33 Wound Center Nurse 2 #24 Left Lateral Leg -Time 11:06 10:37 -Correct Patient Yes Yes -Correct Side, Site, Position Yes Yes -Correct Procedure Yes Yes -Procedure Performed Yes Yes -Type of Procedure Debridement Debridement -Clinical Debridement Subcutaneous Subcutaneous -Tissue Removed Subcutaneous Subcutaneous -Post Debridement (cm) - Length 8.8 2.7 -Post Debridement (cm) - Width 14.4 1.7 -Post Debridement (cm) - Depth 0.1 0.1 -Total Square (Post) (cm) 126.72 4.59 -Area of Debridement (cm) - Length 8.8 2.7 -Area of Debridement (cm) - Width 14.4 1.7 -Total Square (Area) (cm) 126.72 4.59 -Tunneling No No -Undermining/Tunneling No No -Circular Undermining No No -Wound/Ulcer Outcome Not Healed Not Healed -Ulcer Cleansing Rinsed/ Rinsed/ Irrigated with Irrigated with Saline Saline -Foul Odor after Cleansing No No -Bioengineered Tissue No No -Bleeding Controlled with Pressure Pressure -Treatment Response Procedure Procedure Tolerated Well Tolerated Well -Debridement - Subq, 1st 20sq cm No No #23 R Lat Leg -Time 11:06 10:37 -Correct Patient Yes Yes -Correct Side, Site, Position Yes Yes -Correct Procedure Yes Yes -Procedure Performed Yes Yes -Type of Procedure Debridement Debridement -Clinical Debridement Subcutaneous Subcutaneous -Tissue Removed Subcutaneous Subcutaneous -Post Debridement (cm) - Length 10.0 10.5 -Post Debridement (cm) - Width 7.3 8.0 -Post Debridement (cm) - Depth 0.1 0.1 -Total Square (Post) (cm) 73.00 84.00 -Area of Debridement (cm) - Length 10.0 10.5 -Area of Debridement (cm) - Width 7.3 8.0 -Total Square (Area) (cm) 73.00 84.00 -Tunneling No No -Undermining/Tunneling No No -Circular Undermining No No -Wound/Ulcer Outcome Not Healed Not Healed -Ulcer Cleansing Rinsed/ Rinsed/ Irrigated with Irrigated with Saline Saline -Foul Odor after Cleansing No No -Bioengineered Tissue No No -Bleeding Controlled with Pressure Pressure -Treatment Response Procedure Procedure Tolerated Well Tolerated Well -Debridement - Subq, 1st 20sq cm No No #22 R Medial Leg -Time 11:07 10:38 -Correct Patient Yes Yes -Correct Side, Site, Position Yes Yes -Correct Procedure Yes Yes -Procedure Performed Yes Yes -Type of Procedure Debridement Debridement -Clinical Debridement Subcutaneous Subcutaneous -Tissue Removed Subcutaneous Subcutaneous -Post Debridement (cm) - Length 11.5 11.8 -Post Debridement (cm) - Width 4.0 4.0 -Post Debridement (cm) - Depth 0.1 0.1 -Total Square (Post) (cm) 46.00 47.20 -Area of Debridement (cm) - Length 11.5 11.8 -Area of Debridement (cm) - Width 4.0 4.0 -Total Square (Area) (cm) 46.00 47.20 -Tunneling No No -Undermining/Tunneling No No -Circular Undermining No No -Wound/Ulcer Outcome Not Healed Not Healed -Ulcer Cleansing Rinsed/ Rinsed/ Irrigated with Irrigated with Saline Saline -Foul Odor after Cleansing No No -Bioengineered Tissue No No -Bleeding Controlled with Pressure Pressure -Treatment Response Procedure Procedure Tolerated Well Tolerated Well -Offloading No -Debridement - Subq, 1st 20sq cm No No #18 Left medial LE cluster -Time 11:08 10:39 -Correct Patient Yes Yes -Correct Side, Site, Position Yes Yes -Correct Procedure Yes Yes -Procedure Performed Yes Yes -Type of Procedure Debridement Debridement -Clinical Debridement Subcutaneous Subcutaneous -Tissue Removed Subcutaneous Subcutaneous -Post Debridement (cm) - Length 2.4 9.1 -Post Debridement (cm) - Width 1.6 13.0 -Post Debridement (cm) - Depth 0.1 0.1 -Total Square (Post) (cm) 3.84 118.30 -Area of Debridement (cm) - Length 2.4 9.1 -Area of Debridement (cm) - Width 1.6 13.0 -Total Square (Area) (cm) 3.84 118.30 -Tunneling No No -Undermining/Tunneling No No -Circular Undermining No No -Wound/Ulcer Outcome Not Healed Not Healed -Ulcer Cleansing Rinsed/ Rinsed/ Irrigated with Irrigated with Saline Saline -Foul Odor after Cleansing No No -Bioengineered Tissue No No -Bleeding Controlled with Pressure Pressure -Treatment Response Procedure Procedure Tolerated Well Tolerated Well -Debridement - Subq, 1st 20sq cm Yes Yes -Debridement, SubQ, ea addt'l 20sq cm 12 12 or part thereof Pain Scale: 0-10 Numeric Is Patient Pain Free? Yes Yes WC - Nurse 3 - General Ulcer D/C NN Start: 11/16/24 10:12 Freq: Status: Active Protocol: Activity Type Activity Date Activity User E-sign Co-sign Detail Recorded Client Recorded Date Recorded By Document 11/16/24 12:00 KW [id number] 11/16/24 12:01 KW Document 11/23/24 12:21 RB [id number] 11/23/24 12:24 RB 11/16/24 11/23/24 12:00 12:21 Wound Care Center Nurse 3 #24 Left Lateral Leg -Other Dressing hydrogel -Primary Dressing Covered/Secured with Dry Gauze & Dry Gauze,Dry Roll Gauze, Gauze & Roll Secured with Gauze,Secured Tape with Tape -Other Covering ABD #23 R Lat Leg -Ulcer Cleansing Rinsed/ Irrigated with Saline -Primary Dressing Applied Aquacel Extra -Other Dressing aquacel ag ABD -Primary Dressing Covered/Secured with Dry Gauze Dry Gauze & Roll Gauze -Aquacel Extra 1 #22 R Medial Leg -Ulcer Cleansing Rinsed/ Irrigated with Saline -Primary Dressing Applied Aquacel AG 4x4 Aquacel Extra -Other Dressing ABD -Primary Dressing Covered/Secured with Dry Gauze & Dry Gauze & Roll Gauze, Roll Gauze Secured with Tape -Aquacel Extra 1 -Aquacel AG 4x4 1 #18 Left medial LE cluster -Other Dressing hydrogel/ABD -Primary Dressing Covered/Secured with Dry Gauze & Dry Gauze & Roll Gauze, Roll Gauze, Secured with Secured with Tape Tape wili -Compression Wrap Marcio Wrap -Tubular Bandage Single Layer -Size of Tubigrip Used Size F -Size F ($) 2 -Other 2 marcio Right -Tubular Bandage Single Layer -Size of Tubigrip Used Size E -Size E ($) 1 Left -Tubular Bandage Single Layer -Size of Tubigrip Used Size E -Size E ($) 1 Treatment Response Procedure Tolerated Well Pain Scale: 0-10 Numeric Is Patient Pain Free? Yes Yes Teaching: Wound Center Control Swelling with Leg Elevation -Person Taught Patient -Teaching Method Discussion, Demonstration -Response to teaching Verbalize Understanding WC - Visit Discharge Discharge Condition Stable Stable Ambulatory Status Ambulatory, Ambulatory, Walker Walker Transportation Private Auto Medication Reconcilliation completed & No No provided to patient/care provider Clinical Summary of Care Provided Yes Yes Additional Wound Wound debrided: right lateral leg Laterality: Right Type of Debridement: Excisional debridement Anesthesia Used: 5% Lidocaine Gel and Cetacaine Depth: Down to and including healthy tissue and in the subcutaneous layer Percentage of wound debrided: 100 Instrument Used: - (Misonix ultrasonic debridement) Tissue Removed: Yellow slough, devitalized tissue Severity: Fat Layer Exposed Amount of bleeding with debridement: Mild Bleeding Controlled with: Compression and gauze Patient tolerated procedure: Patient tolerated procedure well Additional Wound Wound debrided: right medial leg Laterality: Right Type of Debridement: Excisional debridement Anesthesia Used: 5% Lidocaine Gel and Cetacaine Depth: Down to and including healthy tissue and in the subcutaneous layer Percentage of wound debrided: 100 Instrument Used: - (Misonix ultrasonic debridement) Tissue Removed: Yellow slough, devitalized tissue Severity: Fat Layer Exposed Amount of bleeding with debridement: Mild Bleeding Controlled with: Compression and gauze Patient tolerated procedure: Patient tolerated procedure well Assessment/Plan Assessment/Plan (1) Lymphedema: CODE(S): I89.0 - Lymphedema, not elsewhere classified (2) Hypertension: CODE(S): I10 - Essential (primary) hypertension QUALIFIERS: Hypertension type: primary hypertension Qualified Code(s): I10 - Essential (primary) hypertension (3) Hyperlipidemia: CODE(S): E78.5 - Hyperlipidemia, unspecified QUALIFIERS: Hyperlipidemia type: mixed hyperlipidemia Qualified Code(s): E78.2 - Mixed hyperlipidemia (4) History of DVT (deep vein thrombosis): CODE(S): Z86.718 - Personal history of other venous thrombosis and embolism (5) Venous insufficiency (chronic) (peripheral): CODE(S): I87.2 - Venous insufficiency (chronic) (peripheral) (6) Venous ulcer of left lower extremity with varicose veins: CODE(S): I83.029 - Varicose veins of left lower extremity with ulcer of unspecified site (7) Edema: CODE(S): R60.9 - Edema, unspecified QUALIFIERS: Edema type: unspecified Qualified Code(s): R60.9 - Edema, unspecified (8) Venous ulcer of right lower extremity with varicose veins: CODE(S): I83.019 - Varicose veins of right lower extremity with ulcer of unspecified site; L97.919 - Non-pressure chronic ulcer of unspecified part of right lower leg with unspecified severity (9) Ulcer of left lower extremity with fat layer exposed: CODE(S): L97.922 - Non-pressure chronic ulcer of unspecified part of left lower leg with fat layer exposed PLAN: Plan Evaluation and debridement of left medial LE ulcer performed today in clinic as annotated above. At home wound-care instructions: Will have him use Fibracol changed daily to left medial LE. Right lateral LE will have him use Calcium alginate changed daily. Continue compression with F tubigrips b/l. Due to his chronic lymphedema and being unable to don traditional compression stockings and the presence of venous ulcers on his LE b/l, it is medically necessary for him to have Circaid compression garments. These are being ordered. I suspect he is not very compliant with his lymphedema pumps and not getting adequate compression with tubigrips. Due to the delayed progress in wound healing of his venous ulcers, we discussed applying for advanced wound healing product for healing his ulcer. Due to the size of his ulcer, Theraskin application approval was requested from his insurance as it is medically necessary for salvaging his limb and healing his ulcer. He underwent 2 applications of Theraskin to this ulcer. Since application of Theraskin he has had much improvement in epithelialization of his ulcer even though the overall size is not significantly changed there is progress. Off-loading: The patient was instructed to avoid pressure and friction on the affected areas. Reposition every 2 hours at minimum. Avoid prolonged standing and/or dangling of legs. When seated, feet should be elevated at chest level. Frequent ambulation is encouraged. Encouraged lymphedema pump use. Diet: Patient encouraged to increase protein intake while taking caution to avoid high carbohydrate and/or sugar intake. Labs/cultures/imaging: Wound culture showed Pseudomonas, Escherichia hermannii, Raoultella planticola, Vancomycin Resist. E. faecalis, Alcaligenes faecalis ssp faeca, Staphylococcus cohnii urealyti and anaerobic bacteria on 06/15/24 and he completed on Levofloxacin and Augmentin. Wound culture taken today on right lateral ulcer which showed Raoultella planticola, Staph hemolyticus, staph epidermidis and morganella morganii but no anaeroobic bacteria, Levofloxacin and doxycyline were prescribed based on culture results. Labs ordered 10/19/2024. Vitamin D was low A1C 5.4% Wound culture showed Enterobacter cloacae complex, Escherichia hermannii, Staphylococcus sciuri, Corynebacterium striatum, Acinetobacter baumannii and he has been prescribed Levofloxacin for treatment. Follow-up: Return in 1 week for wound care follow up and have dressing changed by home health Tuesday and Tuesday. Return sooner or report to the emergency room should symptoms worsen, or new symptoms arise. Note: Diana speech recognition fiber optics technician software was used to create portions of this document. Sound-alike and misspelled words, as well as other fiber optics technician errors may be contained in the documentation.
[2024-12-07 10:07] VITALS: BP 130/70; PULSE 77; RESP 18; TEMP 35.4
--- NOTE | 2024-12-07 14:59 | PCM.WC.PN ---
History of Present Illness Date of Service: 12/07/24 Chief Complaint: venous ulcers of left lower extremity History of Wound: Mauricio is a 69 yo gentleman who is here today for evaluation of ulcers to to his bilateral lower legs. He has been treated multiple times in the past at the wound healing center for similar ulcers. The left LE ulcer started after he developed increased swelling and blisters of left leg in October and the right leg started sometime at the end of October. He was seen at PCP's office a culture was taken and it was resistant to several antibiotics. He was treated initially with Levaquin but had myalgias and then was treated with doxycycline which he finished 2 days ago. He denies improvement and is having swelling to his left calf and thigh. He has been having swelling to both lower extremities for many years and it has worsened over the last few months. He has not been compliant with compression. He has had increased pain especially in the left leg. He has clear yellow drainage and redness without odor or warmth. He is anti-coagulated on coumadin. He has been washing with Dial soap and witch ifrah. He had been using Collagen at times and using Calcium Alginate and covering with ABD pads during October. He was treated with 3M compression and Aquacel Ag. He was referred to the wound center for ongoing treatment. His ulcers have moderate to heavy drainage. He was in the hospital from 11/30/22 until 12/09/22 for treatment of cellulitis and edema. He underwent treatment with Vancomycin and IV lasix and compression. Discharged on 12/09/22. He returned to his assisted living apartment on Tuesday12/21/22. Subjective Subjective Mauricio is a 69-year-old male with longstanding history of chronic venous ulceration to the left lower extremity and ulcer of right lower extremity that has been present since 09/28/24. He had a fall last week and missed his weekly wound care visit. He returns today with severely increased swelling and odor and worsening of cellulitis of his right lower extremity as well as increased edema and worsening of his left lower leg ulcer. He reports feeling fatigued, achy and unwell. Objective Data Objective Data Vital Signs: Vital Signs Temp Pulse Resp BP O2 Del Method 95.7 F L 77 18 130/70 H Room Air 12/07/24 10:07 12/07/24 10:12/07/24 10:12/07/24 10:07 11/23/24 09:27 Oxygen Delivery Method Room Air Lab / Micro Data Micro: Microbiology 11/16/24 11:11 Wound - Leg, Left Gram Stain - Final 11/16/24 11:11 Wound - Leg, Left Wound Culture - Final Enterobacter cloacae complex Escherichia hermannii Staphylococcus sciuri Corynebacterium striatum Acinetobacter baumannii 11/16/24 11:11 Wound - Leg, Left Anaerobic Culture - Final No anaerobic bacteria isolated. Physical Exam Const alert, oriented x3 and no apparent distress General Appearance: cooperative and comfortable HEENT normocephalic and head/scalp atraumatic Lymph Lymphatic: lymphedema moderate Resp normal respiratory effort Effort and Inspection: able to speak in complete sentences Cardio regular rate and regular rhythm Extremity Extremity Narrative: edema significantly increased today in b/l legs, ulcers painful and larger General Extremity: edema bilateral lower extremity Details: severe Skin General Skin Exam: venous stasis and dermatitis Wounds: wounds noted Wound Narrative: as in clinical panel, + odor, devitalized tissue, there is increased depth, + granulation tissue right lateral ulcer with good granulation and minimal slough Psych mental status grossly normal, thought process normal, cooperative and affect normal Debridement Note Debridement Note No debridement was completed: No debridement was completed today (Patient referred to ER) Post-Debridement Measurements and Additional Note: Post-Debridement Measurements/Treatment - Nurse 1 - General Ulcer Assessment Start: 11/16/24 10:12 Freq: Status: Active Protocol: DEBBIE.LOWDIPKIAT Activity Type Activity Date Activity User E-sign Co-sign Detail Recorded Client Recorded Date Recorded By Document 11/16/24 10:12 RB [id number] 11/16/24 11:04 RB Document 11/23/24 09:27 KW [id number] 11/23/24 09:40 KW Document 12/07/24 10:07 RB [id number] 12/07/24 10:11 RB 11/16/24 11/23/24 12/07/24 10:12 09:27 10:07 - Today's Visit Information Type of service Follow-up Visit Follow-up Visit Follow-up Visit (Physician/ARCH CUSHION PRESS OPERATOR (Physician/ARCH CUSHION PRESS OPERATOR (Physician/ARCH CUSHION PRESS OPERATOR ) ) ) Arrival Mode Ambulatory, Ambulatory, Ambulatory, Walker Walker Walker Transfer Assistance None None Patient Identification Verified (Name & Yes Yes Yes ) Patient Requires Transmission-Based No No Precautions Vital Signs Temperature (97.8 F-99.1 F) 96.2 F L 95.6 F L 95.7 F L Temperature Source Temporal Temporal Temporal Pulse Rate (60-100) 68 64 77 Pulse Location Monitor Monitor Monitor Respiratory Rate (12-18) 18 18 18 Respiratory rate source Observation Observation Observation Oxygen Delivery Method Room Air Room Air Blood Pressure (90/60-120/80) 133/64 H 135/67 H 130/70 H Blood Pressure Mean (mm Hg) 87 89 90 Source Monitor Monitor Monitor Position Semi-Fowlers Semi-Fowlers Semi-Fowlers Blood Pressure Location Left Arm Right Arm Left Arm History Since Last Visit- (Skip if this is Patient's initial visit) Have you changed medications since your No No No last visit? Any new allergies or adverse reactions No No No Had a fall/change in ADL's that may No No No increase risk of falls Signs or symptoms of abuse and/or No No No neglect since last visit Have you been in the hospital since your No No No last visit? Has dressing in place as prescribed Yes Yes Yes Has compression in place as prescribed Yes Yes Yes Has offloadiing in place as prescribed N/A N/A N/A Experienced any changes in pain level or No No No management Left Footwear Regular Shoe Regular Shoe Right Footwear Regular Shoe Regular Shoe Pain Scale: 0-10 Numeric Is Patient Pain Free? No Yes No LLE -Description Aching Aching -Intensity 8 6 -Duration (hours) Chronic Acute -Pain Behavior Withdrawal from Guarding, Touch Irritability -Pain Aggravating Factors Debridement Exercise/ Activity, Debridement -Alleviating Factors/Interventions Medication Medication -Effectiveness of Alleviating Factor/ Moderately Moderately Intervention effective effective WC - Nurse 1 - General Ulcer Measurement Start: 11/16/24 10:12 Freq: Status: Active Protocol: Activity Type Activity Date Activity User E-sign Co-sign Detail Recorded Client Recorded Date Recorded By Document 11/16/24 10:12 RB [id number] 11/16/24 11:04 RB Document 11/23/24 09:27 KW [id number] 11/23/24 09:40 KW Edit Result 11/23/24 09:27 KW (1) [id number] 11/23/24 09:42 RB Document 12/07/24 10:07 RB [id number] 12/07/24 10:11 RB (1) #18 Left medial LE cluster - Temperature (Marie-wound Skin => No Abnormality (Pt Appearance) => Warm) - Tenderness on Palpation (Marie-wound => No Skin Appearance) - Ulcer Cleansing => Wound Cleanser - Foul Odor after Cleansing => No - Anesthetic Used => 5% Lidocaine Gel 11/16/24 11/23/24 12/07/24 10:12 09:27 10:07 Wound Center Nurse 1 #24 Left Lateral Leg -Combined with other wound No No No -Current Size (cm) - Length 2.2 2.7 0.6 -Current Size (cm) - Width 1.8 1.5 0.9 -Current Size (cm) - Depth 0.1 0.1 0.1 -Total Square Cm 3.96 4.05 0.54 -Photo Taken Yes Yes -Tunneling No No No -Undermining/Tunneling No No No -Circular Undermining No No No -Exudate Amt Medium Medium Large -Exudate Type Serosanguineous Serosanguineous Serosanguineous -Wound Margin Distinct, Distinct, Thickened & Outline Outline Rolled Under Attached Attached -Granulation Amt Medium (34-66%) Medium (34-66%) Large (67-100%) -Granulation Quality Cibolo Cibolo Cibolo -Slough/Fibrin Yes Yes Yes -Necrosis Amt Medium (34-66%) Medium (34-66%) Medium (34-66%) -Necrotic Tissue Type Adherent Slough Adherent Slough Adherent Slough -Structure Exposed N/A N/A N/A -Texture (Marie-wound Skin Appearance) Assessed, Assessed Assessed, Friable Scarring -Moisture (Marie-wound Skin Appearance) Assessed Assessed Assessed -Color (Marie-wound Skin Appearance) Assessed, Hemosiderin Assessed Hemosiderin Staining Staining -Temperature (Marie-wound Skin No Abnormality No Abnormality No Abnormality Appearance) (Pt Warm) (Pt Warm) (Pt Warm) -Tenderness on Palpation (Marie-wound No No No Skin Appearance) -Ulcer Cleansing Wound Cleanser Wound Cleanser Wound Cleanser -Foul Odor after Cleansing No No No -Anesthetic Used 5% Lidocaine 5% Lidocaine 5% Lidocaine Gel Gel Gel #23 R Lat Leg -Combined with other wound No No No -Current Size (cm) - Length 10.5 11 10.5 -Current Size (cm) - Width 6.4 8 14 -Current Size (cm) - Depth 0.1 0.1 0.2 -Total Square Cm 67.20 88 147.0 -Photo Taken Yes Yes -Tunneling No No No -Undermining/Tunneling No No No -Circular Undermining No No No -Exudate Amt Medium Medium Large -Exudate Type Serosanguineous Serosanguineous Serosanguineous -Wound Margin Distinct, Distinct, Thickened & Outline Outline Rolled Under Attached Attached -Granulation Amt Medium (34-66%) Medium (34-66%) Medium (34-66%) -Granulation Quality Cibolo Cibolo Cibolo -Slough/Fibrin Yes Yes Yes -Necrosis Amt Medium (34-66%) Medium (34-66%) Medium (34-66%) -Necrotic Tissue Type Adherent Slough Adherent Slough Adherent Slough -Structure Exposed N/A N/A N/A -Texture (Marie-wound Skin Appearance) Assessed, Assessed Scarring Friable -Moisture (Marie-wound Skin Appearance) Assessed Assessed Assessed -Color (Marie-wound Skin Appearance) Assessed, Hemosiderin Assessed Hemosiderin Staining Staining -Temperature (Marie-wound Skin No Abnormality No Abnormality No Abnormality Appearance) (Pt Warm) (Pt Warm) (Pt Warm) -Tenderness on Palpation (Marie-wound No No No Skin Appearance) -Ulcer Cleansing Wound Cleanser Wound Cleanser Wound Cleanser -Foul Odor after Cleansing No No No -Anesthetic Used 5% Lidocaine 5% Lidocaine 5% Lidocaine Gel Gel Gel #22 R Medial Leg -Combined with other wound No No No -Current Size (cm) - Length 10.7 12 12 -Current Size (cm) - Width 4 10 15.5 -Current Size (cm) - Depth 0.1 0.1 0.2 -Total Square Cm 42.8 120 186.0 -Photo Taken Yes Yes -Tunneling No No No -Undermining/Tunneling No No No -Circular Undermining No No No -Exudate Amt Large Medium Large -Exudate Type Serosanguineous Serosanguineous Serosanguineous -Wound Margin Distinct, Distinct, Thickened & Outline Outline Rolled Under Attached Attached -Granulation Amt Medium (34-66%) Medium (34-66%) Medium (34-66%) -Granulation Quality Cibolo Cibolo Cibolo -Slough/Fibrin Yes Yes Yes -Necrosis Amt Medium (34-66%) Medium (34-66%) Medium (34-66%) -Necrotic Tissue Type Adherent Slough Adherent Slough Adherent Slough -Structure Exposed N/A N/A N/A -Texture (Marie-wound Skin Appearance) Assessed, Assessed Assessed, Friable Scarring -Moisture (Marie-wound Skin Appearance) Assessed Assessed Assessed -Color (Marie-wound Skin Appearance) Assessed, Assessed, Assessed Hemosiderin Hemosiderin Staining Staining -Temperature (Marie-wound Skin No Abnormality No Abnormality No Abnormality Appearance) (Pt Warm) (Pt Warm) (Pt Warm) -Tenderness on Palpation (Marie-wound No No No Skin Appearance) -Ulcer Cleansing Wound Cleanser Wound Cleanser Wound Cleanser -Foul Odor after Cleansing No No No -Anesthetic Used 5% Lidocaine 5% Lidocaine 5% Lidocaine Gel Gel Gel #18 Left medial LE cluster -Combined with other wound No No No -Current Size (cm) - Length 18 9 9.5 -Current Size (cm) - Width 8 15.8 15 -Current Size (cm) - Depth 0.1 0.3 0.3 -Total Square Cm 144 142.2 142.5 -Photo Taken Yes Yes -Tunneling No No No -Undermining/Tunneling No No No -Circular Undermining No No No -Exudate Amt Medium Medium Large -Exudate Type Serosanguineous Serosanguineous Serosanguineous -Wound Margin Distinct, Distinct, Thickened & Outline Outline Rolled Under Attached Attached -Granulation Amt Medium (34-66%) Medium (34-66%) Medium (34-66%) -Granulation Quality Cibolo Cibolo Cibolo -Slough/Fibrin Yes Yes Yes -Necrosis Amt Medium (34-66%) Medium (34-66%) Medium (34-66%) -Necrotic Tissue Type Adherent Slough Adherent Slough Adherent Slough -Structure Exposed N/A N/A N/A -Texture (Marie-wound Skin Appearance) Assessed, Assessed Assessed, Friable, Scarring Scarring -Moisture (Marie-wound Skin Appearance) Assessed Assessed Assessed -Color (Marie-wound Skin Appearance) Assessed, Hemosiderin Assessed, Hemosiderin Staining Erythema Staining -Temperature (Marie-wound Skin No Abnormality No Abnormality No Abnormality Appearance) (Pt Warm) (Pt Warm) (Pt Warm) -Tenderness on Palpation (Marie-wound No No No Skin Appearance) -Ulcer Cleansing Wound Cleanser Wound Cleanser Wound Cleanser -Foul Odor after Cleansing No No No -Anesthetic Used 5% Lidocaine 5% Lidocaine 5% Lidocaine Gel Gel Gel Lower Limb Edema Present Yes Yes Right Calf (cm) 49.8 48 Right Ankle (cm) 30.8 30.5 Left Calf (cm) 47.5 43 Left Ankle (cm) 31 29 WC - Nurse 2 - General Ulcer CM Notes Start: 11/16/24 10:12 Freq: Status: Active Protocol: Activity Type Activity Date Activity User E-sign Co-sign Detail Recorded Client Recorded Date Recorded By Document 11/16/24 11:05 [id number] 11/16/24 11:19 Document 11/23/24 10:33 [id number] 11/23/24 10:48 Document 12/07/24 10:24 [id number] 12/07/24 10:26 11/16/24 11/23/24 12/07/24 11:05 10:33 10:24 Wound Center Nurse 2 #24 Left Lateral Leg -Time 11:06 10:37 10:24 -Correct Patient Yes Yes Yes -Correct Side, Site, Position Yes Yes Yes -Correct Procedure Yes Yes No -Procedure Performed Yes Yes No -Type of Procedure Debridement Debridement -Clinical Debridement Subcutaneous Subcutaneous -Tissue Removed Subcutaneous Subcutaneous -Post Debridement (cm) - Length 8.8 2.7 -Post Debridement (cm) - Width 14.4 1.7 -Post Debridement (cm) - Depth 0.1 0.1 -Total Square (Post) (cm) 126.72 4.59 -Area of Debridement (cm) - Length 8.8 2.7 -Area of Debridement (cm) - Width 14.4 1.7 -Total Square (Area) (cm) 126.72 4.59 -Tunneling No No No -Undermining/Tunneling No No No -Circular Undermining No No No -Wound/Ulcer Outcome Not Healed Not Healed Not Healed -Ulcer Cleansing Rinsed/ Rinsed/ Irrigated with Irrigated with Saline Saline -Foul Odor after Cleansing No No No -Bioengineered Tissue No No No -Bleeding Controlled with Pressure Pressure NA -Treatment Response Procedure Procedure Tolerated Well Tolerated Well -Debridement - Subq, 1st 20sq cm No No -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) sending to ED #23 R Lat Leg -Time 11:06 10:37 10:24 -Correct Patient Yes Yes Yes -Correct Side, Site, Position Yes Yes Yes -Correct Procedure Yes Yes No -Procedure Performed Yes Yes No -Type of Procedure Debridement Debridement -Clinical Debridement Subcutaneous Subcutaneous -Tissue Removed Subcutaneous Subcutaneous -Post Debridement (cm) - Length 10.0 10.5 -Post Debridement (cm) - Width 7.3 8.0 -Post Debridement (cm) - Depth 0.1 0.1 -Total Square (Post) (cm) 73.00 84.00 -Area of Debridement (cm) - Length 10.0 10.5 -Area of Debridement (cm) - Width 7.3 8.0 -Total Square (Area) (cm) 73.00 84.00 -Tunneling No No No -Undermining/Tunneling No No No -Circular Undermining No No No -Wound/Ulcer Outcome Not Healed Not Healed Not Healed -Ulcer Cleansing Rinsed/ Rinsed/ Irrigated with Irrigated with Saline Saline -Foul Odor after Cleansing No No No -Bioengineered Tissue No No No -Bleeding Controlled with Pressure Pressure NA -Treatment Response Procedure Procedure Tolerated Well Tolerated Well -Debridement - Subq, 1st 20sq cm No No -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) sending to ED #22 R Medial Leg -Time 11:07 10:38 10:25 -Correct Patient Yes Yes No -Correct Side, Site, Position Yes Yes No -Correct Procedure Yes Yes No -Procedure Performed Yes Yes No -Type of Procedure Debridement Debridement -Clinical Debridement Subcutaneous Subcutaneous -Tissue Removed Subcutaneous Subcutaneous -Post Debridement (cm) - Length 11.5 11.8 -Post Debridement (cm) - Width 4.0 4.0 -Post Debridement (cm) - Depth 0.1 0.1 -Total Square (Post) (cm) 46.00 47.20 -Area of Debridement (cm) - Length 11.5 11.8 -Area of Debridement (cm) - Width 4.0 4.0 -Total Square (Area) (cm) 46.00 47.20 -Tunneling No No No -Undermining/Tunneling No No No -Circular Undermining No No No -Wound/Ulcer Outcome Not Healed Not Healed Not Healed -Ulcer Cleansing Rinsed/ Rinsed/ Irrigated with Irrigated with Saline Saline -Foul Odor after Cleansing No No No -Bioengineered Tissue No No No -Bleeding Controlled with Pressure Pressure NA -Treatment Response Procedure Procedure Tolerated Well Tolerated Well -Offloading No -Debridement - Subq, 1st 20sq cm No No -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) Going to ED #18 Left medial LE cluster -Time 11:08 10:39 10:25 -Correct Patient Yes Yes Yes -Correct Side, Site, Position Yes Yes Yes -Correct Procedure Yes Yes No -Procedure Performed Yes Yes No -Type of Procedure Debridement Debridement -Clinical Debridement Subcutaneous Subcutaneous -Tissue Removed Subcutaneous Subcutaneous -Post Debridement (cm) - Length 2.4 9.1 -Post Debridement (cm) - Width 1.6 13.0 -Post Debridement (cm) - Depth 0.1 0.1 -Total Square (Post) (cm) 3.84 118.30 -Area of Debridement (cm) - Length 2.4 9.1 -Area of Debridement (cm) - Width 1.6 13.0 -Total Square (Area) (cm) 3.84 118.30 -Tunneling No No No -Undermining/Tunneling No No No -Circular Undermining No No No -Wound/Ulcer Outcome Not Healed Not Healed Not Healed -Ulcer Cleansing Rinsed/ Rinsed/ Not Cleansed Irrigated with Irrigated with Saline Saline -Foul Odor after Cleansing No No No -Bioengineered Tissue No No No -Bleeding Controlled with Pressure Pressure NA -Treatment Response Procedure Procedure Tolerated Well Tolerated Well -Debridement - Subq, 1st 20sq cm Yes Yes -Debridement, SubQ, ea addt'l 20sq cm 12 12 or part thereof -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) going to ED Pain Scale: 0-10 Numeric Is Patient Pain Free? Yes Yes Yes WC - Nurse 3 - General Ulcer D/C NN Start: 11/16/24 10:12 Freq: Status: Active Protocol: Activity Type Activity Date Activity User E-sign Co-sign Detail Recorded Client Recorded Date Recorded By Document 11/16/24 12:00 KW [id number] 11/16/24 12:01 KW Document 11/23/24 12:21 RB [id number] 11/23/24 12:24 RB Document 12/07/24 10:42 RB [id number] 12/07/24 10:43 RB 11/16/24 11/23/24 12/07/24 12:00 12:21 10:42 Wound Care Center Nurse 3 #24 Left Lateral Leg -Other Dressing hydrogel -Primary Dressing Covered/Secured with Dry Gauze & Dry Gauze,Dry Roll Gauze, Gauze & Roll Secured with Gauze,Secured Tape with Tape -Other Covering ABD #23 R Lat Leg -Ulcer Cleansing Rinsed/ Irrigated with Saline -Primary Dressing Applied Aquacel Extra -Other Dressing aquacel ag ABD -Primary Dressing Covered/Secured with Dry Gauze Dry Gauze & Roll Gauze -Aquacel Extra 1 #22 R Medial Leg -Ulcer Cleansing Rinsed/ Irrigated with Saline -Primary Dressing Applied Aquacel AG 4x4 Aquacel Extra -Other Dressing ABD -Primary Dressing Covered/Secured with Dry Gauze & Dry Gauze & Roll Gauze, Roll Gauze Secured with Tape -Aquacel Extra 1 -Aquacel AG 4x4 1 #18 Left medial LE cluster -Other Dressing hydrogel/ABD -Primary Dressing Covered/Secured with Dry Gauze & Dry Gauze & Roll Gauze, Roll Gauze, Secured with Secured with Tape Tape wili -Compression Wrap Kishore Wrap -Tubular Bandage Single Layer -Size of Tubigrip Used Size F -Size F ($) 2 -Other 2 kishore Right -Tubular Bandage Single Layer -Size of Tubigrip Used Size E -Size E ($) 1 Left -Tubular Bandage Single Layer -Size of Tubigrip Used Size E -Size E ($) 1 Treatment Response Procedure Tolerated Well Pain Scale: 0-10 Numeric Is Patient Pain Free? Yes Yes No LLE -Description Aching -Intensity 6 -Alleviating Factors/Interventions Medication Teaching: Wound Center Control Swelling with Leg Elevation -Person Taught Patient -Teaching Method Discussion, Demonstration -Response to teaching Verbalize Understanding WC - Visit Discharge Discharge Condition Stable Stable Stable Ambulatory Status Ambulatory, Ambulatory, Stretcher Walker Walker Transportation Private Auto Ambulance Medication Reconcilliation completed & No No No provided to patient/care provider Clinical Summary of Care Provided Yes Yes Yes Notes: pt sent to ED per Dr Mary akins per squad #24 Left Lateral Leg -Primary Dressing Covered/Secured with Dry Gauze & Roll Gauze, Secured with Tape #23 R Lat Leg -Primary Dressing Covered/Secured with Dry Gauze & Roll Gauze, Secured with Tape #22 R Medial Leg -Primary Dressing Covered/Secured with Dry Gauze,Dry Gauze & Roll Gauze,Secured with Tape #18 Left medial LE cluster -Primary Dressing Covered/Secured with Dry Gauze & Roll Gauze, Secured with Tape Assessment/Plan Assessment/Plan (1) Lymphedema: CODE(S): I89.0 - Lymphedema, not elsewhere classified (2) Hypertension: CODE(S): I10 - Essential (primary) hypertension QUALIFIERS: Hypertension type: primary hypertension Qualified Code(s): I10 - Essential (primary) hypertension (3) Hyperlipidemia: CODE(S): E78.5 - Hyperlipidemia, unspecified QUALIFIERS: Hyperlipidemia type: mixed hyperlipidemia Qualified Code(s): E78.2 - Mixed hyperlipidemia (4) History of DVT (deep vein thrombosis): CODE(S): Z86.718 - Personal history of other venous thrombosis and embolism (5) Venous insufficiency (chronic) (peripheral): CODE(S): I87.2 - Venous insufficiency (chronic) (peripheral) (6) Venous ulcer of left lower extremity with varicose veins: CODE(S): I83.029 - Varicose veins of left lower extremity with ulcer of unspecified site (7) Edema: CODE(S): R60.9 - Edema, unspecified QUALIFIERS: Edema type: unspecified Qualified Code(s): R60.9 - Edema, unspecified (8) Venous ulcer of right lower extremity with varicose veins: CODE(S): I83.019 - Varicose veins of right lower extremity with ulcer of unspecified site; L97.919 - Non-pressure chronic ulcer of unspecified part of right lower leg with unspecified severity (9) Ulcer of left lower extremity with fat layer exposed: CODE(S): L97.922 - Non-pressure chronic ulcer of unspecified part of left lower leg with fat layer exposed PLAN: Plan Evaluation and debridement of left medial LE ulcer performed today in clinic as annotated above. At home wound-care instructions: Mauricio was referred to the ER and EMS came to transport him to ER. ED was called and report given to ED physician regarding failure of outpatient treatment. Due to his chronic lymphedema and being unable to don traditional compression stockings and the presence of venous ulcers on his LE b/l, it is medically necessary for him to have Circaid compression garments. These are being ordered. I suspect he is not very compliant with his lymphedema pumps and not getting adequate compression with tubigrips. Due to the delayed progress in wound healing of his venous ulcers, we discussed applying for advanced wound healing product for healing his ulcer. Due to the size of his ulcer, Theraskin application approval was requested from his insurance as it is medically necessary for salvaging his limb and healing his ulcer. He underwent 2 applications of Theraskin to this ulcer. Since application of Theraskin he has had much improvement in epithelialization of his ulcer even though the overall size is not significantly changed there is progress. Off-loading: The patient was instructed to avoid pressure and friction on the affected areas. Reposition every 2 hours at minimum. Avoid prolonged standing and/or dangling of legs. When seated, feet should be elevated at chest level. Frequent ambulation is encouraged. Encouraged lymphedema pump use. Diet: Patient encouraged to increase protein intake while taking caution to avoid high carbohydrate and/or sugar intake. Labs/cultures/imaging: Wound culture showed Pseudomonas, Escherichia hermannii, Raoultella planticola, Vancomycin Resist. E. faecalis, Alcaligenes faecalis ssp faeca, Staphylococcus cohnii urealyti and anaerobic bacteria on 06/15/24 and he completed on Levofloxacin and Augmentin. Wound culture taken today on right lateral ulcer which showed Raoultella planticola, Staph hemolyticus, staph epidermidis and morganella morganii but no anaeroobic bacteria, Levofloxacin and doxycyline were prescribed based on culture results. Labs ordered 10/19/2024. Vitamin D was low A1C 5.4% Wound culture showed Enterobacter cloacae complex, Escherichia hermannii, Staphylococcus sciuri, Corynebacterium striatum, Acinetobacter baumannii and he has been prescribed Levofloxacin for treatment. Follow-up: Return after discharge for wound care follow up. Return sooner or report to the emergency room should symptoms worsen, or new symptoms arise. Note: [employer] speech recognition pension adviser software was used to create portions of this document. Sound-alike and misspelled words, as well as other pension adviser errors may be contained in the documentation.
--- NOTE | 2024-12-10 09:01 | WC ---
PHOTO 12/06/24 SEEMA GARRIDO
--- NOTE | 2024-12-10 09:01 | WC ---
PHOTO 12/06/24 LEFT LATERAL LE
--- NOTE | 2024-12-10 09:02 | WC ---
PHOTO 12/06/24 RIGHT JOANNA MALHOTRA
--- NOTE | 2024-12-10 09:03 | WC ---
PHOTO 12/06/24 RIGHT LATERAL LOWER EXT.
== END 2024-12-07 23:59 | disposition home or self-care (01) ==
LOC: WC 09:30
PROVIDERS: PCP Family Medicine; Referring Provider Family Medicine; Visit Provider Family Medicine
DX: I83.019 Varicose veins of right lower extremity with ulcer of unspecified site (principal); L97.912 Non-pressure chronic ulcer of unspecified part of right lower leg with fat layer exposed; L97.922 Non-pressure chronic ulcer of unspecified part of left lower leg with fat layer exposed; I83.029 Varicose veins of left lower extremity with ulcer of unspecified site; I87.2 Venous insufficiency (chronic) (peripheral); Z86.718 Personal history of other venous thrombosis and embolism; I83.93 Asymptomatic varicose veins of bilateral lower extremities; E78.2 Mixed hyperlipidemia; I10 Essential (primary) hypertension; M79.605 Pain in left leg; I89.0 Lymphedema, not elsewhere classified
CPT/HCPCS: 11042; 11045; 87070; 87075; 87077; 87186; 87205; 93923; 93970; 99213; G0463

== ENCOUNTER 2024-12-07 10:49 | Inpatient (IN) | payer MEDICARE, OTHER, SELFPAY ==
[2024-12-07] VITALS (9 sets, daily range): BP systolic 106–139; BP diastolic 58–87; PULSE 74–90; RESP 16–18; TEMP 36.4–37.6; O2SAT 94–99; BMI 41.5; BMI 44.1
--- NOTE | 2024-12-07 11:25 | ED.VIS.LOWEX ---
HPI History of Present Illness Chief Complaint: Wound Informant: patient and other (Wound Center) Narrative Narrative: 69-year-old male presenting to the emergency department with acute on chronic leg ulcers. Patient has a history of chronic lymphedema. He is on Coumadin. He states that he has had leg ulcers in the past that have come up over the past several months. He has been at the wound clinic for these particularly on the right side. He states the left side appears stable but is not healing. He states that the right side is worsening. He recently underwent a Levaquin prescription has not been on antibiotics now for about 1 week. He denies any fevers. He went to the wound clinic today and advised him to come to emergency as he continues to worsen. He notes that he recently underwent arterial studies of the legs. Wound cultures have been taken from the legs. [facility] Medical History Severe protein-calorie malnutrition 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 Cellulitis and abscess of leg Laceration of forehead Fall Wears glasses Alcohol use Uses wheelchair Lupus Pulmonary embolism Stroke/cerebrovascular accident Seizures Non-smoker History of pain when walking History of edema History of stress test Hypertension Home Medications ?Medication ?Instructions ?Recorded ?Last Taken ?Type omega-3 fatty acids 500 mg capsule 1,000 mg PO TID supplement 08/27/15 07/01/22 History (Fish Oil) baclofen 10 mg tablet 10 mg PO Q8H Muscle Spasm 04/14/22 Unknown History niacin 50 mg tablet 25 mg PO DAILY Check with primary 04/14/22 Unknown History doctor phenytoin sodium extended 100 mg 200 mg PO DAILY Check with primary 04/14/22 07/07/22 06:15 History capsule (Dilantin Extended) doctor pregabalin 75 mg capsule (Lyrica) 75 mg PO TID Check with primary 04/14/22 Unknown History doctor turmeric root extract 500 mg 1,000 mg PO DAILY supplement 04/14/22 07/02/22 History capsule coenzyme Q10 100 mg capsule 100 mg PO DAILY Check with primary 07/02/22 Unknown History (CoQ-10) doctor ergocalciferol (vitamin D2) 1,250 1,250 mcg PO WE Check with primary 07/02/22 Unknown History mcg (50,000 unit) capsule (Vitamin doctor D2) phenytoin sodium extended 100 mg 100 mg PO QHS Check with primary 07/02/22 Unknown History capsule (Dilantin Extended) doctor furosemide 20 mg tablet (Lasix) 60 mg PO LUNCH 07/05/22 Unknown History furosemide 40 mg tablet (Lasix) 60 mg PO BREAKFAST 07/05/22 Unknown History aspirin 81 mg chewable tablet 81 mg PO BREAKFAST #0 tabs 12/08/22 Unknown Rx oxycodone 5 mg tablet 5 mg PO Q6H PRN PRN Pain Score 12/08/22 Unknown Rx 4-10 3 days #20 tabs clonidine HCl 0.1 mg tablet 0.1 mg PO Q12H 12/07/24 Unknown History tramadol 50 mg tablet 50 mg PO Q8H 12/07/24 Unknown History warfarin 3 mg tablet 3 mg PO MOTUWETHFR 12/07/24 Unknown History warfarin 5 mg tablet 4 mg PO SUSA 12/07/24 Unknown History Allergy/AdvReac Type Severity Reaction Status Date / Time duloxetine (From Cymbalta) Allergy Rash Verified 12/07/24 10:58 sulfamethoxazole (From Allergy Rash Verified 12/07/24 10:58 Bactrim) trimethoprim (From Bactrim) Allergy Rash Verified 12/07/24 10:58 ciprofloxacin (From Cipro) AdvReac PAIN IN Verified 12/07/24 10:58 FEET ciprofloxacin HCl (From AdvReac Rash Verified 12/07/24 10:58 Cipro) citalopram AdvReac SUICIDAL Verified 12/07/24 10:58 THOUGHTS gabapentin (From Neurontin) AdvReac EFFECTED Verified 12/07/24 10:58 VISION AND HEARING hydrochlorothiazide AdvReac DIZZINESS Verified 12/07/24 10:58 levetiracetam (From Keppra) AdvReac Other Verified 12/07/24 10:58 [id number] Reductase AdvReac Other Verified 12/07/24 10:58 Inhibitor tramadol AdvReac Other Verified 12/07/24 10:58 Family History Father Colon cancer Hypertension Gastric ulcer Mother Heart disease Brother Diabetes Surgical History Hx of colonoscopy History of embolic filter insertion Social History household members: none Smoking Status: Never smoker alcohol intake: never substance use type: does not use ROS ROS ED Constitutional Constitutional ED: Denies chills, fever(s) or weight loss Eyes Eyes: Denies change in vision or diplopia ENT ENT ED: Denies ear pain, rhinorrhea or sore throat Cardiovascular Cardiovascular: Denies chest pain, orthopnea, palpitations or racing heartbeat Respiratory/Chest Respiratory/Chest: Denies cough, dyspnea or orthopnea Gastrointestinal Gastrointestinal: Denies abdominal pain, diarrhea, nausea or vomiting Genitourinary Genitourinary ED: Denies dysuria, hematuria or urinary frequency Musculoskeletal Musculoskeletal: Denies arthralgias or myalgias Integumentary Reports other Details: See history of present illness ; Denies abscess or rash Neurologic Neurologic: Denies headache(s) or weakness Psychiatric Psychiatric: Denies anxiety, depression, suicidal ideation or suicidal thoughts Endocrine Endocrinology: Denies polydipsia, polyphagia or polyuria Allergic/Immunologic Allergic/Immunologic ED: Denies mouth swelling, tongue swelling or urticaria EXAM Physical Exam Const Vital Signs: 12/07/24 10:50 12/07/24 10:55 12/07/24 12:17 Temperature 97.9 F 97.9 F Temperature Source Oral Oral Pulse Rate 79 78 74 Respiratory Rate 18 18 16 Blood Pressure 125/73 H 125/73 H 126/74 H Blood Pressure Mean 90 90 91 Pulse Ox 97 97 99 Oxygen Delivery Method Room Air Room Air Room Air 12/07/24 12:18 Temperature 97.9 F Temperature Source Oral Pulse Rate 74 Respiratory Rate 16 Blood Pressure 126/74 H Blood Pressure Mean 91 Pulse Ox 98 Oxygen Delivery Method Room Air Positive well nourished and well developed General Appearance ED: well developed and NAD HEENT Reports normocephalic, head/scalp atraumatic and moist mucous membranes Eyes PERRL and EOMs intact bilaterally Neck no lymphadenopathy, supple and no JVD Resp normal respiratory effort and clear to auscultation bilaterally Cardio regular rate, regular rhythm and no murmurs GI normal to inspection, nondistended, normoactive bowel sounds and non-tender Palpation: soft Back/Spine no CVA tenderness and normal ROM Extremity Extremity Narrative: Patient has bilateral lower extremity edema. He has chronic appearing ulcer on the left medial leg. There are chronic wounds to the right leg both medial and laterally. There is surrounding erythema and increased warmth. No lymphangitic streaking is seen at the thighs. Neuro oriented x3 and CN's II-XII intact bilaterally Sensorium / Orientation: alert Motor Exam: strength 5/5 throughout Psych mental status grossly normal Mood & Affect: Negative for depressed or tearful Skin no rashes or lesions noted and no wounds MDM MDM MDM Narrative Medical decision making narrative: Differential diagnosis includes but not limited to cellulitis abscess failure of outpatient care peripheral vascular disease sepsis Basic blood work is obtained lactic acid 1.7 white count 10.3 creatinine 0.78. Patient received vancomycin and Zosyn. I spoke with the hospitalist who requested CT of the bilateral legs. These were obtained are consistent with cellulitis but no obvious abscess is seen. History & Record Review Discussion w/independent historian: Patient Additional record(s) reviewed:: Prior outpatient record and Prior labs Lab Data Attestation: I reviewed the patient's lab results. Labs: Laboratory Results - last 24 hr 12/07/24 12/07/24 10:59 11:40 WBC 10.3 RBC 4.17 L Hgb 12.7 L Hct 39.5 L MCV 94.7 H MCH 30.5 MCHC 32.2 RDW Std Deviation 50.4 H RDW Coeff of [place] 14.4 Plt Count 435 MPV 9.8 Immature Gran % (Auto) 1.300 H Neut % (Auto) 72.5 H Lymph % (Auto) 14.5 L [place] % (Auto) 10.7 H Eos % (Auto) 0.7 Baso % (Auto) 0.3 Absolute Neuts (auto) 7.5 Absolute Lymphs (auto) 1.49 Nucleated RBC % 0 PT 36.5 H INR 3.6 Sodium 138 Potassium 3.9 Chloride Direct 99 Carbon Dioxide 28.5 Anion Gap 11 BUN 19 Creatinine 0.78 Estim Creat Clear Calc 107.73 Est GFR (MDRD) Non-Af 98 BUN/Creatinine Ratio 24.1 H Glucose 77 Lactic Acid 1.7 Calcium 8.9 Total Bilirubin 0.36 Direct Bilirubin 0.15 AST 20 ALT 18 Alkaline Phosphatase 82 Total Protein 7.5 Albumin 3.5 Globulin 4.0 Radiography Diagnostic Testing: Clinical Impression(s) from Imaging Studies Lower Extremity CT 12/07/24 12:46 IMPRESSION: Findings suggestive of cellulitis. Small knee joint effusion. No evidence of abnormal fluid collection or abscess. One or more dose reduction techniques were used (e.g., Automated exposure control, adjustment of the mA and/or kV according to patient size, use of iterative reconstruction technique). Reading Location: [id number] Lower Extremity CT 12/07/24 12:47 IMPRESSION: Findings suggestive of cellulitis. No focal fluid collection or abscess is seen. No bony destruction is present. Muscular atrophy. One or more dose reduction techniques were used (e.g., Automated exposure control, adjustment of the mA and/or kV according to patient size, use of iterative reconstruction technique). Reading Location: [id number] Management Discussion w/another healthcare provider: Hospitalist (Dr Kruger) Discharge Plan Disposition Disposition: Acute Care Hospital [facility] Discharge Date/Time: 12/07/24 13:58
--- NOTE | 2024-12-07 11:38 | ED.RN ---
Right lower leg inner side
--- NOTE | 2024-12-07 11:39 | ED.RN ---
right lower leg inner side drainage present
--- NOTE | 2024-12-07 11:40 | ED.RN ---
right inner calf
--- NOTE | 2024-12-07 11:41 | ED.RN ---
left inner calf
--- NOTE | 2024-12-07 11:42 | ED.RN ---
left outer calf
--- NOTE | 2024-12-07 11:43 | ED.RN ---
left outer calf
[2024-12-07 12:07] LABS: Absolute Lymphocyte Count 1.49 X10^3/uL (0.83-4.51); Absolute Neutrophil Count 7.5 X10^3/uL (2.0-7.7); Basophil# 0.03 X10^3/uL; Basophil% 0.3 % (0-1); Eosinophil# 0.07 X10^3/uL; Eosinophils% 0.7 % (0-5); Hematocrit 39.5 % (40-54); Hemoglobin 12.7 g/dL (13.0-16.5); Lymphocyte # 1.49 X10^3/ul (0.83-4.51); Lymphocyte % 14.5 % (19-41); Mean Corp Hgb Conc 32.2 g/dL (32-36); Mean Corpuscular Hgb 30.5 pg (27.0-32.0); Mean Corpuscular Volume 94.7 fL (80-94); Mean Platelet Vol. 9.8 fl (6.2-12.0); Monocyte% 10.7 % (0-10); NRBC Flagged by Analyzer 0 % (0-5); Neutrophil # 7.47 X10^3/uL (2.7-7.7); Neutrophil % 72.5 % (47-70); Platelet Count 435 K/mm3 (150-450); RBC Distribution Width CV 14.4 % (11.6-14.6); RBC Distribution Width SD 50.4 fl (35.1-43.9); Red Blood Count 4.17 M/mm3 (4.6-6.2); White Blood Count 10.3 K/mm3 (4.4-11.0)
[2024-12-07] MEDS: Piperacil/Tazobactam 4.5 GM in 0.9% Normal Saline (100mL MB+) 100 ML IV (12:16)
[2024-12-07 12:17] LABS: International Normalized Ratio 3.6; Prothrombin Time (Protime)PT. 36.5 SECONDS (11.7-14.9)
[2024-12-07 12:30] LABS: Lactic Acid 1.7 mmol/L (0.0-2.0)
[2024-12-07 12:32] LABS: AST(SGOT) 20 U/L (<=37); Alanine Aminotransfer ALT/SGPT 18 U/L (<=46); Albumin, Serum 3.5 g/dL (3.4-4.8); Alkaline Phosphatase 82 U/L (40-129); Anion Gap 11 (5-15); BUN 19 mg/dL (4-19); BUN/Creat Ratio 24.1 RATIO (10-20); Bilirubin, Direct 0.15 mg/dL (0.00-0.30); Calcium 8.9 mg/dL (7.6-11.0); Carbon Dioxide 28.5 mmol/L (22.0-29.0); Chloride 99 mmol/L (96-108); Creatinine, Serum 0.78 mg/dL (0.70-1.20); EST Glomerular Filtration Rate 98 (>60); Estimated Creatinine Clearance 107.73 ml/min; Glucose 77 mg/dL (70-99); Potassium 3.9 mmol/L (3.3-5.1); Protein, Total 7.5 g/dL (5.9-8.4); Sodium Level 138 mmol/L (133-145); Total Bilirubin 0.36 mg/dL (0.00-1.30)
--- NOTE | 2024-12-07 12:41 | HP.PCM.HOS_ITS ---
HPI - General General Date of Admission: 12/07/24 Date of Service: 12/07/24 Chief Complaint: Bilateral lower extremity wounds HPI Narrative ESTEBAN URBINA, is a 69 M who presented to the emergency department [facility] on 12/07/2024 with a chief complaint of bilateral lower extremity wounds. Patient has known history of chronic ulcers that have been problematic for some time. He states about 3 years ago he had 1 and it healed however he wore Tubigrip and ended up with some ulceration has wounds ever since. He had been following up as an outpatient and been on antibiotics for about a week but symptoms got worse so he presented to the emergency department after going to the wound clinic today. He was advised to come here. He had recent venous studies that are patent bilaterally but valvular incompetence is noted arterial studies were also performed and were only mildly abnormal. Vital signs on presentation showed temperature of 97.9, heart rate 78, respiratory rate was 18, blood pressure was 125/73 and pulse ox was 97% on room air. CBC showed a mild anemia with a hemoglobin of 12.7 appears to be stable he did have a mild left shift with a 72.5% neutrophilia but is thick white count overall is stable. Chemistry panel was unremarkable. Liver functions were normal. We did obtain bilateral lower extremity CTs to make sure there are no fluid collections or abscesses and both were negative for fluid collection or abscesses and suggestive of cellulitis on both sides. He was started on broad-spectrum antibiotics after cultures obtained admitted to the floor. The case was discussed with Dr. Foss and he will evaluate the patient. [facility] Medical History Severe protein-calorie malnutrition 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 Cellulitis and abscess of leg Laceration of forehead Fall Wears glasses Alcohol use Uses wheelchair Lupus Pulmonary embolism Stroke/cerebrovascular accident Seizures Non-smoker History of pain when walking History of edema History of stress test Hypertension Home Medications ?Medication ?Instructions ?Recorded ?Last Taken ?Type omega-3 fatty acids 500 mg capsule 1,000 mg PO TID sup plement 08/27/15 12/07/24 History (Fish Oil) baclofen 10 mg tablet 10 mg PO Q8H Muscle Spasm Unknown History niacin 50 mg tablet 25 mg PO DAILY Check with pr imary 04/14/22 Unknown History doctor phenytoin sodium extended 100 mg 200 mg PO DAILY Check with primary 04/14/22 07/07/22 06:15 History capsule (Dilantin Extended) doctor pregabalin 75 mg capsule (Lyrica) 150 mg PO TID pain c ontrol 04/14/22 12/07/24 History turmeric root extract 500 mg 1,000 mg PO DAILY supplem ent 04/14/22 12/07/24 History capsule coenzyme Q10 100 mg capsule 100 mg PO DAILY Check with primary 07/02/22 12/07/24 History (CoQ-10) doctor ergocalciferol (vitamin D2) 1,250 1,250 mcg PO WE Chec k with primary 07/02/22 12/01/24 History mcg (50,000 unit) capsule (Vitamin doctor D2) phenytoin sodium extended 100 mg 100 mg PO QHS Check w ith primary 07/02/22 Unknown History capsule (Dilantin Extended) doctor furosemide 20 mg tablet (Lasix) 60 mg PO LUNCH 2 Unknown History furosemide 40 mg tablet (Lasix) 60 mg PO BREAKFAST rabia er pill 07/05/22 12/07/24 History aspirin 81 mg chewable tablet 81 mg PO BREAKFAST #0 ta bs 12/08/22 12/07/24 Rx oxycodone 5 mg tablet 5 mg PO Q6H PRN PRN Pain Sco re 12/08/22 Unknown Rx 4-10 3 days #20 tabs clonidine HCl 0.1 mg tablet 0.1 mg PO Q12H 12/07/24 Un known History tramadol 50 mg tablet 50 mg PO Q8H 12/07/24 Unknow n History warfarin 3 mg tablet 3 mg PO MOTUWETHFR 12/07/24 Unknown History warfarin 5 mg tablet 4 mg PO SUSA 12/07/24 Unknow n History Allergy/AdvReac Type Severity Reaction Status Date / Time duloxetine (From Cymbalta) Allergy Rash Verified 12/07/24 10:58 sulfamethoxazole (From Allergy Rash Verified 12/07/24 10:58 Bactrim) trimethoprim (From Bactrim) Allergy Rash Verified 12/07/24 10:58 ciprofloxacin (From Cipro) AdvReac PAIN IN Verified 12/07/24 10:58 FEET ciprofloxacin HCl (From AdvReac Rash Verified 12/07/24 10:58 Cipro) citalopram AdvReac SUICIDAL Verified 12/07/24 10:58 THOUGHTS gabapentin (From Neurontin) AdvReac EFFECTED Verified 12/07/24 10:58 VISION AND HEARING hydrochlorothiazide AdvReac DIZZINESS Verified 12/07/24 10:58 levetiracetam (From Keppra) AdvReac Other Verified 12/07/24 10:58 [id number] Reductase AdvReac Other Verified 12/07/24 10:58 Inhibitor tramadol AdvReac Other Verified 12/07/24 10:58 Family History Father Colon cancer Hypertension Gastric ulcer Mother Heart disease Brother Diabetes Surgical History Hx of colonoscopy History of embolic filter insertion Social History household members: none Smoking Status: Never smoker alcohol intake: never substance use type: does not use ROS Constitutional Constitutional: Denies anorexia, change in weight, chills, fatigue, fever(s), malaise, night sweats, weakness or other Eyes Eyes: Denies blurry vision, change in eye color, change in vision, discharge from eye(s), double vision, erythema, eye pain, loss of vision or other ENT HEENT: Denies abnormal hearing, dysphagia, ear pain, epistaxis, headache(s), hearing loss, nasal congestion, nasal discharge, post nasal drip, sinus pressure, sore throat or other Cardiovascular Cardiovascular: Reports edema; Denies chest pain, claudication, dyspnea on exertion, lightheadedness, orthopnea, palpitations, paroxysmal nocturnal dyspnea, rapid heart rate, syncope or other Respiratory/Chest Respiratory/Chest: Denies cough, dyspnea, excessive phlegm production, hemoptysis, productive cough, shortness of breath at rest, shortness of breath with exertion, wheezing or other Gastrointestinal Gastrointestinal: Denies abdominal pain, coffee ground emesis, constipation, diarrhea, dyspepsia, hematemesis, hematochezia, loose stools, melena, nausea, vomiting or other Genitourinary Genitourinary: Denies burning urination, difficulty urinating, dysuria, hematuria, nocturia, urinary frequency, urinary hesitancy, urinary incontinence, urinary urgency or other Musculoskeletal Musculoskeletal: Reports other Details: Lower extremity pain Integumentary Integumentary: Reports new lesions and wounds; Denies dry skin, jaundice, lesions, pruritus, rash or other Neurologic Neurologic: Denies abnormal gait, abnormal speech, confusion, disequilibrium, dizziness, focal weakness, headache(s), numbness, paresthesias, seizure-like activity, seizures, syncope, tingling, tremor(s) or other Psychiatric Psychiatric: Denies anxiety, depression, homicidal ideation, suicidal ideation or other Endocrine Endocrinology: Denies change in body appearance, cold intolerance, excessive sweating, heat intolerance, polydipsia, polyuria or other Hematologic/Lymphatic Hematologic/Lymphatic: Denies anemia, easy bleeding, easy bruising, lymphadenopathy or other Allergic/Immunologic Allergic/Immunologic: Denies rhinitis, hives, eczemia, asthma or other Vital Signs Vital Signs Vital Signs: 12/07/24 10:50 12/07/24 10:55 12/07/24 12:17 Temperature 97.9 F 97.9 F Temperature Source Oral Oral Pulse Rate 79 78 74 Respiratory Rate 18 18 16 Blood Pressure 125/73 H 125/73 H 126/74 H Blood Pressure Mean 90 90 91 Pulse Ox 97 97 99 Oxygen Delivery Method Room Air Room Air Room Air 12/07/24 12:18 Temperature 97.9 F Temperature Source Oral Pulse Rate 74 Respiratory Rate 16 Blood Pressure 126/74 H Blood Pressure Mean 91 Pulse Ox 98 Oxygen Delivery Method Room Air Weight Weight: 116.8 kg Body Mass Index (BMI) 41.5 Physical Exam Const alert, oriented x3, no apparent distress, average body habitus and well nourished; Negative for healthy appearing Constitutional Narrative: Morbidly obese, white male, sitting up in bed, appears comfortable, watching TV, not toxic appearing General Appearance: cooperative HEENT normocephalic, head/scalp atraumatic, hearing grossly normal bilaterally and moist oral mucous membranes HEENT Narrative: Mallampati 3-4, dentition is fair for age, no thrush Eyes EOMs intact bilaterally and conjunctivae normal Eyes Narrative: No scleral icterus Neck supple Resp normal respiratory effort, no retractions, no use of accessory muscles and clear to auscultation bilaterally Auscultation: Negative for rales, rhonchi or wheezes Cardio regular rate, regular rhythm, S1 normal heart sound, S2 normal heart sound, no murmurs, no rub, no gallops and no clicks GI normal to inspection, nondistended, normoactive bowel sounds, soft to palpation and non-tender Extremity Extremity Narrative: Bilateral lower extremity edema, onychomycosis bilateral nails, cap refill is 2+, no cyanosis or clubbing Skin Skin Narrative: Wounds bilateral lower extremities with new dressings in place will have to reassess tomorrow Neuro oriented x3, moves all extremities and no focal motor deficits Speech: speech normal Psych affect normal Psych Narrative: Very pleasant, interacts appropriately Results Lab / Micro Data 12/08/24 05:03 12/08/24 05:03 Labs: Laboratory Results - last 24 hr 12/07/24 10:59: WBC 10.3, RBC 4.17 L, Hgb 12.7 L, Hct 39.5 L, MCV 94.7 H, MCH 30.5, MCHC 32.2, RDW Std Deviation 50.4 H, RDW Coeff of [place] 14.4, Plt Count 435, MPV 9.8, Immature Gran % (Auto) 1.300 H, Neut % (Auto) 72.5 H, Lymph % (Auto) 14.5 L, [place] % (Auto) 10.7 H, Eos % (Auto) 0.7, Baso % (Auto) 0.3, Absolute Neuts (auto) 7.5, Absolute Lymphs (auto) 1.49, Nucleated RBC % 0, PT 36.5 H, INR 3.6, Sodium 138, Potassium 3.9, Chloride Direct 99, Carbon Dioxide 28.5, Anion Gap 11, BUN 19, Creatinine 0.78, Estim Creat Clear Calc 107.73, Est GFR (MDRD) Non-Af 98, BUN/Creatinine Ratio 24.1 H, Glucose 77, Calcium 8.9, Total Bilirubin 0.36, Direct Bilirubin 0.15, AST 20, ALT 18, Alkaline Phosphatase 82, Total Protein 7.5, Albumin 3.5, Globulin 4.0 12/07/24 11:40: Lactic Acid 1.7 Assessment & Plan Assessment/Plan (1) Cellulitis: (2) Venous ulcer of right lower extremity with varicose veins: PLAN: Plan Acute on chronic bilateral lower extremity wounds/cellulitis -Fairly extensive -CT shows no abscesses to does not appear that there is any need for debridement at this time -Will continue Coumadin -Broad-spectrum antibiotics with vancomycin and Zosyn -Cultures pending -Patient had recent ABIs and venous ultrasounds both of which were relatively unremarkable other than venous valvular incompetence -Will check lower extremity CTA with runoff -Wound care nurse following -Dr. Foss following-discussed History of pulmonary embolus -INR is therapeutic at 3.4 -Discussed with plastic surgery and no need for debridement at this time -Will continue home Coumadin and monitor INR daily Chronic lower extremity edema -Continue home diuresis with Lasix 60 mg twice daily Vitamin D deficiency -Continue home ergocalciferol Seizure history -Continue Dilantin -No signs of toxicity Essential hypertension/hyperlipidemia -Continue home clonidine -Continue home niacin -Patient with history of statin intolerance -Monitor blood pressures and if consistently greater than 140 systolic we will start as needed hydralazine Chronic pain -Hold home Ultram -Oxycodone as needed -Hold home turmeric root -Continue home Lyrica Morbid obesity -BMI is 44.2 -Recommend weight loss -Complicates treatment, prognosis, outcomes DVT prophylaxis -Patient is therapeutic on Coumadin -Continue home Coumadin -Check daily INR CODE STATUS -DNR CCA with no intubation as discussed at admission and verified Charges/Coding Visit Charges Inpatient E&M: 99963 Init Hosp L2
--- NOTE | 2024-12-07 12:46 | CT_ITS ---
PROCEDURE: EXTREMITY LOWER WITHOUT CONTRA REASON FOR EXAM: Lower extremity swelling and ulcerations. TECHNIQUE: Multiple axial tomographic images were obtained without intravenous contrast administration. Coronal and sagittal reconstruction was obtained as well. COMPARISON: None. FINDINGS: Bones: No evidence of fracture. Joints: Degenerative changes of the knee joint. Soft Tissues: Small knee joint effusion. Skin thickening with increased subcutaneous markings more pronounced in the lower aspect of the leg. There is evidence of muscle atrophy. No focal fluid collection or abscess is seen. Vascular calcification. CT/Extremity Lower without Contra IMPRESSION: Findings suggestive of cellulitis. Small knee joint effusion. No evidence of abnormal fluid collection or abscess. One or more dose reduction techniques were used (e.g., Automated exposure contr ol, adjustment of the mA and/or kV according to patient size, use of iterative reconstruction technique). Reading Location: [id number]
--- NOTE | 2024-12-07 12:47 | CT_ITS ---
PROCEDURE: EXTREMITY LOWER WITHOUT CONTRA REASON FOR EXAM: Left lower extremity infection. Possible abscess. TECHNIQUE: Multiple axial tomographic images of the left lower extremity were obtained without intravenous contrast administration. Coronal and sagittal reconstruction was obtained as well. COMPARISON: None. FINDINGS: Bones: No evidence of fracture. Joints: Joint space(s) preserved. No subluxation or dislocation. Soft Tissues: There is evidence of diffuse muscular atrophy. Skin thickening more pronounced along the medial aspect. Increased subcutaneous markings in the lower leg suggestive of cellulitis. No focal abscess or fluid collection is seen. Vascular calcification. CT/Extremity Lower without Contra IMPRESSION: Findings suggestive of cellulitis. No focal fluid collection or abscess is see n. No bony destruction is present. Muscular atrophy. One or more dose reduction techniques were used (e.g., Automated exposure contr ol, adjustment of the mA and/or kV according to patient size, use of iterative reconstruction technique). Reading Location: [id number]
[2024-12-07] MEDS: Vancomycin HCl 2,000 MG in 0.9% Normal Saline (500mL Bag) 500 ML 250 MG IV (12:53)
--- NOTE | 2024-12-07 13:21 | EX.PCM.CON.S ---
Assessment & Plan Assessment/Plan (1) Venous ulcer of right lower extremity with varicose veins: (2) Venous ulcer of left lower extremity with varicose veins: (3) Edema: QUALIFIERS: Edema type: unspecified Qualified Code(s): R60.9 - Edema, unspecified (4) Venous insufficiency: (5) Cellulitis: PLAN: Plan Discussed plan with primary team, Dr. Kruger, as well as Dr. Garcia, his primary physician/wound care physician. Recommending Dakin's wet-to-dry dressings twice daily to the lower extremities (discussed with nursing staff), as well as pressure offloading with pressure offloading bed and elevation of the legs with pressure offloading using pillows (no pressure on calf or Achilles/posterior leg). Agree with plan for diuresis for lower extremity swelling. Plan for gentle compression with Marcio wrap's as well. Recommending vascular surgery be involved. Once we rule out the need for a vascular intervention, we can likely increase compression. He does have a reassuring pulse exam and decent blood flow and his ABIs, albeit calcified. Plastic surgery will continue to follow. Agree with broad-spectrum antibiotics for cellulitis. Okay to continue Coumadin from plastic surgery standpoint HPI Consult Data Date of Consult: 12/07/24 HPI Narrative HPI Narrative: ESTEBAN URBINA is a delightful 69-year-old male with a complicated past medical history including a stroke in 2008 with residual left-sided lower extremity weakness, with a hospital course in 2008 subsequently that was complicated by DVT PE with filter placement and need for chronic anticoagulation (currently on Coumadin) who was admitted from the wound care center today for worsening lower extremity wounds and lower extremity swelling in the setting of chronic venous stasis ulcers that have been managed at the wound care center for approximately 2 years. Last week he got lower extremity duplex ultrasonography to assess the veins and this demonstrated patent deep veins of the lower extremities with chronic venous changes including valvular incompetence and only partial compressibility. ABIs were done at the same time and demonstrated triphasic waveforms on the left and the right ankles, with a right ankle-brachial index of 1.44 (calcified) and a left ankle-brachial index 1.12. He was seen and examined in the wound care center today and there was concern for worsening of lower extremity swelling and enlargement of the wounds with more necrotic debris. There is some concern about poor compression while at home and also concern from his primary care doctor about need for diuresis as his lower extremities are significantly more swollen. Today on the floor he has stable vital signs and a white blood cell count of 10. His INR is 3.6. He is not a smoker, not a diabetic. CT scan of the bilateral lower extremity today did not demonstrate any fluid collections and was more suggestive of surrounding wound cellulitis. [facility] Medical History Severe protein-calorie malnutrition 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 Cellulitis and abscess of leg Laceration of forehead Fall Wears glasses Alcohol use Uses wheelchair Lupus Pulmonary embolism Stroke/cerebrovascular accident Seizures Non-smoker History of pain when walking History of edema History of stress test Hypertension Home Medications ?Medication ?Instructions ?Recorded ?Last Taken ?Type omega-3 fatty acids 500 mg capsule 1,000 mg PO TID supplement 08/27/15 12/07/24 History (Fish Oil) baclofen 10 mg tablet 10 mg PO Q8H Muscle Spasm 04/14/22 Unknown History niacin 50 mg tablet 25 mg PO DAILY Check with primary 04/14/22 Unknown History doctor phenytoin sodium extended 100 mg 200 mg PO DAILY Check with primary 04/14/22 07/07/22 06:15 History capsule (Dilantin Extended) doctor pregabalin 75 mg capsule (Lyrica) 150 mg PO TID pain control 04/14/22 12/07/24 History turmeric root extract 500 mg 1,000 mg PO DAILY supplement 04/14/22 12/07/24 History capsule coenzyme Q10 100 mg capsule 100 mg PO DAILY Check with primary 07/02/22 12/07/24 History (CoQ-10) doctor ergocalciferol (vitamin D2) 1,250 1,250 mcg PO WE Check with primary 07/02/22 12/01/24 History mcg (50,000 unit) capsule (Vitamin doctor D2) phenytoin sodium extended 100 mg 100 mg PO QHS Check with primary 07/02/22 Unknown History capsule (Dilantin Extended) doctor furosemide 20 mg tablet (Lasix) 60 mg PO LUNCH 07/05/22 Unknown History furosemide 40 mg tablet (Lasix) 60 mg PO BREAKFAST water pill 07/05/22 12/07/24 History aspirin 81 mg chewable tablet 81 mg PO BREAKFAST #0 tabs 12/08/22 12/07/24 Rx oxycodone 5 mg tablet 5 mg PO Q6H PRN PRN Pain Score 12/08/22 Unknown Rx 4-10 3 days #20 tabs clonidine HCl 0.1 mg tablet 0.1 mg PO Q12H 12/07/24 Unknown History tramadol 50 mg tablet 50 mg PO Q8H 12/07/24 Unknown History warfarin 3 mg tablet 3 mg PO MOTUWETHFR 12/07/24 Unknown History warfarin 5 mg tablet 4 mg PO SUSA 12/07/24 Unknown History Allergy/AdvReac Type Severity Reaction Status Date / Time duloxetine (From Cymbalta) Allergy Rash Verified 12/07/24 10:58 sulfamethoxazole (From Allergy Rash Verified 12/07/24 10:58 Bactrim) trimethoprim (From Bactrim) Allergy Rash Verified 12/07/24 10:58 ciprofloxacin (From Cipro) AdvReac PAIN IN Verified 12/07/24 10:58 FEET ciprofloxacin HCl (From AdvReac Rash Verified 12/07/24 10:58 Cipro) citalopram AdvReac SUICIDAL Verified 12/07/24 10:58 THOUGHTS gabapentin (From Neurontin) AdvReac EFFECTED Verified 12/07/24 10:58 VISION AND HEARING hydrochlorothiazide AdvReac DIZZINESS Verified 12/07/24 10:58 levetiracetam (From Keppra) AdvReac Other Verified 12/07/24 10:58 Glikgek-[id number]-WcT Reductase AdvReac Other Verified 12/07/24 10:58 Inhibitor tramadol AdvReac Other Verified 12/07/24 10:58 Family History Father Colon cancer Hypertension Gastric ulcer Mother Heart disease Brother Diabetes Surgical History Hx of colonoscopy History of embolic filter insertion Social History household members: none Smoking Status: Never smoker alcohol intake: never substance use type: does not use Physical Exam Const alert, oriented x3 and no apparent distress General Appearance: cooperative and comfortable HEENT normocephalic and head/scalp atraumatic Lymph Lymphatic: lymphedema moderate Resp normal respiratory effort Effort and Inspection: able to speak in complete sentences Cardio regular rate and regular rhythm Extremity Extremity Narrative: edema significantly increased today in b/l legs, ulcers painful and larger General Extremity: edema bilateral lower extremity Details: severe Skin General Skin Exam: venous stasis and dermatitis Wounds: wounds noted Wound Narrative: Bilateral venous stasis ulcers, worse on the posterior. Appear full-thickness. + odor, necrotic debris at the base of the wounds bilaterally, with some proud granulation tissue bilaterally. Surrounding cellulitis around the wounds and severe pitting edema up to the knees Vascular: His feet are warm with 2+ dorsalis pedis pulses bilaterally Sensation: Intact to light touch bilaterally. Motor: 5 out of 5 dorsiflexion and plantarflexion. Psych mental status grossly normal, thought process normal, cooperative and affect normal Lab / Micro Data 12/07/24 10:59 12/07/24 10:59 Labs: Laboratory Results - last 24 hr 12/07/24 10:59: WBC 10.3, RBC 4.17 L, Hgb 12.7 L, Hct 39.5 L, MCV 94.7 H, MCH 30.5, MCHC 32.2, RDW Std Deviation 50.4 H, RDW Coeff of [place] 14.4, Plt Count 435, MPV 9.8, Immature Gran % (Auto) 1.300 H, Neut % (Auto) 72.5 H, Lymph % (Auto) 14.5 L, [place] % (Auto) 10.7 H, Eos % (Auto) 0.7, Baso % (Auto) 0.3, Absolute Neuts (auto) 7.5, Absolute Lymphs (auto) 1.49, Nucleated RBC % 0, PT 36.5 H, INR 3.6, Sodium 138, Potassium 3.9, Chloride Direct 99, Carbon Dioxide 28.5, Anion Gap 11, BUN 19, Creatinine 0.78, Estim Creat Clear Calc 107.73, Est GFR (MDRD) Non-Af 98, BUN/Creatinine Ratio 24.1 H, Glucose 77, Calcium 8.9, Total Bilirubin 0.36, Direct Bilirubin 0.15, AST 20, ALT 18, Alkaline Phosphatase 82, Total Protein 7.5, Albumin 3.5, Globulin 4.0 12/07/24 11:40: Lactic Acid 1.7 Imaging I independently reviewed the CT scans of the lower extremities and did not see any fluid collections Charges/Coding Multi Select Codes Visit Charges Office Visit/Consults: [id number] IP Consult L5
[2024-12-07] MEDS: traMADol 50 MG Tablet PO (13:56)
--- NOTE | 2024-12-07 14:43 | PHA.PHARE_ITS ---
Consult Antibiotic Management Pharmacy has been consulted to manage selected antibiotic: Vancomycin Type of Intervention Type of Consult: New start Suspected Infection Suspected Infection: Skin/Soft tissue Prior Doses of Antibiotics Prior Doses of Antibiotics Received/Current Regimen: Vancomycin 2000 mg IV x 1 given 12/07/24 @ 1253, pt is also on piperacillin/tazob actam 3.375 grams Q8H Labs Labs: Sodium 138 mmol/L (133-145) 12/07/24 10:59 Potassium 3.9 mmol/L (3.3-5.1) 12/07/24 10:59 Carbon Dioxide 28.5 mmol/L (22.0-29.0) 12/07/24 10:59 Anion Gap 11 (5-15) 12/07/24 10:59 BUN 19 mg/dL (4-19) 12/07/24 10:59 Creatinine 0.78 mg/dL (0.70-1.20) 12/07/24 10:59 Est GFR (MDRD) Non-Af 98 (>60) 12/07/24 10:59 BUN/Creatinine Ratio 24.1 RATIO (10-20) H 12/07/24 10:59 Glucose 77 mg/dL (70-99) 12/07/24 10:59 Dosing Weight Weight used for dosin kg Estimated Creatinine Clearance Estimated Creatinine Clearance: ~ 108 Goal Trough Goal Trough: 15-20 mcg/mL Pharmacy Plan for Drug Dosing Pharmacy Plan for Drug Dosing: Vancomycin 2000 mg IV x 1 followed by 1500 mg Q8H Pharmacy Service will continue to monitor and adjust dosing as required. Follow-Up Labs Follow-Up Labs: Trough: Vancomycin Date/Time Labs Ordered Labs to be done on [date and time ordered]: 12/08/24 @ 1233
[2024-12-07] MEDS: Acetaminophen 500 MG Tablet 1000 MG PO ×2 (15:26→21:39)
[2024-12-07] MEDS: Baclofen 10 MG Tablet PO ×2 (15:26→21:39)
[2024-12-07] MEDS: Pregabalin 75 MG Capsule 150 MG PO ×2 (16:56→21:40)
[2024-12-07] MEDS: Vancomycin HCl 1,500 MG in 0.9% Normal Saline (500mL Bag) 500 ML 250 MG IV (20:00)
[2024-12-07] MEDS: oxyCODONE 5 MG Tablet PO (20:09)
[2024-12-07] MEDS: cloNIDine HCl 0.1 MG Tablet PO (21:39)
[2024-12-07] MEDS: 0.9% Normal Saline (100mL Bag) 100 ML 15 ML IV (21:45)
[2024-12-07] MEDS: Piperacil/Tazobactam 3.375 GM in 0.9% Normal Saline (50mL MB+) 50 ML IV (21:45)
[2024-12-07] MEDS: Phenytoin Na 100 MG Capsule PO (21:53)
[2024-12-07] MEDS: 0.9% Saline Lock 10 ML Syringe IV (22:59)
[2024-12-07] MEDS: Morphine 2 MG/ML Syringe IV (22:59)
--- NOTE | 2024-12-07 23:30 | NURSING ---
Pt refused for bilateral leg dressings to be changed
[2024-12-08] MEDS: MELATONIN 3 MG TABLET PO ×2 (00:52→22:43)
[2024-12-08] MEDS: oxyCODONE 5 MG Tablet PO ×5 (00:53→22:44)
[2024-12-08 04:06] VITALS: BMI 41.3
[2024-12-08] MEDS: Pregabalin 75 MG Capsule 150 MG PO ×3 (05:10→22:43)
[2024-12-08] MEDS: Vancomycin HCl 1,500 MG in 0.9% Normal Saline (500mL Bag) 500 ML 250 MG IV ×3 (05:10→22:42)
[2024-12-08] MEDS: Acetaminophen 500 MG Tablet 1000 MG PO ×3 (05:12→22:28)
[2024-12-08] MEDS: Baclofen 10 MG Tablet PO ×3 (05:13→22:31)
[2024-12-08] MEDS: Piperacil/Tazobactam 3.375 GM in 0.9% Normal Saline (50mL MB+) 50 ML IV ×3 (05:17→22:32)
[2024-12-08 05:18] VITALS: BP 124/66; PULSE 68; RESP 17; TEMP 36.6; O2SAT 96
[2024-12-08 05:37] LABS: Absolute Lymphocyte Count 0.94 X10^3/uL (0.83-4.51); Absolute Neutrophil Count 8.7 X10^3/uL (2.0-7.7); Basophil# 0.05 X10^3/uL; Basophil% 0.5 % (0-1); Eosinophil# 0.12 X10^3/uL; Eosinophils% 1.1 % (0-5); Hematocrit 33.1 % (40-54); Lymphocyte # 0.94 X10^3/ul (0.83-4.51); Lymphocyte % 8.6 % (19-41); Mean Corp Hgb Conc 33.2 g/dL (32-36); Mean Corpuscular Hgb 31.1 pg (27.0-32.0); Mean Corpuscular Volume 93.5 fL (80-94); Mean Platelet Vol. 9.4 fl (6.2-12.0); Monocyte% 9.2 % (0-10); NRBC Flagged by Analyzer 0 % (0-5); Neutrophil % 79.6 % (47-70); Platelet Count 408 K/mm3 (150-450); RBC Distribution Width CV 14.6 % (11.6-14.6); RBC Distribution Width SD 49.8 fl (35.1-43.9); Red Blood Count 3.54 M/mm3 (4.6-6.2); White Blood Count 10.9 K/mm3 (4.4-11.0)
[2024-12-08 05:49] LABS: International Normalized Ratio 3.4; Prothrombin Time (Protime)PT. 34.9 SECONDS (11.7-14.9)
[2024-12-08 05:59] LABS: ALB/GLOB Ratio 0.9 RATIO (0.9-2.4); AST(SGOT) 13 U/L (<=37); Alanine Aminotransfer ALT/SGPT 13 U/L (<=46); Alkaline Phosphatase 66 U/L (40-129); Anion Gap 10 (5-15); BUN 12 mg/dL (4-19); BUN/Creat Ratio 15.5 RATIO (10-20); Calcium 8.2 mg/dL (7.6-11.0); Carbon Dioxide 25.2 mmol/L (22.0-29.0); Chloride 104 mmol/L (96-108); Creatinine, Serum 0.75 mg/dL (0.70-1.20); EST Glomerular Filtration Rate 99 (>60); Estimated Creatinine Clearance 104.23 ml/min; Globulin 3.3 g/dL (2.2-4.2); Glucose 131 mg/dL (70-99); Magnesium 2.2 mg/dL (1.5-2.2); Phosphorus 2.9 mg/dL (2.7-4.5); Potassium 3.7 mmol/L (3.3-5.1); Protein, Total 6.2 g/dL (5.9-8.4); Sodium Level 139 mmol/L (133-145); Total Bilirubin 0.39 mg/dL (0.00-1.30)
--- NOTE | 2024-12-08 07:25 | CT_ITS ---
PROCEDURE: CTA ABD W/RUNOFF W/WO CONTRAST REASON FOR EXAM: Lower extremity wounds TECHNIQUE: CTA imaging of the abdomen, pelvis, and lower extremities with intravenous contrast. 3D reconstructions. COMPARISON: CT of the lower extremity dated 12/07/[address] abdomen and pelvis dated 11/30/2022 FINDINGS: Aorta: Abdominal aorta is normal in size. No significant atherosclerotic plaque. No evidence of aneurysm or dissection. Celiac: Normal. SMA: Normal. MISHA : Normal. Right Renal: Normal. Left Renal: Normal. RIGHT Iliac Arteries: Common Iliac: Normal. External Iliac: Normal. Internal Iliac: Normal. LEFT Iliac Arteries: Common Iliac: Normal. External Iliac: Mild mixed calcified and soft plaque identified. Internal Iliac: Normal. RIGHT Lower Extremity: Common Femoral: Mild mixed calcified and soft plaque identified. Superficial Femoral: Mild mixed calcified and soft plaque identified. Deep Femoral: Normal. Popliteal: Normal. Anterior Tibial: Calcification with multi segmental stenoses proximally. Tibioperoneal Trunk: Normal. Posterior Tibial: Calcifications with multi segmental stenoses Peroneal: Normal. Dorsalis Pedis: Opacified LEFT Lower Extremity: Common Femoral: Normal. Superficial Femoral: Moderate mixed calcified and soft plaque identified. No high grade stenosis. Deep Femoral: Normal. Popliteal: Normal. Anterior Tibial: Calcification with multi segmental stenoses. Tibioperoneal Trunk: Normal. Posterior Tibial: Calcification with multi segmental stenoses. Peroneal: Calcifications with multi segmental stenoses. Dorsalis Pedis: Opacified Other Stents/Grafts: None. Other Findings: Gallbladder is distended with gallstones. Infrarenal IVC filter. Venous collaterals throughout the pelvis and lateral abdominal wall, [id number]-left suggestive of ileal caval occlusion. Prostate measures 5.2 cm in transverse dimensio. Mild right suprapatellar joint effusion. Bilateral lower extremity edema bone windows are unremarkable. CT/CTA Abd w/Runoff W/WO Contrast IMPRESSION: 1. 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 With lower extremity cellulitis the lower extremity wounds are most likely felt to be a sequela from venous hypertension. 2. Multisegmental moderate arterial in the bilateral tibial vessels with runof f to the feet. 3. Distended gallbladder with cholelithiasis 4. Prostatomegaly 5. Mild right suprapatellar joint effusion One or more dose reduction techniques were used (e.g., Automated exposure contr ol, adjustment of the mA and/or kV according to patient size, use of iterative reconstruction technique). Reading Location: [facility]
--- NOTE | 2024-12-08 08:43 | PCM.PN.SRG ---
Subjective Subjective Patient comfortable. Reports adequate pain control. Objective Data Objective Data Vital Signs: Vital Signs Temp Pulse Resp BP Pulse Ox O2 Del Method 97.9 F 68 17 124/66 H 96 Room Air 12/08/24 05:18 12/08/24 05:18 12/08/24 05:18 12/08/24 05:18 12/08/24 05:18 12/08/24 05:18 Oxygen Delivery Method Room Air Weight: 257 lb 7.999 oz Body Mass Index (BMI) 41.3 Intake & Output: Intake and Output for Last 24 Hours 12/06/24 12/07/24 12/08/24 23:59 23:59 23:59 Intake Total 1690 / 2090 1380 / 1380 Output Total 480 / 905 625 / 625 Balance 1210 / 1185 755 / 755 Lab / Micro Data 12/08/24 05:03 12/08/24 05:03 Labs: Laboratory Results - last 24 hr 12/07/24 10:59: WBC 10.3, RBC 4.17 L, Hgb 12.7 L, Hct 39.5 L, MCV 94.7 H, MCH 30.5, MCHC 32.2, RDW Std Deviation 50.4 H, RDW Coeff of [place] 14.4, Plt Count 435, MPV 9.8, Immature Gran % (Auto) 1.300 H, Neut % (Auto) 72.5 H, Lymph % (Auto) 14.5 L, [place] % (Auto) 10.7 H, Eos % (Auto) 0.7, Baso % (Auto) 0.3, Absolute Neuts (auto) 7.5, Absolute Lymphs (auto) 1.49, Nucleated RBC % 0, PT 36.5 H, INR 3.6, Sodium 138, Potassium 3.9, Chloride Direct 99, Carbon Dioxide 28.5, Anion Gap 11, BUN 19, Creatinine 0.78, Estim Creat Clear Calc 107.73, Est GFR (MDRD) Non-Af 98, BUN/Creatinine Ratio 24.1 H, Glucose 77, Calcium 8.9, Total Bilirubin 0.36, Direct Bilirubin 0.15, AST 20, ALT 18, Alkaline Phosphatase 82, Total Protein 7.5, Albumin 3.5, Globulin 4.0 12/07/24 11:40: Lactic Acid 1.7 12/08/24 05:03: WBC 10.9, RBC 3.54 L, Hgb 11.0 L, Hct 33.1 L, MCV 93.5, MCH 31.1, MCHC 33.2, RDW Std Deviation 49.8 H, RDW Coeff of [place] 14.6, Plt Count 408, MPV 9.4, Immature Gran % (Auto) 1.000 H, Neut % (Auto) 79.6 H, Lymph % (Auto) 8.6 L, [place] % (Auto) 9.2, Eos % (Auto) 1.1, Baso % (Auto) 0.5, Absolute Neuts (auto) 8.7 H, Absolute Lymphs (auto) 0.94, Nucleated RBC % 0, PT 34.9 H, INR 3.4, Sodium 139, Potassium 3.7, Chloride Direct 104, Carbon Dioxide 25.2, Anion Gap 10, BUN 12, Creatinine 0.75, Estim Creat Clear Calc 104.23, Est GFR (MDRD) Non-Af 99, BUN/Creatinine Ratio 15.5, Glucose 131 H, Calcium 8.2, Phosphorus 2.9, Magnesium 2.2, Total Bilirubin 0.39, AST 13, ALT 13, Alkaline Phosphatase 66, Total Protein 6.2, Albumin 3.0 L, Globulin 3.3, Albumin/Globulin Ratio 0.9 Micro: Microbiology 12/07/24 14:30 Wound - Leg, Right Gram Stain - Final 12/07/24 14:30 Wound - Leg, Right Skin and Soft Tissue MRSA/MSSA (PCR - Final Radiography Diagnostic Testing: Radiology Impression Lower Extremity CT 12/07/24 12:46 IMPRESSION: Findings suggestive of cellulitis. Small knee joint effusion. No evidence of abnormal fluid collection or abscess. One or more dose reduction techniques were used (e.g., Automated exposure control, adjustment of the mA and/or kV according to patient size, use of iterative reconstruction technique). Reading Location: [id number] Lower Extremity CT 12/07/24 12:47 IMPRESSION: Findings suggestive of cellulitis. No focal fluid collection or abscess is seen. No bony destruction is present. Muscular atrophy. One or more dose reduction techniques were used (e.g., Automated exposure control, adjustment of the mA and/or kV according to patient size, use of iterative reconstruction technique). Reading Location: [id number] Physical Exam Narrative Lower extremities are pressure offloaded with padding and pillows, no pressure on Achilles or the heals and wounds. Const alert, oriented x3 and no apparent distress General Appearance: cooperative and comfortable HEENT normocephalic and head/scalp atraumatic Lymph Lymphatic: lymphedema moderate Resp normal respiratory effort Effort and Inspection: able to speak in complete sentences Cardio regular rate and regular rhythm Extremity Extremity Narrative: edemaabout the same General Extremity: edema bilateral lower extremity Details: severe Skin General Skin Exam: venous stasis and dermatitis Wounds: wounds noted Wound Narrative: Bilateral venous stasis ulcers, worse on the posterior. Appear full-thickness. + odor, necrotic debris at the base of the wounds bilaterally, with some proud granulation tissue bilaterally. Surrounding cellulitis around the wounds and severe pitting edema up to the knees No ascending infection/crepitus on either side Vascular: His feet are warm with 2+ dorsalis pedis pulses bilaterally Sensation: Intact to light touch bilaterally. Motor: wiggles toes Psych mental status grossly normal, thought process normal, cooperative and affect normal Assessment & Plan Assessment/Plan (1) Venous ulcer of right lower extremity with varicose veins: (2) Venous ulcer of left lower extremity with varicose veins: (3) Edema: QUALIFIERS: Edema type: unspecified Qualified Code(s): R60.9 - Edema, unspecified (4) Venous insufficiency: (5) Cellulitis: PLAN: Plan Recommending Dakin's wet-to-dry dressings twice daily to the lower extremities (discussed with nursing staff), as well as pressure offloading with pressure offloading bed and elevation of the legs with pressure offloading using pillows (no pressure on calf or Achilles/posterior leg). Agree with plan for diuresis for lower extremity swelling. Plan for gentle compression with Marcio wrap's as well. Agree with plan for CT aorta/runoff Recommending vascular surgery be involved. Once we rule out the need for a vascular intervention, we can likely increase compression. He does have a reassuring pulse exam and decent blood flow and his ABIs, albeit calcified. Plastic surgery will continue to follow. Agree with broad-spectrum antibiotics for cellulitis. Okay to continue Coumadin from plastic surgery standpoint Charges/Coding Visit Charges Inpatient E&M: 86013 Subs Hosp L1
[2024-12-08 08:49] VITALS: BP 102/61; PULSE 88; RESP 18; TEMP 36.8; O2SAT 94
[2024-12-08] MEDS: Phenytoin Na 100 MG Capsule 200 MG PO (09:27)
[2024-12-08] MEDS: Aspirin 81 MG TAB.CHEW PO (09:27)
[2024-12-08] MEDS: cloNIDine HCl 0.1 MG Tablet PO ×2 (09:28→22:43)
[2024-12-08] MEDS: Furosemide 20 MG Tablet 60 MG PO ×2 (09:28→13:19)
--- NOTE | 2024-12-08 12:10 | CASEMGMT ---
RN?CM?PROFESSOR OF NURSING?CM?to room to meet with patient for initial transition planning/care coordination?assessment.?RN?CM?introduced self and role at [facility].? Pt voices understanding and consents to?assessment?at this time.? Pt sitting up in chair in room in no distress at this time.? Pt is A/O at this time and answers all questions appropriately.?? Care providers, pharmacy, and demographics verified/updated at this time. PCP: Dr Garcia Specialists:Se[facility]. [facility] also [facility]. Palliative notified of pt's admission to [facility] via e-mail Preferred Pharmacy: [facility] Insurance: [facility], MMO Prescription Benefit:?Yes Living Will/HPOA:?Has both LW and HCPOA, who is his sister, Kacie COVARRUBIASOK: Sister/POAKacie. 2 sons Living Arrangements: Lives alone @ [facility] in care home apartments. Apt is one-story w/no steps to enter. States is indep w/ADL's, IADL's, and manages his own medications. Sons get his groceries. 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 His sister and adult children provide transportation. DME: ?States has the following DME:?shower chair, grab bars, medical alert, rollator, cane. Pt states no need for further DME at this time.? HHC/SNF: No hx of SNF. Declines wanting to go to SNF at this time, stating he feels he will be okay to discharge back home alone. Active w/[facility] HHC: SN and he would like to resume w/them. He declines offer of other HHC choices. Pt states HHC nurse does dsg changes/wound care and he goes to every Tuesday for same. Inquired if he would like PT/OT added to HHC order, but he states does not feel the need at this time. PT/OT evals pending. Pt wishes to return home and states has no concerns with going home at time of discharge.? CM?to follow for any further discharge planning/needs.? Pt voices no further concerns/needs at this time.? Advised pt to ask for?CM?if any further questions/concerns/needs arise.? Voices understanding. Pt Plan: [facility] Plan: TBD, pending course of treatment and progress w/therapy. If pt able to discharge home alone, [facility], follow for possible addition of PT/OT. Coretta BSN?RN?CM
[2024-12-08] MEDS: DAKIN'S SOL HALF STRENGTH (=0.25%) TOPICAL ×2 (13:20→23:07)
[2024-12-08 13:26] LABS: Vancomycin, Trough Level 17.5 ug/mL (5.0-15.0)
[2024-12-08] MEDS: FLU VACCINE **HIGH DOSE** TV 24-25 180 MCG/0.5 ML SYRINGE IM (13:47)
[2024-12-08 14:50] VITALS: BP 112/64; PULSE 76; RESP 14; TEMP 36.8; O2SAT 96
--- NOTE | 2024-12-08 15:47 | PN.HOSP_ITS ---
Reason for Visit Reason for Visit: Diagnoses Varicose veins of right lower extremity with ulcer of unspecified site (12/07/24) Varicose veins of left lower extremity with ulcer of unspecified site (12/07/24) Venous insufficiency (chronic) (peripheral) (12/07/24) Cellulitis, unspecified (12/07/24) Non-pressure chronic ulcer of unspecified part of right lower leg with unspecified severity (12/07/24) Edema, unspecified (12/07/24) Subjective Subjective Overall feeling well, no concerns of any pain Was informed regarding plan for a conservative approach and no surgery is indicated at this time. Other questions were answered Objective Data Objective Data Vital Signs: Vital Signs Temp Pulse Resp BP Pulse Ox O2 Del Method 98.3 F 88 18 102/61 94 Room Air 12/08/24 08:49 12/08/24 08:49 12/08/24 08:49 12/08/24 08:49 12/08/24 08:49 12/08/24 08:52 Oxygen Delivery Method Room Air Weight: 257 lb 7.999 oz Body Mass Index (BMI) 41.3 Intake & Output: Intake and Output for Last 24 Hours 12/06/24 12/07/24 12/08/24 23:59 23:59 23:59 Intake Total 1690 / 2090 2390 / 2390 Output Total 480 / 905 975 / 975 Balance 1210 / 1185 1415 / 1415 Lab / Micro Data 12/08/24 05:03 12/08/24 05:03 Labs: Laboratory Results - last 24 hr 12/08/24 05:03: WBC 10.9, RBC 3.54 L, Hgb 11.0 L, Hct 33.1 L, MCV 93.5, MCH 31.1, MCHC 33.2, RDW Std Deviation 49.8 H, RDW Coeff of [place] 14.6, Plt Count 408, MPV 9.4, Immature Gran % (Auto) 1.000 H, Neut % (Auto) 79.6 H, Lymph % (Auto) 8.6 L, [place] % (Auto) 9.2, Eos % (Auto) 1.1, Baso % (Auto) 0.5, Absolute Neuts (auto) 8.7 H, Absolute Lymphs (auto) 0.94, Nucleated RBC % 0, PT 34.9 H, INR 3.4, Sodium 139, Potassium 3.7, Chloride Direct 104, Carbon Dioxide 25.2, Anion Gap 10, BUN 12, Creatinine 0.75, Estim Creat Clear Calc 104.23, Est GFR (MDRD) Non-Af 99, BUN/Creatinine Ratio 15.5, Glucose 131 H, Calcium 8.2, Phosphorus 2.9, Magnesium 2.2, Total Bilirubin 0.39, AST 13, ALT 13, Alkaline Phosphatase 66, Total Protein 6.2, Albumin 3.0 L, Globulin 3.3, Albumin/Globulin Ratio 0.9 12/08/24 12:35: Vancomycin Trough 17.5 H Micro: Microbiology 12/07/24 14:30 Wound - Leg, Right Gram Stain - Final 12/07/24 14:30 Wound - Leg, Right Wound Culture - Preliminary Gram negative gaye 12/07/24 14:30 Wound - Leg, Right Skin and Soft Tissue MRSA/MSSA (PCR - Final Radiography Diagnostic Testing: Radiology Impression Abdomen/Pelvis CTA 12/08/24 07:25 IMPRESSION: 1. 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 With lower extremity cellulitis the lower extremity wounds are most likely felt to be a sequela from venous hypertension. 2. Multisegmental moderate arterial in the bilateral tibial vessels with runoff to the feet. 3. Distended gallbladder with cholelithiasis 4. Prostatomegaly 5. Mild right suprapatellar joint effusion One or more dose reduction techniques were used (e.g., Automated exposure control, adjustment of the mA and/or kV according to patient size, use of iterative reconstruction technique). Reading Location: [facility] Physical Exam Const alert, oriented x3 and no apparent distress HEENT head/scalp atraumatic Eyes PERRL Neck no lymphadenopathy Resp normal respiratory effort Cardio regular rate and regular rhythm GI normal to inspection, nondistended, normoactive bowel sounds Extremity Extremity Narrative: Bilateral swelling with discoloration present. Bilateral venous stasis and cellulitis present. Neuro oriented x3 and CN's II-XII intact bilaterally Assessment & Plan Assessment/Plan (1) Cellulitis: PLAN: Plan 69-year-old man with history of chronic lower extremity edema was admitted to the hospital for concerns regarding bilateral lower extremity cellulitis. Imaging findings showed no cellulitis and the plan is to treat him with IV antibiotic at this time. No surgery is indicated. #Acute on chronic bilateral lower extremity wounds/cellulitis -CT shows no abscesses to does not appear that there is any need for debridement at this time -Will continue Coumadin -Broad-spectrum antibiotics with vancomycin and Zosyn -Cultures pending -Patient had recent ABIs and venous ultrasounds both of which were relatively unremarkable other than venous valvular incompetence -Appreciate recommendations Dr. Foss following- -Will start Dakin wet-to-dry dressings BID as well as pressure offloading with offloading bed and elevation of legs. -Continue Lasix 60 mg daily at breakfast and 60 mg at lunch -CT lower extremity showed duodenal obstruction with infrarenal IVC and pelvic and abdominal venous collaterals. Multisegmental moderate arterial in the bilateral tibial vessels with runoff to the feet, distended gallbladder with cholelithiasis, prostatomegaly and mild right suprapatellar joint effusion. # History of pulmonary embolus -INR is therapeutic at 3.4 -Will continue home Coumadin and monitor INR daily # Chronic lower extremity edema -Continue home diuresis with Lasix 60 mg twice daily # Vitamin D deficiency -Continue home ergocalciferol # Seizure history -Continue Dilantin -No signs of toxicity # Essential hypertension/hyperlipidemia -Continue home clonidine -Continue home niacin -Patient with history of statin intolerance -Monitor blood pressures and if consistently greater than 140 systolic we will start as needed hydralazine # Chronic pain -Hold home Ultram -Oxycodone as needed -Hold home turmeric root -Continue home Lyrica # Morbid obesity -BMI is 44.2 -Recommend weight loss -Complicates treatment, prognosis, outcomes # DVT prophylaxis -Patient is therapeutic on Coumadin -Continue home Coumadin -Check daily INR Charges/Coding Visit Charges Inpatient E&M: 08587 Init Hosp L2
--- NOTE | 2024-12-08 17:42 | PCM.RX.CS ---
Consult Antibiotic Management Pharmacy has been consulted to manage selected antibiotic: Vancomycin Type of Intervention Type of Consult: Follow-up Suspected Infection Suspected Infection: Skin/Soft tissue Labs Labs: Sodium 139 mmol/L (133-145) 12/08/24 05:03 Potassium 3.7 mmol/L (3.3-5.1) 12/08/24 05:03 Carbon Dioxide 25.2 mmol/L (22.0-29.0) 12/08/24 05:03 Anion Gap 10 (5-15) 12/08/24 05:03 BUN 12 mg/dL (4-19) 12/08/24 05:03 Creatinine 0.75 mg/dL (0.70-1.20) 12/08/24 05:03 Est GFR (MDRD) Non-Af 99 (>60) 12/08/24 05:03 BUN/Creatinine Ratio 15.5 RATIO (10-20) 12/08/24 05:03 Glucose 131 mg/dL (70-99) H 12/08/24 05:03 Vancomycin Trough 17.5 ug/mL (5.0-15.0) H 12/08/24 12:35 Microbiology Microbiology: Microbiology 12/07/24 14:30 Wound - Leg, Right Gram Stain - Final 12/07/24 14:30 Wound - Leg, Right Wound Culture - Preliminary Gram negative gaye 12/07/24 14:30 Wound - Leg, Right Skin and Soft Tissue MRSA/MSSA (PCR - Final Goal Trough Goal Trough: 15-20 mcg/mL Pharmacy Plan for Drug Dosing Pharmacy Plan for Drug Dosing: VANCOMYCIN LEVEL RECEIVED Current Vancomycin Dose: 1500mg q8h (05, 13, 21) Number of Doses Received: x1 ER dose, x2 1500mg doses Vancomycin Level: 17.5 Hours Since Last Dose: 7.5 hours since last 1500mg dose Renal Function: SrCr 0.75 Renal Function Trend: SrCr stable (was 0.78) Lab/Micro: Vancomycin Plan/Comments: resulted trough of 17.5 is within the ordered goal trough range of 15-20. recommend continuing current dose of 1500mg q8h and checking a trough on 12/09/24 at 1230 Pending Level: 12/09/24 at 1230 Pharmacy Service will continue to monitor and adjust dosing as required. Follow-Up Labs Follow-Up Labs: Trough: Vancomycin (12/09/24 at 1230)
[2024-12-08 21:00] VITALS: BP 121/65; PULSE 85; RESP 16; TEMP 36.9; O2SAT 100
[2024-12-08] MEDS: Phenytoin Na 100 MG Capsule PO (22:30)
[2024-12-08 23:00] VITALS: PULSE 85; O2SAT 100
[2024-12-09] MEDS: oxyCODONE 5 MG Tablet PO ×3 (01:59→18:12)
[2024-12-09 03:00] VITALS: BP 95/59; PULSE 78; RESP 16; TEMP 36.6; O2SAT 95
[2024-12-09] MEDS: Nystatin Powder 15gm Bottle 1 APPLIC TOPICAL ×4 (04:00→22:30)
[2024-12-09 05:46] LABS: Absolute Lymphocyte Count 1.45 X10^3/uL (0.83-4.51); Absolute Neutrophil Count 5.3 X10^3/uL (2.0-7.7); Basophil# 0.04 X10^3/uL; Basophil% 0.5 % (0-1); Eosinophils% 4.9 % (0-5); Hematocrit 32.3 % (40-54); Hemoglobin 10.5 g/dL (13.0-16.5); Lymphocyte # 1.45 X10^3/ul (0.83-4.51); Lymphocyte % 17.7 % (19-41); Mean Corp Hgb Conc 32.5 g/dL (32-36); Mean Corpuscular Hgb 30.8 pg (27.0-32.0); Mean Corpuscular Volume 94.7 fL (80-94); Mean Platelet Vol. 9.5 fl (6.2-12.0); Monocyte# 0.92 X10^3/uL; Monocyte% 11.3 % (0-10); NRBC Flagged by Analyzer 0 % (0-5); Neutrophil # 5.27 X10^3/uL (2.7-7.7); Neutrophil % 64.5 % (47-70); Platelet Count 385 K/mm3 (150-450); RBC Distribution Width CV 14.7 % (11.6-14.6); RBC Distribution Width SD 51.6 fl (35.1-43.9); Red Blood Count 3.41 M/mm3 (4.6-6.2); White Blood Count 8.2 K/mm3 (4.4-11.0)
[2024-12-09 06:00] VITALS: BMI 46.2
[2024-12-09] MEDS: Baclofen 10 MG Tablet PO ×3 (06:04→22:30)
[2024-12-09] MEDS: Acetaminophen 500 MG Tablet 1000 MG PO ×3 (06:05→22:29)
[2024-12-09] MEDS: traMADol 50 MG Tablet PO ×3 (06:10→22:30)
[2024-12-09] MEDS: Pregabalin 75 MG Capsule 150 MG PO ×3 (06:10→22:28)
[2024-12-09] MEDS: Vancomycin HCl 1,500 MG in 0.9% Normal Saline (500mL Bag) 500 ML 250 MG IV (06:11)
[2024-12-09] MEDS: Piperacil/Tazobactam 3.375 GM in 0.9% Normal Saline (50mL MB+) 50 ML IV ×3 (06:12→22:30)
[2024-12-09 06:15] LABS: International Normalized Ratio 2.6; Prothrombin Time (Protime)PT. 28.1 SECONDS (11.7-14.9)
[2024-12-09 06:43] LABS: Anion Gap 9 (5-15); BUN 19 mg/dL (4-19); BUN/Creat Ratio 26.8 RATIO (10-20); Calcium 8.7 mg/dL (7.6-11.0); Carbon Dioxide 25.1 mmol/L (22.0-29.0); Chloride 105 mmol/L (96-108); Creatinine, Serum 0.71 mg/dL (0.70-1.20); EST Glomerular Filtration Rate 101 (>60); Estimated Creatinine Clearance 107.27 ml/min (50-250); Glucose 126 mg/dL (70-99); Potassium 3.8 mmol/L (3.3-5.1); Sodium Level 138 mmol/L (133-145)
[2024-12-09 09:00] VITALS: BP 98/58; PULSE 84; RESP 14; TEMP 36.8; O2SAT 96
[2024-12-09] MEDS: Phenytoin Na 100 MG Capsule 200 MG PO (09:51)
[2024-12-09] MEDS: Furosemide 20 MG Tablet 60 MG PO ×2 (09:52→14:08)
[2024-12-09] MEDS: cloNIDine HCl 0.1 MG Tablet PO ×2 (09:52→22:29)
[2024-12-09] MEDS: DAKIN'S SOL HALF STRENGTH (=0.25%) TOPICAL ×2 (09:52→22:32)
[2024-12-09] MEDS: Senna Tablet 2 TABLET PO (10:03)
[2024-12-09] MEDS: Aspirin 81 MG TAB.CHEW PO (11:04)
--- NOTE | 2024-12-09 12:32 | PCM.PN.SRG ---
Subjective Subjective Patient's pain controlled today. 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 With lower extremity cellulitis the lower extremity wounds are most likely felt to be a sequela from venous hypertension. Objective Data Objective Data Vital Signs: Vital Signs Temp Pulse Resp BP Pulse Ox O2 Del Method 98.2 F 84 14 98/58 L 96 Room Air 12/09/24 09:00 12/09/24 09:00 12/09/24 09:00 12/09/24 09:00 12/09/24 09:00 12/09/24 11:27 Oxygen Delivery Method Room Air Weight: 270 lb 11.642 oz Body Mass Index (BMI) 46.2 Intake & Output: Intake and Output for Last 24 Hours 12/07/24 12/08/24 12/09/24 23:59 23:59 23:59 Intake Total 1690 / 2090 3470 / 3970 1660 / 1660 Output Total 480 / 905 1275 / 2075 1100 / 1100 Balance 1210 / 1185 2195 / 1895 560 / 560 Lab / Micro Data 12/09/24 05:12 12/09/24 05:12 Labs: Laboratory Results - last 24 hr 12/08/24 12:35: Vancomycin Trough 17.5 H 12/09/24 05:12: WBC 8.2, RBC 3.41 L, Hgb 10.5 L, Hct 32.3 L, MCV 94.7 H, MCH 30.8, MCHC 32.5, RDW Std Deviation 51.6 H, RDW Coeff of [place] 14.7 H, Plt Count 385, MPV 9.5, Immature Gran % (Auto) 1.100 H, Neut % (Auto) 64.5, Lymph % (Auto) 17.7 L, [place] % (Auto) 11.3 H, Eos % (Auto) 4.9, Baso % (Auto) 0.5, Absolute Neuts (auto) 5.3, Absolute Lymphs (auto) 1.45, Nucleated RBC % 0, PT 28.1 H, INR 2.6, Sodium 138, Potassium 3.8, Chloride Direct 105, Carbon Dioxide 25.1, Anion Gap 9, BUN 19, Creatinine 0.71, Estim Creat Clear Calc 107.27, Est GFR (MDRD) Non-Af 101, BUN/Creatinine Ratio 26.8 H, Glucose 126 H, Calcium 8.7 Micro: Microbiology 12/07/24 10:59 Blood Culture (Wb) - Right Forearm Blood Culture - Preliminary No growth in 48 hours. 12/07/24 10:59 Blood Culture (Wb) - Anticubital Right Blood Culture - Preliminary No growth in 48 hours. 12/07/24 14:30 Wound - Leg, Right Gram Stain - Final 12/07/24 14:30 Wound - Leg, Right Wound Culture - Preliminary Providencia stuartii Gram Positive Cocci Gram positive gaye 12/07/24 14:30 Wound - Leg, Right Skin and Soft Tissue MRSA/MSSA (PCR - Final Physical Exam Narrative LOWER EXTREMITIES Inspection/Palpation. Lower extremities are pressure offloaded with padding and pillows, no pressure on Achilles or the heals and wounds. No ascending cellulitis or crepitus. Dressings in place. No malodor or strike through. Vascular: His feet are warm with 2+ dorsalis pedis pulses bilaterally Sensation: Intact to light touch bilaterally. Motor: Able to plantarflex/dorsiflex feet bilaterally (5/5) Const alert, oriented x3 and no apparent distress General Appearance: cooperative and comfortable HEENT normocephalic and head/scalp atraumatic Lymph Lymphatic: lymphedema moderate Resp normal respiratory effort Effort and Inspection: able to speak in complete sentences Cardio regular rate and regular rhythm Extremity General Extremity: edema bilateral lower extremity Details: severe Skin General Skin Exam: venous stasis and dermatitis Wounds: wounds noted Psych mental status grossly normal, thought process normal, cooperative and affect normal Assessment & Plan Assessment/Plan (1) Venous ulcer of right lower extremity with varicose veins: (2) Venous ulcer of left lower extremity with varicose veins: (3) Edema: QUALIFIERS: Edema type: unspecified Qualified Code(s): R60.9 - Edema, unspecified (4) Venous insufficiency: (5) Cellulitis: PLAN: Plan Recommending Dakin's wet-to-dry dressings twice daily to the lower extremities (discussed with nursing staff), as well as pressure offloading with pressure offloading bed and elevation of the legs with pressure offloading using pillows (no pressure on calf or Achilles/posterior leg). Agree with plan for diuresis for lower extremity swelling. Plan for gentle compression with Marcio wrap's as well. Agree with vascular surgery consultation for lower extremity venous insufficiency demonstrated on CT aorta/runoff. Recommending vascular surgery be involved. Once we rule out the need for a vascular intervention, we can likely increase compression and consider serial debridement. He does have a reassuring pulse exam and decent blood flow and his ABIs, albeit calcified. Plastic surgery will continue to follow. Agree with broad-spectrum antibiotics for cellulitis. Okay to continue Coumadin from plastic surgery standpoint Charges/Coding Visit Charges Inpatient E&M: 13930 [facility] Hosp L1
[2024-12-09] MEDS: Vancomycin Trough/Random Due 1 LAB MC (12:39)
[2024-12-09 13:32] LABS: Vancomycin, Trough Level 26.6 ug/mL (5.0-15.0)
--- NOTE | 2024-12-09 13:33 | PCM.PN.HOSP ---
Reason for Visit Reason for Visit: Diagnoses Varicose veins of right lower extremity with ulcer of unspecified site (12/07/24) Varicose veins of left lower extremity with ulcer of unspecified site (12/07/24) Venous insufficiency (chronic) (peripheral) (12/07/24) Cellulitis, unspecified (12/07/24) Non-pressure chronic ulcer of unspecified part of right lower leg with unspecified severity (12/07/24) Edema, unspecified (12/07/24) Subjective Subjective Pain present over the lateral right leg, restarted home tramadol, taking Oxy only as needed Has been constipated for the last couple of days, hopeful about improvement with senna Objective Data Objective Data Vital Signs: Vital Signs Temp Pulse Resp BP Pulse Ox O2 Del Method 98.2 F 84 14 98/58 L 96 Room Air 12/09/24 09:00 12/09/24 09:00 12/09/24 09:00 12/09/24 09:00 12/09/24 09:00 12/09/24 11:27 Oxygen Delivery Method Room Air Weight: 270 lb 11.642 oz Body Mass Index (BMI) 46.2 Intake & Output: Intake and Output for Last 24 Hours 12/07/24 12/08/24 12/09/24 23:59 23:59 23:59 Intake Total 1690 / 2090 3470 / 3970 2760 / 2760 Output Total 480 / 905 1275 / 2075 1750 / 1750 Balance 1210 / 1185 2195 / 1895 1010 / 1010 Lab / Micro Data 12/09/24 05:12 12/09/24 05:12 Labs: Laboratory Results - last 24 hr 12/09/24 05:12: WBC 8.2, RBC 3.41 L, Hgb 10.5 L, Hct 32.3 L, MCV 94.7 H, MCH 30.8, MCHC 32.5, RDW Std Deviation 51.6 H, RDW Coeff of [place] 14.7 H, Plt Count 385, MPV 9.5, Immature Gran % (Auto) 1.100 H, Neut % (Auto) 64.5, Lymph % (Auto) 17.7 L, [place] % (Auto) 11.3 H, Eos % (Auto) 4.9, Baso % (Auto) 0.5, Absolute Neuts (auto) 5.3, Absolute Lymphs (auto) 1.45, Nucleated RBC % 0, PT 28.1 H, INR 2.6, Sodium 138, Potassium 3.8, Chloride Direct 105, Carbon Dioxide 25.1, Anion Gap 9, BUN 19, Creatinine 0.71, Estim Creat Clear Calc 107.27, Est GFR (MDRD) Non-Af 101, BUN/Creatinine Ratio 26.8 H, Glucose 126 H, Calcium 8.7 12/09/24 12:30: Vancomycin Trough 26.6 H Micro: Microbiology 12/07/24 10:59 Blood Culture (Wb) - Right Forearm Blood Culture - Preliminary No growth in 48 hours. 12/07/24 10:59 Blood Culture (Wb) - Anticubital Right Blood Culture - Preliminary No growth in 48 hours. 12/07/24 14:30 Wound - Leg, Right Gram Stain - Final 12/07/24 14:30 Wound - Leg, Right Wound Culture - Preliminary Providencia stuartii Gram Positive Cocci Gram positive gaye 12/07/24 14:30 Wound - Leg, Right Skin and Soft Tissue MRSA/MSSA (PCR - Final Physical Exam Const alert and oriented x3 HEENT head/scalp atraumatic Eyes PERRL Neck no lymphadenopathy Resp normal respiratory effort and no retractions Cardio regular rate and regular rhythm GI normal to inspection, nondistended, normoactive bowel sounds Extremity Extremity Narrative: Wound could not be examined today because of wrap, no superficial tenderness present Neuro oriented x3, CN's II-XII intact bilaterally and moves all extremities Psych affect normal Assessment & Plan Assessment/Plan (1) Cellulitis: PLAN: Plan 69-year-old man with history of chronic lower extremity edema was admitted to the hospital for concerns regarding bilateral lower extremity cellulitis. Imaging findings showed no cellulitis and the plan is to treat him with IV antibiotic at this time. No surgery is indicated. CT scan showed lower extremity venous insufficiency, will consult vascular surgery #Acute on chronic bilateral lower extremity wounds/cellulitis -CT shows no abscesses to does not appear that there is any need for debridement at this time -Will continue Coumadin -Broad-spectrum antibiotics with vancomycin and Zosyn -Cultures pending -Patient had recent ABIs and venous ultrasounds both of which were relatively unremarkable other than venous valvular incompetence -Appreciate recommendations Dr. Foss following- -Will start Dakin wet-to-dry dressings BID as well as pressure offloading with offloading bed and elevation of legs. -Continue Lasix 60 mg daily at breakfast and 60 mg at lunch -CT lower extremity showed duodenal obstruction with infrarenal IVC and pelvic and abdominal venous collaterals. Multisegmental moderate arterial in the bilateral tibial vessels with runoff to the feet, distended gallbladder with cholelithiasis, prostatomegaly and mild right suprapatellar joint effusion. Will consult vascular surgery # History of pulmonary embolus -INR is therapeutic at 2.6 -Will continue home Coumadin and monitor INR daily # Chronic lower extremity edema -Continue home diuresis with Lasix 60 mg twice daily # Vitamin D deficiency -Continue home ergocalciferol # Seizure history -Continue Dilantin -No signs of toxicity # Essential hypertension/hyperlipidemia -Continue home clonidine -Continue home niacin -Patient with history of statin intolerance -Monitor blood pressures and if consistently greater than 140 systolic we will start as needed hydralazine # Chronic pain -Hold home Ultram -Oxycodone as needed -Hold home turmeric root -Continue home Lyrica # Morbid obesity -BMI is 44.2 -Recommend weight loss -Complicates treatment, prognosis, outcomes # DVT prophylaxis -Patient is therapeutic on Coumadin -Continue home Coumadin -Check daily INR Charges/Coding Visit Charges Inpatient E&M: 85120 Init Hosp L2
--- NOTE | 2024-12-09 16:39 | PCM.RX.CS ---
Consult Antibiotic Management Pharmacy has been consulted to manage selected antibiotic: Vancomycin Type of Intervention Type of Consult: Follow-up Suspected Infection Suspected Infection: Skin/Soft tissue Labs Labs: Sodium 138 mmol/L (133-145) 12/09/24 05:12 Potassium 3.8 mmol/L (3.3-5.1) 12/09/24 05:12 Carbon Dioxide 25.1 mmol/L (22.0-29.0) 12/09/24 05:12 Anion Gap 9 (5-15) 12/09/24 05:12 BUN 19 mg/dL (4-19) 12/09/24 05:12 Creatinine 0.71 mg/dL (0.70-1.20) 12/09/24 05:12 Est GFR (MDRD) Non-Af 101 (>60) 12/09/24 05:12 BUN/Creatinine Ratio 26.8 RATIO (10-20) H 12/09/24 05:12 Glucose 126 mg/dL (70-99) H 12/09/24 05:12 Vancomycin Trough 26.6 ug/mL (5.0-15.0) H 12/09/24 12:30 Microbiology Microbiology: Microbiology 12/07/24 10:59 Blood Culture (Wb) - Right Forearm Blood Culture - Preliminary No growth in 48 hours. 12/07/24 10:59 Blood Culture (Wb) - Anticubital Right Blood Culture - Preliminary No growth in 48 hours. 12/07/24 14:30 Wound - Leg, Right Gram Stain - Final 12/07/24 14:30 Wound - Leg, Right Wound Culture - Preliminary Providencia stuartii Gram Positive Cocci Gram positive gaye 12/07/24 14:30 Wound - Leg, Right Skin and Soft Tissue MRSA/MSSA (PCR - Final Goal Trough Goal Trough: 15-20 mcg/mL Pharmacy Plan for Drug Dosing Pharmacy Plan for Drug Dosing: VANCOMYCIN LEVEL RECEIVED Current Vancomycin Dose: 1500MG Q8H (05, 13, 21) Number of Doses Received: Vancomycin Level: 26.6 (DRAWN 12/09/24 AT 1230) Hours Since Last Dose: APPROX 6 HOURS SINCE LAST 1500MG DOSE ON 12/09/24 AT 0611 Renal Function: SRCR 0.71 Renal Function Trend: SRCR STABLE Lab/Micro: Vancomycin Plan/Comments: RESULTED TROUGH OF 26.6 IS ABOVE THE ORDERED GOAL TROUGH RANGE OF 15-20. RECOMMEND HOLDING FUTURE DOSES AND CHECKING A RANDOM LEVEL 12/10/24 AT 0600 Pending Level: RANDOM LEVEL 12/10/24 AT 0600 Pharmacy Service will continue to monitor and adjust dosing as required. Follow-Up Labs Follow-Up Labs: Trough: Vancomycin (RANDOM LEVEL 12/10/24 AT 0600)
[2024-12-09 18:19] VITALS: BP 101/62; PULSE 74; RESP 14; TEMP 36.8; O2SAT 94
[2024-12-09 22:22] VITALS: BP 117/69; PULSE 81; RESP 16; TEMP 36.7; O2SAT 93
[2024-12-09] MEDS: Phenytoin Na 100 MG Capsule PO (22:29)
[2024-12-09] MEDS: 0.9% Saline Lock 10 ML Syringe IV (22:31)
[2024-12-10] MEDS: oxyCODONE 5 MG Tablet PO ×5 (01:44→23:34)
[2024-12-10] MEDS: traMADol 50 MG Tablet PO ×2 (04:24→21:22)
[2024-12-10] MEDS: 0.9% Normal Saline (100mL Bag) 100 ML 15 ML IV (04:25)
[2024-12-10] MEDS: 0.9% Saline Lock 10 ML Syringe IV (04:27)
[2024-12-10 04:39] VITALS: BP 112/71; PULSE 73; RESP 18; TEMP 36.7; O2SAT 97
[2024-12-10] MEDS: Pregabalin 75 MG Capsule 150 MG PO ×3 (04:50→21:21)
[2024-12-10] MEDS: Acetaminophen 500 MG Tablet 1000 MG PO ×3 (04:50→21:22)
[2024-12-10] MEDS: Baclofen 10 MG Tablet PO ×3 (04:50→21:22)
[2024-12-10] MEDS: Nystatin Powder 15gm Bottle 1 APPLIC TOPICAL ×3 (04:51→23:34)
[2024-12-10] MEDS: Piperacil/Tazobactam 3.375 GM in 0.9% Normal Saline (50mL MB+) 50 ML IV ×3 (06:02→23:30)
[2024-12-10 06:39] LABS: International Normalized Ratio 2.2; Prothrombin Time (Protime)PT. 24.6 SECONDS (11.7-14.9)
[2024-12-10 06:52] LABS: Vancomycin, Random Level 12.2 ug/mL (0.0-15.0)
--- NOTE | 2024-12-10 07:06 | PCM.RX.CS ---
Consult Antibiotic Management Pharmacy has been consulted to manage selected antibiotic: Vancomycin Type of Intervention Type of Consult: Follow-up Suspected Infection Suspected Infection: Skin/Soft tissue Prior Doses of Antibiotics Prior Doses of Antibiotics Received/Current Regimen: Vancomycin 1500 mg IV Q8H last dose given 12/09 @ 0611 Labs Labs: Sodium 138 mmol/L (133-145) 12/09/24 05:12 Potassium 3.8 mmol/L (3.3-5.1) 12/09/24 05:12 Carbon Dioxide 25.1 mmol/L (22.0-29.0) 12/09/24 05:12 Anion Gap 9 (5-15) 12/09/24 05:12 BUN 19 mg/dL (4-19) 12/09/24 05:12 Creatinine 0.71 mg/dL (0.70-1.20) 12/09/24 05:12 Est GFR (MDRD) Non-Af 101 (>60) 12/09/24 05:12 BUN/Creatinine Ratio 26.8 RATIO (10-20) H 12/09/24 05:12 Glucose 126 mg/dL (70-99) H 12/09/24 05:12 Vancomycin Trough 26.6 ug/mL (5.0-15.0) H 12/09/24 12:30 Random Vancomycin 12.2 ug/mL (0.0-15.0) 12/10/24 06:12 Microbiology Microbiology: Microbiology 12/07/24 10:59 Blood Culture (Wb) - Right Forearm Blood Culture - Preliminary No growth in 48 hours. 12/07/24 10:59 Blood Culture (Wb) - Anticubital Right Blood Culture - Preliminary No growth in 48 hours. 12/07/24 14:30 Wound - Leg, Right Gram Stain - Final 12/07/24 14:30 Wound - Leg, Right Wound Culture - Preliminary Providencia stuartii Gram Positive Cocci Gram positive gaye 12/07/24 14:30 Wound - Leg, Right Skin and Soft Tissue MRSA/MSSA (PCR - Final Dosing Weight Weight used for dosin kg Estimated Creatinine Clearance Estimated Creatinine Clearance: ~ 107 Goal Trough Goal Trough: 15-20 mcg/mL Pharmacy Plan for Drug Dosing Pharmacy Plan for Drug Dosing: Vancomycin random this AM = 12.2, new dose 1000 mg Q8H Pharmacy Service will continue to monitor and adjust dosing as required. Follow-Up Labs Follow-Up Labs: Trough: Vancomycin Date/Time Labs Ordered Labs to be done on [date and time ordered]: 12/11/24 @ 5313
[2024-12-10] MEDS: Vancomycin IV 1,000 MG/200 ML BAG 200 MG IV ×3 (08:15→21:29)
[2024-12-10] MEDS: cloNIDine HCl 0.1 MG Tablet PO ×2 (08:21→23:36)
[2024-12-10] MEDS: Phenytoin Na 100 MG Capsule 200 MG PO (08:21)
[2024-12-10] MEDS: Furosemide 20 MG Tablet 60 MG PO ×2 (08:22→11:43)
[2024-12-10] MEDS: Aspirin 81 MG TAB.CHEW PO (08:26)
[2024-12-10] MEDS: Senna Tablet 2 TABLET PO (08:26)
[2024-12-10 08:31] LABS: Absolute Lymphocyte Count 1.49 X10^3/uL (0.83-4.51); Absolute Neutrophil Count 3.8 X10^3/uL (2.0-7.7); Basophil# 0.04 X10^3/uL; Basophil% 0.6 % (0-1); Eosinophil# 0.44 X10^3/uL; Eosinophils% 6.8 % (0-5); Hematocrit 35.2 % (40-54); Hemoglobin 11.3 g/dL (13.0-16.5); Lymphocyte # 1.49 X10^3/ul (0.83-4.51); Mean Corp Hgb Conc 32.1 g/dL (32-36); Mean Corpuscular Hgb 30.4 pg (27.0-32.0); Mean Corpuscular Volume 94.6 fL (80-94); Mean Platelet Vol. 9.4 fl (6.2-12.0); Monocyte# 0.69 X10^3/uL; Monocyte% 10.7 % (0-10); NRBC Flagged by Analyzer 0 % (0-5); Neutrophil # 3.75 X10^3/uL (2.7-7.7); Platelet Count 454 K/mm3 (150-450); RBC Distribution Width CV 14.6 % (11.6-14.6); RBC Distribution Width SD 50.9 fl (35.1-43.9); Red Blood Count 3.72 M/mm3 (4.6-6.2); White Blood Count 6.5 K/mm3 (4.4-11.0)
--- NOTE | 2024-12-10 09:04 | PCM.PN.SRG ---
Subjective Subjective Patient's pain controlled today. Awaiting vascular surgery consultation/recommendations today. Objective Data Objective Data Vital Signs: Vital Signs Temp Pulse Resp BP Pulse Ox O2 Del Method 98.1 F 73 18 112/71 97 Room Air 12/10/24 04:39 12/10/24 04:39 12/10/24 04:39 12/10/24 04:39 12/10/24 04:39 12/10/24 04:39 Oxygen Delivery Method Room Air Weight: 270 lb 11.642 oz Body Mass Index (BMI) 46.2 Intake & Output: Intake and Output for Last 24 Hours 12/08/24 12/09/24 12/10/24 23:59 23:59 23:59 Intake Total 3470 / 3970 3310 / 3310 50 / 50 Output Total 1275 / 2075 2500 / 3600 1900 / 1900 Balance 2195 / 1895 810 / -290 -1850 / -1850 Lab / Micro Data 12/10/24 06:12 12/09/24 05:12 Labs: Laboratory Results - last 24 hr 12/09/24 12:30: Vancomycin Trough 26.6 H 12/10/24 06:12: WBC 6.5, RBC 3.72 L, Hgb 11.3 L, Hct 35.2 L, MCV 94.6 H, MCH 30.4, MCHC 32.1, RDW Std Deviation 50.9 H, RDW Coeff of [place] 14.6, Plt Count 454 H, MPV 9.4, Immature Gran % (Auto) 0.900, Neut % (Auto) 58.0, Lymph % (Auto) 23.0, [place] % (Auto) 10.7 H, Eos % (Auto) 6.8 H, Baso % (Auto) 0.6, Absolute Neuts (auto) 3.8, Absolute Lymphs (auto) 1.49, Nucleated RBC % 0, PT 24.6 H, INR 2.2, Random Vancomycin 12.2 Micro: Microbiology 12/07/24 10:59 Blood Culture (Wb) - Right Forearm Blood Culture - Preliminary No growth in 48 hours. 12/07/24 10:59 Blood Culture (Wb) - Anticubital Right Blood Culture - Preliminary No growth in 48 hours. 12/07/24 14:30 Wound - Leg, Right Gram Stain - Final 12/07/24 14:30 Wound - Leg, Right Wound Culture - Preliminary Providencia stuartii Gram Positive Cocci Gram positive gaye 12/07/24 14:30 Wound - Leg, Right Skin and Soft Tissue MRSA/MSSA (PCR - Final Physical Exam Narrative LOWER EXTREMITIES Inspection/Palpation. Lower extremities are pressure offloaded with padding and pillows, no pressure on Achilles or the heals and wounds. Dressings in place. No malodor or strike through. Dressings removed and no surrounding cellulitis. Much improved swelling. Vascular: His feet are warm with 2+ dorsalis pedis pulses bilaterally Sensation: Intact to light touch bilaterally. Motor: Able to plantarflex/dorsiflex feet bilaterally (5/5) Const alert, oriented x3 and no apparent distress General Appearance: cooperative and comfortable HEENT normocephalic and head/scalp atraumatic Lymph Lymphatic: lymphedema moderate Resp normal respiratory effort Effort and Inspection: able to speak in complete sentences Cardio regular rate and regular rhythm Extremity General Extremity: edema bilateral lower extremity Details: severe Skin General Skin Exam: venous stasis and dermatitis Wounds: wounds noted Psych mental status grossly normal, thought process normal, cooperative and affect normal Assessment & Plan Assessment/Plan (1) Venous ulcer of right lower extremity with varicose veins: (2) Venous ulcer of left lower extremity with varicose veins: (3) Edema: QUALIFIERS: Edema type: unspecified Qualified Code(s): R60.9 - Edema, unspecified (4) Venous insufficiency: (5) Cellulitis: PLAN: Plan Recommending Dakin's wet-to-dry dressings twice daily to the lower extremities (discussed with nursing staff), as well as pressure offloading with pressure offloading bed and elevation of the legs with pressure offloading using pillows (no pressure on calf or Achilles/posterior leg). Agree with plan for diuresis for lower extremity swelling. Plan for gentle compression with Marcio wrap's as well. Agree with vascular surgery consultation for lower extremity venous insufficiency demonstrated on CT aorta/runoff. Once we rule out the need for a vascular intervention, we can likely increase compression and consider serial debridement. He does have a reassuring pulse exam and decent blood flow and his ABIs, albeit calcified. Plastic surgery will continue to follow. Agree with broad-spectrum antibiotics for cellulitis. Okay to continue Coumadin from plastic surgery standpoint Charges/Coding Visit Charges Inpatient E&M: 03067 Subs Hosp L1
[2024-12-10 09:33] VITALS: BP 116/73; PULSE 75; RESP 16; TEMP 37.1; O2SAT 98
[2024-12-10 10:00] LABS: Anion Gap 10 (5-15); BUN 18 mg/dL (4-19); BUN/Creat Ratio 28.4 RATIO (10-20); Calcium 8.4 mg/dL (7.6-11.0); Chloride 103 mmol/L (96-108); Creatinine, Serum 0.64 mg/dL (0.70-1.20); EST Glomerular Filtration Rate 104 (>60); Estimated Creatinine Clearance 107.27 ml/min (50-250); Glucose 95 mg/dL (70-99); Potassium 3.6 mmol/L (3.3-5.1); Sodium Level 137 mmol/L (133-145)
--- NOTE | 2024-12-10 11:11 | PN_ITS ---
Subjective Subjective Patient seen and examined. He was sitting comfortably in bed. He had no active complaints. He denied any fever or chills, nausea vomiting or shortness of breath. Review of symptoms otherwise negative. He is awaiting evaluation by vascular surgery. Objective Data Objective Data Vital Signs: Vital Signs Temp Pulse Resp BP Pulse Ox O2 Del Method 98.8 F 75 16 116/73 98 Room Air 12/10/24 09:33 12/10/24 09:33 12/10/24 09:33 12/10/24 09:33 12/10/24 09:33 12/10/24 10:35 Oxygen Delivery Method Room Air Weight: 270 lb 11.642 oz Body Mass Index (BMI) 46.2 Intake & Output: Intake and Output for Last 24 Hours 12/08/24 12/09/24 12/10/24 23:59 23:59 23:59 Intake Total 3470 / 3970 3310 / 3310 300 / 300 Output Total 1275 / 2075 2500 / 3600 1900 / 1900 Balance 2195 / 1895 810 / -290 -1600 / -1600 Lab / Micro Data 12/10/24 06:12 12/10/24 06:12 Labs: Laboratory Results - last 24 hr 12/09/24 12:30: Vancomycin Trough 26.6 H 12/10/24 06:12: WBC 6.5, RBC 3.72 L, Hgb 11.3 L, Hct 35.2 L, MCV 94.6 H, MCH 30.4, MCHC 32.1, RDW Std Deviation 50.9 H, RDW Coeff of [place] 14.6, Plt Count 454 H, MPV 9.4, Immature Gran % (Auto) 0.900, Neut % (Auto) 58.0, Lymph % (Auto) 23.0, [place] % (Auto) 10.7 H, Eos % (Auto) 6.8 H, Baso % (Auto) 0.6, Absolute Neuts (auto) 3.8, Absolute Lymphs (auto) 1.49, Nucleated RBC % 0, PT 24.6 H, INR 2.2, Sodium 137, Potassium 3.6, Chloride Direct 103, Carbon Dioxide 25.0, Anion Gap 10, BUN 18, Creatinine 0.64 L, Estim Creat Clear Calc 107.27, Est GFR (MDRD) Non-Af 104, BUN/Creatinine Ratio 28.4 H, Glucose 95, Calcium 8.4, Random Vancomycin 12.2 Micro: Microbiology 12/07/24 14:30 Wound - Leg, Right Gram Stain - Final 12/07/24 14:30 Wound - Leg, Right Wound Culture - Final Providencia stuartii Enterococcus faecalis Clostridium cadaveris 12/07/24 14:30 Wound - Leg, Right Skin and Soft Tissue MRSA/MSSA (PCR - Final 12/07/24 10:59 Blood Culture (Wb) - Right Forearm Blood Culture - Preliminary No growth in 48 hours. 12/07/24 10:59 Blood Culture (Wb) - Anticubital Right Blood Culture - Preliminary No growth in 48 hours. Physical Exam Const alert, oriented x3 and no apparent distress Constitutional Narrative: Class III obesity. HEENT normocephalic, head/scalp atraumatic and moist oral mucous membranes Eyes PERRL and EOMs intact bilaterally Neck no lymphadenopathy and supple Lymph Lymphatic: no lymphadenopathy noted and no lymphedema noted Resp Resp Narrative: mildly diminished breath sounds bibasally, no wheezes or crackles. On room air. Cardio regular rate, regular rhythm, S1 normal heart sound, S2 normal heart sound and no murmurs GI normal to inspection, nondistended, normoactive bowel sounds, soft to palpation, non-tender and non-distended Extremity normal capillary refill Extremity Narrative: mild LE bipedal edema, superficial ulcerations above medial malleolus General Extremity: no tenderness to palpation of joints or extremities Skin Skin Narrative: as under extremities. Neuro CN's II-XII intact bilaterally, no focal motor deficits and no sensory deficits noted Motor Exam: strength 5/5 throughout and general weakness Psych thought process normal, cooperative and affect normal Appearance: appropriate Assessment & Plan Assessment/Plan (1) Cellulitis: (2) Venous ulcer of right lower extremity with varicose veins: PLAN: Plan #Acute on chronic bilateral lower extremity wounds and cellulitis * On IV vancomycin and Zosyn. * Plastic surgery consulted and recommended wet-to-dry Dakin's dressings twice daily as well as pressure offloading and elevation of legs. * Had had recent ABIs which showed no evidence of occlusion and also had venous ultrasound which showed no evidence of blood clots. * CT of the lower extremities done however showed obstruction of the infrarenal IVC and pelvic and abdominal venous collaterals with multisegmental moderate arterial sclerosis in the bilateral tibial vessels with runoff to the feet and distended gallbladder with cholelithiasis as well as prostatomegaly and right suprapatellar joint effusion. * Vascular surgery consulted. Await recs. * On Lasix 60 mg twice daily for lower extremity edema #History of pulmonary embolism: On Coumadin. INR is therapeutic #History of seizure disorder: On Dilantin. #Benign essential hypertension: On clonidine #Hyperlipidemia: Not on statins due to history of intolerance #History of chronic pain syndrome: On oxycodone as needed as well as Lyrica #BPH: * CT abdomen pelvis with runoff showed prostatomegaly. * Currently not having any obstructive symptoms. * To follow-up with urology on outpatient basis. #Asymptomatic cholelithiasis: * CT of the abdomen and pelvis with runoff showed distended gallbladder with cholelithiasis. * Currently asymptomatic. Follow-up with PCP on outpatient basis. * #Class III obesity: BMI is 46.5. Complicates acute care, expected recovery and prognosis. #DVT prophylaxis: Already on Coumadin. INR is therapeutic at 2.2 today. Charges/Coding Visit Charges Inpatient E&M: 20051 Subs Hosp L2
[2024-12-10] MEDS: DAKIN'S SOL HALF STRENGTH (=0.25%) TOPICAL ×2 (11:43→23:36)
[2024-12-10 11:47] VITALS: BP 105/59; PULSE 69; RESP 16; TEMP 36.6; O2SAT 97
--- NOTE | 2024-12-10 12:20 | CON.PCM.SX_ITS ---
Assessment & Plan Assessment/Plan (1) Acquired occlusion of inferior vena cava: PLAN: -CT images reviewed, chronic occluded/obliterated IVC at prior filter -prior duplex reveals extensive chronic DVT bilateral lower extremities, superficial reflux -IVC occlusion underlying cause of both his infrainguinal thrombotic findings and likely his valvular failure -discussed risks/benefits/alternatives; would recommend attempt to recanalize IVC/iliac veins -with chronic infra inguinal findings would plan for venogram from popliteal access first to further assess potential inflow quality -will arrange as outpatient -pending result of efforts could also address GSV incompetence if wounds persist HPI Consult Data Date of Consult: 12/10/24 HPI Narrative HPI Narrative: ESTEBAN URBINA, is a 69 M who presents with chronic bilateral lower extremity wounds that have been present for 3 years with worsening appearance and concern for cellulitis. Prior to this had bilateral LE edema, discoloration gradually worsening over the past 10 years. 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 He has been maintained on coumadin for many years without VTE recurrence or bleeding concerns. [facility] Medical History Severe protein-calorie malnutrition 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 Cellulitis and abscess of leg Laceration of forehead Fall Wears glasses Alcohol use Uses wheelchair Lupus Pulmonary embolism Stroke/cerebrovascular accident Seizures Non-smoker History of pain when walking History of edema History of stress test Hypertension Home Medications ?Medication ?Instructions ?Recorded ?Last Taken ?Type omega-3 fatty acids 500 mg capsule 1,000 mg PO TID sup plement 08/27/15 12/07/24 History (Fish Oil) baclofen 10 mg tablet 10 mg PO Q8H Muscle Spasm Unknown History niacin 50 mg tablet 25 mg PO DAILY Check with pr imary 04/14/22 Unknown History doctor phenytoin sodium extended 100 mg 200 mg PO DAILY Check with primary 04/14/22 07/07/22 06:15 History capsule (Dilantin Extended) doctor pregabalin 75 mg capsule (Lyrica) 150 mg PO TID pain c ontrol 04/14/22 12/07/24 History turmeric root extract 500 mg 1,000 mg PO DAILY supplem ent 04/14/22 12/07/24 History capsule coenzyme Q10 100 mg capsule 100 mg PO DAILY Check with primary 07/02/22 12/07/24 History (CoQ-10) doctor ergocalciferol (vitamin D2) 1,250 1,250 mcg PO WE [place] k with primary 07/02/22 12/01/24 History mcg (50,000 unit) capsule (Vitamin doctor D2) phenytoin sodium extended 100 mg 100 mg PO QHS Check w ith primary 07/02/22 Unknown History capsule (Dilantin Extended) doctor furosemide 20 mg tablet (Lasix) 60 mg PO LUNCH 2 Unknown History furosemide 40 mg tablet (Lasix) 60 mg PO BREAKFAST rabia er pill 07/05/22 12/07/24 History aspirin 81 mg chewable tablet 81 mg PO BREAKFAST #0 ta bs 12/08/22 12/07/24 Rx oxycodone 5 mg tablet 5 mg PO Q6H PRN PRN Pain Sco re 12/08/22 Unknown Rx 4-10 3 days #20 tabs clonidine HCl 0.1 mg tablet 0.1 mg PO Q12H 12/07/24 Un known History tramadol 50 mg tablet 50 mg PO Q8H pain 12/07/24 U nknown History warfarin 3 mg tablet 3 mg PO MOTUWETHFR 12/07/24 Unknown History warfarin 5 mg tablet 4 mg PO SUSA 12/07/24 Unknow n History Allergy/AdvReac Type Severity Reaction Status Date / Time duloxetine (From Cymbalta) Allergy Rash Verified 12/07/24 10:58 sulfamethoxazole (From Allergy Rash Verified 12/07/24 10:58 Bactrim) trimethoprim (From Bactrim) Allergy Rash Verified 12/07/24 10:58 ciprofloxacin (From Cipro) AdvReac PAIN IN Verified 12/07/24 10:58 FEET ciprofloxacin HCl (From AdvReac Rash Verified 12/07/24 10:58 Cipro) citalopram AdvReac SUICIDAL Verified 12/07/24 10:58 THOUGHTS gabapentin (From Neurontin) AdvReac EFFECTED Verified 12/07/24 10:58 VISION AND HEARING hydrochlorothiazide AdvReac DIZZINESS Verified 12/07/24 10:58 levetiracetam (From Keppra) AdvReac Other Verified 12/07/24 10:58 [id number] Reductase AdvReac Other Verified 12/07/24 10:58 Inhibitor Family History Father Colon cancer Hypertension Gastric ulcer Mother Heart disease Brother Diabetes Surgical History Hx of colonoscopy History of embolic filter insertion Social History household members: none Smoking Status: Never smoker alcohol intake: never substance use type: does not use ROS Constitutional Constitutional: Denies chills, fever(s), frequent falls, lethargy or weakness Eyes Eyes: Denies blind spots, change in vision or loss of vision ENT HEENT: Denies bleeding gums, hoarseness or sore throat Cardiovascular Cardiovascular: Reports edema, leg edema and leg ulcers; Denies abdominal pain, bluish discoloration of hand/feet, chest pain with activity, claudication, cold extremities, cyanosis, dyspnea on exertion, irregular heart rhythm, numbness in extremities or weakness in extremities Respiratory/Chest Respiratory/Chest: Denies cough, excessive phlegm production, shortness of breath at rest, shortness of breath with exertion or wheezing Gastrointestinal Gastrointestinal: Denies anorexia, change in stool character, constipation, diarrhea, melena or rectal bleeding Genitourinary Genitourinary: Denies dysuria or hematuria Musculoskeletal Musculoskeletal: Denies abnormal gait Integumentary Integumentary: Reports non-healing lesions and wounds Neurologic Neurologic: Denies abnormal speech, focal weakness, headache(s), loss of vision, numbness, paresthesias or sensory deficit Hematologic/Lymphatic Hematologic/Lymphatic: Denies easy bleeding, easy bruising or lymphadenopathy Physical Exam Const alert, oriented x3, no apparent distress and healthy appearing General Appearance: cooperative; Negative for combative or lethargic Orientation / Consciousness: awake Exam Limitations: no limitations HEENT Head and Scalp: normocephalic and atraumatic Eyes EOMs intact bilaterally General Eye: normal appearance of both eyes Neck full ROM General: trachea midline Resp normal respiratory effort and no use of accessory muscles Effort and Inspection: Negative for labored, stridor or audible wheezes Cardio regular rate and regular rhythm Peripheral Pulses: brachial pulses present, radial pulses present, popliteal pulses present, posterior tibial pulses present and dorsalis pedis pulses present Back/Spine Cervical Spine: cervical ROM normal Extremity full ROM, normal capillary refill and no clubbing, cyanosis or edema Neuro oriented x3, CN's II-XII intact bilaterally, no focal motor deficits and no sensory deficits noted Psych thought process normal, cooperative, affect normal, speech normal and activity/motor behavior normal Lab / Micro Data 12/10/24 06:12 12/10/24 06:12 Labs: Laboratory Results - last 24 hr 12/09/24 12:30: Vancomycin Trough 26.6 H 12/10/24 06:12: WBC 6.5, RBC 3.72 L, Hgb 11.3 L, Hct 35.2 L, MCV 94.6 H, MCH 30.4, MCHC 32.1, RDW Std Deviation 50.9 H, RDW Coeff of [place] 14.6, Plt Count 454 H, MPV 9.4, Immature Gran % (Auto) 0.900, Neut % (Auto) 58.0, Lymph % (Auto) 23.0, [place] % (Auto) 10.7 H, Eos % (Auto) 6.8 H, Baso % (Auto) 0.6, Absolute Neuts (auto) 3.8, Absolute Lymphs (auto) 1.49, Nucleated RBC % 0, PT 24.6 H, INR 2.2, Sodium 137, Potassium 3.6, Chloride Direct 103, Carbon Dioxide 25.0, Anion Gap 10, BUN 18, Creatinine 0.64 L, Estim Creat Clear Calc 107.27, Est GFR (MDRD) Non-Af 104, BUN/Creatinine Ratio 28.4 H, Glucose 95, Calcium 8.4, Random Vancomycin 12.2 Micro: Microbiology 12/07/24 14:30 Wound - Leg, Right Gram Stain - Final 12/07/24 14:30 Wound - Leg, Right Wound Culture - Final Providencia stuartii Enterococcus faecalis Clostridium cadaveris 12/07/24 14:30 Wound - Leg, Right Skin and Soft Tissue MRSA/MSSA (PCR - Final 12/07/24 10:59 Blood Culture (Wb) - Right Forearm Blood Culture - Preliminary No growth in 48 hours. 12/07/24 10:59 Blood Culture (Wb) - Anticubital Right Blood Culture - Preliminary No growth in 48 hours. Charges/Coding Visit Charges Inpatient E&M: 53594 Init Hosp L3
[2024-12-10 15:27] VITALS: BP 114/69; PULSE 60; RESP 16; TEMP 36.6; O2SAT 99
[2024-12-10] MEDS: Warfarin (BKC) 3 MG Tablet PO (16:53)
[2024-12-10] MEDS: Phenytoin Na 100 MG Capsule PO (23:34)
[2024-12-10 23:38] VITALS: BP 114/68; PULSE 70; RESP 16; TEMP 36.4; O2SAT 94
[2024-12-11] VITALS (8 sets, daily range): BP systolic 92–115; BP diastolic 55–94; PULSE 61–84; RESP 15–18; TEMP 36.3–36.8; O2SAT 92–97; BMI 46.2
[2024-12-11] MEDS: Piperacil/Tazobactam 3.375 GM in 0.9% Normal Saline (50mL MB+) 50 ML IV ×3 (05:20→22:36)
[2024-12-11] MEDS: Pregabalin 75 MG Capsule 150 MG PO ×3 (05:20→22:35)
[2024-12-11] MEDS: Nystatin Powder 15gm Bottle 1 APPLIC TOPICAL ×3 (05:21→23:37)
[2024-12-11] MEDS: Baclofen 10 MG Tablet PO ×3 (05:21→22:34)
[2024-12-11] MEDS: Acetaminophen 500 MG Tablet 1000 MG PO ×3 (05:22→22:35)
--- NOTE | 2024-12-11 06:19 | PCM.PN.SRG ---
Subjective Subjective Stable vitals and no fevers. Reports that he feels well overall. Patient talked with vascular and in agreement with plan. Objective Data Objective Data Vital Signs: Vital Signs Temp Pulse Resp BP Pulse Ox O2 Del Method 97.3 F L 73 16 109/75 93 Room Air 12/11/24 05:28 12/11/24 05:28 12/11/24 05:28 12/11/24 05:28 12/11/24 05:28 12/11/24 05:28 Oxygen Delivery Method Room Air Weight: 270 lb 11.642 oz Body Mass Index (BMI) 46.2 Intake & Output: Intake and Output for Last 24 Hours 12/09/24 12/10/24 12/11/24 23:59 23:59 23:59 Intake Total 3310 / 3310 1400 / 1600 450 / 450 Output Total 2500 / 3600 3600 / 4700 1950 / 1950 Balance 810 / -290 -2200 / -3100 -1500 / -1500 Lab / Micro Data 12/10/24 06:12 12/10/24 06:12 Labs: Laboratory Results - last 24 hr 12/10/24 06:12: WBC 6.5, RBC 3.72 L, Hgb 11.3 L, Hct 35.2 L, MCV 94.6 H, MCH 30.4, MCHC 32.1, RDW Std Deviation 50.9 H, RDW Coeff of [place] 14.6, Plt Count 454 H, MPV 9.4, Immature Gran % (Auto) 0.900, Neut % (Auto) 58.0, Lymph % (Auto) 23.0, [place] % (Auto) 10.7 H, Eos % (Auto) 6.8 H, Baso % (Auto) 0.6, Absolute Neuts (auto) 3.8, Absolute Lymphs (auto) 1.49, Nucleated RBC % 0, PT 24.6 H, INR 2.2, Sodium 137, Potassium 3.6, Chloride Direct 103, Carbon Dioxide 25.0, Anion Gap 10, BUN 18, Creatinine 0.64 L, Estim Creat Clear Calc 107.27, Est GFR (MDRD) Non-Af 104, BUN/Creatinine Ratio 28.4 H, Glucose 95, Calcium 8.4, Random Vancomycin 12.2 Micro: Microbiology 12/07/24 14:30 Wound - Leg, Right Gram Stain - Final 12/07/24 14:30 Wound - Leg, Right Wound Culture - Final Providencia stuartii Vancomycin Resist. E. faecalis Corynebacterium striatum 12/07/24 14:30 Wound - Leg, Right Skin and Soft Tissue MRSA/MSSA (PCR - Final 12/07/24 10:59 Blood Culture (Wb) - Right Forearm Blood Culture - Preliminary No growth in 48 hours. 12/07/24 10:59 Blood Culture (Wb) - Anticubital Right Blood Culture - Preliminary No growth in 48 hours. Physical Exam Narrative LOWER EXTREMITIES Inspection/Palpation. Lower extremities are pressure offloaded with padding and pillows, no pressure on Achilles or the heals and wounds. Dressings in place. No malodor or strike through. Improved swelling Vascular: His feet are warm with 2+ dorsalis pedis pulses bilaterally Sensation: Intact to light touch bilaterally. Motor: Able to plantarflex/dorsiflex feet bilaterally (5/5) Const alert, oriented x3 and no apparent distress General Appearance: cooperative and comfortable HEENT normocephalic and head/scalp atraumatic Lymph Lymphatic: lymphedema moderate Resp normal respiratory effort Effort and Inspection: able to speak in complete sentences Cardio regular rate and regular rhythm Extremity General Extremity: edema bilateral lower extremity Details: severe Skin General Skin Exam: venous stasis and dermatitis Wounds: wounds noted Psych mental status grossly normal, thought process normal, cooperative and affect normal Assessment & Plan Assessment/Plan (1) Venous ulcer of right lower extremity with varicose veins: (2) Venous ulcer of left lower extremity with varicose veins: (3) Edema: QUALIFIERS: Edema type: unspecified Qualified Code(s): R60.9 - Edema, unspecified (4) Venous insufficiency: (5) Cellulitis: PLAN: Plan Recommend offloading with pressure offloading bed and elevation of the legs with pressure offloading using pillows (no pressure on calf or Achilles/posterior leg). Agree with plan for diuresis for lower extremity swelling. Plan for gentle compression with Marcio wrap's as well. Agree with vascular surgery intervention to improve blood flow. Will defer operative debridement until improved wound healing potential or an emergency (abscess, ascending infection). Plastic surgery will continue to follow. Agree with broad-spectrum antibiotics for cellulitis. Recommend Dakins WTD BID at home or in a SNF. F/u later this week at the wound care center with Dr. Loco. Okay to continue Coumadin from plastic surgery standpoint Charges/Coding Visit Charges Inpatient E&M: 20639 Subs Hosp L1
[2024-12-11 07:12] LABS: Absolute Lymphocyte Count 1.26 X10^3/uL (0.83-4.51); Absolute Neutrophil Count 3.7 X10^3/uL (2.0-7.7); Basophil# 0.05 X10^3/uL; Basophil% 0.8 % (0-1); Eosinophil# 0.37 X10^3/uL; Eosinophils% 6.1 % (0-5); Hematocrit 34.5 % (40-54); Hemoglobin 11.3 g/dL (13.0-16.5); Lymphocyte # 1.26 X10^3/ul (0.83-4.51); Lymphocyte % 20.8 % (19-41); Mean Corp Hgb Conc 32.8 g/dL (32-36); Mean Corpuscular Hgb 30.9 pg (27.0-32.0); Mean Corpuscular Volume 94.3 fL (80-94); Mean Platelet Vol. 9.2 fl (6.2-12.0); Monocyte# 0.65 X10^3/uL; Monocyte% 10.7 % (0-10); NRBC Flagged by Analyzer 0 % (0-5); Neutrophil # 3.69 X10^3/uL (2.7-7.7); Neutrophil % 60.8 % (47-70); Platelet Count 489 K/mm3 (150-450); RBC Distribution Width CV 14.7 % (11.6-14.6); RBC Distribution Width SD 50.2 fl (35.1-43.9); Red Blood Count 3.66 M/mm3 (4.6-6.2); White Blood Count 6.1 K/mm3 (4.4-11.0)
[2024-12-11 07:25] LABS: International Normalized Ratio 1.9; Prothrombin Time (Protime)PT. 21.7 SECONDS (11.7-14.9)
[2024-12-11] MEDS: Vancomycin Trough/Random Due 1 LAB MC (07:30)
[2024-12-11] MEDS: cloNIDine HCl 0.1 MG Tablet PO (08:24)
[2024-12-11] MEDS: Aspirin 81 MG TAB.CHEW PO (08:24)
[2024-12-11] MEDS: Phenytoin Na 100 MG Capsule 200 MG PO (08:24)
[2024-12-11] MEDS: Furosemide 20 MG Tablet 60 MG PO ×2 (08:24→11:31)
[2024-12-11] MEDS: traMADol 50 MG Tablet PO (08:25)
[2024-12-11 08:55] LABS: Vancomycin, Trough Level 17.9 ug/mL (5.0-15.0)
--- NOTE | 2024-12-11 09:15 | PCM.RX.CS ---
Consult Antibiotic Management Pharmacy has been consulted to manage selected antibiotic: Vancomycin Type of Intervention Type of Consult: Follow-up Suspected Infection Suspected Infection: Skin/Soft tissue Prior Doses of Antibiotics Prior Doses of Antibiotics Received/Current Regimen: Vancomycin 1000 mg IV Q8H, last dose given 12/10 @ 7474 Labs Labs: Vancomycin Trough 17.9 ug/mL (5.0-15.0) H 12/11/24 06:19 Random Vancomycin 12.2 ug/mL (0.0-15.0) 12/10/24 06:12 Microbiology Microbiology: Microbiology 12/07/24 14:30 Wound - Leg, Right Gram Stain - Final 12/07/24 14:30 Wound - Leg, Right Wound Culture - Final Providencia stuartii Vancomycin Resist. E. faecalis Corynebacterium striatum 12/07/24 14:30 Wound - Leg, Right Skin and Soft Tissue MRSA/MSSA (PCR - Final 12/07/24 10:59 Blood Culture (Wb) - Right Forearm Blood Culture - Preliminary No growth in 48 hours. 12/07/24 10:59 Blood Culture (Wb) - Anticubital Right Blood Culture - Preliminary No growth in 48 hours. Dosing Weight Weight used for dosin kg Estimated Creatinine Clearance Estimated Creatinine Clearance: ~ 107 Goal Trough Goal Trough: 15-20 mcg/mL Pharmacy Plan for Drug Dosing Pharmacy Plan for Drug Dosing: Vancomycin trough = 17.9, continue current dosing Pharmacy Service will continue to monitor and adjust dosing as required. Follow-Up Labs Follow-Up Labs: Trough: Vancomycin Date/Time Labs Ordered Labs to be done on [date and time ordered]: 12/12 @ 1284
[2024-12-11] MEDS: DAKIN'S SOL HALF STRENGTH (=0.25%) TOPICAL ×2 (09:20→23:37)
[2024-12-11] MEDS: 0.9% Saline Lock 10 ML Syringe IV (09:22)
[2024-12-11] MEDS: Vancomycin IV 1,000 MG/200 ML BAG 200 MG IV (09:22)
[2024-12-11 09:55] LABS: Anion Gap 11 (5-15); BUN 18 mg/dL (4-19); BUN/Creat Ratio 29.5 RATIO (10-20); Calcium,Total 8.5 mg/dL (7.6-11.0); Carbon Dioxide 24.7 mmol/L (21.0-32.0); Chloride 103 mmol/L (98-108); Creatinine, Serum 0.62 mg/dL (0.70-1.20); EST Glomerular Filtration Rate 105 (>60); Estimated Creatinine Clearance 107.32 ml/min (50-250); Glucose 92 mg/dL (70-99); Potassium 3.7 mmol/L (3.3-5.1); Sodium Level 139 mmol/L (133-145)
--- NOTE | 2024-12-11 11:30 | WOUNDNOTE ---
wound photo: right medial lower leg
[2024-12-11] MEDS: oxyCODONE 5 MG Tablet PO (11:32)
--- NOTE | 2024-12-11 11:32 | WOUNDNOTE ---
wound photo: right lateral lower leg
--- NOTE | 2024-12-11 11:33 | WOUNDNOTE ---
wound photo: left medial lower leg
--- NOTE | 2024-12-11 11:34 | WOUNDNOTE ---
wound photo: left lateral lower leg
--- NOTE | 2024-12-11 14:14 | DS.PCM_ITS ---
Providers Date of Admission: 12/07/24 Date of Discharge: 12/11/24 Primary Care Physician: Dr. Patricia Garcia, Consultations 12/07/24 14:04 Consult: Onc/Wound/care aid Routine Comment: Consult: Plastic Surgery Routine Consulting Provider: Lenin Foss Reason for Consult: B LE wounds EMERGENT Consult: No MD Notified: Yes Date Notified: 12/07/24 Time Notified: 12:56 Method of Notification: Verbal 12/09/24 13:39 Consult: Vascular Surgery Routine Consulting Provider: Wei Allison Reason for Consult: Lower extremity venous insufficiency EMERGENT Consult: No Notified: Yes Date Notified: 12/10/24 Time Notified: 08:15 Method of Notification: Answering Service 12/11/24 12:09 Consult: Infectious Disease Routine Consulting Provider: Lenin Blackburn Reason for Consult: VRE bacteremia EMERGENT Consult: No Notified: Yes Date Notified: 12/11/24 Time Notified: 12:09 Method of Notification: Verbal Reason For Visit: B LE WOUNDS Diagnosis Discharge Diagnosis (1) Venous ulcer of right lower extremity with varicose veins: Status: Acute Code(s): I83.019 - Varicose veins of right lower extremity with ulcer of unspecified site; L97.919 - Non-pressure chronic ulcer of unspecified part of right lower leg with unspecified severity (2) Venous ulcer of left lower extremity with varicose veins: Status: Chronic Code(s): I83.029 - Varicose veins of left lower extremity with ulcer of unspecified site (3) Edema: Status: Chronic Code(s): R60.9 - Edema, unspecified Qualifiers: Edema type: unspecified Qualified Code(s): R60.9 - Edema, unspecified (4) Venous insufficiency: Status: Chronic Code(s): I87.2 - Venous insufficiency (chronic) (peripheral) (5) Cellulitis: Status: Acute Code(s): L03.90 - Cellulitis, unspecified Plan #Acute on chronic bilateral lower extremity wounds and cellulitis * On IV vancomycin and Zosyn. * Plastic surgery consulted and recommended wet-to-dry Dakin's dressings twice daily as well as pressure offloading and elevation of legs. * Had had recent ABIs which showed no evidence of occlusion and also had venous ultrasound which showed no evidence of blood clots. * CT of the lower extremities done however showed obstruction of the infrarenal IVC and pelvic and abdominal venous collaterals with multisegmental moderate arterial sclerosis in the bilateral tibial vessels with runoff to the feet and distended gallbladder with cholelithiasis as well as prostatomegaly and right suprapatellar joint effusion. * Vascular surgery consulted. Await recs. * On Lasix 60 mg twice daily for lower extremity edema #History of pulmonary embolism: On Coumadin. INR is therapeutic #History of seizure disorder: On Dilantin. #Benign essential hypertension: On clonidine #Hyperlipidemia: Not on statins due to history of intolerance #History of chronic pain syndrome: On oxycodone as needed as well as Lyrica #BPH: * CT abdomen pelvis with runoff showed prostatomegaly. * Currently not having any obstructive symptoms. * To follow-up with urology on outpatient basis. #Asymptomatic cholelithiasis: * CT of the abdomen and pelvis with runoff showed distended gallbladder with cholelithiasis. * Currently asymptomatic. Follow-up with PCP on outpatient basis. * #Class III obesity: BMI is 46.5. Complicates acute care, expected recovery and prognosis. #DVT prophylaxis: Already on Coumadin. INR is therapeutic at 2.2 today. Medications at Discharge Home Medications omega-3 fatty acids 500 mg capsule (Fish Oil) 1,000 mg PO TID supplement 08/27/15 baclofen 10 mg tablet 10 mg PO Q8H Muscle Spasm 04/14/22 niacin 50 mg tablet 25 mg PO DAILY Check with primary doctor 04/14/22 phenytoin sodium extended 100 mg capsule (Dilantin Extended) 200 mg PO DAILY Check with primary doctor 04/14/22 pregabalin 75 mg capsule (Lyrica) 150 mg PO TID pain control 04/14/22 turmeric root extract 500 mg capsule 1,000 mg PO DAILY supplement 04/14/22 coenzyme Q10 100 mg capsule (CoQ-10) 100 mg PO DAILY Check with primary doctor 07/02/22 ergocalciferol (vitamin D2) 1,250 mcg (50,000 unit) capsule (Vitamin D2) 1,250 mcg PO WE Check with primary doctor 07/02/22 phenytoin sodium extended 100 mg capsule (Dilantin Extended) 100 mg PO QHS Check with primary doctor 07/02/22 aspirin 81 mg chewable tablet 81 mg PO BREAKFAST #0 tabs 12/08/22 oxycodone 5 mg tablet 5 mg PO Q6H PRN PRN Pain Score 4-10 3 days #20 tabs 12/08/22 tramadol 50 mg tablet 50 mg PO Q8H pain 12/07/24 warfarin 3 mg tablet 3 mg PO MOTUWETHFR 12/07/24 warfarin 5 mg tablet 4 mg PO SUSA 12/07/24 amoxicillin 875 mg-potassium clavulanate 125 mg tablet 1 tab PO BID 14 days #28 tabs 12/11/24 furosemide 20 mg tablet 20 mg PO DAILY #30 tabs 12/11/24 Hospital Course Operations None Procedures Angiogram Summary of Care Provided Minutes Spent on Discharge: 55 Hospital Course: Patient is a 69-year-old male with a past medical history as outlined was admitted through the ED on 12/07/2024 with complaint of bilateral lower extremity wounds. He did have a history of chronic lower extremity ulcers for which she had been following up at wound care. He had received antibiotics recently but symptoms are not improved so he came into the ED. He said he had had recent venous studies which showed patent veins bilaterally but had valvular incompetence noted. On admission hemoglobin was 12.7 and WBC was not elevated. Chemistries were unremarkable. He was started on broad-spectrum antibiotics on account of concerns for cellulitis of the lower extremities in the setting of chronic venous stasis ulcers. Vascular surgery was consulted. Wound care was also consulted. Vascular surgery recommended Dakin's wet-to-dry dressings twice daily to the lower extremities and pressure offloading and elevation of the legs using pillows. Patient was also to have gentle compression with Marcio wrap's. Vascular surgery was also consulted. He was initially placed on IV vancomycin and Zosyn. CTA of the lower extremities showed obstruction of the infrarenal IVC and pelvic and abdominal venous collaterals with multisegmental moderate arterial sclerosis in the bilateral tibial vessels with runoff to the feet and distended gallbladder with cholelithiasis as well as prostatomegaly and right suprapatellar joint effusion. Vascular surgery reviewed patient and recommended that patient would benefit from venogram from popliteal access to assess potential inflow quality and this could be done on outpatient basis. Of note the prior duplex had revealed extensive chronic DVT of the bilateral lower extremities and patient had an IVC filter in place. Patient was counseled that he would need outpatient attempt to recanalize his IVC and iliac veins. He was agreeable to follow-up with vascular surgery on outpatient basis. Wound cultures grew vancomycin-resistant Enterococcus faecalis, Providencia stuartii and corynebacterium stratum. This was sensitive to ampicillin so patient was discharged on p.o. Augmentin for 2-week course. Of note, although the Providentia stuartii was resistant to ampicillin, it was sensitive to ampicillin sulbactam. I did clarify with clinical pharmacy if Augmentin would cover this and they confirmed that it would be covered by Augmentin. He is to follow-up with his primary care doctor and with vascular surgery as well as plastic surgery within 1 to 2 weeks. Of note patient's blood pressure also been running low with systolic being in the 90s. He was asymptomatic. Patient's p.o. lasix 60 mg daily was discontinued as well as his p.o. clonidine. He was placed on p.o. Lasix 20 mg daily. Patient seen and examined prior to discharge. He had no active complaints and had an uneventful night. He was amenable to discharge. Review of symptoms otherwise negative. Labs and vitals reviewed. Home medication reviewed and reconciled. Physical Exam Const alert, oriented x3, no apparent distress, average body habitus and well nourished Constitutional Narrative: Class III obesity. General Appearance: cooperative and comfortable Orientation / Consciousness: awake HEENT normocephalic, head/scalp atraumatic, hearing grossly normal bilaterally and moist oral mucous membranes Mouth: oral and palatal mucosa normal Eyes PERRL, EOMs intact bilaterally and conjunctivae normal Neck no lymphadenopathy and supple Lymph Lymphatic: no lymphadenopathy noted and no lymphedema noted Resp normal respiratory effort, no retractions, no use of accessory muscles and clear to auscultation bilaterally Cardio regular rate, regular rhythm, S1 normal heart sound, S2 normal heart sound and no murmurs GI normal to inspection, nondistended, normoactive bowel sounds, soft to palpation, non-tender and non-distended Extremity normal capillary refill Extremity Narrative: mild LE bipedal edema, superficial ulcerations above medial malleolus General Extremity: no tenderness to palpation of joints or extremities Skin Skin Narrative: as under extremities. Neuro oriented x3, CN's II-XII intact bilaterally, moves all extremities, no focal motor deficits and no sensory deficits noted Speech: speech normal Motor Exam: strength 5/5 throughout and general weakness Psych thought process normal, cooperative and affect normal Appearance: appropriate Weight / BMI Weight Weight: 270 lb 15.17 oz Body Mass Index (BMI) 46.2 ABG / Lab / Microbiology Data 12/11/24 06:19 12/11/24 06:19 Laboratory: Laboratory Results - last 24 hr 12/11/24 06:19: WBC 6.1, RBC 3.66 L, Hgb 11.3 L, Hct 34.5 L, MCV 94.3 H, MCH 30.9, MCHC 32.8, RDW Std Deviation 50.2 H, RDW Coeff of [place] 14.7 H, Plt Count 489 H, MPV 9.2, Immature Gran % (Auto) 0.800, Neut % (Auto) 60.8, Lymph % (Auto) 20.8, [place] % (Auto) 10.7 H, Eos % (Auto) 6.1 H, Baso % (Auto) 0.8, Absolute Neuts (auto) 3.7, Absolute Lymphs (auto) 1.26, Nucleated RBC % 0, PT 21.7 H, INR 1.9, Sodium 139, Potassium 3.7, Chloride 103, Carbon Dioxide 24.7, Anion Gap 11, BUN 18, Creatinine 0.62 L, Estim Creat Clear Calc 107.32, Est GFR (MDRD) Non-Af 105, BUN/Creatinine Ratio 29.5 H, Glucose 92, Calcium 8.5, Vancomycin Trough 17.9 H Microbiology: Microbiology 12/07/24 14:30 Wound - Leg, Right Gram Stain - Final 12/07/24 14:30 Wound - Leg, Right Wound Culture - Final Providencia stuartii Vancomycin Resist. E. faecalis Corynebacterium striatum 12/07/24 14:30 Wound - Leg, Right Skin and Soft Tissue MRSA/MSSA (PCR - Final 12/07/24 10:59 Blood Culture (Wb) - Right Forearm Blood Culture - Preliminary No growth in 48 hours. 12/07/24 10:59 Blood Culture (Wb) - Anticubital Right Blood Culture - Preliminary No growth in 48 hours. D/C Instructions Discharge Diet: Low fat / Low cholesterol Discharge Activity: Return to Normal Activity Weight Bearing Status: Weight bearing as tolerated Call your doctor if you observe: Fever of 101 or Higher, Shortness of breath, Dizziness, Swelling in the ankles and Chest pain DC O2, CPAP, BIPAP Needs Home O2 Discharge instructions: No DC home with Oxygen: No Meaningful Use Info Meaningful Use Meaningful Use Diagnoses (Choose all that apply): None applicable Ischemic Stroke Statin Dosing Therapy Reference: STATIN DOSE THERAPY REFERENCE: * Patients > 75 years receive moderate or high dose statin therapy. * Patients 75 years or YOUNGER should receive HIGH intensity statin dose unless contraindicated. You will be required to document reason for non-treatment if statin daily dose does not meet guidelines. HIGH DOSE STATIN THERAPY DAILY Atorvastatin > than or = to 40 mg Rosuvastatin > than or = to 20 mg Amlodipine + Atorvastatin > than or = to 2.5/40 mg Ezetimibe + Simvastatin 10/80 mg Simvastatin 80mg Discharge Plan Admission Admit Date/Time: 12/07/24 12:53 Primary Reason for Your Visit: lower extremity venous stasis ulcers with cellulitis Attending Provider: Eliane Benson Primary Care Provider: Patricia Garcia Consulting Providers: Lenin Foss; Inocencia Kruger; Esme Rivera; Wei Allison; Lenin Blackburn Instructions Patient Instructions: ED Venous Leg Ulcer Discharge Orders/Prescriptions Prescriptions: New amoxicillin-pot clavulanate 875-125 mg tablet 1 tab PO BID 14 Days Qty: 28 0RF furosemide 20 mg tablet 20 mg PO DAILY Qty: 30 2RF Continued phenytoin sodium extended [Dilantin Extended] 100 mg capsule 200 mg PO DAILY niacin 50 mg tablet 25 mg PO DAILY Fish Oil 500 MG capsule 1,000 mg PO TID turmeric root extract 500 mg capsule 1,000 mg PO DAILY baclofen 10 mg tablet 10 mg PO Q8H pregabalin [Lyrica] 75 mg capsule 150 mg PO TID phenytoin sodium extended [Dilantin Extended] 100 mg Capsule 100 mg PO QHS ergocalciferol (vitamin D2) [Vitamin D2] 1,250 mcg (50,000 unit) Capsule 1,250 mcg PO WE coenzyme Q10 [CoQ-10] 100 mg Capsule 100 mg PO DAILY aspirin 81 mg Tablet,Chewable 81 mg PO BREAKFAST Qty: 0 0RF oxycodone 5 mg Tablet 5 mg PO Q6H PRN PRN (Reason: Pain Score 4-10) 3 Days Qty: 20 0RF warfarin 3 mg tablet 3 mg PO MOTUWETHFR tramadol 50 mg tablet 50 mg PO Q8H Rx Instructions: takes meds 06,14,22, then also at 2am warfarin 5 mg tablet 4 mg PO SUSA Discontinued furosemide [Lasix] 40 mg Tablet 60 mg PO BREAKFAST furosemide [Lasix] 20 mg Tablet 60 mg PO LUNCH clonidine HCl 0.1 mg tablet 0.1 mg PO Q12H Referrals / Follow Up: Wei Allison MD [Med Staff - Active Staff] - Within 2 Weeks Patricia Garcia DO [Primary Care Provider] - Within 1 Week Lenin Blackburn MD [Med Staff - Active Staff] - Lenin Foss MD [Med Staff - Active Staff] - Within 1 Week Disposition Disposition (needs filled in before D/C Order can be placed): NonSkilled NH/Intermed Care Charges/Coding Visit Charges Inpatient E&M: 10257 Disch Hosp >30min
--- NOTE | 2024-12-11 14:14 | DCINST_ITS ---
Discharge Instructions Diet Discharge Diet: Low fat / Low cholesterol DC O2, CPAP, BIPAP needs Home O2 Discharge instructions: No Dressing / Incision Weight Bearing Status: Weight bearing as tolerated Dressing / Incision Call your doctor if you observe: Fever of 101 or Higher, Shortness of breath, Dizziness, Swelling in the ankles and Chest pain Follow Up Care Test Results: Test results from this visit will be discussed in further detail at your follow- up appointment, if applicable. Discharge Plan Admission Admit Date/Time: 12/07/24 12:53 Primary Reason for Your Visit: lower extremity venous stasis ulcers with cellulitis Attending Provider: Eliane Benson Primary Care Provider: Patricia Garcia Consulting Providers: Lenin Foss; Inocencia Kruger; Esme Rivera; Wei Allison; Lenin Blackburn Instructions Patient Instructions: ED Venous Leg Ulcer Discharge Orders/Prescriptions Prescriptions: New amoxicillin-pot clavulanate 875-125 mg tablet 1 tab PO BID 14 Days Qty: 28 0RF Continued phenytoin sodium extended [Dilantin Extended] 100 mg capsule 200 mg PO DAILY niacin 50 mg tablet 25 mg PO DAILY Fish Oil 500 MG capsule 1,000 mg PO TID turmeric root extract 500 mg capsule 1,000 mg PO DAILY baclofen 10 mg tablet 10 mg PO Q8H pregabalin [Lyrica] 75 mg capsule 150 mg PO TID phenytoin sodium extended [Dilantin Extended] 100 mg Capsule 100 mg PO QHS ergocalciferol (vitamin D2) [Vitamin D2] 1,250 mcg (50,000 unit) Capsule 1,250 mcg PO WE coenzyme Q10 [CoQ-10] 100 mg Capsule 100 mg PO DAILY furosemide [Lasix] 40 mg Tablet 60 mg PO BREAKFAST furosemide [Lasix] 20 mg Tablet 60 mg PO LUNCH aspirin 81 mg Tablet,Chewable 81 mg PO BREAKFAST Qty: 0 0RF oxycodone 5 mg Tablet 5 mg PO Q6H PRN PRN (Reason: Pain Score 4-10) 3 Days Qty: 20 0RF warfarin 3 mg tablet 3 mg PO MOTUWETHFR tramadol 50 mg tablet 50 mg PO Q8H Rx Instructions: takes meds 06,14,22, then also at 2am clonidine HCl 0.1 mg tablet 0.1 mg PO Q12H warfarin 5 mg tablet 4 mg PO SUSA Referrals / Follow Up: Wei Allison MD [Med Staff - Active Staff] - Within 2 Weeks Patricia Garcia DO [Primary Care Provider] - Within 1 Week Lenin Blackburn MD [Med Staff - Active Staff] - Lenin Foss MD [Med Staff - Active Staff] - Within 1 Week Disposition Disposition (needs filled in before D/C Order can be placed): NonSkilled NH/Intermed Care
--- NOTE | 2024-12-11 14:45 | CHAPLAIN ---
Type of Pastoral Visit _x__ Initial Visit ___ Follow-up Visit ___ On-call Visit ___ General Patient Visit ___ Spiritual Assessment ___ Family Conference ___ Bereavement ___ Rapid Response ___ Code Blue ___ Other (describe below) Pastoral Care Referral From _x__ Patient ___ Family ___ Nurse ___ Physician ___ Guest Services Representative ___ Back Joiner ___ Other (describe below) Sacrament/Intervention _x__ Active listening ___ Anointing ___ Samaritan ___ Bereavement ___ Communion _x__ Nneka exploration ___ _x__ Life review _x__ Prayer ___ Reconciliation ___ Sacrament of Sick ___ Supportive presence ___ Wedding ___ Other (describe below) Pastoral Comments patient is welcoming and talkative; pt has had a life long relationship with his local confucianist and finds comfort there; pt shares some life review and that reveals some common experiences that bring relationship to this wire setter; pt welcomes presence and prayers
[2024-12-11] MEDS: Warfarin (BKC) 3 MG Tablet PO (17:55)
--- NOTE | 2024-12-11 19:42 | PN_ITS ---
Subjective Subjective Patient seen and examined. He felt well and had no active complaints and had an uneventful night. Plan was for him to be discharged today, but patient subsequently became dizzy just prior to him being discharged. Discharge therefore canceled and patient being hydrated with IVF. Objective Data Objective Data Vital Signs: Vital Signs Temp Pulse Resp BP Pulse Ox O2 Del Method 98.1 F 76 15 92/66 94 Room Air 12/11/24 19:38 12/11/24 19:38 12/11/24 19:38 12/11/24 19:38 12/11/24 19:38 12/11/24 19:38 Oxygen Delivery Method Room Air Weight: 270 lb 15.17 oz Body Mass Index (BMI) 46.2 Intake & Output: Intake and Output for Last 24 Hours 12/09/24 12/10/24 12/11/24 23:59 23:59 23:59 Intake Total 3310 / 3310 1400 / 1600 750 / 750 Output Total 2500 / 3600 3600 / 4700 3450 / 3450 Balance 810 / -290 -2200 / -3100 -2700 / -2700 Lab / Micro Data 12/11/24 06:19 12/11/24 06:19 Labs: Laboratory Results - last 24 hr 12/11/24 06:19: WBC 6.1, RBC 3.66 L, Hgb 11.3 L, Hct 34.5 L, MCV 94.3 H, MCH 30.9, MCHC 32.8, RDW Std Deviation 50.2 H, RDW Coeff of [place] 14.7 H, Plt Count 489 H, MPV 9.2, Immature Gran % (Auto) 0.800, Neut % (Auto) 60.8, Lymph % (Auto) 20.8, [place] % (Auto) 10.7 H, Eos % (Auto) 6.1 H, Baso % (Auto) 0.8, Absolute Neuts (auto) 3.7, Absolute Lymphs (auto) 1.26, Nucleated RBC % 0, PT 21.7 H, INR 1.9, Sodium 139, Potassium 3.7, Chloride 103, Carbon Dioxide 24.7, Anion Gap 11, BUN 18, Creatinine 0.62 L, Estim Creat Clear Calc 107.32, Est GFR (MDRD) Non-Af 105, BUN/Creatinine Ratio 29.5 H, Glucose 92, Calcium 8.5, Vancomycin Trough 17.9 H Micro: Microbiology 12/07/24 14:30 Wound - Leg, Right Gram Stain - Final 12/07/24 14:30 Wound - Leg, Right Wound Culture - Final Providencia stuartii Vancomycin Resist. E. faecalis Corynebacterium striatum 12/07/24 14:30 Wound - Leg, Right Skin and Soft Tissue MRSA/MSSA (PCR - Final 12/07/24 10:59 Blood Culture (Wb) - Right Forearm Blood Culture - Preliminary No growth in 48 hours. 12/07/24 10:59 Blood Culture (Wb) - Anticubital Right Blood Culture - Preliminary No growth in 48 hours. Physical Exam Const alert, oriented x3, no apparent distress and average body habitus Constitutional Narrative: Class III obesity. General Appearance: cooperative and comfortable Orientation / Consciousness: awake HEENT normocephalic, head/scalp atraumatic, hearing grossly normal bilaterally and moist oral mucous membranes Eyes PERRL, EOMs intact bilaterally and conjunctivae normal Eyes Narrative: No scleral icterus Neck no lymphadenopathy and supple Lymph Lymphatic: no lymphadenopathy noted and no lymphedema noted Resp normal respiratory effort Resp Narrative: mildly diminished breath sounds bibasally, no wheezes or crackles. On room air. Cardio regular rate, regular rhythm, S1 normal heart sound, S2 normal heart sound and no murmurs GI normal to inspection, nondistended, normoactive bowel sounds, soft to palpation, non-tender and non-distended Extremity normal capillary refill Extremity Narrative: mild LE bipedal edema, superficial ulcerations above medial malleolus. Both LEs wrapped in bandage. General Extremity: no tenderness to palpation of joints or extremities Skin Skin Narrative: as under extremities. Neuro oriented x3, CN's II-XII intact bilaterally, moves all extremities, no focal motor deficits and no sensory deficits noted Speech: speech normal Motor Exam: strength 5/5 throughout and general weakness Psych thought process normal, cooperative and affect normal Psych Narrative: Very pleasant, interacts appropriately Appearance: appropriate Assessment & Plan Assessment/Plan (1) Venous ulcer of right lower extremity with varicose veins: (2) Venous ulcer of left lower extremity with varicose veins: (3) Edema: QUALIFIERS: Edema type: unspecified Qualified Code(s): R60.9 - Edema, unspecified (4) Venous insufficiency: (5) Cellulitis: PLAN: Plan #Acute on chronic bilateral lower extremity wounds and cellulitis * On IV vancomycin and Zosyn. * Plastic surgery consulted and recommended wet-to-dry Dakin's dressings twice daily as well as pressure offloading and elevation of legs. * Had had recent ABIs which showed no evidence of occlusion and also had venous ultrasound which showed no evidence of blood clots. * CT of the lower extremities done however showed obstruction of the infrarenal IVC and pelvic and abdominal venous collaterals with multisegmental moderate arterial sclerosis in the bilateral tibial vessels with runoff to the feet and distended gallbladder with cholelithiasis as well as prostatomegaly and right suprapatellar joint effusion. * Vascular surgery on board; reviewed patient yesterday and recommended patient to have attempt at recanalization and this is to be done on outpatient basis. * On Lasix 60 mg twice daily for lower extremity edema; lasix dc'd due to hypotension. #Hypotension * patient became dizzy and lightheaded just prior to discharge. * His BP had been running on the lower side of normal, with systolic in the low 100s. * will dc clonidine and lasix and hydrate with IVF NS @ 100cc/hr * #History of pulmonary embolism: On Coumadin. INR is therapeutic #History of seizure disorder: On Dilantin. #Benign essential hypertension: On clonidine; dc'd due to hypotension #Hyperlipidemia: Not on statins due to history of intolerance #History of chronic pain syndrome: On oxycodone as needed as well as Lyrica #BPH: * CT abdomen pelvis with runoff showed prostatomegaly. * Currently not having any obstructive symptoms. * To follow-up with urology on outpatient basis. #Asymptomatic cholelithiasis: * CT of the abdomen and pelvis with runoff showed distended gallbladder with cholelithiasis. * Currently asymptomatic. Follow-up with PCP on outpatient basis. * #Class III obesity: BMI is 46.5. Complicates acute care, expected recovery and prognosis. #DVT prophylaxis: Already on Coumadin. INR is therapeutic at 2.2 today. Charges/Coding Visit Charges Inpatient E&M: 52343 Subs Hosp L2
[2024-12-11] MEDS: 0.9% Normal Saline (1000mL) 1,000 ML 100 ML IV (19:49)
[2024-12-11] MEDS: Phenytoin Na 100 MG Capsule PO (22:36)
[2024-12-12] MEDS: oxyCODONE 5 MG Tablet PO (00:54)
[2024-12-12 04:00] VITALS: BP 114/70; PULSE 71; RESP 15; TEMP 36.4; O2SAT 93
[2024-12-12 05:43] VITALS: BMI 45.0
[2024-12-12] MEDS: Piperacil/Tazobactam 3.375 GM in 0.9% Normal Saline (50mL MB+) 50 ML IV ×2 (05:58→14:49)
[2024-12-12] MEDS: Nystatin Powder 15gm Bottle 1 APPLIC TOPICAL ×2 (06:00→14:48)
[2024-12-12 06:53] LABS: Absolute Lymphocyte Count 1.24 X10^3/uL (0.83-4.51); Absolute Neutrophil Count 3.9 X10^3/uL (2.0-7.7); Basophil# 0.04 X10^3/uL; Basophil% 0.6 % (0-1); Eosinophil# 0.27 X10^3/uL; Eosinophils% 4.4 % (0-5); Hematocrit 33.8 % (40-54); Hemoglobin 11.1 g/dL (13.0-16.5); Lymphocyte # 1.24 X10^3/ul (0.83-4.51); Mean Corp Hgb Conc 32.8 g/dL (32-36); Mean Corpuscular Hgb 30.9 pg (27.0-32.0); Mean Corpuscular Volume 94.2 fL (80-94); Monocyte# 0.75 X10^3/uL; Monocyte% 12.1 % (0-10); NRBC Flagged by Analyzer 0 % (0-5); Neutrophil # 3.86 X10^3/uL (2.7-7.7); Neutrophil % 62.3 % (47-70); Platelet Count 464 K/mm3 (150-450); RBC Distribution Width CV 14.7 % (11.6-14.6); RBC Distribution Width SD 50.9 fl (35.1-43.9); Red Blood Count 3.59 M/mm3 (4.6-6.2); White Blood Count 6.2 K/mm3 (4.4-11.0)
[2024-12-12 07:03] LABS: International Normalized Ratio 1.8; Prothrombin Time (Protime)PT. 21.1 SECONDS (11.7-14.9)
[2024-12-12] MEDS: Baclofen 10 MG Tablet PO ×2 (07:07→14:48)
[2024-12-12] MEDS: Acetaminophen 500 MG Tablet 1000 MG PO ×2 (07:07→14:49)
[2024-12-12] MEDS: Pregabalin 75 MG Capsule 150 MG PO ×2 (07:09→14:48)
[2024-12-12 07:13] LABS: Anion Gap 10 (5-15); BUN 19 mg/dL (4-19); BUN/Creat Ratio 27.5 RATIO (10-20); Calcium,Total 8.5 mg/dL (7.6-11.0); Carbon Dioxide 24.7 mmol/L (21.0-32.0); Chloride 104 mmol/L (98-108); EST Glomerular Filtration Rate 101 (>60); Estimated Creatinine Clearance 105.65 ml/min (50-250); Glucose 101 mg/dL (70-99); Potassium 3.5 mmol/L (3.3-5.1); Sodium Level 139 mmol/L (133-145)
--- NOTE | 2024-12-12 08:35 | PN.SURG_ITS ---
Subjective Subjective Saw patient resting in bed this morning, drowsy but reports feeling okay. States he felt pretty good yesterday morning but later in the afternoon had a dizzy spell so was kept overnight. He reports stable swelling/discomfort in his legs. Objective Data Objective Data Vital Signs: Vital Signs Temp Pulse Resp BP Pulse Ox O2 Del Method 97.5 F L 71 15 114/70 93 Room Air 12/12/24 04:00 12/12/24 04:00 12/12/24 04:00 12/12/24 04:00 12/12/24 04:00 12/12/24 04:00 Oxygen Delivery Method Room Air Weight: 263 lb 10.766 oz Body Mass Index (BMI) 45.0 Intake & Output: Intake and Output for Last 24 Hours 12/10/24 12/11/24 12/12/24 23:59 23:59 23:59 Intake Total 1400 / 1600 750 / 850 1150 / 1150 Output Total 3600 / 4700 3450 / 3650 600 / 600 Balance -2200 / -3100 -2700 / -2800 550 / 550 Lab / Micro Data 12/12/24 06:10 12/12/24 06:10 Labs: Laboratory Results - last 24 hr 12/11/24 06:19: Sodium 139, Potassium 3.7, Chloride 103, Carbon Dioxide 24.7, Anion Gap 11, BUN 18, Creatinine 0.62 L, Estim Creat Clear Calc 107.32, Est GFR (MDRD) Non-Af 105, BUN/Creatinine Ratio 29.5 H, Glucose 92, Calcium 8.5, V ancomycin Trough 17.9 H 12/12/24 06:10: WBC 6.2, RBC 3.59 L, Hgb 11.1 L, Hct 33.8 L, MCV 94.2 H, MCH 30.9, MCHC 32.8, RDW Std Deviation 50.9 H, RDW Coeff of [place] 14.7 H, Plt Count 464 H, MPV 9.0, Immature Gran % (Auto) 0.600, Neut % (Auto) 62.3, Lymph % (Auto) 20.0, [place] % (Auto) 12.1 H, Eos % (Auto) 4.4, Baso % (Auto) 0.6, Absolute Neuts (auto) 3.9, Absolute Lymphs (auto) 1.24, Nucleated RBC % 0, PT 21.1 H, INR 1.8, Sodium 139, Potassium 3.5, Chloride 104, Carbon Dioxide 24.7, Anion Gap 10, BUN 19, Creatinine 0.70, Estim Creat Clear Calc 105.65, Est GFR (MDRD) Non-Af 101, B UN/Creatinine Ratio 27.5 H, Glucose 101 H, Calcium 8.5 Micro: Microbiology 12/07/24 14:30 Wound - Leg, Right Gram Stain - Final 12/07/24 14:30 Wound - Leg, Right Wound Culture - Final Providencia stuartii Vancomycin Resist. E. faecalis Corynebacterium striatum 12/07/24 14:30 Wound - Leg, Right Skin and Soft Tissue MRSA/MSSA (PCR - Final 12/07/24 10:59 Blood Culture (Wb) - Right Forearm Blood Culture - Preliminary No growth in 48 hours. 12/07/24 10:59 Blood Culture (Wb) - Anticubital Right Blood Culture - Preliminary No growth in 48 hours. Physical Exam Const alert, oriented x3 and no apparent distress General Appearance: cooperative and comfortable HEENT normocephalic, hearing grossly normal bilaterally and external ears normal Eyes General Eye: normal appearance of both eyes Resp normal respiratory effort, no retractions and no use of accessory muscles Effort and Inspection: able to speak in complete sentences; Negative for labored, grunting or stridor Extremity Extremity Narrative: Significant BLE edema 3+; wound dressings in place to the bilateral lower legs Neuro oriented x3, CN's II-XII intact bilaterally and moves all extremities Speech: speech normal Assessment & Plan Assessment/Plan (1) Acquired occlusion of inferior vena cava: PLAN: Plan for outpatient office follow-up and venogram. His questions and concerns were addressed, he is comfortable with plan from vascular standpoint. Charges/Coding Visit Charges Inpatient E&M: 26016 Subs Hosp L1
[2024-12-12 08:42] VITALS: BP 110/64; PULSE 69; RESP 15; TEMP 36.7; O2SAT 93
[2024-12-12] MEDS: 0.9% Normal Saline (1000mL) 1,000 ML 100 ML IV (08:55)
[2024-12-12] MEDS: Phenytoin Na 100 MG Capsule 200 MG PO (08:56)
[2024-12-12] MEDS: Aspirin 81 MG TAB.CHEW PO (08:56)
[2024-12-12] MEDS: traMADol 50 MG Tablet PO (08:57)
[2024-12-12] MEDS: Ergocalciferol 1.25 MG (50, 000 UNIT) Capsule PO (08:57)
[2024-12-12] MEDS: DAKIN'S SOL HALF STRENGTH (=0.25%) TOPICAL (10:20)
--- NOTE | 2024-12-12 12:01 | DCINST_ITS ---
Discharge Instructions Diet Discharge Diet: Low fat / Low cholesterol DC O2, CPAP, BIPAP needs Home O2 Discharge instructions: No Dressing / Incision Discharge Activity: Return to Normal Activity Weight Bearing Status: Weight bearing as tolerated Dressing / Incision Call your doctor if you observe: Fever of 101 or Higher, Shortness of breath, Dizziness, Swelling in the ankles and Chest pain Follow Up Care Test Results: Test results from this visit will be discussed in further detail at your follow- up appointment, if applicable. Discharge Plan Admission Admit Date/Time: 12/07/24 12:53 Primary Reason for Your Visit: lower extremity venous stasis ulcers with cellulitis Attending Provider: Eliane Benson Primary Care Provider: Patricia Garcia Consulting Providers: Lenin Foss; Inocencia Kruger; Esme Rivera; Wei Allison; Lenin Blackburn Instructions Patient Instructions: ED Venous Leg Ulcer Discharge Orders/Prescriptions Prescriptions: New furosemide 20 mg tablet 20 mg PO DAILY Qty: 30 2RF amoxicillin-pot clavulanate 875-125 mg tablet 1 tab PO BID Qty: 10 0RF Continued phenytoin sodium extended [Dilantin Extended] 100 mg capsule 200 mg PO DAILY niacin 50 mg tablet 25 mg PO DAILY Fish Oil 500 MG capsule 1,000 mg PO TID turmeric root extract 500 mg capsule 1,000 mg PO DAILY baclofen 10 mg tablet 10 mg PO Q8H pregabalin [Lyrica] 75 mg capsule 150 mg PO TID phenytoin sodium extended [Dilantin Extended] 100 mg Capsule 100 mg PO QHS ergocalciferol (vitamin D2) [Vitamin D2] 1,250 mcg (50,000 unit) Capsule 1,250 mcg PO WE coenzyme Q10 [CoQ-10] 100 mg Capsule 100 mg PO DAILY aspirin 81 mg Tablet,Chewable 81 mg PO BREAKFAST Qty: 0 0RF oxycodone 5 mg Tablet 5 mg PO Q6H PRN PRN (Reason: Pain Score 4-10) 3 Days Qty: 20 0RF warfarin 3 mg tablet 3 mg PO MOTUWETHFR tramadol 50 mg tablet 50 mg PO Q8H Rx Instructions: takes meds 06,14,22, then also at 2am warfarin 5 mg tablet 4 mg PO SUSA Discontinued furosemide [Lasix] 40 mg Tablet 60 mg PO BREAKFAST furosemide [Lasix] 20 mg Tablet 60 mg PO LUNCH clonidine HCl 0.1 mg tablet 0.1 mg PO Q12H Referrals / Follow Up: Wei Allison MD [Med Staff - Active Staff] - Within 2 Weeks Patricia Garcia DO [Primary Care Provider] - Within 1 Week Lenin Blackburn MD [Med Staff - Active Staff] - Lenin Foss MD [Med Staff - Active Staff] - Within 1 Week Disposition Disposition (needs filled in before D/C Order can be placed): NonSkilled NH/Intermed [facility]
--- NOTE | 2024-12-12 12:08 | DS.PCM_ITS ---
Providers Date of Admission: 12/07/24 Date of Discharge: 12/12/24 Primary Care Physician: Dr. 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 Routine Comment: Consult: Plastic Surgery Routine Consulting Provider: Lenin Foss Reason for Consult: B LE wounds EMERGENT Consult: No MD Notified: Yes Date Notified: 12/07/24 Time Notified: 12:56 Method of Notification: Verbal 12/09/24 13:39 Consult: Vascular Surgery Routine Consulting Provider: Wei Allison Reason for Consult: Lower extremity venous insufficiency EMERGENT Consult: No Notified: Yes Date Notified: 12/10/24 Time Notified: 08:15 Method of Notification: Answering Service 12/11/24 12:09 Consult: Infectious Disease Routine Consulting Provider: Lenin Blackburn Reason for Consult: VRE bacteremia EMERGENT Consult: No Notified: Yes Date Notified: 12/11/24 Time Notified: 12:09 Method of Notification: Verbal Reason For Visit: B LE WOUNDS Diagnosis Discharge Diagnosis (1) Acquired occlusion of inferior vena cava: Status: Acute Code(s): I82.220 - Acute embolism and thrombosis of inferior vena cava Plan #Acute on chronic bilateral lower extremity wounds and cellulitis * On IV vancomycin and Zosyn. * Plastic surgery consulted and recommended wet-to-dry Dakin's dressings twice daily as well as pressure offloading and elevation of legs. * Had had recent ABIs which showed no evidence of occlusion and also had venous ultrasound which showed no evidence of blood clots. * CT of the lower extremities done however showed obstruction of the infrarenal IVC and pelvic and abdominal venous collaterals with multisegmental moderate arterial sclerosis in the bilateral tibial vessels with runoff to the feet and distended gallbladder with cholelithiasis as well as prostatomegaly and right suprapatellar joint effusion. * Vascular surgery on board; reviewed patient yesterday and recommended patient to have attempt at recanalization and this is to be done on outpatient basis. * On Lasix 60 mg twice daily for lower extremity edema; lasix dc'd due to hypotension. #Hypotension * patient became dizzy and lightheaded just prior to discharge. * His BP had been running on the lower side of normal, with systolic in the low 100s. * will dc clonidine and lasix and hydrate with IVF NS @ 100cc/hr * #History of pulmonary embolism: On Coumadin. INR is therapeutic #History of seizure disorder: On Dilantin. #Benign essential hypertension: On clonidine; dc'd due to hypotension #Hyperlipidemia: Not on statins due to history of intolerance #History of chronic pain syndrome: On oxycodone as needed as well as Lyrica #BPH: * CT abdomen pelvis with runoff showed prostatomegaly. * Currently not having any obstructive symptoms. * To follow-up with urology on outpatient basis. #Asymptomatic cholelithiasis: * CT of the abdomen and pelvis with runoff showed distended gallbladder with cholelithiasis. * Currently asymptomatic. Follow-up with PCP on outpatient basis. * #Class III obesity: BMI is 46.5. Complicates acute care, expected recovery and prognosis. #DVT prophylaxis: Already on Coumadin. INR is therapeutic at 2.2 today. Medications at Discharge Home Medications omega-3 fatty acids 500 mg capsule (Fish Oil) 1,000 mg PO TID supplement 08/27/15 baclofen 10 mg tablet 10 mg PO Q8H Muscle Spasm 04/14/22 niacin 50 mg tablet 25 mg PO DAILY Check with primary doctor 04/14/22 phenytoin sodium extended 100 mg capsule (Dilantin Extended) 200 mg PO DAILY Check with primary doctor 04/14/22 pregabalin 75 mg capsule (Lyrica) 150 mg PO TID pain control 04/14/22 turmeric root extract 500 mg capsule 1,000 mg PO DAILY supplement 04/14/22 coenzyme Q10 100 mg capsule (CoQ-10) 100 mg PO DAILY Check with primary doctor 07/02/22 ergocalciferol (vitamin D2) 1,250 mcg (50,000 unit) capsule (Vitamin D2) 1,250 mcg PO WE Check with primary doctor 07/02/22 phenytoin sodium extended 100 mg capsule (Dilantin Extended) 100 mg PO QHS Check with primary doctor 07/02/22 aspirin 81 mg chewable tablet 81 mg PO BREAKFAST #0 tabs 12/08/22 oxycodone 5 mg tablet 5 mg PO Q6H PRN PRN Pain Score 4-10 3 days #20 tabs 12/08/22 tramadol 50 mg tablet 50 mg PO Q8H pain 12/07/24 warfarin 3 mg tablet 3 mg PO MOTUWETHFR 12/07/24 warfarin 5 mg tablet 4 mg PO SUSA 12/07/24 furosemide 20 mg tablet 20 mg PO DAILY #30 tabs 12/11/24 amoxicillin 875 mg-potassium clavulanate 125 mg tablet 1 tab PO BID #10 tabs 12/12/24 Hospital Course Operations None Procedures None Summary of Care Provided Minutes Spent on Discharge: 55 Hospital Course: Patient is a 69-year-old male with past medical history as outlined was admitted through the ED on 12/07/2024 with a complaint of bilateral lower extremity wounds. He did have a history of chronic lower extremity ulcers which were thought to be due to venous stasis ulcers. She had been following up with the wound care and said he had recently been on antibiotics for about a week but his symptoms did not improve so he went to the ED from the wound clinic. On admission he had mildly elevated white cell count with mild left shift. Labs were otherwise unremarkable. He was started on broad-spectrum antibiotics and admitted to be managed for cellulitis of the lower extremities. Plastic surgery was consulted and recommended wet-to-dry Dakin's dressings twice daily as well as pressure offloading and elevation of the legs. CT of the lower extremities done showed obstruction of the infrarenal IVC and pelvic and abdominal venous collaterals with multisegmental moderate arterial sclerosis in the bilateral tibial vessels with runoff to the feet and distended gallbladder with cholelithiasis as well as prostatomegaly and right suprapatellar joint effusion. He had been on Lasix for lower extremity edema but this was discontinued due to hypotension. Vascular surgery was consulted and reviewed patient and recommended that patient could have recanalization attempt of the veins of the lower extremities but said this could be done on outpatient basis. Patient's wound cultures were positive for VRE. His vancomycin was therefore discontinued. Was discussed with ID recommended that patient could be put on Augmentin for 5-day course. Patient was [facility] to [facility] living facility on 12/12/2024. He is follow-up with his primary care doctor and follow- up with vascular surgery and wound care as well as plastic surgery within 1 to 2 weeks on outpatient basis. Of note he was placed on p.o. Lasix 20 mg daily on discharge. As stated his Lasix 60 mg daily was discontinued due to hypotension. Patient seen and examined prior to discharge. He was a bit lethargic because he had received tramadol but this lethargy subsequently resolved. Review of systems otherwise negative. Labs and vitals reviewed. Home medication reviewed and reconciled. Physical Exam Const alert, oriented x3, no apparent distress and average body habitus Constitutional Narrative: Class III obesity. General Appearance: cooperative and comfortable Orientation / Consciousness: awake HEENT normocephalic, head/scalp atraumatic, hearing grossly normal bilaterally and moist oral mucous membranes Mouth: oral and palatal mucosa normal Eyes PERRL, EOMs intact bilaterally and conjunctivae normal Neck no lymphadenopathy and supple Lymph Lymphatic: no lymphadenopathy noted and no lymphedema noted Resp normal respiratory effort, no retractions, no use of accessory muscles and clear to auscultation bilaterally Cardio regular rate, regular rhythm, S1 normal heart sound, S2 normal heart sound and no murmurs GI normal to inspection, nondistended, normoactive bowel sounds, soft to palpation, non-tender and non-distended Extremity normal capillary refill Extremity Narrative: mild LE bipedal edema, superficial ulcerations above medial malleolus. Both LEs wrapped in bandage. General Extremity: no tenderness to palpation of joints or extremities Skin Skin Narrative: as under extremities. Neuro oriented x3, CN's II-XII intact bilaterally, moves all extremities and no focal motor deficits Sensorium / Orientation: awake and alert Speech: speech normal Motor Exam: strength 5/5 throughout and general weakness Psych thought process normal, cooperative and affect normal Appearance: appropriate Weight / BMI Weight Weight: 263 lb 10.766 oz Body Mass Index (BMI) 45.0 ABG / Lab / Microbiology Data 12/12/24 06:10 12/12/24 06:10 Laboratory: Laboratory Results - last 24 hr 12/12/24 06:10: WBC 6.2, RBC 3.59 L, Hgb 11.1 L, Hct 33.8 L, MCV 94.2 H, MCH 30.9, MCHC 32.8, RDW Std Deviation 50.9 H, RDW Coeff of [place] 14.7 H, Plt Count 464 H, MPV 9.0, Immature Gran % (Auto) 0.600, Neut % (Auto) 62.3, Lymph % (Auto) 20.0, [place] % (Auto) 12.1 H, Eos % (Auto) 4.4, Baso % (Auto) 0.6, Absolute Neuts (auto) 3.9, Absolute Lymphs (auto) 1.24, Nucleated RBC % 0, PT 21.1 H, INR 1.8, Sodium 139, Potassium 3.5, Chloride 104, Carbon Dioxide 24.7, Anion Gap 10, BUN 19, Creatinine 0.70, Estim Creat Clear Calc 105.65, Est GFR (MDRD) Non-Af 101, B UN/Creatinine Ratio 27.5 H, Glucose 101 H, Calcium 8.5 Microbiology: Microbiology 12/07/24 10:59 Blood Culture (Wb) - Anticubital Right Blood Culture - Final No growth in 5 days. 12/07/24 10:59 Blood Culture (Wb) - Right Forearm Blood Culture - Final No growth in 5 days. 12/07/24 14:30 Wound - Leg, Right Gram Stain - Final 12/07/24 14:30 Wound - Leg, Right Wound Culture - Final Providencia stuartii Vancomycin Resist. E. faecalis Corynebacterium striatum 12/07/24 14:30 Wound - Leg, Right Skin and Soft Tissue MRSA/MSSA (PCR - Final D/C Instructions Discharge Diet: Low fat / Low cholesterol Discharge Activity: Return to Normal Activity Weight Bearing Status: Weight bearing as tolerated Call your doctor if you observe: Fever of 101 or Higher, Shortness of breath, Dizziness, Swelling in the ankles and Chest pain DC O2, CPAP, BIPAP Needs Home O2 Discharge instructions: No Meaningful Use Info Meaningful Use Meaningful Use Diagnoses (Choose all that apply): None applicable Ischemic Stroke Statin Dosing Therapy Reference: STATIN DOSE THERAPY REFERENCE: * Patients > 75 years receive moderate or high dose statin therapy. * Patients 75 years or YOUNGER should receive HIGH intensity statin dose unless contraindicated. You will be required to document reason for non-treatment if statin daily dose does not meet guidelines. HIGH DOSE STATIN THERAPY DAILY Atorvastatin > than or = to 40 mg Rosuvastatin > than or = to 20 mg Amlodipine + Atorvastatin > than or = to 2.5/40 mg Ezetimibe + Simvastatin 10/80 mg Simvastatin 80mg Discharge Plan Admission Admit Date/Time: 12/07/24 12:53 Primary Reason for Your Visit: lower extremity venous stasis ulcers with cellulitis Attending Provider: Eliane Benson Primary Care Provider: Patricia Garcia Consulting Providers: Lenin Foss; Inocencia Kruger; Esme Rivera; Wei Allison; Lenin Blackburn Instructions Patient Instructions: ED Venous Leg Ulcer Discharge Orders/Prescriptions Prescriptions: New furosemide 20 mg tablet 20 mg PO DAILY Qty: 30 2RF amoxicillin-pot clavulanate 875-125 mg tablet 1 tab PO BID Qty: 10 0RF Continued phenytoin sodium extended [Dilantin Extended] 100 mg capsule 200 mg PO DAILY niacin 50 mg tablet 25 mg PO DAILY Fish Oil 500 MG capsule 1,000 mg PO TID turmeric root extract 500 mg capsule 1,000 mg PO DAILY baclofen 10 mg tablet 10 mg PO Q8H pregabalin [Lyrica] 75 mg capsule 150 mg PO TID phenytoin sodium extended [Dilantin Extended] 100 mg Capsule 100 mg PO QHS ergocalciferol (vitamin D2) [Vitamin D2] 1,250 mcg (50,000 unit) Capsule 1,250 mcg PO WE coenzyme Q10 [CoQ-10] 100 mg Capsule 100 mg PO DAILY aspirin 81 mg Tablet,Chewable 81 mg PO BREAKFAST Qty: 0 0RF oxycodone 5 mg Tablet 5 mg PO Q6H PRN PRN (Reason: Pain Score 4-10) 3 Days Qty: 20 0RF warfarin 3 mg tablet 3 mg PO MOTUWETHFR tramadol 50 mg tablet 50 mg PO Q8H Rx Instructions: takes meds 06,14,22, then also at 2am warfarin 5 mg tablet 4 mg PO SUSA Discontinued furosemide [Lasix] 40 mg Tablet 60 mg PO BREAKFAST furosemide [Lasix] 20 mg Tablet 60 mg PO LUNCH clonidine HCl 0.1 mg tablet 0.1 mg PO Q12H Referrals / Follow Up: Wei Allison MD [Med Staff - Active Staff] - Within 2 Weeks Patricia Garcia DO [Primary Care Provider] - Within 1 Week Lenin Blackburn MD [Med Staff - Active Staff] - Lenin Foss MD [Med Staff - Active Staff] - Within 1 Week Disposition Disposition (needs filled in before D/C Order can be placed): Home Health Service Charges/Coding Visit Charges Inpatient E&M: 53433 Disch Hosp >30min
[2024-12-12 12:37] VITALS: BP 103/57; PULSE 63; RESP 16; TEMP 36.8; O2SAT 93
--- NOTE | 2024-12-12 13:07 | CASEMGMT ---
RON GALEANO NOTE: Discharge order is in. RON GALEANO to room. Pt sitting up in chair in room. He states he is ready to go home and states he feels safe to discharge home alone. He states his brother will be taking him home and can go to [facility] to [facility] his new Rx's. Pt states the only concern he has @ home is being able to get off of his commode @ home on his own. He does not have a BSC or toilet riser or grab bars by the commode. He states TSR's or 3:1 over-commode rails would not fit in his bathroom. Discussed toilet riser and he would like to get this. He was made aware [facility] does not cover the cost. RON GALEANO informed him various places do sell these, he is interested in purchasing, and states he could have someone go to [employer] today to purchase one. RON GALEANO placed call to Josephine @ [facility]. She states they have standard toilet risers that lock onto the commode, cost $39.99 and also ones w/arms on them, cost $59.99, both in [place] [address]. Pt states he wants to get the standard toilet riser, and that he can afford this. He will ask his son to pick it up. Pt verifies he wishes to resume /[facility] and is agreeable to having PT/OT added. Roberta @ [facility] aware pt is being discharged home today and that therapy is being added to [facility] order. Coretta RAMÍREZ RN, CM
[2024-12-12 15:39] VITALS: BP 106/64; PULSE 65; RESP 18; TEMP 36.6; O2SAT 98
[2024-12-12 16:46] VITALS: BP 126/68; PULSE 64; O2SAT 97
== END 2024-12-12 17:22 | disposition home health service (06) | DRG 300 ==
LOC: ED 11:29 → MS3 13:09
PROVIDERS: Internal Medicine; Admitting Provider Internal Medicine; Emergency Provider Emergency Medicine; PCP Family Medicine; Visit Provider Student in an Organized Health Care Education/Training Program
DX: I83.018 Varicose veins of right lower extremity with ulcer other part of lower leg (principal); L03.115 Cellulitis of right lower limb; Z68.41 Body mass index [BMI] 40.0-44.9, adult; L97.819 Non-pressure chronic ulcer of other part of right lower leg with unspecified severity; Z68.42 Body mass index [BMI] 45.0-49.9, adult; L97.829 Non-pressure chronic ulcer of other part of left lower leg with unspecified severity; L03.116 Cellulitis of left lower limb; B95.2 Enterococcus as the cause of diseases classified elsewhere; Z66 Do not resuscitate; G40.909 Epilepsy, unspecified, not intractable, without status epilepticus; I10 Essential (primary) hypertension; I70.90 Unspecified atherosclerosis; E66.01 Morbid (severe) obesity due to excess calories; E78.5 Hyperlipidemia, unspecified; E55.9 Vitamin D deficiency, unspecified; I87.2 Venous insufficiency (chronic) (peripheral); K82.8 Other specified diseases of gallbladder; K80.20 Calculus of gallbladder without cholecystitis without obstruction; I83.028 Varicose veins of left lower extremity with ulcer other part of lower leg; I95.9 Hypotension, unspecified; Z80.0 Family history of malignant neoplasm of digestive organs; Z79.01 Long term (current) use of anticoagulants; Z79.891 Long term (current) use of opiate analgesic; Z79.82 Long term (current) use of aspirin; E66.813 Obesity, class 3; Y83.8 Other surgical procedures as the cause of abnormal reaction of the patient, or of later complication, without mention of misadventure at the time of the procedure; Z86.711 Personal history of pulmonary embolism; G89.29 Other chronic pain; N40.0 Benign prostatic hyperplasia without lower urinary tract symptoms
CPT/HCPCS: 36415; 73700; 75635; 80048; 80053; 80076; 80202; 83605; 83735; 84100; 85025; 85610; 87040; 87070; 87077; 87186; 87205; 87640; 90662; 94668; 97110; 97116; 97162; 97166; 97530; 97535; 97802; 99213; 99284; Q9967; A4216; G0463

== ENCOUNTER 2025-01-04 11:15 | Outpatient (RCR) | payer MEDICARE, OTHER, SELFPAY ==
[2024-12-08 00:34] VITALS: BP 130/70; PULSE 77; RESP 18; TEMP 35.4
[2024-12-14 09:45] VITALS: BP 126/70; PULSE 74; RESP 18; TEMP 35.3
--- NOTE | 2024-12-14 13:03 | WC ---
PHOTO 12/14/24 RIGHT LATERAL LE
--- NOTE | 2024-12-14 13:04 | WC ---
PHOTO 12/14/24 RIGHT [facility]
--- NOTE | 2024-12-14 13:05 | WC ---
PHOTO 12/14/24 Antony MARSHALL
--- NOTE | 2024-12-14 13:05 | WC ---
PHOTO 12/14/24 E LATERAL
--- NOTE | 2024-12-14 14:16 | PCM.WC.PN ---
History of Present Illness Date of Service: 12/14/24 Chief Complaint: venous ulcers of left lower extremity History of Wound: Mauricio is a 69 yo gentleman who is here today for evaluation of ulcers to to his bilateral lower legs. He has been treated multiple times in the past at the wound healing center for similar ulcers. The left LE ulcer started after he developed increased swelling and blisters of left leg in October and the right leg started sometime at the end of October. He was seen at PCP's office a culture was taken and it was resistant to several antibiotics. He was treated initially with Levaquin but had myalgias and then was treated with doxycycline which he finished 2 days ago. He denies improvement and is having swelling to his left calf and thigh. He has been having swelling to both lower extremities for many years and it has worsened over the last few months. He has not been compliant with compression. He has had increased pain especially in the left leg. He has clear yellow drainage and redness without odor or warmth. He is anti-coagulated on coumadin. He has been washing with Dial soap and witch ifrah. He had been using Collagen at times and using Calcium Alginate and covering with ABD pads during October. He was treated with 3M compression and Aquacel Ag. He was referred to the wound center for ongoing treatment. His ulcers have moderate to heavy drainage. He was in the hospital from 11/30/22 until 12/09/22 for treatment of cellulitis and edema. He underwent treatment with Vancomycin and IV lasix and compression. Discharged on 12/09/22. He returned to his assisted living apartment on Tuesday12/21/22. Subjective Subjective Mauricio is a 69-year-old male with longstanding history of chronic venous ulceration to the left lower extremity and now a right lower extremity venous ulcer that is nearly circumferential. Wound culture from 12/07/24 was positive for Providencia stuartii, Vancomycin resistant E. Faecalis, Corynebacterium striatum and is on Augmentin orally. His edema is a little better this week and he has been using ABDs and Dakins wet to dry gauze. His ulcers are generally the same if not worse this week. He is using KATE wraps for compression. 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 He continues to use his lymphedema pumps but continues to have pain with use of these pumps. 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 Objective Data Objective Data Vital Signs: Vital Signs Temp Pulse Resp BP 95.5 F L 74 18 126/70 H 12/14/24 09:45 12/14/24 09:45 12/14/24 09:45 12/14/24 09:45 Physical Exam Const alert, oriented x3 and no apparent distress General Appearance: cooperative and comfortable HEENT normocephalic and head/scalp atraumatic Lymph Lymphatic: lymphedema moderate Resp normal respiratory effort Effort and Inspection: able to speak in complete sentences Cardio regular rate and regular rhythm Extremity Extremity Narrative: His ulcers are painful and larger and the right lower leg is more swollen than his left General Extremity: edema bilateral lower extremity Details: severe Skin General Skin Exam: venous stasis and dermatitis Wounds: wounds noted Wound Narrative: as in clinical panel, + odor, devitalized tissue, there is increased depth, + granulation tissue right lateral ulcer with good granulation and minimal slough Psych mental status grossly normal, thought process normal, cooperative and affect normal Debridement Note Debridement Note Wound debrided: left medial LE ulcer Laterality: Left Type of Debridement: Excisional debridement Anesthesia Used: 5% Lidocaine Gel and Cetacaine Depth: Down to and including healthy tissue and in the subcutaneous layer Percentage of wound debrided: 100 Instrument Used: - (Misonix ultrasonic debridement) Tissue Removed: Yellow slough, devitalized tissue Severity: Fat Layer Exposed Amount of bleeding with debridement: Mild Bleeding Controlled with: Compression and gauze Patient tolerated procedure: Patient tolerated procedure well Post-Debridement Measurements and Additional Note: Post-Debridement Measurements/Treatment - Nurse 1 - General Ulcer Assessment Start: 12/14/24 09:45 Freq: Status: Active Protocol: ONDINA Activity Type Activity Date Activity User E-sign Co-sign Detail Recorded Client Recorded Date Recorded By Document 12/14/24 09:45 ARPIT [id number] 12/14/24 10:11 RB 12/14/24 09:45 - Today's Visit Information Type of service Follow-up Visit (Physician/TEST LAB TECHNICIAN ) Arrival Mode Ambulatory, Walker Transfer Assistance None Patient Identification Verified (Name & Yes ) Patient Requires Transmission-Based No Precautions Vital Signs Temperature (97.8 F-99.1 F) 95.5 F L Temperature Source Temporal Pulse Rate (60-100) 74 Pulse Location Monitor Respiratory Rate (12-18) 18 Respiratory rate source Observation Blood Pressure (90/60-120/80) 126/70 H Blood Pressure Mean (mm Hg) 88 Source Monitor Position Semi-Fowlers Blood Pressure Location Right Arm History Since Last Visit- (Skip if this is Patient's initial visit) Have you changed medications since your Yes last visit? Any new allergies or adverse reactions No Had a fall/change in ADL's that may No increase risk of falls Signs or symptoms of abuse and/or No neglect since last visit Have you been in the hospital since your Yes last visit? Has dressing in place as prescribed Yes Has compression in place as prescribed Yes Has offloadiing in place as prescribed No Experienced any changes in pain level or No management Left Footwear Regular Shoe Right Footwear Regular Shoe Pain Scale: 0-10 Numeric Is Patient Pain Free? Yes LLE -Description Sharp,Burning -Intensity 7 -Duration (hours) Acute -Pain Behavior Withdrawal from Touch -Pain Aggravating Factors ADL's,Exercise/ Activity, Debridement -Alleviating Factors/Interventions Medication -Effectiveness of Alleviating Factor/ Moderately Intervention effective WC - Nurse 1 - General Ulcer Measurement Start: 12/14/24 09:45 Freq: Status: Active Protocol: Activity Type Activity Date Activity User E-sign Co-sign Detail Recorded Client Recorded Date Recorded By Document 12/14/24 09:45 RB [id number] 12/14/24 10:11 RB 12/14/24 09:45 Wound Center Nurse 1 #23 R Lat Leg -Combined with other wound No -Current Size (cm) - Length 10.5 -Current Size (cm) - Width 10.5 -Current Size (cm) - Depth 0.2 -Total Square Cm 110.25 -Photo Taken Yes -Tunneling No -Undermining/Tunneling No -Circular Undermining No -Exudate Amt Medium -Exudate Type Serosanguineous -Wound Margin Distinct, Outline Attached -Granulation Amt Medium (34-66%) -Granulation Quality Hooper -Slough/Fibrin Yes -Necrosis Amt Small (1-33%) -Necrotic Tissue Type Adherent Slough -Structure Exposed N/A -Texture (Marie-wound Skin Appearance) Assessed, Scarring -Moisture (Marie-wound Skin Appearance) Assessed -Color (Marie-wound Skin Appearance) Assessed -Temperature (Marie-wound Skin No Abnormality Appearance) (Pt Warm) -Tenderness on Palpation (Marie-wound No Skin Appearance) -Ulcer Cleansing Wound Cleanser -Foul Odor after Cleansing No -Anesthetic Used 5% Lidocaine Gel #24 Left Lateral Leg -Combined with other wound No -Current Size (cm) - Length 10.5 -Current Size (cm) - Width 10.5 -Current Size (cm) - Depth 0.2 -Total Square Cm 110.25 -Photo Taken Yes -Tunneling No -Undermining/Tunneling No -Circular Undermining No -Exudate Amt Medium -Exudate Type Serosanguineous -Wound Margin Distinct, Outline Attached -Granulation Amt Medium (34-66%) -Granulation Quality Hooper -Slough/Fibrin Yes -Necrosis Amt Medium (34-66%) -Necrotic Tissue Type Adherent Slough -Structure Exposed N/A -Texture (Marie-wound Skin Appearance) Assessed, Scarring -Moisture (Marie-wound Skin Appearance) Assessed -Color (Marie-wound Skin Appearance) Assessed -Temperature (Marie-wound Skin No Abnormality Appearance) (Pt Warm) -Tenderness on Palpation (Marie-wound No Skin Appearance) -Ulcer Cleansing Wound Cleanser -Foul Odor after Cleansing No -Anesthetic Used 5% Lidocaine Gel *#22 R Medial Leg circumferential -Combined with other wound No -Current Size (cm) - Length 14.5 -Current Size (cm) - Width 14.5 -Current Size (cm) - Depth 0.2 -Total Square Cm 210.25 -Photo Taken Yes -Tunneling No -Undermining/Tunneling No -Circular Undermining No -Exudate Amt Medium -Exudate Type Serosanguineous -Wound Margin Thickened & Rolled Under -Granulation Amt Medium (34-66%) -Granulation Quality Hooper -Slough/Fibrin Yes -Necrosis Amt Medium (34-66%) -Necrotic Tissue Type Adherent Slough -Structure Exposed N/A -Texture (Marie-wound Skin Appearance) Assessed, Scarring -Moisture (Marie-wound Skin Appearance) Assessed -Color (Marie-wound Skin Appearance) Assessed -Temperature (Marie-wound Skin No Abnormality Appearance) (Pt Warm) -Tenderness on Palpation (Marie-wound No Skin Appearance) -Ulcer Cleansing Wound Cleanser -Foul Odor after Cleansing No -Anesthetic Used 5% Lidocaine Gel #18 Left medial LE cluster -Combined with other wound No -Current Size (cm) - Length 9 -Current Size (cm) - Width 15 -Current Size (cm) - Depth 0.2 -Total Square Cm 135 -Photo Taken Yes -Tunneling No -Undermining/Tunneling No -Circular Undermining No -Exudate Amt Medium -Exudate Type Serosanguineous -Wound Margin Distinct, Outline Attached -Granulation Amt Medium (34-66%) -Granulation Quality Hooper -Slough/Fibrin Yes -Necrosis Amt Medium (34-66%) -Necrotic Tissue Type Adherent Slough -Structure Exposed N/A -Texture (Marie-wound Skin Appearance) Scarring -Moisture (Marie-wound Skin Appearance) Assessed -Color (Marie-wound Skin Appearance) Assessed -Temperature (Marie-wound Skin No Abnormality Appearance) (Pt Warm) -Tenderness on Palpation (Marie-wound No Skin Appearance) -Ulcer Cleansing Wound Cleanser -Foul Odor after Cleansing No -Anesthetic Used 5% Lidocaine Gel Lower Limb Edema Present Yes Right Calf (cm) 52.2 Right Ankle (cm) 29.2 Left Calf (cm) 47.5 Left Ankle (cm) 29.4 WC - Nurse 2 - General Ulcer CM Notes Start: 12/14/24 09:45 Freq: Status: Active Protocol: Activity Type Activity Date Activity User E-sign Co-sign Detail Recorded Client Recorded Date Recorded By Document 12/14/24 10:42 GM [id number] 12/14/24 11:03 GM 12/14/24 10:42 Wound Center Nurse 2 #23 R Lat Leg -Time 10:43 -Correct Patient Yes -Correct Side, Site, Position Yes -Correct Procedure Yes -Procedure Performed Yes -Type of Procedure Debridement -Clinical Debridement Subcutaneous -Tissue Removed Subcutaneous -Tunneling No -Undermining/Tunneling No -Circular Undermining No -Wound/Ulcer Outcome Not Healed -Ulcer Cleansing Rinsed/ Irrigated with Saline -Foul Odor after Cleansing No -Bioengineered Tissue No -Bleeding Controlled with Pressure -Treatment Response Procedure Tolerated Well -Debridement - Subq, 1st 20sq cm No #24 Left Lateral Leg -Time 10:42 -Correct Patient Yes -Correct Side, Site, Position Yes -Correct Procedure Yes -Procedure Performed Yes -Type of Procedure Debridement -Clinical Debridement Subcutaneous -Tissue Removed Subcutaneous -Post Debridement (cm) - Length 3.1 -Post Debridement (cm) - Width 1.9 -Post Debridement (cm) - Depth 0.1 -Total Square (Post) (cm) 5.89 -Area of Debridement (cm) - Length 3.0 -Area of Debridement (cm) - Width 1.9 -Total Square (Area) (cm) 5.70 -Tunneling No -Undermining/Tunneling No -Circular Undermining No -Wound/Ulcer Outcome Not Healed -Ulcer Cleansing Rinsed/ Irrigated with Saline -Foul Odor after Cleansing No -Bioengineered Tissue No -Bleeding Controlled with Pressure -Treatment Response Procedure Tolerated Well -Offloading No -Debridement - Subq, 1st 20sq cm No *#22 R Medial Leg circumferential -Time 10:43 -Correct Patient Yes -Correct Side, Site, Position Yes -Correct Procedure Yes -Procedure Performed Yes -Type of Procedure Debridement -Clinical Debridement Subcutaneous -Tissue Removed Subcutaneous -Post Debridement (cm) - Length 12.0 -Post Debridement (cm) - Width 26.0 -Post Debridement (cm) - Depth 0.1 -Total Square (Post) (cm) 312.00 -Area of Debridement (cm) - Length 12.0 -Area of Debridement (cm) - Width 26.0 -Total Square (Area) (cm) 312.00 -Tunneling No -Undermining/Tunneling No -Circular Undermining No -Wound/Ulcer Outcome Not Healed -Ulcer Cleansing Rinsed/ Irrigated with Saline -Foul Odor after Cleansing No -Bioengineered Tissue No -Bleeding Controlled with Pressure -Treatment Response Procedure Tolerated Well -Debridement - Subq, 1st 20sq cm No #18 Left medial LE cluster -Time 10:43 -Correct Patient Yes -Correct Side, Site, Position Yes -Correct Procedure Yes -Procedure Performed Yes -Type of Procedure Debridement -Clinical Debridement Subcutaneous -Tissue Removed Subcutaneous -Post Debridement (cm) - Length 9.2 -Post Debridement (cm) - Width 12.5 -Post Debridement (cm) - Depth 0.2 -Total Square (Post) (cm) 115.00 -Area of Debridement (cm) - Length 9.2 -Area of Debridement (cm) - Width 12.5 -Total Square (Area) (cm) 115.00 -Tunneling No -Undermining/Tunneling No -Circular Undermining No -Wound/Ulcer Outcome Not Healed -Ulcer Cleansing Rinsed/ Irrigated with Saline -Foul Odor after Cleansing No -Bioengineered Tissue No -Bleeding Controlled with Pressure -Treatment Response Procedure Tolerated Well -Offloading No -Debridement - Subq, 1st 20sq cm Yes -Debridement, SubQ, ea addt'l 20sq cm 12 or part thereof Pain Scale: 0-10 Numeric Is Patient Pain Free? Yes WC - Nurse 3 - General Ulcer D/C NN Start: 12/14/24 09:45 Freq: Status: Active Protocol: Activity Type Activity Date Activity User E-sign Co-sign Detail Recorded Client Recorded Date Recorded By Document 12/14/24 11:51 RB [id number] 12/14/24 11:54 RB 12/14/24 11:51 Wound Care Center Nurse 3 #24 Left Lateral Leg -Other Dressing dakins moistened gauze / 2 ABD -Primary Dressing Covered/Secured with Dry Gauze & Roll Gauze *#22 R Medial Leg circumferential -Other Dressing dakins moistened gauze /ABD -Primary Dressing Covered/Secured with Dry Gauze & Roll Gauze #18 Left medial LE cluster -Primary Dressing Applied Hysept -Other Dressing dakins moistened gauze / ABD/ kerlix -Hysept 1 BLE -Other kate bilat Treatment Response Procedure Tolerated Well Pain Scale: 0-10 Numeric Is Patient Pain Free? No LLE -Description Sharp,Burning -Intensity 7 -Duration (hours) Acute -Pain Behavior Withdrawal from Touch -Pain Aggravating Factors Exercise/ Activity, Debridement -Alleviating Factors/Interventions None -Effectiveness of Alleviating Factor/ Moderately Intervention effective WC - Visit Discharge Discharge Condition Stable Ambulatory Status Ambulatory, Walker Transportation Private Auto Medication Reconcilliation completed & No provided to patient/care provider Clinical Summary of Care Provided Yes Additional Wound Wound debrided: right lateral leg Laterality: Right Type of Debridement: Excisional debridement Anesthesia Used: 5% Lidocaine Gel and Cetacaine Depth: Down to and including healthy tissue and in the subcutaneous layer Percentage of wound debrided: 100 Instrument Used: - (Misonix ultrasonic debridement) Tissue Removed: Yellow slough, devitalized tissue Severity: Fat Layer Exposed Amount of bleeding with debridement: Mild Bleeding Controlled with: Compression and gauze Patient tolerated procedure: Patient tolerated procedure well Additional Wound Wound debrided: right medial leg Laterality: Right Type of Debridement: Excisional debridement Anesthesia Used: 5% Lidocaine Gel and Cetacaine Depth: Down to and including healthy tissue and in the subcutaneous layer Percentage of wound debrided: 100 Instrument Used: - (Misonix ultrasonic debridement) Tissue Removed: Yellow slough, devitalized tissue Severity: Fat Layer Exposed Amount of bleeding with debridement: Mild Bleeding Controlled with: Compression and gauze Patient tolerated procedure: Patient tolerated procedure well Assessment/Plan Assessment/Plan (1) Lymphedema: CODE(S): I89.0 - Lymphedema, not elsewhere classified (2) Hypertension: CODE(S): I10 - Essential (primary) hypertension QUALIFIERS: Hypertension type: primary hypertension Qualified Code(s): I10 - Essential (primary) hypertension (3) Hyperlipidemia: CODE(S): E78.5 - Hyperlipidemia, unspecified QUALIFIERS: Hyperlipidemia type: mixed hyperlipidemia Qualified Code(s): E78.2 - Mixed hyperlipidemia (4) History of DVT (deep vein thrombosis): CODE(S): Z86.718 - Personal history of other venous thrombosis and embolism (5) Venous insufficiency (chronic) (peripheral): CODE(S): I87.2 - Venous insufficiency (chronic) (peripheral) (6) Venous ulcer of left lower extremity with varicose veins: CODE(S): I83.029 - Varicose veins of left lower extremity with ulcer of unspecified site (7) Edema: CODE(S): R60.9 - Edema, unspecified QUALIFIERS: Edema type: unspecified Qualified Code(s): R60.9 - Edema, unspecified (8) Venous ulcer of right lower extremity with varicose veins: CODE(S): I83.019 - Varicose veins of right lower extremity with ulcer of unspecified site; L97.919 - Non-pressure chronic ulcer of unspecified part of right lower leg with unspecified severity (9) Ulcer of left lower extremity with fat layer exposed: CODE(S): L97.922 - Non-pressure chronic ulcer of unspecified part of left lower leg with fat layer exposed PLAN: Plan Evaluation and debridement of left medial LE ulcer performed today in clinic as annotated above. At home wound-care instructions: Will have him use Dakins wet to dry gauze to his ulcers daily and wrapped with Kerlix and KATE bandages for compression. Due to his chronic lymphedema and being unable to don traditional compression stockings and the presence of venous ulcers on his LE b/l, it is medically necessary for him to have Circaid compression garments. These are being ordered. I suspect he is not very compliant with his lymphedema pumps and not getting adequate compression with tubigrips. Due to the delayed progress in wound healing of his venous ulcers, we discussed applying for advanced wound healing product for healing his ulcer. Due to the size of his ulcer, Theraskin application approval was requested from his insurance as it is medically necessary for salvaging his limb and healing his ulcer. He underwent 2 applications of Theraskin to this ulcer. Since application of Theraskin he has had much improvement in epithelialization of his ulcer even though the overall size is not significantly changed there is progress. Off-loading: The patient was instructed to avoid pressure and friction on the affected areas. Reposition every 2 hours at minimum. Avoid prolonged standing and/or dangling of legs. When seated, feet should be elevated at chest level. Frequent ambulation is encouraged. Encouraged lymphedema pump use. Diet: Patient encouraged to increase protein intake while taking caution to avoid high carbohydrate and/or sugar intake. Labs/cultures/imaging: Wound culture showed Pseudomonas, Escherichia hermannii, Raoultella planticola, Vancomycin Resist. E. faecalis, Alcaligenes faecalis ssp faeca, Staphylococcus cohnii urealyti and anaerobic bacteria on 06/15/24 and he completed on Levofloxacin and Augmentin. Wound culture taken today on right lateral ulcer which showed Raoultella planticola, Staph hemolyticus, staph epidermidis and morganella morganii but no anaeroobic bacteria, Levofloxacin and doxycyline were prescribed based on culture results. Labs ordered 10/19/2024. Vitamin D was low A1C 5.4% Wound culture from 12/07/24 was positive for Providencia stuartii, Vancomycin resistant E. Faecalis, Corynebacterium striatum and is on Augmentin orally. Follow-up: Return in 1 week for wound care follow up and have dressing changed by home health Tuesday and Tuesday. Return sooner or report to the emergency room should symptoms worsen, or new symptoms arise. Note: [employer] speech recognition quantitative associate software was used to create portions of this document. Sound-alike and misspelled words, as well as other quantitative associate errors may be contained in the documentation.
[2024-12-21 10:17] VITALS: BP 132/61; PULSE 84; RESP 16; TEMP 35.8
--- NOTE | 2024-12-21 13:45 | PN.PCM_ITS ---
History of Present Illness Date of Service: 12/21/24 Chief Complaint: venous ulcers of left lower extremity History of Wound: Mauricio is a 69 yo gentleman who is here today for evaluation of ulcers to to his bilateral lower legs. He has been treated multiple times in the past at the wound healing center for similar ulcers. The left LE ulcer started after he developed increased swelling and blisters of left leg in October and the right leg started sometime at the end of October. He was seen at PCP's office a culture was taken and it was resistant to several antibiotics. He was treated initially with Levaquin but had myalgias and then was treated with doxycycline which he finished 2 days ago. He denies improvement and is having swelling to his left calf and thigh. He has been having swelling to both lower extremities for many years and it has worsened over the last few months. He has not been compliant with compression. He has had increased pain especially in the left leg. He has clear yellow drainage and redness without odor or warmth. He is anti- coagulated on coumadin. He has been washing with Dial soap and witch ifrah. He had been using Collagen at times and using Calcium Alginate and covering with ABD pads during October. He was treated with 3M compression and Aquacel Ag. He was referred to the wound center for ongoing treatment. His ulcers have moderate to heavy drainage. He was in the hospital from 11/30/22 until 12/09/22 for treatment of cellulitis and edema. He underwent treatment with Vancomycin and IV lasix and compression. Discharged on 12/09/22. He returned to his assisted living apartment on Tuesday12/21/22. Subjective Subjective Mauricio is a 69-year-old male with longstanding history of chronic venous ulceration to the left lower extremity and now a right lower extremity venous ulcer that is nearly circumferential. Wound culture from 12/07/24 was positive for Providencia stuartii, Vancomycin resistant E. Faecalis, Corynebacterium striatum and completed Augmentin orally. His edema is a lot worse this week and he has been using ABDs and Dakins wet to dry gauze. His ulcers are generally the same if not worse this week. He is using KATE wraps for compression. 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 He continues to use his lymphedema pumps but continues to have pain with use of these pumps. 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 Objective Data Objective Data Vital Signs: Vital Signs Temp Pulse Resp BP O2 Del Method 96.5 F L 84 16 132/61 H Room Air 12/21/24 10:17 12/21/24 10:17 12/21/24 10:17 12/21/24 10:17 12/21/24 10:17 Oxygen Delivery Method Room Air Physical Exam Const alert, oriented x3 and no apparent distress General Appearance: cooperative and comfortable HEENT normocephalic and head/scalp atraumatic Lymph Lymphatic: lymphedema moderate Resp normal respiratory effort Effort and Inspection: able to speak in complete sentences Cardio regular rate and regular rhythm Extremity Extremity Narrative: His ulcers are painful and larger and the right lower leg remains more swollen than his left General Extremity: edema bilateral lower extremity Details: severe Skin General Skin Exam: venous stasis and dermatitis Wounds: wounds noted Wound Narrative: as in clinical panel, + odor, devitalized tissue, there is increased depth, + granulation tissue right lateral ulcer with good granulation and minimal slough Psych mental status grossly normal, thought process normal, cooperative and affect normal Debridement Note Debridement Note Wound debrided: left medial LE ulcer Laterality: Left Type of Debridement: Excisional debridement Anesthesia Used: 5% Lidocaine Gel and Cetacaine Depth: Down to and including healthy tissue and in the subcutaneous layer Percentage of wound debrided: 100 Instrument Used: - (Misonix ultrasonic debridement) Tissue Removed: Yellow slough, devitalized tissue Severity: Fat Layer Exposed Amount of bleeding with debridement: Mild Bleeding Controlled with: Compression and gauze Patient tolerated procedure: Patient tolerated procedure well Post-Debridement Measurements and Additional Note: Post-Debridement Measurements/Treatment WC - Nurse 1 - General Ulcer Assessment Start: 12/14/24 09:45 Freq: Status: Active Protocol: ONDINA Activity Type Activity Date Activity User E-sign Co-sign Detail Recorded Client Recorded Date Recorded By Document 12/14/24 09:45 RB [id number] 12/14/24 10:11 RB Document 12/21/24 10:17 KW [id number] 12/21/24 10:26 KW 12/14/24 12/21/24 09:45 10:17 WC - Today's Visit Information Type of service Follow-up Visit Follow-up Visit (Physician/MEDICAL OFFICE REP (Physician/MEDICAL OFFICE REP ) ) Arrival Mode Ambulatory, Ambulatory, Walker Walker Transfer Assistance None Patient Identification Verified (Name & Yes Yes ) Patient Requires Transmission-Based No Precautions Vital Signs Temperature (97.8 F-99.1 F) 95.5 F L 96.5 F L Temperature Source Temporal Temporal Pulse Rate (60-100) 74 84 Pulse Location Monitor Monitor Respiratory Rate (12-18) 18 16 Respiratory rate source Observation Observation Oxygen Delivery Method Room Air Blood Pressure (90/60-120/80) 126/70 H 132/61 H Blood Pressure Mean (mm Hg) 88 84 Source Monitor Monitor Position Semi-Fowlers Semi-Fowlers Blood Pressure Location Right Arm Left Arm History Since Last Visit- (Skip if this is Patient's initial visit) Have you changed medications since your Yes No last visit? Any new allergies or adverse reactions No No Had a fall/change in ADL's that may No No increase risk of falls Signs or symptoms of abuse and/or No No neglect since last visit Have you been in the hospital since your Yes No last visit? Has dressing in place as prescribed Yes Yes Has compression in place as prescribed Yes Yes Has offloadiing in place as prescribed No N/A Experienced any changes in pain level or No No management Left Footwear Regular Shoe Regular Shoe Right Footwear Regular Shoe Regular Shoe Pain Scale: 0-10 Numeric Is Patient Pain Free? Yes Yes LLE -Description Sharp,Burning -Intensity 7 -Duration (hours) Acute -Pain Behavior Withdrawal from Touch -Pain Aggravating Factors ADL's,Exercise/ Activity, Debridement -Alleviating Factors/Interventions Medication -Effectiveness of Alleviating Factor/ Moderately Intervention effective WC - Nurse 1 - General Ulcer Measurement Start: 12/14/24 09:45 Freq: Status: Active Protocol: Activity Type Activity Date Activity User E-sign Co-sign Detail Recorded Client Recorded Date Recorded By Document 12/14/24 09:45 RB [id number] 12/14/24 10:11 RB Document 12/21/24 10:17 KW [id number] 12/21/24 10:26 KW 12/14/24 12/21/24 09:45 10:17 Wound Center Nurse 1 #23 R Lat Leg -Combined with other wound No -Current Size (cm) - Length 10.5 -Current Size (cm) - Width 10.5 -Current Size (cm) - Depth 0.2 -Total Square Cm 110.25 -Photo Taken Yes -Tunneling No -Undermining/Tunneling No -Circular Undermining No -Exudate Amt Medium -Exudate Type Serosanguineous -Wound Margin Distinct, Outline Attached -Granulation Amt Medium (34-66%) -Granulation Quality [place] -Slough/Fibrin Yes -Necrosis Amt Small (1-33%) -Necrotic Tissue Type Adherent Slough -Structure Exposed N/A -Texture (Marie-wound Skin Appearance) Assessed, Scarring -Moisture (Marie-wound Skin Appearance) Assessed -Color (Marie-wound Skin Appearance) Assessed -Temperature (Marie-wound Skin No Abnormality Appearance) (Pt Warm) -Tenderness on Palpation (Marie-wound No Skin Appearance) -Ulcer Cleansing Wound Cleanser -Foul Odor after Cleansing No -Anesthetic Used 5% Lidocaine Gel #24 Left Lateral Leg -Combined with other wound No -Current Size (cm) - Length 10.5 3 -Current Size (cm) - Width 10.5 2.8 -Current Size (cm) - Depth 0.2 0.1 -Total Square Cm 110.25 8.4 -Date of Last Picture (Recall this 12/21/24 field) -Photo Taken Yes -Tunneling No -Undermining/Tunneling No -Circular Undermining No -Exudate Amt Medium Medium -Exudate Type Serosanguineous Serosanguineous -Wound Margin Distinct, Distinct, Outline Outline Attached Attached -Granulation Amt Medium (34-66%) Medium (34-66%) -Granulation Quality [place] -Slough/Fibrin Yes -Necrosis Amt Medium (34-66%) Large (67-100%) -Necrotic Tissue Type Adherent Slough Adherent Slough -Structure Exposed N/A -Texture (Marie-wound Skin Appearance) Assessed, Assessed Scarring -Moisture (Marie-wound Skin Appearance) Assessed Assessed -Color (Marei-wound Skin Appearance) Assessed Assessed, Erythema, Hemosiderin Staining -Temperature (Marie-wound Skin No Abnormality No Abnormality Appearance) (Pt Warm) (Pt Warm) -Tenderness on Palpation (Marie-wound No No Skin Appearance) -Ulcer Cleansing Wound Cleanser Rinsed/ Irrigated with Saline -Foul Odor after Cleansing No No -Anesthetic Used 5% Lidocaine 5% Lidocaine Gel Gel *#22 R Medial Leg circumferential -Combined with other wound No -Current Size (cm) - Length 14.5 12 -Current Size (cm) - Width 14.5 37.4 -Current Size (cm) - Depth 0.2 0.2 -Total Square Cm 210.25 448.8 -Date of Last Picture (Recall this 12/21/24 field) -Photo Taken Yes -Tunneling No -Undermining/Tunneling No -Circular Undermining No -Exudate Amt Medium Large -Exudate Type Serosanguineous Serosanguineous -Wound Margin Thickened & Distinct, Rolled Under Outline Attached -Granulation Amt Medium (34-66%) Small (1-33%) -Granulation Quality [place] -Slough/Fibrin Yes -Necrosis Amt Medium (34-66%) Large (67-100%) -Necrotic Tissue Type Adherent Slough Adherent Slough -Structure Exposed N/A -Texture (Marie-wound Skin Appearance) Assessed, Assessed Scarring -Moisture (Marie-wound Skin Appearance) Assessed Assessed -Color (Marie-wound Skin Appearance) Assessed Assessed, Erythema, Hemosiderin Staining -Temperature (Marie-wound Skin No Abnormality No Abnormality Appearance) (Pt Warm) (Pt Warm) -Tenderness on Palpation (Marie-wound No No Skin Appearance) -Ulcer Cleansing Wound Cleanser -Foul Odor after Cleansing No No -Anesthetic Used 5% Lidocaine 5% Lidocaine Gel Gel #18 Left medial LE cluster -Combined with other wound No -Current Size (cm) - Length 9 8.8 -Current Size (cm) - Width 15 15.5 -Current Size (cm) - Depth 0.2 0.3 -Total Square Cm 135 136.40 -Date of Last Picture (Recall this 12/21/24 field) -Photo Taken Yes -Tunneling No -Undermining/Tunneling No -Circular Undermining No -Exudate Amt Medium Medium -Exudate Type Serosanguineous Serosanguineous -Wound Margin Distinct, Distinct, Outline Outline Attached Attached -Granulation Amt Medium (34-66%) Small (1-33%) -Granulation Quality [place] -Slough/Fibrin Yes -Necrosis Amt Medium (34-66%) Large (67-100%) -Necrotic Tissue Type Adherent Slough Adherent Slough -Structure Exposed N/A -Texture (Marie-wound Skin Appearance) Scarring Assessed -Moisture (Marie-wound Skin Appearance) Assessed Assessed -Color (Marie-wound Skin Appearance) Assessed Assessed, Erythema, Hemosiderin Staining -Temperature (Marie-wound Skin No Abnormality No Abnormality Appearance) (Pt Warm) (Pt Warm) -Tenderness on Palpation (Mraie-wound No No Skin Appearance) -Ulcer Cleansing Wound Cleanser -Foul Odor after Cleansing No No -Anesthetic Used 5% Lidocaine 5% Lidocaine Gel Gel Lower Limb Edema Present Yes Right Calf (cm) 52.2 53.5 Right Ankle (cm) 29.2 30.2 Left Calf (cm) 47.5 47.0 Left Ankle (cm) 29.4 30.5 WC - Nurse 2 - General Ulcer CM Notes Start: 12/14/24 09:45 Freq: Status: Active Protocol: Activity Type Activity Date Activity User E-sign Co-sign Detail Recorded Client Recorded Date Recorded By Document 12/14/24 10:42 [id number] 12/14/24 11:03 Document 12/21/24 10:41 [id number] 12/21/24 11:10 12/14/24 12/21/24 10:42 10:41 Wound Center Nurse 2 #23 R Lat Leg -Time 10:43 -Correct Patient Yes -Correct Side, Site, Position Yes -Correct Procedure Yes -Procedure Performed Yes -Type of Procedure Debridement -Clinical Debridement Subcutaneous -Tissue Removed Subcutaneous -Tunneling No -Undermining/Tunneling No -Circular Undermining No -Wound/Ulcer Outcome Not Healed -Ulcer Cleansing Rinsed/ Irrigated with Saline -Foul Odor after Cleansing No -Bioengineered Tissue No -Bleeding Controlled with Pressure -Treatment Response Procedure Tolerated Well -Debridement - Subq, 1st 20sq cm No #24 Left Lateral Leg -Time 10:42 10:41 -Correct Patient Yes Yes -Correct Side, Site, Position Yes Yes -Correct Procedure Yes Yes -Procedure Performed Yes Yes -Type of Procedure Debridement Debridement -Clinical Debridement Subcutaneous Subcutaneous -Tissue Removed Subcutaneous -Post Debridement (cm) - Length 3.1 3.1 -Post Debridement (cm) - Width 1.9 2.3 -Post Debridement (cm) - Depth 0.1 0.1 -Total Square (Post) (cm) 5.89 7.13 -Area of Debridement (cm) - Length 3.0 3.1 -Area of Debridement (cm) - Width 1.9 2.3 -Total Square (Area) (cm) 5.70 7.13 -Tunneling No No -Undermining/Tunneling No No -Circular Undermining No No -Wound/Ulcer Outcome Not Healed Not Healed -Ulcer Cleansing Rinsed/ Rinsed/ Irrigated with Irrigated with Saline Saline -Foul Odor after Cleansing No No -Bioengineered Tissue No No -Bleeding Controlled with Pressure Pressure -Treatment Response Procedure Procedure Tolerated Well Tolerated Well -Offloading No No -Debridement - Subq, 1st 20sq cm No No *#22 R Medial Leg circumferential -Time 10:43 10:42 -Correct Patient Yes Yes -Correct Side, Site, Position Yes Yes -Correct Procedure Yes Yes -Procedure Performed Yes Yes -Type of Procedure Debridement Debridement -Clinical Debridement Subcutaneous Subcutaneous -Tissue Removed Subcutaneous Subcutaneous -Post Debridement (cm) - Length 12.0 12.0 -Post Debridement (cm) - Width 26.0 27.0 -Post Debridement (cm) - Depth 0.1 0.2 -Total Square (Post) (cm) 312.00 324.00 -Area of Debridement (cm) - Length 12.0 12.0 -Area of Debridement (cm) - Width 26.0 27.0 -Total Square (Area) (cm) 312.00 324.00 -Tunneling No No -Undermining/Tunneling No No -Circular Undermining No No -Wound/Ulcer Outcome Not Healed Not Healed -Ulcer Cleansing Rinsed/ Rinsed/ Irrigated with Irrigated with Saline Saline -Foul Odor after Cleansing No No -Bioengineered Tissue No No -Bleeding Controlled with Pressure Pressure -Treatment Response Procedure Procedure Tolerated Well Tolerated Well -Offloading No -Debridement - Subq, 1st 20sq cm No No #18 Left medial LE cluster -Time 10:43 10:43 -Correct Patient Yes Yes -Correct Side, Site, Position Yes Yes -Correct Procedure Yes Yes -Procedure Performed Yes Yes -Type of Procedure Debridement Debridement -Clinical Debridement Subcutaneous Subcutaneous -Tissue Removed Subcutaneous Subcutaneous -Post Debridement (cm) - Length 9.2 8.8 -Post Debridement (cm) - Width 12.5 14.0 -Post Debridement (cm) - Depth 0.2 0.1 -Total Square (Post) (cm) 115.00 123.20 -Area of Debridement (cm) - Length 9.2 8.8 -Area of Debridement (cm) - Width 12.5 14.0 -Total Square (Area) (cm) 115.00 123.20 -Tunneling No No -Undermining/Tunneling No No -Circular Undermining No No -Wound/Ulcer Outcome Not Healed Not Healed -Ulcer Cleansing Rinsed/ Rinsed/ Irrigated with Irrigated with Saline Saline -Foul Odor after Cleansing No No -Bioengineered Tissue No No -Bleeding Controlled with Pressure Pressure -Treatment Response Procedure Procedure Tolerated Well Tolerated Well -Offloading No -Debridement - Subq, 1st 20sq cm Yes Yes -Debridement, SubQ, ea addt'l 20sq cm 12 22 or part thereof Pain Scale: 0-10 Numeric Is Patient Pain Free? Yes Yes WC - Nurse 3 - General Ulcer D/C NN Start: 12/14/24 09:45 Freq: Status: Active Protocol: Activity Type Activity Date Activity User E-sign Co-sign Detail Recorded Client Recorded Date Recorded By Document 12/14/24 11:51 RB [id number] 12/14/24 11:54 RB Document 12/21/24 11:33 RB [id number] 12/21/24 11:34 RB Edit Result 12/21/24 11:33 RB (1) [id number] 12/21/24 11:49 RB Edit Result 12/21/24 11:33 RB (2) [id number] 12/21/24 13:06 RB (1) *#22 R Medial Leg circumferential - Primary Dressing Applied Aquacel Extra, => Aquacel Extra, Optilok 6.5x10 => Optilok 5x5 1/2, => Optilok 6.5x10 - Optilok 5x5 1/2 => 1 #18 Left medial LE cluster - Optilok 6.5x10 => 1 (2) #24 Left Lateral Leg - 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) => 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 #18 Left medial LE cluster - Optilok 5x5 1/2 => 0 12/14/24 12/21/24 11:51 11:33 Wound Care Center Nurse 3 #24 Left Lateral Leg -Ulcer Cleansing Rinsed/ Irrigated with Saline -Primary Dressing Applied Aquacel Extra, Optilok 6.5x10 -Other Dressing dakins moistened gauze / 2 ABD -Primary Dressing Covered/Secured with Dry Gauze & Roll Gauze -Aquacel Extra 1 -Optilok 6.5x10 1 -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) 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 *#22 R Medial Leg circumferential -Ulcer Cleansing Rinsed/ Irrigated with Saline -Primary Dressing Applied Aquacel Extra, Optilok 5x5 1/2 ,Optilok 6.5x10 -Other Dressing dakins moistened gauze /ABD -Primary Dressing Covered/Secured with Dry Gauze & Roll Gauze -Aquacel Extra 1 -Optilok 5x5 1/2 1 -Optilok 6.5x10 1 #18 Left medial LE cluster -Ulcer Cleansing Rinsed/ Irrigated with Saline -Primary Dressing Applied Hysept Aquacel Extra -Other Dressing dakins moistened gauze / ABD/ kerlix -Primary Dressing Covered/Secured with Dry Gauze & Roll Gauze, Secured with Tape -Aquacel Extra 1 -Hysept 1 -Optilok 5x5 1/2 0 -Optilok 6.5x10 1 BLE -Multi-Layered Wrap Application Multi-Layer Comp - Bilat ($ ) -Other kate bilat -Multi-Layer Compression Bilat (Qty 4 applied) Treatment Response Procedure Procedure Tolerated Well Tolerated Well Pain Scale: 0-10 Numeric Is Patient Pain Free? No Yes LLE -Description Sharp,Burning -Intensity 7 -Duration (hours) Acute -Pain Behavior Withdrawal from Touch -Pain Aggravating Factors Exercise/ Activity, Debridement -Alleviating Factors/Interventions None -Effectiveness of Alleviating Factor/ Moderately Intervention effective WC - Visit Discharge Discharge Condition Stable Stable Ambulatory Status Ambulatory, Ambulatory, Walker Walker Transportation Private Auto [facility] transport Medication Reconcilliation completed & No No provided to patient/care provider Clinical Summary of Care Provided Yes Yes Additional Wound Wound debrided: right lateral leg Laterality: Right Type of Debridement: Excisional debridement Anesthesia Used: 5% Lidocaine Gel and Cetacaine Depth: Down to and including healthy tissue and in the subcutaneous layer Percentage of wound debrided: 100 Instrument Used: - (Misonix ultrasonic debridement) Tissue Removed: Yellow slough, devitalized tissue Severity: Fat Layer Exposed Amount of bleeding with debridement: Mild Bleeding Controlled with: Compression and gauze Patient tolerated procedure: Patient tolerated procedure well Additional Wound Wound debrided: right medial leg Laterality: Right Type of Debridement: Excisional debridement Anesthesia Used: 5% Lidocaine Gel and Cetacaine Depth: Down to and including healthy tissue and in the subcutaneous layer Percentage of wound debrided: 100 Instrument Used: - (Misonix ultrasonic debridement) Tissue Removed: Yellow slough, devitalized tissue Severity: Fat Layer Exposed Amount of bleeding with debridement: Mild Bleeding Controlled with: Compression and gauze Patient tolerated procedure: Patient tolerated procedure well Assessment/Plan Assessment/Plan (1) Lymphedema: CODE(S): I89.0 - Lymphedema, not elsewhere classified (2) Hypertension: CODE(S): I10 - Essential (primary) hypertension QUALIFIERS: Hypertension type: primary hypertension Qualified Code(s): I10 - Essential (primary) hypertension (3) Hyperlipidemia: CODE(S): E78.5 - Hyperlipidemia, unspecified QUALIFIERS: Hyperlipidemia type: mixed hyperlipidemia Qualified Code(s): E78.2 - Mixed hyperlipidemia (4) History of DVT (deep vein thrombosis): CODE(S): Z86.718 - Personal history of other venous thrombosis and embolism (5) Venous insufficiency (chronic) (peripheral): CODE(S): I87.2 - Venous insufficiency (chronic) (peripheral) (6) Venous ulcer of left lower extremity with varicose veins: CODE(S): I83.029 - Varicose veins of left lower extremity with ulcer of unspecified site (7) Edema: CODE(S): R60.9 - Edema, unspecified QUALIFIERS: Edema type: unspecified Qualified Code(s): R60.9 - Edema, unspecified (8) 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 At home wound-care instructions: Will try using 3M compression with super absorbers and calcium alginate to bilateral lower legs. Due to his chronic lymphedema and being unable to don traditional compression stockings and the presence of venous ulcers on his LE b/l, it is medically necessary for him to have Circaid compression garments. These are being ordered. I suspect he is not very compliant with his lymphedema pumps and not getting adequate compression with tubigrips. Due to the delayed progress in wound healing of his venous ulcers, we discussed applying for advanced wound healing product for healing his ulcer. Due to the size of his ulcer, Theraskin application approval was requested from his insurance as it is medically necessary for salvaging his limb and healing his ulcer. He underwent 2 applications of Theraskin to this ulcer. Since application of Theraskin he has had much improvement in epithelialization of his ulcer even though the overall size is not significantly changed there is progress. Off-loading: The patient was instructed to avoid pressure and friction on the affected areas. Reposition every 2 hours at minimum. Avoid prolonged standing and/or dangling of legs. When seated, feet should be elevated at chest level. Frequent ambulation is encouraged. Encouraged lymphedema pump use. Diet: Patient encouraged to increase protein intake while taking caution to avoid high carbohydrate and/or sugar intake. Labs/cultures/imaging: Wound culture showed Pseudomonas, Escherichia hermannii, Raoultella planticola, Vancomycin Resist. E. faecalis, Alcaligenes faecalis ssp faeca, Staphylococcus cohnii urealyti and anaerobic bacteria on 06/15/24 and he completed on Levofloxacin and Augmentin. Wound culture taken today on right lateral ulcer which showed Raoultella planticola, Staph hemolyticus, staph epidermidis and morganella morganii but no anaeroobic bacteria, Levofloxacin and doxycyline were prescribed based on culture results. Labs ordered 10/19/2024. Vitamin D was low A1C 5.4% Wound culture from 12/07/24 was positive for Providencia stuartii, Vancomycin resistant E. Faecalis, Corynebacterium striatum and completed Augmentin orally. Follow-up: Return in 1 week for wound care follow up and have dressing changed by home health Tuesday. Return sooner or report to the emergency room should symptoms worsen, or new symptoms arise. Note: [employer] speech recognition manager basketball software was used to create portions of this document. Sound-alike and misspelled words, as well as other manager basketball errors may be contained in the documentation.
--- NOTE | 2024-12-24 08:57 | WC ---
12/21/24 RT MED LE CIRC, #2
[2024-12-28 09:24] VITALS: BP 179/75; PULSE 75; RESP 16; TEMP 36.2
--- NOTE | 2024-12-28 14:26 | PN.PCM_ITS ---
History of Present Illness Date of Service: 12/28/24 Chief Complaint: venous ulcers of left lower extremity History of Wound: Mauricio is a 69 yo gentleman who is here today for evaluation of ulcers to to his bilateral lower legs. He has been treated multiple times in the past at the wound healing center for similar ulcers. The left LE ulcer started after he developed increased swelling and blisters of left leg in October and the right leg started sometime at the end of October. He was seen at PCP's office a culture was taken and it was resistant to several antibiotics. He was treated initially with Levaquin but had myalgias and then was treated with doxycycline which he finished 2 days ago. He denies improvement and is having swelling to his left calf and thigh. He has been having swelling to both lower extremities for many years and it has worsened over the last few months. He has not been compliant with compression. He has had increased pain especially in the left leg. He has clear yellow drainage and redness without odor or warmth. He is anti- coagulated on coumadin. He has been washing with Dial soap and witch ifrah. He had been using Collagen at times and using Calcium Alginate and covering with ABD pads during October. He was treated with 3M compression and Aquacel Ag. He was referred to the wound center for ongoing treatment. His ulcers have moderate to heavy drainage. He was in the hospital from 11/30/22 until 12/09/22 for treatment of cellulitis and edema. He underwent treatment with Vancomycin and IV lasix and compression. Discharged on 12/09/22. He returned to his assisted living apartment on Tuesday12/21/22. Subjective Subjective Mauricio is a 69-year-old male with longstanding history of chronic venous ulceration to the left lower extremity and now a right lower extremity venous ulcer that is nearly circumferential. Wound culture from 12/07/24 was positive for Providencia stuartii, Vancomycin resistant E. Faecalis, Corynebacterium striatum and completed Augmentin orally. His edema is better this week and he has been using and calcium alginate since Tuesday. He tolerated the 3M wraps until Tuesday. His ulcers are generally the same if not worse this week. He is using KATE wraps for compression. 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 He continues to use his lymphedema pumps but continues to have pain with use of these pumps. 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 Objective Data Objective Data Vital Signs: Vital Signs Temp Pulse Resp BP O2 Del Method 97.2 F L 75 16 179/75 H Room Air 12/28/24 09:24 12/28/24 09:24 12/28/24 09:24 12/28/24 09:24 12/28/24 09:24 Oxygen Delivery Method Room Air Physical Exam Const alert, oriented x3 and no apparent distress General Appearance: cooperative and comfortable HEENT normocephalic and head/scalp atraumatic Lymph Lymphatic: lymphedema moderate Resp normal respiratory effort Effort and Inspection: able to speak in complete sentences Cardio regular rate and regular rhythm Extremity Extremity Narrative: His ulcers are painful and larger and the right lower leg remains more swollen than his left General Extremity: edema bilateral lower extremity Details: severe Skin General Skin Exam: venous stasis and dermatitis Wounds: wounds noted Wound Narrative: as in clinical panel, + devitalized tissue, there is increased depth, + granulation tissue bilateral ulcer with good granulation and moderate to heavy slough prior to debridement and minimal post debridement Psych mental status grossly normal, thought process normal, cooperative and affect normal Debridement Note Debridement Note Wound debrided: left medial LE ulcer Laterality: Left Type of Debridement: Excisional debridement Anesthesia Used: 5% Lidocaine Gel and Cetacaine Depth: Down to and including healthy tissue and in the subcutaneous layer Percentage of wound debrided: 100 Instrument Used: - (Misonix ultrasonic debridement) Tissue Removed: Yellow slough, devitalized tissue Severity: Fat Layer Exposed Amount of bleeding with debridement: Mild Bleeding Controlled with: Compression and gauze Patient tolerated procedure: Patient tolerated procedure well Post-Debridement Measurements and Additional Note: Post-Debridement Measurements/Treatment WC - Nurse 1 - General Ulcer Assessment Start: 12/14/24 09:45 Freq: Status: Active Protocol: ONDINA Activity Type Activity Date Activity User E-sign Co-sign Detail Recorded Client Recorded Date Recorded By Document 12/14/24 09:45 RB [id number] 12/14/24 10:11 RB Document 12/21/24 10:17 KW [id number] 12/21/24 10:26 KW Document 12/28/24 09:24 KW [id number] 12/28/24 09:35 KW 12/14/24 12/21/24 12/28/24 09:45 10:17 09:24 WC - Today's Visit Information Type of service Follow-up Visit Follow-up Visit Follow-up Visit (Physician/ALLIANCES CONSULTANT (Physician/ALLIANCES CONSULTANT (Physician/ALLIANCES CONSULTANT ) ) ) Arrival Mode Ambulatory, Ambulatory, Ambulatory, Walker Walker Walker Transfer Assistance None Patient Identification Verified (Name & Yes Yes Yes ) Patient Requires Transmission-Based No Precautions Vital Signs Temperature (97.8 F-99.1 F) 95.5 F L 96.5 F L 97.2 F L Temperature Source Temporal Temporal Temporal Pulse Rate (60-100) 74 84 75 Pulse Location Monitor Monitor Monitor Respiratory Rate (12-18) 18 16 16 Respiratory rate source Observation Observation Observation Oxygen Delivery Method Room Air Room Air Blood Pressure (90/60-120/80) 126/70 H 132/61 H 179/75 H Blood Pressure Mean (mm Hg) 88 84 109 Source Monitor Monitor Monitor Position Semi-Fowlers Semi-Fowlers Semi-Fowlers Blood Pressure Location Right Arm Left Arm Left Arm History Since Last Visit- (Skip if this is Patient's initial visit) Have you changed medications since your Yes No No last visit? Any new allergies or adverse reactions No No No Had a fall/change in ADL's that may No No No increase risk of falls Signs or symptoms of abuse and/or No No No neglect since last visit Have you been in the hospital since your Yes No No last visit? Has dressing in place as prescribed Yes Yes Yes Has compression in place as prescribed Yes Yes Yes Has offloadiing in place as prescribed No N/A N/A Experienced any changes in pain level or No No No management Left Footwear Regular Shoe Regular Shoe Regular Shoe Right Footwear Regular Shoe Regular Shoe Regular Shoe Pain Scale: 0-10 Numeric Is Patient Pain Free? Yes Yes Yes LLE -Description Sharp,Burning -Intensity 7 -Duration (hours) Acute -Pain Behavior Withdrawal from Touch -Pain Aggravating Factors ADL's,Exercise/ Activity, Debridement -Alleviating Factors/Interventions Medication -Effectiveness of Alleviating Factor/ Moderately Intervention effective WC - Nurse 1 - General Ulcer Measurement Start: 12/14/24 09:45 Freq: Status: Active Protocol: Activity Type Activity Date Activity User E-sign Co-sign Detail Recorded Client Recorded Date Recorded By Document 12/14/24 09:45 RB [id number] 12/14/24 10:11 RB Document 12/21/24 10:17 KW [id number] 12/21/24 10:26 KW Document 12/28/24 09:24 KW [id number] 12/28/24 09:35 KW 12/14/24 12/21/24 12/28/24 09:45 10:17 09:24 Wound Center Nurse 1 #23 R Lat Leg -Combined with other wound No -Current Size (cm) - Length 10.5 -Current Size (cm) - Width 10.5 -Current Size (cm) - Depth 0.2 -Total Square Cm 110.25 -Photo Taken Yes -Tunneling No -Undermining/Tunneling No -Circular Undermining No -Exudate Amt Medium -Exudate Type Serosanguineous -Wound Margin Distinct, Outline Attached -Granulation Amt Medium (34-66%) -Granulation Quality [place] -Slough/Fibrin Yes -Necrosis Amt Small (1-33%) -Necrotic Tissue Type Adherent Slough -Structure Exposed N/A -Texture (Marie-wound Skin Appearance) Assessed, Scarring -Moisture (Marie-wound Skin Appearance) Assessed -Color (Marie-wound Skin Appearance) Assessed -Temperature (Marie-wound Skin No Abnormality Appearance) (Pt Warm) -Tenderness on Palpation (Marie-wound No Skin Appearance) -Ulcer Cleansing Wound Cleanser -Foul Odor after Cleansing No -Anesthetic Used 5% Lidocaine Gel #24 Left Lateral Leg -Combined with other wound No -Current Size (cm) - Length 10.5 3 3.4 -Current Size (cm) - Width 10.5 2.8 2.4 -Current Size (cm) - Depth 0.2 0.1 0.2 -Total Square Cm 110.25 8.4 8.16 -Date of Last Picture (Recall this 12/21/24 field) -Photo Taken Yes -Tunneling No -Undermining/Tunneling No -Circular Undermining No -Exudate Amt Medium Medium Medium -Exudate Type Serosanguineous Serosanguineous Serosanguineous -Wound Margin Distinct, Distinct, Distinct, Outline Outline Outline Attached Attached Attached -Granulation Amt Medium (34-66%) Medium (34-66%) Small (1-33%) -Granulation Quality [place],Red -Slough/Fibrin Yes -Necrosis Amt Medium (34-66%) Large (67-100%) Large (67-100%) -Necrotic Tissue Type Adherent Slough Adherent Slough Adherent Slough -Structure Exposed N/A -Texture (Marie-wound Skin Appearance) Assessed, Assessed Assessed Scarring -Moisture (Marie-wound Skin Appearance) Assessed Assessed Assessed,Dry/ Scaly -Color (Marie-wound Skin Appearance) Assessed Assessed, Assessed, Erythema, Hemosiderin Hemosiderin Staining Staining -Temperature (Marie-wound Skin No Abnormality No Abnormality No Abnormality Appearance) (Pt Warm) (Pt Warm) (Pt Warm) -Tenderness on Palpation (Marie-wound No No No Skin Appearance) -Ulcer Cleansing Wound Cleanser Rinsed/ Soap and Water Irrigated with Saline -Foul Odor after Cleansing No No -Anesthetic Used 5% Lidocaine 5% Lidocaine 5% Lidocaine Gel Gel Gel *#22 R Medial Leg circumferential -Combined with other wound No -Current Size (cm) - Length 14.5 12 12.2 -Current Size (cm) - Width 14.5 37.4 32.5 -Current Size (cm) - Depth 0.2 0.2 0.2 -Total Square Cm 210.25 448.8 396.50 -Date of Last Picture (Recall this 12/21/24 field) -Photo Taken Yes -Tunneling No -Undermining/Tunneling No -Circular Undermining No -Exudate Amt Medium Large Medium -Exudate Type Serosanguineous Serosanguineous Serosanguineous -Wound Margin Thickened & Distinct, Distinct, Rolled Under Outline Outline Attached Attached -Granulation Amt Medium (34-66%) Small (1-33%) Small (1-33%) -Granulation Quality [place] Red -Slough/Fibrin Yes -Necrosis Amt Medium (34-66%) Large (67-100%) Large (67-100%) -Necrotic Tissue Type Adherent Slough Adherent Slough Adherent Slough -Structure Exposed N/A -Texture (Marie-wound Skin Appearance) Assessed, Assessed Assessed Scarring -Moisture (Marie-wound Skin Appearance) Assessed Assessed Assessed,Dry/ Scaly -Color (Marie-wound Skin Appearance) Assessed Assessed, Assessed, Erythema, Hemosiderin Hemosiderin Staining Staining -Temperature (Marie-wound Skin No Abnormality No Abnormality No Abnormality Appearance) (Pt Warm) (Pt Warm) (Pt Warm) -Tenderness on Palpation (Marie-wound No No No Skin Appearance) -Ulcer Cleansing Wound Cleanser Soap and Water -Foul Odor after Cleansing No No No -Anesthetic Used 5% Lidocaine 5% Lidocaine 5% Lidocaine Gel Gel Gel #18 Left medial LE cluster -Combined with other wound No -Current Size (cm) - Length 9 8.8 8.4 -Current Size (cm) - Width 15 15.5 15.3 -Current Size (cm) - Depth 0.2 0.3 0.2 -Total Square Cm 135 136.40 128.52 -Date of Last Picture (Recall this 12/21/24 12/28/24 field) -Photo Taken Yes -Tunneling No -Undermining/Tunneling No -Circular Undermining No -Exudate Amt Medium Medium Small -Exudate Type Serosanguineous Serosanguineous Serosanguineous -Wound Margin Distinct, Distinct, Distinct, Outline Outline Outline Attached Attached Attached -Granulation Amt Medium (34-66%) Small (1-33%) Small (1-33%) -Granulation Quality [place] Red -Slough/Fibrin Yes -Necrosis Amt Medium (34-66%) Large (67-100%) Large (67-100%) -Necrotic Tissue Type Adherent Slough Adherent Slough Adherent Slough -Structure Exposed N/A -Texture (Marie-wound Skin Appearance) Scarring Assessed Assessed -Moisture (Marie-wound Skin Appearance) Assessed Assessed Assessed,Dry/ Scaly -Color (Marie-wound Skin Appearance) Assessed Assessed, Assessed, Erythema, Hemosiderin Hemosiderin Staining Staining -Temperature (Marie-wound Skin No Abnormality No Abnormality No Abnormality Appearance) (Pt Warm) (Pt Warm) (Pt Warm) -Tenderness on Palpation (Marie-wound No No No Skin Appearance) -Ulcer Cleansing Wound Cleanser Soap and Water -Foul Odor after Cleansing No No No -Anesthetic Used 5% Lidocaine 5% Lidocaine 5% Lidocaine Gel Gel Gel Lower Limb Edema Present Yes Right Calf (cm) 52.2 53.5 49.2 Right Ankle (cm) 29.2 30.2 30.5 Left Calf (cm) 47.5 47.0 45.4 Left Ankle (cm) 29.4 30.5 29.7 WC - Nurse 2 - General Ulcer CM Notes Start: 12/14/24 09:45 Freq: Status: Active Protocol: Activity Type Activity Date Activity User E-sign Co-sign Detail Recorded Client Recorded Date Recorded By Document 12/14/24 10:42 [id number] 12/14/24 11:03 Document 12/21/24 10:41 [id number] 12/21/24 11:10 Document 12/28/24 10:00 [id number] 12/28/24 10:24 12/14/24 12/21/24 12/28/24 10:42 10:41 10:00 Wound Center Nurse 2 #23 R Lat Leg -Time 10:43 -Correct Patient Yes -Correct Side, Site, Position Yes -Correct Procedure Yes -Procedure Performed Yes -Type of Procedure Debridement -Clinical Debridement Subcutaneous -Tissue Removed Subcutaneous -Tunneling No -Undermining/Tunneling No -Circular Undermining No -Wound/Ulcer Outcome Not Healed -Ulcer Cleansing Rinsed/ Irrigated with Saline -Foul Odor after Cleansing No -Bioengineered Tissue No -Bleeding Controlled with Pressure -Treatment Response Procedure Tolerated Well -Debridement - Subq, 1st 20sq cm No #24 Left Lateral Leg -Time 10:42 10:41 10:05 -Correct Patient Yes Yes Yes -Correct Side, Site, Position Yes Yes Yes -Correct Procedure Yes Yes Yes -Procedure Performed Yes Yes Yes -Type of Procedure Debridement Debridement Debridement -Clinical Debridement Subcutaneous Subcutaneous Subcutaneous -Tissue Removed Subcutaneous Subcutaneous -Post Debridement (cm) - Length 3.1 3.1 3.2 -Post Debridement (cm) - Width 1.9 2.3 2.0 -Post Debridement (cm) - Depth 0.1 0.1 0.1 -Total Square (Post) (cm) 5.89 7.13 6.40 -Area of Debridement (cm) - Length 3.0 3.1 3.2 -Area of Debridement (cm) - Width 1.9 2.3 2.0 -Total Square (Area) (cm) 5.70 7.13 6.40 -Tunneling No No No -Undermining/Tunneling No No No -Circular Undermining No No No -Wound/Ulcer Outcome Not Healed Not Healed Not Healed -Ulcer Cleansing Rinsed/ Rinsed/ Rinsed/ Irrigated with Irrigated with Irrigated with Saline Saline Saline -Foul Odor after Cleansing No No No -Bioengineered Tissue No No No -Bleeding Controlled with Pressure Pressure Pressure -Treatment Response Procedure Procedure Procedure Tolerated Well Tolerated Well Tolerated Well -Offloading No No No -Debridement - Subq, 1st 20sq cm No No No *#22 R Medial Leg circumferential -Time 10:43 10:42 10:06 -Correct Patient Yes Yes Yes -Correct Side, Site, Position Yes Yes Yes -Correct Procedure Yes Yes Yes -Procedure Performed Yes Yes Yes -Type of Procedure Debridement Debridement Debridement -Clinical Debridement Subcutaneous Subcutaneous Subcutaneous -Tissue Removed Subcutaneous Subcutaneous Subcutaneous -Post Debridement (cm) - Length 12.0 12.0 12.0 -Post Debridement (cm) - Width 26.0 27.0 26.5 -Post Debridement (cm) - Depth 0.1 0.2 0.1 -Total Square (Post) (cm) 312.00 324.00 318.00 -Area of Debridement (cm) - Length 12.0 12.0 12.0 -Area of Debridement (cm) - Width 26.0 27.0 26.5 -Total Square (Area) (cm) 312.00 324.00 318.00 -Tunneling No No No -Undermining/Tunneling No No No -Circular Undermining No No No -Wound/Ulcer Outcome Not Healed Not Healed Not Healed -Ulcer Cleansing Rinsed/ Rinsed/ Rinsed/ Irrigated with Irrigated with Irrigated with Saline Saline Saline -Foul Odor after Cleansing No No No -Bioengineered Tissue No No No -Bleeding Controlled with Pressure Pressure Pressure -Treatment Response Procedure Procedure Procedure Tolerated Well Tolerated Well Tolerated Well -Offloading No -Debridement - Subq, 1st 20sq cm No No No #18 Left medial LE cluster -Time 10:43 10:43 10:06 -Correct Patient Yes Yes Yes -Correct Side, Site, Position Yes Yes Yes -Correct Procedure Yes Yes Yes -Procedure Performed Yes Yes Yes -Type of Procedure Debridement Debridement Debridement -Clinical Debridement Subcutaneous Subcutaneous Subcutaneous -Tissue Removed Subcutaneous Subcutaneous Subcutaneous -Post Debridement (cm) - Length 9.2 8.8 8.9 -Post Debridement (cm) - Width 12.5 14.0 13.8 -Post Debridement (cm) - Depth 0.2 0.1 0.1 -Total Square (Post) (cm) 115.00 123.20 122.82 -Area of Debridement (cm) - Length 9.2 8.8 8.9 -Area of Debridement (cm) - Width 12.5 14.0 13.8 -Total Square (Area) (cm) 115.00 123.20 122.82 -Tunneling No No No -Undermining/Tunneling No No No -Circular Undermining No No No -Wound/Ulcer Outcome Not Healed Not Healed Not Healed -Ulcer Cleansing Rinsed/ Rinsed/ Rinsed/ Irrigated with Irrigated with Irrigated with Saline Saline Saline -Foul Odor after Cleansing No No No -Bioengineered Tissue No No No -Bleeding Controlled with Pressure Pressure Pressure -Treatment Response Procedure Procedure Procedure Tolerated Well Tolerated Well Tolerated Well -Offloading No No -Debridement - Subq, 1st 20sq cm Yes Yes Yes -Debridement, SubQ, ea addt'l 20sq cm 12 22 or part thereof Pain Scale: 0-10 Numeric Is Patient Pain Free? Yes Yes Yes WC - Nurse 3 - General Ulcer D/C NN Start: 12/14/24 09:45 Freq: Status: Active Protocol: Activity Type Activity Date Activity User E-sign Co-sign Detail Recorded Client Recorded Date Recorded By Document 12/14/24 11:51 RB [id number] 12/14/24 11:54 RB Document 12/21/24 11:33 RB [id number] 12/21/24 11:34 RB Edit Result 12/21/24 11:33 RB (1) [id number] 12/21/24 11:49 RB Edit Result 12/21/24 11:33 RB (2) [id number] 12/21/24 13:06 RB Document 12/28/24 10:55 KW [id number] 12/28/24 10:57 KW (1) *#22 R Medial Leg circumferential - Primary Dressing Applied Aquacel Extra, => Aquacel Extra, Optilok 6.5x10 => Optilok 5x5 1/2, => Optilok 6.5x10 - Optilok 5x5 1/2 => 1 #18 Left medial LE cluster - Optilok 6.5x10 => 1 (2) #24 Left Lateral Leg - 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) => RANJANA CHOI DIAMOND POWDER TECHNICIAN ASSITED IN BILATERAL LE 3M WRAPS #18 Left medial LE cluster - Optilok 5x5 1/2 => 0 12/14/24 12/21/24 12/28/24 11:51 11:33 10:55 Wound Care Center Nurse 3 #24 Left Lateral Leg -Ulcer Cleansing Rinsed/ Irrigated with Saline -Primary Dressing Applied Aquacel Extra, Aquacel AG 4x4 Optilok 6.5x10 -Other Dressing dakins moistened gauze / 2 ABD -Primary Dressing Covered/Secured with Dry Gauze & Dry Gauze & Roll Gauze Roll Gauze, Secured with Tape -Aquacel Extra 1 -Aquacel AG 4x4 1 -Optilok 6.5x10 1 -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) RANJANA CHOI DIAMOND POWDER TECHNICIAN ASSITED IN BILATERAL LE 3M WRAPS *#22 R Medial Leg circumferential -Ulcer Cleansing Rinsed/ Irrigated with Saline -Primary Dressing Applied Aquacel Extra, Aquacel Extra, Optilok 5x5 1/2 Aquacel AG 4x4, ,Optilok 6.5x10 Optilok 5x5 1/2 ,Optilok 6.5x10 -Other Dressing dakins moistened gauze /ABD -Primary Dressing Covered/Secured with Dry Gauze & Dry Gauze & Roll Gauze Roll Gauze, Secured with Tape -Aquacel Extra 1 1 -Aquacel AG 4x4 1 -Optilok 5x5 1/2 1 1 -Optilok 6.5x10 1 1 #18 Left medial LE cluster -Ulcer Cleansing Rinsed/ Irrigated with Saline -Primary Dressing Applied Hysept Aquacel Extra -Other Dressing dakins aquacel ag moistened gauze / ABD/ kerlix -Primary Dressing Covered/Secured with Dry Gauze & Dry Gauze Roll Gauze, Secured with Tape -Aquacel Extra 1 -Hysept 1 -Optilok 5x5 1/2 0 -Optilok 6.5x10 1 BLE -Multi-Layered Wrap Application Multi-Layer Multi-Layer Comp - Bilat ($ Comp - Bilat ($ ) ) -Other kate bilat -Multi-Layer Compression Bilat (Qty 4 1 applied) Treatment Response Procedure Procedure Tolerated Well Tolerated Well Pain Scale: 0-10 Numeric Is Patient Pain Free? No Yes Yes LLE -Description Sharp,Burning -Intensity 7 -Duration (hours) Acute -Pain Behavior Withdrawal from Touch -Pain Aggravating Factors Exercise/ Activity, Debridement -Alleviating Factors/Interventions None -Effectiveness of Alleviating Factor/ Moderately Intervention effective WC - Visit Discharge Discharge Condition Stable Stable Stable Ambulatory Status Ambulatory, Ambulatory, Walker Walker Walker Transportation [facility] transport Medication Reconcilliation completed & No No No provided to patient/care provider Clinical Summary of Care Provided Yes Yes Yes Additional Wound Wound debrided: right lateral leg Laterality: Right Type of Debridement: Excisional debridement Anesthesia Used: 5% Lidocaine Gel and Cetacaine Depth: Down to and including healthy tissue and in the subcutaneous layer Percentage of wound debrided: 100 Instrument Used: - (Misonix ultrasonic debridement) Tissue Removed: Yellow slough, devitalized tissue Severity: Fat Layer Exposed Amount of bleeding with debridement: Mild Bleeding Controlled with: Compression and gauze Patient tolerated procedure: Patient tolerated procedure well Additional Wound Wound debrided: right medial leg Laterality: Right Type of Debridement: Excisional debridement Anesthesia Used: 5% Lidocaine Gel and Cetacaine Depth: Down to and including healthy tissue and in the subcutaneous layer Percentage of wound debrided: 100 Instrument Used: - (Misonix ultrasonic debridement) Tissue Removed: Yellow slough, devitalized tissue Severity: Fat Layer Exposed Amount of bleeding with debridement: Mild Bleeding Controlled with: Compression and gauze Patient tolerated procedure: Patient tolerated procedure well Assessment/Plan Assessment/Plan (1) Lymphedema: CODE(S): I89.0 - Lymphedema, not elsewhere classified (2) Hypertension: CODE(S): I10 - Essential (primary) hypertension QUALIFIERS: Hypertension type: primary hypertension Qualified Code(s): I10 - Essential (primary) hypertension (3) Hyperlipidemia: CODE(S): E78.5 - Hyperlipidemia, unspecified QUALIFIERS: Hyperlipidemia type: mixed hyperlipidemia Qualified Code(s): E78.2 - Mixed hyperlipidemia (4) History of DVT (deep vein thrombosis): CODE(S): Z86.718 - Personal history of other venous thrombosis and embolism (5) Venous insufficiency (chronic) (peripheral): CODE(S): I87.2 - Venous insufficiency (chronic) (peripheral) (6) Venous ulcer of left lower extremity with varicose veins: CODE(S): I83.029 - Varicose veins of left lower extremity with ulcer of un specified site (7) Edema: CODE(S): R60.9 - Edema, unspecified QUALIFIERS: Edema type: unspecified Qualified Code(s): R60.9 - Edema, unspecified (8) 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 At home wound-care instructions: Will try using 3M compression with super absorbers and calcium alginate to bilateral lower legs with change on Tuesday or Tuesday. Due to his chronic lymphedema and being unable to don traditional compression stockings and the presence of venous ulcers on his LE b/l, it is medically necessary for him to have Circaid compression garments. These are being ordered. I suspect he is not very compliant with his lymphedema pumps and not getting adequate compression with tubigrips. Due to the delayed progress in wound healing of his venous ulcers, we discussed applying for advanced wound healing product for healing his ulcer. Due to the size of his ulcer, Theraskin application approval was requested from his insurance as it is medically necessary for salvaging his limb and healing his ulcer. He underwent 2 applications of Theraskin to this ulcer. Since application of Theraskin he has had much improvement in epithelialization of his ulcer even though the overall size is not significantly changed there is progress. Off-loading: The patient was instructed to avoid pressure and friction on the affected areas. Reposition every 2 hours at minimum. Avoid prolonged standing and/or dangling of legs. When seated, feet should be elevated at chest level. Frequent ambulation is encouraged. Encouraged lymphedema pump use. Diet: Patient encouraged to increase protein intake while taking caution to avoid high carbohydrate and/or sugar intake. Labs/cultures/imaging: Wound culture showed Pseudomonas, Escherichia hermannii, Raoultella planticola, Vancomycin Resist. E. faecalis, Alcaligenes faecalis ssp faeca, Staphylococcus cohnii urealyti and anaerobic bacteria on 06/15/24 and he completed on Levofloxacin and Augmentin. Wound culture taken today on right lateral ulcer which showed Raoultella planticola, Staph hemolyticus, staph epidermidis and morganella morganii but no anaeroobic bacteria, Levofloxacin and doxycyline were prescribed based on culture results. Labs ordered 10/19/2024. Vitamin D was low A1C 5.4% Wound culture from 12/07/24 was positive for Providencia stuartii, Vancomycin resistant E. Faecalis, Corynebacterium striatum and completed Augmentin orally. Follow-up: Return in 1 week for wound care follow up and have dressing changed by home health Tuesday. Return sooner or report to the emergency room should symptoms worsen, or new symptoms arise. Note: [employer] speech recognition healthcare administration intern software was used to create portions of this document. Sound-alike and misspelled words, as well as other healthcare administration intern errors may be contained in the documentation.
[2025-01-04 11:43] VITALS: BP 148/84; PULSE 67; RESP 18; TEMP 35.7
--- NOTE | 2025-01-04 12:27 | WC ---
PHOTO 01/04/25 LEFT LATERAL LEG
--- NOTE | 2025-01-04 12:28 | WC ---
PHOTO 01/04/25 RIGHT MEDIAL LEG
--- NOTE | 2025-01-04 12:30 | WC ---
PHOTO 01/04/25 RIGHT MED LEG CIRC
--- NOTE | 2025-01-04 12:30 | WC ---
PHOTO 01/04/25 LEFT MEDIAL LEG
--- NOTE | 2025-01-04 14:26 | PCM.WC.PN ---
History of Present Illness Date of Service: 01/04/25 Chief Complaint: venous ulcers of left lower extremity History of Wound: Mauricio is a 69 yo gentleman who is here today for evaluation of ulcers to to his bilateral lower legs. He has been treated multiple times in the past at the wound healing center for similar ulcers. The left LE ulcer started after he developed increased swelling and blisters of left leg in October and the right leg started sometime at the end of October. He was seen at PCP's office a culture was taken and it was resistant to several antibiotics. He was treated initially with Levaquin but had myalgias and then was treated with doxycycline which he finished 2 days ago. He denies improvement and is having swelling to his left calf and thigh. He has been having swelling to both lower extremities for many years and it has worsened over the last few months. He has not been compliant with compression. He has had increased pain especially in the left leg. He has clear yellow drainage and redness without odor or warmth. He is anti-coagulated on coumadin. He has been washing with Dial soap and witch ifrah. He had been using Collagen at times and using Calcium Alginate and covering with ABD pads during October. He was treated with 3M compression and Aquacel Ag. He was referred to the wound center for ongoing treatment. His ulcers have moderate to heavy drainage. He was in the hospital from 11/30/22 until 12/09/22 for treatment of cellulitis and edema. He underwent treatment with Vancomycin and IV lasix and compression. Discharged on 12/09/22. He returned to his assisted living apartment on Tuesday12/21/22. Subjective Subjective Mauricio is a 69-year-old male with longstanding history of chronic venous ulceration to the left lower extremity and now a right lower extremity venous ulcer that is nearly circumferential. Wound culture from 12/07/24 was positive for Providencia stuartii, Vancomycin resistant E. Faecalis, Corynebacterium striatum and completed Augmentin orally. His edema is better this week and he tolerated the 3M wraps. His ulcers are generally the same this week. He is using KATE wraps for compression. 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 He continues to use his lymphedema pumps but continues to have pain with use of these pumps. 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 Objective Data Objective Data Vital Signs: Vital Signs Temp Pulse Resp BP O2 Del Method 96.3 F L 67 18 148/84 H Room Air 01/04/25 11:43 01/04/25 11:43 01/04/25 11:43 01/04/25 11:43 01/04/25 11:43 Oxygen Delivery Method Room Air Physical Exam Const alert, oriented x3 and no apparent distress General Appearance: cooperative and comfortable HEENT normocephalic and head/scalp atraumatic Lymph Lymphatic: lymphedema moderate Resp normal respiratory effort Effort and Inspection: able to speak in complete sentences Cardio regular rate and regular rhythm Extremity Extremity Narrative: His ulcers are painful and larger and the right lower leg remains more swollen than his left General Extremity: edema bilateral lower extremity Details: severe Skin General Skin Exam: venous stasis and dermatitis Wounds: wounds noted Wound Narrative: as in clinical panel, + devitalized tissue, there is increased depth, + granulation tissue bilateral ulcer with good granulation and moderate to heavy slough prior to debridement and minimal post debridement Psych mental status grossly normal, thought process normal, cooperative and affect normal Debridement Note Debridement Note Wound debrided: left medial LE ulcer Laterality: Left Type of Debridement: Excisional debridement Anesthesia Used: 5% Lidocaine Gel and Cetacaine Depth: Down to and including healthy tissue and in the subcutaneous layer Percentage of wound debrided: 100 Instrument Used: - (Misonix ultrasonic debridement) Tissue Removed: Yellow slough, devitalized tissue Severity: Fat Layer Exposed Amount of bleeding with debridement: Mild Bleeding Controlled with: Compression and gauze Patient tolerated procedure: Patient tolerated procedure well Post-Debridement Measurements and Additional Note: Post-Debridement Measurements/Treatment DEBBIE - Nurse 1 - General Ulcer Assessment Start: 12/14/24 09:45 Freq: Status: Active Protocol: ONDINA Activity Type Activity Date Activity User E-sign Co-sign Detail Recorded Client Recorded Date Recorded By Document 12/14/24 09:45 RB [id number] 12/14/24 10:11 RB Document 12/21/24 10:17 KW [id number] 12/21/24 10:26 KW Document 12/28/24 09:24 KW [id number] 12/28/24 09:35 KW Document 01/04/25 11:43 KW [id number] 01/04/25 11:51 KW 12/14/24 12/21/24 12/28/24 09:45 10:17 09:24 - Today's Visit Information Type of service Follow-up Visit Follow-up Visit Follow-up Visit (Physician/PEER FINANCIAL COUNSELOR (Physician/PEER FINANCIAL COUNSELOR (Physician/PEER FINANCIAL COUNSELOR ) ) ) Arrival Mode Ambulatory, Ambulatory, Ambulatory, Walker Walker Walker Transfer Assistance None Patient Identification Verified (Name & Yes Yes Yes ) Patient Requires Transmission-Based No Precautions Vital Signs Temperature (97.8 F-99.1 F) 95.5 F L 96.5 F L 97.2 F L Temperature Source Temporal Temporal Temporal Pulse Rate (60-100) 74 84 75 Pulse Location Monitor Monitor Monitor Respiratory Rate (12-18) 18 16 16 Respiratory rate source Observation Observation Observation Oxygen Delivery Method Room Air Room Air Blood Pressure (90/60-120/80) 126/70 H 132/61 H 179/75 H Blood Pressure Mean (mm Hg) 88 84 109 Source Monitor Monitor Monitor Position Semi-Fowlers Semi-Fowlers Semi-Fowlers Blood Pressure Location Right Arm Left Arm Left Arm History Since Last Visit- (Skip if this is Patient's initial visit) Have you changed medications since your Yes No No last visit? Any new allergies or adverse reactions No No No Had a fall/change in ADL's that may No No No increase risk of falls Signs or symptoms of abuse and/or No No No neglect since last visit Have you been in the hospital since your Yes No No last visit? Has dressing in place as prescribed Yes Yes Yes Has compression in place as prescribed Yes Yes Yes Has offloadiing in place as prescribed No N/A N/A Experienced any changes in pain level or No No No management Left Footwear Regular Shoe Regular Shoe Regular Shoe Right Footwear Regular Shoe Regular Shoe Regular Shoe Pain Scale: 0-10 Numeric Is Patient Pain Free? Yes Yes Yes LLE -Description Sharp,Burning -Intensity 7 -Duration (hours) Acute -Pain Behavior Withdrawal from Touch -Pain Aggravating Factors ADL's,Exercise/ Activity, Debridement -Alleviating Factors/Interventions Medication -Effectiveness of Alleviating Factor/ Moderately Intervention effective 01/04/25 11:43 - Today's Visit Information Type of service Follow-up Visit (Physician/PEER FINANCIAL COUNSELOR ) Arrival Mode Ambulatory, Walker Transfer Assistance Patient Identification Verified (Name & Yes ) Patient Requires Transmission-Based Precautions Vital Signs Temperature (97.8 F-99.1 F) 96.3 F L Temperature Source Temporal Pulse Rate (60-100) 67 Pulse Location Monitor Respiratory Rate (12-18) 18 Respiratory rate source Observation Oxygen Delivery Method Room Air Blood Pressure (90/60-120/80) 148/84 H Blood Pressure Mean (mm Hg) 105 Source Monitor Position Semi-Fowlers Blood Pressure Location Left Arm History Since Last Visit- (Skip if this is Patient's initial visit) Have you changed medications since your No last visit? Any new allergies or adverse reactions No Had a fall/change in ADL's that may No increase risk of falls Signs or symptoms of abuse and/or No neglect since last visit Have you been in the hospital since your No last visit? Has dressing in place as prescribed Yes Has compression in place as prescribed No Has offloadiing in place as prescribed N/A Experienced any changes in pain level or No management Left Footwear Regular Shoe Right Footwear Regular Shoe Pain Scale: 0-10 Numeric Is Patient Pain Free? Yes LLE -Description -Intensity -Duration (hours) -Pain Behavior -Pain Aggravating Factors -Alleviating Factors/Interventions -Effectiveness of Alleviating Factor/ Intervention WC - Nurse 1 - General Ulcer Measurement Start: 12/14/24 09:45 Freq: Status: Active Protocol: Activity Type Activity Date Activity User E-sign Co-sign Detail Recorded Client Recorded Date Recorded By Document 12/14/24 09:45 RB [id number] 12/14/24 10:11 RB Document 12/21/24 10:17 KW [id number] 12/21/24 10:26 KW Document 12/28/24 09:24 KW [id number] 12/28/24 09:35 KW Document 01/04/25 11:43 KW [id number] 01/04/25 11:51 KW 12/14/24 12/21/24 12/28/24 09:45 10:17 09:24 Wound Center Nurse 1 #23 R Lat Leg -Combined with other wound No -Current Size (cm) - Length 10.5 -Current Size (cm) - Width 10.5 -Current Size (cm) - Depth 0.2 -Total Square Cm 110.25 -Photo Taken Yes -Tunneling No -Undermining/Tunneling No -Circular Undermining No -Exudate Amt Medium -Exudate Type Serosanguineous -Wound Margin Distinct, Outline Attached -Granulation Amt Medium (34-66%) -Granulation Quality Thomas -Slough/Fibrin Yes -Necrosis Amt Small (1-33%) -Necrotic Tissue Type Adherent Slough -Structure Exposed N/A -Texture (Marie-wound Skin Appearance) Assessed, Scarring -Moisture (Marie-wound Skin Appearance) Assessed -Color (Marie-wound Skin Appearance) Assessed -Temperature (Marie-wound Skin No Abnormality Appearance) (Pt Warm) -Tenderness on Palpation (Marie-wound No Skin Appearance) -Ulcer Cleansing Wound Cleanser -Foul Odor after Cleansing No -Anesthetic Used 5% Lidocaine Gel #24 Left Lateral Leg -Combined with other wound No -Current Size (cm) - Length 10.5 3 3.4 -Current Size (cm) - Width 10.5 2.8 2.4 -Current Size (cm) - Depth 0.2 0.1 0.2 -Total Square Cm 110.25 8.4 8.16 -Date of Last Picture (Recall this 12/21/24 field) -Photo Taken Yes -Tunneling No -Undermining/Tunneling No -Circular Undermining No -Exudate Amt Medium Medium Medium -Exudate Type Serosanguineous Serosanguineous Serosanguineous -Wound Margin Distinct, Distinct, Distinct, Outline Outline Outline Attached Attached Attached -Granulation Amt Medium (34-66%) Medium (34-66%) Small (1-33%) -Granulation Quality Thomas Thomas Thomas,Red -Slough/Fibrin Yes -Necrosis Amt Medium (34-66%) Large (67-100%) Large (67-100%) -Necrotic Tissue Type Adherent Slough Adherent Slough Adherent Slough -Structure Exposed N/A -Texture (Marie-wound Skin Appearance) Assessed, Assessed Assessed Scarring -Moisture (Marie-wound Skin Appearance) Assessed Assessed Assessed,Dry/ Scaly -Color (Marie-wound Skin Appearance) Assessed Assessed, Assessed, Erythema, Hemosiderin Hemosiderin Staining Staining -Temperature (Marie-wound Skin No Abnormality No Abnormality No Abnormality Appearance) (Pt Warm) (Pt Warm) (Pt Warm) -Tenderness on Palpation (Marie-wound No No No Skin Appearance) -Ulcer Cleansing Wound Cleanser Rinsed/ Soap and Water Irrigated with Saline -Foul Odor after Cleansing No No -Anesthetic Used 5% Lidocaine 5% Lidocaine 5% Lidocaine Gel Gel Gel *#22 R Medial Leg circumferential -Combined with other wound No -Current Size (cm) - Length 14.5 12 12.2 -Current Size (cm) - Width 14.5 37.4 32.5 -Current Size (cm) - Depth 0.2 0.2 0.2 -Total Square Cm 210.25 448.8 396.50 -Date of Last Picture (Recall this 12/21/24 field) -Photo Taken Yes -Tunneling No -Undermining/Tunneling No -Circular Undermining No -Exudate Amt Medium Large Medium -Exudate Type Serosanguineous Serosanguineous Serosanguineous -Wound Margin Thickened & Distinct, Distinct, Rolled Under Outline Outline Attached Attached -Granulation Amt Medium (34-66%) Small (1-33%) Small (1-33%) -Granulation Quality Thomas Thomas Red -Slough/Fibrin Yes -Necrosis Amt Medium (34-66%) Large (67-100%) Large (67-100%) -Necrotic Tissue Type Adherent Slough Adherent Slough Adherent Slough -Structure Exposed N/A -Texture (Marie-wound Skin Appearance) Assessed, Assessed Assessed Scarring -Moisture (Marie-wound Skin Appearance) Assessed Assessed Assessed,Dry/ Scaly -Color (Marie-wound Skin Appearance) Assessed Assessed, Assessed, Erythema, Hemosiderin Hemosiderin Staining Staining -Temperature (Marie-wound Skin No Abnormality No Abnormality No Abnormality Appearance) (Pt Warm) (Pt Warm) (Pt Warm) -Tenderness on Palpation (Marie-wound No No No Skin Appearance) -Ulcer Cleansing Wound Cleanser Soap and Water -Foul Odor after Cleansing No No No -Anesthetic Used 5% Lidocaine 5% Lidocaine 5% Lidocaine Gel Gel Gel #18 Left medial LE cluster -Combined with other wound No -Current Size (cm) - Length 9 8.8 8.4 -Current Size (cm) - Width 15 15.5 15.3 -Current Size (cm) - Depth 0.2 0.3 0.2 -Total Square Cm 135 136.40 128.52 -Date of Last Picture (Recall this 12/21/24 12/28/24 field) -Photo Taken Yes -Tunneling No -Undermining/Tunneling No -Circular Undermining No -Exudate Amt Medium Medium Small -Exudate Type Serosanguineous Serosanguineous Serosanguineous -Wound Margin Distinct, Distinct, Distinct, Outline Outline Outline Attached Attached Attached -Granulation Amt Medium (34-66%) Small (1-33%) Small (1-33%) -Granulation Quality Thomas Thomas Red -Slough/Fibrin Yes -Necrosis Amt Medium (34-66%) Large (67-100%) Large (67-100%) -Necrotic Tissue Type Adherent Slough Adherent Slough Adherent Slough -Structure Exposed N/A -Texture (Marie-wound Skin Appearance) Scarring Assessed Assessed -Moisture (Marie-wound Skin Appearance) Assessed Assessed Assessed,Dry/ Scaly -Color (Marie-wound Skin Appearance) Assessed Assessed, Assessed, Erythema, Hemosiderin Hemosiderin Staining Staining -Temperature (Marie-wound Skin No Abnormality No Abnormality No Abnormality Appearance) (Pt Warm) (Pt Warm) (Pt Warm) -Tenderness on Palpation (Marie-wound No No No Skin Appearance) -Ulcer Cleansing Wound Cleanser Soap and Water -Foul Odor after Cleansing No No No -Anesthetic Used 5% Lidocaine 5% Lidocaine 5% Lidocaine Gel Gel Gel Lower Limb Edema Present Yes Right Calf (cm) 52.2 53.5 49.2 Right Ankle (cm) 29.2 30.2 30.5 Left Calf (cm) 47.5 47.0 45.4 Left Ankle (cm) 29.4 30.5 29.7 01/04/25 11:43 Wound Center Nurse 1 #23 R Lat Leg -Combined with other wound -Current Size (cm) - Length -Current Size (cm) - Width -Current Size (cm) - Depth -Total Square Cm -Photo Taken -Tunneling -Undermining/Tunneling -Circular Undermining -Exudate Amt -Exudate Type -Wound Margin -Granulation Amt -Granulation Quality -Slough/Fibrin -Necrosis Amt -Necrotic Tissue Type -Structure Exposed -Texture (Marie-wound Skin Appearance) -Moisture (Marie-wound Skin Appearance) -Color (Marie-wound Skin Appearance) -Temperature (Marie-wound Skin Appearance) -Tenderness on Palpation (Marie-wound Skin Appearance) -Ulcer Cleansing -Foul Odor after Cleansing -Anesthetic Used #24 Left Lateral Leg -Combined with other wound -Current Size (cm) - Length 2.7 -Current Size (cm) - Width 1.9 -Current Size (cm) - Depth 0.1 -Total Square Cm 5.13 -Date of Last Picture (Recall this 01/04/25 field) -Photo Taken -Tunneling -Undermining/Tunneling -Circular Undermining -Exudate Amt -Exudate Type -Wound Margin -Granulation Amt -Granulation Quality -Slough/Fibrin -Necrosis Amt -Necrotic Tissue Type -Structure Exposed -Texture (Marie-wound Skin Appearance) -Moisture (Marie-wound Skin Appearance) -Color (Marie-wound Skin Appearance) -Temperature (Marie-wound Skin Appearance) -Tenderness on Palpation (Marie-wound Skin Appearance) -Ulcer Cleansing -Foul Odor after Cleansing -Anesthetic Used *#22 R Medial Leg circumferential -Combined with other wound -Current Size (cm) - Length 11.5 -Current Size (cm) - Width 33 -Current Size (cm) - Depth 0.2 -Total Square Cm 379.5 -Date of Last Picture (Recall this 01/04/25 field) -Photo Taken -Tunneling -Undermining/Tunneling -Circular Undermining -Exudate Amt Medium -Exudate Type Serosanguineous -Wound Margin Distinct, Outline Attached -Granulation Amt Large (67-100%) -Granulation Quality Red -Slough/Fibrin -Necrosis Amt Medium (34-66%) -Necrotic Tissue Type Adherent Slough -Structure Exposed -Texture (Marie-wound Skin Appearance) Assessed -Moisture (Marie-wound Skin Appearance) Assessed -Color (Marie-wound Skin Appearance) Assessed, Erythema, Hemosiderin Staining -Temperature (Marie-wound Skin No Abnormality Appearance) (Pt Warm) -Tenderness on Palpation (Marie-wound No Skin Appearance) -Ulcer Cleansing Soap and Water -Foul Odor after Cleansing -Anesthetic Used 5% Lidocaine Gel #18 Left medial LE cluster -Combined with other wound -Current Size (cm) - Length 8.5 -Current Size (cm) - Width 15 -Current Size (cm) - Depth 0.3 -Total Square Cm 127.5 -Date of Last Picture (Recall this 01/04/25 field) -Photo Taken -Tunneling -Undermining/Tunneling -Circular Undermining -Exudate Amt Medium -Exudate Type Serosanguineous -Wound Margin Distinct, Outline Attached -Granulation Amt Medium (34-66%) -Granulation Quality Red -Slough/Fibrin -Necrosis Amt Large (67-100%) -Necrotic Tissue Type Adherent Slough -Structure Exposed -Texture (Marie-wound Skin Appearance) Assessed -Moisture (Marie-wound Skin Appearance) Assessed -Color (Marie-wound Skin Appearance) Assessed, Erythema, Hemosiderin Staining -Temperature (Marie-wound Skin No Abnormality Appearance) (Pt Warm) -Tenderness on Palpation (Marie-wound No Skin Appearance) -Ulcer Cleansing Soap and Water -Foul Odor after Cleansing No -Anesthetic Used 5% Lidocaine Gel Lower Limb Edema Present Right Calf (cm) 48 Right Ankle (cm) 28.5 Left Calf (cm) 41 Left Ankle (cm) 30 WC - Nurse 2 - General Ulcer CM Notes Start: 12/14/24 09:45 Freq: Status: Active Protocol: Activity Type Activity Date Activity User E-sign Co-sign Detail Recorded Client Recorded Date Recorded By Document 12/14/24 10:42 [id number] 12/14/24 11:03 GM Document 12/21/24 10:41 GM [id number] 12/21/24 11:10 GM Document 12/28/24 10:00 GM [id number] 12/28/24 10:24 GM Document 01/04/25 12:31 DS [id number] 01/04/25 12:39 DS Edit Result 01/04/25 12:31 DS (1) [id number] 01/04/25 13:02 DS (1) #24 Left Lateral Leg - Post Debridement (cm) - Length => 2.8 - Post Debridement (cm) - Width => 2.3 - Post Debridement (cm) - Depth => 0.1 - Total Square (Post) (cm) => 6.44 - Area of Debridement (cm) - Length => 2.8 - Area of Debridement (cm) - Width => 2.3 - Total Square (Area) (cm) => 6.44 - Debridement, SubQ, ea addt'l 20sq cm => 20 or part thereof *#22 R Medial Leg circumferential - Post Debridement (cm) - Length => 11.8 - Post Debridement (cm) - Width => 25.5 - Post Debridement (cm) - Depth => 0.1 - Total Square (Post) (cm) => 300.90 - Area of Debridement (cm) - Length => 11.8 - Area of Debridement (cm) - Width => 25.5 - Total Square (Area) (cm) => 300.90 #18 Left medial LE cluster - Post Debridement (cm) - Length => 8.8 - Post Debridement (cm) - Width => 12.8 - Post Debridement (cm) - Depth => 0.1 - Total Square (Post) (cm) => 112.64 - Area of Debridement (cm) - Length => 8.8 - Area of Debridement (cm) - Width => 12.8 - Total Square (Area) (cm) => 112.64 12/14/24 12/21/24 12/28/24 10:42 10:41 10:00 Wound Center Nurse 2 #23 R Lat Leg -Time 10:43 -Correct Patient Yes -Correct Side, Site, Position Yes -Correct Procedure Yes -Procedure Performed Yes -Type of Procedure Debridement -Clinical Debridement Subcutaneous -Tissue Removed Subcutaneous -Tunneling No -Undermining/Tunneling No -Circular Undermining No -Wound/Ulcer Outcome Not Healed -Ulcer Cleansing Rinsed/ Irrigated with Saline -Foul Odor after Cleansing No -Bioengineered Tissue No -Bleeding Controlled with Pressure -Treatment Response Procedure Tolerated Well -Debridement - Subq, 1st 20sq cm No #24 Left Lateral Leg -Time 10:42 10:41 10:05 -Correct Patient Yes Yes Yes -Correct Side, Site, Position Yes Yes Yes -Correct Procedure Yes Yes Yes -Procedure Performed Yes Yes Yes -Type of Procedure Debridement Debridement Debridement -Clinical Debridement Subcutaneous Subcutaneous Subcutaneous -Tissue Removed Subcutaneous Subcutaneous -Post Debridement (cm) - Length 3.1 3.1 3.2 -Post Debridement (cm) - Width 1.9 2.3 2.0 -Post Debridement (cm) - Depth 0.1 0.1 0.1 -Total Square (Post) (cm) 5.89 7.13 6.40 -Area of Debridement (cm) - Length 3.0 3.1 3.2 -Area of Debridement (cm) - Width 1.9 2.3 2.0 -Total Square (Area) (cm) 5.70 7.13 6.40 -Tunneling No No No -Undermining/Tunneling No No No -Circular Undermining No No No -Wound/Ulcer Outcome Not Healed Not Healed Not Healed -Ulcer Cleansing Rinsed/ Rinsed/ Rinsed/ Irrigated with Irrigated with Irrigated with Saline Saline Saline -Foul Odor after Cleansing No No No -Bioengineered Tissue No No No -Bleeding Controlled with Pressure Pressure Pressure -Treatment Response Procedure Procedure Procedure Tolerated Well Tolerated Well Tolerated Well -Offloading No No No -Debridement - Subq, 1st 20sq cm No No No -Debridement, SubQ, ea addt'l 20sq cm or part thereof -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) *#22 R Medial Leg circumferential -Time 10:43 10:42 10:06 -Correct Patient Yes Yes Yes -Correct Side, Site, Position Yes Yes Yes -Correct Procedure Yes Yes Yes -Procedure Performed Yes Yes Yes -Type of Procedure Debridement Debridement Debridement -Clinical Debridement Subcutaneous Subcutaneous Subcutaneous -Tissue Removed Subcutaneous Subcutaneous Subcutaneous -Post Debridement (cm) - Length 12.0 12.0 12.0 -Post Debridement (cm) - Width 26.0 27.0 26.5 -Post Debridement (cm) - Depth 0.1 0.2 0.1 -Total Square (Post) (cm) 312.00 324.00 318.00 -Area of Debridement (cm) - Length 12.0 12.0 12.0 -Area of Debridement (cm) - Width 26.0 27.0 26.5 -Total Square (Area) (cm) 312.00 324.00 318.00 -Tunneling No No No -Undermining/Tunneling No No No -Circular Undermining No No No -Wound/Ulcer Outcome Not Healed Not Healed Not Healed -Ulcer Cleansing Rinsed/ Rinsed/ Rinsed/ Irrigated with Irrigated with Irrigated with Saline Saline Saline -Foul Odor after Cleansing No No No -Bioengineered Tissue No No No -Bleeding Controlled with Pressure Pressure Pressure -Treatment Response Procedure Procedure Procedure Tolerated Well Tolerated Well Tolerated Well -Offloading No -Debridement - Subq, 1st 20sq cm No No No -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) #18 Left medial LE cluster -Time 10:43 10:43 10:06 -Correct Patient Yes Yes Yes -Correct Side, Site, Position Yes Yes Yes -Correct Procedure Yes Yes Yes -Procedure Performed Yes Yes Yes -Type of Procedure Debridement Debridement Debridement -Clinical Debridement Subcutaneous Subcutaneous Subcutaneous -Tissue Removed Subcutaneous Subcutaneous Subcutaneous -Post Debridement (cm) - Length 9.2 8.8 8.9 -Post Debridement (cm) - Width 12.5 14.0 13.8 -Post Debridement (cm) - Depth 0.2 0.1 0.1 -Total Square (Post) (cm) 115.00 123.20 122.82 -Area of Debridement (cm) - Length 9.2 8.8 8.9 -Area of Debridement (cm) - Width 12.5 14.0 13.8 -Total Square (Area) (cm) 115.00 123.20 122.82 -Tunneling No No No -Undermining/Tunneling No No No -Circular Undermining No No No -Wound/Ulcer Outcome Not Healed Not Healed Not Healed -Ulcer Cleansing Rinsed/ Rinsed/ Rinsed/ Irrigated with Irrigated with Irrigated with Saline Saline Saline -Foul Odor after Cleansing No No No -Bioengineered Tissue No No No -Bleeding Controlled with Pressure Pressure Pressure -Treatment Response Procedure Procedure Procedure Tolerated Well Tolerated Well Tolerated Well -Offloading No No -Debridement - Subq, 1st 20sq cm Yes Yes Yes -Debridement, SubQ, ea addt'l 20sq cm 12 22 or part thereof -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) Pain Scale: 0-10 Numeric Is Patient Pain Free? Yes Yes Yes ble -Description -Intensity -Duration (hours) -Pain Behavior -Pain Aggravating Factors -Alleviating Factors/Interventions -Comments 01/04/25 12:31 Wound Center Nurse 2 #23 R Lat Leg -Time -Correct Patient -Correct Side, Site, Position -Correct Procedure -Procedure Performed -Type of Procedure -Clinical Debridement -Tissue Removed -Tunneling -Undermining/Tunneling -Circular Undermining -Wound/Ulcer Outcome -Ulcer Cleansing -Foul Odor after Cleansing -Bioengineered Tissue -Bleeding Controlled with -Treatment Response -Debridement - Subq, 1st 20sq cm #24 Left Lateral Leg -Time 12:31 -Correct Patient Yes -Correct Side, Site, Position Yes -Correct Procedure Yes -Procedure Performed Yes -Type of Procedure Debridement -Clinical Debridement Subcutaneous -Tissue Removed Subcutaneous -Post Debridement (cm) - Length 2.8 -Post Debridement (cm) - Width 2.3 -Post Debridement (cm) - Depth 0.1 -Total Square (Post) (cm) 6.44 -Area of Debridement (cm) - Length 2.8 -Area of Debridement (cm) - Width 2.3 -Total Square (Area) (cm) 6.44 -Tunneling No -Undermining/Tunneling No -Circular Undermining No -Wound/Ulcer Outcome Not Healed -Ulcer Cleansing -Foul Odor after Cleansing -Bioengineered Tissue -Bleeding Controlled with Pressure -Treatment Response Procedure Tolerated Well -Offloading -Debridement - Subq, 1st 20sq cm Yes -Debridement, SubQ, ea addt'l 20sq cm 20 or part thereof -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) Misonix used. *#22 R Medial Leg circumferential -Time 12:32 -Correct Patient Yes -Correct Side, Site, Position Yes -Correct Procedure Yes -Procedure Performed Yes -Type of Procedure Debridement -Clinical Debridement Subcutaneous -Tissue Removed Subcutaneous -Post Debridement (cm) - Length 11.8 -Post Debridement (cm) - Width 25.5 -Post Debridement (cm) - Depth 0.1 -Total Square (Post) (cm) 300.90 -Area of Debridement (cm) - Length 11.8 -Area of Debridement (cm) - Width 25.5 -Total Square (Area) (cm) 300.90 -Tunneling No -Undermining/Tunneling No -Circular Undermining No -Wound/Ulcer Outcome Not Healed -Ulcer Cleansing -Foul Odor after Cleansing -Bioengineered Tissue -Bleeding Controlled with Pressure -Treatment Response Procedure Tolerated Well -Offloading -Debridement - Subq, 1st 20sq cm No -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) Misonix used #18 Left medial LE cluster -Time 12:32 -Correct Patient Yes -Correct Side, Site, Position Yes -Correct Procedure Yes -Procedure Performed Yes -Type of Procedure Debridement -Clinical Debridement Subcutaneous -Tissue Removed Subcutaneous -Post Debridement (cm) - Length 8.8 -Post Debridement (cm) - Width 12.8 -Post Debridement (cm) - Depth 0.1 -Total Square (Post) (cm) 112.64 -Area of Debridement (cm) - Length 8.8 -Area of Debridement (cm) - Width 12.8 -Total Square (Area) (cm) 112.64 -Tunneling No -Undermining/Tunneling No -Circular Undermining No -Wound/Ulcer Outcome Not Healed -Ulcer Cleansing Rinsed/ Irrigated with Saline -Foul Odor after Cleansing No -Bioengineered Tissue No -Bleeding Controlled with Pressure -Treatment Response Procedure Tolerated Well -Offloading -Debridement - Subq, 1st 20sq cm No -Debridement, SubQ, ea addt'l 20sq cm or part thereof -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) Misonix used Pain Scale: 0-10 Numeric Is Patient Pain Free? No ble -Description Aching -Intensity 5 -Duration (hours) Chronic -Pain Behavior No Change in Behavior -Pain Aggravating Factors Debridement -Alleviating Factors/Interventions Will continue to monitor, Emotional Support -Comments pain ease and Misonix used WC - Nurse 3 - General Ulcer D/C NN Start: 12/14/24 09:45 Freq: Status: Active Protocol: Activity Type Activity Date Activity User E-sign Co-sign Detail Recorded Client Recorded Date Recorded By Document 12/14/24 11:51 RB [id number] 12/14/24 11:54 RB Document 12/21/24 11:33 RB [id number] 12/21/24 11:34 RB Edit Result 12/21/24 11:33 RB (1) [id number] 12/21/24 11:49 RB Edit Result 12/21/24 11:33 RB (2) [id number] 12/21/24 13:06 RB Document 12/28/24 10:55 KW [id number] 12/28/24 10:57 KW Document 01/04/25 13:05 KW [id number] 01/04/25 13:09 KW (1) *#22 R Medial Leg circumferential - Primary Dressing Applied Aquacel Extra, => Aquacel Extra, Optilok 6.5x10 => Optilok 5x5 1/2, => Optilok 6.5x10 - Optilok 5x5 1/2 => 1 #18 Left medial LE cluster - Optilok 6.5x10 => 1 (2) #24 Left Lateral Leg - 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) => KASSEY CHOI FAA CERTIFIED POWERPLANT MECHANIC ASSITED IN BILATERAL LE 3M WRAPS #18 Left medial LE cluster - Optilok 5x5 1/2 => 0 12/14/24 12/21/24 12/28/24 11:51 11:33 10:55 Wound Care Center Nurse 3 #24 Left Lateral Leg -Ulcer Cleansing Rinsed/ Irrigated with Saline -Primary Dressing Applied Aquacel Extra, Aquacel AG 4x4 Optilok 6.5x10 -Other Dressing dakins moistened gauze / 2 ABD -Primary Dressing Covered/Secured with Dry Gauze & Dry Gauze & Roll Gauze Roll Gauze, Secured with Tape -Aquacel Extra 1 -Aquacel AG 4x4 1 -Optilok 6.5x10 1 -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) RANJANA CHOI FAA CERTIFIED POWERPLANT MECHANIC ASSITED IN BILATERAL LE 3M WRAPS *#22 R Medial Leg circumferential -Ulcer Cleansing Rinsed/ Irrigated with Saline -Primary Dressing Applied Aquacel Extra, Aquacel Extra, Optilok 5x5 1/2 Aquacel AG 4x4, ,Optilok 6.5x10 Optilok 5x5 1/2 ,Optilok 6.5x10 -Other Dressing dakins moistened gauze /ABD -Primary Dressing Covered/Secured with Dry Gauze & Dry Gauze & Roll Gauze Roll Gauze, Secured with Tape -Aquacel Extra 1 1 -Aquacel AG 4x4 1 -Optilok 5x5 1/2 1 1 -Optilok 6.5x10 1 1 #18 Left medial LE cluster -Ulcer Cleansing Rinsed/ Irrigated with Saline -Primary Dressing Applied Hysept Aquacel Extra -Other Dressing dakins aquacel ag moistened gauze / ABD/ kerlix -Primary Dressing Covered/Secured with Dry Gauze & Dry Gauze Roll Gauze, Secured with Tape -Aquacel Extra 1 -Hysept 1 -Optilok 5x5 1/2 0 -Optilok 6.5x10 1 BLE -Multi-Layered Wrap Application Multi-Layer Multi-Layer Comp - Bilat ($ Comp - Bilat ($ ) ) -Other kate bilat -Multi-Layer Compression Bilat (Qty 4 1 applied) Treatment Response Procedure Procedure Tolerated Well Tolerated Well Pain Scale: 0-10 Numeric Is Patient Pain Free? No Yes Yes LLE -Description Sharp,Burning -Intensity 7 -Duration (hours) Acute -Pain Behavior Withdrawal from Touch -Pain Aggravating Factors Exercise/ Activity, Debridement -Alleviating Factors/Interventions None -Effectiveness of Alleviating Factor/ Moderately Intervention effective WC - Visit Discharge Discharge Condition Stable Stable Stable Ambulatory Status Ambulatory, Ambulatory, Walker Walker Walker Transportation Private Auto [facility] transport Medication Reconcilliation completed & No No No provided to patient/care provider Clinical Summary of Care Provided Yes Yes Yes 01/04/25 13:05 Wound Care Center Nurse 3 #24 Left Lateral Leg -Ulcer Cleansing -Primary Dressing Applied -Other Dressing -Primary Dressing Covered/Secured with Dry Gauze & Roll Gauze, Secured with Tape -Aquacel Extra -Aquacel AG 4x4 -Optilok 6.5x10 -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) *#22 R Medial Leg circumferential -Ulcer Cleansing -Primary Dressing Applied -Other Dressing -Primary Dressing Covered/Secured with Dry Gauze & Roll Gauze, Secured with Tape -Aquacel Extra -Aquacel AG 4x4 -Optilok 5x5 1/2 -Optilok 6.5x10 #18 Left medial LE cluster -Ulcer Cleansing -Primary Dressing Applied Optilok 6.5x10 -Other Dressing -Primary Dressing Covered/Secured with -Aquacel Extra -Hysept -Optilok 5x5 1/2 -Optilok 6.5x10 1 BLE -Multi-Layered Wrap Application -Other pt own circaides -Multi-Layer Compression Bilat (Qty applied) Treatment Response Pain Scale: 0-10 Numeric Is Patient Pain Free? Yes LLE -Description -Intensity -Duration (hours) -Pain Behavior -Pain Aggravating Factors -Alleviating Factors/Interventions -Effectiveness of Alleviating Factor/ Intervention WC - Visit Discharge Discharge Condition Ambulatory Status Transportation Medication Reconcilliation completed & provided to patient/care provider Clinical Summary of Care Provided Additional Wound Wound debrided: right lateral leg Laterality: Right Type of Debridement: Excisional debridement Anesthesia Used: 5% Lidocaine Gel and Cetacaine Depth: Down to and including healthy tissue and in the subcutaneous layer Percentage of wound debrided: 100 Instrument Used: - (Misonix ultrasonic debridement) Tissue Removed: Yellow slough, devitalized tissue Severity: Fat Layer Exposed Amount of bleeding with debridement: Mild Bleeding Controlled with: Compression and gauze Patient tolerated procedure: Patient tolerated procedure well Additional Wound Wound debrided: right medial leg Laterality: Right Type of Debridement: Excisional debridement Anesthesia Used: 5% Lidocaine Gel and Cetacaine Depth: Down to and including healthy tissue and in the subcutaneous layer Percentage of wound debrided: 100 Instrument Used: - (Misonix ultrasonic debridement) Tissue Removed: Yellow slough, devitalized tissue Severity: Fat Layer Exposed Amount of bleeding with debridement: Mild Bleeding Controlled with: Compression and gauze Patient tolerated procedure: Patient tolerated procedure well Assessment/Plan Assessment/Plan (1) Lymphedema: CODE(S): I89.0 - Lymphedema, not elsewhere classified (2) Hypertension: CODE(S): I10 - Essential (primary) hypertension QUALIFIERS: Hypertension type: primary hypertension Qualified Code(s): I10 - Essential (primary) hypertension (3) Hyperlipidemia: CODE(S): E78.5 - Hyperlipidemia, unspecified QUALIFIERS: Hyperlipidemia type: mixed hyperlipidemia Qualified Code(s): E78.2 - Mixed hyperlipidemia (4) History of DVT (deep vein thrombosis): CODE(S): Z86.718 - Personal history of other venous thrombosis and embolism (5) Venous insufficiency (chronic) (peripheral): CODE(S): I87.2 - Venous insufficiency (chronic) (peripheral) (6) Venous ulcer of left lower extremity with varicose veins: CODE(S): I83.029 - Varicose veins of left lower extremity with ulcer of unspecified site (7) Edema: CODE(S): R60.9 - Edema, unspecified QUALIFIERS: Edema type: unspecified Qualified Code(s): R60.9 - Edema, unspecified (8) 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 At home wound-care instructions: Will try using Circaid compression garments with super absorber to right LE and ABD to left LE changed every other day. Due to his chronic lymphedema and being unable to don traditional compression stockings and the presence of venous ulcers on his LE b/l, it is medically necessary for him to have Circaid compression garments. These are being ordered. I suspect he is not very compliant with his lymphedema pumps and not getting adequate compression with tubigrips. Due to the delayed progress in wound healing of his venous ulcers, we discussed applying for advanced wound healing product for healing his ulcer. Due to the size of his ulcer, Theraskin application approval was requested from his insurance as it is medically necessary for salvaging his limb and healing his ulcer. He underwent 2 applications of Theraskin to this ulcer. Since application of Theraskin he has had much improvement in epithelialization of his ulcer even though the overall size is not significantly changed there is progress. Off-loading: The patient was instructed to avoid pressure and friction on the affected areas. Reposition every 2 hours at minimum. Avoid prolonged standing and/or dangling of legs. When seated, feet should be elevated at chest level. Frequent ambulation is encouraged. Encouraged lymphedema pump use. Diet: Patient encouraged to increase protein intake while taking caution to avoid high carbohydrate and/or sugar intake. Labs/cultures/imaging: Wound culture showed Pseudomonas, Escherichia hermannii, Raoultella planticola, Vancomycin Resist. E. faecalis, Alcaligenes faecalis ssp faeca, Staphylococcus cohnii urealyti and anaerobic bacteria on 06/15/24 and he completed on Levofloxacin and Augmentin. Wound culture taken today on right lateral ulcer which showed Raoultella planticola, Staph hemolyticus, staph epidermidis and morganella morganii but no anaeroobic bacteria, Levofloxacin and doxycyline were prescribed based on culture results. Labs ordered 10/19/2024. Vitamin D was low A1C 5.4% Wound culture from 12/07/24 was positive for Providencia stuartii, Vancomycin resistant E. Faecalis, Corynebacterium striatum and completed Augmentin orally. Follow-up: Return in 1 week for wound care follow up and have dressing changed by home health Tuesday. Return sooner or report to the emergency room should symptoms worsen, or new symptoms arise. Note: [employer] App speech recognition engine head repairer software was used to create portions of this document. Sound-alike and misspelled words, as well as other engine head repairer errors may be contained in the documentation.
== END 2025-01-07 23:59 | disposition home or self-care (01) ==
LOC: WC 11:15
PROVIDERS: PCP Family Medicine; Referring Provider Family Medicine; Visit Provider Family Medicine
DX: I83.019 Varicose veins of right lower extremity with ulcer of unspecified site (principal); L97.922 Non-pressure chronic ulcer of unspecified part of left lower leg with fat layer exposed; L97.912 Non-pressure chronic ulcer of unspecified part of right lower leg with fat layer exposed; I83.029 Varicose veins of left lower extremity with ulcer of unspecified site; I10 Essential (primary) hypertension; Z86.718 Personal history of other venous thrombosis and embolism; I87.2 Venous insufficiency (chronic) (peripheral); M79.605 Pain in left leg; I89.0 Lymphedema, not elsewhere classified; E78.2 Mixed hyperlipidemia; M79.10 Myalgia, unspecified site
CPT/HCPCS: 11042; 11045; 29581

== ENCOUNTER 2025-01-07 10:48 | Observation (INO) | payer MEDICARE, OTHER, SELFPAY ==
--- NOTE | 2024-12-24 16:23 | PAT.ANE_ITS ---
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 When Was Last Pacemaker Check QUESTION #4 FULL TEXT: You/Your Family Experience fever (hyperthermia) with Anesthesia Last Oral Intake Last Oral intake: Last Oral Intake NPO since Meds taken in AM with sips of water? Meds patient instructed to take am of surgery PONV PONV - vacuum cleaner operator: PONV - vacuum cleaner operator Female No 12/24/24 09:16 HX of Motion Sickness Yes 12/24/24 09:16 HX of N/V After Surgery No 12/24/24 09:16 Non-Smoker Yes 12/24/24 09:16 Duration of Surgery greater Yes 12/24/24 09:16 than 60 minutes Number of Risk Factors 3 12/24/24 09:16 PONV Score Moderate Risk 12/24/24 09:16 Height & Weight Height & Weight: Anesthesia: Height & Weight Height 5 ft 4 in 12/08/24 06:54 Respiratory Assessment Respiratory Assessment - vacuum cleaner operator: Respiratory Tract Infection Hx - vacuum cleaner operator Hx Respiratory Tract Infection No 12/24/24 09:16 STOP Sleep Apnea STOP Sleep Apnea - vacuum cleaner operator: STOP Sleep Apnea - vacuum cleaner operator Hx Hypertension Yes: NO LONGER ON MEDS 12/24/24 09:16 Hx Sleep Apnea Yes: NO LONGER USING BIPAP 12/24/24 09:16 CPAP No 12/24/24 09:16 BIPAP No 12/24/24 09:16 Do you snore loudly (louder than talking or can be heard Do you often feel tired/ fatigued/ sleepy during daytime? Has anyone observed you stop breathing during sleep? STOP Results Positive 12/24/24 09:16 QUESTION #5 FULL TEXT : Do you snore loudly (louder than talking or can be heard through closed doors)? 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 Specify any problems Hx of Preganancy in last 3 N/A 12/24/24 09:16 Months Nurse Filling Out Transfusion JZOLLRUTH 12/24/24 09:16 & Questions: Date: 12/24/24 12/24/24 09:16 Time: 09:21 12/24/24 09:16 Patient unable to answer at this time (ie. confused, unrespo /Reproduction History /Reproductive History - vacuum cleaner operator: /Reproductive Hx- vacuum cleaner operator Hx Now No 12/24/24 09:16 Gestational Age (in weeks): EDC: Hx Hx Para Hx Section SAB No 12/24/24 09:16 [facility] Medical History (Updated 12/24/24 @ 09:16 by Randi Andrade) Sleep apnea Heart murmur Open wounds involving multiple regions of lower extremity with complication Acquired occlusion of inferior vena cava Cellulitis Venous ulcer of right lower extremity with varicose veins Severe protein-calorie malnutrition 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 Cellulitis and abscess of leg Laceration of forehead Fall Wears glasses Alcohol use Uses wheelchair Lupus Pulmonary embolism Stroke/cerebrovascular accident Seizures Non-smoker History of pain when walking History of edema History of stress test Hypertension Edema Venous insufficiency Venous ulcer of left lower extremity with varicose veins Home Medications ?Medication ?Instructions ?Recorded ?Last Taken ?Type omega-3 fatty acids 500 mg capsule 1,000 mg PO TID sup plement 08/27/15 12/07/24 History (Fish Oil) baclofen 10 mg tablet 10 mg PO Q8H Muscle Spasm Unknown History niacin 50 mg tablet 25 mg PO DAILY Check with pr imary 04/14/22 Unknown History doctor phenytoin sodium extended 100 mg 200 mg PO DAILY Check with primary 04/14/22 07/07/22 06:15 History capsule (Dilantin Extended) doctor pregabalin 75 mg capsule (Lyrica) 150 mg PO TID pain c ontrol 04/14/22 12/07/24 History turmeric root extract 500 mg 1,000 mg PO DAILY supplem ent 04/14/22 12/07/24 History capsule coenzyme Q10 100 mg capsule 100 mg PO DAILY Check with primary 07/02/22 12/07/24 History (CoQ-10) doctor ergocalciferol (vitamin D2) 1,250 1,250 mcg PO WE Chec k with primary 07/02/22 12/01/24 History mcg (50,000 unit) capsule (Vitamin doctor D2) phenytoin sodium extended 100 mg 100 mg PO QHS Check w ith primary 07/02/22 Unknown History capsule (Dilantin Extended) doctor aspirin 81 mg chewable tablet 81 mg PO BREAKFAST #0 ta bs 12/08/22 12/07/24 Rx oxycodone 5 mg tablet 5 mg PO Q6H PRN PRN Pain Sco re 12/08/22 Unknown Rx 4-10 3 days #20 tabs tramadol 50 mg tablet 50 mg PO Q8H pain 12/07/24 U nknown History warfarin 3 mg tablet 3 mg PO MOTUWETHFR 12/07/24 Unknown History warfarin 5 mg tablet 4 mg PO SUSA 12/07/24 Unknow n History furosemide 20 mg tablet 20 mg PO DAILY #30 tabs 02/01 Unknown Rx Allergy/AdvReac Type Severity Reaction Status Date / Time duloxetine (From Cymbalta) Allergy Rash Verified 12/24/24 08:59 gabapentin Allergy mood change Verified 12/24/24 08:59 sulfamethoxazole (From Allergy Rash Verified 12/24/24 08:59 Bactrim) trimethoprim (From Bactrim) Allergy Rash Verified 12/24/24 08:59 ciprofloxacin (From Cipro) AdvReac PAIN IN Verified 12/24/24 08:59 FEET ciprofloxacin HCl (From AdvReac Rash Verified 12/24/24 08:59 Cipro) citalopram AdvReac SUICIDAL Verified 12/24/24 08:59 THOUGHTS hydrochlorothiazide AdvReac DIZZINESS Verified 12/24/24 08:59 levetiracetam (From [facility]) AdvReac Other Verified 12/24/24 08:59 [id number] Reductase AdvReac Other Verified 12/24/24 08:59 Inhibitor Family History Father Colon cancer Hypertension Gastric ulcer Mother Heart disease Brother Diabetes Surgical History Hx of colonoscopy History of embolic filter insertion Social History household members: none Smoking Status: Never smoker alcohol intake: never substance use type: does not use Audit: Pertinent Findings Pertinent Findings EKG Perinent findings: March 02, 2021. Normal sinus rhythm. Echo (EF%) pertinent findings: November 30, 2022. Ejection fraction 70%. Technically difficult study?valves not well-visualized. Recommendation Anesthesia Recommendation Anesthesia recommendation: OPTIMIZED for anesthesia
--- NOTE | 2024-12-25 13:52 | EKG12_ITS ---
Test Reason : PRE OP Blood Pressure : */* mmHG Vent. Rate : 80 BPM Atrial Rate : 80 BPM P-R Int : 176 ms QRS Dur : 100 ms QT Int : 380 ms P-R-T Axes : 51 22 67 degrees QTcB Int : 438 ms Normal sinus rhythm Normal ECG Confirmed by SAVITA RANDHAWA, ALLYSON ([id number]), editor dictionary MICAELA DÍAZ ([id number]) on 12/26/2024 8:49:19 AM Referred By: Wei Allison Confirmed By: ALLYSON BARNEY MD
[2024-12-25 15:59] LABS: Partial Thromboplast Time 40.1 Seconds (24.1-36.2)
[2025-01-07] VITALS (20 sets, daily range): BP systolic 93–152; BP diastolic 61–100; PULSE 78–103; RESP 14–18; TEMP 36.2–37.7; O2SAT 93–100; BMI 44.4
[2025-01-07 06:25] LABS: INR Fingerstick 1.2; Prothrombin Time Fingerstick 14.5 SEC (11.7-14.9)
[2025-01-07 06:37] LABS: Hematocrit 39.7 % (40-54); Hemoglobin 13.2 g/dL (13.0-16.5); Mean Corp Hgb Conc 33.2 g/dL (32-36); Mean Corpuscular Hgb 31.3 pg (27.0-32.0); Mean Corpuscular Volume 94.1 fL (80-94); Mean Platelet Vol. 9.1 fl (6.2-12.0); Platelet Count 326 K/mm3 (150-450); RBC Distribution Width CV 15.5 % (11.6-14.6); RBC Distribution Width SD 53.4 fl (35.1-43.9); Red Blood Count 4.22 M/mm3 (4.6-6.2); White Blood Count 9.2 K/mm3 (4.4-11.0)
--- NOTE | 2025-01-07 06:42 | PCM.PRE.AN2 ---
ASA Classification* ASA Classification ASA Classification: 3 Assessment & Plan Anesthesia* Anesthesia Assessment Anesthesia Assessment: Discussed sedation and/or anesthesia options, risks, benefits, and alternatives with patient/parents/legal guardian/POA. Questions invited. The patient/parents/legal guardian/POA seems to understand and agrees to proceed with anesthesia plan. Reviewed the physical assessment, medical history, allergy history and patient home medications list prior to surgery/procedure/anesthetic and documented any changes. Performed airway and anesthesia risk assessments. Anesthesia Type Anesthesia Type: General Anesthesia Focused Assessment* Airway Assessment Mouth opens: >3 cm Mallampati Score: II Focused Labs Anesthesia Preop lab: CBC WBC 9.2 K/mm3 (4.4-11.0) 01/07/25 06:14 01/07/25 RBC 4.22 M/mm3 (4.6-6.2) L 01/07/25 06:14 01/07/25 Hgb 13.2 g/dL (13.0-16.5) 01/07/25 06:14 01/07/25 Hct 39.7 % (40-54) L 01/07/25 06:14 01/07/25 Plt Count 326 K/mm3 (150-450) 01/07/25 06:14 01/07/25 CHEMISTRY Potassium 3.5 mmol/L (3.3-5.1) 12/12/24 06:10 12/12/24 Sodium 139 mmol/L (133-145) 12/12/24 06:10 12/12/24 Magnesium 2.2 mg/dL (1.5-2.2) 12/08/24 05:03 12/08/24 Phosphorus 2.9 mg/dL (2.7-4.5) 12/08/24 05:03 12/08/24 BUN 19 mg/dL (4-19) 12/12/24 06:10 12/12/24 Creatinine 0.70 mg/dL (0.70-1.20) 12/12/24 06:10 12/12/24 Glucose 101 mg/dL (70-99) H 12/12/24 06:10 12/12/24 POC Glucose 127 mg/dL (74-106) H 12/06/22 12:29 12/06/22 TSH 2.60 uIU/mL (0.358-3.74) 03/08/24 10:53 03/08/24 COAG PT 21.1 SECONDS (11.7-14.9) H 12/12/24 06:10 12/12/24 Pre-Assessment Diagnosis/Proposed Procedure Planned Operative Procedure(s): Venogram Possible Stenting Illiac Veins/IVC, Sheet Metal Worker Helper, Anes Only Anesthesia History Anesthesia History - sales representative electric service: Anesthesia History - sales representative electric service Hx Hospitalization Yes: IV ANTIBIOTICS FOR LEG 12/24/24 09:16 ULCERS Any Problems With Anesthesia No 12/24/24 09:16 Cholinesterase deficiency No 12/24/24 09:16 You/Your Family Experience No 12/24/24 09:16 fever (hyperthermia) with Relationship Recent Exposure to Contagious No 07/07/22 07:50 Disease Does patient have nerve No 12/24/24 09:16 stimulator Patient instructed to have device shut off --Does patient have Pacemaker or ICD? When Was Last Pacemaker Check QUESTION #4 FULL TEXT: You/Your Family Experience fever (hyperthermia) with Anesthesia Last Oral Intake Last Oral intake: Last Oral Intake NPO since Meds taken in AM with sips of water? Meds patient instructed to take am of surgery PONV PONV - sales representative electric service: PONV - sales representative electric service Female No 12/24/24 09:16 HX of Motion Sickness Yes 12/24/24 09:16 HX of N/V After Surgery No 12/24/24 09:16 Non-Smoker Yes 12/24/24 09:16 Duration of Surgery greater Yes 12/24/24 09:16 than 60 minutes Number of Risk Factors 3 12/24/24 09:16 PONV Score Moderate Risk 12/24/24 09:16 Height & Weight Height & Weight: Anesthesia: Height & Weight Height 5 ft 4 in 12/10/24 14:14 Respiratory Assessment Respiratory Assessment - sales representative electric service: Respiratory Tract Infection Hx - sales representative electric service Hx Respiratory Tract Infection No 12/24/24 09:16 STOP Sleep Apnea STOP Sleep Apnea - sales representative electric service: STOP Sleep Apnea - sales representative electric service Hx Hypertension Yes: NO LONGER ON MEDS 12/24/24 09:16 Hx Sleep Apnea Yes: NO LONGER USING BIPAP 12/24/24 09:16 CPAP No 12/24/24 09:16 BIPAP No 12/24/24 09:16 Do you snore loudly (louder than talking or can be heard Do you often feel tired/ fatigued/ sleepy during daytime? Has anyone observed you stop breathing during sleep? STOP Results Positive 12/24/24 09:16 QUESTION #5 FULL TEXT : Do you snore loudly (louder than talking or can be heard through closed doors)? 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 Specify any problems Hx of Preganancy in last 3 N/A 12/24/24 09:16 Months Nurse Filling Out Transfusion [email or web address] 12/24/24 09:16 & Questions: Date: 12/24/24 12/24/24 09:16 Time: 09:21 12/24/24 09:16 Patient unable to answer at this time (ie. confused, unrespo /Reproduction History /Reproductive History - sales representative electric service: /Reproductive Hx- sales representative electric service Hx Now No 12/24/24 09:16 Gestational Age (in weeks): EDC: Hx Hx Para Hx Section SAB No 12/24/24 09:16 Active Medications Active Medications: Current Medications Generic Name Dose Route Start Last Admin Trade Name Freq PRN Reason Stop Dose Admin Sodium Chloride 1,000 mls @ 15 mls/hr 01/07/25 06:30 IV .Q48H DHAVAL PFSH Medical History Sleep apnea Heart murmur Open wounds involving multiple regions of lower extremity with complication Acquired occlusion of inferior vena cava Cellulitis Venous ulcer of right lower extremity with varicose veins Severe protein-calorie malnutrition 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 Cellulitis and abscess of leg Laceration of forehead Fall Wears glasses Alcohol use Uses wheelchair Lupus Pulmonary embolism Stroke/cerebrovascular accident Seizures Non-smoker History of pain when walking History of edema History of stress test Hypertension Edema Venous insufficiency Venous ulcer of left lower extremity with varicose veins Home Medications ?Medication ?Instructions ?Recorded ?Last Taken ?Type omega-3 fatty acids 500 mg capsule 1,000 mg PO TID supplement 08/27/15 12/07/24 History (Fish Oil) baclofen 10 mg tablet 10 mg PO Q8H Muscle Spasm 04/14/22 Unknown History niacin 50 mg tablet 25 mg PO DAILY Check with primary 04/14/22 Unknown History doctor phenytoin sodium extended 100 mg 200 mg PO DAILY Check with primary 04/14/22 07/07/22 06:15 History capsule (Dilantin Extended) doctor pregabalin 75 mg capsule (Lyrica) 150 mg PO TID pain control 04/14/22 12/07/24 History turmeric root extract 500 mg 1,000 mg PO DAILY supplement 04/14/22 12/07/24 History capsule coenzyme Q10 100 mg capsule 100 mg PO DAILY Check with primary 07/02/22 12/07/24 History (CoQ-10) doctor ergocalciferol (vitamin D2) 1,250 1,250 mcg PO WE Check with primary 07/02/22 12/01/24 History mcg (50,000 unit) capsule (Vitamin doctor D2) phenytoin sodium extended 100 mg 100 mg PO QHS Check with primary 07/02/22 Unknown History capsule (Dilantin Extended) doctor aspirin 81 mg chewable tablet 81 mg PO BREAKFAST #0 tabs 12/08/22 12/07/24 Rx oxycodone 5 mg tablet 5 mg PO Q6H PRN PRN Pain Score 12/08/22 Unknown Rx 4-10 3 days #20 tabs tramadol 50 mg tablet 50 mg PO Q8H pain 12/07/24 Unknown History warfarin 3 mg tablet 3 mg PO MOTUWETHFR 12/07/24 Unknown History warfarin 5 mg tablet 4 mg PO SUSA 12/07/24 Unknown History furosemide 20 mg tablet 20 mg PO DAILY #30 tabs 12/11/24 Unknown Rx Allergy/AdvReac Type Severity Reaction Status Date / Time duloxetine (From Cymbalta) Allergy Rash Verified 12/24/24 08:59 gabapentin Allergy mood change Verified 12/24/24 08:59 sulfamethoxazole (From Allergy Rash Verified 12/24/24 08:59 Bactrim) trimethoprim (From Bactrim) Allergy Rash Verified 12/24/24 08:59 ciprofloxacin (From Cipro) AdvReac PAIN IN Verified 12/24/24 08:59 FEET ciprofloxacin HCl (From AdvReac Rash Verified 12/24/24 08:59 Cipro) citalopram AdvReac SUICIDAL Verified 12/24/24 08:59 THOUGHTS hydrochlorothiazide AdvReac DIZZINESS Verified 12/24/24 08:59 levetiracetam (From Keppra) AdvReac Other Verified 12/24/24 08:59 [id number] Reductase AdvReac Other Verified 12/24/24 08:59 Inhibitor Family History Father Colon cancer Hypertension Gastric ulcer Mother Heart disease Brother Diabetes Surgical History Hx of colonoscopy History of embolic filter insertion Social History household members: none Smoking Status: Never smoker alcohol intake: never substance use type: does not use Review of Systems (Anesthesia) ROS Narrative System reviewed and no additional complaints, except as documented.
[2025-01-07 07:03] LABS: Anion Gap 12 (5-15); BUN 14 mg/dL (4-19); BUN/Creat Ratio 19.8 RATIO (10-20); Carbon Dioxide 24.6 mmol/L (21.0-32.0); Chloride 103 mmol/L (98-108); Creatinine, Serum 0.73 mg/dL (0.70-1.20); EST Glomerular Filtration Rate 100 (>60); Estimated Creatinine Clearance 104.48 ml/min (50-250); Glucose 103 mg/dL (70-99); Potassium 3.8 mmol/L (3.3-5.1); Sodium Level 139 mmol/L (133-145)
[2025-01-07] MEDS: 0.9% Normal Saline (1000mL) 1,000 ML 15 ML IV (07:32)
--- NOTE | 2025-01-07 07:42 | PCM.HP.BLA ---
History and Physical Allergies duloxetine (From Cymbalta) Allergy (Verified 12/21/24 12:43) Rashgabapentin Allergy (Verified 12/21/24 12:45) mood changesulfamethoxazole (From Bactrim) Allergy (Verified 12/21/24 12:43) Rashtrimethoprim (From Bactrim) Allergy (Verified 12/21/24 12:43) Rashciprofloxacin (From Cipro) Adverse Reaction (Verified 12/21/24 12:43) PAIN IN FEETciprofloxacin HCl (From Cipro) Adverse Reaction (Verified 12/21/24 12:43) Rashcitalopram Adverse Reaction (Verified 12/21/24 12:43) SUICIDAL THOUGHTShydrochlorothiazide Adverse Reaction (Verified 12/21/24 12:43) DIZZINESSlevetiracetam (From Keppra) Adverse Reaction (Verified 12/21/24 12:43) SslcuVxmawma-KPY-CzS Reductase Inhibitor Adverse Reaction (Verified 12/21/24 12:43) Other Medications ?Medication ?Instructions ?Recorded ?Confirmed ?Type omega-3 fatty acids 500 mg capsule 1,000 mg PO TID supplement 08/27/15 12/21/24 History (Fish Oil) baclofen 10 mg tablet 10 mg PO Q8H Muscle Spasm 04/14/22 12/21/24 History niacin 50 mg tablet 25 mg PO DAILY Check with primary 04/14/22 12/21/24 History doctor phenytoin sodium extended 100 mg 200 mg PO DAILY Check with primary 04/14/22 12/21/24 History capsule (Dilantin Extended) doctor pregabalin 75 mg capsule (Lyrica) 150 mg PO TID pain control 04/14/22 12/21/24 History turmeric root extract 500 mg 1,000 mg PO DAILY supplement 04/14/22 12/21/24 History capsule coenzyme Q10 100 mg capsule 100 mg PO DAILY Check with primary 07/02/22 12/21/24 History (CoQ-10) doctor ergocalciferol (vitamin D2) 1,250 1,250 mcg PO WE Check with primary 07/02/22 12/21/24 History mcg (50,000 unit) capsule (Vitamin doctor D2) phenytoin sodium extended 100 mg 100 mg PO QHS Check with primary 07/02/22 12/21/24 History capsule (Dilantin Extended) doctor aspirin 81 mg chewable tablet 81 mg PO BREAKFAST #0 tabs 12/08/22 12/21/24 Rx oxycodone 5 mg tablet 5 mg PO Q6H PRN PRN Pain Score 12/08/22 12/21/24 Rx 4-10 3 days #20 tabs tramadol 50 mg tablet 50 mg PO Q8H pain 12/07/24 12/21/24 History warfarin 3 mg tablet 3 mg PO MOTUWETHFR 12/07/24 12/21/24 History warfarin 5 mg tablet 4 mg PO SUSA 12/07/24 12/21/24 History furosemide 20 mg tablet 20 mg PO DAILY #30 tabs 12/11/24 12/21/24 Rx Have you fallen in the past year?: Yes PFSH Medical History (Updated 12/23/24 @ 09:22 by MARISSA Vivar) Acquired occlusion of inferior vena cava Cellulitis Venous ulcer of right lower extremity with varicose veins Edema Venous insufficiency Venous ulcer of left lower extremity with varicose veins Severe protein-calorie malnutrition 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 Cellulitis and abscess of leg Laceration of forehead Fall Wears glasses Alcohol use Uses wheelchair Lupus Pulmonary embolism Stroke/cerebrovascular accident Seizures Non-smoker History of pain when walking History of edema History of stress test Hypertension Surgical History Hx of colonoscopy History of embolic filter insertion Family History Father Colon cancer Hypertension Gastric ulcerMother Heart diseaseBrother Diabetes Social History household members: none Smoking Status: Never smoker alcohol intake: never substance use type: does not use HPI HPI HPI: ESTEBAN URBINA, is a 69 M who presents to the office today for follow-up prior to scheduled venogram on 01/07/25. He was recently admitted to the hospital due to cellulitis associated with his chronic lower extremity wounds that have been present for 3 years. Prior to this had bilateral LE edema, discoloration gradually worsening over the past 10 years. 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 He has been maintained on coumadin for many years without VTE recurrence or bleeding concerns. While admitted, he had CT showing chronically occluded/obliterated IVC at the site of his filter; duplex revealed extensive chronic DVT and superficial reflux. Secondary to these findings and his significant associated swelling and wounds, plan is for venogram to attempt to recanalize his IVC/iliac veins. His wounds have been stable, no signs of recurrent infection. He reports his INR fluctuates from 2 to well over 3. His [facility] nurses check his INR; [facility] is through the hospital. ROS General General: Yes fatigue; No weight change, appetite, colon cancer, breast cancer or weakness HEENT HEENT: No difficulty swallowing, eye injury, eye surgery, swollen glands or hoarseness Endo Endocrine: Yes cold intolerance; No thyroid disease, diabetes mellitus, thyroid cancer, Hair loss or heat intolerance Skin Skin: No rash or changing moles Musc Musculoskeletal: No back problems, arthritis, rheumatoid arthritis, gout or joint pain Cardio Cardiovascular: Yes murmur; No pacemaker, heart disease, atrial fibrillation, high blood pressure, heart attack, heart stent, palpitations, shortness of breath with exertion or chest pain Psych Psychiatric: No depression, anxiety or hearing voices Resp Respiratory: No shortness of breath, No sleep apnea, No cough, No COPD, No asthma, No emphysema and No wheezing Gastro Gastrointestinal: No abdominal pain, No nausea or vomiting, No diarrhea, Yes constipation, No blood in stool, No acid reflux, No hemorrhoids, No ulcers, No gallbladder problem and No black,tarry stools Jeffrey Hematologic: Yes blood thinners, No blood disorders, No bleeding, No anemia and No blood clots Neuro Neurologic: No system reviewed and no additional complaints, except as documented, No as per HPI, No abnormal gait, No abnormal hearing, No abnormal movements, No abnormal speech, No behavioral changes, Yes burning sensations, No confusion, No convulsions, No disequilibrium, No dizziness, No localized weakness, No frequent falls, No headache(s), No lack of coordination, No loss of vision, No memory loss, No numbness, No other visual disturbances, Yes radicular pain, No restless legs, No sensory deficit, No syncope, No tingling, No tremor(s), No weakness and No other Exam Const General: cooperative, comfortable and no acute distress Nutritional Appearance: obese HENOR Head: normocephalic and atraumatic Ears: hearing grossly normal bilaterally and external ears normal Nose: external nose normal Eyes General: appearance normal, both eyes and all related structures Neck Neck: normal visual inspection Resp Effort & Inspection: normal respiratory effort, able to speak in complete sentences, no audible wheezes, no grunting and not labored Auscultation: clear to auscultation bilaterally Cardio Rate: regular rate Rhythm: regular rhythm Skin General: no rashes or lesions noted Trauma: no lacerations or abrasions Other: Compression wraps and wound dressings in place to bilateral lower legs, wounds not visualized Neuro General: moves all extremities, no focal motor deficits and CN's II-XI intact bilaterally Speech: speech normal Extremities Lower Extremity Edema: +3: Bilateral Psych Appearance: grossly normal Mental Status: mental status grossly normal Affect: normal affect Speech and Movement: speech and movement normal Attitude: cooperative Coding Level of Care Code Off vis,est,level 3 Diagnoses Acquired occlusion of inferior vena cava I82.220 Venous ulcers of both lower extremities I87.2 Assessment and Plan Assessment and Plan (1) Acquired occlusion of inferior vena cava: Status: Acute (2) Venous ulcers of both lower extremities: Status: Chronic Plan -venogram possible intervention
--- NOTE | 2025-01-07 10:56 | OP.PCM_ITS ---
Operative Report (Standard) Operative Information Date of Procedure: 01/07/25 Pre-Operative Diagnosis: IVC occlusion Post-Operative Diagnosis: same, bilateral common iliac occlusions, bilateral external iliac stenoses Surgery/Procedure Performed: Venogram IVC IVUS IVC, bilateral common iliac veins, bilateral external iliac veins watch dial maker: No Type of Anesthesia: General RN Documented Start/Stop Times: Operation Date: 01/07/25 08:00 Case Time Into Pre-Op 01/07/25 06:25 Out of Pre-Op 01/07/25 07:30 Into Recovery 01/07/25 11:22 Out of Recovery 01/07/25 13:09 Procedure Start Time: 08:15 Procedure Stop Time: 10:45 Select all DRAINS/GRAFTS/IMPLANTS that apply: Implanted device Implanted device details: Right- [place] Wall Stent 16x90, Bard Venovo [id number]; Left [place] Wall Stent 16x90, Bard Venovo 14x80, Bard Venovo 12x80 Estimated Blood Loss: 6 Specimen collected: No Description of surgery: HPI: Patient is a 69-year-old male with longstanding bilateral lower extremity edema, chronic skin changes and ulcerations which been present for greater than 3 years. He has a history of prior vena cava filter placement approximately 16 years prior which remains in place and he also is currently on Coumadin for anticoagulation. He had a CT scan which revealed obliterated inferior vena cava adjacent to the filter and what appeared to be patent common and external iliac veins. He presents now for venogram with possible intervention. Description of procedure: Upon obtaining form consent and verification correct patient procedure and site he was taken to the [facility] he was placed under general anesthesia. He was then positioned prepped and draped in usual sterile fashion timeout performed. The right saphenofemoral junction was then accessed under ultrasound guidance with a micropuncture needle wire. This was exchanged for micropuncture sheath through which hand-injection ilio caval venogram was performed revealing satisfactory position with no extravasation or dissection. This also revealed significant pelvic collaterals near the entirety of the contrast exiting via these collaterals and no significant contrast into the vena cava. Through the micropuncture sheath a [employer] wire was advanced and the sheath exchanged for a 10 [place] sheath. Next the left saphenofemoral junction was accessed under ultrasound guidance with a micropuncture needle wire. This exchanged for a micropuncture sheath through which hand-injection ilio caval venogram was performed which revealed collaterals in the lower abdomen and then occluded inferior vena cava, superior aspect of the common iliac vein. The inferior aspect of the common iliac vein and the external iliac vein were patent though significantly irregular. Through the micropuncture sheath a glide advantage wire was advanced and the micropuncture sheath exchanged for a 10 [place] sheath. The patient was in heparinized allowed to circulate for 3 minute s with subsequent heparin dosing based on ACT results. Utilizing a straight stiff Glidewire and an angled quick cross catheter we were able to traverse the totally occluded iliac vein and inferior vena cava advancing wire and catheter through the filter and into the vena cava cephalad. The wires withdrawn a hand- injection subtraction venacavogram performed revealing position within the true lumen no extravasation or dissection. Next an Amplatz wire was advanced through the catheter and positioned in the retrohepatic vena cava. Next the quick cross catheter was advanced over the Bentson wire via the right femoral access and the Bentson wire exchanged for a straight stiff Glidewire. This was then utilized to traverse the total occlusion of the common iliac vein and vena cava advancing wire and catheter through the filter and into the vena cava cephalad. Again the wires withdrawn a hand-injection venacavogram performed revealing satisfactory position with no extravasation or dissection. A second Amplatz wire was then advanced through the catheter and positioned in the retrohepatic vena cava. Intravascular ultrasound probe was advanced over the right femoral access wire and a quart of pullback performed of the IVC, right common iliac vein, right external iliac vein. This revealed chronic total occlusion and chronic thrombus in the vena cava and the entirety of the common iliac vein with multiple areas of stenosis and chronic thrombus in the external iliac vein down to the mid common femoral vein. The ultrasound probe was then withdrawn and advanced via the left femoral access wire and recorded pullback performed of the IVC, left common iliac vein, left external leg vein. This again revealed inferior vena cava occlusion with chronic thrombus as well as chronic thrombus in total occlusion in the superior aspect of the common iliac vein with patent inferior aspect though with significant chronic mural thrombus and areas of stenosis. The external iliac vein also had irregularity and stenosis of greater than 75% at its superior aspect with return to normal caliber in the inferior aspect. A pair of 10 mm x 40 Bard Hickman angioplasty balloons were then advanced via each of the femoral sheath simultaneously and inflated to nominal for multiple inflations across the length of the treatment zone from inferior vena cava to right common femoral on the right and external iliac on the left. Ultrasound probe was then readvanced and length measurements of the intended treatment zone were obtained. Next a pair of 14 mm x 40 Bard [place] angioplasty balloons were advanced simultaneously via each of the femoral access sheaths and inflated to nominal across the entirety of the vena cava and common iliac vein areas of occlusion and stenosis. A pair of [employer] wallstents 16 mm x 90 were then advanced via each of the femoral access sheath and centered at the vena cava filter. These were then deployed simultaneously maintaining alignment at the proximal edge. The 14 mm angioplasty balloons were then readvanced and post dilation performed along the entirety of the stented segment. Next a Bard Venovo 12 x 80 was advanced via the left femoral access sheath and deployed in the proximal external iliac vein. This was then postdilated with the 10 mm angioplasty balloon. A Bard Venovo 14 x 80 was then advanced via the left femoral access sheath with satisfactory overlap into the initially placed Wallstent superiorly and the Venovo inferiorly. This was then deployed with satisfactory positioning. Finally a Bard Venovo 14 x 160 was advanced via the right femoral access sheath with satisfactory overlap into the initially placed Wallstent and distal completion coverage of the treatment zone. This was then deployed in satisfactory position. Each of the 14 mm the Venovo stents were then postdilated with a 14 mm [place] balloons along the entirety of the length. Completion venogram revealed satisfactory resolution of the areas of stenosis and occlusion with brisk contrast transit through the stented segments and into the vena cava outflow. There was no significant residual contrast transit into any of the pelvic or lower abdominal collateral vessels. There is no residual stenosis and no extravasation or dissection. The intravascular ultrasound probe was then first advanced via the right femoral access sheath and recorded pullb ack performed of the IVC, right common iliac vein, right external leg vein which revealed satisfactory stent expansion with good wall apposition and no residual stenosis or compression. The probe was then withdrawn and advanced via the left femoral access sheath and recorded pullback performed of the IVC, left common iliac vein, left external leg vein. This again revealed satisfactory stent expa nsion with good wall position and no residual stenosis or compression. Catheters and wires were then withdrawn and 2-0 silk pursestrings placed each of the femoral access sites. The sheath was then withdrawn and manual pressure held for 5 minutes until hemostasis was obtained. Patient was then taken to the recovery room with anticipated observation in the PCU. Surgical Findings: see above Complications Complications: No
[2025-01-07] MEDS: HEPARIN/D5w 25,000 UNITS 25,000 UNITS/250 ML IV.SOLN. 5 UNITS CONT INF (11:00)
--- NOTE | 2025-01-07 11:25 | PCM.POST.ANE ---
Anesthesia: Postop Eval I Current Vital Signs Temperature: 97.1 F Pulse Rate: 86 Blood Pressure: 126/82 Respiratory Rate: 18 Pulse Ox: 100 Oxygen Delivery Method: Simple Mask Oxygen Flow Rate (L/min): 6 Assessment Airway patent: Yes Spontaneous unlabored respirations: Yes Mental status: Awake and Calm nausea: No Vomiting: No Anesthesia Complication: No Fluid Hydration Crystalloid volume administer (ml): 1,500 Total IV fluid infused: 1,500 Progress Note Anesthesia document: Postop Eval 1 completed: Yes
--- NOTE | 2025-01-07 12:22 | POSTOPAN2_ITS ---
Anesthesia Postop Eval I Sum Postop Eval Completion status Anesthesia document: Postop Eval 1 completed: Yes Anesthesia Postop Eval I Summary Anesthesia Postop Eval I Summary: Anesthesia Postop Eval I: Assessment Summary Airway patent Yes 01/07/25 11:26 [email or web address] Spontaneous unlabored Yes 01/07/25 11:26 [email or web address] respirations Mental status Awake,Calm 01/07/25 11:26 [email or web address] nausea No 01/07/25 11:26 [email or web address] [email or web address] Vomiting No 01/07/25 11:26 [email or web address] Anesthesia Postop Eval I: Fluid Summary Crystalloid volume administer 1,500 01/07/25 11:26 [email or web address] (ml) Colloids volume administered ( ml) Blood Product volume administered (ml) Total IV fluid infused 1,500 01/07/25 11:26 [email or web address] Anesthesia Postop Eval I: Summary Notes Anesthesia Complication No 01/07/25 11:26 [email or web address] Anesthesia Complication Comment: Post-operative progress note Anesthesia: Postop Eval II Evaluation Mental status: Awake Pain Level: 1 nausea: No Vomiting: No
--- NOTE | 2025-01-07 12:22 | PCM.POSTANE2 ---
Anesthesia Postop Eval I Sum Postop Eval Completion status Anesthesia document: Postop Eval 1 completed: Yes Anesthesia Postop Eval I Summary Anesthesia Postop Eval I Summary: Anesthesia Postop Eval I: Assessment Summary Airway patent Yes 01/07/25 11:26 [email or web address] Spontaneous unlabored Yes 01/07/25 11:26 [email or web address] respirations Mental status Awake,Calm 01/07/25 11:26 [email or web address] nausea No 01/07/25 11:26 [email or web address] Vomiting No 01/07/25 11:26 [email or web address] Anesthesia Postop Eval I: Fluid Summary Crystalloid volume administer 1,500 01/07/25 11:26 [email or web address] (ml) Colloids volume administered ( ml) Blood Product volume administered (ml) Total IV fluid infused 1,500 01/07/25 11:26 [email or web address] Anesthesia Postop Eval I: Summary Notes Anesthesia Complication No 01/07/25 11:26 [email or web address] Anesthesia Complication Comment: Post-operative progress note Anesthesia: Postop Eval II Evaluation Mental status: Awake Pain Level: 1 nausea: No Vomiting: No
--- NOTE | 2025-01-07 12:52 | ANES.CONFIRM ---
Anesthesia: Confirm Documents Multiple Procedures on Account (2) Confirmed Documents: Yes
[2025-01-07] MEDS: Acetaminophen 500 MG Tablet 1000 MG PO ×2 (13:39→21:42)
[2025-01-07] MEDS: Pregabalin 75 MG Capsule 150 MG PO ×2 (13:39→21:42)
[2025-01-07] MEDS: oxyCODONE 5 MG Tablet PO (13:39)
[2025-01-07] MEDS: Baclofen 10 MG Tablet PO ×2 (13:39→21:42)
[2025-01-07] MEDS: Dext 5%-0.45% NS 1,000 ML 100 ML IV (14:07)
[2025-01-07] MEDS: traMADol 50 MG Tablet PO ×2 (15:36→21:42)
--- NOTE | 2025-01-07 16:01 | CHAPLAIN ---
Type of Pastoral Visit _x__ Initial Visit ___ Follow-up Visit ___ On-call Visit ___ General Patient Visit ___ Spiritual Assessment ___ Family Conference ___ Bereavement ___ Rapid Response ___ Code Blue ___ Other (describe below) Pastoral Care Referral From _x__ Patient ___ Family ___ Nurse ___ Physician ___ Digitizer ___ Hand Baseball Sewer ___ Other (describe below) Sacrament/Intervention _x__ Active listening ___ Anointing ___ Roman Catholic ___ Bereavement ___ Communion _x__ Nneka exploration ___ _x__ Life review _x__ Prayer ___ Reconciliation ___ Sacrament of Sick _x__ Supportive presence ___ Wedding ___ Other (describe below) Pastoral Comments patient was seen recently in a previous visit but this was a different reason for admission; pt is pleased with the outcome of his heart procedure today; pt speaks of having a purpose given by God and so he must find it and do it; 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
[2025-01-07 16:09] LABS: ACT Activated Clotting Time 239 sec (74-137)
[2025-01-07 16:09] LABS: ACT Activated Clotting Time 227 sec (74-137)
[2025-01-07 16:09] LABS: ACT Activated Clotting Time 239 sec (74-137)
[2025-01-07] MEDS: Warfarin (BKC) 3 MG Tablet PO (18:13)
[2025-01-07 21:19] LABS: Partial Thromboplast Time 59.9 Seconds (24.1-36.2)
[2025-01-07] MEDS: Omega-3 Acid Ethyl Esters 1 GM Capsule PO (21:43)
[2025-01-08 02:30] VITALS: BP 124/67; PULSE 103; RESP 17; TEMP 37.5; O2SAT 95
[2025-01-08] MEDS: traMADol 50 MG Tablet PO ×3 (02:31→13:07)
[2025-01-08 04:41] LABS: Absolute Neutrophil Count 8.9 X10^3/uL (2.0-7.7); Basophil# 0.04 X10^3/uL; Basophil% 0.3 % (0-1); Eosinophil# 0.12 X10^3/uL; Hemoglobin 12.5 g/dL (13.0-16.5); Lymphocyte % 13.6 % (19-41); Mean Corp Hgb Conc 32.9 g/dL (32-36); Mean Corpuscular Volume 94.3 fL (80-94); Mean Platelet Vol. 9.3 fl (6.2-12.0); Monocyte# 1.03 X10^3/uL; Monocyte% 8.8 % (0-10); NRBC Flagged by Analyzer 0 % (0-5); Neutrophil # 8.88 X10^3/uL (2.7-7.7); Neutrophil % 75.8 % (47-70); Platelet Count 309 K/mm3 (150-450); RBC Distribution Width CV 15.7 % (11.6-14.6); RBC Distribution Width SD 54.1 fl (35.1-43.9); Red Blood Count 4.03 M/mm3 (4.6-6.2); White Blood Count 11.7 K/mm3 (4.4-11.0)
[2025-01-08 05:00] LABS: Anion Gap 11 (5-15); BUN 6 mg/dL (4-19); BUN/Creat Ratio 10.6 RATIO (10-20); Calcium,Total 8.4 mg/dL (7.6-11.0); Chloride 104 mmol/L (98-108); Creatinine, Serum 0.58 mg/dL (0.70-1.20); EST Glomerular Filtration Rate 107 (>60); Estimated Creatinine Clearance 104.48 ml/min (50-250); Glucose 117 mg/dL (70-99); Potassium 3.8 mmol/L (3.3-5.1); Sodium Level 137 mmol/L (133-145)
[2025-01-08 05:07] VITALS: BMI 45.1
[2025-01-08] MEDS: Omega-3 Acid Ethyl Esters 1 GM Capsule PO ×2 (05:17→13:07)
[2025-01-08] MEDS: Acetaminophen 500 MG Tablet 1000 MG PO ×2 (05:18→13:06)
[2025-01-08] MEDS: Baclofen 10 MG Tablet PO ×2 (05:18→13:06)
[2025-01-08] MEDS: Pregabalin 75 MG Capsule 150 MG PO ×2 (05:18→13:06)
[2025-01-08 06:18] LABS: International Normalized Ratio 1.5; Partial Thromboplast Time 53.2 Seconds (24.1-36.2); Prothrombin Time (Protime)PT. 18.1 SECONDS (11.7-14.9)
--- NOTE | 2025-01-08 08:40 | PCM.DC.SUM ---
Providers Date of Admission: 01/07/25 Primary Care Physician: Dr. Patricia Garcia, DO Reason For Visit: Venogram Possible Stenting Illiac Veins/IVC, Cath Medications at Discharge Home Medications omega-3 fatty acids 500 mg capsule (Fish Oil) 1,000 mg PO TID supplement 08/27/15 baclofen 10 mg tablet 10 mg PO Q8H Muscle Spasm 04/14/22 niacin 50 mg tablet 25 mg PO DAILY Check with primary doctor 04/14/22 phenytoin sodium extended 100 mg capsule (Dilantin Extended) 200 mg PO DAILY Check with primary doctor 04/14/22 pregabalin 75 mg capsule (Lyrica) 150 mg PO TID pain control 04/14/22 turmeric root extract 500 mg capsule 1,000 mg PO DAILY supplement 04/14/22 coenzyme Q10 100 mg capsule (CoQ-10) 100 mg PO DAILY Check with primary doctor 07/02/22 ergocalciferol (vitamin D2) 1,250 mcg (50,000 unit) capsule (Vitamin D2) 1,250 mcg PO WE Check with primary doctor 07/02/22 phenytoin sodium extended 100 mg capsule (Dilantin Extended) 100 mg PO QHS Check with primary doctor 07/02/22 aspirin 81 mg chewable tablet 81 mg PO BREAKFAST #0 tabs 12/08/22 oxycodone 5 mg tablet 5 mg PO Q6H PRN PRN Pain Score 4-10 3 days #20 tabs 12/08/22 tramadol 50 mg tablet 50 mg PO Q8H pain 12/07/24 warfarin 3 mg tablet 3 mg PO MOTUWETHFR 12/07/24 warfarin 5 mg tablet 4 mg PO SUSA 12/07/24 furosemide 20 mg tablet 20 mg PO DAILY #30 tabs 12/11/24 acetaminophen 500 mg tablet 1,000 mg (2 x 500 mg) PO Q8 PRN #0 tabs 01/08/25 enoxaparin 120 mg/0.8 mL subcutaneous syringe 120 mg (0.8 mL) subcut Q12 7 days #11.2 mL 01/08/25 Hospital Course Summary of Care Provided Hospital Course: Mr. Perry Love is a 69 y/o male who underwent venogram with bilateral iliac vein and IVC angioplasty and stenting on 01/07/25; postoperatively, he was routinely admitted to the PCU for observation and heparin bridge. I saw patient this morning and he complained of some expected discomfort at the groin access sites and some pain associated with his chronic lower leg wounds; pain is well controlled with oral medications. He has been on therapeutic heparin overnight; Hgb stable at 12.5 this morning and no bleeding/hematoma at the bilateral groin access sites. He has tolerated normal diet and is voiding without difficulty. He has HHC in place. He has scheduled follow-up at the wound center for his lower extremity wounds. He will be discharged to home on his usual Coumadin dose and Lovenox for bridging; INR will be checked via [facility] in 2 days. He has scheduled follow-up in our office. Physical Exam Const oriented x3 and no apparent distress Resp normal respiratory effort Cardio regular rate and regular rhythm Extremity Extremity Narrative: KATE wraps to bilateral lower legs; edema noted, soft to palpation Bilateral groin access sites with dry gauze dressing overlying; no drainage; no hematoma; soft and nontender to palpation. Skin Wounds: wounds noted other BLE lower legs, chronic ulcerations Weight / BMI Weight Weight: 263 lb 0.183 oz Body Mass Index (BMI) 45.1 ABG / Lab / Microbiology Data 01/08/25 03:50 01/08/25 03:50 Laboratory: Laboratory Results - last 24 hr 01/07/25 07:57: Activated Clotting Time 227 H 01/07/25 08:32: Activated Clotting Time 239 H 01/07/25 09:08: Activated Clotting Time 239 H 01/07/25 20:40: APTT 59.9 H 01/08/25 03:50: WBC 11.7 H, RBC 4.03 L, Hgb 12.5 L, Hct 38.0 L, MCV 94.3 H, MCH 31.0, MCHC 32.9, RDW Std Deviation 54.1 H, RDW Coeff of [place] 15.7 H, Plt Count 309, MPV 9.3, Immature Gran % (Auto) 0.500, Neut % (Auto) 75.8 H, Lymph % (Auto) 13.6 L, [place] % (Auto) 8.8, Eos % (Auto) 1.0, Baso % (Auto) 0.3, Absolute Neuts (auto) 8.9 H, Absolute Lymphs (auto) 1.60, Nucleated RBC % 0, APTT 48.0 H, Sodium 137, Potassium 3.8, Chloride 104, Carbon Dioxide 22.0, Anion Gap 11, BUN 6, Creatinine 0.58 L, Estim Creat Clear Calc 104.48, Est GFR (MDRD) Non-Af 107, BUN/Creatinine Ratio 10.6, Glucose 117 H, Calcium 8.4 01/08/25 05:51: PT 18.1 H, INR 1.5, APTT 53.2 H D/C Instructions Discharge Diet: No restrictions May shower in (days): 1 Weight Bearing Status: Weight bearing as tolerated Lifting Restricted to (Lbs): 20 Lifting Restrictions: Do not lift greater than 20 pounds for 2 weeks Call your doctor if your incision/area has: Sudden Increased Bleeding, Increased Pain/ Swelling and Foul Smelling Discharge Call your doctor if you observe: Fever of 101 or Higher and Uncontrolled pain Remove Dressing in: 1 day DC O2, CPAP, BIPAP Needs Home O2 Discharge instructions: No Additional Instructions: You will be taking your usual Warfarin dose. However, it can take a few days to a week before your INR returns to therapeutic range. Until then, you will also need to administer Lovenox to prevent clotting. You have been prescribed Lovenox 120mg to be injected subcutaneously every 12 hours. Please continue this until your INR is back to between 2 and 3 and you are instructed to stop by our office or your PCP. Meaningful Use Info Meaningful Use Meaningful Use Diagnoses (Choose all that apply): None applicable Ischemic Stroke Statin Dosing Therapy Reference: STATIN DOSE THERAPY REFERENCE: * Patients > 75 years receive moderate or high dose statin therapy. * Patients 75 years or YOUNGER should receive HIGH intensity statin dose unless contraindicated. You will be required to document reason for non-treatment if statin daily dose does not meet guidelines. HIGH DOSE STATIN THERAPY DAILY Atorvastatin > than or = to 40 mg Rosuvastatin > than or = to 20 mg Amlodipine + Atorvastatin > than or = to 2.5/40 mg Ezetimibe + Simvastatin 10/80 mg Simvastatin 80mg Discharge Plan Admission Admit Date/Time: 01/07/25 10:48 Attending Provider: Wei Allison Primary Care Provider: Patricia Garcia Instructions Additional Instructions / Restrictions: You will be taking your usual Warfarin dose. However, it can take a few days to a week before your INR returns to therapeutic range. Until then, you will also need to administer Lovenox to prevent clotting. You have been prescribed Lovenox 120mg to be injected subcutaneously every 12 hours. Please continue this until your INR is back to between 2 and 3 and you are instructed to stop by our office or your PCP. Discharge Orders/Prescriptions Prescriptions: New acetaminophen 500 mg Tablet 1,000 mg PO Q8 PRNQty: 0 0RF enoxaparin 120 mg/0.8 mL Syringe 120 mg subcut Q12 7 Days Qty: 11.2 0RF Continued phenytoin sodium extended [Dilantin Extended] 100 mg capsule 200 mg PO DAILY niacin 50 mg tablet 25 mg PO DAILY Fish Oil 500 MG capsule 1,000 mg PO TID turmeric root extract 500 mg capsule 1,000 mg PO DAILY baclofen 10 mg tablet 10 mg PO Q8H pregabalin [Lyrica] 75 mg capsule 150 mg PO TID phenytoin sodium extended [Dilantin Extended] 100 mg Capsule 100 mg PO QHS ergocalciferol (vitamin D2) [Vitamin D2] 1,250 mcg (50,000 unit) Capsule 1,250 mcg PO WE coenzyme Q10 [CoQ-10] 100 mg Capsule 100 mg PO DAILY aspirin 81 mg Tablet,Chewable 81 mg PO BREAKFAST Qty: 0 0RF oxycodone 5 mg Tablet 5 mg PO Q6H PRN PRN (Reason: Pain Score 4-10) 3 Days Qty: 20 0RF warfarin 3 mg tablet 3 mg PO MOTUWETHFR tramadol 50 mg tablet 50 mg PO Q8H Rx Instructions: takes meds 06,14,22, then also at 2am warfarin 5 mg tablet 4 mg PO SUSA furosemide 20 mg tablet 20 mg PO DAILY Qty: 30 2RF Referrals / Follow Up: Patricia Garcia DO [Primary Care Provider] - Disposition Disposition (needs filled in before D/C Order can be placed): Home Health Service Charges/Coding Visit Charges Inpatient E&M: 89098 Disch Hosp
[2025-01-08 08:45] VITALS: O2SAT 95
[2025-01-08] MEDS: Aspirin 81 MG TAB.CHEW PO (09:23)
[2025-01-08] MEDS: Furosemide 20 MG Tablet PO (09:24)
[2025-01-08] MEDS: Phenytoin Na 100 MG Capsule 200 MG PO (09:24)
[2025-01-08] MEDS: Enoxaparin 120 MG/0.8 ML Syringe SC (09:24)
[2025-01-08 09:34] VITALS: BP 119/67; PULSE 85; RESP 16; TEMP 36.8; O2SAT 97
[2025-01-08 11:11] LABS: Partial Thromboplast Time 49.1 Seconds (24.1-36.2)
--- NOTE | 2025-01-08 11:19 | PHA.DC_ITS ---
Pharmacy [facility] has performed discharge medication reconciliation and counseling for this patient. 1. ENOXAPARIN 120MG SC Q12 The patient's discharge medication list was reviewed for discrepancies and discrepancies were resolved. The patient was counseled on the following discharge medications and changes in medications for homegoing were reviewed. The Reason for Use, instructions for use, and potential side effects were reviewed for all new medications. The patient's questions regarding all of their medications were answered. The patient was able to verbally demonstrate an understanding of their discharge medications. Medications at Discharge Home Medications omega-3 fatty acids 500 mg capsule (Fish Oil) 1,000 mg PO TID supplement 08/27/15 baclofen 10 mg tablet 10 mg PO Q8H Muscle Spasm 04/14/22 niacin 50 mg tablet 25 mg PO DAILY supplement 04/14/22 phenytoin sodium extended 100 mg capsule (Dilantin Extended) 200 mg PO DAILY seizures 04/14/22 pregabalin 75 mg capsule (Lyrica) 150 mg PO TID pain control 04/14/22 turmeric root extract 500 mg capsule 1,000 mg PO DAILY supplement 04/14/22 coenzyme Q10 100 mg capsule (CoQ-10) 100 mg PO DAILY vitamin 07/02/22 ergocalciferol (vitamin D2) 1,250 mcg (50,000 unit) capsule (Vitamin D2) 1,250 m cg PO WE vitamin 07/02/22 phenytoin sodium extended 100 mg capsule (Dilantin Extended) 100 mg PO QHS seizures 07/02/22 aspirin 81 mg chewable tablet 81 mg PO BREAKFAST heart health #0 tabs 12/08/22 oxycodone 5 mg tablet 5 mg PO Q6H PRN PRN Pain Score 4-10 3 days #20 tabs 12/08/22 tramadol 50 mg tablet 50 mg PO Q8H pain 12/07/24 warfarin 3 mg tablet 3 mg PO MOTUWETHFR blood thinner 12/07/24 warfarin 5 mg tablet 4 mg PO SUSA blood thinner 12/07/24 furosemide 20 mg tablet 20 mg PO DAILY diuretic #30 tabs 12/11/24 acetaminophen 500 mg tablet 1,000 mg (2 x 500 mg) PO Q8 PRN #0 tabs 01/08/25 enoxaparin 120 mg/0.8 mL subcutaneous syringe 120 mg (0.8 mL) subcut Q12 7 days #11.2 mL 01/08/25
--- NOTE | 2025-01-08 13:57 | CASEMGMT ---
Patient has order for discharge. Serena is discharging on Lovenox, RON GALEANO called [facility], copay is $106. Per Rohini in [facility] they are transferring to [facility] to bill through patient's insurance. RON GALEANO called [facility] and copay is $332.00 as patient had deductible. RON GALEANO called [facility] and requested prescript be transferred back, Kd to call [facility]. RON GALEANO in to update patient regarding Lovenox cost at [facility] and [facility]. Patient states he would prefer to get script filled at [facility]. Patient states he is active with [facility] for SN. Patient denies further needs or concerns at discharge. Patient had no further questions. RON GALEANO called [facility], no new order needed as patient is in observation. Resumption of care planned for . RON GALEANO updated discharge plan.
[2025-01-08 14:40] VITALS: BP 102/54; PULSE 82; RESP 16; TEMP 36; O2SAT 98
== END 2025-01-08 10:30 | disposition home health service (06) ==
LOC: SDC 11:30 → PCU 11:30
PROVIDERS: Anesthesiology; Admitting Provider Surgery Trauma Surgery; PCP Family Medicine; Referring Provider Surgery Trauma Surgery; Visit Provider Surgery Trauma Surgery
DX: I82.220 Acute embolism and thrombosis of inferior vena cava (principal); L97.929 Non-pressure chronic ulcer of unspecified part of left lower leg with unspecified severity; L97.919 Non-pressure chronic ulcer of unspecified part of right lower leg with unspecified severity; I82.221 Chronic embolism and thrombosis of inferior vena cava; I77.1 Stricture of artery; Z95.5 Presence of coronary angioplasty implant and graft; I87.2 Venous insufficiency (chronic) (peripheral); Z82.49 Family history of ischemic heart disease and other diseases of the circulatory system; I10 Essential (primary) hypertension; Z79.01 Long term (current) use of anticoagulants; R60.0 Localized edema
CPT/HCPCS: 36010; 36415; 36416; 37238; 37239; 37252; 37253; 75825; 76937; 80048; 85025; 85027; 85347; 85610; 85730; 86850; 86900; 86901; 93005; 94668; 96365; 96366; 96372; 99221; 99252; C1753; C1769; C1876; C1887; C1894; Q9967; A4216; C1725; G0378; G0463; J2405

== ENCOUNTER 2025-02-01 09:00 | Outpatient (RCR) | payer MEDICARE, OTHER, SELFPAY ==
[2025-01-08 00:12] VITALS: BP 148/84; PULSE 67; RESP 18; TEMP 35.7
[2025-01-11 09:21] VITALS: BP 132/69; PULSE 79; RESP 18; TEMP 35.7
--- NOTE | 2025-01-11 14:32 | PN.PCM_ITS ---
History of Present Illness Date of Service: 01/11/25 Chief Complaint: venous ulcers of left lower extremity History of Wound: Mauricio is a 69 yo gentleman who is here today for evaluation of ulcers to to his bilateral lower legs. He has been treated multiple times in the past at the wound healing center for similar ulcers. The left LE ulcer started after he developed increased swelling and blisters of left leg in October and the right leg started sometime at the end of October. He was seen at PCP's office a culture was taken and it was resistant to several antibiotics. He was treated initially with Levaquin but had myalgias and then was treated with doxycycline which he finished 2 days ago. He denies improvement and is having swelling to his left calf and thigh. He has been having swelling to both lower extremities for many years and it has worsened over the last few months. He has not been compliant with compression. He has had increased pain especially in the left leg. He has clear yellow drainage and redness without odor or warmth. He is anti- coagulated on coumadin. He has been washing with Dial soap and witch ifrah. He had been using Collagen at times and using Calcium Alginate and covering with ABD pads during October. He was treated with 3M compression and Aquacel Ag. He was referred to the wound center for ongoing treatment. His ulcers have moderate to heavy drainage. He was in the hospital from 11/30/22 until 12/09/22 for treatment of cellulitis and edema. He underwent treatment with Vancomycin and IV lasix and compression. Discharged on 12/09/22. He returned to his assisted living apartment on Tuesday12/21/22. Subjective Subjective Mauricio is a 69-year-old male with longstanding history of chronic venous ulceration to the left lower extremity and now a right lower extremity venous ulcer that is nearly circumferential. Wound culture from 12/07/24 was positive for Providencia stuartii, Vancomycin resistant E. Faecalis, Corynebacterium striatum and completed Augmentin orally. His edema is better this week and he tolerated the 3M wraps. His ulcers are generally the same this week. He is using KATE wraps for compression. 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 He continues to use his lymphedema pumps but continues to have pain with use of these pumps. 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 Objective Data Objective Data Vital Signs: Vital Signs Temp Pulse Resp BP O2 Del Method 96.2 F L 79 18 132/69 H Room Air 01/11/25 09:21 01/11/25 09:21 01/11/25 09:21 01/11/25 09:21 01/11/25 09:21 Oxygen Delivery Method Room Air Physical Exam Const alert, oriented x3 and no apparent distress General Appearance: cooperative and comfortable HEENT normocephalic and head/scalp atraumatic Lymph Lymphatic: lymphedema moderate Resp normal respiratory effort Effort and Inspection: able to speak in complete sentences Cardio regular rate and regular rhythm Extremity Extremity Narrative: His ulcers are painful and larger and the right lower leg remains more swollen than his left General Extremity: edema bilateral lower extremity Details: severe Skin General Skin Exam: venous stasis and dermatitis Wounds: wounds noted Wound Narrative: as in clinical panel, + devitalized tissue, there is increased depth, + granulation tissue bilateral ulcer with good granulation and moderate to heavy slough prior to debridement and minimal post debridement Psych mental status grossly normal, thought process normal, cooperative and affect normal Debridement Note Debridement Note Wound debrided: left medial LE ulcer Laterality: Left Type of Debridement: Excisional debridement Anesthesia Used: 5% Lidocaine Gel and Cetacaine Depth: Down to and including healthy tissue and in the subcutaneous layer Percentage of wound debrided: 100 Instrument Used: - (Misonix ultrasonic debridement) Tissue Removed: Yellow slough, devitalized tissue Severity: Fat Layer Exposed Amount of bleeding with debridement: Mild Bleeding Controlled with: Compression and gauze Patient tolerated procedure: Patient tolerated procedure well Post-Debridement Measurements and Additional Note: Post-Debridement Measurements/Treatment DEBBIE - Nurse 1 - General Ulcer Assessment Start: 01/11/25 09:21 Freq: Status: Active Protocol: ONDINA Activity Type Activity Date Activity User E-sign Co-sign Detail Recorded Client Recorded Date Recorded By Document 01/11/25 09:21 KW [id number] 01/11/25 09:46 KW 01/11/25 09:21 DEBBIE - Today's Visit Information Type of service Follow-up Visit (Physician/[employer] ) Arrival Mode Ambulatory Patient Identification Verified (Name & Yes ) Vital Signs Temperature (97.8 F-99.1 F) 96.2 F L Temperature Source Temporal Pulse Rate (60-100) 79 Pulse Location Monitor Respiratory Rate (12-18) 18 Respiratory rate source Observation Oxygen Delivery Method Room Air Blood Pressure (90/60-120/80) 132/69 H Blood Pressure Mean (mm Hg) 90 Source Monitor Position Semi-Fowlers Blood Pressure Location Right Arm History Since Last Visit- (Skip if this is Patient's initial visit) Have you changed medications since your Yes last visit? Any new allergies or adverse reactions No Had a fall/change in ADL's that may No increase risk of falls Signs or symptoms of abuse and/or No neglect since last visit Have you been in the hospital since your Yes last visit? Has dressing in place as prescribed Yes Has compression in place as prescribed Yes Has offloadiing in place as prescribed N/A Experienced any changes in pain level or No management Left Footwear Regular Shoe Right Footwear Regular Shoe Pain Scale: 0-10 Numeric Is Patient Pain Free? Yes WC - Nurse 1 - General Ulcer Measurement Start: 01/11/25 09:21 Freq: Status: Active Protocol: Activity Type Activity Date Activity User E-sign Co-sign Detail Recorded Client Recorded Date Recorded By Document 01/11/25 09:21 KW [id number] 01/11/25 09:46 KW 01/11/25 09:21 Wound Center Nurse 1 #24 Left Lateral Leg -Current Size (cm) - Length 0.1 -Current Size (cm) - Width 0.1 -Current Size (cm) - Depth 0 -Total Square Cm 0.01 -Date of Last Picture (Recall this 01/11/25 field) -Exudate Amt Medium -Exudate Type Serosanguineous -Wound Margin Distinct, Outline Attached -Granulation Amt Small (1-33%) -Granulation Quality Red -Necrosis Amt Large (67-100%) -Necrotic Tissue Type Eschar -Texture (Marie-wound Skin Appearance) Assessed -Moisture (Marie-wound Skin Appearance) Assessed -Color (Marie-wound Skin Appearance) Assessed, Erythema, Hemosiderin Staining -Temperature (Marie-wound Skin No Abnormality Appearance) (Pt Warm) -Ulcer Cleansing Soap and Water -Foul Odor after Cleansing No -Anesthetic Used 5% Lidocaine Gel -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) did not measure during nurse one *#22 R Medial Leg circumferential -Current Size (cm) - Length 0.1 -Current Size (cm) - Width 0.1 -Current Size (cm) - Depth 0 -Total Square Cm 0.01 -Date of Last Picture (Recall this 01/11/25 field) -Exudate Amt Large -Exudate Type Serosanguineous -Wound Margin Distinct, Outline Attached -Granulation Amt Small (1-33%) -Granulation Quality Red -Necrosis Amt Large (67-100%) -Necrotic Tissue Type Adherent Slough -Texture (Marie-wound Skin Appearance) Assessed -Moisture (Marie-wound Skin Appearance) Assessed, Weeping -Color (Marie-wound Skin Appearance) Assessed, Erythema, Hemosiderin Staining -Temperature (Marie-wound Skin No Abnormality Appearance) (Pt Warm) -Tenderness on Palpation (Marie-wound No Skin Appearance) -Ulcer Cleansing Soap and Water -Foul Odor after Cleansing No -Anesthetic Used 5% Lidocaine Gel -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) did not measure during nurse one #18 Left medial LE cluster -Current Size (cm) - Length 0.1 -Current Size (cm) - Width 0.1 -Current Size (cm) - Depth 0 -Total Square Cm 0.01 -Date of Last Picture (Recall this 01/11/25 field) -Exudate Amt Large -Exudate Type Serosanguineous -Wound Margin Distinct, Outline Attached -Granulation Amt Small (1-33%) -Granulation Quality Red -Necrosis Amt Large (67-100%) -Necrotic Tissue Type Adherent Slough -Texture (Marie-wound Skin Appearance) Assessed -Moisture (Marie-wound Skin Appearance) Assessed, Weeping -Color (Marie-wound Skin Appearance) Assessed, Erythema, Hemosiderin Staining -Temperature (Marie-wound Skin No Abnormality Appearance) (Pt Warm) -Tenderness on Palpation (Marie-wound No Skin Appearance) -Ulcer Cleansing Soap and Water -Foul Odor after Cleansing No -Anesthetic Used 5% Lidocaine Gel -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) did not measure during nurse one WC - Nurse 2 - General Ulcer CM Notes Start: 01/11/25 09:21 Freq: Status: Active Protocol: Activity Type Activity Date Activity User E-sign Co-sign Detail Recorded Client Recorded Date Recorded By Document 01/11/25 10:18 DS [id number] 01/11/25 10:28 DS 01/11/25 10:18 Wound Center Nurse 2 #24 Left Lateral Leg -Time 10:15 -Correct Patient Yes -Correct Side, Site, Position Yes -Correct Procedure Yes -Procedure Performed Yes -Type of Procedure Debridement -Clinical Debridement Subcutaneous -Tissue Removed Subcutaneous -Post Debridement (cm) - Length 3.2 -Post Debridement (cm) - Width 2.3 -Post Debridement (cm) - Depth 0.1 -Total Square (Post) (cm) 7.36 -Area of Debridement (cm) - Length 3.2 -Area of Debridement (cm) - Width 2.3 -Total Square (Area) (cm) 7.36 -Tunneling No -Undermining/Tunneling No -Circular Undermining No -Wound/Ulcer Outcome Not Healed -Ulcer Cleansing Rinsed/ Irrigated with Saline -Foul Odor after Cleansing No -Bioengineered Tissue No -Bleeding Controlled with Pressure -Treatment Response Procedure Tolerated Well -Debridement - Subq, 1st 20sq cm Yes -Debridement, SubQ, ea addt'l 20sq cm 23 or part thereof *#22 R Medial Leg circumferential -Time 10:18 -Correct Patient Yes -Correct Side, Site, Position Yes -Correct Procedure Yes -Procedure Performed Yes -Type of Procedure Debridement -Clinical Debridement Subcutaneous -Tissue Removed Subcutaneous -Post Debridement (cm) - Length 12.5 -Post Debridement (cm) - Width 28.0 -Post Debridement (cm) - Depth 0.1 -Total Square (Post) (cm) 350.00 -Area of Debridement (cm) - Length 12.5 -Area of Debridement (cm) - Width 28.0 -Total Square (Area) (cm) 350.00 -Tunneling No -Undermining/Tunneling No -Circular Undermining No -Wound/Ulcer Outcome Not Healed -Ulcer Cleansing Rinsed/ Irrigated with Saline -Foul Odor after Cleansing No -Bioengineered Tissue No -Bleeding Controlled with Pressure -Treatment Response Procedure Tolerated Well -Debridement - Subq, 1st 20sq cm No #18 Left medial LE cluster -Time 10:15 -Correct Patient Yes -Correct Side, Site, Position Yes -Correct Procedure Yes -Procedure Performed Yes -Type of Procedure Debridement -Clinical Debridement Subcutaneous -Tissue Removed Subcutaneous -Post Debridement (cm) - Length 9.0 -Post Debridement (cm) - Width 13.5 -Post Debridement (cm) - Depth 0.1 -Total Square (Post) (cm) 121.50 -Area of Debridement (cm) - Length 9.0 -Area of Debridement (cm) - Width 13.5 -Total Square (Area) (cm) 121.50 -Tunneling No -Undermining/Tunneling No -Circular Undermining No -Wound/Ulcer Outcome Not Healed -Ulcer Cleansing Rinsed/ Irrigated with Saline -Foul Odor after Cleansing No -Bioengineered Tissue No -Bleeding Controlled with Pressure -Treatment Response Procedure Tolerated Well -Debridement - Subq, 1st 20sq cm No Pain Scale: 0-10 Numeric Is Patient Pain Free? No ble -Description Aching -Intensity 5 -Duration (hours) Chronic -Pain Behavior Guarding -Pain Aggravating Factors Debridement -Alleviating Factors/Interventions Will continue to monitor, Emotional Support -Comments cetacaine spray used - Nurse 3 - General Ulcer D/C NN Start: 01/11/25 09:21 Freq: Status: Active Protocol: Activity Type Activity Date Activity User E-sign Co-sign Detail Recorded Client Recorded Date Recorded By Document 01/11/25 10:58 [id number] 01/11/25 11:00 RB 01/11/25 10:58 Wound Care Center Nurse 3 #24 Left Lateral Leg -Ulcer Cleansing Rinsed/ Irrigated with Saline -Primary Dressing Applied Aquacel Extra -Other Dressing ABD -Primary Dressing Covered/Secured with Dry Gauze & Roll Gauze, Secured with Tape -Aquacel Extra 1 *#22 R Medial Leg circumferential -Primary Dressing Applied Aquacel Extra, Optilok 6.5x10 -Primary Dressing Covered/Secured with Dry Gauze & Roll Gauze, Secured with Tape -Aquacel Extra 2 -Optilok 6.5x10 2 #18 Left medial LE cluster -Other Dressing aquacel extra/ ABD -Primary Dressing Covered/Secured with Dry Gauze & Roll Gauze, Secured with Tape BLE -Other kate Treatment Response Procedure Tolerated Well Pain Scale: 0-10 Numeric Is Patient Pain Free? Yes WC - Visit Discharge Discharge Condition Stable Ambulatory Status Ambulatory, Walker Transportation Private Auto Medication Reconcilliation completed & No provided to patient/care provider Clinical Summary of Care Provided Yes Additional Wound Wound debrided: right lateral leg Laterality: Right Type of Debridement: Excisional debridement Anesthesia Used: 5% Lidocaine Gel and Cetacaine Depth: Down to and including healthy tissue and in the subcutaneous layer Percentage of wound debrided: 100 Instrument Used: - (Misonix ultrasonic debridement) Tissue Removed: Yellow slough, devitalized tissue Severity: Fat Layer Exposed Amount of bleeding with debridement: Mild Bleeding Controlled with: Compression and gauze Patient tolerated procedure: Patient tolerated procedure well Additional Wound Wound debrided: right medial leg Laterality: Right Type of Debridement: Excisional debridement Anesthesia Used: 5% Lidocaine Gel and Cetacaine Depth: Down to and including healthy tissue and in the subcutaneous layer Percentage of wound debrided: 100 Instrument Used: - (Misonix ultrasonic debridement) Tissue Removed: Yellow slough, devitalized tissue Severity: Fat Layer Exposed Amount of bleeding with debridement: Mild Bleeding Controlled with: Compression and gauze Patient tolerated procedure: Patient tolerated procedure well Assessment/Plan Assessment/Plan (1) Lymphedema: CODE(S): I89.0 - Lymphedema, not elsewhere classified (2) Hypertension: CODE(S): I10 - Essential (primary) hypertension QUALIFIERS: Hypertension type: primary hypertension Qualified Code(s): I10 - Essential (primary) hypertension (3) Hyperlipidemia: CODE(S): E78.5 - Hyperlipidemia, unspecified QUALIFIERS: Hyperlipidemia type: mixed hyperlipidemia Qualified Code(s): E78.2 - Mixed hyperlipidemia (4) History of DVT (deep vein thrombosis): CODE(S): Z86.718 - Personal history of other venous thrombosis and embolism (5) Venous insufficiency (chronic) (peripheral): CODE(S): I87.2 - Venous insufficiency (chronic) (peripheral) (6) Venous ulcer of left lower extremity with varicose veins: CODE(S): I83.029 - Varicose veins of left lower extremity with ulcer of unspecified site (7) Edema: CODE(S): R60.9 - Edema, unspecified QUALIFIERS: Edema type: unspecified Qualified Code(s): R60.9 - E tatum, unspecified (8) 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 At home wound-care instructions: Will use Circaid compression garments with super absorber to right LE and ABD to left LE changed every other day. Due to his chronic lymphedema and being unable to don traditional compression stockings and the presence of venous ulcers on his LE b/l, it is medically necessary for him to have Circaid compression garments. These are being ordered. I suspect he is not very compliant with his lymphedema pumps and not getting adequate compression with tubigrips. Due to the delayed progress in wound healing of his venous ulcers, we discussed applying for advanced wound healing product for healing his ulcer. Due to the size of his ulcer, Theraskin application approval was requested from his insurance as it is medically necessary for salvaging his limb and healing his ulcer. He underwent 2 applications of Theraskin to this ulcer. Since application of Theraskin he has had much improvement in epithelialization of his ulcer even though the overall size is not significantly changed there is progress. Off-loading: The patient was instructed to avoid pressure and friction on the affected areas. Reposition every 2 hours at minimum. Avoid prolonged standing and/or dangling of legs. When seated, feet should be elevated at chest level. Frequent ambulation is encouraged. Encouraged lymphedema pump use. Diet: Patient encouraged to increase protein intake while taking caution to avoid high carbohydrate and/or sugar intake. Labs/cultures/imaging: Wound culture showed Pseudomonas, Escherichia hermannii, Raoultella planticola, Vancomycin Resist. E. faecalis, Alcaligenes faecalis ssp faeca, Staphylococcus cohnii urealyti and anaerobic bacteria on 06/15/24 and he completed on Levofloxacin and Augmentin. Wound culture taken today on right lateral ulcer which showed Raoultella planticola, Staph hemolyticus, staph epidermidis and morganella morganii but no anaeroobic bacteria, Levofloxacin and doxycyline were prescribed based on culture results. Labs ordered 10/19/2024. Vitamin D was low A1C 5.4% Wound culture from 12/07/24 was positive for Providencia stuartii, Vancomycin resistant E. Faecalis, Perry nebacterium striatum and completed Augmentin orally. Follow-up: Return in 1 week for wound care follow up and have dressing changed by home health Tuesday. Return sooner or report to the emergency room should symptoms worsen, or new symptoms arise. Note: [employer] speech recognition patient registration supervisor software was used to create portions of this document. Sound-alike and misspelled words, as well as other patient registration supervisor errors may be contained in the documentation.
--- NOTE | 2025-01-14 08:26 | WC ---
PHOTO 01/14/25 LEFT [facility]
--- NOTE | 2025-01-14 08:28 | WC ---
PHOTO 01/11/25 LEFT LATERAL LEG
--- NOTE | 2025-01-14 08:29 | WC ---
PHOTO 01/11/25 Alicia [facility]HOTRA
--- NOTE | 2025-01-14 08:30 | WC ---
PHOTO 01/11/25 RIGHT LEG CIRC
--- NOTE | 2025-01-14 08:31 | WC ---
PHOTO 01/11/25 RIGHT LEG CIRC
--- NOTE | 2025-01-14 08:32 | WC ---
PHOTO 01/11/25 RIGHT LEG CIRC
--- NOTE | 2025-01-15 10:44 | WC ---
PHOTO 01/14/25 LEFT LATERAL LEG
[2025-01-18 09:44] VITALS: BP 127/69; PULSE 64; RESP 18; TEMP 35.8
--- NOTE | 2025-01-18 14:25 | PN.PCM_ITS ---
History of Present Illness Date of Service: 01/18/25 Chief Complaint: venous ulcers of left lower extremity History of Wound: Mauricio is a 69 yo gentleman who is here today for evaluation of ulcers to to his bilateral lower legs. He has been treated multiple times in the past at the wound healing center for similar ulcers. The left LE ulcer started after he developed increased swelling and blisters of left leg in October and the right leg started sometime at the end of October. He was seen at PCP's office a culture was taken and it was resistant to several antibiotics. He was treated initially with Levaquin but had myalgias and then was treated with doxycycline which he finished 2 days ago. He denies improvement and is having swelling to his left calf and thigh. He has been having swelling to both lower extremities for many years and it has worsened over the last few months. He has not been compliant with compression. He has had increased pain especially in the left leg. He has clear yellow drainage and redness without odor or warmth. He is anti- coagulated on coumadin. He has been washing with Dial soap and witch ifrah. He had been using Collagen at times and using Calcium Alginate and covering with ABD pads during October. He was treated with 3M compression and Aquacel Ag. He was referred to the wound center for ongoing treatment. His ulcers have moderate to heavy drainage. He was in the hospital from 11/30/22 until 12/09/22 for treatment of cellulitis and edema. He underwent treatment with Vancomycin and IV lasix and compression. Discharged on 12/09/22. He returned to his assisted living apartment on Tuesday12/21/22. Subjective Subjective Mauricio is a 69-year-old male with longstanding history of chronic venous ulceration to the left lower extremity and now a right lower extremity venous ulcer that is nearly circumferential. Wound culture from 12/07/24 was positive for Providencia stuartii, Vancomycin resistant E. Faecalis, Corynebacterium striatum and completed Augmentin orally. His edema is better this week and he tolerated the 3M wraps. His ulcers are generally the same this week. He is using KATE wraps for compression. 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 He continues to use his lymphedema pumps but continues to have pain with use of these pumps. 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 Objective Data Objective Data Vital Signs: Vital Signs Temp Pulse Resp BP O2 Del Method 96.5 F L 64 18 127/69 H Room Air 01/18/25 09:44 01/18/25 09:44 01/18/25 09:44 01/18/25 09:44 01/18/25 09:44 Oxygen Delivery Method Room Air Physical Exam Const alert, oriented x3 and no apparent distress General Appearance: cooperative and comfortable HEENT normocephalic and head/scalp atraumatic Lymph Lymphatic: lymphedema moderate Resp normal respiratory effort Effort and Inspection: able to speak in complete sentences Cardio regular rate and regular rhythm Extremity Extremity Narrative: His ulcers are painful and the right lower leg remains more swollen than his left General Extremity: edema bilateral lower extremity Details: severe Skin General Skin Exam: venous stasis and dermatitis Wounds: wounds noted Wound Narrative: as in clinical panel, + devitalized tissue, there is increased depth, + granulation tissue bilateral ulcer with good granulation and moderate to heavy slough prior to debridement and minimal post debridement Psych mental status grossly normal, thought process normal, cooperative and affect normal Debridement Note Debridement Note Wound debrided: left medial LE ulcer Laterality: Left Type of Debridement: Excisional debridement Anesthesia Used: 5% Lidocaine Gel and Cetacaine Depth: Down to and including healthy tissue and in the subcutaneous layer Percentage of wound debrided: 100 Instrument Used: - (Misonix ultrasonic debridement) Tissue Removed: Yellow slough, devitalized tissue Severity: Fat Layer Exposed Amount of bleeding with debridement: Mild Bleeding Controlled with: Compression and gauze Patient tolerated procedure: Patient tolerated procedure well Post-Debridement Measurements and Additional Note: Post-Debridement Measurements/Treatment DEBBIE - Nurse 1 - General Ulcer Assessment Start: 01/11/25 09:21 Freq: Status: Active Protocol: ONDINA Activity Type Activity Date Activity User E-sign Co-sign Detail Recorded Client Recorded Date Recorded By Document 01/11/25 09:21 KW [id number] 01/11/25 09:46 KW Document 01/18/25 09:44 ALEX [id number] 01/18/25 10:10 KW 01/11/25 01/18/25 09:21 09:44 - Today's Visit Information Type of service Follow-up Visit Follow-up Visit (Physician/DISTRIBUTION SYSTEMS SERVICEPERSON (Physician/DISTRIBUTION SYSTEMS SERVICEPERSON ) ) Arrival Mode Ambulatory Ambulatory, Walker Patient Identification Verified (Name & Yes Yes ) Vital Signs Temperature (97.8 F-99.1 F) 96.2 F L 96.5 F L Temperature Source Temporal Temporal Pulse Rate (60-100) 79 64 Pulse Location Monitor Monitor Respiratory Rate (12-18) 18 18 Respiratory rate source Observation Observation Oxygen Delivery Method Room Air Room Air Blood Pressure (90/60-120/80) 132/69 H 127/69 H Blood Pressure Mean (mm Hg) 90 88 Source Monitor Monitor Position Semi-Fowlers Semi-Fowlers Blood Pressure Location Right Arm Right Arm History Since Last Visit- (Skip if this is Patient's initial visit) Have you changed medications since your Yes No last visit? Any new allergies or adverse reactions No No Had a fall/change in ADL's that may No No increase risk of falls Signs or symptoms of abuse and/or No No neglect since last visit Have you been in the hospital since your Yes No last visit? Has dressing in place as prescribed Yes Yes Has compression in place as prescribed Yes Yes Has offloadiing in place as prescribed N/A N/A Experienced any changes in pain level or No No management Left Footwear Regular Shoe Regular Shoe Right Footwear Regular Shoe Regular Shoe Pain Scale: 0-10 Numeric Is Patient Pain Free? Yes No ble -Intensity 6 -Alleviating Factors/Interventions Medication, Medicate when due,Inactivity/ Resting,Turning /Repositioning - Nurse 1 - General Ulcer Measurement Start: 01/11/25 09:21 Freq: Status: Active Protocol: Activity Type Activity Date Activity User E-sign Co-sign Detail Recorded Client Recorded Date Recorded By Document 01/11/25 09:21 KW [id number] 01/11/25 09:46 KW Document 01/18/25 09:44 KW [id number] 01/18/25 10:10 KW 01/11/25 01/18/25 09:21 09:44 Wound Center Nurse 1 #24 Left Lateral Leg -Current Size (cm) - Length 0.1 3.5 -Current Size (cm) - Width 0.1 2.8 -Current Size (cm) - Depth 0 0.1 -Total Square Cm 0.01 9.80 -Date of Last Picture (Recall this 01/11/25 01/18/25 field) -Exudate Amt Medium Large -Exudate Type Serosanguineous Yellow/Green -Wound Margin Distinct, Distinct, Outline Outline Attached Attached -Granulation Amt Small (1-33%) Small (1-33%) -Granulation Quality Red Red -Necrosis Amt Large (67-100%) Large (67-100%) -Necrotic Tissue Type Eschar Adherent Slough -Texture (Marie-wound Skin Appearance) Assessed Assessed -Moisture (Marie-wound Skin Appearance) Assessed Assessed -Color (Marie-wound Skin Appearance) Assessed, Assessed, Erythema, Erythema, Hemosiderin Hemosiderin Staining Staining -Temperature (Marie-wound Skin No Abnormality No Abnormality Appearance) (Pt Warm) (Pt Warm) -Tenderness on Palpation (Marie-wound No Skin Appearance) -Ulcer Cleansing Soap and Water Soap and Water -Foul Odor after Cleansing No No -Anesthetic Used 5% Lidocaine 5% Lidocaine Gel Gel -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) did not measure during nurse one *#22 R Medial Leg circumferential -Current Size (cm) - Length 0.1 12 -Current Size (cm) - Width 0.1 29 -Current Size (cm) - Depth 0 0.2 -Total Square Cm 0.01 348 -Date of Last Picture (Recall this 01/11/25 01/18/25 field) -Exudate Amt Large Large -Exudate Type Serosanguineous Yellow/Green -Wound Margin Distinct, Distinct, Outline Outline Attached Attached -Granulation Amt Small (1-33%) Small (1-33%) -Granulation Quality Red Red -Necrosis Amt Large (67-100%) Large (67-100%) -Necrotic Tissue Type Adherent Slough Adherent Slough -Texture (Marie-wound Skin Appearance) Assessed Assessed -Moisture (Marie-wound Skin Appearance) Assessed, Assessed Weeping -Color (Marie-wound Skin Appearance) Assessed, Assessed, Erythema, Erythema, Hemosiderin Hemosiderin Staining Staining -Temperature (Marie-wound Skin No Abnormality No Abnormality Appearance) (Pt Warm) (Pt Warm) -Tenderness on Palpation (Marie-wound No No Skin Appearance) -Ulcer Cleansing Soap and Water Soap and Water -Foul Odor after Cleansing No -Anesthetic Used 5% Lidocaine 5% Lidocaine Gel Gel -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) did not measure during nurse one #18 Left medial LE cluster -Current Size (cm) - Length 0.1 9.9 -Current Size (cm) - Width 0.1 15 -Current Size (cm) - Depth 0 0.2 -Total Square Cm 0.01 148.5 -Date of Last Picture (Recall this 01/11/25 field) -Exudate Amt Large Large -Exudate Type Serosanguineous Yellow/Green -Wound Margin Distinct, Distinct, Outline Outline Attached Attached -Granulation Amt Small (1-33%) Small (1-33%) -Granulation Quality Red Red -Necrosis Amt Large (67-100%) Large (67-100%) -Necrotic Tissue Type Adherent Slough Adherent Slough -Texture (Marie-wound Skin Appearance) Assessed Assessed -Moisture (Marie-wound Skin Appearance) Assessed, Assessed Weeping -Color (Marie-wound Skin Appearance) Assessed, Assessed, Erythema, Erythema, Hemosiderin Hemosiderin Staining Staining -Temperature (Marie-wound Skin No Abnormality No Abnormality Appearance) (Pt Warm) (Pt Warm) -Tenderness on Palpation (Marie-wound No No Skin Appearance) -Ulcer Cleansing Soap and Water Soap and Water -Foul Odor after Cleansing No No -Anesthetic Used 5% Lidocaine 5% Lidocaine Gel Gel -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) did not measure during nurse one Right Calf (cm) 46.6 Right Ankle (cm) 29.2 Left Calf (cm) 41.6 Left Ankle (cm) 29 WC - Nurse 2 - General Ulcer CM Notes Start: 01/11/25 09:21 Freq: Status: Active Protocol: Activity Type Activity Date Activity User E-sign Co-sign Detail Recorded Client Recorded Date Recorded By Document 01/11/25 10:18 DS [id number] 01/11/25 10:28 DS Document 01/18/25 10:51 [id number] 01/18/25 11:08 01/11/25 01/18/25 10:18 10:51 Wound Center Nurse 2 #24 Left Lateral Leg -Time 10:15 10:52 -Correct Patient Yes Yes -Correct Side, Site, Position Yes Yes -Correct Procedure Yes Yes -Procedure Performed Yes Yes -Type of Procedure Debridement Debridement -Clinical Debridement Subcutaneous Subcutaneous -Tissue Removed Subcutaneous Subcutaneous -Post Debridement (cm) - Length 3.2 3.1 -Post Debridement (cm) - Width 2.3 2.2 -Post Debridement (cm) - Depth 0.1 0.1 -Total Square (Post) (cm) 7.36 6.82 -Area of Debridement (cm) - Length 3.2 3.1 -Area of Debridement (cm) - Width 2.3 2.2 -Total Square (Area) (cm) 7.36 6.82 -Tunneling No No -Undermining/Tunneling No No -Circular Undermining No No -Wound/Ulcer Outcome Not Healed Not Healed -Ulcer Cleansing Rinsed/ Rinsed/ Irrigated with Irrigated with Saline Saline -Foul Odor after Cleansing No No -Bioengineered Tissue No No -Bleeding Controlled with Pressure Pressure -Treatment Response Procedure Procedure Tolerated Well Tolerated Well -Offloading No -Debridement - Subq, 1st 20sq cm Yes No -Debridement, SubQ, ea addt'l 20sq cm 23 or part thereof *#22 R Medial Leg circumferential -Time 10:18 10:53 -Correct Patient Yes Yes -Correct Side, Site, Position Yes Yes -Correct Procedure Yes Yes -Procedure Performed Yes Yes -Type of Procedure Debridement Debridement -Clinical Debridement Subcutaneous Subcutaneous -Tissue Removed Subcutaneous Subcutaneous -Post Debridement (cm) - Length 12.5 12.0 -Post Debridement (cm) - Width 28.0 27.0 -Post Debridement (cm) - Depth 0.1 0.1 -Total Square (Post) (cm) 350.00 324.00 -Area of Debridement (cm) - Length 12.5 12.0 -Area of Debridement (cm) - Width 28.0 27.0 -Total Square (Area) (cm) 350.00 324.00 -Tunneling No No -Undermining/Tunneling No No -Circular Undermining No No -Wound/Ulcer Outcome Not Healed Not Healed -Ulcer Cleansing Rinsed/ Rinsed/ Irrigated with Irrigated with Saline Saline -Foul Odor after Cleansing No No -Bioengineered Tissue No No -Bleeding Controlled with Pressure Pressure -Treatment Response Procedure Procedure Tolerated Well Tolerated Well -Debridement - Subq, 1st 20sq cm No No #18 Left medial LE cluster -Time 10:15 10:54 -Correct Patient Yes Yes -Correct Side, Site, Position Yes Yes -Correct Procedure Yes Yes -Procedure Performed Yes Yes -Type of Procedure Debridement Debridement -Clinical Debridement Subcutaneous Subcutaneous -Tissue Removed Subcutaneous Subcutaneous -Post Debridement (cm) - Length 9.0 9.2 -Post Debridement (cm) - Width 13.5 13.5 -Post Debridement (cm) - Depth 0.1 0.1 -Total Square (Post) (cm) 121.50 124.20 -Area of Debridement (cm) - Length 9.0 9.2 -Area of Debridement (cm) - Width 13.5 13.5 -Total Square (Area) (cm) 121.50 124.20 -Tunneling No No -Undermining/Tunneling No No -Circular Undermining No No -Wound/Ulcer Outcome Not Healed Not Healed -Ulcer Cleansing Rinsed/ Rinsed/ Irrigated with Irrigated with Saline Saline -Foul Odor after Cleansing No No -Bioengineered Tissue No No -Bleeding Controlled with Pressure Pressure -Treatment Response Procedure Procedure Tolerated Well Tolerated Well -Offloading No -Debridement - Subq, 1st 20sq cm No Yes -Debridement, SubQ, ea addt'l 20sq cm 22 or part thereof Pain Scale: 0-10 Numeric Is Patient Pain Free? No Yes ble -Description Aching -Intensity 5 -Duration (hours) Chronic -Pain Behavior Guarding -Pain Aggravating Factors Debridement -Alleviating Factors/Interventions Will continue to monitor, Emotional Support -Comments cetacaine spray used WC - Nurse 3 - General Ulcer D/C NN Start: 01/11/25 09:21 Freq: Status: Active Protocol: Activity Type Activity Date Activity User E-sign Co-sign Detail Recorded Client Recorded Date Recorded By Document 01/11/25 10:58 RB [id number] 01/11/25 11:00 RB Document 01/18/25 12:28 RB [id number] 01/18/25 12:30 RB 01/11/25 01/18/25 10:58 12:28 Wound Care Center Nurse 3 #24 Left Lateral Leg -Ulcer Cleansing Rinsed/ Irrigated with Saline -Primary Dressing Applied Aquacel Extra -Other Dressing ABD ABD -Primary Dressing Covered/Secured with Dry Gauze & Roll Gauze, Secured with Tape -Aquacel Extra 1 *#22 R Medial Leg circumferential -Ulcer Cleansing Rinsed/ Irrigated with Saline -Primary Dressing Applied Aquacel Extra, Optilok 6.5x10 Optilok 6.5x10 -Primary Dressing Covered/Secured with Dry Gauze & Dry Gauze & Roll Gauze, Roll Gauze, Secured with Secured with Tape Tape -Aquacel Extra 2 -Optilok 6.5x10 2 2 #18 Left medial LE cluster -Other Dressing aquacel extra/ ABD ABD -Primary Dressing Covered/Secured with Dry Gauze & Roll Gauze, Secured with Tape BLE -Stockings Yes: circaids pt own -Other kate Treatment Response Procedure Procedure Tolerated Well Tolerated Well Pain Scale: 0-10 Numeric Is Patient Pain Free? Yes No ble -Description Aching -Intensity 5 -Duration (hours) Acute -Pain Behavior Withdrawal from Touch -Pain Aggravating Factors Exercise/ Activity -Alleviating Factors/Interventions Medication -Effectiveness of Alleviating Factor/ Moderately Intervention effective WC - Visit Discharge Discharge Condition Stable Stable Ambulatory Status Ambulatory, Ambulatory, Walker Walker Transportation Private Auto Private Auto Medication Reconcilliation completed & No No provided to patient/care provider Clinical Summary of Care Provided Yes Yes Additional Wound Wound debrided: right lateral leg Laterality: Right Type of Debridement: Excisional debridement Anesthesia Used: 5% Lidocaine Gel and Cetacaine Depth: Down to and including healthy tissue and in the subcutaneous layer Percentage of wound debrided: 100 Instrument Used: - (Misonix ultrasonic debridement) Tissue Removed: Yellow slough, devitalized tissue Severity: Fat Layer Exposed Amount of bleeding with debridement: Mild Bleeding Controlled with: Compression and gauze Patient tolerated procedure: Patient tolerated procedure well Additional Wound Wound debrided: right medial leg Laterality: Right Type of Debridement: Excisional debridement Anesthesia Used: 5% Lidocaine Gel and Cetacaine Depth: Down to and including healthy tissue and in the subcutaneous layer Percentage of wound debrided: 100 Instrument Used: - (Misonix ultrasonic debridement) Tissue Removed: Yellow slough, devitalized tissue Severity: Fat Layer Exposed Amount of bleeding with debridement: Mild Bleeding Controlled with: Compression and gauze Patient tolerated procedure: Patient tolerated procedure well Assessment/Plan Assessment/Plan (1) Lymphedema: CODE(S): I89.0 - Lymphedema, not elsewhere classified (2) Hypertension: CODE(S): I10 - Essential (primary) hypertension QUALIFIERS: Hypertension type: primary hypertension Qualified Code(s): I10 - Essential (primary) hypertension (3) Hyperlipidemia: CODE(S): E78.5 - Hyperlipidemia, unspecified QUALIFIERS: Hyperlipidemia type: mixed hyperlipidemia Qualified Code(s): E78.2 - Mixed hyperlipidemia (4) History of DVT (deep vein thrombosis): CODE(S): Z86.718 - Personal history of other venous thrombosis and embolism (5) Venous insufficiency (chronic) (peripheral): CODE(S): I87.2 - Venous insufficiency (chronic) (peripheral) (6) Venous ulcer of left lower extremity with varicose veins: CODE(S): I83.029 - Varicose veins of left lower extremity with ulcer of unspecified site (7) Edema: CODE(S): R60.9 - Edema, unspecified QUALIFIERS: Edema type: unspecified Qualified Code(s): R60.9 - Edema, unspecified (8) 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 1 suture removed from each groin area without complication today. At home wound-care instructions: Will use Circaid compression garments with calcium alginate and super absorber to right LE and ABD to left LE changed every other day. Due to his chronic lymphedema and being unable to don traditional compression stockings and the presence of venous ulcers on his LE b/l, it is medically necessary for him to have Circaid compression garments. These are being ordered. I suspect he is not very compliant with his lymphedema pumps and not getting adequate compression with tubigrips. Due to the delayed progress in wound healing of his venous ulcers, we discussed applying for advanced wound healing product for healing his ulcer. Due to the size of his ulcer, Theraskin application approval was requested from his insurance as it is medically necessary for salvaging his limb and healing his ulcer. He underwent 2 applications of Theraskin to this ulcer. Since application of Theraskin he has had much improvement in epithelialization of his ulcer even though the overall size is not significantly changed there is progress. Off-loading: The patient was instructed to avoid pressure and friction on the affected areas. Reposition every 2 hours at minimum. Avoid prolonged standing and/or dangling of legs. When seated, feet should be elevated at chest level. Frequent ambulation is encouraged. Encouraged lymphedema pump use. Diet: Patient encouraged to increase protein intake while taking caution to avoid high carbohydrate and/or sugar intake. Labs/cultures/imaging: Wound culture showed Pseudomonas, Escherichia hermannii, Raoultella planticola, Vancomycin Resist. E. faecalis, Alcaligenes faecalis ssp faeca, Staphylococcus cohnii urealyti and anaerobic bacteria on 06/15/24 and he completed on Levofloxacin and Augmentin. Wound culture taken today on right lateral ulcer which showed Raoultella planticola, Staph hemolyticus, staph epidermidis and morganella morganii but no anaeroobic bacteria, Levofloxacin and doxycyline were prescribed based on culture results. Labs ordered 10/19/2024. Vitamin D was low A1C 5.4% Wound culture from 12/07/24 was positive for Providencia stuartii, Vancomycin resistant E. Faecalis, Corynebacterium striatum and completed Augmentin orally. Follow-up: Return in 1 week for wound care follow up and have dressing changed by home health Tuesday. Return sooner or report to the emergency room should symptoms worsen, or new symptoms arise. Note: [employer] speech recognition artifacts conservator software was used to create portions of this document. Sound-alike and misspelled words, as well as other artifacts conservator errors may be contained in the documentation.
--- NOTE | 2025-01-21 14:41 | WC ---
PHOTO 01/18/25 RIGHT MED LEG CIRC
--- NOTE | 2025-01-21 14:42 | WC ---
PHOTO 01/18/25 RIGHT MED LEG CIR
--- NOTE | 2025-01-21 14:43 | WC ---
PHOTO 01/18/25 LEFT JOANNA SO
--- NOTE | 2025-01-21 14:44 | WC ---
PHOTO 01/18/25 SEEMA
[2025-01-25 09:37] VITALS: BP 133/72; PULSE 69; RESP 18; TEMP 36
--- NOTE | 2025-01-25 13:20 | WC ---
PHOTO 01/25/25 YESSICAE
--- NOTE | 2025-01-25 13:21 | WC ---
PHOTO 01/25/25 ROSCOE GARRIDO
--- NOTE | 2025-01-25 13:21 | WC ---
PHOTO 01/25/25 LEFT LATERAL LEG
--- NOTE | 2025-01-25 14:52 | PCM.WC.PN ---
History of Present Illness Date of Service: 01/25/25 Chief Complaint: venous ulcers of left lower extremity History of Wound: Mauricio is a 69 yo gentleman who is here today for evaluation of ulcers to to his bilateral lower legs. He has been treated multiple times in the past at the wound healing center for similar ulcers. The left LE ulcer started after he developed increased swelling and blisters of left leg in October and the right leg started sometime at the end of October. He was seen at PCP's office a culture was taken and it was resistant to several antibiotics. He was treated initially with Levaquin but had myalgias and then was treated with doxycycline which he finished 2 days ago. He denies improvement and is having swelling to his left calf and thigh. He has been having swelling to both lower extremities for many years and it has worsened over the last few months. He has not been compliant with compression. He has had increased pain especially in the left leg. He has clear yellow drainage and redness without odor or warmth. He is anti-coagulated on coumadin. He has been washing with Dial soap and witch ifrah. He had been using Collagen at times and using Calcium Alginate and covering with ABD pads during October. He was treated with 3M compression and Aquacel Ag. He was referred to the wound center for ongoing treatment. His ulcers have moderate to heavy drainage. He was in the hospital from 11/30/22 until 12/09/22 for treatment of cellulitis and edema. He underwent treatment with Vancomycin and IV lasix and compression. Discharged on 12/09/22. He returned to his assisted living apartment on Tuesday12/21/22. Subjective Subjective Mauricio is a 69-year-old male with longstanding history of chronic venous ulceration to the left lower extremity and now a right lower extremity venous ulcer that is nearly circumferential. Wound culture from 12/07/24 was positive for Providencia stuartii, Vancomycin resistant E. Faecalis, Corynebacterium striatum and completed Augmentin orally. His edema is better this week and he tolerated the 3M wraps. His ulcers are generally the same this week. He is using KATE wraps for compression. 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 He continues to use his lymphedema pumps but continues to have pain with use of these pumps. 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 Objective Data Objective Data Vital Signs: Vital Signs Temp Pulse Resp BP O2 Del Method 96.8 F L 69 18 133/72 H Room Air 01/25/25 09:37 01/25/25 09:37 01/25/25 09:37 01/25/25 09:37 01/18/25 09:44 Oxygen Delivery Method Room Air Physical Exam Const alert, oriented x3 and no apparent distress General Appearance: cooperative and comfortable HEENT normocephalic and head/scalp atraumatic Lymph Lymphatic: lymphedema moderate Resp normal respiratory effort Effort and Inspection: able to speak in complete sentences Cardio regular rate and regular rhythm Extremity Extremity Narrative: His ulcers are painful and the right lower leg remains more swollen than his left General Extremity: edema bilateral lower extremity Details: severe Skin General Skin Exam: venous stasis and dermatitis Wounds: wounds noted Wound Narrative: as in clinical panel, + devitalized tissue, there is increased depth, + granulation tissue bilateral ulcer with good granulation and moderate to heavy slough prior to debridement and minimal post debridement Psych mental status grossly normal, thought process normal, cooperative and affect normal Debridement Note Debridement Note Wound debrided: left medial LE ulcer Laterality: Left Type of Debridement: Excisional debridement Anesthesia Used: 5% Lidocaine Gel and Cetacaine Depth: Down to and including healthy tissue and in the subcutaneous layer Percentage of wound debrided: 100 Instrument Used: - (Misonix ultrasonic debridement) Tissue Removed: Yellow slough, devitalized tissue Severity: Fat Layer Exposed Amount of bleeding with debridement: Mild Bleeding Controlled with: Compression and gauze Patient tolerated procedure: Patient tolerated procedure well Post-Debridement Measurements and Additional Note: Post-Debridement Measurements/Treatment DEBBIE - Nurse 1 - General Ulcer Assessment Start: 01/11/25 09:21 Freq: Status: Active Protocol: ONDINA Activity Type Activity Date Activity User E-sign Co-sign Detail Recorded Client Recorded Date Recorded By Document 01/11/25 09:21 KW [id number] 01/11/25 09:46 KW Document 01/18/25 09:44 KW [id number] 01/18/25 10:10 KW Document 01/25/25 09:37 RB [id number] 01/25/25 09:43 RB 01/11/25 01/18/25 01/25/25 09:21 09:44 09:37 WC - Today's Visit Information Type of service Follow-up Visit Follow-up Visit Follow-up Visit (Physician/SPECIAL EDUCATION DIRECTOR (Physician/SPECIAL EDUCATION DIRECTOR (Physician/SPECIAL EDUCATION DIRECTOR ) ) ) Arrival Mode Ambulatory Ambulatory, Ambulatory Walker Transfer Assistance None Patient Identification Verified (Name & Yes Yes Yes ) Patient Requires Transmission-Based No Precautions Vital Signs Temperature (97.8 F-99.1 F) 96.2 F L 96.5 F L 96.8 F L Temperature Source Temporal Temporal Temporal Pulse Rate (60-100) 79 64 69 Pulse Location Monitor Monitor Monitor Respiratory Rate (12-18) 18 18 18 Respiratory rate source Observation Observation Observation Oxygen Delivery Method Room Air Room Air Blood Pressure (90/60-120/80) 132/69 H 127/69 H 133/72 H Blood Pressure Mean (mm Hg) 90 88 92 Source Monitor Monitor Monitor Position Semi-Fowlers Semi-Fowlers Semi-Fowlers Blood Pressure Location Right Arm Right Arm Left Arm History Since Last Visit- (Skip if this is Patient's initial visit) Have you changed medications since your Yes No No last visit? Any new allergies or adverse reactions No No No Had a fall/change in ADL's that may No No No increase risk of falls Signs or symptoms of abuse and/or No No No neglect since last visit Have you been in the hospital since your Yes No No last visit? Has dressing in place as prescribed Yes Yes Yes Has compression in place as prescribed Yes Yes Yes Has offloadiing in place as prescribed N/A N/A N/A Experienced any changes in pain level or No No No management Left Footwear Regular Shoe Regular Shoe Regular Shoe Right Footwear Regular Shoe Regular Shoe Regular Shoe Pain Scale: 0-10 Numeric Is Patient Pain Free? Yes No No ble -Description Aching -Intensity 6 5 -Duration (hours) Acute -Pain Behavior Guarding, Irritability -Pain Aggravating Factors ADL's -Alleviating Factors/Interventions Medication, Medication Medicate when due,Inactivity/ Resting,Turning /Repositioning -Effectiveness of Alleviating Factor/ Moderately Intervention effective WC - Nurse 1 - General Ulcer Measurement Start: 01/11/25 09:21 Freq: Status: Active Protocol: Activity Type Activity Date Activity User E-sign Co-sign Detail Recorded Client Recorded Date Recorded By Document 01/11/25 09:21 KW [id number] 01/11/25 09:46 KW Document 01/18/25 09:44 KW [id number] 01/18/25 10:10 KW Document 01/25/25 09:37 RB [id number] 01/25/25 09:43 RB 01/11/25 01/18/25 01/25/25 09:21 09:44 09:37 Wound Center Nurse 1 #24 Left Lateral Leg -Combined with other wound No -Current Size (cm) - Length 0.1 3.5 3 -Current Size (cm) - Width 0.1 2.8 2 -Current Size (cm) - Depth 0 0.1 0.1 -Total Square Cm 0.01 9.80 6 -Date of Last Picture (Recall this 01/11/25 01/18/25 field) -Photo Taken Yes -Tunneling No -Undermining/Tunneling No -Circular Undermining No -Exudate Amt Medium Large Medium -Exudate Type Serosanguineous Yellow/Green Serosanguineous -Wound Margin Distinct, Distinct, Distinct, Outline Outline Outline Attached Attached Attached -Granulation Amt Small (1-33%) Small (1-33%) Medium (34-66%) -Granulation Quality [place] -Slough/Fibrin Yes -Necrosis Amt Large (67-100%) Large (67-100%) Medium (34-66%) -Necrotic Tissue Type Eschar Adherent Slough Adherent Slough -Structure Exposed N/A -Texture (Marie-wound Skin Appearance) Assessed Assessed Assessed -Moisture (Marie-wound Skin Appearance) Assessed Assessed Assessed -Color (Marei-wound Skin Appearance) Assessed, Assessed, Assessed, Erythema, Erythema, Hemosiderin Hemosiderin Hemosiderin Staining Staining Staining -Temperature (Marie-wound Skin No Abnormality No Abnormality No Abnormality Appearance) (Pt Warm) (Pt Warm) (Pt Warm) -Tenderness on Palpation (Marie-wound No No Skin Appearance) -Ulcer Cleansing Soap and Water Soap and Water Wound Cleanser -Foul Odor after Cleansing No No No -Anesthetic Used 5% Lidocaine 5% Lidocaine 5% Lidocaine Gel Gel Gel -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) did not measure during nurse one *#22 R Medial Leg circumferential -Combined with other wound No -Current Size (cm) - Length 0.1 12 31.7 -Current Size (cm) - Width 0.1 29 12 -Current Size (cm) - Depth 0 0.2 0.2 -Total Square Cm 0.01 348 380.4 -Date of Last Picture (Recall this 01/11/25 01/18/25 field) -Photo Taken Yes -Tunneling No -Undermining/Tunneling No -Circular Undermining No -Exudate Amt Large Large Large -Exudate Type Serosanguineous Yellow/Green Serosanguineous -Wound Margin Distinct, Distinct, Distinct, Outline Outline Outline Attached Attached Attached -Granulation Amt Small (1-33%) Small (1-33%) Medium (34-66%) -Granulation Quality [place] -Slough/Fibrin Yes -Necrosis Amt Large (67-100%) Large (67-100%) Medium (34-66%) -Necrotic Tissue Type Adherent Slough Adherent Slough Adherent Slough -Structure Exposed N/A -Texture (Marie-wound Skin Appearance) Assessed Assessed Assessed -Moisture (Marie-wound Skin Appearance) Assessed, Assessed Assessed Weeping -Color (Marie-wound Skin Appearance) Assessed, Assessed, Assessed, Erythema, Erythema, Hemosiderin Hemosiderin Hemosiderin Staining Staining Staining -Temperature (Marie-wound Skin No Abnormality No Abnormality No Abnormality Appearance) (Pt Warm) (Pt Warm) (Pt Warm) -Tenderness on Palpation (Marie-wound No No No Skin Appearance) -Ulcer Cleansing Soap and Water Soap and Water Wound Cleanser -Foul Odor after Cleansing No No -Anesthetic Used 5% Lidocaine 5% Lidocaine 5% Lidocaine Gel Gel Gel -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) did not measure during nurse one #18 Left medial LE cluster -Combined with other wound No -Current Size (cm) - Length 0.1 9.9 8 -Current Size (cm) - Width 0.1 15 12 -Current Size (cm) - Depth 0 0.2 0.2 -Total Square Cm 0.01 148.5 96 -Date of Last Picture (Recall this 01/11/25 field) -Photo Taken Yes -Tunneling No -Undermining/Tunneling No -Circular Undermining No -Exudate Amt Large Large Medium -Exudate Type Serosanguineous Yellow/Green Serosanguineous -Wound Margin Distinct, Distinct, Distinct, Outline Outline Outline Attached Attached Attached -Granulation Amt Small (1-33%) Small (1-33%) Medium (34-66%) -Granulation Quality [place] -Slough/Fibrin Yes -Necrosis Amt Large (67-100%) Large (67-100%) Medium (34-66%) -Necrotic Tissue Type Adherent Slough Adherent Slough Adherent Slough -Structure Exposed N/A -Texture (Marie-wound Skin Appearance) Assessed Assessed Assessed -Moisture (Marie-wound Skin Appearance) Assessed, Assessed Assessed Weeping -Color (Marie-wound Skin Appearance) Assessed, Assessed, Hemosiderin Erythema, Erythema, Staining Hemosiderin Hemosiderin Staining Staining -Temperature (Marie-wound Skin No Abnormality No Abnormality No Abnormality Appearance) (Pt Warm) (Pt Warm) (Pt Warm) -Tenderness on Palpation (Marie-wound No No No Skin Appearance) -Ulcer Cleansing Soap and Water Soap and Water Wound Cleanser -Foul Odor after Cleansing No No No -Anesthetic Used 5% Lidocaine 5% Lidocaine 5% Lidocaine Gel Gel Gel -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) did not measure during nurse one Lower Limb Edema Present Yes Right Calf (cm) 46.6 48 Right Ankle (cm) 29.2 30 Left Calf (cm) 41.6 44.5 Left Ankle (cm) 29 29 WC - Nurse 2 - General Ulcer CM Notes Start: 01/11/25 09:21 Freq: Status: Active Protocol: Activity Type Activity Date Activity User E-sign Co-sign Detail Recorded Client Recorded Date Recorded By Document 01/11/25 10:18 [id number] 01/11/25 10:28 DS Document 01/18/25 10:51 [id number] 01/18/25 11:08 Document 01/25/25 10:15 [id number] 01/25/25 10:35 01/11/25 01/18/25 01/25/25 10:18 10:51 10:15 Wound Center Nurse 2 #24 Left Lateral Leg -Time 10:15 10:52 10:21 -Correct Patient Yes Yes Yes -Correct Side, Site, Position Yes Yes Yes -Correct Procedure Yes Yes Yes -Procedure Performed Yes Yes Yes -Type of Procedure Debridement Debridement Debridement -Clinical Debridement Subcutaneous Subcutaneous Subcutaneous -Tissue Removed Subcutaneous Subcutaneous Subcutaneous -Post Debridement (cm) - Length 3.2 3.1 2.6 -Post Debridement (cm) - Width 2.3 2.2 2.2 -Post Debridement (cm) - Depth 0.1 0.1 0.1 -Total Square (Post) (cm) 7.36 6.82 5.72 -Area of Debridement (cm) - Length 3.2 3.1 2.6 -Area of Debridement (cm) - Width 2.3 2.2 2.2 -Total Square (Area) (cm) 7.36 6.82 5.72 -Tunneling No No No -Undermining/Tunneling No No No -Circular Undermining No No No -Wound/Ulcer Outcome Not Healed Not Healed Not Healed -Ulcer Cleansing Rinsed/ Rinsed/ Rinsed/ Irrigated with Irrigated with Irrigated with Saline Saline Saline -Foul Odor after Cleansing No No No -Bioengineered Tissue No No No -Bleeding Controlled with Pressure Pressure Pressure -Treatment Response Procedure Procedure Procedure Tolerated Well Tolerated Well Tolerated Well -Offloading No -Assistive Device(s) Walker -Debridement - Subq, 1st 20sq cm Yes No No -Debridement, SubQ, ea addt'l 20sq cm 23 or part thereof *#22 R Medial Leg circumferential -Time 10:18 10:53 10:22 -Correct Patient Yes Yes Yes -Correct Side, Site, Position Yes Yes Yes -Correct Procedure Yes Yes Yes -Procedure Performed Yes Yes Yes -Type of Procedure Debridement Debridement Debridement -Clinical Debridement Subcutaneous Subcutaneous Subcutaneous -Tissue Removed Subcutaneous Subcutaneous Subcutaneous -Post Debridement (cm) - Length 12.5 12.0 12.0 -Post Debridement (cm) - Width 28.0 27.0 29.0 -Post Debridement (cm) - Depth 0.1 0.1 0.1 -Total Square (Post) (cm) 350.00 324.00 348.00 -Area of Debridement (cm) - Length 12.5 12.0 12.0 -Area of Debridement (cm) - Width 28.0 27.0 29.0 -Total Square (Area) (cm) 350.00 324.00 348.00 -Tunneling No No No -Undermining/Tunneling No No No -Circular Undermining No No No -Wound/Ulcer Outcome Not Healed Not Healed Not Healed -Ulcer Cleansing Rinsed/ Rinsed/ Rinsed/ Irrigated with Irrigated with Irrigated with Saline Saline Saline -Foul Odor after Cleansing No No No -Bioengineered Tissue No No No -Bleeding Controlled with Pressure Pressure Pressure -Treatment Response Procedure Procedure Procedure Tolerated Well Tolerated Well Tolerated Well -Offloading No -Assistive Device(s) Walker -Debridement - Subq, 1st 20sq cm No No No #18 Left medial LE cluster -Time 10:15 10:54 10:22 -Correct Patient Yes Yes Yes -Correct Side, Site, Position Yes Yes Yes -Correct Procedure Yes Yes Yes -Procedure Performed Yes Yes Yes -Type of Procedure Debridement Debridement Debridement -Clinical Debridement Subcutaneous Subcutaneous Subcutaneous -Tissue Removed Subcutaneous Subcutaneous Subcutaneous -Post Debridement (cm) - Length 9.0 9.2 8.8 -Post Debridement (cm) - Width 13.5 13.5 13.0 -Post Debridement (cm) - Depth 0.1 0.1 0.1 -Total Square (Post) (cm) 121.50 124.20 114.40 -Area of Debridement (cm) - Length 9.0 9.2 8.8 -Area of Debridement (cm) - Width 13.5 13.5 13.0 -Total Square (Area) (cm) 121.50 124.20 114.40 -Tunneling No No No -Undermining/Tunneling No No No -Circular Undermining No No No -Wound/Ulcer Outcome Not Healed Not Healed Not Healed -Ulcer Cleansing Rinsed/ Rinsed/ Rinsed/ Irrigated with Irrigated with Irrigated with Saline Saline Saline -Foul Odor after Cleansing No No No -Bioengineered Tissue No No No -Bleeding Controlled with Pressure Pressure Pressure -Treatment Response Procedure Procedure Procedure Tolerated Well Tolerated Well Tolerated Well -Offloading No No -Assistive Device(s) Walker -Debridement - Subq, 1st 20sq cm No Yes Yes -Debridement, SubQ, ea addt'l 20sq cm 22 23 or part thereof Pain Scale: 0-10 Numeric Is Patient Pain Free? No Yes Yes ble -Description Aching -Intensity 5 -Duration (hours) Chronic -Pain Behavior Guarding -Pain Aggravating Factors Debridement -Alleviating Factors/Interventions Will continue to monitor, Emotional Support -Comments cetacaine spray used WC - Nurse 3 - General Ulcer D/C NN Start: 01/11/25 09:21 Freq: Status: Active Protocol: Activity Type Activity Date Activity User E-sign Co-sign Detail Recorded Client Recorded Date Recorded By Document 01/11/25 10:58 RB [id number] 01/11/25 11:00 RB Document 01/18/25 12:28 RB [id number] 01/18/25 12:30 RB Document 01/25/25 11:35 RB [id number] 01/25/25 11:36 RB 01/11/25 01/18/25 01/25/25 10:58 12:28 11:35 Wound Care Center Nurse 3 #24 Left Lateral Leg -Ulcer Cleansing Rinsed/ Rinsed/ Irrigated with Irrigated with Saline Saline -Primary Dressing Applied Aquacel Extra Aquacel Extra -Other Dressing ABD ABD ABD -Primary Dressing Covered/Secured with Dry Gauze & Dry Gauze & Roll Gauze, Roll Gauze, Secured with Secured with Tape Tape -Aquacel Extra 1 1 *#22 R Medial Leg circumferential -Ulcer Cleansing Rinsed/ Rinsed/ Irrigated with Irrigated with Saline Saline -Primary Dressing Applied Aquacel Extra, Optilok 6.5x10 Aquacel Extra, Optilok 6.5x10 Optilok 6.5x10 -Primary Dressing Covered/Secured with Dry Gauze & Dry Gauze & Dry Gauze & Roll Gauze, Roll Gauze, Roll Gauze, Secured with Secured with Secured with Tape Tape Tape -Aquacel Extra 2 1 -Optilok 6.5x10 2 2 1 #18 Left medial LE cluster -Primary Dressing Applied Aquacel Extra -Other Dressing aquacel extra/ ABD ABD ABD -Primary Dressing Covered/Secured with Dry Gauze & Dry Gauze & Roll Gauze, Roll Gauze, Secured with Secured with Tape Tape -Aquacel Extra 1 BLE -Stockings Yes: circaids Yes: circaids pt own bilat -Other kate Treatment Response Procedure Procedure Procedure Tolerated Well Tolerated Well Tolerated Well Pain Scale: 0-10 Numeric Is Patient Pain Free? Yes No Yes ble -Description Aching -Intensity 5 -Duration (hours) Acute -Pain Behavior Withdrawal from Touch -Pain Aggravating Factors Exercise/ Activity -Alleviating Factors/Interventions Medication -Effectiveness of Alleviating Factor/ Moderately Intervention effective WC - Visit Discharge Discharge Condition Stable Stable Stable Ambulatory Status Ambulatory, Ambulatory, Ambulatory, Walker Walker Walker Transportation Private Auto Private Auto Private Auto Medication Reconcilliation completed & No No No provided to patient/care provider Clinical Summary of Care Provided Yes Yes Yes Additional Wound Wound debrided: right lateral leg Laterality: Right Type of Debridement: Excisional debridement Anesthesia Used: 5% Lidocaine Gel and Cetacaine Depth: Down to and including healthy tissue and in the subcutaneous layer Percentage of wound debrided: 100 Instrument Used: - (Misonix ultrasonic debridement) Tissue Removed: Yellow slough, devitalized tissue Severity: Fat Layer Exposed Amount of bleeding with debridement: Mild Bleeding Controlled with: Compression and gauze Patient tolerated procedure: Patient tolerated procedure well Additional Wound Wound debrided: right medial leg Laterality: Right Type of Debridement: Excisional debridement Anesthesia Used: 5% Lidocaine Gel and Cetacaine Depth: Down to and including healthy tissue and in the subcutaneous layer Percentage of wound debrided: 100 Instrument Used: - (Misonix ultrasonic debridement) Tissue Removed: Yellow slough, devitalized tissue Severity: Fat Layer Exposed Amount of bleeding with debridement: Mild Bleeding Controlled with: Compression and gauze Patient tolerated procedure: Patient tolerated procedure well Assessment/Plan Assessment/Plan (1) Lymphedema: CODE(S): I89.0 - Lymphedema, not elsewhere classified (2) Hypertension: CODE(S): I10 - Essential (primary) hypertension QUALIFIERS: Hypertension type: primary hypertension Qualified Code(s): I10 - Essential (primary) hypertension (3) Hyperlipidemia: CODE(S): E78.5 - Hyperlipidemia, unspecified QUALIFIERS: Hyperlipidemia type: mixed hyperlipidemia Qualified Code(s): E78.2 - Mixed hyperlipidemia (4) History of DVT (deep vein thrombosis): CODE(S): Z86.718 - Personal history of other venous thrombosis and embolism (5) Venous insufficiency (chronic) (peripheral): CODE(S): I87.2 - Venous insufficiency (chronic) (peripheral) (6) Venous ulcer of left lower extremity with varicose veins: CODE(S): I83.029 - Varicose veins of left lower extremity with ulcer of unspecified site (7) Edema: CODE(S): R60.9 - Edema, unspecified QUALIFIERS: Edema type: unspecified Qualified Code(s): R60.9 - Edema, unspecified (8) 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 At home wound-care instructions: Will use Circaid compression garments with calcium alginate and super absorber to right LE and ABD to left LE changed every other day. Due to his chronic lymphedema and being unable to don traditional compression stockings and the presence of venous ulcers on his LE b/l, it is medically necessary for him to have Circaid compression garments. He is using Circaid compression to both legs. I suspect he is not very compliant with his lymphedema pumps and not getting adequate compression with tubigrips. Due to the delayed progress in wound healing of his venous ulcers, we discussed applying for advanced wound healing product for healing his ulcer. Due to the size of his ulcer, Theraskin application approval was requested from his insurance as it is medically necessary for salvaging his limb and healing his ulcer. He underwent 2 applications of Theraskin to this ulcer. Since application of Theraskin he had much improvement in epithelialization of his ulcer even though the overall size is not significantly changed there is progress. Off-loading: The patient was instructed to avoid pressure and friction on the affected areas. Reposition every 2 hours at minimum. Avoid prolonged standing and/or dangling of legs. When seated, feet should be elevated at chest level. Frequent ambulation is encouraged. Encouraged lymphedema pump use. Diet: Patient encouraged to increase protein intake while taking caution to avoid high carbohydrate and/or sugar intake. Labs/cultures/imaging: Wound culture showed Pseudomonas, Escherichia hermannii, Raoultella planticola, Vancomycin Resist. E. faecalis, Alcaligenes faecalis ssp faeca, Staphylococcus cohnii urealyti and anaerobic bacteria on 06/15/24 and he completed on Levofloxacin and Augmentin. Wound culture taken today on right lateral ulcer which showed Raoultella planticola, Staph hemolyticus, staph epidermidis and morganella morganii but no anaeroobic bacteria, Levofloxacin and doxycyline were prescribed based on culture results. Labs ordered 10/19/2024. Vitamin D was low A1C 5.4% Wound culture from 12/07/24 was positive for Providencia stuartii, Vancomycin resistant E. Faecalis, Corynebacterium striatum and completed Augmentin orally. Follow-up: Return in 1 week for wound care follow up and have dressing changed by home health Tuesday. Return sooner or report to the emergency room should symptoms worsen, or new symptoms arise. Note: [employer] speech recognition executive legal secretary software was used to create portions of this document. Sound-alike and misspelled words, as well as other executive legal secretary errors may be contained in the documentation.
[2025-02-01 09:54] VITALS: BP 135/78; PULSE 68; RESP 16; TEMP 36.2
--- NOTE | 2025-02-01 15:22 | PCM.WC.PN ---
History of Present Illness Date of Service: 02/01/25 Chief Complaint: venous ulcers of left lower extremity History of Wound: Mauricio is a 69 yo gentleman who is here today for evaluation of ulcers to to his bilateral lower legs. He has been treated multiple times in the past at the wound healing center for similar ulcers. The left LE ulcer started after he developed increased swelling and blisters of left leg in October and the right leg started sometime at the end of October. He was seen at PCP's office a culture was taken and it was resistant to several antibiotics. He was treated initially with Levaquin but had myalgias and then was treated with doxycycline which he finished 2 days ago. He denies improvement and is having swelling to his left calf and thigh. He has been having swelling to both lower extremities for many years and it has worsened over the last few months. He has not been compliant with compression. He has had increased pain especially in the left leg. He has clear yellow drainage and redness without odor or warmth. He is anti-coagulated on coumadin. He has been washing with Dial soap and witch ifrah. He had been using Collagen at times and using Calcium Alginate and covering with ABD pads during October. He was treated with 3M compression and Aquacel Ag. He was referred to the wound center for ongoing treatment. His ulcers have moderate to heavy drainage. He was in the hospital from 11/30/22 until 12/09/22 for treatment of cellulitis and edema. He underwent treatment with Vancomycin and IV lasix and compression. Discharged on 12/09/22. He returned to his assisted living apartment on Tuesday12/21/22. Subjective Subjective Mauricio is a 69-year-old male with longstanding history of chronic venous ulceration to the left lower extremity and now a right lower extremity venous ulcer that is nearly circumferential. Wound culture from 12/07/24 was positive for Providencia stuartii, Vancomycin resistant E. Faecalis, Corynebacterium striatum and completed Augmentin orally. His edema is better this week and he is tolerating Circaid compression. 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 He continues to use his lymphedema pumps but continues to have pain with use of these pumps. 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 Objective Data Objective Data Vital Signs: Vital Signs Temp Pulse Resp BP O2 Del Method 97.1 F L 68 16 135/78 H Room Air 02/01/25 09:54 02/01/25 09:54 02/01/25 09:54 02/01/25 09:54 02/01/25 09:54 Oxygen Delivery Method Room Air Physical Exam Const alert, oriented x3 and no apparent distress General Appearance: cooperative and comfortable HEENT normocephalic and head/scalp atraumatic Lymph Lymphatic: lymphedema moderate Resp normal respiratory effort Effort and Inspection: able to speak in complete sentences Cardio regular rate and regular rhythm Extremity Extremity Narrative: His ulcers are painful and the right lower leg remains more swollen than his left General Extremity: edema bilateral lower extremity Details: severe Skin General Skin Exam: venous stasis and dermatitis Wounds: wounds noted Wound Narrative: as in clinical panel, + devitalized tissue, there is increased depth, + granulation tissue bilateral ulcer with good granulation and moderate to heavy slough prior to debridement and minimal post debridement Psych mental status grossly normal, thought process normal, cooperative and affect normal Debridement Note Debridement Note Wound debrided: left medial LE ulcer Laterality: Left Type of Debridement: Excisional debridement Anesthesia Used: 5% Lidocaine Gel and Cetacaine Depth: Down to and including healthy tissue and in the subcutaneous layer Percentage of wound debrided: 100 Instrument Used: - (Misonix ultrasonic debridement) Tissue Removed: Yellow slough, devitalized tissue Severity: Fat Layer Exposed Amount of bleeding with debridement: Mild Bleeding Controlled with: Compression and gauze Patient tolerated procedure: Patient tolerated procedure well Post-Debridement Measurements and Additional Note: Post-Debridement Measurements/Treatment WC - Nurse 1 - General Ulcer Assessment Start: 01/11/25 09:21 Freq: Status: Active Protocol: ONDINA Activity Type Activity Date Activity User E-sign Co-sign Detail Recorded Client Recorded Date Recorded By Document 01/11/25 09:21 KW [id number] 01/11/25 09:46 KW Document 01/18/25 09:44 KW [id number] 01/18/25 10:10 KW Document 01/25/25 09:37 RB [id number] 01/25/25 09:43 RB Document 02/01/25 09:54 KW [id number] 02/01/25 10:03 KW 01/11/25 01/18/25 01/25/25 09:21 09:44 09:37 - Today's Visit Information Type of service Follow-up Visit Follow-up Visit Follow-up Visit (Physician/MANAGEMENT COORDINATOR (Physician/MANAGEMENT COORDINATOR (Physician/MANAGEMENT COORDINATOR ) ) ) Arrival Mode Ambulatory Ambulatory, Ambulatory Walker Transfer Assistance None Patient Identification Verified (Name & Yes Yes Yes ) Patient Requires Transmission-Based No Precautions Vital Signs Temperature (97.8 F-99.1 F) 96.2 F L 96.5 F L 96.8 F L Temperature Source Temporal Temporal Temporal Pulse Rate (60-100) 79 64 69 Pulse Location Monitor Monitor Monitor Respiratory Rate (12-18) 18 18 18 Respiratory rate source Observation Observation Observation Oxygen Delivery Method Room Air Room Air Blood Pressure (90/60-120/80) 132/69 H 127/69 H 133/72 H Blood Pressure Mean (mm Hg) 90 88 92 Source Monitor Monitor Monitor Position Semi-Fowlers Semi-Fowlers Semi-Fowlers Blood Pressure Location Right Arm Right Arm Left Arm History Since Last Visit- (Skip if this is Patient's initial visit) Have you changed medications since your Yes No No last visit? Any new allergies or adverse reactions No No No Had a fall/change in ADL's that may No No No increase risk of falls Signs or symptoms of abuse and/or No No No neglect since last visit Have you been in the hospital since your Yes No No last visit? Has dressing in place as prescribed Yes Yes Yes Has compression in place as prescribed Yes Yes Yes Has offloadiing in place as prescribed N/A N/A N/A Experienced any changes in pain level or No No No management Left Footwear Regular Shoe Regular Shoe Regular Shoe Right Footwear Regular Shoe Regular Shoe Regular Shoe Pain Scale: 0-10 Numeric Is Patient Pain Free? Yes No No ble -Description Aching -Intensity 6 5 -Duration (hours) Acute -Pain Behavior Guarding, Irritability -Pain Aggravating Factors ADL's -Alleviating Factors/Interventions Medication, Medication Medicate when due,Inactivity/ Resting,Turning /Repositioning -Effectiveness of Alleviating Factor/ Moderately Intervention effective 02/01/25 09:54 WC - Today's Visit Information Type of service Follow-up Visit (Physician/MANAGEMENT COORDINATOR ) Arrival Mode Ambulatory, Walker Transfer Assistance Patient Identification Verified (Name & Yes ) Patient Requires Transmission-Based Precautions Vital Signs Temperature (97.8 F-99.1 F) 97.1 F L Temperature Source Temporal Pulse Rate (60-100) 68 Pulse Location Monitor Respiratory Rate (12-18) 16 Respiratory rate source Observation Oxygen Delivery Method Room Air Blood Pressure (90/60-120/80) 135/78 H Blood Pressure Mean (mm Hg) 97 Source Monitor Position Semi-Fowlers Blood Pressure Location Right Arm History Since Last Visit- (Skip if this is Patient's initial visit) Have you changed medications since your No last visit? Any new allergies or adverse reactions No Had a fall/change in ADL's that may No increase risk of falls Signs or symptoms of abuse and/or neglect since last visit Have you been in the hospital since your No last visit? Has dressing in place as prescribed Yes Has compression in place as prescribed Yes Has offloadiing in place as prescribed N/A Experienced any changes in pain level or No management Left Footwear Regular Shoe Right Footwear Regular Shoe Pain Scale: 0-10 Numeric Is Patient Pain Free? Yes ble -Description -Intensity -Duration (hours) -Pain Behavior -Pain Aggravating Factors -Alleviating Factors/Interventions -Effectiveness of Alleviating Factor/ Intervention WC - Nurse 1 - General Ulcer Measurement Start: 01/11/25 09:21 Freq: Status: Active Protocol: Activity Type Activity Date Activity User E-sign Co-sign Detail Recorded Client Recorded Date Recorded By Document 01/11/25 09:21 KW [id number] 01/11/25 09:46 KW Document 01/18/25 09:44 KW [id number] 01/18/25 10:10 KW Document 01/25/25 09:37 RB [id number] 01/25/25 09:43 RB Document 02/01/25 09:54 KW [id number] 02/01/25 10:03 KW 01/11/25 01/18/25 01/25/25 09:21 09:44 09:37 Wound Center Nurse 1 #24 Left Lateral Leg -Combined with other wound No -Current Size (cm) - Length 0.1 3.5 3 -Current Size (cm) - Width 0.1 2.8 2 -Current Size (cm) - Depth 0 0.1 0.1 -Total Square Cm 0.01 9.80 6 -Date of Last Picture (Recall this 01/11/25 01/18/25 field) -Photo Taken Yes -Tunneling No -Undermining/Tunneling No -Circular Undermining No -Exudate Amt Medium Large Medium -Exudate Type Serosanguineous Yellow/Green Serosanguineous -Wound Margin Distinct, Distinct, Distinct, Outline Outline Outline Attached Attached Attached -Granulation Amt Small (1-33%) Small (1-33%) Medium (34-66%) -Granulation Quality Red Red [place] -Slough/Fibrin Yes -Necrosis Amt Large (67-100%) Large (67-100%) Medium (34-66%) -Necrotic Tissue Type Eschar Adherent Slough Adherent Slough -Structure Exposed N/A -Texture (Marie-wound Skin Appearance) Assessed Assessed Assessed -Moisture (Marie-wound Skin Appearance) Assessed Assessed Assessed -Color (Marie-wound Skin Appearance) Assessed, Assessed, Assessed, Erythema, Erythema, Hemosiderin Hemosiderin Hemosiderin Staining Staining Staining -Temperature (Marie-wound Skin No Abnormality No Abnormality No Abnormality Appearance) (Pt Warm) (Pt Warm) (Pt Warm) -Tenderness on Palpation (Marie-wound No No Skin Appearance) -Ulcer Cleansing Soap and Water Soap and Water Wound Cleanser -Foul Odor after Cleansing No No No -Anesthetic Used 5% Lidocaine 5% Lidocaine 5% Lidocaine Gel Gel Gel -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) did not measure during nurse one *#22 R Medial Leg circumferential -Combined with other wound No -Current Size (cm) - Length 0.1 12 31.7 -Current Size (cm) - Width 0.1 29 12 -Current Size (cm) - Depth 0 0.2 0.2 -Total Square Cm 0.01 348 380.4 -Date of Last Picture (Recall this 01/11/25 01/18/25 field) -Photo Taken Yes -Tunneling No -Undermining/Tunneling No -Circular Undermining No -Exudate Amt Large Large Large -Exudate Type Serosanguineous Yellow/Green Serosanguineous -Wound Margin Distinct, Distinct, Distinct, Outline Outline Outline Attached Attached Attached -Granulation Amt Small (1-33%) Small (1-33%) Medium (34-66%) -Granulation Quality Red Red [place] -Slough/Fibrin Yes -Necrosis Amt Large (67-100%) Large (67-100%) Medium (34-66%) -Necrotic Tissue Type Adherent Slough Adherent Slough Adherent Slough -Structure Exposed N/A -Texture (Marie-wound Skin Appearance) Assessed Assessed Assessed -Moisture (Marie-wound Skin Appearance) Assessed, Assessed Assessed Weeping -Color (Marie-wound Skin Appearance) Assessed, Assessed, Assessed, Erythema, Erythema, Hemosiderin Hemosiderin Hemosiderin Staining Staining Staining -Temperature (Marie-wound Skin No Abnormality No Abnormality No Abnormality Appearance) (Pt Warm) (Pt Warm) (Pt Warm) -Tenderness on Palpation (Marie-wound No No No Skin Appearance) -Ulcer Cleansing Soap and Water Soap and Water Wound Cleanser -Foul Odor after Cleansing No No -Anesthetic Used 5% Lidocaine 5% Lidocaine 5% Lidocaine Gel Gel Gel -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) did not measure during nurse one #18 Left medial LE cluster -Combined with other wound No -Current Size (cm) - Length 0.1 9.9 8 -Current Size (cm) - Width 0.1 15 12 -Current Size (cm) - Depth 0 0.2 0.2 -Total Square Cm 0.01 148.5 96 -Date of Last Picture (Recall this 01/11/25 field) -Photo Taken Yes -Tunneling No -Undermining/Tunneling No -Circular Undermining No -Exudate Amt Large Large Medium -Exudate Type Serosanguineous Yellow/Green Serosanguineous -Wound Margin Distinct, Distinct, Distinct, Outline Outline Outline Attached Attached Attached -Granulation Amt Small (1-33%) Small (1-33%) Medium (34-66%) -Granulation Quality Red Red [place] -Slough/Fibrin Yes -Necrosis Amt Large (67-100%) Large (67-100%) Medium (34-66%) -Necrotic Tissue Type Adherent Slough Adherent Slough Adherent Slough -Structure Exposed N/A -Texture (Marie-wound Skin Appearance) Assessed Assessed Assessed -Moisture (Marie-wound Skin Appearance) Assessed, Assessed Assessed Weeping -Color (Marie-wound Skin Appearance) Assessed, Assessed, Hemosiderin Erythema, Erythema, Staining Hemosiderin Hemosiderin Staining Staining -Temperature (Marie-wound Skin No Abnormality No Abnormality No Abnormality Appearance) (Pt Warm) (Pt Warm) (Pt Warm) -Tenderness on Palpation (Marie-wound No No No Skin Appearance) -Ulcer Cleansing Soap and Water Soap and Water Wound Cleanser -Foul Odor after Cleansing No No No -Anesthetic Used 5% Lidocaine 5% Lidocaine 5% Lidocaine Gel Gel Gel -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) did not measure during nurse one Lower Limb Edema Present Yes Right Calf (cm) 46.6 48 Right Ankle (cm) 29.2 30 Left Calf (cm) 41.6 44.5 Left Ankle (cm) 29 29 Left Foot (cm) 02/01/25 09:54 Wound Center Nurse 1 #24 Left Lateral Leg -Combined with other wound -Current Size (cm) - Length -Current Size (cm) - Width -Current Size (cm) - Depth -Total Square Cm -Date of Last Picture (Recall this field) -Photo Taken -Tunneling -Undermining/Tunneling -Circular Undermining -Exudate Amt Large -Exudate Type Yellow/Green -Wound Margin Distinct, Outline Attached -Granulation Amt Large (67-100%) -Granulation Quality Red -Slough/Fibrin -Necrosis Amt Medium (34-66%) -Necrotic Tissue Type Adherent Slough -Structure Exposed -Texture (Marie-wound Skin Appearance) Assessed -Moisture (Marie-wound Skin Appearance) Assessed -Color (Marie-wound Skin Appearance) Assessed, Erythema, Hemosiderin Staining -Temperature (Marie-wound Skin No Abnormality Appearance) (Pt Warm) -Tenderness on Palpation (Marie-wound No Skin Appearance) -Ulcer Cleansing Soap and Water -Foul Odor after Cleansing No -Anesthetic Used 5% Lidocaine Gel -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) *#22 R Medial Leg circumferential -Combined with other wound -Current Size (cm) - Length -Current Size (cm) - Width -Current Size (cm) - Depth -Total Square Cm -Date of Last Picture (Recall this field) -Photo Taken -Tunneling -Undermining/Tunneling -Circular Undermining -Exudate Amt Large -Exudate Type Yellow/Green -Wound Margin Distinct, Outline Attached -Granulation Amt Large (67-100%) -Granulation Quality -Slough/Fibrin -Necrosis Amt Medium (34-66%) -Necrotic Tissue Type Adherent Slough -Structure Exposed -Texture (Marie-wound Skin Appearance) Assessed -Moisture (Marie-wound Skin Appearance) Assessed -Color (Marie-wound Skin Appearance) Assessed, Erythema, Hemosiderin Staining -Temperature (Marie-wound Skin No Abnormality Appearance) (Pt Warm) -Tenderness on Palpation (Marie-wound No Skin Appearance) -Ulcer Cleansing Soap and Water -Foul Odor after Cleansing No -Anesthetic Used 5% Lidocaine Gel -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) #18 Left medial LE cluster -Combined with other wound -Current Size (cm) - Length -Current Size (cm) - Width -Current Size (cm) - Depth -Total Square Cm -Date of Last Picture (Recall this field) -Photo Taken -Tunneling -Undermining/Tunneling -Circular Undermining -Exudate Amt Large -Exudate Type Serosanguineous -Wound Margin Distinct, Outline Attached -Granulation Amt Large (67-100%) -Granulation Quality Red -Slough/Fibrin -Necrosis Amt Medium (34-66%) -Necrotic Tissue Type Adherent Slough -Structure Exposed -Texture (Marie-wound Skin Appearance) Assessed -Moisture (Marie-wound Skin Appearance) Assessed -Color (Marie-wound Skin Appearance) Assessed, Erythema, Hemosiderin Staining -Temperature (Marie-wound Skin No Abnormality Appearance) (Pt Warm) -Tenderness on Palpation (Marie-wound No Skin Appearance) -Ulcer Cleansing Soap and Water -Foul Odor after Cleansing No -Anesthetic Used 5% Lidocaine Gel -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) Lower Limb Edema Present Right Calf (cm) 47 Right Ankle (cm) 30 Left Calf (cm) Left Ankle (cm) 45 Left Foot (cm) 29.8 WC - Nurse 2 - General Ulcer CM Notes Start: 01/11/25 09:21 Freq: Status: Active Protocol: Activity Type Activity Date Activity User E-sign Co-sign Detail Recorded Client Recorded Date Recorded By Document 01/11/25 10:18 DS [id number] 01/11/25 10:28 DS Document 01/18/25 10:51 GM [id number] 01/18/25 11:08 GM Document 01/25/25 10:15 GM [id number] 01/25/25 10:35 GM Document 02/01/25 10:37 GM [id number] 02/01/25 10:53 GM 01/11/25 01/18/25 01/25/25 10:18 10:51 10:15 Wound Center Nurse 2 #24 Left Lateral Leg -Time 10:15 10:52 10:21 -Correct Patient Yes Yes Yes -Correct Side, Site, Position Yes Yes Yes -Correct Procedure Yes Yes Yes -Procedure Performed Yes Yes Yes -Type of Procedure Debridement Debridement Debridement -Clinical Debridement Subcutaneous Subcutaneous Subcutaneous -Tissue Removed Subcutaneous Subcutaneous Subcutaneous -Post Debridement (cm) - Length 3.2 3.1 2.6 -Post Debridement (cm) - Width 2.3 2.2 2.2 -Post Debridement (cm) - Depth 0.1 0.1 0.1 -Total Square (Post) (cm) 7.36 6.82 5.72 -Area of Debridement (cm) - Length 3.2 3.1 2.6 -Area of Debridement (cm) - Width 2.3 2.2 2.2 -Total Square (Area) (cm) 7.36 6.82 5.72 -Tunneling No No No -Undermining/Tunneling No No No -Circular Undermining No No No -Wound/Ulcer Outcome Not Healed Not Healed Not Healed -Ulcer Cleansing Rinsed/ Rinsed/ Rinsed/ Irrigated with Irrigated with Irrigated with Saline Saline Saline -Foul Odor after Cleansing No No No -Bioengineered Tissue No No No -Bleeding Controlled with Pressure Pressure Pressure -Treatment Response Procedure Procedure Procedure Tolerated Well Tolerated Well Tolerated Well -Offloading No -Assistive Device(s) Walker -Debridement - Subq, 1st 20sq cm Yes No No -Debridement, SubQ, ea addt'l 20sq cm 23 or part thereof *#22 R Medial Leg circumferential -Time 10:18 10:53 10:22 -Correct Patient Yes Yes Yes -Correct Side, Site, Position Yes Yes Yes -Correct Procedure Yes Yes Yes -Procedure Performed Yes Yes Yes -Type of Procedure Debridement Debridement Debridement -Clinical Debridement Subcutaneous Subcutaneous Subcutaneous -Tissue Removed Subcutaneous Subcutaneous Subcutaneous -Post Debridement (cm) - Length 12.5 12.0 12.0 -Post Debridement (cm) - Width 28.0 27.0 29.0 -Post Debridement (cm) - Depth 0.1 0.1 0.1 -Total Square (Post) (cm) 350.00 324.00 348.00 -Area of Debridement (cm) - Length 12.5 12.0 12.0 -Area of Debridement (cm) - Width 28.0 27.0 29.0 -Total Square (Area) (cm) 350.00 324.00 348.00 -Tunneling No No No -Undermining/Tunneling No No No -Circular Undermining No No No -Wound/Ulcer Outcome Not Healed Not Healed Not Healed -Ulcer Cleansing Rinsed/ Rinsed/ Rinsed/ Irrigated with Irrigated with Irrigated with Saline Saline Saline -Foul Odor after Cleansing No No No -Bioengineered Tissue No No No -Bleeding Controlled with Pressure Pressure Pressure -Treatment Response Procedure Procedure Procedure Tolerated Well Tolerated Well Tolerated Well -Offloading No -Assistive Device(s) Walker -Debridement - Subq, 1st 20sq cm No No No #18 Left medial LE cluster -Time 10:15 10:54 10:22 -Correct Patient Yes Yes Yes -Correct Side, Site, Position Yes Yes Yes -Correct Procedure Yes Yes Yes -Procedure Performed Yes Yes Yes -Type of Procedure Debridement Debridement Debridement -Clinical Debridement Subcutaneous Subcutaneous Subcutaneous -Tissue Removed Subcutaneous Subcutaneous Subcutaneous -Post Debridement (cm) - Length 9.0 9.2 8.8 -Post Debridement (cm) - Width 13.5 13.5 13.0 -Post Debridement (cm) - Depth 0.1 0.1 0.1 -Total Square (Post) (cm) 121.50 124.20 114.40 -Area of Debridement (cm) - Length 9.0 9.2 8.8 -Area of Debridement (cm) - Width 13.5 13.5 13.0 -Total Square (Area) (cm) 121.50 124.20 114.40 -Tunneling No No No -Undermining/Tunneling No No No -Circular Undermining No No No -Wound/Ulcer Outcome Not Healed Not Healed Not Healed -Ulcer Cleansing Rinsed/ Rinsed/ Rinsed/ Irrigated with Irrigated with Irrigated with Saline Saline Saline -Foul Odor after Cleansing No No No -Bioengineered Tissue No No No -Bleeding Controlled with Pressure Pressure Pressure -Treatment Response Procedure Procedure Procedure Tolerated Well Tolerated Well Tolerated Well -Offloading No No -Assistive Device(s) Walker -Debridement - Subq, 1st 20sq cm No Yes Yes -Debridement, SubQ, ea addt'l 20sq cm 22 23 or part thereof Pain Scale: 0-10 Numeric Is Patient Pain Free? No Yes Yes ble -Description Aching -Intensity 5 -Duration (hours) Chronic -Pain Behavior Guarding -Pain Aggravating Factors Debridement -Alleviating Factors/Interventions Will continue to monitor, Emotional Support -Comments cetacaine spray used 02/01/25 10:37 Wound Center Nurse 2 #24 Left Lateral Leg -Time 10:38 -Correct Patient Yes -Correct Side, Site, Position Yes -Correct Procedure Yes -Procedure Performed Yes -Type of Procedure Debridement -Clinical Debridement Subcutaneous -Tissue Removed Subcutaneous -Post Debridement (cm) - Length 2.7 -Post Debridement (cm) - Width 2.0 -Post Debridement (cm) - Depth 0.1 -Total Square (Post) (cm) 5.40 -Area of Debridement (cm) - Length 2.7 -Area of Debridement (cm) - Width 2.0 -Total Square (Area) (cm) 5.40 -Tunneling No -Undermining/Tunneling No -Circular Undermining No -Wound/Ulcer Outcome Not Healed -Ulcer Cleansing Rinsed/ Irrigated with Saline -Foul Odor after Cleansing No -Bioengineered Tissue No -Bleeding Controlled with Pressure -Treatment Response Procedure Tolerated Well -Offloading -Assistive Device(s) -Debridement - Subq, 1st 20sq cm No -Debridement, SubQ, ea addt'l 20sq cm or part thereof *#22 R Medial Leg circumferential -Time 10:38 -Correct Patient Yes -Correct Side, Site, Position Yes -Correct Procedure Yes -Procedure Performed Yes -Type of Procedure Debridement -Clinical Debridement Subcutaneous -Tissue Removed Subcutaneous -Post Debridement (cm) - Length 11.8 -Post Debridement (cm) - Width 28.0 -Post Debridement (cm) - Depth 0.1 -Total Square (Post) (cm) 330.40 -Area of Debridement (cm) - Length 11.8 -Area of Debridement (cm) - Width 28.0 -Total Square (Area) (cm) 330.40 -Tunneling No -Undermining/Tunneling No -Circular Undermining No -Wound/Ulcer Outcome Not Healed -Ulcer Cleansing Rinsed/ Irrigated with Saline -Foul Odor after Cleansing No -Bioengineered Tissue No -Bleeding Controlled with Pressure -Treatment Response Procedure Tolerated Well -Offloading No -Assistive Device(s) Walker -Debridement - Subq, 1st 20sq cm No #18 Left medial LE cluster -Time 10:38 -Correct Patient Yes -Correct Side, Site, Position Yes -Correct Procedure Yes -Procedure Performed Yes -Type of Procedure Debridement -Clinical Debridement Subcutaneous -Tissue Removed Subcutaneous -Post Debridement (cm) - Length 8.5 -Post Debridement (cm) - Width 13.0 -Post Debridement (cm) - Depth 0.1 -Total Square (Post) (cm) 110.50 -Area of Debridement (cm) - Length 8.5 -Area of Debridement (cm) - Width 13.0 -Total Square (Area) (cm) 110.50 -Tunneling No -Undermining/Tunneling No -Circular Undermining No -Wound/Ulcer Outcome Not Healed -Ulcer Cleansing Rinsed/ Irrigated with Saline -Foul Odor after Cleansing No -Bioengineered Tissue No -Bleeding Controlled with Pressure -Treatment Response Procedure Tolerated Well -Offloading -Assistive Device(s) -Debridement - Subq, 1st 20sq cm Yes -Debridement, SubQ, ea addt'l 20sq cm 22 or part thereof Pain Scale: 0-10 Numeric Is Patient Pain Free? Yes ble -Description -Intensity -Duration (hours) -Pain Behavior -Pain Aggravating Factors -Alleviating Factors/Interventions -Comments WC - Nurse 3 - General Ulcer D/C NN Start: 01/11/25 09:21 Freq: Status: Active Protocol: Activity Type Activity Date Activity User E-sign Co-sign Detail Recorded Client Recorded Date Recorded By Document 01/11/25 10:58 RB [id number] 01/11/25 11:00 RB Document 01/18/25 12:28 RB [id number] 01/18/25 12:30 RB Document 01/25/25 11:35 RB [id number] 01/25/25 11:36 RB Document 02/01/25 11:39 KW [id number] 02/01/25 11:40 KW 01/11/25 01/18/25 01/25/25 10:58 12:28 11:35 [facility] Nurse 3 #24 Left Lateral Leg -Ulcer Cleansing Rinsed/ Rinsed/ Irrigated with Irrigated with Saline Saline -Primary Dressing Applied Aquacel Extra Aquacel Extra -Other Dressing ABD ABD ABD -Primary Dressing Covered/Secured with Dry Gauze & Dry Gauze & Roll Gauze, Roll Gauze, Secured with Secured with Tape Tape -Aquacel Extra 1 1 -Aquacel AG 4x4 *#22 R Medial Leg circumferential -Ulcer Cleansing Rinsed/ Rinsed/ Irrigated with Irrigated with Saline Saline -Primary Dressing Applied Aquacel Extra, Optilok 6.5x10 Aquacel Extra, Optilok 6.5x10 Optilok 6.5x10 -Primary Dressing Covered/Secured with Dry Gauze & Dry Gauze & Dry Gauze & Roll Gauze, Roll Gauze, Roll Gauze, Secured with Secured with Secured with Tape Tape Tape -Aquacel Extra 2 1 -Aquacel AG 4x4 -Optilok 6.5x10 2 2 1 #18 Left medial LE cluster -Primary Dressing Applied Aquacel Extra -Other Dressing aquacel extra/ ABD ABD ABD -Primary Dressing Covered/Secured with Dry Gauze & Dry Gauze & Roll Gauze, Roll Gauze, Secured with Secured with Tape Tape -Aquacel Extra 1 -Aquacel AG 4x4 BLE -Stockings Yes: circaids Yes: circaids pt own bilat -Other kishore Treatment Response Procedure Procedure Procedure Tolerated Well Tolerated Well Tolerated Well Pain Scale: 0-10 Numeric Is Patient Pain Free? Yes No Yes ble -Description Aching -Intensity 5 -Duration (hours) Acute -Pain Behavior Withdrawal from Touch -Pain Aggravating Factors Exercise/ Activity -Alleviating Factors/Interventions Medication -Effectiveness of Alleviating Factor/ Moderately Intervention effective WC - Visit Discharge Discharge Condition Stable Stable Stable Ambulatory Status Ambulatory, Ambulatory, Ambulatory, Walker Walker Walker Transportation Private Auto Private Auto Private Auto Medication Reconcilliation completed & No No No provided to patient/care provider Clinical Summary of Care Provided Yes Yes Yes 02/01/25 11:39 [facility] Nurse 3 #24 Left Lateral Leg -Ulcer Cleansing -Primary Dressing Applied Aquacel AG 4x4 -Other Dressing -Primary Dressing Covered/Secured with Dry Gauze -Aquacel Extra -Aquacel AG 4x4 1 *#22 R Medial Leg circumferential -Ulcer Cleansing -Primary Dressing Applied Aquacel AG 4x4 -Primary Dressing Covered/Secured with Dry Gauze & Roll Gauze, Secured with Tape -Aquacel Extra -Aquacel AG 4x4 1 -Optilok 6.5x10 #18 Left medial LE cluster -Primary Dressing Applied Aquacel AG 4x4 -Other Dressing -Primary Dressing Covered/Secured with Dry Gauze & Roll Gauze, Secured with Tape -Aquacel Extra -Aquacel AG 4x4 1 BLE -Stockings -Other pt own circaides Treatment Response Pain Scale: 0-10 Numeric Is Patient Pain Free? Yes ble -Description -Intensity -Duration (hours) -Pain Behavior -Pain Aggravating Factors -Alleviating Factors/Interventions -Effectiveness of Alleviating Factor/ Intervention WC - Visit Discharge Discharge Condition Ambulatory Status Transportation Medication Reconcilliation completed & provided to patient/care provider Clinical Summary of Care Provided Additional Wound Wound debrided: right lateral leg Laterality: Right Type of Debridement: Excisional debridement Anesthesia Used: 5% Lidocaine Gel and Cetacaine Depth: Down to and including healthy tissue and in the subcutaneous layer Percentage of wound debrided: 100 Instrument Used: - (Misonix ultrasonic debridement) Tissue Removed: Yellow slough, devitalized tissue Severity: Fat Layer Exposed Amount of bleeding with debridement: Mild Bleeding Controlled with: Compression and gauze Patient tolerated procedure: Patient tolerated procedure well Additional Wound Wound debrided: right medial leg Laterality: Right Type of Debridement: Excisional debridement Anesthesia Used: 5% Lidocaine Gel and Cetacaine Depth: Down to and including healthy tissue and in the subcutaneous layer Percentage of wound debrided: 100 Instrument Used: - (Misonix ultrasonic debridement) Tissue Removed: Yellow slough, devitalized tissue Severity: Fat Layer Exposed Amount of bleeding with debridement: Mild Bleeding Controlled with: Compression and gauze Patient tolerated procedure: Patient tolerated procedure well Assessment/Plan Assessment/Plan (1) Lymphedema: CODE(S): I89.0 - Lymphedema, not elsewhere classified (2) Hypertension: CODE(S): I10 - Essential (primary) hypertension QUALIFIERS: Hypertension type: primary hypertension Qualified Code(s): I10 - Essential (primary) hypertension (3) Hyperlipidemia: CODE(S): E78.5 - Hyperlipidemia, unspecified QUALIFIERS: Hyperlipidemia type: mixed hyperlipidemia Qualified Code(s): E78.2 - Mixed hyperlipidemia (4) History of DVT (deep vein thrombosis): CODE(S): Z86.718 - Personal history of other venous thrombosis and embolism (5) Venous insufficiency (chronic) (peripheral): CODE(S): I87.2 - Venous insufficiency (chronic) (peripheral) (6) Venous ulcer of left lower extremity with varicose veins: CODE(S): I83.029 - Varicose veins of left lower extremity with ulcer of unspecified site (7) Edema: CODE(S): R60.9 - Edema, unspecified QUALIFIERS: Edema type: unspecified Qualified Code(s): R60.9 - Edema, unspecified (8) 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 At home wound-care instructions: Will use Circaid compression garments with calcium alginate and super absorber to right LE and ABD to left LE changed every other day. Due to his chronic lymphedema and being unable to don traditional compression stockings and the presence of venous ulcers on his LE b/l, it is medically necessary for him to have Circaid compression garments. He is using Circaid compression to both legs. I suspect he is not very compliant with his lymphedema pumps and not getting adequate compression with tubigrips. Due to the delayed progress in wound healing of his venous ulcers, we discussed applying for advanced wound healing product for healing his ulcer. Due to the size of his ulcer, Theraskin application approval was requested from his insurance as it is medically necessary for salvaging his limb and healing his ulcer. He underwent 2 applications of Theraskin to this ulcer. Since application of Theraskin he had much improvement in epithelialization of his ulcer even though the overall size is not significantly changed there is progress. Off-loading: The patient was instructed to avoid pressure and friction on the affected areas. Reposition every 2 hours at minimum. Avoid prolonged standing and/or dangling of legs. When seated, feet should be elevated at chest level. Frequent ambulation is encouraged. Encouraged lymphedema pump use. Diet: Patient encouraged to increase protein intake while taking caution to avoid high carbohydrate and/or sugar intake. Labs/cultures/imaging: Wound culture showed Pseudomonas, Escherichia hermannii, Raoultella planticola, Vancomycin Resist. E. faecalis, Alcaligenes faecalis ssp faeca, Staphylococcus cohnii urealyti and anaerobic bacteria on 06/15/24 and he completed on Levofloxacin and Augmentin. Wound culture taken today on right lateral ulcer which showed Raoultella planticola, Staph hemolyticus, staph epidermidis and morganella morganii but no anaeroobic bacteria, Levofloxacin and doxycyline were prescribed based on culture results. Labs ordered 10/19/2024. Vitamin D was low A1C 5.4% Wound culture from 12/07/24 was positive for Providencia stuartii, Vancomycin resistant E. Faecalis, Corynebacterium striatum and completed Augmentin orally. Follow-up: Return in 1 week for wound care follow up and have dressing changed by home health Tuesday. Return sooner or report to the emergency room should symptoms worsen, or new symptoms arise. Note: [employer] speech recognition child support case officer software was used to create portions of this document. Sound-alike and misspelled words, as well as other child support case officer errors may be contained in the documentation.
== END 2025-02-06 23:59 | disposition home or self-care (01) ==
LOC: WC 09:00
PROVIDERS: PCP Family Medicine; Referring Provider Family Medicine; Visit Provider Family Medicine
DX: I83.018 Varicose veins of right lower extremity with ulcer other part of lower leg (principal); L97.812 Non-pressure chronic ulcer of other part of right lower leg with fat layer exposed; I10 Essential (primary) hypertension; I89.0 Lymphedema, not elsewhere classified; R60.9 Edema, unspecified; E78.2 Mixed hyperlipidemia; I83.93 Asymptomatic varicose veins of bilateral lower extremities; Z86.718 Personal history of other venous thrombosis and embolism; I87.2 Venous insufficiency (chronic) (peripheral)
CPT/HCPCS: 11042; 11045

== ENCOUNTER → 2025-02-18 | Outpatient (CLI) | payer MEDICARE, OTHER, SELFPAY ==
--- NOTE | 2025-02-18 09:01 | AAVD_ITS ---
Reason For Study Reason For Study: S/P IVC CIV stent Inferior Vena Cava Proximal inferior vena cava measures 1.59 x 2.06 cm. in the cross-sectional axis. Proximal inferior vena cava measures 1.65 cm. in the longitudinal axis. Mid inferior vena cava measures 1.30 x 1.58 cm. in the cross-sectional axis. Mid inferior vena cava measures 1.55 cm. in the longitudinal axis. Distal inferior vena cava measures 1.22 cm. in the longitudinal axis. Unable to obtain distal IVC transverse angle due to body habitus / bowel gas. Stent noted at distal vessel. The inferior vena cava has spontaneous, phasic flow throughout. Left Common Iliac Vein Left common iliac vein measures 1.21 x 1.10 cm. in the cross-sectional axis. Left common iliac vein measures 1.4 cm. in the longitudinal axis. The left common iliac vein has spontaneous, phasic flow throughout. Stent Noted. Right Common Iliac Vein Right common iliac vein measures 1.32 x 1.19 cm. in the cross-sectional axis. Right common iliac vein measures 1.36 cm. in the longitudinal axis. The right common iliac vein has spontaneous, phasic flow throughout. Stent noted. Procedure Aorta IVC Iliac vasculature or bypass grafts [id number]. The exam was diagnostic. Exam performed in department. VL/Abd Aortic/IVC Duplex scan Interpretation Summary Patent inferior vena cava and bilateral iliac vein stents with normal venous fl ow pattern. Ordering Physician: Maria R Beasley Referring Physician: Patricia Garcia Performed By: Gary Soto, RVT
== END | disposition home or self-care (01) ==
LOC: CVS 08:59
PROVIDERS: PCP Family Medicine; Referring Provider Physician Assistant; Visit Provider Physician Assistant
DX: Z48.812 Encounter for surgical aftercare following surgery on the circulatory system (principal); I82.220 Acute embolism and thrombosis of inferior vena cava
CPT/HCPCS: 93978

== ENCOUNTER 2025-03-08 11:30 | Outpatient (RCR) | payer MEDICARE, OTHER, SELFPAY ==
[2025-02-07 00:08] VITALS: BP 135/78; PULSE 68; RESP 16; TEMP 36.2
[2025-02-08 11:17] VITALS: BP 143/68; PULSE 65; RESP 16; TEMP 35.6
--- NOTE | 2025-02-08 14:15 | PN.PCM_ITS ---
History of Present Illness Date of Service: 02/08/25 Chief Complaint: venous ulcers of left lower extremity History of Wound: Mauricio is a 69 yo gentleman who is here today for evaluation of ulcers to to his bilateral lower legs. He has been treated multiple times in the past at the wound healing center for similar ulcers. The left LE ulcer started after he developed increased swelling and blisters of left leg in October and the right leg started sometime at the end of October. He was seen at PCP's office a culture was taken and it was resistant to several antibiotics. He was treated initially with Levaquin but had myalgias and then was treated with doxycycline which he finished 2 days ago. He denies improvement and is having swelling to his left calf and thigh. He has been having swelling to both lower extremities for many years and it has worsened over the last few months. He has not been compliant with compression. He has had increased pain especially in the left leg. He has clear yellow drainage and redness without odor or warmth. He is anti- coagulated on coumadin. He has been washing with Dial soap and witch ifrah. He had been using Collagen at times and using Calcium Alginate and covering with ABD pads during October. He was treated with 3M compression and Aquacel Ag. He was referred to the wound center for ongoing treatment. His ulcers have moderate to heavy drainage. He was in the hospital from 11/30/22 until 12/09/22 for treatment of cellulitis and edema. He underwent treatment with Vancomycin and IV lasix and compression. Discharged on 12/09/22. He returned to his assisted living apartment on Tuesday12/21/22. Subjective Subjective Mauricio is a 69-year-old male with longstanding history of chronic venous ulceration to the left lower extremity and now a right lower extremity venous ulcer that is nearly circumferential. There has been improvement in both ulcers over the last week. He is more compliant with elevation. Wound culture from 12/07/24 was positive for Providencia stuartii, Vancomycin resistant E. Faecalis, Corynebacterium striatum and completed Augmentin orally. His edema is better this week and he is tolerating Circaid compression. 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 He continues to use his lymphedema pumps but continues to have pain with use of these pumps. Vascular surgery saw him and he has iliocaval obstruction with infrarenal IVC and multiple pelvic and abdominal venous collaterals which his lower extremity wounds are most likely felt to be a sequela from venous hypertension and he underwent successful vascular int ervention on 01/07/25. Objective Data Objective Data Vital Signs: Vital Signs Temp Pulse Resp BP O2 Del Method 96.1 F L 65 16 143/68 H Room Air 02/08/25 11:17 02/08/25 11:17 02/08/25 11:17 02/08/25 11:17 02/08/25 11:17 Oxygen Delivery Method Room Air Physical Exam Const alert, oriented x3 and no apparent distress General Appearance: cooperative and comfortable HEENT normocephalic and head/scalp atraumatic Lymph Lymphatic: lymphedema moderate Resp normal respiratory effort Effort and Inspection: able to speak in complete sentences Cardio regular rate and regular rhythm Extremity Extremity Narrative: His ulcers are painful and the right lower leg remains more swollen than his left but there is good granulation tissue throughout and slough that is nearly completely removed post - debridement, edges of ulcers are beveled without rolled borders General Extremity: edema bilateral lower extremity Details: severe Skin General Skin Exam: venous stasis and dermatitis Wounds: wounds noted Wound Narrative: as in clinical panel, + devitalized tissue, there is increased depth, + granulation tissue bilateral ulcer with good granulation and moderate to heavy slough prior to debridement and minimal post debridement Psych mental status grossly normal, thought process normal, cooperative and affect normal Debridement Note Debridement Note Wound debrided: left medial LE ulcer Laterality: Left Type of Debridement: Excisional debridement Anesthesia Used: 5% Lidocaine Gel and Cetacaine Depth: Down to and including healthy tissue and in the subcutaneous layer Percentage of wound debrided: 100 Instrument Used: - (Misonix ultrasonic debridement) Tissue Removed: Yellow slough, devitalized tissue Severity: Fat Layer Exposed Amount of bleeding with debridement: Mild Bleeding Controlled with: Compression and gauze Patient tolerated procedure: Patient tolerated procedure well Post-Debridement Measurements and Additional Note: Post-Debridement Measurements/Treatment DEBBIE - Nurse 1 - General Ulcer Assessment Start: 02/08/25 11:17 Freq: Status: Active Protocol: ONDINA Activity Type Activity Date Activity User E-sign Co-sign Detail Recorded Client Recorded Date Recorded By Document 02/08/25 11:17 ALEX [id number] 02/08/25 11:38 KW 02/08/25 11:17 - Today's Visit Information Type of service 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 Any new allergies or adverse reactions No Had a fall/change in ADL's that may No increase risk of falls Signs or symptoms of abuse and/or No neglect since last visit Have you been in the hospital since your No last visit? Has dressing in place as prescribed Yes Has compression in place as prescribed Yes Has offloadiing in place as prescribed N/A Experienced any changes in pain level or No management Left Footwear Regular Shoe Right Footwear Regular Shoe Pain Scale: 0-10 Numeric Is Patient Pain Free? Yes - Nurse 1 - General Ulcer Measurement Start: 02/08/25 11:17 Freq: Status: Active Protocol: Activity Type Activity Date Activity User E-sign Co-sign Detail Recorded Client Recorded Date Recorded By Document 02/08/25 11:17 KW [id number] 02/08/25 11:38 KW 02/08/25 11:17 Wound Center Nurse 1 #24 Left Lateral Leg -Current Size (cm) - Length 2.7 -Current Size (cm) - Width 3.2 -Current Size (cm) - Depth 0.1 -Total Square Cm 8.64 -Exudate Amt Small -Exudate Type Serosanguineous -Wound Margin Distinct, Outline Attached -Granulation Amt Medium (34-66%) -Granulation Quality [place] -Necrosis Amt Small (1-33%) -Necrotic Tissue Type Adherent Slough -Texture (Marie-wound Skin Appearance) Assessed -Moisture (Marie-wound Skin Appearance) Assessed -Color (Marie-wound Skin Appearance) Assessed, Hemosiderin Staining -Temperature (Marie-wound Skin No Abnormality Appearance) (Pt Warm) -Tenderness on Palpation (Marie-wound No Skin Appearance) -Ulcer Cleansing Soap and Water -Foul Odor after Cleansing No -Anesthetic Used 5% Lidocaine Gel *#22 R Medial Lateral -Current Size (cm) - Length 28 -Current Size (cm) - Width 10.5 -Current Size (cm) - Depth 0.2 -Total Square Cm 294.0 -Exudate Amt Large -Exudate Type Serosanguineous -Wound Margin Distinct, Outline Attached -Granulation Amt Large (67-100%) -Granulation Quality Red -Necrosis Amt Medium (34-66%) -Necrotic Tissue Type Adherent Slough -Texture (Marie-wound Skin Appearance) Assessed -Moisture (Marie-wound Skin Appearance) Assessed -Color (Marie-wound Skin Appearance) Assessed, Hemosiderin Staining -Temperature (Marie-wound Skin No Abnormality Appearance) (Pt Warm) -Tenderness on Palpation (Marie-wound No Skin Appearance) -Ulcer Cleansing Soap and Water -Foul Odor after Cleansing No -Anesthetic Used 5% Lidocaine Gel #18 Left medial LE cluster -Current Size (cm) - Length 15 -Current Size (cm) - Width 8.5 -Current Size (cm) - Depth 0.2 -Total Square Cm 127.5 -Exudate Amt Large -Exudate Type Serosanguineous -Wound Margin Distinct, Outline Attached -Granulation Amt Large (67-100%) -Granulation Quality Red -Necrosis Amt Medium (34-66%) -Necrotic Tissue Type Adherent Slough -Texture (Marie-wound Skin Appearance) Assessed -Moisture (Marie-wound Skin Appearance) Assessed -Color (Marie-wound Skin Appearance) Assessed, Hemosiderin Staining -Temperature (Marie-wound Skin No Abnormality Appearance) (Pt Warm) -Tenderness on Palpation (Marie-wound No Skin Appearance) -Ulcer Cleansing Soap and Water -Foul Odor after Cleansing No -Anesthetic Used 5% Lidocaine Gel Right Calf (cm) 47.2 Right Ankle (cm) 30.5 Left Calf (cm) 44 Left Ankle (cm) 29 WC - Nurse 2 - General Ulcer CM Notes Start: 02/08/25 11:17 Freq: Status: Active Protocol: Activity Type Activity Date Activity User E-sign Co-sign Detail Recorded Client Recorded Date Recorded By Document 02/08/25 12:03 [id number] 02/08/25 12:16 02/08/25 12:03 Wound Center Nurse 2 #24 Left Lateral Leg -Time 12:03 -Correct Patient Yes -Correct Side, Site, Position Yes -Correct Procedure Yes -Procedure Performed Yes -Type of Procedure Debridement -Clinical Debridement Subcutaneous -Tissue Removed Subcutaneous -Post Debridement (cm) - Length 2.4 -Post Debridement (cm) - Width 1.6 -Post Debridement (cm) - Depth 0.1 -Total Square (Post) (cm) 3.84 -Area of Debridement (cm) - Length 2.4 -Area of Debridement (cm) - Width 1.6 -Total Square (Area) (cm) 3.84 -Tunneling No -Undermining/Tunneling No -Circular Undermining No -Wound/Ulcer Outcome Not Healed -Ulcer Cleansing Rinsed/ Irrigated with Saline -Foul Odor after Cleansing No -Bioengineered Tissue No -Bleeding Controlled with Pressure -Treatment Response Procedure Tolerated Well -Offloading No -Assistive Device(s) Walker -Debridement - Subq, 1st 20sq cm No *#22 R Medial Lateral -Time 12:04 -Correct Patient Yes -Correct Side, Site, Position Yes -Correct Procedure Yes -Procedure Performed Yes -Type of Procedure Debridement -Clinical Debridement Subcutaneous -Tissue Removed Subcutaneous -Post Debridement (cm) - Length 11.8 -Post Debridement (cm) - Width 27.0 -Post Debridement (cm) - Depth 0.1 -Total Square (Post) (cm) 318.60 -Area of Debridement (cm) - Length 11.8 -Area of Debridement (cm) - Width 27.0 -Total Square (Area) (cm) 318.60 -Tunneling No -Undermining/Tunneling No -Circular Undermining No -Wound/Ulcer Outcome Not Healed -Ulcer Cleansing Rinsed/ Irrigated with Saline -Foul Odor after Cleansing No -Bioengineered Tissue No -Bleeding Controlled with Pressure -Treatment Response Procedure Tolerated Well -Offloading No -Assistive Device(s) Walker -Debridement - Subq, 1st 20sq cm No #18 Left medial LE cluster -Time 12:04 -Correct Patient Yes -Correct Side, Site, Position Yes -Correct Procedure Yes -Procedure Performed Yes -Type of Procedure Debridement -Clinical Debridement Subcutaneous -Tissue Removed Subcutaneous -Post Debridement (cm) - Length 8.5 -Post Debridement (cm) - Width 12.8 -Post Debridement (cm) - Depth 0.1 -Total Square (Post) (cm) 108.80 -Area of Debridement (cm) - Length 8.5 -Area of Debridement (cm) - Width 12.8 -Total Square (Area) (cm) 108.80 -Tunneling No -Undermining/Tunneling No -Circular Undermining No -Wound/Ulcer Outcome Not Healed -Ulcer Cleansing Rinsed/ Irrigated with Saline -Foul Odor after Cleansing No -Bioengineered Tissue No -Bleeding Controlled with Pressure -Treatment Response Procedure Tolerated Well -Offloading No -Debridement - Subq, 1st 20sq cm Yes -Debridement, SubQ, ea addt'l 20sq cm 21 or part thereof Pain Scale: 0-10 Numeric Is Patient Pain Free? Yes - Nurse 3 - General Ulcer D/C NN Start: 02/08/25 11:17 Freq: Status: Active Protocol: Activity Type Activity Date Activity User E-sign Co-sign Detail Recorded Client Recorded Date Recorded By Document 02/08/25 12:41 [email or web address] [id number] 02/08/25 12:44 RB 02/08/25 12:41 Wound Care Center Nurse 3 #24 Left Lateral Leg -Ulcer Cleansing Rinsed/ Irrigated with Saline -Primary Dressing Applied Aquacel Extra -Other Dressing ABD -Primary Dressing Covered/Secured with Dry Gauze & Roll Gauze, Secured with Tape -Aquacel Extra 1 *#22 R Medial Lateral -Ulcer Cleansing Rinsed/ Irrigated with Saline -Primary Dressing Applied Aquacel Extra, Optilok 6.5x10 -Primary Dressing Covered/Secured with Dry Gauze & Roll Gauze, Secured with Tape -Aquacel Extra 1 -Optilok 6.5x10 1 #18 Left medial LE cluster -Ulcer Cleansing Rinsed/ Irrigated with Saline -Primary Dressing Applied Aquacel Extra, Optilok 6.5x10 -Primary Dressing Covered/Secured with Dry Gauze & Roll Gauze, Secured with Tape -Aquacel Extra 1 -Optilok 6.5x10 1 BLE -Stockings Yes: pt own circaids Treatment Response Procedure Tolerated Well Pain Scale: 0-10 Numeric Is Patient Pain Free? Yes - Visit Discharge Discharge Condition Stable Ambulatory Status Ambulatory, Walker Transportation Private Auto Medication Reconcilliation completed & No provided to patient/care provider Clinical Summary of Care Provided Yes Additional Wound Wound debrided: right lateral leg Laterality: Right Type of Debridement: Excisional debridement Anesthesia Used: 5% Lidocaine Gel and Cetacaine Depth: Down to and including healthy tissue and in the subcutaneous layer Percentage of wound debrided: 100 Instrument Used: - (Misonix ultrasonic debridement) Tissue Removed: Yellow slough, devitalized tissue Severity: Fat Layer Exposed Amount of bleeding with debridement: Mild Bleeding Controlled with: Compression and gauze Patient tolerated procedure: Patient tolerated procedure well Additional Wound Wound debrided: right medial leg Laterality: Right Type of Debridement: Excisional debridement Anesthesia Used: 5% Lidocaine Gel and Cetacaine Depth: Down to and including healthy tissue and in the subcutaneous layer Percentage of wound debrided: 100 Instrument Used: - (Misonix ultrasonic debridement) Tissue Removed: Yellow slough, devitalized tissue Severity: Fat Layer Exposed Amount of bleeding with debridement: Mild Bleeding Controlled with: Compression and gauze Patient tolerated procedure: Patient tolerated procedure well Assessment/Plan Assessment/Plan (1) Lymphedema: CODE(S): I89.0 - Lymphedema, not elsewhere classified (2) Hypertension: CODE(S): I10 - Essential (primary) hypertension QUALIFIERS: Hypertension type: primary hypertension Qualified Code(s): I10 - Essential (primary) hypertension (3) Hyperlipidemia: CODE(S): E78.5 - Hyperlipidemia, unspecified QUALIFIERS: Hyperlipidemia type: mixed hyperlipidemia Qualified Code(s): E78.2 - Mixed hyperlipidemia (4) History of DVT (deep vein thrombosis): CODE(S): Z86.718 - Personal history of other venous thrombosis and embolism (5) Venous insufficiency (chronic) (peripheral): CODE(S): I87.2 - Venous insufficiency (chronic) (peripheral) (6) Venous ulcer of left lower extremity with varicose veins: CODE(S): I83.029 - Varicose veins of left lower extremity with ulcer of unspecified site (7) Edema: CODE(S): R60.9 - Edema, unspecified QUALIFIERS: Edema type: unspecified Qualified Code(s): R60.9 - Edema, unspecified (8) 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 At home wound-care instructions: Will use Circaid compression garments with calcium alginate and super absorber to right LE and ABD to left LE changed every other day. Due to his chronic lymphedema and being unable to don traditional compression stockings and the presence of venous ulcers on his LE b/l, it is medically necessary for him to have Circaid compression garments. He is using Circaid compression to both legs. I suspect he is not very compliant with his lymphedema pumps and not getting adequate compression with tubigrips. Due to the delayed progress in wound healing of his venous ulcers, we discussed applying for advanced wound healing product for healing his ulcer. Due to the size of his ulcer, Theraskin application approval was requested from his insuran ce as it is medically necessary for salvaging his limb and healing his ulcer. He underwent 2 applications of Theraskin to this ulcer. Since application of Theraskin he had much improvement in epithelialization of his ulcer even though the overall size is not significantly changed there was progress. He is using Circaid compression wraps. Off-loading: The patient was instructed to avoid pressure and friction on the affected areas. Reposition every 2 hours at minimum. Avoid prolonged standing and/or dangling of legs. When seated, feet should be elevated at chest level. Frequent ambulation is encouraged. Encouraged lymphedema pump use. Diet: Patient encouraged to increase protein intake while taking caution to avoid high carbohydrate and/or sugar intake. Labs/cultures/imaging: Wound culture showed Pseudomonas, Escherichia hermannii, Raoultella planticola, Vancomycin Resist. E. faecalis, Alcaligenes faecalis ssp faeca, Staphylococcus cohnii urealyti and anaerobic bacteria on 06/15/24 and he completed on Levofloxacin and Augmentin. Wound culture taken today on right lateral ulcer which showed Raoultella planticola, Staph hemolyticus, staph epidermidis and morganella morganii but no anaeroobic bacteria, Levofloxacin and doxycyline were prescribed based on culture results. Labs ordered 10/19/2024. Vitamin D was low A1C 5.4% Wound culture from 12/07/24 was positive for Providencia stuartii, Vancomycin resistant E. Faecalis, Corynebacterium striatum and completed Augmentin orally. Follow-up: Return in 1 week for wound care follow up and have dressing changed by home health Tuesday. Return sooner or report to the emergency room should symptoms worsen, or new symptoms arise. Note: [employer] speech recognition residential door installer software was used to create portions of this document. Sound-alike and misspelled words, as well as other residential door installer errors may be contained in the documentation.
[2025-02-15 11:47] VITALS: BP 144/75; PULSE 63; RESP 18
--- NOTE | 2025-02-15 15:35 | PCM.WC.PN ---
History of Present Illness Date of Service: 02/15/25 Chief Complaint: venous ulcers of left lower extremity History of Wound: Mauricio is a 69 yo gentleman who is here today for evaluation of ulcers to to his bilateral lower legs. He has been treated multiple times in the past at the wound healing center for similar ulcers. The left LE ulcer started after he developed increased swelling and blisters of left leg in October and the right leg started sometime at the end of October. He was seen at PCP's office a culture was taken and it was resistant to several antibiotics. He was treated initially with Levaquin but had myalgias and then was treated with doxycycline which he finished 2 days ago. He denies improvement and is having swelling to his left calf and thigh. He has been having swelling to both lower extremities for many years and it has worsened over the last few months. He has not been compliant with compression. He has had increased pain especially in the left leg. He has clear yellow drainage and redness without odor or warmth. He is anti-coagulated on coumadin. He has been washing with Dial soap and witch ifrah. He had been using Collagen at times and using Calcium Alginate and covering with ABD pads during October. He was treated with 3M compression and Aquacel Ag. He was referred to the wound center for ongoing treatment. His ulcers have moderate to heavy drainage. He was in the hospital from 11/30/22 until 12/09/22 for treatment of cellulitis and edema. He underwent treatment with Vancomycin and IV lasix and compression. Discharged on 12/09/22. He returned to his assisted living apartment on Tuesday12/21/22. Subjective Subjective Mauricio is a 69-year-old male with longstanding history of chronic venous ulceration to the left lower extremity and now a right lower extremity venous ulcer that is nearly circumferential. There has been improvement in both ulcers over the last week. He is more compliant with elevation. Wound culture from 12/07/24 was positive for Providencia stuartii, Vancomycin resistant E. Faecalis, Corynebacterium striatum and completed Augmentin orally. His edema is better this week and he is tolerating Circaid compression. 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 He continues to use his lymphedema pumps but continues to have pain with use of these pumps. 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 Objective Data Objective Data Vital Signs: Vital Signs Temp Pulse Resp BP O2 Del Method 96.1 F L 63 18 144/75 H Room Air 02/08/25 11:17 02/15/25 11:47 02/15/25 11:47 02/15/25 11:47 02/15/25 11:47 Oxygen Delivery Method Room Air Physical Exam Const alert, oriented x3 and no apparent distress General Appearance: cooperative and comfortable HEENT normocephalic and head/scalp atraumatic Lymph Lymphatic: lymphedema moderate Resp normal respiratory effort Effort and Inspection: able to speak in complete sentences Cardio regular rate and regular rhythm Extremity Extremity Narrative: His ulcers are painful and the right lower leg remains more swollen than his left but there is good granulation tissue throughout and slough that is nearly completely removed post - debridement, edges of ulcers are beveled without rolled borders General Extremity: edema bilateral lower extremity Details: severe Skin General Skin Exam: venous stasis and dermatitis Wounds: wounds noted Wound Narrative: as in clinical panel, + devitalized tissue, there is increased depth, + granulation tissue bilateral ulcer with good granulation and moderate to heavy slough prior to debridement and minimal post debridement Psych mental status grossly normal, thought process normal, cooperative and affect normal Debridement Note Debridement Note Wound debrided: left medial LE ulcer Laterality: Left Type of Debridement: Excisional debridement Anesthesia Used: 5% Lidocaine Gel and Cetacaine Depth: Down to and including healthy tissue and in the subcutaneous layer Percentage of wound debrided: 100 Instrument Used: - (Misonix ultrasonic debridement) Tissue Removed: Yellow slough, devitalized tissue Severity: Fat Layer Exposed Amount of bleeding with debridement: Mild Bleeding Controlled with: Compression and gauze Patient tolerated procedure: Patient tolerated procedure well Post-Debridement Measurements and Additional Note: Post-Debridement Measurements/Treatment WC - Nurse 1 - General Ulcer Assessment Start: 02/08/25 11:17 Freq: Status: Active Protocol: DEBBIE.LOWVALARIE Activity Type Activity Date Activity User E-sign Co-sign Detail Recorded Client Recorded Date Recorded By Document 02/08/25 11:17 ALEX [id number] 02/08/25 11:38 KW Document 02/15/25 11:47 KW [id number] 02/15/25 12:08 KW 02/08/25 02/15/25 11:17 11:47 - Today's Visit Information Type of service Follow-up Visit Follow-up Visit (Physician/CERTIFIED ENERGY MANAGER (Physician/CERTIFIED ENERGY MANAGER ) ) Arrival Mode Ambulatory, Ambulatory, Walker Walker Patient Identification Verified (Name & Yes Yes ) Vital Signs Temperature (97.8 F-99.1 F) 96.1 F L Temperature Source Temporal Temporal Pulse Rate (60-100) 65 63 Pulse Location Monitor Monitor Respiratory Rate (12-18) 16 18 Respiratory rate source Observation Observation Oxygen Delivery Method Room Air Room Air Blood Pressure (90/60-120/80) 143/68 H 144/75 H Blood Pressure Mean (mm Hg) 93 98 Source Monitor Monitor Position Semi-Fowlers Semi-Fowlers Blood Pressure Location Right Arm Right Arm History Since Last Visit- (Skip if this is Patient's initial visit) Have you changed medications since your No No last visit? Any new allergies or adverse reactions No No Had a fall/change in ADL's that may No No increase risk of falls Signs or symptoms of abuse and/or No No neglect since last visit Have you been in the hospital since your No No last visit? Has dressing in place as prescribed Yes Yes Has compression in place as prescribed Yes Yes Has offloadiing in place as prescribed N/A N/A Experienced any changes in pain level or No No management Left Footwear Regular Shoe Regular Shoe Right Footwear Regular Shoe Regular Shoe Pain Scale: 0-10 Numeric Is Patient Pain Free? Yes Yes - Nurse 1 - General Ulcer Measurement Start: 02/08/25 11:17 Freq: Status: Active Protocol: Activity Type Activity Date Activity User E-sign Co-sign Detail Recorded Client Recorded Date Recorded By Document 02/08/25 11:17 [id number] 02/08/25 11:38 KW Document 02/15/25 11:47 [id number] 02/15/25 12:08 KW 02/08/25 02/15/25 11:17 11:47 Wound Center Nurse 1 #24 Left Lateral Leg -Current Size (cm) - Length 2.7 0.1 -Current Size (cm) - Width 3.2 0.1 -Current Size (cm) - Depth 0.1 0.1 -Total Square Cm 8.64 0.01 -Date of Last Picture (Recall this 02/15/25 field) -Exudate Amt Small Large -Exudate Type Serosanguineous Serosanguineous -Wound Margin Distinct, Distinct, Outline Outline Attached Attached -Granulation Amt Medium (34-66%) Medium (34-66%) -Granulation Quality Lomax Red -Necrosis Amt Small (1-33%) Medium (34-66%) -Necrotic Tissue Type Adherent Slough Adherent Slough -Texture (Marie-wound Skin Appearance) Assessed Assessed -Moisture (Marie-wound Skin Appearance) Assessed Assessed -Color (Marie-wound Skin Appearance) Assessed, Assessed, Hemosiderin Hemosiderin Staining Staining -Temperature (Marie-wound Skin No Abnormality No Abnormality Appearance) (Pt Warm) (Pt Warm) -Tenderness on Palpation (Marie-wound No No Skin Appearance) -Ulcer Cleansing Soap and Water Soap and Water -Foul Odor after Cleansing No No -Anesthetic Used 5% Lidocaine 5% Lidocaine Gel Gel #22 R Medial Lateral -Current Size (cm) - Length 28 0.1 -Current Size (cm) - Width 10.5 0.1 -Current Size (cm) - Depth 0.2 0.1 -Total Square Cm 294.0 0.01 -Date of Last Picture (Recall this 02/15/25 field) -Exudate Amt Large Large -Exudate Type Serosanguineous Serosanguineous -Wound Margin Distinct, Distinct, Outline Outline Attached Attached -Granulation Amt Large (67-100%) Medium (34-66%) -Granulation Quality Red Red -Necrosis Amt Medium (34-66%) Medium (34-66%) -Necrotic Tissue Type Adherent Slough Adherent Slough -Texture (Marie-wound Skin Appearance) Assessed Assessed -Moisture (Marie-wound Skin Appearance) Assessed Assessed -Color (Marie-wound Skin Appearance) Assessed, Assessed, Hemosiderin Hemosiderin Staining Staining -Temperature (Marie-wound Skin No Abnormality No Abnormality Appearance) (Pt Warm) (Pt Warm) -Tenderness on Palpation (Marie-wound No No Skin Appearance) -Ulcer Cleansing Soap and Water Soap and Water -Foul Odor after Cleansing No No -Anesthetic Used 5% Lidocaine 5% Lidocaine Gel Gel #18 Left medial LE cluster -Current Size (cm) - Length 15 0.1 -Current Size (cm) - Width 8.5 0.1 -Current Size (cm) - Depth 0.2 0.1 -Total Square Cm 127.5 0.01 -Date of Last Picture (Recall this 02/15/25 field) -Exudate Amt Large Large -Exudate Type Serosanguineous Serosanguineous -Wound Margin Distinct, Distinct, Outline Outline Attached Attached -Granulation Amt Large (67-100%) Medium (34-66%) -Granulation Quality Red Red -Necrosis Amt Medium (34-66%) Medium (34-66%) -Necrotic Tissue Type Adherent Slough Adherent Slough -Texture (Marie-wound Skin Appearance) Assessed Assessed -Moisture (Marie-wound Skin Appearance) Assessed Assessed -Color (Marie-wound Skin Appearance) Assessed, Assessed, Hemosiderin Erythema, Staining Hemosiderin Staining -Temperature (Marie-wound Skin No Abnormality No Abnormality Appearance) (Pt Warm) (Pt Warm) -Tenderness on Palpation (Marie-wound No No Skin Appearance) -Ulcer Cleansing Soap and Water Soap and Water -Foul Odor after Cleansing No No -Anesthetic Used 5% Lidocaine 5% Lidocaine Gel Gel Right Calf (cm) 47.2 44.5 Right Ankle (cm) 30.5 30 Left Calf (cm) 44 42 Left Ankle (cm) 29 30 - Nurse 2 - General Ulcer CM Notes Start: 02/08/25 11:17 Freq: Status: Active Protocol: Activity Type Activity Date Activity User E-sign Co-sign Detail Recorded Client Recorded Date Recorded By Document 02/08/25 12:03 [id number] 02/08/25 12:16 Document 02/15/25 12:48 [id number] 02/15/25 13:01 02/08/25 02/15/25 12:03 12:48 Wound Center Nurse 2 #24 Left Lateral Leg -Time 12:03 12:48 -Correct Patient Yes Yes -Correct Side, Site, Position Yes Yes -Correct Procedure Yes Yes -Procedure Performed Yes Yes -Type of Procedure Debridement Debridement -Clinical Debridement Subcutaneous Subcutaneous -Tissue Removed Subcutaneous Subcutaneous -Post Debridement (cm) - Length 2.4 2.1 -Post Debridement (cm) - Width 1.6 1.3 -Post Debridement (cm) - Depth 0.1 0.1 -Total Square (Post) (cm) 3.84 2.73 -Area of Debridement (cm) - Length 2.4 2.1 -Area of Debridement (cm) - Width 1.6 1.3 -Total Square (Area) (cm) 3.84 2.73 -Tunneling No No -Undermining/Tunneling No No -Circular Undermining No No -Wound/Ulcer Outcome Not Healed Not Healed -Ulcer Cleansing Rinsed/ Rinsed/ Irrigated with Irrigated with Saline Saline -Foul Odor after Cleansing No No -Bioengineered Tissue No No -Bleeding Controlled with Pressure Pressure -Treatment Response Procedure Procedure Tolerated Well Tolerated Well -Offloading No No -Assistive Device(s) Walker -Debridement - Subq, 1st 20sq cm No No #22 R Medial Lateral -Time 12:04 12:48 -Correct Patient Yes Yes -Correct Side, Site, Position Yes Yes -Correct Procedure Yes Yes -Procedure Performed Yes Yes -Type of Procedure Debridement Debridement -Clinical Debridement Subcutaneous Subcutaneous -Tissue Removed Subcutaneous Subcutaneous -Post Debridement (cm) - Length 11.8 11.5 -Post Debridement (cm) - Width 27.0 26.0 -Post Debridement (cm) - Depth 0.1 0.1 -Total Square (Post) (cm) 318.60 299.00 -Area of Debridement (cm) - Length 11.8 -Area of Debridement (cm) - Width 27.0 -Total Square (Area) (cm) 318.60 -Tunneling No No -Undermining/Tunneling No No -Circular Undermining No No -Wound/Ulcer Outcome Not Healed Not Healed -Ulcer Cleansing Rinsed/ Rinsed/ Irrigated with Irrigated with Saline Saline -Foul Odor after Cleansing No No -Bioengineered Tissue No No -Bleeding Controlled with Pressure Pressure -Treatment Response Procedure Procedure Tolerated Well Tolerated Well -Offloading No No -Assistive Device(s) Walker -Debridement - Subq, 1st 20sq cm No No #18 Left medial LE cluster -Time 12:04 12:49 -Correct Patient Yes Yes -Correct Side, Site, Position Yes Yes -Correct Procedure Yes Yes -Procedure Performed Yes Yes -Type of Procedure Debridement Debridement -Clinical Debridement Subcutaneous Subcutaneous -Tissue Removed Subcutaneous Subcutaneous -Post Debridement (cm) - Length 8.5 8.5 -Post Debridement (cm) - Width 12.8 12.9 -Post Debridement (cm) - Depth 0.1 0.1 -Total Square (Post) (cm) 108.80 109.65 -Area of Debridement (cm) - Length 8.5 8.5 -Area of Debridement (cm) - Width 12.8 12.9 -Total Square (Area) (cm) 108.80 109.65 -Tunneling No No -Undermining/Tunneling No No -Circular Undermining No No -Wound/Ulcer Outcome Not Healed Not Healed -Ulcer Cleansing Rinsed/ Rinsed/ Irrigated with Irrigated with Saline Saline -Foul Odor after Cleansing No No -Bioengineered Tissue No No -Bleeding Controlled with Pressure Pressure -Treatment Response Procedure Procedure Tolerated Well Tolerated Well -Offloading No No -Debridement - Subq, 1st 20sq cm Yes Yes -Debridement, SubQ, ea addt'l 20sq cm 21 20 or part thereof Pain Scale: 0-10 Numeric Is Patient Pain Free? Yes Yes - Nurse 3 - General Ulcer D/C NN Start: 02/08/25 11:17 Freq: Status: Active Protocol: Activity Type Activity Date Activity User E-sign Co-sign Detail Recorded Client Recorded Date Recorded By Document 02/08/25 12:41 [email or web address] [id number] 02/08/25 12:44 RB 02/08/25 12:41 Wound Care Center Nurse 3 #24 Left Lateral Leg -Ulcer Cleansing Rinsed/ Irrigated with Saline -Primary Dressing Applied Aquacel Extra -Other Dressing ABD -Primary Dressing Covered/Secured with Dry Gauze & Roll Gauze, Secured with Tape -Aquacel Extra 1 #22 R Medial Lateral -Ulcer Cleansing Rinsed/ Irrigated with Saline -Primary Dressing Applied Aquacel Extra, Optilok 6.5x10 -Primary Dressing Covered/Secured with Dry Gauze & Roll Gauze, Secured with Tape -Aquacel Extra 1 -Optilok 6.5x10 1 #18 Left medial LE cluster -Ulcer Cleansing Rinsed/ Irrigated with Saline -Primary Dressing Applied Aquacel Extra, Optilok 6.5x10 -Primary Dressing Covered/Secured with Dry Gauze & Roll Gauze, Secured with Tape -Aquacel Extra 1 -Optilok 6.5x10 1 BLE -Stockings Yes: pt own circaids Treatment Response Procedure Tolerated Well Pain Scale: 0-10 Numeric Is Patient Pain Free? Yes - Visit Discharge Discharge Condition Stable Ambulatory Status Ambulatory, Walker Transportation Private Auto Medication Reconcilliation completed & No provided to patient/care provider Clinical Summary of Care Provided Yes Additional Wound Wound debrided: right lateral leg Laterality: Right Type of Debridement: Excisional debridement Anesthesia Used: 5% Lidocaine Gel and Cetacaine Depth: Down to and including healthy tissue and in the subcutaneous layer Percentage of wound debrided: 100 Instrument Used: - (Misonix ultrasonic debridement) Tissue Removed: Yellow slough, devitalized tissue Severity: Fat Layer Exposed Amount of bleeding with debridement: Mild Bleeding Controlled with: Compression and gauze Patient tolerated procedure: Patient tolerated procedure well Additional Wound Wound debrided: right medial leg Laterality: Right Type of Debridement: Excisional debridement Anesthesia Used: 5% Lidocaine Gel and Cetacaine Depth: Down to and including healthy tissue and in the subcutaneous layer Percentage of wound debrided: 100 Instrument Used: - (Misonix ultrasonic debridement) Tissue Removed: Yellow slough, devitalized tissue Severity: Fat Layer Exposed Amount of bleeding with debridement: Mild Bleeding Controlled with: Compression and gauze Patient tolerated procedure: Patient tolerated procedure well Assessment/Plan Assessment/Plan (1) Lymphedema: CODE(S): I89.0 - Lymphedema, not elsewhere classified (2) Hypertension: CODE(S): I10 - Essential (primary) hypertension QUALIFIERS: Hypertension type: primary hypertension Qualified Code(s): I10 - Essential (primary) hypertension (3) Hyperlipidemia: CODE(S): E78.5 - Hyperlipidemia, unspecified QUALIFIERS: Hyperlipidemia type: mixed hyperlipidemia Qualified Code(s): E78.2 - Mixed hyperlipidemia (4) History of DVT (deep vein thrombosis): CODE(S): Z86.718 - Personal history of other venous thrombosis and embolism (5) Venous insufficiency (chronic) (peripheral): CODE(S): I87.2 - Venous insufficiency (chronic) (peripheral) (6) Venous ulcer of left lower extremity with varicose veins: CODE(S): I83.029 - Varicose veins of left lower extremity with ulcer of unspecified site (7) Edema: CODE(S): R60.9 - Edema, unspecified QUALIFIERS: Edema type: unspecified Qualified Code(s): R60.9 - Edema, unspecified (8) 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 At home wound-care instructions: Will use Circaid compression garments with calcium alginate and super absorber to right LE and ABD to left LE changed every other day. Due to his chronic lymphedema and being unable to don traditional compression stockings and the presence of venous ulcers on his LE b/l, it is medically necessary for him to have Circaid compression garments. He is using Circaid compression to both legs. I suspect he is not very compliant with his lymphedema pumps and not getting adequate compression with tubigrips. Due to the delayed progress in wound healing of his venous ulcers, we discussed applying for advanced wound healing product for healing his ulcer. Due to the size of his ulcer, Theraskin application approval was requested from his insurance as it is medically necessary for salvaging his limb and healing his ulcer. He underwent 2 applications of Theraskin to this ulcer. Since application of Theraskin he had much improvement in epithelialization of his ulcer even though the overall size is not significantly changed there was progress. He is using Circaid compression wraps. Off-loading: The patient was instructed to avoid pressure and friction on the affected areas. Reposition every 2 hours at minimum. Avoid prolonged standing and/or dangling of legs. When seated, feet should be elevated at chest level. Frequent ambulation is encouraged. Encouraged lymphedema pump use. Diet: Patient encouraged to increase protein intake while taking caution to avoid high carbohydrate and/or sugar intake. Labs/cultures/imaging: Wound culture showed Pseudomonas, Escherichia hermannii, Raoultella planticola, Vancomycin Resist. E. faecalis, Alcaligenes faecalis ssp faeca, Staphylococcus cohnii urealyti and anaerobic bacteria on 06/15/24 and he completed on Levofloxacin and Augmentin. Wound culture taken today on right lateral ulcer which showed Raoultella planticola, Staph hemolyticus, staph epidermidis and morganella morganii but no anaeroobic bacteria, Levofloxacin and doxycyline were prescribed based on culture results. Labs ordered 10/19/2024. Vitamin D was low A1C 5.4% Wound culture from 12/07/24 was positive for Providencia stuartii, Vancomycin resistant E. Faecalis, Corynebacterium striatum and completed Augmentin orally. Follow-up: Return in 1 week for wound care follow up and have dressing changed by home health Tuesday. Return sooner or report to the emergency room should symptoms worsen, or new symptoms arise. Note: [employer] speech recognition food assembler software was used to create portions of this document. Sound-alike and misspelled words, as well as other food assembler errors may be contained in the documentation.
--- NOTE | 2025-02-18 12:00 | WC ---
PHOTO 02/15/25 RLE
--- NOTE | 2025-02-18 12:01 | WC ---
PHOTO 02/15/25 RLE
--- NOTE | 2025-02-18 12:02 | WC ---
PHOTO 02/15/25 SEEMA
--- NOTE | 2025-02-18 12:04 | WC ---
PHOTO 02/15/25 SEEMA
[2025-02-22 10:28] VITALS: BP 117/73; PULSE 67; RESP 18
--- NOTE | 2025-02-22 14:26 | PCM.WC.PN ---
History of Present Illness Date of Service: 02/22/25 Chief Complaint: venous ulcers of left lower extremity History of Wound: aMuricio is a 69 yo gentleman who is here today for evaluation of ulcers to to his bilateral lower legs. He has been treated multiple times in the past at the wound healing center for similar ulcers. The left LE ulcer started after he developed increased swelling and blisters of left leg in October and the right leg started sometime at the end of October. He was seen at PCP's office a culture was taken and it was resistant to several antibiotics. He was treated initially with Levaquin but had myalgias and then was treated with doxycycline which he finished 2 days ago. He denies improvement and is having swelling to his left calf and thigh. He has been having swelling to both lower extremities for many years and it has worsened over the last few months. He has not been compliant with compression. He has had increased pain especially in the left leg. He has clear yellow drainage and redness without odor or warmth. He is anti-coagulated on coumadin. He has been washing with Dial soap and witch ifrah. He had been using Collagen at times and using Calcium Alginate and covering with ABD pads during October. He was treated with 3M compression and Aquacel Ag. He was referred to the wound center for ongoing treatment. His ulcers have moderate to heavy drainage. He was in the hospital from 11/30/22 until 12/09/22 for treatment of cellulitis and edema. He underwent treatment with Vancomycin and IV lasix and compression. Discharged on 12/09/22. He returned to his assisted living apartment on Tuesday12/21/22. Subjective Subjective Mauricio is a 69-year-old male with longstanding history of chronic venous ulceration to the left lower extremity and now a right lower extremity venous ulcer that is nearly circumferential. There has been improvement in both ulcers over the last week. He is more compliant with elevation. Wound culture from 12/07/24 was positive for Providencia stuartii, Vancomycin resistant E. Faecalis, Corynebacterium striatum and completed Augmentin orally. His edema is better this week and he is tolerating Circaid compression. 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 He continues to use his lymphedema pumps but continues to have pain with use of these pumps. 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 Objective Data Objective Data Vital Signs: Vital Signs Temp Pulse Resp BP O2 Del Method 96.1 F L 67 18 117/73 Room Air 02/08/25 11:17 02/22/25 10:28 02/22/25 10:28 02/22/25 10:28 02/22/25 10:28 Oxygen Delivery Method Room Air Physical Exam Const alert, oriented x3 and no apparent distress General Appearance: cooperative and comfortable HEENT normocephalic and head/scalp atraumatic Lymph Lymphatic: lymphedema moderate Resp normal respiratory effort Effort and Inspection: able to speak in complete sentences Cardio regular rate and regular rhythm Extremity Extremity Narrative: His ulcers are painful and the right lower leg remains more swollen than his left but there is good granulation tissue throughout and slough that is nearly completely removed post - debridement, edges of ulcers are beveled without rolled borders General Extremity: edema bilateral lower extremity Details: severe Skin General Skin Exam: venous stasis and dermatitis Wounds: wounds noted Wound Narrative: as in clinical panel, + devitalized tissue, there is increased depth, + granulation tissue bilateral ulcer with good granulation and moderate to heavy slough prior to debridement and minimal post debridement Psych mental status grossly normal, thought process normal, cooperative and affect normal Debridement Note Debridement Note Wound debrided: left medial LE ulcer Laterality: Left Type of Debridement: Excisional debridement Anesthesia Used: 5% Lidocaine Gel and Cetacaine Depth: Down to and including healthy tissue and in the subcutaneous layer Percentage of wound debrided: 100 Instrument Used: - (Misonix ultrasonic debridement) Tissue Removed: Yellow slough, devitalized tissue Severity: Fat Layer Exposed Amount of bleeding with debridement: Mild Bleeding Controlled with: Compression and gauze Patient tolerated procedure: Patient tolerated procedure well Post-Debridement Measurements and Additional Note: Post-Debridement Measurements/Treatment WC - Nurse 1 - General Ulcer Assessment Start: 02/08/25 11:17 Freq: Status: Active Protocol: DEBBIE.LOWVALARIE Activity Type Activity Date Activity User E-sign Co-sign Detail Recorded Client Recorded Date Recorded By Document 02/08/25 11:17 ALEX [id number] 02/08/25 11:38 KW Document 02/15/25 11:47 KW [id number] 02/15/25 12:08 KW Document 02/22/25 10:28 KW [id number] 02/22/25 10:45 KW 02/08/25 02/15/25 02/22/25 11:17 11:47 10:28 - Today's Visit Information Type of service Follow-up Visit Follow-up Visit Follow-up Visit (Physician/ARCHITECTURAL PROJECT CAPTAIN (Physician/ARCHITECTURAL PROJECT CAPTAIN (Physician/ARCHITECTURAL PROJECT CAPTAIN ) ) ) Arrival Mode Ambulatory, Ambulatory, Ambulatory, Walker Walker Walker Patient Identification Verified (Name & Yes Yes Yes ) Vital Signs Temperature (97.8 F-99.1 F) 96.1 F L Temperature Source Temporal Temporal Pulse Rate (60-100) 65 63 67 Pulse Location Monitor Monitor Monitor Respiratory Rate (12-18) 16 18 18 Respiratory rate source Observation Observation Observation Oxygen Delivery Method Room Air Room Air Room Air Blood Pressure (90/60-120/80) 143/68 H 144/75 H 117/73 Blood Pressure Mean (mm Hg) 93 98 87 Source Monitor Monitor Monitor Position Semi-Fowlers Semi-Fowlers Semi-Fowlers Blood Pressure Location Right Arm Right Arm Left Arm History Since Last Visit- (Skip if this is Patient's initial visit) Have you changed medications since your No No No last visit? Any new allergies or adverse reactions No No No Had a fall/change in ADL's that may No No No increase risk of falls Signs or symptoms of abuse and/or No No No neglect since last visit Have you been in the hospital since your No No No last visit? Has dressing in place as prescribed Yes Yes Yes Has compression in place as prescribed Yes Yes Yes Has offloadiing in place as prescribed N/A N/A N/A Experienced any changes in pain level or No No No management Left Footwear Regular Shoe Regular Shoe Regular Shoe Right Footwear Regular Shoe Regular Shoe Regular Shoe Pain Scale: 0-10 Numeric Is Patient Pain Free? Yes Yes Yes - Nurse 1 - General Ulcer Measurement Start: 02/08/25 11:17 Freq: Status: Active Protocol: Activity Type Activity Date Activity User E-sign Co-sign Detail Recorded Client Recorded Date Recorded By Document 02/08/25 11:17 KW [id number] 02/08/25 11:38 KW Document 02/15/25 11:47 [id number] 02/15/25 12:08 KW Document 02/22/25 10:28 KW [id number] 02/22/25 10:45 KW 02/08/25 02/15/25 02/22/25 11:17 11:47 10:28 Wound Center Nurse 1 #24 Left Lateral Leg -Current Size (cm) - Length 2.7 0.1 2.3 -Current Size (cm) - Width 3.2 0.1 1.4 -Current Size (cm) - Depth 0.1 0.1 0.2 -Total Square Cm 8.64 0.01 3.22 -Date of Last Picture (Recall this 02/15/25 field) -Exudate Amt Small Large Medium -Exudate Type Serosanguineous Serosanguineous Serosanguineous -Wound Margin Distinct, Distinct, Distinct, Outline Outline Outline Attached Attached Attached -Granulation Amt Medium (34-66%) Medium (34-66%) Large (67-100%) -Granulation Quality [place] Red Red -Necrosis Amt Small (1-33%) Medium (34-66%) Small (1-33%) -Necrotic Tissue Type Adherent Slough Adherent Slough Adherent Slough -Texture (Marie-wound Skin Appearance) Assessed Assessed Assessed -Moisture (Marie-wound Skin Appearance) Assessed Assessed Assessed -Color (Marie-wound Skin Appearance) Assessed, Assessed, Assessed, Hemosiderin Hemosiderin Hemosiderin Staining Staining Staining -Temperature (Marie-wound Skin No Abnormality No Abnormality No Abnormality Appearance) (Pt Warm) (Pt Warm) (Pt Warm) -Tenderness on Palpation (Marie-wound No No No Skin Appearance) -Ulcer Cleansing Soap and Water Soap and Water Soap and Water -Foul Odor after Cleansing No No No -Anesthetic Used 5% Lidocaine 5% Lidocaine 5% Lidocaine Gel Gel Gel #22 R Medial Lateral -Current Size (cm) - Length 28 0.1 10.5 -Current Size (cm) - Width 10.5 0.1 28.5 -Current Size (cm) - Depth 0.2 0.1 0.2 -Total Square Cm 294.0 0.01 299.25 -Date of Last Picture (Recall this 02/15/25 field) -Exudate Amt Large Large Large -Exudate Type Serosanguineous Serosanguineous Serosanguineous -Wound Margin Distinct, Distinct, Thickened Outline Outline Attached Attached -Granulation Amt Large (67-100%) Medium (34-66%) Large (67-100%) -Granulation Quality Red Red Red -Necrosis Amt Medium (34-66%) Medium (34-66%) Medium (34-66%) -Necrotic Tissue Type Adherent Slough Adherent Slough Adherent Slough -Texture (Marie-wound Skin Appearance) Assessed Assessed Assessed -Moisture (Marie-wound Skin Appearance) Assessed Assessed Assessed -Color (Marie-wound Skin Appearance) Assessed, Assessed, Assessed, Hemosiderin Hemosiderin Hemosiderin Staining Staining Staining -Temperature (Marie-wound Skin No Abnormality No Abnormality No Abnormality Appearance) (Pt Warm) (Pt Warm) (Pt Warm) -Tenderness on Palpation (Marie-wound No No No Skin Appearance) -Ulcer Cleansing Soap and Water Soap and Water Soap and Water -Foul Odor after Cleansing No No No -Anesthetic Used 5% Lidocaine 5% Lidocaine 5% Lidocaine Gel Gel Gel #18 Left medial LE cluster -Current Size (cm) - Length 15 0.1 9 -Current Size (cm) - Width 8.5 0.1 13.5 -Current Size (cm) - Depth 0.2 0.1 0.2 -Total Square Cm 127.5 0.01 121.5 -Date of Last Picture (Recall this 02/15/25 field) -Exudate Amt Large Large Medium -Exudate Type Serosanguineous Serosanguineous Serosanguineous -Wound Margin Distinct, Distinct, Distinct, Outline Outline Outline Attached Attached Attached -Granulation Amt Large (67-100%) Medium (34-66%) Large (67-100%) -Granulation Quality Red Red Red -Necrosis Amt Medium (34-66%) Medium (34-66%) Small (1-33%) -Necrotic Tissue Type Adherent Slough Adherent Slough Adherent Slough -Texture (Maire-wound Skin Appearance) Assessed Assessed Assessed -Moisture (Marie-wound Skin Appearance) Assessed Assessed Assessed -Color (Marie-wound Skin Appearance) Assessed, Assessed, Assessed, Hemosiderin Erythema, Erythema, Staining Hemosiderin Hemosiderin Staining Staining -Temperature (Marie-wound Skin No Abnormality No Abnormality No Abnormality Appearance) (Pt Warm) (Pt Warm) (Pt Warm) -Tenderness on Palpation (Marie-wound No No No Skin Appearance) -Ulcer Cleansing Soap and Water Soap and Water Soap and Water -Foul Odor after Cleansing No No No -Anesthetic Used 5% Lidocaine 5% Lidocaine 5% Lidocaine Gel Gel Gel Right Calf (cm) 47.2 44.5 45 Right Ankle (cm) 30.5 30 30 Left Calf (cm) 44 42 42.5 Left Ankle (cm) 29 30 30.5 WC - Nurse 2 - General Ulcer CM Notes Start: 02/08/25 11:17 Freq: Status: Active Protocol: Activity Type Activity Date Activity User E-sign Co-sign Detail Recorded Client Recorded Date Recorded By Document 02/08/25 12:03 [id number] 02/08/25 12:16 Document 02/15/25 12:48 [id number] 02/15/25 13:01 Document 02/22/25 11:20 [id number] 02/22/25 11:32 02/08/25 02/15/25 02/22/25 12:03 12:48 11:20 Wound Center Nurse 2 #24 Left Lateral Leg -Time 12:03 12:48 11:21 -Correct Patient Yes Yes Yes -Correct Side, Site, Position Yes Yes Yes -Correct Procedure Yes Yes Yes -Procedure Performed Yes Yes Yes -Type of Procedure Debridement Debridement Debridement -Clinical Debridement Subcutaneous Subcutaneous Subcutaneous -Tissue Removed Subcutaneous Subcutaneous Subcutaneous -Post Debridement (cm) - Length 2.4 2.1 2.3 -Post Debridement (cm) - Width 1.6 1.3 1.5 -Post Debridement (cm) - Depth 0.1 0.1 0.1 -Total Square (Post) (cm) 3.84 2.73 3.45 -Area of Debridement (cm) - Length 2.4 2.1 2.3 -Area of Debridement (cm) - Width 1.6 1.3 1.5 -Total Square (Area) (cm) 3.84 2.73 3.45 -Tunneling No No No -Undermining/Tunneling No No No -Circular Undermining No No No -Wound/Ulcer Outcome Not Healed Not Healed Not Healed -Ulcer Cleansing Rinsed/ Rinsed/ Rinsed/ Irrigated with Irrigated with Irrigated with Saline Saline Saline -Foul Odor after Cleansing No No No -Bioengineered Tissue No No No -Bleeding Controlled with Pressure Pressure Pressure -Treatment Response Procedure Procedure Procedure Tolerated Well Tolerated Well Tolerated Well -Offloading No No No -Assistive Device(s) Walker -Debridement - Subq, 1st 20sq cm No No No #22 R Medial Lateral -Time 12:04 12:48 11:21 -Correct Patient Yes Yes Yes -Correct Side, Site, Position Yes Yes Yes -Correct Procedure Yes Yes Yes -Procedure Performed Yes Yes Yes -Type of Procedure Debridement Debridement Debridement -Clinical Debridement Subcutaneous Subcutaneous Subcutaneous -Tissue Removed Subcutaneous Subcutaneous Subcutaneous -Post Debridement (cm) - Length 11.8 11.5 11.5 -Post Debridement (cm) - Width 27.0 26.0 27.0 -Post Debridement (cm) - Depth 0.1 0.1 0.1 -Total Square (Post) (cm) 318.60 299.00 310.50 -Area of Debridement (cm) - Length 11.8 11.5 -Area of Debridement (cm) - Width 27.0 27.0 -Total Square (Area) (cm) 318.60 310.50 -Tunneling No No No -Undermining/Tunneling No No No -Circular Undermining No No No -Wound/Ulcer Outcome Not Healed Not Healed Not Healed -Ulcer Cleansing Rinsed/ Rinsed/ Rinsed/ Irrigated with Irrigated with Irrigated with Saline Saline Saline -Foul Odor after Cleansing No No No -Bioengineered Tissue No No No -Bleeding Controlled with Pressure Pressure Pressure -Treatment Response Procedure Procedure Procedure Tolerated Well Tolerated Well Tolerated Well -Offloading No No No -Assistive Device(s) Walker -Debridement - Subq, 1st 20sq cm No No No #18 Left medial LE cluster -Time 12:04 12:49 11:22 -Correct Patient Yes Yes Yes -Correct Side, Site, Position Yes Yes Yes -Correct Procedure Yes Yes Yes -Procedure Performed Yes Yes Yes -Type of Procedure Debridement Debridement Debridement -Clinical Debridement Subcutaneous Subcutaneous Subcutaneous -Tissue Removed Subcutaneous Subcutaneous Subcutaneous -Post Debridement (cm) - Length 8.5 8.5 8.6 -Post Debridement (cm) - Width 12.8 12.9 12.8 -Post Debridement (cm) - Depth 0.1 0.1 0.1 -Total Square (Post) (cm) 108.80 109.65 110.08 -Area of Debridement (cm) - Length 8.5 8.5 8.6 -Area of Debridement (cm) - Width 12.8 12.9 12.8 -Total Square (Area) (cm) 108.80 109.65 110.08 -Tunneling No No No -Undermining/Tunneling No No No -Circular Undermining No No No -Wound/Ulcer Outcome Not Healed Not Healed Not Healed -Ulcer Cleansing Rinsed/ Rinsed/ Rinsed/ Irrigated with Irrigated with Irrigated with Saline Saline Saline -Foul Odor after Cleansing No No No -Bioengineered Tissue No No No -Bleeding Controlled with Pressure Pressure Pressure -Treatment Response Procedure Procedure Procedure Tolerated Well Tolerated Well Tolerated Well -Offloading No No No -Debridement - Subq, 1st 20sq cm Yes Yes Yes -Debridement, SubQ, ea addt'l 20sq cm 21 20 21 or part thereof Pain Scale: 0-10 Numeric Is Patient Pain Free? Yes Yes Yes - Nurse 3 - General Ulcer D/C NN Start: 02/08/25 11:17 Freq: Status: Active Protocol: Activity Type Activity Date Activity User E-sign Co-sign Detail Recorded Client Recorded Date Recorded By Document 02/08/25 12:41 [id number] 02/08/25 12:44 [email or web address] 02/08/25 12:41 Wound Care Center Nurse 3 #24 Left Lateral Leg -Ulcer Cleansing Rinsed/ Irrigated with Saline -Primary Dressing Applied Aquacel Extra -Other Dressing ABD -Primary Dressing Covered/Secured with Dry Gauze & Roll Gauze, Secured with Tape -Aquacel Extra 1 #22 R Medial Lateral -Ulcer Cleansing Rinsed/ Irrigated with Saline -Primary Dressing Applied Aquacel Extra, Optilok 6.5x10 -Primary Dressing Covered/Secured with Dry Gauze & Roll Gauze, Secured with Tape -Aquacel Extra 1 -Optilok 6.5x10 1 #18 Left medial LE cluster -Ulcer Cleansing Rinsed/ Irrigated with Saline -Primary Dressing Applied Aquacel Extra, Optilok 6.5x10 -Primary Dressing Covered/Secured with Dry Gauze & Roll Gauze, Secured with Tape -Aquacel Extra 1 -Optilok 6.5x10 1 BLE -Stockings Yes: pt own circaids Treatment Response Procedure Tolerated Well Pain Scale: 0-10 Numeric Is Patient Pain Free? Yes WC - Visit Discharge Discharge Condition Stable Ambulatory Status Ambulatory, Walker Transportation Private Auto Medication Reconcilliation completed & No provided to patient/care provider Clinical Summary of Care Provided Yes Additional Wound Wound debrided: right lateral leg Laterality: Right Type of Debridement: Excisional debridement Anesthesia Used: 5% Lidocaine Gel and Cetacaine Depth: Down to and including healthy tissue and in the subcutaneous layer Percentage of wound debrided: 100 Instrument Used: - (Misonix ultrasonic debridement) Tissue Removed: Yellow slough, devitalized tissue Severity: Fat Layer Exposed Amount of bleeding with debridement: Mild Bleeding Controlled with: Compression and gauze Patient tolerated procedure: Patient tolerated procedure well Additional Wound Wound debrided: right medial leg Laterality: Right Type of Debridement: Excisional debridement Anesthesia Used: 5% Lidocaine Gel and Cetacaine Depth: Down to and including healthy tissue and in the subcutaneous layer Percentage of wound debrided: 100 Instrument Used: - (Misonix ultrasonic debridement) Tissue Removed: Yellow slough, devitalized tissue Severity: Fat Layer Exposed Amount of bleeding with debridement: Mild Bleeding Controlled with: Compression and gauze Patient tolerated procedure: Patient tolerated procedure well Assessment/Plan Assessment/Plan (1) Lymphedema: CODE(S): I89.0 - Lymphedema, not elsewhere classified (2) Hypertension: CODE(S): I10 - Essential (primary) hypertension QUALIFIERS: Hypertension type: primary hypertension Qualified Code(s): I10 - Essential (primary) hypertension (3) Hyperlipidemia: CODE(S): E78.5 - Hyperlipidemia, unspecified QUALIFIERS: Hyperlipidemia type: mixed hyperlipidemia Qualified Code(s): E78.2 - Mixed hyperlipidemia (4) History of DVT (deep vein thrombosis): CODE(S): Z86.718 - Personal history of other venous thrombosis and embolism (5) Venous insufficiency (chronic) (peripheral): CODE(S): I87.2 - Venous insufficiency (chronic) (peripheral) (6) Venous ulcer of left lower extremity with varicose veins: CODE(S): I83.029 - Varicose veins of left lower extremity with ulcer of unspecified site (7) Edema: CODE(S): R60.9 - Edema, unspecified QUALIFIERS: Edema type: unspecified Qualified Code(s): R60.9 - Edema, unspecified (8) 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 At home wound-care instructions: Will use Circaid compression garments with calcium alginate and super absorber to right LE and ABD to left LE changed every other day. Due to his chronic lymphedema and being unable to don traditional compression stockings and the presence of venous ulcers on his LE b/l, it is medically necessary for him to have Circaid compression garments. He is using Circaid compression to both legs. I suspect he is not very compliant with his lymphedema pumps and not getting adequate compression with tubigrips. Due to the delayed progress in wound healing of his venous ulcers, we discussed applying for advanced wound healing product for healing his ulcer. Due to the size of his ulcer, Theraskin application approval was requested from his insurance as it is medically necessary for salvaging his limb and healing his ulcer. He underwent 2 applications of Theraskin to this ulcer. Since application of Theraskin he had much improvement in epithelialization of his ulcer even though the overall size is not significantly changed there was progress. He is using Circaid compression wraps. Off-loading: The patient was instructed to avoid pressure and friction on the affected areas. Reposition every 2 hours at minimum. Avoid prolonged standing and/or dangling of legs. When seated, feet should be elevated at chest level. Frequent ambulation is encouraged. Encouraged lymphedema pump use. Diet: Patient encouraged to increase protein intake while taking caution to avoid high carbohydrate and/or sugar intake. Labs/cultures/imaging: Wound culture showed Pseudomonas, Escherichia hermannii, Raoultella planticola, Vancomycin Resist. E. faecalis, Alcaligenes faecalis ssp faeca, Staphylococcus cohnii urealyti and anaerobic bacteria on 06/15/24 and he completed on Levofloxacin and Augmentin. Wound culture taken today on right lateral ulcer which showed Raoultella planticola, Staph hemolyticus, staph epidermidis and morganella morganii but no anaeroobic bacteria, Levofloxacin and doxycyline were prescribed based on culture results. Labs ordered 10/19/2024. Vitamin D was low A1C 5.4% Wound culture from 12/07/24 was positive for Providencia stuartii, Vancomycin resistant E. Faecalis, Corynebacterium striatum and completed Augmentin orally. Follow-up: Return in 1 week for wound care follow up and have dressing changed by home health Tuesday. Return sooner or report to the emergency room should symptoms worsen, or new symptoms arise. Note: Hello Curry speech recognition clay processing labourer software was used to create portions of this document. Sound-alike and misspelled words, as well as other clay processing labourer errors may be contained in the documentation.
[2025-03-01 11:29] VITALS: BP 146/77; PULSE 61; RESP 18; TEMP 36.1
--- NOTE | 2025-03-01 13:32 | PN.PCM_ITS ---
History of Present Illness Date of Service: 03/01/25 Chief Complaint: venous ulcers of left lower extremity History of Wound: Mauricio is a 69 yo gentleman who is here today for evaluation of ulcers to to his bilateral lower legs. He has been treated multiple times in the past at the wound healing center for similar ulcers. The left LE ulcer started after he developed increased swelling and blisters of left leg in October and the right leg started sometime at the end of October. He was seen at PCP's office a culture was taken and it was resistant to several antibiotics. He was treated initially with Levaquin but had myalgias and then was treated with doxycycline which he finished 2 days ago. He denies improvement and is having swelling to his left calf and thigh. He has been having swelling to both lower extremities for many years and it has worsened over the last few months. He has not been compliant with compression. He has had increased pain especially in the left leg. He has clear yellow drainage and redness without odor or warmth. He is anti- coagulated on coumadin. He has been washing with Dial soap and witch ifrah. He had been using Collagen at times and using Calcium Alginate and covering with ABD pads during October. He was treated with 3M compression and Aquacel Ag. He was referred to the wound center for ongoing treatment. His ulcers have moderate to heavy drainage. He was in the hospital from 11/30/22 until 12/09/22 for treatment of cellulitis and edema. He underwent treatment with Vancomycin and IV lasix and compression. Discharged on 12/09/22. He returned to his assisted living apartment on Tuesday12/21/22. Subjective Subjective Mauricio is a 69-year-old male with longstanding history of chronic venous ulceration to the left lower extremity and now a right lower extremity venous ulcer that is nearly circumferential. There continues to be mild improvement in both ulcers over the last week. He is more compliant with elevation. Wound culture from 12/07/24 was positive for Providencia stuartii, Vancomycin resistant E. Faecalis, Corynebacterium striatum and completed Augmentin orally. His edema is better this week and he is tolerating Circaid compression. 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 He continues to use his lymphedema pumps but continues to have pain with use of these pumps. Vascular surgery saw him and he has iliocaval obstruct ion with infrarenal IVC and multiple pelvic and abdominal venous collaterals which his lower extremity wounds are most likely felt to be a sequela from venous hypertension and he underwent successful vascular intervention on 01/07/25. Objective Data Objective Data Vital Signs: Vital Signs Temp Pulse Resp BP O2 Del Method 97.0 F L 61 18 146/77 H Room Air 03/01/25 11:29 03/01/25 11:29 03/01/25 11:29 03/01/25 11:29 03/01/25 11:29 Oxygen Delivery Method Room Air Physical Exam Const alert, oriented x3 and no apparent distress General Appearance: cooperative and comfortable HEENT normocephalic and head/scalp atraumatic Lymph Lymphatic: lymphedema moderate Resp normal respiratory effort Effort and Inspection: able to speak in complete sentences Cardio regular rate and regular rhythm Extremity Extremity Narrative: His ulcers are painful and the right lower leg remains more swollen than his left but there is good granulation tissue throughout and slough that is nearly completely removed post - debridement, edges of ulcers are beveled without rolled borders General Extremity: edema bilateral lower extremity Details: severe Skin General Skin Exam: venous stasis and dermatitis Wounds: wounds noted Wound Narrative: as in clinical panel, + devitalized tissue, there is increased depth, + granulation tissue bilateral ulcer with good granulation and moderate to heavy slough prior to debridement and minimal post debridement Psych mental status grossly normal, thought process normal, cooperative and affect normal Debridement Note Debridement Note Wound debrided: left medial LE ulcer Laterality: Left Type of Debridement: Excisional debridement Anesthesia Used: 5% Lidocaine Gel and Cetacaine Depth: Down to and including healthy tissue and in the subcutaneous layer Percentage of wound debrided: 100 Instrument Used: - (Misonix ultrasonic debridement) Tissue Removed: Yellow slough, devitalized tissue Severity: Fat Layer Exposed Amount of bleeding with debridement: Mild Bleeding Controlled with: Compression and gauze Patient tolerated procedure: Patient tolerated procedure well Post-Debridement Measurements and Additional Note: Post-Debridement Measurements/Treatment WC - Nurse 1 - General Ulcer Assessment Start: 02/08/25 11:17 Freq: Status: Active Protocol: ONDINA Activity Type Activity Date Activity User E-sign Co-sign Detail Recorded Client Recorded Date Recorded By Document 02/08/25 11:17 ALEX [id number] 02/08/25 11:38 KW Document 02/15/25 11:47 KW [id number] 02/15/25 12:08 KW Document 02/22/25 10:28 KW [id number] 02/22/25 10:45 KW Document 03/01/25 11:29 DS [id number] 03/01/25 11:30 DS 02/08/25 02/15/25 02/22/25 11:17 11:47 10:28 WC - Today's Visit Information Type of service Follow-up Visit Follow-up Visit Follow-up Visit (Physician/WAFER POLISHING WORKER (Physician/WAFER POLISHING WORKER (Physician/WAFER POLISHING WORKER ) ) ) Arrival Mode Ambulatory, Ambulatory, Ambulatory, Walker Walker Walker Patient Identification Verified (Name & Yes Yes Yes ) Patient Requires Transmission-Based Precautions Safety Precautions Vital Signs Temperature (97.8 F-99.1 F) 96.1 F L Temperature Source Temporal Temporal Pulse Rate (60-100) 65 63 67 Pulse Location Monitor Monitor Monitor Respiratory Rate (12-18) 16 18 18 Respiratory rate source Observation Observation Observation Oxygen Delivery Method Room Air Room Air Room Air Blood Pressure (90/60-120/80) 143/68 H 144/75 H 117/73 Blood Pressure Mean (mm Hg) 93 98 87 Source Monitor Monitor Monitor Position Semi-Fowlers Semi-Fowlers Semi-Fowlers Blood Pressure Location Right Arm Right Arm Left Arm History Since Last Visit- (Skip if this is Patient's initial visit) Have you changed medications since your No No No last visit? Any new allergies or adverse reactions No No No Had a fall/change in ADL's that may No No No increase risk of falls Signs or symptoms of abuse and/or No No No neglect since last visit Have you been in the hospital since your No No No last visit? Has dressing in place as prescribed Yes Yes Yes Has compression in place as prescribed Yes Yes Yes Has offloadiing in place as prescribed N/A N/A N/A Experienced any changes in pain level or No No No management Left Footwear Regular Shoe Regular Shoe Regular Shoe Right Footwear Regular Shoe Regular Shoe Regular Shoe Pain Scale: 0-10 Numeric Is Patient Pain Free? Yes Yes Yes LLE -Description -Intensity -Duration (hours) -Pain Behavior -Alleviating Factors/Interventions 03/01/25 11:29 WC - Today's Visit Information Type of service Follow-up Visit (Physician/WAFER POLISHING WORKER ) Arrival Mode Ambulatory, Walker Patient Identification Verified (Name & Yes ) Patient Requires Transmission-Based No Precautions Safety Precautions Fall Prevention Vital Signs Temperature (97.8 F-99.1 F) 97.0 F L Temperature Source Temporal Pulse Rate (60-100) 61 Pulse Location Monitor Respiratory Rate (12-18) 18 Respiratory rate source Observation Oxygen Delivery Method Room Air Blood Pressure (90/60-120/80) 146/77 H Blood Pressure Mean (mm Hg) 100 Source Monitor Position Sitting Blood Pressure Location Right Arm History Since Last Visit- (Skip if this is Patient's initial visit) Have you changed medications since your No last visit? Any new allergies or adverse reactions No Had a fall/change in ADL's that may No increase risk of falls Signs or symptoms of abuse and/or No neglect since last visit Have you been in the hospital since your No last visit? Has dressing in place as prescribed Yes Has compression in place as prescribed Yes Has offloadiing in place as prescribed N/A Experienced any changes in pain level or No management Left Footwear Regular Shoe Right Footwear Regular Shoe Pain Scale: 0-10 Numeric Is Patient Pain Free? No LLE -Description Sharp,Throbbing -Intensity 7 -Duration (hours) Chronic -Pain Behavior No Change in Behavior -Alleviating Factors/Interventions Will continue to monitor, Emotional Support WC - Nurse 1 - General Ulcer Measurement Start: 02/08/25 11:17 Freq: Status: Active Protocol: Activity Type Activity Date Activity User E-sign Co-sign Detail Recorded Client Recorded Date Recorded By Document 02/08/25 11:17 KW [id number] 02/08/25 11:38 KW Document 02/15/25 11:47 KW [id number] 02/15/25 12:08 KW Document 02/22/25 10:28 KW [id number] 02/22/25 10:45 KW Document 03/01/25 11:30 DS [id number] 03/01/25 11:53 DS 02/08/25 02/15/25 02/22/25 11:17 11:47 10:28 Wound Center Nurse 1 #24 Left Lateral Leg -Current Size (cm) - Length 2.7 0.1 2.3 -Current Size (cm) - Width 3.2 0.1 1.4 -Current Size (cm) - Depth 0.1 0.1 0.2 -Total Square Cm 8.64 0.01 3.22 -Date of Last Picture (Recall this 02/15/25 field) -Photo Taken -Exudate Amt Small Large Medium -Exudate Type Serosanguineous Serosanguineous Serosanguineous -Wound Margin Distinct, Distinct, Distinct, Outline Outline Outline Attached Attached Attached -Granulation Amt Medium (34-66%) Medium (34-66%) Large (67-100%) -Granulation Quality [place] Red Red -Necrosis Amt Small (1-33%) Medium (34-66%) Small (1-33%) -Necrotic Tissue Type Adherent Slough Adherent Slough Adherent Slough -Texture (Marie-wound Skin Appearance) Assessed Assessed Assessed -Moisture (Marie-wound Skin Appearance) Assessed Assessed Assessed -Color (Marie-wound Skin Appearance) Assessed, Assessed, Assessed, Hemosiderin Hemosiderin Hemosiderin Staining Staining Staining -Temperature (Marie-wound Skin No Abnormality No Abnormality No Abnormality Appearance) (Pt Warm) (Pt Warm) (Pt Warm) -Tenderness on Palpation (Marie-wound No No No Skin Appearance) -Ulcer Cleansing Soap and Water Soap and Water Soap and Water -Foul Odor after Cleansing No No No -Anesthetic Used 5% Lidocaine 5% Lidocaine 5% Lidocaine Gel Gel Gel #22 R Medial Lateral -Current Size (cm) - Length 28 0.1 10.5 -Current Size (cm) - Width 10.5 0.1 28.5 -Current Size (cm) - Depth 0.2 0.1 0.2 -Total Square Cm 294.0 0.01 299.25 -Date of Last Picture (Recall this 02/15/25 field) -Photo Taken -Tunneling -Undermining/Tunneling -Circular Undermining -Exudate Amt Large Large Large -Exudate Type Serosanguineous Serosanguineous Serosanguineous -Wound Margin Distinct, Distinct, Thickened Outline Outline Attached Attached -Granulation Amt Large (67-100%) Medium (34-66%) Large (67-100%) -Granulation Quality Red Red Red -Necrosis Amt Medium (34-66%) Medium (34-66%) Medium (34-66%) -Necrotic Tissue Type Adherent Slough Adherent Slough Adherent Slough -Texture (Marie-wound Skin Appearance) Assessed Assessed Assessed -Moisture (Marie-wound Skin Appearance) Assessed Assessed Assessed -Color (Marie-wound Skin Appearance) Assessed, Assessed, Assessed, Hemosiderin Hemosiderin Hemosiderin Staining Staining Staining -Temperature (Marie-wound Skin No Abnormality No Abnormality No Abnormality Appearance) (Pt Warm) (Pt Warm) (Pt Warm) -Tenderness on Palpation (Marie-wound No No No Skin Appearance) -Ulcer Cleansing Soap and Water Soap and Water Soap and Water -Foul Odor after Cleansing No No No -Anesthetic Used 5% Lidocaine 5% Lidocaine 5% Lidocaine Gel Gel Gel #18 Left medial LE cluster -Current Size (cm) - Length 15 0.1 9 -Current Size (cm) - Width 8.5 0.1 13.5 -Current Size (cm) - Depth 0.2 0.1 0.2 -Total Square Cm 127.5 0.01 121.5 -Date of Last Picture (Recall this 02/15/25 field) -Photo Taken -Tunneling -Undermining/Tunneling -Circular Undermining -Exudate Amt Large Large Medium -Exudate Type Serosanguineous Serosanguineous Serosanguineous -Wound Margin Distinct, Distinct, Distinct, Outline Outline Outline Attached Attached Attached -Granulation Amt Large (67-100%) Medium (34-66%) Large (67-100%) -Granulation Quality Red Red Red -Necrosis Amt Medium (34-66%) Medium (34-66%) Small (1-33%) -Necrotic Tissue Type Adherent Slough Adherent Slough Adherent Slough -Texture (Marie-wound Skin Appearance) Assessed Assessed Assessed -Moisture (Marie-wound Skin Appearance) Assessed Assessed Assessed -Color (Marie-wound Skin Appearance) Assessed, Assessed, Assessed, Hemosiderin Erythema, Erythema, Staining Hemosiderin Hemosiderin Staining Staining -Temperature (Marie-wound Skin No Abnormality No Abnormality No Abnormality Appearance) (Pt Warm) (Pt Warm) (Pt Warm) -Tenderness on Palpation (Marie-wound No No No Skin Appearance) -Ulcer Cleansing Soap and Water Soap and Water Soap and Water -Foul Odor after Cleansing No No No -Anesthetic Used 5% Lidocaine 5% Lidocaine 5% Lidocaine Gel Gel Gel Right Calf (cm) 47.2 44.5 45 Right Ankle (cm) 30.5 30 30 Left Calf (cm) 44 42 42.5 Left Ankle (cm) 29 30 30.5 03/01/25 11:30 Wound Center Nurse 1 #24 Left Lateral Leg -Current Size (cm) - Length 2.0 -Current Size (cm) - Width 1.4 -Current Size (cm) - Depth 0.2 -Total Square Cm 2.80 -Date of Last Picture (Recall this field) -Photo Taken No -Exudate Amt -Exudate Type -Wound Margin Distinct, Outline Attached -Granulation Amt Medium (34-66%) -Granulation Quality [place] -Necrosis Amt Medium (34-66%) -Necrotic Tissue Type Adherent Slough -Texture (Marie-wound Skin Appearance) Assessed -Moisture (Marie-wound Skin Appearance) Assessed -Color (Marie-wound Skin Appearance) Assessed -Temperature (Marie-wound Skin No Abnormality Appearance) (Pt Warm) -Tenderness on Palpation (Marie-wound No Skin Appearance) -Ulcer Cleansing Soap and Water -Foul Odor after Cleansing No -Anesthetic Used 5% Lidocaine Gel #22 R Medial Lateral -Current Size (cm) - Length 11.5 -Current Size (cm) - Width 29.0 -Current Size (cm) - Depth 0.2 -Total Square Cm 333.50 -Date of Last Picture (Recall this field) -Photo Taken No -Tunneling No -Undermining/Tunneling No -Circular Undermining No -Exudate Amt -Exudate Type -Wound Margin Distinct, Outline Attached -Granulation Amt Medium (34-66%) -Granulation Quality [place] -Necrosis Amt Medium (34-66%) -Necrotic Tissue Type Adherent Slough -Texture (Marie-wound Skin Appearance) Assessed -Moisture (Marie-wound Skin Appearance) Assessed -Color (Marie-wound Skin Appearance) Assessed -Temperature (Marie-wound Skin No Abnormality Appearance) (Pt Warm) -Tenderness on Palpation (Marie-wound No Skin Appearance) -Ulcer Cleansing Soap and Water -Foul Odor after Cleansing No -Anesthetic Used 5% Lidocaine Gel #18 Left medial LE cluster -Current Size (cm) - Length 14.5 -Current Size (cm) - Width 8.0 -Current Size (cm) - Depth 0.2 -Total Square Cm 116.00 -Date of Last Picture (Recall this field) -Photo Taken No -Tunneling No -Undermining/Tunneling No -Circular Undermining No -Exudate Amt -Exudate Type -Wound Margin Distinct, Outline Attached -Granulation Amt Medium (34-66%) -Granulation Quality [place] -Necrosis Amt Medium (34-66%) -Necrotic Tissue Type Adherent Slough -Texture (Marie-wound Skin Appearance) Assessed -Moisture (Marie-wound Skin Appearance) Assessed -Color (Marie-wound Skin Appearance) Assessed -Temperature (Marie-wound Skin No Abnormality Appearance) (Pt Warm) -Tenderness on Palpation (Marie-wound No Skin Appearance) -Ulcer Cleansing Soap and Water -Foul Odor after Cleansing No -Anesthetic Used 5% Lidocaine Gel Right Calf (cm) 45.6 Right Ankle (cm) 30.5 Left Calf (cm) 41.2 Left Ankle (cm) 31.8 WC - Nurse 2 - General Ulcer CM Notes Start: 02/08/25 11:17 Freq: Status: Active Protocol: Activity Type Activity Date Activity User E-sign Co-sign Detail Recorded Client Recorded Date Recorded By Document 02/08/25 12:03 [id number] 02/08/25 12:16 Document 02/15/25 12:48 [id number] 02/15/25 13:01 Document 02/22/25 11:20 [id number] 02/22/25 11:32 Document 03/01/25 12:08 [id number] 03/01/25 12:25 02/08/25 02/15/25 02/22/25 12:03 12:48 11:20 Wound Center Nurse 2 #24 Left Lateral Leg -Time 12:03 12:48 11:21 -Correct Patient Yes Yes Yes -Correct Side, Site, Position Yes Yes Yes -Correct Procedure Yes Yes Yes -Procedure Performed Yes Yes Yes -Type of Procedure Debridement Debridement Debridement -Clinical Debridement Subcutaneous Subcutaneous Subcutaneous -Tissue Removed Subcutaneous Subcutaneous Subcutaneous -Post Debridement (cm) - Length 2.4 2.1 2.3 -Post Debridement (cm) - Width 1.6 1.3 1.5 -Post Debridement (cm) - Depth 0.1 0.1 0.1 -Total Square (Post) (cm) 3.84 2.73 3.45 -Area of Debridement (cm) - Length 2.4 2.1 2.3 -Area of Debridement (cm) - Width 1.6 1.3 1.5 -Total Square (Area) (cm) 3.84 2.73 3.45 -Tunneling No No No -Undermining/Tunneling No No No -Circular Undermining No No No -Wound/Ulcer Outcome Not Healed Not Healed Not Healed -Ulcer Cleansing Rinsed/ Rinsed/ Rinsed/ Irrigated with Irrigated with Irrigated with Saline Saline Saline -Foul Odor after Cleansing No No No -Bioengineered Tissue No No No -Bleeding Controlled with Pressure Pressure Pressure -Treatment Response Procedure Procedure Procedure Tolerated Well Tolerated Well Tolerated Well -Offloading No No No -Assistive Device(s) Walker -Debridement - Subq, 1st 20sq cm No No No #22 R Medial Lateral -Time 12:04 12:48 11:21 -Correct Patient Yes Yes Yes -Correct Side, Site, Position Yes Yes Yes -Correct Procedure Yes Yes Yes -Procedure Performed Yes Yes Yes -Type of Procedure Debridement Debridement Debridement -Clinical Debridement Subcutaneous Subcutaneous Subcutaneous -Tissue Removed Subcutaneous Subcutaneous Subcutaneous -Post Debridement (cm) - Length 11.8 11.5 11.5 -Post Debridement (cm) - Width 27.0 26.0 27.0 -Post Debridement (cm) - Depth 0.1 0.1 0.1 -Total Square (Post) (cm) 318.60 299.00 310.50 -Area of Debridement (cm) - Length 11.8 11.5 -Area of Debridement (cm) - Width 27.0 27.0 -Total Square (Area) (cm) 318.60 310.50 -Tunneling No No No -Undermining/Tunneling No No No -Circular Undermining No No No -Wound/Ulcer Outcome Not Healed Not Healed Not Healed -Ulcer Cleansing Rinsed/ Rinsed/ Rinsed/ Irrigated with Irrigated with Irrigated with Saline Saline Saline -Foul Odor after Cleansing No No No -Bioengineered Tissue No No No -Bleeding Controlled with Pressure Pressure Pressure -Treatment Response Procedure Procedure Procedure Tolerated Well Tolerated Well Tolerated Well -Offloading No No No -Assistive Device(s) Walker -Debridement - Subq, 1st 20sq cm No No No #18 Left medial LE cluster -Time 12:04 12:49 11:22 -Correct Patient Yes Yes Yes -Correct Side, Site, Position Yes Yes Yes -Correct Procedure Yes Yes Yes -Procedure Performed Yes Yes Yes -Type of Procedure Debridement Debridement Debridement -Clinical Debridement Subcutaneous Subcutaneous Subcutaneous -Tissue Removed Subcutaneous Subcutaneous Subcutaneous -Post Debridement (cm) - Length 8.5 8.5 8.6 -Post Debridement (cm) - Width 12.8 12.9 12.8 -Post Debridement (cm) - Depth 0.1 0.1 0.1 -Total Square (Post) (cm) 108.80 109.65 110.08 -Area of Debridement (cm) - Length 8.5 8.5 8.6 -Area of Debridement (cm) - Width 12.8 12.9 12.8 -Total Square (Area) (cm) 108.80 109.65 110.08 -Tunneling No No No -Undermining/Tunneling No No No -Circular Undermining No No No -Wound/Ulcer Outcome Not Healed Not Healed Not Healed -Ulcer Cleansing Rinsed/ Rinsed/ Rinsed/ Irrigated with Irrigated with Irrigated with Saline Saline Saline -Foul Odor after Cleansing No No No -Bioengineered Tissue No No No -Bleeding Controlled with Pressure Pressure Pressure -Treatment Response Procedure Procedure Procedure Tolerated Well Tolerated Well Tolerated Well -Offloading No No No -Debridement - Subq, 1st 20sq cm Yes Yes Yes -Debridement, SubQ, ea addt'l 20sq cm 21 20 21 or part thereof Pain Scale: 0-10 Numeric Is Patient Pain Free? Yes Yes Yes 03/01/25 12:08 Wound Center Nurse 2 #24 Left Lateral Leg -Time 12:08 -Correct Patient Yes -Correct Side, Site, Position Yes -Correct Procedure Yes -Procedure Performed Yes -Type of Procedure Debridement -Clinical Debridement Subcutaneous -Tissue Removed Subcutaneous -Post Debridement (cm) - Length 2.0 -Post Debridement (cm) - Width 1.2 -Post Debridement (cm) - Depth 0.1 -Total Square (Post) (cm) 2.40 -Area of Debridement (cm) - Length 2.0 -Area of Debridement (cm) - Width 1.2 -Total Square (Area) (cm) 2.40 -Tunneling No -Undermining/Tunneling No -Circular Undermining No -Wound/Ulcer Outcome Not Healed -Ulcer Cleansing Rinsed/ Irrigated with Saline -Foul Odor after Cleansing No -Bioengineered Tissue No -Bleeding Controlled with Pressure -Treatment Response Procedure Tolerated Well -Offloading -Assistive Device(s) Walker -Debridement - Subq, 1st 20sq cm No #22 R Medial Lateral -Time 12:09 -Correct Patient Yes -Correct Side, Site, Position Yes -Correct Procedure Yes -Procedure Performed Yes -Type of Procedure Debridement -Clinical Debridement Subcutaneous -Tissue Removed Subcutaneous -Post Debridement (cm) - Length 11.0 -Post Debridement (cm) - Width 26.3 -Post Debridement (cm) - Depth 0.1 -Total Square (Post) (cm) 289.30 -Area of Debridement (cm) - Length 11.0 -Area of Debridement (cm) - Width 26.3 -Total Square (Area) (cm) 289.30 -Tunneling No -Undermining/Tunneling No -Circular Undermining No -Wound/Ulcer Outcome Not Healed -Ulcer Cleansing Rinsed/ Irrigated with Saline -Foul Odor after Cleansing No -Bioengineered Tissue No -Bleeding Controlled with Pressure -Treatment Response Procedure Tolerated Well -Offloading No -Assistive Device(s) -Debridement - Subq, 1st 20sq cm No #18 Left medial LE cluster -Time 12:09 -Correct Patient Yes -Correct Side, Site, Position Yes -Correct Procedure Yes -Procedure Performed Yes -Type of Procedure Debridement -Clinical Debridement Subcutaneous -Tissue Removed Subcutaneous -Post Debridement (cm) - Length 8.5 -Post Debridement (cm) - Width 13.5 -Post Debridement (cm) - Depth 0.1 -Total Square (Post) (cm) 114.75 -Area of Debridement (cm) - Length 8.5 -Area of Debridement (cm) - Width 13.5 -Total Square (Area) (cm) 114.75 -Tunneling No -Undermining/Tunneling No -Circular Undermining No -Wound/Ulcer Outcome Not Healed -Ulcer Cleansing Rinsed/ Irrigated with Saline -Foul Odor after Cleansing No -Bioengineered Tissue No -Bleeding Controlled with Pressure -Treatment Response Procedure Tolerated Well -Offloading No -Debridement - Subq, 1st 20sq cm Yes -Debridement, SubQ, ea addt'l 20sq cm 20 or part thereof Pain Scale: 0-10 Numeric Is Patient Pain Free? Yes WC - Nurse 3 - General Ulcer D/C NN Start: 02/08/25 11:17 Freq: Status: Active Protocol: Activity Type Activity Date Activity User E-sign Co-sign Detail Recorded Client Recorded Date Recorded By Document 02/08/25 12:41 RB [id number] 02/08/25 12:44 RB Document 03/01/25 12:32 DS [id number] 03/01/25 12:48 DS Edit Result 03/01/25 12:32 DS (1) [id number] 03/01/25 12:57 DS (1) #22 R Medial Lateral - Optilok 6.5x10 1 => 2 #18 Left medial LE cluster - Optilok 6.5x10 1 => 0 02/08/25 03/01/25 12:41 12:32 Wound Care Center Nurse 3 #24 Left Lateral Leg -Ulcer Cleansing Rinsed/ Irrigated with Saline -Primary Dressing Applied Aquacel Extra Optilok 6.5x10 -Other Dressing ABD -Primary Dressing Covered/Secured with Dry Gauze & Roll Gauze, Secured with Tape -Aquacel Extra 1 -Optilok 6.5x10 1 #22 R Medial Lateral -Ulcer Cleansing Rinsed/ Irrigated with Saline -Primary Dressing Applied Aquacel Extra, Optilok 6.5x10 Optilok 6.5x10 -Primary Dressing Covered/Secured with Dry Gauze & Roll Gauze, Secured with Tape -Aquacel Extra 1 -Optilok 6.5x10 1 2 #18 Left medial LE cluster -Ulcer Cleansing Rinsed/ Irrigated with Saline -Primary Dressing Applied Aquacel Extra, Optilok 6.5x10 Optilok 6.5x10 -Primary Dressing Covered/Secured with Dry Gauze & Roll Gauze, Secured with Tape -Aquacel Extra 1 -Optilok 6.5x10 1 0 BLE -Stockings Yes: pt own circaids -Other CIRCAIDES Treatment Response Procedure Tolerated Well Pain Scale: 0-10 Numeric Is Patient Pain Free? Yes Yes - Visit Discharge Discharge Condition Stable Stable Ambulatory Status Ambulatory, Ambulatory, Walker Walker Transportation Private Auto Medication Reconcilliation completed & No provided to patient/care provider Clinical Summary of Care Provided Yes Additional Wound Wound debrided: right lateral leg Laterality: Right Type of Debridement: Excisional debridement Anesthesia Used: 5% Lidocaine Gel and Cetacaine Depth: Down to and including healthy tissue and in the subcutaneous layer Percentage of wound debrided: 100 Instrument Used: - (Misonix ultrasonic debridement) Tissue Removed: Yellow slough, devitalized tissue Severity: Fat Layer Exposed Amount of bleeding with debridement: Mild Bleeding Controlled with: Compression and gauze Patient tolerated procedure: Patient tolerated procedure well Additional Wound Wound debrided: right medial leg Laterality: Right Type of Debridement: Excisional debridement Anesthesia Used: 5% Lidocaine Gel and Cetacaine Depth: Down to and including healthy tissue and in the subcutaneous layer Percentage of wound debrided: 100 Instrument Used: - (Misonix ultrasonic debridement) Tissue Removed: Yellow slough, devitalized tissue Severity: Fat Layer Exposed Amount of bleeding with debridement: Mild Bleeding Controlled with: Compression and gauze Patient tolerated procedure: Patient tolerated procedure well Assessment/Plan Assessment/Plan (1) Lymphedema: CODE(S): I89.0 - Lymphedema, not elsewhere classified (2) Hypertension: CODE(S): I10 - Essential (primary) hypertension QUALIFIERS: Hypertension type: primary hypertension Qualified Code(s): I10 - Essential (primary) hypertension (3) Hyperlipidemia: CODE(S): E78.5 - Hyperlipidemia, unspecified QUALIFIERS: Hyperlipidemia type: mixed hyperlipidemia Qualified Code(s): E78.2 - Mixed hyperlipidemia (4) History of DVT (deep vein thrombosis): CODE(S): Z86.718 - Personal history of other venous thrombosis and embolism (5) Venous insufficiency (chronic) (peripheral): CODE(S): I87.2 - Venous insufficiency (chronic) (peripheral) (6) Venous ulcer of left lower extremity with varicose veins: CODE(S): I83.029 - Varicose veins of left lower extremity with ulcer of unspecified site (7) Edema: CODE(S): R60.9 - Edema, unspecified QUALIFIERS: Edema type: unspecified Qualified Code(s): R60.9 - Edema, unspecified (8) 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 At home wound-care instructions: Will use Circaid compression garments with super absorber and kerlix to right LE and left LE changed every other day. Due to his chronic lymphedema and being unable to don traditional compression stockings and the presence of venous ulcers on his LE b/l, it is medically necessary for him to have Circaid compression garments. He is using Circaid compression to both legs. I suspect he is not very compliant with his lymphedema pumps and not getting adequate compression with tubigrips. Due to the delayed progress in wound healing of his venous ulcers, we discussed applying for advanced wound healing product for healing his ulcer. Due to the size of his ulcer, Theraskin application approval was requested from his insurance as it is medically necessary for salvaging his limb and healing his ulcer. He underwent 2 applications of Theraskin to this ulcer. Since application of Theraskin he had much improvement in epithelialization of his ulcer even though the overall size is not significantly changed there was progress. He is using Circaid compression wraps. Off-loading: The patient was instructed to avoid pressure and friction on the affected areas. Reposition every 2 hours at minimum. Avoid prolonged standing and/or dangling of legs. When seated, feet should be elevated at chest level. Frequent ambulation is encouraged. Encouraged lymphedema pump use. Diet: Patient encouraged to increase protein intake while taking caution to avoid high carbohydrate and/or sugar intake. Labs/cultures/imaging: Wound culture showed Pseudomonas, Escherichia hermannii, Raoultella planticola, Vancomycin Resist. E. faecalis, Alcaligenes faecalis ssp faeca, Staphylococcus cohnii urealyti and anaerobic bacteria on 06/15/24 and he completed on Levofloxacin and Augmentin. Wound culture taken today on right lateral ulcer which showed Raoultella planticola, Staph hemolyticus, staph epid ermidis and morganella morganii but no anaeroobic bacteria, Levofloxacin and doxycyline were prescribed based on culture results. Labs ordered 10/19/2024. Vitamin D was low A1C 5.4% Wound culture from 12/07/24 was positive for Providencia stuartii, Vancomycin resistant E. Faecalis, Corynebacterium striatum and completed Augmentin orally. Follow-up: Return in 1 week for wound care follow up and have dressing changed by home health Tuesday. Return sooner or report to the emergency room should symptoms worsen, or new symptoms arise. Note: [employer] speech recognition mushroom growth media mixer software was used to create portions of this document. Sound-alike and misspelled words, as well as other mushroom growth media mixer errors may be contained in the documentation.
[2025-03-08 11:32] VITALS: BP 138/89; PULSE 68; RESP 16; TEMP 35.8
--- NOTE | 2025-03-08 14:46 | PN.PCM_ITS ---
History of Present Illness Date of Service: 03/08/25 Chief Complaint: venous ulcers of left lower extremity History of Wound: Mauricio is a 69 yo gentleman who is here today for evaluation of ulcers to to his bilateral lower legs. He has been treated multiple times in the past at the wound healing center for similar ulcers. The left LE ulcer started after he developed increased swelling and blisters of left leg in October and the right leg started sometime at the end of October. He was seen at PCP's office a culture was taken and it was resistant to several antibiotics. He was treated initially with Levaquin but had myalgias and then was treated with doxycycline which he finished 2 days ago. He denies improvement and is having swelling to his left calf and thigh. He has been having swelling to both lower extremities for many years and it has worsened over the last few months. He has not been compliant with compression. He has had increased pain especially in the left leg. He has clear yellow drainage and redness without odor or warmth. He is anti- coagulated on coumadin. He has been washing with Dial soap and witch ifrah. He had been using Collagen at times and using Calcium Alginate and covering with ABD pads during October. He was treated with 3M compression and Aquacel Ag. He was referred to the wound center for ongoing treatment. His ulcers have moderate to heavy drainage. He was in the hospital from 11/30/22 until 12/09/22 for treatment of cellulitis and edema. He underwent treatment with Vancomycin and IV lasix and compression. Discharged on 12/09/22. He returned to his assisted living apartment on Tuesday12/21/22. Subjective Subjective Mauricio is a 69-year-old male with longstanding history of chronic venous ulceration to the left lower extremity and now a right lower extremity venous ulcer that is nearly circumferential. There continues to be mild improvement in both ulcers over the last week. He is more compliant with elevation. Wound culture from 12/07/24 was positive for Providencia stuartii, Vancomycin resistant E. Faecalis, Corynebacterium striatum and completed Augmentin orally. His edema is better this week and he is tolerating Circaid compression. 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 He continues to use his lymphedema pumps but continues to have pain with use of these pumps. Vascular surgery saw him and he has iliocaval obstruct ion with infrarenal IVC and multiple pelvic and abdominal venous collaterals which his lower extremity wounds are most likely felt to be a sequela from venous hypertension and he underwent successful vascular intervention on 01/07/25. Objective Data Objective Data Vital Signs: Vital Signs Temp Pulse Resp BP O2 Del Method 96.5 F L 68 16 138/89 H Room Air 03/08/25 11:32 03/08/25 11:32 03/08/25 11:32 03/08/25 11:32 03/08/25 11:32 Oxygen Delivery Method Room Air Physical Exam Const alert, oriented x3 and no apparent distress General Appearance: cooperative and comfortable HEENT normocephalic and head/scalp atraumatic Lymph Lymphatic: lymphedema moderate Resp normal respiratory effort Effort and Inspection: able to speak in complete sentences Cardio regular rate and regular rhythm Extremity Extremity Narrative: His ulcers are painful and the right lower leg remains more swollen than his left but there is good granulation tissue throughout and slough that is nearly completely removed post - debridement, edges of ulcers are beveled without rolled borders General Extremity: edema bilateral lower extremity Details: severe Skin General Skin Exam: venous stasis and dermatitis Wounds: wounds noted Wound Narrative: as in clinical panel, + devitalized tissue, there is increased depth, + granulation tissue bilateral ulcer with good granulation and moderate to heavy slough prior to debridement and minimal post debridement Psych mental status grossly normal, thought process normal, cooperative and affect normal Debridement Note Debridement Note Wound debrided: left medial LE ulcer Laterality: Left Type of Debridement: Excisional debridement Anesthesia Used: 5% Lidocaine Gel and Cetacaine Depth: Down to and including healthy tissue and in the subcutaneous layer Percentage of wound debrided: 100 Instrument Used: - (Misonix ultrasonic debridement) Tissue Removed: Yellow slough, devitalized tissue Severity: Fat Layer Exposed Amount of bleeding with debridement: Mild Bleeding Controlled with: Compression and gauze Patient tolerated procedure: Patient tolerated procedure well Post-Debridement Measurements and Additional Note: Post-Debridement Measurements/Treatment WC - Nurse 1 - General Ulcer Assessment Start: 02/08/25 11:17 Freq: Status: Active Protocol: ONDINA Activity Type Activity Date Activity User E-sign Co-sign Detail Recorded Client Recorded Date Recorded By Document 02/08/25 11:17 ALEX [id number] 02/08/25 11:38 KW Document 02/15/25 11:47 KW [id number] 02/15/25 12:08 KW Document 02/22/25 10:28 KW [id number] 02/22/25 10:45 KW Document 03/01/25 11:29 DS [id number] 03/01/25 11:30 DS Document 03/08/25 11:32 KW [id number] 03/08/25 11:54 KW 02/08/25 02/15/25 02/22/25 11:17 11:47 10:28 WC - Today's Visit Information Type of service Follow-up Visit Follow-up Visit Follow-up Visit (Physician/ASSOCIATE PROFESSOR OF LIBRARY MEDIA (Physician/ASSOCIATE PROFESSOR OF LIBRARY MEDIA (Physician/ASSOCIATE PROFESSOR OF LIBRARY [employer] ) ) ) Arrival Mode Ambulatory, Ambulatory, Ambulatory, Walker Walker Walker Patient Identification Verified (Name & Yes Yes Yes ) Patient Requires Transmission-Based Precautions Safety Precautions Vital Signs Temperature (97.8 F-99.1 F) 96.1 F L Temperature Source Temporal Temporal Pulse Rate (60-100) 65 63 67 Pulse Location Monitor Monitor Monitor Respiratory Rate (12-18) 16 18 18 Respiratory rate source Observation Observation Observation Oxygen Delivery Method Room Air Room Air Room Air Blood Pressure (90/60-120/80) 143/68 H 144/75 H 117/73 Blood Pressure Mean (mm Hg) 93 98 87 Source Monitor Monitor Monitor Position Semi-Fowlers Semi-Fowlers Semi-Fowlers Blood Pressure Location Right Arm Right Arm Left Arm History Since Last Visit- (Skip if this is Patient's initial visit) Have you changed medications since your No No No last visit? Any new allergies or adverse reactions No No No Had a fall/change in ADL's that may No No No increase risk of falls Signs or symptoms of abuse and/or No No No neglect since last visit Have you been in the hospital since your No No No last visit? Has dressing in place as prescribed Yes Yes Yes Has compression in place as prescribed Yes Yes Yes Has offloadiing in place as prescribed N/A N/A N/A Experienced any changes in pain level or No No No management Left Footwear Regular Shoe Regular Shoe Regular Shoe Right Footwear Regular Shoe Regular Shoe Regular Shoe Pain Scale: 0-10 Numeric Is Patient Pain Free? Yes Yes Yes LLE -Description -Intensity -Duration (hours) -Pain Behavior -Alleviating Factors/Interventions 03/01/25 03/08/25 11:29 11:32 - Today's Visit Information Type of service Follow-up Visit Follow-up Visit (Physician/ASSOCIATE PROFESSOR OF [employer]IA (Physician/ASSOCIATE PROFESSOR OF [employer] ) ) Arrival Mode Ambulatory, Ambulatory, Walker Walker Patient Identification Verified (Name & Yes Yes ) Patient Requires Transmission-Based No Precautions Safety Precautions Fall Prevention Vital Signs Temperature (97.8 F-99.1 F) 97.0 F L 96.5 F L Temperature Source Temporal Temporal Pulse Rate (60-100) 61 68 Pulse Location Monitor Monitor Respiratory Rate (12-18) 18 16 Respiratory rate source Observation Observation Oxygen Delivery Method Room Air Room Air Blood Pressure (90/60-120/80) 146/77 H 138/89 H Blood Pressure Mean (mm Hg) 100 105 Source Monitor Monitor Position Sitting Semi-Fowlers Blood Pressure Location Right Arm Left Arm History Since Last Visit- (Skip if this is Patient's initial visit) Have you changed medications since your No No last visit? Any new allergies or adverse reactions No No Had a fall/change in ADL's that may No No increase risk of falls Signs or symptoms of abuse and/or No No neglect since last visit Have you been in the hospital since your No No last visit? Has dressing in place as prescribed Yes Yes Has compression in place as prescribed Yes Yes Has offloadiing in place as prescribed N/A N/A Experienced any changes in pain level or No No management Left Footwear Regular Shoe Regular Shoe Right Footwear Regular Shoe Regular Shoe Pain Scale: 0-10 Numeric Is Patient Pain Free? No Yes LLE -Description Sharp,Throbbing -Intensity 7 -Duration (hours) Chronic -Pain Behavior No Change in Behavior -Alleviating Factors/Interventions Will continue to monitor, Emotional Support - Nurse 1 - General Ulcer Measurement Start: 02/08/25 11:17 Freq: Status: Active Protocol: Activity Type Activity Date Activity User E-sign Co-sign Detail Recorded Client Recorded Date Recorded By Document 02/08/25 11:17 KW [id number] 02/08/25 11:38 KW Document 02/15/25 11:47 KW [id number] 02/15/25 12:08 KW Document 02/22/25 10:28 KW [id number] 02/22/25 10:45 KW Document 03/01/25 11:30 DS [id number] 03/01/25 11:53 DS Document 03/08/25 11:32 KW [id number] 03/08/25 11:54 KW 02/08/25 02/15/25 02/22/25 11:17 11:47 10:28 Wound Center Nurse 1 #24 Left Lateral Leg -Current Size (cm) - Length 2.7 0.1 2.3 -Current Size (cm) - Width 3.2 0.1 1.4 -Current Size (cm) - Depth 0.1 0.1 0.2 -Total Square Cm 8.64 0.01 3.22 -Date of Last Picture (Recall this 02/15/25 field) -Photo Taken -Exudate Amt Small Large Medium -Exudate Type Serosanguineous Serosanguineous Serosanguineous -Wound Margin Distinct, Distinct, Distinct, Outline Outline Outline Attached Attached Attached -Granulation Amt Medium (34-66%) Medium (34-66%) Large (67-100%) -Granulation Quality [place] Red Red -Necrosis Amt Small (1-33%) Medium (34-66%) Small (1-33%) -Necrotic Tissue Type Adherent Slough Adherent Slough Adherent Slough -Texture (Marie-wound Skin Appearance) Assessed Assessed Assessed -Moisture (Marie-wound Skin Appearance) Assessed Assessed Assessed -Color (Marie-wound Skin Appearance) Assessed, Assessed, Assessed, Hemosiderin Hemosiderin Hemosiderin Staining Staining Staining -Temperature (Marie-wound Skin No Abnormality No Abnormality No Abnormality Appearance) (Pt Warm) (Pt Warm) (Pt Warm) -Tenderness on Palpation (Marie-wound No No No Skin Appearance) -Ulcer Cleansing Soap and Water Soap and Water Soap and Water -Foul Odor after Cleansing No No No -Anesthetic Used 5% Lidocaine 5% Lidocaine 5% Lidocaine Gel Gel Gel #22 R Medial Lateral -Current Size (cm) - Length 28 0.1 10.5 -Current Size (cm) - Width 10.5 0.1 28.5 -Current Size (cm) - Depth 0.2 0.1 0.2 -Total Square Cm 294.0 0.01 299.25 -Date of Last Picture (Recall this 02/15/25 field) -Photo Taken -Tunneling -Undermining/Tunneling -Circular Undermining -Exudate Amt Large Large Large -Exudate Type Serosanguineous Serosanguineous Serosanguineous -Wound Margin Distinct, Distinct, Thickened Outline Outline Attached Attached -Granulation Amt Large (67-100%) Medium (34-66%) Large (67-100%) -Granulation Quality Red Red Red -Necrosis Amt Medium (34-66%) Medium (34-66%) Medium (34-66%) -Necrotic Tissue Type Adherent Slough Adherent Slough Adherent Slough -Texture (Marie-wound Skin Appearance) Assessed Assessed Assessed -Moisture (Marie-wound Skin Appearance) Assessed Assessed Assessed -Color (Marie-wound Skin Appearance) Assessed, Assessed, Assessed, Hemosiderin Hemosiderin Hemosiderin Staining Staining Staining -Temperature (Marie-wound Skin No Abnormality No Abnormality No Abnormality Appearance) (Pt Warm) (Pt Warm) (Pt Warm) -Tenderness on Palpation (Marie-wound No No No Skin Appearance) -Ulcer Cleansing Soap and Water Soap and Water Soap and Water -Foul Odor after Cleansing No No No -Anesthetic Used 5% Lidocaine 5% Lidocaine 5% Lidocaine Gel Gel Gel #18 Left medial LE cluster -Current Size (cm) - Length 15 0.1 9 -Current Size (cm) - Width 8.5 0.1 13.5 -Current Size (cm) - Depth 0.2 0.1 0.2 -Total Square Cm 127.5 0.01 121.5 -Date of Last Picture (Recall this 02/15/25 field) -Photo Taken -Tunneling -Undermining/Tunneling -Circular Undermining -Exudate Amt Large Large Medium -Exudate Type Serosanguineous Serosanguineous Serosanguineous -Wound Margin Distinct, Distinct, Distinct, Outline Outline Outline Attached Attached Attached -Granulation Amt Large (67-100%) Medium (34-66%) Large (67-100%) -Granulation Quality Red Red Red -Necrosis Amt Medium (34-66%) Medium (34-66%) Small (1-33%) -Necrotic Tissue Type Adherent Slough Adherent Slough Adherent Slough -Texture (Marie-wound Skin Appearance) Assessed Assessed Assessed -Moisture (Marie-wound Skin Appearance) Assessed Assessed Assessed -Color (Marie-wound Skin Appearance) Assessed, Assessed, Assessed, Hemosiderin Erythema, Erythema, Staining Hemosiderin Hemosiderin Staining Staining -Temperature (Marie-wound Skin No Abnormality No Abnormality No Abnormality Appearance) (Pt Warm) (Pt Warm) (Pt Warm) -Tenderness on Palpation (Marie-wound No No No Skin Appearance) -Ulcer Cleansing Soap and Water Soap and Water Soap and Water -Foul Odor after Cleansing No No No -Anesthetic Used 5% Lidocaine 5% Lidocaine 5% Lidocaine Gel Gel Gel Right Calf (cm) 47.2 44.5 45 Right Ankle (cm) 30.5 30 30 Left Calf (cm) 44 42 42.5 Left Ankle (cm) 29 30 30.5 03/01/25 03/08/25 11:30 11:32 Wound Center Nurse 1 #24 Left Lateral Leg -Current Size (cm) - Length 2.0 2.5 -Current Size (cm) - Width 1.4 0.5 -Current Size (cm) - Depth 0.2 0.1 -Total Square Cm 2.80 1.25 -Date of Last Picture (Recall this field) -Photo Taken No -Exudate Amt Small -Exudate Type Serosanguineous -Wound Margin Distinct, Thickened Outline Attached -Granulation Amt Medium (34-66%) Large (67-100%) -Granulation Quality [place] Red -Necrosis Amt Medium (34-66%) -Necrotic Tissue Type Adherent Slough -Texture (Marie-wound Skin Appearance) Assessed Assessed -Moisture (Marie-wound Skin Appearance) Assessed Assessed -Color (Marie-wound Skin Appearance) Assessed Assessed, Hemosiderin Staining -Temperature (Marie-wound Skin No Abnormality No Abnormality Appearance) (Pt Warm) (Pt Warm) -Tenderness on Palpation (Marie-wound No No Skin Appearance) -Ulcer Cleansing Soap and Water Soap and Water -Foul Odor after Cleansing No No -Anesthetic Used 5% Lidocaine 5% Lidocaine Gel Gel #22 R Medial Lateral -Current Size (cm) - Length 11.5 11 -Current Size (cm) - Width 29.0 28 -Current Size (cm) - Depth 0.2 0.2 -Total Square Cm 333.50 308 -Date of Last Picture (Recall this field) -Photo Taken No -Tunneling No -Undermining/Tunneling No -Circular Undermining No -Exudate Amt Medium -Exudate Type Serosanguineous -Wound Margin Distinct, Thickened Outline Attached -Granulation Amt Medium (34-66%) Large (67-100%) -Granulation Quality [place] Red -Necrosis Amt Medium (34-66%) Small (1-33%) -Necrotic Tissue Type Adherent Slough Adherent Slough -Texture (Marie-wound Skin Appearance) Assessed Assessed -Moisture (Marie-wound Skin Appearance) Assessed Assessed -Color (Marie-wound Skin Appearance) Assessed Assessed, Hemosiderin Staining -Temperature (Marie-wound Skin No Abnormality No Abnormality Appearance) (Pt Warm) (Pt Warm) -Tenderness on Palpation (Marie-wound No No Skin Appearance) -Ulcer Cleansing Soap and Water Soap and Water -Foul Odor after Cleansing No No -Anesthetic Used 5% Lidocaine 5% Lidocaine Gel Gel #18 Left medial LE cluster -Current Size (cm) - Length 14.5 8.5 -Current Size (cm) - Width 8.0 14.5 -Current Size (cm) - Depth 0.2 0.2 -Total Square Cm 116.00 123.25 -Date of Last Picture (Recall this field) -Photo Taken No -Tunneling No -Undermining/Tunneling No -Circular Undermining No -Exudate Amt Medium -Exudate Type Serosanguineous -Wound Margin Distinct, Distinct, Outline Outline Attached Attached -Granulation Amt Medium (34-66%) Medium (34-66%) -Granulation Quality [place] Red -Necrosis Amt Medium (34-66%) Medium (34-66%) -Necrotic Tissue Type Adherent Slough Adherent Slough -Texture (Marie-wound Skin Appearance) Assessed Assessed -Moisture (Marie-wound Skin Appearance) Assessed Assessed -Color (Marie-wound Skin Appearance) Assessed Assessed, Hemosiderin Staining -Temperature (Marie-wound Skin No Abnormality No Abnormality Appearance) (Pt Warm) (Pt Warm) -Tenderness on Palpation (Marie-wound No No Skin Appearance) -Ulcer Cleansing Soap and Water Soap and Water -Foul Odor after Cleansing No No -Anesthetic Used 5% Lidocaine 5% Lidocaine Gel Gel Right Calf (cm) 45.6 46.2 Right Ankle (cm) 30.5 31 Left Calf (cm) 41.2 44.5 Left Ankle (cm) 31.8 30.8 WC - Nurse 2 - General Ulcer CM Notes Start: 02/08/25 11:17 Freq: Status: Active Protocol: Activity Type Activity Date Activity User E-sign Co-sign Detail Recorded Client Recorded Date Recorded By Document 02/08/25 12:03 GM [id number] 02/08/25 12:16 Document 02/15/25 12:48 [id number] 02/15/25 13:01 Document 02/22/25 11:20 [id number] 02/22/25 11:32 Document 03/01/25 12:08 [id number] 03/01/25 12:25 Document 03/08/25 12:15 [id number] 03/08/25 12:31 02/08/25 02/15/25 02/22/25 12:03 12:48 11:20 Wound Center Nurse 2 #24 Left Lateral Leg -Time 12:03 12:48 11:21 -Correct Patient Yes Yes Yes -Correct Side, Site, Position Yes Yes Yes -Correct Procedure Yes Yes Yes -Procedure Performed Yes Yes Yes -Type of Procedure Debridement Debridement Debridement -Clinical Debridement Subcutaneous Subcutaneous Subcutaneous -Tissue Removed Subcutaneous Subcutaneous Subcutaneous -Post Debridement (cm) - Length 2.4 2.1 2.3 -Post Debridement (cm) - Width 1.6 1.3 1.5 -Post Debridement (cm) - Depth 0.1 0.1 0.1 -Total Square (Post) (cm) 3.84 2.73 3.45 -Area of Debridement (cm) - Length 2.4 2.1 2.3 -Area of Debridement (cm) - Width 1.6 1.3 1.5 -Total Square (Area) (cm) 3.84 2.73 3.45 -Tunneling No No No -Undermining/Tunneling No No No -Circular Undermining No No No -Wound/Ulcer Outcome Not Healed Not Healed Not Healed -Ulcer Cleansing Rinsed/ Rinsed/ Rinsed/ Irrigated with Irrigated with Irrigated with Saline Saline Saline -Foul Odor after Cleansing No No No -Bioengineered Tissue No No No -Bleeding Controlled with Pressure Pressure Pressure -Treatment Response Procedure Procedure Procedure Tolerated Well Tolerated Well Tolerated Well -Offloading No No No -Assistive Device(s) Walker -Debridement - Subq, 1st 20sq cm No No No #22 R Medial Lateral -Time 12:04 12:48 11:21 -Correct Patient Yes Yes Yes -Correct Side, Site, Position Yes Yes Yes -Correct Procedure Yes Yes Yes -Procedure Performed Yes Yes Yes -Type of Procedure Debridement Debridement Debridement -Clinical Debridement Subcutaneous Subcutaneous Subcutaneous -Tissue Removed Subcutaneous Subcutaneous Subcutaneous -Post Debridement (cm) - Length 11.8 11.5 11.5 -Post Debridement (cm) - Width 27.0 26.0 27.0 -Post Debridement (cm) - Depth 0.1 0.1 0.1 -Total Square (Post) (cm) 318.60 299.00 310.50 -Area of Debridement (cm) - Length 11.8 11.5 -Area of Debridement (cm) - Width 27.0 27.0 -Total Square (Area) (cm) 318.60 310.50 -Tunneling No No No -Undermining/Tunneling No No No -Circular Undermining No No No -Wound/Ulcer Outcome Not Healed Not Healed Not Healed -Ulcer Cleansing Rinsed/ Rinsed/ Rinsed/ Irrigated with Irrigated with Irrigated with Saline Saline Saline -Foul Odor after Cleansing No No No -Bioengineered Tissue No No No -Bleeding Controlled with Pressure Pressure Pressure -Treatment Response Procedure Procedure Procedure Tolerated Well Tolerated Well Tolerated Well -Offloading No No No -Assistive Device(s) Walker -Debridement - Subq, 1st 20sq cm No No No #18 Left medial LE cluster -Time 12:04 12:49 11:22 -Correct Patient Yes Yes Yes -Correct Side, Site, Position Yes Yes Yes -Correct Procedure Yes Yes Yes -Procedure Performed Yes Yes Yes -Type of Procedure Debridement Debridement Debridement -Clinical Debridement Subcutaneous Subcutaneous Subcutaneous -Tissue Removed Subcutaneous Subcutaneous Subcutaneous -Post Debridement (cm) - Length 8.5 8.5 8.6 -Post Debridement (cm) - Width 12.8 12.9 12.8 -Post Debridement (cm) - Depth 0.1 0.1 0.1 -Total Square (Post) (cm) 108.80 109.65 110.08 -Area of Debridement (cm) - Length 8.5 8.5 8.6 -Area of Debridement (cm) - Width 12.8 12.9 12.8 -Total Square (Area) (cm) 108.80 109.65 110.08 -Tunneling No No No -Undermining/Tunneling No No No -Circular Undermining No No No -Wound/Ulcer Outcome Not Healed Not Healed Not Healed -Ulcer Cleansing Rinsed/ Rinsed/ Rinsed/ Irrigated with Irrigated with Irrigated with Saline Saline Saline -Foul Odor after Cleansing No No No -Bioengineered Tissue No No No -Bleeding Controlled with Pressure Pressure Pressure -Treatment Response Procedure Procedure Procedure Tolerated Well Tolerated Well Tolerated Well -Offloading No No No -Debridement - Subq, 1st 20sq cm Yes Yes Yes -Debridement, SubQ, ea addt'l 20sq cm 21 20 21 or part thereof Pain Scale: 0-10 Numeric Is Patient Pain Free? Yes Yes Yes 03/01/25 03/08/25 12:08 12:15 Wound Center Nurse 2 #24 Left Lateral Leg -Time 12:08 12:18 -Correct Patient Yes Yes -Correct Side, Site, Position Yes Yes -Correct Procedure Yes Yes -Procedure Performed Yes Yes -Type of Procedure Debridement Debridement -Clinical Debridement Subcutaneous Subcutaneous -Tissue Removed Subcutaneous Subcutaneous -Post Debridement (cm) - Length 2.0 3.0 -Post Debridement (cm) - Width 1.2 2.0 -Post Debridement (cm) - Depth 0.1 0.1 -Total Square (Post) (cm) 2.40 6.00 -Area of Debridement (cm) - Length 2.0 3.0 -Area of Debridement (cm) - Width 1.2 2.0 -Total Square (Area) (cm) 2.40 6.00 -Tunneling No No -Undermining/Tunneling No No -Circular Undermining No No -Wound/Ulcer Outcome Not Healed Not Healed -Ulcer Cleansing Rinsed/ Rinsed/ Irrigated with Irrigated with Saline Saline -Foul Odor after Cleansing No No -Bioengineered Tissue No No -Bleeding Controlled with Pressure Pressure -Treatment Response Procedure Procedure Tolerated Well Tolerated Well -Offloading No -Assistive Device(s) Walker -Debridement - Subq, 1st 20sq cm No No #22 R Medial Lateral -Time 12:09 12:19 -Correct Patient Yes Yes -Correct Side, Site, Position Yes Yes -Correct Procedure Yes Yes -Procedure Performed Yes Yes -Type of Procedure Debridement Debridement -Clinical Debridement Subcutaneous Subcutaneous -Tissue Removed Subcutaneous Subcutaneous -Post Debridement (cm) - Length 11.0 10.6 -Post Debridement (cm) - Width 26.3 24.7 -Post Debridement (cm) - Depth 0.1 0.1 -Total Square (Post) (cm) 289.30 261.82 -Area of Debridement (cm) - Length 11.0 10.6 -Area of Debridement (cm) - Width 26.3 24.7 -Total Square (Area) (cm) 289.30 261.82 -Tunneling No No -Undermining/Tunneling No No -Circular Undermining No No -Wound/Ulcer Outcome Not Healed Not Healed -Ulcer Cleansing Rinsed/ Rinsed/ Irrigated with Irrigated with Saline Saline -Foul Odor after Cleansing No No -Bioengineered Tissue No No -Bleeding Controlled with Pressure Pressure -Treatment Response Procedure Procedure Tolerated Well Tolerated Well -Offloading No No -Assistive Device(s) -Debridement - Subq, 1st 20sq cm No No #18 Left medial LE cluster -Time 12:09 12:19 -Correct Patient Yes Yes -Correct Side, Site, Position Yes Yes -Correct Procedure Yes Yes -Procedure Performed Yes Yes -Type of Procedure Debridement Debridement -Clinical Debridement Subcutaneous Subcutaneous -Tissue Removed Subcutaneous Subcutaneous -Post Debridement (cm) - Length 8.5 8.5 -Post Debridement (cm) - Width 13.5 13.3 -Post Debridement (cm) - Depth 0.1 0.1 -Total Square (Post) (cm) 114.75 113.05 -Area of Debridement (cm) - Length 8.5 8.5 -Area of Debridement (cm) - Width 13.5 13.3 -Total Square (Area) (cm) 114.75 113.05 -Tunneling No No -Undermining/Tunneling No No -Circular Undermining No No -Wound/Ulcer Outcome Not Healed Not Healed -Ulcer Cleansing Rinsed/ Rinsed/ Irrigated with Irrigated with Saline Saline -Foul Odor after Cleansing No No -Bioengineered Tissue No No -Bleeding Controlled with Pressure Pressure -Treatment Response Procedure Procedure Tolerated Well Tolerated Well -Offloading No -Debridement - Subq, 1st 20sq cm Yes Yes -Debridement, SubQ, ea addt'l 20sq cm 20 19 or part thereof Pain Scale: 0-10 Numeric Is Patient Pain Free? Yes Yes WC - Nurse 3 - General Ulcer D/C NN Start: 02/08/25 11:17 Freq: Status: Active Protocol: Activity Type Activity Date Activity User E-sign Co-sign Detail Recorded Client Recorded Date Recorded By Document 02/08/25 12:41 RB [id number] 02/08/25 12:44 RB Document 03/01/25 12:32 DS [id number] 03/01/25 12:48 DS Edit Result 03/01/25 12:32 DS (1) [id number] 03/01/25 12:57 DS Document 03/08/25 13:08 KW [id number] 03/08/25 13:08 KW (1) #22 R Medial Lateral - Optilok 6.5x10 1 => 2 #18 Left medial LE cluster - Optilok 6.5x10 1 => 0 02/08/25 03/01/25 03/08/25 12:41 12:32 13:08 [facility] Nurse 3 #24 Left Lateral Leg -Ulcer Cleansing Rinsed/ Irrigated with Saline -Primary Dressing Applied Aquacel Extra Optilok 6.5x10 -Other Dressing ABD -Primary Dressing Covered/Secured with Dry Gauze & Dry Gauze Roll Gauze, Secured with Tape -Aquacel Extra 1 -Optilok 6.5x10 1 #22 R Medial Lateral -Ulcer Cleansing Rinsed/ Irrigated with Saline -Primary Dressing Applied Aquacel Extra, Optilok 6.5x10 Optilok 6.5x10 -Primary Dressing Covered/Secured with Dry Gauze & Dry Gauze & Roll Gauze, Roll Gauze, Secured with Secured with Tape Tape -Aquacel Extra 1 -Optilok 6.5x10 1 2 #18 Left medial LE cluster -Ulcer Cleansing Rinsed/ Irrigated with Saline -Primary Dressing Applied Aquacel Extra, Optilok 6.5x10 Optilok 6.5x10 -Primary Dressing Covered/Secured with Dry Gauze & Dry Gauze & Roll Gauze, Roll Gauze, Secured with Secured with Tape Tape -Aquacel Extra 1 -Optilok 6.5x10 1 0 BLE -Stockings Yes: pt own circaids -Other CIRCAIDES pt own circaides Treatment Response Procedure Tolerated Well Pain Scale: 0-10 Numeric Is Patient Pain Free? Yes Yes Yes WC - Visit Discharge Discharge Condition Stable Stable Stable Ambulatory Status Ambulatory, Ambulatory, Ambulatory, Walker Walker Walker Transportation Private Auto Private Auto Medication Reconcilliation completed & No No provided to patient/care provider Clinical Summary of Care Provided Yes Yes Additional Wound Wound debrided: right lateral leg Laterality: Right Type of Debridement: Excisional debridement Anesthesia Used: 5% Lidocaine Gel and Cetacaine Depth: Down to and including healthy tissue and in the subcutaneous layer Percentage of wound debrided: 100 Instrument Used: - (Misonix ultrasonic debridement) Tissue Removed: Yellow slough, devitalized tissue Severity: Fat Layer Exposed Amount of bleeding with debridement: Mild Bleeding Controlled with: Compression and gauze Patient tolerated procedure: Patient tolerated procedure well Additional Wound Wound debrided: right medial leg Laterality: Right Type of Debridement: Excisional debridement Anesthesia Used: 5% Lidocaine Gel and Cetacaine Depth: Down to and including healthy tissue and in the subcutaneous layer Percentage of wound debrided: 100 Instrument Used: - (Misonix ultrasonic debridement) Tissue Removed: Yellow slough, devitalized tissue Severity: Fat Layer Exposed Amount of bleeding with debridement: Mild Bleeding Controlled with: Compression and gauze Patient tolerated procedure: Patient tolerated procedure well Assessment/Plan Assessment/Plan (1) Lymphedema: CODE(S): I89.0 - Lymphedema, not elsewhere classified (2) Hypertension: CODE(S): I10 - Essential (primary) hypertension QUALIFIERS: Hypertension type: primary hypertension Qualified Code(s): I10 - Essential (primary) hypertension (3) Hyperlipidemia: CODE(S): E78.5 - Hyperlipidemia, unspecified QUALIFIERS: Hyperlipidemia type: mixed hyperlipidemia Qualified Code(s): E78.2 - Mixed hyperlipidemia (4) History of DVT (deep vein thrombosis): CODE(S): Z86.718 - Personal history of other venous thrombosis and embolism (5) Venous insufficiency (chronic) (peripheral): CODE(S): I87.2 - Venous insufficiency (chronic) (peripheral) (6) Venous ulcer of left lower extremity with varicose veins: CODE(S): I83.029 - Varicose veins of left lower extremity with ulcer of unspecified site (7) Edema: CODE(S): R60.9 - Edema, unspecified QUALIFIERS: Edema type: unspecified Qualified Code(s): R60.9 - Edema, unspecified (8) 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 At home wound-care instructions: Will use Circaid compression garments with ABD and kerlix to right LE and left LE changed every other day. Due to his chronic lymphedema and being unable to don traditional compression stockings and the presence of venous ulcers on his LE b/l, it is medically necessary for him to have Circaid compression garments. He is using Circaid compression to both legs. I suspect he is not very compliant with his lymphedema pumps and not getting adequate compression with tubigrips. Due to the delayed progress in wound healing of his venous ulcers, we discussed applying for advanced wound healing product for healing his ulcer. Due to the size of his ulcer, Theraskin application approval was requested from his insurance as it is medically necessary for salvaging his limb and healing his ulcer. He underwent 2 applications of Theraskin to this ulcer. Since application of Theraskin he had much improvement in epithelialization of his ulcer even though the overall size is not significantly changed there was progress. He is using Circaid compression wraps. Off-loading: The patient was instructed to avoid pressure and friction on the affected areas. Reposition every 2 hours at minimum. Avoid prolonged standing and/or dangling of legs. When seated, feet should be elevated at chest level. Frequent ambulation is encouraged. Encouraged lymphedema pump use. Diet: Patient encouraged to increase protein intake while taking caution to avoid high carbohydrate and/or sugar intake. Labs/cultures/imaging: Wound culture showed Pseudomonas, Escherichia hermannii, Raoultella planticola, Vancomycin Resist. E. faecalis, Alcaligenes faecalis ssp faeca, Staphylococcus cohnii urealyti and anaerobic bacteria on 06/15/24 and he completed on Levofloxacin and Augmentin. Wound culture taken today on right lateral ulcer which showed Raoultella planticola, Staph hemolyticus, staph e pidermidis and morganella morganii but no anaeroobic bacteria, Levofloxacin and doxycyline were prescribed based on culture results. Labs ordered 10/19/2024. Vitamin D was low A1C 5.4% Wound culture from 12/07/24 was positive for Providencia stuartii, Vancomycin resistant E. Faecalis, Corynebacterium striatum and completed Augmentin orally. Follow-up: Return in 1 week for wound care follow up and have dressing changed by home health Sara. Return sooner or report to the emergency room should symptoms worsen, or new symptoms arise. Note: [employer] speech recognition insurance administrator software was used to create portions of this document. Sound-alike and misspelled words, as well as other insurance administrator errors may be contained in the documentation.
== END 2025-03-09 23:59 | disposition home or self-care (01) ==
LOC: WC 11:30
PROVIDERS: PCP Family Medicine; Referring Provider Family Medicine; Visit Provider Family Medicine
DX: I83.893 Varicose veins of bilateral lower extremities with other complications (principal); L97.922 Non-pressure chronic ulcer of unspecified part of left lower leg with fat layer exposed; L97.912 Non-pressure chronic ulcer of unspecified part of right lower leg with fat layer exposed; I10 Essential (primary) hypertension; I89.0 Lymphedema, not elsewhere classified; I87.2 Venous insufficiency (chronic) (peripheral); R60.9 Edema, unspecified; E78.2 Mixed hyperlipidemia; M79.605 Pain in left leg; Z86.718 Personal history of other venous thrombosis and embolism
CPT/HCPCS: 11042; 11045

== ENCOUNTER 2025-04-05 11:15 | Outpatient (RCR) | payer MEDICARE, OTHER, SELFPAY ==
[2025-03-10 00:06] VITALS: BP 138/89; PULSE 68; RESP 16; TEMP 35.8
--- NOTE | 2025-03-15 14:34 | PCM.WC.PN ---
History of Present Illness Date of Service: 03/15/25 Chief Complaint: venous ulcers of left lower extremity History of Wound: Mauricio is a 69 yo gentleman who is here today for evaluation of ulcers to to his bilateral lower legs. He has been treated multiple times in the past at the wound healing center for similar ulcers. The left LE ulcer started after he developed increased swelling and blisters of left leg in October and the right leg started sometime at the end of October. He was seen at PCP's office a culture was taken and it was resistant to several antibiotics. He was treated initially with Levaquin but had myalgias and then was treated with doxycycline which he finished 2 days ago. He denies improvement and is having swelling to his left calf and thigh. He has been having swelling to both lower extremities for many years and it has worsened over the last few months. He has not been compliant with compression. He has had increased pain especially in the left leg. He has clear yellow drainage and redness without odor or warmth. He is anti-coagulated on coumadin. He has been washing with Dial soap and witch ifrah. He had been using Collagen at times and using Calcium Alginate and covering with ABD pads during October. He was treated with 3M compression and Aquacel Ag. He was referred to the wound center for ongoing treatment. His ulcers have moderate to heavy drainage. He was in the hospital from 11/30/22 until 12/09/22 for treatment of cellulitis and edema. He underwent treatment with Vancomycin and IV lasix and compression. Discharged on 12/09/22. He returned to his assisted living apartment on Tuesday12/21/22. Subjective Subjective Mauricio is a 69-year-old male with longstanding history of chronic venous ulceration to the left lower extremity and now a right lower extremity venous ulcer that is nearly circumferential. There continues to be mild improvement in both ulcers over the last week. He is more compliant with elevation but still is not compliant with compression pump frequency. Wound culture from 12/07/24 was positive for Providencia stuartii, Vancomycin resistant E. Faecalis, Corynebacterium striatum and completed Augmentin orally. His edema is better this week and he is tolerating Circaid compression. 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 He continues to use his lymphedema pumps but continues to have pain with use of these pumps. 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 Objective Data Objective Data Vital Signs: Vital Signs Temp Pulse Resp BP 96.5 F L 68 16 138/89 H 03/10/25 00:06 03/10/25 00:06 03/10/25 00:06 03/10/25 00:06 Physical Exam Const alert, oriented x3 and no apparent distress General Appearance: cooperative and comfortable HEENT normocephalic and head/scalp atraumatic Lymph Lymphatic: lymphedema moderate Resp normal respiratory effort Effort and Inspection: able to speak in complete sentences Cardio regular rate and regular rhythm Extremity Extremity Narrative: His ulcers are painful and the right lower leg remains more swollen than his left but there is good granulation tissue throughout and slough that is nearly completely removed post - debridement, edges of ulcers are beveled without rolled borders General Extremity: edema bilateral lower extremity Details: severe Skin General Skin Exam: venous stasis and dermatitis Wounds: wounds noted Wound Narrative: as in clinical panel, + devitalized tissue, there is increased depth, + granulation tissue bilateral ulcer with good granulation and moderate to heavy slough prior to debridement and minimal post debridement Psych mental status grossly normal, thought process normal, cooperative and affect normal Debridement Note Debridement Note Wound debrided: left medial LE ulcer Laterality: Left Type of Debridement: Excisional debridement Anesthesia Used: 5% Lidocaine Gel and Cetacaine Depth: Down to and including healthy tissue and in the subcutaneous layer Percentage of wound debrided: 100 Instrument Used: - (Misonix ultrasonic debridement) Tissue Removed: Yellow slough, devitalized tissue Severity: Fat Layer Exposed Amount of bleeding with debridement: Mild Bleeding Controlled with: Compression and gauze Patient tolerated procedure: Patient tolerated procedure well Post-Debridement Measurements and Additional Note: Post-Debridement Measurements/Treatment DEBBIE - Nurse 1 - General Ulcer Assessment Start: 03/15/25 11:57 Freq: Status: Active Protocol: ONDINA Activity Type Activity Date Activity User E-sign Co-sign Detail Recorded Client Recorded Date Recorded By Document 03/15/25 11:57 ARPIT [id number] 03/15/25 12:01 ARPIT 03/15/25 11:57 DEBBIE - Today's Visit Information Type of service Follow-up Visit (Physician/MAKE [employer] MAN ) Arrival Mode Ambulatory, Walker Transfer Assistance Manual Patient Identification Verified (Name & Yes ) Patient Requires Transmission-Based No Precautions Pain Scale: 0-10 Numeric Is Patient Pain Free? No ble -Description Aching -Intensity 6 -Duration (hours) Acute -Pain Behavior Withdrawal from Touch -Pain Aggravating Factors Exercise/ Activity, Debridement -Alleviating Factors/Interventions Medication -Effectiveness of Alleviating Factor/ Moderately Intervention effective WC - Nurse 1 - General Ulcer Measurement Start: 03/15/25 11:57 Freq: Status: Active Protocol: Activity Type Activity Date Activity User E-sign Co-sign Detail Recorded Client Recorded Date Recorded By Document 03/15/25 11:57 RB [id number] 03/15/25 12:01 RB 03/15/25 11:57 Wound Center Nurse 1 #24 Left Lateral Leg -Combined with other wound No -Current Size (cm) - Length 2 -Current Size (cm) - Width 0.7 -Current Size (cm) - Depth 0.1 -Total Square Cm 1.4 -Tunneling No -Undermining/Tunneling No -Circular Undermining No -Exudate Amt Large -Exudate Type Serosanguineous -Wound Margin Distinct, Outline Attached -Granulation Amt Large (67-100%) -Granulation Quality [place] -Slough/Fibrin Yes -Necrosis Amt Small (1-33%) -Necrotic Tissue Type Adherent Slough -Structure Exposed N/A -Texture (Marie-wound Skin Appearance) Assessed, Scarring -Moisture (Marie-wound Skin Appearance) Assessed -Color (Marie-wound Skin Appearance) Assessed -Temperature (Marie-wound Skin No Abnormality Appearance) (Pt Warm) -Tenderness on Palpation (Marie-wound No Skin Appearance) -Ulcer Cleansing Wound Cleanser -Foul Odor after Cleansing No -Anesthetic Used 5% Lidocaine Gel #22 R Medial Lateral -Combined with other wound No -Current Size (cm) - Length 11 -Current Size (cm) - Width 29 -Current Size (cm) - Depth 0.2 -Total Square Cm 319 -Tunneling No -Undermining/Tunneling No -Circular Undermining No -Exudate Amt Large -Exudate Type Serosanguineous -Wound Margin Distinct, Outline Attached -Granulation Amt Medium (34-66%) -Granulation Quality [place] -Slough/Fibrin Yes -Necrosis Amt Small (1-33%) -Necrotic Tissue Type Adherent Slough -Structure Exposed N/A -Texture (Marie-wound Skin Appearance) Assessed, Scarring -Moisture (Marie-wound Skin Appearance) Assessed -Color (Marie-wound Skin Appearance) Assessed -Temperature (Marie-wound Skin No Abnormality Appearance) (Pt Warm) -Tenderness on Palpation (Marie-wound No Skin Appearance) -Ulcer Cleansing Wound Cleanser -Foul Odor after Cleansing No -Anesthetic Used 5% Lidocaine Gel #18 Left medial LE cluster -Combined with other wound No -Current Size (cm) - Length 8 -Current Size (cm) - Width 15 -Current Size (cm) - Depth 0.1 -Total Square Cm 120 -Tunneling No -Undermining/Tunneling No -Circular Undermining No -Exudate Amt Large -Exudate Type Serosanguineous -Wound Margin Distinct, Outline Attached -Granulation Amt Medium (34-66%) -Granulation Quality [place] -Slough/Fibrin Yes -Necrosis Amt Medium (34-66%) -Necrotic Tissue Type Adherent Slough -Structure Exposed N/A -Texture (Marie-wound Skin Appearance) Assessed, Localized Edema ,Scarring -Moisture (Marie-wound Skin Appearance) Assessed -Color (Marie-wound Skin Appearance) Assessed -Temperature (Marie-wound Skin No Abnormality Appearance) (Pt Warm) -Tenderness on Palpation (Marie-wound No Skin Appearance) -Ulcer Cleansing Wound Cleanser -Foul Odor after Cleansing No -Anesthetic Used 5% Lidocaine Gel Lower Limb Edema Present Yes Right Calf (cm) 47 Right Ankle (cm) 31 Left Calf (cm) 44.5 Left Ankle (cm) 30.2 WC - Nurse 2 - General Ulcer CM Notes Start: 03/15/25 11:57 Freq: Status: Active Protocol: Activity Type Activity Date Activity User E-sign Co-sign Detail Recorded Client Recorded Date Recorded By Document 03/15/25 12:47 [id number] 03/15/25 12:55 GM 03/15/25 12:47 Wound Center Nurse 2 #24 Left Lateral Leg -Time 12:47 -Correct Patient Yes -Correct Side, Site, Position Yes -Correct Procedure Yes -Procedure Performed Yes -Type of Procedure Debridement -Clinical Debridement Subcutaneous -Tissue Removed Subcutaneous -Post Debridement (cm) - Length 1.8 -Post Debridement (cm) - Width 1.0 -Post Debridement (cm) - Depth 0.1 -Total Square (Post) (cm) 1.80 -Area of Debridement (cm) - Length 1.8 -Area of Debridement (cm) - Width 1.0 -Total Square (Area) (cm) 1.80 -Tunneling No -Undermining/Tunneling No -Circular Undermining No -Wound/Ulcer Outcome Not Healed -Ulcer Cleansing Rinsed/ Irrigated with Saline -Foul Odor after Cleansing No -Bioengineered Tissue No -Bleeding Controlled with Pressure -Treatment Response Procedure Tolerated Well -Offloading No -Debridement - Subq, 1st 20sq cm No #22 R Medial Lateral -Time 12:48 -Correct Patient Yes -Correct Side, Site, Position Yes -Correct Procedure Yes -Procedure Performed Yes -Type of Procedure Debridement -Clinical Debridement Subcutaneous -Tissue Removed Subcutaneous -Post Debridement (cm) - Length 11.0 -Post Debridement (cm) - Width 25.3 -Post Debridement (cm) - Depth 0.1 -Total Square (Post) (cm) 278.30 -Area of Debridement (cm) - Length 11.0 -Area of Debridement (cm) - Width 25.3 -Total Square (Area) (cm) 278.30 -Tunneling No -Undermining/Tunneling No -Circular Undermining No -Wound/Ulcer Outcome Not Healed -Ulcer Cleansing Rinsed/ Irrigated with Saline -Foul Odor after Cleansing No -Bioengineered Tissue No -Bleeding Controlled with Pressure -Treatment Response Procedure Tolerated Well -Offloading No -Debridement - Subq, 1st 20sq cm No #18 Left medial LE cluster -Time 12:48 -Correct Patient Yes -Correct Side, Site, Position Yes -Correct Procedure Yes -Procedure Performed Yes -Type of Procedure Debridement -Clinical Debridement Subcutaneous -Tissue Removed Subcutaneous -Post Debridement (cm) - Length 8.2 -Post Debridement (cm) - Width 14.8 -Post Debridement (cm) - Depth 0.1 -Total Square (Post) (cm) 121.36 -Area of Debridement (cm) - Length 8.2 -Area of Debridement (cm) - Width 14.8 -Total Square (Area) (cm) 121.36 -Tunneling No -Undermining/Tunneling No -Circular Undermining No -Wound/Ulcer Outcome Not Healed -Ulcer Cleansing Rinsed/ Irrigated with Saline -Foul Odor after Cleansing No -Bioengineered Tissue No -Bleeding Controlled with Pressure -Treatment Response Procedure Tolerated Well -Offloading No -Debridement - Subq, 1st 20sq cm Yes -Debridement, SubQ, ea addt'l 20sq cm 19 or part thereof Pain Scale: 0-10 Numeric Is Patient Pain Free? Yes - Nurse 3 - General Ulcer D/C NN Start: 03/15/25 11:57 Freq: Status: Active Protocol: Activity Type Activity Date Activity User E-sign Co-sign Detail Recorded Client Recorded Date Recorded By Document 03/15/25 13:08 RB [id number] 03/15/25 13:10 RB 03/15/25 13:08 Wound Care Center Nurse 3 #24 Left Lateral Leg -Other Dressing ABD -Primary Dressing Covered/Secured with Dry Gauze,Dry Gauze & Roll Gauze,Secured with Tape #22 R Medial Lateral -Other Dressing ABD -Primary Dressing Covered/Secured with Dry Gauze,Dry Gauze & Roll Gauze,Secured with Tape #18 Left medial LE cluster -Other Dressing ABD -Primary Dressing Covered/Secured with Dry Gauze,Dry Gauze & Roll Gauze,Secured with Tape BLE -Stockings Yes: circaid bilat Treatment Response Procedure Tolerated Well Pain Scale: 0-10 Numeric Is Patient Pain Free? Yes - Visit Discharge Discharge Condition Stable Ambulatory Status Ambulatory, Walker Transportation Private Auto Medication Reconcilliation completed & No provided to patient/care provider Clinical Summary of Care Provided Yes Additional Wound Wound debrided: right lateral leg Laterality: Right Type of Debridement: Excisional debridement Anesthesia Used: 5% Lidocaine Gel and Cetacaine Depth: Down to and including healthy tissue and in the subcutaneous layer Percentage of wound debrided: 100 Instrument Used: - (Misonix ultrasonic debridement) Tissue Removed: Yellow slough, devitalized tissue Severity: Fat Layer Exposed Amount of bleeding with debridement: Mild Bleeding Controlled with: Compression and gauze Patient tolerated procedure: Patient tolerated procedure well Additional Wound Wound debrided: right medial leg Laterality: Right Type of Debridement: Excisional debridement Anesthesia Used: 5% Lidocaine Gel and Cetacaine Depth: Down to and including healthy tissue and in the subcutaneous layer Percentage of wound debrided: 100 Instrument Used: - (Misonix ultrasonic debridement) Tissue Removed: Yellow slough, devitalized tissue Severity: Fat Layer Exposed Amount of bleeding with debridement: Mild Bleeding Controlled with: Compression and gauze Patient tolerated procedure: Patient tolerated procedure well Assessment/Plan Assessment/Plan (1) Lymphedema: CODE(S): I89.0 - Lymphedema, not elsewhere classified (2) Hypertension: CODE(S): I10 - Essential (primary) hypertension QUALIFIERS: Hypertension type: primary hypertension Qualified Code(s): I10 - Essential (primary) hypertension (3) Hyperlipidemia: CODE(S): E78.5 - Hyperlipidemia, unspecified QUALIFIERS: Hyperlipidemia type: mixed hyperlipidemia Qualified Code(s): E78.2 - Mixed hyperlipidemia (4) History of DVT (deep vein thrombosis): CODE(S): Z86.718 - Personal history of other venous thrombosis and embolism (5) Venous insufficiency (chronic) (peripheral): CODE(S): I87.2 - Venous insufficiency (chronic) (peripheral) (6) Venous ulcer of left lower extremity with varicose veins: CODE(S): I83.029 - Varicose veins of left lower extremity with ulcer of unspecified site (7) Edema: CODE(S): R60.9 - Edema, unspecified QUALIFIERS: Edema type: unspecified Qualified Code(s): R60.9 - Edema, unspecified (8) 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 At home wound-care instructions: Will use Circaid compression garments with ABD and kerlix to right LE and left LE changed every other day. Due to his chronic lymphedema and being unable to don traditional compression stockings and the presence of venous ulcers on his LE b/l, it is medically necessary for him to have Circaid compression garments. He is using Circaid compression to both legs. I suspect he is not very compliant with his lymphedema pumps and not getting adequate compression with tubigrips. Due to the delayed progress in wound healing of his venous ulcers, we discussed applying for advanced wound healing product for healing his ulcer. Due to the size of his ulcer, Theraskin application approval was requested from his insurance as it is medically necessary for salvaging his limb and healing his ulcer. He underwent 2 applications of Theraskin to this ulcer. Since application of Theraskin he had much improvement in epithelialization of his ulcer even though the overall size is not significantly changed there was progress. He is using Circaid compression wraps. Off-loading: The patient was instructed to avoid pressure and friction on the affected areas. Reposition every 2 hours at minimum. Avoid prolonged standing and/or dangling of legs. When seated, feet should be elevated at chest level. Frequent ambulation is encouraged. Encouraged lymphedema pump use. Diet: Patient encouraged to increase protein intake while taking caution to avoid high carbohydrate and/or sugar intake. Labs/cultures/imaging: Wound culture showed Pseudomonas, Escherichia hermannii, Raoultella planticola, Vancomycin Resist. E. faecalis, Alcaligenes faecalis ssp faeca, Staphylococcus cohnii urealyti and anaerobic bacteria on 06/15/24 and he completed on Levofloxacin and Augmentin. Wound culture taken today on right lateral ulcer which showed Raoultella planticola, Staph hemolyticus, staph epidermidis and morganella morganii but no anaeroobic bacteria, Levofloxacin and doxycyline were prescribed based on culture results. Labs ordered 10/19/2024. Vitamin D was low A1C 5.4% Wound culture from 12/07/24 was positive for Providencia stuartii, Vancomycin resistant E. Faecalis, Corynebacterium striatum and completed Augmentin orally. Follow-up: Return in 1 week for wound care follow up and have dressing changed by home health Tuesday. Return sooner or report to the emergency room should symptoms worsen, or new symptoms arise. Note: [employer] speech recognition complaint supervisor software was used to create portions of this document. Sound-alike and misspelled words, as well as other complaint supervisor errors may be contained in the documentation.
[2025-03-22 11:44] VITALS: BP 154/82; PULSE 59; RESP 18; TEMP 35.7
--- NOTE | 2025-03-22 13:39 | PN.PCM_ITS ---
History of Present Illness Date of Service: 03/22/25 Chief Complaint: venous ulcers of left lower extremity History of Wound: Mauricio is a 69 yo gentleman who is here today for evaluation of ulcers to to his bilateral lower legs. He has been treated multiple times in the past at the wound healing center for similar ulcers. The left LE ulcer started after he developed increased swelling and blisters of left leg in October and the right leg started sometime at the end of October. He was seen at PCP's office a culture was taken and it was resistant to several antibiotics. He was treated initially with Levaquin but had myalgias and then was treated with doxycycline which he finished 2 days ago. He denies improvement and is having swelling to his left calf and thigh. He has been having swelling to both lower extremities for many years and it has worsened over the last few months. He has not been compliant with compression. He has had increased pain especially in the left leg. He has clear yellow drainage and redness without odor or warmth. He is anti- coagulated on coumadin. He has been washing with Dial soap and witch ifrah. He had been using Collagen at times and using Calcium Alginate and covering with ABD pads during October. He was treated with 3M compression and Aquacel Ag. He was referred to the wound center for ongoing treatment. His ulcers have moderate to heavy drainage. He was in the hospital from 11/30/22 until 12/09/22 for treatment of cellulitis and edema. He underwent treatment with Vancomycin and IV lasix and compression. Discharged on 12/09/22. He returned to his assisted living apartment on Tuesday12/21/22. Subjective Subjective Mauricio is a 69-year-old male with longstanding history of chronic venous ulceration to the left lower extremity and now a right lower extremity venous ulcer that is nearly circumferential. There continues to be mild improvement in both ulcers over the last week. He is more compliant with elevation but still is not compliant with compression pump frequency. Wound culture from 12/07/24 was positive for Providencia stuartii, Vancomycin resistant E. Faecalis, Corynebacterium striatum and completed Augmentin orally. His edema is better this week and he is tolerating Circaid compression. 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 He continues to use his lymphedema pumps but continues to have pain with use of these pumps. Vascular surgery saw him and he has iliocaval obstruction with infrarenal IVC and multiple pelvic and abdominal venous collaterals which his lower extremity wounds are most likely felt to be a se quela from venous hypertension and he underwent successful vascular intervention on 01/07/25. Objective Data Objective Data Vital Signs: Vital Signs Temp Pulse Resp BP 96.2 F L 59 L 18 154/82 H 03/22/25 11:44 03/22/25 11:44 03/22/25 11:44 03/22/25 11:44 Physical Exam Const alert, oriented x3 and no apparent distress General Appearance: cooperative and comfortable HEENT normocephalic and head/scalp atraumatic Lymph Lymphatic: lymphedema moderate Resp normal respiratory effort Effort and Inspection: able to speak in complete sentences Cardio regular rate and regular rhythm Extremity Extremity Narrative: His ulcers are painful and the right lower leg remains more swollen than his left but there is good granulation tissue throughout and slough that is nearly completely removed post - debridement, edges of ulcers are beveled without rolled borders General Extremity: edema bilateral lower extremity Details: severe Skin General Skin Exam: venous stasis and dermatitis Wounds: wounds noted Wound Narrative: as in clinical panel, + devitalized tissue, there is increased depth, + granulation tissue bilateral ulcer with good granulation and moderate to heavy slough prior to debridement and minimal post debridement Psych mental status grossly normal, thought process normal, cooperative and affect normal Debridement Note Debridement Note Wound debrided: left medial LE ulcer Laterality: Left Type of Debridement: Excisional debridement Anesthesia Used: 5% Lidocaine Gel and Cetacaine Depth: Down to and including healthy tissue and in the subcutaneous layer Percentage of wound debrided: 100 Instrument Used: - (Misonix ultrasonic debridement) Tissue Removed: Yellow slough, devitalized tissue Severity: Fat Layer Exposed Amount of bleeding with debridement: Mild Bleeding Controlled with: Compression and gauze Patient tolerated procedure: Patient tolerated procedure well Post-Debridement Measurements and Additional Note: Post-Debridement Measurements/Treatment DEBBIE - Nurse 1 - General Ulcer Assessment Start: 03/15/25 11:57 Freq: Status: Active Protocol: ONDINA Activity Type Activity Date Activity User E-sign Co-sign Detail Recorded Client Recorded Date Recorded By Document 03/15/25 11:57 RB [id number] 03/15/25 12:01 RB Document 03/22/25 11:44 RB [id number] 03/22/25 11:51 RB 03/15/25 03/22/25 11:57 11:44 - Today's Visit Information Type of service Follow-up Visit Follow-up Visit (Physician/STREET VENDOR (Physician/STREET VENDOR ) ) Arrival Mode Ambulatory, Ambulatory Walker Transfer Assistance Manual None Patient Identification Verified (Name & Yes Yes ) Patient Requires Transmission-Based No No Precautions Vital Signs Temperature (97.8 F-99.1 F) 96.2 F L Temperature Source Temporal Pulse Rate (60-100) 59 L Pulse Location Monitor Respiratory Rate (12-18) 18 Respiratory rate source Observation Blood Pressure (90/60-120/80) 154/82 H Blood Pressure Mean (mm Hg) 106 Source Monitor Position Sitting Blood Pressure Location Left Arm History Since Last Visit- (Skip if this is Patient's initial visit) Have you changed medications since your No last visit? Any new allergies or adverse reactions No Had a fall/change in ADL's that may No increase risk of falls Signs or symptoms of abuse and/or No neglect since last visit Have you been in the hospital since your No last visit? Has dressing in place as prescribed Yes Has compression in place as prescribed Yes Has offloadiing in place as prescribed N/A Experienced any changes in pain level or No management Left Footwear Regular Shoe Right Footwear Regular Shoe Pain Scale: 0-10 Numeric Is Patient Pain Free? No Yes ble -Description Aching -Intensity 6 -Duration (hours) Acute -Pain Behavior Withdrawal from Touch -Pain Aggravating Factors Exercise/ Activity, Debridement -Alleviating Factors/Interventions Medication -Effectiveness of Alleviating Factor/ Moderately Intervention effective - Nurse 1 - General Ulcer Measurement Start: 03/15/25 11:57 Freq: Status: Active Protocol: Activity Type Activity Date Activity User E-sign Co-sign Detail Recorded Client Recorded Date Recorded By Document 03/15/25 11:57 [id number] 03/15/25 12:01 RB Document 03/22/25 11:44 RB [id number] 03/22/25 11:51 RB 03/15/25 03/22/25 11:57 11:44 Wound Center Nurse 1 #24 Left Lateral Leg -Combined with other wound No No -Current Size (cm) - Length 2 1.5 -Current Size (cm) - Width 0.7 0.7 -Current Size (cm) - Depth 0.1 0.1 -Total Square Cm 1.4 1.05 -Photo Taken Yes -Tunneling No No -Undermining/Tunneling No No -Circular Undermining No No -Exudate Amt Large Large -Exudate Type Serosanguineous Serosanguineous -Wound Margin Distinct, Distinct, Outline Outline Attached Attached -Granulation Amt Large (67-100%) Medium (34-66%) -Granulation Quality Freeland Freeland -Slough/Fibrin Yes Yes -Necrosis Amt Small (1-33%) Medium (34-66%) -Necrotic Tissue Type Adherent Slough Adherent Slough -Structure Exposed N/A N/A -Texture (Marie-wound Skin Appearance) Assessed, Assessed, Scarring Localized Edema -Moisture (Marie-wound Skin Appearance) Assessed Assessed -Color (Marie-wound Skin Appearance) Assessed Assessed -Temperature (Marie-wound Skin No Abnormality No Abnormality Appearance) (Pt Warm) (Pt Warm) -Tenderness on Palpation (Marie-wound No No Skin Appearance) -Ulcer Cleansing Wound Cleanser Wound Cleanser -Foul Odor after Cleansing No No -Anesthetic Used 5% Lidocaine 5% Lidocaine Gel Gel #22 R Medial/Lateral leg -Combined with other wound No No -Current Size (cm) - Length 11 30.5 -Current Size (cm) - Width 29 8.5 -Current Size (cm) - Depth 0.2 0.2 -Total Square Cm 319 259.25 -Photo Taken Yes -Tunneling No No -Undermining/Tunneling No No -Circular Undermining No No -Exudate Amt Large Medium -Exudate Type Serosanguineous Serosanguineous -Wound Margin Distinct, Distinct, Outline Outline Attached Attached -Granulation Amt Medium (34-66%) Medium (34-66%) -Granulation Quality Freeland Freeland -Slough/Fibrin Yes Yes -Necrosis Amt Small (1-33%) Medium (34-66%) -Necrotic Tissue Type Adherent Slough Adherent Slough -Structure Exposed N/A N/A -Texture (Marie-wound Skin Appearance) Assessed, Assessed, Scarring Localized Edema -Moisture (Marie-wound Skin Appearance) Assessed Assessed -Color (Marie-wound Skin Appearance) Assessed Assessed -Temperature (Marie-wound Skin No Abnormality No Abnormality Appearance) (Pt Warm) (Pt Warm) -Tenderness on Palpation (Marie-wound No No Skin Appearance) -Ulcer Cleansing Wound Cleanser Wound Cleanser -Foul Odor after Cleansing No No -Anesthetic Used 5% Lidocaine 5% Lidocaine Gel Gel #18 Left medial LE cluster -Combined with other wound No No -Current Size (cm) - Length 8 8.5 -Current Size (cm) - Width 15 4.5 -Current Size (cm) - Depth 0.1 0.1 -Total Square Cm 120 38.25 -Photo Taken Yes -Tunneling No No -Undermining/Tunneling No No -Circular Undermining No No -Exudate Amt Large Large -Exudate Type Serosanguineous Serosanguineous -Wound Margin Distinct, Distinct, Outline Outline Attached Attached -Granulation Amt Medium (34-66%) Medium (34-66%) -Granulation Quality Freeland Freeland -Slough/Fibrin Yes Yes -Necrosis Amt Medium (34-66%) Small (1-33%) -Necrotic Tissue Type Adherent Slough Adherent Slough -Structure Exposed N/A N/A -Texture (Marie-wound Skin Appearance) Assessed, Assessed, Localized Edema Localized Edema ,Scarring -Moisture (Marie-wound Skin Appearance) Assessed Assessed -Color (Marie-wound Skin Appearance) Assessed Assessed -Temperature (Marie-wound Skin No Abnormality No Abnormality Appearance) (Pt Warm) (Pt Warm) -Tenderness on Palpation (Maire-wound No No Skin Appearance) -Ulcer Cleansing Wound Cleanser Wound Cleanser -Foul Odor after Cleansing No No -Anesthetic Used 5% Lidocaine 5% Lidocaine Gel Gel Lower Limb Edema Present Yes Yes Right Calf (cm) 47 46.5 Right Ankle (cm) 31 30 Left Calf (cm) 44.5 45.5 Left Ankle (cm) 30.2 30.8 WC - Nurse 2 - General Ulcer CM Notes Start: 03/15/25 11:57 Freq: Status: Active Protocol: Activity Type Activity Date Activity User E-sign Co-sign Detail Recorded Client Recorded Date Recorded By Document 03/15/25 12:47 [id number] 03/15/25 12:55 Document 03/22/25 12:26 [id number] 03/22/25 12:41 03/15/25 03/22/25 12:47 12:26 Wound Center Nurse 2 #24 Left Lateral Leg -Time 12:47 12:26 -Correct Patient Yes Yes -Correct Side, Site, Position Yes Yes -Correct Procedure Yes Yes -Procedure Performed Yes Yes -Type of Procedure Debridement Debridement -Clinical Debridement Subcutaneous Subcutaneous -Tissue Removed Subcutaneous Subcutaneous -Post Debridement (cm) - Length 1.8 1.6 -Post Debridement (cm) - Width 1.0 0.5 -Post Debridement (cm) - Depth 0.1 0.1 -Total Square (Post) (cm) 1.80 0.80 -Area of Debridement (cm) - Length 1.8 1.6 -Area of Debridement (cm) - Width 1.0 0.5 -Total Square (Area) (cm) 1.80 0.80 -Tunneling No No -Undermining/Tunneling No No -Circular Undermining No No -Wound/Ulcer Outcome Not Healed Not Healed -Ulcer Cleansing Rinsed/ Not Cleansed Irrigated with Saline -Foul Odor after Cleansing No No -Bioengineered Tissue No No -Bleeding Controlled with Pressure NA -Treatment Response Procedure Procedure Tolerated Well Tolerated Well -Offloading No No -Debridement - Subq, 1st 20sq cm No No #22 R Medial/Lateral leg -Time 12:48 12:26 -Correct Patient Yes Yes -Correct Side, Site, Position Yes Yes -Correct Procedure Yes Yes -Procedure Performed Yes Yes -Type of Procedure Debridement Debridement -Clinical Debridement Subcutaneous Subcutaneous -Tissue Removed Subcutaneous Subcutaneous -Post Debridement (cm) - Length 11.0 10.0 -Post Debridement (cm) - Width 25.3 25.4 -Post Debridement (cm) - Depth 0.1 0.1 -Total Square (Post) (cm) 278.30 254.00 -Area of Debridement (cm) - Length 11.0 10.0 -Area of Debridement (cm) - Width 25.3 25.4 -Total Square (Area) (cm) 278.30 254.00 -Tunneling No No -Undermining/Tunneling No No -Circular Undermining No No -Wound/Ulcer Outcome Not Healed Not Healed -Ulcer Cleansing Rinsed/ Rinsed/ Irrigated with Irrigated with Saline Saline -Foul Odor after Cleansing No No -Bioengineered Tissue No No -Bleeding Controlled with Pressure Pressure -Treatment Response Procedure Procedure Tolerated Well Tolerated Well -Offloading No No -Debridement - Subq, 1st 20sq cm No No #18 Left medial LE cluster -Time 12:48 12:27 -Correct Patient Yes Yes -Correct Side, Site, Position Yes Yes -Correct Procedure Yes Yes -Procedure Performed Yes Yes -Type of Procedure Debridement Debridement -Clinical Debridement Subcutaneous Subcutaneous -Tissue Removed Subcutaneous Subcutaneous -Post Debridement (cm) - Length 8.2 8.3 -Post Debridement (cm) - Width 14.8 13.0 -Post Debridement (cm) - Depth 0.1 0.1 -Total Square (Post) (cm) 121.36 107.90 -Area of Debridement (cm) - Length 8.2 8.3 -Area of Debridement (cm) - Width 14.8 13.0 -Total Square (Area) (cm) 121.36 107.90 -Tunneling No No -Undermining/Tunneling No No -Circular Undermining No No -Wound/Ulcer Outcome Not Healed Not Healed -Ulcer Cleansing Rinsed/ Rinsed/ Irrigated with Irrigated with Saline Saline -Foul Odor after Cleansing No No -Bioengineered Tissue No No -Bleeding Controlled with Pressure Pressure -Treatment Response Procedure Procedure Tolerated Well Tolerated Well -Offloading No No -Debridement - Subq, 1st 20sq cm Yes Yes -Debridement, SubQ, ea addt'l 20sq cm 19 19 or part thereof Pain Scale: 0-10 Numeric Is Patient Pain Free? Yes Yes WC - Nurse 3 - General Ulcer D/C NN Start: 03/15/25 11:57 Freq: Status: Active Protocol: Activity Type Activity Date Activity User E-sign Co-sign Detail Recorded Client Recorded Date Recorded By Document 03/15/25 13:08 RB [id number] 03/15/25 13:10 RB Document 03/22/25 12:44 KW [id number] 03/22/25 12:45 KW Edit Result 03/22/25 12:44 KW (1) [id number] 03/22/25 12:58 RB (1) #24 Left Lateral Leg - Primary Dressing Applied => Optilok 5x5 1/2 - Optilok 5x5 1/2 => 2 03/15/25 03/22/25 13:08 12:44 Wound Care Center Nurse 3 #24 Left Lateral Leg -Primary Dressing Applied Optilok 5x5 1/2 -Other Dressing ABD -Primary Dressing Covered/Secured with Dry Gauze,Dry Dry Gauze & Gauze & Roll Roll Gauze, Gauze,Secured Secured with with Tape Tape -Optilok 5x5 1/2 2 #22 R Medial/Lateral leg -Other Dressing ABD -Primary Dressing Covered/Secured with Dry Gauze,Dry Dry Gauze & Gauze & Roll Roll Gauze, Gauze,Secured Secured with with Tape Tape #18 Left medial LE cluster -Other Dressing ABD -Primary Dressing Covered/Secured with Dry Gauze,Dry Dry Gauze & Gauze & Roll Roll Gauze, Gauze,Secured Secured with with Tape Tape BLE -Stockings Yes: circaid bilat -Other pt circaids Treatment Response Procedure Tolerated Well Pain Scale: 0-10 Numeric Is Patient Pain Free? Yes Yes WC - Visit Discharge Discharge Condition Stable Stable Ambulatory Status Ambulatory, Ambulatory, Walker Walker Transportation Private Auto Private Auto Medication Reconcilliation completed & No No provided to patient/care provider Clinical Summary of Care Provided Yes Yes Additional Wound Wound debrided: right lateral leg Laterality: Right Type of Debridement: Excisional debridement Anesthesia Used: 5% Lidocaine Gel and Cetacaine Depth: Down to and including healthy tissue and in the subcutaneous layer Percentage of wound debrided: 100 Instrument Used: - (Misonix ultrasonic debridement) Tissue Removed: Yellow slough, devitalized tissue Severity: Fat Layer Exposed Amount of bleeding with debridement: Mild Bleeding Controlled with: Compression and gauze Patient tolerated procedure: Patient tolerated procedure well Additional Wound Wound debrided: right medial leg Laterality: Right Type of Debridement: Excisional debridement Anesthesia Used: 5% Lidocaine Gel and Cetacaine Depth: Down to and including healthy tissue and in the subcutaneous layer Percentage of wound debrided: 100 Instrument Used: - (Misonix ultrasonic debridement) Tissue Removed: Yellow slough, devitalized tissue Severity: Fat Layer Exposed Amount of bleeding with debridement: Mild Bleeding Controlled with: Compression and gauze Patient tolerated procedure: Patient tolerated procedure well Assessment/Plan Assessment/Plan (1) Lymphedema: CODE(S): I89.0 - Lymphedema, not elsewhere classified (2) Hypertension: CODE(S): I10 - Essential (primary) hypertension QUALIFIERS: Hypertension type: primary hypertension Qualified Code(s): I10 - Essential (primary) hypertension (3) Hyperlipidemia: CODE(S): E78.5 - Hyperlipidemia, unspecified QUALIFIERS: Hyperlipidemia type: mixed hyperlipidemia Qualified Code(s): E78.2 - Mixed hyperlipidemia (4) History of DVT (deep vein thrombosis): CODE(S): Z86.718 - Personal history of other venous thrombosis and e mbolism (5) Venous insufficiency (chronic) (peripheral): CODE(S): I87.2 - Venous insufficiency (chronic) (peripheral) (6) Venous ulcer of left lower extremity with varicose veins: CODE(S): I83.029 - Varicose veins of left lower extremity with ulcer of unspecified site (7) Edema: CODE(S): R60.9 - Edema, unspecified QUALIFIERS: Edema type: unspecified Qualified Code(s): R60.9 - Edema, unspecified (8) 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 At home wound-care instructions: Will use Circaid compression garments with ABD and kerlix to right LE and left LE changed every other day. Due to his chronic lymphedema and being unable to don traditional compression stockings and the presence of venous ulcers on his LE b/l, it is medically necessary for him to have Circaid compression garments. He is using Circaid compression to both legs. I suspect he is not very compliant with his lymphedema pumps and not getting adequate compression with tubigrips. Due to the delayed progress in wound healing of his venous ulcers, we discussed applying for advanced wound healing product for healing his ulcer. Due to the size of his ulcer, Theraskin application approval was requested from his insurance as it is medically necessary for salvaging his limb and healing his ulcer. He underwent 2 applications of Theraskin to this ulcer. Since application of Theraskin he had much improvement in epithelialization of his ulcer even though the overall size is not significantly changed there was progress. He is using Circaid compression wraps. Off-loading: The patient was instructed to avoid pressure and friction on the affected areas. Reposition every 2 hours at minimum. Avoid prolonged standing and/or dangling of legs. When seated, feet should be elevated at chest level. Frequent ambulation is encouraged. Encouraged lymphedema pump use. Diet: Patient encouraged to increase protein intake while taking caution to avoid high carbohydrate and/or sugar intake. Labs/cultures/imaging: Wound culture showed Pseudomonas, Escherichia hermannii, Raoultella planticola, Vancomycin Resist. E. faecalis, Alcaligenes faecalis ssp faeca, Staphylococcus cohnii urealyti and anaerobic bacteria on 06/15/24 and he completed on Levofloxacin and Augmentin. Wound culture taken today on right lateral ulcer which showed Raoultella planticola, Staph hemolyticus, staph epidermidis and morganella morganii but no anaeroobic bacteria, Levofloxacin and doxycyline were prescribed based on culture results. Labs ordered 10/19/2024. Vitamin D was low A1C 5.4% Wound culture from 12/07/24 was positive for Providencia stuartii, Vancomycin resistant E. Faecalis, Corynebacterium striatum and completed Augmentin orally. Follow-up: Return in 1 week for wound care follow up and have dressing changed by home health Mondays. Return sooner or report to the emergency room should symptoms worsen, or new symptoms arise. Note: Rescale speech recognition beach expert software was used to create portions of this document. Sound-alike and misspelled words, as well as other beach expert errors may be contained in the documentation.
--- NOTE | 2025-03-25 08:45 | WC ---
PHOTO 03/22/25 RIGHT LATERAL LEG
--- NOTE | 2025-03-25 08:46 | WC ---
PHOTO 03/22/25 [facility] GARRIDO
--- NOTE | 2025-03-25 08:47 | WC ---
PHOTO 03/22/25 LEFT LATERAL LEG
[2025-03-29 11:21] VITALS: BP 145/79; PULSE 61; RESP 18; TEMP 36.3
--- NOTE | 2025-03-29 13:14 | WC ---
PHOTO 03/29/25 RIGHT JOANNA LAT [facility]
--- NOTE | 2025-03-29 13:14 | WC ---
PHOTO 03/29/25 RIGHT JOANNA LAT [facility]
--- NOTE | 2025-03-29 13:15 | WC ---
PHOTO 03/29/25 LEFT LAT LE
--- NOTE | 2025-03-29 13:15 | WC ---
PHOTO 03/29/25 LEFT [facility]
--- NOTE | 2025-03-29 13:53 | PCM.WC.PN ---
History of Present Illness Date of Service: 03/29/25 Chief Complaint: venous ulcers of left lower extremity History of Wound: Mauricio is a 69 yo gentleman who is here today for evaluation of ulcers to to his bilateral lower legs. He has been treated multiple times in the past at the wound healing center for similar ulcers. The left LE ulcer started after he developed increased swelling and blisters of left leg in October and the right leg started sometime at the end of October. He was seen at PCP's office a culture was taken and it was resistant to several antibiotics. He was treated initially with Levaquin but had myalgias and then was treated with doxycycline which he finished 2 days ago. He denies improvement and is having swelling to his left calf and thigh. He has been having swelling to both lower extremities for many years and it has worsened over the last few months. He has not been compliant with compression. He has had increased pain especially in the left leg. He has clear yellow drainage and redness without odor or warmth. He is anti-coagulated on coumadin. He has been washing with Dial soap and witch ifrah. He had been using Collagen at times and using Calcium Alginate and covering with ABD pads during October. He was treated with 3M compression and Aquacel Ag. He was referred to the wound center for ongoing treatment. His ulcers have moderate to heavy drainage. He was in the hospital from 11/30/22 until 12/09/22 for treatment of cellulitis and edema. He underwent treatment with Vancomycin and IV lasix and compression. Discharged on 12/09/22. He returned to his assisted living apartment on Tuesday12/21/22. Wound culture from 12/07/24 was positive for Providencia stuartii, Vancomycin resistant E. Faecalis, Corynebacterium striatum and completed Augmentin orally. His edema is better this week and he is tolerating Circaid compression. 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 He continues to use his lymphedema pumps but continues to have pain with use of these pumps. 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 Progress of Wound: Mauricio is here today in follow up for chronic venous ulceration to the left lower extremity right lower extremity venous ulcer that is nearly circumferential. There continues to be mild improvement in both ulcers over the last week. He is more compliant with elevation but still is not compliant with compression pump frequency. he denies increased drainage, pain, or odor. Objective Data Objective Data Vital Signs: Vital Signs Temp Pulse Resp BP O2 Del Method 97.3 F L 61 18 145/79 H Room Air 03/29/25 11:21 03/29/25 11:21 03/29/25 11:21 03/29/25 11:21 03/29/25 11:21 Oxygen Delivery Method Room Air Physical Exam Const alert, oriented x3 and no apparent distress General Appearance: cooperative and comfortable HEENT normocephalic and head/scalp atraumatic Lymph Lymphatic: lymphedema moderate Resp normal respiratory effort Effort and Inspection: able to speak in complete sentences Cardio regular rate and regular rhythm Extremity Extremity Narrative: His ulcers are painful and the right lower leg remains more swollen than his left but there is good granulation tissue throughout and slough that is nearly completely removed post - debridement, edges of ulcers are beveled without rolled borders General Extremity: edema bilateral lower extremity Details: severe Skin General Skin Exam: venous stasis and dermatitis Wounds: wounds noted Wound Narrative: as in clinical panel, + devitalized tissue, there is increased depth, + granulation tissue bilateral ulcer with good granulation and moderate to heavy slough prior to debridement and minimal post debridement Psych mental status grossly normal, thought process normal, cooperative and affect normal Debridement Note Debridement Note Wound debrided: left medial LE ulcer Laterality: Left Type of Debridement: Excisional debridement Anesthesia Used: 5% Lidocaine Gel and Cetacaine Depth: Down to and including healthy tissue and in the subcutaneous layer Percentage of wound debrided: 100 Instrument Used: - (Misonix ultrasonic debridement) Tissue Removed: Yellow slough, devitalized tissue Severity: Fat Layer Exposed Amount of bleeding with debridement: Mild Bleeding Controlled with: Compression and gauze Patient tolerated procedure: Patient tolerated procedure well Post-Debridement Measurements and Additional Note: Post-Debridement Measurements/Treatment DEBBIE - Nurse 1 - General Ulcer Assessment Start: 03/15/25 11:57 Freq: Status: Active Protocol: ONDINA Activity Type Activity Date Activity User E-sign Co-sign Detail Recorded Client Recorded Date Recorded By Document 03/15/25 11:57 RB [id number] 03/15/25 12:01 RB Document 03/22/25 11:44 RB [id number] 03/22/25 11:51 RB Document 03/29/25 11:21 KW [id number] 03/29/25 11:34 KW 03/15/25 03/22/25 03/29/25 11:57 11:44 11:21 WC - Today's Visit Information Type of service Follow-up Visit Follow-up Visit Follow-up Visit (Physician/BALANCING MACHINE SET UP WORKER (Physician/BALANCING MACHINE SET UP WORKER (Physician/BALANCING MACHINE SET UP WORKER ) ) ) Arrival Mode Ambulatory, Ambulatory Ambulatory, Walker Walker Transfer Assistance Manual None Patient Identification Verified (Name & Yes Yes Yes ) Patient Requires Transmission-Based No No Precautions Vital Signs Temperature (97.8 F-99.1 F) 96.2 F L 97.3 F L Temperature Source Temporal Temporal Pulse Rate (60-100) 59 L 61 Pulse Location Monitor Monitor Respiratory Rate (12-18) 18 18 Respiratory rate source Observation Observation Oxygen Delivery Method Room Air Blood Pressure (90/60-120/80) 154/82 H 145/79 H Blood Pressure Mean (mm Hg) 106 101 Source Monitor Monitor Position Sitting Semi-Fowlers Blood Pressure Location Left Arm Right Arm History Since Last Visit- (Skip if this is Patient's initial visit) Have you changed medications since your No No last visit? Any new allergies or adverse reactions No No Had a fall/change in ADL's that may No No increase risk of falls Signs or symptoms of abuse and/or No No neglect since last visit Have you been in the hospital since your No No last visit? Has dressing in place as prescribed Yes Yes Has compression in place as prescribed Yes Yes Has offloadiing in place as prescribed N/A N/A Experienced any changes in pain level or No No management Left Footwear Regular Shoe Regular Shoe Right Footwear Regular Shoe Regular Shoe Pain Scale: 0-10 Numeric Is Patient Pain Free? No Yes Yes ble -Description Aching -Intensity 6 -Duration (hours) Acute -Pain Behavior Withdrawal from Touch -Pain Aggravating Factors Exercise/ Activity, Debridement -Alleviating Factors/Interventions Medication -Effectiveness of Alleviating Factor/ Moderately Intervention effective WC - Nurse 1 - General Ulcer Measurement Start: 03/15/25 11:57 Freq: Status: Active Protocol: Activity Type Activity Date Activity User E-sign Co-sign Detail Recorded Client Recorded Date Recorded By Document 03/15/25 11:57 RB [id number] 03/15/25 12:01 RB Document 03/22/25 11:44 RB [id number] 03/22/25 11:51 RB Document 03/29/25 11:21 KW [id number] 03/29/25 11:34 KW 03/15/25 03/22/25 03/29/25 11:57 11:44 11:21 Wound Center Nurse 1 #24 Left Lateral Leg -Combined with other wound No No -Current Size (cm) - Length 2 1.5 -Current Size (cm) - Width 0.7 0.7 -Current Size (cm) - Depth 0.1 0.1 -Total Square Cm 1.4 1.05 -Photo Taken Yes -Tunneling No No -Undermining/Tunneling No No -Circular Undermining No No -Exudate Amt Large Large Medium -Exudate Type Serosanguineous Serosanguineous Serosanguineous -Wound Margin Distinct, Distinct, Distinct, Outline Outline Outline Attached Attached Attached -Granulation Amt Large (67-100%) Medium (34-66%) Large (67-100%) -Granulation Quality [place] -Slough/Fibrin Yes Yes -Necrosis Amt Small (1-33%) Medium (34-66%) -Necrotic Tissue Type Adherent Slough Adherent Slough -Structure Exposed N/A N/A -Texture (Marie-wound Skin Appearance) Assessed, Assessed, Assessed Scarring Localized Edema -Moisture (Marie-wound Skin Appearance) Assessed Assessed Assessed -Color (Marie-wound Skin Appearance) Assessed Assessed Assessed, Hemosiderin Staining -Temperature (Marie-wound Skin No Abnormality No Abnormality No Abnormality Appearance) (Pt Warm) (Pt Warm) (Pt Warm) -Tenderness on Palpation (Marie-wound No No No Skin Appearance) -Ulcer Cleansing Wound Cleanser Wound Cleanser Soap and Water -Foul Odor after Cleansing No No No -Anesthetic Used 5% Lidocaine 5% Lidocaine 5% Lidocaine Gel Gel Gel #22 R Medial/Lateral leg -Combined with other wound No No -Current Size (cm) - Length 11 30.5 -Current Size (cm) - Width 29 8.5 -Current Size (cm) - Depth 0.2 0.2 -Total Square Cm 319 259.25 -Photo Taken Yes -Tunneling No No -Undermining/Tunneling No No -Circular Undermining No No -Exudate Amt Large Medium Medium -Exudate Type Serosanguineous Serosanguineous Serosanguineous -Wound Margin Distinct, Distinct, Distinct, Outline Outline Outline Attached Attached Attached -Granulation Amt Medium (34-66%) Medium (34-66%) Large (67-100%) -Granulation Quality [place] -Slough/Fibrin Yes Yes -Necrosis Amt Small (1-33%) Medium (34-66%) -Necrotic Tissue Type Adherent Slough Adherent Slough -Structure Exposed N/A N/A -Texture (Marie-wound Skin Appearance) Assessed, Assessed, Assessed Scarring Localized Edema -Moisture (Marie-wound Skin Appearance) Assessed Assessed Assessed -Color (Marie-wound Skin Appearance) Assessed Assessed Assessed, Hemosiderin Staining -Temperature (Marie-wound Skin No Abnormality No Abnormality No Abnormality Appearance) (Pt Warm) (Pt Warm) (Pt Warm) -Tenderness on Palpation (Marie-wound No No No Skin Appearance) -Ulcer Cleansing Wound Cleanser Wound Cleanser Soap and Water -Foul Odor after Cleansing No No No -Anesthetic Used 5% Lidocaine 5% Lidocaine 5% Lidocaine Gel Gel Gel #18 Left medial LE cluster -Combined with other wound No No -Current Size (cm) - Length 8 8.5 -Current Size (cm) - Width 15 4.5 -Current Size (cm) - Depth 0.1 0.1 -Total Square Cm 120 38.25 -Photo Taken Yes -Tunneling No No -Undermining/Tunneling No No -Circular Undermining No No -Exudate Amt Large Large Medium -Exudate Type Serosanguineous Serosanguineous Serosanguineous -Wound Margin Distinct, Distinct, Distinct, Outline Outline Outline Attached Attached Attached -Granulation Amt Medium (34-66%) Medium (34-66%) Large (67-100%) -Granulation Quality [place] -Slough/Fibrin Yes Yes -Necrosis Amt Medium (34-66%) Small (1-33%) -Necrotic Tissue Type Adherent Slough Adherent Slough -Structure Exposed N/A N/A -Texture (Marie-wound Skin Appearance) Assessed, Assessed, Assessed Localized Edema Localized Edema ,Scarring -Moisture (Marie-wound Skin Appearance) Assessed Assessed Assessed -Color (Marie-wound Skin Appearance) Assessed Assessed Assessed, Hemosiderin Staining -Temperature (Marie-wound Skin No Abnormality No Abnormality No Abnormality Appearance) (Pt Warm) (Pt Warm) (Pt Warm) -Tenderness on Palpation (Marie-wound No No No Skin Appearance) -Ulcer Cleansing Wound Cleanser Wound Cleanser Soap and Water -Foul Odor after Cleansing No No No -Anesthetic Used 5% Lidocaine 5% Lidocaine 5% Lidocaine Gel Gel Gel Lower Limb Edema Present Yes Yes Right Calf (cm) 47 46.5 Right Ankle (cm) 31 30 Left Calf (cm) 44.5 45.5 Left Ankle (cm) 30.2 30.8 WC - Nurse 2 - General Ulcer CM Notes Start: 03/15/25 11:57 Freq: Status: Active Protocol: Activity Type Activity Date Activity User E-sign Co-sign Detail Recorded Client Recorded Date Recorded By Document 03/15/25 12:47 [id number] 03/15/25 12:55 Document 03/22/25 12:26 [id number] 03/22/25 12:41 Document 03/29/25 12:01 [id number] 03/29/25 12:18 03/15/25 03/22/25 03/29/25 12:47 12:26 12:01 Wound Center Nurse 2 #24 Left Lateral Leg -Time 12:47 12:26 12:02 -Correct Patient Yes Yes Yes -Correct Side, Site, Position Yes Yes Yes -Correct Procedure Yes Yes Yes -Procedure Performed Yes Yes Yes -Type of Procedure Debridement Debridement Debridement -Clinical Debridement Subcutaneous Subcutaneous Subcutaneous -Tissue Removed Subcutaneous Subcutaneous Subcutaneous -Post Debridement (cm) - Length 1.8 1.6 1.5 -Post Debridement (cm) - Width 1.0 0.5 0.5 -Post Debridement (cm) - Depth 0.1 0.1 0.1 -Total Square (Post) (cm) 1.80 0.80 0.75 -Area of Debridement (cm) - Length 1.8 1.6 1.5 -Area of Debridement (cm) - Width 1.0 0.5 0.5 -Total Square (Area) (cm) 1.80 0.80 0.75 -Tunneling No No No -Undermining/Tunneling No No No -Circular Undermining No No No -Wound/Ulcer Outcome Not Healed Not Healed Not Healed -Ulcer Cleansing Rinsed/ Not Cleansed Rinsed/ Irrigated with Irrigated with Saline Saline -Foul Odor after Cleansing No No No -Bioengineered Tissue No No No -Bleeding Controlled with Pressure NA Pressure -Treatment Response Procedure Procedure Procedure Tolerated Well Tolerated Well Tolerated Well -Offloading No No No -Debridement - Subq, 1st 20sq cm No No No #22 R Medial/Lateral leg -Time 12:48 12:26 12:02 -Correct Patient Yes Yes Yes -Correct Side, Site, Position Yes Yes Yes -Correct Procedure Yes Yes Yes -Procedure Performed Yes Yes Yes -Type of Procedure Debridement Debridement Debridement -Clinical Debridement Subcutaneous Subcutaneous Subcutaneous -Tissue Removed Subcutaneous Subcutaneous Subcutaneous -Post Debridement (cm) - Length 11.0 10.0 10.2 -Post Debridement (cm) - Width 25.3 25.4 26.0 -Post Debridement (cm) - Depth 0.1 0.1 0.1 -Total Square (Post) (cm) 278.30 254.00 265.20 -Area of Debridement (cm) - Length 11.0 10.0 10.2 -Area of Debridement (cm) - Width 25.3 25.4 26.0 -Total Square (Area) (cm) 278.30 254.00 265.20 -Tunneling No No No -Undermining/Tunneling No No No -Circular Undermining No No No -Wound/Ulcer Outcome Not Healed Not Healed Not Healed -Ulcer Cleansing Rinsed/ Rinsed/ Rinsed/ Irrigated with Irrigated with Irrigated with Saline Saline Saline -Foul Odor after Cleansing No No No -Bioengineered Tissue No No No -Bleeding Controlled with Pressure Pressure Pressure -Treatment Response Procedure Procedure Procedure Tolerated Well Tolerated Well Tolerated Well -Offloading No No No -Debridement - Subq, 1st 20sq cm No No No #18 Left medial LE cluster -Time 12:48 12:27 12:03 -Correct Patient Yes Yes Yes -Correct Side, Site, Position Yes Yes Yes -Correct Procedure Yes Yes Yes -Procedure Performed Yes Yes Yes -Type of Procedure Debridement Debridement Debridement -Clinical Debridement Subcutaneous Subcutaneous Subcutaneous -Tissue Removed Subcutaneous Subcutaneous Subcutaneous -Post Debridement (cm) - Length 8.2 8.3 8.3 -Post Debridement (cm) - Width 14.8 13.0 13.3 -Post Debridement (cm) - Depth 0.1 0.1 0.1 -Total Square (Post) (cm) 121.36 107.90 110.39 -Area of Debridement (cm) - Length 8.2 8.3 8.3 -Area of Debridement (cm) - Width 14.8 13.0 13.3 -Total Square (Area) (cm) 121.36 107.90 110.39 -Tunneling No No No -Undermining/Tunneling No No No -Circular Undermining No No No -Wound/Ulcer Outcome Not Healed Not Healed Not Healed -Ulcer Cleansing Rinsed/ Rinsed/ Rinsed/ Irrigated with Irrigated with Irrigated with Saline Saline Saline -Foul Odor after Cleansing No No No -Bioengineered Tissue No No No -Bleeding Controlled with Pressure Pressure Pressure -Treatment Response Procedure Procedure Procedure Tolerated Well Tolerated Well Tolerated Well -Offloading No No No -Debridement - Subq, 1st 20sq cm Yes Yes Yes -Debridement, SubQ, ea addt'l 20sq cm 19 19 18 or part thereof Pain Scale: 0-10 Numeric Is Patient Pain Free? Yes Yes Yes WC - Nurse 3 - General Ulcer D/C NN Start: 03/15/25 11:57 Freq: Status: Active Protocol: Activity Type Activity Date Activity User E-sign Co-sign Detail Recorded Client Recorded Date Recorded By Document 03/15/25 13:08 RB [id number] 03/15/25 13:10 RB Document 03/22/25 12:44 KW [id number] 03/22/25 12:45 KW Edit Result 03/22/25 12:44 KW (1) [id number] 03/22/25 12:58 RB Document 03/29/25 12:53 RB [id number] 03/29/25 12:55 RB (1) #24 Left Lateral Leg - Primary Dressing Applied => Optilok 5x5 1/2 - Optilok 5x5 1/2 => 2 03/15/25 03/22/25 03/29/25 13:08 12:44 12:53 Wound Care Center Nurse 3 #24 Left Lateral Leg -Ulcer Cleansing Rinsed/ Irrigated with Saline -Primary Dressing Applied Optilok 5x5 1/2 Optilok 5x5 1/2 ,Optilok 6.5x10 -Other Dressing ABD -Primary Dressing Covered/Secured with Dry Gauze,Dry Dry Gauze & Dry Gauze & Gauze & Roll Roll Gauze, Roll Gauze, Gauze,Secured Secured with Secured with with Tape Tape Tape -Optilok 5x5 1/2 2 1 -Optilok 6.5x10 2 #22 R Medial/Lateral leg -Other Dressing ABD -Primary Dressing Covered/Secured with Dry Gauze,Dry Dry Gauze & Dry Gauze & Gauze & Roll Roll Gauze, Roll Gauze, Gauze,Secured Secured with Secured with with Tape Tape Tape #18 Left medial LE cluster -Other Dressing ABD -Primary Dressing Covered/Secured with Dry Gauze,Dry Dry Gauze & Dry Gauze & Gauze & Roll Roll Gauze, Roll Gauze, Gauze,Secured Secured with Secured with with Tape Tape Tape BLE -Stockings Yes: circaid Yes: PT OWN bilat CIRCAIDS -Other pt circaids Treatment Response Procedure Procedure Tolerated Well Tolerated Well Pain Scale: 0-10 Numeric Is Patient Pain Free? Yes Yes Yes WC - Visit Discharge Discharge Condition Stable Stable Stable Ambulatory Status Ambulatory, Ambulatory, Ambulatory, Walker Walker Walker Transportation Private Auto Private Auto [facility] transport Medication Reconcilliation completed & No No No provided to patient/care provider Clinical Summary of Care Provided Yes Yes Yes Additional Wound Wound debrided: left lateral leg Laterality: Left Type of Debridement: Excisional debridement Anesthesia Used: 5% Lidocaine Gel and Cetacaine Depth: Down to and including healthy tissue and in the subcutaneous layer Percentage of wound debrided: 100 Instrument Used: - (Misonix ultrasonic debridement) Tissue Removed: Yellow slough, devitalized tissue Severity: Fat Layer Exposed Amount of bleeding with debridement: Mild Bleeding Controlled with: Compression and gauze Patient tolerated procedure: Patient tolerated procedure well Additional Wound Wound debrided: right medial leg Laterality: Right Type of Debridement: Excisional debridement Anesthesia Used: 5% Lidocaine Gel and Cetacaine Depth: Down to and including healthy tissue and in the subcutaneous layer Percentage of wound debrided: 100 Instrument Used: - (Misonix ultrasonic debridement) Tissue Removed: Yellow slough, devitalized tissue Severity: Fat Layer Exposed Amount of bleeding with debridement: Mild Bleeding Controlled with: Compression and gauze Patient tolerated procedure: Patient tolerated procedure well Assessment/Plan Assessment/Plan (1) Lymphedema: CODE(S): I89.0 - Lymphedema, not elsewhere classified (2) Hypertension: CODE(S): I10 - Essential (primary) hypertension QUALIFIERS: Hypertension type: primary hypertension Qualified Code(s): I10 - Essential (primary) hypertension (3) Hyperlipidemia: CODE(S): E78.5 - Hyperlipidemia, unspecified QUALIFIERS: Hyperlipidemia type: mixed hyperlipidemia Qualified Code(s): E78.2 - Mixed hyperlipidemia (4) History of DVT (deep vein thrombosis): CODE(S): Z86.718 - Personal history of other venous thrombosis and embolism (5) Venous insufficiency (chronic) (peripheral): CODE(S): I87.2 - Venous insufficiency (chronic) (peripheral) (6) Venous ulcer of left lower extremity with varicose veins: CODE(S): I83.029 - Varicose veins of left lower extremity with ulcer of unspecified site (7) Edema: CODE(S): R60.9 - Edema, unspecified QUALIFIERS: Edema type: unspecified Qualified Code(s): R60.9 - Edema, unspecified (8) 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 At home wound-care instructions: Will use Circaid compression garments with super absorber and kerlix to right LE and left LE changed every other day. Due to his chronic lymphedema and being unable to don traditional compression stockings and the presence of venous ulcers on his LE b/l, it is medically necessary for him to have Circaid compression garments. He is using Circaid compression to both legs. I suspect he is not very compliant with his lymphedema pumps and not getting adequate compression with tubigrips. Due to the delayed progress in wound healing of his venous ulcers, we discussed applying for advanced wound healing product for healing his ulcer. Due to the size of his ulcer, Theraskin application approval was requested from his insurance as it is medically necessary for salvaging his limb and healing his ulcer. He underwent 2 applications of Theraskin to this ulcer. Since application of Theraskin he had much improvement in epithelialization of his ulcer even though the overall size is not significantly changed there was progress. He is using Circaid compression wraps. Off-loading: The patient was instructed to avoid pressure and friction on the affected areas. Reposition every 2 hours at minimum. Avoid prolonged standing and/or dangling of legs. When seated, feet should be elevated at chest level. Frequent ambulation is encouraged. Encouraged lymphedema pump use. Diet: Patient encouraged to increase protein intake while taking caution to avoid high carbohydrate and/or sugar intake. Labs/cultures/imaging: Wound culture showed Pseudomonas, Escherichia hermannii, Raoultella planticola, Vancomycin Resist. E. faecalis, Alcaligenes faecalis ssp faeca, Staphylococcus cohnii urealyti and anaerobic bacteria on 06/15/24 and he completed on Levofloxacin and Augmentin. Wound culture taken today on right lateral ulcer which showed Raoultella planticola, Staph hemolyticus, staph epidermidis and morganella morganii but no anaeroobic bacteria, Levofloxacin and doxycyline were prescribed based on culture results. Labs ordered 10/19/2024. Vitamin D was low A1C 5.4% Wound culture from 12/07/24 was positive for Providencia stuartii, Vancomycin resistant E. Faecalis, Corynebacterium striatum and completed Augmentin orally. Follow-up: Return in 1 week for wound care follow up and have dressing changed by home health Mondays. Return sooner or report to the emergency room should symptoms worsen, or new symptoms arise. Note: [employer] speech recognition crew supervisor software was used to create portions of this document. Sound-alike and misspelled words, as well as other crew supervisor errors may be contained in the documentation.
[2025-04-05 11:53] VITALS: BP 171/100; PULSE 61; RESP 18; TEMP 36.1
--- NOTE | 2025-04-05 14:29 | PN.PCM_ITS ---
History of Present Illness Date of Service: 04/05/25 Chief Complaint: venous ulcers of left lower extremity History of Wound: Mauricio is a 69 yo gentleman who is here today for evaluation of ulcers to to his bilateral lower legs. He has been treated multiple times in the past at the wound healing center for similar ulcers. The left LE ulcer started after he developed increased swelling and blisters of left leg in October and the right leg started sometime at the end of October. He was seen at PCP's office a culture was taken and it was resistant to several antibiotics. He was treated initially with Levaquin but had myalgias and then was treated with doxycycline which he finished 2 days ago. He denies improvement and is having swelling to his left calf and thigh. He has been having swelling to both lower extremities for many years and it has worsened over the last few months. He has not been compliant with compression. He has had increased pain especially in the left leg. He has clear yellow drainage and redness without odor or warmth. He is anti- coagulated on coumadin. He has been washing with Dial soap and witch ifrah. He had been using Collagen at times and using Calcium Alginate and covering with ABD pads during October. He was treated with 3M compression and Aquacel Ag. He was referred to the wound center for ongoing treatment. His ulcers have moderate to heavy drainage. He was in the hospital from 11/30/22 until 12/09/22 for treatment of cellulitis and edema. He underwent treatment with Vancomycin and IV lasix and compression. Discharged on 12/09/22. He returned to his assisted living apartment on Tuesday12/21/22. Wound culture from 12/07/24 was positive for Providencia stuartii, Vancomycin resistant E. Faecalis, Corynebacterium striatum and completed Augmentin orally. His edema is better this week and he is tolerating Circaid compression. 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 He continues to use his lymphedema pumps but continues to have pain with use of these pumps. 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 Progress of Wound: Mauricio is here today in follow up for chronic venous ulceration to the left lower extremity right lower extremity venous ulcer that is nearly circumferential. There continues to be mild improvement in both ulcers over the last week. He is more compliant with elevation but still is not compliant with compression pump frequency. he denies increased drainage, pain, or odor. Subjective Subjective Mauricio is a 69-year-old male with longstanding history of chronic venous ulceration to the left lower extremity and now a right lower extremity venous ulcer that is nearly circumferential. There continues to be mild improvement in both ulcers over the last week. He is more compliant with elevation but still is not compliant with compression pump frequency. Wound culture from 12/07/24 was positive for Providencia stuartii, Vancomycin resistant E. Faecalis, Corynebacterium striatum and completed Augmentin orally. His edema is better this week and he is tolerating Circaid compression. 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 He continues to use his lymphedema pumps but continues to have pain with use of these pumps. 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 Objective Data Objective Data Vital Signs: Vital Signs Temp Pulse Resp BP O2 Del Method 96.9 F L 61 18 171/100 H Room Air 04/05/25 11:53 04/05/25 11:53 04/05/25 11:53 04/05/25 11:53 04/05/25 11:53 Oxygen Delivery Method Room Air Physical Exam Const alert, oriented x3 and no apparent distress General Appearance: cooperative and comfortable HEENT normocephalic and head/scalp atraumatic Lymph Lymphatic: lymphedema moderate Resp normal respiratory effort Effort and Inspection: able to speak in complete sentences Cardio regular rate and regular rhythm Extremity Extremity Narrative: His ulcers are painful and the right lower leg remains more swollen than his left but there is good granulation tissue throughout and slough that is nearly completely removed post - debridement, edges of ulcers are beveled without rolled borders General Extremity: edema bilateral lower extremity Details: severe Skin General Skin Exam: venous stasis and dermatitis Wounds: wounds noted Wound Narrative: as in clinical panel, + devitalized tissue, there is increased depth, + granulation tissue bilateral ulcer with good granulation and moderate to heavy slough prior to debridement and minimal post debridement Psych mental status grossly normal, thought process normal, cooperative and affect normal Debridement Note Debridement Note Wound debrided: left medial LE ulcer Laterality: Left Type of Debridement: Excisional debridement Anesthesia Used: 5% Lidocaine Gel and Cetacaine Depth: Down to and including healthy tissue and in the subcutaneous layer Percentage of wound debrided: 100 Instrument Used: - (Misonix ultrasonic debridement) Tissue Removed: Yellow slough, devitalized tissue Severity: Fat Layer Exposed Amount of bleeding with debridement: Mild Bleeding Controlled with: Compression and gauze Patient tolerated procedure: Patient tolerated procedure well Post-Debridement Measurements and Additional Note: Post-Debridement Measurements/Treatment - Nurse 1 - General Ulcer Assessment Start: 03/15/25 11:57 Freq: Status: Active Protocol: ONDINA Activity Type Activity Date Activity User E-sign Co-sign Detail Recorded Client Recorded Date Recorded By Document 03/15/25 11:57 RB [id number] 03/15/25 12:01 RB Document 03/22/25 11:44 RB [id number] 03/22/25 11:51 RB Document 03/29/25 11:21 KW [id number] 03/29/25 11:34 KW Document 04/05/25 11:53 KW [id number] 04/05/25 12:14 KW 03/15/25 03/22/25 03/29/25 11:57 11:44 11:21 - Today's Visit Information Type of service Follow-up Visit Follow-up Visit Follow-up Visit (Physician/PAPERBACK MACHINE OPERATOR (Physician/PAPERBACK MACHINE OPERATOR (Physician/PAPERBACK MACHINE OPERATOR ) ) ) Arrival Mode Ambulatory, Ambulatory Ambulatory, Walker Walker Transfer Assistance Manual None Patient Identification Verified (Name & Yes Yes Yes ) Patient Requires Transmission-Based No No Precautions Vital Signs Temperature (97.8 F-99.1 F) 96.2 F L 97.3 F L Temperature Source Temporal Temporal Pulse Rate (60-100) 59 L 61 Pulse Location Monitor Monitor Respiratory Rate (12-18) 18 18 Respiratory rate source Observation Observation Oxygen Delivery Method Room Air Blood Pressure (90/60-120/80) 154/82 H 145/79 H Blood Pressure Mean (mm Hg) 106 101 Source Monitor Monitor Position Sitting Semi-Fowlers Blood Pressure Location Left Arm Right Arm History Since Last Visit- (Skip if this is Patient's initial visit) Have you changed medications since your No No last visit? Any new allergies or adverse reactions No No Had a fall/change in ADL's that may No No increase risk of falls Signs or symptoms of abuse and/or No No neglect since last visit Have you been in the hospital since your No No last visit? Has dressing in place as prescribed Yes Yes Has compression in place as prescribed Yes Yes Has offloadiing in place as prescribed N/A N/A Experienced any changes in pain level or No No management Left Footwear Regular Shoe Regular Shoe Right Footwear Regular Shoe Regular Shoe Pain Scale: 0-10 Numeric Is Patient Pain Free? No Yes Yes ble -Description Aching -Intensity 6 -Duration (hours) Acute -Pain Behavior Withdrawal from Touch -Pain Aggravating Factors Exercise/ Activity, Debridement -Alleviating Factors/Interventions Medication -Effectiveness of Alleviating Factor/ Moderately Intervention effective 04/05/25 11:53 WC - Today's Visit Information Type of service Follow-up Visit (Physician/PAPERBACK MACHINE OPERATOR ) Arrival Mode Ambulatory, Wheelchair Transfer Assistance Patient Identification Verified (Name & Yes ) Patient Requires Transmission-Based Precautions Vital Signs Temperature (97.8 F-99.1 F) 96.9 F L Temperature Source Temporal Pulse Rate (60-100) 61 Pulse Location Monitor Respiratory Rate (12-18) 18 Respiratory rate source Observation Oxygen Delivery Method Room Air Blood Pressure (90/60-120/80) 171/100 H Blood Pressure Mean (mm Hg) 123 Source Monitor Position Semi-Fowlers Blood Pressure Location Right Arm History Since Last Visit- (Skip if this is Patient's initial visit) Have you changed medications since your No last visit? Any new allergies or adverse reactions No Had a fall/change in ADL's that may No increase risk of falls Signs or symptoms of abuse and/or No neglect since last visit Have you been in the hospital since your No last visit? Has dressing in place as prescribed Yes Has compression in place as prescribed Yes Has offloadiing in place as prescribed N/A Experienced any changes in pain level or No management Left Footwear Regular Shoe Right Footwear Regular Shoe Pain Scale: 0-10 Numeric Is Patient Pain Free? Yes ble -Description -Intensity -Duration (hours) -Pain Behavior -Pain Aggravating Factors -Alleviating Factors/Interventions -Effectiveness of Alleviating Factor/ Intervention WC - Nurse 1 - General Ulcer Measurement Start: 03/15/25 11:57 Freq: Status: Active Protocol: Activity Type Activity Date Activity User E-sign Co-sign Detail Recorded Client Recorded Date Recorded By Document 03/15/25 11:57 RB [id number] 03/15/25 12:01 RB Document 03/22/25 11:44 RB [id number] 03/22/25 11:51 RB Document 03/29/25 11:21 KW [id number] 03/29/25 11:34 KW Document 04/05/25 11:53 KW [id number] 04/05/25 12:14 KW 03/15/25 03/22/25 03/29/25 11:57 11:44 11:21 Wound Center Nurse 1 #24 Left Lateral Leg -Combined with other wound No No -Current Size (cm) - Length 2 1.5 -Current Size (cm) - Width 0.7 0.7 -Current Size (cm) - Depth 0.1 0.1 -Total Square Cm 1.4 1.05 -Photo Taken Yes -Tunneling No No -Undermining/Tunneling No No -Circular Undermining No No -Exudate Amt Large Large Medium -Exudate Type Serosanguineous Serosanguineous Serosanguineous -Wound Margin Distinct, Distinct, Distinct, Outline Outline Outline Attached Attached Attached -Granulation Amt Large (67-100%) Medium (34-66%) Large (67-100%) -Granulation Quality [place] Red -Slough/Fibrin Yes Yes -Necrosis Amt Small (1-33%) Medium (34-66%) -Necrotic Tissue Type Adherent Slough Adherent Slough -Structure Exposed N/A N/A -Texture (Marie-wound Skin Appearance) Assessed, Assessed, Assessed Scarring Localized Edema -Moisture (Marie-wound Skin Appearance) Assessed Assessed Assessed -Color (Marie-wound Skin Appearance) Assessed Assessed Assessed, Hemosiderin Staining -Temperature (Marie-wound Skin No Abnormality No Abnormality No Abnormality Appearance) (Pt Warm) (Pt Warm) (Pt Warm) -Tenderness on Palpation (Marie-wound No No No Skin Appearance) -Ulcer Cleansing Wound Cleanser Wound Cleanser Soap and Water -Foul Odor after Cleansing No No No -Anesthetic Used 5% Lidocaine 5% Lidocaine 5% Lidocaine Gel Gel Gel #22 R Medial/Lateral leg -Combined with other wound No No -Current Size (cm) - Length 11 30.5 -Current Size (cm) - Width 29 8.5 -Current Size (cm) - Depth 0.2 0.2 -Total Square Cm 319 259.25 -Photo Taken Yes -Tunneling No No -Undermining/Tunneling No No -Circular Undermining No No -Exudate Amt Large Medium Medium -Exudate Type Serosanguineous Serosanguineous Serosanguineous -Wound Margin Distinct, Distinct, Distinct, Outline Outline Outline Attached Attached Attached -Granulation Amt Medium (34-66%) Medium (34-66%) Large (67-100%) -Granulation Quality [place] Red -Slough/Fibrin Yes Yes -Necrosis Amt Small (1-33%) Medium (34-66%) -Necrotic Tissue Type Adherent Slough Adherent Slough -Structure Exposed N/A N/A -Texture (Marie-wound Skin Appearance) Assessed, Assessed, Assessed Scarring Localized Edema -Moisture (Marie-wound Skin Appearance) Assessed Assessed Assessed -Color (Marie-wound Skin Appearance) Assessed Assessed Assessed, Hemosiderin Staining -Temperature (Marie-wound Skin No Abnormality No Abnormality No Abnormality Appearance) (Pt Warm) (Pt Warm) (Pt Warm) -Tenderness on Palpation (Marie-wound No No No Skin Appearance) -Ulcer Cleansing Wound Cleanser Wound Cleanser Soap and Water -Foul Odor after Cleansing No No No -Anesthetic Used 5% Lidocaine 5% Lidocaine 5% Lidocaine Gel Gel Gel #18 Left medial LE cluster -Combined with other wound No No -Current Size (cm) - Length 8 8.5 -Current Size (cm) - Width 15 4.5 -Current Size (cm) - Depth 0.1 0.1 -Total Square Cm 120 38.25 -Photo Taken Yes -Tunneling No No -Undermining/Tunneling No No -Circular Undermining No No -Exudate Amt Large Large Medium -Exudate Type Serosanguineous Serosanguineous Serosanguineous -Wound Margin Distinct, Distinct, Distinct, Outline Outline Outline Attached Attached Attached -Granulation Amt Medium (34-66%) Medium (34-66%) Large (67-100%) -Granulation Quality [place] Red -Slough/Fibrin Yes Yes -Necrosis Amt Medium (34-66%) Small (1-33%) -Necrotic Tissue Type Adherent Slough Adherent Slough -Structure Exposed N/A N/A -Texture (Marie-wound Skin Appearance) Assessed, Assessed, Assessed Localized Edema Localized Edema ,Scarring -Moisture (Marie-wound Skin Appearance) Assessed Assessed Assessed -Color (Marie-wound Skin Appearance) Assessed Assessed Assessed, Hemosiderin Staining -Temperature (Marie-wound Skin No Abnormality No Abnormality No Abnormality Appearance) (Pt Warm) (Pt Warm) (Pt Warm) -Tenderness on Palpation (Marie-wound No No No Skin Appearance) -Ulcer Cleansing Wound Cleanser Wound Cleanser Soap and Water -Foul Odor after Cleansing No No No -Anesthetic Used 5% Lidocaine 5% Lidocaine 5% Lidocaine Gel Gel Gel Lower Limb Edema Present Yes Yes Right Calf (cm) 47 46.5 Right Ankle (cm) 31 30 Left Calf (cm) 44.5 45.5 Left Ankle (cm) 30.2 30.8 04/05/25 11:53 Wound Center Nurse 1 #24 Left Lateral Leg -Combined with other wound -Current Size (cm) - Length -Current Size (cm) - Width -Current Size (cm) - Depth -Total Square Cm -Photo Taken -Tunneling -Undermining/Tunneling -Circular Undermining -Exudate Amt Large -Exudate Type Serosanguineous -Wound Margin Thickened -Granulation Amt Medium (34-66%) -Granulation Quality [place] -Slough/Fibrin -Necrosis Amt Medium (34-66%) -Necrotic Tissue Type Adherent Slough -Structure Exposed -Texture (Marie-wound Skin Appearance) Assessed -Moisture (Marie-wound Skin Appearance) Assessed -Color (Marie-wound Skin Appearance) Assessed, Ecchymosis -Temperature (Marie-wound Skin No Abnormality Appearance) (Pt Warm) -Tenderness on Palpation (Marie-wound No Skin Appearance) -Ulcer Cleansing Soap and Water -Foul Odor after Cleansing No -Anesthetic Used 5% Lidocaine Gel #22 R Medial/Lateral leg -Combined with other wound -Current Size (cm) - Length -Current Size (cm) - Width -Current Size (cm) - Depth -Total Square Cm -Photo Taken -Tunneling -Undermining/Tunneling -Circular Undermining -Exudate Amt Large -Exudate Type Serosanguineous -Wound Margin Thickened -Granulation Amt Medium (34-66%) -Granulation Quality [place] -Slough/Fibrin -Necrosis Amt Medium (34-66%) -Necrotic Tissue Type Adherent Slough -Structure Exposed -Texture (Marie-wound Skin Appearance) Assessed -Moisture (Marie-wound Skin Appearance) Assessed -Color (Marie-wound Skin Appearance) Assessed, Ecchymosis -Temperature (Marie-wound Skin No Abnormality Appearance) (Pt Warm) -Tenderness on Palpation (Marie-wound No Skin Appearance) -Ulcer Cleansing Soap and Water -Foul Odor after Cleansing No -Anesthetic Used 5% Lidocaine Gel #18 Left medial LE cluster -Combined with other wound -Current Size (cm) - Length -Current Size (cm) - Width -Current Size (cm) - Depth -Total Square Cm -Photo Taken -Tunneling -Undermining/Tunneling -Circular Undermining -Exudate Amt Large -Exudate Type Serosanguineous -Wound Margin Thickened -Granulation Amt -Granulation Quality -Slough/Fibrin -Necrosis Amt -Necrotic Tissue Type -Structure Exposed -Texture (Marie-wound Skin Appearance) Assessed -Moisture (Marie-wound Skin Appearance) Assessed, Maceration -Color (Marie-wound Skin Appearance) Assessed, Ecchymosis -Temperature (Marie-wound Skin No Abnormality Appearance) (Pt Warm) -Tenderness on Palpation (Marie-wound No Skin Appearance) -Ulcer Cleansing Soap and Water -Foul Odor after Cleansing No -Anesthetic Used 5% Lidocaine Gel Lower Limb Edema Present Right Calf (cm) Right Ankle (cm) Left Calf (cm) Left Ankle (cm) WC - Nurse 2 - General Ulcer CM Notes Start: 03/15/25 11:57 Freq: Status: Active Protocol: Activity Type Activity Date Activity User E-sign Co-sign Detail Recorded Client Recorded Date Recorded By Document 03/15/25 12:47 [id number] 03/15/25 12:55 Document 03/22/25 12:26 [id number] 03/22/25 12:41 Document 03/29/25 12:01 [id number] 03/29/25 12:18 Document 04/05/25 12:33 [id number] 04/05/25 12:46 03/15/25 03/22/25 03/29/25 12:47 12:26 12:01 Wound Center Nurse 2 #24 Left Lateral Leg -Time 12:47 12:26 12:02 -Correct Patient Yes Yes Yes -Correct Side, Site, Position Yes Yes Yes -Correct Procedure Yes Yes Yes -Procedure Performed Yes Yes Yes -Type of Procedure Debridement Debridement Debridement -Clinical Debridement Subcutaneous Subcutaneous Subcutaneous -Tissue Removed Subcutaneous Subcutaneous Subcutaneous -Post Debridement (cm) - Length 1.8 1.6 1.5 -Post Debridement (cm) - Width 1.0 0.5 0.5 -Post Debridement (cm) - Depth 0.1 0.1 0.1 -Total Square (Post) (cm) 1.80 0.80 0.75 -Area of Debridement (cm) - Length 1.8 1.6 1.5 -Area of Debridement (cm) - Width 1.0 0.5 0.5 -Total Square (Area) (cm) 1.80 0.80 0.75 -Tunneling No No No -Undermining/Tunneling No No No -Circular Undermining No No No -Wound/Ulcer Outcome Not Healed Not Healed Not Healed -Ulcer Cleansing Rinsed/ Not Cleansed Rinsed/ Irrigated with Irrigated with Saline Saline -Foul Odor after Cleansing No No No -Bioengineered Tissue No No No -Bleeding Controlled with Pressure NA Pressure -Treatment Response Procedure Procedure Procedure Tolerated Well Tolerated Well Tolerated Well -Offloading No No No -Debridement - Subq, 1st 20sq cm No No No #22 R Medial/Lateral leg -Time 12:48 12:26 12:02 -Correct Patient Yes Yes Yes -Correct Side, Site, Position Yes Yes Yes -Correct Procedure Yes Yes Yes -Procedure Performed Yes Yes Yes -Type of Procedure Debridement Debridement Debridement -Clinical Debridement Subcutaneous Subcutaneous Subcutaneous -Tissue Removed Subcutaneous Subcutaneous Subcutaneous -Post Debridement (cm) - Length 11.0 10.0 10.2 -Post Debridement (cm) - Width 25.3 25.4 26.0 -Post Debridement (cm) - Depth 0.1 0.1 0.1 -Total Square (Post) (cm) 278.30 254.00 265.20 -Area of Debridement (cm) - Length 11.0 10.0 10.2 -Area of Debridement (cm) - Width 25.3 25.4 26.0 -Total Square (Area) (cm) 278.30 254.00 265.20 -Tunneling No No No -Undermining/Tunneling No No No -Circular Undermining No No No -Wound/Ulcer Outcome Not Healed Not Healed Not Healed -Ulcer Cleansing Rinsed/ Rinsed/ Rinsed/ Irrigated with Irrigated with Irrigated with Saline Saline Saline -Foul Odor after Cleansing No No No -Bioengineered Tissue No No No -Bleeding Controlled with Pressure Pressure Pressure -Treatment Response Procedure Procedure Procedure Tolerated Well Tolerated Well Tolerated Well -Offloading No No No -Debridement - Subq, 1st 20sq cm No No No #18 Left medial LE cluster -Time 12:48 12:27 12:03 -Correct Patient Yes Yes Yes -Correct Side, Site, Position Yes Yes Yes -Correct Procedure Yes Yes Yes -Procedure Performed Yes Yes Yes -Type of Procedure Debridement Debridement Debridement -Clinical Debridement Subcutaneous Subcutaneous Subcutaneous -Tissue Removed Subcutaneous Subcutaneous Subcutaneous -Post Debridement (cm) - Length 8.2 8.3 8.3 -Post Debridement (cm) - Width 14.8 13.0 13.3 -Post Debridement (cm) - Depth 0.1 0.1 0.1 -Total Square (Post) (cm) 121.36 107.90 110.39 -Area of Debridement (cm) - Length 8.2 8.3 8.3 -Area of Debridement (cm) - Width 14.8 13.0 13.3 -Total Square (Area) (cm) 121.36 107.90 110.39 -Tunneling No No No -Undermining/Tunneling No No No -Circular Undermining No No No -Wound/Ulcer Outcome Not Healed Not Healed Not Healed -Ulcer Cleansing Rinsed/ Rinsed/ Rinsed/ Irrigated with Irrigated with Irrigated with Saline Saline Saline -Foul Odor after Cleansing No No No -Bioengineered Tissue No No No -Bleeding Controlled with Pressure Pressure Pressure -Treatment Response Procedure Procedure Procedure Tolerated Well Tolerated Well Tolerated Well -Offloading No No No -Debridement - Subq, 1st 20sq cm Yes Yes Yes -Debridement, SubQ, ea addt'l 20sq cm 19 19 18 or part thereof Pain Scale: 0-10 Numeric Is Patient Pain Free? Yes Yes Yes 04/05/25 12:33 Wound Center Nurse 2 #24 Left Lateral Leg -Time 12:34 -Correct Patient Yes -Correct Side, Site, Position Yes -Correct Procedure Yes -Procedure Performed Yes -Type of Procedure Debridement -Clinical Debridement Subcutaneous -Tissue Removed Subcutaneous -Post Debridement (cm) - Length 1.4 -Post Debridement (cm) - Width 0.4 -Post Debridement (cm) - Depth 0.1 -Total Square (Post) (cm) 0.56 -Area of Debridement (cm) - Length 1.4 -Area of Debridement (cm) - Width 0.4 -Total Square (Area) (cm) 0.56 -Tunneling No -Undermining/Tunneling No -Circular Undermining No -Wound/Ulcer Outcome Not Healed -Ulcer Cleansing Rinsed/ Irrigated with Saline -Foul Odor after Cleansing No -Bioengineered Tissue No -Bleeding Controlled with Pressure -Treatment Response Procedure Tolerated Well -Offloading No -Debridement - Subq, 1st 20sq cm No #22 R Medial/Lateral leg -Time 12:34 -Correct Patient Yes -Correct Side, Site, Position Yes -Correct Procedure Yes -Procedure Performed Yes -Type of Procedure Debridement -Clinical Debridement Subcutaneous -Tissue Removed Subcutaneous -Post Debridement (cm) - Length 10.7 -Post Debridement (cm) - Width 26.5 -Post Debridement (cm) - Depth 0.1 -Total Square (Post) (cm) 283.55 -Area of Debridement (cm) - Length 10.7 -Area of Debridement (cm) - Width 26.5 -Total Square (Area) (cm) 283.55 -Tunneling No -Undermining/Tunneling No -Circular Undermining No -Wound/Ulcer Outcome Not Healed -Ulcer Cleansing Rinsed/ Irrigated with Saline -Foul Odor after Cleansing No -Bioengineered Tissue No -Bleeding Controlled with Pressure -Treatment Response Procedure Tolerated Well -Offloading No -Debridement - Subq, 1st 20sq cm No #18 Left medial LE cluster -Time 12:35 -Correct Patient Yes -Correct Side, Site, Position Yes -Correct Procedure Yes -Procedure Performed Yes -Type of Procedure Debridement -Clinical Debridement Subcutaneous -Tissue Removed Subcutaneous -Post Debridement (cm) - Length 8.2 -Post Debridement (cm) - Width 13.8 -Post Debridement (cm) - Depth 0.1 -Total Square (Post) (cm) 113.16 -Area of Debridement (cm) - Length 8.2 -Area of Debridement (cm) - Width 13.8 -Total Square (Area) (cm) 113.16 -Tunneling No -Undermining/Tunneling No -Circular Undermining No -Wound/Ulcer Outcome Not Healed -Ulcer Cleansing Rinsed/ Irrigated with Saline -Foul Odor after Cleansing No -Bioengineered Tissue No -Bleeding Controlled with Pressure -Treatment Response Procedure Tolerated Well -Offloading No -Debridement - Subq, 1st 20sq cm Yes -Debridement, SubQ, ea addt'l 20sq cm or part thereof Pain Scale: 0-10 Numeric Is Patient Pain Free? Yes WC - Nurse 3 - General Ulcer D/C NN Start: 03/15/25 11:57 Freq: Status: Active Protocol: Activity Type Activity Date Activity User E-sign Co-sign Detail Recorded Client Recorded Date Recorded By Document 03/15/25 13:08 RB [id number] 03/15/25 13:10 RB Document 03/22/25 12:44 KW [id number] 03/22/25 12:45 KW Edit Result 03/22/25 12:44 KW (1) [id number] 03/22/25 12:58 RB Document 03/29/25 12:53 RB [id number] 03/29/25 12:55 RB Document 04/05/25 12:51 KW [id number] 04/05/25 12:53 KW (1) #24 Left Lateral Leg - Primary Dressing Applied => Optilok 5x5 1/2 - Optilok 5x5 1/2 => 2 03/15/25 03/22/25 03/29/25 13:08 12:44 12:53 [facility] Nurse 3 #24 Left Lateral Leg -Ulcer Cleansing Rinsed/ Irrigated with Saline -Primary Dressing Applied Optilok 5x5 1/2 Optilok 5x5 1/2 ,Optilok 6.5x10 -Other Dressing ABD -Primary Dressing Covered/Secured with Dry Gauze,Dry Dry Gauze & Dry Gauze & Gauze & Roll Roll Gauze, Roll Gauze, Gauze,Secured Secured with Secured with with Tape Tape Tape -Optilok 5x5 1/2 2 1 -Optilok 6.5x10 2 #22 R Medial/Lateral leg -Primary Dressing Applied -Other Dressing ABD -Primary Dressing Covered/Secured with Dry Gauze,Dry Dry Gauze & Dry Gauze & Gauze & Roll Roll Gauze, Roll Gauze, Gauze,Secured Secured with Secured with with Tape Tape Tape -Optilok 6.5x10 #18 Left medial LE cluster -Other Dressing ABD -Primary Dressing Covered/Secured with Dry Gauze,Dry Dry Gauze & Dry Gauze & Gauze & Roll Roll Gauze, Roll Gauze, Gauze,Secured Secured with Secured with with Tape Tape Tape BLE -Stockings Yes: circaid Yes: PT OWN bilat CIRCAIDS -Other pt circaids Treatment Response Procedure Procedure Tolerated Well Tolerated Well Pain Scale: 0-10 Numeric Is Patient Pain Free? Yes Yes Yes WC - Visit Discharge Discharge Condition Stable Stable Stable Ambulatory Status Ambulatory, Ambulatory, Ambulatory, Walker Walker Walker Transportation Private Auto Private Auto [facility] transport Medication Reconcilliation completed & No No No provided to patient/care provider Clinical Summary of Care Provided Yes Yes Yes 04/05/25 12:51 Wound Care Center Nurse 3 #24 Left Lateral Leg -Ulcer Cleansing -Primary Dressing Applied Optilok 6.5x10 -Other Dressing -Primary Dressing Covered/Secured with -Optilok 5x5 1/2 -Optilok 6.5x10 1 #22 R Medial/Lateral leg -Primary Dressing Applied Optilok 6.5x10 -Other Dressing -Primary Dressing Covered/Secured with -Optilok 6.5x10 2 #18 Left medial LE cluster -Other Dressing superabsorb thats applied to lat side, wrap around -Primary Dressing Covered/Secured with BLE -Stockings -Other pt own circaids Treatment Response Pain Scale: 0-10 Numeric Is Patient Pain Free? Yes WC - Visit Discharge Discharge Condition Stable Ambulatory Status Ambulatory, Walker Transportation Medication Reconcilliation completed & No provided to patient/care provider Clinical Summary of Care Provided Yes Additional Wound Wound debrided: left lateral leg Laterality: Left Type of Debridement: Excisional debridement Anesthesia Used: 5% Lidocaine Gel and Cetacaine Depth: Down to and including healthy tissue and in the subcutaneous layer Percentage of wound debrided: 100 Instrument Used: - (Misonix ultrasonic debridement) Tissue Removed: Yellow slough, devitalized tissue Severity: Fat Layer Exposed Amount of bleeding with debridement: Mild Bleeding Controlled with: Compression and gauze Patient tolerated procedure: Patient tolerated procedure well Additional Wound Wound debrided: right medial leg Laterality: Right Type of Debridement: Excisional debridement Anesthesia Used: 5% Lidocaine Gel and Cetacaine Depth: Down to and including healthy tissue and in the subcutaneous layer Percentage of wound debrided: 100 Instrument Used: - (Misonix ultrasonic debridement) Tissue Removed: Yellow slough, devitalized tissue Severity: Fat Layer Exposed Amount of bleeding with debridement: Mild Bleeding Controlled with: Compression and gauze Patient tolerated procedure: Patient tolerated procedure well Assessment/Plan Assessment/Plan (1) Lymphedema: CODE(S): I89.0 - Lymphedema, not elsewhere classified (2) Hypertension: CODE(S): I10 - Essential (primary) hypertension QUALIFIERS: Hypertension type: primary hypertension Qualified Code(s): I10 - Essential (primary) hypertension (3) Hyperlipidemia: CODE(S): E78.5 - Hyperlipidemia, unspecified QUALIFIERS: Hyperlipidemia type: mixed hyperlipidemia Qualified Code(s): E78.2 - Mixed hyperlipidemia (4) History of DVT (deep vein thrombosis): CODE(S): Z86.718 - Personal history of other venous thrombosis and embolism (5) Venous insufficiency (chronic) (peripheral): CODE(S): I87.2 - Venous insufficiency (chronic) (peripheral) (6) Venous ulcer of left lower extremity with varicose veins: CODE(S): I83.029 - Varicose veins of left lower extremity with ulcer of unspecified site (7) Edema: CODE(S): R60.9 - Edema, unspecified QUALIFIERS: Edema type: unspecified Qualified Code(s): R60.9 - Edema, unspecified (8) 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 At home wound-care instructions: Will use Circaid compression garments with super absorber and kerlix to right LE and left LE changed every other day. Due to his chronic lymphedema and being unable to don traditional compression stockings and the presence of venous ulcers on his LE b/l, it is medically necessary for him to have Circaid compression garments. He is using Circaid compression to both legs. I suspect he is not very compliant with his lymphedema pumps and not getting adequate compression with tubigrips. Due to the delayed progress in wound healing of his venous ulcers, we discussed applying for advanced wound healing product for healing his ulcer. Due to the size of his ulcer, Theraskin application approval was requested from his insurance as it is medically necessary for salvaging his limb and healing his ulcer. He underwent 2 applications of Theraskin to this ulcer. Since application of Theraskin he had much improvement in epithelialization of his ulcer even though the overall size is not significantly changed there was progress. He is using Circaid compression wraps. Off-loading: The patient was instructed to avoid pressure and friction on the affected areas. Reposition every 2 hours at minimum. Avoid prolonged standing and/or dangling of legs. When seated, feet should be elevated at chest level. Frequent ambulation is encouraged. Encouraged lymphedema pump use. Diet: Patient encouraged to increase protein intake while taking caution to avoid high carbohydrate and/or sugar intake. Labs/cultures/imaging: Wound culture showed Pseudomonas, Escherichia hermannii, Raoultella planticola, Vancomycin Resist. E. faecalis, Alcaligenes faecalis ssp faeca, Staphylococcus cohnii urealyti and anaerobic bacteria on 06/15/24 and he completed on Levofloxacin and Augmentin. Wound culture taken today on right lateral ulcer which showed Raoultella planticola, Staph hemolyticus, staph epidermidis and morganella morganii but no anaeroobic bacteria, Levofloxacin and doxycyline were prescribed based on culture results. Labs ordered 10/19/2024. Vitamin D was low A1C 5.4% Wound culture from 12/07/24 was positive for Providencia stuartii, Vancomycin resistant E. Faecalis, Corynebacterium striatum and completed Augmentin orally. Follow-up: Return in 2 weeks for wound care follow up and have dressing changed by home health Mondays. Return sooner or report to the emergency room should symptoms worsen, or new symptoms arise. Note: [employer] speech recognition dynamics ax developer software was used to create port ions of this document. Sound-alike and misspelled words, as well as other dynamics ax developer errors may be contained in the documentation.
== END 2025-04-08 23:59 | disposition home or self-care (01) ==
LOC: WC 11:15
PROVIDERS: PCP Family Medicine; Referring Provider Family Medicine; Visit Provider Family Medicine
DX: I83.893 Varicose veins of bilateral lower extremities with other complications (principal); L97.922 Non-pressure chronic ulcer of unspecified part of left lower leg with fat layer exposed; L97.912 Non-pressure chronic ulcer of unspecified part of right lower leg with fat layer exposed; I87.2 Venous insufficiency (chronic) (peripheral); E78.2 Mixed hyperlipidemia; R60.9 Edema, unspecified; I10 Essential (primary) hypertension; I89.0 Lymphedema, not elsewhere classified; Z86.718 Personal history of other venous thrombosis and embolism
CPT/HCPCS: 11042; 11045

== ENCOUNTER 2025-05-03 11:30 | Outpatient (RCR) | payer MEDICARE, OTHER, SELFPAY ==
[2025-04-19 11:30] VITALS: BP 120/82; PULSE 64; RESP 16; TEMP 36.1
--- NOTE | 2025-04-19 13:05 | WC ---
PHOTO 04/19/25 RIGHT MED/LAT LEG
--- NOTE | 2025-04-19 13:05 | WC ---
PHOTO 04/19/25 RIGHT MED/LAT LEG
--- NOTE | 2025-04-19 13:06 | WC ---
PHOTO 04/19/25 Alicia MALHOTRA
--- NOTE | 2025-04-19 13:06 | WC ---
PHOTO 04/19/25 LEFT JOANNA GARRIDO
--- NOTE | 2025-04-19 13:22 | PCM.WC.PN ---
History of Present Illness Date of Service: 04/19/25 Chief Complaint: venous ulcers of left lower extremity History of Wound: Mauricio is a 69 yo gentleman who is here today for evaluation of ulcers to to his bilateral lower legs. He has been treated multiple times in the past at the wound healing center for similar ulcers. The left LE ulcer started after he developed increased swelling and blisters of left leg in October and the right leg started sometime at the end of October. He was seen at PCP's office a culture was taken and it was resistant to several antibiotics. He was treated initially with Levaquin but had myalgias and then was treated with doxycycline which he finished 2 days ago. He denies improvement and is having swelling to his left calf and thigh. He has been having swelling to both lower extremities for many years and it has worsened over the last few months. He has not been compliant with compression. He has had increased pain especially in the left leg. He has clear yellow drainage and redness without odor or warmth. He is anti-coagulated on coumadin. He has been washing with Dial soap and witch ifrah. He had been using Collagen at times and using Calcium Alginate and covering with ABD pads during October. He was treated with 3M compression and Aquacel Ag. He was referred to the wound center for ongoing treatment. His ulcers have moderate to heavy drainage. He was in the hospital from 11/30/22 until 12/09/22 for treatment of cellulitis and edema. He underwent treatment with Vancomycin and IV lasix and compression. Discharged on 12/09/22. He returned to his assisted living apartment on Tuesday12/21/22. Wound culture from 12/07/24 was positive for Providencia stuartii, Vancomycin resistant E. Faecalis, Corynebacterium striatum and completed Augmentin orally. His edema is better this week and he is tolerating Circaid compression. 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 He continues to use his lymphedema pumps but continues to have pain with use of these pumps. 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 Subjective Subjective Mauricio is a 69-year-old male with longstanding history of chronic venous ulceration to the left lower extremity and a right lower extremity venous ulcer that is nearly circumferential. There has been minimal improvement over the last 3 weeks. His edema is worse. He is more compliant with elevation but still is not compliant with compression pump frequency due to pain with use of pumps. Wound culture from 12/07/24 was positive for Providencia stuartii, Vancomycin resistant E. Faecalis, Corynebacterium striatum and completed Augmentin orally. His edema is better this week and he is tolerating Circaid compression. 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 He continues to use his lymphedema pumps but continues to have pain with use of these pumps. 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 Objective Data Objective Data Vital Signs: Vital Signs Temp Pulse Resp BP O2 Del Method 96.9 F L 64 16 120/82 H Room Air 04/19/25 11:30 04/19/25 11:30 04/19/25 11:30 04/19/25 11:30 04/19/25 11:30 Oxygen Delivery Method Room Air Physical Exam Const alert, oriented x3 and no apparent distress General Appearance: cooperative and comfortable HEENT normocephalic and head/scalp atraumatic Lymph Lymphatic: lymphedema moderate Resp normal respiratory effort Effort and Inspection: able to speak in complete sentences Cardio regular rate and regular rhythm Extremity Extremity Narrative: His ulcers are painful and the right lower leg remains more swollen than his left but there is good granulation tissue throughout and slough that is nearly completely removed post - debridement, edges of ulcers are beveled without rolled borders General Extremity: edema bilateral lower extremity Details: severe Skin General Skin Exam: venous stasis and dermatitis Wounds: wounds noted Wound Narrative: as in clinical panel, + devitalized tissue, there is increased depth, + granulation tissue bilateral ulcer with good granulation and moderate slough prior to debridement and minimal post debridement Psych mental status grossly normal, thought process normal, cooperative and affect normal Debridement Note Debridement Note Wound debrided: left medial LE ulcer Laterality: Left Type of Debridement: Excisional debridement Anesthesia Used: 5% Lidocaine Gel and Cetacaine Depth: Down to and including healthy tissue and in the subcutaneous layer Percentage of wound debrided: 100 Instrument Used: - (Misonix ultrasonic debridement) Tissue Removed: Yellow slough, devitalized tissue Severity: Fat Layer Exposed Amount of bleeding with debridement: Mild Bleeding Controlled with: Compression and gauze Patient tolerated procedure: Patient tolerated procedure well Post-Debridement Measurements and Additional Note: Post-Debridement Measurements/Treatment DEBBIE - Nurse 1 - General Ulcer Assessment Start: 04/19/25 11:30 Freq: Status: Active Protocol: ONDINA Activity Type Activity Date Activity User E-sign Co-sign Detail Recorded Client Recorded Date Recorded By Document 04/19/25 11:30 KW [id number] 04/19/25 11:52 KW 04/19/25 11:30 WC - Today's Visit Information Type of service Follow-up Visit (Physician/[facility] ) Arrival Mode Ambulatory, Walker Patient Identification Verified (Name & Yes ) Vital Signs Temperature (97.8 F-99.1 F) 96.9 F L Temperature Source Temporal Pulse Rate (60-100) 64 Pulse Location Monitor Respiratory Rate (12-18) 16 Respiratory rate source Observation Oxygen Delivery Method Room Air Blood Pressure (90/60-120/80) 120/82 H Blood Pressure Mean (mm Hg) 94 Source Monitor Position Semi-Fowlers Blood Pressure Location Right Arm History Since Last Visit- (Skip if this is Patient's initial visit) Have you changed medications since your No last visit? Any new allergies or adverse reactions No Had a fall/change in ADL's that may No increase risk of falls Signs or symptoms of abuse and/or No neglect since last visit Have you been in the hospital since your No last visit? Has dressing in place as prescribed Yes Has compression in place as prescribed Yes Has offloadiing in place as prescribed N/A Experienced any changes in pain level or No management Left Footwear Regular Shoe Right Footwear Regular Shoe Pain Scale: 0-10 Numeric Is Patient Pain Free? Yes DEBBIE - Nurse 1 - General Ulcer Measurement Start: 04/19/25 11:30 Freq: Status: Active Protocol: Activity Type Activity Date Activity User E-sign Co-sign Detail Recorded Client Recorded Date Recorded By Document 04/19/25 11:30 KW [id number] 04/19/25 11:52 KW 04/19/25 11:30 Wound Center Nurse 1 Right Calf (cm) 48.5 Right Ankle (cm) 30.5 Left Calf (cm) 46 Left Ankle (cm) 29.5 WC - Nurse 2 - General Ulcer CM Notes Start: 04/19/25 11:30 Freq: Status: Active Protocol: Activity Type Activity Date Activity User E-sign Co-sign Detail Recorded Client Recorded Date Recorded By Document 04/19/25 12:12 [id number] 04/19/25 12:26 04/19/25 12:12 Wound Center Nurse 2 #24 Left Lateral Leg -Time 12:13 -Correct Patient Yes -Correct Side, Site, Position Yes -Correct Procedure Yes -Procedure Performed Yes -Type of Procedure Debridement -Clinical Debridement Subcutaneous -Tissue Removed Subcutaneous -Post Debridement (cm) - Length 1.2 -Post Debridement (cm) - Width 0.4 -Post Debridement (cm) - Depth 0.1 -Total Square (Post) (cm) 0.48 -Area of Debridement (cm) - Length 1.2 -Area of Debridement (cm) - Width 0.4 -Total Square (Area) (cm) 0.48 -Tunneling No -Undermining/Tunneling No -Circular Undermining No -Wound/Ulcer Outcome Not Healed -Ulcer Cleansing Rinsed/ Irrigated with Saline -Foul Odor after Cleansing No -Bioengineered Tissue No -Bleeding Controlled with Pressure -Treatment Response Procedure Tolerated Well -Offloading No -Debridement - Subq, 1st 20sq cm No #22 R Medial/Lateral leg -Time 12:14 -Correct Patient Yes -Correct Side, Site, Position Yes -Correct Procedure Yes -Procedure Performed Yes -Type of Procedure Debridement -Clinical Debridement Subcutaneous -Tissue Removed Subcutaneous -Post Debridement (cm) - Length 11.0 -Post Debridement (cm) - Width 27.5 -Post Debridement (cm) - Depth 0.1 -Total Square (Post) (cm) 302.50 -Area of Debridement (cm) - Length 11.0 -Area of Debridement (cm) - Width 27.5 -Total Square (Area) (cm) 302.50 -Tunneling No -Undermining/Tunneling No -Circular Undermining No -Wound/Ulcer Outcome Not Healed -Ulcer Cleansing Rinsed/ Irrigated with Saline -Foul Odor after Cleansing No -Bioengineered Tissue No -Bleeding Controlled with Pressure -Treatment Response Procedure Tolerated Well -Offloading No -Debridement - Subq, 1st 20sq cm No #18 Left medial LE cluster -Time 12:14 -Correct Patient Yes -Correct Side, Site, Position Yes -Correct Procedure Yes -Procedure Performed Yes -Type of Procedure Debridement -Clinical Debridement Subcutaneous -Tissue Removed Subcutaneous -Post Debridement (cm) - Length 8.3 -Post Debridement (cm) - Width 13.0 -Post Debridement (cm) - Depth 0.1 -Total Square (Post) (cm) 107.90 -Area of Debridement (cm) - Length 8.3 -Area of Debridement (cm) - Width 13.0 -Total Square (Area) (cm) 107.90 -Tunneling No -Undermining/Tunneling No -Circular Undermining No -Wound/Ulcer Outcome Not Healed -Ulcer Cleansing Rinsed/ Irrigated with Saline -Foul Odor after Cleansing No -Bioengineered Tissue No -Bleeding Controlled with Pressure -Treatment Response Procedure Tolerated Well -Debridement - Subq, 1st 20sq cm Yes -Debridement, SubQ, ea addt'l 20sq cm 20 or part thereof Pain Scale: 0-10 Numeric Is Patient Pain Free? Yes - Nurse 3 - General Ulcer D/C NN Start: 04/19/25 11:30 Freq: Status: Active Protocol: Activity Type Activity Date Activity User E-sign Co-sign Detail Recorded Client Recorded Date Recorded By Document 04/19/25 12:50 ARPIT [id number] 04/19/25 12:53 RB 04/19/25 12:50 Wound Care Center Nurse 3 #24 Left Lateral Leg -Ulcer Cleansing Rinsed/ Irrigated with Saline -Primary Dressing Applied Optilok 6.5x10 -Primary Dressing Covered/Secured with Dry Gauze & Roll Gauze, Secured with Tape -Optilok 6.5x10 1 #22 R Medial/Lateral leg -Ulcer Cleansing Rinsed/ Irrigated with Saline -Primary Dressing Applied Optilok 6.5x10 -Primary Dressing Covered/Secured with Dry Gauze & Roll Gauze, Secured with Tape -Optilok 6.5x10 1 #18 Left medial LE cluster -Other Dressing abd -Primary Dressing Covered/Secured with Dry Gauze & Roll Gauze, Secured with Tape BLE -Stockings Yes: circaids Treatment Response Procedure Tolerated Well Pain Scale: 0-10 Numeric Is Patient Pain Free? Yes - Visit Discharge Discharge Condition Stable Ambulatory Status Ambulatory, Walker Transportation Private Auto Medication Reconcilliation completed & No provided to patient/care provider Clinical Summary of Care Provided Yes Additional Wound Wound debrided: left lateral leg Laterality: Left Type of Debridement: Excisional debridement Anesthesia Used: 5% Lidocaine Gel and Cetacaine Depth: Down to and including healthy tissue and in the subcutaneous layer Percentage of wound debrided: 100 Instrument Used: - (Misonix ultrasonic debridement) Tissue Removed: Yellow slough, devitalized tissue Severity: Fat Layer Exposed Amount of bleeding with debridement: Mild Bleeding Controlled with: Compression and gauze Patient tolerated procedure: Patient tolerated procedure well Additional Wound Wound debrided: right medial leg Laterality: Right Type of Debridement: Excisional debridement Anesthesia Used: 5% Lidocaine Gel and Cetacaine Depth: Down to and including healthy tissue and in the subcutaneous layer Percentage of wound debrided: 100 Instrument Used: - (Misonix ultrasonic debridement) Tissue Removed: Yellow slough, devitalized tissue Severity: Fat Layer Exposed Amount of bleeding with debridement: Mild Bleeding Controlled with: Compression and gauze Patient tolerated procedure: Patient tolerated procedure well Assessment/Plan Assessment/Plan (1) Lymphedema: CODE(S): I89.0 - Lymphedema, not elsewhere classified (2) Hypertension: CODE(S): I10 - Essential (primary) hypertension QUALIFIERS: Hypertension type: primary hypertension Qualified Code(s): I10 - Essential (primary) hypertension (3) Hyperlipidemia: CODE(S): E78.5 - Hyperlipidemia, unspecified QUALIFIERS: Hyperlipidemia type: mixed hyperlipidemia Qualified Code(s): E78.2 - Mixed hyperlipidemia (4) History of DVT (deep vein thrombosis): CODE(S): Z86.718 - Personal history of other venous thrombosis and embolism (5) Venous insufficiency (chronic) (peripheral): CODE(S): I87.2 - Venous insufficiency (chronic) (peripheral) (6) Venous ulcer of left lower extremity with varicose veins: CODE(S): I83.029 - Varicose veins of left lower extremity with ulcer of unspecified site (7) Edema: CODE(S): R60.9 - Edema, unspecified QUALIFIERS: Edema type: unspecified Qualified Code(s): R60.9 - Edema, unspecified (8) 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 At home wound-care instructions: Will use Circaid compression garments with super absorber and kerlix to right LE and left LE changed every other day. Due to his chronic lymphedema and being unable to don traditional compression stockings and the presence of venous ulcers on his LE b/l, it is medically necessary for him to have Circaid compression garments. He is using Circaid compression to both legs. I suspect he is not very compliant with his lymphedema pumps and not getting adequate compression with tubigrips and Circaids. Due to the delayed progress in wound healing of his venous ulcers, we discussed applying for advanced wound healing product for healing his ulcer. Due to the size of his ulcer, Theraskin application approval was requested from his insurance as it is medically necessary for salvaging his limb and healing his ulcer. He underwent 2 applications of Theraskin to this ulcer. Since application of Theraskin he had much improvement in epithelialization of his ulcer even though the overall size is not significantly changed there was progress. He is using Circaid compression wraps. Off-loading: The patient was instructed to avoid pressure and friction on the affected areas. Reposition every 2 hours at minimum. Avoid prolonged standing and/or dangling of legs. When seated, feet should be elevated at chest level. Frequent ambulation is encouraged. Encouraged lymphedema pump use. Diet: Patient encouraged to increase protein intake while taking caution to avoid high carbohydrate and/or sugar intake. Labs/cultures/imaging: Wound culture showed Pseudomonas, Escherichia hermannii, Raoultella planticola, Vancomycin Resist. E. faecalis, Alcaligenes faecalis ssp faeca, Staphylococcus cohnii urealyti and anaerobic bacteria on 06/15/24 and he completed on Levofloxacin and Augmentin. Wound culture taken today on right lateral ulcer which showed Raoultella planticola, Staph hemolyticus, staph epidermidis and morganella morganii but no anaeroobic bacteria, Levofloxacin and doxycyline were prescribed based on culture results. Labs ordered 10/19/2024. Vitamin D was low A1C 5.4% Wound culture from 12/07/24 was positive for Providencia stuartii, Vancomycin resistant E. Faecalis, Corynebacterium striatum and completed Augmentin orally. Follow-up: Return in 2 weeks for wound care follow up and have dressing changed by home health Mondays. Return sooner or report to the emergency room should symptoms worsen, or new symptoms arise. Note: [employer] speech recognition computer network specialist software was used to create portions of this document. Sound-alike and misspelled words, as well as other computer network specialist errors may be contained in the documentation.
[2025-05-03 11:39] VITALS: BP 135/80; PULSE 70; RESP 18; TEMP 36.6
--- NOTE | 2025-05-03 15:36 | PN.PCM_ITS ---
History of Present Illness Date of Service: 05/03/25 Chief Complaint: venous ulcers of left lower extremity History of Wound: Mauricio is a 69 yo gentleman who is here today for evaluation of ulcers to to his bilateral lower legs. He has been treated multiple times in the past at the wound healing center for similar ulcers. The left LE ulcer started after he developed increased swelling and blisters of left leg in October and the right leg started sometime at the end of October. He was seen at PCP's office a culture was taken and it was resistant to several antibiotics. He was treated initially with Levaquin but had myalgias and then was treated with doxycycline which he finished 2 days ago. He denies improvement and is having swelling to his left calf and thigh. He has been having swelling to both lower extremities for many years and it has worsened over the last few months. He has not been compliant with compression. He has had increased pain especially in the left leg. He has clear yellow drainage and redness without odor or warmth. He is anti- coagulated on coumadin. He has been washing with Dial soap and witch ifrah. He had been using Collagen at times and using Calcium Alginate and covering with ABD pads during October. He was treated with 3M compression and Aquacel Ag. He was referred to the wound center for ongoing treatment. His ulcers have moderate to heavy drainage. He was in the hospital from 11/30/22 until 12/09/22 for treatment of cellulitis and edema. He underwent treatment with Vancomycin and IV lasix and compression. Discharged on 12/09/22. He returned to his assisted living apartment on Tuesday12/21/22. Wound culture from 12/07/24 was positive for Providencia stuartii, Vancomycin resistant E. Faecalis, Corynebacterium striatum and completed Augmentin orally. His edema is better this week and he is tolerating Circaid compression. 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 He continues to use his lymphedema pumps but continues to have pain with use of these pumps. 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 Subjective Subjective Mauricio is a 69-year-old male with longstanding history of chronic venous ulceration to the left lower extremity and a right lower extremity venous ulcer that is nearly circumferential. There has been minimal improvement over the last 3 weeks. His edema is worse. He is more compliant with elevation but still is not compliant with compression pump frequency due to pain with use of pumps. Wound culture from 12/07/24 was positive for Providencia stuartii, Vancomycin resistant E. Faecalis, Corynebacterium striatum and completed Augmentin orally. His edema is better this week and he is tolerating Circaid compression. 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 He continues to use his lymphedema pumps but continues to have pain with use of these pumps. Vascular surgery saw him and he has iliocaval obstructi on with infrarenal IVC and multiple pelvic and abdominal venous collaterals which his lower extremity wounds are most likely felt to be a sequela from venous hypertension and he underwent successful vascular intervention on 01/07/25. Objective Data Objective Data Vital Signs: Vital Signs Temp Pulse Resp BP O2 Del Method 97.8 F 70 18 135/80 H Room Air 05/03/25 11:39 05/03/25 11:39 05/03/25 11:39 05/03/25 11:39 05/03/25 11:39 Oxygen Delivery Method Room Air Physical Exam Const alert, oriented x3 and no apparent distress General Appearance: cooperative and comfortable HEENT normocephalic and head/scalp atraumatic Lymph Lymphatic: lymphedema moderate Resp normal respiratory effort Effort and Inspection: able to speak in complete sentences Cardio regular rate and regular rhythm Extremity Extremity Narrative: His ulcers are painful and the right lower leg remains more swollen than his left but there is good granulation tissue throughout and slough that is nearly completely removed post - debridement, edges of ulcers are beveled without rolled borders General Extremity: edema bilateral lower extremity Details: severe Skin General Skin Exam: venous stasis and dermatitis Wounds: wounds noted Wound Narrative: as in clinical panel, + devitalized tissue, there is increased depth, + granulation tissue bilateral ulcer with good granulation and moderate slough prior to debridement and minimal post debridement Psych mental status grossly normal, thought process normal, cooperative and affect normal Debridement Note Debridement Note Wound debrided: left medial LE ulcer Laterality: Left Type of Debridement: Excisional debridement Anesthesia Used: 5% Lidocaine Gel and Cetacaine Depth: Down to and including healthy tissue and in the subcutaneous layer Percentage of wound debrided: 100 Instrument Used: - (Misonix ultrasonic debridement) Tissue Removed: Yellow slough, devitalized tissue Severity: Fat Layer Exposed Amount of bleeding with debridement: Mild Bleeding Controlled with: Compression and gauze Patient tolerated procedure: Patient tolerated procedure well Post-Debridement Measurements and Additional Note: Post-Debridement Measurements/Treatment - Nurse 1 - General Ulcer Assessment Start: 04/19/25 11:30 Freq: Status: Active Protocol: ONDINA Activity Type Activity Date Activity User E-sign Co-sign Detail Recorded Client Recorded Date Recorded By Document 04/19/25 11:30 KW [id number] 04/19/25 11:52 KW Document 05/03/25 11:39 KW [id number] 05/03/25 11:59 KW 04/19/25 05/03/25 11:30 11:39 - Today's Visit Information Type of service Follow-up Visit Initial Visit (Physician/RATING SPECIALIST ) Arrival Mode Ambulatory, Ambulatory, Walker Walker Patient Identification Verified (Name & Yes Yes ) Vital Signs Temperature (97.8 F-99.1 F) 96.9 F L 97.8 F Temperature Source Temporal Temporal Pulse Rate (60-100) 64 70 Pulse Location Monitor Monitor Respiratory Rate (12-18) 16 18 Respiratory rate source Observation Observation Oxygen Delivery Method Room Air Room Air Blood Pressure (90/60-120/80) 120/82 H 135/80 H Blood Pressure Mean (mm Hg) 94 98 Source Monitor Monitor Position Semi-Fowlers Semi-Fowlers Blood Pressure Location Right Arm Right Arm History Since Last Visit- (Skip if this is Patient's initial visit) Have you changed medications since your No No last visit? Any new allergies or adverse reactions No No Had a fall/change in ADL's that may No No increase risk of falls Signs or symptoms of abuse and/or No No neglect since last visit Have you been in the hospital since your No No last visit? Has dressing in place as prescribed Yes Yes Has compression in place as prescribed Yes Yes Has offloadiing in place as prescribed N/A N/A Experienced any changes in pain level or No No management Left Footwear Regular Shoe Regular Shoe Right Footwear Regular Shoe Regular Shoe Pain Scale: 0-10 Numeric Is Patient Pain Free? Yes Yes - Nurse 1 - General Ulcer Measurement Start: 04/19/25 11:30 Freq: Status: Active Protocol: Activity Type Activity Date Activity User E-sign Co-sign Detail Recorded Client Recorded Date Recorded By Document 04/19/25 11:30 KW [id number] 04/19/25 11:52 KW Document 05/03/25 11:39 KW [id number] 05/03/25 11:59 KW 04/19/25 05/03/25 11:30 11:39 Wound Center Nurse 1 #24 Left Lateral Leg -Current Size (cm) - Length 0.1 -Current Size (cm) - Width 0.1 -Current Size (cm) - Depth 0 -Total Square Cm 0.01 -Exudate Amt None Present -Texture (Marie-wound Skin Appearance) Assessed -Moisture (Marie-wound Skin Appearance) Assessed -Color (Marie-wound Skin Appearance) Assessed #22 R Medial/Lateral leg -Exudate Amt Medium -Exudate Type Serosanguineous -Wound Margin Distinct, Outline Attached -Granulation Amt Large (67-100%) -Granulation Quality Red -Texture (Marie-wound Skin Appearance) Assessed -Moisture (Marie-wound Skin Appearance) Assessed -Color (Marie-wound Skin Appearance) Assessed -Temperature (Marie-wound Skin No Abnormality Appearance) (Pt Warm) -Tenderness on Palpation (Marie-wound No Skin Appearance) -Ulcer Cleansing Soap and Water -Foul Odor after Cleansing No -Anesthetic Used 5% Lidocaine Gel #18 Left medial LE cluster -Exudate Amt Medium -Exudate Type Serosanguineous -Wound Margin Distinct, Outline Attached -Granulation Amt Large (67-100%) -Granulation Quality Red -Texture (Marie-wound Skin Appearance) Assessed -Moisture (Marie-wound Skin Appearance) Assessed -Color (Marie-wound Skin Appearance) Assessed -Temperature (Marie-wound Skin No Abnormality Appearance) (Pt Warm) -Tenderness on Palpation (Marie-wound No Skin Appearance) -Ulcer Cleansing Soap and Water -Foul Odor after Cleansing No -Anesthetic Used 5% Lidocaine Gel Right Calf (cm) 48.5 44 Right Ankle (cm) 30.5 31 Left Calf (cm) 46 42 Left Ankle (cm) 29.5 30 WC - Nurse 2 - General Ulcer CM Notes Start: 04/19/25 11:30 Freq: Status: Active Protocol: Activity Type Activity Date Activity User E-sign Co-sign Detail Recorded Client Recorded Date Recorded By Document 04/19/25 12:12 GM [id number] 04/19/25 12:26 GM Document 05/03/25 13:03 DS [id number] 05/03/25 13:19 DS Edit Result 05/03/25 13:03 DS (1) [id number] 05/03/25 13:35 DS (1) #18 Left medial LE cluster - Debridement - Subq, 1st 20sq cm Yes => No 04/19/25 05/03/25 12:12 13:03 Wound Center Nurse 2 #24 Left Lateral Leg -Time 12:13 13:03 -Correct Patient Yes Yes -Correct Side, Site, Position Yes Yes -Correct Procedure Yes Yes -Procedure Performed Yes Yes -Type of Procedure Debridement Debridement -Clinical Debridement Subcutaneous Subcutaneous -Tissue Removed Subcutaneous Subcutaneous -Post Debridement (cm) - Length 1.2 0.8 -Post Debridement (cm) - Width 0.4 0.3 -Post Debridement (cm) - Depth 0.1 0.1 -Total Square (Post) (cm) 0.48 0.24 -Area of Debridement (cm) - Length 1.2 0.8 -Area of Debridement (cm) - Width 0.4 0.3 -Total Square (Area) (cm) 0.48 0.24 -Tunneling No No -Undermining/Tunneling No No -Circular Undermining No No -Wound/Ulcer Outcome Not Healed Not Healed -Ulcer Cleansing Rinsed/ Rinsed/ Irrigated with Irrigated with Saline Saline -Foul Odor after Cleansing No No -Bioengineered Tissue No No -Bleeding Controlled with Pressure Pressure -Treatment Response Procedure Procedure Tolerated Well Tolerated Well -Offloading No -Debridement - Subq, 1st 20sq cm No Yes -Debridement, SubQ, ea addt'l 20sq cm 19 or part thereof #22 R Medial/Lateral leg -Time 12:14 13:03 -Correct Patient Yes Yes -Correct Side, Site, Position Yes Yes -Correct Procedure Yes Yes -Procedure Performed Yes Yes -Type of Procedure Debridement Debridement -Clinical Debridement Subcutaneous Subcutaneous -Tissue Removed Subcutaneous Subcutaneous -Post Debridement (cm) - Length 11.0 11.0 -Post Debridement (cm) - Width 27.5 25.8 -Post Debridement (cm) - Depth 0.1 0.1 -Total Square (Post) (cm) 302.50 283.80 -Area of Debridement (cm) - Length 11.0 11.0 -Area of Debridement (cm) - Width 27.5 25.8 -Total Square (Area) (cm) 302.50 283.80 -Tunneling No No -Undermining/Tunneling No No -Circular Undermining No No -Wound/Ulcer Outcome Not Healed Not Healed -Ulcer Cleansing Rinsed/ Rinsed/ Irrigated with Irrigated with Saline Saline -Foul Odor after Cleansing No No -Bioengineered Tissue No No -Bleeding Controlled with Pressure Pressure -Treatment Response Procedure Procedure Tolerated Well Tolerated Well -Offloading No -Debridement - Subq, 1st 20sq cm No No #18 Left medial LE cluster -Time 12:14 13:03 -Correct Patient Yes Yes -Correct Side, Site, Position Yes Yes -Correct Procedure Yes Yes -Procedure Performed Yes Yes -Type of Procedure Debridement Debridement -Clinical Debridement Subcutaneous Subcutaneous -Tissue Removed Subcutaneous Subcutaneous -Post Debridement (cm) - Length 8.3 8.2 -Post Debridement (cm) - Width 13.0 13.3 -Post Debridement (cm) - Depth 0.1 0.1 -Total Square (Post) (cm) 107.90 109.06 -Area of Debridement (cm) - Length 8.3 8.2 -Area of Debridement (cm) - Width 13.0 13.3 -Total Square (Area) (cm) 107.90 109.06 -Tunneling No No -Undermining/Tunneling No No -Circular Undermining No No -Wound/Ulcer Outcome Not Healed Not Healed -Ulcer Cleansing Rinsed/ Rinsed/ Irrigated with Irrigated with Saline Saline -Foul Odor after Cleansing No No -Bioengineered Tissue No No -Bleeding Controlled with Pressure Pressure -Treatment Response Procedure Tolerated Well -Debridement - Subq, 1st 20sq cm Yes No -Debridement, SubQ, ea addt'l 20sq cm 20 or part thereof Pain Scale: 0-10 Numeric Is Patient Pain Free? Yes Yes WC - Nurse 3 - General Ulcer D/C NN Start: 04/19/25 11:30 Freq: Status: Active Protocol: Activity Type Activity Date Activity User E-sign Co-sign Detail Recorded Client Recorded Date Recorded By Document 04/19/25 12:50 RB [id number] 04/19/25 12:53 RB Document 05/03/25 13:49 RB [id number] 05/03/25 13:52 RB 04/19/25 05/03/25 12:50 13:49 Wound Care Center Nurse 3 #24 Left Lateral Leg -Ulcer Cleansing Rinsed/ Rinsed/ Irrigated with Irrigated with Saline Saline -Primary Dressing Applied Optilok 6.5x10 -Other Dressing abd pad -Primary Dressing Covered/Secured with Dry Gauze & Dry Gauze & Roll Gauze, Roll Gauze, Secured with Secured with Tape Tape -Optilok 6.5x10 1 #22 R Medial/Lateral leg -Ulcer Cleansing Rinsed/ Irrigated with Saline -Primary Dressing Applied Optilok 6.5x10 -Other Dressing abd -Primary Dressing Covered/Secured with Dry Gauze & Dry Gauze & Roll Gauze, Roll Gauze, Secured with Secured with Tape Tape -Optilok 6.5x10 1 #18 Left medial LE cluster -Other Dressing abd abd -Primary Dressing Covered/Secured with Dry Gauze & Dry Gauze & Roll Gauze, Roll Gauze, Secured with Secured with Tape Tape BLE -Stockings Yes: circaids Yes: circaids bilat Treatment Response Procedure Procedure Tolerated Well Tolerated Well Pain Scale: 0-10 Numeric Is Patient Pain Free? Yes Yes WC - Visit Discharge Discharge Condition Stable Stable Ambulatory Status Ambulatory, Ambulatory, Walker Walker Transportation [facility] Med[facility] Reconcilliation completed & No No provided to patient/care provider Clinical Summary of Care Provided Yes Yes Additional Wound Wound debrided: left lateral leg Laterality: Left Type of Debridement: Excisional debridement Anesthesia Used: 5% Lidocaine Gel and Cetacaine Depth: Down to and including healthy tissue and in the subcutaneous layer Percentage of wound debrided: 100 Instrument Used: - (Misonix ultrasonic debridement) Tissue Removed: Yellow slough, devitalized tissue Severity: Fat Layer Exposed Amount of bleeding with debridement: Mild Bleeding Controlled with: Compression and gauze Patient tolerated procedure: Patient tolerated procedure well Additional Wound Wound debrided: right medial leg Laterality: Right Type of Debridement: Excisional debridement Anesthesia Used: 5% Lidocaine Gel and Cetacaine Depth: Down to and including healthy tissue and in the subcutaneous layer Percentage of wound debrided: 100 Instrument Used: - (Misonix ultrasonic debridement) Tissue Removed: Yellow slough, devitalized tissue Severity: Fat Layer Exposed Amount of bleeding with debridement: Mild Bleeding Controlled with: Compression and gauze Patient tolerated procedure: Patient tolerated procedure well Assessment/Plan Assessment/Plan (1) Lymphedema: CODE(S): I89.0 - Lymphedema, not elsewhere classified (2) Hypertension: CODE(S): I10 - Essential (primary) hypertension QUALIFIERS: Hypertension type: primary hypertension Qualified Code(s): I10 - Essential (primary) hypertension (3) Hyperlipidemia: CODE(S): E78.5 - Hyperlipidemia, unspecified QUALIFIERS: Hyperlipidemia type: mixed hyperlipidemia Qualified Code(s): E78.2 - Mixed hyperlipidemia (4) History of DVT (deep vein thrombosis): CODE(S): Z86.718 - Personal history of other venous thrombosis and embolism (5) Venous insufficiency (chronic) (peripheral): CODE(S): I87.2 - Venous insufficiency (chronic) (peripheral) (6) Venous ulcer of left lower extremity with varicose veins: CODE(S): I83.029 - Varicose veins of left lower extremity with ulcer of unspecified site (7) Edema: CODE(S): R60.9 - Edema, unspecified QUALIFIERS: Edema type: unspecified Qualified Code(s): R60.9 - Edema, unspecified (8) 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 At home wound-care instructions: Will use Circaid compression garments with super absorber and kerlix to right LE and left LE changed every day. Due to his chronic lymphedema and being unable to don traditional compression stockings and the presence of venous ulcers on his LE b/l, it is medically necessary for him to have Circaid compression garments. He is using Circaid compression to both legs. I suspect he is not very compliant with his lymphedema pumps and not getting adequate compression with tubigrips and Circaids. Due to the delayed progress in wound healing of his venous ulcers, we discussed applying for advanced wound healing product for healing his ulcer. Due to the size of his ulcer, Theraskin application approval was requested from his insurance as it is medically necessary for salvaging his limb and healing his ulcer. He underwent 2 applications of Theraskin to this ulcer. Since application of Theraskin he had much improvement in epithelialization of his ulcer even though the overall size is not significantly changed there was progress. He is using Circaid compression wraps. Off-loading: The patient was instructed to avoid pressure and friction on the affected areas. Reposition every 2 hours at minimum. Avoid prolonged standing and/or dangling of legs. When seated, feet should be elevated at chest level. Frequent ambulation is encouraged. Encouraged lymphedema pump use. Diet: Patient encouraged to increase protein intake while taking caution to avoid high carbohydrate and/or sugar intake. Labs/cultures/imaging: Wound culture showed Pseudomonas, Escherichia hermannii, Raoultella planticola, Vancomycin Resist. E. faecalis, Alcaligenes faecalis ssp faeca, Staphylococcus cohnii urealyti and anaerobic bacteria on 06/15/24 and he completed on Levofloxacin and Augmentin. Wound culture taken today on right lateral ulcer which showed Raoultella planticola, Staph hemolyticus, staph epidermidis and morganella morganii but no anaeroobic bacteria, Levofloxacin and doxycyline were prescribed based on culture results. Labs ordered 10/19/2024. Vitamin D was low A1C 5.4% Wound culture from 12/07/24 was positive for Providencia stuartii, Vancomycin resistant E. Faecalis, Corynebacterium striatum and completed Augmentin orally. Follow-up: Return in 1 week for wound care follow up and have dressing changed by home health Mondays. Return sooner or report to the emergency room should symptoms worsen, or new symptoms arise. Note: [employer]form speech recognition senior art director software was used to create portions of this document. Sound-alike and misspelled words, as well as other senior art director errors may be contained in the documentation.
== END 2025-05-09 23:59 | disposition home or self-care (01) ==
LOC: WC 11:30
PROVIDERS: PCP Family Medicine; Referring Provider Family Medicine; Visit Provider Family Medicine
DX: I83.893 Varicose veins of bilateral lower extremities with other complications (principal); L97.922 Non-pressure chronic ulcer of unspecified part of left lower leg with fat layer exposed; L97.912 Non-pressure chronic ulcer of unspecified part of right lower leg with fat layer exposed; I87.2 Venous insufficiency (chronic) (peripheral); R60.9 Edema, unspecified; Z86.718 Personal history of other venous thrombosis and embolism; I89.0 Lymphedema, not elsewhere classified; E78.2 Mixed hyperlipidemia; I10 Essential (primary) hypertension
CPT/HCPCS: 11042; 11045

== ENCOUNTER 2025-05-13 16:18 | Outpatient (CLI) | payer MEDICARE, OTHER, SELFPAY ==
[2025-05-13 17:49] LABS: Prothrombin Time (Protime)PT. 22.9 SECONDS (11.7-14.9)
--- OUTSIDE RECORDS SUMMARY | 2025-05-13 22:56 | XMS RPT_ITS | CCD ---
Author Organization [facility] Care Team Providers Care Family Preservation Caseworker Name Role Phone Dr. Patricia Garcia Primary Care Provider Dr. Patricia Garica Referring Provider 1([facility])[phone] Dr. Heydi Kim Attending Provider 1([facility])[phone] Judy, Dr. Soliz Referring Provider Judy, Dr. Soliz Other Provider 1([facility])[phone] Patricia Garcia Primary Care Provider 1([facility])[phone] Heydi Kim Attending Provider 1([facility])[phone] Dr. Heydi Kim Referring Provider Judy, Dr. Soliz Other Provider 1([facility])[phone] Patricia Garcia Primary Care Provider 1([facility])[phone] Lenin Byers Attending Provider Dr. Dasia White Emergency Provider 1([facility])[phone] Satya Erazo Attending Provider 1([facility])[phone] Dr. Philip Whittaker Attending Provider 1([facility])[phone] Dr. Satya Erazo Admit Provider 1([facility])[phone] Satya Erazo Other Provider 1([facility])[phone] Jason Carranza Other Provider 1([facility])[phone] Wei Lucero Attending Provider 1([facility])[phone] Wei Lucero Other Provider Dr. Wei Allison Attending Provider 1([facility])[phone] Mimi Cobb Attending Provider 1([facility])[phone] Mimi Cobb Other Provider Dr. Patricia Garcia Referring Provider Dr. Patricia Garcia Primary Care Provider Jose, Dr. Gomez Referring Provider Dr. Lenin Byers Attending Provider Dr. Dasia White Emergency Provider Castro, Dr. Hernadez Attending Provider Dr. Philip Whittaker Attending Provider Castro, Dr. Hernadez Admit Provider Dr. Satya Erazo Other Provider Dr. Jason Carranza Other Provider Dr. Wei Lucero Attending Provider Dr. Wei Lucero Other Provider Dr. Wei Allison Attending Provider Dr. Jason Carranza Referring Provider Dr. Mimi Cobb Attending Provider Dr. Mimi Cobb Other Provider Dr. Mimi Cobb Referring Provider Jose RIDLEY, Dr. Gomze Primary Care Provider Jose RIDLEY, Dr. Gomez Attending Provider Dr. Patricia Garcia DO Referring Provider Eligio RANDHAWA, Dr. Pantera Peña Attending Provider Dr. Jason Ash DO Emergency Provider Dr. Inocencia Kruger DO Admit Provider Dr. Inocencia Kruger DO Other Provider Prudence RANDHAWA, Dr. Phelps Other Provider Kelley RANDHAWA, Dr. Eliane Otero Attending Provider Miguel RANDHAWA, Dr. Victoria Other Provider Unavailab angie Allison MD, Dr. Carvajal Other Provider [phone] Alexey RANDHAWA, Dr. Phelps Other Provider 1([facility])[phone] Slick RIDLEY, Dr. Pro Referring Provider 1([facility])[phone] Prudence RANDHAWA, Dr. Phelps Attending Provider 1([facility])[phone] Miguel RANDHAWA, Dr. Victoria Attending Provider Anabel Benson MD, Dr. Eliane Otero Other Provider 1([facility])[phone] Kelley RANDHAWA, Dr. Eliane Otero Referring Provider Keegan RANDHAWA, Dr. Carvajal Attending Provider 1([facility])5710 Ramos PA, Maria R Attending Provider 1([facility])-[phone] Shandra RANDHAWA, Dr. Petersen Attending Provider 1([facility])5700 Keegan RANDHAWA, Dr. Carvajal Referring Provider 1([facility])10 Keegan RANDHAWA, Dr. Carvajal Admit Provider 1([facility])-[phone] Jose RIDLEY, Dr. Gomez Primary Care Provider 1([facility])[phone] Jose RIDLEY, Dr. Gomez Attending Provider 1([facility])[phone] Jose DO, Dr. Gomez Referring Provider 1([facility])[phone] Ramos PA, Maria R Referring Provider 1([facility])-[phone] Jose RIDLEY, Dr. Gomez Referring Provider 1([facility])[phone] Jose DO, Dr. Gomez Primary Care Provider 1([facility])[phone] Jose DO, Dr. Gomez Attending Provider 1([facility])[phone] Peteys DO, Dr. Gomez Primary Care Provider 1([facility])[phone] Prudence RANDHAWA, Dr. Phelps Attending Provider 1([facility])[phone] Jose RIDLEY, Dr. Gomez Referring Provider 1([facility])[phone] Peteys DO, Dr. Gomez Attending Provider 1([facility])[phone] Jose DO, Dr. Gomez Primary Care Provider 1([facility])[phone] Jose DO, Dr. Gomez Referring Provider 1([facility])[phone] Ramos ANN, Maria R Attending Provider 1([facility])-[phone] Jose RIDLEY, Dr. Gomez Attending Provider 1([facility])[phone] Keegan RANDHAWADr. Carvajal Attending Provider 1([facility])[phone] Prudence, Lenin Consulting Unavailable Rivera, Achintya Attending Unavailable Malys, Patricia Primary Care Unavailable Slick, Inocencia Admitting Unavailable Slick, Inocencia Consulting Unavailable Rivera, Achintya Consulting Unavailable Siska, Lenin Attending Unavailable Slick, Inocencia Referring Unavailable Malys, Patricia Primary Care Unavailable [place], Wei Referring Unavailable Nicola Devi Attending Unavailable Beasley, Maria R Attending Unavailable Malys, Patricia Referring Unavailable Malys, Patricia Primary Care Unavailable Malys, Patricia Primary Care Unavailable Beasley, Maria R Attending Unavailable Malys, Patricia Referring Unavailable Malys, Patricia Primary Care Unavailable [place], Wei Attending Unavailable [place], Wei Referring Unavailable Keegan, Wei Consulting Unavailable [place], Wei Consulting Unavailable Keegan, Wei Referring Unavailable Keegan, Wei Admitting Unavailable Beasley, Maria R Attending Unavailable Malys, Patricia Primary Care Unavailable Slick, Inocencia Attending Unavailable Koram, Eliane Shanna Attending Unavailable Keegan, Wei Consulting Unavailable Koram, Eliane Shanna Consulting Unavailable Keegan, Wei Attending Unavailable Koram, Eliane Shanna Referring Unavailable Lenin Blackburn Consulting Unavailable Beasley, Maria R Attending Unavailable Malys, Patricia Attending Unavailable Malys, Patricia Referring Unavailable Malys, Patricia Primary Care Unavailable Malys, Patricia Attending Unavailable Malys, Patricia Referring Unavailable Malys, Patricia Primary Care Unavailable Malys, Patricia Attending Unavailable Malys, Patricia Referring Unavailable Malys, Patricia Primary Care Unavailable Malys, Patricia Attending Unavailable Malys, Patricia Referring Unavailable Malys, Patricia Primary Care Unavailable Malys, Patricia Attending Unavailable Malys, Patricia Referring Unavailable Malys, Patricia Primary Care Unavailable Malys, Patricia Attending Unavailable Malys, Patricia Referring Unavailable Malys, Patricia Primary Care Unavailable Malys, Patricia Attending Unavailable Malys, Patricia Referring Unavailable Malys, Patricia Primary Care Unavailable Malys, Patricia Primary Care Unavailable Sonido, Sergio Parrish Attending Unavailable SonidoSergio Referring Unavailable Malys, Patricia Attending Unavailable Malys, Patricia Primary Care Unavailable Malys, Patricia Referring Unavailable Malys, Patricia Attending Unavailable Malys, Patricia Primary Care Unavailable Malys, Patricia Referring Unavailable Malys, Patricia Attending Unavailable Malys, Patricia Primary Care Unavailable Malys, Patricia Referring Unavailable Malys, Patricia Attending Unavailable Malys, Patricia Referring Unavailable Malys, Patricia Primary Care Unavailable Malys, Patricia Attending Unavailable Malys, Patricia Primary Care Unavailable Malys, Patricia Referring Unavailable Beasley, Maria R Referring Unavailable Beasley, Maria R Attending Unavailable Malys, Patricia Primary Care Unavailable Malys, Patricia Primary Care Unavailable Malys, Patricia Attending Unavailable Malys, Patricia Referring Unavailable Malys, Patricai Primary Care Unavailable Malys, Patricia Attending Unavailable Malys, Patricia Referring Unavailable Slick, Inocencia Admitting Unavailable Siska, Lenin Consulting Unavailable Malys, Patricia Primary Care Unavailable Koram, Eliane Shanna Attending Unavailable Slick, Inocencia Consulting Unavailable Rivera, Achintya Consulting Unavailable [place], Wei Consulting Unavailable Alexey, Lenin Consulting Unavailable Malys, Patricia Attending Unavailable Malys, Patricia Primary Care Unavailable Malys, Patricia Referring Unavailable Malys, Patricia Attending Unavailable Malys, Patricia Referring Unavailable Malys, Patricia Primary Care Unavailable Malys, Patricia Referring Unavailable Malys, Patricia Primary Care Unavailable Malys, Patricia Attending Unavailable Malys, Patricia Primary Care Unavailable Malys, Patricia Attending Unavailable Malys, Patricia Referring Unavailable Malys, Patricia Primary Care Unavailable Keegan, Wei Attending Unavailable [place], Wei Referring Unavailable [place], Wei Admitting Unavailable Malys, Patricia Attending Unavailable Malys, Patricia Referring Unavailable Malys, Patricia Primary Care Unavailable Malys, Patricia Primary Care Unavailable [place], Wei Attending Unavailable Beasley, Maria R Referring Unavailable Allergies Allergy Classification Reported Allergen(s) Allergy Type Date of Onset Reaction(s) Facility (20 sources) Ciprofloxacin Drug Allergy 01-02-20 21 PAIN IN FEET [facility] (20 sources) Ciprofloxacin; Translations: [ciprofloxacin HCl] Drug Allergy 01-02-20 21 PAIN IN FEET, Rash [facility] (20 sources) Citalopram Drug Allergy 01-02-20 21 SUICIDAL THOUGHTS [facility] Comment on above: SUICIDAL THOUGHTS (20 sources) gabapentin Drug Allergy 01-02-20 21 EFFECTED VISION AND HEARING, mood change [facility] (8 sources) Hmg-Coa Reductase Inhibitors (Statins) Propensity to adverse reactions 12-31-19 21 SEVERE MUSCLE PAINS [facility] Work Phone: (20 sources) hydroCHLOROthiazide Drug Allergy 01-02-20 DIZZINESS [facility] Comment on above: dizziness (20 sources) levETIRAcetam Drug Allergy 01-02-20 Other [facility] (1 source) Citalopram Drug Allergy 04-14-20 [facility] Work Phone: [phone] (1 source) DULoxetine Drug Allergy 04-14-20 [facility] Work Phone: (1 source) Sulfamethoxazole / Trimethoprim Drug Allergy 04-14-20 [facility] Work Phone: [phone] (20 sources) traMADol; Translations: [tramadol] Drug Allergy 04-14-20 Seizure, [facility] (20 sources) DULoxetine Drug Allergy 05-25-20 [facility] (20 sources) Sulfamethoxazole Drug Allergy 05-25-20 [facility] (20 sources) Trimethoprim Drug Allergy 05-25-20 [facility] (20 sources) Ornuxsz-Awz-Fsd Reductase Inhibitor; Translations: [Olnfvnx-Ksd-Vmt Reductase Inhibitor] Propensity to adverse reactions 05-25-20 [facility] Comment on above: SEVERE MUSCLE PAIN (1 source) Ciprofloxacin Drug Allergy 01-30-20 [facility] (1 source) Citalopram Drug Allergy 01-30-20 [facility] (1 source) DULoxetine Drug Allergy 01-30-20 [facility] (1 source) gabapentin Drug Allergy 01-30-20 [facility] (1 source) hydroCHLOROthiazide Drug Allergy 01-30-20 [facility] (1 source) levETIRAcetam Drug Allergy 01-30-20 [facility] (1 source) Sulfamethoxazole Drug Allergy 01-30-20 [facility] (1 source) Trimethoprim Drug Allergy 01-30-20 [facility] Repository Medications Current Medications Medication Drug Class(es) Dates Sig (Normalized) Sig (Original) acetaminophen 500 mg oral tablet (4 sources) Start: 01-08-2025 take 2 tablets by mouth every eight hours as needed Acetaminophen 500 mg Tablet Active 1000 mg PO EVERY 8 HOURS as needed 0 0 January 08, 2025 12:00am aspirin 81 mg chewable tablet (20 sources) Platelet Aggregation Inhibitor, Nonsteroidal Anti-inflammatory Drug Start: 12-08-2022 take 1 tablet by mouth at breakfast Aspirin 81 mg Tablet,Chewable Active 81 mg PO WITH BREAKFAST 0 0 December 08, 2022 1:00am [facility] baclofen 10 mg oral tablet (20 sources) gamma-Aminobutyric Acid-ergic Agonist Start: 04-14-2022 take 1 tablet by mouth every eight hours Baclofen 10 mg tablet Active 10 mg PO Q8H April 14, 2022 1:46pm Muscle Spasm Start: 04-14-2022 take 10 mg by mouth four times daily Baclofen Active 10 MG PO .QID April 14, 2022 1:46pm Start: 01-01-2022 End: 04-14-2022 take 1 tablet by mouth three times daily as needed for muscle spasms Baclofen 10 mg Tablet Discontinued 10 mg PO THREE TIMES A DAY as needed for Muscle Spasm January 01, 2022 12:00am April 14, 2022 1:54pm cholecalciferol 0.125 mg oral tablet (10 sources) Vitamin D Start: 01-01-2022 take 1 tablet by mouth once daily Cholecalciferol (Vitamin D3) (Vitamin D3) 125 mcg (5,000 unit) Tablet Active 125 MCG PO DAILY January 01, 2022 12:00am ergocalciferol 1.25 mg oral capsule (20 sources) Provitamin D2 Compound Start: 07-02-2022 Ergocalciferol (Vitamin D2) (Vitamin D2) 1,250 mcg (50,000 unit) Capsule Active 1250 ug PO WE July 02, 2022 12:00am vitamin furosemide 20 mg oral tablet (20 sources) Loop Diuretic Start: 12-11-2024 take 1 tablet by mouth once daily Furosemide 20 mg tablet Active 20 mg PO DAILY 30 2 December 11, 2024 1:00am diuretic Start: 07-05-2022 End: 12-11-2024 take 3 tablets by mouth at lunch Furosemide (Lasix) 20 mg Tablet Discontinued 60 mg PO WITH LUNCH July 05, 2022 12:00am December 11, 2024 5:26pm Start: 07-05-2022 take 1 tablet by mouth at [facility] Furosemide (Lasix) 20 mg Tablet Active 20 MG PO WITH LUNCH July 05, 2022 12:00am Start: 07-05-2022 End: 12-11-2024 Furosemide (Lasix) 40 mg Tab let Discontinued 60 mg PO WITH BREAKFAST July 05, 2022 12:00am December 11, 2024 5:40pm water pill Start: 07-05-2022 End: 12-11-2024 Furosemide (Lasix) 40 mg Tab let Discontinued 60 mg PO WITH BREAKFAST July 05, 2022 12:00am December 11, 2024 5:40pm Start: 02-07-2019 End: 04-14-2022 take 1 tablet by mouth at lunch Furosemide (Lasix) 20 mg Tablet Discontinued 20 mg PO WITH LUNCH January 01, 2022 12:00am April 14, 2022 1:53pm niacin 50 mg oral tablet (20 sources) Nicotinic Acid Start: 04-14-2022 Niacin 50 mg t ablet Active 25 mg PO DAILY April 14, 2022 12:00am supplement Start: 04-14-2022 take 25 mg by mouth once daily Niacin Active 25 MG PO DAILY April 14, 2022 12:00am [place]-3 Fatty Acids (Fish Oil) 500 MG capsule (20 sources) Start: 08-27-2015 take 1 capsule by mouth once daily [place]-3 Fatty Acids (Fish Oil) 500 MG capsule Active 1000 MG PO DAILY August 27, 2015 2:42pm Start: 08-27-2015 take 1 capsule by [facility] three times daily [place]-3 Fatty Acids (Fish Oil) 500 MG capsule Active 1000 mg PO THREE TIMES A DAY August 27, 2015 1:00am supplement Start: 08-27-2015 take 1 capsule by [facility] three times daily [place]-3 Fatty Acids (Fish Oil) 500 MG capsule Active 1000 mg PO THREE TIMES A DAY August 27, 2015 1:00am Start: 08-27-2015 [facility] [place]-3 Fatty Acids (Fish Oil) 500 MG capsule Active 1000 MG PO DAILY August 27, 2015 12:00am Start: 08-27-2015 take 1 capsule by [facility] once daily [place]-3 Fatty Acids (Fish Oil) 500 MG capsule Active 1000 MG PO DAILY August 27, 2015 1:00am phenytoin sodium 100 mg extended release oral capsule (20 sources) Anti-epileptic Agent Start: 07-02-2022 take 1 capsule by mouth at bedtime Phenytoin Sodium Extended (Dilantin Extended) 100 mg Capsule Active 100 mg PO AT BEDTIME July 02, 2022 12:00am seizures Start: 04-14-2022 End: 01-29-2025 take 2 capsules by mouth once daily Phenytoin Sodium Extended (Dilantin Extended) 100 mg capsule Discontinued 200 mg PO DAILY April 14, 2022 12:00am January 29, 2025 10:44am seizures Start: 04-14-2022 take 1 capsule [facility] daily Phenytoin Sodium Extended (Dilantin Extended) 100 mg capsule Active 100 MG PO TWICE A DAY April 14, 2022 12:00am Start: 08-29-2014 End: 04-14-2022 take 2 capsules by mouth twice daily Phenytoin Sodium Extended 100 MG capsule Discontinued 200 mg PO TWICE A DAY August 29, 2014 1:00am April 14, 2022 1:54pm seizures Start: 08-29-2014 End: 04-14-2022 take 200 mg by mouth twice daily Phenytoin Sodium Exte nded Discontinued 200 MG PO TWICE A DAY August 29, 2014 1:00am April 14, 2022 1:54pm pregabalin 75 mg oral capsule (20 sources) Start: 04-14-2022 take 2 capsules by mouth three times daily Pregabalin (Lyrica) 75 mg capsule Active 150 mg PO THREE TIMES A DAY April 14, 2022 1:48pm pain control Start: 04-14-2022 take 1 capsule by [facility] three times daily Pregabalin (Lyrica) 75 mg capsule Active 75 MG PO THREE TIMES A DAY April 14, 2022 1:48pm Start: 01-01-2022 End: 04-14-2022 take 1 capsule by mouth twice daily Pregabalin (Lyrica) 75 mg Capsule Discontinued 75 mg PO TWICE A DAY January 01, 2022 12:00am April 14, 2022 1:54pm traMADol hydrochloride 50 mg oral tablet (20 sources) Opioid Agonist Start: 12-07-2024 Tramadol 50 mg tablet Active 50 mg PO Q8H December 07, 2024 1:00am pain takes meds 06,14,22, then also at 2am Start: 02-07-2019 End: 04-14-2022 Tramadol 50 MG tablet Discon tinued 1 {tbl} PO EVERY 8 HOURS NEEDED as needed for Pain February 07, 2019 12:00am April 14, 2022 1:54pm Start: 02-07-2019 End: 04-14-2022 take 1 tablet by mouth every eight hours as needed Tramadol Discontinued 1 TABLET PO EVERY 8 HOURS NEEDED February 07, 2019 12:00am April 14, 2022 1:54pm Turmeric Root Extract (20 sources) Start: 04-14-2022 take 100 mg by mouth twice daily Turmeric Root Extract Active 100 MG PO TWICE A DAY April 14, 2022 12:48pm Start: 04-14-2022 take 100 mg by mouth twice daily Turmeric Root Extract Active 100 MG PO TWICE A DAY April 14, 2022 1:48pm Start: 09-16-2017 take 100 mg by mouth once galina y Turmeric Root Extract Active 100 MG PO DAILY September 16, 2017 3:31pm Start: 09-16-2017 End: 04-14-2022 take 1 capsule by mouth once daily Turmeric Root Extract 500 MG capsule Discontinued 100 mg PO DAILY September 16, 2017 1:00am April 14, 2022 1:54pm supplement Start: 09-16-2017 End: 04-14-2022 take 1 capsule by mouth once daily Turmeric Root Extract 500 MG capsule Discontinued 100 mg PO DAILY September 16, 2017 1:00am April 14, 2022 1:54pm Start: 09-16-2017 End: 04-14-2022 take 100 mg by mouth once daily Turmeric Root Extract Discontinued 100 MG PO DAILY September 16, 2017 12:00am April 14, 2022 12:54pm Start: 09-16-2017 End: 04-14-2022 take 100 mg by mouth once daily Turmeric Root Extract Discontinued 100 MG PO DAILY September 16, 2017 1:00am April 14, 2022 1:54pm Start: 09-16-2017 take 100 mg by mouth once galina y Turmeric Root Extract Active 100 MG PO DAILY September 16, 2017 1:00am Turmeric Root Extract 500 mg capsule (5 sources) Start: 04-14-2022 take 1 capsule by mouth once daily Turmeric Root Extract 500 mg capsule Active 1000 mg PO DAILY April 14, 2022 1:48pm supplement Start: 04-14-2022 take 1 capsule by mo ut once daily Turmeric Root Extract 500 mg capsule Active 1000 mg PO DAILY April 14, 2022 1:48pm ubidecarenone 100 mg oral ca psule (20 sources) Start: 07-02-2022 Coenzyme Q10 ( Coq-10) 100 mg Capsule Active 100 mg PO DAILY July 02, 2022 12:00am vitamin Start: 07-02-2022 Coenzyme Q10 ( Coq-10) 100 mg Capsule Active 100 MG PO EVERY OTHER DAY July 02, 2022 12:00am Start: 08-27-2015 End: 01-01-2022 Coenzyme Q10 (Co Q-10) 100 M G capsule Discontinued 100 mg PO DAILY August 27, 2015 1:00am January 01, 2022 10:26am supplement warfarin sodium 3 mg oral tablet (20 sources) Vitamin K Antagonist Start: 12-07-2024 Warfarin 3 mg tablet Active 3 mg PO MOTUWETHFR December 07, 2024 1:00am blood thinner Start: 12-07-2024 Warfarin 5 mg tablet Active 4 mg PO SUSA December 07, 2024 1:00am blood thinner Start: 04-14-2022 End: 12-07-2024 take 1 tablet by mouth once daily Warfarin 5 mg tablet Discontinued 5 mg PO DAILY 30 0 December 08, 2022 1:00am December 07, 2024 12:03pm Start: 04-14-2022 take 4 mg by mouth once Warfar in (Jantoven) 5 mg tablet Active 4 MG PO every Tuesday, , , Sat April 14, 2022 12:49pm Start: 04-14-2022 End: 12-08-2022 take 5 mg by mouth once daily Warfarin (Jantoven) 4 mg tablet Discontinued 5 mg PO DAILY 30 0 December 08, 2022 2:44pm December 08, 2022 5:28pm Blood thinner Start: 03-20-2017 End: 04-14-2022 Warfarin (Coumadin (Pbkc)) 5 MG tablet Discontinued 3 mg PO TUTHSA March 20, 2017 12:00am April 14, 2022 1:54pm blood thinner Start: 08-29-2014 End: 08-27-2015 Warfarin (Jantoven) 1 MG tab let Discontinued 3.5 mg PO SUMOWEFR August 29, 2014 1:00am August 27, 2015 2:34pm Start: 08-29-2014 End: 04-14-2022 Warfarin (Coumadin (Pbkc)) 4 MG tablet Discontinued 4 mg PO MOWEFR August 27, 2015 1:00am April 14, 2022 1:54pm Blood thinner Completed/Discontinued Medications Medication Drug Class(es) Dates Sig (Normalized) Sig (Original) acetaminophen 325 mg / HYDROcodone bitartrate 5 mg oral tablet (20 sources) Opioid Agonist Start: 01-01-2021 End: 01-04-2021 Hydrocodone-Acetami nophen 1 TABLET tablet Discontinued 1 {tbl} PO EVERY 6 HOURS NEEDED as needed for Pain 10 3 0 January 01, 2021 January 03, 2021 12:00am January 04, 2021 12:03am Muscle spasm Other muscle spasm Start: 01-01-2021 End: 01-04-2021 take 1 tablet by mouth every six hours as needed Hydrocodone-Acetaminophen Discontinued 1 TABLET PO EVERY 6 HOURS NEEDED 10 3 January 01, 2021 January 04, 2021 12:03am Start: 08-30-2014 End: 08-27-2015 Hydrocodone-Acetaminophen 1 TABLET tablet Discontinued 1 - 2 {tbl} PO EVERY 6 HOURS NEEDED as needed for Moderate-severe pain 60 0 August 30, 2014 1:00am August 27, 2015 2:36pm Start: 08-30-2014 End: 08-27-2015 take 1 tablet by mouth every six hours as needed Hydrocodone-Acetaminophen Discontinued 1 - 2 TABLET PO EVERY 6 HOURS NEEDED 60 August 30, 2014 1:00am August 27, 2015 2:36pm Start: 07-01-2014 End: 08-30-2014 Hydrocodone-Acetaminophen 1 TABLET tablet Discontinued 1 {tbl} PO EVERY 4 HOURS NEEDED as needed for Pain 10 0 July 01, 2014 12:00am August 30, 2014 3:43pm Start: 07-01-2014 End: 08-30-2014 take 1 tablet by mouth every four hours as needed Hydrocodone-Acetaminophen Discontinued 1 TABLET PO EVERY 4 HOURS NEEDED July 01, 2014 12:00am August 30, 2014 3:43pm amoxicillin 875 mg / clavulanate 125 mg oral tablet (5 sources) Penicillin-class Antibacterial Start: 12-12-2024 End: 12-21-2024 Amoxicillin-Pot Clavulanate 875-125 mg tablet Discontinued 1 {tbl} PO TWICE A DAY 10 0 December 12, 2024 1:00am December 21, 2024 12:44pm cloNIDine hydrochloride 0.1 mg oral tablet (20 sources) Central alpha-2 Adrenergic Agonist Start: 12-07-2024 End: 12-11-2024 take 1 tablet by mouth every twelve hours Clonidine Hcl 0.1 mg tablet Discontinued 0.1 mg PO Q12H December 07, 2024 1:00am December 11, 2024 5:26pm Start: 02-07-2019 End: 12-08-2022 Clonidine Hcl 0.1 MG tablet Discontinued 1 {tbl} PO TWICE A DAY February 07, 2019 12:00am December 08, 2022 2:37pm Blood pressure\ cyclobenzaprine hydrochloride 10 mg oral tablet (20 sources) Muscle Relaxant Start: 08-30-2014 End: 08-27-2015 take 5 mg by mouth three times daily as needed for muscle spasms Cyclobenzaprine 10 MG tablet Discontinued 5 mg PO 3 TIMES DAILY NEEDED as needed for muscle spasms 30 August 30, 2014 3:40pm August 27, 2015 2:38pm Start: 08-30-2014 End: 08-27-2015 take 5 mg by mouth three times daily as needed Cyclobenzaprine Discontinued 5 MG PO 3 TIMES DAILY NEEDED August 30, 2014 3:40pm August 27, 2015 2:38pm diazePAM 5 mg oral tablet (20 sources) Benzodiazepine Start: 01-01-2021 End: 04-14-2022 take 1 tablet by mouth every eight hours as needed for muscle spasms Diazepam 5 MG tablet Discontinued 5 mg PO EVERY 8 HOURS as needed for Muscle Spasm January 01, 2021 12:00am April 14, 2022 1:53pm docusate sodium 100 mg oral capsule (20 sources) Start: 08-30-2014 End: 08-27-2015 take 2 capsules by mouth twice daily as needed for constipation Docusate Sodium (Dok) 100 MG capsule Discontinued 200 mg PO TWICE DAILY NEEDED as needed for Constipation 60 August 30, 2014 1:00am August 27, 2015 2:38pm DULoxetine 30 mg delayed release oral capsule (20 sources) Serotonin and Norepinephrine Reuptake Inhibitor Start: 08-30-2014 End: 08-27-2015 take 1 capsule by mouth once daily Duloxetine 30 MG capsule Discontinued 30 mg PO DAILY 30 August 30, 2014 1:00am August 27, 2015 2:38pm 0.8 ml enoxaparin sodium 150 mg/ml prefilled syringe (4 sources) Low Molecular Weight Heparin Start: 01-08-2025 End: 01-29-2025 Enoxaparin 120 mg/0.8 mL Syringe Discontinued 120 mg SC EVERY 12 HOURS 11.2 7 0 January 08, 2025 12:00am January 29, 2025 10:42am hydroCHLOROthiazide 25 mg oral tablet (20 sources) Thiazide Diuretic Start: 08-29-2014 End: 08-30-2014 Hydrochlorothiazide 25 MG tablet Discontinued 12.5 mg PO DAILY August 29, 2014 1:00am August 30, 2014 3:43pm Start: 08-29-2014 End: 08-30-2014 take 12.5 mg by mouth once daily Hydrochlorothiazide Discontinued 12.5 MG PO DAILY August 29, 2014 1:00am August 30, 2014 3:43pm lisinopril 5 mg oral tablet (20 sources) Angiotensin Converting Enzyme Inhibitor Start: 12-08-2022 End: 12-07-2024 take 2 tablets by mouth once daily Lisinopril 5 MG tablet Discontinued 10 mg PO DAILY December 08, 2022 2:44pm December 07, 2024 11:59am blood pressure Start: 12-08-2022 take 10 mg by mouth once daily Lisinopril Active 10 MG PO DAILY December 08, 2022 2:44pm Start: 08-27-2015 End: 12-08-2022 take 2 tablets by mouth twice daily Lisinopril 5 MG tablet Discontinued 10 mg PO TWICE A DAY August 27, 2015 2:37pm December 08, 2022 2:44pm blood pressure Start: 08-27-2015 End: 12-08-2022 take 10 mg by mouth twice daily Lisinopril Discontinue d 10 MG PO TWICE A DAY August 27, 2015 2:37pm December 08, 2022 2:44pm Start: 08-30-2014 End: 08-27-2015 take 1 tablet by mouth once daily Lisinopril 5 MG tablet Discontinued 5 mg PO DAILY 30 0 August 30, 2014 1:00am August 27, 2015 2:38pm Start: 08-29-2014 End: 08-30-2014 take 1 tablet by mouth twice daily Lisinopril 5 MG tablet Discontinued 5 mg PO TWICE A DAY August 29, 2014 1:00am August 30, 2014 3:43pm meclizine hydrochloride 25 mg oral tablet (20 sources) Antiemetic Start: 08-30-2014 End: 08-27-2015 take 1 tablet by mouth four times daily as needed Meclizine 25 MG tablet Discontinued 25 mg PO 4 TIMES DAILY NEEDED as needed for Vertigo 20 0 August 30, 2014 3:40pm August 27, 2015 2:35pm methadone hydrochloride 10 mg oral tablet (20 sources) Opioid Agonist Start: 04-14-2022 End: 12-07-2024 take 1 tablet by mouth every twelve hours Methadone 10 mg tablet Discontinued 10 mg PO Q12H April 14, 2022 1:47pm December 07, 2024 12:00pm Check with primary doctor On Hold: Resume on 12/22/22. Will defer to outpatient provider for dose and timing of resumption of methadone Start: 01-01-2022 End: 04-14-2022 take 1 tablet by mouth once daily Methadone 10 mg Tablet Discontinued 10 mg PO DAILY January 01, 2022 12:00am April 14, 2022 1:54pm oxyCODONE hydrochloride 5 mg oral tablet (20 sources) Opioid Agonist Start: 12-08-2022 End: 01-29-2025 take 1 tablet by mouth every six hours as needed for pain Oxycodone 5 mg Tablet Discontinued 5 mg PO EVERY 6 HOURS NEEDED as needed for Pain Score 4-10 20 3 0 December 08, 2022 January 29, 2025 10:42am Cellulitis and abscess of left lower extremity Chronic pain Cellulitis of left lower limb Cutaneous abscess of left lower limb Other chronic pain Start: 04-14-2022 take 2.5 mg by mouth once galina y Oxycodone Active 2.5 MG PO DAILY April 14, 2022 12:00am psyllium 3400 mg powder for oral suspension (20 sources) Start: 08-30-2014 End: 08-27-2015 take 1 dose by mouth once daily Psyllium Husk (Metamucil Fiber (Aspartame)) 1 PACKET Packet Discontinued 1 NMA PO DAILY 30 0 August 30, 2014 1:00am August 27, 2015 2:35pm Start: 08-30-2014 End: 08-27-2015 take 1 dose by mouth once daily Psyllium Husk (Aspartame) (Metamucil Fiber Singles) 1 PACKET Packet Discontinued 1 PACKET PO DAILY August 30, 2014 1:00am August 27, 2015 2:35pm temazepam 15 mg oral capsule (20 sources) Benzodiazepine Start: 08-30-2014 End: 08-27-2015 take 1 capsule by mouth at bedtime as needed Temazepam 15 MG capsule Discontinued 15 mg PO AT BEDTIME NEEDED as needed for insomnia 30 August 30, 2014 1:00am August 27, 2015 2:34pm Problems Active Problems Problem Classification Problem Date Documented Da te Episodic/Chronic Chronic ulcer of skin (20 sources) Ulcer of lower extremity; Translations: [Non-pressure chronic ulcer of unspecified part of left lower leg with fat layer exposed] Onset: 5 Chronic Disorders of lipid metabolism (20 sources) Hyperlipidemia; Translations: [Hyperlipidemia, unspecified] Onset: 5 02-07-2019 Chronic E Codes: Fall (20 sources) Fall; Translations: [Unspecified fall, initial encounter] 12-31-2020 Episodic Epilepsy; convulsions (20 sources) Seizure disorder; Translations: [Epilepsy, unspecified, not intractable, without status epilepticus] Chronic Essential hypertension (20 sources) Hypertensive disorder; Translations: [Essential (primary) hypertension] Onset: Chronic Hyperplasia of prostate (20 sources) Benign prostatic hyperplasia; Translations: [Benign prostatic hyperplasia without lower urinary tract symptoms] 02-07-2019 Chronic Immunizations and screening for infectious disease (20 sources) Culture positive for methicillin resistant Staphylococcus aureus; Translations: [Carrier or suspected carrier of Methicillin resistant Staphylococcus aureus] 02-07-2019 Episodic Nutritional deficiencies (20 sources) Deficiency of macronutrients; Translations: [Unspecified severe protein-calorie malnutrition] Onset: 5 12-01-2022 Chronic Open wounds of extremities (20 sources) Injury of lower extremity; Translations: [Unspecified open wound, unspecified lower leg, initial encounter] 02-08-2019 Episodic Open wounds of head; neck; and trunk (20 sources) Laceration of forehead; Translations: [Laceration without foreign body of other part of head, initial encounter] 11-30-2022 Episodic Other aftercare (20 sources) Long-term current use of anticoagulant; Translations: [FPC (current) use of anticoagulants] 04-14-2022 Episodic Other aftercare (10 sources) 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; Translations: [Long-term (current) use of anticoagulants] Episodic Other aftercare (4 sources) Surgical follow-up; Translations: [Encounter for surgical aftercare following surgery on the circulatory system] 01-29-2025 Episodic Other aftercare (1 source) Encounter for surgical aftercare following surgery on the circulatory system; Translations: [Encounter for surgical aftercare following surgery on the circulatory system] Onset: 5 Episodic Other and unspecified benign neoplasm (20 sources) History of polyp of colon; Translations: [Personal history of colonic polyps] 04-14-2022 Episodic Other and unspecified benign neoplasm (10 sources) Personal history of colonic polyps; Translations: [Personal history of colonic polyps] Episodic Other circulatory disease (20 sources) History of cerebrovascular accident; Translations: [Personal history of transient ischemic attack (TIA), and cerebral infarction without residual deficits] 02-07-2019 Episodic Other circulatory disease (20 sources) Personal history of transient ischemic attack (TIA), and cerebral infarction without residual deficits; Translations: [Personal history of transient ischemic attack (TIA), and cerebral infarction without residual deficits] Onset: 5 Episodic Other connective tissue disease (20 sources) Spasm; Translations: [Other muscle spasm] 01-02-2021 Episodic Other connective tissue disease (2 sources) Pain in left leg; Translations: [Pain in left leg] Onset: 5 Episodic Other diseases of veins and lymphatics (20 sources) Lymphedema; Translations: [Lymphedema, not elsewhere classified] 02-07-2019 Chronic Other diseases of veins and lymphatics (20 sources) Lymphedema, not elsewhere classified; Translations: [Other lymphedema] Onset: 5 Chronic Other diseases of veins and lymphatics (20 sources) Stasis dermatitis; Translations: [Venous insufficiency (chronic) (peripheral)] 02-08-2019 Episodic Other diseases of veins and lymphatics (20 sources) Vascular insufficiency; Translations: [Venous insufficiency (chronic) (peripheral)] 02-07-2019 Episodic Other diseases of veins and lymphatics (20 sources) Venous insufficiency (chronic) (peripheral); Translations: [Venous (peripheral) insufficiency, unspecified] Onset: 5 Episodic Other diseases of veins and lymphatics (20 sources) Peripheral venous insufficiency; Translations: [Venous insufficiency (chronic) (peripheral)] 11-30-2022 Episodic Other diseases of veins and lymphatics (16 sources) Disorder of vein of lower extremity; Translations: [Venous insufficiency (chronic) (peripheral)] 02-08-2019 Episodic Other nervous system disorders (20 sources) Neuropathy; Translations: [Polyneuropathy, unspecified] 12-31-2020 Chronic Other nervous system disorders (20 sources) Chronic pain syndrome; Translations: [Chronic pain syndrome] 02-07-2019 Chronic Other nervous system disorders (20 sources) Chronic pain syndrome; Translations: [Chronic pain syndrome] Chronic Other nervous system disorders (20 sources) Chronic pain; Translations: [Other chronic pain] 12-01-2022 Chronic Other nervous system disorders (6 sources) Other chronic pain; Translations: [Other chronic pain] 11-30-2022 Chronic Other nervous system disorders (20 sources) Central nervous system deficit; Translations: [Other disorders of nervous system] 02-07-2019 Episodic Other nervous system disorders (7 sources) Other disorders of nervous system; Translations: [Unspecified disorders of nervous system] Episodic Other non-traumatic joint disorders (2 sources) Pain in left ankle and joints of left foot; Translations: [Pain in left ankle and joints of left foot] Onset: 5 Episodic Other nutritional; endocrine; and metabolic disorders (20 sources) Morbid obesity; Translations: [Morbid (severe) obesity due to excess calories] 11-26-2022 Chronic Phlebitis; thrombophlebitis and thromboembolism (18 sources) Acquired occlusion of inferior vena cava; Translations: [Acute embolism and thrombosis of inferior vena cava] Onset: 5 12-23-2024 Chronic Phlebitis; thrombophlebitis and thromboembolism (20 sources) H/O: Deep vein thrombosis; Translations: [Personal history of other venous thrombosis and embolism] Onset: 5 Episodic Pulmonary heart disease (20 sources) H/O: pulmonary embolus; Translations: [Personal history of pulmonary embolism] Episodic Residual codes; unclassified (2 sources) Swelling - edema - symptom; Translations: [Edema, unspecified] Episodic Residual codes; unclassified (20 sources) Edema; Translations: [Edema, unspecified] 01-08-2022 Episodic Residual codes; unclassified (20 sources) Edema, unspecified; Translations: [Edema] Onset: 5 Episodic Residual codes; unclassified (20 sources) Family history of cancer of colon; Translations: [Family history of malignant neoplasm of digestive organs] 04-14-2022 Episodic Residual codes; unclassified (10 sources) Family history of malignant neoplasm of digestive organs; Translations: [Family history of malignant neoplasm of gastrointestinal tract] Episodic Spondylosis; intervertebral disc disorders; other back problems (1 source) Spinal enthesopathy, site unspecified; Translations: [Spinal enthesopathy, site unspecified] Onset: 4 Chronic Spondylosis; intervertebral disc disorders; other back problems (5 sources) Radiculopathy, lumbar region; Translations: [Pain in thoracic spine] Onset: 5 Episodic Superficial injury; contusion (16 sources) Contusion of trunk; Translations: [Contusion of abdominal wall, initial encounter] 11-30-2022 Episodic Syncope (20 sources) Vasovagal symptom; Translations: [Syncope and collapse] 02-07-2019 Episodic Unclassified (20 sources) Chronic L sided weakness Unclassified (1 source) Low back pain, unspecified; Translations: [Low back pain, unspecified] Onset: 4 Varicose veins of lower extremity (20 sources) Varicose ulcer of lower extremity; Translations: [Varicose veins of right lower extremity with ulcer of unspecified site] Onset: 5 Episodic Past or Other Problems Problem Classification Problem Date Documented Da te Episodic/Chronic Abdominal pain (2 sources) Unspecified abdominal pain; Translations: [Unspecified abdominal pain] Onset: 11-09-2024 Episodic Diabetes mellitus without complication (2 sources) Impaired fasting glucose; Translations: [Impaired fasting glucose] Onset: 11-09-2024 Episodic Genitourinary symptoms and ill-defined conditions (2 sources) Dysuria; Translations: [Dysuria] Onset: 11-09-2024 Episodic Other aftercare (2 sources) Encounter for therapeutic drug level monitoring; Translations: [Encounter for therapeutic drug level monitoring] Onset: 11-09-2024 Episodic Other connective tissue disease (1 source) Pain in left foot; Translations: [Pain in left foot] Onset: 06-22-2024 Episodic Other screening for suspected conditions (not mental disorders or infectious disease) (1 source) Elevated prostate specific antigen [PSA]; Translations: [Elevated prostate specific antigen [PSA]] Onset: 06-14-2024 Episodic Residual codes; unclassified (1 source) Localized edema; Translations: [Localized edema] Onset: 02-08-2025 Episodic Skin and subcutaneous tissue infections (20 sources) Cellulitis and abscess of lower limb; Translations: [Cellulitis of unspecified part of limb] Onset: 01-07-2025 11-30-2022 Episodic Results Test Name Value Interpretation Reference Range Facility Abd Aortic/IVC Duplex scanon 02-18-2025 Abd Aortic/IVC Duplex scan Normal [facility] Abdominal aortic duplex scan reportOrdered By: Wei Allison on 02-18-2025 US.doppler Thoracic and abdominal aorta [facility] [address] [place] [address] Abd Aortic/IVC Duplex scan 02/18/25 0909 MR#: [id number] Acct: [id number] Name: ESTEBAN URBINA Rep #:[id number] : 1955 69 From: Wei Urena Attending Dr: MARISSA Vivar Stat us: REG CLI Ordering Dr: Maria R Beasley Date: Location: [facility] Sex: M C Admitted: Reason For Study Reason For Study: S/P IVC CIV stent Inferior Vena Cava Proximal inferior vena cava measures 1.59 x 2.06 cm. in the cross-sectional axis. Proximal inferior vena cava measures 1.65 cm. in the longitudinal axis. Mid inferior vena cava measures 1.30 x 1.58 cm. in the cross-sectional axis. Mid inferior vena cava measures 1.55 cm. in the longitudinal axis. Distal inferior vena cava measures 1.22 cm. in the longitudinal axis. Unable to obtain distal IVC transverse angle due to body habitus / bowel gas. Stent noted at distal vessel. The inferior vena cava has spontaneous, phasic flow throughout. Left Common Iliac Vein Left common iliac vein measures 1.21 x 1.10 cm. in the cross-sectional axis. Left common iliac vein measures 1.4 cm. in the longitudinal axis. The left common iliac vein has spontaneous, phasic flow throughout. Stent Noted. Right Common Iliac Vein Right common iliac vein measures 1.32 x 1.19 cm. in the cross-sectional axis. Right common iliac vein measures 1.36 cm. in the longitudinal axis. The right common iliac vein has spontaneous, phasic flow throughout. Stent noted. Procedure Aorta IVC Iliac vasculature or bypass grafts 82054. The exam was diagnostic. Exam performed in department. VL/Abd Aortic/IVC Duplex scan Interpretation Summary Patent inferior vena cava and bilateral iliac vein stents with normal venous flow pattern. Ordering Physician: Maria R Beasley Referring Physician: Patricia Garcia Performed By: Gary Soto, T 02/18/25 1201 Date _ Wei Allison MD CC: MARISSA Vivar; Dr. Patricia Garcia, ~ Date Dictated: 02/18/2509 Date Transcribed: 02/18/25 120 Metal Sorter: Signed [facility] Work Phone: MR/BMS.[email or web address] 01-29-2025 MR/BMS.BVS Normal [facility] Absolute lymphocyte countOrd ered By: Wei Allison on 01-08-2025 Lymphocytes Auto (Unsp spec) [#/Vol] 1.60 10*3/uL 0.83-4.51 [facility] Absolute neutrophil countOrd ered By: Wei Allison on 01-08-2025 Neutrophils (Bld) [#/Vol] 8.9 10*3/uL High 2.0-7.7 [facility] Activated partial thrombopla stin time (aPTT) in platelet poor plasma by coagulation aOrdered By: Wei Allison on 01-08-2025 aPTT Coag (PPP) [Time] 49.1 s High 24.1-36.2 [facility] Anion gap in Serum or Plasma Ordered By: Wei Allison on 01-08-2025 Anion gap [Moles/Vol] 11 mmol/L 5- [facility] Automated lymphocyte count a s percentage of total leukocytesOrdered By: Wei Allison on 01-08-2025 Lymphocytes/100 WBC Auto (Unsp spec) 13.6 % Low 19-41 [facility] BUN/creatinine ratioOrdered By: Wei Allison on 01-08-2025 Urea nitrogen/Creatinine [Mass ratio] 10.6 mg/mg 10- [facility] Basic Metabolic Profile (BMP )on 01-08-2025 BUN/CRE 10.6 RATIO Normal - [facility] Comment on above: Performed By: #### L 300.4310, L500.2500, L100.0100, L300.3900 ####[facility] [address] [place], [address] ECRCL 104.48 ml/min Normal 50-250 [facility] Comment on above: Performed By: #### L 300.4310, L500.2500, L100.0100, L300.3900 ####[facility] [address] [place], [address] GAP 11 Normal - [facility] Comment on above: Performed By: #### L 300.4310, L500.2500, L100.0100, L300.3900 ####[facility] [address] [place], [address] Potassium [Moles/Vol] 3.8 mmol/L Normal 3.3-5.1 [facility] Comment on above: Performed By: #### L 300.4310, L500.2500, L100.0100, L300.3900 ####[facility] [address] [place], [address] Basophil percentageOrdered B y: Wei Allison on 01-08-2025 Basophils/100 WBC (Bld) 0.3 % 0-1 [facility] CBC W/Diff, Automatedon Absolute Lymph 1.60 X10 3/uL Normal 0.83-4.51 [facility] Comment on above: Performed By: #### L 300.4310, L500.2500, L100.0100, L300.3900 ####[facility] [address] [place], [address] Absolute Neut 8.9 X10 3/uL High 2.0-7.7 [facility] Comment on above: Performed By: #### L 300.4310, L500.2500, L100.0100, L300.3900 ####[facility] [address] [place], [address] Basophils/100 WBC (Bld) 0.3 % Normal 0-1 [facility] Comment on above: Performed By: #### L 300.4310, L500.2500, L100.0100, L300.3900 ####[facility] [address] [place], [address] Eosinophils/100 WBC (Bld) 1.0 % Normal 0-5 [facility] Comment on above: Performed By: #### L 300.4310, L500.2500, L100.0100, L300.3900 ####[facility] [address] [place], [address] Erythrocyte distribution width (RBC) [Ratio] 15.7 % High 11.6-14.6 [facility] Comment on above: Performed By: #### L 300.4310, L500.2500, L100.0100, L300.3900 ####[facility] [address] [place], [address] Hematocrit (Bld) [Volume fraction] 38.0 % Low 40-54 [facility] Comment on above: Performed By: #### L 300.4310, L500.2500, L100.0100, L300.3900 ####[facility] [address] [place], [address] Hemoglobin (Bld) [Mass/Vol] 12.5 g/dL Low 13.0-16.5 [facility] Comment on above: Performed By: #### L 300.4310, L500.2500, L100.0100, L300.3900 ####[facility] [address] [place], [address] IG% 0.500 Normal 0.0-0.9 [facility] Comment on above: Result Comment: IG% - Immature Granulocytes (promyelocytes, myelocytes andmetamyelocytes) > 1% indicates that a LEFT SHIFT is Present. Performed By: #### L 300.4310, L500.2500, L100.0100, L300.3900 ####[facility] [address] [place], [address] Lymphocytes/100 WBC (Bld) 13.6 % Low 19-41 [facility] Comment on above: Performed By: #### L 300.4310, L500.2500, L100.0100, L300.3900 ####[facility] [address] [place], [address] MCH (RBC) [Entitic mass] 31.0 pg Normal 27.0-32.0 [facility] Comment on above: Performed By: #### L 300.4310, L500.2500, L100.0100, L300.3900 ####[facility] [address] [place], [address] MCHC (RBC) [Mass/Vol] 32.9 g/dL Normal 32-36 [facility] Comment on above: Performed By: #### L 300.4310, L500.2500, L100.0100, L300.3900 ####[facility] [address] [place], [address] MCV (RBC) [Entitic vol] 94.3 fL High 80-94 [facility] Comment on above: Performed By: #### L 300.4310, L500.2500, L100.0100, L300.3900 ####[facility] [address] [place], [address] Monocytes/100 WBC (Bld) 8.8 % Normal 0-10 [facility] Comment on above: Performed By: #### L 300.4310, L500.2500, L100.0100, L300.3900 ####[facility] [address] [place], [address] Neutrophils/100 WBC (Bld) 75.8 % High 47-70 [facility] Comment on above: Performed By: #### L 300.4310, L500.2500, L100.0100, L300.3900 ####[facility] [address] [place], [address] Nucleated RBC (Bld) [#/Vol] 0 10*3/uL Normal 0-5 [facility] Comment on above: Performed By: #### L 300.4310, L500.2500, L100.0100, L300.3900 ####[facility] [address] [place], [address] Platelet mean volume (Bld) [Entitic vol] 9.3 fL Normal 6.2-12.0 [facility] Comment on above: Performed By: #### L 300.4310, L500.2500, L100.0100, L300.3900 ####[facility] [address] [place], [address] Platelets (Bld) [#/Vol] 309 10*3/uL Normal 150-450 [facility] Comment on above: Performed By: #### L 300.4310, L500.2500, L100.0100, L300.3900 ####[facility] [address] [place], [address] RBC (Bld) [#/Vol] 4.03 10*6/uL Low 4.6-6.2 [facility] Comment on above: Performed By: #### L 300.4310, L500.2500, L100.0100, L300.3900 ####[facility] [address] [place], [address] RDW SD 54.1 fl High 35.1-43.9 [facility] Comment on above: Performed By: #### L 300.4310, L500.2500, L100.0100, L300.3900 ####[facility] [address] [place], [address] WBC (Bld) [#/Vol] 11.7 10*3/uL High 4.4-11.0 [facility] Comment on above: Performed By: #### L 300.4310, L500.2500, L100.0100, L300.3900 ####[facility] [address] [place], [address] Carbon dioxide, total [Moles /volume] in Central venous bloodOrdered By: Wei Allison on 01-08-2025 CO2 [Moles/Vol] 22.0 mmol/L Normal 21.0-32.0 [facility] Comment on above: Performed By: #### L 300.4310, L500.2500, L100.0100, L300.3900 ####[facility] [address] [place], [address] Chloride assayOrdered By: Hoang Allison on 01-08-2025 Chloride [Moles/Vol] 104 mmol/L Normal 98-108 [facility] Comment on above: Performed By: #### L 300.4310, L500.2500, L100.0100, L300.3900 ####[facility] [address] [place], [place], [id number] Eosinophil percentageOrdered By: Weicheyanne Allison on 01-08-2025 Eosinophils/100 WBC (Bld) 1.0 % 0-5 [facility] Erythrocyte distribution wid th ratioOrdered By: [facility] Keegan on 01-08-2025 Erythrocyte distribution width (RBC) [Ratio] 15.7 % High 11.6-14.6 [facility] Erythrocyte distribution wid th standard deviationOrdered By: [facility] Keegan on 01-08-2025 Erythrocyte distribution width (RBC) [Ratio] 54.1 fl High 35.1-43.9 [facility] Glomerular filtration rate ( GFR) estimation/1.73 sq m using serum, plasma, or whole bOrdered By: Weicheyanne Allison on 01-08-2025 GFR/1.73 sq M.predicted among non-blacks MDRD (S/P/Bld) [Vol rate/Area] 107 mL/min/{1.73_m2} Normal >60 [facility] Comment on above: mL/min/1.73m2 CKD-EP I Creatinine Equation (2020) Result Comment: mL/m in/1.73m2 CKD-EPI Creatinine Equation (2020) Performed By: #### L 300.4310, L500.2500, L100.0100, L300.3900 ####[facility] [address] [place], [place], [id number] Hematocrit Auto (Bld) [Volum e fraction]Ordered By: Wei Allison on 01-08-2025 Hematocrit (Bld) [Volume fraction] 38.0 % Low 40-54 [facility] Hemoglobin measurementOrdere d By: Weicheyanne Allison on 01-08-2025 Hemoglobin (Bld) [Mass/Vol] 12.5 g/dL Low 13.0-16.5 [facility] Immature granulocytes/100 WB C Auto (Bld)Ordered By: Weicheyanne Allison on 01-08-2025 Immature granulocytes/100 WBC (Bld) 0.500 % 0.0-0.9 [facility] Comment on above: IG% - Immature Granu locytes (promyelocytes, myelocytes and metamyelocytes) > 1% indicates that a LEFT SHIFT is Present. International normalized rat io (INR) calculationOrdered By: Wei Allison on 01-08-2025 INR Coag (Bld) [Relative time] 1.5 {INR} [facility] MCV (mean corpuscular volume ) determinationOrdered By: Wei Allison on 01-08-2025 MCV (RBC) [Entitic vol] 94.3 fL High 80-94 [facility] Mean corpuscular hemoglobin (MCH) determinationOrdered By: [facility] Keegan on 01-08-2025 MCH (RBC) [Entitic mass] 31.0 pg 27.0-32.0 [facility] Mean corpuscular hemoglobin concentration (MCHC) determinationOrdered By: [facility] Keegan on 01-08-2025 MCHC (RBC) [Mass/Vol] 32.9 g/dL 32-36 [facility] Mean platelet volume determi nationOrdered By: Wei Allison on 01-08-2025 Platelet mean volume (Bld) [Entitic vol] 9.3 fL 6.2-12.0 [facility] Monocyte percentageOrdered B y: Wei Keegan on 01-08-2025 Monocytes/100 WBC (Bld) 8.8 % 0-10 [facility] Neutrophil percentageOrdered By: [facility] Keegan on 01-08-2025 Neutrophils/100 WBC (Bld) 75.8 % High 47-70 [facility] Nucleated red blood cell per centageOrdered By: Weicheyanne Allison on 01-08-2025 Nucleated RBC/100 WBC (Bld) [Ratio] 0 % 0-5 [facility] Partial Thromboplast Timeon 01-08-2025 aPTT Coag (Bld) [Time] 49.1 s High 24.1-36.2 [facility] Comment on above: Performed By: #### L 581.8959 ####[facility] [address] [place], [address] aPTT Coag (Bld) [Time] 53.2 s High 24.1-36.2 [facility] Comment on above: Performed By: #### L 300.4310, L500.2500, L100.0100, L300.3900 ####[facility] [address] [place], [address] aPTT Coag (Bld) [Time] 48.0 s High 24.1-36.2 [facility] Comment on above: Performed By: #### L 300.4310 ####[facility] [address] [place], [address] Platelet countOrdered By: Hoang Allison on 01-08-2025 Platelets (Bld) [#/Vol] 309 10*3/uL 150-450 [facility] Potassium measurement (mass/ volume)Ordered By: Wei Allison on 01-08-2025 Potassium (Unsp spec) [Mass/Vol] 3.8 mmol/L 3.3-5.1 [facility] Prothrombin Time w/INRon INR Coag (PPP) [Relative time] 1.5 {INR} Normal [facility] Comment on above: Performed By: #### L 300.4310, L500.2500, L100.0100, L300.3900 ####[facility] [address] [place], [address] PT Coag (PPP) [Time] 18.1 s High 11.7-14.9 [facility] Comment on above: Performed By: #### L 300.4310, L500.2500, L100.0100, L300.3900 ####[facility] [address] [place], [address] Prothrombin timeOrdered By: Wei Allison on 01-08-2025 PT Coag (PPP) [Time] 18.1 s High 11.7-14.9 [facility] RBC Auto (Bld) [#/Vol]Ordere d By: Wei Allison on 01-08-2025 RBC (Bld) [#/Vol] 4.03 10*6/uL Low 4.6-6.2 [facility] Serum creatinine measurement (mass/volume)Ordered By: Wei Allison on 01-08-2025 Creatinine [Mass/Vol] 0.58 mg/dL Low 0.70-1.20 [facility] Comment on above: Performed By: #### L 300.4310, L500.2500, L100.0100, L300.3900 ####[facility] [address] [place], [address] Serum glucose measurement (m ass/volume)Ordered By: Wei Allison on 01-08-2025 Glucose [Mass/Vol] 117 mg/dL High 70-99 [facility] Comment on above: Performed By: #### L 300.4310, L500.2500, L100.0100, L300.3900 ####[facility] [address], [address] Serum or plasma calcium toan urement (mass/volume)Ordered By: Wei Allison on 01-08-2025 Calcium [Mass/Vol] 8.4 mg/dL Normal 7.6-11.0 [facility] Comment on above: Performed By: #### L 300.4310, L500.2500, L100.0100, L300.3900 ####[facility] [address], [address] Serum or plasma urea nitroge n measurement (mass/volume)Ordered By: Wei Allison on 01-08-2025 Urea nitrogen [Mass/Vol] 6 mg/dL Normal 4-19 [facility] Comment on above: Performed By: #### L 300.4310, L500.2500, L100.0100, L300.3900 ####[facility] [address] [place], [address] Sodium levelOrdered By: Wei Allison on 01-08-2025 Sodium [Moles/Vol] 137 mmol/L Normal 133-145 [facility] Comment on above: Performed By: #### L 300.4310, L500.2500, L100.0100, L300.3900 ####[facility] [address] [place], [address] White blood cell (WBC) count Ordered By: Wei Allison on 01-08-2025 WBC (Bld) [#/Vol] 11.7 10*3/uL High 4.4-11.0 [facility] ACT Activated Clotting Timeo n 01-07-2025 ACTk CLOT TIME 227 sec High 74-137 [facility] Comment on above: Performed By: #### L 9100.0100 ####[facility] [address] [place], [place], [id number] ACTk CLOT TIME 239 sec High 74-137 [facility] Comment on above: Performed By: #### L 9100.0100 ####[facility] [address] [place], [address] Activated clotting timeOrder ed By: Wei Allison on 01-07-2025 Activated Clotting Time 239 sec High 74-137 [facility] Anion gap in Serum or Plasma Ordered By: Wei Allison on 01-07-2025 Anion gap [Moles/Vol] 12 mmol/L 5-15 [facility] BUN/creatinine ratioOrdered By: Wei Allison on 01-07-2025 Urea nitrogen/Creatinine [Mass ratio] 19.8 mg/mg 10- [facility] Basic Metabolic Profile (BMP )on 01-07-2025 BUN/CRE 19.8 RATIO Normal - [facility] Comment on above: Order Comment: TSPAT DONE 3-18-25CBC Performed By: #### L 100.0500, L500.2500 ####[facility] [address] [place], [address] Calcium [Mass/Vol] 9.0 mg/dL Normal 7.6-11.0 [facility] Comment on above: Order Comment: TSPAT DONE 3-18-25CBC Performed By: #### L 100.0500, L500.2500 ####[facility] [address] [place], [address] Chloride [Moles/Vol] 103 mmol/L Normal 98-108 [facility] Comment on above: Order Comment: TSPAT DONE 3-18-25CBC Performed By: #### L 100.0500, L500.2500 ####[facility] [address] [place], [address] CO2 [Moles/Vol] 24.6 mmol/L Normal 21.0-32.0 [facility] Comment on above: Order Comment: TSPAT DONE 3-18-25CBC Performed By: #### L 100.0500, L500.2500 ####[facility] [address] [place], [address] Creatinine [Mass/Vol] 0.73 mg/dL Normal 0.70-1.20 [facility] Comment on above: Order Comment: TSPAT DONE 3-18-25CBC Performed By: #### L 100.0500, L500.2500 ####[facility] [address] [place], [address] ECRCL 104.48 ml/min Normal 50-250 [facility] Comment on above: Order Comment: TSPAT DONE 3-18-25CBC Performed By: #### L 100.0500, L500.2500 ####[facility] [address] [place], [address] GAP 12 Normal 5-15 [facility] Comment on above: Order Comment: TSPAT DONE 3-18-25CBC Performed By: #### L 100.0500, L500.2500 ####[facility] [address] [place], [address] GFR/1.73 sq M.predicted among non-blacks MDRD (S/P/Bld) [Vol rate/Area] 100 mL/min/{1.73_m2} Normal >60 [facility] Comment on above: Order Comment: TSPAT DONE 3-18-25CBC Result Comment: mL/m in/1.73m2 CKD-EPI Creatinine Equation (2020) Performed By: #### L 100.0500, L500.2500 ####[facility] [address] [place], [address] Glucose [Mass/Vol] 103 mg/dL High 70-99 [facility] Comment on above: Order Comment: TSPAT DONE 3-18-25CBC Performed By: #### L 100.0500, L500.2500 ####[facility] [address] [place], [address] Potassium [Moles/Vol] 3.8 mmol/L Normal 3.3-5.1 [facility] Comment on above: Order Comment: TSPAT DONE 3-18-25CBC Performed By: #### L 100.0500, L500.2500 ####[facility] [address] [place], [address] Sodium [Moles/Vol] 139 mmol/L Normal 133-145 [facility] Comment on above: Order Comment: TSPAT DONE 3-18-25CBC Performed By: #### L 100.0500, L500.2500 ####[facility] [address] [place], [address] Urea nitrogen [Mass/Vol] 14 mg/dL Normal 4-19 [facility] Comment on above: Order Comment: TSPAT DONE 3-18-25CBC Performed By: #### L 100.0500, L500.2500 ####[facility] [address] [place], [address] CBC-Complete Blood Cnt No Di ffon 01-07-2025 Erythrocyte distribution width (RBC) [Ratio] 15.5 % High 11.6-14.6 [facility] Comment on above: Performed By: #### L 100.0500, L500.2500 ####[facility] [address] [place], [address] Hematocrit (Bld) [Volume fraction] 39.7 % Low 40-54 [facility] Comment on above: Performed By: #### L 100.0500, L500.2500 ####[facility] [address] [place], [address] Hemoglobin (Bld) [Mass/Vol] 13.2 g/dL Normal 13.0-16.5 [facility] Comment on above: Performed By: #### L 100.0500, L500.2500 ####[facility] [address] [place], [address] MCH (RBC) [Entitic mass] 31.3 pg Normal 27.0-32.0 [facility] Comment on above: Performed By: #### L 100.0500, L500.2500 ####[facility] [address] [place], [address] MCHC (RBC) [Mass/Vol] 33.2 g/dL Normal 32-36 [facility] Comment on above: Performed By: #### L 100.0500, L500.2500 ####[facility] [address] [place], [address] MCV (RBC) [Entitic vol] 94.1 fL High 80-94 [facility] Comment on above: Performed By: #### L 100.0500, L500.2500 ####[facility] [address] [place], [address] Platelet mean volume (Bld) [Entitic vol] 9.1 fL Normal 6.2-12.0 [facility] Comment on above: Performed By: #### L 100.0500, L500.2500 ####[facility] [address] [place], [address] Platelets (Bld) [#/Vol] 326 10*3/uL Normal 150-450 [facility] Comment on above: Performed By: #### L 100.0500, L500.2500 ####[facility] [address] [place], [address] RBC (Bld) [#/Vol] 4.22 10*6/uL Low 4.6-6.2 [facility] Comment on above: Performed By: #### L 100.0500, L500.2500 ####[facility] [address] [place], [address] RDW SD 53.4 fl High 35.1-43.9 [facility] Comment on above: Performed By: #### L 100.0500, L500.2500 ####[facility] [address] [place], [address] WBC (Bld) [#/Vol] 9.2 10*3/uL Normal 4.4-11.0 [facility] Comment on above: Performed By: #### L 100.0500, L500.2500 ####[facility] [address] [place], [address] Carbon dioxide, total [Moles /volume] in Central venous bloodOrdered By: Wei Allison on 01-07-2025 CO2 [Moles/Vol] 24.6 mmol/L 21.0-32.0 [facility] Chloride assayOrdered By: Hoang Allison on 01-07-2025 Chloride [Moles/Vol] 103 mmol/L 98-108 [facility] Erythrocyte distribution wid th ratioOrdered By: Wei Allison on 01-07-2025 Erythrocyte distribution width (RBC) [Ratio] 15.5 % High 11.6-14.6 [facility] Erythrocyte distribution wid th standard deviationOrdered By: Wei Allison on 01-07-2025 Erythrocyte distribution width (RBC) [Entitic vol] 53.4 fL High 35.1-43.9 [facility] Estimation of creatinine carlos aranceOrdered By: Wei Allison on 01-07-2025 Estimated Creatinine Clearance Calc 104.48 ml/min 50-250 [facility] GFR/1.73 sq M.predicted nathan g non-blacks MDRD (S/P/Bld) [Vol rate/Area]Ordered By: Wei Allison on 01-07-2025 Estimated GFR (MDRD) Non-Af Amer 100 >60 [facility] Comment on above: mL/min/1.73m2 CKD-EP I Creatinine Equation (2020) Hematocrit Auto (Bld) [Volum e fraction]Ordered By: Wei Allison on 01-07-2025 Hematocrit (Bld) [Volume fraction] 39.7 % Low 40-54 [facility] Hemoglobin measurementOrdere d By: Wei Allison on 01-07-2025 Hemoglobin (Bld) [Mass/Vol] 13.2 g/dL 13.0-16.5 [facility] INR Coag (BldC) [Relative ti me]Ordered By: Wei Allison on 01-07-2025 INR Coag (Bld) [Relative time] 1.2 {INR} [facility] Comment on above: Critical Value > 4.0 MCV (mean corpuscular volume ) determinationOrdered By: Wei Allison on 01-07-2025 MCV (RBC) [Entitic vol] 94.1 fL High 80-94 [facility] MR/POSTOP.ANEon 01-07-2025 MR/POSTOP.ANE Normal [facility] MR/NIGIUXJG3tf 01-07-2025 MR/POSTOPAN2 Normal [facility] Mean corpuscular hemoglobin (MCH) determinationOrdered By: Wei Allison on 01-07-2025 MCH (RBC) [Entitic mass] 31.3 pg 27.0-32.0 [facility] Mean corpuscular hemoglobin concentration (MCHC) determinationOrdered By: Wei Allison on 01-07-2025 MCHC (RBC) [Mass/Vol] 33.2 g/dL 32-36 [facility] Mean platelet volume determi nationOrdered By: Wei Allison on 01-07-2025 Platelet mean volume (Bld) [Entitic vol] 9.1 fL 6.2-12.0 [facility] Operative Reporton Operative Report Normal [facility] PT Coag (Bld) [Time]Ordered By: Wei Allison on 01-07-2025 Bedside Prothrombin Time 14.5 SEC 11.7-14.9 [facility] Partial Thromboplast Timeon 01-07-2025 aPTT Coag (Bld) [Time] 59.9 s High 24.1-36.2 [facility] Comment on above: Performed By: #### L 300.4310 ####[facility] [address] [place], [address] Platelet countOrdered By: Hoang Allison on 01-07-2025 Platelets (Bld) [#/Vol] 326 10*3/uL 150-450 [facility] Potassium (Unsp spec) [Mass/ Vol]Ordered By: Wei Allison on 01-07-2025 Potassium [Moles/Vol] 3.8 mmol/L 3.3-5.1 [facility] Protime w/INR Fingerstickon 01-07-2025 INR Coag (PPP) [Relative time] 1.2 {INR} Normal [facility] Comment on above: Result Comment: Crit ical Value > 4.0 Performed By: #### L 9200.0000 ####[facility] [address] [place], [address] Protime Coagsen 14.5 SEC Normal 11.7-14.9 [facility] Comment on above: Performed By: #### L 9200.0000 ####[facility] [address] [place], [address] RBC Auto (Bld) [#/Vol]Ordere d By: Wei Allison on 01-07-2025 RBC (Bld) [#/Vol] 4.22 10*6/uL Low 4.6-6.2 [facility] Serum creatinine measurement (mass/volume)Ordered By: Wei Allison on 01-07-2025 Creatinine [Mass/Vol] 0.73 mg/dL 0.70-1.20 [facility] Serum glucose measurement (m ass/volume)Ordered By: Wei Allison on 01-07-2025 Glucose [Mass/Vol] 103 mg/dL High 70-99 [facility] Serum or plasma calcium toan urement (mass/volume)Ordered By: Wei Allison on 01-07-2025 Calcium [Mass/Vol] 9.0 mg/dL 7.6-11.0 [facility] Serum or plasma urea nitroge n measurement (mass/volume)Ordered By: Wei Allison on 01-07-2025 Urea nitrogen [Mass/Vol] 14 mg/dL 4-19 [facility] Sodium levelOrdered By: Weicheyanne Allison on 01-07-2025 Sodium [Moles/Vol] 139 mmol/L 133-145 [facility] White blood cell (WBC) count Ordered By: Wei Allison on 01-07-2025 WBC (Bld) [#/Vol] 9.2 10*3/uL 4.4-11.0 [facility] Whole blood prothrombin time Ordered By: Wei Allison on 01-07-2025 PT Coag (Bld) [Time] 14.5 s 11.7-14.9 [facility] aPTT Coag (PPP) [Time]Ordere d By: Wei Allison on 01-07-2025 aPTT Coag (Bld) [Time] 59.9 s High 24.1-36.2 [facility] 12 Lead EKGon 12-25-2024 12 Lead EKG Normal [facility] Partial Thromboplast Timeon 12-25-2024 aPTT Coag (Bld) [Time] 40.1 s High 24.1-36.2 [facility] Comment on above: Performed By: #### Adalberto , L300.8510 ####[facility] [address] [place], [place], [address] Type AND Screenon 12-25-2024 Ab SCREEN GEL Negative Normal [facility] Comment on above: Order Comment: Reaso n for Laboratory Test [id number] Performed By: #### Adalberto GRANT, L300.4310 ####[facility] [address] [place], [address] ABO and Rh group Nom (Bld) Blood group A Rh(D) positive Normal [facility] Comment on above: Order Comment: Reaso n for Laboratory Test [id number] Performed By: #### B TS, L300.4310 ####[facility] [address] [place], [address] MR/PAT.ANEon 12-24-2024 MR/PAT.ANE Normal [facility] MR/BMS.BVSon 12-21-2024 MR/BMS.BVS Normal [facility] Basic Metabolic Profile (BMP )on 12-18-2024 BUN Normal 4-19 [facility] Comment on above: Result Comment: Canc elled via OM: Order cancelled - Patient discharged Performed By: #### L 100.0100, L500.2500 ####[facility] [address] [place], [address] BUN/CRE Normal 10-20 [facility] Comment on above: Result Comment: Canc elled via OM: Order cancelled - Patient discharged Performed By: #### L 100.0100, L500.2500 ####[facility] [address] [place], [address] Calcium Normal 7.6-11.0 [facility] Comment on above: Result Comment: Canc elled via OM: Order cancelled - Patient discharged Performed By: #### L 100.0100, L500.2500 ####[facility] [address] [place], [address] CL Normal 98-107 [facility] Comment on above: Result Comment: Canc elled via OM: Order cancelled - Patient discharged Performed By: #### L 100.0100, L500.2500 ####[facility] [address] [place], [address] CO2 Normal 21.0-32.0 [facility] Comment on above: Result Comment: Canc elled via OM: Order cancelled - Patient discharged Performed By: #### L 100.0100, L500.2500 ####[facility] [address] [place], [address] CREAT,SERUM Normal 0.70-1.20 [facility] Comment on above: Result Comment: Canc elled via OM: Order cancelled - Patient discharged Performed By: #### L 100.0100, L500.2500 ####[facility] [address] [place], [address] eGFR Normal >60 [facility] Comment on above: Result Comment: Canc elled via OM: Order cancelled - Patient discharged Performed By: #### L 100.0100, L500.2500 ####[facility] [address] [place], [address] GAP Normal 5-15 [facility] Comment on above: Result Comment: Canc elled via OM: Order cancelled - Patient discharged Performed By: #### L 100.0100, L500.2500 ####[facility] [address] [place], [address] GLU Normal 70-99 [facility] Comment on above: Result Comment: Canc elled via OM: Order cancelled - Patient discharged Performed By: #### L 100.0100, L500.2500 ####[facility] [address] [place], [address] Potassium Normal 3.5-5.1 [facility] Comment on above: Result Comment: Canc elled via OM: Order cancelled - Patient discharged Performed By: #### L 100.0100, L500.2500 ####[facility] [address] [place], [address] Basic Metabolic Profile (BMP) Normal 136-145 [facility] Comment on above: Result Comment: Canc elled via OM: Order cancelled - Patient discharged Performed By: #### L 100.0100, L500.2500 ####[facility] [address] [place], [address] CBC W/Diff, Automatedon 03- Absolute Neut Normal 2.0-7.7 [facility] Comment on above: Result Comment: Canc elled via OM: Order cancelled - Patient discharged Performed By: #### L 100.0100, L500.2500 ####[facility] [address] [place], [address] HCT Normal 40-54 [facility] Comment on above: Result Comment: Canc elled via OM: Order cancelled - Patient discharged Performed By: #### L 100.0100, L500.2500 ####[facility] [address] [place], [address] HGB Normal 13.0-16.5 [facility] Comment on above: Result Comment: Canc elled via OM: Order cancelled - Patient discharged Performed By: #### L 100.0100, L500.2500 ####[facility] [address] [place], [address] MCH Normal 27.0-32.0 [facility] Comment on above: Result Comment: Canc elled via OM: Order cancelled - Patient discharged Performed By: #### L 100.0100, L500.2500 ####[facility] [address] [place], [address] MCHC Normal 32-36 [facility] Comment on above: Result Comment: Canc elled via OM: Order cancelled - Patient discharged Performed By: #### L 100.0100, L500.2500 ####[facility] [address] [place], [address] MCV Normal 80-94 [facility] Comment on above: Result Comment: Canc elled via OM: Order cancelled - Patient discharged Performed By: #### L 100.0100, L500.2500 ####[facility] [address] [place], [address] NEUT% Normal 47-70 [facility] Comment on above: Result Comment: Canc elled via OM: Order cancelled - Patient discharged Performed By: #### L 100.0100, L500.2500 ####[facility] [address] [place], [address] PLT Normal 150-450 [facility] Comment on above: Result Comment: Canc elled via OM: Order cancelled - Patient discharged Performed By: #### L 100.0100, L500.2500 ####[facility] [address] [place], [address] RBC Normal 4.6-6.2 [facility] Comment on above: Result Comment: Canc elled via OM: Order cancelled - Patient discharged Performed By: #### L 100.0100, L500.2500 ####[facility] [address] [place], [address] RDW CV Normal 11.6-14.6 [facility] Comment on above: Result Comment: Canc elled via OM: Order cancelled - Patient discharged Performed By: #### L 100.0100, L500.2500 ####[facility] [address] [place], [address] RDW SD Normal 35.1-43.9 [facility] Comment on above: Result Comment: Canc elled via OM: Order cancelled - Patient discharged Performed By: #### L 100.0100, L500.2500 ####[facility] [address] [place], [address] WBC Normal 4.4-11.0 [facility] Comment on above: Result Comment: Canc elled via OM: Order cancelled - Patient discharged Performed By: #### L 100.0100, L500.2500 ####[facility] [address] [place], [address] Basic Metabolic Profile (BMP )on 12-17-2024 BUN Normal -19 [facility] Comment on above: Result Comment: Canc elled via OM: Order cancelled - Patient discharged Performed By: #### L 500.2500, L100.0100 ####[facility] [address] [place], [address] BUN/CRE Normal 10-20 [facility] Comment on above: Result Comment: Canc elled via OM: Order cancelled - Patient discharged Performed By: #### L 500.2500, L100.0100 ####[facility] [address] [place], [address] Calcium Normal 7.6-11.0 [facility] Comment on above: Result Comment: Canc elled via OM: Order cancelled - Patient discharged Performed By: #### L 500.2500, L100.0100 ####[facility] [address] [place], [address] CL Normal 98-107 [facility] Comment on above: Result Comment: Canc elled via OM: Order cancelled - Patient discharged Performed By: #### L 500.2500, L100.0100 ####[facility] [address] [place], [address] CO2 Normal 21.0-32.0 [facility] Comment on above: Result Comment: Canc elled via OM: Order cancelled - Patient discharged Performed By: #### L 500.2500, L100.0100 ####[facility] [address] [place], [address] CREAT,SERUM Normal 0.70-1.20 [facility] Comment on above: Result Comment: Canc elled via OM: Order cancelled - Patient discharged Performed By: #### L 500.2500, L100.0100 ####[facility] [address] [place], [address] eGFR Normal >60 [facility] Comment on above: Result Comment: Canc elled via OM: Order cancelled - Patient discharged Performed By: #### L 500.2500, L100.0100 ####[facility] [address] [place], [address] GAP Normal 5-15 [facility] Comment on above: Result Comment: Canc elled via OM: Order cancelled - Patient discharged Performed By: #### L 500.2500, L100.0100 ####[facility] [address] [place], [address] GLU Normal 70-99 [facility] Comment on above: Result Comment: Canc elled via OM: Order cancelled - Patient discharged Performed By: #### L 500.2500, L100.0100 ####[facility] [address] [place], [address] Potassium Normal 3.5-5.1 [facility] Comment on above: Result Comment: Canc elled via OM: Order cancelled - Patient discharged Performed By: #### L 500.2500, L100.0100 ####[facility] [address] [place], [address] Basic Metabolic Profile (BMP) Normal 136-145 [facility] Comment on above: Result Comment: Canc elled via OM: Order cancelled - Patient discharged Performed By: #### L 500.2500, L100.0100 ####[facility] [address] [place], [address] CBC W/Diff, Automatedon - Absolute Neut Normal 2.0-7.7 [facility] Comment on above: Result Comment: Canc elled via OM: Order cancelled - Patient discharged Performed By: #### L 500.2500, L100.0100 ####[facility] [address] [place], [address] HCT Normal 40-54 [facility] Comment on above: Result Comment: Canc elled via OM: Order cancelled - Patient discharged Performed By: #### L 500.2500, L100.0100 ####[facility] [address] [place], [address] HGB Normal 13.0-16.5 [facility] Comment on above: Result Comment: Canc elled via OM: Order cancelled - Patient discharged Performed By: #### L 500.2500, L100.0100 ####[facility] [address] [place], [address] MCH Normal 27.0-32.0 [facility] Comment on above: Result Comment: Canc elled via OM: Order cancelled - Patient discharged Performed By: #### L 500.2500, L100.0100 ####[facility] [address] [place], [address] MCHC Normal 32-36 [facility] Comment on above: Result Comment: Canc elled via OM: Order cancelled - Patient discharged Performed By: #### L 500.2500, L100.0100 ####[facility] [address] [place], [address] MCV Normal 80-94 [facility] Comment on above: Result Comment: Canc elled via OM: Order cancelled - Patient discharged Performed By: #### L 500.2500, L100.0100 ####[facility] [address] [place], [address] NEUT% Normal 47-70 [facility] Comment on above: Result Comment: Canc elled via OM: Order cancelled - Patient discharged Performed By: #### L 500.2500, L100.0100 ####[facility] [address] [place], [address] PLT Normal 150-450 [facility] Comment on above: Result Comment: Canc elled via OM: Order cancelled - Patient discharged Performed By: #### L 500.2500, L100.0100 ####[facility] [address] [place], [address] RBC Normal 4.6-6.2 [facility] Comment on above: Result Comment: Canc elled via OM: Order cancelled - Patient discharged Performed By: #### L 500.2500, L100.0100 ####[facility] [address] [place], [address] RDW CV Normal 11.6-14.6 [facility] Comment on above: Result Comment: Canc elled via OM: Order cancelled - Patient discharged Performed By: #### L 500.2500, L100.0100 ####[facility] [address] [place], [address] RDW SD Normal 35.1-43.9 [facility] Comment on above: Result Comment: Canc elled via OM: Order cancelled - Patient discharged Performed By: #### L 500.2500, L100.0100 ####[facility] [address] [place], [address] WBC Normal 4.4-11.0 [facility] Comment on above: Result Comment: Canc elled via OM: Order cancelled - Patient discharged Performed By: #### L 500.2500, L100.0100 ####[facility] [address] [place], [address] Prothrombin Time w/INRon INR Normal [facility] Comment on above: Result Comment: Canc elled via OM: Order cancelled - Patient discharged Performed By: #### L 300.3900 ####[facility] [address] [place], [address] PROTIME Normal 11.7-14.9 [facility] Comment on above: Result Comment: Canc elled via OM: Order cancelled - Patient discharged Performed By: #### L 300.3900 ####[facility] [address] [place], [address] Basic Metabolic Profile (BMP )on 12-16-2024 BUN Normal 4-19 [facility] Comment on above: Result Comment: Canc elled via OM: Order cancelled - Patient discharged Performed By: #### L 500.2500, L100.0100 ####[facility] [address] [place], [address] BUN/CRE Normal 10-20 [facility] Comment on above: Result Comment: Canc elled via OM: Order cancelled - Patient discharged Performed By: #### L 500.2500, L100.0100 ####[facility] [address] [place], [address] Calcium Normal 7.6-11.0 [facility] Comment on above: Result Comment: Canc elled via OM: Order cancelled - Patient discharged Performed By: #### L 500.2500, L100.0100 ####[facility] [address] [place], [address] CL Normal 98-107 [facility] Comment on above: Result Comment: Canc elled via OM: Order cancelled - Patient discharged Performed By: #### L 500.2500, L100.0100 ####[facility] [address] [place], [address] CO2 Normal 21.0-32.0 [facility] Comment on above: Result Comment: Canc elled via OM: Order cancelled - Patient discharged Performed By: #### L 500.2500, L100.0100 ####[facility] [address] [place], [address] CREAT,SERUM Normal 0.70-1.20 [facility] Comment on above: Result Comment: Canc elled via OM: Order cancelled - Patient discharged Performed By: #### L 500.2500, L100.0100 ####[facility] [address] [place], [address] eGFR Normal >60 [facility] Comment on above: Result Comment: Canc elled via OM: Order cancelled - Patient discharged Performed By: #### L 500.2500, L100.0100 ####[facility] [address] [place], [address] GAP Normal 5-15 [facility] Comment on above: Result Comment: Canc elled via OM: Order cancelled - Patient discharged Performed By: #### L 500.2500, L100.0100 ####[facility] [address] [place], [address] GLU Normal 70-99 [facility] Comment on above: Result Comment: Canc elled via OM: Order cancelled - Patient discharged Performed By: #### L 500.2500, L100.0100 ####[facility] [address] [place], [address] Potassium Normal 3.5-5.1 [facility] Comment on above: Result Comment: Canc elled via OM: Order cancelled - Patient discharged Performed By: #### L 500.2500, L100.0100 ####[facility] [address] [place], [address] Basic Metabolic Profile (BMP) Normal 136-145 [facility] Comment on above: Result Comment: Canc elled via OM: Order cancelled - Patient discharged Performed By: #### L 500.2500, L100.0100 ####[facility] [address] [place], [address] CBC W/Diff, Automatedon 03-0 Absolute Neut Normal 2.0-7.7 [facility] Comment on above: Result Comment: Canc elled via OM: Order cancelled - Patient discharged Performed By: #### L 500.2500, L100.0100 ####[facility] [address] [place], [address] HCT Normal 40-54 [facility] Comment on above: Result Comment: Canc elled via OM: Order cancelled - Patient discharged Performed By: #### L 500.2500, L100.0100 ####[facility] [address] [place], [address] HGB Normal 13.0-16.5 [facility] Comment on above: Result Comment: Canc elled via OM: Order cancelled - Patient discharged Performed By: #### L 500.2500, L100.0100 ####[facility] [address] [place], [address] MCH Normal 27.0-32.0 [facility] Comment on above: Result Comment: Canc elled via OM: Order cancelled - Patient discharged Performed By: #### L 500.2500, L100.0100 ####[facility] [address] [place], [address] MCHC Normal 32-36 [facility] Comment on above: Result Comment: Canc elled via OM: Order cancelled - Patient discharged Performed By: #### L 500.2500, L100.0100 ####[facility] [address] [place], [address] MCV Normal 80-94 [facility] Comment on above: Result Comment: Canc elled via OM: Order cancelled - Patient discharged Performed By: #### L 500.2500, L100.0100 ####[facility] [address] [place], [address] NEUT% Normal 47-70 [facility] Comment on above: Result Comment: Canc elled via OM: Order cancelled - Patient discharged Performed By: #### L 500.2500, L100.0100 ####[facility] [address] [place], [address] PLT Normal 150-450 [facility] Comment on above: Result Comment: Canc elled via OM: Order cancelled - Patient discharged Performed By: #### L 500.2500, L100.0100 ####[facility] [address] [place], [address] RBC Normal 4.6-6.2 [facility] Comment on above: Result Comment: Canc elled via OM: Order cancelled - Patient discharged Performed By: #### L 500.2500, L100.0100 ####[facility] [address] [place], [address] RDW CV Normal 11.6-14.6 [facility] Comment on above: Result Comment: Canc elled via OM: Order cancelled - Patient discharged Performed By: #### L 500.2500, L100.0100 ####[facility] [address] [place], [address] RDW SD Normal 35.1-43.9 [facility] Comment on above: Result Comment: Canc elled via OM: Order cancelled - Patient discharged Performed By: #### L 500.2500, L100.0100 ####[facility] [address] [place], [address] WBC Normal 4.4-11.0 [facility] Comment on above: Result Comment: Canc elled via OM: Order cancelled - Patient discharged Performed By: #### L 500.2500, L100.0100 ####[facility] [address] [place], [address] Prothrombin Time w/INRon INR Normal [facility] Comment on above: Result Comment: Canc elled via OM: Order cancelled - Patient discharged Performed By: #### L 300.3900 ####[facility] [address] [place], [address] PROTIME Normal 11.7-14.9 [facility] Comment on above: Result Comment: Canc elled via OM: Order cancelled - Patient discharged Performed By: #### L 300.3900 ####[facility] [address] [place], [address] Basic Metabolic Profile (BMP )on 12-15-2024 BUN Normal 4-19 [facility] Comment on above: Result Comment: Canc elled via OM: Order cancelled - Patient discharged Performed By: #### L 100.0100, L500.2500 ####[facility] [address] [place], [address] BUN/CRE Normal 10-20 [facility] Comment on above: Result Comment: Canc elled via OM: Order cancelled - Patient discharged Performed By: #### L 100.0100, L500.2500 ####[facility] [address] [place], [address] Calcium Normal 7.6-11.0 [facility] Comment on above: Result Comment: Canc elled via OM: Order cancelled - Patient discharged Performed By: #### L 100.0100, L500.2500 ####[facility] [address] [place], [address] CL Normal 98-107 [facility] Comment on above: Result Comment: Canc elled via OM: Order cancelled - Patient discharged Performed By: #### L 100.0100, L500.2500 ####[facility] [address] [place], [address] CO2 Normal 21.0-32.0 [facility] Comment on above: Result Comment: Canc elled via OM: Order cancelled - Patient discharged Performed By: #### L 100.0100, L500.2500 ####[facility] [address] [place], [address] CREAT,SERUM Normal 0.70-1.20 [facility] Comment on above: Result Comment: Canc elled via OM: Order cancelled - Patient discharged Performed By: #### L 100.0100, L500.2500 ####[facility] [address] [place], [address] eGFR Normal >60 [facility] Comment on above: Result Comment: Canc elled via OM: Order cancelled - Patient discharged Performed By: #### L 100.0100, L500.2500 ####[facility] [address] [place], [address] GAP Normal 5-15 [facility] Comment on above: Result Comment: Canc elled via OM: Order cancelled - Patient discharged Performed By: #### L 100.0100, L500.2500 ####[facility] [address] [place], [address] GLU Normal 70-99 [facility] Comment on above: Result Comment: Canc elled via OM: Order cancelled - Patient discharged Performed By: #### L 100.0100, L500.2500 ####[facility] [address] [place], [address] Potassium Normal 3.5-5.1 [facility] Comment on above: Result Comment: Canc elled via OM: Order cancelled - Patient discharged Performed By: #### L 100.0100, L500.2500 ####[facility] [address] [place], [address] Basic Metabolic Profile (BMP) Normal 136-145 [facility] Comment on above: Result Comment: Canc elled via OM: Order cancelled - Patient discharged Performed By: #### L 100.0100, L500.2500 ####[facility] [address] [place], [address] CBC W/Diff, Automatedon 03-0 -2024 Absolute Neut Normal 2.0-7.7 [facility] Comment on above: Result Comment: Canc elled via OM: Order cancelled - Patient discharged Performed By: #### L 100.0100, L500.2500 ####[facility] [address] [place], [address] HCT Normal 40-54 [facility] Comment on above: Result Comment: Canc elled via OM: Order cancelled - Patient discharged Performed By: #### L 100.0100, L500.2500 ####[facility] [address] [place], [address] HGB Normal 13.0-16.5 [facility] Comment on above: Result Comment: Canc elled via OM: Order cancelled - Patient discharged Performed By: #### L 100.0100, L500.2500 ####[facility] [address] [place], [address] MCH Normal 27.0-32.0 [facility] Comment on above: Result Comment: Canc elled via OM: Order cancelled - Patient discharged Performed By: #### L 100.0100, L500.2500 ####[facility] [address] [place], [address] MCHC Normal 32-36 [facility] Comment on above: Result Comment: Canc elled via OM: Order cancelled - Patient discharged Performed By: #### L 100.0100, L500.2500 ####[facility] [address] [place], [address] MCV Normal 80-94 [facility] Comment on above: Result Comment: Canc elled via OM: Order cancelled - Patient discharged Performed By: #### L 100.0100, L500.2500 ####[facility] [address] [place], [address] NEUT% Normal 47-70 [facility] Comment on above: Result Comment: Canc elled via OM: Order cancelled - Patient discharged Performed By: #### L 100.0100, L500.2500 ####[facility] [address] [place], [address] PLT Normal 150-450 [facility] Comment on above: Result Comment: Canc elled via OM: Order cancelled - Patient discharged Performed By: #### L 100.0100, L500.2500 ####[facility] [address] [place], [address] RBC Normal 4.6-6.2 [facility] Comment on above: Result Comment: Canc elled via OM: Order cancelled - Patient discharged Performed By: #### L 100.0100, L500.2500 ####[facility] [address] [place], [address] RDW CV Normal 11.6-14.6 [facility] Comment on above: Result Comment: Canc elled via OM: Order cancelled - Patient discharged Performed By: #### L 100.0100, L500.2500 ####[facility] [address] [place], [address] RDW SD Normal 35.1-43.9 [facility] Comment on above: Result Comment: Canc elled via OM: Order cancelled - Patient discharged Performed By: #### L 100.0100, L500.2500 ####[facility] [address] [place], [address] WBC Normal 4.4-11.0 [facility] Comment on above: Result Comment: Canc elled via OM: Order cancelled - Patient discharged Performed By: #### L 100.0100, L500.2500 ####[facility] [address] [place], [address] Prothrombin Time w/INRon INR Normal [facility] Comment on above: Result Comment: Canc elled via OM: Order cancelled - Patient discharged Performed By: #### L 300.3900 ####[facility] [address] [place], [address] PROTIME Normal 11.7-14.9 [facility] Comment on above: Result Comment: Canc elled via OM: Order cancelled - Patient discharged Performed By: #### L 300.3900 ####[facility] [address] [place], [address] Basic Metabolic Profile (BMP )on 12-14-2024 BUN Normal 4-19 [facility] Comment on above: Result Comment: Canc elled via OM: Order cancelled - Patient discharged Performed By: #### L 100.0100, L500.2500 ####[facility] [address] [place], [address] BUN/CRE Normal 10-20 [facility] Comment on above: Result Comment: Canc elled via OM: Order cancelled - Patient discharged Performed By: #### L 100.0100, L500.2500 ####[facility] [address] [place], [address] Calcium Normal 7.6-11.0 [facility] Comment on above: Result Comment: Canc elled via OM: Order cancelled - Patient discharged Performed By: #### L 100.0100, L500.2500 ####[facility] [address] [place], [address] CL Normal 98-107 [facility] Comment on above: Result Comment: Canc elled via OM: Order cancelled - Patient discharged Performed By: #### L 100.0100, L500.2500 ####[facility] [address] [place], [address] CO2 Normal 21.0-32.0 [facility] Comment on above: Result Comment: Canc elled via OM: Order cancelled - Patient discharged Performed By: #### L 100.0100, L500.2500 ####[facility] [address] [place], [address] CREAT,SERUM Normal 0.70-1.20 [facility] Comment on above: Result Comment: Canc elled via OM: Order cancelled - Patient discharged Performed By: #### L 100.0100, L500.2500 ####[facility] [address] [place], [address] eGFR Normal >60 [facility] Comment on above: Result Comment: Canc elled via OM: Order cancelled - Patient discharged Performed By: #### L 100.0100, L500.2500 ####[facility] [address] [place], [address] GAP Normal 5-15 [facility] Comment on above: Result Comment: Canc elled via OM: Order cancelled - Patient discharged Performed By: #### L 100.0100, L500.2500 ####[facility] [address] [place], [address] GLU Normal 70-99 [facility] Comment on above: Result Comment: Canc elled via OM: Order cancelled - Patient discharged Performed By: #### L 100.0100, L500.2500 ####[facility] [address] [place], [address] Potassium Normal 3.5-5.1 [facility] [facility] Comment on above: Result Comment: Canc elled via OM: Order cancelled - Patient discharged Performed By: #### L 100.0100, L500.2500 ####[facility] [address] [place], [address] Basic Metabolic Profile (BMP) Normal 136-145 [facility] Comment on above: Result Comment: Canc elled via OM: Order cancelled - Patient discharged Performed By: #### L 100.0100, L500.2500 ####[facility] [address] [place], [address] CBC W/Diff, Automatedon 03-0 Absolute Neut Normal 2.0-7.7 [facility] Comment on above: Result Comment: Canc elled via OM: Order cancelled - Patient discharged Performed By: #### L 100.0100, L500.2500 ####[facility] [address] [place], [address] HCT Normal 40-54 [facility] Comment on above: Result Comment: Canc elled via OM: Order cancelled - Patient discharged Performed By: #### L 100.0100, L500.2500 ####[facility] [address] [place], [address] HGB Normal 13.0-16.5 [facility] Comment on above: Result Comment: Canc elled via OM: Order cancelled - Patient discharged Performed By: #### L 100.0100, L500.2500 ####[facility] [address] [place], [address] MCH Normal 27.0-32.0 [facility] Comment on above: Result Comment: Canc elled via OM: Order cancelled - Patient discharged Performed By: #### L 100.0100, L500.2500 ####[facility] [address] [place], [address] MCHC Normal 32-36 [facility] Comment on above: Result Comment: Canc elled via OM: Order cancelled - Patient discharged Performed By: #### L 100.0100, L500.2500 ####[facility] [address] [place], [address] MCV Normal 80-94 [facility] Comment on above: Result Comment: Canc elled via OM: Order cancelled - Patient discharged Performed By: #### L 100.0100, L500.2500 ####[facility] [address] [place], [address] NEUT% Normal 47-70 [facility] Comment on above: Result Comment: Canc elled via OM: Order cancelled - Patient discharged Performed By: #### L 100.0100, L500.2500 ####[facility] [address] [place], [address] PLT Normal 150-450 [facility] Comment on above: Result Comment: Canc elled via OM: Order cancelled - Patient discharged Performed By: #### L 100.0100, L500.2500 ####[facility] [address] [place], [address] RBC Normal 4.6-6.2 [facility] Comment on above: Result Comment: Canc elled via OM: Order cancelled - Patient discharged Performed By: #### L 100.0100, L500.2500 ####[facility] [address] [place], [address] RDW CV Normal 11.6-14.6 [facility] Comment on above: Result Comment: Canc elled via OM: Order cancelled - Patient discharged Performed By: #### L 100.0100, L500.2500 ####[facility] [address] [place], [address] RDW SD Normal 35.1-43.9 [facility] Comment on above: Result Comment: Canc elled via OM: Order cancelled - Patient discharged Performed By: #### L 100.0100, L500.2500 ####[facility] [address] [place], [address] WBC Normal 4.4-11.0 [facility] Comment on above: Result Comment: Canc elled via OM: Order cancelled - Patient discharged Performed By: #### L 100.0100, L500.2500 ####[facility] [address] [place], [address] Prothrombin Time w/INRon INR Normal [facility] Comment on above: Result Comment: Canc elled via OM: Order cancelled - Patient discharged Performed By: #### L 300.3900 ####[facility] [address] [place], [address] PROTIME Normal 11.7-14.9 [facility] Comment on above: Result Comment: Canc elled via OM: Order cancelled - Patient discharged Performed By: #### L 300.3900 ####[facility] [address] [place], [address] Basic Metabolic Profile (BMP )on 12-13-2024 BUN Normal 4-19 [facility] Comment on above: Result Comment: Canc elled via OM: Order cancelled - Patient discharged Performed By: #### L 100.0100, L500.2500 ####[facility] [address] [place], [address] BUN/CRE Normal 10-20 [facility] Comment on above: Result Comment: Canc elled via OM: Order cancelled - Patient discharged Performed By: #### L 100.0100, L500.2500 ####[facility] [address] [place], [address] Calcium Normal 7.6-11.0 [facility] Comment on above: Result Comment: Canc elled via OM: Order cancelled - Patient discharged Performed By: #### L 100.0100, L500.2500 ####[facility] [address] [place], [address] CL Normal 98-107 [facility] Comment on above: Result Comment: Canc elled via OM: Order cancelled - Patient discharged Performed By: #### L 100.0100, L500.2500 ####[facility] [address] [place], [address] CO2 Normal 21.0-32.0 [facility] Comment on above: Result Comment: Canc elled via OM: Order cancelled - Patient discharged Performed By: #### L 100.0100, L500.2500 ####[facility] [address] [place], [address] CREAT,SERUM Normal 0.70-1.20 [facility] Comment on above: Result Comment: Canc elled via OM: Order cancelled - Patient discharged Performed By: #### L 100.0100, L500.2500 ####[facility] [address] [place], [address] eGFR Normal >60 [facility] Comment on above: Result Comment: Canc elled via OM: Order cancelled - Patient discharged Performed By: #### L 100.0100, L500.2500 ####[facility] [address] [place], [address] GAP Normal 5-15 [facility] Comment on above: Result Comment: Canc elled via OM: Order cancelled - Patient discharged Performed By: #### L 100.0100, L500.2500 ####[facility] [address] [place], [address] GLU Normal 70-99 [facility] Comment on above: Result Comment: Canc elled via OM: Order cancelled - Patient discharged Performed By: #### L 100.0100, L500.2500 ####[facility] [address] [place], [address] Potassium Normal 3.5-5.1 [facility] Comment on above: Result Comment: Canc elled via OM: Order cancelled - Patient discharged Performed By: #### L 100.0100, L500.2500 ####[facility] [address] [place], [address] Basic Metabolic Profile (BMP) Normal 136-145 [facility] Comment on above: Result Comment: Canc elled via OM: Order cancelled - Patient discharged Performed By: #### L 100.0100, L500.2500 ####[facility] [address] [place], [address] CBC W/Diff, Automatedon 03-0 Absolute Neut Normal 2.0-7.7 [facility] Comment on above: Result Comment: Canc elled via OM: Order cancelled - Patient discharged Performed By: #### L 100.0100, L500.2500 ####[facility] [address] [place], [address] HCT Normal 40-54 [facility] Comment on above: Result Comment: Canc elled via OM: Order cancelled - Patient discharged Performed By: #### L 100.0100, L500.2500 ####[facility] [address] [place], [address] HGB Normal 13.0-16.5 [facility] Comment on above: Result Comment: Canc elled via OM: Order cancelled - Patient discharged Performed By: #### L 100.0100, L500.2500 ####[facility] [address] [place], [address] MCH Normal 27.0-32.0 [facility] Comment on above: Result Comment: Canc elled via OM: Order cancelled - Patient discharged Performed By: #### L 100.0100, L500.2500 ####[facility] [address] [place], [address] MCHC Normal 32-36 [facility] Comment on above: Result Comment: Canc elled via OM: Order cancelled - Patient discharged Performed By: #### L 100.0100, L500.2500 ####[facility] [address] [place], [address] MCV Normal 80-94 [facility] Comment on above: Result Comment: Canc elled via OM: Order cancelled - Patient discharged Performed By: #### L 100.0100, L500.2500 ####[facility] [address] [place], [address] NEUT% Normal 47-70 [facility] Comment on above: Result Comment: Canc elled via OM: Order cancelled - Patient discharged Performed By: #### L 100.0100, L500.2500 ####[facility] [address] [place], [address] PLT Normal 150-450 [facility] Comment on above: Result Comment: Canc elled via OM: Order cancelled - Patient discharged Performed By: #### L 100.0100, L500.2500 ####[facility] [address] [place], [address] RBC Normal 4.6-6.2 [facility] Comment on above: Result Comment: Canc elled via OM: Order cancelled - Patient discharged Performed By: #### L 100.0100, L500.2500 ####[facility] [address] [place], [address] RDW CV Normal 11.6-14.6 [facility] Comment on above: Result Comment: Canc elled via OM: Order cancelled - Patient discharged Performed By: #### L 100.0100, L500.2500 ####[facility] [address] [place], [address] RDW SD Normal 35.1-43.9 [facility] Comment on above: Result Comment: Canc elled via OM: Order cancelled - Patient discharged Performed By: #### L 100.0100, L500.2500 ####[facility] [address] [place], [address] WBC Normal 4.4-11.0 [facility] Comment on above: Result Comment: Canc elled via OM: Order cancelled - Patient discharged Performed By: #### L 100.0100, L500.2500 ####[facility] [address] [place], [address] Prothrombin Time w/INRon INR Normal [facility] Comment on above: Result Comment: Canc elled via OM: Order cancelled - Patient discharged Performed By: #### L 300.3900 ####[facility] [address] [place], [address] PROTIME Normal 11.7-14.9 [facility] Comment on above: Result Comment: Canc elled via OM: Order cancelled - Patient discharged Performed By: #### L 300.3900 ####[facility] [address] [place], [address] Absolute lymphocyte countOrd ered By: Eliane [place] on 12-12-2024 Lymphocytes Auto (Unsp spec) [#/Vol] 1.24 10*3/uL 0.83-4.51 [facility] Absolute neutrophil countOrd ered By: Eliane Benson on 12-12-2024 Neutrophils (Bld) [#/Vol] 3.9 10*3/uL 2.0-7.7 [facility] Anion gap in Serum or Plasma Ordered By: Eliane Benson on 12-12-2024 Anion gap [Moles/Vol] 10 mmol/L 5-15 [facility] Automated lymphocyte count a s percentage of total leukocytesOrdered By: Eliane Benson on 12-12-2024 Lymphocytes/100 WBC Auto (Unsp spec) 20.0 % - [facility] BUN/creatinine ratioOrdered By: Eliane Benson on 12-12-2024 Urea nitrogen/Creatinine [Mass ratio] 27.5 mg/mg High 10- [facility] Basic Metabolic Profile (BMP )on 12-12-2024 BUN/CRE 27.5 RATIO High 10 [facility] Comment on above: Performed By: #### L 100.0100, L500.2500 ####[facility] [address] [place], [address] Calcium [Mass/Vol] 8.5 mg/dL Normal 7.6-11.0 [facility] Comment on above: Performed By: #### L 100.0100, L500.2500 ####[facility] [address] [place], [address] Chloride [Moles/Vol] 104 mmol/L Normal 98-108 [facility] Comment on above: Performed By: #### L 100.0100, L500.2500 ####[facility] [address] [place], [address] CO2 [Moles/Vol] 24.7 mmol/L Normal 21.0-32.0 [facility] Comment on above: Performed By: #### L 100.0100, L500.2500 ####[facility] [address] [place], [address] Creatinine [Mass/Vol] 0.70 mg/dL Normal 0.70-1.20 [facility] Comment on above: Performed By: #### L 100.0100, L500.2500 ####[facility] [address] [place], [address] ECRCL 105.65 ml/min Normal 50-250 [facility] Comment on above: Performed By: #### L 100.0100, L500.2500 ####[facility] [address] [place], [address] GAP 10 Normal 5-15 [facility] Comment on above: Performed By: #### L 100.0100, L500.2500 ####[facility] [address] [place], [address] GFR/1.73 sq M.predicted among non-blacks MDRD (S/P/Bld) [Vol rate/Area] 101 mL/min/{1.73_m2} Normal >60 [facility] Comment on above: Result Comment: mL/m in/1.73m2 CKD-EPI Creatinine Equation (2020) Performed By: #### L 100.0100, L500.2500 ####[facility] [address] [place], [address] Glucose [Mass/Vol] 101 mg/dL High 70-99 [facility] Comment on above: Performed By: #### L 100.0100, L500.2500 ####[facility] [address] [place], [address] Potassium [Moles/Vol] 3.5 mmol/L Normal 3.3-5.1 [facility] Comment on above: Performed By: #### L 100.0100, L500.2500 ####[facility] [address] [place], [address] Sodium [Moles/Vol] 139 mmol/L Normal 133-145 [facility] Comment on above: Performed By: #### L 100.0100, L500.2500 ####[facility] [address] [place], [address] Urea nitrogen [Mass/Vol] 19 mg/dL Normal 4-19 [facility] Comment on above: Performed By: #### L 100.0100, L500.2500 ####[facility] [address] [place], [address] Basophil percentageOrdered B y: Eliane Kelley on 12-12-2024 Basophils/100 WBC (Bld) 0.6 % 0-1 [facility] CBC W/Diff, Automatedon Absolute Lymph 1.24 X10 3/uL Normal 0.83-4.51 [facility] Comment on above: Performed By: #### L 100.0100, L500.2500 ####[facility] [address] [place], [address] Absolute Neut 3.9 X10 3/uL Normal 2.0-7.7 [facility] Comment on above: Performed By: #### L 100.0100, L500.2500 ####[facility] [address] [place], [address] Basophils/100 WBC (Bld) 0.6 % Normal 0-1 [facility] Comment on above: Performed By: #### L 100.0100, L500.2500 ####[facility] [address] [place], [address] Eosinophils/100 WBC (Bld) 4.4 % Normal 0-5 [facility] Comment on above: Performed By: #### L 100.0100, L500.2500 ####[facility] [address] [place], [address] Erythrocyte distribution width (RBC) [Ratio] 14.7 % High 11.6-14.6 [facility] Comment on above: Performed By: #### L 100.0100, L500.2500 ####[facility] [address] [place], [address] Hematocrit (Bld) [Volume fraction] 33.8 % Low 40-54 [facility] Comment on above: Performed By: #### L 100.0100, L500.2500 ####[facility] [address] [place], [address] Hemoglobin (Bld) [Mass/Vol] 11.1 g/dL Low 13.0-16.5 [facility] Comment on above: Performed By: #### L 100.0100, L500.2500 ####[facility] [address] [place], [address] IG% 0.600 Normal 0.0-0.9 [facility] Comment on above: Result Comment: IG% - Immature Granulocytes (promyelocytes, myelocytes andmetamyelocytes) > 1% indicates that a LEFT SHIFT is Present. Performed By: #### L 100.0100, L500.2500 ####[facility] [address] [place], [address] Lymphocytes/100 WBC (Bld) 20.0 % Normal 19-41 [facility] Comment on above: Performed By: #### L 100.0100, L500.2500 ####[facility] [address] [place], [address] MCH (RBC) [Entitic mass] 30.9 pg Normal 27.0-32.0 [facility] Comment on above: Performed By: #### L 100.0100, L500.2500 ####[facility] [address] [place], [address] MCHC (RBC) [Mass/Vol] 32.8 g/dL Normal 32-36 [facility] Comment on above: Performed By: #### L 100.0100, L500.2500 ####[facility] [address] [place], [address] MCV (RBC) [Entitic vol] 94.2 fL High 80-94 [facility] Comment on above: Performed By: #### L 100.0100, L500.2500 ####[facility] [address] [place], [address] Monocytes/100 WBC (Bld) 12.1 % High 0-10 [facility] Comment on above: Performed By: #### L 100.0100, L500.2500 ####[facility] [address] [place], [address] Neutrophils/100 WBC (Bld) 62.3 % Normal 47-70 [facility] Comment on above: Performed By: #### L 100.0100, L500.2500 ####[facility] [address] [place], [address] Nucleated RBC (Bld) [#/Vol] 0 10*3/uL Normal 0-5 [facility] Comment on above: Performed By: #### L 100.0100, L500.2500 ####[facility] [address] [place], [address] Platelet mean volume (Bld) [Entitic vol] 9.0 fL Normal 6.2-12.0 [facility] Comment on above: Performed By: #### L 100.0100, L500.2500 ####[facility] [address] [place], [address] Platelets (Bld) [#/Vol] 464 10*3/uL High 150-450 [facility] Comment on above: Performed By: #### L 100.0100, L500.2500 ####[facility] [address] [place], [address] RBC (Bld) [#/Vol] 3.59 10*6/uL Low 4.6-6.2 [facility] Comment on above: Performed By: #### L 100.0100, L500.2500 ####[facility] [address] [place], [address] RDW SD 50.9 fl High 35.1-43.9 [facility] Comment on above: Performed By: #### L 100.0100, L500.2500 ####[facility] [address] [place], [address] WBC (Bld) [#/Vol] 6.2 10*3/uL Normal 4.4-11.0 [facility] Comment on above: Performed By: #### L 100.0100, L500.2500 ####[facility] [address] [place], [address] Carbon dioxide, total [Moles /volume] in Central venous bloodOrdered By: Eliane Benson on 12-12-2024 CO2 [Moles/Vol] 24.7 mmol/L 21.0-32.0 [facility] Chloride assayOrdered By: Anu [place] on 12-12-2024 Chloride [Moles/Vol] 104 mmol/L 98-108 [facility] Culture, Blood (WB)on 2024 [facility] Blood cultures x2, from two different sites No growth in 5 days. Normal [facility] Comment on above: Performed By: #### M 200.1000 ####[facility] [address] [place], [address] Discharge Instructionon 03-0 Discharge Instruction Normal [facility] Eosinophil percentageOrdered By: Eliane Benson on 12-12-2024 Eosinophils/100 WBC (Bld) 4.4 % 0-5 [facility] Erythrocyte distribution wid th ratioOrdered By: Eliane Benson on 12-12-2024 Erythrocyte distribution width (RBC) [Ratio] 14.7 % High 11.6-14.6 [facility] Erythrocyte distribution wid th standard deviationOrdered By: Eliane Benson on 12-12-2024 Erythrocyte distribution width (RBC) [Entitic vol] 50.9 fL High 35.1-43.9 [facility] Erythrocyte distribution width (RBC) [Ratio] 50.9 fl High 35.1-43.9 [facility] Estimation of creatinine carlos aranceOrdered By: Eliane Benson on 12-12-2024 Estimated Creatinine Clearance Calc 105.65 ml/min 50-250 [facility] GFR/1.73 sq M.predicted nathan g non-blacks MDRD (S/P/Bld) [Vol rate/Area]Ordered By: Eliane Benson on 12-12-2024 Estimated GFR (MDRD) Non-Af Amer 101 >60 [facility] Comment on above: mL/min/1.73m2 CKD-EP I Creatinine Equation (2020) Glomerular filtration rate ( GFR) estimation/1.73 sq m using serum, plasma, or whole bOrdered By: Eliane Benson on 12-12-2024 GFR/1.73 sq M.predicted among non-blacks MDRD (S/P/Bld) [Vol rate/Area] 101 mL/min/{1.73_m2} >60 [facility] Comment on above: mL/min/1.73m2 CKD-EP I Creatinine Equation (2020) Hematocrit Auto (Bld) [Volum e fraction]Ordered By: Eliane Benson on 12-12-2024 Hematocrit (Bld) [Volume fraction] 33.8 % Low 40-54 [facility] Hemoglobin measurementOrdere d By: Eliane Benson on 12-12-2024 Hemoglobin (Bld) [Mass/Vol] 11.1 g/dL Low 13.0-16.5 [facility] Immature granulocytes/100 WB C Auto (Bld)Ordered By: Eliane Benson on 12-12-2024 Immature granulocytes/100 WBC (Bld) 0.600 % 0.0-0.9 [facility] Comment on above: IG% - Immature Granu locytes (promyelocytes, myelocytes and metamyelocytes) > 1% indicates that a LEFT SHIFT is Present. International normalized rat io (INR) calculationOrdered By: Inocencia Kruger on 12-12-2024 INR Coag (Bld) [Relative time] 1.8 {INR} [facility] Lymphocytes Auto (Unsp spec) [#/Vol]Ordered By: Eliane Benson on 12-12-2024 Lymphocytes (Bld) [#/Vol] 1.24 10*3/uL 0.83-4.5 1 [facility] Lymphocytes/100 WBC Auto (Un sp spec)Ordered By: Eliane Benson on 12-12-2024 Lymphocytes/100 WBC (Bld) 20.0 % 19-41 [facility] MCV (mean corpuscular volume ) determinationOrdered By: Eliane Benson on 12-12-2024 MCV (RBC) [Entitic vol] 94.2 fL High 80-94 [facility] Mean corpuscular hemoglobin (MCH) determinationOrdered By: Eliane Benson on 12-12-2024 MCH (RBC) [Entitic mass] 30.9 pg 27.0-32.0 [facility] Mean corpuscular hemoglobin concentration (MCHC) determinationOrdered By: Eliane Benson on 12-12-2024 MCHC (RBC) [Mass/Vol] 32.8 g/dL 32-36 [facility] Mean platelet volume determi nationOrdered By: Eliane Benson on 12-12-2024 Platelet mean volume (Bld) [Entitic vol] 9.0 fL 6.2-12.0 [facility] Monocyte percentageOrdered B y: Eliane Benson on 12-12-2024 Monocytes/100 WBC (Bld) 12.1 % High 0-10 [facility] Neutrophil percentageOrdered By: Eliane Benson on 12-12-2024 Neutrophils/100 WBC (Bld) 62.3 % 47-70 [facility] Nucleated red blood cell per centageOrdered By: Eliane Benson on 12-12-2024 Nucleated RBC/100 WBC (Bld) [Ratio] 0 % 0-5 [facility] Platelet countOrdered By: Anu Benson on 12-12-2024 Platelets (Bld) [#/Vol] 464 10*3/uL High 150-450 [facility] Potassium (Unsp spec) [Mass/ Vol]Ordered By: Eliane Benson on 12-12-2024 Potassium [Moles/Vol] 3.5 mmol/L 3.3-5.1 [facility] Potassium measurement (mass/ volume)Ordered By: Eliane Benson on 12-12-2024 Potassium (Unsp spec) [Mass/Vol] 3.5 mmol/L 3.3-5.1 [facility] Prothrombin Time w/INRon INR Coag (PPP) [Relative time] 1.8 {INR} Normal [facility] Comment on above: Performed By: #### L 300.3900 ####[facility] [address] [place], [place], [id number] PT Coag (PPP) [Time] 21.1 s High 11.7-14.9 [facility] Comment on above: Performed By: #### L 300.3900 ####[facility] [address] [place], [address] Prothrombin timeOrdered By: Inocencia Kruger on 12-12-2024 PT Coag (PPP) [Time] 21.1 s High 11.7-14.9 [facility] RBC Auto (Bld) [#/Vol]Ordere d By: Eliane Benson on 12-12-2024 RBC (Bld) [#/Vol] 3.59 10*6/uL Low 4.6-6.2 [facility] Serum creatinine measurement (mass/volume)Ordered By: Eliane Benson on 12-12-2024 Creatinine [Mass/Vol] 0.70 mg/dL 0.70-1.20 [facility] Serum glucose measurement (m ass/volume)Ordered By: Eliane Benson on 12-12-2024 Glucose [Mass/Vol] 101 mg/dL High 70-99 [facility] Serum or plasma calcium toan urement (mass/volume)Ordered By: Eliane Benson on 12-12-2024 Calcium [Mass/Vol] 8.5 mg/dL 7.6-11.0 [facility] Serum or plasma urea nitroge n measurement (mass/volume)Ordered By: Eliane Benson on 12-12-2024 Urea nitrogen [Mass/Vol] 19 mg/dL 4-19 [facility] Sodium levelOrdered By: Elianehuy Benson on 12-12-2024 Sodium [Moles/Vol] 139 mmol/L 133-145 [facility] White blood cell (WBC) count Ordered By: Eliane Benson on 12-12-2024 WBC (Bld) [#/Vol] 6.2 10*3/uL 4.4-11.0 [facility] Basic Metabolic Profile (BMP )on 12-11-2024 BUN/CRE 29.5 RATIO High 10-20 [facility] Comment on above: Performed By: #### L 500.2500, L100.0100 ####[facility] [address] [place], [address] Calcium [Mass/Vol] 8.5 mg/dL Normal 7.6-11.0 [facility] Comment on above: Performed By: #### L 500.2500, L100.0100 ####[facility] [address] [place], [address] Chloride [Moles/Vol] 103 mmol/L Normal 98-108 [facility] Comment on above: Performed By: #### L 500.2500, L100.0100 ####[facility] [address] [place], [address] CO2 [Moles/Vol] 24.7 mmol/L Normal 21.0-32.0 [facility] Comment on above: Performed By: #### L 500.2500, L100.0100 ####[facility] [address] [place], [address] Creatinine [Mass/Vol] 0.62 mg/dL Low 0.70-1.20 [facility] Comment on above: Performed By: #### L 500.2500, L100.0100 ####[facility] [address] [place], [address] ECRCL 107.32 ml/min Normal 50-250 [facility] Comment on above: Performed By: #### L 500.2500, L100.0100 ####[facility] [address] [place], [address] GAP 11 Normal 5-15 [facility] Comment on above: Performed By: #### L 500.2500, L100.0100 ####[facility] [address] [place], [address] GFR/1.73 sq M.predicted among non-blacks MDRD (S/P/Bld) [Vol rate/Area] 105 mL/min/{1.73_m2} Normal >60 [facility] Comment on above: Result Comment: mL/m in/1.73m2 CKD-EPI Creatinine Equation (2020) Performed By: #### L 500.2500, L100.0100 ####[facility] [address] [place], [address] Glucose [Mass/Vol] 92 mg/dL Normal 70-99 [facility] Comment on above: Performed By: #### L 500.2500, L100.0100 ####[facility] [address] [place], [address] Potassium [Moles/Vol] 3.7 mmol/L Normal 3.3-5.1 [facility] Comment on above: Performed By: #### L 500.2500, L100.0100 ####[facility] [address] [place], [address] Sodium [Moles/Vol] 139 mmol/L Normal 133-145 [facility] Comment on above: Performed By: #### L 500.2500, L100.0100 ####[facility] [address] [place], [address] Urea nitrogen [Mass/Vol] 18 mg/dL Normal 4-19 [facility] Comment on above: Performed By: #### L 500.2500, L100.0100 ####[facility] [address] [place], [address] CBC W/Diff, Automatedon 03-0 -2024 Absolute Lymph 1.26 X10 3/uL Normal 0.83-4.51 [facility] Comment on above: Performed By: #### L 500.2500, L100.0100 ####[facility] [address] [place], [address] Absolute Neut 3.7 X10 3/uL Normal 2.0-7.7 [facility] Comment on above: Performed By: #### L 500.2500, L100.0100 ####[facility] [address] [place], [address] Basophils/100 WBC (Bld) 0.8 % Normal 0-1 [facility] Comment on above: Performed By: #### L 500.2500, L100.0100 ####[facility] [address] [place], [address] Eosinophils/100 WBC (Bld) 6.1 % High 0-5 [facility] Comment on above: Performed By: #### L 500.2500, L100.0100 ####[facility] [address] [place], [address] Erythrocyte distribution width (RBC) [Ratio] 14.7 % High 11.6-14.6 [facility] Comment on above: Performed By: #### L 500.2500, L100.0100 ####[facility] [address] [place], [address] Hematocrit (Bld) [Volume fraction] 34.5 % Low 40-54 [facility] Comment on above: Performed By: #### L 500.2500, L100.0100 ####[facility] [address] [place], [address] Hemoglobin (Bld) [Mass/Vol] 11.3 g/dL Low 13.0-16.5 [facility] Comment on above: Performed By: #### L 500.2500, L100.0100 ####[facility] [address] [place], [address] IG% 0.800 Normal 0.0-0.9 [facility] Comment on above: Result Comment: IG% - Immature Granulocytes (promyelocytes, myelocytes andmetamyelocytes) > 1% indicates that a LEFT SHIFT is Present. Performed By: #### L 500.2500, L100.0100 ####[facility] [address] [place], [address] Lymphocytes/100 WBC (Bld) 20.8 % Normal 19-41 [facility] Comment on above: Performed By: #### L 500.2500, L100.0100 ####[facility] [address] [place], [address] MCH (RBC) [Entitic mass] 30.9 pg Normal 27.0-32.0 [facility] Comment on above: Performed By: #### L 500.2500, L100.0100 ####[facility] [address] [place], [address] MCHC (RBC) [Mass/Vol] 32.8 g/dL Normal 32-36 [facility] Comment on above: Performed By: #### L 500.2500, L100.0100 ####[facility] [address] [place], [address] MCV (RBC) [Entitic vol] 94.3 fL High 80-94 [facility] Comment on above: Performed By: #### L 500.2500, L100.0100 ####[facility] [address] [place], [address] Monocytes/100 WBC (Bld) 10.7 % High 0-10 [facility] Comment on above: Performed By: #### L 500.2500, L100.0100 ####[facility] [address] [place], [address] Neutrophils/100 WBC (Bld) 60.8 % Normal 47-70 [facility] Comment on above: Performed By: #### L 500.2500, L100.0100 ####[facility] [address] [place], [address] Nucleated RBC (Bld) [#/Vol] 0 10*3/uL Normal 0-5 [facility] Comment on above: Performed By: #### L 500.2500, L100.0100 ####[facility] [address] [place], [address] Platelet mean volume (Bld) [Entitic vol] 9.2 fL Normal 6.2-12.0 [facility] Comment on above: Performed By: #### L 500.2500, L100.0100 ####[facility] [address] [place], [address] Platelets (Bld) [#/Vol] 489 10*3/uL High 150-450 [facility] Comment on above: Performed By: #### L 500.2500, L100.0100 ####[facility] [address] [place], [address] RBC (Bld) [#/Vol] 3.66 10*6/uL Low 4.6-6.2 [facility] Comment on above: Performed By: #### L 500.2500, L100.0100 ####[facility] [address] [place], [address] RDW SD 50.2 fl High 35.1-43.9 [facility] Comment on above: Performed By: #### L 500.2500, L100.0100 ####[facility] [address] [place], [address] WBC (Bld) [#/Vol] 6.1 10*3/uL Normal 4.4-11.0 [facility] Comment on above: Performed By: #### L 500.2500, L100.0100 ####[facility] [address] [place], [address] Discharge Instructionon -0 Discharge Instruction Normal [facility] Prothrombin Time w/INRon INR Coag (PPP) [Relative time] 1.9 {INR} Normal [facility] Comment on above: Performed By: #### L 300.3900 ####[facility] [address] [place], [address] PT Coag (PPP) [Time] 21.7 s High 11.7-14.9 [facility] Comment on above: Performed By: #### L 300.3900 ####[facility] [address] [place], [address] Trough vancomycin levelOrder ed By: Esme Rivera on 12-11-2024 Vancomycin trough [Mass/Vol] 17.9 ug/mL High 5.0-15.0 [facility] Comment on above: Recommended goal tro ugh ranges are generally 10-15 mcg/ml for less severe/complicated infections such as cellulitis or UTI and 15-20 mcg/ml for more severe/complicated infections such as bacteremia/sepsis, osteomyelitis, pneumonia or meningitis. Goal trough ranges should take into account indication, patient-specific factors and organism BAIRON.VANCOMYCIN STANDARED DRUG THERAPY TROUGH LEVEL: 5.0 - 15.0 mg/L VANCOMYCIN HIGH INTENSITY THERAPY TROUGH LEVEL: 15.0 - 20.0 mg/L High Intensity therapy recommended for serious lifethreatening infections include:- Vvnmfdlpjw-Uafycdfduxbf-Nsopvpeyw (Ventilator/[employer])-Sepsis PLEASE CONTACT PHARMACY SERVICES (#[id number]) FOR INTERPRETATIONOF RESULTS. Vancomycin trough [Mass/Vol] Ordered By: Esme Rivera on 12-11-2024 Vancomycin Level Trough 17.9 ug/mL High 5.0-15.0 [facility] Comment on above: Recommended goal tro ugh ranges are generally 10-15 mcg/ml for less severe/complicated infections such as cellulitis or UTI and 15-20 mcg/ml for more severe/complicated infections such as bacteremia/sepsis, osteomyelitis, pneumonia or meningitis. Goal trough ranges should take into account indication, patient-specific factors and organism BAIRON.VANCOMYCIN STANDARED DRUG THERAPY TROUGH LEVEL: 5.0 - 15.0 mg/L VANCOMYCIN HIGH INTENSITY THERAPY TROUGH LEVEL: 15.0 - 20.0 mg/L High Intensity therapy recommended for serious lifethreatening infections include:- Mennnrhssv-Ipnusbnqifid-Ckiajilvd (Ventilator/Healtcare Associated)-Sepsis PLEASE CONTACT PHARMACY SERVICES (#2095) FOR INTERPRETATIONOF RESULTS. Vancomycin, Trough Levelon 0 12-11-2024 VANCO, TROUGH 17.9 ug/mL High 5.0-15.0 [facility] Comment on above: Order Comment: Comme nts: DRAW 30 MIN PRIOR TO [id number] Result Comment: Niko mmended goal trough ranges are generally 10-15 mcg/mlfor less severe/complicated infections such as cellulitisor UTI and 15-20 mcg/ml for more severe/complicatedinfections such as bacteremia/sepsis, osteomyelitis,pneumonia or meningitis. Goal trough ranges should takeinto account indication, patient-specific factors andorganism BAIRON.VANCOMYCIN STANDARED DRUG THERAPY TROUGH LEVEL: 5.0 - 15.0 mg/LVANCOMYCIN HIGH INTENSITY THERAPY TROUGH LEVEL: 15.0 - 20.0 mg/LHigh Intensity therapy recommended for serious lifethreatening infections include:- Fmqixgocbw-Corqnkaknoad-Kjsolndmq (Ventilator/Healtcare Associated)-SepsisPLEASE CONTACT PHARMACY SERVICES (#0121) FOR INTERPRETATIONOF RESULTS. Performed By: #### L 501.8858 ####[facility] [address] [place], [address] Basic Metabolic Profile (BMP )on 12-10-2024 Anion gap [Moles/Vol] 10 mmol/L Normal 5-15 [facility] Comment on above: Performed By: #### L 100.0100, L500.2500 ####[facility] [address] [place], [address] BUN/CRE 28.4 RATIO High 10-20 [facility] Comment on above: Performed By: #### L 100.0100, L500.2500 ####[facility] [address] [place], [address] Calcium [Mass/Vol] 8.4 mg/dL Normal 7.6-11.0 [facility] Comment on above: Performed By: #### L 100.0100, L500.2500 ####[facility] [address] [place], [address] CO2 [Moles/Vol] 25.0 mmol/L Normal 22.0-29.0 [facility] Comment on above: Performed By: #### L 100.0100, L500.2500 ####[facility] [address] [place], [address] Creatinine [Mass/Vol] 0.64 mg/dL Low 0.70-1.20 [facility] Comment on above: Performed By: #### L 100.0100, L500.2500 ####[facility] [address] [place], [address] ECRCL 107.27 ml/min Normal 50-250 [facility] Comment on above: Performed By: #### L 100.0100, L500.2500 ####[facility] [address] [place], [address] GFR/1.73 sq M.predicted among non-blacks MDRD (S/P/Bld) [Vol rate/Area] 104 mL/min/{1.73_m2} Normal >60 [facility] Comment on above: Result Comment: mL/m in/1.73m2 CKD-EPI Creatinine Equation (2020) Performed By: #### L 100.0100, L500.2500 ####[facility] [address] [place], [address] Glucose [Mass/Vol] 95 mg/dL Normal 70-99 [facility] Comment on above: Performed By: #### L 100.0100, L500.2500 ####[facility] [address] [place], [address] Potassium [Moles/Vol] 3.6 mmol/L Normal 3.3-5.1 [facility] Comment on above: Performed By: #### L 100.0100, L500.2500 ####[facility] [address] [place], [address] Sodium [Moles/Vol] 137 mmol/L Normal 133-145 [facility] Comment on above: Performed By: #### L 100.0100, L500.2500 ####[facility] [address] [place], [address] Urea nitrogen [Mass/Vol] 18 mg/dL Normal 4-19 [facility] Comment on above: Performed By: #### L 100.0100, L500.2500 ####[facility] [address] [place], [address] CBC W/Diff, Automatedon 03-0 3-2024 Absolute Lymph 1.49 X10 3/uL Normal 0.83-4.51 [facility] Comment on above: Performed By: #### L 100.0100, L500.2500 ####[facility] [address] [place], [address] Absolute Neut 3.8 X10 3/uL Normal 2.0-7.7 [facility] Comment on above: Performed By: #### L 100.0100, L500.2500 ####[facility] [address] [place], [address] Basophils/100 WBC (Bld) 0.6 % Normal 0-1 [facility] Comment on above: Performed By: #### L 100.0100, L500.2500 ####[facility] [address] [place], [address] Eosinophils/100 WBC (Bld) 6.8 % High 0-5 [facility] Comment on above: Performed By: #### L 100.0100, L500.2500 ####[facility] [address] [place], [address] Erythrocyte distribution width (RBC) [Ratio] 14.6 % Normal 11.6-14.6 [facility] Comment on above: Performed By: #### L 100.0100, L500.2500 ####[facility] [address] [place], [address] Hematocrit (Bld) [Volume fraction] 35.2 % Low 40-54 [facility] Comment on above: Performed By: #### L 100.0100, L500.2500 ####[facility] [address] [place], [address] Hemoglobin (Bld) [Mass/Vol] 11.3 g/dL Low 13.0-16.5 [facility] Comment on above: Performed By: #### L 100.0100, L500.2500 ####[facility] [address] [place], [address] IG% 0.900 Normal 0.0-0.9 [facility] Comment on above: Result Comment: IG% - Immature Granulocytes (promyelocytes, myelocytes andmetamyelocytes) > 1% indicates that a LEFT SHIFT is Present. Performed By: #### L 100.0100, L500.2500 ####[facility] [address] [place], [address] Lymphocytes/100 WBC (Bld) 23.0 % Normal 19-41 [facility] Comment on above: Performed By: #### L 100.0100, L500.2500 ####[facility] [address] [place], [address] MCH (RBC) [Entitic mass] 30.4 pg Normal 27.0-32.0 [facility] Comment on above: Performed By: #### L 100.0100, L500.2500 ####[facility] [address] [place], [address] MCHC (RBC) [Mass/Vol] 32.1 g/dL Normal 32-36 [facility] Comment on above: Performed By: #### L 100.0100, L500.2500 ####[facility] [address] [place], [address] MCV (RBC) [Entitic vol] 94.6 fL High 80-94 [facility] Comment on above: Performed By: #### L 100.0100, L500.2500 ####[facility] [address] [place], [address] Monocytes/100 WBC (Bld) 10.7 % High 0-10 [facility] Comment on above: Performed By: #### L 100.0100, L500.2500 ####[facility] [address] [place], [address] Neutrophils/100 WBC (Bld) 58.0 % Normal 47-70 [facility] Comment on above: Performed By: #### L 100.0100, L500.2500 ####[facility] [address] [place], [address] Nucleated RBC (Bld) [#/Vol] 0 10*3/uL Normal 0-5 [facility] Comment on above: Performed By: #### L 100.0100, L500.2500 ####[facility] [address] [place], [address] Platelet mean volume (Bld) [Entitic vol] 9.4 fL Normal 6.2-12.0 [facility] Comment on above: Performed By: #### L 100.0100, L500.2500 ####[facility] [address] [place], [address] Platelets (Bld) [#/Vol] 454 10*3/uL High 150-450 [facility] Comment on above: Performed By: #### L 100.0100, L500.2500 ####[facility] [address] [place], [address] RBC (Bld) [#/Vol] 3.72 10*6/uL Low 4.6-6.2 [facility] Comment on above: Performed By: #### L 100.0100, L500.2500 ####[facility] [address] [place], [address] RDW SD 50.9 fl High 35.1-43.9 [facility] Comment on above: Performed By: #### L 100.0100, L500.2500 ####[facility] [address] [place], [address] WBC (Bld) [#/Vol] 6.5 10*3/uL Normal 4.4-11.0 [facility] Comment on above: Performed By: #### L 100.0100, L500.2500 ####[facility] [address] [place], [address] Chloride measurementOrdered By: Eliane Benson on 12-10-2024 Chloride [Moles/Vol] 103 mmol/L Normal 96-108 [facility] Comment on above: Performed By: #### L 100.0100, L500.2500 ####[facility] [address] [place], [place], [address] Consultation - Surgicalon Consultation - Surgical Normal [facility] Prothrombin Time w/INRon INR Coag (PPP) [Relative time] 2.2 {INR} Normal [facility] Comment on above: Performed By: #### L 300.3900 ####[facility] [address] [place], [address] PT Coag (PPP) [Time] 24.6 s High 11.7-14.9 [facility] Comment on above: Performed By: #### L 300.3900 ####[facility] [address] [place], [place], [id number] Serum or plasma vancomycin m easurement (mass/volume)Ordered By: Esme Rivera on 12-10-2024 Vancomycin [Mass/Vol] 12.2 ug/mL 0.0-15.0 [facility] Comment on above: VANCOMYCIN STANDARD DRUG THERAPY: CRITICAL VALUE IS > 15.0 mg/L VANCOMYCIN HIGH INTENSITY THERAPY: CRITICAL VALUE IS > 20.0 mg/L PLEASE CONTACT PHARMACY SERVICES (#5294) FOR INTERPRETATIONOF RESULTS. THIS RESULT DOES NOT REPRESENT A PEAK OR TROUGHLEVEL FOR THIS DRUG. Vancomycin [Mass/Vol]Ordered By: Esme Rivera on 12-10-2024 Random Vancomycin Level 12.2 ug/mL 0.0-15.0 [facility] Comment on above: VANCOMYCIN STANDARD DRUG THERAPY: CRITICAL VALUE IS > 15.0 mg/L VANCOMYCIN HIGH INTENSITY THERAPY: CRITICAL VALUE IS > 20.0 mg/L PLEASE CONTACT PHARMACY SERVICES (#2148) FOR INTERPRETATIONOF RESULTS. THIS RESULT DOES NOT REPRESENT A PEAK OR TROUGHLEVEL FOR THIS DRUG. Vancomycin, Random Levelon 0 12-10-2024 VANCO, RANDOM 12.2 ug/mL Normal 0.0-15.0 [facility] Comment on above: Result Comment: VANC OMYCIN STANDARD DRUG THERAPY: CRITICAL VALUE IS > 15.0 mg/LVANCOMYCIN HIGH INTENSITY THERAPY: CRITICAL VALUE IS > 20.0 mg/LPLEASE CONTACT PHARMACY SERVICES (#2738) FOR INTERPRETATIONOF RESULTS. THIS RESULT DOES NOT REPRESENT A PEAK OR TROUGHLEVEL FOR THIS DRUG. Performed By: #### L 501.8850 ####[facility] [address] [place], [address] Wound Cultureon 12-10-2024 WC Normal [facility] Comment on above: Performed By: #### M 100.2000, M8200.1075, M100.3000 ####[facility] [address] [place], [address] Basic Metabolic Profile (BMP )on 12-09-2024 Anion gap [Moles/Vol] 9 mmol/L Normal 5-15 [facility] Comment on above: Performed By: #### L 100.0100, L500.2500 ####[facility] [address] [place], [address] BUN/CRE 26.8 RATIO High 10-20 [facility] Comment on above: Performed By: #### L 100.0100, L500.2500 ####[facility] [address] [place], [address] Calcium [Mass/Vol] 8.7 mg/dL Normal 7.6-11.0 [facility] Comment on above: Performed By: #### L 100.0100, L500.2500 ####[facility] [address] [place], [address] Chloride [Moles/Vol] 105 mmol/L Normal 96-108 [facility] Comment on above: Performed By: #### L 100.0100, L500.2500 ####[facility] [address] [place], [address] CO2 [Moles/Vol] 25.1 mmol/L Normal 22.0-29.0 [facility] Comment on above: Performed By: #### L 100.0100, L500.2500 ####[facility] [address] [place], [address] Creatinine [Mass/Vol] 0.71 mg/dL Normal 0.70-1.20 [facility] Comment on above: Performed By: #### L 100.0100, L500.2500 ####[facility] [address] [place], [address] ECRCL 107.27 ml/min Normal 50-250 [facility] Comment on above: Performed By: #### L 100.0100, L500.2500 ####[facility] [address] [place], [address] GFR/1.73 sq M.predicted among non-blacks MDRD (S/P/Bld) [Vol rate/Area] 101 mL/min/{1.73_m2} Normal >60 [facility] Comment on above: Result Comment: mL/m in/1.73m2 CKD-EPI Creatinine Equation (2020) Performed By: #### L 100.0100, L500.2500 ####[facility] [address] [place], [address] Glucose [Mass/Vol] 126 mg/dL High 70-99 [facility] Comment on above: Performed By: #### L 100.0100, L500.2500 ####[facility] [address] [place], [address] Potassium [Moles/Vol] 3.8 mmol/L Normal 3.3-5.1 [facility] Comment on above: Performed By: #### L 100.0100, L500.2500 ####[facility] [address] [place], [address] Sodium [Moles/Vol] 138 mmol/L Normal 133-145 [facility] Comment on above: Performed By: #### L 100.0100, L500.2500 ####[facility] [address] [place], [address] Urea nitrogen [Mass/Vol] 19 mg/dL Normal 4-19 [facility] Comment on above: Performed By: #### L 100.0100, L500.2500 ####[facility] [address] [place], [address] CBC W/Diff, Automatedon 03-0 2-2025 Absolute Lymph 1.45 X10 3/uL Normal 0.83-4.51 [facility] Comment on above: Performed By: #### L 100.0100, L500.2500 ####[facility] [address] [place], [address] Absolute Neut 5.3 X10 3/uL Normal 2.0-7.7 [facility] Comment on above: Performed By: #### L 100.0100, L500.2500 ####[facility] [address] [place], [address] Basophils/100 WBC (Bld) 0.5 % Normal 0-1 [facility] Comment on above: Performed By: #### L 100.0100, L500.2500 ####[facility] [address] [place], [address] Eosinophils/100 WBC (Bld) 4.9 % Normal 0-5 [facility] Comment on above: Performed By: #### L 100.0100, L500.2500 ####[facility] [address] [place], [address] Erythrocyte distribution width (RBC) [Ratio] 14.7 % High 11.6-14.6 [facility] Comment on above: Performed By: #### L 100.0100, L500.2500 ####[facility] [address] [place], [address] Hematocrit (Bld) [Volume fraction] 32.3 % Low 40-54 [facility] Comment on above: Performed By: #### L 100.0100, L500.2500 ####[facility] [address] [place], [address] Hemoglobin (Bld) [Mass/Vol] 10.5 g/dL Low 13.0-16.5 [facility] Comment on above: Performed By: #### L 100.0100, L500.2500 ####[facility] [address] [place], [address] IG% 1.100 High 0.0-0.9 [facility] Comment on above: Result Comment: IG% - Immature Granulocytes (promyelocytes, myelocytes andmetamyelocytes) > 1% indicates that a LEFT SHIFT is Present. Performed By: #### L 100.0100, L500.2500 ####[facility] [address] [place], [address] Lymphocytes/100 WBC (Bld) 17.7 % Low 19-41 [facility] Comment on above: Performed By: #### L 100.0100, L500.2500 ####[facility] [address] [place], [address] MCH (RBC) [Entitic mass] 30.8 pg Normal 27.0-32.0 [facility] Comment on above: Performed By: #### L 100.0100, L500.2500 ####[facility] [address] [place], [address] MCHC (RBC) [Mass/Vol] 32.5 g/dL Normal 32-36 [facility] Comment on above: Performed By: #### L 100.0100, L500.2500 ####[facility] [address] [place], [address] MCV (RBC) [Entitic vol] 94.7 fL High 80-94 [facility] Comment on above: Performed By: #### L 100.0100, L500.2500 ####[facility] [address] [place], [address] Monocytes/100 WBC (Bld) 11.3 % High 0-10 [facility] Comment on above: Performed By: #### L 100.0100, L500.2500 ####[facility] [address] [place], [address] Neutrophils/100 WBC (Bld) 64.5 % Normal 47-70 [facility] Comment on above: Performed By: #### L 100.0100, L500.2500 ####[facility] [address] [place], [address] Nucleated RBC (Bld) [#/Vol] 0 10*3/uL Normal 0-5 [facility] Comment on above: Performed By: #### L 100.0100, L500.2500 ####[facility] [address] [place], [address] Platelet mean volume (Bld) [Entitic vol] 9.5 fL Normal 6.2-12.0 [facility] Comment on above: Performed By: #### L 100.0100, L500.2500 ####[facility] [address] [place], [address] Platelets (Bld) [#/Vol] 385 10*3/uL Normal 150-450 [facility] Comment on above: Performed By: #### L 100.0100, L500.2500 ####[facility] [address] [place], [address] RBC (Bld) [#/Vol] 3.41 10*6/uL Low 4.6-6.2 [facility] Comment on above: Performed By: #### L 100.0100, L500.2500 ####[facility] [address] [place], [address] RDW SD 51.6 fl High 35.1-43.9 [facility] Comment on above: Performed By: #### L 100.0100, L500.2500 ####[facility] [address] [place], [address] WBC (Bld) [#/Vol] 8.2 10*3/uL Normal 4.4-11.0 [facility] Comment on above: Performed By: #### L 100.0100, L500.2500 ####[facility] [address] [place], [address] Prothrombin Time w/INRon INR Coag (PPP) [Relative time] 2.6 {INR} Normal [facility] Comment on above: Performed By: #### L 300.3900 ####[facility] [address] [place], [address] PT Coag (PPP) [Time] 28.1 s High 11.7-14.9 [facility] Comment on above: Performed By: #### L 300.3900 ####[facility] [address] [place], [address] Vancomycin, Trough Levelon 0 12-09-2024 VANCO, TROUGH 26.6 ug/mL High 5.0-15.0 [facility] Comment on above: Order Comment: Comme nts: Trough to be drawn 30 mins prior to scheduled [id number] Result Comment: Niko mmended goal trough ranges are generally 10-15 mcg/mlfor less severe/complicated infections such as cellulitisor UTI and 15-20 mcg/ml for more severe/complicatedinfections such as bacteremia/sepsis, osteomyelitis,pneumonia or meningitis. Goal trough ranges should takeinto account indication, patient-specific factors andorganism BAIRON.VANCOMYCIN STANDARED DRUG THERAPY TROUGH LEVEL: 5.0 - 15.0 mg/LVANCOMYCIN HIGH INTENSITY THERAPY TROUGH LEVEL: 15.0 - 20.0 mg/LHigh Intensity therapy recommended for serious lifethreatening infections include:- Ipffljhiff-Paqiilvpftme-Vgcepslfn (Ventilator/Healtcare Associated)-SepsisPLEASE CONTACT PHARMACY SERVICES (#5556) FOR INTERPRETATIONOF RESULTS. Performed By: #### L 953.4686 ####[facility] [address] [place], [address] Bilirubin, totalOrdered By: Inocencia Kruger on 12-08-2024 Bilirubin [Mass/Vol] 0.39 mg/dL 0.00-1.30 [facility] CBC W/Diff, Automatedon Absolute Lymph 0.94 X10 3/uL Normal 0.83-4.51 [facility] Comment on above: Performed By: #### L 501.5200, L500.4050, L501.2300, L100.0100 ####[facility] [address] [place], [address] Absolute Neut 8.7 X10 3/uL High 2.0-7.7 [facility] Comment on above: Performed By: #### L 501.5200, L500.4050, L501.2300, L100.0100 ####[facility] [address] [place], [address] Basophils/100 WBC (Bld) 0.5 % Normal 0-1 [facility] Comment on above: Performed By: #### L 501.5200, L500.4050, L501.2300, L100.0100 ####[facility] [address] [place], [address] Eosinophils/100 WBC (Bld) 1.1 % Normal 0-5 [facility] Comment on above: Performed By: #### L 501.5200, L500.4050, L501.2300, L100.0100 ####[facility] [address] [place], [address] Erythrocyte distribution width (RBC) [Ratio] 14.6 % Normal 11.6-14.6 [facility] Comment on above: Performed By: #### L 501.5200, L500.4050, L501.2300, L100.0100 ####[facility] [address] [place], [address] Hematocrit (Bld) [Volume fraction] 33.1 % Low 40-54 [facility] Comment on above: Performed By: #### L 501.5200, L500.4050, L501.2300, L100.0100 ####[facility] [address] [place], [address] Hemoglobin (Bld) [Mass/Vol] 11.0 g/dL Low 13.0-16.5 [facility] Comment on above: Performed By: #### L 501.5200, L500.4050, L501.2300, L100.0100 ####[facility] [address] [place], [address] IG% 1.000 High 0.0-0.9 [facility] Comment on above: Result Comment: IG% - Immature Granulocytes (promyelocytes, myelocytes andmetamyelocytes) > 1% indicates that a LEFT SHIFT is Present. Performed By: #### L 501.5200, L500.4050, L501.2300, L100.0100 ####[facility] [address], [address] Lymphocytes/100 WBC (Bld) 8.6 % Low 19-41 [facility] Comment on above: Performed By: #### L 501.5200, L500.4050, L501.2300, L100.0100 ####[facility] [address] [place], [address] MCH (RBC) [Entitic mass] 31.1 pg Normal 27.0-32.0 [facility] Comment on above: Performed By: #### L 501.5200, L500.4050, L501.2300, L100.0100 ####[facility] [address] [place], [address] MCHC (RBC) [Mass/Vol] 33.2 g/dL Normal 32-36 [facility] Comment on above: Performed By: #### L 501.5200, L500.4050, L501.2300, L100.0100 ####[facility] [address] [place], [address] MCV (RBC) [Entitic vol] 93.5 fL Normal 80-94 [facility] Comment on above: Performed By: #### L 501.5200, L500.4050, L501.2300, L100.0100 ####[facility] [address] [place], [address] Monocytes/100 WBC (Bld) 9.2 % Normal 0-10 [facility] Comment on above: Performed By: #### L 501.5200, L500.4050, L501.2300, L100.0100 ####[facility] [address] [place], [address] Neutrophils/100 WBC (Bld) 79.6 % High 47-70 [facility] Comment on above: Performed By: #### L 501.5200, L500.4050, L501.2300, L100.0100 ####[facility] [address] [place], [address] Nucleated RBC (Bld) [#/Vol] 0 10*3/uL Normal 0-5 [facility] Comment on above: Performed By: #### L 501.5200, L500.4050, L501.2300, L100.0100 ####[facility] [address] [place], [address] Platelet mean volume (Bld) [Entitic vol] 9.4 fL Normal 6.2-12.0 [facility] Comment on above: Performed By: #### L 501.5200, L500.4050, L501.2300, L100.0100 ####[facility] [address] [place], [address] Platelets (Bld) [#/Vol] 408 10*3/uL Normal 150-450 [facility] Comment on above: Performed By: #### L 501.5200, L500.4050, L501.2300, L100.0100 ####[facility] [address] [place], [address] RBC (Bld) [#/Vol] 3.54 10*6/uL Low 4.6-6.2 [facility] Comment on above: Performed By: #### L 501.5200, L500.4050, L501.2300, L100.0100 ####[facility] [address] [place], [address] RDW SD 49.8 fl High 35.1-43.9 [facility] Comment on above: Performed By: #### L 501.5200, L500.4050, L501.2300, L100.0100 ####[facility] [address] [place], [address] WBC (Bld) [#/Vol] 10.9 10*3/uL Normal 4.4-11.0 [facility] Comment on above: Performed By: #### L 501.5200, L500.4050, L501.2300, L100.0100 ####[facility] [address] [place], [address] CTA Abd w/Runoff W/WO Contra ston 12-08-2024 CTA Abd w/Runoff W/WO Contrast Normal [facility] Comprehensive Metabolic Prof ilon 12-08-2024 Albumin [Mass/Vol] 3.0 g/dL Low 3.4-4.8 [facility] Comment on above: Performed By: #### L 501.5200, L500.4050, L501.2300, L100.0100 ####[facility] [address] [place], [address] Albumin/Globulin [Mass ratio] 0.9 {ratio} Normal 0.9-2.4 [facility] Comment on above: Performed By: #### L 501.5200, L500.4050, L501.2300, L100.0100 ####[facility] [address] [place], [address] ALK PHOS 66 U/L Normal 40-129 [facility] Comment on above: Performed By: #### L 501.5200, L500.4050, L501.2300, L100.0100 ####[facility] [address] [place], [address] ALT [Catalytic activity/Vol] 13 U/L Normal <=46 [facility] Comment on above: Performed By: #### L 501.5200, L500.4050, L501.2300, L100.0100 ####[facility] [address] [place], [address] Anion gap [Moles/Vol] 10 mmol/L Normal 5-15 [facility] Comment on above: Performed By: #### L 501.5200, L500.4050, L501.2300, L100.0100 ####[facility] [address] [place], [address] AST [Catalytic activity/Vol] 13 U/L Normal <=37 [facility] Comment on above: Performed By: #### L 501.5200, L500.4050, L501.2300, L100.0100 ####[facility] [address] [place], [address] Bilirubin [Mass/Vol] 0.39 mg/dL Normal 0.00-1.30 [facility] Comment on above: Performed By: #### L 501.5200, L500.4050, L501.2300, L100.0100 ####[facility] [address] [place], [address] BUN/CRE 15.5 RATIO Normal 10-20 [facility] Comment on above: Performed By: #### L 501.5200, L500.4050, L501.2300, L100.0100 ####[facility] [address] [place], [address] Calcium [Mass/Vol] 8.2 mg/dL Normal 7.6-11.0 [facility] Comment on above: Performed By: #### L 501.5200, L500.4050, L501.2300, L100.0100 ####[facility] [address] [place], [address] Chloride [Moles/Vol] 104 mmol/L Normal 96-108 [facility] Comment on above: Performed By: #### L 501.5200, L500.4050, L501.2300, L100.0100 ####[facility] [address] [place], [address] CO2 [Moles/Vol] 25.2 mmol/L Normal 22.0-29.0 [facility] Comment on above: Performed By: #### L 501.5200, L500.4050, L501.2300, L100.0100 ####[facility] [address] [place], [address] Creatinine [Mass/Vol] 0.75 mg/dL Normal 0.70-1.20 [facility] Comment on above: Performed By: #### L 501.5200, L500.4050, L501.2300, L100.0100 ####[facility] [address] [place], [address] ECRCL 104.23 ml/min Normal [facility] Comment on above: Performed By: #### L 501.5200, L500.4050, L501.2300, L100.0100 ####[facility] [address] [place], [address] GFR/1.73 sq M.predicted among non-blacks MDRD (S/P/Bld) [Vol rate/Area] 99 mL/min/{1.73_m2} Normal >60 [facility] Comment on above: Result Comment: mL/m in/1.73m2 CKD-EPI Creatinine Equation (2020) Performed By: #### L 501.5200, L500.4050, L501.2300, L100.0100 ####[facility] [address] [place], [address] Globulin (S) [Mass/Vol] 3.3 g/dL Normal 2.2-4.2 [facility] Comment on above: Performed By: #### L 501.5200, L500.4050, L501.2300, L100.0100 ####[facility] [address] [place], [address] Glucose [Mass/Vol] 131 mg/dL High 70-99 [facility] Comment on above: Performed By: #### L 501.5200, L500.4050, L501.2300, L100.0100 ####[facility] [address] [place], [address] Potassium [Moles/Vol] 3.7 mmol/L Normal 3.3-5.1 [facility] Comment on above: Performed By: #### L 501.5200, L500.4050, L501.2300, L100.0100 ####[facility] [address] [place], [address] Sodium [Moles/Vol] 139 mmol/L Normal 133-145 [facility] Comment on above: Performed By: #### L 501.5200, L500.4050, L501.2300, L100.0100 ####[facility] [address] [place], [address] T PROT 6.2 g/dL Normal 5.9-8.4 [facility] Comment on above: Performed By: #### L 501.5200, L500.4050, L501.2300, L100.0100 ####[facility] [address] [place], [address] Urea nitrogen [Mass/Vol] 12 mg/dL Normal 4-19 [facility] Comment on above: Performed By: #### L 501.5200, L500.4050, L501.2300, L100.0100 ####[facility] [address] [place], [address] Laboratory - Chemistry and C hemistry - challengeOrdered By: Inocencia Kruger on 12-08-2024 AST [Catalytic activity/Vol] 13 U/L <38 [facility] Magnesiumon 12-08-2024 Magnesium [Mass/Vol] 2.2 mg/dL Normal 1.5-2.2 [facility] Comment on above: Performed By: #### L 501.5200, L500.4050, L501.2300, L100.0100 ####[facility] [address] [place], [address] Magnesium (Unsp spec) [Mass/ Vol]Ordered By: Inocencia Kruger on 12-08-2024 Magnesium [Mass/Vol] 2.2 mg/dL 1.5-2.2 [facility] Magnesium measurement (mass/ volume)Ordered By: Inocencia Kruger on 12-08-2024 Magnesium (Unsp spec) [Mass/Vol] 2.2 mg/dL 1.5-2.2 [facility] Phosphoruson 12-08-2024 Phosphate [Mass/Vol] 2.9 mg/dL Normal 2.7-4.5 [facility] Comment on above: Performed By: #### L 501.5200, L500.4050, L501.2300, L100.0100 ####[facility] [address] [place], [address] Prothrombin Time w/INRon INR Coag (PPP) [Relative time] 3.4 {INR} Normal [facility] Comment on above: Performed By: #### L 300.3900 ####[facility] [address] [place], [address] PT Coag (PPP) [Time] 34.9 s High 11.7-14.9 [facility] Comment on above: Performed By: #### L 300.3900 ####[facility] [address] [place], [address] Serum globulin measurementOr dered By: Inocencia Kruger on 12-08-2024 Globulin (S) [Mass/Vol] 3.3 g/dL 2.2-4.2 [facility] Serum or plasma alanine read otransferase (ALT) measurementOrdered By: Inocencia Kruger on 12-08-2024 ALT [Catalytic activity/Vol] 13 U/L <47 [facility] Serum or plasma albumin toan urement (mass/volume)Ordered By: Inocencia Kruger on 12-08-2024 Albumin [Mass/Vol] 3.0 g/dL Low 3.4-4.8 [facility] Serum or plasma albumin/glob ulin mass ratioOrdered By: Inocencia Kruger on 12-08-2024 Albumin/Globulin [Mass ratio] 0.9 {ratio} 0.9-2.4 [facility] Serum or plasma alkaline brisa sphatase measurementOrdered By: Inocencia Kruger on 12-08-2024 ALP [Catalytic activity/Vol] 66 U/L 40-129 [facility] Serum phosphorus measurement Ordered By: Inocencia Kruger on 12-08-2024 Phosphorus Level 2.9 mg/dL 2.7-4.5 [facility] Total proteinOrdered By: Akosua Kruger on 12-08-2024 Protein [Mass/Vol] 6.2 g/dL 5.9-8.4 [facility] Vancomycin, Trough Levelon 0 12-08-2024 VANCO, TROUGH 17.5 ug/mL High 5.0-15.0 [facility] Comment on above: Order Comment: Comme nts: DRAW 30 MIN PRIOR TO [id number] Result Comment: Niko mmended goal trough ranges are generally 10-15 mcg/mlfor less severe/complicated infections such as cellulitisor UTI and 15-20 mcg/ml for more severe/complicatedinfections such as bacteremia/sepsis, osteomyelitis,pneumonia or meningitis. Goal trough ranges should takeinto account indication, patient-specific factors andorganism BAIRON.VANCOMYCIN STANDARED DRUG THERAPY TROUGH LEVEL: 5.0 - 15.0 mg/LVANCOMYCIN HIGH INTENSITY THERAPY TROUGH LEVEL: 15.0 - 20.0 mg/LHigh Intensity therapy recommended for serious lifethreatening infections include:- Qlzazapezf-Gyqgxxixvhey-Ikmbuxjlf (Ventilator/Healtcare Associated)-SepsisPLEASE CONTACT PHARMACY SERVICES (#7599) FOR INTERPRETATIONOF RESULTS. Performed By: #### L 501.8820 ####[facility] [address] [place], [place], [id number] Basic Metabolic Profile (BMP )on 12-07-2024 Anion gap [Moles/Vol] 11 mmol/L Normal - [facility] Comment on above: Performed By: #### L 300.3900, L503.6005, L500.2500, L500.3400, L100.0100 ####[facility] [address] [place], [place], [id number] BUN/CRE 24.1 RATIO High - [facility] Comment on above: Performed By: #### L 300.3900, L503.6005, L500.2500, L500.3400, L100.0100 ####[facility] [address] [place], [address] Calcium [Mass/Vol] 8.9 mg/dL Normal 7.6-11.0 [facility] Comment on above: Performed By: #### L 300.3900, L503.6005, L500.2500, L500.3400, L100.0100 ####[facility] [address] [place], [address] Chloride [Moles/Vol] 99 mmol/L Normal 96-108 [facility] Comment on above: Performed By: #### L 300.3900, L503.6005, L500.2500, L500.3400, L100.0100 ####[facility] [address] [place], [address] CO2 [Moles/Vol] 28.5 mmol/L Normal 22.0-29.0 [facility] Comment on above: Performed By: #### L 300.3900, L503.6005, L500.2500, L500.3400, L100.0100 ####[facility] [address] [place], [address] Creatinine [Mass/Vol] 0.78 mg/dL Normal 0.70-1.20 [facility] Comment on above: Performed By: #### L 300.3900, L503.6005, L500.2500, L500.3400, L100.0100 ####[facility] [address] [place], [address] ECRCL 107.73 ml/min Normal [facility] Comment on above: Performed By: #### L 300.3900, L503.6005, L500.2500, L500.3400, L100.0100 ####[facility] [address] [place], [address] GFR/1.73 sq M.predicted among non-blacks MDRD (S/P/Bld) [Vol rate/Area] 98 mL/min/{1.73_m2} Normal >60 [facility] Comment on above: Result Comment: mL/m in/1.73m2 CKD-EPI Creatinine Equation (2020) Performed By: #### L 300.3900, L503.6005, L500.2500, L500.3400, L100.0100 ####[facility] [address] [place], [address] Glucose [Mass/Vol] 77 mg/dL Normal 70-99 [facility] Comment on above: Performed By: #### L 300.3900, L503.6005, L500.2500, L500.3400, L100.0100 ####[facility] [address] [place], [address] Potassium [Moles/Vol] 3.9 mmol/L Normal 3.3-5.1 [facility] Comment on above: Performed By: #### L 300.3900, L503.6005, L500.2500, L500.3400, L100.0100 ####[facility] [address] [place], [address] Sodium [Moles/Vol] 138 mmol/L Normal 133-145 [facility] Comment on above: Performed By: #### L 300.3900, L503.6005, L500.2500, L500.3400, L100.0100 ####[facility] [address] [place], [address] Urea nitrogen [Mass/Vol] 19 mg/dL Normal 4-19 [facility] Comment on above: Performed By: #### L 300.3900, L503.6005, L500.2500, L500.3400, L100.0100 ####[facility] [address] [place], [address] Bilirubin directOrdered By: Jason Ash on 12-07-2024 Bilirubin.direct [Mass/Vol] 0.15 mg/dL 0.00-0.30 [facility] Blood cultureOrdered By: Major Ash on 12-07-2024 Bacteria identified Cx Nom (Bld) No growth in 5 days. [facility] CBC W/Diff, Automatedon - Absolute Lymph 1.49 X10 3/uL Normal 0.83-4.51 [facility] Comment on above: Performed By: #### L 300.3900, L503.6005, L500.2500, L500.3400, L100.0100 ####[facility] [address] [place], [address] Absolute Neut 7.5 X10 3/uL Normal 2.0-7.7 [facility] Comment on above: Performed By: #### L 300.3900, L503.6005, L500.2500, L500.3400, L100.0100 ####[facility] [address] [place], [address] Basophils/100 WBC (Bld) 0.3 % Normal 0-1 [facility] Comment on above: Performed By: #### L 300.3900, L503.6005, L500.2500, L500.3400, L100.0100 ####[facility] [address] [place], [address] Eosinophils/100 WBC (Bld) 0.7 % Normal 0-5 [facility] Comment on above: Performed By: #### L 300.3900, L503.6005, L500.2500, L500.3400, L100.0100 ####[facility] [address] [place], [address] Erythrocyte distribution width (RBC) [Ratio] 14.4 % Normal 11.6-14.6 [facility] Comment on above: Performed By: #### L 300.3900, L503.6005, L500.2500, L500.3400, L100.0100 ####[facility] [address] [place], [address] Hematocrit (Bld) [Volume fraction] 39.5 % Low 40-54 [facility] Comment on above: Performed By: #### L 300.3900, L503.6005, L500.2500, L500.3400, L100.0100 ####[facility] [address] [place], [address] Hemoglobin (Bld) [Mass/Vol] 12.7 g/dL Low 13.0-16.5 [facility] Comment on above: Performed By: #### L 300.3900, L503.6005, L500.2500, L500.3400, L100.0100 ####[facility] [address] [place], [address] IG% 1.300 High 0.0-0.9 [facility] Comment on above: Result Comment: IG% - Immature Granulocytes (promyelocytes, myelocytes andmetamyelocytes) > 1% indicates that a LEFT SHIFT is Present. Performed By: #### L 300.3900, L503.6005, L500.2500, L500.3400, L100.0100 ####[facility] [address] [place], [address] Lymphocytes/100 WBC (Bld) 14.5 % Low 19-41 [facility] Comment on above: Performed By: #### L 300.3900, L503.6005, L500.2500, L500.3400, L100.0100 ####[facility] [address] [place], [address] MCH (RBC) [Entitic mass] 30.5 pg Normal 27.0-32.0 [facility] Comment on above: Performed By: #### L 300.3900, L503.6005, L500.2500, L500.3400, L100.0100 ####[facility] [address] [place], [address] MCHC (RBC) [Mass/Vol] 32.2 g/dL Normal 32-36 [facility] Comment on above: Performed By: #### L 300.3900, L503.6005, L500.2500, L500.3400, L100.0100 ####[facility] [address] [place], [address] MCV (RBC) [Entitic vol] 94.7 fL High 80-94 [facility] Comment on above: Performed By: #### L 300.3900, L503.6005, L500.2500, L500.3400, L100.0100 ####[facility] [address] [place], [address] Monocytes/100 WBC (Bld) 10.7 % High 0-10 [facility] Comment on above: Performed By: #### L 300.3900, L503.6005, L500.2500, L500.3400, L100.0100 ####[facility] [address] [place], [address] Neutrophils/100 WBC (Bld) 72.5 % High 47-70 [facility] Comment on above: Performed By: #### L 300.3900, L503.6005, L500.2500, L500.3400, L100.0100 ####[facility] [address] [place], [address] Nucleated RBC (Bld) [#/Vol] 0 10*3/uL Normal 0-5 [facility] Comment on above: Performed By: #### L 300.3900, L503.6005, L500.2500, L500.3400, L100.0100 ####[facility] [address] [place], [address] Platelet mean volume (Bld) [Entitic vol] 9.8 fL Normal 6.2-12.0 [facility] Comment on above: Performed By: #### L 300.3900, L503.6005, L500.2500, L500.3400, L100.0100 ####[facility] [address] [place], [address] Platelets (Bld) [#/Vol] 435 10*3/uL Normal 150-450 [facility] Comment on above: Performed By: #### L 300.3900, L503.6005, L500.2500, L500.3400, L100.0100 ####[facility] [address] [place], [address] RBC (Bld) [#/Vol] 4.17 10*6/uL Low 4.6-6.2 [facility] Comment on above: Performed By: #### L 300.3900, L503.6005, L500.2500, L500.3400, L100.0100 ####[facility] [address] [place], [address] RDW SD 50.4 fl High 35.1-43.9 [facility] Comment on above: Performed By: #### L 300.3900, L503.6005, L500.2500, L500.3400, L100.0100 ####[facility] [address] [place], [address] WBC (Bld) [#/Vol] 10.3 10*3/uL Normal 4.4-11.0 [facility] Comment on above: Performed By: #### L 300.3900, L503.6005, L500.2500, L500.3400, L100.0100 ####[facility] [address] [place], [address] Consultation - Surgicalon Consultation - Surgical Normal [facility] Emergency Department Summary on 12-07-2024 Emergency Department Summary Normal [facility] Extremity Lower without Cont raon 12-07-2024 Extremity Lower without Contra Normal [facility] Extremity Lower without Contra Normal [facility] Gram Stainon 12-07-2024 GS Gram Stain 2+ Gram positive cocci 4+ Gram negative rods 2+ Gram positive rods No cells seen Normal [facility] Comment on above: Performed By: #### M 100.2000, M8200.1075, M100.3000 ####[facility] [address], [address] Gram stainOrdered By: Emil Kruger on 12-07-2024 Microscopic observation Gram stain Nom (Unsp spec) [facility] H AND P Exam - Hospitaliston 12-07-2024 H&P Exam - Hospitalist Normal [facility] Lactic Acidon 12-07-2024 Lactate [Moles/Vol] 1.7 mmol/L Normal 0.0-2.0 [facility] Comment on above: Order Comment: Y Performed By: #### L 300.3900, L503.6005, L500.2500, L500.3400, L100.0100 ####[facility] [address] [place], [address] Lactic acid measurementOrder ed By: Jason Ash on 12-07-2024 Lactate [Moles/Vol] 1.7 mmol/L 0.0-2.0 [facility] Liver Profileon 12-07-2024 Albumin [Mass/Vol] 3.5 g/dL Normal 3.4-4.8 [facility] Comment on above: Performed By: #### L 300.3900, L503.6005, L500.2500, L500.3400, L100.0100 ####[facility] [address], [address] ALK PHOS 82 U/L Normal 40-129 [facility] Comment on above: Performed By: #### L 300.3900, L503.6005, L500.2500, L500.3400, L100.0100 ####[facility] [address], [address] ALT [Catalytic activity/Vol] 18 U/L Normal <=46 [facility] Comment on above: Performed By: #### L 300.3900, L503.6005, L500.2500, L500.3400, L100.0100 ####[facility] [address] [place], [address] AST [Catalytic activity/Vol] 20 U/L Normal <=37 [facility] Comment on above: Performed By: #### L 300.3900, L503.6005, L500.2500, L500.3400, L100.0100 ####[facility] [address] [place], [address] Bilirubin [Mass/Vol] 0.36 mg/dL Normal 0.00-1.30 [facility] Comment on above: Performed By: #### L 300.3900, L503.6005, L500.2500, L500.3400, L100.0100 ####[facility] [address] [place], [address] Bilirubin.direct [Mass/Vol] 0.15 mg/dL Normal 0.00-0.30 [facility] Comment on above: Performed By: #### L 300.3900, L503.6005, L500.2500, L500.3400, L100.0100 ####[facility] [address] [place], [address] Globulin (S) [Mass/Vol] 4.0 g/dL Normal 2.2-4.2 [facility] Comment on above: Performed By: #### L 300.3900, L503.6005, L500.2500, L500.3400, L100.0100 ####[facility] [address] [place], [address] T PROT 7.5 g/dL Normal 5.9-8.4 [facility] Comment on above: Performed By: #### L 300.3900, L503.6005, L500.2500, L500.3400, L100.0100 ####[facility] [address] [place], [address] M8200.1075on 12-07-2024 M8200.1075 Normal Reference Range = Negative MRSA/SAUR WOUND PCR GeneXpert Instrument, PCR method MRSA PCR MRSA NEGATIVE STAPH. AUREUS PCR STAPH. AUREUS NEGATIVE Normal [facility] Comment on above: Performed By: #### M 100.2000, M8200.1075, M100.3000 ####[facility] [address] [place], [address] Methicillin resistant Staphy lococcus aureus detection by polymerase chain reactionOrdered By: Inocencia Kruger on 12-07-2024 Skin and Soft Tissue MRSA/MSSA (PCR [facility] Prothrombin Time w/INRon INR Coag (PPP) [Relative time] 3.6 {INR} Normal [facility] Comment on above: Performed By: #### L 300.3900, L503.6005, L500.2500, L500.3400, L100.0100 ####[facility] [address] [place], [address] PT Coag (PPP) [Time] 36.5 s High 11.7-14.9 [facility] Comment on above: Performed By: #### L 300.3900, L503.6005, L500.2500, L500.3400, L100.0100 ####[facility] [address] [place], [address] Routine wound cultureOrdered By: Inocencia Kruger on 12-07-2024 Microbial culture, routine Vancomycin Resist. E. faecalis Abnormal [facility] Wound Culture Providencia stuartii Abnormal [facility] Wound Culture Vancomycin Resist. E . faecalis Abnormal [facility] Wound Culture Corynebacterium striatum Abnormal [facility] Lower Ext Art Exam w/o Exerc mala 11-26-2024 Lower Ext Art Exam w/o Exercis Normal [facility] Venous Duplex US - Hamilton Extre mon 11-26-2024 Venous Duplex US - [place] Extrem Normal [facility] Culture, Anaerobic Any Sourc isaac 11-22-2024 CUAN No anaerobic bacteri a isolated. * This is an amended result. * A prior result that was reported as final has been changed. 11/22/24 1304 by BRIANNA Normal [facility] Comment on above: Performed By: #### M 100.2000, M100.3000, M100.4001 ####[facility] [address] [place], [address] Wound Cultureon 11-22-2024 WC Normal [facility] Comment on above: Performed By: #### M 100.2000, M100.3000, M100.4001 ####[facility] [address] [place], [address] Gram Stainon 11-18-2024 GS Gram Stain 3+ Gram positive cocci Rare Gram negative rods No cells seen [facility] Comment on above: Performed By: #### M 100.2000, M100.3000, M100.4001 ####[facility] [address] [place], [address] Anaerobic cultureOrdered By: Patricia Garcia on 11-16-2024 Bacteria identified Anaer cx Nom (Unsp spec) No anaerobic bacteria isolated. [facility] Bacteria identified Anaer cx Nom (Unsp spec)Ordered By: Patricia Garcia on 11-16-2024 Anaerobic Culture No anaerobic bacteri a isolated. [facility] Gram stainOrdered By: Patricia arguello on 11-16-2024 Microscopic observation Gram stain Nom (Unsp spec) [facility] Routine wound cultureOrdered By: Patricia Garcia on 11-16-2024 Microbial culture, routine Enterobacter cloacae complex Abnormal [facility] Wound Culture Enterobacter cloacae complex Abnormal [facility] Wound Culture Escherichia hermannii Abnormal [facility] Wound Culture Staphylococcus sciuri Abnormal [facility] Wound Culture Corynebacterium striatum Abnormal [facility] Wound Culture Acinetobacter baumannii Abnormal [facility] 14-OJ-Igmjdei DOrdered By: Alicia Garcia on 10-24-2024 Vitamin D 25-Hydroxy 19.1 ng/mL [facility] Comment on above: Vitamin D 25(OH) Sta tus Range Deficiency <20 ng/mL (50nmol/L) Insufficiency 20 - 30 ng/mL (50 - 75 nmol/L) Sufficiency 30 - 100 ng/mL (75 - 250 nmol/L) Toxicity >100 ng/mL (>250 nmol/L) Absolute neutrophil countOrd ered By: Patricia Garcia on 10-24-2024 Neutrophils (Bld) [#/Vol] 3.9 10*3/uL 2.0-7.7 [facility] Albumin to globulin ratioOrd ered By: Patricia Garcia on 10-24-2024 Albumin/Globulin [Mass ratio] 0.8 {ratio} Low 0.9-2.4 [facility] Comment on above: Performed By: #### L 506.1000, L500.4050, L100.0100, L501.9985 ####[facility] [address] [place], [place], [address] Basophil percentageOrdered B y: Patricia Garcia on 10-24-2024 Basophils/100 WBC (Bld) 0.5 % 0-1 [facility] Bilirubin, totalOrdered By: Patricia Garcia on 10-24-2024 Bilirubin [Mass/Vol] 0.30 mg/dL Normal 0.20-1.00 [facility] Comment on above: For patients on eltr ombopag therapy, use of Dimension Salome TBIL is not recommended. Result Comment: For patients on eltrombopag therapy, use of Dimension Salome TBIL is not recommended. Performed By: #### L 506.1000, L500.4050, L100.0100, L501.9985 ####[facility] [address] [place], [address] Blood urea nitrogen (BUN)/cr eatinine ratioOrdered By: Patricia Garcia on 10-24-2024 Urea nitrogen/Creatinine [Mass ratio] 23.2 mg/mg High 10-20 [facility] CBC W/Diff, Automatedon - Absolute Lymph 1.40 X10 3/uL Normal 0.83-4.51 [facility] Comment on above: Performed By: #### L 506.1000, L500.4050, L100.0100, L501.9985 ####[facility] [address] [place], [address] Absolute Neut 3.9 X10 3/uL Normal 2.0-7.7 [facility] Comment on above: Performed By: #### L 506.1000, L500.4050, L100.0100, L501.9985 ####[facility] [address] [place], [address] Basophils/100 WBC (Bld) 0.5 % Normal 0-1 [facility] Comment on above: Performed By: #### L 506.1000, L500.4050, L100.0100, L501.9985 ####[facility] [address] [place], [address] Eosinophils/100 WBC (Bld) 1.0 % Normal 0-5 [facility] Comment on above: Performed By: #### L 506.1000, L500.4050, L100.0100, L501.9985 ####[facility] [address] [place], [address] Erythrocyte distribution width (RBC) [Ratio] 14.2 % Normal 11.6-14.6 [facility] Comment on above: Performed By: #### L 506.1000, L500.4050, L100.0100, L501.9985 ####[facility] [address] [place], [address] Hematocrit (Bld) [Volume fraction] 42.9 % Normal 40-54 [facility] Comment on above: Performed By: #### L 506.1000, L500.4050, L100.0100, L501.9985 ####[facility] [address] [place], [address] Hemoglobin (Bld) [Mass/Vol] 13.9 g/dL Normal 13.0-16.5 [facility] Comment on above: Performed By: #### L 506.1000, L500.4050, L100.0100, L501.9985 ####[facility] [address] [place], [address] IG% 0.200 Normal 0.0-0.9 [facility] Comment on above: Result Comment: IG% - Immature Granulocytes (promyelocytes, myelocytes andmetamyelocytes) > 1% indicates that a LEFT SHIFT is Present. Performed By: #### L 506.1000, L500.4050, L100.0100, L501.9985 ####[facility] [address] [place], [address] Lymphocytes/100 WBC (Bld) 23.6 % Normal 19-41 [facility] Comment on above: Performed By: #### L 506.1000, L500.4050, L100.0100, L501.9985 ####[facility] [address] [place], [address] MCH (RBC) [Entitic mass] 31.6 pg Normal 27.0-32.0 [facility] Comment on above: Performed By: #### L 506.1000, L500.4050, L100.0100, L501.9985 ####[facility] [address] [place], [address] MCHC (RBC) [Mass/Vol] 32.4 g/dL Normal 32-36 [facility] Comment on above: Performed By: #### L 506.1000, L500.4050, L100.0100, L501.9985 ####[facility] [address] [place], [address] MCV (RBC) [Entitic vol] 97.5 fL High 80-94 [facility] Comment on above: Performed By: #### L 506.1000, L500.4050, L100.0100, L501.9985 ####[facility] [address] [place], [address] Monocytes/100 WBC (Bld) 9.6 % Normal 0-10 [facility] Comment on above: Performed By: #### L 506.1000, L500.4050, L100.0100, L501.9985 ####[facility] [address] [place], [address] Neutrophils/100 WBC (Bld) 65.1 % Normal 47-70 [facility] Comment on above: Performed By: #### L 506.1000, L500.4050, L100.0100, L501.9985 ####[facility] [address] [place], [address] Nucleated RBC (Bld) [#/Vol] 0 10*3/uL Normal 0-5 [facility] Comment on above: Performed By: #### L 506.1000, L500.4050, L100.0100, L501.9985 ####[facility] [address] [place], [address] Platelet mean volume (Bld) [Entitic vol] 9.6 fL Normal 6.2-12.0 [facility] Comment on above: Performed By: #### L 506.1000, L500.4050, L100.0100, L501.9985 ####[facility] [address] [place], [address] Platelets (Bld) [#/Vol] 269 10*3/uL Normal 150-450 [facility] Comment on above: Performed By: #### L 506.1000, L500.4050, L100.0100, L501.9985 ####[facility] [address] [place], [address] RBC (Bld) [#/Vol] 4.40 10*6/uL Low 4.6-6.2 [facility] Comment on above: Performed By: #### L 506.1000, L500.4050, L100.0100, L501.9985 ####[facility] [address] [place], [address] RDW SD 51.7 fl High 35.1-43.9 [facility] Comment on above: Performed By: #### L 506.1000, L500.4050, L100.0100, L501.9985 ####[facility] [address] [place], [address] WBC (Bld) [#/Vol] 5.9 10*3/uL Normal 4.4-11.0 [facility] Comment on above: Performed By: #### L 506.1000, L500.4050, L100.0100, L501.9985 ####[facility] [address] [place], [address] Carbon dioxide measurementOr dered By: Patricia Garcia on 10-24-2024 CO2 [Moles/Vol] 29.0 mmol/L Normal 21.0-32.0 [facility] Comment on above: Performed By: #### L 506.1000, L500.4050, L100.0100, L501.9985 ####[facility] [address] [place], [address] Chloride measurementOrdered By: Patricia Garcia on 10-24-2024 Chloride [Moles/Vol] 103 mmol/L Normal 98-107 [facility] Comment on above: Performed By: #### L 506.1000, L500.4050, L100.0100, L501.9985 ####[facility] [address] [place], [address] Comprehensive Metabolic Prof ric 10-24-2024 ALK P 133 U/L High 45-117 [facility] Comment on above: Performed By: #### L 506.1000, L500.4050, L100.0100, L501.9985 ####[facility] [address] [place], [address] BUN/CRE 23.2 RATIO High 10-20 [facility] Comment on above: Performed By: #### L 506.1000, L500.4050, L100.0100, L501.9985 ####[facility] [address] [place], [address] CA,Total 8.5 mg/dL Normal 8.5-10.1 [facility] Comment on above: Performed By: #### L 506.1000, L500.4050, L100.0100, L501.9985 ####[facility] [address] [place], [address] EST GFR - AA 129 mL/min Normal >60 [facility] Comment on above: Result Comment: Afri can Icelandic GFR Calc Performed By: #### L 506.1000, L500.4050, L100.0100, L501.9985 ####[facility] [address] [place], [address] GAP 8 Normal 5-15 [facility] Comment on above: Performed By: #### L 506.1000, L500.4050, L100.0100, L501.9985 ####[facility] [address] [place], [address] GFR/1.73 sq M.predicted among non-blacks MDRD (S/P/Bld) [Vol rate/Area] 106 mL/min/{1.73_m2} Normal >60 [facility] Comment on above: Result Comment: Non- GFR Calc Performed By: #### L 506.1000, L500.4050, L100.0100, L501.9985 ####[facility] [address] [place], [address] T PROT 7.4 g/dL Normal 6.4-8.2 [facility] Comment on above: Performed By: #### L 506.1000, L500.4050, L100.0100, L501.9985 ####[facility] [address] [place], [address] Comprehensive Metabolic Prof ilOrdered By: Patricia Garcia on 10-24-2024 AST [Catalytic activity/Vol] 17 U/L Normal 15-37 [facility] Comment on above: Performed By: #### L 506.1000, L500.4050, L100.0100, L501.9985 ####[facility] [address] [place], [address] Eosinophil percentageOrdered By: Patricia Garcia on 10-24-2024 Eosinophils/100 WBC (Bld) 1.0 % 0-5 [facility] Erythrocyte distribution wid th ratioOrdered By: Patricia Garcia on 10-24-2024 Erythrocyte distribution width (RBC) [Ratio] 14.2 % 11.6-14.6 [facility] Erythrocyte distribution wid th standard deviationOrdered By: Patricia Garcia on 10-24-2024 Erythrocyte distribution width (RBC) [Entitic vol] 51.7 fL High 35.1-43.9 [facility] Estimated glomerular filtrat ion rate (GFR) AmericanOrdered By: Patricia Garcia on 10-24-2024 Estimated GFR (MDRD) Amer 129 mL/min >60 [facility] Comment on above: GFR Calc Glomerular filtration rate ( GFR) estimationOrdered By: Patricia Garcia on 10-24-2024 Estimated GFR (MDRD) Non-Af Amer 106 mL/min >60 [facility] Comment on above: Non- GFR Calc Glucose measurementOrdered B y: Patricia Garcia on 10-24-2024 Glucose [Mass/Vol] 106 mg/dL Normal 74-106 [facility] Comment on above: Fasting Glucose resu lt from 100 to 125 mg/dL suggests IMPAIRED HOMEOSTASIS per A.D.A. criteria. Result Comment: Fast ing Glucose result from 100 to 125 mg/dLsuggests IMPAIRED HOMEOSTASIS per A.D.A. criteria. Performed By: #### L 506.1000, L500.4050, L100.0100, L501.9985 ####[facility] [address] [place], [place], [address] Hematocrit Auto (Bld) [Volum e fraction]Ordered By: Patricia Garcia on 10-24-2024 Hematocrit (Bld) [Volume fraction] 42.9 % 40-54 [facility] Hemoglobin A1con 10-24-2024 HbA1c (Bld) [Mass fraction] 5.5 % Normal 3.8-5.6 [facility] Comment on above: Result Comment: Norm al < 5.7 % Prediabetic 5.7 - 6.4 % Diabetic >or= 6.5 % Please note range changes. Performed By: #### L 506.1000, L500.4050, L100.0100, L501.9985 ####[facility] [address] [place], [place], [address] Hemoglobin A1c percentageOrd ered By: Patricia Garcia on 10-24-2024 HbA1c (Bld) [Mass fraction] 5.5 % 3.8-5.6 [facility] Comment on above: Normal < 5.7 % Predi abetic 5.7 - 6.4 % Diabetic >or= 6.5 % Please note range changes. Hemoglobin measurementOrdere d By: Patricia Garcia on 10-24-2024 Hemoglobin (Bld) [Mass/Vol] 13.9 g/dL 13.0-16.5 [facility] Immature granulocytes/100 WB C Auto (Bld)Ordered By: Patricia Petesinai on 10-24-2024 Immature granulocytes/100 WBC (Bld) 0.200 % 0.0-0.9 [facility] Comment on above: IG% - Immature Granu locytes (promyelocytes, myelocytes and metamyelocytes) > 1% indicates that a LEFT SHIFT is Present. Lymphocytes Auto (Unsp spec) [#/Vol]Ordered By: Patricia Garcia on 10-24-2024 Lymphocytes (Bld) [#/Vol] 1.40 10*3/uL 0.83-4.5 1 [facility] Lymphocytes/100 WBC Auto (Un sp spec)Ordered By: Patricia Garcia on 10-24-2024 Lymphocytes/100 WBC (Bld) 23.6 % 19-41 [facility] MCV (mean corpuscular volume ) determinationOrdered By: Patricia Garcia on 10-24-2024 MCV (RBC) [Entitic vol] 97.5 fL High 80-94 [facility] Mean corpuscular hemoglobin (MCH) determinationOrdered By: Patricia Garcia on 10-24-2024 MCH (RBC) [Entitic mass] 31.6 pg 27.0-32.0 [facility] Mean corpuscular hemoglobin concentration (MCHC) determinationOrdered By: Patricia Garcia on 10-24-2024 MCHC (RBC) [Mass/Vol] 32.4 g/dL 32-36 [facility] Mean platelet volume determi nationOrdered By: Patricia Garcia on 10-24-2024 Platelet mean volume (Bld) [Entitic vol] 9.6 fL 6.2-12.0 [facility] Monocyte percentageOrdered B y: Patricia Garcia on 10-24-2024 Monocytes/100 WBC (Bld) 9.6 % 0-10 [facility] Neutrophil percentageOrdered By: Patricia Garcia on 10-24-2024 Neutrophils/100 WBC (Bld) 65.1 % 47-70 [facility] Nucleated red blood cell per centageOrdered By: Patricia Garcia on 10-24-2024 Nucleated RBC/100 WBC (Bld) [Ratio] 0 % 0-5 [facility] Platelet countOrdered By: Karen Garcia on 10-24-2024 Platelets (Bld) [#/Vol] 269 10*3/uL 150-450 [facility] Potassium measurementOrdered By: Patricia Garcia on 10-24-2024 Potassium [Moles/Vol] 4.0 mmol/L Normal 3.5-5.1 [facility] Comment on above: Performed By: #### L 506.1000, L500.4050, L100.0100, L501.9985 ####[facility] [address] [place], [address] RBC Auto (Bld) [#/Vol]Ordere d By: Patricia Garcia on 10-24-2024 RBC (Bld) [#/Vol] 4.40 10*6/uL Low 4.6-6.2 [facility] Serum anion gap measurementO rdered By: Patricia Garcia on 10-24-2024 Anion gap [Moles/Vol] 8 mmol/L 02-21 [facility] Serum globulin measurementOr dered By: Patricia Garcia on 10-24-2024 Globulin (S) [Mass/Vol] 4.1 g/dL Normal 2.2-4.2 [facility] Comment on above: Performed By: #### L 506.1000, L500.4050, L100.0100, L501.9985 ####[facility] [address] [place], [address] Serum or plasma alanine read otransferase (ALT) measurementOrdered By: Patricia Garcia on 10-24-2024 ALT [Catalytic activity/Vol] 17 U/L Normal 16-61 [facility] Comment on above: Performed By: #### L 506.1000, L500.4050, L100.0100, L501.9985 ####[facility] [address] [place], [address] Serum or plasma albumin toan urement (mass/volume)Ordered By: Patricia Garcia on 10-24-2024 Albumin [Mass/Vol] 3.3 g/dL Normal 3.2-5.0 [facility] Comment on above: Performed By: #### L 506.1000, L500.4050, L100.0100, L501.9985 ####[facility] [address] [place], [address] Serum or plasma alkaline brisa sphatase measurementOrdered By: Patricia Garcia on 10-24-2024 ALP [Catalytic activity/Vol] 133 U/L High 45-117 [facility] Serum or plasma calcium toan urement (mass/volume)Ordered By: Patricia Garcia on 10-24-2024 Calcium [Mass/Vol] 8.5 mg/dL 8.5-10.1 [facility] Serum or plasma creatinine m easurement (mass/volume)Ordered By: Patricia Garcia on 10-24-2024 Creatinine [Mass/Vol] 0.78 mg/dL Normal 0.70-1.30 [facility] Comment on above: The validity of the calculated GFR & GFRAA in patients over 70 years has not been determined. Clinical correlation is essential. Result Comment: The validity of the calculated GFR GFRAA in patients over70 years has not been determined. Clinical correlation isessential. Performed By: #### L 506.1000, L500.4050, L100.0100, L501.9985 ####[facility] [address] [place], [address] Serum or plasma urea nitroge n measurement (mass/volume)Ordered By: Patricia Garcia on 10-24-2024 Urea nitrogen [Mass/Vol] 18 mg/dL Normal 7-18 [facility] Comment on above: Performed By: #### L 506.1000, L500.4050, L100.0100, L501.9985 ####[facility] [address] [place], [address] Sodium levelOrdered By: Patricia Garcia on 10-24-2024 Sodium [Moles/Vol] 139 mmol/L Normal 136-145 [facility] Comment on above: Performed By: #### L 506.1000, L500.4050, L100.0100, L501.9985 ####[facility] [address] [place], [address] Total proteinOrdered By: Johana Garcia on 10-24-2024 Protein [Mass/Vol] 7.4 g/dL 6.4-8.2 [facility] Vitamin D,25 Hydroxyon 10-24 Vitamin D 25-OH 19.1 ng/mL Normal [facility] Comment on above: Result Comment: Mary min D 25(OH) Status Range Deficiency <20 ng/mL (50nmol/L) Insufficiency 20 - 30 ng/mL (50 - 75 nmol/L) Sufficiency 30 - 100 ng/mL (75 - 250 nmol/L) Toxicity >100 ng/mL (>250 nmol/L) Performed By: #### L 506.1000, L500.4050, L100.0100, L501.9985 ####[facility] [address] [place], [address] White blood cell (WBC) count Ordered By: Patricia Garcia on 10-24-2024 WBC (Bld) [#/Vol] 5.9 10*3/uL 4.4-11.0 [facility] Culture, Anaerobic Any Sourc isaac 10-03-2024 CUAN List Antibiotics Las t 48 Hours? none List Antibiotics to be Started? none No anaerobic bacteria isolated. [facility] Comment on above: Performed By: #### M 100.4001, M100.3000, ####[facility] [address] [place], [address] Wound Cultureon 10-02-2024 WC Normal [facility] Comment on above: Performed By: #### M 100.4001, M100.3000, M1 ####[facility] [address] [place], [address] Gram Stainon 10-01-2024 GS List Antibiotics Las t 48 Hours? none List Antibiotics to be Started? none Gram Stain 1+ Red Blood Cells 1+ Gram positive rods Rare Gram positive cocci Normal [facility] Comment on above: Performed By: #### M 100.4001, M100.3000, M1 ####[facility] [address] [place], [place], [id number] Bacteria identified Anaer cx Nom (Unsp spec)Ordered By: Patricia Garcia on 09-28-2024 Anaerobic Culture No anaerobic bacteri a isolated. [facility] Gram stainOrdered By: Patricia arguello on 09-28-2024 Microscopic observation Gram stain Nom (Unsp spec) [facility] Routine wound cultureOrdered By: Patricia Garcia on 09-28-2024 Wound Culture Raoultella planticola Abnormal [facility] Wound Culture Staphylococcus haemolyticus Abnormal [facility] Wound Culture Corynebacterium striatum Abnormal [facility] Wound Culture Staphylococcus epidermidis Abnormal [facility] Wound Culture Morganella morganii sp sibonii Abnormal [facility] Urine Cultureon 09-28-2024 [facility] Culture exhibits no growth. Normal [facility] Comment on above: Performed By: #### L 100.0500, L500.4050, M100.2200, L400.0001 ####[facility] [address] [place], [place], [id number] Abdomen Single Viewon 2023 Abdomen Single View Normal [facility] L/S Spine Min 4 Viewson 09-09 L/S Spine Min 4 Views Normal [facility] Albumin to globulin ratioOrd ered By: Patricia Garcia on 09-26-2024 Albumin/Globulin [Mass ratio] 0.9 {ratio} 0.9-2.4 [facility] Bilirubin Test strip Ql (U)O rdered By: Patricia Garcia on 09-26-2024 Bilirubin Ql (U) Negative Negative [facility] Bilirubin, totalOrdered By: Patricia Garcia on 09-26-2024 Bilirubin [Mass/Vol] 0.20 mg/dL 0.20-1.00 [facility] Comment on above: For patients on eltr ombopag therapy, use of Dimension Salome TBIL is not recommended. Blood urea nitrogen (BUN)/cr eatinine ratioOrdered By: Patricia Garcia on 09-26-2024 Urea nitrogen/Creatinine [Mass ratio] 32.8 mg/mg High -20 [facility] CBC-Complete Blood Cnt No Di ffon 09-26-2024 Erythrocyte distribution width (RBC) [Ratio] 14.2 % Normal 11.6-14.6 [facility] Comment on above: Performed By: #### L 100.0500, L500.4050, M100.2200, L400.0001 ####[facility] [address] [place], [address] Hematocrit (Bld) [Volume fraction] 43.5 % Normal 40-54 [facility] Comment on above: Performed By: #### L 100.0500, L500.4050, M100.2200, L400.0001 ####[facility] [address] [place], [address] Hemoglobin (Bld) [Mass/Vol] 13.9 g/dL Normal 13.0-16.5 [facility] Comment on above: Performed By: #### L 100.0500, L500.4050, M100.2200, L400.0001 ####[facility] [address] [place], [address] MCH (RBC) [Entitic mass] 31.4 pg Normal 27.0-32.0 [facility] Comment on above: Performed By: #### L 100.0500, L500.4050, M100.2200, L400.0001 ####[facility] [address] [place], [address] MCHC (RBC) [Mass/Vol] 32.0 g/dL Normal 32-36 [facility] Comment on above: Performed By: #### L 100.0500, L500.4050, M100.2200, L400.0001 ####[facility] [address] [place], [address] MCV (RBC) [Entitic vol] 98.4 fL High 80-94 [facility] Comment on above: Performed By: #### L 100.0500, L500.4050, M100.2200, L400.0001 ####[facility] [address] [place], [address] Platelet mean volume (Bld) [Entitic vol] 9.7 fL Normal 6.2-12.0 [facility] Comment on above: Performed By: #### L 100.0500, L500.4050, M100.2200, L400.0001 ####[facility] [address] [place], [address] Platelets (Bld) [#/Vol] 293 10*3/uL Normal 150-450 [facility] Comment on above: Performed By: #### L 100.0500, L500.4050, M100.2200, L400.0001 ####[facility] [address] [place], [address] RBC (Bld) [#/Vol] 4.42 10*6/uL Low 4.6-6.2 [facility] Comment on above: Performed By: #### L 100.0500, L500.4050, M100.2200, L400.0001 ####[facility] [address] [place], [address] RDW SD 51.8 fl High 35.1-43.9 [facility] Comment on above: Performed By: #### L 100.0500, L500.4050, M100.2200, L400.0001 ####[facility] [address] [place], [address] WBC (Bld) [#/Vol] 6.0 10*3/uL Normal 4.4-11.0 [facility] Comment on above: Performed By: #### L 100.0500, L500.4050, M100.2200, L400.0001 ####[facility] [address] [place], [address] Carbon dioxide measurementOr dered By: Patricia Garcia on 09-26-2024 CO2 [Moles/Vol] 35.0 mmol/L High 21.0-32.0 [facility] Chloride measurementOrdered By: Patricia Jose on 09-26-2024 Chloride [Moles/Vol] 102 mmol/L 98-107 [facility] Comprehensive Metabolic Prof ilon 09-26-2024 Albumin [Mass/Vol] 3.5 g/dL Normal 3.2-5.0 [facility] Comment on above: Order Comment: C S Performed By: #### L 100.0500, L500.4050, M100.2200, L400.0001 ####[facility] [address] [place], [address] Albumin/Globulin [Mass ratio] 0.9 {ratio} Normal 0.9-2.4 [facility] Comment on above: Order Comment: C S Performed By: #### L 100.0500, L500.4050, M100.2200, L400.0001 ####[facility] [address] [place], [address] ALK P 130 U/L High 45-117 [facility] Comment on above: Order Comment: C S Performed By: #### L 100.0500, L500.4050, M100.2200, L400.0001 ####[facility] [address] [place], [address] ALT [Catalytic activity/Vol] 16 U/L Normal 16-61 [facility] Comment on above: Order Comment: C S Performed By: #### L 100.0500, L500.4050, M100.2200, L400.0001 ####[facility] [address] [place], [address] AST [Catalytic activity/Vol] 12 U/L Low 15-37 [facility] Comment on above: Order Comment: C S Performed By: #### L 100.0500, L500.4050, M100.2200, L400.0001 ####[facility] [address] [place], [address] Bilirubin [Mass/Vol] 0.20 mg/dL Normal 0.20-1.00 [facility] Comment on above: Order Comment: C S Result Comment: For patients on eltrombopag therapy, use of Dimension Salome TBIL is not recommended. Performed By: #### L 100.0500, L500.4050, M100.2200, L400.0001 ####[facility] [address] [place], [address] BUN/CRE 32.8 RATIO High 10-20 [facility] Comment on above: Order Comment: C S Performed By: #### L 100.0500, L500.4050, M100.2200, L400.0001 ####[facility] [address] [place], [address] CA,Total 9.0 mg/dL Normal 8.5-10.1 [facility] Comment on above: Order Comment: C S Performed By: #### L 100.0500, L500.4050, M100.2200, L400.0001 ####[facility] [address] [place], [address] Chloride [Moles/Vol] 102 mmol/L Normal 98-107 [facility] Comment on above: Order Comment: C S Performed By: #### L 100.0500, L500.4050, M100.2200, L400.0001 ####[facility] [address] [place], [address] CO2 [Moles/Vol] 35.0 mmol/L High 21.0-32.0 [facility] Comment on above: Order Comment: C S Performed By: #### L 100.0500, L500.4050, M100.2200, L400.0001 ####[facility] [address] [place], [address] Creatinine [Mass/Vol] 0.70 mg/dL Normal 0.70-1.30 [facility] Comment on above: Order Comment: C S Result Comment: The validity of the calculated GFR GFRAA in patients over70 years has not been determined. Clinical correlation isessential. Performed By: #### L 100.0500, L500.4050, M100.2200, L400.0001 ####[facility] [address] [place], [address] EST GFR - AA 144 mL/min Normal >60 [facility] Comment on above: Order Comment: C S Result Comment: Afri can Icelandic GFR Calc Performed By: #### L 100.0500, L500.4050, M100.2200, L400.0001 ####[facility] [address] [place], [address] GAP 2 Low 5-15 [facility] Comment on above: Order Comment: C S Performed By: #### L 100.0500, L500.4050, M100.2200, L400.0001 ####[facility] [address] [place], [address] GFR/1.73 sq M.predicted among non-blacks MDRD (S/P/Bld) [Vol rate/Area] 119 mL/min/{1.73_m2} Normal >60 [facility] Comment on above: Order Comment: C S Result Comment: Non- GFR Calc Performed By: #### L 100.0500, L500.4050, M100.2200, L400.0001 ####[facility] [address] [place], [address] Globulin (S) [Mass/Vol] 3.8 g/dL Normal 2.2-4.2 [facility] Comment on above: Order Comment: C S Performed By: #### L 100.0500, L500.4050, M100.2200, L400.0001 ####[facility] [address] [place], [address] Glucose [Mass/Vol] 102 mg/dL Normal 74-106 [facility] Comment on above: Order Comment: C S Result Comment: Fast ing Glucose result from 100 to 125 mg/dLsuggests IMPAIRED HOMEOSTASIS per A.D.A. criteria. Performed By: #### L 100.0500, L500.4050, M100.2200, L400.0001 ####[facility] [address] [place], [address] Potassium [Moles/Vol] 4.2 mmol/L Normal 3.5-5.1 [facility] Comment on above: Order Comment: C S Performed By: #### L 100.0500, L500.4050, M100.2200, L400.0001 ####[facility] [address] [place], [address] Sodium [Moles/Vol] 138 mmol/L Normal 136-145 [facility] Comment on above: Order Comment: C S Performed By: #### L 100.0500, L500.4050, M100.2200, L400.0001 ####[facility] [address] [place], [address] T PROT 7.3 g/dL Normal 6.4-8.2 [facility] Comment on above: Order Comment: C S Performed By: #### L 100.0500, L500.4050, M100.2200, L400.0001 ####[facility] [address] [place], [address] Urea nitrogen [Mass/Vol] 23 mg/dL High 7-18 [facility] Comment on above: Order Comment: C S Performed By: #### L 100.0500, L500.4050, M100.2200, L400.0001 ####[facility] [address] [place], [address] Epithelial cells.squamous LM Ql (Urine sed)Ordered By: Patricia Garcia on 09-26-2024 Epithelial cells.squamous LM.HPF (Urine sed) [#/Area] 0 /[HPF] 0-5 [facility] Erythrocyte distribution wid th ratioOrdered By: Patricia Garcia on 09-26-2024 Erythrocyte distribution width (RBC) [Ratio] 14.2 % 11.6-14.6 [facility] Erythrocyte distribution wid th standard deviationOrdered By: Patricia Garcia on 09-26-2024 Erythrocyte distribution width (RBC) [Entitic vol] 51.8 fL High 35.1-43.9 [facility] Estimated glomerular filtrat ion rate (GFR) AmericanOrdered By: Patricia Garcia on 09-26-2024 Estimated GFR (MDRD) Amer 144 mL/min >60 [facility] Comment on above: GFR Calc Glomerular filtration rate ( GFR) estimationOrdered By: Patricia Garcia on 09-26-2024 Estimated GFR (MDRD) Non-Af Amer 119 mL/min >60 [facility] Comment on above: Non- GFR Calc Glucose Ql (U)Ordered By: Karen Garcia on 09-26-2024 Urine Glucose (UA) Normal mg/dl Normal [facility] Glucose measurementOrdered B y: Patricia Garcia on 09-26-2024 Glucose [Mass/Vol] 102 mg/dL 74-106 [facility] Comment on above: Fasting Glucose resu lt from 100 to 125 mg/dL suggests IMPAIRED HOMEOSTASIS per A.D.A. criteria. Hematocrit Auto (Bld) [Volum e fraction]Ordered By: Patricia Garcia on 09-26-2024 Hematocrit (Bld) [Volume fraction] 43.5 % 40-54 [facility] Hemoglobin measurementOrdere d By: Patricia Garcia on 09-26-2024 Hemoglobin (Bld) [Mass/Vol] 13.9 g/dL 13.0-16.5 [facility] Ketones Test strip Ql (U)Ord ered By: Patricia Garcia on 09-26-2024 Ketones Ql (U) Negative Negative [facility] Laboratory - Chemistry and C hemistry - challengeOrdered By: Patricia Garcia on 09-26-2024 AST [Catalytic activity/Vol] 12 U/L Low 15-37 [facility] MCV (mean corpuscular volume ) determinationOrdered By: Patricia Garcia on 09-26-2024 MCV (RBC) [Entitic vol] 98.4 fL High 80-94 [facility] Mean corpuscular hemoglobin (MCH) determinationOrdered By: Patricia Garcia on 09-26-2024 MCH (RBC) [Entitic mass] 31.4 pg 27.0-32.0 [facility] Mean corpuscular hemoglobin concentration (MCHC) determinationOrdered By: Patricia Garcia on 09-26-2024 MCHC (RBC) [Mass/Vol] 32.0 g/dL 32-36 [facility] Mean platelet volume determi nationOrdered By: Patricia Garcia on 09-26-2024 Platelet mean volume (Bld) [Entitic vol] 9.7 fL 6.2-12.0 [facility] Microscopic analysis of urin e for red blood cells (RBC)Ordered By: Patricia Garcia on 09-26-2024 Urine RBC 0-5 SEEN /hpf 0-5 [facility] Mucus LM Ql (Urine sed)Order ed By: Patricia Garcia on 09-26-2024 Mucus Ql (Urine sed) 0 SEEN /hpf [facility] Nitrite Test strip Ql (U)Ord ered By: Patricia Garcia on 09-26-2024 Nitrite Ql (U) Negative Negative [facility] Platelet countOrdered By: Karen Garcia on 09-26-2024 Platelets (Bld) [#/Vol] 293 10*3/uL 150-450 [facility] Potassium measurementOrdered By: Patricia Garcia on 09-26-2024 Potassium [Moles/Vol] 4.2 mmol/L 3.5-5.1 [facility] Protein Test strip Ql (U)Ord ered By: Patricia Garcia on 09-26-2024 Protein Ql (U) Negative Negative [facility] RBC Auto (Bld) [#/Vol]Ordere d By: Patricia Garcia on 09-26-2024 RBC (Bld) [#/Vol] 4.42 10*6/uL Low 4.6-6.2 [facility] Serum anion gap measurementO rdered By: Patricia Garcia on 09-26-2024 Anion gap [Moles/Vol] 2 mmol/L Low 5-15 [facility] Serum globulin measurementOr dered By: Patricia Garcia on 09-26-2024 Globulin (S) [Mass/Vol] 3.8 g/dL 2.2-4.2 [facility] Serum or plasma alanine read otransferase (ALT) measurementOrdered By: Patricia Garcia on 09-26-2024 ALT [Catalytic activity/Vol] 16 U/L 16-61 [facility] Serum or plasma albumin toan urement (mass/volume)Ordered By: Patricia Garcia on 09-26-2024 Albumin [Mass/Vol] 3.5 g/dL 3.2-5.0 [facility] Serum or plasma alkaline brisa sphatase measurementOrdered By: Patricia Gracia on 09-26-2024 ALP [Catalytic activity/Vol] 130 U/L High 45-117 [facility] Serum or plasma calcium toan urement (mass/volume)Ordered By: Patricia Garcia on 09-26-2024 Calcium [Mass/Vol] 9.0 mg/dL 8.5-10.1 [facility] Serum or plasma creatinine m easurement (mass/volume)Ordered By: Patricia Garcia on 09-26-2024 Creatinine [Mass/Vol] 0.70 mg/dL 0.70-1.30 [facility] Comment on above: The validity of the calculated GFR & GFRAA in patients over 70 years has not been determined. Clinical correlation is essential. Serum or plasma urea nitroge n measurement (mass/volume)Ordered By: Patricia Garcia on 09-26-2024 Urea nitrogen [Mass/Vol] 23 mg/dL High -18 [facility] Sodium levelOrdered By: Patricia Garcia on 09-26-2024 Sodium [Moles/Vol] 138 mmol/L 136-145 [facility] Total proteinOrdered By: Johana Garcia on 09-26-2024 Protein [Mass/Vol] 7.3 g/dL 6.4-8.2 [facility] Urinalysis, Completeon 09-26 EPI,SQUAMOUS 0-5 SEEN Normal 0-5 [facility] Comment on above: Order Comment: C Pete ine, Random Performed By: #### L 100.0500, L500.4050, M100.2200, L400.0001 ####[facility] [address] [place], [address] RBC 0-5 SEEN Normal 0-5 [facility] Comment on above: Order Comment: C Pete ine, Random Performed By: #### L 100.0500, L500.4050, M100.2200, L400.0001 ####[facility] [address] [place], [address] WBC 0-5 SEEN Normal 0-5 [facility] Comment on above: Order Comment: C Pete ine, Random Performed By: #### L 100.0500, L500.4050, M100.2200, L400.0001 ####[facility] [address] [place], [address] BACTERIA 0 SEEN Normal None Seen [facility] Comment on above: Order Comment: C Pete ine, Random Performed By: #### L 100.0500, L500.4050, M100.2200, L400.0001 ####[facility] [address] [place], [address] Mucus Ql (Urine sed) 0 SEEN Normal [facility] Comment on above: Order Comment: C Pete ine, Random Performed By: #### L 100.0500, L500.4050, M100.2200, L400.0001 ####[facility] [address] [place], [address] Urine blood detectionOrdered By: Patricia Garcia on 09-26-2024 Urine Occult Blood Negative Negative [facility] Urine clarityOrdered By: Johana Garcia on 09-26-2024 Clarity (U) Clear Clear [facility] Urine color determinationOrd ered By: Patricia Garcia on 09-26-2024 Color (U) Yellow Yellow [facility] Urine cultureOrdered By: Johana Garcia on 09-26-2024 Bacteria identified Cx Nom (U) Culture exhibits no growth. [facility] Urine leukocyte esterase det ection by dipstickOrdered By: Patricia Garcia on 09-26-2024 Leukocyte esterase Test strip Ql (U) Negative Negative [facility] Urine pHOrdered By: Patricia rawls on 09-26-2024 pH (U) 6.0 [pH] 5.0 - 8.0 [facility] Urine sediment bacteria coun t by microscopy (number/high power field)Ordered By: Patricia Garcia on 09-26-2024 Bacteria LM.HPF (Urine sed) [#/Area] 0 /[HPF] None Seen [facility] Urine specific gravity measu rementOrdered By: Patricia Garcia on 09-26-2024 Specific gravity (U) [Rel density] 1.010 1.002-1.030 [facility] Urobilinogen Ql (U)Ordered B y: Patricia Garcia on 09-26-2024 Urine Urobilinogen Normal mg/dl Normal [facility] White blood cell (WBC) count Ordered By: Patricia Garcia on 09-26-2024 WBC (Bld) [#/Vol] 6.0 10*3/uL 4.4-11.0 [facility] White blood cell countOrdere d By: Patricia Garcia on 09-26-2024 Urine WBC 0-5 SEEN /hpf 0-5 [facility] Prealbumin [id number] Prealbumin [Mass/Vol] 23 mg/dL Normal 10-36 [facility] Comment on above: Result Comment: Perf ormed at: CB - [facility] [place] [id number] Director: Sebastian Juárez PhD, Phone: [phone] Performed By: #### L [id number] ####[facility] [address] [place], [place], [id number] Foot 2 Viewson 06-22-2024 Foot 2 Views Normal [facility] L/S Spine Comp/w Bending Vie wson 06-22-2024 L/S Spine Comp/w Bending Views Normal [facility] Thoracic Spine 3 Viewson Thoracic Spine 3 Views Normal [facility] Culture, Anaerobic Any Sourc isaac 06-19-2024 CUAN Normal [facility] Comment on above: Performed By: #### M 100.3000, M100.4001, M100.1999 ####[facility] [address] [place], [address] Wound Cultureon 06-18-2024 WC Normal [facility] Comment on above: Performed By: #### M 100.3000, M100.4001, M100.1999 ####[facility] [address] [place], [address] Gram Stainon 06-16-2024 GS MEDIAL Gram Stain 1+ Red Blood Cells Rare Gram negative rods No White Blood Cells No Epithelial cells Normal [facility] Comment on above: Performed By: #### M 100.3000, M100.4001, M100.1999 ####[facility] [address] [place], [address] [id number] (add)on 05-14-2024 [id number] (add) Normal [facility] Comment on above: Performed By: #### P [id number]. ####[facility] [address] [place], [address] PROSTATE BXon 05-14-2024 PROSTATE BX Normal [facility] Comment on above: Performed By: #### P PROSB ####[facility] [address] [place], [address] Anaerobic cultureOrdered By: Patricia Garcia on 07-01-2023 Bacteria identified Anaer cx Nom (Unsp spec) No growth in 5 days. [facility] Bacteria identified Anaer cx Nom (Unsp spec) No growth in 5 days. [facility] Bacteria identified Cx Nom ( Wound)Ordered By: Patricia Garcia on 07-01-2023 Wound Culture Pseudomonas aeruginosa [facility] Wound Culture Pseudomonas aeruginosa [facility] Gram stain for investigation of transfusion reactionOrdered By: Patricia Garcia on 07-01-2023 Microscopic observation Gram stain Nom (Unsp spec) [facility] Microscopic observation Gram stain Nom (Unsp spec) [facility] No Panel InformationOrdered By: Patricia Garcia on 06-01-2023 Vitamin D 25-Hydroxy 56.4 ng/mL [facility] Comment on above: Vitamin D 25(OH) Sta tus Range Deficiency <20 ng/mL (50nmol/L) Insufficiency 20 - 30 ng/mL (50 - 75 nmol/L) Sufficiency 30 - 100 ng/mL (75 - 250 nmol/L) Toxicity >100 ng/mL (>250 nmol/L) Anaerobic cultureOrdered By: Patricia Garcia on 05-13-2023 Bacteria identified Anaer cx Nom (Unsp spec) No growth in 5 days. [facility] Bacteria identified Anaer cx Nom (Unsp spec) No growth in 5 days. [facility] Bacteria identified Cx Nom ( Wound)Ordered By: Patricia Garcia on 05-13-2023 Wound Culture Pseudomonas aeruginosa [facility] Wound Culture Pseudomonas aeruginosa [facility] Gram stain for investigation of transfusion reactionOrdered By: Patricia Garcia on 05-13-2023 Microscopic observation Gram stain Nom (Unsp spec) [facility] Microscopic observation Gram stain Nom (Unsp spec) [facility] Anaerobic cultureOrdered By: Patricia Garcia on 05-06-2023 Bacteria identified Anaer cx Nom (Unsp spec) No anaerobic bacteria isolated. [facility] Bacteria identified Cx Nom ( Wound)Ordered By: Patricia Garcia on 05-06-2023 Wound Culture Pseudomonas aeruginosa [facility] Gram stain for investigation of transfusion reactionOrdered By: Patricia Garcia on 05-06-2023 Microscopic observation Gram stain Nom (Unsp spec) [facility] Anaerobic cultureOrdered By: Dr. Garcia on 02-01-2023 Bacteria identified Anaer cx Nom (Unsp spec) No anaerobic bacteria isolated. [facility] Bacteria identified Cx Nom ( Wound)Ordered By: Dr. Garcia on 01-31-2023 Wound Culture Staphylococcus aureus [facility] Wound Culture Enterobacter cloacae complex [facility] Wound Culture Pseudomonas aeruginosa [facility] Anaerobic cultureOrdered By: Patricia Garcia on 01-28-2023 Bacteria identified Anaer cx Nom (Unsp spec) No anaerobic bacteria isolated. [facility] Bacteria identified Cx Nom ( Wound)Ordered By: Patricia Garcia on 01-28-2023 Wound Culture Staphylococcus aureus [facility] Wound Culture Enterobacter cloacae complex [facility] Wound Culture Pseudomonas aeruginosa [facility] Gram stain for investigation of transfusion reactionOrdered By: Patricia Garcia on 01-28-2023 Microscopic observation Gram stain Nom (Unsp spec) [facility] Gram stain for investigation of transfusion reactionOrdered By: Dr. Garcia on 01-28-2023 Microscopic observation Gram stain Nom (Unsp spec) [facility] Laboratory - CoagulationOrde red By: Kevin Garcia on 12-20-2022 INR Coag (Bld) [Relative time] 2.8 {INR} [facility] Comment on above: Critical Value > 4.0 Whole blood prothrombin time Ordered By: Kevin Garcia on 12-20-2022 PT Coag (Bld) [Time] 32.3 s 11.7-14.9 [facility] Basophil percentageOrdered B y: Kevin Garcia on 12-13-2022 Bilirubin [Mass/Vol] 0.50 mg/dL 0.20-1.00 [facility] Comment on above: For patients on eltr ombopag therapy, use of Dimension Salome TBIL is not recommended. Chloride [Moles/Vol] 105 mmol/L 98-107 [facility] Glucose [Mass/Vol] 84 mg/dL 74-106 [facility] Potassium [Moles/Vol] 4.0 mmol/L 3.5-5.1 [facility] Protein [Mass/Vol] 6.4 g/dL 6.4-8.2 [facility] Sodium [Moles/Vol] 139 mmol/L 136-145 [facility] WBC (Bld) [#/Vol] 5.5 10*3/uL 4.4-11.0 [facility] Blood erythrocytes count (nu mber/volume)Ordered By: Kevin Garcia on 12-13-2022 RBC (Bld) [#/Vol] 4.08 10*6/uL 4.6-6.2 [facility] Blood hemoglobin measurement (mass/volume)Ordered By: Kevin Garcia on 12-13-2022 Hemoglobin (Bld) [Mass/Vol] 12.9 g/dL 13.0-16.5 [facility] Blood platelet mean volumeOr dered By: Kevin Garcia on 12-13-2022 Platelet mean volume (Bld) [Entitic vol] 9.2 fL 6.2-12.0 [facility] Determination of erythrocyte mean corpuscular volume (MCV)Ordered By: Kevin Garcia on 12-13-2022 MCV (RBC) [Entitic vol] 99.5 fL 80-94 [facility] Hematocrit Auto (Bld) [Volum e fraction]Ordered By: Kevin Garcia on 12-13-2022 Hematocrit (Bld) [Volume fraction] 40.6 % 40-54 [facility] INR in Blood by Coagulation assayOrdered By: Kevin Garcia on 12-13-2022 INR Coag (Bld) [Relative time] 2.4 {INR} [facility] Laboratory - Chemistry and C hemistry - challengeOrdered By: Kevin Garcia on 12-13-2022 ALP [Catalytic activity/Vol] 78 U/L 45-117 [facility] ALT [Catalytic activity/Vol] 24 U/L 16-61 [facility] CO2 [Moles/Vol] 29.0 mmol/L 21.0-32.0 [facility] Globulin (S) [Mass/Vol] 3.7 g/dL 2.2-4.2 [facility] Urea nitrogen/Creatinine [Mass ratio] 24.5 mg/mg 10-20 [facility] Laboratory - CoagulationOrde red By: Kevin Garcia on 12-13-2022 PT Coag (PPP) [Time] 26.2 s 11.7-14.9 [facility] Laboratory - Hematology and Cell countsOrdered By: Kevin Garcia on 12-13-2022 Erythrocyte distribution width (RBC) [Entitic vol] 52.8 fL 35.1-43.9 [facility] Erythrocyte distribution width (RBC) [Ratio] 14.5 % 11.6-14.6 [facility] MCH (RBC) [Entitic mass] 31.6 pg 27.0-32.0 [facility] MCHC Auto (RBC) [Mass/Vol]Or dered By: Kevin Garcia on 12-13-2022 MCHC (RBC) [Mass/Vol] 31.8 g/dL 32-36 [facility] No Panel InformationOrdered By: Kevin Garcia on 12-13-2022 Estimated GFR (MDRD) Amer 158 mL/min >60 [facility] Comment on above: GFR Calc Estimated GFR (MDRD) Non-Af Amer 130 mL/min >60 [facility] Comment on above: Non- GFR Calc Platelets bldOrdered By: Kirstin Garcia on 12-13-2022 Platelets (Bld) [#/Vol] 341 10*3/uL 150-450 [facility] Serum or plasma albumin toan urement (mass/volume)Ordered By: Kevin Garcia on 12-13-2022 Albumin [Mass/Vol] 2.7 g/dL 3.2-5.0 [facility] Serum or plasma albumin/glob ulin mass ratioOrdered By: Kevin Garcia on 12-13-2022 Albumin/Globulin [Mass ratio] 0.7 {ratio} 0.9-2.4 [facility] Serum or plasma calcium toan urement (mass/volume)Ordered By: Kevin Garcia on 12-13-2022 Calcium [Mass/Vol] 8.6 mg/dL 8.5-10.1 [facility] Serum or plasma creatinine m easurement (mass/volume)Ordered By: Kevin Garcia on 12-13-2022 Creatinine [Mass/Vol] 0.65 mg/dL 0.70-1.30 [facility] Comment on above: The validity of the calculated GFR & GFRAA in patients over 70 years has not been determined. Clinical correlation is essential. Serum or plasma urea nitroge n measurement (mass/volume)Ordered By: Kevin Garcia on 12-13-2022 Urea nitrogen [Mass/Vol] 16 mg/dL 7-18 [facility] Thin prep Papanicolaou smear with manual screeningOrdered By: Kevin Garcia on 12-13-2022 Thin prep Papanicolaou smear with manual screening 9 U/L 15-37 [facility] Thin prep Papanicolaou smear with manual screening 5 5-15 [facility] Absolute lymphocyte countOrd ered By: Dr. Cobb on 12-08-2022 Lymphocytes Auto (Unsp spec) [#/Vol] 1.66 10*3/uL 0.83-4.51 [facility] Basophil percentageOrdered B y: Dr. Cobb on 12-08-2022 Basophils/100 WBC (Bld) 0.7 % 0-1 [facility] Chloride [Moles/Vol] 105 mmol/L 98-107 [facility] Eosinophils/100 WBC (Bld) 7.2 % 0-5 [facility] Glucose [Mass/Vol] 90 mg/dL 74-106 [facility] Neutrophils (Bld) [#/Vol] 2.8 10*3/uL 2.0-7.7 [facility] Neutrophils/100 WBC (Bld) 48.4 % 47-70 [facility] Potassium [Moles/Vol] 4.0 mmol/L 3.5-5.1 [facility] Sodium [Moles/Vol] 138 mmol/L 136-145 [facility] WBC (Bld) [#/Vol] 5.7 10*3/uL 4.4-11.0 [facility] Blood erythrocytes count (nu mber/volume)Ordered By: Dr. Cobb on 12-08-2022 RBC (Bld) [#/Vol] 4.00 10*6/uL 4.6-6.2 [facility] Blood hemoglobin measurement (mass/volume)Ordered By: Dr. Cobb on 12-08-2022 Hemoglobin (Bld) [Mass/Vol] 12.8 g/dL 13.0-16.5 [facility] Blood lymphocytes/100 leukoc ytesOrdered By: Dr. Cobb on 12-08-2022 Lymphocytes/100 WBC (Bld) 29.2 % 19-41 [facility] Blood monocytes/100 leukocyt esOrdered By: Dr. Cobb on 12-08-2022 Monocytes/100 WBC (Bld) 13.4 % 0-10 [facility] Blood platelet mean volumeOr dered By: Dr. Cobb on 12-08-2022 Platelet mean volume (Bld) [Entitic vol] 8.6 fL 6.2-12.0 [facility] COVID-19 virus antigen assay Ordered By: Dr. Cobb on 12-08-2022 SARS-CoV-2 (COVID-19) Ag IA.rapid Ql (Resp) [facility] Determination of erythrocyte mean corpuscular volume (MCV)Ordered By: Dr. Cobb on 12-08-2022 MCV (RBC) [Entitic vol] 97.0 fL 80-94 [facility] Hematocrit Auto (Bld) [Volum e fraction]Ordered By: Dr. Cobb on 12-08-2022 Hematocrit (Bld) [Volume fraction] 38.8 % 40-54 [facility] INR in Blood by Coagulation assayOrdered By: Dr. Cobb on 12-08-2022 INR Coag (Bld) [Relative time] 1.5 {INR} [facility] Laboratory - Chemistry and C hemistry - challengeOrdered By: Dr. Cobb on 12-08-2022 CO2 [Moles/Vol] 25.0 mmol/L 21.0-32.0 [facility] Urea nitrogen/Creatinine [Mass ratio] 40.8 mg/mg 10-20 [facility] Laboratory - CoagulationOrde red By: Dr. Cobb on 12-08-2022 PT Coag (PPP) [Time] 17.8 s 11.7-14.9 [facility] Laboratory - Hematology and Cell countsOrdered By: Dr. Cobb on 12-08-2022 Erythrocyte distribution width (RBC) [Entitic vol] 49.8 fL 35.1-43.9 [facility] Erythrocyte distribution width (RBC) [Ratio] 14.1 % 11.6-14.6 [facility] Immature granulocytes/100 WBC (Bld) 1.100 % 0.0-0.9 [facility] Comment on above: IG% - Immature Granu locytes (promyelocytes, myelocytes and metamyelocytes) > 1% indicates that a LEFT SHIFT is Present. MCH (RBC) [Entitic mass] 32.0 pg 27.0-32.0 [facility] Nucleated RBC/100 WBC (Bld) [Ratio] 0 % 0-5 [facility] MCHC Auto (RBC) [Mass/Vol]Or dered By: Dr. Cobb on 12-08-2022 MCHC (RBC) [Mass/Vol] 33.0 g/dL 32-36 [facility] No Panel InformationOrdered By: Dr. Cobb on 12-08-2022 Estimated Creatinine Clearance Calc 103.84 ml/min [facility] Estimated GFR (MDRD) Amer 162 mL/min >60 [facility] Comment on above: GFR Calc Estimated GFR (MDRD) Non-Af Amer 134 mL/min >60 [facility] Comment on above: Non- GFR Calc Platelets bldOrdered By: Dr. Cobb on 12-08-2022 Platelets (Bld) [#/Vol] 291 10*3/uL 150-450 [facility] Serum or plasma calcium toan urement (mass/volume)Ordered By: Dr. Cobb on 12-08-2022 Calcium [Mass/Vol] 8.7 mg/dL 8.5-10.1 [facility] Serum or plasma creatinine m easurement (mass/volume)Ordered By: Dr. Cobb on 12-08-2022 Creatinine [Mass/Vol] 0.64 mg/dL 0.70-1.30 [facility] Comment on above: The validity of the calculated GFR & GFRAA in patients over 70 years has not been determined. Clinical correlation is essential. Serum or plasma urea nitroge n measurement (mass/volume)Ordered By: Dr. Cobb on 12-08-2022 Urea nitrogen [Mass/Vol] 26 mg/dL 7-18 [facility] Thin prep Papanicolaou smear with manual screeningOrdered By: Dr. Cobb on 12-08-2022 Thin prep Papanicolaou smear with manual screening 8 5-15 [facility] Absolute lymphocyte countOrd ered By: Dr. Cobb on 12-07-2022 Lymphocytes Auto (Unsp spec) [#/Vol] 1.26 10*3/uL 0.83-4.51 [facility] Basophil percentageOrdered B y: Dr. Cobb on 12-07-2022 Basophils/100 WBC (Bld) 0.9 % 0-1 [facility] Eosinophils/100 WBC (Bld) 7.4 % 0-5 [facility] Neutrophils (Bld) [#/Vol] 2.8 10*3/uL 2.0-7.7 [facility] Neutrophils/100 WBC (Bld) 51.7 % 47-70 [facility] WBC (Bld) [#/Vol] 5.4 10*3/uL 4.4-11.0 [facility] Bilirubin [Mass/Vol] 0.20 mg/dL 0.20-1.00 [facility] Comment on above: For patients on eltr ombopag therapy, use of Dimension Salome TBIL is not recommended. Chloride [Moles/Vol] 108 mmol/L 98-107 [facility] Cholesterol [Mass/Vol] 173 mg/dL <200 [facility] Comment on above: <200 mg/dL Desirable 200-240 mg/dL Borderline >240 mg/dL High Risk Glucose [Mass/Vol] 93 mg/dL 74-106 [facility] Potassium [Moles/Vol] 4.2 mmol/L 3.5-5.1 [facility] Protein [Mass/Vol] 6.3 g/dL 6.4-8.2 [facility] Sodium [Moles/Vol] 138 mmol/L 136-145 [facility] Triglyceride [Mass/Vol] 99 mg/dL <199 [facility] Comment on above: The drugs N-Acetylcy steine and Metamizole may falsely depress this assay.Serum Triglycerides Reference Interval Normal <150 mg/dL Borderline high 150 - 199 mg/dL High 200 - 499 mg/dL Very High > or = 500 mg/dL Blood erythrocytes count (nu mber/volume)Ordered By: Dr. Cobb on 12-07-2022 RBC (Bld) [#/Vol] 4.24 10*6/uL 4.6-6.2 [facility] Blood hemoglobin measurement (mass/volume)Ordered By: Dr. Cobb on 12-07-2022 Hemoglobin (Bld) [Mass/Vol] 13.3 g/dL 13.0-16.5 [facility] Blood lymphocytes/100 leukoc ytesOrdered By: Dr. Cobb on 12-07-2022 Lymphocytes/100 WBC (Bld) 23.3 % 19-41 [facility] Blood monocytes/100 leukocyt esOrdered By: Dr. Cobb on 12-07-2022 Monocytes/100 WBC (Bld) 15.6 % 0-10 [facility] Blood platelet mean volumeOr dered By: Dr. Cobb on 12-07-2022 Platelet mean volume (Bld) [Entitic vol] 8.6 fL 6.2-12.0 [facility] Determination of erythrocyte mean corpuscular volume (MCV)Ordered By: Dr. Cobb on 12-07-2022 MCV (RBC) [Entitic vol] 97.2 fL 80-94 [facility] Hematocrit Auto (Bld) [Volum e fraction]Ordered By: Dr. Cobb on 12-07-2022 Hematocrit (Bld) [Volume fraction] 41.2 % 40-54 [facility] INR in Blood by Coagulation assayOrdered By: Dr. Cobb on 12-07-2022 INR Coag (Bld) [Relative time] 1.4 {INR} [facility] Laboratory - Chemistry and C hemistry - challengeOrdered By: Dr. Cobb on 12-07-2022 ALP [Catalytic activity/Vol] 59 U/L 45-117 [facility] ALT [Catalytic activity/Vol] 37 U/L 16-61 [facility] CO2 [Moles/Vol] 23.0 mmol/L 21.0-32.0 [facility] Globulin (S) [Mass/Vol] 4.0 g/dL 2.2-4.2 [facility] Urea nitrogen/Creatinine [Mass ratio] 36.6 mg/mg 10-20 [facility] Laboratory - CoagulationOrde red By: Dr. Cobb on 12-07-2022 PT Coag (PPP) [Time] 16.7 s 11.7-14.9 [facility] Laboratory - Hematology and Cell countsOrdered By: Dr. Cobb on 12-07-2022 Erythrocyte distribution width (RBC) [Entitic vol] 49.8 fL 35.1-43.9 [facility] Erythrocyte distribution width (RBC) [Ratio] 14.2 % 11.6-14.6 [facility] Immature granulocytes/100 WBC (Bld) 1.100 % 0.0-0.9 [facility] Comment on above: IG% - Immature Granu locytes (promyelocytes, myelocytes and metamyelocytes) > 1% indicates that a LEFT SHIFT is Present. MCH (RBC) [Entitic mass] 31.4 pg 27.0-32.0 [facility] Nucleated RBC/100 WBC (Bld) [Ratio] 0 % 0-5 [facility] MCHC Auto (RBC) [Mass/Vol]Or dered By: Dr. Cobb on 12-07-2022 MCHC (RBC) [Mass/Vol] 32.3 g/dL 32-36 [facility] No Panel InformationOrdered By: Dr. Cobb on 12-07-2022 Estimated Creatinine Clearance Calc 100.69 ml/min [facility] Estimated GFR (MDRD) Amer 157 mL/min >60 [facility] Comment on above: GFR Calc Estimated GFR (MDRD) Non-Af Amer 130 mL/min >60 [facility] Comment on above: Non- GFR Calc Platelets bldOrdered By: Dr. Cobb on 12-07-2022 Platelets (Bld) [#/Vol] 277 10*3/uL 150-450 [facility] Serum or plasma albumin toan urement (mass/volume)Ordered By: Dr. Cobb on 12-07-2022 Albumin [Mass/Vol] 2.3 g/dL 3.2-5.0 [facility] Serum or plasma albumin/glob ulin mass ratioOrdered By: Dr. Cobb on 12-07-2022 Albumin/Globulin [Mass ratio] 0.6 {ratio} 0.9-2.4 [facility] Serum or plasma calcium toan urement (mass/volume)Ordered By: Dr. Cobb on 12-07-2022 Calcium [Mass/Vol] 8.7 mg/dL 8.5-10.1 [facility] Serum or plasma cholesterol in HDL measurement (mass/volume)Ordered By: Dr. Cobb on 12-07-2022 Cholesterol in HDL [Mass/Vol] 48 mg/dL >40 [facility] Comment on above: The drugs N-Acetylcy steine and Metamizole may falsely depress this assay. Reference Range HDL <40 mg/dL Low HDL Cholesterol HDL >or= 60 mg/dL High HDL Cholesterol Serum or plasma cholesterol in VLDL measurement (mass/volume)Ordered By: Dr. Cobb on 12-07-2022 Cholesterol in VLDL [Mass/Vol] 20 mg/dL 5-40 [facility] Serum or plasma creatinine m easurement (mass/volume)Ordered By: Dr. Cobb on 12-07-2022 Creatinine [Mass/Vol] 0.66 mg/dL 0.70-1.30 [facility] Comment on above: The validity of the calculated GFR & GFRAA in patients over 70 years has not been determined. Clinical correlation is essential. Serum or plasma low density lipoprotein (LDL) cholesterol measurement (mass/volume)Ordered By: Dr. Cobb on 12-07-2022 Cholesterol in LDL [Mass/Vol] 105 mg/dL 0-130 [facility] Serum or plasma urea nitroge n measurement (mass/volume)Ordered By: Dr. Cobb on 12-07-2022 Urea nitrogen [Mass/Vol] 24 mg/dL 7-18 [facility] Thin prep Papanicolaou smear with manual screeningOrdered By: Dr. Cobb on 12-07-2022 Thin prep Papanicolaou smear with manual screening 23 U/L 15-37 [facility] Thin prep Papanicolaou smear with manual screening 7 5-15 [facility] Anaerobic cultureOrdered By: Dr. Erazo on 12-06-2022 Bacteria identified Anaer cx Nom (Unsp spec) No anaerobic bacteria isolated. [facility] Glucose Glucometer (BldC) [M ass/Vol]Ordered By: Dr. Cobb on 12-06-2022 Glucose [Mass/Vol] 127 mg/dL 74-106 [facility] Comment on above: MANAGEMENT OF PATIEN T CARE PER NURSING PROTOCOL Laboratory - CoagulationOrde red By: Dr. Cobb on 12-06-2022 aPTT Coag (Bld) [Time] 30.0 s 24.1-36.2 [facility] Laboratory - Microbiology an d Antimicrobial susceptibilityOrdered By: Dr. Erazo on 12-05-2022 Bacteria identified Cx Nom (Bld) No growth in 5 days. [facility] Bacteria identified Cx Nom ( Wound)Ordered By: Dr. Erazo on 12-04-2022 Wound Culture Pseudomonas aeruginosa [facility] Vancomycin troughOrdered By: Dr. Erazo on 12-03-2022 Vancomycin trough [Mass/Vol] 20.8 ug/mL 5.0-15.0 [facility] Comment on above: VANCOMYCIN STANDARED DRUG THERAPY TROUGH LEVEL: 5.0 - 15.0 mg/L VANCOMYCIN HIGH INTENSITY THERAPY TROUGH LEVEL: 15.0 - 20.0 mg/L High Intensity therapy recommended for serious lifethreatening infections include:- Ysxlnhkcal-Anxvckwdcppp-Xkrodexvo (Ventilator/Healtcare Associated)-Sepsis PLEASE CONTACT PHARMACY SERVICES (#[id number]) FOR INTERPRETATIONOF RESULTS. Absolute lymphocyte countOrd ered By: Dr. Lucero on 12-02-2022 Lymphocytes Auto (Unsp spec) [#/Vol] 1.47 10*3/uL 0.83-4.51 [facility] Basophil percentageOrdered B y: Dr. Lucero on 12-02-2022 Basophils/100 WBC (Bld) 0.6 % 0-1 [facility] Chloride [Moles/Vol] 106 mmol/L 98-107 [facility] Eosinophils/100 WBC (Bld) 4.8 % 0-5 [facility] Glucose [Mass/Vol] 112 mg/dL 74-106 [facility] Comment on above: Fasting Glucose resu lt from 100 to 125 mg/dL suggests IMPAIRED HOMEOSTASIS per A.D.A. criteria. Neutrophils (Bld) [#/Vol] 2.8 10*3/uL 2.0-7.7 [facility] Neutrophils/100 WBC (Bld) 53.1 % 47-70 [facility] Potassium [Moles/Vol] 4.1 mmol/L 3.5-5.1 [facility] Sodium [Moles/Vol] 142 mmol/L 136-145 [facility] WBC (Bld) [#/Vol] 5.2 10*3/uL 4.4-11.0 [facility] Blood erythrocytes count (nu mber/volume)Ordered By: Dr. Lucero on 12-02-2022 RBC (Bld) [#/Vol] 3.92 10*6/uL 4.6-6.2 [facility] Blood hemoglobin measurement (mass/volume)Ordered By: Dr. Lucero on 12-02-2022 Hemoglobin (Bld) [Mass/Vol] 12.7 g/dL 13.0-16.5 [facility] Blood lymphocytes/100 leukoc ytesOrdered By: Dr. Lucero on 12-02-2022 Lymphocytes/100 WBC (Bld) 28.2 % 19-41 [facility] Blood monocytes/100 leukocyt esOrdered By: Dr. Lucero on 12-02-2022 Monocytes/100 WBC (Bld) 12.9 % 0-10 [facility] Blood platelet mean volumeOr dered By: Dr. Lucero on 12-02-2022 Platelet mean volume (Bld) [Entitic vol] 8.8 fL 6.2-12.0 [facility] Determination of erythrocyte mean corpuscular volume (MCV)Ordered By: Dr. Lucero on 12-02-2022 MCV (RBC) [Entitic vol] 96.9 fL 80-94 [facility] Hematocrit Auto (Bld) [Volum e fraction]Ordered By: Dr. Lucero on 12-02-2022 Hematocrit (Bld) [Volume fraction] 38.0 % 40-54 [facility] INR in Blood by Coagulation assayOrdered By: Dr. Erazo on 12-02-2022 INR Coag (Bld) [Relative time] 2.8 {INR} [facility] Laboratory - Chemistry and C hemistry - challengeOrdered By: Dr. Lucero on 12-02-2022 CO2 [Moles/Vol] 30.0 mmol/L 21.0-32.0 [facility] Urea nitrogen/Creatinine [Mass ratio] 22.8 mg/mg 10-20 [facility] Laboratory - CoagulationOrde red By: Dr. Erazo on 12-02-2022 PT Coag (PPP) [Time] 29.0 s 11.7-14.9 [facility] Laboratory - Hematology and Cell countsOrdered By: Dr. Lucero on 12-02-2022 Erythrocyte distribution width (RBC) [Entitic vol] 50.8 fL 35.1-43.9 [facility] Erythrocyte distribution width (RBC) [Ratio] 14.2 % 11.6-14.6 [facility] Immature granulocytes/100 WBC (Bld) 0.400 % 0.0-0.9 [facility] Comment on above: IG% - Immature Granu locytes (promyelocytes, myelocytes and metamyelocytes) > 1% indicates that a LEFT SHIFT is Present. MCH (RBC) [Entitic mass] 32.4 pg 27.0-32.0 [facility] Nucleated RBC/100 WBC (Bld) [Ratio] 0 % 0-5 [facility] MCHC Auto (RBC) [Mass/Vol]Or dered By: Dr. Lucero on 12-02-2022 MCHC (RBC) [Mass/Vol] 33.4 g/dL 32-36 [facility] No Panel InformationOrdered By: Dr. Lucero on 12-02-2022 Estimated Creatinine Clearance Calc 88.61 ml/min [facility] Estimated GFR (MDRD) Amer 135 mL/min >60 [facility] Comment on above: GFR Calc Estimated GFR (MDRD) Non-Af Amer 111 mL/min >60 [facility] Comment on above: Non- GFR Calc Platelets bldOrdered By: Dr. Lucero on 12-02-2022 Platelets (Bld) [#/Vol] 327 10*3/uL 150-450 [facility] Serum or plasma calcium toan urement (mass/volume)Ordered By: Dr. Lucero on 12-02-2022 Calcium [Mass/Vol] 8.9 mg/dL 8.5-10.1 [facility] Serum or plasma creatinine m easurement (mass/volume)Ordered By: Dr. Lucero on 12-02-2022 Creatinine [Mass/Vol] 0.75 mg/dL 0.70-1.30 [facility] Comment on above: The validity of the calculated GFR & GFRAA in patients over 70 years has not been determined. Clinical correlation is essential. Serum or plasma urea nitroge n measurement (mass/volume)Ordered By: Dr. Lucero on 12-02-2022 Urea nitrogen [Mass/Vol] 17 mg/dL 7-18 [facility] Thin prep Papanicolaou smear with manual screeningOrdered By: Dr. Lucero on 12-02-2022 Thin prep Papanicolaou smear with manual screening 6 5-15 [facility] Vancomycin troughOrdered By: Dr. Erazo on 12-02-2022 Vancomycin trough [Mass/Vol] 16.6 ug/mL 5.0-15.0 [facility] Comment on above: VANCOMYCIN STANDARED DRUG THERAPY TROUGH LEVEL: 5.0 - 15.0 mg/L VANCOMYCIN HIGH INTENSITY THERAPY TROUGH LEVEL: 15.0 - 20.0 mg/L High Intensity therapy recommended for serious lifethreatening infections include:- Zgctypgyta-Ulickufcbvpl-Xhukqotor (Ventilator/Healtcare Associated)-Sepsis PLEASE CONTACT PHARMACY SERVICES (#9099) FOR INTERPRETATIONOF RESULTS. Gram stain for investigation of transfusion reactionOrdered By: Dr. Erazo on 12-01-2022 Microscopic observation Gram stain Nom (Unsp spec) [facility] Serum or plasma phenytoin me asurement (mass/volume)Ordered By: Dr. Lucero on 12-01-2022 Phenytoin [Mass/Vol] 7.5 mL 10.0-20.0 [facility] Serum or plasma transthyreti n measurement (mass/volume)Ordered By: Dr. Erazo on 12-01-2022 Prealbumin [Mass/Vol] 16.1 mg/dL 20.0-40.0 [facility] Whole blood hemoglobin A1c/t otal hemoglobin ratio (mass fraction)Ordered By: Dr. Erazo on 12-01-2022 HbA1c (Bld) [Mass fraction] 5.6 % 3.8-5.6 [facility] Comment on above: Normal < 5.7 % Predi abetic 5.7 - 6.4 % Diabetic >or= 6.5 % Please note range changes. Absolute lymphocyte countOrd ered By: Dr. White on 11-30-2022 Lymphocytes Auto (Unsp spec) [#/Vol] 1.13 10*3/uL 0.83-4.51 [facility] Basophil percentageOrdered B y: Dr. White on 11-30-2022 Basophils/100 WBC (Bld) 0.8 % 0-1 [facility] Chloride [Moles/Vol] 101 mmol/L 98-107 [facility] Eosinophils/100 WBC (Bld) 1.8 % 0-5 [facility] Glucose [Mass/Vol] 120 mg/dL 74-106 [facility] Comment on above: Fasting Glucose resu lt from 100 to 125 mg/dL suggests IMPAIRED HOMEOSTASIS per A.D.A. criteria. Neutrophils (Bld) [#/Vol] 4.5 10*3/uL 2.0-7.7 [facility] Neutrophils/100 WBC (Bld) 67.8 % 47-70 [facility] Potassium [Moles/Vol] 4.2 mmol/L 3.5-5.1 [facility] Sodium [Moles/Vol] 136 mmol/L 136-145 [facility] WBC (Bld) [#/Vol] 6.6 10*3/uL 4.4-11.0 [facility] Basophil percentageOrdered B y: Dr. Erazo on 11-30-2022 Bilirubin [Mass/Vol] 0.40 mg/dL 0.20-1.00 [facility] Comment on above: For patients on eltr ombopag therapy, use of Dimension Salome TBIL is not recommended. Protein [Mass/Vol] 7.8 g/dL 6.4-8.2 [facility] Blood erythrocytes count (nu mber/volume)Ordered By: Dr. White on 11-30-2022 RBC (Bld) [#/Vol] 4.26 10*6/uL 4.6-6.2 [facility] Blood hemoglobin measurement (mass/volume)Ordered By: Dr. White on 11-30-2022 Hemoglobin (Bld) [Mass/Vol] 13.3 g/dL 13.0-16.5 [facility] Blood lymphocytes/100 leukoc ytesOrdered By: Dr. White on 11-30-2022 Lymphocytes/100 WBC (Bld) 17.1 % 19-41 [facility] Blood monocytes/100 leukocyt esOrdered By: Dr. White on 11-30-2022 Monocytes/100 WBC (Bld) 12.0 % 0-10 [facility] Blood platelet mean volumeOr dered By: Dr. White on 11-30-2022 Platelet mean volume (Bld) [Entitic vol] 8.9 fL 6.2-12.0 [facility] Determination of erythrocyte mean corpuscular volume (MCV)Ordered By: Dr. White on 11-30-2022 MCV (RBC) [Entitic vol] 97.4 fL 80-94 [facility] Direct bilirubinOrdered By: Dr. Erazo on 11-30-2022 Bilirubin.direct [Mass/Vol] 0.14 mg/dL 0.00-0.30 [facility] Erythrocyte sedimentation ra teOrdered By: Dr. Erazo on 11-30-2022 ESR (Bld) [Velocity] 30 mm/h 0-20 [facility] Hematocrit Auto (Bld) [Volum e fraction]Ordered By: Dr. White on 11-30-2022 Hematocrit (Bld) [Volume fraction] 41.5 % 40-54 [facility] INR in Blood by Coagulation assayOrdered By: Dr. White on 11-30-2022 INR Coag (Bld) [Relative time] 2.3 {INR} [facility] Laboratory - Chemistry and C hemistry - challengeOrdered By: Dr. Erazo on 11-30-2022 ALP [Catalytic activity/Vol] 76 U/L 45-117 [facility] ALT [Catalytic activity/Vol] 16 U/L 16-61 [facility] Globulin (S) [Mass/Vol] 4.5 g/dL 2.2-4.2 [facility] Natriuretic peptide B (Bld) [Mass/Vol] 9.6 pg/mL 0-100 [facility] Laboratory - Chemistry and C hemistry - challengeOrdered By: Dr. White on 11-30-2022 CO2 [Moles/Vol] 29.0 mmol/L 21.0-32.0 [facility] Urea nitrogen/Creatinine [Mass ratio] 19.5 mg/mg 10-20 [facility] Laboratory - CoagulationOrde red By: Dr. White on 11-30-2022 PT Coag (PPP) [Time] 25.2 s 11.7-14.9 [facility] Laboratory - Hematology and Cell countsOrdered By: Dr. White on 11-30-2022 Erythrocyte distribution width (RBC) [Entitic vol] 50.6 fL 35.1-43.9 [facility] Erythrocyte distribution width (RBC) [Ratio] 14.2 % 11.6-14.6 [facility] Immature granulocytes/100 WBC (Bld) 0.500 % 0.0-0.9 [facility] Comment on above: IG% - Immature Granu locytes (promyelocytes, myelocytes and metamyelocytes) > 1% indicates that a LEFT SHIFT is Present. MCH (RBC) [Entitic mass] 31.2 pg 27.0-32.0 [facility] Nucleated RBC/100 WBC (Bld) [Ratio] 0 % 0-5 [facility] MCHC Auto (RBC) [Mass/Vol]Or dered By: Dr. White on 11-30-2022 MCHC (RBC) [Mass/Vol] 32.0 g/dL 32-36 [facility] No Panel InformationOrdered By: Dr. Erazo on 11-30-2022 Methicillin-Resist S.aureus DNA PCR Negative Negative [facility] No Panel InformationOrdered By: Dr. White on 11-30-2022 Estimated Creatinine Clearance Calc 76.39 ml/min [facility] Estimated GFR (MDRD) Amer 113 mL/min >60 [facility] Comment on above: GFR Calc Estimated GFR (MDRD) Non-Af Amer 93 mL/min >60 [facility] Comment on above: Non- GFR Calc Platelets bldOrdered By: Dr. White on 11-30-2022 Platelets (Bld) [#/Vol] 417 10*3/uL 150-450 [facility] Serum or plasma albumin toan urement (mass/volume)Ordered By: Dr. Erazo on 11-30-2022 Albumin [Mass/Vol] 3.3 g/dL 3.2-5.0 [facility] Serum or plasma calcium toan urement (mass/volume)Ordered By: Dr. White on 11-30-2022 Calcium [Mass/Vol] 9.3 mg/dL 8.5-10.1 [facility] Serum or plasma creatinine m easurement (mass/volume)Ordered By: Dr. White on 11-30-2022 Creatinine [Mass/Vol] 0.87 mg/dL 0.70-1.30 [facility] Comment on above: The validity of the calculated GFR & GFRAA in patients over 70 years has not been determined. Clinical correlation is essential. Serum or plasma urea nitroge n measurement (mass/volume)Ordered By: Dr. White on 11-30-2022 Urea nitrogen [Mass/Vol] 17 mg/dL 7-18 [facility] Staphylococcus aureus DNA de tection by probe and target amplification methodOrdered By: Dr. Erazo on 11-30-2022 S. aureus DNA RUSTY+probe Ql (Unsp spec) Negative Negative [facility] Thin prep Papanicolaou smear with manual screeningOrdered By: Dr. Erazo on 11-30-2022 Thin prep Papanicolaou smear with manual screening 9 U/L 15-37 [facility] Thin prep Papanicolaou smear with manual screeningOrdered By: Dr. White on 11-30-2022 Thin prep Papanicolaou smear with manual screening 6 5-15 [facility] Absolute lymphocyte countOrd ered By: Dr. Garcia on 11-29-2022 Lymphocytes Auto (Unsp spec) [#/Vol] 1.30 10*3/uL 0.83-4.51 [facility] Basophil percentageOrdered B y: Dr. Garcia on 11-29-2022 Basophils/100 WBC (Bld) 0.6 % 0-1 [facility] Bilirubin [Mass/Vol] 0.30 mg/dL 0.20-1.00 [facility] Comment on above: For patients on eltr ombopag therapy, use of Dimension Salome TBIL is not recommended. Chloride [Moles/Vol] 99 mmol/L 98-107 [facility] Eosinophils/100 WBC (Bld) 3.2 % 0-5 [facility] Glucose [Mass/Vol] 79 mg/dL 74-106 [facility] Neutrophils (Bld) [#/Vol] 4.7 10*3/uL 2.0-7.7 [facility] Neutrophils/100 WBC (Bld) 65.1 % 47-70 [facility] Potassium [Moles/Vol] 3.8 mmol/L 3.5-5.1 [facility] Protein [Mass/Vol] 7.3 g/dL 6.4-8.2 [facility] Sodium [Moles/Vol] 135 mmol/L 136-145 [facility] WBC (Bld) [#/Vol] 7.2 10*3/uL 4.4-11.0 [facility] Blood erythrocytes count (nu mber/volume)Ordered By: Dr. Garcia on 11-29-2022 RBC (Bld) [#/Vol] 3.91 10*6/uL 4.6-6.2 [facility] Blood hemoglobin measurement (mass/volume)Ordered By: Dr. Garcia on 11-29-2022 Hemoglobin (Bld) [Mass/Vol] 12.7 g/dL 13.0-16.5 [facility] Blood lymphocytes/100 leukoc ytesOrdered By: Dr. Garcia on 11-29-2022 Lymphocytes/100 WBC (Bld) 18.1 % 19-41 [facility] Blood monocytes/100 leukocyt esOrdered By: Dr. Garcia on 11-29-2022 Monocytes/100 WBC (Bld) 12.6 % 0-10 [facility] Blood platelet mean volumeOr dered By: Dr. Garcia on 11-29-2022 Platelet mean volume (Bld) [Entitic vol] 8.9 fL 6.2-12.0 [facility] Determination of erythrocyte mean corpuscular volume (MCV)Ordered By: Dr. Garcia on 11-29-2022 MCV (RBC) [Entitic vol] 100.8 fL 80-94 [facility] Hematocrit Auto (Bld) [Volum e fraction]Ordered By: Dr. Garcia on 11-29-2022 Hematocrit (Bld) [Volume fraction] 39.4 % 40-54 [facility] Laboratory - Chemistry and C hemistry - challengeOrdered By: Dr. Garcia on 11-29-2022 ALP [Catalytic activity/Vol] 72 U/L 45-117 [facility] ALT [Catalytic activity/Vol] 16 U/L 16-61 [facility] CO2 [Moles/Vol] 28.0 mmol/L 21.0-32.0 [facility] Globulin (S) [Mass/Vol] 4.2 g/dL 2.2-4.2 [facility] Urea nitrogen/Creatinine [Mass ratio] 19.8 mg/mg 10-20 [facility] Laboratory - Hematology and Cell countsOrdered By: Dr. Garcia on 11-29-2022 Erythrocyte distribution width (RBC) [Entitic vol] 53.4 fL 35.1-43.9 [facility] Erythrocyte distribution width (RBC) [Ratio] 14.3 % 11.6-14.6 [facility] Immature granulocytes/100 WBC (Bld) 0.400 % 0.0-0.9 [facility] Comment on above: IG% - Immature Granu locytes (promyelocytes, myelocytes and metamyelocytes) > 1% indicates that a LEFT SHIFT is Present. MCH (RBC) [Entitic mass] 32.5 pg 27.0-32.0 [facility] Nucleated RBC/100 WBC (Bld) [Ratio] 0 % 0-5 [facility] ([facility]BC) [Mass/Vol]Or dered By: Dr. Garcia on 11-29-2022 MCHC (RBC) [Mass/Vol] 32.2 g/dL 32-36 [facility] No Panel InformationOrdered By: Dr. Garcia on 11-29-2022 Estimated GFR (MDRD) Amer 115 mL/min >60 [facility] Comment on above: GFR Calc Estimated GFR (MDRD) Non-Af Amer 95 mL/min >60 [facility] Comment on above: Non- GFR Calc Platelets bldOrdered By: Dr. Garcia on 11-29-2022 Platelets (Bld) [#/Vol] 402 10*3/uL 150-450 [facility] Serum or plasma C reactive p rotein measurement (mass/volume)Ordered By: Dr. Garcia on 11-29-2022 CRP [Mass/Vol] 152.00 mg/L 0.0-3.0 [facility] Comment on above: C-Reactive Protein ( CRP) provides useful information for thediagnosis, therapy and monitoring of inflammatory processesand associated diseases. For the evaluation of Relative Riskfor Cardiovascular Disease, a High Sensitivity CRP (HSCRP)should be ordered. Serum or plasma albumin toan urement (mass/volume)Ordered By: Dr. Garcia on 11-29-2022 Albumin [Mass/Vol] 3.1 g/dL 3.2-5.0 [facility] Serum or plasma albumin/glob ulin mass ratioOrdered By: Dr. Garcia on 11-29-2022 Albumin/Globulin [Mass ratio] 0.7 {ratio} 0.9-2.4 [facility] Serum or plasma calcium toan urement (mass/volume)Ordered By: Dr. Garcia on 11-29-2022 Calcium [Mass/Vol] 8.7 mg/dL 8.5-10.1 [facility] Serum or plasma creatinine m easurement (mass/volume)Ordered By: Dr. Garcia on 11-29-2022 Creatinine [Mass/Vol] 0.86 mg/dL 0.70-1.30 [facility] Comment on above: The validity of the calculated GFR & GFRAA in patients over 70 years has not been determined. Clinical correlation is essential. Serum or plasma urea nitroge n measurement (mass/volume)Ordered By: Dr. Garcia on 11-29-2022 Urea nitrogen [Mass/Vol] 17 mg/dL 7-18 [facility] Thin prep Papanicolaou smear with manual screeningOrdered By: Dr. Garcia on 11-29-2022 Thin prep Papanicolaou smear with manual screening 13 U/L 15-37 [facility] Thin prep Papanicolaou smear with manual screening 8 5-15 [facility] Absolute lymphocyte countOrd ered By: Dr. Stewart on 11-26-2022 Lymphocytes Auto (Unsp spec) [#/Vol] 1.46 10*3/uL 0.83-4.51 [facility] Basophil percentageOrdered B y: Dr. Stewart on 11-26-2022 Basophils/100 WBC (Bld) 0.9 % 0-1 [facility] Chloride [Moles/Vol] 104 mmol/L 98-107 [facility] Eosinophils/100 WBC (Bld) 3.7 % 0-5 [facility] Glucose [Mass/Vol] 101 mg/dL 74-106 [facility] Comment on above: Fasting Glucose resu lt from 100 to 125 mg/dL suggests IMPAIRED HOMEOSTASIS per A.D.A. criteria. Neutrophils (Bld) [#/Vol] 4.2 10*3/uL 2.0-7.7 [facility] Neutrophils/100 WBC (Bld) 62.6 % 47-70 [facility] Potassium [Moles/Vol] 4.0 mmol/L 3.5-5.1 [facility] Sodium [Moles/Vol] 139 mmol/L 136-145 [facility] WBC (Bld) [#/Vol] 6.7 10*3/uL 4.4-11.0 [facility] Blood erythrocytes count (nu mber/volume)Ordered By: Dr. Stewart on 11-26-2022 RBC (Bld) [#/Vol] 4.15 10*6/uL 4.6-6.2 [facility] Blood hemoglobin measurement (mass/volume)Ordered By: Dr. Stewart on 11-26-2022 Hemoglobin (Bld) [Mass/Vol] 13.2 g/dL 13.0-16.5 [facility] Blood lymphocytes/100 leukoc ytesOrdered By: Dr. Stewart on 11-26-2022 Lymphocytes/100 WBC (Bld) 21.7 % 19-41 [facility] Blood monocytes/100 leukocyt esOrdered By: Dr. Stewart on 11-26-2022 Monocytes/100 WBC (Bld) 10.7 % 0-10 [facility] Blood platelet mean volumeOr dered By: Dr. Stewart on 11-26-2022 Platelet mean volume (Bld) [Entitic vol] 8.8 fL 6.2-12.0 [facility] Determination of erythrocyte mean corpuscular volume (MCV)Ordered By: Dr. Stewart on 11-26-2022 MCV (RBC) [Entitic vol] 98.1 fL 80-94 [facility] Hematocrit Auto (Bld) [Volum e fraction]Ordered By: Dr. Stewart on 11-26-2022 Hematocrit (Bld) [Volume fraction] 40.7 % 40-54 [facility] Laboratory - Chemistry and C hemistry - challengeOrdered By: Dr. Stewart on 11-26-2022 CO2 [Moles/Vol] 29.0 mmol/L 21.0-32.0 [facility] Urea nitrogen/Creatinine [Mass ratio] 22.1 mg/mg 10-20 [facility] Laboratory - Hematology and Cell countsOrdered By: Dr. Stewart on 11-26-2022 Erythrocyte distribution width (RBC) [Entitic vol] 50.2 fL 35.1-43.9 [facility] Erythrocyte distribution width (RBC) [Ratio] 14.1 % 11.6-14.6 [facility] Immature granulocytes/100 WBC (Bld) 0.400 % 0.0-0.9 [facility] Comment on above: IG% - Immature Granu locytes (promyelocytes, myelocytes and metamyelocytes) > 1% indicates that a LEFT SHIFT is Present. MCH (RBC) [Entitic mass] 31.8 pg 27.0-32.0 [facility] Nucleated RBC/100 WBC (Bld) [Ratio] 0 % 0-5 [facility] MCHC Auto (RBC) [Mass/Vol]Or dered By: Dr. Stewart on 11-26-2022 MCHC (RBC) [Mass/Vol] 32.4 g/dL 32-36 [facility] No Panel InformationOrdered By: Dr. Stewart on 11-26-2022 Estimated Creatinine Clearance Calc 86.31 ml/min [facility] Estimated GFR (MDRD) Amer 131 mL/min >60 [facility] Comment on above: GFR Calc Estimated GFR (MDRD) Non-Af Amer 108 mL/min >60 [facility] Comment on above: Non- GFR Calc Platelets bldOrdered By: Dr. Stewart on 11-26-2022 Platelets (Bld) [#/Vol] 397 10*3/uL 150-450 [facility] Serum or plasma calcium toan urement (mass/volume)Ordered By: Dr. Stewart on 11-26-2022 Calcium [Mass/Vol] 9.0 mg/dL 8.5-10.1 [facility] Serum or plasma creatinine m easurement (mass/volume)Ordered By: Dr. Stewart on 11-26-2022 Creatinine [Mass/Vol] 0.77 mg/dL 0.70-1.30 [facility] Comment on above: The validity of the calculated GFR & GFRAA in patients over 70 years has not been determined. Clinical correlation is essential. Serum or plasma urea nitroge n measurement (mass/volume)Ordered By: Dr. Stewart on 11-26-2022 Urea nitrogen [Mass/Vol] 17 mg/dL 7-18 [facility] Thin prep Papanicolaou smear with manual screeningOrdered By: Dr. Stewart on 11-26-2022 Thin prep Papanicolaou smear with manual screening 6 5-15 [facility] Anaerobic cultureOrdered By: Dr. Garcia on 11-17-2022 Bacteria identified Anaer cx Nom (Unsp spec) No anaerobic bacteria isolated. [facility] Bacteria identified Cx Nom ( Wound)Ordered By: Dr. Garcia on 11-14-2022 Wound Culture Stenotrophomonas maltophilia [facility] Gram stain for investigation of transfusion reactionOrdered By: Dr. Garcia on 11-12-2022 Microscopic observation Gram stain Nom (Unsp spec) [facility] Laboratory - CoagulationOrde red By: Dr. Garcia on 11-12-2022 INR Coag (Bld) [Relative time] 2.4 {INR} [facility] Comment on above: Critical Value > 4.0 Whole blood prothrombin time Ordered By: Dr. Garcia on 11-12-2022 PT Coag (Bld) [Time] 27.8 s 11.7-14.9 [facility] Bacteria identified Cx Nom ( Wound)Ordered By: Dr. Garcia on 10-24-2022 Wound Culture Staphylococcus haemolyticus [facility] Wound Culture Stenotrophomonas maltophilia [facility] Anaerobic cultureOrdered By: Dr. Garcia on 10-23-2022 Bacteria identified Anaer cx Nom (Unsp spec) No anaerobic bacteria isolated. [facility] Gram stain for investigation of transfusion reactionOrdered By: Dr. Garcia on 10-20-2022 Microscopic observation Gram stain Nom (Unsp spec) [facility] Laboratory - CoagulationOrde red By: Dr. Garcia on 10-13-2022 INR Coag (Bld) [Relative time] 2.7 {INR} [facility] Comment on above: Critical Value > 4.0 Whole blood prothrombin time Ordered By: Dr. Garcia on 10-13-2022 PT Coag (Bld) [Time] 31.0 s 11.7-14.9 [facility] Laboratory - CoagulationOrde red By: Dr. Garcia on 09-08-2022 INR Coag (Bld) [Relative time] 2.2 {INR} [facility] Comment on above: Critical Value > 4.0 Whole blood prothrombin time Ordered By: Dr. Garcia on 09-08-2022 PT Coag (Bld) [Time] 25.8 s 11.7-14.9 [facility] Laboratory - CoagulationOrde red By: Dr. Garcia on 08-23-2022 INR Coag (Bld) [Relative time] 3.3 {INR} [facility] Comment on above: Critical Value > 4.0 Whole blood prothrombin time Ordered By: Dr. Garcia on 08-23-2022 PT Coag (Bld) [Time] 37.0 s 11.7-14.9 [facility] Laboratory - CoagulationOrde red By: Dr. Garcia on 10-14-2022 INR Coag (Bld) [Relative time] 2.2 {INR} [facility] Comment on above: Critical Value > 4.0 Whole blood prothrombin time Ordered By: Dr. Garcia on 07-23-2022 PT Coag (Bld) [Time] 25.3 s 11.7-14.9 [facility] Laboratory - CoagulationOrde red By: Dr. Garcia on 07-16-2022 INR Coag (Bld) [Relative time] 1.3 {INR} [facility] Comment on above: Critical Value > 4.0 Whole blood prothrombin time Ordered By: Dr. Garcia on 07-16-2022 PT Coag (Bld) [Time] 16.5 s 11.7-14.9 [facility] Basophil percentageon 2021 Basophil percentage > 8.0 AI 0.0-0.9 [facility] Work Phone: Basophil percentage < 0.2 AI 0.0-0.9 [facility] Work Phone: Erythrocyte sedimentation ra davis 06-23-2022 ESR (Bld) [Velocity] 3 mm/h 0-20 [facility] Work Phone: INR in Blood by Coagulation assayon 06-23-2022 INR Coag (Bld) [Relative time] 2.2 {INR} [facility] Work Phone: Laboratory - Coagulationon 0 06-23-2022 PT Coag (PPP) [Time] 24.1 s 11.7-14.9 [facility] Work Phone: No Panel Informationon 06-23 Anti-Nuclear Antibody Screen Positive Negative [facility] Work Phone: Comment on above: Performed at: [facility] [address] [id number] Director: Sebastian Juárez PhD, Phone: [phone] Centromere B Antibody <0.2 AI 0.0-0.9 [facility] Work Phone: PIERCING MACHINE OPERATOR Antibody <0.2 AI 0.0-0.9 [facility] Work Phone: Serum DNA double strand anti body assay (units/volume)on 06-23-2022 DNA double strand Ab Qn (S) 5 [IU]/mL 0-9 [facility] Work Phone: Comment on above: Negative <5 Equivoca l 5 - 9 Positive >9 Serum Leelee-1 antibody assay (u nits/volume)on 06-23-2022 Leelee-1 extractable nuclear Ab Qn (S) <0.2 AI 0.0-0.9 [facility] Work Phone: [phone] Serum Scl-70 extractable nuc lear antibody assay (units/volume)on 06-23-2022 SCL-70 extractable nuclear Ab Qn (S) <0.2 AI 0.0-0.9 [facility] Work Phone: [phone] Serum Sheikh extractable nucl ear antibody detectionon 06-23-2022 Sheikh extractable nuclear Ab Ql (S) <0.2 AI 0.0-0.9 [facility] Work Phone: Serum cyclic citrullinated p eptide IgG antibody assay (units/volume)on 06-23-2022 Cyclic citrullinated peptide IgG Qn 3 units 0-19 [facility] Work Phone: Comment on above: Negative <20 Weak po sitive 20 - 39 Moderate positive 40 - 59 Strong positive >59Performed at: [facility] [id number] Director: Kamini Wadsworth MD, Phone: [phone] Serum nuclear antibody titer by immunofluorescenceon 06-23-2022 Nuclear Ab IF (S) [Titer] See comment [facility] Work Phone: Comment on above: TEST RESULT LIMITSAn tinuclear Antibodies, IFA Negative Negative <1:80 Borderline 1:80 Positive >1:80ICAP nomenclature: AC-0For more information about Hep-2 cell patterns use ANApatterns.org, the official website for the International Consensus on Antinuclear Antibody (FITO) Patterns (ICAP) ___ TESTING PERFORMED AT [facility]. ORIGINAL REPORT ON FILE IN LAB CONTAINS ADDITIONAL TEST SITE INFORMATION. Serum or plasma C reactive p rotein measurement (mass/volume)on 06-23-2022 CRP [Mass/Vol] 20.60 mg/L 0.0-3.0 [facility] Work Phone: Comment on above: C-Reactive Protein ( CRP) provides useful information for thediagnosis, therapy and monitoring of inflammatory processesand associated diseases. For the evaluation of Relative Riskfor Cardiovascular Disease, a High Sensitivity CRP (HSCRP)should be ordered. Serum rheumatoid factor dete ctionon 06-23-2022 Rheumatoid factor Ql (S) < 10.0 IU/mL <15 [facility] Work Phone: Absolute lymphocyte counton 03-23-2022 Lymphocytes Auto (Unsp spec) [#/Vol] 1.33 10*3/uL 0.83-4.51 [facility] Work Phone: Basophil percentageon 2021 Basophils/100 WBC (Bld) 0.9 % 0-1 [facility] Work Phone: [phone] Bilirubin [Mass/Vol] 0.30 mg/dL 0.20-1.00 [facility] Work Phone: [phone] Comment on above: For patients on eltr ombopag therapy, use of Dimension Salome TBIL is not recommended. Chloride [Moles/Vol] 105 mmol/L 98-107 [facility] Work Phone: Cholesterol [Mass/Vol] 235 mg/dL <200 [facility] Work Phone: Comment on above: <200 mg/dL Desirable 200-240 mg/dL Borderline >240 mg/dL High Risk Eosinophils/100 WBC (Bld) 2.9 % 0-5 [facility] Work Phone: Glucose [Mass/Vol] 88 mg/dL 74-106 [facility] Work Phone: Neutrophils (Bld) [#/Vol] 1.7 10*3/uL 2.0-7.7 [facility] Work Phone: Neutrophils/100 WBC (Bld) 48.5 % 47-70 [facility] Work Phone: Potassium [Moles/Vol] 3.8 mmol/L 3.5-5.1 [facility] Work Phone: Protein [Mass/Vol] 7.4 g/dL 6.4-8.2 [facility] Work Phone: Sodium [Moles/Vol] 140 mmol/L 136-145 [facility] Work Phone: [phone] Triglyceride [Mass/Vol] 71 mg/dL <199 [facility] Work Phone: Comment on above: The drugs N-Acetylcy steine and Metamizole may falsely depress this assay.Serum Triglycerides Reference Interval Normal <150 mg/dL Borderline high 150 - 199 mg/dL High 200 - 499 mg/dL Very High > or = 500 mg/dL WBC (Bld) [#/Vol] 3.5 10*3/uL 4.4-11.0 [facility] Work Phone: Blood erythrocytes count (nu mber/volume)on 03-23-2022 RBC (Bld) [#/Vol] 4.86 10*6/uL 4.6-6.2 [facility] Work Phone: Blood hemoglobin measurement (mass/volume)on 03-23-2022 Hemoglobin (Bld) [Mass/Vol] 15.2 g/dL 13.0-16.5 [facility] Work Phone: Blood lymphocytes/100 leukoc yteson 03-23-2022 Lymphocytes/100 WBC (Bld) 38.0 % 19-41 [facility] Work Phone: Blood monocytes/100 leukocyt eson 03-23-2022 Monocytes/100 WBC (Bld) 9.4 % 0-10 [facility] Work Phone: [phone] Blood platelet mean volumeon 03-23-2022 Platelet mean volume (Bld) [Entitic vol] 10.0 fL 6.2-12.0 [facility] Work Phone: [phone] Determination of erythrocyte mean corpuscular volume (MCV)on 03-23-2022 MCV (RBC) [Entitic vol] 97.7 fL 80-94 [facility] Work Phone: Hematocrit Auto (Bld) [Volum e fraction]on 03-23-2022 Hematocrit (Bld) [Volume fraction] 47.5 % 40-54 [facility] Work Phone: Laboratory - Chemistry and C hemistry - challengeon 03-23-2022 ALP [Catalytic activity/Vol] 94 U/L 45-117 [facility] Work Phone: [phone] ALT [Catalytic activity/Vol] 24 U/L 16-61 [facility] Work Phone: [phone] CO2 [Moles/Vol] 29.0 mmol/L 21.0-32.0 [facility] Work Phone: [phone] Globulin (S) [Mass/Vol] 3.6 g/dL 2.2-4.2 [facility] Work Phone: [phone] Urea nitrogen/Creatinine [Mass ratio] 19.0 mg/mg 10-20 [facility] Work Phone: [phone] Laboratory - Hematology and Cell countson 03-23-2022 Erythrocyte distribution width (RBC) [Entitic vol] 51.2 fL 35.1-43.9 [facility] Work Phone: [phone] Erythrocyte distribution width (RBC) [Ratio] 14.2 % 11.6-14.6 [facility] Work Phone: [phone] Immature granulocytes/100 WBC (Bld) 0.300 % 0.0-0.9 [facility] Work Phone: Comment on above: IG% - Immature Granu locytes (promyelocytes, myelocytes and metamyelocytes) > 1% indicates that a LEFT SHIFT is Present. MCH (RBC) [Entitic mass] 31.3 pg 27.0-32.0 [facility] Work Phone: [phone] Nucleated RBC/100 WBC (Bld) [Ratio] 0 % 0-5 [facility] Work Phone: [phone] MCHC Auto (RBC) [Mass/Vol]on 03-23-2022 MCHC (RBC) [Mass/Vol] 32.0 g/dL 32-36 [facility] Work Phone: No Panel Informationon 03-23 Estimated GFR (MDRD) Amer 118 mL/min >60 [facility] Work Phone: [phone] Comment on above: GFR Calc Estimated GFR (MDRD) Non-Af Amer 97 mL/min >60 [facility] Work Phone: [phone] Comment on above: Non- GFR Calc Thyroid Stimulating Hormone (TSH) 2.78 uIU/mL 0.358-3.74 [facility] Work Phone: [phone] Vitamin D 25-Hydroxy 25.7 ng/mL [facility] Work Phone: [phone] Comment on above: Vitamin D 25(OH) Sta tus Range Deficiency <20 ng/mL (50nmol/L) Insufficiency 20 - 30 ng/mL (50 - 75 nmol/L) Sufficiency 30 - 100 ng/mL (75 - 250 nmol/L) Toxicity >100 ng/mL (>250 nmol/L) Platelets bldon 03-23-2022 Platelets (Bld) [#/Vol] 225 10*3/uL 150-450 [facility] Work Phone: [phone] Serum or plasma albumin toan urement (mass/volume)on 03-23-2022 Albumin [Mass/Vol] 3.8 g/dL 3.2-5.0 [facility] Work Phone: [phone] Serum or plasma albumin/glob ulin mass ratioon 03-23-2022 Albumin/Globulin [Mass ratio] 1.1 {ratio} 0.9-2.4 [facility] Work Phone: Serum or plasma calcium toan urement (mass/volume)on 03-23-2022 Calcium [Mass/Vol] 8.9 mg/dL 8.5-10.1 [facility] Work Phone: Serum or plasma cholesterol in HDL measurement (mass/volume)on 03-23-2022 Cholesterol in HDL [Mass/Vol] 79 mg/dL >40 [facility] Work Phone: Comment on above: The drugs N-Acetylcy steine and Metamizole may falsely depress this assay. Reference Range HDL <40 mg/dL Low HDL Cholesterol HDL >or= 60 mg/dL High HDL Cholesterol Serum or plasma cholesterol in VLDL measurement (mass/volume)on 03-23-2022 Cholesterol in VLDL [Mass/Vol] 14 mg/dL 5-40 [facility] Work Phone: Serum or plasma creatinine m easurement (mass/volume)on 03-23-2022 Creatinine [Mass/Vol] 0.84 mg/dL 0.70-1.30 [facility] Work Phone: Comment on above: The validity of the calculated GFR & GFRAA in patients over 70 years has not been determined. Clinical correlation is essential. Serum or plasma low density lipoprotein (LDL) cholesterol measurement (mass/volume)on 03-23-2022 Cholesterol in LDL [Mass/Vol] 142 mg/dL 0-130 [facility] Work Phone: Serum or plasma urea nitroge n measurement (mass/volume)on 03-23-2022 Urea nitrogen [Mass/Vol] 16 mg/dL 7-18 [facility] Work Phone: [phone] Thin prep Papanicolaou smear with manual screeningon 03-23-2022 Thin prep Papanicolaou smear with manual screening 12 U/L 15-37 [facility] Work Phone: [phone] Thin prep Papanicolaou smear with manual screening 6 5-15 [facility] Work Phone: [phone] INR in Blood by Coagulation assayon 03-10-2022 INR Coag (Bld) [Relative time] 2.2 {INR} [facility] Work Phone: Laboratory - Coagulationon 0 03-10-2022 PT Coag (PPP) [Time] 24.3 s 11.7-14.9 [facility] Work Phone: CT Head or Brain w/o Contras ton 05-14-2021 CT Head or Brain w/o Contrast [facility]: [id number] Tomography ACCESSION EXAM DATE/TIME PROCEDURE ORDERING PROVIDER [id number] 05/14/2021 17:[address] Head or Brain w/o MD HONORIO, ADRIANA Contrast CPT code 44531 Reason For Exam (CT Head or Brain w/o Contrast) leg weakness Report CT HEAD: CLINICAL INDICATION: History of cerebral infarct with increasing weakness on the left side with left facial droop TECHNIQUE: Transaxial CT sequence performed through the head with 3 mm reconstruction. Sagittal and Coronal reconstruction images included. Dose reduction employed with automated exposure control. COMPARISON: None FINDINGS: Ventricles and Extra-axial spaces: Normal in size and morphology for the patient's age. No abnormal extracerebral collection identified. Cerebral and cerebellar parenchyma: Low-attenuation within the right basal ganglia extending over dimension of up to 1.4 cm is likely an old lacunar infarct. There is no other focal lesion throughout the cerebrum or cerebellum. Hemorrhage: None Brainstem: Subtle low-attenuation focus in the left ventral blayne extends over region of up to 1 cm Visualized Paranasal sinuses: Thickening is noted within bilateral anterior ethmoid air cells. Remaining paranasal sinuses are clear. Mastoid air cells: Normal Visualized Orbits: Normal Calvarium and skull base: Normal Other: Atherosclerotic calcification within the distal internal carotid and vertebral arteries is noted. IMPRESSION: 1. Subtle diminished attenuation in the left ventral blayne. While this may be artifact, infarct is considered. Perhaps MRI would be appropriate. 2. Old infarct in the right basal ganglia 3. No other acute intracranial abnormality. Computed Tomography Report CT ANGIOGRAPHY HEAD AND NECK: TECHNIQUE: Transaxial sequence performed from the upper mediastinum through the skull during dynamic intravenous infusion of 75 mL of nonionic contrast media, injected at a high flow rate following a hat and cap parts cutter hand study. Multiplanar and 3D MIP reconstruction performed concurrently on an independent viewing workstation. Measurement of carotid stenosis is a ratio based on conventional angiographic data from the NASCET trials with the smallest caliber of the internal carotid as the numerator and normal post-stenotic internal carotid caliber as denominator. Dose reduction was employed with automated exposure control. COMPARISON: None. FINDINGS: Aortic arch and great vessel origins: Normal. Right common and external carotid: Normal. Right internal carotid: Minimal stenosis near the origin in the range of less than 30 percent. Left common and external carotid: Normal. Left internal carotid: Minimal stenosis near the origin in the range of less than 30 percent. Cervical vertebral arteries: The right is diminutive compared to the left. Intracranial arteries: Distal internal carotid arteries: Extensive atherosclerotic plaque is noted without hemodynamically significant stenosis Anterior cerebral arteries: Normal Middle cerebral arteries: Normal Distal vertebral arteries: Diminutive right distal vertebral is noted. There is atherosclerotic plaque within the intracranial segment of the left vertebral resulting in minor stenosis Basilar artery: Normal Posterior cerebral arteries: Normal Anterior communicating artery: Normal Posterior communicating arteries: Normal Aneurysm or vascular malformation: None identified. Neck: No cystic or solid mass within the deep or superficial spaces of the neck. Unremarkable salivary glands and thyroid. No enlarged lymph nodes. No abnormality within the airways. Lung apices are normal. Spurring and disc space narrowing is noted at C5-C6 and C6-C7. There is no cervical bony spinal stenosis. IMPRESSION: 1. No hemodynamically significant internal carotid artery stenosis 2. Dominant left vertebral artery with atherosclerotic plaque in the intracranial segment without significant stenosis 3. Calcified plaque within the distal internal carotid arteries without other intracranial arterial abnormality. Computed Tomography Report Report Dictated on Workstation: [facility] Final Dictating Physician: MD JEAN BAPTISTE JEFFREY Signed Date and Time: 05/14/2021 5:24 pm Signed by: MD JEAN BAPTISTE JEFFREY Transcribed Date and Time: 05/14/2021 5:26 Normal [facility] CTA Head/Neck w/ + w/o contr afshan 05-14-2021 CTA Head/Neck w/ + w/o contrast [facility]: [id number] Computed Tomography ACCESSION EXAM DATE/TIME PROCEDURE ORDERING PROVIDER [id number] 05/14/2021 17:00 EDT CTA Head/Neck w/ + w/o MD HONORIO, ADRIANA contrast CPT code [id number] Reason For Exam (CTA Head/Neck w/ + w/o contrast) leg weakness, hx of stroke Report CT HEAD: CLINICAL INDICATION: History of cerebral infarct with increasing weakness on the left side with left facial droop TECHNIQUE: Transaxial CT sequence performed through the head with 3 mm reconstruction. Sagittal and Coronal reconstruction images included. Dose reduction employed with automated exposure control. COMPARISON: None FINDINGS: Ventricles and Extra-axial spaces: Normal in size and morphology for the patient's age. No abnormal extracerebral collection identified. Cerebral and cerebellar parenchyma: Low-attenuation within the right basal ganglia extending over dimension of up to 1.4 cm is likely an old lacunar infarct. There is no other focal lesion throughout the cerebrum or cerebellum. Hemorrhage: None Brainstem: Subtle low-attenuation focus in the left ventral blayne extends over region of up to 1 cm Visualized Paranasal sinuses: Thickening is noted within bilateral anterior ethmoid air cells. Remaining paranasal sinuses are clear. Mastoid air cells: Normal Visualized Orbits: Normal Calvarium and skull base: Normal Other: Atherosclerotic calcification within the distal internal carotid and vertebral arteries is noted. IMPRESSION: 1. Subtle diminished attenuation in the left ventral blayne. While this may be artifact, infarct is considered. Perhaps MRI would be appropriate. 2. Old infarct in the right basal ganglia Computed Tomography Report 3. No other acute intracranial abnormality. CT ANGIOGRAPHY HEAD AND NECK: TECHNIQUE: Transaxial sequence performed from the upper mediastinum through the skull during dynamic intravenous infusion of 75 mL of nonionic contrast media, injected at a high flow rate following a hat and cap parts cutter hand study. Multiplanar and 3D MIP reconstruction performed concurrently on an independent viewing workstation. Measurement of carotid stenosis is a ratio based on conventional angiographic data from the NASCET trials with the smallest caliber of the internal carotid as the numerator and normal post-stenotic internal carotid caliber as denominator. Dose reduction was employed with automated exposure control. COMPARISON: None. FINDINGS: Aortic arch and great vessel origins: Normal. Right common and external carotid: Normal. Right internal carotid: Minimal stenosis near the origin in the range of less than 30 percent. Left common and external carotid: Normal. Left internal carotid: Minimal stenosis near the origin in the range of less than 30 percent. Cervical vertebral arteries: The right is diminutive compared to the left. Intracranial arteries: Distal internal carotid arteries: Extensive atherosclerotic plaque is noted without hemodynamically significant stenosis Anterior cerebral arteries: Normal Middle cerebral arteries: Normal Distal vertebral arteries: Diminutive right distal vertebral is noted. There is atherosclerotic plaque within the intracranial segment of the left vertebral resulting in minor stenosis Basilar artery: Normal Posterior cerebral arteries: Normal Anterior communicating artery: Normal Posterior communicating arteries: Normal Aneurysm or vascular malformation: None identified. Neck: No cystic or solid mass within the deep or superficial spaces of the neck. Unremarkable salivary glands and thyroid. No enlarged lymph nodes. No abnormality within the airways. Lung apices are normal. Spurring and disc space narrowing is noted at C5-C6 and C6-C7. There is no cervical bony spinal stenosis. IMPRESSION: 1. No hemodynamically significant internal carotid artery stenosis 2. Dominant left vertebral artery with atherosclerotic plaque in the intracranial segment without significant stenosis 3. Calcified plaque within the distal internal carotid arteries without other intracranial arterial abnormality. Computed Tomography Report Report Dictated on Workstation: [facility] Final Dictating Physician: MD JEAN BAPTISTE JEFFREY Signed Date and Time: 05/14/2021 5:24 pm Signed by: MD JEAN BAPTISTE JEFFREY Transcribed Date and Time: 05/14/2021 5:25 Normal [facility] Comp Metabolic Panelon 05-14 ALP [Catalytic activity/Vol] 99 U/L Normal 38-126 [facility] Comment on above: Performed By: #### B NP3, PT, TROPN, CMP3 #### [facility] [address] [place] [address] ALT [Catalytic activity/Vol] 16 U/L Normal 0-49 [facility] Comment on above: Result Comment: The ALT test is performed by an updated assay method. Please note that the reference intervals have been changed and are now sex specific. Performed By: #### B NP3, PT, TROPN, CMP3 #### [facility] [address] [place] [address] Calcium [Mass/Vol] 9.5 mg/dL Normal 8.4-10.4 [facility] Comment on above: Performed By: #### B NP3, PT, TROPN, CMP3 #### [facility] [address] [place] [address] Glucose [Mass/Vol] 88 mg/dL Normal 70-100 [facility] Comment on above: Performed By: #### B NP3, PT, TROPN, CMP3 #### [facility] [address] [place] [address] Urea nitrogen [Mass/Vol] 13 mg/dL Normal 7-20 [facility] Comment on above: Performed By: #### B NP3, PT, TROPN, CMP3 #### [facility] [address] [place] [address] Anion gap [Moles/Vol] 3 mmol/L Normal 3-13 [facility] Comment on above: Performed By: #### B NP3, PT, TROPN, CMP3 #### [facility] [address] [place] [address] AST [Catalytic activity/Vol] 26 U/L Normal 15-46 [facility] Comment on above: Performed By: #### B NP3, PT, TROPN, CMP3 #### [facility] [address] [place] [address] Bilirubin [Mass/Vol] 0.4 mg/dL Normal 0.2-1.3 [facility] Comment on above: Performed By: #### B NP3, PT, TROPN, CMP3 #### [facility] [address] [place] [address] CO2 [Moles/Vol] 30 mmol/L Normal 22-30 [facility] Comment on above: Performed By: #### B NP3, PT, TROPN, CMP3 #### [facility] [address] [place] [address] Creatinine [Mass/Vol] 0.67 mg/dL Normal 0.52-1.25 [facility] Comment on above: Performed By: #### B NP3, PT, TROPN, CMP3 #### [facility] [address] [place] [address] eGFR OTHER > 90.0 Normal >60 [facility] Comment on above: Result Comment: KDIG O guidelines provide the following GFR categories: Stage GFR(ml/min/1.73 m2) Terms G1 >=90 Normal or high G2 60-89 Mildly decreased* G3a 45-59 Mildly to moderately decreased G3b 30-44 Moderately to severely decreased G4 15-29 Severely decreased G5 <15 Kidney failure *Relative to young adult level. In the absence of evidence of kidney damage, neither GFR category G1 nor G2 fulfill the criteria for CKD. The CKD-EPI equation is validated in individuals 18 years of age and older. Currently the best equation for estimating glomerular filtration rate (GFR) from serum creatinine in children is the Bedside Perry equation. It is less accurate in patients with extremes of muscle mass, restriction of dietary protein, ingestion of creatine, extra-renal metabolism of creatinine, or treatment with medications that affect renal tubular creatinine secretion. Performed By: #### B NP3, PT, TROPN, CMP3 #### [facility] [address] [place] [address] GFR/1.73 sq M.predicted among blacks MDRD (S/P/Bld) [Vol rate/Area] mL/min/{1.73_m2} Normal >60 [facility] Comment on above: Performed By: #### B NP3, PT, TROPN, CMP3 #### [facility] [address] [place] [address] Protein [Mass/Vol] 7.8 g/dL Normal 6.3-8.2 [facility] Comment on above: Performed By: #### B NP3, PT, TROPN, CMP3 #### [facility] [address] [place] [address] Chloride [Moles/Vol] 104 mmol/L Normal 98-107 [facility] Comment on above: Performed By: #### B NP3, PT, TROPN, CMP3 #### [facility] [address] [place] [address] Potassium [Moles/Vol] 4.5 mmol/L Normal 3.5-5.1 [facility] Comment on above: Performed By: #### B NP3, PT, TROPN, CMP3 #### [facility] [address] [place] [address] Sodium [Moles/Vol] 137 mmol/L Normal 135-145 [facility] Comment on above: Performed By: #### B NP3, PT, TROPN, CMP3 #### [facility] [address] [place] [address] Albumin [Mass/Vol] 4.6 g/dL Normal 3.5-5.0 [facility] Comment on above: Performed By: #### B NP3, PT, TROPN, CMP3 #### [facility] [address] [place] [address] Glucose,Bedsideon 05-14-2021 Glucose [Mass/Vol] 76 mg/dL Normal 70-100 [facility] Comment on above: Result Comment: Test performed by glucose meter. Results may be 10%-15% lower than serum/plasma values. (CLIA ID [id number]) Performed By: #### B GLU #### [facility] [address] [place] [address] Hemogram w/ Autodiffon 05-14 Abs Baso Cnt 0.0 10*3/uL Normal 0.0-0.2 [facility] Comment on above: Performed By: #### H EMDF #### [facility] [address] [place], [place] [address] Abs Neutrophile Cnt 2.2 10*3/uL Normal 1.8-7.0 [facility] Comment on above: Performed By: #### H EMDF #### [facility] [address] [place] [address] Basophils/100 WBC (Bld) 1.0 % Normal 0.0-2.0 [facility] Comment on above: Performed By: #### H EMDF #### [facility] [address] [place] [address] Eosinophils (Bld) [#/Vol] 0.1 10*3/uL Normal 0.0-0.5 [facility] Comment on above: Performed By: #### H EMDF #### [facility] [address] [place] [address] Eosinophils/100 WBC (Bld) 1.8 % Normal 1.0-6.0 [facility] Comment on above: Performed By: #### H EMDF #### [address] [place] [address] Erythrocyte distribution width (RBC) [Ratio] 14.4 % Normal 11.5-14.5 [facility] Comment on above: Performed By: #### H EMDF #### [facility] [address] [place] [address] Granulocytes/100 WBC (Bld) 50.4 % Normal 40.0-80.0 [facility] Comment on above: Performed By: #### H EMDF #### [facility] [address] [place] [address] Hematocrit (Bld) [Volume fraction] 45.3 % Normal 40.0-52.0 [facility] Comment on above: Performed By: #### H EMDF #### [facility] [address] [place] [address] Hemoglobin (Bld) [Mass/Vol] 15.2 g/dL Normal 13.0-18.0 [facility] Comment on above: Performed By: #### H EMDF #### [facility] [address] [place] [address] Lymphocytes (Bld) [#/Vol] 1.6 10*3/uL Normal 1.0-4.3 [facility] Comment on above: Performed By: #### H EMDF #### [facility] [address] [place] [address] Lymphocytes/100 WBC (Bld) 35.9 % Normal 20.0-40.0 [facility] Comment on above: Performed By: #### H EMDF #### [facility] [address] [place] [address] MCH (RBC) [Entitic mass] 33.5 pg Normal 26.0-34.0 [facility] Comment on above: Performed By: #### H EMDF #### [facility] [address] [place] [address] MCHC 33.6 % Normal 32.0-36.0 [facility] Comment on above: Performed By: #### H EMDF #### [facility] [address] [place] [address] MCV (RBC) [Entitic vol] 99.5 fL High 80.0-98.0 [facility] Comment on above: Performed By: #### H EMDF #### [facility] [address] [place] [address] Monocytes (Bld) [#/Vol] 0.5 10*3/uL Normal 0.0-0.8 [facility] Comment on above: Performed By: #### H EMDF #### [facility] [address] [place] [address] Monocytes/100 WBC (Bld) 10.9 % High 2.0-10.0 [facility] Comment on above: Performed By: #### H EMDF #### [facility] [address] [place] [address] Platelet mean volume (Bld) [Entitic vol] 8.0 fL Normal 7.4-10.4 [facility] Comment on above: Performed By: #### H EMDF #### [facility] [address] [place] [address] Platelets (Bld) [#/Vol] 247 10*3/uL Normal 140-440 [facility] Comment on above: Performed By: #### H EMDF #### [facility] [address] [place] [address] RBC (Bld) [#/Vol] 4.55 10*6/uL Normal 4.40-5.90 [facility] Comment on above: Performed By: #### H EMDF #### [facility] [address] [place] [address] WBC (Bld) [#/Vol] 4.4 10*3/uL Normal 3.6-10.7 [facility] Comment on above: Performed By: #### H EMDF #### [facility] [address] [place] [address] NT pro BNPon 05-14-2021 Natriuretic peptide B (Bld) [Mass/Vol] 118 pg/mL Normal 0-125 [facility] Comment on above: Performed By: #### B NP3, PT, TROPN, CMP3 #### [facility] [address] [place] [address] Prothrombin Timeon INR 1.7 High 0.9-1.1 [facility] Comment on above: Result Comment: Niko mmended Anticoagulant Therapy: SEE BELOW ----- INR of 2.0 - 3.0 : - Prophylaxis of Venous Thrombosis (high-risk surgery) - Treatment of Venous Thrombosis - Treatment of Pulmonary Embolism (Includes tissue heart valves, Acute Myocardial Infarction to prevent systemic embolism, Valvular Heart Disease, and Atrial Fibrillation) ----- INR of 2.5 - 3.5 : - Mechanical Prosthetic Valves (high risk) - If oral anticoagulant therapy is used to prevent Myocardial Infarction Performed By: #### B NP3, PT, TROPN, CMP3 #### [facility] [address] [place] [address] PT Coag (PPP) [Time] 18.2 s High 9.0-12.0 [facility] Comment on above: Result Comment: . Performed By: #### B NP3, PT, TROPN, CMP3 #### [facility] [address] [place] [address] Troponin Ion 05-14-2021 Troponin I.cardiac [Mass/Vol] ng/mL Normal 0.000-0.034 [facility] Comment on above: Result Comment: . Performed By: #### B NP3, PT, TROPN, CMP3 #### [facility] [address] [place] [address] Vital Signs Date Time Vital Sign Value Performing Clinician Jason bose 05-03-2025 11:39-0400 Body temperature 97.8 [degF] Dr. Patricia Garcia DO Work Phone: [facility] 05-03-2025 11:39-0400 Diastolic blood pressure 80 mm[Hg] Dr. Patricia Garcia DO Work Phone: [facility] 05-03-2025 11:39-0400 Heart rate 70 /min Dr. Patricia Garcia DO Work Phone: [facility] 05-03-2025 11:39-0400 Respiratory rate 18 /min Dr. Patricia Garcia DO Work Phone: [facility] 05-03-2025 11:39-0400 Systolic blood pressure 135 mm[Hg] Dr. Patricia Garcia DO Work Phone: [facility] 04-05-2025 11:53-0400 Body temperature 96.9 [degF] Dr. Patricia Garcia DO Work Phone: [facility] 04-05-2025 11:53-0400 Diastolic blood pressure 100 mm[Hg] Dr. Patricia Garcia DO Work Phone: [facility] 04-05-2025 11:53-0400 Heart rate 61 /min Dr. Patricia Garcia DO Work Phone: [facility] 04-05-2025 11:53-0400 Respiratory rate 18 /min Dr. Patricia Garcia DO Work Phone: [facility] 04-05-2025 11:53-0400 Systolic blood pressure 171 mm[Hg] Dr. Patricia Garcia DO Work Phone: [facility] 03-08-2025 11:32-0400 Body temperature 96.5 [degF] Dr. Patricia Garcia DO Work Phone: [facility] 03-08-2025 11:32-0400 Diastolic blood pressure 89 mm[Hg] Dr. Patricia Garcia DO Work Phone: [facility] 03-08-2025 11:32-0400 Heart rate 68 /min Dr. Patricia Garcia DO Work Phone: [facility] 03-08-2025 11:32-0400 Respiratory rate 16 /min Dr. Patricia Garcia DO Work Phone: [facility] 03-08-2025 11:32-0400 Systolic blood pressure 138 mm[Hg] Dr. Patricia Garcia DO Work Phone: [facility] 02-22-2025 10:28-0400 Diastolic blood pressure 73 mm[Hg] Dr. Patricia Garcia DO Work Phone: [facility] 02-22-2025 10:28-0400 Heart rate 67 /min Dr. Patricia Garcia DO Work Phone: [facility] 02-22-2025 10:28-0400 Respiratory rate 18 /min Dr. Patricia Garcia DO Work Phone: [facility] 02-22-2025 10:28-0400 Systolic blood pressure 117 mm[Hg] Dr. Patricia Garcia DO Work Phone: [facility] 02-08-2025 11:17-0400 Body temperature 96.1 [degF] Dr. Patricia Garcia DO Work Phone: [facility] 02-01-2025 09:54-0400 Body temperature 97.1 [degF] Dr. Patricia Garcia DO Work Phone: [facility] 02-01-2025 09:54-0400 Diastolic blood pressure 78 mm[Hg] Dr. Patricia Garcia DO Work Phone: [facility] 02-01-2025 09:54-0400 Heart rate 68 /min Dr. Patricia Garcia DO Work Phone: [facility] 02-01-2025 09:54-0400 Respiratory rate 16 /min Dr. Patricia Garcia DO Work Phone: [facility] 02-01-2025 09:54-0400 Systolic blood pressure 135 mm[Hg] Dr. Patricia Garcia DO Work Phone: [facility] 01-29-2025 10:15-0400 Body temperature 97.8 [degF] Dr. Patricia Garcia DO Work Phone: [facility] 01-29-2025 10:15-0400 Body weight 121.[address] Patricia Garcia DO Work Phone: [facility] 01-29-2025 10:15-0400 Diastolic blood pressure 68 mm[Hg] Dr. Patricia Garcia DO Work Phone: [facility] 01-29-2025 10:15-0400 Heart rate 72 /min Dr. Patricia Garcia DO Work Phone: [facility] 01-29-2025 10:15-0400 Respiratory rate 16 /min Dr. Patricia Garcia DO Work Phone: [facility] 01-29-2025 10:15-0400 SaO2% (BldA) [Mass fraction] 98 % Dr. Patricia Garcia DO Work Phone: [facility] 01-29-2025 10:15-0400 Systolic blood pressure 111 mm[Hg] Dr. Patricia Garcia DO Work Phone: [facility] 01-08-2025 14:40-0400 Body temperature 96.8 [degF] Dr. Patricia Garcia DO Work Phone: [facility] 01-08-2025 14:40-0400 Diastolic blood pressure 54 mm[Hg] Dr. Patricia Garcia DO Work Phone: [facility] 01-08-2025 14:40-0400 Heart rate 82 /min Dr. Patricia Garcia DO Work Phone: [facility] 01-08-2025 14:40-0400 Respiratory rate 16 /min Dr. Patricia Garcia DO Work Phone: [facility] 01-08-2025 14:40-0400 SaO2% (BldA) [Mass fraction] 98 % Dr. Patricia Garcia DO Work Phone: [facility] 01-08-2025 14:40-0400 Systolic blood pressure 102 mm[Hg] Dr. Patricia Garcia DO Work Phone: [facility] 01-08-2025 05:07-0400 Body mass index (BMI) [Ratio] 45.1 kg/m2 Dr. Patricia Garcia DO Work Phone: [facility] 01-08-2025 05:07-0400 Body weight 119.[address] Patricia Garcia DO Work Phone: [facility] 01-07-2025 22:00-0400 Inhaled oxygen flow rate 2 L/min Dr. Patricia Garcia DO Work Phone: [facility] 01-07-2025 21:16-0400 SaO2% (BldA) [Mass fraction] 96 % Dr. Patricia Garcia DO Work Phone: [facility] 01-07-2025 21:15-0400 Body temperature 99.8 [degF] Dr. Patricia Garcia DO Work Phone: [facility] 01-07-2025 21:15-0400 Diastolic blood pressure 61 mm[Hg] Dr. Patricia Garcia DO Work Phone: [facility] 01-07-2025 21:15-0400 Heart rate 99 /min Dr. Patricia Garcia DO Work Phone: [facility] 01-07-2025 21:15-0400 Respiratory rate 17 /min Dr. Patricia Garcia DO Work Phone: [facility] 01-07-2025 21:15-0400 Systolic blood pressure 93 mm[Hg] Dr. Patricia Garcia DO Work Phone: [facility] 01-07-2025 06:53-0400 Body height 162.[address] Patricia Garcia DO Work Phone: [facility] 01-07-2025 06:53-0400 Body mass index (BMI) [Ratio] 44.4 kg/m2 Dr. Patricia Garcia DO Work Phone: [facility] 01-07-2025 06:53-0400 Body weight 117.[address] Patricia Garcia DO Work Phone: [facility] 01-04-2025 11:43-0400 Body temperature 96.3 [degF] Dr. Patricia Garcia DO Work Phone: [facility] 01-04-2025 11:43-0400 Diastolic blood pressure 84 mm[Hg] Dr. Patricia Garcia DO Work Phone: [facility] 01-04-2025 11:43-0400 Heart rate 67 /min Dr. Patricia Garcia DO Work Phone: [facility] 01-04-2025 11:43-0400 Respiratory rate 18 /min Dr. Patricia Garcia DO Work Phone: [facility] 01-04-2025 11:43-0400 Systolic blood pressure 148 mm[Hg] Dr. Patricia Garcia DO Work Phone: [facility] 12-21-2024 12:40-0400 Body temperature 97.5 [degF] Dr. Patricia Garcia DO Work Phone: [facility] 12-21-2024 12:40-0400 Body weight 118.[address] Patricia Garcia DO Work Phone: [facility] 12-21-2024 12:40-0400 Diastolic blood pressure 77 mm[Hg] Dr. Patricia Garcia DO Work Phone: [facility] 12-21-2024 12:40-0400 Heart rate 78 /min Dr. Patricia Garcia DO Work Phone: [facility] 12-21-2024 12:40-0400 Respiratory rate 18 /min Dr. Patricia Garcia DO Work Phone: [facility] 12-21-2024 12:40-0400 SaO2% (BldA) [Mass fraction] 98 % Dr. Patricia Garcia DO Work Phone: [facility] 12-21-2024 12:40-0400 Systolic blood pressure 129 mm[Hg] Dr. Patricia Garcia DO Work Phone: [facility] 12-12-2024 16:46-0500 Diastolic blood pressure 68 mm[Hg] Dr. Patricia Garcia DO Work Phone: [facility] 12-12-2024 16:46-0500 Heart rate 64 /min Dr. Patricia Garcia DO Work Phone: [facility] 12-12-2024 16:46-0500 SaO2% (BldA) [Mass fraction] 97 % Dr. Patricia Garcia DO Work Phone: [facility] 12-12-2024 16:46-0500 Systolic blood pressure 126 mm[Hg] Dr. aPtricia Garcia DO Work Phone: [facility] 12-12-2024 15:39-0500 Body temperature 97.9 [degF] Dr. Patricia Garcia DO Work Phone: [facility] 12-12-2024 15:39-0500 Respiratory rate 18 /min Dr. Patricia Garcia DO Work Phone: [facility] 12-12-2024 05:43-0500 Body mass index (BMI) [Ratio] 45 kg/m2 Dr. Patricia Garcia DO Work Phone: [facility] 12-12-2024 05:43-0500 Body weight 119.[address] Patricia Garcia DO Work Phone: [facility] 12-07-2024 10:07-0500 Body temperature 95.7 [degF] Dr. Patricia Garcia DO Work Phone: [facility] 12-07-2024 10:07-0500 Diastolic blood pressure 70 mm[Hg] Dr. Patricia Garcia DO Work Phone: [facility] 12-07-2024 10:07-0500 Heart rate 77 /min Dr. Patricia Garcia DO Work Phone: [facility] 12-07-2024 10:07-0500 Respiratory rate 18 /min Dr. Patricia Garcia DO Work Phone: [facility] 12-07-2024 10:07-0500 Systolic blood pressure 130 mm[Hg] Dr. Patricia Garcia DO Work Phone: [facility] 11-09-2024 09:48-0500 Body temperature 95.7 [degF] Dr. Patricia Garcia DO Work Phone: [facility] 11-09-2024 09:48-0500 Diastolic blood pressure 71 mm[Hg] Dr. Patricia Garcia DO Work Phone: [facility] 11-09-2024 09:48-0500 Heart rate 73 /min Dr. Patricia Garcia DO Work Phone: [facility] 11-09-2024 09:48-0500 Respiratory rate 18 /min Dr. Patricia Garcia DO Work Phone: [facility] 11-09-2024 09:48-0500 Systolic blood pressure 129 mm[Hg] Dr. Patricia Garcia DO Work Phone: [facility] 10-05-2024 10:28-0500 Body temperature 95.8 [degF] Dr. Patricia Garcia DO Work Phone: [facility] 10-05-2024 10:28-0500 Diastolic blood pressure 65 mm[Hg] Dr. Patricia Garcia DO Work Phone: [facility] 10-05-2024 10:28-0500 Heart rate 63 /min Dr. Patricia Garcia DO Work Phone: [facility] 10-05-2024 10:28-0500 Respiratory rate 18 /min Dr. Patricia Garcia DO Work Phone: [facility] 10-05-2024 10:28-0500 Systolic blood pressure 127 mm[Hg] Dr. Patricia Garcia DO Work Phone: [facility] 02-03-2024 09:50-0400 Body temperature 97.5 [degF] [facility] 02-03-2024 09:50-0400 Diastolic blood pressure 57 mm[Hg] [facility] 02-03-2024 09:50-0400 Heart rate 73 /min [facility] 02-03-2024 09:50-0400 Respiratory rate 18 /min [facility] 02-03-2024 09:50-0400 Systolic blood pressure 114 mm[Hg] [facility] 01-06-2024 09:40-0400 Body temperature 96.3 [degF] [facility] 01-06-2024 09:40-0400 Diastolic blood pressure 74 mm[Hg] [facility] 01-06-2024 09:40-0400 Heart rate 60 /min [facility] 01-06-2024 09:40-0400 Respiratory rate 18 /min [facility] 01-06-2024 09:40-0400 Systolic blood pressure 110 mm[Hg] [facility] 12-02-2023 09:41-0500 Body temperature 96.4 [degF] [facility] 12-02-2023 09:41-0500 Diastolic blood pressure 66 mm[Hg] [facility] 12-02-2023 09:41-0500 Heart rate 65 /min [facility] 12-02-2023 09:41-0500 Respiratory rate 18 /min [facility] 12-02-2023 09:41-0500 Systolic blood pressure 107 mm[Hg] [facility] 11-04-2023 09:19-0500 Body temperature 95.6 [degF] [facility] 11-04-2023 09:19-0500 Diastolic blood pressure 78 mm[Hg] [facility] 11-04-2023 09:19-0500 Heart rate 70 /min [facility] 11-04-2023 09:19-0500 Respiratory rate 18 /min [facility] 11-04-2023 09:19-0500 Systolic blood pressure 135 mm[Hg] [facility] 10-07-2023 09:22-0500 Body temperature 96.2 [degF] [facility] 10-07-2023 09:22-0500 Diastolic blood pressure 76 mm[Hg] [facility] 10-07-2023 09:22-0500 Heart rate 78 /min [facility] 10-07-2023 09:22-0500 Respiratory rate 18 /min [facility] 10-07-2023 09:22-0500 Systolic blood pressure 115 mm[Hg] [facility] 08-25-2023 11:12-0500 Body temperature 96.6 [degF] [facility] 08-25-2023 11:12-0500 Diastolic blood pressure 95 mm[Hg] [facility] 08-25-2023 11:12-0500 Heart rate 77 /min [facility] 08-25-2023 11:12-0500 Respiratory rate 18 /min [facility] 08-25-2023 11:12-0500 Systolic blood pressure 155 mm[Hg] [facility] 08-05-2023 09:39-0400 Body temperature 95.5 [degF] [facility] 08-05-2023 09:39-0400 Diastolic blood pressure 64 mm[Hg] [facility] 08-05-2023 09:39-0400 Heart rate 75 /min [facility] 08-05-2023 09:39-0400 Respiratory rate 18 /min [facility] 08-05-2023 09:39-0400 Systolic blood pressure 101 mm[Hg] [facility] 07-08-2023 10:26-0400 Body temperature 97 [degF] [facility] 07-08-2023 10:26-0400 Diastolic blood pressure 61 mm[Hg] [facility] 07-08-2023 10:26-0400 Heart rate 60 /min [facility] 07-08-2023 10:26-0400 Respiratory rate 18 /min [facility] 07-08-2023 10:26-0400 Systolic blood pressure 109 mm[Hg] [facility] 06-03-2023 10:05-0400 Body temperature 97.2 [degF] [facility] 06-03-2023 10:05-0400 Diastolic blood pressure 54 mm[Hg] [facility] 06-03-2023 10:05-0400 Heart rate 66 /min [facility] 06-03-2023 10:05-0400 Respiratory rate 18 /min [facility] 06-03-2023 10:05-0400 Systolic blood pressure 96 mm[Hg] [facility] 05-06-2023 10:14-0400 Body temperature 97 [degF] [facility] 05-06-2023 10:14-0400 Diastolic blood pressure 58 mm[Hg] [facility] 05-06-2023 10:14-0400 Heart rate 68 /min [facility] 05-06-2023 10:14-0400 Respiratory rate 18 /min [facility] 05-06-2023 10:14-0400 Systolic blood pressure 99 mm[Hg] [facility] 04-08-2023 09:55-0400 Body temperature 97 [degF] [facility] 04-08-2023 09:55-0400 Diastolic blood pressure 66 mm[Hg] [facility] 04-08-2023 09:55-0400 Heart rate 68 /min [facility] 04-08-2023 09:55-0400 Respiratory rate 18 /min [facility] 04-08-2023 09:55-0400 Systolic blood pressure 124 mm[Hg] [facility] 02-25-2023 10:12-0400 Body temperature 96.7 [degF] Dr. Patricia Garcia Work Phone: [facility] 02-25-2023 10:12-0400 Diastolic blood pressure 76 mm[Hg] Dr. Patricia Garcia Work Phone: [facility] 02-25-2023 10:12-0400 Heart rate 69 /min Dr. Patricia Garcia Work Phone: [facility] 02-25-2023 10:12-0400 Respiratory rate 18 /min Dr. Patricia Garcia Work Phone: [facility] 02-25-2023 10:12-0400 Systolic blood pressure 137 mm[Hg] Dr. Patricia Garcia Work Phone: [facility] 02-04-2023 09:16-0400 Body temperature 97.7 [degF] Dr. Patricia Garcia Work Phone: [facility] 02-04-2023 09:16-0400 Diastolic blood pressure 70 mm[Hg] Dr. Patricia Garcia Work Phone: [facility] 02-04-2023 09:16-0400 Heart rate 74 /min Dr. Patricia Garcia Work Phone: [facility] 02-04-2023 09:16-0400 Respiratory rate 18 /min Dr. Patricia Garcia Work Phone: [facility] 02-04-2023 09:16-0400 Systolic blood pressure 125 mm[Hg] Dr. Patricia Garcia Work Phone: [facility] 01-07-2023 10:03-0400 Body temperature 97 [degF] Dr. Patricia Garcia Work Phone: [facility] 01-07-2023 10:03-0400 Diastolic blood pressure 62 mm[Hg] Dr. Patricia Garcia Work Phone: [facility] 01-07-2023 10:03-0400 Heart rate 72 /min Dr. Patricia Garcia Work Phone: [facility] 01-07-2023 10:03-0400 Respiratory rate 18 /min Dr. Patricia Garcia Work Phone: [facility] 01-07-2023 10:03-0400 Systolic blood pressure 122 mm[Hg] Dr. Patricia Garcia Work Phone: [facility] 12-08-2022 15:35-0500 Body temperature 98.2 [degF] Dr. Patricia Garcia Work Phone: [facility] 12-08-2022 15:35-0500 Diastolic blood pressure 80 mm[Hg] Dr. Patricia Garcia Work Phone: [facility] 12-08-2022 15:35-0500 Heart rate 75 /min Dr. Patricia Garcia Work Phone: [facility] 12-08-2022 15:35-0500 Respiratory rate 16 /min Dr. Patricia Garcai Work Phone: [facility] 12-08-2022 15:35-0500 SaO2% (BldA) [Mass fraction] 96 % Dr. Patricia Garcia Work Phone: [facility] 12-08-2022 15:35-0500 Systolic blood pressure 122 mm[Hg] Dr. Patricia Garcia Work Phone: [facility] 12-08-2022 05:33-0500 Body mass index (BMI) [Ratio] 39.8 kg/m2 Dr. Patricia Garcia Work Phone: [facility] 12-08-2022 05:33-0500 Body weight [address] Patricia Garcia Work Phone: [facility] 12-07-2022 21:00-0500 Body temperature 98.1 [degF] Dr. Patricia Garcia Work Phone: [facility] 12-07-2022 21:00-0500 Diastolic blood pressure 62 mm[Hg] Dr. Patricia Garcia Work Phone: [facility] 12-07-2022 21:00-0500 Heart rate 79 /min Dr. Patricia Garcia Work Phone: [facility] 12-07-2022 21:00-0500 Respiratory rate 18 /min Dr. Patricia Garcia Work Phone: [facility] 12-07-2022 21:00-0500 SaO2% (BldA) [Mass fraction] 97 % Dr. Patricia Garcia Work Phone: [facility] 12-07-2022 21:00-0500 Systolic blood pressure 124 mm[Hg] Dr. Patricia Garcia Work Phone: [facility] 12-07-2022 05:19-0500 Body mass index (BMI) [Ratio] 39.7 kg/m2 Dr. Patricia Garcia Work Phone: [facility] 12-07-2022 05:19-0500 Body weight 111.[address] Patricia Garcia Work Phone: [facility] 12-06-2022 13:54-0500 Body height 167.[address] Patricia Garcia Work Phone: [facility] 12-02-2022 08:40-0500 SaO2% (BldA) [Mass fraction] 96 % Dr. Patricia Garcia Work Phone: [facility] 12-02-2022 08:14-0500 Body temperature 98.1 [degF] Dr. Patricia Garcia Work Phone: [facility] 12-02-2022 08:14-0500 Diastolic blood pressure 68 mm[Hg] Dr. Patricia Garcia Work Phone: [facility] [facility] 12-[facility]22 08:14-0500 Heart rate 85 /min Dr. Patricia Garcia Work Phone: [facility] 12-02-2022 08:14-0500 Respiratory rate 18 /min Dr. Patricia Garcia Work Phone: [facility] 12-02-2022 08:14-0500 Systolic blood pressure 100 mm[Hg] Dr. Patricia Garcia Work Phone: [facility] 12-02-2022 06:00-0500 Body mass index (BMI) [Ratio] 39.8 kg/m2 Dr. Patricia Garcia Work Phone: [facility] 12-02-2022 06:00-0500 Body weight 112.[address] Patricia Garcia Work Phone: [facility] 12-01-2022 10:27-0500 Body height 167.[address] Patricia Garcia Work Phone: [facility] 11-30-2022 13:19-0500 Body temperature 97.9 [degF] Dr. Patricia Garcia Work Phone: [facility] 11-30-2022 13:19-0500 Diastolic blood pressure 72 mm[Hg] Dr. Patricia Garcia Work Phone: [facility] 11-30-2022 13:19-0500 Heart rate 110 /min Dr. Patricia Garcia Work Phone: [facility] 11-30-2022 13:19-0500 Respiratory rate 20 /min Dr. Patricia Garcia Work Phone: [facility] 11-30-2022 13:19-0500 SaO2% (BldA) [Mass fraction] 97 % Dr. Patricia Garcia Work Phone: [facility] 11-30-2022 13:19-0500 Systolic blood pressure 127 mm[Hg] Dr. Patricia Garcia Work Phone: [facility] 11-30-2022 08:02-0500 Body height 167.[address] Patricia Garcia Work Phone: [facility] 11-30-2022 08:02-0500 Body mass index (BMI) [Ratio] 42.1 kg/m2 Dr. Patricia Garcia Work Phone: [facility] 11-30-2022 08:02-0500 Body weight 118.[address] Patricia Garcia Work Phone: [facility] 11-26-2022 14:34-0500 Diastolic blood pressure 64 mm[Hg] Dr. Patricia Garcia Work Phone: [facility] 11-26-2022 14:34-0500 Heart rate 91 /min Dr. Patricia Garcia Work Phone: [facility] 11-26-2022 14:34-0500 Respiratory rate 14 /min Dr. Patricia Garcia Work Phone: [facility] 11-26-2022 14:34-0500 SaO2% (BldA) [Mass fraction] 96 % Dr. Patricia Garcia Work Phone: [facility] 11-26-2022 14:34-0500 Systolic blood pressure 111 mm[Hg] Dr. Patricia Garcia Work Phone: [facility] 11-26-2022 12:05-0500 Body height 167.[address] Patricia Garcia Work Phone: [facility] 11-26-2022 12:05-0500 Body mass index (BMI) [Ratio] 41.1 kg/m2 Dr. Patricia Garcia Work Phone: [facility] 11-26-2022 12:05-0500 Body temperature 97.8 [degF] Dr. Patricia Garcia Work Phone: [facility] 11-26-2022 12:05-0500 Body weight 115.[address] Patricia Garcia Work Phone: [facility] 11-26-2022 10:06-0500 Body temperature 98 [degF] Dr. Patricia Garcia Work Phone: [facility] 11-26-2022 10:06-0500 Diastolic blood pressure 72 mm[Hg] Dr. Patricia Garcia Work Phone: [facility] 11-26-2022 10:06-0500 Heart rate 73 /min Dr. Patricia Garcia Work Phone: [facility] 11-26-2022 10:06-0500 Respiratory rate 18 /min Dr. Patricia Garcia Work Phone: [facility] 11-26-2022 10:06-0500 Systolic blood pressure 111 mm[Hg] Dr. Patricia Garcia Work Phone: [facility] 11-19-2022 09:44-0500 Body temperature 97 [degF] Dr. Patricia Garcia Work Phone: [facility] 11-19-2022 09:44-0500 Diastolic blood pressure 64 mm[Hg] Dr. Patricia Garcia Work Phone: [facility] 11-19-2022 09:44-0500 Heart rate 84 /min Dr. Patricia Garcia Work Phone: [facility] 11-19-2022 09:44-0500 Respiratory rate 18 /min Dr. Patricia Garcia Work Phone: [facility] 11-19-2022 09:44-0500 Systolic blood pressure 119 mm[Hg] Dr. Patricia Garcia Work Phone: [facility] 07-07-2022 09:06-0400 Body temperature 100 [degF] Dr. Patricia Garcia Work Phone: [facility] 07-07-2022 09:06-0400 Diastolic blood pressure 95 mm[Hg] Dr. Patricia Garcia Work Phone: [facility] 07-07-2022 09:06-0400 Heart rate 79 /min Dr. Patricia Garcia Work Phone: [facility] 07-07-2022 09:06-0400 Respiratory rate 16 /min Dr. Patricia Garcia Work Phone: [facility] 07-07-2022 09:06-0400 SaO2% (BldA) [Mass fraction] 98 % Dr. Patricia Garcia Work Phone: [facility] 07-07-2022 09:06-0400 Systolic blood pressure 125 mm[Hg] Dr. Patricia Garcia Work Phone: [facility] 07-07-2022 07:41-0400 Body height 167.[address] Patricia Garcia Work Phone: [facility] 07-07-2022 07:41-0400 Body mass index (BMI) [Ratio] 40.1 kg/m2 Dr. Patricia Garcia Work Phone: [facility] 07-07-2022 07:41-0400 Body weight [address] Patricia Garcia Work Phone: [facility] 05-28-2022 09:09-0400 Body temperature 97 [degF] Dr. Patricia Garcia Work Phone: [facility] Work Phone: 05-28-2022 09:09-0400 Diastolic blood pressure 71 mm[Hg] Dr. Patricia Garcia Work Phone: [facility] Work Phone: 05-28-2022 09:09-0400 Heart rate 74 /min Dr. Patricia Garcia Work Phone: [facility] Work Phone: 05-28-2022 09:09-0400 Systolic blood pressure 125 mm[Hg] Dr. Patricia Garcia Work Phone: [facility] Work Phone: 05-21-2022 09:08-0400 Respiratory rate 20 /min Dr. Patricia Garcia Work Phone: [facility] Work Phone: 05-07-2022 10:16-0400 Body temperature 97.8 [degF] Dr. Patricia Garcia Work Phone: [facility] Work Phone: 05-07-2022 10:16-0400 Diastolic blood pressure 69 mm[Hg] Dr. Patricia Garcia Work Phone: [facility] Work Phone: 05-07-2022 10:16-0400 Heart rate 60 /min Dr. Patricia Garcia Work Phone: [facility] Work Phone: 05-07-2022 10:16-0400 Respiratory rate 18 /min Dr. Patricia Garcia Work Phone: [facility] Work Phone: 05-07-2022 10:16-0400 Systolic blood pressure 114 mm[Hg] Dr. Patricia Garcia Work Phone: [facility] Work Phone: 04-14-2022 13:41-0400 Body height 167.[address] Patricia Garcia Work Phone: [facility] Work Phone: 04-14-2022 13:41-0400 Body mass index (BMI) [Ratio] 41.1 kg/m2 Dr. Patricia Garcia Work Phone: [facility] Work Phone: 04-14-2022 13:41-0400 Body temperature 97.7 [degF] Dr. Patricia Garcia Work Phone: [facility] Work Phone: 04-14-2022 13:41-0400 Body weight 115.[address] Patricia Garcia Work Phone: [facility] Work Phone: 04-14-2022 13:41-0400 Diastolic blood pressure 72 mm[Hg] Dr. Patricia Garcia Work Phone: [facility] Work Phone: 04-14-2022 13:41-0400 Heart rate 65 /min Dr. Patricia Garcia Work Phone: [facility] Work Phone: 04-14-2022 13:41-0400 Respiratory rate 18 /min Dr. Patricia Garcia Work Phone: [facility] Work Phone: 04-14-2022 13:41-0400 SaO2% (BldA) [Mass fraction] 95 % Dr. Patricia Garcia Work Phone: [facility] Work Phone: 04-14-2022 13:41-0400 Systolic blood pressure 114 mm[Hg] Dr. Patricia Garcia Work Phone: [facility] Work Phone: 04-02-2022 09:47-0400 Body temperature 98 [degF] [facility] Work Phone: 04-02-2022 09:47-0400 Diastolic blood pressure 61 mm[Hg] [facility] Work Phone: 04-02-2022 09:47-0400 Heart rate 56 /min [facility] Work Phone: 04-02-2022 09:47-0400 Respiratory rate 18 /min [facility] Work Phone: 04-02-2022 09:47-0400 Systolic blood pressure 102 mm[Hg] [facility] Work Phone: 03-26-2022 09:23-0400 Body temperature 97.3 [degF] [facility] Work Phone: 03-26-2022 09:23-0400 Respiratory rate 18 /min [facility] Work Phone: 03-19-2022 09:29-0400 Diastolic blood pressure 68 mm[Hg] [facility] Work Phone: 03-19-2022 09:29-0400 Heart rate 80 /min [facility] Work Phone: 03-19-2022 09:29-0400 Systolic blood pressure 106 mm[Hg] [facility] Work Phone: 02-26-2022 10:07-0400 Body temperature 97.6 [degF] [facility] Work Phone: 02-26-2022 10:07-0400 Respiratory rate 18 /min [facility] Work Phone: 02-19-2022 10:11-0400 Diastolic blood pressure 70 mm[Hg] [facility] Work Phone: 02-19-2022 10:11-0400 Heart rate 72 /min [facility] Work Phone: 02-19-2022 10:11-0400 Systolic blood pressure 114 mm[Hg] [facility] Work Phone: 02-05-2022 09:03-0400 Body temperature 97.5 [degF] [facility] Work Phone: 02-05-2022 09:03-0400 Diastolic blood pressure 48 mm[Hg] [facility] Work Phone: 02-05-2022 09:03-0400 Heart rate 76 /min [facility] Work Phone: 02-05-2022 09:03-0400 Respiratory rate 22 /min [facility] Work Phone: 02-05-2022 09:03-0400 Systolic blood pressure 107 mm[Hg] [facility] Work Phone: 01-01-2022 09:59-0400 Body temperature 97.8 [degF] [facility] Work Phone: 01-01-2022 09:59-0400 Diastolic blood pressure 78 mm[Hg] [facility] Work Phone: 01-01-2022 09:59-0400 Heart rate 62 /min [facility] Work Phone: 01-01-2022 09:59-0400 Respiratory rate 18 /min [facility] Work Phone: 01-01-2022 09:59-0400 Systolic blood pressure 124 mm[Hg] [facility] Work Phone: Encounters Encounter Date Encounter Type Care Provider Facility Start: 05-10-2025 ambulatory Patricia Garcia Facility:[facility] Start: 05-03-2025 End: 05-09-[address] Patricia Garcia DO Work Phone[facility] Start: 05-03-2025 End: 05-09-[address] [facility] Start: 04-05-2025 End: 04-08-[address] Patricia Garcia DO Work Phone: [facility] Start: 04-05-2025 End: 04-08-[address] [facility] Work Phone: Start: 03-08-2025 End: 03-09-[address] Patricia Garcia DO Work Phone: [facility] Work Phone: Start: 03-08-2025 End: 03-09-[address] [facility] Work Phone: Start: 02-22-[address] Patricia Garcia DO -[facility] Work Phone: Start: 02-18-2025 Non-patient / Non-visit Dr. Wei rader MD -[facility] Start: 02-18-2025 End: 02-18-[address] Patricia Garcia DO Work Phone: [facility] Work Phone: Start: 02-18-2025 End: 02-18-2025 Patient encounter procedure Maria R Beasley PA -Cardiovascular Services Work Phone: Start: 02-18-2025 End: 02-18-2025 ambulatory Maria R Beasley Facility:[facility] Start: 02-08-2025 Encounter for other preprocedural examination Wei Allison [facility] Start: 02-01-2025 End: 02-06-2025 ambulatory Patricia Garcia Facility:[facility] Start: 02-01-2025 End: 02-06-[address] Patricia [facility] Work Phone: Start: 01-29-2025 End: 01-29-2025 Patient encounter procedure Maria R Beasley [facility] Vascular Surgery Work Phone: Start: 01-29-2025 End: 01-29-20[facility] Start: 01-08-2025 Non-patient / Non-visit Maria R Beasley [facility] Start: 01-07-2025 End: 01-08-2025 ambulatory [facility] Facility:[facility] Start: 01-07-2025 End: 01-08-2025 Evaluation and management of inpatient Dr. Wei Allison MD -Progressive Care Unit Work Phone: Start: 01-07-2025 ambulatory [facility] Start: 01-07-2025 Non-patient / Non-visit Dr. Wei rader MD -[facility] Start: 01-04-2025 End: 01-07-[address] Patricia Garcia DO Work Phone: [facility] Work Phone: Start: 01-04-2025 End: 01-07-[address] Patricia Garcia DO [facility] Work Phone: Start: 12-25-2024 End: 12-25-2024 ambulatory [facility] Facility:[facility] Start: 12-25-2024 End: 12-25-2024 Non-patient / Non-visit Dr. Nicola Devi MD -[facility] Work Phone: Start: 12-21-2024 End: 12-21-2024 Patient encounter procedure Maria R ANN [facility] Vascular Surgery Work Phone: Start: 12-21-2024 End: 12-21-2024 ambulatory Maria R Beasley Facility:[facility] Start: 12-12-2024 Non-patient / Non-visit Dr. Anu Benson MD -[facility] Work Phone: Start: 12-12-2024 Non-patient / Non-visit Maria R ANN [facility] Start: 12-11-2024 Non-patient / Non-visit Dr. Anu Benson MD [facility] Work Phone: Start: 12-11-2024 Non-patient / Non-visit Dr. Lenin poon MD -[facility] Start: 12-10-2024 Non-patient / Non-visit Dr. Wei rader MD -[facility] Start: 12-10-2024 Non-patient / Non-visit Dr. Anu Benson MD [facility] Work Phone: Start: 12-10-2024 Non-patient / Non-[facility] Start: 12-09-2024 Non-patient / Non-visit Dr. Lane Rivera MD -[facility] Work Phone: Start: 12-09-2024 Non-patient / Non-visit [facility] Start: 12-08-2024 Non-patient / Non-visit Dr. Lane Rivera MD [facility] Work Phone: Start: 12-08-2024 Non-patient / Non-visit Dr. Lenin poon MD [facility] Start: 12-07-2024 Non-patient / Non-visit Dr. Lenin poon MD [facility] Start: 12-07-2024 ambulatory Lenin Foss Facility:[facility] Start: 12-07-2024 End: 12-12-2024 Evaluation and management of inpatient Dr. Eliane Benson MD -Medical Surgical 3 Work Phone: Start: 12-07-2024 End: 12-07-2024 [facility] Start: 12-07-2024 End: 12-07-[address] Patricia Garcia DO [facility] Work Phone: Start: 11-10-2024 ambulatory Patricia Garcia Facility:[facility] Start: 11-09-2024 End: 11-09-2024 [facility] Start: 11-09-2024 End: 11-09-[address] Patricia Garcia DO [facility] Work Phone: Start: 10-24-2024 End: 10-24-[address] Patricia Garcia DO -[facility] Start: 10-24-2024 End: 10-24-2024 ambulatory Patricia [facility] Facility:[facility] Start: 10-05-2024 End: 10-09-2024 ambulatory Patricia Malys Facility:[facility] Start: 10-05-2024 End: 10-09-[address] Patricia Garcia DO [facility] Work Phone: Start: 09-27-2024 End: 09-27-[address] Patricia Garcia DO -Radiology, [facility] Work Phone: Start: 09-26-2024 End: 09-26-[address] Patricia Garcia DO -[facility] Start: 09-26-2024 End: 09-27-2024 ambulatory Patricia Malys Facility:[facility] Start: 09-25-2024 ambulatory Patricia Malys Facility:[facility] Start: 08-31-2024 End: 09-08-2024 ambulatory Patricia Malys Facility:[facility] Start: 08-03-2024 End: 08-09-2024 ambulatory Patricia Malys Facility:[facility] Start: 07-06-2024 End: 07-09-2024 ambulatory Patricia Malys Facility:[facility] Start: 06-26-2024 ambulatory Patricia Malys Facility:[facility] Start: 06-08-2024 End: 06-09-2024 ambulatory Patricia Malys Facility:[facility] Start: 05-14-2024 End: 05-14-2024 ambulatory Patrciia Malys Facility:[facility] Start: 02-03-2024 End: 02-07-2024 ambulatory [facility] Work Phone: Start: 02-03-2024 End: 02-07-2024 Discharged Recurring [facility] Work Phone: Start: 01-06-2024 End: 01-08-2024 ambulatory [facility] Work Phone: Start: 01-06-2024 End: 01-08-2024 Discharged Recurring [facility] Work Phone: Start: 12-02-2023 End: 12-08-2023 ambulatory [facility] Work Phone: Start: 12-02-2023 End: 12-08-2023 Discharged Recurring [facility] Work Phone: Start: 11-04-2023 End: 11-09-2023 ambulatory [facility] Work Phone: Start: 11-04-2023 End: 11-09-2023 Discharged Recurring [facility] Work Phone: Start: 10-07-2023 End: 10-09-2023 ambulatory [facility] Work Phone: Start: 10-07-2023 End: 10-09-2023 Discharged Recurring [facility] Work Phone: Start: 08-25-2023 End: 09-08-2023 ambulatory [facility] Work Phone: Start: 08-25-2023 End: 09-08-2023 Discharged Recurring [facility] Work Phone: Start: 08-05-2023 End: 08-09-2023 ambulatory [facility] Work Phone: Start: 08-05-2023 End: 08-09-2023 Discharged Recurring [facility] Work Phone: Start: 07-08-2023 End: 07-09-2023 ambulatory [facility] Work Phone: Start: 07-08-2023 End: 07-09-2023 Discharged Recurring [facility] Work Phone: Start: 06-03-2023 End: 06-09-2023 ambulatory [facility] Work Phone: Start: 06-03-2023 End: 06-09-2023 [facility] Start: 06-03-2023 [facility] Start: 06-01-2023 End: 06-01-2023 ambulatory [facility] Work Phone: Start: 06-01-2023 End: 06-01-2023 Discharged Recurring [facility]-Laboratory Work Phone: Start: 05-06-2023 End: 05-09-2023 [facility] Work [facility]: Start: 04-08-2023 End: 04-08-2023 ambulatory [facility] Work Phone: Start: 04-08-2023 End: 04-08-2023 [facility] Work [facility]: Start: 02-25-2023 End: 03-09-[address] Patricia Garcia Work Phone: [facility] Work Phone: Start: 02-25-2023 End: 03-09-[address] [facility] Start: 02-04-2023 End: 02-06-[address] Patricia Garcia Work Phone: [facility] Work Phone: Start: 02-04-2023 End: 02-06-[address] [facility] Start: 01-07-2023 End: 01-07-[address] Patricia Garcia Work Phone: [facility] Work Phone: Start: 01-07-2023 End: 01-07-[address] [facility] Start: 12-20-[address] Patricia arguello Work Phone: [facility] Start: 12-13-[address] Patricia arguello Work Phone: [facility] Start: 12-08-2022 Non-patient / Non-visit Dr. Karen Garcia Work Phone: [facility] Start: 12-08-2022 Non-patient / Non-visit Dr. Karen Garcia Work Phone: [facility] Start: 12-07-2022 Non-patient / Non-visit Dr. Karen Garcia Work Phone: [facility] Start: 12-07-2022 Non-patient / Non-visit Dr. Karen Garcia Work Phone: [facility] Start: 12-06-2022 Non-patient / Non-visit Dr. Karen Garcia Work Phone: [facility] Start: 12-05-2022 Non-patient / Non-visit Dr. Karen Garcia Work Phone: [facility] Start: 12-04-2022 Non-patient / Non-visit Dr. Karen Garcia Work Phone: [facility] Start: 12-03-2022 Non-patient / Non-visit Dr. Karen Garcia Work Phone: [facility] Start: 12-02-2022 Non-patient / Non-visit Dr. Karen Garcia Work Phone: [facility] Start: 12-01-2022 Non-patient / Non-visit Dr. Karen Garcia Work Phone: [facility] Start: 12-01-2022 Non-patient / Non-visit Dr. Karen Garcia Work Phone: [facility] Start: 11-30-2022 Non-patient / Non-visit Dr. Karen Garcia Work Phone: [facility] Start: 11-30-2022 Non-patient / Non-visit Dr. Karen Garcia Work Phone: [facility] Start: 11-30-2022 End: 12-08-2022 Evaluation and management of inpatient Dr. Patricia Garcia Work Phone: [facility]-Medical Surgical 3 Start: 11-29-2022 End: 11-29-[address] Patricia Garcia Work Phone: [facility] Work Phone: Start: 11-29-2022 End: 11-29-[address] Patricia Garcia Work Phone: [facility]-Laboratory Start: 11-26-2022 End: 11-26-2022 Emergency department patient visit Dr. Patricia Garcia Work Phone: [facility]-Emergency Department Start: 11-26-2022 End: 12-07-[address] Patricia Garcia Work Phone: [facility] Work Phone: Start: 11-26-2022 End: 12-07-[address] [facility] Start: 11-26-[address] [facility] Start: 11-19-[address] Patricia Gacria [facility] Start: 11-12-2022 Non-patient / Non-visit Dr. Karen Garcia Work Phone: [facility] Start: 11-12-2022 End: 11-12-[address] Patricia Garcia Work Phone: [facility] Work Phone: Start: 11-12-2022 End: 11-12-[address] [facility] Start: 10-20-2022 End: 10-20-[address] Patricia Garcia Work Phone: [facility] Work Phone: Start: 10-20-2022 End: 10-20-[address] [facility] Start: 10-13-2022 End: 10-13-[address] Patricia Garcia Work Phone: [facility] Work Phone: Start: 10-13-2022 End: 10-13-[address] [facility] Start: 09-08-2022 End: 09-08-[address] Patricia Garcia Work Phone: [facility] Work Phone: Start: 09-08-2022 End: 09-08-[address] [facility] Start: 08-23-2022 End: 08-23-[address] [facility] Start: 07-23-2022 End: 07-23-[address] Patricia Garcia Work Phone: [facility] Start: 07-16-2022 End: 07-16-[address] Patricia Garcia Work Phone: [facility] Work Phone: Start: 07-16-2022 End: 07-16-[address] Patricia Garcia Work Phone: [facility]-Laboratory Start: 07-07-2022 Non-patient / Non-visit Dr. Karen Garcia Work Phone: [facility] Start: 07-07-2022 End: 07-07-2022 Admission to same day surgery center Dr. Patricia Garcia [facility]: [facility] [facility] Start: 07-07-2022 End: 07-07-[address] Patricia Garcia Work Phone: [facility] Work Phone: Start: 06-23-2022 End: 06-23-[address] Patricia Garcia Work Phone: [facility] Work Phone: Start: 06-23-2022 End: 06-23-[address] Patricia Garcia Work Phone: [facility] Start: 05-28-2022 End: 05-28-[address] [facility] Start: 05-07-2022 End: 05-09-[address] [facility] Start: 04-14-2022 End: 04-14-[address] Patricia Garcia Work Phone: [facility] Start: 04-02-2022 End: 04-08-2022 [facility] Start: 03-26-2022 [facility] Start: 03-23-2022 End: 03-23-2022 Patient encounter procedure [facility] Start: 03-10-2022 End: 04-08-2022 Discharged Recurring [facility] Start: 03-10-2022 Registered Recurring [facility] Start: 02-26-2022 End: 03-09-2022 Discharged Recurring [facility] Start: 02-05-2022 End: 02-06-2022 Discharged Recurring [facility] Start: 01-01-2022 End: 01-07-2022 Discharged Recurring [facility] Start: 01-01-2022 Registered Recurring [facility] Procedures Date Procedure Procedure Detail Performing Clinician Start: 01-08-[address] Patricia Garcia DO Work Phone: Start: 01-07-2025 Coagulation time, activated Dr. Patricia Garcia DO Work Phone: Start: 12-12-[address] Patricia Garcia DO Work Phone: Start: 12-08-2024 CT of abdominal aort a with contrast Dr. Patricia Garcia DO Work Phone: Start: 12-08-2024 Serum inorganic phos phate measurement Dr. Patricia Garcia DO Work Phone: Start: 12-07-2024 End: 12-07-[address] acid assay [address] Patricia Garcia DO Work Phone: Start: 12-07-[address] Patricia Garcia DO Work Phone: Start: 12-07-2024 Gram stain microscopy D sandie Garcia DO Work Phone: Start: 12-07-2024 End: 12-07-2024 Microbial culture, routine Dr. Patricia nation DO Work Phone: Start: 12-07-2024 End: 12-07-2024 MRI of lower extremity Dr. Patricia Garcia DO Work Phone: Start: 11-16-[address] Patricia Garcia DO Work Phone: Start: 11-16-2024 Gram stain microscopy D sandie Garcia DO Work Phone: Start: 11-16-2024 End: 11-16-2024 Microbial culture, routine Dr. Patricia nation DO Work Phone: Start: 09-28-[address] Patricia Garcia DO Work Phone: Start: 09-28-2024 Gram stain microscopy D sandie Garcia DO Work Phone: Start: 09-28-2024 Microbial culture, routine Dr. Patricia Garcia DO Work Phone: Start: 09-27-2024 Plain X-ray abdomen Dr. Patricia Garcia DO Work Phone: Start: 09-27-2024 X-ray of lumbosacral spine Dr. Patricia Garcia DO Work Phone: Start: 09-26-[address] Patricia Garcia DO Work Phone: Start: 07-01-2023 Anaerobic microbial culture Start: 07-01-2023 Investigation of transfusion reaction Start: 07-01-2023 Microbial culture, routine Start: 05-13-2023 Anaerobic microbial culture Start: 05-13-2023 Investigation of transfusion reaction Start: 05-13-2023 Microbial culture, routine Start: 05-06-2023 Anaerobic microbial culture Start: 05-06-2023 Investigation of transfusion reaction Start: 05-06-2023 Microbial culture, routine Start: 01-28-2023 Anaerobic microbial culture Start: 01-28-2023 Investigation of transfusion reaction Dr. Patricia Garcia Work Phone: Start: 01-28-2023 Microbial culture, routine Start: 02-27-2023 MRI of brain without contrast Dr. Patricia Garcia Work Phone: Start: 12-06-2022 CT angiography of he ad and neck Dr. Patricia Garcia Work Phone: Start: 12-06-2022 CT of head without contrast Dr. Patricia Garcia Work Phone: Start: 12-01-2022 Plain X-ray of tibia and fibula Dr. Patricia Garcia Work Phone: Start: 11-30-2022 Plain X-ray of shoulder Dr. Patricia Garcia Work Phone: Start: 11-30-2022 CT of abdomen and pe lvis without contrast Dr. Patricia Garcia Work Phone: Start: 11-30-2022 Plain X-ray of shoulder Dr. Patricia Garcia Work Phone: Start: 11-30-2022 CT cervical spine wi thout contrast Dr. Patricia Garcia Work Phone: Start: 11-30-2022 CT of head without contrast Dr. Patricia Garcia Work Phone: Start: 07-07-[address] Patricia arguello Work Phone: Anaerobic microbial culture Dr. Patricia Garcia Work Phone: Anaerobic microbial culture Dr. Patricia Garcia Work Phone: Anaerobic microbial culture Dr. Patricia Garcia Work Phone: Anaerobic microbial culture Dr. Patricia Garcia Work Phone: Bacteria identified in Blood by Culture Dr. Patricia Garcia Work Phone: Investigation of transfusion reaction Dr. Patricia Garcia Work Phone: Investigation of transfusion reaction Dr. Patricia Garcia Work Phone: Investigation of transfusion reaction Dr. Patricia Garcia Work Phone: Microbial culture, routine D sandie Garcia Work Phone: Microbial culture, routine D sandie Garcia Work Phone: Microbial culture, routine D sandie Garcia Work Phone: Microbial culture, routine D sandie Garcia Work Phone: Viral antigen assay Dr. Patricia Garcia Work Phone: Plan of Treatment Date Care Activity Detail Author Start: 01-08-2025 Patient discharge [facility] Start: 01-08-2025 Partial thromboplastin time, activated [facility] Start: 01-08-2025 Prothrombin time [facility] Start: 01-08-2025 Partial thromboplastin time, activated [facility] Start: 01-07-2025 Following clinical pathway protocol [facility] Start: 01-07-2025 Ambulation without limitation [facility] Start: 01-07-2025 Assessment of risk of venous thromboembolism [facility] Start: 01-07-2025 Bedrest [facility] Start: 01-07-2025 Incentive spirometry [facility] Start: 01-07-2025 Insertion of catheter into peripheral vein [facility] Start: 01-07-2025 Measuring intake and output [facility] Start: 01-07-2025 Notification of physician [facility] Start: 01-07-2025 Oxygen therapy [facility] Start: 01-07-2025 Providing care according to standard [facility] Start: 01-07-2025 Provision of activity privileges [facility] Start: 01-07-2025 Pulse taking [facility] Start: 01-07-2025 Taking patient vital signs [facility] Start: 01-07-2025 End: 01-07-2025 [facility] Start: 01-07-2025 Elevation of head of bed [facility] Start: 01-07-2025 Verification routine [facility] Start: 01-07-2025 Admission procedure [facility] Start: 01-07-2025 Analog Ic Design Engineer Anesthesia (Not Applicable) Analog Ic Design Engineer Anesthesia (Not Applicable) [facility] Start: 12-12-2024 Patient discharge [facility] Start: 12-12-2024 [facility] Start: 12-11-2024 Referral to service [facility] Start: 12-11-2024 Consultation [facility] Start: 12-11-2024 [facility] Start: 12-10-2024 [facility] Start: 12-09-2024 Referral to vascular surgeon [facility] Start: 12-07-2024 [facility] Start: 12-07-2024 End: 12-07-2024 Following clinical pathway protocol [facility] Start: 12-07-2024 Assessment of risk of venous thromboembolism [facility] Start: 12-07-2024 Catheterization of vein [facility] Start: 12-07-2024 Consultation [facility] Start: 12-07-2024 Consultation for treatment [facility] Start: 12-07-2024 Contact precautions [facility] Start: 12-07-2024 Elevation of affected extremity [facility] Start: 12-07-2024 Inhalation therapy procedure [facility] Start: 12-07-2024 Insertion of catheter into peripheral vein [facility] Start: 12-07-2024 Measuring intake and output [facility] Start: 12-07-2024 Oxygen therapy [facility] Start: 12-07-2024 Patient referral to [facility] Start: 12-07-2024 Providing care according to standard [facility] Start: 12-07-2024 Provision of activity privileges [facility] Start: 12-07-2024 Referral to occupational therapist [facility] Start: 12-07-2024 Referral to service [facility] Start: 12-07-2024 Wound care [facility] Start: 12-07-2024 [facility] Start: 12-07-2024 Admission procedure [facility] Start: 12-07-2024 Patient referral to [facility] Start: 12-07-2024 [facility] Start: 12-11-2022 Prothrombin time [facility] Start: 12-10-2022 Prothrombin time [facility] Start: 12-09-2022 Prothrombin time [facility] Start: 12-08-2022 Patient discharge [facility] Start: 12-08-2022 [facility] Start: 12-08-2022 Blood chemistry [facility] Start: 12-08-2022 Prothrombin time [facility] Start: 12-06-2022 Cardiac monitoring [facility] Start: 12-06-2022 Oxygen therapy [facility] Start: 12-06-2022 Speech therapy assessment [facility] Start: 12-06-2022 Catheterization of vein [facility] Start: 12-06-2022 Elevation of head of bed [facility] Start: 12-06-2022 Exercises [facility] Start: 12-06-2022 Implementation of planned interventions [facility] Start: 12-06-2022 Notification of physician [facility] Start: 12-06-2022 Tobacco use cessation education [facility] Start: 12-06-2022 [facility] Start: 12-06-2022 Care planning and problem solving actions [facility] Start: 12-06-2022 [facility] Start: 12-03-2022 Prothrombin time [facility] Start: 12-01-2022 Referral to service [facility] Start: 12-01-2022 Patient referral to dietitian [facility] Start: 11-30-2022 [facility] Start: 11-30-2022 End: 11-30-2022 [facility] Start: 11-30-2022 Ambulation without limitation [facility] Start: 11-30-2022 Assessment of risk of venous thromboembolism [facility] Start: 11-30-2022 Consultation for treatment [facility] Start: 11-30-2022 Insertion of catheter into peripheral vein [facility] Start: 11-30-2022 Measuring intake and output [facility] Start: 11-30-2022 Notification of physician [facility] Start: 11-30-2022 Oxygen therapy [facility] Start: 11-30-2022 Providing care according to standard [facility] Start: 11-30-2022 Referral to occupational therapist [facility] Start: 11-30-2022 Referral to sales account coordinator [facility] Start: 11-30-2022 Referral to service [facility] Start: 11-30-2022 Wound care [facility] Start: 11-30-2022 Following clinical pathway protocol [facility] Start: 11-30-2022 End: 11-30-2022 Blood culture [facility] Start: 11-30-2022 [facility] Start: 11-30-2022 Verification routine [facility] Start: 11-30-2022 Admission procedure [facility] Start: 11-30-2022 Brain natriuretic peptide measurement [facility] Start: 07-07-2022 Patient discharge [facility] Start: 06-23-2022 [facility] Work Phone: Anaerobic Culture Anaerobic Culture [facility] Anion gap in Serum or Plasma [facility] Anion gap measurement [facility] Antibody to lupus La protein measurement [facility] Work Phone: Antibody to SS-A measurement [facility] Work Phone: Bacteria identified in Blood by Culture Blood Culture [facility] Bacteria identified in Unspecified specimen by Anaerobe culture [facility] BUN/Creatinine ratio [facility] BUN/Creatinine ratio [facility] Calcium [Mass/volume ] in Serum or Plasma [facility] Calcium [Mass/volume ] in Serum or Plasma [facility] Carbon dioxide, tota l [Moles/volume] in Central venous blood [facility] Carbon dioxide, tota l [Moles/volume] in Serum or Plasma [facility] Centromere protein B Ab [Units/volume] in Serum [facility] Work Phone: Chloride [Moles/volu me] in Serum or Plasma [facility] Chromatin Ab [Units/ volume] in Serum or Plasma [facility] Work Phone: Creatinine [Mass/vol ume] in Serum or Plasma [facility] Creatinine [Moles/vo lume] in Serum or Plasma [facility] DNA double strand Ab [Units/volume] in Serum [facility] Work Phone: Erythrocyte mean cor puscular volume determination [facility] Glucose [Mass/volume ] in Serum or Plasma [facility] Glucose [Mass/volume ] in Serum or Plasma [facility] Hematocrit [Volume F raction] of Blood [facility] Hematocrit [Volume F raction] of Blood [facility] Hemoglobin [Mass/vol ume] in Blood [facility] Hemoglobin [Mass/vol ume] in Blood [facility] INR in Blood by Coag ulation assay [facility] INR in Blood by Coag ulation assay [facility] INR in Blood by Coag ulation assay [facility] INR in Blood by Coag ulation assay [facility] INR in Blood by Coag ulation assay [facility] INR in Blood by Coag ulation assay [facility] Leelee-1 extractable nuc lear Ab [Units/volume] in Serum [facility] Work Phone: Leukocytes [#/volume ] in Blood [facility] Leukocytes [#/volume ] in Blood [facility] Mean corpuscular hem oglobin concentration determination [facility] Mean corpuscular hem oglobin concentration determination [facility] Mean corpuscular hem oglobin determination [facility] Mean corpuscular hem oglobin determination [facility] Measurement of renal function [facility] Measurement of renal function [facility] Microbial culture, routine Wound Culture [facility] Neutrophil count [facility] Neutrophil count [facility] Neutrophil percent differential count [facility] Neutrophil percent differential count [facility] Nuclear Ab [Titer] i n Serum by Immunofluorescence [facility] Work Phone: Patient Education [facility] Work Phone: Patient referral [facility] Work Phone: Platelets [#/volume] in Blood [facility] Platelets [#/volume] in Blood [facility] Potassium [Moles/vol ume] in Serum or Plasma [facility] Potassium measurement [facility] Red blood cell count [facility] Red blood cell count [facility] Red cell distributio n width determination [facility] Red cell distributio n width determination [facility] SCL-70 extractable n uclear Ab [Units/volume] in Serum by Immunoassay [facility] Work Phone: Serum chloride measurement [facility] Sheikh extractable nu clear Ab [Presence] in Serum [facility] Work Phone: Sodium [Moles/volume ] in Serum or Plasma [facility] Sodium measurement [facility] Urea nitrogen [Mass/ volume] in Serum or Plasma [facility] Urea nitrogen [Mass/ volume] in Serum or Plasma [facility] Vancomycin [Mass/vol ume] in Serum or Plasma --trough [facility] Immunizations Immunization Date Immunization Notes Care Provider Fa cility 12-08-2024 influenza, high dose seasonal, preservative-free Dr. Patricia Garcia DO Work Phone: [facility] 11-30-2022 tetanus toxoid, redu félix diphtheria toxoid, and acellular pertussis vaccine, adsorbed Dr. Patricia Garcia Work Phone: [facility] 07-12-2014 Influenza virus vaccine [facility] Payers Date Payer Category Payer Medicare [id number] 2024 Self-pay [id number] 2014 Unknown [id number] 2007 Unknown [facility] [id number] Unknown [id number] Unknown [id number] 2.16.8 40.1.860385.3.579.2.462 Unknown [id number] 2.16.8 40.1.306836.3.579.2.462 Unknown [id number] 2.16.8 40.1.878066.3.579.2.462 Unknown [id number] 2.16.8 40.1.657823.3.579.2.462 Unknown [id number] 2.16.8 40.1.519238.3.579.2.462 Unknown [id number] 2.16.8 40.1.550464.3.579.2.462 Unknown [id number] 2.16.8 40.1.367128.3.579.2.462 Unknown [id number] 2.16.8 40.1.688324.3.579.2.462 Unknown [id number] 2.16.8 40.1.721458.3.579.2.462 Unknown [id number] 2.16.8 40.1.560379.3.579.2.462 Unknown [id number] 2.16.8 40.1.168900.3.579.2.462 Unknown [id number] 2.16.8 40.1.427744.3.579.2.462 Unknown [id number] 2.16.8 40.1.796416.3.579.2.462 Unknown [id number] 2.16.8 40.1.561902.3.579.2.462 Unknown [id number] 2.16.8 40.1.903101.3.579.2.462 Unknown [id number] 2.16.8 40.1.083337.3.579.2.462 Unknown [id number] 2.16.8 40.1.760024.3.579.2.462 Unknown [id number] 2.16.8 40.1.293088.3.579.2.462 Unknown [id number] 2.16.8 40.1.701440.3.579.2.462 Unknown [id number] 2.16.8 40.1.543379.3.579.2.462 Unknown [id number] 2.16.8 40.1.241767.3.579.2.462 Unknown [id number] 2.16.8 40.1.726440.3.579.2.462 Unknown [id number] 2.16.8 40.1.566487.3.579.2.462 Unknown [id number] 2.16.8 40.1.204135.3.579.2.462 Unknown [id number] 2.16.8 40.1.284221.3.579.2.462 Unknown [id number] 2.16.8 40.1.339737.3.579.2.462 Unknown [id number] 2.16.8 40.1.253200.3.579.2.462 Unknown [id number] 2.16.8 40.1.160980.3.579.2.462 Unknown [id number] 2.16.8 40.1.714212.3.579.2.462 Unknown [id number] 2.16.8 40.1.043172.3.579.2.462 Unknown [id number] 2.16.8 40.1.385244.3.579.2.462 Unknown [id number] 2.16.8 40.1.021974.3.579.2.462 Unknown [id number] 2.16.8 40.1.100251.3.579.2.462 Unknown [id number] 2.16.8 40.1.488052.3.579.2.462 Unknown [id number] 2.16.8 40.1.637803.3.579.2.462 Unknown [id number] 2.16.8 40.1.007309.3.579.2.462 Unknown [id number] 2.16.8 40.1.218807.3.579.2.462 Unknown [id number] 2.16.8 40.1.482259.3.579.2.462 Unknown [id number] 2.16.8 40.1.877938.3.579.2.462 Unknown [id number] 2.16.8 40.1.602543.3.579.2.462 Unknown [id number] 2.16.8 40.1.927743.3.579.2.462 Unknown [id number] 2.16.8 40.1.682759.3.579.2.462 Social History Date Type Detail Facility Start: 01-01-2022 End: 12-06-2022 Tobacco smoking status NHIS Unknown if ever smoked [facility] Start: 12-30-2020 None [facility] Start: 01-01-2021 Alone [facility] Start: 09-09-2018 Non-smoker [facility] Start: 1955 Sex Assigned At Male [facility] Start: 12-24-2024 Tobacco smoking stat us NHIS Never smoked tobacco (finding) [facility] Start: 01-08-2025 Sex Male (finding) [facility] Medical Equipment Procedure Code Equipment Code Equipment Origin al Text Equipment Identifier Dates Bare-metal perip heral venous stent ()[id number] [id number] FDA Start: 01-07-2025 Iliofemoral vein stent ()[id number] 0)[id number] FDA Start: 01-07-2025 Bare-metal perip heral venous stent ()[id number] 0)[id number] FDA Start: 01-07-2025 Bare-metal tracheal/bronchial/va scular stent ()[id number] [id number] FDA Start: 01-07-2025 Bare-metal tracheal/bronchial/va scular stent ()[id number] [id number] FDA Start: 01-07-2025 Goals Date Patient Goal Desired Activity /State Functional Status Date Assessment Result Facility 01-08-2025 Functional status Ambulates;Terrell r;Assist with Urinal [facility] Work Phone: 01-07-2025 Functional status Activity Abili ty Standby Assist;With Assist of 1 [facility] Work Phone: 12-12-2024 Functional status Chair;Bathroom Privileg e [facility] Work Phone: 12-08-2022 Functional status Ambulates;Chair [facility] Work Phone: 12-07-2022 Functional status Ambulates [facility] Work Phone: 12-02-2022 Functional status Bedrest [facility] Work Phone: Mental Status Date Assessment Result Facility 01-08-2025 Cognitive function Voice/Name [facility] Work Phone: 01-07-2025 Cognitive function Voice/Name [facility] Work Phone: 12-12-2024 Cognitive function Voice/Name [facility] Work Phone: 12-12-2024 [facility]: 12-08-2022 Cognitive function Voice/Name [facility] Work Phone: 12-07-2022 Cognitive function Voice/Name [facility] Work Phone: 12-02-2022 Cognitive function Appropriate;[facility] Work Phone: 12-01-2022 Cognitive function Arousable To Voice/Nam e [facility] Work Phone: 11-26-2022 Cognitive function Level Of Cons ciousness Awake;Alert;Appropriate [facility] Work Phone: 07-07-2022 Cognitive function Voice/Name [facility] Work Phone: Clinical Notes 11-12-2022 to 05-03-2025 Note Date & Type Note Facility 05-03-2025 Progress note Note Date/Time May 03, 2025 3:39pm [facility] [address] [place] [address] Progress Note - Wound Care 05/03/25 [id number] MR#: [id number] Acct: [id number] Name: ESTEBAN URBINA Rep #:[id number] : [id number] 69 From: Patricia Garcia DO PCP: Dr. Patricia Garcia, DO Status:REG RCR Location: History of Present Illness Date of Service: 05/03/25 Chief Complaint: venous ulcers of left lower extremity History of Wound: Mauricio is a 69 yo gentleman who is here today for evaluation of ulcers to to his bilateral lower legs. [facility]. The left LE ulcer started after he developed increased swelling and blisters of left leg in October and the right leg started sometime at the end of October. He was seen at PCP's office a culture was taken and it was resistant to several antibiotics. He was treated initially with Levaquin but had myalgias and then was treated with doxycycline which he finished 2 days ago. He denies improvementand is having swelling to his left calf and thigh. He has been having swelling to both lower extremities for many years and it has worsened over the last few months. He has not been compliant with compression. He has had increased pain especially in the left leg. He has clear yellow drainage and redness without odor or warmth. He is anti-coagulated on coumadin. He has been washing with Dial soap and witch ifrah. He had been using Collagen at times and using Calcium Alginate and covering with ABD pads during October. He was treated with 3M compression and Aquacel Ag. He was referred to the wound center for ongoing treatment. His ulcers have moderate to heavy drainage. He was in the hospital from 11/30/22 until 12/09/22 for treatment of cellulitis andedema. He underwent treatment with Vancomycin and IV lasix and compression. Discharged on 12/09/22. He returned to his assisted living apartment on Tuesday12/21/22. Wound culture from 12/07/24 was positive for Providencia stuartii, Vancomycin resistant E. Faecalis, Corynebacterium striatum and completed Augmentin orally. His edema is better this week and he is tolerating Circaid compression. 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 He continues to use his lymphedema pumps but continues to have painwith use of these pumps. 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 Subjective Subjective Mauricio is a 69-year-old male with longstanding history of chronic venous ulcerationto the left lower extremity and a right lower extremity venous ulcer that is nearly circumferential. There has been minimal improvement over the last 3 weeks. His edema is worse. He is more compliant with elevation but still is not compliant with compression pump frequency due to pain with use of pumps. Wound culture from 12/07/24 was positive for Providencia stuartii, Vancomycin resistant E. Faecalis, Corynebacterium striatum and completed Augmentin orally. His edema is better this week and he is tolerating Circaid compression. 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 He continues to use his lymphedema pumps but continues to have painwith use of these pumps. 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 Objective Data Objective Data Vital Signs: Vital Signs Temp Pulse Resp BP O2 Del Method 97.8 F 70 18 135/80 H Room Air 05/03/25 11:39 05/03/25 11:39 05/03/25 11:39 05/03/25 11:39 05/03/25 11:39 Oxygen Delivery Method Room Air Physical Exam Const alert, oriented x3 and no apparent distress General Appearance: cooperative and comfortable HEENT normocephalic and head/scalp atraumatic Lymph Lymphatic: lymphedema moderate Resp normal respiratory effort Effort and Inspection: able to speak in complete sentences Cardio regular rate and regular rhythm Extremity Extremity Narrative: His ulcers are painful and the right lower leg remains more swollen than his left but there is good granulation tissue throughout and slough that is nearly completely removed post - debridement, edges of ulcers are beveled without rolled borders General Extremity: edema bilateral lower extremity Details: severe Skin General Skin Exam: venous stasis and dermatitis Wounds: wounds noted Wound Narrative: as in clinical panel, + devitalized tissue, there is increased depth, + granulation tissue bilateral ulcer with good granulation and moderate slough prior to debridement and minimal post debridement Psych mental status grossly normal, thought process normal, cooperative and affect normal Debridement Note Debridement Note Wound debrided: left medial LE ulcer Laterality: Left Type of Debridement: Excisional debridement Anesthesia Used: 5% Lidocaine Gel and Cetacaine Depth: Down to and including healthy tissue and in the subcutaneous layer Percentage of wound debrided: 100 Instrument Used: - (Misonix ultrasonic debridement) Tissue Removed: Yellow slough, devitalized tissue Severity: Fat Layer Exposed Amount of bleeding with debridement: Mild Bleeding Controlled with: Compression and gauze Patient tolerated procedure: Patient tolerated procedure well Post-Debridement Measurements and Additional Note: Post-Debridement Measurements/Treatment WC - Nurse 1 - General Ulcer Assessment Start: 04/19/25 11:30 Freq: Status: Active Protocol: ONDINA Activity Type Activity Date Activity User E-sign Co-sign Detail Recorded Client Recorded Date Recorded By Document 04/19/25 11:30 KW [id number] 04/19/25 11:52 KW Document 05/03/25 11:39 KW [id number] 05/03/25 11:59 KW 04/19/25 05/03/25 11:30 11:39 WC - Today's Visit Information Type of service Follow-up Visit Initial Visit (Physician/APPLICATIONS SPECIALIST ) Arrival Mode Ambulatory, Ambulatory, Walker Walker Patient Identification Verified (Name & Yes Yes ) Vital Signs Temperature (97.8 F-99.1 F) 96.9 F L 97.8 F Temperature Source Temporal Temporal Pulse Rate (60-100) 64 70 Pulse Location Monitor Monitor Respiratory Rate (12-18) 16 18 Respiratory rate source Observation Observation Oxygen Delivery Method Room Air Room Air Blood Pressure (90/60-120/80) 120/82 H 135/80 H Blood Pressure Mean (mm Hg) 94 98 Source Monitor Monitor Position Semi-Fowlers Semi-Fowlers Blood Pressure Location Right Arm Right Arm History Since Last Visit- (Skip if this is Patient's initial visit) Have you changed medications since your No No last visit? Any new allergies or adverse reactions No No Had a fall/change in ADL's that may No No increase risk of falls Signs or symptoms of abuse and/or No No neglect since last visit Have you been in the hospital since your No No last visit? Has dressing in place as prescribed Yes Yes Has compression in place as prescribed Yes Yes Has offloadiing in place as prescribed N/A N/A Experienced any changes in pain level or No No management Left Footwear Regular Shoe Regular Shoe Right Footwear Regular Shoe Regular Shoe Pain Scale: 0-10 Numeric Is Patient Pain Free? Yes Yes DEBBIE - Nurse 1 - General Ulcer Measurement Start: 04/19/25 11:30 Freq: Status: Active Protocol: Activity Type Activity Date Activity User E-sign Co-sign Detail Recorded Client Recorded Date Recorded By Document 04/19/25 11:30 KW [id number] 04/19/25 11:52 KW Document 05/03/25 11:39 [id number] 05/03/25 11:59 04/19/25 05/03/25 11:30 11:39 Wound Center Nurse 1 #24 Left Lateral Leg -Current Size (cm) - Length 0.1 -Current Size (cm) - Width 0.1 -Current Size (cm) - Depth 0 -Total Square Cm 0.01 -Exudate Amt None Present -Texture (Marie-wound Skin Appearance) Assessed -Moisture (Marie-wound Skin Appearance) Assessed -Color (Marie-wound Skin Appearance) Assessed #22 R Medial/Lateral leg -Exudate Amt Medium -Exudate Type Serosanguineous -Wound Margin Distinct, Outline Attached -Granulation Amt Large (67-100%) -Granulation Quality Red -Texture (Marie-wound Skin Appearance) Assessed -Moisture (Marie-wound Skin Appearance) Assessed -Color (Marie-wound Skin Appearance) Assessed -Temperature (Marie-wound Skin No Abnormality Appearance) (Pt Warm) -Tenderness on Palpation (Marie-wound No Skin Appearance) -Ulcer Cleansing Soap and Water -Foul Odor after Cleansing No -Anesthetic Used 5% Lidocaine Gel #18 Left medial LE cluster -Exudate Amt Medium -Exudate Type Serosanguineous -Wound Margin Distinct, Outline Attached -Granulation Amt Large (67-100%) -Granulation Quality Red -Texture (Marie-wound Skin Appearance) Assessed -Moisture (Marie-wound Skin Appearance) Assessed -Color (Marie-wound Skin Appearance) Assessed -Temperature (Marie-wound Skin No Abnormality Appearance) (Pt Warm) -Tenderness on Palpation (Marie-wound No Skin Appearance) -Ulcer Cleansing Soap and Water -Foul Odor after Cleansing No -Anesthetic Used 5% Lidocaine Gel Right Calf (cm) 48.5 44 Right Ankle (cm) 30.5 31 Left Calf (cm) 46 42 Left Ankle (cm) 29.5 30 WC - Nurse 2 - General Ulcer CM Notes Start: 04/19/25 11:30 Freq: Status: Active Protocol: Activity Type Activity Date Activity User E-sign Co-sign Detail Recorded Client Recorded Date Recorded By Document 04/19/25 12:12 [id number] 04/19/25 12:26 GM Document 05/03/25 13:03 DS [id number] 05/03/25 13:19 DS Edit Result 05/03/25 13:03 DS (1) [id number] 05/03/25 13:35 DS (1) #18 Left medial LE cluster - Debridement - Subq, 1st 20sq cm Yes => No 04/19/25 05/03/25 12:12 13:03 Wound Center Nurse 2 #24 Left Lateral Leg -Time 12:13 13:03 -Correct Patient Yes Yes -Correct Side, Site, Position Yes Yes -Correct Procedure Yes Yes -Procedure Performed Yes Yes -Type of Procedure Debridement Debridement -Clinical Debridement Subcutaneous Subcutaneous -Tissue Removed Subcutaneous Subcutaneous -Post Debridement (cm) - Length 1.2 0.8 -Post Debridement (cm) - Width 0.4 0.3 -Post Debridement (cm) - Depth 0.1 0.1 -Total Square (Post) (cm) 0.48 0.24 -Area of Debridement (cm) - Length 1.2 0.8 -Area of Debridement (cm) - Width 0.4 0.3 -Total Square (Area) (cm) 0.48 0.24 -Tunneling No No -Undermining/Tunneling No No -Circular Undermining No No -Wound/Ulcer Outcome Not Healed Not Healed -Ulcer Cleansing Rinsed/ Rinsed/ Irrigated with Irrigated with Saline Saline -Foul Odor after Cleansing No No -Bioengineered Tissue No No -Bleeding Controlled with Pressure Pressure -Treatment Response Procedure Procedure Tolerated Well Tolerated Well -Offloading No -Debridement - Subq, 1st 20sq cm No Yes -Debridement, SubQ, ea addt'l 20sq cm 19 or part thereof #22 R Medial/Lateral leg -Time 12:14 13:03 -Correct Patient Yes Yes -Correct Side, Site, Position Yes Yes -Correct Procedure Yes Yes -Procedure Performed Yes Yes -Type of Procedure Debridement Debridement -Clinical Debridement Subcutaneous Subcutaneous -Tissue Removed Subcutaneous Subcutaneous -Post Debridement (cm) - Length 11.0 11.0 -Post Debridement (cm) - Width 27.5 25.8 -Post Debridement (cm) - Depth 0.1 0.1 -Total Square (Post) (cm) 302.50 283.80 -Area of Debridement (cm) - Length 11.0 11.0 -Area of Debridement (cm) - Width 27.5 25.8 -Total Square (Area) (cm) 302.50 283.80 -Tunneling No No -Undermining/Tunneling No No -Circular Undermining No No -Wound/Ulcer Outcome Not Healed Not Healed -Ulcer Cleansing Rinsed/ Rinsed/ Irrigated with Irrigated with Saline Saline -Foul Odor after Cleansing No No -Bioengineered Tissue No No -Bleeding Controlled with Pressure Pressure -Treatment Response Procedure Procedure Tolerated Well Tolerated Well -Offloading No -Debridement - Subq, 1st 20sq cm No No #18 Left medial LE cluster -Time 12:14 13:03 -Correct Patient Yes Yes -Correct Side, Site, Position Yes Yes -Correct Procedure Yes Yes -Procedure Performed Yes Yes -Type of Procedure Debridement Debridement -Clinical Debridement Subcutaneous Subcutaneous -Tissue Removed Subcutaneous Subcutaneous -Post Debridement (cm) - Length 8.3 8.2 -Post Debridement (cm) - Width 13.0 13.3 -Post Debridement (cm) - Depth 0.1 0.1 -Total Square (Post) (cm) 107.90 109.06 -Area of Debridement (cm) - Length 8.3 8.2 -Area of Debridement (cm) - Width 13.0 13.3 -Total Square (Area) (cm) 107.90 109.06 -Tunneling No No -Undermining/Tunneling No No -Circular Undermining No No -Wound/Ulcer Outcome Not Healed Not Healed -Ulcer Cleansing Rinsed/ Rinsed/ Irrigated with Irrigated with Saline Saline -Foul Odor after Cleansing No No -Bioengineered Tissue No No -Bleeding Controlled with Pressure Pressure -Treatment Response Procedure Tolerated Well -Debridement - Subq, 1st 20sq cm Yes No -Debridement, SubQ, ea addt'l 20sq cm 20 or part thereof Pain Scale: 0-10 Numeric Is Patient Pain Free? Yes Yes WC - Nurse 3 - General Ulcer D/C NN Start: 04/19/25 11:30 Freq: Status: Active Protocol: Activity Type Activity Date Activity User E-sign Co-sign Detail Recorded Client Recorded Date Recorded By Document 04/19/25 12:50 RB [id number] 04/19/25 12:53 RB Document 05/03/25 13:49 [id number] 05/03/25 13:52 RB 04/19/25 05/03/25 12:50 13:49 Wound Care Center Nurse 3 #24 Left Lateral Leg -Ulcer Cleansing Rinsed/ Rinsed/ Irrigated with Irrigated with Saline Saline -Primary Dressing Applied Optilok 6.5x10 -Other Dressing abd pad -Primary Dressing Covered/Secured with Dry Gauze & Dry Gauze & Roll Gauze, Roll Gauze, Secured with Secured with Tape Tape -Optilok 6.5x10 1 #22 R Medial/Lateral leg -Ulcer Cleansing Rinsed/ Irrigated with Saline -Primary Dressing Applied Optilok 6.5x10 -Other Dressing abd -Primary Dressing Covered/Secured with Dry Gauze & Dry Gauze & Roll Gauze, Roll Gauze, Secured with Secured with Tape Tape -Optilok 6.5x10 1 #18 Left medial LE cluster -Other Dressing abd abd -Primary Dressing Covered/Secured with Dry Gauze & Dry Gauze & Roll Gauze, Roll Gauze, Secured with Secured with Tape Tape BLE -Stockings Yes: circaids Yes: circaids bilat Treatment Response Procedure Procedure Tolerated Well Tolerated Well Pain Scale: 0-10 Numeric Is Patient Pain Free? Yes Yes - Visit Discharge Discharge Condition Stable Stable Ambulatory Status Ambulatory, Ambulatory, Walker Walker Transportation Private [facility] Med[facility] Reconcilliation completed & No No provided to patient/care provider Clinical Summary of Care Provided Yes Yes Additional Wound Wound debrided: left lateral leg Laterality: Left Type of Debridement: Excisional debridement Anesthesia Used: 5% Lidocaine Gel and Cetacaine Depth: Down to and including healthy tissue and in the subcutaneous layer Percentage of wound debrided: 100 Instrument Used: - (Misonix ultrasonic debridement) Tissue Removed: Yellow slough, devitalized tissue Severity: Fat Layer Exposed Amount of bleeding with debridement: Mild Bleeding Controlled with: Compression and gauze Patient tolerated procedure: Patient tolerated procedure well Additional Wound Wound debrided: right medial leg Laterality: Right Type of Debridement: Excisional debridement Anesthesia Used: 5% Lidocaine Gel and Cetacaine Depth: Down to and including healthy tissue and in the subcutaneous layer Percentage of wound debrided: 100 Instrument Used: - (Misonix ultrasonic debridement) Tissue Removed: Yellow slough, devitalized tissue Severity: Fat Layer Exposed Amount of bleeding with debridement: Mild Bleeding Controlled with: Compression and gauze Patient tolerated procedure: Patient tolerated procedure well Assessment/Plan Assessment/Plan (1) Lymphedema: CODE(S): I89.0 - Lymphedema, not elsewhere classified (2) Hypertension: CODE(S): I10 - Essential (primary) hypertension QUALIFIERS: Hypertension type: primary hypertension Qualified Code(s): I10 - Essential (primary) hypertension (3) Hyperlipidemia: CODE(S): E78.5 - Hyperlipidemia, unspecified QUALIFIERS: Hyperlipidemia type: mixed hyperlipidemia Qualified Code(s): E78.2 - Mixed hyperlipidemia (4) History of DVT (deep vein thrombosis): CODE(S): Z86.718 - Personal history of other venous thrombosis and embolism (5) Venous insufficiency (chronic) (peripheral): CODE(S): I87.2 - Venous insufficiency (chronic) (peripheral) (6) Venous ulcer of left lower extremity with varicose veins: CODE(S): I83.029 - Varicose veins of left lower extremity with ulcer of unspecified site (7) Edema: CODE(S): R60.9 - Edema, unspecified QUALIFIERS: Edema type: unspecified Qualified Code(s): R60.9 - Edema, unspecified (8) 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 At home wound-care instructions: Will use Circaid compression garments with super absorber and kerlix to right LE and left LE changed every day. Due to his chronic lymphedema and being unable to don traditional compression stockings and the presence of venous ulcers on his LE b/l, it is medically necessary for him to have Circaid compression garments. He is using Circaid compression to both legs. I suspect he is not very compliant with his lymphedemapumps and not getting adequate compression with tubigrips and Circaids. Due to the delayed progress in wound healing of his venous ulcers, we discussed applying for advanced wound healing product for healing his ulcer. Due to the size of his ulcer, Theraskin application approval was requested from his insurance as it is medically necessary for salvaging his limb and healing his ulcer. He underwent 2 applications of Theraskin to this ulcer. Since applicationof Theraskin he had much improvement in epithelialization of his ulcer even though the overall size is not significantly changed there was progress. He is using Circaid compression wraps. Off-loading: The patient was instructed to avoid pressure and friction on the affected areas. Reposition every 2 hours at minimum. Avoid prolonged standing and/or dangling of legs. When seated, feet should be elevated at chest level. Frequent ambulation is encouraged. Encouraged lymphedema pump use. Diet: Patient encouraged to increase protein intake while taking caution to avoid high carbohydrate and/or sugar intake. Labs/cultures/imaging: Wound culture showed Pseudomonas, Escherichia hermannii, Raoultella planticola, Vancomycin Resist. E. faecalis, Alcaligenes faecalis ssp faeca, Staphylococcus cohnii urealyti and anaerobic bacteria on 06/15/24 and he completed on Levofloxacin and Augmentin. Wound culture taken today on right lateral ulcer which showed Raoultella planticola, Staph hemolyticus, staph epidermidis and morganella morganii but no anaeroobic bacteria, Levofloxacin anddoxycyline were prescribed based on culture results. Labs ordered 10/19/2024. Vitamin D was low A1C 5.4% Wound culture from 12/07/24 was positive for Providencia stuartii, Vancomycin resistant E. Faecalis, Corynebacterium striatum and completed Augmentin orally. Follow-up: Return in 1 week for wound care follow up and have dressing changed by home health Mondays. Return sooner or report to the emergency room should symptoms worsen, or new symptoms arise. Note: [employer] speech recognition hair tinter software was used to create portions of this document. Sound-alike and misspelled words, as well as other hair tinter errors may be contained in the documentation. 05/03/25 2279 <Electronically signed by Patricia Garcia DO> Cosigner Signature (if applicable): CC: ~ Signed [facility] Work Phone: [phone] Progress note [facility] [place] [address] Progress Note - Wound Care 05/03/25 1536 MR#: [id number] Acct: [id number] Name: ESTEBAN URBINA Rep #:[id number] : 1955 69 From: Patricia Garcia DO PCP: Dr. Patricia Garcia, DO Status:REG RCR Location: History of Present Illness Date of Service: 05/03/25 Chief Complaint: venous ulcers of left lower extremity History of Wound: Mauricio is a 69 yo gentleman who is here today for evaluation of ulcers to to his bilateral lower legs. [facility]. The left LE ulcer started after he developed increased swelling and blisters of left leg in Octoberand the right leg started sometime at the end of October. He was seen at PCP's office a culture was taken and it was resistant to several antibiotics. He wastreated initially with Levaquin but had myalgias and then was treated with doxycycline which he finished 2 days ago. He denies improvementand is having swelling to his left calf and thigh. He has been having swelling to both lower extremities for many years and it has worsened over the last few chirag hs. He has not been compliant with compression. He has had increased pain especially in the left leg. He has clear yellow drainage and redness without odor or warmth. He is anti- coagulated on coumadin. He has been washing with Dial soap and witch ifrah. He had been using Collagen at times and using Calcium Alginate and covering with ABD pads during October. He was treated with 3M compression and Aquacel Ag. He was referred to the wound center for ongoing treatment. His ulcers have moderate to heavy drainage. He was in the hospital from 11/30/22 until 12/09/22 for treatment of cellulitis andedema. He underwenttreatment with Vancomycin and IV lasix and compression. Discharged on 12/09/22. He returned to his assisted living apartment on Tuesday12/21/22. Wound culture from 12/07/24 was positive for Providencia stuartii, Vancomycin resistant E. Faecalis,Corynebacterium striatum and completed Augmentin orally. His edema is better this week and he is tolerating Circaid compression. 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 He continues to use his lymphedema pumps but continues to have painwith use of these pumps. 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 Subjective Subjective Mauricio is a 69-year-old male with longstanding history of chronic venous ulcerationto the left lower extremity and a right lower extremity venous ulcer that is nearly circumferential. There has been minimal improvement over the last 3 weeks. His edema is worse. He is more compliant with elevation but still is not compliant with compression pump frequency due to pain with use of pumps. Wound culture from 12/07/24 was positive for Providencia stuartii, Vancomycin resistant E. Faecalis,Corynebacterium striatum and completed Augmentin orally. His edema is better this week and he is tolerating Circaid compression. 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 He continues to use his lymphedema pumps but continues to have painwith use of these pumps. 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 Objective Data Objective Data Vital Signs: Vital Signs Temp Pulse Resp BP O2 Del Method 97.8 F 70 18 135/80 H Room Air 05/03/25 11:39 05/03/25 11:39 05/03/25 11:39 05/03/25 11:39 05/03/25 11:39 Oxygen Delivery Method Room Air Physical Exam Const alert, oriented x3 and no apparent distress General Appearance: cooperative and comfortable HEENT normocephalic and head/scalp atraumatic Lymph Lymphatic: lymphedema moderate Resp normal respiratory effort Effort and Inspection: able to speak in complete sentences Cardio regular rate and regular rhythm Extremity Extremity Narrative: His ulcers are painful and the right lower leg remains more swollen than his left but there is goodgranulation tissue throughout and slough that is nearly completely removed post - debridement, edges of ulcers are beveled without rolled borders General Extremity: edema bilateral lower extremity Details: severe Skin General Skin Exam: venous stasis and dermatitis Wounds: wounds noted Wound Narrative: as in clinical panel, + devitalized tissue, there is increased depth, + granulation tissue bilateral ulcer with good granulation and moderate slough prior to debridement and minimal post debridement Psych mental status grossly normal, thought process normal, cooperative and affect normal Debridement Note Debridement Note Wound debrided: left medial LE ulcer Laterality: Left Type of Debridement: Excisional debridement Anesthesia Used: 5% Lidocaine Gel and Cetacaine Depth: Down to and including healthy tissue and in the subcutaneous layer Percentage of wound debrided: 100 Instrument Used: - (Misonix ultrasonic debridement) Tissue Removed: Yellow slough, devitalized tissue Severity: Fat Layer Exposed Amount of bleeding with debridement: Mild Bleeding Controlled with: Compression and gauze Patient tolerated procedure: Patient tolerated procedure well Post-Debridement Measurements and Additional Note: Post-Debridement Measurements/Treatment - Nurse 1 - General Ulcer Assessment Start: 04/19/25 11:30 Freq: Status: Active Protocol: DEBBIE.MARIAJOSE Activity Type Activity Date Activity User E-sign Co-sign Detail Recorded Client Recorded Date Recorded By Document 04/19/25 11:30 KW [id number] 04/19/25 11:52 KW Document 05/03/25 11:39 KW [id number] 05/03/25 11:59 KW 04/19/25 05/03/25 11:30 11:39 - Today's Visit Information Type of service Follow-up Visit Initial Visit (Physician/APPLICATIONS SPECIALIST ) Arrival Mode Ambulatory, Ambulatory, Walker Walker Patient Identification Verified (Name & Yes Yes ) Vital Signs Temperature (97.8 F-99.1 F) 96.9 F L 97.8 F Temperature Source Temporal Temporal Pulse Rate (60-100) 64 70 Pulse Location Monitor Monitor Respiratory Rate (12-18) 16 18 Respiratory rate source Observation Observation Oxygen Delivery Method Room Air Room Air Blood Pressure (90/60-120/80) 120/82 H 135/80 H Blood Pressure Mean (mm Hg) 94 98 Source Monitor Monitor Position Semi-Fowlers Semi-Fowlers Blood Pressure Location Right Arm Right Arm History Since Last Visit- (Skip if this is Patient's initial visit) Have you changed medications since your No No last visit? Any new allergies or adverse reactions No No Had a fall/change in ADL's that may No No increase risk of falls Signs or symptoms of abuse and/or No No neglect since last visit Have you been in the hospital since your No No last visit? Has dressing in place as prescribed Yes Yes Has compression in place as prescribed Yes Yes Has offloadiing in place as prescribed N/A N/A Experienced any changes in pain level or No No management Left Footwear Regular Shoe Regular Shoe Right Footwear Regular Shoe Regular Shoe Pain Scale: 0-10 Numeric Is Patient Pain Free? Yes Yes WC - Nurse 1 - General Ulcer Measurement Start: 04/19/25 11:30 Freq: Status: Active Protocol: Activity Type Activity Date Activity User E-sign Co-sign Detail Recorded Client Recorded Date Recorded By Document 04/19/25 11:30 KW [id number] 04/19/25 11:52 KW Document 05/03/25 11:39 KW [id number] 05/03/25 11:59 KW 04/19/25 05/03/25 11:30 11:39 Wound Center Nurse 1 #24 Left Lateral Leg -Current Size (cm) - Length 0.1 -Current Size (cm) - Width 0.1 -Current Size (cm) - Depth 0 -Total Square Cm 0.01 -Exudate Amt None Present -Texture (Marie-wound Skin Appearance) Assessed -Moisture (Marie-wound Skin Appearance) Assessed -Color (Marie-wound Skin Appearance) Assessed #22 R Medial/Lateral leg -Exudate Amt Medium -Exudate Type Serosanguineous -Wound Margin Distinct, Outline Attached -Granulation Amt Large (67-100%) -Granulation Quality Red -Texture (Marie-wound Skin Appearance) Assessed -Moisture (Marie-wound Skin Appearance) Assessed -Color (Marie-wound Skin Appearance) Assessed -Temperature (Marie-wound Skin No Abnormality Appearance) (Pt Warm) -Tenderness on Palpation (Marie-wound No Skin Appearance) -Ulcer Cleansing Soap and Water -Foul Odor after Cleansing No -Anesthetic Used 5% Lidocaine Gel #18 Left medial LE cluster -Exudate Amt Medium -Exudate Type Serosanguineous -Wound Margin Distinct, Outline Attached -Granulation Amt Large (67-100%) -Granulation Quality Red -Texture (Marie-wound Skin Appearance) Assessed -Moisture (Marie-wound Skin Appearance) Assessed -Color (Marie-wound Skin Appearance) Assessed -Temperature (Marie-wound Skin No Abnormality Appearance) (Pt Warm) -Tenderness on Palpation (Marie-wound No Skin Appearance) -Ulcer Cleansing Soap and Water -Foul Odor after Cleansing No -Anesthetic Used 5% Lidocaine Gel Right Calf (cm) 48.5 44 Right Ankle (cm) 30.5 31 Left Calf (cm) 46 42 Left Ankle (cm) 29.5 30 WC - Nurse 2 - General Ulcer CM Notes Start: 04/19/25 11:30 Freq: Status: Active Protocol: Activity Type Activity Date Activity User E-sign Co-sign Detail Recorded Client Recorded Date Recorded By Document 04/19/25 12:12 GM [id number] 04/19/25 12:26 GM Document 05/03/25 13:03 DS [id number] 05/03/25 13:19 DS Edit Result 05/03/25 13:03 DS (1) [id number] 05/03/25 13:35 DS (1) #18 Left medial LE cluster - Debridement - Subq, 1st 20sq cm Yes => No 04/19/25 05/03/25 12:12 13:03 Wound Center Nurse 2 #24 Left Lateral Leg -Time 12:13 13:03 -Correct Patient Yes Yes -Correct Side, Site, Position Yes Yes -Correct Procedure Yes Yes -Procedure Performed Yes Yes -Type of Procedure Debridement Debridement -Clinical Debridement Subcutaneous Subcutaneous -Tissue Removed Subcutaneous Subcutaneous -Post Debridement (cm) - Length 1.2 0.8 -Post Debridement (cm) - Width 0.4 0.3 -Post Debridement (cm) - Depth 0.1 0.1 -Total Square (Post) (cm) 0.48 0.24 -Area of Debridement (cm) - Length 1.2 0.8 -Area of Debridement (cm) - Width 0.4 0.3 -Total Square (Area) (cm) 0.48 0.24 -Tunneling No No -Undermining/Tunneling No No -Circular Undermining No No -Wound/Ulcer Outcome Not Healed Not Healed -Ulcer Cleansing Rinsed/ Rinsed/ Irrigated with Irrigated with Saline Saline -Foul Odor after Cleansing No No -Bioengineered Tissue No No -Bleeding Controlled with Pressure Pressure -Treatment Response Procedure Procedure Tolerated Well Tolerated Well -Offloading No -Debridement - Subq, 1st 20sq cm No Yes -Debridement, SubQ, ea addt'l 20sq cm 19 or part thereof #22 R Medial/Lateral leg -Time 12:14 13:03 -Correct Patient Yes Yes -Correct Side, Site, Position Yes Yes -Correct Procedure Yes Yes -Procedure Performed Yes Yes -Type of Procedure Debridement Debridement -Clinical Debridement Subcutaneous Subcutaneous -Tissue Removed Subcutaneous Subcutaneous -Post Debridement (cm) - Length 11.0 11.0 -Post Debridement (cm) - Width 27.5 25.8 -Post Debridement (cm) - Depth 0.1 0.1 -Total Square (Post) (cm) 302.50 283.80 -Area of Debridement (cm) - Length 11.0 11.0 -Area of Debridement (cm) - Width 27.5 25.8 -Total Square (Area) (cm) 302.50 283.80 -Tunneling No No -Undermining/Tunneling No No -Circular Undermining No No -Wound/Ulcer Outcome Not Healed Not Healed -Ulcer Cleansing Rinsed/ Rinsed/ Irrigated with Irrigated with Saline Saline -Foul Odor after Cleansing No No -Bioengineered Tissue No No -Bleeding Controlled with Pressure Pressure -Treatment Response Procedure Procedure Tolerated Well Tolerated Well -Offloading No -Debridement - Subq, 1st 20sq cm No No #18 Left medial LE cluster -Time 12:14 13:03 -Correct Patient Yes Yes -Correct Side, Site, Position Yes Yes -Correct Procedure Yes Yes -Procedure Performed Yes Yes -Type of Procedure Debridement Debridement -Clinical Debridement Subcutaneous Subcutaneous -Tissue Removed Subcutaneous Subcutaneous -Post Debridement (cm) - Length 8.3 8.2 -Post Debridement (cm) - Width 13.0 13.3 -Post Debridement (cm) - Depth 0.1 0.1 -Total Square (Post) (cm) 107.90 109.06 -Area of Debridement (cm) - Length 8.3 8.2 -Area of Debridement (cm) - Width 13.0 13.3 -Total Square (Area) (cm) 107.90 109.06 -Tunneling No No -Undermining/Tunneling No No -Circular Undermining No No -Wound/Ulcer Outcome Not Healed Not Healed -Ulcer Cleansing Rinsed/ Rinsed/ Irrigated with Irrigated with Saline Saline -Foul Odor after Cleansing No No -Bioengineered Tissue No No -Bleeding Controlled with Pressure Pressure -Treatment Response Procedure Tolerated Well -Debridement - Subq, 1st 20sq cm Yes No -Debridement, SubQ, ea addt'l 20sq cm 20 or part thereof Pain Scale: 0-10 Numeric Is Patient Pain Free? Yes Yes WC - Nurse 3 - General Ulcer D/C NN Start: 04/19/25 11:30 Freq: Status: Active Protocol: Activity Type Activity Date Activity User E-sign Co-sign Detail Recorded Client Recorded Date Recorded By Document 04/19/25 12:50 RB [id number] 04/19/25 12:53 RB Document 05/03/25 13:49 RB [id number] 05/03/25 13:52 RB 04/19/25 05/03/25 12:50 13:49 Wound Care Center Nurse 3 #24 Left Lateral Leg -Ulcer Cleansing Rinsed/ Rinsed/ Irrigated with Irrigated with Saline Saline -Primary Dressing Applied Optilok 6.5x10 -Other Dressing abd pad -Primary Dressing Covered/Secured with Dry Gauze & Dry Gauze & Roll Gauze, Roll Gauze, Secured with Secured with Tape Tape -Optilok 6.5x10 1 #22 R Medial/Lateral leg -Ulcer Cleansing Rinsed/ Irrigated with Saline -Primary Dressing Applied Optilok 6.5x10 -Other Dressing abd -Primary Dressing Covered/Secured with Dry Gauze & Dry Gauze & Roll Gauze, Roll Gauze, Secured with Secured with Tape Tape -Optilok 6.5x10 1 #18 Left medial LE cluster -Other Dressing abd abd -Primary Dressing Covered/Secured with Dry Gauze & Dry Gauze & Roll Gauze, Roll Gauze, Secured with Secured with Tape Tape BLE -Stockings Yes: circaids Yes: circaids bilat Treatment Response Procedure Procedure Tolerated Well Tolerated Well Pain Scale: 0-10 Numeric Is Patient Pain Free? Yes Yes - Visit Discharge Discharge Condition Stable Stable Ambulatory Status Ambulatory, Ambulatory, Walker Walker [facility]ill[facility] completed & No No provided to patient/care provider Clinical Summary of Care Provided Yes Yes Additional Wound Wound debrided: left lateral leg Laterality: Left Type of Debridement: Excisional debridement Anesthesia Used: 5% Lidocaine Gel and Cetacaine Depth: Down to and including healthy tissue and in the subcutaneous layer Percentage of wound debrided: 100 Instrument Used: - (Misonix ultrasonic debridement) Tissue Removed: Yellow slough, devitalized tissue Severity: Fat Layer Exposed Amount of bleeding with debridement: Mild Bleeding Controlled with: Compression and gauze Patient tolerated procedure: Patient tolerated procedure well Additional Wound Wound debrided: right medial leg Laterality: Right Type of Debridement: Excisional debridement Anesthesia Used: 5% Lidocaine Gel and Cetacaine Depth: Down to and including healthy tissue and in the subcutaneous layer Percentage of wound debrided: 100 Instrument Used: - (Misonix ultrasonic debridement) Tissue Removed: Yellow slough, devitalized tissue Severity: Fat Layer Exposed Amount of bleeding with debridement: Mild Bleeding Controlled with: Compression and gauze Patient tolerated procedure: Patient tolerated procedure well Assessment/Plan Assessment/Plan (1) Lymphedema: CODE(S): I89.0 - Lymphedema, not elsewhere classified (2) Hypertension: CODE(S): I10 - Essential (primary) hypertension QUALIFIERS: Hypertension type: primary hypertension Qualified Code(s): I10 - Essential (primary) hypertension (3) Hyperlipidemia: CODE(S): E78.5 - Hyperlipidemia, unspecified QUALIFIERS: Hyperlipidemia type: mixed hyperlipidemia Qualified Code(s): E78.2 - Mixed hyperlipidemia (4) History of DVT (deep vein thrombosis): CODE(S): Z86.718 - Personal history of other venous thrombosis and embolism (5) Venous insufficiency (chronic) (peripheral): CODE(S): I87.2 - Venous insufficiency (chronic) (peripheral) (6) Venous ulcer of left lower extremity with varicose veins: CODE(S): I83.029 - Varicose veins of left lower extremity with ulcer of unspecified site (7) Edema: CODE(S): R60.9 - Edema, unspecified QUALIFIERS: Edema type: unspecified Qualified Code(s): R60.9 - Edema, unspecified (8) 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 At home wound-care instructions: Will use Circaid compression garments with super absorber and kerlix to right LE and left LE changed every day. Due to his chronic lymphedema and being unable to don traditional compression stockings and the presence of venous ulcers on his LE b/l, it is medically necessary for him to have Circaid compression garments. He is using Circaid compression to both legs. I suspect he is not very compliant with his l ymphedemapumps and not getting adequate compression with tubigrips and Circaids. Due to the delayed progress in wound healing of his venous ulcers, we discussed applying for advanced wound healing product for healing his ulcer. Due to the size of his ulcer, Theraskin application approval was requested from his insurance as it is medically necessary for salvaging his limb and healing his ulcer. He underwent 2 applications of Theraskin to this ulcer. Since applicationof Theraskin he had much improvement in epithelialization of his ulcer even though the overall size is not significantly changed there was progress. He is using Circaid compression wraps. Off-loading: The patient was instructed to avoid pressure and friction on the affected areas. Reposition every 2 hours at minimum. Avoid prolonged standing and/or dangling of legs. When seated, feet should be elevated at chest level. Frequent ambulation is encouraged. Encouraged lymphedema pump use. Diet: Patient encouraged to increase protein intake while taking caution to avoid high carbohydrateand/or sugar intake. Labs/cultures/imaging: Wound culture showed Pseudomonas, Escherichia hermannii, Raoultella planticola, Vancomycin Resist. E. faecalis, Alcaligenes faecalis ssp faeca, Staphylococcus cohnii urealyti and anaerobic bacteria on 06/15/24 and he completed on Levofloxacin and Augmentin. Wound culture taken today on right lateral ulcer which showed Raoultella planticola, Staph hemolyticus, staph epidermidis and morganella morganii but no anaeroobic bacteria, Levofloxacin anddoxycyline were prescribed based on culture results. Labs ordered 10/19/2024. Vitamin D was low A1C 5.4% Wound culture from 12/07/24 was positive for Providencia stuartii, Vancomycin resistant E. Faecalis, Corynebacterium striatum and completed Augmentinorally. Follow-up: Return in 1 week for wound care follow up and have dressing changed by home health Mondays. Return sooner or report to the emergency room should symptoms worsen, or new symptoms arise. Note: [employer] speech recognition hair tinter software was used to create portions of this document. Sound-alike and misspelled words, as well as other hair tinter errors may be contained in the documentation. 05/03/25 1539 Cosigner Signature (if applicable): CC: ~ Signed [facility]07-11-2025 Progress note Author Patricia Garcia [facility] Note Date/Time April 19, 2025 3:06 pm [facility] [address] [place] [address] Progress Note - Wound Care 04/19/25 1322 MR#: [id number] Acct: [id number] Name: ESTEBAN URBINA Rep #:[id number] : 1955 69 From: Patricia Garcia DO PCP: Dr. Patricia Garcia, Status:REG RCR Location: History of Present Illness Date of Service: 04/19/25 Chief Complaint: venous ulcers of left lower extremity History of Wound: Mauricio is a 69 yo gentleman who is here today for evaluation of ulcers to to his bilateral lower legs. He has been treated multiple times in thepast at the wound healing center for similar ulcers. The left LE ulcer started after he developed increased swelling and blisters of left leg in October and the right leg started sometime at the end of October. He was seen at PCP's office a culture was taken and it was resistant to several antibiotics. He was treated initially with Levaquin but had myalgias and then was treated with doxycycline which he finished 2 days ago. He denies improvementand is having swelling to his left calf and thigh. He has been having swelling to both lower extremities for many years and it has worsened over the last few months. He has not been compliant with compression. He has had increased pain especially in the left leg. He has clear yellow drainage and redness without odor or warmth. He is anti-coagulated on coumadin. He has been washing with Dial soap and witch ifrah. He had been using Collagen at times and using Calcium Alginate and covering with ABD pads during October. He was treated with 3M compression and Aquacel Ag. He was referred to the wound center for ongoing treatment. His ulcers have moderate to heavy drainage. He was in the hospital from 11/30/22 until 12/09/22 for treatment of cellulitis andedema. He underwent treatment with Vancomycin and IV lasix and compression. Discharged on 12/09/22. He returned to his assisted living apartment on Tuesday12/21/22. Wound culture from 12/07/24 was positive for Providencia stuartii, Vancomycin resistant E. Faecalis, Corynebacterium striatum and completed Augmentin orally. His edema is better this week and he is tolerating Circaid compression. 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 He continues to use his lymphedema pumps but continues to have painwith use of these pumps. 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 Subjective Subjective Mauricio is a 69-year-old male with longstanding history of chronic venous ulcerationto the left lower extremity and a right lower extremity venous ulcer that is nearly circumferential. There has been minimal improvement over the last 3 weeks. His edema is worse. He is more compliant with elevation but still is not compliant with compression pump frequency due to pain with use of pumps. Wound culture from 12/07/24 was positive for Providencia stuartii, Vancomycin resistant E. Faecalis, Corynebacterium striatum and completed Augmentin orally. His edema is better this week and he is tolerating Circaid compression. 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 He continues to use his lymphedema pumps but continues to have painwith use of these pumps. 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 Objective Data Objective Data Vital Signs: Vital Signs Temp Pulse Resp BP O2 Del Method 96.9 F L 64 16 120/82 H Room Air 04/19/25 11:30 04/19/25 11:30 04/19/25 11:30 04/19/25 11:30 04/19/25 11:30 Oxygen Delivery Method Room Air Physical Exam Const alert, oriented x3 and no apparent distress General Appearance: cooperative and comfortable HEENT normocephalic and head/scalp atraumatic Lymph Lymphatic: lymphedema moderate Resp normal respiratory effort Effort and Inspection: able to speak in complete sentences Cardio regular rate and regular rhythm Extremity Extremity Narrative: His ulcers are painful and the right lower leg remains more swollen than his left but there is good granulation tissue throughout and slough that is nearly completely removed post - debridement, edges of ulcers are beveled without rolled borders General Extremity: edema bilateral lower extremity Details: severe Skin General Skin Exam: venous stasis and dermatitis Wounds: wounds noted Wound Narrative: as in clinical panel, + devitalized tissue, there is increased depth, + granulation tissue bilateral ulcer with good granulation and moderate slough prior to debridement and minimal post debridement Psych mental status grossly normal, thought process normal, cooperative and affect normal Debridement Note Debridement Note Wound debrided: left medial LE ulcer Laterality: Left Type of Debridement: Excisional debridement Anesthesia Used: 5% Lidocaine Gel and Cetacaine Depth: Down to and including healthy tissue and in the subcutaneous layer Percentage of wound debrided: 100 Instrument Used: - (Misonix ultrasonic debridement) Tissue Removed: Yellow slough, devitalized tissue Severity: Fat Layer Exposed Amount of bleeding with debridement: Mild Bleeding Controlled with: Compression and gauze Patient tolerated procedure: Patient tolerated procedure well Post-Debridement Measurements and Additional Note: Post-Debridement Measurements/Treatment - Nurse 1 - General Ulcer Assessment Start: 04/19/25 11:30 Freq: Status: Active Protocol: ONDINA Activity Type Activity Date Activity User E-sign Co-sign Detail Recorded Client Recorded Date Recorded By Document 04/19/25 11:30 ALEX [id number] 04/19/25 11:52 KW 04/19/25 11:30 - Today's Visit Information Type of service Follow-up Visit (Physician/APPLICATIONS SPECIALIST ) Arrival Mode Ambulatory, Walker Patient Identification Verified (Name & Yes ) Vital Signs Temperature (97.8 F-99.1 F) 96.9 F L Temperature Source Temporal Pulse Rate (60-100) 64 Pulse Location Monitor Respiratory Rate (12-18) 16 Respiratory rate source Observation Oxygen Delivery Method Room Air Blood Pressure (90/60-120/80) 120/82 H Blood Pressure Mean (mm Hg) 94 Source Monitor Position Semi-Fowlers Blood Pressure Location Right Arm History Since Last Visit- (Skip if this is Patient's initial visit) Have you changed medications since your No last visit? Any new allergies or adverse reactions No Had a fall/change in ADL's that may No increase risk of falls Signs or symptoms of abuse and/or No neglect since last visit Have you been in the hospital since your No last visit? Has dressing in place as prescribed Yes Has compression in place as prescribed Yes Has offloadiing in place as prescribed N/A Experienced any changes in pain level or No management Left Footwear Regular Shoe Right Footwear Regular Shoe Pain Scale: 0-10 Numeric Is Patient Pain Free? Yes WC - Nurse 1 - General Ulcer Measurement Start: 04/19/25 11:30 Freq: Status: Active Protocol: Activity Type Activity Date Activity User E-sign Co-sign Detail Recorded Client Recorded Date Recorded By Document 04/19/25 11:30 [id number] 04/19/25 11:52 04/19/25 11:30 Wound Center Nurse 1 Right Calf (cm) 48.5 Right Ankle (cm) 30.5 Left Calf (cm) 46 Left Ankle (cm) 29.5 WC - Nurse 2 - General Ulcer CM Notes Start: 04/19/25 11:30 Freq: Status: Active Protocol: Activity Type Activity Date Activity User E-sign Co-sign Detail Recorded Client Recorded Date Recorded By Document 04/19/25 12:12 [id number] 04/19/25 12:26 04/19/25 12:12 Wound Center Nurse 2 #24 Left Lateral Leg -Time 12:13 -Correct Patient Yes -Correct Side, Site, Position Yes -Correct Procedure Yes -Procedure Performed Yes -Type of Procedure Debridement -Clinical Debridement Subcutaneous -Tissue Removed Subcutaneous -Post Debridement (cm) - Length 1.2 -Post Debridement (cm) - Width 0.4 -Post Debridement (cm) - Depth 0.1 -Total Square (Post) (cm) 0.48 -Area of Debridement (cm) - Length 1.2 -Area of Debridement (cm) - Width 0.4 -Total Square (Area) (cm) 0.48 -Tunneling No -Undermining/Tunneling No -Circular Undermining No -Wound/Ulcer Outcome Not Healed -Ulcer Cleansing Rinsed/ Irrigated with Saline -Foul Odor after Cleansing No -Bioengineered Tissue No -Bleeding Controlled with Pressure -Treatment Response Procedure Tolerated Well -Offloading No -Debridement - Subq, 1st 20sq cm No #22 R Medial/Lateral leg -Time 12:14 -Correct Patient Yes -Correct Side, Site, Position Yes -Correct Procedure Yes -Procedure Performed Yes -Type of Procedure Debridement -Clinical Debridement Subcutaneous -Tissue Removed Subcutaneous -Post Debridement (cm) - Length 11.0 -Post Debridement (cm) - Width 27.5 -Post Debridement (cm) - Depth 0.1 -Total Square (Post) (cm) 302.50 -Area of Debridement (cm) - Length 11.0 -Area of Debridement (cm) - Width 27.5 -Total Square (Area) (cm) 302.50 -Tunneling No -Undermining/Tunneling No -Circular Undermining No -Wound/Ulcer Outcome Not Healed -Ulcer Cleansing Rinsed/ Irrigated with Saline -Foul Odor after Cleansing No -Bioengineered Tissue No -Bleeding Controlled with Pressure -Treatment Response Procedure Tolerated Well -Offloading No -Debridement - Subq, 1st 20sq cm No #18 Left medial LE cluster -Time 12:14 -Correct Patient Yes -Correct Side, Site, Position Yes -Correct Procedure Yes -Procedure Performed Yes -Type of Procedure Debridement -Clinical Debridement Subcutaneous -Tissue Removed Subcutaneous -Post Debridement (cm) - Length 8.3 -Post Debridement (cm) - Width 13.0 -Post Debridement (cm) - Depth 0.1 -Total Square (Post) (cm) 107.90 -Area of Debridement (cm) - Length 8.3 -Area of Debridement (cm) - Width 13.0 -Total Square (Area) (cm) 107.90 -Tunneling No -Undermining/Tunneling No -Circular Undermining No -Wound/Ulcer Outcome Not Healed -Ulcer Cleansing Rinsed/ Irrigated with Saline -Foul Odor after Cleansing No -Bioengineered Tissue No -Bleeding Controlled with Pressure -Treatment Response Procedure Tolerated Well -Debridement - Subq, 1st 20sq cm Yes -Debridement, SubQ, ea addt'l 20sq cm 20 or part thereof Pain Scale: 0-10 Numeric Is Patient Pain Free? Yes WC - Nurse 3 - General Ulcer D/C NN Start: 04/19/25 11:30 Freq: Status: Active Protocol: Activity Type Activity Date Activity User E-sign Co-sign Detail Recorded Client Recorded Date Recorded By Document 04/19/25 12:50 RB [id number] 04/19/25 12:53 RB 04/19/25 12:50 Wound Care Center Nurse 3 #24 Left Lateral Leg -Ulcer Cleansing Rinsed/ Irrigated with Saline -Primary Dressing Applied Optilok 6.5x10 -Primary Dressing Covered/Secured with Dry Gauze & Roll Gauze, Secured with Tape -Optilok 6.5x10 1 #22 R Medial/Lateral leg -Ulcer Cleansing Rinsed/ Irrigated with Saline -Primary Dressing Applied Optilok 6.5x10 -Primary Dressing Covered/Secured with Dry Gauze & Roll Gauze, Secured with Tape -Optilok 6.5x10 1 #18 Left medial LE cluster -Other Dressing abd -Primary Dressing Covered/Secured with Dry Gauze & Roll Gauze, Secured with Tape BLE -Stockings Yes: circaids Treatment Response Procedure Tolerated Well Pain Scale: 0-10 Numeric Is Patient Pain Free? Yes WC - Visit Discharge Discharge Condition Stable Ambulatory Status Ambulatory, Walker Transportation Private Auto Medication Reconcilliation completed & No provided to patient/care provider Clinical Summary of Care Provided Yes Additional Wound Wound debrided: left lateral leg Laterality: Left Type of Debridement: Excisional debridement Anesthesia Used: 5% Lidocaine Gel and Cetacaine Depth: Down to and including healthy tissue and in the subcutaneous layer Percentage of wound debrided: 100 Instrument Used: - (Misonix ultrasonic debridement) Tissue Removed: Yellow slough, devitalized tissue Severity: Fat Layer Exposed Amount of bleeding with debridement: Mild Bleeding Controlled with: Compression and gauze Patient tolerated procedure: Patient tolerated procedure well Additional Wound Wound debrided: right medial leg Laterality: Right Type of Debridement: Excisional debridement Anesthesia Used: 5% Lidocaine Gel and Cetacaine Depth: Down to and including healthy tissue and in the subcutaneous layer Percentage of wound debrided: 100 Instrument Used: - (Misonix ultrasonic debridement) Tissue Removed: Yellow slough, devitalized tissue Severity: Fat Layer Exposed Amount of bleeding with debridement: Mild Bleeding Controlled with: Compression and gauze Patient tolerated procedure: Patient tolerated procedure well Assessment/Plan Assessment/Plan (1) Lymphedema: CODE(S): I89.0 - Lymphedema, not elsewhere classified (2) Hypertension: CODE(S): I10 - Essential (primary) hypertension QUALIFIERS: Hypertension type: primary hypertension Qualified Code(s): I10 - Essential (primary) hypertension (3) Hyperlipidemia: CODE(S): E78.5 - Hyperlipidemia, unspecified QUALIFIERS: Hyperlipidemia type: mixed hyperlipidemia Qualified Code(s): E78.2 - Mixed hyperlipidemia (4) History of DVT (deep vein thrombosis): CODE(S): Z86.718 - Personal history of other venous thrombosis and embolism (5) Venous insufficiency (chronic) (peripheral): CODE(S): I87.2 - Venous insufficiency (chronic) (peripheral) (6) Venous ulcer of left lower extremity with varicose veins: CODE(S): I83.029 - Varicose veins of left lower extremity with ulcer of unspecified site (7) Edema: CODE(S): R60.9 - Edema, unspecified QUALIFIERS: Edema type: unspecified Qualified Code(s): R60.9 - Edema, unspecified (8) 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 At home wound-care instructions: Will use Circaid compression garments with super absorber and kerlix to right LE and left LE changed every other day. Due to his chronic lymphedema and being unable to don traditional compression stockings and the presence of venous ulcers on his LE b/l, it is medically necessary for him to have Circaid compression garments. He is using Circaid compression to both legs. I suspect he is not very compliant with his lymphedemapumps and not getting adequate compression with tubigrips and Circaids. Due to the delayed progress in wound healing of his venous ulcers, we discussed applying for advanced wound healing product for healing his ulcer. Due to the size of his ulcer, Theraskin application approval was requested from his insurance as it is medically necessary for salvaging his limb and healing his ulcer. He underwent 2 applications of Theraskin to this ulcer. Since applicationof Theraskin he had much improvement in epithelialization of his ulcer even though the overall size is not significantly changed there was progress. He is using Circaid compression wraps. Off-loading: The patient was instructed to avoid pressure and friction on the affected areas. Reposition every 2 hours at minimum. Avoid prolonged standing and/or dangling of legs. When seated, feet should be elevated at chest level. Frequent ambulation is encouraged. Encouraged lymphedema pump use. Diet: Patient encouraged to increase protein intake while taking caution to avoid high carbohydrate and/or sugar intake. Labs/cultures/imaging: Wound culture showed Pseudomonas, Escherichia hermannii, Raoultella planticola, Vancomycin Resist. E. faecalis, Alcaligenes faecalis ssp faeca, Staphylococcus cohnii urealyti and anaerobic bacteria on 06/15/24 and he completed on Levofloxacin and Augmentin. Wound culture taken today on right lateral ulcer which showed Raoultella planticola, Staph hemolyticus, staph epidermidis and morganella morganii but no anaeroobic bacteria, Levofloxacin anddoxycyline were prescribed based on culture results. Labs ordered 10/19/2024. Vitamin D was low A1C 5.4% Wound culture from 12/07/24 was positive for Providencia stuartii, Vancomycin resistant E. Faecalis, Corynebacterium striatum and completed Augmentin orally. Follow-up: Return in 2 weeks for wound care follow up and have dressing changed by home health Mondays. Return sooner or report to the emergency room should symptoms worsen, or new symptoms arise. Note: [employer] speech recognition hair tinter software was used to create portions of this document. Sound-alike and misspelled words, as well as other hair tinter errors may be contained in the documentation. 04/19/25 1506 <Electronically signed by Patricia Garcia DO> Cosigner Signature (if applicable): CC: ~ Signed [facility] Work Phone: [phone] Progress note [facility] [address] [place] [address] Progress Note - Wound Care 04/19/25 1322 MR#: [id number] Acct: [id number] Name: ESTEBAN URBINA Rep #:[id number] : 1955 69 From: Patricia Garcia DO PCP: Dr. Patricia Garcia DO Status:REG RCR Location: History of Present Illness Date of Service: 04/19/25 Chief Complaint: venous ulcers of left lower extremity History of Wound: Mauricio is a 69 yo gentleman who is here today for evaluation of ulcers to to his bilateral lower legs. He has been treated multiple times in thepast at the wound healing center for similar ulcers. The left LE ulcer started after he developed increased swelling and blisters of left leg in Octoberand the right leg started sometime at the end of October. He was seen at PCP's office a culture was taken and it was resistant to several antibiotics. He wastreated initially with Levaquin but had myalgias and then was treated with doxycycline which he finished 2 days ago. He denies improvementand is having swelling to his left calf and thigh. He has been having swelling to both lower extremities for many years and it has worsened over the last few chirag hs. He has not been compliant with compression. He has had increased pain especially in the left leg. He has clear yellow drainage and redness without odor or warmth. He is anti- coagulated on coumadin. He has been washing with Dial soap and witch ifrah. He had been using Collagen at times and using Calcium Alginate and covering with ABD pads during October. He was treated with 3M compression and Aquacel Ag. He was referred to the wound center for ongoing treatment. His ulcers have moderate to heavy drainage. He was in the hospital from 11/30/22 until 12/09/22 for treatment of cellulitis andedema. He underwenttreatment with Vancomycin and IV lasix and compression. Discharged on 12/09/22. He returned to his assisted living apartment on Tuesday12/21/22. Wound culture from 12/07/24 was positive for Providencia stuartii, Vancomycin resistant E. Faecalis,Corynebacterium striatum and completed Augmentin orally. His edema is better this week and he is tolerating Circaid compression. 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 He continues to use his lymphedema pumps but continues to have painwith use of these pumps. 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 Subjective Subjective Mauricio is a 69-year-old male with longstanding history of chronic venous ulcerationto the left lower extremity and a right lower extremity venous ulcer that is nearly circumferential. There has been minimal improvement over the last 3 weeks. His edema is worse. He is more compliant with elevation but still is not compliant with compression pump frequency due to pain with use of pumps. Wound culture from 12/07/24 was positive for Providencia stuartii, Vancomycin resistant E. Faecalis,Corynebacterium striatum and completed Augmentin orally. His edema is better this week and he is tolerating Circaid compression. 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 He continues to use his lymphedema pumps but continues to have painwith use of these pumps. 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 Objective Data Objective Data Vital Signs: Vital Signs Temp Pulse Resp BP O2 Del Method 96.9 F L 64 16 120/82 H Room Air 04/19/25 11:30 04/19/25 11:30 04/19/25 11:30 04/19/25 11:30 04/19/25 11:30 Oxygen Delivery Method Room Air Physical Exam Const alert, oriented x3 and no apparent distress General Appearance: cooperative and comfortable HEENT normocephalic and head/scalp atraumatic Lymph Lymphatic: lymphedema moderate Resp normal respiratory effort Effort and Inspection: able to speak in complete sentences Cardio regular rate and regular rhythm Extremity Extremity Narrative: His ulcers are painful and the right lower leg remains more swollen than his left but there is goodgranulation tissue throughout and slough that is nearly completely removed post - debridement, edges of ulcers are beveled without rolled borders General Extremity: edema bilateral lower extremity Details: severe Skin General Skin Exam: venous stasis and dermatitis Wounds: wounds noted Wound Narrative: as in clinical panel, + devitalized tissue, there is increased depth, + granulation tissue bilateral ulcer with good granulation and moderate slough prior to debridement and minimal post debridement Psych mental status grossly normal, thought process normal, cooperative and affect normal Debridement Note Debridement Note Wound debrided: left medial LE ulcer Laterality: Left Type of Debridement: Excisional debridement Anesthesia Used: 5% Lidocaine Gel and Cetacaine Depth: Down to and including healthy tissue and in the subcutaneous layer Percentage of wound debrided: 100 Instrument Used: - (Misonix ultrasonic debridement) Tissue Removed: Yellow slough, devitalized tissue Severity: Fat Layer Exposed Amount of bleeding with debridement: Mild Bleeding Controlled with: Compression and gauze Patient tolerated procedure: Patient tolerated procedure well Post-Debridement Measurements and Additional Note: Post-Debridement Measurements/Treatment [id number] - Nurse 1 - General Ulcer Assessment Start: 04/19/25 11:30 Freq: Status: Active Protocol: ONDINA Activity Type Activity Date Activity User E-sign Co-sign Detail Recorded Client Recorded Date Recorded By Document 04/19/25 11:30 KW [id number] 04/19/25 11:52 KW 04/19/25 11:30 WC - Today's Visit Information Type of service Follow-up Visit (Physician/APPLICATIONS SPECIALIST ) Arrival Mode Ambulatory, Walker Patient Identification Verified (Name & Yes ) Vital Signs Temperature (97.8 F-99.1 F) 96.9 F L Temperature Source Temporal Pulse Rate (60-100) 64 Pulse Location Monitor Respiratory Rate (12-18) 16 Respiratory rate source Observation Oxygen Delivery Method Room Air Blood Pressure (90/60-120/80) 120/82 H Blood Pressure Mean (mm Hg) 94 Source Monitor Position Semi-Fowlers Blood Pressure Location Right Arm History Since Last Visit- (Skip if this is Patient's initial visit) Have you changed medications since your No last visit? Any new allergies or adverse reactions No Had a fall/change in ADL's that may No increase risk of falls Signs or symptoms of abuse and/or No neglect since last visit Have you been in the hospital since your No last visit? Has dressing in place as prescribed Yes Has compression in place as prescribed Yes Has offloadiing in place as prescribed N/A Experienced any changes in pain level or No management Left Footwear Regular Shoe Right Footwear Regular Shoe Pain Scale: 0-10 Numeric Is Patient Pain Free? Yes - Nurse 1 - General Ulcer Measurement Start: 04/19/25 11:30 Freq: Status: Active Protocol: Activity Type Activity Date Activity User E-sign Co-sign Detail Recorded Client Recorded Date Recorded By Document 04/19/25 11:30 KW [id number] 04/19/25 11:52 KW 04/19/25 11:30 Wound Center Nurse 1 Right Calf (cm) 48.5 Right Ankle (cm) 30.5 Left Calf (cm) 46 Left Ankle (cm) 29.5 - Nurse 2 - General Ulcer CM Notes Start: 04/19/25 11:30 Freq: Status: Active Protocol: Activity Type Activity Date Activity User E-sign Co-sign Detail Recorded Client Recorded Date Recorded By Document 04/19/25 12:12 [id number] 04/19/25 12:26 04/19/25 12:12 Wound Center Nurse 2 #24 Left Lateral Leg -Time 12:13 -Correct Patient Yes -Correct Side, Site, Position Yes -Correct Procedure Yes -Procedure Performed Yes -Type of Procedure Debridement -Clinical Debridement Subcutaneous -Tissue Removed Subcutaneous -Post Debridement (cm) - Length 1.2 -Post Debridement (cm) - Width 0.4 -Post Debridement (cm) - Depth 0.1 -Total Square (Post) (cm) 0.48 -Area of Debridement (cm) - Length 1.2 -Area of Debridement (cm) - Width 0.4 -Total Square (Area) (cm) 0.48 -Tunneling No -Undermining/Tunneling No -Circular Undermining No -Wound/Ulcer Outcome Not Healed -Ulcer Cleansing Rinsed/ Irrigated with Saline -Foul Odor after Cleansing No -Bioengineered Tissue No -Bleeding Controlled with Pressure -Treatment Response Procedure Tolerated Well -Offloading No -Debridement - Subq, 1st 20sq cm No #22 R Medial/Lateral leg -Time 12:14 -Correct Patient Yes -Correct Side, Site, Position Yes -Correct Procedure Yes -Procedure Performed Yes -Type of Procedure Debridement -Clinical Debridement Subcutaneous -Tissue Removed Subcutaneous -Post Debridement (cm) - Length 11.0 -Post Debridement (cm) - Width 27.5 -Post Debridement (cm) - Depth 0.1 -Total Square (Post) (cm) 302.50 -Area of Debridement (cm) - Length 11.0 -Area of Debridement (cm) - Width 27.5 -Total Square (Area) (cm) 302.50 -Tunneling No -Undermining/Tunneling No -Circular Undermining No -Wound/Ulcer Outcome Not Healed -Ulcer Cleansing Rinsed/ Irrigated with Saline -Foul Odor after Cleansing No -Bioengineered Tissue No -Bleeding Controlled with Pressure -Treatment Response Procedure Tolerated Well -Offloading No -Debridement - Subq, 1st 20sq cm No #18 Left medial LE cluster -Time 12:14 -Correct Patient Yes -Correct Side, Site, Position Yes -Correct Procedure Yes -Procedure Performed Yes -Type of Procedure Debridement -Clinical Debridement Subcutaneous -Tissue Removed Subcutaneous -Post Debridement (cm) - Length 8.3 -Post Debridement (cm) - Width 13.0 -Post Debridement (cm) - Depth 0.1 -Total Square (Post) (cm) 107.90 -Area of Debridement (cm) - Length 8.3 -Area of Debridement (cm) - Width 13.0 -Total Square (Area) (cm) 107.90 -Tunneling No -Undermining/Tunneling No -Circular Undermining No -Wound/Ulcer Outcome Not Healed -Ulcer Cleansing Rinsed/ Irrigated with Saline -Foul Odor after Cleansing No -Bioengineered Tissue No -Bleeding Controlled with Pressure -Treatment Response Procedure Tolerated Well -Debridement - Subq, 1st 20sq cm Yes -Debridement, SubQ, ea addt'l 20sq cm 20 or part thereof Pain Scale: 0-10 Numeric Is Patient Pain Free? Yes - Nurse 3 - General Ulcer D/C NN Start: 04/19/25 11:30 Freq: Status: Active Protocol: Activity Type Activity Date Activity User E-sign Co-sign Detail Recorded Client Recorded Date Recorded By Document 04/19/25 12:50 RB [id number] 04/19/25 12:53 RB 04/19/25 12:50 Wound Care Center Nurse 3 #24 Left Lateral Leg -Ulcer Cleansing Rinsed/ Irrigated with Saline -Primary Dressing Applied Optilok 6.5x10 -Primary Dressing Covered/Secured with Dry Gauze & Roll Gauze, Secured with Tape -Optilok 6.5x10 1 #22 R Medial/Lateral leg -Ulcer Cleansing Rinsed/ Irrigated with Saline -Primary Dressing Applied Optilok 6.5x10 -Primary Dressing Covered/Secured with Dry Gauze & Roll Gauze, Secured with Tape -Optilok 6.5x10 1 #18 Left medial LE cluster -Other Dressing abd -Primary Dressing Covered/Secured with Dry Gauze & Roll Gauze, Secured with Tape BLE -Stockings Yes: circaids Treatment Response Procedure Tolerated Well Pain Scale: 0-10 Numeric Is Patient Pain Free? Yes - Visit Discharge Discharge Condition Stable Ambulatory Status Ambulatory, Walker Transportation Private Auto Medication Reconcilliation completed & No provided to patient/care provider Clinical Summary of Care Provided Yes Additional Wound Wound debrided: left lateral leg Laterality: Left Type of Debridement: Excisional debridement Anesthesia Used: 5% Lidocaine Gel and Cetacaine Depth: Down to and including healthy tissue and in the subcutaneous layer Percentage of wound debrided: 100 Instrument Used: - (Misonix ultrasonic debridement) Tissue Removed: Yellow slough, devitalized tissue Severity: Fat Layer Exposed Amount of bleeding with debridement: Mild Bleeding Controlled with: Compression and gauze Patient tolerated procedure: Patient tolerated procedure well Additional Wound Wound debrided: right medial leg Laterality: Right Type of Debridement: Excisional debridement Anesthesia Used: 5% Lidocaine Gel and Cetacaine Depth: Down to and including healthy tissue and in the subcutaneous layer Percentage of wound debrided: 100 Instrument Used: - (Misonix ultrasonic debridement) Tissue Removed: Yellow slough, devitalized tissue Severity: Fat Layer Exposed Amount of bleeding with debridement: Mild Bleeding Controlled with: Compression and gauze Patient tolerated procedure: Patient tolerated procedure well Assessment/Plan Assessment/Plan (1) Lymphedema: CODE(S): I89.0 - Lymphedema, not elsewhere classified (2) Hypertension: CODE(S): I10 - Essential (primary) hypertension QUALIFIERS: Hypertension type: primary hypertension Qualified Code(s): I10 - Essential (primary) hypertension (3) Hyperlipidemia: CODE(S): E78.5 - Hyperlipidemia, unspecified QUALIFIERS: Hyperlipidemia type: mixed hyperlipidemia Qualified Code(s): E78.2 - Mixed hyperlipidemia (4) History of DVT (deep vein thrombosis): CODE(S): Z86.718 - Personal history of other venous thrombosis and embolism (5) Venous insufficiency (chronic) (peripheral): CODE(S): I87.2 - Venous insufficiency (chronic) (peripheral) (6) Venous ulcer of left lower extremity with varicose veins: CODE(S): I83.029 - Varicose veins of left lower extremity with ulcer of unspecified site (7) Edema: CODE(S): R60.9 - Edema, unspecified QUALIFIERS: Edema type: unspecified Qualified Code(s): R60.9 - Edema, unspecified (8) 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 At home wound-care instructions: Will use Circaid compression garments with super absorber and kerlix to right LE and left LE changed every other day. Due to his chronic lymphedema and being unable to don traditional compression stockings and the presence of venous ulcers on his LE b/l, it is medically necessary for him to have Circaid compression garments. He is using Circaid compression to both legs. I suspect he is not very compliant with his l ymphedemapumps and not getting adequate compression with tubigrips and Circaids. Due to the delayed progress in wound healing of his venous ulcers, we discussed applying for advanced wound healing product for healing his ulcer. Due to the size of his ulcer, Theraskin application approval was requested from his insurance as it is medically necessary for salvaging his limb and healing his ulcer. He underwent 2 applications of Theraskin to this ulcer. Since applicationof Theraskin he had much improvement in epithelialization of his ulcer even though the overall size is not significantly changed there was progress. He is using Circaid compression wraps. Off-loading: The patient was instructed to avoid pressure and friction on the affected areas. Reposition every 2 hours at minimum. Avoid prolonged standing and/or dangling of legs. When seated, feet should be elevated at chest level. Frequent ambulation is encouraged. Encouraged lymphedema pump use. Diet: Patient encouraged to increase protein intake while taking caution to avoid high carbohydrateand/or sugar intake. Labs/cultures/imaging: Wound culture showed Pseudomonas, Escherichia hermannii, Raoultella planticola, Vancomycin Resist. E. faecalis, Alcaligenes faecalis ssp faeca, Staphylococcus cohnii urealyti and anaerobic bacteria on 06/15/24 and he completed on Levofloxacin and Augmentin. Wound culture taken today on right lateral ulcer which showed Raoultella planticola, Staph hemolyticus, staph epidermidis and morganella morganii but no anaeroobic bacteria, Levofloxacin anddoxycyline were prescribed based on culture results. Labs ordered 10/19/2024. Vitamin D was low A1C 5.4% Wound culture from 12/07/24 was positive for Providencia stuartii, Vancomycin resistant E. Faecalis, Corynebacterium striatum and completed Augmentinorally. Follow-up: Return in 2 weeks for wound care follow up and have dressing changed by home health Mondays. Return sooner or report to the emergency room should symptoms worsen, or new symptoms arise. Note: [employer] speech recognition hair tinter software was used to create portions of this document. Sound-alike and misspelled words, as well as other hair tinter errors may be contained in the documentation. 04/19/25 1506 Cosigner Signature (if applicable): CC: ~ Signed [facility]06-27-2025 Progress note Author Patricia Garcia [facility] Note Date/Time April 05, 2025 2:30 pm [facility] [address] [place] [id number] Progress Note - Wound Care 04/05/25 1429 MR#: [id number] Acct: [id number] Name: ESTEBAN URBINA Rep #:[id number] : 1955 69 From: Patricia Garcia DO PCP: Dr. Patricia Garcia, DO Status:REG R Location: History of Present Illness Date of Service: 04/05/25 Chief Complaint: venous ulcers of left lower extremity History of Wound: Mauricio is a 69 yo gentleman who is here today for evaluation of ulcers to to his bilateral lower legs. [facility]. The left LE ulcer started after he developed increased swelling and blisters of left leg in October and the right leg started sometime at the end of October. He was seen at PCP's office a culture was taken and it was resistant to several antibiotics. He was treated initially with Levaquin but had myalgias and then was treated with doxycycline which he finished 2 days ago. He denies improvementand is having swelling to his left calf and thigh. He has been having swelling to both lower extremities for many years and it has worsened over the last few months. He has not been compliant with compression. He has had increased pain especially in the left leg. He has clear yellow drainage and redness without odor or warmth. He is anti-coagulated on coumadin. He has been washing with Dial soap and witch ifrah. He had been using Collagen at times and using Calcium Alginate and covering with ABD pads during October. He was treated with 3M compression and Aquacel Ag. He was referred to the wound center for ongoing treatment. His ulcers have moderate to heavy drainage. He was in the hospital from 11/30/22 until 12/09/22 for treatment of cellulitis andedema. He underwent treatment with Vancomycin and IV lasix and compression. Discharged on 12/09/22. He returned to his assisted living apartment on Tuesday12/21/22. Wound culture from 12/07/24 was positive for Providencia stuartii, Vancomycin resistant E. Faecalis, Corynebacterium striatum and completed Augmentin orally. His edema is better this week and he is tolerating Circaid compression. 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 He continues to use his lymphedema pumps but continues to have painwith use of these pumps. 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 Progress of Wound: Mauricio is here today in follow up for chronic venous ulceration to the left lower extremity right lower extremity venous ulcer that is nearly circumferential. There continues to be mild improvement in both ulcers over the last week. He is more compliant with elevation but still is not compliant with compression pump frequency. he denies increased drainage, pain, or odor. Subjective Subjective Mauricio is a 69-year-old male with longstanding history of chronic venous ulcerationto the left lower extremity and now a right lower extremity venous ulcer that isnearly circumferential. There continues to be mild improvement in both ulcers over the last week. He is more compliant with elevation but still is not compliant with compression pump frequency. Wound culture from 12/07/24 was positive for Providencia stuartii, Vancomycin resistant E. Faecalis, Corynebacterium striatum and completed Augmentin orally. His edema is better this week and he is tolerating Circaid compression. 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 He continues to use his lymphedema pumps but continues to have painwith use of these pumps. 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 Objective Data Objective Data Vital Signs: Vital Signs Temp Pulse Resp BP O2 Del Method 96.9 F L 61 18 171/100 H Room Air 04/05/25 11:53 04/05/25 11:53 04/05/25 11:53 04/05/25 11:53 04/05/25 11:53 Oxygen Delivery Method Room Air Physical Exam Const alert, oriented x3 and no apparent distress General Appearance: cooperative and comfortable HEENT normocephalic and head/scalp atraumatic Lymph Lymphatic: lymphedema moderate Resp normal respiratory effort Effort and Inspection: able to speak in complete sentences Cardio regular rate and regular rhythm Extremity Extremity Narrative: His ulcers are painful and the right lower leg remains more swollen than his left but there is good granulation tissue throughout and slough that is nearly completely removed post - debridement, edges of ulcers are beveled without rolled borders General Extremity: edema bilateral lower extremity Details: severe Skin General Skin Exam: venous stasis and dermatitis Wounds: wounds noted Wound Narrative: as in clinical panel, + devitalized tissue, there is increased depth, + granulation tissue bilateral ulcer with good granulation and moderate to heavy slough prior to debridement and minimal post debridement Psych mental status grossly normal, thought process normal, cooperative and affect normal Debridement Note Debridement Note Wound debrided: left medial LE ulcer Laterality: Left Type of Debridement: Excisional debridement Anesthesia Used: 5% Lidocaine Gel and Cetacaine Depth: Down to and including healthy tissue and in the subcutaneous layer Percentage of wound debrided: 100 Instrument Used: - (Misonix ultrasonic debridement) Tissue Removed: Yellow slough, devitalized tissue Severity: Fat Layer Exposed Amount of bleeding with debridement: Mild Bleeding Controlled with: Compression and gauze Patient tolerated procedure: Patient tolerated procedure well Post-Debridement Measurements and Additional Note: Post-Debridement Measurements/Treatment DEBBIE - Nurse 1 - General Ulcer Assessment Start: 03/15/25 11:57 Freq: Status: Active Protocol: WC.LOWEXT Activity Type Activity Date Activity User E-sign Co-sign Detail Recorded Client Recorded Date Recorded By Document 03/15/25 11:57 RB [id number] 03/15/25 12:01 RB Document 03/22/25 11:44 RB [id number] 03/22/25 11:51 RB Document 03/29/25 11:21 KW [id number] 03/29/25 11:34 KW Document 04/05/25 11:53 KW [id number] 04/05/25 12:14 KW 03/15/25 03/22/25 03/29/25 11:57 11:44 11:21 - Today's Visit Information Type of service Follow-up Visit Follow-up Visit Follow-up Visit (Physician/APPLICATIONS SPECIALIST (Physician/APPLICATIONS SPECIALIST (Physician/APPLICATIONS SPECIALIST ) ) ) Arrival Mode Ambulatory, Ambulatory Ambulatory, Walker Walker Transfer Assistance Manual None Patient Identification Verified (Name & Yes Yes Yes ) Patient Requires Transmission-Based No No Precautions Vital Signs Temperature (97.8 F-99.1 F) 96.2 F L 97.3 F L Temperature Source Temporal Temporal Pulse Rate (60-100) 59 L 61 Pulse Location Monitor Monitor Respiratory Rate (12-18) 18 18 Respiratory rate source Observation Observation Oxygen Delivery Method Room Air Blood Pressure (90/60-120/80) 154/82 H 145/79 H Blood Pressure Mean (mm Hg) 106 101 Source Monitor Monitor Position Sitting Semi-Fowlers Blood Pressure Location Left Arm Right Arm History Since Last Visit- (Skip if this is Patient's initial visit) Have you changed medications since your No No last visit? Any new allergies or adverse reactions No No Had a fall/change in ADL's that may No No increase risk of falls Signs or symptoms of abuse and/or No No neglect since last visit Have you been in the hospital since your No No last visit? Has dressing in place as prescribed Yes Yes Has compression in place as prescribed Yes Yes Has offloadiing in place as prescribed N/A N/A Experienced any changes in pain level or No No management Left Footwear Regular Shoe Regular Shoe Right Footwear Regular Shoe Regular Shoe Pain Scale: 0-10 Numeric Is Patient Pain Free? No Yes Yes ble -Description Aching -Intensity 6 -Duration (hours) Acute -Pain Behavior Withdrawal from Touch -Pain Aggravating Factors Exercise/ Activity, Debridement -Alleviating Factors/Interventions Medication -Effectiveness of Alleviating Factor/ Moderately Intervention effective 04/05/25 11:53 WC - Today's Visit Information Type of service Follow-up Visit (Physician/APPLICATIONS SPECIALIST ) Arrival Mode Ambulatory, Wheelchair Transfer Assistance Patient Identification Verified (Name & Yes ) Patient Requires Transmission-Based Precautions Vital Signs Temperature (97.8 F-99.1 F) 96.9 F L Temperature Source Temporal Pulse Rate (60-100) 61 Pulse Location Monitor Respiratory Rate (12-18) 18 Respiratory rate source Observation Oxygen Delivery Method Room Air Blood Pressure (90/60-120/80) 171/100 H Blood Pressure Mean (mm Hg) 123 Source Monitor Position Semi-Fowlers Blood Pressure Location Right Arm History Since Last Visit- (Skip if this is Patient's initial visit) Have you changed medications since your No last visit? Any new allergies or adverse reactions No Had a fall/change in ADL's that may No increase risk of falls Signs or symptoms of abuse and/or No neglect since last visit Have you been in the hospital since your No last visit? Has dressing in place as prescribed Yes Has compression in place as prescribed Yes Has offloadiing in place as prescribed N/A Experienced any changes in pain level or No management Left Footwear Regular Shoe Right Footwear Regular Shoe Pain Scale: 0-10 Numeric Is Patient Pain Free? Yes ble -Description -Intensity -Duration (hours) -Pain Behavior -Pain Aggravating Factors -Alleviating Factors/Interventions -Effectiveness of Alleviating Factor/ Intervention WC - Nurse 1 - General Ulcer Measurement Start: 03/15/25 11:57 Freq: Status: Active Protocol: Activity Type Activity Date Activity User E-sign Co-sign Detail Recorded Client Recorded Date Recorded By Document 03/15/25 11:57 RB [id number] 03/15/25 12:01 RB Document 03/22/25 11:44 RB [id number] 03/22/25 11:51 RB Document 03/29/25 11:21 KW [id number] 03/29/25 11:34 KW Document 04/05/25 11:53 KW [id number] 04/05/25 12:14 KW 03/15/25 03/22/25 03/29/25 11:57 11:44 11:21 Wound Center Nurse 1 #24 Left Lateral Leg -Combined with other wound No No -Current Size (cm) - Length 2 1.5 -Current Size (cm) - Width 0.7 0.7 -Current Size (cm) - Depth 0.1 0.1 -Total Square Cm 1.4 1.05 -Photo Taken Yes -Tunneling No No -Undermining/Tunneling No No -Circular Undermining No No -Exudate Amt Large Large Medium -Exudate Type Serosanguineous Serosanguineous Serosanguineous -Wound Margin Distinct, Distinct, Distinct, Outline Outline Outline Attached Attached Attached -Granulation Amt Large (67-100%) Medium (34-66%) Large (67-100%) -Granulation Quality Lingle Lingle Red -Slough/Fibrin Yes Yes -Necrosis Amt Small (1-33%) Medium (34-66%) -Necrotic Tissue Type Adherent Slough Adherent Slough -Structure Exposed N/A N/A -Texture (Marie-wound Skin Appearance) Assessed, Assessed, Assessed Scarring Localized Edema -Moisture (Marie-wound Skin Appearance) Assessed Assessed Assessed -Color (Marie-wound Skin Appearance) Assessed Assessed Assessed, Hemosiderin Staining -Temperature (Marie-wound Skin No Abnormality No Abnormality No Abnormality Appearance) (Pt Warm) (Pt Warm) (Pt Warm) -Tenderness on Palpation (Marie-wound No No No Skin Appearance) -Ulcer Cleansing Wound Cleanser Wound Cleanser Soap and Water -Foul Odor after Cleansing No No No -Anesthetic Used 5% Lidocaine 5% Lidocaine 5% Lidocaine Gel Gel Gel #22 R Medial/Lateral leg -Combined with other wound No No -Current Size (cm) - Length 11 30.5 -Current Size (cm) - Width 29 8.5 -Current Size (cm) - Depth 0.2 0.2 -Total Square Cm 319 259.25 -Photo Taken Yes -Tunneling No No -Undermining/Tunneling No No -Circular Undermining No No -Exudate Amt Large Medium Medium -Exudate Type Serosanguineous Serosanguineous Serosanguineous -Wound Margin Distinct, Distinct, Distinct, Outline Outline Outline Attached Attached Attached -Granulation Amt Medium (34-66%) Medium (34-66%) Large (67-100%) -Granulation Quality Lingle Lingle Red -Slough/Fibrin Yes Yes -Necrosis Amt Small (1-33%) Medium (34-66%) -Necrotic Tissue Type Adherent Slough Adherent Slough -Structure Exposed N/A N/A -Texture (Marie-wound Skin Appearance) Assessed, Assessed, Assessed Scarring Localized Edema -Moisture (Marie-wound Skin Appearance) Assessed Assessed Assessed -Color (Marie-wound Skin Appearance) Assessed Assessed Assessed, Hemosiderin Staining -Temperature (Marie-wound Skin No Abnormality No Abnormality No Abnormality Appearance) (Pt Warm) (Pt Warm) (Pt Warm) -Tenderness on Palpation (Marie-wound No No No Skin Appearance) -Ulcer Cleansing Wound Cleanser Wound Cleanser Soap and Water -Foul Odor after Cleansing No No No -Anesthetic Used 5% Lidocaine 5% Lidocaine 5% Lidocaine Gel Gel Gel #18 Left medial LE cluster -Combined with other wound No No -Current Size (cm) - Length 8 8.5 -Current Size (cm) - Width 15 4.5 -Current Size (cm) - Depth 0.1 0.1 -Total Square Cm 120 38.25 -Photo Taken Yes -Tunneling No No -Undermining/Tunneling No No -Circular Undermining No No -Exudate Amt Large Large Medium -Exudate Type Serosanguineous Serosanguineous Serosanguineous -Wound Margin Distinct, Distinct, Distinct, Outline Outline Outline Attached Attached Attached -Granulation Amt Medium (34-66%) Medium (34-66%) Large (67-100%) -Granulation Quality Lingle Lingle Red -Slough/Fibrin Yes Yes -Necrosis Amt Medium (34-66%) Small (1-33%) -Necrotic Tissue Type Adherent Slough Adherent Slough -Structure Exposed N/A N/A -Texture (Marie-wound Skin Appearance) Assessed, Assessed, Assessed Localized Edema Localized Edema ,Scarring -Moisture (Marie-wound Skin Appearance) Assessed Assessed Assessed -Color (Marie-wound Skin Appearance) Assessed Assessed Assessed, Hemosiderin Staining -Temperature (Marie-wound Skin No Abnormality No Abnormality No Abnormality Appearance) (Pt Warm) (Pt Warm) (Pt Warm) -Tenderness on Palpation (Marie-wound No No No Skin Appearance) -Ulcer Cleansing Wound Cleanser Wound Cleanser Soap and Water -Foul Odor after Cleansing No No No -Anesthetic Used 5% Lidocaine 5% Lidocaine 5% Lidocaine Gel Gel Gel Lower Limb Edema Present Yes Yes Right Calf (cm) 47 46.5 Right Ankle (cm) 31 30 Left Calf (cm) 44.5 45.5 Left Ankle (cm) 30.2 30.8 04/05/25 11:53 Wound Center Nurse 1 #24 Left Lateral Leg -Combined with other wound -Current Size (cm) - Length -Current Size (cm) - Width -Current Size (cm) - Depth -Total Square Cm -Photo Taken -Tunneling -Undermining/Tunneling -Circular Undermining -Exudate Amt Large -Exudate Type Serosanguineous -Wound Margin Thickened -Granulation Amt Medium (34-66%) -Granulation Quality Lingle -Slough/Fibrin -Necrosis Amt Medium (34-66%) -Necrotic Tissue Type Adherent Slough -Structure Exposed -Texture (Maire-wound Skin Appearance) Assessed -Moisture (Marie-wound Skin Appearance) Assessed -Color (Marie-wound Skin Appearance) Assessed, Ecchymosis -Temperature (Marie-wound Skin No Abnormality Appearance) (Pt Warm) -Tenderness on Palpation (Marie-wound No Skin Appearance) -Ulcer Cleansing Soap and Water -Foul Odor after Cleansing No -Anesthetic Used 5% Lidocaine Gel #22 R Medial/Lateral leg -Combined with other wound -Current Size (cm) - Length -Current Size (cm) - Width -Current Size (cm) - Depth -Total Square Cm -Photo Taken -Tunneling -Undermining/Tunneling -Circular Undermining -Exudate Amt Large -Exudate Type Serosanguineous -Wound Margin Thickened -Granulation Amt Medium (34-66%) -Granulation Quality Lingle -Slough/Fibrin -Necrosis Amt Medium (34-66%) -Necrotic Tissue Type Adherent Slough -Structure Exposed -Texture (Marie-wound Skin Appearance) Assessed -Moisture (Marie-wound Skin Appearance) Assessed -Color (Marie-wound Skin Appearance) Assessed, Ecchymosis -Temperature (Marie-wound Skin No Abnormality Appearance) (Pt Warm) -Tenderness on Palpation (Marie-wound No Skin Appearance) -Ulcer Cleansing Soap and Water -Foul Odor after Cleansing No -Anesthetic Used 5% Lidocaine Gel #18 Left medial LE cluster -Combined with other wound -Current Size (cm) - Length -Current Size (cm) - Width -Current Size (cm) - Depth -Total Square Cm -Photo Taken -Tunneling -Undermining/Tunneling -Circular Undermining -Exudate Amt Large -Exudate Type Serosanguineous -Wound Margin Thickened -Granulation Amt -Granulation Quality -Slough/Fibrin -Necrosis Amt -Necrotic Tissue Type -Structure Exposed -Texture (Marie-wound Skin Appearance) Assessed -Moisture (Marie-wound Skin Appearance) Assessed, Maceration -Color (Marie-wound Skin Appearance) Assessed, Ecchymosis -Temperature (Marie-wound Skin No Abnormality Appearance) (Pt Warm) -Tenderness on Palpation (Marie-wound No Skin Appearance) -Ulcer Cleansing Soap and Water -Foul Odor after Cleansing No -Anesthetic Used 5% Lidocaine Gel Lower Limb Edema Present Right Calf (cm) Right Ankle (cm) Left Calf (cm) Left Ankle (cm) WC - Nurse 2 - General Ulcer CM Notes Start: 03/15/25 11:57 Freq: Status: Active Protocol: Activity Type Activity Date Activity User E-sign Co-sign Detail Recorded Client Recorded Date Recorded By Document 03/15/25 12:47 [id number] 03/15/25 12:55 Document 03/22/25 12:26 [id number] 03/22/25 12:41 Document 03/29/25 12:01 [id number] 03/29/25 12:18 GM Document 04/05/25 12:33 [id number] 04/05/25 12:46 03/15/25 03/22/25 03/29/25 12:47 12:26 12:01 Wound Center Nurse 2 #24 Left Lateral Leg -Time 12:47 12:26 12:02 -Correct Patient Yes Yes Yes -Correct Side, Site, Position Yes Yes Yes -Correct Procedure Yes Yes Yes -Procedure Performed Yes Yes Yes -Type of Procedure Debridement Debridement Debridement -Clinical Debridement Subcutaneous Subcutaneous Subcutaneous -Tissue Removed Subcutaneous Subcutaneous Subcutaneous -Post Debridement (cm) - Length 1.8 1.6 1.5 -Post Debridement (cm) - Width 1.0 0.5 0.5 -Post Debridement (cm) - Depth 0.1 0.1 0.1 -Total Square (Post) (cm) 1.80 0.80 0.75 -Area of Debridement (cm) - Length 1.8 1.6 1.5 -Area of Debridement (cm) - Width 1.0 0.5 0.5 -Total Square (Area) (cm) 1.80 0.80 0.75 -Tunneling No No No -Undermining/Tunneling No No No -Circular Undermining No No No -Wound/Ulcer Outcome Not Healed Not Healed Not Healed -Ulcer Cleansing Rinsed/ Not Cleansed Rinsed/ Irrigated with Irrigated with Saline Saline -Foul Odor after Cleansing No No No -Bioengineered Tissue No No No -Bleeding Controlled with Pressure NA Pressure -Treatment Response Procedure Procedure Procedure Tolerated Well Tolerated Well Tolerated Well -Offloading No No No -Debridement - Subq, 1st 20sq cm No No No #22 R Medial/Lateral leg -Time 12:48 12:26 12:02 -Correct Patient Yes Yes Yes -Correct Side, Site, Position Yes Yes Yes -Correct Procedure Yes Yes Yes -Procedure Performed Yes Yes Yes -Type of Procedure Debridement Debridement Debridement -Clinical Debridement Subcutaneous Subcutaneous Subcutaneous -Tissue Removed Subcutaneous Subcutaneous Subcutaneous -Post Debridement (cm) - Length 11.0 10.0 10.2 -Post Debridement (cm) - Width 25.3 25.4 26.0 -Post Debridement (cm) - Depth 0.1 0.1 0.1 -Total Square (Post) (cm) 278.30 254.00 265.20 -Area of Debridement (cm) - Length 11.0 10.0 10.2 -Area of Debridement (cm) - Width 25.3 25.4 26.0 -Total Square (Area) (cm) 278.30 254.00 265.20 -Tunneling No No No -Undermining/Tunneling No No No -Circular Undermining No No No -Wound/Ulcer Outcome Not Healed Not Healed Not Healed -Ulcer Cleansing Rinsed/ Rinsed/ Rinsed/ Irrigated with Irrigated with Irrigated with Saline Saline Saline -Foul Odor after Cleansing No No No -Bioengineered Tissue No No No -Bleeding Controlled with Pressure Pressure Pressure -Treatment Response Procedure Procedure Procedure Tolerated Well Tolerated Well Tolerated Well -Offloading No No No -Debridement - Subq, 1st 20sq cm No No No #18 Left medial LE cluster -Time 12:48 12:27 12:03 -Correct Patient Yes Yes Yes -Correct Side, Site, Position Yes Yes Yes -Correct Procedure Yes Yes Yes -Procedure Performed Yes Yes Yes -Type of Procedure Debridement Debridement Debridement -Clinical Debridement Subcutaneous Subcutaneous Subcutaneous -Tissue Removed Subcutaneous Subcutaneous Subcutaneous -Post Debridement (cm) - Length 8.2 8.3 8.3 -Post Debridement (cm) - Width 14.8 13.0 13.3 -Post Debridement (cm) - Depth 0.1 0.1 0.1 -Total Square (Post) (cm) 121.36 107.90 110.39 -Area of Debridement (cm) - Length 8.2 8.3 8.3 -Area of Debridement (cm) - Width 14.8 13.0 13.3 -Total Square (Area) (cm) 121.36 107.90 110.39 -Tunneling No No No -Undermining/Tunneling No No No -Circular Undermining No No No -Wound/Ulcer Outcome Not Healed Not Healed Not Healed -Ulcer Cleansing Rinsed/ Rinsed/ Rinsed/ Irrigated with Irrigated with Irrigated with Saline Saline Saline -Foul Odor after Cleansing No No No -Bioengineered Tissue No No No -Bleeding Controlled with Pressure Pressure Pressure -Treatment Response Procedure Procedure Procedure Tolerated Well Tolerated Well Tolerated Well -Offloading No No No -Debridement - Subq, 1st 20sq cm Yes Yes Yes -Debridement, SubQ, ea addt'l 20sq cm 19 19 18 or part thereof Pain Scale: 0-10 Numeric Is Patient Pain Free? Yes Yes Yes 04/05/25 12:33 Wound Center Nurse 2 #24 Left Lateral Leg -Time 12:34 -Correct Patient Yes -Correct Side, Site, Position Yes -Correct Procedure Yes -Procedure Performed Yes -Type of Procedure Debridement -Clinical Debridement Subcutaneous -Tissue Removed Subcutaneous -Post Debridement (cm) - Length 1.4 -Post Debridement (cm) - Width 0.4 -Post Debridement (cm) - Depth 0.1 -Total Square (Post) (cm) 0.56 -Area of Debridement (cm) - Length 1.4 -Area of Debridement (cm) - Width 0.4 -Total Square (Area) (cm) 0.56 -Tunneling No -Undermining/Tunneling No -Circular Undermining No -Wound/Ulcer Outcome Not Healed -Ulcer Cleansing Rinsed/ Irrigated with Saline -Foul Odor after Cleansing No -Bioengineered Tissue No -Bleeding Controlled with Pressure -Treatment Response Procedure Tolerated Well -Offloading No -Debridement - Subq, 1st 20sq cm No #22 R Medial/Lateral leg -Time 12:34 -Correct Patient Yes -Correct Side, Site, Position Yes -Correct Procedure Yes -Procedure Performed Yes -Type of Procedure Debridement -Clinical Debridement Subcutaneous -Tissue Removed Subcutaneous -Post Debridement (cm) - Length 10.7 -Post Debridement (cm) - Width 26.5 -Post Debridement (cm) - Depth 0.1 -Total Square (Post) (cm) 283.55 -Area of Debridement (cm) - Length 10.7 -Area of Debridement (cm) - Width 26.5 -Total Square (Area) (cm) 283.55 -Tunneling No -Undermining/Tunneling No -Circular Undermining No -Wound/Ulcer Outcome Not Healed -Ulcer Cleansing Rinsed/ Irrigated with Saline -Foul Odor after Cleansing No -Bioengineered Tissue No -Bleeding Controlled with Pressure -Treatment Response Procedure Tolerated Well -Offloading No -Debridement - Subq, 1st 20sq cm No #18 Left medial LE cluster -Time 12:35 -Correct Patient Yes -Correct Side, Site, Position Yes -Correct Procedure Yes -Procedure Performed Yes -Type of Procedure Debridement -Clinical Debridement Subcutaneous -Tissue Removed Subcutaneous -Post Debridement (cm) - Length 8.2 -Post Debridement (cm) - Width 13.8 -Post Debridement (cm) - Depth 0.1 -Total Square (Post) (cm) 113.16 -Area of Debridement (cm) - Length 8.2 -Area of Debridement (cm) - Width 13.8 -Total Square (Area) (cm) 113.16 -Tunneling No -Undermining/Tunneling No -Circular Undermining No -Wound/Ulcer Outcome Not Healed -Ulcer Cleansing Rinsed/ Irrigated with Saline -Foul Odor after Cleansing No -Bioengineered Tissue No -Bleeding Controlled with Pressure -Treatment Response Procedure Tolerated Well -Offloading No -Debridement - Subq, 1st 20sq cm Yes -Debridement, SubQ, ea addt'l 20sq cm or part thereof Pain Scale: 0-10 Numeric Is Patient Pain Free? Yes WC - Nurse 3 - General Ulcer D/C NN Start: 03/15/25 11:57 Freq: Status: Active Protocol: Activity Type Activity Date Activity User E-sign Co-sign Detail Recorded Client Recorded Date Recorded By Document 03/15/25 13:08 RB [id number] 03/15/25 13:10 RB Document 03/22/25 12:44 KW [id number] 03/22/25 12:45 KW Edit Result 03/22/25 12:44 KW (1) [id number] 03/22/25 12:58 RB Document 03/29/25 12:53 RB [id number] 03/29/25 12:55 RB Document 04/05/25 12:51 KW [id number] 04/05/25 12:53 KW (1) #24 Left Lateral Leg - Primary Dressing Applied => Optilok 5x5 1/2 - Optilok 5x5 1/2 => 2 03/15/25 03/22/25 03/29/25 13:08 12:44 12:53 Wound Care Center Nurse 3 #24 Left Lateral Leg -Ulcer Cleansing Rinsed/ Irrigated with Saline -Primary Dressing Applied Optilok 5x5 1/2 Optilok 5x5 1/2 ,Optilok 6.5x10 -Other Dressing ABD -Primary Dressing Covered/Secured with Dry Gauze,Dry Dry Gauze & Dry Gauze & Gauze & Roll Roll Gauze, Roll Gauze, Gauze,Secured Secured with Secured with with Tape Tape Tape -Optilok 5x5 1/2 2 1 -Optilok 6.5x10 2 #22 R Medial/Lateral leg -Primary Dressing Applied -Other Dressing ABD -Primary Dressing Covered/Secured with Dry Gauze,Dry Dry Gauze & Dry Gauze & Gauze & Roll Roll Gauze, Roll Gauze, Gauze,Secured Secured with Secured with with Tape Tape Tape -Optilok 6.5x10 #18 Left medial LE cluster -Other Dressing ABD -Primary Dressing Covered/Secured with Dry Gauze,Dry Dry Gauze & Dry Gauze & Gauze & Roll Roll Gauze, Roll Gauze, Gauze,Secured Secured with Secured with with Tape Tape Tape BLE -Stockings Yes: circaid Yes: PT OWN bilat CIRCAIDS -Other pt circaids Treatment Response Procedure Procedure Tolerated Well Tolerated Well Pain Scale: 0-10 Numeric Is Patient Pain Free? Yes Yes Yes WC - Visit Discharge Discharge Condition Stable Stable Stable Ambulatory Status Ambulatory, Ambulatory, Ambulatory, Walker Walker Walker Transportation Private Auto Private Auto [facility] transport Medication Reconcilliation completed & No No No provided to patient/care provider Clinical Summary of Care Provided Yes Yes Yes 04/05/25 12:51 Wound Care Center Nurse 3 #24 Left Lateral Leg -Ulcer Cleansing -Primary Dressing Applied Optilok 6.5x10 -Other Dressing -Primary Dressing Covered/Secured with -Optilok 5x5 1/2 -Optilok 6.5x10 1 #22 R Medial/Lateral leg -Primary Dressing Applied Optilok 6.5x10 -Other Dressing -Primary Dressing Covered/Secured with -Optilok 6.5x10 2 #18 Left medial LE cluster -Other Dressing superabsorb thats applied to lat side, wrap around -Primary Dressing Covered/Secured with BLE -Stockings -Other pt own circaids Treatment Response Pain Scale: 0-10 Numeric Is Patient Pain Free? Yes WC - Visit Discharge Discharge Condition Stable Ambulatory Status Ambulatory, Walker Transportation Medication Reconcilliation completed & No provided to patient/care provider Clinical Summary of Care Provided Yes Additional Wound Wound debrided: left lateral leg Laterality: Left Type of Debridement: Excisional debridement Anesthesia Used: 5% Lidocaine Gel and Cetacaine Depth: Down to and including healthy tissue and in the subcutaneous layer Percentage of wound debrided: 100 Instrument Used: - (Misonix ultrasonic debridement) Tissue Removed: Yellow slough, devitalized tissue Severity: Fat Layer Exposed Amount of bleeding with debridement: Mild Bleeding Controlled with: Compression and gauze Patient tolerated procedure: Patient tolerated procedure well Additional Wound Wound debrided: right medial leg Laterality: Right Type of Debridement: Excisional debridement Anesthesia Used: 5% Lidocaine Gel and Cetacaine Depth: Down to and including healthy tissue and in the subcutaneous layer Percentage of wound debrided: 100 Instrument Used: - (Misonix ultrasonic debridement) Tissue Removed: Yellow slough, devitalized tissue Severity: Fat Layer Exposed Amount of bleeding with debridement: Mild Bleeding Controlled with: Compression and gauze Patient tolerated procedure: Patient tolerated procedure well Assessment/Plan Assessment/Plan (1) Lymphedema: CODE(S): I89.0 - Lymphedema, not elsewhere classified (2) Hypertension: CODE(S): I10 - Essential (primary) hypertension QUALIFIERS: Hypertension type: primary hypertension Qualified Code(s): I10 - Essential (primary) hypertension (3) Hyperlipidemia: CODE(S): E78.5 - Hyperlipidemia, unspecified QUALIFIERS: Hyperlipidemia type: mixed hyperlipidemia Qualified Code(s): E78.2 - Mixed hyperlipidemia (4) History of DVT (deep vein thrombosis): CODE(S): Z86.718 - Personal history of other venous thrombosis and embolism (5) Venous insufficiency (chronic) (peripheral): CODE(S): I87.2 - Venous insufficiency (chronic) (peripheral) (6) Venous ulcer of left lower extremity with varicose veins: CODE(S): I83.029 - Varicose veins of left lower extremity with ulcer of unspecified site (7) Edema: CODE(S): R60.9 - Edema, unspecified QUALIFIERS: Edema type: unspecified Qualified Code(s): R60.9 - Edema, unspecified (8) 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 At home wound-care instructions: Will use Circaid compression garments with super absorber and kerlix to right LE and left LE changed every other day. Due to his chronic lymphedema and being unable to don traditional compression stockings and the presence of venous ulcers on his LE b/l, it is medically necessary for him to have Circaid compression garments. He is using Circaid compression to both legs. I suspect he is not very compliant with his lymphedemapumps and not getting adequate compression with tubigrips. Due to the delayed progress in wound healing of his venous ulcers, we discussed applying for advanced wound healing product for healing his ulcer. Due to the size of his ulcer, Theraskin application approval was requested from his insurance as it is medically necessary for salvaging his limb and healing his ulcer. He underwent 2 applications of Theraskin to this ulcer. Since applicationof Theraskin he had much improvement in epithelialization of his ulcer even though the overall size is not significantly changed there was progress. He is using Circaid compression wraps. Off-loading: The patient was instructed to avoid pressure and friction on the affected areas. Reposition every 2 hours at minimum. Avoid prolonged standing and/or dangling of legs. When seated, feet should be elevated at chest level. Frequent ambulation is encouraged. Encouraged lymphedema pump use. Diet: Patient encouraged to increase protein intake while taking caution to avoid high carbohydrate and/or sugar intake. Labs/cultures/imaging: Wound culture showed Pseudomonas, Escherichia hermannii, Raoultella planticola, Vancomycin Resist. E. faecalis, Alcaligenes faecalis ssp faeca, Staphylococcus cohnii urealyti and anaerobic bacteria on 06/15/24 and he completed on Levofloxacin and Augmentin. Wound culture taken today on right lateral ulcer which showed Raoultella planticola, Staph hemolyticus, staph epidermidis and morganella morganii but no anaeroobic bacteria, Levofloxacin anddoxycyline were prescribed based on culture results. Labs ordered 10/19/2024. Vitamin D was low A1C 5.4% Wound culture from 12/07/24 was positive for Providencia stuartii, Vancomycin resistant E. Faecalis, Corynebacterium striatum and completed Augmentin orally. Follow-up: Return in 2 weeks for wound care follow up and have dressing changed by home health Mondays. Return sooner or report to the emergency room should symptoms worsen, or new symptoms arise. Note: [employer] speech recognition hair tinter software was used to create portions of this document. Sound-alike and misspelled words, as well as other hair tinter errors may be contained in the documentation. 04/05/25 1430 <Electronically signed by Patricia Garcia DO> Cosigner Signature (if applicable): CC: ~ Signed [facility] Work Phone: [phone] Progress note [facility] [address] [place] [address] Progress Note - Wound Care 04/05/25 1429 MR#: [id number] Acct: [id number] Name: ESTEBAN URBINA Rep #:[id number] : 1955 69 From: Patricia Garcia DO PCP: Dr. Patricia Garcia, DO Status:REG RCR Location: History of Present Illness Date of Service: 04/05/25 Chief Complaint: venous ulcers of left lower extremity History of Wound: Mauricio is a 69 yo gentleman who is here today for evaluation of ulcers to to his bilateral lower legs. [facility]. The left LE ulcer started after he developed increased swelling and blisters of left leg in Octoberand the right leg started sometime at the end of October. He was seen at PCP's office a culture was taken and it was resistant to several antibiotics. He wastreated initially with Levaquin but had myalgias and then was treated with doxycycline which he finished 2 days ago. He denies improvementand is having swelling to his left calf and thigh. He has been having swelling to both lower extremities for many years and it has worsened over the last few chirag hs. He has not been compliant with compression. He has had increased pain especially in the left leg. He has clear yellow drainage and redness without odor or warmth. He is anti- coagulated on coumadin. He has been washing with Dial soap and witch ifrah. He had been using Collagen at times and using Calcium Alginate and covering with ABD pads during October. He was treated with 3M compression and Aquacel Ag. He was referred to the wound center for ongoing treatment. His ulcers have moderate to heavy drainage. He was in the hospital from 11/30/22 until 12/09/22 for treatment of cellulitis andedema. He underwenttreatment with Vancomycin and IV lasix and compression. Discharged on 12/09/22. He returned to his assisted living apartment on Tuesday12/21/22. Wound culture from 12/07/24 was positive for Providencia stuartii, Vancomycin resistant E. Faecalis,Corynebacterium striatum and completed Augmentin orally. His edema is better this week and he is tolerating Circaid compression. 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 He continues to use his lymphedema pumps but continues to have painwith use of these pumps. 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 Progress of Wound: Mauricio is here today in follow up for chronic venous ulceration to the left lower extremity right lower extremity venous ulcer that is nearly circumferential. There continues to be mild improvement in both ulcers over the last week. He is more compliant with elevation but still is not compliant with compression pump frequency. he denies increased drainage, pain, or odor. Subjective Subjective Mauricio is a 69-year-old male with longstanding history of chronic venous ulcerationto the left lower extremity and now a right lower extremity venous ulcer that isnearly circumferential. There continuesto be mild improvement in both ulcers over the last week. He is more compliant with elevation but still is not compliant with compression pump frequency. Wound culture from 12/07/24 was positive for Providencia stuartii, Vancomycin resistant E. Faecalis,Corynebacterium striatum and completed Augmentin orally. His edema is better this week and he is tolerating Circaid compression. 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 He continues to use his lymphedema pumps but continues to have painwith use of these pumps. 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 Objective Data Objective Data Vital Signs: Vital Signs Temp Pulse Resp BP O2 Del Method 96.9 F L 61 18 171/100 H Room Air 04/05/25 11:53 04/05/25 11:53 04/05/25 11:53 04/05/25 11:53 04/05/25 11:53 Oxygen Delivery Method Room Air Physical Exam Const alert, oriented x3 and no apparent distress General Appearance: cooperative and comfortable HEENT normocephalic and head/scalp atraumatic Lymph Lymphatic: lymphedema moderate Resp normal respiratory effort Effort and Inspection: able to speak in complete sentences Cardio regular rate and regular rhythm Extremity Extremity Narrative: His ulcers are painful and the right lower leg remains more swollen than his left but there is goodgranulation tissue throughout and slough that is nearly completely removed post - debridement, edges of ulcers are beveled without rolled borders General Extremity: edema bilateral lower extremity Details: severe Skin General Skin Exam: venous stasis and dermatitis Wounds: wounds noted Wound Narrative: as in clinical panel, + devitalized tissue, there is increased depth, + granulation tissue bilateral ulcer with good granulation and moderate to heavy slough prior to debridement and minimalpost debridement Psych mental status grossly normal, thought process normal, cooperative and affect normal Debridement Note Debridement Note Wound debrided: left medial LE ulcer Laterality: Left Type of Debridement: Excisional debridement Anesthesia Used: 5% Lidocaine Gel and Cetacaine Depth: Down to and including healthy tissue and in the subcutaneous layer Percentage of wound debrided: 100 Instrument Used: - (Misonix ultrasonic debridement) Tissue Removed: Yellow slough, devitalized tissue Severity: Fat Layer Exposed Amount of bleeding with debridement: Mild Bleeding Controlled with: Compression and gauze Patient tolerated procedure: Patient tolerated procedure well Post-Debridement Measurements and Additional Note: Post-Debridement Measurements/Treatment WC - Nurse 1 - General Ulcer Assessment Start: 03/15/25 11:57 Freq: Status: Active Protocol: ONDINA Activity Type Activity Date Activity User E-sign Co-sign Detail Recorded Client Recorded Date Recorded By Document 03/15/25 11:57 RB [id number] 03/15/25 12:01 RB Document 03/22/25 11:44 RB [id number] 03/22/25 11:51 RB Document 03/29/25 11:21 KW [id number] 03/29/25 11:34 KW Document 04/05/25 11:53 KW [id number] 04/05/25 12:14 KW 03/15/25 03/22/25 03/29/25 11:57 11:44 11:21 - Today's Visit Information Type of service Follow-up Visit Follow-up Visit Follow-up Visit (Physician/APPLICATIONS SPECIALIST (Physician/APPLICATIONS SPECIALIST (Physician/APPLICATIONS SPECIALIST ) ) ) Arrival Mode Ambulatory, Ambulatory Ambulatory, Walker Walker Transfer Assistance Manual None Patient Identification Verified (Name & Yes Yes Yes ) Patient Requires Transmission-Based No No Precautions Vital Signs Temperature (97.8 F-99.1 F) 96.2 F L 97.3 F L Temperature Source Temporal Temporal Pulse Rate (60-100) 59 L 61 Pulse Location Monitor Monitor Respiratory Rate (12-18) 18 18 Respiratory rate source Observation Observation Oxygen Delivery Method Room Air Blood Pressure (90/60-120/80) 154/82 H 145/79 H Blood Pressure Mean (mm Hg) 106 101 Source Monitor Monitor Position Sitting Semi-Fowlers Blood Pressure Location Left Arm Right Arm History Since Last Visit- (Skip if this is Patient's initial visit) Have you changed medications since your No No last visit? Any new allergies or adverse reactions No No Had a fall/change in ADL's that may No No increase risk of falls Signs or symptoms of abuse and/or No No neglect since last visit Have you been in the hospital since your No No last visit? Has dressing in place as prescribed Yes Yes Has compression in place as prescribed Yes Yes Has offloadiing in place as prescribed N/A N/A Experienced any changes in pain level or No No management Left Footwear Regular Shoe Regular Shoe Right Footwear Regular Shoe Regular Shoe Pain Scale: 0-10 Numeric Is Patient Pain Free? No Yes Yes ble -Description Aching -Intensity 6 -Duration (hours) Acute -Pain Behavior Withdrawal from Touch -Pain Aggravating Factors Exercise/ Activity, Debridement -Alleviating Factors/Interventions Medication -Effectiveness of Alleviating Factor/ Moderately Intervention effective 04/05/25 11:53 - Today's Visit Information Type of service Follow-up Visit (Physician/APPLICATIONS SPECIALIST ) Arrival Mode Ambulatory, Wheelchair Transfer Assistance Patient Identification Verified (Name & Yes ) Patient Requires Transmission-Based Precautions Vital Signs Temperature (97.8 F-99.1 F) 96.9 F L Temperature Source Temporal Pulse Rate (60-100) 61 Pulse Location Monitor Respiratory Rate (12-18) 18 Respiratory rate source Observation Oxygen Delivery Method Room Air Blood Pressure (90/60-120/80) 171/100 H Blood Pressure Mean (mm Hg) 123 Source Monitor Position Semi-Fowlers Blood Pressure Location Right Arm History Since Last Visit- (Skip if this is Patient's initial visit) Have you changed medications since your No last visit? Any new allergies or adverse reactions No Had a fall/change in ADL's that may No increase risk of falls Signs or symptoms of abuse and/or No neglect since last visit Have you been in the hospital since your No last visit? Has dressing in place as prescribed Yes Has compression in place as prescribed Yes Has offloadiing in place as prescribed N/A Experienced any changes in pain level or No management Left Footwear Regular Shoe Right Footwear Regular Shoe Pain Scale: 0-10 Numeric Is Patient Pain Free? Yes ble -Description -Intensity -Duration (hours) -Pain Behavior -Pain Aggravating Factors -Alleviating Factors/Interventions -Effectiveness of Alleviating Factor/ Intervention - Nurse 1 - General Ulcer Measurement Start: 03/15/25 11:57 Freq: Status: Active Protocol: Activity Type Activity Date Activity User E-sign Co-sign Detail Recorded Client Recorded Date Recorded By Document 03/15/25 11:57 RB [id number] 03/15/25 12:01 RB Document 03/22/25 11:44 RB [id number] 03/22/25 11:51 RB Document 03/29/25 11:21 KW [id number] 03/29/25 11:34 KW Document 04/05/25 11:53 KW [id number] 04/05/25 12:14 KW 03/15/25 03/22/25 03/29/25 11:57 11:44 11:21 Wound Center Nurse 1 #24 Left Lateral Leg -Combined with other wound No No -Current Size (cm) - Length 2 1.5 -Current Size (cm) - Width 0.7 0.7 -Current Size (cm) - Depth 0.1 0.1 -Total Square Cm 1.4 1.05 -Photo Taken Yes -Tunneling No No -Undermining/Tunneling No No -Circular Undermining No No -Exudate Amt Large Large Medium -Exudate Type Serosanguineous Serosanguineous Serosanguineous -Wound Margin Distinct, Distinct, Distinct, Outline Outline Outline Attached Attached Attached -Granulation Amt Large (67-100%) Medium (34-66%) Large (67-100%) -Granulation Quality Lingle Lingle Red -Slough/Fibrin Yes Yes -Necrosis Amt Small (1-33%) Medium (34-66%) -Necrotic Tissue Type Adherent Slough Adherent Slough -Structure Exposed N/A N/A -Texture (Marie-wound Skin Appearance) Assessed, Assessed, Assessed Scarring Localized Edema -Moisture (Marie-wound Skin Appearance) Assessed Assessed Assessed -Color (Marie-wound Skin Appearance) Assessed Assessed Assessed, Hemosiderin Staining -Temperature (Marie-wound Skin No Abnormality No Abnormality No Abnormality Appearance) (Pt Warm) (Pt Warm) (Pt Warm) -Tenderness on Palpation (Marie-wound No No No Skin Appearance) -Ulcer Cleansing Wound Cleanser Wound Cleanser Soap and Water -Foul Odor after Cleansing No No No -Anesthetic Used 5% Lidocaine 5% Lidocaine 5% Lidocaine Gel Gel Gel #22 R Medial/Lateral leg -Combined with other wound No No -Current Size (cm) - Length 11 30.5 -Current Size (cm) - Width 29 8.5 -Current Size (cm) - Depth 0.2 0.2 -Total Square Cm 319 259.25 -Photo Taken Yes -Tunneling No No -Undermining/Tunneling No No -Circular Undermining No No -Exudate Amt Large Medium Medium -Exudate Type Serosanguineous Serosanguineous Serosanguineous -Wound Margin Distinct, Distinct, Distinct, Outline Outline Outline Attached Attached Attached -Granulation Amt Medium (34-66%) Medium (34-66%) Large (67-100%) -Granulation Quality Lingle Lingle Red -Slough/Fibrin Yes Yes -Necrosis Amt Small (1-33%) Medium (34-66%) -Necrotic Tissue Type Adherent Slough Adherent Slough -Structure Exposed N/A N/A -Texture (Marie-wound Skin Appearance) Assessed, Assessed, Assessed Scarring Localized Edema -Moisture (Marie-wound Skin Appearance) Assessed Assessed Assessed -Color (Marie-wound Skin Appearance) Assessed Assessed Assessed, Hemosiderin Staining -Temperature (Marie-wound Skin No Abnormality No Abnormality No Abnormality Appearance) (Pt Warm) (Pt Warm) (Pt Warm) -Tenderness on Palpation (Marie-wound No No No Skin Appearance) -Ulcer Cleansing Wound Cleanser Wound Cleanser Soap and Water -Foul Odor after Cleansing No No No -Anesthetic Used 5% Lidocaine 5% Lidocaine 5% Lidocaine Gel Gel Gel #18 Left medial LE cluster -Combined with other wound No No -Current Size (cm) - Length 8 8.5 -Current Size (cm) - Width 15 4.5 -Current Size (cm) - Depth 0.1 0.1 -Total Square Cm 120 38.25 -Photo Taken Yes -Tunneling No No -Undermining/Tunneling No No -Circular Undermining No No -Exudate Amt Large Large Medium -Exudate Type Serosanguineous Serosanguineous Serosanguineous -Wound Margin Distinct, Distinct, Distinct, Outline Outline Outline Attached Attached Attached -Granulation Amt Medium (34-66%) Medium (34-66%) Large (67-100%) -Granulation Quality Lingle Lingle Red -Slough/Fibrin Yes Yes -Necrosis Amt Medium (34-66%) Small (1-33%) -Necrotic Tissue Type Adherent Slough Adherent Slough -Structure Exposed N/A N/A -Texture (Marie-wound Skin Appearance) Assessed, Assessed, Assessed Localized Edema Localized Edema ,Scarring -Moisture (Marie-wound Skin Appearance) Assessed Assessed Assessed -Color (Marie-wound Skin Appearance) Assessed Assessed Assessed, Hemosiderin Staining -Temperature (Marie-wound Skin No Abnormality No Abnormality No Abnormality Appearance) (Pt Warm) (Pt Warm) (Pt Warm) -Tenderness on Palpation (Marie-wound No No No Skin Appearance) -Ulcer Cleansing Wound Cleanser Wound Cleanser Soap and Water -Foul Odor after Cleansing No No No -Anesthetic Used 5% Lidocaine 5% Lidocaine 5% Lidocaine Gel Gel Gel Lower Limb Edema Present Yes Yes Right Calf (cm) 47 46.5 Right Ankle (cm) 31 30 Left Calf (cm) 44.5 45.5 Left Ankle (cm) 30.2 30.8 04/05/25 11:53 Wound Center Nurse 1 #24 Left Lateral Leg -Combined with other wound -Current Size (cm) - Length -Current Size (cm) - Width -Current Size (cm) - Depth -Total Square Cm -Photo Taken -Tunneling -Undermining/Tunneling -Circular Undermining -Exudate Amt Large -Exudate Type Serosanguineous -Wound Margin Thickened -Granulation Amt Medium (34-66%) -Granulation Quality Lingle -Slough/Fibrin -Necrosis Amt Medium (34-66%) -Necrotic Tissue Type Adherent Slough -Structure Exposed -Texture (Marie-wound Skin Appearance) Assessed -Moisture (Marie-wound Skin Appearance) Assessed -Color (Marie-wound Skin Appearance) Assessed, Ecchymosis -Temperature (Marie-wound Skin No Abnormality Appearance) (Pt Warm) -Tenderness on Palpation (Marie-wound No Skin Appearance) -Ulcer Cleansing Soap and Water -Foul Odor after Cleansing No -Anesthetic Used 5% Lidocaine Gel #22 R Medial/Lateral leg -Combined with other wound -Current Size (cm) - Length -Current Size (cm) - Width -Current Size (cm) - Depth -Total Square Cm -Photo Taken -Tunneling -Undermining/Tunneling -Circular Undermining -Exudate Amt Large -Exudate Type Serosanguineous -Wound Margin Thickened -Granulation Amt Medium (34-66%) -Granulation Quality Lingle -Slough/Fibrin -Necrosis Amt Medium (34-66%) -Necrotic Tissue Type Adherent Slough -Structure Exposed -Texture (Marie-wound Skin Appearance) Assessed -Moisture (Marie-wound Skin Appearance) Assessed -Color (Marie-wound Skin Appearance) Assessed, Ecchymosis -Temperature (Marie-wound Skin No Abnormality Appearance) (Pt Warm) -Tenderness on Palpation (Marie-wound No Skin Appearance) -Ulcer Cleansing Soap and Water -Foul Odor after Cleansing No -Anesthetic Used 5% Lidocaine Gel #18 Left medial LE cluster -Combined with other wound -Current Size (cm) - Length -Current Size (cm) - Width -Current Size (cm) - Depth -Total Square Cm -Photo Taken -Tunneling -Undermining/Tunneling -Circular Undermining -Exudate Amt Large -Exudate Type Serosanguineous -Wound Margin Thickened -Granulation Amt -Granulation Quality -Slough/Fibrin -Necrosis Amt -Necrotic Tissue Type -Structure Exposed -Texture (Marie-wound Skin Appearance) Assessed -Moisture (Marie-wound Skin Appearance) Assessed, Maceration -Color (Marie-wound Skin Appearance) Assessed, Ecchymosis -Temperature (Marie-wound Skin No Abnormality Appearance) (Pt Warm) -Tenderness on Palpation (Marie-wound No Skin Appearance) -Ulcer Cleansing Soap and Water -Foul Odor after Cleansing No -Anesthetic Used 5% Lidocaine Gel Lower Limb Edema Present Right Calf (cm) Right Ankle (cm) Left Calf (cm) Left Ankle (cm) WC - Nurse 2 - General Ulcer CM Notes Start: 03/15/25 11:57 Freq: Status: Active Protocol: Activity Type Activity Date Activity User E-sign Co-sign Detail Recorded Client Recorded Date Recorded By Document 03/15/25 12:47 [id number] 03/15/25 12:55 Document 03/22/25 12:26 [id number] 03/22/25 12:41 Document 03/29/25 12:01 [id number] 03/29/25 12:18 Document 04/05/25 12:33 [id number] 04/05/25 12:46 03/15/25 03/22/25 03/29/25 12:47 12:26 12:01 Wound Center Nurse 2 #24 Left Lateral Leg -Time 12:47 12:26 12:02 -Correct Patient Yes Yes Yes -Correct Side, Site, Position Yes Yes Yes -Correct Procedure Yes Yes Yes -Procedure Performed Yes Yes Yes -Type of Procedure Debridement Debridement Debridement -Clinical Debridement Subcutaneous Subcutaneous Subcutaneous -Tissue Removed Subcutaneous Subcutaneous Subcutaneous -Post Debridement (cm) - Length 1.8 1.6 1.5 -Post Debridement (cm) - Width 1.0 0.5 0.5 -Post Debridement (cm) - Depth 0.1 0.1 0.1 -Total Square (Post) (cm) 1.80 0.80 0.75 -Area of Debridement (cm) - Length 1.8 1.6 1.5 -Area of Debridement (cm) - Width 1.0 0.5 0.5 -Total Square (Area) (cm) 1.80 0.80 0.75 -Tunneling No No No -Undermining/Tunneling No No No -Circular Undermining No No No -Wound/Ulcer Outcome Not Healed Not Healed Not Healed -Ulcer Cleansing Rinsed/ Not Cleansed Rinsed/ Irrigated with Irrigated with Saline Saline -Foul Odor after Cleansing No No No -Bioengineered Tissue No No No -Bleeding Controlled with Pressure NA Pressure -Treatment Response Procedure Procedure Procedure Tolerated Well Tolerated Well Tolerated Well -Offloading No No No -Debridement - Subq, 1st 20sq cm No No No #22 R Medial/Lateral leg -Time 12:48 12:26 12:02 -Correct Patient Yes Yes Yes -Correct Side, Site, Position Yes Yes Yes -Correct Procedure Yes Yes Yes -Procedure Performed Yes Yes Yes -Type of Procedure Debridement Debridement Debridement -Clinical Debridement Subcutaneous Subcutaneous Subcutaneous -Tissue Removed Subcutaneous Subcutaneous Subcutaneous -Post Debridement (cm) - Length 11.0 10.0 10.2 -Post Debridement (cm) - Width 25.3 25.4 26.0 -Post Debridement (cm) - Depth 0.1 0.1 0.1 -Total Square (Post) (cm) 278.30 254.00 265.20 -Area of Debridement (cm) - Length 11.0 10.0 10.2 -Area of Debridement (cm) - Width 25.3 25.4 26.0 -Total Square (Area) (cm) 278.30 254.00 265.20 -Tunneling No No No -Undermining/Tunneling No No No -Circular Undermining No No No -Wound/Ulcer Outcome Not Healed Not Healed Not Healed -Ulcer Cleansing Rinsed/ Rinsed/ Rinsed/ Irrigated with Irrigated with Irrigated with Saline Saline Saline -Foul Odor after Cleansing No No No -Bioengineered Tissue No No No -Bleeding Controlled with Pressure Pressure Pressure -Treatment Response Procedure Procedure Procedure Tolerated Well Tolerated Well Tolerated Well -Offloading No No No -Debridement - Subq, 1st 20sq cm No No No #18 Left medial LE cluster -Time 12:48 12:27 12:03 -Correct Patient Yes Yes Yes -Correct Side, Site, Position Yes Yes Yes -Correct Procedure Yes Yes Yes -Procedure Performed Yes Yes Yes -Type of Procedure Debridement Debridement Debridement -Clinical Debridement Subcutaneous Subcutaneous Subcutaneous -Tissue Removed Subcutaneous Subcutaneous Subcutaneous -Post Debridement (cm) - Length 8.2 8.3 8.3 -Post Debridement (cm) - Width 14.8 13.0 13.3 -Post Debridement (cm) - Depth 0.1 0.1 0.1 -Total Square (Post) (cm) 121.36 107.90 110.39 -Area of Debridement (cm) - Length 8.2 8.3 8.3 -Area of Debridement (cm) - Width 14.8 13.0 13.3 -Total Square (Area) (cm) 121.36 107.90 110.39 -Tunneling No No No -Undermining/Tunneling No No No -Circular Undermining No No No -Wound/Ulcer Outcome Not Healed Not Healed Not Healed -Ulcer Cleansing Rinsed/ Rinsed/ Rinsed/ Irrigated with Irrigated with Irrigated with Saline Saline Saline -Foul Odor after Cleansing No No No -Bioengineered Tissue No No No -Bleeding Controlled with Pressure Pressure Pressure -Treatment Response Procedure Procedure Procedure Tolerated Well Tolerated Well Tolerated Well -Offloading No No No -Debridement - Subq, 1st 20sq cm Yes Yes Yes -Debridement, SubQ, ea addt'l 20sq cm 19 19 18 or part thereof Pain Scale: 0-10 Numeric Is Patient Pain Free? Yes Yes Yes 04/05/25 12:33 Wound Center Nurse 2 #24 Left Lateral Leg -Time 12:34 -Correct Patient Yes -Correct Side, Site, Position Yes -Correct Procedure Yes -Procedure Performed Yes -Type of Procedure Debridement -Clinical Debridement Subcutaneous -Tissue Removed Subcutaneous -Post Debridement (cm) - Length 1.4 -Post Debridement (cm) - Width 0.4 -Post Debridement (cm) - Depth 0.1 -Total Square (Post) (cm) 0.56 -Area of Debridement (cm) - Length 1.4 -Area of Debridement (cm) - Width 0.4 -Total Square (Area) (cm) 0.56 -Tunneling No -Undermining/Tunneling No -Circular Undermining No -Wound/Ulcer Outcome Not Healed -Ulcer Cleansing Rinsed/ Irrigated with Saline -Foul Odor after Cleansing No -Bioengineered Tissue No -Bleeding Controlled with Pressure -Treatment Response Procedure Tolerated Well -Offloading No -Debridement - Subq, 1st 20sq cm No #22 R Medial/Lateral leg -Time 12:34 -Correct Patient Yes -Correct Side, Site, Position Yes -Correct Procedure Yes -Procedure Performed Yes -Type of Procedure Debridement -Clinical Debridement Subcutaneous -Tissue Removed Subcutaneous -Post Debridement (cm) - Length 10.7 -Post Debridement (cm) - Width 26.5 -Post Debridement (cm) - Depth 0.1 -Total Square (Post) (cm) 283.55 -Area of Debridement (cm) - Length 10.7 -Area of Debridement (cm) - Width 26.5 -Total Square (Area) (cm) 283.55 -Tunneling No -Undermining/Tunneling No -Circular Undermining No -Wound/Ulcer Outcome Not Healed -Ulcer Cleansing Rinsed/ Irrigated with Saline -Foul Odor after Cleansing No -Bioengineered Tissue No -Bleeding Controlled with Pressure -Treatment Response Procedure Tolerated Well -Offloading No -Debridement - Subq, 1st 20sq cm No #18 Left medial LE cluster -Time 12:35 -Correct Patient Yes -Correct Side, Site, Position Yes -Correct Procedure Yes -Procedure Performed Yes -Type of Procedure Debridement -Clinical Debridement Subcutaneous -Tissue Removed Subcutaneous -Post Debridement (cm) - Length 8.2 -Post Debridement (cm) - Width 13.8 -Post Debridement (cm) - Depth 0.1 -Total Square (Post) (cm) 113.16 -Area of Debridement (cm) - Length 8.2 -Area of Debridement (cm) - Width 13.8 -Total Square (Area) (cm) 113.16 -Tunneling No -Undermining/Tunneling No -Circular Undermining No -Wound/Ulcer Outcome Not Healed -Ulcer Cleansing Rinsed/ Irrigated with Saline -Foul Odor after Cleansing No -Bioengineered Tissue No -Bleeding Controlled with Pressure -Treatment Response Procedure Tolerated Well -Offloading No -Debridement - Subq, 1st 20sq cm Yes -Debridement, SubQ, ea addt'l 20sq cm or part thereof Pain Scale: 0-10 Numeric Is Patient Pain Free? Yes WC - Nurse 3 - General Ulcer D/C NN Start: 03/15/25 11:57 Freq: Status: Active Protocol: Activity Type Activity Date Activity User E-sign Co-sign Detail Recorded Client Recorded Date Recorded By Document 03/15/25 13:08 RB [id number] 03/15/25 13:10 RB Document 03/22/25 12:44 KW [id number] 03/22/25 12:45 KW Edit Result 03/22/25 12:44 KW (1) [id number] 03/22/25 12:58 RB Document 03/29/25 12:53 RB [id number] 03/29/25 12:55 RB Document 04/05/25 12:51 KW [id number] 04/05/25 12:53 KW (1) #24 Left Lateral Leg - Primary Dressing Applied => Optilok 5x5 1/2 - Optilok 5x5 1/2 => 2 03/15/25 03/22/25 03/29/25 13:08 12:44 12:53 Wound Care Center Nurse 3 #24 Left Lateral Leg -Ulcer Cleansing Rinsed/ Irrigated with Saline -Primary Dressing Applied Optilok 5x5 1/2 Optilok 5x5 1/2 ,Optilok 6.5x10 -Other Dressing ABD -Primary Dressing Covered/Secured with Dry Gauze,Dry Dry Gauze & Dry Gauze & Gauze & Roll Roll Gauze, Roll Gauze, Gauze,Secured Secured with Secured with with Tape Tape Tape -Optilok 5x5 1/2 2 1 -Optilok 6.5x10 2 #22 R Medial/Lateral leg -Primary Dressing Applied -Other Dressing ABD -Primary Dressing Covered/Secured with Dry Gauze,Dry Dry Gauze & Dry Gauze & Gauze & Roll Roll Gauze, Roll Gauze, Gauze,Secured Secured with Secured with with Tape Tape Tape -Optilok 6.5x10 #18 Left medial LE cluster -Other Dressing ABD -Primary Dressing Covered/Secured with Dry Gauze,Dry Dry Gauze & Dry Gauze & Gauze & Roll Roll Gauze, Roll Gauze, Gauze,Secured Secured with Secured with with Tape Tape Tape BLE -Stockings Yes: circaid Yes: PT OWN bilat CIRCAIDS -Other pt circaids Treatment Response Procedure Procedure Tolerated Well Tolerated Well Pain Scale: 0-10 Numeric Is Patient Pain Free? Yes Yes Yes WC - Visit Discharge Discharge Condition Stable Stable Stable Ambulatory Status Ambulatory, Ambulatory, Ambulatory, Walker Walker Walker Transportation Private Auto Private Auto [facility] transport Medication Reconcilliation completed & No No No provided to patient/care provider Clinical Summary of Care Provided Yes Yes Yes 04/05/25 12:51 Wound Care Center Nurse 3 #24 Left Lateral Leg -Ulcer Cleansing -Primary Dressing Applied Optilok 6.5x10 -Other Dressing -Primary Dressing Covered/Secured with -Optilok 5x5 1/2 -Optilok 6.5x10 1 #22 R Medial/Lateral leg -Primary Dressing Applied Optilok 6.5x10 -Other Dressing -Primary Dressing Covered/Secured with -Optilok 6.5x10 2 #18 Left medial LE cluster -Other Dressing superabsorb thats applied to lat side, wrap around -Primary Dressing Covered/Secured with BLE -Stockings -Other pt own circaids Treatment Response Pain Scale: 0-10 Numeric Is Patient Pain Free? Yes WC - Visit Discharge Discharge Condition Stable Ambulatory Status Ambulatory, Walker Transportation Medication Reconcilliation completed & No provided to patient/care provider Clinical Summary of Care Provided Yes Additional Wound Wound debrided: left lateral leg Laterality: Left Type of Debridement: Excisional debridement Anesthesia Used: 5% Lidocaine Gel and Cetacaine Depth: Down to and including healthy tissue and in the subcutaneous layer Percentage of wound debrided: 100 Instrument Used: - (Misonix ultrasonic debridement) Tissue Removed: Yellow slough, devitalized tissue Severity: Fat Layer Exposed Amount of bleeding with debridement: Mild Bleeding Controlled with: Compression and gauze Patient tolerated procedure: Patient tolerated procedure well Additional Wound Wound debrided: right medial leg Laterality: Right Type of Debridement: Excisional debridement Anesthesia Used: 5% Lidocaine Gel and Cetacaine Depth: Down to and including healthy tissue and in the subcutaneous layer Percentage of wound debrided: 100 Instrument Used: - (Misonix ultrasonic debridement) Tissue Removed: Yellow slough, devitalized tissue Severity: Fat Layer Exposed Amount of bleeding with debridement: Mild Bleeding Controlled with: Compression and gauze Patient tolerated procedure: Patient tolerated procedure well Assessment/Plan Assessment/Plan (1) Lymphedema: CODE(S): I89.0 - Lymphedema, not elsewhere classified (2) Hypertension: CODE(S): I10 - Essential (primary) hypertension QUALIFIERS: Hypertension type: primary hypertension Qualified Code(s): I10 - Essential (primary) hypertension (3) Hyperlipidemia: CODE(S): E78.5 - Hyperlipidemia, unspecified QUALIFIERS: Hyperlipidemia type: mixed hyperlipidemia Qualified Code(s): E78.2 - Mixed hyperlipidemia (4) History of DVT (deep vein thrombosis): CODE(S): Z86.718 - Personal history of other venous thrombosis and embolism (5) Venous insufficiency (chronic) (peripheral): CODE(S): I87.2 - Venous insufficiency (chronic) (peripheral) (6) Venous ulcer of left lower extremity with varicose veins: CODE(S): I83.029 - Varicose veins of left lower extremity with ulcer of unspecified site (7) Edema: CODE(S): R60.9 - Edema, unspecified QUALIFIERS: Edema type: unspecified Qualified Code(s): R60.9 - Edema, unspecified (8) 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 At home wound-care instructions: Will use Circaid compression garments with super absorber and kerlix to right LE and left LE changed every other day. Due to his chronic lymphedema and being unable to don traditional compression stockings and the presence of venous ulcers on his LE b/l, it is medically necessary for him to have Circaid compression garments. He is using Circaid compression to both legs. I suspect he is not very compliant with his l ymphedemapumps and not getting adequate compression with tubigrips. Due to the delayed progress in wound healing of his venous ulcers, we discussed applying for advanced wound healing product for healing his ulcer. Due to the size of his ulcer, Theraskin application approval was requested from his insurance as it is medically necessary for salvaging his limb and healing his ulcer. He underwent 2 applications of Theraskin to this ulcer. Since applicationof Theraskin he had much improvement in epithelialization of his ulcer even though the overall size is not significantly changed there was progress. He is using Circaid compression wraps. Off-loading: The patient was instructed to avoid pressure and friction on the affected areas. Reposition every 2 hours at minimum. Avoid prolonged standing and/or dangling of legs. When seated, feet should be elevated at chest level. Frequent ambulation is encouraged. Encouraged lymphedema pump use. Diet: Patient encouraged to increase protein intake while taking caution to avoid high carbohydrateand/or sugar intake. Labs/cultures/imaging: Wound culture showed Pseudomonas, Escherichia hermannii, Raoultella planticola, Vancomycin Resist. E. faecalis, Alcaligenes faecalis ssp faeca, Staphylococcus cohnii urealyti and anaerobic bacteria on 06/15/24 and he completed on Levofloxacin and Augmentin. Wound culture taken today on right lateral ulcer which showed Raoultella planticola, Staph hemolyticus, staph epidermidis and morganella morganii but no anaeroobic bacteria, Levofloxacin anddoxycyline were prescribed based on culture results. Labs ordered 10/19/2024. Vitamin D was low A1C 5.4% Wound culture from 12/07/24 was positive for Providencia stuartii, Vancomycin resistant E. Faecalis, Corynebacterium striatum and completed Augmentinorally. Follow-up: Return in 2 weeks for wound care follow up and have dressing changed by home health Mondays. Return sooner or report to the emergency room should symptoms worsen, or new symptoms arise. Note: [employer] speech recognition hair tinter software was used to create portions of this document. Sound-alike and misspelled words, as well as other hair tinter errors may be contained in the documentation. 04/05/25 1430 Cosigner Signature (if applicable): CC: ~ Signed [facility]2025 Progress note Author Patricia Garcia [facility] Note Date/Time March 29, 2025 1:59 pm [facility] [address] [place] [address] Progress Note - Wound Care 03/29/25 1353 MR#: [id number] Acct: [id number] Name: ESTEBAN URBINA Rep #:[id number] : 1955 69 From: Patricia Garcia DO PCP: Dr. Patricia Garcia, DO Status:REG RCR Location: History of Present Illness Date of Service: 03/29/25 Chief Complaint: venous ulcers of left lower extremity History of Wound: Mauricio is a 69 yo gentleman who is here today for evaluation of ulcers to to his bilateral lower legs. [facility]. The left LE ulcer started after he developed increased swelling and blisters of left leg in October and the right leg started sometime at the end of October. He was seen at PCP's office a culture was taken and it was resistant to several antibiotics. He was treated initially with Levaquin but had myalgias and then was treated with doxycycline which he finished 2 days ago. He denies improvementand is having swelling to his left calf and thigh. He has been having swelling to both lower extremities for many years and it has worsened over the last few months. He has not been compliant with compression. He has had increased pain especially in the left leg. He has clear yellow drainage and redness without odor or warmth. He is anti-coagulated on coumadin. He has been washing with Dial soap and witch ifrah. He had been using Collagen at times and using Calcium Alginate and covering with ABD pads during October. He was treated with 3M compression and Aquacel Ag. He was referred to the wound center for ongoing treatment. His ulcers have moderate to heavy drainage. He was in the hospital from 11/30/22 until 12/09/22 for treatment of cellulitis andedema. He underwent treatment with Vancomycin and IV lasix and compression. Discharged on 12/09/22. He returned to his assisted living apartment on Tuesday12/21/22. Wound culture from 12/07/24 was positive for Providencia stuartii, Vancomycin resistant E. Faecalis, Corynebacterium striatum and completed Augmentin orally. His edema is better this week and he is tolerating Circaid compression. 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 He continues to use his lymphedema pumps but continues to have painwith use of these pumps. 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 Progress of Wound: Mauricio is here today in follow up for chronic venous ulceration to the left lower extremity right lower extremity venous ulcer that is nearly circumferential. There continues to be mild improvement in both ulcers over the last week. He is more compliant with elevation but still is not compliant with compression pump frequency. he denies increased drainage, pain, or odor. Objective Data Objective Data Vital Signs: Vital Signs Temp Pulse Resp BP O2 Del Method 97.3 F L 61 18 145/79 H Room Air 03/29/25 11:21 03/29/25 11:21 03/29/25 11:21 03/29/25 11:21 03/29/25 11:21 Oxygen Delivery Method Room Air Physical Exam Const alert, oriented x3 and no apparent distress General Appearance: cooperative and comfortable HEENT normocephalic and head/scalp atraumatic Lymph Lymphatic: lymphedema moderate Resp normal respiratory effort Effort and Inspection: able to speak in complete sentences Cardio regular rate and regular rhythm Extremity Extremity Narrative: His ulcers are painful and the right lower leg remains more swollen than his left but there is good granulation tissue throughout and slough that is nearly completely removed post - debridement, edges of ulcers are beveled without rolled borders General Extremity: edema bilateral lower extremity Details: severe Skin General Skin Exam: venous stasis and dermatitis Wounds: wounds noted Wound Narrative: as in clinical panel, + devitalized tissue, there is increased depth, + granulation tissue bilateral ulcer with good granulation and moderate to heavy slough prior to debridement and minimal post debridement Psych mental status grossly normal, thought process normal, cooperative and affect normal Debridement Note Debridement Note Wound debrided: left medial LE ulcer Laterality: Left Type of Debridement: Excisional debridement Anesthesia Used: 5% Lidocaine Gel and Cetacaine Depth: Down to and including healthy tissue and in the subcutaneous layer Percentage of wound debrided: 100 Instrument Used: - (Misonix ultrasonic debridement) Tissue Removed: Yellow slough, devitalized tissue Severity: Fat Layer Exposed Amount of bleeding with debridement: Mild Bleeding Controlled with: Compression and gauze Patient tolerated procedure: Patient tolerated procedure well Post-Debridement Measurements and Additional Note: Post-Debridement Measurements/Treatment DEBBIE - Nurse 1 - General Ulcer Assessment Start: 03/15/25 11:57 Freq: Status: Active Protocol: KATET Activity Type Activity Date Activity User E-sign Co-sign Detail Recorded Client Recorded Date Recorded By Document 03/15/25 11:57 RB [id number] 03/15/25 12:01 RB Document 03/22/25 11:44 RB [id number] 03/22/25 11:51 RB Document 03/29/25 11:21 KW [id number] 03/29/25 11:34 KW 03/15/25 03/22/25 03/29/25 11:57 11:44 11:21 - Today's Visit Information Type of service Follow-up Visit Follow-up Visit Follow-up Visit (Physician/APPLICATIONS SPECIALIST (Physician/APPLICATIONS SPECIALIST (Physician/APPLICATIONS SPECIALIST ) ) ) Arrival Mode Ambulatory, Ambulatory Ambulatory, Walker Walker Transfer Assistance Manual None Patient Identification Verified (Name & Yes Yes Yes ) Patient Requires Transmission-Based No No Precautions Vital Signs Temperature (97.8 F-99.1 F) 96.2 F L 97.3 F L Temperature Source Temporal Temporal Pulse Rate (60-100) 59 L 61 Pulse Location Monitor Monitor Respiratory Rate (12-18) 18 18 Respiratory rate source Observation Observation Oxygen Delivery Method Room Air Blood Pressure (90/60-120/80) 154/82 H 145/79 H Blood Pressure Mean (mm Hg) 106 101 Source Monitor Monitor Position Sitting Semi-Fowlers Blood Pressure Location Left Arm Right Arm History Since Last Visit- (Skip if this is Patient's initial visit) Have you changed medications since your No No last visit? Any new allergies or adverse reactions No No Had a fall/change in ADL's that may No No increase risk of falls Signs or symptoms of abuse and/or No No neglect since last visit Have you been in the hospital since your No No last visit? Has dressing in place as prescribed Yes Yes Has compression in place as prescribed Yes Yes Has offloadiing in place as prescribed N/A N/A Experienced any changes in pain level or No No management Left Footwear Regular Shoe Regular Shoe Right Footwear Regular Shoe Regular Shoe Pain Scale: 0-10 Numeric Is Patient Pain Free? No Yes Yes ble -Description Aching -Intensity 6 -Duration (hours) Acute -Pain Behavior Withdrawal from Touch -Pain Aggravating Factors Exercise/ Activity, Debridement -Alleviating Factors/Interventions Medication -Effectiveness of Alleviating Factor/ Moderately Intervention effective - Nurse 1 - General Ulcer Measurement Start: 03/15/25 11:57 Freq: Status: Active Protocol: Activity Type Activity Date Activity User E-sign Co-sign Detail Recorded Client Recorded Date Recorded By Document 03/15/25 11:57 RB [id number] 03/15/25 12:01 RB Document 03/22/25 11:44 RB [id number] 03/22/25 11:51 RB Document 03/29/25 11:21 KW [id number] 03/29/25 11:34 KW 03/15/25 03/22/25 03/29/25 11:57 11:44 11:21 Wound Center Nurse 1 #24 Left Lateral Leg -Combined with other wound No No -Current Size (cm) - Length 2 1.5 -Current Size (cm) - Width 0.7 0.7 -Current Size (cm) - Depth 0.1 0.1 -Total Square Cm 1.4 1.05 -Photo Taken Yes -Tunneling No No -Undermining/Tunneling No No -Circular Undermining No No -Exudate Amt Large Large Medium -Exudate Type Serosanguineous Serosanguineous Serosanguineous -Wound Margin Distinct, Distinct, Distinct, Outline Outline Outline Attached Attached Attached -Granulation Amt Large (67-100%) Medium (34-66%) Large (67-100%) -Granulation Quality Lingle Lingle Red -Slough/Fibrin Yes Yes -Necrosis Amt Small (1-33%) Medium (34-66%) -Necrotic Tissue Type Adherent Slough Adherent Slough -Structure Exposed N/A N/A -Texture (Marie-wound Skin Appearance) Assessed, Assessed, Assessed Scarring Localized Edema -Moisture (Marie-wound Skin Appearance) Assessed Assessed Assessed -Color (Marie-wound Skin Appearance) Assessed Assessed Assessed, Hemosiderin Staining -Temperature (Marie-wound Skin No Abnormality No Abnormality No Abnormality Appearance) (Pt Warm) (Pt Warm) (Pt Warm) -Tenderness on Palpation (Marie-wound No No No Skin Appearance) -Ulcer Cleansing Wound Cleanser Wound Cleanser Soap and Water -Foul Odor after Cleansing No No No -Anesthetic Used 5% Lidocaine 5% Lidocaine 5% Lidocaine Gel Gel Gel #22 R Medial/Lateral leg -Combined with other wound No No -Current Size (cm) - Length 11 30.5 -Current Size (cm) - Width 29 8.5 -Current Size (cm) - Depth 0.2 0.2 -Total Square Cm 319 259.25 -Photo Taken Yes -Tunneling No No -Undermining/Tunneling No No -Circular Undermining No No -Exudate Amt Large Medium Medium -Exudate Type Serosanguineous Serosanguineous Serosanguineous -Wound Margin Distinct, Distinct, Distinct, Outline Outline Outline Attached Attached Attached -Granulation Amt Medium (34-66%) Medium (34-66%) Large (67-100%) -Granulation Quality Lingle Lingle Red -Slough/Fibrin Yes Yes -Necrosis Amt Small (1-33%) Medium (34-66%) -Necrotic Tissue Type Adherent Slough Adherent Slough -Structure Exposed N/A N/A -Texture (Marie-wound Skin Appearance) Assessed, Assessed, Assessed Scarring Localized Edema -Moisture (Marie-wound Skin Appearance) Assessed Assessed Assessed -Color (Marie-wound Skin Appearance) Assessed Assessed Assessed, Hemosiderin Staining -Temperature (Marie-wound Skin No Abnormality No Abnormality No Abnormality Appearance) (Pt Warm) (Pt Warm) (Pt Warm) -Tenderness on Palpation (Marie-wound No No No Skin Appearance) -Ulcer Cleansing Wound Cleanser Wound Cleanser Soap and Water -Foul Odor after Cleansing No No No -Anesthetic Used 5% Lidocaine 5% Lidocaine 5% Lidocaine Gel Gel Gel #18 Left medial LE cluster -Combined with other wound No No -Current Size (cm) - Length 8 8.5 -Current Size (cm) - Width 15 4.5 -Current Size (cm) - Depth 0.1 0.1 -Total Square Cm 120 38.25 -Photo Taken Yes -Tunneling No No -Undermining/Tunneling No No -Circular Undermining No No -Exudate Amt Large Large Medium -Exudate Type Serosanguineous Serosanguineous Serosanguineous -Wound Margin Distinct, Distinct, Distinct, Outline Outline Outline Attached Attached Attached -Granulation Amt Medium (34-66%) Medium (34-66%) Large (67-100%) -Granulation Quality Lingle Lingle Red -Slough/Fibrin Yes Yes -Necrosis Amt Medium (34-66%) Small (1-33%) -Necrotic Tissue Type Adherent Slough Adherent Slough -Structure Exposed N/A N/A -Texture (Marie-wound Skin Appearance) Assessed, Assessed, Assessed Localized Edema Localized Edema ,Scarring -Moisture (Marie-wound Skin Appearance) Assessed Assessed Assessed -Color (Marie-wound Skin Appearance) Assessed Assessed Assessed, Hemosiderin Staining -Temperature (Marie-wound Skin No Abnormality No Abnormality No Abnormality Appearance) (Pt Warm) (Pt Warm) (Pt Warm) -Tenderness on Palpation (Marie-wound No No No Skin Appearance) -Ulcer Cleansing Wound Cleanser Wound Cleanser Soap and Water -Foul Odor after Cleansing No No No -Anesthetic Used 5% Lidocaine 5% Lidocaine 5% Lidocaine Gel Gel Gel Lower Limb Edema Present Yes Yes Right Calf (cm) 47 46.5 Right Ankle (cm) 31 30 Left Calf (cm) 44.5 45.5 Left Ankle (cm) 30.2 30.8 WC - Nurse 2 - General Ulcer CM Notes Start: 03/15/25 11:57 Freq: Status: Active Protocol: Activity Type Activity Date Activity User E-sign Co-sign Detail Recorded Client Recorded Date Recorded By Document 03/15/25 12:47 [id number] 03/15/25 12:55 Document 03/22/25 12:26 [id number] 03/22/25 12:41 Document 03/29/25 12:01 [id number] 03/29/25 12:18 03/15/25 03/22/25 03/29/25 12:47 12:26 12:01 Wound Center Nurse 2 #24 Left Lateral Leg -Time 12:47 12:26 12:02 -Correct Patient Yes Yes Yes -Correct Side, Site, Position Yes Yes Yes -Correct Procedure Yes Yes Yes -Procedure Performed Yes Yes Yes -Type of Procedure Debridement Debridement Debridement -Clinical Debridement Subcutaneous Subcutaneous Subcutaneous -Tissue Removed Subcutaneous Subcutaneous Subcutaneous -Post Debridement (cm) - Length 1.8 1.6 1.5 -Post Debridement (cm) - Width 1.0 0.5 0.5 -Post Debridement (cm) - Depth 0.1 0.1 0.1 -Total Square (Post) (cm) 1.80 0.80 0.75 -Area of Debridement (cm) - Length 1.8 1.6 1.5 -Area of Debridement (cm) - Width 1.0 0.5 0.5 -Total Square (Area) (cm) 1.80 0.80 0.75 -Tunneling No No No -Undermining/Tunneling No No No -Circular Undermining No No No -Wound/Ulcer Outcome Not Healed Not Healed Not Healed -Ulcer Cleansing Rinsed/ Not Cleansed Rinsed/ Irrigated with Irrigated with Saline Saline -Foul Odor after Cleansing No No No -Bioengineered Tissue No No No -Bleeding Controlled with Pressure NA Pressure -Treatment Response Procedure Procedure Procedure Tolerated Well Tolerated Well Tolerated Well -Offloading No No No -Debridement - Subq, 1st 20sq cm No No No #22 R Medial/Lateral leg -Time 12:48 12:26 12:02 -Correct Patient Yes Yes Yes -Correct Side, Site, Position Yes Yes Yes -Correct Procedure Yes Yes Yes -Procedure Performed Yes Yes Yes -Type of Procedure Debridement Debridement Debridement -Clinical Debridement Subcutaneous Subcutaneous Subcutaneous -Tissue Removed Subcutaneous Subcutaneous Subcutaneous -Post Debridement (cm) - Length 11.0 10.0 10.2 -Post Debridement (cm) - Width 25.3 25.4 26.0 -Post Debridement (cm) - Depth 0.1 0.1 0.1 -Total Square (Post) (cm) 278.30 254.00 265.20 -Area of Debridement (cm) - Length 11.0 10.0 10.2 -Area of Debridement (cm) - Width 25.3 25.4 26.0 -Total Square (Area) (cm) 278.30 254.00 265.20 -Tunneling No No No -Undermining/Tunneling No No No -Circular Undermining No No No -Wound/Ulcer Outcome Not Healed Not Healed Not Healed -Ulcer Cleansing Rinsed/ Rinsed/ Rinsed/ Irrigated with Irrigated with Irrigated with Saline Saline Saline -Foul Odor after Cleansing No No No -Bioengineered Tissue No No No -Bleeding Controlled with Pressure Pressure Pressure -Treatment Response Procedure Procedure Procedure Tolerated Well Tolerated Well Tolerated Well -Offloading No No No -Debridement - Subq, 1st 20sq cm No No No #18 Left medial LE cluster -Time 12:48 12:27 12:03 -Correct Patient Yes Yes Yes -Correct Side, Site, Position Yes Yes Yes -Correct Procedure Yes Yes Yes -Procedure Performed Yes Yes Yes -Type of Procedure Debridement Debridement Debridement -Clinical Debridement Subcutaneous Subcutaneous Subcutaneous -Tissue Removed Subcutaneous Subcutaneous Subcutaneous -Post Debridement (cm) - Length 8.2 8.3 8.3 -Post Debridement (cm) - Width 14.8 13.0 13.3 -Post Debridement (cm) - Depth 0.1 0.1 0.1 -Total Square (Post) (cm) 121.36 107.90 110.39 -Area of Debridement (cm) - Length 8.2 8.3 8.3 -Area of Debridement (cm) - Width 14.8 13.0 13.3 -Total Square (Area) (cm) 121.36 107.90 110.39 -Tunneling No No No -Undermining/Tunneling No No No -Circular Undermining No No No -Wound/Ulcer Outcome Not Healed Not Healed Not Healed -Ulcer Cleansing Rinsed/ Rinsed/ Rinsed/ Irrigated with Irrigated with Irrigated with Saline Saline Saline -Foul Odor after Cleansing No No No -Bioengineered Tissue No No No -Bleeding Controlled with Pressure Pressure Pressure -Treatment Response Procedure Procedure Procedure Tolerated Well Tolerated Well Tolerated Well -Offloading No No No -Debridement - Subq, 1st 20sq cm Yes Yes Yes -Debridement, SubQ, ea addt'l 20sq cm 19 19 18 or part thereof Pain Scale: 0-10 Numeric Is Patient Pain Free? Yes Yes Yes - Nurse 3 - General Ulcer D/C NN Start: 03/15/25 11:57 Freq: Status: Active Protocol: Activity Type Activity Date Activity User E-sign Co-sign Detail Recorded Client Recorded Date Recorded By Document 03/15/25 13:08 RB [id number] 03/15/25 13:10 RB Document 03/22/25 12:44 KW [id number] 03/22/25 12:45 KW Edit Result 03/22/25 12:44 KW (1) [id number] 03/22/25 12:58 RB Document 03/29/25 12:53 RB [id number] 03/29/25 12:55 RB (1) #24 Left Lateral Leg - Primary Dressing Applied => Optilok 5x5 1/2 - Optilok 5x5 1/2 => 2 03/15/25 03/22/25 03/29/25 13:08 12:44 12:53 Wound Care Center Nurse 3 #24 Left Lateral Leg -Ulcer Cleansing Rinsed/ Irrigated with Saline -Primary Dressing Applied Optilok 5x5 1/2 Optilok 5x5 1/2 ,Optilok 6.5x10 -Other Dressing ABD -Primary Dressing Covered/Secured with Dry Gauze,Dry Dry Gauze & Dry Gauze & Gauze & Roll Roll Gauze, Roll Gauze, Gauze,Secured Secured with Secured with with Tape Tape Tape -Optilok 5x5 1/2 2 1 -Optilok 6.5x10 2 #22 R Medial/Lateral leg -Other Dressing ABD -Primary Dressing Covered/Secured with Dry Gauze,Dry Dry Gauze & Dry Gauze & Gauze & Roll Roll Gauze, Roll Gauze, Gauze,Secured Secured with Secured with with Tape Tape Tape #18 Left medial LE cluster -Other Dressing ABD -Primary Dressing Covered/Secured with Dry Gauze,Dry Dry Gauze & Dry Gauze & Gauze & Roll Roll Gauze, Roll Gauze, Gauze,Secured Secured with Secured with with Tape Tape Tape BLE -Stockings Yes: circaid Yes: PT OWN bilat CIRCAIDS -Other pt circaids Treatment Response Procedure Procedure Tolerated Well Tolerated Well Pain Scale: 0-10 Numeric Is Patient Pain Free? Yes Yes Yes WC - Visit Discharge Discharge Condition Stable Stable Stable Ambulatory Status Ambulatory, Ambulatory, Ambulatory, Walker Walker Walker Transportation Private Auto Private Auto [facility] transport Medication Reconcilliation completed & No No No provided to patient/care provider Clinical Summary of Care Provided Yes Yes Yes Additional Wound Wound debrided: left lateral leg Laterality: Left Type of Debridement: Excisional debridement Anesthesia Used: 5% Lidocaine Gel and Cetacaine Depth: Down to and including healthy tissue and in the subcutaneous layer Percentage of wound debrided: 100 Instrument Used: - (Misonix ultrasonic debridement) Tissue Removed: Yellow slough, devitalized tissue Severity: Fat Layer Exposed Amount of bleeding with debridement: Mild Bleeding Controlled with: Compression and gauze Patient tolerated procedure: Patient tolerated procedure well Additional Wound Wound debrided: right medial leg Laterality: Right Type of Debridement: Excisional debridement Anesthesia Used: 5% Lidocaine Gel and Cetacaine Depth: Down to and including healthy tissue and in the subcutaneous layer Percentage of wound debrided: 100 Instrument Used: - (Misonix ultrasonic debridement) Tissue Removed: Yellow slough, devitalized tissue Severity: Fat Layer Exposed Amount of bleeding with debridement: Mild Bleeding Controlled with: Compression and gauze Patient tolerated procedure: Patient tolerated procedure well Assessment/Plan Assessment/Plan (1) Lymphedema: CODE(S): I89.0 - Lymphedema, not elsewhere classified (2) Hypertension: CODE(S): I10 - Essential (primary) hypertension QUALIFIERS: Hypertension type: primary hypertension Qualified Code(s): I10 - Essential (primary) hypertension (3) Hyperlipidemia: CODE(S): E78.5 - Hyperlipidemia, unspecified QUALIFIERS: Hyperlipidemia type: mixed hyperlipidemia Qualified Code(s): E78.2 - Mixed hyperlipidemia (4) History of DVT (deep vein thrombosis): CODE(S): Z86.718 - Personal history of other venous thrombosis and embolism (5) Venous insufficiency (chronic) (peripheral): CODE(S): I87.2 - Venous insufficiency (chronic) (peripheral) (6) Venous ulcer of left lower extremity with varicose veins: CODE(S): I83.029 - Varicose veins of left lower extremity with ulcer of unspecified site (7) Edema: CODE(S): R60.9 - Edema, unspecified QUALIFIERS: Edema type: unspecified Qualified Code(s): R60.9 - Edema, unspecified (8) 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 At home wound-care instructions: Will use Circaid compression garments with super absorber and kerlix to right LE and left LE changed every other day. Due to his chronic lymphedema and being unable to don traditional compression stockings and the presence of venous ulcers on his LE b/l, it is medically necessary for him to have Circaid compression garments. He is using Circaid compression to both legs. I suspect he is not very compliant with his lymphedemapumps and not getting adequate compression with tubigrips. Due to the delayed progress in wound healing of his venous ulcers, we discussed applying for advanced wound healing product for healing his ulcer. Due to the size of his ulcer, Theraskin application approval was requested from his insurance as it is medically necessary for salvaging his limb and healing his ulcer. He underwent 2 applications of Theraskin to this ulcer. Since applicationof Theraskin he had much improvement in epithelialization of his ulcer even though the overall size is not significantly changed there was progress. He is using Circaid compression wraps. Off-loading: The patient was instructed to avoid pressure and friction on the affected areas. Reposition every 2 hours at minimum. Avoid prolonged standing and/or dangling of legs. When seated, feet should be elevated at chest level. Frequent ambulation is encouraged. Encouraged lymphedema pump use. Diet: Patient encouraged to increase protein intake while taking caution to avoid high carbohydrate and/or sugar intake. Labs/cultures/imaging: Wound culture showed Pseudomonas, Escherichia hermannii, Raoultella planticola, Vancomycin Resist. E. faecalis, Alcaligenes faecalis ssp faeca, Staphylococcus cohnii urealyti and anaerobic bacteria on 06/15/24 and he completed on Levofloxacin and Augmentin. Wound culture taken today on right lateral ulcer which showed Raoultella planticola, Staph hemolyticus, staph epidermidis and morganella morganii but no anaeroobic bacteria, Levofloxacin anddoxycyline were prescribed based on culture results. Labs ordered 10/19/2024. Vitamin D was low A1C 5.4% Wound culture from 12/07/24 was positive for Providencia stuartii, Vancomycin resistant E. Faecalis, Corynebacterium striatum and completed Augmentin orally. Follow-up: Return in 1 week for wound care follow up and have dressing changed by home health Mondays. Return sooner or report to the emergency room should symptoms worsen, or new symptoms arise. Note: [employer] speech recognition hair tinter software was used to create portions of this document. Sound-alike and misspelled words, as well as other hair tinter errors may be contained in the documentation. 03/29/25 [id number] <Electronically signed by Patricia Garcia DO> Cosigner Signature (if applicable): CC: ~ Signed [facility] Work Phone: [phone] Progress note [facility] [address] [place] [address] Progress Note - Wound Care 03/29/25 1359 MR#: [id number] Acct: [id number] Name: ESTEBAN URBINA Rep #:[id number] : 1955 69 From: Patricia Garcia DO PCP: Dr. Patricia Garcia, DO Status:REG RCR Location: History of Present Illness Date of Service: 03/29/25 Chief Complaint: venous ulcers of left lower extremity History of Wound: Mauricio is a 69 yo gentleman who is here today for evaluation of ulcers to to his bilateral lower legs. [facility]. The left LE ulcer started after he developed increased swelling and blisters of left leg in Octoberand the right leg started sometime at the end of October. He was seen at PCP's office a culture was taken and it was resistant to several antibiotics. He wastreated initially with Levaquin but had myalgias and then was treated with doxycycline which he finished 2 days ago. He denies improvementand is having swelling to his left calf and thigh. He has been having swelling to both lower extremities for many years and it has worsened over the last few chirag hs. He has not been compliant with compression. He has had increased pain especially in the left leg. He has clear yellow drainage and redness without odor or warmth. He is anti- coagulated on coumadin. He has been washing with Dial soap and witch ifrah. He had been using Collagen at times and using Calcium Alginate and covering with ABD pads during October. He was treated with 3M compression and Aquacel Ag. He was referred to the wound center for ongoing treatment. His ulcers have moderate to heavy drainage. He was in the hospital from 11/30/22 until 12/09/22 for treatment of cellulitis andedema. He underwenttreatment with Vancomycin and IV lasix and compression. Discharged on 12/09/22. He returned to his assisted living apartment on Tuesday12/21/22. Wound culture from 12/07/24 was positive for Providencia stuartii, Vancomycin resistant E. Faecalis,Corynebacterium striatum and completed Augmentin orally. His edema is better this week and he is tolerating Circaid compression. 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 He continues to use his lymphedema pumps but continues to have painwith use of these pumps. 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 Progress of Wound: Mauricio is here today in follow up for chronic venous ulceration to the left lower extremity right lower extremity venous ulcer that is nearly circumferential. There continues to be mild improvement in both ulcers over the last week. He is more compliant with elevation but still is not compliant with compression pump frequency. he denies increased drainage, pain, or odor. Objective Data Objective Data Vital Signs: Vital Signs Temp Pulse Resp BP O2 Del Method 97.3 F L 61 18 145/79 H Room Air 03/29/25 11:21 03/29/25 11:21 03/29/25 11:21 03/29/25 11:21 03/29/25 11:21 Oxygen Delivery Method Room Air Physical Exam Const alert, oriented x3 and no apparent distress General Appearance: cooperative and comfortable HEENT normocephalic and head/scalp atraumatic Lymph Lymphatic: lymphedema moderate Resp normal respiratory effort Effort and Inspection: able to speak in complete sentences Cardio regular rate and regular rhythm Extremity Extremity Narrative: His ulcers are painful and the right lower leg remains more swollen than his left but there is goodgranulation tissue throughout and slough that is nearly completely removed post - debridement, edges of ulcers are beveled without rolled borders General Extremity: edema bilateral lower extremity Details: severe Skin General Skin Exam: venous stasis and dermatitis Wounds: wounds noted Wound Narrative: as in clinical panel, + devitalized tissue, there is increased depth, + granulation tissue bilateral ulcer with good granulation and moderate to heavy slough prior to debridement and minimalpost debridement Psych mental status grossly normal, thought process normal, cooperative and affect normal Debridement Note Debridement Note Wound debrided: left medial LE ulcer Laterality: Left Type of Debridement: Excisional debridement Anesthesia Used: 5% Lidocaine Gel and Cetacaine Depth: Down to and including healthy tissue and in the subcutaneous layer Percentage of wound debrided: 100 Instrument Used: - (Misonix ultrasonic debridement) Tissue Removed: Yellow slough, devitalized tissue Severity: Fat Layer Exposed Amount of bleeding with debridement: Mild Bleeding Controlled with: Compression and gauze Patient tolerated procedure: Patient tolerated procedure well Post-Debridement Measurements and Additional Note: Post-Debridement Measurements/Treatment - Nurse 1 - General Ulcer Assessment Start: 03/15/25 11:57 Freq: Status: Active Protocol: ONDINA Activity Type Activity Date Activity User E-sign Co-sign Detail Recorded Client Recorded Date Recorded By Document 03/15/25 11:57 RB [id number] 03/15/25 12:01 RB Document 03/22/25 11:44 RB [id number] 03/22/25 11:51 RB Document 03/29/25 11:21 KW [id number] 03/29/25 11:34 KW 03/15/25 03/22/25 03/29/25 11:57 11:44 11:21 - Today's Visit Information Type of service Follow-up Visit Follow-up Visit Follow-up Visit (Physician/APPLICATIONS SPECIALIST (Physician/APPLICATIONS SPECIALIST (Physician/APPLICATIONS SPECIALIST ) ) ) Arrival Mode Ambulatory, Ambulatory Ambulatory, Walker Walker Transfer Assistance Manual None Patient Identification Verified (Name & Yes Yes Yes ) Patient Requires Transmission-Based No No Precautions Vital Signs Temperature (97.8 F-99.1 F) 96.2 F L 97.3 F L Temperature Source Temporal Temporal Pulse Rate (60-100) 59 L 61 Pulse Location Monitor Monitor Respiratory Rate (12-18) 18 18 Respiratory rate source Observation Observation Oxygen Delivery Method Room Air Blood Pressure (90/60-120/80) 154/82 H 145/79 H Blood Pressure Mean (mm Hg) 106 101 Source Monitor Monitor Position Sitting Semi-Fowlers Blood Pressure Location Left Arm Right Arm History Since Last Visit- (Skip if this is Patient's initial visit) Have you changed medications since your No No last visit? Any new allergies or adverse reactions No No Had a fall/change in ADL's that may No No increase risk of falls Signs or symptoms of abuse and/or No No neglect since last visit Have you been in the hospital since your No No last visit? Has dressing in place as prescribed Yes Yes Has compression in place as prescribed Yes Yes Has offloadiing in place as prescribed N/A N/A Experienced any changes in pain level or No No management Left Footwear Regular Shoe Regular Shoe Right Footwear Regular Shoe Regular Shoe Pain Scale: 0-10 Numeric Is Patient Pain Free? No Yes Yes ble -Description Aching -Intensity 6 -Duration (hours) Acute -Pain Behavior Withdrawal from Touch -Pain Aggravating Factors Exercise/ Activity, Debridement -Alleviating Factors/Interventions Medication -Effectiveness of Alleviating Factor/ Moderately Intervention effective WC - Nurse 1 - General Ulcer Measurement Start: 03/15/25 11:57 Freq: Status: Active Protocol: Activity Type Activity Date Activity User E-sign Co-sign Detail Recorded Client Recorded Date Recorded By Document 03/15/25 11:57 RB [id number] 03/15/25 12:01 RB Document 03/22/25 11:44 RB [id number] 03/22/25 11:51 RB Document 03/29/25 11:21 KW [id number] 03/29/25 11:34 KW 03/15/25 03/22/25 03/29/25 11:57 11:44 11:21 Wound Center Nurse 1 #24 Left Lateral Leg -Combined with other wound No No -Current Size (cm) - Length 2 1.5 -Current Size (cm) - Width 0.7 0.7 -Current Size (cm) - Depth 0.1 0.1 -Total Square Cm 1.4 1.05 -Photo Taken Yes -Tunneling No No -Undermining/Tunneling No No -Circular Undermining No No -Exudate Amt Large Large Medium -Exudate Type Serosanguineous Serosanguineous Serosanguineous -Wound Margin Distinct, Distinct, Distinct, Outline Outline Outline Attached Attached Attached -Granulation Amt Large (67-100%) Medium (34-66%) Large (67-100%) -Granulation Quality Lingle Lingle Red -Slough/Fibrin Yes Yes -Necrosis Amt Small (1-33%) Medium (34-66%) -Necrotic Tissue Type Adherent Slough Adherent Slough -Structure Exposed N/A N/A -Texture (Marie-wound Skin Appearance) Assessed, Assessed, Assessed Scarring Localized Edema -Moisture (Marie-wound Skin Appearance) Assessed Assessed Assessed -Color (Marie-wound Skin Appearance) Assessed Assessed Assessed, Hemosiderin Staining -Temperature (Marie-wound Skin No Abnormality No Abnormality No Abnormality Appearance) (Pt Warm) (Pt Warm) (Pt Warm) -Tenderness on Palpation (Marie-wound No No No Skin Appearance) -Ulcer Cleansing Wound Cleanser Wound Cleanser Soap and Water -Foul Odor after Cleansing No No No -Anesthetic Used 5% Lidocaine 5% Lidocaine 5% Lidocaine Gel Gel Gel #22 R Medial/Lateral leg -Combined with other wound No No -Current Size (cm) - Length 11 30.5 -Current Size (cm) - Width 29 8.5 -Current Size (cm) - Depth 0.2 0.2 -Total Square Cm 319 259.25 -Photo Taken Yes -Tunneling No No -Undermining/Tunneling No No -Circular Undermining No No -Exudate Amt Large Medium Medium -Exudate Type Serosanguineous Serosanguineous Serosanguineous -Wound Margin Distinct, Distinct, Distinct, Outline Outline Outline Attached Attached Attached -Granulation Amt Medium (34-66%) Medium (34-66%) Large (67-100%) -Granulation Quality Lingle Lingle Red -Slough/Fibrin Yes Yes -Necrosis Amt Small (1-33%) Medium (34-66%) -Necrotic Tissue Type Adherent Slough Adherent Slough -Structure Exposed N/A N/A -Texture (Marie-wound Skin Appearance) Assessed, Assessed, Assessed Scarring Localized Edema -Moisture (Marie-wound Skin Appearance) Assessed Assessed Assessed -Color (Marie-wound Skin Appearance) Assessed Assessed Assessed, Hemosiderin Staining -Temperature (Marie-wound Skin No Abnormality No Abnormality No Abnormality Appearance) (Pt Warm) (Pt Warm) (Pt Warm) -Tenderness on Palpation (Marie-wound No No No Skin Appearance) -Ulcer Cleansing Wound Cleanser Wound Cleanser Soap and Water -Foul Odor after Cleansing No No No -Anesthetic Used 5% Lidocaine 5% Lidocaine 5% Lidocaine Gel Gel Gel #18 Left medial LE cluster -Combined with other wound No No -Current Size (cm) - Length 8 8.5 -Current Size (cm) - Width 15 4.5 -Current Size (cm) - Depth 0.1 0.1 -Total Square Cm 120 38.25 -Photo Taken Yes -Tunneling No No -Undermining/Tunneling No No -Circular Undermining No No -Exudate Amt Large Large Medium -Exudate Type Serosanguineous Serosanguineous Serosanguineous -Wound Margin Distinct, Distinct, Distinct, Outline Outline Outline Attached Attached Attached -Granulation Amt Medium (34-66%) Medium (34-66%) Large (67-100%) -Granulation Quality Lingle Lingle Red -Slough/Fibrin Yes Yes -Necrosis Amt Medium (34-66%) Small (1-33%) -Necrotic Tissue Type Adherent Slough Adherent Slough -Structure Exposed N/A N/A -Texture (Marie-wound Skin Appearance) Assessed, Assessed, Assessed Localized Edema Localized Edema ,Scarring -Moisture (Marie-wound Skin Appearance) Assessed Assessed Assessed -Color (Marie-wound Skin Appearance) Assessed Assessed Assessed, Hemosiderin Staining -Temperature (Marie-wound Skin No Abnormality No Abnormality No Abnormality Appearance) (Pt Warm) (Pt Warm) (Pt Warm) -Tenderness on Palpation (Marie-wound No No No Skin Appearance) -Ulcer Cleansing Wound Cleanser Wound Cleanser Soap and Water -Foul Odor after Cleansing No No No -Anesthetic Used 5% Lidocaine 5% Lidocaine 5% Lidocaine Gel Gel Gel Lower Limb Edema Present Yes Yes Right Calf (cm) 47 46.5 Right Ankle (cm) 31 30 Left Calf (cm) 44.5 45.5 Left Ankle (cm) 30.2 30.8 WC - Nurse 2 - General Ulcer CM Notes Start: 03/15/25 11:57 Freq: Status: Active Protocol: Activity Type Activity Date Activity User E-sign Co-sign Detail Recorded Client Recorded Date Recorded By Document 03/15/25 12:47 [id number] 03/15/25 12:55 Document 03/22/25 12:26 [id number] 03/22/25 12:41 Document 03/29/25 12:01 [id number] 03/29/25 12:18 03/15/25 03/22/25 03/29/25 12:47 12:26 12:01 Wound Center Nurse 2 #24 Left Lateral Leg -Time 12:47 12:26 12:02 -Correct Patient Yes Yes Yes -Correct Side, Site, Position Yes Yes Yes -Correct Procedure Yes Yes Yes -Procedure Performed Yes Yes Yes -Type of Procedure Debridement Debridement Debridement -Clinical Debridement Subcutaneous Subcutaneous Subcutaneous -Tissue Removed Subcutaneous Subcutaneous Subcutaneous -Post Debridement (cm) - Length 1.8 1.6 1.5 -Post Debridement (cm) - Width 1.0 0.5 0.5 -Post Debridement (cm) - Depth 0.1 0.1 0.1 -Total Square (Post) (cm) 1.80 0.80 0.75 -Area of Debridement (cm) - Length 1.8 1.6 1.5 -Area of Debridement (cm) - Width 1.0 0.5 0.5 -Total Square (Area) (cm) 1.80 0.80 0.75 -Tunneling No No No -Undermining/Tunneling No No No -Circular Undermining No No No -Wound/Ulcer Outcome Not Healed Not Healed Not Healed -Ulcer Cleansing Rinsed/ Not Cleansed Rinsed/ Irrigated with Irrigated with Saline Saline -Foul Odor after Cleansing No No No -Bioengineered Tissue No No No -Bleeding Controlled with Pressure NA Pressure -Treatment Response Procedure Procedure Procedure Tolerated Well Tolerated Well Tolerated Well -Offloading No No No -Debridement - Subq, 1st 20sq cm No No No #22 R Medial/Lateral leg -Time 12:48 12:26 12:02 -Correct Patient Yes Yes Yes -Correct Side, Site, Position Yes Yes Yes -Correct Procedure Yes Yes Yes -Procedure Performed Yes Yes Yes -Type of Procedure Debridement Debridement Debridement -Clinical Debridement Subcutaneous Subcutaneous Subcutaneous -Tissue Removed Subcutaneous Subcutaneous Subcutaneous -Post Debridement (cm) - Length 11.0 10.0 10.2 -Post Debridement (cm) - Width 25.3 25.4 26.0 -Post Debridement (cm) - Depth 0.1 0.1 0.1 -Total Square (Post) (cm) 278.30 254.00 265.20 -Area of Debridement (cm) - Length 11.0 10.0 10.2 -Area of Debridement (cm) - Width 25.3 25.4 26.0 -Total Square (Area) (cm) 278.30 254.00 265.20 -Tunneling No No No -Undermining/Tunneling No No No -Circular Undermining No No No -Wound/Ulcer Outcome Not Healed Not Healed Not Healed -Ulcer Cleansing Rinsed/ Rinsed/ Rinsed/ Irrigated with Irrigated with Irrigated with Saline Saline Saline -Foul Odor after Cleansing No No No -Bioengineered Tissue No No No -Bleeding Controlled with Pressure Pressure Pressure -Treatment Response Procedure Procedure Procedure Tolerated Well Tolerated Well Tolerated Well -Offloading No No No -Debridement - Subq, 1st 20sq cm No No No #18 Left medial LE cluster -Time 12:48 12:27 12:03 -Correct Patient Yes Yes Yes -Correct Side, Site, Position Yes Yes Yes -Correct Procedure Yes Yes Yes -Procedure Performed Yes Yes Yes -Type of Procedure Debridement Debridement Debridement -Clinical Debridement Subcutaneous Subcutaneous Subcutaneous -Tissue Removed Subcutaneous Subcutaneous Subcutaneous -Post Debridement (cm) - Length 8.2 8.3 8.3 -Post Debridement (cm) - Width 14.8 13.0 13.3 -Post Debridement (cm) - Depth 0.1 0.1 0.1 -Total Square (Post) (cm) 121.36 107.90 110.39 -Area of Debridement (cm) - Length 8.2 8.3 8.3 -Area of Debridement (cm) - Width 14.8 13.0 13.3 -Total Square (Area) (cm) 121.36 107.90 110.39 -Tunneling No No No -Undermining/Tunneling No No No -Circular Undermining No No No -Wound/Ulcer Outcome Not Healed Not Healed Not Healed -Ulcer Cleansing Rinsed/ Rinsed/ Rinsed/ Irrigated with Irrigated with Irrigated with Saline Saline Saline -Foul Odor after Cleansing No No No -Bioengineered Tissue No No No -Bleeding Controlled with Pressure Pressure Pressure -Treatment Response Procedure Procedure Procedure Tolerated Well Tolerated Well Tolerated Well -Offloading No No No -Debridement - Subq, 1st 20sq cm Yes Yes Yes -Debridement, SubQ, ea addt'l 20sq cm 19 19 18 or part thereof Pain Scale: 0-10 Numeric Is Patient Pain Free? Yes Yes Yes WC - Nurse 3 - General Ulcer D/C NN Start: 03/15/25 11:57 Freq: Status: Active Protocol: Activity Type Activity Date Activity User E-sign Co-sign Detail Recorded Client Recorded Date Recorded By Document 03/15/25 13:08 RB [id number] 03/15/25 13:10 RB Document 03/22/25 12:44 KW [id number] 03/22/25 12:45 KW Edit Result 03/22/25 12:44 KW (1) [id number] 03/22/25 12:58 RB Document 03/29/25 12:53 RB [id number] 03/29/25 12:55 RB (1) #24 Left Lateral Leg - Primary Dressing Applied => Optilok 5x5 1/2 - Optilok 5x5 1/2 => 2 03/15/25 03/22/25 03/29/25 13:08 12:44 12:53 Wound Care Center Nurse 3 #24 Left Lateral Leg -Ulcer Cleansing Rinsed/ Irrigated with Saline -Primary Dressing Applied Optilok 5x5 1/2 Optilok 5x5 1/2 ,Optilok 6.5x10 -Other Dressing ABD -Primary Dressing Covered/Secured with Dry Gauze,Dry Dry Gauze & Dry Gauze & Gauze & Roll Roll Gauze, Roll Gauze, Gauze,Secured Secured with Secured with with Tape Tape Tape -Optilok 5x5 1/2 2 1 -Optilok 6.5x10 2 #22 R Medial/Lateral leg -Other Dressing ABD -Primary Dressing Covered/Secured with Dry Gauze,Dry Dry Gauze & Dry Gauze & Gauze & Roll Roll Gauze, Roll Gauze, Gauze,Secured Secured with Secured with with Tape Tape Tape #18 Left medial LE cluster -Other Dressing ABD -Primary Dressing Covered/Secured with Dry Gauze,Dry Dry Gauze & Dry Gauze & Gauze & Roll Roll Gauze, Roll Gauze, Gauze,Secured Secured with Secured with with Tape Tape Tape BLE -Stockings Yes: circaid Yes: PT OWN bilat CIRCAIDS -Other pt circaids Treatment Response Procedure Procedure Tolerated Well Tolerated Well Pain Scale: 0-10 Numeric Is Patient Pain Free? Yes Yes Yes WC - Visit Discharge Discharge Condition Stable Stable Stable Ambulatory Status Ambulatory, Ambulatory, Ambulatory, Walker Walker Walker Transportation Private Auto Private Auto [facility] transport Medication Reconcilliation completed & No No No provided to patient/care provider Clinical Summary of Care Provided Yes Yes Yes Additional Wound Wound debrided: left lateral leg Laterality: Left Type of Debridement: Excisional debridement Anesthesia Used: 5% Lidocaine Gel and Cetacaine Depth: Down to and including healthy tissue and in the subcutaneous layer Percentage of wound debrided: 100 Instrument Used: - (Misonix ultrasonic debridement) Tissue Removed: Yellow slough, devitalized tissue Severity: Fat Layer Exposed Amount of bleeding with debridement: Mild Bleeding Controlled with: Compression and gauze Patient tolerated procedure: Patient tolerated procedure well Additional Wound Wound debrided: right medial leg Laterality: Right Type of Debridement: Excisional debridement Anesthesia Used: 5% Lidocaine Gel and Cetacaine Depth: Down to and including healthy tissue and in the subcutaneous layer Percentage of wound debrided: 100 Instrument Used: - (Misonix ultrasonic debridement) Tissue Removed: Yellow slough, devitalized tissue Severity: Fat Layer Exposed Amount of bleeding with debridement: Mild Bleeding Controlled with: Compression and gauze Patient tolerated procedure: Patient tolerated procedure well Assessment/Plan Assessment/Plan (1) Lymphedema: CODE(S): I89.0 - Lymphedema, not elsewhere classified (2) Hypertension: CODE(S): I10 - Essential (primary) hypertension QUALIFIERS: Hypertension type: primary hypertension Qualified Code(s): I10 - Essential (primary) hypertension (3) Hyperlipidemia: CODE(S): E78.5 - Hyperlipidemia, unspecified QUALIFIERS: Hyperlipidemia type: mixed hyperlipidemia Qualified Code(s): E78.2 - Mixed hyperlipidemia (4) History of DVT (deep vein thrombosis): CODE(S): Z86.718 - Personal history of other venous thrombosis and embolism (5) Venous insufficiency (chronic) (peripheral): CODE(S): I87.2 - Venous insufficiency (chronic) (peripheral) (6) Venous ulcer of left lower extremity with varicose veins: CODE(S): I83.029 - Varicose veins of left lower extremity with ulcer of unspecified site (7) Edema: CODE(S): R60.9 - Edema, unspecified QUALIFIERS: Edema type: unspecified Qualified Code(s): R60.9 - Edema, unspecified (8) 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 At home wound-care instructions: Will use Circaid compression garments with super absorber and kerlix to right LE and left LE changed every other day. Due to his chronic lymphedema and being unable to don traditional compression stockings and the presence of venous ulcers on his LE b/l, it is medically necessary for him to have Circaid compression garments. He is using Circaid compression to both legs. I suspect he is not very compliant with his l ymphedemapumps and not getting adequate compression with tubigrips. Due to the delayed progress in wound healing of his venous ulcers, we discussed applying for advanced wound healing product for healing his ulcer. Due to the size of his ulcer, Theraskin application approval was requested from his insurance as it is medically necessary for salvaging his limb and healing his ulcer. He underwent 2 applications of Theraskin to this ulcer. Since applicationof Theraskin he had much improvement in epithelialization of his ulcer even though the overall size is not significantly changed there was progress. He is using Circaid compression wraps. Off-loading: The patient was instructed to avoid pressure and friction on the affected areas. Reposition every 2 hours at minimum. Avoid prolonged standing and/or dangling of legs. When seated, feet should be elevated at chest level. Frequent ambulation is encouraged. Encouraged lymphedema pump use. Diet: Patient encouraged to increase protein intake while taking caution to avoid high carbohydrateand/or sugar intake. Labs/cultures/imaging: Wound culture showed Pseudomonas, Escherichia hermannii, Raoultella planticola, Vancomycin Resist. E. faecalis, Alcaligenes faecalis ssp faeca, Staphylococcus cohnii urealyti and anaerobic bacteria on 06/15/24 and he completed on Levofloxacin and Augmentin. Wound culture taken today on right lateral ulcer which showed Raoultella planticola, Staph hemolyticus, staph epidermidis and morganella morganii but no anaeroobic bacteria, Levofloxacin anddoxycyline were prescribed based on culture results. Labs ordered 10/19/2024. Vitamin D was low A1C 5.4% Wound culture from 12/07/24 was positive for Providencia stuartii, Vancomycin resistant E. Faecalis, Corynebacterium striatum and completed Augmentinorally. Follow-up: Return in 1 week for wound care follow up and have dressing changed by home health Mondays. Return sooner or report to the emergency room should symptoms worsen, or new symptoms arise. Note: [employer] speech recognition hair tinter software was used to create portions of this document. Sound-alike and misspelled words, as well as other hair tinter errors may be contained in the documentation. 03/29/25 135 Cosigner Signature (if applicable): CC: ~ Signed [facility]06-13-2025 Progress note Author Patricia Garcia [facility] Note Date/Time March 22, 2025 1:41 pm [facility] [address] [place] [address] Progress Note - Wound Care 03/22/25 1339 MR#: [id number] Acct: [id number] Name: ESTEBAN URBINA Rep #:[id number] : 1955 69 From: Patricia Garcia DO PCP: Dr. Patricia Garcia, DO Status:REG RCR Location: History of Present Illness Date of Service: 03/22/25 Chief Complaint: venous ulcers of left lower extremity History of Wound: Mauricio is a 69 yo gentleman who is here today for evaluation of ulcers to to his bilateral lower legs. [facility]. The left LE ulcer started after he developed increased swelling and blisters of left leg in October and the right leg started sometime at the end of October. He was seen at PCP's office a culture was taken and it was resistant to several antibiotics. He was treated initially with Levaquin but had myalgias and then was treated with doxycycline which he finished 2 days ago. He denies improvementand is having swelling to his left calf and thigh. He has been having swelling to both lower extremities for many years and it has worsened over the last few months. He has not been compliant with compression. He has had increased pain especially in the left leg. He has clear yellow drainage and redness without odor or warmth. He is anti-coagulated on coumadin. He has been washing with Dial soap and witch ifrah. He had been using Collagen at times and using Calcium Alginate and covering with ABD pads during October. He was treated with 3M compression and Aquacel Ag. He was referred to the wound center for ongoing treatment. His ulcers have moderate to heavy drainage. He was in the hospital from 11/30/22 until 12/09/22 for treatment of cellulitis andedema. He underwent treatment with Vancomycin and IV lasix and compression. Discharged on 12/09/22. He returned to his assisted living apartment on Tuesday12/21/22. Subjective Subjective Mauricio is a 69-year-old male with longstanding history of chronic venous ulcerationto the left lower extremity and now a right lower extremity venous ulcer that isnearly circumferential. There continues to be mild improvement in both ulcers over the last week. He is more compliant with elevation but still is not compliant with compression pump frequency. Wound culture from 12/07/24 was positive for Providencia stuartii, Vancomycin resistant E. Faecalis, Corynebacterium striatum and completed Augmentin orally. His edema is better this week and he is tolerating Circaid compression. 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 He continues to use his lymphedema pumps but continues to have painwith use of these pumps. 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 Objective Data Objective Data Vital Signs: Vital Signs Temp Pulse Resp BP 96.2 F L 59 L 18 154/82 H 03/22/25 11:44 03/22/25 11:44 03/22/25 11:44 03/22/25 11:44 Physical Exam Const alert, oriented x3 and no apparent distress General Appearance: cooperative and comfortable HEENT normocephalic and head/scalp atraumatic Lymph Lymphatic: lymphedema moderate Resp normal respiratory effort Effort and Inspection: able to speak in complete sentences Cardio regular rate and regular rhythm Extremity Extremity Narrative: His ulcers are painful and the right lower leg remains more swollen than his left but there is good granulation tissue throughout and slough that is nearly completely removed post - debridement, edges of ulcers are beveled without rolled borders General Extremity: edema bilateral lower extremity Details: severe Skin General Skin Exam: venous stasis and dermatitis Wounds: wounds noted Wound Narrative: as in clinical panel, + devitalized tissue, there is increased depth, + granulation tissue bilateral ulcer with good granulation and moderate to heavy slough prior to debridement and minimal post debridement Psych mental status grossly normal, thought process normal, cooperative and affect normal Debridement Note Debridement Note Wound debrided: left medial LE ulcer Laterality: Left Type of Debridement: Excisional debridement Anesthesia Used: 5% Lidocaine Gel and Cetacaine Depth: Down to and including healthy tissue and in the subcutaneous layer Percentage of wound debrided: 100 Instrument Used: - (Misonix ultrasonic debridement) Tissue Removed: Yellow slough, devitalized tissue Severity: Fat Layer Exposed Amount of bleeding with debridement: Mild Bleeding Controlled with: Compression and gauze Patient tolerated procedure: Patient tolerated procedure well Post-Debridement Measurements and Additional Note: Post-Debridement Measurements/Treatment WC - Nurse 1 - General Ulcer Assessment Start: 03/15/25 11:57 Freq: Status: Active Protocol: ONDINA Activity Type Activity Date Activity User E-sign Co-sign Detail Recorded Client Recorded Date Recorded By Document 03/15/25 11:57 RB [id number] 03/15/25 12:01 RB Document 03/22/25 11:44 RB [id number] 03/22/25 11:51 RB 03/15/25 03/22/25 11:57 11:44 WC - Today's Visit Information Type of service Follow-up Visit Follow-up Visit (Physician/APPLICATIONS SPECIALIST (Physician/APPLICATIONS SPECIALIST ) ) Arrival Mode Ambulatory, Ambulatory Walker Transfer Assistance Manual None Patient Identification Verified (Name & Yes Yes ) Patient Requires Transmission-Based No No Precautions Vital Signs Temperature (97.8 F-99.1 F) 96.2 F L Temperature Source Temporal Pulse Rate (60-100) 59 L Pulse Location Monitor Respiratory Rate (12-18) 18 Respiratory rate source Observation Blood Pressure (90/60-120/80) 154/82 H Blood Pressure Mean (mm Hg) 106 Source Monitor Position Sitting Blood Pressure Location Left Arm History Since Last Visit- (Skip if this is Patient's initial visit) Have you changed medications since your No last visit? Any new allergies or adverse reactions No Had a fall/change in ADL's that may No increase risk of falls Signs or symptoms of abuse and/or No neglect since last visit Have you been in the hospital since your No last visit? Has dressing in place as prescribed Yes Has compression in place as prescribed Yes Has offloadiing in place as prescribed N/A Experienced any changes in pain level or No management Left Footwear Regular Shoe Right Footwear Regular Shoe Pain Scale: 0-10 Numeric Is Patient Pain Free? No Yes ble -Description Aching -Intensity 6 -Duration (hours) Acute -Pain Behavior Withdrawal from Touch -Pain Aggravating Factors Exercise/ Activity, Debridement -Alleviating Factors/Interventions Medication -Effectiveness of Alleviating Factor/ Moderately Intervention effective WC - Nurse 1 - General Ulcer Measurement Start: 03/15/25 11:57 Freq: Status: Active Protocol: Activity Type Activity Date Activity User E-sign Co-sign Detail Recorded Client Recorded Date Recorded By Document 03/15/25 11:57 RB [id number] 03/15/25 12:01 RB Document 03/22/25 11:44 RB [id number] 03/22/25 11:51 RB 03/15/25 03/22/25 11:57 11:44 Wound Center Nurse 1 #24 Left Lateral Leg -Combined with other wound No No -Current Size (cm) - Length 2 1.5 -Current Size (cm) - Width 0.7 0.7 -Current Size (cm) - Depth 0.1 0.1 -Total Square Cm 1.4 1.05 -Photo Taken Yes -Tunneling No No -Undermining/Tunneling No No -Circular Undermining No No -Exudate Amt Large Large -Exudate Type Serosanguineous Serosanguineous -Wound Margin Distinct, Distinct, Outline Outline Attached Attached -Granulation Amt Large (67-100%) Medium (34-66%) -Granulation Quality Lingle Lingle -Slough/Fibrin Yes Yes -Necrosis Amt Small (1-33%) Medium (34-66%) -Necrotic Tissue Type Adherent Slough Adherent Slough -Structure Exposed N/A N/A -Texture (Marie-wound Skin Appearance) Assessed, Assessed, Scarring Localized Edema -Moisture (Marie-wound Skin Appearance) Assessed Assessed -Color (Marie-wound Skin Appearance) Assessed Assessed -Temperature (Marie-wound Skin No Abnormality No Abnormality Appearance) (Pt Warm) (Pt Warm) -Tenderness on Palpation (Marie-wound No No Skin Appearance) -Ulcer Cleansing Wound Cleanser Wound Cleanser -Foul Odor after Cleansing No No -Anesthetic Used 5% Lidocaine 5% Lidocaine Gel Gel #22 R Medial/Lateral leg -Combined with other wound No No -Current Size (cm) - Length 11 30.5 -Current Size (cm) - Width 29 8.5 -Current Size (cm) - Depth 0.2 0.2 -Total Square Cm 319 259.25 -Photo Taken Yes -Tunneling No No -Undermining/Tunneling No No -Circular Undermining No No -Exudate Amt Large Medium -Exudate Type Serosanguineous Serosanguineous -Wound Margin Distinct, Distinct, Outline Outline Attached Attached -Granulation Amt Medium (34-66%) Medium (34-66%) -Granulation Quality Lingle Lingle -Slough/Fibrin Yes Yes -Necrosis Amt Small (1-33%) Medium (34-66%) -Necrotic Tissue Type Adherent Slough Adherent Slough -Structure Exposed N/A N/A -Texture (Marie-wound Skin Appearance) Assessed, Assessed, Scarring Localized Edema -Moisture (Marie-wound Skin Appearance) Assessed Assessed -Color (Marie-wound Skin Appearance) Assessed Assessed -Temperature (Marie-wound Skin No Abnormality No Abnormality Appearance) (Pt Warm) (Pt Warm) -Tenderness on Palpation (Marie-wound No No Skin Appearance) -Ulcer Cleansing Wound Cleanser Wound Cleanser -Foul Odor after Cleansing No No -Anesthetic Used 5% Lidocaine 5% Lidocaine Gel Gel #18 Left medial LE cluster -Combined with other wound No No -Current Size (cm) - Length 8 8.5 -Current Size (cm) - Width 15 4.5 -Current Size (cm) - Depth 0.1 0.1 -Total Square Cm 120 38.25 -Photo Taken Yes -Tunneling No No -Undermining/Tunneling No No -Circular Undermining No No -Exudate Amt Large Large -Exudate Type Serosanguineous Serosanguineous -Wound Margin Distinct, Distinct, Outline Outline Attached Attached -Granulation Amt Medium (34-66%) Medium (34-66%) -Granulation Quality Lingle Lingle -Slough/Fibrin Yes Yes -Necrosis Amt Medium (34-66%) Small (1-33%) -Necrotic Tissue Type Adherent Slough Adherent Slough -Structure Exposed N/A N/A -Texture (Marie-wound Skin Appearance) Assessed, Assessed, Localized Edema Localized Edema ,Scarring -Moisture (Marie-wound Skin Appearance) Assessed Assessed -Color (Marie-wound Skin Appearance) Assessed Assessed -Temperature (Marie-wound Skin No Abnormality No Abnormality Appearance) (Pt Warm) (Pt Warm) -Tenderness on Palpation (Marie-wound No No Skin Appearance) -Ulcer Cleansing Wound Cleanser Wound Cleanser -Foul Odor after Cleansing No No -Anesthetic Used 5% Lidocaine 5% Lidocaine Gel Gel Lower Limb Edema Present Yes Yes Right Calf (cm) 47 46.5 Right Ankle (cm) 31 30 Left Calf (cm) 44.5 45.5 Left Ankle (cm) 30.2 30.8 WC - Nurse 2 - General Ulcer CM Notes Start: 03/15/25 11:57 Freq: Status: Active Protocol: Activity Type Activity Date Activity User E-sign Co-sign Detail Recorded Client Recorded Date Recorded By Document 03/15/25 12:47 [id number] 03/15/25 12:55 Document 03/22/25 12:26 [id number] 03/22/25 12:41 03/15/25 03/22/25 12:47 12:26 Wound Center Nurse 2 #24 Left Lateral Leg -Time 12:47 12:26 -Correct Patient Yes Yes -Correct Side, Site, Position Yes Yes -Correct Procedure Yes Yes -Procedure Performed Yes Yes -Type of Procedure Debridement Debridement -Clinical Debridement Subcutaneous Subcutaneous -Tissue Removed Subcutaneous Subcutaneous -Post Debridement (cm) - Length 1.8 1.6 -Post Debridement (cm) - Width 1.0 0.5 -Post Debridement (cm) - Depth 0.1 0.1 -Total Square (Post) (cm) 1.80 0.80 -Area of Debridement (cm) - Length 1.8 1.6 -Area of Debridement (cm) - Width 1.0 0.5 -Total Square (Area) (cm) 1.80 0.80 -Tunneling No No -Undermining/Tunneling No No -Circular Undermining No No -Wound/Ulcer Outcome Not Healed Not Healed -Ulcer Cleansing Rinsed/ Not Cleansed Irrigated with Saline -Foul Odor after Cleansing No No -Bioengineered Tissue No No -Bleeding Controlled with Pressure NA -Treatment Response Procedure Procedure Tolerated Well Tolerated Well -Offloading No No -Debridement - Subq, 1st 20sq cm No No #22 R Medial/Lateral leg -Time 12:48 12:26 -Correct Patient Yes Yes -Correct Side, Site, Position Yes Yes -Correct Procedure Yes Yes -Procedure Performed Yes Yes -Type of Procedure Debridement Debridement -Clinical Debridement Subcutaneous Subcutaneous -Tissue Removed Subcutaneous Subcutaneous -Post Debridement (cm) - Length 11.0 10.0 -Post Debridement (cm) - Width 25.3 25.4 -Post Debridement (cm) - Depth 0.1 0.1 -Total Square (Post) (cm) 278.30 254.00 -Area of Debridement (cm) - Length 11.0 10.0 -Area of Debridement (cm) - Width 25.3 25.4 -Total Square (Area) (cm) 278.30 254.00 -Tunneling No No -Undermining/Tunneling No No -Circular Undermining No No -Wound/Ulcer Outcome Not Healed Not Healed -Ulcer Cleansing Rinsed/ Rinsed/ Irrigated with Irrigated with Saline Saline -Foul Odor after Cleansing No No -Bioengineered Tissue No No -Bleeding Controlled with Pressure Pressure -Treatment Response Procedure Procedure Tolerated Well Tolerated Well -Offloading No No -Debridement - Subq, 1st 20sq cm No No #18 Left medial LE cluster -Time 12:48 12:27 -Correct Patient Yes Yes -Correct Side, Site, Position Yes Yes -Correct Procedure Yes Yes -Procedure Performed Yes Yes -Type of Procedure Debridement Debridement -Clinical Debridement Subcutaneous Subcutaneous -Tissue Removed Subcutaneous Subcutaneous -Post Debridement (cm) - Length 8.2 8.3 -Post Debridement (cm) - Width 14.8 13.0 -Post Debridement (cm) - Depth 0.1 0.1 -Total Square (Post) (cm) 121.36 107.90 -Area of Debridement (cm) - Length 8.2 8.3 -Area of Debridement (cm) - Width 14.8 13.0 -Total Square (Area) (cm) 121.36 107.90 -Tunneling No No -Undermining/Tunneling No No -Circular Undermining No No -Wound/Ulcer Outcome Not Healed Not Healed -Ulcer Cleansing Rinsed/ Rinsed/ Irrigated with Irrigated with Saline Saline -Foul Odor after Cleansing No No -Bioengineered Tissue No No -Bleeding Controlled with Pressure Pressure -Treatment Response Procedure Procedure Tolerated Well Tolerated Well -Offloading No No -Debridement - Subq, 1st 20sq cm Yes Yes -Debridement, SubQ, ea addt'l 20sq cm 19 19 or part thereof Pain Scale: 0-10 Numeric Is Patient Pain Free? Yes Yes WC - Nurse 3 - General Ulcer D/C NN Start: 03/15/25 11:57 Freq: Status: Active Protocol: Activity Type Activity Date Activity User E-sign Co-sign Detail Recorded Client Recorded Date Recorded By Document 03/15/25 13:08 RB [id number] 03/15/25 13:10 RB Document 03/22/25 12:44 KW [id number] 03/22/25 12:45 KW Edit Result 03/22/25 12:44 KW (1) [id number] 03/22/25 12:58 RB (1) #24 Left Lateral Leg - Primary Dressing Applied => Optilok 5x5 1/2 - Optilok 5x5 1/2 => 2 03/15/25 03/22/25 13:08 12:44 Wound Care Center Nurse 3 #24 Left Lateral Leg -Primary Dressing Applied Optilok 5x5 1/2 -Other Dressing ABD -Primary Dressing Covered/Secured with Dry Gauze,Dry Dry Gauze & Gauze & Roll Roll Gauze, Gauze,Secured Secured with with Tape Tape -Optilok 5x5 1/2 2 #22 R Medial/Lateral leg -Other Dressing ABD -Primary Dressing Covered/Secured with Dry Gauze,Dry Dry Gauze & Gauze & Roll Roll Gauze, Gauze,Secured Secured with with Tape Tape #18 Left medial LE cluster -Other Dressing ABD -Primary Dressing Covered/Secured with Dry Gauze,Dry Dry Gauze & Gauze & Roll Roll Gauze, Gauze,Secured Secured with with Tape Tape BLE -Stockings Yes: circaid bilat -Other pt circaids Treatment Response Procedure Tolerated Well Pain Scale: 0-10 Numeric Is Patient Pain Free? Yes Yes WC - Visit Discharge Discharge Condition Stable Stable Ambulatory Status Ambulatory, Ambulatory, Walker Walker Transportation Private Auto Private Auto Medication Reconcilliation completed & No No provided to patient/care provider Clinical Summary of Care Provided Yes Yes Additional Wound Wound debrided: right lateral leg Laterality: Right Type of Debridement: Excisional debridement Anesthesia Used: 5% Lidocaine Gel and Cetacaine Depth: Down to and including healthy tissue and in the subcutaneous layer Percentage of wound debrided: 100 Instrument Used: - (Misonix ultrasonic debridement) Tissue Removed: Yellow slough, devitalized tissue Severity: Fat Layer Exposed Amount of bleeding with debridement: Mild Bleeding Controlled with: Compression and gauze Patient tolerated procedure: Patient tolerated procedure well Additional Wound Wound debrided: right medial leg Laterality: Right Type of Debridement: Excisional debridement Anesthesia Used: 5% Lidocaine Gel and Cetacaine Depth: Down to and including healthy tissue and in the subcutaneous layer Percentage of wound debrided: 100 Instrument Used: - (Misonix ultrasonic debridement) Tissue Removed: Yellow slough, devitalized tissue Severity: Fat Layer Exposed Amount of bleeding with debridement: Mild Bleeding Controlled with: Compression and gauze Patient tolerated procedure: Patient tolerated procedure well Assessment/Plan Assessment/Plan (1) Lymphedema: CODE(S): I89.0 - Lymphedema, not elsewhere classified (2) Hypertension: CODE(S): I10 - Essential (primary) hypertension QUALIFIERS: Hypertension type: primary hypertension Qualified Code(s): I10 - Essential (primary) hypertension (3) Hyperlipidemia: CODE(S): E78.5 - Hyperlipidemia, unspecified QUALIFIERS: Hyperlipidemia type: mixed hyperlipidemia Qualified Code(s): E78.2 - Mixed hyperlipidemia (4) History of DVT (deep vein thrombosis): CODE(S): Z86.718 - Personal history of other venous thrombosis and embolism (5) Venous insufficiency (chronic) (peripheral): CODE(S): I87.2 - Venous insufficiency (chronic) (peripheral) (6) Venous ulcer of left lower extremity with varicose veins: CODE(S): I83.029 - Varicose veins of left lower extremity with ulcer of unspecified site (7) Edema: CODE(S): R60.9 - Edema, unspecified QUALIFIERS: Edema type: unspecified Qualified Code(s): R60.9 - Edema, unspecified (8) 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 At home wound-care instructions: Will use Circaid compression garments with ABDand kerlix to right LE and left LE changed every other day. Due to his chronic lymphedema and being unable to don traditional compression stockings and the presence of venous ulcers on his LE b/l, it is medically necessary for him to have Circaid compression garments. He is using Circaid compression to both legs. I suspect he is not very compliant with his lymphedemapumps and not getting adequate compression with tubigrips. Due to the delayed progress in wound healing of his venous ulcers, we discussed applying for advanced wound healing product for healing his ulcer. Due to the size of his ulcer, Theraskin application approval was requested from his insurance as it is medically necessary for salvaging his limb and healing his ulcer. He underwent 2 applications of Theraskin to this ulcer. Since applicationof Theraskin he had much improvement in epithelialization of his ulcer even though the overall size is not significantly changed there was progress. He is using Circaid compression wraps. Off-loading: The patient was instructed to avoid pressure and friction on the affected areas. Reposition every 2 hours at minimum. Avoid prolonged standing and/or dangling of legs. When seated, feet should be elevated at chest level. Frequent ambulation is encouraged. Encouraged lymphedema pump use. Diet: Patient encouraged to increase protein intake while taking caution to avoid high carbohydrate and/or sugar intake. Labs/cultures/imaging: Wound culture showed Pseudomonas, Escherichia hermannii, Raoultella planticola, Vancomycin Resist. E. faecalis, Alcaligenes faecalis ssp faeca, Staphylococcus cohnii urealyti and anaerobic bacteria on 06/15/24 and he completed on Levofloxacin and Augmentin. Wound culture taken today on right lateral ulcer which showed Raoultella planticola, Staph hemolyticus, staph epidermidis and morganella morganii but no anaeroobic bacteria, Levofloxacin anddoxycyline were prescribed based on culture results. Labs ordered 10/19/2024. Vitamin D was low A1C 5.4% Wound culture from 12/07/24 was positive for Providencia stuartii, Vancomycin resistant E. Faecalis, Corynebacterium striatum and completed Augmentin orally. Follow-up: Return in 1 week for wound care follow up and have dressing changed by home health Mondays. Return sooner or report to the emergency room should symptoms worsen, or new symptoms arise. Note: [employer] speech recognition hair tinter software was used to create portions of this document. Sound-alike and misspelled words, as well as other hair tinter errors may be contained in the documentation. 03/22/25 1341 <Electronically signed by Patricia Garcia DO> Cosigner Signature (if applicable): CC: ~ Signed [facility] Work Phone: [phone] Progress note [facility] [address] [place] [address] Progress Note - Wound Care 03/22/25 1339 MR#: [id number] Acct: [id number] Name: ESTEBAN URBINA Rep #:[id number] : 1955 69 From: Patricia Garcia DO PCP: Dr. Patricia Garcia, DO Status:REG RCR Location: History of Present Illness Date of Service: 03/22/25 Chief Complaint: venous ulcers of left lower extremity History of Wound: Mauricio is a 69 yo gentleman who is here today for evaluation of ulcers to to his bilateral lower legs. [facility]. The left LE ulcer started after he developed increased swelling and blisters of left leg in Octoberand the right leg started sometime at the end of October. He was seen at PCP's office a culture was taken and it was resistant to several antibiotics. He wastreated initially with Levaquin but had myalgias and then was treated with doxycycline which he finished 2 days ago. He denies improvementand is having swelling to his left calf and thigh. He has been having swelling to both lower extremities for many years and it has worsened over the last few chirag hs. He has not been compliant with compression. He has had increased pain especially in the left leg. He has clear yellow drainage and redness without odor or warmth. He is anti- coagulated on coumadin. He has been washing with Dial soap and witch ifrah. He had been using Collagen at times and using Calcium Alginate and covering with ABD pads during October. He was treated with 3M compression and Aquacel Ag. He was referred to the wound center for ongoing treatment. His ulcers have moderate to heavy drainage. He was in the hospital from 11/30/22 until 12/09/22 for treatment of cellulitis andedema. He underwenttreatment with Vancomycin and IV lasix and compression. Discharged on 12/09/22. He returned to his assisted living apartment on Tuesday12/21/22. Subjective Subjective Mauricio is a 69-year-old male with longstanding history of chronic venous ulcerationto the left lower extremity and now a right lower extremity venous ulcer that isnearly circumferential. There continuesto be mild improvement in both ulcers over the last week. He is more compliant with elevation but still is not compliant with compression pump frequency. Wound culture from 12/07/24 was positive for Providencia stuartii, Vancomycin resistant E. Faecalis,Corynebacterium striatum and completed Augmentin orally. His edema is better this week and he is tolerating Circaid compression. 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 He continues to use his lymphedema pumps but continues to have painwith use of these pumps. 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 Objective Data Objective Data Vital Signs: Vital Signs Temp Pulse Resp BP 96.2 F L 59 L 18 154/82 H 03/22/25 11:44 03/22/25 11:44 03/22/25 11:44 03/22/25 11:44 Physical Exam Const alert, oriented x3 and no apparent distress General Appearance: cooperative and comfortable HEENT normocephalic and head/scalp atraumatic Lymph Lymphatic: lymphedema moderate Resp normal respiratory effort Effort and Inspection: able to speak in complete sentences Cardio regular rate and regular rhythm Extremity Extremity Narrative: His ulcers are painful and the right lower leg remains more swollen than his left but there is goodgranulation tissue throughout and slough that is nearly completely removed post - debridement, edges of ulcers are beveled without rolled borders General Extremity: edema bilateral lower extremity Details: severe Skin General Skin Exam: venous stasis and dermatitis Wounds: wounds noted Wound Narrative: as in clinical panel, + devitalized tissue, there is increased depth, + granulation tissue bilateral ulcer with good granulation and moderate to heavy slough prior to debridement and minimalpost debridement Psych mental status grossly normal, thought process normal, cooperative and affect normal Debridement Note Debridement Note Wound debrided: left medial LE ulcer Laterality: Left Type of Debridement: Excisional debridement Anesthesia Used: 5% Lidocaine Gel and Cetacaine Depth: Down to and including healthy tissue and in the subcutaneous layer Percentage of wound debrided: 100 Instrument Used: - (Misonix ultrasonic debridement) Tissue Removed: Yellow slough, devitalized tissue Severity: Fat Layer Exposed Amount of bleeding with debridement: Mild Bleeding Controlled with: Compression and gauze Patient tolerated procedure: Patient tolerated procedure well Post-Debridement Measurements and Additional Note: Post-Debridement Measurements/Treatment WC - Nurse 1 - General Ulcer Assessment Start: 03/15/25 11:57 Freq: Status: Active Protocol: ONDINA Activity Type Activity Date Activity User E-sign Co-sign Detail Recorded Client Recorded Date Recorded By Document 03/15/25 11:57 RB [id number] 03/15/25 12:01 RB Document 03/22/25 11:44 RB [id number] 03/22/25 11:51 RB 03/15/25 03/22/25 11:57 11:44 - Today's Visit Information Type of service Follow-up Visit Follow-up Visit (Physician/APPLICATIONS SPECIALIST (Physician/APPLICATIONS SPECIALIST ) ) Arrival Mode Ambulatory, Ambulatory Walker Transfer Assistance Manual None Patient Identification Verified (Name & Yes Yes ) Patient Requires Transmission-Based No No Precautions Vital Signs Temperature (97.8 F-99.1 F) 96.2 F L Temperature Source Temporal Pulse Rate (60-100) 59 L Pulse Location Monitor Respiratory Rate (12-18) 18 Respiratory rate source Observation Blood Pressure (90/60-120/80) 154/82 H Blood Pressure Mean (mm Hg) 106 Source Monitor Position Sitting Blood Pressure Location Left Arm History Since Last Visit- (Skip if this is Patient's initial visit) Have you changed medications since your No last visit? Any new allergies or adverse reactions No Had a fall/change in ADL's that may No increase risk of falls Signs or symptoms of abuse and/or No neglect since last visit Have you been in the hospital since your No last visit? Has dressing in place as prescribed Yes Has compression in place as prescribed Yes Has offloadiing in place as prescribed N/A Experienced any changes in pain level or No management Left Footwear Regular Shoe Right Footwear Regular Shoe Pain Scale: 0-10 Numeric Is Patient Pain Free? No Yes ble -Description Aching -Intensity 6 -Duration (hours) Acute -Pain Behavior Withdrawal from Touch -Pain Aggravating Factors Exercise/ Activity, Debridement -Alleviating Factors/Interventions Medication -Effectiveness of Alleviating Factor/ Moderately Intervention effective - Nurse 1 - General Ulcer Measurement Start: 03/15/25 11:57 Freq: Status: Active Protocol: Activity Type Activity Date Activity User E-sign Co-sign Detail Recorded Client Recorded Date Recorded By Document 03/15/25 11:57 RB [id number] 03/15/25 12:01 RB Document 03/22/25 11:44 RB [id number] 03/22/25 11:51 RB 03/15/25 03/22/25 11:57 11:44 Wound Center Nurse 1 #24 Left Lateral Leg -Combined with other wound No No -Current Size (cm) - Length 2 1.5 -Current Size (cm) - Width 0.7 0.7 -Current Size (cm) - Depth 0.1 0.1 -Total Square Cm 1.4 1.05 -Photo Taken Yes -Tunneling No No -Undermining/Tunneling No No -Circular Undermining No No -Exudate Amt Large Large -Exudate Type Serosanguineous Serosanguineous -Wound Margin Distinct, Distinct, Outline Outline Attached Attached -Granulation Amt Large (67-100%) Medium (34-66%) -Granulation Quality Lingle Lingle -Slough/Fibrin Yes Yes -Necrosis Amt Small (1-33%) Medium (34-66%) -Necrotic Tissue Type Adherent Slough Adherent Slough -Structure Exposed N/A N/A -Texture (Marie-wound Skin Appearance) Assessed, Assessed, Scarring Localized Edema -Moisture (Marie-wound Skin Appearance) Assessed Assessed -Color (Marie-wound Skin Appearance) Assessed Assessed -Temperature (Marie-wound Skin No Abnormality No Abnormality Appearance) (Pt Warm) (Pt Warm) -Tenderness on Palpation (Marie-wound No No Skin Appearance) -Ulcer Cleansing Wound Cleanser Wound Cleanser -Foul Odor after Cleansing No No -Anesthetic Used 5% Lidocaine 5% Lidocaine Gel Gel #22 R Medial/Lateral leg -Combined with other wound No No -Current Size (cm) - Length 11 30.5 -Current Size (cm) - Width 29 8.5 -Current Size (cm) - Depth 0.2 0.2 -Total Square Cm 319 259.25 -Photo Taken Yes -Tunneling No No -Undermining/Tunneling No No -Circular Undermining No No -Exudate Amt Large Medium -Exudate Type Serosanguineous Serosanguineous -Wound Margin Distinct, Distinct, Outline Outline Attached Attached -Granulation Amt Medium (34-66%) Medium (34-66%) -Granulation Quality Lingle Lingle -Slough/Fibrin Yes Yes -Necrosis Amt Small (1-33%) Medium (34-66%) -Necrotic Tissue Type Adherent Slough Adherent Slough -Structure Exposed N/A N/A -Texture (Marie-wound Skin Appearance) Assessed, Assessed, Scarring Localized Edema -Moisture (Marie-wound Skin Appearance) Assessed Assessed -Color (Marie-wound Skin Appearance) Assessed Assessed -Temperature (Marie-wound Skin No Abnormality No Abnormality Appearance) (Pt Warm) (Pt Warm) -Tenderness on Palpation (Marie-wound No No Skin Appearance) -Ulcer Cleansing Wound Cleanser Wound Cleanser -Foul Odor after Cleansing No No -Anesthetic Used 5% Lidocaine 5% Lidocaine Gel Gel #18 Left medial LE cluster -Combined with other wound No No -Current Size (cm) - Length 8 8.5 -Current Size (cm) - Width 15 4.5 -Current Size (cm) - Depth 0.1 0.1 -Total Square Cm 120 38.25 -Photo Taken Yes -Tunneling No No -Undermining/Tunneling No No -Circular Undermining No No -Exudate Amt Large Large -Exudate Type Serosanguineous Serosanguineous -Wound Margin Distinct, Distinct, Outline Outline Attached Attached -Granulation Amt Medium (34-66%) Medium (34-66%) -Granulation Quality Lingle Lingle -Slough/Fibrin Yes Yes -Necrosis Amt Medium (34-66%) Small (1-33%) -Necrotic Tissue Type Adherent Slough Adherent Slough -Structure Exposed N/A N/A -Texture (Marie-wound Skin Appearance) Assessed, Assessed, Localized Edema Localized Edema ,Scarring -Moisture (Marie-wound Skin Appearance) Assessed Assessed -Color (Marie-wound Skin Appearance) Assessed Assessed -Temperature (Marie-wound Skin No Abnormality No Abnormality Appearance) (Pt Warm) (Pt Warm) -Tenderness on Palpation (Marie-wound No No Skin Appearance) -Ulcer Cleansing Wound Cleanser Wound Cleanser -Foul Odor after Cleansing No No -Anesthetic Used 5% Lidocaine 5% Lidocaine Gel Gel Lower Limb Edema Present Yes Yes Right Calf (cm) 47 46.5 Right Ankle (cm) 31 30 Left Calf (cm) 44.5 45.5 Left Ankle (cm) 30.2 30.8 WC - Nurse 2 - General Ulcer CM Notes Start: 03/15/25 11:57 Freq: Status: Active Protocol: Activity Type Activity Date Activity User E-sign Co-sign Detail Recorded Client Recorded Date Recorded By Document 03/15/25 12:47 [id number] 03/15/25 12:55 GM Document 03/22/25 12:26 [id number] 03/22/25 12:41 03/15/25 03/22/25 12:47 12:26 Wound Center Nurse 2 #24 Left Lateral Leg -Time 12:47 12:26 -Correct Patient Yes Yes -Correct Side, Site, Position Yes Yes -Correct Procedure Yes Yes -Procedure Performed Yes Yes -Type of Procedure Debridement Debridement -Clinical Debridement Subcutaneous Subcutaneous -Tissue Removed Subcutaneous Subcutaneous -Post Debridement (cm) - Length 1.8 1.6 -Post Debridement (cm) - Width 1.0 0.5 -Post Debridement (cm) - Depth 0.1 0.1 -Total Square (Post) (cm) 1.80 0.80 -Area of Debridement (cm) - Length 1.8 1.6 -Area of Debridement (cm) - Width 1.0 0.5 -Total Square (Area) (cm) 1.80 0.80 -Tunneling No No -Undermining/Tunneling No No -Circular Undermining No No -Wound/Ulcer Outcome Not Healed Not Healed -Ulcer Cleansing Rinsed/ Not Cleansed Irrigated with Saline -Foul Odor after Cleansing No No -Bioengineered Tissue No No -Bleeding Controlled with Pressure NA -Treatment Response Procedure Procedure Tolerated Well Tolerated Well -Offloading No No -Debridement - Subq, 1st 20sq cm No No #22 R Medial/Lateral leg -Time 12:48 12:26 -Correct Patient Yes Yes -Correct Side, Site, Position Yes Yes -Correct Procedure Yes Yes -Procedure Performed Yes Yes -Type of Procedure Debridement Debridement -Clinical Debridement Subcutaneous Subcutaneous -Tissue Removed Subcutaneous Subcutaneous -Post Debridement (cm) - Length 11.0 10.0 -Post Debridement (cm) - Width 25.3 25.4 -Post Debridement (cm) - Depth 0.1 0.1 -Total Square (Post) (cm) 278.30 254.00 -Area of Debridement (cm) - Length 11.0 10.0 -Area of Debridement (cm) - Width 25.3 25.4 -Total Square (Area) (cm) 278.30 254.00 -Tunneling No No -Undermining/Tunneling No No -Circular Undermining No No -Wound/Ulcer Outcome Not Healed Not Healed -Ulcer Cleansing Rinsed/ Rinsed/ Irrigated with Irrigated with Saline Saline -Foul Odor after Cleansing No No -Bioengineered Tissue No No -Bleeding Controlled with Pressure Pressure -Treatment Response Procedure Procedure Tolerated Well Tolerated Well -Offloading No No -Debridement - Subq, 1st 20sq cm No No #18 Left medial LE cluster -Time 12:48 12:27 -Correct Patient Yes Yes -Correct Side, Site, Position Yes Yes -Correct Procedure Yes Yes -Procedure Performed Yes Yes -Type of Procedure Debridement Debridement -Clinical Debridement Subcutaneous Subcutaneous -Tissue Removed Subcutaneous Subcutaneous -Post Debridement (cm) - Length 8.2 8.3 -Post Debridement (cm) - Width 14.8 13.0 -Post Debridement (cm) - Depth 0.1 0.1 -Total Square (Post) (cm) 121.36 107.90 -Area of Debridement (cm) - Length 8.2 8.3 -Area of Debridement (cm) - Width 14.8 13.0 -Total Square (Area) (cm) 121.36 107.90 -Tunneling No No -Undermining/Tunneling No No -Circular Undermining No No -Wound/Ulcer Outcome Not Healed Not Healed -Ulcer Cleansing Rinsed/ Rinsed/ Irrigated with Irrigated with Saline Saline -Foul Odor after Cleansing No No -Bioengineered Tissue No No -Bleeding Controlled with Pressure Pressure -Treatment Response Procedure Procedure Tolerated Well Tolerated Well -Offloading No No -Debridement - Subq, 1st 20sq cm Yes Yes -Debridement, SubQ, ea addt'l 20sq cm 19 19 or part thereof Pain Scale: 0-10 Numeric Is Patient Pain Free? Yes Yes WC - Nurse 3 - General Ulcer D/C NN Start: 03/15/25 11:57 Freq: Status: Active Protocol: Activity Type Activity Date Activity User E-sign Co-sign Detail Recorded Client Recorded Date Recorded By Document 03/15/25 13:08 RB [id number] 03/15/25 13:10 RB Document 03/22/25 12:44 KW [id number] 03/22/25 12:45 KW Edit Result 03/22/25 12:44 KW (1) [id number] 03/22/25 12:58 RB (1) #24 Left Lateral Leg - Primary Dressing Applied => Optilok 5x5 1/2 - Optilok 5x5 1/2 => 2 03/15/25 03/22/25 13:08 12:44 Wound Care Center Nurse 3 #24 Left Lateral Leg -Primary Dressing Applied Optilok 5x5 1/2 -Other Dressing ABD -Primary Dressing Covered/Secured with Dry Gauze,Dry Dry Gauze & Gauze & Roll Roll Gauze, Gauze,Secured Secured with with Tape Tape -Optilok 5x5 1/2 2 #22 R Medial/Lateral leg -Other Dressing ABD -Primary Dressing Covered/Secured with Dry Gauze,Dry Dry Gauze & Gauze & Roll Roll Gauze, Gauze,Secured Secured with with Tape Tape #18 Left medial LE cluster -Other Dressing ABD -Primary Dressing Covered/Secured with Dry Gauze,Dry Dry Gauze & Gauze & Roll Roll Gauze, Gauze,Secured Secured with with Tape Tape BLE -Stockings Yes: circaid bilat -Other pt circaids Treatment Response Procedure Tolerated Well Pain Scale: 0-10 Numeric Is Patient Pain Free? Yes Yes WC - Visit Discharge Discharge Condition Stable Stable Ambulatory Status Ambulatory, Ambulatory, Walker Walker Transportation Private Auto Private Auto Medication Reconcilliation completed & No No provided to patient/care provider Clinical Summary of Care Provided Yes Yes Additional Wound Wound debrided: right lateral leg Laterality: Right Type of Debridement: Excisional debridement Anesthesia Used: 5% Lidocaine Gel and Cetacaine Depth: Down to and including healthy tissue and in the subcutaneous layer Percentage of wound debrided: 100 Instrument Used: - (Misonix ultrasonic debridement) Tissue Removed: Yellow slough, devitalized tissue Severity: Fat Layer Exposed Amount of bleeding with debridement: Mild Bleeding Controlled with: Compression and gauze Patient tolerated procedure: Patient tolerated procedure well Additional Wound Wound debrided: right medial leg Laterality: Right Type of Debridement: Excisional debridement Anesthesia Used: 5% Lidocaine Gel and Cetacaine Depth: Down to and including healthy tissue and in the subcutaneous layer Percentage of wound debrided: 100 Instrument Used: - (Misonix ultrasonic debridement) Tissue Removed: Yellow slough, devitalized tissue Severity: Fat Layer Exposed Amount of bleeding with debridement: Mild Bleeding Controlled with: Compression and gauze Patient tolerated procedure: Patient tolerated procedure well Assessment/Plan Assessment/Plan (1) Lymphedema: CODE(S): I89.0 - Lymphedema, not elsewhere classified (2) Hypertension: CODE(S): I10 - Essential (primary) hypertension QUALIFIERS: Hypertension type: primary hypertension Qualified Code(s): I10 - Essential (primary) hypertension (3) Hyperlipidemia: CODE(S): E78.5 - Hyperlipidemia, unspecified QUALIFIERS: Hyperlipidemia type: mixed hyperlipidemia Qualified Code(s): E78.2 - Mixed hyperlipidemia (4) History of DVT (deep vein thrombosis): CODE(S): Z86.718 - Personal history of other venous thrombosis and embolism (5) Venous insufficiency (chronic) (peripheral): CODE(S): I87.2 - Venous insufficiency (chronic) (peripheral) (6) Venous ulcer of left lower extremity with varicose veins: CODE(S): I83.029 - Varicose veins of left lower extremity with ulcer of unspecified site (7) Edema: CODE(S): R60.9 - Edema, unspecified QUALIFIERS: Edema type: unspecified Qualified Code(s): R60.9 - Edema, unspecified (8) 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 At home wound-care instructions: Will use Circaid compression garments with ABDand kerlix to right LE and left LE changed every other day. Due to his chronic lymphedema and being unable to don traditional compression stockings and the presence of venous ulcers on his LE b/l, it is medically necessary for him to have Circaid compression garments. He is using Circaid compression to both legs. I suspect he is not very compliant with his l ymphedemapumps and not getting adequate compression with tubigrips. Due to the delayed progress in wound healing of his venous ulcers, we discussed applying for advanced wound healing product for healing his ulcer. Due to the size of his ulcer, Theraskin application approval was requested from his insurance as it is medically necessary for salvaging his limb and healing his ulcer. He underwent 2 applications of Theraskin to this ulcer. Since applicationof Theraskin he had much improvement in epithelialization of his ulcer even though the overall size is not significantly changed there was progress. He is using Circaid compression wraps. Off-loading: The patient was instructed to avoid pressure and friction on the affected areas. Reposition every 2 hours at minimum. Avoid prolonged standing and/or dangling of legs. When seated, feet should be elevated at chest level. Frequent ambulation is encouraged. Encouraged lymphedema pump use. Diet: Patient encouraged to increase protein intake while taking caution to avoid high carbohydrateand/or sugar intake. Labs/cultures/imaging: Wound culture showed Pseudomonas, Escherichia hermannii, Raoultella planticola, Vancomycin Resist. E. faecalis, Alcaligenes faecalis ssp faeca, Staphylococcus cohnii urealyti and anaerobic bacteria on 06/15/24 and he completed on Levofloxacin and Augmentin. Wound culture taken today on right lateral ulcer which showed Raoultella planticola, Staph hemolyticus, staph epidermidis and morganella morganii but no anaeroobic bacteria, Levofloxacin anddoxycyline were prescribed based on culture results. Labs ordered 10/19/2024. Vitamin D was low A1C 5.4% Wound culture from 12/07/24 was positive for Providencia stuartii, Vancomycin resistant E. Faecalis, Corynebacterium striatum and completed Augmentinorally. Follow-up: Return in 1 week for wound care follow up and have dressing changed by home health Mondays. Return sooner or report to the emergency room should symptoms worsen, or new symptoms arise. Note: [employer] speech recognition hair tinter software was used to create portions of this document. Sound-alike and misspelled words, as well as other hair tinter errors may be contained in the documentation. 03/22/25 1341 Cosigner Signature (if applicable): CC: ~ Signed [facility]06-06-2025 Progress note Author Patricia Garcia [facility] Note Date/Time March 15, 2025 2:37p m [facility] [address] [place] [address] Progress Note - Wound Care 03/15/25 1434 MR#: [id number] Acct: [id number] Name: ESTEBAN URBINA Rep #:[id number] : 1955 69 From: Patricia Garcia DO PCP: Dr. Patricia Garcia, DO Status:REG RCR Location: History of Present Illness Date of Service: 03/15/25 Chief Complaint: venous ulcers of left lower extremity History of Wound: Mauricio is a 69 yo gentleman who is here today for evaluation of ulcers to to his bilateral lower legs. He has been treated multiple times in thepa at the wound healing center for similar ulcers. The left LE ulcer started after he developed increased swelling and blisters of left leg in October and the right leg started sometime at the end of October. He was seen at PCP's office a culture was taken and it was resistant to several antibiotics. He was treated initially with Levaquin but had myalgias and then was treated with doxycycline which he finished 2 days ago. He denies improvementand is having swelling to his left calf and thigh. He has been having swelling to both lower extremities for many years and it has worsened over the last few months. He has not been compliant with compression. He has had increased pain especially in the left leg. He has clear yellow drainage and redness without odor or warmth. He is anti-coagulated on coumadin. He has been washing with Dial soap and witch ifrah. He had been using Collagen at times and using Calcium Alginate and covering with ABD pads during October. He was treated with 3M compression and Aquacel Ag. He was referred to the wound center for ongoing treatment. His ulcers have moderate to heavy drainage. He was in the hospital from 11/30/22 until 12/09/22 for treatment of cellulitis andedema. He underwent treatment with Vancomycin and IV lasix and compression. Discharged on 12/09/22. He returned to his assisted living apartment on Tuesday12/21/22. Subjective Subjective Mauricio is a 69-year-old male with longstanding history of chronic venous ulcerationto the left lower extremity and now a right lower extremity venous ulcer that isnearly circumferential. There continues to be mild improvement in both ulcers over the last week. He is more compliant with elevation but still is not compliant with compression pump frequency. Wound culture from 12/07/24 was positive for Providencia stuartii, Vancomycin resistant E. Faecalis, Corynebacterium striatum and completed Augmentin orally. His edema is better this week and he is tolerating Circaid compression. 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 He continues to use his lymphedema pumps but continues to have painwith use of these pumps. 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 Objective Data Objective Data Vital Signs: Vital Signs Temp Pulse Resp BP 96.5 F L 68 16 138/89 H 03/10/25 00:06 03/10/25 00:06 03/10/25 00:06 03/10/25 00:06 Physical Exam Const alert, oriented x3 and no apparent distress General Appearance: cooperative and comfortable HEENT normocephalic and head/scalp atraumatic Lymph Lymphatic: lymphedema moderate Resp normal respiratory effort Effort and Inspection: able to speak in complete sentences Cardio regular rate and regular rhythm Extremity Extremity Narrative: His ulcers are painful and the right lower leg remains more swollen than his left but there is good granulation tissue throughout and slough that is nearly completely removed post - debridement, edges of ulcers are beveled without rolled borders General Extremity: edema bilateral lower extremity Details: severe Skin General Skin Exam: venous stasis and dermatitis Wounds: wounds noted Wound Narrative: as in clinical panel, + devitalized tissue, there is increased depth, + granulation tissue bilateral ulcer with good granulation and moderate to heavy slough prior to debridement and minimal post debridement Psych mental status grossly normal, thought process normal, cooperative and affect normal Debridement Note Debridement Note Wound debrided: left medial LE ulcer Laterality: Left Type of Debridement: Excisional debridement Anesthesia Used: 5% Lidocaine Gel and Cetacaine Depth: Down to and including healthy tissue and in the subcutaneous layer Percentage of wound debrided: 100 Instrument Used: - (Misonix ultrasonic debridement) Tissue Removed: Yellow slough, devitalized tissue Severity: Fat Layer Exposed Amount of bleeding with debridement: Mild Bleeding Controlled with: Compression and gauze Patient tolerated procedure: Patient tolerated procedure well Post-Debridement Measurements and Additional Note: Post-Debridement Measurements/Treatment DEBBIE - Nurse 1 - General Ulcer Assessment Start: 03/15/25 11:57 Freq: Status: Active Protocol: ONDINA Activity Type Activity Date Activity User E-sign Co-sign Detail Recorded Client Recorded Date Recorded By Document 03/15/25 11:57 RB [id number] 03/15/25 12:01 03/15/25 11:57 - Today's Visit Information Type of service Follow-up Visit (Physician/APPLICATIONS SPECIALIST ) Arrival Mode Ambulatory, Walker Transfer Assistance Manual Patient Identification Verified (Name & Yes ) Patient Requires Transmission-Based No Precautions Pain Scale: 0-10 Numeric Is Patient Pain Free? No ble -Description Aching -Intensity 6 -Duration (hours) Acute -Pain Behavior Withdrawal from Touch -Pain Aggravating Factors Exercise/ Activity, Debridement -Alleviating Factors/Interventions Medication -Effectiveness of Alleviating Factor/ Moderately Intervention effective - Nurse 1 - General Ulcer Measurement Start: 03/15/25 11:57 Freq: Status: Active Protocol: Activity Type Activity Date Activity User E-sign Co-sign Detail Recorded Client Recorded Date Recorded By Document 03/15/25 11:57 [id number] 03/15/25 12:01 03/15/25 11:57 Wound Center Nurse 1 #24 Left Lateral Leg -Combined with other wound No -Current Size (cm) - Length 2 -Current Size (cm) - Width 0.7 -Current Size (cm) - Depth 0.1 -Total Square Cm 1.4 -Tunneling No -Undermining/Tunneling No -Circular Undermining No -Exudate Amt Large -Exudate Type Serosanguineous -Wound Margin Distinct, Outline Attached -Granulation Amt Large (67-100%) -Granulation Quality Lingle -Slough/Fibrin Yes -Necrosis Amt Small (1-33%) -Necrotic Tissue Type Adherent Slough -Structure Exposed N/A -Texture (Marie-wound Skin Appearance) Assessed, Scarring -Moisture (Marie-wound Skin Appearance) Assessed -Color (Marie-wound Skin Appearance) Assessed -Temperature (Marie-wound Skin No Abnormality Appearance) (Pt Warm) -Tenderness on Palpation (Marie-wound No Skin Appearance) -Ulcer Cleansing Wound Cleanser -Foul Odor after Cleansing No -Anesthetic Used 5% Lidocaine Gel #22 R Medial Lateral -Combined with other wound No -Current Size (cm) - Length 11 -Current Size (cm) - Width 29 -Current Size (cm) - Depth 0.2 -Total Square Cm 319 -Tunneling No -Undermining/Tunneling No -Circular Undermining No -Exudate Amt Large -Exudate Type Serosanguineous -Wound Margin Distinct, Outline Attached -Granulation Amt Medium (34-66%) -Granulation Quality Lingle -Slough/Fibrin Yes -Necrosis Amt Small (1-33%) -Necrotic Tissue Type Adherent Slough -Structure Exposed N/A -Texture (Marie-wound Skin Appearance) Assessed, Scarring -Moisture (Marie-wound Skin Appearance) Assessed -Color (Marie-wound Skin Appearance) Assessed -Temperature (Marie-wound Skin No Abnormality Appearance) (Pt Warm) -Tenderness on Palpation (Marie-wound No Skin Appearance) -Ulcer Cleansing Wound Cleanser -Foul Odor after Cleansing No -Anesthetic Used 5% Lidocaine Gel #18 Left medial LE cluster -Combined with other wound No -Current Size (cm) - Length 8 -Current Size (cm) - Width 15 -Current Size (cm) - Depth 0.1 -Total Square Cm 120 -Tunneling No -Undermining/Tunneling No -Circular Undermining No -Exudate Amt Large -Exudate Type Serosanguineous -Wound Margin Distinct, Outline Attached -Granulation Amt Medium (34-66%) -Granulation Quality Lingle -Slough/Fibrin Yes -Necrosis Amt Medium (34-66%) -Necrotic Tissue Type Adherent Slough -Structure Exposed N/A -Texture (Marie-wound Skin Appearance) Assessed, Localized Edema ,Scarring -Moisture (Marie-wound Skin Appearance) Assessed -Color (Marie-wound Skin Appearance) Assessed -Temperature (Marie-wound Skin No Abnormality Appearance) (Pt Warm) -Tenderness on Palpation (Marie-wound No Skin Appearance) -Ulcer Cleansing Wound Cleanser -Foul Odor after Cleansing No -Anesthetic Used 5% Lidocaine Gel Lower Limb Edema Present Yes Right Calf (cm) 47 Right Ankle (cm) 31 Left Calf (cm) 44.5 Left Ankle (cm) 30.2 WC - Nurse 2 - General Ulcer CM Notes Start: 03/15/25 11:57 Freq: Status: Active Protocol: Activity Type Activity Date Activity User E-sign Co-sign Detail Recorded Client Recorded Date Recorded By Document 03/15/25 12:47 [id number] 03/15/25 12:55 GM 03/15/25 12:47 Wound Center Nurse 2 #24 Left Lateral Leg -Time 12:47 -Correct Patient Yes -Correct Side, Site, Position Yes -Correct Procedure Yes -Procedure Performed Yes -Type of Procedure Debridement -Clinical Debridement Subcutaneous -Tissue Removed Subcutaneous -Post Debridement (cm) - Length 1.8 -Post Debridement (cm) - Width 1.0 -Post Debridement (cm) - Depth 0.1 -Total Square (Post) (cm) 1.80 -Area of Debridement (cm) - Length 1.8 -Area of Debridement (cm) - Width 1.0 -Total Square (Area) (cm) 1.80 -Tunneling No -Undermining/Tunneling No -Circular Undermining No -Wound/Ulcer Outcome Not Healed -Ulcer Cleansing Rinsed/ Irrigated with Saline -Foul Odor after Cleansing No -Bioengineered Tissue No -Bleeding Controlled with Pressure -Treatment Response Procedure Tolerated Well -Offloading No -Debridement - Subq, 1st 20sq cm No #22 R Medial Lateral -Time 12:48 -Correct Patient Yes -Correct Side, Site, Position Yes -Correct Procedure Yes -Procedure Performed Yes -Type of Procedure Debridement -Clinical Debridement Subcutaneous -Tissue Removed Subcutaneous -Post Debridement (cm) - Length 11.0 -Post Debridement (cm) - Width 25.3 -Post Debridement (cm) - Depth 0.1 -Total Square (Post) (cm) 278.30 -Area of Debridement (cm) - Length 11.0 -Area of Debridement (cm) - Width 25.3 -Total Square (Area) (cm) 278.30 -Tunneling No -Undermining/Tunneling No -Circular Undermining No -Wound/Ulcer Outcome Not Healed -Ulcer Cleansing Rinsed/ Irrigated with Saline -Foul Odor after Cleansing No -Bioengineered Tissue No -Bleeding Controlled with Pressure -Treatment Response Procedure Tolerated Well -Offloading No -Debridement - Subq, 1st 20sq cm No #18 Left medial LE cluster -Time 12:48 -Correct Patient Yes -Correct Side, Site, Position Yes -Correct Procedure Yes -Procedure Performed Yes -Type of Procedure Debridement -Clinical Debridement Subcutaneous -Tissue Removed Subcutaneous -Post Debridement (cm) - Length 8.2 -Post Debridement (cm) - Width 14.8 -Post Debridement (cm) - Depth 0.1 -Total Square (Post) (cm) 121.36 -Area of Debridement (cm) - Length 8.2 -Area of Debridement (cm) - Width 14.8 -Total Square (Area) (cm) 121.36 -Tunneling No -Undermining/Tunneling No -Circular Undermining No -Wound/Ulcer Outcome Not Healed -Ulcer Cleansing Rinsed/ Irrigated with Saline -Foul Odor after Cleansing No -Bioengineered Tissue No -Bleeding Controlled with Pressure -Treatment Response Procedure Tolerated Well -Offloading No -Debridement - Subq, 1st 20sq cm Yes -Debridement, SubQ, ea addt'l 20sq cm 19 or part thereof Pain Scale: 0-10 Numeric Is Patient Pain Free? Yes - Nurse 3 - General Ulcer D/C NN Start: 03/15/25 11:57 Freq: Status: Active Protocol: Activity Type Activity Date Activity User E-sign Co-sign Detail Recorded Client Recorded Date Recorded By Document 03/15/25 13:08 RB [id number] 03/15/25 13:10 RB 03/15/25 13:08 Wound Care Center Nurse 3 #24 Left Lateral Leg -Other Dressing ABD -Primary Dressing Covered/Secured with Dry Gauze,Dry Gauze & Roll Gauze,Secured with Tape #22 R Medial Lateral -Other Dressing ABD -Primary Dressing Covered/Secured with Dry Gauze,Dry Gauze & Roll Gauze,Secured with Tape #18 Left medial LE cluster -Other Dressing ABD -Primary Dressing Covered/Secured with Dry Gauze,Dry Gauze & Roll Gauze,Secured with Tape BLE -Stockings Yes: circaid bilat Treatment Response Procedure Tolerated Well Pain Scale: 0-10 Numeric Is Patient Pain Free? Yes - Visit Discharge Discharge Condition Stable Ambulatory Status Ambulatory, Walker Transportation Private Auto Medication Reconcilliation completed & No provided to patient/care provider Clinical Summary of Care Provided Yes Additional Wound Wound debrided: right lateral leg Laterality: Right Type of Debridement: Excisional debridement Anesthesia Used: 5% Lidocaine Gel and Cetacaine Depth: Down to and including healthy tissue and in the subcutaneous layer Percentage of wound debrided: 100 Instrument Used: - (Misonix ultrasonic debridement) Tissue Removed: Yellow slough, devitalized tissue Severity: Fat Layer Exposed Amount of bleeding with debridement: Mild Bleeding Controlled with: Compression and gauze Patient tolerated procedure: Patient tolerated procedure well Additional Wound Wound debrided: right medial leg Laterality: Right Type of Debridement: Excisional debridement Anesthesia Used: 5% Lidocaine Gel and Cetacaine Depth: Down to and including healthy tissue and in the subcutaneous layer Percentage of wound debrided: 100 Instrument Used: - (Misonix ultrasonic debridement) Tissue Removed: Yellow slough, devitalized tissue Severity: Fat Layer Exposed Amount of bleeding with debridement: Mild Bleeding Controlled with: Compression and gauze Patient tolerated procedure: Patient tolerated procedure well Assessment/Plan Assessment/Plan (1) Lymphedema: CODE(S): I89.0 - Lymphedema, not elsewhere classified (2) Hypertension: CODE(S): I10 - Essential (primary) hypertension QUALIFIERS: Hypertension type: primary hypertension Qualified Code(s): I10 - Essential (primary) hypertension (3) Hyperlipidemia: CODE(S): E78.5 - Hyperlipidemia, unspecified QUALIFIERS: Hyperlipidemia type: mixed hyperlipidemia Qualified Code(s): E78.2 - Mixed hyperlipidemia (4) History of DVT (deep vein thrombosis): CODE(S): Z86.718 - Personal history of other venous thrombosis and embolism (5) Venous insufficiency (chronic) (peripheral): CODE(S): I87.2 - Venous insufficiency (chronic) (peripheral) (6) Venous ulcer of left lower extremity with varicose veins: CODE(S): I83.029 - Varicose veins of left lower extremity with ulcer of unspecified site (7) Edema: CODE(S): R60.9 - Edema, unspecified QUALIFIERS: Edema type: unspecified Qualified Code(s): R60.9 - Edema, unspecified (8) 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 At home wound-care instructions: Will use Circaid compression garments with ABDand kerlix to right LE and left LE changed every other day. Due to his chronic lymphedema and being unable to don traditional compression stockings and the presence of venous ulcers on his LE b/l, it is medically necessary for him to have Circaid compression garments. He is using Circaid compression to both legs. I suspect he is not very compliant with his lymphedemapumps and not getting adequate compression with tubigrips. Due to the delayed progress in wound healing of his venous ulcers, we discussed applying for advanced wound healing product for healing his ulcer. Due to the size of his ulcer, Theraskin application approval was requested from his insurance as it is medically necessary for salvaging his limb and healing his ulcer. He underwent 2 applications of Theraskin to this ulcer. Since applicationof Theraskin he had much improvement in epithelialization of his ulcer even though the overall size is not significantly changed there was progress. He is using Circaid compression wraps. Off-loading: The patient was instructed to avoid pressure and friction on the affected areas. Reposition every 2 hours at minimum. Avoid prolonged standing and/or dangling of legs. When seated, feet should be elevated at chest level. Frequent ambulation is encouraged. Encouraged lymphedema pump use. Diet: Patient encouraged to increase protein intake while taking caution to avoid high carbohydrate and/or sugar intake. Labs/cultures/imaging: Wound culture showed Pseudomonas, Escherichia hermannii, Raoultella planticola, Vancomycin Resist. E. faecalis, Alcaligenes faecalis ssp faeca, Staphylococcus cohnii urealyti and anaerobic bacteria on 06/15/24 and he completed on Levofloxacin and Augmentin. Wound culture taken today on right lateral ulcer which showed Raoultella planticola, Staph hemolyticus, staph epidermidis and morganella morganii but no anaeroobic bacteria, Levofloxacin anddoxycyline were prescribed based on culture results. Labs ordered 10/19/2024. Vitamin D was low A1C 5.4% Wound culture from 12/07/24 was positive for Providencia stuartii, Vancomycin resistant E. Faecalis, Corynebacterium striatum and completed Augmentin orally. Follow-up: Return in 1 week for wound care follow up and have dressing changed by home health Tuesday. Return sooner or report to the emergency room should symptoms worsen, or new symptoms arise. Note: [employer] speech recognition hair tinter software was used to create portions of this document. Sound-alike and misspelled words, as well as other hair tinter errors may be contained in the documentation. 03/15/25 [id number] <Electronically signed by Patricia Garcia DO> Cosigner Signature (if applicable): CC: ~ Signed [facility] Work Phone: [phone] 203-225106-06-2025 Progress note [facility] [address] [place] [address] Progress Note - Wound Care 03/15/25 1434 MR#: [id number] Acct: [id number] Name: ESTEBAN URBINA Rep #:[id number] : 1955 69 From: Patricia Garcia DO PCP: Dr. Patricia Garcia, DO Status:REG RCR Location: History of Present Illness Date of Service: 03/15/25 Chief Complaint: venous ulcers of left lower extremity History of Wound: Mauricio is a 69 yo gentleman who is here today for evaluation of ulcers to to his bilateral lower legs. [facility]. The left LE ulcer started after he developed increased swelling and blisters of left leg in Octoberand the right leg started sometime at the end of October. He was seen at PCP's office a culture was taken and it was resistant to several antibiotics. He wastreated initially with Levaquin but had myalgias and then was treated with doxycycline which he finished 2 days ago. He denies improvementand is having swelling to his left calf and thigh. He has been having swelling to both lower extremities for many years and it has worsened over the last few chirag hs. He has not been compliant with compression. He has had increased pain especially in the left leg. He has clear yellow drainage and redness without odor or warmth. He is anti- coagulated on coumadin. He has been washing with Dial soap and witch ifrah. He had been using Collagen at times and using Calcium Alginate and covering with ABD pads during October. He was treated with 3M compression and Aquacel Ag. He was referred to the wound center for ongoing treatment. His ulcers have moderate to heavy drainage. He was in the hospital from 11/30/22 until 12/09/22 for treatment of cellulitis andedema. He underwenttreatment with Vancomycin and IV lasix and compression. Discharged on 12/09/22. He returned to his assisted living apartment on Tuesday12/21/22. Subjective Subjective Mauricio is a 69-year-old male with longstanding history of chronic venous ulcerationto the left lower extremity and now a right lower extremity venous ulcer that isnearly circumferential. There continuesto be mild improvement in both ulcers over the last week. He is more compliant with elevation but still is not compliant with compression pump frequency. Wound culture from 12/07/24 was positive for Providencia stuartii, Vancomycin resistant E. Faecalis,Corynebacterium striatum and completed Augmentin orally. His edema is better this week and he is tolerating Circaid compression. 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 He continues to use his lymphedema pumps but continues to have painwith use of these pumps. 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 Objective Data Objective Data Vital Signs: Vital Signs Temp Pulse Resp BP 96.5 F L 68 16 138/89 H 03/10/25 00:06 03/10/25 00:06 03/10/25 00:06 03/10/25 00:06 Physical Exam Const alert, oriented x3 and no apparent distress General Appearance: cooperative and comfortable HEENT normocephalic and head/scalp atraumatic Lymph Lymphatic: lymphedema moderate Resp normal respiratory effort Effort and Inspection: able to speak in complete sentences Cardio regular rate and regular rhythm Extremity Extremity Narrative: His ulcers are painful and the right lower leg remains more swollen than his left but there is goodgranulation tissue throughout and slough that is nearly completely removed post - debridement, edges of ulcers are beveled without rolled borders General Extremity: edema bilateral lower extremity Details: severe Skin General Skin Exam: venous stasis and dermatitis Wounds: wounds noted Wound Narrative: as in clinical panel, + devitalized tissue, there is increased depth, + granulation tissue bilateral ulcer with good granulation and moderate to heavy slough prior to debridement and minimalpost debridement Psych mental status grossly normal, thought process normal, cooperative and affect normal Debridement Note Debridement Note Wound debrided: left medial LE ulcer Laterality: Left Type of Debridement: Excisional debridement Anesthesia Used: 5% Lidocaine Gel and Cetacaine Depth: Down to and including healthy tissue and in the subcutaneous layer Percentage of wound debrided: 100 Instrument Used: - (Misonix ultrasonic debridement) Tissue Removed: Yellow slough, devitalized tissue Severity: Fat Layer Exposed Amount of bleeding with debridement: Mild Bleeding Controlled with: Compression and gauze Patient tolerated procedure: Patient tolerated procedure well Post-Debridement Measurements and Additional Note: Post-Debridement Measurements/Treatment WC - Nurse 1 - General Ulcer Assessment Start: 03/15/25 11:57 Freq: Status: Active Protocol: ONDINA Activity Type Activity Date Activity User E-sign Co-sign Detail Recorded Client Recorded Date Recorded By Document 03/15/25 11:57 ARPIT [id number] 03/15/25 12:01 ARPIT 03/15/25 11:57 WC - Today's Visit Information Type of service Follow-up Visit (Physician/APPLICATIONS SPECIALIST ) Arrival Mode Ambulatory, Walker Transfer Assistance Manual Patient Identification Verified (Name & Yes ) Patient Requires Transmission-Based No Precautions Pain Scale: 0-10 Numeric Is Patient Pain Free? No ble -Description Aching -Intensity 6 -Duration (hours) Acute -Pain Behavior Withdrawal from Touch -Pain Aggravating Factors Exercise/ Activity, Debridement -Alleviating Factors/Interventions Medication -Effectiveness of Alleviating Factor/ Moderately Intervention effective WC - Nurse 1 - General Ulcer Measurement Start: 03/15/25 11:57 Freq: Status: Active Protocol: Activity Type Activity Date Activity User E-sign Co-sign Detail Recorded Client Recorded Date Recorded By Document 03/15/25 11:57 ARPIT [id number] 03/15/25 12:01 ARPIT 03/15/25 11:57 Wound Center Nurse 1 #24 Left Lateral Leg -Combined with other wound No -Current Size (cm) - Length 2 -Current Size (cm) - Width 0.7 -Current Size (cm) - Depth 0.1 -Total Square Cm 1.4 -Tunneling No -Undermining/Tunneling No -Circular Undermining No -Exudate Amt Large -Exudate Type Serosanguineous -Wound Margin Distinct, Outline Attached -Granulation Amt Large (67-100%) -Granulation Quality Lingle -Slough/Fibrin Yes -Necrosis Amt Small (1-33%) -Necrotic Tissue Type Adherent Slough -Structure Exposed N/A -Texture (Marie-wound Skin Appearance) Assessed, Scarring -Moisture (Marie-wound Skin Appearance) Assessed -Color (Marie-wound Skin Appearance) Assessed -Temperature (Marie-wound Skin No Abnormality Appearance) (Pt Warm) -Tenderness on Palpation (Marie-wound No Skin Appearance) -Ulcer Cleansing Wound Cleanser -Foul Odor after Cleansing No -Anesthetic Used 5% Lidocaine Gel #22 R Medial Lateral -Combined with other wound No -Current Size (cm) - Length 11 -Current Size (cm) - Width 29 -Current Size (cm) - Depth 0.2 -Total Square Cm 319 -Tunneling No -Undermining/Tunneling No -Circular Undermining No -Exudate Amt Large -Exudate Type Serosanguineous -Wound Margin Distinct, Outline Attached -Granulation Amt Medium (34-66%) -Granulation Quality Lingle -Slough/Fibrin Yes -Necrosis Amt Small (1-33%) -Necrotic Tissue Type Adherent Slough -Structure Exposed N/A -Texture (Marie-wound Skin Appearance) Assessed, Scarring -Moisture (Marie-wound Skin Appearance) Assessed -Color (Marie-wound Skin Appearance) Assessed -Temperature (Marie-wound Skin No Abnormality Appearance) (Pt Warm) -Tenderness on Palpation (Marie-wound No Skin Appearance) -Ulcer Cleansing Wound Cleanser -Foul Odor after Cleansing No -Anesthetic Used 5% Lidocaine Gel #18 Left medial LE cluster -Combined with other wound No -Current Size (cm) - Length 8 -Current Size (cm) - Width 15 -Current Size (cm) - Depth 0.1 -Total Square Cm 120 -Tunneling No -Undermining/Tunneling No -Circular Undermining No -Exudate Amt Large -Exudate Type Serosanguineous -Wound Margin Distinct, Outline Attached -Granulation Amt Medium (34-66%) -Granulation Quality Lingle -Slough/Fibrin Yes -Necrosis Amt Medium (34-66%) -Necrotic Tissue Type Adherent Slough -Structure Exposed N/A -Texture (Marie-wound Skin Appearance) Assessed, Localized Edema ,Scarring -Moisture (Marie-wound Skin Appearance) Assessed -Color (Marie-wound Skin Appearance) Assessed -Temperature (Marie-wound Skin No Abnormality Appearance) (Pt Warm) -Tenderness on Palpation (Marie-wound No Skin Appearance) -Ulcer Cleansing Wound Cleanser -Foul Odor after Cleansing No -Anesthetic Used 5% Lidocaine Gel Lower Limb Edema Present Yes Right Calf (cm) 47 Right Ankle (cm) 31 Left Calf (cm) 44.5 Left Ankle (cm) 30.2 WC - Nurse 2 - General Ulcer CM Notes Start: 03/15/25 11:57 Freq: Status: Active Protocol: Activity Type Activity Date Activity User E-sign Co-sign Detail Recorded Client Recorded Date Recorded By Document 03/15/25 12:47 [id number] 03/15/25 12:55 03/15/25 12:47 Wound Center Nurse 2 #24 Left Lateral Leg -Time 12:47 -Correct Patient Yes -Correct Side, Site, Position Yes -Correct Procedure Yes -Procedure Performed Yes -Type of Procedure Debridement -Clinical Debridement Subcutaneous -Tissue Removed Subcutaneous -Post Debridement (cm) - Length 1.8 -Post Debridement (cm) - Width 1.0 -Post Debridement (cm) - Depth 0.1 -Total Square (Post) (cm) 1.80 -Area of Debridement (cm) - Length 1.8 -Area of Debridement (cm) - Width 1.0 -Total Square (Area) (cm) 1.80 -Tunneling No -Undermining/Tunneling No -Circular Undermining No -Wound/Ulcer Outcome Not Healed -Ulcer Cleansing Rinsed/ Irrigated with Saline -Foul Odor after Cleansing No -Bioengineered Tissue No -Bleeding Controlled with Pressure -Treatment Response Procedure Tolerated Well -Offloading No -Debridement - Subq, 1st 20sq cm No #22 R Medial Lateral -Time 12:48 -Correct Patient Yes -Correct Side, Site, Position Yes -Correct Procedure Yes -Procedure Performed Yes -Type of Procedure Debridement -Clinical Debridement Subcutaneous -Tissue Removed Subcutaneous -Post Debridement (cm) - Length 11.0 -Post Debridement (cm) - Width 25.3 -Post Debridement (cm) - Depth 0.1 -Total Square (Post) (cm) 278.30 -Area of Debridement (cm) - Length 11.0 -Area of Debridement (cm) - Width 25.3 -Total Square (Area) (cm) 278.30 -Tunneling No -Undermining/Tunneling No -Circular Undermining No -Wound/Ulcer Outcome Not Healed -Ulcer Cleansing Rinsed/ Irrigated with Saline -Foul Odor after Cleansing No -Bioengineered Tissue No -Bleeding Controlled with Pressure -Treatment Response Procedure Tolerated Well -Offloading No -Debridement - Subq, 1st 20sq cm No #18 Left medial LE cluster -Time 12:48 -Correct Patient Yes -Correct Side, Site, Position Yes -Correct Procedure Yes -Procedure Performed Yes -Type of Procedure Debridement -Clinical Debridement Subcutaneous -Tissue Removed Subcutaneous -Post Debridement (cm) - Length 8.2 -Post Debridement (cm) - Width 14.8 -Post Debridement (cm) - Depth 0.1 -Total Square (Post) (cm) 121.36 -Area of Debridement (cm) - Length 8.2 -Area of Debridement (cm) - Width 14.8 -Total Square (Area) (cm) 121.36 -Tunneling No -Undermining/Tunneling No -Circular Undermining No -Wound/Ulcer Outcome Not Healed -Ulcer Cleansing Rinsed/ Irrigated with Saline -Foul Odor after Cleansing No -Bioengineered Tissue No -Bleeding Controlled with Pressure -Treatment Response Procedure Tolerated Well -Offloading No -Debridement - Subq, 1st 20sq cm Yes -Debridement, SubQ, ea addt'l 20sq cm 19 or part thereof Pain Scale: 0-10 Numeric Is Patient Pain Free? Yes - Nurse 3 - General Ulcer D/C NN Start: 03/15/25 11:57 Freq: Status: Active Protocol: Activity Type Activity Date Activity User E-sign Co-sign Detail Recorded Client Recorded Date Recorded By Document 03/15/25 13:08 [id number] 03/15/25 13:10 03/15/25 13:08 Wound Care Center Nurse 3 #24 Left Lateral Leg -Other Dressing ABD -Primary Dressing Covered/Secured with Dry Gauze,Dry Gauze & Roll Gauze,Secured with Tape #22 R Medial Lateral -Other Dressing ABD -Primary Dressing Covered/Secured with Dry Gauze,Dry Gauze & Roll Gauze,Secured with Tape #18 Left medial LE cluster -Other Dressing ABD -Primary Dressing Covered/Secured with Dry Gauze,Dry Gauze & Roll Gauze,Secured with Tape BLE -Stockings Yes: circaid bilat Treatment Response Procedure Tolerated Well Pain Scale: 0-10 Numeric Is Patient Pain Free? Yes - Visit Discharge Discharge Condition Stable Ambulatory Status Ambulatory, Walker Transportation Private Auto Medication Reconcilliation completed & No provided to patient/care provider Clinical Summary of Care Provided Yes Additional Wound Wound debrided: right lateral leg Laterality: Right Type of Debridement: Excisional debridement Anesthesia Used: 5% Lidocaine Gel and Cetacaine Depth: Down to and including healthy tissue and in the subcutaneous layer Percentage of wound debrided: 100 Instrument Used: - (Misonix ultrasonic debridement) Tissue Removed: Yellow slough, devitalized tissue Severity: Fat Layer Exposed Amount of bleeding with debridement: Mild Bleeding Controlled with: Compression and gauze Patient tolerated procedure: Patient tolerated procedure well Additional Wound Wound debrided: right medial leg Laterality: Right Type of Debridement: Excisional debridement Anesthesia Used: 5% Lidocaine Gel and Cetacaine Depth: Down to and including healthy tissue and in the subcutaneous layer Percentage of wound debrided: 100 Instrument Used: - (Misonix ultrasonic debridement) Tissue Removed: Yellow slough, devitalized tissue Severity: Fat Layer Exposed Amount of bleeding with debridement: Mild Bleeding Controlled with: Compression and gauze Patient tolerated procedure: Patient tolerated procedure well Assessment/Plan Assessment/Plan (1) Lymphedema: CODE(S): I89.0 - Lymphedema, not elsewhere classified (2) Hypertension: CODE(S): I10 - Essential (primary) hypertension QUALIFIERS: Hypertension type: primary hypertension Qualified Code(s): I10 - Essential (primary) hypertension (3) Hyperlipidemia: CODE(S): E78.5 - Hyperlipidemia, unspecified QUALIFIERS: Hyperlipidemia type: mixed hyperlipidemia Qualified Code(s): E78.2 - Mixed hyperlipidemia (4) History of DVT (deep vein thrombosis): CODE(S): Z86.718 - Personal history of other venous thrombosis and embolism (5) Venous insufficiency (chronic) (peripheral): CODE(S): I87.2 - Venous insufficiency (chronic) (peripheral) (6) Venous ulcer of left lower extremity with varicose veins: CODE(S): I83.029 - Varicose veins of left lower extremity with ulcer of unspecified site (7) Edema: CODE(S): R60.9 - Edema, unspecified QUALIFIERS: Edema type: unspecified Qualified Code(s): R60.9 - Edema, unspecified (8) 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 At home wound-care instructions: Will use Circaid compression garments with ABDand kerlix to right LE and left LE changed every other day. Due to his chronic lymphedema and being unable to don traditional compression stockings and the presence of venous ulcers on his LE b/l, it is medically necessary for him to have Circaid compression garments. He is using Circaid compression to both legs. I suspect he is not very compliant with his l ymphedemapumps and not getting adequate compression with tubigrips. Due to the delayed progress in wound healing of his venous ulcers, we discussed applying for advanced wound healing product for healing his ulcer. Due to the size of his ulcer, Theraskin application approval was requested from his insurance as it is medically necessary for salvaging his limb and healing his ulcer. He underwent 2 applications of Theraskin to this ulcer. Since applicationof Theraskin he had much improvement in epithelialization of his ulcer even though the overall size is not significantly changed there was progress. He is using Circaid compression wraps. Off-loading: The patient was instructed to avoid pressure and friction on the affected areas. Reposition every 2 hours at minimum. Avoid prolonged standing and/or dangling of legs. When seated, feet should be elevated at chest level. Frequent ambulation is encouraged. Encouraged lymphedema pump use. Diet: Patient encouraged to increase protein intake while taking caution to avoid high carbohydrateand/or sugar intake. Labs/cultures/imaging: Wound culture showed Pseudomonas, Escherichia hermannii, Raoultella planticola, Vancomycin Resist. E. faecalis, Alcaligenes faecalis ssp faeca, Staphylococcus cohnii urealyti and anaerobic bacteria on 06/15/24 and he completed on Levofloxacin and Augmentin. Wound culture taken today on right lateral ulcer which showed Raoultella planticola, Staph hemolyticus, staph epidermidis and morganella morganii but no anaeroobic bacteria, Levofloxacin anddoxycyline were prescribed based on culture results. Labs ordered 10/19/2024. Vitamin D was low A1C 5.4% Wound culture from 12/07/24 was positive for Providencia stuartii, Vancomycin resistant E. Faecalis, Corynebacterium striatum and completed Augmentinorally. Follow-up: Return in 1 week for wound care follow up and have dressing changed by home health Tuesday. Return sooner or report to the emergency room should symptoms worsen, or new symptoms arise. Note: [employer] speech recognition hair tinter software was used to create portions of this document. Sound-alike and misspelled words, as well as other hair tinter errors may be contained in the documentation. 03/15/25 1437 Cosigner Signature (if applicable): CC: ~ Signed [facility]05-30-2025 Progress note Author Patricia Garcia [facility] Note Date/Time March 08, 2025 2:49p m [facility] [address] [place] [address] Progress Note - Wound Care 03/08/25 1446 MR#: [id number] Acct: [id number] Name: ESTEBAN URBINA Rep #:[id number] : 1955 69 From: Patricia Garcia DO PCP: Dr. Patricia Garcia, Status:REG RCR Location: History of Present Illness Date of Service: 03/08/25 Chief Complaint: venous ulcers of left lower extremity History of Wound: Mauricio is a 69 yo gentleman who is here today for evaluation of ulcers to to his bilateral lower legs. [facility]. The left LE ulcer started after he developed increased swelling and blisters of left leg in October and the right leg started sometime at the end of October. He was seen at PCP's office a culture was taken and it was resistant to several antibiotics. He was treated initially with Levaquin but had myalgias and then was treated with doxycycline which he finished 2 days ago. He denies improvementand is having swelling to his left calf and thigh. He has been having swelling to both lower extremities for many years and it has worsened over the last few months. He has not been compliant with compression. He has had increased pain especially in the left leg. He has clear yellow drainage and redness without odor or warmth. He is anti-coagulated on coumadin. He has been washing with Dial soap and witch ifrah. He had been using Collagen at times and using Calcium Alginate and covering with ABD pads during October. He was treated with 3M compression and Aquacel Ag. He was referred to the wound center for ongoing treatment. His ulcers have moderate to heavy drainage. He was in the hospital from 11/30/22 until 12/09/22 for treatment of cellulitis andedema. He underwent treatment with Vancomycin and IV lasix and compression. Discharged on 12/09/22. He returned to his assisted living apartment on Tuesday12/21/22. Subjective Subjective Mauricio is a 69-year-old male with longstanding history of chronic venous ulcerationto the left lower extremity and now a right lower extremity venous ulcer that isnearly circumferential. There continues to be mild improvement in both ulcers over the last week. He is more compliant with elevation. Wound culture from 12/07/24 was positive for Providencia stuartii, Vancomycin resistant E. Faecalis, Corynebacterium striatum and completed Augmentin orally. His edema is better this week and he is tolerating Circaid compression. 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 He continues to use his lymphedema pumps but continues to have painwith use of these pumps. 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 Objective Data Objective Data Vital Signs: Vital Signs Temp Pulse Resp BP O2 Del Method 96.5 F L 68 16 138/89 H Room Air 03/08/25 11:32 03/08/25 11:32 03/08/25 11:32 03/08/25 11:32 03/08/25 11:32 Oxygen Delivery Method Room Air Physical Exam Const alert, oriented x3 and no apparent distress General Appearance: cooperative and comfortable HEENT normocephalic and head/scalp atraumatic Lymph Lymphatic: lymphedema moderate Resp normal respiratory effort Effort and Inspection: able to speak in complete sentences Cardio regular rate and regular rhythm Extremity Extremity Narrative: His ulcers are painful and the right lower leg remains more swollen than his left but there is good granulation tissue throughout and slough that is nearly completely removed post - debridement, edges of ulcers are beveled without rolled borders General Extremity: edema bilateral lower extremity Details: severe Skin General Skin Exam: venous stasis and dermatitis Wounds: wounds noted Wound Narrative: as in clinical panel, + devitalized tissue, there is increased depth, + granulation tissue bilateral ulcer with good granulation and moderate to heavy slough prior to debridement and minimal post debridement Psych mental status grossly normal, thought process normal, cooperative and affect normal Debridement Note Debridement Note Wound debrided: left medial LE ulcer Laterality: Left Type of Debridement: Excisional debridement Anesthesia Used: 5% Lidocaine Gel and Cetacaine Depth: Down to and including healthy tissue and in the subcutaneous layer Percentage of wound debrided: 100 Instrument Used: - (Misonix ultrasonic debridement) Tissue Removed: Yellow slough, devitalized tissue Severity: Fat Layer Exposed Amount of bleeding with debridement: Mild Bleeding Controlled with: Compression and gauze Patient tolerated procedure: Patient tolerated procedure well Post-Debridement Measurements and Additional Note: Post-Debridement Measurements/Treatment - Nurse 1 - General Ulcer Assessment Start: 02/08/25 11:17 Freq: Status: Active Protocol: ONDINA Activity Type Activity Date Activity User E-sign Co-sign Detail Recorded Client Recorded Date Recorded By Document 02/08/25 11:17 KW [id number] 02/08/25 11:38 KW Document 02/15/25 11:47 KW [id number] 02/15/25 12:08 KW Document 02/22/25 10:28 KW [id number] 02/22/25 10:45 KW Document 03/01/25 11:29 DS [id number] 03/01/25 11:30 DS Document 03/08/25 11:32 KW [id number] 03/08/25 11:54 KW 02/08/25 02/15/25 02/22/25 11:17 11:47 10:28 - Today's Visit Information Type of service Follow-up Visit Follow-up Visit Follow-up Visit (Physician/APPLICATIONS SPECIALIST (Physician/APPLICATIONS SPECIALIST (Physician/APPLICATIONS SPECIALIST ) ) ) Arrival Mode Ambulatory, Ambulatory, Ambulatory, Walker Walker Walker Patient Identification Verified (Name & Yes Yes Yes ) Patient Requires Transmission-Based Precautions Safety Precautions Vital Signs Temperature (97.8 F-99.1 F) 96.1 F L Temperature Source Temporal Temporal Pulse Rate (60-100) 65 63 67 Pulse Location Monitor Monitor Monitor Respiratory Rate (12-18) 16 18 18 Respiratory rate source Observation Observation Observation Oxygen Delivery Method Room Air Room Air Room Air Blood Pressure (90/60-120/80) 143/68 H 144/75 H 117/73 Blood Pressure Mean (mm Hg) 93 98 87 Source Monitor Monitor Monitor Position Semi-Fowlers Semi-Fowlers Semi-Fowlers Blood Pressure Location Right Arm Right Arm Left Arm History Since Last Visit- (Skip if this is Patient's initial visit) Have you changed medications since your No No No last visit? Any new allergies or adverse reactions No No No Had a fall/change in ADL's that may No No No increase risk of falls Signs or symptoms of abuse and/or No No No neglect since last visit Have you been in the hospital since your No No No last visit? Has dressing in place as prescribed Yes Yes Yes Has compression in place as prescribed Yes Yes Yes Has offloadiing in place as prescribed N/A N/A N/A Experienced any changes in pain level or No No No management Left Footwear Regular Shoe Regular Shoe Regular Shoe Right Footwear Regular Shoe Regular Shoe Regular Shoe Pain Scale: 0-10 Numeric Is Patient Pain Free? Yes Yes Yes LLE -Description -Intensity -Duration (hours) -Pain Behavior -Alleviating Factors/Interventions 03/01/25 03/08/25 11:29 11:32 WC - Today's Visit Information Type of service Follow-up Visit Follow-up Visit (Physician/APPLICATIONS SPECIALIST (Physician/APPLICATIONS SPECIALIST ) ) Arrival Mode Ambulatory, Ambulatory, Walker Walker Patient Identification Verified (Name & Yes Yes ) Patient Requires Transmission-Based No Precautions Safety Precautions Fall Prevention Vital Signs Temperature (97.8 F-99.1 F) 97.0 F L 96.5 F L Temperature Source Temporal Temporal Pulse Rate (60-100) 61 68 Pulse Location Monitor Monitor Respiratory Rate (12-18) 18 16 Respiratory rate source Observation Observation Oxygen Delivery Method Room Air Room Air Blood Pressure (90/60-120/80) 146/77 H 138/89 H Blood Pressure Mean (mm Hg) 100 105 Source Monitor Monitor Position Sitting Semi-Fowlers Blood Pressure Location Right Arm Left Arm History Since Last Visit- (Skip if this is Patient's initial visit) Have you changed medications since your No No last visit? Any new allergies or adverse reactions No No Had a fall/change in ADL's that may No No increase risk of falls Signs or symptoms of abuse and/or No No neglect since last visit Have you been in the hospital since your No No last visit? Has dressing in place as prescribed Yes Yes Has compression in place as prescribed Yes Yes Has offloadiing in place as prescribed N/A N/A Experienced any changes in pain level or No No management Left Footwear Regular Shoe Regular Shoe Right Footwear Regular Shoe Regular Shoe Pain Scale: 0-10 Numeric Is Patient Pain Free? No Yes LLE -Description Sharp,Throbbing -Intensity 7 -Duration (hours) Chronic -Pain Behavior No Change in Behavior -Alleviating Factors/Interventions Will continue to monitor, Emotional Support WC - Nurse 1 - General Ulcer Measurement Start: 02/08/25 11:17 Freq: Status: Active Protocol: Activity Type Activity Date Activity User E-sign Co-sign Detail Recorded Client Recorded Date Recorded By Document 02/08/25 11:17 KW [id number] 02/08/25 11:38 KW Document 02/15/25 11:47 KW [id number] 02/15/25 12:08 KW Document 02/22/25 10:28 KW [id number] 02/22/25 10:45 KW Document 03/01/25 11:30 DS [id number] 03/01/25 11:53 DS Document 03/08/25 11:32 KW [id number] 03/08/25 11:54 KW 02/08/25 02/15/25 02/22/25 11:17 11:47 10:28 Wound Center Nurse 1 #24 Left Lateral Leg -Current Size (cm) - Length 2.7 0.1 2.3 -Current Size (cm) - Width 3.2 0.1 1.4 -Current Size (cm) - Depth 0.1 0.1 0.2 -Total Square Cm 8.64 0.01 3.22 -Date of Last Picture (Recall this 02/15/25 field) -Photo Taken -Exudate Amt Small Large Medium -Exudate Type Serosanguineous Serosanguineous Serosanguineous -Wound Margin Distinct, Distinct, Distinct, Outline Outline Outline Attached Attached Attached -Granulation Amt Medium (34-66%) Medium (34-66%) Large (67-100%) -Granulation Quality Lingle Red Red -Necrosis Amt Small (1-33%) Medium (34-66%) Small (1-33%) -Necrotic Tissue Type Adherent Slough Adherent Slough Adherent Slough -Texture (Marie-wound Skin Appearance) Assessed Assessed Assessed -Moisture (Marie-wound Skin Appearance) Assessed Assessed Assessed -Color (Marie-wound Skin Appearance) Assessed, Assessed, Assessed, Hemosiderin Hemosiderin Hemosiderin Staining Staining Staining -Temperature (Marie-wound Skin No Abnormality No Abnormality No Abnormality Appearance) (Pt Warm) (Pt Warm) (Pt Warm) -Tenderness on Palpation (Marie-wound No No No Skin Appearance) -Ulcer Cleansing Soap and Water Soap and Water Soap and Water -Foul Odor after Cleansing No No No -Anesthetic Used 5% Lidocaine 5% Lidocaine 5% Lidocaine Gel Gel Gel #22 R Medial Lateral -Current Size (cm) - Length 28 0.1 10.5 -Current Size (cm) - Width 10.5 0.1 28.5 -Current Size (cm) - Depth 0.2 0.1 0.2 -Total Square Cm 294.0 0.01 299.25 -Date of Last Picture (Recall this 02/15/25 field) -Photo Taken -Tunneling -Undermining/Tunneling -Circular Undermining -Exudate Amt Large Large Large -Exudate Type Serosanguineous Serosanguineous Serosanguineous -Wound Margin Distinct, Distinct, Thickened Outline Outline Attached Attached -Granulation Amt Large (67-100%) Medium (34-66%) Large (67-100%) -Granulation Quality Red Red Red -Necrosis Amt Medium (34-66%) Medium (34-66%) Medium (34-66%) -Necrotic Tissue Type Adherent Slough Adherent Slough Adherent Slough -Texture (Marie-wound Skin Appearance) Assessed Assessed Assessed -Moisture (Marie-wound Skin Appearance) Assessed Assessed Assessed -Color (Marie-wound Skin Appearance) Assessed, Assessed, Assessed, Hemosiderin Hemosiderin Hemosiderin Staining Staining Staining -Temperature (Marie-wound Skin No Abnormality No Abnormality No Abnormality Appearance) (Pt Warm) (Pt Warm) (Pt Warm) -Tenderness on Palpation (Marie-wound No No No Skin Appearance) -Ulcer Cleansing Soap and Water Soap and Water Soap and Water -Foul Odor after Cleansing No No No -Anesthetic Used 5% Lidocaine 5% Lidocaine 5% Lidocaine Gel Gel Gel #18 Left medial LE cluster -Current Size (cm) - Length 15 0.1 9 -Current Size (cm) - Width 8.5 0.1 13.5 -Current Size (cm) - Depth 0.2 0.1 0.2 -Total Square Cm 127.5 0.01 121.5 -Date of Last Picture (Recall this 02/15/25 field) -Photo Taken -Tunneling -Undermining/Tunneling -Circular Undermining -Exudate Amt Large Large Medium -Exudate Type Serosanguineous Serosanguineous Serosanguineous -Wound Margin Distinct, Distinct, Distinct, Outline Outline Outline Attached Attached Attached -Granulation Amt Large (67-100%) Medium (34-66%) Large (67-100%) -Granulation Quality Red Red Red -Necrosis Amt Medium (34-66%) Medium (34-66%) Small (1-33%) -Necrotic Tissue Type Adherent Slough Adherent Slough Adherent Slough -Texture (Marie-wound Skin Appearance) Assessed Assessed Assessed -Moisture (Marie-wound Skin Appearance) Assessed Assessed Assessed -Color (Marie-wound Skin Appearance) Assessed, Assessed, Assessed, Hemosiderin Erythema, Erythema, Staining Hemosiderin Hemosiderin Staining Staining -Temperature (Marie-wound Skin No Abnormality No Abnormality No Abnormality Appearance) (Pt Warm) (Pt Warm) (Pt Warm) -Tenderness on Palpation (Marie-wound No No No Skin Appearance) -Ulcer Cleansing Soap and Water Soap and Water Soap and Water -Foul Odor after Cleansing No No No -Anesthetic Used 5% Lidocaine 5% Lidocaine 5% Lidocaine Gel Gel Gel Right Calf (cm) 47.2 44.5 45 Right Ankle (cm) 30.5 30 30 Left Calf (cm) 44 42 42.5 Left Ankle (cm) 29 30 30.5 03/01/25 03/08/25 11:30 11:32 Wound Center Nurse 1 #24 Left Lateral Leg -Current Size (cm) - Length 2.0 2.5 -Current Size (cm) - Width 1.4 0.5 -Current Size (cm) - Depth 0.2 0.1 -Total Square Cm 2.80 1.25 -Date of Last Picture (Recall this field) -Photo Taken No -Exudate Amt Small -Exudate Type Serosanguineous -Wound Margin Distinct, Thickened Outline Attached -Granulation Amt Medium (34-66%) Large (67-100%) -Granulation Quality Lingle Red -Necrosis Amt Medium (34-66%) -Necrotic Tissue Type Adherent Slough -Texture (Marie-wound Skin Appearance) Assessed Assessed -Moisture (Marie-wound Skin Appearance) Assessed Assessed -Color (Marie-wound Skin Appearance) Assessed Assessed, Hemosiderin Staining -Temperature (Marie-wound Skin No Abnormality No Abnormality Appearance) (Pt Warm) (Pt Warm) -Tenderness on Palpation (Marie-wound No No Skin Appearance) -Ulcer Cleansing Soap and Water Soap and Water -Foul Odor after Cleansing No No -Anesthetic Used 5% Lidocaine 5% Lidocaine Gel Gel #22 R Medial Lateral -Current Size (cm) - Length 11.5 11 -Current Size (cm) - Width 29.0 28 -Current Size (cm) - Depth 0.2 0.2 -Total Square Cm 333.50 308 -Date of Last Picture (Recall this field) -Photo Taken No -Tunneling No -Undermining/Tunneling No -Circular Undermining No -Exudate Amt Medium -Exudate Type Serosanguineous -Wound Margin Distinct, Thickened Outline Attached -Granulation Amt Medium (34-66%) Large (67-100%) -Granulation Quality Lingle Red -Necrosis Amt Medium (34-66%) Small (1-33%) -Necrotic Tissue Type Adherent Slough Adherent Slough -Texture (Marie-wound Skin Appearance) Assessed Assessed -Moisture (Marie-wound Skin Appearance) Assessed Assessed -Color (Marie-wound Skin Appearance) Assessed Assessed, Hemosiderin Staining -Temperature (Marie-wound Skin No Abnormality No Abnormality Appearance) (Pt Warm) (Pt Warm) -Tenderness on Palpation (Marie-wound No No Skin Appearance) -Ulcer Cleansing Soap and Water Soap and Water -Foul Odor after Cleansing No No -Anesthetic Used 5% Lidocaine 5% Lidocaine Gel Gel #18 Left medial LE cluster -Current Size (cm) - Length 14.5 8.5 -Current Size (cm) - Width 8.0 14.5 -Current Size (cm) - Depth 0.2 0.2 -Total Square Cm 116.00 123.25 -Date of Last Picture (Recall this field) -Photo Taken No -Tunneling No -Undermining/Tunneling No -Circular Undermining No -Exudate Amt Medium -Exudate Type Serosanguineous -Wound Margin Distinct, Distinct, Outline Outline Attached Attached -Granulation Amt Medium (34-66%) Medium (34-66%) -Granulation Quality Lingle Red -Necrosis Amt Medium (34-66%) Medium (34-66%) -Necrotic Tissue Type Adherent Slough Adherent Slough -Texture (Marie-wound Skin Appearance) Assessed Assessed -Moisture (Marie-wound Skin Appearance) Assessed Assessed -Color (Marie-wound Skin Appearance) Assessed Assessed, Hemosiderin Staining -Temperature (Marie-wound Skin No Abnormality No Abnormality Appearance) (Pt Warm) (Pt Warm) -Tenderness on Palpation (Marie-wound No No Skin Appearance) -Ulcer Cleansing Soap and Water Soap and Water -Foul Odor after Cleansing No No -Anesthetic Used 5% Lidocaine 5% Lidocaine Gel Gel Right Calf (cm) 45.6 46.2 Right Ankle (cm) 30.5 31 Left Calf (cm) 41.2 44.5 Left Ankle (cm) 31.8 30.8 WC - Nurse 2 - General Ulcer CM Notes Start: 02/08/25 11:17 Freq: Status: Active Protocol: Activity Type Activity Date Activity User E-sign Co-sign Detail Recorded Client Recorded Date Recorded By Document 02/08/25 12:03 [id number] 02/08/25 12:16 Document 02/15/25 12:48 [id number] 02/15/25 13:01 Document 02/22/25 11:20 [id number] 02/22/25 11:32 Document 03/01/25 12:08 [id number] 03/01/25 12:25 Document 03/08/25 12:15 [id number] 03/08/25 12:31 02/08/25 02/15/25 02/22/25 12:03 12:48 11:20 Wound Center Nurse 2 #24 Left Lateral Leg -Time 12:03 12:48 11:21 -Correct Patient Yes Yes Yes -Correct Side, Site, Position Yes Yes Yes -Correct Procedure Yes Yes Yes -Procedure Performed Yes Yes Yes -Type of Procedure Debridement Debridement Debridement -Clinical Debridement Subcutaneous Subcutaneous Subcutaneous -Tissue Removed Subcutaneous Subcutaneous Subcutaneous -Post Debridement (cm) - Length 2.4 2.1 2.3 -Post Debridement (cm) - Width 1.6 1.3 1.5 -Post Debridement (cm) - Depth 0.1 0.1 0.1 -Total Square (Post) (cm) 3.84 2.73 3.45 -Area of Debridement (cm) - Length 2.4 2.1 2.3 -Area of Debridement (cm) - Width 1.6 1.3 1.5 -Total Square (Area) (cm) 3.84 2.73 3.45 -Tunneling No No No -Undermining/Tunneling No No No -Circular Undermining No No No -Wound/Ulcer Outcome Not Healed Not Healed Not Healed -Ulcer Cleansing Rinsed/ Rinsed/ Rinsed/ Irrigated with Irrigated with Irrigated with Saline Saline Saline -Foul Odor after Cleansing No No No -Bioengineered Tissue No No No -Bleeding Controlled with Pressure Pressure Pressure -Treatment Response Procedure Procedure Procedure Tolerated Well Tolerated Well Tolerated Well -Offloading No No No -Assistive Device(s) Walker -Debridement - Subq, 1st 20sq cm No No No #22 R Medial Lateral -Time 12:04 12:48 11:21 -Correct Patient Yes Yes Yes -Correct Side, Site, Position Yes Yes Yes -Correct Procedure Yes Yes Yes -Procedure Performed Yes Yes Yes -Type of Procedure Debridement Debridement Debridement -Clinical Debridement Subcutaneous Subcutaneous Subcutaneous -Tissue Removed Subcutaneous Subcutaneous Subcutaneous -Post Debridement (cm) - Length 11.8 11.5 11.5 -Post Debridement (cm) - Width 27.0 26.0 27.0 -Post Debridement (cm) - Depth 0.1 0.1 0.1 -Total Square (Post) (cm) 318.60 299.00 310.50 -Area of Debridement (cm) - Length 11.8 11.5 -Area of Debridement (cm) - Width 27.0 27.0 -Total Square (Area) (cm) 318.60 310.50 -Tunneling No No No -Undermining/Tunneling No No No -Circular Undermining No No No -Wound/Ulcer Outcome Not Healed Not Healed Not Healed -Ulcer Cleansing Rinsed/ Rinsed/ Rinsed/ Irrigated with Irrigated with Irrigated with Saline Saline Saline -Foul Odor after Cleansing No No No -Bioengineered Tissue No No No -Bleeding Controlled with Pressure Pressure Pressure -Treatment Response Procedure Procedure Procedure Tolerated Well Tolerated Well Tolerated Well -Offloading No No No -Assistive Device(s) Walker -Debridement - Subq, 1st 20sq cm No No No #18 Left medial LE cluster -Time 12:04 12:49 11:22 -Correct Patient Yes Yes Yes -Correct Side, Site, Position Yes Yes Yes -Correct Procedure Yes Yes Yes -Procedure Performed Yes Yes Yes -Type of Procedure Debridement Debridement Debridement -Clinical Debridement Subcutaneous Subcutaneous Subcutaneous -Tissue Removed Subcutaneous Subcutaneous Subcutaneous -Post Debridement (cm) - Length 8.5 8.5 8.6 -Post Debridement (cm) - Width 12.8 12.9 12.8 -Post Debridement (cm) - Depth 0.1 0.1 0.1 -Total Square (Post) (cm) 108.80 109.65 110.08 -Area of Debridement (cm) - Length 8.5 8.5 8.6 -Area of Debridement (cm) - Width 12.8 12.9 12.8 -Total Square (Area) (cm) 108.80 109.65 110.08 -Tunneling No No No -Undermining/Tunneling No No No -Circular Undermining No No No -Wound/Ulcer Outcome Not Healed Not Healed Not Healed -Ulcer Cleansing Rinsed/ Rinsed/ Rinsed/ Irrigated with Irrigated with Irrigated with Saline Saline Saline -Foul Odor after Cleansing No No No -Bioengineered Tissue No No No -Bleeding Controlled with Pressure Pressure Pressure -Treatment Response Procedure Procedure Procedure Tolerated Well Tolerated Well Tolerated Well -Offloading No No No -Debridement - Subq, 1st 20sq cm Yes Yes Yes -Debridement, SubQ, ea addt'l 20sq cm 21 20 21 or part thereof Pain Scale: 0-10 Numeric Is Patient Pain Free? Yes Yes Yes 03/01/25 03/08/25 12:08 12:15 Wound Center Nurse 2 #24 Left Lateral Leg -Time 12:08 12:18 -Correct Patient Yes Yes -Correct Side, Site, Position Yes Yes -Correct Procedure Yes Yes -Procedure Performed Yes Yes -Type of Procedure Debridement Debridement -Clinical Debridement Subcutaneous Subcutaneous -Tissue Removed Subcutaneous Subcutaneous -Post Debridement (cm) - Length 2.0 3.0 -Post Debridement (cm) - Width 1.2 2.0 -Post Debridement (cm) - Depth 0.1 0.1 -Total Square (Post) (cm) 2.40 6.00 -Area of Debridement (cm) - Length 2.0 3.0 -Area of Debridement (cm) - Width 1.2 2.0 -Total Square (Area) (cm) 2.40 6.00 -Tunneling No No -Undermining/Tunneling No No -Circular Undermining No No -Wound/Ulcer Outcome Not Healed Not Healed -Ulcer Cleansing Rinsed/ Rinsed/ Irrigated with Irrigated with Saline Saline -Foul Odor after Cleansing No No -Bioengineered Tissue No No -Bleeding Controlled with Pressure Pressure -Treatment Response Procedure Procedure Tolerated Well Tolerated Well -Offloading No -Assistive Device(s) Walker -Debridement - Subq, 1st 20sq cm No No #22 R Medial Lateral -Time 12: 12:19 -Correct Patient Yes Yes -Correct Side, Site, Position Yes Yes -Correct Procedure Yes Yes -Procedure Performed Yes Yes -Type of Procedure Debridement Debridement -Clinical Debridement Subcutaneous Subcutaneous -Tissue Removed Subcutaneous Subcutaneous -Post Debridement (cm) - Length 11.0 10.6 -Post Debridement (cm) - Width 26.3 24.7 -Post Debridement (cm) - Depth 0.1 0.1 -Total Square (Post) (cm) 289.30 261.82 -Area of Debridement (cm) - Length 11.0 10.6 -Area of Debridement (cm) - Width 26.3 24.7 -Total Square (Area) (cm) 289.30 261.82 -Tunneling No No -Undermining/Tunneling No No -Circular Undermining No No -Wound/Ulcer Outcome Not Healed Not Healed -Ulcer Cleansing Rinsed/ Rinsed/ Irrigated with Irrigated with Saline Saline -Foul Odor after Cleansing No No -Bioengineered Tissue No No -Bleeding Controlled with Pressure Pressure -Treatment Response Procedure Procedure Tolerated Well Tolerated Well -Offloading No No -Assistive Device(s) -Debridement - Subq, 1st 20sq cm No No #18 Left medial LE cluster -Time 12: 12:19 -Correct Patient Yes Yes -Correct Side, Site, Position Yes Yes -Correct Procedure Yes Yes -Procedure Performed Yes Yes -Type of Procedure Debridement Debridement -Clinical Debridement Subcutaneous Subcutaneous -Tissue Removed Subcutaneous Subcutaneous -Post Debridement (cm) - Length 8.5 8.5 -Post Debridement (cm) - Width 13.5 13.3 -Post Debridement (cm) - Depth 0.1 0.1 -Total Square (Post) (cm) 114.75 113.05 -Area of Debridement (cm) - Length 8.5 8.5 -Area of Debridement (cm) - Width 13.5 13.3 -Total Square (Area) (cm) 114.75 113.05 -Tunneling No No -Undermining/Tunneling No No -Circular Undermining No No -Wound/Ulcer Outcome Not Healed Not Healed -Ulcer Cleansing Rinsed/ Rinsed/ Irrigated with Irrigated with Saline Saline -Foul Odor after Cleansing No No -Bioengineered Tissue No No -Bleeding Controlled with Pressure Pressure -Treatment Response Procedure Procedure Tolerated Well Tolerated Well -Offloading No -Debridement - Subq, 1st 20sq cm Yes Yes -Debridement, SubQ, ea addt'l 20sq cm 20 19 or part thereof Pain Scale: 0-10 Numeric Is Patient Pain Free? Yes Yes WC - Nurse 3 - General Ulcer D/C NN Start: 02/08/25 11:17 Freq: Status: Active Protocol: Activity Type Activity Date Activity User E-sign Co-sign Detail Recorded Client Recorded Date Recorded By Document 02/08/25 12:41 RB [id number] 02/08/25 12:44 RB Document 03/01/25 12:32 DS [id number] 03/01/25 12:48 DS Edit Result 03/01/25 12:32 DS (1) [id number] 03/01/25 12:57 DS Document 03/08/25 13:08 KW [id number] 03/08/25 13:08 KW (1) #22 R Medial Lateral - Optilok 6.5x10 1 => 2 #18 Left medial LE cluster - Optilok 6.5x10 1 => 0 02/08/25 03/01/25 03/08/25 12:41 12:32 13:08 Wound Care Center Nurse 3 #24 Left Lateral Leg -Ulcer Cleansing Rinsed/ Irrigated with Saline -Primary Dressing Applied Aquacel Extra Optilok 6.5x10 -Other Dressing ABD -Primary Dressing Covered/Secured with Dry Gauze & Dry Gauze Roll Gauze, Secured with Tape -Aquacel Extra 1 -Optilok 6.5x10 1 #22 R Medial Lateral -Ulcer Cleansing Rinsed/ Irrigated with Saline -Primary Dressing Applied Aquacel Extra, Optilok 6.5x10 Optilok 6.5x10 -Primary Dressing Covered/Secured with Dry Gauze & Dry Gauze & Roll Gauze, Roll Gauze, Secured with Secured with Tape Tape -Aquacel Extra 1 -Optilok 6.5x10 1 2 #18 Left medial LE cluster -Ulcer Cleansing Rinsed/ Irrigated with Saline -Primary Dressing Applied Aquacel Extra, Optilok 6.5x10 Optilok 6.5x10 -Primary Dressing Covered/Secured with Dry Gauze & Dry Gauze & Roll Gauze, Roll Gauze, Secured with Secured with Tape Tape -Aquacel Extra 1 -Optilok 6.5x10 1 0 BLE -Stockings Yes: pt own circaids -Other CIRCAIDES pt own circaides Treatment Response Procedure Tolerated Well Pain Scale: 0-10 Numeric Is Patient Pain Free? Yes Yes Yes WC - Visit Discharge Discharge Condition Stable Stable Stable Ambulatory Status Ambulatory, Ambulatory, Ambulatory, Walker Walker Walker Transportation Private Auto Private Auto Medication Reconcilliation completed & No No provided to patient/care provider Clinical Summary of Care Provided Yes Yes Additional Wound Wound debrided: right lateral leg Laterality: Right Type of Debridement: Excisional debridement Anesthesia Used: 5% Lidocaine Gel and Cetacaine Depth: Down to and including healthy tissue and in the subcutaneous layer Percentage of wound debrided: 100 Instrument Used: - (Misonix ultrasonic debridement) Tissue Removed: Yellow slough, devitalized tissue Severity: Fat Layer Exposed Amount of bleeding with debridement: Mild Bleeding Controlled with: Compression and gauze Patient tolerated procedure: Patient tolerated procedure well Additional Wound Wound debrided: right medial leg Laterality: Right Type of Debridement: Excisional debridement Anesthesia Used: 5% Lidocaine Gel and Cetacaine Depth: Down to and including healthy tissue and in the subcutaneous layer Percentage of wound debrided: 100 Instrument Used: - (Misonix ultrasonic debridement) Tissue Removed: Yellow slough, devitalized tissue Severity: Fat Layer Exposed Amount of bleeding with debridement: Mild Bleeding Controlled with: Compression and gauze Patient tolerated procedure: Patient tolerated procedure well Assessment/Plan Assessment/Plan (1) Lymphedema: CODE(S): I89.0 - Lymphedema, not elsewhere classified (2) Hypertension: CODE(S): I10 - Essential (primary) hypertension QUALIFIERS: Hypertension type: primary hypertension Qualified Code(s): I10 - Essential (primary) hypertension (3) Hyperlipidemia: CODE(S): E78.5 - Hyperlipidemia, unspecified QUALIFIERS: Hyperlipidemia type: mixed hyperlipidemia Qualified Code(s): E78.2 - Mixed hyperlipidemia (4) History of DVT (deep vein thrombosis): CODE(S): Z86.718 - Personal history of other venous thrombosis and embolism (5) Venous insufficiency (chronic) (peripheral): CODE(S): I87.2 - Venous insufficiency (chronic) (peripheral) (6) Venous ulcer of left lower extremity with varicose veins: CODE(S): I83.029 - Varicose veins of left lower extremity with ulcer of unspecified site (7) Edema: CODE(S): R60.9 - Edema, unspecified QUALIFIERS: Edema type: unspecified Qualified Code(s): R60.9 - Edema, unspecified (8) 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 At home wound-care instructions: Will use Circaid compression garments with ABDand kerlix to right LE and left LE changed every other day. Due to his chronic lymphedema and being unable to don traditional compression stockings and the presence of venous ulcers on his LE b/l, it is medically necessary for him to have Circaid compression garments. He is using Circaid compression to both legs. I suspect he is not very compliant with his lymphedemapumps and not getting adequate compression with tubigrips. Due to the delayed progress in wound healing of his venous ulcers, we discussed applying for advanced wound healing product for healing his ulcer. Due to the size of his ulcer, Theraskin application approval was requested from his insurance as it is medically necessary for salvaging his limb and healing his ulcer. He underwent 2 applications of Theraskin to this ulcer. Since applicationof Theraskin he had much improvement in epithelialization of his ulcer even though the overall size is not significantly changed there was progress. He is using Circaid compression wraps. Off-loading: The patient was instructed to avoid pressure and friction on the affected areas. Reposition every 2 hours at minimum. Avoid prolonged standing and/or dangling of legs. When seated, feet should be elevated at chest level. Frequent ambulation is encouraged. Encouraged lymphedema pump use. Diet: Patient encouraged to increase protein intake while taking caution to avoid high carbohydrate and/or sugar intake. Labs/cultures/imaging: Wound culture showed Pseudomonas, Escherichia hermannii, Raoultella planticola, Vancomycin Resist. E. faecalis, Alcaligenes faecalis ssp faeca, Staphylococcus cohnii urealyti and anaerobic bacteria on 06/15/24 and he completed on Levofloxacin and Augmentin. Wound culture taken today on right lateral ulcer which showed Raoultella planticola, Staph hemolyticus, staph epidermidis and morganella morganii but no anaeroobic bacteria, Levofloxacin anddoxycyline were prescribed based on culture results. Labs ordered 10/19/2024. Vitamin D was low A1C 5.4% Wound culture from 12/07/24 was positive for Providencia stuartii, Vancomycin resistant E. Faecalis, Corynebacterium striatum and completed Augmentin orally. Follow-up: Return in 1 week for wound care follow up and have dressing changed by home health Tuesday. Return sooner or report to the emergency room should symptoms worsen, or new symptoms arise. Note: [employer] speech recognition hair tinter software was used to create portions of this document. Sound-alike and misspelled words, as well as other hair tinter errors may be contained in the documentation. 03/08/25 1449 <Electronically signed by Patricia Garcia DO> Cosigner Signature (if applicable): CC: ~ Signed [facility] Work Phone: [phone] Progress note [facility] [address] [place] [id number] Progress Note - Wound Care 03/08/25 1446 MR#: [id number] Acct: [id number] Name: ESTEBAN URBINA Rep #:[id number] : 1955 69 From: Patricia Garcia DO PCP: Dr. Patricia Garcia, DO Status:REG RCR Location: History of Present Illness Date of Service: 03/08/25 Chief Complaint: venous ulcers of left lower extremity History of Wound: Mauricio is a 69 yo gentleman who is here today for evaluation of ulcers to to his bilateral lower legs. [facility]. The left LE ulcer started after he developed increased swelling and blisters of left leg in Octoberand the right leg started sometime at the end of October. He was seen at PCP's office a culture was taken and it was resistant to several antibiotics. He wastreated initially with Levaquin but had myalgias and then was treated with doxycycline which he finished 2 days ago. He denies improvementand is having swelling to his left calf and thigh. He has been having swelling to both lower extremities for many years and it has worsened over the last few chirag hs. He has not been compliant with compression. He has had increased pain especially in the left leg. He has clear yellow drainage and redness without odor or warmth. He is anti- coagulated on coumadin. He has been washing with Dial soap and witch ifrah. He had been using Collagen at times and using Calcium Alginate and covering with ABD pads during October. He was treated with 3M compression and Aquacel Ag. He was referred to the wound center for ongoing treatment. His ulcers have moderate to heavy drainage. He was in the hospital from 11/30/22 until 12/09/22 for treatment of cellulitis andedema. He underwenttreatment with Vancomycin and IV lasix and compression. Discharged on 12/09/22. He returned to his assisted living apartment on Tuesday12/21/22. Subjective Subjective Mauricio is a 69-year-old male with longstanding history of chronic venous ulcerationto the left lower extremity and now a right lower extremity venous ulcer that isnearly circumferential. There continuesto be mild improvement in both ulcers over the last week. He is more compliant with elevation. Wound culture from 12/07/24 was positive for Providencia stuartii, Vancomycin resistant E. Faecalis,Corynebacterium striatum and completed Augmentin orally. His edema is better this week and he is tolerating Circaid compression. 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 He continues to use his lymphedema pumps but continues to have painwith use of these pumps. 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 Objective Data Objective Data Vital Signs: Vital Signs Temp Pulse Resp BP O2 Del Method 96.5 F L 68 16 138/89 H Room Air 03/08/25 11:32 03/08/25 11:32 03/08/25 11:32 03/08/25 11:32 03/08/25 11:32 Oxygen Delivery Method Room Air Physical Exam Const alert, oriented x3 and no apparent distress General Appearance: cooperative and comfortable HEENT normocephalic and head/scalp atraumatic Lymph Lymphatic: lymphedema moderate Resp normal respiratory effort Effort and Inspection: able to speak in complete sentences Cardio regular rate and regular rhythm Extremity Extremity Narrative: His ulcers are painful and the right lower leg remains more swollen than his left but there is goodgranulation tissue throughout and slough that is nearly completely removed post - debridement, edges of ulcers are beveled without rolled borders General Extremity: edema bilateral lower extremity Details: severe Skin General Skin Exam: venous stasis and dermatitis Wounds: wounds noted Wound Narrative: as in clinical panel, + devitalized tissue, there is increased depth, + granulation tissue bilateral ulcer with good granulation and moderate to heavy slough prior to debridement and minimalpost debridement Psych mental status grossly normal, thought process normal, cooperative and affect normal Debridement Note Debridement Note Wound debrided: left medial LE ulcer Laterality: Left Type of Debridement: Excisional debridement Anesthesia Used: 5% Lidocaine Gel and Cetacaine Depth: Down to and including healthy tissue and in the subcutaneous layer Percentage of wound debrided: 100 Instrument Used: - (Misonix ultrasonic debridement) Tissue Removed: Yellow slough, devitalized tissue Severity: Fat Layer Exposed Amount of bleeding with debridement: Mild Bleeding Controlled with: Compression and gauze Patient tolerated procedure: Patient tolerated procedure well Post-Debridement Measurements and Additional Note: Post-Debridement Measurements/Treatment WC - Nurse 1 - General Ulcer Assessment Start: 02/08/25 11:17 Freq: Status: Active Protocol: ONDINA Activity Type Activity Date Activity User E-sign Co-sign Detail Recorded Client Recorded Date Recorded By Document 02/08/25 11:17 KW [id number] 02/08/25 11:38 KW Document 02/15/25 11:47 KW [id number] 02/15/25 12:08 KW Document 02/22/25 10:28 KW [id number] 02/22/25 10:45 KW Document 03/01/25 11:29 DS [id number] 03/01/25 11:30 DS Document 03/08/25 11:32 KW [id number] 03/08/25 11:54 KW 02/08/25 02/15/25 02/22/25 11:17 11:47 10:28 WC - Today's Visit Information Type of service Follow-up Visit Follow-up Visit Follow-up Visit (Physician/APPLICATIONS SPECIALIST (Physician/APPLICATIONS SPECIALIST (Physician/APPLICATIONS SPECIALIST ) ) ) Arrival Mode Ambulatory, Ambulatory, Ambulatory, Walker Walker Walker Patient Identification Verified (Name & Yes Yes Yes ) Patient Requires Transmission-Based Precautions Safety Precautions Vital Signs Temperature (97.8 F-99.1 F) 96.1 F L Temperature Source Temporal Temporal Pulse Rate (60-100) 65 63 67 Pulse Location Monitor Monitor Monitor Respiratory Rate (12-18) 16 18 18 Respiratory rate source Observation Observation Observation Oxygen Delivery Method Room Air Room Air Room Air Blood Pressure (90/60-120/80) 143/68 H 144/75 H 117/73 Blood Pressure Mean (mm Hg) 93 98 87 Source Monitor Monitor Monitor Position Semi-Fowlers Semi-Fowlers Semi-Fowlers Blood Pressure Location Right Arm Right Arm Left Arm History Since Last Visit- (Skip if this is Patient's initial visit) Have you changed medications since your No No No last visit? Any new allergies or adverse reactions No No No Had a fall/change in ADL's that may No No No increase risk of falls Signs or symptoms of abuse and/or No No No neglect since last visit Have you been in the hospital since your No No No last visit? Has dressing in place as prescribed Yes Yes Yes Has compression in place as prescribed Yes Yes Yes Has offloadiing in place as prescribed N/A N/A N/A Experienced any changes in pain level or No No No management Left Footwear Regular Shoe Regular Shoe Regular Shoe Right Footwear Regular Shoe Regular Shoe Regular Shoe Pain Scale: 0-10 Numeric Is Patient Pain Free? Yes Yes Yes LLE -Description -Intensity -Duration (hours) -Pain Behavior -Alleviating Factors/Interventions 03/01/25 03/08/25 11:29 11:32 WC - Today's Visit Information Type of service Follow-up Visit Follow-up Visit (Physician/APPLICATIONS SPECIALIST (Physician/APPLICATIONS SPECIALIST ) ) Arrival Mode Ambulatory, Ambulatory, Walker Walker Patient Identification Verified (Name & Yes Yes ) Patient Requires Transmission-Based No Precautions Safety Precautions Fall Prevention Vital Signs Temperature (97.8 F-99.1 F) 97.0 F L 96.5 F L Temperature Source Temporal Temporal Pulse Rate (60-100) 61 68 Pulse Location Monitor Monitor Respiratory Rate (12-18) 18 16 Respiratory rate source Observation Observation Oxygen Delivery Method Room Air Room Air Blood Pressure (90/60-120/80) 146/77 H 138/89 H Blood Pressure Mean (mm Hg) 100 105 Source Monitor Monitor Position Sitting Semi-Fowlers Blood Pressure Location Right Arm Left Arm History Since Last Visit- (Skip if this is Patient's initial visit) Have you changed medications since your No No last visit? Any new allergies or adverse reactions No No Had a fall/change in ADL's that may No No increase risk of falls Signs or symptoms of abuse and/or No No neglect since last visit Have you been in the hospital since your No No last visit? Has dressing in place as prescribed Yes Yes Has compression in place as prescribed Yes Yes Has offloadiing in place as prescribed N/A N/A Experienced any changes in pain level or No No management Left Footwear Regular Shoe Regular Shoe Right Footwear Regular Shoe Regular Shoe Pain Scale: 0-10 Numeric Is Patient Pain Free? No Yes LLE -Description Sharp,Throbbing -Intensity 7 -Duration (hours) Chronic -Pain Behavior No Change in Behavior -Alleviating Factors/Interventions Will continue to monitor, Emotional Support WC - Nurse 1 - General Ulcer Measurement Start: 02/08/25 11:17 Freq: Status: Active Protocol: Activity Type Activity Date Activity User E-sign Co-sign Detail Recorded Client Recorded Date Recorded By Document 02/08/25 11:17 KW [id number] 02/08/25 11:38 KW Document 02/15/25 11:47 KW [id number] 02/15/25 12:08 KW Document 02/22/25 10:28 KW [id number] 02/22/25 10:45 KW Document 03/01/25 11:30 DS [id number] 03/01/25 11:53 DS Document 03/08/25 11:32 KW [id number] 03/08/25 11:54 KW 02/08/25 02/15/25 02/22/25 11:17 11:47 10:28 Wound Center Nurse 1 #24 Left Lateral Leg -Current Size (cm) - Length 2.7 0.1 2.3 -Current Size (cm) - Width 3.2 0.1 1.4 -Current Size (cm) - Depth 0.1 0.1 0.2 -Total Square Cm 8.64 0.01 3.22 -Date of Last Picture (Recall this 02/15/25 field) -Photo Taken -Exudate Amt Small Large Medium -Exudate Type Serosanguineous Serosanguineous Serosanguineous -Wound Margin Distinct, Distinct, Distinct, Outline Outline Outline Attached Attached Attached -Granulation Amt Medium (34-66%) Medium (34-66%) Large (67-100%) -Granulation Quality Lingle Red Red -Necrosis Amt Small (1-33%) Medium (34-66%) Small (1-33%) -Necrotic Tissue Type Adherent Slough Adherent Slough Adherent Slough -Texture (Marie-wound Skin Appearance) Assessed Assessed Assessed -Moisture (Marie-wound Skin Appearance) Assessed Assessed Assessed -Color (Marie-wound Skin Appearance) Assessed, Assessed, Assessed, Hemosiderin Hemosiderin Hemosiderin Staining Staining Staining -Temperature (Marie-wound Skin No Abnormality No Abnormality No Abnormality Appearance) (Pt Warm) (Pt Warm) (Pt Warm) -Tenderness on Palpation (Marie-wound No No No Skin Appearance) -Ulcer Cleansing Soap and Water Soap and Water Soap and Water -Foul Odor after Cleansing No No No -Anesthetic Used 5% Lidocaine 5% Lidocaine 5% Lidocaine Gel Gel Gel #22 R Medial Lateral -Current Size (cm) - Length 28 0.1 10.5 -Current Size (cm) - Width 10.5 0.1 28.5 -Current Size (cm) - Depth 0.2 0.1 0.2 -Total Square Cm 294.0 0.01 299.25 -Date of Last Picture (Recall this 02/15/25 field) -Photo Taken -Tunneling -Undermining/Tunneling -Circular Undermining -Exudate Amt Large Large Large -Exudate Type Serosanguineous Serosanguineous Serosanguineous -Wound Margin Distinct, Distinct, Thickened Outline Outline Attached Attached -Granulation Amt Large (67-100%) Medium (34-66%) Large (67-100%) -Granulation Quality Red Red Red -Necrosis Amt Medium (34-66%) Medium (34-66%) Medium (34-66%) -Necrotic Tissue Type Adherent Slough Adherent Slough Adherent Slough -Texture (Marie-wound Skin Appearance) Assessed Assessed Assessed -Moisture (Marie-wound Skin Appearance) Assessed Assessed Assessed -Color (Marie-wound Skin Appearance) Assessed, Assessed, Assessed, Hemosiderin Hemosiderin Hemosiderin Staining Staining Staining -Temperature (Marie-wound Skin No Abnormality No Abnormality No Abnormality Appearance) (Pt Warm) (Pt Warm) (Pt Warm) -Tenderness on Palpation (Marie-wound No No No Skin Appearance) -Ulcer Cleansing Soap and Water Soap and Water Soap and Water -Foul Odor after Cleansing No No No -Anesthetic Used 5% Lidocaine 5% Lidocaine 5% Lidocaine Gel Gel Gel #18 Left medial LE cluster -Current Size (cm) - Length 15 0.1 9 -Current Size (cm) - Width 8.5 0.1 13.5 -Current Size (cm) - Depth 0.2 0.1 0.2 -Total Square Cm 127.5 0.01 121.5 -Date of Last Picture (Recall this 02/15/25 field) -Photo Taken -Tunneling -Undermining/Tunneling -Circular Undermining -Exudate Amt Large Large Medium -Exudate Type Serosanguineous Serosanguineous Serosanguineous -Wound Margin Distinct, Distinct, Distinct, Outline Outline Outline Attached Attached Attached -Granulation Amt Large (67-100%) Medium (34-66%) Large (67-100%) -Granulation Quality Red Red Red -Necrosis Amt Medium (34-66%) Medium (34-66%) Small (1-33%) -Necrotic Tissue Type Adherent Slough Adherent Slough Adherent Slough -Texture (Marie-wound Skin Appearance) Assessed Assessed Assessed -Moisture (Marie-wound Skin Appearance) Assessed Assessed Assessed -Color (Marie-wound Skin Appearance) Assessed, Assessed, Assessed, Hemosiderin Erythema, Erythema, Staining Hemosiderin Hemosiderin Staining Staining -Temperature (Marie-wound Skin No Abnormality No Abnormality No Abnormality Appearance) (Pt Warm) (Pt Warm) (Pt Warm) -Tenderness on Palpation (Marie-wound No No No Skin Appearance) -Ulcer Cleansing Soap and Water Soap and Water Soap and Water -Foul Odor after Cleansing No No No -Anesthetic Used 5% Lidocaine 5% Lidocaine 5% Lidocaine Gel Gel Gel Right Calf (cm) 47.2 44.5 45 Right Ankle (cm) 30.5 30 30 Left Calf (cm) 44 42 42.5 Left Ankle (cm) 29 30 30.5 03/01/25 03/08/25 11:30 11:32 Wound Center Nurse 1 #24 Left Lateral Leg -Current Size (cm) - Length 2.0 2.5 -Current Size (cm) - Width 1.4 0.5 -Current Size (cm) - Depth 0.2 0.1 -Total Square Cm 2.80 1.25 -Date of Last Picture (Recall this field) -Photo Taken No -Exudate Amt Small -Exudate Type Serosanguineous -Wound Margin Distinct, Thickened Outline Attached -Granulation Amt Medium (34-66%) Large (67-100%) -Granulation Quality Lingle Red -Necrosis Amt Medium (34-66%) -Necrotic Tissue Type Adherent Slough -Texture (Marie-wound Skin Appearance) Assessed Assessed -Moisture (Marie-wound Skin Appearance) Assessed Assessed -Color (Marie-wound Skin Appearance) Assessed Assessed, Hemosiderin Staining -Temperature (Marie-wound Skin No Abnormality No Abnormality Appearance) (Pt Warm) (Pt Warm) -Tenderness on Palpation (Marie-wound No No Skin Appearance) -Ulcer Cleansing Soap and Water Soap and Water -Foul Odor after Cleansing No No -Anesthetic Used 5% Lidocaine 5% Lidocaine Gel Gel #22 R Medial Lateral -Current Size (cm) - Length 11.5 11 -Current Size (cm) - Width 29.0 28 -Current Size (cm) - Depth 0.2 0.2 -Total Square Cm 333.50 308 -Date of Last Picture (Recall this field) -Photo Taken No -Tunneling No -Undermining/Tunneling No -Circular Undermining No -Exudate Amt Medium -Exudate Type Serosanguineous -Wound Margin Distinct, Thickened Outline Attached -Granulation Amt Medium (34-66%) Large (67-100%) -Granulation Quality Lingle Red -Necrosis Amt Medium (34-66%) Small (1-33%) -Necrotic Tissue Type Adherent Slough Adherent Slough -Texture (Marie-wound Skin Appearance) Assessed Assessed -Moisture (Marie-wound Skin Appearance) Assessed Assessed -Color (Marie-wound Skin Appearance) Assessed Assessed, Hemosiderin Staining -Temperature (Marie-wound Skin No Abnormality No Abnormality Appearance) (Pt Warm) (Pt Warm) -Tenderness on Palpation (Marie-wound No No Skin Appearance) -Ulcer Cleansing Soap and Water Soap and Water -Foul Odor after Cleansing No No -Anesthetic Used 5% Lidocaine 5% Lidocaine Gel Gel #18 Left medial LE cluster -Current Size (cm) - Length 14.5 8.5 -Current Size (cm) - Width 8.0 14.5 -Current Size (cm) - Depth 0.2 0.2 -Total Square Cm 116.00 123.25 -Date of Last Picture (Recall this field) -Photo Taken No -Tunneling No -Undermining/Tunneling No -Circular Undermining No -Exudate Amt Medium -Exudate Type Serosanguineous -Wound Margin Distinct, Distinct, Outline Outline Attached Attached -Granulation Amt Medium (34-66%) Medium (34-66%) -Granulation Quality Lingle Red -Necrosis Amt Medium (34-66%) Medium (34-66%) -Necrotic Tissue Type Adherent Slough Adherent Slough -Texture (Marie-wound Skin Appearance) Assessed Assessed -Moisture (Marie-wound Skin Appearance) Assessed Assessed -Color (Marie-wound Skin Appearance) Assessed Assessed, Hemosiderin Staining -Temperature (Marie-wound Skin No Abnormality No Abnormality Appearance) (Pt Warm) (Pt Warm) -Tenderness on Palpation (Marie-wound No No Skin Appearance) -Ulcer Cleansing Soap and Water Soap and Water -Foul Odor after Cleansing No No -Anesthetic Used 5% Lidocaine 5% Lidocaine Gel Gel Right Calf (cm) 45.6 46.2 Right Ankle (cm) 30.5 31 Left Calf (cm) 41.2 44.5 Left Ankle (cm) 31.8 30.8 WC - Nurse 2 - General Ulcer CM Notes Start: 02/08/25 11:17 Freq: Status: Active Protocol: Activity Type Activity Date Activity User E-sign Co-sign Detail Recorded Client Recorded Date Recorded By Document 02/08/25 12:03 [id number] 02/08/25 12:16 Document 02/15/25 12:48 [id number] 02/15/25 13:01 Document 02/22/25 11:20 [id number] 02/22/25 11:32 Document 03/01/25 12:08 [id number] 03/01/25 12:25 Document 03/08/25 12:15 [id number] 03/08/25 12:31 02/08/25 02/15/25 02/22/25 12:03 12:48 11:20 Wound Center Nurse 2 #24 Left Lateral Leg -Time 12:03 12:48 11:21 -Correct Patient Yes Yes Yes -Correct Side, Site, Position Yes Yes Yes -Correct Procedure Yes Yes Yes -Procedure Performed Yes Yes Yes -Type of Procedure Debridement Debridement Debridement -Clinical Debridement Subcutaneous Subcutaneous Subcutaneous -Tissue Removed Subcutaneous Subcutaneous Subcutaneous -Post Debridement (cm) - Length 2.4 2.1 2.3 -Post Debridement (cm) - Width 1.6 1.3 1.5 -Post Debridement (cm) - Depth 0.1 0.1 0.1 -Total Square (Post) (cm) 3.84 2.73 3.45 -Area of Debridement (cm) - Length 2.4 2.1 2.3 -Area of Debridement (cm) - Width 1.6 1.3 1.5 -Total Square (Area) (cm) 3.84 2.73 3.45 -Tunneling No No No -Undermining/Tunneling No No No -Circular Undermining No No No -Wound/Ulcer Outcome Not Healed Not Healed Not Healed -Ulcer Cleansing Rinsed/ Rinsed/ Rinsed/ Irrigated with Irrigated with Irrigated with Saline Saline Saline -Foul Odor after Cleansing No No No -Bioengineered Tissue No No No -Bleeding Controlled with Pressure Pressure Pressure -Treatment Response Procedure Procedure Procedure Tolerated Well Tolerated Well Tolerated Well -Offloading No No No -Assistive Device(s) Walker -Debridement - Subq, 1st 20sq cm No No No #22 R Medial Lateral -Time 12:04 12:48 11:21 -Correct Patient Yes Yes Yes -Correct Side, Site, Position Yes Yes Yes -Correct Procedure Yes Yes Yes -Procedure Performed Yes Yes Yes -Type of Procedure Debridement Debridement Debridement -Clinical Debridement Subcutaneous Subcutaneous Subcutaneous -Tissue Removed Subcutaneous Subcutaneous Subcutaneous -Post Debridement (cm) - Length 11.8 11.5 11.5 -Post Debridement (cm) - Width 27.0 26.0 27.0 -Post Debridement (cm) - Depth 0.1 0.1 0.1 -Total Square (Post) (cm) 318.60 299.00 310.50 -Area of Debridement (cm) - Length 11.8 11.5 -Area of Debridement (cm) - Width 27.0 27.0 -Total Square (Area) (cm) 318.60 310.50 -Tunneling No No No -Undermining/Tunneling No No No -Circular Undermining No No No -Wound/Ulcer Outcome Not Healed Not Healed Not Healed -Ulcer Cleansing Rinsed/ Rinsed/ Rinsed/ Irrigated with Irrigated with Irrigated with Saline Saline Saline -Foul Odor after Cleansing No No No -Bioengineered Tissue No No No -Bleeding Controlled with Pressure Pressure Pressure -Treatment Response Procedure Procedure Procedure Tolerated Well Tolerated Well Tolerated Well -Offloading No No No -Assistive Device(s) Walker -Debridement - Subq, 1st 20sq cm No No No #18 Left medial LE cluster -Time 12:04 12:49 11:22 -Correct Patient Yes Yes Yes -Correct Side, Site, Position Yes Yes Yes -Correct Procedure Yes Yes Yes -Procedure Performed Yes Yes Yes -Type of Procedure Debridement Debridement Debridement -Clinical Debridement Subcutaneous Subcutaneous Subcutaneous -Tissue Removed Subcutaneous Subcutaneous Subcutaneous -Post Debridement (cm) - Length 8.5 8.5 8.6 -Post Debridement (cm) - Width 12.8 12.9 12.8 -Post Debridement (cm) - Depth 0.1 0.1 0.1 -Total Square (Post) (cm) 108.80 109.65 110.08 -Area of Debridement (cm) - Length 8.5 8.5 8.6 -Area of Debridement (cm) - Width 12.8 12.9 12.8 -Total Square (Area) (cm) 108.80 109.65 110.08 -Tunneling No No No -Undermining/Tunneling No No No -Circular Undermining No No No -Wound/Ulcer Outcome Not Healed Not Healed Not Healed -Ulcer Cleansing Rinsed/ Rinsed/ Rinsed/ Irrigated with Irrigated with Irrigated with Saline Saline Saline -Foul Odor after Cleansing No No No -Bioengineered Tissue No No No -Bleeding Controlled with Pressure Pressure Pressure -Treatment Response Procedure Procedure Procedure Tolerated Well Tolerated Well Tolerated Well -Offloading No No No -Debridement - Subq, 1st 20sq cm Yes Yes Yes -Debridement, SubQ, ea addt'l 20sq cm 21 20 21 or part thereof Pain Scale: 0-10 Numeric Is Patient Pain Free? Yes Yes Yes 03/01/25 03/08/25 12:08 12:15 Wound Center Nurse 2 #24 Left Lateral Leg -Time 12:08 12:18 -Correct Patient Yes Yes -Correct Side, Site, Position Yes Yes -Correct Procedure Yes Yes -Procedure Performed Yes Yes -Type of Procedure Debridement Debridement -Clinical Debridement Subcutaneous Subcutaneous -Tissue Removed Subcutaneous Subcutaneous -Post Debridement (cm) - Length 2.0 3.0 -Post Debridement (cm) - Width 1.2 2.0 -Post Debridement (cm) - Depth 0.1 0.1 -Total Square (Post) (cm) 2.40 6.00 -Area of Debridement (cm) - Length 2.0 3.0 -Area of Debridement (cm) - Width 1.2 2.0 -Total Square (Area) (cm) 2.40 6.00 -Tunneling No No -Undermining/Tunneling No No -Circular Undermining No No -Wound/Ulcer Outcome Not Healed Not Healed -Ulcer Cleansing Rinsed/ Rinsed/ Irrigated with Irrigated with Saline Saline -Foul Odor after Cleansing No No -Bioengineered Tissue No No -Bleeding Controlled with Pressure Pressure -Treatment Response Procedure Procedure Tolerated Well Tolerated Well -Offloading No -Assistive Device(s) Walker -Debridement - Subq, 1st 20sq cm No No #22 R Medial Lateral -Time 12:09 12:19 -Correct Patient Yes Yes -Correct Side, Site, Position Yes Yes -Correct Procedure Yes Yes -Procedure Performed Yes Yes -Type of Procedure Debridement Debridement -Clinical Debridement Subcutaneous Subcutaneous -Tissue Removed Subcutaneous Subcutaneous -Post Debridement (cm) - Length 11.0 10.6 -Post Debridement (cm) - Width 26.3 24.7 -Post Debridement (cm) - Depth 0.1 0.1 -Total Square (Post) (cm) 289.30 261.82 -Area of Debridement (cm) - Length 11.0 10.6 -Area of Debridement (cm) - Width 26.3 24.7 -Total Square (Area) (cm) 289.30 261.82 -Tunneling No No -Undermining/Tunneling No No -Circular Undermining No No -Wound/Ulcer Outcome Not Healed Not Healed -Ulcer Cleansing Rinsed/ Rinsed/ Irrigated with Irrigated with Saline Saline -Foul Odor after Cleansing No No -Bioengineered Tissue No No -Bleeding Controlled with Pressure Pressure -Treatment Response Procedure Procedure Tolerated Well Tolerated Well -Offloading No No -Assistive Device(s) -Debridement - Subq, 1st 20sq cm No No #18 Left medial LE cluster -Time 12:09 12:19 -Correct Patient Yes Yes -Correct Side, Site, Position Yes Yes -Correct Procedure Yes Yes -Procedure Performed Yes Yes -Type of Procedure Debridement Debridement -Clinical Debridement Subcutaneous Subcutaneous -Tissue Removed Subcutaneous Subcutaneous -Post Debridement (cm) - Length 8.5 8.5 -Post Debridement (cm) - Width 13.5 13.3 -Post Debridement (cm) - Depth 0.1 0.1 -Total Square (Post) (cm) 114.75 113.05 -Area of Debridement (cm) - Length 8.5 8.5 -Area of Debridement (cm) - Width 13.5 13.3 -Total Square (Area) (cm) 114.75 113.05 -Tunneling No No -Undermining/Tunneling No No -Circular Undermining No No -Wound/Ulcer Outcome Not Healed Not Healed -Ulcer Cleansing Rinsed/ Rinsed/ Irrigated with Irrigated with Saline Saline -Foul Odor after Cleansing No No -Bioengineered Tissue No No -Bleeding Controlled with Pressure Pressure -Treatment Response Procedure Procedure Tolerated Well Tolerated Well -Offloading No -Debridement - Subq, 1st 20sq cm Yes Yes -Debridement, SubQ, ea addt'l 20sq cm 20 19 or part thereof Pain Scale: 0-10 Numeric Is Patient Pain Free? Yes Yes WC - Nurse 3 - General Ulcer D/C NN Start: 02/08/25 11:17 Freq: Status: Active Protocol: Activity Type Activity Date Activity User E-sign Co-sign Detail Recorded Client Recorded Date Recorded By Document 02/08/25 12:41 RB [id number] 02/08/25 12:44 RB Document 03/01/25 12:32 DS [id number] 03/01/25 12:48 DS Edit Result 03/01/25 12:32 DS (1) [id number] 03/01/25 12:57 DS Document 03/08/25 13:08 KW [id number] 03/08/25 13:08 KW (1) #22 R Medial Lateral - Optilok 6.5x10 1 => 2 #18 Left medial LE cluster - Optilok 6.5x10 1 => 0 02/08/25 03/01/25 03/08/25 12:41 12:32 13:08 Wound Care Center Nurse 3 #24 Left Lateral Leg -Ulcer Cleansing Rinsed/ Irrigated with Saline -Primary Dressing Applied Aquacel Extra Optilok 6.5x10 -Other Dressing ABD -Primary Dressing Covered/Secured with Dry Gauze & Dry Gauze Roll Gauze, Secured with Tape -Aquacel Extra 1 -Optilok 6.5x10 1 #22 R Medial Lateral -Ulcer Cleansing Rinsed/ Irrigated with Saline -Primary Dressing Applied Aquacel Extra, Optilok 6.5x10 Optilok 6.5x10 -Primary Dressing Covered/Secured with Dry Gauze & Dry Gauze & Roll Gauze, Roll Gauze, Secured with Secured with Tape Tape -Aquacel Extra 1 -Optilok 6.5x10 1 2 #18 Left medial LE cluster -Ulcer Cleansing Rinsed/ Irrigated with Saline -Primary Dressing Applied Aquacel Extra, Optilok 6.5x10 Optilok 6.5x10 -Primary Dressing Covered/Secured with Dry Gauze & Dry Gauze & Roll Gauze, Roll Gauze, Secured with Secured with Tape Tape -Aquacel Extra 1 -Optilok 6.5x10 1 0 BLE -Stockings Yes: pt own circaids -Other CIRCAIDES pt own circaides Treatment Response Procedure Tolerated Well Pain Scale: 0-10 Numeric Is Patient Pain Free? Yes Yes Yes WC - Visit Discharge Discharge Condition Stable Stable Stable Ambulatory Status Ambulatory, Ambulatory, Ambulatory, Walker Walker Walker Transportation Private Auto Private Auto Medication Reconcilliation completed & No No provided to patient/care provider Clinical Summary of Care Provided Yes Yes Additional Wound Wound debrided: right lateral leg Laterality: Right Type of Debridement: Excisional debridement Anesthesia Used: 5% Lidocaine Gel and Cetacaine Depth: Down to and including healthy tissue and in the subcutaneous layer Percentage of wound debrided: 100 Instrument Used: - (Misonix ultrasonic debridement) Tissue Removed: Yellow slough, devitalized tissue Severity: Fat Layer Exposed Amount of bleeding with debridement: Mild Bleeding Controlled with: Compression and gauze Patient tolerated procedure: Patient tolerated procedure well Additional Wound Wound debrided: right medial leg Laterality: Right Type of Debridement: Excisional debridement Anesthesia Used: 5% Lidocaine Gel and Cetacaine Depth: Down to and including healthy tissue and in the subcutaneous layer Percentage of wound debrided: 100 Instrument Used: - (Misonix ultrasonic debridement) Tissue Removed: Yellow slough, devitalized tissue Severity: Fat Layer Exposed Amount of bleeding with debridement: Mild Bleeding Controlled with: Compression and gauze Patient tolerated procedure: Patient tolerated procedure well Assessment/Plan Assessment/Plan (1) Lymphedema: CODE(S): I89.0 - Lymphedema, not elsewhere classified (2) Hypertension: CODE(S): I10 - Essential (primary) hypertension QUALIFIERS: Hypertension type: primary hypertension Qualified Code(s): I10 - Essential (primary) hypertension (3) Hyperlipidemia: CODE(S): E78.5 - Hyperlipidemia, unspecified QUALIFIERS: Hyperlipidemia type: mixed hyperlipidemia Qualified Code(s): E78.2 - Mixed hyperlipidemia (4) History of DVT (deep vein thrombosis): CODE(S): Z86.718 - Personal history of other venous thrombosis and embolism (5) Venous insufficiency (chronic) (peripheral): CODE(S): I87.2 - Venous insufficiency (chronic) (peripheral) (6) Venous ulcer of left lower extremity with varicose veins: CODE(S): I83.029 - Varicose veins of left lower extremity with ulcer of unspecified site (7) Edema: CODE(S): R60.9 - Edema, unspecified QUALIFIERS: Edema type: unspecified Qualified Code(s): R60.9 - Edema, unspecified (8) 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 At home wound-care instructions: Will use Circaid compression garments with ABDand kerlix to right LE and left LE changed every other day. Due to his chronic lymphedema and being unable to don traditional compression stockings and the presence of venous ulcers on his LE b/l, it is medically necessary for him to have Circaid compression garments. He is using Circaid compression to both legs. I suspect he is not very compliant with his l ymphedemapumps and not getting adequate compression with tubigrips. Due to the delayed progress in wound healing of his venous ulcers, we discussed applying for advanced wound healing product for healing his ulcer. Due to the size of his ulcer, Theraskin application approval was requested from his insurance as it is medically necessary for salvaging his limb and healing his ulcer. He underwent 2 applications of Theraskin to this ulcer. Since applicationof Theraskin he had much improvement in epithelialization of his ulcer even though the overall size is not significantly changed there was progress. He is using Circaid compression wraps. Off-loading: The patient was instructed to avoid pressure and friction on the affected areas. Reposition every 2 hours at minimum. Avoid prolonged standing and/or dangling of legs. When seated, feet should be elevated at chest level. Frequent ambulation is encouraged. Encouraged lymphedema pump use. Diet: Patient encouraged to increase protein intake while taking caution to avoid high carbohydrateand/or sugar intake. Labs/cultures/imaging: Wound culture showed Pseudomonas, Escherichia hermannii, Raoultella planticola, Vancomycin Resist. E. faecalis, Alcaligenes faecalis ssp faeca, Staphylococcus cohnii urealyti and anaerobic bacteria on 06/15/24 and he completed on Levofloxacin and Augmentin. Wound culture taken today on right lateral ulcer which showed Raoultella planticola, Staph hemolyticus, staph epidermidis and morganella morganii but no anaeroobic bacteria, Levofloxacin anddoxycyline were prescribed based on culture results. Labs ordered 10/19/2024. Vitamin D was low A1C 5.4% Wound culture from 12/07/24 was positive for Providencia stuartii, Vancomycin resistant E. Faecalis, Corynebacterium striatum and completed Augmentinorally. Follow-up: Return in 1 week for wound care follow up and have dressing changed by home health Tuesday. Return sooner or report to the emergency room should symptoms worsen, or new symptoms arise. Note: [employer] speech recognition hair tinter software was used to create portions of this document. Sound-alike and misspelled words, as well as other hair tinter errors may be contained in the documentation. 05/30/25 1009 Cosigner Signature (if applicable): CC: ~ Signed [facility]05-23-2025 Progress note Author Patricia Garcia [facility] Note Date/Time March 01, 2025 1:35p m [facility] [address] [place] [address] Progress Note - Wound Care 03/01/25 1332 MR#: [id number] Acct: [id number] Name: ESTEBAN URBINA Rep #:[id number] : 1955 69 From: Patricia Garcia DO PCP: Dr. Patricia Garcia, DO Status:REG RCR Location: History of Present Illness Date of Service: 03/01/25 Chief Complaint: venous ulcers of left lower extremity History of Wound: Mauricio is a 69 yo gentleman who is here today for evaluation of ulcers to to his bilateral lower legs. [facility]. The left LE ulcer started after he developed increased swelling and blisters of left leg in October and the right leg started sometime at the end of October. He was seen at PCP's office a culture was taken and it was resistant to several antibiotics. He was treated initially with Levaquin but had myalgias and then was treated with doxycycline which he finished 2 days ago. He denies improvementand is having swelling to his left calf and thigh. He has been having swelling to both lower extremities for many years and it has worsened over the last few months. He has not been compliant with compression. He has had increased pain especially in the left leg. He has clear yellow drainage and redness without odor or warmth. He is anti-coagulated on coumadin. He has been washing with Dial soap and witch ifrah. He had been using Collagen at times and using Calcium Alginate and covering with ABD pads during October. He was treated with 3M compression and Aquacel Ag. He was referred to the wound center for ongoing treatment. His ulcers have moderate to heavy drainage. He was in the hospital from 11/30/22 until 12/09/22 for treatment of cellulitis andedema. He underwent treatment with Vancomycin and IV lasix and compression. Discharged on 12/09/22. He returned to his assisted living apartment on Tuesday12/21/22. Subjective Subjective Mauricio is a 69-year-old male with longstanding history of chronic venous ulcerationto the left lower extremity and now a right lower extremity venous ulcer that isnearly circumferential. There continues to be mild improvement in both ulcers over the last week. He is more compliant with elevation. Wound culture from 12/07/24 was positive for Providencia stuartii, Vancomycin resistant E. Faecalis, Corynebacterium striatum and completed Augmentin orally. His edema is better this week and he is tolerating Circaid compression. 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 He continues to use his lymphedema pumps but continues to have painwith use of these pumps. 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 Objective Data Objective Data Vital Signs: Vital Signs Temp Pulse Resp BP O2 Del Method 97.0 F L 61 18 146/77 H Room Air 03/01/25 11:29 03/01/25 11:29 03/01/25 11:29 03/01/25 11:29 03/01/25 11:29 Oxygen Delivery Method Room Air Physical Exam Const alert, oriented x3 and no apparent distress General Appearance: cooperative and comfortable HEENT normocephalic and head/scalp atraumatic Lymph Lymphatic: lymphedema moderate Resp normal respiratory effort Effort and Inspection: able to speak in complete sentences Cardio regular rate and regular rhythm Extremity Extremity Narrative: His ulcers are painful and the right lower leg remains more swollen than his left but there is good granulation tissue throughout and slough that is nearly completely removed post - debridement, edges of ulcers are beveled without rolled borders General Extremity: edema bilateral lower extremity Details: severe Skin General Skin Exam: venous stasis and dermatitis Wounds: wounds noted Wound Narrative: as in clinical panel, + devitalized tissue, there is increased depth, + granulation tissue bilateral ulcer with good granulation and moderate to heavy slough prior to debridement and minimal post debridement Psych mental status grossly normal, thought process normal, cooperative and affect normal Debridement Note Debridement Note Wound debrided: left medial LE ulcer Laterality: Left Type of Debridement: Excisional debridement Anesthesia Used: 5% Lidocaine Gel and Cetacaine Depth: Down to and including healthy tissue and in the subcutaneous layer Percentage of wound debrided: 100 Instrument Used: - (Misonix ultrasonic debridement) Tissue Removed: Yellow slough, devitalized tissue Severity: Fat Layer Exposed Amount of bleeding with debridement: Mild Bleeding Controlled with: Compression and gauze Patient tolerated procedure: Patient tolerated procedure well Post-Debridement Measurements and Additional Note: Post-Debridement Measurements/Treatment - Nurse 1 - General Ulcer Assessment Start: 02/08/25 11:17 Freq: Status: Active Protocol: ONDINA Activity Type Activity Date Activity User E-sign Co-sign Detail Recorded Client Recorded Date Recorded By Document 02/08/25 11:17 KW [id number] 02/08/25 11:38 KW Document 02/15/25 11:47 KW [id number] 02/15/25 12:08 KW Document 02/22/25 10:28 KW [id number] 02/22/25 10:45 KW Document 03/01/25 11:29 DS [id number] 03/01/25 11:30 DS 02/08/25 02/15/25 02/22/25 11:17 11:47 10:28 - Today's Visit Information Type of service Follow-up Visit Follow-up Visit Follow-up Visit (Physician/APPLICATIONS SPECIALIST (Physician/APPLICATIONS SPECIALIST (Physician/APPLICATIONS SPECIALIST ) ) ) Arrival Mode Ambulatory, Ambulatory, Ambulatory, Walker Walker Walker Patient Identification Verified (Name & Yes Yes Yes ) Patient Requires Transmission-Based Precautions Safety Precautions Vital Signs Temperature (97.8 F-99.1 F) 96.1 F L Temperature Source Temporal Temporal Pulse Rate (60-100) 65 63 67 Pulse Location Monitor Monitor Monitor Respiratory Rate (12-18) 16 18 18 Respiratory rate source Observation Observation Observation Oxygen Delivery Method Room Air Room Air Room Air Blood Pressure (90/60-120/80) 143/68 H 144/75 H 117/73 Blood Pressure Mean (mm Hg) 93 98 87 Source Monitor Monitor Monitor Position Semi-Fowlers Semi-Fowlers Semi-Fowlers Blood Pressure Location Right Arm Right Arm Left Arm History Since Last Visit- (Skip if this is Patient's initial visit) Have you changed medications since your No No No last visit? Any new allergies or adverse reactions No No No Had a fall/change in ADL's that may No No No increase risk of falls Signs or symptoms of abuse and/or No No No neglect since last visit Have you been in the hospital since your No No No last visit? Has dressing in place as prescribed Yes Yes Yes Has compression in place as prescribed Yes Yes Yes Has offloadiing in place as prescribed N/A N/A N/A Experienced any changes in pain level or No No No management Left Footwear Regular Shoe Regular Shoe Regular Shoe Right Footwear Regular Shoe Regular Shoe Regular Shoe Pain Scale: 0-10 Numeric Is Patient Pain Free? Yes Yes Yes LLE -Description -Intensity -Duration (hours) -Pain Behavior -Alleviating Factors/Interventions 03/01/25 11:29 WC - Today's Visit Information Type of service Follow-up Visit (Physician/APPLICATIONS SPECIALIST ) Arrival Mode Ambulatory, Walker Patient Identification Verified (Name & Yes ) Patient Requires Transmission-Based No Precautions Safety Precautions Fall Prevention Vital Signs Temperature (97.8 F-99.1 F) 97.0 F L Temperature Source Temporal Pulse Rate (60-100) 61 Pulse Location Monitor Respiratory Rate (12-18) 18 Respiratory rate source Observation Oxygen Delivery Method Room Air Blood Pressure (90/60-120/80) 146/77 H Blood Pressure Mean (mm Hg) 100 Source Monitor Position Sitting Blood Pressure Location Right Arm History Since Last Visit- (Skip if this is Patient's initial visit) Have you changed medications since your No last visit? Any new allergies or adverse reactions No Had a fall/change in ADL's that may No increase risk of falls Signs or symptoms of abuse and/or No neglect since last visit Have you been in the hospital since your No last visit? Has dressing in place as prescribed Yes Has compression in place as prescribed Yes Has offloadiing in place as prescribed N/A Experienced any changes in pain level or No management Left Footwear Regular Shoe Right Footwear Regular Shoe Pain Scale: 0-10 Numeric Is Patient Pain Free? No LLE -Description Sharp,Throbbing -Intensity 7 -Duration (hours) Chronic -Pain Behavior No Change in Behavior -Alleviating Factors/Interventions Will continue to monitor, Emotional Support - Nurse 1 - General Ulcer Measurement Start: 02/08/25 11:17 Freq: Status: Active Protocol: Activity Type Activity Date Activity User E-sign Co-sign Detail Recorded Client Recorded Date Recorded By Document 02/08/25 11:17 KW [id number] 02/08/25 11:38 KW Document 02/15/25 11:47 KW [id number] 02/15/25 12:08 KW Document 02/22/25 10:28 KW [id number] 02/22/25 10:45 KW Document 03/01/25 11:30 DS [id number] 03/01/25 11:53 DS 02/08/25 02/15/25 02/22/25 11:17 11:47 10:28 Wound Center Nurse 1 #24 Left Lateral Leg -Current Size (cm) - Length 2.7 0.1 2.3 -Current Size (cm) - Width 3.2 0.1 1.4 -Current Size (cm) - Depth 0.1 0.1 0.2 -Total Square Cm 8.64 0.01 3.22 -Date of Last Picture (Recall this 02/15/25 field) -Photo Taken -Exudate Amt Small Large Medium -Exudate Type Serosanguineous Serosanguineous Serosanguineous -Wound Margin Distinct, Distinct, Distinct, Outline Outline Outline Attached Attached Attached -Granulation Amt Medium (34-66%) Medium (34-66%) Large (67-100%) -Granulation Quality Lingle Red Red -Necrosis Amt Small (1-33%) Medium (34-66%) Small (1-33%) -Necrotic Tissue Type Adherent Slough Adherent Slough Adherent Slough -Texture (Marie-wound Skin Appearance) Assessed Assessed Assessed -Moisture (Marie-wound Skin Appearance) Assessed Assessed Assessed -Color (Marie-wound Skin Appearance) Assessed, Assessed, Assessed, Hemosiderin Hemosiderin Hemosiderin Staining Staining Staining -Temperature (Marie-wound Skin No Abnormality No Abnormality No Abnormality Appearance) (Pt Warm) (Pt Warm) (Pt Warm) -Tenderness on Palpation (Marie-wound No No No Skin Appearance) -Ulcer Cleansing Soap and Water Soap and Water Soap and Water -Foul Odor after Cleansing No No No -Anesthetic Used 5% Lidocaine 5% Lidocaine 5% Lidocaine Gel Gel Gel #22 R Medial Lateral -Current Size (cm) - Length 28 0.1 10.5 -Current Size (cm) - Width 10.5 0.1 28.5 -Current Size (cm) - Depth 0.2 0.1 0.2 -Total Square Cm 294.0 0.01 299.25 -Date of Last Picture (Recall this 02/15/25 field) -Photo Taken -Tunneling -Undermining/Tunneling -Circular Undermining -Exudate Amt Large Large Large -Exudate Type Serosanguineous Serosanguineous Serosanguineous -Wound Margin Distinct, Distinct, Thickened Outline Outline Attached Attached -Granulation Amt Large (67-100%) Medium (34-66%) Large (67-100%) -Granulation Quality Red Red Red -Necrosis Amt Medium (34-66%) Medium (34-66%) Medium (34-66%) -Necrotic Tissue Type Adherent Slough Adherent Slough Adherent Slough -Texture (Marie-wound Skin Appearance) Assessed Assessed Assessed -Moisture (Marie-wound Skin Appearance) Assessed Assessed Assessed -Color (Marie-wound Skin Appearance) Assessed, Assessed, Assessed, Hemosiderin Hemosiderin Hemosiderin Staining Staining Staining -Temperature (Marie-wound Skin No Abnormality No Abnormality No Abnormality Appearance) (Pt Warm) (Pt Warm) (Pt Warm) -Tenderness on Palpation (Marie-wound No No No Skin Appearance) -Ulcer Cleansing Soap and Water Soap and Water Soap and Water -Foul Odor after Cleansing No No No -Anesthetic Used 5% Lidocaine 5% Lidocaine 5% Lidocaine Gel Gel Gel #18 Left medial LE cluster -Current Size (cm) - Length 15 0.1 9 -Current Size (cm) - Width 8.5 0.1 13.5 -Current Size (cm) - Depth 0.2 0.1 0.2 -Total Square Cm 127.5 0.01 121.5 -Date of Last Picture (Recall this 02/15/25 field) -Photo Taken -Tunneling -Undermining/Tunneling -Circular Undermining -Exudate Amt Large Large Medium -Exudate Type Serosanguineous Serosanguineous Serosanguineous -Wound Margin Distinct, Distinct, Distinct, Outline Outline Outline Attached Attached Attached -Granulation Amt Large (67-100%) Medium (34-66%) Large (67-100%) -Granulation Quality Red Red Red -Necrosis Amt Medium (34-66%) Medium (34-66%) Small (1-33%) -Necrotic Tissue Type Adherent Slough Adherent Slough Adherent Slough -Texture (Marie-wound Skin Appearance) Assessed Assessed Assessed -Moisture (Marie-wound Skin Appearance) Assessed Assessed Assessed -Color (Marie-wound Skin Appearance) Assessed, Assessed, Assessed, Hemosiderin Erythema, Erythema, Staining Hemosiderin Hemosiderin Staining Staining -Temperature (Marie-wound Skin No Abnormality No Abnormality No Abnormality Appearance) (Pt Warm) (Pt Warm) (Pt Warm) -Tenderness on Palpation (Marie-wound No No No Skin Appearance) -Ulcer Cleansing Soap and Water Soap and Water Soap and Water -Foul Odor after Cleansing No No No -Anesthetic Used 5% Lidocaine 5% Lidocaine 5% Lidocaine Gel Gel Gel Right Calf (cm) 47.2 44.5 45 Right Ankle (cm) 30.5 30 30 Left Calf (cm) 44 42 42.5 Left Ankle (cm) 29 30 30.5 03/01/25 11:30 Wound Center Nurse 1 #24 Left Lateral Leg -Current Size (cm) - Length 2.0 -Current Size (cm) - Width 1.4 -Current Size (cm) - Depth 0.2 -Total Square Cm 2.80 -Date of Last Picture (Recall this field) -Photo Taken No -Exudate Amt -Exudate Type -Wound Margin Distinct, Outline Attached -Granulation Amt Medium (34-66%) -Granulation Quality Lingle -Necrosis Amt Medium (34-66%) -Necrotic Tissue Type Adherent Slough -Texture (Marie-wound Skin Appearance) Assessed -Moisture (Marie-wound Skin Appearance) Assessed -Color (Marie-wound Skin Appearance) Assessed -Temperature (Marie-wound Skin No Abnormality Appearance) (Pt Warm) -Tenderness on Palpation (Marie-wound No Skin Appearance) -Ulcer Cleansing Soap and Water -Foul Odor after Cleansing No -Anesthetic Used 5% Lidocaine Gel #22 R Medial Lateral -Current Size (cm) - Length 11.5 -Current Size (cm) - Width 29.0 -Current Size (cm) - Depth 0.2 -Total Square Cm 333.50 -Date of Last Picture (Recall this field) -Photo Taken No -Tunneling No -Undermining/Tunneling No -Circular Undermining No -Exudate Amt -Exudate Type -Wound Margin Distinct, Outline Attached -Granulation Amt Medium (34-66%) -Granulation Quality Lingle -Necrosis Amt Medium (34-66%) -Necrotic Tissue Type Adherent Slough -Texture (Marie-wound Skin Appearance) Assessed -Moisture (Marie-wound Skin Appearance) Assessed -Color (Marie-wound Skin Appearance) Assessed -Temperature (Marie-wound Skin No Abnormality Appearance) (Pt Warm) -Tenderness on Palpation (Marie-wound No Skin Appearance) -Ulcer Cleansing Soap and Water -Foul Odor after Cleansing No -Anesthetic Used 5% Lidocaine Gel #18 Left medial LE cluster -Current Size (cm) - Length 14.5 -Current Size (cm) - Width 8.0 -Current Size (cm) - Depth 0.2 -Total Square Cm 116.00 -Date of Last Picture (Recall this field) -Photo Taken No -Tunneling No -Undermining/Tunneling No -Circular Undermining No -Exudate Amt -Exudate Type -Wound Margin Distinct, Outline Attached -Granulation Amt Medium (34-66%) -Granulation Quality Lingle -Necrosis Amt Medium (34-66%) -Necrotic Tissue Type Adherent Slough -Texture (Marie-wound Skin Appearance) Assessed -Moisture (Marie-wound Skin Appearance) Assessed -Color (Marie-wound Skin Appearance) Assessed -Temperature (Marie-wound Skin No Abnormality Appearance) (Pt Warm) -Tenderness on Palpation (Marie-wound No Skin Appearance) -Ulcer Cleansing Soap and Water -Foul Odor after Cleansing No -Anesthetic Used 5% Lidocaine Gel Right Calf (cm) 45.6 Right Ankle (cm) 30.5 Left Calf (cm) 41.2 Left Ankle (cm) 31.8 WC - Nurse 2 - General Ulcer CM Notes Start: 02/08/25 11:17 Freq: Status: Active Protocol: Activity Type Activity Date Activity User E-sign Co-sign Detail Recorded Client Recorded Date Recorded By Document 02/08/25 12:03 [id number] 02/08/25 12:16 Document 02/15/25 12:48 [id number] 02/15/25 13:01 Document 02/22/25 11:20 [id number] 02/22/25 11:32 Document 03/01/25 12:08 [id number] 03/01/25 12:25 02/08/25 02/15/25 02/22/25 12:03 12:48 11:20 Wound Center Nurse 2 #24 Left Lateral Leg -Time 12:03 12:48 11:21 -Correct Patient Yes Yes Yes -Correct Side, Site, Position Yes Yes Yes -Correct Procedure Yes Yes Yes -Procedure Performed Yes Yes Yes -Type of Procedure Debridement Debridement Debridement -Clinical Debridement Subcutaneous Subcutaneous Subcutaneous -Tissue Removed Subcutaneous Subcutaneous Subcutaneous -Post Debridement (cm) - Length 2.4 2.1 2.3 -Post Debridement (cm) - Width 1.6 1.3 1.5 -Post Debridement (cm) - Depth 0.1 0.1 0.1 -Total Square (Post) (cm) 3.84 2.73 3.45 -Area of Debridement (cm) - Length 2.4 2.1 2.3 -Area of Debridement (cm) - Width 1.6 1.3 1.5 -Total Square (Area) (cm) 3.84 2.73 3.45 -Tunneling No No No -Undermining/Tunneling No No No -Circular Undermining No No No -Wound/Ulcer Outcome Not Healed Not Healed Not Healed -Ulcer Cleansing Rinsed/ Rinsed/ Rinsed/ Irrigated with Irrigated with Irrigated with Saline Saline Saline -Foul Odor after Cleansing No No No -Bioengineered Tissue No No No -Bleeding Controlled with Pressure Pressure Pressure -Treatment Response Procedure Procedure Procedure Tolerated Well Tolerated Well Tolerated Well -Offloading No No No -Assistive Device(s) Walker -Debridement - Subq, 1st 20sq cm No No No #22 R Medial Lateral -Time 12:04 12:48 11:21 -Correct Patient Yes Yes Yes -Correct Side, Site, Position Yes Yes Yes -Correct Procedure Yes Yes Yes -Procedure Performed Yes Yes Yes -Type of Procedure Debridement Debridement Debridement -Clinical Debridement Subcutaneous Subcutaneous Subcutaneous -Tissue Removed Subcutaneous Subcutaneous Subcutaneous -Post Debridement (cm) - Length 11.8 11.5 11.5 -Post Debridement (cm) - Width 27.0 26.0 27.0 -Post Debridement (cm) - Depth 0.1 0.1 0.1 -Total Square (Post) (cm) 318.60 299.00 310.50 -Area of Debridement (cm) - Length 11.8 11.5 -Area of Debridement (cm) - Width 27.0 27.0 -Total Square (Area) (cm) 318.60 310.50 -Tunneling No No No -Undermining/Tunneling No No No -Circular Undermining No No No -Wound/Ulcer Outcome Not Healed Not Healed Not Healed -Ulcer Cleansing Rinsed/ Rinsed/ Rinsed/ Irrigated with Irrigated with Irrigated with Saline Saline Saline -Foul Odor after Cleansing No No No -Bioengineered Tissue No No No -Bleeding Controlled with Pressure Pressure Pressure -Treatment Response Procedure Procedure Procedure Tolerated Well Tolerated Well Tolerated Well -Offloading No No No -Assistive Device(s) Walker -Debridement - Subq, 1st 20sq cm No No No #18 Left medial LE cluster -Time 12:04 12:49 11:22 -Correct Patient Yes Yes Yes -Correct Side, Site, Position Yes Yes Yes -Correct Procedure Yes Yes Yes -Procedure Performed Yes Yes Yes -Type of Procedure Debridement Debridement Debridement -Clinical Debridement Subcutaneous Subcutaneous Subcutaneous -Tissue Removed Subcutaneous Subcutaneous Subcutaneous -Post Debridement (cm) - Length 8.5 8.5 8.6 -Post Debridement (cm) - Width 12.8 12.9 12.8 -Post Debridement (cm) - Depth 0.1 0.1 0.1 -Total Square (Post) (cm) 108.80 109.65 110.08 -Area of Debridement (cm) - Length 8.5 8.5 8.6 -Area of Debridement (cm) - Width 12.8 12.9 12.8 -Total Square (Area) (cm) 108.80 109.65 110.08 -Tunneling No No No -Undermining/Tunneling No No No -Circular Undermining No No No -Wound/Ulcer Outcome Not Healed Not Healed Not Healed -Ulcer Cleansing Rinsed/ Rinsed/ Rinsed/ Irrigated with Irrigated with Irrigated with Saline Saline Saline -Foul Odor after Cleansing No No No -Bioengineered Tissue No No No -Bleeding Controlled with Pressure Pressure Pressure -Treatment Response Procedure Procedure Procedure Tolerated Well Tolerated Well Tolerated Well -Offloading No No No -Debridement - Subq, 1st 20sq cm Yes Yes Yes -Debridement, SubQ, ea addt'l 20sq cm 21 20 21 or part thereof Pain Scale: 0-10 Numeric Is Patient Pain Free? Yes Yes Yes 03/01/25 12:08 Wound Center Nurse 2 #24 Left Lateral Leg -Time 12:08 -Correct Patient Yes -Correct Side, Site, Position Yes -Correct Procedure Yes -Procedure Performed Yes -Type of Procedure Debridement -Clinical Debridement Subcutaneous -Tissue Removed Subcutaneous -Post Debridement (cm) - Length 2.0 -Post Debridement (cm) - Width 1.2 -Post Debridement (cm) - Depth 0.1 -Total Square (Post) (cm) 2.40 -Area of Debridement (cm) - Length 2.0 -Area of Debridement (cm) - Width 1.2 -Total Square (Area) (cm) 2.40 -Tunneling No -Undermining/Tunneling No -Circular Undermining No -Wound/Ulcer Outcome Not Healed -Ulcer Cleansing Rinsed/ Irrigated with Saline -Foul Odor after Cleansing No -Bioengineered Tissue No -Bleeding Controlled with Pressure -Treatment Response Procedure Tolerated Well -Offloading -Assistive Device(s) Walker -Debridement - Subq, 1st 20sq cm No #22 R Medial Lateral -Time 12:09 -Correct Patient Yes -Correct Side, Site, Position Yes -Correct Procedure Yes -Procedure Performed Yes -Type of Procedure Debridement -Clinical Debridement Subcutaneous -Tissue Removed Subcutaneous -Post Debridement (cm) - Length 11.0 -Post Debridement (cm) - Width 26.3 -Post Debridement (cm) - Depth 0.1 -Total Square (Post) (cm) 289.30 -Area of Debridement (cm) - Length 11.0 -Area of Debridement (cm) - Width 26.3 -Total Square (Area) (cm) 289.30 -Tunneling No -Undermining/Tunneling No -Circular Undermining No -Wound/Ulcer Outcome Not Healed -Ulcer Cleansing Rinsed/ Irrigated with Saline -Foul Odor after Cleansing No -Bioengineered Tissue No -Bleeding Controlled with Pressure -Treatment Response Procedure Tolerated Well -Offloading No -Assistive Device(s) -Debridement - Subq, 1st 20sq cm No #18 Left medial LE cluster -Time 12:09 -Correct Patient Yes -Correct Side, Site, Position Yes -Correct Procedure Yes -Procedure Performed Yes -Type of Procedure Debridement -Clinical Debridement Subcutaneous -Tissue Removed Subcutaneous -Post Debridement (cm) - Length 8.5 -Post Debridement (cm) - Width 13.5 -Post Debridement (cm) - Depth 0.1 -Total Square (Post) (cm) 114.75 -Area of Debridement (cm) - Length 8.5 -Area of Debridement (cm) - Width 13.5 -Total Square (Area) (cm) 114.75 -Tunneling No -Undermining/Tunneling No -Circular Undermining No -Wound/Ulcer Outcome Not Healed -Ulcer Cleansing Rinsed/ Irrigated with Saline -Foul Odor after Cleansing No -Bioengineered Tissue No -Bleeding Controlled with Pressure -Treatment Response Procedure Tolerated Well -Offloading No -Debridement - Subq, 1st 20sq cm Yes -Debridement, SubQ, ea addt'l 20sq cm 20 or part thereof Pain Scale: 0-10 Numeric Is Patient Pain Free? Yes WC - Nurse 3 - General Ulcer D/C NN Start: 02/08/25 11:17 Freq: Status: Active Protocol: Activity Type Activity Date Activity User E-sign Co-sign Detail Recorded Client Recorded Date Recorded By Document 02/08/25 12:41 RB [id number] 02/08/25 12:44 RB Document 03/01/25 12:32 DS [id number] 03/01/25 12:48 DS Edit Result 03/01/25 12:32 DS (1) [id number] 03/01/25 12:57 DS (1) #22 R Medial Lateral - Optilok 6.5x10 1 => 2 #18 Left medial LE cluster - Optilok 6.5x10 1 => 0 02/08/25 03/01/25 12:41 12:32 Wound Care Center Nurse 3 #24 Left Lateral Leg -Ulcer Cleansing Rinsed/ Irrigated with Saline -Primary Dressing Applied Aquacel Extra Optilok 6.5x10 -Other Dressing ABD -Primary Dressing Covered/Secured with Dry Gauze & Roll Gauze, Secured with Tape -Aquacel Extra 1 -Optilok 6.5x10 1 #22 R Medial Lateral -Ulcer Cleansing Rinsed/ Irrigated with Saline -Primary Dressing Applied Aquacel Extra, Optilok 6.5x10 Optilok 6.5x10 -Primary Dressing Covered/Secured with Dry Gauze & Roll Gauze, Secured with Tape -Aquacel Extra 1 -Optilok 6.5x10 1 2 #18 Left medial LE cluster -Ulcer Cleansing Rinsed/ Irrigated with Saline -Primary Dressing Applied Aquacel Extra, Optilok 6.5x10 Optilok 6.5x10 -Primary Dressing Covered/Secured with Dry Gauze & Roll Gauze, Secured with Tape -Aquacel Extra 1 -Optilok 6.5x10 1 0 BLE -Stockings Yes: pt own circaids -Other CIRCAIDES Treatment Response Procedure Tolerated Well Pain Scale: 0-10 Numeric Is Patient Pain Free? Yes Yes WC - Visit Discharge Discharge Condition Stable Stable Ambulatory Status Ambulatory, Ambulatory, Walker Walker Transportation Private Auto Medication Reconcilliation completed & No provided to patient/care provider Clinical Summary of Care Provided Yes Additional Wound Wound debrided: right lateral leg Laterality: Right Type of Debridement: Excisional debridement Anesthesia Used: 5% Lidocaine Gel and Cetacaine Depth: Down to and including healthy tissue and in the subcutaneous layer Percentage of wound debrided: 100 Instrument Used: - (Misonix ultrasonic debridement) Tissue Removed: Yellow slough, devitalized tissue Severity: Fat Layer Exposed Amount of bleeding with debridement: Mild Bleeding Controlled with: Compression and gauze Patient tolerated procedure: Patient tolerated procedure well Additional Wound Wound debrided: right medial leg Laterality: Right Type of Debridement: Excisional debridement Anesthesia Used: 5% Lidocaine Gel and Cetacaine Depth: Down to and including healthy tissue and in the subcutaneous layer Percentage of wound debrided: 100 Instrument Used: - (Misonix ultrasonic debridement) Tissue Removed: Yellow slough, devitalized tissue Severity: Fat Layer Exposed Amount of bleeding with debridement: Mild Bleeding Controlled with: Compression and gauze Patient tolerated procedure: Patient tolerated procedure well Assessment/Plan Assessment/Plan (1) Lymphedema: CODE(S): I89.0 - Lymphedema, not elsewhere classified (2) Hypertension: CODE(S): I10 - Essential (primary) hypertension QUALIFIERS: Hypertension type: primary hypertension Qualified Code(s): I10 - Essential (primary) hypertension (3) Hyperlipidemia: CODE(S): E78.5 - Hyperlipidemia, unspecified QUALIFIERS: Hyperlipidemia type: mixed hyperlipidemia Qualified Code(s): E78.2 - Mixed hyperlipidemia (4) History of DVT (deep vein thrombosis): CODE(S): Z86.718 - Personal history of other venous thrombosis and embolism (5) Venous insufficiency (chronic) (peripheral): CODE(S): I87.2 - Venous insufficiency (chronic) (peripheral) (6) Venous ulcer of left lower extremity with varicose veins: CODE(S): I83.029 - Varicose veins of left lower extremity with ulcer of unspecified site (7) Edema: CODE(S): R60.9 - Edema, unspecified QUALIFIERS: Edema type: unspecified Qualified Code(s): R60.9 - Edema, unspecified (8) 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 At home wound-care instructions: Will use Circaid compression garments with super absorber and kerlix to right LE and left LE changed every other day. Due to his chronic lymphedema and being unable to don traditional compression stockings and the presence of venous ulcers on his LE b/l, it is medically necessary for him to have Circaid compression garments. He is using Circaid compression to both legs. I suspect he is not very compliant with his lymphedemapumps and not getting adequate compression with tubigrips. Due to the delayed progress in wound healing of his venous ulcers, we discussed applying for advanced wound healing product for healing his ulcer. Due to the size of his ulcer, Theraskin application approval was requested from his insurance as it is medically necessary for salvaging his limb and healing his ulcer. He underwent 2 applications of Theraskin to this ulcer. Since applicationof Theraskin he had much improvement in epithelialization of his ulcer even though the overall size is not significantly changed there was progress. He is using Circaid compression wraps. Off-loading: The patient was instructed to avoid pressure and friction on the affected areas. Reposition every 2 hours at minimum. Avoid prolonged standing and/or dangling of legs. When seated, feet should be elevated at chest level. Frequent ambulation is encouraged. Encouraged lymphedema pump use. Diet: Patient encouraged to increase protein intake while taking caution to avoid high carbohydrate and/or sugar intake. Labs/cultures/imaging: Wound culture showed Pseudomonas, Escherichia hermannii, Raoultella planticola, Vancomycin Resist. E. faecalis, Alcaligenes faecalis ssp faeca, Staphylococcus cohnii urealyti and anaerobic bacteria on 06/15/24 and he completed on Levofloxacin and Augmentin. Wound culture taken today on right lateral ulcer which showed Raoultella planticola, Staph hemolyticus, staph epidermidis and morganella morganii but no anaeroobic bacteria, Levofloxacin anddoxycyline were prescribed based on culture results. Labs ordered 10/19/2024. Vitamin D was low A1C 5.4% Wound culture from 12/07/24 was positive for Providencia stuartii, Vancomycin resistant E. Faecalis, Corynebacterium striatum and completed Augmentin orally. Follow-up: Return in 1 week for wound care follow up and have dressing changed by home health Tuesday. Return sooner or report to the emergency room should symptoms worsen, or new symptoms arise. Note: [employer] speech recognition hair tinter software was used to create portions of this document. Sound-alike and misspelled words, as well as other hair tinter errors may be contained in the documentation. 03/01/25 1335 <Electronically signed by Patricia Garcia DO> Cosigner Signature (if applicable): CC: ~ Signed [facility] Work Phone: [phone] Progress note [facility] [address] [place] [address] Progress Note - Wound Care 03/01/25 1332 MR#: [id number] Acct: [id number] Name: ESTEBAN URBINA Rep #:[id number] : 1955 69 From: Patricia Garcia DO PCP: Dr. Patricia Garcia, DO Status:REG R Location: History of Present Illness Date of Service: 03/01/25 Chief Complaint: venous ulcers of left lower extremity History of Wound: Mauricio is a 69 yo gentleman who is here today for evaluation of ulcers to to his bilateral lower legs. [facility]. The left LE ulcer started after he developed increased swelling and blisters of left leg in Octoberand the right leg started sometime at the end of October. He was seen at PCP's office a culture was taken and it was resistant to several antibiotics. He wastreated initially with Levaquin but had myalgias and then was treated with doxycycline which he finished 2 days ago. He denies improvementand is having swelling to his left calf and thigh. He has been having swelling to both lower extremities for many years and it has worsened over the last few chirag hs. He has not been compliant with compression. He has had increased pain especially in the left leg. He has clear yellow drainage and redness without odor or warmth. He is anti- coagulated on coumadin. He has been washing with Dial soap and witch ifrah. He had been using Collagen at times and using Calcium Alginate and covering with ABD pads during October. He was treated with 3M compression and Aquacel Ag. He was referred to the wound center for ongoing treatment. His ulcers have moderate to heavy drainage. He was in the hospital from 11/30/22 until 12/09/22 for treatment of cellulitis andedema. He underwenttreatment with Vancomycin and IV lasix and compression. Discharged on 12/09/22. He returned to his assisted living apartment on Tuesday12/21/22. Subjective Subjective Mauricio is a 69-year-old male with longstanding history of chronic venous ulcerationto the left lower extremity and now a right lower extremity venous ulcer that isnearly circumferential. There continuesto be mild improvement in both ulcers over the last week. He is more compliant with elevation. Wound culture from 12/07/24 was positive for Providencia stuartii, Vancomycin resistant E. Faecalis,Corynebacterium striatum and completed Augmentin orally. His edema is better this week and he is tolerating Circaid compression. 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 He continues to use his lymphedema pumps but continues to have painwith use of these pumps. 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 Objective Data Objective Data Vital Signs: Vital Signs Temp Pulse Resp BP O2 Del Method 97.0 F L 61 18 146/77 H Room Air 03/01/25 11:29 03/01/25 11:29 03/01/25 11:29 03/01/25 11:03/01/25 11:29 Oxygen Delivery Method Room Air Physical Exam Const alert, oriented x3 and no apparent distress General Appearance: cooperative and comfortable HEENT normocephalic and head/scalp atraumatic Lymph Lymphatic: lymphedema moderate Resp normal respiratory effort Effort and Inspection: able to speak in complete sentences Cardio regular rate and regular rhythm Extremity Extremity Narrative: His ulcers are painful and the right lower leg remains more swollen than his left but there is goodgranulation tissue throughout and slough that is nearly completely removed post - debridement, edges of ulcers are beveled without rolled borders General Extremity: edema bilateral lower extremity Details: severe Skin General Skin Exam: venous stasis and dermatitis Wounds: wounds noted Wound Narrative: as in clinical panel, + devitalized tissue, there is increased depth, + granulation tissue bilateral ulcer with good granulation and moderate to heavy slough prior to debridement and minimalpost debridement Psych mental status grossly normal, thought process normal, cooperative and affect normal Debridement Note Debridement Note Wound debrided: left medial LE ulcer Laterality: Left Type of Debridement: Excisional debridement Anesthesia Used: 5% Lidocaine Gel and Cetacaine Depth: Down to and including healthy tissue and in the subcutaneous layer Percentage of wound debrided: 100 Instrument Used: - (Misonix ultrasonic debridement) Tissue Removed: Yellow slough, devitalized tissue Severity: Fat Layer Exposed Amount of bleeding with debridement: Mild Bleeding Controlled with: Compression and gauze Patient tolerated procedure: Patient tolerated procedure well Post-Debridement Measurements and Additional Note: Post-Debridement Measurements/Treatment - Nurse 1 - General Ulcer Assessment Start: 02/08/25 11:17 Freq: Status: Active Protocol: ONDINA Activity Type Activity Date Activity User E-sign Co-sign Detail Recorded Client Recorded Date Recorded By Document 02/08/25 11:17 KW [id number] 02/08/25 11:38 KW Document 02/15/25 11:47 KW [id number] 02/15/25 12:08 KW Document 02/22/25 10:28 KW [id number] 02/22/25 10:45 KW Document 03/01/25 11:29 DS [id number] 03/01/25 11:30 DS 02/08/25 02/15/25 02/22/25 11:17 11:47 10:28 - Today's Visit Information Type of service Follow-up Visit Follow-up Visit Follow-up Visit (Physician/APPLICATIONS SPECIALIST (Physician/APPLICATIONS SPECIALIST (Physician/APPLICATIONS SPECIALIST ) ) ) Arrival Mode Ambulatory, Ambulatory, Ambulatory, Walker Walker Walker Patient Identification Verified (Name & Yes Yes Yes ) Patient Requires Transmission-Based Precautions Safety Precautions Vital Signs Temperature (97.8 F-99.1 F) 96.1 F L Temperature Source Temporal Temporal Pulse Rate (60-100) 65 63 67 Pulse Location Monitor Monitor Monitor Respiratory Rate (12-18) 16 18 18 Respiratory rate source Observation Observation Observation Oxygen Delivery Method Room Air Room Air Room Air Blood Pressure (90/60-120/80) 143/68 H 144/75 H 117/73 Blood Pressure Mean (mm Hg) 93 98 87 Source Monitor Monitor Monitor Position Semi-Fowlers Semi-Fowlers Semi-Fowlers Blood Pressure Location Right Arm Right Arm Left Arm History Since Last Visit- (Skip if this is Patient's initial visit) Have you changed medications since your No No No last visit? Any new allergies or adverse reactions No No No Had a fall/change in ADL's that may No No No increase risk of falls Signs or symptoms of abuse and/or No No No neglect since last visit Have you been in the hospital since your No No No last visit? Has dressing in place as prescribed Yes Yes Yes Has compression in place as prescribed Yes Yes Yes Has offloadiing in place as prescribed N/A N/A N/A Experienced any changes in pain level or No No No management Left Footwear Regular Shoe Regular Shoe Regular Shoe Right Footwear Regular Shoe Regular Shoe Regular Shoe Pain Scale: 0-10 Numeric Is Patient Pain Free? Yes Yes Yes LLE -Description -Intensity -Duration (hours) -Pain Behavior -Alleviating Factors/Interventions 03/01/25 11:29 WC - Today's Visit Information Type of service Follow-up Visit (Physician/APPLICATIONS SPECIALIST ) Arrival Mode Ambulatory, Walker Patient Identification Verified (Name & Yes ) Patient Requires Transmission-Based No Precautions Safety Precautions Fall Prevention Vital Signs Temperature (97.8 F-99.1 F) 97.0 F L Temperature Source Temporal Pulse Rate (60-100) 61 Pulse Location Monitor Respiratory Rate (12-18) 18 Respiratory rate source Observation Oxygen Delivery Method Room Air Blood Pressure (90/60-120/80) 146/77 H Blood Pressure Mean (mm Hg) 100 Source Monitor Position Sitting Blood Pressure Location Right Arm History Since Last Visit- (Skip if this is Patient's initial visit) Have you changed medications since your No last visit? Any new allergies or adverse reactions No Had a fall/change in ADL's that may No increase risk of falls Signs or symptoms of abuse and/or No neglect since last visit Have you been in the hospital since your No last visit? Has dressing in place as prescribed Yes Has compression in place as prescribed Yes Has offloadiing in place as prescribed N/A Experienced any changes in pain level or No management Left Footwear Regular Shoe Right Footwear Regular Shoe Pain Scale: 0-10 Numeric Is Patient Pain Free? No LLE -Description Sharp,Throbbing -Intensity 7 -Duration (hours) Chronic -Pain Behavior No Change in Behavior -Alleviating Factors/Interventions Will continue to monitor, Emotional Support WC - Nurse 1 - General Ulcer Measurement Start: 02/08/25 11:17 Freq: Status: Active Protocol: Activity Type Activity Date Activity User E-sign Co-sign Detail Recorded Client Recorded Date Recorded By Document 02/08/25 11:17 KW [id number] 02/08/25 11:38 KW Document 02/15/25 11:47 KW [id number] 02/15/25 12:08 KW Document 02/22/25 10:28 KW [id number] 02/22/25 10:45 KW Document 03/01/25 11:30 DS [id number] 03/01/25 11:53 DS 02/08/25 02/15/25 02/22/25 11:17 11:47 10:28 Wound Center Nurse 1 #24 Left Lateral Leg -Current Size (cm) - Length 2.7 0.1 2.3 -Current Size (cm) - Width 3.2 0.1 1.4 -Current Size (cm) - Depth 0.1 0.1 0.2 -Total Square Cm 8.64 0.01 3.22 -Date of Last Picture (Recall this 02/15/25 field) -Photo Taken -Exudate Amt Small Large Medium -Exudate Type Serosanguineous Serosanguineous Serosanguineous -Wound Margin Distinct, Distinct, Distinct, Outline Outline Outline Attached Attached Attached -Granulation Amt Medium (34-66%) Medium (34-66%) Large (67-100%) -Granulation Quality Lingle Red Red -Necrosis Amt Small (1-33%) Medium (34-66%) Small (1-33%) -Necrotic Tissue Type Adherent Slough Adherent Slough Adherent Slough -Texture (Marie-wound Skin Appearance) Assessed Assessed Assessed -Moisture (Marie-wound Skin Appearance) Assessed Assessed Assessed -Color (Marie-wound Skin Appearance) Assessed, Assessed, Assessed, Hemosiderin Hemosiderin Hemosiderin Staining Staining Staining -Temperature (Marie-wound Skin No Abnormality No Abnormality No Abnormality Appearance) (Pt Warm) (Pt Warm) (Pt Warm) -Tenderness on Palpation (Marie-wound No No No Skin Appearance) -Ulcer Cleansing Soap and Water Soap and Water Soap and Water -Foul Odor after Cleansing No No No -Anesthetic Used 5% Lidocaine 5% Lidocaine 5% Lidocaine Gel Gel Gel #22 R Medial Lateral -Current Size (cm) - Length 28 0.1 10.5 -Current Size (cm) - Width 10.5 0.1 28.5 -Current Size (cm) - Depth 0.2 0.1 0.2 -Total Square Cm 294.0 0.01 299.25 -Date of Last Picture (Recall this 02/15/25 field) -Photo Taken -Tunneling -Undermining/Tunneling -Circular Undermining -Exudate Amt Large Large Large -Exudate Type Serosanguineous Serosanguineous Serosanguineous -Wound Margin Distinct, Distinct, Thickened Outline Outline Attached Attached -Granulation Amt Large (67-100%) Medium (34-66%) Large (67-100%) -Granulation Quality Red Red Red -Necrosis Amt Medium (34-66%) Medium (34-66%) Medium (34-66%) -Necrotic Tissue Type Adherent Slough Adherent Slough Adherent Slough -Texture (Marie-wound Skin Appearance) Assessed Assessed Assessed -Moisture (Marie-wound Skin Appearance) Assessed Assessed Assessed -Color (Marie-wound Skin Appearance) Assessed, Assessed, Assessed, Hemosiderin Hemosiderin Hemosiderin Staining Staining Staining -Temperature (Maire-wound Skin No Abnormality No Abnormality No Abnormality Appearance) (Pt Warm) (Pt Warm) (Pt Warm) -Tenderness on Palpation (Marie-wound No No No Skin Appearance) -Ulcer Cleansing Soap and Water Soap and Water Soap and Water -Foul Odor after Cleansing No No No -Anesthetic Used 5% Lidocaine 5% Lidocaine 5% Lidocaine Gel Gel Gel #18 Left medial LE cluster -Current Size (cm) - Length 15 0.1 9 -Current Size (cm) - Width 8.5 0.1 13.5 -Current Size (cm) - Depth 0.2 0.1 0.2 -Total Square Cm 127.5 0.01 121.5 -Date of Last Picture (Recall this 02/15/25 field) -Photo Taken -Tunneling -Undermining/Tunneling -Circular Undermining -Exudate Amt Large Large Medium -Exudate Type Serosanguineous Serosanguineous Serosanguineous -Wound Margin Distinct, Distinct, Distinct, Outline Outline Outline Attached Attached Attached -Granulation Amt Large (67-100%) Medium (34-66%) Large (67-100%) -Granulation Quality Red Red Red -Necrosis Amt Medium (34-66%) Medium (34-66%) Small (1-33%) -Necrotic Tissue Type Adherent Slough Adherent Slough Adherent Slough -Texture (Marie-wound Skin Appearance) Assessed Assessed Assessed -Moisture (Marie-wound Skin Appearance) Assessed Assessed Assessed -Color (Marie-wound Skin Appearance) Assessed, Assessed, Assessed, Hemosiderin Erythema, Erythema, Staining Hemosiderin Hemosiderin Staining Staining -Temperature (Marie-wound Skin No Abnormality No Abnormality No Abnormality Appearance) (Pt Warm) (Pt Warm) (Pt Warm) -Tenderness on Palpation (Marie-wound No No No Skin Appearance) -Ulcer Cleansing Soap and Water Soap and Water Soap and Water -Foul Odor after Cleansing No No No -Anesthetic Used 5% Lidocaine 5% Lidocaine 5% Lidocaine Gel Gel Gel Right Calf (cm) 47.2 44.5 45 Right Ankle (cm) 30.5 30 30 Left Calf (cm) 44 42 42.5 Left Ankle (cm) 29 30 30.5 03/01/25 11:30 Wound Center Nurse 1 #24 Left Lateral Leg -Current Size (cm) - Length 2.0 -Current Size (cm) - Width 1.4 -Current Size (cm) - Depth 0.2 -Total Square Cm 2.80 -Date of Last Picture (Recall this field) -Photo Taken No -Exudate Amt -Exudate Type -Wound Margin Distinct, Outline Attached -Granulation Amt Medium (34-66%) -Granulation Quality Lingle -Necrosis Amt Medium (34-66%) -Necrotic Tissue Type Adherent Slough -Texture (Marie-wound Skin Appearance) Assessed -Moisture (Marie-wound Skin Appearance) Assessed -Color (Marie-wound Skin Appearance) Assessed -Temperature (Marie-wound Skin No Abnormality Appearance) (Pt Warm) -Tenderness on Palpation (Marie-wound No Skin Appearance) -Ulcer Cleansing Soap and Water -Foul Odor after Cleansing No -Anesthetic Used 5% Lidocaine Gel #22 R Medial Lateral -Current Size (cm) - Length 11.5 -Current Size (cm) - Width 29.0 -Current Size (cm) - Depth 0.2 -Total Square Cm 333.50 -Date of Last Picture (Recall this field) -Photo Taken No -Tunneling No -Undermining/Tunneling No -Circular Undermining No -Exudate Amt -Exudate Type -Wound Margin Distinct, Outline Attached -Granulation Amt Medium (34-66%) -Granulation Quality Lingle -Necrosis Amt Medium (34-66%) -Necrotic Tissue Type Adherent Slough -Texture (Marie-wound Skin Appearance) Assessed -Moisture (Marie-wound Skin Appearance) Assessed -Color (Amrie-wound Skin Appearance) Assessed -Temperature (Marie-wound Skin No Abnormality Appearance) (Pt Warm) -Tenderness on Palpation (Marie-wound No Skin Appearance) -Ulcer Cleansing Soap and Water -Foul Odor after Cleansing No -Anesthetic Used 5% Lidocaine Gel #18 Left medial LE cluster -Current Size (cm) - Length 14.5 -Current Size (cm) - Width 8.0 -Current Size (cm) - Depth 0.2 -Total Square Cm 116.00 -Date of Last Picture (Recall this field) -Photo Taken No -Tunneling No -Undermining/Tunneling No -Circular Undermining No -Exudate Amt -Exudate Type -Wound Margin Distinct, Outline Attached -Granulation Amt Medium (34-66%) -Granulation Quality Lingle -Necrosis Amt Medium (34-66%) -Necrotic Tissue Type Adherent Slough -Texture (Marie-wound Skin Appearance) Assessed -Moisture (Marie-wound Skin Appearance) Assessed -Color (Marie-wound Skin Appearance) Assessed -Temperature (Marie-wound Skin No Abnormality Appearance) (Pt Warm) -Tenderness on Palpation (Marie-wound No Skin Appearance) -Ulcer Cleansing Soap and Water -Foul Odor after Cleansing No -Anesthetic Used 5% Lidocaine Gel Right Calf (cm) 45.6 Right Ankle (cm) 30.5 Left Calf (cm) 41.2 Left Ankle (cm) 31.8 WC - Nurse 2 - General Ulcer CM Notes Start: 02/08/25 11:17 Freq: Status: Active Protocol: Activity Type Activity Date Activity User E-sign Co-sign Detail Recorded Client Recorded Date Recorded By Document 02/08/25 12:03 [id number] 02/08/25 12:16 Document 02/15/25 12:48 [id number] 02/15/25 13:01 Document 02/22/25 11:20 [id number] 02/22/25 11:32 Document 03/01/25 12:08 [id number] 03/01/25 12:25 02/08/25 02/15/25 02/22/25 12:03 12:48 11:20 Wound Center Nurse 2 #24 Left Lateral Leg -Time 12:03 12:48 11:21 -Correct Patient Yes Yes Yes -Correct Side, Site, Position Yes Yes Yes -Correct Procedure Yes Yes Yes -Procedure Performed Yes Yes Yes -Type of Procedure Debridement Debridement Debridement -Clinical Debridement Subcutaneous Subcutaneous Subcutaneous -Tissue Removed Subcutaneous Subcutaneous Subcutaneous -Post Debridement (cm) - Length 2.4 2.1 2.3 -Post Debridement (cm) - Width 1.6 1.3 1.5 -Post Debridement (cm) - Depth 0.1 0.1 0.1 -Total Square (Post) (cm) 3.84 2.73 3.45 -Area of Debridement (cm) - Length 2.4 2.1 2.3 -Area of Debridement (cm) - Width 1.6 1.3 1.5 -Total Square (Area) (cm) 3.84 2.73 3.45 -Tunneling No No No -Undermining/Tunneling No No No -Circular Undermining No No No -Wound/Ulcer Outcome Not Healed Not Healed Not Healed -Ulcer Cleansing Rinsed/ Rinsed/ Rinsed/ Irrigated with Irrigated with Irrigated with Saline Saline Saline -Foul Odor after Cleansing No No No -Bioengineered Tissue No No No -Bleeding Controlled with Pressure Pressure Pressure -Treatment Response Procedure Procedure Procedure Tolerated Well Tolerated Well Tolerated Well -Offloading No No No -Assistive Device(s) Walker -Debridement - Subq, 1st 20sq cm No No No #22 R Medial Lateral -Time 12:04 12:48 11:21 -Correct Patient Yes Yes Yes -Correct Side, Site, Position Yes Yes Yes -Correct Procedure Yes Yes Yes -Procedure Performed Yes Yes Yes -Type of Procedure Debridement Debridement Debridement -Clinical Debridement Subcutaneous Subcutaneous Subcutaneous -Tissue Removed Subcutaneous Subcutaneous Subcutaneous -Post Debridement (cm) - Length 11.8 11.5 11.5 -Post Debridement (cm) - Width 27.0 26.0 27.0 -Post Debridement (cm) - Depth 0.1 0.1 0.1 -Total Square (Post) (cm) 318.60 299.00 310.50 -Area of Debridement (cm) - Length 11.8 11.5 -Area of Debridement (cm) - Width 27.0 27.0 -Total Square (Area) (cm) 318.60 310.50 -Tunneling No No No -Undermining/Tunneling No No No -Circular Undermining No No No -Wound/Ulcer Outcome Not Healed Not Healed Not Healed -Ulcer Cleansing Rinsed/ Rinsed/ Rinsed/ Irrigated with Irrigated with Irrigated with Saline Saline Saline -Foul Odor after Cleansing No No No -Bioengineered Tissue No No No -Bleeding Controlled with Pressure Pressure Pressure -Treatment Response Procedure Procedure Procedure Tolerated Well Tolerated Well Tolerated Well -Offloading No No No -Assistive Device(s) Walker -Debridement - Subq, 1st 20sq cm No No No #18 Left medial LE cluster -Time 12:04 12:49 11:22 -Correct Patient Yes Yes Yes -Correct Side, Site, Position Yes Yes Yes -Correct Procedure Yes Yes Yes -Procedure Performed Yes Yes Yes -Type of Procedure Debridement Debridement Debridement -Clinical Debridement Subcutaneous Subcutaneous Subcutaneous -Tissue Removed Subcutaneous Subcutaneous Subcutaneous -Post Debridement (cm) - Length 8.5 8.5 8.6 -Post Debridement (cm) - Width 12.8 12.9 12.8 -Post Debridement (cm) - Depth 0.1 0.1 0.1 -Total Square (Post) (cm) 108.80 109.65 110.08 -Area of Debridement (cm) - Length 8.5 8.5 8.6 -Area of Debridement (cm) - Width 12.8 12.9 12.8 -Total Square (Area) (cm) 108.80 109.65 110.08 -Tunneling No No No -Undermining/Tunneling No No No -Circular Undermining No No No -Wound/Ulcer Outcome Not Healed Not Healed Not Healed -Ulcer Cleansing Rinsed/ Rinsed/ Rinsed/ Irrigated with Irrigated with Irrigated with Saline Saline Saline -Foul Odor after Cleansing No No No -Bioengineered Tissue No No No -Bleeding Controlled with Pressure Pressure Pressure -Treatment Response Procedure Procedure Procedure Tolerated Well Tolerated Well Tolerated Well -Offloading No No No -Debridement - Subq, 1st 20sq cm Yes Yes Yes -Debridement, SubQ, ea addt'l 20sq cm 21 20 21 or part thereof Pain Scale: 0-10 Numeric Is Patient Pain Free? Yes Yes Yes 03/01/25 12:08 Wound Center Nurse 2 #24 Left Lateral Leg -Time 12:08 -Correct Patient Yes -Correct Side, Site, Position Yes -Correct Procedure Yes -Procedure Performed Yes -Type of Procedure Debridement -Clinical Debridement Subcutaneous -Tissue Removed Subcutaneous -Post Debridement (cm) - Length 2.0 -Post Debridement (cm) - Width 1.2 -Post Debridement (cm) - Depth 0.1 -Total Square (Post) (cm) 2.40 -Area of Debridement (cm) - Length 2.0 -Area of Debridement (cm) - Width 1.2 -Total Square (Area) (cm) 2.40 -Tunneling No -Undermining/Tunneling No -Circular Undermining No -Wound/Ulcer Outcome Not Healed -Ulcer Cleansing Rinsed/ Irrigated with Saline -Foul Odor after Cleansing No -Bioengineered Tissue No -Bleeding Controlled with Pressure -Treatment Response Procedure Tolerated Well -Offloading -Assistive Device(s) Walker -Debridement - Subq, 1st 20sq cm No #22 R Medial Lateral -Time 12:09 -Correct Patient Yes -Correct Side, Site, Position Yes -Correct Procedure Yes -Procedure Performed Yes -Type of Procedure Debridement -Clinical Debridement Subcutaneous -Tissue Removed Subcutaneous -Post Debridement (cm) - Length 11.0 -Post Debridement (cm) - Width 26.3 -Post Debridement (cm) - Depth 0.1 -Total Square (Post) (cm) 289.30 -Area of Debridement (cm) - Length 11.0 -Area of Debridement (cm) - Width 26.3 -Total Square (Area) (cm) 289.30 -Tunneling No -Undermining/Tunneling No -Circular Undermining No -Wound/Ulcer Outcome Not Healed -Ulcer Cleansing Rinsed/ Irrigated with Saline -Foul Odor after Cleansing No -Bioengineered Tissue No -Bleeding Controlled with Pressure -Treatment Response Procedure Tolerated Well -Offloading No -Assistive Device(s) -Debridement - Subq, 1st 20sq cm No #18 Left medial LE cluster -Time 12:09 -Correct Patient Yes -Correct Side, Site, Position Yes -Correct Procedure Yes -Procedure Performed Yes -Type of Procedure Debridement -Clinical Debridement Subcutaneous -Tissue Removed Subcutaneous -Post Debridement (cm) - Length 8.5 -Post Debridement (cm) - Width 13.5 -Post Debridement (cm) - Depth 0.1 -Total Square (Post) (cm) 114.75 -Area of Debridement (cm) - Length 8.5 -Area of Debridement (cm) - Width 13.5 -Total Square (Area) (cm) 114.75 -Tunneling No -Undermining/Tunneling No -Circular Undermining No -Wound/Ulcer Outcome Not Healed -Ulcer Cleansing Rinsed/ Irrigated with Saline -Foul Odor after Cleansing No -Bioengineered Tissue No -Bleeding Controlled with Pressure -Treatment Response Procedure Tolerated Well -Offloading No -Debridement - Subq, 1st 20sq cm Yes -Debridement, SubQ, ea addt'l 20sq cm 20 or part thereof Pain Scale: 0-10 Numeric Is Patient Pain Free? Yes WC - Nurse 3 - General Ulcer D/C NN Start: 02/08/25 11:17 Freq: Status: Active Protocol: Activity Type Activity Date Activity User E-sign Co-sign Detail Recorded Client Recorded Date Recorded By Document 02/08/25 12:41 RB [id number] 02/08/25 12:44 RB Document 03/01/25 12:32 DS [id number] 03/01/25 12:48 DS Edit Result 03/01/25 12:32 DS (1) [id number] 03/01/25 12:57 DS (1) #22 R Medial Lateral - Optilok 6.5x10 1 => 2 #18 Left medial LE cluster - Optilok 6.5x10 1 => 0 02/08/25 03/01/25 12:41 12:32 Wound Care Center Nurse 3 #24 Left Lateral Leg -Ulcer Cleansing Rinsed/ Irrigated with Saline -Primary Dressing Applied Aquacel Extra Optilok 6.5x10 -Other Dressing ABD -Primary Dressing Covered/Secured with Dry Gauze & Roll Gauze, Secured with Tape -Aquacel Extra 1 -Optilok 6.5x10 1 #22 R Medial Lateral -Ulcer Cleansing Rinsed/ Irrigated with Saline -Primary Dressing Applied Aquacel Extra, Optilok 6.5x10 Optilok 6.5x10 -Primary Dressing Covered/Secured with Dry Gauze & Roll Gauze, Secured with Tape -Aquacel Extra 1 -Optilok 6.5x10 1 2 #18 Left medial LE cluster -Ulcer Cleansing Rinsed/ Irrigated with Saline -Primary Dressing Applied Aquacel Extra, Optilok 6.5x10 Optilok 6.5x10 -Primary Dressing Covered/Secured with Dry Gauze & Roll Gauze, Secured with Tape -Aquacel Extra 1 -Optilok 6.5x10 1 0 BLE -Stockings Yes: pt own circaids -Other CIRCAIDES Treatment Response Procedure Tolerated Well Pain Scale: 0-10 Numeric Is Patient Pain Free? Yes Yes WC - Visit Discharge Discharge Condition Stable Stable Ambulatory Status Ambulatory, Ambulatory, Walker Walker Transportation Private Auto Medication Reconcilliation completed & No provided to patient/care provider Clinical Summary of Care Provided Yes Additional Wound Wound debrided: right lateral leg Laterality: Right Type of Debridement: Excisional debridement Anesthesia Used: 5% Lidocaine Gel and Cetacaine Depth: Down to and including healthy tissue and in the subcutaneous layer Percentage of wound debrided: 100 Instrument Used: - (Misonix ultrasonic debridement) Tissue Removed: Yellow slough, devitalized tissue Severity: Fat Layer Exposed Amount of bleeding with debridement: Mild Bleeding Controlled with: Compression and gauze Patient tolerated procedure: Patient tolerated procedure well Additional Wound Wound debrided: right medial leg Laterality: Right Type of Debridement: Excisional debridement Anesthesia Used: 5% Lidocaine Gel and Cetacaine Depth: Down to and including healthy tissue and in the subcutaneous layer Percentage of wound debrided: 100 Instrument Used: - (Misonix ultrasonic debridement) Tissue Removed: Yellow slough, devitalized tissue Severity: Fat Layer Exposed Amount of bleeding with debridement: Mild Bleeding Controlled with: Compression and gauze Patient tolerated procedure: Patient tolerated procedure well Assessment/Plan Assessment/Plan (1) Lymphedema: CODE(S): I89.0 - Lymphedema, not elsewhere classified (2) Hypertension: CODE(S): I10 - Essential (primary) hypertension QUALIFIERS: Hypertension type: primary hypertension Qualified Code(s): I10 - Essential (primary) hypertension (3) Hyperlipidemia: CODE(S): E78.5 - Hyperlipidemia, unspecified QUALIFIERS: Hyperlipidemia type: mixed hyperlipidemia Qualified Code(s): E78.2 - Mixed hyperlipidemia (4) History of DVT (deep vein thrombosis): CODE(S): Z86.718 - Personal history of other venous thrombosis and embolism (5) Venous insufficiency (chronic) (peripheral): CODE(S): I87.2 - Venous insufficiency (chronic) (peripheral) (6) Venous ulcer of left lower extremity with varicose veins: CODE(S): I83.029 - Varicose veins of left lower extremity with ulcer of unspecified site (7) Edema: CODE(S): R60.9 - Edema, unspecified QUALIFIERS: Edema type: unspecified Qualified Code(s): R60.9 - Edema, unspecified (8) 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 At home wound-care instructions: Will use Circaid compression garments with super absorber and kerlix to right LE and left LE changed every other day. Due to his chronic lymphedema and being unable to don traditional compression stockings and the presence of venous ulcers on his LE b/l, it is medically necessary for him to have Circaid compression garments. He is using Circaid compression to both legs. I suspect he is not very compliant with his l ymphedemapumps and not getting adequate compression with tubigrips. Due to the delayed progress in wound healing of his venous ulcers, we discussed applying for advanced wound healing product for healing his ulcer. Due to the size of his ulcer, Theraskin application approval was requested from his insurance as it is medically necessary for salvaging his limb and healing his ulcer. He underwent 2 applications of Theraskin to this ulcer. Since applicationof Theraskin he had much improvement in epithelialization of his ulcer even though the overall size is not significantly changed there was progress. He is using Circaid compression wraps. Off-loading: The patient was instructed to avoid pressure and friction on the affected areas. Reposition every 2 hours at minimum. Avoid prolonged standing and/or dangling of legs. When seated, feet should be elevated at chest level. Frequent ambulation is encouraged. Encouraged lymphedema pump use. Diet: Patient encouraged to increase protein intake while taking caution to avoid high carbohydrateand/or sugar intake. Labs/cultures/imaging: Wound culture showed Pseudomonas, Escherichia hermannii, Raoultella planticola, Vancomycin Resist. E. faecalis, Alcaligenes faecalis ssp faeca, Staphylococcus cohnii urealyti and anaerobic bacteria on 06/15/24 and he completed on Levofloxacin and Augmentin. Wound culture taken today on right lateral ulcer which showed Raoultella planticola, Staph hemolyticus, staph epidermidis and morganella morganii but no anaeroobic bacteria, Levofloxacin anddoxycyline were prescribed based on culture results. Labs ordered 10/19/2024. Vitamin D was low A1C 5.4% Wound culture from 12/07/24 was positive for Providencia stuartii, Vancomycin resistant E. Faecalis, Corynebacterium striatum and completed Augmentinorally. Follow-up: Return in 1 week for wound care follow up and have dressing changed by home health Tuesday. Return sooner or report to the emergency room should symptoms worsen, or new symptoms arise. Note: Unir[employer] speech recognition hair tinter software was used to create portions of this document. Sound-alike and misspelled words, as well as other hair tinter errors may be contained in the documentation. 03/01/25 1335 Cosigner Signature (if applicable): CC: ~ Signed [facility]05-16-2025 Progress note Author Patricia Garcia [facility] Note Date/Time February 22, 2025 2:34p m [facility] [address] [place] [address] Progress Note - Wound Care 02/22/25 1426 MR#: [id number] Acct: [id number] Name: ESTEBAN URBINA Rep #:[id number] : 1955 69 From: Patricia Garcia DO PCP: Dr. Patricia Garcia, DO Status:REG RCR Location: History of Present Illness Date of Service: 02/22/25 Chief Complaint: venous ulcers of left lower extremity History of Wound: Mauricio is a 69 yo gentleman who is here today for evaluation of ulcers to to his bilateral lower legs. He has been treated multiple times in thepast at the wound healing center for similar ulcers. The left LE ulcer started after he developed increased swelling and blisters of left leg in October and the right leg started sometime at the end of October. He was seen at PCP's office a culture was taken and it was resistant to several antibiotics. He was treated initially with Levaquin but had myalgias and then was treated with doxycycline which he finished 2 days ago. He denies improvementand is having swelling to his left calf and thigh. He has been having swelling to both lower extremities for many years and it has worsened over the last few months. He has not been compliant with compression. He has had increased pain especially in the left leg. He has clear yellow drainage and redness without odor or warmth. He is anti-coagulated on coumadin. He has been washing with Dial soap and witch ifrah. He had been using Collagen at times and using Calcium Alginate and covering with ABD pads during October. He was treated with 3M compression and Aquacel Ag. He was referred to the wound center for ongoing treatment. His ulcers have moderate to heavy drainage. He was in the hospital from 11/30/22 until 12/09/22 for treatment of cellulitis andedema. He underwent treatment with Vancomycin and IV lasix and compression. Discharged on 12/09/22. He returned to his assisted living apartment on Tuesday12/21/22. Subjective Subjective Muaricio is a 69-year-old male with longstanding history of chronic venous ulcerationto the left lower extremity and now a right lower extremity venous ulcer that isnearly circumferential. There has been improvement in both ulcers over the last week. He is more compliant with elevation. Wound culture from 12/07/24 was positive for Providencia stuartii, Vancomycin resistant E. Faecalis, Corynebacterium striatum and completed Augmentin orally. His edema is better this week and he is tolerating Circaid compression. 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 He continues to use his lymphedema pumps but continues to have painwith use of these pumps. 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 Objective Data Objective Data Vital Signs: Vital Signs Temp Pulse Resp BP O2 Del Method 96.1 F L 67 18 117/73 Room Air 02/08/25 11:17 02/22/25 10:28 02/22/25 10:28 02/22/25 10:28 02/22/25 10:28 Oxygen Delivery Method Room Air Physical Exam Const alert, oriented x3 and no apparent distress General Appearance: cooperative and comfortable HEENT normocephalic and head/scalp atraumatic Lymph Lymphatic: lymphedema moderate Resp normal respiratory effort Effort and Inspection: able to speak in complete sentences Cardio regular rate and regular rhythm Extremity Extremity Narrative: His ulcers are painful and the right lower leg remains more swollen than his left but there is good granulation tissue throughout and slough that is nearly completely removed post - debridement, edges of ulcers are beveled without rolled borders General Extremity: edema bilateral lower extremity Details: severe Skin General Skin Exam: venous stasis and dermatitis Wounds: wounds noted Wound Narrative: as in clinical panel, + devitalized tissue, there is increased depth, + granulation tissue bilateral ulcer with good granulation and moderate to heavy slough prior to debridement and minimal post debridement Psych mental status grossly normal, thought process normal, cooperative and affect normal Debridement Note Debridement Note Wound debrided: left medial LE ulcer Laterality: Left Type of Debridement: Excisional debridement Anesthesia Used: 5% Lidocaine Gel and Cetacaine Depth: Down to and including healthy tissue and in the subcutaneous layer Percentage of wound debrided: 100 Instrument Used: - (Misonix ultrasonic debridement) Tissue Removed: Yellow slough, devitalized tissue Severity: Fat Layer Exposed Amount of bleeding with debridement: Mild Bleeding Controlled with: Compression and gauze Patient tolerated procedure: Patient tolerated procedure well Post-Debridement Measurements and Additional Note: Post-Debridement Measurements/Treatment WC - Nurse 1 - General Ulcer Assessment Start: 02/08/25 11:17 Freq: Status: Active Protocol: ONDINA Activity Type Activity Date Activity User E-sign Co-sign Detail Recorded Client Recorded Date Recorded By Document 02/08/25 11:17 KW [id number] 02/08/25 11:38 KW Document 02/15/25 11:47 KW [id number] 02/15/25 12:08 KW Document 02/22/25 10:28 KW [id number] 02/22/25 10:45 KW 02/08/25 02/15/25 02/22/25 11:17 11:47 10:28 - Today's Visit Information Type of service Follow-up Visit Follow-up Visit Follow-up Visit (Physician/APPLICATIONS SPECIALIST (Physician/APPLICATIONS SPECIALIST (Physician/APPLICATIONS SPECIALIST ) ) ) Arrival Mode Ambulatory, Ambulatory, Ambulatory, Walker Walker Walker Patient Identification Verified (Name & Yes Yes Yes ) Vital Signs Temperature (97.8 F-99.1 F) 96.1 F L Temperature Source Temporal Temporal Pulse Rate (60-100) 65 63 67 Pulse Location Monitor Monitor Monitor Respiratory Rate (12-18) 16 18 18 Respiratory rate source Observation Observation Observation Oxygen Delivery Method Room Air Room Air Room Air Blood Pressure (90/60-120/80) 143/68 H 144/75 H 117/73 Blood Pressure Mean (mm Hg) 93 98 87 Source Monitor Monitor Monitor Position Semi-Fowlers Semi-Fowlers Semi-Fowlers Blood Pressure Location Right Arm Right Arm Left Arm History Since Last Visit- (Skip if this is Patient's initial visit) Have you changed medications since your No No No last visit? Any new allergies or adverse reactions No No No Had a fall/change in ADL's that may No No No increase risk of falls Signs or symptoms of abuse and/or No No No neglect since last visit Have you been in the hospital since your No No No last visit? Has dressing in place as prescribed Yes Yes Yes Has compression in place as prescribed Yes Yes Yes Has offloadiing in place as prescribed N/A N/A N/A Experienced any changes in pain level or No No No management Left Footwear Regular Shoe Regular Shoe Regular Shoe Right Footwear Regular Shoe Regular Shoe Regular Shoe Pain Scale: 0-10 Numeric Is Patient Pain Free? Yes Yes Yes - Nurse 1 - General Ulcer Measurement Start: 02/08/25 11:17 Freq: Status: Active Protocol: Activity Type Activity Date Activity User E-sign Co-sign Detail Recorded Client Recorded Date Recorded By Document 02/08/25 11:17 KW [id number] 02/08/25 11:38 KW Document 02/15/25 11:47 KW [id number] 02/15/25 12:08 KW Document 02/22/25 10:28 KW [id number] 02/22/25 10:45 KW 02/08/25 02/15/25 02/22/25 11:17 11:47 10:28 Wound Center Nurse 1 #24 Left Lateral Leg -Current Size (cm) - Length 2.7 0.1 2.3 -Current Size (cm) - Width 3.2 0.1 1.4 -Current Size (cm) - Depth 0.1 0.1 0.2 -Total Square Cm 8.64 0.01 3.22 -Date of Last Picture (Recall this 02/15/25 field) -Exudate Amt Small Large Medium -Exudate Type Serosanguineous Serosanguineous Serosanguineous -Wound Margin Distinct, Distinct, Distinct, Outline Outline Outline Attached Attached Attached -Granulation Amt Medium (34-66%) Medium (34-66%) Large (67-100%) -Granulation Quality Lingle Red Red -Necrosis Amt Small (1-33%) Medium (34-66%) Small (1-33%) -Necrotic Tissue Type Adherent Slough Adherent Slough Adherent Slough -Texture (Marie-wound Skin Appearance) Assessed Assessed Assessed -Moisture (Marie-wound Skin Appearance) Assessed Assessed Assessed -Color (Marie-wound Skin Appearance) Assessed, Assessed, Assessed, Hemosiderin Hemosiderin Hemosiderin Staining Staining Staining -Temperature (Marie-wound Skin No Abnormality No Abnormality No Abnormality Appearance) (Pt Warm) (Pt Warm) (Pt Warm) -Tenderness on Palpation (Marie-wound No No No Skin Appearance) -Ulcer Cleansing Soap and Water Soap and Water Soap and Water -Foul Odor after Cleansing No No No -Anesthetic Used 5% Lidocaine 5% Lidocaine 5% Lidocaine Gel Gel Gel #22 R Medial Lateral -Current Size (cm) - Length 28 0.1 10.5 -Current Size (cm) - Width 10.5 0.1 28.5 -Current Size (cm) - Depth 0.2 0.1 0.2 -Total Square Cm 294.0 0.01 299.25 -Date of Last Picture (Recall this 02/15/25 field) -Exudate Amt Large Large Large -Exudate Type Serosanguineous Serosanguineous Serosanguineous -Wound Margin Distinct, Distinct, Thickened Outline Outline Attached Attached -Granulation Amt Large (67-100%) Medium (34-66%) Large (67-100%) -Granulation Quality Red Red Red -Necrosis Amt Medium (34-66%) Medium (34-66%) Medium (34-66%) -Necrotic Tissue Type Adherent Slough Adherent Slough Adherent Slough -Texture (Marie-wound Skin Appearance) Assessed Assessed Assessed -Moisture (Marie-wound Skin Appearance) Assessed Assessed Assessed -Color (Marie-wound Skin Appearance) Assessed, Assessed, Assessed, Hemosiderin Hemosiderin Hemosiderin Staining Staining Staining -Temperature (Marie-wound Skin No Abnormality No Abnormality No Abnormality Appearance) (Pt Warm) (Pt Warm) (Pt Warm) -Tenderness on Palpation (Marie-wound No No No Skin Appearance) -Ulcer Cleansing Soap and Water Soap and Water Soap and Water -Foul Odor after Cleansing No No No -Anesthetic Used 5% Lidocaine 5% Lidocaine 5% Lidocaine Gel Gel Gel #18 Left medial LE cluster -Current Size (cm) - Length 15 0.1 9 -Current Size (cm) - Width 8.5 0.1 13.5 -Current Size (cm) - Depth 0.2 0.1 0.2 -Total Square Cm 127.5 0.01 121.5 -Date of Last Picture (Recall this 02/15/25 field) -Exudate Amt Large Large Medium -Exudate Type Serosanguineous Serosanguineous Serosanguineous -Wound Margin Distinct, Distinct, Distinct, Outline Outline Outline Attached Attached Attached -Granulation Amt Large (67-100%) Medium (34-66%) Large (67-100%) -Granulation Quality Red Red Red -Necrosis Amt Medium (34-66%) Medium (34-66%) Small (1-33%) -Necrotic Tissue Type Adherent Slough Adherent Slough Adherent Slough -Texture (Marie-wound Skin Appearance) Assessed Assessed Assessed -Moisture (Marie-wound Skin Appearance) Assessed Assessed Assessed -Color (Marie-wound Skin Appearance) Assessed, Assessed, Assessed, Hemosiderin Erythema, Erythema, Staining Hemosiderin Hemosiderin Staining Staining -Temperature (Marie-wound Skin No Abnormality No Abnormality No Abnormality Appearance) (Pt Warm) (Pt Warm) (Pt Warm) -Tenderness on Palpation (Marie-wound No No No Skin Appearance) -Ulcer Cleansing Soap and Water Soap and Water Soap and Water -Foul Odor after Cleansing No No No -Anesthetic Used 5% Lidocaine 5% Lidocaine 5% Lidocaine Gel Gel Gel Right Calf (cm) 47.2 44.5 45 Right Ankle (cm) 30.5 30 30 Left Calf (cm) 44 42 42.5 Left Ankle (cm) 29 30 30.5 WC - Nurse 2 - General Ulcer CM Notes Start: 02/08/25 11:17 Freq: Status: Active Protocol: Activity Type Activity Date Activity User E-sign Co-sign Detail Recorded Client Recorded Date Recorded By Document 02/08/25 12:03 [id number] 02/08/25 12:16 Document 02/15/25 12:48 [id number] 02/15/25 13:01 Document 02/22/25 11:20 [id number] 02/22/25 11:32 02/08/25 02/15/25 02/22/25 12:03 12:48 11:20 Wound Center Nurse 2 #24 Left Lateral Leg -Time 12:03 12:48 11:21 -Correct Patient Yes Yes Yes -Correct Side, Site, Position Yes Yes Yes -Correct Procedure Yes Yes Yes -Procedure Performed Yes Yes Yes -Type of Procedure Debridement Debridement Debridement -Clinical Debridement Subcutaneous Subcutaneous Subcutaneous -Tissue Removed Subcutaneous Subcutaneous Subcutaneous -Post Debridement (cm) - Length 2.4 2.1 2.3 -Post Debridement (cm) - Width 1.6 1.3 1.5 -Post Debridement (cm) - Depth 0.1 0.1 0.1 -Total Square (Post) (cm) 3.84 2.73 3.45 -Area of Debridement (cm) - Length 2.4 2.1 2.3 -Area of Debridement (cm) - Width 1.6 1.3 1.5 -Total Square (Area) (cm) 3.84 2.73 3.45 -Tunneling No No No -Undermining/Tunneling No No No -Circular Undermining No No No -Wound/Ulcer Outcome Not Healed Not Healed Not Healed -Ulcer Cleansing Rinsed/ Rinsed/ Rinsed/ Irrigated with Irrigated with Irrigated with Saline Saline Saline -Foul Odor after Cleansing No No No -Bioengineered Tissue No No No -Bleeding Controlled with Pressure Pressure Pressure -Treatment Response Procedure Procedure Procedure Tolerated Well Tolerated Well Tolerated Well -Offloading No No No -Assistive Device(s) Walker -Debridement - Subq, 1st 20sq cm No No No #22 R Medial Lateral -Time 12:04 12:48 11:21 -Correct Patient Yes Yes Yes -Correct Side, Site, Position Yes Yes Yes -Correct Procedure Yes Yes Yes -Procedure Performed Yes Yes Yes -Type of Procedure Debridement Debridement Debridement -Clinical Debridement Subcutaneous Subcutaneous Subcutaneous -Tissue Removed Subcutaneous Subcutaneous Subcutaneous -Post Debridement (cm) - Length 11.8 11.5 11.5 -Post Debridement (cm) - Width 27.0 26.0 27.0 -Post Debridement (cm) - Depth 0.1 0.1 0.1 -Total Square (Post) (cm) 318.60 299.00 310.50 -Area of Debridement (cm) - Length 11.8 11.5 -Area of Debridement (cm) - Width 27.0 27.0 -Total Square (Area) (cm) 318.60 310.50 -Tunneling No No No -Undermining/Tunneling No No No -Circular Undermining No No No -Wound/Ulcer Outcome Not Healed Not Healed Not Healed -Ulcer Cleansing Rinsed/ Rinsed/ Rinsed/ Irrigated with Irrigated with Irrigated with Saline Saline Saline -Foul Odor after Cleansing No No No -Bioengineered Tissue No No No -Bleeding Controlled with Pressure Pressure Pressure -Treatment Response Procedure Procedure Procedure Tolerated Well Tolerated Well Tolerated Well -Offloading No No No -Assistive Device(s) Walker -Debridement - Subq, 1st 20sq cm No No No #18 Left medial LE cluster -Time 12:04 12:49 11:22 -Correct Patient Yes Yes Yes -Correct Side, Site, Position Yes Yes Yes -Correct Procedure Yes Yes Yes -Procedure Performed Yes Yes Yes -Type of Procedure Debridement Debridement Debridement -Clinical Debridement Subcutaneous Subcutaneous Subcutaneous -Tissue Removed Subcutaneous Subcutaneous Subcutaneous -Post Debridement (cm) - Length 8.5 8.5 8.6 -Post Debridement (cm) - Width 12.8 12.9 12.8 -Post Debridement (cm) - Depth 0.1 0.1 0.1 -Total Square (Post) (cm) 108.80 109.65 110.08 -Area of Debridement (cm) - Length 8.5 8.5 8.6 -Area of Debridement (cm) - Width 12.8 12.9 12.8 -Total Square (Area) (cm) 108.80 109.65 110.08 -Tunneling No No No -Undermining/Tunneling No No No -Circular Undermining No No No -Wound/Ulcer Outcome Not Healed Not Healed Not Healed -Ulcer Cleansing Rinsed/ Rinsed/ Rinsed/ Irrigated with Irrigated with Irrigated with Saline Saline Saline -Foul Odor after Cleansing No No No -Bioengineered Tissue No No No -Bleeding Controlled with Pressure Pressure Pressure -Treatment Response Procedure Procedure Procedure Tolerated Well Tolerated Well Tolerated Well -Offloading No No No -Debridement - Subq, 1st 20sq cm Yes Yes Yes -Debridement, SubQ, ea addt'l 20sq cm 21 20 21 or part thereof Pain Scale: 0-10 Numeric Is Patient Pain Free? Yes Yes Yes - Nurse 3 - General Ulcer D/C NN Start: 02/08/25 11:17 Freq: Status: Active Protocol: Activity Type Activity Date Activity User E-sign Co-sign Detail Recorded Client Recorded Date Recorded By Document 02/08/25 12:41 [id number] 02/08/25 12:44 RB 02/08/25 12:41 Wound Care Center Nurse 3 #24 Left Lateral Leg -Ulcer Cleansing Rinsed/ Irrigated with Saline -Primary Dressing Applied Aquacel Extra -Other Dressing ABD -Primary Dressing Covered/Secured with Dry Gauze & Roll Gauze, Secured with Tape -Aquacel Extra 1 #22 R Medial Lateral -Ulcer Cleansing Rinsed/ Irrigated with Saline -Primary Dressing Applied Aquacel Extra, Optilok 6.5x10 -Primary Dressing Covered/Secured with Dry Gauze & Roll Gauze, Secured with Tape -Aquacel Extra 1 -Optilok 6.5x10 1 #18 Left medial LE cluster -Ulcer Cleansing Rinsed/ Irrigated with Saline -Primary Dressing Applied Aquacel Extra, Optilok 6.5x10 -Primary Dressing Covered/Secured with Dry Gauze & Roll Gauze, Secured with Tape -Aquacel Extra 1 -Optilok 6.5x10 1 BLE -Stockings Yes: pt own circaids Treatment Response Procedure Tolerated Well Pain Scale: 0-10 Numeric Is Patient Pain Free? Yes - Visit Discharge Discharge Condition Stable Ambulatory Status Ambulatory, Walker Transportation Private Auto Medication Reconcilliation completed & No provided to patient/care provider Clinical Summary of Care Provided Yes Additional Wound Wound debrided: right lateral leg Laterality: Right Type of Debridement: Excisional debridement Anesthesia Used: 5% Lidocaine Gel and Cetacaine Depth: Down to and including healthy tissue and in the subcutaneous layer Percentage of wound debrided: 100 Instrument Used: - (Misonix ultrasonic debridement) Tissue Removed: Yellow slough, devitalized tissue Severity: Fat Layer Exposed Amount of bleeding with debridement: Mild Bleeding Controlled with: Compression and gauze Patient tolerated procedure: Patient tolerated procedure well Additional Wound Wound debrided: right medial leg Laterality: Right Type of Debridement: Excisional debridement Anesthesia Used: 5% Lidocaine Gel and Cetacaine Depth: Down to and including healthy tissue and in the subcutaneous layer Percentage of wound debrided: 100 Instrument Used: - (Misonix ultrasonic debridement) Tissue Removed: Yellow slough, devitalized tissue Severity: Fat Layer Exposed Amount of bleeding with debridement: Mild Bleeding Controlled with: Compression and gauze Patient tolerated procedure: Patient tolerated procedure well Assessment/Plan Assessment/Plan (1) Lymphedema: CODE(S): I89.0 - Lymphedema, not elsewhere classified (2) Hypertension: CODE(S): I10 - Essential (primary) hypertension QUALIFIERS: Hypertension type: primary hypertension Qualified Code(s): I10 - Essential (primary) hypertension (3) Hyperlipidemia: CODE(S): E78.5 - Hyperlipidemia, unspecified QUALIFIERS: Hyperlipidemia type: mixed hyperlipidemia Qualified Code(s): E78.2 - Mixed hyperlipidemia (4) History of DVT (deep vein thrombosis): CODE(S): Z86.718 - Personal history of other venous thrombosis and embolism (5) Venous insufficiency (chronic) (peripheral): CODE(S): I87.2 - Venous insufficiency (chronic) (peripheral) (6) Venous ulcer of left lower extremity with varicose veins: CODE(S): I83.029 - Varicose veins of left lower extremity with ulcer of unspecified site (7) Edema: CODE(S): R60.9 - Edema, unspecified QUALIFIERS: Edema type: unspecified Qualified Code(s): R60.9 - Edema, unspecified (8) 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 At home wound-care instructions: Will use Circaid compression garments with calcium alginate and super absorber to right LE and ABD to left LE changed everyother day. Due to his chronic lymphedema and being unable to don traditional compression stockings and the presence of venous ulcers on his LE b/l, it is medically necessary for him to have Circaid compression garments. He is using Circaid compression to both legs. I suspect he is not very compliant with his lymphedemapumps and not getting adequate compression with tubigrips. Due to the delayed progress in wound healing of his venous ulcers, we discussed applying for advanced wound healing product for healing his ulcer. Due to the size of his ulcer, Theraskin application approval was requested from his insurance as it is medically necessary for salvaging his limb and healing his ulcer. He underwent 2 applications of Theraskin to this ulcer. Since applicationof Theraskin he had much improvement in epithelialization of his ulcer even though the overall size is not significantly changed there was progress. He is using Circaid compression wraps. Off-loading: The patient was instructed to avoid pressure and friction on the affected areas. Reposition every 2 hours at minimum. Avoid prolonged standing and/or dangling of legs. When seated, feet should be elevated at chest level. Frequent ambulation is encouraged. Encouraged lymphedema pump use. Diet: Patient encouraged to increase protein intake while taking caution to avoid high carbohydrate and/or sugar intake. Labs/cultures/imaging: Wound culture showed Pseudomonas, Escherichia hermannii, Raoultella planticola, Vancomycin Resist. E. faecalis, Alcaligenes faecalis ssp faeca, Staphylococcus cohnii urealyti and anaerobic bacteria on 06/15/24 and he completed on Levofloxacin and Augmentin. Wound culture taken today on right lateral ulcer which showed Raoultella planticola, Staph hemolyticus, staph epidermidis and morganella morganii but no anaeroobic bacteria, Levofloxacin anddoxycyline were prescribed based on culture results. Labs ordered 10/19/2024. Vitamin D was low A1C 5.4% Wound culture from 12/07/24 was positive for Providencia stuartii, Vancomycin resistant E. Faecalis, Corynebacterium striatum and completed Augmentin orally. Follow-up: Return in 1 week for wound care follow up and have dressing changed by home health Tuesday. Return sooner or report to the emergency room should symptoms worsen, or new symptoms arise. Note: [employer] speech recognition hair tinter software was used to create portions of this document. Sound-alike and misspelled words, as well as other hair tinter errors may be contained in the documentation. 02/22/25 1434 <Electronically signed by Patricia Garcia DO> Cosigner Signature (if applicable): CC: ~ Signed [facility] Work Phone: [phone] Progress note [facility] [address] [place] [address] Progress Note - Wound Care 02/22/25 1426 MR#: [id number] Acct: [id number] Name: ESTEBAN URBINA Rep #:[id number] : 1955 69 From: Patricia Garcia DO PCP: Dr. Patricia Garcia, Status:REG RCR Location: History of Present Illness Date of Service: 02/22/25 Chief Complaint: venous ulcers of left lower extremity History of Wound: Mauricio is a 69 yo gentleman who is here today for evaluation of ulcers to to his bilateral lower legs. [facility]. The left LE ulcer started after he developed increased swelling and blisters of left leg in Octoberand the right leg started sometime at the end of October. He was seen at PCP's office a culture was taken and it was resistant to several antibiotics. He wastreated initially with Levaquin but had myalgias and then was treated with doxycycline which he finished 2 days ago. He denies improvementand is having swelling to his left calf and thigh. He has been having swelling to both lower extremities for many years and it has worsened over the last few chirag hs. He has not been compliant with compression. He has had increased pain especially in the left leg. He has clear yellow drainage and redness without odor or warmth. He is anti- coagulated on coumadin. He has been washing with Dial soap and witch ifrah. He had been using Collagen at times and using Calcium Alginate and covering with ABD pads during October. He was treated with 3M compression and Aquacel Ag. He was referred to the wound center for ongoing treatment. His ulcers have moderate to heavy drainage. He was in the hospital from 11/30/22 until 12/09/22 for treatment of cellulitis andedema. He underwenttreatment with Vancomycin and IV lasix and compression. Discharged on 12/09/22. He returned to his assisted living apartment on Tuesday12/21/22. Subjective Subjective Mauricio is a 69-year-old male with longstanding history of chronic venous ulcerationto the left lower extremity and now a right lower extremity venous ulcer that isnearly circumferential. There has been improvement in both ulcers over the last week. He is more compliant with elevation. Wound culture from 12/07/24 was positive for Providencia stuartii, Vancomycin resistant E. Faecalis,Corynebacterium striatum and completed Augmentin orally. His edema is better this week and he is tolerating Circaid compression. 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 He continues to use his lymphedema pumps but continues to have painwith use of these pumps. 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 Objective Data Objective Data Vital Signs: Vital Signs Temp Pulse Resp BP O2 Del Method 96.1 F L 67 18 117/73 Room Air 02/08/25 11:17 02/22/25 10:28 02/22/25 10:28 02/22/25 10:28 02/22/25 10:28 Oxygen Delivery Method Room Air Physical Exam Const alert, oriented x3 and no apparent distress General Appearance: cooperative and comfortable HEENT normocephalic and head/scalp atraumatic Lymph Lymphatic: lymphedema moderate Resp normal respiratory effort Effort and Inspection: able to speak in complete sentences Cardio regular rate and regular rhythm Extremity Extremity Narrative: His ulcers are painful and the right lower leg remains more swollen than his left but there is goodgranulation tissue throughout and slough that is nearly completely removed post - debridement, edges of ulcers are beveled without rolled borders General Extremity: edema bilateral lower extremity Details: severe Skin General Skin Exam: venous stasis and dermatitis Wounds: wounds noted Wound Narrative: as in clinical panel, + devitalized tissue, there is increased depth, + granulation tissue bilateral ulcer with good granulation and moderate to heavy slough prior to debridement and minimalpost debridement Psych mental status grossly normal, thought process normal, cooperative and affect normal Debridement Note Debridement Note Wound debrided: left medial LE ulcer Laterality: Left Type of Debridement: Excisional debridement Anesthesia Used: 5% Lidocaine Gel and Cetacaine Depth: Down to and including healthy tissue and in the subcutaneous layer Percentage of wound debrided: 100 Instrument Used: - (Misonix ultrasonic debridement) Tissue Removed: Yellow slough, devitalized tissue Severity: Fat Layer Exposed Amount of bleeding with debridement: Mild Bleeding Controlled with: Compression and gauze Patient tolerated procedure: Patient tolerated procedure well Post-Debridement Measurements and Additional Note: Post-Debridement Measurements/Treatment - Nurse 1 - General Ulcer Assessment Start: 02/08/25 11:17 Freq: Status: Active Protocol: .MARIAJOSE Activity Type Activity Date Activity User E-sign Co-sign Detail Recorded Client Recorded Date Recorded By Document 02/08/25 11:17 KW [id number] 02/08/25 11:38 KW Document 02/15/25 11:47 KW [id number] 02/15/25 12:08 KW Document 02/22/25 10:28 KW [id number] 02/22/25 10:45 KW 02/08/25 02/15/25 02/22/25 11:17 11:47 10:28 - Today's Visit Information Type of service Follow-up Visit Follow-up Visit Follow-up Visit (Physician/APPLICATIONS SPECIALIST (Physician/APPLICATIONS SPECIALIST (Physician/APPLICATIONS SPECIALIST ) ) ) Arrival Mode Ambulatory, Ambulatory, Ambulatory, Walker Walker Walker Patient Identification Verified (Name & Yes Yes Yes ) Vital Signs Temperature (97.8 F-99.1 F) 96.1 F L Temperature Source Temporal Temporal Pulse Rate (60-100) 65 63 67 Pulse Location Monitor Monitor Monitor Respiratory Rate (12-18) 16 18 18 Respiratory rate source Observation Observation Observation Oxygen Delivery Method Room Air Room Air Room Air Blood Pressure (90/60-120/80) 143/68 H 144/75 H 117/73 Blood Pressure Mean (mm Hg) 93 98 87 Source Monitor Monitor Monitor Position Semi-Fowlers Semi-Fowlers Semi-Fowlers Blood Pressure Location Right Arm Right Arm Left Arm History Since Last Visit- (Skip if this is Patient's initial visit) Have you changed medications since your No No No last visit? Any new allergies or adverse reactions No No No Had a fall/change in ADL's that may No No No increase risk of falls Signs or symptoms of abuse and/or No No No neglect since last visit Have you been in the hospital since your No No No last visit? Has dressing in place as prescribed Yes Yes Yes Has compression in place as prescribed Yes Yes Yes Has offloadiing in place as prescribed N/A N/A N/A Experienced any changes in pain level or No No No management Left Footwear Regular Shoe Regular Shoe Regular Shoe Right Footwear Regular Shoe Regular Shoe Regular Shoe Pain Scale: 0-10 Numeric Is Patient Pain Free? Yes Yes Yes WC - Nurse 1 - General Ulcer Measurement Start: 02/08/25 11:17 Freq: Status: Active Protocol: Activity Type Activity Date Activity User E-sign Co-sign Detail Recorded Client Recorded Date Recorded By Document 02/08/25 11:17 KW [id number] 02/08/25 11:38 KW Document 02/15/25 11:47 KW [id number] 02/15/25 12:08 KW Document 02/22/25 10:28 KW [id number] 02/22/25 10:45 KW 02/08/25 02/15/25 02/22/25 11:17 11:47 10:28 Wound Center Nurse 1 #24 Left Lateral Leg -Current Size (cm) - Length 2.7 0.1 2.3 -Current Size (cm) - Width 3.2 0.1 1.4 -Current Size (cm) - Depth 0.1 0.1 0.2 -Total Square Cm 8.64 0.01 3.22 -Date of Last Picture (Recall this 02/15/25 field) -Exudate Amt Small Large Medium -Exudate Type Serosanguineous Serosanguineous Serosanguineous -Wound Margin Distinct, Distinct, Distinct, Outline Outline Outline Attached Attached Attached -Granulation Amt Medium (34-66%) Medium (34-66%) Large (67-100%) -Granulation Quality Lingle Red Red -Necrosis Amt Small (1-33%) Medium (34-66%) Small (1-33%) -Necrotic Tissue Type Adherent Slough Adherent Slough Adherent Slough -Texture (Marie-wound Skin Appearance) Assessed Assessed Assessed -Moisture (Marie-wound Skin Appearance) Assessed Assessed Assessed -Color (Marie-wound Skin Appearance) Assessed, Assessed, Assessed, Hemosiderin Hemosiderin Hemosiderin Staining Staining Staining -Temperature (Marie-wound Skin No Abnormality No Abnormality No Abnormality Appearance) (Pt Warm) (Pt Warm) (Pt Warm) -Tenderness on Palpation (Marie-wound No No No Skin Appearance) -Ulcer Cleansing Soap and Water Soap and Water Soap and Water -Foul Odor after Cleansing No No No -Anesthetic Used 5% Lidocaine 5% Lidocaine 5% Lidocaine Gel Gel Gel #22 R Medial Lateral -Current Size (cm) - Length 28 0.1 10.5 -Current Size (cm) - Width 10.5 0.1 28.5 -Current Size (cm) - Depth 0.2 0.1 0.2 -Total Square Cm 294.0 0.01 299.25 -Date of Last Picture (Recall this 02/15/25 field) -Exudate Amt Large Large Large -Exudate Type Serosanguineous Serosanguineous Serosanguineous -Wound Margin Distinct, Distinct, Thickened Outline Outline Attached Attached -Granulation Amt Large (67-100%) Medium (34-66%) Large (67-100%) -Granulation Quality Red Red Red -Necrosis Amt Medium (34-66%) Medium (34-66%) Medium (34-66%) -Necrotic Tissue Type Adherent Slough Adherent Slough Adherent Slough -Texture (Marie-wound Skin Appearance) Assessed Assessed Assessed -Moisture (Marie-wound Skin Appearance) Assessed Assessed Assessed -Color (Marie-wound Skin Appearance) Assessed, Assessed, Assessed, Hemosiderin Hemosiderin Hemosiderin Staining Staining Staining -Temperature (Marie-wound Skin No Abnormality No Abnormality No Abnormality Appearance) (Pt Warm) (Pt Warm) (Pt Warm) -Tenderness on Palpation (Marie-wound No No No Skin Appearance) -Ulcer Cleansing Soap and Water Soap and Water Soap and Water -Foul Odor after Cleansing No No No -Anesthetic Used 5% Lidocaine 5% Lidocaine 5% Lidocaine Gel Gel Gel #18 Left medial LE cluster -Current Size (cm) - Length 15 0.1 9 -Current Size (cm) - Width 8.5 0.1 13.5 -Current Size (cm) - Depth 0.2 0.1 0.2 -Total Square Cm 127.5 0.01 121.5 -Date of Last Picture (Recall this 02/15/25 field) -Exudate Amt Large Large Medium -Exudate Type Serosanguineous Serosanguineous Serosanguineous -Wound Margin Distinct, Distinct, Distinct, Outline Outline Outline Attached Attached Attached -Granulation Amt Large (67-100%) Medium (34-66%) Large (67-100%) -Granulation Quality Red Red Red -Necrosis Amt Medium (34-66%) Medium (34-66%) Small (1-33%) -Necrotic Tissue Type Adherent Slough Adherent Slough Adherent Slough -Texture (Marie-wound Skin Appearance) Assessed Assessed Assessed -Moisture (Marie-wound Skin Appearance) Assessed Assessed Assessed -Color (Marie-wound Skin Appearance) Assessed, Assessed, Assessed, Hemosiderin Erythema, Erythema, Staining Hemosiderin Hemosiderin Staining Staining -Temperature (Marie-wound Skin No Abnormality No Abnormality No Abnormality Appearance) (Pt Warm) (Pt Warm) (Pt Warm) -Tenderness on Palpation (Marie-wound No No No Skin Appearance) -Ulcer Cleansing Soap and Water Soap and Water Soap and Water -Foul Odor after Cleansing No No No -Anesthetic Used 5% Lidocaine 5% Lidocaine 5% Lidocaine Gel Gel Gel Right Calf (cm) 47.2 44.5 45 Right Ankle (cm) 30.5 30 30 Left Calf (cm) 44 42 42.5 Left Ankle (cm) 29 30 30.5 WC - Nurse 2 - General Ulcer CM Notes Start: 02/08/25 11:17 Freq: Status: Active Protocol: Activity Type Activity Date Activity User E-sign Co-sign Detail Recorded Client Recorded Date Recorded By Document 02/08/25 12:03 [id number] 02/08/25 12:16 Document 02/15/25 12:48 [id number] 02/15/25 13:01 Document 02/22/25 11:20 [id number] 02/22/25 11:32 05/12/0402/15/25 02/22/25 12:03 12:48 11:20 Wound Center Nurse 2 #24 Left Lateral Leg -Time 12:03 12:48 11:21 -Correct Patient Yes Yes Yes -Correct Side, Site, Position Yes Yes Yes -Correct Procedure Yes Yes Yes -Procedure Performed Yes Yes Yes -Type of Procedure Debridement Debridement Debridement -Clinical Debridement Subcutaneous Subcutaneous Subcutaneous -Tissue Removed Subcutaneous Subcutaneous Subcutaneous -Post Debridement (cm) - Length 2.4 2.1 2.3 -Post Debridement (cm) - Width 1.6 1.3 1.5 -Post Debridement (cm) - Depth 0.1 0.1 0.1 -Total Square (Post) (cm) 3.84 2.73 3.45 -Area of Debridement (cm) - Length 2.4 2.1 2.3 -Area of Debridement (cm) - Width 1.6 1.3 1.5 -Total Square (Area) (cm) 3.84 2.73 3.45 -Tunneling No No No -Undermining/Tunneling No No No -Circular Undermining No No No -Wound/Ulcer Outcome Not Healed Not Healed Not Healed -Ulcer Cleansing Rinsed/ Rinsed/ Rinsed/ Irrigated with Irrigated with Irrigated with Saline Saline Saline -Foul Odor after Cleansing No No No -Bioengineered Tissue No No No -Bleeding Controlled with Pressure Pressure Pressure -Treatment Response Procedure Procedure Procedure Tolerated Well Tolerated Well Tolerated Well -Offloading No No No -Assistive Device(s) Walker -Debridement - Subq, 1st 20sq cm No No No #22 R Medial Lateral -Time 12:04 12:48 11:21 -Correct Patient Yes Yes Yes -Correct Side, Site, Position Yes Yes Yes -Correct Procedure Yes Yes Yes -Procedure Performed Yes Yes Yes -Type of Procedure Debridement Debridement Debridement -Clinical Debridement Subcutaneous Subcutaneous Subcutaneous -Tissue Removed Subcutaneous Subcutaneous Subcutaneous -Post Debridement (cm) - Length 11.8 11.5 11.5 -Post Debridement (cm) - Width 27.0 26.0 27.0 -Post Debridement (cm) - Depth 0.1 0.1 0.1 -Total Square (Post) (cm) 318.60 299.00 310.50 -Area of Debridement (cm) - Length 11.8 11.5 -Area of Debridement (cm) - Width 27.0 27.0 -Total Square (Area) (cm) 318.60 310.50 -Tunneling No No No -Undermining/Tunneling No No No -Circular Undermining No No No -Wound/Ulcer Outcome Not Healed Not Healed Not Healed -Ulcer Cleansing Rinsed/ Rinsed/ Rinsed/ Irrigated with Irrigated with Irrigated with Saline Saline Saline -Foul Odor after Cleansing No No No -Bioengineered Tissue No No No -Bleeding Controlled with Pressure Pressure Pressure -Treatment Response Procedure Procedure Procedure Tolerated Well Tolerated Well Tolerated Well -Offloading No No No -Assistive Device(s) Walker -Debridement - Subq, 1st 20sq cm No No No #18 Left medial LE cluster -Time 12:04 12:49 11:22 -Correct Patient Yes Yes Yes -Correct Side, Site, Position Yes Yes Yes -Correct Procedure Yes Yes Yes -Procedure Performed Yes Yes Yes -Type of Procedure Debridement Debridement Debridement -Clinical Debridement Subcutaneous Subcutaneous Subcutaneous -Tissue Removed Subcutaneous Subcutaneous Subcutaneous -Post Debridement (cm) - Length 8.5 8.5 8.6 -Post Debridement (cm) - Width 12.8 12.9 12.8 -Post Debridement (cm) - Depth 0.1 0.1 0.1 -Total Square (Post) (cm) 108.80 109.65 110.08 -Area of Debridement (cm) - Length 8.5 8.5 8.6 -Area of Debridement (cm) - Width 12.8 12.9 12.8 -Total Square (Area) (cm) 108.80 109.65 110.08 -Tunneling No No No -Undermining/Tunneling No No No -Circular Undermining No No No -Wound/Ulcer Outcome Not Healed Not Healed Not Healed -Ulcer Cleansing Rinsed/ Rinsed/ Rinsed/ Irrigated with Irrigated with Irrigated with Saline Saline Saline -Foul Odor after Cleansing No No No -Bioengineered Tissue No No No -Bleeding Controlled with Pressure Pressure Pressure -Treatment Response Procedure Procedure Procedure Tolerated Well Tolerated Well Tolerated Well -Offloading No No No -Debridement - Subq, 1st 20sq cm Yes Yes Yes -Debridement, SubQ, ea addt'l 20sq cm 21 20 21 or part thereof Pain Scale: 0-10 Numeric Is Patient Pain Free? Yes Yes Yes WC - Nurse 3 - General Ulcer D/C NN Start: 02/08/25 11:17 Freq: Status: Active Protocol: Activity Type Activity Date Activity User E-sign Co-sign Detail Recorded Client Recorded Date Recorded By Document 02/08/25 12:41 RB [id number] 02/08/25 12:44 RB 02/08/25 12:41 Wound Care Center Nurse 3 #24 Left Lateral Leg -Ulcer Cleansing Rinsed/ Irrigated with Saline -Primary Dressing Applied Aquacel Extra -Other Dressing ABD -Primary Dressing Covered/Secured with Dry Gauze & Roll Gauze, Secured with Tape -Aquacel Extra 1 #22 R Medial Lateral -Ulcer Cleansing Rinsed/ Irrigated with Saline -Primary Dressing Applied Aquacel Extra, Optilok 6.5x10 -Primary Dressing Covered/Secured with Dry Gauze & Roll Gauze, Secured with Tape -Aquacel Extra 1 -Optilok 6.5x10 1 #18 Left medial LE cluster -Ulcer Cleansing Rinsed/ Irrigated with Saline -Primary Dressing Applied Aquacel Extra, Optilok 6.5x10 -Primary Dressing Covered/Secured with Dry Gauze & Roll Gauze, Secured with Tape -Aquacel Extra 1 -Optilok 6.5x10 1 BLE -Stockings Yes: pt own circaids Treatment Response Procedure Tolerated Well Pain Scale: 0-10 Numeric Is Patient Pain Free? Yes WC - Visit Discharge Discharge Condition Stable Ambulatory Status Ambulatory, Walker Transportation Private Auto Medication Reconcilliation completed & No provided to patient/care provider Clinical Summary of Care Provided Yes Additional Wound Wound debrided: right lateral leg Laterality: Right Type of Debridement: Excisional debridement Anesthesia Used: 5% Lidocaine Gel and Cetacaine Depth: Down to and including healthy tissue and in the subcutaneous layer Percentage of wound debrided: 100 Instrument Used: - (Misonix ultrasonic debridement) Tissue Removed: Yellow slough, devitalized tissue Severity: Fat Layer Exposed Amount of bleeding with debridement: Mild Bleeding Controlled with: Compression and gauze Patient tolerated procedure: Patient tolerated procedure well Additional Wound Wound debrided: right medial leg Laterality: Right Type of Debridement: Excisional debridement Anesthesia Used: 5% Lidocaine Gel and Cetacaine Depth: Down to and including healthy tissue and in the subcutaneous layer Percentage of wound debrided: 100 Instrument Used: - (Misonix ultrasonic debridement) Tissue Removed: Yellow slough, devitalized tissue Severity: Fat Layer Exposed Amount of bleeding with debridement: Mild Bleeding Controlled with: Compression and gauze Patient tolerated procedure: Patient tolerated procedure well Assessment/Plan Assessment/Plan (1) Lymphedema: CODE(S): I89.0 - Lymphedema, not elsewhere classified (2) Hypertension: CODE(S): I10 - Essential (primary) hypertension QUALIFIERS: Hypertension type: primary hypertension Qualified Code(s): I10 - Essential (primary) hypertension (3) Hyperlipidemia: CODE(S): E78.5 - Hyperlipidemia, unspecified QUALIFIERS: Hyperlipidemia type: mixed hyperlipidemia Qualified Code(s): E78.2 - Mixed hyperlipidemia (4) History of DVT (deep vein thrombosis): CODE(S): Z86.718 - Personal history of other venous thrombosis and embolism (5) Venous insufficiency (chronic) (peripheral): CODE(S): I87.2 - Venous insufficiency (chronic) (peripheral) (6) Venous ulcer of left lower extremity with varicose veins: CODE(S): I83.029 - Varicose veins of left lower extremity with ulcer of unspecified site (7) Edema: CODE(S): R60.9 - Edema, unspecified QUALIFIERS: Edema type: unspecified Qualified Code(s): R60.9 - Edema, unspecified (8) 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 At home wound-care instructions: Will use Circaid compression garments with calcium alginate and super absorber to right LE and ABD to left LE changed everyother day. Due to his chronic lymphedema and being unable to don traditional compression stockings and the presence of venous ulcers on his LE b/l, it is medically necessary for him to have Circaid compression garments. He is using Circaid compression to both legs. I suspect he is not very compliant with his l ymphedemapumps and not getting adequate compression with tubigrips. Due to the delayed progress in wound healing of his venous ulcers, we discussed applying for advanced wound healing product for healing his ulcer. Due to the size of his ulcer, Theraskin application approval was requested from his insurance as it is medically necessary for salvaging his limb and healing his ulcer. He underwent 2 applications of Theraskin to this ulcer. Since applicationof Theraskin he had much improvement in epithelialization of his ulcer even though the overall size is not significantly changed there was progress. He is using Circaid compression wraps. Off-loading: The patient was instructed to avoid pressure and friction on the affected areas. Reposition every 2 hours at minimum. Avoid prolonged standing and/or dangling of legs. When seated, feet should be elevated at chest level. Frequent ambulation is encouraged. Encouraged lymphedema pump use. Diet: Patient encouraged to increase protein intake while taking caution to avoid high carbohydrateand/or sugar intake. Labs/cultures/imaging: Wound culture showed Pseudomonas, Escherichia hermannii, Raoultella planticola, Vancomycin Resist. E. faecalis, Alcaligenes faecalis ssp faeca, Staphylococcus cohnii urealyti and anaerobic bacteria on 06/15/24 and he completed on Levofloxacin and Augmentin. Wound culture taken today on right lateral ulcer which showed Raoultella planticola, Staph hemolyticus, staph epidermidis and morganella morganii but no anaeroobic bacteria, Levofloxacin anddoxycyline were prescribed based on culture results. Labs ordered 10/19/2024. Vitamin D was low A1C 5.4% Wound culture from 12/07/24 was positive for Providencia stuartii, Vancomycin resistant E. Faecalis, Corynebacterium striatum and completed Augmentinorally. Follow-up: Return in 1 week for wound care follow up and have dressing changed by home health Tuesday. Return sooner or report to the emergency room should symptoms worsen, or new symptoms arise. Note: [employer] speech recognition hair tinter software was used to create portions of this document. Sound-alike and misspelled words, as well as other hair tinter errors may be contained in the documentation. 02/22/25 1434 Cosigner Signature (if applicable): CC: ~ Signed [facility]05-16-2025 Progress note Author Patricia Garcia [facility] Note Date/Time February 22, 2025 9:07a m [facility] [address] [place] [address] Progress Note - Wound Care 02/15/25 1535 MR#: [id number] Acct: [id number] Name: ESTEBAN URBINA Rep #:[id number] : 1955 69 From: Patricia Garcia DO PCP: Dr. Patricia Garcia, DO Status:REG RCR Location: History of Present Illness Date of Service: 02/15/25 Chief Complaint: venous ulcers of left lower extremity History of Wound: Mauricio is a 69 yo gentleman who is here today for evaluation of ulcers to to his bilateral lower legs. [facility]. The left LE ulcer started after he developed increased swelling and blisters of left leg in October and the right leg started sometime at the end of October. He was seen at PCP's office a culture was taken and it was resistant to several antibiotics. He was treated initially with Levaquin but had myalgias and then was treated with doxycycline which he finished 2 days ago. He denies improvementand is having swelling to his left calf and thigh. He has been having swelling to both lower extremities for many years and it has worsened over the last few months. He has not been compliant with compression. He has had increased pain especially in the left leg. He has clear yellow drainage and redness without odor or warmth. He is anti-coagulated on coumadin. He has been washing with Dial soap and witch ifrah. He had been using Collagen at times and using Calcium Alginate and covering with ABD pads during October. He was treated with 3M compression and Aquacel Ag. He was referred to the wound center for ongoing treatment. His ulcers have moderate to heavy drainage. He was in the hospital from 11/30/22 until 12/09/22 for treatment of cellulitis andedema. He underwent treatment with Vancomycin and IV lasix and compression. Discharged on 12/09/22. He returned to his assisted living apartment on Tuesday12/21/22. Subjective Subjective Mauricio is a 69-year-old male with longstanding history of chronic venous ulcerationto the left lower extremity and now a right lower extremity venous ulcer that isnearly circumferential. There has been improvement in both ulcers over the last week. He is more compliant with elevation. Wound culture from 12/07/24 was positive for Providencia stuartii, Vancomycin resistant E. Faecalis, Corynebacterium striatum and completed Augmentin orally. His edema is better this week and he is tolerating Circaid compression. 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 He continues to use his lymphedema pumps but continues to have painwith use of these pumps. 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 Objective Data Objective Data Vital Signs: Vital Signs Temp Pulse Resp BP O2 Del Method 96.1 F L 63 18 144/75 H Room Air 02/08/25 11:17 02/15/25 11:47 02/15/25 11:47 02/15/25 11:47 02/15/25 11:47 Oxygen Delivery Method Room Air Physical Exam Const alert, oriented x3 and no apparent distress General Appearance: cooperative and comfortable HEENT normocephalic and head/scalp atraumatic Lymph Lymphatic: lymphedema moderate Resp normal respiratory effort Effort and Inspection: able to speak in complete sentences Cardio regular rate and regular rhythm Extremity Extremity Narrative: His ulcers are painful and the right lower leg remains more swollen than his left but there is good granulation tissue throughout and slough that is nearly completely removed post - debridement, edges of ulcers are beveled without rolled borders General Extremity: edema bilateral lower extremity Details: severe Skin General Skin Exam: venous stasis and dermatitis Wounds: wounds noted Wound Narrative: as in clinical panel, + devitalized tissue, there is increased depth, + granulation tissue bilateral ulcer with good granulation and moderate to heavy slough prior to debridement and minimal post debridement Psych mental status grossly normal, thought process normal, cooperative and affect normal Debridement Note Debridement Note Wound debrided: left medial LE ulcer Laterality: Left Type of Debridement: Excisional debridement Anesthesia Used: 5% Lidocaine Gel and Cetacaine Depth: Down to and including healthy tissue and in the subcutaneous layer Percentage of wound debrided: 100 Instrument Used: - (Misonix ultrasonic debridement) Tissue Removed: Yellow slough, devitalized tissue Severity: Fat Layer Exposed Amount of bleeding with debridement: Mild Bleeding Controlled with: Compression and gauze Patient tolerated procedure: Patient tolerated procedure well Post-Debridement Measurements and Additional Note: Post-Debridement Measurements/Treatment - Nurse 1 - General Ulcer Assessment Start: 02/08/25 11:17 Freq: Status: Active Protocol: ONDINA Activity Type Activity Date Activity User E-sign Co-sign Detail Recorded Client Recorded Date Recorded By Document 02/08/25 11:17 KW [id number] 02/08/25 11:38 KW Document 02/15/25 11:47 KW [id number] 02/15/25 12:08 KW 02/08/25 02/15/25 11:17 11:47 WC - Today's Visit Information Type of service Follow-up Visit Follow-up Visit (Physician/APPLICATIONS SPECIALIST (Physician/APPLICATIONS SPECIALIST ) ) Arrival Mode Ambulatory, Ambulatory, Walker Walker Patient Identification Verified (Name & Yes Yes ) Vital Signs Temperature (97.8 F-99.1 F) 96.1 F L Temperature Source Temporal Temporal Pulse Rate (60-100) 65 63 Pulse Location Monitor Monitor Respiratory Rate (12-18) 16 18 Respiratory rate source Observation Observation Oxygen Delivery Method Room Air Room Air Blood Pressure (90/60-120/80) 143/68 H 144/75 H Blood Pressure Mean (mm Hg) 93 98 Source Monitor Monitor Position Semi-Fowlers Semi-Fowlers Blood Pressure Location Right Arm Right Arm History Since Last Visit- (Skip if this is Patient's initial visit) Have you changed medications since your No No last visit? Any new allergies or adverse reactions No No Had a fall/change in ADL's that may No No increase risk of falls Signs or symptoms of abuse and/or No No neglect since last visit Have you been in the hospital since your No No last visit? Has dressing in place as prescribed Yes Yes Has compression in place as prescribed Yes Yes Has offloadiing in place as prescribed N/A N/A Experienced any changes in pain level or No No management Left Footwear Regular Shoe Regular Shoe Right Footwear Regular Shoe Regular Shoe Pain Scale: 0-10 Numeric Is Patient Pain Free? Yes Yes - Nurse 1 - General Ulcer Measurement Start: 02/08/25 11:17 Freq: Status: Active Protocol: Activity Type Activity Date Activity User E-sign Co-sign Detail Recorded Client Recorded Date Recorded By Document 02/08/25 11:17 KW [id number] 02/08/25 11:38 KW Document 02/15/25 11:47 KW [id number] 02/15/25 12:08 KW 02/08/25 02/15/25 11:17 11:47 Wound Center Nurse 1 #24 Left Lateral Leg -Current Size (cm) - Length 2.7 0.1 -Current Size (cm) - Width 3.2 0.1 -Current Size (cm) - Depth 0.1 0.1 -Total Square Cm 8.64 0.01 -Date of Last Picture (Recall this 02/15/25 field) -Exudate Amt Small Large -Exudate Type Serosanguineous Serosanguineous -Wound Margin Distinct, Distinct, Outline Outline Attached Attached -Granulation Amt Medium (34-66%) Medium (34-66%) -Granulation Quality Lingle Red -Necrosis Amt Small (1-33%) Medium (34-66%) -Necrotic Tissue Type Adherent Slough Adherent Slough -Texture (Marie-wound Skin Appearance) Assessed Assessed -Moisture (Marie-wound Skin Appearance) Assessed Assessed -Color (Marie-wound Skin Appearance) Assessed, Assessed, Hemosiderin Hemosiderin Staining Staining -Temperature (Marie-wound Skin No Abnormality No Abnormality Appearance) (Pt Warm) (Pt Warm) -Tenderness on Palpation (Marie-wound No No Skin Appearance) -Ulcer Cleansing Soap and Water Soap and Water -Foul Odor after Cleansing No No -Anesthetic Used 5% Lidocaine 5% Lidocaine Gel Gel #22 R Medial Lateral -Current Size (cm) - Length 28 0.1 -Current Size (cm) - Width 10.5 0.1 -Current Size (cm) - Depth 0.2 0.1 -Total Square Cm 294.0 0.01 -Date of Last Picture (Recall this 02/15/25 field) -Exudate Amt Large Large -Exudate Type Serosanguineous Serosanguineous -Wound Margin Distinct, Distinct, Outline Outline Attached Attached -Granulation Amt Large (67-100%) Medium (34-66%) -Granulation Quality Red Red -Necrosis Amt Medium (34-66%) Medium (34-66%) -Necrotic Tissue Type Adherent Slough Adherent Slough -Texture (Marie-wound Skin Appearance) Assessed Assessed -Moisture (Marie-wound Skin Appearance) Assessed Assessed -Color (Marei-wound Skin Appearance) Assessed, Assessed, Hemosiderin Hemosiderin Staining Staining -Temperature (Marie-wound Skin No Abnormality No Abnormality Appearance) (Pt Warm) (Pt Warm) -Tenderness on Palpation (Marie-wound No No Skin Appearance) -Ulcer Cleansing Soap and Water Soap and Water -Foul Odor after Cleansing No No -Anesthetic Used 5% Lidocaine 5% Lidocaine Gel Gel #18 Left medial LE cluster -Current Size (cm) - Length 15 0.1 -Current Size (cm) - Width 8.5 0.1 -Current Size (cm) - Depth 0.2 0.1 -Total Square Cm 127.5 0.01 -Date of Last Picture (Recall this 02/15/25 field) -Exudate Amt Large Large -Exudate Type Serosanguineous Serosanguineous -Wound Margin Distinct, Distinct, Outline Outline Attached Attached -Granulation Amt Large (67-100%) Medium (34-66%) -Granulation Quality Red Red -Necrosis Amt Medium (34-66%) Medium (34-66%) -Necrotic Tissue Type Adherent Slough Adherent Slough -Texture (Marie-wound Skin Appearance) Assessed Assessed -Moisture (Marie-wound Skin Appearance) Assessed Assessed -Color (Marie-wound Skin Appearance) Assessed, Assessed, Hemosiderin Erythema, Staining Hemosiderin Staining -Temperature (Marie-wound Skin No Abnormality No Abnormality Appearance) (Pt Warm) (Pt Warm) -Tenderness on Palpation (Marie-wound No No Skin Appearance) -Ulcer Cleansing Soap and Water Soap and Water -Foul Odor after Cleansing No No -Anesthetic Used 5% Lidocaine 5% Lidocaine Gel Gel Right Calf (cm) 47.2 44.5 Right Ankle (cm) 30.5 30 Left Calf (cm) 44 42 Left Ankle (cm) 29 30 - Nurse 2 - General Ulcer CM Notes Start: 02/08/25 11:17 Freq: Status: Active Protocol: Activity Type Activity Date Activity User E-sign Co-sign Detail Recorded Client Recorded Date Recorded By Document 02/08/25 12:03 [id number] 02/08/25 12:16 Document 02/15/25 12:48 [id number] 02/15/25 13:01 02/08/25 02/15/25 12:03 12:48 Wound Center Nurse 2 #24 Left Lateral Leg -Time 12:03 12:48 -Correct Patient Yes Yes -Correct Side, Site, Position Yes Yes -Correct Procedure Yes Yes -Procedure Performed Yes Yes -Type of Procedure Debridement Debridement -Clinical Debridement Subcutaneous Subcutaneous -Tissue Removed Subcutaneous Subcutaneous -Post Debridement (cm) - Length 2.4 2.1 -Post Debridement (cm) - Width 1.6 1.3 -Post Debridement (cm) - Depth 0.1 0.1 -Total Square (Post) (cm) 3.84 2.73 -Area of Debridement (cm) - Length 2.4 2.1 -Area of Debridement (cm) - Width 1.6 1.3 -Total Square (Area) (cm) 3.84 2.73 -Tunneling No No -Undermining/Tunneling No No -Circular Undermining No No -Wound/Ulcer Outcome Not Healed Not Healed -Ulcer Cleansing Rinsed/ Rinsed/ Irrigated with Irrigated with Saline Saline -Foul Odor after Cleansing No No -Bioengineered Tissue No No -Bleeding Controlled with Pressure Pressure -Treatment Response Procedure Procedure Tolerated Well Tolerated Well -Offloading No No -Assistive Device(s) Walker -Debridement - Subq, 20sq cm No No #22 R Medial Lateral -Time 12: 12:48 -Correct Patient Yes Yes -Correct Side, Site, Position Yes Yes -Correct Procedure Yes Yes -Procedure Performed Yes Yes -Type of Procedure Debridement Debridement -Clinical Debridement Subcutaneous Subcutaneous -Tissue Removed Subcutaneous Subcutaneous -Post Debridement (cm) - Length 11.8 11.5 -Post Debridement (cm) - Width 27.0 26.0 -Post Debridement (cm) - Depth 0.1 0.1 -Total Square (Post) (cm) 318.60 299.00 -Area of Debridement (cm) - Length 11.8 -Area of Debridement (cm) - Width 27.0 -Total Square (Area) (cm) 318.60 -Tunneling No No -Undermining/Tunneling No No -Circular Undermining No No -Wound/Ulcer Outcome Not Healed Not Healed -Ulcer Cleansing Rinsed/ Rinsed/ Irrigated with Irrigated with Saline Saline -Foul Odor after Cleansing No No -Bioengineered Tissue No No -Bleeding Controlled with Pressure Pressure -Treatment Response Procedure Procedure Tolerated Well Tolerated Well -Offloading No No -Assistive Device(s) Walker -Debridement - Subq, 1st 20sq cm No No #18 Left medial LE cluster -Time 12: 12:49 -Correct Patient Yes Yes -Correct Side, Site, Position Yes Yes -Correct Procedure Yes Yes -Procedure Performed Yes Yes -Type of Procedure Debridement Debridement -Clinical Debridement Subcutaneous Subcutaneous -Tissue Removed Subcutaneous Subcutaneous -Post Debridement (cm) - Length 8.5 8.5 -Post Debridement (cm) - Width 12.8 12.9 -Post Debridement (cm) - Depth 0.1 0.1 -Total Square (Post) (cm) 108.80 109.65 -Area of Debridement (cm) - Length 8.5 8.5 -Area of Debridement (cm) - Width 12.8 12.9 -Total Square (Area) (cm) 108.80 109.65 -Tunneling No No -Undermining/Tunneling No No -Circular Undermining No No -Wound/Ulcer Outcome Not Healed Not Healed -Ulcer Cleansing Rinsed/ Rinsed/ Irrigated with Irrigated with Saline Saline -Foul Odor after Cleansing No No -Bioengineered Tissue No No -Bleeding Controlled with Pressure Pressure -Treatment Response Procedure Procedure Tolerated Well Tolerated Well -Offloading No No -Debridement - Subq, 1st 20sq cm Yes Yes -Debridement, SubQ, ea addt'l 20sq cm 21 20 or part thereof Pain Scale: 0-10 Numeric Is Patient Pain Free? Yes Yes WC - Nurse 3 - General Ulcer D/C NN Start: 02/08/25 11:17 Freq: Status: Active Protocol: Activity Type Activity Date Activity User E-sign Co-sign Detail Recorded Client Recorded Date Recorded By Document 02/08/25 12:41 RB [id number] 02/08/25 12:44 RB 02/08/25 12:41 Wound Care Center Nurse 3 #24 Left Lateral Leg -Ulcer Cleansing Rinsed/ Irrigated with Saline -Primary Dressing Applied Aquacel Extra -Other Dressing ABD -Primary Dressing Covered/Secured with Dry Gauze & Roll Gauze, Secured with Tape -Aquacel Extra 1 #22 R Medial Lateral -Ulcer Cleansing Rinsed/ Irrigated with Saline -Primary Dressing Applied Aquacel Extra, Optilok 6.5x10 -Primary Dressing Covered/Secured with Dry Gauze & Roll Gauze, Secured with Tape -Aquacel Extra 1 -Optilok 6.5x10 1 #18 Left medial LE cluster -Ulcer Cleansing Rinsed/ Irrigated with Saline -Primary Dressing Applied Aquacel Extra, Optilok 6.5x10 -Primary Dressing Covered/Secured with Dry Gauze & Roll Gauze, Secured with Tape -Aquacel Extra 1 -Optilok 6.5x10 1 BLE -Stockings Yes: pt own circaids Treatment Response Procedure Tolerated Well Pain Scale: 0-10 Numeric Is Patient Pain Free? Yes WC - Visit Discharge Discharge Condition Stable Ambulatory Status Ambulatory, Walker Transportation Private Auto Medication Reconcilliation completed & No provided to patient/care provider Clinical Summary of Care Provided Yes Additional Wound Wound debrided: right lateral leg Laterality: Right Type of Debridement: Excisional debridement Anesthesia Used: 5% Lidocaine Gel and Cetacaine Depth: Down to and including healthy tissue and in the subcutaneous layer Percentage of wound debrided: 100 Instrument Used: - (Misonix ultrasonic debridement) Tissue Removed: Yellow slough, devitalized tissue Severity: Fat Layer Exposed Amount of bleeding with debridement: Mild Bleeding Controlled with: Compression and gauze Patient tolerated procedure: Patient tolerated procedure well Additional Wound Wound debrided: right medial leg Laterality: Right Type of Debridement: Excisional debridement Anesthesia Used: 5% Lidocaine Gel and Cetacaine Depth: Down to and including healthy tissue and in the subcutaneous layer Percentage of wound debrided: 100 Instrument Used: - (Misonix ultrasonic debridement) Tissue Removed: Yellow slough, devitalized tissue Severity: Fat Layer Exposed Amount of bleeding with debridement: Mild Bleeding Controlled with: Compression and gauze Patient tolerated procedure: Patient tolerated procedure well Assessment/Plan Assessment/Plan (1) Lymphedema: CODE(S): I89.0 - Lymphedema, not elsewhere classified (2) Hypertension: CODE(S): I10 - Essential (primary) hypertension QUALIFIERS: Hypertension type: primary hypertension Qualified Code(s): I10 - Essential (primary) hypertension (3) Hyperlipidemia: CODE(S): E78.5 - Hyperlipidemia, unspecified QUALIFIERS: Hyperlipidemia type: mixed hyperlipidemia Qualified Code(s): E78.2 - Mixed hyperlipidemia (4) History of DVT (deep vein thrombosis): CODE(S): Z86.718 - Personal history of other venous thrombosis and embolism (5) Venous insufficiency (chronic) (peripheral): CODE(S): I87.2 - Venous insufficiency (chronic) (peripheral) (6) Venous ulcer of left lower extremity with varicose veins: CODE(S): I83.029 - Varicose veins of left lower extremity with ulcer of unspecified site (7) Edema: CODE(S): R60.9 - Edema, unspecified QUALIFIERS: Edema type: unspecified Qualified Code(s): R60.9 - Edema, unspecified (8) 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 At home wound-care instructions: Will use Circaid compression garments with calcium alginate and super absorber to right LE and ABD to left LE changed everyother day. Due to his chronic lymphedema and being unable to don traditional compression stockings and the presence of venous ulcers on his LE b/l, it is medically necessary for him to have Circaid compression garments. He is using Circaid compression to both legs. I suspect he is not very compliant with his lymphedemapumps and not getting adequate compression with tubigrips. Due to the delayed progress in wound healing of his venous ulcers, we discussed applying for advanced wound healing product for healing his ulcer. Due to the size of his ulcer, Theraskin application approval was requested from his insurance as it is medically necessary for salvaging his limb and healing his ulcer. He underwent 2 applications of Theraskin to this ulcer. Since applicationof Theraskin he had much improvement in epithelialization of his ulcer even though the overall size is not significantly changed there was progress. He is using Circaid compression wraps. Off-loading: The patient was instructed to avoid pressure and friction on the affected areas. Reposition every 2 hours at minimum. Avoid prolonged standing and/or dangling of legs. When seated, feet should be elevated at chest level. Frequent ambulation is encouraged. Encouraged lymphedema pump use. Diet: Patient encouraged to increase protein intake while taking caution to avoid high carbohydrate and/or sugar intake. Labs/cultures/imaging: Wound culture showed Pseudomonas, Escherichia hermannii, Raoultella planticola, Vancomycin Resist. E. faecalis, Alcaligenes faecalis ssp faeca, Staphylococcus cohnii urealyti and anaerobic bacteria on 06/15/24 and he completed on Levofloxacin and Augmentin. Wound culture taken today on right lateral ulcer which showed Raoultella planticola, Staph hemolyticus, staph epidermidis and morganella morganii but no anaeroobic bacteria, Levofloxacin anddoxycyline were prescribed based on culture results. Labs ordered 10/19/2024. Vitamin D was low A1C 5.4% Wound culture from 12/07/24 was positive for Providencia stuartii, Vancomycin resistant E. Faecalis, Corynebacterium striatum and completed Augmentin orally. Follow-up: Return in 1 week for wound care follow up and have dressing changed by home health Tuesday. Return sooner or report to the emergency room should symptoms worsen, or new symptoms arise. Note: [employer] speech recognition hair tinter software was used to create portions of this document. Sound-alike and misspelled words, as well as other hair tinter errors may be contained in the documentation. 02/22/25 09 <Electronically signed by Patricia Garcia DO> Cosigner Signature (if applicable): CC: ~ Signed [facility] Work Phone: [phone] Progress note [facility] [address] [place] [id number] Progress Note - Wound Care 02/15/25 1535 MR#: [id number] Acct: [id number] Name: ESTEBAN URBINA Rep #:[id number] : 1955 69 From: Patricia Garcia DO PCP: Dr. Patricia Garcia DO Status:REG RCR Location: History of Present Illness Date of Service: 02/15/25 Chief Complaint: venous ulcers of left lower extremity History of Wound: Mauricio is a 69 yo gentleman who is here today for evaluation of ulcers to to his bilateral lower legs. He has been treated multiple times in the[place] at the wound healing center for similar ulcers. The left LE ulcer started after he developed increased swelling and blisters of left leg in Octoberand the right leg started sometime at the end of October. He was seen at PCP's office a culture was taken and it was resistant to several antibiotics. He wastreated initially with Levaquin but had myalgias and then was treated with doxycycline which he finished 2 days ago. He denies improvementand is having swelling to his left calf and thigh. He has been having swelling to both lower extremities for many years and it has worsened over the last few chirag hs. He has not been compliant with compression. He has had increased pain especially in the left leg. He has clear yellow drainage and redness without odor or warmth. He is anti- coagulated on coumadin. He has been washing with Dial soap and witch ifrah. He had been using Collagen at times and using Calcium Alginate and covering with ABD pads during October. He was treated with 3M compression and Aquacel Ag. He was referred to the wound center for ongoing treatment. His ulcers have moderate to heavy drainage. He was in the hospital from 11/30/22 until 12/09/22 for treatment of cellulitis andedema. He underwenttreatment with Vancomycin and IV lasix and compression. Discharged on 12/09/22. He returned to his assisted living apartment on Tuesday12/21/22. Subjective Subjective Mauricio is a 69-year-old male with longstanding history of chronic venous ulcerationto the left lower extremity and now a right lower extremity venous ulcer that isnearly circumferential. There has been improvement in both ulcers over the last week. He is more compliant with elevation. Wound culture from 12/07/24 was positive for Providencia stuartii, Vancomycin resistant E. Faecalis,Corynebacterium striatum and completed Augmentin orally. His edema is better this week and he is tolerating Circaid compression. 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 He continues to use his lymphedema pumps but continues to have painwith use of these pumps. 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 Objective Data Objective Data Vital Signs: Vital Signs Temp Pulse Resp BP O2 Del Method 96.1 F L 63 18 144/75 H Room Air 02/08/25 11:17 02/15/25 11:47 02/15/25 11:47 02/15/25 11:47 02/15/25 11:47 Oxygen Delivery Method Room Air Physical Exam Const alert, oriented x3 and no apparent distress General Appearance: cooperative and comfortable HEENT normocephalic and head/scalp atraumatic Lymph Lymphatic: lymphedema moderate Resp normal respiratory effort Effort and Inspection: able to speak in complete sentences Cardio regular rate and regular rhythm Extremity Extremity Narrative: His ulcers are painful and the right lower leg remains more swollen than his left but there is goodgranulation tissue throughout and slough that is nearly completely removed post - debridement, edges of ulcers are beveled without rolled borders General Extremity: edema bilateral lower extremity Details: severe Skin General Skin Exam: venous stasis and dermatitis Wounds: wounds noted Wound Narrative: as in clinical panel, + devitalized tissue, there is increased depth, + granulation tissue bilateral ulcer with good granulation and moderate to heavy slough prior to debridement and minimalpost debridement Psych mental status grossly normal, thought process normal, cooperative and affect normal Debridement Note Debridement Note Wound debrided: left medial LE ulcer Laterality: Left Type of Debridement: Excisional debridement Anesthesia Used: 5% Lidocaine Gel and Cetacaine Depth: Down to and including healthy tissue and in the subcutaneous layer Percentage of wound debrided: 100 Instrument Used: - (Misonix ultrasonic debridement) Tissue Removed: Yellow slough, devitalized tissue Severity: Fat Layer Exposed Amount of bleeding with debridement: Mild Bleeding Controlled with: Compression and gauze Patient tolerated procedure: Patient tolerated procedure well Post-Debridement Measurements and Additional Note: Post-Debridement Measurements/Treatment - Nurse 1 - General Ulcer Assessment Start: 02/08/25 11:17 Freq: Status: Active Protocol: [email or web address] Activity Type Activity Date Activity User E-sign Co-sign Detail Recorded Client Recorded Date Recorded By Document 02/08/25 11:17 KW [id number] 02/08/25 11:38 KW Document 02/15/25 11:47 KW [id number] 02/15/25 12:08 KW 02/08/25 02/15/25 11:17 11:47 - Today's Visit Information Type of service Follow-up Visit Follow-up Visit (Physician/APPLICATIONS SPECIALIST (Physician/APPLICATIONS SPECIALIST ) ) Arrival Mode Ambulatory, Ambulatory, Walker Walker Patient Identification Verified (Name & Yes Yes ) Vital Signs Temperature (97.8 F-99.1 F) 96.1 F L Temperature Source Temporal Temporal Pulse Rate (60-100) 65 63 Pulse Location Monitor Monitor Respiratory Rate (12-18) 16 18 Respiratory rate source Observation Observation Oxygen Delivery Method Room Air Room Air Blood Pressure (90/60-120/80) 143/68 H 144/75 H Blood Pressure Mean (mm Hg) 93 98 Source Monitor Monitor Position Semi-Fowlers Semi-Fowlers Blood Pressure Location Right Arm Right Arm History Since Last Visit- (Skip if this is Patient's initial visit) Have you changed medications since your No No last visit? Any new allergies or adverse reactions No No Had a fall/change in ADL's that may No No increase risk of falls Signs or symptoms of abuse and/or No No neglect since last visit Have you been in the hospital since your No No last visit? Has dressing in place as prescribed Yes Yes Has compression in place as prescribed Yes Yes Has offloadiing in place as prescribed N/A N/A Experienced any changes in pain level or No No management Left Footwear Regular Shoe Regular Shoe Right Footwear Regular Shoe Regular Shoe Pain Scale: 0-10 Numeric Is Patient Pain Free? Yes Yes WC - Nurse 1 - General Ulcer Measurement Start: 02/08/25 11:17 Freq: Status: Active Protocol: Activity Type Activity Date Activity User E-sign Co-sign Detail Recorded Client Recorded Date Recorded By Document 02/08/25 11:17 KW [id number] 02/08/25 11:38 KW Document 02/15/25 11:47 KW [id number] 02/15/25 12:08 KW 02/08/25 02/15/25 11:17 11:47 Wound Center Nurse 1 #24 Left Lateral Leg -Current Size (cm) - Length 2.7 0.1 -Current Size (cm) - Width 3.2 0.1 -Current Size (cm) - Depth 0.1 0.1 -Total Square Cm 8.64 0.01 -Date of Last Picture (Recall this 02/15/25 field) -Exudate Amt Small Large -Exudate Type Serosanguineous Serosanguineous -Wound Margin Distinct, Distinct, Outline Outline Attached Attached -Granulation Amt Medium (34-66%) Medium (34-66%) -Granulation Quality Lingle Red -Necrosis Amt Small (1-33%) Medium (34-66%) -Necrotic Tissue Type Adherent Slough Adherent Slough -Texture (Marie-wound Skin Appearance) Assessed Assessed -Moisture (Marie-wound Skin Appearance) Assessed Assessed -Color (Marie-wound Skin Appearance) Assessed, Assessed, Hemosiderin Hemosiderin Staining Staining -Temperature (Marie-wound Skin No Abnormality No Abnormality Appearance) (Pt Warm) (Pt Warm) -Tenderness on Palpation (Marie-wound No No Skin Appearance) -Ulcer Cleansing Soap and Water Soap and Water -Foul Odor after Cleansing No No -Anesthetic Used 5% Lidocaine 5% Lidocaine Gel Gel #22 R Medial Lateral -Current Size (cm) - Length 28 0.1 -Current Size (cm) - Width 10.5 0.1 -Current Size (cm) - Depth 0.2 0.1 -Total Square Cm 294.0 0.01 -Date of Last Picture (Recall this 02/15/25 field) -Exudate Amt Large Large -Exudate Type Serosanguineous Serosanguineous -Wound Margin Distinct, Distinct, Outline Outline Attached Attached -Granulation Amt Large (67-100%) Medium (34-66%) -Granulation Quality Red Red -Necrosis Amt Medium (34-66%) Medium (34-66%) -Necrotic Tissue Type Adherent Slough Adherent Slough -Texture (Marie-wound Skin Appearance) Assessed Assessed -Moisture (Marie-wound Skin Appearance) Assessed Assessed -Color (Marie-wound Skin Appearance) Assessed, Assessed, Hemosiderin Hemosiderin Staining Staining -Temperature (Marie-wound Skin No Abnormality No Abnormality Appearance) (Pt Warm) (Pt Warm) -Tenderness on Palpation (Marie-wound No No Skin Appearance) -Ulcer Cleansing Soap and Water Soap and Water -Foul Odor after Cleansing No No -Anesthetic Used 5% Lidocaine 5% Lidocaine Gel Gel #18 Left medial LE cluster -Current Size (cm) - Length 15 0.1 -Current Size (cm) - Width 8.5 0.1 -Current Size (cm) - Depth 0.2 0.1 -Total Square Cm 127.5 0.01 -Date of Last Picture (Recall this 02/15/25 field) -Exudate Amt Large Large -Exudate Type Serosanguineous Serosanguineous -Wound Margin Distinct, Distinct, Outline Outline Attached Attached -Granulation Amt Large (67-100%) Medium (34-66%) -Granulation Quality Red Red -Necrosis Amt Medium (34-66%) Medium (34-66%) -Necrotic Tissue Type Adherent Slough Adherent Slough -Texture (Marie-wound Skin Appearance) Assessed Assessed -Moisture (Marie-wound Skin Appearance) Assessed Assessed -Color (Marie-wound Skin Appearance) Assessed, Assessed, Hemosiderin Erythema, Staining Hemosiderin Staining -Temperature (Marie-wound Skin No Abnormality No Abnormality Appearance) (Pt Warm) (Pt Warm) -Tenderness on Palpation (Marie-wound No No Skin Appearance) -Ulcer Cleansing Soap and Water Soap and Water -Foul Odor after Cleansing No No -Anesthetic Used 5% Lidocaine 5% Lidocaine Gel Gel Right Calf (cm) 47.2 44.5 Right Ankle (cm) 30.5 30 Left Calf (cm) 44 42 Left Ankle (cm) 29 30 WC - Nurse 2 - General Ulcer CM Notes Start: 02/08/25 11:17 Freq: Status: Active Protocol: Activity Type Activity Date Activity User E-sign Co-sign Detail Recorded Client Recorded Date Recorded By Document 02/08/25 12:03 [id number] 02/08/25 12:16 Document 02/15/25 12:48 [id number] 02/15/25 13:01 02/08/25 02/15/25 12:03 12:48 Wound Center Nurse 2 #24 Left Lateral Leg -Time 12:03 12:48 -Correct Patient Yes Yes -Correct Side, Site, Position Yes Yes -Correct Procedure Yes Yes -Procedure Performed Yes Yes -Type of Procedure Debridement Debridement -Clinical Debridement Subcutaneous Subcutaneous -Tissue Removed Subcutaneous Subcutaneous -Post Debridement (cm) - Length 2.4 2.1 -Post Debridement (cm) - Width 1.6 1.3 -Post Debridement (cm) - Depth 0.1 0.1 -Total Square (Post) (cm) 3.84 2.73 -Area of Debridement (cm) - Length 2.4 2.1 -Area of Debridement (cm) - Width 1.6 1.3 -Total Square (Area) (cm) 3.84 2.73 -Tunneling No No -Undermining/Tunneling No No -Circular Undermining No No -Wound/Ulcer Outcome Not Healed Not Healed -Ulcer Cleansing Rinsed/ Rinsed/ Irrigated with Irrigated with Saline Saline -Foul Odor after Cleansing No No -Bioengineered Tissue No No -Bleeding Controlled with Pressure Pressure -Treatment Response Procedure Procedure Tolerated Well Tolerated Well -Offloading No No -Assistive Device(s) Walker -Debridement - Subq, 1st 20sq cm No No #22 R Medial Lateral -Time 12:04 12:48 -Correct Patient Yes Yes -Correct Side, Site, Position Yes Yes -Correct Procedure Yes Yes -Procedure Performed Yes Yes -Type of Procedure Debridement Debridement -Clinical Debridement Subcutaneous Subcutaneous -Tissue Removed Subcutaneous Subcutaneous -Post Debridement (cm) - Length 11.8 11.5 -Post Debridement (cm) - Width 27.0 26.0 -Post Debridement (cm) - Depth 0.1 0.1 -Total Square (Post) (cm) 318.60 299.00 -Area of Debridement (cm) - Length 11.8 -Area of Debridement (cm) - Width 27.0 -Total Square (Area) (cm) 318.60 -Tunneling No No -Undermining/Tunneling No No -Circular Undermining No No -Wound/Ulcer Outcome Not Healed Not Healed -Ulcer Cleansing Rinsed/ Rinsed/ Irrigated with Irrigated with Saline Saline -Foul Odor after Cleansing No No -Bioengineered Tissue No No -Bleeding Controlled with Pressure Pressure -Treatment Response Procedure Procedure Tolerated Well Tolerated Well -Offloading No No -Assistive Device(s) Walker -Debridement - Subq, 1st 20sq cm No No #18 Left medial LE cluster -Time 12:04 12:49 -Correct Patient Yes Yes -Correct Side, Site, Position Yes Yes -Correct Procedure Yes Yes -Procedure Performed Yes Yes -Type of Procedure Debridement Debridement -Clinical Debridement Subcutaneous Subcutaneous -Tissue Removed Subcutaneous Subcutaneous -Post Debridement (cm) - Length 8.5 8.5 -Post Debridement (cm) - Width 12.8 12.9 -Post Debridement (cm) - Depth 0.1 0.1 -Total Square (Post) (cm) 108.80 109.65 -Area of Debridement (cm) - Length 8.5 8.5 -Area of Debridement (cm) - Width 12.8 12.9 -Total Square (Area) (cm) 108.80 109.65 -Tunneling No No -Undermining/Tunneling No No -Circular Undermining No No -Wound/Ulcer Outcome Not Healed Not Healed -Ulcer Cleansing Rinsed/ Rinsed/ Irrigated with Irrigated with Saline Saline -Foul Odor after Cleansing No No -Bioengineered Tissue No No -Bleeding Controlled with Pressure Pressure -Treatment Response Procedure Procedure Tolerated Well Tolerated Well -Offloading No No -Debridement - Subq, 1st 20sq cm Yes Yes -Debridement, SubQ, ea addt'l 20sq cm 21 20 or part thereof Pain Scale: 0-10 Numeric Is Patient Pain Free? Yes Yes - Nurse 3 - General Ulcer D/C NN Start: 02/08/25 11:17 Freq: Status: Active Protocol: Activity Type Activity Date Activity User E-sign Co-sign Detail Recorded Client Recorded Date Recorded By Document 02/08/25 12:41 RB [id number] 02/08/25 12:44 RB 02/08/25 12:41 Wound Care Center Nurse 3 #24 Left Lateral Leg -Ulcer Cleansing Rinsed/ Irrigated with Saline -Primary Dressing Applied Aquacel Extra -Other Dressing ABD -Primary Dressing Covered/Secured with Dry Gauze & Roll Gauze, Secured with Tape -Aquacel Extra 1 #22 R Medial Lateral -Ulcer Cleansing Rinsed/ Irrigated with Saline -Primary Dressing Applied Aquacel Extra, Optilok 6.5x10 -Primary Dressing Covered/Secured with Dry Gauze & Roll Gauze, Secured with Tape -Aquacel Extra 1 -Optilok 6.5x10 1 #18 Left medial LE cluster -Ulcer Cleansing Rinsed/ Irrigated with Saline -Primary Dressing Applied Aquacel Extra, Optilok 6.5x10 -Primary Dressing Covered/Secured with Dry Gauze & Roll Gauze, Secured with Tape -Aquacel Extra 1 -Optilok 6.5x10 1 BLE -Stockings Yes: pt own circaids Treatment Response Procedure Tolerated Well Pain Scale: 0-10 Numeric Is Patient Pain Free? Yes - Visit Discharge Discharge Condition Stable Ambulatory Status Ambulatory, Walker Transportation Private Auto Medication Reconcilliation completed & No provided to patient/care provider Clinical Summary of Care Provided Yes Additional Wound Wound debrided: right lateral leg Laterality: Right Type of Debridement: Excisional debridement Anesthesia Used: 5% Lidocaine Gel and Cetacaine Depth: Down to and including healthy tissue and in the subcutaneous layer Percentage of wound debrided: 100 Instrument Used: - (Misonix ultrasonic debridement) Tissue Removed: Yellow slough, devitalized tissue Severity: Fat Layer Exposed Amount of bleeding with debridement: Mild Bleeding Controlled with: Compression and gauze Patient tolerated procedure: Patient tolerated procedure well Additional Wound Wound debrided: right medial leg Laterality: Right Type of Debridement: Excisional debridement Anesthesia Used: 5% Lidocaine Gel and Cetacaine Depth: Down to and including healthy tissue and in the subcutaneous layer Percentage of wound debrided: 100 Instrument Used: - (Misonix ultrasonic debridement) Tissue Removed: Yellow slough, devitalized tissue Severity: Fat Layer Exposed Amount of bleeding with debridement: Mild Bleeding Controlled with: Compression and gauze Patient tolerated procedure: Patient tolerated procedure well Assessment/Plan Assessment/Plan (1) Lymphedema: CODE(S): I89.0 - Lymphedema, not elsewhere classified (2) Hypertension: CODE(S): I10 - Essential (primary) hypertension QUALIFIERS: Hypertension type: primary hypertension Qualified Code(s): I10 - Essential (primary) hypertension (3) Hyperlipidemia: CODE(S): E78.5 - Hyperlipidemia, unspecified QUALIFIERS: Hyperlipidemia type: mixed hyperlipidemia Qualified Code(s): E78.2 - Mixed hyperlipidemia (4) History of DVT (deep vein thrombosis): CODE(S): Z86.718 - Personal history of other venous thrombosis and embolism (5) Venous insufficiency (chronic) (peripheral): CODE(S): I87.2 - Venous insufficiency (chronic) (peripheral) (6) Venous ulcer of left lower extremity with varicose veins: CODE(S): I83.029 - Varicose veins of left lower extremity with ulcer of unspecified site (7) Edema: CODE(S): R60.9 - Edema, unspecified QUALIFIERS: Edema type: unspecified Qualified Code(s): R60.9 - Edema, unspecified (8) 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 At home wound-care instructions: Will use Circaid compression garments with calcium alginate and super absorber to right LE and ABD to left LE changed everyother day. Due to his chronic lymphedema and being unable to don traditional compression stockings and the presence of venous ulcers on his LE b/l, it is medically necessary for him to have Circaid compression garments. He is using Circaid compression to both legs. I suspect he is not very compliant with his l ymphedemapumps and not getting adequate compression with tubigrips. Due to the delayed progress in wound healing of his venous ulcers, we discussed applying for advanced wound healing product for healing his ulcer. Due to the size of his ulcer, Theraskin application approval was requested from his insurance as it is medically necessary for salvaging his limb and healing his ulcer. He underwent 2 applications of Theraskin to this ulcer. Since applicationof Theraskin he had much improvement in epithelialization of his ulcer even though the overall size is not significantly changed there was progress. He is using Circaid compression wraps. Off-loading: The patient was instructed to avoid pressure and friction on the affected areas. Reposition every 2 hours at minimum. Avoid prolonged standing and/or dangling of legs. When seated, feet should be elevated at chest level. Frequent ambulation is encouraged. Encouraged lymphedema pump use. Diet: Patient encouraged to increase protein intake while taking caution to avoid high carbohydrateand/or sugar intake. Labs/cultures/imaging: Wound culture showed Pseudomonas, Escherichia hermannii, Raoultella planticola, Vancomycin Resist. E. faecalis, Alcaligenes faecalis ssp faeca, Staphylococcus cohnii urealyti and anaerobic bacteria on 06/15/24 and he completed on Levofloxacin and Augmentin. Wound culture taken today on right lateral ulcer which showed Raoultella planticola, Staph hemolyticus, staph epidermidis and morganella morganii but no anaeroobic bacteria, Levofloxacin anddoxycyline were prescribed based on culture results. Labs ordered 10/19/2024. Vitamin D was low A1C 5.4% Wound culture from 12/07/24 was positive for Providencia stuartii, Vancomycin resistant E. Faecalis, Corynebacterium striatum and completed Augmentinorally. Follow-up: Return in 1 week for wound care follow up and have dressing changed by home health Tuesday. Return sooner or report to the emergency room should symptoms worsen, or new symptoms arise. Note: [employer] speech recognition hair tinter software was used to create portions of this document. Sound-alike and misspelled words, as well as other hair tinter errors may be contained in the documentation. 02/22/25 0907 Cosigner Signature (if applicable): CC: ~ Signed [facility]05-02-2025 Progress note Author Patricia Garcia [facility] Note Date/Time February 08, 2025 2:20pm [facility] [address] [place] [address] Progress Note - Wound Care 02/08/25 1415 MR#: [id number] Acct: [id number] Name: ESTEBAN URBINA Rep #:[id number] : 1955 69 From: Patricia Garcia DO PCP: Dr. Patricia Garcia, Status:REG RCR Location: History of Present Illness Date of Service: 02/08/25 Chief Complaint: venous ulcers of left lower extremity History of Wound: Mauricio is a 69 yo gentleman who is here today for evaluation of ulcers to to his bilateral lower legs. He has been treated multiple times in thepa at the wound healing center for similar ulcers. The left LE ulcer started after he developed increased swelling and blisters of left leg in October and the right leg started sometime at the end of October. He was seen at PCP's office a culture was taken and it was resistant to several antibiotics. He was treated initially with Levaquin but had myalgias and then was treated with doxycycline which he finished 2 days ago. He denies improvementand is having swelling to his left calf and thigh. He has been having swelling to both lower extremities for many years and it has worsened over the last few months. He has not been compliant with compression. He has had increased pain especially in the left leg. He has clear yellow drainage and redness without odor or warmth. He is anti-coagulated on coumadin. He has been washing with Dial soap and witch ifrah. He had been using Collagen at times and using Calcium Alginate and covering with ABD pads during October. He was treated with 3M compression and Aquacel Ag. He was referred to the wound center for ongoing treatment. His ulcers have moderate to heavy drainage. He was in the hospital from 11/30/22 until 12/09/22 for treatment of cellulitis andedema. He underwent treatment with Vancomycin and IV lasix and compression. Discharged on 12/09/22. He returned to his assisted living apartment on Tuesday12/21/22. Subjective Subjective Mauricio is a 69-year-old male with longstanding history of chronic venous ulcerationto the left lower extremity and now a right lower extremity venous ulcer that isnearly circumferential. There has been improvement in both ulcers over the last week. He is more compliant with elevation. Wound culture from 12/07/24 was positive for Providencia stuartii, Vancomycin resistant E. Faecalis, Corynebacterium striatum and completed Augmentin orally. His edema is better this week and he is tolerating Circaid compression. 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 He continues to use his lymphedema pumps but continues to have painwith use of these pumps. 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 Objective Data Objective Data Vital Signs: Vital Signs Temp Pulse Resp BP O2 Del Method 96.1 F L 65 16 143/68 H Room Air 02/08/25 11:17 02/08/25 11:17 02/08/25 11:17 02/08/25 11:17 02/08/25 11:17 Oxygen Delivery Method Room Air Physical Exam Const alert, oriented x3 and no apparent distress General Appearance: cooperative and comfortable HEENT normocephalic and head/scalp atraumatic Lymph Lymphatic: lymphedema moderate Resp normal respiratory effort Effort and Inspection: able to speak in complete sentences Cardio regular rate and regular rhythm Extremity Extremity Narrative: His ulcers are painful and the right lower leg remains more swollen than his left but there is good granulation tissue throughout and slough that is nearly completely removed post - debridement, edges of ulcers are beveled without rolled borders General Extremity: edema bilateral lower extremity Details: severe Skin General Skin Exam: venous stasis and dermatitis Wounds: wounds noted Wound Narrative: as in clinical panel, + devitalized tissue, there is increased depth, + granulation tissue bilateral ulcer with good granulation and moderate to heavy slough prior to debridement and minimal post debridement Psych mental status grossly normal, thought process normal, cooperative and affect normal Debridement Note Debridement Note Wound debrided: left medial LE ulcer Laterality: Left Type of Debridement: Excisional debridement Anesthesia Used: 5% Lidocaine Gel and Cetacaine Depth: Down to and including healthy tissue and in the subcutaneous layer Percentage of wound debrided: 100 Instrument Used: - (Misonix ultrasonic debridement) Tissue Removed: Yellow slough, devitalized tissue Severity: Fat Layer Exposed Amount of bleeding with debridement: Mild Bleeding Controlled with: Compression and gauze Patient tolerated procedure: Patient tolerated procedure well Post-Debridement Measurements and Additional Note: Post-Debridement Measurements/Treatment - Nurse 1 - General Ulcer Assessment Start: 02/08/25 11:17 Freq: Status: Active Protocol: ONDINA Activity Type Activity Date Activity User E-sign Co-sign Detail Recorded Client Recorded Date Recorded By Document 02/08/25 11:17 ALEX [id number] 02/08/25 11:38 KW 02/08/25 11:17 WC - Today's Visit Information Type of service Follow-up Visit (Physician/APPLICATIONS SPECIALIST ) Arrival Mode Ambulatory, Walker Patient Identification Verified (Name & Yes ) Vital Signs Temperature (97.8 F-99.1 F) 96.1 F L Temperature Source Temporal Pulse Rate (60-100) 65 Pulse Location Monitor Respiratory Rate (12-18) 16 Respiratory rate source Observation Oxygen Delivery Method Room Air Blood Pressure (90/60-120/80) 143/68 H Blood Pressure Mean (mm Hg) 93 Source Monitor Position Semi-Fowlers Blood Pressure Location Right Arm History Since Last Visit- (Skip if this is Patient's initial visit) Have you changed medications since your No last visit? Any new allergies or adverse reactions No Had a fall/change in ADL's that may No increase risk of falls Signs or symptoms of abuse and/or No neglect since last visit Have you been in the hospital since your No last visit? Has dressing in place as prescribed Yes Has compression in place as prescribed Yes Has offloadiing in place as prescribed N/A Experienced any changes in pain level or No management Left Footwear Regular Shoe Right Footwear Regular Shoe Pain Scale: 0-10 Numeric Is Patient Pain Free? Yes - Nurse 1 - General Ulcer Measurement Start: 02/08/25 11:17 Freq: Status: Active Protocol: Activity Type Activity Date Activity User E-sign Co-sign Detail Recorded Client Recorded Date Recorded By Document 02/08/25 11:17 [id number] 02/08/25 11:38 KW 02/08/25 11:17 Wound Center Nurse 1 #24 Left Lateral Leg -Current Size (cm) - Length 2.7 -Current Size (cm) - Width 3.2 -Current Size (cm) - Depth 0.1 -Total Square Cm 8.64 -Exudate Amt Small -Exudate Type Serosanguineous -Wound Margin Distinct, Outline Attached -Granulation Amt Medium (34-66%) -Granulation Quality Lingle -Necrosis Amt Small (1-33%) -Necrotic Tissue Type Adherent Slough -Texture (Marie-wound Skin Appearance) Assessed -Moisture (Marie-wound Skin Appearance) Assessed -Color (Marie-wound Skin Appearance) Assessed, Hemosiderin Staining -Temperature (Marie-wound Skin No Abnormality Appearance) (Pt Warm) -Tenderness on Palpation (Marie-wound No Skin Appearance) -Ulcer Cleansing Soap and Water -Foul Odor after Cleansing No -Anesthetic Used 5% Lidocaine Gel *#22 R Medial Lateral -Current Size (cm) - Length 28 -Current Size (cm) - Width 10.5 -Current Size (cm) - Depth 0.2 -Total Square Cm 294.0 -Exudate Amt Large -Exudate Type Serosanguineous -Wound Margin Distinct, Outline Attached -Granulation Amt Large (67-100%) -Granulation Quality Red -Necrosis Amt Medium (34-66%) -Necrotic Tissue Type Adherent Slough -Texture (Marie-wound Skin Appearance) Assessed -Moisture (Marie-wound Skin Appearance) Assessed -Color (Marie-wound Skin Appearance) Assessed, Hemosiderin Staining -Temperature (Marie-wound Skin No Abnormality Appearance) (Pt Warm) -Tenderness on Palpation (Marie-wound No Skin Appearance) -Ulcer Cleansing Soap and Water -Foul Odor after Cleansing No -Anesthetic Used 5% Lidocaine Gel #18 Left medial LE cluster -Current Size (cm) - Length 15 -Current Size (cm) - Width 8.5 -Current Size (cm) - Depth 0.2 -Total Square Cm 127.5 -Exudate Amt Large -Exudate Type Serosanguineous -Wound Margin Distinct, Outline Attached -Granulation Amt Large (67-100%) -Granulation Quality Red -Necrosis Amt Medium (34-66%) -Necrotic Tissue Type Adherent Slough -Texture (Marie-wound Skin Appearance) Assessed -Moisture (Marie-wound Skin Appearance) Assessed -Color (Marie-wound Skin Appearance) Assessed, Hemosiderin Staining -Temperature (Marie-wound Skin No Abnormality Appearance) (Pt Warm) -Tenderness on Palpation (Marie-wound No Skin Appearance) -Ulcer Cleansing Soap and Water -Foul Odor after Cleansing No -Anesthetic Used 5% Lidocaine Gel Right Calf (cm) 47.2 Right Ankle (cm) 30.5 Left Calf (cm) 44 Left Ankle (cm) 29 WC - Nurse 2 - General Ulcer CM Notes Start: 02/08/25 11:17 Freq: Status: Active Protocol: Activity Type Activity Date Activity User E-sign Co-sign Detail Recorded Client Recorded Date Recorded By Document 02/08/25 12:03 [id number] 02/08/25 12:16 02/08/25 12:03 Wound Center Nurse 2 #24 Left Lateral Leg -Time 12:03 -Correct Patient Yes -Correct Side, Site, Position Yes -Correct Procedure Yes -Procedure Performed Yes -Type of Procedure Debridement -Clinical Debridement Subcutaneous -Tissue Removed Subcutaneous -Post Debridement (cm) - Length 2.4 -Post Debridement (cm) - Width 1.6 -Post Debridement (cm) - Depth 0.1 -Total Square (Post) (cm) 3.84 -Area of Debridement (cm) - Length 2.4 -Area of Debridement (cm) - Width 1.6 -Total Square (Area) (cm) 3.84 -Tunneling No -Undermining/Tunneling No -Circular Undermining No -Wound/Ulcer Outcome Not Healed -Ulcer Cleansing Rinsed/ Irrigated with Saline -Foul Odor after Cleansing No -Bioengineered Tissue No -Bleeding Controlled with Pressure -Treatment Response Procedure Tolerated Well -Offloading No -Assistive Device(s) Walker -Debridement - Subq, 1st 20sq cm No *#22 R Medial Lateral -Time 12:04 -Correct Patient Yes -Correct Side, Site, Position Yes -Correct Procedure Yes -Procedure Performed Yes -Type of Procedure Debridement -Clinical Debridement Subcutaneous -Tissue Removed Subcutaneous -Post Debridement (cm) - Length 11.8 -Post Debridement (cm) - Width 27.0 -Post Debridement (cm) - Depth 0.1 -Total Square (Post) (cm) 318.60 -Area of Debridement (cm) - Length 11.8 -Area of Debridement (cm) - Width 27.0 -Total Square (Area) (cm) 318.60 -Tunneling No -Undermining/Tunneling No -Circular Undermining No -Wound/Ulcer Outcome Not Healed -Ulcer Cleansing Rinsed/ Irrigated with Saline -Foul Odor after Cleansing No -Bioengineered Tissue No -Bleeding Controlled with Pressure -Treatment Response Procedure Tolerated Well -Offloading No -Assistive Device(s) Walker -Debridement - Subq, 1st 20sq cm No #18 Left medial LE cluster -Time 12:04 -Correct Patient Yes -Correct Side, Site, Position Yes -Correct Procedure Yes -Procedure Performed Yes -Type of Procedure Debridement -Clinical Debridement Subcutaneous -Tissue Removed Subcutaneous -Post Debridement (cm) - Length 8.5 -Post Debridement (cm) - Width 12.8 -Post Debridement (cm) - Depth 0.1 -Total Square (Post) (cm) 108.80 -Area of Debridement (cm) - Length 8.5 -Area of Debridement (cm) - Width 12.8 -Total Square (Area) (cm) 108.80 -Tunneling No -Undermining/Tunneling No -Circular Undermining No -Wound/Ulcer Outcome Not Healed -Ulcer Cleansing Rinsed/ Irrigated with Saline -Foul Odor after Cleansing No -Bioengineered Tissue No -Bleeding Controlled with Pressure -Treatment Response Procedure Tolerated Well -Offloading No -Debridement - Subq, 1st 20sq cm Yes -Debridement, SubQ, ea addt'l 20sq cm 21 or part thereof Pain Scale: 0-10 Numeric Is Patient Pain Free? Yes WC - Nurse 3 - General Ulcer D/C NN Start: 02/08/25 11:17 Freq: Status: Active Protocol: Activity Type Activity Date Activity User E-sign Co-sign Detail Recorded Client Recorded Date Recorded By Document 02/08/25 12:41 RB [id number] 02/08/25 12:44 RB 02/08/25 12:41 Wound Care Center Nurse 3 #24 Left Lateral Leg -Ulcer Cleansing Rinsed/ Irrigated with Saline -Primary Dressing Applied Aquacel Extra -Other Dressing ABD -Primary Dressing Covered/Secured with Dry Gauze & Roll Gauze, Secured with Tape -Aquacel Extra 1 *#22 R Medial Lateral -Ulcer Cleansing Rinsed/ Irrigated with Saline -Primary Dressing Applied Aquacel Extra, Optilok 6.5x10 -Primary Dressing Covered/Secured with Dry Gauze & Roll Gauze, Secured with Tape -Aquacel Extra 1 -Optilok 6.5x10 1 #18 Left medial LE cluster -Ulcer Cleansing Rinsed/ Irrigated with Saline -Primary Dressing Applied Aquacel Extra, Optilok 6.5x10 -Primary Dressing Covered/Secured with Dry Gauze & Roll Gauze, Secured with Tape -Aquacel Extra 1 -Optilok 6.5x10 1 BLE -Stockings Yes: pt own circaids Treatment Response Procedure Tolerated Well Pain Scale: 0-10 Numeric Is Patient Pain Free? Yes WC - Visit Discharge Discharge Condition Stable Ambulatory Status Ambulatory, Walker Transportation Private Auto Medication Reconcilliation completed & No provided to patient/care provider Clinical Summary of Care Provided Yes Additional Wound Wound debrided: right lateral leg Laterality: Right Type of Debridement: Excisional debridement Anesthesia Used: 5% Lidocaine Gel and Cetacaine Depth: Down to and including healthy tissue and in the subcutaneous layer Percentage of wound debrided: 100 Instrument Used: - (Misonix ultrasonic debridement) Tissue Removed: Yellow slough, devitalized tissue Severity: Fat Layer Exposed Amount of bleeding with debridement: Mild Bleeding Controlled with: Compression and gauze Patient tolerated procedure: Patient tolerated procedure well Additional Wound Wound debrided: right medial leg Laterality: Right Type of Debridement: Excisional debridement Anesthesia Used: 5% Lidocaine Gel and Cetacaine Depth: Down to and including healthy tissue and in the subcutaneous layer Percentage of wound debrided: 100 Instrument Used: - (Misonix ultrasonic debridement) Tissue Removed: Yellow slough, devitalized tissue Severity: Fat Layer Exposed Amount of bleeding with debridement: Mild Bleeding Controlled with: Compression and gauze Patient tolerated procedure: Patient tolerated procedure well Assessment/Plan Assessment/Plan (1) Lymphedema: CODE(S): I89.0 - Lymphedema, not elsewhere classified (2) Hypertension: CODE(S): I10 - Essential (primary) hypertension QUALIFIERS: Hypertension type: primary hypertension Qualified Code(s): I10 - Essential (primary) hypertension (3) Hyperlipidemia: CODE(S): E78.5 - Hyperlipidemia, unspecified QUALIFIERS: Hyperlipidemia type: mixed hyperlipidemia Qualified Code(s): E78.2 - Mixed hyperlipidemia (4) History of DVT (deep vein thrombosis): CODE(S): Z86.718 - Personal history of other venous thrombosis and embolism (5) Venous insufficiency (chronic) (peripheral): CODE(S): I87.2 - Venous insufficiency (chronic) (peripheral) (6) Venous ulcer of left lower extremity with varicose veins: CODE(S): I83.029 - Varicose veins of left lower extremity with ulcer of unspecified site (7) Edema: CODE(S): R60.9 - Edema, unspecified QUALIFIERS: Edema type: unspecified Qualified Code(s): R60.9 - Edema, unspecified (8) 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 At home wound-care instructions: Will use Circaid compression garments with calcium alginate and super absorber to right LE and ABD to left LE changed everyother day. Due to his chronic lymphedema and being unable to don traditional compression stockings and the presence of venous ulcers on his LE b/l, it is medically necessary for him to have Circaid compression garments. He is using Circaid compression to both legs. I suspect he is not very compliant with his lymphedemapumps and not getting adequate compression with tubigrips. Due to the delayed progress in wound healing of his venous ulcers, we discussed applying for advanced wound healing product for healing his ulcer. Due to the size of his ulcer, Theraskin application approval was requested from his insurance as it is medically necessary for salvaging his limb and healing his ulcer. He underwent 2 applications of Theraskin to this ulcer. Since applicationof Theraskin he had much improvement in epithelialization of his ulcer even though the overall size is not significantly changed there was progress. He is using Circaid compression wraps. Off-loading: The patient was instructed to avoid pressure and friction on the affected areas. Reposition every 2 hours at minimum. Avoid prolonged standing and/or dangling of legs. When seated, feet should be elevated at chest level. Frequent ambulation is encouraged. Encouraged lymphedema pump use. Diet: Patient encouraged to increase protein intake while taking caution to avoid high carbohydrate and/or sugar intake. Labs/cultures/imaging: Wound culture showed Pseudomonas, Escherichia hermannii, Raoultella planticola, Vancomycin Resist. E. faecalis, Alcaligenes faecalis ssp faeca, Staphylococcus cohnii urealyti and anaerobic bacteria on 06/15/24 and he completed on Levofloxacin and Augmentin. Wound culture taken today on right lateral ulcer which showed Raoultella planticola, Staph hemolyticus, staph epidermidis and morganella morganii but no anaeroobic bacteria, Levofloxacin anddoxycyline were prescribed based on culture results. Labs ordered 10/19/2024. Vitamin D was low A1C 5.4% Wound culture from 12/07/24 was positive for Providencia stuartii, Vancomycin resistant E. Faecalis, Corynebacterium striatum and completed Augmentin orally. Follow-up: Return in 1 week for wound care follow up and have dressing changed by home health Tuesday. Return sooner or report to the emergency room should symptoms worsen, or new symptoms arise. Note: [employer] speech recognition hair tinter software was used to create portions of this document. Sound-alike and misspelled words, as well as other hair tinter errors may be contained in the documentation. 02/08/25 1420 <Electronically signed by Patricia Garcia DO> Cosigner Signature (if applicable): CC: ~ Signed [facility] Work Phone: [phone] 735-801605-02-2025 Progress note [facility] [address] [place] [address] Progress Note - Wound Care 02/08/25 1415 MR#: [id number] Acct: [id number] Name: ESTEBAN URBINA Rep #:[id number] : 1955 69 From: Patricia Garcia DO PCP: Dr. Patricia Garcia, DO Status:REG R Location: History of Present Illness Date of Service: 02/08/25 Chief Complaint: venous ulcers of left lower extremity History of Wound: Mauricio is a 69 yo gentleman who is here today for evaluation of ulcers to to his bilateral lower legs. [facility]. The left LE ulcer started after he developed increased swelling and blisters of left leg in Octoberand the right leg started sometime at the end of October. He was seen at PCP's office a culture was taken and it was resistant to several antibiotics. He wastreated initially with Levaquin but had myalgias and then was treated with doxycycline which he finished 2 days ago. He denies improvementand is having swelling to his left calf and thigh. He has been having swelling to both lower extremities for many years and it has worsened over the last few chirag hs. He has not been compliant with compression. He has had increased pain especially in the left leg. He has clear yellow drainage and redness without odor or warmth. He is anti- coagulated on coumadin. He has been washing with Dial soap and witch ifrah. He had been using Collagen at times and using Calcium Alginate and covering with ABD pads during October. He was treated with 3M compression and Aquacel Ag. He was referred to the wound center for ongoing treatment. His ulcers have moderate to heavy drainage. He was in the hospital from 11/30/22 until 12/09/22 for treatment of cellulitis andedema. He underwenttreatment with Vancomycin and IV lasix and compression. Discharged on 12/09/22. He returned to his assisted living apartment on Tuesday12/21/22. Subjective Subjective Mauricio is a 69-year-old male with longstanding history of chronic venous ulcerationto the left lower extremity and now a right lower extremity venous ulcer that isnearly circumferential. There has been improvement in both ulcers over the last week. He is more compliant with elevation. Wound culture from 12/07/24 was positive for Providencia stuartii, Vancomycin resistant E. Faecalis,Corynebacterium striatum and completed Augmentin orally. His edema is better this week and he is tolerating Circaid compression. 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 He continues to use his lymphedema pumps but continues to have painwith use of these pumps. 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 Objective Data Objective Data Vital Signs: Vital Signs Temp Pulse Resp BP O2 Del Method 96.1 F L 65 16 143/68 H Room Air 02/08/25 11:17 02/08/25 11:17 02/08/25 11:17 02/08/25 11:17 02/08/25 11:17 Oxygen Delivery Method Room Air Physical Exam Const alert, oriented x3 and no apparent distress General Appearance: cooperative and comfortable HEENT normocephalic and head/scalp atraumatic Lymph Lymphatic: lymphedema moderate Resp normal respiratory effort Effort and Inspection: able to speak in complete sentences Cardio regular rate and regular rhythm Extremity Extremity Narrative: His ulcers are painful and the right lower leg remains more swollen than his left but there is goodgranulation tissue throughout and slough that is nearly completely removed post - debridement, edges of ulcers are beveled without rolled borders General Extremity: edema bilateral lower extremity Details: severe Skin General Skin Exam: venous stasis and dermatitis Wounds: wounds noted Wound Narrative: as in clinical panel, + devitalized tissue, there is increased depth, + granulation tissue bilateral ulcer with good granulation and moderate to heavy slough prior to debridement and minimalpost debridement Psych mental status grossly normal, thought process normal, cooperative and affect normal Debridement Note Debridement Note Wound debrided: left medial LE ulcer Laterality: Left Type of Debridement: Excisional debridement Anesthesia Used: 5% Lidocaine Gel and Cetacaine Depth: Down to and including healthy tissue and in the subcutaneous layer Percentage of wound debrided: 100 Instrument Used: - (Misonix ultrasonic debridement) Tissue Removed: Yellow slough, devitalized tissue Severity: Fat Layer Exposed Amount of bleeding with debridement: Mild Bleeding Controlled with: Compression and gauze Patient tolerated procedure: Patient tolerated procedure well Post-Debridement Measurements and Additional Note: Post-Debridement Measurements/Treatment - Nurse 1 - General Ulcer Assessment Start: 02/08/25 11:17 Freq: Status: Active Protocol: ONDINA Activity Type Activity Date Activity User E-sign Co-sign Detail Recorded Client Recorded Date Recorded By Document 02/08/25 11:17 ALEX [id number] 02/08/25 11:38 KW 02/08/25 11:17 DEBBIE - Today's Visit Information Type of service Follow-up Visit (Physician/APPLICATIONS SPECIALIST ) Arrival Mode Ambulatory, Walker Patient Identification Verified (Name & Yes ) Vital Signs Temperature (97.8 F-99.1 F) 96.1 F L Temperature Source Temporal Pulse Rate (60-100) 65 Pulse Location Monitor Respiratory Rate (12-18) 16 Respiratory rate source Observation Oxygen Delivery Method Room Air Blood Pressure (90/60-120/80) 143/68 H Blood Pressure Mean (mm Hg) 93 Source Monitor Position Semi-Fowlers Blood Pressure Location Right Arm History Since Last Visit- (Skip if this is Patient's initial visit) Have you changed medications since your No last visit? Any new allergies or adverse reactions No Had a fall/change in ADL's that may No increase risk of falls Signs or symptoms of abuse and/or No neglect since last visit Have you been in the hospital since your No last visit? Has dressing in place as prescribed Yes Has compression in place as prescribed Yes Has offloadiing in place as prescribed N/A Experienced any changes in pain level or No management Left Footwear Regular Shoe Right Footwear Regular Shoe Pain Scale: 0-10 Numeric Is Patient Pain Free? Yes WC - Nurse 1 - General Ulcer Measurement Start: 02/08/25 11:17 Freq: Status: Active Protocol: Activity Type Activity Date Activity User E-sign Co-sign Detail Recorded Client Recorded Date Recorded By Document 02/08/25 11:17 [id number] 02/08/25 11:38 KW 02/08/25 11:17 Wound Center Nurse 1 #24 Left Lateral Leg -Current Size (cm) - Length 2.7 -Current Size (cm) - Width 3.2 -Current Size (cm) - Depth 0.1 -Total Square Cm 8.64 -Exudate Amt Small -Exudate Type Serosanguineous -Wound Margin Distinct, Outline Attached -Granulation Amt Medium (34-66%) -Granulation Quality Lingle -Necrosis Amt Small (1-33%) -Necrotic Tissue Type Adherent Slough -Texture (Marie-wound Skin Appearance) Assessed -Moisture (Marie-wound Skin Appearance) Assessed -Color (Marie-wound Skin Appearance) Assessed, Hemosiderin Staining -Temperature (Marie-wound Skin No Abnormality Appearance) (Pt Warm) -Tenderness on Palpation (Marie-wound No Skin Appearance) -Ulcer Cleansing Soap and Water -Foul Odor after Cleansing No -Anesthetic Used 5% Lidocaine Gel *#22 R Medial Lateral -Current Size (cm) - Length 28 -Current Size (cm) - Width 10.5 -Current Size (cm) - Depth 0.2 -Total Square Cm 294.0 -Exudate Amt Large -Exudate Type Serosanguineous -Wound Margin Distinct, Outline Attached -Granulation Amt Large (67-100%) -Granulation Quality Red -Necrosis Amt Medium (34-66%) -Necrotic Tissue Type Adherent Slough -Texture (Marie-wound Skin Appearance) Assessed -Moisture (Marie-wound Skin Appearance) Assessed -Color (Marie-wound Skin Appearance) Assessed, Hemosiderin Staining -Temperature (Marie-wound Skin No Abnormality Appearance) (Pt Warm) -Tenderness on Palpation (Marie-wound No Skin Appearance) -Ulcer Cleansing Soap and Water -Foul Odor after Cleansing No -Anesthetic Used 5% Lidocaine Gel #18 Left medial LE cluster -Current Size (cm) - Length 15 -Current Size (cm) - Width 8.5 -Current Size (cm) - Depth 0.2 -Total Square Cm 127.5 -Exudate Amt Large -Exudate Type Serosanguineous -Wound Margin Distinct, Outline Attached -Granulation Amt Large (67-100%) -Granulation Quality Red -Necrosis Amt Medium (34-66%) -Necrotic Tissue Type Adherent Slough -Texture (Marie-wound Skin Appearance) Assessed -Moisture (Marie-wound Skin Appearance) Assessed -Color (Marie-wound Skin Appearance) Assessed, Hemosiderin Staining -Temperature (Marie-wound Skin No Abnormality Appearance) (Pt Warm) -Tenderness on Palpation (Marie-wound No Skin Appearance) -Ulcer Cleansing Soap and Water -Foul Odor after Cleansing No -Anesthetic Used 5% Lidocaine Gel Right Calf (cm) 47.2 Right Ankle (cm) 30.5 Left Calf (cm) 44 Left Ankle (cm) 29 WC - Nurse 2 - General Ulcer CM Notes Start: 02/08/25 11:17 Freq: Status: Active Protocol: Activity Type Activity Date Activity User E-sign Co-sign Detail Recorded Client Recorded Date Recorded By Document 02/08/25 12:03 [id number] 02/08/25 12:16 02/08/25 12:03 Wound Center Nurse 2 #24 Left Lateral Leg -Time 12:03 -Correct Patient Yes -Correct Side, Site, Position Yes -Correct Procedure Yes -Procedure Performed Yes -Type of Procedure Debridement -Clinical Debridement Subcutaneous -Tissue Removed Subcutaneous -Post Debridement (cm) - Length 2.4 -Post Debridement (cm) - Width 1.6 -Post Debridement (cm) - Depth 0.1 -Total Square (Post) (cm) 3.84 -Area of Debridement (cm) - Length 2.4 -Area of Debridement (cm) - Width 1.6 -Total Square (Area) (cm) 3.84 -Tunneling No -Undermining/Tunneling No -Circular Undermining No -Wound/Ulcer Outcome Not Healed -Ulcer Cleansing Rinsed/ Irrigated with Saline -Foul Odor after Cleansing No -Bioengineered Tissue No -Bleeding Controlled with Pressure -Treatment Response Procedure Tolerated Well -Offloading No -Assistive Device(s) Walker -Debridement - Subq, 20sq cm No *#22 R Medial Lateral -Time 12:04 -Correct Patient Yes -Correct Side, Site, Position Yes -Correct Procedure Yes -Procedure Performed Yes -Type of Procedure Debridement -Clinical Debridement Subcutaneous -Tissue Removed Subcutaneous -Post Debridement (cm) - Length 11.8 -Post Debridement (cm) - Width 27.0 -Post Debridement (cm) - Depth 0.1 -Total Square (Post) (cm) 318.60 -Area of Debridement (cm) - Length 11.8 -Area of Debridement (cm) - Width 27.0 -Total Square (Area) (cm) 318.60 -Tunneling No -Undermining/Tunneling No -Circular Undermining No -Wound/Ulcer Outcome Not Healed -Ulcer Cleansing Rinsed/ Irrigated with Saline -Foul Odor after Cleansing No -Bioengineered Tissue No -Bleeding Controlled with Pressure -Treatment Response Procedure Tolerated Well -Offloading No -Assistive Device(s) Walker -Debridement - Subq, 20sq cm No #18 Left medial LE cluster -Time 12:04 -Correct Patient Yes -Correct Side, Site, Position Yes -Correct Procedure Yes -Procedure Performed Yes -Type of Procedure Debridement -Clinical Debridement Subcutaneous -Tissue Removed Subcutaneous -Post Debridement (cm) - Length 8.5 -Post Debridement (cm) - Width 12.8 -Post Debridement (cm) - Depth 0.1 -Total Square (Post) (cm) 108.80 -Area of Debridement (cm) - Length 8.5 -Area of Debridement (cm) - Width 12.8 -Total Square (Area) (cm) 108.80 -Tunneling No -Undermining/Tunneling No -Circular Undermining No -Wound/Ulcer Outcome Not Healed -Ulcer Cleansing Rinsed/ Irrigated with Saline -Foul Odor after Cleansing No -Bioengineered Tissue No -Bleeding Controlled with Pressure -Treatment Response Procedure Tolerated Well -Offloading No -Debridement - Subq, 1st 20sq cm Yes -Debridement, SubQ, ea addt'l 20sq cm 21 or part thereof Pain Scale: 0-10 Numeric Is Patient Pain Free? Yes - Nurse 3 - General Ulcer D/C NN Start: 02/08/25 11:17 Freq: Status: Active Protocol: Activity Type Activity Date Activity User E-sign Co-sign Detail Recorded Client Recorded Date Recorded By Document 02/08/25 12:41 ARPIT [id number] 02/08/25 12:44 ARPIT 02/08/25 12:41 Wound Care Center Nurse 3 #24 Left Lateral Leg -Ulcer Cleansing Rinsed/ Irrigated with Saline -Primary Dressing Applied Aquacel Extra -Other Dressing ABD -Primary Dressing Covered/Secured with Dry Gauze & Roll Gauze, Secured with Tape -Aquacel Extra 1 *#22 R Medial Lateral -Ulcer Cleansing Rinsed/ Irrigated with Saline -Primary Dressing Applied Aquacel Extra, Optilok 6.5x10 -Primary Dressing Covered/Secured with Dry Gauze & Roll Gauze, Secured with Tape -Aquacel Extra 1 -Optilok 6.5x10 1 #18 Left medial LE cluster -Ulcer Cleansing Rinsed/ Irrigated with Saline -Primary Dressing Applied Aquacel Extra, Optilok 6.5x10 -Primary Dressing Covered/Secured with Dry Gauze & Roll Gauze, Secured with Tape -Aquacel Extra 1 -Optilok 6.5x10 1 BLE -Stockings Yes: pt own circaids Treatment Response Procedure Tolerated Well Pain Scale: 0-10 Numeric Is Patient Pain Free? Yes - Visit Discharge Discharge Condition Stable Ambulatory Status Ambulatory, Walker Transportation Private Auto Medication Reconcilliation completed & No provided to patient/care provider Clinical Summary of Care Provided Yes Additional Wound Wound debrided: right lateral leg Laterality: Right Type of Debridement: Excisional debridement Anesthesia Used: 5% Lidocaine Gel and Cetacaine Depth: Down to and including healthy tissue and in the subcutaneous layer Percentage of wound debrided: 100 Instrument Used: - (Misonix ultrasonic debridement) Tissue Removed: Yellow slough, devitalized tissue Severity: Fat Layer Exposed Amount of bleeding with debridement: Mild Bleeding Controlled with: Compression and gauze Patient tolerated procedure: Patient tolerated procedure well Additional Wound Wound debrided: right medial leg Laterality: Right Type of Debridement: Excisional debridement Anesthesia Used: 5% Lidocaine Gel and Cetacaine Depth: Down to and including healthy tissue and in the subcutaneous layer Percentage of wound debrided: 100 Instrument Used: - (Misonix ultrasonic debridement) Tissue Removed: Yellow slough, devitalized tissue Severity: Fat Layer Exposed Amount of bleeding with debridement: Mild Bleeding Controlled with: Compression and gauze Patient tolerated procedure: Patient tolerated procedure well Assessment/Plan Assessment/Plan (1) Lymphedema: CODE(S): I89.0 - Lymphedema, not elsewhere classified (2) Hypertension: CODE(S): I10 - Essential (primary) hypertension QUALIFIERS: Hypertension type: primary hypertension Qualified Code(s): I10 - Essential (primary) hypertension (3) Hyperlipidemia: CODE(S): E78.5 - Hyperlipidemia, unspecified QUALIFIERS: Hyperlipidemia type: mixed hyperlipidemia Qualified Code(s): E78.2 - Mixed hyperlipidemia (4) History of DVT (deep vein thrombosis): CODE(S): Z86.718 - Personal history of other venous thrombosis and embolism (5) Venous insufficiency (chronic) (peripheral): CODE(S): I87.2 - Venous insufficiency (chronic) (peripheral) (6) Venous ulcer of left lower extremity with varicose veins: CODE(S): I83.029 - Varicose veins of left lower extremity with ulcer of unspecified site (7) Edema: CODE(S): R60.9 - Edema, unspecified QUALIFIERS: Edema type: unspecified Qualified Code(s): R60.9 - Edema, unspecified (8) 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 At home wound-care instructions: Will use Circaid compression garments with calcium alginate and super absorber to right LE and ABD to left LE changed everyother day. Due to his chronic lymphedema and being unable to don traditional compression stockings and the presence of venous ulcers on his LE b/l, it is medically necessary for him to have Circaid compression garments. He is using Circaid compression to both legs. I suspect he is not very compliant with his l ymphedemapumps and not getting adequate compression with tubigrips. Due to the delayed progress in wound healing of his venous ulcers, we discussed applying for advanced wound healing product for healing his ulcer. Due to the size of his ulcer, Theraskin application approval was requested from his insurance as it is medically necessary for salvaging his limb and healing his ulcer. He underwent 2 applications of Theraskin to this ulcer. Since applicationof Theraskin he had much improvement in epithelialization of his ulcer even though the overall size is not significantly changed there was progress. He is using Circaid compression wraps. Off-loading: The patient was instructed to avoid pressure and friction on the affected areas. Reposition every 2 hours at minimum. Avoid prolonged standing and/or dangling of legs. When seated, feet should be elevated at chest level. Frequent ambulation is encouraged. Encouraged lymphedema pump use. Diet: Patient encouraged to increase protein intake while taking caution to avoid high carbohydrateand/or sugar intake. Labs/cultures/imaging: Wound culture showed Pseudomonas, Escherichia hermannii, Raoultella planticola, Vancomycin Resist. E. faecalis, Alcaligenes faecalis ssp faeca, Staphylococcus cohnii urealyti and anaerobic bacteria on 06/15/24 and he completed on Levofloxacin and Augmentin. Wound culture taken today on right lateral ulcer which showed Raoultella planticola, Staph hemolyticus, staph epidermidis and morganella morganii but no anaeroobic bacteria, Levofloxacin anddoxycyline were prescribed based on culture results. Labs ordered 10/19/2024. Vitamin D was low A1C 5.4% Wound culture from 12/07/24 was positive for Providencia stuartii, Vancomycin resistant E. Faecalis, Corynebacterium striatum and completed Augmentinorally. Follow-up: Return in 1 week for wound care follow up and have dressing changed by home health Tuesday. Return sooner or report to the emergency room should symptoms worsen, or new symptoms arise. Note: [employer] speech recognition hair tinter software was used to create portions of this document. Sound-alike and misspelled words, as well as other hair tinter errors may be contained in the documentation. 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 January 29, 2025 10:04am Venous ulcers of both lower extremities deleted January 29, 2025 10:04am Hyperlipidemia chronic January 9:00am Hypertension chronic February 01, 2025 9:00am Lymphedema chronic February 01 9:00am Venous insufficiency (chroni c) (peripheral) chronic February 01, 2025 9:00am Ulcer of left lower extremit y with fat layer exposed resolved January 9:00am Edema inactive February 01 9:00am History of DVT (deep vein thrombosis) inactive February 01, 2025 9:00am Venous ulcer of left lower extremity with varicose veins inactive Ap ril 2024 9:00am Venous ulcer of right lower extremity with varicose veins inactive Ap ril 2024 9:00am Hyperlipidemia chronic March 08, 2025 11:30am Hypertension chronic March 08 11:30am Lymphedema chronic March 08, 2025 11:30am Venous insufficiency (chroni c) (peripheral) chronic March 08, 2025 1 1:30am Ulcer of left lower extremit y with fat layer exposed resolved March 08, 2025 11:30am Edema inactive March 08, 2025 11:30am History of DVT (deep vein thrombosis) inactive March 08, 2025 1 1:30am Venous ulcer of left lower extremity with varicose veins inactive Ma y 2024 11:30am Venous ulcer of right lower extremity with varicose veins inactive Ma y 2024 11:30am Hyperlipidemia chronic April 05, 2025 11:15am Hypertension chronic April 05, 2 025 11:15am Lymphedema chronic April 05 11:15am Venous insufficiency (chroni c) (peripheral) chronic April 05, 2025 11:15am Ulcer of left lower extremit y with fat layer exposed resolved March 11:15am Edema inactive April 05 11:15am History of DVT (deep vein thrombosis) inactive April 05, 2025 11:15am Venous ulcer of left lower extremity with varicose veins inactive Ju ne 2024 11:15am Venous ulcer of right lower extremity with varicose veins inactive Ju ne 2024 11:15am Hyperlipidemia chronic May 03, 2025 11:30am Hypertension chronic May 03, 2 025 11:30am Lymphedema chronic May 03 11:30am Venous insufficiency (chroni c) (peripheral) chronic May 03, 2025 11:30am Ulcer of left lower extremit y with fat layer exposed resolved April 11:30am Edema inactive May 03 11:30am History of DVT (deep vein thrombosis) inactive May 03, 2025 11:30am Venous ulcer of left lower extremity with varicose veins inactive ly 2024 11:30am Venous ulcer of right lower extremity with varicose veins inactive [facility] 2024 11:30am [facility] Work Phone: [phone]) 632-749004-01-2025 [facility]03-31-2025 [facility]03-28-2025 Progress note Author Patricia Garcia [facility] Note Date/Time January 04, 2025 2:3 5pm [facility] [address] [place] [id number] Progress Note - Wound Care 01/04/25 1426 MR#: [id number] Acct: [id number] Name: ESTEBAN URBINA Rep #:[id number] : 1955 69 From: Patricia Garcia DO PCP: Dr. Patricia Garcia DO Status:REG RCR Location: History of Present Illness Date of Service: 01/04/25 Chief Complaint: venous ulcers of left lower extremity History of Wound: Mauricio is a 69 yo gentleman who is here today for evaluation of ulcers to to his bilateral lower legs. He has been treated multiple times in [facility] at the wound healing center for similar ulcers. The left LE ulcer started after he developed increased swelling and blisters of left leg in October and the right leg started sometime at the end of October. He was seen at PCP's office a culture was taken and it was resistant to several antibiotics. He was treated initially with Levaquin but had myalgias and then was treated with doxycycline which he finished 2 days ago. He denies improvementand is having swelling to his left calf and thigh. He has been having swelling to both lower extremities for many years and it has worsened over the last few months. He has not been compliant with compression. He has had increased pain especially in the left leg. He has clear yellow drainage and redness without odor or warmth. He is anti-coagulated on coumadin. He has been washing with Dial soap and witch ifrah. He had been using Collagen at times and using Calcium Alginate and covering with ABD pads during October. He was treated with 3M compression and Aquacel Ag. He was referred to the wound center for ongoing treatment. His ulcers have moderate to heavy drainage. He was in the hospital from 11/30/22 until 12/09/22 for treatment of cellulitis andedema. He underwent treatment with Vancomycin and IV lasix and compression. Discharged on 12/09/22. He returned to his assisted living apartment on Tuesday12/21/22. Subjective Subjective Mauricio is a 69-year-old male with longstanding history of chronic venous ulcerationto the left lower extremity and now a right lower extremity venous ulcer that isnearly circumferential. Wound culture from 12/07/24 was positive for Providencia stuartii, Vancomycin resistant E. Faecalis, Corynebacterium striatum and completed Augmentin orally. His edema is better this week and he tolerated the 3M wraps. His ulcers are generally the same this week. He is using KISHORE wraps forcompression. 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 He continues to use his lymphedema pumps but continues to have pain with use of these pumps. 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 Objective Data Objective Data Vital Signs: Vital Signs Temp Pulse Resp BP O2 Del Method 96.3 F L 67 18 148/84 H Room Air 01/04/25 11:43 01/04/25 11:43 01/04/25 11:43 01/04/25 11:43 01/04/25 11:43 Oxygen Delivery Method Room Air Physical Exam Const alert, oriented x3 and no apparent distress General Appearance: cooperative and comfortable HEENT normocephalic and head/scalp atraumatic Lymph Lymphatic: lymphedema moderate Resp normal respiratory effort Effort and Inspection: able to speak in complete sentences Cardio regular rate and regular rhythm Extremity Extremity Narrative: His ulcers are painful and larger and the right lower leg remains more swollen than his left General Extremity: edema bilateral lower extremity Details: severe Skin General Skin Exam: venous stasis and dermatitis Wounds: wounds noted Wound Narrative: as in clinical panel, + devitalized tissue, there is increased depth, + granulation tissue bilateral ulcer with good granulation and moderate to heavy slough prior to debridement and minimal post debridement Psych mental status grossly normal, thought process normal, cooperative and affect normal Debridement Note Debridement Note Wound debrided: left medial LE ulcer Laterality: Left Type of Debridement: Excisional debridement Anesthesia Used: 5% Lidocaine Gel and Cetacaine Depth: Down to and including healthy tissue and in the subcutaneous layer Percentage of wound debrided: 100 Instrument Used: - (Misonix ultrasonic debridement) Tissue Removed: Yellow slough, devitalized tissue Severity: Fat Layer Exposed Amount of bleeding with debridement: Mild Bleeding Controlled with: Compression and gauze Patient tolerated procedure: Patient tolerated procedure well Post-Debridement Measurements and Additional Note: Post-Debridement Measurements/Treatment - Nurse 1 - General Ulcer Assessment Start: 12/14/24 09:45 Freq: Status: Active Protocol: ONDINA Activity Type Activity Date Activity User E-sign Co-sign Detail Recorded Client Recorded Date Recorded By Document 12/14/24 09:45 RB [id number] 12/14/24 10:11 RB Document 12/21/24 10:17 KW [id number] 12/21/24 10:26 KW Document 12/28/24 09:24 KW [id number] 12/28/24 09:35 KW Document 01/04/25 11:43 KW [id number] 01/04/25 11:51 KW 12/14/24 12/21/24 12/28/24 09:45 10:17 09:24 - Today's Visit Information Type of service Follow-up Visit Follow-up Visit Follow-up Visit (Physician/APPLICATIONS SPECIALIST (Physician/APPLICATIONS SPECIALIST (Physician/APPLICATIONS SPECIALIST ) ) ) Arrival Mode Ambulatory, Ambulatory, Ambulatory, Walker Walker Walker Transfer Assistance None Patient Identification Verified (Name & Yes Yes Yes ) Patient Requires Transmission-Based No Precautions Vital Signs Temperature (97.8 F-99.1 F) 95.5 F L 96.5 F L 97.2 F L Temperature Source Temporal Temporal Temporal Pulse Rate (60-100) 74 84 75 Pulse Location Monitor Monitor Monitor Respiratory Rate (12-18) 18 16 16 Respiratory rate source Observation Observation Observation Oxygen Delivery Method Room Air Room Air Blood Pressure (90/60-120/80) 126/70 H 132/61 H 179/75 H Blood Pressure Mean (mm Hg) 88 84 109 Source Monitor Monitor Monitor Position Semi-Fowlers Semi-Fowlers Semi-Fowlers Blood Pressure Location Right Arm Left Arm Left Arm History Since Last Visit- (Skip if this is Patient's initial visit) Have you changed medications since your Yes No No last visit? Any new allergies or adverse reactions No No No Had a fall/change in ADL's that may No No No increase risk of falls Signs or symptoms of abuse and/or No No No neglect since last visit Have you been in the hospital since your Yes No No last visit? Has dressing in place as prescribed Yes Yes Yes Has compression in place as prescribed Yes Yes Yes Has offloadiing in place as prescribed No N/A N/A Experienced any changes in pain level or No No No management Left Footwear Regular Shoe Regular Shoe Regular Shoe Right Footwear Regular Shoe Regular Shoe Regular Shoe Pain Scale: 0-10 Numeric Is Patient Pain Free? Yes Yes Yes LLE -Description Sharp,Burning -Intensity 7 -Duration (hours) Acute -Pain Behavior Withdrawal from Touch -Pain Aggravating Factors ADL's,Exercise/ Activity, Debridement -Alleviating Factors/Interventions Medication -Effectiveness of Alleviating Factor/ Moderately Intervention effective 01/04/25 11:43 WC - Today's Visit Information Type of service Follow-up Visit (Physician/APPLICATIONS SPECIALIST ) Arrival Mode Ambulatory, Walker Transfer Assistance Patient Identification Verified (Name & Yes ) Patient Requires Transmission-Based Precautions Vital Signs Temperature (97.8 F-99.1 F) 96.3 F L Temperature Source Temporal Pulse Rate (60-100) 67 Pulse Location Monitor Respiratory Rate (12-18) 18 Respiratory rate source Observation Oxygen Delivery Method Room Air Blood Pressure (90/60-120/80) 148/84 H Blood Pressure Mean (mm Hg) 105 Source Monitor Position Semi-Fowlers Blood Pressure Location Left Arm History Since Last Visit- (Skip if this is Patient's initial visit) Have you changed medications since your No last visit? Any new allergies or adverse reactions No Had a fall/change in ADL's that may No increase risk of falls Signs or symptoms of abuse and/or No neglect since last visit Have you been in the hospital since your No last visit? Has dressing in place as prescribed Yes Has compression in place as prescribed No Has offloadiing in place as prescribed N/A Experienced any changes in pain level or No management Left Footwear Regular Shoe Right Footwear Regular Shoe Pain Scale: 0-10 Numeric Is Patient Pain Free? Yes LLE -Description -Intensity -Duration (hours) -Pain Behavior -Pain Aggravating Factors -Alleviating Factors/Interventions -Effectiveness of Alleviating Factor/ Intervention WC - Nurse 1 - General Ulcer Measurement Start: 12/14/24 09:45 Freq: Status: Active Protocol: Activity Type Activity Date Activity User E-sign Co-sign Detail Recorded Client Recorded Date Recorded By Document 12/14/24 09:45 RB [id number] 12/14/24 10:11 RB Document 12/21/24 10:17 KW [id number] 12/21/24 10:26 KW Document 12/28/24 09:24 KW [id number] 12/28/24 09:35 KW Document 01/04/25 11:43 KW [id number] 01/04/25 11:51 KW 12/14/24 12/21/24 12/28/24 09:45 10:17 09:24 Wound Center Nurse 1 #23 R Lat Leg -Combined with other wound No -Current Size (cm) - Length 10.5 -Current Size (cm) - Width 10.5 -Current Size (cm) - Depth 0.2 -Total Square Cm 110.25 -Photo Taken Yes -Tunneling No -Undermining/Tunneling No -Circular Undermining No -Exudate Amt Medium -Exudate Type Serosanguineous -Wound Margin Distinct, Outline Attached -Granulation Amt Medium (34-66%) -Granulation Quality Lingle -Slough/Fibrin Yes -Necrosis Amt Small (1-33%) -Necrotic Tissue Type Adherent Slough -Structure Exposed N/A -Texture (Marie-wound Skin Appearance) Assessed, Scarring -Moisture (Marie-wound Skin Appearance) Assessed -Color (Marie-wound Skin Appearance) Assessed -Temperature (Marie-wound Skin No Abnormality Appearance) (Pt Warm) -Tenderness on Palpation (Marie-wound No Skin Appearance) -Ulcer Cleansing Wound Cleanser -Foul Odor after Cleansing No -Anesthetic Used 5% Lidocaine Gel #24 Left Lateral Leg -Combined with other wound No -Current Size (cm) - Length 10.5 3 3.4 -Current Size (cm) - Width 10.5 2.8 2.4 -Current Size (cm) - Depth 0.2 0.1 0.2 -Total Square Cm 110.25 8.4 8.16 -Date of Last Picture (Recall this 12/21/24 field) -Photo Taken Yes -Tunneling No -Undermining/Tunneling No -Circular Undermining No -Exudate Amt Medium Medium Medium -Exudate Type Serosanguineous Serosanguineous Serosanguineous -Wound Margin Distinct, Distinct, Distinct, Outline Outline Outline Attached Attached Attached -Granulation Amt Medium (34-66%) Medium (34-66%) Small (1-33%) -Granulation Quality Lingle Lingle Lingle,Red -Slough/Fibrin Yes -Necrosis Amt Medium (34-66%) Large (67-100%) Large (67-100%) -Necrotic Tissue Type Adherent Slough Adherent Slough Adherent Slough -Structure Exposed N/A -Texture (Marie-wound Skin Appearance) Assessed, Assessed Assessed Scarring -Moisture (Marie-wound Skin Appearance) Assessed Assessed Assessed,Dry/ Scaly -Color (Marie-wound Skin Appearance) Assessed Assessed, Assessed, Erythema, Hemosiderin Hemosiderin Staining Staining -Temperature (Marie-wound Skin No Abnormality No Abnormality No Abnormality Appearance) (Pt Warm) (Pt Warm) (Pt Warm) -Tenderness on Palpation (Marie-wound No No No Skin Appearance) -Ulcer Cleansing Wound Cleanser Rinsed/ Soap and Water Irrigated with Saline -Foul Odor after Cleansing No No -Anesthetic Used 5% Lidocaine 5% Lidocaine 5% Lidocaine Gel Gel Gel *#22 R Medial Leg circumferential -Combined with other wound No -Current Size (cm) - Length 14.5 12 12.2 -Current Size (cm) - Width 14.5 37.4 32.5 -Current Size (cm) - Depth 0.2 0.2 0.2 -Total Square Cm 210.25 448.8 396.50 -Date of Last Picture (Recall this 12/21/24 field) -Photo Taken Yes -Tunneling No -Undermining/Tunneling No -Circular Undermining No -Exudate Amt Medium Large Medium -Exudate Type Serosanguineous Serosanguineous Serosanguineous -Wound Margin Thickened & Distinct, Distinct, Rolled Under Outline Outline Attached Attached -Granulation Amt Medium (34-66%) Small (1-33%) Small (1-33%) -Granulation Quality Lingle Lingle Red -Slough/Fibrin Yes -Necrosis Amt Medium (34-66%) Large (67-100%) Large (67-100%) -Necrotic Tissue Type Adherent Slough Adherent Slough Adherent Slough -Structure Exposed N/A -Texture (Marie-wound Skin Appearance) Assessed, Assessed Assessed Scarring -Moisture (Marie-wound Skin Appearance) Assessed Assessed Assessed,Dry/ Scaly -Color (Marie-wound Skin Appearance) Assessed Assessed, Assessed, Erythema, Hemosiderin Hemosiderin Staining Staining -Temperature (Marie-wound Skin No Abnormality No Abnormality No Abnormality Appearance) (Pt Warm) (Pt Warm) (Pt Warm) -Tenderness on Palpation (Marie-wound No No No Skin Appearance) -Ulcer Cleansing Wound Cleanser Soap and Water -Foul Odor after Cleansing No No No -Anesthetic Used 5% Lidocaine 5% Lidocaine 5% Lidocaine Gel Gel Gel #18 Left medial LE cluster -Combined with other wound No -Current Size (cm) - Length 9 8.8 8.4 -Current Size (cm) - Width 15 15.5 15.3 -Current Size (cm) - Depth 0.2 0.3 0.2 -Total Square Cm 135 136.40 128.52 -Date of Last Picture (Recall this 12/21/24 12/28/24 field) -Photo Taken Yes -Tunneling No -Undermining/Tunneling No -Circular Undermining No -Exudate Amt Medium Medium Small -Exudate Type Serosanguineous Serosanguineous Serosanguineous -Wound Margin Distinct, Distinct, Distinct, Outline Outline Outline Attached Attached Attached -Granulation Amt Medium (34-66%) Small (1-33%) Small (1-33%) -Granulation Quality Lingle Lingle Red -Slough/Fibrin Yes -Necrosis Amt Medium (34-66%) Large (67-100%) Large (67-100%) -Necrotic Tissue Type Adherent Slough Adherent Slough Adherent Slough -Structure Exposed N/A -Texture (Marie-wound Skin Appearance) Scarring Assessed Assessed -Moisture (Marie-wound Skin Appearance) Assessed Assessed Assessed,Dry/ Scaly -Color (Marie-wound Skin Appearance) Assessed Assessed, Assessed, Erythema, Hemosiderin Hemosiderin Staining Staining -Temperature (Marie-wound Skin No Abnormality No Abnormality No Abnormality Appearance) (Pt Warm) (Pt Warm) (Pt Warm) -Tenderness on Palpation (Marie-wound No No No Skin Appearance) -Ulcer Cleansing Wound Cleanser Soap and Water -Foul Odor after Cleansing No No No -Anesthetic Used 5% Lidocaine 5% Lidocaine 5% Lidocaine Gel Gel Gel Lower Limb Edema Present Yes Right Calf (cm) 52.2 53.5 49.2 Right Ankle (cm) 29.2 30.2 30.5 Left Calf (cm) 47.5 47.0 45.4 Left Ankle (cm) 29.4 30.5 29.7 01/04/25 11:43 Wound Center Nurse 1 #23 R Lat Leg -Combined with other wound -Current Size (cm) - Length -Current Size (cm) - Width -Current Size (cm) - Depth -Total Square Cm -Photo Taken -Tunneling -Undermining/Tunneling -Circular Undermining -Exudate Amt -Exudate Type -Wound Margin -Granulation Amt -Granulation Quality -Slough/Fibrin -Necrosis Amt -Necrotic Tissue Type -Structure Exposed -Texture (Marie-wound Skin Appearance) -Moisture (Marie-wound Skin Appearance) -Color (Marie-wound Skin Appearance) -Temperature (Marie-wound Skin Appearance) -Tenderness on Palpation (Marie-wound Skin Appearance) -Ulcer Cleansing -Foul Odor after Cleansing -Anesthetic Used #24 Left Lateral Leg -Combined with other wound -Current Size (cm) - Length 2.7 -Current Size (cm) - Width 1.9 -Current Size (cm) - Depth 0.1 -Total Square Cm 5.13 -Date of Last Picture (Recall this 01/04/25 field) -Photo Taken -Tunneling -Undermining/Tunneling -Circular Undermining -Exudate Amt -Exudate Type -Wound Margin -Granulation Amt -Granulation Quality -Slough/Fibrin -Necrosis Amt -Necrotic Tissue Type -Structure Exposed -Texture (Marie-wound Skin Appearance) -Moisture (Marie-wound Skin Appearance) -Color (Marie-wound Skin Appearance) -Temperature (Marie-wound Skin Appearance) -Tenderness on Palpation (Marie-wound Skin Appearance) -Ulcer Cleansing -Foul Odor after Cleansing -Anesthetic Used *#22 R Medial Leg circumferential -Combined with other wound -Current Size (cm) - Length 11.5 -Current Size (cm) - Width 33 -Current Size (cm) - Depth 0.2 -Total Square Cm 379.5 -Date of Last Picture (Recall this 01/04/25 field) -Photo Taken -Tunneling -Undermining/Tunneling -Circular Undermining -Exudate Amt Medium -Exudate Type Serosanguineous -Wound Margin Distinct, Outline Attached -Granulation Amt Large (67-100%) -Granulation Quality Red -Slough/Fibrin -Necrosis Amt Medium (34-66%) -Necrotic Tissue Type Adherent Slough -Structure Exposed -Texture (Marie-wound Skin Appearance) Assessed -Moisture (Marie-wound Skin Appearance) Assessed -Color (Marie-wound Skin Appearance) Assessed, Erythema, Hemosiderin Staining -Temperature (Marie-wound Skin No Abnormality Appearance) (Pt Warm) -Tenderness on Palpation (Marie-wound No Skin Appearance) -Ulcer Cleansing Soap and Water -Foul Odor after Cleansing -Anesthetic Used 5% Lidocaine Gel #18 Left medial LE cluster -Combined with other wound -Current Size (cm) - Length 8.5 -Current Size (cm) - Width 15 -Current Size (cm) - Depth 0.3 -Total Square Cm 127.5 -Date of Last Picture (Recall this 01/04/25 field) -Photo Taken -Tunneling -Undermining/Tunneling -Circular Undermining -Exudate Amt Medium -Exudate Type Serosanguineous -Wound Margin Distinct, Outline Attached -Granulation Amt Medium (34-66%) -Granulation Quality Red -Slough/Fibrin -Necrosis Amt Large (67-100%) -Necrotic Tissue Type Adherent Slough -Structure Exposed -Texture (Marie-wound Skin Appearance) Assessed -Moisture (Marie-wound Skin Appearance) Assessed -Color (Marie-wound Skin Appearance) Assessed, Erythema, Hemosiderin Staining -Temperature (Marie-wound Skin No Abnormality Appearance) (Pt Warm) -Tenderness on Palpation (Marie-wound No Skin Appearance) -Ulcer Cleansing Soap and Water -Foul Odor after Cleansing No -Anesthetic Used 5% Lidocaine Gel Lower Limb Edema Present Right Calf (cm) 48 Right Ankle (cm) 28.5 Left Calf (cm) 41 Left Ankle (cm) 30 WC - Nurse 2 - General Ulcer CM Notes Start: 12/14/24 09:45 Freq: Status: Active Protocol: Activity Type Activity Date Activity User E-sign Co-sign Detail Recorded Client Recorded Date Recorded By Document 12/14/24 10:42 GM [id number] 12/14/24 11:03 GM Document 12/21/24 10:41 GM [id number] 12/21/24 11:10 GM Document 12/28/24 10:00 GM [id number] 12/28/24 10:24 GM Document 01/04/25 12:31 DS [id number] 01/04/25 12:39 DS Edit Result 01/04/25 12:31 DS (1) [id number] 01/04/25 13:02 DS (1) #24 Left Lateral Leg - Post Debridement (cm) - Length => 2.8 - Post Debridement (cm) - Width => 2.3 - Post Debridement (cm) - Depth => 0.1 - Total Square (Post) (cm) => 6.44 - Area of Debridement (cm) - Length => 2.8 - Area of Debridement (cm) - Width => 2.3 - Total Square (Area) (cm) => 6.44 - Debridement, SubQ, ea addt'l 20sq cm => 20 or part thereof *#22 R Medial Leg circumferential - Post Debridement (cm) - Length => 11.8 - Post Debridement (cm) - Width => 25.5 - Post Debridement (cm) - Depth => 0.1 - Total Square (Post) (cm) => 300.90 - Area of Debridement (cm) - Length => 11.8 - Area of Debridement (cm) - Width => 25.5 - Total Square (Area) (cm) => 300.90 #18 Left medial LE cluster - Post Debridement (cm) - Length => 8.8 - Post Debridement (cm) - Width => 12.8 - Post Debridement (cm) - Depth => 0.1 - Total Square (Post) (cm) => 112.64 - Area of Debridement (cm) - Length => 8.8 - Area of Debridement (cm) - Width => 12.8 - Total Square (Area) (cm) => 112.64 12/14/24 12/21/24 12/28/24 10:42 10:41 10:00 Wound Center Nurse 2 #23 R Lat Leg -Time 10:43 -Correct Patient Yes -Correct Side, Site, Position Yes -Correct Procedure Yes -Procedure Performed Yes -Type of Procedure Debridement -Clinical Debridement Subcutaneous -Tissue Removed Subcutaneous -Tunneling No -Undermining/Tunneling No -Circular Undermining No -Wound/Ulcer Outcome Not Healed -Ulcer Cleansing Rinsed/ Irrigated with Saline -Foul Odor after Cleansing No -Bioengineered Tissue No -Bleeding Controlled with Pressure -Treatment Response Procedure Tolerated Well -Debridement - Subq, 1st 20sq cm No #24 Left Lateral Leg -Time 10:42 10:41 10:05 -Correct Patient Yes Yes Yes -Correct Side, Site, Position Yes Yes Yes -Correct Procedure Yes Yes Yes -Procedure Performed Yes Yes Yes -Type of Procedure Debridement Debridement Debridement -Clinical Debridement Subcutaneous Subcutaneous Subcutaneous -Tissue Removed Subcutaneous Subcutaneous -Post Debridement (cm) - Length 3.1 3.1 3.2 -Post Debridement (cm) - Width 1.9 2.3 2.0 -Post Debridement (cm) - Depth 0.1 0.1 0.1 -Total Square (Post) (cm) 5.89 7.13 6.40 -Area of Debridement (cm) - Length 3.0 3.1 3.2 -Area of Debridement (cm) - Width 1.9 2.3 2.0 -Total Square (Area) (cm) 5.70 7.13 6.40 -Tunneling No No No -Undermining/Tunneling No No No -Circular Undermining No No No -Wound/Ulcer Outcome Not Healed Not Healed Not Healed -Ulcer Cleansing Rinsed/ Rinsed/ Rinsed/ Irrigated with Irrigated with Irrigated with Saline Saline Saline -Foul Odor after Cleansing No No No -Bioengineered Tissue No No No -Bleeding Controlled with Pressure Pressure Pressure -Treatment Response Procedure Procedure Procedure Tolerated Well Tolerated Well Tolerated Well -Offloading No No No -Debridement - Subq, 1st 20sq cm No No No -Debridement, SubQ, ea addt'l 20sq cm or part thereof -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) *#22 R Medial Leg circumferential -Time 10:43 10:42 10:06 -Correct Patient Yes Yes Yes -Correct Side, Site, Position Yes Yes Yes -Correct Procedure Yes Yes Yes -Procedure Performed Yes Yes Yes -Type of Procedure Debridement Debridement Debridement -Clinical Debridement Subcutaneous Subcutaneous Subcutaneous -Tissue Removed Subcutaneous Subcutaneous Subcutaneous -Post Debridement (cm) - Length 12.0 12.0 12.0 -Post Debridement (cm) - Width 26.0 27.0 26.5 -Post Debridement (cm) - Depth 0.1 0.2 0.1 -Total Square (Post) (cm) 312.00 324.00 318.00 -Area of Debridement (cm) - Length 12.0 12.0 12.0 -Area of Debridement (cm) - Width 26.0 27.0 26.5 -Total Square (Area) (cm) 312.00 324.00 318.00 -Tunneling No No No -Undermining/Tunneling No No No -Circular Undermining No No No -Wound/Ulcer Outcome Not Healed Not Healed Not Healed -Ulcer Cleansing Rinsed/ Rinsed/ Rinsed/ Irrigated with Irrigated with Irrigated with Saline Saline Saline -Foul Odor after Cleansing No No No -Bioengineered Tissue No No No -Bleeding Controlled with Pressure Pressure Pressure -Treatment Response Procedure Procedure Procedure Tolerated Well Tolerated Well Tolerated Well -Offloading No -Debridement - Subq, 1st 20sq cm No No No -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) #18 Left medial LE cluster -Time 10:43 10:43 10:06 -Correct Patient Yes Yes Yes -Correct Side, Site, Position Yes Yes Yes -Correct Procedure Yes Yes Yes -Procedure Performed Yes Yes Yes -Type of Procedure Debridement Debridement Debridement -Clinical Debridement Subcutaneous Subcutaneous Subcutaneous -Tissue Removed Subcutaneous Subcutaneous Subcutaneous -Post Debridement (cm) - Length 9.2 8.8 8.9 -Post Debridement (cm) - Width 12.5 14.0 13.8 -Post Debridement (cm) - Depth 0.2 0.1 0.1 -Total Square (Post) (cm) 115.00 123.20 122.82 -Area of Debridement (cm) - Length 9.2 8.8 8.9 -Area of Debridement (cm) - Width 12.5 14.0 13.8 -Total Square (Area) (cm) 115.00 123.20 122.82 -Tunneling No No No -Undermining/Tunneling No No No -Circular Undermining No No No -Wound/Ulcer Outcome Not Healed Not Healed Not Healed -Ulcer Cleansing Rinsed/ Rinsed/ Rinsed/ Irrigated with Irrigated with Irrigated with Saline Saline Saline -Foul Odor after Cleansing No No No -Bioengineered Tissue No No No -Bleeding Controlled with Pressure Pressure Pressure -Treatment Response Procedure Procedure Procedure Tolerated Well Tolerated Well Tolerated Well -Offloading No No -Debridement - Subq, 1st 20sq cm Yes Yes Yes -Debridement, SubQ, ea addt'l 20sq cm 12 22 or part thereof -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) Pain Scale: 0-10 Numeric Is Patient Pain Free? Yes Yes Yes ble -Description -Intensity -Duration (hours) -Pain Behavior -Pain Aggravating Factors -Alleviating Factors/Interventions -Comments 01/04/25 12:31 Wound Center Nurse 2 #23 R Lat Leg -Time -Correct Patient -Correct Side, Site, Position -Correct Procedure -Procedure Performed -Type of Procedure -Clinical Debridement -Tissue Removed -Tunneling -Undermining/Tunneling -Circular Undermining -Wound/Ulcer Outcome -Ulcer Cleansing -Foul Odor after Cleansing -Bioengineered Tissue -Bleeding Controlled with -Treatment Response -Debridement - Subq, 1st 20sq cm #24 Left Lateral Leg -Time 12:31 -Correct Patient Yes -Correct Side, Site, Position Yes -Correct Procedure Yes -Procedure Performed Yes -Type of Procedure Debridement -Clinical Debridement Subcutaneous -Tissue Removed Subcutaneous -Post Debridement (cm) - Length 2.8 -Post Debridement (cm) - Width 2.3 -Post Debridement (cm) - Depth 0.1 -Total Square (Post) (cm) 6.44 -Area of Debridement (cm) - Length 2.8 -Area of Debridement (cm) - Width 2.3 -Total Square (Area) (cm) 6.44 -Tunneling No -Undermining/Tunneling No -Circular Undermining No -Wound/Ulcer Outcome Not Healed -Ulcer Cleansing -Foul Odor after Cleansing -Bioengineered Tissue -Bleeding Controlled with Pressure -Treatment Response Procedure Tolerated Well -Offloading -Debridement - Subq, 1st 20sq cm Yes -Debridement, SubQ, ea addt'l 20sq cm 20 or part thereof -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) Misonix used. *#22 R Medial Leg circumferential -Time 12:32 -Correct Patient Yes -Correct Side, Site, Position Yes -Correct Procedure Yes -Procedure Performed Yes -Type of Procedure Debridement -Clinical Debridement Subcutaneous -Tissue Removed Subcutaneous -Post Debridement (cm) - Length 11.8 -Post Debridement (cm) - Width 25.5 -Post Debridement (cm) - Depth 0.1 -Total Square (Post) (cm) 300.90 -Area of Debridement (cm) - Length 11.8 -Area of Debridement (cm) - Width 25.5 -Total Square (Area) (cm) 300.90 -Tunneling No -Undermining/Tunneling No -Circular Undermining No -Wound/Ulcer Outcome Not Healed -Ulcer Cleansing -Foul Odor after Cleansing -Bioengineered Tissue -Bleeding Controlled with Pressure -Treatment Response Procedure Tolerated Well -Offloading -Debridement - Subq, 1st 20sq cm No -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) Misonix used #18 Left medial LE cluster -Time 12:32 -Correct Patient Yes -Correct Side, Site, Position Yes -Correct Procedure Yes -Procedure Performed Yes -Type of Procedure Debridement -Clinical Debridement Subcutaneous -Tissue Removed Subcutaneous -Post Debridement (cm) - Length 8.8 -Post Debridement (cm) - Width 12.8 -Post Debridement (cm) - Depth 0.1 -Total Square (Post) (cm) 112.64 -Area of Debridement (cm) - Length 8.8 -Area of Debridement (cm) - Width 12.8 -Total Square (Area) (cm) 112.64 -Tunneling No -Undermining/Tunneling No -Circular Undermining No -Wound/Ulcer Outcome Not Healed -Ulcer Cleansing Rinsed/ Irrigated with Saline -Foul Odor after Cleansing No -Bioengineered Tissue No -Bleeding Controlled with Pressure -Treatment Response Procedure Tolerated Well -Offloading -Debridement - Subq, 1st 20sq cm No -Debridement, SubQ, ea addt'l 20sq cm or part thereof -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) Misonix used Pain Scale: 0-10 Numeric Is Patient Pain Free? No ble -Description Aching -Intensity 5 -Duration (hours) Chronic -Pain Behavior No Change in Behavior -Pain Aggravating Factors Debridement -Alleviating Factors/Interventions Will continue to monitor, Emotional Support -Comments pain ease and Misonix used WC - Nurse 3 - General Ulcer D/C NN Start: 12/14/24 09:45 Freq: Status: Active Protocol: Activity Type Activity Date Activity User E-sign Co-sign Detail Recorded Client Recorded Date Recorded By Document 12/14/24 11:51 RB [id number] 12/14/24 11:54 RB Document 12/21/24 11:33 RB [id number] 12/21/24 11:34 RB Edit Result 12/21/24 11:33 RB (1) [id number] 12/21/24 11:49 RB Edit Result 12/21/24 11:33 RB (2) [id number] 12/21/24 13:06 RB Document 12/28/24 10:55 KW [id number] 12/28/24 10:57 KW Document 01/04/25 13:05 KW [id number] 01/04/25 13:09 KW (1) *#22 R Medial Leg circumferential - Primary Dressing Applied Aquacel Extra, => Aquacel Extra, Optilok 6.5x10 => Optilok 5x5 1/2, => Optilok 6.5x10 - Optilok 5x5 1/2 => 1 #18 Left medial LE cluster - Optilok 6.5x10 => 1 (2) #24 Left Lateral Leg - 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) => 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 #18 Left medial LE cluster - Optilok 5x5 1/2 => 0 12/14/24 12/21/24 12/28/24 11:51 11:33 10:55 Wound Care Center Nurse 3 #24 Left Lateral Leg -Ulcer Cleansing Rinsed/ Irrigated with Saline -Primary Dressing Applied Aquacel Extra, Aquacel AG 4x4 Optilok 6.5x10 -Other Dressing dakins moistened gauze / 2 ABD -Primary Dressing Covered/Secured with Dry Gauze & Dry Gauze & Roll Gauze Roll Gauze, Secured with Tape -Aquacel Extra 1 -Aquacel AG 4x4 1 -Optilok 6.5x10 1 -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) [employer]JA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 *#22 R Medial Leg circumferential -Ulcer Cleansing Rinsed/ Irrigated with Saline -Primary Dressing Applied Aquacel Extra, Aquacel Extra, Optilok 5x5 1/2 Aquacel AG 4x4, ,Optilok 6.5x10 Optilok 5x5 1/2 ,Optilok 6.5x10 -Other Dressing dakins moistened gauze /ABD -Primary Dressing Covered/Secured with Dry Gauze & Dry Gauze & Roll Gauze Roll Gauze, Secured with Tape -Aquacel Extra 1 1 -Aquacel AG 4x4 1 -Optilok 5x5 1/2 1 1 -Optilok 6.5x10 1 1 #18 Left medial LE cluster -Ulcer Cleansing Rinsed/ Irrigated with Saline -Primary Dressing Applied Hysept Aquacel Extra -Other Dressing dakins aquacel ag moistened gauze / ABD/ kerlix -Primary Dressing Covered/Secured with Dry Gauze & Dry Gauze Roll Gauze, Secured with Tape -Aquacel Extra 1 -Hysept 1 -Optilok 5x5 1/2 0 -Optilok 6.5x10 1 BLE -Multi-Layered Wrap Application Multi-Layer Multi-Layer Comp - Bilat ($ Comp - Bilat ($ ) ) -Other kishore bilat -Multi-Layer Compression Bilat (Qty 4 1 applied) Treatment Response Procedure Procedure Tolerated Well Tolerated Well Pain Scale: 0-10 Numeric Is Patient Pain Free? No Yes Yes LLE -Description Sharp,Burning -Intensity 7 -Duration (hours) Acute -Pain Behavior Withdrawal from Touch -Pain Aggravating Factors Exercise/ Activity, Debridement -Alleviating Factors/Interventions None -Effectiveness of Alleviating Factor/ Moderately Intervention effective WC - Visit Discharge Discharge Condition Stable Stable Stable Ambulatory Status Ambulatory, Ambulatory, Walker Walker Walker Transportation Private Auto [facility] transport Medication Reconcilliation completed & No No No provided to patient/care provider Clinical Summary of Care Provided Yes Yes Yes 01/04/25 13:05 Wound Care Center Nurse 3 #24 Left Lateral Leg -Ulcer Cleansing -Primary Dressing Applied -Other Dressing -Primary Dressing Covered/Secured with Dry Gauze & Roll Gauze, Secured with Tape -Aquacel Extra -Aquacel AG 4x4 -Optilok 6.5x10 -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) *#22 R Medial Leg circumferential -Ulcer Cleansing -Primary Dressing Applied -Other Dressing -Primary Dressing Covered/Secured with Dry Gauze & Roll Gauze, Secured with Tape -Aquacel Extra -Aquacel AG 4x4 -Optilok 5x5 1/2 -Optilok 6.5x10 #18 Left medial LE cluster -Ulcer Cleansing -Primary Dressing Applied Optilok 6.5x10 -Other Dressing -Primary Dressing Covered/Secured with -Aquacel Extra -Hysept -Optilok 5x5 1/2 -Optilok 6.5x10 1 BLE -Multi-Layered Wrap Application -Other pt own circaides -Multi-Layer Compression Bilat (Qty applied) Treatment Response Pain Scale: 0-10 Numeric Is Patient Pain Free? Yes LLE -Description -Intensity -Duration (hours) -Pain Behavior -Pain Aggravating Factors -Alleviating Factors/Interventions -Effectiveness of Alleviating Factor/ Intervention WC - Visit Discharge Discharge Condition Ambulatory Status Transportation Medication Reconcilliation completed & provided to patient/care provider Clinical Summary of Care Provided Additional Wound Wound debrided: right lateral leg Laterality: Right Type of Debridement: Excisional debridement Anesthesia Used: 5% Lidocaine Gel and Cetacaine Depth: Down to and including healthy tissue and in the subcutaneous layer Percentage of wound debrided: 100 Instrument Used: - (Misonix ultrasonic debridement) Tissue Removed: Yellow slough, devitalized tissue Severity: Fat Layer Exposed Amount of bleeding with debridement: Mild Bleeding Controlled with: Compression and gauze Patient tolerated procedure: Patient tolerated procedure well Additional Wound Wound debrided: right medial leg Laterality: Right Type of Debridement: Excisional debridement Anesthesia Used: 5% Lidocaine Gel and Cetacaine Depth: Down to and including healthy tissue and in the subcutaneous layer Percentage of wound debrided: 100 Instrument Used: - (Misonix ultrasonic debridement) Tissue Removed: Yellow slough, devitalized tissue Severity: Fat Layer Exposed Amount of bleeding with debridement: Mild Bleeding Controlled with: Compression and gauze Patient tolerated procedure: Patient tolerated procedure well Assessment/Plan Assessment/Plan (1) Lymphedema: CODE(S): I89.0 - Lymphedema, not elsewhere classified (2) Hypertension: CODE(S): I10 - Essential (primary) hypertension QUALIFIERS: Hypertension type: primary hypertension Qualified Code(s): I10 - Essential (primary) hypertension (3) Hyperlipidemia: CODE(S): E78.5 - Hyperlipidemia, unspecified QUALIFIERS: Hyperlipidemia type: mixed hyperlipidemia Qualified Code(s): E78.2 - Mixed hyperlipidemia (4) History of DVT (deep vein thrombosis): CODE(S): Z86.718 - Personal history of other venous thrombosis and embolism (5) Venous insufficiency (chronic) (peripheral): CODE(S): I87.2 - Venous insufficiency (chronic) (peripheral) (6) Venous ulcer of left lower extremity with varicose veins: CODE(S): I83.029 - Varicose veins of left lower extremity with ulcer of unspecified site (7) Edema: CODE(S): R60.9 - Edema, unspecified QUALIFIERS: Edema type: unspecified Qualified Code(s): R60.9 - Edema, unspecified (8) 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 At home wound-care instructions: Will try using Circaid compression garments with super absorber to right LE and ABD to left LE changed every other day. Due to his chronic lymphedema and being unable to don traditional compression stockings and the presence of venous ulcers on his LE b/l, it is medically necessary for him to have Circaid compression garments. These are being ordered.I suspect he is not very compliant with his lymphedema pumps and not getting adequate compression with tubigrips. Due to the delayed progress in wound healing of his venous ulcers, we discussed applying for advanced wound healing product for healing his ulcer. Due to the size of his ulcer, Theraskin application approval was requested from his insurance as it is medically necessary for salvaging his limb and healing his ulcer. He underwent 2 applications of Theraskin to this ulcer. Since applicationof Theraskin he has had much improvement in epithelialization of his ulcer even though the overall size is not significantly changed there is progress. Off-loading: The patient was instructed to avoid pressure and friction on the affected areas. Reposition every 2 hours at minimum. Avoid prolonged standing and/or dangling of legs. When seated, feet should be elevated at chest level. Frequent ambulation is encouraged. Encouraged lymphedema pump use. Diet: Patient encouraged to increase protein intake while taking caution to avoid high carbohydrate and/or sugar intake. Labs/cultures/imaging: Wound culture showed Pseudomonas, Escherichia hermannii, Raoultella planticola, Vancomycin Resist. E. faecalis, Alcaligenes faecalis ssp faeca, Staphylococcus cohnii urealyti and anaerobic bacteria on 06/15/24 and he completed on Levofloxacin and Augmentin. Wound culture taken today on right lateral ulcer which showed Raoultella planticola, Staph hemolyticus, staph epidermidis and morganella morganii but no anaeroobic bacteria, Levofloxacin anddoxycyline were prescribed based on culture results. Labs ordered 10/19/2024. Vitamin D was low A1C 5.4% Wound culture from 12/07/24 was positive for Providencia stuartii, Vancomycin resistant E. Faecalis, Corynebacterium striatum and completed Augmentin orally. Follow-up: Return in 1 week for wound care follow up and have dressing changed by home health Tuesday. Return sooner or report to the emergency room should symptoms worsen, or new symptoms arise. Note: [employer] speech recognition hair tinter software was used to create portions of this document. Sound-alike and misspelled words, as well as other hair tinter errors may be contained in the documentation. 01/04/25 1435 <Electronically signed by Patricia Garcia DO> Cosigner Signature (if applicable): CC: ~ Signed [facility] Work Phone: [phone] Progress note [facility] [address] [place] [address] Progress Note - Wound Care 01/04/25 1426 MR#: [id number] Acct: [id number] Name: ESTEBAN URBINA Rep #:[id number] : 1955 69 From: Patricia Garcia DO PCP: Dr. Patricia Garcia, DO Status:REG RCR Location: History of Present Illness Date of Service: 01/04/25 Chief Complaint: venous ulcers of left lower extremity History of Wound: Mauricio is a 69 yo gentleman who is here today for evaluation of ulcers to to his bilateral lower legs. [facility]. The left LE ulcer started after he developed increased swelling and blisters of left leg in Octoberand the right leg started sometime at the end of October. He was seen at PCP's office a culture was taken and it was resistant to several antibiotics. He wastreated initially with Levaquin but had myalgias and then was treated with doxycycline which he finished 2 days ago. He denies improvementand is having swelling to his left calf and thigh. He has been having swelling to both lower extremities for many years and it has worsened over the last few chirag hs. He has not been compliant with compression. He has had increased pain especially in the left leg. He has clear yellow drainage and redness without odor or warmth. He is anti- coagulated on coumadin. He has been washing with Dial soap and witch ifrah. He had been using Collagen at times and using Calcium Alginate and covering with ABD pads during October. He was treated with 3M compression and Aquacel Ag. He was referred to the wound center for ongoing treatment. His ulcers have moderate to heavy drainage. He was in the hospital from 11/30/22 until 12/09/22 for treatment of cellulitis andedema. He underwenttreatment with Vancomycin and IV lasix and compression. Discharged on 12/09/22. He returned to his assisted living apartment on Tuesday12/21/22. Subjective Subjective Mauricio is a 69-year-old male with longstanding history of chronic venous ulcerationto the left lower extremity and now a right lower extremity venous ulcer that isnearly circumferential. Wound culture from 12/07/24 was positive for Providencia stuartii, Vancomycin resistant E. Faecalis, Corynebacteriumstriatum and completed Augmentin orally. His edema is better this week and he tolerated the 3M wraps. His ulcers are generally the same this week. He is using KISHORE wraps forcompression. 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 He continues to use his lymphedema pumps but continues to have pain with use of these pumps. 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 Objective Data Objective Data Vital Signs: Vital Signs Temp Pulse Resp BP O2 Del Method 96.3 F L 67 18 148/84 H Room Air 01/04/25 11:43 01/04/25 11:43 01/04/25 11:43 01/04/25 11:43 01/04/25 11:43 Oxygen Delivery Method Room Air Physical Exam Const alert, oriented x3 and no apparent distress General Appearance: cooperative and comfortable HEENT normocephalic and head/scalp atraumatic Lymph Lymphatic: lymphedema moderate Resp normal respiratory effort Effort and Inspection: able to speak in complete sentences Cardio regular rate and regular rhythm Extremity Extremity Narrative: His ulcers are painful and larger and the right lower leg remains more swollen than his left General Extremity: edema bilateral lower extremity Details: severe Skin General Skin Exam: venous stasis and dermatitis Wounds: wounds noted Wound Narrative: as in clinical panel, + devitalized tissue, there is increased depth, + granulation tissue bilateral ulcer with good granulation and moderate to heavy slough prior to debridement and minimalpost debridement Psych mental status grossly normal, thought process normal, cooperative and affect normal Debridement Note Debridement Note Wound debrided: left medial LE ulcer Laterality: Left Type of Debridement: Excisional debridement Anesthesia Used: 5% Lidocaine Gel and Cetacaine Depth: Down to and including healthy tissue and in the subcutaneous layer Percentage of wound debrided: 100 Instrument Used: - (Misonix ultrasonic debridement) Tissue Removed: Yellow slough, devitalized tissue Severity: Fat Layer Exposed Amount of bleeding with debridement: Mild Bleeding Controlled with: Compression and gauze Patient tolerated procedure: Patient tolerated procedure well Post-Debridement Measurements and Additional Note: Post-Debridement Measurements/Treatment WC - Nurse 1 - General Ulcer Assessment Start: 12/14/24 09:45 Freq: Status: Active Protocol: ONDINA Activity Type Activity Date Activity User E-sign Co-sign Detail Recorded Client Recorded Date Recorded By Document 12/14/24 09:45 RB [id number] 12/14/24 10:11 RB Document 12/21/24 10:17 KW [id number] 12/21/24 10:26 KW Document 12/28/24 09:24 KW [id number] 12/28/24 09:35 KW Document 01/04/25 11:43 KW [id number] 01/04/25 11:51 KW 12/14/24 12/21/24 12/28/24 09:45 10:17 09:24 - Today's Visit Information Type of service Follow-up Visit Follow-up Visit Follow-up Visit (Physician/APPLICATIONS SPECIALIST (Physician/APPLICATIONS SPECIALIST (Physician/APPLICATIONS SPECIALIST ) ) ) Arrival Mode Ambulatory, Ambulatory, Ambulatory, Walker Walker Walker Transfer Assistance None Patient Identification Verified (Name & Yes Yes Yes ) Patient Requires Transmission-Based No Precautions Vital Signs Temperature (97.8 F-99.1 F) 95.5 F L 96.5 F L 97.2 F L Temperature Source Temporal Temporal Temporal Pulse Rate (60-100) 74 84 75 Pulse Location Monitor Monitor Monitor Respiratory Rate (12-18) 18 16 16 Respiratory rate source Observation Observation Observation Oxygen Delivery Method Room Air Room Air Blood Pressure (90/60-120/80) 126/70 H 132/61 H 179/75 H Blood Pressure Mean (mm Hg) 88 84 109 Source Monitor Monitor Monitor Position Semi-Fowlers Semi-Fowlers Semi-Fowlers Blood Pressure Location Right Arm Left Arm Left Arm History Since Last Visit- (Skip if this is Patient's initial visit) Have you changed medications since your Yes No No last visit? Any new allergies or adverse reactions No No No Had a fall/change in ADL's that may No No No increase risk of falls Signs or symptoms of abuse and/or No No No neglect since last visit Have you been in the hospital since your Yes No No last visit? Has dressing in place as prescribed Yes Yes Yes Has compression in place as prescribed Yes Yes Yes Has offloadiing in place as prescribed No N/A N/A Experienced any changes in pain level or No No No management Left Footwear Regular Shoe Regular Shoe Regular Shoe Right Footwear Regular Shoe Regular Shoe Regular Shoe Pain Scale: 0-10 Numeric Is Patient Pain Free? Yes Yes Yes LLE -Description Sharp,Burning -Intensity 7 -Duration (hours) Acute -Pain Behavior Withdrawal from Touch -Pain Aggravating Factors ADL's,Exercise/ Activity, Debridement -Alleviating Factors/Interventions Medication -Effectiveness of Alleviating Factor/ Moderately Intervention effective 01/04/25 11:43 - Today's Visit Information Type of service Follow-up Visit (Physician/APPLICATIONS SPECIALIST ) Arrival Mode Ambulatory, Walker Transfer Assistance Patient Identification Verified (Name & Yes ) Patient Requires Transmission-Based Precautions Vital Signs Temperature (97.8 F-99.1 F) 96.3 F L Temperature Source Temporal Pulse Rate (60-100) 67 Pulse Location Monitor Respiratory Rate (12-18) 18 Respiratory rate source Observation Oxygen Delivery Method Room Air Blood Pressure (90/60-120/80) 148/84 H Blood Pressure Mean (mm Hg) 105 Source Monitor Position Semi-Fowlers Blood Pressure Location Left Arm History Since Last Visit- (Skip if this is Patient's initial visit) Have you changed medications since your No last visit? Any new allergies or adverse reactions No Had a fall/change in ADL's that may No increase risk of falls Signs or symptoms of abuse and/or No neglect since last visit Have you been in the hospital since your No last visit? Has dressing in place as prescribed Yes Has compression in place as prescribed No Has offloadiing in place as prescribed N/A Experienced any changes in pain level or No management Left Footwear Regular Shoe Right Footwear Regular Shoe Pain Scale: 0-10 Numeric Is Patient Pain Free? Yes LLE -Description -Intensity -Duration (hours) -Pain Behavior -Pain Aggravating Factors -Alleviating Factors/Interventions -Effectiveness of Alleviating Factor/ Intervention WC - Nurse 1 - General Ulcer Measurement Start: 12/14/24 09:45 Freq: Status: Active Protocol: Activity Type Activity Date Activity User E-sign Co-sign Detail Recorded Client Recorded Date Recorded By Document 12/14/24 09:45 RB [id number] 12/14/24 10:11 RB Document 12/21/24 10:17 KW [id number] 12/21/24 10:26 KW Document 12/28/24 09:24 KW [id number] 12/28/24 09:35 KW Document 01/04/25 11:43 KW [id number] 01/04/25 11:51 KW 12/14/24 12/21/24 12/28/24 09:45 10:17 09:24 Wound Center Nurse 1 #23 R Lat Leg -Combined with other wound No -Current Size (cm) - Length 10.5 -Current Size (cm) - Width 10.5 -Current Size (cm) - Depth 0.2 -Total Square Cm 110.25 -Photo Taken Yes -Tunneling No -Undermining/Tunneling No -Circular Undermining No -Exudate Amt Medium -Exudate Type Serosanguineous -Wound Margin Distinct, Outline Attached -Granulation Amt Medium (34-66%) -Granulation Quality Lingle -Slough/Fibrin Yes -Necrosis Amt Small (1-33%) -Necrotic Tissue Type Adherent Slough -Structure Exposed N/A -Texture (Marie-wound Skin Appearance) Assessed, Scarring -Moisture (Marie-wound Skin Appearance) Assessed -Color (Marie-wound Skin Appearance) Assessed -Temperature (Marie-wound Skin No Abnormality Appearance) (Pt Warm) -Tenderness on Palpation (Marie-wound No Skin Appearance) -Ulcer Cleansing Wound Cleanser -Foul Odor after Cleansing No -Anesthetic Used 5% Lidocaine Gel #24 Left Lateral Leg -Combined with other wound No -Current Size (cm) - Length 10.5 3 3.4 -Current Size (cm) - Width 10.5 2.8 2.4 -Current Size (cm) - Depth 0.2 0.1 0.2 -Total Square Cm 110.25 8.4 8.16 -Date of Last Picture (Recall this 12/21/24 field) -Photo Taken Yes -Tunneling No -Undermining/Tunneling No -Circular Undermining No -Exudate Amt Medium Medium Medium -Exudate Type Serosanguineous Serosanguineous Serosanguineous -Wound Margin Distinct, Distinct, Distinct, Outline Outline Outline Attached Attached Attached -Granulation Amt Medium (34-66%) Medium (34-66%) Small (1-33%) -Granulation Quality Lingle Lingle Lingle,Red -Slough/Fibrin Yes -Necrosis Amt Medium (34-66%) Large (67-100%) Large (67-100%) -Necrotic Tissue Type Adherent Slough Adherent Slough Adherent Slough -Structure Exposed N/A -Texture (Marie-wound Skin Appearance) Assessed, Assessed Assessed Scarring -Moisture (Marie-wound Skin Appearance) Assessed Assessed Assessed,Dry/ Scaly -Color (Marie-wound Skin Appearance) Assessed Assessed, Assessed, Erythema, Hemosiderin Hemosiderin Staining Staining -Temperature (Marie-wound Skin No Abnormality No Abnormality No Abnormality Appearance) (Pt Warm) (Pt Warm) (Pt Warm) -Tenderness on Palpation (Marie-wound No No No Skin Appearance) -Ulcer Cleansing Wound Cleanser Rinsed/ Soap and Water Irrigated with Saline -Foul Odor after Cleansing No No -Anesthetic Used 5% Lidocaine 5% Lidocaine 5% Lidocaine Gel Gel Gel *#22 R Medial Leg circumferential -Combined with other wound No -Current Size (cm) - Length 14.5 12 12.2 -Current Size (cm) - Width 14.5 37.4 32.5 -Current Size (cm) - Depth 0.2 0.2 0.2 -Total Square Cm 210.25 448.8 396.50 -Date of Last Picture (Recall this 12/21/24 field) -Photo Taken Yes -Tunneling No -Undermining/Tunneling No -Circular Undermining No -Exudate Amt Medium Large Medium -Exudate Type Serosanguineous Serosanguineous Serosanguineous -Wound Margin Thickened & Distinct, Distinct, Rolled Under Outline Outline Attached Attached -Granulation Amt Medium (34-66%) Small (1-33%) Small (1-33%) -Granulation Quality Lingle Lingle Red -Slough/Fibrin Yes -Necrosis Amt Medium (34-66%) Large (67-100%) Large (67-100%) -Necrotic Tissue Type Adherent Slough Adherent Slough Adherent Slough -Structure Exposed N/A -Texture (Marie-wound Skin Appearance) Assessed, Assessed Assessed Scarring -Moisture (Marie-wound Skin Appearance) Assessed Assessed Assessed,Dry/ Scaly -Color (Marie-wound Skin Appearance) Assessed Assessed, Assessed, Erythema, Hemosiderin Hemosiderin Staining Staining -Temperature (Marie-wound Skin No Abnormality No Abnormality No Abnormality Appearance) (Pt Warm) (Pt Warm) (Pt Warm) -Tenderness on Palpation (Marie-wound No No No Skin Appearance) -Ulcer Cleansing Wound Cleanser Soap and Water -Foul Odor after Cleansing No No No -Anesthetic Used 5% Lidocaine 5% Lidocaine 5% Lidocaine Gel Gel Gel #18 Left medial LE cluster -Combined with other wound No -Current Size (cm) - Length 9 8.8 8.4 -Current Size (cm) - Width 15 15.5 15.3 -Current Size (cm) - Depth 0.2 0.3 0.2 -Total Square Cm 135 136.40 128.52 -Date of Last Picture (Recall this 12/21/24 12/28/24 field) -Photo Taken Yes -Tunneling No -Undermining/Tunneling No -Circular Undermining No -Exudate Amt Medium Medium Small -Exudate Type Serosanguineous Serosanguineous Serosanguineous -Wound Margin Distinct, Distinct, Distinct, Outline Outline Outline Attached Attached Attached -Granulation Amt Medium (34-66%) Small (1-33%) Small (1-33%) -Granulation Quality Lingle Lingle Red -Slough/Fibrin Yes -Necrosis Amt Medium (34-66%) Large (67-100%) Large (67-100%) -Necrotic Tissue Type Adherent Slough Adherent Slough Adherent Slough -Structure Exposed N/A -Texture (Marie-wound Skin Appearance) Scarring Assessed Assessed -Moisture (Marie-wound Skin Appearance) Assessed Assessed Assessed,Dry/ Scaly -Color (Marie-wound Skin Appearance) Assessed Assessed, Assessed, Erythema, Hemosiderin Hemosiderin Staining Staining -Temperature (Marie-wound Skin No Abnormality No Abnormality No Abnormality Appearance) (Pt Warm) (Pt Warm) (Pt Warm) -Tenderness on Palpation (Marie-wound No No No Skin Appearance) -Ulcer Cleansing Wound Cleanser Soap and Water -Foul Odor after Cleansing No No No -Anesthetic Used 5% Lidocaine 5% Lidocaine 5% Lidocaine Gel Gel Gel Lower Limb Edema Present Yes Right Calf (cm) 52.2 53.5 49.2 Right Ankle (cm) 29.2 30.2 30.5 Left Calf (cm) 47.5 47.0 45.4 Left Ankle (cm) 29.4 30.5 29.7 01/04/25 11:43 Wound Center Nurse 1 #23 R Lat Leg -Combined with other wound -Current Size (cm) - Length -Current Size (cm) - Width -Current Size (cm) - Depth -Total Square Cm -Photo Taken -Tunneling -Undermining/Tunneling -Circular Undermining -Exudate Amt -Exudate Type -Wound Margin -Granulation Amt -Granulation Quality -Slough/Fibrin -Necrosis Amt -Necrotic Tissue Type -Structure Exposed -Texture (Marie-wound Skin Appearance) -Moisture (Marie-wound Skin Appearance) -Color (Marie-wound Skin Appearance) -Temperature (Marie-wound Skin Appearance) -Tenderness on Palpation (Marie-wound Skin Appearance) -Ulcer Cleansing -Foul Odor after Cleansing -Anesthetic Used #24 Left Lateral Leg -Combined with other wound -Current Size (cm) - Length 2.7 -Current Size (cm) - Width 1.9 -Current Size (cm) - Depth 0.1 -Total Square Cm 5.13 -Date of Last Picture (Recall this 01/04/25 field) -Photo Taken -Tunneling -Undermining/Tunneling -Circular Undermining -Exudate Amt -Exudate Type -Wound Margin -Granulation Amt -Granulation Quality -Slough/Fibrin -Necrosis Amt -Necrotic Tissue Type -Structure Exposed -Texture (Marie-wound Skin Appearance) -Moisture (Marie-wound Skin Appearance) -Color (Marie-wound Skin Appearance) -Temperature (Marie-wound Skin Appearance) -Tenderness on Palpation (Marie-wound Skin Appearance) -Ulcer Cleansing -Foul Odor after Cleansing -Anesthetic Used *#22 R Medial Leg circumferential -Combined with other wound -Current Size (cm) - Length 11.5 -Current Size (cm) - Width 33 -Current Size (cm) - Depth 0.2 -Total Square Cm 379.5 -Date of Last Picture (Recall this 01/04/25 field) -Photo Taken -Tunneling -Undermining/Tunneling -Circular Undermining -Exudate Amt Medium -Exudate Type Serosanguineous -Wound Margin Distinct, Outline Attached -Granulation Amt Large (67-100%) -Granulation Quality Red -Slough/Fibrin -Necrosis Amt Medium (34-66%) -Necrotic Tissue Type Adherent Slough -Structure Exposed -Texture (Marie-wound Skin Appearance) Assessed -Moisture (Marie-wound Skin Appearance) Assessed -Color (Marie-wound Skin Appearance) Assessed, Erythema, Hemosiderin Staining -Temperature (Marie-wound Skin No Abnormality Appearance) (Pt Warm) -Tenderness on Palpation (Marie-wound No Skin Appearance) -Ulcer Cleansing Soap and Water -Foul Odor after Cleansing -Anesthetic Used 5% Lidocaine Gel #18 Left medial LE cluster -Combined with other wound -Current Size (cm) - Length 8.5 -Current Size (cm) - Width 15 -Current Size (cm) - Depth 0.3 -Total Square Cm 127.5 -Date of Last Picture (Recall this 01/04/25 field) -Photo Taken -Tunneling -Undermining/Tunneling -Circular Undermining -Exudate Amt Medium -Exudate Type Serosanguineous -Wound Margin Distinct, Outline Attached -Granulation Amt Medium (34-66%) -Granulation Quality Red -Slough/Fibrin -Necrosis Amt Large (67-100%) -Necrotic Tissue Type Adherent Slough -Structure Exposed -Texture (Marie-wound Skin Appearance) Assessed -Moisture (Marie-wound Skin Appearance) Assessed -Color (Marie-wound Skin Appearance) Assessed, Erythema, Hemosiderin Staining -Temperature (Marie-wound Skin No Abnormality Appearance) (Pt Warm) -Tenderness on Palpation (Marie-wound No Skin Appearance) -Ulcer Cleansing Soap and Water -Foul Odor after Cleansing No -Anesthetic Used 5% Lidocaine Gel Lower Limb Edema Present Right Calf (cm) 48 Right Ankle (cm) 28.5 Left Calf (cm) 41 Left Ankle (cm) 30 WC - Nurse 2 - General Ulcer CM Notes Start: 12/14/24 09:45 Freq: Status: Active Protocol: Activity Type Activity Date Activity User E-sign Co-sign Detail Recorded Client Recorded Date Recorded By Document 12/14/24 10:42 [id number] 12/14/24 11:03 GM Document 12/21/24 10:41 GM [id number] 12/21/24 11:10 GM Document 12/28/24 10:00 GM [id number] 12/28/24 10:24 GM Document 01/04/25 12:31 DS [id number] 01/04/25 12:39 DS Edit Result 01/04/25 12:31 DS (1) [id number] 01/04/25 13:02 DS (1) #24 Left Lateral Leg - Post Debridement (cm) - Length => 2.8 - Post Debridement (cm) - Width => 2.3 - Post Debridement (cm) - Depth => 0.1 - Total Square (Post) (cm) => 6.44 - Area of Debridement (cm) - Length => 2.8 - Area of Debridement (cm) - Width => 2.3 - Total Square (Area) (cm) => 6.44 - Debridement, SubQ, ea addt'l 20sq cm => 20 or part thereof *#22 R Medial Leg circumferential - Post Debridement (cm) - Length => 11.8 - Post Debridement (cm) - Width => 25.5 - Post Debridement (cm) - Depth => 0.1 - Total Square (Post) (cm) => 300.90 - Area of Debridement (cm) - Length => 11.8 - Area of Debridement (cm) - Width => 25.5 - Total Square (Area) (cm) => 300.90 #18 Left medial LE cluster - Post Debridement (cm) - Length => 8.8 - Post Debridement (cm) - Width => 12.8 - Post Debridement (cm) - Depth => 0.1 - Total Square (Post) (cm) => 112.64 - Area of Debridement (cm) - Length => 8.8 - Area of Debridement (cm) - Width => 12.8 - Total Square (Area) (cm) => 112.64 12/14/24 12/21/24 12/28/24 10:42 10:41 10:00 Wound Center Nurse 2 #23 R Lat Leg -Time 10:43 -Correct Patient Yes -Correct Side, Site, Position Yes -Correct Procedure Yes -Procedure Performed Yes -Type of Procedure Debridement -Clinical Debridement Subcutaneous -Tissue Removed Subcutaneous -Tunneling No -Undermining/Tunneling No -Circular Undermining No -Wound/Ulcer Outcome Not Healed -Ulcer Cleansing Rinsed/ Irrigated with Saline -Foul Odor after Cleansing No -Bioengineered Tissue No -Bleeding Controlled with Pressure -Treatment Response Procedure Tolerated Well -Debridement - Subq, 1st 20sq cm No #24 Left Lateral Leg -Time 10:42 10:41 10:05 -Correct Patient Yes Yes Yes -Correct Side, Site, Position Yes Yes Yes -Correct Procedure Yes Yes Yes -Procedure Performed Yes Yes Yes -Type of Procedure Debridement Debridement Debridement -Clinical Debridement Subcutaneous Subcutaneous Subcutaneous -Tissue Removed Subcutaneous Subcutaneous -Post Debridement (cm) - Length 3.1 3.1 3.2 -Post Debridement (cm) - Width 1.9 2.3 2.0 -Post Debridement (cm) - Depth 0.1 0.1 0.1 -Total Square (Post) (cm) 5.89 7.13 6.40 -Area of Debridement (cm) - Length 3.0 3.1 3.2 -Area of Debridement (cm) - Width 1.9 2.3 2.0 -Total Square (Area) (cm) 5.70 7.13 6.40 -Tunneling No No No -Undermining/Tunneling No No No -Circular Undermining No No No -Wound/Ulcer Outcome Not Healed Not Healed Not Healed -Ulcer Cleansing Rinsed/ Rinsed/ Rinsed/ Irrigated with Irrigated with Irrigated with Saline Saline Saline -Foul Odor after Cleansing No No No -Bioengineered Tissue No No No -Bleeding Controlled with Pressure Pressure Pressure -Treatment Response Procedure Procedure Procedure Tolerated Well Tolerated Well Tolerated Well -Offloading No No No -Debridement - Subq, 1st 20sq cm No No No -Debridement, SubQ, ea addt'l 20sq cm or part thereof -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) *#22 R Medial Leg circumferential -Time 10:43 10:42 10:06 -Correct Patient Yes Yes Yes -Correct Side, Site, Position Yes Yes Yes -Correct Procedure Yes Yes Yes -Procedure Performed Yes Yes Yes -Type of Procedure Debridement Debridement Debridement -Clinical Debridement Subcutaneous Subcutaneous Subcutaneous -Tissue Removed Subcutaneous Subcutaneous Subcutaneous -Post Debridement (cm) - Length 12.0 12.0 12.0 -Post Debridement (cm) - Width 26.0 27.0 26.5 -Post Debridement (cm) - Depth 0.1 0.2 0.1 -Total Square (Post) (cm) 312.00 324.00 318.00 -Area of Debridement (cm) - Length 12.0 12.0 12.0 -Area of Debridement (cm) - Width 26.0 27.0 26.5 -Total Square (Area) (cm) 312.00 324.00 318.00 -Tunneling No No No -Undermining/Tunneling No No No -Circular Undermining No No No -Wound/Ulcer Outcome Not Healed Not Healed Not Healed -Ulcer Cleansing Rinsed/ Rinsed/ Rinsed/ Irrigated with Irrigated with Irrigated with Saline Saline Saline -Foul Odor after Cleansing No No No -Bioengineered Tissue No No No -Bleeding Controlled with Pressure Pressure Pressure -Treatment Response Procedure Procedure Procedure Tolerated Well Tolerated Well Tolerated Well -Offloading No -Debridement - Subq, 1st 20sq cm No No No -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) #18 Left medial LE cluster -Time 10:43 10:43 10:06 -Correct Patient Yes Yes Yes -Correct Side, Site, Position Yes Yes Yes -Correct Procedure Yes Yes Yes -Procedure Performed Yes Yes Yes -Type of Procedure Debridement Debridement Debridement -Clinical Debridement Subcutaneous Subcutaneous Subcutaneous -Tissue Removed Subcutaneous Subcutaneous Subcutaneous -Post Debridement (cm) - Length 9.2 8.8 8.9 -Post Debridement (cm) - Width 12.5 14.0 13.8 -Post Debridement (cm) - Depth 0.2 0.1 0.1 -Total Square (Post) (cm) 115.00 123.20 122.82 -Area of Debridement (cm) - Length 9.2 8.8 8.9 -Area of Debridement (cm) - Width 12.5 14.0 13.8 -Total Square (Area) (cm) 115.00 123.20 122.82 -Tunneling No No No -Undermining/Tunneling No No No -Circular Undermining No No No -Wound/Ulcer Outcome Not Healed Not Healed Not Healed -Ulcer Cleansing Rinsed/ Rinsed/ Rinsed/ Irrigated with Irrigated with Irrigated with Saline Saline Saline -Foul Odor after Cleansing No No No -Bioengineered Tissue No No No -Bleeding Controlled with Pressure Pressure Pressure -Treatment Response Procedure Procedure Procedure Tolerated Well Tolerated Well Tolerated Well -Offloading No No -Debridement - Subq, 1st 20sq cm Yes Yes Yes -Debridement, SubQ, ea addt'l 20sq cm 09 30 22 or part thereof -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) Pain Scale: 0-10 Numeric Is Patient Pain Free? Yes Yes Yes ble -Description -Intensity -Duration (hours) -Pain Behavior -Pain Aggravating Factors -Alleviating Factors/Interventions -Comments 01/04/25 12:31 Wound Center Nurse 2 #23 R Lat Leg -Time -Correct Patient -Correct Side, Site, Position -Correct Procedure -Procedure Performed -Type of Procedure -Clinical Debridement -Tissue Removed -Tunneling -Undermining/Tunneling -Circular Undermining -Wound/Ulcer Outcome -Ulcer Cleansing -Foul Odor after Cleansing -Bioengineered Tissue -Bleeding Controlled with -Treatment Response -Debridement - Subq, 1st 20sq cm #24 Left Lateral Leg -Time 12:31 -Correct Patient Yes -Correct Side, Site, Position Yes -Correct Procedure Yes -Procedure Performed Yes -Type of Procedure Debridement -Clinical Debridement Subcutaneous -Tissue Removed Subcutaneous -Post Debridement (cm) - Length 2.8 -Post Debridement (cm) - Width 2.3 -Post Debridement (cm) - Depth 0.1 -Total Square (Post) (cm) 6.44 -Area of Debridement (cm) - Length 2.8 -Area of Debridement (cm) - Width 2.3 -Total Square (Area) (cm) 6.44 -Tunneling No -Undermining/Tunneling No -Circular Undermining No -Wound/Ulcer Outcome Not Healed -Ulcer Cleansing -Foul Odor after Cleansing -Bioengineered Tissue -Bleeding Controlled with Pressure -Treatment Response Procedure Tolerated Well -Offloading -Debridement - Subq, 1st 20sq cm Yes -Debridement, SubQ, ea addt'l 20sq cm 20 or part thereof -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) Misonix used. *#22 R Medial Leg circumferential -Time 12:32 -Correct Patient Yes -Correct Side, Site, Position Yes -Correct Procedure Yes -Procedure Performed Yes -Type of Procedure Debridement -Clinical Debridement Subcutaneous -Tissue Removed Subcutaneous -Post Debridement (cm) - Length 11.8 -Post Debridement (cm) - Width 25.5 -Post Debridement (cm) - Depth 0.1 -Total Square (Post) (cm) 300.90 -Area of Debridement (cm) - Length 11.8 -Area of Debridement (cm) - Width 25.5 -Total Square (Area) (cm) 300.90 -Tunneling No -Undermining/Tunneling No -Circular Undermining No -Wound/Ulcer Outcome Not Healed -Ulcer Cleansing -Foul Odor after Cleansing -Bioengineered Tissue -Bleeding Controlled with Pressure -Treatment Response Procedure Tolerated Well -Offloading -Debridement - Subq, 1st 20sq cm No -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) Misonix used #18 Left medial LE cluster -Time 12:32 -Correct Patient Yes -Correct Side, Site, Position Yes -Correct Procedure Yes -Procedure Performed Yes -Type of Procedure Debridement -Clinical Debridement Subcutaneous -Tissue Removed Subcutaneous -Post Debridement (cm) - Length 8.8 -Post Debridement (cm) - Width 12.8 -Post Debridement (cm) - Depth 0.1 -Total Square (Post) (cm) 112.64 -Area of Debridement (cm) - Length 8.8 -Area of Debridement (cm) - Width 12.8 -Total Square (Area) (cm) 112.64 -Tunneling No -Undermining/Tunneling No -Circular Undermining No -Wound/Ulcer Outcome Not Healed -Ulcer Cleansing Rinsed/ Irrigated with Saline -Foul Odor after Cleansing No -Bioengineered Tissue No -Bleeding Controlled with Pressure -Treatment Response Procedure Tolerated Well -Offloading -Debridement - Subq, 1st 20sq cm No -Debridement, SubQ, ea addt'l 20sq cm or part thereof -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) Misonix used Pain Scale: 0-10 Numeric Is Patient Pain Free? No ble -Description Aching -Intensity 5 -Duration (hours) Chronic -Pain Behavior No Change in Behavior -Pain Aggravating Factors Debridement -Alleviating Factors/Interventions Will continue to monitor, Emotional Support -Comments pain ease and Misonix used WC - Nurse 3 - General Ulcer D/C NN Start: 12/14/24 09:45 Freq: Status: Active Protocol: Activity Type Activity Date Activity User E-sign Co-sign Detail Recorded Client Recorded Date Recorded By Document 12/14/24 11:51 RB [id number] 12/14/24 11:54 RB Document 12/21/24 11:33 RB [id number] 12/21/24 11:34 RB Edit Result 12/21/24 11:33 RB (1) [id number] 12/21/24 11:49 RB Edit Result 12/21/24 11:33 RB (2) [id number] 12/21/24 13:06 RB Document 12/28/24 10:55 KW [id number] 12/28/24 10:57 KW Document 01/04/25 13:05 KW [id number] 01/04/25 13:09 KW (1) *#22 R Medial Leg circumferential - Primary Dressing Applied Aquacel Extra, => Aquacel Extra, Optilok 6.5x10 => Optilok 5x5 1/2, => Optilok 6.5x10 - Optilok 5x5 1/2 => 1 #18 Left medial LE cluster - Optilok 6.5x10 => 1 (2) #24 Left Lateral Leg - 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) => 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 #18 Left medial LE cluster - Optilok 5x5 1/2 => 0 12/14/24 12/21/24 12/28/24 11:51 11:33 10:55 Wound Care Center Nurse 3 #24 Left Lateral Leg -Ulcer Cleansing Rinsed/ Irrigated with Saline -Primary Dressing Applied Aquacel Extra, Aquacel AG 4x4 Optilok 6.5x10 -Other Dressing dakins moistened gauze / 2 ABD -Primary Dressing Covered/Secured with Dry Gauze & Dry Gauze & Roll Gauze Roll Gauze, Secured with Tape -Aquacel Extra 1 -Aquacel AG 4x4 1 -Optilok 6.5x10 1 -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) MAMIEMARCELLA JIMBO 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 *#22 R Medial Leg circumferential -Ulcer Cleansing Rinsed/ Irrigated with Saline -Primary Dressing Applied Aquacel Extra, Aquacel Extra, Optilok 5x5 1/2 Aquacel AG 4x4, ,Optilok 6.5x10 Optilok 5x5 1/2 ,Optilok 6.5x10 -Other Dressing dakins moistened gauze /ABD -Primary Dressing Covered/Secured with Dry Gauze & Dry Gauze & Roll Gauze Roll Gauze, Secured with Tape -Aquacel Extra 1 1 -Aquacel AG 4x4 1 -Optilok 5x5 1/2 1 1 -Optilok 6.5x10 1 1 #18 Left medial LE cluster -Ulcer Cleansing Rinsed/ Irrigated with Saline -Primary Dressing Applied Hysept Aquacel Extra -Other Dressing dakins aquacel ag moistened gauze / ABD/ kerlix -Primary Dressing Covered/Secured with Dry Gauze & Dry Gauze Roll Gauze, Secured with Tape -Aquacel Extra 1 -Hysept 1 -Optilok 5x5 1/2 0 -Optilok 6.5x10 1 BLE -Multi-Layered Wrap Application Multi-Layer Multi-Layer Comp - Bilat ($ Comp - Bilat ($ ) ) -Other kishore bilat -Multi-Layer Compression Bilat (Qty 4 1 applied) Treatment Response Procedure Procedure Tolerated Well Tolerated Well Pain Scale: 0-10 Numeric Is Patient Pain Free? No Yes Yes LLE -Description Sharp,Burning -Intensity 7 -Duration (hours) Acute -Pain Behavior Withdrawal from Touch -Pain Aggravating Factors Exercise/ Activity, Debridement -Alleviating Factors/Interventions None -Effectiveness of Alleviating Factor/ Moderately Intervention effective WC - Visit Discharge Discharge Condition Stable Stable Stable Ambulatory Status Ambulatory, Ambulatory, Walker Walker Walker Transportation [facility] transport Medication Reconcilliation completed & No No No provided to patient/care provider Clinical Summary of Care Provided Yes Yes Yes 01/04/25 13:05 Wound Care Center Nurse 3 #24 Left Lateral Leg -Ulcer Cleansing -Primary Dressing Applied -Other Dressing -Primary Dressing Covered/Secured with Dry Gauze & Roll Gauze, Secured with Tape -Aquacel Extra -Aquacel AG 4x4 -Optilok 6.5x10 -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) *#22 R Medial Leg circumferential -Ulcer Cleansing -Primary Dressing Applied -Other Dressing -Primary Dressing Covered/Secured with Dry Gauze & Roll Gauze, Secured with Tape -Aquacel Extra -Aquacel AG 4x4 -Optilok 5x5 1/2 -Optilok 6.5x10 #18 Left medial LE cluster -Ulcer Cleansing -Primary Dressing Applied Optilok 6.5x10 -Other Dressing -Primary Dressing Covered/Secured with -Aquacel Extra -Hysept -Optilok 5x5 1/2 -Optilok 6.5x10 1 BLE -Multi-Layered Wrap Application -Other pt own circaides -Multi-Layer Compression Bilat (Qty applied) Treatment Response Pain Scale: 0-10 Numeric Is Patient Pain Free? Yes LLE -Description -Intensity -Duration (hours) -Pain Behavior -Pain Aggravating Factors -Alleviating Factors/Interventions -Effectiveness of Alleviating Factor/ Intervention WC - Visit Discharge Discharge Condition Ambulatory Status Transportation Medication Reconcilliation completed & provided to patient/care provider Clinical Summary of Care Provided Additional Wound Wound debrided: right lateral leg Laterality: Right Type of Debridement: Excisional debridement Anesthesia Used: 5% Lidocaine Gel and Cetacaine Depth: Down to and including healthy tissue and in the subcutaneous layer Percentage of wound debrided: 100 Instrument Used: - (Misonix ultrasonic debridement) Tissue Removed: Yellow slough, devitalized tissue Severity: Fat Layer Exposed Amount of bleeding with debridement: Mild Bleeding Controlled with: Compression and gauze Patient tolerated procedure: Patient tolerated procedure well Additional Wound Wound debrided: right medial leg Laterality: Right Type of Debridement: Excisional debridement Anesthesia Used: 5% Lidocaine Gel and Cetacaine Depth: Down to and including healthy tissue and in the subcutaneous layer Percentage of wound debrided: 100 Instrument Used: - (Misonix ultrasonic debridement) Tissue Removed: Yellow slough, devitalized tissue Severity: Fat Layer Exposed Amount of bleeding with debridement: Mild Bleeding Controlled with: Compression and gauze Patient tolerated procedure: Patient tolerated procedure well Assessmen (more content not included)...[facility]03-21-2025 Progress note Author Patricia Garcia [facility] Note Date/Time December 28, 2024 2:3 4pm [facility] [address] [place] [address] Progress Note - Wound Care 12/28/24 1426 MR#: [id number] Acct: [id number] Name: ESTEBAN URBINA Rep #:[id number] : 1955 69 From: Patricia Garcia DO PCP: Dr. Patricia Garcia, DO Status:REG RCR Location: History of Present Illness Date of Service: 12/28/24 Chief Complaint: venous ulcers of left lower extremity History of Wound: Mauricio is a 69 yo gentleman who is here today for evaluation of ulcers to to his bilateral lower legs. [facility]. The left LE ulcer started after he developed increased swelling and blisters of left leg in October and the right leg started sometime at the end of October. He was seen at PCP's office a culture was taken and it was resistant to several antibiotics. He was treated initially with Levaquin but had myalgias and then was treated with doxycycline which he finished 2 days ago. He denies improvementand is having swelling to his left calf and thigh. He has been having swelling to both lower extremities for many years and it has worsened over the last few months. He has not been compliant with compression. He has had increased pain especially in the left leg. He has clear yellow drainage and redness without odor or warmth. He is anti-coagulated on coumadin. He has been washing with Dial soap and witch ifrah. He had been using Collagen at times and using Calcium Alginate and covering with ABD pads during October. He was treated with 3M compression and Aquacel Ag. He was referred to the wound center for ongoing treatment. His ulcers have moderate to heavy drainage. He was in the hospital from 11/30/22 until 12/09/22 for treatment of cellulitis andedema. He underwent treatment with Vancomycin and IV lasix and compression. Discharged on 12/09/22. He returned to his assisted living apartment on Tuesday12/21/22. Subjective Subjective Mauricio is a 69-year-old male with longstanding history of chronic venous ulcerationto the left lower extremity and now a right lower extremity venous ulcer that isnearly circumferential. Wound culture from 12/07/24 was positive for Providencia stuartii, Vancomycin resistant E. Faecalis, Corynebacterium striatum and completed Augmentin orally. His edema is better this week and he has been using and calcium alginate since Tuesday. He tolerated the 3M wraps until Tuesday. Hisulcers are generally the same if not worse this week. He is using KISHORE wraps for compression. 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 He continues to use his lymphedema pumps but continues to have pain with use of these pumps. 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 Objective Data Objective Data Vital Signs: Vital Signs Temp Pulse Resp BP O2 Del Method 97.2 F L 75 16 179/75 H Room Air 12/28/24 09:24 12/28/24 09:24 12/28/24 09:24 12/28/24 09:24 12/28/24 09:24 Oxygen Delivery Method Room Air Physical Exam Const alert, oriented x3 and no apparent distress General Appearance: cooperative and comfortable HEENT normocephalic and head/scalp atraumatic Lymph Lymphatic: lymphedema moderate Resp normal respiratory effort Effort and Inspection: able to speak in complete sentences Cardio regular rate and regular rhythm Extremity Extremity Narrative: His ulcers are painful and larger and the right lower leg remains more swollen than his left General Extremity: edema bilateral lower extremity Details: severe Skin General Skin Exam: venous stasis and dermatitis Wounds: wounds noted Wound Narrative: as in clinical panel, + devitalized tissue, there is increased depth, + granulation tissue bilateral ulcer with good granulation and moderate to heavy slough prior to debridement and minimal post debridement Psych mental status grossly normal, thought process normal, cooperative and affect normal Debridement Note Debridement Note Wound debrided: left medial LE ulcer Laterality: Left Type of Debridement: Excisional debridement Anesthesia Used: 5% Lidocaine Gel and Cetacaine Depth: Down to and including healthy tissue and in the subcutaneous layer Percentage of wound debrided: 100 Instrument Used: - (Misonix ultrasonic debridement) Tissue Removed: Yellow slough, devitalized tissue Severity: Fat Layer Exposed Amount of bleeding with debridement: Mild Bleeding Controlled with: Compression and gauze Patient tolerated procedure: Patient tolerated procedure well Post-Debridement Measurements and Additional Note: Post-Debridement Measurements/Treatment - Nurse 1 - General Ulcer Assessment Start: 12/14/24 09:45 Freq: Status: Active Protocol: WC.LOWEXT Activity Type Activity Date Activity User E-sign Co-sign Detail Recorded Client Recorded Date Recorded By Document 12/14/24 09:45 RB [id number] 12/14/24 10:11 RB Document 12/21/24 10:17 KW [id number] 12/21/24 10:26 KW Document 12/28/24 09:24 KW [id number] 12/28/24 09:35 KW 12/14/24 12/21/24 12/28/24 09:45 10:17 09:24 - Today's Visit Information Type of service Follow-up Visit Follow-up Visit Follow-up Visit (Physician/APPLICATIONS SPECIALIST (Physician/APPLICATIONS SPECIALIST (Physician/APPLICATIONS SPECIALIST ) ) ) Arrival Mode Ambulatory, Ambulatory, Ambulatory, Walker Walker Walker Transfer Assistance None Patient Identification Verified (Name & Yes Yes Yes ) Patient Requires Transmission-Based No Precautions Vital Signs Temperature (97.8 F-99.1 F) 95.5 F L 96.5 F L 97.2 F L Temperature Source Temporal Temporal Temporal Pulse Rate (60-100) 74 84 75 Pulse Location Monitor Monitor Monitor Respiratory Rate (12-18) 18 16 16 Respiratory rate source Observation Observation Observation Oxygen Delivery Method Room Air Room Air Blood Pressure (90/60-120/80) 126/70 H 132/61 H 179/75 H Blood Pressure Mean (mm Hg) 88 84 109 Source Monitor Monitor Monitor Position Semi-Fowlers Semi-Fowlers Semi-Fowlers Blood Pressure Location Right Arm Left Arm Left Arm History Since Last Visit- (Skip if this is Patient's initial visit) Have you changed medications since your Yes No No last visit? Any new allergies or adverse reactions No No No Had a fall/change in ADL's that may No No No increase risk of falls Signs or symptoms of abuse and/or No No No neglect since last visit Have you been in the hospital since your Yes No No last visit? Has dressing in place as prescribed Yes Yes Yes Has compression in place as prescribed Yes Yes Yes Has offloadiing in place as prescribed No N/A N/A Experienced any changes in pain level or No No No management Left Footwear Regular Shoe Regular Shoe Regular Shoe Right Footwear Regular Shoe Regular Shoe Regular Shoe Pain Scale: 0-10 Numeric Is Patient Pain Free? Yes Yes Yes LLE -Description Sharp,Burning -Intensity 7 -Duration (hours) Acute -Pain Behavior Withdrawal from Touch -Pain Aggravating Factors ADL's,Exercise/ Activity, Debridement -Alleviating Factors/Interventions Medication -Effectiveness of Alleviating Factor/ Moderately Intervention effective WC - Nurse 1 - General Ulcer Measurement Start: 12/14/24 09:45 Freq: Status: Active Protocol: Activity Type Activity Date Activity User E-sign Co-sign Detail Recorded Client Recorded Date Recorded By Document 12/14/24 09:45 RB [id number] 12/14/24 10:11 RB Document 12/21/24 10:17 KW [id number] 12/21/24 10:26 KW Document 12/28/24 09:24 KW [id number] 12/28/24 09:35 KW 12/14/24 12/21/24 12/28/24 09:45 10:17 09:24 Wound Center Nurse 1 #23 R Lat Leg -Combined with other wound No -Current Size (cm) - Length 10.5 -Current Size (cm) - Width 10.5 -Current Size (cm) - Depth 0.2 -Total Square Cm 110.25 -Photo Taken Yes -Tunneling No -Undermining/Tunneling No -Circular Undermining No -Exudate Amt Medium -Exudate Type Serosanguineous -Wound Margin Distinct, Outline Attached -Granulation Amt Medium (34-66%) -Granulation Quality Lingle -Slough/Fibrin Yes -Necrosis Amt Small (1-33%) -Necrotic Tissue Type Adherent Slough -Structure Exposed N/A -Texture (Marie-wound Skin Appearance) Assessed, Scarring -Moisture (Marie-wound Skin Appearance) Assessed -Color (Marie-wound Skin Appearance) Assessed -Temperature (Marie-wound Skin No Abnormality Appearance) (Pt Warm) -Tenderness on Palpation (Marie-wound No Skin Appearance) -Ulcer Cleansing Wound Cleanser -Foul Odor after Cleansing No -Anesthetic Used 5% Lidocaine Gel #24 Left Lateral Leg -Combined with other wound No -Current Size (cm) - Length 10.5 3 3.4 -Current Size (cm) - Width 10.5 2.8 2.4 -Current Size (cm) - Depth 0.2 0.1 0.2 -Total Square Cm 110.25 8.4 8.16 -Date of Last Picture (Recall this 12/21/24 field) -Photo Taken Yes -Tunneling No -Undermining/Tunneling No -Circular Undermining No -Exudate Amt Medium Medium Medium -Exudate Type Serosanguineous Serosanguineous Serosanguineous -Wound Margin Distinct, Distinct, Distinct, Outline Outline Outline Attached Attached Attached -Granulation Amt Medium (34-66%) Medium (34-66%) Small (1-33%) -Granulation Quality Lingle Lingle Lingle,Red -Slough/Fibrin Yes -Necrosis Amt Medium (34-66%) Large (67-100%) Large (67-100%) -Necrotic Tissue Type Adherent Slough Adherent Slough Adherent Slough -Structure Exposed N/A -Texture (Marie-wound Skin Appearance) Assessed, Assessed Assessed Scarring -Moisture (Marie-wound Skin Appearance) Assessed Assessed Assessed,Dry/ Scaly -Color (Marie-wound Skin Appearance) Assessed Assessed, Assessed, Erythema, Hemosiderin Hemosiderin Staining Staining -Temperature (Marie-wound Skin No Abnormality No Abnormality No Abnormality Appearance) (Pt Warm) (Pt Warm) (Pt Warm) -Tenderness on Palpation (Marie-wound No No No Skin Appearance) -Ulcer Cleansing Wound Cleanser Rinsed/ Soap and Water Irrigated with Saline -Foul Odor after Cleansing No No -Anesthetic Used 5% Lidocaine 5% Lidocaine 5% Lidocaine Gel Gel Gel *#22 R Medial Leg circumferential -Combined with other wound No -Current Size (cm) - Length 14.5 12 12.2 -Current Size (cm) - Width 14.5 37.4 32.5 -Current Size (cm) - Depth 0.2 0.2 0.2 -Total Square Cm 210.25 448.8 396.50 -Date of Last Picture (Recall this 12/21/24 field) -Photo Taken Yes -Tunneling No -Undermining/Tunneling No -Circular Undermining No -Exudate Amt Medium Large Medium -Exudate Type Serosanguineous Serosanguineous Serosanguineous -Wound Margin Thickened & Distinct, Distinct, Rolled Under Outline Outline Attached Attached -Granulation Amt Medium (34-66%) Small (1-33%) Small (1-33%) -Granulation Quality Lingle Lingle Red -Slough/Fibrin Yes -Necrosis Amt Medium (34-66%) Large (67-100%) Large (67-100%) -Necrotic Tissue Type Adherent Slough Adherent Slough Adherent Slough -Structure Exposed N/A -Texture (Marie-wound Skin Appearance) Assessed, Assessed Assessed Scarring -Moisture (Marie-wound Skin Appearance) Assessed Assessed Assessed,Dry/ Scaly -Color (Marie-wound Skin Appearance) Assessed Assessed, Assessed, Erythema, Hemosiderin Hemosiderin Staining Staining -Temperature (Marie-wound Skin No Abnormality No Abnormality No Abnormality Appearance) (Pt Warm) (Pt Warm) (Pt Warm) -Tenderness on Palpation (Marie-wound No No No Skin Appearance) -Ulcer Cleansing Wound Cleanser Soap and Water -Foul Odor after Cleansing No No No -Anesthetic Used 5% Lidocaine 5% Lidocaine 5% Lidocaine Gel Gel Gel #18 Left medial LE cluster -Combined with other wound No -Current Size (cm) - Length 9 8.8 8.4 -Current Size (cm) - Width 15 15.5 15.3 -Current Size (cm) - Depth 0.2 0.3 0.2 -Total Square Cm 135 136.40 128.52 -Date of Last Picture (Recall this 12/21/24 12/28/24 field) -Photo Taken Yes -Tunneling No -Undermining/Tunneling No -Circular Undermining No -Exudate Amt Medium Medium Small -Exudate Type Serosanguineous Serosanguineous Serosanguineous -Wound Margin Distinct, Distinct, Distinct, Outline Outline Outline Attached Attached Attached -Granulation Amt Medium (34-66%) Small (1-33%) Small (1-33%) -Granulation Quality Lingle Lingle Red -Slough/Fibrin Yes -Necrosis Amt Medium (34-66%) Large (67-100%) Large (67-100%) -Necrotic Tissue Type Adherent Slough Adherent Slough Adherent Slough -Structure Exposed N/A -Texture (Marie-wound Skin Appearance) Scarring Assessed Assessed -Moisture (Marie-wound Skin Appearance) Assessed Assessed Assessed,Dry/ Scaly -Color (Marie-wound Skin Appearance) Assessed Assessed, Assessed, Erythema, Hemosiderin Hemosiderin Staining Staining -Temperature (Marie-wound Skin No Abnormality No Abnormality No Abnormality Appearance) (Pt Warm) (Pt Warm) (Pt Warm) -Tenderness on Palpation (Marie-wound No No No Skin Appearance) -Ulcer Cleansing Wound Cleanser Soap and Water -Foul Odor after Cleansing No No No -Anesthetic Used 5% Lidocaine 5% Lidocaine 5% Lidocaine Gel Gel Gel Lower Limb Edema Present Yes Right Calf (cm) 52.2 53.5 49.2 Right Ankle (cm) 29.2 30.2 30.5 Left Calf (cm) 47.5 47.0 45.4 Left Ankle (cm) 29.4 30.5 29.7 WC - Nurse 2 - General Ulcer CM Notes Start: 12/14/24 09:45 Freq: Status: Active Protocol: Activity Type Activity Date Activity User E-sign Co-sign Detail Recorded Client Recorded Date Recorded By Document 12/14/24 10:42 [id number] 12/14/24 11:03 GM Document 12/21/24 10:41 [id number] 12/21/24 11:10 GM Document 12/28/24 10:00 [employer] [id number] 12/28/24 10:24 12/14/24 12/21/24 12/28/24 10:42 10:41 10:00 Wound Center Nurse 2 #23 R Lat Leg -Time 10:43 -Correct Patient Yes -Correct Side, Site, Position Yes -Correct Procedure Yes -Procedure Performed Yes -Type of Procedure Debridement -Clinical Debridement Subcutaneous -Tissue Removed Subcutaneous -Tunneling No -Undermining/Tunneling No -Circular Undermining No -Wound/Ulcer Outcome Not Healed -Ulcer Cleansing Rinsed/ Irrigated with Saline -Foul Odor after Cleansing No -Bioengineered Tissue No -Bleeding Controlled with Pressure -Treatment Response Procedure Tolerated Well -Debridement - Subq, 1st 20sq cm No #24 Left Lateral Leg -Time 10:42 10:41 10:05 -Correct Patient Yes Yes Yes -Correct Side, Site, Position Yes Yes Yes -Correct Procedure Yes Yes Yes -Procedure Performed Yes Yes Yes -Type of Procedure Debridement Debridement Debridement -Clinical Debridement Subcutaneous Subcutaneous Subcutaneous -Tissue Removed Subcutaneous Subcutaneous -Post Debridement (cm) - Length 3.1 3.1 3.2 -Post Debridement (cm) - Width 1.9 2.3 2.0 -Post Debridement (cm) - Depth 0.1 0.1 0.1 -Total Square (Post) (cm) 5.89 7.13 6.40 -Area of Debridement (cm) - Length 3.0 3.1 3.2 -Area of Debridement (cm) - Width 1.9 2.3 2.0 -Total Square (Area) (cm) 5.70 7.13 6.40 -Tunneling No No No -Undermining/Tunneling No No No -Circular Undermining No No No -Wound/Ulcer Outcome Not Healed Not Healed Not Healed -Ulcer Cleansing Rinsed/ Rinsed/ Rinsed/ Irrigated with Irrigated with Irrigated with Saline Saline Saline -Foul Odor after Cleansing No No No -Bioengineered Tissue No No No -Bleeding Controlled with Pressure Pressure Pressure -Treatment Response Procedure Procedure Procedure Tolerated Well Tolerated Well Tolerated Well -Offloading No No No -Debridement - Subq, 1st 20sq cm No No No *#22 R Medial Leg circumferential -Time 10:43 10:42 10:06 -Correct Patient Yes Yes Yes -Correct Side, Site, Position Yes Yes Yes -Correct Procedure Yes Yes Yes -Procedure Performed Yes Yes Yes -Type of Procedure Debridement Debridement Debridement -Clinical Debridement Subcutaneous Subcutaneous Subcutaneous -Tissue Removed Subcutaneous Subcutaneous Subcutaneous -Post Debridement (cm) - Length 12.0 12.0 12.0 -Post Debridement (cm) - Width 26.0 27.0 26.5 -Post Debridement (cm) - Depth 0.1 0.2 0.1 -Total Square (Post) (cm) 312.00 324.00 318.00 -Area of Debridement (cm) - Length 12.0 12.0 12.0 -Area of Debridement (cm) - Width 26.0 27.0 26.5 -Total Square (Area) (cm) 312.00 324.00 318.00 -Tunneling No No No -Undermining/Tunneling No No No -Circular Undermining No No No -Wound/Ulcer Outcome Not Healed Not Healed Not Healed -Ulcer Cleansing Rinsed/ Rinsed/ Rinsed/ Irrigated with Irrigated with Irrigated with Saline Saline Saline -Foul Odor after Cleansing No No No -Bioengineered Tissue No No No -Bleeding Controlled with Pressure Pressure Pressure -Treatment Response Procedure Procedure Procedure Tolerated Well Tolerated Well Tolerated Well -Offloading No -Debridement - Subq, 1st 20sq cm No No No #18 Left medial LE cluster -Time 10:43 10:43 10:06 -Correct Patient Yes Yes Yes -Correct Side, Site, Position Yes Yes Yes -Correct Procedure Yes Yes Yes -Procedure Performed Yes Yes Yes -Type of Procedure Debridement Debridement Debridement -Clinical Debridement Subcutaneous Subcutaneous Subcutaneous -Tissue Removed Subcutaneous Subcutaneous Subcutaneous -Post Debridement (cm) - Length 9.2 8.8 8.9 -Post Debridement (cm) - Width 12.5 14.0 13.8 -Post Debridement (cm) - Depth 0.2 0.1 0.1 -Total Square (Post) (cm) 115.00 123.20 122.82 -Area of Debridement (cm) - Length 9.2 8.8 8.9 -Area of Debridement (cm) - Width 12.5 14.0 13.8 -Total Square (Area) (cm) 115.00 123.20 122.82 -Tunneling No No No -Undermining/Tunneling No No No -Circular Undermining No No No -Wound/Ulcer Outcome Not Healed Not Healed Not Healed -Ulcer Cleansing Rinsed/ Rinsed/ Rinsed/ Irrigated with Irrigated with Irrigated with Saline Saline Saline -Foul Odor after Cleansing No No No -Bioengineered Tissue No No No -Bleeding Controlled with Pressure Pressure Pressure -Treatment Response Procedure Procedure Procedure Tolerated Well Tolerated Well Tolerated Well -Offloading No No -Debridement - Subq, 1st 20sq cm Yes Yes Yes -Debridement, SubQ, ea addt'l 20sq cm 12 22 22 or part thereof Pain Scale: 0-10 Numeric Is Patient Pain Free? Yes Yes Yes WC - Nurse 3 - General Ulcer D/C NN Start: 12/14/24 09:45 Freq: Status: Active Protocol: Activity Type Activity Date Activity User E-sign Co-sign Detail Recorded Client Recorded Date Recorded By Document 12/14/24 11:51 RB [id number] 12/14/24 11:54 RB Document 12/21/24 11:33 RB [id number] 12/21/24 11:34 RB Edit Result 12/21/24 11:33 RB (1) [id number] 12/21/24 11:49 RB Edit Result 12/21/24 11:33 RB (2) [id number] 12/21/24 13:06 RB Document 12/28/24 10:55 KW [id number] 12/28/24 10:57 KW (1) *#22 R Medial Leg circumferential - Primary Dressing Applied Aquacel Extra, => Aquacel Extra, Optilok 6.5x10 => Optilok 5x5 1/2, => Optilok 6.5x10 - Optilok 5x5 1/2 => 1 #18 Left medial LE cluster - Optilok 6.5x10 => 1 (2) #24 Left Lateral Leg - 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) => 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 #18 Left medial LE cluster - Optilok 5x5 1/2 => 0 12/14/24 12/21/24 12/28/24 11:51 11:33 10:55 Wound Care Center Nurse 3 #24 Left Lateral Leg -Ulcer Cleansing Rinsed/ Irrigated with Saline -Primary Dressing Applied Aquacel Extra, Aquacel AG 4x4 Optilok 6.5x10 -Other Dressing dakins moistened gauze / 2 ABD -Primary Dressing Covered/Secured with Dry Gauze & Dry Gauze & Roll Gauze Roll Gauze, Secured with Tape -Aquacel Extra 1 -Aquacel AG 4x4 1 -Optilok 6.5x10 1 -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) [employer]NA 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 *#22 R Medial Leg circumferential -Ulcer Cleansing Rinsed/ Irrigated with Saline -Primary Dressing Applied Aquacel Extra, Aquacel Extra, Optilok 5x5 1/2 Aquacel AG 4x4, ,Optilok 6.5x10 Optilok 5x5 1/2 ,Optilok 6.5x10 -Other Dressing dakins moistened gauze /ABD -Primary Dressing Covered/Secured with Dry Gauze & Dry Gauze & Roll Gauze Roll Gauze, Secured with Tape -Aquacel Extra 1 1 -Aquacel AG 4x4 1 -Optilok 5x5 1/2 1 1 -Optilok 6.5x10 1 1 #18 Left medial LE cluster -Ulcer Cleansing Rinsed/ Irrigated with Saline -Primary Dressing Applied Hysept Aquacel Extra -Other Dressing dakins aquacel ag moistened gauze / ABD/ kerlix -Primary Dressing Covered/Secured with Dry Gauze & Dry Gauze Roll Gauze, Secured with Tape -Aquacel Extra 1 -Hysept 1 -Optilok 5x5 1/2 0 -Optilok 6.5x10 1 BLE -Multi-Layered Wrap Application Multi-Layer Multi-Layer Comp - Bilat ($ Comp - Bilat ($ ) ) -Other kishore bilat -Multi-Layer Compression Bilat (Qty 4 1 applied) Treatment Response Procedure Procedure Tolerated Well Tolerated Well Pain Scale: 0-10 Numeric Is Patient Pain Free? No Yes Yes LLE -Description Sharp,Burning -Intensity 7 -Duration (hours) Acute -Pain Behavior Withdrawal from Touch -Pain Aggravating Factors Exercise/ Activity, Debridement -Alleviating Factors/Interventions None -Effectiveness of Alleviating Factor/ Moderately Intervention effective WC - Visit Discharge Discharge Condition Stable Stable Stable Ambulatory Status Ambulatory, Ambulatory, Walker Walker Walker Transportation Private Auto [facility] transport Medication Reconcilliation completed & No No No provided to patient/care provider Clinical Summary of Care Provided Yes Yes Yes Additional Wound Wound debrided: right lateral leg Laterality: Right Type of Debridement: Excisional debridement Anesthesia Used: 5% Lidocaine Gel and Cetacaine Depth: Down to and including healthy tissue and in the subcutaneous layer Percentage of wound debrided: 100 Instrument Used: - (Misonix ultrasonic debridement) Tissue Removed: Yellow slough, devitalized tissue Severity: Fat Layer Exposed Amount of bleeding with debridement: Mild Bleeding Controlled with: Compression and gauze Patient tolerated procedure: Patient tolerated procedure well Additional Wound Wound debrided: right medial leg Laterality: Right Type of Debridement: Excisional debridement Anesthesia Used: 5% Lidocaine Gel and Cetacaine Depth: Down to and including healthy tissue and in the subcutaneous layer Percentage of wound debrided: 100 Instrument Used: - (Misonix ultrasonic debridement) Tissue Removed: Yellow slough, devitalized tissue Severity: Fat Layer Exposed Amount of bleeding with debridement: Mild Bleeding Controlled with: Compression and gauze Patient tolerated procedure: Patient tolerated procedure well Assessment/Plan Assessment/Plan (1) Lymphedema: CODE(S): I89.0 - Lymphedema, not elsewhere classified (2) Hypertension: CODE(S): I10 - Essential (primary) hypertension QUALIFIERS: Hypertension type: primary hypertension Qualified Code(s): I10 - Essential (primary) hypertension (3) Hyperlipidemia: CODE(S): E78.5 - Hyperlipidemia, unspecified QUALIFIERS: Hyperlipidemia type: mixed hyperlipidemia Qualified Code(s): E78.2 - Mixed hyperlipidemia (4) History of DVT (deep vein thrombosis): CODE(S): Z86.718 - Personal history of other venous thrombosis and embolism (5) Venous insufficiency (chronic) (peripheral): CODE(S): I87.2 - Venous insufficiency (chronic) (peripheral) (6) Venous ulcer of left lower extremity with varicose veins: CODE(S): I83.029 - Varicose veins of left lower extremity with ulcer of unspecified site (7) Edema: CODE(S): R60.9 - Edema, unspecified QUALIFIERS: Edema type: unspecified Qualified Code(s): R60.9 - Edema, unspecified (8) 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 At home wound-care instructions: Will try using 3M compression with super absorbers and calcium alginate to bilateral lower legs with change on Tuesday or Tuesday. Due to his chronic lymphedema and being unable to don traditional compression stockings and the presence of venous ulcers on his LE b/l, it is medically necessary for him to have Circaid compression garments. These are being ordered.I suspect he is not very compliant with his lymphedema pumps and not getting adequate compression with tubigrips. Due to the delayed progress in wound healing of his venous ulcers, we discussed applying for advanced wound healing product for healing his ulcer. Due to the size of his ulcer, Theraskin application approval was requested from his insurance as it is medically necessary for salvaging his limb and healing his ulcer. He underwent 2 applications of Theraskin to this ulcer. Since applicationof Theraskin he has had much improvement in epithelialization of his ulcer even though the overall size is not significantly changed there is progress. Off-loading: The patient was instructed to avoid pressure and friction on the affected areas. Reposition every 2 hours at minimum. Avoid prolonged standing and/or dangling of legs. When seated, feet should be elevated at chest level. Frequent ambulation is encouraged. Encouraged lymphedema pump use. Diet: Patient encouraged to increase protein intake while taking caution to avoid high carbohydrate and/or sugar intake. Labs/cultures/imaging: Wound culture showed Pseudomonas, Escherichia hermannii, Raoultella planticola, Vancomycin Resist. E. faecalis, Alcaligenes faecalis ssp faeca, Staphylococcus cohnii urealyti and anaerobic bacteria on 06/15/24 and he completed on Levofloxacin and Augmentin. Wound culture taken today on right lateral ulcer which showed Raoultella planticola, Staph hemolyticus, staph epidermidis and morganella morganii but no anaeroobic bacteria, Levofloxacin anddoxycyline were prescribed based on culture results. Labs ordered 10/19/2024. Vitamin D was low A1C 5.4% Wound culture from 12/07/24 was positive for Providencia stuartii, Vancomycin resistant E. Faecalis, Corynebacterium striatum and completed Augmentin orally. Follow-up: Return in 1 week for wound care follow up and have dressing changed by home health Tuesday. Return sooner or report to the emergency room should symptoms worsen, or new symptoms arise. Note: [employer] speech recognition hair tinter software was used to create portions of this document. Sound-alike and misspelled words, as well as other hair tinter errors may be contained in the documentation. 12/28/24 1434 <Electronically signed by Patricia Garcia DO> Cosigner Signature (if applicable): CC: ~ Signed [facility] Work Phone: [phone] Progress note [facility] [address] [place] [id number] Progress Note - Wound Care 12/28/24 1426 MR#: [id number] Acct: [id number] Name: ESTEBAN URBINA Rep #:[id number] : 1955 69 From: Patricia Garcia DO PCP: Dr. Patricia Garcia DO Status:REG RCR Location: History of Present Illness Date of Service: 12/28/24 Chief Complaint: venous ulcers of left lower extremity History of Wound: Mauricio is a 69 yo gentleman who is here today for evaluation of ulcers to to his bilateral lower legs. He has been treated multiple times in thepast at the wound healing center for similar ulcers. The left LE ulcer started after he developed increased swelling and blisters of left leg in Octoberand the right leg started sometime at the end of October. He was seen at PCP's office a culture was taken and it was resistant to several antibiotics. He wastreated initially with Levaquin but had myalgias and then was treated with doxycycline which he finished 2 days ago. He denies improvementand is having swelling to his left calf and thigh. He has been having swelling to both lower extremities for many years and it has worsened over the last few chirag hs. He has not been compliant with compression. He has had increased pain especially in the left leg. He has clear yellow drainage and redness without odor or warmth. He is anti- coagulated on coumadin. He has been washing with Dial soap and witch ifrah. He had been using Collagen at times and using Calcium Alginate and covering with ABD pads during October. He was treated with 3M compression and Aquacel Ag. He was referred to the wound center for ongoing treatment. His ulcers have moderate to heavy drainage. He was in the hospital from 11/30/22 until 12/09/22 for treatment of cellulitis andedema. He underwenttreatment with Vancomycin and IV lasix and compression. Discharged on 12/09/22. He returned to his assisted living apartment on Tuesday12/21/22. Subjective Subjective Mauricio is a 69-year-old male with longstanding history of chronic venous ulcerationto the left lower extremity and now a right lower extremity venous ulcer that isnearly circumferential. Wound culture from 12/07/24 was positive for Providencia stuartii, Vancomycin resistant E. Faecalis, Corynebacteriumstriatum and completed Augmentin orally. His edema is better this week and he has been using and calcium alginate since Tuesday. He tolerated the 3M wraps until Tuesday. Hisulcers are generally the same if not worse this week. He is using KISHORE wraps for compression. 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 He continues to use his lymphedema pumps but continues to have pain with use of these pumps. 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 Objective Data Objective Data Vital Signs: Vital Signs Temp Pulse Resp BP O2 Del Method 97.2 F L 75 16 179/75 H Room Air 12/28/24 09:24 12/28/24 09:24 12/28/24 09:24 12/28/24 09:24 12/28/24 09:24 Oxygen Delivery Method Room Air Physical Exam Const alert, oriented x3 and no apparent distress General Appearance: cooperative and comfortable HEENT normocephalic and head/scalp atraumatic Lymph Lymphatic: lymphedema moderate Resp normal respiratory effort Effort and Inspection: able to speak in complete sentences Cardio regular rate and regular rhythm Extremity Extremity Narrative: His ulcers are painful and larger and the right lower leg remains more swollen than his left General Extremity: edema bilateral lower extremity Details: severe Skin General Skin Exam: venous stasis and dermatitis Wounds: wounds noted Wound Narrative: as in clinical panel, + devitalized tissue, there is increased depth, + granulation tissue bilateral ulcer with good granulation and moderate to heavy slough prior to debridement and minimalpost debridement Psych mental status grossly normal, thought process normal, cooperative and affect normal Debridement Note Debridement Note Wound debrided: left medial LE ulcer Laterality: Left Type of Debridement: Excisional debridement Anesthesia Used: 5% Lidocaine Gel and Cetacaine Depth: Down to and including healthy tissue and in the subcutaneous layer Percentage of wound debrided: 100 Instrument Used: - (Misonix ultrasonic debridement) Tissue Removed: Yellow slough, devitalized tissue Severity: Fat Layer Exposed Amount of bleeding with debridement: Mild Bleeding Controlled with: Compression and gauze Patient tolerated procedure: Patient tolerated procedure well Post-Debridement Measurements and Additional Note: Post-Debridement Measurements/Treatment - Nurse 1 - General Ulcer Assessment Start: 12/14/24 09:45 Freq: Status: Active Protocol: ONDINA Activity Type Activity Date Activity User E-sign Co-sign Detail Recorded Client Recorded Date Recorded By Document 12/14/24 09:45 RB [id number] 12/14/24 10:11 RB Document 12/21/24 10:17 KW [id number] 12/21/24 10:26 KW Document 12/28/24 09:24 KW [id number] 12/28/24 09:35 KW 12/14/24 12/21/24 12/28/24 09:45 10:17 09:24 - Today's Visit Information Type of service Follow-up Visit Follow-up Visit Follow-up Visit (Physician/APPLICATIONS SPECIALIST (Physician/APPLICATIONS SPECIALIST (Physician/APPLICATIONS SPECIALIST ) ) ) Arrival Mode Ambulatory, Ambulatory, Ambulatory, Walker Walker Walker Transfer Assistance None Patient Identification Verified (Name & Yes Yes Yes ) Patient Requires Transmission-Based No Precautions Vital Signs Temperature (97.8 F-99.1 F) 95.5 F L 96.5 F L 97.2 F L Temperature Source Temporal Temporal Temporal Pulse Rate (60-100) 74 84 75 Pulse Location Monitor Monitor Monitor Respiratory Rate (12-18) 18 16 16 Respiratory rate source Observation Observation Observation Oxygen Delivery Method Room Air Room Air Blood Pressure (90/60-120/80) 126/70 H 132/61 H 179/75 H Blood Pressure Mean (mm Hg) 88 84 109 Source Monitor Monitor Monitor Position Semi-Fowlers Semi-Fowlers Semi-Fowlers Blood Pressure Location Right Arm Left Arm Left Arm History Since Last Visit- (Skip if this is Patient's initial visit) Have you changed medications since your Yes No No last visit? Any new allergies or adverse reactions No No No Had a fall/change in ADL's that may No No No increase risk of falls Signs or symptoms of abuse and/or No No No neglect since last visit Have you been in the hospital since your Yes No No last visit? Has dressing in place as prescribed Yes Yes Yes Has compression in place as prescribed Yes Yes Yes Has offloadiing in place as prescribed No N/A N/A Experienced any changes in pain level or No No No management Left Footwear Regular Shoe Regular Shoe Regular Shoe Right Footwear Regular Shoe Regular Shoe Regular Shoe Pain Scale: 0-10 Numeric Is Patient Pain Free? Yes Yes Yes LLE -Description Sharp,Burning -Intensity 7 -Duration (hours) Acute -Pain Behavior Withdrawal from Touch -Pain Aggravating Factors ADL's,Exercise/ Activity, Debridement -Alleviating Factors/Interventions Medication -Effectiveness of Alleviating Factor/ Moderately Intervention effective WC - Nurse 1 - General Ulcer Measurement Start: 12/14/24 09:45 Freq: Status: Active Protocol: Activity Type Activity Date Activity User E-sign Co-sign Detail Recorded Client Recorded Date Recorded By Document 12/14/24 09:45 RB [id number] 12/14/24 10:11 RB Document 12/21/24 10:17 KW [id number] 12/21/24 10:26 KW Document 12/28/24 09:24 KW [id number] 12/28/24 09:35 KW 12/14/24 12/21/24 12/28/24 09:45 10:17 09:24 Wound Center Nurse 1 #23 R Lat Leg -Combined with other wound No -Current Size (cm) - Length 10.5 -Current Size (cm) - Width 10.5 -Current Size (cm) - Depth 0.2 -Total Square Cm 110.25 -Photo Taken Yes -Tunneling No -Undermining/Tunneling No -Circular Undermining No -Exudate Amt Medium -Exudate Type Serosanguineous -Wound Margin Distinct, Outline Attached -Granulation Amt Medium (34-66%) -Granulation Quality Lingle -Slough/Fibrin Yes -Necrosis Amt Small (1-33%) -Necrotic Tissue Type Adherent Slough -Structure Exposed N/A -Texture (Marie-wound Skin Appearance) Assessed, Scarring -Moisture (Marie-wound Skin Appearance) Assessed -Color (Marie-wound Skin Appearance) Assessed -Temperature (Marie-wound Skin No Abnormality Appearance) (Pt Warm) -Tenderness on Palpation (Marie-wound No Skin Appearance) -Ulcer Cleansing Wound Cleanser -Foul Odor after Cleansing No -Anesthetic Used 5% Lidocaine Gel #24 Left Lateral Leg -Combined with other wound No -Current Size (cm) - Length 10.5 3 3.4 -Current Size (cm) - Width 10.5 2.8 2.4 -Current Size (cm) - Depth 0.2 0.1 0.2 -Total Square Cm 110.25 8.4 8.16 -Date of Last Picture (Recall this 12/21/24 field) -Photo Taken Yes -Tunneling No -Undermining/Tunneling No -Circular Undermining No -Exudate Amt Medium Medium Medium -Exudate Type Serosanguineous Serosanguineous Serosanguineous -Wound Margin Distinct, Distinct, Distinct, Outline Outline Outline Attached Attached Attached -Granulation Amt Medium (34-66%) Medium (34-66%) Small (1-33%) -Granulation Quality Lingle Lingle Lingle,Red -Slough/Fibrin Yes -Necrosis Amt Medium (34-66%) Large (67-100%) Large (67-100%) -Necrotic Tissue Type Adherent Slough Adherent Slough Adherent Slough -Structure Exposed N/A -Texture (Marie-wound Skin Appearance) Assessed, Assessed Assessed Scarring -Moisture (Marie-wound Skin Appearance) Assessed Assessed Assessed,Dry/ Scaly -Color (Marie-wound Skin Appearance) Assessed Assessed, Assessed, Erythema, Hemosiderin Hemosiderin Staining Staining -Temperature (Marie-wound Skin No Abnormality No Abnormality No Abnormality Appearance) (Pt Warm) (Pt Warm) (Pt Warm) -Tenderness on Palpation (Marie-wound No No No Skin Appearance) -Ulcer Cleansing Wound Cleanser Rinsed/ Soap and Water Irrigated with Saline -Foul Odor after Cleansing No No -Anesthetic Used 5% Lidocaine 5% Lidocaine 5% Lidocaine Gel Gel Gel *#22 R Medial Leg circumferential -Combined with other wound No -Current Size (cm) - Length 14.5 12 12.2 -Current Size (cm) - Width 14.5 37.4 32.5 -Current Size (cm) - Depth 0.2 0.2 0.2 -Total Square Cm 210.25 448.8 396.50 -Date of Last Picture (Recall this 12/21/24 field) -Photo Taken Yes -Tunneling No -Undermining/Tunneling No -Circular Undermining No -Exudate Amt Medium Large Medium -Exudate Type Serosanguineous Serosanguineous Serosanguineous -Wound Margin Thickened & Distinct, Distinct, Rolled Under Outline Outline Attached Attached -Granulation Amt Medium (34-66%) Small (1-33%) Small (1-33%) -Granulation Quality Lingle Lingle Red -Slough/Fibrin Yes -Necrosis Amt Medium (34-66%) Large (67-100%) Large (67-100%) -Necrotic Tissue Type Adherent Slough Adherent Slough Adherent Slough -Structure Exposed N/A -Texture (Marie-wound Skin Appearance) Assessed, Assessed Assessed Scarring -Moisture (Marie-wound Skin Appearance) Assessed Assessed Assessed,Dry/ Scaly -Color (Marie-wound Skin Appearance) Assessed Assessed, Assessed, Erythema, Hemosiderin Hemosiderin Staining Staining -Temperature (Marie-wound Skin No Abnormality No Abnormality No Abnormality Appearance) (Pt Warm) (Pt Warm) (Pt Warm) -Tenderness on Palpation (Marie-wound No No No Skin Appearance) -Ulcer Cleansing Wound Cleanser Soap and Water -Foul Odor after Cleansing No No No -Anesthetic Used 5% Lidocaine 5% Lidocaine 5% Lidocaine Gel Gel Gel #18 Left medial LE cluster -Combined with other wound No -Current Size (cm) - Length 9 8.8 8.4 -Current Size (cm) - Width 15 15.5 15.3 -Current Size (cm) - Depth 0.2 0.3 0.2 -Total Square Cm 135 136.40 128.52 -Date of Last Picture (Recall this 12/21/24 12/28/24 field) -Photo Taken Yes -Tunneling No -Undermining/Tunneling No -Circular Undermining No -Exudate Amt Medium Medium Small -Exudate Type Serosanguineous Serosanguineous Serosanguineous -Wound Margin Distinct, Distinct, Distinct, Outline Outline Outline Attached Attached Attached -Granulation Amt Medium (34-66%) Small (1-33%) Small (1-33%) -Granulation Quality Lingle Lingle Red -Slough/Fibrin Yes -Necrosis Amt Medium (34-66%) Large (67-100%) Large (67-100%) -Necrotic Tissue Type Adherent Slough Adherent Slough Adherent Slough -Structure Exposed N/A -Texture (Marie-wound Skin Appearance) Scarring Assessed Assessed -Moisture (Marie-wound Skin Appearance) Assessed Assessed Assessed,Dry/ Scaly -Color (Marie-wound Skin Appearance) Assessed Assessed, Assessed, Erythema, Hemosiderin Hemosiderin Staining Staining -Temperature (Marie-wound Skin No Abnormality No Abnormality No Abnormality Appearance) (Pt Warm) (Pt Warm) (Pt Warm) -Tenderness on Palpation (Marie-wound No No No Skin Appearance) -Ulcer Cleansing Wound Cleanser Soap and Water -Foul Odor after Cleansing No No No -Anesthetic Used 5% Lidocaine 5% Lidocaine 5% Lidocaine Gel Gel Gel Lower Limb Edema Present Yes Right Calf (cm) 52.2 53.5 49.2 Right Ankle (cm) 29.2 30.2 30.5 Left Calf (cm) 47.5 47.0 45.4 Left Ankle (cm) 29.4 30.5 29.7 WC - Nurse 2 - General Ulcer CM Notes Start: 12/14/24 09:45 Freq: Status: Active Protocol: Activity Type Activity Date Activity User E-sign Co-sign Detail Recorded Client Recorded Date Recorded By Document 12/14/24 10:42 [id number] 12/14/24 11:03 Document 12/21/24 10:41 [id number] 12/21/24 11:10 Document 12/28/24 10:00 [id number] 12/28/24 10:24 12/14/24 12/21/24 12/28/24 10:42 10:41 10:00 Wound Center Nurse 2 #23 R Lat Leg -Time 10:43 -Correct Patient Yes -Correct Side, Site, Position Yes -Correct Procedure Yes -Procedure Performed Yes -Type of Procedure Debridement -Clinical Debridement Subcutaneous -Tissue Removed Subcutaneous -Tunneling No -Undermining/Tunneling No -Circular Undermining No -Wound/Ulcer Outcome Not Healed -Ulcer Cleansing Rinsed/ Irrigated with Saline -Foul Odor after Cleansing No -Bioengineered Tissue No -Bleeding Controlled with Pressure -Treatment Response Procedure Tolerated Well -Debridement - Subq, 1st 20sq cm No #24 Left Lateral Leg -Time 10:42 10:41 10:05 -Correct Patient Yes Yes Yes -Correct Side, Site, Position Yes Yes Yes -Correct Procedure Yes Yes Yes -Procedure Performed Yes Yes Yes -Type of Procedure Debridement Debridement Debridement -Clinical Debridement Subcutaneous Subcutaneous Subcutaneous -Tissue Removed Subcutaneous Subcutaneous -Post Debridement (cm) - Length 3.1 3.1 3.2 -Post Debridement (cm) - Width 1.9 2.3 2.0 -Post Debridement (cm) - Depth 0.1 0.1 0.1 -Total Square (Post) (cm) 5.89 7.13 6.40 -Area of Debridement (cm) - Length 3.0 3.1 3.2 -Area of Debridement (cm) - Width 1.9 2.3 2.0 -Total Square (Area) (cm) 5.70 7.13 6.40 -Tunneling No No No -Undermining/Tunneling No No No -Circular Undermining No No No -Wound/Ulcer Outcome Not Healed Not Healed Not Healed -Ulcer Cleansing Rinsed/ Rinsed/ Rinsed/ Irrigated with Irrigated with Irrigated with Saline Saline Saline -Foul Odor after Cleansing No No No -Bioengineered Tissue No No No -Bleeding Controlled with Pressure Pressure Pressure -Treatment Response Procedure Procedure Procedure Tolerated Well Tolerated Well Tolerated Well -Offloading No No No -Debridement - Subq, 1st 20sq cm No No No *#22 R Medial Leg circumferential -Time 10:43 10:42 10:06 -Correct Patient Yes Yes Yes -Correct Side, Site, Position Yes Yes Yes -Correct Procedure Yes Yes Yes -Procedure Performed Yes Yes Yes -Type of Procedure Debridement Debridement Debridement -Clinical Debridement Subcutaneous Subcutaneous Subcutaneous -Tissue Removed Subcutaneous Subcutaneous Subcutaneous -Post Debridement (cm) - Length 12.0 12.0 12.0 -Post Debridement (cm) - Width 26.0 27.0 26.5 -Post Debridement (cm) - Depth 0.1 0.2 0.1 -Total Square (Post) (cm) 312.00 324.00 318.00 -Area of Debridement (cm) - Length 12.0 12.0 12.0 -Area of Debridement (cm) - Width 26.0 27.0 26.5 -Total Square (Area) (cm) 312.00 324.00 318.00 -Tunneling No No No -Undermining/Tunneling No No No -Circular Undermining No No No -Wound/Ulcer Outcome Not Healed Not Healed Not Healed -Ulcer Cleansing Rinsed/ Rinsed/ Rinsed/ Irrigated with Irrigated with Irrigated with Saline Saline Saline -Foul Odor after Cleansing No No No -Bioengineered Tissue No No No -Bleeding Controlled with Pressure Pressure Pressure -Treatment Response Procedure Procedure Procedure Tolerated Well Tolerated Well Tolerated Well -Offloading No -Debridement - Subq, 1st 20sq cm No No No #18 Left medial LE cluster -Time 10:43 10:43 10:06 -Correct Patient Yes Yes Yes -Correct Side, Site, Position Yes Yes Yes -Correct Procedure Yes Yes Yes -Procedure Performed Yes Yes Yes -Type of Procedure Debridement Debridement Debridement -Clinical Debridement Subcutaneous Subcutaneous Subcutaneous -Tissue Removed Subcutaneous Subcutaneous Subcutaneous -Post Debridement (cm) - Length 9.2 8.8 8.9 -Post Debridement (cm) - Width 12.5 14.0 13.8 -Post Debridement (cm) - Depth 0.2 0.1 0.1 -Total Square (Post) (cm) 115.00 123.20 122.82 -Area of Debridement (cm) - Length 9.2 8.8 8.9 -Area of Debridement (cm) - Width 12.5 14.0 13.8 -Total Square (Area) (cm) 115.00 123.20 122.82 -Tunneling No No No -Undermining/Tunneling No No No -Circular Undermining No No No -Wound/Ulcer Outcome Not Healed Not Healed Not Healed -Ulcer Cleansing Rinsed/ Rinsed/ Rinsed/ Irrigated with Irrigated with Irrigated with Saline Saline Saline -Foul Odor after Cleansing No No No -Bioengineered Tissue No No No -Bleeding Controlled with Pressure Pressure Pressure -Treatment Response Procedure Procedure Procedure Tolerated Well Tolerated Well Tolerated Well -Offloading No No -Debridement - Subq, 1st 20sq cm Yes Yes Yes -Debridement, SubQ, ea addt'l 20sq cm 12 22 or part thereof Pain Scale: 0-10 Numeric Is Patient Pain Free? Yes Yes Yes WC - Nurse 3 - General Ulcer D/C NN Start: 12/14/24 09:45 Freq: Status: Active Protocol: Activity Type Activity Date Activity User E-sign Co-sign Detail Recorded Client Recorded Date Recorded By Document 12/14/24 11:51 RB [id number] 12/14/24 11:54 RB Document 12/21/24 11:33 RB [id number] 12/21/24 11:34 RB Edit Result 12/21/24 11:33 RB (1) [id number] 12/21/24 11:49 RB Edit Result 12/21/24 11:33 RB (2) [id number] 12/21/24 13:06 RB Document 12/28/24 10:55 KW [id number] 12/28/24 10:57 KW (1) *#22 R Medial Leg circumferential - Primary Dressing Applied Aquacel Extra, => Aquacel Extra, Optilok 6.5x10 => Optilok 5x5 1/2, => Optilok 6.5x10 - Optilok 5x5 1/2 => 1 #18 Left medial LE cluster - Optilok 6.5x10 => 1 (2) #24 Left Lateral Leg - 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) => RANJANA CHOI LPN ASSITED IN BILATERAL LE 3M WRAPS #18 Left medial LE cluster - Optilok 5x5 1/2 => 0 12/14/24 12/21/24 12/28/24 11:51 11:33 10:55 Wound Care Center Nurse 3 #24 Left Lateral Leg -Ulcer Cleansing Rinsed/ Irrigated with Saline -Primary Dressing Applied Aquacel Extra, Aquacel AG 4x4 Optilok 6.5x10 -Other Dressing dakins moistened gauze / 2 ABD -Primary Dressing Covered/Secured with Dry Gauze & Dry Gauze & Roll Gauze Roll Gauze, Secured with Tape -Aquacel Extra 1 -Aquacel AG 4x4 1 -Optilok 6.5x10 1 -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) RANJANA CHOI 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 *#22 R Medial Leg circumferential -Ulcer Cleansing Rinsed/ Irrigated with Saline -Primary Dressing Applied Aquacel Extra, Aquacel Extra, Optilok 5x5 1/2 Aquacel AG 4x4, ,Optilok 6.5x10 Optilok 5x5 1/2 ,Optilok 6.5x10 -Other Dressing dakins moistened gauze /ABD -Primary Dressing Covered/Secured with Dry Gauze & Dry Gauze & Roll Gauze Roll Gauze, Secured with Tape -Aquacel Extra 1 1 -Aquacel AG 4x4 1 -Optilok 5x5 1/2 1 1 -Optilok 6.5x10 1 1 #18 Left medial LE cluster -Ulcer Cleansing Rinsed/ Irrigated with Saline -Primary Dressing Applied Hysept Aquacel Extra -Other Dressing dakins aquacel ag moistened gauze / ABD/ kerlix -Primary Dressing Covered/Secured with Dry Gauze & Dry Gauze Roll Gauze, Secured with Tape -Aquacel Extra 1 -Hysept 1 -Optilok 5x5 1/2 0 -Optilok 6.5x10 1 BLE -Multi-Layered Wrap Application Multi-Layer Multi-Layer Comp - Bilat ($ Comp - Bilat ($ ) ) -Other kishore bilat -Multi-Layer Compression Bilat (Qty 4 1 applied) Treatment Response Procedure Procedure Tolerated Well Tolerated Well Pain Scale: 0-10 Numeric Is Patient Pain Free? No Yes Yes LLE -Description Sharp,Burning -Intensity 7 -Duration (hours) Acute -Pain Behavior Withdrawal from Touch -Pain Aggravating Factors Exercise/ Activity, Debridement -Alleviating Factors/Interventions None -Effectiveness of Alleviating Factor/ Moderately Intervention effective WC - Visit Discharge Discharge Condition Stable Stable Stable Ambulatory Status Ambulatory, Ambulatory, Walker Walker Walker Transportation Private Auto [facility] transport Medication Reconcilliation completed & No No No provided to patient/care provider Clinical Summary of Care Provided Yes Yes Yes Additional Wound Wound debrided: right lateral leg Laterality: Right Type of Debridement: Excisional debridement Anesthesia Used: 5% Lidocaine Gel and Cetacaine Depth: Down to and including healthy tissue and in the subcutaneous layer Percentage of wound debrided: 100 Instrument Used: - (Misonix ultrasonic debridement) Tissue Removed: Yellow slough, devitalized tissue Severity: Fat Layer Exposed Amount of bleeding with debridement: Mild Bleeding Controlled with: Compression and gauze Patient tolerated procedure: Patient tolerated procedure well Additional Wound Wound debrided: right medial leg Laterality: Right Type of Debridement: Excisional debridement Anesthesia Used: 5% Lidocaine Gel and Cetacaine Depth: Down to and including healthy tissue and in the subcutaneous layer Percentage of wound debrided: 100 Instrument Used: - (Misonix ultrasonic debridement) Tissue Removed: Yellow slough, devitalized tissue Severity: Fat Layer Exposed Amount of bleeding with debridement: Mild Bleeding Controlled with: Compression and gauze Patient tolerated procedure: Patient tolerated procedure well Assessment/Plan Assessment/Plan (1) Lymphedema: CODE(S): I89.0 - Lymphedema, not elsewhere classified (2) Hypertension: CODE(S): I10 - Essential (primary) hypertension QUALIFIERS: Hypertension type: primary hypertension Qualified Code(s): I10 - Essential (primary) hypertension (3) Hyperlipidemia: CODE(S): E78.5 - Hyperlipidemia, unspecified QUALIFIERS: Hyperlipidemia type: mixed hyperlipidemia Qualified Code(s): E78.2 - Mixed hyperlipidemia (4) History of DVT (deep vein thrombosis): CODE(S): Z86.718 - Personal history of other venous thrombosis and embolism (5) Venous insufficiency (chronic) (peripheral): CODE(S): I87.2 - Venous insufficiency (chronic) (peripheral) (6) Venous ulcer of left lower extremity with varicose veins: CODE(S): I83.029 - Varicose veins of left lower extremity with ulcer of unspecified site (7) Edema: CODE(S): R60.9 - Edema, unspecified QUALIFIERS: Edema type: unspecified Qualified Code(s): R60.9 - Edema, unspecified (8) 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 At home wound-care instructions: Will try using 3M compression with super absorbers and calcium alginate to bilateral lower legs with change on Tuesday or Tuesday. Due to his chronic lymphedema and being unable to don traditional compression stockings and the presence of venous ulcers on his LE b/l, it is medically necessary for him to have Circaid compression garments. These are being ordered.I suspect he is not very compliant with his lymphedema pumps and not getting adequate compression with tubigrips. Due to the delayed progress in wound healing of his venous ulcers, we discussed applying for advanced wound healing product for healing his ulcer. Due to the size of his ulcer, Theraskin application approval was requested from his insurance as it is medically necessary for salvaging his limb and healing his ulcer. He underwent 2 applications of Theraskin to this ulcer. Since applicationof Theraskin he has had much improvement in epithelialization of his ulcer even though the overall size is notsignificantly changed there is progress. Off-loading: The patient was instructed to avoid pressure and friction on the affected areas. Reposition every 2 hours at minimum. Avoid prolonged standing and/or dangling of legs. When seated, feet should be elevated at chest level. Frequent ambulation is encouraged. Encouraged lymphedema pump use. Diet: Patient encouraged to increase protein intake while taking caution to avoid high carbohydrateand/or sugar intake. Labs/cultures/imaging: Wound culture showed Pseudomonas, Escherichia hermannii, Raoultella planticola, Vancomycin Resist. E. faecalis, Alcaligenes faecalis ssp faeca, Staphylococcus cohnii urealyti and anaerobic bacteria on 06/15/24 and he completed on Levofloxacin and Augmentin. Wound culture taken today on right lateral ulcer which showed Raoultella planticola, Staph hemolyticus, staph epidermidis and morganella morganii but no anaeroobic bacteria, Levofloxacin anddoxycyline were prescribed based on culture results. Labs ordered 10/19/2024. Vitamin D was low A1C 5.4% Wound culture from 12/07/24 was positive for Providencia stuartii, Vancomycin resistant E. Faecalis, Corynebacterium striatum and completed Augmentinorally. Follow-up: Return in 1 week for wound care follow up and have dressing changed by home health Tuesday. Return sooner or report to the emergency room should symptoms worsen, or new symptoms arise. Note: [employer] speech recognition hair tinter software was used to create portions of this document. Sound-alike and misspelled words, as well as other hair tinter errors may be contained in the documentation. 12/28/24 1434 Cosigner Signature (if applicable): CC: ~ Signed [facility]03-14-2025 Progress note Author Patricia Garcia [facility] Note Date/Time December 21, 2024 1:5 0pm [facility] [address] [place] [address] Progress Note - Wound Care 12/21/24 1345 MR#: [id number] Acct: [id number] Name: ESTEBAN URBINA Rep #:[id number] : 1955 69 From: Patricia Garcia DO PCP: Dr. Patricia Garcia, DO Status:REG RCR Location: History of Present Illness Date of Service: 12/21/24 Chief Complaint: venous ulcers of left lower extremity History of Wound: Mauricio is a 69 yo gentleman who is here today for evaluation of ulcers to to his bilateral lower legs. He has been treated multiple times in [facility] at the wound healing center for similar ulcers. The left LE ulcer started after he developed increased swelling and blisters of left leg in October and the right leg started sometime at the end of October. He was seen at PCP's office a culture was taken and it was resistant to several antibiotics. He was treated initially with Levaquin but had myalgias and then was treated with doxycycline which he finished 2 days ago. He denies improvementand is having swelling to his left calf and thigh. He has been having swelling to both lower extremities for many years and it has worsened over the last few months. He has not been compliant with compression. He has had increased pain especially in the left leg. He has clear yellow drainage and redness without odor or warmth. He is anti-coagulated on coumadin. He has been washing with Dial soap and witch ifrah. He had been using Collagen at times and using Calcium Alginate and covering with ABD pads during October. He was treated with 3M compression and Aquacel Ag. He was referred to the wound center for ongoing treatment. His ulcers have moderate to heavy drainage. He was in the hospital from 11/30/22 until 12/09/22 for treatment of cellulitis andedema. He underwent treatment with Vancomycin and IV lasix and compression. Discharged on 12/09/22. He returned to his assisted living apartment on Tuesday12/21/22. Subjective Subjective Mauricio is a 69-year-old male with longstanding history of chronic venous ulcerationto the left lower extremity and now a right lower extremity venous ulcer that isnearly circumferential. Wound culture from 12/07/24 was positive for Providencia stuartii, Vancomycin resistant E. Faecalis, Corynebacterium striatum and completed Augmentin orally. His edema is a lot worse this week and he has been using ABDs and Dakins wet to dry gauze. His ulcers are generally the same if notworse this week. He is using KISHORE wraps for compression. 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 He continues to use his lymphedema pumps but continues to have pain with use of these pumps. 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 Objective Data Objective Data Vital Signs: Vital Signs Temp Pulse Resp BP O2 Del Method 96.5 F L 84 16 132/61 H Room Air 12/21/24 10:17 12/21/24 10:17 12/21/24 10:17 12/21/24 10:17 12/21/24 10:17 Oxygen Delivery Method Room Air Physical Exam Const alert, oriented x3 and no apparent distress General Appearance: cooperative and comfortable HEENT normocephalic and head/scalp atraumatic Lymph Lymphatic: lymphedema moderate Resp normal respiratory effort Effort and Inspection: able to speak in complete sentences Cardio regular rate and regular rhythm Extremity Extremity Narrative: His ulcers are painful and larger and the right lower leg remains more swollen than his left General Extremity: edema bilateral lower extremity Details: severe Skin General Skin Exam: venous stasis and dermatitis Wounds: wounds noted Wound Narrative: as in clinical panel, + odor, devitalized tissue, there is increased depth, + granulation tissue right lateral ulcer with good granulation and minimal slough Psych mental status grossly normal, thought process normal, cooperative and affect normal Debridement Note Debridement Note Wound debrided: left medial LE ulcer Laterality: Left Type of Debridement: Excisional debridement Anesthesia Used: 5% Lidocaine Gel and Cetacaine Depth: Down to and including healthy tissue and in the subcutaneous layer Percentage of wound debrided: 100 Instrument Used: - (Misonix ultrasonic debridement) Tissue Removed: Yellow slough, devitalized tissue Severity: Fat Layer Exposed Amount of bleeding with debridement: Mild Bleeding Controlled with: Compression and gauze Patient tolerated procedure: Patient tolerated procedure well Post-Debridement Measurements and Additional Note: Post-Debridement Measurements/Treatment - Nurse 1 - General Ulcer Assessment Start: 12/14/24 09:45 Freq: Status: Active Protocol: ONDINA Activity Type Activity Date Activity User E-sign Co-sign Detail Recorded Client Recorded Date Recorded By Document 12/14/24 09:45 [id number] 12/14/24 10:11 RB Document 12/21/24 10:17 [id number] 12/21/24 10:26 12/14/24 12/21/24 09:45 10:17 - Today's Visit Information Type of service Follow-up Visit Follow-up Visit (Physician/APPLICATIONS SPECIALIST (Physician/APPLICATIONS SPECIALIST ) ) Arrival Mode Ambulatory, Ambulatory, Walker Walker Transfer Assistance None Patient Identification Verified (Name & Yes Yes ) Patient Requires Transmission-Based No Precautions Vital Signs Temperature (97.8 F-99.1 F) 95.5 F L 96.5 F L Temperature Source Temporal Temporal Pulse Rate (60-100) 74 84 Pulse Location Monitor Monitor Respiratory Rate (12-18) 18 16 Respiratory rate source Observation Observation Oxygen Delivery Method Room Air Blood Pressure (90/60-120/80) 126/70 H 132/61 H Blood Pressure Mean (mm Hg) 88 84 Source Monitor Monitor Position Semi-Fowlers Semi-Fowlers Blood Pressure Location Right Arm Left Arm History Since Last Visit- (Skip if this is Patient's initial visit) Have you changed medications since your Yes No last visit? Any new allergies or adverse reactions No No Had a fall/change in ADL's that may No No increase risk of falls Signs or symptoms of abuse and/or No No neglect since last visit Have you been in the hospital since your Yes No last visit? Has dressing in place as prescribed Yes Yes Has compression in place as prescribed Yes Yes Has offloadiing in place as prescribed No N/A Experienced any changes in pain level or No No management Left Footwear Regular Shoe Regular Shoe Right Footwear Regular Shoe Regular Shoe Pain Scale: 0-10 Numeric Is Patient Pain Free? Yes Yes LLE -Description Sharp,Burning -Intensity 7 -Duration (hours) Acute -Pain Behavior Withdrawal from Touch -Pain Aggravating Factors ADL's,Exercise/ Activity, Debridement -Alleviating Factors/Interventions Medication -Effectiveness of Alleviating Factor/ Moderately Intervention effective WC - Nurse 1 - General Ulcer Measurement Start: 12/14/24 09:45 Freq: Status: Active Protocol: Activity Type Activity Date Activity User E-sign Co-sign Detail Recorded Client Recorded Date Recorded By Document 12/14/24 09:45 RB [id number] 12/14/24 10:11 RB Document 12/21/24 10:17 KW [id number] 12/21/24 10:26 KW 12/14/24 12/21/24 09:45 10:17 Wound Center Nurse 1 #23 R Lat Leg -Combined with other wound No -Current Size (cm) - Length 10.5 -Current Size (cm) - Width 10.5 -Current Size (cm) - Depth 0.2 -Total Square Cm 110.25 -Photo Taken Yes -Tunneling No -Undermining/Tunneling No -Circular Undermining No -Exudate Amt Medium -Exudate Type Serosanguineous -Wound Margin Distinct, Outline Attached -Granulation Amt Medium (34-66%) -Granulation Quality Lingle -Slough/Fibrin Yes -Necrosis Amt Small (1-33%) -Necrotic Tissue Type Adherent Slough -Structure Exposed N/A -Texture (Marie-wound Skin Appearance) Assessed, Scarring -Moisture (Marie-wound Skin Appearance) Assessed -Color (Marie-wound Skin Appearance) Assessed -Temperature (Marie-wound Skin No Abnormality Appearance) (Pt Warm) -Tenderness on Palpation (Marie-wound No Skin Appearance) -Ulcer Cleansing Wound Cleanser -Foul Odor after Cleansing No -Anesthetic Used 5% Lidocaine Gel #24 Left Lateral Leg -Combined with other wound No -Current Size (cm) - Length 10.5 3 -Current Size (cm) - Width 10.5 2.8 -Current Size (cm) - Depth 0.2 0.1 -Total Square Cm 110.25 8.4 -Date of Last Picture (Recall this 12/21/24 field) -Photo Taken Yes -Tunneling No -Undermining/Tunneling No -Circular Undermining No -Exudate Amt Medium Medium -Exudate Type Serosanguineous Serosanguineous -Wound Margin Distinct, Distinct, Outline Outline Attached Attached -Granulation Amt Medium (34-66%) Medium (34-66%) -Granulation Quality Lingle Lingle -Slough/Fibrin Yes -Necrosis Amt Medium (34-66%) Large (67-100%) -Necrotic Tissue Type Adherent Slough Adherent Slough -Structure Exposed N/A -Texture (Marie-wound Skin Appearance) Assessed, Assessed Scarring -Moisture (Marie-wound Skin Appearance) Assessed Assessed -Color (Marie-wound Skin Appearance) Assessed Assessed, Erythema, Hemosiderin Staining -Temperature (Marie-wound Skin No Abnormality No Abnormality Appearance) (Pt Warm) (Pt Warm) -Tenderness on Palpation (Marie-wound No No Skin Appearance) -Ulcer Cleansing Wound Cleanser Rinsed/ Irrigated with Saline -Foul Odor after Cleansing No No -Anesthetic Used 5% Lidocaine 5% Lidocaine Gel Gel *#22 R Medial Leg circumferential -Combined with other wound No -Current Size (cm) - Length 14.5 12 -Current Size (cm) - Width 14.5 37.4 -Current Size (cm) - Depth 0.2 0.2 -Total Square Cm 210.25 448.8 -Date of Last Picture (Recall this 12/21/24 field) -Photo Taken Yes -Tunneling No -Undermining/Tunneling No -Circular Undermining No -Exudate Amt Medium Large -Exudate Type Serosanguineous Serosanguineous -Wound Margin Thickened & Distinct, Rolled Under Outline Attached -Granulation Amt Medium (34-66%) Small (1-33%) -Granulation Quality Lingle Lingle -Slough/Fibrin Yes -Necrosis Amt Medium (34-66%) Large (67-100%) -Necrotic Tissue Type Adherent Slough Adherent Slough -Structure Exposed N/A -Texture (Marie-wound Skin Appearance) Assessed, Assessed Scarring -Moisture (Marie-wound Skin Appearance) Assessed Assessed -Color (Marie-wound Skin Appearance) Assessed Assessed, Erythema, Hemosiderin Staining -Temperature (Marie-wound Skin No Abnormality No Abnormality Appearance) (Pt Warm) (Pt Warm) -Tenderness on Palpation (Marie-wound No No Skin Appearance) -Ulcer Cleansing Wound Cleanser -Foul Odor after Cleansing No No -Anesthetic Used 5% Lidocaine 5% Lidocaine Gel Gel #18 Left medial LE cluster -Combined with other wound No -Current Size (cm) - Length 9 8.8 -Current Size (cm) - Width 15 15.5 -Current Size (cm) - Depth 0.2 0.3 -Total Square Cm 135 136.40 -Date of Last Picture (Recall this 12/21/24 field) -Photo Taken Yes -Tunneling No -Undermining/Tunneling No -Circular Undermining No -Exudate Amt Medium Medium -Exudate Type Serosanguineous Serosanguineous -Wound Margin Distinct, Distinct, Outline Outline Attached Attached -Granulation Amt Medium (34-66%) Small (1-33%) -Granulation Quality Lingle Lingle -Slough/Fibrin Yes -Necrosis Amt Medium (34-66%) Large (67-100%) -Necrotic Tissue Type Adherent Slough Adherent Slough -Structure Exposed N/A -Texture (Marie-wound Skin Appearance) Scarring Assessed -Moisture (Marie-wound Skin Appearance) Assessed Assessed -Color (Marie-wound Skin Appearance) Assessed Assessed, Erythema, Hemosiderin Staining -Temperature (Marie-wound Skin No Abnormality No Abnormality Appearance) (Pt Warm) (Pt Warm) -Tenderness on Palpation (Marie-wound No No Skin Appearance) -Ulcer Cleansing Wound Cleanser -Foul Odor after Cleansing No No -Anesthetic Used 5% Lidocaine 5% Lidocaine Gel Gel Lower Limb Edema Present Yes Right Calf (cm) 52.2 53.5 Right Ankle (cm) 29.2 30.2 Left Calf (cm) 47.5 47.0 Left Ankle (cm) 29.4 30.5 WC - Nurse 2 - General Ulcer CM Notes Start: 12/14/24 09:45 Freq: Status: Active Protocol: Activity Type Activity Date Activity User E-sign Co-sign Detail Recorded Client Recorded Date Recorded By Document 12/14/24 10:42 [id number] 12/14/24 11:03 Document 12/21/24 10:41 [id number] 12/21/24 11:10 12/14/24 12/21/24 10:42 10:41 Wound Center Nurse 2 #23 R Lat Leg -Time 10:43 -Correct Patient Yes -Correct Side, Site, Position Yes -Correct Procedure Yes -Procedure Performed Yes -Type of Procedure Debridement -Clinical Debridement Subcutaneous -Tissue Removed Subcutaneous -Tunneling No -Undermining/Tunneling No -Circular Undermining No -Wound/Ulcer Outcome Not Healed -Ulcer Cleansing Rinsed/ Irrigated with Saline -Foul Odor after Cleansing No -Bioengineered Tissue No -Bleeding Controlled with Pressure -Treatment Response Procedure Tolerated Well -Debridement - Subq, 1st 20sq cm No #24 Left Lateral Leg -Time 10:42 10:41 -Correct Patient Yes Yes -Correct Side, Site, Position Yes Yes -Correct Procedure Yes Yes -Procedure Performed Yes Yes -Type of Procedure Debridement Debridement -Clinical Debridement Subcutaneous Subcutaneous -Tissue Removed Subcutaneous -Post Debridement (cm) - Length 3.1 3.1 -Post Debridement (cm) - Width 1.9 2.3 -Post Debridement (cm) - Depth 0.1 0.1 -Total Square (Post) (cm) 5.89 7.13 -Area of Debridement (cm) - Length 3.0 3.1 -Area of Debridement (cm) - Width 1.9 2.3 -Total Square (Area) (cm) 5.70 7.13 -Tunneling No No -Undermining/Tunneling No No -Circular Undermining No No -Wound/Ulcer Outcome Not Healed Not Healed -Ulcer Cleansing Rinsed/ Rinsed/ Irrigated with Irrigated with Saline Saline -Foul Odor after Cleansing No No -Bioengineered Tissue No No -Bleeding Controlled with Pressure Pressure -Treatment Response Procedure Procedure Tolerated Well Tolerated Well -Offloading No No -Debridement - Subq, 1st 20sq cm No No *#22 R Medial Leg circumferential -Time 10:43 10:42 -Correct Patient Yes Yes -Correct Side, Site, Position Yes Yes -Correct Procedure Yes Yes -Procedure Performed Yes Yes -Type of Procedure Debridement Debridement -Clinical Debridement Subcutaneous Subcutaneous -Tissue Removed Subcutaneous Subcutaneous -Post Debridement (cm) - Length 12.0 12.0 -Post Debridement (cm) - Width 26.0 27.0 -Post Debridement (cm) - Depth 0.1 0.2 -Total Square (Post) (cm) 312.00 324.00 -Area of Debridement (cm) - Length 12.0 12.0 -Area of Debridement (cm) - Width 26.0 27.0 -Total Square (Area) (cm) 312.00 324.00 -Tunneling No No -Undermining/Tunneling No No -Circular Undermining No No -Wound/Ulcer Outcome Not Healed Not Healed -Ulcer Cleansing Rinsed/ Rinsed/ Irrigated with Irrigated with Saline Saline -Foul Odor after Cleansing No No -Bioengineered Tissue No No -Bleeding Controlled with Pressure Pressure -Treatment Response Procedure Procedure Tolerated Well Tolerated Well -Offloading No -Debridement - Subq, 1st 20sq cm No No #18 Left medial LE cluster -Time 10:43 10:43 -Correct Patient Yes Yes -Correct Side, Site, Position Yes Yes -Correct Procedure Yes Yes -Procedure Performed Yes Yes -Type of Procedure Debridement Debridement -Clinical Debridement Subcutaneous Subcutaneous -Tissue Removed Subcutaneous Subcutaneous -Post Debridement (cm) - Length 9.2 8.8 -Post Debridement (cm) - Width 12.5 14.0 -Post Debridement (cm) - Depth 0.2 0.1 -Total Square (Post) (cm) 115.00 123.20 -Area of Debridement (cm) - Length 9.2 8.8 -Area of Debridement (cm) - Width 12.5 14.0 -Total Square (Area) (cm) 115.00 123.20 -Tunneling No No -Undermining/Tunneling No No -Circular Undermining No No -Wound/Ulcer Outcome Not Healed Not Healed -Ulcer Cleansing Rinsed/ Rinsed/ Irrigated with Irrigated with Saline Saline -Foul Odor after Cleansing No No -Bioengineered Tissue No No -Bleeding Controlled with Pressure Pressure -Treatment Response Procedure Procedure Tolerated Well Tolerated Well -Offloading No -Debridement - Subq, 1st 20sq cm Yes Yes -Debridement, SubQ, ea addt'l 20sq cm 12 22 or part thereof Pain Scale: 0-10 Numeric Is Patient Pain Free? Yes Yes WC - Nurse 3 - General Ulcer D/C NN Start: 12/14/24 09:45 Freq: Status: Active Protocol: Activity Type Activity Date Activity User E-sign Co-sign Detail Recorded Client Recorded Date Recorded By Document 12/14/24 11:51 RB [id number] 12/14/24 11:54 RB Document 12/21/24 11:33 RB [id number] 12/21/24 11:34 RB Edit Result 12/21/24 11:33 RB (1) [id number] 12/21/24 11:49 RB Edit Result 12/21/24 11:33 RB (2) [id number] 12/21/24 13:06 RB (1) *#22 R Medial Leg circumferential - Primary Dressing Applied Aquacel Extra, => Aquacel Extra, Optilok 6.5x10 => Optilok 5x5 1/2, => Optilok 6.5x10 - Optilok 5x5 1/2 => 1 #18 Left medial LE cluster - Optilok 6.5x10 => 1 (2) #24 Left Lateral Leg - 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) => 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 #18 Left medial LE cluster - Optilok 5x5 1/2 => 0 12/14/24 12/21/24 11:51 11:33 Wound Care Center Nurse 3 #24 Left Lateral Leg -Ulcer Cleansing Rinsed/ Irrigated with Saline -Primary Dressing Applied Aquacel Extra, Optilok 6.5x10 -Other Dressing dakins moistened gauze / 2 ABD -Primary Dressing Covered/Secured with Dry Gauze & Roll Gauze -Aquacel Extra 1 -Optilok 6.5x10 1 -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) RANJANA 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 *#22 R Medial Leg circumferential -Ulcer Cleansing Rinsed/ Irrigated with Saline -Primary Dressing Applied Aquacel Extra, Optilok 5x5 1/2 ,Optilok 6.5x10 -Other Dressing dakins moistened gauze /ABD -Primary Dressing Covered/Secured with Dry Gauze & Roll Gauze -Aquacel Extra 1 -Optilok 5x5 1/2 1 -Optilok 6.5x10 1 #18 Left medial LE cluster -Ulcer Cleansing Rinsed/ Irrigated with Saline -Primary Dressing Applied Hysept Aquacel Extra -Other Dressing dakins moistened gauze / ABD/ kerlix -Primary Dressing Covered/Secured with Dry Gauze & Roll Gauze, Secured with Tape -Aquacel Extra 1 -Hysept 1 -Optilok 5x5 1/2 0 -Optilok 6.5x10 1 BLE -Multi-Layered Wrap Application Multi-Layer Comp - Bilat ($ ) -Other kishore bilat -Multi-Layer Compression Bilat (Qty 4 applied) Treatment Response Procedure Procedure Tolerated Well Tolerated Well Pain Scale: 0-10 Numeric Is Patient Pain Free? No Yes LLE -Description Sharp,Burning -Intensity 7 -Duration (hours) Acute -Pain Behavior Withdrawal from Touch -Pain Aggravating Factors Exercise/ Activity, Debridement -Alleviating Factors/Interventions None -Effectiveness of Alleviating Factor/ Moderately Intervention effective WC - Visit Discharge Discharge Condition Stable Stable Ambulatory Status Ambulatory, Ambulatory, Walker Walker Transportation Private Auto [facility] transport Medication Reconcilliation completed & No No provided to patient/care provider Clinical Summary of Care Provided Yes Yes Additional Wound Wound debrided: right lateral leg Laterality: Right Type of Debridement: Excisional debridement Anesthesia Used: 5% Lidocaine Gel and Cetacaine Depth: Down to and including healthy tissue and in the subcutaneous layer Percentage of wound debrided: 100 Instrument Used: - (Misonix ultrasonic debridement) Tissue Removed: Yellow slough, devitalized tissue Severity: Fat Layer Exposed Amount of bleeding with debridement: Mild Bleeding Controlled with: Compression and gauze Patient tolerated procedure: Patient tolerated procedure well Additional Wound Wound debrided: right medial leg Laterality: Right Type of Debridement: Excisional debridement Anesthesia Used: 5% Lidocaine Gel and Cetacaine Depth: Down to and including healthy tissue and in the subcutaneous layer Percentage of wound debrided: 100 Instrument Used: - (Misonix ultrasonic debridement) Tissue Removed: Yellow slough, devitalized tissue Severity: Fat Layer Exposed Amount of bleeding with debridement: Mild Bleeding Controlled with: Compression and gauze Patient tolerated procedure: Patient tolerated procedure well Assessment/Plan Assessment/Plan (1) Lymphedema: CODE(S): I89.0 - Lymphedema, not elsewhere classified (2) Hypertension: CODE(S): I10 - Essential (primary) hypertension QUALIFIERS: Hypertension type: primary hypertension Qualified Code(s): I10 - Essential (primary) hypertension (3) Hyperlipidemia: CODE(S): E78.5 - Hyperlipidemia, unspecified QUALIFIERS: Hyperlipidemia type: mixed hyperlipidemia Qualified Code(s): E78.2 - Mixed hyperlipidemia (4) History of DVT (deep vein thrombosis): CODE(S): Z86.718 - Personal history of other venous thrombosis and embolism (5) Venous insufficiency (chronic) (peripheral): CODE(S): I87.2 - Venous insufficiency (chronic) (peripheral) (6) Venous ulcer of left lower extremity with varicose veins: CODE(S): I83.029 - Varicose veins of left lower extremity with ulcer of unspecified site (7) Edema: CODE(S): R60.9 - Edema, unspecified QUALIFIERS: Edema type: unspecified Qualified Code(s): R60.9 - Edema, unspecified (8) 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 At home wound-care instructions: Will try using 3M compression with super absorbers and calcium alginate to bilateral lower legs. Due to his chronic lymphedema and being unable to don traditional compression stockings and the presence of venous ulcers on his LE b/l, it is medically necessary for him to have Circaid compression garments. These are being ordered.I suspect he is not very compliant with his lymphedema pumps and not getting adequate compression with tubigrips. Due to the delayed progress in wound healing of his venous ulcers, we discussed applying for advanced wound healing product for healing his ulcer. Due to the size of his ulcer, Theraskin application approval was requested from his insurance as it is medically necessary for salvaging his limb and healing his ulcer. He underwent 2 applications of Theraskin to this ulcer. Since applicationof Theraskin he has had much improvement in epithelialization of his ulcer even though the overall size is not significantly changed there is progress. Off-loading: The patient was instructed to avoid pressure and friction on the affected areas. Reposition every 2 hours at minimum. Avoid prolonged standing and/or dangling of legs. When seated, feet should be elevated at chest level. Frequent ambulation is encouraged. Encouraged lymphedema pump use. Diet: Patient encouraged to increase protein intake while taking caution to avoid high carbohydrate and/or sugar intake. Labs/cultures/imaging: Wound culture showed Pseudomonas, Escherichia hermannii, Raoultella planticola, Vancomycin Resist. E. faecalis, Alcaligenes faecalis ssp faeca, Staphylococcus cohnii urealyti and anaerobic bacteria on 06/15/24 and he completed on Levofloxacin and Augmentin. Wound culture taken today on right lateral ulcer which showed Raoultella planticola, Staph hemolyticus, staph epidermidis and morganella morganii but no anaeroobic bacteria, Levofloxacin anddoxycyline were prescribed based on culture results. Labs ordered 10/19/2024. Vitamin D was low A1C 5.4% Wound culture from 12/07/24 was positive for Providencia stuartii, Vancomycin resistant E. Faecalis, Corynebacterium striatum and completed Augmentin orally. Follow-up: Return in 1 week for wound care follow up and have dressing changed by home health Tuesday. Return sooner or report to the emergency room should symptoms worsen, or new symptoms arise. Note: [employer] speech recognition hair tinter software was used to create portions of this document. Sound-alike and misspelled words, as well as other hair tinter errors may be contained in the documentation. 12/21/24 1350 <Electronically signed by Patricia Garcia DO> Cosigner Signature (if applicable): CC: ~ Signed [facility] Work Phone: [phone] Progress note [facility] [address] [place] [address] Progress Note - Wound Care 12/21/24 1345 MR#: [id number] Acct: [id number] Name: ESTEBAN URBINA Rep #:[id number] : 1955 69 From: Patricia Garcia DO PCP: Dr. Patricia Garcia, Status:REG RCR Location: History of Present Illness Date of Service: 12/21/24 Chief Complaint: venous ulcers of left lower extremity History of Wound: Mauricio is a 69 yo gentleman who is here today for evaluation of ulcers to to his bilateral lower legs. [facility]. The left LE ulcer started after he developed increased swelling and blisters of left leg in Octoberand the right leg started sometime at the end of October. He was seen at PCP's office a culture was taken and it was resistant to several antibiotics. He wastreated initially with Levaquin but had myalgias and then was treated with doxycycline which he finished 2 days ago. He denies improvementand is having swelling to his left calf and thigh. He has been having swelling to both lower extremities for many years and it has worsened over the last few chirag hs. He has not been compliant with compression. He has had increased pain especially in the left leg. He has clear yellow drainage and redness without odor or warmth. He is anti- coagulated on coumadin. He has been washing with Dial soap and witch ifrah. He had been using Collagen at times and using Calcium Alginate and covering with ABD pads during October. He was treated with 3M compression and Aquacel Ag. He was referred to the wound center for ongoing treatment. His ulcers have moderate to heavy drainage. He was in the hospital from 11/30/22 until 12/09/22 for treatment of cellulitis andedema. He underwenttreatment with Vancomycin and IV lasix and compression. Discharged on 12/09/22. He returned to his assisted living apartment on Tuesday12/21/22. Subjective Subjective Mauricio is a 69-year-old male with longstanding history of chronic venous ulcerationto the left lower extremity and now a right lower extremity venous ulcer that isnearly circumferential. Wound culture from 12/07/24 was positive for Providencia stuartii, Vancomycin resistant E. Faecalis, Corynebacteriumstriatum and completed Augmentin orally. His edema is a lot worse this week and he has been using ABDs and Dakins wet to dry gauze. His ulcers are generally the same if notworse this week. He is using KISHORE wraps for compression. Mauricio has a history of bilateral DVT and chronic venous insufficiency, inaddition to lymphedema. He continues to use his lymphedema pumps but continues to have pain with use of these pumps. 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 Objective Data Objective Data Vital Signs: Vital Signs Temp Pulse Resp BP O2 Del Method 96.5 F L 84 16 132/61 H Room Air 12/21/24 10:17 12/21/24 10:17 12/21/24 10:17 12/21/24 10:17 12/21/24 10:17 Oxygen Delivery Method Room Air Physical Exam Const alert, oriented x3 and no apparent distress General Appearance: cooperative and comfortable HEENT normocephalic and head/scalp atraumatic Lymph Lymphatic: lymphedema moderate Resp normal respiratory effort Effort and Inspection: able to speak in complete sentences Cardio regular rate and regular rhythm Extremity Extremity Narrative: His ulcers are painful and larger and the right lower leg remains more swollen than his left General Extremity: edema bilateral lower extremity Details: severe Skin General Skin Exam: venous stasis and dermatitis Wounds: wounds noted Wound Narrative: as in clinical panel, + odor, devitalized tissue, there is increased depth, + granulation tissue right lateral ulcer with good granulation and minimal slough Psych mental status grossly normal, thought process normal, cooperative and affect normal Debridement Note Debridement Note Wound debrided: left medial LE ulcer Laterality: Left Type of Debridement: Excisional debridement Anesthesia Used: 5% Lidocaine Gel and Cetacaine Depth: Down to and including healthy tissue and in the subcutaneous layer Percentage of wound debrided: 100 Instrument Used: - (Misonix ultrasonic debridement) Tissue Removed: Yellow slough, devitalized tissue Severity: Fat Layer Exposed Amount of bleeding with debridement: Mild Bleeding Controlled with: Compression and gauze Patient tolerated procedure: Patient tolerated procedure well Post-Debridement Measurements and Additional Note: Post-Debridement Measurements/Treatment - Nurse 1 - General Ulcer Assessment Start: 12/14/24 09:45 Freq: Status: Active Protocol: ONDINA Activity Type Activity Date Activity User E-sign Co-sign Detail Recorded Client Recorded Date Recorded By Document 12/14/24 09:45 RB [id number] 12/14/24 10:11 RB Document 12/21/24 10:17 KW [id number] 12/21/24 10:26 KW 12/14/24 12/21/24 09:45 10:17 - Today's Visit Information Type of service Follow-up Visit Follow-up Visit (Physician/APPLICATIONS SPECIALIST (Physician/APPLICATIONS SPECIALIST ) ) Arrival Mode Ambulatory, Ambulatory, Walker Walker Transfer Assistance None Patient Identification Verified (Name & Yes Yes ) Patient Requires Transmission-Based No Precautions Vital Signs Temperature (97.8 F-99.1 F) 95.5 F L 96.5 F L Temperature Source Temporal Temporal Pulse Rate (60-100) 74 84 Pulse Location Monitor Monitor Respiratory Rate (12-18) 18 16 Respiratory rate source Observation Observation Oxygen Delivery Method Room Air Blood Pressure (90/60-120/80) 126/70 H 132/61 H Blood Pressure Mean (mm Hg) 88 84 Source Monitor Monitor Position Semi-Fowlers Semi-Fowlers Blood Pressure Location Right Arm Left Arm History Since Last Visit- (Skip if this is Patient's initial visit) Have you changed medications since your Yes No last visit? Any new allergies or adverse reactions No No Had a fall/change in ADL's that may No No increase risk of falls Signs or symptoms of abuse and/or No No neglect since last visit Have you been in the hospital since your Yes No last visit? Has dressing in place as prescribed Yes Yes Has compression in place as prescribed Yes Yes Has offloadiing in place as prescribed No N/A Experienced any changes in pain level or No No management Left Footwear Regular Shoe Regular Shoe Right Footwear Regular Shoe Regular Shoe Pain Scale: 0-10 Numeric Is Patient Pain Free? Yes Yes LLE -Description Sharp,Burning -Intensity 7 -Duration (hours) Acute -Pain Behavior Withdrawal from Touch -Pain Aggravating Factors ADL's,Exercise/ Activity, Debridement -Alleviating Factors/Interventions Medication -Effectiveness of Alleviating Factor/ Moderately Intervention effective WC - Nurse 1 - General Ulcer Measurement Start: 12/14/24 09:45 Freq: Status: Active Protocol: Activity Type Activity Date Activity User E-sign Co-sign Detail Recorded Client Recorded Date Recorded By Document 12/14/24 09:45 RB [id number] 12/14/24 10:11 RB Document 12/21/24 10:17 KW [id number] 12/21/24 10:26 KW 12/14/24 12/21/24 09:45 10:17 Wound Center Nurse 1 #23 R Lat Leg -Combined with other wound No -Current Size (cm) - Length 10.5 -Current Size (cm) - Width 10.5 -Current Size (cm) - Depth 0.2 -Total Square Cm 110.25 -Photo Taken Yes -Tunneling No -Undermining/Tunneling No -Circular Undermining No -Exudate Amt Medium -Exudate Type Serosanguineous -Wound Margin Distinct, Outline Attached -Granulation Amt Medium (34-66%) -Granulation Quality Lingle -Slough/Fibrin Yes -Necrosis Amt Small (1-33%) -Necrotic Tissue Type Adherent Slough -Structure Exposed N/A -Texture (Marie-wound Skin Appearance) Assessed, Scarring -Moisture (Marie-wound Skin Appearance) Assessed -Color (Marie-wound Skin Appearance) Assessed -Temperature (Marie-wound Skin No Abnormality Appearance) (Pt Warm) -Tenderness on Palpation (Marie-wound No Skin Appearance) -Ulcer Cleansing Wound Cleanser -Foul Odor after Cleansing No -Anesthetic Used 5% Lidocaine Gel #24 Left Lateral Leg -Combined with other wound No -Current Size (cm) - Length 10.5 3 -Current Size (cm) - Width 10.5 2.8 -Current Size (cm) - Depth 0.2 0.1 -Total Square Cm 110.25 8.4 -Date of Last Picture (Recall this 12/21/24 field) -Photo Taken Yes -Tunneling No -Undermining/Tunneling No -Circular Undermining No -Exudate Amt Medium Medium -Exudate Type Serosanguineous Serosanguineous -Wound Margin Distinct, Distinct, Outline Outline Attached Attached -Granulation Amt Medium (34-66%) Medium (34-66%) -Granulation Quality Lingle Lingle -Slough/Fibrin Yes -Necrosis Amt Medium (34-66%) Large (67-100%) -Necrotic Tissue Type Adherent Slough Adherent Slough -Structure Exposed N/A -Texture (Marie-wound Skin Appearance) Assessed, Assessed Scarring -Moisture (Marie-wound Skin Appearance) Assessed Assessed -Color (Marie-wound Skin Appearance) Assessed Assessed, Erythema, Hemosiderin Staining -Temperature (Marie-wound Skin No Abnormality No Abnormality Appearance) (Pt Warm) (Pt Warm) -Tenderness on Palpation (Marie-wound No No Skin Appearance) -Ulcer Cleansing Wound Cleanser Rinsed/ Irrigated with Saline -Foul Odor after Cleansing No No -Anesthetic Used 5% Lidocaine 5% Lidocaine Gel Gel *#22 R Medial Leg circumferential -Combined with other wound No -Current Size (cm) - Length 14.5 12 -Current Size (cm) - Width 14.5 37.4 -Current Size (cm) - Depth 0.2 0.2 -Total Square Cm 210.25 448.8 -Date of Last Picture (Recall this 12/21/24 field) -Photo Taken Yes -Tunneling No -Undermining/Tunneling No -Circular Undermining No -Exudate Amt Medium Large -Exudate Type Serosanguineous Serosanguineous -Wound Margin Thickened & Distinct, Rolled Under Outline Attached -Granulation Amt Medium (34-66%) Small (1-33%) -Granulation Quality Lingle Lingle -Slough/Fibrin Yes -Necrosis Amt Medium (34-66%) Large (67-100%) -Necrotic Tissue Type Adherent Slough Adherent Slough -Structure Exposed N/A -Texture (Marie-wound Skin Appearance) Assessed, Assessed Scarring -Moisture (Marie-wound Skin Appearance) Assessed Assessed -Color (Marie-wound Skin Appearance) Assessed Assessed, Erythema, Hemosiderin Staining -Temperature (Marie-wound Skin No Abnormality No Abnormality Appearance) (Pt Warm) (Pt Warm) -Tenderness on Palpation (Marie-wound No No Skin Appearance) -Ulcer Cleansing Wound Cleanser -Foul Odor after Cleansing No No -Anesthetic Used 5% Lidocaine 5% Lidocaine Gel Gel #18 Left medial LE cluster -Combined with other wound No -Current Size (cm) - Length 9 8.8 -Current Size (cm) - Width 15 15.5 -Current Size (cm) - Depth 0.2 0.3 -Total Square Cm 135 136.40 -Date of Last Picture (Recall this 12/21/24 field) -Photo Taken Yes -Tunneling No -Undermining/Tunneling No -Circular Undermining No -Exudate Amt Medium Medium -Exudate Type Serosanguineous Serosanguineous -Wound Margin Distinct, Distinct, Outline Outline Attached Attached -Granulation Amt Medium (34-66%) Small (1-33%) -Granulation Quality Lingle Lingle -Slough/Fibrin Yes -Necrosis Amt Medium (34-66%) Large (67-100%) -Necrotic Tissue Type Adherent Slough Adherent Slough -Structure Exposed N/A -Texture (Marie-wound Skin Appearance) Scarring Assessed -Moisture (Marie-wound Skin Appearance) Assessed Assessed -Color (Marie-wound Skin Appearance) Assessed Assessed, Erythema, Hemosiderin Staining -Temperature (Marie-wound Skin No Abnormality No Abnormality Appearance) (Pt Warm) (Pt Warm) -Tenderness on Palpation (Marie-wound No No Skin Appearance) -Ulcer Cleansing Wound Cleanser -Foul Odor after Cleansing No No -Anesthetic Used 5% Lidocaine 5% Lidocaine Gel Gel Lower Limb Edema Present Yes Right Calf (cm) 52.2 53.5 Right Ankle (cm) 29.2 30.2 Left Calf (cm) 47.5 47.0 Left Ankle (cm) 29.4 30.5 WC - Nurse 2 - General Ulcer CM Notes Start: 12/14/24 09:45 Freq: Status: Active Protocol: Activity Type Activity Date Activity User E-sign Co-sign Detail Recorded Client Recorded Date Recorded By Document 12/14/24 10:42 [id number] 12/14/24 11:03 Document 12/21/24 10:41 [id number] 12/21/24 11:10 12/14/24 12/21/24 10:42 10:41 Wound Center Nurse 2 #23 R Lat Leg -Time 10:43 -Correct Patient Yes -Correct Side, Site, Position Yes -Correct Procedure Yes -Procedure Performed Yes -Type of Procedure Debridement -Clinical Debridement Subcutaneous -Tissue Removed Subcutaneous -Tunneling No -Undermining/Tunneling No -Circular Undermining No -Wound/Ulcer Outcome Not Healed -Ulcer Cleansing Rinsed/ Irrigated with Saline -Foul Odor after Cleansing No -Bioengineered Tissue No -Bleeding Controlled with Pressure -Treatment Response Procedure Tolerated Well -Debridement - Subq, 1st 20sq cm No #24 Left Lateral Leg -Time 10:42 10:41 -Correct Patient Yes Yes -Correct Side, Site, Position Yes Yes -Correct Procedure Yes Yes -Procedure Performed Yes Yes -Type of Procedure Debridement Debridement -Clinical Debridement Subcutaneous Subcutaneous -Tissue Removed Subcutaneous -Post Debridement (cm) - Length 3.1 3.1 -Post Debridement (cm) - Width 1.9 2.3 -Post Debridement (cm) - Depth 0.1 0.1 -Total Square (Post) (cm) 5.89 7.13 -Area of Debridement (cm) - Length 3.0 3.1 -Area of Debridement (cm) - Width 1.9 2.3 -Total Square (Area) (cm) 5.70 7.13 -Tunneling No No -Undermining/Tunneling No No -Circular Undermining No No -Wound/Ulcer Outcome Not Healed Not Healed -Ulcer Cleansing Rinsed/ Rinsed/ Irrigated with Irrigated with Saline Saline -Foul Odor after Cleansing No No -Bioengineered Tissue No No -Bleeding Controlled with Pressure Pressure -Treatment Response Procedure Procedure Tolerated Well Tolerated Well -Offloading No No -Debridement - Subq, 1st 20sq cm No No *#22 R Medial Leg circumferential -Time 10:43 10:42 -Correct Patient Yes Yes -Correct Side, Site, Position Yes Yes -Correct Procedure Yes Yes -Procedure Performed Yes Yes -Type of Procedure Debridement Debridement -Clinical Debridement Subcutaneous Subcutaneous -Tissue Removed Subcutaneous Subcutaneous -Post Debridement (cm) - Length 12.0 12.0 -Post Debridement (cm) - Width 26.0 27.0 -Post Debridement (cm) - Depth 0.1 0.2 -Total Square (Post) (cm) 312.00 324.00 -Area of Debridement (cm) - Length 12.0 12.0 -Area of Debridement (cm) - Width 26.0 27.0 -Total Square (Area) (cm) 312.00 324.00 -Tunneling No No -Undermining/Tunneling No No -Circular Undermining No No -Wound/Ulcer Outcome Not Healed Not Healed -Ulcer Cleansing Rinsed/ Rinsed/ Irrigated with Irrigated with Saline Saline -Foul Odor after Cleansing No No -Bioengineered Tissue No No -Bleeding Controlled with Pressure Pressure -Treatment Response Procedure Procedure Tolerated Well Tolerated Well -Offloading No -Debridement - Subq, 1st 20sq cm No No #18 Left medial LE cluster -Time 10:43 10:43 -Correct Patient Yes Yes -Correct Side, Site, Position Yes Yes -Correct Procedure Yes Yes -Procedure Performed Yes Yes -Type of Procedure Debridement Debridement -Clinical Debridement Subcutaneous Subcutaneous -Tissue Removed Subcutaneous Subcutaneous -Post Debridement (cm) - Length 9.2 8.8 -Post Debridement (cm) - Width 12.5 14.0 -Post Debridement (cm) - Depth 0.2 0.1 -Total Square (Post) (cm) 115.00 123.20 -Area of Debridement (cm) - Length 9.2 8.8 -Area of Debridement (cm) - Width 12.5 14.0 -Total Square (Area) (cm) 115.00 123.20 -Tunneling No No -Undermining/Tunneling No No -Circular Undermining No No -Wound/Ulcer Outcome Not Healed Not Healed -Ulcer Cleansing Rinsed/ Rinsed/ Irrigated with Irrigated with Saline Saline -Foul Odor after Cleansing No No -Bioengineered Tissue No No -Bleeding Controlled with Pressure Pressure -Treatment Response Procedure Procedure Tolerated Well Tolerated Well -Offloading No -Debridement - Subq, 1st 20sq cm Yes Yes -Debridement, SubQ, ea addt'l 20sq cm 12 22 or part thereof Pain Scale: 0-10 Numeric Is Patient Pain Free? Yes Yes WC - Nurse 3 - General Ulcer D/C NN Start: 12/14/24 09:45 Freq: Status: Active Protocol: Activity Type Activity Date Activity User E-sign Co-sign Detail Recorded Client Recorded Date Recorded By Document 12/14/24 11:51 RB [id number] 12/14/24 11:54 RB Document 12/21/24 11:33 RB [id number] 12/21/24 11:34 RB Edit Result 12/21/24 11:33 RB (1) [id number] 12/21/24 11:49 RB Edit Result 12/21/24 11:33 RB (2) [id number] 12/21/24 13:06 RB (1) *#22 R Medial Leg circumferential - Primary Dressing Applied Aquacel Extra, => Aquacel Extra, Optilok 6.5x10 => Optilok 5x5 1/2, => Optilok 6.5x10 - Optilok 5x5 1/2 => 1 #18 Left medial LE cluster - Optilok 6.5x10 => 1 (2) #24 Left Lateral Leg - 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) => [employer]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 #18 Left medial LE cluster - Optilok 5x5 1/2 => 0 12/14/24 12/21/24 11:51 11:33 Wound Care Center Nurse 3 #24 Left Lateral Leg -Ulcer Cleansing Rinsed/ Irrigated with Saline -Primary Dressing Applied Aquacel Extra, Optilok 6.5x10 -Other Dressing dakins moistened gauze / 2 ABD -Primary Dressing Covered/Secured with Dry Gauze & Roll Gauze -Aquacel Extra 1 -Optilok 6.5x10 1 -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) [employer]ANJANA [employer]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 *#22 R Medial Leg circumferential -Ulcer Cleansing Rinsed/ Irrigated with Saline -Primary Dressing Applied Aquacel Extra, Optilok 5x5 1/2 ,Optilok 6.5x10 -Other Dressing dakins moistened gauze /ABD -Primary Dressing Covered/Secured with Dry Gauze & Roll Gauze -Aquacel Extra 1 -Optilok 5x5 1/2 1 -Optilok 6.5x10 1 #18 Left medial LE cluster -Ulcer Cleansing Rinsed/ Irrigated with Saline -Primary Dressing Applied Hysept Aquacel Extra -Other Dressing dakins moistened gauze / ABD/ kerlix -Primary Dressing Covered/Secured with Dry Gauze & Roll Gauze, Secured with Tape -Aquacel Extra 1 -Hysept 1 -Optilok 5x5 1/2 0 -Optilok 6.5x10 1 BLE -Multi-Layered Wrap Application Multi-Layer Comp - Bilat ($ ) -Other kishore bilat -Multi-Layer Compression Bilat (Qty 4 applied) Treatment Response Procedure Procedure Tolerated Well Tolerated Well Pain Scale: 0-10 Numeric Is Patient Pain Free? No Yes LLE -Description Sharp,Burning -Intensity 7 -Duration (hours) Acute -Pain Behavior Withdrawal from Touch -Pain Aggravating Factors Exercise/ Activity, Debridement -Alleviating Factors/Interventions None -Effectiveness of Alleviating Factor/ Moderately Intervention effective WC - Visit Discharge Discharge Condition Stable Stable Ambulatory Status Ambulatory, Ambulatory, Walker Walker Transportation Private Auto [facility] transport Medication Reconcilliation completed & No No provided to patient/care provider Clinical Summary of Care Provided Yes Yes Additional Wound Wound debrided: right lateral leg Laterality: Right Type of Debridement: Excisional debridement Anesthesia Used: 5% Lidocaine Gel and Cetacaine Depth: Down to and including healthy tissue and in the subcutaneous layer Percentage of wound debrided: 100 Instrument Used: - (Misonix ultrasonic debridement) Tissue Removed: Yellow slough, devitalized tissue Severity: Fat Layer Exposed Amount of bleeding with debridement: Mild Bleeding Controlled with: Compression and gauze Patient tolerated procedure: Patient tolerated procedure well Additional Wound Wound debrided: right medial leg Laterality: Right Type of Debridement: Excisional debridement Anesthesia Used: 5% Lidocaine Gel and Cetacaine Depth: Down to and including healthy tissue and in the subcutaneous layer Percentage of wound debrided: 100 Instrument Used: - (Misonix ultrasonic debridement) Tissue Removed: Yellow slough, devitalized tissue Severity: Fat Layer Exposed Amount of bleeding with debridement: Mild Bleeding Controlled with: Compression and gauze Patient tolerated procedure: Patient tolerated procedure well Assessment/Plan Assessment/Plan (1) Lymphedema: CODE(S): I89.0 - Lymphedema, not elsewhere classified (2) Hypertension: CODE(S): I10 - Essential (primary) hypertension QUALIFIERS: Hypertension type: primary hypertension Qualified Code(s): I10 - Essential (primary) hypertension (3) Hyperlipidemia: CODE(S): E78.5 - Hyperlipidemia, unspecified QUALIFIERS: Hyperlipidemia type: mixed hyperlipidemia Qualified Code(s): E78.2 - Mixed hyperlipidemia (4) History of DVT (deep vein thrombosis): CODE(S): Z86.718 - Personal history of other venous thrombosis and embolism (5) Venous insufficiency (chronic) (peripheral): CODE(S): I87.2 - Venous insufficiency (chronic) (peripheral) (6) Venous ulcer of left lower extremity with varicose veins: CODE(S): I83.029 - Varicose veins of left lower extremity with ulcer of unspecified site (7) Edema: CODE(S): R60.9 - Edema, unspecified QUALIFIERS: Edema type: unspecified Qualified Code(s): R60.9 - Edema, unspecified (8) 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 At home wound-care instructions: Will try using 3M compression with super absorbers and calcium alginate to bilateral lower legs. Due to his chronic lymphedema and being unable to don traditional compression stockings and the presence of venous ulcers on his LE b/l, it is medically necessary for him to have Circaid compression garments. These are being ordered.I suspect he is not very compliant with his lymphedema pumps and not getting adequate compression with tubigrips. Due to the delayed progress in wound healing of his venous ulcers, we discussed applying for advanced wound healing product for healing his ulcer. Due to the size of his ulcer, Theraskin application approval was requested from his insurance as it is medically necessary for salvaging his limb and healing his ulcer. He underwent 2 applications of Theraskin to this ulcer. Since applicationof Theraskin he has had much improvement in epithelialization of his ulcer even though the overall size is notsignificantly changed there is progress. Off-loading: The patient was instructed to avoid pressure and friction on the affected areas. Reposition every 2 hours at minimum. Avoid prolonged standing and/or dangling of legs. When seated, feet should be elevated at chest level. Frequent ambulation is encouraged. Encouraged lymphedema pump use. Diet: Patient encouraged to increase protein intake while taking caution to avoid high carbohydrateand/or sugar intake. Labs/cultures/imaging: Wound culture showed Pseudomonas, Escherichia hermannii, Raoultella planticola, Vancomycin Resist. E. faecalis, Alcaligenes faecalis ssp faeca, Staphylococcus cohnii urealyti and anaerobic bacteria on 06/15/24 and he completed on Levofloxacin and Augmentin. Wound culture taken today on right lateral ulcer which showed Raoultella planticola, Staph hemolyticus, staph epidermidis and morganella morganii but no anaeroobic bacteria, Levofloxacin anddoxycyline were prescribed based on culture results. Labs ordered 10/19/2024. Vitamin D was low A1C 5.4% Wound culture from 12/07/24 was positive for Providencia stuartii, Vancomycin resistant E. Faecalis, Corynebacterium striatum and completed Augmentinorally. Follow-up: Return in 1 week for wound care follow up and have dressing changed by home health Tuesday. Return sooner or report to the emergency room should symptoms worsen, or new symptoms arise. Note: Unir[employer] speech recognition hair tinter software was used to create portions of this document. Sound-alike and misspelled words, as well as other hair tinter errors may be contained in the documentation. 12/21/24 1350 Cosigner Signature (if applicable): CC: ~ Signed [facility]03-07-2025 Progress note Author Patricia Garcia [facility] Note Date/Time December 14, 2024 1:58 pm [facility] [address] [place] [address] Progress Note - Wound Care 12/14/24 1416 MR#: [id number] Acct: [id number] Name: ESTEBAN URBINA Rep #:[id number] : 1955 69 From: Patricia Garcia DO PCP: Dr. Patricia Garcia, DO Status:REG RCR Location: History of Present Illness Date of Service: 12/14/24 Chief Complaint: venous ulcers of left lower extremity History of Wound: Mauricio is a 69 yo gentleman who is here today for evaluation of ulcers to to his bilateral lower legs. [facility]. The left LE ulcer started after he developed increased swelling and blisters of left leg in October and the right leg started sometime at the end of October. He was seen at PCP's office a culture was taken and it was resistant to several antibiotics. He was treated initially with Levaquin but had myalgias and then was treated with doxycycline which he finished 2 days ago. He denies improvementand is having swelling to his left calf and thigh. He has been having swelling to both lower extremities for many years and it has worsened over the last few months. He has not been compliant with compression. He has had increased pain especially in the left leg. He has clear yellow drainage and redness without odor or warmth. He is anti-coagulated on coumadin. He has been washing with Dial soap and witch ifrah. He had been using Collagen at times and using Calcium Alginate and covering with ABD pads during October. He was treated with 3M compression and Aquacel Ag. He was referred to the wound center for ongoing treatment. His ulcers have moderate to heavy drainage. He was in the hospital from 11/30/22 until 12/09/22 for treatment of cellulitis andedema. He underwent treatment with Vancomycin and IV lasix and compression. Discharged on 12/09/22. He returned to his assisted living apartment on Tuesday12/21/22. Subjective Subjective Mauricio is a 69-year-old male with longstanding history of chronic venous ulcerationto the left lower extremity and now a right lower extremity venous ulcer that isnearly circumferential. Wound culture from 12/07/24 was positive for Providencia stuartii, Vancomycin resistant E. Faecalis, Corynebacterium striatum and is on Augmentin orally. His edema is a little better this week and he has been using ABDs and Dakins wet to dry gauze. His ulcers are generally the same if not worsethis week. He is using KISHORE wraps for compression. Mauricio has a history of bilateralDVT and chronic venous insufficiency, in addition to lymphedema. He continues to use his lymphedema pumps but continues to have pain with use of these pumps. 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 Objective Data Objective Data Vital Signs: Vital Signs Temp Pulse Resp BP 95.5 F L 74 18 126/70 H 12/14/24 09:45 12/14/24 09:45 12/14/24 09:45 12/14/24 09:45 Physical Exam Const alert, oriented x3 and no apparent distress General Appearance: cooperative and comfortable HEENT normocephalic and head/scalp atraumatic Lymph Lymphatic: lymphedema moderate Resp normal respiratory effort Effort and Inspection: able to speak in complete sentences Cardio regular rate and regular rhythm Extremity Extremity Narrative: His ulcers are painful and larger and the right lower leg is more swollen than his left General Extremity: edema bilateral lower extremity Details: severe Skin General Skin Exam: venous stasis and dermatitis Wounds: wounds noted Wound Narrative: as in clinical panel, + odor, devitalized tissue, there is increased depth, + granulation tissue right lateral ulcer with good granulation and minimal slough Psych mental status grossly normal, thought process normal, cooperative and affect normal Debridement Note Debridement Note Wound debrided: left medial LE ulcer Laterality: Left Type of Debridement: Excisional debridement Anesthesia Used: 5% Lidocaine Gel and Cetacaine Depth: Down to and including healthy tissue and in the subcutaneous layer Percentage of wound debrided: 100 Instrument Used: - (Misonix ultrasonic debridement) Tissue Removed: Yellow slough, devitalized tissue Severity: Fat Layer Exposed Amount of bleeding with debridement: Mild Bleeding Controlled with: Compression and gauze Patient tolerated procedure: Patient tolerated procedure well Post-Debridement Measurements and Additional Note: Post-Debridement Measurements/Treatment DEBBIE - Nurse 1 - General Ulcer Assessment Start: 12/14/24 09:45 Freq: Status: Active Protocol: ONDINA Activity Type Activity Date Activity User E-sign Co-sign Detail Recorded Client Recorded Date Recorded By Document 12/14/24 09:45 ARPIT [id number] 12/14/24 10:11 RB 12/14/24 09:45 - Today's Visit Information Type of service Follow-up Visit (Physician/APPLICATIONS SPECIALIST ) Arrival Mode Ambulatory, Walker Transfer Assistance None Patient Identification Verified (Name & Yes ) Patient Requires Transmission-Based No Precautions Vital Signs Temperature (97.8 F-99.1 F) 95.5 F L Temperature Source Temporal Pulse Rate (60-100) 74 Pulse Location Monitor Respiratory Rate (12-18) 18 Respiratory rate source Observation Blood Pressure (90/60-120/80) 126/70 H Blood Pressure Mean (mm Hg) 88 Source Monitor Position Semi-Fowlers Blood Pressure Location Right Arm History Since Last Visit- (Skip if this is Patient's initial visit) Have you changed medications since your Yes last visit? Any new allergies or adverse reactions No Had a fall/change in ADL's that may No increase risk of falls Signs or symptoms of abuse and/or No neglect since last visit Have you been in the hospital since your Yes last visit? Has dressing in place as prescribed Yes Has compression in place as prescribed Yes Has offloadiing in place as prescribed No Experienced any changes in pain level or No management Left Footwear Regular Shoe Right Footwear Regular Shoe Pain Scale: 0-10 Numeric Is Patient Pain Free? Yes LLE -Description Sharp,Burning -Intensity 7 -Duration (hours) Acute -Pain Behavior Withdrawal from Touch -Pain Aggravating Factors ADL's,Exercise/ Activity, Debridement -Alleviating Factors/Interventions Medication -Effectiveness of Alleviating Factor/ Moderately Intervention effective - Nurse 1 - General Ulcer Measurement Start: 12/14/24 09:45 Freq: Status: Active Protocol: Activity Type Activity Date Activity User E-sign Co-sign Detail Recorded Client Recorded Date Recorded By Document 12/14/24 09:45 ARPIT [id number] 12/14/24 10:11 ARPIT 12/14/24 09:45 Wound Center Nurse 1 #23 R Lat Leg -Combined with other wound No -Current Size (cm) - Length 10.5 -Current Size (cm) - Width 10.5 -Current Size (cm) - Depth 0.2 -Total Square Cm 110.25 -Photo Taken Yes -Tunneling No -Undermining/Tunneling No -Circular Undermining No -Exudate Amt Medium -Exudate Type Serosanguineous -Wound Margin Distinct, Outline Attached -Granulation Amt Medium (34-66%) -Granulation Quality Lingle -Slough/Fibrin Yes -Necrosis Amt Small (1-33%) -Necrotic Tissue Type Adherent Slough -Structure Exposed N/A -Texture (Marie-wound Skin Appearance) Assessed, Scarring -Moisture (Marie-wound Skin Appearance) Assessed -Color (Marie-wound Skin Appearance) Assessed -Temperature (Marie-wound Skin No Abnormality Appearance) (Pt Warm) -Tenderness on Palpation (Marie-wound No Skin Appearance) -Ulcer Cleansing Wound Cleanser -Foul Odor after Cleansing No -Anesthetic Used 5% Lidocaine Gel #24 Left Lateral Leg -Combined with other wound No -Current Size (cm) - Length 10.5 -Current Size (cm) - Width 10.5 -Current Size (cm) - Depth 0.2 -Total Square Cm 110.25 -Photo Taken Yes -Tunneling No -Undermining/Tunneling No -Circular Undermining No -Exudate Amt Medium -Exudate Type Serosanguineous -Wound Margin Distinct, Outline Attached -Granulation Amt Medium (34-66%) -Granulation Quality Lingle -Slough/Fibrin Yes -Necrosis Amt Medium (34-66%) -Necrotic Tissue Type Adherent Slough -Structure Exposed N/A -Texture (Marie-wound Skin Appearance) Assessed, Scarring -Moisture (Marie-wound Skin Appearance) Assessed -Color (Marie-wound Skin Appearance) Assessed -Temperature (Marie-wound Skin No Abnormality Appearance) (Pt Warm) -Tenderness on Palpation (Marie-wound No Skin Appearance) -Ulcer Cleansing Wound Cleanser -Foul Odor after Cleansing No -Anesthetic Used 5% Lidocaine Gel *#22 R Medial Leg circumferential -Combined with other wound No -Current Size (cm) - Length 14.5 -Current Size (cm) - Width 14.5 -Current Size (cm) - Depth 0.2 -Total Square Cm 210.25 -Photo Taken Yes -Tunneling No -Undermining/Tunneling No -Circular Undermining No -Exudate Amt Medium -Exudate Type Serosanguineous -Wound Margin Thickened & Rolled Under -Granulation Amt Medium (34-66%) -Granulation Quality Lingle -Slough/Fibrin Yes -Necrosis Amt Medium (34-66%) -Necrotic Tissue Type Adherent Slough -Structure Exposed N/A -Texture (Marie-wound Skin Appearance) Assessed, Scarring -Moisture (Marie-wound Skin Appearance) Assessed -Color (Marie-wound Skin Appearance) Assessed -Temperature (Marie-wound Skin No Abnormality Appearance) (Pt Warm) -Tenderness on Palpation (Marie-wound No Skin Appearance) -Ulcer Cleansing Wound Cleanser -Foul Odor after Cleansing No -Anesthetic Used 5% Lidocaine Gel #18 Left medial LE cluster -Combined with other wound No -Current Size (cm) - Length 9 -Current Size (cm) - Width 15 -Current Size (cm) - Depth 0.2 -Total Square Cm 135 -Photo Taken Yes -Tunneling No -Undermining/Tunneling No -Circular Undermining No -Exudate Amt Medium -Exudate Type Serosanguineous -Wound Margin Distinct, Outline Attached -Granulation Amt Medium (34-66%) -Granulation Quality Lingle -Slough/Fibrin Yes -Necrosis Amt Medium (34-66%) -Necrotic Tissue Type Adherent Slough -Structure Exposed N/A -Texture (Marie-wound Skin Appearance) Scarring -Moisture (Marie-wound Skin Appearance) Assessed -Color (Marie-wound Skin Appearance) Assessed -Temperature (Marie-wound Skin No Abnormality Appearance) (Pt Warm) -Tenderness on Palpation (Marie-wound No Skin Appearance) -Ulcer Cleansing Wound Cleanser -Foul Odor after Cleansing No -Anesthetic Used 5% Lidocaine Gel Lower Limb Edema Present Yes Right Calf (cm) 52.2 Right Ankle (cm) 29.2 Left Calf (cm) 47.5 Left Ankle (cm) 29.4 WC - Nurse 2 - General Ulcer CM Notes Start: 12/14/24 09:45 Freq: Status: Active Protocol: Activity Type Activity Date Activity User E-sign Co-sign Detail Recorded Client Recorded Date Recorded By Document 12/14/24 10:42 [id number] 12/14/24 11:03 12/14/24 10:42 Wound Center Nurse 2 #23 R Lat Leg -Time 10:43 -Correct Patient Yes -Correct Side, Site, Position Yes -Correct Procedure Yes -Procedure Performed Yes -Type of Procedure Debridement -Clinical Debridement Subcutaneous -Tissue Removed Subcutaneous -Tunneling No -Undermining/Tunneling No -Circular Undermining No -Wound/Ulcer Outcome Not Healed -Ulcer Cleansing Rinsed/ Irrigated with Saline -Foul Odor after Cleansing No -Bioengineered Tissue No -Bleeding Controlled with Pressure -Treatment Response Procedure Tolerated Well -Debridement - Subq, 1st 20sq cm No #24 Left Lateral Leg -Time 10:42 -Correct Patient Yes -Correct Side, Site, Position Yes -Correct Procedure Yes -Procedure Performed Yes -Type of Procedure Debridement -Clinical Debridement Subcutaneous -Tissue Removed Subcutaneous -Post Debridement (cm) - Length 3.1 -Post Debridement (cm) - Width 1.9 -Post Debridement (cm) - Depth 0.1 -Total Square (Post) (cm) 5.89 -Area of Debridement (cm) - Length 3.0 -Area of Debridement (cm) - Width 1.9 -Total Square (Area) (cm) 5.70 -Tunneling No -Undermining/Tunneling No -Circular Undermining No -Wound/Ulcer Outcome Not Healed -Ulcer Cleansing Rinsed/ Irrigated with Saline -Foul Odor after Cleansing No -Bioengineered Tissue No -Bleeding Controlled with Pressure -Treatment Response Procedure Tolerated Well -Offloading No -Debridement - Subq, 20sq cm No *#22 R Medial Leg circumferential -Time 10:43 -Correct Patient Yes -Correct Side, Site, Position Yes -Correct Procedure Yes -Procedure Performed Yes -Type of Procedure Debridement -Clinical Debridement Subcutaneous -Tissue Removed Subcutaneous -Post Debridement (cm) - Length 12.0 -Post Debridement (cm) - Width 26.0 -Post Debridement (cm) - Depth 0.1 -Total Square (Post) (cm) 312.00 -Area of Debridement (cm) - Length 12.0 -Area of Debridement (cm) - Width 26.0 -Total Square (Area) (cm) 312.00 -Tunneling No -Undermining/Tunneling No -Circular Undermining No -Wound/Ulcer Outcome Not Healed -Ulcer Cleansing Rinsed/ Irrigated with Saline -Foul Odor after Cleansing No -Bioengineered Tissue No -Bleeding Controlled with Pressure -Treatment Response Procedure Tolerated Well -Debridement - Subq, 1st 20sq cm No #18 Left medial LE cluster -Time 10:43 -Correct Patient Yes -Correct Side, Site, Position Yes -Correct Procedure Yes -Procedure Performed Yes -Type of Procedure Debridement -Clinical Debridement Subcutaneous -Tissue Removed Subcutaneous -Post Debridement (cm) - Length 9.2 -Post Debridement (cm) - Width 12.5 -Post Debridement (cm) - Depth 0.2 -Total Square (Post) (cm) 115.00 -Area of Debridement (cm) - Length 9.2 -Area of Debridement (cm) - Width 12.5 -Total Square (Area) (cm) 115.00 -Tunneling No -Undermining/Tunneling No -Circular Undermining No -Wound/Ulcer Outcome Not Healed -Ulcer Cleansing Rinsed/ Irrigated with Saline -Foul Odor after Cleansing No -Bioengineered Tissue No -Bleeding Controlled with Pressure -Treatment Response Procedure Tolerated Well -Offloading No -Debridement - Subq, 1st 20sq cm Yes -Debridement, SubQ, ea addt'l 20sq cm 12 or part thereof Pain Scale: 0-10 Numeric Is Patient Pain Free? Yes - Nurse 3 - General Ulcer D/C NN Start: 12/14/24 09:45 Freq: Status: Active Protocol: Activity Type Activity Date Activity User E-sign Co-sign Detail Recorded Client Recorded Date Recorded By Document 12/14/24 11:51 RB [id number] 12/14/24 11:54 RB 12/14/24 11:51 Wound Care Center Nurse 3 #24 Left Lateral Leg -Other Dressing dakins moistened gauze / 2 ABD -Primary Dressing Covered/Secured with Dry Gauze & Roll Gauze *#22 R Medial Leg circumferential -Other Dressing dakins moistened gauze /ABD -Primary Dressing Covered/Secured with Dry Gauze & Roll Gauze #18 Left medial LE cluster -Primary Dressing Applied Hysept -Other Dressing dakins moistened gauze / ABD/ kerlix -Hysept 1 BLE -Other kishore bilat Treatment Response Procedure Tolerated Well Pain Scale: 0-10 Numeric Is Patient Pain Free? No LLE -Description Sharp,Burning -Intensity 7 -Duration (hours) Acute -Pain Behavior Withdrawal from Touch -Pain Aggravating Factors Exercise/ Activity, Debridement -Alleviating Factors/Interventions None -Effectiveness of Alleviating Factor/ Moderately Intervention effective WC - Visit Discharge Discharge Condition Stable Ambulatory Status Ambulatory, Walker Transportation Private Auto Medication Reconcilliation completed & No provided to patient/care provider Clinical Summary of Care Provided Yes Additional Wound Wound debrided: right lateral leg Laterality: Right Type of Debridement: Excisional debridement Anesthesia Used: 5% Lidocaine Gel and Cetacaine Depth: Down to and including healthy tissue and in the subcutaneous layer Percentage of wound debrided: 100 Instrument Used: - (Misonix ultrasonic debridement) Tissue Removed: Yellow slough, devitalized tissue Severity: Fat Layer Exposed Amount of bleeding with debridement: Mild Bleeding Controlled with: Compression and gauze Patient tolerated procedure: Patient tolerated procedure well Additional Wound Wound debrided: right medial leg Laterality: Right Type of Debridement: Excisional debridement Anesthesia Used: 5% Lidocaine Gel and Cetacaine Depth: Down to and including healthy tissue and in the subcutaneous layer Percentage of wound debrided: 100 Instrument Used: - (Misonix ultrasonic debridement) Tissue Removed: Yellow slough, devitalized tissue Severity: Fat Layer Exposed Amount of bleeding with debridement: Mild Bleeding Controlled with: Compression and gauze Patient tolerated procedure: Patient tolerated procedure well Assessment/Plan Assessment/Plan (1) Lymphedema: CODE(S): I89.0 - Lymphedema, not elsewhere classified (2) Hypertension: CODE(S): I10 - Essential (primary) hypertension QUALIFIERS: Hypertension type: primary hypertension Qualified Code(s): I10 - Essential (primary) hypertension (3) Hyperlipidemia: CODE(S): E78.5 - Hyperlipidemia, unspecified QUALIFIERS: Hyperlipidemia type: mixed hyperlipidemia Qualified Code(s): E78.2 - Mixed hyperlipidemia (4) History of DVT (deep vein thrombosis): CODE(S): Z86.718 - Personal history of other venous thrombosis and embolism (5) Venous insufficiency (chronic) (peripheral): CODE(S): I87.2 - Venous insufficiency (chronic) (peripheral) (6) Venous ulcer of left lower extremity with varicose veins: CODE(S): I83.029 - Varicose veins of left lower extremity with ulcer of unspecified site (7) Edema: CODE(S): R60.9 - Edema, unspecified QUALIFIERS: Edema type: unspecified Qualified Code(s): R60.9 - Edema, unspecified (8) Venous ulcer of right lower extremity with varicose veins: CODE(S): I83.019 - Varicose veins of right lower extremity with ulcer of unspecified site; L97.919 - Non-pressure chronic ulcer of unspecified part of right lower leg with unspecified severity (9) Ulcer of left lower extremity with fat layer exposed: CODE(S): L97.922 - Non-pressure chronic ulcer of unspecified part of left lower leg with fat layer exposed PLAN: Plan Evaluation and debridement of left medial LE ulcer performed today in clinic as annotated above. At home wound-care instructions: Will have him use Dakins wet to dry gauze to his ulcers daily and wrapped with Kerlix and KISHORE bandages for compression. Due to his chronic lymphedema and being unable to don traditional compression stockings and the presence of venous ulcers on his LE b/l, it is medically necessary for him to have Circaid compression garments. These are being ordered.I suspect he is not very compliant with his lymphedema pumps and not getting adequate compression with tubigrips. Due to the delayed progress in wound healing of his venous ulcers, we discussed applying for advanced wound healing product for healing his ulcer. Due to the size of his ulcer, Theraskin application approval was requested from his insurance as it is medically necessary for salvaging his limb and healing his ulcer. He underwent 2 applications of Theraskin to this ulcer. Since applicationof Theraskin he has had much improvement in epithelialization of his ulcer even though the overall size is not significantly changed there is progress. Off-loading: The patient was instructed to avoid pressure and friction on the affected areas. Reposition every 2 hours at minimum. Avoid prolonged standing and/or dangling of legs. When seated, feet should be elevated at chest level. Frequent ambulation is encouraged. Encouraged lymphedema pump use. Diet: Patient encouraged to increase protein intake while taking caution to avoid high carbohydrate and/or sugar intake. Labs/cultures/imaging: Wound culture showed Pseudomonas, Escherichia hermannii, Raoultella planticola, Vancomycin Resist. E. faecalis, Alcaligenes faecalis ssp faeca, Staphylococcus cohnii urealyti and anaerobic bacteria on 06/15/24 and he completed on Levofloxacin and Augmentin. Wound culture taken today on right lateral ulcer which showed Raoultella planticola, Staph hemolyticus, staph epidermidis and morganella morganii but no anaeroobic bacteria, Levofloxacin anddoxycyline were prescribed based on culture results. Labs ordered 10/19/2024. Vitamin D was low A1C 5.4% Wound culture from 12/07/24 was positive for Providencia stuartii, Vancomycin resistant E. Faecalis, Corynebacterium striatum and is on Augmentin orally. Follow-up: Return in 1 week for wound care follow up and have dressing changed by home health Tuesday and Tuesday. Return sooner or report to the emergency room should symptoms worsen, or new symptoms arise. Note: [employer] speech recognition hair tinter software was used to create portions of this document. Sound-alike and misspelled words, as well as other hair tinter errors may be contained in the documentation. 12/14/24 9815 <Electronically signed by Patricia Garcia DO> Cosigner Signature (if applicable): CC: ~ Signed [facility] Work Phone: [phone] Progress note [facility] [address] [place] [address] Progress Note - Wound Care 12/14/24 1416 MR#: [id number] Acct: [id number] Name: ESTEBAN URBINA Rep #:[id number] : 1955 69 From: Patricia Garcia DO PCP: Dr. Patricia Garcia DO Status:REG RCR Location: History of Present Illness Date of Service: 12/14/24 Chief Complaint: venous ulcers of left lower extremity History of Wound: Mauricio is a 69 yo gentleman who is here today for evaluation of ulcers to to his bilateral lower legs. [facility]. The left LE ulcer started after he developed increased swelling and blisters of left leg in Octoberand the right leg started sometime at the end of October. He was seen at PCP's office a culture was taken and it was resistant to several antibiotics. He wastreated initially with Levaquin but had myalgias and then was treated with doxycycline which he finished 2 days ago. He denies improvementand is having swelling to his left calf and thigh. He has been having swelling to both lower extremities for many years and it has worsened over the last few chirag hs. He has not been compliant with compression. He has had increased pain especially in the left leg. He has clear yellow drainage and redness without odor or warmth. He is anti- coagulated on coumadin. He has been washing with Dial soap and witch ifrah. He had been using Collagen at times and using Calcium Alginate and covering with ABD pads during October. He was treated with 3M compression and Aquacel Ag. He was referred to the wound center for ongoing treatment. His ulcers have moderate to heavy drainage. He was in the hospital from 11/30/22 until 12/09/22 for treatment of cellulitis andedema. He underwenttreatment with Vancomycin and IV lasix and compression. Discharged on 12/09/22. He returned to his assisted living apartment on Tuesday12/21/22. Subjective Subjective Mauricio is a 69-year-old male with longstanding history of chronic venous ulcerationto the left lower extremity and now a right lower extremity venous ulcer that isnearly circumferential. Wound culture from 12/07/24 was positive for Providencia stuartii, Vancomycin resistant E. Faecalis, Corynebacteriumstriatum and is on Augmentin orally. His edema is a little better this week and he has been using ABDs and Dakins wet to dry gauze. His ulcers are generally the same if not worsethis week. He is using KISHORE wraps for compression. Maruicio has a history of bilateralDVT and chronic venous insufficiency, in addition to lymphedema. He continues to use his lymphedema pumps but continues to have pain with useof these pumps. 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 Objective Data Objective Data Vital Signs: Vital Signs Temp Pulse Resp BP 95.5 F L 74 18 126/70 H 12/14/24 09:45 12/14/24 09:45 12/14/24 09:45 12/14/24 09:45 Physical Exam Const alert, oriented x3 and no apparent distress General Appearance: cooperative and comfortable HEENT normocephalic and head/scalp atraumatic Lymph Lymphatic: lymphedema moderate Resp normal respiratory effort Effort and Inspection: able to speak in complete sentences Cardio regular rate and regular rhythm Extremity Extremity Narrative: His ulcers are painful and larger and the right lower leg is more swollen than his left General Extremity: edema bilateral lower extremity Details: severe Skin General Skin Exam: venous stasis and dermatitis Wounds: wounds noted Wound Narrative: as in clinical panel, + odor, devitalized tissue, there is increased depth, + granulation tissue right lateral ulcer with good granulation and minimal slough Psych mental status grossly normal, thought process normal, cooperative and affect normal Debridement Note Debridement Note Wound debrided: left medial LE ulcer Laterality: Left Type of Debridement: Excisional debridement Anesthesia Used: 5% Lidocaine Gel and Cetacaine Depth: Down to and including healthy tissue and in the subcutaneous layer Percentage of wound debrided: 100 Instrument Used: - (Misonix ultrasonic debridement) Tissue Removed: Yellow slough, devitalized tissue Severity: Fat Layer Exposed Amount of bleeding with debridement: Mild Bleeding Controlled with: Compression and gauze Patient tolerated procedure: Patient tolerated procedure well Post-Debridement Measurements and Additional Note: Post-Debridement Measurements/Treatment - Nurse 1 - General Ulcer Assessment Start: 12/14/24 09:45 Freq: Status: Active Protocol: ONDINA Activity Type Activity Date Activity User E-sign Co-sign Detail Recorded Client Recorded Date Recorded By Document 12/14/24 09:45 [email or web address] [id number] 12/14/24 10:11 RB 12/14/24 09:45 DEBBIE - Today's Visit Information Type of service Follow-up Visit (Physician/APPLICATIONS SPECIALIST ) Arrival Mode Ambulatory, Walker Transfer Assistance None Patient Identification Verified (Name & Yes ) Patient Requires Transmission-Based No Precautions Vital Signs Temperature (97.8 F-99.1 F) 95.5 F L Temperature Source Temporal Pulse Rate (60-100) 74 Pulse Location Monitor Respiratory Rate (12-18) 18 Respiratory rate source Observation Blood Pressure (90/60-120/80) 126/70 H Blood Pressure Mean (mm Hg) 88 Source Monitor Position Semi-Fowlers Blood Pressure Location Right Arm History Since Last Visit- (Skip if this is Patient's initial visit) Have you changed medications since your Yes last visit? Any new allergies or adverse reactions No Had a fall/change in ADL's that may No increase risk of falls Signs or symptoms of abuse and/or No neglect since last visit Have you been in the hospital since your Yes last visit? Has dressing in place as prescribed Yes Has compression in place as prescribed Yes Has offloadiing in place as prescribed No Experienced any changes in pain level or No management Left Footwear Regular Shoe Right Footwear Regular Shoe Pain Scale: 0-10 Numeric Is Patient Pain Free? Yes LLE -Description Sharp,Burning -Intensity 7 -Duration (hours) Acute -Pain Behavior Withdrawal from Touch -Pain Aggravating Factors ADL's,Exercise/ Activity, Debridement -Alleviating Factors/Interventions Medication -Effectiveness of Alleviating Factor/ Moderately Intervention effective WC - Nurse 1 - General Ulcer Measurement Start: 12/14/24 09:45 Freq: Status: Active Protocol: Activity Type Activity Date Activity User E-sign Co-sign Detail Recorded Client Recorded Date Recorded By Document 12/14/24 09:45 RB [id number] 12/14/24 10:11 RB 12/14/24 09:45 Wound Center Nurse 1 #23 R Lat Leg -Combined with other wound No -Current Size (cm) - Length 10.5 -Current Size (cm) - Width 10.5 -Current Size (cm) - Depth 0.2 -Total Square Cm 110.25 -Photo Taken Yes -Tunneling No -Undermining/Tunneling No -Circular Undermining No -Exudate Amt Medium -Exudate Type Serosanguineous -Wound Margin Distinct, Outline Attached -Granulation Amt Medium (34-66%) -Granulation Quality Lingle -Slough/Fibrin Yes -Necrosis Amt Small (1-33%) -Necrotic Tissue Type Adherent Slough -Structure Exposed N/A -Texture (Marie-wound Skin Appearance) Assessed, Scarring -Moisture (Marie-wound Skin Appearance) Assessed -Color (Marie-wound Skin Appearance) Assessed -Temperature (Marie-wound Skin No Abnormality Appearance) (Pt Warm) -Tenderness on Palpation (Marie-wound No Skin Appearance) -Ulcer Cleansing Wound Cleanser -Foul Odor after Cleansing No -Anesthetic Used 5% Lidocaine Gel #24 Left Lateral Leg -Combined with other wound No -Current Size (cm) - Length 10.5 -Current Size (cm) - Width 10.5 -Current Size (cm) - Depth 0.2 -Total Square Cm 110.25 -Photo Taken Yes -Tunneling No -Undermining/Tunneling No -Circular Undermining No -Exudate Amt Medium -Exudate Type Serosanguineous -Wound Margin Distinct, Outline Attached -Granulation Amt Medium (34-66%) -Granulation Quality Lingle -Slough/Fibrin Yes -Necrosis Amt Medium (34-66%) -Necrotic Tissue Type Adherent Slough -Structure Exposed N/A -Texture (Marie-wound Skin Appearance) Assessed, Scarring -Moisture (Marie-wound Skin Appearance) Assessed -Color (Marie-wound Skin Appearance) Assessed -Temperature (Marie-wound Skin No Abnormality Appearance) (Pt Warm) -Tenderness on Palpation (Marie-wound No Skin Appearance) -Ulcer Cleansing Wound Cleanser -Foul Odor after Cleansing No -Anesthetic Used 5% Lidocaine Gel *#22 R Medial Leg circumferential -Combined with other wound No -Current Size (cm) - Length 14.5 -Current Size (cm) - Width 14.5 -Current Size (cm) - Depth 0.2 -Total Square Cm 210.25 -Photo Taken Yes -Tunneling No -Undermining/Tunneling No -Circular Undermining No -Exudate Amt Medium -Exudate Type Serosanguineous -Wound Margin Thickened & Rolled Under -Granulation Amt Medium (34-66%) -Granulation Quality Lingle -Slough/Fibrin Yes -Necrosis Amt Medium (34-66%) -Necrotic Tissue Type Adherent Slough -Structure Exposed N/A -Texture (Marie-wound Skin Appearance) Assessed, Scarring -Moisture (Marie-wound Skin Appearance) Assessed -Color (Marie-wound Skin Appearance) Assessed -Temperature (Marie-wound Skin No Abnormality Appearance) (Pt Warm) -Tenderness on Palpation (Marie-wound No Skin Appearance) -Ulcer Cleansing Wound Cleanser -Foul Odor after Cleansing No -Anesthetic Used 5% Lidocaine Gel #18 Left medial LE cluster -Combined with other wound No -Current Size (cm) - Length 9 -Current Size (cm) - Width 15 -Current Size (cm) - Depth 0.2 -Total Square Cm 135 -Photo Taken Yes -Tunneling No -Undermining/Tunneling No -Circular Undermining No -Exudate Amt Medium -Exudate Type Serosanguineous -Wound Margin Distinct, Outline Attached -Granulation Amt Medium (34-66%) -Granulation Quality Lingle -Slough/Fibrin Yes -Necrosis Amt Medium (34-66%) -Necrotic Tissue Type Adherent Slough -Structure Exposed N/A -Texture (Marie-wound Skin Appearance) Scarring -Moisture (Marie-wound Skin Appearance) Assessed -Color (Marie-wound Skin Appearance) Assessed -Temperature (Marie-wound Skin No Abnormality Appearance) (Pt Warm) -Tenderness on Palpation (Marie-wound No Skin Appearance) -Ulcer Cleansing Wound Cleanser -Foul Odor after Cleansing No -Anesthetic Used 5% Lidocaine Gel Lower Limb Edema Present Yes Right Calf (cm) 52.2 Right Ankle (cm) 29.2 Left Calf (cm) 47.5 Left Ankle (cm) 29.4 WC - Nurse 2 - General Ulcer CM Notes Start: 12/14/24 09:45 Freq: Status: Active Protocol: Activity Type Activity Date Activity User E-sign Co-sign Detail Recorded Client Recorded Date Recorded By Document 12/14/24 10:42 [id number] 12/14/24 11:03 12/14/24 10:42 Wound Center Nurse 2 #23 R Lat Leg -Time 10:43 -Correct Patient Yes -Correct Side, Site, Position Yes -Correct Procedure Yes -Procedure Performed Yes -Type of Procedure Debridement -Clinical Debridement Subcutaneous -Tissue Removed Subcutaneous -Tunneling No -Undermining/Tunneling No -Circular Undermining No -Wound/Ulcer Outcome Not Healed -Ulcer Cleansing Rinsed/ Irrigated with Saline -Foul Odor after Cleansing No -Bioengineered Tissue No -Bleeding Controlled with Pressure -Treatment Response Procedure Tolerated Well -Debridement - Subq, 1st 20sq cm No #24 Left Lateral Leg -Time 10:42 -Correct Patient Yes -Correct Side, Site, Position Yes -Correct Procedure Yes -Procedure Performed Yes -Type of Procedure Debridement -Clinical Debridement Subcutaneous -Tissue Removed Subcutaneous -Post Debridement (cm) - Length 3.1 -Post Debridement (cm) - Width 1.9 -Post Debridement (cm) - Depth 0.1 -Total Square (Post) (cm) 5.89 -Area of Debridement (cm) - Length 3.0 -Area of Debridement (cm) - Width 1.9 -Total Square (Area) (cm) 5.70 -Tunneling No -Undermining/Tunneling No -Circular Undermining No -Wound/Ulcer Outcome Not Healed -Ulcer Cleansing Rinsed/ Irrigated with Saline -Foul Odor after Cleansing No -Bioengineered Tissue No -Bleeding Controlled with Pressure -Treatment Response Procedure Tolerated Well -Offloading No -Debridement - Subq, 1st 20sq cm No *#22 R Medial Leg circumferential -Time 10:43 -Correct Patient Yes -Correct Side, Site, Position Yes -Correct Procedure Yes -Procedure Performed Yes -Type of Procedure Debridement -Clinical Debridement Subcutaneous -Tissue Removed Subcutaneous -Post Debridement (cm) - Length 12.0 -Post Debridement (cm) - Width 26.0 -Post Debridement (cm) - Depth 0.1 -Total Square (Post) (cm) 312.00 -Area of Debridement (cm) - Length 12.0 -Area of Debridement (cm) - Width 26.0 -Total Square (Area) (cm) 312.00 -Tunneling No -Undermining/Tunneling No -Circular Undermining No -Wound/Ulcer Outcome Not Healed -Ulcer Cleansing Rinsed/ Irrigated with Saline -Foul Odor after Cleansing No -Bioengineered Tissue No -Bleeding Controlled with Pressure -Treatment Response Procedure Tolerated Well -Debridement - Subq, 1st 20sq cm No #18 Left medial LE cluster -Time 10:43 -Correct Patient Yes -Correct Side, Site, Position Yes -Correct Procedure Yes -Procedure Performed Yes -Type of Procedure Debridement -Clinical Debridement Subcutaneous -Tissue Removed Subcutaneous -Post Debridement (cm) - Length 9.2 -Post Debridement (cm) - Width 12.5 -Post Debridement (cm) - Depth 0.2 -Total Square (Post) (cm) 115.00 -Area of Debridement (cm) - Length 9.2 -Area of Debridement (cm) - Width 12.5 -Total Square (Area) (cm) 115.00 -Tunneling No -Undermining/Tunneling No -Circular Undermining No -Wound/Ulcer Outcome Not Healed -Ulcer Cleansing Rinsed/ Irrigated with Saline -Foul Odor after Cleansing No -Bioengineered Tissue No -Bleeding Controlled with Pressure -Treatment Response Procedure Tolerated Well -Offloading No -Debridement - Subq, 1st 20sq cm Yes -Debridement, SubQ, ea addt'l 20sq cm 12 or part thereof Pain Scale: 0-10 Numeric Is Patient Pain Free? Yes WC - Nurse 3 - General Ulcer D/C NN Start: 12/14/24 09:45 Freq: Status: Active Protocol: Activity Type Activity Date Activity User E-sign Co-sign Detail Recorded Client Recorded Date Recorded By Document 12/14/24 11:51 RB [id number] 12/14/24 11:54 RB 12/14/24 11:51 Wound Care Center Nurse 3 #24 Left Lateral Leg -Other Dressing dakins moistened gauze / 2 ABD -Primary Dressing Covered/Secured with Dry Gauze & Roll Gauze *#22 R Medial Leg circumferential -Other Dressing dakins moistened gauze /ABD -Primary Dressing Covered/Secured with Dry Gauze & Roll Gauze #18 Left medial LE cluster -Primary Dressing Applied Hysept -Other Dressing dakins moistened gauze / ABD/ kerlix -Hysept 1 BLE -Other kishore bilat Treatment Response Procedure Tolerated Well Pain Scale: 0-10 Numeric Is Patient Pain Free? No LLE -Description Sharp,Burning -Intensity 7 -Duration (hours) Acute -Pain Behavior Withdrawal from Touch -Pain Aggravating Factors Exercise/ Activity, Debridement -Alleviating Factors/Interventions None -Effectiveness of Alleviating Factor/ Moderately Intervention effective WC - Visit Discharge Discharge Condition Stable Ambulatory Status Ambulatory, Walker Transportation Private Auto Medication Reconcilliation completed & No provided to patient/care provider Clinical Summary of Care Provided Yes Additional Wound Wound debrided: right lateral leg Laterality: Right Type of Debridement: Excisional debridement Anesthesia Used: 5% Lidocaine Gel and Cetacaine Depth: Down to and including healthy tissue and in the subcutaneous layer Percentage of wound debrided: 100 Instrument Used: - (Misonix ultrasonic debridement) Tissue Removed: Yellow slough, devitalized tissue Severity: Fat Layer Exposed Amount of bleeding with debridement: Mild Bleeding Controlled with: Compression and gauze Patient tolerated procedure: Patient tolerated procedure well Additional Wound Wound debrided: right medial leg Laterality: Right Type of Debridement: Excisional debridement Anesthesia Used: 5% Lidocaine Gel and Cetacaine Depth: Down to and including healthy tissue and in the subcutaneous layer Percentage of wound debrided: 100 Instrument Used: - (Misonix ultrasonic debridement) Tissue Removed: Yellow slough, devitalized tissue Severity: Fat Layer Exposed Amount of bleeding with debridement: Mild Bleeding Controlled with: Compression and gauze Patient tolerated procedure: Patient tolerated procedure well Assessment/Plan Assessment/Plan (1) Lymphedema: CODE(S): I89.0 - Lymphedema, not elsewhere classified (2) Hypertension: CODE(S): I10 - Essential (primary) hypertension QUALIFIERS: Hypertension type: primary hypertension Qualified Code(s): I10 - Essential (primary) hypertension (3) Hyperlipidemia: CODE(S): E78.5 - Hyperlipidemia, unspecified QUALIFIERS: Hyperlipidemia type: mixed hyperlipidemia Qualified Code(s): E78.2 - Mixed hyperlipidemia (4) History of DVT (deep vein thrombosis): CODE(S): Z86.718 - Personal history of other venous thrombosis and embolism (5) Venous insufficiency (chronic) (peripheral): CODE(S): I87.2 - Venous insufficiency (chronic) (peripheral) (6) Venous ulcer of left lower extremity with varicose veins: CODE(S): I83.029 - Varicose veins of left lower extremity with ulcer of unspecified site (7) Edema: CODE(S): R60.9 - Edema, unspecified QUALIFIERS: Edema type: unspecified Qualified Code(s): R60.9 - Edema, unspecified (8) Venous ulcer of right lower extremity with varicose veins: CODE(S): I83.019 - Varicose veins of right lower extremity with ulcer of unspecified site; L97.919 - Non-pressure chronic ulcer of unspecified part of right lower leg with unspecified severity (9) Ulcer of left lower extremity with fat layer exposed: CODE(S): L97.922 - Non-pressure chronic ulcer of unspecified part of left lower leg with fat layer exposed PLAN: Plan Evaluation and debridement of left medial LE ulcer performed today in clinic as annotated above. At home wound-care instructions: Will have him use Dakins wet to dry gauze to his ulcers daily and wrapped with Kerlix and KISHORE bandages for compression. Due to his chronic lymphedema and being unable to don traditional compression stockings and the presence of venous ulcers on his LE b/l, it is medically necessary for him to have Circaid compression garments. These are being ordered.I suspect he is not very compliant with his lymphedema pumps and not getting adequate compression with tubigrips. Due to the delayed progress in wound healing of his venous ulcers, we discussed applying for advanced wound healing product for healing his ulcer. Due to the size of his ulcer, Theraskin application approval was requested from his insurance as it is medically necessary for salvaging his limb and healing his ulcer. He underwent 2 applications of Theraskin to this ulcer. Since applicationof Theraskin he has had much improvement in epithelialization of his ulcer even though the overall size is notsignificantly changed there is progress. Off-loading: The patient was instructed to avoid pressure and friction on the affected areas. Reposition every 2 hours at minimum. Avoid prolonged standing and/or dangling of legs. When seated, feet should be elevated at chest level. Frequent ambulation is encouraged. Encouraged lymphedema pump use. Diet: Patient encouraged to increase protein intake while taking caution to avoid high carbohydrateand/or sugar intake. Labs/cultures/imaging: Wound culture showed Pseudomonas, Escherichia hermannii, Raoultella planticola, Vancomycin Resist. E. faecalis, Alcaligenes faecalis ssp faeca, Staphylococcus cohnii urealyti and anaerobic bacteria on 06/15/24 and he completed on Levofloxacin and Augmentin. Wound culture taken today on right lateral ulcer which showed Raoultella planticola, Staph hemolyticus, staph epidermidis and morganella morganii but no anaeroobic bacteria, Levofloxacin anddoxycyline were prescribed based on culture results. Labs ordered 10/19/2024. Vitamin D was low A1C 5.4% Wound culture from 12/07/24 was positive for Providencia stuartii, Vancomycin resistant E. Faecalis, Corynebacterium striatum and is on Augmentin orally. Follow-up: Return in 1 week for wound care follow up and have dressing changed by home health Tuesday and Tuesday. Return sooner or report to the emergency room should symptoms worsen, or new symptoms arise. Note: [employer] speech recognition hair tinter software was used to create portions of this document. Sound-alike and misspelled words, as well as other hair tinter errors may be contained in the documentation. 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 December 07 12:53pm Cellulitis inactive December 07, 2024 12:53pm Edema inactive December 07, 2024 12:53pm Venous insufficiency inactive Febr ua 2024 12:53pm Venous ulcer of left lower extremity with varicose veins inactive Fe bruary 2024 12:53pm Venous ulcer of right lower extremity with varicose veins inactive Fe bruary 2024 12:53pm 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 December 21, 2024 12:13pm Venous ulcers of both lower extremities deleted December 21, 2024 12:13pm Hyperlipidemia chronic December 11:15am Hypertension chronic January 04, 2025 11:15am Lymphedema chronic January 04 11:15am Venous insufficiency (chroni c) (peripheral) chronic January 04, 2025 11:15am Ulcer of left lower extremit y with fat layer exposed resolved December 11:15am Edema inactive January 04 11:15am History of DVT (deep vein thrombosis) inactive January 04, 2025 11:15am Venous ulcer of left lower extremity with varicose veins inactive [facility] 2024 11:15am Venous ulcer of right lower extremity with varicose veins inactive [facility] 2024 11:15am 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 January 29, 2025 10:04am Venous ulcers of both lower extremities deleted January 29, 2025 10:04am Hyperlipidemia chronic January 9:00am Hypertension chronic February 01, 2025 9:00am Lymphedema chronic February 01 9:00am Venous insufficiency (chroni c) (peripheral) chronic February 01, 2025 9:00am Ulcer of left lower extremit y with fat layer exposed resolved January 9:00am Edema inactive February 01 9:00am History of DVT (deep vein thrombosis) inactive February 01, 2025 9:00am Venous ulcer of left lower extremity with varicose veins inactive Ap r[facility] 2024 9:00am Venous ulcer of right lower extremity with varicose veins inactive Ap r[facility] 2024 9:00am Hyperlipidemia chronic March 08, 2025 11:30am Hypertension chronic March 08 11:30am Lymphedema chronic March 08, 2025 11:30am Venous insufficiency (chroni c) (peripheral) chronic March 08, 2025 1 1:30am Ulcer of left lower extremit y with fat layer exposed resolved March 08, 2025 11:30am Edema inactive March 08, 2025 11:30am History of DVT (deep vein thrombosis) inactive March 08, 2025 1 1:30am Venous ulcer of left lower extremity with varicose veins inactive Nd y 2024 11:30am Venous ulcer of right lower extremity with varicose veins inactive Nd y 2024 11:30am Hyperlipidemia chronic April 05, 2025 11:15am Hypertension chronic April 05, 025 11:15am Lymphedema chronic April 05 11:15am Venous insufficiency (chroni c) (peripheral) chronic April 05, 2025 11:15am Ulcer of left lower extremit y with fat layer exposed resolved March 11:15am Edema inactive April 05 11:15am History of DVT (deep vein thrombosis) inactive April 05, 2025 11:15am Venous ulcer of left lower extremity with varicose veins inactive [facility] 2024 11:15am Venous ulcer of right lower extremity with varicose veins inactive [facility] 2024 11:15am [facility] Work Phone: 1(798) 221-138502-28-2025 Evaluation note* Diagnosis Onset Date Resolution Status Admit Date Hyperlipidemia chronic November 112024 9:30am Hypertension chronic November 9:30am Lymphedema chronic December 07, 2024 9:30am Venous insufficiency (chroni c) (peripheral) chronic December 07, 9:30am Ulcer of left lower extremit y with fat layer exposed resolved December 07, 2024 9:30am Edema inactive December 07, 2024 9:30am History of DVT (deep vein thrombosis) inactive December 07 9:30am Venous ulcer of left lower extremity with varicose veins inactive Fe bruary 2024 9:30am Venous ulcer of right lower extremity with varicose veins inactive bruary 2024 9:30am 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 December 07 12:53pm Cellulitis inactive December 07, 2024 12:53pm Edema inactive December 07, 2024 12:53pm Venous insufficiency inactive [facility] 2024 12:53pm Venous ulcer of left lower extremity with varicose veins inactive Fe bruary 2024 12:53pm Venous ulcer of right lower extremity with varicose veins inactive Fe bruary 2024 12:53pm 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 December 21, 2024 12:13pm Venous ulcers of both lower extremities deleted December 21, 2024 12:13pm Hyperlipidemia chronic December 11:15am Hypertension chronic January 04, 2025 11:15am Lymphedema chronic January 04 11:15am Venous insufficiency (chroni c) (peripheral) chronic January 04, 2025 11:15am Ulcer of left lower extremit y with fat layer exposed resolved December 11:15am Edema inactive January 04 11:15am History of DVT (deep vein thrombosis) inactive January 04, 2025 11:15am Venous ulcer of left lower extremity with varicose veins inactive [facility] 2024 11:15am Venous ulcer of right lower extremity with varicose veins inactive [facility] 2024 11:15am 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 January 29, 2025 10:04am Venous ulcers of both lower extremities deleted January 29, 2025 10:04am Hyperlipidemia chronic January 9:00am Hypertension chronic February 01, 2025 9:00am Lymphedema chronic February 01 9:00am Venous insufficiency (chroni c) (peripheral) chronic February 01, 2025 9:00am Ulcer of left lower extremit y with fat layer exposed resolved January 9:00am Edema inactive February 01 9:00am History of DVT (deep vein thrombosis) inactive February 01, 2025 9:00am Venous ulcer of left lower extremity with varicose veins inactive Ap ril 2024 9:00am Venous ulcer of right lower extremity with varicose veins inactive [facility] 2024 9:00am Hyperlipidemia chronic March 08, 2025 11:30am Hypertension chronic March 08 11:30am Lymphedema chronic March 08, 2025 11:30am Venous insufficiency (chroni c) (peripheral) chronic March 08, 2025 1 1:30am Ulcer of left lower extremit y with fat layer exposed resolved March 08, 2025 11:30am Edema inactive March 08, 2025 11:30am History of DVT (deep vein thrombosis) inactive March 08, 2025 1 1:30am Venous ulcer of left lower extremity with varicose veins inactive Nd y 2024 11:30am Venous ulcer of right lower extremity with varicose veins inactive Nd y 2024 11:30am [facility] Work Phone: 1(375) 644-583401-31-2025 Evaluation note* Diagnosis Onset Date Resolution Status Admit Date Hyperlipidemia chronic November 092024 9:30am Hypertension chronic October 9:30am Lymphedema chronic November 09, 2024 9:30am Venous insufficiency (chroni c) (peripheral) chronic November 09 9:30am Ulcer of left lower extremit y with fat layer exposed resolved October 122024 9:30am Edema inactive November 09, 2024 9:30am History of DVT (deep vein thrombosis) inactive November 09 9:30am Venous ulcer of left lower extremity with varicose veins inactive [facility] 2024 9:30am Venous ulcer of right lower extremity with varicose veins inactive [facility] 2024 9:30am Hyperlipidemia chronic November 112024 9:30am Hypertension chronic November 9:30am Lymphedema chronic December 07, 2024 9:30am Venous insufficiency (chroni c) (peripheral) chronic December 07 9:30am Ulcer of left lower extremit y with fat layer exposed resolved December 07, 2024 9:30am Edema inactive December 07, 2024 9:30am History of DVT (deep vein thrombosis) inactive December 07 9:30am Venous ulcer of left lower extremity with varicose veins inactive [facility] 2024 9:30am Venous ulcer of right lower extremity with varicose veins inactive [facility] 2024 9:30am 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 December 07 12:53pm Cellulitis inactive December 07, 2024 12:53pm Edema inactive December 07, 2024 12:53pm Venous insufficiency inactive [facility] 2024 12:53pm Venous ulcer of left lower extremity with varicose veins inactive [facility] 2024 12:53pm Venous ulcer of right lower extremity with varicose veins inactive [facility] 2024 12:53pm 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 December 21, 2024 12:13pm Venous ulcers of both lower extremities deleted December 21, 2024 12:13pm Hyperlipidemia chronic December 11:15am Hypertension chronic January 04, 2025 11:15am Lymphedema chronic January 04 11:15am Venous insufficiency (chroni c) (peripheral) chronic January 04, 2025 11:15am Ulcer of left lower extremit y with fat layer exposed resolved December 11:15am Edema inactive January 04 11:15am History of DVT (deep vein thrombosis) inactive January 04, 2025 11:15am Venous ulcer of left lower extremity with varicose veins inactive [facility] 2024 11:15am Venous ulcer of right lower extremity with varicose veins inactive [facility] 2024 11:15am 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 January 29, 2025 10:04am Venous ulcers of both lower extremities deleted January 29, 2025 10:04am Hyperlipidemia chronic January 9:00am Hypertension chronic February 01, 2025 9:00am Lymphedema chronic February 01 9:00am Venous insufficiency (chroni c) (peripheral) chronic February 01, 2025 9:00am Ulcer of left lower extremit y with fat layer exposed resolved January 9:00am Edema inactive February 01 9:00am History of DVT (deep vein thrombosis) inactive February 01, 2025 9:00am Venous ulcer of left lower extremity with varicose veins inactive [facility] 2024 9:00am Venous ulcer of right lower extremity with varicose veins inactive [facility] 2024 9:00am Hyperlipidemia chronic February 22, 2025 10:45am Hypertension chronic February 22 10:45am Lymphedema chronic February 22, 2025 10:45am Venous insufficiency (chroni c) (peripheral) chronic February 22, 2025 1 0:45am Ulcer of left lower extremit y with fat layer exposed resolved February 22, 2025 10:45am Edema inactive February 22, 2025 10:45am History of DVT (deep vein thrombosis) inactive February 22, 2025 1 0:45am Venous ulcer of left lower extremity with varicose veins inactive Nd y 2024 10:45am Venous ulcer of right lower extremity with varicose veins inactive Nd y 2024 10:45am [facility] Work Phone: 1(768) 888-301812-27-2024 Evaluation note* Diagnosis Onset Date Resolution Status Admit Date History of DVT (deep vein thrombosis) chronic October 05, 10:00am Hyperlipidemia chronic September 102023 10:00am Hypertension chronic September 10:00am Lymphedema chronic October 05, 2024 10:00am Venous insufficiency (chroni c) (peripheral) chronic October 05 10:00am Edema inactive October 05, 2024 10:00am Venous ulcer of left lower extremity with varicose veins inactive [facility] 2023 10:00am History of DVT (deep vein thrombosis) chronic November 09 9:30am Hyperlipidemia chronic November 092024 9:30am Hypertension chronic October 9:30am Lymphedema chronic November 09, 2024 9:30am Venous insufficiency (chroni c) (peripheral) chronic November 09 9:30am Ulcer of left lower extremit y with fat layer exposed resolved October 122024 9:30am Edema inactive November 09, 2024 9:30am Venous ulcer of left lower extremity with varicose veins inactive [facility] 2024 9:30am Venous ulcer of right lower extremity with varicose veins inactive [facility] 2024 9:30am History of DVT (deep vein thrombosis) chronic December 07 9:30am Hyperlipidemia chronic November 112024 9:30am Hypertension chronic November 9:30am Lymphedema chronic December 07, 2024 9:30am Venous insufficiency (chroni c) (peripheral) chronic December 07 9:30am Ulcer of left lower extremit y with fat layer exposed resolved December 07, 2024 9:30am Edema inactive December 07, 2024 9:30am Venous ulcer of left lower extremity with varicose veins inactive [facility] 2024 9:30am Venous ulcer of right lower extremity with varicose veins inactive [facility] 2024 9:30am 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 December 07 025 12:53pm Cellulitis inactive December 07, 2024 12:53pm Edema inactive December 07, 2024 12:53pm Venous insufficiency inactive [facility] 2024 12:53pm Venous ulcer of left lower extremity with varicose veins inactive Fe [facility] 2024 12:53pm Venous ulcer of right lower extremity with varicose veins inactive Fe [facility] 2024 12:53pm 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 December 21, 2024 12:13pm Venous ulcers of both lower extremities chronic December 21, 2024 12:13pm History of DVT (deep vein thrombosis) chronic January 04, 2025 11:15am Hyperlipidemia chronic December 11:15am Hypertension chronic January 04, 2025 11:15am Lymphedema chronic January 04 11:15am Venous insufficiency (chroni c) (peripheral) chronic January 04, 2025 11:15am Ulcer of left lower extremit y with fat layer exposed resolved December 11:15am Edema inactive January 04 11:15am Venous ulcer of left lower extremity with varicose veins inactive [facility] 2024 11:15am Venous ulcer of right lower extremity with varicose veins inactive [facility] 2024 11:15am [facility] Work Phone: 1(331) 925-859604-26-2024 Progress note Author Patricia Garcia [facility] February 03, 2024 2:17pm Note Date/Time February 03, 2024 2:1 7pm [facility] [address] [place] [id number] Progress Note - Wound Care 02/03/24 1416 MR#: [id number] Acct: [id number] Name: ESTEBAN URBINA Rep #:[id number] : 1955 68 From: Patricia Garcia DO PCP: Dr. Patricia Garcia, DO Status:[facility] Location: History of Present Illness Date of Service: 02/03/24 Chief Complaint: venous ulcers of left lower extremity History of Wound: Mauricio is a 68 yo gentleman who is here today for evaluation of ulcers to to his bilateral lower legs. [facility]. The left LE ulcer started after he developed increased swelling and blisters of left leg in October and the right leg started sometime at the end of October. He was seen at PCP's office a culture was taken and it was resistant to several antibiotics. He was treated initially with Levaquin but had myalgias and then was treated with doxycycline which he finished 2 days ago. He denies improvementand is having swelling to his left calf and thigh. He has been having swelling to both lower extremities for many years and it has worsened over the last few months. He has not been compliant with compression. He has had increased pain especially in the left leg. He has clear yellow drainage and redness without odor or warmth. He is anti-coagulated on coumadin. He has been washing with Dial soap and witch ifrah. He had been using Collagen at times and using Calcium Alginate and covering with ABD pads during October. He was treated with 3M compression and Aquacel Ag. He was referred to the wound center for ongoing treatment. His ulcers have moderate to heavy drainage. He was recently hospitalized for cellulitis and edema for the last 10 days. He was in the hospital from 11/30/22 until 12/09/22 for treatment of cellulitis and edema. He underwent treatment with Vancomycin and IV lasix and compression. Discharged on 12/09/22. He returned to his assisted living apartment on Tuesday12/21/22. Subjective Subjective Mauricio is a 68-year-old male with longstanding history of chronic venous ulcerationto the left lower extremity. He has been using Fibracol and tolerating it ok. There has been improvement in his ulcer overall. He reports significantly decreased drainage. He continues to use super absorber for heavy drainage. He does note that the ulcer is dry. He tried ABD and it was oversaturated and size F Tubigrips for compression. 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 He continues to use his lymphedema pumps but continues to have pain with use of these pumps. Objective Data Objective Data Vital Signs: Vital Signs Temp Pulse Resp BP O2 Del Method 97.5 F L 73 18 114/57 L Room Air 02/03/24 09:50 02/03/24 09:50 02/03/24 09:50 02/03/24 09:50 02/03/24 09:50 Oxygen Delivery Method Room Air Physical Exam Const alert, oriented x3 and no apparent distress General Appearance: cooperative and comfortable HEENT normocephalic and head/scalp atraumatic Lymph Lymphatic: lymphedema moderate Resp normal respiratory effort Effort and Inspection: able to speak in complete sentences Cardio regular rate and regular rhythm Extremity General Extremity: edema bilateral lower extremity Details: severe Skin Wounds: wounds noted Wound Narrative: as in clinical panel Psych mental status grossly normal, thought process normal, cooperative and affect normal Debridement Note Debridement Note Wound debrided: left medial LE ulcer Laterality: Left Type of Debridement: Excisional debridement Anesthesia Used: 4% Lidocaine Solution and Cetacaine Depth: Down to and including healthy tissue and in the subcutaneous layer Percentage of wound debrided: 100 Instrument Used: - (Misonix ultrasonic debridement) Tissue Removed: Yellow slough, devitalized tissue Severity: Fat Layer Exposed Amount of bleeding with debridement: Mild Bleeding Controlled with: Compression and gauze Patient tolerated procedure: Patient tolerated procedure well Post-Debridement Measurements and Additional Note: Post-Debridement Measurements/Treatment - Nurse 1 - General Ulcer Assessment Start: 01/13/24 11:06 Freq: Status: Active Protocol: ONDINA Activity Type Activity Date Activity User E-sign Co-sign Detail Recorded Client Recorded Date Recorded By Document 01/13/24 11:06 MT Desktop 01/13/24 11:18 MT Document 01/20/24 09:53 MT Desktop 01/20/24 09:55 MT Document 01/27/24 09:50 MT Desktop 01/27/24 09:54 MT Document 02/03/24 09:50 KW Desktop 02/03/24 09:57 KW 01/13/24 01/20/24 01/27/24 11:06 09:53 09:50 - Today's Visit Information Type of service Follow-up Visit Follow-up Visit Follow-up Visit (Physician/APPLICATIONS SPECIALIST (Physician/APPLICATIONS SPECIALIST (Physician/APPLICATIONS SPECIALIST ) ) ) Arrival Mode Ambulatory, Ambulatory, Ambulatory, Walker Walker Walker Accompanied by self self self Patient Identification Verified (Name & Yes Yes Yes ) Safety Precautions Fall Prevention Fall Prevention Fall Prevention Vital Signs Temperature (97.8 F-99.1 F) 97.4 F L 96 F L 98 F Temperature Source Temporal Temporal Temporal Pulse Rate (60-100) 68 66 57 L Pulse Location Monitor Monitor Monitor Respiratory Rate (12-18) 18 18 18 Respiratory rate source Observation Observation Observation Oxygen Delivery Method Room Air Room Air Room Air Blood Pressure (90/60-120/80) 107/65 106/54 L 121/76 H Blood Pressure Mean (mm Hg) 79 71 91 Source Monitor Monitor Monitor Position Sitting Sitting Sitting Blood Pressure Location Right Forearm Right Arm Right Arm History Since Last Visit- (Skip if this is Patient's initial visit) Have you changed medications since your last visit? Any new allergies or adverse reactions Had a fall/change in ADL's that may increase risk of falls Signs or symptoms of abuse and/or neglect since last visit Have you been in the hospital since your last visit? Has dressing in place as prescribed Yes Yes Yes Has compression in place as prescribed Yes Yes Yes Has offloadiing in place as prescribed N/A Experienced any changes in pain level or No No management Left Footwear Regular Shoe Regular Shoe Regular Shoe Right Footwear Regular Shoe Regular Shoe Regular Shoe Pain Scale: 0-10 Numeric Is Patient Pain Free? Yes Yes Yes 02/03/24 09:50 - Today's Visit Information Type of service Follow-up Visit (Physician/APPLICATIONS SPECIALIST ) Arrival Mode Ambulatory Accompanied by Patient Identification Verified (Name & Yes ) Safety Precautions Vital Signs Temperature (97.8 F-99.1 F) 97.5 F L Temperature Source Temporal Pulse Rate (60-100) 73 Pulse Location Monitor Respiratory Rate (12-18) 18 Respiratory rate source Observation Oxygen Delivery Method Room Air Blood Pressure (90/60-120/80) 114/57 L Blood Pressure Mean (mm Hg) 76 Source Monitor Position Semi-Fowlers Blood Pressure Location Right Forearm History Since Last Visit- (Skip if this is Patient's initial visit) Have you changed medications since your No last visit? Any new allergies or adverse reactions No Had a fall/change in ADL's that may No increase risk of falls Signs or symptoms of abuse and/or No neglect since last visit Have you been in the hospital since your No last visit? Has dressing in place as prescribed Yes Has compression in place as prescribed Yes Has offloadiing in place as prescribed N/A Experienced any changes in pain level or No management Left Footwear Regular Shoe Right Footwear Regular Shoe Pain Scale: 0-10 Numeric Is Patient Pain Free? Yes - Nurse 1 - General Ulcer Measurement Start: 01/13/24 11:06 Freq: Status: Active Protocol: Activity Type Activity Date Activity User E-sign Co-sign Detail Recorded Client Recorded Date Recorded By Document 01/13/24 11:06 MT Desktop 01/13/24 11:18 MT Document 01/20/24 09:53 MT Desktop 01/20/24 09:55 MT Document 01/27/24 09:50 MT Desktop 01/27/24 09:54 MT Document 02/03/24 09:50 KW Desktop 02/03/24 09:57 KW 01/13/24 01/20/24 01/27/24 11:06 09:53 09:50 Wound Center Nurse 1 #18 Left medial LE cluster -Current Size (cm) - Length 9 9 9.8 -Current Size (cm) - Width 21 16.5 15.5 -Current Size (cm) - Depth 0.1 0.1 0.2 -Total Square Cm 189 148.5 151.90 -Photo Taken No -Epithelialization -Undermining/Tunneling No -Circular Undermining No -Exudate Amt Large Medium Medium -Exudate Type Serous Sanguineous Serosanguineous -Wound Margin Flat & Intact Flat & Intact Thickened & Rolled Under -Granulation Amt Large (67-100%) Large (67-100%) Large (67-100%) -Granulation Quality Pale,Lingle Pale,Lingle Pale,Lingle -Slough/Fibrin Yes -Necrosis Amt Small (1-33%) Small (1-33%) Medium (34-66%) -Necrotic Tissue Type Adherent Slough Adherent Slough -Texture (Marie-wound Skin Appearance) Assessed Assessed, Assessed Localized Edema -Moisture (Marie-wound Skin Appearance) Assessed Assessed Assessed -Color (Marie-wound Skin Appearance) Assessed Assessed, Assessed Erythema, Hemosiderin Staining -Temperature (Marie-wound Skin No Abnormality No Abnormality No Abnormality Appearance) (Pt Warm) (Pt Warm) (Pt Warm) -Tenderness on Palpation (Marie-wound No No No Skin Appearance) -Ulcer Cleansing Soap and Water Rinsed/ Soap and Water Irrigated with Saline -Foul Odor after Cleansing No No -Anesthetic Used 4% Lidocaine 4% Lidocaine Solution Solution Left Calf (cm) 43.5 43.5 Left Ankle (cm) 29 30.5 02/03/24 09:50 Wound Center Nurse 1 #18 Left medial LE cluster -Current Size (cm) - Length 23 -Current Size (cm) - Width 7.5 -Current Size (cm) - Depth 0.1 -Total Square Cm 172.5 -Photo Taken -Epithelialization Medium 34-66% -Undermining/Tunneling -Circular Undermining -Exudate Amt Medium -Exudate Type Serosanguineous -Wound Margin Distinct, Outline Attached -Granulation Amt Large (67-100%) -Granulation Quality Red -Slough/Fibrin -Necrosis Amt Small (1-33%) -Necrotic Tissue Type Adherent Slough -Texture (Marie-wound Skin Appearance) Assessed, Localized Edema -Moisture (Marie-wound Skin Appearance) Assessed -Color (Marie-wound Skin Appearance) Assessed -Temperature (Marie-wound Skin No Abnormality Appearance) (Pt Warm) -Tenderness on Palpation (Marie-wound Skin Appearance) -Ulcer Cleansing Soap and Water -Foul Odor after Cleansing No -Anesthetic Used 4% Lidocaine Solution Left Calf (cm) Left Ankle (cm) WC - Nurse 2 - General Ulcer CM Notes Start: 01/13/24 11:06 Freq: Status: Active Protocol: Activity Type Activity Date Activity User E-sign Co-sign Detail Recorded Client Recorded Date Recorded By Document 01/13/24 11:37 GM Desktop 01/13/24 11:50 GM Edit Result 01/13/24 11:37 GM (1) Desktop 01/13/24 11:50 GM Document 01/20/24 10:19 GM Desktop 01/20/24 10:30 GM Document 01/27/24 10:03 GM Desktop 01/27/24 10:20 GM Edit Result 01/27/24 10:03 GM (2) Desktop 01/27/24 10:20 GM Document 02/03/24 10:11 GM Desktop 02/03/24 10:22 GM (1) #18 Left medial LE cluster - Debridement, SubQ, ea addt'l 20sq cm => 8 or part thereof (2) #18 Left medial LE cluster - Debridement, SubQ, ea addt'l 20sq cm => 7 or part thereof 01/13/24 01/20/24 01/27/24 11:37 10:19 10:03 Wound Center Nurse 2 #18 Left medial LE cluster -Time 11:38 10:20 10:03 -Correct Patient Yes Yes Yes -Correct Side, Site, Position Yes Yes Yes -Correct Procedure Yes Yes Yes -Procedure Performed Yes Yes Yes -Type of Procedure Debridement Debridement Debridement -Clinical Debridement Subcutaneous Subcutaneous Subcutaneous -Tissue Removed Subcutaneous Subcutaneous Subcutaneous -Post Debridement (cm) - Length 9.7 9.1 9.0 -Post Debridement (cm) - Width 18 18.5 16.5 -Post Debridement (cm) - Depth 0.1 0.1 0.1 -Total Square (Post) (cm) 174.6 168.35 148.50 -Area of Debridement (cm) - Length 9.7 9.1 9.0 -Area of Debridement (cm) - Width 18 18.5 16.5 -Total Square (Area) (cm) 174.6 168.35 148.50 -Tunneling No No No -Undermining/Tunneling No No No -Circular Undermining No No No -Wound/Ulcer Outcome Not Healed Not Healed Not Healed -Ulcer Cleansing Rinsed/ Rinsed/ Rinsed/ Irrigated with Irrigated with Irrigated with Saline Saline Saline -Foul Odor after Cleansing No No No -Bioengineered Tissue No No -Bleeding Controlled with Pressure Pressure Pressure -Treatment Response Procedure Procedure Procedure Tolerated Well Tolerated Well Tolerated Well -Debridement - Subq, 1st 20sq cm Yes Yes Yes -Debridement, SubQ, ea addt'l 20sq cm 8 8 7 or part thereof Pain Scale: 0-10 Numeric Is Patient Pain Free? Yes Yes Yes 02/03/24 10:11 Wound Center Nurse 2 #18 Left medial LE cluster -Time 10:11 -Correct Patient Yes -Correct Side, Site, Position Yes -Correct Procedure Yes -Procedure Performed Yes -Type of Procedure Debridement -Clinical Debridement Subcutaneous -Tissue Removed Subcutaneous -Post Debridement (cm) - Length 9.0 -Post Debridement (cm) - Width 17.0 -Post Debridement (cm) - Depth 0.1 -Total Square (Post) (cm) 153.00 -Area of Debridement (cm) - Length 9.0 -Area of Debridement (cm) - Width 17.0 -Total Square (Area) (cm) 153.00 -Tunneling No -Undermining/Tunneling No -Circular Undermining No -Wound/Ulcer Outcome Not Healed -Ulcer Cleansing Rinsed/ Irrigated with Saline -Foul Odor after Cleansing No -Bioengineered Tissue -Bleeding Controlled with Pressure -Treatment Response Procedure Tolerated Well -Debridement - Subq, 1st 20sq cm Yes -Debridement, SubQ, ea addt'l 20sq cm 7 or part thereof Pain Scale: 0-10 Numeric Is Patient Pain Free? Yes WC - Nurse 3 - General Ulcer D/C NN Start: 01/13/24 11:06 Freq: Status: Active Protocol: Activity Type Activity Date Activity User E-sign Co-sign Detail Recorded Client Recorded Date Recorded By Document 01/13/24 11:51 NE Desktop 01/13/24 12:08 NE Document 01/20/24 10:55 RB Desktop 01/20/24 10:57 RB Document 01/27/24 10:44 NE Desktop 01/27/24 10:48 NE Document 02/03/24 11:04 DS [id number] 02/03/24 11:08 DS 01/13/24 01/20/24 01/27/24 11:51 10:55 10:44 Wound Care Center Nurse 3 #18 Left medial LE cluster -Ulcer Cleansing Rinsed/ Rinsed/ Irrigated with Irrigated with Saline Saline -Foul Odor after Cleansing No -Negative Pressure Wound Therapy N/A -Primary Dressing Applied Aquacel Extra Aquacel Extra Aquacel Extra, Fibracol Plus 4x4,Optilok 8x12 -Other Dressing super absorber ABD -Primary Dressing Covered/Secured with Dry Gauze & Dry Gauze & Dry Gauze, Roll Gauze, Roll Gauze, Secured with Secured with Secured with Tape Tape Tape -Aquacel Extra 1 2 1 -Fibracol Plus 4x4 1 -Optilok 8x12 1 Right -Tubular Bandage Single Layer Single Layer Single Layer -Size of Tubigrip Used Size F Size F Size F -Size F ($) 1 1 1 -Other F HCS Left -Compression Wrap Kishore Wrap -Tubular Bandage Single Layer Single Layer Single Layer -Size of Tubigrip Used Size F Size F Size F -Size F ($) 1 1 1 -Other F HCS Pain Scale: 0-10 Numeric Is Patient Pain Free? Yes Yes Yes WC - Visit Discharge Discharge Condition Stable Ambulatory Status Ambulatory, Walker Transportation Private Auto Medication Reconcilliation completed & No provided to patient/care provider Clinical Summary of Care Provided Yes 02/03/24 11:04 Wound Care Center Nurse 3 #18 Left medial LE cluster -Ulcer Cleansing Rinsed/ Irrigated with Saline -Foul Odor after Cleansing -Negative Pressure Wound Therapy -Primary Dressing Applied Aquacel Extra, Fibracol Plus 4x4 -Other Dressing -Primary Dressing Covered/Secured with Dry Gauze, Secured with Tape -Aquacel Extra 1 -Fibracol Plus 4x4 1 -Optilok 8x12 Right -Tubular Bandage -Size of Tubigrip Used -Size F ($) -Other Left -Compression Wrap -Tubular Bandage -Size of Tubigrip Used -Size F ($) -Other Pain Scale: 0-10 Numeric Is Patient Pain Free? Yes WC - Visit Discharge Discharge Condition Stable Ambulatory Status Walker Transportation [facility] transport Medication Reconcilliation completed & provided to patient/care provider Clinical Summary of Care Provided Yes Assessment/Plan Assessment/Plan (1) Lymphedema: CODE(S): I89.0 - Lymphedema, not elsewhere classified (2) Hypertension: CODE(S): I10 - Essential (primary) hypertension QUALIFIERS: Hypertension type: primary hypertension Qualified Code(s): I10 - Essential (primary) hypertension (3) Hyperlipidemia: CODE(S): E78.5 - Hyperlipidemia, unspecified QUALIFIERS: Hyperlipidemia type: mixed hyperlipidemia Qualified Code(s): E78.2 - Mixed hyperlipidemia (4) History of DVT (deep vein thrombosis): CODE(S): Z86.718 - Personal history of other venous thrombosis and embolism (5) Venous insufficiency (chronic) (peripheral): CODE(S): I87.2 - Venous insufficiency (chronic) (peripheral) (6) Venous ulcer of left lower extremity with varicose veins: CODE(S): I83.029 - Varicose veins of left lower extremity with ulcer of unspecified site (7) Edema: CODE(S): R60.9 - Edema, unspecified QUALIFIERS: Edema type: unspecified Qualified Code(s): R60.9 - Edema, unspecified PLAN: Plan Evaluation and debridement of left medial LE ulcer performed today in clinic as annotated above. At home wound-care instructions: Will continue to dress his ulcers with Fibracol daily and cover with Aquacel Extra and ABD and gauze. If his ulcers aredry then would decrease frequency of changes to every other day. Continue compression with F tubigrips b/l. Due to the delayed progress in wound healing of his venous ulcers, we discussed applying for advanced wound healing product for healing his ulcer. Due to the size of his ulcer, Theraskin application approval is being requested from his insurance as it is medically necessary for salvaging his limb and healing his ulcer. He underwent 2 applications of Theraskin to this ulcer. Since applicationof Theraskin he has had much improvement in epitheliazation of his ulcer even though the overall size is not significantly changed there is progress. Off-loading: The patient was instructed to avoid pressure and friction on the affected areas. Reposition every 2 hours at minimum. Avoid prolonged standing and/or dangling of legs. When seated, feet should be elevated at chest level. Frequent ambulation is encouraged. Encouraged lymphedema pump use. Diet: Patient encouraged to increase protein intake while taking caution to avoid high carbohydrate and/or sugar intake. Labs/cultures/imaging: Wound culture showed 1+ Pseudomonas that is sensitive to Levofloxacin and completed treatment on 08/16/23. Follow-up: Return in 1 week for wound care follow up and have secondary dressingchanged by home health Tuesday and Tuesday. Return sooner or report to the emergency room should symptoms worsen, or new symptoms arise. Note: [employer] speech recognition hair tinter software was used to create portions of this document. Sound-alike and misspelled words, as well as other hair tinter errors may be contained in the documentation. 02/03/24 1417 <Electronically signed by Patricia Garcia DO> Cosigner Signature (if applicable): CC: ~ Signed [facility] Work Phone: 1([phone] 837-886504-19-2024 Progress note Author Patricia Garcia [facility] January 27, 2024 1:01pm Note Date/Time January 27, 2024 10: 46am [facility] [address] [place] [address] Progress Note - Wound Care 01/27/24 1044 MR#: [id number] Acct: [id number] Name: ESTEBAN URBINA Rep #:[id number] : 1955 68 From: Patricia Garcia DO PCP: Dr. Patricia Garcia DO Status:REG RCR Location: History of Present Illness Date of Service: 01/27/24 Chief Complaint: venous ulcers of left lower extremity History of Wound: Mauricio is a 68 yo gentleman who is here today for evaluation of ulcers to to his bilateral lower legs. [facility]. The left LE ulcer started after he developed increased swelling and blisters of left leg in October and the right leg started sometime at the end of October. He was seen at PCP's office a culture was taken and it was resistant to several antibiotics. He was treated initially with Levaquin but had myalgias and then was treated with doxycycline which he finished 2 days ago. He denies improvementand is having swelling to his left calf and thigh. He has been having swelling to both lower extremities for many years and it has worsened over the last few months. He has not been compliant with compression. He has had increased pain especially in the left leg. He has clear yellow drainage and redness without odor or warmth. He is anti-coagulated on coumadin. He has been washing with Dial soap and witch ifrah. He had been using Collagen at times and using Calcium Alginate and covering with ABD pads during October. He was treated with 3M compression and Aquacel Ag. He was referred to the wound center for ongoing treatment. His ulcers have moderate to heavy drainage. He was recently hospitalized for cellulitis and edema for the last 10 days. He was in the hospital from 11/30/22 until 12/09/22 for treatment of cellulitis and edema. He underwent treatment with Vancomycin and IV lasix and compression. Discharged on 12/09/22. He returned to his assisted living apartment on Tuesday12/21/22. Subjective Subjective Mauricio is a 68-year-old male with longstanding history of chronic venous ulcerationto the left lower extremity. He has been using Fibracol and tolerating it ok. There has been improvement in his ulcer overall. He reports significantly decreased drainage. He continues to use super absorber for heavy drainage. He does note that the ulcer is dry. He tried ABD and it was oversaturated and size F Tubigrips for compression. 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 He continues to use his lymphedema pumps but continues to have pain with use of these pumps. Objective Data Objective Data Vital Signs: Vital Signs Temp Pulse Resp BP O2 Del Method 98 F 57 L 18 121/76 H Room Air 01/27/24 09:50 01/27/24 09:50 01/27/24 09:50 01/27/24 09:50 01/27/24 09:50 Oxygen Delivery Method Room Air Physical Exam Const alert, oriented x3 and no apparent distress General Appearance: cooperative and comfortable HEENT normocephalic and head/scalp atraumatic Lymph Lymphatic: lymphedema moderate Resp normal respiratory effort Effort and Inspection: able to speak in complete sentences Cardio regular rate and regular rhythm Extremity General Extremity: edema bilateral lower extremity Details: severe Skin Wounds: wounds noted Wound Narrative: as in clinical panel Psych mental status grossly normal, thought process normal, cooperative and affect normal Debridement Note Debridement Note Wound debrided: left medial LE ulcer Laterality: Left Type of Debridement: Excisional debridement Anesthesia Used: 4% Lidocaine Solution and Cetacaine Depth: Down to and including healthy tissue and in the subcutaneous layer Percentage of wound debrided: 100 Instrument Used: - (Misonix ultrasonic debridement) Tissue Removed: Yellow slough, devitalized tissue Severity: Fat Layer Exposed Amount of bleeding with debridement: Mild Bleeding Controlled with: Compression and gauze Patient tolerated procedure: Patient tolerated procedure well Post-Debridement Measurements and Additional Note: Post-Debridement Measurements/Treatment - Nurse 1 - General Ulcer Assessment Start: 01/13/24 11:06 Freq: Status: Active Protocol: ONDINA Activity Type Activity Date Activity User E-sign Co-sign Detail Recorded Client Recorded Date Recorded By Document 01/13/24 11:06 MT Desktop 01/13/24 11:18 MT Document 01/20/24 09:53 MT Desktop 01/20/24 09:55 MT Document 01/27/24 09:50 MT Desktop 01/27/24 09:54 MT 01/13/24 01/20/24 01/27/24 11:06 09:53 09:50 - Today's Visit Information Type of service Follow-up Visit Follow-up Visit Follow-up Visit (Physician/APPLICATIONS SPECIALIST (Physician/APPLICATIONS SPECIALIST (Physician/APPLICATIONS SPECIALIST ) ) ) Arrival Mode Ambulatory, Ambulatory, Ambulatory, Walker Walker Walker Accompanied by self self self Patient Identification Verified (Name & Yes Yes Yes ) Safety Precautions Fall Prevention Fall Prevention Fall Prevention Vital Signs Temperature (97.8 F-99.1 F) 97.4 F L 96 F L 98 F Temperature Source Temporal Temporal Temporal Pulse Rate (60-100) 68 66 57 L Pulse Location Monitor Monitor Monitor Respiratory Rate (12-18) 18 18 18 Respiratory rate source Observation Observation Observation Oxygen Delivery Method Room Air Room Air Room Air Blood Pressure (90/60-120/80) 107/65 106/54 L 121/76 H Blood Pressure Mean (mm Hg) 79 71 91 Source Monitor Monitor Monitor Position Sitting Sitting Sitting Blood Pressure Location Right Forearm Right Arm Right Arm History Since Last Visit- (Skip if this is Patient's initial visit) Has dressing in place as prescribed Yes Yes Yes Has compression in place as prescribed Yes Yes Yes Has offloadiing in place as prescribed N/A Experienced any changes in pain level or No No management Left Footwear Regular Shoe Regular Shoe Regular Shoe Right Footwear Regular Shoe Regular Shoe Regular Shoe Pain Scale: 0-10 Numeric Is Patient Pain Free? Yes Yes Yes WC - Nurse 1 - General Ulcer Measurement Start: 01/13/24 11:06 Freq: Status: Active Protocol: Activity Type Activity Date Activity User E-sign Co-sign Detail Recorded Client Recorded Date Recorded By Document 01/13/24 11:06 MT [employer] 01/13/24 11:18 MT Document 01/20/24 09:53 MT Desktop 01/20/24 09:55 MT Document 01/27/24 09:50 MT [employer] 01/27/24 09:54 MT 01/13/24 01/20/24 01/27/24 11:06 09:53 09:50 Wound Center Nurse 1 #18 Left medial LE cluster -Current Size (cm) - Length 9 9 9.8 -Current Size (cm) - Width 21 16.5 15.5 -Current Size (cm) - Depth 0.1 0.1 0.2 -Total Square Cm 189 148.5 151.90 -Photo Taken No -Undermining/Tunneling No -Circular Undermining No -Exudate Amt Large Medium Medium -Exudate Type Serous Sanguineous Serosanguineous -Wound Margin Flat & Intact Flat & Intact Thickened & Rolled Under -Granulation Amt Large (67-100%) Large (67-100%) Large (67-100%) -Granulation Quality Pale,Lingle Pale,Lingle Pale,Lingle -Slough/Fibrin Yes -Necrosis Amt Small (1-33%) Small (1-33%) Medium (34-66%) -Necrotic Tissue Type Adherent Slough Adherent Slough -Texture (Marie-wound Skin Appearance) Assessed Assessed, Assessed Localized Edema -Moisture (Marie-wound Skin Appearance) Assessed Assessed Assessed -Color (Marie-wound Skin Appearance) Assessed Assessed, Assessed Erythema, Hemosiderin Staining -Temperature (Marie-wound Skin No Abnormality No Abnormality No Abnormality Appearance) (Pt Warm) (Pt Warm) (Pt Warm) -Tenderness on Palpation (Marie-wound No No No Skin Appearance) -Ulcer Cleansing Soap and Water Rinsed/ Soap and Water Irrigated with Saline -Foul Odor after Cleansing No No -Anesthetic Used 4% Lidocaine 4% Lidocaine Solution Solution Left Calf (cm) 43.5 43.5 Left Ankle (cm) 29 30.5 WC - Nurse 2 - General Ulcer CM Notes Start: 01/13/24 11:06 Freq: Status: Active Protocol: Activity Type Activity Date Activity User E-sign Co-sign Detail Recorded Client Recorded Date Recorded By Document 01/13/24 11:37 GM Desktop 01/13/24 11:50 GM Edit Result 01/13/24 11:37 GM (1) Desktop 01/13/24 11:50 GM Document 01/20/24 10:19 GM Desktop 01/20/24 10:30 GM Document 01/27/24 10:03 GM Desktop 01/27/24 10:20 GM Edit Result 01/27/24 10:03 GM (2) Desktop 01/27/24 10:20 GM (1) #18 Left medial LE cluster - Debridement, SubQ, ea addt'l 20sq cm => 8 or part thereof (2) #18 Left medial LE cluster - Debridement, SubQ, ea addt'l 20sq cm => 7 or part thereof 01/13/24 01/20/24 01/27/24 11:37 10:19 10:03 Wound Center Nurse 2 #18 Left medial LE cluster -Time 11:38 10:20 10:03 -Correct Patient Yes Yes Yes -Correct Side, Site, Position Yes Yes Yes -Correct Procedure Yes Yes Yes -Procedure Performed Yes Yes Yes -Type of Procedure Debridement Debridement Debridement -Clinical Debridement Subcutaneous Subcutaneous Subcutaneous -Tissue Removed Subcutaneous Subcutaneous Subcutaneous -Post Debridement (cm) - Length 9.7 9.1 9.0 -Post Debridement (cm) - Width 18 18.5 16.5 -Post Debridement (cm) - Depth 0.1 0.1 0.1 -Total Square (Post) (cm) 174.6 168.35 148.50 -Area of Debridement (cm) - Length 9.7 9.1 9.0 -Area of Debridement (cm) - Width 18 18.5 16.5 -Total Square (Area) (cm) 174.6 168.35 148.50 -Tunneling No No No -Undermining/Tunneling No No No -Circular Undermining No No No -Wound/Ulcer Outcome Not Healed Not Healed Not Healed -Ulcer Cleansing Rinsed/ Rinsed/ Rinsed/ Irrigated with Irrigated with Irrigated with Saline Saline Saline -Foul Odor after Cleansing No No No -Bioengineered Tissue No No -Bleeding Controlled with Pressure Pressure Pressure -Treatment Response Procedure Procedure Procedure Tolerated Well Tolerated Well Tolerated Well -Debridement - Subq, 1st 20sq cm Yes Yes Yes -Debridement, SubQ, ea addt'l 20sq cm 8 8 7 or part thereof Pain Scale: 0-10 Numeric Is Patient Pain Free? Yes Yes Yes - Nurse 3 - General Ulcer D/C NN Start: 01/13/24 11:06 Freq: Status: Active Protocol: Activity Type Activity Date Activity User E-sign Co-sign Detail Recorded Client Recorded Date Recorded By Document 01/13/24 11:51 NE [employer] 01/13/24 12:08 NE Document 01/20/24 10:55 Desktop 01/20/24 10:57 RB 01/13/24 01/20/24 11:51 10:55 Wound Care Center Nurse 3 #18 Left medial LE cluster -Ulcer Cleansing Rinsed/ Rinsed/ Irrigated with Irrigated with Saline Saline -Foul Odor after Cleansing No -Negative Pressure Wound Therapy N/A -Primary Dressing Applied Aquacel Extra Aquacel Extra -Other Dressing super absorber -Primary Dressing Covered/Secured with Dry Gauze & Dry Gauze & Roll Gauze, Roll Gauze, Secured with Secured with Tape Tape -Aquacel Extra 1 2 Right -Tubular Bandage Single Layer Single Layer -Size of Tubigrip Used Size F Size F -Size F ($) 1 1 -Other F HCS Left -Compression Wrap Kishore Wrap -Tubular Bandage Single Layer Single Layer -Size of Tubigrip Used Size F Size F -Size F ($) 1 1 -Other F HCS Pain Scale: 0-10 Numeric Is Patient Pain Free? Yes Yes - Visit Discharge Discharge Condition Stable Ambulatory Status Ambulatory, Walker Transportation Private Auto Medication Reconcilliation completed & No provided to patient/care provider Clinical Summary of Care Provided Yes Assessment/Plan Assessment/Plan (1) Lymphedema: CODE(S): I89.0 - Lymphedema, not elsewhere classified (2) Hypertension: CODE(S): I10 - Essential (primary) hypertension QUALIFIERS: Hypertension type: primary hypertension Qualified Code(s): I10 - Essential (primary) hypertension (3) Hyperlipidemia: CODE(S): E78.5 - Hyperlipidemia, unspecified QUALIFIERS: Hyperlipidemia type: mixed hyperlipidemia Qualified Code(s): E78.2 - Mixed hyperlipidemia (4) History of DVT (deep vein thrombosis): CODE(S): Z86.718 - Personal history of other venous thrombosis and embolism (5) Venous insufficiency (chronic) (peripheral): CODE(S): I87.2 - Venous insufficiency (chronic) (peripheral) (6) Venous ulcer of left lower extremity with varicose veins: CODE(S): I83.029 - Varicose veins of left lower extremity with ulcer of unspecified site (7) Edema: CODE(S): R60.9 - Edema, unspecified QUALIFIERS: Edema type: unspecified Qualified Code(s): R60.9 - Edema, unspecified PLAN: Plan Evaluation and debridement of left medial LE ulcer performed today in clinic as annotated above. At home wound-care instructions: Will continue to dress his ulcers with Fibracol daily and cover with Aquacel Extra and ABD and gauze. If his ulcers aredry then would decrease frequency of changes to every other day. Continue compression with F tubigrips b/l. Due to the delayed progress in wound healing of his venous ulcers, we discussed applying for advanced wound healing product for healing his ulcer. Due to the size of his ulcer, Theraskin application approval is being requested from his insurance as it is medically necessary for salvaging his limb and healing his ulcer. He underwent 2 applications of Theraskin to this ulcer. Since applicationof Theraskin he has had much improvement in epitheliazation of his ulcer even though the overall size is not significantly changed there is progress. Off-loading: The patient was instructed to avoid pressure and friction on the affected areas. Reposition every 2 hours at minimum. Avoid prolonged standing and/or dangling of legs. When seated, feet should be elevated at chest level. Frequent ambulation is encouraged. Encouraged lymphedema pump use. Diet: Patient encouraged to increase protein intake while taking caution to avoid high carbohydrate and/or sugar intake. Labs/cultures/imaging: Wound culture showed 1+ Pseudomonas that is sensitive to Levofloxacin and completed treatment on 08/16/23. Follow-up: Return in 1 week for wound care follow up and have secondary dressingchanged by home health Tuesday and Tuesday. Return sooner or report to the emergency room should symptoms worsen, or new symptoms arise. Note: [employer] speech recognition hair tinter software was used to create portions of this document. Sound-alike and misspelled words, as well as other hair tinter errors may be contained in the documentation. 01/27/24 1301 <Electronically signed by Patricia Garcia DO> Cosigner Signature (if applicable): CC: ~ Signed [facility] Work Phone: [phone] Progress note Author Patricia Garcia [facility] January 20, 2024 1:46pm Note Date/Time January 20, 2024 1:4 6pm [facility] [address] [place] [address] Progress Note - Wound Care 01/20/24 1343 MR#: [id number] Acct: [id number] Name: ESTEBAN URBINA Rep #:[id number] : 1955 68 From: Patricia Garcia DO PCP: Dr. Patricia Garcia, Status:REG RCR Location: History of Present Illness Date of Service: 01/20/24 Chief Complaint: venous ulcers of left lower extremity History of Wound: Mauricio is a 68 yo gentleman who is here today for evaluation of ulcers to to his bilateral lower legs. [facility]. The left LE ulcer started after he developed increased swelling and blisters of left leg in October and the right leg started sometime at the end of October. He was seen at PCP's office a culture was taken and it was resistant to several antibiotics. He was treated initially with Levaquin but had myalgias and then was treated with doxycycline which he finished 2 days ago. He denies improvementand is having swelling to his left calf and thigh. He has been having swelling to both lower extremities for many years and it has worsened over the last few months. He has not been compliant with compression. He has had increased pain especially in the left leg. He has clear yellow drainage and redness without odor or warmth. He is anti-coagulated on coumadin. He has been washing with Dial soap and witch ifrah. He had been using Collagen at times and using Calcium Alginate and covering with ABD pads during October. He was treated with 3M compression and Aquacel Ag. He was referred to the wound center for ongoing treatment. His ulcers have moderate to heavy drainage. He was recently hospitalized for cellulitis and edema for the last 10 days. He was in the hospital from 11/30/22 until 12/09/22 for treatment of cellulitis and edema. He underwent treatment with Vancomycin and IV lasix and compression. Discharged on 12/09/22. He returned to his assisted living apartment on Tuesday12/21/22. Objective Data Objective Data Vital Signs: Vital Signs Temp Pulse Resp BP O2 Del Method 96 F L 66 18 106/54 L Room Air 01/20/24 09:53 01/20/24 09:53 01/20/24 09:53 01/20/24 09:53 01/20/24 09:53 Oxygen Delivery Method Room Air Physical Exam Const alert, oriented x3 and no apparent distress General Appearance: cooperative and comfortable HEENT normocephalic and head/scalp atraumatic Lymph Lymphatic: lymphedema moderate Resp normal respiratory effort Effort and Inspection: able to speak in complete sentences Cardio regular rate and regular rhythm Extremity General Extremity: edema bilateral lower extremity Details: severe Skin Wounds: wounds noted Wound Narrative: as in clinical panel Psych mental status grossly normal, thought process normal, cooperative and affect normal Debridement Note Debridement Note Wound debrided: left medial LE ulcer Laterality: Left Type of Debridement: Excisional debridement Anesthesia Used: 4% Lidocaine Solution and Cetacaine Depth: Down to and including healthy tissue and in the subcutaneous layer Percentage of wound debrided: 100 Instrument Used: - (Misonix ultrasonic debridement) Tissue Removed: Yellow slough, devitalized tissue Severity: Fat Layer Exposed Amount of bleeding with debridement: Mild Bleeding Controlled with: Compression and gauze Patient tolerated procedure: Patient tolerated procedure well Post-Debridement Measurements and Additional Note: Post-Debridement Measurements/Treatment DEBBIE - Nurse 1 - General Ulcer Assessment Start: 01/13/24 11:06 Freq: Status: Active Protocol: ONDINA Activity Type Activity Date Activity User E-sign Co-sign Detail Recorded Client Recorded Date Recorded By Document 01/13/24 11:06 NE [employer] 01/13/24 11:18 MT Document 01/20/24 09:53 NE [employer] 01/20/24 09:55 NE 01/13/24 01/20/24 11:06 09:53 - Today's Visit Information Type of service Follow-up Visit Follow-up Visit (Physician/APPLICATIONS SPECIALIST (Physician/APPLICATIONS SPECIALIST ) ) Arrival Mode Ambulatory, Ambulatory, Walker Walker Accompanied by self self Patient Identification Verified (Name & Yes Yes ) Safety Precautions Fall Prevention Fall Prevention Vital Signs Temperature (97.8 F-99.1 F) 97.4 F L 96 F L Temperature Source Temporal Temporal Pulse Rate (60-100) 68 66 Pulse Location Monitor Monitor Respiratory Rate (12-18) 18 18 Respiratory rate source Observation Observation Oxygen Delivery Method Room Air Room Air Blood Pressure (90/60-120/80) 107/65 106/54 L Blood Pressure Mean (mm Hg) 79 71 Source Monitor Monitor Position Sitting Sitting Blood Pressure Location Right Forearm Right Arm History Since Last Visit- (Skip if this is Patient's initial visit) Has dressing in place as prescribed Yes Yes Has compression in place as prescribed Yes Yes Has offloadiing in place as prescribed N/A Experienced any changes in pain level or No management Left Footwear Regular Shoe Regular Shoe Right Footwear Regular Shoe Regular Shoe Pain Scale: 0-10 Numeric Is Patient Pain Free? Yes Yes - Nurse 1 - General Ulcer Measurement Start: 01/13/24 11:06 Freq: Status: Active Protocol: Activity Type Activity Date Activity User E-sign Co-sign Detail Recorded Client Recorded Date Recorded By Document 01/13/24 11:06 NE [employer] 01/13/24 11:18 NE Document 01/20/24 09:53 NE [employer] 01/20/24 09:55 MT 01/13/24 01/20/24 11:06 09:53 Wound Center Nurse 1 #18 Left medial LE cluster -Current Size (cm) - Length 9 9 -Current Size (cm) - Width 21 16.5 -Current Size (cm) - Depth 0.1 0.1 -Total Square Cm 189 148.5 -Exudate Amt Large Medium -Exudate Type Serous Sanguineous -Wound Margin Flat & Intact Flat & Intact -Granulation Amt Large (67-100%) Large (67-100%) -Granulation Quality Pale,Lingle Pale,Lingle -Slough/Fibrin Yes -Necrosis Amt Small (1-33%) Small (1-33%) -Necrotic Tissue Type Adherent Slough -Texture (Marie-wound Skin Appearance) Assessed Assessed, Localized Edema -Moisture (Marie-wound Skin Appearance) Assessed Assessed -Color (Marie-wound Skin Appearance) Assessed Assessed, Erythema, Hemosiderin Staining -Temperature (Marie-wound Skin No Abnormality No Abnormality Appearance) (Pt Warm) (Pt Warm) -Tenderness on Palpation (Marie-wound No No Skin Appearance) -Ulcer Cleansing Soap and Water Rinsed/ Irrigated with Saline -Foul Odor after Cleansing No -Anesthetic Used 4% Lidocaine Solution Left Calf (cm) 43.5 Left Ankle (cm) 29 WC - Nurse 2 - General Ulcer CM Notes Start: 01/13/24 11:06 Freq: Status: Active Protocol: Activity Type Activity Date Activity User E-sign Co-sign Detail Recorded Client Recorded Date Recorded By Document 01/13/24 11:37 GM Desktop 01/13/24 11:50 GM Edit Result 01/13/24 11:37 GM (1) Desktop 01/13/24 11:50 GM Document 01/20/24 10:19 GM Desktop 01/20/24 10:30 GM (1) #18 Left medial LE cluster - Debridement, SubQ, ea addt'l 20sq cm => 8 or part thereof 01/13/24 01/20/24 11:37 10:19 Wound Center Nurse 2 #18 Left medial LE cluster -Time 11:38 10:20 -Correct Patient Yes Yes -Correct Side, Site, Position Yes Yes -Correct Procedure Yes Yes -Procedure Performed Yes Yes -Type of Procedure Debridement Debridement -Clinical Debridement Subcutaneous Subcutaneous -Tissue Removed Subcutaneous Subcutaneous -Post Debridement (cm) - Length 9.7 9.1 -Post Debridement (cm) - Width 18 18.5 -Post Debridement (cm) - Depth 0.1 0.1 -Total Square (Post) (cm) 174.6 168.35 -Area of Debridement (cm) - Length 9.7 9.1 -Area of Debridement (cm) - Width 18 18.5 -Total Square (Area) (cm) 174.6 168.35 -Tunneling No No -Undermining/Tunneling No No -Circular Undermining No No -Wound/Ulcer Outcome Not Healed Not Healed -Ulcer Cleansing Rinsed/ Rinsed/ Irrigated with Irrigated with Saline Saline -Foul Odor after Cleansing No No -Bioengineered Tissue No -Bleeding Controlled with Pressure Pressure -Treatment Response Procedure Procedure Tolerated Well Tolerated Well -Debridement - Subq, 1st 20sq cm Yes Yes -Debridement, SubQ, ea addt'l 20sq cm 8 8 or part thereof Pain Scale: 0-10 Numeric Is Patient Pain Free? Yes Yes - Nurse 3 - General Ulcer D/C NN Start: 01/13/24 11:06 Freq: Status: Active Protocol: Activity Type Activity Date Activity User E-sign Co-sign Detail Recorded Client Recorded Date Recorded By Document 01/13/24 11:51 MT Desktop 01/13/24 12:08 MT Document 01/20/24 10:55 RB Desktop 01/20/24 10:57 RB 01/13/24 01/20/24 11:51 10:55 Wound Care Center Nurse 3 #18 Left medial LE cluster -Ulcer Cleansing Rinsed/ Rinsed/ Irrigated with Irrigated with Saline Saline -Foul Odor after Cleansing No -Negative Pressure Wound Therapy N/A -Primary Dressing Applied Aquacel Extra Aquacel Extra -Other Dressing super absorber -Primary Dressing Covered/Secured with Dry Gauze & Dry Gauze & Roll Gauze, Roll Gauze, Secured with Secured with Tape Tape -Aquacel Extra 1 2 Right -Tubular Bandage Single Layer Single Layer -Size of Tubigrip Used Size F Size F -Size F ($) 1 1 -Other F HCS Left -Compression Wrap Kishore Wrap -Tubular Bandage Single Layer Single Layer -Size of Tubigrip Used Size F Size F -Size F ($) 1 1 -Other F HCS Pain Scale: 0-10 Numeric Is Patient Pain Free? Yes Yes WC - Visit Discharge Discharge Condition Stable Ambulatory Status Ambulatory, Walker Transportation Private Auto Medication Reconcilliation completed & No provided to patient/care provider Clinical Summary of Care Provided Yes Assessment/Plan Assessment/Plan (1) Lymphedema: CODE(S): I89.0 - Lymphedema, not elsewhere classified (2) Hypertension: CODE(S): I10 - Essential (primary) hypertension QUALIFIERS: Hypertension type: primary hypertension Qualified Code(s): I10 - Essential (primary) hypertension (3) Hyperlipidemia: CODE(S): E78.5 - Hyperlipidemia, unspecified QUALIFIERS: Hyperlipidemia type: mixed hyperlipidemia Qualified Code(s): E78.2 - Mixed hyperlipidemia (4) History of DVT (deep vein thrombosis): CODE(S): Z86.718 - Personal history of other venous thrombosis and embolism (5) Venous insufficiency (chronic) (peripheral): CODE(S): I87.2 - Venous insufficiency (chronic) (peripheral) (6) Venous ulcer of left lower extremity with varicose veins: CODE(S): I83.029 - Varicose veins of left lower extremity with ulcer of unspecified site (7) Edema: CODE(S): R60.9 - Edema, unspecified QUALIFIERS: Edema type: unspecified Qualified Code(s): R60.9 - Edema, unspecified PLAN: Plan Evaluation and debridement of left medial LE ulcer performed today in clinic as annotated above. At home wound-care instructions: Will dress his ulcers with Fibracol daily and cover with super absorber and gauze. If his ulcers are dry then would decrease frequency of changes to every other day. Continue compression with E tubigrips b/l. Due to the delayed progress in wound healing of his venous ulcers, we discussed applying for advanced wound healing product for healing his ulcer. Due to the size of his ulcer, Theraskin application approval is being requested from his insurance as it is medically necessary for salvaging his limb and healing his ulcer. He underwent 2 applications of Theraskin to this ulcer. Since applicationof Theraskin he has had much improvement in epitheliazation of his ulcer even though the overall size is not significantly changed there is progress. Off-loading: The patient was instructed to avoid pressure and friction on the affected areas. Reposition every 2 hours at minimum. Avoid prolonged standing and/or dangling of legs. When seated, feet should be elevated at chest level. Frequent ambulation is encouraged. Encouraged lymphedema pump use. Diet: Patient encouraged to increase protein intake while taking caution to avoid high carbohydrate and/or sugar intake. Labs/cultures/imaging: Wound culture showed 1+ Pseudomonas that is sensitive to Levofloxacin and completed treatment on 08/16/23. Follow-up: Return in 1 week for wound care follow up and have secondary dressing[facility] Tuesday and Wednesday. Return sooner or report to the emergency room should symptoms worsen, or new symptoms arise. Note: [employer] speech recognition hair tinter software was used to create portions of this document. Sound-alike and misspelled words, as well as other hair tinter errors may be contained in the documentation. 01/20/24 1346 <Electronically signed by Patricia Garcia DO> Cosigner Signature (if applicable): CC: ~ Signed [facility] Work Phone: [phone] [phone] Progress note Author Patricia Garcia [facility] January 13, 2024 1:52pm Note Date/Time January 13, 2024 1:52 pm [facility] [address] [place] [address] Progress Note - Wound Care 01/13/24 1350 MR#: [id number] Acct: [id number] Name: ESTEBAN URBINA Rep #:[id number] : 1955 68 From: Patricia Garcia DO PCP: Dr. Patricia Garcia DO Status:REG RCR Location: History of Present Illness Date of Service: 01/13/24 Chief Complaint: venous ulcers of left lower extremity History of Wound: Mauricio is a 68 yo gentleman who is here today for evaluation of ulcers to to his bilateral lower legs. [facility]. The left LE ulcer started after he developed increased swelling and blisters of left leg in October and the right leg started sometime at the end of October. He was seen at PCP's office a culture was taken and it was resistant to several antibiotics. He was treated initially with Levaquin but had myalgias and then was treated with doxycycline which he finished 2 days ago. He denies improvementand is having swelling to his left calf and thigh. He has been having swelling to both lower extremities for many years and it has worsened over the last few months. He has not been compliant with compression. He has had increased pain especially in the left leg. He has clear yellow drainage and redness without odor or warmth. He is anti-coagulated on coumadin. He has been washing with Dial soap and witch ifrah. He had been using Collagen at times and using Calcium Alginate and covering with ABD pads during October. He was treated with 3M compression and Aquacel Ag. He was referred to the wound center for ongoing treatment. His ulcers have moderate to heavy drainage. He was recently hospitalized for cellulitis and edema for the last 10 days. He was in the hospital from 11/30/22 until 12/09/22 for treatment of cellulitis and edema. He underwent treatment with Vancomycin and IV lasix and compression. Discharged on 12/09/22. He returned to his assisted living apartment on Tuesday12/21/22. Subjective Subjective Mauricio is a 68-year-old male with longstanding history of chronic venous ulcerationto the left lower extremity. He has been using Fibracol and tolerating it ok butdid experience burning. There has been improvement in his ulcer overall. He reports significantly decreased drainage. He continues to use super absorber forheavy drainage and size D Tubigrips for compression. 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 He continues to use his lymphedema pumps but continues to have pain with use of these pumps. Objective Data Objective Data Vital Signs: Vital Signs Temp Pulse Resp BP O2 Del Method 97.4 F L 68 18 107/65 Room Air 01/13/24 11:06 01/13/24 11:06 01/13/24 11:06 01/13/24 11:06 01/13/24 11:06 Oxygen Delivery Method Room Air Physical Exam Const alert, oriented x3 and no apparent distress General Appearance: cooperative and comfortable HEENT normocephalic and head/scalp atraumatic Lymph Lymphatic: lymphedema moderate Resp normal respiratory effort Effort and Inspection: able to speak in complete sentences Cardio regular rate and regular rhythm Extremity General Extremity: edema bilateral lower extremity Details: severe Skin Wounds: wounds noted Wound Narrative: as in clinical panel Psych mental status grossly normal, thought process normal, cooperative and affect normal Debridement Note Debridement Note Wound debrided: left medial LE ulcer Laterality: Left Type of Debridement: Excisional debridement Anesthesia Used: 4% Lidocaine Solution and Cetacaine Depth: Down to and including healthy tissue and in the subcutaneous layer Percentage of wound debrided: 100 Instrument Used: - (Misonix ultrasonic debridement) Tissue Removed: Yellow slough, devitalized tissue Severity: Fat Layer Exposed Amount of bleeding with debridement: Mild Bleeding Controlled with: Compression and gauze Patient tolerated procedure: Patient tolerated procedure well Post-Debridement Measurements and Additional Note: Post-Debridement Measurements/Treatment DEBBIE - Nurse 1 - General Ulcer Assessment Start: 01/13/24 11:06 Freq: Status: Active Protocol: ONDINA Activity Type Activity Date Activity User E-sign Co-sign Detail Recorded Client Recorded Date Recorded By Document 01/13/24 11:06 NE [employer] 01/13/24 11:18 NE 01/13/24 11:06 WC - Today's Visit Information Type of service Follow-up Visit (Physician/APPLICATIONS SPECIALIST ) Arrival Mode Ambulatory, Walker Accompanied by self Patient Identification Verified (Name & Yes ) Safety Precautions Fall Prevention Vital Signs Temperature (97.8 F-99.1 F) 97.4 F L Temperature Source Temporal Pulse Rate (60-100) 68 Pulse Location Monitor Respiratory Rate (12-18) 18 Respiratory rate source Observation Oxygen Delivery Method Room Air Blood Pressure (90/60-120/80) 107/65 Blood Pressure Mean (mm Hg) 79 Source Monitor Position Sitting Blood Pressure Location Right Forearm History Since Last Visit- (Skip if this is Patient's initial visit) Has dressing in place as prescribed Yes Has compression in place as prescribed Yes Has offloadiing in place as prescribed N/A Experienced any changes in pain level or No management Left Footwear Regular Shoe Right Footwear Regular Shoe Pain Scale: 0-10 Numeric Is Patient Pain Free? Yes DEBBIE Berger Nurse 1 - General Ulcer Measurement Start: 01/13/24 11:06 Freq: Status: Active Protocol: Activity Type Activity Date Activity User E-sign Co-sign Detail Recorded Client Recorded Date Recorded By Document 01/13/24 11:06 NE [employer] 01/13/24 11:18 NE 01/13/24 11:06 Wound Center Nurse 1 #18 Left medial LE cluster -Current Size (cm) - Length 9 -Current Size (cm) - Width 21 -Current Size (cm) - Depth 0.1 -Total Square Cm 189 -Exudate Amt Large -Exudate Type Serous -Wound Margin Flat & Intact -Granulation Amt Large (67-100%) -Granulation Quality Pale,Lingle -Slough/Fibrin Yes -Necrosis Amt Small (1-33%) -Necrotic Tissue Type Adherent Slough -Texture (Marie-wound Skin Appearance) Assessed -Moisture (Marie-wound Skin Appearance) Assessed -Color (Marie-wound Skin Appearance) Assessed -Temperature (Marie-wound Skin No Abnormality Appearance) (Pt Warm) -Tenderness on Palpation (Marie-wound No Skin Appearance) -Ulcer Cleansing Soap and Water -Anesthetic Used 4% Lidocaine Solution WC - Nurse 2 - General Ulcer CM Notes Start: 01/13/24 11:06 Freq: Status: Active Protocol: Activity Type Activity Date Activity User E-sign Co-sign Detail Recorded Client Recorded Date Recorded By Document 01/13/24 11:37 GM Desktop 01/13/24 11:50 GM Edit Result 01/13/24 11:37 GM (1) Desktop 01/13/24 11:50 GM (1) #18 Left medial LE cluster - Debridement, SubQ, ea addt'l 20sq cm => 8 or part thereof 01/13/24 11:37 Wound Center Nurse 2 -Time 11:38 -Correct Patient Yes -Correct Side, Site, Position Yes -Correct Procedure Yes -Procedure Performed Yes -Type of Procedure Debridement -Clinical Debridement Subcutaneous -Tissue Removed Subcutaneous -Post Debridement (cm) - Length 9.7 -Post Debridement (cm) - Width 18 -Post Debridement (cm) - Depth 0.1 -Total Square (Post) (cm) 174.6 -Area of Debridement (cm) - Length 9.7 -Area of Debridement (cm) - Width 18 -Total Square (Area) (cm) 174.6 -Tunneling No -Undermining/Tunneling No -Circular Undermining No -Wound/Ulcer Outcome Not Healed -Ulcer Cleansing Rinsed/ Irrigated with Saline -Foul Odor after Cleansing No -Bioengineered Tissue No -Bleeding Controlled with Pressure -Treatment Response Procedure Tolerated Well -Debridement - Subq, 1st 20sq cm Yes -Debridement, SubQ, ea addt'l 20sq cm 8 or part thereof Pain Scale: 0-10 Numeric Is Patient Pain Free? Yes WC - Nurse 3 - General Ulcer D/C NN Start: 01/13/24 11:06 Freq: Status: Active Protocol: Activity Type Activity Date Activity User E-sign Co-sign Detail Recorded Client Recorded Date Recorded By Document 01/13/24 11:51 NE Desktop 01/13/24 12:08 NE 01/13/24 11:51 Wound Care Center Nurse 3 #18 Left medial LE cluster -Ulcer Cleansing Rinsed/ Irrigated with Saline -Foul Odor after Cleansing No -Negative Pressure Wound Therapy N/A -Primary Dressing Applied Aquacel Extra -Primary Dressing Covered/Secured with Dry Gauze & Roll Gauze, Secured with Tape -Aquacel Extra 1 Right -Tubular Bandage Single Layer -Size of Tubigrip Used Size F -Size F ($) 1 -Other F HCS Left -Compression Wrap Kishore Wrap -Tubular Bandage Single Layer -Size of Tubigrip Used Size F -Size F ($) 1 -Other F HCS Pain Scale: 0-10 Numeric Is Patient Pain Free? Yes Assessment/Plan Assessment/Plan (1) Lymphedema: CODE(S): I89.0 - Lymphedema, not elsewhere classified (2) Hypertension: CODE(S): I10 - Essential (primary) hypertension QUALIFIERS: Hypertension type: primary hypertension Qualified Code(s): I10 - Essential (primary) hypertension (3) Hyperlipidemia: CODE(S): E78.5 - Hyperlipidemia, unspecified QUALIFIERS: Hyperlipidemia type: mixed hyperlipidemia Qualified Code(s): E78.2 - Mixed hyperlipidemia (4) History of DVT (deep vein thrombosis): CODE(S): Z86.718 - Personal history of other venous thrombosis and embolism (5) Venous insufficiency (chronic) (peripheral): CODE(S): I87.2 - Venous insufficiency (chronic) (peripheral) (6) Venous ulcer of left lower extremity with varicose veins: CODE(S): I83.029 - Varicose veins of left lower extremity with ulcer of unspecified site (7) Edema: CODE(S): R60.9 - Edema, unspecified QUALIFIERS: Edema type: unspecified Qualified Code(s): R60.9 - Edema, unspecified PLAN: Plan Evaluation and debridement of left medial LE ulcer performed today in clinic as annotated above. At home wound-care instructions: Will dress his ulcers with Fibracol every other day and Aquacel Extra on opposite days and cover with super absorber and gauze. If his ulcers are dry then would decrease frequency of changes to every other day. Continue compression with E tubigrips b/l. Due to the delayed progress in wound healing of his venous ulcers, we discussed applying for advanced wound healing product for healing his ulcer. Due to the size of his ulcer, Theraskin application approval is being requested from his insurance as it is medically necessary for salvaging his limb and healing his ulcer. He underwent 2 applications of Theraskin to this ulcer. Since applicationof Theraskin he has had much improvement in epitheliazation of his ulcer even though the overall size is not significantly changed there is progress. Off-loading: The patient was instructed to avoid pressure and friction on the affected areas. Reposition every 2 hours at minimum. Avoid prolonged standing and/or dangling of legs. When seated, feet should be elevated at chest level. Frequent ambulation is encouraged. Encouraged lymphedema pump use. Diet: Patient encouraged to increase protein intake while taking caution to avoid high carbohydrate and/or sugar intake. Labs/cultures/imaging: Wound culture showed 1+ Pseudomonas that is sensitive to Levofloxacin and completed treatment on 08/16/23. Follow-up: Return in 1 week for wound care follow up and have secondary dressingchanged by home health Tuesday and Tuesday. Return sooner or report to the emergency room should symptoms worsen, or new symptoms arise. Note: [employer] speech recognition hair tinter software was used to create portions of this document. Sound-alike and misspelled words, as well as other hair tinter errors may be contained in the documentation. 01/13/24 1352 <Electronically signed by Patricia Garcia DO> Cosigner Signature (if applicable): CC: ~ Signed [facility] Work Phone: [phone] Progress note Author Patricia Garcia [facility] January 06, 2024 1:47pm Note Date/Time January 06, 2024 1:4 7pm [facility] [address] [place] [id number] Progress Note - Wound Care 01/06/24 1344 MR#: [id number] Acct: [id number] Name: ESTEBAN URBINA Rep #:[id number] : 1955 68 From: Patricia Garcia DO PCP: Dr. Patricia Garcia, Status:REG RCR Location: History of Present Illness Date of Service: 01/06/24 Chief Complaint: venous ulcers of left lower extremity History of Wound: Mauricio is a 68 yo gentleman who is here today for evaluation of ulcers to to his bilateral lower legs. [facility]. The left LE ulcer started after he developed increased swelling and blisters of left leg in October and the right leg started sometime at the end of October. He was seen at PCP's office a culture was taken and it was resistant to several antibiotics. He was treated initially with Levaquin but had myalgias and then was treated with doxycycline which he finished 2 days ago. He denies improvementand is having swelling to his left calf and thigh. He has been having swelling to both lower extremities for many years and it has worsened over the last few months. He has not been compliant with compression. He has had increased pain especially in the left leg. He has clear yellow drainage and redness without odor or warmth. He is anti-coagulated on coumadin. He has been washing with Dial soap and witch ifrah. He had been using Collagen at times and using Calcium Alginate and covering with ABD pads during October. He was treated with 3M compression and Aquacel Ag. He was referred to the wound center for ongoing treatment. His ulcers have moderate to heavy drainage. He was recently hospitalized for cellulitis and edema for the last 10 days. He was in the hospital from 11/30/22 until 12/09/22 for treatment of cellulitis and edema. He underwent treatment with Vancomycin and IV lasix and compression. Discharged on 12/09/22. He returned to his assisted living apartment on Tuesday12/21/22. Subjective Subjective Mauricio is a 68-year-old male with longstanding history of chronic venous ulcerationto the left lower extremity. He has been using Fibracol and tolerating it ok butdid experience burning. There has been improvement in his ulcer overall. He reports significantly decreased drainage. He continues to use super absorber forheavy drainage and size D Tubigrips for compression. 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 He continues to use his lymphedema pumps but continues to have pain with use of these pumps. Objective Data Objective Data Vital Signs: Vital Signs Temp Pulse Resp BP O2 Del Method 96.3 F L 60 18 110/74 Room Air 01/06/24 09:40 01/06/24 09:40 01/06/24 09:40 01/06/24 09:40 01/06/24 09:40 Oxygen Delivery Method Room Air Physical Exam Const alert, oriented x3 and no apparent distress General Appearance: cooperative and comfortable HEENT normocephalic and head/scalp atraumatic Lymph Lymphatic: lymphedema moderate Resp normal respiratory effort Effort and Inspection: able to speak in complete sentences Cardio regular rate and regular rhythm Extremity General Extremity: edema bilateral lower extremity Details: severe Skin Wounds: wounds noted Wound Narrative: as in clinical panel Psych mental status grossly normal, thought process normal, cooperative and affect normal Debridement Note Debridement Note Wound debrided: left medial LE ulcer Laterality: Left Type of Debridement: Excisional debridement Anesthesia Used: 4% Lidocaine Solution and Cetacaine Depth: Down to and including healthy tissue and in the subcutaneous layer Percentage of wound debrided: 100 Instrument Used: - (Misonix ultrasonic debridement) Tissue Removed: Yellow slough, devitalized tissue Severity: Fat Layer Exposed Amount of bleeding with debridement: Mild Bleeding Controlled with: Compression and gauze Patient tolerated procedure: Patient tolerated procedure well Post-Debridement Measurements and Additional Note: Post-Debridement Measurements/Treatment - Nurse 1 - General Ulcer Assessment Start: 12/09/23 09:33 Freq: Status: Active Protocol: ONDINA Activity Type Activity Date Activity User E-sign Co-sign Detail Recorded Client Recorded Date Recorded By Document 12/09/23 09:33 RB Desktop 12/09/23 09:36 RB Document 12/23/23 09:38 RB Desktop 12/23/23 09:41 RB Document 12/30/23 10:22 MT Desktop 12/30/23 10:34 MT Document 01/06/24 09:40 KW Desktop 01/06/24 09:50 KW 12/09/23 12/23/23 12/30/23 09:33 09:38 10:22 - Today's Visit Information Type of service Follow-up Visit Follow-up Visit Follow-up Visit (Physician/APPLICATIONS SPECIALIST (Physician/APPLICATIONS SPECIALIST (Physician/APPLICATIONS SPECIALIST ) ) ) Arrival Mode Ambulatory, Ambulatory, Ambulatory Walker Walker Transfer Assistance None None None Patient Identification Verified (Name & Yes Yes ) Patient Requires Transmission-Based No No No Precautions Vital Signs Temperature (97.8 F-99.1 F) 96.5 F L 96.5 F L 95.4 F L Temperature Source Temporal Temporal Temporal Pulse Rate (60-100) 82 70 68 Pulse Location Monitor Monitor Monitor Respiratory Rate (12-18) 18 18 18 Respiratory rate source Observation Observation Observation Oxygen Delivery Method Blood Pressure (90/60-120/80) 122/80 H 145/87 H 137/82 H Blood Pressure Mean (mm Hg) 94 106 100 Source Monitor Monitor Monitor Position Semi-Fowlers Semi-Fowlers Semi-Fowlers Blood Pressure Location Left Arm Left Arm Left Arm History Since Last Visit- (Skip if this is Patient's initial visit) Have you changed medications since your No No No last visit? Any new allergies or adverse reactions No No No Had a fall/change in ADL's that may No No No increase risk of falls Signs or symptoms of abuse and/or No No No neglect since last visit Have you been in the hospital since your No No No last visit? Has dressing in place as prescribed Yes Yes Yes Has compression in place as prescribed Yes No Yes Has offloadiing in place as prescribed No No No Experienced any changes in pain level or No No No management Left Footwear Right Footwear Pain Scale: 0-10 Numeric Is Patient Pain Free? Yes Yes Yes 01/06/24 09:40 WC - Today's Visit Information Type of service Follow-up Visit (Physician/APPLICATIONS SPECIALIST ) Arrival Mode Ambulatory, Walker Transfer Assistance Patient Identification Verified (Name & Yes ) Patient Requires Transmission-Based Precautions Vital Signs Temperature (97.8 F-99.1 F) 96.3 F L Temperature Source Temporal Pulse Rate (60-100) 60 Pulse Location Monitor Respiratory Rate (12-18) 18 Respiratory rate source Observation Oxygen Delivery Method Room Air Blood Pressure (90/60-120/80) 110/74 Blood Pressure Mean (mm Hg) 86 Source Monitor Position Semi-Fowlers Blood Pressure Location Right Arm History Since Last Visit- (Skip if this is Patient's initial visit) Have you changed medications since your No last visit? Any new allergies or adverse reactions No Had a fall/change in ADL's that may No increase risk of falls Signs or symptoms of abuse and/or No neglect since last visit Have you been in the hospital since your No last visit? Has dressing in place as prescribed Yes Has compression in place as prescribed Yes Has offloadiing in place as prescribed N/A Experienced any changes in pain level or No management Left Footwear Regular Shoe Right Footwear Regular Shoe Pain Scale: 0-10 Numeric Is Patient Pain Free? Yes - Nurse 1 - General Ulcer Measurement Start: 12/09/23 09:33 Freq: Status: Active Protocol: Activity Type Activity Date Activity User E-sign Co-sign Detail Recorded Client Recorded Date Recorded By Document 12/09/23 09:33 RB Desktop 12/09/23 09:36 RB Document 12/23/23 09:38 RB Desktop 12/23/23 09:41 RB Document 12/30/23 10:22 MT Desktop 12/30/23 10:34 MT Document 01/06/24 09:40 KW Desktop 01/06/24 09:50 KW 12/09/23 12/23/23 12/30/23 09:33 09:38 10:22 Wound Center Nurse 1 #18 Left medial LE cluster -Combined with other wound No No No -Current Size (cm) - Length 9 20.2 18 -Current Size (cm) - Width 16 10.5 9.2 -Current Size (cm) - Depth 0.1 0.1 0.1 -Total Square Cm 144 212.10 165.6 -Photo Taken Yes -Tunneling No No No -Undermining/Tunneling No No No -Circular Undermining No No No -Exudate Amt Large Medium Large -Exudate Type Serosanguineous Serosanguineous Serosanguineous -Wound Margin Distinct, Distinct, Distinct, Outline Outline Outline Attached Attached Attached -Granulation Amt Medium (34-66%) Medium (34-66%) Medium (34-66%) -Granulation Quality Lingle Lingle Lingle -Slough/Fibrin Yes Yes Yes -Necrosis Amt Medium (34-66%) Medium (34-66%) Medium (34-66%) -Necrotic Tissue Type Adherent Slough Adherent Slough Adherent Slough -Structure Exposed N/A N/A N/A -Texture (Marie-wound Skin Appearance) Assessed, Assessed Assessed, Localized Edema Scarring -Moisture (Marie-wound Skin Appearance) Assessed Assessed Assessed -Color (Marie-wound Skin Appearance) Erythema Hemosiderin Assessed Staining -Temperature (Marie-wound Skin No Abnormality No Abnormality No Abnormality Appearance) (Pt Warm) (Pt Warm) (Pt Warm) -Tenderness on Palpation (Marie-wound No No No Skin Appearance) -Ulcer Cleansing Wound Cleanser Wound Cleanser Wound Cleanser -Foul Odor after Cleansing No No No -Anesthetic Used 4% Lidocaine 4% Lidocaine 4% Lidocaine Solution Solution Solution Lower Limb Edema Present Yes Yes Left Calf (cm) 42 42.5 Left Ankle (cm) 30 31 01/06/24 09:40 Wound Center Nurse 1 #18 Left medial LE cluster -Combined with other wound -Current Size (cm) - Length 9 -Current Size (cm) - Width 20 -Current Size (cm) - Depth 0.1 -Total Square Cm 180 -Photo Taken -Tunneling -Undermining/Tunneling -Circular Undermining -Exudate Amt Medium -Exudate Type Serosanguineous -Wound Margin Distinct, Outline Attached -Granulation Amt Medium (34-66%) -Granulation Quality Red -Slough/Fibrin -Necrosis Amt Medium (34-66%) -Necrotic Tissue Type Adherent Slough -Structure Exposed N/A -Texture (Marie-wound Skin Appearance) Scarring -Moisture (Marie-wound Skin Appearance) No Abnormality -Color (Marie-wound Skin Appearance) Erythema, Hemosiderin Staining -Temperature (Marie-wound Skin No Abnormality Appearance) (Pt Warm) -Tenderness on Palpation (Marie-wound No Skin Appearance) -Ulcer Cleansing Soap and Water -Foul Odor after Cleansing No -Anesthetic Used 4% Lidocaine Solution Lower Limb Edema Present Left Calf (cm) 40.5 Left Ankle (cm) 28.5 WC - Nurse 2 - General Ulcer CM Notes Start: 12/09/23 09:33 Freq: Status: Active Protocol: Activity Type Activity Date Activity User E-sign Co-sign Detail Recorded Client Recorded Date Recorded By Document 12/09/23 10:37 PL [id number] 12/09/23 10:38 Document 12/23/23 10:09 Desktop 12/23/23 10:13 Document 12/30/23 10:49 Desktop 12/30/23 11:09 Document 01/06/24 10:06 Desktop 01/06/24 10:22 12/09/23 12/23/23 12/30/23 10:37 10:09 10:49 Wound Center Nurse 2 #18 Left medial LE cluster -Time 09:42 10:10 10:49 -Correct Patient Yes Yes Yes -Correct Side, Site, Position Yes Yes Yes -Correct Procedure Yes Yes Yes -Procedure Performed Yes Yes Yes -Type of Procedure Debridement Debridement Debridement -Clinical Debridement Subcutaneous Subcutaneous Subcutaneous -Tissue Removed Subcutaneous Subcutaneous Subcutaneous -Post Debridement (cm) - Length 10 10 9.5 -Post Debridement (cm) - Width 20 17.5 18 -Post Debridement (cm) - Depth 0.2 0.1 0.1 -Total Square (Post) (cm) 200 175.0 171.0 -Area of Debridement (cm) - Length 10 10 9.5 -Area of Debridement (cm) - Width 20 17.5 15 -Total Square (Area) (cm) 200 175.0 142.5 -Tunneling No No No -Undermining/Tunneling No No No -Circular Undermining No No No -Wound/Ulcer Outcome Not Healed Not Healed Not Healed -Ulcer Cleansing Rinsed/ Rinsed/ Rinsed/ Irrigated with Irrigated with Irrigated with Saline Saline Saline -Foul Odor after Cleansing No No No -Bioengineered Tissue No No No -Bleeding Controlled with Pressure Pressure Pressure -Treatment Response Procedure Procedure Tolerated Well Tolerated Well -Debridement - Subq, 1st 20sq cm Yes Yes Yes -Debridement, SubQ, ea addt'l 20sq cm 9 8 8 or part thereof Pain Scale: 0-10 Numeric Is Patient Pain Free? Yes Yes Yes 01/06/24 10:06 Wound Center Nurse 2 #18 Left medial LE cluster -Time 10:09 -Correct Patient Yes -Correct Side, Site, Position Yes -Correct Procedure Yes -Procedure Performed Yes -Type of Procedure Debridement -Clinical Debridement Subcutaneous -Tissue Removed Subcutaneous -Post Debridement (cm) - Length 9.2 -Post Debridement (cm) - Width 18.0 -Post Debridement (cm) - Depth 0.1 -Total Square (Post) (cm) 165.60 -Area of Debridement (cm) - Length 9.2 -Area of Debridement (cm) - Width 18.0 -Total Square (Area) (cm) 165.60 -Tunneling No -Undermining/Tunneling No -Circular Undermining No -Wound/Ulcer Outcome Not Healed -Ulcer Cleansing Rinsed/ Irrigated with Saline -Foul Odor after Cleansing No -Bioengineered Tissue No -Bleeding Controlled with Pressure -Treatment Response Procedure Tolerated Well -Debridement - Subq, 1st 20sq cm Yes -Debridement, SubQ, ea addt'l 20sq cm 8 or part thereof Pain Scale: 0-10 Numeric Is Patient Pain Free? Yes - Nurse 3 - General Ulcer D/C NN Start: 12/09/23 09:33 Freq: Status: Active Protocol: Activity Type Activity Date Activity User E-sign Co-sign Detail Recorded Client Recorded Date Recorded By Document 12/09/23 11:45 RB [id number] 12/09/23 11:46 RB Document 12/23/23 10:22 KW Desktop 12/23/23 10:37 KW Document 12/30/23 11:26 KW Desktop 12/30/23 11:27 KW Document 01/06/24 10:35 CP Desktop 01/06/24 10:36 CP 12/09/23 12/23/23 12/30/23 11:45 10:22 11:26 Wound Care Center Nurse 3 #18 Left medial LE cluster -Ulcer Cleansing Wound Cleanser -Primary Dressing Applied Aquacel Extra Aquacel Extra, Fibracol Plus Optilok 8x12 4x4,Optilok 8x12 -Other Dressing PT'S OWN SUPERABSORBER -Primary Dressing Covered/Secured with Dry Gauze & Dry Gauze & Dry Gauze & Roll Gauze, Roll Gauze, Roll Gauze, Secured with Secured with Secured with Tape Tape Tape -Aquacel Extra 2 1 -Fibracol Plus 4x4 1 -Optilok 8x12 1 1 Right -Tubular Bandage Single Layer Single Layer Single Layer -Size of Tubigrip Used Size E Size E Size E -Size E ($) 1 1 1 Left -Tubular Bandage Single Layer Single Layer -Size of Tubigrip Used Size E Size E -Size E ($) 1 1 Treatment Response Procedure Tolerated Well Pain Scale: 0-10 Numeric Is Patient Pain Free? Yes Yes Yes WC - Visit Discharge Discharge Condition Stable Stable Stable Ambulatory Status Ambulatory, Walker Walker Walker Transportation Private Auto Private Auto Medication Reconcilliation completed & No No No provided to patient/care provider Clinical Summary of Care Provided Yes Yes Yes 01/06/24 10:35 Wound Care Center Nurse 3 #18 Left medial LE cluster -Ulcer Cleansing Rinsed/ Irrigated with Saline -Primary Dressing Applied Aquacel Extra -Other Dressing superabsorber -Primary Dressing Covered/Secured with Dry Gauze -Aquacel Extra 1 -Fibracol Plus 4x4 -Optilok 8x12 Right -Tubular Bandage -Size of Tubigrip Used -Size E ($) Left -Tubular Bandage -Size of Tubigrip Used -Size E ($) Treatment Response Pain Scale: 0-10 Numeric Is Patient Pain Free? Yes WC - Visit Discharge Discharge Condition Stable Ambulatory Status Ambulatory Transportation hosp transport Medication Reconcilliation completed & No provided to patient/care provider Clinical Summary of Care Provided Yes Assessment/Plan Assessment/Plan (1) Lymphedema: CODE(S): I89.0 - Lymphedema, not elsewhere classified (2) Hypertension: CODE(S): I10 - Essential (primary) hypertension QUALIFIERS: Hypertension type: primary hypertension Qualified Code(s): I10 - Essential (primary) hypertension (3) Hyperlipidemia: CODE(S): E78.5 - Hyperlipidemia, unspecified QUALIFIERS: Hyperlipidemia type: mixed hyperlipidemia Qualified Code(s): E78.2 - Mixed hyperlipidemia (4) History of DVT (deep vein thrombosis): CODE(S): Z86.718 - Personal history of other venous thrombosis and embolism (5) Venous insufficiency (chronic) (peripheral): CODE(S): I87.2 - Venous insufficiency (chronic) (peripheral) (6) Venous ulcer of left lower extremity with varicose veins: CODE(S): I83.029 - Varicose veins of left lower extremity with ulcer of unspecified site (7) Edema: CODE(S): R60.9 - Edema, unspecified QUALIFIERS: Edema type: unspecified Qualified Code(s): R60.9 - Edema, unspecified PLAN: Plan Evaluation and debridement of left medial LE ulcer performed today in clinic as annotated above. At home wound-care instructions: Will dress his ulcers with Fibracol every other day and Aquacel Extra on opposite days and cover with super absorber and gauze. If his ulcers are dry then would decrease frequency of changes to every other day. Continue compression with D tubigrips b/l. Due to the delayed progress in wound healing of his venous ulcers, we discussed applying for advanced wound healing product for healing his ulcer. Due to the size of his ulcer, Theraskin application approval is being requested from his insurance as it is medically necessary for salvaging his limb and healing his ulcer. He underwent 2 applications of Theraskin to this ulcer. Since applicationof Theraskin he has had much improvement in epitheliazation of his ulcer even though the overall size is not significantly changed there is progress. Off-loading: The patient was instructed to avoid pressure and friction on the affected areas. Reposition every 2 hours at minimum. Avoid prolonged standing and/or dangling of legs. When seated, feet should be elevated at chest level. Frequent ambulation is encouraged. Encouraged lymphedema pump use. Diet: Patient encouraged to increase protein intake while taking caution to avoid high carbohydrate and/or sugar intake. Labs/cultures/imaging: Wound culture showed 1+ Pseudomonas that is sensitive to Levofloxacin and completed treatment on 08/16/23. Follow-up: Return in 1 week for wound care follow up and have secondary dressingchanged by home health Tuesday and Tuesday. Return sooner or report to the emergency room should symptoms worsen, or new symptoms arise. Note: [employer] speech recognition hair tinter software was used to create portions of this document. Sound-alike and misspelled words, as well as other hair tinter errors may be contained in the documentation. 01/06/24 1347 <Electronically signed by Patricia Garcia DO> Cosigner Signature (if applicable): CC: ~ Signed [facility] Work Phone: [phone] [phone] Progress note Author Patricia Garcia [facility] December 30, 2023 12:26pm Note Date/Time December 30, 2023 12: 26pm [facility] [address] [place] [id number] Progress Note - Wound Care 12/30/23 1223 MR#: [id number] Acct: [id number] Name: ESTEBAN URBINA Rep #:[id number] : 1955 68 From: Patricia Garcia DO PCP: Dr. Patricia Garcia, Status:REG RCR Location: History of Present Illness Date of Service: 12/30/23 Chief Complaint: venous ulcers of left lower extremity History of Wound: Mauricio is a 68 yo gentleman who is here today for evaluation of ulcers to to his bilateral lower legs. He has been treated multiple times in [facility] at the wound healing center for similar ulcers. The left LE ulcer started after he developed increased swelling and blisters of left leg in October and the right leg started sometime at the end of October. He was seen at PCP's office a culture was taken and it was resistant to several antibiotics. He was treated initially with Levaquin but had myalgias and then was treated with doxycycline which he finished 2 days ago. He denies improvementand is having swelling to his left calf and thigh. He has been having swelling to both lower extremities for many years and it has worsened over the last few months. He has not been compliant with compression. He has had increased pain especially in the left leg. He has clear yellow drainage and redness without odor or warmth. He is anti-coagulated on coumadin. He has been washing with Dial soap and witch ifrah. He had been using Collagen at times and using Calcium Alginate and covering with ABD pads during October. He was treated with 3M compression and Aquacel Ag. He was referred to the wound center for ongoing treatment. His ulcers have moderate to heavy drainage. He was recently hospitalized for cellulitis and edema for the last 10 days. He was in the hospital from 11/30/22 until 12/09/22 for treatment of cellulitis and edema. He underwent treatment with Vancomycin and IV lasix and compression. Discharged on 12/09/22. He returned to his assisted living apartment on Tuesday12/21/22. Subjective Subjective Mauricio is a 68-year-old male with longstanding history of chronic venous ulcerationto the left lower extremity. He has been using Aquacel Extra and tolerating treatment well. There has been improvement in his ulcer overall. He reports significantly decreased drainage. He continues to use super absorber for heavy drainage and size D Tubigrips for compression. 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 He continues to use his lymphedema pumps but continues to have pain with use of these pumps. Objective Data Objective Data Vital Signs: Vital Signs Temp Pulse Resp BP 95.4 F L 68 18 137/82 H 12/30/23 10:22 12/30/23 10:22 12/30/23 10:12/30/23 10:22 Physical Exam Const alert, oriented x3 and no apparent distress General Appearance: cooperative and comfortable HEENT normocephalic and head/scalp atraumatic Lymph Lymphatic: lymphedema moderate Resp normal respiratory effort Effort and Inspection: able to speak in complete sentences Cardio regular rate and regular rhythm Extremity General Extremity: edema bilateral lower extremity Details: severe Skin Wounds: wounds noted Wound Narrative: as in clinical panel Psych mental status grossly normal, thought process normal, cooperative and affect normal Debridement Note Debridement Note Wound debrided: left medial LE ulcer Laterality: Left Type of Debridement: Excisional debridement Anesthesia Used: 4% Lidocaine Solution and Cetacaine Depth: Down to and including healthy tissue and in the subcutaneous layer Percentage of wound debrided: 100 Instrument Used: 5mm curette Tissue Removed: Yellow slough, devitalized tissue Severity: Fat Layer Exposed Amount of bleeding with debridement: Mild Bleeding Controlled with: Compression and gauze Patient tolerated procedure: Patient tolerated procedure well Post-Debridement Measurements and Additional Note: Post-Debridement Measurements/Treatment - Nurse 1 - General Ulcer Assessment Start: 12/09/23 09:33 Freq: Status: Active Protocol: [email or web address] Activity Type Activity Date Activity User E-sign Co-sign Detail Recorded Client Recorded Date Recorded By Document 12/09/23 09:33 RB Desktop 12/09/23 09:36 RB Document 12/23/23 09:38 RB Desktop 12/23/23 09:41 RB Document 12/30/23 10:22 MT Desktop 12/30/23 10:34 MT 12/09/23 12/23/23 12/30/23 09:33 09:38 10:22 - Today's Visit Information Type of service Follow-up Visit Follow-up Visit Follow-up Visit (Physician/APPLICATIONS SPECIALIST (Physician/APPLICATIONS SPECIALIST (Physician/APPLICATIONS SPECIALIST ) ) ) Arrival Mode Ambulatory, Ambulatory, Ambulatory Walker Walker Transfer Assistance None None None Patient Identification Verified (Name & Yes Yes ) Patient Requires Transmission-Based No No No Precautions Vital Signs Temperature (97.8 F-99.1 F) 96.5 F L 96.5 F L 95.4 F L Temperature Source Temporal Temporal Temporal Pulse Rate (60-100) 82 70 68 Pulse Location Monitor Monitor Monitor Respiratory Rate (12-18) 18 18 18 Respiratory rate source Observation Observation Observation Blood Pressure (90/60-120/80) 122/80 H 145/87 H 137/82 H Blood Pressure Mean (mm Hg) 94 106 100 Source Monitor Monitor Monitor Position Semi-Fowlers Semi-Fowlers Semi-Fowlers Blood Pressure Location Left Arm Left Arm Left Arm History Since Last Visit- (Skip if this is Patient's initial visit) Have you changed medications since your No No No last visit? Any new allergies or adverse reactions No No No Had a fall/change in ADL's that may No No No increase risk of falls Signs or symptoms of abuse and/or No No No neglect since last visit Have you been in the hospital since your No No No last visit? Has dressing in place as prescribed Yes Yes Yes Has compression in place as prescribed Yes No Yes Has offloadiing in place as prescribed No No No Experienced any changes in pain level or No No No management Pain Scale: 0-10 Numeric Is Patient Pain Free? Yes Yes Yes WC - Nurse 1 - General Ulcer Measurement Start: 12/09/23 09:33 Freq: Status: Active Protocol: Activity Type Activity Date Activity User E-sign Co-sign Detail Recorded Client Recorded Date Recorded By Document 12/09/23 09:33 RB Desktop 12/09/23 09:36 RB Document 12/23/23 09:38 RB Desktop 12/23/23 09:41 RB Document 12/30/23 10:22 MT Desktop 12/30/23 10:34 MT 12/09/23 12/23/23 12/30/23 09:33 09:38 10:22 Wound Center Nurse 1 #18 Left medial LE cluster -Combined with other wound No No No -Current Size (cm) - Length 9 20.2 18 -Current Size (cm) - Width 16 10.5 9.2 -Current Size (cm) - Depth 0.1 0.1 0.1 -Total Square Cm 144 212.10 165.6 -Photo Taken Yes -Tunneling No No No -Undermining/Tunneling No No No -Circular Undermining No No No -Exudate Amt Large Medium Large -Exudate Type Serosanguineous Serosanguineous Serosanguineous -Wound Margin Distinct, Distinct, Distinct, Outline Outline Outline Attached Attached Attached -Granulation Amt Medium (34-66%) Medium (34-66%) Medium (34-66%) -Granulation Quality Lingle Lingle Lingle -Slough/Fibrin Yes Yes Yes -Necrosis Amt Medium (34-66%) Medium (34-66%) Medium (34-66%) -Necrotic Tissue Type Adherent Slough Adherent Slough Adherent Slough -Structure Exposed N/A N/A N/A -Texture (Marie-wound Skin Appearance) Assessed, Assessed Assessed, Localized Edema Scarring -Moisture (Marie-wound Skin Appearance) Assessed Assessed Assessed -Color (Marie-wound Skin Appearance) Erythema Hemosiderin Assessed Staining -Temperature (Marie-wound Skin No Abnormality No Abnormality No Abnormality Appearance) (Pt Warm) (Pt Warm) (Pt Warm) -Tenderness on Palpation (Marie-wound No No No Skin Appearance) -Ulcer Cleansing Wound Cleanser Wound Cleanser Wound Cleanser -Foul Odor after Cleansing No No No -Anesthetic Used 4% Lidocaine 4% Lidocaine 4% Lidocaine Solution Solution Solution Lower Limb Edema Present Yes Yes Left Calf (cm) 42 42.5 Left Ankle (cm) 30 31 WC - Nurse 2 - General Ulcer CM Notes Start: 12/09/23 09:33 Freq: Status: Active Protocol: Activity Type Activity Date Activity User E-sign Co-sign Detail Recorded Client Recorded Date Recorded By Document 12/09/23 10:37 PL [id number] 12/09/23 10:38 PL Document 12/23/23 10:09 GM Desktop 12/23/23 10:13 GM Document 12/30/23 10:49 Desktop 12/30/23 11:09 12/09/23 12/23/23 12/30/23 10:37 10:09 10:49 Wound Center Nurse 2 #18 Left medial LE cluster -Time 09:42 10:10 10:49 -Correct Patient Yes Yes Yes -Correct Side, Site, Position Yes Yes Yes -Correct Procedure Yes Yes Yes -Procedure Performed Yes Yes Yes -Type of Procedure Debridement Debridement Debridement -Clinical Debridement Subcutaneous Subcutaneous Subcutaneous -Tissue Removed Subcutaneous Subcutaneous Subcutaneous -Post Debridement (cm) - Length 10 10 9.5 -Post Debridement (cm) - Width 20 17.5 18 -Post Debridement (cm) - Depth 0.2 0.1 0.1 -Total Square (Post) (cm) 200 175.0 171.0 -Area of Debridement (cm) - Length 10 10 9.5 -Area of Debridement (cm) - Width 20 17.5 15 -Total Square (Area) (cm) 200 175.0 142.5 -Tunneling No No No -Undermining/Tunneling No No No -Circular Undermining No No No -Wound/Ulcer Outcome Not Healed Not Healed Not Healed -Ulcer Cleansing Rinsed/ Rinsed/ Rinsed/ Irrigated with Irrigated with Irrigated with Saline Saline Saline -Foul Odor after Cleansing No No No -Bioengineered Tissue No No No -Bleeding Controlled with Pressure Pressure Pressure -Treatment Response Procedure Procedure Tolerated Well Tolerated Well -Debridement - Subq, 1st 20sq cm Yes Yes Yes -Debridement, SubQ, ea addt'l 20sq cm 9 8 8 or part thereof Pain Scale: 0-10 Numeric Is Patient Pain Free? Yes Yes Yes WC - Nurse 3 - General Ulcer D/C NN Start: 12/09/23 09:33 Freq: Status: Active Protocol: Activity Type Activity Date Activity User E-sign Co-sign Detail Recorded Client Recorded Date Recorded By Document 12/09/23 11:45 RB [id number] 12/09/23 11:46 RB Document 12/23/23 10:22 KW Desktop 12/23/23 10:37 KW Document 12/30/23 11:26 KW Desktop 12/30/23 11:27 KW 12/09/23 12/23/23 12/30/23 11:45 10:22 11:26 Wound Care Center Nurse 3 #18 Left medial LE cluster -Ulcer Cleansing Wound Cleanser -Primary Dressing Applied Aquacel Extra Aquacel Extra, Fibracol Plus Optilok 8x12 4x4,Optilok 8x12 -Other Dressing PT'S OWN SUPERABSORBER -Primary Dressing Covered/Secured with Dry Gauze & Dry Gauze & Dry Gauze & Roll Gauze, Roll Gauze, Roll Gauze, Secured with Secured with Secured with Tape Tape Tape -Aquacel Extra 2 1 -Fibracol Plus 4x4 1 -Optilok 8x12 1 1 Right -Tubular Bandage Single Layer Single Layer Single Layer -Size of Tubigrip Used Size E Size E Size E -Size E ($) 1 1 1 Left -Tubular Bandage Single Layer Single Layer -Size of Tubigrip Used Size E Size E -Size E ($) 1 1 Treatment Response Procedure Tolerated Well Pain Scale: 0-10 Numeric Is Patient Pain Free? Yes Yes Yes WC - Visit Discharge Discharge Condition Stable Stable Stable Ambulatory Status Ambulatory, Walker Walker Walker Transportation Private Auto Private Auto Medication Reconcilliation completed & No No No provided to patient/care provider Clinical Summary of Care Provided Yes Yes Yes Assessment/Plan Assessment/Plan (1) Lymphedema: CODE(S): I89.0 - Lymphedema, not elsewhere classified (2) Hypertension: CODE(S): I10 - Essential (primary) hypertension QUALIFIERS: Hypertension type: primary hypertension Qualified Code(s): I10 - Essential (primary) hypertension (3) Hyperlipidemia: CODE(S): E78.5 - Hyperlipidemia, unspecified QUALIFIERS: Hyperlipidemia type: mixed hyperlipidemia Qualified Code(s): E78.2 - Mixed hyperlipidemia (4) History of DVT (deep vein thrombosis): CODE(S): Z86.718 - Personal history of other venous thrombosis and embolism (5) Venous insufficiency (chronic) (peripheral): CODE(S): I87.2 - Venous insufficiency (chronic) (peripheral) (6) Venous ulcer of left lower extremity with varicose veins: CODE(S): I83.029 - Varicose veins of left lower extremity with ulcer of unspecified site (7) Edema: CODE(S): R60.9 - Edema, unspecified QUALIFIERS: Edema type: unspecified Qualified Code(s): R60.9 - Edema, unspecified PLAN: Plan Evaluation and debridement of left medial LE ulcer performed today in clinic as annotated above. At home wound-care instructions: Will dress his ulcers with Fibracol and Aquacel Extra daily and cover with super absorber and gauze. If his ulcers are dry then would decrease frequency of changes to every other day. Continue compression with D tubigrips b/l. Due to the delayed progress in wound healing of his venous ulcers, we discussed applying for advanced wound healing product for healing his ulcer. Due to the size of his ulcer, Theraskin application approval is being requested from his insurance as it is medically necessary for salvaging his limb and healing his ulcer. He underwent 2 applications of Theraskin to this ulcer. Since applicationof Theraskin he has had much improvement in epitheliazation of his ulcer even though the overall size is not significantly changed there is progress. Off-loading: The patient was instructed to avoid pressure and friction on the affected areas. Reposition every 2 hours at minimum. Avoid prolonged standing and/or dangling of legs. When seated, feet should be elevated at chest level. Frequent ambulation is encouraged. Encouraged lymphedema pump use. Diet: Patient encouraged to increase protein intake while taking caution to avoid high carbohydrate and/or sugar intake. Labs/cultures/imaging: Wound culture showed 1+ Pseudomonas that is sensitive to Levofloxacin and completed treatment on 08/16/23. Follow-up: Return in 1 week for wound care follow up and have secondary dressingchanged by [facility] Tuesday and Wednesday. Return sooner or report to the emergency room should symptoms worsen, or new symptoms arise. Note: [employer] speech recognition hair tinter software was used to create portions of this document. Sound-alike and misspelled words, as well as other hair tinter errors may be contained in the documentation. 12/30/23 1226 <Electronically signed by Patricia Garcia DO> Cosigner Signature (if applicable): CC: ~ Signed [facility] Work Phone: [phone] Progress note Author Patricia Garcia [facility] December 23, 2023 2:37pm Note Date/Time December 23, 2023 2:3 7pm [facility] [address] [place] [address] Progress Note - Wound Care 12/23/23 1436 MR#: [id number] Acct: [id number] Name: ESTEBAN URBINA Rep #:[id number] : 1955 68 From: Patricia Garcia DO PCP: Dr. Patricia Garcia DO Status:REG RCR Location: History of Present Illness Date of Service: 12/23/23 Chief Complaint: venous ulcers of left lower extremity History of Wound: Mauricio is a 68 yo gentleman who is here today for evaluation of ulcers to to his bilateral lower legs. [facility]. The left LE ulcer started after he developed increased swelling and blisters of left leg in October and the right leg started sometime at the end of October. He was seen at PCP's office a culture was taken and it was resistant to several antibiotics. He was treated initially with Levaquin but had myalgias and then was treated with doxycycline which he finished 2 days ago. He denies improvementand is having swelling to his left calf and thigh. He has been having swelling to both lower extremities for many years and it has worsened over the last few months. He has not been compliant with compression. He has had increased pain especially in the left leg. He has clear yellow drainage and redness without odor or warmth. He is anti-coagulated on coumadin. He has been washing with Dial soap and witch ifrah. He had been using Collagen at times and using Calcium Alginate and covering with ABD pads during October. He was treated with 3M compression and Aquacel Ag. He was referred to the wound center for ongoing treatment. His ulcers have moderate to heavy drainage. He was recently hospitalized for cellulitis and edema for the last 10 days. He was in the hospital from 11/30/22 until 12/09/22 for treatment of cellulitis and edema. He underwent treatment with Vancomycin and IV lasix and compression. Discharged on 12/09/22. He returned to his assisted living apartment on Tuesday12/21/22. Subjective Subjective Mauricio is a 68-year-old male with longstanding history of chronic venous ulcerationto the left lower extremity. He has been using Aquacel Extra and tolerating treatment well. There has been improvement in his ulcer overall. He reports significantly decreased drainage. He continues to use super absorber for heavy drainage and size D Tubigrips for compression. 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 He continues to use his lymphedema pumps but continues to have pain with use of these pumps. Objective Data Objective Data Vital Signs: Vital Signs Temp Pulse Resp BP 96.5 F L 70 18 145/87 H 12/23/23 09:38 12/23/23 09:38 12/23/23 09:38 12/23/23 09:38 Physical Exam Const alert, oriented x3 and no apparent distress General Appearance: cooperative and comfortable HEENT normocephalic and head/scalp atraumatic Lymph Lymphatic: lymphedema moderate Resp normal respiratory effort Effort and Inspection: able to speak in complete sentences Cardio regular rate and regular rhythm Extremity General Extremity: edema bilateral lower extremity Details: severe Skin Wounds: wounds noted Wound Narrative: as in clinical panel Psych mental status grossly normal, thought process normal, cooperative and affect normal Debridement Note Debridement Note Wound debrided: left medial LE ulcer Laterality: Left Type of Debridement: Excisional debridement Anesthesia Used: 4% Lidocaine Solution and Cetacaine Depth: Down to and including healthy tissue and in the subcutaneous layer Percentage of wound debrided: 100 Instrument Used: 5mm curette Tissue Removed: Yellow slough, devitalized tissue Severity: Fat Layer Exposed Amount of bleeding with debridement: Mild Bleeding Controlled with: Compression and gauze Patient tolerated procedure: Patient tolerated procedure well Post-Debridement Measurements and Additional Note: Post-Debridement Measurements/Treatment WC - Nurse 1 - General Ulcer Assessment Start: 12/09/23 09:33 Freq: Status: Active Protocol: ONDINA Activity Type Activity Date Activity User E-sign Co-sign Detail Recorded Client Recorded Date Recorded By Document 12/09/23 09:33 RB Desktop 12/09/23 09:36 RB Document 12/23/23 09:38 RB Desktop 12/23/23 09:41 RB 12/09/23 12/23/23 09:33 09:38 - Today's Visit Information Type of service Follow-up Visit Follow-up Visit (Physician/APPLICATIONS SPECIALIST (Physician/APPLICATIONS SPECIALIST ) ) Arrival Mode Ambulatory, Ambulatory, Walker Walker Transfer Assistance None None Patient Identification Verified (Name & Yes Yes ) Patient Requires Transmission-Based No No Precautions Vital Signs Temperature (97.8 F-99.1 F) 96.5 F L 96.5 F L Temperature Source Temporal Temporal Pulse Rate (60-100) 82 70 Pulse Location Monitor Monitor Respiratory Rate (12-18) 18 18 Respiratory rate source Observation Observation Blood Pressure (90/60-120/80) 122/80 H 145/87 H Blood Pressure Mean (mm Hg) 94 106 Source Monitor Monitor Position Semi-Fowlers Semi-Fowlers Blood Pressure Location Left Arm Left Arm History Since Last Visit- (Skip if this is Patient's initial visit) Have you changed medications since your No No last visit? Any new allergies or adverse reactions No No Had a fall/change in ADL's that may No No increase risk of falls Signs or symptoms of abuse and/or No No neglect since last visit Have you been in the hospital since your No No last visit? Has dressing in place as prescribed Yes Yes Has compression in place as prescribed Yes No Has offloadiing in place as prescribed No No Experienced any changes in pain level or No No management Pain Scale: 0-10 Numeric Is Patient Pain Free? Yes Yes - Nurse 1 - General Ulcer Measurement Start: 12/09/23 09:33 Freq: Status: Active Protocol: Activity Type Activity Date Activity User E-sign Co-sign Detail Recorded Client Recorded Date Recorded By Document 12/09/23 09:33 RB Desktop 12/09/23 09:36 RB Document 12/23/23 09:38 RB Desktop 12/23/23 09:41 RB 12/09/23 12/23/23 09:33 09:38 Wound Center Nurse 1 #18 Left medial LE cluster -Combined with other wound No No -Current Size (cm) - Length 9 20.2 -Current Size (cm) - Width 16 10.5 -Current Size (cm) - Depth 0.1 0.1 -Total Square Cm 144 212.10 -Photo Taken Yes -Tunneling No No -Undermining/Tunneling No No -Circular Undermining No No -Exudate Amt Large Medium -Exudate Type Serosanguineous Serosanguineous -Wound Margin Distinct, Distinct, Outline Outline Attached Attached -Granulation Amt Medium (34-66%) Medium (34-66%) -Granulation Quality Lingle Lingle -Slough/Fibrin Yes Yes -Necrosis Amt Medium (34-66%) Medium (34-66%) -Necrotic Tissue Type Adherent Slough Adherent Slough -Structure Exposed N/A N/A -Texture (Marie-wound Skin Appearance) Assessed, Assessed Localized Edema -Moisture (Marie-wound Skin Appearance) Assessed Assessed -Color (Marie-wound Skin Appearance) Erythema Hemosiderin Staining -Temperature (Marie-wound Skin No Abnormality No Abnormality Appearance) (Pt Warm) (Pt Warm) -Tenderness on Palpation (Marie-wound No No Skin Appearance) -Ulcer Cleansing Wound Cleanser Wound Cleanser -Foul Odor after Cleansing No No -Anesthetic Used 4% Lidocaine 4% Lidocaine Solution Solution Lower Limb Edema Present Yes Yes Left Calf (cm) 42 42.5 Left Ankle (cm) 30 31 WC - Nurse 2 - General Ulcer CM Notes Start: 12/09/23 09:33 Freq: Status: Active Protocol: Activity Type Activity Date Activity User E-sign Co-sign Detail Recorded Client Recorded Date Recorded By Document 12/09/23 10:37 PL [id number] 12/09/23 10:38 PL Document 12/23/23 10:09 Desktop 12/23/23 10:13 12/09/23 12/23/23 10:37 10:09 Wound Center Nurse 2 #18 Left medial LE cluster -Time 09:42 10:10 -Correct Patient Yes Yes -Correct Side, Site, Position Yes Yes -Correct Procedure Yes Yes -Procedure Performed Yes Yes -Type of Procedure Debridement Debridement -Clinical Debridement Subcutaneous Subcutaneous -Tissue Removed Subcutaneous Subcutaneous -Post Debridement (cm) - Length 10 10 -Post Debridement (cm) - Width 20 17.5 -Post Debridement (cm) - Depth 0.2 0.1 -Total Square (Post) (cm) 200 175.0 -Area of Debridement (cm) - Length 10 10 -Area of Debridement (cm) - Width 20 17.5 -Total Square (Area) (cm) 200 175.0 -Tunneling No No -Undermining/Tunneling No No -Circular Undermining No No -Wound/Ulcer Outcome Not Healed Not Healed -Ulcer Cleansing Rinsed/ Rinsed/ Irrigated with Irrigated with Saline Saline -Foul Odor after Cleansing No No -Bioengineered Tissue No No -Bleeding Controlled with Pressure Pressure -Treatment Response Procedure Tolerated Well -Debridement - Subq, 1st 20sq cm Yes Yes -Debridement, SubQ, ea addt'l 20sq cm 9 8 or part thereof Pain Scale: 0-10 Numeric Is Patient Pain Free? Yes Yes - Nurse 3 - General Ulcer D/C NN Start: 12/09/23 09:33 Freq: Status: Active Protocol: Activity Type Activity Date Activity User E-sign Co-sign Detail Recorded Client Recorded Date Recorded By Document 12/09/23 11:45 RB [id number] 12/09/23 11:46 RB Document 12/23/23 10:22 KW Desktop 12/23/23 10:37 KW 12/09/23 12/23/23 11:45 10:22 Wound Care Center Nurse 3 #18 Left medial LE cluster -Ulcer Cleansing Wound Cleanser -Primary Dressing Applied Aquacel Extra Aquacel Extra, Optilok 8x12 -Other Dressing PT'S OWN SUPERABSORBER -Primary Dressing Covered/Secured with Dry Gauze & Dry Gauze & Roll Gauze, Roll Gauze, Secured with Secured with Tape Tape -Aquacel Extra 2 1 -Optilok 8x12 1 Right -Tubular Bandage Single Layer Single Layer -Size of Tubigrip Used Size E Size E -Size E ($) 1 1 Left -Tubular Bandage Single Layer -Size of Tubigrip Used Size E -Size E ($) 1 Treatment Response Procedure Tolerated Well Pain Scale: 0-10 Numeric Is Patient Pain Free? Yes Yes - Visit Discharge Discharge Condition Stable Stable Ambulatory Status Ambulatory, Walker Walker Transportation Private Auto Private Auto Medication Reconcilliation completed & No No provided to patient/care provider Clinical Summary of Care Provided Yes Yes Assessment/Plan Assessment/Plan (1) Lymphedema: CODE(S): I89.0 - Lymphedema, not elsewhere classified (2) Hypertension: CODE(S): I10 - Essential (primary) hypertension QUALIFIERS: Hypertension type: primary hypertension Qualified Code(s): I10 - Essential (primary) hypertension (3) Hyperlipidemia: CODE(S): E78.5 - Hyperlipidemia, unspecified QUALIFIERS: Hyperlipidemia type: mixed hyperlipidemia Qualified Code(s): E78.2 - Mixed hyperlipidemia (4) History of DVT (deep vein thrombosis): CODE(S): Z86.718 - Personal history of other venous thrombosis and embolism (5) Venous insufficiency (chronic) (peripheral): CODE(S): I87.2 - Venous insufficiency (chronic) (peripheral) (6) Venous ulcer of left lower extremity with varicose veins: CODE(S): I83.029 - Varicose veins of left lower extremity with ulcer of unspecified site (7) Edema: CODE(S): R60.9 - Edema, unspecified QUALIFIERS: Edema type: unspecified Qualified Code(s): R60.9 - Edema, unspecified PLAN: Plan Evaluation and debridement of left medial LE ulcer performed today in clinic as annotated above. At home wound-care instructions: Will dress his ulcers with Aquacel Extra dailyand cover with super absorber and gauze. If his ulcers are dry then would decrease frequency of changes to every other day. Continue compression with D tubigrips b/l. Due to the delayed progress in wound healing of his venous ulcers, we discussed applying for advanced wound healing product for healing his ulcer. Due to the size of his ulcer, Theraskin application approval is being requested from his insurance as it is medically necessary for salvaging his limb and healing his ulcer. He underwent 2 applications of Theraskin to this ulcer. Since applicationof Theraskin he has had much improvement in epitheliazation of his ulcer even though the overall size is not significantly changed there is progress. Off-loading: The patient was instructed to avoid pressure and friction on the affected areas. Reposition every 2 hours at minimum. Avoid prolonged standing and/or dangling of legs. When seated, feet should be elevated at chest level. Frequent ambulation is encouraged. Encouraged lymphedema pump use. Diet: Patient encouraged to increase protein intake while taking caution to avoid high carbohydrate and/or sugar intake. Labs/cultures/imaging: Wound culture showed 1+ Pseudomonas that is sensitive to Levofloxacin and completed treatment on 08/16/23. Follow-up: Return in 1 week for wound care follow up and have secondary dressingchanged by home health Tuesday and Tuesday. Return sooner or report to the emergency room should symptoms worsen, or new symptoms arise. Note: [employer] speech recognition hair tinter software was used to create portions of this document. Sound-alike and misspelled words, as well as other hair tinter errors may be contained in the documentation. 12/23/23 1437 <Electronically signed by Patricia Garcia DO> Cosigner Signature (if applicable): CC: ~ Signed [facility] Work Phone: [phone] Progress note Author Patricia Garcia [facility] December 09, 2023 1:16pm Note Date/Time December 09, 2023 1:16 pm [facility] [address] [place] [id number] Progress Note - Wound Care 12/09/23 1315 MR#: [id number] Acct: [id number] Name: ESTEBAN URBINA Rep #:[id number] : 1955 68 From: Patricia Gracia DO PCP: Dr. Patricia Garcia, Status:REG RCR Location: History of Present Illness Date of Service: 12/09/23 Chief Complaint: venous ulcers of left lower extremity History of Wound: Mauricio is a 68 yo gentleman who is here today for evaluation of ulcers to to his bilateral lower legs. He has been treated multiple times in [facility] at the wound healing center for similar ulcers. The left LE ulcer started after he developed increased swelling and blisters of left leg in October and the right leg started sometime at the end of October. He was seen at PCP's office a culture was taken and it was resistant to several antibiotics. He was treated initially with Levaquin but had myalgias and then was treated with doxycycline which he finished 2 days ago. He denies improvementand is having swelling to his left calf and thigh. He has been having swelling to both lower extremities for many years and it has worsened over the last few months. He has not been compliant with compression. He has had increased pain especially in the left leg. He has clear yellow drainage and redness without odor or warmth. He is anti-coagulated on coumadin. He has been washing with Dial soap and witch ifrah. He had been using Collagen at times and using Calcium Alginate and covering with ABD pads during October. He was treated with 3M compression and Aquacel Ag. He was referred to the wound center for ongoing treatment. His ulcers have moderate to heavy drainage. He was recently hospitalized for cellulitis and edema for the last 10 days. He was in the hospital from 11/30/22 until 12/09/22 for treatment of cellulitis and edema. He underwent treatment with Vancomycin and IV lasix and compression. Discharged on 12/09/22. He returned to his assisted living apartment on Tuesday12/21/22. Subjective Subjective Mauricio is a 68-year-old male with longstanding history of chronic venous ulcerationto the left lower extremity. He has been using Aquacel Extra and tolerating treatment well. There has been improvement in his ulcer overall. He reports significantly decreased drainage. He continues to use super absorber for heavy drainage and size D Tubigrips for compression. 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 He continues to use his lymphedema pumps but continues to have pain with use of these pumps. Objective Data Objective Data Vital Signs: Vital Signs Temp Pulse Resp BP 96.5 F L 82 18 122/80 H 12/09/23 09:33 12/09/23 09:33 12/09/23 09:33 12/09/23 09:33 Physical Exam Const alert, oriented x3 and no apparent distress General Appearance: cooperative and comfortable HEENT normocephalic and head/scalp atraumatic Lymph Lymphatic: lymphedema moderate Resp normal respiratory effort Effort and Inspection: able to speak in complete sentences Cardio regular rate and regular rhythm Extremity General Extremity: edema bilateral lower extremity Details: severe Skin Wounds: wounds noted Wound Narrative: as in clinical panel Psych mental status grossly normal, thought process normal, cooperative and affect normal Debridement Note Debridement Note Wound debrided: left medial LE ulcer Laterality: Left Type of Debridement: Excisional debridement Anesthesia Used: 4% Lidocaine Solution and Cetacaine Depth: Down to and including healthy tissue and in the subcutaneous layer Percentage of wound debrided: 100 Instrument Used: 7mm curette Tissue Removed: Yellow slough, devitalized tissue Severity: Fat Layer Exposed Amount of bleeding with debridement: Mild Bleeding Controlled with: Compression and gauze Patient tolerated procedure: Patient tolerated procedure well Post-Debridement Measurements and Additional Note: Post-Debridement Measurements/Treatment - Nurse 1 - General Ulcer Assessment Start: 12/09/23 09:33 Freq: Status: Active Protocol: ONDINA Activity Type Activity Date Activity User E-sign Co-sign Detail Recorded Client Recorded Date Recorded By Document 12/09/23 09:33 RB [employer] 12/09/23 09:36 RB 12/09/23 09:33 - Today's Visit Information Type of service Follow-up Visit (Physician/APPLICATIONS SPECIALIST ) Arrival Mode Ambulatory, Walker Transfer Assistance None Patient Identification Verified (Name & Yes ) Patient Requires Transmission-Based No Precautions Vital Signs Temperature (97.8 F-99.1 F) 96.5 F L Temperature Source Temporal Pulse Rate (60-100) 82 Pulse Location Monitor Respiratory Rate (12-18) 18 Respiratory rate source Observation Blood Pressure (90/60-120/80) 122/80 H Blood Pressure Mean (mm Hg) 94 Source Monitor Position Semi-Fowlers Blood Pressure Location Left Arm History Since Last Visit- (Skip if this is Patient's initial visit) Have you changed medications since your No last visit? Any new allergies or adverse reactions No Had a fall/change in ADL's that may No increase risk of falls Signs or symptoms of abuse and/or No neglect since last visit Have you been in the hospital since your No last visit? Has dressing in place as prescribed Yes Has compression in place as prescribed Yes Has offloadiing in place as prescribed No Experienced any changes in pain level or No management Pain Scale: 0-10 Numeric Is Patient Pain Free? Yes - Nurse 1 - General Ulcer Measurement Start: 12/09/23 09:33 Freq: Status: Active Protocol: Activity Type Activity Date Activity User E-sign Co-sign Detail Recorded Client Recorded Date Recorded By Document 12/09/23 09:33 RB [employer] 12/09/23 09:36 RB 12/09/23 09:33 Wound Center Nurse 1 #18 Left medial LE cluster -Combined with other wound No -Current Size (cm) - Length 9 -Current Size (cm) - Width 16 -Current Size (cm) - Depth 0.1 -Total Square Cm 144 -Photo Taken Yes -Tunneling No -Undermining/Tunneling No -Circular Undermining No -Exudate Amt Large -Exudate Type Serosanguineous -Wound Margin Distinct, Outline Attached -Granulation Amt Medium (34-66%) -Granulation Quality Lingle -Slough/Fibrin Yes -Necrosis Amt Medium (34-66%) -Necrotic Tissue Type Adherent Slough -Structure Exposed N/A -Texture (Marie-wound Skin Appearance) Assessed, Localized Edema -Moisture (Marie-wound Skin Appearance) Assessed -Color (Marie-wound Skin Appearance) Erythema -Temperature (Marie-wound Skin No Abnormality Appearance) (Pt Warm) -Tenderness on Palpation (Marie-wound No Skin Appearance) -Ulcer Cleansing Wound Cleanser -Foul Odor after Cleansing No -Anesthetic Used 4% Lidocaine Solution Lower Limb Edema Present Yes Left Calf (cm) 42 Left Ankle (cm) 30 WC - Nurse 2 - General Ulcer CM Notes Start: 12/09/23 09:33 Freq: Status: Active Protocol: Activity Type Activity Date Activity User E-sign Co-sign Detail Recorded Client Recorded Date Recorded By Document 12/09/23 10:37 PL [id number] 12/09/23 10:38 PL 12/09/23 10:37 Wound Center Nurse 2 #18 Left medial LE cluster -Time 09:42 -Correct Patient Yes -Correct Side, Site, Position Yes -Correct Procedure Yes -Procedure Performed Yes -Type of Procedure Debridement -Clinical Debridement Subcutaneous -Tissue Removed Subcutaneous -Post Debridement (cm) - Length 10 -Post Debridement (cm) - Width 20 -Post Debridement (cm) - Depth 0.2 -Total Square (Post) (cm) 200 -Area of Debridement (cm) - Length 10 -Area of Debridement (cm) - Width 20 -Total Square (Area) (cm) 200 -Tunneling No -Undermining/Tunneling No -Circular Undermining No -Wound/Ulcer Outcome Not Healed -Ulcer Cleansing Rinsed/ Irrigated with Saline -Foul Odor after Cleansing No -Bioengineered Tissue No -Bleeding Controlled with Pressure -Treatment Response Procedure Tolerated Well -Debridement - Subq, 1st 20sq cm Yes -Debridement, SubQ, ea addt'l 20sq cm 9 or part thereof Pain Scale: 0-10 Numeric Is Patient Pain Free? Yes DEBBIE - Nurse 3 - General Ulcer D/C NN Start: 12/09/23 09:33 Freq: Status: Active Protocol: Activity Type Activity Date Activity User E-sign Co-sign Detail Recorded Client Recorded Date Recorded By Document 12/09/23 11:45 RB [id number] 12/09/23 11:46 RB 12/09/23 11:45 Wound Care Center Nurse 3 #18 Left medial LE cluster -Ulcer Cleansing Wound Cleanser -Primary Dressing Applied Aquacel Extra -Other Dressing PT'S OWN SUPERABSORBER -Primary Dressing Covered/Secured with Dry Gauze & Roll Gauze, Secured with Tape -Aquacel Extra 2 Right -Tubular Bandage Single Layer -Size of Tubigrip Used Size E -Size E ($) 1 Left -Tubular Bandage Single Layer -Size of Tubigrip Used Size E -Size E ($) 1 Treatment Response Procedure Tolerated Well Pain Scale: 0-10 Numeric Is Patient Pain Free? Yes WC - Visit Discharge Discharge Condition Stable Ambulatory Status Ambulatory, Walker Transportation Private Auto Medication Reconcilliation completed & No provided to patient/care provider Clinical Summary of Care Provided Yes Assessment/Plan Assessment/Plan (1) Lymphedema: CODE(S): I89.0 - Lymphedema, not elsewhere classified (2) Hypertension: CODE(S): I10 - Essential (primary) hypertension QUALIFIERS: Hypertension type: primary hypertension Qualified Code(s): I10 - Essential (primary) hypertension (3) Hyperlipidemia: CODE(S): E78.5 - Hyperlipidemia, unspecified QUALIFIERS: Hyperlipidemia type: mixed hyperlipidemia Qualified Code(s): E78.2 - Mixed hyperlipidemia (4) History of DVT (deep vein thrombosis): CODE(S): Z86.718 - Personal history of other venous thrombosis and embolism (5) Venous insufficiency (chronic) (peripheral): CODE(S): I87.2 - Venous insufficiency (chronic) (peripheral) (6) Venous ulcer of left lower extremity with varicose veins: CODE(S): I83.029 - Varicose veins of left lower extremity with ulcer of unspecified site (7) Edema: CODE(S): R60.9 - Edema, unspecified QUALIFIERS: Edema type: unspecified Qualified Code(s): R60.9 - Edema, unspecified PLAN: Plan Evaluation and debridement of left medial LE ulcer performed today in clinic as annotated above. At home wound-care instructions: Will dress his ulcers with Aquacel Extra dailyand cover with super absorber and gauze. If his ulcers are dry then would decrease frequency of changes to every other day. Continue compression with D tubigrips b/l. Due to the delayed progress in wound healing of his venous ulcers, we discussed applying for advanced wound healing product for healing his ulcer. Due to the size of his ulcer, Theraskin application approval is being requested from his insurance as it is medically necessary for salvaging his limb and healing his ulcer. He underwent 2 applications of Theraskin to this ulcer. Since applicationof Theraskin he has had much improvement in epitheliazation of his ulcer even though the overall size is not significantly changed there is progress. Off-loading: The patient was instructed to avoid pressure and friction on the affected areas. Reposition every 2 hours at minimum. Avoid prolonged standing and/or dangling of legs. When seated, feet should be elevated at chest level. Frequent ambulation is encouraged. Encouraged lymphedema pump use. Diet: Patient encouraged to increase protein intake while taking caution to avoid high carbohydrate and/or sugar intake. Labs/cultures/imaging: Wound culture showed 1+ Pseudomonas that is sensitive to Levofloxacin and completed treatment on 08/16/23. Follow-up: Return in 1 week for wound care follow up and have secondary dressingchanged by home health Tuesday and Tuesday. Return sooner or report to the emergency room should symptoms worsen, or new symptoms arise. Note: [employer] speech recognition hair tinter software was used to create portions of this document. Sound-alike and misspelled words, as well as other hair tinter errors may be contained in the documentation. 12/09/23 1316 <Electronically signed by Patricia Garcia DO> Cosigner Signature (if applicable): CC: ~ Signed [facility] Work Phone: [phone] Progress note Author Patricia Garcia [facility] December 02, 2023 1:18pm Note Date/Time December 02, 2023 1:19pm [facility] [address] [place] [id number] Progress Note - Wound Care 12/02/23 1315 MR#: [id number] Acct: [id number] Name: ESTEBAN URBINA Rep #:[id number] : 1955 68 From: Patricia Garcia DO PCP: Dr. Patricia Malys, DO Status:REG RCR Location: History of Present Illness Date of Service: 12/02/23 Chief Complaint: venous ulcers of left lower extremity History of Wound: Mauricio is a 68 yo gentleman who is here today for evaluation of ulcers to to his bilateral lower legs. [facility]. The left LE ulcer started after he developed increased swelling and blisters of left leg in October and the right leg started sometime at the end of October. He was seen at PCP's office a culture was taken and it was resistant to several antibiotics. He was treated initially with Levaquin but had myalgias and then was treated with doxycycline which he finished 2 days ago. He denies improvementand is having swelling to his left calf and thigh. He has been having swelling to both lower extremities for many years and it has worsened over the last few months. He has not been compliant with compression. He has had increased pain especially in the left leg. He has clear yellow drainage and redness without odor or warmth. He is anti-coagulated on coumadin. He has been washing with Dial soap and witch ifrah. He had been using Collagen at times and using Calcium Alginate and covering with ABD pads during October. He was treated with 3M compression and Aquacel Ag. He was referred to the wound center for ongoing treatment. His ulcers have moderate to heavy drainage. He was recently hospitalized for cellulitis and edema for the last 10 days. He was in the hospital from 11/30/22 until 12/09/22 for treatment of cellulitis and edema. He underwent treatment with Vancomycin and IV lasix and compression. Discharged on 12/09/22. He returned to his assisted living apartment on Tuesday12/21/22. Subjective Subjective Mauricio is a 68-year-old male with longstanding history of chronic venous ulcerationto the left lower extremity. He has been using Aquacel Extra and tolerating treatment well. There has been improvement in his ulcer overall. He reports significantly decreased drainage. He continues to use super absorber for heavy drainage and size D Tubigrips for compression. 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 He continues to use his lymphedema pumps but continues to have pain with use of these pumps. Objective Data Objective Data Vital Signs: Vital Signs Temp Pulse Resp BP O2 Del Method 96.4 F L 65 18 107/66 Room Air 12/02/23 09:41 12/02/23 09:41 12/02/23 09:41 12/02/23 09:41 12/02/23 09:41 Oxygen Delivery Method Room Air Physical Exam Const alert, oriented x3 and no apparent distress General Appearance: cooperative and comfortable HEENT normocephalic and head/scalp atraumatic Lymph Lymphatic: lymphedema moderate Resp normal respiratory effort Effort and Inspection: able to speak in complete sentences Cardio regular rate and regular rhythm Extremity General Extremity: edema bilateral lower extremity Details: severe Skin Wounds: wounds noted Wound Narrative: as in clinical panel Psych mental status grossly normal, thought process normal, cooperative and affect normal Debridement Note Debridement Note Wound debrided: left medial LE ulcer Laterality: Left Type of Debridement: Excisional debridement Anesthesia Used: 4% Lidocaine Solution and Cetacaine Depth: Down to and including healthy tissue and in the subcutaneous layer Percentage of wound debrided: 100 Instrument Used: 5mm curette Tissue Removed: Yellow slough, devitalized tissue Severity: Fat Layer Exposed Amount of bleeding with debridement: Mild Bleeding Controlled with: Compression and gauze Patient tolerated procedure: Patient tolerated procedure well Post-Debridement Measurements and Additional Note: Post-Debridement Measurements/Treatment - Nurse 1 - General Ulcer Assessment Start: 11/11/23 10:34 Freq: Status: Active Protocol: ONDINA Activity Type Activity Date Activity User E-sign Co-sign Detail Recorded Client Recorded Date Recorded By Document 11/11/23 10:34 RB Desktop 11/11/23 10:36 RB Document 11/18/23 09:39 KW Desktop 11/18/23 10:00 KW Document 11/25/23 09:14 KW Desktop 11/25/23 09:26 KW Document 12/02/23 09:41 KW Desktop 12/02/23 09:52 KW 11/11/23 11/18/23 11/25/23 10:34 09:39 09:14 - Today's Visit Information Type of service Follow-up Visit Follow-up Visit Follow-up Visit (Physician/APPLICATIONS SPECIALIST (Physician/APPLICATIONS SPECIALIST (Physician/APPLICATIONS SPECIALIST ) ) ) Arrival Mode Ambulatory Ambulatory, Ambulatory, Walker Walker Transfer Assistance None Patient Identification Verified (Name & Yes Yes Yes ) Patient Requires Transmission-Based No Precautions Vital Signs Temperature (97.8 F-99.1 F) 96 F L 96.9 F L 96.1 F L Temperature Source Temporal Temporal Temporal Pulse Rate (60-100) 65 65 79 Pulse Location Monitor Monitor Monitor Respiratory Rate (12-18) 18 18 18 Respiratory rate source Observation Observation Observation Oxygen Delivery Method Room Air Room Air Blood Pressure (90/60-120/80) 113/67 121/64 H 106/62 Blood Pressure Mean (mm Hg) 82 83 76 Source Monitor Monitor Monitor Position Semi-Fowlers Semi-Fowlers Sitting Blood Pressure Location Left Arm Right Forearm Right Arm History Since Last Visit- (Skip if this is Patient's initial visit) Have you changed medications since your No No No last visit? Any new allergies or adverse reactions No No No Had a fall/change in ADL's that may No No No increase risk of falls Signs or symptoms of abuse and/or No No No neglect since last visit Have you been in the hospital since your No No No last visit? Has dressing in place as prescribed Yes Yes Yes Has compression in place as prescribed Yes Yes Yes Has offloadiing in place as prescribed No No N/A Experienced any changes in pain level or No No No management Left Footwear Regular Shoe Regular Shoe Right Footwear Regular Shoe Regular Shoe Pain Scale: 0-10 Numeric Is Patient Pain Free? Yes Yes Yes 12/02/23 09:41 WC - Today's Visit Information Type of service Follow-up Visit (Physician/APPLICATIONS SPECIALIST ) Arrival Mode Ambulatory, Walker Transfer Assistance Patient Identification Verified (Name & Yes ) Patient Requires Transmission-Based Precautions Vital Signs Temperature (97.8 F-99.1 F) 96.4 F L Temperature Source Temporal Pulse Rate (60-100) 65 Pulse Location Monitor Respiratory Rate (12-18) 18 Respiratory rate source Observation Oxygen Delivery Method Room Air Blood Pressure (90/60-120/80) 107/66 Blood Pressure Mean (mm Hg) 79 Source Monitor Position Semi-Fowlers Blood Pressure Location Right Forearm History Since Last Visit- (Skip if this is Patient's initial visit) Have you changed medications since your No last visit? Any new allergies or adverse reactions No Had a fall/change in ADL's that may No increase risk of falls Signs or symptoms of abuse and/or No neglect since last visit Have you been in the hospital since your No last visit? Has dressing in place as prescribed Yes Has compression in place as prescribed Yes Has offloadiing in place as prescribed N/A Experienced any changes in pain level or No management Left Footwear Regular Shoe Right Footwear Regular Shoe Pain Scale: 0-10 Numeric Is Patient Pain Free? Yes WC - Nurse 1 - General Ulcer Measurement Start: 11/11/23 10:34 Freq: Status: Active Protocol: Activity Type Activity Date Activity User E-sign Co-sign Detail Recorded Client Recorded Date Recorded By Document 11/11/23 10:34 RB Desktop 11/11/23 10:36 RB Document 11/18/23 09:39 KW Desktop 11/18/23 10:00 KW Document 11/25/23 09:14 KW Desktop 11/25/23 09:26 KW Document 12/02/23 09:41 KW Desktop 12/02/23 09:52 KW 11/11/23 11/18/23 11/25/23 10:34 09:39 09:14 Wound Center Nurse 1 #18 Left medial LE cluster -Combined with other wound No -Combined with (Name of Wound-Exactly 18.5 as it is documented) -Current Size (cm) - Length 13 10 10.5 -Current Size (cm) - Width 15 18 0.1 -Current Size (cm) - Depth 0.1 0.1 -Total Square Cm 195 180 1.05 -Tunneling No -Undermining/Tunneling No -Circular Undermining No -Exudate Amt Medium Large Medium -Exudate Type Serosanguineous Serosanguineous Serosanguineous -Wound Margin Distinct, Distinct, Distinct, Outline Outline Outline Attached Attached Attached -Granulation Amt Medium (34-66%) Large (67-100%) Large (67-100%) -Granulation Quality Lingle Red Red -Slough/Fibrin Yes -Necrosis Amt Large (67-100%) Small (1-33%) Small (1-33%) -Necrotic Tissue Type Adherent Slough Adherent Slough Adherent Slough -Structure Exposed N/A -Texture (Marie-wound Skin Appearance) Assessed Assessed Assessed -Moisture (Marie-wound Skin Appearance) Assessed Assessed,Dry/ Assessed, Scaly Maceration,Dry/ Scaly -Color (Marie-wound Skin Appearance) Assessed, Assessed, Assessed, Hemosiderin Erythema Erythema Staining -Temperature (Marie-wound Skin No Abnormality No Abnormality No Abnormality Appearance) (Pt Warm) (Pt Warm) (Pt Warm) -Tenderness on Palpation (Marie-wound No Skin Appearance) -Ulcer Cleansing Wound Cleanser Soap and Water Rinsed/ Irrigated with Saline -Foul Odor after Cleansing No No -Anesthetic Used 4% Lidocaine 4% Lidocaine 4% Lidocaine Solution Solution Solution Lower Limb Edema Present Yes Left Calf (cm) 40.2 38 43.5 Left Ankle (cm) 28.5 30 29.4 12/02/23 09:41 Wound Center Nurse 1 #18 Left medial LE cluster -Combined with other wound -Combined with (Name of Wound-Exactly as it is documented) -Current Size (cm) - Length 12 -Current Size (cm) - Width 18.5 -Current Size (cm) - Depth 0.2 -Total Square Cm 222.0 -Tunneling -Undermining/Tunneling -Circular Undermining -Exudate Amt Large -Exudate Type Serosanguineous -Wound Margin Distinct, Outline Attached -Granulation Amt Large (67-100%) -Granulation Quality Red -Slough/Fibrin -Necrosis Amt -Necrotic Tissue Type -Structure Exposed -Texture (Marie-wound Skin Appearance) Assessed -Moisture (Marie-wound Skin Appearance) Assessed -Color (Marie-wound Skin Appearance) Assessed, Erythema -Temperature (Marie-wound Skin No Abnormality Appearance) (Pt Warm) -Tenderness on Palpation (Marie-wound Skin Appearance) -Ulcer Cleansing Soap and Water -Foul Odor after Cleansing No -Anesthetic Used 4% Lidocaine Solution Lower Limb Edema Present Left Calf (cm) 43 Left Ankle (cm) 23 - Nurse 2 - General Ulcer CM Notes Start: 11/11/23 10:34 Freq: Status: Active Protocol: Activity Type Activity Date Activity User E-sign Co-sign Detail Recorded Client Recorded Date Recorded By Document 11/11/23 10:40 [email or web address] 11/11/23 11:09 Document 11/18/23 10:03 [id number] 11/18/23 10:24 Document 11/25/23 09:59 Desktop 11/25/23 10:01 Document 12/02/23 10:00 Desktop 12/02/23 10:27 11/11/23 11/18/23 11/25/23 10:40 10:03 09:59 Wound Center Nurse 2 #18 Left medial LE cluster -Time 10:56 10:04 09:59 -Correct Patient Yes Yes Yes -Correct Side, Site, Position Yes Yes Yes -Correct Procedure Yes Yes Yes -Procedure Performed Yes Yes Yes -Type of Procedure Debridement Debridement Debridement -Clinical Debridement Subcutaneous Subcutaneous Subcutaneous -Tissue Removed Subcutaneous Subcutaneous Subcutaneous -Post Debridement (cm) - Length 11.5 11.2 10.5 -Post Debridement (cm) - Width 17.5 17.5 18.7 -Post Debridement (cm) - Depth 0.1 0.1 0.1 -Total Square (Post) (cm) 201.25 196.00 196.35 -Area of Debridement (cm) - Length 11.5 11.2 10.5 -Area of Debridement (cm) - Width 17.5 17.5 18.7 -Total Square (Area) (cm) 201.25 196.00 196.35 -Tunneling No No No -Undermining/Tunneling No No No -Circular Undermining No No No -Wound/Ulcer Outcome Not Healed Not Healed Not Healed -Ulcer Cleansing Rinsed/ Rinsed/ Rinsed/ Irrigated with Irrigated with Irrigated with Saline Saline Saline -Foul Odor after Cleansing No No No -Bioengineered Tissue No No No -Bleeding Controlled with Pressure Pressure Pressure -Treatment Response Procedure Procedure Procedure Tolerated Well Tolerated Well Tolerated Well -Debridement - Subq, 1st 20sq cm Yes Yes Yes -Debridement, SubQ, ea addt'l 20sq cm 10 9 9 or part thereof Pain Scale: 0-10 Numeric Is Patient Pain Free? Yes Yes Yes 12/02/23 10:00 Wound Center Nurse 2 #18 Left medial LE cluster -Time 10:06 -Correct Patient Yes -Correct Side, Site, Position Yes -Correct Procedure Yes -Procedure Performed Yes -Type of Procedure Debridement -Clinical Debridement Subcutaneous -Tissue Removed Subcutaneous -Post Debridement (cm) - Length 11 -Post Debridement (cm) - Width 17 -Post Debridement (cm) - Depth 0.1 -Total Square (Post) (cm) 187 -Area of Debridement (cm) - Length 11 -Area of Debridement (cm) - Width 17 -Total Square (Area) (cm) 187 -Tunneling No -Undermining/Tunneling No -Circular Undermining No -Wound/Ulcer Outcome Not Healed -Ulcer Cleansing Rinsed/ Irrigated with Saline -Foul Odor after Cleansing No -Bioengineered Tissue No -Bleeding Controlled with Pressure -Treatment Response Procedure Tolerated Well -Debridement - Subq, 1st 20sq cm Yes -Debridement, SubQ, ea addt'l 20sq cm 9 or part thereof Pain Scale: 0-10 Numeric Is Patient Pain Free? Yes WC - Nurse 3 - General Ulcer D/C NN Start: 11/11/23 10:34 Freq: Status: Active Protocol: Activity Type Activity Date Activity User E-sign Co-sign Detail Recorded Client Recorded Date Recorded By Document 11/18/23 10:30 KW Desktop 11/18/23 10:31 KW Document 11/25/23 10:11 KW Desktop 11/25/23 10:13 KW Document 12/02/23 10:32 KW Desktop 12/02/23 10:32 KW 11/18/23 11/25/23 12/02/23 10:30 10:11 10:32 Wound Care Center Nurse 3 #18 Left medial LE cluster -Primary Dressing Applied Aquacel Extra, Aquacel Extra, Aquacel Extra, Optilok 6.5x10 Optilok 8x12 Other -Other Dressing pt own optilock -Primary Dressing Covered/Secured with Dry Gauze & Dry Gauze & Dry Gauze & Roll Gauze, Roll Gauze, Roll Gauze, Secured with Secured with Secured with Tape Tape Tape -Aquacel Extra 1 2 1 -Optilok 6.5x10 1 -Optilok 8x12 1 Left -Compression Wrap Kishore Wrap Kishore Wrap -Tubular Bandage Single Layer Single Layer -Size of Tubigrip Used Size E Size F -Size E ($) 1 -Size F ($) 1 Pain Scale: 0-10 Numeric Is Patient Pain Free? Yes Yes Yes WC - Visit Discharge Discharge Condition Stable Stable Stable Ambulatory Status Ambulatory, Ambulatory, Ambulatory, Walker Walker Walker Transportation Private Auto Private Auto Medication Reconcilliation completed & No No No provided to patient/care provider Clinical Summary of Care Provided Yes Yes Yes Assessment/Plan Assessment/Plan (1) Lymphedema: CODE(S): I89.0 - Lymphedema, not elsewhere classified (2) Hypertension: CODE(S): I10 - Essential (primary) hypertension QUALIFIERS: Hypertension type: primary hypertension Qualified Code(s): I10 - Essential (primary) hypertension (3) Hyperlipidemia: CODE(S): E78.5 - Hyperlipidemia, unspecified QUALIFIERS: Hyperlipidemia type: mixed hyperlipidemia Qualified Code(s): E78.2 - Mixed hyperlipidemia (4) History of DVT (deep vein thrombosis): CODE(S): Z86.718 - Personal history of other venous thrombosis and embolism (5) Venous insufficiency (chronic) (peripheral): CODE(S): I87.2 - Venous insufficiency (chronic) (peripheral) (6) Venous ulcer of left lower extremity with varicose veins: CODE(S): I83.029 - Varicose veins of left lower extremity with ulcer of unspecified site (7) Edema: CODE(S): R60.9 - Edema, unspecified QUALIFIERS: Edema type: unspecified Qualified Code(s): R60.9 - Edema, unspecified PLAN: Plan Evaluation and debridement of left medial LE ulcer performed today in clinic as annotated above. At home wound-care instructions: Will dress his ulcers with Aquacel Extra dailyand cover with super absorber and gauze. If his ulcers are dry then would decrease frequency of changes to every other day. Continue compression with D tubigrips b/l. Due to the delayed progress in wound healing of his venous ulcers, we discussed applying for advanced wound healing product for healing his ulcer. Due to the size of his ulcer, Theraskin application approval is being requested from his insurance as it is medically necessary for salvaging his limb and healing his ulcer. He underwent 2 applications of Theraskin to this ulcer. Since applicationof Theraskin he has had much improvement in epitheliazation of his ulcer even though the overall size is not significantly changed there is progress. Off-loading: The patient was instructed to avoid pressure and friction on the affected areas. Reposition every 2 hours at minimum. Avoid prolonged standing and/or dangling of legs. When seated, feet should be elevated at chest level. Frequent ambulation is encouraged. Encouraged lymphedema pump use. Diet: Patient encouraged to increase protein intake while taking caution to avoid high carbohydrate and/or sugar intake. Labs/cultures/imaging: Wound culture showed 1+ Pseudomonas that is sensitive to Levofloxacin and completed treatment on 08/16/23. Follow-up: Return in 1 week for wound care follow up and have secondary dressingchanged by [facility] Tuesday and Tuesday. Return sooner or report to the emergency room should symptoms worsen, or new symptoms arise. Note: [employer] speech recognition hair tinter software was used to create portions of this document. Sound-alike and misspelled words, as well as other hair tinter errors may be contained in the documentation. 12/02/23 1318 <Electronically signed by Patricia Garcia DO> Cosigner Signature (if applicable): CC: ~ Signed [facility] Work Phone: [phone] Progress note Author Patricia Garcia [facility] November 25, 2023 10:36am Note Date/Time November 25, 2023 10:36am [facility] [address] [place] [address] Progress Note - Wound Care 11/25/23 1033 MR#: [id number] Acct: [id number] Name: ESTEBAN URBINA Rep #:[id number] : 1955 68 From: Patricia Garcia DO PCP: Dr. Patricia Garcia DO Status:REG RCR Location: History of Present Illness Date of Service: 11/25/23 Chief Complaint: venous ulcers of left lower extremity History of Wound: Mauricio is a 68 yo gentleman who is here today for evaluation of ulcers to to his bilateral lower legs. [facility]. The left LE ulcer started after he developed increased swelling and blisters of left leg in October and the right leg started sometime at the end of October. He was seen at PCP's office a culture was taken and it was resistant to several antibiotics. He was treated initially with Levaquin but had myalgias and then was treated with doxycycline which he finished 2 days ago. He denies improvementand is having swelling to his left calf and thigh. He has been having swelling to both lower extremities for many years and it has worsened over the last few months. He has not been compliant with compression. He has had increased pain especially in the left leg. He has clear yellow drainage and redness without odor or warmth. He is anti-coagulated on coumadin. He has been washing with Dial soap and witch ifrah. He had been using Collagen at times and using Calcium Alginate and covering with ABD pads during October. He was treated with 3M compression and Aquacel Ag. He was referred to the wound center for ongoing treatment. His ulcers have moderate to heavy drainage. He was recently hospitalized for cellulitis and edema for the last 10 days. He was in the hospital from 11/30/22 until 12/09/22 for treatment of cellulitis and edema. He underwent treatment with Vancomycin and IV lasix and compression. Discharged on 12/09/22. He returned to his assisted living apartment on Tuesday12/21/22. Subjective Subjective Mauricio is a 68-year-old male with longstanding history of chronic venous ulcerationto the left lower extremity. He has been using Aquacel Extra and tolerating treatment well. There has been improvement in his ulcer overall. He reports significantly decreased drainage. He continues to use super absorber for heavy drainage and size D Tubigrips for compression. 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 He continues to use his lymphedema pumps but continues to have pain with use of these pumps. Objective Data Objective Data Vital Signs: Vital Signs Temp Pulse Resp BP O2 Del Method 96.1 F L 79 18 106/62 Room Air 11/25/23 09:14 11/25/23 09:14 11/25/23 09:14 11/25/23 09:14 11/25/23 09:14 Oxygen Delivery Method Room Air Physical Exam Const alert, oriented x3 and no apparent distress General Appearance: cooperative and comfortable HEENT normocephalic and head/scalp atraumatic Lymph Lymphatic: lymphedema moderate Resp normal respiratory effort Effort and Inspection: able to speak in complete sentences Cardio regular rate and regular rhythm Extremity General Extremity: edema bilateral lower extremity Details: severe Skin Wounds: wounds noted Wound Narrative: as in clinical panel Psych mental status grossly normal, thought process normal, cooperative and affect normal Debridement Note Debridement Note Wound debrided: left medial LE ulcer Laterality: Left Type of Debridement: Excisional debridement Anesthesia Used: 4% Lidocaine Solution and Cetacaine Depth: Down to and including healthy tissue and in the subcutaneous layer Percentage of wound debrided: 100 Instrument Used: 7mm curette Tissue Removed: Yellow slough, devitalized tissue Severity: Fat Layer Exposed Amount of bleeding with debridement: Mild Bleeding Controlled with: Compression and gauze Patient tolerated procedure: Patient tolerated procedure well Post-Debridement Measurements and Additional Note: Post-Debridement Measurements/Treatment WC - Nurse 1 - General Ulcer Assessment Start: 11/11/23 10:34 Freq: Status: Active Protocol: WC.[email or web address] Activity Type Activity Date Activity User E-sign Co-sign Detail Recorded Client Recorded Date Recorded By Document 11/11/23 10:34 RB Desktop 11/11/23 10:36 RB Document 11/18/23 09:39 KW Desktop 11/18/23 10:00 KW Document 11/25/23 09:14 KW Desktop 11/25/23 09:26 KW 11/11/23 11/18/23 11/25/23 10:34 09:39 09:14 WC - Today's Visit Information Type of service Follow-up Visit Follow-up Visit Follow-up Visit (Physician/APPLICATIONS SPECIALIST (Physician/APPLICATIONS SPECIALIST (Physician/APPLICATIONS SPECIALIST ) ) ) Arrival Mode Ambulatory Ambulatory, Ambulatory, Walker Walker Transfer Assistance None Patient Identification Verified (Name & Yes Yes Yes ) Patient Requires Transmission-Based No Precautions Vital Signs Temperature (97.8 F-99.1 F) 96 F L 96.9 F L 96.1 F L Temperature Source Temporal Temporal Temporal Pulse Rate (60-100) 65 65 79 Pulse Location Monitor Monitor Monitor Respiratory Rate (12-18) 18 18 18 Respiratory rate source Observation Observation Observation Oxygen Delivery Method Room Air Room Air Blood Pressure (90/60-120/80) 113/67 121/64 H 106/62 Blood Pressure Mean (mm Hg) 82 83 76 Source Monitor Monitor Monitor Position Semi-Fowlers Semi-Fowlers Sitting Blood Pressure Location Left Arm Right Forearm Right Arm History Since Last Visit- (Skip if this is Patient's initial visit) Have you changed medications since your No No No last visit? Any new allergies or adverse reactions No No No Had a fall/change in ADL's that may No No No increase risk of falls Signs or symptoms of abuse and/or No No No neglect since last visit Have you been in the hospital since your No No No last visit? Has dressing in place as prescribed Yes Yes Yes Has compression in place as prescribed Yes Yes Yes Has offloadiing in place as prescribed No No N/A Experienced any changes in pain level or No No No management Left Footwear Regular Shoe Regular Shoe Right Footwear Regular Shoe Regular Shoe Pain Scale: 0-10 Numeric Is Patient Pain Free? Yes Yes Yes - Nurse 1 - General Ulcer Measurement Start: 11/11/23 10:34 Freq: Status: Active Protocol: Activity Type Activity Date Activity User E-sign Co-sign Detail Recorded Client Recorded Date Recorded By Document 11/11/23 10:34 RB Desktop 11/11/23 10:36 RB Document 11/18/23 09:39 KW Desktop 11/18/23 10:00 KW Document 11/25/23 09:14 KW Desktop 11/25/23 09:26 KW 11/11/23 11/18/23 11/25/23 10:34 09:39 09:14 Wound Center Nurse 1 #18 Left medial LE cluster -Combined with other wound No -Combined with (Name of Wound-Exactly 18.5 as it is documented) -Current Size (cm) - Length 13 10 10.5 -Current Size (cm) - Width 15 18 0.1 -Current Size (cm) - Depth 0.1 0.1 -Total Square Cm 195 180 1.05 -Tunneling No -Undermining/Tunneling No -Circular Undermining No -Exudate Amt Medium Large Medium -Exudate Type Serosanguineous Serosanguineous Serosanguineous -Wound Margin Distinct, Distinct, Distinct, Outline Outline Outline Attached Attached Attached -Granulation Amt Medium (34-66%) Large (67-100%) Large (67-100%) -Granulation Quality Lingle Red Red -Slough/Fibrin Yes -Necrosis Amt Large (67-100%) Small (1-33%) Small (1-33%) -Necrotic Tissue Type Adherent Slough Adherent Slough Adherent Slough -Structure Exposed N/A -Texture (Marie-wound Skin Appearance) Assessed Assessed Assessed -Moisture (Marie-wound Skin Appearance) Assessed Assessed,Dry/ Assessed, Scaly Maceration,Dry/ Scaly -Color (Marie-wound Skin Appearance) Assessed, Assessed, Assessed, Hemosiderin Erythema Erythema Staining -Temperature (Marie-wound Skin No Abnormality No Abnormality No Abnormality Appearance) (Pt Warm) (Pt Warm) (Pt Warm) -Tenderness on Palpation (Marie-wound No Skin Appearance) -Ulcer Cleansing Wound Cleanser Soap and Water Rinsed/ Irrigated with Saline -Foul Odor after Cleansing No No -Anesthetic Used 4% Lidocaine 4% Lidocaine 4% Lidocaine Solution Solution Solution Lower Limb Edema Present Yes Left Calf (cm) 40.2 38 43.5 Left Ankle (cm) 28.5 30 29.4 - Nurse 2 - General Ulcer CM Notes Start: 11/11/23 10:34 Freq: Status: Active Protocol: Activity Type Activity Date Activity User E-sign Co-sign Detail Recorded Client Recorded Date Recorded By Document 11/11/23 10:40 GM Desktop 11/11/23 11:09 Document 11/18/23 10:03 [id number] 11/18/23 10:24 GM Document 11/25/23 09:59 Desktop 11/25/23 10:01 11/11/23 11/18/23 11/25/23 10:40 10:03 09:59 Wound Center Nurse 2 #18 Left medial LE cluster -Time 10:56 10:04 09:59 -Correct Patient Yes Yes Yes -Correct Side, Site, Position Yes Yes Yes -Correct Procedure Yes Yes Yes -Procedure Performed Yes Yes Yes -Type of Procedure Debridement Debridement Debridement -Clinical Debridement Subcutaneous Subcutaneous Subcutaneous -Tissue Removed Subcutaneous Subcutaneous Subcutaneous -Post Debridement (cm) - Length 11.5 11.2 10.5 -Post Debridement (cm) - Width 17.5 17.5 18.7 -Post Debridement (cm) - Depth 0.1 0.1 0.1 -Total Square (Post) (cm) 201.25 196.00 196.35 -Area of Debridement (cm) - Length 11.5 11.2 10.5 -Area of Debridement (cm) - Width 17.5 17.5 18.7 -Total Square (Area) (cm) 201.25 196.00 196.35 -Tunneling No No No -Undermining/Tunneling No No No -Circular Undermining No No No -Wound/Ulcer Outcome Not Healed Not Healed Not Healed -Ulcer Cleansing Rinsed/ Rinsed/ Rinsed/ Irrigated with Irrigated with Irrigated with Saline Saline Saline -Foul Odor after Cleansing No No No -Bioengineered Tissue No No No -Bleeding Controlled with Pressure Pressure Pressure -Treatment Response Procedure Procedure Procedure Tolerated Well Tolerated Well Tolerated Well -Debridement - Subq, 1st 20sq cm Yes Yes Yes -Debridement, SubQ, ea addt'l 20sq cm 10 9 9 or part thereof Pain Scale: 0-10 Numeric Is Patient Pain Free? Yes Yes Yes - Nurse 3 - General Ulcer D/C NN Start: 11/11/23 10:34 Freq: Status: Active Protocol: Activity Type Activity Date Activity User E-sign Co-sign Detail Recorded Client Recorded Date Recorded By Document 11/18/23 10:30 KW Desktop 11/18/23 10:31 KW Document 11/25/23 10:11 KW Desktop 11/25/23 10:13 KW 11/18/23 11/25/23 10:30 10:11 Wound Care Center Nurse 3 #18 Left medial LE cluster -Primary Dressing Applied Aquacel Extra, Aquacel Extra, Optilok 6.5x10 Optilok 8x12 -Primary Dressing Covered/Secured with Dry Gauze & Dry Gauze & Roll Gauze, Roll Gauze, Secured with Secured with Tape Tape -Aquacel Extra 1 2 -Optilok 6.5x10 1 -Optilok 8x12 1 Left -Compression Wrap Kishore Wrap -Tubular Bandage Single Layer -Size of Tubigrip Used Size E -Size E ($) 1 Pain Scale: 0-10 Numeric Is Patient Pain Free? Yes Yes WC - Visit Discharge Discharge Condition Stable Stable Ambulatory Status Ambulatory, Ambulatory, Walker Walker Transportation Private Auto Private Auto Medication Reconcilliation completed & No No provided to patient/care provider Clinical Summary of Care Provided Yes Yes Assessment/Plan Assessment/Plan (1) Lymphedema: CODE(S): I89.0 - Lymphedema, not elsewhere classified (2) Hypertension: CODE(S): I10 - Essential (primary) hypertension QUALIFIERS: Hypertension type: primary hypertension Qualified Code(s): I10 - Essential (primary) hypertension (3) Hyperlipidemia: CODE(S): E78.5 - Hyperlipidemia, unspecified QUALIFIERS: Hyperlipidemia type: mixed hyperlipidemia Qualified Code(s): E78.2 - Mixed hyperlipidemia (4) History of DVT (deep vein thrombosis): CODE(S): Z86.718 - Personal history of other venous thrombosis and embolism (5) Venous insufficiency (chronic) (peripheral): CODE(S): I87.2 - Venous insufficiency (chronic) (peripheral) (6) Venous ulcer of left lower extremity with varicose veins: CODE(S): I83.029 - Varicose veins of left lower extremity with ulcer of unspecified site (7) Edema: CODE(S): R60.9 - Edema, unspecified QUALIFIERS: Edema type: unspecified Qualified Code(s): R60.9 - Edema, unspecified PLAN: Plan Evaluation and debridement of left medial LE ulcer performed today in clinic as annotated above. At home wound-care instructions: Will dress his ulcers with Aquacel Extra dailyand cover with super absorber and gauze. If his ulcers are dry then would decrease frequency of changes to every other day. Continue compression with D tubigrips b/l. Due to the delayed progress in wound healing of his venous ulcers, we discussed applying for advanced wound healing product for healing his ulcer. Due to the size of his ulcer, Theraskin application approval is being requested from his insurance as it is medically necessary for salvaging his limb and healing his ulcer. He underwent 2 applications of Theraskin to this ulcer. Since applicationof Theraskin he has had much improvement in epitheliazation of his ulcer even though the overall size is not significantly changed there is progress. Off-loading: The patient was instructed to avoid pressure and friction on the affected areas. Reposition every 2 hours at minimum. Avoid prolonged standing and/or dangling of legs. When seated, feet should be elevated at chest level. Frequent ambulation is encouraged. Encouraged lymphedema pump use. Diet: Patient encouraged to increase protein intake while taking caution to avoid high carbohydrate and/or sugar intake. Labs/cultures/imaging: Wound culture showed 1+ Pseudomonas that is sensitive to Levofloxacin and completed treatment on 08/16/23. Follow-up: Return in 1 week for wound care follow up and have secondary dressingchanged by home health Tuesday and Tuesday. Return sooner or report to the emergency room should symptoms worsen, or new symptoms arise. Note: [employer] speech recognition hair tinter software was used to create portions of this document. Sound-alike and misspelled words, as well as other hair tinter errors may be contained in the documentation. 11/25/23 1036 <Electronically signed by Patricia Garcia DO> Cosigner Signature (if applicable): CC: ~ Signed [facility] Work Phone: [phone] Progress note Author Patricia Garcia [facility] November 18, 2023 12:56pm Note Date/Time November 18, 2023 1 2:56pm [facility] [address] [place] [address] [place] [address] Progress Note - Wound Care 11/18/23 1254 MR#: [id number] Acct: [id number] Name: ESTEBAN URBINA Rep #:[id number] : 1955 68 From: Patricia Garcia DO PCP: Dr. Patricia Garcia, DO Status:REG RCR Location: History of Present Illness Date of Service: 11/18/23 Chief Complaint: venous ulcers of left lower extremity History of Wound: Mauricio is a 68 yo gentleman who is here today for evaluation of ulcers to to his bilateral lower legs. [facility]. The left LE ulcer started after he developed increased swelling and blisters of left leg in October and the right leg started sometime at the end of October. He was seen at PCP's office a culture was taken and it was resistant to several antibiotics. He was treated initially with Levaquin but had myalgias and then was treated with doxycycline which he finished 2 days ago. He denies improvementand is having swelling to his left calf and thigh. He has been having swelling to both lower extremities for many years and it has worsened over the last few months. He has not been compliant with compression. He has had increased pain especially in the left leg. He has clear yellow drainage and redness without odor or warmth. He is anti-coagulated on coumadin. He has been washing with Dial soap and witch ifrah. He had been using Collagen at times and using Calcium Alginate and covering with ABD pads during October. He was treated with 3M compression and Aquacel Ag. He was referred to the wound center for ongoing treatment. His ulcers have moderate to heavy drainage. He was recently hospitalized for cellulitis and edema for the last 10 days. He was in the hospital from 11/30/22 until 12/09/22 for treatment of cellulitis and edema. He underwent treatment with Vancomycin and IV lasix and compression. Discharged on 12/09/22. He returned to his assisted living apartment on Tuesday12/21/22. Subjective Subjective Mauricio is a 68-year-old male with longstanding history of chronic venous ulcerationto the left lower extremity. He has been using Aquacel Extra and tolerating treatment well. There has been improvement in his ulcer overall. He reports significantly decreased drainage. He continues to use super absorber for heavy drainage and size D Tubigrips for compression. 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 He continues to use his lymphedema pumps but continues to have pain with use of these pumps. Objective Data Objective Data Vital Signs: Vital Signs Temp Pulse Resp BP O2 Del Method 96.9 F L 65 18 121/64 H Room Air 11/18/23 09:39 11/18/23 09:39 11/18/23 09:39 11/18/23 09:39 11/18/23 09:39 Oxygen Delivery Method Room Air Physical Exam Const alert, oriented x3 and no apparent distress General Appearance: cooperative and comfortable HEENT normocephalic and head/scalp atraumatic Lymph Lymphatic: lymphedema moderate Resp normal respiratory effort Effort and Inspection: able to speak in complete sentences Cardio regular rate and regular rhythm Extremity General Extremity: edema bilateral lower extremity Details: severe Skin Wounds: wounds noted Wound Narrative: as in clinical panel Psych mental status grossly normal, thought process normal, cooperative and affect normal Debridement Note Debridement Note Wound debrided: left medial LE ulcer Laterality: Left Type of Debridement: Excisional debridement Anesthesia Used: 4% Lidocaine Solution and Cetacaine Depth: Down to and including healthy tissue and in the subcutaneous layer Percentage of wound debrided: 100 Instrument Used: 7mm curette Tissue Removed: Yellow slough, devitalized tissue Severity: Fat Layer Exposed Amount of bleeding with debridement: Mild Bleeding Controlled with: Compression and gauze Patient tolerated procedure: Patient tolerated procedure well Post-Debridement Measurements and Additional Note: Post-Debridement Measurements/Treatment - Nurse 1 - General Ulcer Assessment Start: 11/11/23 10:34 Freq: Status: Active Protocol: [email or web address] Activity Type Activity Date Activity User E-sign Co-sign Detail Recorded Client Recorded Date Recorded By Document 11/11/23 10:34 RB Desktop 11/11/23 10:36 RB Document 11/18/23 09:39 KW Desktop 11/18/23 10:00 KW 11/11/23 11/18/23 10:34 09:39 - Today's Visit Information Type of service Follow-up Visit Follow-up Visit (Physician/APPLICATIONS SPECIALIST (Physician/APPLICATIONS SPECIALIST ) ) Arrival Mode Ambulatory Ambulatory, Walker Transfer Assistance None Patient Identification Verified (Name & Yes Yes ) Patient Requires Transmission-Based No Precautions Vital Signs Temperature (97.8 F-99.1 F) 96 F L 96.9 F L Temperature Source Temporal Temporal Pulse Rate (60-100) 65 65 Pulse Location Monitor Monitor Respiratory Rate (12-18) 18 18 Respiratory rate source Observation Observation Oxygen Delivery Method Room Air Blood Pressure (90/60-120/80) 113/67 121/64 H Blood Pressure Mean (mm Hg) 82 83 Source Monitor Monitor Position Semi-Fowlers Semi-Fowlers Blood Pressure Location Left Arm Right Forearm History Since Last Visit- (Skip if this is Patient's initial visit) Have you changed medications since your No No last visit? Any new allergies or adverse reactions No No Had a fall/change in ADL's that may No No increase risk of falls Signs or symptoms of abuse and/or No No neglect since last visit Have you been in the hospital since your No No last visit? Has dressing in place as prescribed Yes Yes Has compression in place as prescribed Yes Yes Has offloadiing in place as prescribed No No Experienced any changes in pain level or No No management Left Footwear Regular Shoe Right Footwear Regular Shoe Pain Scale: 0-10 Numeric Is Patient Pain Free? Yes Yes WC - Nurse 1 - General Ulcer Measurement Start: 11/11/23 10:34 Freq: Status: Active Protocol: Activity Type Activity Date Activity User E-sign Co-sign Detail Recorded Client Recorded Date Recorded By Document 11/11/23 10:34 RB Desktop 11/11/23 10:36 RB Document 11/18/23 09:39 KW Desktop 11/18/23 10:00 KW 11/11/23 11/18/23 10:34 09:39 Wound Center Nurse 1 #18 Left medial LE cluster -Combined with other wound No -Current Size (cm) - Length 13 10 -Current Size (cm) - Width 15 18 -Current Size (cm) - Depth 0.1 0.1 -Total Square Cm 195 180 -Tunneling No -Undermining/Tunneling No -Circular Undermining No -Exudate Amt Medium Large -Exudate Type Serosanguineous Serosanguineous -Wound Margin Distinct, Distinct, Outline Outline Attached Attached -Granulation Amt Medium (34-66%) Large (67-100%) -Granulation Quality Lingle Red -Slough/Fibrin Yes -Necrosis Amt Large (67-100%) Small (1-33%) -Necrotic Tissue Type Adherent Slough Adherent Slough -Structure Exposed N/A -Texture (Marie-wound Skin Appearance) Assessed Assessed -Moisture (Marie-wound Skin Appearance) Assessed Assessed,Dry/ Scaly -Color (Marie-wound Skin Appearance) Assessed, Assessed, Hemosiderin Erythema Staining -Temperature (Marie-wound Skin No Abnormality No Abnormality Appearance) (Pt Warm) (Pt Warm) -Tenderness on Palpation (Marie-wound No Skin Appearance) -Ulcer Cleansing Wound Cleanser Soap and Water -Foul Odor after Cleansing No -Anesthetic Used 4% Lidocaine 4% Lidocaine Solution Solution Lower Limb Edema Present Yes Left Calf (cm) 40.2 38 Left Ankle (cm) 28.5 30 WC - Nurse 2 - General Ulcer CM Notes Start: 11/11/23 10:34 Freq: Status: Active Protocol: Activity Type Activity Date Activity User E-sign Co-sign Detail Recorded Client Recorded Date Recorded By Document 11/11/23 10:40 GM Desktop 11/11/23 11:09 GM Document 11/18/23 10:03 [id number] 11/18/23 10:24 11/11/23 11/18/23 10:40 10:03 Wound Center Nurse 2 #18 Left medial LE cluster -Time 10:56 10:04 -Correct Patient Yes Yes -Correct Side, Site, Position Yes Yes -Correct Procedure Yes Yes -Procedure Performed Yes Yes -Type of Procedure Debridement Debridement -Clinical Debridement Subcutaneous Subcutaneous -Tissue Removed Subcutaneous Subcutaneous -Post Debridement (cm) - Length 11.5 11.2 -Post Debridement (cm) - Width 17.5 17.5 -Post Debridement (cm) - Depth 0.1 0.1 -Total Square (Post) (cm) 201.25 196.00 -Area of Debridement (cm) - Length 11.5 11.2 -Area of Debridement (cm) - Width 17.5 17.5 -Total Square (Area) (cm) 201.25 196.00 -Tunneling No No -Undermining/Tunneling No No -Circular Undermining No No -Wound/Ulcer Outcome Not Healed Not Healed -Ulcer Cleansing Rinsed/ Rinsed/ Irrigated with Irrigated with Saline Saline -Foul Odor after Cleansing No No -Bioengineered Tissue No No -Bleeding Controlled with Pressure Pressure -Treatment Response Procedure Procedure Tolerated Well Tolerated Well -Debridement - Subq, 1st 20sq cm Yes Yes -Debridement, SubQ, ea addt'l 20sq cm 10 9 or part thereof Pain Scale: 0-10 Numeric Is Patient Pain Free? Yes Yes - Nurse 3 - General Ulcer D/C NN Start: 11/11/23 10:34 Freq: Status: Active Protocol: Activity Type Activity Date Activity User E-sign Co-sign Detail Recorded Client Recorded Date Recorded By Document 11/18/23 10:30 KW Desktop 11/18/23 10:31 KW 11/18/23 10:30 Wound Care Center Nurse 3 #18 Left medial LE cluster -Primary Dressing Applied Aquacel Extra, Optilok 6.5x10 -Primary Dressing Covered/Secured with Dry Gauze & Roll Gauze, Secured with Tape -Aquacel Extra 1 -Optilok 6.5x10 1 Left -Tubular Bandage Single Layer -Size of Tubigrip Used Size E -Size E ($) 1 Pain Scale: 0-10 Numeric Is Patient Pain Free? Yes - Visit Discharge Discharge Condition Stable Ambulatory Status Ambulatory, Walker Transportation Private Auto Medication Reconcilliation completed & No provided to patient/care provider Clinical Summary of Care Provided Yes Assessment/Plan Assessment/Plan (1) Lymphedema: CODE(S): I89.0 - Lymphedema, not elsewhere classified (2) Hypertension: CODE(S): I10 - Essential (primary) hypertension QUALIFIERS: Hypertension type: primary hypertension Qualified Code(s): I10 - Essential (primary) hypertension (3) Hyperlipidemia: CODE(S): E78.5 - Hyperlipidemia, unspecified QUALIFIERS: Hyperlipidemia type: mixed hyperlipidemia Qualified Code(s): E78.2 - Mixed hyperlipidemia (4) History of DVT (deep vein thrombosis): CODE(S): Z86.718 - Personal history of other venous thrombosis and embolism (5) Venous insufficiency (chronic) (peripheral): CODE(S): I87.2 - Venous insufficiency (chronic) (peripheral) (6) Venous ulcer of left lower extremity with varicose veins: CODE(S): I83.029 - Varicose veins of left lower extremity with ulcer of unspecified site (7) Edema: CODE(S): R60.9 - Edema, unspecified QUALIFIERS: Edema type: unspecified Qualified Code(s): R60.9 - Edema, unspecified PLAN: Plan Evaluation and debridement of left medial LE ulcer performed today in clinic as annotated above. At home wound-care instructions: Will dress his ulcers with Aquacel Extra dailyand cover with super absorber and gauze. If his ulcers are dry then would decrease frequency of changes to every other day. Continue compression with D tubigrips b/l. Due to the delayed progress in wound healing of his venous ulcers, we discussed applying for advanced wound healing product for healing his ulcer. Due to the size of his ulcer, Theraskin application approval is being requested from his insurance as it is medically necessary for salvaging his limb and healing his ulcer. He underwent 2 applications of Theraskin to this ulcer. Off-loading: The patient was instructed to avoid pressure and friction on the affected areas. Reposition every 2 hours at minimum. Avoid prolonged standing and/or dangling of legs. When seated, feet should be elevated at chest level. Frequent ambulation is encouraged. Encouraged lymphedema pump use. Diet: Patient encouraged to increase protein intake while taking caution to avoid high carbohydrate and/or sugar intake. Labs/cultures/imaging: Wound culture showed 1+ Pseudomonas that is sensitive to Levofloxacin and completed treatment on 08/16/23. Follow-up: Return in 1 week for wound care follow up and have secondary dressingchanged by home health Tuesday and Tuesday. Return sooner or report to the emergency room should symptoms worsen, or new symptoms arise. Note: [employer] speech recognition hair tinter software was used to create portions of this document. Sound-alike and misspelled words, as well as other hair tinter errors may be contained in the documentation. 11/18/23 1256 <Electronically signed by Patricia Garcia DO> Cosigner Signature (if applicable): CC: ~ Signed [facility] Work Phone: [phone]) 224-309802-02-2024 Progress note Author Patricia Garcia [facility] November 11, 2023 2:51pm Note Date/Time November 11, 2023 2 :51pm [facility] [address] [place] [address] Progress Note - Wound Care 11/11/23 1432 MR#: [id number] Acct: [id number] Name: ESTEBAN URBINA Rep #:[id number] : 1955 68 From: Patricia Garcia DO PCP: Dr. Patricia Garcia, DO Status:REG RCR Location: History of Present Illness Date of Service: 11/11/23 Chief Complaint: venous ulcers of left lower extremity History of Wound: Mauricio is a 68 yo gentleman who is here today for evaluation of ulcers to to his bilateral lower legs. [facility]. The left LE ulcer started after he developed increased swelling and blisters of left leg in October and the right leg started sometime at the end of October. He was seen at PCP's office a culture was taken and it was resistant to several antibiotics. He was treated initially with Levaquin but had myalgias and then was treated with doxycycline which he finished 2 days ago. He denies improvementand is having swelling to his left calf and thigh. He has been having swelling to both lower extremities for many years and it has worsened over the last few months. He has not been compliant with compression. He has had increased pain especially in the left leg. He has clear yellow drainage and redness without odor or warmth. He is anti-coagulated on coumadin. He has been washing with Dial soap and witch ifrah. He had been using Collagen at times and using Calcium Alginate and covering with ABD pads during October. He was treated with 3M compression and Aquacel Ag. He was referred to the wound center for ongoing treatment. His ulcers have moderate to heavy drainage. He was recently hospitalized for cellulitis and edema for the last 10 days. He was in the hospital from 11/30/22 until 12/09/22 for treatment of cellulitis and edema. He underwent treatment with Vancomycin and IV lasix and compression. Discharged on 12/09/22. He returned to his assisted living apartment on Tuesday12/21/22. Subjective Subjective Mauricio is a 68-year-old male with longstanding history of chronic venous ulcerationto the left lower extremity. He has been using Aquacel Extra and tolerating treatment well. Theraskin remained intact and steri-strips and wound veil were also intact. He reports significantly decreased drainage. He continues to use super absorber for heavy drainage and size D Tubigrips for compression. 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 He continues to use his lymphedema pumps but continues to have painwith use of these pumps. Objective Data Objective Data Vital Signs: Vital Signs Temp Pulse Resp BP 96 F L 65 18 113/67 11/11/23 10:34 11/11/23 10:34 11/11/23 10:34 11/11/23 10:34 Physical Exam Const alert, oriented x3 and no apparent distress General Appearance: cooperative and comfortable HEENT normocephalic and head/scalp atraumatic Lymph Lymphatic: lymphedema moderate Resp normal respiratory effort Effort and Inspection: able to speak in complete sentences Cardio regular rate and regular rhythm Extremity General Extremity: edema bilateral lower extremity Details: severe Skin Wounds: wounds noted Wound Narrative: as in clinical panel Psych mental status grossly normal, thought process normal, cooperative and affect normal Debridement Note Debridement Note Wound debrided: left medial LE ulcer Laterality: Left Type of Debridement: Excisional debridement Anesthesia Used: 4% Lidocaine Solution and Cetacaine Depth: Down to and including healthy tissue and in the subcutaneous layer Percentage of wound debrided: 100 Instrument Used: 7mm curette Tissue Removed: Yellow slough, devitalized tissue Severity: Fat Layer Exposed Amount of bleeding with debridement: Mild Bleeding Controlled with: Compression and gauze Patient tolerated procedure: Patient tolerated procedure well Post-Debridement Measurements and Additional Note: Post-Debridement Measurements/Treatment - Nurse 1 - General Ulcer Assessment Start: 11/11/23 10:34 Freq: Status: Active Protocol: [email or web address].[email or web address] Activity Type Activity Date Activity User E-sign Co-sign Detail Recorded Client Recorded Date Recorded By Document 11/11/23 10:34 Desktop 11/11/23 10:36 11/11/23 10:34 - Today's Visit Information Type of service Follow-up Visit (Physician/APPLICATIONS SPECIALIST ) Arrival Mode Ambulatory Transfer Assistance None Patient Identification Verified (Name & Yes ) Patient Requires Transmission-Based No Precautions Vital Signs Temperature (97.8 F-99.1 F) 96 F L Temperature Source Temporal Pulse Rate (60-100) 65 Pulse Location Monitor Respiratory Rate (12-18) 18 Respiratory rate source Observation Blood Pressure (90/60-120/80) 113/67 Blood Pressure Mean (mm Hg) 82 Source Monitor Position Semi-Fowlers Blood Pressure Location Left Arm History Since Last Visit- (Skip if this is Patient's initial visit) Have you changed medications since your No last visit? Any new allergies or adverse reactions No Had a fall/change in ADL's that may No increase risk of falls Signs or symptoms of abuse and/or No neglect since last visit Have you been in the hospital since your No last visit? Has dressing in place as prescribed Yes Has compression in place as prescribed Yes Has offloadiing in place as prescribed No Experienced any changes in pain level or No management Pain Scale: 0-10 Numeric Is Patient Pain Free? Yes - Nurse 1 - General Ulcer Measurement Start: 11/11/23 10:34 Freq: Status: Active Protocol: Activity Type Activity Date Activity User E-sign Co-sign Detail Recorded Client Recorded Date Recorded By Document 11/11/23 10:34 RB Desktop 11/11/23 10:36 RB 11/11/23 10:34 Wound Center Nurse 1 #18 Left medial LE cluster -Combined with other wound No -Current Size (cm) - Length 13 -Current Size (cm) - Width 15 -Current Size (cm) - Depth 0.1 -Total Square Cm 195 -Tunneling No -Undermining/Tunneling No -Circular Undermining No -Exudate Amt Medium -Exudate Type Serosanguineous -Wound Margin Distinct, Outline Attached -Granulation Amt Medium (34-66%) -Granulation Quality Lingle -Slough/Fibrin Yes -Necrosis Amt Large (67-100%) -Necrotic Tissue Type Adherent Slough -Structure Exposed N/A -Texture (Marie-wound Skin Appearance) Assessed -Moisture (Marie-wound Skin Appearance) Assessed -Color (Marie-wound Skin Appearance) Assessed, Hemosiderin Staining -Temperature (Marie-wound Skin No Abnormality Appearance) (Pt Warm) -Tenderness on Palpation (Marie-wound No Skin Appearance) -Ulcer Cleansing Wound Cleanser -Foul Odor after Cleansing No -Anesthetic Used 4% Lidocaine Solution Lower Limb Edema Present Yes Left Calf (cm) 40.2 Left Ankle (cm) 28.5 - Nurse 2 - General Ulcer CM Notes Start: 11/11/23 10:34 Freq: Status: Active Protocol: Activity Type Activity Date Activity User E-sign Co-sign Detail Recorded Client Recorded Date Recorded By Document 11/11/23 10:40 Desktop 11/11/23 11:09 11/11/23 10:40 Wound Center Nurse 2 #18 Left medial LE cluster -Time 10:56 -Correct Patient Yes -Correct Side, Site, Position Yes -Correct Procedure Yes -Procedure Performed Yes -Type of Procedure Debridement -Clinical Debridement Subcutaneous -Tissue Removed Subcutaneous -Post Debridement (cm) - Length 11.5 -Post Debridement (cm) - Width 17.5 -Post Debridement (cm) - Depth 0.1 -Total Square (Post) (cm) 201.25 -Area of Debridement (cm) - Length 11.5 -Area of Debridement (cm) - Width 17.5 -Total Square (Area) (cm) 201.25 -Tunneling No -Undermining/Tunneling No -Circular Undermining No -Wound/Ulcer Outcome Not Healed -Ulcer Cleansing Rinsed/ Irrigated with Saline -Foul Odor after Cleansing No -Bioengineered Tissue No -Bleeding Controlled with Pressure -Treatment Response Procedure Tolerated Well -Debridement - Subq, 1st 20sq cm Yes -Debridement, SubQ, ea addt'l 20sq cm 10 or part thereof Pain Scale: 0-10 Numeric Is Patient Pain Free? Yes Assessment/Plan Assessment/Plan (1) Lymphedema: CODE(S): I89.0 - Lymphedema, not elsewhere classified (2) Hypertension: CODE(S): I10 - Essential (primary) hypertension QUALIFIERS: Hypertension type: primary hypertension Qualified Code(s): I10 - Essential (primary) hypertension (3) Hyperlipidemia: CODE(S): E78.5 - Hyperlipidemia, unspecified QUALIFIERS: Hyperlipidemia type: mixed hyperlipidemia Qualified Code(s): E78.2 - Mixed hyperlipidemia (4) History of DVT (deep vein thrombosis): CODE(S): Z86.718 - Personal history of other venous thrombosis and embolism (5) Venous insufficiency (chronic) (peripheral): CODE(S): I87.2 - Venous insufficiency (chronic) (peripheral) (6) Venous ulcer of left lower extremity with varicose veins: CODE(S): I83.029 - Varicose veins of left lower extremity with ulcer of unspecified site (7) Edema: CODE(S): R60.9 - Edema, unspecified QUALIFIERS: Edema type: unspecified Qualified Code(s): R60.9 - Edema, unspecified PLAN: Plan Evaluation and debridement of left medial LE ulcer performed today in clinic as annotated above. At home wound-care instructions: Theraskin #2 application was tolerated well butunfortunately although there was significant improvement in the wound bed there was not enough change in overall size to perform another application of Theraskin. I do believe that he has benefitted from these applications and wouldbenefit from continued application of the Theraskin as only 90% of his ulcer wasable to be treated with the Theraskin. Hopefully over the course of the next week there will be continued improvement with residual growth factors present from Theraskin application. Will dress his ulcers with Aquacel Extra daily and cover with super absorber and gauze. If his ulcers are dry then would decrease frequency of changes to every other day. Continue compression with D tubigrips b/l. Due to the delayed progress in wound healing of his venous ulcers, we discussed applying for advanced wound healing product for healing his ulcer. Due to the size of his ulcer, Theraskin application approval is being requested from his insurance as it is medically necessary for salvaging his limb and healing his ulcer. He underwent 2 applications of Theraskin to this ulcer. Off-loading: The patient was instructed to avoid pressure and friction on the affected areas. Reposition every 2 hours at minimum. Avoid prolonged standing and/or dangling of legs. When seated, feet should be elevated at chest level. Frequent ambulation is encouraged. Encouraged lymphedema pump use. Diet: Patient encouraged to increase protein intake while taking caution to avoid high carbohydrate and/or sugar intake. Labs/cultures/imaging: Wound culture showed 1+ Pseudomonas that is sensitive to Levofloxacin and completed treatment on 08/16/23. Follow-up: Return in 1 week for wound care follow up and have secondary dressingchanged by home health Tuesday and Tuesday. Return sooner or report to the emergency room should symptoms worsen, or new symptoms arise. Note: [employer] speech recognition hair tinter software was used to create portions of this document. Sound-alike and misspelled words, as well as other hair tinter errors may be contained in the documentation. 11/11/23 1451 <Electronically signed by Patricia Garcia DO> Cosigner Signature (if applicable): CC: ~ Signed [facility] Work Phone: [phone] 817-514801-26-2024 Progress note Author Patricia Garcia [facility] November 04, 2023 12:58pm Note Date/Time November 04, 2023 1 2:58pm [facility] [address] [place] [address] Progress Note - Wound Care 11/04/23 1252 MR#: [id number] Acct: [id number] Name: ESTEBAN URBINA Rep #:[id number] : 1955 68 From: Patricia Garcia DO PCP: Dr. Patricia Garcia, DO Status:REG RCR Location: History of Present Illness Date of Service: 11/04/23 Chief Complaint: venous ulcers of left lower extremity History of Wound: Mauricio is a 68 yo gentleman who is here today for evaluation of ulcers to to his bilateral lower legs. [facility]. The left LE ulcer started after he developed increased swelling and blisters of left leg in October and the right leg started sometime at the end of October. He was seen at PCP's office a culture was taken and it was resistant to several antibiotics. He was treated initially with Levaquin but had myalgias and then was treated with doxycycline which he finished 2 days ago. He denies improvementand is having swelling to his left calf and thigh. He has been having swelling to both lower extremities for many years and it has worsened over the last few months. He has not been compliant with compression. He has had increased pain especially in the left leg. He has clear yellow drainage and redness without odor or warmth. He is anti-coagulated on coumadin. He has been washing with Dial soap and witch ifrah. He had been using Collagen at times and using Calcium Alginate and covering with ABD pads during October. He was treated with 3M compression and Aquacel Ag. He was referred to the wound center for ongoing treatment. His ulcers have moderate to heavy drainage. He was recently hospitalized for cellulitis and edema for the last 10 days. He was in the hospital from 11/30/22 until 12/09/22 for treatment of cellulitis and edema. He underwent treatment with Vancomycin and IV lasix and compression. Discharged on 12/09/22. He returned to his assisted living apartment on Tuesday12/21/22. Subjective Subjective Mauricio is a 68-year-old male with longstanding history of chronic venous ulcerationto the left lower extremity. He has been using Aquacel Extra and tolerating treatment well. Theraskin remained intact and steri-strips and wound veil were also intact. He reports significantly decreased drainage. He continues to use super absorber for heavy drainage and size D Tubigrips for compression. 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 He continues to use his lymphedema pumps but continues to have painwith use of these pumps. Objective Data Objective Data Vital Signs: Vital Signs Temp Pulse Resp BP O2 Del Method 95.6 F L 70 18 135/78 H Room Air 11/04/23 09:19 11/04/23 09:19 11/04/23 09:19 11/04/23 09:19 11/04/23 09:19 Oxygen Delivery Method Room Air Physical Exam Const alert, oriented x3 and no apparent distress General Appearance: cooperative and comfortable HEENT normocephalic and head/scalp atraumatic Lymph Lymphatic: lymphedema moderate Resp normal respiratory effort Effort and Inspection: able to speak in complete sentences Cardio regular rate and regular rhythm Extremity General Extremity: edema bilateral lower extremity Details: severe Skin Wounds: wounds noted Wound Narrative: as in clinical panel Psych mental status grossly normal, thought process normal, cooperative and affect normal Debridement Note Debridement Note Wound debrided: left medial LE ulcer Laterality: Left Amount of bleeding with debridement: Mild Bleeding Controlled with: Compression and gauze Patient tolerated procedure: Patient tolerated procedure well Debridement Free Text: 25 G 1 syringe needle used to penetrate wound veil and theraskin and induce bleeding. Patient tolerated procedure well. Post-Debridement Measurements and Additional Note: Post-Debridement Measurements/Treatment WC - Nurse 1 - General Ulcer Assessment Start: 10/14/23 08:41 Freq: Status: Active Protocol: [email or web address] Activity Type Activity Date Activity User E-sign Co-sign Detail Recorded Client Recorded Date Recorded By Document 10/14/23 08:42 RB Desktop 10/14/23 08:51 RB Document 10/21/23 09:30 KW Desktop 10/21/23 09:36 KW Document 10/28/23 10:43 Desktop 10/28/23 10:54 GM Document 11/04/23 09:19 KW Desktop 11/04/23 09:36 KW 10/14/23 10/21/23 10/28/23 08:42 09:30 10:43 [facility] Today's Visit Information Type of service Follow-up Visit Follow-up Visit Follow-up Visit (Physician/APPLICATIONS SPECIALIST (Physician/APPLICATIONS SPECIALIST (Physician/APPLICATIONS SPECIALIST ) ) ) Arrival Mode Ambulatory Ambulatory, Ambulatory, Walker Walker Transfer Assistance None None Patient Identification Verified (Name & Yes Yes Yes ) Patient Requires Transmission-Based No No Precautions Vital Signs Temperature (97.8 F-99.1 F) 96.3 F L 95.4 F L 97.6 F L Temperature Source Temporal Temporal Temporal Pulse Rate (60-100) 72 66 69 Pulse Location Monitor Monitor Monitor Respiratory Rate (12-18) 18 18 18 Respiratory rate source Observation Observation Observation Oxygen Delivery Method Room Air Room Air Blood Pressure (90/60-120/80) 124/76 H 138/83 H 156/86 H Blood Pressure Mean (mm Hg) 92 101 109 Source Monitor Monitor Monitor Position Semi-Fowlers Semi-Fowlers Sitting Blood Pressure Location Left Arm Left Arm Right Arm History Since Last Visit- (Skip if this is Patient's initial visit) Have you changed medications since your No No No last visit? Any new allergies or adverse reactions No No No Had a fall/change in ADL's that may No No No increase risk of falls Signs or symptoms of abuse and/or No No No neglect since last visit Have you been in the hospital since your No No No last visit? Has dressing in place as prescribed Yes Yes Yes Has compression in place as prescribed Yes Yes Yes Has offloadiing in place as prescribed No No No Experienced any changes in pain level or No No No management Left Footwear Regular Shoe Regular Shoe Right Footwear Regular Shoe Regular Shoe Pain Scale: 0-10 Numeric Is Patient Pain Free? No Yes Yes LLE and left arm -Description Sharp -Intensity 6 -Duration (hours) Chronic -Pain Behavior Withdrawal from Touch -Pain Aggravating Factors ADL's,Walking -Alleviating Factors/Interventions Medication -Effectiveness of Alleviating Factor/ Minimally Intervention effective 11/04/23 09:19 [facility] Today's Visit Information Type of service Follow-up Visit (Physician/APPLICATIONS SPECIALIST ) Arrival Mode Ambulatory, Walker Transfer Assistance Patient Identification Verified (Name & Yes ) Patient Requires Transmission-Based Precautions Vital Signs Temperature (97.8 F-99.1 F) 95.6 F L Temperature Source Temporal Pulse Rate (60-100) 70 Pulse Location Monitor Respiratory Rate (12-18) 18 Respiratory rate source Observation Oxygen Delivery Method Room Air Blood Pressure (90/60-120/80) 135/78 H Blood Pressure Mean (mm Hg) 97 Source Monitor Position Semi-Fowlers Blood Pressure Location Right Forearm History Since Last Visit- (Skip if this is Patient's initial visit) Have you changed medications since your No last visit? Any new allergies or adverse reactions No Had a fall/change in ADL's that may No increase risk of falls Signs or symptoms of abuse and/or No neglect since last visit Have you been in the hospital since your No last visit? Has dressing in place as prescribed Yes Has compression in place as prescribed Yes Has offloadiing in place as prescribed N/A Experienced any changes in pain level or No management Left Footwear Regular Shoe Right Footwear Regular Shoe Pain Scale: 0-10 Numeric Is Patient Pain Free? Yes LLE and left arm -Description -Intensity -Duration (hours) -Pain Behavior -Pain Aggravating Factors -Alleviating Factors/Interventions -Effectiveness of Alleviating Factor/ Intervention WC - Nurse 1 - General Ulcer Measurement Start: 10/14/23 08:41 Freq: Status: Active Protocol: Activity Type Activity Date Activity User E-sign Co-sign Detail Recorded Client Recorded Date Recorded By Document 10/14/23 08:42 RB [employer] 10/14/23 08:51 RB Document 10/21/23 09:30 KW Desktop 10/21/23 09:36 KW Document 10/28/23 10:43 Desktop 10/28/23 10:54 Document 11/04/23 09:19 KW Desktop 11/04/23 09:36 KW 10/14/23 10/21/23 10/28/23 08:42 09:30 10:43 Wound Center Nurse 1 #18 Left medial LE cluster -Combined with other wound No -Current Size (cm) - Length 8 0.1 -Current Size (cm) - Width 21.5 0.1 -Current Size (cm) - Depth 0.2 0.1 -Total Square Cm 172.0 0.01 -Epithelialization Small 1-33% -Tunneling No No -Undermining/Tunneling No No -Circular Undermining No No -Exudate Amt Large Large -Exudate Type Serosanguineous Yellow/Green -Wound Margin Distinct, Distinct, Outline Outline Attached Attached -Granulation Amt Medium (34-66%) Large (67-100%) -Granulation Quality Lingle,Red Red -Slough/Fibrin Yes -Necrosis Amt Medium (34-66%) Medium (34-66%) -Necrotic Tissue Type Adherent Slough Adherent Slough -Structure Exposed N/A N/A -Texture (Marie-wound Skin Appearance) Assessed Assessed -Moisture (Marie-wound Skin Appearance) Assessed Assessed -Color (Marie-wound Skin Appearance) Hemosiderin Assessed Staining -Temperature (Marie-wound Skin No Abnormality Appearance) (Pt Warm) -Tenderness on Palpation (Marie-wound No Skin Appearance) -Ulcer Cleansing Wound Cleanser Soap and Water -Foul Odor after Cleansing No -Anesthetic Used 4% Lidocaine Solution -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) Wound not messured d/t theraskin intact. Lower Limb Edema Present Yes Left Calf (cm) 41.5 40.5 40.3 Left Ankle (cm) 29.5 29 29.2 11/04/23 09:19 Wound Center Nurse 1 #18 Left medial LE cluster -Combined with other wound -Current Size (cm) - Length -Current Size (cm) - Width -Current Size (cm) - Depth -Total Square Cm -Epithelialization -Tunneling -Undermining/Tunneling -Circular Undermining -Exudate Amt -Exudate Type -Wound Margin -Granulation Amt -Granulation Quality -Slough/Fibrin -Necrosis Amt -Necrotic Tissue Type -Structure Exposed -Texture (Marie-wound Skin Appearance) -Moisture (Marie-wound Skin Appearance) -Color (Marie-wound Skin Appearance) -Temperature (Marie-wound Skin Appearance) -Tenderness on Palpation (Marie-wound Skin Appearance) -Ulcer Cleansing -Foul Odor after Cleansing -Anesthetic Used -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) Cleansed around wound with soap and water. Theraskin left intact. Lower Limb Edema Present Left Calf (cm) 39 Left Ankle (cm) 28.5 WC - Nurse 2 - General Ulcer CM Notes Start: 10/14/23 08:41 Freq: Status: Active Protocol: Activity Type Activity Date Activity User E-sign Co-sign Detail Recorded Client Recorded Date Recorded By Document 10/14/23 08:49 GM [id number] 10/14/23 09:59 GM Edit Result 01/05/24 08:49 GM (1) [id number] 10/28/23 12:42 GM Document 10/21/23 09:50 GM Desktop 10/21/23 09:58 GM Document 10/28/23 10:54 GM [id number] 10/28/23 12:42 GM Document 11/04/23 10:00 GM Desktop 11/04/23 10:01 GM (1) #18 Left medial LE cluster - Post Debridement (cm) - Length => 11 - Post Debridement (cm) - Width => 19.5 - Post Debridement (cm) - Depth => 0.1 - Total Square (Post) (cm) => 214.5 - Area of Debridement (cm) - Length => 11 - Area of Debridement (cm) - Width => 19.5 - Total Square (Area) (cm) => 214.5 10/14/23 10/21/23 10/28/23 08:49 09:50 10:54 Wound Center Nurse 2 #18 Left medial LE cluster -Time 09:04 09:50 10:56 -Correct Patient Yes Yes Yes -Correct Side, Site, Position Yes Yes Yes -Correct Procedure Yes Yes Yes -Procedure Performed Yes No Yes -Type of Procedure Debridement Debridement -Clinical Debridement Subcutaneous Subcutaneous -Tissue Removed Subcutaneous Subcutaneous -Post Debridement (cm) - Length 11 9.5 -Post Debridement (cm) - Width 19.5 17.1 -Post Debridement (cm) - Depth 0.1 0.1 -Total Square (Post) (cm) 214.5 162.45 -Area of Debridement (cm) - Length 11 -Area of Debridement (cm) - Width 19.5 -Total Square (Area) (cm) 214.5 -Tunneling No No No -Undermining/Tunneling No No No -Circular Undermining No No No -Wound/Ulcer Outcome Not Healed Not Healed Not Healed -Ulcer Cleansing Rinsed/ Not Cleansed Rinsed/ Irrigated with Irrigated with Saline Saline -Foul Odor after Cleansing No No -Bioengineered Tissue Yes Yes -Type of Bioengineered Tissue Theraskin -Type of Bioengineered Tissue Theraskin -Expiration Date 01/17/28 03/30/27 -Product Lot Number [id number] -Percent Used 100 100 -Lot number of Saline Used [id number] -Bleeding Controlled with Pressure Pressure -Treatment Response Procedure Procedure Tolerated Well Tolerated Well -Assistive Device(s) Walker -Debridement - Subq, 1st 20sq cm No No -Apply Skin Sub - 1st 100 sq cm - Legs 1 -Apply Skin Sub - each addt'l 100 sq 1 cm - Legs -Theraskin (per sq cm) 116 -Theraskin - 103TSXL (116 SQ CM) (per 116 sq cm) Pain Scale: 0-10 Numeric Is Patient Pain Free? Yes Yes Yes 11/04/23 10:00 Wound Center Nurse 2 #18 Left medial LE cluster -Time 10:00 -Correct Patient Yes -Correct Side, Site, Position Yes -Correct Procedure -Procedure Performed -Type of Procedure -Clinical Debridement -Tissue Removed -Post Debridement (cm) - Length -Post Debridement (cm) - Width -Post Debridement (cm) - Depth -Total Square (Post) (cm) -Area of Debridement (cm) - Length -Area of Debridement (cm) - Width -Total Square (Area) (cm) -Tunneling No -Undermining/Tunneling No -Circular Undermining No -Wound/Ulcer Outcome Not Healed -Ulcer Cleansing Not Cleansed -Foul Odor after Cleansing -Bioengineered Tissue -Type of Bioengineered Tissue -Type of Bioengineered Tissue -Expiration Date -Product Lot Number -Percent Used -Lot number of Saline Used -Bleeding Controlled with -Treatment Response -Assistive Device(s) -Debridement - Subq, 1st 20sq cm -Apply Skin Sub - 1st 100 sq cm - Legs -Apply Skin Sub - each addt'l 100 sq cm - Legs -Theraskin (per sq cm) -Theraskin - 103TSXL (116 SQ CM) (per sq cm) Pain Scale: 0-10 Numeric Is Patient Pain Free? Yes - Nurse 3 - General Ulcer D/C NN Start: 10/14/23 08:41 Freq: Status: Active Protocol: Activity Type Activity Date Activity User E-sign Co-sign Detail Recorded Client Recorded Date Recorded By Document 10/14/23 09:46 KW Desktop 10/14/23 09:47 KW Document 10/21/23 10:14 RB Desktop 10/21/23 10:15 RB Document 10/28/23 12:00 [id number] 10/28/23 12:44 GM Document 11/04/23 10:08 RB Desktop 11/04/23 10:10 RB 10/14/23 10/21/23 10/28/23 09:46 10:14 12:00 Wound Care Center Nurse 3 #18 Left medial LE cluster -Ulcer Cleansing Not Cleansed -Foul Odor after Cleansing No -Primary Dressing Applied Optilok 8x12 Aquacel Extra, Aquacel Extra, Optilok 8x12 Optilok 6.5x10 -Other Dressing abd -Primary Dressing Covered/Secured with Dry Gauze & Dry Gauze & Dry Gauze & Roll Gauze, Roll Gauze, Roll Gauze, Secured with Secured with Secured with Tape Tape Tape -Aquacel Extra 2 2 -Optilok 6.5x10 1 -Optilok 8x12 1 1 Right -Lotion applied to leg before No compression wrap -Compression Wrap Kishore Wrap -Tubular Bandage Single Layer Single Layer -Size of Tubigrip Used Size D Size D -Size D ($) 1 1 -Size E ($) Left -Lotion applied to leg before Yes compression wrap -Tubular Bandage Single Layer Single Layer -Size of Tubigrip Used Size D Size D -Size D ($) 1 1 -Size E ($) Treatment Response Procedure Tolerated Well Pain Scale: 0-10 Numeric Is Patient Pain Free? Yes No Yes Teaching: Wound Center *Wound/Skin Impairment -Person Taught Patient -Teaching Method Discussion -Response to teaching Verbalize understanding Dressing Your Wound -Person Taught -Teaching Method -Response to teaching WC - Visit Discharge Discharge Condition Stable Stable Stable Ambulatory Status Ambulatory, Ambulatory, Ambulatory, Walker Walker Walker Transportation Private Auto Private Auto Medication Reconcilliation completed & No No Yes provided to patient/care provider Clinical Summary of Care Provided Yes Yes Yes 11/04/23 10:08 Wound Care Center Nurse 3 #18 Left medial LE cluster -Ulcer Cleansing -Foul Odor after Cleansing -Primary Dressing Applied Aquacel Extra, Optilok 8x12 -Other Dressing -Primary Dressing Covered/Secured with Dry Gauze & Roll Gauze, Secured with Tape -Aquacel Extra 2 -Optilok 6.5x10 -Optilok 8x12 1 Right -Lotion applied to leg before compression wrap -Compression Wrap -Tubular Bandage Single Layer -Size of Tubigrip Used Size E -Size D ($) -Size E ($) 1 Left -Lotion applied to leg before compression wrap -Tubular Bandage Single Layer -Size of Tubigrip Used Size E -Size D ($) -Size E ($) 1 Treatment Response Procedure Tolerated Well Pain Scale: 0-10 Numeric Is Patient Pain Free? Yes Teaching: Wound Center *Wound/Skin Impairment -Person Taught -Teaching Method -Response to teaching Dressing Your Wound -Person Taught Patient -Teaching Method Discussion, Demonstration -Response to teaching Verbalize understanding WC - Visit Discharge Discharge Condition Stable Ambulatory Status Ambulatory, Walker Transportation Private Auto Medication Reconcilliation completed & No provided to patient/care provider Clinical Summary of Care Provided Yes Assessment/Plan Assessment/Plan (1) Lymphedema: CODE(S): I89.0 - Lymphedema, not elsewhere classified (2) Hypertension: CODE(S): I10 - Essential (primary) hypertension QUALIFIERS: Hypertension type: primary hypertension Qualified Code(s): I10 - Essential (primary) hypertension (3) Hyperlipidemia: CODE(S): E78.5 - Hyperlipidemia, unspecified QUALIFIERS: Hyperlipidemia type: mixed hyperlipidemia Qualified Code(s): E78.2 - Mixed hyperlipidemia (4) History of DVT (deep vein thrombosis): CODE(S): Z86.718 - Personal history of other venous thrombosis and embolism (5) Venous insufficiency (chronic) (peripheral): CODE(S): I87.2 - Venous insufficiency (chronic) (peripheral) (6) Venous ulcer of left lower extremity with varicose veins: CODE(S): I83.029 - Varicose veins of left lower extremity with ulcer of unspecified site (7) Edema: CODE(S): R60.9 - Edema, unspecified QUALIFIERS: Edema type: unspecified Qualified Code(s): R60.9 - Edema, unspecified PLAN: Plan Evaluation and penetration of Theraskin with needle to stimulate bleeding to left medial LE ulcer performed today in clinic as annotated above. At home wound-care instructions: Theraskin #2 application is being tolerated well. The day of application on 10/14/23 the ulcer measured 214 square cm and on day #14 the ulcer measured 162.45 square cm. This is a 24% decrease in the square cm area of the ulcer from the application of the Theraskin skin graft. Due to meeting and exceeding the goal of therapy of a 20% reduction in the square cm area of the ulcer, the decision to apply a second application of Theraskin to the ulcer was made with the goal of an additional 20% reduction in the size of the ulcer which would be a minimum area of 129.96 square cm in 2 weeks. Theraskin #2 was evaluated today and is intact and a 25 G 1 syringe needle was used to penetrate the surface of the Theraskin and the patient's ulcer to induce bleeding and stimulate continued progress of Theraskin treatmenttoday. The Theraskin product covers roughly 90% of the ulcer. The Theraskin was remains secured with dermabond to the edges of the ulcer and is covered with wound veil and secured with steri-strips. The patient was advised to keep the dressings intact and clean and dry. Continue compression with D tubigrips b/l. Due to the delayed progress in wound healing of his venous ulcers, we discussed applying for advanced wound healing product for healing his ulcer. Due to the size of his ulcer, Theraskin application approval is being requested from his insurance as it is medically necessary for salvaging his limb and healing his ulcer. This was approved for 1 application and if goal of 20% reduction in size is met then additional application will be approved. Off-loading: The patient was instructed to avoid pressure and friction on the affected areas. Reposition every 2 hours at minimum. Avoid prolonged standing and/or dangling of legs. When seated, feet should be elevated at chest level. Frequent ambulation is encouraged. Encouraged lymphedema pump use. Diet: Patient encouraged to increase protein intake while taking caution to avoid high carbohydrate and/or sugar intake. Labs/cultures/imaging: Wound culture showed 1+ Pseudomonas that is sensitive to Levofloxacin and completed treatment on 08/16/23. Follow-up: Return in 1 week for wound care follow up and have secondary dressingchanged by home health Tuesday and Tuesday. Return sooner or report to the emergency room should symptoms worsen, or new symptoms arise. Note: [employer] speech recognition hair tinter software was used to create portions of this document. Sound-alike and misspelled words, as well as other hair tinter errors may be contained in the documentation. 11/04/23 2476 <Electronically signed by Patricia Garcia DO> Cosigner Signature (if applicable): CC: ~ Signed [facility] Work Phone: [phone] Progress note Author Patricia Garcia [facility] October 28, 2023 1:18pm Note Date/Time October 28, 2023 1 2:57pm [facility] [address] [place] [address] Progress Note - Wound Care 10/28/23 1241 MR#: [id number] Acct: [id number] Name: ESTEBAN URBINA Rep #:[id number] : 1955 68 From: Patricia Garcia DO PCP: Dr. Patricia Garcia, DO Status:REG RCR Location: History of Present Illness Date of Service: 10/28/23 Chief Complaint: venous ulcers of left lower extremity History of Wound: Mauricio is a 68 yo gentleman who is here today for evaluation of ulcers to to his bilateral lower legs. [facility]. The left LE ulcer started after he developed increased swelling and blisters of left leg in October and the right leg started sometime at the end of October. He was seen at PCP's office a culture was taken and it was resistant to several antibiotics. He was treated initially with Levaquin but had myalgias and then was treated with doxycycline which he finished 2 days ago. He denies improvementand is having swelling to his left calf and thigh. He has been having swelling to both lower extremities for many years and it has worsened over the last few months. He has not been compliant with compression. He has had increased pain especially in the left leg. He has clear yellow drainage and redness without odor or warmth. He is anti-coagulated on coumadin. He has been washing with Dial soap and witch ifrah. He had been using Collagen at times and using Calcium Alginate and covering with ABD pads during October. He was treated with 3M compression and Aquacel Ag. He was referred to the wound center for ongoing treatment. His ulcers have moderate to heavy drainage. He was recently hospitalized for cellulitis and edema for the last 10 days. He was in the hospital from 11/30/22 until 12/09/22 for treatment of cellulitis and edema. He underwent treatment with Vancomycin and IV lasix and compression. Discharged on 12/09/22. He returned to his assisted living apartment on Tuesday12/21/22. Subjective Subjective Mauricio is a 68-year-old male with longstanding history of chronic venous ulcerationto the left lower extremity. He has been using Aquacel Extra and tolerating treatment well. Theraskin remained intact and steri-strips and wound veil were also intact for the 2 week duration of application. He reports significantly decreased drainage. Upon removal of Theraskin today there has been improved depthand appearance of the ulcer as well as decrease in size. He continues to use super absorber for heavy drainage and size D Tubigrips for compression. 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 He continues to use his lymphedema pumps but continues to have painwith use of these pumps. Objective Data Objective Data Vital Signs: Vital Signs Temp Pulse Resp BP O2 Del Method 97.6 F L 69 18 156/86 H Room Air 10/28/23 10:43 10/28/23 10:43 10/28/23 10:43 10/28/23 10:43 10/28/23 10:43 Oxygen Delivery Method Room Air Physical Exam Const alert, oriented x3 and no apparent distress General Appearance: cooperative and comfortable HEENT normocephalic and head/scalp atraumatic Lymph Lymphatic: lymphedema moderate Resp normal respiratory effort Effort and Inspection: able to speak in complete sentences Cardio regular rate and regular rhythm Extremity General Extremity: edema bilateral lower extremity Details: severe Skin Wounds: wounds noted Wound Narrative: as in clinical panel Psych mental status grossly normal, thought process normal, cooperative and affect normal Debridement Note Debridement Note Wound debrided: left medial LE ulcer Laterality: Left Type of Debridement: Excisional debridement Anesthesia Used: 4% Lidocaine Solution and Cetacaine Depth: Down to and including healthy tissue and in the subcutaneous layer Percentage of wound debrided: 100 Instrument Used: 5mm curette Tissue Removed: Yellow slough, devitalized tissue Severity: Fat Layer Exposed Amount of bleeding with debridement: Mild Bleeding Controlled with: Compression and gauze Patient tolerated procedure: Patient tolerated procedure well Post-Debridement Measurements and Additional Note: Post-Debridement Measurements/Treatment DEBBIE - Nurse 1 - General Ulcer Assessment Start: 10/14/23 08:41 Freq: Status: Active Protocol: ONDINA Activity Type Activity Date Activity User E-sign Co-sign Detail Recorded Client Recorded Date Recorded By Document 10/14/23 08:42 RB Desktop 10/14/23 08:51 RB Document 10/21/23 09:30 KW Desktop 10/21/23 09:36 KW Document 10/28/23 10:43 GM Desktop 10/28/23 10:54 GM 10/14/23 10/21/23 10/28/23 08:42 09:30 10:43 WC - Today's Visit Information Type of service Follow-up Visit Follow-up Visit Follow-up Visit (Physician/APPLICATIONS SPECIALIST (Physician/APPLICATIONS SPECIALIST (Physician/APPLICATIONS SPECIALIST ) ) ) Arrival Mode Ambulatory Ambulatory, Ambulatory, Walker Walker Transfer Assistance None None Patient Identification Verified (Name & Yes Yes Yes ) Patient Requires Transmission-Based No No Precautions Vital Signs Temperature (97.8 F-99.1 F) 96.3 F L 95.4 F L 97.6 F L Temperature Source Temporal Temporal Temporal Pulse Rate (60-100) 72 66 69 Pulse Location Monitor Monitor Monitor Respiratory Rate (12-18) 18 18 18 Respiratory rate source Observation Observation Observation Oxygen Delivery Method Room Air Room Air Blood Pressure (90/60-120/80) 124/76 H 138/83 H 156/86 H Blood Pressure Mean (mm Hg) 92 101 109 Source Monitor Monitor Monitor Position Semi-Fowlers Semi-Fowlers Sitting Blood Pressure Location Left Arm Left Arm Right Arm History Since Last Visit- (Skip if this is Patient's initial visit) Have you changed medications since your No No No last visit? Any new allergies or adverse reactions No No No Had a fall/change in ADL's that may No No No increase risk of falls Signs or symptoms of abuse and/or No No No neglect since last visit Have you been in the hospital since your No No No last visit? Has dressing in place as prescribed Yes Yes Yes Has compression in place as prescribed Yes Yes Yes Has offloadiing in place as prescribed No No No Experienced any changes in pain level or No No No management Left Footwear Regular Shoe Regular Shoe Right Footwear Regular Shoe Regular Shoe Pain Scale: 0-10 Numeric Is Patient Pain Free? No Yes Yes LLE and left arm -Description Sharp -Intensity 6 -Duration (hours) Chronic -Pain Behavior Withdrawal from Touch -Pain Aggravating Factors ADL's,Walking -Alleviating Factors/Interventions Medication -Effectiveness of Alleviating Factor/ Minimally Intervention effective WC - Nurse 1 - General Ulcer Measurement Start: 10/14/23 08:41 Freq: Status: Active Protocol: Activity Type Activity Date Activity User E-sign Co-sign Detail Recorded Client Recorded Date Recorded By Document 10/14/23 08:42 RB Desktop 10/14/23 08:51 RB Document 10/21/23 09:30 KW Desktop 10/21/23 09:36 KW Document 10/28/23 10:43 GM Desktop 10/28/23 10:54 GM 10/14/23 10/21/23 10/28/23 08:42 09:30 10:43 Wound Center Nurse 1 #18 Left medial LE cluster -Combined with other wound No -Current Size (cm) - Length 8 0.1 -Current Size (cm) - Width 21.5 0.1 -Current Size (cm) - Depth 0.2 0.1 -Total Square Cm 172.0 0.01 -Epithelialization Small 1-33% -Tunneling No No -Undermining/Tunneling No No -Circular Undermining No No -Exudate Amt Large Large -Exudate Type Serosanguineous Yellow/Green -Wound Margin Distinct, Distinct, Outline Outline Attached Attached -Granulation Amt Medium (34-66%) Large (67-100%) -Granulation Quality Lingle,Red Red -Slough/Fibrin Yes -Necrosis Amt Medium (34-66%) Medium (34-66%) -Necrotic Tissue Type Adherent Slough Adherent Slough -Structure Exposed N/A N/A -Texture (Marie-wound Skin Appearance) Assessed Assessed -Moisture (Marie-wound Skin Appearance) Assessed Assessed -Color (Marie-wound Skin Appearance) Hemosiderin Assessed Staining -Temperature (Marie-wound Skin No Abnormality Appearance) (Pt Warm) -Tenderness on Palpation (Marie-wound No Skin Appearance) -Ulcer Cleansing Wound Cleanser Soap and Water -Foul Odor after Cleansing No -Anesthetic Used 4% Lidocaine Solution -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) Wound not messured d/t theraskin intact. Lower Limb Edema Present Yes Left Calf (cm) 41.5 40.5 40.3 Left Ankle (cm) 29.5 29 29.2 WC - Nurse 2 - General Ulcer CM Notes Start: 10/14/23 08:41 Freq: Status: Active Protocol: Activity Type Activity Date Activity User E-sign Co-sign Detail Recorded Client Recorded Date Recorded By Document 10/14/23 08:49 [id number] 10/14/23 09:59 GM Document 10/21/23 09:50 Desktop 10/21/23 09:58 10/14/23 10/21/23 08:49 09:50 Wound Center Nurse 2 #18 Left medial LE cluster -Time 09:04 09:50 -Correct Patient Yes Yes -Correct Side, Site, Position Yes Yes -Correct Procedure Yes Yes -Procedure Performed Yes No -Type of Procedure Debridement -Clinical Debridement Subcutaneous -Tissue Removed Subcutaneous -Tunneling No No -Undermining/Tunneling No No -Circular Undermining No No -Wound/Ulcer Outcome Not Healed Not Healed -Ulcer Cleansing Rinsed/ Not Cleansed Irrigated with Saline -Foul Odor after Cleansing No -Bioengineered Tissue Yes -Type of Bioengineered Tissue Theraskin -Expiration Date 01/17/28 -Product Lot Number [id number] -Percent Used 100 -Lot number of Saline Used [id number] -Bleeding Controlled with Pressure -Treatment Response Procedure Tolerated Well -Debridement - Subq, 1st 20sq cm No -Apply Skin Sub - 1st 100 sq cm - Legs 1 -Apply Skin Sub - each addt'l 100 sq 1 cm - Legs -Theraskin (per sq cm) 116 Pain Scale: 0-10 Numeric Is Patient Pain Free? Yes Yes - Nurse 3 - General Ulcer D/C NN Start: 10/14/23 08:41 Freq: Status: Active Protocol: Activity Type Activity Date Activity User E-sign Co-sign Detail Recorded Client Recorded Date Recorded By Document 10/14/23 09:46 KW Desktop 10/14/23 09:47 KW Document 10/21/23 10:14 RB Desktop 10/21/23 10:15 RB 10/14/23 10/21/23 09:46 10:14 Wound Care Center Nurse 3 #18 Left medial LE cluster -Primary Dressing Applied Optilok 8x12 Aquacel Extra, Optilok 8x12 -Other Dressing abd -Primary Dressing Covered/Secured with Dry Gauze & Dry Gauze & Roll Gauze, Roll Gauze, Secured with Secured with Tape Tape -Aquacel Extra 2 -Optilok 8x12 1 1 Right -Tubular Bandage Single Layer -Size of Tubigrip Used Size D -Size D ($) 1 Left -Tubular Bandage Single Layer -Size of Tubigrip Used Size D -Size D ($) 1 Treatment Response Procedure Tolerated Well Pain Scale: 0-10 Numeric Is Patient Pain Free? Yes No WC - Visit Discharge Discharge Condition Stable Stable Ambulatory Status Ambulatory, Ambulatory, Walker Walker Transportation Private Auto Private Auto Medication Reconcilliation completed & No No provided to patient/care provider Clinical Summary of Care Provided Yes Yes Assessment/Plan Assessment/Plan (1) Lymphedema: CODE(S): I89.0 - Lymphedema, not elsewhere classified (2) Hypertension: CODE(S): I10 - Essential (primary) hypertension QUALIFIERS: Hypertension type: primary hypertension Qualified Code(s): I10 - Essential (primary) hypertension (3) Hyperlipidemia: CODE(S): E78.5 - Hyperlipidemia, unspecified QUALIFIERS: Hyperlipidemia type: mixed hyperlipidemia Qualified Code(s): E78.2 - Mixed hyperlipidemia (4) History of DVT (deep vein thrombosis): CODE(S): Z86.718 - Personal history of other venous thrombosis and embolism (5) Venous insufficiency (chronic) (peripheral): CODE(S): I87.2 - Venous insufficiency (chronic) (peripheral) (6) Venous ulcer of left lower extremity with varicose veins: CODE(S): I83.029 - Varicose veins of left lower extremity with ulcer of unspecified site (7) Edema: CODE(S): R60.9 - Edema, unspecified QUALIFIERS: Edema type: unspecified Qualified Code(s): R60.9 - Edema, unspecified PLAN: Plan Evaluation and excisional debridement of left medial LE ulcer performed today inclinic as annotated above. At home wound-care instructions: Theraskin #1 application was tolerated well andshowed a decrease in the size area of the ulcer. The day of application on 10/14/23 the ulcer measured 214 square cm and today the ulcer measured 162.45 square cm. This is a 24% decrease in the square cm area of the ulcer from the application of the Theraskin skin graft. Due to meeting and exceeding the goal of therapy of a 20% reduction in the square cm area of the ulcer, the decision to apply a second application of Theraskin to the ulcer was made with the goal of an additional 20% reduction in the size of the ulcer which would be a minimumarea of 129.96 square cm in 2 weeks. Theraskin #2 was applied to the ulcer today. The Theraskin product was thawed and 100% of the product was applied to the ulcer which covered roughly 90% of the ulcer. The Theraskin was secured withdermabond to the edges of the ulcer and then covered with wound veil and securedwith steri-strips. The patient was advised to keep the dressings intact and clean and dry. Continue compression with D tubigrips b/l. Due to the delayed progress in wound healing of his venous ulcers, we discussed applying for advanced wound healing product for healing his ulcer. Due to the size of his ulcer, Theraskin application approval is being requested from his insurance as it is medically necessary for salvaging his limb and healing his ulcer. This was approved for 1 application and if goal of 20% reduction in size is met then additional application will be approved. Off-loading: The patient was instructed to avoid pressure and friction on the affected areas. Reposition every 2 hours at minimum. Avoid prolonged standing and/or dangling of legs. When seated, feet should be elevated at chest level. Frequent ambulation is encouraged. Encouraged lymphedema pump use. Diet: Patient encouraged to increase protein intake while taking caution to avoid high carbohydrate and/or sugar intake. Labs/cultures/imaging: Wound culture showed 1+ Pseudomonas that is sensitive to Levofloxacin and completed treatment on 08/16/23. Follow-up: Return in 1 week for wound care follow up and have secondary dressingchanged by home health Tuesday and Tuesday. Return sooner or report to the emergency room should symptoms worsen, or new symptoms arise. Note: [employer] speech recognition hair tinter software was used to create portions of this document. Sound-alike and misspelled words, as well as other hair tinter errors may be contained in the documentation. 10/28/23 1318 <Electronically signed by Patricia Garcia DO> Cosigner Signature (if applicable): CC: ~ Signed [facility] Work Phone: 1(217) 151-836401-12-2024 Progress note Author Patricia Garcia [facility] October 21, 2023 1:43pm Note Date/Time October 21, 2023 1 :42pm [facility] [address] [place] [id number] Progress Note - Wound Care 10/21/23 1333 MR#: [id number] Acct: [id number] Name: ESTEBAN URBINA Rep #:[id number] : 1955 68 From: Patricia Garcia DO PCP: Dr. Patricia Garcia, DO Status:REG RCR Location: History of Present Illness Date of Service: 10/21/23 Chief Complaint: venous ulcers of left lower extremity History of Wound: Mauricio is a 68 yo gentleman who is here today for evaluation of ulcers to to his bilateral lower legs. [facility]. The left LE ulcer started after he developed increased swelling and blisters of left leg in October and the right leg started sometime at the end of October. He was seen at PCP's office a culture was taken and it was resistant to several antibiotics. He was treated initially with Levaquin but had myalgias and then was treated with doxycycline which he finished 2 days ago. He denies improvementand is having swelling to his left calf and thigh. He has been having swelling to both lower extremities for many years and it has worsened over the last few months. He has not been compliant with compression. He has had increased pain especially in the left leg. He has clear yellow drainage and redness without odor or warmth. He is anti-coagulated on coumadin. He has been washing with Dial soap and witch ifrah. He had been using Collagen at times and using Calcium Alginate and covering with ABD pads during October. He was treated with 3M compression and Aquacel Ag. He was referred to the wound center for ongoing treatment. His ulcers have moderate to heavy drainage. He was recently hospitalized for cellulitis and edema for the last 10 days. He was in the hospital from 11/30/22 until 12/09/22 for treatment of cellulitis and edema. He underwent treatment with Vancomycin and IV lasix and compression. Discharged on 12/09/22. He returned to his assisted living apartment on Tuesday12/21/22. Subjective Subjective Patient is a 68-year-old male with longstanding history of chronic venous ulceration to the left lower extremity. He has been using Aquacel Extra and tolerating treatment well. Theraskin is intact and steri-strips and wound veil are also intact. He reports decreased drainage. He continues to use super absorber for heavy drainage and size D Tubigrips for compression. 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 He continues to use his lymphedema pumps but continues to have painwith use of these pumps. Objective Data Objective Data Vital Signs: Vital Signs Temp Pulse Resp BP O2 Del Method 95.4 F L 66 18 138/83 H Room Air 10/21/23 09:30 10/21/23 09:30 10/21/23 09:30 10/21/23 09:30 10/21/23 09:30 Oxygen Delivery Method Room Air Physical Exam Const alert, oriented x3 and no apparent distress General Appearance: cooperative and comfortable HEENT normocephalic and head/scalp atraumatic Lymph Lymphatic: lymphedema moderate Resp normal respiratory effort Effort and Inspection: able to speak in complete sentences Cardio regular rate and regular rhythm Extremity General Extremity: edema bilateral lower extremity Details: severe Skin Wounds: wounds noted Wound Narrative: as in clinical panel Psych mental status grossly normal, thought process normal, cooperative and affect normal Debridement Note Debridement Note Wound debrided: left medial LE cluster Patient tolerated procedure: Patient tolerated procedure well Debridement Free Text: A 23G 1 needle was used to penetrate the theraskin and wound veil and stimulate bleeding throughout the Theraskin application site. No debridement was completed: No debridement was completed today Post-Debridement Measurements and Additional Note: Post-Debridement Measurements/Treatment - Nurse 1 - General Ulcer Assessment Start: 10/14/23 08:41 Freq: Status: Active Protocol: ONDINA Activity Type Activity Date Activity User E-sign Co-sign Detail Recorded Client Recorded Date Recorded By Document 10/14/23 08:42 RB Desktop 10/14/23 08:51 RB Document 10/21/23 09:30 KW Desktop 10/21/23 09:36 KW 10/14/23 10/21/23 08:42 09:30 - Today's Visit Information Type of service Follow-up Visit Follow-up Visit (Physician/APPLICATIONS SPECIALIST (Physician/APPLICATIONS SPECIALIST ) ) Arrival Mode Ambulatory Ambulatory, Walker Transfer Assistance None Patient Identification Verified (Name & Yes Yes ) Patient Requires Transmission-Based No Precautions Vital Signs Temperature (97.8 F-99.1 F) 96.3 F L 95.4 F L Temperature Source Temporal Temporal Pulse Rate (60-100) 72 66 Pulse Location Monitor Monitor Respiratory Rate (12-18) 18 18 Respiratory rate source Observation Observation Oxygen Delivery Method Room Air Blood Pressure (90/60-120/80) 124/76 H 138/83 H Blood Pressure Mean (mm Hg) 92 101 Source Monitor Monitor Position Semi-Fowlers Semi-Fowlers Blood Pressure Location Left Arm Left Arm History Since Last Visit- (Skip if this is Patient's initial visit) Have you changed medications since your No No last visit? Any new allergies or adverse reactions No No Had a fall/change in ADL's that may No No increase risk of falls Signs or symptoms of abuse and/or No No neglect since last visit Have you been in the hospital since your No No last visit? Has dressing in place as prescribed Yes Yes Has compression in place as prescribed Yes Yes Has offloadiing in place as prescribed No No Experienced any changes in pain level or No No management Left Footwear Regular Shoe Right Footwear Regular Shoe Pain Scale: 0-10 Numeric Is Patient Pain Free? No Yes LLE and left arm -Description Sharp -Intensity 6 -Duration (hours) Chronic -Pain Behavior Withdrawal from Touch -Pain Aggravating Factors ADL's,Walking -Alleviating Factors/Interventions Medication -Effectiveness of Alleviating Factor/ Minimally Intervention effective WC - Nurse 1 - General Ulcer Measurement Start: 10/14/23 08:41 Freq: Status: Active Protocol: Activity Type Activity Date Activity User E-sign Co-sign Detail Recorded Client Recorded Date Recorded By Document 10/14/23 08:42 RB Desktop 10/14/23 08:51 RB Document 10/21/23 09:30 KW Desktop 10/21/23 09:36 KW 10/14/23 10/21/23 08:42 09:30 Wound Center Nurse 1 #18 Left medial LE cluster -Combined with other wound No -Current Size (cm) - Length 8 -Current Size (cm) - Width 21.5 -Current Size (cm) - Depth 0.2 -Total Square Cm 172.0 -Tunneling No -Undermining/Tunneling No -Circular Undermining No -Exudate Amt Large -Exudate Type Serosanguineous -Wound Margin Distinct, Outline Attached -Granulation Amt Medium (34-66%) -Granulation Quality Lingle,Red -Slough/Fibrin Yes -Necrosis Amt Medium (34-66%) -Necrotic Tissue Type Adherent Slough -Structure Exposed N/A -Texture (Marie-wound Skin Appearance) Assessed -Moisture (Marie-wound Skin Appearance) Assessed -Color (Marie-wound Skin Appearance) Hemosiderin Staining -Temperature (Marie-wound Skin No Abnormality Appearance) (Pt Warm) -Tenderness on Palpation (Marei-wound No Skin Appearance) -Ulcer Cleansing Wound Cleanser Soap and Water -Foul Odor after Cleansing No -Anesthetic Used 4% Lidocaine Solution -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) Wound not messured d/t theraskin intact. Lower Limb Edema Present Yes Left Calf (cm) 41.5 40.5 Left Ankle (cm) 29.5 29 WC - Nurse 2 - General Ulcer CM Notes Start: 10/14/23 08:41 Freq: Status: Active Protocol: Activity Type Activity Date Activity User E-sign Co-sign Detail Recorded Client Recorded Date Recorded By Document 10/14/23 08:49 GM [id number] 10/14/23 09:59 GM Document 10/21/23 09:50 GM Desktop 10/21/23 09:58 GM 10/14/23 10/21/23 08:49 09:50 Wound Center Nurse 2 #18 Left medial LE cluster -Time 09:04 09:50 -Correct Patient Yes Yes -Correct Side, Site, Position Yes Yes -Correct Procedure Yes Yes -Procedure Performed Yes No -Type of Procedure Debridement -Clinical Debridement Subcutaneous -Tissue Removed Subcutaneous -Tunneling No No -Undermining/Tunneling No No -Circular Undermining No No -Wound/Ulcer Outcome Not Healed Not Healed -Ulcer Cleansing Rinsed/ Not Cleansed Irrigated with Saline -Foul Odor after Cleansing No -Bioengineered Tissue Yes -Type of Bioengineered Tissue Theraskin -Expiration Date 01/17/28 -Product Lot Number [id number] -Percent Used 100 -Lot number of Saline Used [id number] -Bleeding Controlled with Pressure -Treatment Response Procedure Tolerated Well -Debridement - Subq, 1st 20sq cm No -Apply Skin Sub - 1st 100 sq cm - Legs 1 -Apply Skin Sub - each addt'l 100 sq 1 cm - Legs -Theraskin (per sq cm) 116 Pain Scale: 0-10 Numeric Is Patient Pain Free? Yes Yes - Nurse 3 - General Ulcer D/C NN Start: 10/14/23 08:41 Freq: Status: Active Protocol: Activity Type Activity Date Activity User E-sign Co-sign Detail Recorded Client Recorded Date Recorded By Document 10/14/23 09:46 KW Desktop 10/14/23 09:47 KW Document 10/21/23 10:14 RB Desktop 10/21/23 10:15 RB 10/14/23 10/21/23 09:46 10:14 Wound Care Center Nurse 3 #18 Left medial LE cluster -Primary Dressing Applied Optilok 8x12 Aquacel Extra, Optilok 8x12 -Other Dressing abd -Primary Dressing Covered/Secured with Dry Gauze & Dry Gauze & Roll Gauze, Roll Gauze, Secured with Secured with Tape Tape -Aquacel Extra 2 -Optilok 8x12 1 1 Right -Tubular Bandage Single Layer -Size of Tubigrip Used Size D -Size D ($) 1 Left -Tubular Bandage Single Layer -Size of Tubigrip Used Size D -Size D ($) 1 Treatment Response Procedure Tolerated Well Pain Scale: 0-10 Numeric Is Patient Pain Free? Yes No WC - Visit Discharge Discharge Condition Stable Stable Ambulatory Status Ambulatory, Ambulatory, Walker Walker Transportation Private Auto Private Auto Medication Reconcilliation completed & No No provided to patient/care provider Clinical Summary of Care Provided Yes Yes Assessment/Plan Assessment/Plan (1) Lymphedema: CODE(S): I89.0 - Lymphedema, not elsewhere classified (2) Hypertension: CODE(S): I10 - Essential (primary) hypertension QUALIFIERS: Hypertension type: primary hypertension Qualified Code(s): I10 - Essential (primary) hypertension (3) Hyperlipidemia: CODE(S): E78.5 - Hyperlipidemia, unspecified QUALIFIERS: Hyperlipidemia type: mixed hyperlipidemia Qualified Code(s): E78.2 - Mixed hyperlipidemia (4) History of DVT (deep vein thrombosis): CODE(S): Z86.718 - Personal history of other venous thrombosis and embolism (5) Venous insufficiency (chronic) (peripheral): CODE(S): I87.2 - Venous insufficiency (chronic) (peripheral) (6) Venous ulcer of left lower extremity with varicose veins: CODE(S): I83.029 - Varicose veins of left lower extremity with ulcer of unspecified site (7) Edema: CODE(S): R60.9 - Edema, unspecified QUALIFIERS: Edema type: unspecified Qualified Code(s): R60.9 - Edema, unspecified PLAN: Plan Evaluation and perforation of Theraskin graft performed today in clinic as annotated above. At home wound-care instructions: Theraskin application intact. Keep clean and dry. Continue compression with D tubigrips b/l. Due to the delayed progress in wound healing of his venous ulcers, we discussed applying for advanced wound healing product for healing his ulcer. Due to the size of his ulcer, Theraskin application approval is being requested from his insurance as it is medically necessary for salvaging his limb and healing his ulcer. This was approved for 1 application. Off-loading: The patient was instructed to avoid pressure and friction on the affected areas. Reposition every 2 hours at minimum. Avoid prolonged standing and/or dangling of legs. When seated, feet should be elevated at chest level. Frequent ambulation is encouraged. Encouraged lymphedema pump use. Diet: Patient encouraged to increase protein intake while taking caution to avoid high carbohydrate and/or sugar intake. Labs/cultures/imaging: Wound culture showed 1+ Pseudomonas that is sensitive to Levofloxacin and completed treatment on 08/16/23. Follow-up: Return in 1 week for wound care follow up and have secondary dressingchanged by home health Tuesday and Tuesday. Return sooner or report to the emergency room should symptoms worsen, or new symptoms arise. Note: [employer] speech recognition hair tinter software was used to create portions of this document. Sound-alike and misspelled words, as well as other hair tinter errors may be contained in the documentation. 10/21/23 1343 <Electronically signed by Patricia Garcia DO> Cosigner Signature (if applicable): CC: ~ Signed [facility] Work Phone: 1([phone] 222-414901-05-2024 Progress note Author Patricia Garcia [facility] October 14, 2023 12:45pm Note Date/Time October 14, 2023 12 :38pm [facility] [address] [place] [address] Progress Note - Wound Care 10/14/23 1231 MR#: [id number] Acct: [id number] Name: ESTEBAN URBINA Rep #:[id number] : 1955 68 From: Patricia Garcia DO PCP: Dr. Patricia Garcia, DO Status:REG RCR Location: History of Present Illness Date of Service: 10/14/23 Chief Complaint: venous ulcers of left lower extremity History of Wound: Mauricio is a 68 yo gentleman who is here today for evaluation of ulcers to to his bilateral lower legs. [facility]. The left LE ulcer started after he developed increased swelling and blisters of left leg in October and the right leg started sometime at the end of October. He was seen at PCP's office a culture was taken and it was resistant to several antibiotics. He was treated initially with Levaquin but had myalgias and then was treated with doxycycline which he finished 2 days ago. He denies improvementand is having swelling to his left calf and thigh. He has been having swelling to both lower extremities for many years and it has worsened over the last few months. He has not been compliant with compression. He has had increased pain especially in the left leg. He has clear yellow drainage and redness without odor or warmth. He is anti-coagulated on coumadin. He has been washing with Dial soap and witch ifrah. He had been using Collagen at times and using Calcium Alginate and covering with ABD pads during October. He was treated with 3M compression and Aquacel Ag. He was referred to the wound center for ongoing treatment. His ulcers have moderate to heavy drainage. He was recently hospitalized for cellulitis and edema for the last 10 days. He was in the hospital from 11/30/22 until 12/09/22 for treatment of cellulitis and edema. He underwent treatment with Vancomycin and IV lasix and compression. Discharged on 12/09/22. He returned to his assisted living apartment on Tuesday12/21/22. Subjective Subjective Patient is a 68-year-old male with longstanding history of chronic venous ulceration to the left lower extremity. He has been using Aquacel Ag and tolerating treatment well. He continues to use super absorber for heavy drainageand size D Tubigrips for compression. 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 He continues to use his lymphedema pumps but continues to have pain with use of these pumps. Objective Data Objective Data Vital Signs: Vital Signs Temp Pulse Resp BP 96.3 F L 72 18 124/76 H 10/14/23 08:42 10/14/23 08:42 10/14/23 08:42 10/14/23 08:42 Physical Exam Const alert, oriented x3 and no apparent distress General Appearance: cooperative and comfortable HEENT normocephalic and head/scalp atraumatic Lymph Lymphatic: lymphedema moderate Resp normal respiratory effort Effort and Inspection: able to speak in complete sentences Cardio regular rate and regular rhythm Extremity General Extremity: edema bilateral lower extremity Details: severe Skin Wounds: wounds noted Wound Narrative: as in clinical panel Psych mental status grossly normal, thought process normal, cooperative and affect normal Debridement Note Debridement Note Wound debrided: left medial LE cluster Laterality: Left Type of Debridement: Excisional debridement Anesthesia Used: 4% Lidocaine Solution, 5% Lidocaine Gel and Cetacaine Depth: Down to and including healthy tissue and in the subcutaneous layer Percentage of wound debrided: 100 Instrument Used: 7mm curette Tissue Removed: Yellow slough, devitalized tissue Severity: Fat Layer Exposed Amount of bleeding with debridement: Mild Bleeding Controlled with: Compression and gauze Patient tolerated procedure: Patient tolerated procedure well Post-Debridement Measurements and Additional Note: Post-Debridement Measurements/Treatment - Nurse 1 - General Ulcer Assessment Start: 10/14/23 08:41 Freq: Status: Active Protocol: ONDINA Activity Type Activity Date Activity User E-sign Co-sign Detail Recorded Client Recorded Date Recorded By Document 10/14/23 08:42 Desktop 10/14/23 08:51 RB 10/14/23 08:42 - Today's Visit Information Type of service Follow-up Visit (Physician/APPLICATIONS SPECIALIST ) Arrival Mode Ambulatory Transfer Assistance None Patient Identification Verified (Name & Yes ) Patient Requires Transmission-Based No Precautions Vital Signs Temperature (97.8 F-99.1 F) 96.3 F L Temperature Source Temporal Pulse Rate (60-100) 72 Pulse Location Monitor Respiratory Rate (12-18) 18 Respiratory rate source Observation Blood Pressure (90/60-120/80) 124/76 H Blood Pressure Mean (mm Hg) 92 Source Monitor Position Semi-Fowlers Blood Pressure Location Left Arm History Since Last Visit- (Skip if this is Patient's initial visit) Have you changed medications since your No last visit? Any new allergies or adverse reactions No Had a fall/change in ADL's that may No increase risk of falls Signs or symptoms of abuse and/or No neglect since last visit Have you been in the hospital since your No last visit? Has dressing in place as prescribed Yes Has compression in place as prescribed Yes Has offloadiing in place as prescribed No Experienced any changes in pain level or No management Pain Scale: 0-10 Numeric Is Patient Pain Free? No LLE and left arm -Description Sharp -Intensity 6 -Duration (hours) Chronic -Pain Behavior Withdrawal from Touch -Pain Aggravating Factors ADL's,Walking -Alleviating Factors/Interventions Medication -Effectiveness of Alleviating Factor/ Minimally Intervention effective WC - Nurse 1 - General Ulcer Measurement Start: 10/14/23 08:41 Freq: Status: Active Protocol: Activity Type Activity Date Activity User E-sign Co-sign Detail Recorded Client Recorded Date Recorded By Document 10/14/23 08:42 RB Desktop 10/14/23 08:51 RB 10/14/23 08:42 Wound Center Nurse 1 #18 Left medial LE cluster -Combined with other wound No -Current Size (cm) - Length 8 -Current Size (cm) - Width 21.5 -Current Size (cm) - Depth 0.2 -Total Square Cm 172.0 -Tunneling No -Undermining/Tunneling No -Circular Undermining No -Exudate Amt Large -Exudate Type Serosanguineous -Wound Margin Distinct, Outline Attached -Granulation Amt Medium (34-66%) -Granulation Quality Lingle,Red -Slough/Fibrin Yes -Necrosis Amt Medium (34-66%) -Necrotic Tissue Type Adherent Slough -Structure Exposed N/A -Texture (Marie-wound Skin Appearance) Assessed -Moisture (Marie-wound Skin Appearance) Assessed -Color (Marie-wound Skin Appearance) Hemosiderin Staining -Temperature (Marie-wound Skin No Abnormality Appearance) (Pt Warm) -Tenderness on Palpation (Marie-wound No Skin Appearance) -Ulcer Cleansing Wound Cleanser -Foul Odor after Cleansing No -Anesthetic Used 4% Lidocaine Solution Lower Limb Edema Present Yes Left Calf (cm) 41.5 Left Ankle (cm) 29.5 WC - Nurse 2 - General Ulcer CM Notes Start: 10/14/23 08:41 Freq: Status: Active Protocol: Activity Type Activity Date Activity User E-sign Co-sign Detail Recorded Client Recorded Date Recorded By Document 10/14/23 08:49 GM [id number] 10/14/23 09:59 GM 10/14/23 08:49 Wound Center Nurse 2 #18 Left medial LE cluster -Time 09:04 -Correct Patient Yes -Correct Side, Site, Position Yes -Correct Procedure Yes -Procedure Performed Yes -Type of Procedure Debridement -Clinical Debridement Subcutaneous -Tissue Removed Subcutaneous -Tunneling No -Undermining/Tunneling No -Circular Undermining No -Wound/Ulcer Outcome Not Healed -Ulcer Cleansing Rinsed/ Irrigated with Saline -Foul Odor after Cleansing No -Bioengineered Tissue Yes -Type of Bioengineered Tissue Theraskin -Expiration Date 01/17/28 -Product Lot Number [id number] -Percent Used 100 -Lot number of Saline Used [id number] -Bleeding Controlled with Pressure -Treatment Response Procedure Tolerated Well -Debridement - Subq, 1st 20sq cm No -Apply Skin Sub - 1st 100 sq cm - Legs 1 -Apply Skin Sub - each addt'l 100 sq 1 cm - Legs -Theraskin (per sq cm) 116 Pain Scale: 0-10 Numeric Is Patient Pain Free? Yes - Nurse 3 - General Ulcer D/C NN Start: 10/14/23 08:41 Freq: Status: Active Protocol: Activity Type Activity Date Activity User E-sign Co-sign Detail Recorded Client Recorded Date Recorded By Document 10/14/23 09:46 KW Desktop 10/14/23 09:47 KW 10/14/23 09:46 Wound Care Center Nurse 3 #18 Left medial LE cluster -Primary Dressing Applied Optilok 8x12 -Primary Dressing Covered/Secured with Dry Gauze & Roll Gauze, Secured with Tape -Optilok 8x12 1 Pain Scale: 0-10 Numeric Is Patient Pain Free? Yes WC - Visit Discharge Discharge Condition Stable Ambulatory Status Ambulatory, Walker Transportation Private Auto Medication Reconcilliation completed & No provided to patient/care provider Clinical Summary of Care Provided Yes Assessment/Plan Assessment/Plan (1) Lymphedema: CODE(S): I89.0 - Lymphedema, not elsewhere classified (2) Hypertension: CODE(S): I10 - Essential (primary) hypertension QUALIFIERS: Hypertension type: primary hypertension Qualified Code(s): I10 - Essential (primary) hypertension (3) Hyperlipidemia: CODE(S): E78.5 - Hyperlipidemia, unspecified QUALIFIERS: Hyperlipidemia type: mixed hyperlipidemia Qualified Code(s): E78.2 - Mixed hyperlipidemia (4) History of DVT (deep vein thrombosis): CODE(S): Z86.718 - Personal history of other venous thrombosis and embolism (5) Venous insufficiency (chronic) (peripheral): CODE(S): I87.2 - Venous insufficiency (chronic) (peripheral) (6) Venous ulcer of left lower extremity with varicose veins: CODE(S): I83.029 - Varicose veins of left lower extremity with ulcer of unspecified site (7) Edema: CODE(S): R60.9 - Edema, unspecified QUALIFIERS: Edema type: unspecified Qualified Code(s): R60.9 - Edema, unspecified PLAN: Plan Debridement performed today in clinic as annotated above. At home wound-care instructions: Theraskin applied today to 80% of the left lower leg ulcer using 100% of a 7.6 cm x 15.24 cm Theraskin product. This was secured with Dermabond to the edges of the Theraskin skin graft and then coveredwith wound veil and secured with steri-strips. Continue compression with D tubigrips b/l. Due to the delayed progress in wound healing of his venous ulcers, we discussed applying for advanced wound healing product for healing his ulcer. Due to the size of his ulcer, Theraskin application approval is being requested from his insurance as it is medically necessary for salvaging his limb and healing his ulcer. This was approved for 1 application. Off-loading: The patient was instructed to avoid pressure and friction on the affected areas. Reposition every 2 hours at minimum. Avoid prolonged standing and/or dangling of legs. When seated, feet should be elevated at chest level. Frequent ambulation is encouraged. Encouraged lymphedema pump use. Diet: Patient encouraged to increase protein intake while taking caution to avoid high carbohydrate and/or sugar intake. Labs/cultures/imaging: Wound culture showed 1+ Pseudomonas that is sensitive to Levofloxacin and completed treatment on 08/16/23. Follow-up: Return in 1 week for wound care follow up and have secondary dressingchanged by [facility] Tuesday and Tuesday. Return sooner or report to the emergency room should symptoms worsen, or new symptoms arise. Note: Unirisx speech recognition hair tinter software was used to create portions of this document. Sound-alike and misspelled words, as well as other hair tinter errors may be contained in the documentation. 10/14/23 1245 <Electronically signed by Patricia Garcia DO> Cosigner Signature (if applicable): CC: ~ Signed [facility] Work Phone: [phone] 923-566012-29-2023 Progress note Author Patricia Garcia [facility] October 07, 2023 12:24pm Note Date/Time October 07, 2023 12:24pm [facility] [address] [place] [address] Progress Note - Wound Care 10/07/23 1220 MR#: [id number] Acct: [id number] Name: ESTEBAN URBINA Rep #:[id number] : 1955 68 From: Patricia Garcia DO PCP: Dr. Patricia Garcia DO Status:REG RCR Location: History of Present Illness Date of Service: 10/07/23 Chief Complaint: venous ulcers of left lower extremity History of Wound: Mauricio is a 68 yo gentleman who is here today for evaluation of ulcers to to his bilateral lower legs. [facility]. The left LE ulcer started after he developed increased swelling and blisters of left leg in October and the right leg started sometime at the end of October. He was seen at PCP's office a culture was taken and it was resistant to several antibiotics. He was treated initially with Levaquin but had myalgias and then was treated with doxycycline which he finished 2 days ago. He denies improvementand is having swelling to his left calf and thigh. He has been having swelling to both lower extremities for many years and it has worsened over the last few months. He has not been compliant with compression. He has had increased pain especially in the left leg. He has clear yellow drainage and redness without odor or warmth. He is anti-coagulated on coumadin. He has been washing with Dial soap and witch ifrah. He had been using Collagen at times and using Calcium Alginate and covering with ABD pads during October. He was treated with 3M compression and Aquacel Ag. He was referred to the wound center for ongoing treatment. His ulcers have moderate to heavy drainage. He was recently hospitalized for cellulitis and edema for the last 10 days. He was in the hospital from 11/30/22 until 12/09/22 for treatment of cellulitis and edema. He underwent treatment with Vancomycin and IV lasix and compression. Discharged on 12/09/22. He returned to his assisted living apartment on Tuesday12/21/22. Subjective Subjective Patient is a 68-year-old male with longstanding history of chronic venous ulceration to the left lower extremity. He has been using Aquacel Ag and tolerating treatment well. He continues to use super absorber for heavy drainageand size D Tubigrips for compression. 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 He continues to use his lymphedema pumps but continues to have pain with use of these pumps. Objective Data Objective Data Vital Signs: Vital Signs Temp Pulse Resp BP O2 Del Method 96.2 F L 78 18 115/76 Room Air 10/07/23 09:22 10/07/23 09:22 10/07/23 09:22 10/07/23 09:22 10/07/23 09:22 Oxygen Delivery Method Room Air Physical Exam Const alert, oriented x3 and no apparent distress General Appearance: cooperative and comfortable HEENT normocephalic and head/scalp atraumatic Lymph Lymphatic: lymphedema moderate Resp normal respiratory effort Effort and Inspection: able to speak in complete sentences Cardio regular rate and regular rhythm Extremity General Extremity: edema bilateral lower extremity Details: severe Skin Wounds: wounds noted Wound Narrative: as in clinical panel Psych mental status grossly normal, thought process normal, cooperative and affect normal Debridement Note Debridement Note Wound debrided: left medial LE cluster Laterality: Left Type of Debridement: Excisional debridement Anesthesia Used: 4% Lidocaine Solution, 5% Lidocaine Gel and Cetacaine Depth: Down to and including healthy tissue and in the subcutaneous layer Percentage of wound debrided: 100 Instrument Used: 7mm curette Tissue Removed: Yellow slough, devitalized tissue Severity: Fat Layer Exposed Amount of bleeding with debridement: Mild Bleeding Controlled with: Compression and gauze Patient tolerated procedure: Patient tolerated procedure well Post-Debridement Measurements and Additional Note: Post-Debridement Measurements/Treatment DEBBIE - Nurse 1 - General Ulcer Assessment Start: 09/23/23 10:18 Freq: Status: Active Protocol: ONDINA Activity Type Activity Date Activity User E-sign Co-sign Detail Recorded Client Recorded Date Recorded By Document 09/23/23 10:18 BMF Desktop 09/23/23 10:29 BM Document 09/30/23 09:43 KW Desktop 09/30/23 09:55 KW Document 10/07/23 09:22 KW Desktop 10/07/23 09:27 KW 09/23/23 09/30/23 10/07/23 10:18 09:43 09:22 WC - Today's Visit Information Type of service Follow-up Visit Follow-up Visit Follow-up Visit (Physician/APPLICATIONS SPECIALIST (Physician/APPLICATIONS SPECIALIST (Physician/APPLICATIONS SPECIALIST ) ) ) Arrival Mode Ambulatory, Ambulatory, Ambulatory, Walker Walker Walker Transfer Assistance None Patient Identification Verified (Name & Yes Yes Yes ) Patient Requires Transmission-Based No Precautions Vital Signs Temperature (97.8 F-99.1 F) 96.9 F L 96.6 F L 96.2 F L Temperature Source Temporal Temporal Temporal Pulse Rate (60-100) 61 76 78 Pulse Location Monitor Monitor Monitor Respiratory Rate (12-18) 16 18 18 Respiratory rate source Observation Observation Observation Oxygen Delivery Method Room Air Room Air Room Air Blood Pressure (90/60-120/80) 131/71 H 112/69 115/76 Blood Pressure Mean (mm Hg) 91 83 89 Source Monitor Monitor Monitor Position Sitting Semi-Fowlers Semi-Fowlers Blood Pressure Location Right Forearm Right Arm Right Arm History Since Last Visit- (Skip if this is Patient's initial visit) Have you changed medications since your No No No last visit? Any new allergies or adverse reactions No No No Had a fall/change in ADL's that may No No No increase risk of falls Signs or symptoms of abuse and/or No No No neglect since last visit Have you been in the hospital since your No No No last visit? Has dressing in place as prescribed Yes Yes Yes Has compression in place as prescribed Yes Yes Yes Has offloadiing in place as prescribed N/A No No Experienced any changes in pain level or No No No management Left Footwear Regular Shoe Regular Shoe Regular Shoe Right Footwear Regular Shoe Regular Shoe Pain Scale: 0-10 Numeric Is Patient Pain Free? Yes Yes Yes - Nurse 1 - General Ulcer Measurement Start: 09/23/23 10:18 Freq: Status: Active Protocol: Activity Type Activity Date Activity User E-sign Co-sign Detail Recorded Client Recorded Date Recorded By Document 09/23/23 10:18 [facility] Desktop 09/23/23 10:29 [facility] Document 09/30/23 09:43 KW Desktop 09/30/23 09:55 KW Document 10/07/23 09:22 KW Desktop 10/07/23 09:27 KW 09/23/23 09/30/23 10/07/23 10:18 09:43 09:22 Wound Center Nurse 1 #18 Left medial LE cluster -Combined with other wound No -Current Size (cm) - Length 11.5 9.5 11.7 -Current Size (cm) - Width 20.1 23 20.5 -Current Size (cm) - Depth 0.2 0.2 0.3 -Total Square Cm 231.15 218.5 239.85 -Epithelialization None Present -Tunneling No -Undermining/Tunneling No -Circular Undermining No -Exudate Amt Large Large Large -Exudate Type Serosanguineous Serosanguineous Purulent -Wound Margin Distinct, Distinct, Distinct, Outline Outline Outline Attached Attached Attached -Granulation Amt Small (1-33%) Small (1-33%) Medium (34-66%) -Granulation Quality Red Lingle Red -Slough/Fibrin Yes -Necrosis Amt Large (67-100%) Large (67-100%) Small (1-33%) -Necrotic Tissue Type Adherent Slough Adherent Slough Adherent Slough -Texture (Marie-wound Skin Appearance) Assessed, Assessed Assessed Scarring -Moisture (Marie-wound Skin Appearance) Assessed Maceration, Assessed,Dry/ Weeping Scaly -Color (Marie-wound Skin Appearance) Assessed, Erythema Assessed, Hemosiderin Erythema Staining -Temperature (Marie-wound Skin No Abnormality No Abnormality No Abnormality Appearance) (Pt Warm) (Pt Warm) (Pt Warm) -Tenderness on Palpation (Marie-wound No Skin Appearance) -Ulcer Cleansing Soap and Water Soap and Water Rinsed/ Irrigated with Saline -Foul Odor after Cleansing No No -Anesthetic Used 4% Lidocaine 4% Lidocaine 4% Lidocaine Solution Solution Solution Lower Limb Edema Present Yes Left Calf (cm) 42.3 41.5 42.5 Left Ankle (cm) 29.1 29.5 29.5 WC - Nurse 2 - General Ulcer CM Notes Start: 09/23/23 10:18 Freq: Status: Active Protocol: Activity Type Activity Date Activity User E-sign Co-sign Detail Recorded Client Recorded Date Recorded By Document 09/23/23 10:52 MW Desktop 09/23/23 11:18 MW Document 09/30/23 12:24 PL [id number] 09/30/23 12:26 PL Document 10/07/23 09:52 GM Desktop 10/07/23 10:10 GM 09/23/23 09/30/23 10/07/23 10:52 12:24 09:52 Wound Center Nurse 2 #18 Left medial LE cluster -Time 10:57 10:02 09:52 -Correct Patient Yes Yes Yes -Correct Side, Site, Position Yes Yes Yes -Correct Procedure Yes Yes Yes -Procedure Performed Yes Yes Yes -Type of Procedure Debridement Debridement Debridement -Clinical Debridement Subcutaneous Subcutaneous Subcutaneous -Tissue Removed Subcutaneous Subcutaneous Subcutaneous -Post Debridement (cm) - Length 10.5 11.7 11 -Post Debridement (cm) - Width 17.0 20.0 18 -Post Debridement (cm) - Depth 0.2 0.2 0.2 -Total Square (Post) (cm) 178.50 234.00 198 -Area of Debridement (cm) - Length 10.5 11.7 11 -Area of Debridement (cm) - Width 17.0 20.0 18 -Total Square (Area) (cm) 178.50 234.00 198 -Tunneling No No No -Undermining/Tunneling No No No -Circular Undermining No No No -Wound/Ulcer Outcome Not Healed Not Healed Not Healed -Ulcer Cleansing Rinsed/ Rinsed/ Rinsed/ Irrigated with Irrigated with Irrigated with Saline Saline Saline -Foul Odor after Cleansing No No No -Bioengineered Tissue No No No -Bleeding Controlled with Pressure Pressure Pressure -Treatment Response Procedure Procedure Procedure Tolerated Well Tolerated Well Tolerated Well -Offloading No -Debridement - Subq, 1st 20sq cm Yes Yes Yes -Debridement, SubQ, ea addt'l 20sq cm 8 11 9 or part thereof Pain Scale: 0-10 Numeric Is Patient Pain Free? Yes Yes Yes WC - Nurse 3 - General Ulcer D/C NN Start: 09/23/23 10:18 Freq: Status: Active Protocol: Activity Type Activity Date Activity User E-sign Co-sign Detail Recorded Client Recorded Date Recorded By Document 09/23/23 11:25 RB Desktop 09/23/23 11:26 RB Document 09/30/23 10:37 KW Desktop 09/30/23 10:38 KW Document 10/07/23 10:17 KW Desktop 10/07/23 10:19 KW 09/23/23 09/30/23 10/07/23 11:25 10:37 10:17 Wound Care Center Nurse 3 #18 Left medial LE cluster -Ulcer Cleansing Rinsed/ Rinsed/ Irrigated with Irrigated with Saline Saline -Primary Dressing Applied Aquacel AG 4x4, Aquacel AG 4x4, Aquacel Extra, Optilok 8x12 Optilok 8x12 Optilok 8x12 -Primary Dressing Covered/Secured with Dry Gauze & Dry Gauze & Dry Gauze & Roll Gauze, Roll Gauze, Roll Gauze, Secured with Secured with Secured with Tape Tape Tape -Aquacel Extra 2 -Aquacel AG 4x4 2 2 -Optilok 8x12 1 1 1 Right -Tubular Bandage Single Layer -Size of Tubigrip Used Size D -Size D ($) 1 Left -Tubular Bandage Single Layer Single Layer -Size of Tubigrip Used Size D Size D Size D -Size D ($) 1 1 Treatment Response Procedure Tolerated Well Pain Scale: 0-10 Numeric Is Patient Pain Free? Yes Yes Yes WC - Visit Discharge Discharge Condition Stable Stable Stable Ambulatory Status Ambulatory, Walker Ambulatory, Walker Walker Transportation Private Auto Private Auto Private Auto Medication Reconcilliation completed & No No No provided to patient/care provider Clinical Summary of Care Provided Yes Yes Yes Assessment/Plan Assessment/Plan (1) Lymphedema: CODE(S): I89.0 - Lymphedema, not elsewhere classified (2) Hypertension: CODE(S): I10 - Essential (primary) hypertension QUALIFIERS: Hypertension type: primary hypertension Qualified Code(s): I10 - Essential (primary) hypertension (3) Hyperlipidemia: CODE(S): E78.5 - Hyperlipidemia, unspecified QUALIFIERS: Hyperlipidemia type: mixed hyperlipidemia Qualified Code(s): E78.2 - Mixed hyperlipidemia (4) History of DVT (deep vein thrombosis): CODE(S): Z86.718 - Personal history of other venous thrombosis and embolism (5) Venous insufficiency (chronic) (peripheral): CODE(S): I87.2 - Venous insufficiency (chronic) (peripheral) (6) Venous ulcer of left lower extremity with varicose veins: CODE(S): I83.029 - Varicose veins of left lower extremity with ulcer of unspecified site (7) Edema: CODE(S): R60.9 - Edema, unspecified QUALIFIERS: Edema type: unspecified Qualified Code(s): R60.9 - Edema, unspecified PLAN: Plan Debridement performed today in clinic as annotated above. At home wound-care instructions: Will continue to use Aquacel Ag to ulcer and will cover with super absorber changed daily for heavy drainage. Continue compression with D tubigrips b/l. Due to the delayed progress in wound healing of his venous ulcers, we discussed applying for advanced wound healing product for healing his ulcer. Due to the size of his ulcer, Theraskin application approval is being requested from his insurance as it is medically necessary for salvaging his limb and healing his ulcer. Off-loading: The patient was instructed to avoid pressure and friction on the affected areas. Reposition every 2 hours at minimum. Avoid prolonged standing and/or dangling of legs. When seated, feet should be elevated at chest level. Frequent ambulation is encouraged. Encouraged lymphedema pump use. Diet: Patient encouraged to increase protein intake while taking caution to avoid high carbohydrate and/or sugar intake. Labs/cultures/imaging: Wound culture showed 1+ Pseudomonas that is sensitive to Levofloxacin and completed treatment on 08/16/23. Follow-up: Return in 1 week for wound care follow up and have secondary dressingchanged by home health Tuesday and Tuesday. Return sooner or report to the emergency room should symptoms worsen, or new symptoms arise. Note: Unir[employer] speech recognition hair tinter software was used to create portions of this document. Sound-alike and misspelled words, as well as other hair tinter errors may be contained in the documentation. 10/07/23 1224 <Electronically signed by Patricia Garcia DO> Cosigner Signature (if applicable): CC: ~ Signed [facility] Work Phone: 1([phone] 895-774612-22-2023 Progress note Author Patricia Garcia [facility] September 30, 2023 12:27pm Note Date/Time September 30, 2023 12:27pm [facility] [address] [place] [address] Progress Note - Wound Care 09/30/23 1224 MR#: [id number] Acct: [id number] Name: ESTEBAN URBINA Rep #:[id number] : 1955 68 From: Patricia Garcia DO PCP: Dr. Patricia Garcia, DO Status:REG RCR Location: History of Present Illness Date of Service: 09/30/23 Chief Complaint: venous ulcers of left lower extremity History of Wound: Mauricio is a 68 yo gentleman who is here today for evaluation of ulcers to to his bilateral lower legs. He has been treated multiple times in [facility] at the wound healing center for similar ulcers. The left LE ulcer started after he developed increased swelling and blisters of left leg in October and the right leg started sometime at the end of October. He was seen at PCP's office a culture was taken and it was resistant to several antibiotics. He was treated initially with Levaquin but had myalgias and then was treated with doxycycline which he finished 2 days ago. He denies improvementand is having swelling to his left calf and thigh. He has been having swelling to both lower extremities for many years and it has worsened over the last few months. He has not been compliant with compression. He has had increased pain especially in the left leg. He has clear yellow drainage and redness without odor or warmth. He is anti-coagulated on coumadin. He has been washing with Dial soap and witch ifrah. He had been using Collagen at times and using Calcium Alginate and covering with ABD pads during October. He was treated with 3M compression and Aquacel Ag. He was referred to the wound center for ongoing treatment. His ulcers have moderate to heavy drainage. He was recently hospitalized for cellulitis and edema for the last 10 days. He was in the hospital from 11/30/22 until 12/09/22 for treatment of cellulitis and edema. He underwent treatment with Vancomycin and IV lasix and compression. Discharged on 12/09/22. He returned to his assisted living apartment on Tuesday12/21/22. Subjective Subjective Patient is a 68-year-old male with longstanding history of chronic venous ulceration to the left lower extremity. He has been using Aquacel Ag and tolerating treatment well. He continues to use super absorber for heavy drainageand size D Tubigrips for compression. 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 He continues to use his lymphedema pumps but continues to have pain with use of these pumps. Objective Data Objective Data Vital Signs: Vital Signs Temp Pulse Resp BP O2 Del Method 96.6 F L 76 18 112/69 Room Air 09/30/23 09:43 09/30/23 09:43 09/30/23 09:43 09/30/23 09:43 09/30/23 09:43 Oxygen Delivery Method Room Air Physical Exam Const alert, oriented x3 and no apparent distress General Appearance: cooperative and comfortable HEENT normocephalic and head/scalp atraumatic Lymph Lymphatic: lymphedema moderate Resp normal respiratory effort Effort and Inspection: able to speak in complete sentences Cardio regular rate and regular rhythm Extremity General Extremity: edema bilateral lower extremity Details: severe Skin Wounds: wounds noted Wound Narrative: as in clinical panel Psych mental status grossly normal, thought process normal, cooperative and affect normal Debridement Note Debridement Note Wound debrided: left medial LE cluster Laterality: Left Type of Debridement: Excisional debridement Anesthesia Used: 4% Lidocaine Solution, 5% Lidocaine Gel and Cetacaine Depth: Down to and including healthy tissue and in the subcutaneous layer Percentage of wound debrided: 100 Instrument Used: 7mm curette Tissue Removed: Yellow slough, devitalized tissue Severity: Fat Layer Exposed Amount of bleeding with debridement: Mild Bleeding Controlled with: Compression and gauze Patient tolerated procedure: Patient tolerated procedure well Post-Debridement Measurements and Additional Note: Post-Debridement Measurements/Treatment - Nurse 1 - General Ulcer Assessment Start: 09/23/23 10:18 Freq: Status: Active Protocol: ONDINA Activity Type Activity Date Activity User E-sign Co-sign Detail Recorded Client Recorded Date Recorded By Document 09/23/23 10:18 [facility] Desktop 09/23/23 10:29 BM Document 09/30/23 09:43 KW Desktop 09/30/23 09:55 KW 09/23/23 09/30/23 10:18 09:43 - Today's Visit Information Type of service Follow-up Visit Follow-up Visit (Physician/APPLICATIONS SPECIALIST (Physician/APPLICATIONS SPECIALIST ) ) Arrival Mode Ambulatory, Ambulatory, Walker Walker Transfer Assistance None Patient Identification Verified (Name & Yes Yes ) Patient Requires Transmission-Based No Precautions Vital Signs Temperature (97.8 F-99.1 F) 96.9 F L 96.6 F L Temperature Source Temporal Temporal Pulse Rate (60-100) 61 76 Pulse Location Monitor Monitor Respiratory Rate (12-18) 16 18 Respiratory rate source Observation Observation Oxygen Delivery Method Room Air Room Air Blood Pressure (90/60-120/80) 131/71 H 112/69 Blood Pressure Mean (mm Hg) 91 83 Source Monitor Monitor Position Sitting Semi-Fowlers Blood Pressure Location Right Forearm Right Arm History Since Last Visit- (Skip if this is Patient's initial visit) Have you changed medications since your No No last visit? Any new allergies or adverse reactions No No Had a fall/change in ADL's that may No No increase risk of falls Signs or symptoms of abuse and/or No No neglect since last visit Have you been in the hospital since your No No last visit? Has dressing in place as prescribed Yes Yes Has compression in place as prescribed Yes Yes Has offloadiing in place as prescribed N/A No Experienced any changes in pain level or No No management Left Footwear Regular Shoe Regular Shoe Right Footwear Regular Shoe Regular Shoe Pain Scale: 0-10 Numeric Is Patient Pain Free? Yes Yes WC - Nurse 1 - General Ulcer Measurement Start: 09/23/23 10:18 Freq: Status: Active Protocol: Activity Type Activity Date Activity User E-sign Co-sign Detail Recorded Client Recorded Date Recorded By Document 09/23/23 10:18 [facility] Desktop 09/23/23 10:29 [facility] Document 09/30/23 09:43 KW Desktop 09/30/23 09:55 KW 09/23/23 09/30/23 10:18 09:43 Wound Center Nurse 1 #18 Left medial LE cluster -Combined with other wound No -Current Size (cm) - Length 11.5 9.5 -Current Size (cm) - Width 20.1 23 -Current Size (cm) - Depth 0.2 0.2 -Total Square Cm 231.15 218.5 -Epithelialization None Present -Tunneling No -Undermining/Tunneling No -Circular Undermining No -Exudate Amt Large Large -Exudate Type Serosanguineous Serosanguineous -Wound Margin Distinct, Distinct, Outline Outline Attached Attached -Granulation Amt Small (1-33%) Small (1-33%) -Granulation Quality [place] -Slough/Fibrin Yes -Necrosis Amt Large (67-100%) Large (67-100%) -Necrotic Tissue Type Adherent Slough Adherent Slough -Texture (Marie-wound Skin Appearance) Assessed, Assessed Scarring -Moisture (Marie-wound Skin Appearance) Assessed Maceration, Weeping -Color (Marie-wound Skin Appearance) Assessed, Erythema Hemosiderin Staining -Temperature (Marie-wound Skin No Abnormality No Abnormality Appearance) (Pt Warm) (Pt Warm) -Tenderness on Palpation (Marie-wound No Skin Appearance) -Ulcer Cleansing Soap and Water Soap and Water -Foul Odor after Cleansing No -Anesthetic Used 4% Lidocaine 4% Lidocaine Solution Solution Lower Limb Edema Present Yes Left Calf (cm) 42.3 41.5 Left Ankle (cm) 29.1 29.5 WC - Nurse 2 - General Ulcer CM Notes Start: 09/23/23 10:18 Freq: Status: Active Protocol: Activity Type Activity Date Activity User E-sign Co-sign Detail Recorded Client Recorded Date Recorded By Document 09/23/23 10:52 MW Desktop 09/23/23 11:18 MW 09/23/23 10:52 Wound Center Nurse 2 #18 Left medial LE cluster -Time 10:57 -Correct Patient Yes -Correct Side, Site, Position Yes -Correct Procedure Yes -Procedure Performed Yes -Type of Procedure Debridement -Clinical Debridement Subcutaneous -Tissue Removed Subcutaneous -Post Debridement (cm) - Length 10.5 -Post Debridement (cm) - Width 17.0 -Post Debridement (cm) - Depth 0.2 -Total Square (Post) (cm) 178.50 -Area of Debridement (cm) - Length 10.5 -Area of Debridement (cm) - Width 17.0 -Total Square (Area) (cm) 178.50 -Tunneling No -Undermining/Tunneling No -Circular Undermining No -Wound/Ulcer Outcome Not Healed -Ulcer Cleansing Rinsed/ Irrigated with Saline -Foul Odor after Cleansing No -Bioengineered Tissue No -Bleeding Controlled with Pressure -Treatment Response Procedure Tolerated Well -Offloading No -Debridement - Subq, 1st 20sq cm Yes -Debridement, SubQ, ea addt'l 20sq cm 8 or part thereof Pain Scale: 0-10 Numeric Is Patient Pain Free? Yes - Nurse 3 - General Ulcer D/C NN Start: 09/23/23 10:18 Freq: Status: Active Protocol: Activity Type Activity Date Activity User E-sign Co-sign Detail Recorded Client Recorded Date Recorded By Document 09/23/23 11:25 RB Desktop 09/23/23 11:26 RB Document 09/30/23 10:37 KW Desktop 09/30/23 10:38 KW 09/23/23 09/30/23 11:25 10:37 Wound Care Center Nurse 3 #18 Left medial LE cluster -Ulcer Cleansing Rinsed/ Irrigated with Saline -Primary Dressing Applied Aquacel AG 4x4, Aquacel AG 4x4, Optilok 8x12 Optilok 8x12 -Primary Dressing Covered/Secured with Dry Gauze & Dry Gauze & Roll Gauze, Roll Gauze, Secured with Secured with Tape Tape -Aquacel AG 4x4 2 2 -Optilok 8x12 1 1 Right -Tubular Bandage Single Layer -Size of Tubigrip Used Size D -Size D ($) 1 Left -Tubular Bandage Single Layer Single Layer -Size of Tubigrip Used Size D Size D -Size D ($) 1 1 Treatment Response Procedure Tolerated Well Pain Scale: 0-10 Numeric Is Patient Pain Free? Yes Yes WC - Visit Discharge Discharge Condition Stable Stable Ambulatory Status Ambulatory, Walker Walker Transportation Private Auto Private Auto Medication Reconcilliation completed & No No provided to patient/care provider Clinical Summary of Care Provided Yes Yes Assessment/Plan Assessment/Plan (1) Lymphedema: CODE(S): I89.0 - Lymphedema, not elsewhere classified (2) Hypertension: CODE(S): I10 - Essential (primary) hypertension QUALIFIERS: Hypertension type: primary hypertension Qualified Code(s): I10 - Essential (primary) hypertension (3) Hyperlipidemia: CODE(S): E78.5 - Hyperlipidemia, unspecified QUALIFIERS: Hyperlipidemia type: mixed hyperlipidemia Qualified Code(s): E78.2 - Mixed hyperlipidemia (4) History of DVT (deep vein thrombosis): CODE(S): Z86.718 - Personal history of other venous thrombosis and embolism (5) Venous insufficiency (chronic) (peripheral): CODE(S): I87.2 - Venous insufficiency (chronic) (peripheral) (6) Venous ulcer of left lower extremity with varicose veins: CODE(S): I83.029 - Varicose veins of left lower extremity with ulcer of unspecified site (7) Edema: CODE(S): R60.9 - Edema, unspecified QUALIFIERS: Edema type: unspecified Qualified Code(s): R60.9 - Edema, unspecified PLAN: Plan Debridement performed today in clinic as annotated above. At home wound-care instructions: Will continue to Aquacel Ag to ulcer and will cover with super absorber changed daily for heavy drainage. Continue compressionwith D tubigrips b/l. Off-loading: The patient was instructed to avoid pressure and friction on the affected areas. Reposition every 2 hours at minimum. Avoid prolonged standing and/or dangling of legs. When seated, feet should be elevated at chest level. Frequent ambulation is encouraged. Encouraged lymphedema pump use. Diet: Patient encouraged to increase protein intake while taking caution to avoid high carbohydrate and/or sugar intake. Labs/cultures/imaging: Wound culture showed 1+ Pseudomonas that is sensitive to Levofloxacin and completed treatment on 08/16/23. Follow-up: Return in 1 week for wound care follow up and have secondary dressing[facility] Tuesday and Tuesday. Return sooner or report to the emergency room should symptoms worsen, or new symptoms arise. Note: [employer] speech recognition hair tinter software was used to create portions of this document. Sound-alike and misspelled words, as well as other hair tinter errors may be contained in the documentation. 09/30/23 1227 <Electronically signed by Patricia Garcia DO> Cosigner Signature (if applicable): CC: ~ Signed [facility] Work Phone: 1([phone] 384-957912-15-2023 Progress note Author Patricia Garcia [facility] September 23, 2023 2:04pm Note Date/Time September 23, 2023 2:04pm [facility] [address] [place] [id number] Progress Note - Wound Care 09/23/23 1355 MR#: [id number] Acct: [id number] Name: ESTEBAN URBINA Rep #:[id number] : 1955 68 From: Patricia Garcia DO PCP: Dr. Patricia Garcia DO Status:REG RCR Location: History of Present Illness Date of Service: 09/23/23 Chief Complaint: venous ulcers of left lower extremity History of Wound: Mauricio is a 68 yo gentleman who is here today for evaluation of ulcers to to his bilateral lower legs. He has been treated multiple times in thepast at the wound healing center for similar ulcers. The left LE ulcer started after he developed increased swelling and blisters of left leg in October and the right leg started sometime at the end of October. He was seen at PCP's office a culture was taken and it was resistant to several antibiotics. He was treated initially with Levaquin but had myalgias and then was treated with doxycycline which he finished 2 days ago. He denies improvementand is having swelling to his left calf and thigh. He has been having swelling to both lower extremities for many years and it has worsened over the last few months. He has not been compliant with compression. He has had increased pain especially in the left leg. He has clear yellow drainage and redness without odor or warmth. He is anti-coagulated on coumadin. He has been washing with Dial soap and witch ifrah. He had been using Collagen at times and using Calcium Alginate and covering with ABD pads during October. He was treated with 3M compression and Aquacel Ag. He was referred to the wound center for ongoing treatment. His ulcers have moderate to heavy drainage. He was recently hospitalized for cellulitis and edema for the last 10 days. He was in the hospital from 11/30/22 until 12/09/22 for treatment of cellulitis and edema. He underwent treatment with Vancomycin and IV lasix and compression. Discharged on 12/09/22. He returned to his assisted living apartment on Tuesday12/21/22. Subjective Subjective Patient is a 68-year-old male with longstanding history of chronic venous ulceration to the left lower extremity. He has not been seen for approx. 5 weeks. He was last seen by Dr. Sheppard for an extensive debridement which he did not tolerate well and then he developed COVID. He had problems with wet to dry Dakins gauze dressings last week and requested an allternative dressing which he has been using Aquacel Ag and tolerating treatment well. He continues to use super absorber for heavy drainage and size D Tubigrips for compression. Mauricio has a history of bilateral DVT and chronic venous insufficiency, in additionto lymphedema. He continues to use his lymphedema pumps but continues to have pain with use of these pumps. Objective Data Objective Data Vital Signs: Vital Signs Temp Pulse Resp BP O2 Del Method 96.9 F L 61 16 131/71 H Room Air 09/23/23 10:18 09/23/23 10:18 09/23/23 10:18 09/23/23 10:18 09/23/23 10:18 Oxygen Delivery Method Room Air Physical Exam Const alert, oriented x3 and no apparent distress General Appearance: cooperative and comfortable HEENT normocephalic and head/scalp atraumatic Lymph Lymphatic: lymphedema moderate Resp normal respiratory effort Effort and Inspection: able to speak in complete sentences Cardio regular rate and regular rhythm Extremity General Extremity: edema bilateral lower extremity Details: severe Skin Wounds: wounds noted Wound Narrative: as in clinical panel Psych mental status grossly normal, thought process normal, cooperative and affect normal Debridement Note Debridement Note Wound debrided: left medial LE cluster Laterality: Left Type of Debridement: Excisional debridement Anesthesia Used: 4% Lidocaine Solution and 5% Lidocaine Gel Depth: Down to and including healthy tissue and in the subcutaneous layer Percentage of wound debrided: 100 Instrument Used: - (misonix ultrasonic debridement) Tissue Removed: Yellow slough, devitalized tissue Severity: Fat Layer Exposed Amount of bleeding with debridement: Mild Bleeding Controlled with: Compression and gauze Patient tolerated procedure: Patient tolerated procedure well Post-Debridement Measurements and Additional Note: Post-Debridement Measurements/Treatment WC - Nurse 1 - General Ulcer Assessment Start: 09/23/23 10:18 Freq: Status: Active Protocol: ONDINA Activity Type Activity Date Activity User E-sign Co-sign Detail Recorded Client Recorded Date Recorded By Document 09/23/23 10:18 [facility] Desktop 09/23/23 10:29 [facility] 09/23/23 10:18 - Today's Visit Information Type of service Follow-up Visit (Physician/APPLICATIONS SPECIALIST ) Arrival Mode Ambulatory, Walker Transfer Assistance None Patient Identification Verified (Name & Yes ) Patient Requires Transmission-Based No Precautions Vital Signs Temperature (97.8 F-99.1 F) 96.9 F L Temperature Source Temporal Pulse Rate (60-100) 61 Pulse Location Monitor Respiratory Rate (12-18) 16 Respiratory rate source Observation Oxygen Delivery Method Room Air Blood Pressure (90/60-120/80) 131/71 H Blood Pressure Mean (mm Hg) 91 Source Monitor Position Sitting Blood Pressure Location Right Forearm History Since Last Visit- (Skip if this is Patient's initial visit) Have you changed medications since your No last visit? Any new allergies or adverse reactions No Had a fall/change in ADL's that may No increase risk of falls Signs or symptoms of abuse and/or No neglect since last visit Have you been in the hospital since your No last visit? Has dressing in place as prescribed Yes Has compression in place as prescribed Yes Has offloadiing in place as prescribed N/A Experienced any changes in pain level or No management Left Footwear Regular Shoe Right Footwear Regular Shoe Pain Scale: 0-10 Numeric Is Patient Pain Free? Yes WC - Nurse 1 - General Ulcer Measurement Start: 09/23/23 10:18 Freq: Status: Active Protocol: Activity Type Activity Date Activity User E-sign Co-sign Detail Recorded Client Recorded Date Recorded By Document 09/23/23 10:18 [facility] Desktop 09/23/23 10:29 [facility] 09/23/23 10:18 Wound Center Nurse 1 #18 Left medial LE cluster -Combined with other wound No -Current Size (cm) - Length 11.5 -Current Size (cm) - Width 20.1 -Current Size (cm) - Depth 0.2 -Total Square Cm 231.15 -Epithelialization None Present -Tunneling No -Undermining/Tunneling No -Circular Undermining No -Exudate Amt Large -Exudate Type Serosanguineous -Wound Margin Distinct, Outline Attached -Granulation Amt Small (1-33%) -Granulation Quality Red -Slough/Fibrin Yes -Necrosis Amt Large (67-100%) -Necrotic Tissue Type Adherent Slough -Texture (Marie-wound Skin Appearance) Assessed, Scarring -Moisture (Marie-wound Skin Appearance) Assessed -Color (Marie-wound Skin Appearance) Assessed, Hemosiderin Staining -Temperature (Marie-wound Skin No Abnormality Appearance) (Pt Warm) -Tenderness on Palpation (Marie-wound No Skin Appearance) -Ulcer Cleansing Soap and Water -Foul Odor after Cleansing No -Anesthetic Used 4% Lidocaine Solution Lower Limb Edema Present Yes Left Calf (cm) 42.3 Left Ankle (cm) 29.1 WC - Nurse 2 - General Ulcer CM Notes Start: 09/23/23 10:18 Freq: Status: Active Protocol: Activity Type Activity Date Activity User E-sign Co-sign Detail Recorded Client Recorded Date Recorded By Document 09/23/23 10:52 MW Desktop 09/23/23 11:18 MW 09/23/23 10:52 Wound Center Nurse 2 #18 Left medial LE cluster -Time 10:57 -Correct Patient Yes -Correct Side, Site, Position Yes -Correct Procedure Yes -Procedure Performed Yes -Type of Procedure Debridement -Clinical Debridement Subcutaneous -Tissue Removed Subcutaneous -Post Debridement (cm) - Length 10.5 -Post Debridement (cm) - Width 17.0 -Post Debridement (cm) - Depth 0.2 -Total Square (Post) (cm) 178.50 -Area of Debridement (cm) - Length 10.5 -Area of Debridement (cm) - Width 17.0 -Total Square (Area) (cm) 178.50 -Tunneling No -Undermining/Tunneling No -Circular Undermining No -Wound/Ulcer Outcome Not Healed -Ulcer Cleansing Rinsed/ Irrigated with Saline -Foul Odor after Cleansing No -Bioengineered Tissue No -Bleeding Controlled with Pressure -Treatment Response Procedure Tolerated Well -Offloading No -Debridement - Subq, 1st 20sq cm Yes -Debridement, SubQ, ea addt'l 20sq cm 8 or part thereof Pain Scale: 0-10 Numeric Is Patient Pain Free? Yes WC - Nurse 3 - General Ulcer D/C NN Start: 09/23/23 10:18 Freq: Status: Active Protocol: Activity Type Activity Date Activity User E-sign Co-sign Detail Recorded Client Recorded Date Recorded By Document 09/23/23 11:25 Desktop 09/23/23 11:26 09/23/23 11:25 Wound Care Center Nurse 3 #18 Left medial LE cluster -Ulcer Cleansing Rinsed/ Irrigated with Saline -Primary Dressing Applied Aquacel AG 4x4, Optilok 8x12 -Primary Dressing Covered/Secured with Dry Gauze & Roll Gauze, Secured with Tape -Aquacel AG 4x4 2 -Optilok 8x12 1 Right -Tubular Bandage Single Layer -Size of Tubigrip Used Size D -Size D ($) 1 Left -Tubular Bandage Single Layer -Size of Tubigrip Used Size D -Size D ($) 1 Treatment Response Procedure Tolerated Well Pain Scale: 0-10 Numeric Is Patient Pain Free? Yes WC - Visit Discharge Discharge Condition Stable Ambulatory Status Ambulatory, Walker Transportation Private Auto Medication Reconcilliation completed & No provided to patient/care provider Clinical Summary of Care Provided Yes Assessment/Plan Assessment/Plan (1) Lymphedema: CODE(S): I89.0 - Lymphedema, not elsewhere classified (2) Hypertension: CODE(S): I10 - Essential (primary) hypertension QUALIFIERS: Hypertension type: primary hypertension Qualified Code(s): I10 - Essential (primary) hypertension (3) Hyperlipidemia: CODE(S): E78.5 - Hyperlipidemia, unspecified (4) History of DVT (deep vein thrombosis): CODE(S): Z86.718 - Personal history of other venous thrombosis and embolism (5) Venous insufficiency (chronic) (peripheral): CODE(S): I87.2 - Venous insufficiency (chronic) (peripheral) (6) Venous ulcer of left lower extremity with varicose veins: CODE(S): I83.029 - Varicose veins of left lower extremity with ulcer of unspecified site (7) Edema: CODE(S): R60.9 - Edema, unspecified QUALIFIERS: Edema type: unspecified Qualified Code(s): R60.9 - Edema, unspecified PLAN: Plan Debridement performed today in clinic as annotated above. At home wound-care instructions: Will continue to Aquacel Ag to ulcer and will cover with super absorber changed daily for heavy drainage. Continue compressionwith D tubigrips b/l. Off-loading: The patient was instructed to avoid pressure and friction on the affected areas. Reposition every 2 hours at minimum. Avoid prolonged standing and/or dangling of legs. When seated, feet should be elevated at chest level. Frequent ambulation is encouraged. Encouraged lymphedema pump use. Diet: Patient encouraged to increase protein intake while taking caution to avoid high carbohydrate and/or sugar intake. Labs/cultures/imaging: Wound culture showed 1+ Pseudomonas that is sensitive to Levofloxacin and will complete treatment on 08/16/23. Follow-up: Return in 1 week for wound care follow up and have secondary dressingchanged by home health Tuesday and Tuesday. Return sooner or report to the emergency room should symptoms worsen, or new symptoms arise. Note: [employer] speech recognition hair tinter software was used to create portions of this document. Sound-alike and misspelled words, as well as other hair tinter errors may be contained in the documentation. 09/23/23 1404 <Electronically signed by Patricia Garcia DO> Cosigner Signature (if applicable): CC: ~ Signed [facility] Work Phone: [phone] Progress note Author Froylan Sheppard [facility] August 25, 2023 1:26pm Note Date/Time August 25, 2023 1:14pm [facility] [address] [place] [address] Progress Note - Wound Care 08/25/23 1305 MR#: [id number] Acct: [id number] Name: ESTEBAN URBINA Rep #:[id number] : 1955 68 From: Froylan wilson DPM PCP: Dr. Patricia Garcia, Status:REG RCR Location: History of Present Illness Date of Service: 08/25/23 Chief Complaint: venous ulcers of left lower extremity History of Wound: Mauricio is a 68 yo gentleman who is here today for evaluation of ulcers to to his bilateral lower legs. He has been treated multiple times in thepast at the wound healing center for similar ulcers. The left LE ulcer started after he developed increased swelling and blisters of left leg in October and the right leg started sometime at the end of October. He was seen at PCP's office a culture was taken and it was resistant to several antibiotics. He was treated initially with Levaquin but had myalgias and then was treated with doxycycline which he finished 2 days ago. He denies improvementand is having swelling to his left calf and thigh. He has been having swelling to both lower extremities for many years and it has worsened over the last few months. He has not been compliant with compression. He has had increased pain especially in the left leg. He has clear yellow drainage and redness without odor or warmth. He is anti-coagulated on coumadin. He has been washing with Dial soap and witch ifrah. He had been using Collagen at times and using Calcium Alginate and covering with ABD pads during October. He was treated with 3M compression and Aquacel Ag. He was referred to the wound center for ongoing treatment. His ulcers have moderate to heavy drainage. He was recently hospitalized for cellulitis and edema for the last 10 days. He was in the hospital from 11/30/22 until 12/09/22 for treatment of cellulitis and edema. He underwent treatment with Vancomycin and IV lasix and compression. Discharged on 12/09/22. He returned to his assisted living apartment on Tuesday12/21/22. Subjective Subjective Patient is a 68-year-old male with longstanding history of chronic venous ulceration to the left lower extremity. Continues to follow the wound care center with Dr. Garcia. Patient states that he has history of bilateral DVT and chronic venous insufficiency, in addition to lymphedema. He states he does use his lymphedema pumps but continues to have pain with use of these pumps. Patient states he is hypersensitive to pain and does not routinely tolerate debridement or compression. He returns for extensive debridement of the lower extremity wound. He denies constitutional symptoms. Denies further complaints. Objective Data Objective Data Vital Signs: Vital Signs Temp Pulse Resp BP O2 Del Method 96.6 F L 77 18 155/95 H Room Air 08/25/23 11:12 08/25/23 11:12 08/25/23 11:12 08/25/23 11:12 08/25/23 11:12 Oxygen Delivery Method Room Air Physical Exam Const alert, oriented x3, no apparent distress and well nourished General Appearance: cooperative Nutritional Appearance: morbidly obese HEENT normocephalic Eyes General Eye: normal appearance of both eyes Neck General: normal visual inspection Lymph Lymphatic: no lymphadenopathy noted and lymphedema Resp normal respiratory effort Cardio regular rate and regular rhythm Extremity normal capillary refill Extremity Narrative: Vascular: DP and PT pulses palpable bilateral with capillary fill time less than4 seconds to the lesser digits. Dermatological: Stemmer sign positive second digit left foot. Skin changes consistent with lymphedema. There is a large circumferential ulceration noted to the left lower extremity starting anteriorly wrapping medially, posteriorly, and to the lateral leg. There is a healthy appearing skin island bridging at the anterior lateral leg. Wound bed demonstrates thin layer of fibrotic tissue with wound edges demonstrating slight rubor secondary to chronic venous insufficiency. No signs of infection. Musculoskeletal: Muscle strength 5 of 5 age-appropriate. Does have pain to palpation to the left lower extremity about ulcerative site. Skin no jaundice Neuro moves all extremities Debridement Note Debridement Note Wound debrided: Left lower extremity Laterality: Left Wound Grade/Stage: Brito stage I Type of Debridement: Excisional debridement Anesthesia Used: - (20 cc 1% lidocaine plain for proximal complete lower extremity block) Depth: Down to and including healthy tissue and in the subcutaneous layer Percentage of wound debrided: 100 Instrument Used: 7mm curette Tissue Removed: Fibrous, devitalized subcutaneous, biofilm, slough Severity: Fat Layer Exposed Amount of bleeding with debridement: Mild Bleeding Controlled with: Compression and gauze Post-Debridement Measurements and Additional Note: Post-Debridement Measurements/Treatment - Nurse 1 - General Ulcer Assessment Start: 08/12/23 09:40 Freq: Status: Active Protocol: ONDINA Activity Type Activity Date Activity User E-sign Co-sign Detail Recorded Client Recorded Date Recorded By Document 08/12/23 09:40 BMF Desktop 08/12/23 09:46 BMF Document 08/18/23 09:49 DL Desktop 08/18/23 10:02 DL Document 08/25/23 11:12 KW Desktop 08/25/23 11:20 KW 08/12/23 08/18/23 08/25/23 09:40 09:49 11:12 - Today's Visit Information Type of service Follow-up Visit Follow-up Visit Follow-up Visit (Physician/APPLICATIONS SPECIALIST (Physician/APPLICATIONS SPECIALIST (Physician/APPLICATIONS SPECIALIST ) ) ) Arrival Mode Ambulatory, Ambulatory, Walker Walker Walker Transfer Assistance None None Patient Identification Verified (Name & Yes Yes Yes ) Patient Requires Transmission-Based No No Precautions Vital Signs Temperature (97.8 F-99.1 F) 96.4 F L 97.2 F L 96.6 F L Temperature Source Temporal Temporal Temporal Pulse Rate (60-100) 75 73 77 Pulse Location Monitor Monitor Monitor Respiratory Rate (12-18) 18 22 H 18 Respiratory rate source Observation Observation Observation Oxygen Delivery Method Room Air Room Air Blood Pressure (90/60-120/80) 144/84 H 132/76 H 155/95 H Blood Pressure Mean (mm Hg) 104 94 115 Source Monitor Monitor Position Sitting Semi-Fowlers Blood Pressure Location Right Arm Left Arm History Since Last Visit- (Skip if this is Patient's initial visit) Have you changed medications since your No No last visit? Any new allergies or adverse reactions No No Had a fall/change in ADL's that may No No increase risk of falls Signs or symptoms of abuse and/or No No neglect since last visit Have you been in the hospital since your No No last visit? Has dressing in place as prescribed Yes Yes Has compression in place as prescribed Yes Yes Has offloadiing in place as prescribed N/A N/A Experienced any changes in pain level or No No management Left Footwear Custom Shoe Right Footwear Custom Shoe Pain Scale: 0-10 Numeric Is Patient Pain Free? Yes Yes Yes WC - Nurse 1 - General Ulcer Measurement Start: 08/12/23 09:40 Freq: Status: Active Protocol: Activity Type Activity Date Activity User E-sign Co-sign Detail Recorded Client Recorded Date Recorded By Document 08/12/23 09:40 BMF Desktop 08/12/23 09:46 BMF Document 08/18/23 09:49 DL Desktop 08/18/23 10:02 DL Document 08/25/23 11:12 KW Desktop 08/25/23 11:20 KW 08/12/23 08/18/23 08/25/23 09:40 09:49 11:12 Wound Center Nurse 1 #18 Left medial LE cluster -Combined with other wound No -Current Size (cm) - Length 10.3 11 20.5 -Current Size (cm) - Width 22.3 22.2 9.5 -Current Size (cm) - Depth 0.3 0.3 0.3 -Total Square Cm 229.69 244.2 194.75 -Tunneling No -Undermining/Tunneling No -Circular Undermining No -Exudate Amt Large Medium -Exudate Type Serosanguineous Serosanguineous -Wound Margin Distinct, Distinct, Distinct, Outline Outline Outline Attached Attached Attached -Granulation Amt Medium (34-66%) Medium (34-66%) Large (67-100%) -Granulation Quality Lingle Red Red -Slough/Fibrin Yes -Necrosis Amt Medium (34-66%) Medium (34-66%) Small (1-33%) -Necrotic Tissue Type Adherent Slough Adherent Slough Adherent Slough -Structure Exposed N/A N/A -Texture (Marie-wound Skin Appearance) Assessed Localized Edema Assessed, ,Scarring Localized Edema -Moisture (Marie-wound Skin Appearance) Assessed No Abnormality Assessed -Color (Marie-wound Skin Appearance) Assessed Erythema, Assessed, Hemosiderin Erythema Staining -Temperature (Marie-wound Skin No Abnormality No Abnormality No Abnormality Appearance) (Pt Warm) (Pt Warm) (Pt Warm) -Tenderness on Palpation (Marie-wound No No Skin Appearance) -Ulcer Cleansing Wound Cleanser Soap and Water Soap and Water -Foul Odor after Cleansing No No No -Anesthetic Used 4% Lidocaine 4% Lidocaine 4% Lidocaine Solution,5% Solution Solution Lidocaine Gel Lower Limb Edema Present Yes Left Calf (cm) 44.5 43.5 Left Ankle (cm) 31.7 33 - Nurse 2 - General Ulcer CM Notes Start: 08/12/23 09:40 Freq: Status: Active Protocol: Activity Type Activity Date Activity User E-sign Co-sign Detail Recorded Client Recorded Date Recorded By Document 08/12/23 10:29 Desktop 08/12/23 10:41 08/12/23 10:29 Wound Center Nurse 2 -Time 10:29 -Correct Patient Yes -Correct Side, Site, Position Yes -Correct Procedure Yes -Procedure Performed Yes -Type of Procedure Debridement -Clinical Debridement Subcutaneous -Tissue Removed Subcutaneous -Post Debridement (cm) - Length 10.0 -Post Debridement (cm) - Width 20.0 -Post Debridement (cm) - Depth 0.2 -Total Square (Post) (cm) 200.00 -Area of Debridement (cm) - Length 10.0 -Area of Debridement (cm) - Width 20.0 -Total Square (Area) (cm) 200.00 -Tunneling No -Undermining/Tunneling No -Circular Undermining No -Wound/Ulcer Outcome Not Healed -Ulcer Cleansing Rinsed/ Irrigated with Saline -Foul Odor after Cleansing No -Bioengineered Tissue No -Bleeding Controlled with Pressure -Treatment Response Procedure Tolerated Well -Debridement - Subq, 1st 20sq cm Yes -Debridement, SubQ, ea addt'l 20sq cm 9 or part thereof Pain Scale: 0-10 Numeric Is Patient Pain Free? Yes - Nurse 3 - General Ulcer D/C NN Start: 08/12/23 09:40 Freq: Status: Active Protocol: Activity Type Activity Date Activity User E-sign Co-sign Detail Recorded Client Recorded Date Recorded By Document 08/12/23 10:54 RB Desktop 08/12/23 10:55 RB Document 08/18/23 11:33 KW Desktop 08/18/23 11:34 KW Document 08/25/23 12:39 KW Desktop 08/25/23 12:40 KW 08/12/23 08/18/23 08/25/23 10:54 11:33 12:39 Wound Care Center Nurse 3 #18 Left medial LE cluster -Ulcer Cleansing Rinsed/ Rinsed/ Irrigated with Irrigated with Saline Saline -Primary Dressing Applied Optilok 8x12 Optilok 8x12 Optilok 8x12 -Other Dressing dakins moistened gauze -Primary Dressing Covered/Secured with Dry Gauze & Dry Gauze & Dry Gauze & Roll Gauze, Roll Gauze, Roll Gauze, Secured with Secured with Secured with Tape Tape Tape -Optilok 8x12 1 1 1 Right -Tubular Bandage Single Layer -Size of Tubigrip Used Size D -Size D ($) 1 Left -Tubular Bandage Single Layer Single Layer Single Layer -Size of Tubigrip Used Size D Size E Size D -Size D ($) 1 1 -Size E ($) 1 Treatment Response Procedure Tolerated Well Pain Scale: 0-10 Numeric Is Patient Pain Free? Yes Yes Yes WC - Visit Discharge Discharge Condition Stable Stable Ambulatory Status Ambulatory, Ambulatory, Walker Walker Transportation Private Auto Private Auto Medication Reconcilliation completed & No No provided to patient/care provider Clinical Summary of Care Provided Yes Yes Assessment/Plan Assessment/Plan (1) Lymphedema: CODE(S): I89.0 - Lymphedema, not elsewhere classified (2) Hypertension: CODE(S): I10 - Essential (primary) hypertension QUALIFIERS: Hypertension type: primary hypertension Qualified Code(s): I10 - Essential (primary) hypertension (3) Hyperlipidemia: CODE(S): E78.5 - Hyperlipidemia, unspecified (4) History of DVT (deep vein thrombosis): CODE(S): Z86.718 - Personal history of other venous thrombosis and embolism (5) Venous insufficiency (chronic) (peripheral): CODE(S): I87.2 - Venous insufficiency (chronic) (peripheral) (6) Venous ulcer of left lower extremity with varicose veins: CODE(S): I83.029 - Varicose veins of left lower extremity with ulcer of unspecified site (7) Edema: CODE(S): R60.9 - Edema, unspecified QUALIFIERS: Edema type: unspecified Qualified Code(s): R60.9 - Edema, unspecified PLAN: Plan Patient seen and evaluated Patient is seen in on behalf of Dr. Garcia for surgical debridement of the left lower extremity secondary to chronic nonhealing ulceration. I have reviewed patient's records of this ulceration extending back to November 2022. Patient has been seen by Dr. Carranza, Dr. Collado, and myself during hospital admission prior to his discharge on 12/09/2022. Patient is noted to be hypersensitive to pain and at that time did not tolerate dressing changes well with mechanical debridement via wet to dry. Patient's ulcerations were improving with elevation and compression therapy however following discharge back to facility does appear edema has returned with significant worsening of these ulcerative sites. Patient has been following with Dr. Garcia in the wound care center for weekly serial debridement. She states little improvement in ulcerative sites post Misonix ultrasonic debrider treatments. I have discussed with patient the need for an extensive sharp debridement followed by compressive therapy. Discussed with patient his hypersensitivity hedoes still need compression to the lower extremity or ulceration will not heal. He voices understanding of our discussion. Large left lower extremity circumferential ulceration with fibrotic tissue to the wound bed secondary to chronic venous insufficiency complicated by lymphedema. Wound measures 10 cm x 22 cm x 0.3 cm. No signs of infection. A sharp excisional debridement as noted in the clinical panel above was performed today under local anesthetic block of the left lower extremity. Extensive sharptissue debridement was performed to a healthy bleeding granular layer removing all necrotic tissue, thick fibrous tissue, biofilm, slough. #7 curette utilizedto perform the debridement. Following debridement a healthy, bleeding, viable tissue layer of granulation tissue remained. Dressing: Dakin's wet to dry dressing was applied to all ulcerative sites and covered with super absorb. Compression dressing applied today. I again discussed the need for adequate compression to be applied to promote healing of the ulceration. Offloading: I continue to recommend avoiding of pressure to the ulcerative site and to ensure legs do not rest against a recliner and legs are elevated to aid in edema control. Discussed avoiding prolonged standing or dangling of lower extremities over edge of chair or bed. Again stressed elevation of lower extremities at times of rest. I did discuss with him his proper diet to avoid excess sodium, to increase his protein intake, and to avoid high carbohydrate and sugary foods. Cultures: Previous cultures did demonstrate Pseudomonas sensitive to levofloxacin. He did finish oral antibiotic, levofloxacin on 08/16/2023. I discussed signs and symptoms of infection. Discussed with the patient if he notices redness about the ulcerative site moving up the leg or spreading about the leg, any purulent drainage from wound sites, increasing foul odor from the wound site, or a if he experiences fever greater than 101 degree, nausea, vomiting, chills/rigors, these are signs of a progressing infection and he needs to report to the ED to receive IV antibiotics. He voices understanding of this. He will return in 1 week to the wound care center with Dr. Garcia for continued wound care and possible application of an advanced wound care product. 08/25/23 1326 <Electronically signed by Froylan Sheppard DPM> Cosigner Signature (if applicable): CC: ~ Signed [facility] Work Phone: 1(256) 331-287911-09-2023 Progress note Author Froylan Sheppard [facility] August 18, 2023 8:31pm Note Date/Time August 18, 2023 8 :27pm [facility] [address] [place] [id number] Progress Note - Wound Care 08/18/232002 MR#: [id number] Acct: [id number] Name: ESTEBAN URBINA Rep #:[id number] : 1955 68 From: Froylan wilson DPM PCP: Dr. Patricia Garcia, DO Status:[facility] Location: History of Present Illness Date of Service: 08/18/23 Chief Complaint: venous ulcers of left lower extremity History of Wound: Mauricio is a 68 yo gentleman who is here today for evaluation of ulcers to to his bilateral lower legs. [facility]. The left LE ulcer started after he developed increased swelling and blisters of left leg in October and the right leg started sometime at the end of October. He was seen at PCP's office a culture was taken and it was resistant to several antibiotics. He was treated initially with Levaquin but had myalgias and then was treated with doxycycline which he finished 2 days ago. He denies improvementand is having swelling to his left calf and thigh. He has been having swelling to both lower extremities for many years and it has worsened over the last few months. He has not been compliant with compression. He has had increased pain especially in the left leg. He has clear yellow drainage and redness without odor or warmth. He is anti-coagulated on coumadin. He has been washing with Dial soap and witch ifrah. He had been using Collagen at times and using Calcium Alginate and covering with ABD pads during October. He was treated with 3M compression and Aquacel Ag. He was referred to the wound center for ongoing treatment. His ulcers have moderate to heavy drainage. He was recently hospitalized for cellulitis and edema for the last 10 days. He was in the hospital from 11/30/22 until 12/09/22 for treatment of cellulitis and edema. He underwent treatment with Vancomycin and IV lasix and compression. Discharged on 12/09/22. He returned to his assisted living apartment on Tuesday12/21/22. Subjective Subjective Patient is a 68-year-old male with longstanding history of chronic venous ulceration to the left lower extremity. Continues to follow the wound care center with Dr. Garcia. Patient states that he has history of bilateral DVT and chronic venous insufficiency, in addition to lymphedema. He states he does use his lymphedema pumps but continues to have pain with use of these pumps. Patient states he is hypersensitive to pain and does not routinely tolerate debridement. He denies constitutional symptoms. Denies further complaints. Objective Data Objective Data Vital Signs: Vital Signs Temp Pulse Resp BP O2 Del Method 97.2 F L 73 22 H 132/76 H Room Air 08/18/23 09:49 08/18/23 09:49 08/18/23 09:49 08/18/23 09:49 08/12/23 09:40 Oxygen Delivery Method Room Air Physical Exam Const alert, oriented x3, no apparent distress and well nourished General Appearance: cooperative Nutritional Appearance: morbidly obese HEENT normocephalic Eyes General Eye: normal appearance of both eyes Neck General: normal visual inspection Lymph Lymphatic: no lymphadenopathy noted and lymphedema Resp normal respiratory effort Cardio regular rate and regular rhythm Extremity normal capillary refill Extremity Narrative: Vascular: DP and PT pulses palpable bilateral with capillary fill time less than4 seconds to the lesser digits. Dermatological: Stemmer sign positive second digit left foot. Skin changes consistent with lymphedema. There is a large circumferential ulceration noted to the left lower extremity starting anteriorly wrapping medially, posteriorly, and to the lateral leg. There is a healthy appearing skin island bridging at the anterior lateral leg. Wound bed demonstrates thin layer of fibrotic tissue with wound edges demonstrating slight rubor secondary to chronic venous insufficiency. No signs of infection. Musculoskeletal: Muscle strength 5 of 5 age-appropriate. Does have pain to palpation to the left lower extremity about ulcerative site. Skin no jaundice Neuro moves all extremities Debridement Note Debridement Note No debridement was completed: No debridement was completed today Post-Debridement Measurements and Additional Note: Post-Debridement Measurements/Treatment - Nurse 1 - General Ulcer Assessment Start: 08/12/23 09:40 Freq: Status: Active Protocol: DEBBIE.ADITU SAS Activity Type Activity Date Activity User E-sign Co-sign Detail Recorded Client Recorded Date Recorded By Document 08/12/23 09:40 [facility] Desktop 08/12/23 09:46 BM Document 08/18/23 09:49 DL Desktop 08/18/23 10:02 DL 08/12/23 08/18/23 09:40 09:49 - Today's Visit Information Type of service Follow-up Visit Follow-up Visit (Physician/APPLICATIONS SPECIALIST (Physician/APPLICATIONS SPECIALIST ) ) Arrival Mode Ambulatory, Ambulatory, Walker Walker Transfer Assistance None None Patient Identification Verified (Name & Yes Yes ) Patient Requires Transmission-Based No No Precautions Vital Signs Temperature (97.8 F-99.1 F) 96.4 F L 97.2 F L Temperature Source Temporal Temporal Pulse Rate (60-100) 75 73 Pulse Location Monitor Monitor Respiratory Rate (12-18) 18 22 H Respiratory rate source Observation Observation Oxygen Delivery Method Room Air Blood Pressure (90/60-120/80) 144/84 H 132/76 H Blood Pressure Mean (mm Hg) 104 94 Source Monitor Position Sitting Blood Pressure Location Right Arm History Since Last Visit- (Skip if this is Patient's initial visit) Have you changed medications since your No No last visit? Any new allergies or adverse reactions No No Had a fall/change in ADL's that may No No increase risk of falls Signs or symptoms of abuse and/or No No neglect since last visit Have you been in the hospital since your No No last visit? Has dressing in place as prescribed Yes Yes Has compression in place as prescribed Yes Yes Has offloadiing in place as prescribed N/A N/A Experienced any changes in pain level or No No management Left Footwear Custom Shoe Right Footwear Custom Shoe Pain Scale: 0-10 Numeric Is Patient Pain Free? Yes Yes WC - Nurse 1 - General Ulcer Measurement Start: 08/12/23 09:40 Freq: Status: Active Protocol: Activity Type Activity Date Activity User E-sign Co-sign Detail Recorded Client Recorded Date Recorded By Document 08/12/23 09:40 BMF Desktop 08/12/23 09:46 BMF Document 08/18/23 09:49 DL Desktop 08/18/23 10:02 DL 08/12/23 08/18/23 09:40 09:49 Wound Center Nurse 1 #18 Left medial LE cluster -Combined with other wound No -Current Size (cm) - Length 10.3 11 -Current Size (cm) - Width 22.3 22.2 -Current Size (cm) - Depth 0.3 0.3 -Total Square Cm 229.69 244.2 -Tunneling No -Undermining/Tunneling No -Circular Undermining No -Exudate Amt Large Medium -Exudate Type Serosanguineous Serosanguineous -Wound Margin Distinct, Distinct, Outline Outline Attached Attached -Granulation Amt Medium (34-66%) Medium (34-66%) -Granulation Quality Lingle Red -Slough/Fibrin Yes -Necrosis Amt Medium (34-66%) Medium (34-66%) -Necrotic Tissue Type Adherent Slough Adherent Slough -Structure Exposed N/A N/A -Texture (Marie-wound Skin Appearance) Assessed Localized Edema ,Scarring -Moisture (Marie-wound Skin Appearance) Assessed No Abnormality -Color (Marie-wound Skin Appearance) Assessed Erythema, Hemosiderin Staining -Temperature (Marie-wound Skin No Abnormality No Abnormality Appearance) (Pt Warm) (Pt Warm) -Tenderness on Palpation (Marie-wound No No Skin Appearance) -Ulcer Cleansing Wound Cleanser Soap and Water -Foul Odor after Cleansing No No -Anesthetic Used 4% Lidocaine 4% Lidocaine Solution,5% Solution Lidocaine Gel Lower Limb Edema Present Yes Left Calf (cm) 44.5 43.5 Left Ankle (cm) 31.7 33 DEBBIE - Nurse 2 - General Ulcer CM Notes Start: 08/12/23 09:40 Freq: Status: Active Protocol: Activity Type Activity Date Activity User E-sign Co-sign Detail Recorded Client Recorded Date Recorded By Document 08/12/23 10:29 Desktop 08/12/23 10:41 08/12/23 10:29 Wound Center Nurse 2 #18 Left medial LE cluster -Time 10:29 -Correct Patient Yes -Correct Side, Site, Position Yes -Correct Procedure Yes -Procedure Performed Yes -Type of Procedure Debridement -Clinical Debridement Subcutaneous -Tissue Removed Subcutaneous -Post Debridement (cm) - Length 10.0 -Post Debridement (cm) - Width 20.0 -Post Debridement (cm) - Depth 0.2 -Total Square (Post) (cm) 200.00 -Area of Debridement (cm) - Length 10.0 -Area of Debridement (cm) - Width 20.0 -Total Square (Area) (cm) 200.00 -Tunneling No -Undermining/Tunneling No -Circular Undermining No -Wound/Ulcer Outcome Not Healed -Ulcer Cleansing Rinsed/ Irrigated with Saline -Foul Odor after Cleansing No -Bioengineered Tissue No -Bleeding Controlled with Pressure -Treatment Response Procedure Tolerated Well -Debridement - Subq, 1st 20sq cm Yes -Debridement, SubQ, ea addt'l 20sq cm 9 or part thereof Pain Scale: 0-10 Numeric Is Patient Pain Free? Yes WC - Nurse 3 - General Ulcer D/C NN Start: 08/12/23 09:40 Freq: Status: Active Protocol: Activity Type Activity Date Activity User E-sign Co-sign Detail Recorded Client Recorded Date Recorded By Document 08/12/23 10:54 RB Desktop 08/12/23 10:55 RB Document 08/18/23 11:33 Desktop 08/18/23 11:34 08/12/23 08/18/23 10:54 11:33 Wound Care Center Nurse 3 #18 Left medial LE cluster -Ulcer Cleansing Rinsed/ Rinsed/ Irrigated with Irrigated with Saline Saline -Primary Dressing Applied Optilok 8x12 Optilok 8x12 -Other Dressing dakins moistened gauze -Primary Dressing Covered/Secured with Dry Gauze & Dry Gauze & Roll Gauze, Roll Gauze, Secured with Secured with Tape Tape -Optilok 8x12 1 1 Right -Tubular Bandage Single Layer -Size of Tubigrip Used Size D -Size D ($) 1 Left -Tubular Bandage Single Layer Single Layer -Size of Tubigrip Used Size D Size E -Size D ($) 1 -Size E ($) 1 Treatment Response Procedure Tolerated Well Pain Scale: 0-10 Numeric Is Patient Pain Free? Yes Yes WC - Visit Discharge Discharge Condition Stable Ambulatory Status Ambulatory, Walker Transportation Private Auto Medication Reconcilliation completed & No provided to patient/care provider Clinical Summary of Care Provided Yes Assessment/Plan Assessment/Plan (1) Lymphedema: CODE(S): I89.0 - Lymphedema, not elsewhere classified (2) Hypertension: CODE(S): I10 - Essential (primary) hypertension QUALIFIERS: Hypertension type: primary hypertension Qualified Code(s): I10 - Essential (primary) hypertension (3) Hyperlipidemia: CODE(S): E78.5 - Hyperlipidemia, unspecified (4) History of DVT (deep vein thrombosis): CODE(S): Z86.718 - Personal history of other venous thrombosis and embolism (5) Venous insufficiency (chronic) (peripheral): CODE(S): I87.2 - Venous insufficiency (chronic) (peripheral) (6) Venous ulcer of left lower extremity with varicose veins: CODE(S): I83.029 - Varicose veins of left lower extremity with ulcer of unspecified site (7) Edema: CODE(S): R60.9 - Edema, unspecified QUALIFIERS: Edema type: unspecified Qualified Code(s): R60.9 - Edema, unspecified PLAN: Plan Patient seen and evaluated Patient is seen in consultation on behalf of Dr. Garcia for possible surgical debridement of the left lower extremity secondary to chronic nonhealing ulceration. I have reviewed patient's records of this ulceration extending back to November 2022. Patient has been seen by Dr. Carranza, Dr. Collado, and myself during hospital admission prior to his discharge on 12/09/2022. Patient is noted to be hypersensitive to pain and at that time did not tolerate dressing changes well with mechanical debridement via wet to dry. Patient's ulcerations were improving with elevation and compression therapy however following discharge back to facility does appear edema has returned with significant worsening of these ulcerative sites. Patient has been following with Dr. Garcia in the wound care center for weekly serial debridement. She states little improvement in ulcerative sites post Misonix ultrasonic debrider treatments. Large left lower extremity circumferential ulceration with fibrotic tissue to the wound bed secondary to chronic venous insufficiency complicated by lymphedema. Wound measures 12 cm x 22 cm x 0.2 cm. No signs of infection. No debridement was performed today. I discussed with patient the need for an extensive sharp debridement followed bycompressive therapy. Discussed with patient his hypersensitivity he does still need compression to the lower extremity or ulceration will not heal. I discussed returning for debridement in which he will undergo a proximal lower extremity local anesthetic block followed by extensive sharp debridement of all fibrotic tissue to the level of healthy bleeding tissue. He voices understanding of our discussion. Dressing: Dakin's wet to dry dressing was applied to all ulcerative sites and covered with super absorb. Compression via Kishore was applied today at patient request due to inability to tolerate further compression. I again discussed theneed for adequate compression to be applied to promote healing of the ulceration. Offloading: I continue to recommend avoiding of pressure to the ulcerative site and to ensure legs do not rest against a recliner and legs are elevated to aid in edema control. Discussed avoiding prolonged standing or dangling of lower extremities over edge of chair or bed. Again stressed elevation of lower extremities at times of rest. I did discuss with him his proper diet to avoid excess sodium, to increase his protein intake, and to avoid high carbohydrate and sugary foods. Cultures: Previous cultures did demonstrate Pseudomonas sensitive to levofloxacin. He did finish oral antibiotic, levofloxacin on 08/16/2023. I discussed signs and symptoms of infection. Discussed with the patient if he notices redness about the ulcerative site moving up the leg or spreading about the leg, any purulent drainage from wound sites, increasing foul odor from the wound site, or a if he experiences fever greater than 101 degree, nausea, vomiting, chills/rigors, these are signs of a progressing infection and he needsto report to the ED to receive IV antibiotics. He voices understanding of this. He will return in 1 week to the wound care center with myself to perform extensive debridement of the left lower extremity followed by compression wrap therapy. He will then return to Dr. Garcia in wound care center the following week. 08/18/232030 <Electronically signed by Froylan Sheppard DPM> Cosigner Signature (if applicable): CC: ~ Signed [facility] Work Phone: [phone]) 686-956511-03-2023 Progress note Author Patricia Malys [facility] August 12, 2023 2:29pm Note Date/Time August 12, 2023 2 :30pm [facility] [id number] [place] [address] Progress Note - Wound Care 08/12/23 1426 MR#: [id number] Acct: [id number] Name: ESTEBAN URBINA Rep #:[id number] : 1955 68 From: Patricia Garcia DO PCP: Dr. Patricia Garcia, DO Status:REG RCR Location: History of Present Illness Date of Service: 08/12/23 Chief Complaint: venous ulcers of left lower extremity History of Wound: Mauricio is a 68 yo gentleman who is here today for evaluation of ulcers to to his bilateral lower legs. [facility]. The left LE ulcer started after he developed increased swelling and blisters of left leg in October and the right leg started sometime at the end of October. He was seen at PCP's office a culture was taken and it was resistant to several antibiotics. He was treated initially with Levaquin but had myalgias and then was treated with doxycycline which he finished 2 days ago. He denies improvementand is having swelling to his left calf and thigh. He has been having swelling to both lower extremities for many years and it has worsened over the last few months. He has not been compliant with compression. He has had increased pain especially in the left leg. He has clear yellow drainage and redness without odor or warmth. He is anti-coagulated on coumadin. He has been washing with Dial soap and witch ifrah. He had been using Collagen at times and using Calcium Alginate and covering with ABD pads during October. He was treated with 3M compression and Aquacel Ag. He was referred to the wound center for ongoing treatment. His ulcers have moderate to heavy drainage. He was recently hospitalized for cellulitis and edema for the last 10 days. He was in the hospital from 11/30/22 until 12/09/22 for treatment of cellulitis and edema. He underwent treatment with Vancomycin and IV lasix and compression. Discharged on 12/09/22. He returned to his assisted living apartment on Tuesday12/21/22. Subjective Subjective Ulcers are relatively unchanged but seem to be decreasing in size through islands between ulcers. Edema is somewhat better today. He has been using lymphedema pumps. He has had more pain. Denies fever, chills, or increased drainage. Wound culture was positive for Pseudomonas and he has been tolerating Dakins and Levaquin. Objective Data Objective Data Vital Signs: Vital Signs Temp Pulse Resp BP O2 Del Method 96.4 F L 75 18 144/84 H Room Air 08/12/23 09:40 08/12/23 09:40 08/12/23 09:40 08/12/23 09:40 08/12/23 09:40 Oxygen Delivery Method Room Air Physical Exam Const alert, oriented x3 and no apparent distress General Appearance: cooperative and comfortable HEENT normocephalic and head/scalp atraumatic Lymph Lymphatic: lymphedema moderate Resp normal respiratory effort Effort and Inspection: able to speak in complete sentences Cardio regular rate and regular rhythm Extremity General Extremity: edema bilateral lower extremity Details: severe Skin Wounds: wounds noted Wound Narrative: as in clinical panel Psych mental status grossly normal, thought process normal, cooperative and affect normal Debridement Note Debridement Note Wound debrided: left medial LE cluster Laterality: Left Type of Debridement: Excisional debridement Anesthesia Used: 4% Lidocaine Solution and 5% Lidocaine Gel Depth: Down to and including healthy tissue and in the subcutaneous layer Percentage of wound debrided: 100 Instrument Used: - (misonix ultrasonic debridement) Tissue Removed: Yellow slough, devitalized tissue Severity: Fat Layer Exposed Amount of bleeding with debridement: Mild Bleeding Controlled with: Compression and gauze Patient tolerated procedure: Patient tolerated procedure well Post-Debridement Measurements and Additional Note: Post-Debridement Measurements/Treatment - Nurse 1 - General Ulcer Assessment Start: 08/12/23 09:40 Freq: Status: Active Protocol: DEBBIE.LOWEXT Activity Type Activity Date Activity User E-sign Co-sign Detail Recorded Client Recorded Date Recorded By Document 08/12/23 09:40 [facility] Desktop 08/12/23 09:46 [facility] 08/12/23 09:40 - Today's Visit Information Type of service Follow-up Visit (Physician/APPLICATIONS SPECIALIST ) Arrival Mode Ambulatory, Walker Transfer Assistance None Patient Identification Verified (Name & Yes ) Patient Requires Transmission-Based No Precautions Vital Signs Temperature (97.8 F-99.1 F) 96.4 F L Temperature Source Temporal Pulse Rate (60-100) 75 Pulse Location Monitor Respiratory Rate (12-18) 18 Respiratory rate source Observation Oxygen Delivery Method Room Air Blood Pressure (90/60-120/80) 144/84 H Blood Pressure Mean (mm Hg) 104 Source Monitor Position Sitting Blood Pressure Location Right Arm History Since Last Visit- (Skip if this is Patient's initial visit) Have you changed medications since your No last visit? Any new allergies or adverse reactions No Had a fall/change in ADL's that may No increase risk of falls Signs or symptoms of abuse and/or No neglect since last visit Have you been in the hospital since your No last visit? Has dressing in place as prescribed Yes Has compression in place as prescribed Yes Has offloadiing in place as prescribed N/A Experienced any changes in pain level or No management Left Footwear Custom Shoe Right Footwear Custom Shoe Pain Scale: 0-10 Numeric Is Patient Pain Free? Yes WC - Nurse 1 - General Ulcer Measurement Start: 08/12/23 09:40 Freq: Status: Active Protocol: Activity Type Activity Date Activity User E-sign Co-sign Detail Recorded Client Recorded Date Recorded By Document 08/12/23 09:40 [facility] Desktop 08/12/23 09:46 [facility] 08/12/23 09:40 Wound Center Nurse 1 #18 Left medial LE cluster -Combined with other wound No -Current Size (cm) - Length 10.3 -Current Size (cm) - Width 22.3 -Current Size (cm) - Depth 0.3 -Total Square Cm 229.69 -Tunneling No -Undermining/Tunneling No -Circular Undermining No -Exudate Amt Large -Exudate Type Serosanguineous -Wound Margin Distinct, Outline Attached -Granulation Amt Medium (34-66%) -Granulation Quality Lingle -Slough/Fibrin Yes -Necrosis Amt Medium (34-66%) -Necrotic Tissue Type Adherent Slough -Structure Exposed N/A -Texture (Marie-wound Skin Appearance) Assessed -Moisture (Marie-wound Skin Appearance) Assessed -Color (Marie-wound Skin Appearance) Assessed -Temperature (Marie-wound Skin No Abnormality Appearance) (Pt Warm) -Tenderness on Palpation (Marie-wound No Skin Appearance) -Ulcer Cleansing Wound Cleanser -Foul Odor after Cleansing No -Anesthetic Used 4% Lidocaine Solution,5% Lidocaine Gel Lower Limb Edema Present Yes Left Calf (cm) 44.5 Left Ankle (cm) 31.7 - Nurse 2 - General Ulcer CM Notes Start: 08/12/23 09:40 Freq: Status: Active Protocol: Activity Type Activity Date Activity User E-sign Co-sign Detail Recorded Client Recorded Date Recorded By Document 08/12/23 10:29 GM Desktop 08/12/23 10:41 08/12/23 10:29 Wound Center Nurse 2 #18 Left medial LE cluster -Time 10:29 -Correct Patient Yes -Correct Side, Site, Position Yes -Correct Procedure Yes -Procedure Performed Yes -Type of Procedure Debridement -Clinical Debridement Subcutaneous -Tissue Removed Subcutaneous -Post Debridement (cm) - Length 10.0 -Post Debridement (cm) - Width 20.0 -Post Debridement (cm) - Depth 0.2 -Total Square (Post) (cm) 200.00 -Area of Debridement (cm) - Length 10.0 -Area of Debridement (cm) - Width 20.0 -Total Square (Area) (cm) 200.00 -Tunneling No -Undermining/Tunneling No -Circular Undermining No -Wound/Ulcer Outcome Not Healed -Ulcer Cleansing Rinsed/ Irrigated with Saline -Foul Odor after Cleansing No -Bioengineered Tissue No -Bleeding Controlled with Pressure -Treatment Response Procedure Tolerated Well -Debridement - Subq, 1st 20sq cm Yes -Debridement, SubQ, ea addt'l 20sq cm 9 or part thereof Pain Scale: 0-10 Numeric Is Patient Pain Free? Yes - Nurse 3 - General Ulcer D/C NN Start: 08/12/23 09:40 Freq: Status: Active Protocol: Activity Type Activity Date Activity User E-sign Co-sign Detail Recorded Client Recorded Date Recorded By Document 08/12/23 10:54 RB Desktop 08/12/23 10:55 08/12/23 10:54 Wound Care Center Nurse 3 #18 Left medial LE cluster -Ulcer Cleansing Rinsed/ Irrigated with Saline -Primary Dressing Applied Optilok 8x12 -Other Dressing dakins moistened gauze -Primary Dressing Covered/Secured with Dry Gauze & Roll Gauze, Secured with Tape -Optilok 8x12 1 Right -Tubular Bandage Single Layer -Size of Tubigrip Used Size D -Size D ($) 1 Left -Tubular Bandage Single Layer -Size of Tubigrip Used Size D -Size D ($) 1 Treatment Response Procedure Tolerated Well Pain Scale: 0-10 Numeric Is Patient Pain Free? Yes WC - Visit Discharge Discharge Condition Stable Ambulatory Status Ambulatory, Walker Transportation Private Auto Medication Reconcilliation completed & No provided to patient/care provider Clinical Summary of Care Provided Yes Assessment/Plan Assessment/Plan (1) Ulcer of left lower extremity with fat layer exposed: CODE(S): L97.922 - Non-pressure chronic ulcer of unspecified part of left lower leg with fat layer exposed (2) Venous insufficiency: CODE(S): I87.2 - Venous insufficiency (chronic) (peripheral) (3) Edema: CODE(S): R60.9 - Edema, unspecified QUALIFIERS: Edema type: unspecified Qualified Code(s): R60.9 - Edema, unspecified (4) History of CVA (cerebrovascular accident): CODE(S): Z86.73 - Personal history of transient ischemic attack (TIA), andcerebral infarction without residual deficits (5) 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 At home wound-care instructions: Will continue to apply Dakins wet to dry gauze to ulcers and will cover with super absorber and KISHORE bandage changed daily for heavy drainage. Complete course of Levaquin. Off-loading: The patient was instructed to avoid pressure and friction on the affected areas. Reposition every 2 hours at minimum. Avoid prolonged standing and/or dangling of legs. When seated, feet should be elevated at chest level. Frequent ambulation is encouraged. Encouraged lymphedema pump use. Diet: Patient encouraged to increase protein intake while taking caution to avoid high carbohydrate and/or sugar intake. Labs/cultures/imaging: Wound culture showed 1+ Pseudomonas that is sensitive to Levofloxacin and will complete treatment on 08/16/23. Follow-up: Return in 1 week for wound care follow up and have secondary dressingchanged by home health Tuesday and Tuesday. Return sooner or report to the emergency room should symptoms worsen, or new symptoms arise. Note: [employer] speech recognition hair tinter software was used to create portions of this document. Sound-alike and misspelled words, as well as other hair tinter errors may be contained in the documentation. 08/12/23 1429 <Electronically signed by Patricia Garcia DO> Cosigner Signature (if applicable): CC: ~ Signed [facility] Work Phone: [phone] 714-122910-27-2023 Progress note Author Patricia Garcia [facility] August 05, 2023 2:51pm Note Date/Time August 05, 2023 2 :02pm [facility] [address] [place] [address] Progress Note - Wound Care 08/05/23 1401 MR#: [id number] Acct: [id number] Name: ESTEBAN URBINA Rep #:[id number] : 1955 68 From: Patricia Garcia DO PCP: Dr. Patricia Garcia DO Status:REG RCR Location: History of Present Illness Date of Service: 08/05/23 Chief Complaint: venous ulcers of left lower extremity History of Wound: Mauricio is a 67 yo gentleman who is here today for evaluation of ulcers to to his bilateral lower legs. [facility]. The left LE ulcer started after he developed increased swelling and blisters of left leg in October and the right leg started sometime at the end of October. He was seen at PCP's office a culture was taken and it was resistant to several antibiotics. He was treated initially with Levaquin but had myalgias and then was treated with doxycycline which he finished 2 days ago. He denies improvementand is having swelling to his left calf and thigh. He has been having swelling to both lower extremities for many years and it has worsened over the last few months. He has not been compliant with compression. He has had increased pain especially in the left leg. He has clear yellow drainage and redness without odor or warmth. He is anti-coagulated on coumadin. He has been washing with Dial soap and witch ifrah. He had been using Collagen at times and using Calcium Alginate and covering with ABD pads during October. He was treated with 3M compression and Aquacel Ag. He was referred to the wound center for ongoing treatment. His ulcers have moderate to heavy drainage. He was recently hospitalized for cellulitis and edema for the last 10 days. He was in the hospital from 11/30/22 until 12/09/22 for treatment of cellulitis and edema. He underwent treatment with Vancomycin and IV lasix and compression. Discharged on 12/09/22 and is currently in the Skilled [facility] of [facility]. He returned to his assisted living apartment on Tuesday12/21/22. Subjective Subjective Ulcers are relatively unchanged but seem to be decreasing in size through islands between ulcers. Edema is still fairly uncontrolled today. He did use lymphedema pumps. He has had more pain. Denies fever, chills, or increased drainage. Wound culture was positive for Pseudomonas and he has been tolerating Dakins. Objective Data Objective Data Vital Signs: Vital Signs Temp Pulse Resp BP O2 Del Method 95.5 F L 75 18 101/64 Room Air 08/05/23 09:39 08/05/23 09:39 08/05/23 09:39 08/05/23 09:39 07/29/23 11:12 Oxygen Delivery Method Room Air Physical Exam Const alert, oriented x3 and no apparent distress General Appearance: cooperative and comfortable HEENT normocephalic and head/scalp atraumatic Lymph Lymphatic: lymphedema moderate Resp normal respiratory effort Effort and Inspection: able to speak in complete sentences Cardio regular rate and regular rhythm Extremity General Extremity: edema bilateral lower extremity Details: severe Skin Wounds: wounds noted Wound Narrative: as in clinical panel Psych mental status grossly normal, thought process normal, cooperative and affect normal Debridement Note Debridement Note Wound debrided: left medial LE cluster Laterality: Left Type of Debridement: Excisional debridement Anesthesia Used: 4% Lidocaine Solution and 5% Lidocaine Gel Depth: Down to and including healthy tissue and in the subcutaneous layer Percentage of wound debrided: 100 Instrument Used: - (misonix ultrasonic debridement) Tissue Removed: Yellow slough, devitalized tissue Severity: Fat Layer Exposed Amount of bleeding with debridement: Mild Bleeding Controlled with: Compression and gauze Patient tolerated procedure: Patient tolerated procedure well Post-Debridement Measurements and Additional Note: Post-Debridement Measurements/Treatment DEBBIE - Nurse 1 - General Ulcer Assessment Start: 07/15/23 10:10 Freq: Status: Active Protocol: ONDINA Activity Type Activity Date Activity User E-sign Co-sign Detail Recorded Client Recorded Date Recorded By Document 07/15/23 10:10 MW Desktop 07/15/23 10:12 MW Document 07/22/23 11:19 MT Desktop 07/22/23 11:35 MT Document 07/29/23 11:12 MW Desktop 07/29/23 11:16 MW Document 08/05/23 09:39 RB Desktop 08/05/23 09:51 RB 07/15/23 07/22/23 07/29/23 10:10 11:19 11:12 WC - Today's Visit Information Type of service Follow-up Visit Follow-up Visit Follow-up Visit (Physician/APPLICATIONS SPECIALIST (Physician/APPLICATIONS SPECIALIST (Physician/APPLICATIONS SPECIALIST ) ) ) Arrival Mode Ambulatory Ambulatory, Ambulatory Walker Transfer Assistance None None Accompanied by self self self Patient Identification Verified (Name & Yes Yes Yes ) Patient Requires Transmission-Based No No Precautions Safety Precautions Fall Prevention NA Vital Signs Temperature (97.8 F-99.1 F) 96.4 F L 97.4 F L 97.2 F L Temperature Source Temporal Temporal Temporal Pulse Rate (60-100) 68 66 70 Pulse Location Monitor Monitor Monitor Respiratory Rate (12-18) 16 18 18 Respiratory rate source Observation Observation Observation Oxygen Delivery Method Room Air Room Air Room Air Blood Pressure (90/60-120/80) 113/65 135/63 H 107/64 Blood Pressure Mean (mm Hg) 81 87 78 Source Monitor Monitor Monitor Position Sitting Sitting Sitting Blood Pressure Location Left Arm Right Arm Right Arm History Since Last Visit- (Skip if this is Patient's initial visit) Have you changed medications since your No No last visit? Any new allergies or adverse reactions No No Had a fall/change in ADL's that may No No increase risk of falls Signs or symptoms of abuse and/or No No neglect since last visit Have you been in the hospital since your No No No last visit? Has dressing in place as prescribed Yes Yes Yes Has compression in place as prescribed Yes Yes Yes Has offloadiing in place as prescribed N/A N/A N/A Experienced any changes in pain level or No No No management Left Footwear Regular Shoe Regular Shoe Regular Shoe Right Footwear Regular Shoe Regular Shoe Regular Shoe Pain Scale: 0-10 Numeric Is Patient Pain Free? Yes Yes No Left medial LE -Description Burning -Intensity 6 -Duration (hours) Acute -Pain Behavior No Change in Behavior -Pain Aggravating Factors Walking, Debridement -Alleviating Factors/Interventions None -Effectiveness of Alleviating Factor/ Moderately Intervention effective -Comments Takes pain medication when due Teaching: Wound Center Dressing Your Wound -Person Taught Patient -Teaching Method Discussion -Response to teaching Verbalize understanding 08/05/23 09:39 - Today's Visit Information Type of service Follow-up Visit (Physician/APPLICATIONS SPECIALIST ) Arrival Mode Ambulatory, Walker Transfer Assistance None Accompanied by Patient Identification Verified (Name & Yes ) Patient Requires Transmission-Based No Precautions Safety Precautions Vital Signs Temperature (97.8 F-99.1 F) 95.5 F L Temperature Source Temporal Pulse Rate (60-100) 75 Pulse Location Monitor Respiratory Rate (12-18) 18 Respiratory rate source Observation Oxygen Delivery Method Blood Pressure (90/60-120/80) 101/64 Blood Pressure Mean (mm Hg) 76 Source Monitor Position Semi-Fowlers Blood Pressure Location Left Arm History Since Last Visit- (Skip if this is Patient's initial visit) Have you changed medications since your No last visit? Any new allergies or adverse reactions No Had a fall/change in ADL's that may No increase risk of falls Signs or symptoms of abuse and/or No neglect since last visit Have you been in the hospital since your No last visit? Has dressing in place as prescribed Yes Has compression in place as prescribed Yes Has offloadiing in place as prescribed No Experienced any changes in pain level or No management Left Footwear Right Footwear Pain Scale: 0-10 Numeric Is Patient Pain Free? Yes Left medial LE -Description -Intensity -Duration (hours) -Pain Behavior -Pain Aggravating Factors -Alleviating Factors/Interventions -Effectiveness of Alleviating Factor/ Intervention -Comments Teaching: Wound Center Dressing Your Wound -Person Taught -Teaching Method -Response to teaching - Nurse 1 - General Ulcer Measurement Start: 07/15/23 10:10 Freq: Status: Active Protocol: Activity Type Activity Date Activity User E-sign Co-sign Detail Recorded Client Recorded Date Recorded By Document 07/15/23 10:10 MW Desktop 07/15/23 10:12 MW Document 07/22/23 11:19 MT Desktop 07/22/23 11:35 MT Edit Result 07/22/23 11:19 MT (1) Desktop 07/22/23 12:32 MT Document 07/29/23 11:12 MW Desktop 07/29/23 11:16 MW Document 08/05/23 09:39 RB Desktop 08/05/23 09:51 RB (1) Left Calf (cm) 46 => 45 07/15/23 07/22/23 07/29/23 10:10 11:19 11:12 Wound Center Nurse 1 #18 Left medial LE cluster -Combined with other wound No No -Current Size (cm) - Length 12.0 23 10.5 -Current Size (cm) - Width 19.0 10.5 18.0 -Current Size (cm) - Depth 0.3 0.1 0.3 -Total Square Cm 228.00 241.5 189.00 -Photo Taken No No -Epithelialization None Present None Present -Tunneling No No No -Undermining/Tunneling No No No -Circular Undermining No No No -Exudate Amt Large Medium Large -Exudate Type Serosanguineous Serous Serosanguineous -Wound Margin Distinct, Flat & Intact Distinct, Outline Outline Attached Attached -Granulation Amt Large (67-100%) Medium (34-66%) Large (67-100%) -Granulation Quality Lingle Pale,Lingle Lingle -Slough/Fibrin Yes Yes -Necrosis Amt Small (1-33%) Medium (34-66%) Small (1-33%) -Necrotic Tissue Type Adherent Slough Adherent Slough Adherent Slough -Structure Exposed N/A N/A -Texture (Marie-wound Skin Appearance) Assessed, Assessed, Assessed, Localized Edema Localized Edema Localized Edema ,Scarring ,Scarring -Moisture (Marie-wound Skin Appearance) Assessed, Assessed Assessed Maceration -Color (Marie-wound Skin Appearance) Assessed, Assessed, Assessed, Hemosiderin Erythema, Hemosiderin Staining Hemosiderin Staining Staining -Temperature (Marie-wound Skin No Abnormality No Abnormality No Abnormality Appearance) (Pt Warm) (Pt Warm) (Pt Warm) -Tenderness on Palpation (Marie-wound No No Yes Skin Appearance) -Ulcer Cleansing Soap and Water Soap and Water Soap and Water -Foul Odor after Cleansing No No No -Anesthetic Used 4% Lidocaine 5% Lidocaine 5% Lidocaine Solution,5% Gel Gel Lidocaine Gel Lower Limb Edema Present Yes Yes Left Calf (cm) 44.8 45 46.5 Left Ankle (cm) 31.0 32 32.5 08/05/23 09:39 Wound Center Nurse 1 #18 Left medial LE cluster -Combined with other wound No -Current Size (cm) - Length 11.7 -Current Size (cm) - Width 24 -Current Size (cm) - Depth 0.4 -Total Square Cm 280.8 -Photo Taken -Epithelialization -Tunneling No -Undermining/Tunneling No -Circular Undermining No -Exudate Amt Large -Exudate Type Serosanguineous -Wound Margin Distinct, Outline Attached -Granulation Amt Medium (34-66%) -Granulation Quality Lingle -Slough/Fibrin Yes -Necrosis Amt Medium (34-66%) -Necrotic Tissue Type Adherent Slough -Structure Exposed N/A -Texture (Marie-wound Skin Appearance) Assessed, Excoriation -Moisture (Marie-wound Skin Appearance) Assessed -Color (Marie-wound Skin Appearance) Assessed -Temperature (Marie-wound Skin No Abnormality Appearance) (Pt Warm) -Tenderness on Palpation (Marie-wound Yes Skin Appearance) -Ulcer Cleansing Wound Cleanser -Foul Odor after Cleansing No -Anesthetic Used 5% Lidocaine Gel Lower Limb Edema Present Yes Left Calf (cm) 46 Left Ankle (cm) 32 WC - Nurse 2 - General Ulcer CM Notes Start: 07/15/23 10:10 Freq: Status: Active Protocol: Activity Type Activity Date Activity User E-sign Co-sign Detail Recorded Client Recorded Date Recorded By Document 07/15/23 10:44 [employer] 07/15/23 10:58 Document 07/22/23 11:42 [employer] 07/22/23 12:06 Document 07/29/23 11:37 Desktop 07/29/23 11:53 Document 08/05/23 10:15 Desktop 08/05/23 10:32 07/15/23 07/22/23 07/29/23 10:44 11:42 11:37 Wound Center Nurse 2 #18 Left medial LE cluster -Time 10:44 11:42 11:38 -Correct Patient Yes Yes Yes -Correct Side, Site, Position Yes Yes Yes -Correct Procedure Yes Yes Yes -Procedure Performed Yes Yes Yes -Type of Procedure Debridement Debridement Debridement -Clinical Debridement Subcutaneous Subcutaneous Subcutaneous -Tissue Removed Subcutaneous Subcutaneous Subcutaneous -Post Debridement (cm) - Length 12.0 11.8 11 -Post Debridement (cm) - Width 15.0 17 17 -Post Debridement (cm) - Depth 0.2 0.2 0.2 -Total Square (Post) (cm) 180.00 200.6 187 -Area of Debridement (cm) - Length 12.0 11.8 11 -Area of Debridement (cm) - Width 15.0 17 17 -Total Square (Area) (cm) 180.00 200.6 187 -Tunneling No No No -Undermining/Tunneling No No No -Circular Undermining No No No -Wound/Ulcer Outcome Not Healed Not Healed Not Healed -Ulcer Cleansing Rinsed/ Rinsed/ Rinsed/ Irrigated with Irrigated with Irrigated with Saline Saline Saline -Foul Odor after Cleansing No No No -Bioengineered Tissue No No No -Bleeding Controlled with Pressure Pressure Pressure -Treatment Response Procedure Procedure Procedure Tolerated Well Tolerated Well Tolerated Well -Debridement - Subq, 1st 20sq cm Yes Yes Yes -Debridement, SubQ, ea addt'l 20sq cm 8 10 9 or part thereof Pain Scale: 0-10 Numeric Is Patient Pain Free? Yes Yes Yes 08/05/23 10:15 Wound Center Nurse 2 #18 Left medial LE cluster -Time 10:15 -Correct Patient Yes -Correct Side, Site, Position Yes -Correct Procedure Yes -Procedure Performed Yes -Type of Procedure Debridement -Clinical Debridement Subcutaneous -Tissue Removed Subcutaneous -Post Debridement (cm) - Length 12.0 -Post Debridement (cm) - Width 20.0 -Post Debridement (cm) - Depth 0.1 -Total Square (Post) (cm) 240.00 -Area of Debridement (cm) - Length 12.0 -Area of Debridement (cm) - Width 20.0 -Total Square (Area) (cm) 240.00 -Tunneling No -Undermining/Tunneling No -Circular Undermining No -Wound/Ulcer Outcome Not Healed -Ulcer Cleansing Wound Cleanser -Foul Odor after Cleansing No -Bioengineered Tissue No -Bleeding Controlled with Pressure -Treatment Response Procedure Tolerated Well -Debridement - Subq, 1st 20sq cm Yes -Debridement, SubQ, ea addt'l 20sq cm 11 or part thereof Pain Scale: 0-10 Numeric Is Patient Pain Free? Yes WC - Nurse 3 - General Ulcer D/C NN Start: 07/15/23 10:10 Freq: Status: Active Protocol: Activity Type Activity Date Activity User E-sign Co-sign Detail Recorded Client Recorded Date Recorded By Document 07/15/23 11:40 MW Desktop 07/15/23 12:21 MW Document 07/22/23 12:39 MT Desktop 07/22/23 12:40 MT Document 08/05/23 10:51 MT Desktop 08/05/23 10:52 MT Edit Result 08/05/23 10:51 MT (1) Desktop 08/05/23 10:59 RB Document 08/05/23 10:58 RB Desktop 08/05/23 10:58 RB (1) #18 Left medial LE cluster - Primary Dressing Applied Optilok 8x12 => Hysept ($),Optilok => 8x12 07/15/23 07/22/23 08/05/23 11:40 12:39 10:51 Wound Care Center Nurse 3 #18 Left medial LE cluster -Ulcer Cleansing Rinsed/ Soap and Water Wound Cleanser Irrigated with Saline -Foul Odor after Cleansing No -Negative Pressure Wound Therapy N/A -Primary Dressing Applied Hysept ($), Optilok 8x12 Hysept ($), Optilok 8x12 Optilok 8x12 -Other Dressing Dakins Wet to dakins wet to dakins dry dry moistened gauze -Primary Dressing Covered/Secured with Dry Gauze & Dry Gauze & Dry Gauze & Roll Gauze, Roll Gauze, Roll Gauze, Secured with Secured with Secured with Tape Tape Tape -Optilok 8x12 1 1 1 Right -Tubular Bandage Single Layer -Size of Tubigrip Used Size D -Size D ($) 1 Left -Lotion applied to leg before No compression wrap -Tubular Bandage Double Layer Single Layer -Size of Tubigrip Used Size E Size D -Size D ($) 1 -Size E ($) 2 Treatment Response Procedure Procedure Tolerated Well Tolerated Well Pain Scale: 0-10 Numeric Is Patient Pain Free? Yes Yes Yes Teaching: Wound Center Control Swelling with Leg Elevation -Person Taught Patient -Teaching Method Discussion, Demonstration -Response to teaching Verbalize understanding WC - Visit Discharge Discharge Condition Stable Stable Stable Ambulatory Status Ambulatory, Ambulatory, Ambulatory, Walker Walker Walker Transportation Private Auto Private Auto Private Auto Accompanied by self Medication Reconcilliation completed & No No No provided to patient/care provider Clinical Summary of Care Provided Yes Yes Yes 08/05/23 10:58 Wound Care Center Nurse 3 #18 Left medial LE cluster -Ulcer Cleansing -Foul Odor after Cleansing -Negative Pressure Wound Therapy -Primary Dressing Applied Hysept ($) -Other Dressing -Primary Dressing Covered/Secured with -Optilok 8x12 Right -Tubular Bandage -Size of Tubigrip Used -Size D ($) Left -Lotion applied to leg before compression wrap -Tubular Bandage -Size of Tubigrip Used -Size D ($) -Size E ($) Treatment Response Pain Scale: 0-10 Numeric Is Patient Pain Free? Yes Teaching: Wound Center Control Swelling with Leg Elevation -Person Taught -Teaching Method -Response to teaching WC - Visit Discharge Discharge Condition Ambulatory Status Transportation Accompanied by Medication Reconcilliation completed & provided to patient/care provider Clinical Summary of Care Provided Assessment/Plan Assessment/Plan (1) Ulcer of left lower extremity with fat layer exposed: CODE(S): L97.922 - Non-pressure chronic ulcer of unspecified part of left lower leg with fat layer exposed (2) Venous insufficiency: CODE(S): I87.2 - Venous insufficiency (chronic) (peripheral) (3) Edema: CODE(S): R60.9 - Edema, unspecified QUALIFIERS: Edema type: unspecified Qualified Code(s): R60.9 - Edema, unspecified (4) History of CVA (cerebrovascular accident): CODE(S): Z86.73 - Personal history of transient ischemic attack (TIA), andcerebral infarction without residual deficits (5) 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 At home wound-care instructions: Will apply Dakins wet to dry gauze to ulcers and will cover with super absorber and KISHORE bandage changed daily for heavy drainage. Will have him start Levaquin to treat Pseudomonas infection as topicaltreatment with Dakins is not improving. Off-loading: The patient was instructed to avoid pressure and friction on the affected areas. Reposition every 2 hours at minimum. Avoid prolonged standing and/or dangling of legs. When seated, feet should be elevated at chest level. Frequent ambulation is encouraged. Encouraged lymphedema pump use. Diet: Patient encouraged to increase protein intake while taking caution to avoid high carbohydrate and/or sugar intake. Labs/cultures/imaging: Wound culture showed 1+ Pseudomonas that is sensitive to antibiotics. Follow-up: Return in 1 week for wound care follow up and have secondary dressingchanged by home health Tuesday and Tuesday. Return sooner or report to the emergency room should symptoms worsen, or new symptoms arise. Note: [employer] speech recognition hair tinter software was used to create portions of this document. Sound-alike and misspelled words, as well as other hair tinter errors may be contained in the documentation. 08/05/23 1451 <Electronically signed by Patricia Garcia DO> Cosigner Signature (if applicable): CC: ~ Signed [facility] Work Phone: [phone] Progress note Author Patricia Garcia [facility] July 29, 2023 3:32pm Note Date/Time July 29, 2023 3 :32pm [facility] [address] [place] [id number] Progress Note - Wound Care 07/29/23 1532 MR#: [id number] Acct: [id number] Name: ESTEBAN URBINA Rep #:[id number] : 1955 68 From: Patricia Garcia DO PCP: Dr. Patricia Garcia DO Status:REG RCR Location: History of Present Illness Date of Service: 07/29/23 Chief Complaint: venous ulcers of left lower extremity History of Wound: Mauricio is a 67 yo gentleman who is here today for evaluation of ulcers to to his bilateral lower legs. [facility]. The left LE ulcer started after he developed increased swelling and blisters of left leg in October and the right leg started sometime at the end of October. He was seen at PCP's office a culture was taken and it was resistant to several antibiotics. He was treated initially with Levaquin but had myalgias and then was treated with doxycycline which he finished 2 days ago. He denies improvementand is having swelling to his left calf and thigh. He has been having swelling to both lower extremities for many years and it has worsened over the last few months. He has not been compliant with compression. He has had increased pain especially in the left leg. He has clear yellow drainage and redness without odor or warmth. He is anti-coagulated on coumadin. He has been washing with Dial soap and witch ifrah. He had been using Collagen at times and using Calcium Alginate and covering with ABD pads during October. He was treated with 3M compression and Aquacel Ag. He was referred to the wound center for ongoing treatment. His ulcers have moderate to heavy drainage. He was recently hospitalized for cellulitis and edema for the last 10 days. He was in the hospital from 11/30/22 until 12/09/22 for treatment of cellulitis and edema. He underwent treatment with Vancomycin and IV lasix and compression. Discharged on 12/09/22 and is currently in the Skilled section of [facility]. He returned to his assisted living apartment on Tuesday12/21/22. Subjective Subjective Ulcers are relatively unchanged but seem to be decreasing in size through islands between ulcers. Edema is still fairly uncontrolled today. He did use pumps. He has had less pain. Denies fever, chills, or increased drainage. Wound culture was positive for Pseudomonas. Objective Data Objective Data Vital Signs: Vital Signs Temp Pulse Resp BP O2 Del Method 97.2 F L 70 18 107/64 Room Air 07/29/23 11:12 07/29/23 11:12 07/29/23 11:12 07/29/23 11:12 07/29/23 11:12 Oxygen Delivery Method Room Air Physical Exam Const alert, oriented x3 and no apparent distress General Appearance: cooperative and comfortable HEENT normocephalic and head/scalp atraumatic Lymph Lymphatic: lymphedema moderate Resp normal respiratory effort Effort and Inspection: able to speak in complete sentences Cardio regular rate and regular rhythm Extremity General Extremity: edema bilateral lower extremity Details: severe Skin Wounds: wounds noted Wound Narrative: as in clinical panel Psych mental status grossly normal, thought process normal, cooperative and affect normal Debridement Note Debridement Note Wound debrided: left medial LE cluster Laterality: Left Type of Debridement: Excisional debridement Anesthesia Used: 4% Lidocaine Solution and 5% Lidocaine Gel Depth: Down to and including healthy tissue and in the subcutaneous layer Percentage of wound debrided: 100 Instrument Used: - (misonix ultrasonic debridement) Tissue Removed: Yellow slough, devitalized tissue Severity: Fat Layer Exposed Amount of bleeding with debridement: Mild Bleeding Controlled with: Compression and gauze Patient tolerated procedure: Patient tolerated procedure well Post-Debridement Measurements and Additional Note: Post-Debridement Measurements/Treatment DEBBIE - Nurse 1 - General Ulcer Assessment Start: 07/15/23 10:10 Freq: Status: Active Protocol: ONDINA Activity Type Activity Date Activity User E-sign Co-sign Detail Recorded Client Recorded Date Recorded By Document 07/15/23 10:10 MW Desktop 07/15/23 10:12 MW Document 07/22/23 11:19 MT Desktop 07/22/23 11:35 MT Document 07/29/23 11:12 MW Desktop 07/29/23 11:16 MW 07/15/23 07/22/23 07/29/23 10:10 11:19 11:12 - Today's Visit Information Type of service Follow-up Visit Follow-up Visit Follow-up Visit (Physician/APPLICATIONS SPECIALIST (Physician/APPLICATIONS SPECIALIST (Physician/APPLICATIONS SPECIALIST ) ) ) Arrival Mode Ambulatory Ambulatory, Ambulatory Walker Transfer Assistance None None Accompanied by self self self Patient Identification Verified (Name & Yes Yes Yes ) Patient Requires Transmission-Based No No Precautions Safety Precautions Fall Prevention NA Vital Signs Temperature (97.8 F-99.1 F) 96.4 F L 97.4 F L 97.2 F L Temperature Source Temporal Temporal Temporal Pulse Rate (60-100) 68 66 70 Pulse Location Monitor Monitor Monitor Respiratory Rate (12-18) 16 18 18 Respiratory rate source Observation Observation Observation Oxygen Delivery Method Room Air Room Air Room Air Blood Pressure (90/60-120/80) 113/65 135/63 H 107/64 Blood Pressure Mean (mm Hg) 81 87 78 Source Monitor Monitor Monitor Position Sitting Sitting Sitting Blood Pressure Location Left Arm Right Arm Right Arm History Since Last Visit- (Skip if this is Patient's initial visit) Have you changed medications since your No No last visit? Any new allergies or adverse reactions No No Had a fall/change in ADL's that may No No increase risk of falls Signs or symptoms of abuse and/or No No neglect since last visit Have you been in the hospital since your No No No last visit? Has dressing in place as prescribed Yes Yes Yes Has compression in place as prescribed Yes Yes Yes Has offloadiing in place as prescribed N/A N/A N/A Experienced any changes in pain level or No No No management Left Footwear Regular Shoe Regular Shoe Regular Shoe Right Footwear Regular Shoe Regular Shoe Regular Shoe Pain Scale: 0-10 Numeric Is Patient Pain Free? Yes Yes No Left medial LE -Description Burning -Intensity 6 -Duration (hours) Acute -Pain Behavior No Change in Behavior -Pain Aggravating Factors Walking, Debridement -Alleviating Factors/Interventions None -Effectiveness of Alleviating Factor/ Moderately Intervention effective -Comments Takes pain medication when due Teaching: Wound Center Dressing Your Wound -Person Taught Patient -Teaching Method Discussion -Response to teaching Verbalize understanding WC - Nurse 1 - General Ulcer Measurement Start: 07/15/23 10:10 Freq: Status: Active Protocol: Activity Type Activity Date Activity User E-sign Co-sign Detail Recorded Client Recorded Date Recorded By Document 07/15/23 10:10 MW Desktop 07/15/23 10:12 MW Document 07/22/23 11:19 MT Desktop 07/22/23 11:35 MT Edit Result 07/22/23 11:19 MT (1) Desktop 07/22/23 12:32 MT Document 07/29/23 11:12 MW Desktop 07/29/23 11:16 MW (1) Left Calf (cm) 46 => 45 07/15/23 07/22/23 07/29/23 10:10 11:19 11:12 Wound Center Nurse 1 #18 Left medial LE cluster -Combined with other wound No No -Current Size (cm) - Length 12.0 23 10.5 -Current Size (cm) - Width 19.0 10.5 18.0 -Current Size (cm) - Depth 0.3 0.1 0.3 -Total Square Cm 228.00 241.5 189.00 -Photo Taken No No -Epithelialization None Present None Present -Tunneling No No No -Undermining/Tunneling No No No -Circular Undermining No No No -Exudate Amt Large Medium Large -Exudate Type Serosanguineous Serous Serosanguineous -Wound Margin Distinct, Flat & Intact Distinct, Outline Outline Attached Attached -Granulation Amt Large (67-100%) Medium (34-66%) Large (67-100%) -Granulation Quality Lingle Pale,Lingle Lingle -Slough/Fibrin Yes Yes -Necrosis Amt Small (1-33%) Medium (34-66%) Small (1-33%) -Necrotic Tissue Type Adherent Slough Adherent Slough Adherent Slough -Structure Exposed N/A N/A -Texture (Marie-wound Skin Appearance) Assessed, Assessed, Assessed, Localized Edema Localized Edema Localized Edema ,Scarring ,Scarring -Moisture (Marie-wound Skin Appearance) Assessed, Assessed Assessed Maceration -Color (Marie-wound Skin Appearance) Assessed, Assessed, Assessed, Hemosiderin Erythema, Hemosiderin Staining Hemosiderin Staining Staining -Temperature (Marie-wound Skin No Abnormality No Abnormality No Abnormality Appearance) (Pt Warm) (Pt Warm) (Pt Warm) -Tenderness on Palpation (Marie-wound No No Yes Skin Appearance) -Ulcer Cleansing Soap and Water Soap and Water Soap and Water -Foul Odor after Cleansing No No No -Anesthetic Used 4% Lidocaine 5% Lidocaine 5% Lidocaine Solution,5% Gel Gel Lidocaine Gel Lower Limb Edema Present Yes Yes Left Calf (cm) 44.8 45 46.5 Left Ankle (cm) 31.0 32 32.5 WC - Nurse 2 - General Ulcer CM Notes Start: 07/15/23 10:10 Freq: Status: Active Protocol: Activity Type Activity Date Activity User E-sign Co-sign Detail Recorded Client Recorded Date Recorded By Document 07/15/23 10:44 [employer] 07/15/23 10:58 Document 07/22/23 11:42 [employer] 07/22/23 12:06 Document 07/29/23 11:37 Desktop 07/29/23 11:53 07/15/23 07/22/23 07/29/23 10:44 11:42 11:37 Wound Center Nurse 2 #18 Left medial LE cluster -Time 10:44 11:42 11:38 -Correct Patient Yes Yes Yes -Correct Side, Site, Position Yes Yes Yes -Correct Procedure Yes Yes Yes -Procedure Performed Yes Yes Yes -Type of Procedure Debridement Debridement Debridement -Clinical Debridement Subcutaneous Subcutaneous Subcutaneous -Tissue Removed Subcutaneous Subcutaneous Subcutaneous -Post Debridement (cm) - Length 12.0 11.8 11 -Post Debridement (cm) - Width 15.0 17 17 -Post Debridement (cm) - Depth 0.2 0.2 0.2 -Total Square (Post) (cm) 180.00 200.6 187 -Area of Debridement (cm) - Length 12.0 11.8 11 -Area of Debridement (cm) - Width 15.0 17 17 -Total Square (Area) (cm) 180.00 200.6 187 -Tunneling No No No -Undermining/Tunneling No No No -Circular Undermining No No No -Wound/Ulcer Outcome Not Healed Not Healed Not Healed -Ulcer Cleansing Rinsed/ Rinsed/ Rinsed/ Irrigated with Irrigated with Irrigated with Saline Saline Saline -Foul Odor after Cleansing No No No -Bioengineered Tissue No No No -Bleeding Controlled with Pressure Pressure Pressure -Treatment Response Procedure Procedure Procedure Tolerated Well Tolerated Well Tolerated Well -Debridement - Subq, 1st 20sq cm Yes Yes Yes -Debridement, SubQ, ea addt'l 20sq cm 8 10 9 or part thereof Pain Scale: 0-10 Numeric Is Patient Pain Free? Yes Yes Yes WC - Nurse 3 - General Ulcer D/C NN Start: 07/15/23 10:10 Freq: Status: Active Protocol: Activity Type Activity Date Activity User E-sign Co-sign Detail Recorded Client Recorded Date Recorded By Document 07/15/23 11:40 MW Desktop 07/15/23 12:21 MW Document 07/22/23 12:39 MT Desktop 07/22/23 12:40 MT 07/15/23 07/22/23 11:40 12:39 Wound Care Center Nurse 3 #18 Left medial LE cluster -Ulcer Cleansing Rinsed/ Soap and Water Irrigated with Saline -Foul Odor after Cleansing No -Negative Pressure Wound Therapy N/A -Primary Dressing Applied Hysept ($), Optilok 8x12 Optilok 8x12 -Other Dressing Dakins Wet to dakins wet to dry dry -Primary Dressing Covered/Secured with Dry Gauze & Dry Gauze & Roll Gauze, Roll Gauze, Secured with Secured with Tape Tape -Optilok 8x12 1 1 Left -Lotion applied to leg before No compression wrap -Tubular Bandage Double Layer -Size of Tubigrip Used Size E -Size E ($) 2 Treatment Response Procedure Tolerated Well Pain Scale: 0-10 Numeric Is Patient Pain Free? Yes Yes Teaching: Wound Center Control Swelling with Leg Elevation -Person Taught Patient -Teaching Method Discussion, Demonstration -Response to teaching Verbalize understanding WC - Visit Discharge Discharge Condition Stable Stable Ambulatory Status Ambulatory, Ambulatory, Walker Walker Transportation Private Auto Private Auto Accompanied by self Medication Reconcilliation completed & No No provided to patient/care provider Clinical Summary of Care Provided Yes Yes Assessment/Plan Assessment/Plan (1) Ulcer of left lower extremity with fat layer exposed: CODE(S): L97.922 - Non-pressure chronic ulcer of unspecified part of left lower leg with fat layer exposed (2) Venous insufficiency: CODE(S): I87.2 - Venous insufficiency (chronic) (peripheral) (3) Edema: CODE(S): R60.9 - Edema, unspecified QUALIFIERS: Edema type: unspecified Qualified Code(s): R60.9 - Edema, unspecified (4) History of CVA (cerebrovascular accident): CODE(S): Z86.73 - Personal history of transient ischemic attack (TIA), andcerebral infarction without residual deficits (5) 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 At home wound-care instructions: Will apply Dakins wet to dry gauze to ulcers and will cover with super absorber and KISHORE bandage changed daily for heavy drainage. Off-loading: The patient was instructed to avoid pressure and friction on the affected areas. Reposition every 2 hours at minimum. Avoid prolonged standing and/or dangling of legs. When seated, feet should be elevated at chest level. Frequent ambulation is encouraged. Encouraged lymphedema pump use. Diet: Patient encouraged to increase protein intake while taking caution to avoid high carbohydrate and/or sugar intake. Labs/cultures/imaging: Wound culture showed 1+ Pseudomonas that is sensitive to antibiotics. Follow-up: Return in 1 week for wound care follow up and have secondary dressingchanged by home health Tuesday and Tuesday. Return sooner or report to the emergency room should symptoms worsen, or new symptoms arise. Note: [employer] speech recognition hair tinter software was used to create portions of this document. Sound-alike and misspelled words, as well as other hair tinter errors may be contained in the documentation. 07/29/23 1532 <Electronically signed by Patricia Garcia DO> Cosigner Signature (if applicable): CC: ~ Signed [facility] Work Phone: [phone] Progress note Author Patricia Garcia [facility] July 22, 2023 12:57pm Note Date/Time July 22, 2023 1 2:57pm [facility] [address] [place] [address] Progress Note - Wound Care 07/22/23 1255 MR#: [id number] Acct: [id number] Name: ESTEBAN URBINA Rep #:[id number] : 1955 68 From: Patricia Garcia DO PCP: Dr. Patricia Garcia DO Status:REG RCR Location: History of Present Illness Date of Service: 07/22/23 Chief Complaint: venous ulcers of left lower extremity History of Wound: Mauricio is a 67 yo gentleman who is here today for evaluation of ulcers to to his bilateral lower legs. [facility]. The left LE ulcer started after he developed increased swelling and blisters of left leg in October and the right leg started sometime at the end of October. He was seen at PCP's office a culture was taken and it was resistant to several antibiotics. He was treated initially with Levaquin but had myalgias and then was treated with doxycycline which he finished 2 days ago. He denies improvementand is having swelling to his left calf and thigh. He has been having swelling to both lower extremities for many years and it has worsened over the last few months. He has not been compliant with compression. He has had increased pain especially in the left leg. He has clear yellow drainage and redness without odor or warmth. He is anti-coagulated on coumadin. He has been washing with Dial soap and witch ifrah. He had been using Collagen at times and using Calcium Alginate and covering with ABD pads during October. He was treated with 3M compression and Aquacel Ag. He was referred to the wound center for ongoing treatment. His ulcers have moderate to heavy drainage. He was recently hospitalized for cellulitis and edema for the last 10 days. He was in the hospital from 11/30/22 until 12/09/22 for treatment of cellulitis and edema. He underwent treatment with Vancomycin and IV lasix and compression. Discharged on 12/09/22 and is currently in the Skilled section of [facility]. He returned to his assisted living apartment on Tuesday12/21/22. Subjective Subjective Ulcers are relatively unchanged but seem to be decreasing in size through islands between ulcers. Edema is still fairly uncontrolled today. He did use pumps. He has had less pain. Denies fever, chills, or increased drainage. Wound culture was positive for Pseudomonas. Objective Data Objective Data Vital Signs: Vital Signs Temp Pulse Resp BP O2 Del Method 97.4 F L 66 18 135/63 H Room Air 07/22/23 11:19 07/22/23 11:19 07/22/23 11:19 07/22/23 11:19 07/22/23 11:19 Oxygen Delivery Method Room Air Physical Exam Const alert, oriented x3 and no apparent distress General Appearance: cooperative and comfortable HEENT normocephalic and head/scalp atraumatic Lymph Lymphatic: lymphedema moderate Resp normal respiratory effort Effort and Inspection: able to speak in complete sentences Cardio regular rate and regular rhythm Extremity General Extremity: edema bilateral lower extremity Details: severe Skin Wounds: wounds noted Wound Narrative: as in clinical panel Psych mental status grossly normal, thought process normal, cooperative and affect normal Debridement Note Debridement Note Wound debrided: left medial LE cluster Laterality: Left Type of Debridement: Excisional debridement Anesthesia Used: 4% Lidocaine Solution and 5% Lidocaine Gel Depth: Down to and including healthy tissue and in the subcutaneous layer Percentage of wound debrided: 100 Instrument Used: - (misonix ultrasonic debridement) Tissue Removed: Yellow slough, devitalized tissue Severity: Fat Layer Exposed Amount of bleeding with debridement: Mild Bleeding Controlled with: Compression and gauze Patient tolerated procedure: Patient tolerated procedure well Post-Debridement Measurements and Additional Note: Post-Debridement Measurements/Treatment DEBBIE - Nurse 1 - General Ulcer Assessment Start: 07/15/23 10:10 Freq: Status: Active Protocol: ONDINA Activity Type Activity Date Activity User E-sign Co-sign Detail Recorded Client Recorded Date Recorded By Document 07/15/23 10:10 MW Desktop 07/15/23 10:12 MW Document 07/22/23 11:19 MT Desktop 07/22/23 11:35 MT 07/15/23 07/22/23 10:10 11:19 - Today's Visit Information Type of service Follow-up Visit Follow-up Visit (Physician/APPLICATIONS SPECIALIST (Physician/APPLICATIONS SPECIALIST ) ) Arrival Mode Ambulatory Ambulatory, Walker Transfer Assistance None Accompanied by self self Patient Identification Verified (Name & Yes Yes ) Patient Requires Transmission-Based No Precautions Safety Precautions Fall Prevention Vital Signs Temperature (97.8 F-99.1 F) 96.4 F L 97.4 F L Temperature Source Temporal Temporal Pulse Rate (60-100) 68 66 Pulse Location Monitor Monitor Respiratory Rate (12-18) 16 18 Respiratory rate source Observation Observation Oxygen Delivery Method Room Air Room Air Blood Pressure (90/60-120/80) 113/65 135/63 H Blood Pressure Mean (mm Hg) 81 87 Source Monitor Monitor Position Sitting Sitting Blood Pressure Location Left Arm Right Arm History Since Last Visit- (Skip if this is Patient's initial visit) Have you changed medications since your No last visit? Any new allergies or adverse reactions No Had a fall/change in ADL's that may No increase risk of falls Signs or symptoms of abuse and/or No neglect since last visit Have you been in the hospital since your No No last visit? Has dressing in place as prescribed Yes Yes Has compression in place as prescribed Yes Yes Has offloadiing in place as prescribed N/A N/A Experienced any changes in pain level or No No management Left Footwear Regular Shoe Regular Shoe Right Footwear Regular Shoe Regular Shoe Pain Scale: 0-10 Numeric Is Patient Pain Free? Yes Yes Teaching: Wound Center Dressing Your Wound -Person Taught Patient -Teaching Method Discussion -Response to teaching Verbalize understanding - Nurse 1 - General Ulcer Measurement Start: 07/15/23 10:10 Freq: Status: Active Protocol: Activity Type Activity Date Activity User E-sign Co-sign Detail Recorded Client Recorded Date Recorded By Document 07/15/23 10:10 MW Desktop 07/15/23 10:12 MW Document 07/22/23 11:19 MT Desktop 07/22/23 11:35 MT Edit Result 07/22/23 11:19 MT (1) Desktop 07/22/23 12:32 MT (1) Left Calf (cm) 46 => 45 07/15/23 07/22/23 10:10 11:19 Wound Center Nurse 1 #18 Left medial LE cluster -Combined with other wound No -Current Size (cm) - Length 12.0 23 -Current Size (cm) - Width 19.0 10.5 -Current Size (cm) - Depth 0.3 0.1 -Total Square Cm 228.00 241.5 -Photo Taken No -Epithelialization None Present -Tunneling No No -Undermining/Tunneling No No -Circular Undermining No No -Exudate Amt Large Medium -Exudate Type Serosanguineous Serous -Wound Margin Distinct, Flat & Intact Outline Attached -Granulation Amt Large (67-100%) Medium (34-66%) -Granulation Quality Lingle Pale,Lingle -Slough/Fibrin Yes -Necrosis Amt Small (1-33%) Medium (34-66%) -Necrotic Tissue Type Adherent Slough Adherent Slough -Structure Exposed N/A -Texture (Marie-wound Skin Appearance) Assessed, Assessed, Localized Edema Localized Edema ,Scarring -Moisture (Marie-wound Skin Appearance) Assessed, Assessed Maceration -Color (Marie-wound Skin Appearance) Assessed, Assessed, Hemosiderin Erythema, Staining Hemosiderin Staining -Temperature (Marie-wound Skin No Abnormality No Abnormality Appearance) (Pt Warm) (Pt Warm) -Tenderness on Palpation (Marie-wound No No Skin Appearance) -Ulcer Cleansing Soap and Water Soap and Water -Foul Odor after Cleansing No No -Anesthetic Used 4% Lidocaine 5% Lidocaine Solution,5% Gel Lidocaine Gel Lower Limb Edema Present Yes Left Calf (cm) 44.8 45 Left Ankle (cm) 31.0 32 WC - Nurse 2 - General Ulcer CM Notes Start: 07/15/23 10:10 Freq: Status: Active Protocol: Activity Type Activity Date Activity User E-sign Co-sign Detail Recorded Client Recorded Date Recorded By Document 07/15/23 10:44 GM Desktop 07/15/23 10:58 GM Document 07/22/23 11:42 GM Desktop 07/22/23 12:06 GM 07/15/23 07/22/23 10:44 11:42 Wound Center Nurse 2 #18 Left medial LE cluster -Time 10:44 11:42 -Correct Patient Yes Yes -Correct Side, Site, Position Yes Yes -Correct Procedure Yes Yes -Procedure Performed Yes Yes -Type of Procedure Debridement Debridement -Clinical Debridement Subcutaneous Subcutaneous -Tissue Removed Subcutaneous Subcutaneous -Post Debridement (cm) - Length 12.0 11.8 -Post Debridement (cm) - Width 15.0 17 -Post Debridement (cm) - Depth 0.2 0.2 -Total Square (Post) (cm) 180.00 200.6 -Area of Debridement (cm) - Length 12.0 11.8 -Area of Debridement (cm) - Width 15.0 17 -Total Square (Area) (cm) 180.00 200.6 -Tunneling No No -Undermining/Tunneling No No -Circular Undermining No No -Wound/Ulcer Outcome Not Healed Not Healed -Ulcer Cleansing Rinsed/ Rinsed/ Irrigated with Irrigated with Saline Saline -Foul Odor after Cleansing No No -Bioengineered Tissue No No -Bleeding Controlled with Pressure Pressure -Treatment Response Procedure Procedure Tolerated Well Tolerated Well -Debridement - Subq, 1st 20sq cm Yes Yes -Debridement, SubQ, ea addt'l 20sq cm 8 10 or part thereof Pain Scale: 0-10 Numeric Is Patient Pain Free? Yes Yes WC - Nurse 3 - General Ulcer D/C NN Start: 07/15/23 10:10 Freq: Status: Active Protocol: Activity Type Activity Date Activity User E-sign Co-sign Detail Recorded Client Recorded Date Recorded By Document 07/15/23 11:40 MW Desktop 07/15/23 12:21 MW Document 07/22/23 12:39 MT Desktop 07/22/23 12:40 MT 07/15/23 07/22/23 11:40 12:39 Wound Care Center Nurse 3 #18 Left medial LE cluster -Ulcer Cleansing Rinsed/ Soap and Water Irrigated with Saline -Foul Odor after Cleansing No -Negative Pressure Wound Therapy N/A -Primary Dressing Applied Hysept ($), Optilok 8x12 Optilok 8x12 -Other Dressing Dakins Wet to dakins wet to dry dry -Primary Dressing Covered/Secured with Dry Gauze & Dry Gauze & Roll Gauze, Roll Gauze, Secured with Secured with Tape Tape -Optilok 8x12 1 1 Left -Lotion applied to leg before No compression wrap -Tubular Bandage Double Layer -Size of Tubigrip Used Size E -Size E ($) 2 Treatment Response Procedure Tolerated Well Pain Scale: 0-10 Numeric Is Patient Pain Free? Yes Yes Teaching: Wound Center Control Swelling with Leg Elevation -Person Taught Patient -Teaching Method Discussion, Demonstration -Response to teaching Verbalize understanding WC - Visit Discharge Discharge Condition Stable Stable Ambulatory Status Ambulatory, Ambulatory, Walker Walker Transportation Private Auto Private Auto Accompanied by self Medication Reconcilliation completed & No No provided to patient/care provider Clinical Summary of Care Provided Yes Yes Assessment/Plan Assessment/Plan (1) Ulcer of left lower extremity with fat layer exposed: CODE(S): L97.922 - Non-pressure chronic ulcer of unspecified part of left lower leg with fat layer exposed (2) Venous insufficiency: CODE(S): I87.2 - Venous insufficiency (chronic) (peripheral) (3) Edema: CODE(S): R60.9 - Edema, unspecified QUALIFIERS: Edema type: unspecified Qualified Code(s): R60.9 - Edema, unspecified (4) History of CVA (cerebrovascular accident): CODE(S): Z86.73 - Personal history of transient ischemic attack (TIA), andcerebral infarction without residual deficits (5) 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 At home wound-care instructions: Will apply Dakins wet to dry gauze to ulcers and will cover with super absorber and KISHORE bandage changed daily for heavy drainage. Off-loading: The patient was instructed to avoid pressure and friction on the affected areas. Reposition every 2 hours at minimum. Avoid prolonged standing and/or dangling of legs. When seated, feet should be elevated at chest level. Frequent ambulation is encouraged. Encouraged lymphedema pump use. Diet: Patient encouraged to increase protein intake while taking caution to avoid high carbohydrate and/or sugar intake. Labs/cultures/imaging: Wound culture showed 1+ Pseudomonas that is sensitive to antibiotics. Follow-up: Return in 1 week for wound care follow up and have secondary dressingchanged by home health Tuesday and Tuesday. Return sooner or report to the emergency room should symptoms worsen, or new symptoms arise. Note: [employer] speech recognition hair tinter software was used to create portions of this document. Sound-alike and misspelled words, as well as other hair tinter errors may be contained in the documentation. 07/22/23 1257 <Electronically signed by Patricia Garcia DO> Cosigner Signature (if applicable): CC: ~ Signed [facility] Work Phone: 1(968) 801-801210-06-2023 Progress note Author Patricia Garcia [facility] July 15, 2023 3:01pm Note Date/Time July 15, 2023 3: 01pm [facility] [address] [place] [address] Progress Note - Wound Care 07/15/23 1458 MR#: [id number] Acct: [id number] Name: ESTEBAN URBINA Rep #:[id number] : 1955 68 From: Patricia Garcia DO PCP: Dr. Patricia Garcia DO Status:REG RCR Location: History of Present Illness Date of Service: 07/15/23 Chief Complaint: venous ulcers of left lower extremity History of Wound: Mauricio is a 67 yo gentleman who is here today for evaluation of ulcers to to his bilateral lower legs. [facility]. The left LE ulcer started after he developed increased swelling and blisters of left leg in October and the right leg started sometime at the end of October. He was seen at PCP's office a culture was taken and it was resistant to several antibiotics. He was treated initially with Levaquin but had myalgias and then was treated with doxycycline which he finished 2 days ago. He denies improvementand is having swelling to his left calf and thigh. He has been having swelling to both lower extremities for many years and it has worsened over the last few months. He has not been compliant with compression. He has had increased pain especially in the left leg. He has clear yellow drainage and redness without odor or warmth. He is anti-coagulated on coumadin. He has been washing with Dial soap and witch ifrah. He had been using Collagen at times and using Calcium Alginate and covering with ABD pads during October. He was treated with 3M compression and Aquacel Ag. He was referred to the wound center for ongoing treatment. His ulcers have moderate to heavy drainage. He was recently hospitalized for cellulitis and edema for the last 10 days. He was in the hospital from 11/30/22 until 12/09/22 for treatment of cellulitis and edema. He underwent treatment with Vancomycin and IV lasix and compression. Discharged on 12/09/22 and is currently in the Skilled section of [facility]. He returned to his assisted living apartment on Tuesday12/21/22. Subjective Subjective Ulcers are relatively unchanged but seem to be decreasing in size through islands between ulcers. Edema is still worse today. He did use pumps. He has had increased pain. Denies fever, chills, or increased drainage. Wound culture was positive for Pseudomonas. Objective Data Objective Data Vital Signs: Vital Signs Temp Pulse Resp BP O2 Del Method 96.4 F L 68 16 113/65 Room Air 07/15/23 10:10 07/15/23 10:10 07/15/23 10:10 07/15/23 10:10 07/15/23 10:10 Oxygen Delivery Method Room Air Physical Exam Const alert, oriented x3 and no apparent distress General Appearance: cooperative and comfortable HEENT normocephalic and head/scalp atraumatic Lymph Lymphatic: lymphedema moderate Resp normal respiratory effort Effort and Inspection: able to speak in complete sentences Cardio regular rate and regular rhythm Extremity General Extremity: edema bilateral lower extremity Details: severe Skin Wounds: wounds noted Wound Narrative: as in clinical panel Psych mental status grossly normal, thought process normal, cooperative and affect normal Debridement Note Debridement Note Wound debrided: left medial LE cluster Laterality: Left Type of Debridement: Excisional debridement Anesthesia Used: 4% Lidocaine Solution and 5% Lidocaine Gel Depth: Down to and including healthy tissue and in the subcutaneous layer Percentage of wound debrided: 100 Instrument Used: - (misonix ultrasonic debridement) Tissue Removed: Yellow slough, devitalized tissue Severity: Fat Layer Exposed Amount of bleeding with debridement: Mild Bleeding Controlled with: Compression and gauze Patient tolerated procedure: Patient tolerated procedure well Post-Debridement Measurements and Additional Note: Post-Debridement Measurements/Treatment DEBBIE - Nurse 1 - General Ulcer Assessment Start: 07/15/23 10:10 Freq: Status: Active Protocol: ONDINA Activity Type Activity Date Activity User E-sign Co-sign Detail Recorded Client Recorded Date Recorded By Document 07/15/23 10:10 MW [employer] 07/15/23 10:12 MW 07/15/23 10:10 WC - Today's Visit Information Type of service Follow-up Visit (Physician/APPLICATIONS SPECIALIST ) Arrival Mode Ambulatory Transfer Assistance None Accompanied by self Patient Identification Verified (Name & Yes ) Patient Requires Transmission-Based No Precautions Vital Signs Temperature (97.8 F-99.1 F) 96.4 F L Temperature Source Temporal Pulse Rate (60-100) 68 Pulse Location Monitor Respiratory Rate (12-18) 16 Respiratory rate source Observation Oxygen Delivery Method Room Air Blood Pressure (90/60-120/80) 113/65 Blood Pressure Mean (mm Hg) 81 Source Monitor Position Sitting Blood Pressure Location Left Arm History Since Last Visit- (Skip if this is Patient's initial visit) Have you changed medications since your No last visit? Any new allergies or adverse reactions No Had a fall/change in ADL's that may No increase risk of falls Signs or symptoms of abuse and/or No neglect since last visit Have you been in the hospital since your No last visit? Has dressing in place as prescribed Yes Has compression in place as prescribed Yes Has offloadiing in place as prescribed N/A Experienced any changes in pain level or No management Left Footwear Regular Shoe Right Footwear Regular Shoe Pain Scale: 0-10 Numeric Is Patient Pain Free? Yes Teaching: Wound Center Dressing Your Wound -Person Taught Patient -Teaching Method Discussion -Response to teaching Verbalize understanding - Nurse 1 - General Ulcer Measurement Start: 07/15/23 10:10 Freq: Status: Active Protocol: Activity Type Activity Date Activity User E-sign Co-sign Detail Recorded Client Recorded Date Recorded By Document 07/15/23 10:10 MW [employer] 07/15/23 10:12 MW 07/15/23 10:10 Wound Center Nurse 1 #18 Left medial LE cluster -Combined with other wound No -Current Size (cm) - Length 12.0 -Current Size (cm) - Width 19.0 -Current Size (cm) - Depth 0.3 -Total Square Cm 228.00 -Photo Taken No -Epithelialization None Present -Tunneling No -Undermining/Tunneling No -Circular Undermining No -Exudate Amt Large -Exudate Type Serosanguineous -Wound Margin Distinct, Outline Attached -Granulation Amt Large (67-100%) -Granulation Quality Lingle -Slough/Fibrin Yes -Necrosis Amt Small (1-33%) -Necrotic Tissue Type Adherent Slough -Structure Exposed N/A -Texture (Marie-wound Skin Appearance) Assessed, Localized Edema ,Scarring -Moisture (Marie-wound Skin Appearance) Assessed, Maceration -Color (Marie-wound Skin Appearance) Assessed, Hemosiderin Staining -Temperature (Marie-wound Skin No Abnormality Appearance) (Pt Warm) -Tenderness on Palpation (Marie-wound No Skin Appearance) -Ulcer Cleansing Soap and Water -Foul Odor after Cleansing No -Anesthetic Used 4% Lidocaine Solution,5% Lidocaine Gel Lower Limb Edema Present Yes Left Calf (cm) 44.8 Left Ankle (cm) 31.0 WC - Nurse 2 - General Ulcer CM Notes Start: 07/15/23 10:10 Freq: Status: Active Protocol: Activity Type Activity Date Activity User E-sign Co-sign Detail Recorded Client Recorded Date Recorded By Document 07/15/23 10:44 GM Desktop 07/15/23 10:58 GM 07/15/23 10:44 Wound Center Nurse 2 #18 Left medial LE cluster -Time 10:44 -Correct Patient Yes -Correct Side, Site, Position Yes -Correct Procedure Yes -Procedure Performed Yes -Type of Procedure Debridement -Clinical Debridement Subcutaneous -Tissue Removed Subcutaneous -Post Debridement (cm) - Length 12.0 -Post Debridement (cm) - Width 15.0 -Post Debridement (cm) - Depth 0.2 -Total Square (Post) (cm) 180.00 -Area of Debridement (cm) - Length 12.0 -Area of Debridement (cm) - Width 15.0 -Total Square (Area) (cm) 180.00 -Tunneling No -Undermining/Tunneling No -Circular Undermining No -Wound/Ulcer Outcome Not Healed -Ulcer Cleansing Rinsed/ Irrigated with Saline -Foul Odor after Cleansing No -Bioengineered Tissue No -Bleeding Controlled with Pressure -Treatment Response Procedure Tolerated Well -Debridement - Subq, 1st 20sq cm Yes -Debridement, SubQ, ea addt'l 20sq cm 8 or part thereof Pain Scale: 0-10 Numeric Is Patient Pain Free? Yes DEBBIE - Nurse 3 - General Ulcer D/C NN Start: 07/15/23 10:10 Freq: Status: Active Protocol: Activity Type Activity Date Activity User E-sign Co-sign Detail Recorded Client Recorded Date Recorded By Document 07/15/23 11:40 MW Desktop 07/15/23 12:21 MW 07/15/23 11:40 Wound Care Center Nurse 3 #18 Left medial LE cluster -Ulcer Cleansing Rinsed/ Irrigated with Saline -Foul Odor after Cleansing No -Negative Pressure Wound Therapy N/A -Primary Dressing Applied Hysept ($), Optilok 8x12 -Other Dressing Dakins Wet to dry -Primary Dressing Covered/Secured with Dry Gauze & Roll Gauze, Secured with Tape -Optilok 8x12 1 Left -Lotion applied to leg before No compression wrap -Tubular Bandage Double Layer -Size of Tubigrip Used Size E -Size E ($) 2 Treatment Response Procedure Tolerated Well Pain Scale: 0-10 Numeric Is Patient Pain Free? Yes Teaching: Wound Center Control Swelling with Leg Elevation -Person Taught Patient -Teaching Method Discussion, Demonstration -Response to teaching Verbalize understanding WC - Visit Discharge Discharge Condition Stable Ambulatory Status Ambulatory, Walker Transportation Private Auto Accompanied by self Medication Reconcilliation completed & No provided to patient/care provider Clinical Summary of Care Provided Yes Assessment/Plan Assessment/Plan (1) Ulcer of left lower extremity with fat layer exposed: CODE(S): L97.922 - Non-pressure chronic ulcer of unspecified part of left lower leg with fat layer exposed (2) Venous insufficiency: CODE(S): I87.2 - Venous insufficiency (chronic) (peripheral) (3) Edema: CODE(S): R60.9 - Edema, unspecified QUALIFIERS: Edema type: unspecified Qualified Code(s): R60.9 - Edema, unspecified (4) History of CVA (cerebrovascular accident): CODE(S): Z86.73 - Personal history of transient ischemic attack (TIA), andcerebral infarction without residual deficits (5) 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 At home wound-care instructions: Will apply Dakins wet to dry gauze to ulcers and will cover with super absorber and KISHORE bandage changed daily for heavy drainage. Off-loading: The patient was instructed to avoid pressure and friction on the affected areas. Reposition every 2 hours at minimum. Avoid prolonged standing and/or dangling of legs. When seated, feet should be elevated at chest level. Frequent ambulation is encouraged. Encouraged lymphedema pump use. Diet: Patient encouraged to increase protein intake while taking caution to avoid high carbohydrate and/or sugar intake. Labs/cultures/imaging: Wound culture showed 1+ Pseudomonas that is sensitive to antibiotics. Follow-up: Return in 1 week for wound care follow up and have secondary dressingchanged by home health Tuesday and Tuesday. Return sooner or report to the emergency room should symptoms worsen, or new symptoms arise. Note: [employer] speech recognition hair tinter software was used to create portions of this document. Sound-alike and misspelled words, as well as other hair tinter errors may be contained in the documentation. 07/15/23 1501 <Electronically signed by Patricia Garcia DO> Cosigner Signature (if applicable): CC: ~ Signed [facility] Work Phone: [phone] 729-952409-29-2023 Progress note Author Patricia Garcia [facility] July 08, 2023 12:55pm Note Date/Time July 08, 2023 12:56pm [facility] [address] [place] [id number] Progress Note - Wound Care 07/08/23 1252 MR#: [id number] Acct: [id number] Name: ESETBAN URBINA Rep #:[id number] : 1955 68 From: Patricia Garcia DO PCP: Dr. Patricia Garcia, DO Status:REG RCR Location: History of Present Illness Date of Service: 07/08/23 Chief Complaint: venous ulcers of left lower extremity History of Wound: Mauricio is a 67 yo gentleman who is here today for evaluation of ulcers to to his bilateral lower legs. [facility]. The left LE ulcer started after he developed increased swelling and blisters of left leg in October and the right leg started sometime at the end of October. He was seen at PCP's office a culture was taken and it was resistant to several antibiotics. He was treated initially with Levaquin but had myalgias and then was treated with doxycycline which he finished 2 days ago. He denies improvementand is having swelling to his left calf and thigh. He has been having swelling to both lower extremities for many years and it has worsened over the last few months. He has not been compliant with compression. He has had increased pain especially in the left leg. He has clear yellow drainage and redness without odor or warmth. He is anti-coagulated on coumadin. He has been washing with Dial soap and witch ifrah. He had been using Collagen at times and using Calcium Alginate and covering with ABD pads during October. He was treated with 3M compression and Aquacel Ag. He was referred to the wound center for ongoing treatment. His ulcers have moderate to heavy drainage. He was recently hospitalized for cellulitis and edema for the last 10 days. He was in the hospital from 11/30/22 until 12/09/22 for treatment of cellulitis and edema. He underwent treatment with Vancomycin and IV lasix and compression. Discharged on 12/09/22 and is currently in the Skilled section of [facility]. He returned to his assisted living apartment on Tuesday12/21/22. Subjective Subjective Ulcers are relatively unchanged but seem to be decreasing in size through islands between ulcers. Edema is worse today. He did use pumps. Denies fever, chills, increased pain or increased drainage. Wound culture was positive for Pseudomonas. Objective Data Objective Data Vital Signs: Vital Signs Temp Pulse Resp BP 97 F L 60 18 109/61 07/08/23 10:26 07/08/23 10:26 07/08/23 10:26 07/08/23 10:26 Lab / Micro Data Micro: Microbiology 07/01/23 11:10 Wound - Leg, Left Gram Stain - Final 07/01/23 11:10 Wound - Leg, Left Wound Culture - Final Pseudomonas aeruginosa 07/01/23 11:10 Wound - Leg, Left Anaerobic Culture - Final No growth in 5 days. Physical Exam Const alert, oriented x3 and no apparent distress General Appearance: cooperative and comfortable HEENT normocephalic and head/scalp atraumatic Lymph Lymphatic: lymphedema moderate Resp normal respiratory effort Effort and Inspection: able to speak in complete sentences Cardio regular rate and regular rhythm Extremity General Extremity: edema bilateral lower extremity Details: severe Skin Wounds: wounds noted Wound Narrative: as in clinical panel Psych mental status grossly normal, thought process normal, cooperative and affect normal Debridement Note Debridement Note Wound debrided: left medial LE cluster Laterality: Left Type of Debridement: Excisional debridement Anesthesia Used: 4% Lidocaine Solution and 5% Lidocaine Gel Depth: Down to and including healthy tissue and in the subcutaneous layer Percentage of wound debrided: 100 Instrument Used: - (misonix ultrasonic debridement) Tissue Removed: Yellow slough, devitalized tissue Severity: Fat Layer Exposed Amount of bleeding with debridement: Mild Bleeding Controlled with: Compression and gauze Patient tolerated procedure: Patient tolerated procedure well Post-Debridement Measurements and Additional Note: Post-Debridement Measurements/Treatment - Nurse 1 - General Ulcer Assessment Start: 06/10/23 10:13 Freq: Status: Active Protocol: ONDINA Activity Type Activity Date Activity User E-sign Co-sign Detail Recorded Client Recorded Date Recorded By Document 06/10/23 10:13 DL [id number] 06/10/23 10:24 DL Document 06/17/23 10:12 RB [id number] 06/17/23 10:14 RB Document 06/24/23 10:22 RB [id number] 06/24/23 10:24 RB Document 07/01/23 10:25 RB Desktop 07/01/23 10:29 RB Document 07/08/23 10:26 RB Desktop 07/08/23 10:28 RB 06/10/23 06/17/23 06/24/23 10:13 10:12 10:22 - Today's Visit Information Type of service Follow-up Visit Follow-up Visit Follow-up Visit (Physician/APPLICATIONS SPECIALIST (Physician/APPLICATIONS SPECIALIST (Physician/APPLICATIONS SPECIALIST ) ) ) Arrival Mode Ambulatory, Ambulatory Ambulatory, Walker Walker Transfer Assistance None None None Patient Identification Verified (Name & Yes Yes Yes ) Patient Requires Transmission-Based No No No Precautions Vital Signs Temperature (97.8 F-99.1 F) 98.1 F 96 F L 95.9 F L Temperature Source Temporal Temporal Temporal Pulse Rate (60-100) 69 68 65 Pulse Location Monitor Monitor Monitor Respiratory Rate (12-18) 20 H 18 18 Respiratory rate source Observation Observation Observation Blood Pressure (90/60-120/80) 114/63 116/76 109/57 L Blood Pressure Mean (mm Hg) 80 89 74 Source Monitor Monitor Monitor Position Semi-Fowlers Semi-Fowlers Blood Pressure Location Left Arm Left Arm History Since Last Visit- (Skip if this is Patient's initial visit) Have you changed medications since your No No No last visit? Any new allergies or adverse reactions No No No Had a fall/change in ADL's that may No No No increase risk of falls Signs or symptoms of abuse and/or No No No neglect since last visit Have you been in the hospital since your No No No last visit? Has dressing in place as prescribed Yes Yes Yes Has compression in place as prescribed Yes Yes Yes Has offloadiing in place as prescribed N/A No No Experienced any changes in pain level or No No No management Pain Scale: 0-10 Numeric Is Patient Pain Free? Yes Yes Yes 07/01/23 07/08/23 10:25 10:26 WC - Today's Visit Information Type of service Follow-up Visit Follow-up Visit (Physician/APPLICATIONS SPECIALIST (Physician/APPLICATIONS SPECIALIST ) ) Arrival Mode Ambulatory, Ambulatory, Walker Walker Transfer Assistance None None Patient Identification Verified (Name & Yes Yes ) Patient Requires Transmission-Based No No Precautions Vital Signs Temperature (97.8 F-99.1 F) 96.2 F L 97 F L Temperature Source Temporal Temporal Pulse Rate (60-100) 60 60 Pulse Location Monitor Monitor Respiratory Rate (12-18) 18 18 Respiratory rate source Observation Observation Blood Pressure (90/60-120/80) 115/70 109/61 Blood Pressure Mean (mm Hg) 85 77 Source Monitor Monitor Position Semi-Fowlers Semi-Fowlers Blood Pressure Location Left Arm Left Arm History Since Last Visit- (Skip if this is Patient's initial visit) Have you changed medications since your No No last visit? Any new allergies or adverse reactions No No Had a fall/change in ADL's that may No No increase risk of falls Signs or symptoms of abuse and/or No No neglect since last visit Have you been in the hospital since your No No last visit? Has dressing in place as prescribed Yes Yes Has compression in place as prescribed Yes Yes Has offloadiing in place as prescribed No No Experienced any changes in pain level or No No management Pain Scale: 0-10 Numeric Is Patient Pain Free? Yes No - Nurse 1 - General Ulcer Measurement Start: 06/10/23 10:13 Freq: Status: Active Protocol: Activity Type Activity Date Activity User E-sign Co-sign Detail Recorded Client Recorded Date Recorded By Document 06/10/23 10:13 DL [id number] 06/10/23 10:24 DL Document 06/17/23 10:12 RB [id number] 06/17/23 10:14 RB Document 06/24/23 10:22 RB [id number] 06/24/23 10:24 RB Document 07/01/23 10:25 RB Desktop 07/01/23 10:29 RB Document 07/08/23 10:26 RB Desktop 07/08/23 10:28 RB 06/10/23 06/17/23 06/24/23 10:13 10:12 10:22 Wound Center Nurse 1 #18 Left medial LE cluster -Combined with other wound No No -Current Size (cm) - Length 10.4 11 11.5 -Current Size (cm) - Width 17 17.5 18 -Current Size (cm) - Depth 0.3 0.1 0.3 -Total Square Cm 176.8 192.5 207.0 -Photo Taken Yes Yes -Tunneling No No -Undermining/Tunneling No No -Circular Undermining No No -Exudate Amt Large Large Large -Exudate Type Serosanguineous Serosanguineous Serosanguineous -Wound Margin Distinct, Distinct, Distinct, Outline Outline Outline Attached Attached Attached -Granulation Amt Medium (34-66%) Medium (34-66%) Medium (34-66%) -Granulation Quality Red Lingle Lingle -Slough/Fibrin Yes Yes -Necrosis Amt Medium (34-66%) Medium (34-66%) Medium (34-66%) -Necrotic Tissue Type Adherent Slough Adherent Slough Adherent Slough -Structure Exposed N/A N/A N/A -Texture (Marie-wound Skin Appearance) Scarring Assessed, Assessed, Excoriation Excoriation -Moisture (Marie-wound Skin Appearance) Maceration Assessed Assessed -Color (Marie-wound Skin Appearance) Hemosiderin Assessed Assessed, Staining Erythema -Temperature (Marie-wound Skin No Abnormality No Abnormality No Abnormality Appearance) (Pt Warm) (Pt Warm) (Pt Warm) -Tenderness on Palpation (Marie-wound No No No Skin Appearance) -Ulcer Cleansing Soap and Water Wound Cleanser Wound Cleanser -Foul Odor after Cleansing No No No -Anesthetic Used 4% Lidocaine 4% Lidocaine 4% Lidocaine Solution Solution,5% Solution,5% Lidocaine Gel Lidocaine Gel Lower Limb Edema Present Yes Yes Left Calf (cm) 40 44 42 Left Ankle (cm) 29.4 32.5 30 07/01/23 07/08/23 10:25 10:26 Wound Center Nurse 1 #18 Left medial LE cluster -Combined with other wound No No -Current Size (cm) - Length 12 11.5 -Current Size (cm) - Width 18 17 -Current Size (cm) - Depth 0.2 0.2 -Total Square Cm 216 195.5 -Photo Taken -Tunneling No No -Undermining/Tunneling No No -Circular Undermining No No -Exudate Amt Medium Large -Exudate Type Serosanguineous Serosanguineous -Wound Margin Distinct, Distinct, Outline Outline Attached Attached -Granulation Amt Medium (34-66%) Large (67-100%) -Granulation Quality Lingle Lingle,Red -Slough/Fibrin Yes Yes -Necrosis Amt Medium (34-66%) Medium (34-66%) -Necrotic Tissue Type Adherent Slough Adherent Slough -Structure Exposed N/A N/A -Texture (Marie-wound Skin Appearance) Assessed, Assessed, Excoriation Excoriation -Moisture (Marie-wound Skin Appearance) Assessed Assessed -Color (Marie-wound Skin Appearance) Assessed Assessed -Temperature (Marie-wound Skin No Abnormality No Abnormality Appearance) (Pt Warm) (Pt Warm) -Tenderness on Palpation (Marie-wound No No Skin Appearance) -Ulcer Cleansing Wound Cleanser Wound Cleanser -Foul Odor after Cleansing No No -Anesthetic Used 4% Lidocaine 4% Lidocaine Solution,5% Solution,5% Lidocaine Gel Lidocaine Gel Lower Limb Edema Present Yes Yes Left Calf (cm) 45 44.5 Left Ankle (cm) 30 31 WC - Nurse 2 - General Ulcer CM Notes Start: 06/10/23 10:13 Freq: Status: Active Protocol: Activity Type Activity Date Activity User E-sign Co-sign Detail Recorded Client Recorded Date Recorded By Document 06/10/23 13:14 PL [id number] 06/10/23 13:18 PL Document 06/17/23 12:41 PL [id number] 06/17/23 12:42 PL Document 06/24/23 13:36 [id number] 06/24/23 13:43 PL Document 07/01/23 13:09 [id number] 07/01/23 13:11 PL Document 07/08/23 12:39 [id number] 07/08/23 12:40 06/10/23 06/17/23 06/24/23 13:14 12:41 13:36 Wound Center Nurse 2 #18 Left medial LE cluster -Time 10:32 10:20 10:41 -Correct Patient Yes Yes Yes -Correct Side, Site, Position Yes Yes Yes -Correct Procedure Yes Yes Yes -Procedure Performed Yes Yes Yes -Type of Procedure Debridement Debridement Debridement -Clinical Debridement Subcutaneous Subcutaneous Subcutaneous -Tissue Removed Subcutaneous Subcutaneous Subcutaneous -Post Debridement (cm) - Length 7.0 6.8 10.5 -Post Debridement (cm) - Width 13.0 13.0 17.5 -Post Debridement (cm) - Depth 0.2 0.2 0.2 -Total Square (Post) (cm) 91.00 88.40 183.75 -Area of Debridement (cm) - Length 7.0 6.8 10.5 -Area of Debridement (cm) - Width 13.0 13.0 17.5 -Total Square (Area) (cm) 91.00 88.40 183.75 -Tunneling No No No -Undermining/Tunneling No No No -Circular Undermining No No No -Wound/Ulcer Outcome Not Healed Not Healed Not Healed -Ulcer Cleansing Rinsed/ Rinsed/ Rinsed/ Irrigated with Irrigated with Irrigated with Saline Saline Saline -Foul Odor after Cleansing No No No -Bioengineered Tissue Yes No No -Type of Bioengineered Tissue Epifix Mesh -Expiration Date 02/08/28 -Product Lot Number [id number] -Percent Used 100 -Bleeding Controlled with Pressure Pressure -Treatment Response Procedure Procedure Tolerated Well Tolerated Well -Debridement - Subq, 1st 20sq cm No Yes Yes -Debridement, SubQ, ea addt'l 20sq cm 4 9 or part thereof -Apply Skin Sub - 1st 25 sq cm - Legs 1 -Apply Skin Sub - each addt'l 25 sq cm 3 - Legs -Epifix Mesh (per sq cm) 11 Pain Scale: 0-10 Numeric Is Patient Pain Free? Yes Yes Yes 07/01/23 07/08/23 13:09 12:39 Wound Center Nurse 2 #18 Left medial LE cluster -Time 11:00 10:50 -Correct Patient Yes Yes -Correct Side, Site, Position Yes Yes -Correct Procedure Yes Yes -Procedure Performed Yes Yes -Type of Procedure Debridement Debridement -Clinical Debridement Subcutaneous Subcutaneous -Tissue Removed Subcutaneous Subcutaneous -Post Debridement (cm) - Length 12.0 10.5 -Post Debridement (cm) - Width 15.0 16 -Post Debridement (cm) - Depth 0.3 0.2 -Total Square (Post) (cm) 180.00 168.0 -Area of Debridement (cm) - Length 12 10.5 -Area of Debridement (cm) - Width 15 16 -Total Square (Area) (cm) 180 168.0 -Tunneling No No -Undermining/Tunneling No No -Circular Undermining No -Wound/Ulcer Outcome Not Healed Not Healed -Ulcer Cleansing Rinsed/ Rinsed/ Irrigated with Irrigated with Saline Saline -Foul Odor after Cleansing No No -Bioengineered Tissue No No -Type of Bioengineered Tissue -Expiration Date -Product Lot Number -Percent Used -Bleeding Controlled with Pressure Pressure -Treatment Response Procedure Procedure Tolerated Well Tolerated Well -Debridement - Subq, 1st 20sq cm Yes Yes -Debridement, SubQ, ea addt'l 20sq cm 8 8 or part thereof -Apply Skin Sub - 1st 25 sq cm - Legs -Apply Skin Sub - each addt'l 25 sq cm - Legs -Epifix Mesh (per sq cm) Pain Scale: 0-10 Numeric Is Patient Pain Free? Yes Yes - Nurse 3 - General Ulcer D/C NN Start: 06/10/23 10:13 Freq: Status: Active Protocol: Activity Type Activity Date Activity User E-sign Co-sign Detail Recorded Client Recorded Date Recorded By Document 06/10/23 11:00 RB [id number] 06/10/23 11:01 RB Edit Result 06/10/23 11:00 RB (1) [id number] 06/10/23 11:03 RB Document 06/17/23 11:09 RB [id number] 06/17/23 11:09 RB Document 06/24/23 11:14 RB [id number] 06/24/23 11:15 RB Document 07/01/23 11:47 RB Desktop 07/01/23 11:48 RB Document 07/08/23 12:39 RB [id number] 07/08/23 12:40 RB (1) #18 Left medial LE cluster - Optilok 6.5x10 2 => 1 06/10/23 06/17/23 06/24/23 11:00 11:09 11:14 Wound Care Center Nurse 3 #18 Left medial LE cluster -Ulcer Cleansing Rinsed/ Rinsed/ Rinsed/ Irrigated with Irrigated with Irrigated with Saline Saline Saline -Primary Dressing Applied Aquacel Extra, Aquacel Extra Aquacel Extra, Optilok 6.5x10 Optilok 8x12 -Other Dressing abd -Primary Dressing Covered/Secured with Dry Gauze & Dry Gauze & Dry Gauze & Roll Gauze, Roll Gauze, Roll Gauze, Secured with Secured with Secured with Tape Tape Tape -Aquacel Extra 1 2 2 -Aquacel AG 4x4 -Optilok 6.5x10 1 -Optilok 8x12 1 Right -Tubular Bandage Single Layer Single Layer -Size of Tubigrip Used Size E Size E -Size D ($) -Size E ($) 1 1 -Other pt own single layer tubigrip Left -Tubular Bandage Single Layer Single Layer Single Layer -Size of Tubigrip Used Size E Size E Size E -Size D ($) -Size E ($) 1 1 1 Treatment Response Procedure Procedure Procedure Tolerated Well Tolerated Well Tolerated Well Pain Scale: 0-10 Numeric Is Patient Pain Free? Yes Yes Yes Teaching: Wound Center Compression Wraps & Stockings -Person Taught Patient -Teaching Method Discussion, Demonstration -Response to teaching Verbalize understanding WC - Visit Discharge Discharge Condition Stable Stable Stable Ambulatory Status Ambulatory, Ambulatory, Ambulatory, Walker Walker Walker Transportation Private Auto Private Auto Private Auto Medication Reconcilliation completed & No No No provided to patient/care provider Clinical Summary of Care Provided Yes Yes Yes 07/01/23 07/08/23 11:47 12:39 Wound Care Center Nurse 3 #18 Left medial LE cluster -Ulcer Cleansing Rinsed/ Irrigated with Saline -Primary Dressing Applied Aquacel AG 4x4, Optilok 8x12 Optilok 8x12 -Other Dressing aquacel ag -Primary Dressing Covered/Secured with Dry Gauze & Dry Gauze & Roll Gauze, Roll Gauze, Secured with Secured with Tape Tape -Aquacel Extra -Aquacel AG 4x4 2 -Optilok 6.5x10 -Optilok 8x12 1 1 Right -Tubular Bandage Single Layer Single Layer -Size of Tubigrip Used Size E Size D -Size D ($) 2 -Size E ($) 1 -Other Left -Tubular Bandage Single Layer Single Layer -Size of Tubigrip Used Size E Size D -Size D ($) 2 -Size E ($) 1 Treatment Response Procedure Tolerated Well Pain Scale: 0-10 Numeric Is Patient Pain Free? Yes Yes Teaching: Wound Center Compression Wraps & Stockings -Person Taught -Teaching Method -Response to teaching WC - Visit Discharge Discharge Condition Stable Stable Ambulatory Status Ambulatory, Ambulatory, Walker Walker Transportation Private Auto Private Auto Medication Reconcilliation completed & No No provided to patient/care provider Clinical Summary of Care Provided Yes Yes Assessment/Plan Assessment/Plan (1) Ulcer of left lower extremity with fat layer exposed: CODE(S): L97.922 - Non-pressure chronic ulcer of unspecified part of left lower leg with fat layer exposed (2) Venous insufficiency: CODE(S): I87.2 - Venous insufficiency (chronic) (peripheral) (3) Edema: CODE(S): R60.9 - Edema, unspecified QUALIFIERS: Edema type: unspecified Qualified Code(s): R60.9 - Edema, unspecified (4) History of CVA (cerebrovascular accident): CODE(S): Z86.73 - Personal history of transient ischemic attack (TIA), andcerebral infarction without residual deficits (5) 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 At home wound-care instructions: Will apply Aquacel Ag to the wound bed. Will cover with super absorber and KISHORE bandage changed daily for heavy drainage. Consider Dakins. Will plan to assess and repeat culture in 1-2 weeks after usingAquacel Ag before deciding on Dakins or antibiotic treatment. Off-loading: The patient was instructed to avoid pressure and friction on the affected areas. Reposition every 2 hours at minimum. Avoid prolonged standing and/or dangling of legs. When seated, feet should be elevated at chest level. Frequent ambulation is encouraged. Encouraged lymphedema pump use. Diet: Patient encouraged to increase protein intake while taking caution to avoid high carbohydrate and/or sugar intake. Labs/cultures/imaging: Wound culture showed 1+ Pseudomonas that is sensitive to antibiotics. Follow-up: Return in 1 week for wound care follow up and have secondary dressingchanged by home health Tuesday and Tuesday. Return sooner or report to the emergency room should symptoms worsen, or new symptoms arise. Note: [employer] speech recognition hair tinter software was used to create portions of this document. Sound-alike and misspelled words, as well as other hair tinter errors may be contained in the documentation. 07/08/23 1251 <Electronically signed by Patricia Garcia DO> Cosigner Signature (if applicable): CC: ~ Signed [facility] Work Phone: [phone] 373-671709-22-2023 Progress note Author Patricia Garcia [facility] July 01, 2023 2:18pm Note Date/Time July 01, 2023 2:18pm [facility] [address] [place] [id number] Progress Note - Wound Care 07/01/23 1416 MR#: [id number] Acct: [id number] Name: ESTEBAN URBINA Rep #:[id number] : 1955 68 From: Patricia Garcia DO PCP: Dr. Patricia Garcia DO Status:REG RCR Location: History of Present Illness Date of Service: 07/01/23 Chief Complaint: venous ulcers of left lower extremity History of Wound: Mauricio is a 67 yo gentleman who is here today for evaluation of ulcers to to his bilateral lower legs. [facility]. The left LE ulcer started after he developed increased swelling and blisters of left leg in October and the right leg started sometime at the end of October. He was seen at PCP's office a culture was taken and it was resistant to several antibiotics. He was treated initially with Levaquin but had myalgias and then was treated with doxycycline which he finished 2 days ago. He denies improvementand is having swelling to his left calf and thigh. He has been having swelling to both lower extremities for many years and it has worsened over the last few months. He has not been compliant with compression. He has had increased pain especially in the left leg. He has clear yellow drainage and redness without odor or warmth. He is anti-coagulated on coumadin. He has been washing with Dial soap and witch ifrah. He had been using Collagen at times and using Calcium Alginate and covering with ABD pads during October. He was treated with 3M compression and Aquacel Ag. He was referred to the wound center for ongoing treatment. His ulcers have moderate to heavy drainage. He was recently hospitalized for cellulitis and edema for the last 10 days. He was in the hospital from 11/30/22 until 12/09/22 for treatment of cellulitis and edema. He underwent treatment with Vancomycin and IV lasix and compression. Discharged on 12/09/22 and is currently in the Skilled [facility] of [facility]. He returned to his assisted living apartment on Tuesday12/21/22. Subjective Subjective Ulcers are relatively unchanged but seem to be decreasing in size through islands between ulcers. Edema remains better. He did use pumps. Denies fever, chills, increased pain or increased drainage. Objective Data Objective Data Vital Signs: Vital Signs Temp Pulse Resp BP 96.2 F L 60 18 115/70 07/01/23 10:25 07/01/23 10:25 07/01/23 10:25 07/01/23 10:25 Physical Exam Const alert, oriented x3 and no apparent distress General Appearance: cooperative and comfortable HEENT normocephalic and head/scalp atraumatic Lymph Lymphatic: lymphedema moderate Resp normal respiratory effort Effort and Inspection: able to speak in complete sentences Cardio regular rate and regular rhythm Extremity General Extremity: edema bilateral lower extremity Details: severe Skin Wounds: wounds noted Wound Narrative: as in clinical panel Psych mental status grossly normal, thought process normal, cooperative and affect normal Debridement Note Debridement Note Wound debrided: left medial LE cluster Laterality: Left Type of Debridement: Excisional debridement Anesthesia Used: 4% Lidocaine Solution and 5% Lidocaine Gel Depth: Down to and including healthy tissue and in the subcutaneous layer Percentage of wound debrided: 100 Instrument Used: - (misonix ultrasonic debridement) Tissue Removed: Yellow slough, devitalized tissue Severity: Fat Layer Exposed Amount of bleeding with debridement: Mild Bleeding Controlled with: Compression and gauze Patient tolerated procedure: Patient tolerated procedure well Post-Debridement Measurements and Additional Note: Post-Debridement Measurements/Treatment - Nurse 1 - General Ulcer Assessment Start: 06/10/23 10:13 Freq: Status: Active Protocol: ONDINA Activity Type Activity Date Activity User E-sign Co-sign Detail Recorded Client Recorded Date Recorded By Document 06/10/23 10:13 DL [id number] 06/10/23 10:24 DL Document 06/17/23 10:12 RB [id number] 06/17/23 10:14 RB Document 06/24/23 10:22 RB [id number] 06/24/23 10:24 RB Document 07/01/23 10:25 RB Desktop 07/01/23 10:29 RB 06/10/23 06/17/23 06/24/23 10:13 10:12 10:22 - Today's Visit Information Type of service Follow-up Visit Follow-up Visit Follow-up Visit (Physician/APPLICATIONS SPECIALIST (Physician/APPLICATIONS SPECIALIST (Physician/APPLICATIONS SPECIALIST ) ) ) Arrival Mode Ambulatory, Ambulatory Ambulatory, Walker Walker Transfer Assistance None None None Patient Identification Verified (Name & Yes Yes Yes ) Patient Requires Transmission-Based No No No Precautions Vital Signs Temperature (97.8 F-99.1 F) 98.1 F 96 F L 95.9 F L Temperature Source Temporal Temporal Temporal Pulse Rate (60-100) 69 68 65 Pulse Location Monitor Monitor Monitor Respiratory Rate (12-18) 20 H 18 18 Respiratory rate source Observation Observation Observation Blood Pressure (90/60-120/80) 114/63 116/76 109/57 L Blood Pressure Mean (mm Hg) 80 89 74 Source Monitor Monitor Monitor Position Semi-Fowlers Semi-Fowlers Blood Pressure Location Left Arm Left Arm History Since Last Visit- (Skip if this is Patient's initial visit) Have you changed medications since your No No No last visit? Any new allergies or adverse reactions No No No Had a fall/change in ADL's that may No No No increase risk of falls Signs or symptoms of abuse and/or No No No neglect since last visit Have you been in the hospital since your No No No last visit? Has dressing in place as prescribed Yes Yes Yes Has compression in place as prescribed Yes Yes Yes Has offloadiing in place as prescribed N/A No No Experienced any changes in pain level or No No No management Pain Scale: 0-10 Numeric Is Patient Pain Free? Yes Yes Yes 07/01/23 10:25 WC - Today's Visit Information Type of service Follow-up Visit (Physician/APPLICATIONS SPECIALIST ) Arrival Mode Ambulatory, Walker Transfer Assistance None Patient Identification Verified (Name & Yes ) Patient Requires Transmission-Based No Precautions Vital Signs Temperature (97.8 F-99.1 F) 96.2 F L Temperature Source Temporal Pulse Rate (60-100) 60 Pulse Location Monitor Respiratory Rate (12-18) 18 Respiratory rate source Observation Blood Pressure (90/60-120/80) 115/70 Blood Pressure Mean (mm Hg) 85 Source Monitor Position Semi-Fowlers Blood Pressure Location Left Arm History Since Last Visit- (Skip if this is Patient's initial visit) Have you changed medications since your No last visit? Any new allergies or adverse reactions No Had a fall/change in ADL's that may No increase risk of falls Signs or symptoms of abuse and/or No neglect since last visit Have you been in the hospital since your No last visit? Has dressing in place as prescribed Yes Has compression in place as prescribed Yes Has offloadiing in place as prescribed No Experienced any changes in pain level or No management Pain Scale: 0-10 Numeric Is Patient Pain Free? Yes - Nurse 1 - General Ulcer Measurement Start: 06/10/23 10:13 Freq: Status: Active Protocol: Activity Type Activity Date Activity User E-sign Co-sign Detail Recorded Client Recorded Date Recorded By Document 06/10/23 10:13 DL [id number] 06/10/23 10:24 DL Document 06/17/23 10:12 RB [id number] 06/17/23 10:14 RB Document 06/24/23 10:22 RB [id number] 06/24/23 10:24 RB Document 07/01/23 10:25 RB Desktop 07/01/23 10:29 RB 06/10/23 06/17/23 06/24/23 10:13 10:12 10:22 Wound Center Nurse 1 #18 Left medial LE cluster -Combined with other wound No No -Current Size (cm) - Length 10.4 11 11.5 -Current Size (cm) - Width 17 17.5 18 -Current Size (cm) - Depth 0.3 0.1 0.3 -Total Square Cm 176.8 192.5 207.0 -Photo Taken Yes Yes -Tunneling No No -Undermining/Tunneling No No -Circular Undermining No No -Exudate Amt Large Large Large -Exudate Type Serosanguineous Serosanguineous Serosanguineous -Wound Margin Distinct, Distinct, Distinct, Outline Outline Outline Attached Attached Attached -Granulation Amt Medium (34-66%) Medium (34-66%) Medium (34-66%) -Granulation Quality Red Lingle Lingle -Slough/Fibrin Yes Yes -Necrosis Amt Medium (34-66%) Medium (34-66%) Medium (34-66%) -Necrotic Tissue Type Adherent Slough Adherent Slough Adherent Slough -Structure Exposed N/A N/A N/A -Texture (Marie-wound Skin Appearance) Scarring Assessed, Assessed, Excoriation Excoriation -Moisture (Marie-wound Skin Appearance) Maceration Assessed Assessed -Color (Marie-wound Skin Appearance) Hemosiderin Assessed Assessed, Staining Erythema -Temperature (Marie-wound Skin No Abnormality No Abnormality No Abnormality Appearance) (Pt Warm) (Pt Warm) (Pt Warm) -Tenderness on Palpation (Marie-wound No No No Skin Appearance) -Ulcer Cleansing Soap and Water Wound Cleanser Wound Cleanser -Foul Odor after Cleansing No No No -Anesthetic Used 4% Lidocaine 4% Lidocaine 4% Lidocaine Solution Solution,5% Solution,5% Lidocaine Gel Lidocaine Gel Lower Limb Edema Present Yes Yes Left Calf (cm) 40 44 42 Left Ankle (cm) 29.4 32.5 30 07/01/23 10:25 Wound Center Nurse 1 #18 Left medial LE cluster -Combined with other wound No -Current Size (cm) - Length 12 -Current Size (cm) - Width 18 -Current Size (cm) - Depth 0.2 -Total Square Cm 216 -Photo Taken -Tunneling No -Undermining/Tunneling No -Circular Undermining No -Exudate Amt Medium -Exudate Type Serosanguineous -Wound Margin Distinct, Outline Attached -Granulation Amt Medium (34-66%) -Granulation Quality Lingle -Slough/Fibrin Yes -Necrosis Amt Medium (34-66%) -Necrotic Tissue Type Adherent Slough -Structure Exposed N/A -Texture (Marie-wound Skin Appearance) Assessed, Excoriation -Moisture (Marie-wound Skin Appearance) Assessed -Color (Marie-wound Skin Appearance) Assessed -Temperature (Marie-wound Skin No Abnormality Appearance) (Pt Warm) -Tenderness on Palpation (Marie-wound No Skin Appearance) -Ulcer Cleansing Wound Cleanser -Foul Odor after Cleansing No -Anesthetic Used 4% Lidocaine Solution,5% Lidocaine Gel Lower Limb Edema Present Yes Left Calf (cm) 45 Left Ankle (cm) 30 WC - Nurse 2 - General Ulcer CM Notes Start: 06/10/23 10:13 Freq: Status: Active Protocol: Activity Type Activity Date Activity User E-sign Co-sign Detail Recorded Client Recorded Date Recorded By Document 06/10/23 13:14 PL [id number] 06/10/23 13:18 PL Document 06/17/23 12:41 PL [id number] 06/17/23 12:42 PL Document 06/24/23 13:36 PL [id number] 06/24/23 13:43 PL Document 07/01/23 13:09 PL [id number] 07/01/23 13:11 PL 06/10/23 06/17/23 06/24/23 13:14 12:41 13:36 Wound Center Nurse 2 #18 Left medial LE cluster -Time 10:32 10:20 10:41 -Correct Patient Yes Yes Yes -Correct Side, Site, Position Yes Yes Yes -Correct Procedure Yes Yes Yes -Procedure Performed Yes Yes Yes -Type of Procedure Debridement Debridement Debridement -Clinical Debridement Subcutaneous Subcutaneous Subcutaneous -Tissue Removed Subcutaneous Subcutaneous Subcutaneous -Post Debridement (cm) - Length 7.0 6.8 10.5 -Post Debridement (cm) - Width 13.0 13.0 17.5 -Post Debridement (cm) - Depth 0.2 0.2 0.2 -Total Square (Post) (cm) 91.00 88.40 183.75 -Area of Debridement (cm) - Length 7.0 6.8 10.5 -Area of Debridement (cm) - Width 13.0 13.0 17.5 -Total Square (Area) (cm) 91.00 88.40 183.75 -Tunneling No No No -Undermining/Tunneling No No No -Circular Undermining No No No -Wound/Ulcer Outcome Not Healed Not Healed Not Healed -Ulcer Cleansing Rinsed/ Rinsed/ Rinsed/ Irrigated with Irrigated with Irrigated with Saline Saline Saline -Foul Odor after Cleansing No No No -Bioengineered Tissue Yes No No -Type of Bioengineered Tissue Epifix Mesh -Expiration Date 02/08/28 -Product Lot Number [id number] -Percent Used 100 -Bleeding Controlled with Pressure Pressure -Treatment Response Procedure Procedure Tolerated Well Tolerated Well -Debridement - Subq, 1st 20sq cm No Yes Yes -Debridement, SubQ, ea addt'l 20sq cm 4 9 or part thereof -Apply Skin Sub - 1st 25 sq cm - Legs 1 -Apply Skin Sub - each addt'l 25 sq cm 3 - Legs -Epifix Mesh (per sq cm) 11 Pain Scale: 0-10 Numeric Is Patient Pain Free? Yes Yes Yes 07/01/23 13:09 Wound Center Nurse 2 #18 Left medial LE cluster -Time 11:00 -Correct Patient Yes -Correct Side, Site, Position Yes -Correct Procedure Yes -Procedure Performed Yes -Type of Procedure Debridement -Clinical Debridement Subcutaneous -Tissue Removed Subcutaneous -Post Debridement (cm) - Length 12.0 -Post Debridement (cm) - Width 15.0 -Post Debridement (cm) - Depth 0.3 -Total Square (Post) (cm) 180.00 -Area of Debridement (cm) - Length 12 -Area of Debridement (cm) - Width 15 -Total Square (Area) (cm) 180 -Tunneling No -Undermining/Tunneling No -Circular Undermining No -Wound/Ulcer Outcome Not Healed -Ulcer Cleansing Rinsed/ Irrigated with Saline -Foul Odor after Cleansing No -Bioengineered Tissue No -Type of Bioengineered Tissue -Expiration Date -Product Lot Number -Percent Used -Bleeding Controlled with Pressure -Treatment Response Procedure Tolerated Well -Debridement - Subq, 1st 20sq cm Yes -Debridement, SubQ, ea addt'l 20sq cm 8 or part thereof -Apply Skin Sub - 1st 25 sq cm - Legs -Apply Skin Sub - each addt'l 25 sq cm - Legs -Epifix Mesh (per sq cm) Pain Scale: 0-10 Numeric Is Patient Pain Free? Yes WC - Nurse 3 - General Ulcer D/C NN Start: 06/10/23 10:13 Freq: Status: Active Protocol: Activity Type Activity Date Activity User E-sign Co-sign Detail Recorded Client Recorded Date Recorded By Document 06/10/23 11:00 RB [id number] 06/10/23 11:01 RB Edit Result 06/10/23 11:00 RB (1) [id number] 06/10/23 11:03 RB Document 06/17/23 11:09 RB [id number] 06/17/23 11:09 RB Document 06/24/23 11:14 RB [id number] 06/24/23 11:15 RB Document 07/01/23 11:47 RB Desktop 07/01/23 11:48 RB (1) #18 Left medial LE cluster - Optilok 6.5x10 2 => 1 06/10/23 06/17/23 06/24/23 11:00 11:09 11:14 Wound Care Center Nurse 3 #18 Left medial LE cluster -Ulcer Cleansing Rinsed/ Rinsed/ Rinsed/ Irrigated with Irrigated with Irrigated with Saline Saline Saline -Primary Dressing Applied Aquacel Extra, Aquacel Extra Aquacel Extra, Optilok 6.5x10 Optilok 8x12 -Other Dressing abd -Primary Dressing Covered/Secured with Dry Gauze & Dry Gauze & Dry Gauze & Roll Gauze, Roll Gauze, Roll Gauze, Secured with Secured with Secured with Tape Tape Tape -Aquacel Extra 1 2 2 -Aquacel AG 4x4 -Optilok 6.5x10 1 -Optilok 8x12 1 Right -Tubular Bandage Single Layer Single Layer -Size of Tubigrip Used Size E Size E -Size E ($) 1 1 -Other pt own single layer tubigrip Left -Tubular Bandage Single Layer Single Layer Single Layer -Size of Tubigrip Used Size E Size E Size E -Size E ($) 1 1 1 Treatment Response Procedure Procedure Procedure Tolerated Well Tolerated Well Tolerated Well Pain Scale: 0-10 Numeric Is Patient Pain Free? Yes Yes Yes Teaching: Wound Center Compression Wraps & Stockings -Person Taught Patient -Teaching Method Discussion, Demonstration -Response to teaching Verbalize understanding WC - Visit Discharge Discharge Condition Stable Stable Stable Ambulatory Status Ambulatory, Ambulatory, Ambulatory, Walker Walker Walker Transportation Private Auto Private Auto Private Auto Medication Reconcilliation completed & No No No provided to patient/care provider Clinical Summary of Care Provided Yes Yes Yes 07/01/23 11:47 Wound Care Center Nurse 3 #18 Left medial LE cluster -Ulcer Cleansing Rinsed/ Irrigated with Saline -Primary Dressing Applied Aquacel AG 4x4, Optilok 8x12 -Other Dressing -Primary Dressing Covered/Secured with Dry Gauze & Roll Gauze, Secured with Tape -Aquacel Extra -Aquacel AG 4x4 2 -Optilok 6.5x10 -Optilok 8x12 1 Right -Tubular Bandage Single Layer -Size of Tubigrip Used Size E -Size E ($) 1 -Other Left -Tubular Bandage Single Layer -Size of Tubigrip Used Size E -Size E ($) 1 Treatment Response Procedure Tolerated Well Pain Scale: 0-10 Numeric Is Patient Pain Free? Yes Teaching: Wound Center Compression Wraps & Stockings -Person Taught -Teaching Method -Response to teaching WC - Visit Discharge Discharge Condition Stable Ambulatory Status Ambulatory, Walker Transportation Private Auto Medication Reconcilliation completed & No provided to patient/care provider Clinical Summary of Care Provided Yes Assessment/Plan Assessment/Plan (1) Ulcer of left lower extremity with fat layer exposed: CODE(S): L97.922 - Non-pressure chronic ulcer of unspecified part of left lower leg with fat layer exposed (2) Venous insufficiency: CODE(S): I87.2 - Venous insufficiency (chronic) (peripheral) (3) Edema: CODE(S): R60.9 - Edema, unspecified QUALIFIERS: Edema type: unspecified Qualified Code(s): R60.9 - Edema, unspecified (4) History of CVA (cerebrovascular accident): CODE(S): Z86.73 - Personal history of transient ischemic attack (TIA), andcerebral infarction without residual deficits (5) 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 At home wound-care instructions: Will apply Aquacel Ag to the wound bed. Will cover with super absorber and KISHORE bandage changed daily for heavy drainage. Consider Dakins. Off-loading: The patient was instructed to avoid pressure and friction on the affected areas. Reposition every 2 hours at minimum. Avoid prolonged standing and/or dangling of legs. When seated, feet should be elevated at chest level. Frequent ambulation is encouraged. Encouraged lymphedema pump use. Diet: Patient encouraged to increase protein intake while taking caution to avoid high carbohydrate and/or sugar intake. Labs/cultures/imaging: Wound culture showed 1+ Pseudomonas that is resistant to oral antibiotics. Wound culture showed rare growth on 05/13/23. Follow-up: Return in 1 week for wound care follow up and have secondary dressingchanged by home health Tuesday and Tuesday. Return sooner or report to the emergency room should symptoms worsen, or new symptoms arise. Note: [employer] speech recognition hair tinter software was used to create portions of this document. Sound-alike and misspelled words, as well as other hair tinter errors may be contained in the documentation. 07/01/23 1418 <Electronically signed by Patricia Garcia DO> Cosigner Signature (if applicable): CC: ~ Signed [facility] Work Phone: [phone] Progress note Author Patricia Garcia [facility] June 24, 2023 1:04pm Note Date/Time June 24, 2023 1:04pm [facility] [address] [place] [id number] Progress Note - Wound Care 06/24/23 1302 MR#: [id number] Acct: [id number] Name: ESTEBAN URBINA Rep #:[id number] : 1955 68 From: Patricia Garcia DO PCP: Dr. Patricia Garcia DO Status:REG RCR Location: History of Present Illness Date of Service: 06/24/23 Chief Complaint: venous ulcers of left lower extremity History of Wound: Mauricio is a 67 yo gentleman who is here today for evaluation of ulcers to to his bilateral lower legs. [facility]. The left LE ulcer started after he developed increased swelling and blisters of left leg in October and the right leg started sometime at the end of October. He was seen at PCP's office a culture was taken and it was resistant to several antibiotics. He was treated initially with Levaquin but had myalgias and then was treated with doxycycline which he finished 2 days ago. He denies improvementand is having swelling to his left calf and thigh. He has been having swelling to both lower extremities for many years and it has worsened over the last few months. He has not been compliant with compression. He has had increased pain especially in the left leg. He has clear yellow drainage and redness without odor or warmth. He is anti-coagulated on coumadin. He has been washing with Dial soap and witch ifrah. He had been using Collagen at times and using Calcium Alginate and covering with ABD pads during October. He was treated with 3M compression and Aquacel Ag. He was referred to the wound center for ongoing treatment. His ulcers have moderate to heavy drainage. He was recently hospitalized for cellulitis and edema for the last 10 days. He was in the hospital from 11/30/22 until 12/09/22 for treatment of cellulitis and edema. He underwent treatment with Vancomycin and IV lasix and compression. Discharged on 12/09/22 and is [facility] in [facility] He returned to his assisted living apartment on Tuesday12/21/22. Subjective Subjective Ulcers are relatively unchanged but seem to be decreasing in size through islands between ulcers. Edema remains better. He did use pumps the past 2 weeks. Denies fever, chills, increased pain or increased drainage. Objective Data Objective Data Vital Signs: Vital Signs Temp Pulse Resp BP 95.9 F L 65 18 109/57 L 06/24/23 10:22 06/24/23 10:22 06/24/23 10:06/24/23 10:22 Physical Exam Const alert, oriented x3 and no apparent distress General Appearance: cooperative and comfortable HEENT normocephalic and head/scalp atraumatic Lymph Lymphatic: lymphedema moderate Resp normal respiratory effort Effort and Inspection: able to speak in complete sentences Cardio regular rate and regular rhythm Extremity General Extremity: edema bilateral lower extremity Details: severe Skin Wounds: wounds noted Wound Narrative: as in clinical panel Psych mental status grossly normal, thought process normal, cooperative and affect normal Debridement Note Debridement Note Wound debrided: left medial LE cluster Laterality: Left Type of Debridement: Excisional debridement Anesthesia Used: 4% Lidocaine Solution and 5% Lidocaine Gel Depth: Down to and including healthy tissue and in the subcutaneous layer Percentage of wound debrided: 100 Instrument Used: - (misonix ultrasonic debridement) Tissue Removed: Yellow slough, devitalized tissue Severity: Fat Layer Exposed Amount of bleeding with debridement: Mild Bleeding Controlled with: Compression and gauze Patient tolerated procedure: Patient tolerated procedure well Post-Debridement Measurements and Additional Note: Post-Debridement Measurements/Treatment - Nurse 1 - General Ulcer Assessment Start: 06/10/23 10:13 Freq: Status: Active Protocol: [employer] Activity Type Activity Date Activity User E-sign Co-sign Detail Recorded Client Recorded Date Recorded By Document 06/10/23 10:13 DL [id number] 06/10/23 10:24 DL Document 06/17/23 10:12 RB [id number] 06/17/23 10:14 RB Document 06/24/23 10:22 RB [id number] 06/24/23 10:24 RB 06/10/23 06/17/23 06/24/23 10:13 10:12 10:22 - Today's Visit Information Type of service Follow-up Visit Follow-up Visit Follow-up Visit (Physician/APPLICATIONS SPECIALIST (Physician/APPLICATIONS SPECIALIST (Physician/APPLICATIONS SPECIALIST ) ) ) Arrival Mode Ambulatory, Ambulatory Ambulatory, Walker Walker Transfer Assistance None None None Patient Identification Verified (Name & Yes Yes Yes ) Patient Requires Transmission-Based No No No Precautions Vital Signs Temperature (97.8 F-99.1 F) 98.1 F 96 F L 95.9 F L Temperature Source Temporal Temporal Temporal Pulse Rate (60-100) 69 68 65 Pulse Location Monitor Monitor Monitor Respiratory Rate (12-18) 20 H 18 18 Respiratory rate source Observation Observation Observation Blood Pressure (90/60-120/80) 114/63 116/76 109/57 L Blood Pressure Mean (mm Hg) 80 89 74 Source Monitor Monitor Monitor Position Semi-Fowlers Semi-Fowlers Blood Pressure Location Left Arm Left Arm History Since Last Visit- (Skip if this is Patient's initial visit) Have you changed medications since your No No No last visit? Any new allergies or adverse reactions No No No Had a fall/change in ADL's that may No No No increase risk of falls Signs or symptoms of abuse and/or No No No neglect since last visit Have you been in the hospital since your No No No last visit? Has dressing in place as prescribed Yes Yes Yes Has compression in place as prescribed Yes Yes Yes Has offloadiing in place as prescribed N/A No No Experienced any changes in pain level or No No No management Pain Scale: 0-10 Numeric Is Patient Pain Free? Yes Yes Yes WC - Nurse 1 - General Ulcer Measurement Start: 06/10/23 10:13 Freq: Status: Active Protocol: Activity Type Activity Date Activity User E-sign Co-sign Detail Recorded Client Recorded Date Recorded By Document 06/10/23 10:13 DL [id number] 06/10/23 10:24 DL Document 06/17/23 10:12 RB [id number] 06/17/23 10:14 RB Document 06/24/23 10:22 RB [id number] 06/24/23 10:24 RB 06/10/23 06/17/23 06/24/23 10:13 10:12 10:22 Wound Center Nurse 1 #18 Left medial LE cluster -Combined with other wound No No -Current Size (cm) - Length 10.4 11 11.5 -Current Size (cm) - Width 17 17.5 18 -Current Size (cm) - Depth 0.3 0.1 0.3 -Total Square Cm 176.8 192.5 207.0 -Photo Taken Yes Yes -Tunneling No No -Undermining/Tunneling No No -Circular Undermining No No -Exudate Amt Large Large Large -Exudate Type Serosanguineous Serosanguineous Serosanguineous -Wound Margin Distinct, Distinct, Distinct, Outline Outline Outline Attached Attached Attached -Granulation Amt Medium (34-66%) Medium (34-66%) Medium (34-66%) -Granulation Quality Red Lingle Lingle -Slough/Fibrin Yes Yes -Necrosis Amt Medium (34-66%) Medium (34-66%) Medium (34-66%) -Necrotic Tissue Type Adherent Slough Adherent Slough Adherent Slough -Structure Exposed N/A N/A N/A -Texture (Marie-wound Skin Appearance) Scarring Assessed, Assessed, Excoriation Excoriation -Moisture (Marie-wound Skin Appearance) Maceration Assessed Assessed -Color (Marie-wound Skin Appearance) Hemosiderin Assessed Assessed, Staining Erythema -Temperature (Marie-wound Skin No Abnormality No Abnormality No Abnormality Appearance) (Pt Warm) (Pt Warm) (Pt Warm) -Tenderness on Palpation (Marie-wound No No No Skin Appearance) -Ulcer Cleansing Soap and Water Wound Cleanser Wound Cleanser -Foul Odor after Cleansing No No No -Anesthetic Used 4% Lidocaine 4% Lidocaine 4% Lidocaine Solution Solution,5% Solution,5% Lidocaine Gel Lidocaine Gel Lower Limb Edema Present Yes Yes Left Calf (cm) 40 44 42 Left Ankle (cm) 29.4 32.5 30 WC - Nurse 2 - General Ulcer CM Notes Start: 06/10/23 10:13 Freq: Status: Active Protocol: Activity Type Activity Date Activity User E-sign Co-sign Detail Recorded Client Recorded Date Recorded By Document 06/10/23 13:14 PL [id number] 06/10/23 13:18 PL Document 06/17/23 12:41 PL [id number] 06/17/23 12:42 PL 06/10/23 06/17/23 13:14 12:41 Wound Center Nurse 2 #18 Left medial LE cluster -Time 10:32 10:20 -Correct Patient Yes Yes -Correct Side, Site, Position Yes Yes -Correct Procedure Yes Yes -Procedure Performed Yes Yes -Type of Procedure Debridement Debridement -Clinical Debridement Subcutaneous Subcutaneous -Tissue Removed Subcutaneous Subcutaneous -Post Debridement (cm) - Length 7.0 6.8 -Post Debridement (cm) - Width 13.0 13.0 -Post Debridement (cm) - Depth 0.2 0.2 -Total Square (Post) (cm) 91.00 88.40 -Area of Debridement (cm) - Length 7.0 6.8 -Area of Debridement (cm) - Width 13.0 13.0 -Total Square (Area) (cm) 91.00 88.40 -Tunneling No No -Undermining/Tunneling No No -Circular Undermining No No -Wound/Ulcer Outcome Not Healed Not Healed -Ulcer Cleansing Rinsed/ Rinsed/ Irrigated with Irrigated with Saline Saline -Foul Odor after Cleansing No No -Bioengineered Tissue Yes No -Type of Bioengineered Tissue Epifix Mesh -Expiration Date 02/08/28 -Product Lot Number [id number] -Percent Used 100 -Bleeding Controlled with Pressure Pressure -Treatment Response Procedure Procedure Tolerated Well Tolerated Well -Debridement - Subq, 1st 20sq cm No Yes -Debridement, SubQ, ea addt'l 20sq cm 4 or part thereof -Apply Skin Sub - 1st 25 sq cm - Legs 1 -Apply Skin Sub - each addt'l 25 sq cm 3 - Legs -Epifix Mesh (per sq cm) 11 Pain Scale: 0-10 Numeric Is Patient Pain Free? Yes Yes WC - Nurse 3 - General Ulcer D/C NN Start: 06/10/23 10:13 Freq: Status: Active Protocol: Activity Type Activity Date Activity User E-sign Co-sign Detail Recorded Client Recorded Date Recorded By Document 06/10/23 11:00 RB [id number] 06/10/23 11:01 RB Edit Result 06/10/23 11:00 RB (1) [id number] 06/10/23 11:03 RB Document 06/17/23 11:09 RB [id number] 06/17/23 11:09 RB Document 06/24/23 11:14 RB [id number] 06/24/23 11:15 RB (1) #18 Left medial LE cluster - Optilok 6.5x10 2 => 1 06/10/23 06/17/23 06/24/23 11:00 11:09 11:14 Wound Care Center Nurse 3 #18 Left medial LE cluster -Ulcer Cleansing Rinsed/ Rinsed/ Rinsed/ Irrigated with Irrigated with Irrigated with Saline Saline Saline -Primary Dressing Applied Aquacel Extra, Aquacel Extra Aquacel Extra, Optilok 6.5x10 Optilok 8x12 -Other Dressing abd -Primary Dressing Covered/Secured with Dry Gauze & Dry Gauze & Dry Gauze & Roll Gauze, Roll Gauze, Roll Gauze, Secured with Secured with Secured with Tape Tape Tape -Aquacel Extra 1 2 2 -Optilok 6.5x10 1 -Optilok 8x12 1 Right -Tubular Bandage Single Layer Single Layer -Size of Tubigrip Used Size E Size E -Size E ($) 1 1 -Other pt own single layer tubigrip Left -Tubular Bandage Single Layer Single Layer Single Layer -Size of Tubigrip Used Size E Size E Size E -Size E ($) 1 1 1 Treatment Response Procedure Procedure Procedure Tolerated Well Tolerated Well Tolerated Well Pain Scale: 0-10 Numeric Is Patient Pain Free? Yes Yes Yes Teaching: Wound Center Compression Wraps & Stockings -Person Taught Patient -Teaching Method Discussion, Demonstration -Response to teaching Verbalize understanding WC - Visit Discharge Discharge Condition Stable Stable Stable Ambulatory Status Ambulatory, Ambulatory, Ambulatory, Walker Walker Walker Transportation Private Auto Private Auto Private Auto Medication Reconcilliation completed & No No No provided to patient/care provider Clinical Summary of Care Provided Yes Yes Yes Assessment/Plan Assessment/Plan (1) Ulcer of left lower extremity with fat layer exposed: CODE(S): L97.922 - Non-pressure chronic ulcer of unspecified part of left lower leg with fat layer exposed (2) Venous insufficiency: CODE(S): I87.2 - Venous insufficiency (chronic) (peripheral) (3) Edema: CODE(S): R60.9 - Edema, unspecified QUALIFIERS: Edema type: unspecified Qualified Code(s): R60.9 - Edema, unspecified (4) History of CVA (cerebrovascular accident): CODE(S): Z86.73 - Personal history of transient ischemic attack (TIA), andcerebral infarction without residual deficits (5) 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 At home wound-care instructions: Will apply Aquacel Extra to the wound bed. Willcover with super absorber and KISHORE bandage changed Tuesday and Tuesday or daily if needed for excessive drainage. Consider Dakins or Aquacel Extra if odor or increased drainage. Off-loading: The patient was instructed to avoid pressure and friction on the affected areas. Reposition every 2 hours at minimum. Avoid prolonged standing and/or dangling of legs. When seated, feet should be elevated at chest level. Frequent ambulation is encouraged. Encouraged lymphedema pump use. Diet: Patient encouraged to increase protein intake while taking caution to avoid high carbohydrate and/or sugar intake. Labs/cultures/imaging: Wound culture showed 1+ Pseudomonas that is resistant to oral antibiotics. Wound culture showed rare growth on 05/13/23. Follow-up: Return in 1 week for wound care follow up and have secondary dressingchanged by home health Tuesday and Tuesday. Return sooner or report to the emergency room should symptoms worsen, or new symptoms arise. Note: Unirisx speech recognition hair tinter software was used to create portions of this document. Sound-alike and misspelled words, as well as other hair tinter errors may be contained in the documentation. 06/24/23 1304 <Electronically signed by Patricia Garcia DO> Cosigner Signature (if applicable): CC: ~ Signed [facility] Work Phone: [phone] Progress note Author Patricia Garcia [facility] June 17, 2023 11:03am Note Date/Time June 17, 2023 11:03am [facility] [address] [place] [id number] Progress Note - Wound Care 06/17/23 1101 MR#: [id number] Acct: [id number] Name: ESTEBAN URBINA Rep #:[id number] : 1955 67 From: Patricia Garcai DO PCP: Dr. Patricia Garcia DO Status:REG R Location: History of Present Illness Date of Service: 06/17/23 Chief Complaint: venous ulcers of left lower extremity History of Wound: Mauricio is a 67 yo gentleman who is here today for evaluation of ulcers to to his bilateral lower legs. [facility]. The left LE ulcer started after he developed increased swelling and blisters of left leg in October and the right leg started sometime at the end of October. He was seen at PCP's office a culture was taken and it was resistant to several antibiotics. He was treated initially with Levaquin but had myalgias and then was treated with doxycycline which he finished 2 days ago. He denies improvementand is having swelling to his left calf and thigh. He has been having swelling to both lower extremities for many years and it has worsened over the last few months. He has not been compliant with compression. He has had increased pain especially in the left leg. He has clear yellow drainage and redness without odor or warmth. He is anti-coagulated on coumadin. He has been washing with Dial soap and witch ifrah. He had been using Collagen at times and using Calcium Alginate and covering with ABD pads during October. He was treated with 3M compression and Aquacel Ag. He was referred to the wound center for ongoing treatment. His ulcers have moderate to heavy drainage. He was recently hospitalized for cellulitis and edema for the last 10 days. He was in the hospital from 11/30/22 until 12/09/22 for treatment of cellulitis and edema. He underwent treatment with Vancomycin and IV lasix and compression. Discharged on 12/09/22 and is currently in the [facility] section of [facility]. He returned to his assisted living apartment on Tuesday12/21/22. Subjective Subjective He tolerated Epifix #10 application with mild improvement. Edema remains better. He did use pumps the past 2 weeks. Denies fever, chills, increased pain or increased drainage. Objective Data Objective Data Vital Signs: Vital Signs Temp Pulse Resp BP 96 F L 68 18 116/76 06/17/23 10:12 06/17/23 10:12 06/17/23 10:12 06/17/23 10:12 Physical Exam Const alert, oriented x3 and no apparent distress General Appearance: cooperative and comfortable HEENT normocephalic and head/scalp atraumatic Lymph Lymphatic: lymphedema moderate Resp normal respiratory effort Effort and Inspection: able to speak in complete sentences Cardio regular rate and regular rhythm Extremity General Extremity: edema bilateral lower extremity Details: severe Skin Wounds: wounds noted Wound Narrative: as in clinical panel Psych mental status grossly normal, thought process normal, cooperative and affect normal Debridement Note Debridement Note Wound debrided: left medial LE cluster Laterality: Left Type of Debridement: Excisional debridement Anesthesia Used: 4% Lidocaine Solution and 5% Lidocaine Gel Depth: Down to and including healthy tissue and in the subcutaneous layer Percentage of wound debrided: 100 Instrument Used: - (misonix ultrasonic debridement) Tissue Removed: Yellow slough, devitalized tissue Severity: Fat Layer Exposed Amount of bleeding with debridement: Mild Bleeding Controlled with: Compression and gauze Patient tolerated procedure: Patient tolerated procedure well Post-Debridement Measurements and Additional Note: Post-Debridement Measurements/Treatment WC - Nurse 1 - General Ulcer Assessment Start: 06/10/23 10:13 Freq: Status: Active Protocol: ONDINA Activity Type Activity Date Activity User E-sign Co-sign Detail Recorded Client Recorded Date Recorded By Document 06/10/23 10:13 DL [id number] 06/10/23 10:24 DL Document 06/17/23 10:12 RB [id number] 06/17/23 10:14 RB 06/10/23 06/17/23 10:13 10:12 WC - Today's Visit Information Type of service Follow-up Visit Follow-up Visit (Physician/APPLICATIONS SPECIALIST (Physician/APPLICATIONS SPECIALIST ) ) Arrival Mode Ambulatory, Ambulatory Walker Transfer Assistance None None Patient Identification Verified (Name & Yes Yes ) Patient Requires Transmission-Based No No Precautions Vital Signs Temperature (97.8 F-99.1 F) 98.1 F 96 F L Temperature Source Temporal Temporal Pulse Rate (60-100) 69 68 Pulse Location Monitor Monitor Respiratory Rate (12-18) 20 H 18 Respiratory rate source Observation Observation Blood Pressure (90/60-120/80) 114/63 116/76 Blood Pressure Mean (mm Hg) 80 89 Source Monitor Monitor Position Semi-Fowlers Blood Pressure Location Left Arm History Since Last Visit- (Skip if this is Patient's initial visit) Have you changed medications since your No No last visit? Any new allergies or adverse reactions No No Had a fall/change in ADL's that may No No increase risk of falls Signs or symptoms of abuse and/or No No neglect since last visit Have you been in the hospital since your No No last visit? Has dressing in place as prescribed Yes Yes Has compression in place as prescribed Yes Yes Has offloadiing in place as prescribed N/A No Experienced any changes in pain level or No No management Pain Scale: 0-10 Numeric Is Patient Pain Free? Yes Yes - Nurse 1 - General Ulcer Measurement Start: 06/10/23 10:13 Freq: Status: Active Protocol: Activity Type Activity Date Activity User E-sign Co-sign Detail Recorded Client Recorded Date Recorded By Document 06/10/23 10:13 DL [id number] 06/10/23 10:24 DL Document 06/17/23 10:12 RB [id number] 06/17/23 10:14 RB 06/10/23 06/17/23 10:13 10:12 Wound Center Nurse 1 #18 Left medial LE cluster -Combined with other wound No -Current Size (cm) - Length 10.4 11 -Current Size (cm) - Width 17 17.5 -Current Size (cm) - Depth 0.3 0.1 -Total Square Cm 176.8 192.5 -Photo Taken Yes -Tunneling No -Undermining/Tunneling No -Circular Undermining No -Exudate Amt Large Large -Exudate Type Serosanguineous Serosanguineous -Wound Margin Distinct, Distinct, Outline Outline Attached Attached -Granulation Amt Medium (34-66%) Medium (34-66%) -Granulation Quality Red Lingle -Slough/Fibrin Yes -Necrosis Amt Medium (34-66%) Medium (34-66%) -Necrotic Tissue Type Adherent Slough Adherent Slough -Structure Exposed N/A N/A -Texture (Marie-wound Skin Appearance) Scarring Assessed, Excoriation -Moisture (Marie-wound Skin Appearance) Maceration Assessed -Color (Marie-wound Skin Appearance) Hemosiderin Assessed Staining -Temperature (Marie-wound Skin No Abnormality No Abnormality Appearance) (Pt Warm) (Pt Warm) -Tenderness on Palpation (Marie-wound No No Skin Appearance) -Ulcer Cleansing Soap and Water Wound Cleanser -Foul Odor after Cleansing No No -Anesthetic Used 4% Lidocaine 4% Lidocaine Solution Solution,5% Lidocaine Gel Lower Limb Edema Present Yes Left Calf (cm) 40 44 Left Ankle (cm) 29.4 32.5 WC - Nurse 2 - General Ulcer CM Notes Start: 06/10/23 10:13 Freq: Status: Active Protocol: Activity Type Activity Date Activity User E-sign Co-sign Detail Recorded Client Recorded Date Recorded By Document 06/10/23 13:14 PL [id number] 06/10/23 13:18 PL 06/10/23 13:14 Wound Center Nurse 2 #18 Left medial LE cluster -Time 10:32 -Correct Patient Yes -Correct Side, Site, Position Yes -Correct Procedure Yes -Procedure Performed Yes -Type of Procedure Debridement -Clinical Debridement Subcutaneous -Tissue Removed Subcutaneous -Post Debridement (cm) - Length 7.0 -Post Debridement (cm) - Width 13.0 -Post Debridement (cm) - Depth 0.2 -Total Square (Post) (cm) 91.00 -Area of Debridement (cm) - Length 7.0 -Area of Debridement (cm) - Width 13.0 -Total Square (Area) (cm) 91.00 -Tunneling No -Undermining/Tunneling No -Circular Undermining No -Wound/Ulcer Outcome Not Healed -Ulcer Cleansing Rinsed/ Irrigated with Saline -Foul Odor after Cleansing No -Bioengineered Tissue Yes -Type of Bioengineered Tissue Epifix Mesh -Expiration Date 02/08/28 -Product Lot Number [id number] -Percent Used 100 -Bleeding Controlled with Pressure -Treatment Response Procedure Tolerated Well -Debridement - Subq, 1st 20sq cm No -Apply Skin Sub - 1st 25 sq cm - Legs 1 -Apply Skin Sub - each addt'l 25 sq cm 3 - Legs -Epifix Mesh (per sq cm) 11 Pain Scale: 0-10 Numeric Is Patient Pain Free? Yes - Nurse 3 - General Ulcer D/C NN Start: 06/10/23 10:13 Freq: Status: Active Protocol: Activity Type Activity Date Activity User E-sign Co-sign Detail Recorded Client Recorded Date Recorded By Document 06/10/23 11:00 RB [id number] 06/10/23 11:01 RB Edit Result 06/10/23 11:00 RB (1) [id number] 06/10/23 11:03 RB (1) #18 Left medial LE cluster - Optilok 6.5x10 2 => 1 06/10/23 11:00 Wound Care Center Nurse 3 #18 Left medial LE cluster -Ulcer Cleansing Rinsed/ Irrigated with Saline -Primary Dressing Applied Aquacel Extra, Optilok 6.5x10 -Primary Dressing Covered/Secured with Dry Gauze & Roll Gauze, Secured with Tape -Aquacel Extra 1 -Optilok 6.5x10 1 Right -Tubular Bandage Single Layer -Size of Tubigrip Used Size E -Size E ($) 1 Left -Tubular Bandage Single Layer -Size of Tubigrip Used Size E -Size E ($) 1 Treatment Response Procedure Tolerated Well Pain Scale: 0-10 Numeric Is Patient Pain Free? Yes WC - Visit Discharge Discharge Condition Stable Ambulatory Status Ambulatory, Walker Transportation Private Auto Medication Reconcilliation completed & No provided to patient/care provider Clinical Summary of Care Provided Yes Assessment/Plan Assessment/Plan (1) Ulcer of left lower extremity with fat layer exposed: CODE(S): L97.922 - Non-pressure chronic ulcer of unspecified part of left lower leg with fat layer exposed (2) Venous insufficiency: CODE(S): I87.2 - Venous insufficiency (chronic) (peripheral) (3) Edema: CODE(S): R60.9 - Edema, unspecified QUALIFIERS: Edema type: unspecified Qualified Code(s): R60.9 - Edema, unspecified (4) History of CVA (cerebrovascular accident): CODE(S): Z86.73 - Personal history of transient ischemic attack (TIA), andcerebral infarction without residual deficits (5) 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 At home wound-care instructions: Will apply Aquacel Extra to the wound bed. Willcover with super absorber and KISHORE bandage changed Tuesday and Tuesday or daily if needed for excessive drainage. Consider Dakins or Aquacel Extra if odor or increased drainage. Off-loading: The patient was instructed to avoid pressure and friction on the affected areas. Reposition every 2 hours at minimum. Avoid prolonged standing and/or dangling of legs. When seated, feet should be elevated at chest level. Frequent ambulation is encouraged. Encouraged lymphedema pump use. Diet: Patient encouraged to increase protein intake while taking caution to avoid high carbohydrate and/or sugar intake. Labs/cultures/imaging: Wound culture showed 1+ Pseudomonas that is resistant to oral antibiotics. Wound culture showed rare growth on 05/13/23. Follow-up: Return in 1 week for wound care follow up and have secondary dressingchanged by home health Tuesday and Tuesday. Return sooner or report to the emergency room should symptoms worsen, or new symptoms arise. Note: Unir[employer] speech recognition hair tinter software was used to create portions of this document. Sound-alike and misspelled words, as well as other hair tinter errors may be contained in the documentation. 06/17/23 1103 <Electronically signed by Patricia Garcia DO> Cosigner Signature (if applicable): CC: ~ Signed [facility] Work Phone: [phone] 720-675409-01-2023 Progress note Author Patricia Garcia [facility] June 10, 2023 1:26pm Note Date/Time June 10, 2023 1:26pm [facility] [address] [facility] [place] [address] Progress Note - Wound Care 06/10/23 1325 MR#: [id number] Acct: [id number] Name: ESTEBAN URBINA Rep #:[id number] : 1955 67 From: Patriica Garcia DO PCP: Dr. Patricia Garcia DO Status:REG RCR Location: History of Present Illness Date of Service: 06/10/23 Chief Complaint: venous ulcers of left lower extremity History of Wound: Mauricio is a 67 yo gentleman who is here today for evaluation of ulcers to to his bilateral lower legs. He has been treated multiple times in thepast at the wound healing center for similar ulcers. The left LE ulcer started after he developed increased swelling and blisters of left leg in October and the right leg started sometime at the end of October. He was seen at PCP's office a culture was taken and it was resistant to several antibiotics. He was treated initially with Levaquin but had myalgias and then was treated with doxycycline which he finished 2 days ago. He denies improvementand is having swelling to his left calf and thigh. He has been having swelling to both lower extremities for many years and it has worsened over the last few months. He has not been compliant with compression. He has had increased pain especially in the left leg. He has clear yellow drainage and redness without odor or warmth. He is anti-coagulated on coumadin. He has been washing with Dial soap and witch ifrah. He had been using Collagen at times and using Calcium Alginate and covering with ABD pads during October. He was treated with 3M compression and Aquacel Ag. He was referred to the wound center for ongoing treatment. His ulcers have moderate to heavy drainage. He was recently hospitalized for cellulitis and edema for the last 10 days. He was in the hospital from 11/30/22 until 12/09/22 for treatment of cellulitis and edema. He underwent treatment with Vancomycin and IV lasix and compression. Discharged on 12/09/22 and is currently in the [facility]illed section of [facility]. He returned to his assisted living apartment on Tuesday12/21/22. Subjective Subjective He tolerated Epifix #9 application with mild improvement. Edema is better. He did use pumps the past 2 weeks. Denies fever, chills, increased pain or increased drainage. Objective Data Objective Data Vital Signs: Vital Signs Temp Pulse Resp BP 98.1 F 69 20 H 114/63 06/10/23 10:13 06/10/23 10:13 06/10/23 10:13 06/10/23 10:13 Physical Exam Const alert, oriented x3 and no apparent distress General Appearance: cooperative and comfortable HEENT normocephalic and head/scalp atraumatic Lymph Lymphatic: lymphedema moderate Resp normal respiratory effort Effort and Inspection: able to speak in complete sentences Cardio regular rate and regular rhythm Extremity General Extremity: edema bilateral lower extremity Details: severe Skin Wounds: wounds noted Wound Narrative: as in clinical panel Psych mental status grossly normal, thought process normal, cooperative and affect normal Debridement Note Debridement Note Wound debrided: left medial LE cluster Laterality: Left Type of Debridement: Excisional debridement Anesthesia Used: 4% Lidocaine Solution and 5% Lidocaine Gel Depth: Down to and including healthy tissue and in the subcutaneous layer Percentage of wound debrided: 100 Instrument Used: - (misonix ultrasonic debridement) Tissue Removed: Yellow slough, devitalized tissue Severity: Fat Layer Exposed Amount of bleeding with debridement: Mild Bleeding Controlled with: Compression and gauze Patient tolerated procedure: Patient tolerated procedure well Post-Debridement Measurements and Additional Note: Post-Debridement Measurements/Treatment - Nurse 1 - General Ulcer Assessment Start: 06/10/23 10:13 Freq: Status: Active Protocol: [email or web address] Activity Type Activity Date Activity User E-sign Co-sign Detail Recorded Client Recorded Date Recorded By Document 06/10/23 10:13 ADITI [id number] 06/10/23 10:24 DL 06/10/23 10:13 DEBBIE - Today's Visit Information Type of service Follow-up Visit (Physician/APPLICATIONS SPECIALIST ) Arrival Mode Ambulatory, Walker Transfer Assistance None Patient Identification Verified (Name & Yes ) Patient Requires Transmission-Based No Precautions Vital Signs Temperature (97.8 F-99.1 F) 98.1 F Temperature Source Temporal Pulse Rate (60-100) 69 Pulse Location Monitor Respiratory Rate (12-18) 20 H Respiratory rate source Observation Blood Pressure (90/60-120/80) 114/63 Blood Pressure Mean (mm Hg) 80 Source Monitor History Since Last Visit- (Skip if this is Patient's initial visit) Have you changed medications since your No last visit? Any new allergies or adverse reactions No Had a fall/change in ADL's that may No increase risk of falls Signs or symptoms of abuse and/or No neglect since last visit Have you been in the hospital since your No last visit? Has dressing in place as prescribed Yes Has compression in place as prescribed Yes Has offloadiing in place as prescribed N/A Experienced any changes in pain level or No management Pain Scale: 0-10 Numeric Is Patient Pain Free? Yes WC - Nurse 1 - General Ulcer Measurement Start: 06/10/23 10:13 Freq: Status: Active Protocol: Activity Type Activity Date Activity User E-sign Co-sign Detail Recorded Client Recorded Date Recorded By Document 06/10/23 10:13 DL [id number] 06/10/23 10:24 DL 06/10/23 10:13 Wound Center Nurse 1 #18 Left medial LE cluster -Current Size (cm) - Length 10.4 -Current Size (cm) - Width 17 -Current Size (cm) - Depth 0.3 -Total Square Cm 176.8 -Photo Taken Yes -Exudate Amt Large -Exudate Type Serosanguineous -Wound Margin Distinct, Outline Attached -Granulation Amt Medium (34-66%) -Granulation Quality Red -Necrosis Amt Medium (34-66%) -Necrotic Tissue Type Adherent Slough -Structure Exposed N/A -Texture (Marie-wound Skin Appearance) Scarring -Moisture (Marie-wound Skin Appearance) Maceration -Color (Marie-wound Skin Appearance) Hemosiderin Staining -Temperature (Marie-wound Skin No Abnormality Appearance) (Pt Warm) -Tenderness on Palpation (Marie-wound No Skin Appearance) -Ulcer Cleansing Soap and Water -Foul Odor after Cleansing No -Anesthetic Used 4% Lidocaine Solution Left Calf (cm) 40 Left Ankle (cm) 29.4 WC - Nurse 2 - General Ulcer CM Notes Start: 06/10/23 10:13 Freq: Status: Active Protocol: Activity Type Activity Date Activity User E-sign Co-sign Detail Recorded Client Recorded Date Recorded By Document 06/10/23 13:14 PL [id number] 06/10/23 13:18 PL 06/10/23 13:14 Wound Center Nurse 2 #18 Left medial LE cluster -Time 10:32 -Correct Patient Yes -Correct Side, Site, Position Yes -Correct Procedure Yes -Procedure Performed Yes -Type of Procedure Debridement -Clinical Debridement Subcutaneous -Tissue Removed Subcutaneous -Post Debridement (cm) - Length 7.0 -Post Debridement (cm) - Width 13.0 -Post Debridement (cm) - Depth 0.2 -Total Square (Post) (cm) 91.00 -Area of Debridement (cm) - Length 7.0 -Area of Debridement (cm) - Width 13.0 -Total Square (Area) (cm) 91.00 -Tunneling No -Undermining/Tunneling No -Circular Undermining No -Wound/Ulcer Outcome Not Healed -Ulcer Cleansing Rinsed/ Irrigated with Saline -Foul Odor after Cleansing No -Bioengineered Tissue Yes -Type of Bioengineered Tissue Epifix Mesh -Expiration Date 02/08/28 -Product Lot Number [id number] -Percent Used 100 -Bleeding Controlled with Pressure -Treatment Response Procedure Tolerated Well -Debridement - Subq, 1st 20sq cm No -Apply Skin Sub - 1st 25 sq cm - Legs 1 -Apply Skin Sub - each addt'l 25 sq cm 3 - Legs -Epifix Mesh (per sq cm) 11 Pain Scale: 0-10 Numeric Is Patient Pain Free? Yes WC - Nurse 3 - General Ulcer D/C NN Start: 06/10/23 10:13 Freq: Status: Active Protocol: Activity Type Activity Date Activity User E-sign Co-sign Detail Recorded Client Recorded Date Recorded By Document 06/10/23 11:00 RB [id number] 06/10/23 11:01 RB Edit Result 06/10/23 11:00 RB (1) [id number] 06/10/23 11:03 RB (1) #18 Left medial LE cluster - Optilok 6.5x10 2 => 1 06/10/23 11:00 Wound Care Center Nurse 3 #18 Left medial LE cluster -Ulcer Cleansing Rinsed/ Irrigated with Saline -Primary Dressing Applied Aquacel Extra, Optilok 6.5x10 -Primary Dressing Covered/Secured with Dry Gauze & Roll Gauze, Secured with Tape -Aquacel Extra 1 -Optilok 6.5x10 1 Right -Tubular Bandage Single Layer -Size of Tubigrip Used Size E -Size E ($) 1 Left -Tubular Bandage Single Layer -Size of Tubigrip Used Size E -Size E ($) 1 Treatment Response Procedure Tolerated Well Pain Scale: 0-10 Numeric Is Patient Pain Free? Yes WC - Visit Discharge Discharge Condition Stable Ambulatory Status Ambulatory, Walker Transportation Private Auto Medication Reconcilliation completed & No provided to patient/care provider Clinical Summary of Care Provided Yes Assessment/Plan Assessment/Plan (1) Ulcer of left lower extremity with fat layer exposed: CODE(S): L97.922 - Non-pressure chronic ulcer of unspecified part of left lower leg with fat layer exposed (2) Venous insufficiency: CODE(S): I87.2 - Venous insufficiency (chronic) (peripheral) (3) Edema: CODE(S): R60.9 - Edema, unspecified QUALIFIERS: Edema type: unspecified Qualified Code(s): R60.9 - Edema, unspecified (4) History of CVA (cerebrovascular accident): CODE(S): Z86.73 - Personal history of transient ischemic attack (TIA), andcerebral infarction without residual deficits (5) 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 At home wound-care instructions: Epifix #10 applied today per java tech lead guidelines and covered with wound veil and secured with steri-strips. Will coverwith super absorber and KISHORE bandage changed Tuesday and Tuesday or daily if needed for excessive drainage. Epifix was held for the last 4 weeks due to worsening edema and infection. His ulcer is clinically clear of infection and edema is better controlled today which prompted the decision to restart Epifix application. Off-loading: The patient was instructed to avoid pressure and friction on the affected areas. Reposition every 2 hours at minimum. Avoid prolonged standing and/or dangling of legs. When seated, feet should be elevated at chest level. Frequent ambulation is encouraged. Encouraged lymphedema pump use. Diet: Patient encouraged to increase protein intake while taking caution to avoid high carbohydrate and/or sugar intake. Labs/cultures/imaging: Wound culture showed 1+ Pseudomonas that is resistant to oral antibiotics. Wound culture showed rare growth on 05/13/23. Follow-up: Return in 1 week for wound care follow up and have secondary dressingchanged by home health Tuesday and Tuesday. Return sooner or report to the emergency room should symptoms worsen, or new symptoms arise. Note: Unirisx speech recognition hair tinter software was used to create portions of this document. Sound-alike and misspelled words, as well as other hair tinter errors may be contained in the documentation. 06/10/23 1326 <Electronically signed by Patricia Garcia DO> Cosigner Signature (if applicable): CC: ~ Signed [facility] Work Phone: 1(447) 304-922508-25-2023 Progress note Author Patricia Garcia [facility] June 03, 2023 2:46pm Note Date/Time June 03, 2023 2: 46pm [facility] [address] [place] [id number] Progress Note - Wound Care 06/03/23 1443 MR#: [id number] Acct: [id number] Name: ESTEBAN URBINA Rep #:[id number] : 1955 67 From: Patricia Garcia DO PCP: Dr. Patricia Garcia, DO Status:REG RCR Location: History of Present Illness Date of Service: 06/03/23 Chief Complaint: venous ulcers of left lower extremity History of Wound: Mauricio is a 67 yo gentleman who is here today for evaluation of ulcers to to his bilateral lower legs. [facility]. The left LE ulcer started after he developed increased swelling and blisters of left leg in October and the right leg started sometime at the end of October. He was seen at PCP's office a culture was taken and it was resistant to several antibiotics. He was treated initially with Levaquin but had myalgias and then was treated with doxycycline which he finished 2 days ago. He denies improvementand is having swelling to his left calf and thigh. He has been having swelling to both lower extremities for many years and it has worsened over the last few months. He has not been compliant with compression. He has had increased pain especially in the left leg. He has clear yellow drainage and redness without odor or warmth. He is anti-coagulated on coumadin. He has been washing with Dial soap and witch ifrah. He had been using Collagen at times and using Calcium Alginate and covering with ABD pads during October. He was treated with 3M compression and Aquacel Ag. He was referred to the wound center for ongoing treatment. His ulcers have moderate to heavy drainage. He was recently hospitalized for cellulitis and edema for the last 10 days. He was in the hospital from 11/30/22 until 12/09/22 for treatment of cellulitis and edema. He underwent treatment with Vancomycin and IV lasix and compression. Discharged on 12/09/22 and is currently in the Skilled section of [facility]. He returned to his assisted living apartment on Tuesday12/21/22. Subjective Subjective He tolerated Epifix #8 application with mild improvement. Edema is better. He did use pumps the past 2 weeks. Denies fever, chills, increased pain or increased drainage. Objective Data Objective Data Vital Signs: Vital Signs Temp Pulse Resp BP O2 Del Method 97.2 F L 66 18 96/54 L Room Air 06/03/23 10:05 06/03/23 10:05 06/03/23 10:05 06/03/23 10:05 06/03/23 10:05 Oxygen Delivery Method Room Air Lab / Micro Data Micro: Microbiology 05/13/23 11:45 Wound - Leg, Left Gram Stain - Final 05/13/23 11:45 Wound - Leg, Left Wound Culture - Final Pseudomonas aeruginosa 05/13/23 11:45 Wound - Leg, Left Anaerobic Culture - Final No growth in 5 days. Physical Exam Const alert, oriented x3 and no apparent distress General Appearance: cooperative and comfortable HEENT normocephalic and head/scalp atraumatic Lymph Lymphatic: lymphedema moderate Resp normal respiratory effort Effort and Inspection: able to speak in complete sentences Cardio regular rate and regular rhythm Extremity General Extremity: edema bilateral lower extremity Details: severe Skin Wounds: wounds noted Wound Narrative: as in clinical panel Psych mental status grossly normal, thought process normal, cooperative and affect normal Debridement Note Debridement Note Wound debrided: left medial LE cluster Laterality: Left Type of Debridement: Excisional debridement Anesthesia Used: 4% Lidocaine Solution and 5% Lidocaine Gel Depth: Down to and including healthy tissue and in the subcutaneous layer Percentage of wound debrided: 100 Instrument Used: 7mm curette Tissue Removed: Yellow slough, devitalized tissue Severity: Fat Layer Exposed Amount of bleeding with debridement: Mild Bleeding Controlled with: Compression and gauze Patient tolerated procedure: Patient tolerated procedure well Post-Debridement Measurements and Additional Note: Post-Debridement Measurements/Treatment - Nurse 1 - General Ulcer Assessment Start: 05/13/23 10:23 Freq: Status: Active Protocol: ONDINA Activity Type Activity Date Activity User E-sign Co-sign Detail Recorded Client Recorded Date Recorded By Document 05/13/23 10:23 JF [id number] 05/13/23 10:35 JF Document 05/27/23 10:10 DL [id number] 05/27/23 10:16 DL Document 06/03/23 10:05 KW [id number] 06/03/23 10:23 KW 05/13/23 05/27/23 06/03/23 10:23 10:10 10:05 - Today's Visit Information Type of service Follow-up Visit Follow-up Visit Follow-up Visit (Physician/APPLICATIONS SPECIALIST (Physician/APPLICATIONS SPECIALIST (Physician/APPLICATIONS SPECIALIST ) ) ) Arrival Mode Ambulatory, Ambulatory Ambulatory, Walker Walker Transfer Assistance None Patient Identification Verified (Name & Yes Yes Yes ) Patient Requires Transmission-Based No No Precautions Vital Signs Temperature (97.8 F-99.1 F) 96.9 F L 97.1 F L 97.2 F L Temperature Source Temporal Temporal Temporal Pulse Rate (60-100) 60 69 66 Pulse Location Monitor Monitor Monitor Respiratory Rate (12-18) 18 20 H 18 Respiratory rate source Observation Observation Observation Oxygen Delivery Method Room Air Blood Pressure (90/60-120/80) 104/64 95/63 96/54 L Blood Pressure Mean (mm Hg) 77 73 68 Source Monitor Monitor Monitor Position Semi-Fowlers Semi-Fowlers Blood Pressure Location Right Arm Right Arm History Since Last Visit- (Skip if this is Patient's initial visit) Have you changed medications since your No No No last visit? Any new allergies or adverse reactions No No No Had a fall/change in ADL's that may No No No increase risk of falls Signs or symptoms of abuse and/or No No No neglect since last visit Have you been in the hospital since your No No No last visit? Has dressing in place as prescribed Yes Yes Yes Has compression in place as prescribed Yes Yes Yes Has offloadiing in place as prescribed N/A N/A No Experienced any changes in pain level or No No No management Left Footwear Regular Shoe Regular Shoe Right Footwear Regular Shoe Regular Shoe Pain Scale: 0-10 Numeric Is Patient Pain Free? Yes Yes No LLE -Description Burning,Aching -Intensity 8 -Radiation Location up leg towards arms and left side -Pain Behavior No Change in Behavior -Alleviating Factors/Interventions Medication WC - Nurse 1 - General Ulcer Measurement Start: 05/13/23 10:23 Freq: Status: Active Protocol: Activity Type Activity Date Activity User E-sign Co-sign Detail Recorded Client Recorded Date Recorded By Document 05/13/23 10:23 JF [id number] 05/13/23 10:35 JF Document 05/27/23 10:10 DL [id number] 05/27/23 10:16 DL Edit Result 05/27/23 10:10 DL (1) [id number] 05/27/23 10:17 DL Document 06/03/23 10:05 KW [id number] 06/03/23 10:23 KW (1) Right Calf (cm) => 43.3 Right Ankle (cm) => 28.5 Left Calf (cm) => 44.5 Left Ankle (cm) => 31.6 05/13/23 05/27/23 06/03/23 10:23 10:10 10:05 Wound Center Nurse 1 #18 Left medial LE cluster -Combined with other wound No -Current Size (cm) - Length 6.4 7.7 7.3 -Current Size (cm) - Width 15.5 15.6 12.5 -Current Size (cm) - Depth 0.2 6.6 0.2 -Total Square Cm 99.20 120.12 91.25 -Date of Last Picture (Recall this 06/03/23 field) -Photo Taken Yes Yes -Epithelialization None Present -Tunneling No -Undermining/Tunneling No -Circular Undermining No -Exudate Amt Large Medium -Exudate Type Serosanguineous Serosanguineous Yellow/Green -Wound Margin Flat & Intact Distinct, Outline Attached -Granulation Amt Large (67-100%) Large (67-100%) Medium (34-66%) -Granulation Quality Red Red Lingle -Slough/Fibrin Yes -Necrosis Amt Small (1-33%) Small (1-33%) Small (1-33%) -Necrotic Tissue Type Adherent Slough Adherent Slough Adherent Slough -Structure Exposed N/A -Texture (Marie-wound Skin Appearance) Assessed, Assessed Assessed Localized Edema -Moisture (Marie-wound Skin Appearance) Assessed,Dry/ Assessed Assessed Scaly -Color (Marie-wound Skin Appearance) Assessed, Assessed Assessed Hemosiderin Staining -Temperature (Marie-wound Skin No Abnormality No Abnormality Appearance) (Pt Warm) (Pt Warm) -Tenderness on Palpation (Marie-wound No Skin Appearance) -Ulcer Cleansing Wound Cleanser Soap and Water Soap and Water -Foul Odor after Cleansing No No -Anesthetic Used 5% Lidocaine 5% Lidocaine 5% Lidocaine Gel Gel Gel Lower Limb Edema Present Yes Right Calf (cm) 43.3 Right Ankle (cm) 28.5 Left Calf (cm) 46.3 44.5 43.4 Left Ankle (cm) 31.0 31.6 33.4 WC - Nurse 2 - General Ulcer CM Notes Start: 05/13/23 10:23 Freq: Status: Active Protocol: Activity Type Activity Date Activity User E-sign Co-sign Detail Recorded Client Recorded Date Recorded By Document 05/13/23 11:44 MW [id number] 05/13/23 11:58 MW Document 05/27/23 10:39 MW Desktop 05/27/23 10:58 MW Document 06/03/23 11:35 MW [id number] 06/03/23 11:58 MW 05/13/23 05/27/23 06/03/23 11:44 10:39 11:35 Wound Center Nurse 2 #18 Left medial LE cluster -Time 11:44 10:39 11:36 -Correct Patient Yes Yes Yes -Correct Side, Site, Position Yes Yes Yes -Correct Procedure Yes Yes Yes -Procedure Performed Yes Yes Yes -Type of Procedure Debridement Debridement Debridement -Clinical Debridement Subcutaneous Subcutaneous Subcutaneous -Tissue Removed Subcutaneous Subcutaneous Subcutaneous -Post Debridement (cm) - Length 6.6 6.8 7.0 -Post Debridement (cm) - Width 12.5 12.5 13.0 -Post Debridement (cm) - Depth 0.2 0.2 0.2 -Total Square (Post) (cm) 82.50 85.00 91.00 -Area of Debridement (cm) - Length 6.6 6.8 7.0 -Area of Debridement (cm) - Width 12.5 12.5 13.0 -Total Square (Area) (cm) 82.50 85.00 91.00 -Tunneling No No No -Undermining/Tunneling No No No -Circular Undermining No No No -Wound/Ulcer Outcome Not Healed Not Healed Not Healed -Ulcer Cleansing Rinsed/ Rinsed/ Rinsed/ Irrigated with Irrigated with Irrigated with Saline Saline Saline -Foul Odor after Cleansing No No No -Bioengineered Tissue No Yes Yes -Type of Bioengineered Tissue Epifix Mesh Epifix Mesh -Expiration Date 02/08/28 02/08/28 -Product Lot Number [id number] -Percent Used 100 100 -Lot number of Saline Used [id number] -Bleeding Controlled with Pressure Pressure Pressure -Treatment Response Procedure Procedure Tolerated Well Tolerated Well -Offloading No -Debridement - Subq, 1st 20sq cm Yes No No -Debridement, SubQ, ea addt'l 20sq cm 4 or part thereof -Apply Skin Sub - 1st 25 sq cm - Legs 1 1 -Epifix Mesh (per sq cm) 11 11 Pain Scale: 0-10 Numeric Is Patient Pain Free? Yes Yes Yes WC - Nurse 3 - General Ulcer D/C NN Start: 05/13/23 10:23 Freq: Status: Active Protocol: Activity Type Activity Date Activity User E-sign Co-sign Detail Recorded Client Recorded Date Recorded By Document 05/13/23 12:01 KARTHIK [id number] 05/13/23 12:03 Document 05/27/23 11:10 RB [id number] 05/27/23 11:11 RB Document 06/03/23 12:13 RB [id number] 06/03/23 12:15 RB 05/13/23 05/27/23 06/03/23 12:01 11:10 12:13 Wound Care Center Nurse 3 #18 Left medial LE cluster -Ulcer Cleansing Rinsed/ Irrigated with Saline -Foul Odor after Cleansing No -Primary Dressing Applied Aquacel Extra Aquacel Extra -Other Dressing dakin's 0.25% abd abd -Primary Dressing Covered/Secured with Dry Gauze & Dry Gauze & Dry Gauze & Roll Gauze, Roll Gauze, Roll Gauze, Secured with Secured with Secured with Tape Tape Tape -Other Covering ABD pad -Aquacel Extra 1 1 Right -Tubular Bandage Single Layer Single Layer Single Layer -Size of Tubigrip Used Size E Size E Size E -Size E ($) 1 1 1 Left -Tubular Bandage Single Layer Single Layer Single Layer -Size of Tubigrip Used Size E Size E Size E -Size E ($) 1 1 1 Treatment Response Procedure Procedure Tolerated Well Tolerated Well Pain Scale: 0-10 Numeric Is Patient Pain Free? Yes Yes Yes WC - Visit Discharge Discharge Condition Stable Stable Stable Ambulatory Status Ambulatory, Ambulatory, Ambulatory, Walker Walker Walker Transportation Private Auto Private Auto Private Auto Accompanied by [facility] Medication Reconcilliation completed & Yes No No provided to patient/care provider Clinical Summary of Care Provided Yes Yes Yes Assessment/Plan Assessment/Plan (1) Ulcer of left lower extremity with fat layer exposed: CODE(S): L97.922 - Non-pressure chronic ulcer of unspecified part of left lower leg with fat layer exposed (2) Venous insufficiency: CODE(S): I87.2 - Venous insufficiency (chronic) (peripheral) (3) Edema: CODE(S): R60.9 - Edema, unspecified QUALIFIERS: Edema type: unspecified Qualified Code(s): R60.9 - Edema, unspecified (4) History of CVA (cerebrovascular accident): CODE(S): Z86.73 - Personal history of transient ischemic attack (TIA), andcerebral infarction without residual deficits (5) 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 At home wound-care instructions: Epifix #9 applied today per java tech lead guidelines and covered with wound veil and secured with steri-strips. Will coverwith ABD and KISHORE bandage changed Tuesday and Tuesday or daily if needed for excessive drainage. Epifix was held for the last 4 weeks due to worsening edema and infection. His ulcer is clinically clear of infection and edema is better controlled today which prompted the decision to restart Epifix application. Off-loading: The patient was instructed to avoid pressure and friction on the affected areas. Reposition every 2 hours at minimum. Avoid prolonged standing and/or dangling of legs. When seated, feet should be elevated at chest level. Frequent ambulation is encouraged. Encouraged lymphedema pump use. Diet: Patient encouraged to increase protein intake while taking caution to avoid high carbohydrate and/or sugar intake. Labs/cultures/imaging: Wound culture showed 1+ Pseudomonas that is resistant to oral antibiotics. Wound culture showed rare growth on 05/13/23. Follow-up: Return in 1 week for wound care follow up and have secondary dressingchanged by home health Tuesday and Tuesday. Return sooner or report to the emergency room should symptoms worsen, or new symptoms arise. Note: [employer] speech recognition hair tinter software was used to create portions of this document. Sound-alike and misspelled words, as well as other hair tinter errors may be contained in the documentation. 06/03/23 1446 <Electronically signed by Patricia Garcia DO> Cosigner Signature (if applicable): CC: ~ Signed [facility] Work Phone: [phone] 160-783808-18-2023 Progress note Author Patricia Garcia [facility] May 27, 2023 2:12pm Note Date/Time May 27, 2023 2: 13pm [facility] [address] [place] [id number] Progress Note - Wound Care 05/27/23 1406 MR#: [id number] Acct: [id number] Name: CARLITOSESTEBAN J Rep #:[id number] : 1955 67 From: Patricia Garcia DO PCP: Dr. Patricia Garcia, DO Status:REG RCR Location: History of Present Illness Date of Service: 05/27/23 Chief Complaint: venous ulcers of left lower extremity History of Wound: Mauricio is a 67 yo gentleman who is here today for evaluation of ulcers to to his bilateral lower legs. He has been treated multiple times in [facility] at the wound healing center for similar ulcers. The left LE ulcer started after he developed increased swelling and blisters of left leg in October and the right leg started sometime at the end of October. He was seen at PCP's office a culture was taken and it was resistant to several antibiotics. He was treated initially with Levaquin but had myalgias and then was treated with doxycycline which he finished 2 days ago. He denies improvementand is having swelling to his left calf and thigh. He has been having swelling to both lower extremities for many years and it has worsened over the last few months. He has not been compliant with compression. He has had increased pain especially in the left leg. He has clear yellow drainage and redness without odor or warmth. He is anti-coagulated on coumadin. He has been washing with Dial soap and witch ifrah. He had been using Collagen at times and using Calcium Alginate and covering with ABD pads during October. He was treated with 3M compression and Aquacel Ag. He was referred to the wound center for ongoing treatment. His ulcers have moderate to heavy drainage. He was recently hospitalized for cellulitis and edema for the last 10 days. He was in the hospital from 11/30/22 until 12/09/22 for treatment of cellulitis and edema. He underwent treatment with Vancomycin and IV lasix and compression. Discharged on 12/09/22 and is currently in the Skilled section of [facility] He returned to his assisted living apartment on Tuesday12/21/22. Subjective Subjective He is tolerating treatment with Dakins to ulcers. His left lower leg ulcers are not improved this week and edema is better. Culture showed decrease of Pseudomonas growth at last visit and he has continued to use Dakins. He did use pumps the past 2 weeks. Denies fever, chills, increased pain or increased drainage. Objective Data Objective Data Vital Signs: Vital Signs Temp Pulse Resp BP 97.1 F L 69 20 H 95/63 08/18/23 10:10 05/27/23 10:10 05/27/23 10:10 05/27/23 10:10 Lab / Micro Data Micro: Microbiology 05/13/23 11:45 Wound - Leg, Left Gram Stain - Final 05/13/23 11:45 Wound - Leg, Left Wound Culture - Final Pseudomonas aeruginosa 05/13/23 11:45 Wound - Leg, Left Anaerobic Culture - Final No growth in 5 days. Physical Exam Const alert, oriented x3 and no apparent distress General Appearance: cooperative and comfortable HEENT normocephalic and head/scalp atraumatic Lymph Lymphatic: lymphedema moderate Resp normal respiratory effort Effort and Inspection: able to speak in complete sentences Cardio regular rate and regular rhythm Extremity General Extremity: edema bilateral lower extremity Details: severe Skin Wounds: wounds noted Wound Narrative: as in clinical panel Psych mental status grossly normal, thought process normal, cooperative and affect normal Debridement Note Debridement Note Wound debrided: left medial LE cluster Laterality: Left Type of Debridement: Excisional debridement Anesthesia Used: 4% Lidocaine Solution and 5% Lidocaine Gel Depth: Down to and including healthy tissue and in the subcutaneous layer Percentage of wound debrided: 100 Instrument Used: 7mm curette Tissue Removed: Yellow slough, devitalized tissue Severity: Fat Layer Exposed Amount of bleeding with debridement: Mild Bleeding Controlled with: Compression and gauze Patient tolerated procedure: Patient tolerated procedure well Post-Debridement Measurements and Additional Note: Post-Debridement Measurements/Treatment - Nurse 1 - General Ulcer Assessment Start: 05/13/23 10:23 Freq: Status: Active Protocol: ONDINA Activity Type Activity Date Activity User E-sign Co-sign Detail Recorded Client Recorded Date Recorded By Document 05/13/23 10:23 [id number] 05/13/23 10:35 Document 05/27/23 10:10 DL [id number] 05/27/23 10:16 DL 05/13/23 05/27/23 10:23 10:10 - Today's Visit Information Type of service Follow-up Visit Follow-up Visit (Physician/APPLICATIONS SPECIALIST (Physician/APPLICATIONS SPECIALIST ) ) Arrival Mode Ambulatory, Ambulatory Walker Transfer Assistance None Patient Identification Verified (Name & Yes Yes ) Patient Requires Transmission-Based No No Precautions Vital Signs Temperature (97.8 F-99.1 F) 96.9 F L 97.1 F L Temperature Source Temporal Temporal Pulse Rate (60-100) 60 69 Pulse Location Monitor Monitor Respiratory Rate (12-18) 18 20 H Respiratory rate source Observation Observation Blood Pressure (90/60-120/80) 104/64 95/63 Blood Pressure Mean (mm Hg) 77 73 Source Monitor Monitor Position Semi-Fowlers Blood Pressure Location Right Arm History Since Last Visit- (Skip if this is Patient's initial visit) Have you changed medications since your No No last visit? Any new allergies or adverse reactions No No Had a fall/change in ADL's that may No No increase risk of falls Signs or symptoms of abuse and/or No No neglect since last visit Have you been in the hospital since your No No last visit? Has dressing in place as prescribed Yes Yes Has compression in place as prescribed Yes Yes Has offloadiing in place as prescribed N/A N/A Experienced any changes in pain level or No No management Left Footwear Regular Shoe Right Footwear Regular Shoe Pain Scale: 0-10 Numeric Is Patient Pain Free? Yes Yes - Nurse 1 - General Ulcer Measurement Start: 05/13/23 10:23 Freq: Status: Active Protocol: Activity Type Activity Date Activity User E-sign Co-sign Detail Recorded Client Recorded Date Recorded By Document 05/13/23 10:23 [id number] 05/13/23 10:35 JF Document 05/27/23 10:10 DL [id number] 05/27/23 10:16 DL Edit Result 05/27/23 10:10 DL (1) [id number] 05/27/23 10:17 DL (1) Right Calf (cm) => 43.3 Right Ankle (cm) => 28.5 Left Calf (cm) => 44.5 Left Ankle (cm) => 31.6 05/13/23 05/27/23 10:23 10:10 Wound Center Nurse 1 #18 Left medial LE cluster -Combined with other wound No -Current Size (cm) - Length 6.4 7.7 -Current Size (cm) - Width 15.5 15.6 -Current Size (cm) - Depth 0.2 6.6 -Total Square Cm 99.20 120.12 -Photo Taken Yes -Epithelialization None Present -Tunneling No -Undermining/Tunneling No -Circular Undermining No -Exudate Amt Large Medium -Exudate Type Serosanguineous Serosanguineous -Wound Margin Flat & Intact -Granulation Amt Large (67-100%) Large (67-100%) -Granulation Quality Red Red -Slough/Fibrin Yes -Necrosis Amt Small (1-33%) Small (1-33%) -Necrotic Tissue Type Adherent Slough Adherent Slough -Structure Exposed N/A -Texture (Marie-wound Skin Appearance) Assessed, Assessed Localized Edema -Moisture (Marie-wound Skin Appearance) Assessed,Dry/ Assessed Scaly -Color (Marie-wound Skin Appearance) Assessed, Assessed Hemosiderin Staining -Temperature (Marie-wound Skin No Abnormality Appearance) (Pt Warm) -Tenderness on Palpation (Marie-wound No Skin Appearance) -Ulcer Cleansing Wound Cleanser Soap and Water -Foul Odor after Cleansing No -Anesthetic Used 5% Lidocaine 5% Lidocaine Gel Gel Lower Limb Edema Present Yes Right Calf (cm) 43.3 Right Ankle (cm) 28.5 Left Calf (cm) 46.3 44.5 Left Ankle (cm) 31.0 31.6 WC - Nurse 2 - General Ulcer CM Notes Start: 05/13/23 10:23 Freq: Status: Active Protocol: Activity Type Activity Date Activity User E-sign Co-sign Detail Recorded Client Recorded Date Recorded By Document 05/13/23 11:44 MW [id number] 05/13/23 11:58 MW Document 05/27/23 10:39 MW Desktop 05/27/23 10:58 MW 05/13/23 05/27/23 11:44 10:39 Wound Center Nurse 2 #18 Left medial LE cluster -Time 11:44 10:39 -Correct Patient Yes Yes -Correct Side, Site, Position Yes Yes -Correct Procedure Yes Yes -Procedure Performed Yes Yes -Type of Procedure Debridement Debridement -Clinical Debridement Subcutaneous Subcutaneous -Tissue Removed Subcutaneous Subcutaneous -Post Debridement (cm) - Length 6.6 6.8 -Post Debridement (cm) - Width 12.5 12.5 -Post Debridement (cm) - Depth 0.2 0.2 -Total Square (Post) (cm) 82.50 85.00 -Area of Debridement (cm) - Length 6.6 6.8 -Area of Debridement (cm) - Width 12.5 12.5 -Total Square (Area) (cm) 82.50 85.00 -Tunneling No No -Undermining/Tunneling No No -Circular Undermining No No -Wound/Ulcer Outcome Not Healed Not Healed -Ulcer Cleansing Rinsed/ Rinsed/ Irrigated with Irrigated with Saline Saline -Foul Odor after Cleansing No No -Bioengineered Tissue No Yes -Type of Bioengineered Tissue Epifix Mesh -Expiration Date 02/08/28 -Product Lot Number [id number] -Percent Used 100 -Lot number of Saline Used [id number] -Bleeding Controlled with Pressure Pressure -Treatment Response Procedure Procedure Tolerated Well Tolerated Well -Debridement - Subq, 1st 20sq cm Yes No -Debridement, SubQ, ea addt'l 20sq cm 4 or part thereof -Apply Skin Sub - 1st 25 sq cm - Legs 1 -Epifix Mesh (per sq cm) 11 Pain Scale: 0-10 Numeric Is Patient Pain Free? Yes Yes - Nurse 3 - General Ulcer D/C NN Start: 05/13/23 10:23 Freq: Status: Active Protocol: Activity Type Activity Date Activity User E-sign Co-sign Detail Recorded Client Recorded Date Recorded By Document 05/13/23 12:01 [id number] 05/13/23 12:03 Document 05/27/23 11:10 RB [id number] 05/27/23 11:11 RB 05/13/23 05/27/23 12:01 11:10 Wound Care Center Nurse 3 #18 Left medial LE cluster -Ulcer Cleansing Rinsed/ Irrigated with Saline -Foul Odor after Cleansing No -Primary Dressing Applied Aquacel Extra -Other Dressing dakin's 0.25% abd -Primary Dressing Covered/Secured with Dry Gauze & Dry Gauze & Roll Gauze, Roll Gauze, Secured with Secured with Tape Tape -Other Covering ABD pad -Aquacel Extra 1 Right -Tubular Bandage Single Layer Single Layer -Size of Tubigrip Used Size E Size E -Size E ($) 1 1 Left -Tubular Bandage Single Layer Single Layer -Size of Tubigrip Used Size E Size E -Size E ($) 1 1 Treatment Response Procedure Tolerated Well Pain Scale: 0-10 Numeric Is Patient Pain Free? Yes Yes WC - Visit Discharge Discharge Condition Stable Stable Ambulatory Status Ambulatory, Ambulatory, Walker Walker Transportation Private Auto Private Auto Accompanied by [facility] Medication Reconcilliation completed & Yes No provided to patient/care provider Clinical Summary of Care Provided Yes Yes Assessment/Plan Assessment/Plan (1) Ulcer of left lower extremity with fat layer exposed: CODE(S): L97.922 - Non-pressure chronic ulcer of unspecified part of left lower leg with fat layer exposed (2) Venous insufficiency: CODE(S): I87.2 - Venous insufficiency (chronic) (peripheral) (3) Edema: CODE(S): R60.9 - Edema, unspecified QUALIFIERS: Edema type: unspecified Qualified Code(s): R60.9 - Edema, unspecified (4) History of CVA (cerebrovascular accident): CODE(S): Z86.73 - Personal history of transient ischemic attack (TIA), andcerebral infarction without residual deficits (5) 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 At home wound-care instructions: Epifix #8 applied today per java tech lead guidelines and covered with wound veil and secured with steri-strips. Will coverwith ABD and KISHORE bandage changed Tuesday and Tuesday or daily if needed for excessive drainage. Epifix was held for the last 4 weeks due to worsening edema and infection. His ulcer is clinically clear of infection and edema is better controlled today which prompted the decision to restart Epifix application. Off-loading: The patient was instructed to avoid pressure and friction on the affected areas. Reposition every 2 hours at minimum. Avoid prolonged standing and/or dangling of legs. When seated, feet should be elevated at chest level. Frequent ambulation is encouraged. Encouraged lymphedema pump use. Diet: Patient encouraged to increase protein intake while taking caution to avoid high carbohydrate and/or sugar intake. Labs/cultures/imaging: Wound culture showed 1+ Pseudomonas that is resistant to oral antibiotics. Wound culture showed rare growth on 05/13/23. Follow-up: Return in 1 week for wound care follow up and have secondary dressingchanged by home health Tuesday and Tuesday. Return sooner or report to the emergency room should symptoms worsen, or new symptoms arise. Note: Unir[employer] speech recognition hair tinter software was used to create portions of this document. Sound-alike and misspelled words, as well as other hair tinter errors may be contained in the documentation. 05/27/23 1412 <Electronically signed by Patricia Garcia DO> Cosigner Signature (if applicable): CC: ~ Signed [facility] Work Phone: 1(751) 535-983008-04-2023 Progress note Author Patricia Garcia [facility] May 13, 2023 1:52pm Note Date/Time May 13, 2023 1:5 2pm [facility] [address] [place] [id number] Progress Note - Wound Care 05/13/23 1349 MR#: [id number] Acct: [id number] Name: ESTEBAN URBINA Rep #:[id number] : 1955 67 From: Patricia Garcia DO PCP: Dr. Patricia Garcia DO Status:REG RCR Location: History of Present Illness Date of Service: 05/13/23 Chief Complaint: venous ulcers of left lower extremity History of Wound: Mauricio is a 67 yo gentleman who is here today for evaluation of ulcers to to his bilateral lower legs. He has been treated multiple times in [facility] at the wound healing center for similar ulcers. The left LE ulcer started after he developed increased swelling and blisters of left leg in October and the right leg started sometime at the end of October. He was seen at PCP's office a culture was taken and it was resistant to several antibiotics. He was treated initially with Levaquin but had myalgias and then was treated with doxycycline which he finished 2 days ago. He denies improvementand is having swelling to his left calf and thigh. He has been having swelling to both lower extremities for many years and it has worsened over the last few months. He has not been compliant with compression. He has had increased pain especially in the left leg. He has clear yellow drainage and redness without odor or warmth. He is anti-coagulated on coumadin. He has been washing with Dial soap and witch ifrah. He had been using Collagen at times and using Calcium Alginate and covering with ABD pads during October. He was treated with 3M compression and Aquacel Ag. He was referred to the wound center for ongoing treatment. His ulcers have moderate to heavy drainage. He was recently hospitalized for cellulitis and edema for the last 10 days. He was in the hospital from 11/30/22 until 12/09/22 for treatment of cellulitis and edema. He underwent treatment with Vancomycin and IV lasix and compression. Discharged on 12/09/22 and is currently in the [facility] section of [facility]. He returned to his assisted living apartment on Tuesday12/21/22. Subjective Subjective He is tolerating treatment with Dakins to ulcers. His left lower leg ulcers are not improved this week and edema is much worse. Culture did show increase of Pseudomonas growth and he wanted to hold off on IV antibiotic treatment and continue Dakins and repeat culture to see if it continues to increase in growth.He did use pumps this week. Denies fever, chills, increased pain or increased drainage. Objective Data Objective Data Vital Signs: Vital Signs Temp Pulse Resp BP 96.9 F L 60 18 104/64 05/13/23 10:23 05/13/23 10:23 05/13/23 10:05/13/23 10:23 Physical Exam Const alert, oriented x3 and no apparent distress General Appearance: cooperative and comfortable HEENT normocephalic and head/scalp atraumatic Lymph Lymphatic: lymphedema moderate Resp normal respiratory effort Effort and Inspection: able to speak in complete sentences Cardio regular rate and regular rhythm Extremity General Extremity: edema bilateral lower extremity Details: severe Skin Wounds: wounds noted Wound Narrative: as in clinical panel Psych mental status grossly normal, thought process normal, cooperative and affect normal Debridement Note Debridement Note Wound debrided: left medial LE cluster Laterality: Left Type of Debridement: Excisional debridement Anesthesia Used: 4% Lidocaine Solution and 5% Lidocaine Gel Depth: Down to and including healthy tissue and in the subcutaneous layer Percentage of wound debrided: 100 Instrument Used: 7mm curette Tissue Removed: Yellow slough, devitalized tissue Severity: Fat Layer Exposed Amount of bleeding with debridement: Mild Bleeding Controlled with: Compression and gauze Patient tolerated procedure: Patient tolerated procedure well Post-Debridement Measurements and Additional Note: Post-Debridement Measurements/Treatment WC - Nurse 1 - General Ulcer Assessment Start: 05/13/23 10:23 Freq: Status: Active Protocol: ONDINA Activity Type Activity Date Activity User E-sign Co-sign Detail Recorded Client Recorded Date Recorded By Document 05/13/23 10:23 KARTHIK [id number] 05/13/23 10:35 KARTHIK 05/13/23 10:23 - Today's Visit Information Type of service Follow-up Visit (Physician/APPLICATIONS SPECIALIST ) Arrival Mode Ambulatory, Walker Patient Identification Verified (Name & Yes ) Patient Requires Transmission-Based No Precautions Vital Signs Temperature (97.8 F-99.1 F) 96.9 F L Temperature Source Temporal Pulse Rate (60-100) 60 Pulse Location Monitor Respiratory Rate (12-18) 18 Respiratory rate source Observation Blood Pressure (90/60-120/80) 104/64 Blood Pressure Mean (mm Hg) 77 Source Monitor Position Semi-Fowlers Blood Pressure Location Right Arm History Since Last Visit- (Skip if this is Patient's initial visit) Have you changed medications since your No last visit? Any new allergies or adverse reactions No Had a fall/change in ADL's that may No increase risk of falls Signs or symptoms of abuse and/or No neglect since last visit Have you been in the hospital since your No last visit? Has dressing in place as prescribed Yes Has compression in place as prescribed Yes Has offloadiing in place as prescribed N/A Experienced any changes in pain level or No management Left Footwear Regular Shoe Right Footwear Regular Shoe Pain Scale: 0-10 Numeric Is Patient Pain Free? Yes - Nurse 1 - General Ulcer Measurement Start: 05/13/23 10:23 Freq: Status: Active Protocol: Activity Type Activity Date Activity User E-sign Co-sign Detail Recorded Client Recorded Date Recorded By Document 05/13/23 10:23 JF [id number] 05/13/23 10:35 KARTHIK 05/13/23 10:23 Wound Center Nurse 1 #18 Left medial LE cluster -Combined with other wound No -Current Size (cm) - Length 6.4 -Current Size (cm) - Width 15.5 -Current Size (cm) - Depth 0.2 -Total Square Cm 99.20 -Photo Taken Yes -Epithelialization None Present -Tunneling No -Undermining/Tunneling No -Circular Undermining No -Exudate Amt Large -Exudate Type Serosanguineous -Wound Margin Flat & Intact -Granulation Amt Large (67-100%) -Granulation Quality Red -Slough/Fibrin Yes -Necrosis Amt Small (1-33%) -Necrotic Tissue Type Adherent Slough -Structure Exposed N/A -Texture (Marie-wound Skin Appearance) Assessed, Localized Edema -Moisture (Marie-wound Skin Appearance) Assessed,Dry/ Scaly -Color (Marie-wound Skin Appearance) Assessed, Hemosiderin Staining -Temperature (Marie-wound Skin No Abnormality Appearance) (Pt Warm) -Tenderness on Palpation (Marie-wound No Skin Appearance) -Ulcer Cleansing Wound Cleanser -Foul Odor after Cleansing No -Anesthetic Used 5% Lidocaine Gel Lower Limb Edema Present Yes Left Calf (cm) 46.3 Left Ankle (cm) 31.0 WC - Nurse 2 - General Ulcer CM Notes Start: 05/13/23 10:23 Freq: Status: Active Protocol: Activity Type Activity Date Activity User E-sign Co-sign Detail Recorded Client Recorded Date Recorded By Document 05/13/23 11:44 MW [id number] 05/13/23 11:58 MW 05/13/23 11:44 Wound Center Nurse 2 #18 Left medial LE cluster -Time 11:44 -Correct Patient Yes -Correct Side, Site, Position Yes -Correct Procedure Yes -Procedure Performed Yes -Type of Procedure Debridement -Clinical Debridement Subcutaneous -Tissue Removed Subcutaneous -Post Debridement (cm) - Length 6.6 -Post Debridement (cm) - Width 12.5 -Post Debridement (cm) - Depth 0.2 -Total Square (Post) (cm) 82.50 -Area of Debridement (cm) - Length 6.6 -Area of Debridement (cm) - Width 12.5 -Total Square (Area) (cm) 82.50 -Tunneling No -Undermining/Tunneling No -Circular Undermining No -Wound/Ulcer Outcome Not Healed -Ulcer Cleansing Rinsed/ Irrigated with Saline -Foul Odor after Cleansing No -Bioengineered Tissue No -Bleeding Controlled with Pressure -Treatment Response Procedure Tolerated Well -Debridement - Subq, 1st 20sq cm Yes -Debridement, SubQ, ea addt'l 20sq cm 4 or part thereof Pain Scale: 0-10 Numeric Is Patient Pain Free? Yes WC - Nurse 3 - General Ulcer D/C NN Start: 05/13/23 10:23 Freq: Status: Active Protocol: Activity Type Activity Date Activity User E-sign Co-sign Detail Recorded Client Recorded Date Recorded By Document 05/13/23 12:01 KARTHIK [id number] 05/13/23 12:03 KARTHIK 05/13/23 12:01 Wound Care Center Nurse 3 #18 Left medial LE cluster -Ulcer Cleansing Rinsed/ Irrigated with Saline -Foul Odor after Cleansing No -Other Dressing dakin's 0.25% -Primary Dressing Covered/Secured with Dry Gauze & Roll Gauze, Secured with Tape -Other Covering ABD pad Right -Tubular Bandage Single Layer -Size of Tubigrip Used Size E -Size E ($) 1 Left -Tubular Bandage Single Layer -Size of Tubigrip Used Size E -Size E ($) 1 Pain Scale: 0-10 Numeric Is Patient Pain Free? Yes - Visit Discharge Discharge Condition Stable Ambulatory Status Ambulatory, Walker Transportation Private Auto Accompanied by [facility] Medication Reconcilliation completed & Yes provided to patient/care provider Clinical Summary of Care Provided Yes Assessment/Plan Assessment/Plan (1) Ulcer of left lower extremity with fat layer exposed: CODE(S): L97.922 - Non-pressure chronic ulcer of unspecified part of left lower leg with fat layer exposed (2) Venous insufficiency: CODE(S): I87.2 - Venous insufficiency (chronic) (peripheral) (3) Edema: CODE(S): R60.9 - Edema, unspecified QUALIFIERS: Edema type: unspecified Qualified Code(s): R60.9 - Edema, unspecified (4) History of CVA (cerebrovascular accident): CODE(S): Z86.73 - Personal history of transient ischemic attack (TIA), andcerebral infarction without residual deficits (5) 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 At home wound-care instructions: Continue Dakins, cover with ABD and wrap with gauze and use compression with tubigrips and continue lasix 3 tabs BID. If unable to tolerate Dakins, then would have him use Aquacel Ag and ABD and gauze and may need to do IV antibiotic treatment for Pseudomonas. Hold Epifix due to infection. Off-loading: The patient was instructed to avoid pressure and friction on the affected areas. Reposition every 2 hours at minimum. Avoid prolonged standing and/or dangling of legs. When seated, feet should be elevated at chest level. Frequent ambulation is encouraged. Encouraged lymphedema pump use. Diet: Patient encouraged to increase protein intake while taking caution to avoid high carbohydrate and/or sugar intake. Labs/cultures/imaging: Wound culture showed 1+ Pseudomonas that is resistant to oral antibiotics. Wound culture repeated today and if increased amount of Pseudomonas then will proceed with IV antibiotic treatment. Follow-up: Return in 2 weeks for wound care follow up and have secondary dressing changed by home health Tuesday and Tuesday. Return sooner or report tothe emergency room should symptoms worsen, or new symptoms arise. Note: [employer] speech recognition hair tinter software was used to create portions of this document. Sound-alike and misspelled words, as well as other hair tinter errors may be contained in the documentation. 05/13/23 1352 <Electronically signed by Patricia Garcia DO> Cosigner Signature (if applicable): CC: ~ Signed [facility] Work Phone: [phone]) 937-262006-30-2023 Progress note Author Patricia Garcia [facility] April 08, 2023 2:16pm Note Date/Time April 08, 2023 2:16 pm [facility] [address] [place] [id number] Progress Note - Wound Care 04/08/23 1409 MR#: [id number] Acct: [id number] Name: ESTEBAN URBINA Rep #:[id number] : 1955 67 From: Patricia Garcia DO PCP: Dr. Patricia Garcia DO Status:REG RCR Location: History of Present Illness Date of Service: 04/08/23 Chief Complaint: venous ulcers of left lower extremity History of Wound: Mauricio is a 67 yo gentleman who is here today for evaluation of ulcers to to his bilateral lower legs. He has been treated multiple times in [facility] at the wound healing center for similar ulcers. The left LE ulcer started after he developed increased swelling and blisters of left leg in October and the right leg started sometime at the end of October. He was seen at PCP's office a culture was taken and it was resistant to several antibiotics. He was treated initially with Levaquin but had myalgias and then was treated with doxycycline which he finished 2 days ago. He denies improvementand is having swelling to his left calf and thigh. He has been having swelling to both lower extremities for many years and it has worsened over the last few months. He has not been compliant with compression. He has had increased pain especially in the left leg. He has clear yellow drainage and redness without odor or warmth. He is anti-coagulated on coumadin. He has been washing with Dial soap and witch ifrah. He had been using Collagen at times and using Calcium Alginate and covering with ABD pads during October. He was treated with 3M compression and Aquacel Ag. He was referred to the wound center for ongoing treatment. His ulcers have moderate to heavy drainage. He was recently hospitalized for cellulitis and edema for the last 10 days. He was in the hospital from 11/30/22 until 12/09/22 for treatment of cellulitis and edema. He underwent treatment with Vancomycin and IV lasix and compression. Discharged on 12/09/22 and is currently in the Skilled section of [facility]. He returned to his assisted living apartment on Tuesday12/21/22. Subjective Subjective He tolerated treatment with Epifix and fibracol and ABDs and tubigrips. His leftlower leg ulcers are slightly improved this week but edema is about the same. Denies fever, chills, increased pain or increased drainage. Objective Data Objective Data Vital Signs: Vital Signs Temp Pulse Resp BP 97 F L 68 18 124/66 H 04/08/23 09:55 04/08/23 09:55 04/08/23 09:55 04/08/23 09:55 Physical Exam Const alert, oriented x3 and no apparent distress General Appearance: cooperative and comfortable HEENT normocephalic and head/scalp atraumatic Lymph Lymphatic: lymphedema moderate Resp normal respiratory effort Effort and Inspection: able to speak in complete sentences Cardio regular rate and regular rhythm Extremity General Extremity: edema bilateral lower extremity Details: severe Skin Wounds: wounds noted Wound Narrative: as in clinical panel Psych mental status grossly normal, thought process normal, cooperative and affect normal Debridement Note Debridement Note Wound debrided: Left lateral LE cluster Laterality: Left No debridement was completed: No debridement was completed today Post-Debridement Measurements and Additional Note: Post-Debridement Measurements/Treatment - Nurse 1 - General Ulcer Assessment Start: 03/11/23 09:44 Freq: Status: Active Protocol: ONDINA Activity Type Activity Date Activity User E-sign Co-sign Detail Recorded Client Recorded Date Recorded By Document 03/11/23 09:44 AK [id number] 03/11/23 09:46 AK Document 03/18/23 09:41 DL [id number] 03/18/23 09:52 DL Document 03/25/23 11:57 AK [id number] 03/25/23 12:00 AK Document 04/01/23 10:17 RB [id number] 04/01/23 10:29 RB Document 04/08/23 09:55 RB [id number] 04/08/23 09:57 RB 03/11/23 03/18/23 03/25/23 09:44 09:41 11:57 - Today's Visit Information Type of service Follow-up Visit Follow-up Visit Follow-up Visit (Physician/APPLICATIONS SPECIALIST (Physician/APPLICATIONS SPECIALIST (Physician/APPLICATIONS SPECIALIST ) ) ) Arrival Mode Ambulatory Ambulatory, Ambulatory, Walker Walker Transfer Assistance None Patient Identification Verified (Name & No Yes Yes ) Patient Requires Transmission-Based No No No Precautions Vital Signs Temperature (97.8 F-99.1 F) 97.4 F L 97.2 F L 96.9 F L Temperature Source Temporal Temporal Temporal Pulse Rate (60-100) 77 64 65 Pulse Location Monitor Monitor Monitor Respiratory Rate (12-18) 20 H Respiratory rate source Observation Blood Pressure (90/60-120/80) 126/77 H 101/60 100/62 Blood Pressure Mean (mm Hg) 93 73 74 Source Monitor Monitor Monitor Position Blood Pressure Location History Since Last Visit- (Skip if this is Patient's initial visit) Have you changed medications since your No No No last visit? Any new allergies or adverse reactions No No No Had a fall/change in ADL's that may No No No increase risk of falls Signs or symptoms of abuse and/or No No No neglect since last visit Have you been in the hospital since your No No No last visit? Has dressing in place as prescribed Yes Yes No Has compression in place as prescribed N/A Yes Yes Has offloadiing in place as prescribed N/A N/A Yes Experienced any changes in pain level or No No No management Left Footwear Regular Shoe Regular Shoe Right Footwear Regular Shoe Regular Shoe Pain Scale: 0-10 Numeric Is Patient Pain Free? Yes Yes No 04/01/23 04/08/23 10:17 09:55 - Today's Visit Information Type of service Follow-up Visit Follow-up Visit (Physician/APPLICATIONS SPECIALIST (Physician/APPLICATIONS SPECIALIST ) ) Arrival Mode Ambulatory, Ambulatory, Walker Walker Transfer Assistance None None Patient Identification Verified (Name & Yes Yes ) Patient Requires Transmission-Based No No Precautions Vital Signs Temperature (97.8 F-99.1 F) 97 F L 97 F L Temperature Source Temporal Temporal Pulse Rate (60-100) 61 68 Pulse Location Monitor Monitor Respiratory Rate (12-18) 18 18 Respiratory rate source Observation Observation Blood Pressure (90/60-120/80) 104/64 124/66 H Blood Pressure Mean (mm Hg) 77 85 Source Monitor Monitor Position Semi-Fowlers Semi-Fowlers Blood Pressure Location Left Arm Left Arm History Since Last Visit- (Skip if this is Patient's initial visit) Have you changed medications since your No No last visit? Any new allergies or adverse reactions No No Had a fall/change in ADL's that may No No increase risk of falls Signs or symptoms of abuse and/or No No neglect since last visit Have you been in the hospital since your No No last visit? Has dressing in place as prescribed Yes Yes Has compression in place as prescribed Yes Yes Has offloadiing in place as prescribed No No Experienced any changes in pain level or No No management Left Footwear Right Footwear Pain Scale: 0-10 Numeric Is Patient Pain Free? Yes Yes - Nurse 1 - General Ulcer Measurement Start: 03/11/23 09:44 Freq: Status: Active Protocol: Activity Type Activity Date Activity User E-sign Co-sign Detail Recorded Client Recorded Date Recorded By Document 03/11/23 09:44 AK [id number] 03/11/23 09:46 AK Document 03/18/23 09:41 DL [id number] 03/18/23 09:52 DL Document 03/25/23 11:57 AK [id number] 03/25/23 12:00 AK Document 04/01/23 10:17 RB [id number] 04/01/23 10:29 RB Document 04/08/23 09:55 RB [id number] 04/08/23 09:57 RB 03/11/23 03/18/23 03/25/23 09:44 09:41 11:57 Wound Center Nurse 1 #21 LEFT [place] -Combined with other wound No -Current Size (cm) - Length 2.2 5 -Current Size (cm) - Width 0.8 3 -Current Size (cm) - Depth 0.1 0.1 -Total Square Cm 1.76 15 -Photo Taken No -Tunneling No -Undermining/Tunneling No -Circular Undermining No -Change in Wound Grade/Stage No -Exudate Amt Small Large -Exudate Type Serosanguineous Serosanguineous -Wound Margin Distinct, Distinct, Outline Outline Attached Attached -Granulation Amt Large (67-100%) Large (67-100%) -Granulation Quality Red Red -Slough/Fibrin Yes -Necrosis Amt Small (1-33%) Small (1-33%) -Necrotic Tissue Type Adherent Slough Adherent Slough -Structure Exposed N/A N/A -Texture (Marie-wound Skin Appearance) Scarring No Abnormality, Assessed -Moisture (Marie-wound Skin Appearance) Dry/Scaly No Abnormality, Assessed -Color (Marie-wound Skin Appearance) Hemosiderin No Abnormality, Staining Assessed -Temperature (Marie-wound Skin No Abnormality No Abnormality Appearance) (Pt Warm) (Pt Warm) -Tenderness on Palpation (Marie-wound No No Skin Appearance) -Ulcer Cleansing Not Cleansed Rinsed/ Irrigated with Saline -Foul Odor after Cleansing No No -Anesthetic Used 5% Lidocaine 5% Lidocaine Gel Gel #19 Left Lateral LE cluster -Combined with other wound No No -Current Size (cm) - Length 7 0.1 0.5 -Current Size (cm) - Width 10.5 0.1 0.5 -Current Size (cm) - Depth 0.1 0.1 0.1 -Total Square Cm 73.5 0.01 0.25 -Photo Taken Yes No -Tunneling No No -Undermining/Tunneling No No -Circular Undermining No No -Change in Wound Grade/Stage No No -Exudate Amt Medium None Present Medium -Exudate Type Serosanguineous Serosanguineous -Wound Margin Distinct, Thickened Distinct, Outline Outline Attached Attached -Granulation Amt Large (67-100%) None Present (0 Large (67-100%) %) -Granulation Quality Hyper- Red granulation, Lingle -Slough/Fibrin No Yes -Necrosis Amt None Present (0 Small (1-33%) Small (1-33%) %) -Necrotic Tissue Type Adherent Slough Adherent Slough -Structure Exposed N/A N/A N/A -Texture (Marie-wound Skin Appearance) Assessed, Scarring No Abnormality, Scarring Assessed -Moisture (Marie-wound Skin Appearance) No Abnormality Dry/Scaly No Abnormality, Assessed -Color (Marie-wound Skin Appearance) No Abnormality, Hemosiderin No Abnormality, Assessed Staining Assessed -Temperature (Marie-wound Skin No Abnormality No Abnormality No Abnormality Appearance) (Pt Warm) (Pt Warm) (Pt Warm) -Tenderness on Palpation (Marie-wound No No No Skin Appearance) -Ulcer Cleansing Soap and Water Soap and Water Rinsed/ Irrigated with Saline -Foul Odor after Cleansing No No No -Anesthetic Used 4% Lidocaine 5% Lidocaine 5% Lidocaine Solution Gel Gel #18 Left medial LE cluster -Combined with other wound No No -Current Size (cm) - Length 6.5 5.8 5.8 -Current Size (cm) - Width 4 10 10 -Current Size (cm) - Depth 0.1 0.2 0.2 -Total Square Cm 26.0 58.0 58.0 -Photo Taken Yes No -Tunneling No No -Undermining/Tunneling No No -Circular Undermining No No -Change in Wound Grade/Stage No No -Exudate Amt Medium Medium -Exudate Type Serosanguineous Serosanguineous Serosanguineous -Wound Margin Distinct, Distinct, Distinct, Outline Outline Outline Attached Attached Attached -Granulation Amt Large (67-100%) Medium (34-66%) Medium (34-66%) -Granulation Quality Lingle Red Red -Slough/Fibrin Yes Yes -Necrosis Amt Small (1-33%) Medium (34-66%) Medium (34-66%) -Necrotic Tissue Type Adherent Slough Adherent Slough Adherent Slough -Structure Exposed N/A N/A N/A -Texture (Marie-wound Skin Appearance) Assessed, Scarring No Abnormality, Scarring Assessed -Moisture (Marie-wound Skin Appearance) Assessed Dry/Scaly No Abnormality, Assessed -Color (Marie-wound Skin Appearance) Assessed, Hemosiderin No Abnormality, Hemosiderin Staining Assessed Staining -Temperature (Marie-wound Skin No Abnormality No Abnormality No Abnormality Appearance) (Pt Warm) (Pt Warm) (Pt Warm) -Tenderness on Palpation (Marie-wound Yes No No Skin Appearance) -Ulcer Cleansing Soap and Water Soap and Water -Foul Odor after Cleansing No No No -Anesthetic Used 4% Lidocaine 5% Lidocaine 5% Lidocaine Solution Gel Gel Lower Limb Edema Present Right Calf (cm) 42.6 Right Ankle (cm) 30 Left Calf (cm) 42.5 Left Ankle (cm) 27 04/01/23 04/08/23 10:17 09:55 Wound Center Nurse 1 #21 LEFT [place] -Combined with other wound No -Current Size (cm) - Length 1.4 -Current Size (cm) - Width 0.7 -Current Size (cm) - Depth 0.1 -Total Square Cm 0.98 -Photo Taken -Tunneling No No -Undermining/Tunneling No No -Circular Undermining No No -Change in Wound Grade/Stage -Exudate Amt Medium Large -Exudate Type Serosanguineous Serosanguineous -Wound Margin Distinct, Distinct, Outline Outline Attached Attached -Granulation Amt Medium (34-66%) Medium (34-66%) -Granulation Quality Lingle Lingle -Slough/Fibrin Yes Yes -Necrosis Amt Medium (34-66%) Medium (34-66%) -Necrotic Tissue Type Adherent Slough Adherent Slough -Structure Exposed N/A N/A -Texture (Marie-wound Skin Appearance) Assessed Assessed -Moisture (Marie-wound Skin Appearance) Assessed Assessed -Color (Marie-wound Skin Appearance) Assessed Assessed -Temperature (Marie-wound Skin No Abnormality No Abnormality Appearance) (Pt Warm) (Pt Warm) -Tenderness on Palpation (Marie-wound No No Skin Appearance) -Ulcer Cleansing Wound Cleanser Wound Cleanser -Foul Odor after Cleansing No No -Anesthetic Used 5% Lidocaine 5% Lidocaine Gel Gel #19 Left Lateral LE cluster -Combined with other wound No -Current Size (cm) - Length 0.1 -Current Size (cm) - Width 0.1 -Current Size (cm) - Depth 0.1 -Total Square Cm 0.01 -Photo Taken -Tunneling No No -Undermining/Tunneling No No -Circular Undermining No No -Change in Wound Grade/Stage -Exudate Amt Medium Large -Exudate Type Serosanguineous Serosanguineous -Wound Margin Distinct, Distinct, Outline Outline Attached Attached -Granulation Amt Medium (34-66%) Medium (34-66%) -Granulation Quality Lingle Lingle -Slough/Fibrin Yes Yes -Necrosis Amt Medium (34-66%) Medium (34-66%) -Necrotic Tissue Type Adherent Slough Adherent Slough -Structure Exposed N/A N/A -Texture (Marie-wound Skin Appearance) Assessed Assessed -Moisture (Marie-wound Skin Appearance) Assessed Assessed -Color (Marie-wound Skin Appearance) Assessed Assessed -Temperature (Marie-wound Skin No Abnormality No Abnormality Appearance) (Pt Warm) (Pt Warm) -Tenderness on Palpation (Marie-wound No No Skin Appearance) -Ulcer Cleansing Wound Cleanser Wound Cleanser -Foul Odor after Cleansing No No -Anesthetic Used 5% Lidocaine 5% Lidocaine Gel Gel #18 Left medial LE cluster -Combined with other wound No -Current Size (cm) - Length 5.7 -Current Size (cm) - Width 11 -Current Size (cm) - Depth 0.3 -Total Square Cm 62.7 -Photo Taken -Tunneling No No -Undermining/Tunneling No No -Circular Undermining No No -Change in Wound Grade/Stage -Exudate Amt Medium Medium -Exudate Type Serosanguineous Serosanguineous -Wound Margin Thickened & Distinct, Rolled Under Outline Attached -Granulation Amt Medium (34-66%) Medium (34-66%) -Granulation Quality Lingle Lingle -Slough/Fibrin Yes Yes -Necrosis Amt Medium (34-66%) Medium (34-66%) -Necrotic Tissue Type Adherent Slough Adherent Slough -Structure Exposed N/A N/A -Texture (Marie-wound Skin Appearance) Assessed Assessed -Moisture (Marie-wound Skin Appearance) Assessed Assessed -Color (Marie-wound Skin Appearance) Assessed Assessed -Temperature (Marie-wound Skin No Abnormality No Abnormality Appearance) (Pt Warm) (Pt Warm) -Tenderness on Palpation (Marie-wound No No Skin Appearance) -Ulcer Cleansing Wound Cleanser Wound Cleanser -Foul Odor after Cleansing No No -Anesthetic Used 5% Lidocaine 5% Lidocaine Gel Gel Lower Limb Edema Present Yes Right Calf (cm) Right Ankle (cm) Left Calf (cm) 43 Left Ankle (cm) 30 WC - Nurse 2 - General Ulcer CM Notes Start: 03/11/23 09:44 Freq: Status: Active Protocol: Activity Type Activity Date Activity User E-sign Co-sign Detail Recorded Client Recorded Date Recorded By Document 03/11/23 10:24 MW [id number] 03/11/23 10:35 MW Edit Result 03/11/23 10:24 MW (1) [id number] 03/11/23 10:36 MW Document 03/18/23 10:28 MW [id number] 03/18/23 10:49 MW Document 03/25/23 11:16 MW [id number] 03/25/23 11:31 MW Document 04/01/23 10:35 MW [id number] 04/01/23 10:58 MW Document 04/08/23 10:32 JF [id number] 04/08/23 10:36 JF (1) #21 LEFT [place] - Debridement - Subq, 1st 20sq cm No => Yes 03/11/23 03/18/23 03/25/23 10:24 10:28 11:16 Wound Center Nurse 2 #21 LEFT [place] -Time 10:25 10:32 11:17 -Correct Patient Yes Yes Yes -Correct Side, Site, Position Yes Yes Yes -Correct Procedure Yes Yes Yes -Procedure Performed Yes Yes Yes -Type of Procedure Debridement Debridement Debridement -Clinical Debridement Subcutaneous Subcutaneous Subcutaneous -Tissue Removed Subcutaneous Subcutaneous Subcutaneous -Post Debridement (cm) - Length 2.5 2.0 3.0 -Post Debridement (cm) - Width 1.9 1.0 1.0 -Post Debridement (cm) - Depth 0.1 0.1 0.1 -Total Square (Post) (cm) 4.75 2.00 3.00 -Area of Debridement (cm) - Length 2.5 2.0 3.0 -Area of Debridement (cm) - Width 1.9 1.0 1.0 -Total Square (Area) (cm) 4.75 2.00 3.00 -Tunneling No No No -Undermining/Tunneling No No No -Circular Undermining No No No -Wound/Ulcer Outcome Not Healed Not Healed Not Healed -Ulcer Cleansing Rinsed/ Rinsed/ Rinsed/ Irrigated with Irrigated with Irrigated with Saline Saline Saline -Foul Odor after Cleansing No No No -Bioengineered Tissue No No No -Bleeding Controlled with Pressure Pressure Pressure -Treatment Response Procedure Procedure Procedure Tolerated Well Tolerated Well Tolerated Well -Offloading No No No -Debridement - Subq, 1st 20sq cm Yes Yes Yes #19 Left Lateral LE cluster -Time 10:24 10:33 11:19 -Correct Patient Yes Yes Yes -Correct Side, Site, Position Yes Yes Yes -Correct Procedure Yes Yes Yes -Procedure Performed Yes Yes Yes -Type of Procedure Debridement Debridement Debridement -Clinical Debridement Subcutaneous Subcutaneous Subcutaneous -Tissue Removed Subcutaneous Subcutaneous Subcutaneous -Post Debridement (cm) - Length 0.8 0.3 0.9 -Post Debridement (cm) - Width 0.7 0.3 0.3 -Post Debridement (cm) - Depth 0.1 0.1 0.1 -Total Square (Post) (cm) 0.56 0.09 0.27 -Area of Debridement (cm) - Length 0.8 0.3 0.9 -Area of Debridement (cm) - Width 0.7 0.3 0.3 -Total Square (Area) (cm) 0.56 0.09 0.27 -Tunneling No No No -Undermining/Tunneling No No No -Circular Undermining No No No -Wound/Ulcer Outcome Not Healed Not Healed Not Healed -Ulcer Cleansing Rinsed/ Wound Cleanser Rinsed/ Irrigated with Irrigated with Saline Saline -Foul Odor after Cleansing No No No -Bioengineered Tissue No No No -Bleeding Controlled with Pressure Pressure Pressure -Treatment Response Procedure Procedure Procedure Tolerated Well Tolerated Well Tolerated Well -Offloading No No No -Debridement - Subq, 1st 20sq cm No No No #18 Left medial LE cluster -Time 10:24 10:34 11:20 -Correct Patient Yes Yes Yes -Correct Side, Site, Position Yes Yes Yes -Correct Procedure Yes Yes Yes -Procedure Performed Yes Yes Yes -Type of Procedure Debridement Debridement Debridement -Clinical Debridement Subcutaneous Subcutaneous Subcutaneous -Tissue Removed Subcutaneous Subcutaneous Subcutaneous -Post Debridement (cm) - Length 6.5 6.1 5.8 -Post Debridement (cm) - Width 9.1 9.5 9.0 -Post Debridement (cm) - Depth 0.2 0.2 0.2 -Total Square (Post) (cm) 59.15 57.95 52.20 -Area of Debridement (cm) - Length 6.5 6.4 5.8 -Area of Debridement (cm) - Width 9.1 9.5 9.0 -Total Square (Area) (cm) 59.15 60.80 52.20 -Tunneling No No No -Undermining/Tunneling No No No -Circular Undermining No No No -Wound/Ulcer Outcome Not Healed Not Healed Not Healed -Ulcer Cleansing Rinsed/ Rinsed/ Rinsed/ Irrigated with Irrigated with Irrigated with Saline Saline Saline -Foul Odor after Cleansing No No No -Bioengineered Tissue Yes Yes Yes -Type of Bioengineered Tissue Epifix Mesh Epifix Mesh Epifix Mesh -Expiration Date 01/09/28 01/09/28 01/09/28 -Product Lot Number [id number] -Percent Used 100 100 100 -Lot number of Saline Used [id number] -Bleeding Controlled with Pressure Pressure Pressure -Treatment Response Procedure Procedure Procedure Tolerated Well Tolerated Well Tolerated Well -Offloading No No No -Debridement - Subq, 1st 20sq cm No No No -Apply Skin Sub - 1st 25 sq cm - Legs 1 1 1 -Apply Skin Sub - each addt'l 25 sq cm - Legs -Epifix Mesh (per sq cm) 11 11 11 Pain Scale: 0-10 Numeric Is Patient Pain Free? Yes Yes Yes 04/01/23 04/08/23 10:35 10:32 Wound Center Nurse 2 #21 LEFT [place] -Time 10:39 -Correct Patient Yes No -Correct Side, Site, Position Yes No -Correct Procedure Yes No -Procedure Performed Yes No -Type of Procedure Debridement -Clinical Debridement Subcutaneous -Tissue Removed Subcutaneous -Post Debridement (cm) - Length 1.4 0 -Post Debridement (cm) - Width 0.6 0 -Post Debridement (cm) - Depth 0.1 0 -Total Square (Post) (cm) 0.84 0 -Area of Debridement (cm) - Length 1.4 0 -Area of Debridement (cm) - Width 0.6 0 -Total Square (Area) (cm) 0.84 0 -Tunneling No -Undermining/Tunneling No -Circular Undermining No -Wound/Ulcer Outcome Not Healed Healed- Epithelialized -Ulcer Cleansing Rinsed/ Irrigated with Saline -Foul Odor after Cleansing No -Bioengineered Tissue No -Bleeding Controlled with Pressure -Treatment Response Procedure Tolerated Well -Offloading No -Debridement - Subq, 1st 20sq cm Yes #19 Left Lateral LE cluster -Time 10:40 -Correct Patient Yes No -Correct Side, Site, Position Yes No -Correct Procedure Yes No -Procedure Performed Yes No -Type of Procedure Debridement -Clinical Debridement Subcutaneous -Tissue Removed Subcutaneous -Post Debridement (cm) - Length 0.8 0 -Post Debridement (cm) - Width 0.2 0 -Post Debridement (cm) - Depth 0.1 0 -Total Square (Post) (cm) 0.16 0 -Area of Debridement (cm) - Length 0.8 0 -Area of Debridement (cm) - Width 0.2 0 -Total Square (Area) (cm) 0.16 0 -Tunneling No -Undermining/Tunneling No -Circular Undermining No -Wound/Ulcer Outcome Not Healed Healed- Epithelialized -Ulcer Cleansing Rinsed/ Irrigated with Saline -Foul Odor after Cleansing No -Bioengineered Tissue No -Bleeding Controlled with Pressure -Treatment Response Procedure Tolerated Well -Offloading No -Debridement - Subq, 1st 20sq cm No #18 Left medial LE cluster -Time 10:40 10:32 -Correct Patient Yes Yes -Correct Side, Site, Position Yes Yes -Correct Procedure Yes Yes -Procedure Performed Yes Yes -Type of Procedure Debridement Debridement -Clinical Debridement Subcutaneous Subcutaneous -Tissue Removed Subcutaneous Subcutaneous -Post Debridement (cm) - Length 6.0 6.0 -Post Debridement (cm) - Width 10.0 10.0 -Post Debridement (cm) - Depth 0.2 0.2 -Total Square (Post) (cm) 60.00 60.00 -Area of Debridement (cm) - Length 6.0 6.0 -Area of Debridement (cm) - Width 10.0 10.0 -Total Square (Area) (cm) 60.00 60.00 -Tunneling No No -Undermining/Tunneling No No -Circular Undermining No No -Wound/Ulcer Outcome Not Healed Not Healed -Ulcer Cleansing Rinsed/ Rinsed/ Irrigated with Irrigated with Saline Saline -Foul Odor after Cleansing No No -Bioengineered Tissue Yes Yes -Type of Bioengineered Tissue Epifix Mesh Epifix Mesh -Expiration Date 01/09/28 01/09/28 -Product Lot Number [id number] -Percent Used 100 100 -Lot number of Saline Used [id number] -Bleeding Controlled with Pressure Pressure -Treatment Response Procedure Procedure Tolerated Well Tolerated Well -Offloading No No -Debridement - Subq, 1st 20sq cm No No -Apply Skin Sub - 1st 25 sq cm - Legs 1 1 -Apply Skin Sub - each addt'l 25 sq cm 2 - Legs -Epifix Mesh (per sq cm) 11 11 Pain Scale: 0-10 Numeric Is Patient Pain Free? Yes Yes WC - Nurse 3 - General Ulcer D/C NN Start: 03/11/23 09:44 Freq: Status: Active Protocol: Activity Type Activity Date Activity User E-sign Co-sign Detail Recorded Client Recorded Date Recorded By Document 03/11/23 10:58 RB [id number] 03/11/23 10:59 RB Document 03/18/23 11:07 RB [id number] 03/18/23 11:09 RB Document 03/25/23 13:11 RB [id number] 03/25/23 13:13 RB Document 04/01/23 10:59 [id number] 04/01/23 11:00 MW Document 04/08/23 11:12 RB [id number] 04/08/23 11:13 RB 03/11/23 03/18/23 03/25/23 10:58 11:07 13:11 Wound Care Center Nurse 3 #21 LEFT [place] -Ulcer Cleansing Rinsed/ Irrigated with Saline -Foul Odor after Cleansing -Negative Pressure Wound Therapy -Primary Dressing Applied Aquacel Extra Aquacel Extra Aquacel Extra -Other Dressing abd ABD -Primary Dressing Covered/Secured with Dry Gauze,Dry Dry Gauze,Dry Dry Gauze & Gauze & Roll Gauze & Roll Roll Gauze Gauze,Secured Gauze,Secured with Tape with Tape -Other Covering -Aquacel Extra 2 1 1 -Fibracol Plus 4x4 #19 Left Lateral LE cluster -Ulcer Cleansing -Foul Odor after Cleansing -Negative Pressure Wound Therapy -Other Dressing aquacel extra , aquacel extra/ aquacel extra/ abd abd ABD -Primary Dressing Covered/Secured with Dry Gauze & Dry Gauze & Roll Gauze, Roll Gauze, Secured with Secured with Tape Tape -Other Covering #18 Left medial LE cluster -Ulcer Cleansing Rinsed/ Irrigated with Saline -Foul Odor after Cleansing -Negative Pressure Wound Therapy -Primary Dressing Applied -Other Dressing aquacel extra aquacel extra/ aquacel extra/ abd abd ABD -Primary Dressing Covered/Secured with Dry Gauze & Dry Gauze & Roll Gauze, Roll Gauze, Secured with Secured with Tape Tape -Other Covering -Fibracol Plus 4x4 Right -Lotion applied to leg before compression wrap -Compression Wrap -Tubular Bandage Single Layer -Size of Tubigrip Used Size E -Size E ($) 1 -Other pt own tubigrip single layer size E Left -Lotion applied to leg before compression wrap -Compression Wrap -Tubular Bandage Single Layer Single Layer -Size of Tubigrip Used Size E Size E -Size E ($) 1 1 Treatment Response Procedure Procedure Tolerated Well Tolerated Well Pain Scale: 0-10 Numeric Is Patient Pain Free? Yes Yes Yes Teaching: Wound Center Dressing Your Wound -Person Taught -Teaching Method -Response to teaching WC - Visit Discharge Discharge Condition Stable Stable Stable Ambulatory Status Ambulatory, Ambulatory, Ambulatory, Walker Walker Walker Transportation Private Auto [facility] transport Private Auto Accompanied by Medication Reconcilliation completed & No No No provided to patient/care provider Clinical Summary of Care Provided Yes Yes Yes 04/01/23 04/08/23 10:59 11:12 Wound Care Center Nurse 3 #21 LEFT [place] -Ulcer Cleansing Rinsed/ Irrigated with Saline -Foul Odor after Cleansing No -Negative Pressure Wound Therapy N/A -Primary Dressing Applied Fibracol Plus 4x4 -Other Dressing -Primary Dressing Covered/Secured with Dry Gauze & Roll Gauze, Secured with Tape -Other Covering ABD -Aquacel Extra -Fibracol Plus 4x4 1 #19 Left Lateral LE cluster -Ulcer Cleansing Rinsed/ Irrigated with Saline -Foul Odor after Cleansing No -Negative Pressure Wound Therapy N/A -Other Dressing FIBRACOL PLUS -Primary Dressing Covered/Secured with Dry Gauze & Roll Gauze, Secured with Tape -Other Covering ABD #18 Left medial LE cluster -Ulcer Cleansing Rinsed/ Rinsed/ Irrigated with Irrigated with Saline Saline -Foul Odor after Cleansing No -Negative Pressure Wound Therapy N/A -Primary Dressing Applied Fibracol Plus 4x4 -Other Dressing FIBRACOL PLUS abd -Primary Dressing Covered/Secured with Dry Gauze & Dry Gauze,Dry Roll Gauze, Gauze & Roll Secured with Gauze,Secured Tape with Tape -Other Covering ABD -Fibracol Plus 4x4 1 Right -Lotion applied to leg before No compression wrap -Compression Wrap Kishore Wrap -Tubular Bandage -Size of Tubigrip Used -Size E ($) -Other Left -Lotion applied to leg before No compression wrap -Compression Wrap Kishore Wrap -Tubular Bandage Single Layer -Size of Tubigrip Used Size E -Size E ($) 1 Treatment Response Procedure Procedure Tolerated Well Tolerated Well Pain Scale: 0-10 Numeric Is Patient Pain Free? Yes Yes Teaching: Wound Center Dressing Your Wound -Person Taught Patient -Teaching Method Discussion, Demonstration -Response to teaching Verbalize understanding WC - Visit Discharge Discharge Condition Stable Stable Ambulatory Status Ambulatory, Ambulatory, Walker Walker Transportation Private Auto Private Auto Accompanied by SELF Medication Reconcilliation completed & No No provided to patient/care provider Clinical Summary of Care Provided Yes Yes Additional Wound Wound debrided: left medial LE cluster Laterality: Left Type of Debridement: Excisional debridement Anesthesia Used: 4% Lidocaine Solution and 5% Lidocaine Gel Depth: Down to and including healthy tissue and in the subcutaneous layer Percentage of wound debrided: 100 Instrument Used: 7mm curette Tissue Removed: yellow slough, devitalized tissue Severity: Fat Layer Exposed Amount of bleeding with debridement: Mild Bleeding Controlled with: Compression and gauze Patient tolerated procedure: Patient tolerated procedure well Additional Wound Wound debrided: left [place] Laterality: Left Operative Diagnosis: No debridement - ulcer healed Assessment/Plan Assessment/Plan (1) Ulcer of right lower extremity with fat layer exposed: CODE(S): L97.912 - Non-pressure chronic ulcer of unspecified part of rightlower leg with fat layer exposed (2) Ulcer of left lower extremity with fat layer exposed: CODE(S): L97.922 - Non-pressure chronic ulcer of unspecified part of left lower leg with fat layer exposed (3) Venous insufficiency: CODE(S): I87.2 - Venous insufficiency (chronic) (peripheral) (4) Edema: CODE(S): R60.9 - Edema, unspecified QUALIFIERS: Edema type: unspecified Qualified Code(s): R60.9 - Edema, unspecified (5) History of CVA (cerebrovascular accident): CODE(S): Z86.73 - Personal history of transient ischemic attack (TIA), andcerebral infarction without residual deficits (6) Venous ulcer of left lower extremity with varicose veins: CODE(S): I83.029 - Varicose veins of left lower extremity with ulcer of unspecified site (7) Venous ulcer of both lower extremities with varicose veins: CODE(S): I83.019 - Varicose veins of right lower extremity with ulcer of unspecified site; I83.029 - Varicose veins of left lower extremity with ulcer ofunspecified site (8) Venous ulcers of both lower extremities: CODE(S): I87.2 - Venous insufficiency (chronic) (peripheral) (9) Lymphedema: CODE(S): I89.0 - Lymphedema, not elsewhere classified PLAN: Plan Debridement performed today in clinic as annotated above. At home wound-care instructions: Epifix was applied to ulcers per java tech lead guidelines and covered with wound veil secured with steri-strips and will apply Fibracol as secondary dressing to ulcers, cover with ABD and wrap with gauze anduse compression with tubigrips and continue lasix 3 tabs BID. Epifix #6 applied today. Off-loading: The patient was instructed to avoid pressure and friction on the affected areas. Reposition every 2 hours at minimum. Avoid prolonged standing and/or dangling of legs. When seated, feet should be elevated at chest level. Frequent ambulation is encouraged. Encouraged lymphedema pump use. Diet: Patient encouraged to increase protein intake while taking caution to avoid high carbohydrate and/or sugar intake. Labs/cultures/imaging: Follow-up: Return in 1 week for wound care follow up and [facility] and Tuesday. Return sooner or report to the emergency room should symptoms worsen, or new symptoms arise. Note: [employer] speech recognition hair tinter software was used to create portions of this document. Sound-alike and misspelled words, as well as other hair tinter errors may be contained in the documentation. 04/08/23 1416 <Electronically signed by Patricia Garcia DO> Cosigner Signature (if applicable): CC: ~ Signed [facility] Work Phone: [phone] 111-303306-23-2023 Progress note Author Patricia Garcia [facility] April 01, 2023 3:48pm Note Date/Time April 01, 2023 3:48 pm [facility] [address] [place] [id number] Progress Note - Wound Care 04/01/23 1545 MR#: [id number] Acct: [id number] Name: ESTEBAN URBINA Rep #:[id number] : 1955 67 From: Patricia Garcia DO PCP: Dr. Patricia Garcia DO Status:REG RCR Location: History of Present Illness Date of Service: 04/01/23 Chief Complaint: venous ulcers of left lower extremity History of Wound: Mauricio is a 67 yo gentleman who is here today for evaluation of ulcers to to his bilateral lower legs. [facility]. The left LE ulcer started after he developed increased swelling and blisters of left leg in October and the right leg started sometime at the end of October. He was seen at PCP's office a culture was taken and it was resistant to several antibiotics. He was treated initially with Levaquin but had myalgias and then was treated with doxycycline which he finished 2 days ago. He denies improvementand is having swelling to his left calf and thigh. He has been having swelling to both lower extremities for many years and it has worsened over the last few months. He has not been compliant with compression. He has had increased pain especially in the left leg. He has clear yellow drainage and redness without odor or warmth. He is anti-coagulated on coumadin. He has been washing with Dial soap and witch ifrah. He had been using Collagen at times and using Calcium Alginate and covering with ABD pads during October. He was treated with 3M compression and Aquacel Ag. He was referred to the wound center for ongoing treatment. His ulcers have moderate to heavy drainage. He was recently hospitalized for cellulitis and edema for the last 10 days. He was in the hospital from 11/30/22 until 12/09/22 for treatment of cellulitis and edema. He underwent treatment with Vancomycin and IV lasix and compression. Discharged on 12/09/22 and is currently in the Skilled section of [facility]. He returned to his assisted living apartment on Tuesday12/21/22. Subjective Subjective He tolerated treatment with Epifix and Aquacel Extra and ABDs and tubigrips. Hisleft lower leg ulcers are slightly improved this week but edema is about the same. Denies fever, chills, increased pain or increased drainage. Objective Data Objective Data Vital Signs: Vital Signs Temp Pulse Resp BP 97 F L 61 18 104/64 04/01/23 10:17 04/01/23 10:17 04/01/23 10:17 04/01/23 10:17 Physical Exam Const alert, oriented x3 and no apparent distress General Appearance: cooperative and comfortable HEENT normocephalic and head/scalp atraumatic Lymph Lymphatic: lymphedema moderate Resp normal respiratory effort Effort and Inspection: able to speak in complete sentences Cardio regular rate and regular rhythm Extremity General Extremity: edema bilateral lower extremity Details: severe Skin Wounds: wounds noted Wound Narrative: as in clinical panel Psych mental status grossly normal, thought process normal, cooperative and affect normal Debridement Note Debridement Note Wound debrided: Left lateral LE cluster Laterality: Left Type of Debridement: Excisional debridement Anesthesia Used: 4% Lidocaine Solution Depth: Down to and including healthy tissue and in the subcutaneous layer Percentage of wound debrided: 100 Instrument Used: 5mm curette Tissue Removed: Yellow slough, devitalized tissue Severity: Fat Layer Exposed Amount of bleeding with debridement: Mild Bleeding Controlled with: Compression and gauze Patient tolerated procedure: Patient tolerated procedure well Post-Debridement Measurements and Additional Note: Post-Debridement Measurements/Treatment WC - Nurse 1 - General Ulcer Assessment Start: 03/11/23 09:44 Freq: Status: Active Protocol: ONDINA Activity Type Activity Date Activity User E-sign Co-sign Detail Recorded Client Recorded Date Recorded By Document 03/11/23 09:44 JOE [id number] 03/11/23 09:46 AK Document 03/18/23 09:41 DL [id number] 03/18/23 09:52 DL Document 03/25/23 11:57 AK [id number] 03/25/23 12:00 AK Document 04/01/23 10:17 RB [id number] 04/01/23 10:29 RB 03/11/23 03/18/23 03/25/23 09:44 09:41 11:57 WC - Today's Visit Information Type of service Follow-up Visit Follow-up Visit Follow-up Visit (Physician/APPLICATIONS SPECIALIST (Physician/APPLICATIONS SPECIALIST (Physician/APPLICATIONS SPECIALIST ) ) ) Arrival Mode Ambulatory Ambulatory, Ambulatory, Walker Walker Transfer Assistance None Patient Identification Verified (Name & No Yes Yes ) Patient Requires Transmission-Based No No No Precautions Vital Signs Temperature (97.8 F-99.1 F) 97.4 F L 97.2 F L 96.9 F L Temperature Source Temporal Temporal Temporal Pulse Rate (60-100) 77 64 65 Pulse Location Monitor Monitor Monitor Respiratory Rate (12-18) 20 H Respiratory rate source Observation Blood Pressure (90/60-120/80) 126/77 H 101/60 100/62 Blood Pressure Mean (mm Hg) 93 73 74 Source Monitor Monitor Monitor Position Blood Pressure Location History Since Last Visit- (Skip if this is Patient's initial visit) Have you changed medications since your No No No last visit? Any new allergies or adverse reactions No No No Had a fall/change in ADL's that may No No No increase risk of falls Signs or symptoms of abuse and/or No No No neglect since last visit Have you been in the hospital since your No No No last visit? Has dressing in place as prescribed Yes Yes No Has compression in place as prescribed N/A Yes Yes Has offloadiing in place as prescribed N/A N/A Yes Experienced any changes in pain level or No No No management Left Footwear Regular Shoe Regular Shoe Right Footwear Regular Shoe Regular Shoe Pain Scale: 0-10 Numeric Is Patient Pain Free? Yes Yes No 04/01/23 10:17 WC - Today's Visit Information Type of service Follow-up Visit (Physician/APPLICATIONS SPECIALIST ) Arrival Mode Ambulatory, Walker Transfer Assistance None Patient Identification Verified (Name & Yes ) Patient Requires Transmission-Based No Precautions Vital Signs Temperature (97.8 F-99.1 F) 97 F L Temperature Source Temporal Pulse Rate (60-100) 61 Pulse Location Monitor Respiratory Rate (12-18) 18 Respiratory rate source Observation Blood Pressure (90/60-120/80) 104/64 Blood Pressure Mean (mm Hg) 77 Source Monitor Position Semi-Fowlers Blood Pressure Location Left Arm History Since Last Visit- (Skip if this is Patient's initial visit) Have you changed medications since your No last visit? Any new allergies or adverse reactions No Had a fall/change in ADL's that may No increase risk of falls Signs or symptoms of abuse and/or No neglect since last visit Have you been in the hospital since your No last visit? Has dressing in place as prescribed Yes Has compression in place as prescribed Yes Has offloadiing in place as prescribed No Experienced any changes in pain level or No management Left Footwear Right Footwear Pain Scale: 0-10 Numeric Is Patient Pain Free? Yes WC - Nurse 1 - General Ulcer Measurement Start: 03/11/23 09:44 Freq: Status: Active Protocol: Activity Type Activity Date Activity User E-sign Co-sign Detail Recorded Client Recorded Date Recorded By Document 03/11/23 09:44 AK [id number] 03/11/23 09:46 AK Document 03/18/23 09:41 DL [id number] 03/18/23 09:52 DL Document 03/25/23 11:57 AK [id number] 03/25/23 12:00 AK Document 04/01/23 10:17 RB [id number] 04/01/23 10:29 RB 03/11/23 03/18/23 03/25/23 09:44 09:41 11:57 Wound Center Nurse 1 #21 LEFT [place] -Combined with other wound No -Current Size (cm) - Length 2.2 5 -Current Size (cm) - Width 0.8 3 -Current Size (cm) - Depth 0.1 0.1 -Total Square Cm 1.76 15 -Photo Taken No -Tunneling No -Undermining/Tunneling No -Circular Undermining No -Change in Wound Grade/Stage No -Exudate Amt Small Large -Exudate Type Serosanguineous Serosanguineous -Wound Margin Distinct, Distinct, Outline Outline Attached Attached -Granulation Amt Large (67-100%) Large (67-100%) -Granulation Quality Red Red -Slough/Fibrin Yes -Necrosis Amt Small (1-33%) Small (1-33%) -Necrotic Tissue Type Adherent Slough Adherent Slough -Structure Exposed N/A N/A -Texture (Marie-wound Skin Appearance) Scarring No Abnormality, Assessed -Moisture (Marie-wound Skin Appearance) Dry/Scaly No Abnormality, Assessed -Color (Marie-wound Skin Appearance) Hemosiderin No Abnormality, Staining Assessed -Temperature (Marie-wound Skin No Abnormality No Abnormality Appearance) (Pt Warm) (Pt Warm) -Tenderness on Palpation (Marie-wound No No Skin Appearance) -Ulcer Cleansing Not Cleansed Rinsed/ Irrigated with Saline -Foul Odor after Cleansing No No -Anesthetic Used 5% Lidocaine 5% Lidocaine Gel Gel #19 Left Lateral LE cluster -Combined with other wound No No -Current Size (cm) - Length 7 0.1 0.5 -Current Size (cm) - Width 10.5 0.1 0.5 -Current Size (cm) - Depth 0.1 0.1 0.1 -Total Square Cm 73.5 0.01 0.25 -Photo Taken Yes No -Tunneling No No -Undermining/Tunneling No No -Circular Undermining No No -Change in Wound Grade/Stage No No -Exudate Amt Medium None Present Medium -Exudate Type Serosanguineous Serosanguineous -Wound Margin Distinct, Thickened Distinct, Outline Outline Attached Attached -Granulation Amt Large (67-100%) None Present (0 Large (67-100%) %) -Granulation Quality Hyper- Red granulation, Lingle -Slough/Fibrin No Yes -Necrosis Amt None Present (0 Small (1-33%) Small (1-33%) %) -Necrotic Tissue Type Adherent Slough Adherent Slough -Structure Exposed N/A N/A N/A -Texture (Marie-wound Skin Appearance) Assessed, Scarring No Abnormality, Scarring Assessed -Moisture (Marie-wound Skin Appearance) No Abnormality Dry/Scaly No Abnormality, Assessed -Color (Marie-wound Skin Appearance) No Abnormality, Hemosiderin No Abnormality, Assessed Staining Assessed -Temperature (Marie-wound Skin No Abnormality No Abnormality No Abnormality Appearance) (Pt Warm) (Pt Warm) (Pt Warm) -Tenderness on Palpation (Marie-wound No No No Skin Appearance) -Ulcer Cleansing Soap and Water Soap and Water Rinsed/ Irrigated with Saline -Foul Odor after Cleansing No No No -Anesthetic Used 4% Lidocaine 5% Lidocaine 5% Lidocaine Solution Gel Gel #18 Left medial LE cluster -Combined with other wound No No -Current Size (cm) - Length 6.5 5.8 5.8 -Current Size (cm) - Width 4 10 10 -Current Size (cm) - Depth 0.1 0.2 0.2 -Total Square Cm 26.0 58.0 58.0 -Photo Taken Yes No -Tunneling No No -Undermining/Tunneling No No -Circular Undermining No No -Change in Wound Grade/Stage No No -Exudate Amt Medium Medium -Exudate Type Serosanguineous Serosanguineous Serosanguineous -Wound Margin Distinct, Distinct, Distinct, Outline Outline Outline Attached Attached Attached -Granulation Amt Large (67-100%) Medium (34-66%) Medium (34-66%) -Granulation Quality Lingle Red Red -Slough/Fibrin Yes Yes -Necrosis Amt Small (1-33%) Medium (34-66%) Medium (34-66%) -Necrotic Tissue Type Adherent Slough Adherent Slough Adherent Slough -Structure Exposed N/A N/A N/A -Texture (Marie-wound Skin Appearance) Assessed, Scarring No Abnormality, Scarring Assessed -Moisture (Marie-wound Skin Appearance) Assessed Dry/Scaly No Abnormality, Assessed -Color (Marie-wound Skin Appearance) Assessed, Hemosiderin No Abnormality, Hemosiderin Staining Assessed Staining -Temperature (Marie-wound Skin No Abnormality No Abnormality No Abnormality Appearance) (Pt Warm) (Pt Warm) (Pt Warm) -Tenderness on Palpation (Marie-wound Yes No No Skin Appearance) -Ulcer Cleansing Soap and Water Soap and Water -Foul Odor after Cleansing No No No -Anesthetic Used 4% Lidocaine 5% Lidocaine 5% Lidocaine Solution Gel Gel Lower Limb Edema Present Right Calf (cm) 42.6 Right Ankle (cm) 30 Left Calf (cm) 42.5 Left Ankle (cm) 27 04/01/23 10:17 Wound Center Nurse 1 #21 LEFT [place] -Combined with other wound No -Current Size (cm) - Length 1.4 -Current Size (cm) - Width 0.7 -Current Size (cm) - Depth 0.1 -Total Square Cm 0.98 -Photo Taken -Tunneling No -Undermining/Tunneling No -Circular Undermining No -Change in Wound Grade/Stage -Exudate Amt Medium -Exudate Type Serosanguineous -Wound Margin Distinct, Outline Attached -Granulation Amt Medium (34-66%) -Granulation Quality Lingle -Slough/Fibrin Yes -Necrosis Amt Medium (34-66%) -Necrotic Tissue Type Adherent Slough -Structure Exposed N/A -Texture (Marie-wound Skin Appearance) Assessed -Moisture (Marie-wound Skin Appearance) Assessed -Color (Marie-wound Skin Appearance) Assessed -Temperature (Marie-wound Skin No Abnormality Appearance) (Pt Warm) -Tenderness on Palpation (Marie-wound No Skin Appearance) -Ulcer Cleansing Wound Cleanser -Foul Odor after Cleansing No -Anesthetic Used 5% Lidocaine Gel #19 Left Lateral LE cluster -Combined with other wound No -Current Size (cm) - Length 0.1 -Current Size (cm) - Width 0.1 -Current Size (cm) - Depth 0.1 -Total Square Cm 0.01 -Photo Taken -Tunneling No -Undermining/Tunneling No -Circular Undermining No -Change in Wound Grade/Stage -Exudate Amt Medium -Exudate Type Serosanguineous -Wound Margin Distinct, Outline Attached -Granulation Amt Medium (34-66%) -Granulation Quality Lingle -Slough/Fibrin Yes -Necrosis Amt Medium (34-66%) -Necrotic Tissue Type Adherent Slough -Structure Exposed N/A -Texture (Marie-wound Skin Appearance) Assessed -Moisture (Marie-wound Skin Appearance) Assessed -Color (Marie-wound Skin Appearance) Assessed -Temperature (Marie-wound Skin No Abnormality Appearance) (Pt Warm) -Tenderness on Palpation (Marie-wound No Skin Appearance) -Ulcer Cleansing Wound Cleanser -Foul Odor after Cleansing No -Anesthetic Used 5% Lidocaine Gel #18 Left medial LE cluster -Combined with other wound No -Current Size (cm) - Length 5.7 -Current Size (cm) - Width 11 -Current Size (cm) - Depth 0.3 -Total Square Cm 62.7 -Photo Taken -Tunneling No -Undermining/Tunneling No -Circular Undermining No -Change in Wound Grade/Stage -Exudate Amt Medium -Exudate Type Serosanguineous -Wound Margin Thickened & Rolled Under -Granulation Amt Medium (34-66%) -Granulation Quality Lingle -Slough/Fibrin Yes -Necrosis Amt Medium (34-66%) -Necrotic Tissue Type Adherent Slough -Structure Exposed N/A -Texture (Marie-wound Skin Appearance) Assessed -Moisture (Marie-wound Skin Appearance) Assessed -Color (Marie-wound Skin Appearance) Assessed -Temperature (Marie-wound Skin No Abnormality Appearance) (Pt Warm) -Tenderness on Palpation (Marie-wound No Skin Appearance) -Ulcer Cleansing Wound Cleanser -Foul Odor after Cleansing No -Anesthetic Used 5% Lidocaine Gel Lower Limb Edema Present Yes Right Calf (cm) Right Ankle (cm) Left Calf (cm) 43 Left Ankle (cm) 30 WC - Nurse 2 - General Ulcer CM Notes Start: 03/11/23 09:44 Freq: Status: Active Protocol: Activity Type Activity Date Activity User E-sign Co-sign Detail Recorded Client Recorded Date Recorded By Document 03/11/23 10:24 MW [id number] 03/11/23 10:35 MW Edit Result 03/11/23 10:24 MW (1) [id number] 03/11/23 10:36 MW Document 03/18/23 10:28 MW [id number] 03/18/23 10:49 MW Document 03/25/23 11:16 MW [id number] 03/25/23 11:31 MW Document 04/01/23 10:35 MW [id number] 04/01/23 10:58 MW (1) #21 LEFT [place] - Debridement - Subq, 1st 20sq cm No => Yes 03/11/23 03/18/23 03/25/23 10:24 10:28 11:16 Wound Center Nurse 2 #21 LEFT [place] -Time 10:25 10:32 11:17 -Correct Patient Yes Yes Yes -Correct Side, Site, Position Yes Yes Yes -Correct Procedure Yes Yes Yes -Procedure Performed Yes Yes Yes -Type of Procedure Debridement Debridement Debridement -Clinical Debridement Subcutaneous Subcutaneous Subcutaneous -Tissue Removed Subcutaneous Subcutaneous Subcutaneous -Post Debridement (cm) - Length 2.5 2.0 3.0 -Post Debridement (cm) - Width 1.9 1.0 1.0 -Post Debridement (cm) - Depth 0.1 0.1 0.1 -Total Square (Post) (cm) 4.75 2.00 3.00 -Area of Debridement (cm) - Length 2.5 2.0 3.0 -Area of Debridement (cm) - Width 1.9 1.0 1.0 -Total Square (Area) (cm) 4.75 2.00 3.00 -Tunneling No No No -Undermining/Tunneling No No No -Circular Undermining No No No -Wound/Ulcer Outcome Not Healed Not Healed Not Healed -Ulcer Cleansing Rinsed/ Rinsed/ Rinsed/ Irrigated with Irrigated with Irrigated with Saline Saline Saline -Foul Odor after Cleansing No No No -Bioengineered Tissue No No No -Bleeding Controlled with Pressure Pressure Pressure -Treatment Response Procedure Procedure Procedure Tolerated Well Tolerated Well Tolerated Well -Offloading No No No -Debridement - Subq, 1st 20sq cm Yes Yes Yes #19 Left Lateral LE cluster -Time 10:24 10:33 11:19 -Correct Patient Yes Yes Yes -Correct Side, Site, Position Yes Yes Yes -Correct Procedure Yes Yes Yes -Procedure Performed Yes Yes Yes -Type of Procedure Debridement Debridement Debridement -Clinical Debridement Subcutaneous Subcutaneous Subcutaneous -Tissue Removed Subcutaneous Subcutaneous Subcutaneous -Post Debridement (cm) - Length 0.8 0.3 0.9 -Post Debridement (cm) - Width 0.7 0.3 0.3 -Post Debridement (cm) - Depth 0.1 0.1 0.1 -Total Square (Post) (cm) 0.56 0.09 0.27 -Area of Debridement (cm) - Length 0.8 0.3 0.9 -Area of Debridement (cm) - Width 0.7 0.3 0.3 -Total Square (Area) (cm) 0.56 0.09 0.27 -Tunneling No No No -Undermining/Tunneling No No No -Circular Undermining No No No -Wound/Ulcer Outcome Not Healed Not Healed Not Healed -Ulcer Cleansing Rinsed/ Wound Cleanser Rinsed/ Irrigated with Irrigated with Saline Saline -Foul Odor after Cleansing No No No -Bioengineered Tissue No No No -Bleeding Controlled with Pressure Pressure Pressure -Treatment Response Procedure Procedure Procedure Tolerated Well Tolerated Well Tolerated Well -Offloading No No No -Debridement - Subq, 1st 20sq cm No No No #18 Left medial LE cluster -Time 10:24 10:34 11:20 -Correct Patient Yes Yes Yes -Correct Side, Site, Position Yes Yes Yes -Correct Procedure Yes Yes Yes -Procedure Performed Yes Yes Yes -Type of Procedure Debridement Debridement Debridement -Clinical Debridement Subcutaneous Subcutaneous Subcutaneous -Tissue Removed Subcutaneous Subcutaneous Subcutaneous -Post Debridement (cm) - Length 6.5 6.1 5.8 -Post Debridement (cm) - Width 9.1 9.5 9.0 -Post Debridement (cm) - Depth 0.2 0.2 0.2 -Total Square (Post) (cm) 59.15 57.95 52.20 -Area of Debridement (cm) - Length 6.5 6.4 5.8 -Area of Debridement (cm) - Width 9.1 9.5 9.0 -Total Square (Area) (cm) 59.15 60.80 52.20 -Tunneling No No No -Undermining/Tunneling No No No -Circular Undermining No No No -Wound/Ulcer Outcome Not Healed Not Healed Not Healed -Ulcer Cleansing Rinsed/ Rinsed/ Rinsed/ Irrigated with Irrigated with Irrigated with Saline Saline Saline -Foul Odor after Cleansing No No No -Bioengineered Tissue Yes Yes Yes -Type of Bioengineered Tissue Epifix Mesh Epifix Mesh Epifix Mesh -Expiration Date 01/09/28 01/09/28 01/09/28 -Product Lot Number [id number] -Percent Used 100 100 100 -Lot number of Saline Used [id number] -Bleeding Controlled with Pressure Pressure Pressure -Treatment Response Procedure Procedure Procedure Tolerated Well Tolerated Well Tolerated Well -Offloading No No No -Debridement - Subq, 1st 20sq cm No No No -Apply Skin Sub - 1st 25 sq cm - Legs 1 1 1 -Epifix Mesh (per sq cm) 11 11 11 Pain Scale: 0-10 Numeric Is Patient Pain Free? Yes Yes Yes 04/01/23 10:35 Wound Center Nurse 2 #21 LEFT [place] -Time 10:39 -Correct Patient Yes -Correct Side, Site, Position Yes -Correct Procedure Yes -Procedure Performed Yes -Type of Procedure Debridement -Clinical Debridement Subcutaneous -Tissue Removed Subcutaneous -Post Debridement (cm) - Length 1.4 -Post Debridement (cm) - Width 0.6 -Post Debridement (cm) - Depth 0.1 -Total Square (Post) (cm) 0.84 -Area of Debridement (cm) - Length 1.4 -Area of Debridement (cm) - Width 0.6 -Total Square (Area) (cm) 0.84 -Tunneling No -Undermining/Tunneling No -Circular Undermining No -Wound/Ulcer Outcome Not Healed -Ulcer Cleansing Rinsed/ Irrigated with Saline -Foul Odor after Cleansing No -Bioengineered Tissue No -Bleeding Controlled with Pressure -Treatment Response Procedure Tolerated Well -Offloading No -Debridement - Subq, 1st 20sq cm Yes #19 Left Lateral LE cluster -Time 10:40 -Correct Patient Yes -Correct Side, Site, Position Yes -Correct Procedure Yes -Procedure Performed Yes -Type of Procedure Debridement -Clinical Debridement Subcutaneous -Tissue Removed Subcutaneous -Post Debridement (cm) - Length 0.8 -Post Debridement (cm) - Width 0.2 -Post Debridement (cm) - Depth 0.1 -Total Square (Post) (cm) 0.16 -Area of Debridement (cm) - Length 0.8 -Area of Debridement (cm) - Width 0.2 -Total Square (Area) (cm) 0.16 -Tunneling No -Undermining/Tunneling No -Circular Undermining No -Wound/Ulcer Outcome Not Healed -Ulcer Cleansing Rinsed/ Irrigated with Saline -Foul Odor after Cleansing No -Bioengineered Tissue No -Bleeding Controlled with Pressure -Treatment Response Procedure Tolerated Well -Offloading No -Debridement - Subq, 1st 20sq cm No #18 Left medial LE cluster -Time 10:40 -Correct Patient Yes -Correct Side, Site, Position Yes -Correct Procedure Yes -Procedure Performed Yes -Type of Procedure Debridement -Clinical Debridement Subcutaneous -Tissue Removed Subcutaneous -Post Debridement (cm) - Length 6.0 -Post Debridement (cm) - Width 10.0 -Post Debridement (cm) - Depth 0.2 -Total Square (Post) (cm) 60.00 -Area of Debridement (cm) - Length 6.0 -Area of Debridement (cm) - Width 10.0 -Total Square (Area) (cm) 60.00 -Tunneling No -Undermining/Tunneling No -Circular Undermining No -Wound/Ulcer Outcome Not Healed -Ulcer Cleansing Rinsed/ Irrigated with Saline -Foul Odor after Cleansing No -Bioengineered Tissue Yes -Type of Bioengineered Tissue Epifix Mesh -Expiration Date 01/09/28 -Product Lot Number [id number] -Percent Used 100 -Lot number of Saline Used [id number] -Bleeding Controlled with Pressure -Treatment Response Procedure Tolerated Well -Offloading No -Debridement - Subq, 1st 20sq cm No -Apply Skin Sub - 1st 25 sq cm - Legs 1 -Epifix Mesh (per sq cm) 11 Pain Scale: 0-10 Numeric Is Patient Pain Free? Yes WC - Nurse 3 - General Ulcer D/C NN Start: 03/11/23 09:44 Freq: Status: Active Protocol: Activity Type Activity Date Activity User E-sign Co-sign Detail Recorded Client Recorded Date Recorded By Document 03/11/23 10:58 RB [id number] 03/11/23 10:59 RB Document 03/18/23 11:07 RB [id number] 03/18/23 11:09 RB Document 03/25/23 13:11 RB [id number] 03/25/23 13:13 RB Document 04/01/23 10:59 MW [id number] 04/01/23 11:00 MW 03/11/23 03/18/23 03/25/23 10:58 11:07 13:11 Wound Care Center Nurse 3 #21 LEFT [place] -Ulcer Cleansing Rinsed/ Irrigated with Saline -Foul Odor after Cleansing -Negative Pressure Wound Therapy -Primary Dressing Applied Aquacel Extra Aquacel Extra Aquacel Extra -Other Dressing abd ABD -Primary Dressing Covered/Secured with Dry Gauze,Dry Dry Gauze,Dry Dry Gauze & Gauze & Roll Gauze & Roll Roll Gauze Gauze,Secured Gauze,Secured with Tape with Tape -Other Covering -Aquacel Extra 2 1 1 -Fibracol Plus 4x4 #19 Left Lateral LE cluster -Ulcer Cleansing -Foul Odor after Cleansing -Negative Pressure Wound Therapy -Other Dressing aquacel extra , aquacel extra/ aquacel extra/ abd abd ABD -Primary Dressing Covered/Secured with Dry Gauze & Dry Gauze & Roll Gauze, Roll Gauze, Secured with Secured with Tape Tape -Other Covering #18 Left medial LE cluster -Ulcer Cleansing Rinsed/ Irrigated with Saline -Foul Odor after Cleansing -Negative Pressure Wound Therapy -Other Dressing aquacel extra aquacel extra/ aquacel extra/ abd abd ABD -Primary Dressing Covered/Secured with Dry Gauze & Dry Gauze & Roll Gauze, Roll Gauze, Secured with Secured with Tape Tape -Other Covering Right -Lotion applied to leg before compression wrap -Compression Wrap -Tubular Bandage Single Layer -Size of Tubigrip Used Size E -Size E ($) 1 -Other pt own tubigrip single layer size E Left -Lotion applied to leg before compression wrap -Compression Wrap -Tubular Bandage Single Layer Single Layer -Size of Tubigrip Used Size E Size E -Size E ($) 1 1 Treatment Response Procedure Procedure Tolerated Well Tolerated Well Pain Scale: 0-10 Numeric Is Patient Pain Free? Yes Yes Yes Teaching: Wound Center Dressing Your Wound -Person Taught -Teaching Method -Response to teaching WC - Visit Discharge Discharge Condition Stable Stable Stable Ambulatory Status Ambulatory, Ambulatory, Ambulatory, Walker Walker Walker Transportation Private Auto [facility] transport Private Auto Accompanied by Medication Reconcilliation completed & No No No provided to patient/care provider Clinical Summary of Care Provided Yes Yes Yes 04/01/23 10:59 Wound Care Center Nurse 3 #21 LEFT [place] -Ulcer Cleansing Rinsed/ Irrigated with Saline -Foul Odor after Cleansing No -Negative Pressure Wound Therapy N/A -Primary Dressing Applied Fibracol Plus 4x4 -Other Dressing -Primary Dressing Covered/Secured with Dry Gauze & Roll Gauze, Secured with Tape -Other Covering ABD -Aquacel Extra -Fibracol Plus 4x4 1 #19 Left Lateral LE cluster -Ulcer Cleansing Rinsed/ Irrigated with Saline -Foul Odor after Cleansing No -Negative Pressure Wound Therapy N/A -Other Dressing FIBRACOL PLUS -Primary Dressing Covered/Secured with Dry Gauze & Roll Gauze, Secured with Tape -Other Covering ABD #18 Left medial LE cluster -Ulcer Cleansing Rinsed/ Irrigated with Saline -Foul Odor after Cleansing No -Negative Pressure Wound Therapy N/A -Other Dressing FIBRACOL PLUS -Primary Dressing Covered/Secured with Dry Gauze & Roll Gauze, Secured with Tape -Other Covering ABD Right -Lotion applied to leg before No compression wrap -Compression Wrap Kishore Wrap -Tubular Bandage -Size of Tubigrip Used -Size E ($) -Other Left -Lotion applied to leg before No compression wrap -Compression Wrap Kishore Wrap -Tubular Bandage -Size of Tubigrip Used -Size E ($) Treatment Response Procedure Tolerated Well Pain Scale: 0-10 Numeric Is Patient Pain Free? Yes Teaching: Wound Center Dressing Your Wound -Person Taught Patient -Teaching Method Discussion, Demonstration -Response to teaching Verbalize understanding WC - Visit Discharge Discharge Condition Stable Ambulatory Status Ambulatory, Walker Transportation Private Auto Accompanied by SELF Medication Reconcilliation completed & No provided to patient/care provider Clinical Summary of Care Provided Yes Additional Wound Wound debrided: left medial LE cluster Laterality: Left Type of Debridement: Excisional debridement Anesthesia Used: 4% Lidocaine Solution and 5% Lidocaine Gel Depth: Down to and including healthy tissue and in the subcutaneous layer Percentage of wound debrided: 100 Instrument Used: 5mm curette Tissue Removed: yellow slough, devitalized tissue Severity: Fat Layer Exposed Amount of bleeding with debridement: Mild Bleeding Controlled with: Compression and gauze Patient tolerated procedure: Patient tolerated procedure well Additional Wound Wound debrided: left york Laterality: Left Type of Debridement: Excisional debridement Anesthesia Used: 4% Lidocaine Solution and 5% Lidocaine Gel Depth: Down to and including healthy tissue and in the subcutaneous layer Percentage of wound debrided: 100 Instrument Used: 5mm curette Tissue Removed: Yellow slough, devitalized tissue Severity: Fat Layer Exposed Amount of bleeding with debridement: Mild Bleeding Controlled with: Compression and gauze Patient tolerated procedure: Patient tolerated procedure well Assessment/Plan Assessment/Plan (1) Ulcer of right lower extremity with fat layer exposed: CODE(S): L97.912 - Non-pressure chronic ulcer of unspecified part of rightlower leg with fat layer exposed (2) Ulcer of left lower extremity with fat layer exposed: CODE(S): L97.922 - Non-pressure chronic ulcer of unspecified part of left lower leg with fat layer exposed (3) Venous insufficiency: CODE(S): I87.2 - Venous insufficiency (chronic) (peripheral) (4) Edema: CODE(S): R60.9 - Edema, unspecified QUALIFIERS: Edema type: unspecified Qualified Code(s): R60.9 - Edema, unspecified (5) History of CVA (cerebrovascular accident): CODE(S): Z86.73 - Personal history of transient ischemic attack (TIA), andcerebral infarction without residual deficits (6) Venous ulcer of left lower extremity with varicose veins: CODE(S): I83.029 - Varicose veins of left lower extremity with ulcer of unspecified site (7) Venous ulcer of both lower extremities with varicose veins: CODE(S): I83.019 - Varicose veins of right lower extremity with ulcer of unspecified site; I83.029 - Varicose veins of left lower extremity with ulcer ofunspecified site (8) Venous ulcers of both lower extremities: CODE(S): I87.2 - Venous insufficiency (chronic) (peripheral) (9) Lymphedema: CODE(S): I89.0 - Lymphedema, not elsewhere classified PLAN: Plan Debridement performed today in clinic as annotated above. At home wound-care instructions: Epifix was applied to ulcers per java tech lead guidelines and covered with wound veil secured with steri-strips and will apply Fibracol as secondary dressing to ulcers, cover with ABD and wrap with gauze anduse compression with tubigrips and continue lasix 3 tabs BID. Epifix #5 applied today. Off-loading: The patient was instructed to avoid pressure and friction on the affected areas. Reposition every 2 hours at minimum. Avoid prolonged standing and/or dangling of legs. When seated, feet should be elevated at chest level. Frequent ambulation is encouraged. Encouraged lymphedema pump use. Diet: Patient encouraged to increase protein intake while taking caution to avoid high carbohydrate and/or sugar intake. Labs/cultures/imaging: Follow-up: Return in 1 week for wound care follow up and have secondary dressingchanged by home health Tuesday and Tuesday. Return sooner or report to the emergency room should symptoms worsen, or new symptoms arise. Note: [employer] speech recognition hair tinter software was used to create portions of this document. Sound-alike and misspelled words, as well as other hair tinter errors may be contained in the documentation. 04/01/23 4141 <Electronically signed by Patricia Garcia DO> Cosigner Signature (if applicable): CC: ~ Signed [facility] Work Phone: [phone] Progress note Author Patricia Garcia [facility] March 25, 2023 2:23pm Note Date/Time March 25, 2023 2:23 pm [facility] [address] [place] [address] Progress Note - Wound Care 03/25/23 1421 MR#: [id number] Acct: [id number] Name: ESTEBAN URBINA Rep #:[id number] : 1955 67 From: Patricia Garcia DO PCP: Dr. Patricia Garcia, DO Status:REG RCR Location: History of Present Illness Date of Service: 03/25/23 Chief Complaint: venous ulcers of left lower extremity History of Wound: Mauricio is a 67 yo gentleman who is here today for evaluation of ulcers to to his bilateral lower legs. [facility]. The left LE ulcer started after he developed increased swelling and blisters of left leg in October and the right leg started sometime at the end of October. He was seen at PCP's office a culture was taken and it was resistant to several antibiotics. He was treated initially with Levaquin but had myalgias and then was treated with doxycycline which he finished 2 days ago. He denies improvementand is having swelling to his left calf and thigh. He has been having swelling to both lower extremities for many years and it has worsened over the last few months. He has not been compliant with compression. He has had increased pain especially in the left leg. He has clear yellow drainage and redness without odor or warmth. He is anti-coagulated on coumadin. He has been washing with Dial soap and witch ifrah. He had been using Collagen at times and using Calcium Alginate and covering with ABD pads during October. He was treated with 3M compression and Aquacel Ag. He was referred to the wound center for ongoing treatment. His ulcers have moderate to heavy drainage. He was recently hospitalized for cellulitis and edema for the last 10 days. He was in the hospital from 11/30/22 until 12/09/22 for treatment of cellulitis and edema. He underwent treatment with Vancomycin and IV lasix and compression. Discharged on 12/09/22 and is [facility] in [facility] He returned to his assisted living apartment on Tuesday12/21/22. Subjective Subjective He tolerated treatment with Epifix and Aquacel Extra and ABDs and tubigrips. Hisleft lower leg ulcers are slightly improved this week but edema is about the same. Denies fever, chills, increased pain or increased drainage. Objective Data Objective Data Vital Signs: Vital Signs Temp Pulse Resp BP 96.9 F L 65 20 H 100/62 03/25/23 11:57 03/25/23 11:57 03/18/23 09:41 03/25/23 11:57 Physical Exam Const alert, oriented x3 and no apparent distress General Appearance: cooperative and comfortable HEENT normocephalic and head/scalp atraumatic Lymph Lymphatic: lymphedema moderate Resp normal respiratory effort Effort and Inspection: able to speak in complete sentences Cardio regular rate and regular rhythm Extremity General Extremity: edema bilateral lower extremity Details: severe Skin Wounds: wounds noted Wound Narrative: as in clinical panel Psych mental status grossly normal, thought process normal, cooperative and affect normal Debridement Note Debridement Note Wound debrided: Left lateral LE cluster Laterality: Left Type of Debridement: Excisional debridement Anesthesia Used: 4% Lidocaine Solution Depth: Down to and including healthy tissue and in the subcutaneous layer Percentage of wound debrided: 100 Instrument Used: 5mm curette Tissue Removed: Yellow slough, devitalized tissue Severity: Fat Layer Exposed Amount of bleeding with debridement: Mild Bleeding Controlled with: Compression and gauze Patient tolerated procedure: Patient tolerated procedure well Post-Debridement Measurements and Additional Note: Post-Debridement Measurements/Treatment - Nurse 1 - General Ulcer Assessment Start: 03/11/23 09:44 Freq: Status: Active Protocol: ONDINA Activity Type Activity Date Activity User E-sign Co-sign Detail Recorded Client Recorded Date Recorded By Document 03/11/23 09:44 AK [id number] 03/11/23 09:46 AK Document 03/18/23 09:41 DL [id number] 03/18/23 09:52 DL Document 03/25/23 11:57 AK [id number] 03/25/23 12:00 AK 03/11/23 03/18/23 03/25/23 09:44 09:41 11:57 - Today's Visit Information Type of service Follow-up Visit Follow-up Visit Follow-up Visit (Physician/APPLICATIONS SPECIALIST (Physician/APPLICATIONS SPECIALIST (Physician/APPLICATIONS SPECIALIST ) ) ) Arrival Mode Ambulatory Ambulatory, Ambulatory, Walker Walker Transfer Assistance None Patient Identification Verified (Name & No Yes Yes ) Patient Requires Transmission-Based No No No Precautions Vital Signs Temperature (97.8 F-99.1 F) 97.4 F L 97.2 F L 96.9 F L Temperature Source Temporal Temporal Temporal Pulse Rate (60-100) 77 64 65 Pulse Location Monitor Monitor Monitor Respiratory Rate (12-18) 20 H Respiratory rate source Observation Blood Pressure (90/60-120/80) 126/77 H 101/60 100/62 Blood Pressure Mean (mm Hg) 93 73 74 Source Monitor Monitor Monitor History Since Last Visit- (Skip if this is Patient's initial visit) Have you changed medications since your No No No last visit? Any new allergies or adverse reactions No No No Had a fall/change in ADL's that may No No No increase risk of falls Signs or symptoms of abuse and/or No No No neglect since last visit Have you been in the hospital since your No No No last visit? Has dressing in place as prescribed Yes Yes No Has compression in place as prescribed N/A Yes Yes Has offloadiing in place as prescribed N/A N/A Yes Experienced any changes in pain level or No No No management Left Footwear Regular Shoe Regular Shoe Right Footwear Regular Shoe Regular Shoe Pain Scale: 0-10 Numeric Is Patient Pain Free? Yes Yes No WC - Nurse 1 - General Ulcer Measurement Start: 03/11/23 09:44 Freq: Status: Active Protocol: Activity Type Activity Date Activity User E-sign Co-sign Detail Recorded Client Recorded Date Recorded By Document 03/11/23 09:44 NC [id number] 03/11/23 09:46 AK Document 03/18/23 09:41 DL [id number] 03/18/23 09:52 DL Document 03/25/23 11:57 AK [id number] 03/25/23 12:00 AK 03/11/23 03/18/23 03/25/23 09:44 09:41 11:57 Wound Center Nurse 1 #21 LEFT [place] -Combined with other wound No -Current Size (cm) - Length 2.2 5 -Current Size (cm) - Width 0.8 3 -Current Size (cm) - Depth 0.1 0.1 -Total Square Cm 1.76 15 -Photo Taken No -Tunneling No -Undermining/Tunneling No -Circular Undermining No -Change in Wound Grade/Stage No -Exudate Amt Small Large -Exudate Type Serosanguineous Serosanguineous -Wound Margin Distinct, Distinct, Outline Outline Attached Attached -Granulation Amt Large (67-100%) Large (67-100%) -Granulation Quality Red Red -Slough/Fibrin Yes -Necrosis Amt Small (1-33%) Small (1-33%) -Necrotic Tissue Type Adherent Slough Adherent Slough -Structure Exposed N/A N/A -Texture (Marie-wound Skin Appearance) Scarring No Abnormality, Assessed -Moisture (Marie-wound Skin Appearance) Dry/Scaly No Abnormality, Assessed -Color (Marie-wound Skin Appearance) Hemosiderin No Abnormality, Staining Assessed -Temperature (Marie-wound Skin No Abnormality No Abnormality Appearance) (Pt Warm) (Pt Warm) -Tenderness on Palpation (Marie-wound No No Skin Appearance) -Ulcer Cleansing Not Cleansed Rinsed/ Irrigated with Saline -Foul Odor after Cleansing No No -Anesthetic Used 5% Lidocaine 5% Lidocaine Gel Gel #19 Left Lateral LE cluster -Combined with other wound No No -Current Size (cm) - Length 7 0.1 0.5 -Current Size (cm) - Width 10.5 0.1 0.5 -Current Size (cm) - Depth 0.1 0.1 0.1 -Total Square Cm 73.5 0.01 0.25 -Photo Taken Yes No -Tunneling No No -Undermining/Tunneling No No -Circular Undermining No No -Change in Wound Grade/Stage No No -Exudate Amt Medium None Present Medium -Exudate Type Serosanguineous Serosanguineous -Wound Margin Distinct, Thickened Distinct, Outline Outline Attached Attached -Granulation Amt Large (67-100%) None Present (0 Large (67-100%) %) -Granulation Quality Hyper- Red granulation, Lingle -Slough/Fibrin No Yes -Necrosis Amt None Present (0 Small (1-33%) Small (1-33%) %) -Necrotic Tissue Type Adherent Slough Adherent Slough -Structure Exposed N/A N/A N/A -Texture (Marie-wound Skin Appearance) Assessed, Scarring No Abnormality, Scarring Assessed -Moisture (Marie-wound Skin Appearance) No Abnormality Dry/Scaly No Abnormality, Assessed -Color (Marie-wound Skin Appearance) No Abnormality, Hemosiderin No Abnormality, Assessed Staining Assessed -Temperature (Marie-wound Skin No Abnormality No Abnormality No Abnormality Appearance) (Pt Warm) (Pt Warm) (Pt Warm) -Tenderness on Palpation (Marie-wound No No No Skin Appearance) -Ulcer Cleansing Soap and Water Soap and Water Rinsed/ Irrigated with Saline -Foul Odor after Cleansing No No No -Anesthetic Used 4% Lidocaine 5% Lidocaine 5% Lidocaine Solution Gel Gel #18 Left medial LE cluster -Combined with other wound No No -Current Size (cm) - Length 6.5 5.8 5.8 -Current Size (cm) - Width 4 10 10 -Current Size (cm) - Depth 0.1 0.2 0.2 -Total Square Cm 26.0 58.0 58.0 -Photo Taken Yes No -Tunneling No No -Undermining/Tunneling No No -Circular Undermining No No -Change in Wound Grade/Stage No No -Exudate Amt Medium Medium -Exudate Type Serosanguineous Serosanguineous Serosanguineous -Wound Margin Distinct, Distinct, Distinct, Outline Outline Outline Attached Attached Attached -Granulation Amt Large (67-100%) Medium (34-66%) Medium (34-66%) -Granulation Quality Lingle Red Red -Slough/Fibrin Yes Yes -Necrosis Amt Small (1-33%) Medium (34-66%) Medium (34-66%) -Necrotic Tissue Type Adherent Slough Adherent Slough Adherent Slough -Structure Exposed N/A N/A N/A -Texture (Marie-wound Skin Appearance) Assessed, Scarring No Abnormality, Scarring Assessed -Moisture (Marie-wound Skin Appearance) Assessed Dry/Scaly No Abnormality, Assessed -Color (Marie-wound Skin Appearance) Assessed, Hemosiderin No Abnormality, Hemosiderin Staining Assessed Staining -Temperature (Marie-wound Skin No Abnormality No Abnormality No Abnormality Appearance) (Pt Warm) (Pt Warm) (Pt Warm) -Tenderness on Palpation (Marie-wound Yes No No Skin Appearance) -Ulcer Cleansing Soap and Water Soap and Water -Foul Odor after Cleansing No No No -Anesthetic Used 4% Lidocaine 5% Lidocaine 5% Lidocaine Solution Gel Gel Right Calf (cm) 42.6 Right Ankle (cm) 30 Left Calf (cm) 42.5 Left Ankle (cm) 27 WC - Nurse 2 - General Ulcer CM Notes Start: 03/11/23 09:44 Freq: Status: Active Protocol: Activity Type Activity Date Activity User E-sign Co-sign Detail Recorded Client Recorded Date Recorded By Document 03/11/23 10:24 MW [id number] 03/11/23 10:35 MW Edit Result 03/11/23 10:24 MW (1) [id number] 03/11/23 10:36 MW Document 03/18/23 10:28 MW [id number] 03/18/23 10:49 MW Document 03/25/23 11:16 MW [id number] 03/25/23 11:31 MW (1) #21 LEFT [place] - Debridement - Subq, 1st 20sq cm No => Yes 03/11/23 03/18/23 03/25/23 10:24 10:28 11:16 Wound Center Nurse 2 #21 LEFT [place] -Time 10:25 10:32 11:17 -Correct Patient Yes Yes Yes -Correct Side, Site, Position Yes Yes Yes -Correct Procedure Yes Yes Yes -Procedure Performed Yes Yes Yes -Type of Procedure Debridement Debridement Debridement -Clinical Debridement Subcutaneous Subcutaneous Subcutaneous -Tissue Removed Subcutaneous Subcutaneous Subcutaneous -Post Debridement (cm) - Length 2.5 2.0 3.0 -Post Debridement (cm) - Width 1.9 1.0 1.0 -Post Debridement (cm) - Depth 0.1 0.1 0.1 -Total Square (Post) (cm) 4.75 2.00 3.00 -Area of Debridement (cm) - Length 2.5 2.0 3.0 -Area of Debridement (cm) - Width 1.9 1.0 1.0 -Total Square (Area) (cm) 4.75 2.00 3.00 -Tunneling No No No -Undermining/Tunneling No No No -Circular Undermining No No No -Wound/Ulcer Outcome Not Healed Not Healed Not Healed -Ulcer Cleansing Rinsed/ Rinsed/ Rinsed/ Irrigated with Irrigated with Irrigated with Saline Saline Saline -Foul Odor after Cleansing No No No -Bioengineered Tissue No No No -Bleeding Controlled with Pressure Pressure Pressure -Treatment Response Procedure Procedure Procedure Tolerated Well Tolerated Well Tolerated Well -Offloading No No No -Debridement - Subq, 1st 20sq cm Yes Yes Yes #19 Left Lateral LE cluster -Time 10:24 10:33 11:19 -Correct Patient Yes Yes Yes -Correct Side, Site, Position Yes Yes Yes -Correct Procedure Yes Yes Yes -Procedure Performed Yes Yes Yes -Type of Procedure Debridement Debridement Debridement -Clinical Debridement Subcutaneous Subcutaneous Subcutaneous -Tissue Removed Subcutaneous Subcutaneous Subcutaneous -Post Debridement (cm) - Length 0.8 0.3 0.9 -Post Debridement (cm) - Width 0.7 0.3 0.3 -Post Debridement (cm) - Depth 0.1 0.1 0.1 -Total Square (Post) (cm) 0.56 0.09 0.27 -Area of Debridement (cm) - Length 0.8 0.3 0.9 -Area of Debridement (cm) - Width 0.7 0.3 0.3 -Total Square (Area) (cm) 0.56 0.09 0.27 -Tunneling No No No -Undermining/Tunneling No No No -Circular Undermining No No No -Wound/Ulcer Outcome Not Healed Not Healed Not Healed -Ulcer Cleansing Rinsed/ Wound Cleanser Rinsed/ Irrigated with Irrigated with Saline Saline -Foul Odor after Cleansing No No No -Bioengineered Tissue No No No -Bleeding Controlled with Pressure Pressure Pressure -Treatment Response Procedure Procedure Procedure Tolerated Well Tolerated Well Tolerated Well -Offloading No No No -Debridement - Subq, 1st 20sq cm No No No #18 Left medial LE cluster -Time 10:24 10:34 11:20 -Correct Patient Yes Yes Yes -Correct Side, Site, Position Yes Yes Yes -Correct Procedure Yes Yes Yes -Procedure Performed Yes Yes Yes -Type of Procedure Debridement Debridement Debridement -Clinical Debridement Subcutaneous Subcutaneous Subcutaneous -Tissue Removed Subcutaneous Subcutaneous Subcutaneous -Post Debridement (cm) - Length 6.5 6.1 5.8 -Post Debridement (cm) - Width 9.1 9.5 9.0 -Post Debridement (cm) - Depth 0.2 0.2 0.2 -Total Square (Post) (cm) 59.15 57.95 52.20 -Area of Debridement (cm) - Length 6.5 6.4 5.8 -Area of Debridement (cm) - Width 9.1 9.5 9.0 -Total Square (Area) (cm) 59.15 60.80 52.20 -Tunneling No No No -Undermining/Tunneling No No No -Circular Undermining No No No -Wound/Ulcer Outcome Not Healed Not Healed Not Healed -Ulcer Cleansing Rinsed/ Rinsed/ Rinsed/ Irrigated with Irrigated with Irrigated with Saline Saline Saline -Foul Odor after Cleansing No No No -Bioengineered Tissue Yes Yes Yes -Type of Bioengineered Tissue Epifix Mesh Epifix Mesh Epifix Mesh -Expiration Date 01/09/28 01/09/28 01/09/28 -Product Lot Number [id number] -Percent Used 100 100 100 -Lot number of Saline Used [id number] -Bleeding Controlled with Pressure Pressure Pressure -Treatment Response Procedure Procedure Procedure Tolerated Well Tolerated Well Tolerated Well -Offloading No No No -Debridement - Subq, 1st 20sq cm No No No -Apply Skin Sub - 1st 25 sq cm - Legs 1 1 1 -Epifix Mesh (per sq cm) 11 11 11 Pain Scale: 0-10 Numeric Is Patient Pain Free? Yes Yes Yes WC - Nurse 3 - General Ulcer D/C NN Start: 03/11/23 09:44 Freq: Status: Active Protocol: Activity Type Activity Date Activity User E-sign Co-sign Detail Recorded Client Recorded Date Recorded By Document 03/11/23 10:58 RB [id number] 03/11/23 10:59 RB Document 03/18/23 11:07 RB [id number] 03/18/23 11:09 RB Document 03/25/23 13:11 RB [id number] 03/25/23 13:13 RB 03/11/23 03/18/23 03/25/23 10:58 11:07 13:11 Wound Care Center Nurse 3 #21 LEFT [place] -Ulcer Cleansing Rinsed/ Irrigated with Saline -Primary Dressing Applied Aquacel Extra Aquacel Extra Aquacel Extra -Other Dressing abd ABD -Primary Dressing Covered/Secured with Dry Gauze,Dry Dry Gauze,Dry Dry Gauze & Gauze & Roll Gauze & Roll Roll Gauze Gauze,Secured Gauze,Secured with Tape with Tape -Aquacel Extra 2 1 1 #19 Left Lateral LE cluster -Other Dressing aquacel extra , aquacel extra/ aquacel extra/ abd abd ABD -Primary Dressing Covered/Secured with Dry Gauze & Dry Gauze & Roll Gauze, Roll Gauze, Secured with Secured with Tape Tape #18 Left medial LE cluster -Ulcer Cleansing Rinsed/ Irrigated with Saline -Other Dressing aquacel extra aquacel extra/ aquacel extra/ abd abd ABD -Primary Dressing Covered/Secured with Dry Gauze & Dry Gauze & Roll Gauze, Roll Gauze, Secured with Secured with Tape Tape Right -Tubular Bandage Single Layer -Size of Tubigrip Used Size E -Size E ($) 1 -Other pt own tubigrip single layer size E Left -Tubular Bandage Single Layer Single Layer -Size of Tubigrip Used Size E Size E -Size E ($) 1 1 Treatment Response Procedure Procedure Tolerated Well Tolerated Well Pain Scale: 0-10 Numeric Is Patient Pain Free? Yes Yes Yes WC - Visit Discharge Discharge Condition Stable Stable Stable Ambulatory Status Ambulatory, Ambulatory, Ambulatory, Walker Walker Walker Transportation Private Auto [facility] transport Private Auto Medication Reconcilliation completed & No No No provided to patient/care provider Clinical Summary of Care Provided Yes Yes Yes Additional Wound Wound debrided: left medial LE cluster Laterality: Left Type of Debridement: Excisional debridement Anesthesia Used: 4% Lidocaine Solution and 5% Lidocaine Gel Depth: Down to and including healthy tissue and in the subcutaneous layer Percentage of wound debrided: 100 Instrument Used: 5mm curette Tissue Removed: yellow slough, devitalized tissue Severity: Fat Layer Exposed Amount of bleeding with debridement: Mild Bleeding Controlled with: Compression and gauze Patient tolerated procedure: Patient tolerated procedure well Additional Wound Wound debrided: left [place] Laterality: Left Type of Debridement: Excisional debridement Anesthesia Used: 4% Lidocaine Solution and 5% Lidocaine Gel Depth: Down to and including healthy tissue and in the subcutaneous layer Percentage of wound debrided: 100 Instrument Used: 5mm curette Tissue Removed: Yellow slough, devitalized tissue Severity: Fat Layer Exposed Amount of bleeding with debridement: Mild Bleeding Controlled with: Compression and gauze Patient tolerated procedure: Patient tolerated procedure well Assessment/Plan Assessment/Plan (1) Ulcer of right lower extremity with fat layer exposed: CODE(S): L97.912 - Non-pressure chronic ulcer of unspecified part of rightlower leg with fat layer exposed (2) Ulcer of left lower extremity with fat layer exposed: CODE(S): L97.922 - Non-pressure chronic ulcer of unspecified part of left lower leg with fat layer exposed (3) Venous insufficiency: CODE(S): I87.2 - Venous insufficiency (chronic) (peripheral) (4) Edema: CODE(S): R60.9 - Edema, unspecified QUALIFIERS: Edema type: unspecified Qualified Code(s): R60.9 - Edema, unspecified (5) History of CVA (cerebrovascular accident): CODE(S): Z86.73 - Personal history of transient ischemic attack (TIA), andcerebral infarction without residual deficits (6) Venous ulcer of left lower extremity with varicose veins: CODE(S): I83.029 - Varicose veins of left lower extremity with ulcer of unspecified site (7) Venous ulcer of both lower extremities with varicose veins: CODE(S): I83.019 - Varicose veins of right lower extremity with ulcer of unspecified site; I83.029 - Varicose veins of left lower extremity with ulcer ofunspecified site (8) Venous ulcers of both lower extremities: CODE(S): I87.2 - Venous insufficiency (chronic) (peripheral) (9) Lymphedema: CODE(S): I89.0 - Lymphedema, not elsewhere classified PLAN: Plan Debridement performed today in clinic as annotated above. At home wound-care instructions: Epifix was applied to ulcers per java tech lead guidelines and covered with adaptic touch secured with steri-strips and will apply Aquacel Extra as secondary dressing to ulcers, cover with ABD and wrap with gauze and use compression with tubigrips and continue lasix 3 tabs BID. Epifix #4 applied today. Off-loading: The patient was instructed to avoid pressure and friction on the affected areas. Reposition every 2 hours at minimum. Avoid prolonged standing and/or dangling of legs. When seated, feet should be elevated at chest level. Frequent ambulation is encouraged. Encouraged lymphedema pump use. Diet: Patient encouraged to increase protein intake while taking caution to avoid high carbohydrate and/or sugar intake. Labs/cultures/imaging: Follow-up: Return in 1 week for wound care follow up and have secondary dressingchanged by home health Tuesday and Tuesday. Return sooner or report to the emergency room should symptoms worsen, or new symptoms arise. Note: [employer] speech recognition hair tinter software was used to create portions of this document. Sound-alike and misspelled words, as well as other hair tinter errors may be contained in the documentation. 03/25/23 1423 <Electronically signed by Patricia Garcia DO> Cosigner Signature (if applicable): CC: ~ Signed [facility] Work Phone: 1(850) 166-325006-09-2023 Progress note Author Patricia Garcia [facility] March 18, 2023 1:28pm Note Date/Time March 18, 2023 1:17p m [facility] [address] [place] [address] Progress Note - Wound Care 03/18/23 1315 MR#: [id number] Acct: [id number] Name: ESTEBAN URBINA Rep #:[id number] : 1955 67 From: Patricia Garcia DO PCP: Dr. Patricia Garcia, DO Status:REG RCR Location: History of Present Illness Date of Service: 03/18/23 Chief Complaint: venous ulcers of left lower extremity History of Wound: Mauricio is a 67 yo gentleman who is here today for evaluation of ulcers to to his bilateral lower legs. He has been treated multiple times in [facility] at the wound healing center for similar ulcers. The left LE ulcer started after he developed increased swelling and blisters of left leg in October and the right leg started sometime at the end of October. He was seen at PCP's office a culture was taken and it was resistant to several antibiotics. He was treated initially with Levaquin but had myalgias and then was treated with doxycycline which he finished 2 days ago. He denies improvementand is having swelling to his left calf and thigh. He has been having swelling to both lower extremities for many years and it has worsened over the last few months. He has not been compliant with compression. He has had increased pain especially in the left leg. He has clear yellow drainage and redness without odor or warmth. He is anti-coagulated on coumadin. He has been washing with Dial soap and witch ifrah. He had been using Collagen at times and using Calcium Alginate and covering with ABD pads during October. He was treated with 3M compression and Aquacel Ag. He was referred to the wound center for ongoing treatment. His ulcers have moderate to heavy drainage. He was recently hospitalized for cellulitis and edema for the last 10 days. He was in the hospital from 11/30/22 until 12/09/22 for treatment of cellulitis and edema. He underwent treatment with Vancomycin and IV lasix and compression. Discharged on 12/09/22 and is currently in the Skilled section of [facility]. He returned to his assisted living apartment on Tuesday12/21/22. Subjective Subjective He tolerated treatment with Epifix and Aquacel Extra and ABDs and tubigrips. Hisleft lower leg ulcers are slightly improved this week but edema is about the same. He unfortunately developed skin tears to his left york. Denies fever, chills, increased pain or increased drainage. Objective Data Objective Data Vital Signs: Vital Signs Temp Pulse Resp BP 97.2 F L 64 20 H 101/60 03/18/23 09:41 03/18/23 09:41 03/18/23 09:41 03/18/23 09:41 Physical Exam Const alert, oriented x3 and no apparent distress General Appearance: cooperative and comfortable HEENT normocephalic and head/scalp atraumatic Lymph Lymphatic: lymphedema moderate Resp normal respiratory effort Effort and Inspection: able to speak in complete sentences Cardio regular rate and regular rhythm Extremity General Extremity: edema bilateral lower extremity Details: severe Skin Wounds: wounds noted Wound Narrative: as in clinical panel Psych mental status grossly normal, thought process normal, cooperative and affect normal Debridement Note Debridement Note Wound debrided: Left lateral LE cluster Laterality: Left Type of Debridement: Excisional debridement Anesthesia Used: 4% Lidocaine Solution Depth: Down to and including healthy tissue and in the subcutaneous layer Percentage of wound debrided: 100 Instrument Used: 5mm curette Tissue Removed: Yellow slough, devitalized tissue Severity: Fat Layer Exposed Amount of bleeding with debridement: Mild Bleeding Controlled with: Compression and gauze Patient tolerated procedure: Patient tolerated procedure well Post-Debridement Measurements and Additional Note: Post-Debridement Measurements/Treatment DEBBIE - Nurse 1 - General Ulcer Assessment Start: 03/11/23 09:44 Freq: Status: Active Protocol: WC.LOWEXT Activity Type Activity Date Activity User E-sign Co-sign Detail Recorded Client Recorded Date Recorded By Document 03/11/23 09:44 AK [id number] 03/11/23 09:46 AK Document 03/18/23 09:41 DL [id number] 03/18/23 09:52 DL 03/11/23 03/18/23 09:44 09:41 - Today's Visit Information Type of service Follow-up Visit Follow-up Visit (Physician/APPLICATIONS SPECIALIST (Physician/APPLICATIONS SPECIALIST ) ) Arrival Mode Ambulatory Ambulatory, Walker Transfer Assistance None Patient Identification Verified (Name & No Yes ) Patient Requires Transmission-Based No No Precautions Vital Signs Temperature (97.8 F-99.1 F) 97.4 F L 97.2 F L Temperature Source Temporal Temporal Pulse Rate (60-100) 77 64 Pulse Location Monitor Monitor Respiratory Rate (12-18) 20 H Respiratory rate source Observation Blood Pressure (90/60-120/80) 126/77 H 101/60 Blood Pressure Mean (mm Hg) 93 73 Source Monitor Monitor History Since Last Visit- (Skip if this is Patient's initial visit) Have you changed medications since your No No last visit? Any new allergies or adverse reactions No No Had a fall/change in ADL's that may No No increase risk of falls Signs or symptoms of abuse and/or No No neglect since last visit Have you been in the hospital since your No No last visit? Has dressing in place as prescribed Yes Yes Has compression in place as prescribed N/A Yes Has offloadiing in place as prescribed N/A N/A Experienced any changes in pain level or No No management Left Footwear Regular Shoe Right Footwear Regular Shoe Pain Scale: 0-10 Numeric Is Patient Pain Free? Yes Yes - Nurse 1 - General Ulcer Measurement Start: 03/11/23 09:44 Freq: Status: Active Protocol: Activity Type Activity Date Activity User E-sign Co-sign Detail Recorded Client Recorded Date Recorded By Document 03/11/23 09:44 JOE [id number] 03/11/23 09:46 AK Document 03/18/23 09:41 DL [id number] 03/18/23 09:52 DL 03/11/23 03/18/23 09:44 09:41 Wound Center Nurse 1 #21 LEFT YORK -Current Size (cm) - Length 2.2 -Current Size (cm) - Width 0.8 -Current Size (cm) - Depth 0.1 -Total Square Cm 1.76 -Exudate Amt Small -Exudate Type Serosanguineous -Wound Margin Distinct, Outline Attached -Granulation Amt Large (67-100%) -Granulation Quality Red -Necrosis Amt Small (1-33%) -Necrotic Tissue Type Adherent Slough -Structure Exposed N/A -Texture (Marie-wound Skin Appearance) Scarring -Moisture (Marie-wound Skin Appearance) Dry/Scaly -Color (Marie-wound Skin Appearance) Hemosiderin Staining -Temperature (Marie-wound Skin No Abnormality Appearance) (Pt Warm) -Tenderness on Palpation (Marie-wound No Skin Appearance) -Ulcer Cleansing Not Cleansed -Foul Odor after Cleansing No -Anesthetic Used 5% Lidocaine Gel #19 Left Lateral LE cluster -Combined with other wound No -Current Size (cm) - Length 7 0.1 -Current Size (cm) - Width 10.5 0.1 -Current Size (cm) - Depth 0.1 0.1 -Total Square Cm 73.5 0.01 -Photo Taken Yes -Tunneling No -Undermining/Tunneling No -Circular Undermining No -Change in Wound Grade/Stage No -Exudate Amt Medium None Present -Exudate Type Serosanguineous -Wound Margin Distinct, Thickened Outline Attached -Granulation Amt Large (67-100%) None Present (0 %) -Granulation Quality Hyper- granulation, Lingle -Slough/Fibrin No -Necrosis Amt None Present (0 Small (1-33%) %) -Necrotic Tissue Type Adherent Slough -Structure Exposed N/A N/A -Texture (Marie-wound Skin Appearance) Assessed, Scarring Scarring -Moisture (Marie-wound Skin Appearance) No Abnormality Dry/Scaly -Color (Marie-wound Skin Appearance) No Abnormality, Hemosiderin Assessed Staining -Temperature (Marie-wound Skin No Abnormality No Abnormality Appearance) (Pt Warm) (Pt Warm) -Tenderness on Palpation (Marie-wound No No Skin Appearance) -Ulcer Cleansing Soap and Water Soap and Water -Foul Odor after Cleansing No No -Anesthetic Used 4% Lidocaine 5% Lidocaine Solution Gel #18 Left medial LE cluster -Combined with other wound No -Current Size (cm) - Length 6.5 5.8 -Current Size (cm) - Width 4 10 -Current Size (cm) - Depth 0.1 0.2 -Total Square Cm 26.0 58.0 -Photo Taken Yes -Tunneling No -Undermining/Tunneling No -Circular Undermining No -Change in Wound Grade/Stage No -Exudate Amt Medium -Exudate Type Serosanguineous Serosanguineous -Wound Margin Distinct, Distinct, Outline Outline Attached Attached -Granulation Amt Large (67-100%) Medium (34-66%) -Granulation Quality Lingle Red -Slough/Fibrin Yes -Necrosis Amt Small (1-33%) Medium (34-66%) -Necrotic Tissue Type Adherent Slough Adherent Slough -Structure Exposed N/A N/A -Texture (Marie-wound Skin Appearance) Assessed, Scarring Scarring -Moisture (Marie-wound Skin Appearance) Assessed Dry/Scaly -Color (Marie-wound Skin Appearance) Assessed, Hemosiderin Hemosiderin Staining Staining -Temperature (Marie-wound Skin No Abnormality No Abnormality Appearance) (Pt Warm) (Pt Warm) -Tenderness on Palpation (Marie-wound Yes No Skin Appearance) -Ulcer Cleansing Soap and Water Soap and Water -Foul Odor after Cleansing No No -Anesthetic Used 4% Lidocaine 5% Lidocaine Solution Gel Right Calf (cm) 42.6 Right Ankle (cm) 30 Left Calf (cm) 42.5 Left Ankle (cm) 27 WC - Nurse 2 - General Ulcer CM Notes Start: 03/11/23 09:44 Freq: Status: Active Protocol: Activity Type Activity Date Activity User E-sign Co-sign Detail Recorded Client Recorded Date Recorded By Document 03/11/23 10:24 MW [id number] 03/11/23 10:35 MW Edit Result 03/11/23 10:24 MW (1) [id number] 03/11/23 10:36 MW Document 03/18/23 10:28 MW [id number] 03/18/23 10:49 MW (1) #21 LEFT YORK - Debridement - Subq, 1st 20sq cm No => Yes 03/11/23 03/18/23 10:24 10:28 Wound Center Nurse 2 #21 LEFT YORK -Time 10:25 10:32 -Correct Patient Yes Yes -Correct Side, Site, Position Yes Yes -Correct Procedure Yes Yes -Procedure Performed Yes Yes -Type of Procedure Debridement Debridement -Clinical Debridement Subcutaneous Subcutaneous -Tissue Removed Subcutaneous Subcutaneous -Post Debridement (cm) - Length 2.5 2.0 -Post Debridement (cm) - Width 1.9 1.0 -Post Debridement (cm) - Depth 0.1 0.1 -Total Square (Post) (cm) 4.75 2.00 -Area of Debridement (cm) - Length 2.5 2.0 -Area of Debridement (cm) - Width 1.9 1.0 -Total Square (Area) (cm) 4.75 2.00 -Tunneling No No -Undermining/Tunneling No No -Circular Undermining No No -Wound/Ulcer Outcome Not Healed Not Healed -Ulcer Cleansing Rinsed/ Rinsed/ Irrigated with Irrigated with Saline Saline -Foul Odor after Cleansing No No -Bioengineered Tissue No No -Bleeding Controlled with Pressure Pressure -Treatment Response Procedure Procedure Tolerated Well Tolerated Well -Offloading No No -Debridement - Subq, 1st 20sq cm Yes Yes #19 Left Lateral LE cluster -Time 10:24 10:33 -Correct Patient Yes Yes -Correct Side, Site, Position Yes Yes -Correct Procedure Yes Yes -Procedure Performed Yes Yes -Type of Procedure Debridement Debridement -Clinical Debridement Subcutaneous Subcutaneous -Tissue Removed Subcutaneous Subcutaneous -Post Debridement (cm) - Length 0.8 0.3 -Post Debridement (cm) - Width 0.7 0.3 -Post Debridement (cm) - Depth 0.1 0.1 -Total Square (Post) (cm) 0.56 0.09 -Area of Debridement (cm) - Length 0.8 0.3 -Area of Debridement (cm) - Width 0.7 0.3 -Total Square (Area) (cm) 0.56 0.09 -Tunneling No No -Undermining/Tunneling No No -Circular Undermining No No -Wound/Ulcer Outcome Not Healed Not Healed -Ulcer Cleansing Rinsed/ Wound Cleanser Irrigated with Saline -Foul Odor after Cleansing No No -Bioengineered Tissue No No -Bleeding Controlled with Pressure Pressure -Treatment Response Procedure Procedure Tolerated Well Tolerated Well -Offloading No No -Debridement - Subq, 1st 20sq cm No No #18 Left medial LE cluster -Time 10:24 10:34 -Correct Patient Yes Yes -Correct Side, Site, Position Yes Yes -Correct Procedure Yes Yes -Procedure Performed Yes Yes -Type of Procedure Debridement Debridement -Clinical Debridement Subcutaneous Subcutaneous -Tissue Removed Subcutaneous Subcutaneous -Post Debridement (cm) - Length 6.5 6.1 -Post Debridement (cm) - Width 9.1 9.5 -Post Debridement (cm) - Depth 0.2 0.2 -Total Square (Post) (cm) 59.15 57.95 -Area of Debridement (cm) - Length 6.5 6.4 -Area of Debridement (cm) - Width 9.1 9.5 -Total Square (Area) (cm) 59.15 60.80 -Tunneling No No -Undermining/Tunneling No No -Circular Undermining No No -Wound/Ulcer Outcome Not Healed Not Healed -Ulcer Cleansing Rinsed/ Rinsed/ Irrigated with Irrigated with Saline Saline -Foul Odor after Cleansing No No -Bioengineered Tissue Yes Yes -Type of Bioengineered Tissue Epifix Mesh Epifix Mesh -Expiration Date 01/09/28 01/09/28 -Product Lot Number [id number] -Percent Used 100 100 -Lot number of Saline Used [id number] -Bleeding Controlled with Pressure Pressure -Treatment Response Procedure Procedure Tolerated Well Tolerated Well -Offloading No No -Debridement - Subq, 1st 20sq cm No No -Apply Skin Sub - 1st 25 sq cm - Legs 1 1 -Epifix Mesh (per sq cm) 11 11 Pain Scale: 0-10 Numeric Is Patient Pain Free? Yes Yes WC - Nurse 3 - General Ulcer D/C NN Start: 03/11/23 09:44 Freq: Status: Active Protocol: Activity Type Activity Date Activity User E-sign Co-sign Detail Recorded Client Recorded Date Recorded By Document 03/11/23 10:58 RB [id number] 03/11/23 10:59 RB Document 03/18/23 11:07 RB [id number] 03/18/23 11:09 RB 03/11/23 03/18/23 10:58 11:07 Wound Care Center Nurse 3 #21 LEFT YORK -Ulcer Cleansing Rinsed/ Irrigated with Saline -Primary Dressing Applied Aquacel Extra Aquacel Extra -Other Dressing abd -Primary Dressing Covered/Secured with Dry Gauze,Dry Dry Gauze,Dry Gauze & Roll Gauze & Roll Gauze,Secured Gauze,Secured with Tape with Tape -Aquacel Extra 2 1 #19 Left Lateral LE cluster -Other Dressing aquacel extra , aquacel extra/ abd abd -Primary Dressing Covered/Secured with Dry Gauze & Roll Gauze, Secured with Tape #18 Left medial LE cluster -Ulcer Cleansing Rinsed/ Irrigated with Saline -Other Dressing aquacel extra aquacel extra/ abd abd -Primary Dressing Covered/Secured with Dry Gauze & Dry Gauze & Roll Gauze, Roll Gauze, Secured with Secured with Tape Tape Right -Tubular Bandage Single Layer -Size of Tubigrip Used Size E -Size E ($) 1 Left -Tubular Bandage Single Layer -Size of Tubigrip Used Size E -Size E ($) 1 Treatment Response Procedure Procedure Tolerated Well Tolerated Well Pain Scale: 0-10 Numeric Is Patient Pain Free? Yes Yes WC - Visit Discharge Discharge Condition Stable Stable Ambulatory Status Ambulatory, Ambulatory, Walker Walker Transportation Private Auto [facility] transport Medication Reconcilliation completed & No No provided to patient/care provider Clinical Summary of Care Provided Yes Yes Additional Wound Wound debrided: left medial LE cluster Laterality: Left Type of Debridement: Excisional debridement Anesthesia Used: 4% Lidocaine Solution and 5% Lidocaine Gel Depth: Down to and including healthy tissue and in the subcutaneous layer Percentage of wound debrided: 100 Instrument Used: 5mm curette Tissue Removed: yellow slough, devitalized tissue Severity: Fat Layer Exposed Amount of bleeding with debridement: Mild Bleeding Controlled with: Compression and gauze Patient tolerated procedure: Patient tolerated procedure well Additional Wound Wound debrided: left york Laterality: Left Type of Debridement: Excisional debridement Anesthesia Used: 4% Lidocaine Solution and 5% Lidocaine Gel Depth: Down to and including healthy tissue and in the subcutaneous layer Percentage of wound debrided: 100 Instrument Used: 5mm curette Tissue Removed: Yellow slough, devitalized tissue Severity: Fat Layer Exposed Amount of bleeding with debridement: Mild Bleeding Controlled with: Compression and gauze Patient tolerated procedure: Patient tolerated procedure well Assessment/Plan Assessment/Plan (1) Ulcer of right lower extremity with fat layer exposed: CODE(S): L97.912 - Non-pressure chronic ulcer of unspecified part of rightlower leg with fat layer exposed (2) Ulcer of left lower extremity with fat layer exposed: CODE(S): L97.922 - Non-pressure chronic ulcer of unspecified part of left lower leg with fat layer exposed (3) Venous insufficiency: CODE(S): I87.2 - Venous insufficiency (chronic) (peripheral) (4) Edema: CODE(S): R60.9 - Edema, unspecified QUALIFIERS: Edema type: unspecified Qualified Code(s): R60.9 - Edema, unspecified (5) History of CVA (cerebrovascular accident): CODE(S): Z86.73 - Personal history of transient ischemic attack (TIA), andcerebral infarction without residual deficits (6) Venous ulcer of left lower extremity with varicose veins: CODE(S): I83.029 - Varicose veins of left lower extremity with ulcer of unspecified site (7) Venous ulcer of both lower extremities with varicose veins: CODE(S): I83.019 - Varicose veins of right lower extremity with ulcer of unspecified site; I83.029 - Varicose veins of left lower extremity with ulcer ofunspecified site (8) Venous ulcers of both lower extremities: CODE(S): I87.2 - Venous insufficiency (chronic) (peripheral) (9) Lymphedema: CODE(S): I89.0 - Lymphedema, not elsewhere classified PLAN: Plan Debridement performed today in clinic as annotated above. At home wound-care instructions: Epifix was applied to ulcers per java tech lead guidelines and covered with adaptic touch secured with steri-strips and will apply Aquacel Extra as secondary dressing to ulcers, cover with ABD and wrap with gauze and use compression with tubigrips and continue lasix 3 tabs BID. Epifix #3 applied today. Off-loading: The patient was instructed to avoid pressure and friction on the affected areas. Reposition every 2 hours at minimum. Avoid prolonged standing and/or dangling of legs. When seated, feet should be elevated at chest level. Frequent ambulation is encouraged. Encouraged lymphedema pump use. Diet: Patient encouraged to increase protein intake while taking caution to avoid high carbohydrate and/or sugar intake. Labs/cultures/imaging: Follow-up: Return in 1 week for wound care follow up and have secondary dressingchanged by home health Tuesday and Tuesday. Return sooner or report to the emergency room should symptoms worsen, or new symptoms arise. Note: [employer] speech recognition hair tinter software was used to create portions of this document. Sound-alike and misspelled words, as well as other hair tinter errors may be contained in the documentation. 03/18/23 1328 <Electronically signed by Patricia Gracia DO> Cosigner Signature (if applicable): CC: ~ Signed [facility] Work Phone: 1(441) 247-298506-02-2023 Progress note Author Patricia Garcia [facility] March 11, 2023 1:48pm Note Date/Time March 11, 2023 1:48p m [facility] [address] [place] [address] Progress Note - Wound Care 03/11/23 1344 MR#: [id number] Acct: [id number] Name: ESTEBAN URBINA Rep #:[id number] : 1955 67 From: Patricia Garcia DO PCP: Dr. Patricia Garcia DO Status:REG RCR Location: History of Present Illness Date of Service: 03/11/23 Chief Complaint: venous ulcers of bilateral lower extremities History of Wound: Mauricio is a 67 yo gentleman who is here today for evaluation of ulcers to to his bilateral lower legs. [facility]. The left LE ulcer started after he developed increased swelling and blisters of left leg in October and the right leg started sometime at the end of October. He was seen at PCP's office a culture was taken and it was resistant to several antibiotics. He was treated initially with Levaquin but had myalgias and then was treated with doxycycline which he finished 2 days ago. He denies improvementand is having swelling to his left calf and thigh. He has been having swelling to both lower extremities for many years and it has worsened over the last few months. He has not been compliant with compression. He has had increased pain especially in the left leg. He has clear yellow drainage and redness without odor or warmth. He is anti-coagulated on coumadin. He has been washing with Dial soap and witch ifrah. He had been using Collagen at times and using Calcium Alginate and covering with ABD pads during October. He was treated with 3M compression and Aquacel Ag. He was referred to the wound center for ongoing treatment. His ulcers have moderate to heavy drainage. He was recently hospitalized for cellulitis and edema for the last 10 days. He was in the hospital from 11/30/22 until 12/09/22 for treatment of cellulitis and edema. He underwent treatment with Vancomycin and IV lasix and compression. Discharged on 12/09/22 and is currently in the Skilled section of [facility]. He returned to his assisted living apartment on Tuesday12/21/22. Subjective Subjective He tolerated treatment with Epifix and Aquacel Extra and ABDs and tubigrips. Hisulcers are slightly improved this week but edema is about the same. He unfortunately developed skin tears to his left york. Denies fever, chills, increased pain or increased drainage. Objective Data Objective Data Vital Signs: Vital Signs Temp Pulse Resp BP 97.4 F L 77 18 126/77 H 03/11/23 09:44 03/11/23 09:44 03/10/23 00:19 03/11/23 09:44 Physical Exam Const alert, oriented x3 and no apparent distress General Appearance: cooperative and comfortable HEENT normocephalic and head/scalp atraumatic Lymph Lymphatic: lymphedema moderate Resp normal respiratory effort Effort and Inspection: able to speak in complete sentences Cardio regular rate and regular rhythm Extremity General Extremity: edema bilateral lower extremity Details: severe Skin Wounds: wounds noted Wound Narrative: as in clinical panel Psych mental status grossly normal, thought process normal, cooperative and affect normal Debridement Note Debridement Note Wound debrided: Left lateral LE cluster Laterality: Left Type of Debridement: Excisional debridement Anesthesia Used: 4% Lidocaine Solution Depth: Down to and including healthy tissue and in the subcutaneous layer Percentage of wound debrided: 100 Instrument Used: 5mm curette Tissue Removed: Yellow slough, devitalized tissue Severity: Fat Layer Exposed Amount of bleeding with debridement: Mild Bleeding Controlled with: Compression and gauze Patient tolerated procedure: Patient tolerated procedure well Post-Debridement Measurements and Additional Note: Post-Debridement Measurements/Treatment WC - Nurse 1 - General Ulcer Assessment Start: 03/11/23 09:44 Freq: Status: Active Protocol: ONDINA Activity Type Activity Date Activity User E-sign Co-sign Detail Recorded Client Recorded Date Recorded By Document 03/11/23 09:44 JOE [id number] 03/11/23 09:46 JOE 03/11/23 09:44 - Today's Visit Information Type of service Follow-up Visit (Physician/APPLICATIONS SPECIALIST ) Arrival Mode Ambulatory Patient Identification Verified (Name & No ) Patient Requires Transmission-Based No Precautions Vital Signs Temperature (97.8 F-99.1 F) 97.4 F L Temperature Source Temporal Pulse Rate (60-100) 77 Pulse Location Monitor Blood Pressure (90/60-120/80) 126/77 H Blood Pressure Mean (mm Hg) 93 Source Monitor History Since Last Visit- (Skip if this is Patient's initial visit) Have you changed medications since your No last visit? Any new allergies or adverse reactions No Had a fall/change in ADL's that may No increase risk of falls Signs or symptoms of abuse and/or No neglect since last visit Have you been in the hospital since your No last visit? Has dressing in place as prescribed Yes Has compression in place as prescribed N/A Has offloadiing in place as prescribed N/A Experienced any changes in pain level or No management Left Footwear Regular Shoe Right Footwear Regular Shoe Pain Scale: 0-10 Numeric Is Patient Pain Free? Yes - Nurse 1 - General Ulcer Measurement Start: 03/11/23 09:44 Freq: Status: Active Protocol: Activity Type Activity Date Activity User E-sign Co-sign Detail Recorded Client Recorded Date Recorded By Document 03/11/23 09:44 JOE [id number] 03/11/23 09:46 JOE 03/11/23 09:44 Wound Center Nurse 1 #19 Left Lateral LE cluster -Combined with other wound No -Current Size (cm) - Length 7 -Current Size (cm) - Width 10.5 -Current Size (cm) - Depth 0.1 -Total Square Cm 73.5 -Photo Taken Yes -Tunneling No -Undermining/Tunneling No -Circular Undermining No -Change in Wound Grade/Stage No -Exudate Amt Medium -Exudate Type Serosanguineous -Wound Margin Distinct, Outline Attached -Granulation Amt Large (67-100%) -Granulation Quality Hyper- granulation, Lingle -Slough/Fibrin No -Necrosis Amt None Present (0 %) -Structure Exposed N/A -Texture (Marie-wound Skin Appearance) Assessed, Scarring -Moisture (Marie-wound Skin Appearance) No Abnormality -Color (Marie-wound Skin Appearance) No Abnormality, Assessed -Temperature (Marie-wound Skin No Abnormality Appearance) (Pt Warm) -Tenderness on Palpation (Marie-wound No Skin Appearance) -Ulcer Cleansing Soap and Water -Foul Odor after Cleansing No -Anesthetic Used 4% Lidocaine Solution #18 Left medial LE cluster -Combined with other wound No -Current Size (cm) - Length 6.5 -Current Size (cm) - Width 4 -Current Size (cm) - Depth 0.1 -Total Square Cm 26.0 -Photo Taken Yes -Tunneling No -Undermining/Tunneling No -Circular Undermining No -Change in Wound Grade/Stage No -Exudate Type Serosanguineous -Wound Margin Distinct, Outline Attached -Granulation Amt Large (67-100%) -Granulation Quality Lingle -Slough/Fibrin Yes -Necrosis Amt Small (1-33%) -Necrotic Tissue Type Adherent Slough -Structure Exposed N/A -Texture (Marie-wound Skin Appearance) Assessed, Scarring -Moisture (Marie-wound Skin Appearance) Assessed -Color (Marie-wound Skin Appearance) Assessed, Hemosiderin Staining -Temperature (Marie-wound Skin No Abnormality Appearance) (Pt Warm) -Tenderness on Palpation (Marie-wound Yes Skin Appearance) -Ulcer Cleansing Soap and Water -Foul Odor after Cleansing No -Anesthetic Used 4% Lidocaine Solution WC - Nurse 2 - General Ulcer CM Notes Start: 03/11/23 09:44 Freq: Status: Active Protocol: Activity Type Activity Date Activity User E-sign Co-sign Detail Recorded Client Recorded Date Recorded By Document 03/11/23 10:24 MW [id number] 03/11/23 10:35 MW Edit Result 03/11/23 10:24 MW (1) [id number] 03/11/23 10:36 MW (1) #21 LEFT YORK - Debridement - Subq, 1st 20sq cm No => Yes 03/11/23 10:24 Wound Center Nurse 2 #21 LEFT YORK -Time 10:25 -Correct Patient Yes -Correct Side, Site, Position Yes -Correct Procedure Yes -Procedure Performed Yes -Type of Procedure Debridement -Clinical Debridement Subcutaneous -Tissue Removed Subcutaneous -Post Debridement (cm) - Length 2.5 -Post Debridement (cm) - Width 1.9 -Post Debridement (cm) - Depth 0.1 -Total Square (Post) (cm) 4.75 -Area of Debridement (cm) - Length 2.5 -Area of Debridement (cm) - Width 1.9 -Total Square (Area) (cm) 4.75 -Tunneling No -Undermining/Tunneling No -Circular Undermining No -Wound/Ulcer Outcome Not Healed -Ulcer Cleansing Rinsed/ Irrigated with Saline -Foul Odor after Cleansing No -Bioengineered Tissue No -Bleeding Controlled with Pressure -Treatment Response Procedure Tolerated Well -Offloading No -Debridement - Subq, 1st 20sq cm Yes #19 Left Lateral LE cluster -Time 10:24 -Correct Patient Yes -Correct Side, Site, Position Yes -Correct Procedure Yes -Procedure Performed Yes -Type of Procedure Debridement -Clinical Debridement Subcutaneous -Tissue Removed Subcutaneous -Post Debridement (cm) - Length 0.8 -Post Debridement (cm) - Width 0.7 -Post Debridement (cm) - Depth 0.1 -Total Square (Post) (cm) 0.56 -Area of Debridement (cm) - Length 0.8 -Area of Debridement (cm) - Width 0.7 -Total Square (Area) (cm) 0.56 -Tunneling No -Undermining/Tunneling No -Circular Undermining No -Wound/Ulcer Outcome Not Healed -Ulcer Cleansing Rinsed/ Irrigated with Saline -Foul Odor after Cleansing No -Bioengineered Tissue No -Bleeding Controlled with Pressure -Treatment Response Procedure Tolerated Well -Offloading No -Debridement - Subq, 1st 20sq cm No #18 Left medial LE cluster -Time 10:24 -Correct Patient Yes -Correct Side, Site, Position Yes -Correct Procedure Yes -Procedure Performed Yes -Type of Procedure Debridement -Clinical Debridement Subcutaneous -Tissue Removed Subcutaneous -Post Debridement (cm) - Length 6.5 -Post Debridement (cm) - Width 9.1 -Post Debridement (cm) - Depth 0.2 -Total Square (Post) (cm) 59.15 -Area of Debridement (cm) - Length 6.5 -Area of Debridement (cm) - Width 9.1 -Total Square (Area) (cm) 59.15 -Tunneling No -Undermining/Tunneling No -Circular Undermining No -Wound/Ulcer Outcome Not Healed -Ulcer Cleansing Rinsed/ Irrigated with Saline -Foul Odor after Cleansing No -Bioengineered Tissue Yes -Type of Bioengineered Tissue Epifix Mesh -Expiration Date 01/09/28 -Product Lot Number [id number] -Percent Used 100 -Lot number of Saline Used [id number] -Bleeding Controlled with Pressure -Treatment Response Procedure Tolerated Well -Offloading No -Debridement - Subq, 1st 20sq cm No -Apply Skin Sub - 1st 25 sq cm - Legs 1 -Epifix Mesh (per sq cm) 11 Pain Scale: 0-10 Numeric Is Patient Pain Free? Yes - Nurse 3 - General Ulcer D/C NN Start: 03/11/23 09:44 Freq: Status: Active Protocol: Activity Type Activity Date Activity User E-sign Co-sign Detail Recorded Client Recorded Date Recorded By Document 03/11/23 10:58 [id number] 03/11/23 10:59 03/11/23 10:58 Wound Care Center Nurse 3 #21 LEFT YORK -Primary Dressing Applied Aquacel Extra -Primary Dressing Covered/Secured with Dry Gauze,Dry Gauze & Roll Gauze,Secured with Tape -Aquacel Extra 2 #19 Left Lateral LE cluster -Other Dressing aquacel extra , abd #18 Left medial LE cluster -Other Dressing aquacel extra abd -Primary Dressing Covered/Secured with Dry Gauze & Roll Gauze, Secured with Tape Treatment Response Procedure Tolerated Well Pain Scale: 0-10 Numeric Is Patient Pain Free? Yes - Visit Discharge Discharge Condition Stable Ambulatory Status Ambulatory, Walker Transportation Private Auto Medication Reconcilliation completed & No provided to patient/care provider Clinical Summary of Care Provided Yes Additional Wound Wound debrided: left medial LE cluster Laterality: Left Type of Debridement: Excisional debridement Anesthesia Used: 4% Lidocaine Solution and 5% Lidocaine Gel Depth: Down to and including healthy tissue and in the subcutaneous layer Percentage of wound debrided: 100 Instrument Used: 5mm curette Tissue Removed: yellow slough, devitalized tissue Severity: Fat Layer Exposed Amount of bleeding with debridement: Mild Bleeding Controlled with: Compression and gauze Patient tolerated procedure: Patient tolerated procedure well Additional Wound Wound debrided: left [place] Laterality: Left Type of Debridement: Excisional debridement Anesthesia Used: 4% Lidocaine Solution and 5% Lidocaine Gel Depth: Down to and including healthy tissue and in the subcutaneous layer Percentage of wound debrided: 100 Instrument Used: 5mm curette Tissue Removed: Yellow slough, devitalized tissue Severity: Fat Layer Exposed Amount of bleeding with debridement: Mild Bleeding Controlled with: Compression and gauze Patient tolerated procedure: Patient tolerated procedure well Assessment/Plan Assessment/Plan (1) Ulcer of right lower extremity with fat layer exposed: CODE(S): L97.912 - Non-pressure chronic ulcer of unspecified part of rightlower leg with fat layer exposed (2) Ulcer of left lower extremity with fat layer exposed: CODE(S): L97.922 - Non-pressure chronic ulcer of unspecified part of left lower leg with fat layer exposed (3) Venous insufficiency: CODE(S): I87.2 - Venous insufficiency (chronic) (peripheral) (4) Edema: CODE(S): R60.9 - Edema, unspecified QUALIFIERS: Edema type: unspecified Qualified Code(s): R60.9 - Edema, unspecified (5) History of CVA (cerebrovascular accident): CODE(S): Z86.73 - Personal history of transient ischemic attack (TIA), andcerebral infarction without residual deficits (6) Venous ulcer of left lower extremity with varicose veins: CODE(S): I83.029 - Varicose veins of left lower extremity with ulcer of unspecified site (7) Venous ulcer of both lower extremities with varicose veins: CODE(S): I83.019 - Varicose veins of right lower extremity with ulcer of unspecified site; I83.029 - Varicose veins of left lower extremity with ulcer ofunspecified site (8) Venous ulcers of both lower extremities: CODE(S): I87.2 - Venous insufficiency (chronic) (peripheral) (9) Lymphedema: CODE(S): I89.0 - Lymphedema, not elsewhere classified PLAN: Plan Debridement performed today in clinic as annotated above. At home wound-care instructions: Epifix was applied to ulcers per java tech lead guidelines and covered with adaptic touch secured with steri-strips and will apply Aquacel Extra as secondary dressing to ulcers, cover with ABD and wrap with gauze and use compression with tubigrips and continue lasix 3 tabs BID. Epifix #2 applied today. Off-loading: The patient was instructed to avoid pressure and friction on the affected areas. Reposition every 2 hours at minimum. Avoid prolonged standing and/or dangling of legs. When seated, feet should be elevated at chest level. Frequent ambulation is encouraged. Encouraged lymphedema pump use. Diet: Patient encouraged to increase protein intake while taking caution to avoid high carbohydrate and/or sugar intake. Labs/cultures/imaging: Follow-up: Return in 1 week for wound care follow up and have secondary dressingchanged by home health Tuesday and Tuesday. Return sooner or report to the emergency room should symptoms worsen, or new symptoms arise. Note: [employer] speech recognition hair tinter software was used to create portions of this document. Sound-alike and misspelled words, as well as other hair tinter errors may be contained in the documentation. 03/11/23 1348 <Electronically signed by Patricia Garcia DO> Cosigner Signature (if applicable): CC: ~ Signed [facility] Work Phone: [phone] 157-881305-19-[address] Garcia [facility] February 25, 2023 3:05pm Note Date/Time February 25, 2023 3:05p [facility] [address] [place] [id number] Progress Note - Wound Care 02/25/23 1501 MR#: [id number] Acct: [id number] Name: ESTEBAN URBINA Rep #:[id number] : 1955 67 From: Patricia Garcia DO PCP: Dr. Patricia Garcia DO Status:REG RCR Location: History of Present Illness Date of Service: 02/25/23 Chief Complaint: venous ulcers of bilateral lower extremities History of Wound: Mauricio is a 67 yo gentleman who is here today for evaluation of ulcers to to his bilateral lower legs. [facility]. The left LE ulcer started after he developed increased swelling and blisters of left leg in October and the right leg started sometime at the end of October. He was seen at PCP's office a culture was taken and it was resistant to several antibiotics. He was treated initially with Levaquin but had myalgias and then was treated with doxycycline which he finished 2 days ago. He denies improvementand is having swelling to his left calf and thigh. He has been having swelling to both lower extremities for many years and it has worsened over the last few months. He has not been compliant with compression. He has had increased pain especially in the left leg. He has clear yellow drainage and redness without odor or warmth. He is anti-coagulated on coumadin. He has been washing with Dial soap and witch ifrah. He had been using Collagen at times and using Calcium Alginate and covering with ABD pads during October. He was treated with 3M compression and Aquacel Ag. He was referred to the wound center for ongoing treatment. His ulcers have moderate to heavy drainage. He was recently hospitalized for cellulitis and edema for the last 10 days. He was in the hospital from 11/30/22 until 12/09/22 for treatment of cellulitis and edema. He underwent treatment with Vancomycin and IV lasix and compression. Discharged on 12/09/22 and is currently in the Skilled section of [facility]. He returned to his assisted living apartment on Tuesday12/21/22. Subjective Subjective He tolerated treatment this week with Aquacel Extra and ABDs and tubigrips. His ulcers are slightly improved this week but edema is about the same. Denies fever, chills, increased pain or increased drainage. Objective Data Objective Data Vital Signs: Vital Signs Temp Pulse Resp BP 96.7 F L 69 18 137/76 H 02/25/23 10:12 02/25/23 10:12 02/25/23 10:12 02/25/23 10:12 Physical Exam Const alert, oriented x3 and no apparent distress General Appearance: cooperative and comfortable HEENT normocephalic and head/scalp atraumatic Lymph Lymphatic: lymphedema moderate Resp normal respiratory effort Effort and Inspection: able to speak in complete sentences Cardio regular rate and regular rhythm Extremity General Extremity: edema bilateral lower extremity Details: severe Skin Wounds: wounds noted Wound Narrative: as in clinical panel Psych mental status grossly normal, thought process normal, cooperative and affect normal Debridement Note Debridement Note Wound debrided: Left lateral LE cluster Laterality: Left Type of Debridement: Excisional debridement Anesthesia Used: 4% Lidocaine Solution Depth: Down to and including healthy tissue and in the subcutaneous layer Percentage of wound debrided: 100 Instrument Used: 5mm curette Tissue Removed: Yellow slough, devitalized tissue Severity: Fat Layer Exposed Amount of bleeding with debridement: Mild Bleeding Controlled with: Compression and gauze Patient tolerated procedure: Patient tolerated procedure well Post-Debridement Measurements and Additional Note: Post-Debridement Measurements/Treatment - Nurse 1 - General Ulcer Assessment Start: 02/11/23 09:54 Freq: Status: Active Protocol: ONDINA Activity Type Activity Date Activity User E-sign Co-sign Detail Recorded Client Recorded Date Recorded By Document 02/11/23 09:54 KARTHIK [id number] 02/11/23 10:04 JF Document 02/18/23 10:16 DL [id number] 02/18/23 10:23 DL Document 02/25/23 10:12 JF [id number] 02/25/23 10:15 JF 02/11/23 02/18/23 02/25/23 09:54 10:16 10:12 - Today's Visit Information Type of service Follow-up Visit Follow-up Visit Follow-up Visit (Physician/APPLICATIONS SPECIALIST (Physician/APPLICATIONS SPECIALIST (Physician/APPLICATIONS SPECIALIST ) ) ) Arrival Mode Ambulatory, Ambulatory, Ambulatory, Wheelchair Walker Walker Transfer Assistance None Patient Identification Verified (Name & Yes Yes Yes ) Patient Requires Transmission-Based No No No Precautions Vital Signs Temperature (97.8 F-99.1 F) 96.8 F L 96.8 F L 96.7 F L Temperature Source Temporal Temporal Temporal Pulse Rate (60-100) 74 70 69 Pulse Location Monitor Monitor Monitor Respiratory Rate (12-18) 18 22 H 18 Respiratory rate source Observation Observation Observation Blood Pressure (90/60-120/80) 152/84 H 123/52 H 137/76 H Blood Pressure Mean (mm Hg) 106 75 96 Source Monitor Monitor Monitor Position Semi-Fowlers Semi-Fowlers Blood Pressure Location Right Arm Right Arm History Since Last Visit- (Skip if this is Patient's initial visit) Have you changed medications since your No No No last visit? Any new allergies or adverse reactions No No No Had a fall/change in ADL's that may No No No increase risk of falls Signs or symptoms of abuse and/or No No No neglect since last visit Have you been in the hospital since your No No No last visit? Has dressing in place as prescribed Yes Yes Yes Has compression in place as prescribed Yes Yes Yes Has offloadiing in place as prescribed N/A N/A N/A Experienced any changes in pain level or No No No management Left Footwear Regular Shoe Regular Shoe Right Footwear Regular Shoe Regular Shoe Pain Scale: 0-10 Numeric Is Patient Pain Free? Yes Yes Yes - Nurse 1 - General Ulcer Measurement Start: 02/11/23 09:54 Freq: Status: Active Protocol: Activity Type Activity Date Activity User E-sign Co-sign Detail Recorded Client Recorded Date Recorded By Document 02/11/23 09:54 [id number] 02/11/23 10:04 JF Document 02/18/23 10:16 DL [id number] 02/18/23 10:23 DL Document 02/25/23 10:12 JF [id number] 02/25/23 10:15 JF 02/11/23 02/18/23 02/25/23 09:54 10:16 10:12 Wound Center Nurse 1 #19 Left Lateral LE cluster -Combined with other wound No No -Current Size (cm) - Length 1.0 1.2 1.3 -Current Size (cm) - Width 1.0 0.8 0.5 -Current Size (cm) - Depth 0.1 0.2 0.1 -Total Square Cm 1.00 0.96 0.65 -Photo Taken Yes No No -Epithelialization Medium 34-66% None Present -Tunneling No No -Undermining/Tunneling No No -Circular Undermining No No -Exudate Amt Small Small Medium -Exudate Type Serosanguineous Serosanguineous Serosanguineous -Wound Margin Flat & Intact Distinct, Flat & Intact Outline Attached -Granulation Amt Large (67-100%) Large (67-100%) Large (67-100%) -Granulation Quality Red Red Red -Slough/Fibrin Yes Yes -Necrosis Amt Small (1-33%) Small (1-33%) Small (1-33%) -Necrotic Tissue Type Adherent Slough Adherent Slough Adherent Slough -Structure Exposed N/A N/A N/A -Texture (Marie-wound Skin Appearance) Assessed, Scarring Assessed, Localized Edema Localized Edema -Moisture (Marie-wound Skin Appearance) Assessed,Dry/ No Abnormality Assessed,Dry/ Scaly Scaly -Color (Marie-wound Skin Appearance) Not Assessed Hemosiderin Assessed Staining -Temperature (Marie-wound Skin No Abnormality No Abnormality No Abnormality Appearance) (Pt Warm) (Pt Warm) (Pt Warm) -Tenderness on Palpation (Marie-wound No No No Skin Appearance) -Ulcer Cleansing Wound Cleanser Soap and Water Soap and Water -Foul Odor after Cleansing No No No -Anesthetic Used 5% Lidocaine 5% Lidocaine 5% Lidocaine Gel Gel Gel #18 Left medial LE cluster -Combined with other wound No No -Current Size (cm) - Length 6.5 6.8 6.2 -Current Size (cm) - Width 9.4 9 9.2 -Current Size (cm) - Depth 0.2 0.3 0.2 -Total Square Cm 61.10 61.2 57.04 -Photo Taken Yes No No -Epithelialization Small 1-33% None Present -Tunneling No No -Undermining/Tunneling No No -Circular Undermining No No -Exudate Amt Large Large Large -Exudate Type Serosanguineous Serosanguineous Serosanguineous -Wound Margin Flat & Intact Distinct, Flat & Intact Outline Attached -Granulation Amt Large (67-100%) Large (67-100%) Large (67-100%) -Granulation Quality Red Red Red -Slough/Fibrin Yes Yes -Necrosis Amt Small (1-33%) Small (1-33%) Small (1-33%) -Necrotic Tissue Type Adherent Slough Adherent Slough Adherent Slough -Structure Exposed N/A N/A N/A -Texture (Marie-wound Skin Appearance) Assessed, Scarring Assessed, Localized Edema Localized Edema -Moisture (Marie-wound Skin Appearance) Assessed,Dry/ No Abnormality Assessed,Dry/ Scaly Scaly -Color (Marie-wound Skin Appearance) Assessed, Hemosiderin Assessed, Erythema Staining Hemosiderin Staining -Temperature (Marie-wound Skin No Abnormality No Abnormality No Abnormality Appearance) (Pt Warm) (Pt Warm) (Pt Warm) -Tenderness on Palpation (Marie-wound No No No Skin Appearance) -Ulcer Cleansing Wound Cleanser Soap and Water Wound Cleanser -Foul Odor after Cleansing No No No -Anesthetic Used 5% Lidocaine 5% Lidocaine 5% Lidocaine Gel Gel Gel Lower Limb Edema Present Yes Yes Right Calf (cm) 44 Right Ankle (cm) 28.2 Left Calf (cm) 42.3 42 42.5 Left Ankle (cm) 29.8 29.5 28.5 WC - Nurse 2 - General Ulcer CM Notes Start: 02/11/23 09:54 Freq: Status: Active Protocol: Activity Type Activity Date Activity User E-sign Co-sign Detail Recorded Client Recorded Date Recorded By Document 02/11/23 10:05 MW [id number] 02/11/23 10:24 MW Document 02/18/23 11:00 MW [id number] 02/18/23 11:21 MW Document 02/25/23 10:55 [id number] 02/25/23 11:01 02/11/23 02/18/23 02/25/23 10:05 11:00 10:55 Wound Center Nurse 2 #19 Left Lateral LE cluster -Time 10:06 11:00 10:55 -Correct Patient Yes Yes Yes -Correct Side, Site, Position Yes Yes Yes -Correct Procedure Yes Yes Yes -Procedure Performed Yes Yes Yes -Type of Procedure Debridement Debridement Debridement -Clinical Debridement Subcutaneous Subcutaneous Subcutaneous -Tissue Removed Subcutaneous Subcutaneous Subcutaneous -Post Debridement (cm) - Length 1.2 1.2 0.9 -Post Debridement (cm) - Width 1.2 1.0 0.5 -Post Debridement (cm) - Depth 0.1 0.1 0.1 -Total Square (Post) (cm) 1.44 1.20 0.45 -Area of Debridement (cm) - Length 1.2 1.2 0.9 -Area of Debridement (cm) - Width 1.2 1.0 0.5 -Total Square (Area) (cm) 1.44 1.20 0.45 -Tunneling No No No -Undermining/Tunneling No No No -Circular Undermining No No No -Wound/Ulcer Outcome Not Healed Not Healed Not Healed -Ulcer Cleansing Rinsed/ Rinsed/ Rinsed/ Irrigated with Irrigated with Irrigated with Saline Saline Saline -Foul Odor after Cleansing No No No -Bioengineered Tissue No No No -Bleeding Controlled with Pressure Pressure Pressure -Treatment Response Procedure Procedure Procedure Tolerated Well Tolerated Well Tolerated Well -Offloading No No No -Debridement - Subq, 1st 20sq cm Yes Yes Yes -Debridement, SubQ, ea addt'l 20sq cm 2 2 or part thereof #18 Left medial LE cluster -Time 10:07 11:01 10:56 -Correct Patient Yes Yes Yes -Correct Side, Site, Position Yes Yes Yes -Correct Procedure Yes Yes Yes -Procedure Performed Yes Yes Yes -Type of Procedure Debridement Debridement Debridement -Clinical Debridement Subcutaneous Subcutaneous Subcutaneous -Tissue Removed Subcutaneous Subcutaneous Subcutaneous -Post Debridement (cm) - Length 5.5 5.9 6.0 -Post Debridement (cm) - Width 8.2 8.7 9.2 -Post Debridement (cm) - Depth 0.3 0.3 0.2 -Total Square (Post) (cm) 45.10 51.33 55.20 -Area of Debridement (cm) - Length 5.5 5.9 6.0 -Area of Debridement (cm) - Width 8.2 8.7 9.2 -Total Square (Area) (cm) 45.10 51.33 55.20 -Tunneling No No No -Undermining/Tunneling No No No -Circular Undermining No No No -Wound/Ulcer Outcome Not Healed Not Healed Not Healed -Ulcer Cleansing Rinsed/ Rinsed/ Rinsed/ Irrigated with Irrigated with Irrigated with Saline Saline Saline -Foul Odor after Cleansing No No No -Bioengineered Tissue No No Yes -Type of Bioengineered Tissue Epifix Mesh -Expiration Date 12/09/27 -Product Lot Number [id number] -Percent Used 100 -Lot number of Saline Used [id number] -Bleeding Controlled with Pressure Pressure Pressure -Treatment Response Procedure Procedure Procedure Tolerated Well Tolerated Well Tolerated Well -Offloading No No No -Debridement - Subq, 1st 20sq cm No No No -Apply Skin Sub - 1st 25 sq cm - Legs 1 -Apply Skin Sub - each addt'l 25 sq cm 2 - Legs -Epifix Mesh (per sq cm) 11 Pain Scale: 0-10 Numeric Is Patient Pain Free? Yes Yes Yes WC - Nurse 3 - General Ulcer D/C NN Start: 02/11/23 09:54 Freq: Status: Active Protocol: Activity Type Activity Date Activity User E-sign Co-sign Detail Recorded Client Recorded Date Recorded By Document 02/11/23 10:43 RB [id number] 02/11/23 10:45 RB Document 02/18/23 11:40 RB [id number] 02/18/23 11:41 RB Document 02/25/23 12:20 RB [id number] 02/25/23 12:22 RB 02/11/23 02/18/23 02/25/23 10:43 11:40 12:20 Wound Care Center Nurse 3 #19 Left Lateral LE cluster -Ulcer Cleansing Rinsed/ Rinsed/ Irrigated with Irrigated with Saline Saline -Primary Dressing Applied Aquacel Extra Aquacel Extra Aquacel Extra -Other Dressing abd, kerlix abd ABD -Primary Dressing Covered/Secured with Secured with Dry Gauze & Dry Gauze & Tape Roll Gauze, Roll Gauze, Secured with Secured with Tape Tape -Aquacel Extra 1 1 1 #18 Left medial LE cluster -Ulcer Cleansing Rinsed/ Rinsed/ Irrigated with Irrigated with Saline Saline -Other Dressing aquacel extra, aquacel extra aquacel extra, abd ABD -Primary Dressing Covered/Secured with Dry Gauze & Dry Gauze & Dry Gauze & Roll Gauze, Roll Gauze, Roll Gauze, Secured with Secured with Secured with Tape Tape Tape Right -Tubular Bandage Double Layer -Size of Tubigrip Used Size E -Size E ($) 2 -Other single layer tubigrip Left -Tubular Bandage Double Layer Single Layer -Size of Tubigrip Used Size E Size E -Size E ($) 2 1 -Other single layer tubigrip Treatment Response Procedure Procedure Procedure Tolerated Well Tolerated Well Tolerated Well Pain Scale: 0-10 Numeric Is Patient Pain Free? Yes Yes Yes Teaching: Wound Center Compression Wraps & Stockings -Person Taught Patient -Teaching Method Discussion, Demonstration -Response to teaching Verbalize understanding Dressing Your Wound -Person Taught Patient -Teaching Method Discussion, Demonstration -Response to teaching Verbalize understanding WC - Visit Discharge Discharge Condition Stable Stable Stable Ambulatory Status Ambulatory, Ambulatory Ambulatory, Walker Walker Transportation Private Auto Private Auto Private Auto Medication Reconcilliation completed & No No No provided to patient/care provider Clinical Summary of Care Provided Yes Yes Yes Additional Wound Wound debrided: left medial LE cluster Laterality: Left Type of Debridement: Excisional debridement Anesthesia Used: 4% Lidocaine Solution and 5% Lidocaine Gel Depth: Down to and including healthy tissue and in the subcutaneous layer Percentage of wound debrided: 100 Instrument Used: 5mm curette Tissue Removed: yellow slough, devitalized tissue Severity: Fat Layer Exposed Amount of bleeding with debridement: Mild Bleeding Controlled with: Compression and gauze Patient tolerated procedure: Patient tolerated procedure well Assessment/Plan Assessment/Plan (1) Ulcer of right lower extremity with fat layer exposed: CODE(S): L97.912 - Non-pressure chronic ulcer of unspecified part of rightlower leg with fat layer exposed (2) Ulcer of left lower extremity with fat layer exposed: CODE(S): L97.922 - Non-pressure chronic ulcer of unspecified part of left lower leg with fat layer exposed (3) Venous insufficiency: CODE(S): I87.2 - Venous insufficiency (chronic) (peripheral) (4) Edema: CODE(S): R60.9 - Edema, unspecified QUALIFIERS: Edema type: unspecified Qualified Code(s): R60.9 - Edema, unspecified (5) History of CVA (cerebrovascular accident): CODE(S): Z86.73 - Personal history of transient ischemic attack (TIA), andcerebral infarction without residual deficits (6) Venous ulcer of left lower extremity with varicose veins: CODE(S): I83.029 - Varicose veins of left lower extremity with ulcer of unspecified site (7) Venous ulcer of both lower extremities with varicose veins: CODE(S): I83.019 - Varicose veins of right lower extremity with ulcer of unspecified site; I83.029 - Varicose veins of left lower extremity with ulcer ofunspecified site (8) Venous ulcers of both lower extremities: CODE(S): I87.2 - Venous insufficiency (chronic) (peripheral) (9) Lymphedema: CODE(S): I89.0 - Lymphedema, not elsewhere classified PLAN: Plan Debridement performed today in clinic as annotated above. At home wound-care instructions: Epifix was approved and was applied to ulcers per java tech lead guidelines and covered with adaptic touch secured with steri-strips and will apply Aquacel Extra as secondary dressing to ulcers, cover with ABD and wrap with gauze and use compression with tubigrips and continue lasix 3 tabs BID. Epifix #1 applied today. Off-loading: The patient was instructed to avoid pressure and friction on the affected areas. Reposition every 2 hours at minimum. Avoid prolonged standing and/or dangling of legs. When seated, feet should be elevated at chest level. Frequent ambulation is encouraged. Encouraged lymphedema pump use. Diet: Patient encouraged to increase protein intake while taking caution to avoid high carbohydrate and/or sugar intake. Labs/cultures/imaging: Follow-up: Return in 2 weeks for wound care follow up and have secondary dressing changed by home health until seen in 2 weeks. Return sooner or report to the emergency room should symptoms worsen, or new symptoms arise. Note: [employer] speech recognition hair tinter software was used to create portions of this document. Sound-alike and misspelled words, as well as other hair tinter errors may be contained in the documentation. 02/25/23 1505 <Electronically signed by Patricia Garcia DO> Cosigner Signature (if applicable): CC: ~ Signed [facility] Work Phone: [phone]) 430-364505-12-[address] Garcia [facility] February 18, 2023 1:28pm Note Date/Time February 18, 2023 1:28p m [facility] [address] [place] [address] Progress Note - Wound Care 02/18/23 1323 MR#: [id number] Acct: [id number] Name: ESTEBAN URBINA Rep #:[id number] : 1955 67 From: Patricia Garcia DO PCP: Dr. Patricia Garcia DO Status:REG RCR Location: History of Present Illness Date of Service: 02/18/23 Chief Complaint: venous ulcers of bilateral lower extremities History of Wound: Mauricio is a 67 yo gentleman who is here today for evaluation of ulcers to to his bilateral lower legs. He has been treated multiple times in [facility] at the wound healing center for similar ulcers. The left LE ulcer started after he developed increased swelling and blisters of left leg in October and the right leg started sometime at the end of October. He was seen at PCP's office a culture was taken and it was resistant to several antibiotics. He was treated initially with Levaquin but had myalgias and then was treated with doxycycline which he finished 2 days ago. He denies improvementand is having swelling to his left calf and thigh. He has been having swelling to both lower extremities for many years and it has worsened over the last few months. He has not been compliant with compression. He has had increased pain especially in the left leg. He has clear yellow drainage and redness without odor or warmth. He is anti-coagulated on coumadin. He has been washing with Dial soap and witch ifrah. He had been using Collagen at times and using Calcium Alginate and covering with ABD pads during October. He was treated with 3M compression and Aquacel Ag. He was referred to the wound center for ongoing treatment. His ulcers have moderate to heavy drainage. He was recently hospitalized for cellulitis and edema for the last 10 days. He was in the hospital from 11/30/22 until 12/09/22 for treatment of cellulitis and edema. He underwent treatment with Vancomycin and IV lasix and compression. Discharged on 12/09/22 and is currently in the [facility]. He returned to his assisted living apartment on Tuesday12/21/22. Subjective Subjective He tolerated treatment this week with Aquacel Extra and ABDs and tubigrips. His ulcers are slightly improved this week but edema is worse. Wound culture was positive for Staph and Pseudomonas. He completed Levaquin treatment. Notes increase in pain in his left leg from antibiotic. Denies fever, chills, increased pain or increased drainage. Objective Data Objective Data Vital Signs: Vital Signs Temp Pulse Resp BP 96.8 F L 70 22 H 123/52 H 02/18/23 10:16 02/18/23 10:16 02/18/23 10:16 02/18/23 10:16 Physical Exam Const alert, oriented x3 and no apparent distress General Appearance: cooperative and comfortable HEENT normocephalic and head/scalp atraumatic Lymph Lymphatic: lymphedema moderate Resp normal respiratory effort Effort and Inspection: able to speak in complete sentences Cardio regular rate and regular rhythm Extremity General Extremity: edema bilateral lower extremity Details: severe Skin Wounds: wounds noted Wound Narrative: as in clinical panel Psych mental status grossly normal, thought process normal, cooperative and affect normal Debridement Note Debridement Note Wound debrided: Left lateral LE cluster Laterality: Left Type of Debridement: Excisional debridement Anesthesia Used: 4% Lidocaine Solution Depth: Down to and including healthy tissue and in the subcutaneous layer Percentage of wound debrided: 100 Instrument Used: 5mm curette Tissue Removed: Yellow slough, devitalized tissue Severity: Fat Layer Exposed Amount of bleeding with debridement: Mild Bleeding Controlled with: Compression and gauze Patient tolerated procedure: Patient tolerated procedure well Post-Debridement Measurements and Additional Note: Post-Debridement Measurements/Treatment WC - Nurse 1 - General Ulcer Assessment Start: 02/11/23 09:54 Freq: Status: Active Protocol: ONDINA Activity Type Activity Date Activity User E-sign Co-sign Detail Recorded Client Recorded Date Recorded By Document 02/11/23 09:54 KARTHIK [id number] 02/11/23 10:04 Document 02/18/23 10:16 DL [id number] 02/18/23 10:23 DL 02/11/23 02/18/23 09:54 10:16 - Today's Visit Information Type of service Follow-up Visit Follow-up Visit (Physician/APPLICATIONS SPECIALIST (Physician/APPLICATIONS SPECIALIST ) ) Arrival Mode Ambulatory, Ambulatory, Wheelchair Walker Transfer Assistance None Patient Identification Verified (Name & Yes Yes ) Patient Requires Transmission-Based No No Precautions Vital Signs Temperature (97.8 F-99.1 F) 96.8 F L 96.8 F L Temperature Source Temporal Temporal Pulse Rate (60-100) 74 70 Pulse Location Monitor Monitor Respiratory Rate (12-18) 18 22 H Respiratory rate source Observation Observation Blood Pressure (90/60-120/80) 152/84 H 123/52 H Blood Pressure Mean (mm Hg) 106 75 Source Monitor Monitor Position Semi-Fowlers Blood Pressure Location Right Arm History Since Last Visit- (Skip if this is Patient's initial visit) Have you changed medications since your No No last visit? Any new allergies or adverse reactions No No Had a fall/change in ADL's that may No No increase risk of falls Signs or symptoms of abuse and/or No No neglect since last visit Have you been in the hospital since your No No last visit? Has dressing in place as prescribed Yes Yes Has compression in place as prescribed Yes Yes Has offloadiing in place as prescribed N/A N/A Experienced any changes in pain level or No No management Left Footwear Regular Shoe Right Footwear Regular Shoe Pain Scale: 0-10 Numeric Is Patient Pain Free? Yes Yes - Nurse 1 - General Ulcer Measurement Start: 02/11/23 09:54 Freq: Status: Active Protocol: Activity Type Activity Date Activity User E-sign Co-sign Detail Recorded Client Recorded Date Recorded By Document 02/11/23 09:54 KARTHIK [id number] 02/11/23 10:04 JF Document 02/18/23 10:16 DL [id number] 02/18/23 10:23 DL 02/11/23 02/18/23 09:54 10:16 Wound Center Nurse 1 #19 Left Lateral LE cluster -Combined with other wound No -Current Size (cm) - Length 1.0 1.2 -Current Size (cm) - Width 1.0 0.8 -Current Size (cm) - Depth 0.1 0.2 -Total Square Cm 1.00 0.96 -Photo Taken Yes No -Epithelialization Medium 34-66% -Tunneling No -Undermining/Tunneling No -Circular Undermining No -Exudate Amt Small Small -Exudate Type Serosanguineous Serosanguineous -Wound Margin Flat & Intact Distinct, Outline Attached -Granulation Amt Large (67-100%) Large (67-100%) -Granulation Quality Red Red -Slough/Fibrin Yes -Necrosis Amt Small (1-33%) Small (1-33%) -Necrotic Tissue Type Adherent Slough Adherent Slough -Structure Exposed N/A N/A -Texture (Marie-wound Skin Appearance) Assessed, Scarring Localized Edema -Moisture (Marie-wound Skin Appearance) Assessed,Dry/ No Abnormality Scaly -Color (Marie-wound Skin Appearance) Not Assessed Hemosiderin Staining -Temperature (Marie-wound Skin No Abnormality No Abnormality Appearance) (Pt Warm) (Pt Warm) -Tenderness on Palpation (Marie-wound No No Skin Appearance) -Ulcer Cleansing Wound Cleanser Soap and Water -Foul Odor after Cleansing No No -Anesthetic Used 5% Lidocaine 5% Lidocaine Gel Gel #18 Left medial LE cluster -Combined with other wound No -Current Size (cm) - Length 6.5 6.8 -Current Size (cm) - Width 9.4 9 -Current Size (cm) - Depth 0.2 0.3 -Total Square Cm 61.10 61.2 -Photo Taken Yes No -Epithelialization Small 1-33% -Tunneling No -Undermining/Tunneling No -Circular Undermining No -Exudate Amt Large Large -Exudate Type Serosanguineous Serosanguineous -Wound Margin Flat & Intact Distinct, Outline Attached -Granulation Amt Large (67-100%) Large (67-100%) -Granulation Quality Red Red -Slough/Fibrin Yes -Necrosis Amt Small (1-33%) Small (1-33%) -Necrotic Tissue Type Adherent Slough Adherent Slough -Structure Exposed N/A N/A -Texture (Marie-wound Skin Appearance) Assessed, Scarring Localized Edema -Moisture (Marie-wound Skin Appearance) Assessed,Dry/ No Abnormality Scaly -Color (Marie-wound Skin Appearance) Assessed, Hemosiderin Erythema Staining -Temperature (Marie-wound Skin No Abnormality No Abnormality Appearance) (Pt Warm) (Pt Warm) -Tenderness on Palpation (Marie-wound No No Skin Appearance) -Ulcer Cleansing Wound Cleanser Soap and Water -Foul Odor after Cleansing No No -Anesthetic Used 5% Lidocaine 5% Lidocaine Gel Gel Lower Limb Edema Present Yes Right Calf (cm) 44 Right Ankle (cm) 28.2 Left Calf (cm) 42.3 42 Left Ankle (cm) 29.8 29.5 WC - Nurse 2 - General Ulcer CM Notes Start: 02/11/23 09:54 Freq: Status: Active Protocol: Activity Type Activity Date Activity User E-sign Co-sign Detail Recorded Client Recorded Date Recorded By Document 02/11/23 10:05 MW [id number] 02/11/23 10:24 MW Document 02/18/23 11:00 MW [id number] 02/18/23 11:21 MW 02/11/23 02/18/23 10:05 11:00 Wound Center Nurse 2 #19 Left Lateral LE cluster -Time 10:06 11:00 -Correct Patient Yes Yes -Correct Side, Site, Position Yes Yes -Correct Procedure Yes Yes -Procedure Performed Yes Yes -Type of Procedure Debridement Debridement -Clinical Debridement Subcutaneous Subcutaneous -Tissue Removed Subcutaneous Subcutaneous -Post Debridement (cm) - Length 1.2 1.2 -Post Debridement (cm) - Width 1.2 1.0 -Post Debridement (cm) - Depth 0.1 0.1 -Total Square (Post) (cm) 1.44 1.20 -Area of Debridement (cm) - Length 1.2 1.2 -Area of Debridement (cm) - Width 1.2 1.0 -Total Square (Area) (cm) 1.44 1.20 -Tunneling No No -Undermining/Tunneling No No -Circular Undermining No No -Wound/Ulcer Outcome Not Healed Not Healed -Ulcer Cleansing Rinsed/ Rinsed/ Irrigated with Irrigated with Saline Saline -Foul Odor after Cleansing No No -Bioengineered Tissue No No -Bleeding Controlled with Pressure Pressure -Treatment Response Procedure Procedure Tolerated Well Tolerated Well -Offloading No No -Debridement - Subq, 1st 20sq cm Yes Yes -Debridement, SubQ, ea addt'l 20sq cm 2 2 or part thereof #18 Left medial LE cluster -Time 10:07 11:01 -Correct Patient Yes Yes -Correct Side, Site, Position Yes Yes -Correct Procedure Yes Yes -Procedure Performed Yes Yes -Type of Procedure Debridement Debridement -Clinical Debridement Subcutaneous Subcutaneous -Tissue Removed Subcutaneous Subcutaneous -Post Debridement (cm) - Length 5.5 5.9 -Post Debridement (cm) - Width 8.2 8.7 -Post Debridement (cm) - Depth 0.3 0.3 -Total Square (Post) (cm) 45.10 51.33 -Area of Debridement (cm) - Length 5.5 5.9 -Area of Debridement (cm) - Width 8.2 8.7 -Total Square (Area) (cm) 45.10 51.33 -Tunneling No No -Undermining/Tunneling No No -Circular Undermining No No -Wound/Ulcer Outcome Not Healed Not Healed -Ulcer Cleansing Rinsed/ Rinsed/ Irrigated with Irrigated with Saline Saline -Foul Odor after Cleansing No No -Bioengineered Tissue No No -Bleeding Controlled with Pressure Pressure -Treatment Response Procedure Procedure Tolerated Well Tolerated Well -Offloading No No -Debridement - Subq, 1st 20sq cm No No Pain Scale: 0-10 Numeric Is Patient Pain Free? Yes Yes - Nurse 3 - General Ulcer D/C NN Start: 02/11/23 09:54 Freq: Status: Active Protocol: Activity Type Activity Date Activity User E-sign Co-sign Detail Recorded Client Recorded Date Recorded By Document 02/11/23 10:43 RB [id number] 02/11/23 10:45 RB Document 02/18/23 11:40 RB [id number] 02/18/23 11:41 RB 02/11/23 02/18/23 10:43 11:40 Wound Care Center Nurse 3 #19 Left Lateral LE cluster -Ulcer Cleansing Rinsed/ Rinsed/ Irrigated with Irrigated with Saline Saline -Primary Dressing Applied Aquacel Extra Aquacel Extra -Other Dressing abd, kerlix abd -Primary Dressing Covered/Secured with Secured with Dry Gauze & Tape Roll Gauze, Secured with Tape -Aquacel Extra 1 1 #18 Left medial LE cluster -Ulcer Cleansing Rinsed/ Rinsed/ Irrigated with Irrigated with Saline Saline -Other Dressing aquacel extra, aquacel extra abd -Primary Dressing Covered/Secured with Dry Gauze & Dry Gauze & Roll Gauze, Roll Gauze, Secured with Secured with Tape Tape Right -Tubular Bandage Double Layer -Size of Tubigrip Used Size E -Size E ($) 2 Left -Tubular Bandage Double Layer Single Layer -Size of Tubigrip Used Size E Size E -Size E ($) 2 1 Treatment Response Procedure Procedure Tolerated Well Tolerated Well Pain Scale: 0-10 Numeric Is Patient Pain Free? Yes Yes WC - Visit Discharge Discharge Condition Stable Stable Ambulatory Status Ambulatory, Ambulatory Walker Transportation Private Auto Private Auto Medication Reconcilliation completed & No No provided to patient/care provider Clinical Summary of Care Provided Yes Yes Additional Wound Wound debrided: left medial LE cluster Laterality: Left Type of Debridement: Excisional debridement Anesthesia Used: 4% Lidocaine Solution and 5% Lidocaine Gel Depth: Down to and including healthy tissue and in the subcutaneous layer Percentage of wound debrided: 100 Instrument Used: 5mm curette Tissue Removed: yellow slough, devitalized tissue Severity: Fat Layer Exposed Amount of bleeding with debridement: Mild Bleeding Controlled with: Compression and gauze Patient tolerated procedure: Patient tolerated procedure well Assessment/Plan Assessment/Plan (1) Ulcer of right lower extremity with fat layer exposed: CODE(S): L97.912 - Non-pressure chronic ulcer of unspecified part of rightlower leg with fat layer exposed (2) Ulcer of left lower extremity with fat layer exposed: CODE(S): L97.922 - Non-pressure chronic ulcer of unspecified part of left lower leg with fat layer exposed (3) Venous insufficiency: CODE(S): I87.2 - Venous insufficiency (chronic) (peripheral) (4) Edema: CODE(S): R60.9 - Edema, unspecified QUALIFIERS: Edema type: unspecified Qualified Code(s): R60.9 - Edema, unspecified (5) History of CVA (cerebrovascular accident): CODE(S): Z86.73 - Personal history of transient ischemic attack (TIA), andcerebral infarction without residual deficits (6) Venous ulcer of left lower extremity with varicose veins: CODE(S): I83.029 - Varicose veins of left lower extremity with ulcer of unspecified site (7) Venous ulcer of both lower extremities with varicose veins: CODE(S): I83.019 - Varicose veins of right lower extremity with ulcer of unspecified site; I83.029 - Varicose veins of left lower extremity with ulcer ofunspecified site (8) Venous ulcers of both lower extremities: CODE(S): I87.2 - Venous insufficiency (chronic) (peripheral) (9) Lymphedema: CODE(S): I89.0 - Lymphedema, not elsewhere classified PLAN: Plan Debridement performed today in clinic as annotated above. At home wound-care instructions: Apply Aquacel Extra to ulcers, cover with ABD and wrap with gauze and use compression with tubigrips and continue lasix 2 tabsBID. Plan to apply for Epifix application as he has not been improving as expected. It is medically necessary to prevent limb loss. Off-loading: The patient was instructed to avoid pressure and friction on the affected areas. Reposition every 2 hours at minimum. Avoid prolonged standing and/or dangling of legs. When seated, feet should be elevated at chest level. Frequent ambulation is encouraged. Encouraged lymphedema pump use. Diet: Patient encouraged to increase protein intake while taking caution to avoid high carbohydrate and/or sugar intake. Labs/cultures/imaging: Follow-up: Return in 1 week for wound care follow up. Return sooner or report tothe emergency room should symptoms worsen, or new symptoms arise. Note: [employer] speech recognition hair tinter software was used to create portions of this document. Sound-alike and misspelled words, as well as other hair tinter errors may be contained in the documentation. 02/18/23 1328 <Electronically signed by Patriica Garcia DO> Cosigner Signature (if applicable): CC: ~ Signed [facility] Work Phone: 1(340) 429-445705-05-[address] Garcia [facility] February 11, 2023 1:57pm Note Date/Time February 11, 2023 1:57pm [facility] [address] [place], [place] [id number] Progress Note - Wound Care 02/11/23 1353 MR#: [id number] Acct: [id number] Name: ESTEBAN URBINA Rep #:[id number] : 1955 67 From: Patricia Garcia DO PCP: Dr. Patricia Garcia, DO Status:REG RCR Location: History of Present Illness Date of Service: 02/11/23 Chief Complaint: venous ulcers of bilateral lower extremities History of Wound: Mauricio is a 67 yo gentleman who is here today for evaluation of ulcers to to his bilateral lower legs. He has been treated multiple times in [facility] at the wound healing center for similar ulcers. The left LE ulcer started after he developed increased swelling and blisters of left leg in October and the right leg started sometime at the end of October. He was seen at PCP's office a culture was taken and it was resistant to several antibiotics. He was treated initially with Levaquin but had myalgias and then was treated with doxycycline which he finished 2 days ago. He denies improvementand is having swelling to his left calf and thigh. He has been having swelling to both lower extremities for many years and it has worsened over the last few months. He has not been compliant with compression. He has had increased pain especially in the left leg. He has clear yellow drainage and redness without odor or warmth. He is anti-coagulated on coumadin. He has been washing with Dial soap and witch ifrah. He had been using Collagen at times and using Calcium Alginate and covering with ABD pads during October. He was treated with 3M compression and Aquacel Ag. He was referred to the wound center for ongoing treatment. His ulcers have moderate to heavy drainage. He was recently hospitalized for cellulitis and edema for the last 10 days. He was in the hospital from 11/30/22 until 12/09/22 for treatment of cellulitis and edema. He underwent treatment with Vancomycin and IV lasix and compression. Discharged on 12/09/22 and is currently in the Skilled section of [facility]. He returned to his assisted living apartment on Tuesday12/21/22. Subjective Subjective He tolerated treatment this week with Aquacel Extra and ABDs and tubigrips. His ulcers are slightly improved this week but edema is worse. Wound culture was positive for Staph and Pseudomonas. He is on day 6 of Levaquin treatment. Notes increase in pain in his left leg from antibiotic. Denies fever, chills, increased pain or increased drainage. Objective Data Objective Data Vital Signs: Vital Signs Temp Pulse Resp BP 96.8 F L 74 18 152/84 H 02/11/23 09:54 02/11/23 09:54 02/11/23 09:54 02/11/23 09:54 Physical Exam Const alert, oriented x3 and no apparent distress General Appearance: cooperative and comfortable HEENT normocephalic and head/scalp atraumatic Lymph Lymphatic: lymphedema moderate Resp normal respiratory effort Effort and Inspection: able to speak in complete sentences Cardio regular rate and regular rhythm Extremity General Extremity: edema bilateral lower extremity Details: severe Skin Wounds: wounds noted Wound Narrative: as in clinical panel Psych mental status grossly normal, thought process normal, cooperative and affect normal Debridement Note Debridement Note Wound debrided: Left lateral LE cluster Laterality: Left Type of Debridement: Excisional debridement Anesthesia Used: 4% Lidocaine Solution Depth: Down to and including healthy tissue and in the subcutaneous layer Percentage of wound debrided: 100 Instrument Used: 5mm curette Tissue Removed: Yellow slough, devitalized tissue Severity: Fat Layer Exposed Amount of bleeding with debridement: Mild Bleeding Controlled with: Compression and gauze Patient tolerated procedure: Patient tolerated procedure well Post-Debridement Measurements and Additional Note: Post-Debridement Measurements/Treatment - Nurse 1 - General Ulcer Assessment Start: 02/11/23 09:54 Freq: Status: Active Protocol: DEBBIE.MARIAJOSE Activity Type Activity Date Activity User E-sign Co-sign Detail Recorded Client Recorded Date Recorded By Document 02/11/23 09:54 KARTHIK [id number] 02/11/23 10:04 KARTHIK 02/11/23 09:54 - Today's Visit Information Type of service Follow-up Visit (Physician/APPLICATIONS SPECIALIST ) Arrival Mode Ambulatory, Wheelchair Patient Identification Verified (Name & Yes ) Patient Requires Transmission-Based No Precautions Vital Signs Temperature (97.8 F-99.1 F) 96.8 F L Temperature Source Temporal Pulse Rate (60-100) 74 Pulse Location Monitor Respiratory Rate (12-18) 18 Respiratory rate source Observation Blood Pressure (90/60-120/80) 152/84 H Blood Pressure Mean (mm Hg) 106 Source Monitor Position Semi-Fowlers Blood Pressure Location Right Arm History Since Last Visit- (Skip if this is Patient's initial visit) Have you changed medications since your No last visit? Any new allergies or adverse reactions No Had a fall/change in ADL's that may No increase risk of falls Signs or symptoms of abuse and/or No neglect since last visit Have you been in the hospital since your No last visit? Has dressing in place as prescribed Yes Has compression in place as prescribed Yes Has offloadiing in place as prescribed N/A Experienced any changes in pain level or No management Left Footwear Regular Shoe Right Footwear Regular Shoe Pain Scale: 0-10 Numeric Is Patient Pain Free? Yes WC - Nurse 1 - General Ulcer Measurement Start: 02/11/23 09:54 Freq: Status: Active Protocol: Activity Type Activity Date Activity User E-sign Co-sign Detail Recorded Client Recorded Date Recorded By Document 02/11/23 09:54 KARTHIK [id number] 02/11/23 10:04 KARTHIK 02/11/23 09:54 Wound Center Nurse 1 #19 Left Lateral LE cluster -Combined with other wound No -Current Size (cm) - Length 1.0 -Current Size (cm) - Width 1.0 -Current Size (cm) - Depth 0.1 -Total Square Cm 1.00 -Photo Taken Yes -Epithelialization Medium 34-66% -Tunneling No -Undermining/Tunneling No -Circular Undermining No -Exudate Amt Small -Exudate Type Serosanguineous -Wound Margin Flat & Intact -Granulation Amt Large (67-100%) -Granulation Quality Red -Slough/Fibrin Yes -Necrosis Amt Small (1-33%) -Necrotic Tissue Type Adherent Slough -Structure Exposed N/A -Texture (Marie-wound Skin Appearance) Assessed, Localized Edema -Moisture (Marie-wound Skin Appearance) Assessed,Dry/ Scaly -Color (Marie-wound Skin Appearance) Not Assessed -Temperature (Marie-wound Skin No Abnormality Appearance) (Pt Warm) -Tenderness on Palpation (Marie-wound No Skin Appearance) -Ulcer Cleansing Wound Cleanser -Foul Odor after Cleansing No -Anesthetic Used 5% Lidocaine Gel #18 Left medial LE cluster -Combined with other wound No -Current Size (cm) - Length 6.5 -Current Size (cm) - Width 9.4 -Current Size (cm) - Depth 0.2 -Total Square Cm 61.10 -Photo Taken Yes -Epithelialization Small 1-33% -Tunneling No -Undermining/Tunneling No -Circular Undermining No -Exudate Amt Large -Exudate Type Serosanguineous -Wound Margin Flat & Intact -Granulation Amt Large (67-100%) -Granulation Quality Red -Slough/Fibrin Yes -Necrosis Amt Small (1-33%) -Necrotic Tissue Type Adherent Slough -Structure Exposed N/A -Texture (Marie-wound Skin Appearance) Assessed, Localized Edema -Moisture (Marie-wound Skin Appearance) Assessed,Dry/ Scaly -Color (Marie-wound Skin Appearance) Assessed, Erythema -Temperature (Marie-wound Skin No Abnormality Appearance) (Pt Warm) -Tenderness on Palpation (Marie-wound No Skin Appearance) -Ulcer Cleansing Wound Cleanser -Foul Odor after Cleansing No -Anesthetic Used 5% Lidocaine Gel Lower Limb Edema Present Yes Left Calf (cm) 42.3 Left Ankle (cm) 29.8 WC - Nurse 2 - General Ulcer CM Notes Start: 02/11/23 09:54 Freq: Status: Active Protocol: Activity Type Activity Date Activity User E-sign Co-sign Detail Recorded Client Recorded Date Recorded By Document 02/11/23 10:05 MW [id number] 02/11/23 10:24 MW 02/11/23 10:05 Wound Center Nurse 2 #19 Left Lateral LE cluster -Time 10:06 -Correct Patient Yes -Correct Side, Site, Position Yes -Correct Procedure Yes -Procedure Performed Yes -Type of Procedure Debridement -Clinical Debridement Subcutaneous -Tissue Removed Subcutaneous -Post Debridement (cm) - Length 1.2 -Post Debridement (cm) - Width 1.2 -Post Debridement (cm) - Depth 0.1 -Total Square (Post) (cm) 1.44 -Area of Debridement (cm) - Length 1.2 -Area of Debridement (cm) - Width 1.2 -Total Square (Area) (cm) 1.44 -Tunneling No -Undermining/Tunneling No -Circular Undermining No -Wound/Ulcer Outcome Not Healed -Ulcer Cleansing Rinsed/ Irrigated with Saline -Foul Odor after Cleansing No -Bioengineered Tissue No -Bleeding Controlled with Pressure -Treatment Response Procedure Tolerated Well -Offloading No -Debridement - Subq, 1st 20sq cm Yes -Debridement, SubQ, ea addt'l 20sq cm 2 or part thereof #18 Left medial LE cluster -Time 10:07 -Correct Patient Yes -Correct Side, Site, Position Yes -Correct Procedure Yes -Procedure Performed Yes -Type of Procedure Debridement -Clinical Debridement Subcutaneous -Tissue Removed Subcutaneous -Post Debridement (cm) - Length 5.5 -Post Debridement (cm) - Width 8.2 -Post Debridement (cm) - Depth 0.3 -Total Square (Post) (cm) 45.10 -Area of Debridement (cm) - Length 5.5 -Area of Debridement (cm) - Width 8.2 -Total Square (Area) (cm) 45.10 -Tunneling No -Undermining/Tunneling No -Circular Undermining No -Wound/Ulcer Outcome Not Healed -Ulcer Cleansing Rinsed/ Irrigated with Saline -Foul Odor after Cleansing No -Bioengineered Tissue No -Bleeding Controlled with Pressure -Treatment Response Procedure Tolerated Well -Offloading No -Debridement - Subq, 1st 20sq cm No Pain Scale: 0-10 Numeric Is Patient Pain Free? Yes - Nurse 3 - General Ulcer D/C NN Start: 02/11/23 09:54 Freq: Status: Active Protocol: Activity Type Activity Date Activity User E-sign Co-sign Detail Recorded Client Recorded Date Recorded By Document 02/11/23 10:43 ARPIT [id number] 02/11/23 10:45 ARPIT 02/11/23 10:43 Wound Care Center Nurse 3 #19 Left Lateral LE cluster -Ulcer Cleansing Rinsed/ Irrigated with Saline -Primary Dressing Applied Aquacel Extra -Other Dressing abd, kerlix -Primary Dressing Covered/Secured with Secured with Tape -Aquacel Extra 1 #18 Left medial LE cluster -Ulcer Cleansing Rinsed/ Irrigated with Saline -Other Dressing aquacel extra, abd -Primary Dressing Covered/Secured with Dry Gauze & Roll Gauze, Secured with Tape Right -Tubular Bandage Double Layer -Size of Tubigrip Used Size E -Size E ($) 2 Left -Tubular Bandage Double Layer -Size of Tubigrip Used Size E -Size E ($) 2 Treatment Response Procedure Tolerated Well Pain Scale: 0-10 Numeric Is Patient Pain Free? Yes - Visit Discharge Discharge Condition Stable Ambulatory Status Ambulatory, Walker Transportation Private Auto Medication Reconcilliation completed & No provided to patient/care provider Clinical Summary of Care Provided Yes Additional Wound Wound debrided: left medial LE cluster Laterality: Left Type of Debridement: Excisional debridement Anesthesia Used: 4% Lidocaine Solution and 5% Lidocaine Gel Depth: Down to and including healthy tissue and in the subcutaneous layer Percentage of wound debrided: 100 Instrument Used: 5mm curette Tissue Removed: yellow slough, devitalized tissue Severity: Fat Layer Exposed Amount of bleeding with debridement: Mild Bleeding Controlled with: Compression and gauze Patient tolerated procedure: Patient tolerated procedure well Assessment/Plan Assessment/Plan (1) Ulcer of right lower extremity with fat layer exposed: CODE(S): L97.912 - Non-pressure chronic ulcer of unspecified part of rightlower leg with fat layer exposed (2) Ulcer of left lower extremity with fat layer exposed: CODE(S): L97.922 - Non-pressure chronic ulcer of unspecified part of left lower leg with fat layer exposed (3) Venous insufficiency: CODE(S): I87.2 - Venous insufficiency (chronic) (peripheral) (4) Edema: CODE(S): R60.9 - Edema, unspecified QUALIFIERS: Edema type: unspecified Qualified Code(s): R60.9 - Edema, unspecified (5) History of CVA (cerebrovascular accident): CODE(S): Z86.73 - Personal history of transient ischemic attack (TIA), andcerebral infarction without residual deficits (6) Venous ulcer of left lower extremity with varicose veins: CODE(S): I83.029 - Varicose veins of left lower extremity with ulcer of unspecified site (7) Venous ulcer of both lower extremities with varicose veins: CODE(S): I83.019 - Varicose veins of right lower extremity with ulcer of unspecified site; I83.029 - Varicose veins of left lower extremity with ulcer ofunspecified site (8) Venous ulcers of both lower extremities: CODE(S): I87.2 - Venous insufficiency (chronic) (peripheral) (9) Lymphedema: CODE(S): I89.0 - Lymphedema, not elsewhere classified PLAN: Plan Debridement performed today in clinic as annotated above. At home wound-care instructions: Apply Aquacel Extra to ulcers, Cover with ABD and wrap with gauze and use compression with tubigrips and continue lasix 2 tabsBID. Off-loading: The patient was instructed to avoid pressure and friction on the affected areas. Reposition every 2 hours at minimum. Avoid prolonged standing and/or dangling of legs. When seated, feet should be elevated at chest level. Frequent ambulation is encouraged. Encouraged lymphedema pump use. Diet: Patient encouraged to increase protein intake while taking caution to avoid high carbohydrate and/or sugar intake. Labs/cultures/imaging: Culture positive for Pseudomonas and Staph. On Levaquin. Follow-up: Return in 1 week for wound care follow up. Return sooner or report tothe emergency room should symptoms worsen, or new symptoms arise. Note: [employer] speech recognition hair tinter software was used to create portions of this document. Sound-alike and misspelled words, as well as other hair tinter errors may be contained in the documentation. 02/11/23 0902 <Electronically signed by Patricia Garcia DO> Cosigner Signature (if applicable): CC: ~ Signed [facility] Work Phone: [phone] 516-146904-28-[address] Garcia [facility] February 04, 2023 11:39am Note Date/Time February 04, 2023 11: 38am [facility] [address] [place] [id number] Progress Note - Wound Care 02/04/23 1132 MR#: [id number] Acct: [id number] Name: ESTEBAN URBINA Rep #:[id number] : 1955 67 From: Patricia Garcia DO PCP: Dr. Patricia Garcia DO Status:REG RCR Location: History of Present Illness Date of Service: 02/04/23 Chief Complaint: venous ulcers of bilateral lower extremities History of Wound: Mauricio is a 67 yo gentleman who is here today for evaluation of ulcers to to his bilateral lower legs. [facility]. The left LE ulcer started after he developed increased swelling and blisters of left leg in October and the right leg started sometime at the end of October. He was seen at PCP's office a culture was taken and it was resistant to several antibiotics. He was treated initially with Levaquin but had myalgias and then was treated with doxycycline which he finished 2 days ago. He denies improvementand is having swelling to his left calf and thigh. He has been having swelling to both lower extremities for many years and it has worsened over the last few months. He has not been compliant with compression. He has had increased pain especially in the left leg. He has clear yellow drainage and redness without odor or warmth. He is anti-coagulated on coumadin. He has been washing with Dial soap and witch ifrah. He had been using Collagen at times and using Calcium Alginate and covering with ABD pads during October. He was treated with 3M compression and Aquacel Ag. He was referred to the wound center for ongoing treatment. His ulcers have moderate to heavy drainage. He was recently hospitalized for cellulitis and edema for the last 10 days. He was in the hospital from 11/30/22 until 12/09/22 for treatment of cellulitis and edema. He underwent treatment with Vancomycin and IV lasix and compression. Discharged on 12/09/22 and is currently in the Skilled [facility] of [facility]. He returned to his assisted living apartment on Tuesday12/21/22. Subjective Subjective He tolerated treatment this week with Aquacel Extra and ABDs and tubigrips. His ulcers and edema are slightly improved this week. Wound culture was positive forStaph and Pseudomonas. He hasn't started antibiotic yet. But was prescribed Levaquin based on sensitivities. Denies fever, chills, increased pain or increaseddrainage. Objective Data Objective Data Vital Signs: Vital Signs Temp Pulse Resp BP O2 Del Method 97.7 F L 74 18 125/70 H Room Air 02/04/23 09:16 02/04/23 09:16 02/04/23 09:16 02/04/23 09:16 01/14/23 10:12 Oxygen Delivery Method Room Air Lab / Micro Data Micro: Microbiology 01/28/23 10:30 Wound Abcess - Leg, Left Gram Stain - Final 01/28/23 10:30 Wound Abcess - Leg, Left Wound Culture - Final Staphylococcus aureus Enterobacter cloacae complex Pseudomonas aeruginosa 01/28/23 10:30 Wound Abcess - Leg, Left Anaerobic Culture - Final No anaerobic bacteria isolated. Physical Exam Const alert, oriented x3 and no apparent distress General Appearance: cooperative and comfortable HEENT normocephalic and head/scalp atraumatic Lymph Lymphatic: lymphedema moderate Resp normal respiratory effort Effort and Inspection: able to speak in complete sentences Cardio regular rate and regular rhythm Extremity General Extremity: edema bilateral lower extremity Details: severe Skin Wounds: wounds noted Wound Narrative: as in clinical panel Psych mental status grossly normal, thought process normal, cooperative and affect normal Debridement Note Debridement Note Wound debrided: Left lateral LE cluster Laterality: Left Type of Debridement: Excisional debridement Anesthesia Used: 4% Lidocaine Solution Depth: Down to and including healthy tissue and in the subcutaneous layer Percentage of wound debrided: 100 Instrument Used: 5mm curette Tissue Removed: Yellow slough, devitalized tissue Severity: Fat Layer Exposed Amount of bleeding with debridement: Mild Bleeding Controlled with: Compression and gauze Patient tolerated procedure: Patient tolerated procedure well Post-Debridement Measurements and Additional Note: Post-Debridement Measurements/Treatment - Nurse 1 - General Ulcer Assessment Start: 01/14/23 10:12 Freq: Status: Active Protocol: ONDINA Activity Type Activity Date Activity User E-sign Co-sign Detail Recorded Client Recorded Date Recorded By Document 01/14/23 10:12 MW Desktop 01/14/23 10:25 MW Document 01/21/23 10:02 DL [id number] 01/21/23 10:12 DL Document 01/28/23 09:48 RB [id number] 01/28/23 10:01 RB Document 02/04/23 09:16 RB [id number] 02/04/23 09:26 RB 01/14/23 01/21/23 01/28/23 10:12 10:02 09:48 - Today's Visit Information Type of service Follow-up Visit Follow-up Visit Follow-up Visit (Physician/APPLICATIONS SPECIALIST (Physician/APPLICATIONS SPECIALIST (Physician/APPLICATIONS SPECIALIST ) ) ) Arrival Mode Ambulatory, Ambulatory, Ambulatory, Walker Walker Walker Transfer Assistance None None None Accompanied by SELF Patient Identification Verified (Name & Yes Yes Yes ) Patient Requires Transmission-Based No No No Precautions Safety Precautions Fall Prevention Vital Signs Temperature (97.8 F-99.1 F) 97.0 F L 97 F L 97 F L Temperature Source Temporal Temporal Temporal Pulse Rate (60-100) 62 75 75 Pulse Location Monitor Monitor Monitor Respiratory Rate (12-18) 18 20 H 18 Respiratory rate source Observation Observation Observation Oxygen Delivery Method Room Air Blood Pressure (90/60-120/80) 139/85 H 116/63 122/71 H Blood Pressure Mean (mm Hg) 103 80 88 Source Monitor Monitor Monitor Position Sitting Semi-Fowlers Blood Pressure Location Right Arm Left Arm History Since Last Visit- (Skip if this is Patient's initial visit) Have you changed medications since your No No No last visit? Any new allergies or adverse reactions No No No Had a fall/change in ADL's that may No No No increase risk of falls Signs or symptoms of abuse and/or No No No neglect since last visit Have you been in the hospital since your No No No last visit? Has dressing in place as prescribed Yes Yes Yes Has compression in place as prescribed Yes Yes Yes Has offloadiing in place as prescribed N/A N/A No Experienced any changes in pain level or No No No management Left Footwear Regular Shoe Regular Shoe Right Footwear Regular Shoe Regular Shoe Pain Scale: 0-10 Numeric Is Patient Pain Free? Yes Yes Yes 02/04/23 09:16 - Today's Visit Information Type of service Follow-up Visit (Physician/APPLICATIONS SPECIALIST ) Arrival Mode Ambulatory Transfer Assistance None Accompanied by Patient Identification Verified (Name & Yes ) Patient Requires Transmission-Based No Precautions Safety Precautions Vital Signs Temperature (97.8 F-99.1 F) 97.7 F L Temperature Source Temporal Pulse Rate (60-100) 74 Pulse Location Monitor Respiratory Rate (12-18) 18 Respiratory rate source Observation Oxygen Delivery Method Blood Pressure (90/60-120/80) 125/70 H Blood Pressure Mean (mm Hg) 88 Source Monitor Position Semi-Fowlers Blood Pressure Location Left Arm History Since Last Visit- (Skip if this is Patient's initial visit) Have you changed medications since your No last visit? Any new allergies or adverse reactions No Had a fall/change in ADL's that may No increase risk of falls Signs or symptoms of abuse and/or No neglect since last visit Have you been in the hospital since your No last visit? Has dressing in place as prescribed Yes Has compression in place as prescribed Yes Has offloadiing in place as prescribed No Experienced any changes in pain level or No management Left Footwear Right Footwear Pain Scale: 0-10 Numeric Is Patient Pain Free? Yes - Nurse 1 - General Ulcer Measurement Start: 01/14/23 10:12 Freq: Status: Active Protocol: Activity Type Activity Date Activity User E-sign Co-sign Detail Recorded Client Recorded Date Recorded By Document 01/14/23 10:12 MW Desktop 01/14/23 10:25 MW Document 01/21/23 10:02 DL [id number] 01/21/23 10:12 DL Document 01/28/23 09:48 RB [id number] 01/28/23 10:01 RB Document 02/04/23 09:16 RB [id number] 02/04/23 09:26 RB 01/14/23 01/21/23 01/28/23 10:12 10:02 09:48 Wound Center Nurse 1 #19 Left Lateral LE cluster -Combined with other wound No No -Current Size (cm) - Length 1.1 1.6 1.4 -Current Size (cm) - Width 0.9 1.3 1.3 -Current Size (cm) - Depth 0.1 0.1 0.1 -Total Square Cm 0.99 2.08 1.82 -Photo Taken No No Yes -Epithelialization None Present -Tunneling No No -Undermining/Tunneling No No -Circular Undermining No No -Exudate Amt Small Medium Medium -Exudate Type Serosanguineous Serosanguineous Serosanguineous -Wound Margin Flat & Intact Distinct, Distinct, Outline Outline Attached Attached -Granulation Amt Large (67-100%) Large (67-100%) Medium (34-66%) -Granulation Quality Lingle Hyper- Lingle granulation,Red -Slough/Fibrin Yes Yes -Necrosis Amt Small (1-33%) Small (1-33%) Small (1-33%) -Necrotic Tissue Type Adherent Slough Adherent Slough Adherent Slough -Structure Exposed N/A N/A N/A -Texture (Marie-wound Skin Appearance) Assessed, Scarring Assessed, Localized Edema Localized Edema ,Scarring -Moisture (Marie-wound Skin Appearance) Assessed No Abnormality Assessed -Color (Marie-wound Skin Appearance) Assessed, Hemosiderin Assessed Hemosiderin Staining Staining,Rubor -Temperature (Marie-wound Skin No Abnormality No Abnormality No Abnormality Appearance) (Pt Warm) (Pt Warm) (Pt Warm) -Tenderness on Palpation (Marie-wound No No No Skin Appearance) -Ulcer Cleansing Rinsed/ Soap and Water Wound Cleanser Irrigated with Saline -Foul Odor after Cleansing No No No -Anesthetic Used 5% Lidocaine 5% Lidocaine 5% Lidocaine Gel Gel Gel #18 Left medial LE cluster -Combined with other wound No No -Current Size (cm) - Length 4.5 4.5 4.4 -Current Size (cm) - Width 8.0 8 8.7 -Current Size (cm) - Depth 0.1 0.1 0.1 -Total Square Cm 36.00 36.0 38.28 -Photo Taken No No Yes -Epithelialization None Present -Tunneling No No -Undermining/Tunneling No No -Circular Undermining No No -Exudate Amt Small Medium Medium -Exudate Type Serosanguineous Serosanguineous Serosanguineous -Wound Margin Flat & Intact Distinct, Distinct, Outline Outline Attached Attached -Granulation Amt Large (67-100%) Large (67-100%) Medium (34-66%) -Granulation Quality Lingle Red Lingle -Slough/Fibrin Yes Yes -Necrosis Amt Small (1-33%) Small (1-33%) Medium (34-66%) -Necrotic Tissue Type Adherent Slough Adherent Slough Adherent Slough -Structure Exposed N/A N/A N/A -Texture (Marie-wound Skin Appearance) Assessed, Scarring Assessed, Localized Edema Localized Edema ,Scarring -Moisture (Marie-wound Skin Appearance) Assessed No Abnormality Assessed -Color (Marie-wound Skin Appearance) No Abnormality Hemosiderin Assessed Staining -Temperature (Marie-wound Skin No Abnormality No Abnormality No Abnormality Appearance) (Pt Warm) (Pt Warm) (Pt Warm) -Tenderness on Palpation (Marie-wound No No No Skin Appearance) -Ulcer Cleansing Rinsed/ Soap and Water Wound Cleanser Irrigated with Saline -Foul Odor after Cleansing No No No -Anesthetic Used 5% Lidocaine 5% Lidocaine 5% Lidocaine Gel Gel Gel Lower Limb Edema Present Yes Yes Right Calf (cm) 45.0 43.6 Right Ankle (cm) 29.0 29.4 Left Calf (cm) 44.5 44.5 43.5 Left Ankle (cm) 29.0 29.5 31 02/04/23 09:16 Wound Center Nurse 1 #19 Left Lateral LE cluster -Combined with other wound No -Current Size (cm) - Length 1 -Current Size (cm) - Width 1.1 -Current Size (cm) - Depth 0.1 -Total Square Cm 1.1 -Photo Taken Yes -Epithelialization -Tunneling No -Undermining/Tunneling No -Circular Undermining No -Exudate Amt Medium -Exudate Type Serosanguineous -Wound Margin Distinct, Outline Attached -Granulation Amt Medium (34-66%) -Granulation Quality Lingle -Slough/Fibrin Yes -Necrosis Amt Medium (34-66%) -Necrotic Tissue Type Adherent Slough -Structure Exposed N/A -Texture (Marie-wound Skin Appearance) Assessed -Moisture (Marie-wound Skin Appearance) Assessed -Color (Marie-wound Skin Appearance) Assessed -Temperature (Marie-wound Skin No Abnormality Appearance) (Pt Warm) -Tenderness on Palpation (Marie-wound No Skin Appearance) -Ulcer Cleansing Wound Cleanser -Foul Odor after Cleansing No -Anesthetic Used 5% Lidocaine Gel #18 Left medial LE cluster -Combined with other wound No -Current Size (cm) - Length 5 -Current Size (cm) - Width 9 -Current Size (cm) - Depth 0.1 -Total Square Cm 45 -Photo Taken -Epithelialization -Tunneling No -Undermining/Tunneling No -Circular Undermining No -Exudate Amt Medium -Exudate Type Serosanguineous -Wound Margin Distinct, Outline Attached -Granulation Amt Medium (34-66%) -Granulation Quality Lingle -Slough/Fibrin Yes -Necrosis Amt Medium (34-66%) -Necrotic Tissue Type Adherent Slough -Structure Exposed N/A -Texture (Marie-wound Skin Appearance) Assessed -Moisture (Marie-wound Skin Appearance) Assessed -Color (Marie-wound Skin Appearance) Assessed -Temperature (Marie-wound Skin No Abnormality Appearance) (Pt Warm) -Tenderness on Palpation (Marie-wound No Skin Appearance) -Ulcer Cleansing Wound Cleanser -Foul Odor after Cleansing No -Anesthetic Used 5% Lidocaine Gel Lower Limb Edema Present Yes Right Calf (cm) 47 Right Ankle (cm) 29 Left Calf (cm) 46 Left Ankle (cm) 29 WC - Nurse 2 - General Ulcer CM Notes Start: 01/14/23 10:12 Freq: Status: Active Protocol: Activity Type Activity Date Activity User E-sign Co-sign Detail Recorded Client Recorded Date Recorded By Document 01/14/23 10:25 MW Desktop 01/14/23 10:42 MW Document 01/21/23 10:26 MW [id number] 01/21/23 10:45 MW Edit Result 01/21/23 10:26 MW (1) [id number] 01/24/23 07:06 PL Document 01/28/23 10:14 MW [id number] 01/28/23 10:29 MW Document 02/04/23 09:43 MW Desktop 02/04/23 09:57 MW (1) #19 Left Lateral LE cluster - Debridement, SubQ, ea addt'l 20sq cm 2 => 3 or part thereof 01/14/23 01/21/23 01/28/23 10:25 10:26 10:14 Wound Center Nurse 2 #19 Left Lateral LE cluster -Time 10:25 10:28 10:14 -Correct Patient Yes Yes Yes -Correct Side, Site, Position Yes Yes Yes -Correct Procedure Yes Yes Yes -Procedure Performed Yes Yes Yes -Type of Procedure Debridement Debridement Debridement -Clinical Debridement Subcutaneous Subcutaneous Subcutaneous -Tissue Removed Subcutaneous Subcutaneous Subcutaneous -Post Debridement (cm) - Length 1.2 1.4 1.3 -Post Debridement (cm) - Width 0.8 1.4 1.3 -Post Debridement (cm) - Depth 0.1 0.1 0.1 -Total Square (Post) (cm) 0.96 1.96 1.69 -Area of Debridement (cm) - Length 1.2 1.4 1.3 -Area of Debridement (cm) - Width 0.8 1.4 1.3 -Total Square (Area) (cm) 0.96 1.96 1.69 -Tunneling No No No -Undermining/Tunneling No No No -Circular Undermining No No No -Wound/Ulcer Outcome Not Healed Not Healed Not Healed -Ulcer Cleansing Rinsed/ Rinsed/ Rinsed/ Irrigated with Irrigated with Irrigated with Saline Saline Saline -Foul Odor after Cleansing No No No -Bioengineered Tissue No No No -Bleeding Controlled with Pressure Pressure Pressure -Treatment Response Procedure Procedure Procedure Tolerated Well Tolerated Well Tolerated Well -Offloading No No No -Debridement - Subq, 1st 20sq cm Yes Yes Yes -Debridement, SubQ, ea addt'l 20sq cm 1 3 1 or part thereof #18 Left medial LE cluster -Time 10:26 10:30 10:14 -Correct Patient Yes Yes Yes -Correct Side, Site, Position Yes Yes Yes -Correct Procedure Yes Yes Yes -Procedure Performed Yes Yes Yes -Type of Procedure Debridement Debridement Debridement -Clinical Debridement Subcutaneous Subcutaneous Subcutaneous -Tissue Removed Subcutaneous Subcutaneous Subcutaneous -Post Debridement (cm) - Length 4.2 5.0 4.5 -Post Debridement (cm) - Width 7.5 8.0 7.8 -Post Debridement (cm) - Depth 0.2 0.2 0.2 -Total Square (Post) (cm) 31.50 40.00 35.10 -Area of Debridement (cm) - Length 4.2 5.0 4.5 -Area of Debridement (cm) - Width 7.5 8.0 7.8 -Total Square (Area) (cm) 31.50 40.00 35.10 -Tunneling No No No -Undermining/Tunneling No No No -Circular Undermining No No No -Wound/Ulcer Outcome Not Healed Not Healed Not Healed -Ulcer Cleansing Rinsed/ Rinsed/ Rinsed/ Irrigated with Irrigated with Irrigated with Saline Saline Saline -Foul Odor after Cleansing No No No -Bioengineered Tissue No No No -Bleeding Controlled with Pressure Pressure Pressure -Treatment Response Procedure Procedure Procedure Tolerated Well Tolerated Well Tolerated Well -Offloading No No No -Debridement - Subq, 1st 20sq cm No No No Pain Scale: 0-10 Numeric Is Patient Pain Free? Yes Yes Yes 02/04/23 09:43 Wound Center Nurse 2 #19 Left Lateral LE cluster -Time 09:44 -Correct Patient Yes -Correct Side, Site, Position Yes -Correct Procedure Yes -Procedure Performed Yes -Type of Procedure Debridement -Clinical Debridement Subcutaneous -Tissue Removed Subcutaneous -Post Debridement (cm) - Length 1.3 -Post Debridement (cm) - Width 1.1 -Post Debridement (cm) - Depth 0.1 -Total Square (Post) (cm) 1.43 -Area of Debridement (cm) - Length 1.3 -Area of Debridement (cm) - Width 1.1 -Total Square (Area) (cm) 1.43 -Tunneling No -Undermining/Tunneling No -Circular Undermining No -Wound/Ulcer Outcome Not Healed -Ulcer Cleansing Rinsed/ Irrigated with Saline -Foul Odor after Cleansing No -Bioengineered Tissue No -Bleeding Controlled with Pressure -Treatment Response Procedure Tolerated Well -Offloading No -Debridement - Subq, 1st 20sq cm Yes -Debridement, SubQ, ea addt'l 20sq cm or part thereof #18 Left medial LE cluster -Time 09:44 -Correct Patient Yes -Correct Side, Site, Position Yes -Correct Procedure Yes -Procedure Performed Yes -Type of Procedure Debridement -Clinical Debridement Subcutaneous -Tissue Removed Subcutaneous -Post Debridement (cm) - Length 5.0 -Post Debridement (cm) - Width 7.9 -Post Debridement (cm) - Depth 0.2 -Total Square (Post) (cm) 39.50 -Area of Debridement (cm) - Length 5.0 -Area of Debridement (cm) - Width 7.9 -Total Square (Area) (cm) 39.50 -Tunneling No -Undermining/Tunneling No -Circular Undermining No -Wound/Ulcer Outcome Not Healed -Ulcer Cleansing Rinsed/ Irrigated with Saline -Foul Odor after Cleansing No -Bioengineered Tissue No -Bleeding Controlled with Pressure -Treatment Response Procedure Tolerated Well -Offloading No -Debridement - Subq, 1st 20sq cm No Pain Scale: 0-10 Numeric Is Patient Pain Free? Yes WC - Nurse 3 - General Ulcer D/C NN Start: 01/14/23 10:12 Freq: Status: Active Protocol: Activity Type Activity Date Activity User E-sign Co-sign Detail Recorded Client Recorded Date Recorded By Document 01/14/23 10:49 MW Desktop 01/14/23 10:51 MW Document 01/21/23 10:54 DL [id number] 01/21/23 10:56 DL Document 02/04/23 10:23 RB [id number] 02/04/23 10:25 RB 01/14/23 01/21/23 02/04/23 10:49 10:54 10:23 Wound Care Center Nurse 3 #19 Left Lateral LE cluster -Ulcer Cleansing Rinsed/ Rinsed/ Irrigated with Irrigated with Saline Saline -Foul Odor after Cleansing No No -Negative Pressure Wound Therapy N/A -Primary Dressing Applied Aquacel Extra Aquacel Extra -Other Dressing AQUACEL EXTRA -Primary Dressing Covered/Secured with Dry Gauze & Dry Gauze & Dry Gauze,Dry Roll Gauze, Roll Gauze, Gauze & Roll Secured with Secured with Gauze,Secured Tape Tape with Tape -Other Covering ABD PAD ABD -Aquacel Extra 1 1 #18 Left medial LE cluster -Ulcer Cleansing Rinsed/ Rinsed/ Irrigated with Irrigated with Saline Saline -Foul Odor after Cleansing No No -Negative Pressure Wound Therapy N/A -Other Dressing AQUACEL EXTRA aquacel ex AQUACEL EXTRA, ABD -Primary Dressing Covered/Secured with Dry Gauze & Dry Gauze & Dry Gauze & Roll Gauze, Roll Gauze, Roll Gauze, Secured with Secured with Secured with Tape Tape Tape -Other Covering ABD PAD Right -Lotion applied to leg before No compression wrap -Compression Wrap Kishore Wrap -Tubular Bandage Single Layer Single Layer -Size of Tubigrip Used Size E Size E -Size E ($) 1 1 Left -Lotion applied to leg before No compression wrap -Compression Wrap Kishore Wrap -Tubular Bandage Single Layer Single Layer -Size of Tubigrip Used Size E Size E -Size E ($) 1 1 Treatment Response Procedure Procedure Procedure Tolerated Well Tolerated Well Tolerated Well Pain Scale: 0-10 Numeric Is Patient Pain Free? Yes Yes Yes Teaching: Wound Center Dressing Your Wound -Person Taught Patient -Teaching Method Discussion, Demonstration -Response to teaching Verbalize understanding WC - Visit Discharge Discharge Condition Stable Stable Stable Ambulatory Status Ambulatory, Ambulatory Ambulatory, Walker Walker Transportation Private Auto Private Auto Accompanied by SHANAE Medication Reconcilliation completed & No No provided to patient/care provider Clinical Summary of Care Provided Yes Yes Facility Type Home Health Orders Sent Yes Additional Wound Wound debrided: left medial LE cluster Laterality: Left Type of Debridement: Excisional debridement Anesthesia Used: 4% Lidocaine Solution and 5% Lidocaine Gel Depth: Down to and including healthy tissue and in the subcutaneous layer Percentage of wound debrided: 100 Instrument Used: 5mm curette Tissue Removed: yellow slough, devitalized tissue Severity: Fat Layer Exposed Amount of bleeding with debridement: Mild Bleeding Controlled with: Compression and gauze Patient tolerated procedure: Patient tolerated procedure well Assessment/Plan Assessment/Plan (1) Ulcer of right lower extremity with fat layer exposed: CODE(S): L97.912 - Non-pressure chronic ulcer of unspecified part of rightlower leg with fat layer exposed (2) Ulcer of left lower extremity with fat layer exposed: CODE(S): L97.922 - Non-pressure chronic ulcer of unspecified part of left lower leg with fat layer exposed (3) Venous insufficiency: CODE(S): I87.2 - Venous insufficiency (chronic) (peripheral) (4) Edema: CODE(S): R60.9 - Edema, unspecified QUALIFIERS: Edema type: unspecified Qualified Code(s): R60.9 - Edema, unspecified (5) History of CVA (cerebrovascular accident): CODE(S): Z86.73 - Personal history of transient ischemic attack (TIA), andcerebral infarction without residual deficits (6) Venous ulcer of left lower extremity with varicose veins: CODE(S): I83.029 - Varicose veins of left lower extremity with ulcer of unspecified site (7) Venous ulcer of both lower extremities with varicose veins: CODE(S): I83.019 - Varicose veins of right lower extremity with ulcer of unspecified site; I83.029 - Varicose veins of left lower extremity with ulcer ofunspecified site (8) Venous ulcers of both lower extremities: CODE(S): I87.2 - Venous insufficiency (chronic) (peripheral) (9) Lymphedema: CODE(S): I89.0 - Lymphedema, not elsewhere classified PLAN: Plan Debridement performed today in clinic as annotated above. At home wound-care instructions: Apply Aquacel Extra to ulcers, Cover with ABD and wrap with gauze and use compression with tubigrips and continue lasix 2 tabsBID. Off-loading: The patient was instructed to avoid pressure and friction on the affected areas. Reposition every 2 hours at minimum. Avoid prolonged standing and/or dangling of legs. When seated, feet should be elevated at chest level. Frequent ambulation is encouraged. Encouraged lymphedema pump use. Diet: Patient encouraged to increase protein intake while taking caution to avoid high carbohydrate and/or sugar intake. Labs/cultures/imaging: Culture taken today due to change in drainage color. Willtreat based on results. Follow-up: Return in 1 week for wound care follow up. Return sooner or report tothe emergency room should symptoms worsen, or new symptoms arise. Note: [employer] speech recognition hair tinter software was used to create portions of this document. Sound-alike and misspelled words, as well as other hair tinter errors may be contained in the documentation. 02/04/23 1139 <Electronically signed by Patricia Garcia DO> Cosigner Signature (if applicable): CC: ~ Signed [facility] Work Phone: [phone]) 692-860804-21-[address] Garcia [facility] January 28, 2023 11:10am Note Date/Time January 28, 2023 11: 10am [facility] [address] [place] [address] Progress Note - Wound Care 01/28/23 1106 MR#: [id number] Acct: [id number] Name: ESTEBAN URBINA Rep #:[id number] : 1955 67 From: Patricia Garcia DO PCP: Dr. Patricia Garcia DO Status:REG RCR Location: History of Present Illness Date of Service: 01/28/23 Chief Complaint: venous ulcers of bilateral lower extremities History of Wound: Mauricio is a 67 yo gentleman who is here today for evaluation of ulcers to to his bilateral lower legs. He has been treated multiple times in thepa at the wound healing center for similar ulcers. The left LE ulcer started after he developed increased swelling and blisters of left leg in October and the right leg started sometime at the end of October. He was seen at PCP's office a culture was taken and it was resistant to several antibiotics. He was treated initially with Levaquin but had myalgias and then was treated with doxycycline which he finished 2 days ago. He denies improvementand is having swelling to his left calf and thigh. He has been having swelling to both lower extremities for many years and it has worsened over the last few months. He has not been compliant with compression. He has had increased pain especially in the left leg. He has clear yellow drainage and redness without odor or warmth. He is anti-coagulated on coumadin. He has been washing with Dial soap and witch ifrah. He had been using Collagen at times and using Calcium Alginate and covering with ABD pads during October. He was treated with 3M compression and Aquacel Ag. He was referred to the wound center for ongoing treatment. His ulcers have moderate to heavy drainage. He was recently hospitalized for cellulitis and edema for the last 10 days. He was in the hospital from 11/30/22 until 12/09/22 for treatment of cellulitis and edema. He underwent treatment with Vancomycin and IV lasix and compression. Discharged on 12/09/22 and is currently in the Skilled section of [facility]. He returned to his assisted living apartment on Tuesday12/21/22. Subjective Subjective He tolerated treatment this week with Aquacel Extra and ABDs andtubigrips. His ulcers and edema are slightly improved this week. he did report seeing greenish drainage on ABD when he changed dressing this morning. Denies fever, chills, increased pain or increased drainage. Objective Data Objective Data Vital Signs: Vital Signs Temp Pulse Resp BP O2 Del Method 97 F L 75 18 122/71 H Room Air 01/28/23 09:48 01/28/23 09:48 01/28/23 09:48 01/28/23 09:48 01/14/23 10:12 Oxygen Delivery Method Room Air Physical Exam Const alert, oriented x3 and no apparent distress General Appearance: cooperative and comfortable HEENT normocephalic and head/scalp atraumatic Lymph Lymphatic: lymphedema moderate Resp normal respiratory effort Effort and Inspection: able to speak in complete sentences Cardio regular rate and regular rhythm Extremity General Extremity: edema bilateral lower extremity Details: severe Skin Wounds: wounds noted Wound Narrative: as in clinical panel Psych mental status grossly normal, thought process normal, cooperative and affect normal Debridement Note Debridement Note Wound debrided: Left lateral LE cluster Laterality: Left Type of Debridement: Excisional debridement Anesthesia Used: 4% Lidocaine Solution Depth: Down to and including healthy tissue and in the subcutaneous layer Percentage of wound debrided: 100 Instrument Used: 5mm curette Tissue Removed: Yellow slough, devitalized tissue Severity: Fat Layer Exposed Amount of bleeding with debridement: Mild Bleeding Controlled with: Compression and gauze Patient tolerated procedure: Patient tolerated procedure well Post-Debridement Measurements and Additional Note: Post-Debridement Measurements/Treatment WC - Nurse 1 - General Ulcer Assessment Start: 01/14/23 10:12 Freq: Status: Active Protocol: [email or web address] Activity Type Activity Date Activity User E-sign Co-sign Detail Recorded Client Recorded Date Recorded By Document 01/14/23 10:12 MW Desktop 01/14/23 10:25 MW Document 01/21/23 10:02 DL [id number] 01/21/23 10:12 DL Document 01/28/23 09:48 RB [id number] 01/28/23 10:01 RB 01/14/23 01/21/23 01/28/23 10:12 10:02 09:48 - Today's Visit Information Type of service Follow-up Visit Follow-up Visit Follow-up Visit (Physician/APPLICATIONS SPECIALIST (Physician/APPLICATIONS SPECIALIST (Physician/APPLICATIONS SPECIALIST ) ) ) Arrival Mode Ambulatory, Ambulatory, Ambulatory, Walker Walker Walker Transfer Assistance None None None Accompanied by SELF Patient Identification Verified (Name & Yes Yes Yes ) Patient Requires Transmission-Based No No No Precautions Safety Precautions Fall Prevention Vital Signs Temperature (97.8 F-99.1 F) 97.0 F L 97 F L 97 F L Temperature Source Temporal Temporal Temporal Pulse Rate (60-100) 62 75 75 Pulse Location Monitor Monitor Monitor Respiratory Rate (12-18) 18 20 H 18 Respiratory rate source Observation Observation Observation Oxygen Delivery Method Room Air Blood Pressure (90/60-120/80) 139/85 H 116/63 122/71 H Blood Pressure Mean (mm Hg) 103 80 88 Source Monitor Monitor Monitor Position Sitting Semi-Fowlers Blood Pressure Location Right Arm Left Arm History Since Last Visit- (Skip if this is Patient's initial visit) Have you changed medications since your No No No last visit? Any new allergies or adverse reactions No No No Had a fall/change in ADL's that may No No No increase risk of falls Signs or symptoms of abuse and/or No No No neglect since last visit Have you been in the hospital since your No No No last visit? Has dressing in place as prescribed Yes Yes Yes Has compression in place as prescribed Yes Yes Yes Has offloadiing in place as prescribed N/A N/A No Experienced any changes in pain level or No No No management Left Footwear Regular Shoe Regular Shoe Right Footwear Regular Shoe Regular Shoe Pain Scale: 0-10 Numeric Is Patient Pain Free? Yes Yes Yes - Nurse 1 - General Ulcer Measurement Start: 01/14/23 10:12 Freq: Status: Active Protocol: Activity Type Activity Date Activity User E-sign Co-sign Detail Recorded Client Recorded Date Recorded By Document 01/14/23 10:12 MW Desktop 01/14/23 10:25 MW Document 01/21/23 10:02 DL [id number] 01/21/23 10:12 DL Document 01/28/23 09:48 RB [id number] 01/28/23 10:01 RB 01/14/23 01/21/23 01/28/23 10:12 10:02 09:48 Wound Center Nurse 1 #19 Left Lateral LE cluster -Combined with other wound No No -Current Size (cm) - Length 1.1 1.6 1.4 -Current Size (cm) - Width 0.9 1.3 1.3 -Current Size (cm) - Depth 0.1 0.1 0.1 -Total Square Cm 0.99 2.08 1.82 -Photo Taken No No Yes -Epithelialization None Present -Tunneling No No -Undermining/Tunneling No No -Circular Undermining No No -Exudate Amt Small Medium Medium -Exudate Type Serosanguineous Serosanguineous Serosanguineous -Wound Margin Flat & Intact Distinct, Distinct, Outline Outline Attached Attached -Granulation Amt Large (67-100%) Large (67-100%) Medium (34-66%) -Granulation Quality Lingle Hyper- Lingle granulation,Red -Slough/Fibrin Yes Yes -Necrosis Amt Small (1-33%) Small (1-33%) Small (1-33%) -Necrotic Tissue Type Adherent Slough Adherent Slough Adherent Slough -Structure Exposed N/A N/A N/A -Texture (Marie-wound Skin Appearance) Assessed, Scarring Assessed, Localized Edema Localized Edema ,Scarring -Moisture (Marie-wound Skin Appearance) Assessed No Abnormality Assessed -Color (Marie-wound Skin Appearance) Assessed, Hemosiderin Assessed Hemosiderin Staining Staining,Rubor -Temperature (Marie-wound Skin No Abnormality No Abnormality No Abnormality Appearance) (Pt Warm) (Pt Warm) (Pt Warm) -Tenderness on Palpation (Marie-wound No No No Skin Appearance) -Ulcer Cleansing Rinsed/ Soap and Water Wound Cleanser Irrigated with Saline -Foul Odor after Cleansing No No No -Anesthetic Used 5% Lidocaine 5% Lidocaine 5% Lidocaine Gel Gel Gel #18 Left medial LE cluster -Combined with other wound No No -Current Size (cm) - Length 4.5 4.5 4.4 -Current Size (cm) - Width 8.0 8 8.7 -Current Size (cm) - Depth 0.1 0.1 0.1 -Total Square Cm 36.00 36.0 38.28 -Photo Taken No No Yes -Epithelialization None Present -Tunneling No No -Undermining/Tunneling No No -Circular Undermining No No -Exudate Amt Small Medium Medium -Exudate Type Serosanguineous Serosanguineous Serosanguineous -Wound Margin Flat & Intact Distinct, Distinct, Outline Outline Attached Attached -Granulation Amt Large (67-100%) Large (67-100%) Medium (34-66%) -Granulation Quality Lingle Red Lingle -Slough/Fibrin Yes Yes -Necrosis Amt Small (1-33%) Small (1-33%) Medium (34-66%) -Necrotic Tissue Type Adherent Slough Adherent Slough Adherent Slough -Structure Exposed N/A N/A N/A -Texture (Marie-wound Skin Appearance) Assessed, Scarring Assessed, Localized Edema Localized Edema ,Scarring -Moisture (Marie-wound Skin Appearance) Assessed No Abnormality Assessed -Color (Marie-wound Skin Appearance) No Abnormality Hemosiderin Assessed Staining -Temperature (Marie-wound Skin No Abnormality No Abnormality No Abnormality Appearance) (Pt Warm) (Pt Warm) (Pt Warm) -Tenderness on Palpation (Marie-wound No No No Skin Appearance) -Ulcer Cleansing Rinsed/ Soap and Water Wound Cleanser Irrigated with Saline -Foul Odor after Cleansing No No No -Anesthetic Used 5% Lidocaine 5% Lidocaine 5% Lidocaine Gel Gel Gel Lower Limb Edema Present Yes Yes Right Calf (cm) 45.0 43.6 Right Ankle (cm) 29.0 29.4 Left Calf (cm) 44.5 44.5 43.5 Left Ankle (cm) 29.0 29.5 31 WC - Nurse 2 - General Ulcer CM Notes Start: 01/14/23 10:12 Freq: Status: Active Protocol: Activity Type Activity Date Activity User E-sign Co-sign Detail Recorded Client Recorded Date Recorded By Document 01/14/23 10:25 MW Desktop 01/14/23 10:42 MW Document 01/21/23 10:26 MW [id number] 01/21/23 10:45 MW Edit Result 01/21/23 10:26 MW (1) [id number] 01/24/23 07:06 PL Document 01/28/23 10:14 MW [id number] 01/28/23 10:29 MW (1) #19 Left Lateral LE cluster - Debridement, SubQ, ea addt'l 20sq cm 2 => 3 or part thereof 01/14/23 01/21/23 01/28/23 10:25 10:26 10:14 Wound Center Nurse 2 #19 Left Lateral LE cluster -Time 10: 10:28 10:14 -Correct Patient Yes Yes Yes -Correct Side, Site, Position Yes Yes Yes -Correct Procedure Yes Yes Yes -Procedure Performed Yes Yes Yes -Type of Procedure Debridement Debridement Debridement -Clinical Debridement Subcutaneous Subcutaneous Subcutaneous -Tissue Removed Subcutaneous Subcutaneous Subcutaneous -Post Debridement (cm) - Length 1.2 1.4 1.3 -Post Debridement (cm) - Width 0.8 1.4 1.3 -Post Debridement (cm) - Depth 0.1 0.1 0.1 -Total Square (Post) (cm) 0.96 1.96 1.69 -Area of Debridement (cm) - Length 1.2 1.4 1.3 -Area of Debridement (cm) - Width 0.8 1.4 1.3 -Total Square (Area) (cm) 0.96 1.96 1.69 -Tunneling No No No -Undermining/Tunneling No No No -Circular Undermining No No No -Wound/Ulcer Outcome Not Healed Not Healed Not Healed -Ulcer Cleansing Rinsed/ Rinsed/ Rinsed/ Irrigated with Irrigated with Irrigated with Saline Saline Saline -Foul Odor after Cleansing No No No -Bioengineered Tissue No No No -Bleeding Controlled with Pressure Pressure Pressure -Treatment Response Procedure Procedure Procedure Tolerated Well Tolerated Well Tolerated Well -Offloading No No No -Debridement - Subq, 1st 20sq cm Yes Yes Yes -Debridement, SubQ, ea addt'l 20sq cm 1 3 1 or part thereof #18 Left medial LE cluster -Time 10: 10:30 10:14 -Correct Patient Yes Yes Yes -Correct Side, Site, Position Yes Yes Yes -Correct Procedure Yes Yes Yes -Procedure Performed Yes Yes Yes -Type of Procedure Debridement Debridement Debridement -Clinical Debridement Subcutaneous Subcutaneous Subcutaneous -Tissue Removed Subcutaneous Subcutaneous Subcutaneous -Post Debridement (cm) - Length 4.2 5.0 4.5 -Post Debridement (cm) - Width 7.5 8.0 7.8 -Post Debridement (cm) - Depth 0.2 0.2 0.2 -Total Square (Post) (cm) 31.50 40.00 35.10 -Area of Debridement (cm) - Length 4.2 5.0 4.5 -Area of Debridement (cm) - Width 7.5 8.0 7.8 -Total Square (Area) (cm) 31.50 40.00 35.10 -Tunneling No No No -Undermining/Tunneling No No No -Circular Undermining No No No -Wound/Ulcer Outcome Not Healed Not Healed Not Healed -Ulcer Cleansing Rinsed/ Rinsed/ Rinsed/ Irrigated with Irrigated with Irrigated with Saline Saline Saline -Foul Odor after Cleansing No No No -Bioengineered Tissue No No No -Bleeding Controlled with Pressure Pressure Pressure -Treatment Response Procedure Procedure Procedure Tolerated Well Tolerated Well Tolerated Well -Offloading No No No -Debridement - Subq, 1st 20sq cm No No No Pain Scale: 0-10 Numeric Is Patient Pain Free? Yes Yes Yes WC - Nurse 3 - General Ulcer D/C NN Start: 01/14/23 10:12 Freq: Status: Active Protocol: Activity Type Activity Date Activity User E-sign Co-sign Detail Recorded Client Recorded Date Recorded By Document 01/14/23 10:49 MW Desktop 01/14/23 10:51 MW Document 01/21/23 10:54 DL [id number] 01/21/23 10:56 DL 01/14/23 01/21/23 10:49 10:54 Wound Care Center Nurse 3 #19 Left Lateral LE cluster -Ulcer Cleansing Rinsed/ Rinsed/ Irrigated with Irrigated with Saline Saline -Foul Odor after Cleansing No No -Negative Pressure Wound Therapy N/A -Primary Dressing Applied Aquacel Extra Aquacel Extra -Primary Dressing Covered/Secured with Dry Gauze & Dry Gauze & Roll Gauze, Roll Gauze, Secured with Secured with Tape Tape -Other Covering ABD PAD -Aquacel Extra 1 1 #18 Left medial LE cluster -Ulcer Cleansing Rinsed/ Rinsed/ Irrigated with Irrigated with Saline Saline -Foul Odor after Cleansing No No -Negative Pressure Wound Therapy N/A -Other Dressing AQUACEL EXTRA aquacel ex -Primary Dressing Covered/Secured with Dry Gauze & Dry Gauze & Roll Gauze, Roll Gauze, Secured with Secured with Tape Tape -Other Covering ABD PAD Right -Lotion applied to leg before No compression wrap -Compression Wrap Kishore Wrap -Tubular Bandage Single Layer -Size of Tubigrip Used Size E -Size E ($) 1 Left -Lotion applied to leg before No compression wrap -Compression Wrap Kishore Wrap -Tubular Bandage Single Layer -Size of Tubigrip Used Size E -Size E ($) 1 Treatment Response Procedure Procedure Tolerated Well Tolerated Well Pain Scale: 0-10 Numeric Is Patient Pain Free? Yes Yes Teaching: Wound Center Dressing Your Wound -Person Taught Patient -Teaching Method Discussion, Demonstration -Response to teaching Verbalize understanding WC - Visit Discharge Discharge Condition Stable Stable Ambulatory Status Ambulatory, Ambulatory Walker Transportation Private Auto Accompanied by SHANAE Medication Reconcilliation completed & No provided to patient/care provider Clinical Summary of Care Provided Yes Facility Type Home Health Orders Sent Yes Additional Wound Wound debrided: left medial LE cluster Laterality: Left Type of Debridement: Excisional debridement Anesthesia Used: 4% Lidocaine Solution and 5% Lidocaine Gel Depth: Down to and including healthy tissue and in the subcutaneous layer Percentage of wound debrided: 100 Instrument Used: 5mm curette Tissue Removed: yellow slough, devitalized tissue Severity: Fat Layer Exposed Amount of bleeding with debridement: Mild Bleeding Controlled with: Compression and gauze Patient tolerated procedure: Patient tolerated procedure well Assessment/Plan Assessment/Plan (1) Ulcer of right lower extremity with fat layer exposed: CODE(S): L97.912 - Non-pressure chronic ulcer of unspecified part of rightlower leg with fat layer exposed (2) Ulcer of left lower extremity with fat layer exposed: CODE(S): L97.922 - Non-pressure chronic ulcer of unspecified part of left lower leg with fat layer exposed (3) Venous insufficiency: CODE(S): I87.2 - Venous insufficiency (chronic) (peripheral) (4) Edema: CODE(S): R60.9 - Edema, unspecified QUALIFIERS: Edema type: unspecified Qualified Code(s): R60.9 - Edema, unspecified (5) History of CVA (cerebrovascular accident): CODE(S): Z86.73 - Personal history of transient ischemic attack (TIA), andcerebral infarction without residual deficits (6) Venous ulcer of left lower extremity with varicose veins: CODE(S): I83.029 - Varicose veins of left lower extremity with ulcer of unspecified site (7) Venous ulcer of both lower extremities with varicose veins: CODE(S): I83.019 - Varicose veins of right lower extremity with ulcer of unspecified site; I83.029 - Varicose veins of left lower extremity with ulcer ofunspecified site (8) Venous ulcers of both lower extremities: CODE(S): I87.2 - Venous insufficiency (chronic) (peripheral) (9) Lymphedema: CODE(S): I89.0 - Lymphedema, not elsewhere classified PLAN: Plan Debridement performed today in clinic as annotated above. At home wound-care instructions: Apply Aquacel Extra to ulcers, Cover with ABD and wrap with gauze and use compression with tubigrips and continue lasix 2 tabsBID. Off-loading: The patient was instructed to avoid pressure and friction on the affected areas. Reposition every 2 hours at minimum. Avoid prolonged standing and/or dangling of legs. When seated, feet should be elevated at chest level. Frequent ambulation is encouraged. Encouraged lymphedema pump use. Diet: Patient encouraged to increase protein intake while taking caution to avoid high carbohydrate and/or sugar intake. Labs/cultures/imaging: Culture taken today due to change in drainage color. Willtreat based on results. Follow-up: Return in 1 week for wound care follow up. Return sooner or report tothe emergency room should symptoms worsen, or new symptoms arise. Note: [employer] speech recognition hair tinter software was used to create portions of this document. Sound-alike and misspelled words, as well as other hair tinter errors may be contained in the documentation. 01/28/23 1110 <Electronically signed by Patricia Garcia DO> Cosigner Signature (if applicable): CC: ~ Signed [facility] Work Phone: 1(103) 973-316004-21-[address] Garcia [facility] January 28, 2023 9:27am Note Date/Time January 21, 2023 3:0 4pm [facility] [address] [place] [id number] Progress Note - Wound Care 01/21/23 1504 MR#: [id number] Acct: [id number] Name: ESTEBAN URBINA Rep #:[id number] : 1955 67 From: Patricia Garcia DO PCP: Dr. Patricia Garcia, DO Status:REG RCR Location: History of Present Illness Date of Service: 01/21/23 Chief Complaint: venous ulcers of bilateral lower extremities History of Wound: Mauricio is a 67 yo gentleman who is here today for evaluation of ulcers to to his bilateral lower legs. [facility]. The left LE ulcer started after he developed increased swelling and blisters of left leg in October and the right leg started sometime at the end of October. He was seen at PCP's office a culture was taken and it was resistant to several antibiotics. He was treated initially with Levaquin but had myalgias and then was treated with doxycycline which he finished 2 days ago. He denies improvementand is having swelling to his left calf and thigh. He has been having swelling to both lower extremities for many years and it has worsened over the last few months. He has not been compliant with compression. He has had increased pain especially in the left leg. He has clear yellow drainage and redness without odor or warmth. He is anti-coagulated on coumadin. He has been washing with Dial soap and witch ifrah. He had been using Collagen at times and using Calcium Alginate and covering with ABD pads during October. He was treated with 3M compression and Aquacel Ag. He was referred to the wound center for ongoing treatment. His ulcers have moderate to heavy drainage. He was recently hospitalized for cellulitis and edema for the last 10 days. He was in the hospital from 11/30/22 until 12/09/22 for treatment of cellulitis and edema. He underwent treatment with Vancomycin and IV lasix and compression. Discharged on 12/09/22 and is currently in the Skilled section of [facility]. He returned to his assisted living apartment on Tuesday12/21/22. Subjective Subjective He tolerated treatment this week with adaptic, Aquacel and gauze and KISHORE bandages. His ulcers and edema are slightly improved this week. Objective Data Objective Data Vital Signs: Vital Signs Temp Pulse Resp BP O2 Del Method 97 F L 75 20 H 116/63 Room Air 01/21/23 10:02 01/21/23 10:02 01/21/23 10:02 01/21/23 10:02 01/14/23 10:12 Oxygen Delivery Method Room Air Physical Exam Const alert, oriented x3 and no apparent distress General Appearance: cooperative and comfortable HEENT normocephalic and head/scalp atraumatic Lymph Lymphatic: lymphedema moderate Resp normal respiratory effort Effort and Inspection: able to speak in complete sentences Cardio regular rate and regular rhythm Extremity General Extremity: edema bilateral lower extremity Details: severe Skin Wounds: wounds noted Wound Narrative: as in clinical panel Psych mental status grossly normal, thought process normal, cooperative and affect normal Debridement Note Debridement Note Wound debrided: Left lateral LE cluster Laterality: Left Type of Debridement: Excisional debridement Anesthesia Used: 4% Lidocaine Solution Depth: Down to and including healthy tissue and in the subcutaneous layer Percentage of wound debrided: 100 Instrument Used: 5mm curette Tissue Removed: Yellow slough, devitalized tissue Severity: Fat Layer Exposed Amount of bleeding with debridement: Mild Bleeding Controlled with: Compression and gauze Patient tolerated procedure: Patient tolerated procedure well Post-Debridement Measurements and Additional Note: Post-Debridement Measurements/Treatment - Nurse 1 - General Ulcer Assessment Start: 01/14/23 10:12 Freq: Status: Active Protocol: ONDINA Activity Type Activity Date Activity User E-sign Co-sign Detail Recorded Client Recorded Date Recorded By Document 01/14/23 10:12 MW Desktop 01/14/23 10:25 MW Document 01/21/23 10:02 DL [id number] 01/21/23 10:12 DL 01/14/23 01/21/23 10:12 10:02 - Today's Visit Information Type of service Follow-up Visit Follow-up Visit (Physician/APPLICATIONS SPECIALIST (Physician/APPLICATIONS SPECIALIST ) ) Arrival Mode Ambulatory, Ambulatory, Walker Walker Transfer Assistance None None Accompanied by SELF Patient Identification Verified (Name & Yes Yes ) Patient Requires Transmission-Based No No Precautions Safety Precautions Fall Prevention Vital Signs Temperature (97.8 F-99.1 F) 97.0 F L 97 F L Temperature Source Temporal Temporal Pulse Rate (60-100) 62 75 Pulse Location Monitor Monitor Respiratory Rate (12-18) 18 20 H Respiratory rate source Observation Observation Oxygen Delivery Method Room Air Blood Pressure (90/60-120/80) 139/85 H 116/63 Blood Pressure Mean (mm Hg) 103 80 Source Monitor Monitor Position Sitting Blood Pressure Location Right Arm History Since Last Visit- (Skip if this is Patient's initial visit) Have you changed medications since your No No last visit? Any new allergies or adverse reactions No No Had a fall/change in ADL's that may No No increase risk of falls Signs or symptoms of abuse and/or No No neglect since last visit Have you been in the hospital since your No No last visit? Has dressing in place as prescribed Yes Yes Has compression in place as prescribed Yes Yes Has offloadiing in place as prescribed N/A N/A Experienced any changes in pain level or No No management Left Footwear Regular Shoe Regular Shoe Right Footwear Regular Shoe Regular Shoe Pain Scale: 0-10 Numeric Is Patient Pain Free? Yes Yes WC - Nurse 1 - General Ulcer Measurement Start: 01/14/23 10:12 Freq: Status: Active Protocol: Activity Type Activity Date Activity User E-sign Co-sign Detail Recorded Client Recorded Date Recorded By Document 01/14/23 10:12 MW Desktop 01/14/23 10:25 MW Document 01/21/23 10:02 DL [id number] 01/21/23 10:12 DL 01/14/23 01/21/23 10:12 10:02 Wound Center Nurse 1 #19 Left Lateral LE cluster -Combined with other wound No -Current Size (cm) - Length 1.1 1.6 -Current Size (cm) - Width 0.9 1.3 -Current Size (cm) - Depth 0.1 0.1 -Total Square Cm 0.99 2.08 -Photo Taken No No -Epithelialization None Present -Tunneling No -Undermining/Tunneling No -Circular Undermining No -Exudate Amt Small Medium -Exudate Type Serosanguineous Serosanguineous -Wound Margin Flat & Intact Distinct, Outline Attached -Granulation Amt Large (67-100%) Large (67-100%) -Granulation Quality Lingle Hyper- granulation,Red -Slough/Fibrin Yes -Necrosis Amt Small (1-33%) Small (1-33%) -Necrotic Tissue Type Adherent Slough Adherent Slough -Structure Exposed N/A N/A -Texture (Marie-wound Skin Appearance) Assessed, Scarring Localized Edema ,Scarring -Moisture (Marie-wound Skin Appearance) Assessed No Abnormality -Color (Marie-wound Skin Appearance) Assessed, Hemosiderin Hemosiderin Staining Staining,Rubor -Temperature (Marie-wound Skin No Abnormality No Abnormality Appearance) (Pt Warm) (Pt Warm) -Tenderness on Palpation (Marie-wound No No Skin Appearance) -Ulcer Cleansing Rinsed/ Soap and Water Irrigated with Saline -Foul Odor after Cleansing No No -Anesthetic Used 5% Lidocaine 5% Lidocaine Gel Gel #18 Left medial LE cluster -Combined with other wound No -Current Size (cm) - Length 4.5 4.5 -Current Size (cm) - Width 8.0 8 -Current Size (cm) - Depth 0.1 0.1 -Total Square Cm 36.00 36.0 -Photo Taken No No -Epithelialization None Present -Tunneling No -Undermining/Tunneling No -Circular Undermining No -Exudate Amt Small Medium -Exudate Type Serosanguineous Serosanguineous -Wound Margin Flat & Intact Distinct, Outline Attached -Granulation Amt Large (67-100%) Large (67-100%) -Granulation Quality Lingle Red -Slough/Fibrin Yes -Necrosis Amt Small (1-33%) Small (1-33%) -Necrotic Tissue Type Adherent Slough Adherent Slough -Structure Exposed N/A N/A -Texture (Marie-wound Skin Appearance) Assessed, Scarring Localized Edema ,Scarring -Moisture (Marie-wound Skin Appearance) Assessed No Abnormality -Color (Marie-wound Skin Appearance) No Abnormality Hemosiderin Staining -Temperature (Marie-wound Skin No Abnormality No Abnormality Appearance) (Pt Warm) (Pt Warm) -Tenderness on Palpation (Marie-wound No No Skin Appearance) -Ulcer Cleansing Rinsed/ Soap and Water Irrigated with Saline -Foul Odor after Cleansing No No -Anesthetic Used 5% Lidocaine 5% Lidocaine Gel Gel Lower Limb Edema Present Yes Right Calf (cm) 45.0 43.6 Right Ankle (cm) 29.0 29.4 Left Calf (cm) 44.5 44.5 Left Ankle (cm) 29.0 29.5 WC - Nurse 2 - General Ulcer CM Notes Start: 01/14/23 10:12 Freq: Status: Active Protocol: Activity Type Activity Date Activity User E-sign Co-sign Detail Recorded Client Recorded Date Recorded By Document 01/14/23 10:25 MW Desktop 01/14/23 10:42 MW Document 01/21/23 10:26 MW [id number] 01/21/23 10:45 MW 01/14/23 01/21/23 10:25 10:26 Wound Center Nurse 2 #19 Left Lateral LE cluster -Time 10:25 10:28 -Correct Patient Yes Yes -Correct Side, Site, Position Yes Yes -Correct Procedure Yes Yes -Procedure Performed Yes Yes -Type of Procedure Debridement Debridement -Clinical Debridement Subcutaneous Subcutaneous -Tissue Removed Subcutaneous Subcutaneous -Post Debridement (cm) - Length 1.2 1.4 -Post Debridement (cm) - Width 0.8 1.4 -Post Debridement (cm) - Depth 0.1 0.1 -Total Square (Post) (cm) 0.96 1.96 -Area of Debridement (cm) - Length 1.2 1.4 -Area of Debridement (cm) - Width 0.8 1.4 -Total Square (Area) (cm) 0.96 1.96 -Tunneling No No -Undermining/Tunneling No No -Circular Undermining No No -Wound/Ulcer Outcome Not Healed Not Healed -Ulcer Cleansing Rinsed/ Rinsed/ Irrigated with Irrigated with Saline Saline -Foul Odor after Cleansing No No -Bioengineered Tissue No No -Bleeding Controlled with Pressure Pressure -Treatment Response Procedure Procedure Tolerated Well Tolerated Well -Offloading No No -Debridement - Subq, 1st 20sq cm Yes Yes -Debridement, SubQ, ea addt'l 20sq cm 1 2 or part thereof #18 Left medial LE cluster -Time 10:26 10:30 -Correct Patient Yes Yes -Correct Side, Site, Position Yes Yes -Correct Procedure Yes Yes -Procedure Performed Yes Yes -Type of Procedure Debridement Debridement -Clinical Debridement Subcutaneous Subcutaneous -Tissue Removed Subcutaneous Subcutaneous -Post Debridement (cm) - Length 4.2 5.0 -Post Debridement (cm) - Width 7.5 8.0 -Post Debridement (cm) - Depth 0.2 0.2 -Total Square (Post) (cm) 31.50 40.00 -Area of Debridement (cm) - Length 4.2 5.0 -Area of Debridement (cm) - Width 7.5 8.0 -Total Square (Area) (cm) 31.50 40.00 -Tunneling No No -Undermining/Tunneling No No -Circular Undermining No No -Wound/Ulcer Outcome Not Healed Not Healed -Ulcer Cleansing Rinsed/ Rinsed/ Irrigated with Irrigated with Saline Saline -Foul Odor after Cleansing No No -Bioengineered Tissue No No -Bleeding Controlled with Pressure Pressure -Treatment Response Procedure Procedure Tolerated Well Tolerated Well -Offloading No No -Debridement - Subq, 1st 20sq cm No No Pain Scale: 0-10 Numeric Is Patient Pain Free? Yes Yes WC - Nurse 3 - General Ulcer D/C NN Start: 01/14/23 10:12 Freq: Status: Active Protocol: Activity Type Activity Date Activity User E-sign Co-sign Detail Recorded Client Recorded Date Recorded By Document 01/14/23 10:49 MW Desktop 01/14/23 10:51 MW Document 01/21/23 10:54 DL [id number] 01/21/23 10:56 DL 01/14/23 01/21/23 10:49 10:54 Wound Care Center Nurse 3 #19 Left Lateral LE cluster -Ulcer Cleansing Rinsed/ Rinsed/ Irrigated with Irrigated with Saline Saline -Foul Odor after Cleansing No No -Negative Pressure Wound Therapy N/A -Primary Dressing Applied Aquacel Extra Aquacel Extra -Primary Dressing Covered/Secured with Dry Gauze & Dry Gauze & Roll Gauze, Roll Gauze, Secured with Secured with Tape Tape -Other Covering ABD PAD -Aquacel Extra 1 1 #18 Left medial LE cluster -Ulcer Cleansing Rinsed/ Rinsed/ Irrigated with Irrigated with Saline Saline -Foul Odor after Cleansing No No -Negative Pressure Wound Therapy N/A -Other Dressing AQUACEL EXTRA aquacel ex -Primary Dressing Covered/Secured with Dry Gauze & Dry Gauze & Roll Gauze, Roll Gauze, Secured with Secured with Tape Tape -Other Covering ABD PAD Right -Lotion applied to leg before No compression wrap -Compression Wrap Kishore Wrap -Tubular Bandage Single Layer -Size of Tubigrip Used Size E -Size E ($) 1 Left -Lotion applied to leg before No compression wrap -Compression Wrap Kishore Wrap -Tubular Bandage Single Layer -Size of Tubigrip Used Size E -Size E ($) 1 Treatment Response Procedure Procedure Tolerated Well Tolerated Well Pain Scale: 0-10 Numeric Is Patient Pain Free? Yes Yes Teaching: Wound Center Dressing Your Wound -Person Taught Patient -Teaching Method Discussion, Demonstration -Response to teaching Verbalize understanding WC - Visit Discharge Discharge Condition Stable Stable Ambulatory Status Ambulatory, Ambulatory Walker Transportation Private Auto Accompanied by SHANAE Medication Reconcilliation completed & No provided to patient/care provider Clinical Summary of Care Provided Yes Facility Type Home Health Orders Sent Yes Additional Wound Wound debrided: left medial LE cluster Laterality: Left Type of Debridement: Excisional debridement Anesthesia Used: 4% Lidocaine Solution and 5% Lidocaine Gel Depth: Down to and including healthy tissue and in the subcutaneous layer Percentage of wound debrided: 100 Instrument Used: 5mm curette Tissue Removed: yellow slough, devitalized tissue Severity: Fat Layer Exposed Amount of bleeding with debridement: Mild Bleeding Controlled with: Compression and gauze Patient tolerated procedure: Patient tolerated procedure well Assessment/Plan Assessment/Plan (1) Ulcer of right lower extremity with fat layer exposed: CODE(S): L97.912 - Non-pressure chronic ulcer of unspecified part of rightlower leg with fat layer exposed (2) Ulcer of left lower extremity with fat layer exposed: CODE(S): L97.922 - Non-pressure chronic ulcer of unspecified part of left lower leg with fat layer exposed (3) Venous insufficiency: CODE(S): I87.2 - Venous insufficiency (chronic) (peripheral) (4) Edema: CODE(S): R60.9 - Edema, unspecified QUALIFIERS: Edema type: unspecified Qualified Code(s): R60.9 - Edema, unspecified (5) History of CVA (cerebrovascular accident): CODE(S): Z86.73 - Personal history of transient ischemic attack (TIA), andcerebral infarction without residual deficits (6) Venous ulcer of left lower extremity with varicose veins: CODE(S): I83.029 - Varicose veins of left lower extremity with ulcer of unspecified site (7) Venous ulcer of both lower extremities with varicose veins: CODE(S): I83.019 - Varicose veins of right lower extremity with ulcer of unspecified site; I83.029 - Varicose veins of left lower extremity with ulcer ofunspecified site (8) Venous ulcers of both lower extremities: CODE(S): I87.2 - Venous insufficiency (chronic) (peripheral) (9) Lymphedema: CODE(S): I89.0 - Lymphedema, not elsewhere classified PLAN: Plan Debridement performed today in clinic as annotated above. At home wound-care instructions: Apply Aquacel Extra to ulcers, compression withACE bandages and continue lasix 2 tabs BID. Off-loading: The patient was instructed to avoid pressure and friction on the affected areas. Reposition every 2 hours at minimum. Avoid prolonged standing and/or dangling of legs. When seated, feet should be elevated at chest level. Frequent ambulation is encouraged. Encouraged lymphedema pump use. Diet: Patient encouraged to increase protein intake while taking caution to avoid high carbohydrate and/or sugar intake. Labs/cultures/imaging: Follow-up: Return in 1 week for wound care follow up. Return sooner or report tothe emergency room should symptoms worsen, or new symptoms arise. Note: [employer] speech recognition hair tinter software was used to create portions of this document. Sound-alike and misspelled words, as well as other hair tinter errors may be contained in the documentation. 01/28/23926 <Electronically signed by Patricia Garcia DO> Cosigner Signature (if applicable): CC: ~ Signed [facility] Work Phone: 1(628) 218-197204-07-[address] Garcia [facility] January 14, 2023 2:42pm Note Date/Time January 14, 2023 2:42 pm [facility] [address] [place] [id number] Progress Note - Wound Care 01/14/23 1437 MR#: [id number] Acct: [id number] Name: ESTEBAN URBINA Rep #:[id number] : 1955 67 From: Patricia Garcia DO PCP: Dr. Patricia Garcia, Status:REG RCR Location: History of Present Illness Date of Service: 01/14/23 Chief Complaint: venous ulcers of bilateral lower extremities History of Wound: Mauricio is a 67 yo gentleman who is here today for evaluation of ulcers to to his bilateral lower legs. [facility]. The left LE ulcer started after he developed increased swelling and blisters of left leg in October and the right leg started sometime at the end of October. He was seen at PCP's office a culture was taken and it was resistant to several antibiotics. He was treated initially with Levaquin but had myalgias and then was treated with doxycycline which he finished 2 days ago. He denies improvementand is having swelling to his left calf and thigh. He has been having swelling to both lower extremities for many years and it has worsened over the last few months. He has not been compliant with compression. He has had increased pain especially in the left leg. He has clear yellow drainage and redness without odor or warmth. He is anti-coagulated on coumadin. He has been washing with Dial soap and witch ifrah. He had been using Collagen at times and using Calcium Alginate and covering with ABD pads during October. He was treated with 3M compression and Aquacel Ag. He was referred to the wound center for ongoing treatment. His ulcers have moderate to heavy drainage. He was recently hospitalized for cellulitis and edema for the last 10 days. He was in the hospital from 11/30/22 until 12/09/22 for treatment of cellulitis and edema. He underwent treatment with Vancomycin and IV lasix and compression. Discharged on 12/09/22 and is currently in the Skilled section of [facility]. He returned to his assisted living apartment on Tuesday12/21/22. Subjective Subjective He tolerated treatment this week with adaptic, Aquacel and gauze and KISHORE bandages. His ulcers and edema are improved this week. Ulcer of right LE is healed again this week. Objective Data Objective Data Vital Signs: Vital Signs Temp Pulse Resp BP O2 Del Method 97.0 F L 62 18 139/85 H Room Air 01/14/23 10:12 01/14/23 10:12 01/14/23 10:12 01/14/23 10:12 01/14/23 10:12 Oxygen Delivery Method Room Air Physical Exam Const alert, oriented x3 and no apparent distress General Appearance: cooperative and comfortable HEENT normocephalic and head/scalp atraumatic Lymph Lymphatic: lymphedema moderate Resp normal respiratory effort Effort and Inspection: able to speak in complete sentences Cardio regular rate and regular rhythm Extremity General Extremity: edema bilateral lower extremity Details: severe Skin Wounds: wounds noted Wound Narrative: as in clinical panel Psych mental status grossly normal, thought process normal, cooperative and affect normal Debridement Note Debridement Note Wound debrided: Left lateral LE cluster Laterality: Left Type of Debridement: Excisional debridement Anesthesia Used: 4% Lidocaine Solution Depth: Down to and including healthy tissue and in the subcutaneous layer Percentage of wound debrided: 100 Instrument Used: 5mm curette Tissue Removed: Yellow slough, devitalized tissue Severity: Fat Layer Exposed Amount of bleeding with debridement: Mild Bleeding Controlled with: Compression and gauze Patient tolerated procedure: Patient tolerated procedure well Post-Debridement Measurements and Additional Note: Post-Debridement Measurements/Treatment WC - Nurse 1 - General Ulcer Assessment Start: 01/14/23 10:12 Freq: Status: Active Protocol: ONDINA Activity Type Activity Date Activity User E-sign Co-sign Detail Recorded Client Recorded Date Recorded By Document 01/14/23 10:12 MW Desktop 01/14/23 10:25 MW 01/14/23 10:12 WC - Today's Visit Information Type of service Follow-up Visit (Physician/APPLICATIONS SPECIALIST ) Arrival Mode Ambulatory, Walker Transfer Assistance None Accompanied by SELF Patient Identification Verified (Name & Yes ) Patient Requires Transmission-Based No Precautions Safety Precautions Fall Prevention Vital Signs Temperature (97.8 F-99.1 F) 97.0 F L Temperature Source Temporal Pulse Rate (60-100) 62 Pulse Location Monitor Respiratory Rate (12-18) 18 Respiratory rate source Observation Oxygen Delivery Method Room Air Blood Pressure (90/60-120/80) 139/85 H Blood Pressure Mean (mm Hg) 103 Source Monitor Position Sitting Blood Pressure Location Right Arm History Since Last Visit- (Skip if this is Patient's initial visit) Have you changed medications since your No last visit? Any new allergies or adverse reactions No Had a fall/change in ADL's that may No increase risk of falls Signs or symptoms of abuse and/or No neglect since last visit Have you been in the hospital since your No last visit? Has dressing in place as prescribed Yes Has compression in place as prescribed Yes Has offloadiing in place as prescribed N/A Experienced any changes in pain level or No management Left Footwear Regular Shoe Right Footwear Regular Shoe Pain Scale: 0-10 Numeric Is Patient Pain Free? Yes DEBBIE - Nurse 1 - General Ulcer Measurement Start: 01/14/23 10:12 Freq: Status: Active Protocol: Activity Type Activity Date Activity User E-sign Co-sign Detail Recorded Client Recorded Date Recorded By Document 01/14/23 10:12 MW Desktop 01/14/23 10:25 MW 01/14/23 10:12 Wound Center Nurse 1 #19 Left Lateral LE cluster -Combined with other wound No -Current Size (cm) - Length 1.1 -Current Size (cm) - Width 0.9 -Current Size (cm) - Depth 0.1 -Total Square Cm 0.99 -Photo Taken No -Epithelialization None Present -Tunneling No -Undermining/Tunneling No -Circular Undermining No -Exudate Amt Small -Exudate Type Serosanguineous -Wound Margin Flat & Intact -Granulation Amt Large (67-100%) -Granulation Quality Lingle -Slough/Fibrin Yes -Necrosis Amt Small (1-33%) -Necrotic Tissue Type Adherent Slough -Structure Exposed N/A -Texture (Marie-wound Skin Appearance) Assessed, Localized Edema ,Scarring -Moisture (Marie-wound Skin Appearance) Assessed -Color (Marie-wound Skin Appearance) Assessed, Hemosiderin Staining,Rubor -Temperature (Marie-wound Skin No Abnormality Appearance) (Pt Warm) -Tenderness on Palpation (Marie-wound No Skin Appearance) -Ulcer Cleansing Rinsed/ Irrigated with Saline -Foul Odor after Cleansing No -Anesthetic Used 5% Lidocaine Gel #18 Left medial LE cluster -Combined with other wound No -Current Size (cm) - Length 4.5 -Current Size (cm) - Width 8.0 -Current Size (cm) - Depth 0.1 -Total Square Cm 36.00 -Photo Taken No -Epithelialization None Present -Tunneling No -Undermining/Tunneling No -Circular Undermining No -Exudate Amt Small -Exudate Type Serosanguineous -Wound Margin Flat & Intact -Granulation Amt Large (67-100%) -Granulation Quality Lingle -Slough/Fibrin Yes -Necrosis Amt Small (1-33%) -Necrotic Tissue Type Adherent Slough -Structure Exposed N/A -Texture (Marie-wound Skin Appearance) Assessed, Localized Edema ,Scarring -Moisture (Marie-wound Skin Appearance) Assessed -Color (Marie-wound Skin Appearance) No Abnormality -Temperature (Marie-wound Skin No Abnormality Appearance) (Pt Warm) -Tenderness on Palpation (Marie-wound No Skin Appearance) -Ulcer Cleansing Rinsed/ Irrigated with Saline -Foul Odor after Cleansing No -Anesthetic Used 5% Lidocaine Gel Lower Limb Edema Present Yes Right Calf (cm) 45.0 Right Ankle (cm) 29.0 Left Calf (cm) 44.5 Left Ankle (cm) 29.0 WC - Nurse 2 - General Ulcer CM Notes Start: 01/14/23 10:12 Freq: Status: Active Protocol: Activity Type Activity Date Activity User E-sign Co-sign Detail Recorded Client Recorded Date Recorded By Document 01/14/23 10:25 MW Desktop 01/14/23 10:42 MW 01/14/23 10:25 Wound Center Nurse 2 #19 Left Lateral LE cluster -Time 10:25 -Correct Patient Yes -Correct Side, Site, Position Yes -Correct Procedure Yes -Procedure Performed Yes -Type of Procedure Debridement -Clinical Debridement Subcutaneous -Tissue Removed Subcutaneous -Post Debridement (cm) - Length 1.2 -Post Debridement (cm) - Width 0.8 -Post Debridement (cm) - Depth 0.1 -Total Square (Post) (cm) 0.96 -Area of Debridement (cm) - Length 1.2 -Area of Debridement (cm) - Width 0.8 -Total Square (Area) (cm) 0.96 -Tunneling No -Undermining/Tunneling No -Circular Undermining No -Wound/Ulcer Outcome Not Healed -Ulcer Cleansing Rinsed/ Irrigated with Saline -Foul Odor after Cleansing No -Bioengineered Tissue No -Bleeding Controlled with Pressure -Treatment Response Procedure Tolerated Well -Offloading No -Debridement - Subq, 1st 20sq cm Yes -Debridement, SubQ, ea addt'l 20sq cm 1 or part thereof #18 Left medial LE cluster -Time 10:26 -Correct Patient Yes -Correct Side, Site, Position Yes -Correct Procedure Yes -Procedure Performed Yes -Type of Procedure Debridement -Clinical Debridement Subcutaneous -Tissue Removed Subcutaneous -Post Debridement (cm) - Length 4.2 -Post Debridement (cm) - Width 7.5 -Post Debridement (cm) - Depth 0.2 -Total Square (Post) (cm) 31.50 -Area of Debridement (cm) - Length 4.2 -Area of Debridement (cm) - Width 7.5 -Total Square (Area) (cm) 31.50 -Tunneling No -Undermining/Tunneling No -Circular Undermining No -Wound/Ulcer Outcome Not Healed -Ulcer Cleansing Rinsed/ Irrigated with Saline -Foul Odor after Cleansing No -Bioengineered Tissue No -Bleeding Controlled with Pressure -Treatment Response Procedure Tolerated Well -Offloading No -Debridement - Subq, 1st 20sq cm No Pain Scale: 0-10 Numeric Is Patient Pain Free? Yes - Nurse 3 - General Ulcer D/C NN Start: 01/14/23 10:12 Freq: Status: Active Protocol: Activity Type Activity Date Activity User E-sign Co-sign Detail Recorded Client Recorded Date Recorded By Document 01/14/23 10:49 MW Desktop 01/14/23 10:51 MW 01/14/23 10:49 Wound Care Center Nurse 3 #19 Left Lateral LE cluster -Ulcer Cleansing Rinsed/ Irrigated with Saline -Foul Odor after Cleansing No -Negative Pressure Wound Therapy N/A -Primary Dressing Applied Aquacel Extra -Primary Dressing Covered/Secured with Dry Gauze & Roll Gauze, Secured with Tape -Other Covering ABD PAD -Aquacel Extra 1 #18 Left medial LE cluster -Ulcer Cleansing Rinsed/ Irrigated with Saline -Foul Odor after Cleansing No -Negative Pressure Wound Therapy N/A -Other Dressing AQUACEL EXTRA -Primary Dressing Covered/Secured with Dry Gauze & Roll Gauze, Secured with Tape -Other Covering ABD PAD Right -Lotion applied to leg before No compression wrap -Compression Wrap Kishore Wrap Left -Lotion applied to leg before No compression wrap -Compression Wrap Kishore Wrap Treatment Response Procedure Tolerated Well Pain Scale: 0-10 Numeric Is Patient Pain Free? Yes Teaching: Wound Center Dressing Your Wound -Person Taught Patient -Teaching Method Discussion, Demonstration -Response to teaching Verbalize understanding WC - Visit Discharge Discharge Condition Stable Ambulatory Status Ambulatory, Walker Transportation Private Auto Accompanied by SHANAE Medication Reconcilliation completed & No provided to patient/care provider Clinical Summary of Care Provided Yes Additional Wound Wound debrided: left medial LE cluster Laterality: Left Type of Debridement: Excisional debridement Anesthesia Used: 4% Lidocaine Solution and 5% Lidocaine Gel Depth: Down to and including healthy tissue and in the subcutaneous layer Percentage of wound debrided: 100 Instrument Used: 5mm curette Tissue Removed: yellow slough, devitalized tissue Severity: Fat Layer Exposed Amount of bleeding with debridement: Mild Bleeding Controlled with: Compression and gauze Patient tolerated procedure: Patient tolerated procedure well Assessment/Plan Assessment/Plan (1) Ulcer of right lower extremity with fat layer exposed: CODE(S): L97.912 - Non-pressure chronic ulcer of unspecified part of rightlower leg with fat layer exposed (2) Ulcer of left lower extremity with fat layer exposed: CODE(S): L97.922 - Non-pressure chronic ulcer of unspecified part of left lower leg with fat layer exposed (3) Venous insufficiency: CODE(S): I87.2 - Venous insufficiency (chronic) (peripheral) (4) Edema: CODE(S): R60.9 - Edema, unspecified QUALIFIERS: Edema type: unspecified Qualified Code(s): R60.9 - Edema, unspecified (5) History of CVA (cerebrovascular accident): CODE(S): Z86.73 - Personal history of transient ischemic attack (TIA), andcerebral infarction without residual deficits (6) Venous ulcer of left lower extremity with varicose veins: CODE(S): I83.029 - Varicose veins of left lower extremity with ulcer of unspecified site (7) Venous ulcer of both lower extremities with varicose veins: CODE(S): I83.019 - Varicose veins of right lower extremity with ulcer of unspecified site; I83.029 - Varicose veins of left lower extremity with ulcer ofunspecified site (8) Venous ulcers of both lower extremities: CODE(S): I87.2 - Venous insufficiency (chronic) (peripheral) (9) Lymphedema: CODE(S): I89.0 - Lymphedema, not elsewhere classified PLAN: Plan Debridement performed today in clinic as annotated above. At home wound-care instructions: Apply Aquacel Extra to ulcers, compression withACE bandages and increase lasix to 2 tabs BID. Off-loading: The patient was instructed to avoid pressure and friction on the affected areas. Reposition every 2 hours at minimum. Avoid prolonged standing and/or dangling of legs. When seated, feet should be elevated at chest level. Frequent ambulation is encouraged. Encouraged lymphedema pump use. Diet: Patient encouraged to increase protein intake while taking caution to avoid high carbohydrate and/or sugar intake. Labs/cultures/imaging: Follow-up: Return in 1 week for wound care follow up. Return sooner or report tothe emergency room should symptoms worsen, or new symptoms arise. Note: [employer] speech recognition hair tinter software was used to create portions of this document. Sound-alike and misspelled words, as well as other hair tinter errors may be contained in the documentation. 01/14/23 1442 <Electronically signed by Patricia Garcia DO> Cosigner Signature (if applicable): CC: ~ Signed [facility] Work Phone: [phone] [phone] Garcia [facility] January 07, 2023 2:13pm Note Date/Time January 07, 2023 2:1 3pm [facility] [address] [place] [id number] Progress Note - Wound Care 01/07/23 1407 MR#: [id number] Acct: [id number] Name: ESTEBAN URBINA Rep #:[id number] : 1955 67 From: Patricia Garcia DO PCP: Dr. Patricia Garcia DO Status:REG RCR Location: History of Present Illness Date of Service: 01/07/23 Chief Complaint: venous ulcers of bilateral lower extremities History of Wound: Mauricio is a 67 yo gentleman who is here today for evaluation of ulcers to to his bilateral lower legs. [facility]. The left LE ulcer started after he developed increased swelling and blisters of left leg in October and the right leg started sometime at the end of October. He was seen at PCP's office a culture was taken and it was resistant to several antibiotics. He was treated initially with Levaquin but had myalgias and then was treated with doxycycline which he finished 2 days ago. He denies improvementand is having swelling to his left calf and thigh. He has been having swelling to both lower extremities for many years and it has worsened over the last few months. He has not been compliant with compression. He has had increased pain especially in the left leg. He has clear yellow drainage and redness without odor or warmth. He is anti-coagulated on coumadin. He has been washing with Dial soap and witch ifrah. He had been using Collagen at times and using Calcium Alginate and covering with ABD pads during October. He was treated with 3M compression and Aquacel Ag. He was referred to the wound center for ongoing treatment. His ulcers have moderate to heavy drainage. He was recently hospitalized for cellulitis and edema for the last 10 days. Discharged on 12/09/22 and is currently in the Skilled section of [facility]. He returned to his assisted living apartment on Tuesday12/21/22. Subjective Subjective He was in the hospital from 11/30/22 until 12/09/22 for treatment of cellulitis andedema. He underwent treatment with Vancomycin and IV lasix and compression. He tolerated treatment this week with adaptic, Fibracol and gauze and KISHORE bandages but was not seen last week due to transportation. His ulcers and edema are worse this week. Objective Data Objective Data Vital Signs: Vital Signs Temp Pulse Resp BP O2 Del Method 97 F L 72 18 122/62 H Room Air 01/07/23 10:03 01/07/23 10:03 01/07/23 10:03 01/07/23 10:03 12/17/22 09:35 Oxygen Delivery Method Room Air Physical Exam Const alert, oriented x3 and no apparent distress General Appearance: cooperative and comfortable HEENT normocephalic and head/scalp atraumatic Lymph Lymphatic: lymphedema moderate Resp normal respiratory effort Effort and Inspection: able to speak in complete sentences Cardio regular rate and regular rhythm Extremity General Extremity: edema bilateral lower extremity Details: severe Skin Wounds: wounds noted Wound Narrative: as in clinical panel Psych mental status grossly normal, thought process normal, cooperative and affect normal Debridement Note Debridement Note Wound debrided: Left lateral LE cluster Laterality: Left Type of Debridement: Excisional debridement Anesthesia Used: 4% Lidocaine Solution Depth: Down to and including healthy tissue and in the subcutaneous layer Percentage of wound debrided: 100 Instrument Used: 5mm curette Tissue Removed: Yellow slough, devitalized tissue Severity: Fat Layer Exposed Amount of bleeding with debridement: Mild Bleeding Controlled with: Compression and gauze Patient tolerated procedure: Patient tolerated procedure well Post-Debridement Measurements and Additional Note: Post-Debridement Measurements/Treatment DEBBIE - Nurse 1 - General Ulcer Assessment Start: 12/10/22 09:38 Freq: Status: Active Protocol: ONDINA Activity Type Activity Date Activity User E-sign Co-sign Detail Recorded Client Recorded Date Recorded By Document 12/10/22 09:39 DL [id number] 12/10/22 09:51 DL Document 12/17/22 09:35 BMF [id number] 12/17/22 09:48 BMF Document 12/24/22 10:59 RB [id number] 12/24/22 11:25 RB Edit Result 12/24/22 10:59 RB (1) [id number] 12/24/22 11:53 RB Document 01/07/23 10:03 RB [id number] 01/07/23 10:14 RB (1) Pulse Rate (60-100) => 74 Blood Pressure (90/60-120/80) => 107/58 L Blood Pressure Mean (mm Hg) => 74 12/10/22 12/17/22 12/24/22 09:39 09:35 10:59 WC - Today's Visit Information Type of service Follow-up Visit Follow-up Visit Follow-up Visit (Physician/APPLICATIONS SPECIALIST (Physician/APPLICATIONS SPECIALIST (Physician/APPLICATIONS SPECIALIST ) ) ) Arrival Mode Wheelchair Wheelchair Ambulatory, Walker Transfer Assistance Manual Other Manual Transfer Assist (Other) x1 2 min assist Patient Identification Verified (Name & Yes Yes Yes ) Patient Requires Transmission-Based No No No Precautions Vital Signs Temperature (97.8 F-99.1 F) 97 F L 96.7 F L 97 F L Temperature Source Temporal Temporal Temporal Pulse Rate (60-100) 85 75 74 Pulse Location Monitor Monitor Monitor Respiratory Rate (12-18) 22 H 16 18 Respiratory rate source Observation Observation Oxygen Delivery Method Room Air Blood Pressure (90/60-120/80) 117/79 149/87 H 107/58 L Blood Pressure Mean (mm Hg) 91 107 74 Source Monitor Monitor Monitor Position Sitting Sitting Blood Pressure Location Right Forearm Left Arm History Since Last Visit- (Skip if this is Patient's initial visit) Have you changed medications since your No No No last visit? Any new allergies or adverse reactions No No No Had a fall/change in ADL's that may No No No increase risk of falls Signs or symptoms of abuse and/or No No No neglect since last visit Have you been in the hospital since your No No last visit? Has dressing in place as prescribed Yes Yes Yes Has compression in place as prescribed Yes Yes Yes Has offloadiing in place as prescribed N/A N/A No Experienced any changes in pain level or No No management Left Footwear Slipper Regular Shoe Right Footwear Slipper Regular Shoe Pain Scale: 0-10 Numeric Is Patient Pain Free? Yes Yes No bilat LE -Description Aching -Intensity 6 -Duration (hours) Acute -Pain Behavior Guarding -Pain Aggravating Factors Exercise/ Activity -Alleviating Factors/Interventions Medication 01/07/23 10:03 WC - Today's Visit Information Type of service Follow-up Visit (Physician/APPLICATIONS SPECIALIST ) Arrival Mode Ambulatory, Walker Transfer Assistance None Transfer Assist (Other) Patient Identification Verified (Name & Yes ) Patient Requires Transmission-Based No Precautions Vital Signs Temperature (97.8 F-99.1 F) 97 F L Temperature Source Temporal Pulse Rate (60-100) 72 Pulse Location Monitor Respiratory Rate (12-18) 18 Respiratory rate source Observation Oxygen Delivery Method Blood Pressure (90/60-120/80) 122/62 H Blood Pressure Mean (mm Hg) 82 Source Monitor Position Semi-Fowlers Blood Pressure Location Left Arm History Since Last Visit- (Skip if this is Patient's initial visit) Have you changed medications since your No last visit? Any new allergies or adverse reactions No Had a fall/change in ADL's that may No increase risk of falls Signs or symptoms of abuse and/or No neglect since last visit Have you been in the hospital since your No last visit? Has dressing in place as prescribed Yes Has compression in place as prescribed Yes Has offloadiing in place as prescribed No Experienced any changes in pain level or No management Left Footwear Right Footwear Pain Scale: 0-10 Numeric Is Patient Pain Free? Yes bilat LE -Description -Intensity -Duration (hours) -Pain Behavior -Pain Aggravating Factors -Alleviating Factors/Interventions - Nurse 1 - General Ulcer Measurement Start: 12/10/22 09:38 Freq: Status: Active Protocol: Activity Type Activity Date Activity User E-sign Co-sign Detail Recorded Client Recorded Date Recorded By Document 12/10/22 09:39 DL [id number] 12/10/22 09:51 DL Document 12/17/22 09:35 BMF [id number] 12/17/22 09:48 BMF Document 12/24/22 10:59 RB [id number] 12/24/22 11:25 RB Document 01/07/23 10:03 RB [id number] 01/07/23 10:14 RB 12/10/22 12/17/22 12/24/22 09:39 09:35 10:59 Wound Center Nurse 1 #17 right lateral LE cluster -Combined with other wound No No -Current Size (cm) - Length 3 3.8 0.1 -Current Size (cm) - Width 5.1 5 0.1 -Current Size (cm) - Depth 0.1 0.1 0.1 -Total Square Cm 15.3 19.0 0.01 -Photo Taken No No Yes -Epithelialization Small 1-33% -Tunneling No No -Undermining/Tunneling No No -Circular Undermining No No -Exudate Amt Medium Small Medium -Exudate Type Serosanguineous Serosanguineous Serosanguineous -Wound Margin Indistinct, Non Flat & Intact Distinct, -Visible Outline Attached -Granulation Amt Large (67-100%) Medium (34-66%) Medium (34-66%) -Granulation Quality Red Red Lingle -Slough/Fibrin Yes Yes -Necrosis Amt None Present (0 Medium (34-66%) Medium (34-66%) %) -Necrotic Tissue Type Adherent Slough Adherent Slough -Structure Exposed N/A N/A -Texture (Marie-wound Skin Appearance) Localized Edema Assessed, Assessed ,Scarring Scarring -Moisture (Marie-wound Skin Appearance) Dry/Scaly Assessed,Dry/ Assessed Scaly -Color (Marie-wound Skin Appearance) Ecchymosis, Assessed, Hemosiderin Erythema, Hemosiderin Staining Hemosiderin Staining Staining -Temperature (Marie-wound Skin No Abnormality No Abnormality No Abnormality Appearance) (Pt Warm) (Pt Warm) (Pt Warm) -Tenderness on Palpation (Marie-wound No No No Skin Appearance) -Ulcer Cleansing Soap and Water Soap and Water Wound Cleanser -Foul Odor after Cleansing No No No -Anesthetic Used 5% Lidocaine 4% Lidocaine 5% Lidocaine Gel Solution Gel 16. LLE cluster -Current Size (cm) - Length 29.5 -Current Size (cm) - Width 16 -Current Size (cm) - Depth 0.1 -Total Square Cm 472.0 -Photo Taken No -Exudate Amt Medium -Exudate Type Serosanguineous -Wound Margin Indistinct, Non -Visible -Granulation Quality Red -Necrosis Amt Small (1-33%) -Necrotic Tissue Type Adherent Slough -Structure Exposed N/A -Texture (Marie-wound Skin Appearance) Localized Edema ,Scarring -Moisture (Marie-wound Skin Appearance) Dry/Scaly -Color (Marie-wound Skin Appearance) Ecchymosis, Erythema, Hemosiderin Staining -Temperature (Marie-wound Skin No Abnormality Appearance) (Pt Warm) -Tenderness on Palpation (Marie-wound No Skin Appearance) -Foul Odor after Cleansing No -Anesthetic Used 4% Lidocaine Solution 15.RLE medial -Combined with other wound No -Current Size (cm) - Length 5 0.1 -Current Size (cm) - Width 6 0.1 -Current Size (cm) - Depth 0.1 0.1 -Total Square Cm 30 0.01 -Photo Taken No -Epithelialization Large 67-100% -Tunneling No -Undermining/Tunneling No -Circular Undermining No -Exudate Amt Medium None Present -Exudate Type Serosanguineous -Wound Margin Indistinct, Non -Visible -Granulation Amt Medium (34-66%) -Granulation Quality Red -Necrosis Amt Medium (34-66%) -Necrotic Tissue Type Adherent Slough -Structure Exposed N/A -Texture (Marie-wound Skin Appearance) Localized Edema Assessed ,Scarring -Moisture (Marie-wound Skin Appearance) Dry/Scaly Assessed,Dry/ Scaly -Color (Marie-wound Skin Appearance) Ecchymosis, Assessed, Erythema, Hemosiderin Hemosiderin Staining Staining -Temperature (Marie-wound Skin No Abnormality Appearance) (Pt Warm) -Tenderness on Palpation (Marie-wound No No Skin Appearance) -Ulcer Cleansing Soap and Water Soap and Water -Foul Odor after Cleansing No No -Anesthetic Used 4% Lidocaine 4% Lidocaine Solution Solution #19 Left Lateral LE cluster -Combined with other wound No No -Current Size (cm) - Length 17 1.5 -Current Size (cm) - Width 12.5 1.4 -Current Size (cm) - Depth 0.1 0.1 -Total Square Cm 212.5 2.10 -Photo Taken No Yes -Epithelialization Small 1-33% -Tunneling No No -Undermining/Tunneling No No -Circular Undermining No No -Exudate Amt Medium Large -Exudate Type Serosanguineous Serosanguineous -Wound Margin Distinct, Distinct, Outline Outline Attached Attached -Granulation Amt Medium (34-66%) Medium (34-66%) -Granulation Quality Red Lingle -Slough/Fibrin Yes Yes -Necrosis Amt Medium (34-66%) Medium (34-66%) -Necrotic Tissue Type Adherent Slough Adherent Slough -Structure Exposed N/A -Texture (Marie-wound Skin Appearance) Assessed, Assessed Scarring -Moisture (Marie-wound Skin Appearance) Assessed,Dry/ Assessed Scaly -Color (Marie-wound Skin Appearance) Assessed, Hemosiderin Hemosiderin Staining Staining -Temperature (Marie-wound Skin No Abnormality No Abnormality Appearance) (Pt Warm) (Pt Warm) -Tenderness on Palpation (Marie-wound No No Skin Appearance) -Ulcer Cleansing Soap and Water Wound Cleanser -Foul Odor after Cleansing No No -Anesthetic Used 4% Lidocaine 5% Lidocaine Solution Gel #18 Left medial LE cluster -Combined with other wound No No -Current Size (cm) - Length 17 5.5 -Current Size (cm) - Width 16.8 6 -Current Size (cm) - Depth 0.1 0.1 -Total Square Cm 285.6 33.0 -Photo Taken No Yes -Epithelialization Small 1-33% -Tunneling No No -Undermining/Tunneling No No -Circular Undermining No No -Exudate Amt Medium Medium -Exudate Type Serosanguineous Serosanguineous -Wound Margin Distinct, Distinct, Outline Outline Attached Attached -Granulation Amt Large (67-100%) Medium (34-66%) -Granulation Quality [place] -Slough/Fibrin Yes Yes -Necrosis Amt Small (1-33%) Medium (34-66%) -Necrotic Tissue Type Adherent Slough Adherent Slough -Structure Exposed N/A -Texture (Marie-wound Skin Appearance) Assessed, Assessed Scarring -Moisture (Marie-wound Skin Appearance) Assessed,Dry/ Assessed Scaly -Color (Marie-wound Skin Appearance) Assessed, Hemosiderin Hemosiderin Staining Staining -Temperature (Marie-wound Skin No Abnormality No Abnormality Appearance) (Pt Warm) (Pt Warm) -Tenderness on Palpation (Marie-wound No No Skin Appearance) -Ulcer Cleansing Soap and Water Wound Cleanser -Foul Odor after Cleansing No No -Anesthetic Used 4% Lidocaine 5% Lidocaine Solution Gel Lower Limb Edema Present Yes Yes Right Calf (cm) 43.5 40 47.5 Right Ankle (cm) 27 27 28 Left Calf (cm) 43.5 43 46 Left Ankle (cm) 29 26.5 29 01/07/23 10:03 Wound Center Nurse 1 #17 right lateral LE cluster -Combined with other wound -Current Size (cm) - Length -Current Size (cm) - Width -Current Size (cm) - Depth -Total Square Cm -Photo Taken -Epithelialization -Tunneling -Undermining/Tunneling -Circular Undermining -Exudate Amt -Exudate Type -Wound Margin -Granulation Amt -Granulation Quality -Slough/Fibrin -Necrosis Amt -Necrotic Tissue Type -Structure Exposed -Texture (Marie-wound Skin Appearance) -Moisture (Marie-wound Skin Appearance) -Color (Marie-wound Skin Appearance) -Temperature (Marie-wound Skin Appearance) -Tenderness on Palpation (Marie-wound Skin Appearance) -Ulcer Cleansing -Foul Odor after Cleansing -Anesthetic Used 16. LLE cluster -Current Size (cm) - Length -Current Size (cm) - Width -Current Size (cm) - Depth -Total Square Cm -Photo Taken -Exudate Amt -Exudate Type -Wound Margin -Granulation Quality -Necrosis Amt -Necrotic Tissue Type -Structure Exposed -Texture (Marie-wound Skin Appearance) -Moisture (Marie-wound Skin Appearance) -Color (Marie-wound Skin Appearance) -Temperature (Marie-wound Skin Appearance) -Tenderness on Palpation (Marie-wound Skin Appearance) -Foul Odor after Cleansing -Anesthetic Used 15.RLE medial -Combined with other wound -Current Size (cm) - Length -Current Size (cm) - Width -Current Size (cm) - Depth -Total Square Cm -Photo Taken -Epithelialization -Tunneling -Undermining/Tunneling -Circular Undermining -Exudate Amt -Exudate Type -Wound Margin -Granulation Amt -Granulation Quality -Necrosis Amt -Necrotic Tissue Type -Structure Exposed -Texture (Marie-wound Skin Appearance) -Moisture (Marie-wound Skin Appearance) -Color (Marie-wound Skin Appearance) -Temperature (Marie-wound Skin Appearance) -Tenderness on Palpation (Marie-wound Skin Appearance) -Ulcer Cleansing -Foul Odor after Cleansing -Anesthetic Used #19 Left Lateral LE cluster -Combined with other wound No -Current Size (cm) - Length 1.8 -Current Size (cm) - Width 1.2 -Current Size (cm) - Depth 0.1 -Total Square Cm 2.16 -Photo Taken Yes -Epithelialization -Tunneling No -Undermining/Tunneling No -Circular Undermining No -Exudate Amt Large -Exudate Type Serosanguineous -Wound Margin Distinct, Outline Attached -Granulation Amt Medium (34-66%) -Granulation Quality Lingle -Slough/Fibrin Yes -Necrosis Amt Medium (34-66%) -Necrotic Tissue Type Adherent Slough -Structure Exposed N/A -Texture (Marie-wound Skin Appearance) Assessed -Moisture (Marie-wound Skin Appearance) Assessed -Color (Marie-wound Skin Appearance) Hemosiderin Staining -Temperature (Marie-wound Skin No Abnormality Appearance) (Pt Warm) -Tenderness on Palpation (Marie-wound No Skin Appearance) -Ulcer Cleansing Wound Cleanser -Foul Odor after Cleansing No -Anesthetic Used 5% Lidocaine Gel #18 Left medial LE cluster -Combined with other wound No -Current Size (cm) - Length 5 -Current Size (cm) - Width 8 -Current Size (cm) - Depth 0.1 -Total Square Cm 40 -Photo Taken Yes -Epithelialization -Tunneling No -Undermining/Tunneling No -Circular Undermining No -Exudate Amt Large -Exudate Type Serosanguineous -Wound Margin Distinct, Outline Attached -Granulation Amt Medium (34-66%) -Granulation Quality Lingle -Slough/Fibrin Yes -Necrosis Amt Medium (34-66%) -Necrotic Tissue Type Adherent Slough -Structure Exposed N/A -Texture (Marie-wound Skin Appearance) Assessed -Moisture (Marie-wound Skin Appearance) Assessed -Color (Marie-wound Skin Appearance) Hemosiderin Staining -Temperature (Marie-wound Skin No Abnormality Appearance) (Pt Warm) -Tenderness on Palpation (Marie-wound Yes Skin Appearance) -Ulcer Cleansing Rinsed/ Irrigated with Saline -Foul Odor after Cleansing No -Anesthetic Used 5% Lidocaine Gel Lower Limb Edema Present Yes Right Calf (cm) 42 Right Ankle (cm) 28.5 Left Calf (cm) 43 Left Ankle (cm) 32 WC - Nurse 2 - General Ulcer CM Notes Start: 03/03/23 09:38 Freq: Status: Active Protocol: Activity Type Activity Date Activity User E-sign Co-sign Detail Recorded Client Recorded Date Recorded By Document 12/10/22 10:18 MW [id number] 12/10/22 11:06 MW Document 12/17/22 09:58 BMF [id number] 12/17/22 10:35 BMF Edit Result 12/17/22 09:58 BMF (1) [id number] 12/17/22 12:48 PL Document 12/24/22 11:41 MW [id number] 12/24/22 12:01 MW Document 01/07/23 10:20 MW [id number] 01/07/23 10:50 MW (1) #17 right lateral LE cluster - Debridement - Subq, 1st 20sq cm No => Yes - Debridement, SubQ, ea addt'l 20sq cm => 11 or part thereof 12/10/22 12/17/22 12/24/22 10:18 09:58 11:41 Wound Center Nurse 2 #17 right lateral LE cluster -Time 10:18 10:05 11:43 -Correct Patient Yes Yes Yes -Correct Side, Site, Position Yes Yes Yes -Correct Procedure Yes Yes Yes -Procedure Performed Yes Yes No -Type of Procedure Debridement Debridement -Clinical Debridement Subcutaneous Subcutaneous -Tissue Removed Subcutaneous Subcutaneous -Post Debridement (cm) - Length 2.5 0.5 -Post Debridement (cm) - Width 5.0 2.9 -Post Debridement (cm) - Depth 0.1 0.1 -Total Square (Post) (cm) 12.50 1.45 -Area of Debridement (cm) - Length 2.5 0.5 -Area of Debridement (cm) - Width 5.0 2.9 -Total Square (Area) (cm) 12.50 1.45 -Tunneling No No No -Undermining/Tunneling No No No -Circular Undermining No No No -Wound/Ulcer Outcome Not Healed Not Healed Healed- Epithelialized -Ulcer Cleansing Rinsed/ Rinsed/ Irrigated with Irrigated with Saline Saline -Foul Odor after Cleansing No No -Bioengineered Tissue No No -Bleeding Controlled with Pressure Pressure -Treatment Response Procedure Procedure Tolerated Well Tolerated Well -Offloading No -Assistive Device(s) Wheelchair -Debridement - Subq, 1st 20sq cm Yes Yes -Debridement, SubQ, ea addt'l 20sq cm 16 11 or part thereof 16. LLE cluster -Time 10:20 -Correct Patient Yes -Correct Side, Site, Position Yes -Correct Procedure Yes -Procedure Performed No -Tunneling No -Undermining/Tunneling No -Circular Undermining No -Wound/Ulcer Outcome Converted 15.RLE medial -Time 10:25 10:06 -Correct Patient Yes Yes -Correct Side, Site, Position Yes Yes -Correct Procedure Yes Yes -Procedure Performed Yes Yes -Type of Procedure Debridement Debridement -Clinical Debridement Subcutaneous Subcutaneous -Tissue Removed Subcutaneous Subcutaneous -Post Debridement (cm) - Length 1.0 0 -Post Debridement (cm) - Width 0.8 0 -Post Debridement (cm) - Depth 0.1 0 -Total Square (Post) (cm) 0.80 0 -Area of Debridement (cm) - Length 1.0 0 -Area of Debridement (cm) - Width 0.8 0 -Total Square (Area) (cm) 0.80 0 -Tunneling No No -Undermining/Tunneling No No -Circular Undermining No No -Wound/Ulcer Outcome Not Healed Healed- Epithelialized -Ulcer Cleansing Rinsed/ Rinsed/ Irrigated with Irrigated with Saline Saline -Foul Odor after Cleansing No No -Bioengineered Tissue No No -Bleeding Controlled with Pressure Pressure -Treatment Response Procedure Procedure Tolerated Well Tolerated Well -Offloading No -Assistive Device(s) Wheelchair -Debridement - Subq, 1st 20sq cm No No #20 right [place] -Time -Correct Patient -Correct Side, Site, Position -Correct Procedure -Procedure Performed -Type of Procedure -Clinical Debridement -Tissue Removed -Post Debridement (cm) - Length -Post Debridement (cm) - Width -Post Debridement (cm) - Depth -Total Square (Post) (cm) -Area of Debridement (cm) - Length -Area of Debridement (cm) - Width -Total Square (Area) (cm) -Tunneling -Undermining/Tunneling -Circular Undermining -Wound/Ulcer Outcome -Ulcer Cleansing -Foul Odor after Cleansing -Bioengineered Tissue -Bleeding Controlled with -Treatment Response -Offloading -Debridement - Subq, 1st 20sq cm #19 Left Lateral LE cluster -Time 10:56 10:01 11:43 -Correct Patient Yes Yes Yes -Correct Side, Site, Position Yes Yes Yes -Correct Procedure Yes Yes Yes -Procedure Performed Yes Yes Yes -Type of Procedure Debridement Debridement Debridement -Clinical Debridement Subcutaneous Subcutaneous Subcutaneous -Tissue Removed Subcutaneous Subcutaneous Subcutaneous -Post Debridement (cm) - Length 10.5 10 1.7 -Post Debridement (cm) - Width 8.5 7 1.4 -Post Debridement (cm) - Depth 0.1 0.1 0.1 -Total Square (Post) (cm) 89.25 70 2.38 -Area of Debridement (cm) - Length 10.5 10 1.7 -Area of Debridement (cm) - Width 8.5 7 1.4 -Total Square (Area) (cm) 89.25 70 2.38 -Tunneling No No No -Undermining/Tunneling No No No -Circular Undermining No No No -Wound/Ulcer Outcome Not Healed Not Healed Not Healed -Ulcer Cleansing Rinsed/ Rinsed/ Rinsed/ Irrigated with Irrigated with Irrigated with Saline Saline Saline -Foul Odor after Cleansing No No No -Bioengineered Tissue No No No -Bleeding Controlled with Pressure Pressure -Treatment Response Procedure Procedure Procedure Tolerated Well Tolerated Well Tolerated Well -Offloading No No -Assistive Device(s) Wheelchair -Debridement - Subq, 1st 20sq cm No No Yes -Debridement, SubQ, ea addt'l 20sq cm 3 or part thereof #18 Left medial LE cluster -Time 10:55 10:02 11:43 -Correct Patient Yes Yes Yes -Correct Side, Site, Position Yes Yes Yes -Correct Procedure Yes Yes Yes -Procedure Performed Yes Yes Yes -Type of Procedure Debridement Debridement Debridement -Clinical Debridement Subcutaneous Subcutaneous Subcutaneous -Tissue Removed Subcutaneous Subcutaneous Subcutaneous -Post Debridement (cm) - Length 17.0 14 7.0 -Post Debridement (cm) - Width 13.0 11 8.5 -Post Debridement (cm) - Depth 0.1 0.1 0.1 -Total Square (Post) (cm) 221.00 154 59.50 -Area of Debridement (cm) - Length 17.0 14 7.0 -Area of Debridement (cm) - Width 13.0 11 8.5 -Total Square (Area) (cm) 221.00 154 59.50 -Tunneling No No No -Undermining/Tunneling No No No -Circular Undermining No No No -Wound/Ulcer Outcome Not Healed Not Healed Not Healed -Ulcer Cleansing Rinsed/ Rinsed/ Rinsed/ Irrigated with Irrigated with Irrigated with Saline Saline Saline -Foul Odor after Cleansing No No No -Bioengineered Tissue No No No -Bleeding Controlled with Pressure Pressure -Treatment Response Procedure Procedure Tolerated Well Tolerated Well -Offloading No No -Assistive Device(s) Wheelchair -Debridement - Subq, 1st 20sq cm No No No Pain Scale: 0-10 Numeric Is Patient Pain Free? Yes Yes Yes 01/07/23 10:20 Wound Center Nurse 2 #17 right lateral LE cluster -Time -Correct Patient -Correct Side, Site, Position -Correct Procedure -Procedure Performed -Type of Procedure -Clinical Debridement -Tissue Removed -Post Debridement (cm) - Length -Post Debridement (cm) - Width -Post Debridement (cm) - Depth -Total Square (Post) (cm) -Area of Debridement (cm) - Length -Area of Debridement (cm) - Width -Total Square (Area) (cm) -Tunneling -Undermining/Tunneling -Circular Undermining -Wound/Ulcer Outcome -Ulcer Cleansing -Foul Odor after Cleansing -Bioengineered Tissue -Bleeding Controlled with -Treatment Response -Offloading -Assistive Device(s) -Debridement - Subq, 1st 20sq cm -Debridement, SubQ, ea addt'l 20sq cm or part thereof 16. LLE cluster -Time -Correct Patient -Correct Side, Site, Position -Correct Procedure -Procedure Performed -Tunneling -Undermining/Tunneling -Circular Undermining -Wound/Ulcer Outcome 15.RLE medial -Time -Correct Patient -Correct Side, Site, Position -Correct Procedure -Procedure Performed -Type of Procedure -Clinical Debridement -Tissue Removed -Post Debridement (cm) - Length -Post Debridement (cm) - Width -Post Debridement (cm) - Depth -Total Square (Post) (cm) -Area of Debridement (cm) - Length -Area of Debridement (cm) - Width -Total Square (Area) (cm) -Tunneling -Undermining/Tunneling -Circular Undermining -Wound/Ulcer Outcome -Ulcer Cleansing -Foul Odor after Cleansing -Bioengineered Tissue -Bleeding Controlled with -Treatment Response -Offloading -Assistive Device(s) -Debridement - Subq, 1st 20sq cm #20 right [place] -Time 10:25 -Correct Patient Yes -Correct Side, Site, Position Yes -Correct Procedure Yes -Procedure Performed Yes -Type of Procedure Debridement -Clinical Debridement Subcutaneous -Tissue Removed Subcutaneous -Post Debridement (cm) - Length 1.0 -Post Debridement (cm) - Width 0.8 -Post Debridement (cm) - Depth 0.1 -Total Square (Post) (cm) 0.80 -Area of Debridement (cm) - Length 1.0 -Area of Debridement (cm) - Width 0.8 -Total Square (Area) (cm) 0.80 -Tunneling No -Undermining/Tunneling No -Circular Undermining No -Wound/Ulcer Outcome Not Healed -Ulcer Cleansing Rinsed/ Irrigated with Saline -Foul Odor after Cleansing No -Bioengineered Tissue No -Bleeding Controlled with Pressure -Treatment Response Procedure Tolerated Well -Offloading No -Debridement - Subq, 1st 20sq cm No #19 Left Lateral LE cluster -Time 10:22 -Correct Patient Yes -Correct Side, Site, Position Yes -Correct Procedure Yes -Procedure Performed Yes -Type of Procedure Debridement -Clinical Debridement Subcutaneous -Tissue Removed Subcutaneous -Post Debridement (cm) - Length 0.8 -Post Debridement (cm) - Width 1.1 -Post Debridement (cm) - Depth 0.1 -Total Square (Post) (cm) 0.88 -Area of Debridement (cm) - Length 0.8 -Area of Debridement (cm) - Width 1.1 -Total Square (Area) (cm) 0.88 -Tunneling No -Undermining/Tunneling No -Circular Undermining No -Wound/Ulcer Outcome Not Healed -Ulcer Cleansing Rinsed/ Irrigated with Saline -Foul Odor after Cleansing No -Bioengineered Tissue No -Bleeding Controlled with Pressure -Treatment Response Procedure Tolerated Well -Offloading No -Assistive Device(s) -Debridement - Subq, 1st 20sq cm Yes -Debridement, SubQ, ea addt'l 20sq cm or part thereof #18 Left medial LE cluster -Time 10:22 -Correct Patient Yes -Correct Side, Site, Position Yes -Correct Procedure Yes -Procedure Performed Yes -Type of Procedure Debridement -Clinical Debridement Subcutaneous -Tissue Removed Subcutaneous -Post Debridement (cm) - Length 4.7 -Post Debridement (cm) - Width 7.0 -Post Debridement (cm) - Depth 0.1 -Total Square (Post) (cm) 32.90 -Area of Debridement (cm) - Length 4.7 -Area of Debridement (cm) - Width 7.0 -Total Square (Area) (cm) 32.90 -Tunneling No -Undermining/Tunneling No -Circular Undermining No -Wound/Ulcer Outcome Not Healed -Ulcer Cleansing Rinsed/ Irrigated with Saline -Foul Odor after Cleansing No -Bioengineered Tissue No -Bleeding Controlled with Pressure -Treatment Response Procedure Tolerated Well -Offloading No -Assistive Device(s) -Debridement - Subq, 1st 20sq cm No Pain Scale: 0-10 Numeric Is Patient Pain Free? Yes WC - Nurse 3 - General Ulcer D/C NN Start: 12/10/22 09:38 Freq: Status: Active Protocol: Activity Type Activity Date Activity User E-sign Co-sign Detail Recorded Client Recorded Date Recorded By Document 12/10/22 11:09 DL [id number] 12/10/22 11:12 DL Document 12/17/22 11:30 RB [id number] 12/17/22 11:34 RB Document 12/24/22 12:22 RB [id number] 12/24/22 12:24 RB Document 01/07/23 11:00 DL [id number] 01/07/23 11:02 DL 12/10/22 12/17/22 12/24/22 11:09 11:30 12:22 Wound Care Center Nurse 3 #17 right lateral LE cluster -Ulcer Cleansing Rinsed/ Irrigated with Saline -Foul Odor after Cleansing No -Primary Dressing Applied Aquacel Extra, NonAdherent NonAdherent Contact Layer Contact Layer -Other Dressing AQUACEL EXTRA -Primary Dressing Covered/Secured with Dry Gauze & Dry Gauze,Dry Roll Gauze, Gauze & Roll Secured with Gauze,Secured Tape with Tape -Aquacel Extra 1 15.RLE medial -Ulcer Cleansing Rinsed/ Rinsed/ Irrigated with Irrigated with Saline Saline -Foul Odor after Cleansing No -Primary Dressing Applied NonAdherent NonAdherent Contact Layer Contact Layer -Other Dressing aquacel EX AQUACEL EXTRA -Primary Dressing Covered/Secured with Dry Gauze & Dry Gauze,Dry Roll Gauze, Gauze & Roll Secured with Gauze,Secured Tape with Tape #20 right [place] -Ulcer Cleansing -Foul Odor after Cleansing -Negative Pressure Wound Therapy -Primary Dressing Applied -Primary Dressing Covered/Secured with -Aquacel Extra #19 Left Lateral LE cluster -Ulcer Cleansing Rinsed/ Rinsed/ Rinsed/ Irrigated with Irrigated with Irrigated with Saline Saline Saline -Foul Odor after Cleansing No -Primary Dressing Applied Aquacel Extra, Aquacel Extra, Fibracol Plus NonAdherent NonAdherent 4x4,NonAdherent Contact Layer Contact Layer Contact Layer -Other Dressing DOUBLE LAYER ABD ADAPTIC/ AQUACEL/ ABD PAD -Primary Dressing Covered/Secured with Dry Gauze & Dry Gauze,Dry Dry Gauze,Dry Roll Gauze, Gauze & Roll Gauze & Roll Secured with Gauze,Secured Gauze,Secured Tape with Tape with Tape -Aquacel Extra 1 2 -Fibracol Plus 4x4 1 #18 Left medial LE cluster -Ulcer Cleansing Rinsed/ Rinsed/ Irrigated with Irrigated with Saline Saline -Foul Odor after Cleansing No -Primary Dressing Applied Aquacel Extra, NonAdherent Fibracol Plus NonAdherent Contact Layer 4x4,NonAdherent Contact Layer Contact Layer -Other Dressing AQUACEL ABD -Primary Dressing Covered/Secured with Dry Gauze & Dry Gauze,Dry Dry Gauze & Roll Gauze, Gauze & Roll Roll Gauze, Secured with Gauze,Secured Secured with Tape with Tape Tape -Aquacel Extra 1 -Fibracol Plus 4x4 1 Left -Compression Wrap Kishore Wrap -Other KISHORE cotton liner kishore Right -Compression Wrap Kishore Wrap -Other KISHORE cotton liner then kishore Treatment Response Procedure Procedure Procedure Tolerated Well Tolerated Well Tolerated Well Pain Scale: 0-10 Numeric Is Patient Pain Free? Yes Yes Yes WC - Visit Discharge Discharge Condition Stable Stable Stable Ambulatory Status Wheelchair Wheelchair Ambulatory, Walker Transportation ECF trans Private Auto Private Auto Medication Reconcilliation completed & No No provided to patient/care provider Clinical Summary of Care Provided Yes Yes Facility Type Group Home Care Facility Orders Sent Yes 01/07/23 11:00 Wound Care Center Nurse 3 #17 right lateral LE cluster -Ulcer Cleansing -Foul Odor after Cleansing -Primary Dressing Applied -Other Dressing -Primary Dressing Covered/Secured with -Aquacel Extra 15.RLE medial -Ulcer Cleansing -Foul Odor after Cleansing -Primary Dressing Applied -Other Dressing -Primary Dressing Covered/Secured with #20 right [place] -Ulcer Cleansing Rinsed/ Irrigated with Saline -Foul Odor after Cleansing No -Negative Pressure Wound Therapy N/A -Primary Dressing Applied Aquacel Extra, NonAdherent Contact Layer -Primary Dressing Covered/Secured with Dry Gauze & Roll Gauze, Secured with Tape -Aquacel Extra 1 #19 Left Lateral LE cluster -Ulcer Cleansing Rinsed/ Irrigated with Saline -Foul Odor after Cleansing No -Primary Dressing Applied Aquacel Extra, NonAdherent Contact Layer -Other Dressing -Primary Dressing Covered/Secured with Dry Gauze & Roll Gauze, Secured with Tape -Aquacel Extra 0 -Fibracol Plus 4x4 #18 Left medial LE cluster -Ulcer Cleansing Rinsed/ Irrigated with Saline -Foul Odor after Cleansing No -Primary Dressing Applied Aquacel Extra, NonAdherent Contact Layer -Other Dressing -Primary Dressing Covered/Secured with Dry Gauze & Roll Gauze, Secured with Tape -Aquacel Extra 0 -Fibracol Plus 4x4 Left -Compression Wrap -Other Right -Compression Wrap -Other Treatment Response Pain Scale: 0-10 Numeric Is Patient Pain Free? Yes WC - Visit Discharge Discharge Condition Ambulatory Status Transportation Medication Reconcilliation completed & provided to patient/care provider Clinical Summary of Care Provided Facility Type Orders Sent Additional Wound Wound debrided: Right lateral LE Laterality: Right Type of Debridement: Excisional debridement Anesthesia Used: 4% Lidocaine Solution Depth: Down to and including healthy tissue and in the subcutaneous layer Percentage of wound debrided: 100 Instrument Used: 5mm curette Tissue Removed: Yellow slough, devitalized tissue Severity: Fat Layer Exposed Amount of bleeding with debridement: Mild Bleeding Controlled with: Compression and gauze Patient tolerated procedure: Patient tolerated procedure well Additional Wound Wound debrided: left medial LE cluster Laterality: Left Type of Debridement: Excisional debridement Anesthesia Used: 4% Lidocaine Solution and 5% Lidocaine Gel Depth: Down to and including healthy tissue and in the subcutaneous layer Percentage of wound debrided: 100 Instrument Used: 5mm curette Tissue Removed: yellow slough, devitalized tissue Severity: Fat Layer Exposed Amount of bleeding with debridement: Mild Bleeding Controlled with: Compression and gauze Patient tolerated procedure: Patient tolerated procedure well Assessment/Plan Assessment/Plan (1) Ulcer of right lower extremity with fat layer exposed: CODE(S): L97.912 - Non-pressure chronic ulcer of unspecified part of rightlower leg with fat layer exposed (2) Ulcer of left lower extremity with fat layer exposed: CODE(S): L97.922 - Non-pressure chronic ulcer of unspecified part of left lower leg with fat layer exposed (3) Venous insufficiency: CODE(S): I87.2 - Venous insufficiency (chronic) (peripheral) (4) Edema: CODE(S): R60.9 - Edema, unspecified QUALIFIERS: Edema type: unspecified Qualified Code(s): R60.9 - Edema, unspecified (5) History of CVA (cerebrovascular accident): CODE(S): Z86.73 - Personal history of transient ischemic attack (TIA), andcerebral infarction without residual deficits (6) Venous ulcer of left lower extremity with varicose veins: CODE(S): I83.029 - Varicose veins of left lower extremity with ulcer of unspecified site (7) Venous ulcer of both lower extremities with varicose veins: CODE(S): I83.019 - Varicose veins of right lower extremity with ulcer of unspecified site; I83.029 - Varicose veins of left lower extremity with ulcer ofunspecified site (8) Venous ulcers of both lower extremities: CODE(S): I87.2 - Venous insufficiency (chronic) (peripheral) (9) Lymphedema: CODE(S): I89.0 - Lymphedema, not elsewhere classified PLAN: Plan Debridement performed today in clinic as annotated above. At home wound-care instructions: Apply Aquacel Extra and adaptic to ulcers, compression with KISHORE bandages and increase lasix to 2 tabs BID. Off-loading: The patient was instructed to avoid pressure and friction on the affected areas. Reposition every 2 hours at minimum. Avoid prolonged standing and/or dangling of legs. When seated, feet should be elevated at chest level. Frequent ambulation is encouraged. Encouraged lymphedema pump use. Diet: Patient encouraged to increase protein intake while taking caution to avoid high carbohydrate and/or sugar intake. Labs/cultures/imaging: Follow-up: Return in 1 week for wound care follow up. Return sooner or report tothe emergency room should symptoms worsen, or new symptoms arise. Note: [employer] speech recognition hair tinter software was used to create portions of this document. Sound-alike and misspelled words, as well as other hair tinter errors may be contained in the documentation. 01/07/23 1413 <Electronically signed by Patricia Garcia DO> Cosigner Signature (if applicable): CC: ~ Signed [facility] Work Phone: [phone] Garcia [facility] December 24, 2022 2:18pm Note Date/Time December 24, 2022 2:1 8pm [facility] [address] [place] [address] Progress Note - Wound Care 12/24/22 1405 MR#: [id number] Acct: [id number] Name: ESTEBAN URBINA Rep #:[id number] : 1955 67 From: Patricia Garcia DO PCP: Dr. Patricia Garcia DO Status:REG RCR Location: History of Present Illness Date of Service: 12/24/22 Chief Complaint: venous ulcers of bilateral lower extremities History of Wound: Mauricio is a 67 yo gentleman who is here today for evaluation of ulcers to to his bilateral lower legs. [facility]. The left LE ulcer started after he developed increased swelling and blisters of left leg in October and the right leg started sometime at the end of October. He was seen at PCP's office a culture was taken and it was resistant to several antibiotics. He was treated initially with Levaquin but had myalgias and then was treated with doxycycline which he finished 2 days ago. He denies improvementand is having swelling to his left calf and thigh. He has been having swelling to both lower extremities for many years and it has worsened over the last few months. He has not been compliant with compression. He has had increased pain especially in the left leg. He has clear yellow drainage and redness without odor or warmth. He is anti-coagulated on coumadin. He has been washing with Dial soap and witch ifrah. He had been using Collagen at times and using Calcium Alginate and covering with ABD pads during October. He was treated with 3M compression and Aquacel Ag. He was referred to the wound center for ongoing treatment. His ulcers have moderate to heavy drainage. He was recently hospitalized for cellulitis and edema for the last 10 days. Discharged on 12/09/22 and is currently in the Skilled section of [facility]. He returned to his assisted living apartment on Tuesday12/21/22. Subjective Subjective He was in the hospital from 11/30/22 until 12/09/22 for treatment of cellulitis andedema. He underwent treatment with Vancomycin and IV lasix and compression. He tolerated treatment this week with adaptic, Aquacel and gauze and KISHORE bandages with improvement in size of ulcers. Objective Data Objective Data Vital Signs: Vital Signs Temp Pulse Resp BP O2 Del Method 97 F L 74 18 107/58 L Room Air 12/24/22 10:59 12/24/22 10:59 12/24/22 10:59 12/24/22 10:59 12/17/22 09:35 Oxygen Delivery Method Room Air Physical Exam Const alert, oriented x3 and no apparent distress General Appearance: cooperative and comfortable HEENT normocephalic and head/scalp atraumatic Lymph Lymphatic: lymphedema moderate Resp normal respiratory effort Effort and Inspection: able to speak in complete sentences Cardio regular rate and regular rhythm Extremity General Extremity: edema bilateral lower extremity Details: severe Skin Wounds: wounds noted Wound Narrative: as in clinical panel Psych mental status grossly normal, thought process normal, cooperative and affect normal Debridement Note Debridement Note Wound debrided: Left lateral LE cluster Laterality: Left Type of Debridement: Excisional debridement Anesthesia Used: 4% Lidocaine Solution Depth: Down to and including healthy tissue and in the subcutaneous layer Percentage of wound debrided: 100 Instrument Used: 5mm curette Tissue Removed: Yellow slough, devitalized tissue Severity: Fat Layer Exposed Amount of bleeding with debridement: Mild Bleeding Controlled with: Compression and gauze Patient tolerated procedure: Patient tolerated procedure well Post-Debridement Measurements and Additional Note: Post-Debridement Measurements/Treatment WC - Nurse 1 - General Ulcer Assessment Start: 12/10/22 09:38 Freq: Status: Active Protocol: ONDINA Activity Type Activity Date Activity User E-sign Co-sign Detail Recorded Client Recorded Date Recorded By Document 12/10/22 09:39 DL [id number] 12/10/22 09:51 DL Document 12/17/22 09:35 BMF [id number] 12/17/22 09:48 BMF Document 12/24/22 10:59 RB [id number] 12/24/22 11:25 RB Edit Result 12/24/22 10:59 RB (1) [id number] 12/24/22 11:53 RB (1) Pulse Rate (60-100) => 74 Blood Pressure (90/60-120/80) => 107/58 L Blood Pressure Mean (mm Hg) => 74 12/10/22 12/17/22 12/24/22 09:39 09:35 10:59 - Today's Visit Information Type of service Follow-up Visit Follow-up Visit Follow-up Visit (Physician/APPLICATIONS SPECIALIST (Physician/APPLICATIONS SPECIALIST (Physician/APPLICATIONS SPECIALIST ) ) ) Arrival Mode Wheelchair Wheelchair Ambulatory, Walker Transfer Assistance Manual Other Manual Transfer Assist (Other) x1 2 min assist Patient Identification Verified (Name & Yes Yes Yes ) Patient Requires Transmission-Based No No No Precautions Vital Signs Temperature (97.8 F-99.1 F) 97 F L 96.7 F L 97 F L Temperature Source Temporal Temporal Temporal Pulse Rate (60-100) 85 75 74 Pulse Location Monitor Monitor Monitor Respiratory Rate (12-18) 22 H 16 18 Respiratory rate source Observation Observation Oxygen Delivery Method Room Air Blood Pressure (90/60-120/80) 117/79 149/87 H 107/58 L Blood Pressure Mean (mm Hg) 91 107 74 Source Monitor Monitor Monitor Position Sitting Sitting Blood Pressure Location Right Forearm Left Arm History Since Last Visit- (Skip if this is Patient's initial visit) Have you changed medications since your No No No last visit? Any new allergies or adverse reactions No No No Had a fall/change in ADL's that may No No No increase risk of falls Signs or symptoms of abuse and/or No No No neglect since last visit Have you been in the hospital since your No No last visit? Has dressing in place as prescribed Yes Yes Yes Has compression in place as prescribed Yes Yes Yes Has offloadiing in place as prescribed N/A N/A No Experienced any changes in pain level or No No management Left Footwear Slipper Regular Shoe Right Footwear Slipper Regular Shoe Pain Scale: 0-10 Numeric Is Patient Pain Free? Yes Yes No bilat LE -Description Aching -Intensity 6 -Duration (hours) Acute -Pain Behavior Guarding -Pain Aggravating Factors Exercise/ Activity -Alleviating Factors/Interventions Medication WC - Nurse 1 - General Ulcer Measurement Start: 12/10/22 09:38 Freq: Status: Active Protocol: Activity Type Activity Date Activity User E-sign Co-sign Detail Recorded Client Recorded Date Recorded By Document 12/10/22 09:39 DL [id number] 12/10/22 09:51 DL Document 12/17/22 09:35 BMF [id number] 12/17/22 09:48 BMF Document 12/24/22 10:59 RB [id number] 12/24/22 11:25 RB 12/10/22 12/17/22 12/24/22 09:39 09:35 10:59 Wound Center Nurse 1 #17 right lateral LE cluster -Combined with other wound No No -Current Size (cm) - Length 3 3.8 0.1 -Current Size (cm) - Width 5.1 5 0.1 -Current Size (cm) - Depth 0.1 0.1 0.1 -Total Square Cm 15.3 19.0 0.01 -Photo Taken No No Yes -Epithelialization Small 1-33% -Tunneling No No -Undermining/Tunneling No No -Circular Undermining No No -Exudate Amt Medium Small Medium -Exudate Type Serosanguineous Serosanguineous Serosanguineous -Wound Margin Indistinct, Non Flat & Intact Distinct, -Visible Outline Attached -Granulation Amt Large (67-100%) Medium (34-66%) Medium (34-66%) -Granulation Quality Red Red Lingle -Slough/Fibrin Yes Yes -Necrosis Amt None Present (0 Medium (34-66%) Medium (34-66%) %) -Necrotic Tissue Type Adherent Slough Adherent Slough -Structure Exposed N/A N/A -Texture (Marie-wound Skin Appearance) Localized Edema Assessed, Assessed ,Scarring Scarring -Moisture (Marie-wound Skin Appearance) Dry/Scaly Assessed,Dry/ Assessed Scaly -Color (Marie-wound Skin Appearance) Ecchymosis, Assessed, Hemosiderin Erythema, Hemosiderin Staining Hemosiderin Staining Staining -Temperature (Marie-wound Skin No Abnormality No Abnormality No Abnormality Appearance) (Pt Warm) (Pt Warm) (Pt Warm) -Tenderness on Palpation (Marie-wound No No No Skin Appearance) -Ulcer Cleansing Soap and Water Soap and Water Wound Cleanser -Foul Odor after Cleansing No No No -Anesthetic Used 5% Lidocaine 4% Lidocaine 5% Lidocaine Gel Solution Gel 16. LLE cluster -Current Size (cm) - Length 29.5 -Current Size (cm) - Width 16 -Current Size (cm) - Depth 0.1 -Total Square Cm 472.0 -Photo Taken No -Exudate Amt Medium -Exudate Type Serosanguineous -Wound Margin Indistinct, Non -Visible -Granulation Quality Red -Necrosis Amt Small (1-33%) -Necrotic Tissue Type Adherent Slough -Structure Exposed N/A -Texture (Marie-wound Skin Appearance) Localized Edema ,Scarring -Moisture (Marie-wound Skin Appearance) Dry/Scaly -Color (Marie-wound Skin Appearance) Ecchymosis, Erythema, Hemosiderin Staining -Temperature (Marie-wound Skin No Abnormality Appearance) (Pt Warm) -Tenderness on Palpation (Marie-wound No Skin Appearance) -Foul Odor after Cleansing No -Anesthetic Used 4% Lidocaine Solution 15.RLE medial -Combined with other wound No -Current Size (cm) - Length 5 0.1 -Current Size (cm) - Width 6 0.1 -Current Size (cm) - Depth 0.1 0.1 -Total Square Cm 30 0.01 -Photo Taken No -Epithelialization Large 67-100% -Tunneling No -Undermining/Tunneling No -Circular Undermining No -Exudate Amt Medium None Present -Exudate Type Serosanguineous -Wound Margin Indistinct, Non -Visible -Granulation Amt Medium (34-66%) -Granulation Quality Red -Necrosis Amt Medium (34-66%) -Necrotic Tissue Type Adherent Slough -Structure Exposed N/A -Texture (Marie-wound Skin Appearance) Localized Edema Assessed ,Scarring -Moisture (Marie-wound Skin Appearance) Dry/Scaly Assessed,Dry/ Scaly -Color (Marie-wound Skin Appearance) Ecchymosis, Assessed, Erythema, Hemosiderin Hemosiderin Staining Staining -Temperature (Marie-wound Skin No Abnormality Appearance) (Pt Warm) -Tenderness on Palpation (Marie-wound No No Skin Appearance) -Ulcer Cleansing Soap and Water Soap and Water -Foul Odor after Cleansing No No -Anesthetic Used 4% Lidocaine 4% Lidocaine Solution Solution #19 Left Lateral LE cluster -Combined with other wound No No -Current Size (cm) - Length 17 1.5 -Current Size (cm) - Width 12.5 1.4 -Current Size (cm) - Depth 0.1 0.1 -Total Square Cm 212.5 2.10 -Photo Taken No Yes -Epithelialization Small 1-33% -Tunneling No No -Undermining/Tunneling No No -Circular Undermining No No -Exudate Amt Medium Large -Exudate Type Serosanguineous Serosanguineous -Wound Margin Distinct, Distinct, Outline Outline Attached Attached -Granulation Amt Medium (34-66%) Medium (34-66%) -Granulation Quality Red Lingle -Slough/Fibrin Yes Yes -Necrosis Amt Medium (34-66%) Medium (34-66%) -Necrotic Tissue Type Adherent Slough Adherent Slough -Structure Exposed N/A -Texture (Marie-wound Skin Appearance) Assessed, Assessed Scarring -Moisture (Marie-wound Skin Appearance) Assessed,Dry/ Assessed Scaly -Color (Marie-wound Skin Appearance) Assessed, Hemosiderin Hemosiderin Staining Staining -Temperature (Marie-wound Skin No Abnormality No Abnormality Appearance) (Pt Warm) (Pt Warm) -Tenderness on Palpation (Marie-wound No No Skin Appearance) -Ulcer Cleansing Soap and Water Wound Cleanser -Foul Odor after Cleansing No No -Anesthetic Used 4% Lidocaine 5% Lidocaine Solution Gel #18 Left medial LE cluster -Combined with other wound No No -Current Size (cm) - Length 17 5.5 -Current Size (cm) - Width 16.8 6 -Current Size (cm) - Depth 0.1 0.1 -Total Square Cm 285.6 33.0 -Photo Taken No Yes -Epithelialization Small 1-33% -Tunneling No No -Undermining/Tunneling No No -Circular Undermining No No -Exudate Amt Medium Medium -Exudate Type Serosanguineous Serosanguineous -Wound Margin Distinct, Distinct, Outline Outline Attached Attached -Granulation Amt Large (67-100%) Medium (34-66%) -Granulation Quality Red Lingle -Slough/Fibrin Yes Yes -Necrosis Amt Small (1-33%) Medium (34-66%) -Necrotic Tissue Type Adherent Slough Adherent Slough -Structure Exposed N/A -Texture (Marie-wound Skin Appearance) Assessed, Assessed Scarring -Moisture (Marie-wound Skin Appearance) Assessed,Dry/ Assessed Scaly -Color (Marie-wound Skin Appearance) Assessed, Hemosiderin Hemosiderin Staining Staining -Temperature (Marie-wound Skin No Abnormality No Abnormality Appearance) (Pt Warm) (Pt Warm) -Tenderness on Palpation (Marie-wound No No Skin Appearance) -Ulcer Cleansing Soap and Water Wound Cleanser -Foul Odor after Cleansing No No -Anesthetic Used 4% Lidocaine 5% Lidocaine Solution Gel Lower Limb Edema Present Yes Yes Right Calf (cm) 43.5 40 47.5 Right Ankle (cm) 27 27 28 Left Calf (cm) 43.5 43 46 Left Ankle (cm) 29 26.5 29 WC - Nurse 2 - General Ulcer CM Notes Start: 12/10/22 09:38 Freq: Status: Active Protocol: Activity Type Activity Date Activity User E-sign Co-sign Detail Recorded Client Recorded Date Recorded By Document 12/10/22 10:18 MW [id number] 12/10/22 11:06 MW Document 12/17/22 09:58 BMF [id number] 12/17/22 10:35 BMF Edit Result 12/17/22 09:58 BMF (1) [id number] 12/17/22 12:48 PL Document 12/24/22 11:41 MW [id number] 12/24/22 12:01 MW (1) #17 right lateral LE cluster - Debridement - Subq, 1st 20sq cm No => Yes - Debridement, SubQ, ea addt'l 20sq cm => 11 or part thereof 12/10/22 12/17/22 12/24/22 10:18 09:58 11:41 Wound Center Nurse 2 #17 right lateral LE cluster -Time 10:18 10:05 11:43 -Correct Patient Yes Yes Yes -Correct Side, Site, Position Yes Yes Yes -Correct Procedure Yes Yes Yes -Procedure Performed Yes Yes No -Type of Procedure Debridement Debridement -Clinical Debridement Subcutaneous Subcutaneous -Tissue Removed Subcutaneous Subcutaneous -Post Debridement (cm) - Length 2.5 0.5 -Post Debridement (cm) - Width 5.0 2.9 -Post Debridement (cm) - Depth 0.1 0.1 -Total Square (Post) (cm) 12.50 1.45 -Area of Debridement (cm) - Length 2.5 0.5 -Area of Debridement (cm) - Width 5.0 2.9 -Total Square (Area) (cm) 12.50 1.45 -Tunneling No No No -Undermining/Tunneling No No No -Circular Undermining No No No -Wound/Ulcer Outcome Not Healed Not Healed Healed- Epithelialized -Ulcer Cleansing Rinsed/ Rinsed/ Irrigated with Irrigated with Saline Saline -Foul Odor after Cleansing No No -Bioengineered Tissue No No -Bleeding Controlled with Pressure Pressure -Treatment Response Procedure Procedure Tolerated Well Tolerated Well -Offloading No -Assistive Device(s) Wheelchair -Debridement - Subq, 1st 20sq cm Yes Yes -Debridement, SubQ, ea addt'l 20sq cm 16 11 or part thereof 16. LLE cluster -Time 10:20 -Correct Patient Yes -Correct Side, Site, Position Yes -Correct Procedure Yes -Procedure Performed No -Tunneling No -Undermining/Tunneling No -Circular Undermining No -Wound/Ulcer Outcome Converted 15.RLE medial -Time 10:25 10:06 -Correct Patient Yes Yes -Correct Side, Site, Position Yes Yes -Correct Procedure Yes Yes -Procedure Performed Yes Yes -Type of Procedure Debridement Debridement -Clinical Debridement Subcutaneous Subcutaneous -Tissue Removed Subcutaneous Subcutaneous -Post Debridement (cm) - Length 1.0 0 -Post Debridement (cm) - Width 0.8 0 -Post Debridement (cm) - Depth 0.1 0 -Total Square (Post) (cm) 0.80 0 -Area of Debridement (cm) - Length 1.0 0 -Area of Debridement (cm) - Width 0.8 0 -Total Square (Area) (cm) 0.80 0 -Tunneling No No -Undermining/Tunneling No No -Circular Undermining No No -Wound/Ulcer Outcome Not Healed Healed- Epithelialized -Ulcer Cleansing Rinsed/ Rinsed/ Irrigated with Irrigated with Saline Saline -Foul Odor after Cleansing No No -Bioengineered Tissue No No -Bleeding Controlled with Pressure Pressure -Treatment Response Procedure Procedure Tolerated Well Tolerated Well -Offloading No -Assistive Device(s) Wheelchair -Debridement - Subq, 1st 20sq cm No No #19 Left Lateral LE cluster -Time 10:56 10:01 11:43 -Correct Patient Yes Yes Yes -Correct Side, Site, Position Yes Yes Yes -Correct Procedure Yes Yes Yes -Procedure Performed Yes Yes Yes -Type of Procedure Debridement Debridement Debridement -Clinical Debridement Subcutaneous Subcutaneous Subcutaneous -Tissue Removed Subcutaneous Subcutaneous Subcutaneous -Post Debridement (cm) - Length 10.5 10 1.7 -Post Debridement (cm) - Width 8.5 7 1.4 -Post Debridement (cm) - Depth 0.1 0.1 0.1 -Total Square (Post) (cm) 89.25 70 2.38 -Area of Debridement (cm) - Length 10.5 10 1.7 -Area of Debridement (cm) - Width 8.5 7 1.4 -Total Square (Area) (cm) 89.25 70 2.38 -Tunneling No No No -Undermining/Tunneling No No No -Circular Undermining No No No -Wound/Ulcer Outcome Not Healed Not Healed Not Healed -Ulcer Cleansing Rinsed/ Rinsed/ Rinsed/ Irrigated with Irrigated with Irrigated with Saline Saline Saline -Foul Odor after Cleansing No No No -Bioengineered Tissue No No No -Bleeding Controlled with Pressure Pressure -Treatment Response Procedure Procedure Procedure Tolerated Well Tolerated Well Tolerated Well -Offloading No No -Assistive Device(s) Wheelchair -Debridement - Subq, 1st 20sq cm No No Yes -Debridement, SubQ, ea addt'l 20sq cm 3 or part thereof #18 Left medial LE cluster -Time 10:55 10:02 11:43 -Correct Patient Yes Yes Yes -Correct Side, Site, Position Yes Yes Yes -Correct Procedure Yes Yes Yes -Procedure Performed Yes Yes Yes -Type of Procedure Debridement Debridement Debridement -Clinical Debridement Subcutaneous Subcutaneous Subcutaneous -Tissue Removed Subcutaneous Subcutaneous Subcutaneous -Post Debridement (cm) - Length 17.0 14 7.0 -Post Debridement (cm) - Width 13.0 11 8.5 -Post Debridement (cm) - Depth 0.1 0.1 0.1 -Total Square (Post) (cm) 221.00 154 59.50 -Area of Debridement (cm) - Length 17.0 14 7.0 -Area of Debridement (cm) - Width 13.0 11 8.5 -Total Square (Area) (cm) 221.00 154 59.50 -Tunneling No No No -Undermining/Tunneling No No No -Circular Undermining No No No -Wound/Ulcer Outcome Not Healed Not Healed Not Healed -Ulcer Cleansing Rinsed/ Rinsed/ Rinsed/ Irrigated with Irrigated with Irrigated with Saline Saline Saline -Foul Odor after Cleansing No No No -Bioengineered Tissue No No No -Bleeding Controlled with Pressure Pressure -Treatment Response Procedure Procedure Tolerated Well Tolerated Well -Offloading No No -Assistive Device(s) Wheelchair -Debridement - Subq, 1st 20sq cm No No No Pain Scale: 0-10 Numeric Is Patient Pain Free? Yes Yes Yes WC - Nurse 3 - General Ulcer D/C NN Start: 12/10/22 09:38 Freq: Status: Active Protocol: Activity Type Activity Date Activity User E-sign Co-sign Detail Recorded Client Recorded Date Recorded By Document 12/10/22 11:09 DL [id number] 12/10/22 11:12 DL Document 12/17/22 11:30 RB [id number] 12/17/22 11:34 RB Document 12/24/22 12:22 RB [id number] 12/24/22 12:24 RB 12/10/22 12/17/22 12/24/22 11:09 11:30 12:22 Wound Care Center Nurse 3 #17 right lateral LE cluster -Ulcer Cleansing Rinsed/ Irrigated with Saline -Foul Odor after Cleansing No -Primary Dressing Applied Aquacel Extra, NonAdherent NonAdherent Contact Layer Contact Layer -Other Dressing AQUACEL EXTRA -Primary Dressing Covered/Secured with Dry Gauze & Dry Gauze,Dry Roll Gauze, Gauze & Roll Secured with Gauze,Secured Tape with Tape -Aquacel Extra 1 15.RLE medial -Ulcer Cleansing Rinsed/ Rinsed/ Irrigated with Irrigated with Saline Saline -Foul Odor after Cleansing No -Primary Dressing Applied NonAdherent NonAdherent Contact Layer Contact Layer -Other Dressing aquacel EX AQUACEL EXTRA -Primary Dressing Covered/Secured with Dry Gauze & Dry Gauze,Dry Roll Gauze, Gauze & Roll Secured with Gauze,Secured Tape with Tape #19 Left Lateral LE cluster -Ulcer Cleansing Rinsed/ Rinsed/ Rinsed/ Irrigated with Irrigated with Irrigated with Saline Saline Saline -Foul Odor after Cleansing No -Primary Dressing Applied Aquacel Extra, Aquacel Extra, Fibracol Plus NonAdherent NonAdherent 4x4,NonAdherent Contact Layer Contact Layer Contact Layer -Other Dressing DOUBLE LAYER ABD ADAPTIC/ AQUACEL/ ABD PAD -Primary Dressing Covered/Secured with Dry Gauze & Dry Gauze,Dry Dry Gauze,Dry Roll Gauze, Gauze & Roll Gauze & Roll Secured with Gauze,Secured Gauze,Secured Tape with Tape with Tape -Aquacel Extra 1 2 -Fibracol Plus 4x4 1 #18 Left medial LE cluster -Ulcer Cleansing Rinsed/ Rinsed/ Irrigated with Irrigated with Saline Saline -Foul Odor after Cleansing No -Primary Dressing Applied Aquacel Extra, NonAdherent Fibracol Plus NonAdherent Contact Layer 4x4,NonAdherent Contact Layer Contact Layer -Other Dressing AQUACEL ABD -Primary Dressing Covered/Secured with Dry Gauze & Dry Gauze,Dry Dry Gauze & Roll Gauze, Gauze & Roll Roll Gauze, Secured with Gauze,Secured Secured with Tape with Tape Tape -Aquacel Extra 1 -Fibracol Plus 4x4 1 Left -Compression Wrap Kishore Wrap -Other KISHORE cotton liner kishore Right -Compression Wrap Kishore Wrap -Other KISHORE cotton liner then kishore Treatment Response Procedure Procedure Procedure Tolerated Well Tolerated Well Tolerated Well Pain Scale: 0-10 Numeric Is Patient Pain Free? Yes Yes Yes WC - Visit Discharge Discharge Condition Stable Stable Stable Ambulatory Status Wheelchair Wheelchair Ambulatory, Walker Transportation ECF trans Private Auto Private Auto Medication Reconcilliation completed & No No provided to patient/care provider Clinical Summary of Care Provided Yes Yes Facility Type [facility] Orders Sent Yes Additional Wound Wound debrided: Right lateral LE Laterality: Right Operative Diagnosis: no debridement completed - ulcer healed Additional Wound Wound debrided: left medial LE cluster Laterality: Left Type of Debridement: Excisional debridement Anesthesia Used: 4% Lidocaine Solution and 5% Lidocaine Gel Depth: Down to and including healthy tissue and in the subcutaneous layer Percentage of wound debrided: 100 Instrument Used: 5mm curette Tissue Removed: yellow slough, devitalized tissue Severity: Fat Layer Exposed Amount of bleeding with debridement: Mild Bleeding Controlled with: Compression and gauze Patient tolerated procedure: Patient tolerated procedure well Assessment/Plan Assessment/Plan (1) Ulcer of right lower extremity with fat layer exposed: CODE(S): L97.912 - Non-pressure chronic ulcer of unspecified part of rightlower leg with fat layer exposed (2) Ulcer of left lower extremity with fat layer exposed: CODE(S): L97.922 - Non-pressure chronic ulcer of unspecified part of left lower leg with fat layer exposed (3) Venous insufficiency: CODE(S): I87.2 - Venous insufficiency (chronic) (peripheral) (4) Edema: CODE(S): R60.9 - Edema, unspecified QUALIFIERS: Edema type: unspecified Qualified Code(s): R60.9 - Edema, unspecified (5) History of CVA (cerebrovascular accident): CODE(S): Z86.73 - Personal history of transient ischemic attack (TIA), andcerebral infarction without residual deficits (6) Venous ulcer of left lower extremity with varicose veins: CODE(S): I83.029 - Varicose veins of left lower extremity with ulcer of unspecified site (7) Venous ulcer of both lower extremities with varicose veins: CODE(S): I83.019 - Varicose veins of right lower extremity with ulcer of unspecified site; I83.029 - Varicose veins of left lower extremity with ulcer ofunspecified site (8) Venous ulcers of both lower extremities: CODE(S): I87.2 - Venous insufficiency (chronic) (peripheral) (9) Lymphedema: CODE(S): I89.0 - Lymphedema, not elsewhere classified PLAN: Plan Debridement performed today in clinic as annotated above. At home wound-care instructions: Apply Fibracol and adaptic to ulcers, cotton stockinette wrap with KISHORE bandages. Off-loading: The patient was instructed to avoid pressure and friction on the affected areas. Reposition every 2 hours at minimum. Avoid prolonged standing and/or dangling of legs. When seated, feet should be elevated at chest level. Frequent ambulation is encouraged. Encouraged lymphedema pump use. Diet: Patient encouraged to increase protein intake while taking caution to avoid high carbohydrate and/or sugar intake. Labs/cultures/imaging: Follow-up: Return in 1 week for wound care follow up. Return sooner or report tothe emergency room should symptoms worsen, or new symptoms arise. Note: [employer] speech recognition hair tinter software was used to create portions of this document. Sound-alike and misspelled words, as well as other hair tinter errors may be contained in the documentation. 12/24/22 1418 <Electronically signed by Patricia Garcia DO> Cosigner Signature (if applicable): CC: ~ Signed [facility] Work Phone: [phone] Garcia [facility] December 17, 2022 1:06pm Note Date/Time December 17, 2022 1:0 6pm [facility] [address] [place] [address] Progress Note - Wound Care 12/17/22 1300 MR#: [id number] Acct: [id number] Name: ESTEBAN URBINA Rep #:[id number] : 1955 67 From: Patricia Garcia DO PCP: Dr. Patricia Garcia DO Status:REG RCR Location: History of Present Illness Date of Service: 12/17/22 Chief Complaint: venous ulcers of bilateral lower extremities History of Wound: Mauricio is a 67 yo gentleman who is here today for evaluation of ulcers to to his bilateral lower legs. He has been treated multiple times in thepast at the wound healing center for similar ulcers. The left LE ulcer started after he developed increased swelling and blisters of left leg in October and the right leg started sometime at the end of October. He was seen at PCP's office a culture was taken and it was resistant to several antibiotics. He was treated initially with Levaquin but had myalgias and then was treated with doxycycline which he finished 2 days ago. He denies improvementand is having swelling to his left calf and thigh. He has been having swelling to both lower extremities for many years and it has worsened over the last few months. He has not been compliant with compression. He has had increased pain especially in the left leg. He has clear yellow drainage and redness without odor or warmth. He is anti-coagulated on coumadin. He has been washing with Dial soap and witch ifrah. He had been using Collagen at times and using Calcium Alginate and covering with ABD pads during October. He was treated with 3M compression and Aquacel Ag. He was referred to the wound center for ongoing treatment. His ulcers have moderate to heavy drainage. He was recently hospitalized for cellulitis and edema for the last 10 days. Discharged on 12/09/22 and is currently in the Skilled section of [facility]. He will return to his assisted living apartment on Tuesday12/21/22. Subjective Subjective He was in the hospital from 11/30/22 until 12/09/22 for treatment of cellulitis andedema. He underwent treatment with Vancomycin and IV lasix and compression. He tolerated treatment this week with adaptic, Aquacel and gauze and KISHORE bandages. A wound care nurse did see him on Tuesday and applied Medihoney to hislegs which caused swelling and irritation per the patient. Objective Data Objective Data Vital Signs: Vital Signs Temp Pulse Resp BP O2 Del Method 96.7 F L 75 16 149/87 H Room Air 12/17/22 09:35 12/17/22 09:35 12/17/22 09:35 12/17/22 09:35 12/17/22 09:35 Oxygen Delivery Method Room Air Physical Exam Const alert, oriented x3 and no apparent distress General Appearance: cooperative and comfortable HEENT normocephalic and head/scalp atraumatic Lymph Lymphatic: lymphedema moderate Resp normal respiratory effort Effort and Inspection: able to speak in complete sentences Cardio regular rate and regular rhythm Extremity General Extremity: edema bilateral lower extremity Details: severe Skin Wounds: wounds noted Wound Narrative: as in clinical panel Psych mental status grossly normal, thought process normal, cooperative and affect normal Debridement Note Debridement Note Wound debrided: LLE cluster Laterality: Left Type of Debridement: Excisional debridement Anesthesia Used: 4% Lidocaine Solution Depth: Down to and including healthy tissue and in the subcutaneous layer Percentage of wound debrided: 100 Instrument Used: 5mm curette Tissue Removed: Yellow slough, devitalized tissue Severity: Fat Layer Exposed Amount of bleeding with debridement: Mild Bleeding Controlled with: Compression and gauze Patient tolerated procedure: Patient tolerated procedure well Post-Debridement Measurements and Additional Note: Post-Debridement Measurements/Treatment WC - Nurse 1 - General Ulcer Assessment Start: 12/10/22 09:38 Freq: Status: Active Protocol: ONDINA Activity Type Activity Date Activity User E-sign Co-sign Detail Recorded Client Recorded Date Recorded By Document 12/10/22 09:39 DL [id number] 12/10/22 09:51 DL Document 12/17/22 09:35 BMF [id number] 12/17/22 09:48 [facility] 12/10/22 12/17/22 09:39 09:35 - Today's Visit Information Type of service Follow-up Visit Follow-up Visit (Physician/APPLICATIONS SPECIALIST (Physician/APPLICATIONS SPECIALIST ) ) Arrival Mode Wheelchair Wheelchair Transfer Assistance Manual Other Transfer Assist (Other) x1 2 min assist Patient Identification Verified (Name & Yes Yes ) Patient Requires Transmission-Based No No Precautions Vital Signs Temperature (97.8 F-99.1 F) 97 F L 96.7 F L Temperature Source Temporal Temporal Pulse Rate (60-100) 85 75 Pulse Location Monitor Monitor Respiratory Rate (12-18) 22 H 16 Respiratory rate source Observation Oxygen Delivery Method Room Air Blood Pressure (90/60-120/80) 117/79 149/87 H Blood Pressure Mean (mm Hg) 91 107 Source Monitor Monitor Position Sitting Blood Pressure Location Right Forearm History Since Last Visit- (Skip if this is Patient's initial visit) Have you changed medications since your No No last visit? Any new allergies or adverse reactions No No Had a fall/change in ADL's that may No No increase risk of falls Signs or symptoms of abuse and/or No No neglect since last visit Have you been in the hospital since your No last visit? Has dressing in place as prescribed Yes Yes Has compression in place as prescribed Yes Yes Has offloadiing in place as prescribed N/A N/A Experienced any changes in pain level or No management Left Footwear Slipper Regular Shoe Right Footwear Slipper Regular Shoe Pain Scale: 0-10 Numeric Is Patient Pain Free? Yes Yes - Nurse 1 - General Ulcer Measurement Start: 12/10/22 09:38 Freq: Status: Active Protocol: Activity Type Activity Date Activity User E-sign Co-sign Detail Recorded Client Recorded Date Recorded By Document 12/10/22 09:39 DL [id number] 12/10/22 09:51 DL Document 12/17/22 09:35 [facility] [id number] 12/17/22 09:48 BM 12/10/22 12/17/22 09:39 09:35 Wound Center Nurse 1 16. LLE cluster -Current Size (cm) - Length 29.5 -Current Size (cm) - Width 16 -Current Size (cm) - Depth 0.1 -Total Square Cm 472.0 -Photo Taken No -Exudate Amt Medium -Exudate Type Serosanguineous -Wound Margin Indistinct, Non -Visible -Granulation Quality Red -Necrosis Amt Small (1-33%) -Necrotic Tissue Type Adherent Slough -Structure Exposed N/A -Texture (Marie-wound Skin Appearance) Localized Edema ,Scarring -Moisture (Marie-wound Skin Appearance) Dry/Scaly -Color (Marie-wound Skin Appearance) Ecchymosis, Erythema, Hemosiderin Staining -Temperature (Marie-wound Skin No Abnormality Appearance) (Pt Warm) -Tenderness on Palpation (Marie-wound No Skin Appearance) -Foul Odor after Cleansing No -Anesthetic Used 4% Lidocaine Solution 15.RLE medial -Combined with other wound No -Current Size (cm) - Length 5 0.1 -Current Size (cm) - Width 6 0.1 -Current Size (cm) - Depth 0.1 0.1 -Total Square Cm 30 0.01 -Photo Taken No -Epithelialization Large 67-100% -Tunneling No -Undermining/Tunneling No -Circular Undermining No -Exudate Amt Medium None Present -Exudate Type Serosanguineous -Wound Margin Indistinct, Non -Visible -Granulation Amt Medium (34-66%) -Granulation Quality Red -Necrosis Amt Medium (34-66%) -Necrotic Tissue Type Adherent Slough -Structure Exposed N/A -Texture (Marie-wound Skin Appearance) Localized Edema Assessed ,Scarring -Moisture (Marie-wound Skin Appearance) Dry/Scaly Assessed,Dry/ Scaly -Color (Marie-wound Skin Appearance) Ecchymosis, Assessed, Erythema, Hemosiderin Hemosiderin Staining Staining -Temperature (Marie-wound Skin No Abnormality Appearance) (Pt Warm) -Tenderness on Palpation (Marie-wound No No Skin Appearance) -Ulcer Cleansing Soap and Water Soap and Water -Foul Odor after Cleansing No No -Anesthetic Used 4% Lidocaine 4% Lidocaine Solution Solution #19 Left Lateral LE cluster -Combined with other wound No -Current Size (cm) - Length 17 -Current Size (cm) - Width 12.5 -Current Size (cm) - Depth 0.1 -Total Square Cm 212.5 -Photo Taken No -Epithelialization Small 1-33% -Tunneling No -Undermining/Tunneling No -Circular Undermining No -Exudate Amt Medium -Exudate Type Serosanguineous -Wound Margin Distinct, Outline Attached -Granulation Amt Medium (34-66%) -Granulation Quality Red -Slough/Fibrin Yes -Necrosis Amt Medium (34-66%) -Necrotic Tissue Type Adherent Slough -Texture (Marie-wound Skin Appearance) Assessed, Scarring -Moisture (Marie-wound Skin Appearance) Assessed,Dry/ Scaly -Color (Marie-wound Skin Appearance) Assessed, Hemosiderin Staining -Temperature (Marie-wound Skin No Abnormality Appearance) (Pt Warm) -Tenderness on Palpation (Marie-wound No Skin Appearance) -Ulcer Cleansing Soap and Water -Foul Odor after Cleansing No -Anesthetic Used 4% Lidocaine Solution #18 Left medial LE cluster -Combined with other wound No -Current Size (cm) - Length 17 -Current Size (cm) - Width 16.8 -Current Size (cm) - Depth 0.1 -Total Square Cm 285.6 -Photo Taken No -Epithelialization Small 1-33% -Tunneling No -Undermining/Tunneling No -Circular Undermining No -Exudate Amt Medium -Exudate Type Serosanguineous -Wound Margin Distinct, Outline Attached -Granulation Amt Large (67-100%) -Granulation Quality Red -Slough/Fibrin Yes -Necrosis Amt Small (1-33%) -Necrotic Tissue Type Adherent Slough -Texture (Marie-wound Skin Appearance) Assessed, Scarring -Moisture (Marie-wound Skin Appearance) Assessed,Dry/ Scaly -Color (Marie-wound Skin Appearance) Assessed, Hemosiderin Staining -Temperature (Marie-wound Skin No Abnormality Appearance) (Pt Warm) -Tenderness on Palpation (Marie-wound No Skin Appearance) -Ulcer Cleansing Soap and Water -Foul Odor after Cleansing No -Anesthetic Used 4% Lidocaine Solution #17 right lateral LE cluster -Combined with other wound No -Current Size (cm) - Length 3 3.8 -Current Size (cm) - Width 5.1 5 -Current Size (cm) - Depth 0.1 0.1 -Total Square Cm 15.3 19.0 -Photo Taken No No -Epithelialization Small 1-33% -Tunneling No -Undermining/Tunneling No -Circular Undermining No -Exudate Amt Medium Small -Exudate Type Serosanguineous Serosanguineous -Wound Margin Indistinct, Non Flat & Intact -Visible -Granulation Amt Large (67-100%) Medium (34-66%) -Granulation Quality Red Red -Slough/Fibrin Yes -Necrosis Amt None Present (0 Medium (34-66%) %) -Necrotic Tissue Type Adherent Slough -Structure Exposed N/A -Texture (Marie-wound Skin Appearance) Localized Edema Assessed, ,Scarring Scarring -Moisture (Marie-wound Skin Appearance) Dry/Scaly Assessed,Dry/ Scaly -Color (Marie-wound Skin Appearance) Ecchymosis, Assessed, Erythema, Hemosiderin Hemosiderin Staining Staining -Temperature (Marie-wound Skin No Abnormality No Abnormality Appearance) (Pt Warm) (Pt Warm) -Tenderness on Palpation (Marie-wound No No Skin Appearance) -Ulcer Cleansing Soap and Water Soap and Water -Foul Odor after Cleansing No No -Anesthetic Used 5% Lidocaine 4% Lidocaine Gel Solution Lower Limb Edema Present Yes Right Calf (cm) 43.5 40 Right Ankle (cm) 27 27 Left Calf (cm) 43.5 43 Left Ankle (cm) 29 26.5 WC - Nurse 2 - General Ulcer CM Notes Start: 12/10/22 09:38 Freq: Status: Active Protocol: Activity Type Activity Date Activity User E-sign Co-sign Detail Recorded Client Recorded Date Recorded By Document 12/10/22 10:18 MW [id number] 12/10/22 11:06 MW Document 12/17/22 09:58 BMF [id number] 12/17/22 10:35 BMF Edit Result 12/17/22 09:58 BMF (1) [id number] 12/17/22 12:48 PL (1) #17 right lateral LE cluster - Debridement - Subq, 1st 20sq cm No => Yes - Debridement, SubQ, ea addt'l 20sq cm => 11 or part thereof 12/10/22 12/17/22 10:18 09:58 Wound Center Nurse 2 16. LLE cluster -Time 10:20 -Correct Patient Yes -Correct Side, Site, Position Yes -Correct Procedure Yes -Procedure Performed No -Tunneling No -Undermining/Tunneling No -Circular Undermining No -Wound/Ulcer Outcome Converted 15.RLE medial -Time 10:25 10:06 -Correct Patient Yes Yes -Correct Side, Site, Position Yes Yes -Correct Procedure Yes Yes -Procedure Performed Yes Yes -Type of Procedure Debridement Debridement -Clinical Debridement Subcutaneous Subcutaneous -Tissue Removed Subcutaneous Subcutaneous -Post Debridement (cm) - Length 1.0 0 -Post Debridement (cm) - Width 0.8 0 -Post Debridement (cm) - Depth 0.1 0 -Total Square (Post) (cm) 0.80 0 -Area of Debridement (cm) - Length 1.0 0 -Area of Debridement (cm) - Width 0.8 0 -Total Square (Area) (cm) 0.80 0 -Tunneling No No -Undermining/Tunneling No No -Circular Undermining No No -Wound/Ulcer Outcome Not Healed Healed- Epithelialized -Ulcer Cleansing Rinsed/ Rinsed/ Irrigated with Irrigated with Saline Saline -Foul Odor after Cleansing No No -Bioengineered Tissue No No -Bleeding Controlled with Pressure Pressure -Treatment Response Procedure Procedure Tolerated Well Tolerated Well -Offloading No -Assistive Device(s) Wheelchair -Debridement - Subq, 1st 20sq cm No No #19 Left Lateral LE cluster -Time 10:56 10:01 -Correct Patient Yes Yes -Correct Side, Site, Position Yes Yes -Correct Procedure Yes Yes -Procedure Performed Yes Yes -Type of Procedure Debridement Debridement -Clinical Debridement Subcutaneous Subcutaneous -Tissue Removed Subcutaneous Subcutaneous -Post Debridement (cm) - Length 10.5 10 -Post Debridement (cm) - Width 8.5 7 -Post Debridement (cm) - Depth 0.1 0.1 -Total Square (Post) (cm) 89.25 70 -Area of Debridement (cm) - Length 10.5 10 -Area of Debridement (cm) - Width 8.5 7 -Total Square (Area) (cm) 89.25 70 -Tunneling No No -Undermining/Tunneling No No -Circular Undermining No No -Wound/Ulcer Outcome Not Healed Not Healed -Ulcer Cleansing Rinsed/ Rinsed/ Irrigated with Irrigated with Saline Saline -Foul Odor after Cleansing No No -Bioengineered Tissue No No -Bleeding Controlled with Pressure -Treatment Response Procedure Procedure Tolerated Well Tolerated Well -Offloading No -Assistive Device(s) Wheelchair -Debridement - Subq, 1st 20sq cm No No #18 Left medial LE cluster -Time 10:55 10:02 -Correct Patient Yes Yes -Correct Side, Site, Position Yes Yes -Correct Procedure Yes Yes -Procedure Performed Yes Yes -Type of Procedure Debridement Debridement -Clinical Debridement Subcutaneous Subcutaneous -Tissue Removed Subcutaneous Subcutaneous -Post Debridement (cm) - Length 17.0 14 -Post Debridement (cm) - Width 13.0 11 -Post Debridement (cm) - Depth 0.1 0.1 -Total Square (Post) (cm) 221.00 154 -Area of Debridement (cm) - Length 17.0 14 -Area of Debridement (cm) - Width 13.0 11 -Total Square (Area) (cm) 221.00 154 -Tunneling No No -Undermining/Tunneling No No -Circular Undermining No No -Wound/Ulcer Outcome Not Healed Not Healed -Ulcer Cleansing Rinsed/ Rinsed/ Irrigated with Irrigated with Saline Saline -Foul Odor after Cleansing No No -Bioengineered Tissue No No -Bleeding Controlled with Pressure -Treatment Response Procedure Procedure Tolerated Well Tolerated Well -Offloading No -Assistive Device(s) Wheelchair -Debridement - Subq, 1st 20sq cm No No #17 right lateral LE cluster -Time 10:18 10:05 -Correct Patient Yes Yes -Correct Side, Site, Position Yes Yes -Correct Procedure Yes Yes -Procedure Performed Yes Yes -Type of Procedure Debridement Debridement -Clinical Debridement Subcutaneous Subcutaneous -Tissue Removed Subcutaneous Subcutaneous -Post Debridement (cm) - Length 2.5 0.5 -Post Debridement (cm) - Width 5.0 2.9 -Post Debridement (cm) - Depth 0.1 0.1 -Total Square (Post) (cm) 12.50 1.45 -Area of Debridement (cm) - Length 2.5 0.5 -Area of Debridement (cm) - Width 5.0 2.9 -Total Square (Area) (cm) 12.50 1.45 -Tunneling No No -Undermining/Tunneling No No -Circular Undermining No No -Wound/Ulcer Outcome Not Healed Not Healed -Ulcer Cleansing Rinsed/ Rinsed/ Irrigated with Irrigated with Saline Saline -Foul Odor after Cleansing No No -Bioengineered Tissue No No -Bleeding Controlled with Pressure Pressure -Treatment Response Procedure Procedure Tolerated Well Tolerated Well -Offloading No -Assistive Device(s) Wheelchair -Debridement - Subq, 1st 20sq cm Yes Yes -Debridement, SubQ, ea addt'l 20sq cm 16 11 or part thereof Pain Scale: 0-10 Numeric Is Patient Pain Free? Yes Yes WC - Nurse 3 - General Ulcer D/C NN Start: 12/10/22 09:38 Freq: Status: Active Protocol: Activity Type Activity Date Activity User E-sign Co-sign Detail Recorded Client Recorded Date Recorded By Document 12/10/22 11:09 DL [id number] 12/10/22 11:12 DL Document 12/17/22 11:30 RB [id number] 12/17/22 11:34 RB 12/10/22 12/17/22 11:09 11:30 Wound Care Center Nurse 3 15.RLE medial -Ulcer Cleansing Rinsed/ Rinsed/ Irrigated with Irrigated with Saline Saline -Foul Odor after Cleansing No -Primary Dressing Applied NonAdherent NonAdherent Contact Layer Contact Layer -Other Dressing aquacel EX AQUACEL EXTRA -Primary Dressing Covered/Secured with Dry Gauze & Dry Gauze,Dry Roll Gauze, Gauze & Roll Secured with Gauze,Secured Tape with Tape #19 Left Lateral LE cluster -Ulcer Cleansing Rinsed/ Rinsed/ Irrigated with Irrigated with Saline Saline -Foul Odor after Cleansing No -Primary Dressing Applied Aquacel Extra, Aquacel Extra, NonAdherent NonAdherent Contact Layer Contact Layer -Other Dressing DOUBLE LAYER ADAPTIC/ AQUACEL/ ABD PAD -Primary Dressing Covered/Secured with Dry Gauze & Dry Gauze,Dry Roll Gauze, Gauze & Roll Secured with Gauze,Secured Tape with Tape -Aquacel Extra 1 2 #18 Left medial LE cluster -Ulcer Cleansing Rinsed/ Irrigated with Saline -Foul Odor after Cleansing No -Primary Dressing Applied Aquacel Extra, NonAdherent NonAdherent Contact Layer Contact Layer -Other Dressing AQUACEL -Primary Dressing Covered/Secured with Dry Gauze & Dry Gauze,Dry Roll Gauze, Gauze & Roll Secured with Gauze,Secured Tape with Tape -Aquacel Extra 1 #17 right lateral LE cluster -Ulcer Cleansing Rinsed/ Irrigated with Saline -Foul Odor after Cleansing No -Primary Dressing Applied Aquacel Extra, NonAdherent NonAdherent Contact Layer Contact Layer -Other Dressing AQUACEL EXTRA -Primary Dressing Covered/Secured with Dry Gauze & Dry Gauze,Dry Roll Gauze, Gauze & Roll Secured with Gauze,Secured Tape with Tape -Aquacel Extra 1 Left -Compression Wrap Kishore Wrap -Other KISHORE Right -Compression Wrap Kishore Wrap -Other KISHORE Treatment Response Procedure Procedure Tolerated Well Tolerated Well Pain Scale: 0-10 Numeric Is Patient Pain Free? Yes Yes WC - Visit Discharge Discharge Condition Stable Stable Ambulatory Status Wheelchair Wheelchair Transportation ECF trans Private Auto Medication Reconcilliation completed & No provided to patient/care provider Clinical Summary of Care Provided Yes Facility Type Group Home Care Facility Orders Sent Yes Additional Wound Wound debrided: right lateral LE cluster Laterality: Right Type of Debridement: Selective debridement Anesthesia Used: 4% Lidocaine Solution Depth: Down to and including healthy tissue and in the subcutaneous layer Percentage of wound debrided: 100 Instrument Used: 5mm curette Tissue Removed: Yellow slough, devitalized tissue Severity: Fat Layer Exposed Amount of bleeding with debridement: Mild Bleeding Controlled with: Compression and gauze Patient tolerated procedure: Patient tolerated procedure well Assessment/Plan Assessment/Plan (1) Ulcer of right lower extremity with fat layer exposed: CODE(S): L97.912 - Non-pressure chronic ulcer of unspecified part of rightlower leg with fat layer exposed (2) Ulcer of left lower extremity with fat layer exposed: CODE(S): L97.922 - Non-pressure chronic ulcer of unspecified part of left lower leg with fat layer exposed (3) Venous insufficiency: CODE(S): I87.2 - Venous insufficiency (chronic) (peripheral) (4) Edema: CODE(S): R60.9 - Edema, unspecified QUALIFIERS: Edema type: unspecified Qualified Code(s): R60.9 - Edema, unspecified (5) History of CVA (cerebrovascular accident): CODE(S): Z86.73 - Personal history of transient ischemic attack (TIA), andcerebral infarction without residual deficits (6) Venous ulcer of left lower extremity with varicose veins: CODE(S): I83.029 - Varicose veins of left lower extremity with ulcer of unspecified site (7) Venous ulcer of both lower extremities with varicose veins: CODE(S): I83.019 - Varicose veins of right lower extremity with ulcer of unspecified site; I83.029 - Varicose veins of left lower extremity with ulcer ofunspecified site (8) Venous ulcers of both lower extremities: CODE(S): I87.2 - Venous insufficiency (chronic) (peripheral) (9) Lymphedema: CODE(S): I89.0 - Lymphedema, not elsewhere classified PLAN: Plan Debridement performed today in clinic as annotated above. At home wound-care instructions: Apply adaptic, Aquacel Extra, apply ABD and wrap with gauze and KISHORE bandages. Off-loading: The patient was instructed to avoid pressure and friction on the affected areas. Reposition every 2 hours at minimum. Avoid prolonged standing and/or dangling of legs. When seated, feet should be elevated at chest level. Frequent ambulation is encouraged. Diet: Patient encouraged to increase protein intake while taking caution to avoid high carbohydrate and/or sugar intake. Labs/cultures/imaging: Follow-up: Return in 1 week for wound care follow up. Return sooner or report tothe emergency room should symptoms worsen, or new symptoms arise. Note: [employer] speech recognition hair tinter software was used to create portions of this document. Sound-alike and misspelled words, as well as other hair tinter errors may be contained in the documentation. 12/17/22 1306 <Electronically signed by Patricia Garcia DO> Cosigner Signature (if applicable): CC: ~ Signed [facility] Work Phone: [phone] Garcia [facility] December 10, 2022 2:15pm Note Date/Time December 10, 2022 2:01 pm [facility] [address] [place] [id number] Progress Note - Wound Care 12/10/22 1358 MR#: [id number] Acct: [id number] Name: ESTEBAN URBINA Rep #:[id number] : 1955 67 From: Patricia Garcia DO PCP: Dr. Patricia Garcia DO Status:REG RCR Location: History of Present Illness Date of Service: 12/10/22 Chief Complaint: venous ulcers of bilateral lower extremities History of Wound: Mauricio is a 67 yo gentleman who is here today for evaluation of ulcers to to his bilateral lower legs. He has been treated multiple times in thepa at the wound healing center for similar ulcers. The left LE ulcer started after he developed increased swelling and blisters of left leg in October and the right leg started sometime at the end of October. He was seen at PCP's office a culture was taken and it was resistant to several antibiotics. He was treated initially with Levaquin but had myalgias and then was treated with doxycycline which he finished 2 days ago. He denies improvementand is having swelling to his left calf and thigh. He has been having swelling to both lower extremities for many years and it has worsened over the last few months. He has not been compliant with compression. He has had increased pain especially in the left leg. He has clear yellow drainage and redness without odor or warmth. He is anti-coagulated on coumadin. He has been washing with Dial soap and witch ifrah. He had been using Collagen at times and using Calcium Alginate and covering with ABD pads during October. He was treated with 3M compression and Aquacel Ag. He was referred to the wound center for ongoing treatment. His ulcers have moderate to heavy drainage. He was recently hospitalized for cellulitis and edema for the last 10 days. Discharged on 12/09/22 and is currently in the Skilled section of [facility]. Subjective Subjective He was in the hospital from 11/30/22 until 12/09/22 for treatment of cellulitis andedema. He underwent treatment with Vancomycin and IV lasix and compression. Objective Data Objective Data Vital Signs: Vital Signs Temp Pulse Resp BP 97 F L 85 22 H 117/79 12/10/22 09:39 12/10/22 09:39 12/10/22 09:39 12/10/22 09:39 Physical Exam Const alert, oriented x3 and no apparent distress General Appearance: cooperative and comfortable HEENT normocephalic and head/scalp atraumatic Lymph Lymphatic: lymphedema severe Resp normal respiratory effort Effort and Inspection: able to speak in complete sentences Cardio regular rate and regular rhythm Extremity General Extremity: edema bilateral lower extremity Details: severe Skin Wounds: wounds noted Wound Narrative: as in clinical panel Psych mental status grossly normal, thought process normal, cooperative and affect normal Debridement Note Debridement Note Wound debrided: LLE cluster Laterality: Left Type of Debridement: Excisional debridement Anesthesia Used: 4% Lidocaine Solution Depth: Down to and including healthy tissue and in the subcutaneous layer Percentage of wound debrided: 100 Instrument Used: 5mm curette Tissue Removed: Yellow slough, devitalized tissue Severity: Fat Layer Exposed Amount of bleeding with debridement: Mild Bleeding Controlled with: Compression and gauze Patient tolerated procedure: Patient tolerated procedure well Post-Debridement Measurements and Additional Note: Post-Debridement Measurements/Treatment - Nurse 1 - General Ulcer Assessment Start: 12/10/22 09:38 Freq: Status: Active Protocol: ONDINA Activity Type Activity Date Activity User E-sign Co-sign Detail Recorded Client Recorded Date Recorded By Document 12/10/22 09:39 DL [id number] 12/10/22 09:51 DL 12/10/22 09:39 WC - Today's Visit Information Type of service Follow-up Visit (Physician/APPLICATIONS SPECIALIST ) Arrival Mode Wheelchair Transfer Assistance Manual Transfer Assist (Other) x1 Patient Identification Verified (Name & Yes ) Patient Requires Transmission-Based No Precautions Vital Signs Temperature (97.8 F-99.1 F) 97 F L Temperature Source Temporal Pulse Rate (60-100) 85 Pulse Location Monitor Respiratory Rate (12-18) 22 H Blood Pressure (90/60-120/80) 117/79 Blood Pressure Mean (mm Hg) 91 Source Monitor History Since Last Visit- (Skip if this is Patient's initial visit) Have you changed medications since your No last visit? Any new allergies or adverse reactions No Had a fall/change in ADL's that may No increase risk of falls Signs or symptoms of abuse and/or No neglect since last visit Has dressing in place as prescribed Yes Has compression in place as prescribed Yes Has offloadiing in place as prescribed N/A Experienced any changes in pain level or No management Left Footwear Slipper Right Footwear Slipper Pain Scale: 0-10 Numeric Is Patient Pain Free? Yes - Nurse 1 - General Ulcer Measurement Start: 12/10/22 09:38 Freq: Status: Active Protocol: Activity Type Activity Date Activity User E-sign Co-sign Detail Recorded Client Recorded Date Recorded By Document 12/10/22 09:39 DL [id number] 12/10/22 09:51 DL 12/10/22 09:39 Wound Center Nurse 1 16. LLE cluster -Current Size (cm) - Length 29.5 -Current Size (cm) - Width 16 -Current Size (cm) - Depth 0.1 -Total Square Cm 472.0 -Photo Taken No -Exudate Amt Medium -Exudate Type Serosanguineous -Wound Margin Indistinct, Non -Visible -Granulation Quality Red -Necrosis Amt Small (1-33%) -Necrotic Tissue Type Adherent Slough -Structure Exposed N/A -Texture (Marie-wound Skin Appearance) Localized Edema ,Scarring -Moisture (Marie-wound Skin Appearance) Dry/Scaly -Color (Marie-wound Skin Appearance) Ecchymosis, Erythema, Hemosiderin Staining -Temperature (Marie-wound Skin No Abnormality Appearance) (Pt Warm) -Tenderness on Palpation (Marie-wound No Skin Appearance) -Foul Odor after Cleansing No -Anesthetic Used 4% Lidocaine Solution #17 right lateral LE cluster -Current Size (cm) - Length 3 -Current Size (cm) - Width 5.1 -Current Size (cm) - Depth 0.1 -Total Square Cm 15.3 -Photo Taken No -Exudate Amt Medium -Exudate Type Serosanguineous -Wound Margin Indistinct, Non -Visible -Granulation Amt Large (67-100%) -Granulation Quality Red -Necrosis Amt None Present (0 %) -Structure Exposed N/A -Texture (Marie-wound Skin Appearance) Localized Edema ,Scarring -Moisture (Marie-wound Skin Appearance) Dry/Scaly -Color (Marie-wound Skin Appearance) Ecchymosis, Erythema, Hemosiderin Staining -Temperature (Marie-wound Skin No Abnormality Appearance) (Pt Warm) -Tenderness on Palpation (Marie-wound No Skin Appearance) -Ulcer Cleansing Soap and Water -Foul Odor after Cleansing No -Anesthetic Used 5% Lidocaine Gel 15.RLE medial -Current Size (cm) - Length 5 -Current Size (cm) - Width 6 -Current Size (cm) - Depth 0.1 -Total Square Cm 30 -Photo Taken No -Exudate Amt Medium -Exudate Type Serosanguineous -Wound Margin Indistinct, Non -Visible -Granulation Amt Medium (34-66%) -Granulation Quality Red -Necrosis Amt Medium (34-66%) -Necrotic Tissue Type Adherent Slough -Structure Exposed N/A -Texture (Marie-wound Skin Appearance) Localized Edema ,Scarring -Moisture (Marie-wound Skin Appearance) Dry/Scaly -Color (Marie-wound Skin Appearance) Ecchymosis, Erythema, Hemosiderin Staining -Tenderness on Palpation (Marie-wound No Skin Appearance) -Ulcer Cleansing Soap and Water -Foul Odor after Cleansing No -Anesthetic Used 4% Lidocaine Solution Right Calf (cm) 43.5 Right Ankle (cm) 27 Left Calf (cm) 43.5 Left Ankle (cm) 29 WC - Nurse 2 - General Ulcer CM Notes Start: 12/10/22 09:38 Freq: Status: Active Protocol: Activity Type Activity Date Activity User E-sign Co-sign Detail Recorded Client Recorded Date Recorded By Document 12/10/22 10:18 MW [id number] 12/10/22 11:06 MW 12/10/22 10:18 Wound Center Nurse 2 16. LLE cluster -Time 10:20 -Correct Patient Yes -Correct Side, Site, Position Yes -Correct Procedure Yes -Procedure Performed No -Tunneling No -Undermining/Tunneling No -Circular Undermining No -Wound/Ulcer Outcome Converted #19 Left Lateral LE cluster -Time 10:56 -Correct Patient Yes -Correct Side, Site, Position Yes -Correct Procedure Yes -Procedure Performed Yes -Type of Procedure Debridement -Clinical Debridement Subcutaneous -Tissue Removed Subcutaneous -Post Debridement (cm) - Length 10.5 -Post Debridement (cm) - Width 8.5 -Post Debridement (cm) - Depth 0.1 -Total Square (Post) (cm) 89.25 -Area of Debridement (cm) - Length 10.5 -Area of Debridement (cm) - Width 8.5 -Total Square (Area) (cm) 89.25 -Tunneling No -Undermining/Tunneling No -Circular Undermining No -Wound/Ulcer Outcome Not Healed -Ulcer Cleansing Rinsed/ Irrigated with Saline -Foul Odor after Cleansing No -Bioengineered Tissue No -Bleeding Controlled with Pressure -Treatment Response Procedure Tolerated Well -Offloading No -Debridement - Subq, 1st 20sq cm No #18 Left medial LE cluster -Time 10:55 -Correct Patient Yes -Correct Side, Site, Position Yes -Correct Procedure Yes -Procedure Performed Yes -Type of Procedure Debridement -Clinical Debridement Subcutaneous -Tissue Removed Subcutaneous -Post Debridement (cm) - Length 17.0 -Post Debridement (cm) - Width 13.0 -Post Debridement (cm) - Depth 0.1 -Total Square (Post) (cm) 221.00 -Area of Debridement (cm) - Length 17.0 -Area of Debridement (cm) - Width 13.0 -Total Square (Area) (cm) 221.00 -Tunneling No -Undermining/Tunneling No -Circular Undermining No -Wound/Ulcer Outcome Not Healed -Ulcer Cleansing Rinsed/ Irrigated with Saline -Foul Odor after Cleansing No -Bioengineered Tissue No -Bleeding Controlled with Pressure -Treatment Response Procedure Tolerated Well -Offloading No -Debridement - Subq, 1st 20sq cm No #17 right lateral LE cluster -Time 10:18 -Correct Patient Yes -Correct Side, Site, Position Yes -Correct Procedure Yes -Procedure Performed Yes -Type of Procedure Debridement -Clinical Debridement Subcutaneous -Tissue Removed Subcutaneous -Post Debridement (cm) - Length 2.5 -Post Debridement (cm) - Width 5.0 -Post Debridement (cm) - Depth 0.1 -Total Square (Post) (cm) 12.50 -Area of Debridement (cm) - Length 2.5 -Area of Debridement (cm) - Width 5.0 -Total Square (Area) (cm) 12.50 -Tunneling No -Undermining/Tunneling No -Circular Undermining No -Wound/Ulcer Outcome Not Healed -Ulcer Cleansing Rinsed/ Irrigated with Saline -Foul Odor after Cleansing No -Bioengineered Tissue No -Bleeding Controlled with Pressure -Treatment Response Procedure Tolerated Well -Offloading No -Debridement - Subq, 1st 20sq cm Yes -Debridement, SubQ, ea addt'l 20sq cm 16 or part thereof 15.RLE medial -Time 10:25 -Correct Patient Yes -Correct Side, Site, Position Yes -Correct Procedure Yes -Procedure Performed Yes -Type of Procedure Debridement -Clinical Debridement Subcutaneous -Tissue Removed Subcutaneous -Post Debridement (cm) - Length 1.0 -Post Debridement (cm) - Width 0.8 -Post Debridement (cm) - Depth 0.1 -Total Square (Post) (cm) 0.80 -Area of Debridement (cm) - Length 1.0 -Area of Debridement (cm) - Width 0.8 -Total Square (Area) (cm) 0.80 -Tunneling No -Undermining/Tunneling No -Circular Undermining No -Wound/Ulcer Outcome Not Healed -Ulcer Cleansing Rinsed/ Irrigated with Saline -Foul Odor after Cleansing No -Bioengineered Tissue No -Bleeding Controlled with Pressure -Treatment Response Procedure Tolerated Well -Offloading No -Debridement - Subq, 1st 20sq cm No Pain Scale: 0-10 Numeric Is Patient Pain Free? Yes - Nurse 3 - General Ulcer D/C NN Start: 12/10/22 09:38 Freq: Status: Active Protocol: Activity Type Activity Date Activity User E-sign Co-sign Detail Recorded Client Recorded Date Recorded By Document 12/10/22 11:09 [id number] 12/10/22 11:12 DL 12/10/22 11:09 Wound Care Center Nurse 3 #19 Left Lateral LE cluster -Ulcer Cleansing Rinsed/ Irrigated with Saline -Foul Odor after Cleansing No -Primary Dressing Applied Aquacel Extra, NonAdherent Contact Layer -Primary Dressing Covered/Secured with Dry Gauze & Roll Gauze, Secured with Tape -Aquacel Extra 1 #18 Left medial LE cluster -Ulcer Cleansing Rinsed/ Irrigated with Saline -Foul Odor after Cleansing No -Primary Dressing Applied Aquacel Extra, NonAdherent Contact Layer -Primary Dressing Covered/Secured with Dry Gauze & Roll Gauze, Secured with Tape -Aquacel Extra 1 #17 right lateral LE cluster -Ulcer Cleansing Rinsed/ Irrigated with Saline -Foul Odor after Cleansing No -Primary Dressing Applied Aquacel Extra, NonAdherent Contact Layer -Primary Dressing Covered/Secured with Dry Gauze & Roll Gauze, Secured with Tape -Aquacel Extra 1 15.RLE medial -Ulcer Cleansing Rinsed/ Irrigated with Saline -Foul Odor after Cleansing No -Primary Dressing Applied NonAdherent Contact Layer -Other Dressing aquacel EX -Primary Dressing Covered/Secured with Dry Gauze & Roll Gauze, Secured with Tape Left -Compression Wrap Kishore Wrap Right -Compression Wrap Kishore Wrap Treatment Response Procedure Tolerated Well Pain Scale: 0-10 Numeric Is Patient Pain Free? Yes - Visit Discharge Discharge Condition Stable Ambulatory Status Wheelchair Transportation ECF trans Facility Type [facility] Orders Sent Yes Additional Wound Wound debrided: right medial LE Laterality: Right Type of Debridement: Selective debridement Anesthesia Used: 4% Lidocaine Solution Depth: Down to and including healthy tissue and in the subcutaneous layer Percentage of wound debrided: 100 Instrument Used: 5mm curette Tissue Removed: Yellow slough, devitalized tissue Severity: Fat Layer Exposed Amount of bleeding with debridement: Mild Bleeding Controlled with: Compression and gauze Patient tolerated procedure: Patient tolerated procedure well Assessment/Plan Assessment/Plan (1) Ulcer of right lower extremity with fat layer exposed: CODE(S): L97.912 - Non-pressure chronic ulcer of unspecified part of rightlower leg with fat layer exposed (2) Ulcer of left lower extremity with fat layer exposed: CODE(S): L97.922 - Non-pressure chronic ulcer of unspecified part of left lower leg with fat layer exposed (3) Venous insufficiency: CODE(S): I87.2 - Venous insufficiency (chronic) (peripheral) (4) Edema: CODE(S): R60.9 - Edema, unspecified QUALIFIERS: Edema type: unspecified Qualified Code(s): R60.9 - Edema, unspecified (5) History of CVA (cerebrovascular accident): CODE(S): Z86.73 - Personal history of transient ischemic attack (TIA), andcerebral infarction without residual deficits (6) Venous ulcer of left lower extremity with varicose veins: CODE(S): I83.029 - Varicose veins of left lower extremity with ulcer of unspecified site (7) Venous ulcer of both lower extremities with varicose veins: CODE(S): I83.019 - Varicose veins of right lower extremity with ulcer of unspecified site; I83.029 - Varicose veins of left lower extremity with ulcer ofunspecified site (8) Venous ulcers of both lower extremities: CODE(S): I87.2 - Venous insufficiency (chronic) (peripheral) (9) Lymphedema: CODE(S): I89.0 - Lymphedema, not elsewhere classified PLAN: Plan Debridement performed today in clinic as annotated above. At home wound-care instructions: Apply adaptic, Aquacel Extra, apply ABD and wrap with gauze and KISHORE bandages. Off-loading: The patient was instructed to avoid pressure and friction on the affected areas. Reposition every 2 hours at minimum. Avoid prolonged standing and/or dangling of legs. When seated, feet should be elevated at chest level. Frequent ambulation is encouraged. Diet: Patient encouraged to increase protein intake while taking caution to avoid high carbohydrate and/or sugar intake. Labs/cultures/imaging: Follow-up: Return in 1 week for wound care follow up. Return sooner or report tothe emergency room should symptoms worsen, or new symptoms arise. Note: [employer] speech recognition hair tinter software was used to create portions of this document. Sound-alike and misspelled words, as well as other hair tinter errors may be contained in the documentation. 12/10/22 1415 <Electronically signed by Patricia Garcia DO> Cosigner Signature (if applicable): CC: ~ Signed [facility] Work Phone: [phone] [phone] Cobb [facility] December 08, 2022 2:01pm Note Date/Time December 08, 2022 2:01 pm [facility] Medical Records Department [address] [place], [place] [address] [address] Discharge Summary 12/08/22 1358 MR#: [id number] Acct: [id number] Name: ESTEBAN URBINA Rep #:[id number] : 1955 67 From: Mimi Cobb MD PCP: Dr. Patricia Garcia DO Status:ADM IN Location: [facility] [id number] Providers Date of Admission: 11/30/22 Date of Discharge: 12/08/22 Primary Care Physician: Dr. Patricia Garcia DO Consultations 11/30/22 15:45 Consult: Onc/Wound/sheet rock taper Routine Comment: Reason for Consult:: B/L purulent drainage, cellulitis Consult: Podiatry Routine Consulting Provider: Jason Carranza Reason for Consult: B/L Diffuse cellulitis EMERGENT Consult: No MD Notified: Yes Date Notified: 11/30/22 Time Notified: 13:52 Method of Notification: Text Reason For Visit: FALL, GROSS CELLULITIS AND DRAINAGE Diagnosis Discharge Diagnosis (1) Cellulitis and abscess of left leg: Status: Acute Code(s): L03.116 - Cellulitis of left lower limb; L02.416 - Cutaneous abscess of left lower limb Plan #Bilateral leg cellulitis with abscess of left leg in setting of bilateral lymphedema with venous stasis dermatitis and ulceration #History of CVA in 2009 with left-sided weakness and recent fall #History of VTE #History of seizure disorder -Continue phenytoin #Severe protein calorie malnutrition #Chronic pain Patient reports history of thalamic syndrome and electromagnetic hypersensitivity -Takes methadone #Hypertension Medications at Discharge Home Medications omega-3 fatty acids 500 mg capsule (Fish Oil) 1,000 mg PO DAILY supplement 08/27/15 baclofen 10 mg tablet 10 mg PO .QID PRN Muscle Spasm 04/14/22 methadone 10 mg tablet 10 mg PO Q12H Check with primary doctor 04/14/22 niacin 50 mg tablet 25 mg PO DAILY Check with primary doctor 04/14/22 phenytoin sodium extended 100 mg capsule (Dilantin Extended) 200 mg PO DAILY Check with primary doctor 04/14/22 pregabalin 75 mg capsule (Lyrica) 75 mg PO TID Check with primary doctor 04/14/22 turmeric root extract 500 mg capsule 100 mg PO BID supplement 04/14/22 coenzyme Q10 100 mg capsule (CoQ-10) 100 mg PO QODAY Check with primary doctor 07/02/22 ergocalciferol (vitamin D2) 1,250 mcg (50,000 unit) capsule (Vitamin D2) 1,250 mcg PO WE Check with primary doctor 07/02/22 phenytoin sodium extended 100 mg capsule (Dilantin Extended) 100 mg PO QHS Checkwith primary doctor 07/02/22 furosemide 20 mg tablet (Lasix) 20 mg PO LUNCH 07/05/22 furosemide 40 mg tablet (Lasix) 40 mg PO DAILY 07/05/22 aspirin 81 mg chewable tablet 81 mg PO BREAKFAST #0 tabs 12/08/22 lisinopril 5 mg tablet 10 mg PO DAILY blood pressure #30 tabs 12/08/22 oxycodone 5 mg tablet 5 mg PO Q6H PRN PRN Pain Score 4-10 3 days #20 tabs 12/08/22 warfarin 4 mg tablet (Jantoven) 5 mg PO DAILY Blood thinner #30 tabs 12/08/22 Hospital Course Procedures - (echo, MRI, venous studies) Summary of Care Provided Minutes Spent on Discharge: 40 Hospital Course: 67-year-old male with history of CVA in 2008 with left-sided weakness, venous insufficiency with lower extremity ulcers following with the wound care clinic, and VTE on Coumadin who presented here 11/30/2022 with bilateral leg cellulitis and fall with laceration of the head. Wound care and podiatry consulted. His leg wound grew Pseudomonas and he was on a course of Zosyn through 12/07/2022. Additionally given leg weeping and swelling, though in part chronic, he was temporarily on IV Lasix but echo this admission with EF of 70% with enlarged left atrium and indeterminate diastolic dysfunction and he was switched back to his oral Lasix of 40 in the morning and 20 at lunch. During his admission he did have a stroke alert on 12/06 where he reported some left-sided facial numbness though distribution not classic he did have risk factors and INR was subtherapeutic. CT head with no acute changes, CTA with 70% right internal carotid stenosis. MRI negative for acute stroke. Discussed with vascular physician given the internal carotid stenosis and it was not felt that the stenosis was the cause of his symptoms especially as the distribution was not classic and carotid duplex, aspirin, and outpatient follow-up were recommended. On day of discharge reported facial numbness is much better, legs do still hurt,did not voice any other complaints. Discharged instructions as followed: -He will need to continue wound care of bilateral lower extremities with next dressing change on Tuesday, continue to follow with Dr. Garcia at the wound centerupon discharge -You have had several medications changed during this hospital stay. You are nolonger taking clonidine for blood pressure, please discontinue this. Your lisinopril dose was decreased to 10 mg daily. -Your methadone was held and you were given oxycodone as needed for your pain during this admission, will send with short prescription of oxycodone and will defer to your outpatient provider with regards to resuming methadone -You have been started on a daily aspirin -Your Coumadin was increased to 5 mg daily and you are presently subtherapeutic with an INR of 1.5 on 12/08/2022, recommend checking INR tomorrow with rechecks and adjustment per protocol. 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 Allison, on an outpatient basis due to this narrowing, please call upon discharge to schedule a hospital follow- up appointment -You were started on aspirin due to this narrowing and you have also been continued on Coumadin -Had an enlarged left inguinal lymph node that was 4.81 cm x 1.10 cm, can follow-up for further as an outpatient, may be reactive -Diet recommendations are sodium restricted diet with Xavier twice daily with meals to promote wound healing -Please call your primary care provider's office upon discharge to schedule a hospital follow up within 1 week. -For any concerning signs or symptoms please call 911 or proceed to the nearest emergency department Physical Exam Narrative General: Alert, oriented, no apparent distress HEENT: Atraumatic, normocephalic Eyes: Anicteric, normal conjunctiva, pupils equal round reactive to light, extraocular movements intact Neck: Supple Respiratory: normal respiratory effort Cardiovascular: Regular rate and rhythm GI: Soft, nontender, nondistended Extremities: Legs are wrapped Musculoskeletal: Moving all extremities Neuro: No new overt abnormalities noted Skin: Chronic leg changes Psych: Cooperative Weight / BMI Weight Weight: 112 kg Body Mass Index (BMI) 39.8 ABG / Lab / Microbiology Data Result Diagrams: 12/08/22 05:52 12/08/22 05:52 Laboratory: Laboratory Results - last 24 hr 12/08/22 05:52: PT 17.8 H, INR 1.5 12/08/22 05:52: WBC 5.7, RBC 4.00 L, Hgb 12.8 L, Hct 38.8 L, MCV 97.0 H, MCH 32.0, MCHC 33.0, RDW Std Deviation 49.8 H, RDW Coeff of Checo 14.1, Plt Count 291,MPV 8.6, Immature Gran % (Auto) 1.100 H, Neut % (Auto) 48.4, Lymph % (Auto) 29.2, Perkins % (Auto) 13.4 H, Eos % (Auto) 7.2 H, Baso % (Auto) 0.7, Absolute Neuts (auto) 2.8, Absolute Lymphs (auto) 1.66, Nucleated RBC % 0 12/08/22 05:52: Sodium 138, Potassium 4.0, Chloride 105, Carbon Dioxide 25.0, Anion Gap 8, BUN 26 H, Creatinine 0.64 L, Estim Creat Clear Calc 103.84, Est GFR(MDRD) Af Amer 162, Est GFR (MDRD) Non-Af 134, BUN/Creatinine Ratio 40.8 H, Glucose 90, Calcium 8.7 Microbiology: Microbiology 11/30/22 15:50 Wound - Leg, Left Gram Stain - Final 11/30/22 15:50 Wound - Leg, Left Wound Culture - Final Pseudomonas aeruginosa 11/30/22 15:50 Wound - Leg, Left Anaerobic Culture - Final No anaerobic bacteria isolated. 11/30/22 14:35 Blood Culture (Wb) - Right Hand Blood Culture - Final No growth in 5 days. 11/30/22 14:25 Blood Culture (Wb) - Anticubital Right Blood Culture - Final No growth in 5 days. Radiography Diagnostic Testing: Radiology Impression Echocardiogram 12/06/22 16:51 Interpretation Summary Limited views were obtained. Bubble contrast study negative for right to left interatrial shunt. Ordering Physician: Mimi Cobb Performed By: Paolo Samson RCS D/C Instructions Discharge Diet: - (salt restriction) Discharge Activity: - (Per PT recommendations) Meaningful Use Info Meaningful Use Diagnoses (Choose all that apply): None applicable Discharge Plan Admission Admit Date/Time: 11/30/22 13:15 Primary Reason for Your Visit: Fall, leg wounds Attending Provider: Mimi Cobb Primary Care Provider: Patricia Garcia Consulting Providers: Satya Erazo ; Wei Lucero ; Jason Carranza Instructions Patient Instructions: ED Fall Prevention Additional Instructions / Restrictions: DISCHARGE INSTRUCTIONS PLEASE READ -He will need to continue wound care of bilateral lower extremities with next dressing change on Tuesday, continue to follow with Dr. Garcia at the wound centerupon discharge -You have had several medications changed during this hospital stay. You are nolonger taking clonidine for blood pressure, please discontinue this. Your lisinopril dose was decreased to 10 mg daily. -Your methadone was held and you were given oxycodone as needed for your pain during this admission, will send with short prescription of oxycodone and will defer to your outpatient provider with regards to resuming methadone -You have been started on a daily aspirin -Your Coumadin was increased to 5 mg daily and you are presently subtherapeutic with an INR of 1.5 on 12/08/2022, recommend checking INR tomorrow with rechecks and adjustment per protocol. 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 Allison, on an outpatient basis due to this narrowing, please call upon discharge to schedule a hospital follow- up appointment -You were started on aspirin due to this narrowing and you have also been continued on Coumadin -Had an enlarged left inguinal lymph node that was 4.81 cm x 1.10 cm, can follow-up for further as an outpatient, may be reactive -Diet recommendations are sodium restricted diet with Xavier twice daily with meals to promote wound healing -Please call your primary care provider's office upon discharge to schedule a hospital follow up within 1 week. -For any concerning signs or symptoms please call 911 or proceed to the nearest emergency department Discharge Orders/Prescriptions Prescriptions: New aspirin 81 mg Tablet,Chewable 81 mg PO BREAKFAST Qty: 0 0RF oxycodone 5 mg Tablet 5 mg PO Q6H PRN PRN (Reason: Pain Score 4-10) 3 Days Qty: 20 0RF Continued niacin 50 mg tablet 25 mg PO DAILY Fish Oil 500 MG capsule 1,000 mg PO DAILY turmeric root extract 500 mg capsule 100 mg PO BID baclofen 10 mg tablet 10 mg PO .QID PRN (Reason: Muscle Spasm) ergocalciferol (vitamin D2) [Vitamin D2] 1,250 mcg (50,000 unit) Capsule 1,250 mcg PO WE coenzyme Q10 [CoQ-10] 100 mg Capsule 100 mg PO QODAY furosemide [Lasix] 40 mg Tablet 40 mg PO DAILY furosemide [Lasix] 20 mg Tablet 20 mg PO LUNCH Changed warfarin [Jantoven] 4 mg tablet 5 mg PO DAILY Qty: 30 0RF lisinopril 5 MG tablet 10 mg PO DAILY Qty: 30 0RF Label Comments: blood pressure Held methadone 10 mg tablet 10 mg PO Q12H Hold Instructions: Resume on 12/22/22. Will defer to outpatient provider for dose and timing of resumption of methadone Discontinued warfarin [Jantoven] 5 mg tablet 5 mg PO UD Clonidine Hcl 0.1 MG tablet 1 tab PO BID No Action phenytoin sodium extended [Dilantin Extended] 100 mg capsule 200 mg PO DAILY pregabalin [Lyrica] 75 mg capsule 75 mg PO TID phenytoin sodium extended [Dilantin Extended] 100 mg Capsule 100 mg PO QHS Referrals / Follow Up: Wei Allison MD [Med Staff - Active Staff] - Within 1 Month (Follow up with Dr. Allison, the vascular doctor, for the narrowing of your artery upon discharge. Please call to schedule an appointment) Patricia Garcia DO [Primary Care Provider] - Within 1 Week Disposition Disposition (needs filled in before D/C Order can be placed): [facility] Charges/Coding Visit Charges Inpatient E&M: 09926 Disch Hosp >30min 12/08/22 1401 <Electronically signed by Mimi Cobb MD> Cosigner Signature (if applicable): CC: Dr. Patricia Garcia DO; Dr. Mimi Cobb MD~ Signed [facility] Work Phone: [phone]) 279-892203-01-[address] Cobb [facility] December 08, 2022 1:58pm Note Date/Time December 08, 2022 1:11 pm [facility] Medical Records Department [address] [place] [id number] Transfer to [facility] MR#: [id number] Acct: [id number] Name: ESTEBAN URBINA Rep #:[id number] : 1955 67 From: Mimi Cobb MD PCP: Dr. Patricia Garcia DO Status:ADM IN Certification of patient admission REQUIRED AT TIME OF ADMISSION. I CERTIFY THAT POST-HOSPITAL F SERVICES ARE REQUIRED TO BE GIVEN ON AN IN-PATIENT BASIS BECAUSE OF THE ABOVE NAMED PATIENT'S NEED FOR ALF CARE ON A CONTINUING BASIS FOR THE CONDITION(S) FOR WHICH HE/SHE WAS RECEIVING IN-PATIENT HOSPITAL SERVICES PRIOR TO HIS/HER TRANSFER TO THE [facility]. 12/08/22 1358<Electronically signed by Mimi Cobb MD> Diet Diet Order/Speech Therapy: 12/07/22 06:41 Diet: Cardiac - Heart Healthy Type of Dietary Supplement:: Xavier Is pt able to select menu?: Yes Diet Comments: flavored Xavier w/ breakfast and dinner Routine Orders/Code Status Suppository Type: Dulcolax 10mg Suppository Frequency: Daily PRN Routine Lab Work: INR (Tomorrow then per protocol due to subtherapeutic INR) Code Status: DNRCC-A Wound(s) left lower leg: Wound Type: cluster of stasis ulcers Dressing Change: Aquacel right medial lower leg: Wound Type: Stasis Ulcer Dressing Change: Aquacel right lateral lower leg: Wound Type: Stasis Ulcer Dressing Change: Aquacel laceration above rt eye: Wound Type: Laceration Therapies Physical Therapy: Eval and Treat Occupational Therapy: Eval and Treat Problem/Diagnosis (1) Cellulitis and abscess of left leg: Status: Acute Code(s): L03.116 - Cellulitis of left lower limb; L02.416 - Cutaneous abscess of left lower limb Plan #Bilateral leg cellulitis with abscess of left leg in setting of bilateral lymphedema with venous stasis dermatitis and ulceration #History of CVA in 2009 with left-sided weakness and recent fall #History of VTE #History of seizure disorder -Continue phenytoin #Severe protein calorie malnutrition #Chronic pain Patient reports history of thalamic syndrome and electromagnetic hypersensitivity -Takes methadone #Hypertension 67-year-old male with history of CVA in 2008 with left-sided weakness, venous insufficiency with lower extremity ulcers following with the wound care clinic, and VTE on Coumadin who presented here 11/30/2022 with bilateral leg cellulitis and fall with laceration of the head. Wound care and podiatry consulted. His leg wound grew Pseudomonas and he was on a course of Zosyn through 12/07/2022. Additionally given leg weeping and swelling, though in part chronic, he was temporarily on IV Lasix but echo this admission with EF of 70% with enlarged left atrium and indeterminate diastolic dysfunction and he was switched back to his oral Lasix of 40 in the morning and 20 at lunch. During his admission he did have a stroke alert on 12/06 where he reported some left-sided facial numbness though distribution not classic he did have risk factors and INR was subtherapeutic. CT head with no acute changes, CTA with 70% right internal carotid stenosis. MRI negative for acute stroke. Discussed with vascular physician given the internal carotid stenosis and it was not felt that the stenosis was the cause of his symptoms especially as the distribution was not classic and carotid duplex, aspirin, and outpatient follow-up were recommended. Discharged instructions as followed: -He will need to continue wound care of bilateral lower extremities with next dressing change on Tuesday, continue to follow with Dr. Garcia at the wound centerupon discharge -You have had several medications changed during this hospital stay. You are nolonger taking clonidine for blood pressure, please discontinue this. Your lisinopril dose was decreased to 10 mg daily. -Your methadone was held and you were given oxycodone as needed for your pain during this admission, will send with short prescription of oxycodone and will defer to your outpatient provider with regards to resuming methadone -You have been started on a daily aspirin -Your Coumadin was increased to 5 mg daily and you are presently subtherapeutic with an INR of 1.5 on 12/08/2022, recommend checking INR tomorrow with rechecks and adjustment per protocol. 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 Allison, on an outpatient basis due to this narrowing, please call upon discharge to schedule a hospital follow- up appointment -You were started on aspirin due to this narrowing and you have also been continued on Coumadin -Had an enlarged left inguinal lymph node that was 4.81 cm x 1.10 cm, can follow-up for further as an outpatient, may be reactive -Diet recommendations are sodium restricted diet with Xavier twice daily with meals to promote wound healing -Please call your primary care provider's office upon discharge to schedule a hospital follow up within 1 week. -For any concerning signs or symptoms please call 911 or proceed to the nearest emergency department Allergies/Procedures Done in Hospital Allergies duloxetine [From Cymbalta] Allergy (Verified 11/30/22 08:09) Rash sulfamethoxazole [From Bactrim] Allergy (Verified 11/30/22 08:09) Rash trimethoprim [From Bactrim] Allergy (Verified 11/30/22 08:09) Rash ciprofloxacin [From Cipro] Adverse Reaction (Verified 11/30/22 08:09) PAIN IN FEET ciprofloxacin HCl [From Cipro] Adverse Reaction (Verified 11/30/22 08:09) Rash citalopram Adverse Reaction (Verified 11/30/22 08:09) SUICIDAL THOUGHTS SUICIDAL THOUGHTS gabapentin [From Neurontin] Adverse Reaction (Verified 11/30/22 08:09) EFFECTED VISION AND HEARING FOGGY, IT EFFECTED MY VISION AND MY HEARING hydrochlorothiazide Adverse Reaction (Verified 11/30/22 08:09) DIZZINESS dizziness levetiracetam [From Keppra] Adverse Reaction (Verified 11/30/22 08:09) Other Avtexzl-VFN-OzQ Reductase Inhibitor Adverse Reaction (Verified 11/30/22 08:09) Other SEVERE MUSCLE PAIN tramadol Adverse Reaction (Verified 11/30/22 08:09) Other SEIZURE Procedures: Transthoracic Echo and - (Low extremity venous study with chronic DVT in both legs and an enlarged left inguinal lymph node) Type of Care/Length of Stay Estimated LOS: Convalescent Care Less Than 30 days Type of Care Needed: Skilled Rehab Potential: Good Prognosis: Good Additional Orders/Day of Discharge Day of Discharge: 12/08/22 Dietary and Speech Recommendations Dietitian Recommendations/Changes: will continue sodium restricted diet and Xavier BID w/ meals for wound healing; consider HOME PERFORMANCE CONSULTANT consult pending chewing/swallowing issues w/ new stroke concern Discharge Plan Admission Admit Date/Time: 11/30/22 13:15 Primary Reason for Your Visit: Fall, leg wounds Attending Provider: Mimi Cobb Primary Care Provider: Patricia Garcia Consulting Providers: Satya Erazo ; Wei Lucero ; Jason Carranza Instructions Patient Instructions: ED Fall Prevention Additional Instructions / Restrictions: DISCHARGE INSTRUCTIONS PLEASE READ -He will need to continue wound care of bilateral lower extremities with next dressing change on Tuesday, continue to follow with Dr. Garcia at the wound centerupon discharge -You have had several medications changed during this hospital stay. You are nolonger taking clonidine for blood pressure, please discontinue this. Your lisinopril dose was decreased to 10 mg daily. -Your methadone was held and you were given oxycodone as needed for your pain during this admission, will send with short prescription of oxycodone and will defer to your outpatient provider with regards to resuming methadone -You have been started on a daily aspirin -Your Coumadin was increased to 5 mg daily and you are presently subtherapeutic with an INR of 1.5 on 12/08/2022, recommend checking INR tomorrow with rechecks and adjustment per protocol. 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 Allison, on an outpatient basis due to this narrowing, please call upon discharge to schedule a hospital follow- up appointment -You were started on aspirin due to this narrowing and you have also been continued on Coumadin -Had an enlarged left inguinal lymph node that was 4.81 cm x 1.10 cm, can follow-up for further as an outpatient, may be reactive -Diet recommendations are sodium restricted diet with Xavier twice daily with meals to promote wound healing -Please call your primary care provider's office upon discharge to schedule a hospital follow up within 1 week. -For any concerning signs or symptoms please call 911 or proceed to the nearest emergency department Discharge Orders/Prescriptions Prescriptions: New aspirin 81 mg Tablet,Chewable 81 mg PO BREAKFAST Qty: 0 0RF oxycodone 5 mg Tablet 5 mg PO Q6H PRN PRN (Reason: Pain Score 4-10) 3 Days Qty: 20 0RF Continued niacin 50 mg tablet 25 mg PO DAILY Fish Oil 500 MG capsule 1,000 mg PO DAILY turmeric root extract 500 mg capsule 100 mg PO BID baclofen 10 mg tablet 10 mg PO .QID PRN (Reason: Muscle Spasm) ergocalciferol (vitamin D2) [Vitamin D2] 1,250 mcg (50,000 unit) Capsule 1,250 mcg PO WE coenzyme Q10 [CoQ-10] 100 mg Capsule 100 mg PO QODAY furosemide [Lasix] 40 mg Tablet 40 mg PO DAILY furosemide [Lasix] 20 mg Tablet 20 mg PO LUNCH Changed warfarin [Jantoven] 4 mg tablet 5 mg PO DAILY Qty: 30 0RF lisinopril 5 MG tablet 10 mg PO DAILY Qty: 30 0RF Label Comments: blood pressure Held methadone 10 mg tablet 10 mg PO Q12H Hold Instructions: Resume on 12/22/22. Will defer to outpatient provider for dose and timing of resumption of methadone Discontinued warfarin [Jantoven] 5 mg tablet 5 mg PO UD Clonidine Hcl 0.1 MG tablet 1 tab PO BID No Action phenytoin sodium extended [Dilantin Extended] 100 mg capsule 200 mg PO DAILY pregabalin [Lyrica] 75 mg capsule 75 mg PO TID phenytoin sodium extended [Dilantin Extended] 100 mg Capsule 100 mg PO QHS Referrals / Follow Up: Wei Allison MD [Med Staff - Active Staff] - Within 1 Month (Follow up with Dr. Allison, the vascular doctor, for the narrowing of your artery upon discharge. Please call to schedule an appointment) Patricia Garcia DO [Primary Care Provider] - Within 1 Week Disposition Disposition (needs filled in before D/C Order can be placed): [facility] Facility 12/08/22 2378 <Electronically signed by Mimi Cobb MD> Cosigner Signature (if applicable): CC: DPM Dr. Jason Carranza; Dr. Wei Lucero DO; Dr. Patricia Garcia DO; Dr. Satya Erazo MD ~ [facility] Work Phone: [phone]) 553-579902-28-[address] Cobb [facility] December 07, 2022 6:45pm Note Date/Time December 07, 2022 12:56pm [facility] Medical Records Department [address] [place] [id number] Progress Note - Hospitalist 12/07/22 1256 MR#: [id number] Acct: [id number] Name: URBINAESTEBAN J Rep #:[id number] : 1955 67 From: Mimi Cobb MD PCP: Dr. Patricia Garcia DO Status:ADM IN Location: [place] [address] Reason for Visit Reason for Visit: Diagnoses Unspecified severe protein-calorie malnutrition (11/30/22) Other chronic pain (11/30/22) Venous insufficiency (chronic) (peripheral) (11/30/22) Lymphedema, not elsewhere classified (11/30/22) Cutaneous abscess of left lower limb (11/30/22) Cutaneous abscess of limb, unspecified (11/30/22) Cellulitis of left lower limb (11/30/22) Cellulitis of unspecified part of limb (11/30/22) Non-pressure chronic ulcer of right calf with fat layer exposed (11/30/22) Non-pressure chronic ulcer of left calf with fat layer exposed (11/30/22) Unspecified fall, initial encounter (11/30/22) Subjective Subjective Numbness there but improving in certain areas is somewhat around eyes still, numbness distribution variable, still has pain in legs and has been having difficulty with mobility, willing for SNF placement Objective Data Objective Data Vital Signs: Vital Signs Temp Pulse Resp BP Pulse Ox O2 Del Method 98.0 F 65 14 118/76 97 Room Air 12/07/22 09:00 12/07/22 09:00 12/07/22 09:00 12/07/22 09:00 12/07/22 09:00 12/07/22 09:00 Oxygen Delivery Method Room Air Weight: 111.8 kg Body Mass Index (BMI) 39.7 Intake & Output: Intake and Output for Last 24 Hours 12/05/22 12/06/22 12/07/22 23:59 23:59 23:59 Intake Total 193.75 / 193.75 905 / 905 100 / 100 Output Total 6800 / 6800 1300 / 2300 1300 / 1300 Balance -6606.25 / -6606.25 -395 / -1395 -1200 / -1200 Lab / Micro Data Result Diagrams: 12/07/22 07:00 12/07/22 05:29 Labs: Laboratory Results - last 24 hr 12/06/22 12:29: POC Glucose 127 H 12/06/22 12:55: WBC 6.9, RBC 4.30 L, Hgb 13.9, Hct 42.0, MCV 97.7 H, MCH 32.3 H,MCHC 33.1, RDW Std Deviation 51.1 H, RDW Coeff of Checo 14.2, Plt Count 335, MPV 8.4, Immature Gran % (Auto) 0.900, Neut % (Auto) 65.8, Lymph % (Auto) 13.4 L, Perkins % (Auto) 13.8 H, Eos % (Auto) 5.5 H, Baso % (Auto) 0.6, Absolute Neuts (auto) 4.5, Absolute Lymphs (auto) 0.92, Nucleated RBC % 0 12/06/22 12:55: PT 15.7 H, INR 1.3, APTT 30.0 12/06/22 12:55: Sodium 138, Potassium 3.4 L, Chloride 99, Carbon Dioxide 33.0 H,Anion Gap 6, BUN 25 H, Creatinine 0.75, Estim Creat Clear Calc 88.61, Est GFR (MDRD) Af Amer 133, Est GFR (MDRD) Non-Af 110, BUN/Creatinine Ratio 33.2 H, Glucose 113 H, Calcium 9.1 12/07/22 05:29: WBC Cancelled, Corrected WBC Cancelled, RBC Cancelled, Hgb Cancelled, Hct Cancelled, MCV Cancelled, MCH Cancelled, MCHC Cancelled, RDW Std Deviation Cancelled, RDW Coeff of Checo Cancelled, Plt Count Cancelled, MPV Cancelled, Immature Gran % (Auto) Cancelled, Neut % (Auto) Cancelled, Lymph % (Auto) Cancelled, Perkins % (Auto) Cancelled, Eos % (Auto) Cancelled, Baso % (Auto)Cancelled, Absolute Neuts (auto) Cancelled, Absolute Lymphs (auto) Cancelled, Total Counted Cancelled, Neutrophils % (Manual) Cancelled, Band Neutrophils % Cancelled, Lymphocytes % (Manual) Cancelled, Monocytes % (Manual) Cancelled, Eosinophils % (Manual) Cancelled, Basophils % (Manual) Cancelled, Metamyelocytes% Cancelled, Myelocytes % Cancelled, Promyelocytes % Cancelled, Blast Cells % Cancelled, Plasma Cell % (Manual) Cancelled, Other Cells % Cancelled, Nucleated RBC % Cancelled, Nucleated RBCs/100 WBC Cancelled, Differential Comment Cancelled, Diff Path Review Cancelled, Hypersegmented Neuts Cancelled, Atypical Lymphocytes Cancelled, Reactive Lymphocytes Cancelled, Smudge Cells Cancelled, Toxic Granulation Cancelled, Toxic Vacuolation Cancelled, Dohle Bodies Cancelled, Neva Rods Cancelled, Platelet Estimate Cancelled, Plt Morphology Comment Cancelled, RBC Morphology Cancelled, Polychromasia Cancelled, Hypochromasia Cancelled, Poikilocytosis Cancelled, Basophilic Stippling Cancelled, Anisocytosis Cancelled, Microcytosis Cancelled, Macrocytosis Cancelled, Spherocytes Cancelled, Sickle Cells Cancelled, Target Cells Cancelled, Tear Drop Cells Cancelled, Ovalocytes Cancelled, Stomatocytes Cancelled, Weiss-Gratiot Bodies Cancelled, Elza Cells Cancelled, Bite Cells Cancelled, Crenated Cell Cancelled, Acanthocytes (Spur) Cancelled, Rouleaux Cancelled, Schistocytes Cancelled 12/07/22 05:29: Sodium 138, Potassium 4.2, Chloride 108 H, Carbon Dioxide 23.0, Anion Gap 7, BUN 24 H, Creatinine 0.66 L, Estim Creat Clear Calc 100.69, Est GFR(MDRD) Af Amer 157, Est GFR (MDRD) Non-Af 130, BUN/Creatinine Ratio 36.6 H, Glucose 93, Calcium 8.7, Total Bilirubin 0.20, AST 23, ALT 37, Alkaline Phosphatase 59, Total Protein 6.3 L, Albumin 2.3 L, Globulin 4.0, Albumin/Globulin Ratio 0.6 L, Triglycerides 99, Cholesterol 173, LDL [id number], VLDL Cholesterol 20, HDL Cholesterol 48 12/07/22 05:29: PT 16.7 H, INR 1.4 12/07/22 07:00: WBC 5.4, RBC 4.24 L, Hgb 13.3, Hct 41.2, MCV 97.2 H, MCH 31.4, MCHC 32.3, RDW Std Deviation 49.8 H, RDW Coeff of Checo 14.2, Plt Count 277, MPV 8.6, Immature Gran % (Auto) 1.100 H, Neut % (Auto) 51.7, Lymph % (Auto) 23.3, Perkins % (Auto) 15.6 H, Eos % (Auto) 7.4 H, Baso % (Auto) 0.9, Absolute Neuts (auto) 2.8, Absolute Lymphs (auto) 1.26, Nucleated RBC % 0 Micro: Microbiology 11/30/22 15:50 Wound - Leg, Left Gram Stain - Final 11/30/22 15:50 Wound - Leg, Left Wound Culture - Final Pseudomonas aeruginosa 11/30/22 15:50 Wound - Leg, Left Anaerobic Culture - Final No anaerobic bacteria isolated. 11/30/22 14:35 Blood Culture (Wb) - Right Hand Blood Culture - Final No growth in 5 days. 11/30/22 14:25 Blood Culture (Wb) - Anticubital Right Blood Culture - Final No growth in 5 days. Radiography Diagnostic Testing: Radiology Impression Brain CT 12/06/22 12:17 IMPRESSION: Chronic involutional changes of the brain. Mild degree of mucosal thickening of the ethmoid sinuses. Electronically Signed: Timo Durham MD at 13:10 EST , ADDENDUM: 12/06/22 1321 IMPRESSION: Chronic involutional changes of the brain. Mild degree of mucosal thickening of the ethmoid sinuses. N.B. : The above Results were Read Back by Timo Durham MD to Dr Kleber MD, and understanding confirmed on 12/06/2022 13:14:48 (ET). Electronically Signed: Timo Durham MD at 13:10 EST , Head/Neck CTA 12/06/22 12:17 IMPRESSION: Calcific plaque formation at the origin of the right internal carotid artery causing greater than 70% narrowing. 50-69% narrowing at the origin of left internal carotid artery due to calcific plaque formation. N.B. : The above Results were Read Back by Timo Durham MD to MIMI COBB and understanding confirmed on 12/06/2022 13:21:58 (ET). Electronically Signed: Timo Durham MD at 13:24 EST , ADDENDUM: 12/06/22 1331 IMPRESSION: Calcific plaque formation at the origin of the right internal carotid artery causing greater than 70% narrowing. 50-69% narrowing at the origin of left internal carotid artery due to calcific plaque formation. N.B. : The above Results were Read Back by Timo Durham MD to MIMI COBB and understanding confirmed on 12/06/2022 13:21:58 (ET). Electronically Signed: Timo Duhram MD at 13:24 EST , Brain MRI 12/06/22 18:46 IMPRESSION: 1. No intracranial mass, hemorrhage, or acute territorial infarct. Old right basal ganglia infarct. Electronically Signed: Philip Vazquez MD at 19:42 EST , Physical Exam Narrative General: Alert, oriented, no apparent distress HEENT: Atraumatic, normocephalic Eyes: Anicteric, normal conjunctiva, pupils equal round reactive to light, extraocular movements intact Neck: Supple Respiratory: Clear to auscultation bilaterally, normal respiratory effort Cardiovascular: Regular rate and rhythm GI: Soft, nontender, nondistended Extremities: No edema Musculoskeletal: Moving all extremities Neuro: No new overt abnormalities noted Skin: Chronic leg changes Psych: Cooperative Assessment & Plan Assessment/Plan (1) Cellulitis and abscess of left leg: PLAN: Plan 67-year-old male with 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 #Bilateral leg cellulitis with abscess of left leg in setting of bilateral lymphedema with venous stasis dermatitis and ulceration -Follows with wound clinic and last seen on 11/26 where he was referred to ED -Wound culture grew Pseudomonas, vancomycin discontinued -Podiatry following -Zosyn through the -Wound care nurse -Was on Lasix at home orally which was suspected to not be working and he was changed to IV Lasix here, no known history of heart disease, echo on this admission with an EF of 70% with enlarged left atrium and indeterminate diastolic dysfunction -BUN and bicarb beginning to increase inc, will change back to 40 of Lasix p.o. in the a.m. and 20 at lunch -12/07: Has finished antibiotics course, podiatry following, wound care following, will follow up with wound care as an outpatient as well. Next dressing change on Tuesday. Patient has increased debility given his leg pain and wounds and is now agreeable to skilled facility, bed will be available tomorrow #Facial numbness -Given distribution and his history had stroke call, CT head no acute changes, CTA with 70% right internal carotid stenosis -We will obtain MRI -On Coumadin, INR 1.3 today though was therapeutic on admission, will adjust dosing -INR 1.3, total weekly dose is 31 and based on the RE-LY trial algorithm his dosage was increased by 15 %/week so he was changed to 5 mg daily, will start onLovenox for DVT prophylaxis until INR is therapeutic as he is not a good candidate for SCDs -Echocardiogram 11/30/2022 with EF 70%, left atrium mildly enlarged, trivial mitral valve insufficiency, diastolic function indeterminate, will repeat limited echo for bubble study -change level of care to telemetry, NIH every 4 hours -Permissive hypertension -Has listed allergies to statins, statin held -lipid panel in AM -pt/ot/speech -12/07: Numbness improved and somewhat variable in location, not consistent with 1 dermatome nor 1 nerve root nor specific stroke distribution, given right internal carotid stenosis discussed with Dr. Allison and he advised carotid duplex and adding aspirin and then follow-up outpatient, MRI negative #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 and recent fall -Had stitches to right supraorbital margin in ED, CT in ED showed old infarct ofthalamus and CT C-spine with multilevel degenerative changes -Coumadin -PT/OT -See above for interval history #History of VTE -Has history of IVC filter which was noted on his abdominal CT -Duplex of the leg noted chronic DVT in right common femoral vein, right femoralvein, chronic DVT in left femoral vein and left popliteal vein -On Coumadin, trend INR #History of seizure disorder -Continue phenytoin #Severe protein calorie malnutrition -Prealbumin 16 -Nutrition consult, supplements #Chronic pain 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 Does also have IVC filter of note Mimi Cobb MD Time spent in the patient's overall evaluation,decision-making process, review of diagnostic data, adjustment of management, discussion with other providers, nursing nursing and ancillary staff involved in patient's care documentation, 30Minutes Charges/Coding Visit Charges Inpatient E&M: 41636 Subs Hosp L2 12/07/22 1842 <Electronically signed by Mimi Cobb MD> Cosigner Signature (if applicable): CC: ~ Signed [facility] Work Phone: [phone] 422-144302-28-2023 Progress note Author Froylan Sheppard [facility] December 07, 2022 10:08am Note Date/Time December 07, 2022 10:08am [facility] Medical Records Department [address] [place] [address] Progress Note 12/07/22 1003 MR#: [id number] Acct: [id number] Name: ESTEBAN URBINA Rep #:[id number] : 1955 67 From: Froylan wilson DPM PCP: Dr. Patricia Garcia, DO Status:ADM IN Location: [place] [address] Subjective Subjective Patient was seen resting in bed sitting up eating breakfast. He states that hisleft lower extremity is quite painful. He denies any constitutional symptoms. Denies any further complaints. Was given dose of pain medication prior to dressing change today. Objective Data Objective Data Vital Signs: Vital Signs Temp Pulse Resp BP Pulse Ox O2 Del Method 97.7 F L 77 16 117/72 97 Room Air 12/07/22 06:00 12/07/22 06:00 12/07/22 06:00 12/07/22 06:00 12/07/22 07:29 12/07/22 07:29 Oxygen Delivery Method Room Air Weight: 111.8 kg Body Mass Index (BMI) 39.7 Intake & Output: Intake and Output for Last 24 Hours 12/05/22 12/06/22 12/07/22 23:59 23:59 23:59 Intake Total 193.75 / 193.75 905 / 905 50 / 50 Output Total 6800 / 6800 1300 / 2300 1300 / 1300 Balance -6606.25 / -6606.25 -395 / -1395 -1250 / -1250 Lab / Micro Data Result Diagrams: 12/07/22 07:00 12/07/22 05:29 Labs: Laboratory Results - last 24 hr 12/06/22 12:29: POC Glucose 127 H 12/06/22 12:55: WBC 6.9, RBC 4.30 L, Hgb 13.9, Hct 42.0, MCV 97.7 H, MCH 32.3 H,MCHC 33.1, RDW Std Deviation 51.1 H, RDW Coeff of Checo 14.2, Plt Count 335, MPV 8.4, Immature Gran % (Auto) 0.900, Neut % (Auto) 65.8, Lymph % (Auto) 13.4 L, Perkins % (Auto) 13.8 H, Eos % (Auto) 5.5 H, Baso % (Auto) 0.6, Absolute Neuts (auto) 4.5, Absolute Lymphs (auto) 0.92, Nucleated RBC % 0 12/06/22 12:55: PT 15.7 H, INR 1.3, APTT 30.0 12/06/22 12:55: Sodium 138, Potassium 3.4 L, Chloride 99, Carbon Dioxide 33.0 H,Anion Gap 6, BUN 25 H, Creatinine 0.75, Estim Creat Clear Calc 88.61, Est GFR (MDRD) Af Amer 133, Est GFR (MDRD) Non-Af 110, BUN/Creatinine Ratio 33.2 H, Glucose 113 H, Calcium 9.1 12/07/22 05:29: WBC Cancelled, Corrected WBC Cancelled, RBC Cancelled, Hgb Cancelled, Hct Cancelled, MCV Cancelled, MCH Cancelled, MCHC Cancelled, RDW Std Deviation Cancelled, RDW Coeff of Checo Cancelled, Plt Count Cancelled, MPV Cancelled, Immature Gran % (Auto) Cancelled, Neut % (Auto) Cancelled, Lymph % (Auto) Cancelled, Perkins % (Auto) Cancelled, Eos % (Auto) Cancelled, Baso % (Auto)Cancelled, Absolute Neuts (auto) Cancelled, Absolute Lymphs (auto) Cancelled, Total Counted Cancelled, Neutrophils % (Manual) Cancelled, Band Neutrophils % Cancelled, Lymphocytes % (Manual) Cancelled, Monocytes % (Manual) Cancelled, Eosinophils % (Manual) Cancelled, Basophils % (Manual) Cancelled, Metamyelocytes% Cancelled, Myelocytes % Cancelled, Promyelocytes % Cancelled, Blast Cells % Cancelled, Plasma Cell % (Manual) Cancelled, Other Cells % Cancelled, Nucleated RBC % Cancelled, Nucleated RBCs/100 WBC Cancelled, Differential Comment Cancelled, Diff Path Review Cancelled, Hypersegmented Neuts Cancelled, Atypical Lymphocytes Cancelled, Reactive Lymphocytes Cancelled, Smudge Cells Cancelled, Toxic Granulation Cancelled, Toxic Vacuolation Cancelled, Dohle Bodies Cancelled, Neva Rods Cancelled, Platelet Estimate Cancelled, Plt Morphology Comment Cancelled, RBC Morphology Cancelled, Polychromasia Cancelled, Hypochromasia Cancelled, Poikilocytosis Cancelled, Basophilic Stippling Cancelled, Anisocytosis Cancelled, Microcytosis Cancelled, Macrocytosis Cancelled, Spherocytes Cancelled, Sickle Cells Cancelled, Target Cells Cancelled, Tear Drop Cells Cancelled, Ovalocytes Cancelled, Stomatocytes Cancelled, Weiss-Gratiot Bodies Cancelled, Elza Cells Cancelled, Bite Cells Cancelled, Crenated Cell Cancelled, Acanthocytes (Spur) Cancelled, Rouleaux Cancelled, Schistocytes Cancelled 12/07/22 05:29: Sodium 138, Potassium 4.2, Chloride 108 H, Carbon Dioxide 23.0, Anion Gap 7, BUN 24 H, Creatinine 0.66 L, Estim Creat Clear Calc 100.69, Est GFR(MDRD) Af Amer 157, Est GFR (MDRD) Non-Af 130, BUN/Creatinine Ratio 36.6 H, Glucose 93, Calcium 8.7, Total Bilirubin 0.20, AST 23, ALT 37, Alkaline Phosphatase 59, Total Protein 6.3 L, Albumin 2.3 L, Globulin 4.0, Albumin/Globulin Ratio 0.6 L, Triglycerides 99, Cholesterol 173, LDL [id number], VLDL Cholesterol 20, HDL Cholesterol 48 12/07/22 05:29: PT 16.7 H, INR 1.4 12/07/22 07:00: WBC 5.4, RBC 4.24 L, Hgb 13.3, Hct 41.2, MCV 97.2 H, MCH 31.4, MCHC 32.3, RDW Std Deviation 49.8 H, RDW Coeff of Checo 14.2, Plt Count 277, MPV 8.6, Immature Gran % (Auto) 1.100 H, Neut % (Auto) 51.7, Lymph % (Auto) 23.3, Perkins % (Auto) 15.6 H, Eos % (Auto) 7.4 H, Baso % (Auto) 0.9, Absolute Neuts (auto) 2.8, Absolute Lymphs (auto) 1.26, Nucleated RBC % 0 Micro: Microbiology 11/30/22 15:50 Wound - Leg, Left Gram Stain - Final 11/30/22 15:50 Wound - Leg, Left Wound Culture - Final Pseudomonas aeruginosa 11/30/22 15:50 Wound - Leg, Left Anaerobic Culture - Final No anaerobic bacteria isolated. 11/30/22 14:35 Blood Culture (Wb) - Right Hand Blood Culture - Final No growth in 5 days. 11/30/22 14:25 Blood Culture (Wb) - Anticubital Right Blood Culture - Final No growth in 5 days. Radiography Diagnostic Testing: Radiology Impression Brain CT 12/06/22 12:17 IMPRESSION: Chronic involutional changes of the brain. Mild degree of mucosal thickening of the ethmoid sinuses. Electronically Signed: Timo Durham MD at 13:10 EST , ADDENDUM: 12/06/22 1321 IMPRESSION: Chronic involutional changes of the brain. Mild degree of mucosal thickening of the ethmoid sinuses. N.B. : The above Results were Read Back by Timo Durham MD to Dr Kleber MD, and understanding confirmed on 12/06/2022 13:14:48 (ET). Electronically Signed: Timo Durham MD at 13:10 EST , Head/Neck CTA 12/06/22 12:17 IMPRESSION: Calcific plaque formation at the origin of the right internal carotid artery causing greater than 70% narrowing. 50-69% narrowing at the origin of left internal carotid artery due to calcific plaque formation. N.B. : The above Results were Read Back by Timo Durham MD to MIMI COBB and understanding confirmed on 12/06/2022 13:21:58 (ET). Electronically Signed: Timo Durham MD at 13:24 EST , ADDENDUM: 12/06/22 1331 IMPRESSION: Calcific plaque formation at the origin of the right internal carotid artery causing greater than 70% narrowing. 50-69% narrowing at the origin of left internal carotid artery due to calcific plaque formation. N.B. : The above Results were Read Back by Timo Durham MD to MIMI COBB and understanding confirmed on 12/06/2022 13:21:58 (ET). Electronically Signed: Timo Durham MD at 13:24 EST , Brain MRI 12/06/22 18:46 IMPRESSION: 1. No intracranial mass, hemorrhage, or acute territorial infarct. Old right basal ganglia infarct. Electronically Signed: Philip Vazquez MD at 19:42 EST , Physical Exam Narrative Bilateral lower extremity venous ulcerations down to subcutaneous tissue layer - there is granular tissue, some fibrotic tissue in wound beds, margins are viable, no maloder, no fluctuance, no crepitus, no necrosis - ulcers improving, there is diffuse LE venous stasis skin changes, there is no evidence of acute ischemia bilateral, CFT < 2 seconds to all toes. No cellulitis to leg, ankle or foot bilateral. Const alert, oriented x3 and no apparent distress General Appearance: cooperative Assessment & Plan Assessment/Plan (1) Cellulitis and abscess of left leg: PLAN: Plan Patient seen and evaluated Clinically legs continue to improve. Edema is decreased with his compression dressings. Today dressing was changed - cleansed with normal saline soln, continue with local wound care Aquacel Ag, gauze, abd pads, kerlix, compression therapy and leg elevation. Patient is on antibiotics as well - Zosyn - cultures grew pseudomonas. Podiatry will continue to follow - will see for next dressing change which will be on Tuesday. Pending patient discharge he will return to the wound care center for appointment with Dr. Garcia on Tuesday. Froylan Sheppard Jr. D.P.M. [facility] [phone] 12/07/22 1008 <Electronically signed by Froylan Sheppard DPNathalie> Froylan Tolbert Cosigner Signature (if applicable): CC: ~ Signed [facility] Work Phone: [phone]) 753-172102-27-[address] Cobb [facility] December 06, 2022 5:09pm Note Date/Time December 06, 2022 8:21am [facility] Medical Records Department [address] [place] [address] Progress Note - Hospitalist 12/06/22 0810 MR#: [id number] Acct: [id number] Name: ESTEBAN URBINA Rep #:[id number] : 1955 67 From: Mimi Cobb MD PCP: Dr. Patricia Garcia, DO Status:ADM IN Location: [place] [address]- Reason for Visit Reason for Visit: Diagnoses Unspecified severe protein-calorie malnutrition (11/30/22) Other chronic pain (11/30/22) Venous insufficiency (chronic) (peripheral) (11/30/22) Lymphedema, not elsewhere classified (11/30/22) Cutaneous abscess of left lower limb (11/30/22) Cutaneous abscess of limb, unspecified (11/30/22) Cellulitis of left lower limb (11/30/22) Cellulitis of unspecified part of limb (11/30/22) Non-pressure chronic ulcer of right calf with fat layer exposed (11/30/22) Non-pressure chronic ulcer of left calf with fat layer exposed (11/30/22) Unspecified fall, initial encounter (11/30/22) Subjective Subjective See message regarding patient complaining of some left-sided facial numbness. Went to evaluate patient when he reported numbness on the lower left portion of his face including his tongue and hard palate with some pain behind his left ear, has chronic weakness in left upper and lower extremities due to previous stroke. Poor historian but ultimately told multiple people that he did have newonset numbness. Neuro exam remarkable for slightly decreased strength in left upper and lower extremities which she reported was consistent with prior stroke as well as decreased sensation in lower half of left face. Stroke call, CT headand CTA head and neck without large vessel occlusion or acute stroke noted, stroke work-up obtained. Patient does have some pain in his legs which are fairly chronic and had no other changes or concerns at time of exam Objective Data Objective Data Vital Signs: Vital Signs Temp Pulse Resp BP Pulse Ox O2 Del Method 97.7 F L 75 18 115/74 97 Room Air 12/06/22 08:00 12/06/22 08:00 12/06/22 08:00 12/06/22 08:00 12/06/22 08:00 12/06/22 08:00 Oxygen Delivery Method Room Air Weight: 111 kg Body Mass Index (BMI) 39.3 Intake & Output: Intake and Output for Last 24 Hours 12/04/22 12/05/22 12/06/22 23:59 23:59 23:59 Intake Total 424.75 / 424.75 193.75 / 193.75 50 / 50 Output Total 4300 / 4300 6800 / 6800 800 / 800 Balance -3875.25 / -3875.25 -6606.25 / -6606.25 -750 / -750 Lab / Micro Data Result Diagrams: 12/06/22 12:55 12/06/22 12:55 Labs: Laboratory Results - last 24 hr 12/06/22 04:35: WBC 5.6, RBC 4.01 L, Hgb 12.7 L, Hct 38.9 L, MCV 97.0 H, MCH 31.7, MCHC 32.6, RDW Std Deviation 50.1 H, RDW Coeff of Checo 14.1, Plt Count 321,MPV 9.0, Immature Gran % (Auto) 1.100 H, Neut % (Auto) 51.2, Lymph % (Auto) 24.3, Perkins % (Auto) 14.7 H, Eos % (Auto) 7.6 H, Baso % (Auto) 1.1 H, Absolute Neuts (auto) 2.9, Absolute Lymphs (auto) 1.37, Nucleated RBC % 0 12/06/22 04:35: Sodium 136, Potassium 3.6, Chloride 102, Carbon Dioxide 29.0, Anion Gap 5, BUN 27 H, Creatinine 0.71, Estim Creat Clear Calc 93.60, Est GFR (MDRD) Af Amer 142, Est GFR (MDRD) Non-Af 118, BUN/Creatinine Ratio 37.9 H, Glucose 105, Calcium 8.7 Micro: Microbiology 11/30/22 15:50 Wound - Leg, Left Gram Stain - Final 11/30/22 15:50 Wound - Leg, Left Wound Culture - Final Pseudomonas aeruginosa 11/30/22 15:50 Wound - Leg, Left Anaerobic Culture - Final No anaerobic bacteria isolated. 11/30/22 14:35 Blood Culture (Wb) - Right Hand Blood Culture - Final No growth in 5 days. 11/30/22 14:25 Blood Culture (Wb) - Anticubital Right Blood Culture - Final No growth in 5 days. Physical Exam Narrative General: Alert, oriented, no apparent distress HEENT: Atraumatic, normocephalic Eyes: Anicteric, normal conjunctiva, pupils equal round reactive to light, extraocular movements intact Neck: Supple Respiratory: Clear to auscultation bilaterally, normal respiratory effort Cardiovascular: Regular rate and rhythm GI: Soft, nontender, nondistended Extremities: No edema Musculoskeletal: Moving all extremities, 5 out of 5 strength in right upper and lower extremities with 4+ in left upper and lower extremities Neuro: Cranial nerves II through XII intact only abnormality with subjective decrease in sensation over left side of face, [id number] without significantdifficulty Skin: Chronic leg changes Psych: Cooperative Assessment & Plan Assessment/Plan (1) Cellulitis and abscess of left leg: PLAN: Plan 67-year-old male with 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 #Facial numbness -Given distribution and his history had stroke call, CT head no acute changes, CTA with 70% right internal carotid stenosis -We will obtain MRI -On Coumadin, INR 1.3 today though was therapeutic on admission, will adjust dosing -INR 1.3, total weekly dose is 31 and based on the RE-LY trial algorithm his dosage was increased by 15 %/week so he was changed to 5 mg daily, will start onLovenox for DVT prophylaxis until INR is therapeutic as he is not a good candidate for SCDs -Echocardiogram 11/30/2022 with EF 70%, left atrium mildly enlarged, trivial mitral valve insufficiency, diastolic function indeterminate, will repeat limited echo for bubble study -change level of care to telemetry, [facility] every 4 hours -Permissive hypertension -Has listed allergies to statins, statin held -lipid panel in AM -pt/ot/speech #Bilateral leg cellulitis with abscess of left leg in setting of bilateral lymphedema with venous stasis dermatitis and ulceration -Follows with wound clinic and last seen on 11/26 where he was referred to ED -Wound culture grew Pseudomonas, vancomycin discontinued -Podiatry following -Zosyn through the -Wound care nurse -Was on Lasix at home orally which was suspected to not be working and he was changed to IV Lasix here, no known history of heart disease, echo on this admission with an EF of 70% with enlarged left atrium and indeterminate diastolic dysfunction -BUN and bicarb beginning to increase inc, will change back to 40 of Lasix p.o. in the a.m. and 20 at lunch #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 and recent fall -Had stitches to right supraorbital margin in ED, CT in ED showed old infarct ofthalamus and CT C-spine with multilevel degenerative changes -Coumadin -PT/OT -See above for interval history #History of VTE -Has history of IVC filter which was noted on his abdominal CT -Duplex of the leg noted chronic DVT in right common femoral vein, right femoralvein, chronic DVT in left femoral vein and left popliteal vein -On Coumadin, trend INR #History of seizure disorder -Continue phenytoin #Severe protein calorie malnutrition -Prealbumin 16 -Nutrition consult, supplements #Chronic pain 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 Does also have IVC filter of note Mimi Cobb MD Time spent in the patient's overall evaluation,decision-making process, review of diagnostic data, adjustment of management, discussion with other providers, nursing nursing and ancillary staff involved in patient's care documentation,70 Minutes Charges/Coding Visit Charges Inpatient E&M: 55200 Subs Hosp L3 12/06/22 1709 <Electronically signed by Mimi Cobb MD> Cosigner Signature (if applicable): CC: ~ Signed [facility] Work Phone: [phone]) 810-977702-26-[address] Lucero [facility] December 05, 2022 11:28am Note Date/Time December 05, 2022 7:16am [facility] Medical Records Department [address] [place] [address] Progress Note - Hospitalist 12/05/22 0716 MR#: [id number] Acct: [id number] Name: ESTEBAN URBINA Rep #:[id number] : 1955 67 From: Wei Lucero DO PCP: Dr. Patricia Garcia DO Status:ADM IN Location: [place] [address] Reason for Visit Reason for Visit: Diagnoses Unspecified severe protein-calorie malnutrition (11/30/22) Other chronic pain (11/30/22) Venous insufficiency (chronic) (peripheral) (11/30/22) Lymphedema, not elsewhere classified (11/30/22) Cutaneous abscess of left lower limb (11/30/22) Cutaneous abscess of limb, unspecified (11/30/22) Cellulitis of left lower limb (11/30/22) Cellulitis of unspecified part of limb (11/30/22) Non-pressure chronic ulcer of right calf with fat layer exposed (11/30/22) Non-pressure chronic ulcer of left calf with fat layer exposed (11/30/22) Unspecified fall, initial encounter (11/30/22) Subjective Subjective Right wrist and legs feeling better. Asking about coQ10 for his leg pain as the pain is likely deep in his bones. Objective Data Objective Data Vital Signs: Vital Signs Temp Pulse Resp BP Pulse Ox O2 Del Method 36.6 C 77 16 123/69 H 95 Room Air 12/05/22 04:50 12/05/22 04:50 12/05/22 04:50 12/05/22 04:50 12/05/22 04:50 12/05/22 04:50 Oxygen Delivery Method Room Air Weight: 112 kg Body Mass Index (BMI) 39.6 Intake & Output: Intake and Output for Last 24 Hours 12/03/22 12/04/22 12/05/22 23:59 23:59 23:59 Intake Total 1831.00 / 1831.00 424.75 / 424.75 93.75 / 93.75 Output Total 2700 / 4300 4300 / 4300 1100 / 1100 Balance -869.00 / -2469.00 -3875.25 / -3875.25 -1006.25 / -1006.25 Lab / Micro Data Result Diagrams: 12/04/22 05:17 12/04/22 05:17 Labs: Laboratory Results - last 24 hr 12/04/22 05:17: Sodium 138, Potassium 3.6, Chloride 105, Carbon Dioxide 29.0, Anion Gap 4 L, BUN 23 H, Creatinine 0.78, Estim Creat Clear Calc 85.20, Est GFR (MDRD) Af Amer 128, Est GFR (MDRD) Non-Af 105, BUN/Creatinine Ratio 29.3 H, Glucose 104, Calcium 8.7 Micro: Microbiology 11/30/22 14:35 Blood Culture (Wb) - Right Hand Blood Culture - Preliminary No growth in 48 hours. 11/30/22 14:25 Blood Culture (Wb) - Anticubital Right Blood Culture - Preliminary No growth in 48 hours. 11/30/22 15:50 Wound - Leg, Left Gram Stain - Final 11/30/22 15:50 Wound - Leg, Left Wound Culture - Final Pseudomonas aeroginosa 11/30/22 15:50 Wound - Leg, Left Anaerobic Culture - Preliminary No growth in 48 hours. Physical Exam Const alert and no apparent distress Resp normal respiratory effort, no retractions, no use of accessory muscles and clearto auscultation bilaterally Cardio regular rate, regular rhythm, S1 normal heart sound and S2 normal heart sound GI normal to inspection, nondistended, normoactive bowel sounds Extremity Extremity Narrative: bilateral legs wrapped--did not remove. right wrist swelling improved. Assessment & Plan Assessment/Plan (1) Cellulitis and abscess of leg: PLAN: Wound care nurse consult. Cx growing out Pseudomonas DC vancomycin. Has reported allergy ciprofloxacin and when she develops a rash would continue with pip/tazo through AM on the . (2) Lymphedema: PLAN: Bilateral lower extremity edema and bilateral lymphedema: Patient on oral furosemide at home probably not working. Started on IV furosemide 40 mg every 12 hourly. Continue as vitals and renal function remained stable. 2D echo showed EF of 70%. Enlarged left atrium. Diastolic function indeterminate. Duplex notes chronic DVT in the right common femoral vein, right femoral vein, chronic DVT in the left femoral vein and left popliteal vein. Enlarged left inguinal lymph node measuring 4.8 x 1.1 cm. Positive for reflux in the right common femoral vein. (3) Fall: PLAN: Slip and fall and small laceration of right supraorbital margin: Laceratedwound was stitched by ED physician. No loss of consciousness. Patient had CT brain which showed old left infarct of right thalamus, CT C-spine reported multilevel degenerative changes. Right Shoulder x-ray degenerative changes no acute abnormality. Abdominal pelvis CT shows mildly distended GB with multiple gallstones. IVC filter. Prostatic enlargement with indentation of bladder base. 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 On exam, patient was complaining about me touching his leg when I was not even close to touching his leg. He then stated it was because I was touching the absorbant dressing that his leg was resting on. I then made careful not when I touched that dressing that I was not actually altering it on his leg and he was complaining of pain. So his exam seem to be not consistent and proportion to exam from what I was able to gather. Continue with methadone. PLAN: Plan Chronic conditions * History of pulmonary embolism: Patient on warfarin, continued. INR therapeutic. Patient had IVC filter as reported in his abdomen pelvis CT. Monitor INR daily. * Stroke in 2008 with restricted mobility: PT and OT ordered. No new finding pertaining to stroke. * hypertension, resume lisinopril * chronic alcohol use, * lupus, on no chronic meds * seizure: Continue phenytoin. Check phenytoin level * Chronic pain: Continue to hold methadone * Self-reported electromagnetic sensitivity. Patient wanted to use his blanket to help him with the electromagnetic discharges that are pubic it was at a hospital or any facility with electricity. The device actually plugs and to allegedly absorb all electromagnetic rays. Given my unfamiliarity with this device. It told nursing that that he could wear it but not for the be plugged in so does not potentially interfere with any of the medical devices. VTE prophylaxis: On warfarin. Position: Patient has completed IV antibiotics. Patient's last dose of pip/tazois 12/07 at 10am. Charges/Coding Visit Charges Inpatient E&M: 57846 Subs Hosp L2 12/05/22 1128 <Electronically signed by Wei Lucero DO> Cosigner Signature (if applicable): CC: ~ Signed [facility] Work Phone: [phone]) 209-273302-26-2023 Progress note Author Vickey Collado [facility] December 05, 2022 9:03am Note Date/Time December 05, 2022 9:01am [facility] Medical Records Department [address] [place] [address] Progress Note 12/05/22 0900 MR#: [id number] Acct: [id number] Name: ESTEBAN URBINA Julián Rep #:[id number] : 1955 67 From: Vickey Collado DPM PCP: Dr. Patricia Garcia DO Status:ADM IN Location: [facility] [place] GF195-7 Subjective Subjective Patient was seen this morning for follow up on leg ulcers. Cultures grew pseudomonas. No complaints of fever, chills, nausea or vomiting. Objective Data Objective Data Vital Signs: Vital Signs Temp Pulse Resp BP Pulse Ox O2 Del Method 97.8 F 77 16 123/69 H 95 Room Air 12/05/22 04:50 12/05/22 04:50 12/05/22 04:50 12/05/22 04:50 12/05/22 04:50 12/05/22 04:50 Oxygen Delivery Method Room Air Weight: 112 kg Body Mass Index (BMI) 39.6 Intake & Output: Intake and Output for Last 24 Hours 12/03/22 12/04/22 12/05/22 23:59 23:59 23:59 Intake Total 1831.00 / 1831.00 424.75 / 424.75 93.75 / 93.75 Output Total 2700 / 4300 4300 / 4300 1100 / 1100 Balance -869.00 / -2469.00 -3875.25 / -3875.25 -1006.25 / -1006.25 Lab / Micro Data Result Diagrams: 12/04/22 05:17 12/04/22 05:17 Micro: Microbiology 11/30/22 14:35 Blood Culture (Wb) - Right Hand Blood Culture - Preliminary No growth in 48 hours. 11/30/22 14:25 Blood Culture (Wb) - Anticubital Right Blood Culture - Preliminary No growth in 48 hours. 11/30/22 15:50 Wound - Leg, Left Gram Stain - Final 11/30/22 15:50 Wound - Leg, Left Wound Culture - Final Pseudomonas aeroginosa 11/30/22 15:50 Wound - Leg, Left Anaerobic Culture - Preliminary No growth in 48 hours. Physical Exam Narrative Bilateral lower extremity venous ulcerations down to subcutaneous tissue layer - there is granular tissue, some fibrotic tissue in wound beds, margins are viable, no maloder, no fluctuance, no crepitus, no necrosis - ulcers improving, there is diffuse LE venous stasis skin changes, there is no evidence of acute ischemia bilateral, CFT < 2 seconds to all toes. No cellulitis to leg, ankle or foot bilateral. Assessment & Plan Assessment/Plan (1) Cellulitis and abscess of left leg: PLAN: Exam performed. Clinically legs continue to improve. Today dressing was changed - cleansed with normal saline soln, continue with local wound care aqua cell ag, gauze, abd pads, kerlix, compression therapy and leg elevation. Patient is on antibiotics as well - Zosyn - cultures grew pseudomonas. Podiatry will continue to follow - will see for next dressing change which will be on Tuesday. 12/05/22 0903 <Electronically signed by Vickey Collado DPM> Vickey Collado DPM Cosigner Signature (if applicable): CC: ~ Signed [facility] Work Phone: 1(750) 725-675702-25-[address] Lucero [facility] December 04, 2022 1:05pm Note Date/Time December 04, 2022 7:24am [facility] Medical Records Department [address] [place] [address] Progress Note - Hospitalist 12/04/22 0721 MR#: [id number] Acct: [id number] Name: ESTEBAN URBINA Rep #:[id number] : 1955 67 From: Wei Lucero DO PCP: Dr. Patricia Garcia DO Status:ADM [id number] Reason for Visit Reason for Visit: Diagnoses Unspecified severe protein-calorie malnutrition (11/30/22) Other chronic pain (11/30/22) Venous insufficiency (chronic) (peripheral) (11/30/22) Lymphedema, not elsewhere classified (11/30/22) Cutaneous abscess of left lower limb (11/30/22) Cutaneous abscess of limb, unspecified (11/30/22) Cellulitis of left lower limb (11/30/22) Cellulitis of unspecified part of limb (11/30/22) Non-pressure chronic ulcer of right calf with fat layer exposed (11/30/22) Non-pressure chronic ulcer of left calf with fat layer exposed (11/30/22) Unspecified fall, initial encounter (11/30/22) Subjective Subjective Still with pain right wrist and LE, but improved. Still feels better with his grounding pad on. Objective Data Objective Data Vital Signs: Vital Signs Temp Pulse Resp BP Pulse Ox O2 Del Method 36.7 C 84 16 118/63 97 Room Air 12/04/22 03:06 12/04/22 03:06 12/04/22 03:06 12/04/22 03:06 12/04/22 03:06 12/04/22 03:06 Oxygen Delivery Method Room Air Weight: 112 kg Body Mass Index (BMI) 39.6 Intake & Output: Intake and Output for Last 24 Hours 12/02/22 12/03/22 12/04/22 23:59 23:59 23:59 Intake Total 1733.5 / 2133.5 1831.00 / 1831.00 89 / 89 Output Total 2700 / 2700 2700 / 4300 2200 / 2200 Balance -966.5 / -566.5 -869.00 / -2469.00 -2111 / -2111 Lab / Micro Data Result Diagrams: 12/04/22 05:17 12/04/22 05:17 Labs: Laboratory Results - last 24 hr 12/03/22 18:23: Vancomycin Trough 20.8 H 12/04/22 05:17: WBC 5.7, RBC 3.88 L, Hgb 12.1 L, Hct 38.2 L, MCV 98.5 H, MCH 31.2, MCHC 31.7 L, RDW Std Deviation 51.2 H, RDW Coeff of [place] 14.3, Plt Count 360, MPV 9.0, Immature Gran % (Auto) 0.700, Neut % (Auto) 56.3, Lymph % (Auto) 22.3, Perkins % (Auto) 12.8 H, Eos % (Auto) 7.0 H, Baso % (Auto) 0.9, Absolute Neuts (auto) 3.2, Absolute Lymphs (auto) 1.27, Nucleated RBC % 0 12/04/22 05:17: PT 21.4 H, INR 1.9 Micro: Microbiology 11/30/22 15:50 Wound - Leg, Left Gram Stain - Final 11/30/22 15:50 Wound - Leg, Left Wound Culture - Final Pseudomonas aeroginosa 11/30/22 15:50 Wound - Leg, Left Anaerobic Culture - Preliminary No growth in 48 hours. Physical Exam Const alert and no apparent distress Resp normal respiratory effort, no retractions, no use of accessory muscles and clearto auscultation bilaterally Cardio regular rate, regular rhythm, S1 normal heart sound and S2 normal heart sound Extremity Extremity Narrative: Distal swelling of the dorsum of his right wrist with tenderness palpation. Noterythematous. Bilateral lower extremities are wrapped, did not remove. Assessment & Plan Assessment/Plan (1) Cellulitis and abscess of leg: PLAN: Wound care nurse consult. Cx growing out Pseudomonas DC vancomycin. Has reported allergy ciprofloxacin and when she develops a rash would continue with pip/tazo through the . (2) Lymphedema: PLAN: Bilateral lower extremity edema and bilateral lymphedema: Patient on oral furosemide at home probably not working. Started on IV furosemide 40 mg every 12 hourly. Continue as vitals and renal function remained stable. 2D echo showed EF of 70%. Enlarged left atrium. Diastolic function indeterminate. Duplex notes chronic DVT in the right common femoral vein, right femoral vein, chronic DVT in the left femoral vein and left popliteal vein. Enlarged left inguinal lymph node measuring 4.8 x 1.1 cm. Positive for reflux in the right common femoral vein. (3) Fall: PLAN: Slip and fall and small laceration of right supraorbital margin: Laceratedwound was stitched by ED physician. No loss of consciousness. Patient had CT brain which showed old left infarct of right thalamus, CT C-spine reported multilevel degenerative changes. Right Shoulder x-ray degenerative changes no acute abnormality. Abdominal pelvis CT shows mildly distended GB with multiple gallstones. IVC filter. Prostatic enlargement with indentation of bladder base. 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 On exam, patient was complaining about me touching his leg when I was not even close to touching his leg. He then stated it was because I was touching the absorbant dressing that his leg was resting on. I then made careful not when I touched that dressing that I was not actually altering it on his leg and he was complaining of pain. So his exam seem to be not consistent and proportion to exam from what I was able to gather. Continue with methadone. PLAN: Plan Chronic conditions * History of pulmonary embolism: Patient on warfarin, continued. INR therapeuti c. Patient had IVC filter as reported in his abdomen pelvis CT. Monitor INR daily. * Stroke in 2008 with restricted mobility: PT and OT ordered. No new finding pertaining to stroke. * hypertension, resume lisinopril * chronic alcohol use, * lupus, on no chronic meds * seizure: Continue phenytoin. Check phenytoin level * Chronic pain: Continue to hold methadone * Self-reported electromagnetic sensitivity. Patient wanted to use his blanket to help him with the electromagnetic discharges that are pubic it was at a hospital or any facility with electricity. The device actually plugs and to allegedly absorb all electromagnetic rays. Given my unfamiliarity with this device. It told nursing that that he could wear it but not for the be plugged in so does not potentially interfere with any of the medical devices. VTE prophylaxis: On warfarin. Position: To be determined but likely Tuesday or Tuesday of next week. Patient to go home with home care. Charges/Coding Visit Charges Inpatient E&M: 24566 Subs Hosp L2 12/04/22 1300 <Electronically signed by Wei Lucero DO> Cosigner Signature (if applicable): CC: ~ Signed [facility] Work Phone: [phone]) [phone] Lucero [facility] December 04, 2022 7:21am Note Date/Time December 03, 2022 8:05pm [facility] Medical Records Department [address] [facility] [place] [address] Pharmacokinetic/Renal -Consult 12/03/222003 MR#: [id number] Acct: [id number] Name: ESTEBAN URBINA Rep #:[id number] : 1955 67 From: Juana Muñiz PCP: Dr. Patricia Garcia DO Status:ADM IN Y Location: [facility] [id number] Consult Pharmacy has been consulted to manage selected antiobiotic: Vancomycin Type of Consult: Follow-up Labs: Sodium 137 mmol/L (136-145) 12/03/22 04:34 Potassium 3.6 mmol/L (3.5-5.1) 12/03/22 04:34 Chloride 105 mmol/L (98-107) 12/03/22 04:34 Carbon Dioxide 27.0 mmol/L (21.0-32.0) 12/03/22 04:34 Anion Gap 5 (5-15) 12/03/22 04:34 BUN 20 mg/dL (7-18) H 12/03/22 04:34 Creatinine 0.71 mg/dL (0.70-1.30) 12/03/22 04:34 Est GFR (MDRD) Af Amer 143 mL/min (>60) 12/03/22 04:34 Est GFR (MDRD) Non-Af 118 mL/min (>60) 12/03/22 04:34 BUN/Creatinine Ratio 28.1 RATIO (10-20) H 12/03/22 04:34 Glucose 102 mg/dL (74-106) 12/03/22 04:34 Vancomycin Trough 20.8 ug/mL (5.0-15.0) H 12/03/22 18:23 Microbiology: Microbiology 11/30/22 15:50 Wound - Leg, Left Gram Stain - Final 11/30/22 15:50 Wound - Leg, Left Wound Culture - Preliminary GNR Poss Pseudomonas sp 11/30/22 15:50 Wound - Leg, Left Anaerobic Culture - Preliminary No growth in 48 hours. Goal Trough: 15-20 mcg/mL Pharmacy Plan for Drug Dosing: VANCOMYCIN LEVEL RECEIVED Current Vancomycin Dose: 1750MG IV Q12hr Number of Doses Received: several Vancomycin Level: 20.8 Hours Since Last Dose: 12.5hr Renal Function: 0.71 Renal Function Trend: stable Lab/Micro: BCx pending, WCx growing GNR Vancomycin Plan/Comments: Patient had a trough drawn which resulted in a value of 20.8 (Goal 15-20). Trough was drawn 1 hour late, and already hung this evening's dose. Will hold subsequent doses until trough is <20. Pending Level: *RANDOM* level 12/04/22 @1900 Pharmacy Service will continue to monitor and adjust dosing as required. 12/03/222004 <Electronically signed by Juana Muñiz > Date _ Juana Muñiz 12/04/22720 <Electronically signed by Wei Lucero DO> Cosigner Signature (if applicable): Date Wei Lucero DO CC: ~ Signed [facility] Work Phone: [phone]) 181-565102-24-[address] Lucero [facility] December 03, 2022 2:09pm Note Date/Time December 03, 2022 7:42am [facility] Medical Records Department [address] [place] [address] Progress Note - Hospitalist 12/03/22 0740 MR#: [id number] Acct: [id number] Name: ESTEBAN URBINA Rep #:[id number] : 1955 67 From: Wei Lucero DO PCP: Dr. Patricia Garcia DO Status:ADM IN Location: [facility] CM025-7 Reason for Visit Reason for Visit: Diagnoses Unspecified severe protein-calorie malnutrition (11/30/22) Other chronic pain (11/30/22) Venous insufficiency (chronic) (peripheral) (11/30/22) Lymphedema, not elsewhere classified (11/30/22) Cutaneous abscess of left lower limb (11/30/22) Cutaneous abscess of limb, unspecified (11/30/22) Cellulitis of left lower limb (11/30/22) Cellulitis of unspecified part of limb (11/30/22) Non-pressure chronic ulcer of right calf with fat layer exposed (11/30/22) Non-pressure chronic ulcer of left calf with fat layer exposed (11/30/22) Unspecified fall, initial encounter (11/30/22) Subjective Subjective complains of right wrist pain. pain in legs particularly with the wraps. Objective Data Objective Data Vital Signs: Vital Signs Temp Pulse Resp BP Pulse Ox O2 Del Method 37.2 C 90 15 99/46 L 94 Room Air 12/03/22 02:04 12/03/22 02:04 12/03/22 02:04 12/03/22 02:04 12/03/22 02:04 12/03/22 02:04 Oxygen Delivery Method Room Air Weight: 112 kg Body Mass Index (BMI) 39.6 Intake & Output: Intake and Output for Last 24 Hours 12/01/22 12/02/22 12/03/22 23:59 23:59 23:59 Intake Total 3043 / 3043 1733.5 / 2133.5 450 / 450 Output Total 5750 / 5750 2700 / 2700 1100 / 1100 Balance -2707 / -2707 -966.5 / -566.5 -650 / -650 Lab / Micro Data Result Diagrams: 12/03/22 04:34 12/03/22 04:34 Labs: Laboratory Results - last 24 hr 12/03/22 04:34: PT 24.1 H, INR 2.2 12/03/22 04:34: WBC 6.3, RBC 3.73 L, Hgb 11.9 L, Hct 36.5 L, MCV 97.9 H, MCH 31.9, MCHC 32.6, RDW Std Deviation 50.4 H, RDW Coeff of [place] 14.1, Plt Count 340,MPV 8.8, Immature Gran % (Auto) 0.300, Neut % (Auto) 56.5, Lymph % (Auto) 24.1, Perkins % (Auto) 11.5 H, Eos % (Auto) 6.8 H, Baso % (Auto) 0.8, Absolute Neuts (auto) 3.6, Absolute Lymphs (auto) 1.53, Nucleated RBC % 0 12/03/22 04:34: Sodium 137, Potassium 3.6, Chloride 105, Carbon Dioxide 27.0, Anion Gap 5, BUN 20 H, Creatinine 0.71, Estim Creat Clear Calc 93.60, Est GFR (MDRD) Af Amer 143, Est GFR (MDRD) Non-Af 118, BUN/Creatinine Ratio 28.1 H, Glucose 102, Calcium 8.7 Micro: Microbiology 11/30/22 15:50 Wound - Leg, Left Gram Stain - Final 11/30/22 15:50 Wound - Leg, Left Wound Culture - Preliminary Physical Exam Const alert and no apparent distress Resp normal respiratory effort, no retractions and no use of accessory muscles Cardio regular rate, regular rhythm, S1 normal heart sound and S2 normal heart sound GI normal to inspection, nondistended, normoactive bowel sounds, soft to palpation,non-tender and non-distended Extremity Extremity Narrative: swelling on dorsum of right hand. no infiltration. bilateral legs wrapped--did not remove. Psych affect normal Assessment & Plan Assessment/Plan (1) Cellulitis and abscess of leg: PLAN: Antibiotics w vancomycin and Zosyn. Wound care nurse consult. Cx growing out possible Pseudomonas species (2) Lymphedema: PLAN: Bilateral lower extremity edema and bilateral lymphedema: Patient on oral furosemide at home probably not working. Started on IV furosemide 40 mg every 12 hourly. Continue as vitals and renal function remained stable. 2D echo showed EF of 70%. Enlarged left atrium. Diastolic function indeterminate. Duplex notes chronic DVT in the right common femoral vein, right femoral vein, chronic DVT in the left femoral vein and left popliteal vein. Enlarged left inguinal lymph node measuring 4.8 x 1.1 cm. Positive for reflux in the right common femoral vein. (3) Fall: PLAN: Slip and fall and small laceration of right supraorbital margin: Laceratedwound was stitched by ED physician. No loss of consciousness. Patient had CT brain which showed old left infarct of right thalamus, CT C-spine reported multilevel degenerative changes. Right Shoulder x-ray degenerative changes no acute abnormality. Abdominal pelvis CT shows mildly distended GB with multiple gallstones. IVC filter. Prostatic enlargement with indentation of bladder base. 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 On exam, patient was complaining about me touching his leg when I was not even close to touching his leg. He then stated it was because I was touching the absorbant dressing that his leg was resting on. I then made careful not when I touched that dressing that I was not actually altering it on his leg and he was complaining of pain. So his exam seem to be not consistent and proportion to exam from what I was able to gather. Continue with methadone. PLAN: Plan Chronic conditions * History of pulmonary embolism: Patient on warfarin, continued. INR therapeutic. Patient had IVC filter as reported in his abdomen pelvis CT. Monitor INR daily. * Stroke in 2008 with restricted mobility: PT and OT ordered. No new finding pertaining to stroke. * hypertension, resume lisinopril * chronic alcohol use, * lupus, on no chronic meds * seizure: Continue phenytoin. Check phenytoin level * Chronic pain: Continue to hold methadone * Self-reported electromagnetic sensitivity. Patient wanted to use his blanket to help him with the electromagnetic discharges that are pubic it was at a hospital or any facility with electricity. The device actually plugs and to allegedly absorb all electromagnetic rays. Given my unfamiliarity with this device. It told nursing that that he could wear it but not for the be plugged in so does not potentially interfere with any of the medical devices. VTE prophylaxis: On warfarin. Charges/Coding Visit Charges Inpatient E&M: 41983 Subs Hosp L2 12/03/22 1409 <Electronically signed by Wei Lucero DO> Cosigner Signature (if applicable): CC: ~ Signed [facility] Work Phone: [phone]) [phone] Progress note Author Vickey Collado [facility] December 03, 2022 12:46pm Note Date/Time December 03, 2022 6:57am [facility] Medical Records Department [address] [place] [address] Progress Note 12/03/22656 MR#: [id number] Acct: [id number] Name: ESTEBAN URBINA Rep #:[id number] : 1955 67 From: Vickey Collado DPM PCP: Dr. Patricia Garcia DO Status:ADM IN Location: [place] [address] Subjective Subjective Patient was seen this morning for follow up on bilateral leg ulcerations. He is resting in bed, no new complaints. No fever. Objective Data Objective Data Vital Signs: Vital Signs Temp Pulse Resp BP Pulse Ox O2 Del Method 98.9 F 90 15 99/46 L 94 Room Air 12/03/22 02:04 12/03/22 02:04 12/03/22 02:04 12/03/22 02:04 12/03/22 02:04 12/03/22 02:04 Oxygen Delivery Method Room Air Weight: 112 kg Body Mass Index (BMI) 39.6 Intake & Output: Intake and Output for Last 24 Hours 12/01/22 12/02/22 12/03/22 23:59 23:59 23:59 Intake Total 3043 / 3043 1733.5 / 2133.5 450 / 450 Output Total 5750 / 5750 2700 / 2700 1100 / 1100 Balance -2707 / -2707 -966.5 / -566.5 -650 / -650 Lab / Micro Data Result Diagrams: 12/03/22 04:34 12/03/22 04:34 Labs: Laboratory Results - last 24 hr 12/02/22 06:30: PT 29.0 H, INR 2.8 12/02/22 06:30: Vancomycin Trough 16.6 H 12/02/22 06:30: WBC 5.2, RBC 3.92 L, Hgb 12.7 L, Hct 38.0 L, MCV 96.9 H, MCH 32.4 H, MCHC 33.4, RDW Std Deviation 50.8 H, RDW Coeff of [place] 14.2, Plt Count 327, MPV 8.8, Immature Gran % (Auto) 0.400, Neut % (Auto) 53.1, Lymph % (Auto) 28.2, Perkins % (Auto) 12.9 H, Eos % (Auto) 4.8, Baso % (Auto) 0.6, Absolute Neuts (auto) 2.8, Absolute Lymphs (auto) 1.47, Nucleated RBC % 0 12/02/22 06:30: Sodium 142, Potassium 4.1, Chloride 106, Carbon Dioxide 30.0, Anion Gap 6, BUN 17, Creatinine 0.75, Estim Creat Clear Calc 88.61, Est GFR (MDRD) Af Amer 135, Est GFR (MDRD) Non-Af 111, BUN/Creatinine Ratio 22.8 H, Glucose 112 H, Calcium 8.9 12/03/22 04:34: PT 24.1 H, INR 2.2 12/03/22 04:34: WBC 6.3, RBC 3.73 L, Hgb 11.9 L, Hct 36.5 L, MCV 97.9 H, MCH 31.9, MCHC 32.6, RDW Std Deviation 50.4 H, RDW Coeff of [place] 14.1, Plt Count 340,MPV 8.8, Immature Gran % (Auto) 0.300, Neut % (Auto) 56.5, Lymph % (Auto) 24.1, Perkins % (Auto) 11.5 H, Eos % (Auto) 6.8 H, Baso % (Auto) 0.8, Absolute Neuts (auto) 3.6, Absolute Lymphs (auto) 1.53, Nucleated RBC % 0 12/03/22 04:34: Sodium 137, Potassium 3.6, Chloride 105, Carbon Dioxide 27.0, Anion Gap 5, BUN 20 H, Creatinine 0.71, Estim Creat Clear Calc 93.60, Est GFR (MDRD) Af Amer 143, Est GFR (MDRD) Non-Af 118, BUN/Creatinine Ratio 28.1 H, Glucose 102, Calcium 8.7 Micro: Microbiology 11/30/22 15:50 Wound - Leg, Left Gram Stain - Final 11/30/22 15:50 Wound - Leg, Left Wound Culture - Preliminary Physical Exam Narrative Bilateral lower extremity venous ulcerations down to subcutaneous tissue layer - there is granular tissue, some fibrotic tissue in wound beds, margins are viable, no maloder, no fluctuance, no crepitus, no necrosis, there is diffuse LE venous stasis skin changes, there is no evidence of acute ischemia bilateral, CFT < 2 seconds to all toes. Very minimal to no cellulitis to leg, ankle or footbilateral. Assessment & Plan Assessment/Plan (1) Cellulitis and abscess of left leg: PLAN: Exam performed. Clinically legs are improving. Today dressing was changed - continue with local wound care, compression therapyand leg elevation. Patient is on antibiotics as well. Podiatry will continue to follow - will see for next dressing change which will be on Tuesday. 12/03/22 1246 <Electronically signed by Vickey Collado DPM> Vickey Collado DPM Cosigner Signature (if applicable): CC: ~ Signed [facility] Work Phone: [phone] Garcia [facility] December 03, 2022 11:14am Note Date/Time November 26, 2022 3:16pm [facility] [address] [place] [id number] Progress Note - Wound Care 11/26/22 1515 MR#: [id number] Acct: [id number] Name: ESTEBAN URBINA Rep #:[id number] : 1955 67 From: Patricia Garcia DO PCP: Dr. Patricia Garcia, DO Status:REG RCR Location: History of Present Illness Date of Service: 12/03/22 Chief Complaint: venous ulcers of bilateral lower extremities History of Wound: Mauricio is a 67 yo gentleman who is here today for evaluation of ulcers to to his bilateral lower legs. [facility]. The left LE ulcer started after he developed increased swelling and blisters of left leg in October and the right leg started sometime at the end of October. He was seen at PCP's office a culture was taken and it was resistant to several antibiotics. He was treated initially with Levaquin but had myalgias and then was treated with doxycycline which he finished 2 days ago. He denies improvementand is having swelling to his left calf and thigh. He has been having swelling to both lower extremities for many years and it has worsened over the last few months. He has not been compliant with compression. He has had increased pain especially in the left leg. He has clear yellow drainage and redness without odor or warmth. He is anti-coagulated on coumadin. He has been washing with Dial soap and witch ifrah. He had been using Collagen at times and using Calcium Alginate and covering with ABD pads during October. He was treated with 3M compression and Aquacel Ag. He was referred to the wound center for ongoing treatment. His ulcers have moderate to heavy drainage. Subjective Subjective He tolerated treatment with 3M compression but continues to have increased pain and swelling. His ulcers of his left lower leg have increased over the last week. He is scheduled to see ID 12/15/22. He felt that he had a low grade fever the last 24 hours. His pain is increasing in his left leg. He has been elevatinghis leg. He was in bed for most of the day yesterday. He denies any fever, chills, increased drainage, odor or pain. Objective Data Objective Data Vital Signs: Vital Signs Temp Pulse Resp BP 98 F 73 18 111/72 11/26/22 10:06 11/26/22 10:06 11/26/22 10:06 11/26/22 10:06 Lab / Micro Data Micro: Microbiology 11/12/22 10:30 Wound Abcess - Leg, Left Gram Stain - Final 11/12/22 10:30 Wound Abcess - Leg, Left Wound Culture - Final Stenotrophomonas maltophilia 11/12/22 10:30 Wound Abcess - Leg, Left Anaerobic Culture - Final No anaerobic bacteria isolated. Physical Exam Const alert, oriented x3 and no apparent distress General Appearance: cooperative and comfortable HEENT normocephalic and head/scalp atraumatic Lymph Lymphatic: lymphedema severe Resp normal respiratory effort Effort and Inspection: able to speak in complete sentences Cardio regular rate and regular rhythm Extremity General Extremity: edema bilateral lower extremity Details: severe Skin Wounds: wounds noted Wound Narrative: as in clinical panel Psych mental status grossly normal, thought process normal, cooperative and affect normal Debridement Note Debridement Note Wound debrided: LLE cluster Laterality: Left Type of Debridement: Excisional debridement Anesthesia Used: 4% Lidocaine Solution Depth: Down to and including healthy tissue and in the subcutaneous layer Percentage of wound debrided: 100 Instrument Used: - (Misonix) Tissue Removed: Yellow slough, devitalized tissue Severity: Fat Layer Exposed Amount of bleeding with debridement: Mild Bleeding Controlled with: Compression and gauze Patient tolerated procedure: Patient tolerated procedure well Post-Debridement Measurements and Additional Note: Post-Debridement Measurements/Treatment - Nurse 1 - General Ulcer Assessment Start: 11/12/22 09:34 Freq: Status: Active Protocol: ONDINA Activity Type Activity Date Activity User E-sign Co-sign Detail Recorded Client Recorded Date Recorded By Document 11/12/22 09:34 RB [id number] 11/12/22 09:49 RB Document 11/19/22 09:44 RB [id number] 11/19/22 10:02 RB Document 11/26/22 10:06 DL [id number] 11/26/22 10:10 DL 11/12/22 11/19/22 11/26/22 09:34 09:44 10:06 - Today's Visit Information Type of service Initial Visit Follow-up Visit Follow-up Visit (Physician/APPLICATIONS SPECIALIST (Physician/APPLICATIONS SPECIALIST ) ) Arrival Mode Ambulatory, Ambulatory Ambulatory, Walker Walker Transfer Assistance None None None Patient Identification Verified (Name & Yes Yes Yes ) Patient Requires Transmission-Based No No No Precautions Vital Signs Temperature (97.8 F-99.1 F) 96.5 F L 97 F L 98 F Temperature Source Temporal Temporal Temporal Pulse Rate (60-100) 87 84 73 Pulse Location Monitor Monitor Monitor Respiratory Rate (12-18) 18 18 18 Respiratory rate source Observation Observation Observation Blood Pressure (90/60-120/80) 130/71 H 119/64 111/72 Blood Pressure Mean (mm Hg) 90 82 85 Source Monitor Monitor Monitor Position Sitting Semi-Fowlers Blood Pressure Location Right Arm Left Arm History Since Last Visit- (Skip if this is Patient's initial visit) Have you changed medications since your No No last visit? Any new allergies or adverse reactions No No Had a fall/change in ADL's that may No No increase risk of falls Signs or symptoms of abuse and/or No No neglect since last visit Have you been in the hospital since your No No last visit? Has dressing in place as prescribed Yes Yes Has compression in place as prescribed Yes No Has offloadiing in place as prescribed No N/A Experienced any changes in pain level or No No management Left Footwear Regular Shoe Right Footwear Regular Shoe Pain Scale: 0-10 Numeric Is Patient Pain Free? No Yes Yes bilat lower legs -Description Aching -Intensity 9 -Duration (hours) Acute -Pain Behavior Withdrawal from Touch -Pain Aggravating Factors ADL's,Exercise/ Activity -Alleviating Factors/Interventions Medication -Effectiveness of Alleviating Factor/ Moderately Intervention effective WC - Nurse 1 - General Ulcer Measurement Start: 11/12/22 09:34 Freq: Status: Active Protocol: Activity Type Activity Date Activity User E-sign Co-sign Detail Recorded Client Recorded Date Recorded By Document 11/12/22 09:34 RB [id number] 11/12/22 09:49 RB Document 11/19/22 09:44 RB [id number] 11/19/22 10:02 RB Document 11/26/22 10:06 DL [id number] 11/26/22 10:10 DL 11/12/22 11/19/22 11/26/22 09:34 09:44 10:06 Wound Center Nurse 1 #17 right lateral LE cluster -Current Size (cm) - Length 2.5 -Current Size (cm) - Width 6.4 -Current Size (cm) - Depth 0.1 -Total Square Cm 16.00 -Photo Taken No -Exudate Amt Medium -Exudate Type Serosanguineous -Wound Margin Indistinct, Non -Visible -Granulation Amt Medium (34-66%) -Granulation Quality Lingle -Necrosis Amt Medium (34-66%) -Necrotic Tissue Type Adherent Slough -Structure Exposed N/A -Texture (Marie-wound Skin Appearance) Localized Edema ,Scarring -Moisture (Marie-wound Skin Appearance) Weeping -Color (Marie-wound Skin Appearance) Hemosiderin Staining -Tenderness on Palpation (Marie-wound No Skin Appearance) -Ulcer Cleansing Soap and Water -Foul Odor after Cleansing No -Anesthetic Used 4% Lidocaine Solution 16. LLE cluster -Combined with other wound No No -Current Size (cm) - Length 13.3 11.5 17 -Current Size (cm) - Width 28 3.5 30 -Current Size (cm) - Depth 0.1 0.1 0.2 -Total Square Cm 372.4 40.25 510 -Photo Taken Yes Yes No -Tunneling No No -Undermining/Tunneling No No -Circular Undermining No No -Exudate Amt Large -Exudate Type Serosanguineous Serosanguineous -Wound Margin Distinct, Indistinct, Non Outline -Visible Attached -Granulation Amt Medium (34-66%) Medium (34-66%) Medium (34-66%) -Granulation Quality Lingle Lingle Lingle -Slough/Fibrin Yes Yes -Necrosis Amt Medium (34-66%) Medium (34-66%) Medium (34-66%) -Necrotic Tissue Type Adherent Slough Adherent Slough Adherent Slough -Structure Exposed N/A N/A N/A -Texture (Marie-wound Skin Appearance) Assessed, Assessed, Excoriation, Localized Edema Localized Edema Localized Edema -Moisture (Marie-wound Skin Appearance) Assessed Assessed Weeping -Color (Marie-wound Skin Appearance) Assessed, Assessed Erythema Erythema, Hemosiderin Staining -Temperature (Marie-wound Skin No Abnormality No Abnormality No Abnormality Appearance) (Pt Warm) (Pt Warm) (Pt Warm) -Tenderness on Palpation (Marie-wound No No Yes Skin Appearance) -Ulcer Cleansing Wound Cleanser Wound Cleanser Soap and Water -Foul Odor after Cleansing No No No -Anesthetic Used 4% Lidocaine 4% Lidocaine 4% Lidocaine Solution,5% Solution Solution Lidocaine Gel 15.RLE medial -Combined with other wound No No -Current Size (cm) - Length 2 8.2 9 -Current Size (cm) - Width 3.6 8.5 8 -Current Size (cm) - Depth 0.1 0.1 0.1 -Total Square Cm 7.2 69.70 72 -Photo Taken Yes Yes No -Tunneling No No -Undermining/Tunneling No No -Circular Undermining No No -Exudate Amt Medium Medium -Exudate Type Serosanguineous Serosanguineous -Wound Margin Distinct, Indistinct, Non Outline -Visible Attached -Granulation Amt Medium (34-66%) Medium (34-66%) Medium (34-66%) -Granulation Quality Lingle Lingle Lingle -Slough/Fibrin Yes Yes -Necrosis Amt Medium (34-66%) Medium (34-66%) Medium (34-66%) -Necrotic Tissue Type Adherent Slough Adherent Slough Adherent Slough -Structure Exposed N/A N/A N/A -Texture (Marie-wound Skin Appearance) Assessed, Assessed, Localized Edema Localized Edema Localized Edema -Moisture (Marie-wound Skin Appearance) Assessed Assessed Weeping -Color (Marie-wound Skin Appearance) Assessed Assessed Hemosiderin Staining -Temperature (Marie-wound Skin No Abnormality No Abnormality No Abnormality Appearance) (Pt Warm) (Pt Warm) (Pt Warm) -Tenderness on Palpation (Marie-wound No No No Skin Appearance) -Ulcer Cleansing Wound Cleanser Wound Cleanser Soap and Water -Foul Odor after Cleansing No No No -Anesthetic Used 4% Lidocaine 4% Lidocaine 4% Lidocaine Solution,5% Solution Solution Lidocaine Gel Lower Limb Edema Present Yes Yes Right Calf (cm) 51 49.5 46 Right Ankle (cm) 31 32.9 29.5 Left Calf (cm) 52.5 50.5 48.6 Left Ankle (cm) 31 32.8 29.8 WC - Nurse 2 - General Ulcer CM Notes Start: 11/12/22 09:34 Freq: Status: Active Protocol: Activity Type Activity Date Activity User E-sign Co-sign Detail Recorded Client Recorded Date Recorded By Document 11/12/22 10:12 MW [id number] 11/12/22 10:36 MW Edit Result 11/12/22 10:12 MW (1) [id number] 11/12/22 10:37 MW Document 11/19/22 10:08 MW [id number] 11/19/22 10:30 MW Document 11/26/22 11:08 MW [id number] 11/26/22 11:29 MW (1) 15.RLE medial - Debridement - Open, 1st 20sq cm Yes => No 11/12/22 11/19/22 11/26/22 10:12 10:08 11:08 Wound Center Nurse 2 #17 right lateral LE cluster -Time 10:27 11:17 -Correct Patient Yes Yes -Correct Side, Site, Position Yes Yes -Correct Procedure Yes Yes -Procedure Performed Yes Yes -Type of Procedure Debridement Debridement -Clinical Debridement Epidermis / Subcutaneous Dermis -Tissue Removed Epidermis Subcutaneous -Post Debridement (cm) - Length 1.2 7.0 -Post Debridement (cm) - Width 1.0 2.0 -Post Debridement (cm) - Depth 0.1 0.1 -Total Square (Post) (cm) 1.20 14.00 -Area of Debridement (cm) - Length 1.2 7.0 -Area of Debridement (cm) - Width 1.0 2.0 -Total Square (Area) (cm) 1.20 14.00 -Tunneling No No -Undermining/Tunneling No No -Circular Undermining No No -Wound/Ulcer Outcome Not Healed Not Healed -Ulcer Cleansing Rinsed/ Rinsed/ Irrigated with Irrigated with Saline Saline -Foul Odor after Cleansing No No -Bioengineered Tissue No No -Bleeding Controlled with Pressure Pressure -Treatment Response Procedure Procedure Tolerated Well Tolerated Well -Offloading No No -Debridement - Open, 1st 20sq cm No -Debridement - Subq, 1st 20sq cm Yes -Debridement, SubQ, ea addt'l 20sq cm 39 or part thereof 16. LLE cluster -Time 10:12 10:08 11:17 -Correct Patient Yes Yes Yes -Correct Side, Site, Position Yes Yes Yes -Correct Procedure Yes Yes Yes -Procedure Performed Yes Yes Yes -Type of Procedure Debridement Debridement Debridement -Clinical Debridement Epidermis / Epidermis / Subcutaneous Dermis Dermis -Tissue Removed Epidermis Epidermis Subcutaneous -Post Debridement (cm) - Length 13.3 14.0 20.0 -Post Debridement (cm) - Width 28.0 25.0 36.0 -Post Debridement (cm) - Depth 0.1 0.1 0.1 -Total Square (Post) (cm) 372.40 350.00 720.00 -Area of Debridement (cm) - Length 13.3 14.0 20.0 -Area of Debridement (cm) - Width 28.0 25.0 36.0 -Total Square (Area) (cm) 372.40 350.00 720.00 -Tunneling No No No -Undermining/Tunneling No No No -Circular Undermining No No No -Wound/Ulcer Outcome Not Healed Not Healed Not Healed -Ulcer Cleansing Rinsed/ Rinsed/ Rinsed/ Irrigated with Irrigated with Irrigated with Saline Saline Saline -Foul Odor after Cleansing No No No -Bioengineered Tissue No No No -Bleeding Controlled with Pressure Pressure Pressure -Treatment Response Procedure Procedure Procedure Tolerated Well Tolerated Well Tolerated Well -Offloading No No No -Debridement - Open, 1st 20sq cm Yes Yes -Debridement, Open, ea addt'l 20sq cm 18 18 or part thereof -Debridement - Subq, 1st 20sq cm No 15.RLE medial -Time 10:12 10:08 11:17 -Correct Patient Yes Yes Yes -Correct Side, Site, Position Yes Yes Yes -Correct Procedure Yes Yes Yes -Procedure Performed Yes Yes Yes -Type of Procedure Debridement Debridement Debridement -Clinical Debridement Epidermis / Epidermis / Subcutaneous Dermis Dermis -Tissue Removed Epidermis Epidermis Subcutaneous -Post Debridement (cm) - Length 2.0 3.0 8.5 -Post Debridement (cm) - Width 3.6 3.8 7.0 -Post Debridement (cm) - Depth 0.1 0.1 0.1 -Total Square (Post) (cm) 7.20 11.40 59.50 -Area of Debridement (cm) - Length 2.0 3.0 8.5 -Area of Debridement (cm) - Width 3.6 3.8 7.0 -Total Square (Area) (cm) 7.20 11.40 59.50 -Tunneling No No No -Undermining/Tunneling No No No -Circular Undermining No No No -Wound/Ulcer Outcome Not Healed Not Healed Not Healed -Ulcer Cleansing Rinsed/ Rinsed/ Rinsed/ Irrigated with Irrigated with Irrigated with Saline Saline Saline -Foul Odor after Cleansing No No No -Bioengineered Tissue No No No -Bleeding Controlled with Pressure Pressure -Treatment Response Procedure Procedure Procedure Tolerated Well Tolerated Well Tolerated Well -Offloading No No No -Debridement - Open, 1st 20sq cm No No -Debridement - Subq, 1st 20sq cm No No Pain Scale: 0-10 Numeric Is Patient Pain Free? Yes Yes Yes WC - Nurse 3 - General Ulcer D/C NN Start: 11/12/22 09:34 Freq: Status: Active Protocol: Activity Type Activity Date Activity User E-sign Co-sign Detail Recorded Client Recorded Date Recorded By Document 11/12/22 10:40 RB [id number] 11/12/22 10:42 RB Edit Result 11/12/22 10:40 RB (1) [id number] 11/12/22 12:12 DL Document 11/19/22 11:03 RB [id number] 11/19/22 11:05 RB (1) Notes: => Pt taken over to hospital for VDU to r/o DVT. Returned to have leg wrapped after test. 11/12/22 11/19/22 10:40 11:03 Wound Care Center Nurse 3 #17 right lateral LE cluster -Ulcer Cleansing Rinsed/ Irrigated with Saline -Primary Dressing Applied Fibracol Plus 4x4 -Other Dressing abd -Fibracol Plus 4x4 1 16. LLE cluster -Ulcer Cleansing Rinsed/ Rinsed/ Irrigated with Irrigated with Saline Saline -Primary Dressing Applied Fibracol Plus Fibracol Plus 4x4 4x4,Optilok 8x12 -Other Dressing abd -Fibracol Plus 4x4 1 1 -Optilok 8x12 1 15.RLE medial -Ulcer Cleansing Rinsed/ Rinsed/ Irrigated with Irrigated with Saline Saline -Primary Dressing Applied Fibracol Plus Fibracol Plus 4x4 4x4 -Other Dressing abd abd -Fibracol Plus 4x4 1 1 bilateral -Multi-Layered Wrap Application Multi-Layer Multi-Layer Comp - Bilat ($ Comp - Bilat ($ ) ) Treatment Response Procedure Procedure Tolerated Well Tolerated Well Pain Scale: 0-10 Numeric Is Patient Pain Free? No No WC - Visit Discharge Discharge Condition Stable Stable Ambulatory Status Ambulatory, Ambulatory, Walker Walker Transportation Private Auto Private Auto Medication Reconcilliation completed & No No provided to patient/care provider Clinical Summary of Care Provided Yes Yes Notes: Pt taken over to hospital for VDU to r/o DVT . Returned to have leg wrapped after test. Additional Wound Wound debrided: right medial LE Laterality: Right Type of Debridement: Selective debridement Anesthesia Used: 4% Lidocaine Solution Depth: Down to and including healthy tissue and in the subcutaneous layer Percentage of wound debrided: 100 Instrument Used: - (gauze) Tissue Removed: Yellow slough, devitalized tissue Severity: Fat Layer Exposed Amount of bleeding with debridement: Mild Bleeding Controlled with: Compression and gauze Patient tolerated procedure: Patient tolerated procedure well Assessment/Plan Assessment/Plan (1) Ulcer of right lower extremity with fat layer exposed: CODE(S): L97.912 - Non-pressure chronic ulcer of unspecified part of rightlower leg with fat layer exposed (2) Ulcer of left lower extremity with fat layer exposed: CODE(S): L97.922 - Non-pressure chronic ulcer of unspecified part of left lower leg with fat layer exposed (3) Venous insufficiency: CODE(S): I87.2 - Venous insufficiency (chronic) (peripheral) (4) Edema: CODE(S): R60.9 - Edema, unspecified QUALIFIERS: Edema type: unspecified Qualified Code(s): R60.9 - Edema, unspecified (5) History of CVA (cerebrovascular accident): CODE(S): Z86.73 - Personal history of transient ischemic attack (TIA), andcerebral infarction without residual deficits (6) Venous ulcer of left lower extremity with varicose veins: CODE(S): I83.029 - Varicose veins of left lower extremity with ulcer of unspecified site (7) Venous ulcer of both lower extremities with varicose veins: CODE(S): I83.019 - Varicose veins of right lower extremity with ulcer of unspecified site; I83.029 - Varicose veins of left lower extremity with ulcer ofunspecified site (8) Venous ulcers of both lower extremities: CODE(S): I87.2 - Venous insufficiency (chronic) (peripheral) (9) Lymphedema: CODE(S): I89.0 - Lymphedema, not elsewhere classified PLAN: Plan Debridement performed today in clinic as annotated above. He was referred to the ER for evaluation for possible admission due to the worsening of his cellulitis and his edema. He may need IV diuretic treatment in order to assist in getting rid of the excess fluid in his legs. Hoping to get ID consult sooner through hospital admission. At home wound-care instructions: Apply ABD and wrap with gauze and KISHORE bandages. Off-loading: The patient was instructed to avoid pressure and friction on the affected areas. Reposition every 2 hours at minimum. Avoid prolonged standing and/or dangling of legs. When seated, feet should be elevated at chest level. Frequent ambulation is encouraged. Diet: Patient encouraged to increase protein intake while taking caution to avoid high carbohydrate and/or sugar intake. Labs/cultures/imaging: Culture showed Stenotrophomonas maltophilia with intermediate resistance to Levofloxacin and sensitivity to Bactrim, to which he has an allergy. and venous US ordered to rule out DVT 11/19/22 was negative for DVT. Labs showed elevated CRP and ESR normal renal function. Follow-up: Return in 1 week for wound care follow up. Return sooner or report tothe emergency room should symptoms worsen, or new symptoms arise. Note: [employer] speech recognition hair tinter software was used to create portions of this document. Sound-alike and misspelled words, as well as other hair tinter errors may be contained in the documentation. 12/03/22 1114 <Electronically signed by Patricia Garcia DO> Cosigner Signature (if applicable): CC: ~ Signed [facility] Work Phone: [phone]) 396-827502-23-[address] Erazo [facility] December 02, 2022 3:06pm Note Date/Time December 02, 2022 7:45am [facility] Medical Records Department [address] [place] [id number] Pharmacokinetic/Renal -Consult 12/02/22 0741 MR#: [id number] Acct: [id number] Name: ESTEBAN URBINA Julián Rep #:[id number] : 1955 67 From: Lenin Rubin PCP: Dr. Patricia Garcia DO Status:ADM IN Location: [place] [address] Consult Pharmacy has been consulted to manage selected antiobiotic: Vancomycin Type of Consult: Follow-up Suspected Infection: Skin/Soft tissue Prior Doses of Antibiotics Received/Current Regimen: Current dose is 1750mg iv q12h. Labs: Sodium 142 mmol/L (136-145) 12/02/22 06:30 Potassium 4.1 mmol/L (3.5-5.1) 12/02/22 06:30 Chloride 106 mmol/L (98-107) 12/02/22 06:30 Carbon Dioxide 30.0 mmol/L (21.0-32.0) 12/02/22 06:30 Anion Gap 6 (5-15) 12/02/22 06:30 BUN 17 mg/dL (7-18) 12/02/22 06:30 Creatinine 0.75 mg/dL (0.70-1.30) 12/02/22 06:30 Est GFR (MDRD) Af Amer 135 mL/min (>60) 12/02/22 06:30 Est GFR (MDRD) Non-Af 111 mL/min (>60) 12/02/22 06:30 BUN/Creatinine Ratio 22.8 RATIO (10-20) H 12/02/22 06:30 Glucose 112 mg/dL (74-106) H 12/02/22 06:30 Vancomycin Trough 16.6 ug/mL (5.0-15.0) H 12/02/22 06:30 Microbiology: Microbiology 11/30/22 15:50 Wound - Leg, Left Gram Stain - Final 11/30/22 15:50 Wound - Leg, Left Wound Culture - Preliminary No growth-Final to follow Weight used for dosin.5 kg Estimated Creatinine Clearance: 89 ml/min Goal Trough: 15-20 mcg/mL Pharmacy Plan for Drug Dosing: Trough today was 16.6 at 12.5 hrs post dose. This is within desired range of 15- 20 mcg/ml. Renal Cr reviewed at 0.75. Will continue same dose. A new trough ordered for tomorrow before another 4th dose per policy. Pharmacy Service will continue to monitor and adjust dosing as required. Follow-Up Labs: Trough Vancomycin - 2.24.23 @1830 before 1900 dose 12/02/22 0745 <Electronically signed by Lenin Rubin > Date _ Lenin Rubin 12/02/22 1506 <Electronically signed by Satya Erazo MD> Cosigner Signature (if applicable): Date Satya Erazo MD CC: ~ Signed [facility] Work Phone: [phone]) 443-742002-23-[address] Lucero [facility] December 02, 2022 2:00pm Note Date/Time December 02, 2022 8:06am [facility] Medical Records Department [facility] [place] [address] Progress Note - Hospitalist 12/02/22 4881 MR#: [id number] Acct: [id number] Name: ESTEBAN URBINA Rep #:[id number] : 1955 67 From: Wei Lucero DO PCP: Dr. Patricia Garcia DO Status:ADM IN Location: [facility] [place] [id number] Reason for Visit Reason for Visit: Diagnoses Unspecified severe protein-calorie malnutrition (11/30/22) Other chronic pain (11/30/22) Venous insufficiency (chronic) (peripheral) (11/30/22) Lymphedema, not elsewhere classified (11/30/22) Cutaneous abscess of left lower limb (11/30/22) Cutaneous abscess of limb, unspecified (11/30/22) Cellulitis of left lower limb (11/30/22) Cellulitis of unspecified part of limb (11/30/22) Non-pressure chronic ulcer of right calf with fat layer exposed (11/30/22) Non-pressure chronic ulcer of left calf with fat layer exposed (11/30/22) Unspecified fall, initial encounter (11/30/22) Subjective Subjective Asking about using his grounding pad. Objective Data Objective Data Vital Signs: Vital Signs Temp Pulse Resp BP Pulse Ox O2 Del Method 36.8 C 86 13 116/71 98 Room Air 12/02/22 02:29 12/02/22 02:29 12/02/22 02:29 12/02/22 02:29 12/02/22 02:29 12/02/22 02:29 Oxygen Delivery Method Room Air Weight: 112.5 kg Body Mass Index (BMI) 39.8 Intake & Output: Intake and Output for Last 24 Hours 11/30/22 12/01/22 12/02/22 23:59 23:59 23:59 Intake Total 590 / 590 3043 / 3043 200 / 200 Output Total 2200 / 2200 5750 / 5750 700 / 700 Balance -1610 / -1610 -2707 / -2707 -500 / -500 Lab / Micro Data Result Diagrams: 12/02/22 06:30 12/02/22 06:30 Labs: Laboratory Results - last 24 hr 12/01/22 06:10: Hemoglobin A1c 5.6 12/01/22 09:22: Phenytoin 7.5 L 12/02/22 06:30: PT 29.0 H, INR 2.8 12/02/22 06:30: Vancomycin Trough 16.6 H 12/02/22 06:30: WBC 5.2, RBC 3.92 L, Hgb 12.7 L, Hct 38.0 L, MCV 96.9 H, MCH 32.4 H, MCHC 33.4, RDW Std Deviation 50.8 H, RDW Coeff of [place] 14.2, Plt Count 327, MPV 8.8, Immature Gran % (Auto) 0.400, Neut % (Auto) 53.1, Lymph % (Auto) 28.2, Perkins % (Auto) 12.9 H, Eos % (Auto) 4.8, Baso % (Auto) 0.6, Absolute Neuts (auto) 2.8, Absolute Lymphs (auto) 1.47, Nucleated RBC % 0 12/02/22 06:30: Sodium 142, Potassium 4.1, Chloride 106, Carbon Dioxide 30.0, Anion Gap 6, BUN 17, Creatinine 0.75, Estim Creat Clear Calc 88.61, Est GFR (MDRD) Af Amer 135, Est GFR (MDRD) Non-Af 111, BUN/Creatinine Ratio 22.8 H, Glucose 112 H, Calcium 8.9 Micro: Microbiology 11/30/22 15:50 Wound - Leg, Left Gram Stain - Final 11/30/22 15:50 Wound - Leg, Left Wound Culture - Preliminary No growth-Final to follow Radiography Diagnostic Testing: Radiology Impression Tibia/Fibula X-Ray 12/01/22 08:00 IMPRESSION: Diffuse soft tissue swelling Electronically Signed: Timo Durham MD at 14:51 EST Reading Location ID and State: [facility] / [place] , Service support , Tibia/Fibula X-Ray 12/01/22 08:00 IMPRESSION: Soft tissue ulcerations. No bony abnormality is seen. Electronically Signed: Timo Durham MD at 14:51 EST , Venous Doppler Study 12/01/22 08:00 Interpretation Summary Chronic deep vein thrombosis is noted in the right common femoral vein, right femoral vein. Chronic deep vein thrombosis is noted in the left femoral vein, left popliteal vein Enlarged left inguinal lymph node noted measuring approximately 4.81cm x 1.10cm. Positive for reflux in the right common femoral vein Ordering Physician: Jason Carranza Referring Physician: Patricia Garcia Performed By: Gary Soto RVT Physical Exam Const alert and no apparent distress HEENT head/scalp atraumatic Resp normal respiratory effort, no retractions, no use of accessory muscles and clearto auscultation bilaterally Cardio regular rate, regular rhythm, S1 normal heart sound and S2 normal heart sound GI normal to inspection, nondistended, normoactive bowel sounds, soft to palpation,non-tender and non-distended Extremity Extremity Narrative: bilateral LE wrapped--did not remove. Assessment & Plan Assessment/Plan (1) Cellulitis and abscess of leg: PLAN: Unclear if this is actual cellulitis, but given his reported sensitivity, will continue to treat. Wound culture and blood cultures currently pending Antibiotics w vancomycin and Zosyn. Wound care nurse consult. (2) Lymphedema: PLAN: Bilateral lower extremity edema and bilateral lymphedema: Patient on oral furosemide at home probably not working. Started on IV furosemide 40 mg every 12 hourly. Continue as vitals and renal function remained stable. 2D echo showed EF of 70%. Enlarged left atrium. Diastolic function indeterminate. Duplex notes chronic DVT in the right common femoral vein, right femoral vein, chronic DVT in the left femoral vein and left popliteal vein. Enlarged left inguinal lymph node measuring 4.8 x 1.1 cm. Positive for reflux in the right common femoral vein. (3) Fall: PLAN: Slip and fall and small laceration of right supraorbital margin: Laceratedwound was stitched by ED physician. No loss of consciousness. Patient had CT brain which showed old left infarct of right thalamus, CT C-spine reported multilevel degenerative changes. Right Shoulder x-ray degenerative changes no acute abnormality. Abdominal pelvis CT shows mildly distended GB with multiple gallstones. IVC filter. Prostatic enlargement with indentation of bladder base. 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 On exam, patient was complaining about me touching his leg when I was not even close to touching his leg. He then stated it was because I was touching the absorbant dressing that his leg was resting on. I then made careful not when I touched that dressing that I was not actually altering it on his leg and he was complaining of pain. So his exam seem to be not consistent and proportion to exam from what I was able to gather. Continue with methadone. PLAN: Plan Chronic conditions * History of pulmonary embolism: Patient on warfarin, continued. INR therapeutic. Patient had IVC filter as reported in his abdomen pelvis CT. Monitor INR daily. * Stroke in 2008 with restricted mobility: PT and OT ordered. No new finding pertaining to stroke. * hypertension, resume lisinopril * chronic alcohol use, * lupus, on no chronic meds * seizure: Continue phenytoin. Check phenytoin level * Chronic pain: Continue to hold methadone * Self-reported electromagnetic sensitivity. Patient wanted to use his blanket to help him with the electromagnetic discharges that are pubic it was at a hospital or any facility with electricity. The device actually plugs and to allegedly absorb all electromagnetic rays. Given my unfamiliarity with this device. It told nursing that that he could wear it but not for the be plugged in so does not potentially interfere with any of the medical devices. VTE prophylaxis: On warfarin. Charges/Coding Visit Charges Inpatient E&M: 30653 Subs Hosp L2 12/02/22 1400 <Electronically signed by Wei Lucero DO> Cosigner Signature (if applicable): CC: ~ Signed [facility] Work Phone: 1([phone]) 540-538702-22-[address] Erazo [facility] December 01, 2022 6:34pm Note Date/Time November 30, 2022 9:01pm [facility] Medical Records Department [address] [place] [address] Pharmacokinetic/Renal -Consult 11/30/22 2100 MR#: [id number] Acct: [id number] Name: ESTEBAN URBINA Rep #:[id number] : 1955 67 From: Félix Perdomo [facility] PCP: Dr. Patricia Garcia, DO Status:ADM IN Location: [facility] [place] [id number] Consult Pharmacy has been consulted to manage selected antiobiotic: Vancomycin Type of Consult: New start Suspected Infection: Other Labs: Sodium 136 mmol/L (136-145) 11/30/22 08:25 Potassium 4.2 mmol/L (3.5-5.1) 11/30/22 08:25 Chloride 101 mmol/L (98-107) 11/30/22 08:25 Carbon Dioxide 29.0 mmol/L (21.0-32.0) 11/30/22 08:25 Anion Gap 6 (5-15) 11/30/22 08:25 BUN 17 mg/dL (7-18) 11/30/22 08:25 Creatinine 0.87 mg/dL (0.70-1.30) 11/30/22 08:25 Est GFR (MDRD) Af Amer 113 mL/min (>60) 11/30/22 08:25 Est GFR (MDRD) Non-Af 93 mL/min (>60) 11/30/22 08:25 BUN/Creatinine Ratio 19.5 RATIO (10-20) 11/30/22 08:25 Glucose 120 mg/dL (74-106) H 11/30/22 08:25 Goal Trough: 15-20 mcg/mL Pharmacy Plan for Drug Dosing: NEW START IV VANCOMYCIN Consulting Physician: Dr. Erazo Indication: Diabetic Foot Infection Goal Trough: 15-20 SrCr: 0.87 CrCl: 76 mls/min Comments: pt received a 2000mg loading dose on 11/30/22 at 1902 Vancomycin Dose: based on pts weight and renal function, recommend an initial dose 1750mg q12h starting 12/01/22 at 0700. Trough prior to the 4th total dose Pending Level: 12/02/22 at 0630 Pharmacy Service will continue to monitor and adjust dosing as required. Follow-Up Labs: Trough Vancomycin - 12/02/22 at 0630 11/30/22 2101 <Electronically signed by Félix Hsieh [facility]> Date _ [facility]/01/22 1834 <Electronically signed by Satya Erazo MD> Cosigner Signature (if applicable): Date Satya Erazo MD CC: ~ Signed [facility] Work Phone: 1(583) 492-338902-22-[address] Lucero [facility] December 01, 2022 1:30pm Note Date/Time December 01, 2022 7:33am [facility] Medical Records Department [address] [place] [id number] Progress Note - Hospitalist 12/01/2225 MR#: [id number] Acct: [id number] Name: ESTEBAN URBINA Rep #:[id number] : 1955 67 From: Wei Lucero DO PCP: Dr. Patricia Garcia DO Status:ADM IN Location: [address] Reason for Visit Reason for Visit: Diagnoses Venous insufficiency (chronic) (peripheral) (11/30/22) Cutaneous abscess of left lower limb (11/30/22) Cutaneous abscess of limb, unspecified (11/30/22) Cellulitis of left lower limb (11/30/22) Cellulitis of unspecified part of limb (11/30/22) Non-pressure chronic ulcer of right calf with fat layer exposed (11/30/22) Non-pressure chronic ulcer of left calf with fat layer exposed (11/30/22) Subjective Subjective Complains of severe pain on his left side due to his prior CVA and subsequent thalamic syndrome. He also states that he has electromagnetic hypersensitivity that contributes to his pain. Objective Data Objective Data Vital Signs: Vital Signs Temp Pulse Resp BP Pulse Ox O2 Del Method 37.2 C 102 H 16 124/77 H 96 Room Air 12/01/22 02:11 12/01/22 02:11 12/01/22 02:11 12/01/22 02:11 12/01/22 02:11 12/01/22 02:11 Oxygen Delivery Method Room Air Weight: 114.3 kg Body Mass Index (BMI) 40.6 Intake & Output: Intake and Output for Last 24 Hours 11/29/22 11/30/22 12/01/22 23:59 23:59 23:59 Intake Total 590 / 590 50 / 50 Output Total 2200 / 2200 2400 / 2400 Balance -1610 / -1610 -2350 / -2350 Lab / Micro Data Result Diagrams: 12/01/22 06:10 12/01/22 06:10 Labs: Laboratory Results - last 24 hr 11/30/22 08:25: WBC 6.6, RBC 4.26 L, Hgb 13.3, Hct 41.5, MCV 97.4 H, MCH 31.2, MCHC 32.0, RDW Std Deviation 50.6 H, RDW Coeff of [place] 14.2, Plt Count 417, MPV 8.9, Immature Gran % (Auto) 0.500, Neut % (Auto) 67.8, Lymph % (Auto) 17.1 L, Perkins % (Auto) 12.0 H, Eos % (Auto) 1.8, Baso % (Auto) 0.8, Absolute Neuts (auto)4.5, Absolute Lymphs (auto) 1.13, Nucleated RBC % 0 11/30/22 08:25: PT 25.2 H, INR 2.3 11/30/22 08:25: Sodium 136, Potassium 4.2, Chloride 101, Carbon Dioxide 29.0, Anion Gap 6, BUN 17, Creatinine 0.87, Estim Creat Clear Calc 76.39, Est GFR (MDRD) Af Amer 113, Est GFR (MDRD) Non-Af 93, BUN/Creatinine Ratio 19.5, [id number] H, Calcium 9.3 11/30/22 08:25: ESR 30 H 11/30/22 08:25: Total Bilirubin 0.40, Direct Bilirubin 0.14, AST 9 L, ALT 16, Alkaline Phosphatase 76, Total Protein 7.8, Albumin 3.3, Globulin 4.5 H 11/30/22 08:25: B-Natriuretic Peptide 9.6 11/30/22 15:50: S.aureus Protein A PCR NEGATIVE, MRSA (PCR) Negative 12/01/22 06:10: WBC 6.4, RBC 3.81 L, Hgb 12.2 L, Hct 37.0 L, MCV 97.1 H, MCH 32.0, MCHC 33.0, RDW Std Deviation 51.2 H, RDW Coeff of [place] 14.2, Plt Count 336,MPV 9.0, Immature Gran % (Auto) 0.200, Neut % (Auto) 61.0, Lymph % (Auto) 23.8, Perkins % (Auto) 13.8 H, Eos % (Auto) 0.6, Baso % (Auto) 0.6, Absolute Neuts (auto)3.9, Absolute Lymphs (auto) 1.52, Nucleated RBC % 0 12/01/22 06:10: PT 30.8 H, INR 3.0 Radiography Diagnostic Testing: Radiology Impression Brain CT 11/30/22 08:11 IMPRESSION: Chronic involutional changes of the brain. Old lacunar infarct of the right thalamus. Electronically Signed: Timo Durham MD at 9:10 EST , Cervical Spine CT 11/30/22 08:11 IMPRESSION: Multilevel degenerative changes, as described above. Electronically Signed: Timo Durham MD at 9:04 EST , Shoulder X-Ray 11/30/22 10:02 IMPRESSION: Degenerative changes. No acute abnormality is seen. Electronically Signed: Timo Durham MD at 11:17 EST , Abdomen/Pelvis CT 11/30/22 10:03 IMPRESSION: Mildly distended gallbladder with multiple gallstones. A filter is seen within the inferior vena cava with the evidence of multiple varicosities in the subcutaneous tissues overlying the right lower abdominal and pelvic wall as well as in the abdomen and pelvis. There has been essentially no change since prior study. Prostatic enlargement with indentation of the bladder base. Electronically Signed: Timo Durham MD at 11:17 EST , Echocardiogram 11/30/22 13:56 Interpretation Summary The study was technically difficult. Based upon the 2D echocardiographic images obtained there appears to be normal left ventricular size, wall motion, and systolic function. The estimated ejection fraction is 70 %. The left atrium is mildly enlarged. Trivial mitral valve insufficiency. Diastolic function is indeterminate. Ordering Physician: Satya Erazo Referring Physician: Patricia Garcia Performed By: Erica Solis RCS Shoulder X-Ray 11/30/22 15:55 IMPRESSION: Degenerative changes of the shoulder. There is no acute fracture or dislocation. There is continued narrowing of the acromiohumeral space with the prior study. Question rotator cuff pathology. Electronically Signed: René Coleman DO at 16:11 EST , Physical Exam Const alert and no apparent distress Neck no lymphadenopathy Resp normal respiratory effort, no retractions, no use of accessory muscles and clearto auscultation bilaterally Cardio regular rate, regular rhythm, S1 normal heart sound and S2 normal heart sound GI normal to inspection, nondistended, normoactive bowel sounds and soft to palpation Extremity Extremity Narrative: had significant sensitivity to LLE yelling for me to stop touching his leg when I was not. Sloughed skin involving his almost entirety of his lower leg with the exception of his foot. Open wounds with drainage. Neuro oriented x3 and moves all extremities Assessment & Plan Assessment/Plan (1) Cellulitis and abscess of leg: PLAN: Unclear if this is actual cellulitis, but given his reported sensitivity, will continue to treat. Wound culture with MRSA and blood cultures x2. Antibiotics w vancomycin and Zosyn. Wound care nurse consult. (2) Lymphedema: PLAN: Bilateral lower extremity edema and bilateral lymphedema: Patient on oral furosemide at home probably not working. Started on IV furosemide 40 mg every 12 hourly. 2D echo showed EF of 70%. Enlarged left atrium. Diastolic function indeterminate. (3) Fall: PLAN: Slip and fall and small laceration of right supraorbital margin: Laceratedwound was stitched by ED physician. No loss of consciousness. Patient had CT brain which showed old left infarct of right thalamus, CT C-spine reported multilevel degenerative changes. Right Shoulder x-ray degenerative changes no acute abnormality. Abdominal pelvis CT shows mildly distended GB with multiple gallstones. IVC filter. Prostatic enlargement with indentation of bladder base. 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 On exam, patient was complaining about me touching his leg when I was not even close to touching his leg. He then stated it was because I was touching the absorbant dressing that his leg was resting on. I then made careful not when I touched that dressing that I was not actually altering it on his leg and he was complaining of pain. So his exam seem to be not consistent and proportion to exam from what I was able to gather. Continue with methadone. PLAN: Plan Chronic conditions * History of pulmonary embolism: Patient on warfarin, continued. INR therapeutic. Patient had IVC filter as reported in his abdomen pelvis CT. Monitor INR daily. * Stroke in 2008 with restricted mobility: PT and OT ordered. No new finding pertaining to stroke. * hypertension, resume lisinopril * chronic alcohol use, * lupus, on no chronic meds * seizure: Continue phenytoin. Check phenytoin level * Chronic pain: Continue to hold methadone VTE prophylaxis: On warfarin. Charges/Coding Visit Charges Inpatient E&M: 63685 Subs Hosp L2 12/01/22 1330 <Electronically signed by Wei Lucero DO> Cosigner Signature (if applicable): CC: ~ Signed [facility] Work Phone: 1(310) 474-114202-22-[address] Carranza [facility] December 01, 2022 9:40am Note Date/Time December 01, 2022 9:40am [facility] Medical Records Department [address] [place] [address] Progress Note 12/01/22933 MR#: [id number] Acct: [id number] Name: ESTEBAN URBINA Rep #:[id number] : 1955 67 From: Jason Carranza DPM PCP: Dr. Patricia Garcia DO Status:ADM IN Location: MD3 FY665-4 Subjective Subjective Patient seen bedside this morning. Pain was improved until dressing change. Patient has significant pain with dressing changes. Specifically to the left lower extremity. Patient denies constitutional symptoms at current. Patient denies any chest pain calf pain shortness of breath. No new complaints. Objective Data Objective Data Vital Signs: Vital Signs Temp Pulse Resp BP Pulse Ox O2 Del Method 97.9 F 88 18 119/75 95 Room Air 12/01/22 08:00 12/01/22 08:00 12/01/22 08:00 12/01/22 08:00 12/01/22 08:00 12/01/22 08:00 Oxygen Delivery Method Room Air Weight: 114.3 kg Body Mass Index (BMI) 40.6 Intake & Output: Intake and Output for Last 24 Hours 11/29/22 11/30/22 12/01/22 23:59 23:59 23:59 Intake Total 590 / 590 50 / 50 Output Total 2200 / 2200 2400 / 2400 Balance -1610 / -1610 -2350 / -2350 Lab / Micro Data Result Diagrams: 12/01/22 06:10 12/01/22 06:10 Labs: Laboratory Results - last 24 hr 11/30/22 08:25: ESR 30 H 11/30/22 08:25: Total Bilirubin 0.40, Direct Bilirubin 0.14, AST 9 L, ALT 16, Alkaline Phosphatase 76, Total Protein 7.8, Albumin 3.3, Globulin 4.5 H 11/30/22 08:25: B-Natriuretic Peptide 9.6 11/30/22 15:50: S.aureus Protein A PCR NEGATIVE, MRSA (PCR) Negative 12/01/22 06:10: WBC 6.4, RBC 3.81 L, Hgb 12.2 L, Hct 37.0 L, MCV 97.1 H, MCH 32.0, MCHC 33.0, RDW Std Deviation 51.2 H, RDW Coeff of Checo 14.2, Plt Count 336, MPV 9.0, Immature Gran % (Auto) 0.200, Neut % (Auto) 61.0, Lymph % (Auto) 23.8, Perkins % (Auto) 13.8 H, Eos % (Auto) 0.6, Baso % (Auto) 0.6, Absolute Neuts (auto)3.9, Absolute Lymphs (auto) 1.52, Nucleated RBC % 0 12/01/22 06:10: PT 30.8 H, INR 3.0 12/01/22 06:10: Sodium 137, Potassium 3.6, Chloride 103, Carbon Dioxide 27.0, Anion Gap 7, BUN 14, Creatinine 0.79, Estim Creat Clear Calc 84.12, Est GFR (MDRD) Af Amer 126, Est GFR (MDRD) Non-Af 104, BUN/Creatinine Ratio 17.7, Glucose 107 H, Calcium 8.7, Prealbumin 16.1 L Radiography Diagnostic Testing: Radiology Impression Shoulder X-Ray 11/30/22 10:02 IMPRESSION: Degenerative changes. No acute abnormality is seen. Electronically Signed: Timo Durham MD at 11:17 EST , Abdomen/Pelvis CT 11/30/22 10:03 IMPRESSION: Mildly distended gallbladder with multiple gallstones. A filter is seen within the inferior vena cava with the evidence of multiple varicosities in the subcutaneous tissues overlying the right lower abdominal and pelvic wall as well as in the abdomen and pelvis. There has been essentially no change since prior study. Prostatic enlargement with indentation of the bladder base. Electronically Signed: Timo Durham MD at 11:17 EST , Echocardiogram 11/30/22 13:56 Interpretation Summary The study was technically difficult. Based upon the 2D echocardiographic images obtained there appears to be normal left ventricular size, wall motion, and systolic function. The estimated ejection fraction is 70 %. The left atrium is mildly enlarged. Trivial mitral valve insufficiency. Diastolic function is indeterminate. Ordering Physician: Satya Erazo Referring Physician: Patricia Garcia Performed By: Erica Solis RCS Shoulder X-Ray 11/30/22 15:55 IMPRESSION: Degenerative changes of the shoulder. There is no acute fracture or dislocation. There is continued narrowing of the acromiohumeral space with the prior study. Question rotator cuff pathology. Electronically Signed: René Coleman DO at 16:11 EST Reading Location ID and State: [facility] [place] Tel [phone], Service support , Physical Exam Narrative Edema and erythema to left lower extremity and right lower extremity significantly improved with dressing change today. Wound sites are significantly improved and appears superficial in nature. Assessment & Plan Assessment/Plan (1) Cellulitis and abscess of left leg: PLAN: Exam performed Radiographs tib-fib bilaterally negative for deep acute or chronic infection. Clinically I have no concern for abscess. This issue is likely related to cellulitis versus severe stasis dermatitis after aggressive debridement in the wound care center. Site appears significantly improved today. Patient was noncompliant with elevation while at home this likely contributed patient is continued edema and degradation of his wounds. Duplex ultrasound pending to rule out any evidence of DVT that may contribute tobilateral lower extremity swelling. Today dressing was changed. Triamcinolone ointment applied to periwound areas along with silver alginate dry sterile dressing and overlying compression wraps. This was performed bilaterally. Due to significant pain with dressing changes I recommend that we keep this dressing intact and change it again on Tuesday. If erythema edema significantly improved may turn to a every third day dressing change schedule to minimize manipulation of the painful wound sites allow for edema resolution. Patient to be evaluated again on Tuesday. 12/01/22 0940 <Electronically signed by Jason Carranza DPM> Jason Carranza DPM Cosigner Signature (if applicable): CC: ~ Signed [facility] Work Phone: [phone]) 395-664702-21-[address] Carranza [facility] November 30, 2022 6:08pm Note Date/Time November 30, 2022 6:08pm [facility] Medical Records Department [address] [place] [address] Consultation 11/30/22 1800 MR#: [id number] Acct: [id number] Name: ESTEBAN URBINA Rep #:[id number] : 1955 67 From: Jason Carranza DPM PCP: Dr. Patricia Garcia, DO Status:ADM IN Location: [place] [address] Assessment & Plan Assessment/Plan (1) Venous insufficiency (chronic) (peripheral): PLAN: Exam performed Bilateral tib-fib x-rays ordered Duplex scan ordered to rule out DVT despite chronic warfarin therapy Bilateral wounds examined left lower extremity noted to be diffusely swelling swollen relative to the right which may be related to CVA and left-sided hemiplegia. We will plan to rule out DVT on that side. left leg appears to be infected with cellulitis should respond to IV antibioticslikely will not require additional debridement. We will continue to monitor closely. Plan to await culture and sensitivity patient current relief she currently receiving IV vancomycin and Zosyn. We will plan to reexamine legs in the morning and apply new dressing. We will order triamcinolone ointment to apply to the periwound or area to assist with erythema and subcutaneous edema that may be contributing to patient's tenderness. Bilateral lower extremities today redressed with Adaptic ABD pads 4 x 4's Kerlixand Kishore bandages. We will continue to follow closely until some resolution is noted bilateral lower extremity. Patient noncompliant with elevation. Mainstay of treatment for this patient will be IV antibiotics, compression therapy, elevation. (2) Non-pressure chronic ulcer of left calf with fat layer exposed: (3) Non-pressure chronic ulcer of right calf with fat layer exposed: (4) Cellulitis and abscess of left leg: HPI Consult Data Date of Consult: 11/30/22 HPI Narrative Reason for Consultation: Bilateral leg wounds with cellulitis HPI Narrative: ESTEBAN URBINA, is a 67 M who presents to hospital with bilateral infected leg wounds. Patient has a history of chronic venous insufficiency with left side swelling greater than right side and a history of stroke with left hemiplegia. Patient on chronic Coumadin therapy. Patient denies any constitutional symptomsbut notes that her wound was debrided at the wound care center using a [place] debrider 1 week prior. After this he noticed increased pain redness swelling and drainage specifically to his left lower extremity wounds. Patient presentedto the emergency room on Tuesday of the past week 11/28/2022 at which time he was treated and discharged. Patient represented to the emergency room today with worsening of pain swelling redness and drainage to left lower extremity. Patient denies any fever chills nausea vomiting chest pain calf pain shortness of breath. Patient does admit that he maintains a dependent position with his bilateral lower extremities despite this is likely contributing to worsening of his edema. Patient has no other complaints at this time. [facility] Medical History Alcohol use History of edema History of pain when walking History of stress test Hypertension Lupus Non-smoker Pulmonary embolism Seizures Stroke/cerebrovascular accident Uses wheelchair Wears glasses Home Medications lisinopril 5 mg tablet 10 mg PO BID blood pressure 08/27/15 [History Last Taken 02/14/19 07:30] omega-3 fatty acids 500 mg capsule (Fish Oil) 1,000 mg PO DAILY supplement 08/27/15 [History Last Taken 07/01/22] Clonidine Hcl 1 tab PO BID Blood pressure\ 02/07/19 [History Last Taken 11/30/22] baclofen 10 mg tablet 10 mg PO .QID PRN Muscle Spasm 04/14/22 [History Last Taken Unknown] methadone 10 mg tablet 10 mg PO Q12H Check with primary doctor 04/14/22 [History Last Taken Unknown] niacin 50 mg tablet 25 mg PO DAILY Check with primary doctor 04/14/22 [History Last Taken Unknown] phenytoin sodium extended 100 mg capsule (Dilantin Extended) 200 mg PO DAILY Check with primary doctor 04/14/22 [History Last Taken 07/07/22 06:15] pregabalin 75 mg capsule (Lyrica) 75 mg PO TID Check with primary doctor 04/14/22 [History Last Taken Unknown] turmeric root extract 500 mg capsule 100 mg PO BID supplement 04/14/22 [History Last Taken 07/02/22] warfarin 4 mg tablet (Jantoven) 5 mg PO MOWEFR Blood thinner 04/14/22 [History Last Taken 07/01/22] warfarin 5 mg tablet (Jantoven) 5 mg PO UD blood thinner 04/14/22 [History Last Taken 07/01/22] coenzyme Q10 100 mg capsule (CoQ-10) 100 mg PO QODAY Check with primary doctor 07/02/22 [History Last Taken Unknown] ergocalciferol (vitamin D2) 1,250 mcg (50,000 unit) capsule (Vitamin D2) 1,250 mcg PO WE Check with primary doctor 07/02/22 [History Last Taken Unknown] phenytoin sodium extended 100 mg capsule (Dilantin Extended) 100 mg PO QHS Checkwith primary doctor 07/02/22 [History Last Taken Unknown] furosemide 20 mg tablet (Lasix) 20 mg PO LUNCH 07/05/22 [History Last Taken Unknown] furosemide 40 mg tablet (Lasix) 40 mg PO DAILY 07/05/22 [History Last Taken Unknown] Allergy/AdvReac Type Severity Reaction Status Date / Time duloxetine [From Cymbalta] Allergy Rash Verified 11/30/22 08:09 sulfamethoxazole Allergy Rash Verified 11/30/22 08:09 [From Bactrim] trimethoprim [From Bactrim] Allergy Rash Verified 11/30/22 08:09 ciprofloxacin [From Cipro] AdvReac PAIN IN Verified 11/30/22 08:09 FEET ciprofloxacin HCl AdvReac Rash Verified 11/30/22 08:09 [From Cipro] citalopram AdvReac SUICIDAL Verified 11/30/22 08:09 THOUGHTS gabapentin [From Neurontin] AdvReac EFFECTED Verified 11/30/22 08:09 VISION AND HEARING hydrochlorothiazide AdvReac DIZZINESS Verified 11/30/22 08:09 levetiracetam [From Keppra] AdvReac Other Verified 11/30/22 08:09 Kdgslxl-ION-[id number] Reductase AdvReac Other Verified 11/30/22 08:09 Inhibitor tramadol AdvReac Other Verified 11/30/22 08:09 Family History Father Colon cancer Hypertension Gastric ulcer Mother Heart disease Brother Diabetes Surgical History History of embolic filter insertion Hx of colonoscopy Social History household members: none Smoking Status: Never smoker alcohol intake: never substance use type: does not use ROS Constitutional Constitutional: Denies difficulty sleeping, malaise or night sweats Eyes Eyes: Denies blind spots, bloody eye or discharge from eye(s) ENT HEENT: Denies change in voice, dental pain or foreign body in nose Cardiovascular Cardiovascular: Reports cold extremities and edema; Denies arrhythmia on telemetry Respiratory/Chest Respiratory/Chest: Denies chest congestion, dyspnea on exertion or excessive phlegm production Physical Exam Narrative Patient alert oriented x3. Vascular: Dorsalis pedis posterior tibial pulses palpable to bilateral lower extremity. Diffuse pitting edema +2 on the right lower extremity +3 on the leftlower extremity. Focal increase in warmth the left lower extremity. Logic: Light touch protective sensation present to bilateral feet. Dermatologic diffuse full-thickness ulcerations to left lower extremity along the anterior medial lateral and posterior leg running from just distal to the knee to just proximal to the ankle joint. These wounds demonstrate diffuse serous drainage with a fibrogranular base. There is noted to be diffuse periwound erythema edema and warmth. Right lower extremity ulcerations demonstrate full-thickness ulcerations to lesser degree extending circumferentially to the right mid calf with mixed fibrogranular base and some sanguinous crusting. Mild periwound erythema to that site as well. Musculoskeletal: Pain palpation of left calf and popliteal fossa. No gross deformity contributing to wound formation. Some evidence of foot drop to left lower extremity. Lab / Micro Data Result Diagrams: 11/30/22 08:25 11/30/22 08:25 Labs: Laboratory Results - last 24 hr 11/30/22 08:25: WBC 6.6, RBC 4.26 L, Hgb 13.3, Hct 41.5, MCV 97.4 H, MCH 31.2, MCHC 32.0, RDW Std Deviation 50.6 H, RDW Coeff of [place] 14.2, Plt Count 417, MPV 8.9, Immature Gran % (Auto) 0.500, Neut % (Auto) 67.8, Lymph % (Auto) 17.1 L, Perkins % (Auto) 12.0 H, Eos % (Auto) 1.8, Baso % (Auto) 0.8, Absolute Neuts (auto)4.5, Absolute Lymphs (auto) 1.13, Nucleated RBC % 0 11/30/22 08:25: PT 25.2 H, INR 2.3 11/30/22 08:25: Sodium 136, Potassium 4.2, Chloride 101, Carbon Dioxide 29.0, Anion Gap 6, BUN 17, Creatinine 0.87, Estim Creat Clear Calc 76.39, Est GFR (MDRD) Af Amer 113, Est GFR (MDRD) Non-Af 93, BUN/Creatinine Ratio 19.5, [id number] H, Calcium 9.3 11/30/22 08:25: ESR 30 H 11/30/22 08:25: Total Bilirubin 0.40, Direct Bilirubin 0.14, AST 9 L, ALT 16, Alkaline Phosphatase 76, Total Protein 7.8, Albumin 3.3, Globulin 4.5 H 11/30/22 08:25: B-Natriuretic Peptide 9.6 11/30/22 15:50: S.aureus Protein A PCR NEGATIVE, MRSA (PCR) Negative Radiology Impression Brain CT 11/30/22 08:11 IMPRESSION: Chronic involutional changes of the brain. Old lacunar infarct of the right thalamus. Electronically Signed: Timo Durham MD at 9:10 EST , Cervical Spine CT 11/30/22 08:11 IMPRESSION: Multilevel degenerative changes, as described above. Electronically Signed: Timo Durham MD at 9:04 EST , Shoulder X-Ray 11/30/22 10:02 IMPRESSION: Degenerative changes. No acute abnormality is seen. Electronically Signed: Timo Durham MD at 11:17 EST , Abdomen/Pelvis CT 11/30/22 10:03 IMPRESSION: Mildly distended gallbladder with multiple gallstones. A filter is seen within the inferior vena cava with the evidence of multiple varicosities in the subcutaneous tissues overlying the right lower abdominal and pelvic wall as well as in the abdomen and pelvis. There has been essentially no change since prior study. Prostatic enlargement with indentation of the bladder base. Electronically Signed: Timo Durham MD at 11:17 EST , Echocardiogram 11/30/22 13:56 Interpretation Summary The study was technically difficult. Based upon the 2D echocardiographic images obtained there appears to be normal left ventricular size, wall motion, and systolic function. The estimated ejection fraction is 70 %. The left atrium is mildly enlarged. Trivial mitral valve insufficiency. Diastolic function is indeterminate. Ordering Physician: Satya Erazo Referring Physician: Patricia Garcia Performed By: Erica Solis RCS Shoulder X-Ray 11/30/22 15:55 IMPRESSION: Degenerative changes of the shoulder. There is no acute fracture or dislocation. There is continued narrowing of the acromiohumeral space with the prior study. Question rotator cuff pathology. Electronically Signed: René Coleman DO at 16:11 EST , 11/30/22 1808 <Electronically signed by Jason Carranza DPM> Cosigner Signature (if applicable): CC: AFIA Carranza; Dr. Patricia Garcia DO~ Signed [facility] Work Phone: 1(627) 780-354402-21-2023 History and physical note Author Dr. Erazo [facility] November 30, 2022 2:33pm Note Date/Time November 30, 2022 2:07pm [facility] Medical Records Department [address] [place] [id number] H&P Exam - Hospitalist 11/30/22 1326 MR#: [id number] Acct: [id number] Name: ESTEBAN URBINA Rep #:[id number] : 1955 67 From: Satya Urena PCP: Dr. Patricia Garcia DO Status:REG ER Location: ED HPI - General General Date of Admission: 11/30/22 Date of Service: 11/30/22 Chief Complaint: Bilateral leg cellulitis, fall and laceration of head HPI Narrative ESTEBAN URBINA, is a 67 M with history of stroke in 2008 with left-sided weaknesson wheeled walker came to ED after he slipped and fall on the drainage of his leg. He has copious large drainage from both legs, left more than right with superficial ulceration and excoriation. Patient fell forward, striking his faceand has small laceration wound on the right supraorbital margin which was stitched in the ED. No loss of consciousness, no dizziness/near syncope. He said he has drainage/seepage from laying which is started on Golf 2022 progressively worsening since then. Started with the left leg and then progressed. He is see and Ashely Lopes in wound clinic last visit on 11/26/2022 from where he was referred to ED. Diagnosis was bilateral lymphedema with venousstasis dermatitis and ulceration. Patient was sent home after blood work. Patient also lives alone and has decreased ADL and mobility. Patient denies fever or chill. No headache. Patient has severe pain over both lower legs left more than right after bandages sticks to the wound. Patient also has restricted mobility of left shoulder and elbow after stroke but got worse after fall today. Patient had CT brain which showed old left infarct of right thalamus, CT C-spine reported multilevel degenerative changes. Shoulder x-ray degenerative changes no acute abnormality. Abdominal pelvis CT shows mildly distended GB with multiple gallstones. IVC filter. Prostatic enlargement with indentation of bladder base. Patient on warfarin. INR therapeutic [facility] Medical History Alcohol use History of edema History of pain when walking History of stress test Hypertension Lupus Non-smoker Pulmonary embolism Seizures Stroke/cerebrovascular accident Uses wheelchair Wears glasses Home Medications lisinopril 5 mg tablet 10 mg PO BID blood pressure 08/27/15 [History Last Taken 02/14/19 07:30] omega-3 fatty acids 500 mg capsule (Fish Oil) 1,000 mg PO DAILY supplement 08/27/15 [History Last Taken 07/01/22] Clonidine Hcl 1 tab PO BID Blood pressure\ 02/07/19 [History Last Taken 02/14/19 07:30] baclofen 10 mg tablet 10 mg PO .QID PRN Muscle Spasm 04/14/22 [History Last Taken Unknown] methadone 10 mg tablet 10 mg PO Q12H 04/14/22 [History Last Taken Unknown] niacin 50 mg tablet 25 mg PO DAILY 04/14/22 [History Last Taken Unknown] phenytoin sodium extended 100 mg capsule (Dilantin Extended) 200 mg PO DAILY 04/14/22 [History Last Taken 07/07/22 06:15] pregabalin 75 mg capsule (Lyrica) 75 mg PO TID 04/14/22 [History Last Taken Unknown] turmeric root extract 500 mg capsule 100 mg PO BID supplement 04/14/22 [History Last Taken 07/02/22] warfarin 4 mg tablet (Jantoven) 5 mg PO MOWEFR Blood thinner 04/14/22 [History Last Taken 07/01/22] warfarin 5 mg tablet (Jantoven) 4 mg PO SUTUTHSA blood thinner 04/14/22 [History Last Taken 07/01/22] coenzyme Q10 100 mg capsule (CoQ-10) 100 mg PO QODAY 07/02/22 [History Last Taken Unknown] ergocalciferol (vitamin D2) 1,250 mcg (50,000 unit) capsule (Vitamin D2) 1,250 mcg PO WE 07/02/22 [History Last Taken Unknown] phenytoin sodium extended 100 mg capsule (Dilantin Extended) 100 mg PO QHS 07/02/22 [History Last Taken Unknown] furosemide 20 mg tablet (Lasix) 20 mg PO LUNCH 07/05/22 [History Last Taken Unknown] furosemide 40 mg tablet (Lasix) 40 mg PO DAILY 07/05/22 [History Last Taken Unknown] Allergy/AdvReac Type Severity Reaction Status Date / Time duloxetine [From Cymbalta] Allergy Rash Verified 11/30/22 08:09 sulfamethoxazole Allergy Rash Verified 11/30/22 08:09 [From Bactrim] trimethoprim [From Bactrim] Allergy Rash Verified 11/30/22 08:09 ciprofloxacin [From Cipro] AdvReac PAIN IN Verified 11/30/22 08:09 FEET ciprofloxacin HCl AdvReac Rash Verified 11/30/22 08:09 [From Cipro] citalopram AdvReac SUICIDAL Verified 11/30/22 08:09 THOUGHTS gabapentin [From Neurontin] AdvReac EFFECTED Verified 11/30/22 08:09 VISION AND HEARING hydrochlorothiazide AdvReac DIZZINESS Verified 11/30/22 08:09 levetiracetam [From Keppra] AdvReac Other Verified 11/30/22 08:09 Sjhyfta-JLF-OnZ Reductase AdvReac Other Verified 11/30/22 08:09 Inhibitor tramadol AdvReac Other Verified 11/30/22 08:09 Family History Father Colon cancer Hypertension Gastric ulcer Mother Heart disease Brother Diabetes Surgical History History of embolic filter insertion Hx of colonoscopy Social History household members: none Smoking Status: Never smoker alcohol intake: never substance use type: does not use ROS ROS Narrative Constitutional: Reports fatigue and weakness, decreased ADL, not able to take care of himself HEENT: Reports systems reviewed and no addt'l complaints, except as documented Respiratory/Chest: Denies chest pain, shortness of breath at rest or with exertion Gastrointestinal: Denies coffee ground emesis, hematemesis or vomiting Genitourinary: Chronic increased frequency.Small bladder and BPH. Denies burning urination or new urinary tract symptoms Musculoskeletal: Left-sided weakness. Chronic pain in left upper shoulder Neurologic: Denies recent seizure-like activity. Stroke with left-sided weakness. skin: As described in HPI Endocrinology: Denies diabetes mellitus. Reports systems reviewed and no addt'lcomplaints, except as documented Hematologic/Lymphatic: Bilateral lower leg lymphedema, chronic. Reports systemsreviewed and no addt'l complaints, except as documented Rest 14 ROS are negative except as mentioned in HPI Vital Signs Vital Signs Vital Signs: 11/30/22 08:02 11/30/22 08:11 11/30/22 13:19 Temperature 96.6 F L 97.9 F Temperature Source Temporal Temporal Pulse Rate 91 110 H Respiratory Rate 16 18 Respiratory Effort Normal Respiratory Depth Normal Respiratory Pattern Normal Blood Pressure 119/78 127/72 H Blood Pressure Mean 91 90 Pulse Ox 98 98 Oxygen Delivery Method Room Air Room Air 11/30/22 13:19 Temperature Temperature Source Pulse Rate 110 H Respiratory Rate 20 H Respiratory Effort Respiratory Depth Respiratory Pattern Blood Pressure 127/72 H Blood Pressure Mean 90 Pulse Ox 97 Oxygen Delivery Method Room Air Weight Weight: 261 lb 0.437 oz Body Mass Index (BMI) 42.1 Physical Exam Narrative Physical exam General: Alert, Oriented x3, Cooperative, morbid obesity BMI 42.1 kg/m?. HEENT: Small laceration over right eyebrow, stitched., PERRLA, EOMI, Normocephalic Oral: No oral bleed. No Gingival or Mucosal Lesions/ Ulcerations Neck: Supple, No JVD, Negative Carotid Bruits Lungs: Air entry diminished in bilateral lung bases. No crepitation/rhonchi Cardiovascular: Regular rate, Regular Rhythm, Normal S1, Normal S2, No murmurs Abdomen: Bowel Sounds Present, Soft, Non Tender, Non-Distended : No renal angle tenderness. No suprapubic tenderness. Extremities: Bilateral lower leg edema below knee level. Capillary Refill Less than 3 Seconds Skin: Bilateral lower leg superficial ulceration left worse than right. Greenish and purulent discharge, left worse than right. Musculoskeletal: Bilateral lower leg lymphedema, decreased mobility of both lower legs and left upper extremity. Severe tenderness over both legs, left more than right. Neurological: Chronic stroke with left-sided deficit. Mobility on wheeled walker. Psych/Mental Status: Flat affect Results Lab / Micro Data Result Diagrams: 11/30/22 08:25 11/30/22 08:25 Labs: Laboratory Results - last 24 hr 11/30/22 08:25: WBC 6.6, RBC 4.26 L, Hgb 13.3, Hct 41.5, MCV 97.4 H, MCH 31.2, MCHC 32.0, RDW Std Deviation 50.6 H, RDW Coeff of [place] 14.2, Plt Count 417, MPV 8.9, Immature Gran % (Auto) 0.500, Neut % (Auto) 67.8, Lymph % (Auto) 17.1 L, Perkins % (Auto) 12.0 H, Eos % (Auto) 1.8, Baso % (Auto) 0.8, Absolute Neuts (auto)4.5, Absolute Lymphs (auto) 1.13, Nucleated RBC % 0 11/30/22 08:25: PT 25.2 H, INR 2.3 11/30/22 08:25: Sodium 136, Potassium 4.2, Chloride 101, Carbon Dioxide 29.0, Anion Gap 6, BUN 17, Creatinine 0.87, Estim Creat Clear Calc 76.39, Est GFR (MDRD)Af Amer 113, Est GFR (MDRD) Non-Af 93, BUN/Creatinine Ratio 19.5, Glucose 120 H,Calcium 9.[address] 11/30/22 08:11 IMPRESSION: Chronic involutional changes of the brain. Old lacunar infarct of the right thalamus. Electronically Signed: Timo Durham MD at 9:10 EST , Cervical Spine CT 11/30/22 08:11 IMPRESSION: Multilevel degenerative changes, as described above. Electronically Signed: Timo Durham MD at 9:04 EST , Shoulder X-Ray 11/30/22 10:02 IMPRESSION: Degenerative changes. No acute abnormality is seen. Electronically Signed: Timo Durham MD at 11:17 EST , Abdomen/Pelvis CT 11/30/22 10:03 IMPRESSION: Mildly distended gallbladder with multiple gallstones. A filter is seen within the inferior vena cava with the evidence of multiple varicosities in the subcutaneous tissues overlying the right lower abdominal and pelvic wall as well as in the abdomen and pelvis. There has been essentially no change since prior study. Prostatic enlargement with indentation of the bladder base. Electronically Signed: Timo Durham MD at 11:17 EST Reading Location ID and State: [facility] / [place] , Service support , Assessment & Plan Assessment/Plan (1) Cellulitis and abscess of leg: PLAN: Plan This 67 old gentleman is being admitted for bilateral lower extremity cellulitiscomplicated with greenish purulent drainage and possible superficial abscess 1. Acute on chronic bilateral lower extremity cellulitis complicated with ulceration and drainage, bilateral lower extremity venous stasis and lymphedema:Patient is being admitted for on MedSurg floor. Podiatry consult. Wound culture with MRSA and blood cultures x2. Patient started on broad-spectrum IV antibiotic vancomycin and Zosyn. Wound care nurse consult. 2. Bilateral lower extremity edema and bilateral lymphedema: Patient on oral furosemide at home probably not working. Started on IV furosemide 40 mg every 12 hourly. 2D echo ordered. Patient denies any prior history of heart disease but has restricted mobility and mild shortness of breath on exertion. BNP ordered 3. Slip and fall and small laceration of right supraorbital margin: Lacerated wound was stitched by ED physician. No loss of consciousness. Patient had CT brain which showed old left infarct of right thalamus, CT C-spine reported multilevel degenerative changes. Right Shoulder x-ray degenerative changes no acute abnormality. Abdominal pelvis CT shows mildly distended GB with multiple gallstones. IVC filter. Prostatic enlargement with indentation of bladder base. 4. History of pulmonary embolism: Patient on warfarin, continued. INR therapeutic. Patient had IVC filter as reported in his abdomen pelvis CT. Monitor INR daily. 5. Stroke in 2008 with restricted mobility: PT and OT ordered. No new finding pertaining to stroke. 6. Other multiple comorbidities include hypertension, chronic alcohol use, lupus, seizure: Currently patient blood pressure is in systolic 100s to 120s therefore will hold lisinopril clonidine. Resume as blood pressure goes high more than 130. VTE prophylaxis: On warfarin. Living will/advanced directive/end of life care: Patient does have living will or advanced directive. His daughter is power of trademark attorney for health. After discussion of benefits/risks procedures involved with full code, DNR CC arrest and DNR CC, the patient opted for DNRCC arrest with no intubation Patient doesn't want artificial life support including intubation, tube feed, ventilator and/chest compression, central venous catheter, vasopressor and DC shock if needed Total time spent in [id number] encounter in discussion of advanced directive 17 minutes. Charges/Coding Visit Charges Inpatient E&M: 71551 Init Hosp L3 Procedures Hospitalists Procedures: 18133 Advncd Care Plan 30 Min 11/30/22 1433 <Electronically signed by Satya Erazo MD> Cosigner Signature (if applicable): CC: Dr. Patricia Garcia DO; Dr. Satya Erazo MD~ Signed [facility] Work Phone: 1(895) 410-429902-21-[address] White [facility] November 30, 2022 2:15pm Note Date/Time November 30, 2022 8:16am [facility] Medical Records Department [address] [place] [id number] Emergency Department Summary 11/30/22 MR#: [id number] Acct: [id number] Name: ESTEBAN URBINA Rep #:[id number] : 1955 67 From: Dasia White MD PCP: Dr. Patricia Garcia, DO Status:REG ER Location: ED HPI History of Present Illness Chief Complaint: Fall Informant: patient Onset/Context/Timing Onset: Today Narrative Narrative: Patient presents via EMS after a fall at home. He currently has cellulitis ofhis left lower extremity with oozing. He states when he went to get up this morning he did not realize that there was a puddle of fluid on the floor from his leg oozing, he slipped on this and fell forward striking his face. He did not lose consciousness. He is on Coumadin. [facility] Medical History Alcohol use History of edema History of pain when walking History of stress test Hypertension Lupus Non-smoker Pulmonary embolism Seizures Stroke/cerebrovascular accident Uses wheelchair Wears glasses Home Medications lisinopril 5 mg tablet 10 mg PO BID blood pressure 08/27/15 [History Last Taken 02/14/19 07:30] omega-3 fatty acids 500 mg capsule (Fish Oil) 1,000 mg PO DAILY supplement 08/27/15 [History Last Taken 07/01/22] Clonidine Hcl 1 tab PO BID Blood pressure\ 02/07/19 [History Last Taken 02/14/19 07:30] baclofen 10 mg tablet 10 mg PO .QID PRN Muscle Spasm 04/14/22 [History Last Taken Unknown] methadone 10 mg tablet 10 mg PO Q12H 04/14/22 [History Last Taken Unknown] niacin 50 mg tablet 25 mg PO DAILY 04/14/22 [History Last Taken Unknown] phenytoin sodium extended 100 mg capsule (Dilantin Extended) 200 mg PO DAILY 04/14/22 [History Last Taken 07/07/22 06:15] pregabalin 75 mg capsule (Lyrica) 75 mg PO TID 04/14/22 [History Last Taken Unknown] turmeric root extract 500 mg capsule 100 mg PO BID supplement 04/14/22 [History Last Taken 07/02/22] warfarin 4 mg tablet (Jantoven) 5 mg PO MOWEFR Blood thinner 04/14/22 [History Last Taken 07/01/22] warfarin 5 mg tablet (Jantoven) 4 mg PO SUTUTHSA blood thinner 04/14/22 [History Last Taken 07/01/22] coenzyme Q10 100 mg capsule (CoQ-10) 100 mg PO QODAY 07/02/22 [History Last Taken Unknown] ergocalciferol (vitamin D2) 1,250 mcg (50,000 unit) capsule (Vitamin D2) 1,250 mcg PO WE 07/02/22 [History Last Taken Unknown] phenytoin sodium extended 100 mg capsule (Dilantin Extended) 100 mg PO QHS 07/02/22 [History Last Taken Unknown] furosemide 20 mg tablet (Lasix) 20 mg PO LUNCH 07/05/22 [History Last Taken Unknown] furosemide 40 mg tablet (Lasix) 40 mg PO DAILY 07/05/22 [History Last Taken Unknown] Allergy/AdvReac Type Severity Reaction Status Date / Time duloxetine [From Cymbalta] Allergy Rash Verified 11/30/22 08:09 sulfamethoxazole Allergy Rash Verified 11/30/22 08:09 [From Bactrim] trimethoprim [From Bactrim] Allergy Rash Verified 11/30/22 08:09 ciprofloxacin [From Cipro] AdvReac PAIN IN Verified 11/30/22 08:09 FEET ciprofloxacin HCl AdvReac Rash Verified 11/30/22 08:09 [From Cipro] citalopram AdvReac SUICIDAL Verified 11/30/22 08:09 THOUGHTS gabapentin [From Neurontin] AdvReac EFFECTED Verified 11/30/22 08:09 VISION AND HEARING hydrochlorothiazide AdvReac DIZZINESS Verified 11/30/22 08:09 levetiracetam [From Keppra] AdvReac Other Verified 11/30/22 08:09 Plitaft-[id number]-IwJ Reductase AdvReac Other Verified 11/30/22 08:09 Inhibitor tramadol AdvReac Other Verified 11/30/22 08:09 Family History Father Colon cancer Hypertension Gastric ulcer Mother Heart disease Brother Diabetes Surgical History History of embolic filter insertion Hx of colonoscopy Social History household members: none Smoking Status: Never smoker alcohol intake: never substance use type: does not use ROS ROS ED Constitutional Constitutional ED: Denies chills or fever(s) Eyes Eyes: Denies change in vision or discharge from eye(s) ENT ENT ED: Reports other Details: Right forehead laceration and edema. ; Denies discharge from eye(s), rhinorrhea or sore throat Cardiovascular Cardiovascular: Denies chest pain or palpitations Respiratory/Chest Respiratory/Chest: Denies cough or dyspnea Gastrointestinal Gastrointestinal: Denies abdominal pain, nausea or vomiting Genitourinary Genitourinary ED: Denies difficulty urinating or dysuria Musculoskeletal Musculoskeletal: Denies back pain or extremity pain Integumentary Reports other Details: Cellulitis left lower extremity ; Denies Abrasions or rash Neurologic Neurologic: Denies headache(s) or weakness Psychiatric Psychiatric: Denies anxiety or depression Allergic/Immunologic Allergic/Immunologic ED: Denies lip swelling or urticaria EXAM Physical Exam Const Vital Signs: 11/30/22 08:02 11/30/22 08:11 11/30/22 13:19 Temperature 96.6 F L 97.9 F Temperature Source Temporal Temporal Pulse Rate 91 110 H Respiratory Rate 16 18 Respiratory Effort Normal Respiratory Depth Normal Respiratory Pattern Normal Blood Pressure 119/78 127/72 H Blood Pressure Mean 91 90 Pulse Ox 98 98 Oxygen Delivery Method Room Air Room Air 11/30/22 13:19 Temperature Temperature Source Pulse Rate 110 H Respiratory Rate 20 H Respiratory Effort Respiratory Depth Respiratory Pattern Blood Pressure 127/72 H Blood Pressure Mean 90 Pulse Ox 97 Oxygen Delivery Method Room Air Positive well nourished and well developed General Appearance ED: well developed HEENT Reports moist mucous membranes HEENT Narrative: 2 cm laceration just superior to the right eyebrow. Mild surrounding edema. Nosignificant active bleeding at this time. Extraocular movements are fully intact. Eyes PERRL and EOMs intact bilaterally Neck no lymphadenopathy Chest Wall inspection of chest normal and palpation of chest normal Resp normal respiratory effort and clear to auscultation bilaterally Cardio regular rate and regular rhythm GI non-tender Auscultation: normoactive bowel sounds Palpation: soft Extremity Extremity Narrative: Chronic venous skin changes to the left lower extremity with oozing. Neuro oriented x3 Neuro Narrative: Chronic left arm weakness from prior stroke Psych mental status grossly normal Skin Skin Narrative: As noted above. MDM MDM MDM Narrative Medical decision making narrative: Lab work obtained to evaluate for anemia, electrolyte derangement, INR value. Patient sent for CT scan of the head and C-spine given his fall with laceration and on anticoagulant. Lab Data Attestation: I reviewed the patient's lab results. Labs: Laboratory Results - last 24 hr 11/30/22 11/30/22 11/30/22 08:25 08:25 08:25 WBC 6.6 RBC 4.26 L Hgb 13.3 Hct 41.5 MCV 97.4 H MCH 31.2 MCHC 32.0 RDW Std Deviation 50.6 H RDW Coeff of [place] 14.2 Plt Count 417 MPV 8.9 Immature Gran % (Auto) 0.500 Neut % (Auto) 67.8 Lymph % (Auto) 17.1 L Perkins % (Auto) 12.0 H Eos % (Auto) 1.8 Baso % (Auto) 0.8 Absolute Neuts (auto) 4.5 Absolute Lymphs (auto) 1.13 Nucleated RBC % 0 PT 25.2 H INR 2.3 Sodium 136 Potassium 4.2 Chloride 101 Carbon Dioxide 29.0 Anion Gap 6 BUN 17 Creatinine 0.87 Estim Creat Clear Calc 76.39 Est GFR (MDRD) Af Amer 113 Est GFR (MDRD) Non-Af 93 BUN/Creatinine Ratio 19.5 Glucose 120 H Calcium 9.3 Radiography Diagnostic Testing: Clinical Impression(s) from Imaging Studies Brain CT 11/30/22 08:11 IMPRESSION: Chronic involutional changes of the brain. Old lacunar infarct of the right thalamus. Electronically Signed: Timo Durham MD at 9:10 EST , Cervical Spine CT 11/30/22 08:11 IMPRESSION: Multilevel degenerative changes, as described above. Electronically Signed: Timo Durham MD at 9:04 EST , Shoulder X-Ray 11/30/22 10:02 IMPRESSION: Degenerative changes. No acute abnormality is seen. Electronically Signed: Timo Durham MD at 11:17 EST , Abdomen/Pelvis CT 11/30/22 10:03 IMPRESSION: Mildly distended gallbladder with multiple gallstones. A filter is seen within the inferior vena cava with the evidence of multiple varicosities in the subcutaneous tissues overlying the right lower abdominal and pelvic wall as well as in the abdomen and pelvis. There has been essentially no change since prior study. Prostatic enlargement with indentation of the bladder base. Electronically Signed: Timo Durham MD at 11:17 EST , Treatment and Re-Evaluation Narrative: CBC and chemistry studies are unremarkable. INR is therapeutic at 2.3. CT scanof the head shows chronic changes with no acute findings. CT of the C-spine shows degenerative changes. Patient's right forehead laceration was anesthetized with 2 cc of 2% lidocaine. Wound was cleansed. 2 simple interpreted sutures of 5-0 nylon are placed with good approximation. Patient's tetanus was updated. While lying in the bed patient started to develop increased pain from his fall including pain around the left flank area as well as his right shoulder. Right shoulder x-rays are obtained and per my interpretation reveal chronic changes with no acute fracture. Radiology interpretation is reviewed. CT of the flank reveals a mildly distended gallbladder with multiple gallstones and a an IVC filter. There is been no change when compared to prior study. Patient is on methadone chronically. He was given a dose of oxycodone here which he states he will take for breakthrough pain. At this time patient reports he is still having too much pain to be able to adequately care for himself. [facility] independent living [facility]. I will speak with hospitalist regarding admission for pain control and physical therapy. Patient is open to the possibility that he may need to goto the group home portion for physical therapy for short-term to get his strength build up. His leg wounds appear chronic with venous skin changes. I do not appreciate any sign of secondary infection at this time. Dressing will be applied once evaluated by hospitalist. Discharge Plan Dx/Rx/DC Orders Clinical Impression: Fall, Laceration of forehead, Contusion of right shoulder, Abdominal contusion,Leg wound, left Disposition Disposition: Acute Care Hospital [facility] What to do if you have Problems For any increased pain, shortness of breath, bleeding, nausea or vomiting, chestpain, or any unexpected problems, contact your Primary Care Provider. Call [facility] ([phone]) or report to the closest Emergency Room. Call 911 if necessary. 11/30/22 [id number] <Electronically signed by Dasia White MD> Cosigner Signature (if applicable): CC: Dr. Patricia Garcia DO ~ Signed [facility] Work Phone: 1(752) 292-560102-21-[address] White [facility] November 30, 2022 2:15pm Note Date/Time November 30, 2022 8:16am [facility] Medical Records Department [address] [place] [address] Emergency Department Summary 11/30/22 MR#: [id number] Acct: [id number] Name: ESTEBAN URBINA Rep #:[id number] : 1955 67 From: Dasia White MD PCP: Dr. Patricia Garcia DO Status:REG ER Location: ED HPI History of Present Illness Chief Complaint: Fall Informant: patient Onset/Context/Timing Onset: Today Narrative Narrative: Patient presents via EMS after a fall at home. He currently has cellulitis ofhis left lower extremity with oozing. He states when he went to get up this morning he did not realize that there was a puddle of fluid on the floor from his leg oozing, he slipped on this and fell forward striking his face. He did not lose consciousness. He is on Coumadin. [facility] Medical History Alcohol use History of edema History of pain when walking History of stress test Hypertension Lupus Non-smoker Pulmonary embolism Seizures Stroke/cerebrovascular accident Uses wheelchair Wears glasses Home Medications lisinopril 5 mg tablet 10 mg PO BID blood pressure 08/27/15 [History Last Taken 02/14/19 07:30] omega-3 fatty acids 500 mg capsule (Fish Oil) 1,000 mg PO DAILY supplement 08/27/15 [History Last Taken 07/01/22] Clonidine Hcl 1 tab PO BID Blood pressure\ 02/07/19 [History Last Taken 02/14/19 07:30] baclofen 10 mg tablet 10 mg PO .QID PRN Muscle Spasm 04/14/22 [History Last Taken Unknown] methadone 10 mg tablet 10 mg PO Q12H 04/14/22 [History Last Taken Unknown] niacin 50 mg tablet 25 mg PO DAILY 04/14/22 [History Last Taken Unknown] phenytoin sodium extended 100 mg capsule (Dilantin Extended) 200 mg PO DAILY 04/14/22 [History Last Taken 07/07/22 06:15] pregabalin 75 mg capsule (Lyrica) 75 mg PO TID 04/14/22 [History Last Taken Unknown] turmeric root extract 500 mg capsule 100 mg PO BID supplement 04/14/22 [History Last Taken 07/02/22] warfarin 4 mg tablet (Jantoven) 5 mg PO MOWEFR Blood thinner 04/14/22 [History Last Taken 07/01/22] warfarin 5 mg tablet (Jantoven) 4 mg PO SUTUTHSA blood thinner 04/14/22 [History Last Taken 07/01/22] coenzyme Q10 100 mg capsule (CoQ-10) 100 mg PO QODAY 07/02/22 [History Last Taken Unknown] ergocalciferol (vitamin D2) 1,250 mcg (50,000 unit) capsule (Vitamin D2) 1,250 mcg PO WE 07/02/22 [History Last Taken Unknown] phenytoin sodium extended 100 mg capsule (Dilantin Extended) 100 mg PO QHS 07/02/22 [History Last Taken Unknown] furosemide 20 mg tablet (Lasix) 20 mg PO LUNCH 07/05/22 [History Last Taken Unknown] furosemide 40 mg tablet (Lasix) 40 mg PO DAILY 07/05/22 [History Last Taken Unknown] Allergy/AdvReac Type Severity Reaction Status Date / Time [facility]ox[facility] Allergy Rash Verified 11/30/22 08:09 sulfamethoxazole Allergy Rash Verified 11/30/22 08:09 [From Bactrim] trimethoprim [From Bactrim] Allergy Rash Verified 11/30/22 08:09 ciprofloxacin [From Cipro] AdvReac PAIN IN Verified 11/30/22 08:09 FEET ciprofloxacin HCl AdvReac Rash Verified 11/30/22 08:09 [From Cipro] citalopram AdvReac SUICIDAL Verified 11/30/22 08:09 THOUGHTS gabapentin [From Neurontin] AdvReac EFFECTED Verified 11/30/22 08:09 VISION AND HEARING hydrochlorothiazide AdvReac DIZZINESS Verified 11/30/22 08:09 levetiracetam [From Keppra] AdvReac Other Verified 11/30/22 08:09 Cgtoums-RCM-UoF Reductase AdvReac Other Verified 11/30/22 08:09 Inhibitor tramadol AdvReac Other Verified 11/30/22 08:09 Family History Father Colon cancer Hypertension Gastric ulcer Mother Heart disease Brother Diabetes Surgical History History of embolic filter insertion Hx of colonoscopy Social History household members: none Smoking Status: Never smoker alcohol intake: never substance use type: does not use ROS ROS ED Constitutional Constitutional ED: Denies chills or fever(s) Eyes Eyes: Denies change in vision or discharge from eye(s) ENT ENT ED: Reports other Details: Right forehead laceration and edema. ; Denies discharge from eye(s), rhinorrhea or sore throat Cardiovascular Cardiovascular: Denies chest pain or palpitations Respiratory/Chest Respiratory/Chest: Denies cough or dyspnea Gastrointestinal Gastrointestinal: Denies abdominal pain, nausea or vomiting Genitourinary Genitourinary ED: Denies difficulty urinating or dysuria Musculoskeletal Musculoskeletal: Denies back pain or extremity pain Integumentary Reports other Details: Cellulitis left lower extremity ; Denies Abrasions or rash Neurologic Neurologic: Denies headache(s) or weakness Psychiatric Psychiatric: Denies anxiety or depression Allergic/Immunologic Allergic/Immunologic ED: Denies lip swelling or urticaria EXAM Physical Exam Const Vital Signs: 11/30/22 08:02 11/30/22 08:11 11/30/22 13:19 Temperature 96.6 F L 97.9 F Temperature Source Temporal Temporal Pulse Rate 91 110 H Respiratory Rate 16 18 Respiratory Effort Normal Respiratory Depth Normal Respiratory Pattern Normal Blood Pressure 119/78 127/72 H Blood Pressure Mean 91 90 Pulse Ox 98 98 Oxygen Delivery Method Room Air Room Air 11/30/22 13:19 Temperature Temperature Source Pulse Rate 110 H Respiratory Rate 20 H Respiratory Effort Respiratory Depth Respiratory Pattern Blood Pressure 127/72 H Blood Pressure Mean 90 Pulse Ox 97 Oxygen Delivery Method Room Air Positive well nourished and well developed General Appearance ED: well developed HEENT Reports moist mucous membranes HEENT Narrative: 2 cm laceration just superior to the right eyebrow. Mild surrounding edema. Nosignificant active bleeding at this time. Extraocular movements are fully intact. Eyes PERRL and EOMs intact bilaterally Neck no lymphadenopathy Chest Wall inspection of chest normal and palpation of chest normal Resp normal respiratory effort and clear to auscultation bilaterally Cardio regular rate and regular rhythm GI non-tender Auscultation: normoactive bowel sounds Palpation: soft Extremity Extremity Narrative: Chronic venous skin changes to the left lower extremity with oozing. Neuro oriented x3 Neuro Narrative: Chronic left arm weakness from prior stroke Psych mental status grossly normal Skin Skin Narrative: As noted above. MDM MDM MDM Narrative Medical decision making narrative: Lab work obtained to evaluate for anemia, electrolyte derangement, INR value. Patient sent for CT scan of the head and C-spine given his fall with laceration and on anticoagulant. Lab Data Attestation: I reviewed the patient's lab results. Labs: Laboratory Results - last 24 hr 11/30/22 11/30/22 11/30/22 08:25 08:25 08:25 WBC 6.6 RBC 4.26 L Hgb 13.3 Hct 41.5 MCV 97.4 H MCH 31.2 MCHC 32.0 RDW Std Deviation 50.6 H RDW Coeff of [place] 14.2 Plt Count 417 MPV 8.9 Immature Gran % (Auto) 0.500 Neut % (Auto) 67.8 Lymph % (Auto) 17.1 L Perkins % (Auto) 12.0 H Eos % (Auto) 1.8 Baso % (Auto) 0.8 Absolute Neuts (auto) 4.5 Absolute Lymphs (auto) 1.13 Nucleated RBC % 0 PT 25.2 H INR 2.3 Sodium 136 Potassium 4.2 Chloride 101 Carbon Dioxide 29.0 Anion Gap 6 BUN 17 Creatinine 0.87 Estim Creat Clear Calc 76.39 Est GFR (MDRD) Af Amer 113 Est GFR (MDRD) Non-Af 93 BUN/Creatinine Ratio 19.5 Glucose 120 H Calcium 9.3 Radiography Diagnostic Testing: Clinical Impression(s) from Imaging Studies Brain CT 11/30/22 08:11 IMPRESSION: Chronic involutional changes of the brain. Old lacunar infarct of the right thalamus. Electronically Signed: Timo Durham MD at 9:10 EST Reading Location ID and State: [id number] / [employer] , Service support , Cervical Spine CT 11/30/22 08:11 IMPRESSION: Multilevel degenerative changes, as described above. Electronically Signed: Timo Durham MD at 9:04 EST Reading Location ID and State: [id number] / [employer] , Service support , Shoulder X-Ray 11/30/22 10:02 IMPRESSION: Degenerative changes. No acute abnormality is seen. Electronically Signed: Timo Durham MD at 11:17 EST Reading Location ID and State: 603 / [employer] , Service support , Abdomen/Pelvis CT 11/30/22 10:03 IMPRESSION: Mildly distended gallbladder with multiple gallstones. A filter is seen within the inferior vena cava with the evidence of multiple varicosities in the subcutaneous tissues overlying the right lower abdominal and pelvic wall as well as in the abdomen and pelvis. There has been essentially no change since prior study. Prostatic enlargement with indentation of the bladder base. Electronically Signed: Timo Durham MD at 11:17 EST Reading Location ID and State: [id number] / [employer] , Service support , Treatment and Re-Evaluation Narrative: CBC and chemistry studies are unremarkable. INR is therapeutic at 2.3. CT scanof the head shows chronic changes with no acute findings. CT of the C-spine shows degenerative changes. Patient's right forehead laceration was anesthetized with 2 cc of 2% lidocaine. Wound was cleansed. 2 simple interpreted sutures of 5-0 nylon are placed with good approximation. Patient's tetanus was updated. While lying in the bed patient started to develop increased pain from his fall including pain around the left flank area as well as his right shoulder. Right shoulder x-rays are obtained and per my interpretation reveal chronic changes with no acute fracture. Radiology interpretation is reviewed. CT of the flank reveals a mildly distended gallbladder with multiple gallstones and a an IVC filter. There is been no change when compared to prior study. Patient is on methadone chronically. He was given a dose of oxycodone here which he states he will take for breakthrough pain. At this time patient reports he is still having too much pain to be able to adequately care for himself. [facility] of [facility] independent living apartments. I will speak with hospitalist regarding admission for pain control and physical therapy. Patient is open to the possibility that he may need to goto the group home portion for physical therapy for short-term to get his strength build up. His leg wounds appear chronic with venous skin changes. I do not appreciate any sign of secondary infection at this time. Dressing will be applied once evaluated by hospitalist. Discharge Plan Dx/Rx/DC Orders Clinical Impression: Fall, Laceration of forehead, Contusion of right shoulder, Abdominal contusion,Leg wound, left Disposition Disposition: Acute Care Hospital [facility] What to do if you have Problems For any increased pain, shortness of breath, bleeding, nausea or vomiting, chestpain, or any unexpected problems, contact your Primary Care Provider. Call [facility] ([phone]) or report to the closest Emergency Room. Call 911 if necessary. 11/30/22 1415 <Electronically signed by Dasia White MD> Cosigner Signature (if applicable): CC: Dr. Patricia Garcia, DO ~ Signed [facility] Work Phone: [phone] 780-617502-17-[address] Garcia [facility] November 26, 2022 2:30pm Note Date/Time November 19, 2022 2:18pm [facility] [address] [place] [address] Progress Note - Wound Care 11/19/22 1418 MR#: [id number] Acct: [id number] Name: ESTEBAN URBINA Rep #:[id number] : 1955 67 From: Patricia Garcia DO PCP: Dr. Patricia Garcia, DO Status:REG RCR Location: History of Present Illness Date of Service: 11/19/22 Chief Complaint: venous ulcers of bilateral lower extremities History of Wound: Mauricio is a 67 yo gentleman who is here today for evaluation of ulcers to to his bilateral lower legs. [facility]. The left LE ulcer started after he developed increased swelling and blisters of left leg in October and the right leg started sometime at the end of October. He was seen at PCP's office a culture was taken and it was resistant to several antibiotics. He was treated initially with Levaquin but had myalgias and then was treated with doxycycline which he finished 2 days ago. He denies improvementand is having swelling to his left calf and thigh. He has been having swelling to both lower extremities for many years and it has worsened over the last few months. He has not been compliant with compression. He has had increased pain especially in the left leg. He has clear yellow drainage and redness without odor or warmth. He is anti-coagulated on coumadin. He has been washing with Dial soap and witch ifrah. He had been using Collagen at times and using Calcium Alginate and covering with ABD pads during October. He was treated with 3M compression and Aquacel Ag. He was referred to the wound center for ongoing treatment. His ulcers have moderate to heavy drainage. Subjective Subjective He tolerated treatment with 3M compression but has had increased pain and swelling. He denies any fever, chills, increased drainage, odor or pain. Objective Data Objective Data Vital Signs: Vital Signs Temp Pulse Resp BP 97 F L 84 18 119/64 11/19/22 09:44 11/19/22 09:44 11/19/22 09:44 11/19/22 09:44 Lab / Micro Data Micro: Microbiology 11/12/22 10:30 Wound Abcess - Leg, Left Gram Stain - Final 11/12/22 10:30 Wound Abcess - Leg, Left Wound Culture - Final Stenotrophomonas maltophilia 11/12/22 10:30 Wound Abcess - Leg, Left Anaerobic Culture - Final No anaerobic bacteria isolated. Physical Exam Const alert, oriented x3 and no apparent distress General Appearance: cooperative and comfortable HEENT normocephalic and head/scalp atraumatic Lymph Lymphatic: lymphedema severe Resp normal respiratory effort Effort and Inspection: able to speak in complete sentences Cardio regular rate and regular rhythm Extremity General Extremity: edema bilateral lower extremity Details: severe Skin Wounds: wounds noted Wound Narrative: as in clinical panel Psych mental status grossly normal, thought process normal, cooperative and affect normal Debridement Note Debridement Note Wound debrided: LLE cluster Laterality: Left Type of Debridement: Selective debridement Anesthesia Used: 4% Lidocaine Solution Depth: Down to and including healthy tissue and in the subcutaneous layer Percentage of wound debrided: 100 Instrument Used: - (gauze) Tissue Removed: Yellow slough, devitalized tissue Severity: Fat Layer Exposed Amount of bleeding with debridement: Mild Bleeding Controlled with: Compression and gauze Patient tolerated procedure: Patient tolerated procedure well Post-Debridement Measurements and Additional Note: Post-Debridement Measurements/Treatment - Nurse 1 - General Ulcer Assessment Start: 11/12/22 09:34 Freq: Status: Active Protocol: [email or web address] Activity Type Activity Date Activity User E-sign Co-sign Detail Recorded Client Recorded Date Recorded By Document 11/12/22 09:34 [id number] 11/12/22 09:49 RB Document 11/19/22 09:44 RB [id number] 11/19/22 10:02 RB 11/12/22 11/19/22 09:34 09:44 - Today's Visit Information Type of service Initial Visit Follow-up Visit (Physician/APPLICATIONS SPECIALIST ) Arrival Mode Ambulatory, Ambulatory Walker Transfer Assistance None None Patient Identification Verified (Name & Yes Yes ) Patient Requires Transmission-Based No No Precautions Vital Signs Temperature (97.8 F-99.1 F) 96.5 F L 97 F L Temperature Source Temporal Temporal Pulse Rate (60-100) 87 84 Pulse Location Monitor Monitor Respiratory Rate (12-18) 18 18 Respiratory rate source Observation Observation Blood Pressure (90/60-120/80) 130/71 H 119/64 Blood Pressure Mean (mm Hg) 90 82 Source Monitor Monitor Position Sitting Semi-Fowlers Blood Pressure Location Right Arm Left Arm History Since Last Visit- (Skip if this is Patient's initial visit) Have you changed medications since your No last visit? Any new allergies or adverse reactions No Had a fall/change in ADL's that may No increase risk of falls Signs or symptoms of abuse and/or No neglect since last visit Have you been in the hospital since your No last visit? Has dressing in place as prescribed Yes Has compression in place as prescribed Yes Has offloadiing in place as prescribed No Experienced any changes in pain level or No management Left Footwear Regular Shoe Right Footwear Regular Shoe Pain Scale: 0-10 Numeric Is Patient Pain Free? No Yes bilat lower legs -Description Aching -Intensity 9 -Duration (hours) Acute -Pain Behavior Withdrawal from Touch -Pain Aggravating Factors ADL's,Exercise/ Activity -Alleviating Factors/Interventions Medication -Effectiveness of Alleviating Factor/ Moderately Intervention effective WC - Nurse 1 - General Ulcer Measurement Start: 11/12/22 09:34 Freq: Status: Active Protocol: Activity Type Activity Date Activity User E-sign Co-sign Detail Recorded Client Recorded Date Recorded By Document 11/12/22 09:34 RB [id number] 11/12/22 09:49 RB Document 11/19/22 09:44 RB [id number] 11/19/22 10:02 RB 11/12/22 11/19/22 09:34 09:44 Wound Center Nurse 1 16. LLE cluster -Combined with other wound No No -Current Size (cm) - Length 13.3 11.5 -Current Size (cm) - Width 28 3.5 -Current Size (cm) - Depth 0.1 0.1 -Total Square Cm 372.4 40.25 -Photo Taken Yes Yes -Tunneling No No -Undermining/Tunneling No No -Circular Undermining No No -Exudate Type Serosanguineous -Wound Margin Distinct, Outline Attached -Granulation Amt Medium (34-66%) Medium (34-66%) -Granulation Quality Lingle Lingle -Slough/Fibrin Yes Yes -Necrosis Amt Medium (34-66%) Medium (34-66%) -Necrotic Tissue Type Adherent Slough Adherent Slough -Structure Exposed N/A N/A -Texture (Marie-wound Skin Appearance) Assessed, Assessed, Localized Edema Localized Edema -Moisture (Marie-wound Skin Appearance) Assessed Assessed -Color (Marie-wound Skin Appearance) Assessed, Assessed Erythema, Hemosiderin Staining -Temperature (Marie-wound Skin No Abnormality No Abnormality Appearance) (Pt Warm) (Pt Warm) -Tenderness on Palpation (Marie-wound No No Skin Appearance) -Ulcer Cleansing Wound Cleanser Wound Cleanser -Foul Odor after Cleansing No No -Anesthetic Used 4% Lidocaine 4% Lidocaine Solution,5% Solution Lidocaine Gel 15.RLE medial -Combined with other wound No No -Current Size (cm) - Length 2 8.2 -Current Size (cm) - Width 3.6 8.5 -Current Size (cm) - Depth 0.1 0.1 -Total Square Cm 7.2 69.70 -Photo Taken Yes Yes -Tunneling No No -Undermining/Tunneling No No -Circular Undermining No No -Exudate Amt Medium -Exudate Type Serosanguineous -Wound Margin Distinct, Outline Attached -Granulation Amt Medium (34-66%) Medium (34-66%) -Granulation Quality Lingle Lingle -Slough/Fibrin Yes Yes -Necrosis Amt Medium (34-66%) Medium (34-66%) -Necrotic Tissue Type Adherent Slough Adherent Slough -Structure Exposed N/A N/A -Texture (Marie-wound Skin Appearance) Assessed, Assessed, Localized Edema Localized Edema -Moisture (Marie-wound Skin Appearance) Assessed Assessed -Color (Marie-wound Skin Appearance) Assessed Assessed -Temperature (Marie-wound Skin No Abnormality No Abnormality Appearance) (Pt Warm) (Pt Warm) -Tenderness on Palpation (Marie-wound No No Skin Appearance) -Ulcer Cleansing Wound Cleanser Wound Cleanser -Foul Odor after Cleansing No No -Anesthetic Used 4% Lidocaine 4% Lidocaine Solution,5% Solution Lidocaine Gel Lower Limb Edema Present Yes Yes Right Calf (cm) 51 49.5 Right Ankle (cm) 31 32.9 Left Calf (cm) 52.5 50.5 Left Ankle (cm) 31 32.8 WC - Nurse 2 - General Ulcer CM Notes Start: 11/12/22 09:34 Freq: Status: Active Protocol: Activity Type Activity Date Activity User E-sign Co-sign Detail Recorded Client Recorded Date Recorded By Document 11/12/22 10:12 MW [id number] 11/12/22 10:36 MW Edit Result 11/12/22 10:12 MW (1) [id number] 11/12/22 10:37 MW Document 11/19/22 10:08 MW [id number] 11/19/22 10:30 MW (1) 15.RLE medial - Debridement - Open, 1st 20sq cm Yes => No 11/12/22 11/19/22 10:12 10:08 Wound Center Nurse 2 #17 right lateral LE cluster -Time 10:27 -Correct Patient Yes -Correct Side, Site, Position Yes -Correct Procedure Yes -Procedure Performed Yes -Type of Procedure Debridement -Clinical Debridement Epidermis / Dermis -Tissue Removed Epidermis -Post Debridement (cm) - Length 1.2 -Post Debridement (cm) - Width 1.0 -Post Debridement (cm) - Depth 0.1 -Total Square (Post) (cm) 1.20 -Area of Debridement (cm) - Length 1.2 -Area of Debridement (cm) - Width 1.0 -Total Square (Area) (cm) 1.20 -Tunneling No -Undermining/Tunneling No -Circular Undermining No -Wound/Ulcer Outcome Not Healed -Ulcer Cleansing Rinsed/ Irrigated with Saline -Foul Odor after Cleansing No -Bioengineered Tissue No -Bleeding Controlled with Pressure -Treatment Response Procedure Tolerated Well -Offloading No -Debridement - Open, 1st 20sq cm No 16. LLE cluster -Time 10:12 10:08 -Correct Patient Yes Yes -Correct Side, Site, Position Yes Yes -Correct Procedure Yes Yes -Procedure Performed Yes Yes -Type of Procedure Debridement Debridement -Clinical Debridement Epidermis / Epidermis / Dermis Dermis -Tissue Removed Epidermis Epidermis -Post Debridement (cm) - Length 13.3 14.0 -Post Debridement (cm) - Width 28.0 25.0 -Post Debridement (cm) - Depth 0.1 0.1 -Total Square (Post) (cm) 372.40 350.00 -Area of Debridement (cm) - Length 13.3 14.0 -Area of Debridement (cm) - Width 28.0 25.0 -Total Square (Area) (cm) 372.40 350.00 -Tunneling No No -Undermining/Tunneling No No -Circular Undermining No No -Wound/Ulcer Outcome Not Healed Not Healed -Ulcer Cleansing Rinsed/ Rinsed/ Irrigated with Irrigated with Saline Saline -Foul Odor after Cleansing No No -Bioengineered Tissue No No -Bleeding Controlled with Pressure Pressure -Treatment Response Procedure Procedure Tolerated Well Tolerated Well -Offloading No No -Debridement - Open, 1st 20sq cm Yes Yes -Debridement, Open, ea addt'l 20sq cm 18 18 or part thereof 15.RLE medial -Time 10:12 10:08 -Correct Patient Yes Yes -Correct Side, Site, Position Yes Yes -Correct Procedure Yes Yes -Procedure Performed Yes Yes -Type of Procedure Debridement Debridement -Clinical Debridement Epidermis / Epidermis / Dermis Dermis -Tissue Removed Epidermis Epidermis -Post Debridement (cm) - Length 2.0 3.0 -Post Debridement (cm) - Width 3.6 3.8 -Post Debridement (cm) - Depth 0.1 0.1 -Total Square (Post) (cm) 7.20 11.40 -Area of Debridement (cm) - Length 2.0 3.0 -Area of Debridement (cm) - Width 3.6 3.8 -Total Square (Area) (cm) 7.20 11.40 -Tunneling No No -Undermining/Tunneling No No -Circular Undermining No No -Wound/Ulcer Outcome Not Healed Not Healed -Ulcer Cleansing Rinsed/ Rinsed/ Irrigated with Irrigated with Saline Saline -Foul Odor after Cleansing No No -Bioengineered Tissue No No -Bleeding Controlled with Pressure -Treatment Response Procedure Procedure Tolerated Well Tolerated Well -Offloading No No -Debridement - Open, 1st 20sq cm No No -Debridement - Subq, 1st 20sq cm No Pain Scale: 0-10 Numeric Is Patient Pain Free? Yes Yes WC - Nurse 3 - General Ulcer D/C NN Start: 11/12/22 09:34 Freq: Status: Active Protocol: Activity Type Activity Date Activity User E-sign Co-sign Detail Recorded Client Recorded Date Recorded By Document 11/12/22 10:40 RB [id number] 11/12/22 10:42 RB Edit Result 11/12/22 10:40 RB (1) [id number] 11/12/22 12:12 DL Document 11/19/22 11:03 RB [id number] 11/19/22 11:05 RB (1) Notes: => Pt taken over to hospital for VDU to r/o DVT. Returned to have leg wrapped after test. 11/12/22 11/19/22 10:40 11:03 Wound Care Center Nurse 3 #17 right lateral LE cluster -Ulcer Cleansing Rinsed/ Irrigated with Saline -Primary Dressing Applied Fibracol Plus 4x4 -Other Dressing abd -Fibracol Plus 4x4 1 16. LLE cluster -Ulcer Cleansing Rinsed/ Rinsed/ Irrigated with Irrigated with Saline Saline -Primary Dressing Applied Fibracol Plus Fibracol Plus 4x4 4x4,Optilok 8x12 -Other Dressing abd -Fibracol Plus 4x4 1 1 -Optilok 8x12 1 15.RLE medial -Ulcer Cleansing Rinsed/ Rinsed/ Irrigated with Irrigated with Saline Saline -Primary Dressing Applied Fibracol Plus Fibracol Plus 4x4 4x4 -Other Dressing abd abd -Fibracol Plus 4x4 1 1 bilateral -Multi-Layered Wrap Application Multi-Layer Multi-Layer Comp - Bilat ($ Comp - Bilat ($ ) ) Treatment Response Procedure Procedure Tolerated Well Tolerated Well Pain Scale: 0-10 Numeric Is Patient Pain Free? No No WC - Visit Discharge Discharge Condition Stable Stable Ambulatory Status Ambulatory, Ambulatory, Walker Walker Transportation Private Auto Private Auto Medication Reconcilliation completed & No No provided to patient/care provider Clinical Summary of Care Provided Yes Yes Notes: Pt taken over to hospital for VDU to r/o DVT . Returned to have leg wrapped after test. Additional Wound Wound debrided: right medial LE Laterality: Right Type of Debridement: Selective debridement Anesthesia Used: 4% Lidocaine Solution Depth: Down to and including healthy tissue and in the subcutaneous layer Percentage of wound debrided: 100 Instrument Used: - (gauze) Tissue Removed: Yellow slough, devitalized tissue Severity: Fat Layer Exposed Amount of bleeding with debridement: Mild Bleeding Controlled with: Compression and gauze Patient tolerated procedure: Patient tolerated procedure well Assessment/Plan Assessment/Plan (1) Ulcer of right lower extremity with fat layer exposed: CODE(S): L97.912 - Non-pressure chronic ulcer of unspecified part of rightlower leg with fat layer exposed (2) Ulcer of left lower extremity with fat layer exposed: CODE(S): L97.922 - Non-pressure chronic ulcer of unspecified part of left lower leg with fat layer exposed (3) Venous insufficiency: CODE(S): I87.2 - Venous insufficiency (chronic) (peripheral) (4) Edema: CODE(S): R60.9 - Edema, unspecified QUALIFIERS: Edema type: unspecified Qualified Code(s): R60.9 - Edema, unspecified (5) History of CVA (cerebrovascular accident): CODE(S): Z86.73 - Personal history of transient ischemic attack (TIA), andcerebral infarction without residual deficits (6) Venous ulcer of left lower extremity with varicose veins: CODE(S): I83.029 - Varicose veins of left lower extremity with ulcer of unspecified site (7) Venous ulcer of both lower extremities with varicose veins: CODE(S): I83.019 - Varicose veins of right lower extremity with ulcer of unspecified site; I83.029 - Varicose veins of left lower extremity with ulcer ofunspecified site (8) Venous ulcers of both lower extremities: CODE(S): I87.2 - Venous insufficiency (chronic) (peripheral) (9) Lymphedema: CODE(S): I89.0 - Lymphedema, not elsewhere classified PLAN: Plan Debridement performed today in clinic as annotated above. At home wound-care instructions: Apply Fibracol to open areas. Then will apply 3M compression wraps to bilateral legs. Keep dressing clean and dry. Will have Home Health change dressings on Tuesday. Off-loading: The patient was instructed to avoid pressure and friction on the affected areas. Reposition every 2 hours at minimum. Avoid prolonged standing and/or dangling of legs. When seated, feet should be elevated at chest level. Frequent ambulation is encouraged. Diet: Patient encouraged to increase protein intake while taking caution to avoid high carbohydrate and/or sugar intake. Labs/cultures/imaging: Culture taken today and venous US ordered to rule out DVTlast week was negative for DVT. Labs ordered. Follow-up: Return in 1 week for wound care follow up. Return sooner or report tothe emergency room should symptoms worsen, or new symptoms arise. Note: [employer] speech recognition hair tinter software was used to create portions of this document. Sound-alike and misspelled words, as well as other hair tinter errors may be contained in the documentation. 11/26/22 1430 <Electronically signed by Patricia Garcia DO> Cosigner Signature (if applicable): CC: ~ Signed [facility] Work Phone: [phone] 579-737002-17-[address] Stewart [facility] November 26, 2022 2:10pm Note Date/Time November 26, 2022 2:10pm [facility] Medical Records Department [address] [place] [address] Emergency Department Summary 11/26/22 MR#: [id number] Acct: [id number] Name: ESTEBAN URBINA Rep #:[id number] : 1955 67 From: Ramos Stewart MD PCP: Dr. Patricia Garcia DO Status:REG ER Location: ED HPI History of Present Illness Chief Complaint: Edema Detail of Chief Complaint: Bilateral lymphedema with venous stasis dermatitis and skin breakdown Informant: patient and other (Patient was sent from wound center.) Occured/Mechanism Comment: Chronic venous stasis dermatitis with skin breakdown and seepage of serous fluid. Onset/Context/Timing Context: Sudden Onset Timing: Continuous Location: Left lower extremity, leg Maximum Severity: Mild Worsened by: Skin breakdown Relieved by: Nothing Associated Symptoms Associated Symptoms: Negative for Parasthesia, Weakness or Loss of Funtion Narrative Narrative: Patient is a 67-year-old male with history of venous stasis dermatitis and skin ulceration without evidence of infection. Patient did have a culture of the skin 2 weeks ago which grew multiple organism. Patient denies fever, chills night sweats. Patient denies shortness of breath or chest pain. Patient had anoutpatient venous duplex study that was negative. Patient was sent from the wound center for treatment. Patient denies GI, or neurologic symptoms. Tetanus Immunization: 5-10 years [facility] Medical History Alcohol use History of edema History of pain when walking History of stress test Hypertension Lupus Non-smoker Pulmonary embolism Seizures Stroke/cerebrovascular accident Uses wheelchair Wears glasses Home Medications lisinopril 5 mg tablet 10 mg PO BID blood pressure 08/27/15 [History Last Taken 02/14/19 07:30] omega-3 fatty acids 500 mg capsule (Fish Oil) 1,000 mg PO DAILY supplement 08/27/15 [History Last Taken 07/01/22] Clonidine Hcl 1 tab PO BID Blood pressure\ 02/07/19 [History Last Taken 02/14/19 07:30] baclofen 10 mg tablet 10 mg PO .QID PRN Muscle Spasm 04/14/22 [History Last Taken Unknown] methadone 10 mg tablet 10 mg PO Q12H 04/14/22 [History Last Taken Unknown] niacin 50 mg tablet 25 mg PO DAILY 04/14/22 [History Last Taken Unknown] phenytoin sodium extended 100 mg capsule (Dilantin Extended) 200 mg PO DAILY 04/14/22 [History Last Taken 07/07/22 06:15] pregabalin 75 mg capsule (Lyrica) 75 mg PO TID 04/14/22 [History Last Taken Unknown] turmeric root extract 500 mg capsule 100 mg PO BID supplement 04/14/22 [History Last Taken 07/02/22] warfarin 4 mg tablet (Jantoven) 5 mg PO MOWEFR Blood thinner 04/14/22 [History Last Taken 07/01/22] warfarin 5 mg tablet (Jantoven) 4 mg PO SUTUTHSA blood thinner 04/14/22 [History Last Taken 07/01/22] coenzyme Q10 100 mg capsule (CoQ-10) 100 mg PO QODAY 07/02/22 [History Last Taken Unknown] ergocalciferol (vitamin D2) 1,250 mcg (50,000 unit) capsule (Vitamin D2) 1,250 mcg PO WE 07/02/22 [History Last Taken Unknown] phenytoin sodium extended 100 mg capsule (Dilantin Extended) 100 mg PO QHS 07/02/22 [History Last Taken Unknown] furosemide 20 mg tablet (Lasix) 20 mg PO LUNCH 07/05/22 [History Last Taken Unknown] furosemide 40 mg tablet (Lasix) 40 mg PO DAILY 07/05/22 [History Last Taken Unknown] Allergy/AdvReac Type Severity Reaction Status Date / Time duloxetine [From Cymbalta] Allergy Rash Verified 11/26/22 12:05 sulfamethoxazole Allergy Rash Verified 11/26/22 12:05 [From Bactrim] trimethoprim [From Bactrim] Allergy Rash Verified 11/26/22 12:05 ciprofloxacin [From Cipro] AdvReac PAIN IN Verified 11/26/22 12:05 FEET ciprofloxacin HCl AdvReac Rash Verified 11/26/22 12:05 [From Cipro] citalopram AdvReac SUICIDAL Verified 11/26/22 12:05 THOUGHTS gabapentin [From Neurontin] AdvReac EFFECTED Verified 11/26/22 12:05 VISION AND HEARING hydrochlorothiazide AdvReac DIZZINESS Verified 11/26/22 12:05 levetiracetam [From Keppra] AdvReac Other Verified 11/26/22 12:05 [id number]-BWZ-HpO Reductase AdvReac Other Verified 11/26/22 12:05 Inhibitor tramadol AdvReac Other Verified 11/26/22 12:05 Family History Father Colon cancer Hypertension Gastric ulcer Mother Heart disease Brother Diabetes Surgical History History of embolic filter insertion Hx of colonoscopy Social History (Updated 11/26/22 @ 14:[address] Ramos Stewart MD) household members: none Smoking Status: Never smoker alcohol intake: never substance use type: does not use ROS ROS ED Constitutional Constitutional ED: Denies chills, fever(s), subjective, sweats or weight loss Eyes Eyes: Denies blurry vision, change in vision or diplopia ENT ENT ED: Denies ear pain, rhinorrhea or sore throat Cardiovascular Cardiovascular: Denies chest pain, orthopnea, palpitations, paroxysmal nocturnaldyspnea or racing heartbeat Respiratory/Chest Respiratory/Chest: Denies cough, dyspnea, dyspnea on exertion, orthopnea or paroxysmal nocturnal dyspnea Gastrointestinal Gastrointestinal: Denies abdominal pain, nausea or vomiting Genitourinary Genitourinary ED: Denies dysuria, hematuria or urinary frequency Musculoskeletal Musculoskeletal: Denies arthralgias, back pain, myalgias or neck pain Integumentary Reports rash; Denies abscess or Abrasions Neurologic Neurologic: Denies headache(s), paresthesias or weakness Psychiatric Psychiatric: Reports anxiety and depression Hematologic/Lymphatic Hematologic/Lymphatic: Denies easy bleeding or easy bruising EXAM Physical Exam Const Vital Signs: 11/26/22 12:05 11/26/22 12:07 Temperature 97.8 F Temperature Source Temporal Pulse Rate 85 Respiratory Rate 14 Respiratory Effort Normal Blood Pressure 131/84 H Blood Pressure Mean 99 Pulse Ox 100 Oxygen Delivery Method Room Air Positive well nourished, well developed and obese General Appearance ED: well developed and NAD Nutritional Appearance: obese HEENT Reports moist mucous membranes HEENT Narrative: Ears normal. Nares patent. Mucosa moist. Teeth normal. normocephalic and atraumatic Eyes PERRL Eyes Narrative: Extraocular muscles are intact. Sclera is anicteric. Conjunctive are is pink. Neck full ROM and supple Neck Narrative: There is no cervical lymph apathy. Chest Wall inspection of chest normal Resp normal respiratory effort, no retractions and clear to auscultation bilaterally Cardio regular rate, regular rhythm, S1 normal heart sound, S2 normal heart sound and no murmurs GI non-tender, non-distended and no masses Inspection: abdominal distention Palpation: soft Back/Spine Cervical Spine: Negative for cervical spine tenderness Thoracic Spine / Upper Back: Negative for thoracic spinal tenderness Lumbar Spine / Lower Back: Negative for lumbar spinal tenderness Extremity Negative for normal to inspection Extremity Narrative: Venous stasis dermatitis both lower extremities. Patient has breakdown of skin left leg which is weeping serous fluid. The leg appears inflamed. There is no warmth, induration, lymphangitis. There is no appreciable popliteal or inguinallymphadenopathy Neuro oriented x3, CN's II-XII intact bilaterally, moves all extremities and no sensory deficits noted Sensorium / Orientation: alert Motor Exam: strength 5/5 throughout Plantar Reflex: Downgoing: bilateral Psych Psych Narrative: Depressed Skin Skin Narrative: There is breakdown of skin. There is serous drainage. There is no odor to the drainage. There is no color to the drainage. MDM MDM MDM Narrative Medical decision making narrative: Patient was sent to the ER. Blood work was obtained Outside records were reviewed and venous duplex studies was reviewed there is noconcern for infection or DVT Lab Data Attestation: I reviewed the patient's lab results. Lab results narrative: CBC and differential unremarkable. Basic metabolic panel is unremarkable. Since patient's labs are normal there is no evidence infection will discharge [place] for him to be cared for by the wound center. This is a chronic issue that does not require hospitalization Labs: Laboratory Results - last 24 hr 11/26/22 11/26/22 12:40 12:40 WBC 6.7 RBC 4.15 L Hgb 13.2 Hct 40.7 MCV 98.1 H MCH 31.8 MCHC 32.4 RDW Std Deviation 50.2 H RDW Coeff of [place] 14.1 Plt Count 397 MPV 8.8 Immature Gran % (Auto) 0.400 Neut % (Auto) 62.6 Lymph % (Auto) 21.7 Perkins % (Auto) 10.7 H Eos % (Auto) 3.7 Baso % (Auto) 0.9 Absolute Neuts (auto) 4.2 Absolute Lymphs (auto) 1.46 Nucleated RBC % 0 Sodium 139 Potassium 4.0 Chloride 104 Carbon Dioxide 29.0 Anion Gap 6 BUN 17 Creatinine 0.77 Estim Creat Clear Calc 86.31 Est GFR (MDRD) Af Amer 131 Est GFR (MDRD) Non-Af 108 BUN/Creatinine Ratio 22.1 H Glucose 101 Calcium 9.0 Discharge Plan Triage Chief Complaint: Edema ED Provider: Ramos Stewart Dx/Rx/DC Orders Clinical Impression: Chronic venous stasis dermatitis of both lower extremities, Chronic anticoagulation, Hyperlipidemia, Hypertension, Venous stasis ulcer of left lowerextremity, Morbid obesity Prescriptions: No Action phenytoin sodium extended [Dilantin Extended] 100 mg capsule 200 mg PO DAILY niacin 50 mg tablet 25 mg PO DAILY lisinopril 5 MG tablet 10 mg PO BID Label Comments: blood pressure Fish Oil 500 MG capsule 1,000 mg PO DAILY warfarin [Jantoven] 4 mg tablet 5 mg PO MOWEFR warfarin [Jantoven] 5 mg tablet 4 mg PO [facility] turmeric root extract 500 mg capsule 100 mg PO BID Clonidine Hcl 0.1 MG tablet 1 tab PO BID baclofen 10 mg tablet 10 mg PO .QID PRN (Reason: Muscle Spasm) methadone 10 mg tablet 10 mg PO Q12H pregabalin [Lyrica] 75 mg capsule 75 mg PO TID phenytoin sodium extended [Dilantin Extended] 100 mg Capsule 100 mg PO QHS ergocalciferol (vitamin D2) [Vitamin D2] 1,250 mcg (50,000 unit) Capsule 1,250 mcg PO WE coenzyme Q10 [CoQ-10] 100 mg Capsule 100 mg PO QODAY furosemide [Lasix] 40 mg Tablet 40 mg PO DAILY furosemide [Lasix] 20 mg Tablet 20 mg PO LUNCH Primary Care Provider: Patricia Garcia Referrals: Patricia Garcia DO [Primary Care Provider] - 3-5 Days Disposition Disposition: Home, Self Care What to do if you have Problems For any increased pain, shortness of breath, bleeding, nausea or vomiting, chestpain, or any unexpected problems, contact your Primary Care Provider. Call [facility] ([phone]) or report to the closest Emergency Room. Call 911 if necessary. 11/26/22 1410 <Electronically signed by Ramos Stewart MD> Cosigner Signature (if applicable): CC: Dr. Patricia Garcia DO ~ Signed [facility] Work Phone: [phone] History and physical note Author Dr. Garcia [facility] November 12, 2022 2:49pm Note Date/Time November 12, 2022 2 :25pm [facility] [address] [place] [id number] H&P Exam - Wound Care 11/12/22 1403 MR#: [id number] Acct: [id number] Name: ESTEBAN URBINA Rep #:[id number] : 1955 67 From: Patricia Garcia DO PCP: Dr. Patricia Garcia DO Status:REG RCR Location: History of Present Illness Date of Service: 11/12/22 Chief Complaint: venous ulcers of bilateral lower extremities History of Wound: Mauricio is a 67 yo gentleman who is here today for evaluation of ulcers to to his bilateral lower legs. He has been treated multiple times in [facility] at the wound healing center for similar ulcers. The left LE ulcer started after he developed increased swelling and blisters of left leg in October and the right leg started sometime at the end of October He was seen at PCP's office a culture was taken and it was resistant to several antibiotics. He was treated initially with Levaquin but had myalgias and then was treated with doxycycline which he finished 2 days ago. He denies improvementand is having swelling to left his calf and thigh. He has been having swelling to both lower extremities for many years and it has worsened over the last few months. He has not been compliabt with compression. He has had increased pain especially in the left leg. He has clear yellow drainage and redness without odor or warmth. He is anti-coagulated on coumadin. He has been washing with Dial soap and witch ifrah. He had been using Collagen at times and using Calcium Alginate and covering with ABD pads during October. He was treated with UNNA boot therapy on Tuesday using calcium alginate over the ulcers under the UNNA boots. He was referred to the wound center for ongoing treatment. His ulcers have moderate drainage. [facility] Medical History Alcohol use History of edema History of pain when walking History of stress test Hypertension Lupus Non-smoker Pulmonary embolism Seizures Stroke/cerebrovascular accident Uses wheelchair Wears glasses Home Medications lisinopril 5 mg tablet 10 mg PO BID blood pressure 08/27/15 [History Last Taken 02/14/19 07:30] omega-3 fatty acids 500 mg capsule (Fish Oil) 1,000 mg PO DAILY supplement 08/27/15 [History Last Taken 07/01/22] Clonidine Hcl 1 tab PO BID Blood pressure\ 02/07/19 [History Last Taken 02/14/19 07:30] baclofen 10 mg tablet 10 mg PO .QID PRN Muscle Spasm 04/14/22 [History Last Taken Unknown] methadone 10 mg tablet 10 mg PO Q12H 04/14/22 [History Last Taken Unknown] niacin 50 mg tablet 25 mg PO DAILY 04/14/22 [History Last Taken Unknown] phenytoin sodium extended 100 mg capsule (Dilantin Extended) 200 mg PO DAILY 04/14/22 [History Last Taken 07/07/22 06:15] pregabalin 75 mg capsule (Lyrica) 75 mg PO TID 04/14/22 [History Last Taken Unknown] turmeric root extract 500 mg capsule 100 mg PO BID supplement 04/14/22 [History Last Taken 07/02/22] warfarin 4 mg tablet (Jantoven) 5 mg PO MOWEFR Blood thinner 04/14/22 [History Last Taken 07/01/22] warfarin 5 mg tablet (Jantoven) 4 mg PO SUTUTHSA blood thinner 04/14/22 [History Last Taken 07/01/22] coenzyme Q10 100 mg capsule (CoQ-10) 100 mg PO QODAY 07/02/22 [History Last Taken Unknown] ergocalciferol (vitamin D2) 1,250 mcg (50,000 unit) capsule (Vitamin D2) 1,250 mcg PO WE 07/02/22 [History Last Taken Unknown] phenytoin sodium extended 100 mg capsule (Dilantin Extended) 100 mg PO QHS 07/02/22 [History Last Taken Unknown] furosemide 20 mg tablet (Lasix) 20 mg PO LUNCH 07/05/22 [History Last Taken Unknown] furosemide 40 mg tablet (Lasix) 40 mg PO DAILY 07/05/22 [History Last Taken Unknown] Allergy/AdvReac Type Severity Reaction Status Date / Time duloxetine [From Cymbalta] Allergy Rash Verified 07/07/22 07:38 sulfamethoxazole Allergy Rash Verified 07/07/22 07:38 [From Bactrim] trimethoprim [From Bactrim] Allergy Rash Verified 07/07/22 07:38 ciprofloxacin [From Cipro] AdvReac PAIN IN Verified 07/07/22 07:38 FEET ciprofloxacin HCl AdvReac Rash Verified 07/07/22 07:38 [From Cipro] citalopram AdvReac SUICIDAL Verified 07/07/22 07:38 THOUGHTS gabapentin [From Neurontin] AdvReac EFFECTED Verified 07/07/22 07:38 VISION AND HEARING hydrochlorothiazide AdvReac DIZZINESS Verified 07/07/22 07:38 levetiracetam [From Keppra] AdvReac Other Verified 07/07/22 07:38 [id number] Reductase AdvReac Other Verified 07/07/22 07:38 Inhibitor tramadol AdvReac Other Verified 07/07/22 07:38 Family History Father Colon cancer Hypertension Gastric ulcer Mother Heart disease Brother Diabetes Surgical History History of embolic filter insertion Hx of colonoscopy Social History Smoking Status: Never smoker alcohol intake: never substance use type: does not use Vital Signs Vital Signs Vital Signs: 11/12/22 09:34 Temperature 96.5 F L Temperature Source Temporal Pulse Rate 87 Respiratory Rate 18 Blood Pressure 130/71 H Blood Pressure Mean 90 Blood Pressure Source Monitor Blood Pressure Position Sitting Blood Pressure Location Right Arm Physical Exam Const alert, oriented x3 and no apparent distress General Appearance: cooperative and comfortable HEENT normocephalic and head/scalp atraumatic Lymph Lymphatic: lymphedema severe Resp normal respiratory effort Effort and Inspection: able to speak in complete sentences Cardio regular rate and regular rhythm Extremity General Extremity: edema bilateral lower extremity Details: severe Skin Wounds: wounds noted Wound Narrative: as in clinical panel Psych mental status grossly normal, thought process normal, cooperative and affect normal Debridement Note Debridement Note Wound debrided: LLE cluster Laterality: Left Type of Debridement: Selective debridement Anesthesia Used: 4% Lidocaine Solution Depth: Down to and including healthy tissue and in the subcutaneous layer Percentage of wound debrided: 100 Instrument Used: - (gauze) Tissue Removed: Yellow slough, devitalized tissue Severity: Fat Layer Exposed Amount of bleeding with debridement: Mild Bleeding Controlled with: Compression and gauze Patient tolerated procedure: Patient tolerated procedure well Post-Debridement Measurements and Additional Note: Post-Debridement Measurements/Treatment - Nurse 1 - General Ulcer Assessment Start: 11/12/22 09:34 Freq: Status: Active Protocol: ONDINA Activity Type Activity Date Activity User E-sign Co-sign Detail Recorded Client Recorded Date Recorded By Document 11/12/22 09:34 [id number] 11/12/22 09:49 RB 11/12/22 09:34 - Today's Visit Information Type of service Initial Visit Arrival Mode Ambulatory, Walker Transfer Assistance None Patient Identification Verified (Name & Yes ) Patient Requires Transmission-Based No Precautions Vital Signs Temperature (97.8 F-99.1 F) 96.5 F L Temperature Source Temporal Pulse Rate (60-100) 87 Pulse Location Monitor Respiratory Rate (12-18) 18 Respiratory rate source Observation Blood Pressure (90/60-120/80) 130/71 H Blood Pressure Mean 90 Source Monitor Position Sitting Blood Pressure Location Right Arm History Since Last Visit- (Skip if this is Patient's initial visit) Left Footwear Regular Shoe Right Footwear Regular Shoe Pain Scale: 0-10 Numeric Is Patient Pain Free? No bilat lower legs -Description Aching -Intensity 9 -Duration (hours) Acute -Pain Behavior Withdrawal from Touch -Pain Aggravating Factors ADL's,Exercise/ Activity -Alleviating Factors/Interventions Medication -Effectiveness of Alleviating Factor/ Moderately Intervention effective - Nurse 1 - General Ulcer Measurement Start: 11/12/22 09:34 Freq: Status: Active Protocol: Activity Type Activity Date Activity User E-sign Co-sign Detail Recorded Client Recorded Date Recorded By Document 11/12/22 09:34 RB [id number] 11/12/22 09:49 RB 11/12/22 09:34 Wound Center Nurse 1 16. LLE cluster -Combined with other wound No -Current Size (cm) - Length 13.3 -Current Size (cm) - Width 28 -Current Size (cm) - Depth 0.1 -Total Square Cm 372.4 -Photo Taken Yes -Tunneling No -Undermining/Tunneling No -Circular Undermining No -Exudate Type Serosanguineous -Wound Margin Distinct, Outline Attached -Granulation Amt Medium (34-66%) -Granulation Quality Lingle -Slough/Fibrin Yes -Necrosis Amt Medium (34-66%) -Necrotic Tissue Type Adherent Slough -Structure Exposed N/A -Texture (Marie-wound Skin Appearance) Assessed, Localized Edema -Moisture (Marie-wound Skin Appearance) Assessed -Color (Marie-wound Skin Appearance) Assessed, Erythema, Hemosiderin Staining -Temperature (Marie-wound Skin No Abnormality Appearance) (Pt Warm) -Tenderness on Palpation (Marie-wound No Skin Appearance) -Ulcer Cleansing Wound Cleanser -Foul Odor after Cleansing No -Anesthetic Used 4% Lidocaine Solution,5% Lidocaine Gel 15.RLE medial -Combined with other wound No -Current Size (cm) - Length 2 -Current Size (cm) - Width 3.6 -Current Size (cm) - Depth 0.1 -Total Square Cm 7.2 -Photo Taken Yes -Tunneling No -Undermining/Tunneling No -Circular Undermining No -Exudate Amt Medium -Exudate Type Serosanguineous -Wound Margin Distinct, Outline Attached -Granulation Amt Medium (34-66%) -Granulation Quality Lingle -Slough/Fibrin Yes -Necrosis Amt Medium (34-66%) -Necrotic Tissue Type Adherent Slough -Structure Exposed N/A -Texture (Marie-wound Skin Appearance) Assessed, Localized Edema -Moisture (Marie-wound Skin Appearance) Assessed -Color (Marie-wound Skin Appearance) Assessed -Temperature (Marie-wound Skin No Abnormality Appearance) (Pt Warm) -Tenderness on Palpation (Marie-wound No Skin Appearance) -Ulcer Cleansing Wound Cleanser -Foul Odor after Cleansing No -Anesthetic Used 4% Lidocaine Solution,5% Lidocaine Gel Lower Limb Edema Present Yes Right Calf (cm) 51 Right Ankle (cm) 31 Left Calf (cm) 52.5 Left Ankle (cm) 31 WC - Nurse 2 - General Ulcer CM Notes Start: 11/12/22 09:34 Freq: Status: Active Protocol: Activity Type Activity Date Activity User E-sign Co-sign Detail Recorded Client Recorded Date Recorded By Document 11/12/22 10:12 MW [id number] 11/12/22 10:36 MW Edit Result 11/12/22 10:12 MW (1) [id number] 11/12/22 10:37 MW (1) 15.RLE medial - Debridement - Open, 1st 20sq cm Yes => No 11/12/22 10:12 Wound Center Nurse 2 16. LLE cluster -Time 10:12 -Correct Patient Yes -Correct Side, Site, Position Yes -Correct Procedure Yes -Procedure Performed Yes -Type of Procedure Debridement -Clinical Debridement Epidermis / Dermis -Tissue Removed Epidermis -Post Debridement (cm) - Length 13.3 -Post Debridement (cm) - Width 28.0 -Post Debridement (cm) - Depth 0.1 -Total Square (Post) (cm) 372.40 -Area of Debridement (cm) - Length 13.3 -Area of Debridement (cm) - Width 28.0 -Total Square (Area) (cm) 372.40 -Tunneling No -Undermining/Tunneling No -Circular Undermining No -Wound/Ulcer Outcome Not Healed -Ulcer Cleansing Rinsed/ Irrigated with Saline -Foul Odor after Cleansing No -Bioengineered Tissue No -Bleeding Controlled with Pressure -Treatment Response Procedure Tolerated Well -Offloading No -Debridement - Open, 1st 20sq cm Yes -Debridement, Open, ea addt'l 20sq cm 18 or part thereof 15.RLE medial -Time 10:12 -Correct Patient Yes -Correct Side, Site, Position Yes -Correct Procedure Yes -Procedure Performed Yes -Type of Procedure Debridement -Clinical Debridement Epidermis / Dermis -Tissue Removed Epidermis -Post Debridement (cm) - Length 2.0 -Post Debridement (cm) - Width 3.6 -Post Debridement (cm) - Depth 0.1 -Total Square (Post) (cm) 7.20 -Area of Debridement (cm) - Length 2.0 -Area of Debridement (cm) - Width 3.6 -Total Square (Area) (cm) 7.20 -Tunneling No -Undermining/Tunneling No -Circular Undermining No -Wound/Ulcer Outcome Not Healed -Ulcer Cleansing Rinsed/ Irrigated with Saline -Foul Odor after Cleansing No -Bioengineered Tissue No -Treatment Response Procedure Tolerated Well -Offloading No -Debridement - Open, 1st 20sq cm No -Debridement - Subq, 1st 20sq cm No Pain Scale: 0-10 Numeric Is Patient Pain Free? Yes WC - Nurse 3 - General Ulcer D/C NN Start: 11/12/22 09:34 Freq: Status: Active Protocol: Activity Type Activity Date Activity User E-sign Co-sign Detail Recorded Client Recorded Date Recorded By Document 11/12/22 10:40 RB [id number] 11/12/22 10:42 RB Edit Result 11/12/22 10:40 RB (1) [id number] 11/12/22 12:12 DL (1) Notes: => Pt taken over to hospital for VDU to r/o DVT. Returned to have leg wrapped after test. 11/12/22 10:40 Wound Care Center Nurse 3 16. LLE cluster -Ulcer Cleansing Rinsed/ Irrigated with Saline -Primary Dressing Applied Fibracol Plus 4x4 -Other Dressing abd -Fibracol Plus 4x4 1 15.RLE medial -Ulcer Cleansing Rinsed/ Irrigated with Saline -Primary Dressing Applied Fibracol Plus 4x4 -Other Dressing abd -Fibracol Plus 4x4 1 bilateral -Multi-Layered Wrap Application Multi-Layer Comp - Bilat ($ ) Treatment Response Procedure Tolerated Well Pain Scale: 0-10 Numeric Is Patient Pain Free? No WC - Visit Discharge Discharge Condition Stable Ambulatory Status Ambulatory, Walker Transportation Private Auto Medication Reconcilliation completed & No provided to patient/care provider Clinical Summary of Care Provided Yes Notes: Pt taken over to hospital for VDU to r/o DVT . Returned to have leg wrapped after test. Additional Wound Wound debrided: right medial LE Laterality: Right Type of Debridement: Selective debridement Anesthesia Used: 4% Lidocaine Solution Depth: Down to and including healthy tissue and in the subcutaneous layer Percentage of wound debrided: 100 Instrument Used: - (gauze) Tissue Removed: Yellow slough, devitalized tissue Severity: Fat Layer Exposed Amount of bleeding with debridement: Mild Bleeding Controlled with: Compression and gauze Patient tolerated procedure: Patient tolerated procedure well Radiology Impression Venous Doppler Study 11/12/22 10:56 Interpretation Summary There is no evidence of left lower extremity deep vein thrombosis. Left great saphenous vein appears patent and compressible segmentally. Left groin 4.35 x 1.10 cm enlarged lymph node. Normal flow patterns right common femoral vein This examination was noted to be technically difficult Ordering Physician: Patricia Garcia Referring Physician: Patricia Garcia Performed By: Gary Soto RVT Assessment/Plan Assessment/Plan (1) Ulcer of right lower extremity with fat layer exposed: CODE(S): L97.912 - Non-pressure chronic ulcer of unspecified part of rightlower leg with fat layer exposed (2) Ulcer of left lower extremity with fat layer exposed: CODE(S): L97.922 - Non-pressure chronic ulcer of unspecified part of left lower leg with fat layer exposed (3) Venous insufficiency: CODE(S): I87.2 - Venous insufficiency (chronic) (peripheral) (4) Edema: CODE(S): R60.9 - Edema, unspecified QUALIFIERS: Edema type: unspecified Qualified Code(s): R60.9 - Edema, unspecified (5) History of CVA (cerebrovascular accident): CODE(S): Z86.73 - Personal history of transient ischemic attack (TIA), andcerebral infarction without residual deficits (6) Venous ulcer of left lower extremity with varicose veins: CODE(S): I83.029 - Varicose veins of left lower extremity with ulcer of unspecified site (7) Venous ulcer of both lower extremities with varicose veins: CODE(S): I83.019 - Varicose veins of right lower extremity with ulcer of unspecified site; I83.029 - Varicose veins of left lower extremity with ulcer ofunspecified site (8) Venous ulcers of both lower extremities: CODE(S): I87.2 - Venous insufficiency (chronic) (peripheral) (9) Lymphedema: CODE(S): I89.0 - Lymphedema, not elsewhere classified PLAN: Plan Debridement performed today in clinic as annotated above. At home wound-care instructions: Apply Fibracol to open areas. Then will apply 3M compression wraps to bilateral legs. Keep dressing clean and dry. Will have Home Health change dressings on Tuesday. Off-loading: The patient was instructed to avoid pressure and friction on the affected areas. Reposition every 2 hours at minimum. Avoid prolonged standing and/or dangling of legs. When seated, feet should be elevated at chest level. Frequent ambulation is encouraged. Diet: Patient encouraged to increase protein intake while taking caution to avoid high carbohydrate and/or sugar intake. Labs/cultures/imaging: Culture taken today and venous US ordered to rule out DVT. Labs ordered. Follow-up: Return in 1 week for wound care follow up. Return sooner or report tothe emergency room should symptoms worsen, or new symptoms arise. Note: [employer] speech recognition hair tinter software was used to create portions of this document. Sound-alike and misspelled words, as well as other hair tinter errors may be contained in the documentation. 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 Chronic pain disorder chroni c History of CVA (cerebrovascular accident) chronic History of DVT (deep vein thrombosis) chronic History of pulmonary embolism chronic Hypertension chronic Lymphedema chronic Seizure disorder chronic 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 Ulcer of left lower extremity with fat layer exposed resolved [facility] Work Phone: Evaluation note* Diagnosis Onset Date Resolution Status Ulcer of right lower extremity with fat layer exposed acute 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 Chronic pain disorder chroni c History of CVA (cerebrovascular accident) chronic History of DVT (deep vein thrombosis) chronic History of pulmonary embolism chronic Hypertension chronic Lymphedema chronic Seizure disorder chronic 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 Ulcer of left lower extremity with fat layer exposed resolved Ulcer of right lower extremity with fat layer exposed acute Chronic L sided weakness chr onic Chronic pain disorder chroni c Edema chronic History of CVA (cerebrovascular accident) chronic Hypertension chronic Lymphedema chronic Seizure disorder chronic Ulcer of left lower extremity with fat layer exposed resolved [facility] Work Phone: Evaluation note* Diagnosis Onset Date Resolution Status Ulcer of right lower extremity with fat layer exposed acute 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 Chronic pain disorder chroni c History of CVA (cerebrovascular accident) chronic History of DVT (deep vein thrombosis) chronic History of pulmonary embolism chronic Hypertension chronic Lymphedema chronic Seizure disorder chronic 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 Ulcer of left lower extremity with fat layer exposed resolved Ulcer of right lower extremity with fat layer exposed acute Chronic L sided weakness chr onic Chronic pain disorder chroni c Edema chronic History of CVA (cerebrovascular accident) chronic Hypertension chronic Lymphedema chronic Seizure disorder chronic Ulcer of left lower extremity with fat layer exposed resolved Ulcer of right lower extremity with fat layer exposed acute Chronic L sided weakness chr onic Chronic pain disorder chroni c Edema chronic History of CVA (cerebrovascular accident) chronic History of DVT (deep vein thrombosis) chronic History of pulmonary embolism chronic Hypertension chronic Lymphedema chronic Venous insufficiency chronic 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 Venous ulcers of both lower extremities chronic Ulcer of left lower extremity with fat layer exposed resolved [facility] Work Phone: Evaluation note* Diagnosis Onset Date Resolution Status Ulcer of right lower extremity with fat layer exposed acute 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 Chronic pain disorder chroni c History of CVA (cerebrovascular accident) chronic History of DVT (deep vein thrombosis) chronic History of pulmonary embolism chronic Hypertension chronic Lymphedema chronic Seizure disorder chronic 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 Ulcer of left lower extremity with fat layer exposed resolved Ulcer of right lower extremity with fat layer exposed acute Chronic L sided weakness chr onic Chronic pain disorder chroni c Edema chronic History of CVA (cerebrovascular accident) chronic Hypertension chronic Lymphedema chronic Seizure disorder chronic Ulcer of left lower extremity with fat layer exposed resolved Ulcer of right lower extremity with fat layer exposed acute Chronic L sided weakness chr onic Chronic pain disorder chroni c Edema chronic History of CVA (cerebrovascular accident) chronic History of DVT (deep vein thrombosis) chronic History of pulmonary embolism chronic Hypertension chronic Lymphedema chronic Venous insufficiency chronic 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 Venous ulcers of both lower extremities chronic Ulcer of left lower extremity with fat layer exposed resolved Ulcer of right lower extremity with fat layer exposed acute Edema chronic History of CVA (cerebrovascular accident) chronic Lymphedema chronic Venous insufficiency chronic 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 Venous ulcers of both lower extremities chronic Ulcer of left lower extremity with fat layer exposed resolved [facility] Work Phone: Evaluation note* Diagnosis Onset Date Resolution Status Ulcer of right lower extremity with fat layer exposed acute Chronic L sided weakness chr onic Chronic pain disorder chroni c Edema chronic History of CVA (cerebrovascular accident) chronic Hypertension chronic Lymphedema chronic Seizure disorder chronic Ulcer of left lower extremity with fat layer exposed resolved Ulcer of right lower extremity with fat layer exposed acute Chronic L sided weakness chr onic Chronic pain disorder chroni c Edema chronic History of CVA (cerebrovascular accident) chronic History of DVT (deep vein thrombosis) chronic History of pulmonary embolism chronic Hypertension chronic Lymphedema chronic Venous insufficiency chronic 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 Venous ulcers of both lower extremities chronic Ulcer of left lower extremity with fat layer exposed resolved Ulcer of right lower extremity with fat layer exposed acute Edema chronic History of CVA (cerebrovascular accident) chronic Lymphedema chronic Venous insufficiency chronic 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 Venous ulcers of both lower extremities chronic Ulcer of left lower extremity with fat layer exposed resolved Chronic anticoagulation acut e FH: colon cancer in first de gree relative <60 years old acute Hx of colonic polyp acute Ulcer of right lower extremity with fat layer exposed acute Edema chronic History of CVA (cerebrovascular accident) chronic Lymphedema chronic Venous insufficiency chronic 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 Venous ulcers of both lower extremities chronic Ulcer of left lower extremity with fat layer exposed resolved [facility] Work Phone: Evaluation note* Diagnosis Onset Date Resolution Status Ulcer of right lower extremity with fat layer exposed acute Chronic L sided weakness chr onic Chronic pain disorder chroni c Edema chronic History of CVA (cerebrovascular accident) chronic Hypertension chronic Lymphedema chronic Seizure disorder chronic Ulcer of left lower extremity with fat layer exposed resolved Ulcer of right lower extremity with fat layer exposed acute Chronic L sided weakness chr onic Chronic pain disorder chroni c Edema chronic History of CVA (cerebrovascular accident) chronic History of DVT (deep vein thrombosis) chronic History of pulmonary embolism chronic Hypertension chronic Lymphedema chronic Venous insufficiency chronic 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 Venous ulcers of both lower extremities chronic Ulcer of left lower extremity with fat layer exposed resolved Ulcer of right lower extremity with fat layer exposed acute Edema chronic History of CVA (cerebrovascular accident) chronic Lymphedema chronic Venous insufficiency chronic 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 Venous ulcers of both lower extremities chronic Ulcer of left lower extremity with fat layer exposed resolved Chronic anticoagulation acut e FH: colon cancer in first de gree relative <60 years old acute Hx of colonic polyp acute Ulcer of right lower extremity with fat layer exposed acute Edema chronic History of CVA (cerebrovascular accident) chronic Lymphedema chronic Venous insufficiency chronic 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 Venous ulcers of both lower extremities chronic Ulcer of left lower extremity with fat layer exposed resolved Ulcer of right lower extremity with fat layer exposed acute Edema chronic History of CVA (cerebrovascular accident) chronic Lymphedema chronic Venous insufficiency chronic 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 Venous ulcers of both lower extremities chronic Ulcer of left lower extremity with fat layer exposed resolved [facility] Work Phone: Evaluation note* Diagnosis Onset Date Resolution Status Ulcer of right lower extremity with fat layer exposed acute Edema chronic History of CVA (cerebrovascular accident) chronic Lymphedema chronic Venous insufficiency chronic 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 Venous ulcers of both lower extremities chronic Ulcer of left lower extremity with fat layer exposed resolved Chronic anticoagulation acut e FH: colon cancer in first de gree relative <60 years old acute Hx of colonic polyp acute Ulcer of right lower extremity with fat layer exposed acute Edema chronic History of CVA (cerebrovascular accident) chronic Lymphedema chronic Venous insufficiency chronic 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 Venous ulcers of both lower extremities chronic Ulcer of left lower extremity with fat layer exposed resolved Ulcer of right lower extremity with fat layer exposed acute Edema chronic History of CVA (cerebrovascular accident) chronic Lymphedema chronic Venous insufficiency chronic 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 Venous ulcers of both lower extremities chronic Ulcer of left lower extremity with fat layer exposed resolved [facility] Work Phone: Evaluation note* Diagnosis Onset Date Resolution Status Ulcer of right lower extremity with fat layer exposed acute Edema chronic History of CVA (cerebrovascular accident) chronic Lymphedema chronic Venous insufficiency chronic 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 Venous ulcers of both lower extremities chronic Ulcer of left lower extremity with fat layer exposed resolved Chronic anticoagulation acut e FH: colon cancer in first de gree relative <60 years old acute Hx of colonic polyp acute Ulcer of right lower extremity with fat layer exposed acute Edema chronic History of CVA (cerebrovascular accident) chronic Lymphedema chronic Venous insufficiency chronic 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 Venous ulcers of both lower extremities chronic Ulcer of left lower extremity with fat layer exposed resolved Ulcer of right lower extremity with fat layer exposed acute Edema chronic History of CVA (cerebrovascular accident) chronic Lymphedema chronic Venous insufficiency chronic 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 Venous ulcers of both lower extremities chronic Ulcer of left lower extremity with fat layer exposed resolved Chronic anticoagulation acut e FH: colon cancer in first de gree relative <60 years old acute Hx of colonic polyp acute [facility] Work Phone: Evaluation note* Diagnosis Onset Date Resolution Status Ulcer of right lower extremity with fat layer exposed acute Edema chronic History of CVA (cerebrovascular accident) chronic Lymphedema chronic Venous insufficiency chronic 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 Venous ulcers of both lower extremities chronic Ulcer of left lower extremity with fat layer exposed resolved Chronic anticoagulation acut e FH: colon cancer in first de gree relative <60 years old acute Hx of colonic polyp acute [facility] Work Phone: Evaluation note* Diagnosis Onset Date Resolution Status Chronic anticoagulation acut e FH: colon cancer in first degree relative <60 years ol d acute Hx of colonic polyp acute [facility] Work Phone: Evaluation note* Diagnosis Onset Date Resolution Status Ulcer of right lower extremity with fat layer exposed acute Edema chronic History of CVA (cerebrovascular accident) chronic Lymphedema chronic Venous insufficiency chronic 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 Venous ulcers of both lower extremities chronic Ulcer of left lower extremity with fat layer exposed resolved [facility] Work Phone: Evaluation note* Diagnosis Onset Date Resolution Status Ulcer of right lower extremity with fat layer exposed acute Edema chronic History of CVA (cerebrovascular accident) chronic Lymphedema chronic Venous insufficiency chronic 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 Venous ulcers of both lower extremities chronic Ulcer of left lower extremity with fat layer exposed resolved Abdominal contusion acute Cellulitis and abscess of leg acute Contusion of right shoulder acute Fall acute Laceration of forehead acute Leg wound, left acute [facility] Work Phone: Evaluation note* Diagnosis Onset Date Resolution Status Ulcer of right lower extremity with fat layer exposed acute Edema chronic History of CVA (cerebrovascular accident) chronic Lymphedema chronic Venous insufficiency chronic 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 Venous ulcers of both lower extremities chronic Ulcer of left lower extremity with fat layer exposed resolved Abdominal contusion acute Cellulitis and abscess of left leg acute Cellulitis and abscess of leg acute Contusion of right shoulder acute Fall acute Laceration of forehead acute Leg wound, left acute Severe protein-calorie malnutrition acute Chronic pain chronic Lymphedema chronic 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-pressure chronic ulcer o f right calf with fat layer exposed chronic Venous insufficiency (chronic) (peripheral) chronic [facility] Work Phone: Evaluation note* Diagnosis Onset Date Resolution Status Ulcer of right lower extremity with fat layer exposed acute Edema chronic History of CVA (cerebrovascular accident) chronic Lymphedema chronic Venous insufficiency chronic 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 Venous ulcers of both lower extremities chronic Ulcer of left lower extremity with fat layer exposed resolved Severe protein-calorie malnutrition acute Chronic pain chronic Lymphedema chronic Venous insufficiency (chronic) (peripheral) chronic Cellulitis and abscess of left leg resolved Ulcer of right lower extremity with fat layer exposed acute Edema chronic History of CVA (cerebrovascular accident) chronic Lymphedema chronic Venous insufficiency chronic 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 Venous ulcers of both lower extremities chronic Ulcer of left lower extremity with fat layer exposed resolved [facility] Work Phone: Evaluation note* Diagnosis Onset Date Resolution Status Ulcer of right lower extremity with fat layer exposed acute Edema chronic History of CVA (cerebrovascular accident) chronic Lymphedema chronic Venous insufficiency chronic 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 Venous ulcers of both lower extremities chronic Ulcer of left lower extremity with fat layer exposed resolved Severe protein-calorie malnutrition acute Chronic pain chronic Lymphedema chronic Venous insufficiency (chronic) (peripheral) chronic Cellulitis and abscess of left leg resolved Ulcer of right lower extremity with fat layer exposed acute Edema chronic History of CVA (cerebrovascular accident) chronic Lymphedema chronic Venous insufficiency chronic 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 Venous ulcers of both lower extremities chronic Ulcer of left lower extremity with fat layer exposed resolved Ulcer of right lower extremity with fat layer exposed acute Edema chronic History of CVA (cerebrovascular accident) chronic Lymphedema chronic Venous insufficiency chronic 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 Venous ulcers of both lower extremities chronic Ulcer of left lower extremity with fat layer exposed resolved [facility] Work Phone: Evaluation note* Diagnosis Onset Date Resolution Status Ulcer of right lower extremity with fat layer exposed acute Edema chronic History of CVA (cerebrovascular accident) chronic Lymphedema chronic Venous insufficiency chronic 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 Venous ulcers of both lower extremities chronic Ulcer of left lower extremity with fat layer exposed resolved Severe protein-calorie malnutrition acute Chronic pain chronic Lymphedema chronic Venous insufficiency (chronic) (peripheral) chronic Cellulitis and abscess of left leg resolved Ulcer of right lower extremity with fat layer exposed acute Edema chronic History of CVA (cerebrovascular accident) chronic Lymphedema chronic Venous insufficiency chronic 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 Venous ulcers of both lower extremities chronic Ulcer of left lower extremity with fat layer exposed resolved Ulcer of right lower extremity with fat layer exposed acute Edema chronic History of CVA (cerebrovascular accident) chronic Lymphedema chronic Venous insufficiency chronic 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 Venous ulcers of both lower extremities chronic Ulcer of left lower extremity with fat layer exposed resolved Ulcer of right lower extremity with fat layer exposed acute Edema chronic History of CVA (cerebrovascular accident) chronic Lymphedema chronic Venous insufficiency chronic 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 Venous ulcers of both lower extremities chronic Ulcer of left lower extremity with fat layer exposed resolved [facility] Work Phone: Evaluation note* Diagnosis Onset Date Resolution Status Ulcer of right lower extremity with fat layer exposed acute Edema chronic History of CVA (cerebrovascular accident) chronic Lymphedema chronic Venous insufficiency chronic 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 Venous ulcers of both lower extremities chronic Ulcer of left lower extremity with fat layer exposed resolved Ulcer of right lower extremity with fat layer exposed acute Edema chronic History of CVA (cerebrovascular accident) chronic Lymphedema chronic Venous insufficiency chronic 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 Venous ulcers of both lower extremities chronic Ulcer of left lower extremity with fat layer exposed resolved Ulcer of right lower extremity with fat layer exposed acute Edema chronic History of CVA (cerebrovascular accident) chronic Lymphedema chronic Venous insufficiency chronic 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 Venous ulcers of both lower extremities chronic Ulcer of left lower extremity with fat layer exposed resolved Ulcer of right lower extremity with fat layer exposed acute Edema chronic History of CVA (cerebrovascular accident) chronic Lymphedema chronic Venous insufficiency chronic 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 Venous ulcers of both lower extremities chronic Ulcer of left lower extremity with fat layer exposed resolved [facility] Work Phone: Evaluation note* Diagnosis Onset Date Resolution Status Ulcer of right lower extremity with fat layer exposed acute Edema chronic History of CVA (cerebrovascular accident) chronic Lymphedema chronic Venous insufficiency chronic 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 Venous ulcers of both lower extremities chronic Ulcer of left lower extremity with fat layer exposed resolved Ulcer of right lower extremity with fat layer exposed acute Edema chronic History of CVA (cerebrovascular accident) chronic Lymphedema chronic Venous insufficiency chronic 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 Venous ulcers of both lower extremities chronic Ulcer of left lower extremity with fat layer exposed resolved Edema chronic History of CVA (cerebrovascular accident) chronic Lymphedema chronic Venous insufficiency chronic 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 Ulcer of left lower extremity with fat layer exposed resolved Edema chronic History of CVA (cerebrovascular accident) chronic Lymphedema chronic Venous insufficiency chronic 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 Ulcer of left lower extremity with fat layer exposed resolved [facility] Work Phone: Evaluation note* Diagnosis Onset Date Resolution Status Ulcer of right lower extremity with fat layer exposed acute Edema chronic History of CVA (cerebrovascular accident) chronic Lymphedema chronic Venous insufficiency chronic 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 Venous ulcers of both lower extremities chronic Ulcer of left lower extremity with fat layer exposed resolved Edema chronic History of CVA (cerebrovascular accident) chronic Lymphedema chronic Venous insufficiency chronic 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 Ulcer of left lower extremity with fat layer exposed resolved Edema chronic History of CVA (cerebrovascular accident) chronic Lymphedema chronic Venous insufficiency chronic 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 Ulcer of left lower extremity with fat layer exposed resolved Edema chronic History of CVA (cerebrovascular accident) chronic Lymphedema chronic Venous insufficiency chronic 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 Ulcer of left lower extremity with fat layer exposed resolved [facility] Work Phone: Evaluation note* Diagnosis Onset Date Resolution Status Edema chronic History of CVA (cerebrovascular accident) chronic Lymphedema chronic Venous insufficiency chronic 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 Ulcer of left lower extremity with fat layer exposed resolved Edema chronic History of CVA (cerebrovascular accident) chronic Lymphedema chronic Venous insufficiency chronic 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 Ulcer of left lower extremity with fat layer exposed resolved Edema chronic History of CVA (cerebrovascular accident) chronic Lymphedema chronic Venous insufficiency chronic 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 Ulcer of left lower extremity with fat layer exposed resolved Edema chronic History of CVA (cerebrovascular accident) chronic Lymphedema chronic Venous insufficiency chronic 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 Ulcer of left lower extremity with fat layer exposed resolved [facility] Work Phone: Evaluation note* Diagnosis Onset Date Resolution Status Edema chronic History of CVA (cerebrovascular accident) chronic Lymphedema chronic Venous insufficiency chronic 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 Ulcer of left lower extremity with fat layer exposed resolved Edema chronic History of CVA (cerebrovascular accident) chronic Lymphedema chronic Venous insufficiency chronic 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 Ulcer of left lower extremity with fat layer exposed resolved Edema chronic History of CVA (cerebrovascular accident) chronic Lymphedema chronic Venous insufficiency chronic 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 Ulcer of left lower extremity with fat layer exposed resolved Edema chronic History of CVA (cerebrovascular accident) chronic History of DVT (deep vein thrombosis) chronic Hyperlipidemia chronic Hypertension chronic Lymphedema chronic Venous insufficiency chronic Venous insufficiency (chronic) (peripheral) chronic 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 Ulcer of left lower extremity with fat layer exposed resolved [facility] Work Phone: Evaluation note* Diagnosis Onset Date Resolution Status Edema chronic History of CVA (cerebrovascular accident) chronic Lymphedema chronic Venous insufficiency chronic 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 Ulcer of left lower extremity with fat layer exposed resolved Edema chronic History of CVA (cerebrovascular accident) chronic Lymphedema chronic Venous insufficiency chronic 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 Ulcer of left lower extremity with fat layer exposed resolved Edema chronic History of CVA (cerebrovascular accident) chronic History of DVT (deep vein thrombosis) chronic Hyperlipidemia chronic Hypertension chronic Lymphedema chronic Venous insufficiency chronic Venous insufficiency (chronic) (peripheral) chronic 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 Ulcer of left lower extremity with fat layer exposed resolved Edema chronic History of DVT (deep vein thrombosis) chronic Hyperlipidemia chronic Hypertension chronic Lymphedema chronic Venous insufficiency (chronic) (peripheral) chronic 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 [facility] Work Phone: Evaluation note* Diagnosis Onset Date Resolution Status Edema chronic History of CVA (cerebrovascular accident) chronic Lymphedema chronic Venous insufficiency chronic 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 Ulcer of left lower extremity with fat layer exposed resolved Edema chronic History of CVA (cerebrovascular accident) chronic History of DVT (deep vein thrombosis) chronic Hyperlipidemia chronic Hypertension chronic Lymphedema chronic Venous insufficiency chronic Venous insufficiency (chronic) (peripheral) chronic 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 Ulcer of left lower extremity with fat layer exposed resolved Edema chronic History of DVT (deep vein thrombosis) chronic Hyperlipidemia chronic Hypertension chronic Lymphedema chronic Venous insufficiency (chronic) (peripheral) chronic 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 Edema chronic History of DVT (deep vein thrombosis) chronic Hyperlipidemia chronic Hypertension chronic Lymphedema chronic Venous insufficiency (chronic) (peripheral) chronic 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 [facility] Work Phone: Evaluation note* Diagnosis Onset Date Resolution Status Edema chronic History of CVA (cerebrovascular accident) chronic History of DVT (deep vein thrombosis) chronic Hyperlipidemia chronic Hypertension chronic Lymphedema chronic Venous insufficiency chronic Venous insufficiency (chronic) (peripheral) chronic 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 Ulcer of left lower extremity with fat layer exposed resolved Edema chronic History of DVT (deep vein thrombosis) chronic Hyperlipidemia chronic Hypertension chronic Lymphedema chronic Venous insufficiency (chronic) (peripheral) chronic 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 Edema chronic History of DVT (deep vein thrombosis) chronic Hyperlipidemia chronic Hypertension chronic Lymphedema chronic Venous insufficiency (chronic) (peripheral) chronic 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 Edema chronic History of DVT (deep vein thrombosis) chronic Hyperlipidemia chronic Hypertension chronic Lymphedema chronic Venous insufficiency (chronic) (peripheral) chronic 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 [facility] Work Phone: Evaluation note* Diagnosis Onset Date Resolution Status Edema chronic History of DVT (deep vein thrombosis) chronic Hyperlipidemia chronic Hypertension chronic Lymphedema chronic Venous insufficiency (chronic) (peripheral) chronic 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 Edema chronic History of DVT (deep vein thrombosis) chronic Hyperlipidemia chronic Hypertension chronic Lymphedema chronic Venous insufficiency (chronic) (peripheral) chronic 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 Edema chronic History of DVT (deep vein thrombosis) chronic Hyperlipidemia chronic Hypertension chronic Lymphedema chronic Venous insufficiency (chronic) (peripheral) chronic 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 Edema chronic History of DVT (deep vein thrombosis) chronic Hyperlipidemia chronic Hypertension chronic Lymphedema chronic Venous insufficiency (chronic) (peripheral) chronic 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 [facility] Work Phone: History and physical note Author Dr. Erazo [facility] November 30, 2022 2:33pm Note Date/Time November 30, 2022 2:07pm [facility] Medical Records Department [address] [place] [address] H&P Exam - Hospitalist 11/30/22 1326 MR#: [id number] Acct: [id number] Name: ESTEBAN URBINA Rep #:[id number] : 1955 67 From: Satya Urena PCP: Dr. Patricia Garcia, DO Status:REG ER Location: ED HPI - General General Date of Admission: 11/30/22 Date of Service: 11/30/22 Chief Complaint: Bilateral leg cellulitis, fall and laceration of head HPI Narrative ESTEBAN URBINA, is a 67 M with history of stroke in 2008 with left-sided weaknesson wheeled walker came to ED after he slipped and fall on the drainage of his leg. He has copious large drainage from both legs, left more than right with superficial ulceration and excoriation. Patient fell forward, striking his faceand has small laceration wound on the right supraorbital margin which was stitched in the ED. No loss of consciousness, no dizziness/near syncope. He said he has drainage/seepage from laying which is started on 2021 progressively worsening since then. Started with the left leg and then progressed. He is see and Ashely Lopes in wound clinic last visit on 11/26/2022 from where he was referred to ED. Diagnosis was bilateral lymphedema with venousstasis dermatitis and ulceration. Patient was sent home after blood work. Patient also lives alone and has decreased ADL and mobility. Patient denies fever or chill. No headache. Patient has severe pain over both lower legs left more than right after bandages sticks to the wound. Patient also has restricted mobility of left shoulder and elbow after stroke but got worse after fall today. Patient had CT brain which showed old left infarct of right thalamus, CT C-spine reported multilevel degenerative changes. Shoulder x-ray degenerative changes no acute abnormality. Abdominal pelvis CT shows mildly distended GB with multiple gallstones. IVC filter. Prostatic enlargement with indentation of bladder base. Patient on warfarin. INR therapeutic [facility] Medical History Alcohol use History of edema History of pain when walking History of stress test Hypertension Lupus Non-smoker Pulmonary embolism Seizures Stroke/cerebrovascular accident Uses wheelchair Wears glasses Home Medications lisinopril 5 mg tablet 10 mg PO BID blood pressure 08/27/15 [History Last Taken 02/14/19 07:30] omega-3 fatty acids 500 mg capsule (Fish Oil) 1,000 mg PO DAILY supplement 08/27/15 [History Last Taken 07/01/22] Clonidine Hcl 1 tab PO BID Blood pressure\ 02/07/19 [History Last Taken 02/14/19 07:30] baclofen 10 mg tablet 10 mg PO .QID PRN Muscle Spasm 04/14/22 [History Last Taken Unknown] methadone 10 mg tablet 10 mg PO Q12H 04/14/22 [History Last Taken Unknown] niacin 50 mg tablet 25 mg PO DAILY 04/14/22 [History Last Taken Unknown] phenytoin sodium extended 100 mg capsule (Dilantin Extended) 200 mg PO DAILY 04/14/22 [History Last Taken 07/07/22 06:15] pregabalin 75 mg capsule (Lyrica) 75 mg PO TID 04/14/22 [History Last Taken Unknown] turmeric root extract 500 mg capsule 100 mg PO BID supplement 04/14/22 [History Last Taken 07/02/22] warfarin 4 mg tablet (Jantoven) 5 mg PO MOWEFR Blood thinner 04/14/22 [History Last Taken 07/01/22] warfarin 5 mg tablet (Jantoven) 4 mg PO SUTUTHSA blood thinner 04/14/22 [History Last Taken 07/01/22] coenzyme Q10 100 mg capsule (CoQ-10) 100 mg PO QODAY 07/02/22 [History Last Taken Unknown] ergocalciferol (vitamin D2) 1,250 mcg (50,000 unit) capsule (Vitamin D2) 1,250 mcg PO WE 07/02/22 [History Last Taken Unknown] phenytoin sodium extended 100 mg capsule (Dilantin Extended) 100 mg PO QHS 07/02/22 [History Last Taken Unknown] furosemide 20 mg tablet (Lasix) 20 mg PO LUNCH 07/05/22 [History Last Taken Unknown] furosemide 40 mg tablet (Lasix) 40 mg PO DAILY 07/05/22 [History Last Taken Unknown] Allergy/AdvReac Type Severity Reaction Status Date / Time duloxetine [From Cymbalta] Allergy Rash Verified 11/30/22 08:09 sulfamethoxazole Allergy Rash Verified 11/30/22 08:09 [From Bactrim] trimethoprim [From Bactrim] Allergy Rash Verified 11/30/22 08:09 ciprofloxacin [From Cipro] AdvReac PAIN IN Verified 11/30/22 08:09 FEET ciprofloxacin HCl AdvReac Rash Verified 11/30/22 08:09 [From Cipro] citalopram AdvReac SUICIDAL Verified 11/30/22 08:09 THOUGHTS gabapentin [From Neurontin] AdvReac EFFECTED Verified 11/30/22 08:09 VISION AND HEARING hydrochlorothiazide AdvReac DIZZINESS Verified 11/30/22 08:09 levetiracetam [From Keppra] AdvReac Other Verified 11/30/22 08:09 Rcavket-HSL-LnJ Reductase AdvReac Other Verified 11/30/22 08:09 Inhibitor tramadol AdvReac Other Verified 11/30/22 08:09 Family History Father Colon cancer Hypertension Gastric ulcer Mother Heart disease Brother Diabetes Surgical History History of embolic filter insertion Hx of colonoscopy Social History household members: none Smoking Status: Never smoker alcohol intake: never substance use type: does not use ROS ROS Narrative Constitutional: Reports fatigue and weakness, decreased ADL, not able to take care of himself HEENT: Reports systems reviewed and no addt'l complaints, except as documented Respiratory/Chest: Denies chest pain, shortness of breath at rest or with exertion Gastrointestinal: Denies coffee ground emesis, hematemesis or vomiting Genitourinary: Chronic increased frequency.Small bladder and BPH. Denies burning urination or new urinary tract symptoms Musculoskeletal: Left-sided weakness. Chronic pain in left upper shoulder Neurologic: Denies recent seizure-like activity. Stroke with left-sided weakness. skin: As described in HPI Endocrinology: Denies diabetes mellitus. Reports systems reviewed and no addt'lcomplaints, except as documented Hematologic/Lymphatic: Bilateral lower leg lymphedema, chronic. Reports systemsreviewed and no addt'l complaints, except as documented Rest 14 ROS are negative except as mentioned in HPI Vital Signs Vital Signs Vital Signs: 11/30/22 08:02 11/30/22 08:11 11/30/22 13:19 Temperature 96.6 F L 97.9 F Temperature Source Temporal Temporal Pulse Rate 91 110 H Respiratory Rate 16 18 Respiratory Effort Normal Respiratory Depth Normal Respiratory Pattern Normal Blood Pressure 119/78 127/72 H Blood Pressure Mean 91 90 Pulse Ox 98 98 Oxygen Delivery Method Room Air Room Air 11/30/22 13:19 Temperature Temperature Source Pulse Rate 110 H Respiratory Rate 20 H Respiratory Effort Respiratory Depth Respiratory Pattern Blood Pressure 127/72 H Blood Pressure Mean 90 Pulse Ox 97 Oxygen Delivery Method Room Air Weight Weight: 261 lb 0.437 oz Body Mass Index (BMI) 42.1 Physical Exam Narrative Physical exam General: Alert, Oriented x3, Cooperative, morbid obesity BMI 42.1 kg/m?. HEENT: Small laceration over right eyebrow, stitched., PERRLA, EOMI, Normocephalic Oral: No oral bleed. No Gingival or Mucosal Lesions/ Ulcerations Neck: Supple, No JVD, Negative Carotid Bruits Lungs: Air entry diminished in bilateral lung bases. No crepitation/rhonchi Cardiovascular: Regular rate, Regular Rhythm, Normal S1, Normal S2, No murmurs Abdomen: Bowel Sounds Present, Soft, Non Tender, Non-Distended : No renal angle tenderness. No suprapubic tenderness. Extremities: Bilateral lower leg edema below knee level. Capillary Refill Less than 3 Seconds Skin: Bilateral lower leg superficial ulceration left worse than right. Greenish and purulent discharge, left worse than right. Musculoskeletal: Bilateral lower leg lymphedema, decreased mobility of both lower legs and left upper extremity. Severe tenderness over both legs, left more than right. Neurological: Chronic stroke with left-sided deficit. Mobility on wheeled walker. Psych/Mental Status: Flat affect Results Lab / Micro Data Result Diagrams: 11/30/22 08:25 11/30/22 08:25 Labs: Laboratory Results - last 24 hr 11/30/22 08:25: WBC 6.6, RBC 4.26 L, Hgb 13.3, Hct 41.5, MCV 97.4 H, MCH 31.2, MCHC 32.0, RDW Std Deviation 50.6 H, RDW Coeff of [place] 14.2, Plt Count 417, MPV 8.9, Immature Gran % (Auto) 0.500, Neut % (Auto) 67.8, Lymph % (Auto) 17.1 L, Perkins % (Auto) 12.0 H, Eos % (Auto) 1.8, Baso % (Auto) 0.8, Absolute Neuts (auto)4.5, Absolute Lymphs (auto) 1.13, Nucleated RBC % 0 11/30/22 08:25: PT 25.2 H, INR 2.3 11/30/22 08:25: Sodium 136, Potassium 4.2, Chloride 101, Carbon Dioxide 29.0, Anion Gap 6, BUN 17, Creatinine 0.87, Estim Creat Clear Calc 76.39, Est GFR (MDRD)Af Amer 113, Est GFR (MDRD) Non-Af 93, BUN/Creatinine Ratio 19.5, Glucose 120 H,Calcium 9.[address] 11/30/22 08:11 IMPRESSION: Chronic involutional changes of the brain. Old lacunar infarct of the right thalamus. Electronically Signed: Timo Durham MD at 9:10 EST , Cervical Spine CT 11/30/22 08:11 IMPRESSION: Multilevel degenerative changes, as described above. Electronically Signed: Timo Durham MD at 9:04 EST , Shoulder X-Ray 11/30/22 10:02 IMPRESSION: Degenerative changes. No acute abnormality is seen. Electronically Signed: Timo Durham MD at 11:17 EST , Abdomen/Pelvis CT 11/30/22 10:03 IMPRESSION: Mildly distended gallbladder with multiple gallstones. A filter is seen within the inferior vena cava with the evidence of multiple varicosities in the subcutaneous tissues overlying the right lower abdominal and pelvic wall as well as in the abdomen and pelvis. There has been essentially no change since prior study. Prostatic enlargement with indentation of the bladder base. Electronically Signed: Timo Durham MD at 11:17 EST , Assessment & Plan Assessment/Plan (1) Cellulitis and abscess of leg: PLAN: Plan This 67 old gentleman is being admitted for bilateral lower extremity cellulitiscomplicated with greenish purulent drainage and possible superficial abscess 1. Acute on chronic bilateral lower extremity cellulitis complicated with ulceration and drainage, bilateral lower extremity venous stasis and lymphedema:Patient is being admitted for on MedSurg floor. Podiatry consult. Wound culture with MRSA and blood cultures x2. Patient started on broad-spectrum IV antibiotic vancomycin and Zosyn. Wound care nurse consult. 2. Bilateral lower extremity edema and bilateral lymphedema: Patient on oral furosemide at home probably not working. Started on IV furosemide 40 mg every 12 hourly. 2D echo ordered. Patient denies any prior history of heart disease but has restricted mobility and mild shortness of breath on exertion. BNP ordered 3. Slip and fall and small laceration of right supraorbital margin: Lacerated wound was stitched by ED physician. No loss of consciousness. Patient had CT brain which showed old left infarct of right thalamus, CT C-spine reported multilevel degenerative changes. Right Shoulder x-ray degenerative changes no acute abnormality. Abdominal pelvis CT shows mildly distended GB with multiple gallstones. IVC filter. Prostatic enlargement with indentation of bladder base. 4. History of pulmonary embolism: Patient on warfarin, continued. INR therapeutic. Patient had IVC filter as reported in his abdomen pelvis CT. Monitor INR daily. 5. Stroke in 2008 with restricted mobility: PT and OT ordered. No new finding pertaining to stroke. 6. Other multiple comorbidities include hypertension, chronic alcohol use, lupus, seizure: Currently patient blood pressure is in systolic 100s to 120s therefore will hold lisinopril clonidine. Resume as blood pressure goes high more than 130. VTE prophylaxis: On warfarin. Living will/advanced directive/end of life care: Patient does have living will or advanced directive. His daughter is power of trademark attorney for health. After discussion of benefits/risks procedures involved with full code, DNR CC arrest and DNR CC, the patient opted for DNRCC arrest with no intubation Patient doesn't want artificial life support including intubation, tube feed, ventilator and/chest compression, central venous catheter, vasopressor and DC shock if needed Total time spent in [id number] encounter in discussion of advanced directive 17 minutes. Charges/Coding Visit Charges Inpatient E&M: 83511 Init Hosp L3 Procedures Hospitalists Procedures: 66801 Advncd Care Plan 30 Min 11/30/22 1433 <Electronically signed by Satya Erazo MD> Cosigner Signature (if applicable): CC: Dr. Patricia Garcia DO; Dr. Satya Erazo MD~ Signed [facility] Work Phone: Reason for referral (narrative)No reason for referral information availableWWyandot [facility] Work Phone: Summary Purpose Family History No Family History Records Found Relationship Condition Age at Onset Recorded Date/T jinny Unknown Family History?Cancer Unknown February 9:12am Family History?Heart Disease, Hypertension Unknown August 30, 2014 1:46pm Family History?Heart Disease, Hypertension Unknown February 07, 2019 9:12am Relationship Condition Age at Onset Recorded Date/T jinny father Malignant neoplasm of colon Unknown Hypertension Unknown Gastric ulcer Unknown mother Cardiac disease Unknown brother Diabetes mellitus Unknown Advance Directives No Advanced Directives Records Found Advance Directive Response Recorded Date/ Time Advance Directives Yes September 9:10am Living Will Yes January 01, 2021 11:36am Power of Data Center Operator Yes January 01 11:36am Advance Directive Response Recorded Date/ Time Name of Medical Power of Data Center Operator SISTER July 02, 2022 2:15pm Advance Directives Yes September 9:10am Living Will Yes July 02, 2022 2:15pm Power of Data Center Operator Yes June 2:15pm Advance Directive Response Recorded Date/ Time Name of Medical Power of Data Center Operator SISTER July 02, 2022 1:15pm Advance Directives Yes September 8:10am Living Will Yes July 02, 2022 1:15pm Power of Data Center Operator Yes June 1:15pm Advance Directive Response Recorded Date/ Time Advance Directives Yes September 8:10am Living Will Yes July 02, 2022 1:15pm Power of Data Center Operator Yes June 1:15pm Advance Directive Response Recorded Date/ Time Advance Directives Yes September 8:10am Living Will No November 30, 2 023 8:10am Power of Data Center Operator No November 30, 2022 8:10am Advance Directive Response Recorded Date/ Time Name of Medical Power of Data Center Operator Sirena Zaldivarlorin November 30, 2022 3:21pm Advance Directives Yes September 8:10am Living Will Yes November 30, 2 023 3:21pm Power of Data Center Operator Yes November 30, 2022 3:21pm Advance Directive Response Recorded Date/ Time Name of Medical Power of Data Center Operator Sirena Kourtney November 30, 2022 4:21pm Advance Directives Yes September 9:10am Living Will Yes November 30, 2 023 4:21pm Power of Data Center Operator Yes November 30, 2022 4:21pm Advance Directive Response Recorded Date/ Time Advance Directives Yes September 9:10am Living Will Yes November 30, 2 023 4:21pm Power of Data Center Operator Yes November 30, 2022 4:21pm Advance Directive Response Recorded Date/ Time Advance Directives Yes September 8:10am Living Will Yes November 30, 2 023 3:21pm Power of Data Center Operator Yes November 30, 2022 3:21pm Advance Directive Response Recorded Date/ Time Living Will Yes September 09 1:18am Do you have a Healthcare Pow er of Data Center Operator? Yes September 09, 2024 1:18am Living Will Yes October 10 1:13am Do you have a Healthcare Pow er of Data Center Operator? Yes October 10, 2024 1:13am Living Will Yes November 10 1:39am Do you have a Healthcare Pow er of Data Center Operator? Yes November 10, 2024 1:39am Living Will Yes December 07, 025 3:28pm Do you have a Healthcare Pow er of Data Center Operator? Yes December 07, 2024 3:28pm Name of Medical Power of Data Center Operator KACY CALIX December 07, 2024 3:28pm Living Will Yes December 08, 2024 1:34am Do you have a Healthcare Pow er of Data Center Operator? Yes December 08, 2024 1:34am Living Will Yes December 24, 2024 9:16am Do you have a Healthcare Pow er of Data Center Operator? Yes December 24, 2024 9:16am Name of Medical Power of Data Center Operator KACY Nation ISHALEY December 24, 2024 9:16am Advance Directives Yes September 9:10am Advance Directive Response Recorded Date/ Time Living Will Yes October 10 1:13am Do you have a Healthcare Pow er of Data Center Operator? Yes October 10, 2024 1:13am Living Will Yes November 10 1:39am Do you have a Healthcare Pow er of Data Center Operator? Yes November 10, 2024 1:39am Living Will Yes December 07 3:28pm Do you have a Healthcare Pow er of Data Center Operator? Yes December 07, 2024 3:28pm Name of Medical Power of Data Center Operator KACY CALIX December 07, 2024 3:28pm Living Will Yes December 08, 2024 1:34am Do you have a Healthcare Pow er of Data Center Operator? Yes December 08, 2024 1:34am Living Will Yes January 08, 2025 12:12am Do you have a Healthcare Pow er of Data Center Operator? Yes January 08, 2025 12:12am Living Will Yes February 07, 2025 12 :08am Do you have a Healthcare Pow er of Data Center Operator? Yes February 07, 2025 12:08am Living Will Yes December 24, 2024 9:16am Do you have a Healthcare Pow er of Data Center Operator? Yes December 24, 2024 9:16am Name of Medical Power of Data Center Operator KACY Nation ISHALEY December 24, 2024 9:16am Advance Directives Yes September 9:10am Advance Directive Response Recorded Date/ Time Living Will Yes November 10 1:39am Do you have a Healthcare Pow er of Data Center Operator? Yes November 10, 2024 1:39am Living Will Yes December 07, 025 3:28pm Do you have a Healthcare Pow er of Data Center Operator? Yes December 07, 2024 3:28pm Name of Medical Power of Data Center Operator KACY CALIX December 07, 2024 3:28pm Living Will Yes December 08, 2024 1:34am Do you have a Healthcare Pow er of Data Center Operator? Yes December 08, 2024 1:34am Living Will Yes January 08, 2025 12:12am Do you have a Healthcare Pow er of Data Center Operator? Yes January 08, 2025 12:12am Living Will Yes February 07, 2025 12 :08am Do you have a Healthcare Pow er of Data Center Operator? Yes February 07, 2025 12:08am Living Will Yes December 24, 2024 9:16am Do you have a Healthcare Pow er of Data Center Operator? Yes December 24, 2024 9:16am Name of Medical Power of Data Center Operator KACY Nation ISHALEY December 24, 2024 9:16am Advance Directives Yes September 9:10am Advance Directive Response Recorded Date/ Time Living Will Yes December 07 3:28pm Do you have a Healthcare Pow er of Data Center Operator? Yes December 07, 2024 3:28pm Name of Medical Power of Data Center Operator KACY JERRYTEJAL December 07, 2024 3:28pm Living Will Yes December 08, 2024 1:34am Do you have a Healthcare Pow er of Data Center Operator? Yes December 08, 2024 1:34am Living Will Yes January 08, 2025 12:12am Do you have a Healthcare Pow er of Data Center Operator? Yes January 08, 2025 12:12am Living Will Yes February 07, 2025 12 :08am Do you have a Healthcare Pow er of Data Center Operator? Yes February 07, 2025 12:08am Living Will Yes December 24, 2024 9:16am Do you have a Healthcare Pow er of Data Center Operator? Yes December 24, 2024 9:16am Name of Medical Power of Data Center Operator KACY COLVIN December 24, 2024 9:16am Living Will Yes March 10, 2025 1 2:06am Do you have a Healthcare Pow er of Data Center Operator? Yes March 10, 2025 12:06am Advance Directives Yes September 9:10am Advance Directive Response Recorded Date/ Time Living Will Yes January 08, 2025 12:12am Do you have a Healthcare Power of Data Center Operator? Yes January 08, 2025 12:12am Living Will Yes February 07, 2025 12 :08am Do you have a Healthcare Power of Data Center Operator? Yes February 07, 2025 12:08am Living Will Yes March 10, 2025 1 2:06am Do you have a Healthcare Power of Data Center Operator? Yes March 10, 2025 12:06am Advance Directives Yes September 9:10am Chief Complaint and Reason for Visit Chief Complaint wound Reason for Visit Ulcer of right lower extremity with fat layer exposed 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 Chronic pain disorder History of CVA (cerebrovascular accident) History of DVT (deep vein thrombosis) History of pulmonary embolism Hypertension Lymphedema Seizure disorder Venous ulcer of both lower extremities with varicose veins Ulcer of left lower extremity with fat layer exposed Chief Complaint wound wound Reason for Visit Ulcer of right lower extremity with fat layer exposed 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 Chronic pain disorder History of CVA (cerebrovascular accident) History of DVT (deep vein thrombosis) History of pulmonary embolism Hypertension Lymphedema Seizure disorder Venous ulcer of both lower extremities with varicose veins Ulcer of left lower extremity with fat layer exposed Ulcer of right lower extremity with fat layer exposed Chronic L sided weakness Chronic pain disorder Edema History of CVA (cerebrovascular accident) Hypertension Lymphedema Seizure disorder Ulcer of left lower extremity with fat layer exposed Chief Complaint wound wound wound Reason for Visit Ulcer of right lower extremity with fat layer exposed 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 Chronic pain disorder History of CVA (cerebrovascular accident) History of DVT (deep vein thrombosis) History of pulmonary embolism Hypertension Lymphedema Seizure disorder Venous ulcer of both lower extremities with varicose veins Ulcer of left lower extremity with fat layer exposed Ulcer of right lower extremity with fat layer exposed Chronic L sided weakness Chronic pain disorder Edema History of CVA (cerebrovascular accident) Hypertension Lymphedema Seizure disorder Ulcer of left lower extremity with fat layer exposed Ulcer of right lower extremity with fat layer exposed Chronic L sided weakness Chronic pain disorder Edema History of CVA (cerebrovascular accident) History of DVT (deep vein thrombosis) History of pulmonary embolism Hypertension Lymphedema Venous insufficiency Venous ulcer of both lower extremities with varicose veins Venous ulcer of left lower extremity with varicose veins Venous ulcers of both lower extremities Ulcer of left lower extremity with fat layer exposed Chief Complaint wound wound wound VENOUS INSUFFICIENCY wound Reason for Visit Ulcer of right lower extremity with fat layer exposed 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 Chronic pain disorder History of CVA (cerebrovascular accident) History of DVT (deep vein thrombosis) History of pulmonary embolism Hypertension Lymphedema Seizure disorder Venous ulcer of both lower extremities with varicose veins Ulcer of left lower extremity with fat layer exposed Ulcer of right lower extremity with fat layer exposed Chronic L sided weakness Chronic pain disorder Edema History of CVA (cerebrovascular accident) Hypertension Lymphedema Seizure disorder Ulcer of left lower extremity with fat layer exposed Ulcer of right lower extremity with fat layer exposed Chronic L sided weakness Chronic pain disorder Edema History of CVA (cerebrovascular accident) History of DVT (deep vein thrombosis) History of pulmonary embolism Hypertension Lymphedema Venous insufficiency Venous ulcer of both lower extremities with varicose veins Venous ulcer of left lower extremity with varicose veins Venous ulcers of both lower extremities Ulcer of left lower extremity with fat layer exposed Ulcer of right lower extremity with fat layer exposed Edema History of CVA (cerebrovascular accident) Lymphedema Venous insufficiency Venous ulcer of both lower extremities with varicose veins Venous ulcer of left lower extremity with varicose veins Venous ulcers of both lower extremities Ulcer of left lower extremity with fat layer exposed Chief Complaint wound wound VENOUS INSUFFICIENCY wound COLONOSCOPY wound Reason for Visit Ulcer of right lower extremity with fat layer exposed Chronic L sided weakness Chronic pain disorder Edema History of CVA (cerebrovascular accident) Hypertension Lymphedema Seizure disorder Ulcer of left lower extremity with fat layer exposed Ulcer of right lower extremity with fat layer exposed Chronic L sided weakness Chronic pain disorder Edema History of CVA (cerebrovascular accident) History of DVT (deep vein thrombosis) History of pulmonary embolism Hypertension Lymphedema Venous insufficiency Venous ulcer of both lower extremities with varicose veins Venous ulcer of left lower extremity with varicose veins Venous ulcers of both lower extremities Ulcer of left lower extremity with fat layer exposed Ulcer of right lower extremity with fat layer exposed Edema History of CVA (cerebrovascular accident) Lymphedema Venous insufficiency Venous ulcer of both lower extremities with varicose veins Venous ulcer of left lower extremity with varicose veins Venous ulcers of both lower extremities Ulcer of left lower extremity with fat layer exposed Chronic anticoagulation FH: colon cancer in first degree relative <60 years old Hx of colonic polyp Ulcer of right lower extremity with fat layer exposed Edema History of CVA (cerebrovascular accident) Lymphedema Venous insufficiency Venous ulcer of both lower extremities with varicose veins Venous ulcer of left lower extremity with varicose veins Venous ulcers of both lower extremities Ulcer of left lower extremity with fat layer exposed Chief Complaint wound wound VENOUS INSUFFICIENCY wound COLONOSCOPY wound wound Reason for Visit Ulcer of right lower extremity with fat layer exposed Chronic L sided weakness Chronic pain disorder Edema History of CVA (cerebrovascular accident) Hypertension Lymphedema Seizure disorder Ulcer of left lower extremity with fat layer exposed Ulcer of right lower extremity with fat layer exposed Chronic L sided weakness Chronic pain disorder Edema History of CVA (cerebrovascular accident) History of DVT (deep vein thrombosis) History of pulmonary embolism Hypertension Lymphedema Venous insufficiency Venous ulcer of both lower extremities with varicose veins Venous ulcer of left lower extremity with varicose veins Venous ulcers of both lower extremities Ulcer of left lower extremity with fat layer exposed Ulcer of right lower extremity with fat layer exposed Edema History of CVA (cerebrovascular accident) Lymphedema Venous insufficiency Venous ulcer of both lower extremities with varicose veins Venous ulcer of left lower extremity with varicose veins Venous ulcers of both lower extremities Ulcer of left lower extremity with fat layer exposed Chronic anticoagulation FH: colon cancer in first degree relative <60 years old Hx of colonic polyp Ulcer of right lower extremity with fat layer exposed Edema History of CVA (cerebrovascular accident) Lymphedema Venous insufficiency Venous ulcer of both lower extremities with varicose veins Venous ulcer of left lower extremity with varicose veins Venous ulcers of both lower extremities Ulcer of left lower extremity with fat layer exposed Ulcer of right lower extremity with fat layer exposed Edema History of CVA (cerebrovascular accident) Lymphedema Venous insufficiency Venous ulcer of both lower extremities with varicose veins Venous ulcer of left lower extremity with varicose veins Venous ulcers of both lower extremities Ulcer of left lower extremity with fat layer exposed Chief Complaint VENOUS INSUFFICIENCY wound COLONOSCOPY wound wound LABWORK Reason for Visit Ulcer of right lower extremity with fat layer exposed Edema History of CVA (cerebrovascular accident) Lymphedema Venous insufficiency Venous ulcer of both lower extremities with varicose veins Venous ulcer of left lower extremity with varicose veins Venous ulcers of both lower extremities Ulcer of left lower extremity with fat layer exposed Chronic anticoagulation FH: colon cancer in first degree relative <60 years old Hx of colonic polyp Ulcer of right lower extremity with fat layer exposed Edema History of CVA (cerebrovascular accident) Lymphedema Venous insufficiency Venous ulcer of both lower extremities with varicose veins Venous ulcer of left lower extremity with varicose veins Venous ulcers of both lower extremities Ulcer of left lower extremity with fat layer exposed Ulcer of right lower extremity with fat layer exposed Edema History of CVA (cerebrovascular accident) Lymphedema Venous insufficiency Venous ulcer of both lower extremities with varicose veins Venous ulcer of left lower extremity with varicose veins Venous ulcers of both lower extremities Ulcer of left lower extremity with fat layer exposed Chief Complaint VENOUS INSUFFICIENCY wound COLONOSCOPY wound wound LABWORK Reason for Visit Ulcer of right lower extremity with fat layer exposed Edema History of CVA (cerebrovascular accident) Lymphedema Venous insufficiency Venous ulcer of both lower extremities with varicose veins Venous ulcer of left lower extremity with varicose veins Venous ulcers of both lower extremities Ulcer of left lower extremity with fat layer exposed Chronic anticoagulation FH: colon cancer in first degree relative <60 years old Hx of colonic polyp Ulcer of right lower extremity with fat layer exposed Edema History of CVA (cerebrovascular accident) Lymphedema Venous insufficiency Venous ulcer of both lower extremities with varicose veins Venous ulcer of left lower extremity with varicose veins Venous ulcers of both lower extremities Ulcer of left lower extremity with fat layer exposed Ulcer of right lower extremity with fat layer exposed Edema History of CVA (cerebrovascular accident) Lymphedema Venous insufficiency Venous ulcer of both lower extremities with varicose veins Venous ulcer of left lower extremity with varicose veins Venous ulcers of both lower extremities Ulcer of left lower extremity with fat layer exposed Chronic anticoagulation FH: colon cancer in first degree relative <60 years old Hx of colonic polyp Chief Complaint wound COLONOSCOPY wound wound LABWORK HOMEDRAW LABWORK HOMEDRAW LABWORK Reason for Visit Ulcer of right lower extremity with fat layer exposed Edema History of CVA (cerebrovascular accident) Lymphedema Venous insufficiency Venous ulcer of both lower extremities with varicose veins Venous ulcer of left lower extremity with varicose veins Venous ulcers of both lower extremities Ulcer of left lower extremity with fat layer exposed Chronic anticoagulation FH: colon cancer in first degree relative <60 years old Hx of colonic polyp Ulcer of right lower extremity with fat layer exposed Edema History of CVA (cerebrovascular accident) Lymphedema Venous insufficiency Venous ulcer of both lower extremities with varicose veins Venous ulcer of left lower extremity with varicose veins Venous ulcers of both lower extremities Ulcer of left lower extremity with fat layer exposed Ulcer of right lower extremity with fat layer exposed Edema History of CVA (cerebrovascular accident) Lymphedema Venous insufficiency Venous ulcer of both lower extremities with varicose veins Venous ulcer of left lower extremity with varicose veins Venous ulcers of both lower extremities Ulcer of left lower extremity with fat layer exposed Chronic anticoagulation FH: colon cancer in first degree relative <60 years old Hx of colonic polyp Chief Complaint wound LABWORK HOMEDRAW LABWORK HOMEDRAW LABWORK HOMEDRAW LABWORK HOME DRAW LAB WORK Reason for Visit Ulcer of right lower extremity with fat layer exposed Edema History of CVA (cerebrovascular accident) Lymphedema Venous insufficiency Venous ulcer of both lower extremities with varicose veins Venous ulcer of left lower extremity with varicose veins Venous ulcers of both lower extremities Ulcer of left lower extremity with fat layer exposed Chronic anticoagulation FH: colon cancer in first degree relative <60 years old Hx of colonic polyp Chief Complaint [facility] LABWORK H[facility] LABWORK H[facility] LABWORK HOME DRAW LAB WORK LABWORK Reason for Visit Chronic anticoagulat ion FH: colon cancer in first degree relative <60 years old Hx of colonic polyp Chief Complaint [facility]RAW LABWORK HOME DRAW LAB WORK LABWORK LABWORK wound Reason for Visit Ulcer of right lower extremity with fat layer exposed Edema History of CVA (cerebrovascular accident) Lymphedema Venous insufficiency Venous ulcer of both lower extremities with varicose veins Venous ulcer of left lower extremity with varicose veins Venous ulcers of both lower extremities Ulcer of left lower extremity with fat layer exposed Chief Complaint [facility] LABWORK HOME DRAW LAB WORK LABWORK LABWORK wound [place] LEGS Reason for Visit Ulcer of right lower extremity with fat layer exposed Edema History of CVA (cerebrovascular accident) Lymphedema Venous insufficiency Venous ulcer of both lower extremities with varicose veins Venous ulcer of left lower extremity with varicose veins Venous ulcers of both lower extremities Ulcer of left lower extremity with fat layer exposed Chief Complaint [facility] LABWORK HOME DRAW LAB WORK LABWORK LABWORK wound [place] LEGS LABWORK FALL, GROSS CELLULITIS AND DRAINAGE WOUND, FALL Reason for Visit Ulcer of right lower extremity with fat layer exposed Edema History of CVA (cerebrovascular accident) Lymphedema Venous insufficiency Venous ulcer of both lower extremities with varicose veins Venous ulcer of left lower extremity with varicose veins Venous ulcers of both lower extremities Ulcer of left lower extremity with fat layer exposed Abdominal contusion Cellulitis and abscess of leg Contusion of right shoulder Fall Laceration of forehead Leg wound, left Chief Complaint [facility] LABWORK HOME DRAW LAB WORK LABWORK LABWORK wound [place] LABWORK FALL, GROSS CELLULITIS AND DRAINAGE WOUND, FALL FALL, GROSS CELLULITIS AND DRAINAGE Reason for Visit Ulcer of right lower extremity with fat layer exposed Edema History of CVA (cerebrovascular accident) Lymphedema Venous insufficiency Venous ulcer of both lower extremities with varicose veins Venous ulcer of left lower extremity with varicose veins Venous ulcers of both lower extremities Ulcer of left lower extremity with fat layer exposed Abdominal contusion Cellulitis and abscess of left leg Cellulitis and abscess of leg Contusion of right shoulder Fall Laceration of forehead Leg wound, left Severe protein-calorie malnutrition Chronic pain Lymphedema Non-pressure chronic ulcer of left calf with fat layer exposed Non-pressure chronic ulcer of right calf with fat layer exposed Venous insufficiency (chronic) (peripheral) Chief Complaint [facility]WORK HOME DRAW LAB WORK LABWORK LABWORK wound [place] LABWORK FALL, GROSS CELLULITIS AND DRAINAGE WOUND, FALL FALL, GROSS CELLULITIS AND DRAINAGE FALL, GROSS CELLULITIS AND DRAINAGE FALL, GROSS CELLULITIS AND DRAINAGE FALL, GROSS CELLULITIS AND DRAINAGE FALL, GROSS CELLULITIS AND DRAINAGE FALL, GROSS CELLULITIS AND DRAINAGE FALL, GROSS CELLULITIS AND DRAINAGE Reason for Visit Ulcer of right lower extremity with fat layer exposed Edema History of CVA (cerebrovascular accident) Lymphedema Venous insufficiency Venous ulcer of both lower extremities with varicose veins Venous ulcer of left lower extremity with varicose veins Venous ulcers of both lower extremities Ulcer of left lower extremity with fat layer exposed Abdominal contusion Cellulitis and abscess of left leg Cellulitis and abscess of leg Contusion of right shoulder Fall Laceration of forehead Leg wound, left Severe protein-calorie malnutrition Chronic pain Lymphedema Non-pressure chronic ulcer of left calf with fat layer exposed Non-pressure chronic ulcer of right calf with fat layer exposed Venous insufficiency (chronic) (peripheral) Chief Complaint [facility]WORK HOME DRAW LAB WORK LABWORK LABWORK wound [place] LABWORK FALL, GROSS CELLULITIS AND DRAINAGE WOUND, FALL FALL, GROSS CELLULITIS AND DRAINAGE FALL, GROSS CELLULITIS AND DRAINAGE FALL, GROSS CELLULITIS AND DRAINAGE FALL, GROSS CELLULITIS AND DRAINAGE FALL, GROSS CELLULITIS AND DRAINAGE FALL, GROSS CELLULITIS AND DRAINAGE FALL, GROSS CELLULITIS AND DRAINAGE FALL, GROSS CELLULITIS AND DRAINAGE Reason for Visit Ulcer of right lower extremity with fat layer exposed Edema History of CVA (cerebrovascular accident) Lymphedema Venous insufficiency Venous ulcer of both lower extremities with varicose veins Venous ulcer of left lower extremity with varicose veins Venous ulcers of both lower extremities Ulcer of left lower extremity with fat layer exposed Abdominal contusion Cellulitis and abscess of left leg Cellulitis and abscess of leg Contusion of right shoulder Fall Laceration of forehead Leg wound, left Severe protein-calorie malnutrition Chronic pain Lymphedema Non-pressure chronic ulcer of left calf with fat layer exposed Non-pressure chronic ulcer of right calf with fat layer exposed Venous insufficiency (chronic) (peripheral) Chief Complaint LABWORK LABWORK wound [place] LABWORK FALL, GROSS CELLULITIS AND DRAINAGE WOUND, FALL FALL, GROSS CELLULITIS AND DRAINAGE FALL, GROSS CELLULITIS AND DRAINAGE FALL, GROSS CELLULITIS AND DRAINAGE FALL, GROSS CELLULITIS AND DRAINAGE FALL, GROSS CELLULITIS AND DRAINAGE FALL, GROSS CELLULITIS AND DRAINAGE FALL, GROSS CELLULITIS AND DRAINAGE FALL, GROSS CELLULITIS AND DRAINAGE ALF LABWORK ALF LABWORK wound Reason for Visit Ulcer of right lower extremity with fat layer exposed Edema History of CVA (cerebrovascular accident) Lymphedema Venous insufficiency Venous ulcer of both lower extremities with varicose veins Venous ulcer of left lower extremity with varicose veins Venous ulcers of both lower extremities Ulcer of left lower extremity with fat layer exposed Severe protein-calorie malnutrition Chronic pain Lymphedema Venous insufficiency (chronic) (peripheral) Cellulitis and abscess of left leg Ulcer of right lower extremity with fat layer exposed Edema History of CVA (cerebrovascular accident) Lymphedema Venous insufficiency Venous ulcer of both lower extremities with varicose veins Venous ulcer of left lower extremity with varicose veins Venous ulcers of both lower extremities Ulcer of left lower extremity with fat layer exposed Chief Complaint LABWORK LABWORK wound [place] LABWORK FALL, GROSS CELLULITIS AND DRAINAGE WOUND, FALL FALL, GROSS CELLULITIS AND DRAINAGE FALL, GROSS CELLULITIS AND DRAINAGE FALL, GROSS CELLULITIS AND DRAINAGE FALL, GROSS CELLULITIS AND DRAINAGE FALL, GROSS CELLULITIS AND DRAINAGE FALL, GROSS CELLULITIS AND DRAINAGE FALL, GROSS CELLULITIS AND DRAINAGE FALL, GROSS CELLULITIS AND DRAINAGE ALF LABWORK ALF LABWORK wound wound Reason for Visit Ulcer of right lower extremity with fat layer exposed Edema History of CVA (cerebrovascular accident) Lymphedema Venous insufficiency Venous ulcer of both lower extremities with varicose veins Venous ulcer of left lower extremity with varicose veins Venous ulcers of both lower extremities Ulcer of left lower extremity with fat layer exposed Severe protein-calorie malnutrition Chronic pain Lymphedema Venous insufficiency (chronic) (peripheral) Cellulitis and abscess of left leg Ulcer of right lower extremity with fat layer exposed Edema History of CVA (cerebrovascular accident) Lymphedema Venous insufficiency Venous ulcer of both lower extremities with varicose veins Venous ulcer of left lower extremity with varicose veins Venous ulcers of both lower extremities Ulcer of left lower extremity with fat layer exposed Ulcer of right lower extremity with fat layer exposed Edema History of CVA (cerebrovascular accident) Lymphedema Venous insufficiency Venous ulcer of both lower extremities with varicose veins Venous ulcer of left lower extremity with varicose veins Venous ulcers of both lower extremities Ulcer of left lower extremity with fat layer exposed Chief Complaint LABWORK wound [place] LABWORK FALL, GROSS CELLULITIS AND DRAINAGE WOUND, FALL FALL, GROSS CELLULITIS AND DRAINAGE FALL, GROSS CELLULITIS AND DRAINAGE FALL, GROSS CELLULITIS AND DRAINAGE FALL, GROSS CELLULITIS AND DRAINAGE FALL, GROSS CELLULITIS AND DRAINAGE FALL, GROSS CELLULITIS AND DRAINAGE FALL, GROSS CELLULITIS AND DRAINAGE FALL, GROSS CELLULITIS AND DRAINAGE ALF LABWORK ALF LABWORK wound wound wound Reason for Visit Ulcer of right lower extremity with fat layer exposed Edema History of CVA (cerebrovascular accident) Lymphedema Venous insufficiency Venous ulcer of both lower extremities with varicose veins Venous ulcer of left lower extremity with varicose veins Venous ulcers of both lower extremities Ulcer of left lower extremity with fat layer exposed Severe protein-calorie malnutrition Chronic pain Lymphedema Venous insufficiency (chronic) (peripheral) Cellulitis and abscess of left leg Ulcer of right lower extremity with fat layer exposed Edema History of CVA (cerebrovascular accident) Lymphedema Venous insufficiency Venous ulcer of both lower extremities with varicose veins Venous ulcer of left lower extremity with varicose veins Venous ulcers of both lower extremities Ulcer of left lower extremity with fat layer exposed Ulcer of right lower extremity with fat layer exposed Edema History of CVA (cerebrovascular accident) Lymphedema Venous insufficiency Venous ulcer of both lower extremities with varicose veins Venous ulcer of left lower extremity with varicose veins Venous ulcers of both lower extremities Ulcer of left lower extremity with fat layer exposed Ulcer of right lower extremity with fat layer exposed Edema History of CVA (cerebrovascular accident) Lymphedema Venous insufficiency Venous ulcer of both lower extremities with varicose veins Venous ulcer of left lower extremity with varicose veins Venous ulcers of both lower extremities Ulcer of left lower extremity with fat layer exposed Chief Complaint ALF LABWORK ALF LABWORK wound wound wound wound Reason for Visit Ulcer of right lower extremity with fat layer exposed Edema History of CVA (cerebrovascular accident) Lymphedema Venous insufficiency Venous ulcer of both lower extremities with varicose veins Venous ulcer of left lower extremity with varicose veins Venous ulcers of both lower extremities Ulcer of left lower extremity with fat layer exposed Ulcer of right lower extremity with fat layer exposed Edema History of CVA (cerebrovascular accident) Lymphedema Venous insufficiency Venous ulcer of both lower extremities with varicose veins Venous ulcer of left lower extremity with varicose veins Venous ulcers of both lower extremities Ulcer of left lower extremity with fat layer exposed Ulcer of right lower extremity with fat layer exposed Edema History of CVA (cerebrovascular accident) Lymphedema Venous insufficiency Venous ulcer of both lower extremities with varicose veins Venous ulcer of left lower extremity with varicose veins Venous ulcers of both lower extremities Ulcer of left lower extremity with fat layer exposed Ulcer of right lower extremity with fat layer exposed Edema History of CVA (cerebrovascular accident) Lymphedema Venous insufficiency Venous ulcer of both lower extremities with varicose veins Venous ulcer of left lower extremity with varicose veins Venous ulcers of both lower extremities Ulcer of left lower extremity with fat layer exposed Chief Complaint wound wound wound wound Reason for Visit Ulcer of right lower extremity with fat layer exposed Edema History of CVA (cerebrovascular accident) Lymphedema Venous insufficiency Venous ulcer of both lower extremities with varicose veins Venous ulcer of left lower extremity with varicose veins Venous ulcers of both lower extremities Ulcer of left lower extremity with fat layer exposed Ulcer of right lower extremity with fat layer exposed Edema History of CVA (cerebrovascular accident) Lymphedema Venous insufficiency Venous ulcer of both lower extremities with varicose veins Venous ulcer of left lower extremity with varicose veins Venous ulcers of both lower extremities Ulcer of left lower extremity with fat layer exposed Edema History of CVA (cerebrovascular accident) Lymphedema Venous insufficiency Venous ulcer of left lower extremity with varicose veins Ulcer of left lower extremity with fat layer exposed Edema History of CVA (cerebrovascular accident) Lymphedema Venous insufficiency Venous ulcer of left lower extremity with varicose veins Ulcer of left lower extremity with fat layer exposed Chief Complaint wound wound wound wound Reason for Visit Ulcer of right lower extremity with fat layer exposed Edema History of CVA (cerebrovascular accident) Lymphedema Venous insufficiency Venous ulcer of both lower extremities with varicose veins Venous ulcer of left lower extremity with varicose veins Venous ulcers of both lower extremities Ulcer of left lower extremity with fat layer exposed Edema History of CVA (cerebrovascular accident) Lymphedema Venous insufficiency Venous ulcer of left lower extremity with varicose veins Ulcer of left lower extremity with fat layer exposed Edema History of CVA (cerebrovascular accident) Lymphedema Venous insufficiency Venous ulcer of left lower extremity with varicose veins Ulcer of left lower extremity with fat layer exposed Edema History of CVA (cerebrovascular accident) Lymphedema Venous insufficiency Venous ulcer of left lower extremity with varicose veins Ulcer of left lower extremity with fat layer exposed Chief Complaint wound wound wound wound Reason for Visit Edema History of CVA (cerebrovascular accident) Lymphedema Venous insufficiency Venous ulcer of left lower extremity with varicose veins Ulcer of left lower extremity with fat layer exposed Edema History of CVA (cerebrovascular accident) Lymphedema Venous insufficiency Venous ulcer of left lower extremity with varicose veins Ulcer of left lower extremity with fat layer exposed Edema History of CVA (cerebrovascular accident) Lymphedema Venous insufficiency Venous ulcer of left lower extremity with varicose veins Ulcer of left lower extremity with fat layer exposed Edema History of CVA (cerebrovascular accident) Lymphedema Venous insufficiency Venous ulcer of left lower extremity with varicose veins Ulcer of left lower extremity with fat layer exposed Chief Complaint wound wound wound wound Reason for Visit Edema History of CVA (cerebrovascular accident) Lymphedema Venous insufficiency Venous ulcer of left lower extremity with varicose veins Ulcer of left lower extremity with fat layer exposed Edema History of CVA (cerebrovascular accident) Lymphedema Venous insufficiency Venous ulcer of left lower extremity with varicose veins Ulcer of left lower extremity with fat layer exposed Edema History of CVA (cerebrovascular accident) Lymphedema Venous insufficiency Venous ulcer of left lower extremity with varicose veins Ulcer of left lower extremity with fat layer exposed Edema History of CVA (cerebrovascular accident) History of DVT (deep vein thrombosis) Hyperlipidemia Hypertension Lymphedema Venous insufficiency Venous insufficiency (chronic) (peripheral) Venous ulcer of left lower extremity with varicose veins Ulcer of left lower extremity with fat layer exposed Chief Complaint wound wound wound wound Reason for Visit Edema History of CVA (cerebrovascular accident) Lymphedema Venous insufficiency Venous ulcer of left lower extremity with varicose veins Ulcer of left lower extremity with fat layer exposed Edema History of CVA (cerebrovascular accident) Lymphedema Venous insufficiency Venous ulcer of left lower extremity with varicose veins Ulcer of left lower extremity with fat layer exposed Edema History of CVA (cerebrovascular accident) History of DVT (deep vein thrombosis) Hyperlipidemia Hypertension Lymphedema Venous insufficiency Venous insufficiency (chronic) (peripheral) Venous ulcer of left lower extremity with varicose veins Ulcer of left lower extremity with fat layer exposed Edema History of DVT (deep vein thrombosis) Hyperlipidemia Hypertension Lymphedema Venous insufficiency (chronic) (peripheral) Venous ulcer of left lower extremity with varicose veins Chief Complaint wound wound wound wound Reason for Visit Edema History of CVA (cerebrovascular accident) Lymphedema Venous insufficiency Venous ulcer of left lower extremity with varicose veins Ulcer of left lower extremity with fat layer exposed Edema History of CVA (cerebrovascular accident) History of DVT (deep vein thrombosis) Hyperlipidemia Hypertension Lymphedema Venous insufficiency Venous insufficiency (chronic) (peripheral) Venous ulcer of left lower extremity with varicose veins Ulcer of left lower extremity with fat layer exposed Edema History of DVT (deep vein thrombosis) Hyperlipidemia Hypertension Lymphedema Venous insufficiency (chronic) (peripheral) Venous ulcer of left lower extremity with varicose veins Edema History of DVT (deep vein thrombosis) Hyperlipidemia Hypertension Lymphedema Venous insufficiency (chronic) (peripheral) Venous ulcer of left lower extremity with varicose veins Chief Complaint wound wound wound wound Reason for Visit Edema History of CVA (cerebrovascular accident) History of DVT (deep vein thrombosis) Hyperlipidemia Hypertension Lymphedema Venous insufficiency Venous insufficiency (chronic) (peripheral) Venous ulcer of left lower extremity with varicose veins Ulcer of left lower extremity with fat layer exposed Edema History of DVT (deep vein thrombosis) Hyperlipidemia Hypertension Lymphedema Venous insufficiency (chronic) (peripheral) Venous ulcer of left lower extremity with varicose veins Edema History of DVT (deep vein thrombosis) Hyperlipidemia Hypertension Lymphedema Venous insufficiency (chronic) (peripheral) Venous ulcer of left lower extremity with varicose veins Edema History of DVT (deep vein thrombosis) Hyperlipidemia Hypertension Lymphedema Venous insufficiency (chronic) (peripheral) Venous ulcer of left lower extremity with varicose veins Chief Complaint wound wound wound wound Reason for Visit Edema History of DVT (deep vein thrombosis) Hyperlipidemia Hypertension Lymphedema Venous insufficiency (chronic) (peripheral) Venous ulcer of left lower extremity with varicose veins Edema History of DVT (deep vein thrombosis) Hyperlipidemia Hypertension Lymphedema Venous insufficiency (chronic) (peripheral) Venous ulcer of left lower extremity with varicose veins Edema History of DVT (deep vein thrombosis) Hyperlipidemia Hypertension Lymphedema Venous insufficiency (chronic) (peripheral) Venous ulcer of left lower extremity with varicose veins Edema History of DVT (deep vein thrombosis) Hyperlipidemia Hypertension Lymphedema Venous insufficiency (chronic) (peripheral) Venous ulcer of left lower extremity with varicose veins Chief Complaint Admit Date wound October 05, 2024 10:00am wound November 09, 2024 9 :30am PAD November 26, 2024 8:51am wound December 07, 2024 9:30am B LE WOUNDS December 07, 2024 12:53pm B LE WOUNDS December 07, 2024 1:21pm B LE WOUNDS December 08, 2024 8:43 am B LE WOUNDS December 08, 2024 3:47 pm B LE WOUNDS December 09, 2024 12:3 2pm B LE WOUNDS December 09, 2024 1:33 pm B LE WOUNDS December 10, 2024 9:04 am B LE WOUNDS December 10, 2024 11:1 1am B LE WOUNDS December 10, 2024 12:2 0pm B LE WOUNDS December 11, 2024 6:19 am B LE WOUNDS December 11, 2024 2:14 pm B LE WOUNDS December 12, 2024 8:35 am B LE WOUNDS December 12, 2024 12:0 8pm Pre Op Venogram December 21, 2024 12: 13pm PREOP December 25, 2024 1:5 7pm wound January 04, 2025 11: 15am Venogram Possible Stenting Illiac Veins/ IVC, Cath January 07, 2025 7:42am Venogram Possible Stenting Illiac Veins/ IVC, Cath January 07, 2025 10:48am Reason for Visit Admit Date History of DVT (deep vein thrombosis) [place] 2023 10:00am Hyperlipidemia October 05, 2024 10:00am Hypertension October 05, 2024 10:00am Lymphedema October 05, 2024 10:00am Venous insufficiency (chronic) (peripher al) October 05, 2024 10:00am Edema October 05, 2024 10:00am Venous ulcer of left lower extremity wit h varicose veins October 05, 2024 10:00am History of DVT (deep vein thrombosis) Ja nuary 2024 9:30am Hyperlipidemia November 09, 2024 9 :30am Hypertension November 09, 2024 9 :30am Lymphedema November 09, 2024 9 :30am Venous insufficiency (chronic) (peripher al) November 09, 2024 9:30am Ulcer of left lower extremity with fat l guerita exposed November 09, 2024 9:30am Edema November 09, 2024 9 :30am Venous ulcer of left lower extremity wit h varicose veins November 09, 2024 9:30am Venous ulcer of right lower extremity wi th varicose veins November 09, 2024 9:30am History of DVT (deep vein thrombosis) Fe bruary 2024 9:30am Hyperlipidemia December 07, 2024 9:30am Hypertension December 07, 2024 9:30am Lymphedema December 07, 2024 9:30am Venous insufficiency (chronic) (peripher al) December 07, 2024 9:30am Ulcer of left lower extremity with fat l guerita exposed December 07, 2024 9:30am Edema December 07, 2024 9:30am Venous ulcer of left lower extremity wit h varicose veins December 07, 2024 9:30am Venous ulcer of right lower extremity wi th varicose veins December 07, 2024 9:30am Acquired occlusion of inferior vena cava December 07, 2024 12:53pm Cellulitis December 07, 2024 12:53pm Edema December 07, 2024 12:53pm Venous insufficiency December 07, 2024 12:53pm Venous ulcer of left lower extremity wit h varicose veins December 07, 2024 12:53pm Venous ulcer of right lower extremity wi th varicose veins December 07, 2024 12:53pm Acquired occlusion of inferior vena cava December 21, 2024 12:13pm Venous ulcers of both lower extremities December 21, 2024 12:13pm History of DVT (deep vein thrombosis) [facility] 2024 11:15am Hyperlipidemia January 04, 2025 11: 15am Hypertension January 04, 2025 11: 15am Lymphedema January 04, 2025 11: 15am Venous insufficiency (chronic) (peripher al) January 04, 2025 11:15am Ulcer of left lower extremity with fat l guerita exposed January 04, 2025 11:15am Edema January 04, 2025 11: 15am Venous ulcer of left lower extremity wit h varicose veins January 04, 2025 11:15am Venous ulcer of right lower extremity wi th varicose veins January 04, 2025 11:15am Chief Complaint Admit Date wound November 09, 2024 9 :30am PAD November 26, 2024 8:51am wound December 07, 2024 9:30am B LE WOUNDS December 07, 2024 12:53pm B LE WOUNDS December 07, 2024 1:21pm B LE WOUNDS December 08, 2024 8:43 am B LE WOUNDS December 08, 2024 3:47 pm B LE WOUNDS December 09, 2024 12:3 2pm B LE WOUNDS December 09, 2024 1:33 pm B LE WOUNDS December 10, 2024 9:04 am B LE WOUNDS December 10, 2024 11:1 1am B LE WOUNDS December 10, 2024 12:2 0pm B LE WOUNDS December 11, 2024 6:19 am B LE WOUNDS December 11, 2024 2:14 pm B LE WOUNDS December 12, 2024 8:35 am B LE WOUNDS December 12, 2024 12:0 8pm Pre Op Venogram December 21, 2024 12: 13pm PREOP December 25, 2024 1:5 7pm wound January 04, 2025 11: 15am Venogram Possible Stenting Illiac Veins/ IVC, Cath January 07, 2025 7:42am Venogram Possible Stenting Illiac Veins/ IVC, Cath January 07, 2025 10:48am Venogram Possible Stenting Illiac Veins/ IVC, Cath January 08, 2025 8:40am Post Venogram 3-4 WK FU January 29, 2025 10:04am wound February 01, 2025 9:0 0am S/P ILIAC VEIN/IVC ANGIOPLASTY/STENT February 18, 2025 8:58am wound February 22, 2025 10:45 am Reason for Visit Admit Date Hyperlipidemia November 09, 2024 9 :30am Hypertension November 09, 2024 9 :30am Lymphedema November 09, 2024 9 :30am Venous insufficiency (chronic) (peripher al) November 09, 2024 9:30am Ulcer of left lower extremity with fat l guerita exposed November 09, 2024 9:30am Edema November 09, 2024 9 :30am History of DVT (deep vein thrombosis) Ja nuwelcome 2024 9:30am Venous ulcer of left lower extremity wit h varicose veins November 09, 2024 9:30am Venous ulcer of right lower extremity wi th varicose veins November 09, 2024 9:30am Hyperlipidemia December 07, 2024 9:30am Hypertension December 07, 2024 9:30am Lymphedema December 07, 2024 9:30am Venous insufficiency (chronic) (peripher al) December 07, 2024 9:30am Ulcer of left lower extremity with fat l guerita exposed December 07, 2024 9:30am Edema December 07, 2024 9:30am [facility] D[facility]deep vein [facility] 9:30am Venous ulcer of left lower extremity wit h varicose veins December 07, 2024 9:30am Venous ulcer of right lower extremity wi th varicose veins December 07, 2024 9:30am Acquired occlusion of inferior vena cava December 07, 2024 12:53pm Cellulitis December 07, 2024 12:53pm Edema December 07, 2024 12:53pm Venous insufficiency December 07, 2024 12:53pm Venous ulcer of left lower extremity wit h varicose veins December 07, 2024 12:53pm Venous ulcer of right lower extremity wi th varicose veins December 07, 2024 12:53pm Acquired occlusion of inferior vena cava December 21, 2024 12:13pm Venous ulcers of both lower extremities December 21, 2024 12:13pm Hyperlipidemia January 04, 2025 11: 15am Hypertension January 04, 2025 11: 15am Lymphedema January 04, 2025 11: 15am Venous insufficiency (chronic) (peripher al) January 04, 2025 11:15am Ulcer of left lower extremity with fat l guerita exposed January 04, 2025 11:15am Edema January 04, 2025 11: 15am History of DVT (deep vein thrombosis) [facility] 2024 11:15am Venous ulcer of left lower extremity wit h varicose veins January 04, 2025 11:15am Venous ulcer of right lower extremity wi th varicose veins January 04, 2025 11:15am Acquired occlusion of inferior vena cava January 29, 2025 10:04am Venous ulcers of both lower extremities January 29, 2025 10:04am Hyperlipidemia February 01, 2025 9:0 0am Hypertension February 01, 2025 9:0 0am Lymphedema February 01, 2025 9:0 0am Venous insufficiency (chronic) (peripher al) February 01, 2025 9:00am Ulcer of left lower extremity with fat l guerita exposed February 01, 2025 9:00am Edema February 01, 2025 9:0 0am History of DVT (deep vein thrombosis) Ap [facility] 2024 9:00am Venous ulcer of left lower extremity wit h varicose veins February 01, 2025 9:00am Venous ulcer of right lower extremity wi th varicose veins February 01, 2025 9:00am Hyperlipidemia February 22, 2025 10:45 am Hypertension February 22, 2025 10:45 am Lymphedema February 22, 2025 10:45 am Venous insufficiency (chronic) (peripher al) February 22, 2025 10:45am Ulcer of left lower extremity with fat l guerita exposed February 22, 2025 10:45am Edema February 22, 2025 10:45 am History of DVT (deep vein thrombosis) [facility] 2024 10:45am Venous ulcer of left lower extremity wit h varicose veins February 22, 2025 10:45am Venous ulcer of right lower extremity wi th varicose veins February 22, 2025 10:45am Chief Complaint Admit Date PAD November 26, 2024 8:51am wound December 07, 2024 9:30am B LE WOUNDS December 07, 2024 12:53pm B LE WOUNDS December 07, 2024 1:21pm B LE WOUNDS December 08, 2024 8:43 am B LE WOUNDS December 08, 2024 3:47 pm B LE WOUNDS December 09, 2024 12:3 2pm B LE WOUNDS December 09, 2024 1:33 pm B LE WOUNDS December 10, 2024 9:04 am B LE WOUNDS December 10, 2024 11:1 1am B LE WOUNDS December 10, 2024 12:2 0pm B LE WOUNDS December 11, 2024 6:19 am B LE WOUNDS December 11, 2024 2:14 pm B LE WOUNDS December 12, 2024 8:35 am B LE WOUNDS December 12, 2024 12:0 8pm Pre Op Venogram December 21, 2024 12: 13pm PREOP December 25, 2024 1:5 7pm wound January 04, 2025 11: 15am Venogram Possible Stenting Illiac Veins/ IVC, Cath January 07, 2025 7:42am Venogram Possible Stenting Illiac Veins/ IVC, Cath January 07, 2025 10:48am Venogram Possible Stenting Illiac Veins/ IVC, Cath January 08, 2025 8:40am Post Venogram 3-4 WK FU January 29, 2025 10:04am wound February 01, 2025 9:0 0am S/P ILIAC VEIN/IVC ANGIOPLASTY/STENT February 18, 2025 8:58am wound March 08, 2025 11:30 am Reason for Visit Admit Date Hyperlipidemia December 07, 2024 9:30am Hypertension December 07, 2024 9:30am Lymphedema December 07, 2024 9:30am Venous insufficiency (chronic) (peripher al) December 07, 2024 9:30am Ulcer of left lower extremity with fat l guerita exposed December 07, 2024 9:30am Edema December 07, 2024 9:30am History of DVT (deep vein thrombosis) Fe bruary 2024 9:30am Venous ulcer of left lower extremity wit h varicose veins December 07, 2024 9:30am Venous ulcer of right lower extremity wi th varicose veins December 07, 2024 9:30am Acquired occlusion of inferior vena cava December 07, 2024 12:53pm Cellulitis December 07, 2024 12:53pm Edema December 07, 2024 12:53pm Venous insufficiency December 07, 2024 12:53pm Venous ulcer of left lower extremity wit h varicose veins December 07, 2024 12:53pm Venous ulcer of right lower extremity wi th varicose veins December 07, 2024 12:53pm Acquired occlusion of inferior vena cava December 21, 2024 12:13pm Venous ulcers of both lower extremities December 21, 2024 12:13pm Hyperlipidemia January 04, 2025 11: 15am Hypertension January 04, 2025 11: 15am Lymphedema January 04, 2025 11: 15am Venous insufficiency (chronic) (peripher al) January 04, 2025 11:15am Ulcer of left lower extremity with fat l guerita exposed January 04, 2025 11:15am Edema January 04, 2025 11: 15am History of DVT (deep vein thrombosis) [facility] 2024 11:15am Venous ulcer of left lower extremity wit h varicose veins January 04, 2025 11:15am Venous ulcer of right lower extremity wi th varicose veins January 04, 2025 11:15am Acquired occlusion of inferior vena cava January 29, 2025 10:04am Venous ulcers of both lower extremities January 29, 2025 10:04am Hyperlipidemia February 01, 2025 9:0 0am Hypertension February 01, 2025 9:0 0am Lymphedema February 01, 2025 9:0 0am Venous insufficiency (chronic) (peripher al) February 01, 2025 9:00am Ulcer of left lower extremity with fat l guerita exposed February 01, 2025 9:00am Edema February 01, 2025 9:0 0am History of DVT (deep vein thrombosis) [facility] 2024 9:00am Venous ulcer of left lower extremity wit h varicose veins February 01, 2025 9:00am Venous ulcer of right lower extremity wi th varicose veins February 01, 2025 9:00am Hyperlipidemia March 08, 2025 11:30 am Hypertension March 08, 2025 11:30 am Lymphedema March 08, 2025 11:30 am Venous insufficiency (chronic) (peripher al) March 08, 2025 11:30am Ulcer of left lower extremity with fat l guerita exposed March 08, 2025 11:30am Edema March 08, 2025 11:30 am History of DVT (deep vein thrombosis) Koby y 2024 11:30am Venous ulcer of left lower extremity wit h varicose veins March 08, 2025 11:30am Venous ulcer of right lower extremity wi th varicose veins March 08, 2025 11:30am Chief Complaint Admit Date B LE WOUNDS December 07, 2024 12:53pm B LE WOUNDS December 10, 2024 9:04 am B LE WOUNDS December 10, 2024 11:1 1am B LE WOUNDS December 10, 2024 12:2 0pm B LE WOUNDS December 11, 2024 6:19 am B LE WOUNDS December 11, 2024 2:14 pm B LE WOUNDS December 12, 2024 8:35 am B LE WOUNDS December 12, 2024 12:0 8pm Pre Op Venogram December 21, 2024 12: 13pm PREOP December 25, 2024 1:5 7pm wound January 04, 2025 11: 15am Venogram Possible Stenting Illiac Veins/ IVC, Cath January 07, 2025 7:42am Venogram Possible Stenting Illiac Veins/ IVC, Cath January 07, 2025 10:48am Venogram Possible Stenting Illiac Veins/ IVC, Cath January 08, 2025 8:40am Post Venogram 3-4 WK FU January 29, 2025 10:04am wound February 01, 2025 9:0 0am S/P ILIAC VEIN/IVC ANGIOPLASTY/STENT February 18, 2025 8:58am wound March 08, 2025 11:30 am wound April 05, 2025 11:1 5am Reason for Visit Admit Date Acquired occlusion of inferior vena cava December 07, 2024 12:53pm Cellulitis December 07, 2024 12:53pm Edema December 07, 2024 12:53pm Venous insufficiency December 07, 2024 12:53pm Venous ulcer of left lower extremity wit h varicose veins December 07, 2024 12:53pm Venous ulcer of right lower extremity wi th varicose veins December 07, 2024 12:53pm Acquired occlusion of inferior vena cava December 21, 2024 12:13pm Venous ulcers of both lower extremities December 21, 2024 12:13pm Hyperlipidemia January 04, 2025 11: 15am Hypertension January 04, 2025 11: 15am Lymphedema January 04, 2025 11: 15am Venous insufficiency (chronic) (peripher al) January 04, 2025 11:15am Ulcer of left lower extremity with fat l guerita exposed January 04, 2025 11:15am Edema January 04, 2025 11: 15am History of DVT (deep vein thrombosis) Ma [facility] 2024 11:15am Venous ulcer of left lower extremity wit h varicose veins January 04, 2025 11:15am Venous ulcer of right lower extremity wi th varicose veins January 04, 2025 11:15am Acquired occlusion of inferior vena cava January 29, 2025 10:04am Venous ulcers of both lower extremities January 29, 2025 10:04am Hyperlipidemia February 01, 2025 9:0 0am Hypertension February 01, 2025 9:0 0am Lymphedema February 01, 2025 9:0 0am Venous insufficiency (chronic) (peripher al) February 01, 2025 9:00am Ulcer of left lower extremity with fat l guerita exposed February 01, 2025 9:00am Edema February 01, 2025 9:0 0am History of DVT (deep vein thrombosis) Ap ril 2024 9:00am Venous ulcer of left lower extremity wit h varicose veins February 01, 2025 9:00am Venous ulcer of right lower extremity wi th varicose veins February 01, 2025 9:00am Hyperlipidemia March 08, 2025 11:30 am Hypertension March 08, 2025 11:30 am Lymphedema March 08, 2025 11:30 am Venous insufficiency (chronic) (peripher al) March 08, 2025 11:30am Ulcer of left lower extremity with fat l guerita exposed March 08, 2025 11:30am Edema March 08, 2025 11:30 am History of DVT (deep vein thrombosis) Ma y 2024 11:30am Venous ulcer of left lower extremity wit h varicose veins March 08, 2025 11:30am Venous ulcer of right lower extremity wi th varicose veins March 08, 2025 11:30am Hyperlipidemia April 05, 2025 11:1 5am Hypertension April 05, 2025 11:1 5am Lymphedema April 05, 2025 11:1 5am Venous insufficiency (chronic) (peripher al) April 05, 2025 11:15am Ulcer of left lower extremity with fat l guerita exposed April 05, 2025 11:15am Edema April 05, 2025 11:1 5am History of DVT (deep vein thrombosis) [facility] [place] 2024 11:15am Venous ulcer of left lower extremity wit h varicose veins April 05, 2025 11:15am Venous ulcer of right lower extremity wi th varicose veins April 05, 2025 11:15am Chief Complaint Admit Date Post Venogram 3-4 WK FU January 29, 2025 10:04am wound February 01, 2025 9:0 0am S/P ILIAC VEIN/IVC ANGIOPLASTY/STENT February 18, 2025 8:58am wound March 08, 2025 11:30 am wound April 05, 2025 11:1 5am wound May 03, 2025 11:3 0am Reason for Visit Admit Date Acquired occlusion of inferior vena cava January 29, 2025 10:04am Venous ulcers of both lower extremities January 29, 2025 10:04am Hyperlipidemia February 01, 2025 9:0 0am Hypertension February 01, 2025 9:0 0am Lymphedema February 01, 2025 9:0 0am Venous insufficiency (chronic) (peripher al) February 01, 2025 9:00am Ulcer of left lower extremity with fat l guerita exposed February 01, 2025 9:00am Edema February 01, 2025 9:0 0am History of DVT (deep vein thrombosis) Ap ril 2024 9:00am Venous ulcer of left lower extremity wit h varicose veins February 01, 2025 9:00am Venous ulcer of right lower extremity wi th varicose veins February 01, 2025 9:00am Hyperlipidemia March 08, 2025 11:30 am Hypertension March 08, 2025 11:30 am Lymphedema March 08, 2025 11:30 am Venous insufficiency (chronic) (peripher al) March 08, 2025 11:30am Ulcer of left lower extremity with fat l guerita exposed March 08, 2025 11:30am Edema March 08, 2025 11:30 am History of DVT (deep vein thrombosis) Ma y 2024 11:30am Venous ulcer of left lower extremity wit h varicose veins March 08, 2025 11:30am Venous ulcer of right lower extremity wi th varicose veins March 08, 2025 11:30am Hyperlipidemia April 05, 2025 11:1 5am Hypertension April 05, 2025 11:1 5am Lymphedema April 05, 2025 11:1 5am Venous insufficiency (chronic) (peripher al) April 05, 2025 11:15am Ulcer of left lower extremity with fat l guerita exposed April 05, 2025 11:15am Edema April 05, 2025 11:1 5am History of DVT (deep vein thrombosis) [place] 2024 11:15am Venous ulcer of left lower extremity wit h varicose veins April 05, 2025 11:15am Venous ulcer of right lower extremity wi th varicose veins April 05, 2025 11:15am Hyperlipidemia May 03, 2025 11:3 0am Hypertension May 03, 2025 11:3 0am Lymphedema May 03, 2025 11:3 0am Venous insufficiency (chronic) (peripher al) May 03, 2025 11:30am Ulcer of left lower extremity with fat l guerita exposed May 03, 2025 11:30am Edema May 03, 2025 11:3 0am History of DVT (deep vein thrombosis) [facility] [place] 2024 11:30am Venous ulcer of left lower extremity wit h varicose veins May 03, 2025 11:30am Venous ulcer of right lower extremity wi th varicose veins May 03, 2025 11:30am Additional Source Comments (unrecognized sect ion and content) No Status Records FoundNo Status Records Found INFORMATION SOURCE (unrecogn ized section and content) DATE CREATED AUTHOR 05/16/2021 [facility] DATE CREATED AUTHOR AUTHOR'S ORGANIZ ATION [facility]12/[facility] Goals (unrecognized section and content) Goals may be documented in a n alternate sectionGoals may be documented in an alternate sectionGoals may be documented in an alternate sectionGoals may be documented in an alternate sectionGoals may be documented in an alternate sectionGoals may be documented in an alternate sectionGoals may be documented in an alternate sectionGoals may be documented in an alternate sectionGoals may be documented in an alternate sectionGoals may be documented in an alternate sectionGoals may be documented in an alternate sectionGoals may be documented in an alternate sectionGoals may be documented in an alternate sectionGoals may be documented in an alternate sectionGoals may be documented in an alternate sectionGoals may be documented in an alternate sectionGoals may be documented in an alternate sectionGoals may be documented in an alternate sectionGoals may be documented in an alternate sectionGoals may be documented in an alternate sectionGoals may be documented in an alternate sectionGoals may be documented in an alternate sectionGoals may be documented in an alternate sectionGoals may be documented in an alternate sectionGoals may be documented in an alternate section Care Teams (unrecognized sec tion and content) Team Status: Active Member Role Status Dates Dr. Patricia Garcia DO Primary Care Provider Active Team Status: Active Member Role Status Dates Dr. Pantera Del Valle MD Attending Provider Active Start: November 26, 2024 Dr. Patricia Garcia DO Referring Provider Active St art: November 26, 2024 Team Status: Inactive Member Role Status Dates Dr. Patricia Garcia DO Primary Care Provider Active Start: December 07, 2024 End: December 07, 2024 Dr. Patricia Garcia DO Attending Provider Active St art: December 07, 2024 End: December 07, 2024 Dr. Patricia Garcia DO Referring Provider Active St art: December 07, 2024 End: December 07, 2024 Team Status: Inactive Member Role Status Dates Dr. Patricia Garcia DO Primary Care Provider Active Start: December 07, 2024 End: December 12, 2024 Dr. Jason Ash DO Emergency Provider Active Start: December 07, 2024 End: December 12, 2024 Dr. Inocencia Kruger DO Admit Provider Active Start : December 07, 2024 End: December 12, 2024 Dr. Inocencia Kruger DO Other Provider Active Start : December 07, 2024 End: December 12, 2024 Dr. Lenin Foss MD Other Provider Active Star t: December 07, 2024 End: December 12, 2024 Dr. Eliane Benson MD Attending Provider Active Start: December 07, 2024 End: December 12, 2024 Dr. Esme Rivera MD Other Provider Active St art: December 07, 2024 End: December 12, 2024 Dr. Wei Allison MD Other Provider Active Start : December 07, 2024 End: December 12, 2024 Dr. Lenin Blackburn MD Other Provider Active Start: December 07, 2024 End: December 12, 2024 Team Status: Active Member Role Status Dates Dr. Patricia Garcia DO Primary Care Provider Active Start: December 07, 2024 Dr. Jason Ash DO Emergency Provider Active Start: December 07, 2024 Dr. Inocencia Kruger DO Admit Provider Active Start : December 07, 2024 Dr. Inocencia Kruger DO Referring Provider Active S tart: December 07, 2024 Dr. Inocencia Kruger DO Other Provider Active Start : December 07, 2024 Dr. Lenin Foss MD Attending Provider Active Start: December 07, 2024 Dr. Lenin Foss MD Other Provider Active Star t: December 07, 2024 Team Status: Active Member Role Status Dates Dr. Patricia Garcia DO Primary Care Provider Active Start: December 08, 2024 Dr. Jason Ash DO Emergency Provider Active Start: December 08, 2024 Dr. Inocencia Kruger DO Admit Provider Active Start : December 08, 2024 Dr. Inocencia Kruger DO Other Provider Active Start : December 08, 2024 Dr. Lenin Foss MD Attending Provider Active Start: December 08, 2024 Dr. Lenin Foss MD Other Provider Active Star t: December 08, 2024 Dr. Esme Rivera MD Other Provider Active St art: December 08, 2024 Team Status: Active Member Role Status Dates Dr. Patricia Garcia DO Primary Care Provider Active Start: December 08, 2024 Dr. Jason Ash DO Emergency Provider Active Start: December 08, 2024 Dr. Inocencia Kruger DO Admit Provider Active Start : December 08, 2024 Dr. Inocencia Kruger DO Other Provider Active Start : December 08, 2024 Dr. Lenin Foss MD Other Provider Active Star t: December 08, 2024 Dr. Esme Rivera MD Attending Provider Active Start: December 08, 2024 Dr. Esme Rivera MD Other Provider Active St art: December 08, 2024 Team Status: Active Member Role Status Dates Dr. Patricia Garcia DO Primary Care Provider Active Start: December 09, 2024 Dr. Jason Ash DO Emergency Provider Active Start: December 09, 2024 Dr. Inocencia Kruger DO Admit Provider Active Start : December 09, 2024 Dr. Inocencia Kruger DO Other Provider Active Start : December 09, 2024 Dr. Lenin Foss MD Attending Provider Active Start: December 09, 2024 Dr. Lenin Foss MD Other Provider Active Star t: December 09, 2024 Dr. Esme Rivera MD Other Provider Active St art: December 09, 2024 Team Status: Active Member Role Status Dates Dr. Patricia Garcia DO Primary Care Provider Active Start: December 09, 2024 Dr. Jason Ash DO Emergency Provider Active Start: December 09, 2024 Dr. Inocencia Kruger DO Admit Provider Active Start : December 09, 2024 Dr. Inocencia Kruger DO Other Provider Active Start : December 09, 2024 Dr. Lenin Foss MD Other Provider Active Star t: December 09, 2024 Dr. Esme Rivera MD Attending Provider Active Start: December 09, 2024 Dr. Esme Rivera MD Other Provider Active St art: December 09, 2024 Team Status: Active Member Role Status Dates Dr. Patricia Gracia DO Primary Care Provider Active Start: December 10, 2024 Dr. Jason Ash DO Emergency Provider Active Start: December 10, 2024 Dr. Inocencia Kruger DO Admit Provider Active Start : December 10, 2024 Dr. Inocencia Kruger DO Other Provider Active Start : December 10, 2024 Dr. Lenin Foss MD Attending Provider Active Start: December 10, 2024 Dr. Lenin Foss MD Other Provider Active Star t: December 10, 2024 Dr. Eliane Benson MD Other Provider Active St art: December 10, 2024 Dr. Esme Rivera MD Other Provider Active St art: December 10, 2024 Dr. Wei Allison MD Other Provider Active Start : December 10, 2024 Team Status: Active Member Role Status Dates Dr. Patricia Garcia DO Primary Care Provider Active Start: December 10, 2024 Dr. Jason Ash DO Emergency Provider Active Start: December 10, 2024 Dr. Inocencia Kruger DO Admit Provider Active Start : December 10, 2024 Dr. Inocencia Kruger DO Other Provider Active Start : December 10, 2024 Dr. Lenin Foss MD Other Provider Active Star t: December 10, 2024 Dr. Eliane Benson MD Attending Provider Active Start: December 10, 2024 Dr. Eliane Benson MD Other Provider Active St art: December 10, 2024 Dr. Esme Rivera MD Other Provider Active St art: December 10, 2024 Dr. Wei Allison MD Other Provider Active Start : December 10, 2024 Team Status: Active Member Role Status Dates Dr. Patricia Gracia DO Primary Care Provider Active Start: December 10, 2024 Dr. Jason Ash DO Emergency Provider Active Start: December 10, 2024 Dr. Inocencia Kruger DO Admit Provider Active Start : December 10, 2024 Dr. Inocencia Kruger DO Other Provider Active Start : December 10, 2024 Dr. Lenin Foss MD Other Provider Active Star t: December 10, 2024 Dr. Eliane Benson MD Referring Provider Active Start: December 10, 2024 Dr. Eliane Benson MD Other Provider Active St art: December 10, 2024 Dr. Esme Rivera MD Other Provider Active St art: December 10, 2024 Dr. Wei Allison MD Attending Provider Active S tart: December 10, 2024 Dr. Wei Allison MD Other Provider Active Start : December 10, 2024 Team Status: Active Member Role Status Dates Dr. Patricia Garcia DO Primary Care Provider Active Start: December 11, 2024 Dr. Jason Ash DO Emergency Provider Active Start: December 11, 2024 Dr. Inocencia Kruger DO Admit Provider Active Start : December 11, 2024 Dr. Inocencia Kruger DO Other Provider Active Start : December 11, 2024 Dr. Lenin Foss MD Attending Provider Active Start: December 11, 2024 Dr. Lenin Foss MD Other Provider Active Star t: December 11, 2024 Dr. Eliane Benson MD Other Provider Active St art: December 11, 2024 Dr. Esme Rivera MD Other Provider Active St art: December 11, 2024 Dr. Wei Allison MD Other Provider Active Start : December 11, 2024 Team Status: Active Member Role Status Dates Dr. Patricia Garcia DO Primary Care Provider Active Start: December 11, 2024 Dr. Jason Ash DO Emergency Provider Active Start: December 11, 2024 Dr. Inocencia Kruger DO Admit Provider Active Start : December 11, 2024 Dr. Inocencia Kruger DO Other Provider Active Start : December 11, 2024 Dr. Lenin Foss MD Other Provider Active Star t: December 11, 2024 Dr. Eliane Benson MD Attending Provider Active Start: December 11, 2024 Dr. Eliane Benson MD Other Provider Active St art: December 11, 2024 Dr. Esme Rivera MD Other Provider Active St art: December 11, 2024 Dr. Wei Allison MD Other Provider Active Start : December 11, 2024 Dr. Lenin Blackburn MD Other Provider Active Start: December 11, 2024 Team Status: Active Member Role Status Dates Dr. Patricia Garcia DO Primary Care Provider Active Start: December 12, 2024 Dr. Jason Ash DO Emergency Provider Active Start: December 12, 2024 Dr. Inocencia Kruger DO Admit Provider Active Start : December 12, 2024 Dr. Inocencia Kruger DO Other Provider Active Start : December 12, 2024 Dr. Lenin Foss MD Other Provider Active Star t: December 12, 2024 Dr. Eliane Benson MD Referring Provider Active Start: December 12, 2024 Dr. Eliane Benson MD Other Provider Active St art: December 12, 2024 Dr. Esme Rivera MD Other Provider Active St art: December 12, 2024 Dr. Wei Allison MD Other Provider Active Start : December 12, 2024 Dr. Lenin Blackburn MD Other Provider Active Start: December 12, 2024 MARISSA Vivar Attending Provider Active Star t: December 12, 2024 Team Status: Active Member Role Status Dates Dr. Patricia Garcia DO Primary Care Provider Active Start: December 12, 2024 Dr. Jason Ash DO Emergency Provider Active Start: December 12, 2024 Dr. Inocencia Kruger DO Admit Provider Active Start : December 12, 2024 Dr. Inocencia Kruger DO Other Provider Active Start : December 12, 2024 Dr. Lenin Foss MD Other Provider Active Star t: December 12, 2024 Dr. Eliane Benson MD Attending Provider Active Start: December 12, 2024 Dr. Eliane Benson MD Other Provider Active St art: December 12, 2024 Dr. Esme Rivera MD Other Provider Active St art: December 12, 2024 Dr. Wei Allison MD Other Provider Active Start : December 12, 2024 Dr. Lenin Blackburn MD Other Provider Active Start: December 12, 2024 Team Status: Inactive Member Role Status Dates Dr. Patricia Garcia DO Primary Care Provider Active Start: December 21, 2024 End: December 21, 2024 Dr. Patricia Garcia DO Referring Provider Active St art: December 21, 2024 End: December 21, 2024 MARISSA Vivar Attending Provider Active Star t: December 21, 2024 End: December 21, 2024 Team Status: Active Member Role Status Dates Dr. Patricia Garcia DO Primary Care Provider Active Start: December 25, 2024 End: December 25, 2024 Dr. Nicola Devi MD Attending Provider Active S tart: December 25, 2024 End: December 25, 2024 Dr. Wei Allison MD Referring Provider Active S tart: December 25, 2024 End: December 25, 2024 Team Status: Inactive Member Role Status Dates Dr. Patricia Garcia DO Primary Care Provider Active Start: January 04, 2025 End: January 07, 2025 Dr. Patricia Garcia DO Attending Provider Active St art: January 04, 2025 End: January 07, 2025 Dr. Patricia Garcia DO Referring Provider Active St art: January 04, 2025 End: January 07, 2025 Team Status: Active Member Role Status Dates Dr. Patricia Garcia DO Primary Care Provider Active Start: January 07, 2025 Dr. Wei Allison MD Attending Provider Active S tart: January 07, 2025 Dr. Wei Allison MD Referring Provider Active S tart: January 07, 2025 Dr. Wei Allison MD Other Provider Active Start : January 07, 2025 Team Status: Inactive Member Role Status Dates Dr. Patricia Garcia DO Primary Care Provider Active Start: January 07, 2025 End: January 08, 2025 Dr. Wei Allison MD Admit Provider Active Start : January 07, 2025 End: January 08, 2025 Dr. Wei Allison MD Attending Provider Active S tart: January 07, 2025 End: January 08, 2025 Dr. Wei Allison MD Referring Provider Active S tart: January 07, 2025 End: January 08, 2025 Team Status: Active Member Role Status Dates Dr. Patricia Garcia DO Primary Care Provider Active Start: January 08, 2025 Dr. Wei Allison MD Admit Provider Active Start : January 08, 2025 Dr. Wei Allison MD Referring Provider Active S tart: January 08, 2025 Dr. Wei Allison MD Other Provider Active Start : January 08, 2025 MARISSA Vivar Attending Provider Active Star t: January 08, 2025 Team Status: Inactive Member Role Status Dates Dr. Patricia Garcia DO Primary Care Provider Active Start: January 29, 2025 End: January 29, 2025 Dr. Patricia Garcia DO Referring Provider Active St art: January 29, 2025 End: January 29, 2025 MARISSA Vivar Attending Provider Active Star t: January 29, 2025 End: January 29, 2025 Team Status: Inactive Member Role Status Dates Dr. Patricia Garcia DO Primary Care Provider Active Start: February 01, 2025 End: February 06, 2025 Dr. Patricia Garcia DO Attending Provider Active St art: February 01, 2025 End: February 06, 2025 Dr. Patricia Garcia DO Referring Provider Active St art: February 01, 2025 End: February 06, 2025 Team Status: Inactive Member Role Status Dates Dr. Patricia Garcia DO Primary Care Provider Active Start: February 18, 2025 End: February 18, 2025 MARISSA Vivar Attending Provider Active Star t: February 18, 2025 End: February 18, 2025 MARISSA Vivar Referring Provider Active Star t: February 18, 2025 End: February 18, 2025 Team Status: Active Member Role Status Dates Dr. Patricia Garcia DO Primary Care Provider Active Start: February 18, 2025 Dr. Wei Allison MD Attending Provider Active S tart: February 18, 2025 MARISSA Vivar Referring Provider Active Star t: February 18, 2025 Team Status: Inactive Member Role Status Dates Dr. Patricia Garcia DO Primary Care Provider Active Start: March 08, 2025 End: March 09, 2025 Dr. Patricia Garcia DO Attending Provider Active St art: March 08, 2025 End: March 09, 2025 Dr. Patricia Garcia DO Referring Provider Active St art: March 08, 2025 End: March 09, 2025 Team Status: Active Member Role Status Dates Dr. Patricia Garcia DO Family Provider Active Dr. Patricia Garcia DO Primary Care Provider Active Team Status: Active Member Role Status Dates Dr. Patricia Garcia DO Primary Care Provider Active Dr. Heydi Kim MD Attending Provi claus, Referring Provider, Other Provider Active Team Status: Inactive Member Role Status Dates Dr. Patricia Garcia DO Primary Care Provider Active Dr. Heydi Kim MD Attending Provider, Referring Provider Active Team Status: Inactive Member Role Status Dates Dr. Patricia Garcia DO Primary Care Provider, Attending P rovider Active Team Status: Active Member Role Status Dates Dr. Patricia Garcia DO Primary Care Provider, Attending P rovider Active Team Status: Active Member Role Status Dates Dr. Patricia Garcia DO Primary Care Provider Active Dr. Lenin Byers MD Attending Provider Active Team Status: Inactive Member Role Status Dates Dr. Patricia Garcia DO Primary Care Provider Active Dr. Ramos Stewart MD Emergency Provider Active Team Status: Active Member Role Status Dates Dr. Patricia Garcia DO Primary Care Provider Active Dr. Dasia White MD Emergency Provider Active Dr. Satya Erazo MD Attending Provider Active Team Status: Active Member Role Status Dates Dr. Patricia Garcia DO Primary Care Provider Active Dr. Dasia White MD Emergency Provider Active Dr. Satya Erazo MD Admit Provider, Attending Provi claus Active Team Status: Active Member Role Status Dates Dr. Patricia Garcia DO Primary Care Provider Active Dr. Philip Whittaker MD Attending Provider Active Team Status: Active Member Role Status Dates Dr. Patricia Garcia DO Primary Care Provider Active Dr. Dasia White MD Emergency Provider Active Dr. Satya Erazo MD Admit Provider, Other Provider Active Dr. Jason Carranza DPM Other Provider Active Dr. Wei Lucero DO Attending Provider, Other Provid er Active Team Status: Active Member Role Status Dates Dr. Patricia Garcia DO Primary Care Provider Active Dr. Wei Allison MD Attending Provider Active Team Status: Active Member Role Status Dates Dr. Patricia Garcia DO Primary Care Provider Active Dr. Dasia White MD Emergency Provider Active Dr. Satya rEazo MD Admit Provider, Other Provider Active Dr. Jason Carranza DPM Other Provider Active Dr. Wei Lucero DO Attending Provider Active Team Status: Active Member Role Status Dates Dr. Patricia Garcia DO Primary Care Provider Active Dr. Dasia White MD Emergency Provider Active Dr. Satya Erazo MD Admit Provider, Other Provider Active Dr. Mimi Cobb MD Attending Provider, Other Provid er Active Dr. Wei Lucero DO Other Provider Active Dr. Jason Carranza DPM Other Provider Active Team Status: Inactive Member Role Status Dates Dr. Patricia Garcia DO Primary Care Provider Active Dr. Ramos Stewart MD Attending Provider, Emergency Provi claus Active Team Status: Active Member Role Status Dates Dr. Patricia Garcia DO Primary Care Provider Active Dr. Dasia White MD Emergency Provider Active Dr. Satya Erazo MD Admit Provider, Other Provider Active Dr. Mimi Cobb MD Attending Provider Active Dr. Wei Lucero DO Other Provider Active Dr. Jason Carranza DPM Other Provider Active Team Status: Active Member Role Status Dates Dr. Patricia Garcia DO Primary Care Provider, Referring P ledy Active Dr. Lenin Byers MD Attending Provider Active Team Status: Inactive Member Role Status Dates Dr. Patricia Garcia DO Primary Care Provider Active Dr. Dasia White MD Emergency Provider Active Dr. Satya Erazo MD Admit Provider, Other Provider Active Dr. Mimi Cobb MD Attending Provider Active Dr. Wei Lucero DO Other Provider Active Dr. Jason Carranza DPM Other Provider Active Team Status: Active Member Role Status Dates Dr. Patricia Garcia DO Primary Care Provider Active Dr. Wei Allison MD Attending Provider Active Dr. Jason Carranza DPM Referring Provider Active Team Status: Active Member Role Status Dates Dr. Patricia Garcia DO Primary Care Provider Active Kevin MEJIA MD Attending Provider Active Team Status: Active Member Role Status Dates Dr. Patricia Garcia DO Primary Care Provider Active Dr. Wei Allison MD Attending Provider Active Dr. Mimi Cobb MD Referring Provider Active Team Status: Inactive Member Role Status Dates Dr. Patricia Garcia DO Primary Care Provide r, Attending Provider, Referring Provider Active Team Status: Active Member Role Status Dates Dr. Patricia Garcia DO Primary Care Provide r, Attending Provider, Referring Provider Active Team Status: Inactive Member Role Status Dates Dr. Patricia Garcia DO Primary Care Provider Active Start: September 26, 2024 End: September 26, 2024 Dr. Patricia Garcia DO Attending Provider Active St art: September 26, 2024 End: September 26, 2024 Dr. Patricia Garcia DO Referring Provider Active St art: September 26, 2024 End: September 26, 2024 Team Status: Inactive Member Role Status Dates Dr. Patricia Garcia DO Primary Care Provider Active Start: September 27, 2024 End: September 27, 2024 Dr. Patricia Garcia DO Attending Provider Active St art: September 27, 2024 End: September 27, 2024 Dr. Patricia Garcia DO Referring Provider Active St art: September 27, 2024 End: September 27, 2024 Team Status: Inactive Member Role Status Dates Dr. Patricia Garcia DO Primary Care Provider Active Start: October 05, 2024 End: October 09, 2024 Dr. Patricia Garcia DO Attending Provider Active St art: October 05, 2024 End: October 09, 2024 Dr. Patricia Garcia DO Referring Provider Active St art: October 05, 2024 End: October 09, 2024 Team Status: Inactive Member Role Status Dates Dr. Patricia Garcia DO Primary Care Provider Active Start: October 24, 2024 End: October 24, 2024 Dr. Patricia Garcia DO Attending Provider Active St art: October 24, 2024 End: October 24, 2024 Dr. Patricia Garcia DO Referring Provider Active St art: October 24, 2024 End: October 24, 2024 Team Status: Inactive Member Role Status Dates Dr. Patricia Garcia DO Primary Care Provider Active Start: November 09, 2024 End: November 09, 2024 Dr. Patricia Garcia DO Attending Provider Active St art: November 09, 2024 End: November 09, 2024 Dr. Patricia Garcia DO Referring Provider Active St art: November 09, 2024 End: November 09, 2024 Team Status: Active Member Role Status Dates Dr. Patricia Garcia DO Primary Care Provider Active Start: January 07, 2025 Dr. Wei Allison MD Admit Provider Active Start : January 07, 2025 Dr. Wei Allison MD Attending Provider Active S tart: January 07, 2025 Dr. Wei Allison MD Referring Provider Active S tart: January 07, 2025 Team Status: Active Member Role Status Dates Dr. Patricia Garcia DO Primary Care Provider Active Start: February 18, 2025 Dr. Wei Allison MD Attending Provider Active S tart: February 18, 2025 Team Status: Active Member Role Status Dates Dr. Patricia Garcia DO Primary Care Provider Active Start: February 22, 2025 Dr. Patricia Garcia DO Attending Provider Active St art: February 22, 2025 Dr. Patricia Garcia DO Referring Provider Active St art: February 22, 2025 Team Status: Active Member Role/Relationship Status Dates Dr. Patricia Garcia DO Primary Care Provider Active Team Status: Inactive Member Role/Relationship Status Dates Dr. Patricia Garcia DO Primary Care Provider Active Start: December 07, 2024 End: December 12, 2024 Dr. Jason Ash DO Emergency Provider Active Start: December 07, 2024 End: December 12, 2024 Dr. Inocencia Kruger DO Admit Provider Active Start : December 07, 2024 End: December 12, 2024 Dr. Inocencia Kruger DO Other Provider Active Start : December 07, 2024 End: December 12, 2024 Dr. Lenin Foss MD Other Provider Active Star t: December 07, 2024 End: December 12, 2024 Dr. Eliane Benson MD Attending Provider Active Start: December 07, 2024 End: December 12, 2024 Dr. Esme Rivera MD Other Provider Active St art: December 07, 2024 End: December 12, 2024 Dr. Wei Allison MD Other Provider Active Start : December 07, 2024 End: December 12, 2024 Dr. Lenin Blackburn MD Other Provider Active Start: December 07, 2024 End: December 12, 2024 Team Status: Active Member Role/Relationship Status Dates Dr. Patricia Garcia DO Primary Care Provider Active Start: December 10, 2024 Dr. Jason Ash DO Emergency Provider Active Start: December 10, 2024 Dr. Inocencia Kruger DO Admit Provider Active Start : December 10, 2024 Dr. Inocencia Kruger DO Other Provider Active Start : December 10, 2024 Dr. Lenin Foss MD Attending Provider Active Start: December 10, 2024 Dr. Lenin Foss MD Other Provider Active Star t: December 10, 2024 Dr. Eliane Benson MD Other Provider Active St art: December 10, 2024 Dr. Esme Rivera MD Other Provider Active St art: December 10, 2024 Dr. Wei Allison MD Other Provider Active Start : December 10, 2024 Team Status: Active Member Role/Relationship Status Dates Dr. Patricia Garcia DO Primary Care Provider Active Start: December 10, 2024 Dr. Jason Ash DO Emergency Provider Active Start: December 10, 2024 Dr. Inocencia Kruger DO Admit Provider Active Start : December 10, 2024 Dr. Inocencia Kruger DO Other Provider Active Start : December 10, 2024 Dr. Lenin Foss MD Other Provider Active Star t: December 10, 2024 Dr. Eliane Benson MD Attending Provider Active Start: December 10, 2024 Dr. Eliane Benson MD Other Provider Active St art: December 10, 2024 Dr. Esme Rivera MD Other Provider Active St art: December 10, 2024 Dr. Wei Allison MD Other Provider Active Start : December 10, 2024 Team Status: Active Member Role/Relationship Status Dates Dr. Patricia Garcia DO Primary Care Provider Active Start: December 10, 2024 Dr. Jason Ash DO Emergency Provider Active Start: December 10, 2024 Dr. Inocencia Kruger DO Admit Provider Active Start : December 10, 2024 Dr. Inocencia Kruger DO Other Provider Active Start : December 10, 2024 Dr. Lenin Foss MD Other Provider Active Star t: December 10, 2024 Dr. Eliane Benson MD Referring Provider Active Start: December 10, 2024 Dr. Eliane Benson MD Other Provider Active St art: December 10, 2024 Dr. Esme Rivera MD Other Provider Active St art: December 10, 2024 Dr. Wei Allison MD Attending Provider Active S tart: December 10, 2024 Dr. Wei Allison MD Other Provider Active Start : December 10, 2024 Team Status: Active Member Role/Relationship Status Dates Dr. Patricia Garcia DO Primary Care Provider Active Start: December 11, 2024 Dr. Jason Ash DO Emergency Provider Active Start: December 11, 2024 Dr. Inocencia Kruger DO Admit Provider Active Start : December 11, 2024 Dr. Inocencia Kruger DO Other Provider Active Start : December 11, 2024 Dr. Lenin Foss MD Attending Provider Active Start: December 11, 2024 Dr. Lenin Foss MD Other Provider Active Star t: December 11, 2024 Dr. Eliane Benson MD Other Provider Active St art: December 11, 2024 Dr. Esme Rivera MD Other Provider Active St art: December 11, 2024 Dr. Wei Allison MD Other Provider Active Start : December 11, 2024 Team Status: Active Member Role/Relationship Status Dates Dr. Patricia Garcia DO Primary Care Provider Active Start: December 11, 2024 Dr. Jason Ash DO Emergency Provider Active Start: December 11, 2024 Dr. Inocencia Kruger DO Admit Provider Active Start : December 11, 2024 Dr. Inocencia Kruger DO Other Provider Active Start : December 11, 2024 Dr. Lenin Foss MD Other Provider Active Star t: December 11, 2024 Dr. Eliane Bneson MD Attending Provider Active Start: December 11, 2024 Dr. Eliane Benson MD Other Provider Active St art: December 11, 2024 Dr. Esme Rivera MD Other Provider Active St art: December 11, 2024 Dr. Wei Allison MD Other Provider Active Start : December 11, 2024 Dr. Lenin Blackburn MD Other Provider Active Start: December 11, 2024 Team Status: Active Member Role/Relationship Status Dates Dr. Patricia Garcia DO Primary Care Provider Active Start: December 12, 2024 Dr. Jason Ash DO Emergency Provider Active Start: December 12, 2024 Dr. Inocencia Kruger DO Admit Provider Active Start : December 12, 2024 Dr. Inocencia Kruger DO Other Provider Active Start : December 12, 2024 Dr. Lenin Foss MD Other Provider Active Star t: December 12, 2024 Dr. Eliane Benson MD Referring Provider Active Start: December 12, 2024 Dr. Eliane Benson MD Other Provider Active St art: December 12, 2024 Dr. Esme Rivera MD Other Provider Active St art: December 12, 2024 Dr. Wei Allison MD Other Provider Active Start : December 12, 2024 Dr. Lenin Blackburn MD Other Provider Active Start: December 12, 2024 MARISSA Vivar Attending Provider Active Star t: December 12, 2024 Team Status: Active Member Role/Relationship Status Dates Dr. Patricia Garcia DO Primary Care Provider Active Start: December 12, 2024 Dr. Jason Ash DO Emergency Provider Active Start: December 12, 2024 Dr. Inocencia Kruger DO Admit Provider Active Start : December 12, 2024 Dr. Inocencia Kruger DO Other Provider Active Start : December 12, 2024 Dr. Lenin Foss MD Other Provider Active Star t: December 12, 2024 Dr. Eliane Benson MD Attending Provider Active Start: December 12, 2024 Dr. Eliane Benson MD Other Provider Active St art: December 12, 2024 Dr. Esme Rivera MD Other Provider Active St art: December 12, 2024 Dr. Wei Allison MD Other Provider Active Start : December 12, 2024 Dr. Lenin Blackburn MD Other Provider Active Start: December 12, 2024 Team Status: Inactive Member Role/Relationship Status Dates Dr. Patricia Garcia DO Primary Care Provider Active Start: December 21, 2024 End: December 21, 2024 Dr. Patricia Garcia DO Referring Provider Active St art: December 21, 2024 End: December 21, 2024 MARISSA Vivar Attending Provider Active Star t: December 21, 2024 End: December 21, 2024 Team Status: Active Member Role/Relationship Status Dates Dr. Patricia Garcia DO Primary Care Provider Active Start: December 25, 2024 End: December 25, 2024 Dr. Nicola Devi MD Attending Provider Active S tart: December 25, 2024 End: December 25, 2024 Dr. Wei Allison MD Referring Provider Active S tart: December 25, 2024 End: December 25, 2024 Team Status: Inactive Member Role/Relationship Status Dates Dr. Patricia Garcia DO Primary Care Provider Active Start: January 04, 2025 End: January 07, 2025 Dr. Patricia Garcia DO Attending Provider Active St art: January 04, 2025 End: January 07, 2025 Dr. Patricia Garcia DO Referring Provider Active St art: January 04, 2025 End: January 07, 2025 Team Status: Active Member Role/Relationship Status Dates Dr. Patricia Garcia DO Primary Care Provider Active Start: January 07, 2025 Dr. Wei Allison MD Attending Provider Active S tart: January 07, 2025 Dr. Wei Allison MD Referring Provider Active S tart: January 07, 2025 Dr. Wei Allison MD Other Provider Active Start : January 07, 2025 Team Status: Inactive Member Role/Relationship Status Dates Dr. Patricia Garcia DO Primary Care Provider Active Start: January 07, 2025 End: January 08, 2025 Dr. Wei Allison MD Admit Provider Active Start : January 07, 2025 End: January 08, 2025 Dr. Wei Allison MD Attending Provider Active S tart: January 07, 2025 End: January 08, 2025 Dr. Wei Allison MD Referring Provider Active S tart: January 07, 2025 End: January 08, 2025 Team Status: Active Member Role/Relationship Status Dates Dr. Patricia Garcia DO Primary Care Provider Active Start: January 08, 2025 Dr. Wei Allison MD Admit Provider Active Start : January 08, 2025 Dr. Wei Allison MD Referring Provider Active S tart: January 08, 2025 Dr. Wei Allison MD Other Provider Active Start : January 08, 2025 MARISSA Vivar Attending Provider Active Star t: January 08, 2025 Team Status: Inactive Member Role/Relationship Status Dates Dr. Patricia Garcia DO Primary Care Provider Active Start: January 29, 2025 End: January 29, 2025 Dr. Patricia Malys , DO Referring Provider Active St art: January 29, 2025 End: January 29, 2025 MARISSA Vivar Attending Provider Active Star t: January 29, 2025 End: January 29, 2025 Team Status: Inactive Member Role/Relationship Status Dates Dr. Patricia Garcia DO Primary Care Provider Active Start: February 01, 2025 End: February 06, 2025 Dr. Patricia Garcia DO Attending Provider Active St art: February 01, 2025 End: February 06, 2025 Dr. Patricia Garcia DO Referring Provider Active St art: February 01, 2025 End: February 06, 2025 Team Status: Inactive Member Role/Relationship Status Dates Dr. Patricia Garcia DO Primary Care Provider Active Start: February 18, 2025 End: February 18, 2025 MARISSA Vivar Attending Provider Active Star t: February 18, 2025 End: February 18, 2025 MARISSA Vivar Referring Provider Active Star t: February 18, 2025 End: February 18, 2025 Team Status: Active Member Role/Relationship Status Dates Dr. Patricia Garcia DO Primary Care Provider Active Start: February 18, 2025 Dr. Wei Allison MD Attending Provider Active S tart: February 18, 2025 MARISSA Vivar Referring Provider Active Star t: February 18, 2025 Team Status: Inactive Member Role/Relationship Status Dates Dr. Patricia Garcia DO Primary Care Provider Active Start: March 08, 2025 End: March 09, 2025 Dr. Patricia Garcia DO Attending Provider Active St art: March 08, 2025 End: March 09, 2025 Dr. Patricia Garcia DO Referring Provider Active St art: March 08, 2025 End: March 09, 2025 Team Status: Inactive Member Role/Relationship Status Dates Dr. Patricia Garcia DO Primary Care Provider Active Start: April 05, 2025 End: April 08, 2025 Dr. Patricia Garcia DO Attending Provider Active St art: April 05, 2025 End: April 08, 2025 Dr. Patricia Garcia DO Referring Provider Active St art: April 05, 2025 End: April 08, 2025 Team Status: Inactive Member Role/Relationship Status Dates Dr. Patricia Garcia DO Primary Care Provider Active Start: January 29, 2025 End: January 29, 2025 Dr. Patricia Garcia DO Referring Provider Active St art: January 29, 2025 End: January 29, 2025 MARISSA Vivar Attending Provider Active Star t: January 29, 2025 End: January 29, 2025 Team Status: Inactive Member Role/Relationship Status Dates Dr. Patricia Garcia DO Primary Care Provider Active Start: February 01, 2025 End: February 06, 2025 Dr. Patricia Garcia DO Attending Provider Active St art: February 01, 2025 End: February 06, 2025 Dr. Patricia Garcia DO Referring Provider Active St art: February 01, 2025 End: February 06, 2025 Team Status: Inactive Member Role/Relationship Status Dates Dr. Patricia Garcia DO Primary Care Provider Active Start: February 18, 2025 End: February 18, 2025 MARISSA Vivar Attending Provider Active Star t: February 18, 2025 End: February 18, 2025 MARISSA Vivar Referring Provider Active Star t: February 18, 2025 End: February 18, 2025 Team Status: Active Member Role/Relationship Status Dates Dr. Patricia Garcia DO Primary Care Provider Active Start: February 18, 2025 Dr. Wei Allison MD Attending Provider Active S tart: February 18, 2025 MARISSA Vivar Referring Provider Active Star t: February 18, 2025 Team Status: Inactive Member Role/Relationship Status Dates Dr. Patricia Garcia DO Primary Care Provider Active Start: March 08, 2025 End: March 09, 2025 Dr. Patricia Garcia DO Attending Provider Active St art: March 08, 2025 End: March 09, 2025 Dr. Patricia Garcia DO Referring Provider Active St art: March 08, 2025 End: March 09, 2025 Team Status: Inactive Member Role/Relationship Status Dates Dr. Patricia Garcia DO Primary Care Provider Active Start: April 05, 2025 End: April 08, 2025 Dr. Patricia Garcia DO Attending Provider Active St art: April 05, 2025 End: April 08, 2025 Dr. Patricia Garcia DO Referring Provider Active St art: April 05, 2025 End: April 08, 2025 Team Status: Inactive Member Role/Relationship Status Dates Dr. Patricia Garcia DO Primary Care Provider Active Start: May 03, 2025 End: May 09, 2025 Dr. Patricia Garcia DO Attending Provider Active St art: May 03, 2025 End: May 09, 2025 Dr. Patricia Garcia DO Referring Provider Active St art: May 03, 2025 End: May 09, 2025 FOR RECORDS PERTAINING TO PATIENTS WHO ARE OR HAVE BEEN ENROLLED IN A CHEMICAL DEPENDENCY/SUBSTANCEABUSE PROGRAM, SOME INFORMATION MAY BE OMITTED. This clinical summary was aggregated from multiple sources. Caution should be exercised in using it in the provision of clinical care. This summary normalizes information from multiple sources, and as a consequence, information in this document may materially change the coding, format and clinical context of patient data. In addition, data may be omitted in some cases. CLINICAL DECISIONS SHOULD BE BASED ON THE PRIMARY CLINICAL RECORDS. [facility] [employer] [facility]. provides no warranty or guarantee of the accuracy or completeness of information in this document.
== END 2025-05-13 23:59 | disposition home or self-care (01) ==
LOC: MTLAB 16:19
PROVIDERS: PCP Family Medicine; Referring Provider Family Medicine; Visit Provider Family Medicine
DX: I83.028 Varicose veins of left lower extremity with ulcer other part of lower leg (principal)
CPT/HCPCS: 36415; 85610

== ENCOUNTER → 2025-05-14 | Outpatient (CLI) | payer MEDICARE, OTHER, SELFPAY ==
--- NOTE | 2025-05-14 12:11 | EKG12_ITS ---
Test Reason : ARRTHYMIA Blood Pressure : */* mmHG Vent. Rate : 68 BPM Atrial Rate : 68 BPM P-R Int : 188 ms QRS Dur : 118 ms QT Int : 398 ms P-R-T Axes : 49 22 73 degrees QTcB Int : 423 ms Normal sinus rhythm Non-specific intra-ventricular conduction delay Borderline ECG Confirmed by SAVITA RANDHAWA, ALLYSON ([id number]), continuity editor MICAELA DÍAZ ([id number]) on 05/15/2025 6:48:47 AM Referred By: Patricia Garcia Confirmed By: ALLYSON BARNEY MD
== END | disposition home or self-care (01) ==
LOC: PSN 12:10
PROVIDERS: PCP Family Medicine; Referring Provider Family Medicine; Visit Provider Family Medicine
DX: I49.9 Cardiac arrhythmia, unspecified (principal)
CPT/HCPCS: 93005

== ENCOUNTER 2025-05-31 11:30 | Outpatient (RCR) | payer MEDICARE, OTHER, SELFPAY ==
[2025-05-10 11:52] VITALS: BP 139/82; PULSE 57; RESP 16; TEMP 36.3
--- NOTE | 2025-05-10 14:46 | PCM.WC.PN ---
History of Present Illness Date of Service: 05/10/25 Chief Complaint: venous ulcers of left lower extremity History of Wound: Mauricio is a 69 yo gentleman who is here today for evaluation of ulcers to to his bilateral lower legs. He has been treated multiple times in the past at the wound healing center for similar ulcers. The left LE ulcer started after he developed increased swelling and blisters of left leg in October and the right leg started sometime at the end of October. He was seen at PCP's office a culture was taken and it was resistant to several antibiotics. He was treated initially with Levaquin but had myalgias and then was treated with doxycycline which he finished 2 days ago. He denies improvement and is having swelling to his left calf and thigh. He has been having swelling to both lower extremities for many years and it has worsened over the last few months. He has not been compliant with compression. He has had increased pain especially in the left leg. He has clear yellow drainage and redness without odor or warmth. He is anti-coagulated on coumadin. He has been washing with Dial soap and witch ifrah. He had been using Collagen at times and using Calcium Alginate and covering with ABD pads during October. He was treated with 3M compression and Aquacel Ag. He was referred to the wound center for ongoing treatment. His ulcers have moderate to heavy drainage. He was in the hospital from 11/30/22 until 12/09/22 for treatment of cellulitis and edema. He underwent treatment with Vancomycin and IV lasix and compression. Discharged on 12/09/22. He returned to his assisted living apartment on Tuesday12/21/22. Wound culture from 12/07/24 was positive for Providencia stuartii, Vancomycin resistant E. Faecalis, Corynebacterium striatum and completed Augmentin orally. His edema is better this week and he is tolerating Circaid compression. 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 He continues to use his lymphedema pumps but continues to have pain with use of these pumps. 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 Subjective Subjective Mauricio is a 69-year-old male with longstanding history of chronic venous ulceration to the left lower extremity and a right lower extremity venous ulcer that is nearly circumferential. There has been minimal improvement over the last week. His edema is worse. He is more compliant with elevation but still is not compliant with compression pump frequency due to pain with use of pumps. Wound culture from 12/07/24 was positive for Providencia stuartii, Vancomycin resistant E. Faecalis, Corynebacterium striatum and completed Augmentin orally. His edema is better this week and he is tolerating Circaid compression. 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 He continues to use his lymphedema pumps but continues to have pain with use of these pumps. 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 Objective Data Objective Data Vital Signs: Vital Signs Temp Pulse Resp BP 97.4 F L 57 L 16 139/82 H 05/10/25 11:52 05/10/25 11:52 05/10/25 11:52 05/10/25 11:52 Physical Exam Const alert, oriented x3 and no apparent distress General Appearance: cooperative and comfortable HEENT normocephalic and head/scalp atraumatic Lymph Lymphatic: lymphedema moderate Resp normal respiratory effort Effort and Inspection: able to speak in complete sentences Cardio regular rate and regular rhythm Extremity Extremity Narrative: His ulcers are painful and the right lower leg remains more swollen than his left but there is good granulation tissue throughout and slough that is nearly completely removed post - debridement, edges of ulcers are beveled without rolled borders General Extremity: edema bilateral lower extremity Details: severe Skin General Skin Exam: venous stasis and dermatitis Wounds: wounds noted Wound Narrative: as in clinical panel, + devitalized tissue, there is increased depth, + granulation tissue bilateral ulcer with good granulation and moderate slough prior to debridement and minimal post debridement Psych mental status grossly normal, thought process normal, cooperative and affect normal Debridement Note Debridement Note Wound debrided: left medial LE ulcer Laterality: Left Type of Debridement: Excisional debridement Anesthesia Used: 5% Lidocaine Gel and Cetacaine Depth: Down to and including healthy tissue and in the subcutaneous layer Percentage of wound debrided: 100 Instrument Used: - (Misonix ultrasonic debridement) Tissue Removed: Yellow slough, devitalized tissue Severity: Fat Layer Exposed Amount of bleeding with debridement: Mild Bleeding Controlled with: Compression and gauze Patient tolerated procedure: Patient tolerated procedure well Post-Debridement Measurements and Additional Note: Post-Debridement Measurements/Treatment - Nurse 1 - General Ulcer Assessment Start: 05/10/25 11:52 Freq: Status: Active Protocol: ONDINA Activity Type Activity Date Activity User E-sign Co-sign Detail Recorded Client Recorded Date Recorded By Document 05/10/25 11:52 [id number] 05/10/25 12:11 05/10/25 11:52 - Today's Visit Information Type of service Follow-up Visit (Physician/YOUTH TE[employer]ER ) Arrival Mode Ambulatory, Walker Patient Identification Verified (Name & Yes ) Patient Requires Transmission-Based No Precautions Vital Signs Temperature (97.8 F-99.1 F) 97.4 F L Temperature Source Temporal Pulse Rate (60-100) 57 L Pulse Location Monitor Respiratory Rate (12-18) 16 Respiratory rate source Observation Blood Pressure (90/60-120/80) 139/82 H Blood Pressure Mean (mm Hg) 101 Source Monitor Position Semi-Fowlers Blood Pressure Location Right Arm History Since Last Visit- (Skip if this is Patient's initial visit) Have you changed medications since your No last visit? Any new allergies or adverse reactions No Had a fall/change in ADL's that may No increase risk of falls Signs or symptoms of abuse and/or No neglect since last visit Have you been in the hospital since your No last visit? Has dressing in place as prescribed Yes Has compression in place as prescribed Yes Has offloadiing in place as prescribed N/A Experienced any changes in pain level or No management Left Footwear Regular Shoe Right Footwear Regular Shoe Pain Scale: 0-10 Numeric Is Patient Pain Free? Yes - Nurse 1 - General Ulcer Measurement Start: 05/10/25 11:52 Freq: Status: Active Protocol: Activity Type Activity Date Activity User E-sign Co-sign Detail Recorded Client Recorded Date Recorded By Document 05/10/25 11:52 [id number] 05/10/25 12:11 05/10/25 11:52 Wound Center Nurse 1 #24 Left Lateral Leg -Current Size (cm) - Length 0.3 -Current Size (cm) - Width 0.3 -Current Size (cm) - Depth 0.1 -Total Square Cm 0.09 -Wound Margin Flat & Intact -Granulation Amt Large (67-100%) -Granulation Quality [place] -Necrosis Amt None Present (0 %) -Structure Exposed N/A -Texture (Marie-wound Skin Appearance) Friable -Moisture (Marie-wound Skin Appearance) No Abnormality -Color (Marie-wound Skin Appearance) No Abnormality -Temperature (Marie-wound Skin No Abnormality Appearance) (Pt Warm) -Tenderness on Palpation (Marie-wound No Skin Appearance) -Ulcer Cleansing Soap and Water -Anesthetic Used 5% Lidocaine Gel #22 R Medial/Lateral leg -Current Size (cm) - Length 9 -Current Size (cm) - Width 30 -Current Size (cm) - Depth 0.2 -Total Square Cm 270 -Exudate Amt Medium -Exudate Type Serous -Wound Margin Flat & Intact -Granulation Amt Large (67-100%) -Granulation Quality [place] -Necrosis Amt Small (1-33%) -Necrotic Tissue Type Adherent Slough -Structure Exposed N/A -Texture (Marie-wound Skin Appearance) No Abnormality -Moisture (Marie-wound Skin Appearance) No Abnormality -Color (Marie-wound Skin Appearance) Erythema -Temperature (Marie-wound Skin No Abnormality Appearance) (Pt Warm) -Tenderness on Palpation (Marie-wound No Skin Appearance) -Ulcer Cleansing Soap and Water -Foul Odor after Cleansing No -Anesthetic Used 5% Lidocaine Gel #18 Left medial LE cluster -Current Size (cm) - Length 7.5 -Current Size (cm) - Width 13.2 -Current Size (cm) - Depth 0.2 -Total Square Cm 99.00 -Exudate Amt Medium -Exudate Type Serous -Wound Margin Flat & Intact -Granulation Amt Large (67-100%) -Granulation Quality [place] -Slough/Fibrin Yes -Necrosis Amt Small (1-33%) -Necrotic Tissue Type Adherent Slough -Structure Exposed N/A -Texture (Marie-wound Skin Appearance) No Abnormality -Moisture (Marie-wound Skin Appearance) No Abnormality -Color (Marie-wound Skin Appearance) Erythema -Temperature (Marie-wound Skin No Abnormality Appearance) (Pt Warm) -Ulcer Cleansing Soap and Water -Foul Odor after Cleansing No -Anesthetic Used 5% Lidocaine Gel Right Calf (cm) 31.8 Right Ankle (cm) 47.3 Left Calf (cm) 45 Left Ankle (cm) 31 - Nurse 2 - General Ulcer CM Notes Start: 05/10/25 11:52 Freq: Status: Active Protocol: Activity Type Activity Date Activity User E-sign Co-sign Detail Recorded Client Recorded Date Recorded By Document 05/10/25 12:36 [id number] 05/10/25 12:46 05/10/25 12:36 Wound Center Nurse 2 #24 Left Lateral Leg -Time 12:36 -Correct Patient Yes -Correct Side, Site, Position Yes -Correct Procedure Yes -Procedure Performed Yes -Type of Procedure Debridement -Clinical Debridement Subcutaneous -Tissue Removed Subcutaneous -Post Debridement (cm) - Length 0.8 -Post Debridement (cm) - Width 0.2 -Post Debridement (cm) - Depth 0.1 -Total Square (Post) (cm) 0.16 -Area of Debridement (cm) - Length 0.8 -Area of Debridement (cm) - Width 0.2 -Total Square (Area) (cm) 0.16 -Tunneling No -Undermining/Tunneling No -Circular Undermining No -Wound/Ulcer Outcome Not Healed -Ulcer Cleansing Rinsed/ Irrigated with Saline -Foul Odor after Cleansing No -Bioengineered Tissue No -Bleeding Controlled with Pressure -Treatment Response Procedure Tolerated Well -Offloading No -Debridement - Subq, 1st 20sq cm No #22 R Medial/Lateral leg -Time 12:38 -Correct Patient Yes -Correct Side, Site, Position Yes -Correct Procedure Yes -Procedure Performed Yes -Type of Procedure Debridement -Clinical Debridement Subcutaneous -Tissue Removed Subcutaneous -Post Debridement (cm) - Length 10.2 -Post Debridement (cm) - Width 28.8 -Post Debridement (cm) - Depth 0.1 -Total Square (Post) (cm) 293.76 -Area of Debridement (cm) - Length 10.2 -Area of Debridement (cm) - Width 28.8 -Total Square (Area) (cm) 293.76 -Tunneling No -Undermining/Tunneling No -Circular Undermining No -Wound/Ulcer Outcome Not Healed -Ulcer Cleansing Rinsed/ Irrigated with Saline -Foul Odor after Cleansing No -Bioengineered Tissue No -Bleeding Controlled with Pressure -Treatment Response Procedure Tolerated Well -Offloading No -Debridement - Subq, 1st 20sq cm No #18 Left medial LE cluster -Time 12:39 -Correct Patient Yes -Correct Side, Site, Position Yes -Correct Procedure Yes -Procedure Performed Yes -Type of Procedure Debridement -Clinical Debridement Subcutaneous -Tissue Removed Subcutaneous -Post Debridement (cm) - Length 7.8 -Post Debridement (cm) - Width 12.8 -Post Debridement (cm) - Depth 0.1 -Total Square (Post) (cm) 99.84 -Area of Debridement (cm) - Length 7.8 -Area of Debridement (cm) - Width 12.8 -Total Square (Area) (cm) 99.84 -Tunneling No -Undermining/Tunneling No -Circular Undermining No -Wound/Ulcer Outcome Not Healed -Ulcer Cleansing Rinsed/ Irrigated with Saline -Foul Odor after Cleansing No -Bioengineered Tissue No -Bleeding Controlled with Pressure -Treatment Response Procedure Tolerated Well -Offloading No -Debridement - Subq, 1st 20sq cm Yes -Debridement, SubQ, ea addt'l 20sq cm 19 or part thereof Pain Scale: 0-10 Numeric Is Patient Pain Free? Yes - Nurse 3 - General Ulcer D/C NN Start: 05/10/25 11:52 Freq: Status: Active Protocol: Activity Type Activity Date Activity User E-sign Co-sign Detail Recorded Client Recorded Date Recorded By Document 05/10/25 12:52 ALEX [id number] 05/10/25 12:54 ALEX 05/10/25 12:52 Wound Care Center Nurse 3 #24 Left Lateral Leg -Primary Dressing Applied Optilok 5x5 1/2 -Primary Dressing Covered/Secured with Dry Gauze & Roll Gauze, Secured with Tape -Optilok 5x5 1/2 1 #22 R Medial/Lateral leg -Primary Dressing Applied Optilok 5x5 1/2 -Optilok 5x5 1/2 1 #18 Left medial LE cluster -Primary Dressing Applied Optilok 5x5 1/2 -Primary Dressing Covered/Secured with Dry Gauze & Roll Gauze, Secured with Tape -Optilok 5x5 1/2 2 BLE -Other circaids Pain Scale: 0-10 Numeric Is Patient Pain Free? Yes - Visit Discharge Discharge Condition Stable Ambulatory Status Ambulatory, Walker Transportation Private Auto Medication Reconcilliation completed & No provided to patient/care provider Clinical Summary of Care Provided Yes Additional Wound Wound debrided: left lateral leg Laterality: Left Type of Debridement: Excisional debridement Anesthesia Used: 5% Lidocaine Gel and Cetacaine Depth: Down to and including healthy tissue and in the subcutaneous layer Percentage of wound debrided: 100 Instrument Used: - (Misonix ultrasonic debridement) Tissue Removed: Yellow slough, devitalized tissue Severity: Fat Layer Exposed Amount of bleeding with debridement: Mild Bleeding Controlled with: Compression and gauze Patient tolerated procedure: Patient tolerated procedure well Additional Wound Wound debrided: right medial leg Laterality: Right Type of Debridement: Excisional debridement Anesthesia Used: 5% Lidocaine Gel and Cetacaine Depth: Down to and including healthy tissue and in the subcutaneous layer Percentage of wound debrided: 100 Instrument Used: - (Misonix ultrasonic debridement) Tissue Removed: Yellow slough, devitalized tissue Severity: Fat Layer Exposed Amount of bleeding with debridement: Mild Bleeding Controlled with: Compression and gauze Patient tolerated procedure: Patient tolerated procedure well Assessment/Plan Assessment/Plan (1) Lymphedema: CODE(S): I89.0 - Lymphedema, not elsewhere classified (2) Hypertension: CODE(S): I10 - Essential (primary) hypertension QUALIFIERS: Hypertension type: primary hypertension Qualified Code(s): I10 - Essential (primary) hypertension (3) Hyperlipidemia: CODE(S): E78.5 - Hyperlipidemia, unspecified QUALIFIERS: Hyperlipidemia type: mixed hyperlipidemia Qualified Code(s): E78.2 - Mixed hyperlipidemia (4) History of DVT (deep vein thrombosis): CODE(S): Z86.718 - Personal history of other venous thrombosis and embolism (5) Venous insufficiency (chronic) (peripheral): CODE(S): I87.2 - Venous insufficiency (chronic) (peripheral) (6) Venous ulcer of left lower extremity with varicose veins: CODE(S): I83.029 - Varicose veins of left lower extremity with ulcer of unspecified site (7) Edema: CODE(S): R60.9 - Edema, unspecified QUALIFIERS: Edema type: unspecified Qualified Code(s): R60.9 - Edema, unspecified (8) 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 At home wound-care instructions: Will use Circaid compression garments with super absorber and kerlix to right LE and left LE changed every day. Due to his chronic lymphedema and being unable to don traditional compression stockings and the presence of venous ulcers on his LE b/l, it is medically necessary for him to have Circaid compression garments. He is using Circaid compression to both legs. I suspect he is not very compliant with his lymphedema pumps and not getting adequate compression with tubigrips and Circaids. Due to the delayed progress in wound healing of his venous ulcers, we discussed applying for advanced wound healing product for healing his ulcer. Due to the size of his ulcer, Theraskin application approval was requested from his insurance as it is medically necessary for salvaging his limb and healing his ulcer. He underwent 2 applications of Theraskin to this ulcer. Since application of Theraskin he had much improvement in epithelialization of his ulcer even though the overall size is not significantly changed there was progress. He is using Circaid compression wraps. Off-loading: The patient was instructed to avoid pressure and friction on the affected areas. Reposition every 2 hours at minimum. Avoid prolonged standing and/or dangling of legs. When seated, feet should be elevated at chest level. Frequent ambulation is encouraged. Encouraged lymphedema pump use. Diet: Patient encouraged to increase protein intake while taking caution to avoid high carbohydrate and/or sugar intake. Labs/cultures/imaging: Wound culture showed Pseudomonas, Escherichia hermannii, Raoultella planticola, Vancomycin Resist. E. faecalis, Alcaligenes faecalis ssp faeca, Staphylococcus cohnii urealyti and anaerobic bacteria on 06/15/24 and he completed on Levofloxacin and Augmentin. Wound culture taken today on right lateral ulcer which showed Raoultella planticola, Staph hemolyticus, staph epidermidis and morganella morganii but no anaeroobic bacteria, Levofloxacin and doxycyline were prescribed based on culture results. Labs ordered 10/19/2024. Vitamin D was low A1C 5.4% Wound culture from 12/07/24 was positive for Providencia stuartii, Vancomycin resistant E. Faecalis, Corynebacterium striatum and completed Augmentin orally. Follow-up: Return in 1 week for wound care follow up and have dressing changed by home health Mondays. Return sooner or report to the emergency room should symptoms worsen, or new symptoms arise. Note: [employer] speech recognition network diagnostic support specialist software was used to create portions of this document. Sound-alike and misspelled words, as well as other network diagnostic support specialist errors may be contained in the documentation.
[2025-05-17 12:06] VITALS: BP 144/70; PULSE 70; RESP 18; TEMP 35.7
--- NOTE | 2025-05-17 12:59 | PN.PCM_ITS ---
History of Present Illness Date of Service: 05/17/25 Chief Complaint: venous ulcers of left lower extremity History of Wound: Mauricio is a 69 yo gentleman who is here today for evaluation of ulcers to to his bilateral lower legs. He has been treated multiple times in the past at the wound healing center for similar ulcers. The left LE ulcer started after he developed increased swelling and blisters of left leg in October and the right leg started sometime at the end of October. He was seen at PCP's office a culture was taken and it was resistant to several antibiotics. He was treated initially with Levaquin but had myalgias and then was treated with doxycycline which he finished 2 days ago. He denies improvement and is having swelling to his left calf and thigh. He has been having swelling to both lower extremities for many years and it has worsened over the last few months. He has not been compliant with compression. He has had increased pain especially in the left leg. He has clear yellow drainage and redness without odor or warmth. He is anti- coagulated on coumadin. He has been washing with Dial soap and witch ifrah. He had been using Collagen at times and using Calcium Alginate and covering with ABD pads during October. He was treated with 3M compression and Aquacel Ag. He was referred to the wound center for ongoing treatment. His ulcers have moderate to heavy drainage. He was in the hospital from 11/30/22 until 12/09/22 for treatment of cellulitis and edema. He underwent treatment with Vancomycin and IV lasix and compression. Discharged on 12/09/22. He returned to his assisted living apartment on Tuesday12/21/22. Wound culture from 12/07/24 was positive for Providencia stuartii, Vancomycin resistant E. Faecalis, Corynebacterium striatum and completed Augmentin orally. His edema is better this week and he is tolerating Circaid compression. 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 He continues to use his lymphedema pumps but continues to have pain with use of these pumps. 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 Subjective Subjective Mauricio is a 69-year-old male with longstanding history of chronic venous ulceration to the left lower extremity and a right lower extremity venous ulcer that is nearly circumferential. There has been very small improvement over the last week. His edema is better today. He is more compliant with elevation but still is not compliant with compression pump frequency due to pain with use of pumps. He has been applying KATE wraps over his Circaids for extra compression. Wound culture from 12/07/24 was positive for Providencia stuartii, Vancomycin resistant E. Faecalis, Corynebacterium striatum and completed Augmentin orally. His edema is better this week and he is tolerating Circaid compression. 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 He continues to use his lymphedema pumps but continues to have pain with use of these pumps. 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 Objective Data Objective Data Vital Signs: Vital Signs Temp Pulse Resp BP 96.3 F L 70 18 144/70 H 05/17/25 12:06 05/17/25 12:06 05/17/25 12:05/17/25 12:06 Physical Exam Const alert, oriented x3 and no apparent distress General Appearance: cooperative and comfortable HEENT normocephalic and head/scalp atraumatic Lymph Lymphatic: lymphedema moderate Resp normal respiratory effort Effort and Inspection: able to speak in complete sentences Cardio regular rate and regular rhythm Extremity Extremity Narrative: His ulcers are painful and the right lower leg remains more swollen than his left but there is good granulation tissue throughout and slough that is nearly completely removed post - debridement, edges of ulcers are beveled without rolled borders General Extremity: edema bilateral lower extremity Details: severe Skin General Skin Exam: venous stasis and dermatitis Wounds: wounds noted Wound Narrative: as in clinical panel, + devitalized tissue, there is increased depth, + granulation tissue bilateral ulcer with good granulation and moderate slough prior to debridement and minimal post debridement Psych mental status grossly normal, thought process normal, cooperative and affect normal Debridement Note Debridement Note Wound debrided: left medial LE ulcer Laterality: Left Type of Debridement: Excisional debridement Anesthesia Used: 5% Lidocaine Gel and Cetacaine Depth: Down to and including healthy tissue and in the subcutaneous layer Percentage of wound debrided: 100 Instrument Used: - (Misonix ultrasonic debridement) Tissue Removed: Yellow slough, devitalized tissue Severity: Fat Layer Exposed Amount of bleeding with debridement: Mild Bleeding Controlled with: Compression and gauze Patient tolerated procedure: Patient tolerated procedure well Post-Debridement Measurements and Additional Note: Post-Debridement Measurements/Treatment - Nurse 1 - General Ulcer Assessment Start: 05/10/25 11:52 Freq: Status: Active Protocol: ONDINA Activity Type Activity Date Activity User E-sign Co-sign Detail Recorded Client Recorded Date Recorded By Document 05/10/25 11:52 CP [id number] 05/10/25 12:11 CP Document 05/17/25 12:06 RB [id number] 05/17/25 12:13 RB 05/10/25 05/17/25 11:52 12:06 - Today's Visit Information Type of service Follow-up Visit Follow-up Visit (Physician/VIDEO SYSTEM REPAIRER (Physician/VIDEO SYSTEM REPAIRER ) ) Arrival Mode Ambulatory, Ambulatory, Walker Walker Transfer Assistance Manual Patient Identification Verified (Name & Yes Yes ) Patient Requires Transmission-Based No No Precautions Vital Signs Temperature (97.8 F-99.1 F) 97.4 F L 96.3 F L Temperature Source Temporal Temporal Pulse Rate (60-100) 57 L 70 Pulse Location Monitor Monitor Respiratory Rate (12-18) 16 18 Respiratory rate source Observation Observation Blood Pressure (90/60-120/80) 139/82 H 144/70 H Blood Pressure Mean (mm Hg) 101 94 Source Monitor Monitor Position Semi-Fowlers Semi-Fowlers Blood Pressure Location Right Arm Left Arm History Since Last Visit- (Skip if this is Patient's initial visit) Have you changed medications since your No No last visit? Any new allergies or adverse reactions No No Had a fall/change in ADL's that may No No increase risk of falls Signs or symptoms of abuse and/or No No neglect since last visit Have you been in the hospital since your No No last visit? Has dressing in place as prescribed Yes Yes Has compression in place as prescribed Yes Yes Has offloadiing in place as prescribed N/A N/A Experienced any changes in pain level or No No management Left Footwear Regular Shoe Regular Shoe Right Footwear Regular Shoe Regular Shoe Pain Scale: 0-10 Numeric Is Patient Pain Free? Yes Yes WC - Nurse 1 - General Ulcer Measurement Start: 05/10/25 11:52 Freq: Status: Active Protocol: Activity Type Activity Date Activity User E-sign Co-sign Detail Recorded Client Recorded Date Recorded By Document 05/10/25 11:52 CP [id number] 05/10/25 12:11 CP Document 05/17/25 12:06 RB [id number] 05/17/25 12:13 RB 05/10/25 05/17/25 11:52 12:06 Wound Center Nurse 1 #24 Left Lateral Leg -Combined with other wound No -Current Size (cm) - Length 0.3 0.1 -Current Size (cm) - Width 0.3 0.1 -Current Size (cm) - Depth 0.1 0.1 -Total Square Cm 0.09 0.01 -Photo Taken Yes -Tunneling No -Undermining/Tunneling No -Circular Undermining No -Exudate Amt Medium -Exudate Type Serosanguineous -Wound Margin Flat & Intact Distinct, Outline Attached -Granulation Amt Large (67-100%) -Granulation Quality [place] -Slough/Fibrin Yes -Necrosis Amt None Present (0 Medium (34-66%) %) -Necrotic Tissue Type Adherent Slough -Structure Exposed N/A N/A -Texture (Marie-wound Skin Appearance) Friable Assessed, Scarring -Moisture (Marie-wound Skin Appearance) No Abnormality Assessed -Color (Marie-wound Skin Appearance) No Abnormality Assessed, Hemosiderin Staining -Temperature (Marie-wound Skin No Abnormality No Abnormality Appearance) (Pt Warm) (Pt Warm) -Tenderness on Palpation (Marie-wound No No Skin Appearance) -Ulcer Cleansing Soap and Water Wound Cleanser -Foul Odor after Cleansing No -Anesthetic Used 5% Lidocaine 5% Lidocaine Gel Gel #22 R Medial/Lateral leg -Combined with other wound No -Current Size (cm) - Length 9 0.1 -Current Size (cm) - Width 30 0.1 -Current Size (cm) - Depth 0.2 0.1 -Total Square Cm 270 0.01 -Photo Taken Yes -Tunneling No -Undermining/Tunneling No -Circular Undermining No -Exudate Amt Medium Medium -Exudate Type Serous Serosanguineous -Wound Margin Flat & Intact Distinct, Outline Attached -Granulation Amt Large (67-100%) -Granulation Quality [place] -Slough/Fibrin Yes -Necrosis Amt Small (1-33%) Medium (34-66%) -Necrotic Tissue Type Adherent Slough Adherent Slough -Structure Exposed N/A N/A -Texture (Marie-wound Skin Appearance) No Abnormality Assessed -Moisture (Marie-wound Skin Appearance) No Abnormality Assessed -Color (Marie-wound Skin Appearance) Erythema Assessed, Hemosiderin Staining -Temperature (Marie-wound Skin No Abnormality No Abnormality Appearance) (Pt Warm) (Pt Warm) -Tenderness on Palpation (Marie-wound No No Skin Appearance) -Ulcer Cleansing Soap and Water Wound Cleanser -Foul Odor after Cleansing No No -Anesthetic Used 5% Lidocaine 5% Lidocaine Gel Gel #18 Left medial LE cluster -Combined with other wound No -Current Size (cm) - Length 7.5 0.1 -Current Size (cm) - Width 13.2 0.1 -Current Size (cm) - Depth 0.2 0.1 -Total Square Cm 99.00 0.01 -Photo Taken Yes -Tunneling No -Undermining/Tunneling No -Circular Undermining No -Exudate Amt Medium Medium -Exudate Type Serous Serosanguineous -Wound Margin Flat & Intact Distinct, Outline Attached -Granulation Amt Large (67-100%) Medium (34-66%) -Granulation Quality [place] -Slough/Fibrin Yes Yes -Necrosis Amt Small (1-33%) Medium (34-66%) -Necrotic Tissue Type Adherent Slough Adherent Slough -Structure Exposed N/A N/A -Texture (Marie-wound Skin Appearance) No Abnormality Assessed -Moisture (Marie-wound Skin Appearance) No Abnormality Assessed -Color (Marie-wound Skin Appearance) Erythema Assessed, Hemosiderin Staining -Temperature (Marie-wound Skin No Abnormality No Abnormality Appearance) (Pt Warm) (Pt Warm) -Tenderness on Palpation (Marie-wound No Skin Appearance) -Ulcer Cleansing Soap and Water Wound Cleanser -Foul Odor after Cleansing No No -Anesthetic Used 5% Lidocaine 5% Lidocaine Gel Gel Lower Limb Edema Present Yes Right Calf (cm) 31.8 43.3 Right Ankle (cm) 47.3 29.5 Left Calf (cm) 45 41 Left Ankle (cm) 31 Point of Measurement (cm from the medial 29.4 instep) WC - Nurse 2 - General Ulcer CM Notes Start: 05/10/25 11:52 Freq: Status: Active Protocol: Activity Type Activity Date Activity User E-sign Co-sign Detail Recorded Client Recorded Date Recorded By Document 05/10/25 12:36 [id number] 05/10/25 12:46 Document 05/17/25 12:26 [id number] 05/17/25 12:35 05/10/25 05/17/25 12:36 12:26 Wound Center Nurse 2 #24 Left Lateral Leg -Time 12:36 12:26 -Correct Patient Yes Yes -Correct Side, Site, Position Yes Yes -Correct Procedure Yes Yes -Procedure Performed Yes Yes -Type of Procedure Debridement Debridement -Clinical Debridement Subcutaneous Subcutaneous -Tissue Removed Subcutaneous Subcutaneous -Post Debridement (cm) - Length 0.8 0.4 -Post Debridement (cm) - Width 0.2 0.2 -Post Debridement (cm) - Depth 0.1 0.1 -Total Square (Post) (cm) 0.16 0.08 -Area of Debridement (cm) - Length 0.8 0.4 -Area of Debridement (cm) - Width 0.2 0.2 -Total Square (Area) (cm) 0.16 0.08 -Tunneling No No -Undermining/Tunneling No No -Circular Undermining No No -Wound/Ulcer Outcome Not Healed Not Healed -Ulcer Cleansing Rinsed/ Rinsed/ Irrigated with Irrigated with Saline Saline -Foul Odor after Cleansing No No -Bioengineered Tissue No No -Bleeding Controlled with Pressure Pressure -Treatment Response Procedure Procedure Tolerated Well Tolerated Well -Offloading No -Debridement - Subq, 1st 20sq cm No No #22 R Medial/Lateral leg -Time 12:38 12:26 -Correct Patient Yes Yes -Correct Side, Site, Position Yes Yes -Correct Procedure Yes Yes -Procedure Performed Yes Yes -Type of Procedure Debridement Debridement -Clinical Debridement Subcutaneous Subcutaneous -Tissue Removed Subcutaneous Subcutaneous -Post Debridement (cm) - Length 10.2 10.6 -Post Debridement (cm) - Width 28.8 27.0 -Post Debridement (cm) - Depth 0.1 0.1 -Total Square (Post) (cm) 293.76 286.20 -Area of Debridement (cm) - Length 10.2 10.6 -Area of Debridement (cm) - Width 28.8 27.0 -Total Square (Area) (cm) 293.76 286.20 -Tunneling No No -Undermining/Tunneling No No -Circular Undermining No No -Wound/Ulcer Outcome Not Healed Not Healed -Ulcer Cleansing Rinsed/ Rinsed/ Irrigated with Irrigated with Saline Saline -Foul Odor after Cleansing No No -Bioengineered Tissue No No -Bleeding Controlled with Pressure Pressure -Treatment Response Procedure Procedure Tolerated Well Tolerated Well -Offloading No -Debridement - Subq, 1st 20sq cm No No #18 Left medial LE cluster -Time 12:39 12:27 -Correct Patient Yes Yes -Correct Side, Site, Position Yes Yes -Correct Procedure Yes Yes -Procedure Performed Yes Yes -Type of Procedure Debridement Debridement -Clinical Debridement Subcutaneous Subcutaneous -Tissue Removed Subcutaneous Subcutaneous -Post Debridement (cm) - Length 7.8 7.9 -Post Debridement (cm) - Width 12.8 12.7 -Post Debridement (cm) - Depth 0.1 0.1 -Total Square (Post) (cm) 99.84 100.33 -Area of Debridement (cm) - Length 7.8 7.9 -Area of Debridement (cm) - Width 12.8 12.7 -Total Square (Area) (cm) 99.84 100.33 -Tunneling No No -Undermining/Tunneling No No -Circular Undermining No No -Wound/Ulcer Outcome Not Healed Not Healed -Ulcer Cleansing Rinsed/ Rinsed/ Irrigated with Irrigated with Saline Saline -Foul Odor after Cleansing No No -Bioengineered Tissue No No -Bleeding Controlled with Pressure Pressure -Treatment Response Procedure Procedure Tolerated Well Tolerated Well -Offloading No No -Debridement - Subq, 1st 20sq cm Yes Yes -Debridement, SubQ, ea addt'l 20sq cm 19 19 or part thereof Pain Scale: 0-10 Numeric Is Patient Pain Free? Yes Yes - Nurse 3 - General Ulcer D/C NN Start: 05/10/25 11:52 Freq: Status: Active Protocol: Activity Type Activity Date Activity User E-sign Co-sign Detail Recorded Client Recorded Date Recorded By Document 05/10/25 12:52 KW [id number] 05/10/25 12:54 KW Document 05/17/25 12:49 KW [id number] 05/17/25 12:51 KW 05/10/25 05/17/25 12:52 12:49 Wound Care Center Nurse 3 #24 Left Lateral Leg -Primary Dressing Applied Optilok 5x5 1/2 Optilok 5x5 1/2 -Primary Dressing Covered/Secured with Dry Gauze & Dry Gauze & Roll Gauze, Roll Gauze, Secured with Secured with Tape Tape -Optilok 5x5 1/2 1 1 #22 R Medial/Lateral leg -Primary Dressing Applied Optilok 5x5 1/2 Optilok 5x5 1/2 ,Optilok 6.5x10 -Primary Dressing Covered/Secured with Dry Gauze & Roll Gauze, Secured with Tape -Optilok 5x5 1/2 1 1 -Optilok 6.5x10 1 #18 Left medial LE cluster -Primary Dressing Applied Optilok 5x5 1/2 Optilok 5x5 1/2 -Primary Dressing Covered/Secured with Dry Gauze & Dry Gauze & Roll Gauze, Roll Gauze, Secured with Secured with Tape Tape -Optilok 5x5 1/2 2 1 BLE -Stockings Yes: CIRCAIDS -Other circaids Treatment Response Procedure Tolerated Well Pain Scale: 0-10 Numeric Is Patient Pain Free? Yes Yes WC - Visit Discharge Discharge Condition Stable Stable Ambulatory Status Ambulatory, Ambulatory, Walker Walker Transportation Private Auto Private Auto Medication Reconcilliation completed & No No provided to patient/care provider Clinical Summary of Care Provided Yes Yes Additional Wound Wound debrided: left lateral leg Laterality: Left Type of Debridement: Excisional debridement Anesthesia Used: 5% Lidocaine Gel and Cetacaine Depth: Down to and including healthy tissue and in the subcutaneous layer Percentage of wound debrided: 100 Instrument Used: - (Misonix ultrasonic debridement) Tissue Removed: Yellow slough, devitalized tissue Severity: Fat Layer Exposed Amount of bleeding with debridement: Mild Bleeding Controlled with: Compression and gauze Patient tolerated procedure: Patient tolerated procedure well Additional Wound Wound debrided: right medial leg Laterality: Right Type of Debridement: Excisional debridement Anesthesia Used: 5% Lidocaine Gel and Cetacaine Depth: Down to and including healthy tissue and in the subcutaneous layer Percentage of wound debrided: 100 Instrument Used: - (Misonix ultrasonic debridement) Tissue Removed: Yellow slough, devitalized tissue Severity: Fat Layer Exposed Amount of bleeding with debridement: Mild Bleeding Controlled with: Compression and gauze Patient tolerated procedure: Patient tolerated procedure well Assessment/Plan Assessment/Plan (1) Lymphedema: CODE(S): I89.0 - Lymphedema, not elsewhere classified (2) Hypertension: CODE(S): I10 - Essential (primary) hypertension QUALIFIERS: Hypertension type: primary hypertension Qualified Code(s): I10 - Essential (primary) hypertension (3) Hyperlipidemia: CODE(S): E78.5 - Hyperlipidemia, unspecified QUALIFIERS: Hyperlipidemia type: mixed hyperlipidemia Qualified Code(s): E78.2 - Mixed hyperlipidemia (4) History of DVT (deep vein thrombosis): CODE(S): Z86.718 - Personal history of other venous thrombosis and embolism (5) Venous insufficiency (chronic) (peripheral): CODE(S): I87.2 - Venous insufficiency (chronic) (peripheral) (6) Venous ulcer of left lower extremity with varicose veins: CODE(S): I83.029 - Varicose veins of left lower extremity with ulcer of unspecified site (7) Edema: CODE(S): R60.9 - Edema, unspecified QUALIFIERS: Edema type: unspecified Qualified Code(s): R60.9 - Edema, unspecified (8) 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 At home wound-care instructions: Will use Circaid compression garments with super absorber and kerlix to right LE and left LE changed every day. Due to his chronic lymphedema and being unable to don traditional compression stockings and the presence of venous ulcers on his LE b/l, it is medically necessary for him to have Circaid compression garments. He is using Circaid compression to both legs. I suspect he is not very compliant with his lymphedema pumps and not getting adequate compression with tubigrips and Circaids. Due to the delayed progress in wound healing of his venous ulcers, we discussed applying for advanced wound healing product for healing his ulcer. Due to the size of his ulcer, Theraskin application approval was requested from his insuran ce as it is medically necessary for salvaging his limb and healing his ulcer. He underwent 2 applications of Theraskin to this ulcer. Since application of Theraskin he had much improvement in epithelialization of his ulcer even though the overall size is not significantly changed there was progress. He is using Circaid compression wraps. Off-loading: The patient was instructed to avoid pressure and friction on the affected areas. Reposition every 2 hours at minimum. Avoid prolonged standing and/or dangling of legs. When seated, feet should be elevated at chest level. Frequent ambulation is encouraged. Encouraged lymphedema pump use. Diet: Patient encouraged to increase protein intake while taking caution to avoid high carbohydrate and/or sugar intake. Labs/cultures/imaging: Wound culture showed Pseudomonas, Escherichia hermannii, Raoultella planticola, Vancomycin Resist. E. faecalis, Alcaligenes faecalis ssp faeca, Staphylococcus cohnii urealyti and anaerobic bacteria on 06/15/24 and he completed on Levofloxacin and Augmentin. Wound culture taken today on right lateral ulcer which showed Raoultella planticola, Staph hemolyticus, staph epidermidis and morganella morganii but no anaeroobic bacteria, Levofloxacin and doxycyline were prescribed based on culture results. Labs ordered 10/19/2024. Vitamin D was low A1C 5.4% Wound culture from 12/07/24 was positive for Providencia stuartii, Vancomycin resistant E. Faecalis, Corynebacterium striatum and completed Augmentin orally. Follow-up: Return in 1 week for wound care follow up and have dressing changed by home health Mondays. Return sooner or report to the emergency room should symptoms worsen, or new symptoms arise. Note: [employer] speech recognition skiving machine operator software was used to create portions of this document. Sound-alike and misspelled words, as well as other skiving machine operator errors may be contained in the documentation.
--- NOTE | 2025-05-23 09:39 | WC ---
PHOTO-RLE 05/17/25
--- NOTE | 2025-05-23 09:41 | WC ---
PHOTO-LLE 05/17/25
[2025-05-24 11:38] VITALS: BP 145/80; PULSE 59; RESP 18; TEMP 36.1
--- NOTE | 2025-05-24 12:44 | PCM.WC.PN ---
History of Present Illness Date of Service: 05/24/25 Chief Complaint: venous ulcers of left lower extremity History of Wound: Mauricio is a 69 yo gentleman who is here today for evaluation of ulcers to to his bilateral lower legs. He has been treated multiple times in the past at the wound healing center for similar ulcers. The left LE ulcer started after he developed increased swelling and blisters of left leg in October and the right leg started sometime at the end of October. He was seen at PCP's office a culture was taken and it was resistant to several antibiotics. He was treated initially with Levaquin but had myalgias and then was treated with doxycycline which he finished 2 days ago. He denies improvement and is having swelling to his left calf and thigh. He has been having swelling to both lower extremities for many years and it has worsened over the last few months. He has not been compliant with compression. He has had increased pain especially in the left leg. He has clear yellow drainage and redness without odor or warmth. He is anti-coagulated on coumadin. He has been washing with Dial soap and witch ifrah. He had been using Collagen at times and using Calcium Alginate and covering with ABD pads during October. He was treated with 3M compression and Aquacel Ag. He was referred to the wound center for ongoing treatment. His ulcers have moderate to heavy drainage. He was in the hospital from 11/30/22 until 12/09/22 for treatment of cellulitis and edema. He underwent treatment with Vancomycin and IV lasix and compression. Discharged on 12/09/22. He returned to his assisted living apartment on Tuesday12/21/22. Wound culture from 12/07/24 was positive for Providencia stuartii, Vancomycin resistant E. Faecalis, Corynebacterium striatum and completed Augmentin orally. His edema is better this week and he is tolerating Circaid compression. 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 He continues to use his lymphedema pumps but continues to have pain with use of these pumps. 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 Subjective Subjective Mauricio is a 69-year-old male with longstanding history of chronic venous ulceration to the left lower extremity and a right lower extremity venous ulcer that is nearly circumferential. There has been small improvement over the last week. His edema is stable today. He is more compliant with elevation but still is not compliant with compression pump frequency due to pain with use of pumps. He has been applying KATE wraps over his Circaids for extra compression. Wound culture from 12/07/24 was positive for Providencia stuartii, Vancomycin resistant E. Faecalis, Corynebacterium striatum and completed Augmentin orally. His edema is better this week and he is tolerating Circaid compression. 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 He continues to use his lymphedema pumps but continues to have pain with use of these pumps. 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 Objective Data Objective Data Vital Signs: Vital Signs Temp Pulse Resp BP O2 Del Method 97.0 F L 59 L 18 145/80 H Room Air 05/24/25 11:38 05/24/25 11:38 05/24/25 11:38 05/24/25 11:38 05/24/25 11:38 Oxygen Delivery Method Room Air Lab / Micro Data Attestation: I reviewed the patient's lab results. Physical Exam Const alert, oriented x3 and no apparent distress General Appearance: cooperative and comfortable HEENT normocephalic and head/scalp atraumatic Lymph Lymphatic: lymphedema moderate Resp normal respiratory effort Effort and Inspection: able to speak in complete sentences Cardio regular rate and regular rhythm Extremity Extremity Narrative: His ulcers are painful and the right lower leg remains more swollen than his left but there is good granulation tissue throughout and slough that is nearly completely removed post - debridement, edges of ulcers are beveled without rolled borders General Extremity: edema bilateral lower extremity Details: severe Skin General Skin Exam: venous stasis and dermatitis Wounds: wounds noted Wound Narrative: as in clinical panel, + devitalized tissue, there is increased depth, + granulation tissue bilateral ulcer with good granulation and moderate slough prior to debridement and minimal post debridement Psych mental status grossly normal, thought process normal, cooperative and affect normal Debridement Note Debridement Note Wound debrided: left medial LE ulcer Laterality: Left Type of Debridement: Excisional debridement Anesthesia Used: 5% Lidocaine Gel and Cetacaine Depth: Down to and including healthy tissue and in the subcutaneous layer Percentage of wound debrided: 100 Instrument Used: - (Misonix ultrasonic debridement) Tissue Removed: Yellow slough, devitalized tissue Severity: Fat Layer Exposed Amount of bleeding with debridement: Mild Bleeding Controlled with: Compression and gauze Patient tolerated procedure: Patient tolerated procedure well Post-Debridement Measurements and Additional Note: Post-Debridement Measurements/Treatment - Nurse 1 - General Ulcer Assessment Start: 05/10/25 11:52 Freq: Status: Active Protocol: [email or web address] Activity Type Activity Date Activity User E-sign Co-sign Detail Recorded Client Recorded Date Recorded By Document 05/10/25 11:52 CP [id number] 05/10/25 12:11 CP Document 05/17/25 12:06 RB [id number] 05/17/25 12:13 RB Document 05/24/25 11:38 KW [id number] 05/24/25 11:53 KW 05/10/25 05/17/25 05/24/25 11:52 12:06 11:38 - Today's Visit Information Type of service Follow-up Visit Follow-up Visit Follow-up Visit (Physician/CARDIOVASCULAR SURGEON (Physician/CARDIOVASCULAR SURGEON (Physician/CARDIOVASCULAR SURGEON ) ) ) Arrival Mode Ambulatory, Ambulatory, Ambulatory, Walker Walker Walker Transfer Assistance Manual Patient Identification Verified (Name & Yes Yes Yes ) Patient Requires Transmission-Based No No Precautions Vital Signs Temperature (97.8 F-99.1 F) 97.4 F L 96.3 F L 97.0 F L Temperature Source Temporal Temporal Temporal Pulse Rate (60-100) 57 L 70 59 L Pulse Location Monitor Monitor Monitor Respiratory Rate (12-18) 16 18 18 Respiratory rate source Observation Observation Observation Oxygen Delivery Method Room Air Blood Pressure (90/60-120/80) 139/82 H 144/70 H 145/80 H Blood Pressure Mean (mm Hg) 101 94 101 Source Monitor Monitor Monitor Position Semi-Fowlers Semi-Fowlers Semi-Fowlers Blood Pressure Location Right Arm Left Arm Left Arm History Since Last Visit- (Skip if this is Patient's initial visit) Have you changed medications since your No No No last visit? Any new allergies or adverse reactions No No No Had a fall/change in ADL's that may No No No increase risk of falls Signs or symptoms of abuse and/or No No No neglect since last visit Have you been in the hospital since your No No No last visit? Has dressing in place as prescribed Yes Yes Yes Has compression in place as prescribed Yes Yes Yes Has offloadiing in place as prescribed N/A N/A N/A Experienced any changes in pain level or No No No management Left Footwear Regular Shoe Regular Shoe Regular Shoe Right Footwear Regular Shoe Regular Shoe Regular Shoe Pain Scale: 0-10 Numeric Is Patient Pain Free? Yes Yes No ble -Description Sharp -Intensity 8 -Alleviating Factors/Interventions Medication, Medicate when due,Inactivity/ Resting WC - Nurse 1 - General Ulcer Measurement Start: 05/10/25 11:52 Freq: Status: Active Protocol: Activity Type Activity Date Activity User E-sign Co-sign Detail Recorded Client Recorded Date Recorded By Document 05/10/25 11:52 CP [id number] 05/10/25 12:11 CP Document 05/17/25 12:06 RB [id number] 05/17/25 12:13 RB Document 05/24/25 11:38 KW [id number] 05/24/25 11:53 KW 05/10/25 05/17/25 05/24/25 11:52 12:06 11:38 Wound Center Nurse 1 #24 Left Lateral Leg -Combined with other wound No -Current Size (cm) - Length 0.3 0.1 -Current Size (cm) - Width 0.3 0.1 -Current Size (cm) - Depth 0.1 0.1 -Total Square Cm 0.09 0.01 -Photo Taken Yes -Tunneling No -Undermining/Tunneling No -Circular Undermining No -Exudate Amt Medium Large -Exudate Type Serosanguineous Serosanguineous -Wound Margin Flat & Intact Distinct, Thickened Outline Attached -Granulation Amt Large (67-100%) Large (67-100%) -Granulation Quality [place] -Slough/Fibrin Yes -Necrosis Amt None Present (0 Medium (34-66%) Small (1-33%) %) -Necrotic Tissue Type Adherent Slough Adherent Slough -Structure Exposed N/A N/A -Texture (Marie-wound Skin Appearance) Friable Assessed, Assessed Scarring -Moisture (Marie-wound Skin Appearance) No Abnormality Assessed Assessed,Dry/ Scaly -Color (Marie-wound Skin Appearance) No Abnormality Assessed, Assessed, Hemosiderin Hemosiderin Staining Staining -Temperature (Marie-wound Skin No Abnormality No Abnormality No Abnormality Appearance) (Pt Warm) (Pt Warm) (Pt Warm) -Tenderness on Palpation (Marie-wound No No No Skin Appearance) -Ulcer Cleansing Soap and Water Wound Cleanser Soap and Water -Foul Odor after Cleansing No No -Anesthetic Used 5% Lidocaine 5% Lidocaine 5% Lidocaine Gel Gel Gel #22 R Medial/Lateral leg -Combined with other wound No -Current Size (cm) - Length 9 0.1 -Current Size (cm) - Width 30 0.1 -Current Size (cm) - Depth 0.2 0.1 -Total Square Cm 270 0.01 -Photo Taken Yes -Tunneling No -Undermining/Tunneling No -Circular Undermining No -Exudate Amt Medium Medium Large -Exudate Type Serous Serosanguineous Serosanguineous -Wound Margin Flat & Intact Distinct, Thickened Outline Attached -Granulation Amt Large (67-100%) Large (67-100%) -Granulation Quality [place] Red -Slough/Fibrin Yes -Necrosis Amt Small (1-33%) Medium (34-66%) Small (1-33%) -Necrotic Tissue Type Adherent Slough Adherent Slough Adherent Slough -Structure Exposed N/A N/A -Texture (Marie-wound Skin Appearance) No Abnormality Assessed Assessed -Moisture (Marie-wound Skin Appearance) No Abnormality Assessed Assessed -Color (Marie-wound Skin Appearance) Erythema Assessed, Assessed, Hemosiderin Hemosiderin Staining Staining -Temperature (Marie-wound Skin No Abnormality No Abnormality No Abnormality Appearance) (Pt Warm) (Pt Warm) (Pt Warm) -Tenderness on Palpation (Marie-wound No No No Skin Appearance) -Ulcer Cleansing Soap and Water Wound Cleanser Soap and Water -Foul Odor after Cleansing No No No -Anesthetic Used 5% Lidocaine 5% Lidocaine 5% Lidocaine Gel Gel Gel #18 Left medial LE cluster -Combined with other wound No -Current Size (cm) - Length 7.5 0.1 -Current Size (cm) - Width 13.2 0.1 -Current Size (cm) - Depth 0.2 0.1 -Total Square Cm 99.00 0.01 -Photo Taken Yes -Tunneling No -Undermining/Tunneling No -Circular Undermining No -Exudate Amt Medium Medium Large -Exudate Type Serous Serosanguineous Serosanguineous -Wound Margin Flat & Intact Distinct, Distinct, Outline Outline Attached Attached -Granulation Amt Large (67-100%) Medium (34-66%) Large (67-100%) -Granulation Quality [place] Red -Slough/Fibrin Yes Yes -Necrosis Amt Small (1-33%) Medium (34-66%) Small (1-33%) -Necrotic Tissue Type Adherent Slough Adherent Slough Adherent Slough -Structure Exposed N/A N/A -Texture (Marie-wound Skin Appearance) No Abnormality Assessed Assessed -Moisture (Marie-wound Skin Appearance) No Abnormality Assessed Assessed -Color (Marie-wound Skin Appearance) Erythema Assessed, Assessed, Hemosiderin Hemosiderin Staining Staining -Temperature (Marie-wound Skin No Abnormality No Abnormality No Abnormality Appearance) (Pt Warm) (Pt Warm) (Pt Warm) -Tenderness on Palpation (Marie-wound No No Skin Appearance) -Ulcer Cleansing Soap and Water Wound Cleanser Soap and Water -Foul Odor after Cleansing No No No -Anesthetic Used 5% Lidocaine 5% Lidocaine 5% Lidocaine Gel Gel Gel Lower Limb Edema Present Yes Right Calf (cm) 31.8 43.3 44 Right Ankle (cm) 47.3 29.5 28.5 Left Calf (cm) 45 41 43 Left Ankle (cm) 31 29 Point of Measurement (cm from the medial 29.4 instep) WC - Nurse 2 - General Ulcer CM Notes Start: 05/10/25 11:52 Freq: Status: Active Protocol: Activity Type Activity Date Activity User E-sign Co-sign Detail Recorded Client Recorded Date Recorded By Document 05/10/25 12:36 [id number] 05/10/25 12:46 Document 05/17/25 12:26 [id number] 05/17/25 12:35 Document 05/24/25 12:17 [id number] 05/24/25 12:29 05/10/25 05/17/25 05/24/25 12:36 12:26 12:17 Wound Center Nurse 2 #24 Left Lateral Leg -Time 12:36 12:26 12:17 -Correct Patient Yes Yes Yes -Correct Side, Site, Position Yes Yes Yes -Correct Procedure Yes Yes No -Procedure Performed Yes Yes No -Type of Procedure Debridement Debridement -Clinical Debridement Subcutaneous Subcutaneous -Tissue Removed Subcutaneous Subcutaneous -Post Debridement (cm) - Length 0.8 0.4 -Post Debridement (cm) - Width 0.2 0.2 -Post Debridement (cm) - Depth 0.1 0.1 -Total Square (Post) (cm) 0.16 0.08 -Area of Debridement (cm) - Length 0.8 0.4 -Area of Debridement (cm) - Width 0.2 0.2 -Total Square (Area) (cm) 0.16 0.08 -Tunneling No No No -Undermining/Tunneling No No No -Circular Undermining No No No -Wound/Ulcer Outcome Not Healed Not Healed Healed- Epithelialized -Ulcer Cleansing Rinsed/ Rinsed/ Not Cleansed Irrigated with Irrigated with Saline Saline -Foul Odor after Cleansing No No No -Bioengineered Tissue No No No -Bleeding Controlled with Pressure Pressure NA -Treatment Response Procedure Procedure Tolerated Well Tolerated Well -Offloading No No -Debridement - Subq, 1st 20sq cm No No #22 R Medial/Lateral leg -Time 12:38 12:26 12:17 -Correct Patient Yes Yes Yes -Correct Side, Site, Position Yes Yes Yes -Correct Procedure Yes Yes Yes -Procedure Performed Yes Yes Yes -Type of Procedure Debridement Debridement Debridement -Clinical Debridement Subcutaneous Subcutaneous Subcutaneous -Tissue Removed Subcutaneous Subcutaneous Subcutaneous -Post Debridement (cm) - Length 10.2 10.6 10.2 -Post Debridement (cm) - Width 28.8 27.0 26.5 -Post Debridement (cm) - Depth 0.1 0.1 0.1 -Total Square (Post) (cm) 293.76 286.20 270.30 -Area of Debridement (cm) - Length 10.2 10.6 10.2 -Area of Debridement (cm) - Width 28.8 27.0 26.5 -Total Square (Area) (cm) 293.76 286.20 270.30 -Tunneling No No No -Undermining/Tunneling No No No -Circular Undermining No No No -Wound/Ulcer Outcome Not Healed Not Healed Not Healed -Ulcer Cleansing Rinsed/ Rinsed/ Rinsed/ Irrigated with Irrigated with Irrigated with Saline Saline Saline -Foul Odor after Cleansing No No No -Bioengineered Tissue No No No -Bleeding Controlled with Pressure Pressure Pressure -Treatment Response Procedure Procedure Procedure Tolerated Well Tolerated Well Tolerated Well -Offloading No No -Debridement - Subq, 1st 20sq cm No No Yes -Debridement, SubQ, ea addt'l 20sq cm 18 or part thereof #18 Left medial LE cluster -Time 12:39 12:27 12:18 -Correct Patient Yes Yes Yes -Correct Side, Site, Position Yes Yes Yes -Correct Procedure Yes Yes Yes -Procedure Performed Yes Yes Yes -Type of Procedure Debridement Debridement Debridement -Clinical Debridement Subcutaneous Subcutaneous Subcutaneous -Tissue Removed Subcutaneous Subcutaneous Subcutaneous -Post Debridement (cm) - Length 7.8 7.9 7.5 -Post Debridement (cm) - Width 12.8 12.7 13.0 -Post Debridement (cm) - Depth 0.1 0.1 0.1 -Total Square (Post) (cm) 99.84 100.33 97.50 -Area of Debridement (cm) - Length 7.8 7.9 7.5 -Area of Debridement (cm) - Width 12.8 12.7 13.0 -Total Square (Area) (cm) 99.84 100.33 97.50 -Tunneling No No No -Undermining/Tunneling No No No -Circular Undermining No No No -Wound/Ulcer Outcome Not Healed Not Healed Not Healed -Ulcer Cleansing Rinsed/ Rinsed/ Rinsed/ Irrigated with Irrigated with Irrigated with Saline Saline Saline -Foul Odor after Cleansing No No No -Bioengineered Tissue No No No -Bleeding Controlled with Pressure Pressure Pressure -Treatment Response Procedure Procedure Procedure Tolerated Well Tolerated Well Tolerated Well -Offloading No No No -Debridement - Subq, 1st 20sq cm Yes Yes No -Debridement, SubQ, ea addt'l 20sq cm 19 19 or part thereof Pain Scale: 0-10 Numeric Is Patient Pain Free? Yes Yes Yes - Nurse 3 - General Ulcer D/C NN Start: 05/10/25 11:52 Freq: Status: Active Protocol: Activity Type Activity Date Activity User E-sign Co-sign Detail Recorded Client Recorded Date Recorded By Document 05/10/25 12:52 KW [id number] 05/10/25 12:54 KW Document 05/17/25 12:49 KW [id number] 05/17/25 12:51 KW 05/10/25 05/17/25 12:52 12:49 Wound Care Center Nurse 3 #24 Left Lateral Leg -Primary Dressing Applied Optilok 5x5 1/2 Optilok 5x5 1/2 -Primary Dressing Covered/Secured with Dry Gauze & Dry Gauze & Roll Gauze, Roll Gauze, Secured with Secured with Tape Tape -Optilok 5x5 1/2 1 1 #22 R Medial/Lateral leg -Primary Dressing Applied Optilok 5x5 1/2 Optilok 5x5 1/2 ,Optilok 6.5x10 -Primary Dressing Covered/Secured with Dry Gauze & Roll Gauze, Secured with Tape -Optilok 5x5 1/2 1 1 -Optilok 6.5x10 1 #18 Left medial LE cluster -Primary Dressing Applied Optilok 5x5 1/2 Optilok 5x5 1/2 -Primary Dressing Covered/Secured with Dry Gauze & Dry Gauze & Roll Gauze, Roll Gauze, Secured with Secured with Tape Tape -Optilok 5x5 1/2 2 1 BLE -Stockings Yes: CIRCAIDS -Other circaids Treatment Response Procedure Tolerated Well Pain Scale: 0-10 Numeric Is Patient Pain Free? Yes Yes WC - Visit Discharge Discharge Condition Stable Stable Ambulatory Status Ambulatory, Ambulatory, Walker Walker Transportation Private Auto Private Auto Medication Reconcilliation completed & No No provided to patient/care provider Clinical Summary of Care Provided Yes Yes Additional Wound Wound debrided: right medial leg Laterality: Right Type of Debridement: Excisional debridement Anesthesia Used: 4% Lidocaine Solution, 5% Lidocaine Gel and Cetacaine Depth: Down to and including healthy tissue and in the subcutaneous layer Percentage of wound debrided: 100 Instrument Used: - (Misonix ultrasonic debridement) Tissue Removed: Yellow slough, devitalized tissue Severity: Fat Layer Exposed Amount of bleeding with debridement: Mild Bleeding Controlled with: Compression and gauze Patient tolerated procedure: Patient tolerated procedure well Assessment/Plan Assessment/Plan (1) Lymphedema: CODE(S): I89.0 - Lymphedema, not elsewhere classified (2) Hypertension: CODE(S): I10 - Essential (primary) hypertension QUALIFIERS: Hypertension type: primary hypertension Qualified Code(s): I10 - Essential (primary) hypertension (3) Hyperlipidemia: CODE(S): E78.5 - Hyperlipidemia, unspecified QUALIFIERS: Hyperlipidemia type: mixed hyperlipidemia Qualified Code(s): E78.2 - Mixed hyperlipidemia (4) History of DVT (deep vein thrombosis): CODE(S): Z86.718 - Personal history of other venous thrombosis and embolism (5) Venous insufficiency (chronic) (peripheral): CODE(S): I87.2 - Venous insufficiency (chronic) (peripheral) (6) Venous ulcer of left lower extremity with varicose veins: CODE(S): I83.029 - Varicose veins of left lower extremity with ulcer of unspecified site (7) Edema: CODE(S): R60.9 - Edema, unspecified QUALIFIERS: Edema type: unspecified Qualified Code(s): R60.9 - Edema, unspecified (8) 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 At home wound-care instructions: Will use Circaid compression garments with Fibracol to ulcers and cover with super absorber and kerlix to right LE and left LE changed every day. Due to his chronic lymphedema and being unable to don traditional compression stockings and the presence of venous ulcers on his LE b/l, it is medically necessary for him to have Circaid compression garments. He is using Circaid compression to both legs. I suspect he is not very compliant with his lymphedema pumps and not getting adequate compression with tubigrips and Circaids. Due to the delayed progress in wound healing of his venous ulcers, we discussed applying for advanced wound healing product for healing his ulcer. Due to the size of his ulcer, Theraskin application approval was requested from his insurance as it is medically necessary for salvaging his limb and healing his ulcer. He underwent 2 applications of Theraskin to this ulcer. Since application of Theraskin he had much improvement in epithelialization of his ulcer even though the overall size is not significantly changed there was progress. He is using Circaid compression wraps. Off-loading: The patient was instructed to avoid pressure and friction on the affected areas. Reposition every 2 hours at minimum. Avoid prolonged standing and/or dangling of legs. When seated, feet should be elevated at chest level. Frequent ambulation is encouraged. Encouraged lymphedema pump use. Diet: Patient encouraged to increase protein intake while taking caution to avoid high carbohydrate and/or sugar intake. Labs/cultures/imaging: Wound culture showed Pseudomonas, Escherichia hermannii, Raoultella planticola, Vancomycin Resist. E. faecalis, Alcaligenes faecalis ssp faeca, Staphylococcus cohnii urealyti and anaerobic bacteria on 06/15/24 and he completed on Levofloxacin and Augmentin. Wound culture taken today on right lateral ulcer which showed Raoultella planticola, Staph hemolyticus, staph epidermidis and morganella morganii but no anaeroobic bacteria, Levofloxacin and doxycyline were prescribed based on culture results. Labs ordered 10/19/2024. Vitamin D was low A1C 5.4% Wound culture from 12/07/24 was positive for Providencia stuartii, Vancomycin resistant E. Faecalis, Corynebacterium striatum and completed Augmentin orally. Follow-up: Return in 1 week for wound care follow up and have dressing changed by home health Mondays. Return sooner or report to the emergency room should symptoms worsen, or new symptoms arise. Note: [employer] speech recognition timber deadener software was used to create portions of this document. Sound-alike and misspelled words, as well as other timber deadener errors may be contained in the documentation.
--- NOTE | 2025-05-27 10:47 | WC ---
PHOTO-LLE 05/24/25
--- NOTE | 2025-05-27 10:48 | WC ---
PHOTO-RLE 05/24/25
--- NOTE | 2025-05-27 10:48 | WC ---
PHOTO-RLE 05/24/25
[2025-05-31 12:09] VITALS: BP 133/68; PULSE 60; RESP 16; TEMP 35.8
--- NOTE | 2025-06-03 08:36 | WC ---
PHOTO-LEFT [facility] 05/31/25
--- NOTE | 2025-06-03 08:37 | WC ---
PHOTO-LEFT LAT LEG 05/31/25
--- NOTE | 2025-06-03 08:37 | WC ---
PHOTO-RIGHT MED LAT LEG 05/31/25
--- NOTE | 2025-06-03 08:38 | WC ---
PHOTO-RIGHT MED LAT LEG 05/31/25
--- NOTE | 2025-06-03 08:39 | WC ---
PHOTO-RIGHT MED LAT LEG
--- NOTE | 2025-06-03 08:40 | WC ---
PHOTO-RIGHT MED LAT LEG 05/31/25
== END 2025-06-09 23:59 | disposition home or self-care (01) ==
LOC: WC 11:30
PROVIDERS: PCP Family Medicine; Referring Provider Family Medicine; Visit Provider Family Medicine
DX: I83.893 Varicose veins of bilateral lower extremities with other complications (principal); L97.922 Non-pressure chronic ulcer of unspecified part of left lower leg with fat layer exposed; L97.912 Non-pressure chronic ulcer of unspecified part of right lower leg with fat layer exposed; I10 Essential (primary) hypertension; I89.0 Lymphedema, not elsewhere classified; R60.9 Edema, unspecified; E78.2 Mixed hyperlipidemia; I87.2 Venous insufficiency (chronic) (peripheral); Z86.718 Personal history of other venous thrombosis and embolism
CPT/HCPCS: 11042; 11045

== ENCOUNTER → 2025-05-31 | Outpatient (CLI) | payer MEDICARE, OTHER, SELFPAY ==
--- NOTE | 2025-05-31 15:22 | PN.PCM_ITS ---
History of Present Illness Date of Service: 05/31/25 Chief Complaint: venous ulcers of left lower extremity History of Wound: Mauricio is a 69 yo gentleman who is here today for evaluation of ulcers to to his bilateral lower legs. He has been treated multiple times in the past at the wound healing center for similar ulcers. The left LE ulcer started after he developed increased swelling and blisters of left leg in October and the right leg started sometime at the end of October. He was seen at PCP's office a culture was taken and it was resistant to several antibiotics. He was treated initially with Levaquin but had myalgias and then was treated with doxycycline which he finished 2 days ago. He denies improvement and is having swelling to his left calf and thigh. He has been having swelling to both lower extremities for many years and it has worsened over the last few months. He has not been compliant with compression. He has had increased pain especially in the left leg. He has clear yellow drainage and redness without odor or warmth. He is anti- coagulated on coumadin. He has been washing with Dial soap and witch ifrah. He had been using Collagen at times and using Calcium Alginate and covering with ABD pads during October. He was treated with 3M compression and Aquacel Ag. He was referred to the wound center for ongoing treatment. His ulcers have moderate to heavy drainage. He was in the hospital from 11/30/22 until 12/09/22 for treatment of cellulitis and edema. He underwent treatment with Vancomycin and IV lasix and compression. Discharged on 12/09/22. He returned to his assisted living apartment on Tuesday12/21/22. Wound culture from 12/07/24 was positive for Providencia stuartii, Vancomycin resistant E. Faecalis, Corynebacterium striatum and completed Augmentin orally. His edema is better this week and he is tolerating Circaid compression. 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 He continues to use his lymphedema pumps but continues to have pain with use of these pumps. 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 Subjective Subjective Mauricio is a 69-year-old male with longstanding history of chronic venous ulceration to the left lower extremity and a right lower extremity venous ulcer that is nearly circumferential. There has been small improvement over the last week. His edema is stable today. He is more compliant with elevation but still is not compliant with compression pump frequency due to pain with use of pumps. He has been applying KATE wraps over his Circaids for extra compression. Wound culture from 12/07/24 was positive for Providencia stuartii, Vancomycin resistant E. Faecalis, Corynebacterium striatum and completed Augmentin orally. His edema is better this week and he is tolerating Circaid compression. 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 He continues to use his lymphedema pumps but continues to have pain with use of these pumps. 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 Physical Exam Const alert, oriented x3 and no apparent distress General Appearance: cooperative and comfortable HEENT normocephalic and head/scalp atraumatic Lymph Lymphatic: lymphedema moderate Resp normal respiratory effort Effort and Inspection: able to speak in complete sentences Cardio regular rate and regular rhythm Extremity Extremity Narrative: His ulcers are painful and the right lower leg remains more swollen than his left but there is good granulation tissue throughout and slough that is nearly completely removed post - debridement, edges of ulcers are beveled without rolled borders General Extremity: edema bilateral lower extremity Details: severe Skin General Skin Exam: venous stasis and dermatitis Wounds: wounds noted Wound Narrative: as in clinical panel, + devitalized tissue, there is increased depth, + granulation tissue bilateral ulcer with good granulation and moderate slough prior to debridement and minimal post debridement Psych mental status grossly normal, thought process normal, cooperative and affect normal Debridement Note Debridement Note Wound debrided: left medial LE ulcer Laterality: Left Type of Debridement: Excisional debridement Anesthesia Used: 5% Lidocaine Gel and Cetacaine Depth: Down to and including healthy tissue and in the subcutaneous layer Percentage of wound debrided: 100 Instrument Used: - (Misonix ultrasonic debridement) Tissue Removed: Yellow slough, devitalized tissue Severity: Fat Layer Exposed Amount of bleeding with debridement: Mild Bleeding Controlled with: Compression and gauze Patient tolerated procedure: Patient tolerated procedure well Post-Debridement Measurements and Additional Note: Post-Debridement Measurements/Treatment - Nurse 1 - General Ulcer Assessment Start: 05/10/25 11:52 Freq: Status: Active Protocol: ONDINA Activity Type Activity Date Activity User E-sign Co-sign Detail Recorded Client Recorded Date Recorded By Document 05/10/25 11:52 CP [id number] 05/10/25 12:11 CP Document 05/17/25 12:06 RB [id number] 05/17/25 12:13 RB Document 05/24/25 11:38 KW [id number] 05/24/25 11:53 KW 05/10/25 05/17/25 05/24/25 11:52 12:06 11:38 - Today's Visit Information Type of service Follow-up Visit Follow-up Visit Follow-up Visit (Physician/CONTROL CLERK SUBASSEMBLY (Physician/CONTROL CLERK SUBASSEMBLY (Physician/CONTROL CLERK SUBASSEMBLY ) ) ) Arrival Mode Ambulatory, Ambulatory, Ambulatory, Walker Walker Walker Transfer Assistance Manual Patient Identification Verified (Name & Yes Yes Yes ) Patient Requires Transmission-Based No No Precautions Vital Signs Temperature (97.8 F-99.1 F) 97.4 F L 96.3 F L 97.0 F L Temperature Source Temporal Temporal Temporal Pulse Rate (60-100) 57 L 70 59 L Pulse Location Monitor Monitor Monitor Respiratory Rate (12-18) 16 18 18 Respiratory rate source Observation Observation Observation Oxygen Delivery Method Room Air Blood Pressure (90/60-120/80) 139/82 H 144/70 H 145/80 H Blood Pressure Mean (mm Hg) 101 94 101 Source Monitor Monitor Monitor Position Semi-Fowlers Semi-Fowlers Semi-Fowlers Blood Pressure Location Right Arm Left Arm Left Arm History Since Last Visit- (Skip if this is Patient's initial visit) Have you changed medications since your No No No last visit? Any new allergies or adverse reactions No No No Had a fall/change in ADL's that may No No No increase risk of falls Signs or symptoms of abuse and/or No No No neglect since last visit Have you been in the hospital since your No No No last visit? Has dressing in place as prescribed Yes Yes Yes Has compression in place as prescribed Yes Yes Yes Has offloadiing in place as prescribed N/A N/A N/A Experienced any changes in pain level or No No No management Left Footwear Regular Shoe Regular Shoe Regular Shoe Right Footwear Regular Shoe Regular Shoe Regular Shoe Pain Scale: 0-10 Numeric Is Patient Pain Free? Yes Yes No ble -Description Sharp -Intensity 8 -Alleviating Factors/Interventions Medication, Medicate when due,Inactivity/ Resting WC - Nurse 1 - General Ulcer Measurement Start: 05/10/25 11:52 Freq: Status: Active Protocol: Activity Type Activity Date Activity User E-sign Co-sign Detail Recorded Client Recorded Date Recorded By Document 05/10/25 11:52 CP [id number] 05/10/25 12:11 CP Document 05/17/25 12:06 RB [id number] 05/17/25 12:13 RB Document 05/24/25 11:38 KW [id number] 05/24/25 11:53 KW 05/10/25 05/17/25 05/24/25 11:52 12:06 11:38 Wound Center Nurse 1 #24 Left Lateral Leg -Combined with other wound No -Current Size (cm) - Length 0.3 0.1 -Current Size (cm) - Width 0.3 0.1 -Current Size (cm) - Depth 0.1 0.1 -Total Square Cm 0.09 0.01 -Photo Taken Yes -Tunneling No -Undermining/Tunneling No -Circular Undermining No -Exudate Amt Medium Large -Exudate Type Serosanguineous Serosanguineous -Wound Margin Flat & Intact Distinct, Thickened Outline Attached -Granulation Amt Large (67-100%) Large (67-100%) -Granulation Quality Lapwai Lapwai Red -Slough/Fibrin Yes -Necrosis Amt None Present (0 Medium (34-66%) Small (1-33%) %) -Necrotic Tissue Type Adherent Slough Adherent Slough -Structure Exposed N/A N/A -Texture (Marie-wound Skin Appearance) Friable Assessed, Assessed Scarring -Moisture (Marie-wound Skin Appearance) No Abnormality Assessed Assessed,Dry/ Scaly -Color (Marie-wound Skin Appearance) No Abnormality Assessed, Assessed, Hemosiderin Hemosiderin Staining Staining -Temperature (Marie-wound Skin No Abnormality No Abnormality No Abnormality Appearance) (Pt Warm) (Pt Warm) (Pt Warm) -Tenderness on Palpation (Marie-wound No No No Skin Appearance) -Ulcer Cleansing Soap and Water Wound Cleanser Soap and Water -Foul Odor after Cleansing No No -Anesthetic Used 5% Lidocaine 5% Lidocaine 5% Lidocaine Gel Gel Gel #22 R Medial/Lateral leg -Combined with other wound No -Current Size (cm) - Length 9 0.1 -Current Size (cm) - Width 30 0.1 -Current Size (cm) - Depth 0.2 0.1 -Total Square Cm 270 0.01 -Photo Taken Yes -Tunneling No -Undermining/Tunneling No -Circular Undermining No -Exudate Amt Medium Medium Large -Exudate Type Serous Serosanguineous Serosanguineous -Wound Margin Flat & Intact Distinct, Thickened Outline Attached -Granulation Amt Large (67-100%) Large (67-100%) -Granulation Quality Lapwai Lapwai Red -Slough/Fibrin Yes -Necrosis Amt Small (1-33%) Medium (34-66%) Small (1-33%) -Necrotic Tissue Type Adherent Slough Adherent Slough Adherent Slough -Structure Exposed N/A N/A -Texture (Marie-wound Skin Appearance) No Abnormality Assessed Assessed -Moisture (Marie-wound Skin Appearance) No Abnormality Assessed Assessed -Color (Marie-wound Skin Appearance) Erythema Assessed, Assessed, Hemosiderin Hemosiderin Staining Staining -Temperature (Marie-wound Skin No Abnormality No Abnormality No Abnormality Appearance) (Pt Warm) (Pt Warm) (Pt Warm) -Tenderness on Palpation (Marie-wound No No No Skin Appearance) -Ulcer Cleansing Soap and Water Wound Cleanser Soap and Water -Foul Odor after Cleansing No No No -Anesthetic Used 5% Lidocaine 5% Lidocaine 5% Lidocaine Gel Gel Gel #18 Left medial LE cluster -Combined with other wound No -Current Size (cm) - Length 7.5 0.1 -Current Size (cm) - Width 13.2 0.1 -Current Size (cm) - Depth 0.2 0.1 -Total Square Cm 99.00 0.01 -Photo Taken Yes -Tunneling No -Undermining/Tunneling No -Circular Undermining No -Exudate Amt Medium Medium Large -Exudate Type Serous Serosanguineous Serosanguineous -Wound Margin Flat & Intact Distinct, Distinct, Outline Outline Attached Attached -Granulation Amt Large (67-100%) Medium (34-66%) Large (67-100%) -Granulation Quality Lapwai Lapwai Red -Slough/Fibrin Yes Yes -Necrosis Amt Small (1-33%) Medium (34-66%) Small (1-33%) -Necrotic Tissue Type Adherent Slough Adherent Slough Adherent Slough -Structure Exposed N/A N/A -Texture (Marie-wound Skin Appearance) No Abnormality Assessed Assessed -Moisture (Marie-wound Skin Appearance) No Abnormality Assessed Assessed -Color (Marie-wound Skin Appearance) Erythema Assessed, Assessed, Hemosiderin Hemosiderin Staining Staining -Temperature (Marie-wound Skin No Abnormality No Abnormality No Abnormality Appearance) (Pt Warm) (Pt Warm) (Pt Warm) -Tenderness on Palpation (Marie-wound No No Skin Appearance) -Ulcer Cleansing Soap and Water Wound Cleanser Soap and Water -Foul Odor after Cleansing No No No -Anesthetic Used 5% Lidocaine 5% Lidocaine 5% Lidocaine Gel Gel Gel Lower Limb Edema Present Yes Right Calf (cm) 31.8 43.3 44 Right Ankle (cm) 47.3 29.5 28.5 Left Calf (cm) 45 41 43 Left Ankle (cm) 31 29 Point of Measurement (cm from the medial 29.4 instep) WC - Nurse 2 - General Ulcer CM Notes Start: 05/10/25 11:52 Freq: Status: Active Protocol: Activity Type Activity Date Activity User E-sign Co-sign Detail Recorded Client Recorded Date Recorded By Document 05/10/25 12:36 [id number] 05/10/25 12:46 Document 05/17/25 12:26 [id number] 05/17/25 12:35 Document 05/24/25 12:17 [id number] 05/24/25 12:29 05/10/25 05/17/25 05/24/25 12:36 12:26 12:17 Wound Center Nurse 2 #24 Left Lateral Leg -Time 12:36 12:26 12:17 -Correct Patient Yes Yes Yes -Correct Side, Site, Position Yes Yes Yes -Correct Procedure Yes Yes No -Procedure Performed Yes Yes No -Type of Procedure Debridement Debridement -Clinical Debridement Subcutaneous Subcutaneous -Tissue Removed Subcutaneous Subcutaneous -Post Debridement (cm) - Length 0.8 0.4 -Post Debridement (cm) - Width 0.2 0.2 -Post Debridement (cm) - Depth 0.1 0.1 -Total Square (Post) (cm) 0.16 0.08 -Area of Debridement (cm) - Length 0.8 0.4 -Area of Debridement (cm) - Width 0.2 0.2 -Total Square (Area) (cm) 0.16 0.08 -Tunneling No No No -Undermining/Tunneling No No No -Circular Undermining No No No -Wound/Ulcer Outcome Not Healed Not Healed Healed- Epithelialized -Ulcer Cleansing Rinsed/ Rinsed/ Not Cleansed Irrigated with Irrigated with Saline Saline -Foul Odor after Cleansing No No No -Bioengineered Tissue No No No -Bleeding Controlled with Pressure Pressure NA -Treatment Response Procedure Procedure Tolerated Well Tolerated Well -Offloading No No -Debridement - Subq, 1st 20sq cm No No #22 R Medial/Lateral leg -Time 12:38 12:26 12:17 -Correct Patient Yes Yes Yes -Correct Side, Site, Position Yes Yes Yes -Correct Procedure Yes Yes Yes -Procedure Performed Yes Yes Yes -Type of Procedure Debridement Debridement Debridement -Clinical Debridement Subcutaneous Subcutaneous Subcutaneous -Tissue Removed Subcutaneous Subcutaneous Subcutaneous -Post Debridement (cm) - Length 10.2 10.6 10.2 -Post Debridement (cm) - Width 28.8 27.0 26.5 -Post Debridement (cm) - Depth 0.1 0.1 0.1 -Total Square (Post) (cm) 293.76 286.20 270.30 -Area of Debridement (cm) - Length 10.2 10.6 10.2 -Area of Debridement (cm) - Width 28.8 27.0 26.5 -Total Square (Area) (cm) 293.76 286.20 270.30 -Tunneling No No No -Undermining/Tunneling No No No -Circular Undermining No No No -Wound/Ulcer Outcome Not Healed Not Healed Not Healed -Ulcer Cleansing Rinsed/ Rinsed/ Rinsed/ Irrigated with Irrigated with Irrigated with Saline Saline Saline -Foul Odor after Cleansing No No No -Bioengineered Tissue No No No -Bleeding Controlled with Pressure Pressure Pressure -Treatment Response Procedure Procedure Procedure Tolerated Well Tolerated Well Tolerated Well -Offloading No No -Debridement - Subq, 1st 20sq cm No No Yes -Debridement, SubQ, ea addt'l 20sq cm 18 or part thereof #18 Left medial LE cluster -Time 12:39 12:27 12:18 -Correct Patient Yes Yes Yes -Correct Side, Site, Position Yes Yes Yes -Correct Procedure Yes Yes Yes -Procedure Performed Yes Yes Yes -Type of Procedure Debridement Debridement Debridement -Clinical Debridement Subcutaneous Subcutaneous Subcutaneous -Tissue Removed Subcutaneous Subcutaneous Subcutaneous -Post Debridement (cm) - Length 7.8 7.9 7.5 -Post Debridement (cm) - Width 12.8 12.7 13.0 -Post Debridement (cm) - Depth 0.1 0.1 0.1 -Total Square (Post) (cm) 99.84 100.33 97.50 -Area of Debridement (cm) - Length 7.8 7.9 7.5 -Area of Debridement (cm) - Width 12.8 12.7 13.0 -Total Square (Area) (cm) 99.84 100.33 97.50 -Tunneling No No No -Undermining/Tunneling No No No -Circular Undermining No No No -Wound/Ulcer Outcome Not Healed Not Healed Not Healed -Ulcer Cleansing Rinsed/ Rinsed/ Rinsed/ Irrigated with Irrigated with Irrigated with Saline Saline Saline -Foul Odor after Cleansing No No No -Bioengineered Tissue No No No -Bleeding Controlled with Pressure Pressure Pressure -Treatment Response Procedure Procedure Procedure Tolerated Well Tolerated Well Tolerated Well -Offloading No No No -Debridement - Subq, 1st 20sq cm Yes Yes No -Debridement, SubQ, ea addt'l 20sq cm 19 19 or part thereof Pain Scale: 0-10 Numeric Is Patient Pain Free? Yes Yes Yes - Nurse 3 - General Ulcer D/C NN Start: 05/10/25 11:52 Freq: Status: Active Protocol: Activity Type Activity Date Activity User E-sign Co-sign Detail Recorded Client Recorded Date Recorded By Document 05/10/25 12:52 KW [id number] 05/10/25 12:54 KW Document 05/17/25 12:49 KW [id number] 05/17/25 12:51 KW 05/10/25 05/17/25 12:52 12:49 Wound Care Center Nurse 3 #24 Left Lateral Leg -Primary Dressing Applied Optilok 5x5 1/2 Optilok 5x5 1/2 -Primary Dressing Covered/Secured with Dry Gauze & Dry Gauze & Roll Gauze, Roll Gauze, Secured with Secured with Tape Tape -Optilok 5x5 1/2 1 1 #22 R Medial/Lateral leg -Primary Dressing Applied Optilok 5x5 1/2 Optilok 5x5 1/2 ,Optilok 6.5x10 -Primary Dressing Covered/Secured with Dry Gauze & Roll Gauze, Secured with Tape -Optilok 5x5 1/2 1 1 -Optilok 6.5x10 1 #18 Left medial LE cluster -Primary Dressing Applied Optilok 5x5 1/2 Optilok 5x5 1/2 -Primary Dressing Covered/Secured with Dry Gauze & Dry Gauze & Roll Gauze, Roll Gauze, Secured with Secured with Tape Tape -Optilok 5x5 1/2 2 1 BLE -Stockings Yes: CIRCAIDS -Other circaids Treatment Response Procedure Tolerated Well Pain Scale: 0-10 Numeric Is Patient Pain Free? Yes Yes WC - Visit Discharge Discharge Condition Stable Stable Ambulatory Status Ambulatory, Ambulatory, Walker Walker Transportation Private Auto Private Auto Medication Reconcilliation completed & No No provided to patient/care provider Clinical Summary of Care Provided Yes Yes Additional Wound Wound debrided: right medial leg Laterality: Right Type of Debridement: Excisional debridement Anesthesia Used: 4% Lidocaine Solution, 5% Lidocaine Gel and Cetacaine Depth: Down to and including healthy tissue and in the subcutaneous layer Percentage of wound debrided: 100 Instrument Used: - (Misonix ultrasonic debridement) Tissue Removed: Yellow slough, devitalized tissue Severity: Fat Layer Exposed Amount of bleeding with debridement: Mild Bleeding Controlled with: Compression and gauze Patient tolerated procedure: Patient tolerated procedure well Assessment/Plan Assessment/Plan (1) Lymphedema: CODE(S): I89.0 - Lymphedema, not elsewhere classified (2) Hypertension: CODE(S): I10 - Essential (primary) hypertension QUALIFIERS: Hypertension type: primary hypertension Qualified Code(s): I10 - Essential (primary) hypertension (3) Hyperlipidemia: CODE(S): E78.5 - Hyperlipidemia, unspecified QUALIFIERS: Hyperlipidemia type: mixed hyperlipidemia Qualified Code(s): E78.2 - Mixed hyperlipidemia (4) History of DVT (deep vein thrombosis): CODE(S): Z86.718 - Personal history of other venous thrombosis and embolism (5) Venous insufficiency (chronic) (peripheral): CODE(S): I87.2 - Venous insufficiency (chronic) (peripheral) (6) Venous ulcer of left lower extremity with varicose veins: CODE(S): I83.029 - Varicose veins of left lower extremity with ulcer of unspecified site (7) Edema: CODE(S): R60.9 - Edema, unspecified QUALIFIERS: Edema type: unspecified Qualified Code(s): R60.9 - Edema, unspecified (8) 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 At home wound-care instructions: Will use Circaid compression garments with Fibracol to ulcers and cover with super absorber and kerlix to right LE and left LE changed every day. Due to his chronic lymphedema and being unable to don traditional compression stockings and the presence of venous ulcers on his LE b/l, it is medically necessary for him to have Circaid compression garments. He is using Circaid compression to both legs. I suspect he is not very compliant with his lymphedema pumps and not getting adequate compression with tubigrips and Circaids. Due to the delayed progress in wound healing of his venous ulcers, we discussed applying for advanced wound healing product for healing his ulcer. Due to the size of his ulcer, Theraskin application approval was requested from his insurance as it is medically necessary for salvaging his limb and healing his ulcer. He underwent 2 applications of Theraskin to this ulcer. Since application of Theraskin he had much improvement in epithelialization of his ulcer even tho ugh the overall size is not significantly changed there was progress. He is using Circaid compression wraps. Off-loading: The patient was instructed to avoid pressure and friction on the affected areas. Reposition every 2 hours at minimum. Avoid prolonged standing and/or dangling of legs. When seated, feet should be elevated at chest level. Frequent ambulation is encouraged. Encouraged lymphedema pump use. Diet: Patient encouraged to increase protein intake while taking caution to avoid high carbohydrate and/or sugar intake. Labs/cultures/imaging: Wound culture showed Pseudomonas, Escherichia hermannii, Raoultella planticola, Vancomycin Resist. E. faecalis, Alcaligenes faecalis ssp faeca, Staphylococcus cohnii urealyti and anaerobic bacteria on 06/15/24 and he completed on Levofloxacin and Augmentin. Wound culture taken today on right lateral ulcer which showed Raoultella planticola, Staph hemolyticus, staph epidermidis and morganella morganii but no anaeroobic bacteria, Levofloxacin and doxycyline were prescribed based on culture results. Labs ordered 10/19/2024. Vitamin D was low A1C 5.4% Wound culture from 12/07/24 was positive for Providencia stuartii, Vancomycin resistant E. Faecalis, Corynebacterium striatum and completed Augmentin orally. Follow-up: Return in 1 week for wound care follow up and have dressing changed by home health Mondays. Return sooner or report to the emergency room should symptoms worsen, or new symptoms arise. Note: [employer] speech recognition nursery supervisor software was used to create portions of this document. Sound-alike and misspelled words, as well as other nursery supervisor errors may be contained in the documentation.
--- NOTE | 2025-05-31 15:51 | ECHOD_ITS ---
Reason For Study Reason For Study: EDEMA, MURMUR Procedure This was a 2D Doppler, Color Flow transthoracic echocardiogram. Exam performed in department. Left Ventricle Normal LV size. The estimated ejection fraction is 65 %. No evidence for diastolic dysfunction. No regional wall motion abnormalities noted. Right Ventricle Normal RV size. Normal systolic function. Atria The left atrium is moderately enlarged. Normal right atrium. No doppler evidence for ASD. Mitral Valve There is no mitral valve stenosis. Mild (1+) mitral valve insufficiency. Tricuspid Valve There is no tricuspid stenosis. Unable to estimate RV systolic pressure due to inadequate jet, pulmonary artery pressure probably normal. Aortic Valve Trisinus/trileaflet aortic valve. Moderate diffuse aortic valve thickening. Moderate aortic stenosis. Trivial aortic valve insufficiency. Pulmonic Valve There is no pulmonic valvular stenosis. Trivial pulmonic valve insufficiency. Great Vessels Normal sized aortic root. Pericardium/Pleural No pericardial effusion. MMode/2D Measurements & Calculations LVIDd: 4.6 cm IVSd: 1.5 cm Ao root diam: 3.7 cm LVIDs: 3.0 cm LVPWd: 1.1 cm RVDd: 3.9 cm FS: 33.1 % LAV(MOD-bp): 85.4 ml LVAd ap4: 32.4 cm2 SV(MOD-sp4): 62.9 ml LAV(MOD-bp) Indexed: 39.8 ml/m2 LVLd ap4: 8.4 cm SI(MOD-sp4): 29.3 ml/m2 LAV(MOD-sp2): 84.7 ml EDV(MOD-sp4): 99.6 ml LAV(MOD-sp4): 84.7 ml EDV(sp4-el): 105.5 ml LVAs ap4: 17.4 cm2 LVLs ap4: 6.9 cm ESV(MOD-sp4): 36.8 ml ESV(sp4-el): 37.1 ml EF(MOD-sp4): 63.1 % EF(sp4-el): 64.8 % SV(sp4-el): 68.4 ml LA A4 area: 24.8 cm2 LA dimension(2D): 5.3 cm RA A4 area: 14.6 cm2 TAPSE: 2.2 cm Time Measurements MV dec time: 0.18 sec Doppler Measurements & Calculations MV E max tyson: 85.7 cm/sec Lat Peak E' Tyson: 8.0 cm/sec Med Peak E' Tyson: 13.9 cm/sec MV A max tyson: 64.9 cm/sec E/E' lat: 10.7 E/E' med: 6.1 MV E/A: 1.3 MV V2 max: 87.2 cm/sec MV P1/2t max tyson: 81.8 cm/sec Ao V2 max: 317.1 cm/sec MV max P.0 mmHg MV P1/2t: 54.9 msec Ao max P.4 mmHg MV V2 mean: 50.5 cm/sec Ao V2 mean: 227.6 cm/sec MV mean P.2 mmHg MV dec slope: 436.3 cm/sec2 Ao mean P.1 mmHg MV V2 VTI: 24.7 cm MVA(P1/2t): 4.0 cm2 Ao V2 VTI: 78.5 cm AV (velocity ratio): 0.34 LV V1 max: 105.5 cm/sec PA V2 max: 102.1 cm/sec LV V1 max P.5 mmHg LV V1 mean P.6 mmHg LV V1 mean: 76.4 cm/sec LV V1 VTI: 26.7 cm ECHO/Echo Complete Interpretation Summary The estimated ejection fraction is 65 %. No evidence for diastolic dysfunction. The left atrium is moderately enlarged. Mild (1+) mitral valve insufficiency. Trivial aortic valve insufficiency. Moderate aortic stenosis. Ordering Physician: Patricia Garcia Referring Physician: Patricia Garcia Performed By: Dawn Iraheta, MIKAL, RVT
== END | disposition home or self-care (01) ==
LOC: CVS 15:50
PROVIDERS: PCP Family Medicine; Referring Provider Family Medicine; Visit Provider Family Medicine
DX: R60.9 Edema, unspecified (principal); R01.1 Cardiac murmur, unspecified
CPT/HCPCS: 93306

== ENCOUNTER → 2025-06-04 | Outpatient (CLI) | payer MEDICARE, OTHER, SELFPAY ==
[2025-06-04 15:45] LABS: PSA,Total- Diagnostic 9.82 ng/mL (0.00-4.00)
== END | disposition home or self-care (01) ==
LOC: LAB 14:41
PROVIDERS: PCP Family Medicine; Referring Provider Nurse Practitioner; Visit Provider Nurse Practitioner
DX: C61 Malignant neoplasm of prostate (principal)
CPT/HCPCS: 36415; 84153

== ENCOUNTER → 2025-06-11 | Outpatient (CLI) | payer MEDICARE, OTHER, SELFPAY | END | disposition home or self-care (01) | LOC: LABSPEC 15:28 → HHLAB 15:29 | PROVIDERS: PCP Family Medicine | DX: I83.028 Varicose veins of left lower extremity with ulcer other part of lower leg (principal) ==

== ENCOUNTER 2025-07-05 11:30 | Outpatient (RCR) | payer MEDICARE, OTHER, SELFPAY ==
[2025-06-14 11:49] VITALS: BP 119/69; PULSE 60; RESP 18; TEMP 36
--- NOTE | 2025-06-14 13:57 | PCM.WC.PN ---
History of Present Illness Date of Service: 06/14/25 Chief Complaint: venous ulcers of left lower extremity and right lower extremity History of Wound: Mauricio is a 69 yo gentleman who is here today for evaluation of ulcers to to his bilateral lower legs. He has been treated multiple times in the past at the wound healing center for similar ulcers. The left LE ulcer started after he developed increased swelling and blisters of left leg in October and the right leg started sometime at the end of October. He was seen at PCP's office a culture was taken and it was resistant to several antibiotics. He was treated initially with Levaquin but had myalgias and then was treated with doxycycline which he finished 2 days ago. He denies improvement and is having swelling to his left calf and thigh. He has been having swelling to both lower extremities for many years and it has worsened over the last few months. He has not been compliant with compression. He has had increased pain especially in the left leg. He has clear yellow drainage and redness without odor or warmth. He is anti-coagulated on coumadin. He has been washing with Dial soap and witch ifrah. He had been using Collagen at times and using Calcium Alginate and covering with ABD pads during October. He was treated with 3M compression and Aquacel Ag. He was referred to the wound center for ongoing treatment. His ulcers have moderate to heavy drainage. He was in the hospital from 11/30/22 until 12/09/22 for treatment of cellulitis and edema. He underwent treatment with Vancomycin and IV lasix and compression. Discharged on 12/09/22. He returned to his assisted living apartment on Tuesday12/21/22. Wound culture from 12/07/24 was positive for Providencia stuartii, Vancomycin resistant E. Faecalis, Corynebacterium striatum and completed Augmentin orally. His edema is better this week and he is tolerating Circaid compression. 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 He continues to use his lymphedema pumps but continues to have pain with use of these pumps. 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 Subjective Subjective Mauricio is a 69-year-old male with longstanding history of chronic venous ulceration to the left lower extremity and a right lower extremity venous ulcer that is nearly circumferential. There has been small improvement since his last visit. His edema is stable today. He is more compliant with elevation but still is not compliant with compression pump frequency due to pain with use of pumps. He has been applying KATE wraps over his Circaids for extra compression. Wound culture from 12/07/24 was positive for Providencia stuartii, Vancomycin resistant E. Faecalis, Corynebacterium striatum and completed Augmentin orally. His edema is better this week and he is tolerating Circaid compression. 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 He continues to use his lymphedema pumps but continues to have pain with use of these pumps. 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 Objective Data Objective Data Vital Signs: Vital Signs Temp Pulse Resp BP O2 Del Method 96.8 F L 60 18 119/69 Room Air 06/14/25 11:49 06/14/25 11:49 06/14/25 11:49 06/14/25 11:49 06/14/25 11:49 Oxygen Delivery Method Room Air Physical Exam Const alert, oriented x3 and no apparent distress General Appearance: cooperative and comfortable HEENT normocephalic and head/scalp atraumatic Lymph Lymphatic: lymphedema moderate Resp normal respiratory effort Effort and Inspection: able to speak in complete sentences Cardio regular rate and regular rhythm Extremity Extremity Narrative: His ulcers are painful and the right lower leg remains more swollen than his left but there is good granulation tissue throughout and mild amount of slough that is nearly completely removed post - debridement, edges of ulcers are beveled without rolled borders bilaterally General Extremity: edema bilateral lower extremity Details: severe Skin General Skin Exam: venous stasis and dermatitis Wounds: wounds noted Wound Narrative: as in clinical panel, + devitalized tissue, there is increased depth, + granulation tissue bilateral ulcer with good granulation and moderate slough prior to debridement and minimal post debridement Psych mental status grossly normal, thought process normal, cooperative and affect normal Debridement Note Debridement Note Wound debrided: left medial LE ulcer Laterality: Left Type of Debridement: Excisional debridement Anesthesia Used: 5% Lidocaine Gel and Cetacaine Depth: Down to and including healthy tissue and in the subcutaneous layer Percentage of wound debrided: 100 Instrument Used: - (Misonix ultrasonic debridement) Tissue Removed: Yellow slough, devitalized tissue Severity: Fat Layer Exposed Amount of bleeding with debridement: Mild Bleeding Controlled with: Compression and gauze Patient tolerated procedure: Patient tolerated procedure well Post-Debridement Measurements and Additional Note: Post-Debridement Measurements/Treatment WC - Nurse 1 - General Ulcer Assessment Start: 06/14/25 11:48 Freq: Status: Active Protocol: ONDINA Activity Type Activity Date Activity User E-sign Co-sign Detail Recorded Client Recorded Date Recorded By Document 06/14/25 11:49 ALEX [id number] 06/14/25 11:59 KW 06/14/25 11:49 WC - Today's Visit Information Type of service Follow-up Visit (Physician/COURT MANAGER ) Arrival Mode Ambulatory, Walker Patient Identification Verified (Name & Yes ) Vital Signs Temperature (97.8 F-99.1 F) 96.8 F L Temperature Source Temporal Pulse Rate (60-100) 60 Pulse Location Monitor Respiratory Rate (12-18) 18 Respiratory rate source Observation Oxygen Delivery Method Room Air Blood Pressure (90/60-120/80) 119/69 Blood Pressure Mean (mm Hg) 85 Source Monitor Position Semi-Fowlers Blood Pressure Location Right Arm History Since Last Visit- (Skip if this is Patient's initial visit) Have you changed medications since your No last visit? Any new allergies or adverse reactions No Had a fall/change in ADL's that may No increase risk of falls Signs or symptoms of abuse and/or No neglect since last visit Have you been in the hospital since your No last visit? Has dressing in place as prescribed Yes Has compression in place as prescribed Yes Has offloadiing in place as prescribed N/A Experienced any changes in pain level or No management Left Footwear Regular Shoe Right Footwear Regular Shoe Pain Scale: 0-10 Numeric Is Patient Pain Free? No BLE -Alleviating Factors/Interventions Medication, Inactivity/ Resting DEBBIE - Nurse 1 - General Ulcer Measurement Start: 06/14/25 11:48 Freq: Status: Active Protocol: Activity Type Activity Date Activity User E-sign Co-sign Detail Recorded Client Recorded Date Recorded By Document 06/14/25 11:49 [id number] 06/14/25 11:59 KW 06/14/25 11:49 Wound Center Nurse 1 #24 Left Lateral Leg -Exudate Amt Large -Exudate Type Serosanguineous #22 R Medial/Lateral leg -Current Size (cm) - Length 10 -Current Size (cm) - Width 27.2 -Current Size (cm) - Depth 0.1 -Total Square Cm 272.0 -Date of Last Picture (Recall this 06/14/25 field) -Exudate Amt Large -Exudate Type Serosanguineous -Wound Margin Distinct, Outline Attached -Granulation Amt Medium (34-66%) -Granulation Quality Red -Necrosis Amt Small (1-33%) -Necrotic Tissue Type Adherent Slough -Texture (Marie-wound Skin Appearance) Assessed -Moisture (Marie-wound Skin Appearance) Assessed,Dry/ Scaly -Color (Marie-wound Skin Appearance) Assessed, Hemosiderin Staining -Temperature (Marie-wound Skin No Abnormality Appearance) (Pt Warm) -Tenderness on Palpation (Marie-wound No Skin Appearance) -Ulcer Cleansing Soap and Water -Foul Odor after Cleansing No -Anesthetic Used 5% Lidocaine Gel #18 Left medial LE cluster -Current Size (cm) - Length 7 -Current Size (cm) - Width 14 -Current Size (cm) - Depth 0.1 -Total Square Cm 98 -Exudate Amt Large -Exudate Type Serosanguineous -Wound Margin Distinct, Outline Attached -Granulation Amt Large (67-100%) -Granulation Quality Red -Necrosis Amt Small (1-33%) -Necrotic Tissue Type Adherent Slough -Texture (Marie-wound Skin Appearance) Assessed -Moisture (Marie-wound Skin Appearance) Assessed -Color (Marie-wound Skin Appearance) Assessed, Hemosiderin Staining -Temperature (Marie-wound Skin No Abnormality Appearance) (Pt Warm) -Tenderness on Palpation (Marie-wound No Skin Appearance) -Ulcer Cleansing Soap and Water -Foul Odor after Cleansing No -Anesthetic Used 5% Lidocaine Gel Right Calf (cm) 41.5 Right Ankle (cm) 29 Left Calf (cm) 41 Left Ankle (cm) 29.5 WC - Nurse 2 - General Ulcer CM Notes Start: 06/14/25 11:48 Freq: Status: Active Protocol: Activity Type Activity Date Activity User E-sign Co-sign Detail Recorded Client Recorded Date Recorded By Document 06/14/25 13:23 [id number] 06/14/25 13:36 06/14/25 13:23 Wound Center Nurse 2 #22 R Medial/Lateral leg -Time 13:24 -Correct Patient Yes -Correct Side, Site, Position Yes -Correct Procedure Yes -Procedure Performed Yes -Type of Procedure Debridement -Clinical Debridement Subcutaneous -Tissue Removed Subcutaneous -Post Debridement (cm) - Length 10.5 -Post Debridement (cm) - Width 25.5 -Post Debridement (cm) - Depth 0.1 -Total Square (Post) (cm) 267.75 -Area of Debridement (cm) - Length 10.5 -Area of Debridement (cm) - Width 25.5 -Total Square (Area) (cm) 267.75 -Tunneling No -Undermining/Tunneling No -Circular Undermining No -Wound/Ulcer Outcome Not Healed -Ulcer Cleansing Rinsed/ Irrigated with Saline -Foul Odor after Cleansing No -Bioengineered Tissue No -Bleeding Controlled with Pressure -Treatment Response Procedure Tolerated Well -Offloading No -Debridement - Subq, 1st 20sq cm No #18 Left medial LE cluster -Time 13:25 -Correct Patient Yes -Correct Side, Site, Position Yes -Correct Procedure Yes -Procedure Performed Yes -Type of Procedure Debridement -Clinical Debridement Subcutaneous -Tissue Removed Subcutaneous -Post Debridement (cm) - Length 7.5 -Post Debridement (cm) - Width 12.5 -Post Debridement (cm) - Depth 0.1 -Total Square (Post) (cm) 93.75 -Area of Debridement (cm) - Length 7.5 -Area of Debridement (cm) - Width 12.5 -Total Square (Area) (cm) 93.75 -Tunneling No -Undermining/Tunneling No -Circular Undermining No -Wound/Ulcer Outcome Not Healed -Ulcer Cleansing Rinsed/ Irrigated with Saline -Foul Odor after Cleansing No -Bioengineered Tissue No -Bleeding Controlled with Pressure -Treatment Response Procedure Tolerated Well -Offloading No -Debridement - Subq, 1st 20sq cm Yes -Debridement, SubQ, ea addt'l 20sq cm 13 or part thereof Pain Scale: 0-10 Numeric Is Patient Pain Free? Yes WC - Nurse 3 - General Ulcer D/C NN Start: 06/14/25 11:48 Freq: Status: Active Protocol: Activity Type Activity Date Activity User E-sign Co-sign Detail Recorded Client Recorded Date Recorded By Document 06/14/25 13:42 KW [id number] 06/14/25 13:49 KW Edit Result 06/14/25 13:42 KW (1) [id number] 06/14/25 13:50 KW (1) #22 R Medial/Lateral leg - Fibracol Plus 4x4 2 => 3 - Optilok 6.5x10 1 => 2 06/14/25 13:42 Wound Care Center Nurse 3 #22 R Medial/Lateral leg -Ulcer Cleansing Rinsed/ Irrigated with Saline -Primary Dressing Applied Fibracol Plus 4x4,Optilok 6. 5x10 -Primary Dressing Covered/Secured with Dry Gauze & Roll Gauze -Fibracol Plus 4x4 3 -Optilok 6.5x10 2 #18 Left medial LE cluster -Primary Dressing Applied Optilok 6.5x10 -Other Dressing FIBRACOL -Primary Dressing Covered/Secured with Dry Gauze & Roll Gauze -Optilok 6.5x10 1 BLE -Stockings Yes: CIRCAIDS Treatment Response Procedure Tolerated Well Pain Scale: 0-10 Numeric Is Patient Pain Free? Yes WC - Visit Discharge Discharge Condition Stable Ambulatory Status Ambulatory Transportation [facility] transport Medication Reconcilliation completed & No provided to patient/care provider Clinical Summary of Care Provided Yes Additional Wound Wound debrided: right medial leg Laterality: Right Type of Debridement: Excisional debridement Anesthesia Used: 4% Lidocaine Solution, 5% Lidocaine Gel and Cetacaine Depth: Down to and including healthy tissue and in the subcutaneous layer Percentage of wound debrided: 100 Instrument Used: - (Misonix ultrasonic debridement) Tissue Removed: Yellow slough, devitalized tissue Severity: Fat Layer Exposed Amount of bleeding with debridement: Mild Bleeding Controlled with: Compression and gauze Patient tolerated procedure: Patient tolerated procedure well Assessment/Plan Assessment/Plan (1) Lymphedema: CODE(S): I89.0 - Lymphedema, not elsewhere classified (2) Hypertension: CODE(S): I10 - Essential (primary) hypertension QUALIFIERS: Hypertension type: primary hypertension Qualified Code(s): I10 - Essential (primary) hypertension (3) Hyperlipidemia: CODE(S): E78.5 - Hyperlipidemia, unspecified QUALIFIERS: Hyperlipidemia type: mixed hyperlipidemia Qualified Code(s): E78.2 - Mixed hyperlipidemia (4) History of DVT (deep vein thrombosis): CODE(S): Z86.718 - Personal history of other venous thrombosis and embolism (5) Venous insufficiency (chronic) (peripheral): CODE(S): I87.2 - Venous insufficiency (chronic) (peripheral) (6) Venous ulcer of left lower extremity with varicose veins: CODE(S): I83.029 - Varicose veins of left lower extremity with ulcer of unspecified site (7) Edema: CODE(S): R60.9 - Edema, unspecified QUALIFIERS: Edema type: unspecified Qualified Code(s): R60.9 - Edema, unspecified (8) 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 At home wound-care instructions: Will continue to use Circaid compression garments with Fibracol to ulcers and cover with super absorber and kerlix to right LE and left LE changed daily. Due to his chronic lymphedema and being unable to don traditional compression stockings and the presence of venous ulcers on his LE b/l, it is medically necessary for him to have Circaid compression garments. He is using Circaid compression to both legs. I suspect he is not very compliant with his lymphedema pumps and not getting adequate compression with tubigrips and Circaids. Due to the delayed progress in wound healing of his venous ulcers, we discussed applying for advanced wound healing product for healing his ulcer. Due to the size of his ulcer, [employer]ask[employer] application approval was requested from his insurance as it is medically necessary for salvaging his limb and healing his ulcer. He has previously had treatment with Theraskin to his left lower leg with improvement in October 2023. Insurance only allowed 3 applications at that time. It is medically necessary for application of Theraskin to his right lower extremity ulcer to salvage his limb and heal his ulcer. He is using Circaid compression wraps. Off-loading: The patient was instructed to avoid pressure and friction on the affected areas. Reposition every 2 hours at minimum. Avoid prolonged standing and/or dangling of legs. When seated, feet should be elevated at chest level. Frequent ambulation is encouraged. Encouraged lymphedema pump use. Diet: Patient encouraged to increase protein intake while taking caution to avoid high carbohydrate and/or sugar intake. Labs/cultures/imaging: Wound culture showed Pseudomonas, Escherichia hermannii, Raoultella planticola, Vancomycin Resist. E. faecalis, Alcaligenes faecalis ssp faeca, Staphylococcus cohnii urealyti and anaerobic bacteria on 06/15/24 and he completed on Levofloxacin and Augmentin. Wound culture taken today on right lateral ulcer which showed Raoultella planticola, Staph hemolyticus, staph epidermidis and morganella morganii but no anaeroobic bacteria, Levofloxacin and doxycyline were prescribed based on culture results. Labs ordered 10/19/2024. Vitamin D was low A1C 5.4% Wound culture from 12/07/24 was positive for Providencia stuartii, Vancomycin resistant E. Faecalis, Corynebacterium striatum and completed Augmentin orally. Follow-up: Return in 1 week for wound care follow up and have dressing changed by home health Mondays. Return sooner or report to the emergency room should symptoms worsen, or new symptoms arise. Note: [employer] speech recognition creative recruiter software was used to create portions of this document. Sound-alike and misspelled words, as well as other creative recruiter errors may be contained in the documentation.
[2025-06-21 11:23] VITALS: BP 166/89; PULSE 66; RESP 18; TEMP 36.3
--- NOTE | 2025-06-21 13:16 | PN.PCM_ITS ---
History of Present Illness Date of Service: 06/21/25 Chief Complaint: venous ulcers of left lower extremity and right lower extremity History of Wound: Mauricio is a 69 yo gentleman who is here today for evaluation of ulcers to to his bilateral lower legs. He has been treated multiple times in the past at the wound healing center for similar ulcers. The left LE ulcer started after he developed increased swelling and blisters of left leg in October and the right leg started sometime at the end of October. He was seen at PCP's office a culture was taken and it was resistant to several antibiotics. He was treated initially with Levaquin but had myalgias and then was treated with doxycycline which he finished 2 days ago. He denies improvement and is having swelling to his left calf and thigh. He has been having swelling to both lower extremities for many years and it has worsened over the last few months. He has not been compliant with compression. He has had increased pain especially in the left leg. He has clear yellow drainage and redness without odor or warmth. He is anti- coagulated on coumadin. He has been washing with Dial soap and witch ifrah. He had been using Collagen at times and using Calcium Alginate and covering with ABD pads during October. He was treated with 3M compression and Aquacel Ag. He was referred to the wound center for ongoing treatment. His ulcers have moderate to heavy drainage. He was in the hospital from 11/30/22 until 12/09/22 for treatment of cellulitis and edema. He underwent treatment with Vancomycin and IV lasix and compression. Discharged on 12/09/22. He returned to his assisted living apartment on Tuesday12/21/22. Wound culture from 12/07/24 was positive for Providencia stuartii, Vancomycin resistant E. Faecalis, Corynebacterium striatum and completed Augmentin orally. His edema is better this week and he is tolerating Circaid compression. 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 He continues to use his lymphedema pumps but continues to have pain with use of these pumps. 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 Subjective Subjective Mauricio is a 70-year-old male with longstanding history of chronic venous ulceration to the left lower extremity and a right lower extremity venous ulcer that is nearly circumferential. There has been small improvement since his last visit. His edema is stable today. He is more compliant with elevation but still is not compliant with compression pump frequency due to pain with use of pumps. He has been applying KATE wraps over his Circaids for extra compression. Wound culture from 12/07/24 was positive for Providencia stuartii, Vancomycin resistant E. Faecalis, Corynebacterium striatum and completed Augmentin orally. His edema is better this week and he is tolerating Circaid compression. 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 He continues to use his lymphedema pumps but continues to have pain with use of these pumps. 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 Objective Data Objective Data Vital Signs: Vital Signs Temp Pulse Resp BP O2 Del Method 97.4 F L 66 18 166/89 H Room Air 06/21/25 11:23 06/21/25 11:23 06/21/25 11:23 06/21/25 11:23 06/14/25 11:49 Oxygen Delivery Method Room Air Physical Exam Const alert, oriented x3 and no apparent distress General Appearance: cooperative and comfortable HEENT normocephalic and head/scalp atraumatic Lymph Lymphatic: lymphedema moderate Resp normal respiratory effort Effort and Inspection: able to speak in complete sentences Cardio regular rate and regular rhythm Extremity Extremity Narrative: His ulcers are painful and the right lower leg remains more swollen than his left but there is good granulation tissue throughout and mild amount of slough that is nearly completely removed post - debridement, edges of ulcers are beveled without rolled borders bilaterally General Extremity: edema bilateral lower extremity Details: severe Skin General Skin Exam: venous stasis and dermatitis Wounds: wounds noted Wound Narrative: as in clinical panel, + devitalized tissue, there is decreased depth, + granulation tissue bilateral ulcer with good granulation and moderate slough prior to debridement and minimal post debridement Psych mental status grossly normal, thought process normal, cooperative and affect normal Debridement Note Debridement Note Wound debrided: left medial LE ulcer Laterality: Left Type of Debridement: Excisional debridement Anesthesia Used: 5% Lidocaine Gel and Cetacaine Depth: Down to and including healthy tissue and in the subcutaneous layer Percentage of wound debrided: 100 Instrument Used: - (Misonix ultrasonic debridement) Tissue Removed: Yellow slough, devitalized tissue Severity: Fat Layer Exposed Amount of bleeding with debridement: Mild Bleeding Controlled with: Compression and gauze Patient tolerated procedure: Patient tolerated procedure well Post-Debridement Measurements and Additional Note: Post-Debridement Measurements/Treatment - Nurse 1 - General Ulcer Assessment Start: 06/14/25 11:48 Freq: Status: Active Protocol: ONDINA Activity Type Activity Date Activity User E-sign Co-sign Detail Recorded Client Recorded Date Recorded By Document 06/14/25 11:49 KW [id number] 06/14/25 11:59 KW Document 06/21/25 11:23 RB [id number] 06/21/25 11:32 RB 06/14/25 06/21/25 11:49 11:23 - Today's Visit Information Type of service Follow-up Visit Follow-up Visit (Physician/BILINGUAL TEACHER AIDE (Physician/BILINGUAL TEACHER AIDE ) ) Arrival Mode Ambulatory, Ambulatory, Walker Walker Transfer Assistance Manual Patient Identification Verified (Name & Yes Yes ) Patient Requires Transmission-Based No Precautions Vital Signs Temperature (97.8 F-99.1 F) 96.8 F L 97.4 F L Temperature Source Temporal Temporal Pulse Rate (60-100) 60 66 Pulse Location Monitor Monitor Respiratory Rate (12-18) 18 18 Respiratory rate source Observation Observation Oxygen Delivery Method Room Air Blood Pressure (90/60-120/80) 119/69 166/89 H Blood Pressure Mean (mm Hg) 85 114 Source Monitor Monitor Position Semi-Fowlers Semi-Fowlers Blood Pressure Location Right Arm Left Arm History Since Last Visit- (Skip if this is Patient's initial visit) Have you changed medications since your No No last visit? Any new allergies or adverse reactions No No Had a fall/change in ADL's that may No No increase risk of falls Signs or symptoms of abuse and/or No No neglect since last visit Have you been in the hospital since your No No last visit? Has dressing in place as prescribed Yes Yes Has compression in place as prescribed Yes Yes Has offloadiing in place as prescribed N/A N/A Experienced any changes in pain level or No No management Left Footwear Regular Shoe Regular Shoe Right Footwear Regular Shoe Regular Shoe Pain Scale: 0-10 Numeric Is Patient Pain Free? No Yes BLE -Alleviating Factors/Interventions Medication, Inactivity/ Resting WC - Nurse 1 - General Ulcer Measurement Start: 06/14/25 11:48 Freq: Status: Active Protocol: Activity Type Activity Date Activity User E-sign Co-sign Detail Recorded Client Recorded Date Recorded By Document 06/14/25 11:49 KW [id number] 06/14/25 11:59 KW Document 06/21/25 11:23 RB [id number] 06/21/25 11:32 RB 06/14/25 06/21/25 11:49 11:23 Wound Center Nurse 1 #24 Left Lateral Leg -Exudate Amt Large -Exudate Type Serosanguineous #22 R Medial/Lateral leg -Combined with other wound No -Current Size (cm) - Length 10 10.5 -Current Size (cm) - Width 27.2 25 -Current Size (cm) - Depth 0.1 0.1 -Total Square Cm 272.0 262.5 -Date of Last Picture (Recall this 06/14/25 field) -Photo Taken Yes -Epithelialization Small 1-33% -Tunneling No -Undermining/Tunneling No -Circular Undermining No -Exudate Amt Large Medium -Exudate Type Serosanguineous Serosanguineous -Wound Margin Distinct, Distinct, Outline Outline Attached Attached -Granulation Amt Medium (34-66%) Medium (34-66%) -Granulation Quality Red Grannis -Slough/Fibrin Yes -Necrosis Amt Small (1-33%) Medium (34-66%) -Necrotic Tissue Type Adherent Slough Adherent Slough -Structure Exposed N/A -Texture (Marie-wound Skin Appearance) Assessed Assessed, Excoriation -Moisture (Marie-wound Skin Appearance) Assessed,Dry/ Assessed, Scaly Maceration -Color (Marie-wound Skin Appearance) Assessed, Assessed Hemosiderin Staining -Temperature (Marie-wound Skin No Abnormality No Abnormality Appearance) (Pt Warm) (Pt Warm) -Tenderness on Palpation (Marie-wound No No Skin Appearance) -Ulcer Cleansing Soap and Water Wound Cleanser -Foul Odor after Cleansing No No -Anesthetic Used 5% Lidocaine 5% Lidocaine Gel Gel #18 Left medial LE cluster -Combined with other wound No -Current Size (cm) - Length 7 7.5 -Current Size (cm) - Width 14 15 -Current Size (cm) - Depth 0.1 0.1 -Total Square Cm 98 112.5 -Photo Taken Yes -Tunneling No -Undermining/Tunneling No -Circular Undermining No -Exudate Amt Large Large -Exudate Type Serosanguineous Serosanguineous -Wound Margin Distinct, Distinct, Outline Outline Attached Attached -Granulation Amt Large (67-100%) Medium (34-66%) -Granulation Quality Red Grannis -Slough/Fibrin Yes -Necrosis Amt Small (1-33%) Medium (34-66%) -Necrotic Tissue Type Adherent Slough Adherent Slough -Structure Exposed N/A -Texture (Marie-wound Skin Appearance) Assessed Assessed, Excoriation -Moisture (Marie-wound Skin Appearance) Assessed Assessed, Maceration -Color (Marie-wound Skin Appearance) Assessed, Assessed Hemosiderin Staining -Temperature (Marie-wound Skin No Abnormality No Abnormality Appearance) (Pt Warm) (Pt Warm) -Tenderness on Palpation (Marie-wound No No Skin Appearance) -Ulcer Cleansing Soap and Water Wound Cleanser -Foul Odor after Cleansing No No -Anesthetic Used 5% Lidocaine 5% Lidocaine Gel Gel Lower Limb Edema Present Yes Right Calf (cm) 41.5 Right Ankle (cm) 29 Left Calf (cm) 41 45.4 Left Ankle (cm) 29.5 30 WC - Nurse 2 - General Ulcer CM Notes Start: 06/14/25 11:48 Freq: Status: Active Protocol: Activity Type Activity Date Activity User E-sign Co-sign Detail Recorded Client Recorded Date Recorded By Document 06/14/25 13:23 [id number] 06/14/25 13:36 Document 06/21/25 11:48 [id number] 06/21/25 11:54 06/14/25 06/21/25 13:23 11:48 Wound Center Nurse 2 #22 R Medial/Lateral leg -Time 13:24 11:48 -Correct Patient Yes Yes -Correct Side, Site, Position Yes Yes -Correct Procedure Yes Yes -Procedure Performed Yes Yes -Type of Procedure Debridement Debridement -Clinical Debridement Subcutaneous Subcutaneous -Tissue Removed Subcutaneous Subcutaneous -Post Debridement (cm) - Length 10.5 10.5 -Post Debridement (cm) - Width 25.5 25.3 -Post Debridement (cm) - Depth 0.1 0.1 -Total Square (Post) (cm) 267.75 265.65 -Area of Debridement (cm) - Length 10.5 10.5 -Area of Debridement (cm) - Width 25.5 25.3 -Total Square (Area) (cm) 267.75 265.65 -Tunneling No No -Undermining/Tunneling No No -Circular Undermining No No -Wound/Ulcer Outcome Not Healed Not Healed -Ulcer Cleansing Rinsed/ Rinsed/ Irrigated with Irrigated with Saline Saline -Foul Odor after Cleansing No No -Bioengineered Tissue No No -Bleeding Controlled with Pressure Pressure -Treatment Response Procedure Procedure Tolerated Well Tolerated Well -Offloading No No -Debridement - Subq, 1st 20sq cm No No #18 Left medial LE cluster -Time 13:25 11:49 -Correct Patient Yes Yes -Correct Side, Site, Position Yes Yes -Correct Procedure Yes Yes -Procedure Performed Yes Yes -Type of Procedure Debridement Debridement -Clinical Debridement Subcutaneous Subcutaneous -Tissue Removed Subcutaneous Subcutaneous -Post Debridement (cm) - Length 7.5 7.4 -Post Debridement (cm) - Width 12.5 13.0 -Post Debridement (cm) - Depth 0.1 0.1 -Total Square (Post) (cm) 93.75 96.20 -Area of Debridement (cm) - Length 7.5 7.4 -Area of Debridement (cm) - Width 12.5 13.0 -Total Square (Area) (cm) 93.75 96.20 -Tunneling No No -Undermining/Tunneling No No -Circular Undermining No No -Wound/Ulcer Outcome Not Healed Not Healed -Ulcer Cleansing Rinsed/ Rinsed/ Irrigated with Irrigated with Saline Saline -Foul Odor after Cleansing No No -Bioengineered Tissue No No -Bleeding Controlled with Pressure Pressure -Treatment Response Procedure Procedure Tolerated Well Tolerated Well -Offloading No No -Debridement - Subq, 1st 20sq cm Yes Yes -Debridement, SubQ, ea addt'l 20sq cm 13 18 or part thereof Pain Scale: 0-10 Numeric Is Patient Pain Free? Yes Yes WC - Nurse 3 - General Ulcer D/C NN Start: 06/14/25 11:48 Freq: Status: Active Protocol: Activity Type Activity Date Activity User E-sign Co-sign Detail Recorded Client Recorded Date Recorded By Document 06/14/25 13:42 KW [id number] 06/14/25 13:49 KW Edit Result 06/14/25 13:42 KW (1) [id number] 06/14/25 13:50 KW Document 06/21/25 12:00 RB [id number] 06/21/25 12:02 RB (1) #22 R Medial/Lateral leg - Fibracol Plus 4x4 2 => 3 - Optilok 6.5x10 1 => 2 06/14/25 06/21/25 13:42 12:00 Wound Care Center Nurse 3 #22 R Medial/Lateral leg -Ulcer Cleansing Rinsed/ Rinsed/ Irrigated with Irrigated with Saline Saline -Primary Dressing Applied Fibracol Plus Fibracol Plus 4x4,Optilok 6. 4x4,Optilok 6. 5x10 5x10 -Primary Dressing Covered/Secured with Dry Gauze & Roll Gauze -Fibracol Plus 4x4 3 1 -Optilok 6.5x10 2 1 #18 Left medial LE cluster -Ulcer Cleansing Rinsed/ Irrigated with Saline -Primary Dressing Applied Optilok 6.5x10 Fibracol Plus 4x4,Optilok 6. 5x10 -Other Dressing FIBRACOL -Primary Dressing Covered/Secured with Dry Gauze & Dry Gauze & Roll Gauze Roll Gauze, Secured with Tape -Fibracol Plus 4x4 1 -Optilok 6.5x10 1 2 BLE -Stockings Yes: CIRCAIDS Yes: circaids Treatment Response Procedure Tolerated Well Pain Scale: 0-10 Numeric Is Patient Pain Free? Yes Yes - Visit Discharge Discharge Condition Stable Ambulatory Status Ambulatory Transportation [facility] transport Medication Reconcilliation completed & No provided to patient/care provider Clinical Summary of Care Provided Yes Additional Wound Wound debrided: right medial leg Laterality: Right Type of Debridement: Excisional debridement Anesthesia Used: 4% Lidocaine Solution, 5% Lidocaine Gel and Cetacaine Depth: Down to and including healthy tissue and in the subcutaneous layer Percentage of wound debrided: 100 Instrument Used: - (Misonix ultrasonic debridement) Tissue Removed: Yellow slough, devitalized tissue Severity: Fat Layer Exposed Amount of bleeding with debridement: Mild Bleeding Controlled with: Compression and gauze Patient tolerated procedure: Patient tolerated procedure well Assessment/Plan Assessment/Plan (1) Lymphedema: CODE(S): I89.0 - Lymphedema, not elsewhere classified (2) Hypertension: CODE(S): I10 - Essential (primary) hypertension QUALIFIERS: Hypertension type: primary hypertension Qualified Code(s): I10 - Essential (primary) hypertension (3) Hyperlipidemia: CODE(S): E78.5 - Hyperlipidemia, unspecified QUALIFIERS: Hyperlipidemia type: mixed hyperlipidemia Qualified Code(s): E78.2 - Mixed hyperlipidemia (4) History of DVT (deep vein thrombosis): CODE(S): Z86.718 - Personal history of other venous thrombosis and embolism (5) Venous insufficiency (chronic) (peripheral): CODE(S): I87.2 - Venous insufficiency (chronic) (peripheral) (6) Venous ulcer of left lower extremity with varicose veins: CODE(S): I83.029 - Varicose veins of left lower extremity with ulcer of unspecified site (7) Edema: CODE(S): R60.9 - Edema, unspecified QUALIFIERS: Edema type: unspecified Qualified Code(s): R60.9 - Edema, unspecified (8) 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 At home wound-care instructions: Will continue to use Circaid compression garments with Fibracol to ulcers and cover with super absorber and kerlix to right LE and left LE changed daily. Due to his chronic lymphedema and being unable to don traditional compression stockings and the presence of venous ulcers on his LE b/l, it is medically necessary for him to have Circaid compression garments. He is using Circaid compression to both legs. I suspect he is not very compliant with his lymphedema pumps and not getting adequate compression with tubigrips and Circaids. Due to the delayed progress in wound healing of his venous ulcers, we discussed applying for advanced wound healing product for healing his ulcer. Due to the size of his ulcer, Theraskin application approval was requested from his insurance as it is medically necessary for salvaging his limb and healing his ulcer. He has previously had treatment with Theraskin to his left lower leg with improvement in October 2023. Insurance only allowed 3 applications at that time. It is medically necessary for application of Theraskin to his right lower extremity ulcer to salvage his limb and heal his ulcer. He is using Circaid compression wraps. Off-loading: The patient was instructed to avoid pressure and friction on the affected areas. Reposition every 2 hours at minimum. Avoid prolonged standing and/or dangling of legs. When seated, feet should be elevated at chest level. Frequent ambulation is encouraged. Encouraged lymphedema pump use. Diet: Patient encouraged to increase protein intake while taking caution to avoid high carbohydrate and/or sugar intake. Labs/cultures/imaging: Wound culture showed Pseudomonas, Escherichia hermannii, Raoultella planticola, Vancomycin Resist. E. faecalis, Alcaligenes faecalis ssp faeca, Staphylococcus cohnii urealyti and anaerobic bacteria on 06/15/24 and he completed on Levofloxacin and Augmentin. Wound culture taken today on right lateral ulcer which showed Raoultella planticola, Staph hemolyticus, staph epidermidis and morganella morganii but no anaeroobic bacteria, Levofloxacin and doxycyline were prescribed based on culture results. Labs ordered 10/19/2024. Vitamin D was low A1C 5.4% Wound culture from 12/07/24 was positive for Providencia stuartii, Vancomycin resistant E. Faecalis, Corynebacterium striatum and completed Augmentin orally. Follow-up: Return in 1 week for wound care follow up and have dressing changed by home health Mondays. Return sooner or report to the emergency room should symptoms worsen, or new symptoms arise. Note: [employer] speech recognition printing plate setter software was used to create portions of this document. Sound-alike and misspelled words, as well as other printing plate setter errors may be contained in the documentation.
--- NOTE | 2025-06-24 09:34 | WC ---
PHOTO-LEFT MED LEG 06/21/25
--- NOTE | 2025-06-24 09:35 | WC ---
PHOTO-RIGHT MED LATERAL LEG 06/20/25
--- NOTE | 2025-06-24 15:53 | WC ---
spoke with Choco - regarding Theraskin application that is to be placed on Tuesday06/28/25. informed Swetha that it will only be for 1 leg and that they will need to continue current dressing change for the other leg
[2025-06-28 11:45] VITALS: BP 128/74; PULSE 63; RESP 18; TEMP 36.3
--- NOTE | 2025-06-28 15:24 | PN.PCM_ITS ---
History of Present Illness Date of Service: 06/28/25 Chief Complaint: venous ulcers of left lower extremity and right lower extremity History of Wound: Mauricio is a 69 yo gentleman who is here today for evaluation of ulcers to to his bilateral lower legs. He has been treated multiple times in the past at the wound healing center for similar ulcers. The left LE ulcer started after he developed increased swelling and blisters of left leg in October and the right leg started sometime at the end of October. He was seen at PCP's office a culture was taken and it was resistant to several antibiotics. He was treated initially with Levaquin but had myalgias and then was treated with doxycycline which he finished 2 days ago. He denies improvement and is having swelling to his left calf and thigh. He has been having swelling to both lower extremities for many years and it has worsened over the last few months. He has not been compliant with compression. He has had increased pain especially in the left leg. He has clear yellow drainage and redness without odor or warmth. He is anti- coagulated on coumadin. He has been washing with Dial soap and witch ifrah. He had been using Collagen at times and using Calcium Alginate and covering with ABD pads during October. He was treated with 3M compression and Aquacel Ag. He was referred to the wound center for ongoing treatment. His ulcers have moderate to heavy drainage. He was in the hospital from 11/30/22 until 12/09/22 for treatment of cellulitis and edema. He underwent treatment with Vancomycin and IV lasix and compression. Discharged on 12/09/22. He returned to his assisted living apartment on Tuesday12/21/22. Wound culture from 12/07/24 was positive for Providencia stuartii, Vancomycin resistant E. Faecalis, Corynebacterium striatum and completed Augmentin orally. His edema is better this week and he is tolerating Circaid compression. 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 He continues to use his lymphedema pumps but continues to have pain with use of these pumps. 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 Subjective Subjective Mauricio is a 70-year-old male with longstanding history of chronic venous ulceration to the left lower extremity and a right lower extremity venous ulcer that is nearly circumferential. There has been small improvement since his last visit. His edema is stable today. He is more compliant with elevation but still is not compliant with compression pump frequency due to pain with use of pumps. He has been applying KATE wraps over his Circaids for extra compression. Wound culture from 12/07/24 was positive for Providencia stuartii, Vancomycin resistant E. Faecalis, Corynebacterium striatum and completed Augmentin orally. His edema is better this week and he is tolerating Circaid compression. 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 He continues to use his lymphedema pumps but continues to have pain with use of these pumps. 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 Objective Data Objective Data Vital Signs: Vital Signs Temp Pulse Resp BP O2 Del Method 97.4 F L 63 18 128/74 H Room Air 06/28/25 11:45 06/28/25 11:45 06/28/25 11:45 06/28/25 11:45 06/28/25 11:45 Oxygen Delivery Method Room Air Physical Exam Const alert, oriented x3 and no apparent distress General Appearance: cooperative and comfortable HEENT normocephalic and head/scalp atraumatic Lymph Lymphatic: lymphedema moderate Resp normal respiratory effort Effort and Inspection: able to speak in complete sentences Cardio regular rate and regular rhythm Extremity Extremity Narrative: His ulcers are painful and the right lower leg remains more swollen than his left but there is good granulation tissue throughout and mild amount of slough that is nearly completely removed post - debridement, edges of ulcers are beveled without rolled borders bilaterally General Extremity: edema bilateral lower extremity Details: severe Skin General Skin Exam: venous stasis and dermatitis Wounds: wounds noted Wound Narrative: as in clinical panel, + devitalized tissue, there is decreased depth, + granulation tissue bilateral ulcer with good granulation and moderate slough prior to debridement and minimal post debridement Psych mental status grossly normal, thought process normal, cooperative and affect normal Debridement Note Debridement Note Wound debrided: left medial LE ulcer Laterality: Left Type of Debridement: Excisional debridement Anesthesia Used: 5% Lidocaine Gel and Cetacaine Depth: Down to and including healthy tissue and in the subcutaneous layer Percentage of wound debrided: 100 Instrument Used: - (Misonix ultrasonic debridement) Tissue Removed: Yellow slough, devitalized tissue Severity: Fat Layer Exposed Amount of bleeding with debridement: Mild Bleeding Controlled with: Compression and gauze Patient tolerated procedure: Patient tolerated procedure well Post-Debridement Measurements and Additional Note: Post-Debridement Measurements/Treatment - Nurse 1 - General Ulcer Assessment Start: 06/14/25 11:48 Freq: Status: Active Protocol: ONDINA Activity Type Activity Date Activity User E-sign Co-sign Detail Recorded Client Recorded Date Recorded By Document 06/14/25 11:49 KW [id number] 06/14/25 11:59 KW Document 06/21/25 11:23 RB [id number] 06/21/25 11:32 RB Document 06/28/25 11:45 DS [id number] 06/28/25 12:07 DS 06/14/25 06/21/25 06/28/25 11:49 11:23 11:45 - Today's Visit Information Type of service Follow-up Visit Follow-up Visit Follow-up Visit (Physician/AC/DC REWINDER (Physician/AC/DC REWINDER (Physician/AC/DC REWINDER ) ) ) Arrival Mode Ambulatory, Ambulatory, Ambulatory, Walker Walker Walker Transfer Assistance Manual Patient Identification Verified (Name & Yes Yes Yes ) Patient Requires Transmission-Based No No Precautions Safety Precautions Fall Prevention Vital Signs Temperature (97.8 F-99.1 F) 96.8 F L 97.4 F L 97.4 F L Temperature Source Temporal Temporal Temporal Pulse Rate (60-100) 60 66 63 Pulse Location Monitor Monitor Monitor Respiratory Rate (12-18) 18 18 18 Respiratory rate source Observation Observation Observation Oxygen Delivery Method Room Air Room Air Blood Pressure (90/60-120/80) 119/69 166/89 H 128/74 H Blood Pressure Mean (mm Hg) 85 114 92 Source Monitor Monitor Monitor Position Semi-Fowlers Semi-Fowlers Semi-Fowlers Blood Pressure Location Right Arm Left Arm Right Arm History Since Last Visit- (Skip if this is Patient's initial visit) Have you changed medications since your No No No last visit? Any new allergies or adverse reactions No No No Had a fall/change in ADL's that may No No No increase risk of falls Signs or symptoms of abuse and/or No No No neglect since last visit Have you been in the hospital since your No No No last visit? Has dressing in place as prescribed Yes Yes Yes Has compression in place as prescribed Yes Yes Yes Has offloadiing in place as prescribed N/A N/A N/A Experienced any changes in pain level or No No Yes management Left Footwear Regular Shoe Regular Shoe Regular Shoe Right Footwear Regular Shoe Regular Shoe Regular Shoe Pain Scale: 0-10 Numeric Is Patient Pain Free? No Yes No BLE -Description Throbbing, Aching -Intensity 9 -Duration (hours) Chronic -Pain Behavior No Change in Behavior -Alleviating Factors/Interventions Medication, Will continue Inactivity/ to monitor Resting WC - Nurse 1 - General Ulcer Measurement Start: 06/14/25 11:48 Freq: Status: Active Protocol: Activity Type Activity Date Activity User E-sign Co-sign Detail Recorded Client Recorded Date Recorded By Document 06/14/25 11:49 KW [id number] 06/14/25 11:59 KW Document 06/21/25 11:23 RB [id number] 06/21/25 11:32 RB Document 06/28/25 11:45 DS [id number] 06/28/25 12:07 DS 06/14/25 06/21/25 06/28/25 11:49 11:23 11:45 Wound Center Nurse 1 #24 Left Lateral Leg -Exudate Amt Large -Exudate Type Serosanguineous #22 R Medial/Lateral leg -Combined with other wound No -Current Size (cm) - Length 10 10.5 10.5 -Current Size (cm) - Width 27.2 25 27.0 -Current Size (cm) - Depth 0.1 0.1 0.1 -Total Square Cm 272.0 262.5 283.50 -Date of Last Picture (Recall this 06/14/25 field) -Photo Taken Yes No -Epithelialization Small 1-33% -Tunneling No No -Undermining/Tunneling No No -Circular Undermining No No -Exudate Amt Large Medium Large -Exudate Type Serosanguineous Serosanguineous Serosanguineous -Wound Margin Distinct, Distinct, Distinct, Outline Outline Outline Attached Attached Attached -Granulation Amt Medium (34-66%) Medium (34-66%) Medium (34-66%) -Granulation Quality Red Amberg Amberg -Slough/Fibrin Yes -Necrosis Amt Small (1-33%) Medium (34-66%) Medium (34-66%) -Necrotic Tissue Type Adherent Slough Adherent Slough Adherent Slough -Structure Exposed N/A -Texture (Marie-wound Skin Appearance) Assessed Assessed, Assessed Excoriation -Moisture (Marie-wound Skin Appearance) Assessed,Dry/ Assessed, Assessed Scaly Maceration -Color (Marie-wound Skin Appearance) Assessed, Assessed Assessed Hemosiderin Staining -Temperature (Marie-wound Skin No Abnormality No Abnormality No Abnormality Appearance) (Pt Warm) (Pt Warm) (Pt Warm) -Tenderness on Palpation (Marie-wound No No No Skin Appearance) -Ulcer Cleansing Soap and Water Wound Cleanser Soap and Water -Foul Odor after Cleansing No No -Anesthetic Used 5% Lidocaine 5% Lidocaine 5% Lidocaine Gel Gel Gel #18 Left medial LE cluster -Combined with other wound No -Current Size (cm) - Length 7 7.5 6.5 -Current Size (cm) - Width 14 15 13.2 -Current Size (cm) - Depth 0.1 0.1 0.1 -Total Square Cm 98 112.5 85.80 -Photo Taken Yes No -Tunneling No No -Undermining/Tunneling No No -Circular Undermining No No -Exudate Amt Large Large Large -Exudate Type Serosanguineous Serosanguineous Serosanguineous -Wound Margin Distinct, Distinct, Distinct, Outline Outline Outline Attached Attached Attached -Granulation Amt Large (67-100%) Medium (34-66%) Medium (34-66%) -Granulation Quality Red Amberg Amberg -Slough/Fibrin Yes -Necrosis Amt Small (1-33%) Medium (34-66%) Medium (34-66%) -Necrotic Tissue Type Adherent Slough Adherent Slough Adherent Slough -Structure Exposed N/A -Texture (Marie-wound Skin Appearance) Assessed Assessed, Assessed Excoriation -Moisture (Marie-wound Skin Appearance) Assessed Assessed, Assessed Maceration -Color (Marie-wound Skin Appearance) Assessed, Assessed Assessed Hemosiderin Staining -Temperature (Marie-wound Skin No Abnormality No Abnormality No Abnormality Appearance) (Pt Warm) (Pt Warm) (Pt Warm) -Tenderness on Palpation (Marie-wound No No No Skin Appearance) -Ulcer Cleansing Soap and Water Wound Cleanser Soap and Water -Foul Odor after Cleansing No No No -Anesthetic Used 5% Lidocaine 5% Lidocaine 5% Lidocaine Gel Gel Gel Lower Limb Edema Present Yes Yes Right Calf (cm) 41.5 43.5 Right Ankle (cm) 29 31.5 Left Calf (cm) 41 45.4 43.4 Left Ankle (cm) 29.5 30 31.0 WC - Nurse 2 - General Ulcer CM Notes Start: 06/14/25 11:48 Freq: Status: Active Protocol: Activity Type Activity Date Activity User E-sign Co-sign Detail Recorded Client Recorded Date Recorded By Document 06/14/25 13:23 GM [id number] 06/14/25 13:36 GM Document 06/21/25 11:48 GM [id number] 06/21/25 11:54 GM Document 06/28/25 12:20 GM [id number] 06/28/25 12:40 GM Edit Result 06/28/25 12:20 GM (1) [id number] 06/28/25 13:43 GM (1) #22 R Medial/Lateral leg - Dermabond => 3 06/14/25 06/21/25 06/28/25 13:23 11:48 12:20 Wound Center Nurse 2 #22 R Medial/Lateral leg -Time 13:24 11:48 12:20 -Correct Patient Yes Yes Yes -Correct Side, Site, Position Yes Yes Yes -Correct Procedure Yes Yes Yes -Procedure Performed Yes Yes Yes -Type of Procedure Debridement Debridement Debridement -Clinical Debridement Subcutaneous Subcutaneous Subcutaneous -Tissue Removed Subcutaneous Subcutaneous Subcutaneous -Post Debridement (cm) - Length 10.5 10.5 10.0 -Post Debridement (cm) - Width 25.5 25.3 25.1 -Post Debridement (cm) - Depth 0.1 0.1 0.1 -Total Square (Post) (cm) 267.75 265.65 251.00 -Area of Debridement (cm) - Length 10.5 10.5 10.0 -Area of Debridement (cm) - Width 25.5 25.3 25.1 -Total Square (Area) (cm) 267.75 265.65 251.00 -Tunneling No No No -Undermining/Tunneling No No No -Circular Undermining No No No -Wound/Ulcer Outcome Not Healed Not Healed Not Healed -Ulcer Cleansing Rinsed/ Rinsed/ Rinsed/ Irrigated with Irrigated with Irrigated with Saline Saline Saline -Foul Odor after Cleansing No No No -Bioengineered Tissue No No Yes -Type of Bioengineered Tissue Theraskin -Expiration Date 08/13/27 -Product Lot Number [id number] -Percent Used 100 -Lot number of Saline Used [id number] -Bleeding Controlled with Pressure Pressure Pressure -Treatment Response Procedure Procedure Procedure Tolerated Well Tolerated Well Tolerated Well -Offloading No No No -Debridement - Subq, 1st 20sq cm No No No -Apply Skin Sub - 1st 25 sq cm - Legs 1 -Dermabond 3 -Theraskin - 103TSXL (116 SQ CM) 116 Application 1-4 (per sq cm) #18 Left medial LE cluster -Time 13:25 11:49 12:21 -Correct Patient Yes Yes Yes -Correct Side, Site, Position Yes Yes Yes -Correct Procedure Yes Yes Yes -Procedure Performed Yes Yes Yes -Type of Procedure Debridement Debridement Debridement -Clinical Debridement Subcutaneous Subcutaneous Subcutaneous -Tissue Removed Subcutaneous Subcutaneous Subcutaneous -Post Debridement (cm) - Length 7.5 7.4 7.5 -Post Debridement (cm) - Width 12.5 13.0 13.0 -Post Debridement (cm) - Depth 0.1 0.1 0.1 -Total Square (Post) (cm) 93.75 96.20 97.50 -Area of Debridement (cm) - Length 7.5 7.4 7.5 -Area of Debridement (cm) - Width 12.5 13.0 13.0 -Total Square (Area) (cm) 93.75 96.20 97.50 -Tunneling No No No -Undermining/Tunneling No No No -Circular Undermining No No No -Wound/Ulcer Outcome Not Healed Not Healed Not Healed -Ulcer Cleansing Rinsed/ Rinsed/ Rinsed/ Irrigated with Irrigated with Irrigated with Saline Saline Saline -Foul Odor after Cleansing No No No -Bioengineered Tissue No No No -Bleeding Controlled with Pressure Pressure Pressure -Treatment Response Procedure Procedure Procedure Tolerated Well Tolerated Well Tolerated Well -Offloading No No No -Debridement - Subq, 1st 20sq cm Yes Yes Yes -Debridement, SubQ, ea addt'l 20sq cm 13 18 3 or part thereof Pain Scale: 0-10 Numeric Is Patient Pain Free? Yes Yes Yes - Nurse 3 - General Ulcer D/C NN Start: 06/14/25 11:48 Freq: Status: Active Protocol: Activity Type Activity Date Activity User E-sign Co-sign Detail Recorded Client Recorded Date Recorded By Document 06/14/25 13:42 KW [id number] 06/14/25 13:49 KW Edit Result 06/14/25 13:42 KW (1) [id number] 06/14/25 13:50 KW Document 06/21/25 12:00 RB [id number] 06/21/25 12:02 RB Document 06/28/25 13:01 KW [id number] 06/28/25 13:13 KW (1) #22 R Medial/Lateral leg - Fibracol Plus 4x4 2 => 3 - Optilok 6.5x10 1 => 2 06/14/25 06/21/25 06/28/25 13:42 12:00 13:01 Wound Care Center Nurse 3 #22 R Medial/Lateral leg -Ulcer Cleansing Rinsed/ Rinsed/ Irrigated with Irrigated with Saline Saline -Primary Dressing Applied Fibracol Plus Fibracol Plus Optilok 6.5x10 4x4,Optilok 6. 4x4,Optilok 6. 5x10 5x10 -Primary Dressing Covered/Secured with Dry Gauze & Dry Gauze & Roll Gauze Roll Gauze, Secured with Tape -Fibracol Plus 4x4 3 1 -Optilok 6.5x10 2 1 2 #18 Left medial LE cluster -Ulcer Cleansing Rinsed/ Irrigated with Saline -Primary Dressing Applied Optilok 6.5x10 Fibracol Plus Fibracol Plus 4x4,Optilok 6. 4x4,Optilok 6. 5x10 5x10 -Other Dressing FIBRACOL -Primary Dressing Covered/Secured with Dry Gauze & Dry Gauze & Dry Gauze & Roll Gauze Roll Gauze, Roll Gauze, Secured with Secured with Tape Tape -Fibracol Plus 4x4 1 1 -Optilok 6.5x10 1 2 1 BLE -Lotion applied to leg before No compression wrap -Stockings Yes: CIRCAIDS Yes: circaids Yes: circaids pts own Treatment Response Procedure Tolerated Well Pain Scale: 0-10 Numeric Is Patient Pain Free? Yes Yes Yes - Visit Discharge Discharge Condition Stable Stable Ambulatory Status Ambulatory Ambulatory, Walker Transportation [facility] Medication Reconcilliation completed & No No provided to patient/care provider Clinical Summary of Care Provided Yes Yes Additional Wound Wound debrided: right medial leg Laterality: Right Type of Debridement: Excisional debridement Anesthesia Used: 4% Lidocaine Solution, 5% Lidocaine Gel and Cetacaine Depth: Down to and including healthy tissue and in the subcutaneous layer Percentage of wound debrided: 100 Instrument Used: - (Misonix ultrasonic debridement) Tissue Removed: Yellow slough, devitalized tissue Severity: Fat Layer Exposed Amount of bleeding with debridement: Mild Bleeding Controlled with: Compression and gauze Patient tolerated procedure: Patient tolerated procedure well Operative Diagnosis: Theraksin applied to right medial LE ulcer per dry folder cloth guidelines. Assessment/Plan Assessment/Plan (1) Lymphedema: CODE(S): I89.0 - Lymphedema, not elsewhere classified (2) Hypertension: CODE(S): I10 - Essential (primary) hypertension QUALIFIERS: Hypertension type: primary hypertension Qualified Code(s): I10 - Essential (primary) hypertension (3) Hyperlipidemia: CODE(S): E78.5 - Hyperlipidemia, unspecified QUALIFIERS: Hyperlipidemia type: mixed hyperlipidemia Qualified Code(s): E78.2 - Mixed hyperlipidemia (4) History of DVT (deep vein thrombosis): CODE(S): Z86.718 - Personal history of other venous thrombosis and embolism (5) Venous insufficiency (chronic) (peripheral): CODE(S): I87.2 - Venous insufficiency (chronic) (peripheral) (6) Venous ulcer of left lower extremity with varicose veins: CODE(S): I83.029 - Varicose veins of left lower extremity with ulcer of unspecified site (7) Edema: CODE(S): R60.9 - Edema, unspecified QUALIFIERS: Edema type: unspecified Qualified Code(s): R60.9 - Edema, unspecified (8) 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 At home wound-care instructions: Theraskin applied today as above to right medial LE ulcer using 100% of product but only covering approx. 70% of ulcer. This was secured with skin glue and then covered with wound veil and secured with steri-strips. Will continue to use Circaid compression garments and cover with super absorber and kerlix to right LE and left LE changed daily. He is aware to keep this intact and dry. Due to his chronic lymphedema and being unable to don traditional compression stockings and the presence of venous ulcers on his LE b/l, it is medically necessary for him to have Circaid compression garments. He is using Circaid compression to both legs. I suspect he is not very compliant with his lymphedema pumps and not getting adequate compression with tubigrips and Circaids. Due to the delayed progress in wound healing of his venous ulcers, we discussed applying for advanced wound healing product for healing his ulcer. Due to the size of his ulcer, Theraskin application approval was requested from his insurance as it is medically necessary for salvaging his limb and healing his ulcer. He has previously had treatment with Theraskin to his left lower leg with improvement in October 2023. Insurance only allowed 3 applications at that time. It is medically necessary for application of Theraskin to his right lower extremity ulcer to salvage his limb and heal his ulcer and this has been approved for 10 applications. He is using Circaid compression wraps. Off-loading: The patient was instructed to avoid pressure and friction on the affected areas. Reposition every 2 hours at minimum. Avoid prolonged standing and/or dangling of legs. When seated, feet should be elevated at chest level. Frequent ambulation is encouraged. Encouraged lymphedema pump use. Diet: Patient encouraged to increase protein intake while taking caution to avoi d high carbohydrate and/or sugar intake. Labs/cultures/imaging: Wound culture showed Pseudomonas, Escherichia hermannii, Raoultella planticola, Vancomycin Resist. E. faecalis, Alcaligenes faecalis ssp faeca, Staphylococcus cohnii urealyti and anaerobic bacteria on 06/15/24 and he completed on Levofloxacin and Augmentin. Wound culture taken today on right lateral ulcer which showed Raoultella planticola, Staph hemolyticus, staph epidermidis and morganella morganii but no anaeroobic bacteria, Levofloxacin and doxycyline were prescribed based on culture results. Labs ordered 10/19/2024. Vitamin D was low A1C 5.4% Wound culture from 12/07/24 was positive for Providencia stuartii, Vancomycin resistant E. Faecalis, Corynebacterium striatum and completed Augmentin orally. Follow-up: Return in 1 week for wound care follow up and have dressing changed by home health Mondays. Return sooner or report to the emergency room should symptoms worsen, or new symptoms arise. Note: [employer] speech recognition brim greaser operator software was used to create portions of this document. Sound-alike and misspelled words, as well as other brim greaser operator errors may be contained in the documentation.
[2025-07-05 11:53] VITALS: BP 132/74; PULSE 58; RESP 18; TEMP 35.5
--- NOTE | 2025-07-05 13:25 | PN.PCM_ITS ---
History of Present Illness Date of Service: 07/05/25 Chief Complaint: venous ulcers of left lower extremity and right lower extremity History of Wound: Mauricio is a 69 yo gentleman who is here today for evaluation of ulcers to to his bilateral lower legs. He has been treated multiple times in the past at the wound healing center for similar ulcers. The left LE ulcer started after he developed increased swelling and blisters of left leg in October and the right leg started sometime at the end of October. He was seen at PCP's office a culture was taken and it was resistant to several antibiotics. He was treated initially with Levaquin but had myalgias and then was treated with doxycycline which he finished 2 days ago. He denies improvement and is having swelling to his left calf and thigh. He has been having swelling to both lower extremities for many years and it has worsened over the last few months. He has not been compliant with compression. He has had increased pain especially in the left leg. He has clear yellow drainage and redness without odor or warmth. He is anti- coagulated on coumadin. He has been washing with Dial soap and witch ifrah. He had been using Collagen at times and using Calcium Alginate and covering with ABD pads during October. He was treated with 3M compression and Aquacel Ag. He was referred to the wound center for ongoing treatment. His ulcers have moderate to heavy drainage. He was in the hospital from 11/30/22 until 12/09/22 for treatment of cellulitis and edema. He underwent treatment with Vancomycin and IV lasix and compression. Discharged on 12/09/22. He returned to his assisted living apartment on Tuesday12/21/22. Wound culture from 12/07/24 was positive for Providencia stuartii, Vancomycin resistant E. Faecalis, Corynebacterium striatum and completed Augmentin orally. His edema is better this week and he is tolerating Circaid compression. 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 He continues to use his lymphedema pumps but continues to have pain with use of these pumps. 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 Subjective Subjective Mauricio is a 70-year-old male with longstanding history of chronic venous ulceration to the left lower extremity and a right lower extremity venous ulcer that is nearly circumferential. There has been small improvement since his last visit. His edema is stable today. He is more compliant with elevation but still is not compliant with compression pump frequency due to pain with use of pumps. He has been applying KATE wraps over his Circaids for extra compression. Objective Data Objective Data Vital Signs: Vital Signs Temp Pulse Resp BP O2 Del Method 96 F L 58 L 18 132/74 H Room Air 07/05/25 11:53 07/05/25 11:53 07/05/25 11:53 07/05/25 11:53 06/28/25 11:45 Oxygen Delivery Method Room Air Physical Exam Const alert, oriented x3 and no apparent distress General Appearance: cooperative and comfortable HEENT normocephalic and head/scalp atraumatic Lymph Lymphatic: lymphedema moderate Resp normal respiratory effort Effort and Inspection: able to speak in complete sentences Cardio regular rate and regular rhythm Extremity Extremity Narrative: His ulcers are painful and the right lower leg remains more swollen than his left but there is good granulation tissue throughout and mild amount of slough that is nearly completely removed post - debridement, edges of ulcers are beveled without rolled borders bilaterally, Theraskin was intact to right lower leg and in place prior to debridement General Extremity: edema bilateral lower extremity Details: severe Skin General Skin Exam: venous stasis and dermatitis Wounds: wounds noted Psych mental status grossly normal, thought process normal, cooperative and affect normal Debridement Note Debridement Note Wound debrided: left medial LE ulcer Laterality: Left Type of Debridement: Excisional debridement Anesthesia Used: 5% Lidocaine Gel and Cetacaine Depth: Down to and including healthy tissue and in the subcutaneous layer Percentage of wound debrided: 100 Instrument Used: - (Misonix ultrasonic debridement) Tissue Removed: Yellow slough, devitalized tissue Severity: Fat Layer Exposed Amount of bleeding with debridement: Mild Bleeding Controlled with: Compression and gauze Patient tolerated procedure: Patient tolerated procedure well Post-Debridement Measurements and Additional Note: Post-Debridement Measurements/Treatment DEBBIE - Nurse 1 - General Ulcer Assessment Start: 06/14/25 11:48 Freq: Status: Active Protocol: ONDINA Activity Type Activity Date Activity User E-sign Co-sign Detail Recorded Client Recorded Date Recorded By Document 06/14/25 11:49 KW [id number] 06/14/25 11:59 KW Document 06/21/25 11:23 RB [id number] 06/21/25 11:32 RB Document 06/28/25 11:45 DS [id number] 06/28/25 12:07 DS Document 07/05/25 11:53 RB [id number] 07/05/25 12:00 RB 06/14/25 06/21/25 06/28/25 11:49 11:23 11:45 WC - Today's Visit Information Type of service Follow-up Visit Follow-up Visit Follow-up Visit (Physician/CODE ENFORCEMENT INSPECTOR (Physician/CODE ENFORCEMENT INSPECTOR (Physician/CODE ENFORCEMENT INSPECTOR ) ) ) Arrival Mode Ambulatory, Ambulatory, Ambulatory, Walker Walker Walker Transfer Assistance Manual Patient Identification Verified (Name & Yes Yes Yes ) Patient Requires Transmission-Based No No Precautions Safety Precautions Fall Prevention Vital Signs Temperature (97.8 F-99.1 F) 96.8 F L 97.4 F L 97.4 F L Temperature Source Temporal Temporal Temporal Pulse Rate (60-100) 60 66 63 Pulse Location Monitor Monitor Monitor Respiratory Rate (12-18) 18 18 18 Respiratory rate source Observation Observation Observation Oxygen Delivery Method Room Air Room Air Blood Pressure (90/60-120/80) 119/69 166/89 H 128/74 H Blood Pressure Mean (mm Hg) 85 114 92 Source Monitor Monitor Monitor Position Semi-Fowlers Semi-Fowlers Semi-Fowlers Blood Pressure Location Right Arm Left Arm Right Arm History Since Last Visit- (Skip if this is Patient's initial visit) Have you changed medications since your No No No last visit? Any new allergies or adverse reactions No No No Had a fall/change in ADL's that may No No No increase risk of falls Signs or symptoms of abuse and/or No No No neglect since last visit Have you been in the hospital since your No No No last visit? Has dressing in place as prescribed Yes Yes Yes Has compression in place as prescribed Yes Yes Yes Has offloadiing in place as prescribed N/A N/A N/A Experienced any changes in pain level or No No Yes management Left Footwear Regular Shoe Regular Shoe Regular Shoe Right Footwear Regular Shoe Regular Shoe Regular Shoe Pain Scale: 0-10 Numeric Is Patient Pain Free? No Yes No BLE -Description Throbbing, Aching -Intensity 9 -Duration (hours) Chronic -Pain Behavior No Change in Behavior -Alleviating Factors/Interventions Medication, Will continue Inactivity/ to monitor Resting 07/05/25 11:53 WC - Today's Visit Information Type of service Follow-up Visit (Physician/CODE ENFORCEMENT INSPECTOR ) Arrival Mode Ambulatory Transfer Assistance None Patient Identification Verified (Name & Yes ) Patient Requires Transmission-Based No Precautions Safety Precautions Vital Signs Temperature (97.8 F-99.1 F) 96 F L Temperature Source Temporal Pulse Rate (60-100) 58 L Pulse Location Monitor Respiratory Rate (12-18) 18 Respiratory rate source Observation Oxygen Delivery Method Blood Pressure (90/60-120/80) 132/74 H Blood Pressure Mean (mm Hg) 93 Source Monitor Position Sitting Blood Pressure Location Left Arm History Since Last Visit- (Skip if this is Patient's initial visit) Have you changed medications since your No last visit? Any new allergies or adverse reactions No Had a fall/change in ADL's that may No increase risk of falls Signs or symptoms of abuse and/or No neglect since last visit Have you been in the hospital since your No last visit? Has dressing in place as prescribed Yes Has compression in place as prescribed Yes Has offloadiing in place as prescribed N/A Experienced any changes in pain level or Yes management Left Footwear Regular Shoe Right Footwear Regular Shoe Pain Scale: 0-10 Numeric Is Patient Pain Free? Yes BLE -Description -Intensity -Duration (hours) -Pain Behavior -Alleviating Factors/Interventions - Nurse 1 - General Ulcer Measurement Start: 06/14/25 11:48 Freq: Status: Active Protocol: Activity Type Activity Date Activity User E-sign Co-sign Detail Recorded Client Recorded Date Recorded By Document 06/14/25 11:49 KW [id number] 06/14/25 11:59 KW Document 06/21/25 11:23 RB [id number] 06/21/25 11:32 RB Document 06/28/25 11:45 DS [id number] 06/28/25 12:07 DS Document 07/05/25 11:53 RB [id number] 07/05/25 12:00 RB 06/14/25 06/21/25 06/28/25 11:49 11:23 11:45 Wound Center Nurse 1 #24 Left Lateral Leg -Exudate Amt Large -Exudate Type Serosanguineous #22 R Medial/Lateral leg -Combined with other wound No -Current Size (cm) - Length 10 10.5 10.5 -Current Size (cm) - Width 27.2 25 27.0 -Current Size (cm) - Depth 0.1 0.1 0.1 -Total Square Cm 272.0 262.5 283.50 -Date of Last Picture (Recall this 06/14/25 field) -Photo Taken Yes No -Epithelialization Small 1-33% -Tunneling No No -Undermining/Tunneling No No -Circular Undermining No No -Exudate Amt Large Medium Large -Exudate Type Serosanguineous Serosanguineous Serosanguineous -Wound Margin Distinct, Distinct, Distinct, Outline Outline Outline Attached Attached Attached -Granulation Amt Medium (34-66%) Medium (34-66%) Medium (34-66%) -Granulation Quality Red [place] -Slough/Fibrin Yes -Necrosis Amt Small (1-33%) Medium (34-66%) Medium (34-66%) -Necrotic Tissue Type Adherent Slough Adherent Slough Adherent Slough -Structure Exposed N/A -Texture (Marie-wound Skin Appearance) Assessed Assessed, Assessed Excoriation -Moisture (Marie-wound Skin Appearance) Assessed,Dry/ Assessed, Assessed Scaly Maceration -Color (Marie-wound Skin Appearance) Assessed, Assessed Assessed Hemosiderin Staining -Temperature (Marie-wound Skin No Abnormality No Abnormality No Abnormality Appearance) (Pt Warm) (Pt Warm) (Pt Warm) -Tenderness on Palpation (Marie-wound No No No Skin Appearance) -Ulcer Cleansing Soap and Water Wound Cleanser Soap and Water -Foul Odor after Cleansing No No -Anesthetic Used 5% Lidocaine 5% Lidocaine 5% Lidocaine Gel Gel Gel #18 Left medial LE cluster -Combined with other wound No -Current Size (cm) - Length 7 7.5 6.5 -Current Size (cm) - Width 14 15 13.2 -Current Size (cm) - Depth 0.1 0.1 0.1 -Total Square Cm 98 112.5 85.80 -Photo Taken Yes No -Tunneling No No -Undermining/Tunneling No No -Circular Undermining No No -Exudate Amt Large Large Large -Exudate Type Serosanguineous Serosanguineous Serosanguineous -Wound Margin Distinct, Distinct, Distinct, Outline Outline Outline Attached Attached Attached -Granulation Amt Large (67-100%) Medium (34-66%) Medium (34-66%) -Granulation Quality Red [place] -Slough/Fibrin Yes -Necrosis Amt Small (1-33%) Medium (34-66%) Medium (34-66%) -Necrotic Tissue Type Adherent Slough Adherent Slough Adherent Slough -Structure Exposed N/A -Texture (Marie-wound Skin Appearance) Assessed Assessed, Assessed Excoriation -Moisture (Marie-wound Skin Appearance) Assessed Assessed, Assessed Maceration -Color (Marie-wound Skin Appearance) Assessed, Assessed Assessed Hemosiderin Staining -Temperature (Marie-wound Skin No Abnormality No Abnormality No Abnormality Appearance) (Pt Warm) (Pt Warm) (Pt Warm) -Tenderness on Palpation (Marie-wound No No No Skin Appearance) -Ulcer Cleansing Soap and Water Wound Cleanser Soap and Water -Foul Odor after Cleansing No No No -Anesthetic Used 5% Lidocaine 5% Lidocaine 5% Lidocaine Gel Gel Gel Lower Limb Edema Present Yes Yes Right Calf (cm) 41.5 43.5 Right Ankle (cm) 29 31.5 Left Calf (cm) 41 45.4 43.4 Left Ankle (cm) 29.5 30 31.0 07/05/25 11:53 Wound Center Nurse 1 #24 Left Lateral Leg -Exudate Amt -Exudate Type #22 R Medial/Lateral leg -Combined with other wound No -Current Size (cm) - Length 0.1 -Current Size (cm) - Width 0.1 -Current Size (cm) - Depth 0.1 -Total Square Cm 0.01 -Date of Last Picture (Recall this field) -Photo Taken Yes -Epithelialization -Tunneling No -Undermining/Tunneling No -Circular Undermining No -Exudate Amt Large -Exudate Type Serosanguineous -Wound Margin Distinct, Outline Attached -Granulation Amt -Granulation Quality [place] -Slough/Fibrin Yes -Necrosis Amt Medium (34-66%) -Necrotic Tissue Type Adherent Slough -Structure Exposed N/A -Texture (Marie-wound Skin Appearance) Assessed, Friable -Moisture (Marie-wound Skin Appearance) Assessed, Weeping -Color (Marie-wound Skin Appearance) Assessed -Temperature (Marie-wound Skin No Abnormality Appearance) (Pt Warm) -Tenderness on Palpation (Marie-wound No Skin Appearance) -Ulcer Cleansing Wound Cleanser -Foul Odor after Cleansing No -Anesthetic Used 5% Lidocaine Gel #18 Left medial LE cluster -Combined with other wound No -Current Size (cm) - Length 0.1 -Current Size (cm) - Width 0.1 -Current Size (cm) - Depth 0.1 -Total Square Cm 0.01 -Photo Taken Yes -Tunneling No -Undermining/Tunneling No -Circular Undermining No -Exudate Amt Large -Exudate Type Serosanguineous -Wound Margin Distinct, Outline Attached -Granulation Amt Medium (34-66%) -Granulation Quality [place] -Slough/Fibrin Yes -Necrosis Amt Medium (34-66%) -Necrotic Tissue Type Adherent Slough -Structure Exposed N/A -Texture (Marie-wound Skin Appearance) Assessed, Friable -Moisture (Marie-wound Skin Appearance) Assessed, Weeping -Color (Marie-wound Skin Appearance) Assessed -Temperature (Marie-wound Skin No Abnormality Appearance) (Pt Warm) -Tenderness on Palpation (Marie-wound No Skin Appearance) -Ulcer Cleansing Wound Cleanser -Foul Odor after Cleansing No -Anesthetic Used 5% Lidocaine Gel Lower Limb Edema Present Yes Right Calf (cm) 43.5 Right Ankle (cm) 31.5 Left Calf (cm) 43.4 Left Ankle (cm) 29.5 WC - Nurse 2 - General Ulcer CM Notes Start: 06/14/25 11:48 Freq: Status: Active Protocol: Activity Type Activity Date Activity User E-sign Co-sign Detail Recorded Client Recorded Date Recorded By Document 06/14/25 13:23 [id number] 06/14/25 13:36 Document 06/21/25 11:48 GM [id number] 06/21/25 11:54 Document 06/28/25 12:20 [id number] 06/28/25 12:40 GM Edit Result 06/28/25 12:20 GM (1) [id number] 06/28/25 13:43 GM Document 07/05/25 12:02 GM [id number] 07/05/25 12:19 GM (1) #22 R Medial/Lateral leg - Dermabond => 3 06/14/25 06/21/25 06/28/25 13:23 11:48 12:20 Wound Center Nurse 2 #22 R Medial/Lateral leg -Time 13:24 11:48 12:20 -Correct Patient Yes Yes Yes -Correct Side, Site, Position Yes Yes Yes -Correct Procedure Yes Yes Yes -Procedure Performed Yes Yes Yes -Type of Procedure Debridement Debridement Debridement -Clinical Debridement Subcutaneous Subcutaneous Subcutaneous -Tissue Removed Subcutaneous Subcutaneous Subcutaneous -Post Debridement (cm) - Length 10.5 10.5 10.0 -Post Debridement (cm) - Width 25.5 25.3 25.1 -Post Debridement (cm) - Depth 0.1 0.1 0.1 -Total Square (Post) (cm) 267.75 265.65 251.00 -Area of Debridement (cm) - Length 10.5 10.5 10.0 -Area of Debridement (cm) - Width 25.5 25.3 25.1 -Total Square (Area) (cm) 267.75 265.65 251.00 -Tunneling No No No -Undermining/Tunneling No No No -Circular Undermining No No No -Wound/Ulcer Outcome Not Healed Not Healed Not Healed -Ulcer Cleansing Rinsed/ Rinsed/ Rinsed/ Irrigated with Irrigated with Irrigated with Saline Saline Saline -Foul Odor after Cleansing No No No -Bioengineered Tissue No No Yes -Type of Bioengineered Tissue Theraskin -Expiration Date 08/13/27 -Product Lot Number [id number] -Percent Used 100 -Lot number of Saline Used [id number] -Bleeding Controlled with Pressure Pressure Pressure -Treatment Response Procedure Procedure Procedure Tolerated Well Tolerated Well Tolerated Well -Offloading No No No -Debridement - Subq, 1st 20sq cm No No No -Apply Skin Sub - 1st 25 sq cm - Legs 1 -Apply Skin Sub - each addt'l 25 sq cm - Legs -Dermabond 3 -Theraskin - 103TSXL (116 SQ CM) 116 Application 1-4 (per sq cm) #18 Left medial LE cluster -Time 13:25 11:49 12:21 -Correct Patient Yes Yes Yes -Correct Side, Site, Position Yes Yes Yes -Correct Procedure Yes Yes Yes -Procedure Performed Yes Yes Yes -Type of Procedure Debridement Debridement Debridement -Clinical Debridement Subcutaneous Subcutaneous Subcutaneous -Tissue Removed Subcutaneous Subcutaneous Subcutaneous -Post Debridement (cm) - Length 7.5 7.4 7.5 -Post Debridement (cm) - Width 12.5 13.0 13.0 -Post Debridement (cm) - Depth 0.1 0.1 0.1 -Total Square (Post) (cm) 93.75 96.20 97.50 -Area of Debridement (cm) - Length 7.5 7.4 7.5 -Area of Debridement (cm) - Width 12.5 13.0 13.0 -Total Square (Area) (cm) 93.75 96.20 97.50 -Tunneling No No No -Undermining/Tunneling No No No -Circular Undermining No No No -Wound/Ulcer Outcome Not Healed Not Healed Not Healed -Ulcer Cleansing Rinsed/ Rinsed/ Rinsed/ Irrigated with Irrigated with Irrigated with Saline Saline Saline -Foul Odor after Cleansing No No No -Bioengineered Tissue No No No -Bleeding Controlled with Pressure Pressure Pressure -Treatment Response Procedure Procedure Procedure Tolerated Well Tolerated Well Tolerated Well -Offloading No No No -Debridement - Subq, 1st 20sq cm Yes Yes Yes -Debridement, SubQ, ea addt'l 20sq cm 13 18 3 or part thereof Pain Scale: 0-10 Numeric Is Patient Pain Free? Yes Yes Yes 07/05/25 12:02 Wound Center Nurse 2 #22 R Medial/Lateral leg -Time 12:03 -Correct Patient Yes -Correct Side, Site, Position Yes -Correct Procedure Yes -Procedure Performed Yes -Type of Procedure Debridement -Clinical Debridement Subcutaneous -Tissue Removed Subcutaneous -Post Debridement (cm) - Length 10 -Post Debridement (cm) - Width 26.5 -Post Debridement (cm) - Depth 0.1 -Total Square (Post) (cm) 265.0 -Area of Debridement (cm) - Length 10.0 -Area of Debridement (cm) - Width 26.5 -Total Square (Area) (cm) 265.00 -Tunneling No -Undermining/Tunneling No -Circular Undermining No -Wound/Ulcer Outcome Not Healed -Ulcer Cleansing Rinsed/ Irrigated with Saline -Foul Odor after Cleansing No -Bioengineered Tissue No -Type of Bioengineered Tissue -Expiration Date 04/02/28 -Product Lot Number [id number] -Percent Used 100 -Lot number of Saline Used [id number] -Bleeding Controlled with Pressure -Treatment Response Procedure Tolerated Well -Offloading No -Debridement - Subq, 1st 20sq cm No -Apply Skin Sub - 1st 25 sq cm - Legs -Apply Skin Sub - each addt'l 25 sq cm 1 - Legs -Dermabond 3 -Theraskin - 103TSXL (116 SQ CM) 116 Application 1-4 (per sq cm) #18 Left medial LE cluster -Time 12:03 -Correct Patient Yes -Correct Side, Site, Position Yes -Correct Procedure Yes -Procedure Performed Yes -Type of Procedure Debridement -Clinical Debridement Subcutaneous -Tissue Removed Subcutaneous -Post Debridement (cm) - Length 6.5 -Post Debridement (cm) - Width 11.5 -Post Debridement (cm) - Depth 0.1 -Total Square (Post) (cm) 74.75 -Area of Debridement (cm) - Length 6.5 -Area of Debridement (cm) - Width 11.5 -Total Square (Area) (cm) 74.75 -Tunneling No -Undermining/Tunneling No -Circular Undermining No -Wound/Ulcer Outcome Not Healed -Ulcer Cleansing Rinsed/ Irrigated with Saline -Foul Odor after Cleansing No -Bioengineered Tissue No -Bleeding Controlled with Pressure -Treatment Response Procedure Tolerated Well -Offloading No -Debridement - Subq, 1st 20sq cm Yes -Debridement, SubQ, ea addt'l 20sq cm 3 or part thereof Pain Scale: 0-10 Numeric Is Patient Pain Free? Yes WC - Nurse 3 - General Ulcer D/C NN Start: 06/14/25 11:48 Freq: Status: Active Protocol: Activity Type Activity Date Activity User E-sign Co-sign Detail Recorded Client Recorded Date Recorded By Document 06/14/25 13:42 KW [id number] 06/14/25 13:49 KW Edit Result 06/14/25 13:42 KW (1) [id number] 06/14/25 13:50 KW Document 06/21/25 12:00 RB [id number] 06/21/25 12:02 RB Document 06/28/25 13:01 KW [id number] 06/28/25 13:13 KW Document 07/05/25 12:28 GM [id number] 07/05/25 12:30 GM (1) #22 R Medial/Lateral leg - Fibracol Plus 4x4 2 => 3 - Optilok 6.5x10 1 => 2 06/14/25 06/21/25 06/28/25 13:42 12:00 13:01 Wound Care Center Nurse 3 #22 R Medial/Lateral leg -Ulcer Cleansing Rinsed/ Rinsed/ Irrigated with Irrigated with Saline Saline -Foul Odor after Cleansing -Primary Dressing Applied Fibracol Plus Fibracol Plus Optilok 6.5x10 4x4,Optilok 6. 4x4,Optilok 6. 5x10 5x10 -Primary Dressing Covered/Secured with Dry Gauze & Dry Gauze & Roll Gauze Roll Gauze, Secured with Tape -Fibracol Plus 4x4 3 1 -Optilok 6.5x10 2 1 2 #18 Left medial LE cluster -Ulcer Cleansing Rinsed/ Irrigated with Saline -Foul Odor after Cleansing -Primary Dressing Applied Optilok 6.5x10 Fibracol Plus Fibracol Plus 4x4,Optilok 6. 4x4,Optilok 6. 5x10 5x10 -Other Dressing FIBRACOL -Primary Dressing Covered/Secured with Dry Gauze & Dry Gauze & Dry Gauze & Roll Gauze Roll Gauze, Roll Gauze, Secured with Secured with Tape Tape -Fibracol Plus 4x4 1 1 -Optilok 6.5x10 1 2 1 BLE -Lotion applied to leg before No compression wrap -Stockings Yes: CIRCAIDS Yes: circaids Yes: circaids pts own Treatment Response Procedure Tolerated Well Pain Scale: 0-10 Numeric Is Patient Pain Free? Yes Yes Yes - Visit Discharge Discharge Condition Stable Stable Ambulatory Status Ambulatory Ambulatory, Walker Transportation [facility] transport [facility] transport Medication Reconcilliation completed & No No provided to patient/care provider Clinical Summary of Care Provided Yes Yes 07/05/25 12:28 Wound Care Center Nurse 3 #22 R Medial/Lateral leg -Ulcer Cleansing Not Cleansed -Foul Odor after Cleansing No -Primary Dressing Applied Optilok 6.5x10 -Primary Dressing Covered/Secured with Dry Gauze & Roll Gauze, Secured with Tape -Fibracol Plus 4x4 -Optilok 6.5x10 1 #18 Left medial LE cluster -Ulcer Cleansing Not Cleansed -Foul Odor after Cleansing No -Primary Dressing Applied Fibracol Plus 4x4,Optilok 6. 5x10 -Other Dressing -Primary Dressing Covered/Secured with Dry Gauze & Roll Gauze, Secured with Tape -Fibracol Plus 4x4 1 -Optilok 6.5x10 1 BLE -Lotion applied to leg before compression wrap -Stockings Treatment Response Pain Scale: 0-10 Numeric Is Patient Pain Free? Yes WC - Visit Discharge Discharge Condition Stable Ambulatory Status Walker Transportation Private Auto Medication Reconcilliation completed & provided to patient/care provider Clinical Summary of Care Provided Additional Wound Wound debrided: right medial leg Laterality: Right Type of Debridement: Excisional debridement Anesthesia Used: 4% Lidocaine Solution, 5% Lidocaine Gel and Cetacaine Depth: Down to and including healthy tissue and in the subcutaneous layer Percentage of wound debrided: 100 Instrument Used: - (Misonix ultrasonic debridement) Tissue Removed: Yellow slough, devitalized tissue Severity: Fat Layer Exposed Amount of bleeding with debridement: Mild Bleeding Controlled with: Compression and gauze Patient tolerated procedure: Patient tolerated procedure well Operative Diagnosis: Theraksin #2 applied to right medial LE ulcer per mental health program specialist guidelines. Assessment/Plan Assessment/Plan (1) Lymphedema: CODE(S): I89.0 - Lymphedema, not elsewhere classified (2) Hypertension: CODE(S): I10 - Essential (primary) hypertension QUALIFIERS: Hypertension type: primary hypertension Qualified Code(s): I10 - Essential (primary) hypertension (3) Hyperlipidemia: CODE(S): E78.5 - Hyperlipidemia, unspecified QUALIFIERS: Hyperlipidemia type: mixed hyperlipidemia Qualified Code(s): E78.2 - Mixed hyperlipidemia (4) History of DVT (deep vein thrombosis): CODE(S): Z86.718 - Personal history of other venous thrombosis and embolism (5) Venous insufficiency (chronic) (peripheral): CODE(S): I87.2 - Venous insufficiency (chronic) (peripheral) (6) Venous ulcer of left lower extremity with varicose veins: CODE(S): I83.029 - Varicose veins of left lower extremity with ulcer of unspecified site (7) Edema: CODE(S): R60.9 - Edema, unspecified QUALIFIERS: Edema type: unspecified Qualified Code(s): R60.9 - Edema, unspecified (8) 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 At home wound-care instructions: Theraskin applied today as above to right medial LE ulcer using 100% of product but only covering approx. 70% of ulcer. This was secured with skin glue and then covered with wound veil and secured with steri-strips. Will continue to use Circaid compression garments and cover with super absorber and kerlix to right LE and left LE changed daily. He is aware to keep this intact and dry. Due to his chronic lymphedema and being unable to don traditional compression stockings and the presence of venous ulcers on his LE b/l, it is medically necessary for him to have Circaid compression garments. He is using Circaid compression to both legs. I suspect he is not very compliant with his lymphedema pumps and not getting adequate compression with tubigrips and Circaids. Due to the delayed progress in wound healing of his venous ulcers, we discussed applying for advanced wound healing product for healing his ulcer. Due to the size of his ulcer, Theraskin application approval was requested from his insurance as it is medically necessary for salvaging his limb and healing his ulcer. He has previously had treatment with Theraskin to his left lower leg with improvement in October 2023. Insurance only allowed 3 applications at that time. It is medically necessary for application of Theraskin to his right lower extremity ulcer to salvage his limb and heal his ulcer and this has been approved for 10 applications. He is using Circaid compression wraps. Off-loading: The patient was instructed to avoid pressure and friction on the affected areas. Reposition every 2 hours at minimum. Avoid prolonged standing and/or dangling of legs. When seated, feet should be elevated at chest level. Frequent ambulation is encouraged. Encouraged lymphedema pump use. Diet: Patient encouraged to increase protein intake while taking caution to avoid high carbohydrate and/or sugar intake. Labs/cultures/imaging: Wound culture showed Pseudomonas, Escherichia hermannii, Raoultella planticola, Vancomycin Resist. E. faecalis, Alcaligenes faecalis ssp faeca, Staphylococcus cohnii urealyti and anaerobic bacteria on 06/15/24 and he completed on Levofloxacin and Augmentin. Wound culture taken today on right lateral ulcer which showed Raoultella planticola, Staph hemolyticus, staph epidermidis and morganella morganii but no anaeroobic bacteria, Levofloxacin and doxycyline were prescribed based on culture results. Labs ordered 10/19/2024. Vitamin D was low A1C 5.4% Wound culture from 12/07/24 was positive for Providencia stuartii, Vancomycin resistant E. Faecalis, Corynebacterium striatum and completed Augmentin orally. Follow-up: Return in 1 week for wound care follow up and have dressing changed by home health Mondays. Return sooner or report to the emergency room should symptoms worsen, or new symptoms arise. Note: [employer] speech recognition national sales software was used to create portions of this document. Sound-alike and misspelled words, as well as other national sales errors may be contained in the documentation.
--- NOTE | 2025-07-08 09:17 | WC ---
PHOTO-LLE 07/05/25
--- NOTE | 2025-07-08 09:17 | WC ---
PHOTO-RLE 07/05/25
== END 2025-07-09 23:59 | disposition home or self-care (01) ==
LOC: WC 11:30
PROVIDERS: PCP Family Medicine; Referring Provider Family Medicine; Visit Provider Family Medicine
DX: I83.893 Varicose veins of bilateral lower extremities with other complications (principal); L97.912 Non-pressure chronic ulcer of unspecified part of right lower leg with fat layer exposed; L97.922 Non-pressure chronic ulcer of unspecified part of left lower leg with fat layer exposed; I87.2 Venous insufficiency (chronic) (peripheral); E78.2 Mixed hyperlipidemia; I89.0 Lymphedema, not elsewhere classified; R60.9 Edema, unspecified; Z86.718 Personal history of other venous thrombosis and embolism; I10 Essential (primary) hypertension; Z91.198 Patient's noncompliance with other medical treatment and regimen for other reason
CPT/HCPCS: 11042; 11045; 15271; 15272; 15273; Q4121

== ENCOUNTER → 2025-07-11 | Outpatient (CLI) | payer MEDICARE, OTHER, SELFPAY ==
--- NOTE | 2025-07-11 13:50 | VDLE_ITS ---
Reason For Study Reason For Study: LLE Pain Procedure LEFT This is a venous duplex using B-mode, color flow and GSV is normal. spectral Doppler. CFV is partially compressible with bright Exam performed in department. intraluminal echoes, consistent with Chronic DVT. The study was technically difficult. Normal venous flow noted. FV is partially compressible with bright intraluminal echoes, consistent with Chronic DVT. Normal venous flow noted. PopV is partially compressible with bright intraluminal echoes, consistent with Chronic DVT. POP V is spontaneous, phasic and demonstrates reflux of greater than one second. T/P Trunk is compressible. PTV is compressible. LT PerV is compressible. VL/Venous Duplex US, Unilateral Interpretation Summary Chronic venous changes are noted in the left common femoral vein, femoral vein, and popliteal vein, which are partially compressible and demonstrate bright intra-luminal echogenicity. The left poplit eal vein is incompetent. The left great saphenous vein appears patent and compressible segmentally. Ordering Physician: Patricia Garcia Referring Physician: Patricia Garcia Performed By: Gary Soto, RVT
== END | disposition home or self-care (01) ==
LOC: CVS 13:49
PROVIDERS: PCP Family Medicine; Referring Provider Family Medicine; Visit Provider Family Medicine
DX: M79.659 Pain in unspecified thigh (principal); Z86.718 Personal history of other venous thrombosis and embolism
CPT/HCPCS: 93971

== ENCOUNTER 2025-08-09 11:45 | Outpatient (RCR) | payer MEDICARE, OTHER, SELFPAY ==
[2025-07-12 11:52] VITALS: BP 143/84; PULSE 58; RESP 18; TEMP 36.1
--- NOTE | 2025-07-12 14:49 | PN.PCM_ITS ---
History of Present Illness Date of Service: 07/12/25 Chief Complaint: venous ulcers of left lower extremity and right lower extremity History of Wound: Mauricio is a 69 yo gentleman who is here today for evaluation of ulcers to to his bilateral lower legs. He has been treated multiple times in the past at the wound healing center for similar ulcers. The left LE ulcer started after he developed increased swelling and blisters of left leg in October and the right leg started sometime at the end of October. He was seen at PCP's office a culture was taken and it was resistant to several antibiotics. He was treated initially with Levaquin but had myalgias and then was treated with doxycycline which he finished 2 days ago. He denies improvement and is having swelling to his left calf and thigh. He has been having swelling to both lower extremities for many years and it has worsened over the last few months. He has not been compliant with compression. He has had increased pain especially in the left leg. He has clear yellow drainage and redness without odor or warmth. He is anti- coagulated on coumadin. He has been washing with Dial soap and witch ifrah. He had been using Collagen at times and using Calcium Alginate and covering with ABD pads during October. He was treated with 3M compression and Aquacel Ag. He was referred to the wound center for ongoing treatment. His ulcers have moderate to heavy drainage. He was in the hospital from 11/30/22 until 12/09/22 for treatment of cellulitis and edema. He underwent treatment with Vancomycin and IV lasix and compression. Discharged on 12/09/22. He returned to his assisted living apartment on Tuesday12/21/22. Wound culture from 12/07/24 was positive for Providencia stuartii, Vancomycin resistant E. Faecalis, Corynebacterium striatum and completed Augmentin orally. His edema is better this week and he is tolerating Circaid compression. 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 He continues to use his lymphedema pumps but continues to have pain with use of these pumps. 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 Subjective Subjective Mauricio is a 70-year-old male with longstanding history of chronic venous ulceration to the left lower extremity and a right lower extremity venous ulcer that is nearly circumferential. There has been small improvement since his last visit. He has tolerated treatment with Theraskin #2. His edema is stable today. He is more compliant with elevation but still is not compliant with compression pump frequency due to pain with use of pumps. He has been applying KATE wraps over his Circaids for extra compression. Objective Data Objective Data Vital Signs: Vital Signs Temp Pulse Resp BP 97 F L 58 L 18 143/84 H 07/12/25 11:52 07/12/25 11:52 07/12/25 11:52 07/12/25 11:52 Physical Exam Const alert, oriented x3 and no apparent distress General Appearance: cooperative and comfortable HEENT normocephalic and head/scalp atraumatic Lymph Lymphatic: lymphedema moderate Resp normal respiratory effort Effort and Inspection: able to speak in complete sentences Cardio regular rate and regular rhythm Extremity Extremity Narrative: His ulcers are painful and the right lower leg remains more swollen than his left but there is good granulation tissue throughout and mild amount of slough that is nearly completely removed post - debridement, edges of ulcers are beveled without rolled borders bilaterally, Theraskin was intact to right lower leg and in place prior to debridement General Extremity: edema bilateral lower extremity Details: severe Skin General Skin Exam: venous stasis and dermatitis Wounds: wounds noted Psych mental status grossly normal, thought process normal, cooperative and affect normal Debridement Note Debridement Note Wound debrided: left medial LE ulcer Laterality: Left Type of Debridement: Excisional debridement Anesthesia Used: 5% Lidocaine Gel and Cetacaine Depth: Down to and including healthy tissue and in the subcutaneous layer Percentage of wound debrided: 100 Instrument Used: - (Misonix ultrasonic debridement) Tissue Removed: Yellow slough, devitalized tissue Severity: Fat Layer Exposed Amount of bleeding with debridement: Mild Bleeding Controlled with: Compression and gauze Patient tolerated procedure: Patient tolerated procedure well Post-Debridement Measurements and Additional Note: Post-Debridement Measurements/Treatment [id number] - Nurse 1 - General Ulcer Assessment Start: 07/12/25 11:52 Freq: Status: Active Protocol: ONDINA Activity Type Activity Date Activity User E-sign Co-sign Detail Recorded Client Recorded Date Recorded By Document 07/12/25 11:52 RB [id number] 07/12/25 11:56 RB 07/12/25 11:52 - Today's Visit Information Type of service Follow-up Visit (Physician/LITIGATION SERVICES MANAGER ) Arrival Mode Ambulatory Transfer Assistance None Patient Identification Verified (Name & Yes ) Patient Requires Transmission-Based No Precautions Vital Signs Temperature (97.8 F-99.1 F) 97 F L Temperature Source Temporal Pulse Rate (60-100) 58 L Pulse Location Monitor Respiratory Rate (12-18) 18 Respiratory rate source Observation Blood Pressure (90/60-120/80) 143/84 H Blood Pressure Mean (mm Hg) 103 Source Monitor Position Semi-Fowlers Blood Pressure Location Left Arm History Since Last Visit- (Skip if this is Patient's initial visit) Have you changed medications since your No last visit? Any new allergies or adverse reactions No Had a fall/change in ADL's that may No increase risk of falls Signs or symptoms of abuse and/or No neglect since last visit Have you been in the hospital since your No last visit? Has dressing in place as prescribed Yes Has compression in place as prescribed Yes Has offloadiing in place as prescribed N/A Experienced any changes in pain level or No management Pain Scale: 0-10 Numeric Is Patient Pain Free? Yes - Nurse 1 - General Ulcer Measurement Start: 07/12/25 11:52 Freq: Status: Active Protocol: Activity Type Activity Date Activity User E-sign Co-sign Detail Recorded Client Recorded Date Recorded By Document 07/12/25 11:52 [id number] 07/12/25 11:56 07/12/25 11:52 Wound Center Nurse 1 #24 Left Lateral Leg -Combined with other wound No -Current Size (cm) - Length 17 -Current Size (cm) - Width 13 -Current Size (cm) - Depth 0.1 -Total Square Cm 221 -Photo Taken Yes -Tunneling No -Undermining/Tunneling No -Circular Undermining No -Exudate Amt Large -Exudate Type Serosanguineous -Wound Margin Distinct, Outline Attached -Granulation Amt Large (67-100%) -Granulation Quality [place] -Slough/Fibrin Yes -Necrosis Amt Small (1-33%) -Necrotic Tissue Type Adherent Slough -Structure Exposed N/A -Texture (Marie-wound Skin Appearance) Assessed -Moisture (Marie-wound Skin Appearance) Assessed, Maceration -Color (Marie-wound Skin Appearance) Assessed -Temperature (Marie-wound Skin No Abnormality Appearance) (Pt Warm) -Tenderness on Palpation (Marie-wound No Skin Appearance) -Ulcer Cleansing Wound Cleanser -Foul Odor after Cleansing No -Anesthetic Used 5% Lidocaine Gel #22 R Medial/Lateral leg -Combined with other wound No -Current Size (cm) - Length 8 -Current Size (cm) - Width 29 -Current Size (cm) - Depth 0.1 -Total Square Cm 232 -Photo Taken Yes -Tunneling No -Undermining/Tunneling No -Circular Undermining No -Exudate Amt Large -Exudate Type Serosanguineous -Wound Margin Distinct, Outline Attached -Granulation Amt Medium (34-66%) -Granulation Quality [place] -Slough/Fibrin Yes -Necrosis Amt Medium (34-66%) -Necrotic Tissue Type Adherent Slough -Structure Exposed N/A -Texture (Marie-wound Skin Appearance) Assessed -Moisture (Marie-wound Skin Appearance) Assessed, Maceration -Color (Marie-wound Skin Appearance) Assessed -Temperature (Marie-wound Skin No Abnormality Appearance) (Pt Warm) -Tenderness on Palpation (Marie-wound No Skin Appearance) -Ulcer Cleansing Wound Cleanser -Foul Odor after Cleansing No -Anesthetic Used 5% Lidocaine Gel #18 Left medial LE cluster -Combined with other wound No -Current Size (cm) - Length 0.1 -Current Size (cm) - Width 0.1 -Current Size (cm) - Depth 0.1 -Total Square Cm 0.01 -Photo Taken Yes -Tunneling No -Undermining/Tunneling No -Circular Undermining No -Exudate Amt Large -Exudate Type Serosanguineous -Wound Margin Distinct, Outline Attached -Granulation Amt Medium (34-66%) -Granulation Quality [place] -Slough/Fibrin Yes -Necrosis Amt Small (1-33%) -Necrotic Tissue Type Adherent Slough -Structure Exposed N/A -Texture (Marie-wound Skin Appearance) Assessed -Moisture (Marie-wound Skin Appearance) Assessed, Maceration -Color (Marie-wound Skin Appearance) Assessed -Temperature (Marie-wound Skin No Abnormality Appearance) (Pt Warm) -Tenderness on Palpation (Marie-wound No Skin Appearance) -Ulcer Cleansing Wound Cleanser -Foul Odor after Cleansing No -Anesthetic Used 5% Lidocaine Gel Lower Limb Edema Present Yes Right Calf (cm) 44 Right Ankle (cm) 30.2 Left Calf (cm) 44.5 Left Ankle (cm) 30.8 WC - Nurse 2 - General Ulcer CM Notes Start: 07/12/25 11:52 Freq: Status: Active Protocol: Activity Type Activity Date Activity User E-sign Co-sign Detail Recorded Client Recorded Date Recorded By Document 07/12/25 12:10 [id number] 07/12/25 12:20 07/12/25 12:10 Wound Center Nurse 2 #24 Left Lateral Leg -Time 12:11 -Correct Patient Yes -Correct Side, Site, Position Yes -Tunneling No -Undermining/Tunneling No -Circular Undermining No -Wound/Ulcer Outcome Healed- Epithelialized #22 R Medial/Lateral leg -Time 12:11 -Correct Patient Yes -Correct Side, Site, Position Yes -Correct Procedure Yes -Procedure Performed Yes -Type of Procedure Debridement -Clinical Debridement Subcutaneous -Tissue Removed Subcutaneous -Post Debridement (cm) - Length 10 -Post Debridement (cm) - Width 25 -Post Debridement (cm) - Depth 0.1 -Total Square (Post) (cm) 250 -Area of Debridement (cm) - Length 10 -Area of Debridement (cm) - Width 25 -Total Square (Area) (cm) 250 -Tunneling No -Undermining/Tunneling No -Circular Undermining No -Wound/Ulcer Outcome Not Healed -Ulcer Cleansing Rinsed/ Irrigated with Saline -Foul Odor after Cleansing No -Bioengineered Tissue Yes -Type of Bioengineered Tissue Theraskin -Expiration Date 03/28/27 -Product Lot Number [id number] -Percent Used 100 -Lot number of Saline Used [id number] -Bleeding Controlled with Pressure -Treatment Response Procedure Tolerated Well -Debridement - Subq, 1st 20sq cm No -Apply Skin Sub - 1st 100 sq cm - Legs 1 -Theraskin - 103TSXL (116 SQ CM) 116 Application 1-4 (per sq cm) #18 Left medial LE cluster -Time 12:13 -Correct Patient Yes -Correct Side, Site, Position Yes -Correct Procedure Yes -Procedure Performed Yes -Type of Procedure Debridement -Clinical Debridement Subcutaneous -Tissue Removed Subcutaneous -Post Debridement (cm) - Length 6.9 -Post Debridement (cm) - Width 12.5 -Post Debridement (cm) - Depth 0.1 -Total Square (Post) (cm) 86.25 -Area of Debridement (cm) - Length 6.9 -Area of Debridement (cm) - Width 12.5 -Total Square (Area) (cm) 86.25 -Tunneling No -Undermining/Tunneling No -Circular Undermining No -Wound/Ulcer Outcome Not Healed -Ulcer Cleansing Rinsed/ Irrigated with Saline -Foul Odor after Cleansing No -Bioengineered Tissue No -Bleeding Controlled with Pressure -Treatment Response Procedure Tolerated Well -Offloading No -Debridement - Subq, 1st 20sq cm Yes -Debridement, SubQ, ea addt'l 20sq cm 4 or part thereof Pain Scale: 0-10 Numeric Is Patient Pain Free? Yes - Nurse 3 - General Ulcer D/C NN Start: 07/12/25 11:52 Freq: Status: Active Protocol: Activity Type Activity Date Activity User E-sign Co-sign Detail Recorded Client Recorded Date Recorded By Document 07/12/25 13:07 [id number] 07/12/25 13:10 07/12/25 13:07 Wound Care Center Nurse 3 #22 R Medial/Lateral leg -Primary Dressing Applied Optilok 6.5x10 -Optilok 6.5x10 2 #18 Left medial LE cluster -Ulcer Cleansing Wound Cleanser -Primary Dressing Applied Fibracol Plus 4x4,Optilok 6. 5x10 -Fibracol Plus 4x4 1 -Optilok 6.5x10 1 BLE -Stockings Yes: circaids Treatment Response Procedure Tolerated Well Pain Scale: 0-10 Numeric Is Patient Pain Free? Yes - Visit Discharge Discharge Condition Stable Ambulatory Status Ambulatory Transportation [facility] Medication Reconcilliation completed & No provided to patient/care provider Clinical Summary of Care Provided Yes Additional Wound Wound debrided: right medial leg Laterality: Right Type of Debridement: Excisional debridement Anesthesia Used: 4% Lidocaine Solution, 5% Lidocaine Gel and Cetacaine Depth: Down to and including healthy tissue and in the subcutaneous layer Percentage of wound debrided: 100 Instrument Used: - (Misonix ultrasonic debridement) Tissue Removed: Yellow slough, devitalized tissue Severity: Fat Layer Exposed Amount of bleeding with debridement: Mild Bleeding Controlled with: Compression and gauze Patient tolerated procedure: Patient tolerated procedure well Operative Diagnosis: Theraksin #2 applied to right medial LE ulcer per binding cementer french cord guidelines. Assessment/Plan Assessment/Plan (1) Lymphedema: CODE(S): I89.0 - Lymphedema, not elsewhere classified (2) Hypertension: CODE(S): I10 - Essential (primary) hypertension QUALIFIERS: Hypertension type: primary hypertension Qualified Code(s): I10 - Essential (primary) hypertension (3) Hyperlipidemia: CODE(S): E78.5 - Hyperlipidemia, unspecified QUALIFIERS: Hyperlipidemia type: mixed hyperlipidemia Qualified Code(s): E78.2 - Mixed hyperlipidemia (4) History of DVT (deep vein thrombosis): CODE(S): Z86.718 - Personal history of other venous thrombosis and embolism (5) Venous insufficiency (chronic) (peripheral): CODE(S): I87.2 - Venous insufficiency (chronic) (peripheral) (6) Venous ulcer of left lower extremity with varicose veins: CODE(S): I83.029 - Varicose veins of left lower extremity with ulcer of unspecified site (7) Edema: CODE(S): R60.9 - Edema, unspecified QUALIFIERS: Edema type: unspecified Qualified Code(s): R60.9 - Edema, unspecified (8) 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 At home wound-care instructions: Theraskin #3 applied today as above to right medial LE ulcer using 100% of product but only covering approx. 80% of ulcer. This was secured with skin glue and then covered with wound veil and secured with steri-strips. Will continue to use Circaid compression garments and cover with super absorber and kerlix to right LE and left LE changed daily. He is aware to keep this intact and dry. Due to his chronic lymphedema and being unable to don traditional compression stockings and the presence of venous ulcers on his LE b/l, it is medically necessary for him to have Circaid compression garments. He is using Circaid compression to both legs. I suspect he is not very compliant with his lymphedema pumps and not getting adequate compression with tubigrips and Circaids. Due to the delayed progress in wound healing of his venous ulcers, we discussed applying for advanced wound healing product for healing his ulcer. Due to the size of his ulcer, Theraskin application approval was requested from his insurance as it is medically necessary for salvaging his limb and healing his ulcer. He has previously had treatment with Theraskin to his left lower leg with improvement in October 2023. Insurance only allowed 3 applications at that time. It is medically necessary for application of Theraskin to his right lower extremity ulcer to salvage his limb and heal his ulcer and this has been approved for 10 applications. He is using Circaid compression wraps. Off-loading: The patient was instructed to avoid pressure and friction on the affected areas. Reposition every 2 hours at minimum. Avoid prolonged standing and/or dangling of legs. When seated, feet should be elevated at chest level. Frequent ambulation is encouraged. Encouraged lymphedema pump use. Diet: Patient encouraged to increase protein intake while taking caution to avoid high carbohydrate and/or sugar intake. Labs/cultures/imaging: Wound culture showed Pseudomonas, Escherichia hermannii, Raoultella planticola, Vancomycin Resist. E. faecalis, Alcaligenes faecalis ssp faeca, Staphylococcus cohnii urealyti and anaerobic bacteria on 06/15/24 and he completed on Levofloxacin and Augmentin. Wound culture taken today on right lateral ulcer which showed Raoultella planticola, Staph hemolyticus, staph epidermidis and morganella morganii but no anaeroobic bacteria, Levofloxacin and doxycyline were prescribed based on culture results. Labs ordered 10/19/2024. Vitamin D was low A1C 5.4% Wound culture from 12/07/24 was positive for Providencia stuartii, Vancomycin resistant E. Faecalis, Corynebacterium striatum and completed Augmentin orally. Follow-up: Return in 1 week for wound care follow up and have dressing changed by home health Mondays. Return sooner or report to the emergency room should symptoms worsen, or new symptoms arise. Note: [employer] speech recognition tub tender software was used to create portions of this document. Sound-alike and misspelled words, as well as other tub tender errors may be contained in the documentation.
--- NOTE | 2025-07-16 11:16 | WC ---
PHOTO-LLE 07/12/25
--- NOTE | 2025-07-16 11:19 | WC ---
PHOTO-RLE 07/12/25
--- NOTE | 2025-07-16 11:21 | WC ---
PHOTO-LLE 07/12/25
[2025-07-19 12:05] VITALS: BP 145/83; PULSE 54; RESP 18; TEMP 35.8
--- NOTE | 2025-07-19 14:49 | PN.PCM_ITS ---
History of Present Illness Date of Service: 07/19/25 Chief Complaint: venous ulcers of left lower extremity and right lower extremity History of Wound: Mauricio is a 69 yo gentleman who is here today for evaluation of ulcers to to his bilateral lower legs. He has been treated multiple times in the past at the wound healing center for similar ulcers. The left LE ulcer started after he developed increased swelling and blisters of left leg in October and the right leg started sometime at the end of October. He was seen at PCP's office a culture was taken and it was resistant to several antibiotics. He was treated initially with Levaquin but had myalgias and then was treated with doxycycline which he finished 2 days ago. He denies improvement and is having swelling to his left calf and thigh. He has been having swelling to both lower extremities for many years and it has worsened over the last few months. He has not been compliant with compression. He has had increased pain especially in the left leg. He has clear yellow drainage and redness without odor or warmth. He is anti- coagulated on coumadin. He has been washing with Dial soap and witch ifrah. He had been using Collagen at times and using Calcium Alginate and covering with ABD pads during October. He was treated with 3M compression and Aquacel Ag. He was referred to the wound center for ongoing treatment. His ulcers have moderate to heavy drainage. He was in the hospital from 11/30/22 until 12/09/22 for treatment of cellulitis and edema. He underwent treatment with Vancomycin and IV lasix and compression. Discharged on 12/09/22. He returned to his assisted living apartment on Tuesday12/21/22. Wound culture from 12/07/24 was positive for Providencia stuartii, Vancomycin resistant E. Faecalis, Corynebacterium striatum and completed Augmentin orally. His edema is better this week and he is tolerating Circaid compression. 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 He continues to use his lymphedema pumps but continues to have pain with use of these pumps. 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 Subjective Subjective Mauricio is a 70-year-old male with longstanding history of chronic venous ulceration to the left lower extremity and a right lower extremity venous ulcer that is nearly circumferential. There has been small improvement since his last visit. He has tolerated treatment with Theraskin #3. His edema is stable today. He is more compliant with elevation but still is not compliant with compression pump frequency due to pain with use of pumps. He has been applying KATE wraps over his Circaids for extra compression. Objective Data Objective Data Vital Signs: Vital Signs Temp Pulse Resp BP 96.4 F L 54 L 18 145/83 H 07/19/25 12:05 07/19/25 12:05 07/19/25 12:05 07/19/25 12:05 Physical Exam Const alert, oriented x3 and no apparent distress General Appearance: cooperative and comfortable HEENT normocephalic and head/scalp atraumatic Lymph Lymphatic: lymphedema moderate Resp normal respiratory effort Effort and Inspection: able to speak in complete sentences Cardio regular rate and regular rhythm Extremity Extremity Narrative: His ulcers are painful and the right lower leg remains more swollen than his left but there is good granulation tissue throughout and mild amount of slough that is nearly completely removed post - debridement, edges of ulcers are beveled without rolled borders bilaterally, Theraskin was intact to right lower leg and in place prior to debridement General Extremity: edema bilateral lower extremity Details: severe Skin General Skin Exam: venous stasis and dermatitis Wounds: wounds noted Psych mental status grossly normal, thought process normal, cooperative and affect normal Debridement Note Debridement Note Wound debrided: left medial LE ulcer Laterality: Left Type of Debridement: Excisional debridement Anesthesia Used: 5% Lidocaine Gel and Cetacaine Depth: Down to and including healthy tissue and in the subcutaneous layer Percentage of wound debrided: 100 Instrument Used: - (Misonix ultrasonic debridement) Tissue Removed: Yellow slough, devitalized tissue Severity: Fat Layer Exposed Amount of bleeding with debridement: Mild Bleeding Controlled with: Compression and gauze Patient tolerated procedure: Patient tolerated procedure well Post-Debridement Measurements and Additional Note: Post-Debridement Measurements/Treatment [id number] - Nurse 1 - General Ulcer Assessment Start: 07/12/25 11:52 Freq: Status: Active Protocol: ONDINA Activity Type Activity Date Activity User E-sign Co-sign Detail Recorded Client Recorded Date Recorded By Document 07/12/25 11:52 RB [id number] 07/12/25 11:56 RB Document 07/19/25 12:05 RB [id number] 07/19/25 12:07 RB 07/12/25 07/19/25 11:52 12:05 - Today's Visit Information Type of service Follow-up Visit Follow-up Visit (Physician/PHARMACEUTICAL PHYSICIAN (Physician/PHARMACEUTICAL PHYSICIAN ) ) Arrival Mode Ambulatory Ambulatory, Walker Transfer Assistance None Manual Patient Identification Verified (Name & Yes Yes ) Patient Requires Transmission-Based No No Precautions Vital Signs Temperature (97.8 F-99.1 F) 97 F L 96.4 F L Temperature Source Temporal Temporal Pulse Rate (60-100) 58 L 54 L Pulse Location Monitor Monitor Respiratory Rate (12-18) 18 18 Respiratory rate source Observation Observation Blood Pressure (90/60-120/80) 143/84 H 145/83 H Blood Pressure Mean (mm Hg) 103 103 Source Monitor Monitor Position Semi-Fowlers Semi-Fowlers Blood Pressure Location Left Arm Left Arm History Since Last Visit- (Skip if this is Patient's initial visit) Have you changed medications since your No No last visit? Any new allergies or adverse reactions No No Had a fall/change in ADL's that may No No increase risk of falls Signs or symptoms of abuse and/or No No neglect since last visit Have you been in the hospital since your No No last visit? Has dressing in place as prescribed Yes Yes Has compression in place as prescribed Yes Yes Has offloadiing in place as prescribed N/A N/A Experienced any changes in pain level or No No management Left Footwear Regular Shoe Right Footwear Regular Shoe Pain Scale: 0-10 Numeric Is Patient Pain Free? Yes Yes - Nurse 1 - General Ulcer Measurement Start: 07/12/25 11:52 Freq: Status: Active Protocol: Activity Type Activity Date Activity User E-sign Co-sign Detail Recorded Client Recorded Date Recorded By Document 07/12/25 11:52 RB [id number] 07/12/25 11:56 RB Document 07/19/25 12:05 RB [id number] 07/19/25 12:07 RB 07/12/25 07/19/25 11:52 12:05 Wound Center Nurse 1 #24 Left Lateral Leg -Combined with other wound No -Current Size (cm) - Length 17 -Current Size (cm) - Width 13 -Current Size (cm) - Depth 0.1 -Total Square Cm 221 -Photo Taken Yes -Tunneling No -Undermining/Tunneling No -Circular Undermining No -Exudate Amt Large -Exudate Type Serosanguineous -Wound Margin Distinct, Outline Attached -Granulation Amt Large (67-100%) -Granulation Quality [place] -Slough/Fibrin Yes -Necrosis Amt Small (1-33%) -Necrotic Tissue Type Adherent Slough -Structure Exposed N/A -Texture (Marie-wound Skin Appearance) Assessed -Moisture (Marie-wound Skin Appearance) Assessed, Maceration -Color (Marie-wound Skin Appearance) Assessed -Temperature (Marie-wound Skin No Abnormality Appearance) (Pt Warm) -Tenderness on Palpation (Marie-wound No Skin Appearance) -Ulcer Cleansing Wound Cleanser -Foul Odor after Cleansing No -Anesthetic Used 5% Lidocaine Gel #22 R Medial/Lateral leg -Combined with other wound No No -Current Size (cm) - Length 8 0.1 -Current Size (cm) - Width 29 0.1 -Current Size (cm) - Depth 0.1 0.1 -Total Square Cm 232 0.01 -Photo Taken Yes -Tunneling No No -Undermining/Tunneling No No -Circular Undermining No No -Exudate Amt Large Large -Exudate Type Serosanguineous Serosanguineous -Wound Margin Distinct, Distinct, Outline Outline Attached Attached -Granulation Amt Medium (34-66%) Large (67-100%) -Granulation Quality [place] -Slough/Fibrin Yes Yes -Necrosis Amt Medium (34-66%) Small (1-33%) -Necrotic Tissue Type Adherent Slough Adherent Slough -Structure Exposed N/A N/A -Texture (Marie-wound Skin Appearance) Assessed Assessed, Friable -Moisture (Marie-wound Skin Appearance) Assessed, Assessed, Maceration Weeping -Color (Marie-wound Skin Appearance) Assessed Assessed -Temperature (Marie-wound Skin No Abnormality No Abnormality Appearance) (Pt Warm) (Pt Warm) -Tenderness on Palpation (Marie-wound No No Skin Appearance) -Ulcer Cleansing Wound Cleanser Wound Cleanser -Foul Odor after Cleansing No No -Anesthetic Used 5% Lidocaine 5% Lidocaine Gel Gel #18 Left medial LE cluster -Combined with other wound No No -Current Size (cm) - Length 0.1 0.1 -Current Size (cm) - Width 0.1 0.1 -Current Size (cm) - Depth 0.1 0.1 -Total Square Cm 0.01 0.01 -Photo Taken Yes Yes -Tunneling No No -Undermining/Tunneling No No -Circular Undermining No No -Exudate Amt Large Large -Exudate Type Serosanguineous Serosanguineous -Wound Margin Distinct, Distinct, Outline Outline Attached Attached -Granulation Amt Medium (34-66%) -Granulation Quality [place] -Slough/Fibrin Yes Yes -Necrosis Amt Small (1-33%) Medium (34-66%) -Necrotic Tissue Type Adherent Slough Adherent Slough -Structure Exposed N/A N/A -Texture (Marie-wound Skin Appearance) Assessed Assessed, Friable -Moisture (Marie-wound Skin Appearance) Assessed, Assessed Maceration -Color (Marie-wound Skin Appearance) Assessed Assessed -Temperature (Marie-wound Skin No Abnormality No Abnormality Appearance) (Pt Warm) (Pt Warm) -Tenderness on Palpation (Marie-wound No No Skin Appearance) -Ulcer Cleansing Wound Cleanser Wound Cleanser -Foul Odor after Cleansing No No -Anesthetic Used 5% Lidocaine 5% Lidocaine Gel Gel Lower Limb Edema Present Yes Right Calf (cm) 44 Right Ankle (cm) 30.2 Left Calf (cm) 44.5 Left Ankle (cm) 30.8 WC - Nurse 2 - General Ulcer CM Notes Start: 07/12/25 11:52 Freq: Status: Active Protocol: Activity Type Activity Date Activity User E-sign Co-sign Detail Recorded Client Recorded Date Recorded By Document 07/12/25 12:10 [id number] 07/12/25 12:20 Document 07/19/25 12:32 [id number] 07/19/25 12:39 07/12/25 07/19/25 12:10 12:32 Wound Center Nurse 2 #24 Left Lateral Leg -Time 12:11 -Correct Patient Yes -Correct Side, Site, Position Yes -Tunneling No -Undermining/Tunneling No -Circular Undermining No -Wound/Ulcer Outcome Healed- Epithelialized #22 R Medial/Lateral leg -Time 12:11 12:32 -Correct Patient Yes Yes -Correct Side, Site, Position Yes Yes -Correct Procedure Yes Yes -Procedure Performed Yes Yes -Type of Procedure Debridement Debridement -Clinical Debridement Subcutaneous Subcutaneous -Tissue Removed Subcutaneous Subcutaneous -Post Debridement (cm) - Length 10 10.5 -Post Debridement (cm) - Width 25 24.8 -Post Debridement (cm) - Depth 0.1 0.1 -Total Square (Post) (cm) 250 260.40 -Area of Debridement (cm) - Length 10 10.5 -Area of Debridement (cm) - Width 25 24.8 -Total Square (Area) (cm) 250 260.40 -Tunneling No No -Undermining/Tunneling No No -Circular Undermining No No -Wound/Ulcer Outcome Not Healed Not Healed -Ulcer Cleansing Rinsed/ Rinsed/ Irrigated with Irrigated with Saline Saline -Foul Odor after Cleansing No No -Bioengineered Tissue Yes Yes -Type of Bioengineered Tissue Theraskin Theraskin -Expiration Date 03/28/27 10/07/27 -Product Lot Number [id number] -Percent Used 100 100 -Lot number of Saline Used [id number] -Bleeding Controlled with Pressure Pressure -Treatment Response Procedure Procedure Tolerated Well Tolerated Well -Offloading No -Debridement - Subq, 1st 20sq cm No No -Apply Skin Sub - 1st 100 sq cm - Legs 1 1 -Dermabond 3 -Theraskin - 103TSXL (116 SQ CM) 116 116 Application 1-4 (per sq cm) #18 Left medial LE cluster -Time 12:13 12:32 -Correct Patient Yes Yes -Correct Side, Site, Position Yes Yes -Correct Procedure Yes Yes -Procedure Performed Yes Yes -Type of Procedure Debridement Debridement -Clinical Debridement Subcutaneous Subcutaneous -Tissue Removed Subcutaneous Subcutaneous -Post Debridement (cm) - Length 6.9 7.0 -Post Debridement (cm) - Width 12.5 12.0 -Post Debridement (cm) - Depth 0.1 0.1 -Total Square (Post) (cm) 86.25 84.00 -Area of Debridement (cm) - Length 6.9 7.0 -Area of Debridement (cm) - Width 12.5 12.0 -Total Square (Area) (cm) 86.25 84.00 -Tunneling No No -Undermining/Tunneling No No -Circular Undermining No No -Wound/Ulcer Outcome Not Healed Not Healed -Ulcer Cleansing Rinsed/ Rinsed/ Irrigated with Irrigated with Saline Saline -Foul Odor after Cleansing No No -Bioengineered Tissue No No -Bleeding Controlled with Pressure Pressure -Treatment Response Procedure Procedure Tolerated Well Tolerated Well -Offloading No No -Debridement - Subq, 1st 20sq cm Yes Yes -Debridement, SubQ, ea addt'l 20sq cm 4 4 or part thereof Pain Scale: 0-10 Numeric Is Patient Pain Free? Yes Yes - Nurse 3 - General Ulcer D/C NN Start: 07/12/25 11:52 Freq: Status: Active Protocol: Activity Type Activity Date Activity User E-sign Co-sign Detail Recorded Client Recorded Date Recorded By Document 07/12/25 13:07 RB [id number] 07/12/25 13:10 RB Document 07/19/25 13:19 RB [id number] 07/19/25 13:21 RB 07/12/25 07/19/25 13:07 13:19 Wound Care Center Nurse 3 #22 R Medial/Lateral leg -Primary Dressing Applied Optilok 6.5x10 Optilok 6.5x10 -Optilok 6.5x10 2 2 #18 Left medial LE cluster -Ulcer Cleansing Wound Cleanser -Primary Dressing Applied Fibracol Plus Aquacel Extra, 4x4,Optilok 6. Fibracol Plus 5x10 4x4,Optilok 5x5 1/2 -Aquacel Extra 1 -Fibracol Plus 4x4 1 1 -Optilok 5x5 1/2 1 -Optilok 6.5x10 1 BLE -Stockings Yes: circaids Yes: pt own circaids Treatment Response Procedure Tolerated Well Pain Scale: 0-10 Numeric Is Patient Pain Free? Yes Yes - Visit Discharge Discharge Condition Stable Ambulatory Status Ambulatory Transportation [facility] transport Medication Reconcilliation completed & No provided to patient/care provider Clinical Summary of Care Provided Yes Additional Wound Wound debrided: right medial leg Laterality: Right Type of Debridement: Excisional debridement Anesthesia Used: 4% Lidocaine Solution, 5% Lidocaine Gel and Cetacaine Depth: Down to and including healthy tissue and in the subcutaneous layer Percentage of wound debrided: 100 Instrument Used: - (Misonix ultrasonic debridement) Tissue Removed: Yellow slough, devitalized tissue Severity: Fat Layer Exposed Amount of bleeding with debridement: Mild Bleeding Controlled with: Compression and gauze Patient tolerated procedure: Patient tolerated procedure well Operative Diagnosis: Theraksin #4 applied to right medial LE ulcer per accounting lecturer guidelines. Assessment/Plan Assessment/Plan (1) Lymphedema: CODE(S): I89.0 - Lymphedema, not elsewhere classified (2) Hypertension: CODE(S): I10 - Essential (primary) hypertension QUALIFIERS: Hypertension type: primary hypertension Qualified Code(s): I10 - Essential (primary) hypertension (3) Hyperlipidemia: CODE(S): E78.5 - Hyperlipidemia, unspecified QUALIFIERS: Hyperlipidemia type: mixed hyperlipidemia Qualified Code(s): E78.2 - Mixed hyperlipidemia (4) History of DVT (deep vein thrombosis): CODE(S): Z86.718 - Personal history of other venous thrombosis and embolism (5) Venous insufficiency (chronic) (peripheral): CODE(S): I87.2 - Venous insufficiency (chronic) (peripheral) (6) Venous ulcer of left lower extremity with varicose veins: CODE(S): I83.029 - Varicose veins of left lower extremity with ulcer of unspecified site (7) Edema: CODE(S): R60.9 - Edema, unspecified QUALIFIERS: Edema type: unspecified Qualified Code(s): R60.9 - Edema, unspecified (8) 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 At home wound-care instructions: Theraskin #4 applied today as above to right medial LE ulcer using 100% of product but only covering approx. 80% of ulcer. This was secured with skin glue and then covered with wound veil and secured with steri-strips. Will continue to use Circaid compression garments and cover with super absorber and kerlix to right LE and left LE changed every other day. Left medial LE will be dressed with Fibracol and calcium alginate and ABD and kerlix for moderate to heavy drainage. This will be changed every other day. He is aware to keep this intact and dry. Due to his chronic lymphedema and being unable to don traditional compression stockings and the presence of venous ulcers on his LE b/l, it is medically necessary for him to have Circaid compression garments. He is using Circaid compression to both legs. I suspect he is not very compliant with his lymphedema pumps and not getting adequate compression with tubigrips and Circaids. Due to the delayed progress in wound healing of his venous ulcers, we discussed applying for advanced wound healing product for healing his ulcer. Due to the size of his ulcer, Theraskin application approval was requested from his insurance as it is medically necessary for salvaging his limb and healing his ulcer. He has previously had treatment with Theraskin to his left lower leg with improvement in October 2023. Insurance only allowed 3 applications at that time. It is medically necessary for application of Theraskin to his right lower extremity ulcer to salvage his limb and heal his ulcer and this has been approved for 10 applications. He is using Circaid compression wraps. Off-loading: The patient was instructed to avoid pressure and friction on the affected areas. Reposition every 2 hours at minimum. Avoid prolonged standing and/or dangling of legs. When seated, feet should be elevated at chest level. Frequent ambulation is encouraged. Encouraged lymphedema pump use. Diet: Patient encouraged to increase protein intake while taking caution to avoid high carbohydrate and/or sugar intake. Labs/cultures/imaging: Wound culture showed Pseudomonas, Escherichia hermannii, Raoultella planticola, Vancomycin Resist. E. faecalis, Alcaligenes faecalis ssp faeca, Staphylococcus cohnii urealyti and anaerobic bacteria on 06/15/24 and he completed on Levofloxacin and Augmentin. Wound culture taken today on right lateral ulcer which showed Raoultella planticola, Staph hemolyticus, staph epidermidis and morganella morganii but no anaeroobic bacteria, Levofloxacin and doxycyline were prescribed based on culture results. Labs ordered 10/19/2024. Vitamin D was low A1C 5.4% Wound culture from 12/07/24 was positive for Providencia stuartii, Vancomycin resistant E. Faecalis, Corynebacterium striatum and completed Augmentin orally. Follow-up: Return in 1 week for wound care follow up and have dressing changed by home health Mondays. Return sooner or report to the emergency room should symptoms worsen, or new symptoms arise. Note: Opiatalk speech recognition nursery technician software was used to create portions of this document. Sound-alike and misspelled words, as well as other nursery technician errors may be contained in the documentation.
[2025-07-26 12:21] VITALS: BP 144/85; PULSE 66; RESP 18; TEMP 36.3
--- NOTE | 2025-07-26 14:31 | PCM.WC.PN ---
History of Present Illness Date of Service: 07/26/25 Chief Complaint: venous ulcers of left lower extremity and right lower extremity History of Wound: Mauricio is a 69 yo gentleman who is here today for evaluation of ulcers to to his bilateral lower legs. He has been treated multiple times in the past at the wound healing center for similar ulcers. The left LE ulcer started after he developed increased swelling and blisters of left leg in October and the right leg started sometime at the end of October. He was seen at PCP's office a culture was taken and it was resistant to several antibiotics. He was treated initially with Levaquin but had myalgias and then was treated with doxycycline which he finished 2 days ago. He denies improvement and is having swelling to his left calf and thigh. He has been having swelling to both lower extremities for many years and it has worsened over the last few months. He has not been compliant with compression. He has had increased pain especially in the left leg. He has clear yellow drainage and redness without odor or warmth. He is anti-coagulated on coumadin. He has been washing with Dial soap and witch ifrah. He had been using Collagen at times and using Calcium Alginate and covering with ABD pads during October. He was treated with 3M compression and Aquacel Ag. He was referred to the wound center for ongoing treatment. His ulcers have moderate to heavy drainage. He was in the hospital from 11/30/22 until 12/09/22 for treatment of cellulitis and edema. He underwent treatment with Vancomycin and IV lasix and compression. Discharged on 12/09/22. He returned to his assisted living apartment on Tuesday12/21/22. Wound culture from 12/07/24 was positive for Providencia stuartii, Vancomycin resistant E. Faecalis, Corynebacterium striatum and completed Augmentin orally. His edema is better this week and he is tolerating Circaid compression. 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 He continues to use his lymphedema pumps but continues to have pain with use of these pumps. 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 Subjective Subjective Mauricio is a 70-year-old male with longstanding history of chronic venous ulceration to the left lower extremity and a right lower extremity venous ulcer that is nearly circumferential. There has been small improvement since his last visit. He has tolerated treatment with Theraskin #4. His edema is stable today. He is more compliant with elevation but still is not compliant with compression pump frequency due to pain with use of pumps. He has been applying KATE wraps over his Circaids for extra compression. Objective Data Objective Data Vital Signs: Vital Signs Temp Pulse Resp BP 97.3 F L 66 18 144/85 H 07/26/25 12:21 07/26/25 12:21 07/26/25 12:21 07/26/25 12:21 Physical Exam Const alert, oriented x3 and no apparent distress General Appearance: cooperative and comfortable HEENT normocephalic and head/scalp atraumatic Lymph Lymphatic: lymphedema moderate Resp normal respiratory effort Effort and Inspection: able to speak in complete sentences Cardio regular rate and regular rhythm Extremity Extremity Narrative: His ulcers are painful and the right lower leg remains more swollen than his left but there is good granulation tissue throughout and mild amount of slough that is nearly completely removed post - debridement, edges of ulcers are beveled without rolled borders bilaterally, Theraskin was intact to right lower leg and in place prior to debridement General Extremity: edema bilateral lower extremity Details: severe Skin General Skin Exam: venous stasis and dermatitis Wounds: wounds noted Psych mental status grossly normal, thought process normal, cooperative and affect normal Debridement Note Debridement Note Wound debrided: left medial LE ulcer Laterality: Left Type of Debridement: Excisional debridement Anesthesia Used: 5% Lidocaine Gel and Cetacaine Depth: Down to and including healthy tissue and in the subcutaneous layer Percentage of wound debrided: 100 Instrument Used: - (Misonix ultrasonic debridement) Tissue Removed: Yellow slough, devitalized tissue Severity: Fat Layer Exposed Amount of bleeding with debridement: Mild Bleeding Controlled with: Compression and gauze Patient tolerated procedure: Patient tolerated procedure well Post-Debridement Measurements and Additional Note: Post-Debridement Measurements/Treatment DEBBIE - Nurse 1 - General Ulcer Assessment Start: 07/12/25 11:52 Freq: Status: Active Protocol: ONDINA Activity Type Activity Date Activity User E-sign Co-sign Detail Recorded Client Recorded Date Recorded By Document 07/12/25 11:52 RB [id number] 07/12/25 11:56 RB Document 07/19/25 12:05 RB [id number] 07/19/25 12:07 RB Document 07/26/25 12:21 RB [id number] 07/26/25 12:25 RB 07/12/25 07/19/25 07/26/25 11:52 12:05 12:21 WC - Today's Visit Information Type of service Follow-up Visit Follow-up Visit Follow-up Visit (Physician/PRECISION STRUCTURAL METAL FITTER (Physician/PRECISION STRUCTURAL METAL FITTER (Physician/PRECISION STRUCTURAL METAL FITTER ) ) ) Arrival Mode Ambulatory Ambulatory, Ambulatory, Walker Walker Transfer Assistance None Manual None Patient Identification Verified (Name & Yes Yes Yes ) Patient Requires Transmission-Based No No No Precautions Vital Signs Temperature (97.8 F-99.1 F) 97 F L 96.4 F L 97.3 F L Temperature Source Temporal Temporal Temporal Pulse Rate (60-100) 58 L 54 L 66 Pulse Location Monitor Monitor Monitor Respiratory Rate (12-18) 18 18 18 Respiratory rate source Observation Observation Observation Blood Pressure (90/60-120/80) 143/84 H 145/83 H 144/85 H Blood Pressure Mean (mm Hg) 103 103 104 Source Monitor Monitor Monitor Position Semi-Fowlers Semi-Fowlers Semi-Fowlers Blood Pressure Location Left Arm Left Arm Left Arm History Since Last Visit- (Skip if this is Patient's initial visit) Have you changed medications since your No No No last visit? Any new allergies or adverse reactions No No No Had a fall/change in ADL's that may No No No increase risk of falls Signs or symptoms of abuse and/or No No No neglect since last visit Have you been in the hospital since your No No No last visit? Has dressing in place as prescribed Yes Yes Yes Has compression in place as prescribed Yes Yes Yes Has offloadiing in place as prescribed N/A N/A N/A Experienced any changes in pain level or No No No management Left Footwear Regular Shoe Regular Shoe Right Footwear Regular Shoe Regular Shoe Pain Scale: 0-10 Numeric Is Patient Pain Free? Yes Yes No BILAT LE -Description Burning, Crushing -Intensity 6 -Duration (hours) Acute -Pain Behavior Guarding, Irritability -Pain Aggravating Factors Changing Position -Alleviating Factors/Interventions Medication -Effectiveness of Alleviating Factor/ Minimally Intervention effective WC - Nurse 1 - General Ulcer Measurement Start: 07/12/25 11:52 Freq: Status: Active Protocol: Activity Type Activity Date Activity User E-sign Co-sign Detail Recorded Client Recorded Date Recorded By Document 07/12/25 11:52 RB [id number] 07/12/25 11:56 RB Document 07/19/25 12:05 RB [id number] 07/19/25 12:07 RB Document 07/26/25 12:21 RB [id number] 07/26/25 12:25 RB 07/12/25 07/19/25 07/26/25 11:52 12:05 12:21 Wound Center Nurse 1 #24 Left Lateral Leg -Combined with other wound No -Current Size (cm) - Length 17 -Current Size (cm) - Width 13 -Current Size (cm) - Depth 0.1 -Total Square Cm 221 -Photo Taken Yes -Tunneling No -Undermining/Tunneling No -Circular Undermining No -Exudate Amt Large -Exudate Type Serosanguineous -Wound Margin Distinct, Outline Attached -Granulation Amt Large (67-100%) -Granulation Quality [place] -Slough/Fibrin Yes -Necrosis Amt Small (1-33%) -Necrotic Tissue Type Adherent Slough -Structure Exposed N/A -Texture (Marie-wound Skin Appearance) Assessed -Moisture (Marie-wound Skin Appearance) Assessed, Maceration -Color (Mraie-wound Skin Appearance) Assessed -Temperature (Marie-wound Skin No Abnormality Appearance) (Pt Warm) -Tenderness on Palpation (Marie-wound No Skin Appearance) -Ulcer Cleansing Wound Cleanser -Foul Odor after Cleansing No -Anesthetic Used 5% Lidocaine Gel #22 R Medial/Lateral leg -Combined with other wound No No No -Current Size (cm) - Length 8 0.1 0.1 -Current Size (cm) - Width 29 0.1 0.1 -Current Size (cm) - Depth 0.1 0.1 0.1 -Total Square Cm 232 0.01 0.01 -Photo Taken Yes Yes -Tunneling No No No -Undermining/Tunneling No No No -Circular Undermining No No No -Exudate Amt Large Large Medium -Exudate Type Serosanguineous Serosanguineous Serosanguineous -Wound Margin Distinct, Distinct, Distinct, Outline Outline Outline Attached Attached Attached -Granulation Amt Medium (34-66%) Large (67-100%) Medium (34-66%) -Granulation Quality [place] -Slough/Fibrin Yes Yes Yes -Necrosis Amt Medium (34-66%) Small (1-33%) Medium (34-66%) -Necrotic Tissue Type Adherent Slough Adherent Slough Adherent Slough -Structure Exposed N/A N/A N/A -Texture (Marie-wound Skin Appearance) Assessed Assessed, Assessed, Friable Friable -Moisture (Marie-wound Skin Appearance) Assessed, Assessed, Assessed Maceration Weeping -Color (Marie-wound Skin Appearance) Assessed Assessed Assessed -Temperature (Marie-wound Skin No Abnormality No Abnormality No Abnormality Appearance) (Pt Warm) (Pt Warm) (Pt Warm) -Tenderness on Palpation (Marie-wound No No No Skin Appearance) -Ulcer Cleansing Wound Cleanser Wound Cleanser Wound Cleanser -Foul Odor after Cleansing No No No -Anesthetic Used 5% Lidocaine 5% Lidocaine 5% Lidocaine Gel Gel Gel #18 Left medial LE cluster -Combined with other wound No No No -Current Size (cm) - Length 0.1 0.1 0.1 -Current Size (cm) - Width 0.1 0.1 0.1 -Current Size (cm) - Depth 0.1 0.1 0.1 -Total Square Cm 0.01 0.01 0.01 -Photo Taken Yes Yes Yes -Tunneling No No No -Undermining/Tunneling No No No -Circular Undermining No No No -Exudate Amt Large Large Large -Exudate Type Serosanguineous Serosanguineous Serosanguineous -Wound Margin Distinct, Distinct, Distinct, Outline Outline Outline Attached Attached Attached -Granulation Amt Medium (34-66%) Medium (34-66%) -Granulation Quality [place] -Slough/Fibrin Yes Yes Yes -Necrosis Amt Small (1-33%) Medium (34-66%) Medium (34-66%) -Necrotic Tissue Type Adherent Slough Adherent Slough Adherent Slough -Structure Exposed N/A N/A N/A -Texture (Marie-wound Skin Appearance) Assessed Assessed, Assessed, Friable Excoriation, Friable -Moisture (Marie-wound Skin Appearance) Assessed, Assessed Assessed Maceration -Color (Marie-wound Skin Appearance) Assessed Assessed Assessed -Temperature (Marie-wound Skin No Abnormality No Abnormality No Abnormality Appearance) (Pt Warm) (Pt Warm) (Pt Warm) -Tenderness on Palpation (Marie-wound No No No Skin Appearance) -Ulcer Cleansing Wound Cleanser Wound Cleanser Wound Cleanser -Foul Odor after Cleansing No No No -Anesthetic Used 5% Lidocaine 5% Lidocaine 5% Lidocaine Gel Gel Gel Lower Limb Edema Present Yes Yes Right Calf (cm) 44 44 Right Ankle (cm) 30.2 30.5 Left Calf (cm) 44.5 44 Left Ankle (cm) 30.8 29.5 WC - Nurse 2 - General Ulcer CM Notes Start: 07/12/25 11:52 Freq: Status: Active Protocol: Activity Type Activity Date Activity User E-sign Co-sign Detail Recorded Client Recorded Date Recorded By Document 07/12/25 12:10 GM [id number] 07/12/25 12:20 GM Document 07/19/25 12:32 GM [id number] 07/19/25 12:39 GM Document 07/26/25 12:59 GM [id number] 07/26/25 13:04 GM Edit Result 07/26/25 12:59 GM (1) [id number] 07/26/25 13:12 GM (1) #22 R Medial/Lateral leg - Foul Odor after Cleansing Yes, Due to => No Product Use => - Dermabond => 3 07/12/25 07/19/25 07/26/25 12:10 12:32 12:59 Wound Center Nurse 2 #24 Left Lateral Leg -Time 12:11 -Correct Patient Yes -Correct Side, Site, Position Yes -Tunneling No -Undermining/Tunneling No -Circular Undermining No -Wound/Ulcer Outcome Healed- Epithelialized #22 R Medial/Lateral leg -Time 12:11 12:32 13:00 -Correct Patient Yes Yes Yes -Correct Side, Site, Position Yes Yes Yes -Correct Procedure Yes Yes Yes -Procedure Performed Yes Yes Yes -Type of Procedure Debridement Debridement Debridement -Clinical Debridement Subcutaneous Subcutaneous Subcutaneous -Tissue Removed Subcutaneous Subcutaneous Subcutaneous -Post Debridement (cm) - Length 10 10.5 10.5 -Post Debridement (cm) - Width 25 24.8 26.0 -Post Debridement (cm) - Depth 0.1 0.1 0.1 -Total Square (Post) (cm) 250 260.40 273.00 -Area of Debridement (cm) - Length 10 10.5 10.5 -Area of Debridement (cm) - Width 25 24.8 26.0 -Total Square (Area) (cm) 250 260.40 273.00 -Tunneling No No No -Undermining/Tunneling No No No -Circular Undermining No No No -Wound/Ulcer Outcome Not Healed Not Healed Not Healed -Ulcer Cleansing Rinsed/ Rinsed/ Rinsed/ Irrigated with Irrigated with Irrigated with Saline Saline Saline -Foul Odor after Cleansing No No No -Bioengineered Tissue Yes Yes Yes -Type of Bioengineered Tissue Theraskin Theraskin Theraskin -Expiration Date 03/28/27 10/07/27 02/03/29 -Product Lot Number [id number] -Percent Used 100 100 100 -Lot number of Saline Used [id number] -Bleeding Controlled with Pressure Pressure Pressure -Treatment Response Procedure Procedure Procedure Tolerated Well Tolerated Well Tolerated Well -Offloading No No -Debridement - Subq, 1st 20sq cm No No No -Apply Skin Sub - 1st 100 sq cm - Legs 1 1 1 -Dermabond 3 3 -Theraskin - 103TSXL (116 SQ CM) 116 116 116 Application 1-4 (per sq cm) #18 Left medial LE cluster -Time 12:13 12:32 13:02 -Correct Patient Yes Yes Yes -Correct Side, Site, Position Yes Yes Yes -Correct Procedure Yes Yes Yes -Procedure Performed Yes Yes Yes -Type of Procedure Debridement Debridement Debridement -Clinical Debridement Subcutaneous Subcutaneous Subcutaneous -Tissue Removed Subcutaneous Subcutaneous Subcutaneous -Post Debridement (cm) - Length 6.9 7.0 7.0 -Post Debridement (cm) - Width 12.5 12.0 12.0 -Post Debridement (cm) - Depth 0.1 0.1 0.1 -Total Square (Post) (cm) 86.25 84.00 84.00 -Area of Debridement (cm) - Length 6.9 7.0 7.0 -Area of Debridement (cm) - Width 12.5 12.0 12.0 -Total Square (Area) (cm) 86.25 84.00 84.00 -Tunneling No No No -Undermining/Tunneling No No No -Circular Undermining No No No -Wound/Ulcer Outcome Not Healed Not Healed Not Healed -Ulcer Cleansing Rinsed/ Rinsed/ Rinsed/ Irrigated with Irrigated with Irrigated with Saline Saline Saline -Foul Odor after Cleansing No No No -Bioengineered Tissue No No No -Bleeding Controlled with Pressure Pressure Pressure -Treatment Response Procedure Procedure Procedure Tolerated Well Tolerated Well Tolerated Well -Offloading No No No -Debridement - Subq, 1st 20sq cm Yes Yes Yes -Debridement, SubQ, ea addt'l 20sq cm 4 4 4 or part thereof Pain Scale: 0-10 Numeric Is Patient Pain Free? Yes Yes Yes - Nurse 3 - General Ulcer D/C NN Start: 07/12/25 11:52 Freq: Status: Active Protocol: Activity Type Activity Date Activity User E-sign Co-sign Detail Recorded Client Recorded Date Recorded By Document 07/12/25 13:07 RB [id number] 07/12/25 13:10 RB Document 07/19/25 13:19 RB [id number] 07/19/25 13:21 RB Document 07/26/25 13:51 RB [id number] 07/26/25 13:53 RB 07/12/25 07/19/25 07/26/25 13:07 13:19 13:51 Wound Care Center Nurse 3 #22 R Medial/Lateral leg -Primary Dressing Applied Optilok 6.5x10 Optilok 6.5x10 Optilok 6.5x10 -Primary Dressing Covered/Secured with Dry Gauze & Roll Gauze, Secured with Tape -Optilok 6.5x10 2 2 2 #18 Left medial LE cluster -Ulcer Cleansing Wound Cleanser Rinsed/ Irrigated with Saline -Primary Dressing Applied Fibracol Plus Aquacel Extra, Aquacel Extra, 4x4,Optilok 6. Fibracol Plus Fibracol Plus 5x10 4x4,Optilok 5x5 4x4 1/2 -Primary Dressing Covered/Secured with Dry Gauze & Roll Gauze, Secured with Tape -Aquacel Extra 1 1 -Fibracol Plus 4x4 1 1 1 -Optilok 5x5 1/2 1 -Optilok 6.5x10 1 BLE -Stockings Yes: circaids Yes: pt own Yes: PT OWN circaids CIRCAIDS Treatment Response Procedure Procedure Tolerated Well Tolerated Well Pain Scale: 0-10 Numeric Is Patient Pain Free? Yes Yes Yes - Visit Discharge Discharge Condition Stable Stable Ambulatory Status Ambulatory Ambulatory, [facility] Private Auto Medication Reconcilliation completed & No No provided to patient/care provider Clinical Summary of Care Provided Yes Yes Additional Wound Wound debrided: right medial leg Laterality: Right Type of Debridement: Excisional debridement Anesthesia Used: 4% Lidocaine Solution, 5% Lidocaine Gel and Cetacaine Depth: Down to and including healthy tissue and in the subcutaneous layer Percentage of wound debrided: 100 Instrument Used: - (Misonix ultrasonic debridement) Tissue Removed: Yellow slough, devitalized tissue Severity: Fat Layer Exposed Amount of bleeding with debridement: Mild Bleeding Controlled with: Compression and gauze Patient tolerated procedure: Patient tolerated procedure well Operative Diagnosis: Theraksin #5 applied to right medial LE ulcer per core rescuer guidelines. Assessment/Plan Assessment/Plan (1) Lymphedema: CODE(S): I89.0 - Lymphedema, not elsewhere classified (2) Hypertension: CODE(S): I10 - Essential (primary) hypertension QUALIFIERS: Hypertension type: primary hypertension Qualified Code(s): I10 - Essential (primary) hypertension (3) Hyperlipidemia: CODE(S): E78.5 - Hyperlipidemia, unspecified QUALIFIERS: Hyperlipidemia type: mixed hyperlipidemia Qualified Code(s): E78.2 - Mixed hyperlipidemia (4) History of DVT (deep vein thrombosis): CODE(S): Z86.718 - Personal history of other venous thrombosis and embolism (5) Venous insufficiency (chronic) (peripheral): CODE(S): I87.2 - Venous insufficiency (chronic) (peripheral) (6) Venous ulcer of left lower extremity with varicose veins: CODE(S): I83.029 - Varicose veins of left lower extremity with ulcer of unspecified site (7) Edema: CODE(S): R60.9 - Edema, unspecified QUALIFIERS: Edema type: unspecified Qualified Code(s): R60.9 - Edema, unspecified (8) 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 At home wound-care instructions: Theraskin #5 applied today as above to right medial LE ulcer using 100% of product but only covering approx. 80% of ulcer. This was secured with skin glue and then covered with wound veil and secured with steri-strips. Will continue to use Circaid compression garments and cover with super absorber and kerlix to right LE and left LE changed every other day. Left medial LE will be dressed with Fibracol and calcium alginate and ABD and kerlix for moderate to heavy drainage. This will be changed every other day. He is aware to keep this intact and dry. Due to his chronic lymphedema and being unable to don traditional compression stockings and the presence of venous ulcers on his LE b/l, it is medically necessary for him to have Circaid compression garments. He is using Circaid compression to both legs. I suspect he is not very compliant with his lymphedema pumps and not getting adequate compression with tubigrips and Circaids. Due to the delayed progress in wound healing of his venous ulcers, we discussed applying for advanced wound healing product for healing his ulcer. Due to the size of his ulcer, Theraskin application approval was requested from his insurance as it is medically necessary for salvaging his limb and healing his ulcer. He has previously had treatment with Theraskin to his left lower leg with improvement in October 2023. Insurance only allowed 3 applications at that time. It is medically necessary for application of Theraskin to his right lower extremity ulcer to salvage his limb and heal his ulcer and this has been approved for 10 applications. He is using Circaid compression wraps. Off-loading: The patient was instructed to avoid pressure and friction on the affected areas. Reposition every 2 hours at minimum. Avoid prolonged standing and/or dangling of legs. When seated, feet should be elevated at chest level. Frequent ambulation is encouraged. Encouraged lymphedema pump use. Diet: Patient encouraged to increase protein intake while taking caution to avoid high carbohydrate and/or sugar intake. Labs/cultures/imaging: Wound culture showed Pseudomonas, Escherichia hermannii, Raoultella planticola, Vancomycin Resist. E. faecalis, Alcaligenes faecalis ssp faeca, Staphylococcus cohnii urealyti and anaerobic bacteria on 06/15/24 and he completed on Levofloxacin and Augmentin. Wound culture taken today on right lateral ulcer which showed Raoultella planticola, Staph hemolyticus, staph epidermidis and morganella morganii but no anaeroobic bacteria, Levofloxacin and doxycyline were prescribed based on culture results. Labs ordered 10/19/2024. Vitamin D was low A1C 5.4% Wound culture from 12/07/24 was positive for Providencia stuartii, Vancomycin resistant E. Faecalis, Corynebacterium striatum and completed Augmentin orally. Follow-up: Return in 1 week for wound care follow up and have dressing changed by home health Mondays. Return sooner or report to the emergency room should symptoms worsen, or new symptoms arise. Note: [employer] speech recognition regional environmental manager software was used to create portions of this document. Sound-alike and misspelled words, as well as other regional environmental manager errors may be contained in the documentation.
--- NOTE | 2025-07-30 09:07 | WC ---
PHOTO-RLE 07/26/25
--- NOTE | 2025-07-30 09:07 | WC ---
PHOTO-RLE 07/26/25
[2025-08-02 11:54] VITALS: BP 125/81; PULSE 61; RESP 18; TEMP 35.5
--- NOTE | 2025-08-02 12:27 | WC ---
PHOTO-LLE 08/02/25
--- NOTE | 2025-08-02 12:28 | WC ---
PHOTO-RLE 08/02/25
--- NOTE | 2025-08-02 12:28 | WC ---
PHOTO-RLE 08/02/25
--- NOTE | 2025-08-02 14:54 | PCM.WC.PN ---
History of Present Illness Date of Service: 08/02/25 Chief Complaint: venous ulcers of left lower extremity and right lower extremity History of Wound: Mauricio is a 69 yo gentleman who is here today for evaluation of ulcers to to his bilateral lower legs. He has been treated multiple times in the past at the wound healing center for similar ulcers. The left LE ulcer started after he developed increased swelling and blisters of left leg in October and the right leg started sometime at the end of October. He was seen at PCP's office a culture was taken and it was resistant to several antibiotics. He was treated initially with Levaquin but had myalgias and then was treated with doxycycline which he finished 2 days ago. He denies improvement and is having swelling to his left calf and thigh. He has been having swelling to both lower extremities for many years and it has worsened over the last few months. He has not been compliant with compression. He has had increased pain especially in the left leg. He has clear yellow drainage and redness without odor or warmth. He is anti-coagulated on coumadin. He has been washing with Dial soap and witch ifrah. He had been using Collagen at times and using Calcium Alginate and covering with ABD pads during October. He was treated with 3M compression and Aquacel Ag. He was referred to the wound center for ongoing treatment. His ulcers have moderate to heavy drainage. He was in the hospital from 11/30/22 until 12/09/22 for treatment of cellulitis and edema. He underwent treatment with Vancomycin and IV lasix and compression. Discharged on 12/09/22. He returned to his assisted living apartment on Tuesday12/21/22. Wound culture from 12/07/24 was positive for Providencia stuartii, Vancomycin resistant E. Faecalis, Corynebacterium striatum and completed Augmentin orally. His edema is better this week and he is tolerating Circaid compression. 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 He continues to use his lymphedema pumps but continues to have pain with use of these pumps. 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 Subjective Subjective Mauricio is a 70-year-old male with longstanding history of chronic venous ulceration to the left lower extremity and a right lower extremity venous ulcer that is nearly circumferential. There has been small improvement since his last visit. He has tolerated treatment with Theraskin #5. His edema is stable today. He is more compliant with elevation but still is not compliant with compression pump frequency due to pain with use of pumps. He has been applying KATE wraps over his Circaids for extra compression. Objective Data Objective Data Vital Signs: Vital Signs Temp Pulse Resp BP 96 F L 61 18 125/81 H 08/02/25 11:54 08/02/25 11:54 08/02/25 11:54 08/02/25 11:54 Physical Exam Const alert, oriented x3 and no apparent distress General Appearance: cooperative and comfortable HEENT normocephalic and head/scalp atraumatic Lymph Lymphatic: lymphedema moderate Resp normal respiratory effort Effort and Inspection: able to speak in complete sentences Cardio regular rate and regular rhythm Extremity Extremity Narrative: His ulcers are painful and the right lower leg remains more swollen than his left but there is good granulation tissue throughout and mild amount of slough that is nearly completely removed post - debridement, edges of ulcers are beveled without rolled borders bilaterally, Theraskin was intact to right lower leg and in place prior to debridement General Extremity: edema bilateral lower extremity Details: severe Skin General Skin Exam: venous stasis and dermatitis Wounds: wounds noted Psych mental status grossly normal, thought process normal, cooperative and affect normal Debridement Note Debridement Note Wound debrided: left medial LE ulcer Laterality: Left Type of Debridement: Excisional debridement Anesthesia Used: 5% Lidocaine Gel and Cetacaine Depth: Down to and including healthy tissue and in the subcutaneous layer Percentage of wound debrided: 100 Instrument Used: - (Misonix ultrasonic debridement) Tissue Removed: Yellow slough, devitalized tissue Severity: Fat Layer Exposed Amount of bleeding with debridement: Mild Bleeding Controlled with: Compression and gauze Patient tolerated procedure: Patient tolerated procedure well Post-Debridement Measurements and Additional Note: Post-Debridement Measurements/Treatment WC - Nurse 1 - General Ulcer Assessment Start: 07/12/25 11:52 Freq: Status: Active Protocol: ONDINA Activity Type Activity Date Activity User E-sign Co-sign Detail Recorded Client Recorded Date Recorded By Document 07/12/25 11:52 RB [id number] 07/12/25 11:56 RB Document 07/19/25 12:05 RB [id number] 07/19/25 12:07 RB Document 07/26/25 12:21 RB [id number] 07/26/25 12:25 RB Document 08/02/25 11:54 RB [id number] 08/02/25 11:57 RB 07/12/25 07/19/25 07/26/25 11:52 12:05 12:21 WC - Today's Visit Information Type of service Follow-up Visit Follow-up Visit Follow-up Visit (Physician/OCCUPATIONAL HEALTH AND SAFETY ADVISER (Physician/OCCUPATIONAL HEALTH AND SAFETY ADVISER (Physician/OCCUPATIONAL HEALTH AND SAFETY ADVISER ) ) ) Arrival Mode Ambulatory Ambulatory, Ambulatory, Walker Walker Transfer Assistance None Manual None Patient Identification Verified (Name & Yes Yes Yes ) Patient Requires Transmission-Based No No No Precautions Vital Signs Temperature (97.8 F-99.1 F) 97 F L 96.4 F L 97.3 F L Temperature Source Temporal Temporal Temporal Pulse Rate (60-100) 58 L 54 L 66 Pulse Location Monitor Monitor Monitor Respiratory Rate (12-18) 18 18 18 Respiratory rate source Observation Observation Observation Blood Pressure (90/60-120/80) 143/84 H 145/83 H 144/85 H Blood Pressure Mean (mm Hg) 103 103 104 Source Monitor Monitor Monitor Position Semi-Fowlers Semi-Fowlers Semi-Fowlers Blood Pressure Location Left Arm Left Arm Left Arm History Since Last Visit- (Skip if this is Patient's initial visit) Have you changed medications since your No No No last visit? Any new allergies or adverse reactions No No No Had a fall/change in ADL's that may No No No increase risk of falls Signs or symptoms of abuse and/or No No No neglect since last visit Have you been in the hospital since your No No No last visit? Has dressing in place as prescribed Yes Yes Yes Has compression in place as prescribed Yes Yes Yes Has offloadiing in place as prescribed N/A N/A N/A Experienced any changes in pain level or No No No management Left Footwear Regular Shoe Regular Shoe Right Footwear Regular Shoe Regular Shoe Pain Scale: 0-10 Numeric Is Patient Pain Free? Yes Yes No BILAT LE -Description Burning, Crushing -Intensity 6 -Duration (hours) Acute -Pain Behavior Guarding, Irritability -Pain Aggravating Factors Changing Position -Alleviating Factors/Interventions Medication -Effectiveness of Alleviating Factor/ Minimally Intervention effective 08/02/25 11:54 WC - Today's Visit Information Type of service Follow-up Visit (Physician/OCCUPATIONAL HEALTH AND SAFETY ADVISER ) Arrival Mode Ambulatory, Walker Transfer Assistance None Patient Identification Verified (Name & Yes ) Patient Requires Transmission-Based No Precautions Vital Signs Temperature (97.8 F-99.1 F) 96 F L Temperature Source Temporal Pulse Rate (60-100) 61 Pulse Location Monitor Respiratory Rate (12-18) 18 Respiratory rate source Observation Blood Pressure (90/60-120/80) 125/81 H Blood Pressure Mean (mm Hg) 95 Source Monitor Position Semi-Fowlers Blood Pressure Location Left Arm History Since Last Visit- (Skip if this is Patient's initial visit) Have you changed medications since your No last visit? Any new allergies or adverse reactions No Had a fall/change in ADL's that may No increase risk of falls Signs or symptoms of abuse and/or No neglect since last visit Have you been in the hospital since your No last visit? Has dressing in place as prescribed Yes Has compression in place as prescribed Yes Has offloadiing in place as prescribed N/A Experienced any changes in pain level or No management Left Footwear Regular Shoe Right Footwear Regular Shoe Pain Scale: 0-10 Numeric Is Patient Pain Free? Yes PEPITO MALHOTRA -Description -Intensity -Duration (hours) -Pain Behavior -Pain Aggravating Factors -Alleviating Factors/Interventions -Effectiveness of Alleviating Factor/ Intervention WC - Nurse 1 - General Ulcer Measurement Start: 07/12/25 11:52 Freq: Status: Active Protocol: Activity Type Activity Date Activity User E-sign Co-sign Detail Recorded Client Recorded Date Recorded By Document 07/12/25 11:52 RB [id number] 07/12/25 11:56 RB Document 07/19/25 12:05 RB [id number] 07/19/25 12:07 RB Document 07/26/25 12:21 RB [id number] 07/26/25 12:25 RB Document 08/02/25 11:54 RB [id number] 08/02/25 11:57 RB 07/12/25 07/19/25 07/26/25 11:52 12:05 12:21 Wound Center Nurse 1 #24 Left Lateral Leg -Combined with other wound No -Current Size (cm) - Length 17 -Current Size (cm) - Width 13 -Current Size (cm) - Depth 0.1 -Total Square Cm 221 -Photo Taken Yes -Tunneling No -Undermining/Tunneling No -Circular Undermining No -Exudate Amt Large -Exudate Type Serosanguineous -Wound Margin Distinct, Outline Attached -Granulation Amt Large (67-100%) -Granulation Quality [place] -Slough/Fibrin Yes -Necrosis Amt Small (1-33%) -Necrotic Tissue Type Adherent Slough -Structure Exposed N/A -Texture (Marie-wound Skin Appearance) Assessed -Moisture (Marie-wound Skin Appearance) Assessed, Maceration -Color (Marie-wound Skin Appearance) Assessed -Temperature (Marie-wound Skin No Abnormality Appearance) (Pt Warm) -Tenderness on Palpation (Marie-wound No Skin Appearance) -Ulcer Cleansing Wound Cleanser -Foul Odor after Cleansing No -Anesthetic Used 5% Lidocaine Gel #22 R Medial/Lateral leg -Combined with other wound No No No -Current Size (cm) - Length 8 0.1 0.1 -Current Size (cm) - Width 29 0.1 0.1 -Current Size (cm) - Depth 0.1 0.1 0.1 -Total Square Cm 232 0.01 0.01 -Date of Last Picture (Recall this field) -Photo Taken Yes Yes -Tunneling No No No -Undermining/Tunneling No No No -Circular Undermining No No No -Exudate Amt Large Large Medium -Exudate Type Serosanguineous Serosanguineous Serosanguineous -Wound Margin Distinct, Distinct, Distinct, Outline Outline Outline Attached Attached Attached -Granulation Amt Medium (34-66%) Large (67-100%) Medium (34-66%) -Granulation Quality [place] Keyport [place] -Slough/Fibrin Yes Yes Yes -Necrosis Amt Medium (34-66%) Small (1-33%) Medium (34-66%) -Necrotic Tissue Type Adherent Slough Adherent Slough Adherent Slough -Structure Exposed N/A N/A N/A -Texture (Marie-wound Skin Appearance) Assessed Assessed, Assessed, Friable Friable -Moisture (Marie-wound Skin Appearance) Assessed, Assessed, Assessed Maceration Weeping -Color (Marie-wound Skin Appearance) Assessed Assessed Assessed -Temperature (Marie-wound Skin No Abnormality No Abnormality No Abnormality Appearance) (Pt Warm) (Pt Warm) (Pt Warm) -Tenderness on Palpation (Marie-wound No No No Skin Appearance) -Ulcer Cleansing Wound Cleanser Wound Cleanser Wound Cleanser -Foul Odor after Cleansing No No No -Anesthetic Used 5% Lidocaine 5% Lidocaine 5% Lidocaine Gel Gel Gel #18 Left medial LE cluster -Combined with other wound No No No -Current Size (cm) - Length 0.1 0.1 0.1 -Current Size (cm) - Width 0.1 0.1 0.1 -Current Size (cm) - Depth 0.1 0.1 0.1 -Total Square Cm 0.01 0.01 0.01 -Date of Last Picture (Recall this field) -Photo Taken Yes Yes Yes -Tunneling No No No -Undermining/Tunneling No No No -Circular Undermining No No No -Exudate Amt Large Large Large -Exudate Type Serosanguineous Serosanguineous Serosanguineous -Wound Margin Distinct, Distinct, Distinct, Outline Outline Outline Attached Attached Attached -Granulation Amt Medium (34-66%) Medium (34-66%) -Granulation Quality Key[place] Keyport [place] -Slough/Fibrin Yes Yes Yes -Necrosis Amt Small (1-33%) Medium (34-66%) Medium (34-66%) -Necrotic Tissue Type Adherent Slough Adherent Slough Adherent Slough -Structure Exposed N/A N/A N/A -Texture (Marie-wound Skin Appearance) Assessed Assessed, Assessed, Friable Excoriation, Friable -Moisture (Marie-wound Skin Appearance) Assessed, Assessed Assessed Maceration -Color (Marie-wound Skin Appearance) Assessed Assessed Assessed -Temperature (Marie-wound Skin No Abnormality No Abnormality No Abnormality Appearance) (Pt Warm) (Pt Warm) (Pt Warm) -Tenderness on Palpation (Marie-wound No No No Skin Appearance) -Ulcer Cleansing Wound Cleanser Wound Cleanser Wound Cleanser -Foul Odor after Cleansing No No No -Anesthetic Used 5% Lidocaine 5% Lidocaine 5% Lidocaine Gel Gel Gel Lower Limb Edema Present Yes Yes Right Calf (cm) 44 44 Right Ankle (cm) 30.2 30.5 Left Calf (cm) 44.5 44 Left Ankle (cm) 30.8 29.5 08/02/25 11:54 Wound Center Nurse 1 #24 Left Lateral Leg -Combined with other wound -Current Size (cm) - Length -Current Size (cm) - Width -Current Size (cm) - Depth -Total Square Cm -Photo Taken -Tunneling -Undermining/Tunneling -Circular Undermining -Exudate Amt -Exudate Type -Wound Margin -Granulation Amt -Granulation Quality -Slough/Fibrin -Necrosis Amt -Necrotic Tissue Type -Structure Exposed -Texture (Marie-wound Skin Appearance) -Moisture (Marie-wound Skin Appearance) -Color (Marie-wound Skin Appearance) -Temperature (Marie-wound Skin Appearance) -Tenderness on Palpation (Marie-wound Skin Appearance) -Ulcer Cleansing -Foul Odor after Cleansing -Anesthetic Used #22 R Medial/Lateral leg -Combined with other wound No -Current Size (cm) - Length 0.1 -Current Size (cm) - Width 0.1 -Current Size (cm) - Depth 0.1 -Total Square Cm 0.01 -Date of Last Picture (Recall this 08/02/25 field) -Photo Taken Yes -Tunneling No -Undermining/Tunneling No -Circular Undermining No -Exudate Amt Large -Exudate Type Serosanguineous -Wound Margin Distinct, Outline Attached -Granulation Amt Medium (34-66%) -Granulation Quality [place] -Slough/Fibrin Yes -Necrosis Amt Medium (34-66%) -Necrotic Tissue Type Adherent Slough -Structure Exposed N/A -Texture (Marie-wound Skin Appearance) Assessed, Scarring -Moisture (Marie-wound Skin Appearance) Assessed -Color (Marie-wound Skin Appearance) Hemosiderin Staining -Temperature (Marie-wound Skin No Abnormality Appearance) (Pt Warm) -Tenderness on Palpation (Marie-wound No Skin Appearance) -Ulcer Cleansing Wound Cleanser -Foul Odor after Cleansing No -Anesthetic Used 5% Lidocaine Gel #18 Left medial LE cluster -Combined with other wound No -Current Size (cm) - Length 0.1 -Current Size (cm) - Width 0.1 -Current Size (cm) - Depth 0.1 -Total Square Cm 0.01 -Date of Last Picture (Recall this 08/02/25 field) -Photo Taken Yes -Tunneling No -Undermining/Tunneling No -Circular Undermining No -Exudate Amt Large -Exudate Type Serosanguineous -Wound Margin Distinct, Outline Attached -Granulation Amt Medium (34-66%) -Granulation Quality [place] -Slough/Fibrin Yes -Necrosis Amt Medium (34-66%) -Necrotic Tissue Type Adherent Slough -Structure Exposed N/A -Texture (Marie-wound Skin Appearance) Assessed, Scarring -Moisture (Marie-wound Skin Appearance) Assessed -Color (Marie-wound Skin Appearance) Assessed, Hemosiderin Staining -Temperature (Marie-wound Skin No Abnormality Appearance) (Pt Warm) -Tenderness on Palpation (Marie-wound No Skin Appearance) -Ulcer Cleansing Wound Cleanser -Foul Odor after Cleansing No -Anesthetic Used 5% Lidocaine Gel Lower Limb Edema Present Yes Right Calf (cm) 45 Right Ankle (cm) 30.5 Left Calf (cm) 43 Left Ankle (cm) 30 WC - Nurse 2 - General Ulcer CM Notes Start: 07/12/25 11:52 Freq: Status: Active Protocol: Activity Type Activity Date Activity User E-sign Co-sign Detail Recorded Client Recorded Date Recorded By Document 07/12/25 12:10 GM [id number] 07/12/25 12:20 GM Document 07/19/25 12:32 GM [id number] 07/19/25 12:39 GM Document 07/26/25 12:59 GM [id number] 07/26/25 13:04 GM Edit Result 07/26/25 12:59 GM (1) [id number] 07/26/25 13:12 GM Document 08/02/25 12:26 GM [id number] 08/02/25 12:33 GM Edit Result 08/02/25 12:26 GM (2) [id number] 08/02/25 12:55 GM (1) #22 R Medial/Lateral leg - Foul Odor after Cleansing Yes, Due to => No Product Use => - Dermabond => 3 (2) #22 R Medial/Lateral leg - Dermabond => 3 07/12/25 07/19/25 07/26/25 12:10 12:32 12:59 Wound Center Nurse 2 #24 Left Lateral Leg -Time 12:11 -Correct Patient Yes -Correct Side, Site, Position Yes -Tunneling No -Undermining/Tunneling No -Circular Undermining No -Wound/Ulcer Outcome Healed- Epithelialized #22 R Medial/Lateral leg -Time 12:11 12:32 13:00 -Correct Patient Yes Yes Yes -Correct Side, Site, Position Yes Yes Yes -Correct Procedure Yes Yes Yes -Procedure Performed Yes Yes Yes -Type of Procedure Debridement Debridement Debridement -Clinical Debridement Subcutaneous Subcutaneous Subcutaneous -Tissue Removed Subcutaneous Subcutaneous Subcutaneous -Post Debridement (cm) - Length 10 10.5 10.5 -Post Debridement (cm) - Width 25 24.8 26.0 -Post Debridement (cm) - Depth 0.1 0.1 0.1 -Total Square (Post) (cm) 250 260.40 273.00 -Area of Debridement (cm) - Length 10 10.5 10.5 -Area of Debridement (cm) - Width 25 24.8 26.0 -Total Square (Area) (cm) 250 260.40 273.00 -Tunneling No No No -Undermining/Tunneling No No No -Circular Undermining No No No -Wound/Ulcer Outcome Not Healed Not Healed Not Healed -Ulcer Cleansing Rinsed/ Rinsed/ Rinsed/ Irrigated with Irrigated with Irrigated with Saline Saline Saline -Foul Odor after Cleansing No No No -Bioengineered Tissue Yes Yes Yes -Type of Bioengineered Tissue Theraskin Theraskin Theraskin -Expiration Date 03/28/27 10/07/27 02/03/29 -Product Lot Number [id number] -Percent Used 100 100 100 -Lot number of Saline Used [id number] -Bleeding Controlled with Pressure Pressure Pressure -Treatment Response Procedure Procedure Procedure Tolerated Well Tolerated Well Tolerated Well -Offloading No No -Debridement - Subq, 1st 20sq cm No No No -Apply Skin Sub - 1st 100 sq cm - Legs 1 1 1 -Dermabond 3 3 -Theraskin - 103TSXL (116 SQ CM) 116 116 116 Application 1-4 (per sq cm) #18 Left medial LE cluster -Time 12:13 12:32 13:02 -Correct Patient Yes Yes Yes -Correct Side, Site, Position Yes Yes Yes -Correct Procedure Yes Yes Yes -Procedure Performed Yes Yes Yes -Type of Procedure Debridement Debridement Debridement -Clinical Debridement Subcutaneous Subcutaneous Subcutaneous -Tissue Removed Subcutaneous Subcutaneous Subcutaneous -Post Debridement (cm) - Length 6.9 7.0 7.0 -Post Debridement (cm) - Width 12.5 12.0 12.0 -Post Debridement (cm) - Depth 0.1 0.1 0.1 -Total Square (Post) (cm) 86.25 84.00 84.00 -Area of Debridement (cm) - Length 6.9 7.0 7.0 -Area of Debridement (cm) - Width 12.5 12.0 12.0 -Total Square (Area) (cm) 86.25 84.00 84.00 -Tunneling No No No -Undermining/Tunneling No No No -Circular Undermining No No No -Wound/Ulcer Outcome Not Healed Not Healed Not Healed -Ulcer Cleansing Rinsed/ Rinsed/ Rinsed/ Irrigated with Irrigated with Irrigated with Saline Saline Saline -Foul Odor after Cleansing No No No -Bioengineered Tissue No No No -Bleeding Controlled with Pressure Pressure Pressure -Treatment Response Procedure Procedure Procedure Tolerated Well Tolerated Well Tolerated Well -Offloading No No No -Debridement - Subq, 1st 20sq cm Yes Yes Yes -Debridement, SubQ, ea addt'l 20sq cm 4 4 4 or part thereof Pain Scale: 0-10 Numeric Is Patient Pain Free? Yes Yes Yes 08/02/25 12:26 Wound Center Nurse 2 #24 Left Lateral Leg -Time -Correct Patient -Correct Side, Site, Position -Tunneling -Undermining/Tunneling -Circular Undermining -Wound/Ulcer Outcome #22 R Medial/Lateral leg -Time 12:26 -Correct Patient Yes -Correct Side, Site, Position Yes -Correct Procedure Yes -Procedure Performed Yes -Type of Procedure Debridement -Clinical Debridement Subcutaneous -Tissue Removed Subcutaneous -Post Debridement (cm) - Length 10 -Post Debridement (cm) - Width 24.7 -Post Debridement (cm) - Depth 0.1 -Total Square (Post) (cm) 247.0 -Area of Debridement (cm) - Length 10 -Area of Debridement (cm) - Width 24.7 -Total Square (Area) (cm) 247.0 -Tunneling No -Undermining/Tunneling No -Circular Undermining No -Wound/Ulcer Outcome Not Healed -Ulcer Cleansing -Foul Odor after Cleansing No -Bioengineered Tissue Yes -Type of Bioengineered Tissue Theraskin -Expiration Date 01/31/27 -Product Lot Number [id number] -Percent Used 100 -Lot number of Saline Used [id number] -Bleeding Controlled with Pressure -Treatment Response Procedure Tolerated Well -Offloading No -Debridement - Subq, 1st 20sq cm No -Apply Skin Sub - 1st 100 sq cm - Legs 1 -Dermabond 3 -Theraskin - 103TSXL (116 SQ CM) 116 Application 1-4 (per sq cm) #18 Left medial LE cluster -Time 12:28 -Correct Patient Yes -Correct Side, Site, Position Yes -Correct Procedure Yes -Procedure Performed Yes -Type of Procedure Debridement -Clinical Debridement Subcutaneous -Tissue Removed Subcutaneous -Post Debridement (cm) - Length 6.8 -Post Debridement (cm) - Width 12.2 -Post Debridement (cm) - Depth 0.1 -Total Square (Post) (cm) 82.96 -Area of Debridement (cm) - Length 6.8 -Area of Debridement (cm) - Width 12.2 -Total Square (Area) (cm) 82.96 -Tunneling No -Undermining/Tunneling No -Circular Undermining No -Wound/Ulcer Outcome Not Healed -Ulcer Cleansing Rinsed/ Irrigated with Saline -Foul Odor after Cleansing No -Bioengineered Tissue No -Bleeding Controlled with -Treatment Response Procedure Tolerated Well -Offloading No -Debridement - Subq, 1st 20sq cm Yes -Debridement, SubQ, ea addt'l 20sq cm 4 or part thereof Pain Scale: 0-10 Numeric Is Patient Pain Free? Yes WC - Nurse 3 - General Ulcer D/C NN Start: 07/12/25 11:52 Freq: Status: Active Protocol: Activity Type Activity Date Activity User E-sign Co-sign Detail Recorded Client Recorded Date Recorded By Document 07/12/25 13:07 RB [id number] 07/12/25 13:10 RB Document 07/19/25 13:19 RB [id number] 07/19/25 13:21 RB Document 07/26/25 13:51 RB [id number] 07/26/25 13:53 RB Document 08/02/25 13:16 RB [id number] 08/02/25 13:17 RB 07/12/25 07/19/25 07/26/25 13:07 13:19 13:51 Wound Care Center Nurse 3 #22 R Medial/Lateral leg -Primary Dressing Applied Optilok 6.5x10 Optilok 6.5x10 Optilok 6.5x10 -Primary Dressing Covered/Secured with Dry Gauze & Roll Gauze, Secured with Tape -Optilok 6.5x10 2 2 2 #18 Left medial LE cluster -Ulcer Cleansing Wound Cleanser Rinsed/ Irrigated with Saline -Primary Dressing Applied Fibracol Plus Aquacel Extra, Aquacel Extra, 4x4,Optilok 6. Fibracol Plus Fibracol Plus 5x10 4x4,Optilok 5x5 4x4 1/2 -Primary Dressing Covered/Secured with Dry Gauze & Roll Gauze, Secured with Tape -Aquacel Extra 1 1 -Fibracol Plus 4x4 1 1 1 -Optilok 5x5 1/2 1 -Optilok 6.5x10 1 BLE -Stockings Yes: circaids Yes: pt own Yes: PT OWN circaids CIRCAIDS Treatment Response Procedure Procedure Tolerated Well Tolerated Well Pain Scale: 0-10 Numeric Is Patient Pain Free? Yes Yes Yes WC - Visit Discharge Discharge Condition Stable Stable Ambulatory Status Ambulatory Ambulatory, Walker Transportation [facility] transport Private Auto Medication Reconcilliation completed & No No provided to patient/care provider Clinical Summary of Care Provided Yes Yes 08/02/25 13:16 Wound Care Center Nurse 3 #22 R Medial/Lateral leg -Primary Dressing Applied Optilok 6.5x10 -Primary Dressing Covered/Secured with -Optilok 6.5x10 2 #18 Left medial LE cluster -Ulcer Cleansing -Primary Dressing Applied Optilok 5x5 1/2 -Primary Dressing Covered/Secured with -Aquacel Extra -Fibracol Plus 4x4 -Optilok 5x5 1/2 1 -Optilok 6.5x10 BLE -Stockings Yes: pt own circaids Treatment Response Procedure Tolerated Well Pain Scale: 0-10 Numeric Is Patient Pain Free? Yes WC - Visit Discharge Discharge Condition Stable Ambulatory Status Walker Transportation [facility] transport Medication Reconcilliation completed & No provided to patient/care provider Clinical Summary of Care Provided Yes Additional Wound Wound debrided: right medial leg Laterality: Right Type of Debridement: Excisional debridement Anesthesia Used: 4% Lidocaine Solution, 5% Lidocaine Gel and Cetacaine Depth: Down to and including healthy tissue and in the subcutaneous layer Percentage of wound debrided: 100 Instrument Used: - (Misonix ultrasonic debridement) Tissue Removed: Yellow slough, devitalized tissue Severity: Fat Layer Exposed Amount of bleeding with debridement: Mild Bleeding Controlled with: Compression and gauze Patient tolerated procedure: Patient tolerated procedure well Operative Diagnosis: Theraksin #6 applied to right medial LE ulcer per assembler tester guidelines. Assessment/Plan Assessment/Plan (1) Lymphedema: CODE(S): I89.0 - Lymphedema, not elsewhere classified (2) Hypertension: CODE(S): I10 - Essential (primary) hypertension QUALIFIERS: Hypertension type: primary hypertension Qualified Code(s): I10 - Essential (primary) hypertension (3) Hyperlipidemia: CODE(S): E78.5 - Hyperlipidemia, unspecified QUALIFIERS: Hyperlipidemia type: mixed hyperlipidemia Qualified Code(s): E78.2 - Mixed hyperlipidemia (4) History of DVT (deep vein thrombosis): CODE(S): Z86.718 - Personal history of other venous thrombosis and embolism (5) Venous insufficiency (chronic) (peripheral): CODE(S): I87.2 - Venous insufficiency (chronic) (peripheral) (6) Venous ulcer of left lower extremity with varicose veins: CODE(S): I83.029 - Varicose veins of left lower extremity with ulcer of unspecified site (7) Edema: CODE(S): R60.9 - Edema, unspecified QUALIFIERS: Edema type: unspecified Qualified Code(s): R60.9 - Edema, unspecified (8) 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 At home wound-care instructions: Theraskin #6 applied today as above to right medial LE ulcer using 100% of product but only covering approx. 90% of ulcer. This was secured with skin glue and then covered with wound veil and secured with steri-strips. Will continue to use Circaid compression garments and cover with super absorber and kerlix to right LE and left LE changed every other day. Left medial LE will be dressed with Fibracol and calcium alginate and ABD and kerlix for moderate to heavy drainage. This will be changed every other day. He is aware to keep this intact and dry. Due to his chronic lymphedema and being unable to don traditional compression stockings and the presence of venous ulcers on his LE b/l, it is medically necessary for him to have Circaid compression garments. He is using Circaid compression to both legs. I suspect he is not very compliant with his lymphedema pumps and not getting adequate compression with tubigrips and Circaids. Due to the delayed progress in wound healing of his venous ulcers, we discussed applying for advanced wound healing product for healing his ulcer. Due to the size of his ulcer, Theraskin application approval was requested from his insurance as it is medically necessary for salvaging his limb and healing his ulcer. He has previously had treatment with Theraskin to his left lower leg with improvement in October 2023. Insurance only allowed 3 applications at that time. It is medically necessary for application of Theraskin to his right lower extremity ulcer to salvage his limb and heal his ulcer and this has been approved for 10 applications. He is using Circaid compression wraps. Off-loading: The patient was instructed to avoid pressure and friction on the affected areas. Reposition every 2 hours at minimum. Avoid prolonged standing and/or dangling of legs. When seated, feet should be elevated at chest level. Frequent ambulation is encouraged. Encouraged lymphedema pump use. Diet: Patient encouraged to increase protein intake while taking caution to avoid high carbohydrate and/or sugar intake. Labs/cultures/imaging: Wound culture showed Pseudomonas, Escherichia hermannii, Raoultella planticola, Vancomycin Resist. E. faecalis, Alcaligenes faecalis ssp faeca, Staphylococcus cohnii urealyti and anaerobic bacteria on 06/15/24 and he completed on Levofloxacin and Augmentin. Wound culture taken today on right lateral ulcer which showed Raoultella planticola, Staph hemolyticus, staph epidermidis and morganella morganii but no anaeroobic bacteria, Levofloxacin and doxycyline were prescribed based on culture results. Labs ordered 10/19/2024. Vitamin D was low A1C 5.4% Wound culture from 12/07/24 was positive for Providencia stuartii, Vancomycin resistant E. Faecalis, Corynebacterium striatum and completed Augmentin orally. Follow-up: Return in 1 week for wound care follow up and have dressing changed by home health Mondays. Return sooner or report to the emergency room should symptoms worsen, or new symptoms arise. Note: [employer] speech recognition home and school visitor software was used to create portions of this document. Sound-alike and misspelled words, as well as other home and school visitor errors may be contained in the documentation.
[2025-08-09 11:38] VITALS: BP 137/76; PULSE 74; RESP 18; TEMP 36.3
--- NOTE | 2025-08-09 15:23 | PCM.WC.PN ---
History of Present Illness Date of Service: 08/09/25 Chief Complaint: venous ulcers of left lower extremity and right lower extremity History of Wound: Mauricio is a 69 yo gentleman who is here today for evaluation of ulcers to to his bilateral lower legs. He has been treated multiple times in the past at the wound healing center for similar ulcers. The left LE ulcer started after he developed increased swelling and blisters of left leg in October and the right leg started sometime at the end of October. He was seen at PCP's office a culture was taken and it was resistant to several antibiotics. He was treated initially with Levaquin but had myalgias and then was treated with doxycycline which he finished 2 days ago. He denies improvement and is having swelling to his left calf and thigh. He has been having swelling to both lower extremities for many years and it has worsened over the last few months. He has not been compliant with compression. He has had increased pain especially in the left leg. He has clear yellow drainage and redness without odor or warmth. He is anti-coagulated on coumadin. He has been washing with Dial soap and witch ifrah. He had been using Collagen at times and using Calcium Alginate and covering with ABD pads during October. He was treated with 3M compression and Aquacel Ag. He was referred to the wound center for ongoing treatment. His ulcers have moderate to heavy drainage. He was in the hospital from 11/30/22 until 12/09/22 for treatment of cellulitis and edema. He underwent treatment with Vancomycin and IV lasix and compression. Discharged on 12/09/22. He returned to his assisted living apartment on Tuesday12/21/22. Wound culture from 12/07/24 was positive for Providencia stuartii, Vancomycin resistant E. Faecalis, Corynebacterium striatum and completed Augmentin orally. His edema is better this week and he is tolerating Circaid compression. 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 He continues to use his lymphedema pumps but continues to have pain with use of these pumps. 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 Subjective Subjective Mauricio is a 70-year-old male with longstanding history of chronic venous ulceration to the left lower extremity and a right lower extremity venous ulcer that is nearly circumferential. There has been small improvement since his last visit. He has tolerated treatment with Theraskin #6. His edema is stable today. He is more compliant with elevation but still is not compliant with compression pump frequency due to pain with use of pumps. He has been applying KATE wraps over his Circaids for extra compression. Objective Data Objective Data Vital Signs: Vital Signs Temp Pulse Resp BP 97.4 F L 74 18 137/76 H 08/09/25 11:38 08/09/25 11:38 08/09/25 11:38 08/09/25 11:38 Physical Exam Const alert, oriented x3 and no apparent distress General Appearance: cooperative and comfortable HEENT normocephalic and head/scalp atraumatic Lymph Lymphatic: lymphedema moderate Resp normal respiratory effort Effort and Inspection: able to speak in complete sentences Cardio regular rate and regular rhythm Extremity Extremity Narrative: His ulcers are painful and the right lower leg remains more swollen than his left but there is good granulation tissue throughout and mild amount of slough that is nearly completely removed post - debridement, edges of ulcers are beveled without rolled borders bilaterally, Theraskin was intact to right lower leg and in place prior to debridement General Extremity: edema bilateral lower extremity Details: severe Skin General Skin Exam: venous stasis and dermatitis Wounds: wounds noted Psych mental status grossly normal, thought process normal, cooperative and affect normal Debridement Note Debridement Note Wound debrided: left medial LE ulcer Laterality: Left Type of Debridement: Excisional debridement Anesthesia Used: 5% Lidocaine Gel and Cetacaine Depth: Down to and including healthy tissue and in the subcutaneous layer Percentage of wound debrided: 100 Instrument Used: - (Misonix ultrasonic debridement) Tissue Removed: Yellow slough, devitalized tissue Severity: Fat Layer Exposed Amount of bleeding with debridement: Mild Bleeding Controlled with: Compression and gauze Patient tolerated procedure: Patient tolerated procedure well Post-Debridement Measurements and Additional Note: Post-Debridement Measurements/Treatment DEBBIE - Nurse 1 - General Ulcer Assessment Start: 07/12/25 11:52 Freq: Status: Active Protocol: ONDINA Activity Type Activity Date Activity User E-sign Co-sign Detail Recorded Client Recorded Date Recorded By Document 07/12/25 11:52 RB [id number] 07/12/25 11:56 RB Document 07/19/25 12:05 RB [id number] 07/19/25 12:07 RB Document 07/26/25 12:21 RB [id number] 07/26/25 12:25 RB Document 08/02/25 11:54 RB [id number] 08/02/25 11:57 RB Document 08/09/25 11:38 TS [id number] 08/09/25 12:00 TS 07/12/25 07/19/25 07/26/25 11:52 12:05 12:21 WC - Today's Visit Information Type of service Follow-up Visit Follow-up Visit Follow-up Visit (Physician/SALVAGE MEND WORKER (Physician/SALVAGE MEND WORKER (Physician/SALVAGE MEND WORKER ) ) ) Arrival Mode Ambulatory Ambulatory, Ambulatory, Walker Walker Transfer Assistance None Manual None Patient Identification Verified (Name & Yes Yes Yes ) Patient Requires Transmission-Based No No No Precautions Safety Precautions Vital Signs Temperature (97.8 F-99.1 F) 97 F L 96.4 F L 97.3 F L Temperature Source Temporal Temporal Temporal Pulse Rate (60-100) 58 L 54 L 66 Pulse Location Monitor Monitor Monitor Respiratory Rate (12-18) 18 18 18 Respiratory rate source Observation Observation Observation Blood Pressure (90/60-120/80) 143/84 H 145/83 H 144/85 H Blood Pressure Mean (mm Hg) 103 103 104 Source Monitor Monitor Monitor Position Semi-Fowlers Semi-Fowlers Semi-Fowlers Blood Pressure Location Left Arm Left Arm Left Arm History Since Last Visit- (Skip if this is Patient's initial visit) Have you changed medications since your No No No last visit? Any new allergies or adverse reactions No No No Had a fall/change in ADL's that may No No No increase risk of falls Signs or symptoms of abuse and/or No No No neglect since last visit Have you been in the hospital since your No No No last visit? Has dressing in place as prescribed Yes Yes Yes Has compression in place as prescribed Yes Yes Yes Has offloadiing in place as prescribed N/A N/A N/A Experienced any changes in pain level or No No No management Left Footwear Regular Shoe Regular Shoe Right Footwear Regular Shoe Regular Shoe Pain Scale: 0-10 Numeric Is Patient Pain Free? Yes Yes No BILAT LE -Description Burning, Crushing -Intensity 6 -Duration (hours) Acute -Pain Behavior Guarding, Irritability -Pain Aggravating Factors Changing Position -Alleviating Factors/Interventions Medication -Effectiveness of Alleviating Factor/ Minimally Intervention effective 08/02/25 08/09/25 11:54 11:38 WC - Today's Visit Information Type of service Follow-up Visit Follow-up Visit (Physician/SALVAGE MEND WORKER (Physician/SALVAGE MEND WORKER ) ) Arrival Mode Ambulatory, Ambulatory, Walker Walker Transfer Assistance None Patient Identification Verified (Name & Yes Yes ) Patient Requires Transmission-Based No Precautions Safety Precautions Fall Prevention Vital Signs Temperature (97.8 F-99.1 F) 96 F L 97.4 F L Temperature Source Temporal Temporal Pulse Rate (60-100) 61 74 Pulse Location Monitor Monitor Respiratory Rate (12-18) 18 18 Respiratory rate source Observation Observation Blood Pressure (90/60-120/80) 125/81 H 137/76 H Blood Pressure Mean (mm Hg) 95 96 Source Monitor Monitor Position Semi-Fowlers Sitting Blood Pressure Location Left Arm Left Arm History Since Last Visit- (Skip if this is Patient's initial visit) Have you changed medications since your No No last visit? Any new allergies or adverse reactions No No Had a fall/change in ADL's that may No No increase risk of falls Signs or symptoms of abuse and/or No No neglect since last visit Have you been in the hospital since your No No last visit? Has dressing in place as prescribed Yes Yes Has compression in place as prescribed Yes Yes Has offloadiing in place as prescribed N/A N/A Experienced any changes in pain level or No No management Left Footwear Regular Shoe Regular Shoe Right Footwear Regular Shoe Regular Shoe Pain Scale: 0-10 Numeric Is Patient Pain Free? Yes Yes PEPITO MALHOTRA -Description -Intensity -Duration (hours) -Pain Behavior -Pain Aggravating Factors -Alleviating Factors/Interventions -Effectiveness of Alleviating Factor/ Intervention - Nurse 1 - General Ulcer Measurement Start: 07/12/25 11:52 Freq: Status: Active Protocol: Activity Type Activity Date Activity User E-sign Co-sign Detail Recorded Client Recorded Date Recorded By Document 07/12/25 11:52 RB [id number] 07/12/25 11:56 RB Document 07/19/25 12:05 RB [id number] 07/19/25 12:07 RB Document 07/26/25 12:21 RB [id number] 07/26/25 12:25 RB Document 08/02/25 11:54 RB [id number] 08/02/25 11:57 RB Document 08/09/25 11:38 TS [id number] 08/09/25 12:00 TS 07/12/25 07/19/25 07/26/25 11:52 12:05 12:21 Wound Center Nurse 1 #24 Left Lateral Leg -Combined with other wound No -Current Size (cm) - Length 17 -Current Size (cm) - Width 13 -Current Size (cm) - Depth 0.1 -Total Square Cm 221 -Photo Taken Yes -Tunneling No -Undermining/Tunneling No -Circular Undermining No -Exudate Amt Large -Exudate Type Serosanguineous -Wound Margin Distinct, Outline Attached -Granulation Amt Large (67-100%) -Granulation Quality [place] -Slough/Fibrin Yes -Necrosis Amt Small (1-33%) -Necrotic Tissue Type Adherent Slough -Structure Exposed N/A -Texture (Marie-wound Skin Appearance) Assessed -Moisture (Marie-wound Skin Appearance) Assessed, Maceration -Color (Marie-wound Skin Appearance) Assessed -Temperature (Marie-wound Skin No Abnormality Appearance) (Pt Warm) -Tenderness on Palpation (Marie-wound No Skin Appearance) -Ulcer Cleansing Wound Cleanser -Foul Odor after Cleansing No -Anesthetic Used 5% Lidocaine Gel #22 R Medial/Lateral leg -Combined with other wound No No No -Current Size (cm) - Length 8 0.1 0.1 -Current Size (cm) - Width 29 0.1 0.1 -Current Size (cm) - Depth 0.1 0.1 0.1 -Total Square Cm 232 0.01 0.01 -Date of Last Picture (Recall this field) -Photo Taken Yes Yes -Tunneling No No No -Undermining/Tunneling No No No -Circular Undermining No No No -Exudate Amt Large Large Medium -Exudate Type Serosanguineous Serosanguineous Serosanguineous -Wound Margin Distinct, Distinct, Distinct, Outline Outline Outline Attached Attached Attached -Granulation Amt Medium (34-66%) Large (67-100%) Medium (34-66%) -Granulation Quality [place] -Slough/Fibrin Yes Yes Yes -Necrosis Amt Medium (34-66%) Small (1-33%) Medium (34-66%) -Necrotic Tissue Type Adherent Slough Adherent Slough Adherent Slough -Structure Exposed N/A N/A N/A -Texture (Marie-wound Skin Appearance) Assessed Assessed, Assessed, Friable Friable -Moisture (Marie-wound Skin Appearance) Assessed, Assessed, Assessed Maceration Weeping -Color (Marie-wound Skin Appearance) Assessed Assessed Assessed -Temperature (Marie-wound Skin No Abnormality No Abnormality No Abnormality Appearance) (Pt Warm) (Pt Warm) (Pt Warm) -Tenderness on Palpation (Marie-wound No No No Skin Appearance) -Ulcer Cleansing Wound Cleanser Wound Cleanser Wound Cleanser -Foul Odor after Cleansing No No No -Anesthetic Used 5% Lidocaine 5% Lidocaine 5% Lidocaine Gel Gel Gel #18 Left medial LE cluster -Combined with other wound No No No -Current Size (cm) - Length 0.1 0.1 0.1 -Current Size (cm) - Width 0.1 0.1 0.1 -Current Size (cm) - Depth 0.1 0.1 0.1 -Total Square Cm 0.01 0.01 0.01 -Date of Last Picture (Recall this field) -Photo Taken Yes Yes Yes -Tunneling No No No -Undermining/Tunneling No No No -Circular Undermining No No No -Exudate Amt Large Large Large -Exudate Type Serosanguineous Serosanguineous Serosanguineous -Wound Margin Distinct, Distinct, Distinct, Outline Outline Outline Attached Attached Attached -Granulation Amt Medium (34-66%) Medium (34-66%) -Granulation Quality [place] -Slough/Fibrin Yes Yes Yes -Necrosis Amt Small (1-33%) Medium (34-66%) Medium (34-66%) -Necrotic Tissue Type Adherent Slough Adherent Slough Adherent Slough -Structure Exposed N/A N/A N/A -Texture (Marie-wound Skin Appearance) Assessed Assessed, Assessed, Friable Excoriation, Friable -Moisture (Marie-wound Skin Appearance) Assessed, Assessed Assessed Maceration -Color (Marie-wound Skin Appearance) Assessed Assessed Assessed -Temperature (Marie-wound Skin No Abnormality No Abnormality No Abnormality Appearance) (Pt Warm) (Pt Warm) (Pt Warm) -Tenderness on Palpation (Marie-wound No No No Skin Appearance) -Ulcer Cleansing Wound Cleanser Wound Cleanser Wound Cleanser -Foul Odor after Cleansing No No No -Anesthetic Used 5% Lidocaine 5% Lidocaine 5% Lidocaine Gel Gel Gel Lower Limb Edema Present Yes Yes Right Calf (cm) 44 44 Right Ankle (cm) 30.2 30.5 Left Calf (cm) 44.5 44 Left Ankle (cm) 30.8 29.5 08/02/25 08/09/25 11:54 11:38 Wound Center Nurse 1 #24 Left Lateral Leg -Combined with other wound -Current Size (cm) - Length -Current Size (cm) - Width -Current Size (cm) - Depth -Total Square Cm -Photo Taken -Tunneling -Undermining/Tunneling -Circular Undermining -Exudate Amt -Exudate Type -Wound Margin -Granulation Amt -Granulation Quality -Slough/Fibrin -Necrosis Amt -Necrotic Tissue Type -Structure Exposed -Texture (Marie-wound Skin Appearance) -Moisture (Marie-wound Skin Appearance) -Color (Marie-wound Skin Appearance) -Temperature (Marie-wound Skin Appearance) -Tenderness on Palpation (Marie-wound Skin Appearance) -Ulcer Cleansing -Foul Odor after Cleansing -Anesthetic Used #22 R Medial/Lateral leg -Combined with other wound No -Current Size (cm) - Length 0.1 0.1 -Current Size (cm) - Width 0.1 0.1 -Current Size (cm) - Depth 0.1 0.1 -Total Square Cm 0.01 0.01 -Date of Last Picture (Recall this 08/02/25 08/09/25 field) -Photo Taken Yes Yes -Tunneling No No -Undermining/Tunneling No No -Circular Undermining No No -Exudate Amt Large Medium -Exudate Type Serosanguineous Serosanguineous -Wound Margin Distinct, Distinct, Outline Outline Attached Attached -Granulation Amt Medium (34-66%) Medium (34-66%) -Granulation Quality [place] -Slough/Fibrin Yes Yes -Necrosis Amt Medium (34-66%) Large (67-100%) -Necrotic Tissue Type Adherent Slough Adherent Slough -Structure Exposed N/A None/Limited to Skin Breakdown -Texture (Marie-wound Skin Appearance) Assessed, Assessed, Scarring Localized Edema -Moisture (Marie-wound Skin Appearance) Assessed Assessed, Maceration -Color (Marie-wound Skin Appearance) Hemosiderin Assessed Staining -Temperature (Marie-wound Skin No Abnormality No Abnormality Appearance) (Pt Warm) (Pt Warm) -Tenderness on Palpation (Marie-wound No No Skin Appearance) -Ulcer Cleansing Wound Cleanser Soap and Water -Foul Odor after Cleansing No No -Anesthetic Used 5% Lidocaine 5% Lidocaine Gel Gel #18 Left medial LE cluster -Combined with other wound No No -Current Size (cm) - Length 0.1 0.1 -Current Size (cm) - Width 0.1 0.1 -Current Size (cm) - Depth 0.1 0.1 -Total Square Cm 0.01 0.01 -Date of Last Picture (Recall this 08/02/25 08/09/25 field) -Photo Taken Yes Yes -Tunneling No No -Undermining/Tunneling No No -Circular Undermining No No -Exudate Amt Large Large -Exudate Type Serosanguineous Serosanguineous -Wound Margin Distinct, Distinct, Outline Outline Attached Attached -Granulation Amt Medium (34-66%) Medium (34-66%) -Granulation Quality [place] -Slough/Fibrin Yes -Necrosis Amt Medium (34-66%) Medium (34-66%) -Necrotic Tissue Type Adherent Slough Adherent Slough -Structure Exposed N/A None/Limited to Skin Breakdown -Texture (Marie-wound Skin Appearance) Assessed, Assessed, Scarring Excoriation -Moisture (Marie-wound Skin Appearance) Assessed Assessed -Color (Marie-wound Skin Appearance) Assessed, Assessed, Hemosiderin Erythema Staining -Temperature (Marie-wound Skin No Abnormality No Abnormality Appearance) (Pt Warm) (Pt Warm) -Tenderness on Palpation (Marie-wound No No Skin Appearance) -Ulcer Cleansing Wound Cleanser Soap and Water -Foul Odor after Cleansing No No -Anesthetic Used 5% Lidocaine 5% Lidocaine Gel Gel Lower Limb Edema Present Yes Right Calf (cm) 45 Right Ankle (cm) 30.5 Left Calf (cm) 43 Left Ankle (cm) 30 WC - Nurse 2 - General Ulcer CM Notes Start: 07/12/25 11:52 Freq: Status: Active Protocol: Activity Type Activity Date Activity User E-sign Co-sign Detail Recorded Client Recorded Date Recorded By Document 07/12/25 12:10 GM [id number] 07/12/25 12:20 GM Document 07/19/25 12:32 GM [id number] 07/19/25 12:39 GM Document 07/26/25 12:59 GM [id number] 07/26/25 13:04 GM Edit Result 07/26/25 12:59 GM (1) [id number] 07/26/25 13:12 GM Document 08/02/25 12:26 GM [id number] 08/02/25 12:33 GM Edit Result 08/02/25 12:26 GM (2) [id number] 08/02/25 12:55 GM Document 08/09/25 12:27 GM [id number] 08/09/25 12:38 GM Edit Result 08/09/25 12:27 GM (3) [id number] 08/09/25 13:06 GM (1) #22 R Medial/Lateral leg - Foul Odor after Cleansing Yes, Due to => No Product Use => - Dermabond => 3 (2) #22 R Medial/Lateral leg - Dermabond => 3 (3) #22 R Medial/Lateral leg - Dermabond => 4 07/12/25 07/19/25 07/26/25 12:10 12:32 12:59 Wound Center Nurse 2 #24 Left Lateral Leg -Time 12:11 -Correct Patient Yes -Correct Side, Site, Position Yes -Tunneling No -Undermining/Tunneling No -Circular Undermining No -Wound/Ulcer Outcome Healed- Epithelialized #22 R Medial/Lateral leg -Time 12:11 12:32 13:00 -Correct Patient Yes Yes Yes -Correct Side, Site, Position Yes Yes Yes -Correct Procedure Yes Yes Yes -Procedure Performed Yes Yes Yes -Type of Procedure Debridement Debridement Debridement -Clinical Debridement Subcutaneous Subcutaneous Subcutaneous -Tissue Removed Subcutaneous Subcutaneous Subcutaneous -Post Debridement (cm) - Length 10 10.5 10.5 -Post Debridement (cm) - Width 25 24.8 26.0 -Post Debridement (cm) - Depth 0.1 0.1 0.1 -Total Square (Post) (cm) 250 260.40 273.00 -Area of Debridement (cm) - Length 10 10.5 10.5 -Area of Debridement (cm) - Width 25 24.8 26.0 -Total Square (Area) (cm) 250 260.40 273.00 -Tunneling No No No -Undermining/Tunneling No No No -Circular Undermining No No No -Wound/Ulcer Outcome Not Healed Not Healed Not Healed -Ulcer Cleansing Rinsed/ Rinsed/ Rinsed/ Irrigated with Irrigated with Irrigated with Saline Saline Saline -Foul Odor after Cleansing No No No -Bioengineered Tissue Yes Yes Yes -Type of Bioengineered Tissue Theraskin Theraskin Theraskin -Expiration Date 03/28/27 10/07/27 02/03/29 -Product Lot Number [id number] -Percent Used 100 100 100 -Lot number of Saline Used [id number] -Bleeding Controlled with Pressure Pressure Pressure -Treatment Response Procedure Procedure Procedure Tolerated Well Tolerated Well Tolerated Well -Offloading No No -Debridement - Subq, 1st 20sq cm No No No -Apply Skin Sub - 1st 100 sq cm - Legs 1 1 1 -Dermabond 3 3 -Theraskin - 103TSXL (116 SQ CM) 116 116 116 Application 1-4 (per sq cm) #18 Left medial LE cluster -Time 12:13 12:32 13:02 -Correct Patient Yes Yes Yes -Correct Side, Site, Position Yes Yes Yes -Correct Procedure Yes Yes Yes -Procedure Performed Yes Yes Yes -Type of Procedure Debridement Debridement Debridement -Clinical Debridement Subcutaneous Subcutaneous Subcutaneous -Tissue Removed Subcutaneous Subcutaneous Subcutaneous -Post Debridement (cm) - Length 6.9 7.0 7.0 -Post Debridement (cm) - Width 12.5 12.0 12.0 -Post Debridement (cm) - Depth 0.1 0.1 0.1 -Total Square (Post) (cm) 86.25 84.00 84.00 -Area of Debridement (cm) - Length 6.9 7.0 7.0 -Area of Debridement (cm) - Width 12.5 12.0 12.0 -Total Square (Area) (cm) 86.25 84.00 84.00 -Tunneling No No No -Undermining/Tunneling No No No -Circular Undermining No No No -Wound/Ulcer Outcome Not Healed Not Healed Not Healed -Ulcer Cleansing Rinsed/ Rinsed/ Rinsed/ Irrigated with Irrigated with Irrigated with Saline Saline Saline -Foul Odor after Cleansing No No No -Bioengineered Tissue No No No -Bleeding Controlled with Pressure Pressure Pressure -Treatment Response Procedure Procedure Procedure Tolerated Well Tolerated Well Tolerated Well -Offloading No No No -Debridement - Subq, 1st 20sq cm Yes Yes Yes -Debridement, SubQ, ea addt'l 20sq cm 4 4 4 or part thereof Pain Scale: 0-10 Numeric Is Patient Pain Free? Yes Yes Yes 08/02/25 08/09/25 12:26 12:27 Wound Center Nurse 2 #24 Left Lateral Leg -Time -Correct Patient -Correct Side, Site, Position -Tunneling -Undermining/Tunneling -Circular Undermining -Wound/Ulcer Outcome #22 R Medial/Lateral leg -Time 12: 12:27 -Correct Patient Yes Yes -Correct Side, Site, Position Yes Yes -Correct Procedure Yes Yes -Procedure Performed Yes Yes -Type of Procedure Debridement Debridement -Clinical Debridement Subcutaneous Subcutaneous -Tissue Removed Subcutaneous Subcutaneous -Post Debridement (cm) - Length 10 10.2 -Post Debridement (cm) - Width 24.7 24.5 -Post Debridement (cm) - Depth 0.1 0.1 -Total Square (Post) (cm) 247.0 249.90 -Area of Debridement (cm) - Length 10 10.2 -Area of Debridement (cm) - Width 24.7 24.5 -Total Square (Area) (cm) 247.0 249.90 -Tunneling No No -Undermining/Tunneling No No -Circular Undermining No No -Wound/Ulcer Outcome Not Healed Not Healed -Ulcer Cleansing Rinsed/ Irrigated with Saline -Foul Odor after Cleansing No No -Bioengineered Tissue Yes Yes -Type of Bioengineered Tissue Theraskin Theraskin -Expiration Date 01/31/27 10/30/26 -Product Lot Number [id number] -Percent Used 100 100 -Lot number of Saline Used [id number] -Bleeding Controlled with Pressure Pressure -Treatment Response Procedure Procedure Tolerated Well Tolerated Well -Offloading No No -Debridement - Subq, 1st 20sq cm No No -Apply Skin Sub - 1st 100 sq cm - Legs 1 1 -Dermabond 3 4 -Theraskin - 103TSXL (116 SQ CM) 116 116 Application 1-4 (per sq cm) #18 Left medial LE cluster -Time 12:28 12:35 -Correct Patient Yes Yes -Correct Side, Site, Position Yes Yes -Correct Procedure Yes Yes -Procedure Performed Yes Yes -Type of Procedure Debridement Debridement -Clinical Debridement Subcutaneous Subcutaneous -Tissue Removed Subcutaneous Subcutaneous -Post Debridement (cm) - Length 6.8 6.8 -Post Debridement (cm) - Width 12.2 12.3 -Post Debridement (cm) - Depth 0.1 0.1 -Total Square (Post) (cm) 82.96 83.64 -Area of Debridement (cm) - Length 6.8 6.8 -Area of Debridement (cm) - Width 12.2 12.3 -Total Square (Area) (cm) 82.96 83.64 -Tunneling No No -Undermining/Tunneling No No -Circular Undermining No No -Wound/Ulcer Outcome Not Healed Not Healed -Ulcer Cleansing Rinsed/ Rinsed/ Irrigated with Irrigated with Saline Saline -Foul Odor after Cleansing No No -Bioengineered Tissue No No -Bleeding Controlled with Pressure -Treatment Response Procedure Procedure Tolerated Well Tolerated Well -Offloading No -Debridement - Subq, 1st 20sq cm Yes Yes -Debridement, SubQ, ea addt'l 20sq cm 4 4 or part thereof Pain Scale: 0-10 Numeric Is Patient Pain Free? Yes Yes - Nurse 3 - General Ulcer D/C NN Start: 07/12/25 11:52 Freq: Status: Active Protocol: Activity Type Activity Date Activity User E-sign Co-sign Detail Recorded Client Recorded Date Recorded By Document 07/12/25 13:07 RB [id number] 07/12/25 13:10 RB Document 07/19/25 13:19 RB [id number] 07/19/25 13:21 RB Document 07/26/25 13:51 RB [id number] 07/26/25 13:53 RB Document 08/02/25 13:16 RB [id number] 08/02/25 13:17 RB Document 08/09/25 14:29 RB [id number] 08/09/25 14:30 RB 07/12/25 07/19/25 07/26/25 13:07 13:19 13:51 Wound Care Center Nurse 3 #22 R Medial/Lateral leg -Primary Dressing Applied Optilok 6.5x10 Optilok 6.5x10 Optilok 6.5x10 -Primary Dressing Covered/Secured with Dry Gauze & Roll Gauze, Secured with Tape -Optilok 5x5 1/2 -Optilok 6.5x10 2 2 2 #18 Left medial LE cluster -Ulcer Cleansing Wound Cleanser Rinsed/ Irrigated with Saline -Primary Dressing Applied Fibracol Plus Aquacel Extra, Aquacel Extra, 4x4,Optilok 6. Fibracol Plus Fibracol Plus 5x10 4x4,Optilok 5x5 4x4 1/2 -Primary Dressing Covered/Secured with Dry Gauze & Roll Gauze, Secured with Tape -Aquacel Extra 1 1 -Fibracol Plus 4x4 1 1 1 -Optilok 5x5 1/2 1 -Optilok 6.5x10 1 BLE -Stockings Yes: circaids Yes: pt own Yes: PT OWN circaids CIRCAIDS Treatment Response Procedure Procedure Tolerated Well Tolerated Well Pain Scale: 0-10 Numeric Is Patient Pain Free? Yes Yes Yes WC - Visit Discharge Discharge Condition Stable Stable Ambulatory Status Ambulatory Ambulatory, Walker Transportation [facility] transport Private Auto Medication Reconcilliation completed & No No provided to patient/care provider Clinical Summary of Care Provided Yes Yes 08/02/25 08/09/25 13:16 14:29 Wound Care Center Nurse 3 #22 R Medial/Lateral leg -Primary Dressing Applied Optilok 6.5x10 Optilok 5x5 1/2 -Primary Dressing Covered/Secured with Dry Gauze & Roll Gauze -Optilok 5x5 1/2 1 -Optilok 6.5x10 2 #18 Left medial LE cluster -Ulcer Cleansing -Primary Dressing Applied Optilok 5x5 1/2 Optilok 6.5x10 -Primary Dressing Covered/Secured with Dry Gauze & Roll Gauze -Aquacel Extra -Fibracol Plus 4x4 -Optilok 5x5 1/2 1 -Optilok 6.5x10 2 BLE -Stockings Yes: pt own Yes: pt own circaids circaids Treatment Response Procedure Tolerated Well Pain Scale: 0-10 Numeric Is Patient Pain Free? Yes Yes WC - Visit Discharge Discharge Condition Stable Ambulatory Status Walker Transportation [facility] transport Medication Reconcilliation completed & No provided to patient/care provider Clinical Summary of Care Provided Yes Additional Wound Wound debrided: right medial leg Laterality: Right Type of Debridement: Excisional debridement Anesthesia Used: 4% Lidocaine Solution, 5% Lidocaine Gel and Cetacaine Depth: Down to and including healthy tissue and in the subcutaneous layer Percentage of wound debrided: 100 Instrument Used: - (Misonix ultrasonic debridement) Tissue Removed: Yellow slough, devitalized tissue Severity: Fat Layer Exposed Amount of bleeding with debridement: Mild Bleeding Controlled with: Compression and gauze Patient tolerated procedure: Patient tolerated procedure well Operative Diagnosis: Theraksin #6 applied to 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 Assessment/Plan Assessment/Plan (1) Lymphedema: CODE(S): I89.0 - Lymphedema, not elsewhere classified (2) Hypertension: CODE(S): I10 - Essential (primary) hypertension QUALIFIERS: Hypertension type: primary hypertension Qualified Code(s): I10 - Essential (primary) hypertension (3) Hyperlipidemia: CODE(S): E78.5 - Hyperlipidemia, unspecified QUALIFIERS: Hyperlipidemia type: mixed hyperlipidemia Qualified Code(s): E78.2 - Mixed hyperlipidemia (4) History of DVT (deep vein thrombosis): CODE(S): Z86.718 - Personal history of other venous thrombosis and embolism (5) Venous insufficiency (chronic) (peripheral): CODE(S): I87.2 - Venous insufficiency (chronic) (peripheral) (6) Venous ulcer of left lower extremity with varicose veins: CODE(S): I83.029 - Varicose veins of left lower extremity with ulcer of unspecified site (7) Edema: CODE(S): R60.9 - Edema, unspecified QUALIFIERS: Edema type: unspecified Qualified Code(s): R60.9 - Edema, unspecified (8) 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 At home wound-care instructions: Theraskin #7 applied today as above to right medial LE ulcer using 100% of product but only covering approx. 90% of ulcer. This was secured with skin glue and then covered with wound veil and secured with steri-strips. Will continue to use Circaid compression garments and cover with super absorber and kerlix to right LE and left LE changed every other day. Left medial LE will be dressed with Fibracol and calcium alginate and ABD and kerlix for moderate to heavy drainage. This will be changed every other day. He is aware to keep this intact and dry. Due to his chronic lymphedema and being unable to don traditional compression stockings and the presence of venous ulcers on his LE b/l, it is medically necessary for him to have Circaid compression garments. He is using Circaid compression to both legs. I suspect he is not very compliant with his lymphedema pumps and not getting adequate compression with tubigrips and Circaids. Due to the delayed progress in wound healing of his venous ulcers, we discussed applying for advanced wound healing product for healing his ulcer. Due to the size of his ulcer, Theraskin application approval was requested from his insurance as it is medically necessary for salvaging his limb and healing his ulcer. He has previously had treatment with Theraskin to his left lower leg with improvement in October 2023. Insurance only allowed 3 applications at that time. It is medically necessary for application of Theraskin to his right lower extremity ulcer to salvage his limb and heal his ulcer and this has been approved for 10 applications. He is using Circaid compression wraps. Off-loading: The patient was instructed to avoid pressure and friction on the affected areas. Reposition every 2 hours at minimum. Avoid prolonged standing and/or dangling of legs. When seated, feet should be elevated at chest level. Frequent ambulation is encouraged. Encouraged lymphedema pump use. Diet: Patient encouraged to increase protein intake while taking caution to avoid high carbohydrate and/or sugar intake. Labs/cultures/imaging: Wound culture showed Pseudomonas, Escherichia hermannii, Raoultella planticola, Vancomycin Resist. E. faecalis, Alcaligenes faecalis ssp faeca, Staphylococcus cohnii urealyti and anaerobic bacteria on 06/15/24 and he completed on Levofloxacin and Augmentin. Wound culture taken today on right lateral ulcer which showed Raoultella planticola, Staph hemolyticus, staph epidermidis and morganella morganii but no anaeroobic bacteria, Levofloxacin and doxycyline were prescribed based on culture results. Labs ordered 10/19/2024. Vitamin D was low A1C 5.4% Wound culture from 12/07/24 was positive for Providencia stuartii, Vancomycin resistant E. Faecalis, Corynebacterium striatum and completed Augmentin orally. Follow-up: Return in 1 week for wound care follow up and have dressing changed by home health Mondays. Return sooner or report to the emergency room should symptoms worsen, or new symptoms arise. Note: [employer] speech recognition senior loan processor software was used to create portions of this document. Sound-alike and misspelled words, as well as other senior loan processor errors may be contained in the documentation.
--- NOTE | 2025-08-12 10:29 | WC ---
PHOTO-RIGHT MED/LAT LEG 08/09/25
--- NOTE | 2025-08-12 11:38 | WC ---
PHOTO-RIGHT MED LOWER LATERAL LEG 08/09/25
--- NOTE | 2025-08-12 11:40 | WC ---
PHOTO-LEFT MED LEG CLUSTER 08/09/25
== END 2025-08-09 23:59 | disposition home or self-care (01) ==
LOC: WC 11:45
PROVIDERS: PCP Family Medicine; Referring Provider Family Medicine; Visit Provider Family Medicine
DX: I83.018 Varicose veins of right lower extremity with ulcer other part of lower leg (principal); L97.812 Non-pressure chronic ulcer of other part of right lower leg with fat layer exposed; I83.028 Varicose veins of left lower extremity with ulcer other part of lower leg; L97.822 Non-pressure chronic ulcer of other part of left lower leg with fat layer exposed; R60.0 Localized edema; Z86.718 Personal history of other venous thrombosis and embolism; E78.2 Mixed hyperlipidemia; I10 Essential (primary) hypertension; I89.0 Lymphedema, not elsewhere classified; Z79.01 Long term (current) use of anticoagulants
CPT/HCPCS: 11042; 11045; 15273; Q4121

== ENCOUNTER 2025-08-20 08:40 | Outpatient (CLI) | payer MEDICARE, OTHER, SELFPAY ==
--- NOTE | 2025-08-20 08:43 | AAVD_ITS ---
Reason For Study Reason For Study: S/P IVC and CIV stents Inferior Vena Cava Proximal inferior vena cava measures 1.22 x 1.28 cm. in the cross-sectional axis. Proximal inferior vena cava measures 1.28 cm. in the longitudinal axis. IVC mid, 2.03 x 2.77 cm. IVC mid, stent 1, 1.26 x 1.16 x 1.46 cm. IVC mid, stent 2. 1.08 x 0.99 x 1.03 cm. IVC distal, 2.25 x 1.62 cm IVC distal, stent 1, 1.13 x 1.03 x 1.34 cm. IVC distal, stent 2, 0.95 x 1.03 x 0.94 cm. The inferior vena cava has spontaneous, phasic flow throughout. Left Common Iliac Vein Left common iliac vein measures 1.19 x 1.18 cm. in the cross-sectional axis. Left common iliac vein measures 1.22 cm. in the longitudinal axis. The left common iliac vein has spontaneous, phasic flow throughout. CIV stent noted. Right Common Iliac Vein Right common iliac vein measures 1.13 x 1.15 cm cm. in the cross-sectional axis. Right common iliac vein measures 1.14 cm. in the longitudinal axis. The right common iliac vein has spontaneous, phasic flow throughout. CIV stent noted. Procedure Aorta IVC Iliac vasculature or bypass grafts [id number]. Exam performed in department. VL/Abd Aortic/IVC Duplex scan Interpretation Summary Patent inferior vena cava and bilateral iliac vein stents with normal venous fl ow pattern. Ordering Physician: Maria R Beasley Referring Physician: Patricia Garcia Performed By: Kasia Oro RVT
== END 2025-08-20 23:59 | disposition home or self-care (01) ==
LOC: CVS 08:41
PROVIDERS: PCP Family Medicine; Referring Provider Physician Assistant; Visit Provider Physician Assistant
DX: Z48.812 Encounter for surgical aftercare following surgery on the circulatory system (principal)
CPT/HCPCS: 93978

== ENCOUNTER 2025-08-30 11:15 | Outpatient (RCR) | payer MEDICARE, OTHER, SELFPAY ==
[2025-08-16 10:26] VITALS: BP 136/77; PULSE 72; RESP 17; TEMP 35.9
[2025-08-16 10:42] VITALS: BP 136/77; PULSE 72; RESP 16; TEMP 35.8
--- NOTE | 2025-08-16 14:32 | PN.PCM_ITS ---
History of Present Illness Date of Service: 08/16/25 Chief Complaint: venous ulcers of left lower extremity and right lower extremity History of Wound: Mauricio is a 69 yo gentleman who is here today for evaluation of ulcers to to his bilateral lower legs. He has been treated multiple times in the past at the wound healing center for similar ulcers. The left LE ulcer started after he developed increased swelling and blisters of left leg in October and the right leg started sometime at the end of October. He was seen at PCP's office a culture was taken and it was resistant to several antibiotics. He was treated initially with Levaquin but had myalgias and then was treated with doxycycline which he finished 2 days ago. He denies improvement and is having swelling to his left calf and thigh. He has been having swelling to both lower extremities for many years and it has worsened over the last few months. He has not been compliant with compression. He has had increased pain especially in the left leg. He has clear yellow drainage and redness without odor or warmth. He is anti- coagulated on coumadin. He has been washing with Dial soap and witch ifrah. He had been using Collagen at times and using Calcium Alginate and covering with ABD pads during October. He was treated with 3M compression and Aquacel Ag. He was referred to the wound center for ongoing treatment. His ulcers have moderate to heavy drainage. He was in the hospital from 11/30/22 until 12/09/22 for treatment of cellulitis and edema. He underwent treatment with Vancomycin and IV lasix and compression. Discharged on 12/09/22. He returned to his assisted living apartment on Tuesday12/21/22. Wound culture from 12/07/24 was positive for Providencia stuartii, Vancomycin resistant E. Faecalis, Corynebacterium striatum and completed Augmentin orally. His edema is better this week and he is tolerating Circaid compression. 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 He continues to use his lymphedema pumps but continues to have pain with use of these pumps. 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 Subjective Subjective Mauricio is a 70-year-old male with longstanding history of chronic venous ulceration to the left lower extremity and a right lower extremity venous ulcer that is nearly circumferential. There has been small improvement since his last visit. He has tolerated treatment with Theraskin #7. His edema is stable today. He is more compliant with elevation but still is not compliant with compression pump frequency due to pain with use of pumps. He has been applying KATE wraps over his Circaids for extra compression. Objective Data Objective Data Vital Signs: Vital Signs Temp Pulse Resp BP O2 Del Method 96.5 F L 72 16 136/77 H Room Air 08/16/25 10:42 08/16/25 10:42 08/16/25 10:42 08/16/25 10:42 08/16/25 10:42 Oxygen Delivery Method Room Air Physical Exam Const alert, oriented x3 and no apparent distress General Appearance: cooperative and comfortable HEENT normocephalic and head/scalp atraumatic Lymph Lymphatic: lymphedema moderate Resp normal respiratory effort Effort and Inspection: able to speak in complete sentences Cardio regular rate and regular rhythm Extremity General Extremity: edema bilateral lower extremity Details: severe Skin General Skin Exam: venous stasis and dermatitis Wounds: wounds noted Psych mental status grossly normal, thought process normal, cooperative and affect normal Debridement Note Debridement Note Wound debrided: left medial LE ulcer Laterality: Left Type of Debridement: Excisional debridement Anesthesia Used: 5% Lidocaine Gel and Cetacaine Depth: Down to and including healthy tissue and in the subcutaneous layer Percentage of wound debrided: 100 Instrument Used: - (Misonix ultrasonic debridement) Tissue Removed: Yellow slough, devitalized tissue Severity: Fat Layer Exposed Amount of bleeding with debridement: Mild Bleeding Controlled with: Compression and gauze Patient tolerated procedure: Patient tolerated procedure well Post-Debridement Measurements and Additional Note: Post-Debridement Measurements/Treatment - Nurse 1 - General Ulcer Assessment Start: 08/16/25 10:26 Freq: Status: Active Protocol: ONDINA Activity Type Activity Date Activity User E-sign Co-sign Detail Recorded Client Recorded Date Recorded By Document 08/16/25 10:26 TS [id number] 08/16/25 10:42 TS Document 08/16/25 10:42 TS [id number] 08/16/25 10:46 TS 08/16/25 08/16/25 10:26 10:42 - Today's Visit Information Type of service Follow-up Visit Follow-up Visit (Physician/ACTION FINISHER (Physician/ACTION FINISHER ) ) Arrival Mode Walker Walker Patient Identification Verified (Name & Yes Yes ) Patient Requires Transmission-Based No No Precautions Safety Precautions Fall Prevention Fall Prevention Vital Signs Temperature (97.8 F-99.1 F) 96.7 F L 96.5 F L Temperature Source Temporal Temporal Pulse Rate (60-100) 72 72 Pulse Location Monitor Monitor Respiratory Rate (12-18) 17 16 Respiratory rate source Observation Observation Oxygen Delivery Method Room Air Room Air Blood Pressure (90/60-120/80) 136/77 H 136/77 H Blood Pressure Mean (mm Hg) 96 96 Source Monitor Monitor Position Semi-Fowlers Semi-Fowlers Blood Pressure Location Left Arm Left Arm History Since Last Visit- (Skip if this is Patient's initial visit) Have you changed medications since your No No last visit? Any new allergies or adverse reactions No No Had a fall/change in ADL's that may No No increase risk of falls Signs or symptoms of abuse and/or No No neglect since last visit Have you been in the hospital since your No No last visit? Has dressing in place as prescribed Yes Yes Has compression in place as prescribed Yes Yes Has offloadiing in place as prescribed N/A N/A Experienced any changes in pain level or No No management Left Footwear Regular Shoe Regular Shoe Right Footwear Regular Shoe Regular Shoe Pain Scale: 0-10 Numeric Is Patient Pain Free? Yes Yes WC - Nurse 1 - General Ulcer Measurement Start: 08/16/25 10:26 Freq: Status: Active Protocol: Activity Type Activity Date Activity User E-sign Co-sign Detail Recorded Client Recorded Date Recorded By Document 08/16/25 10:42 [id number] 08/16/25 10:46 08/16/25 10:42 Wound Center Nurse 1 #24 Left Lateral Leg -Combined with other wound No -Current Size (cm) - Length 0.1 -Current Size (cm) - Width 0.1 -Current Size (cm) - Depth 0.1 -Total Square Cm 0.01 -Photo Taken No -Tunneling No -Undermining/Tunneling No -Exudate Amt Large -Exudate Type Serosanguineous -Wound Margin Distinct, Outline Attached -Structure Exposed None/Limited to Skin Breakdown -Texture (Marie-wound Skin Appearance) Assessed -Moisture (Marie-wound Skin Appearance) Assessed -Color (Marie-wound Skin Appearance) Assessed -Temperature (Marie-wound Skin No Abnormality Appearance) (Pt Warm) -Tenderness on Palpation (Marie-wound No Skin Appearance) -Ulcer Cleansing Soap and Water -Anesthetic Used 5% Lidocaine Gel #22 R Medial/Lateral leg -Combined with other wound No -Current Size (cm) - Length 0.1 -Current Size (cm) - Width 0.1 -Current Size (cm) - Depth 1 -Total Square Cm 0.01 -Date of Last Picture (Recall this 08/16/25 field) -Photo Taken Yes -Tunneling No -Undermining/Tunneling No -Exudate Amt Large -Exudate Type Serosanguineous -Wound Margin Distinct, Outline Attached -Granulation Quality Pale,Red -Slough/Fibrin Yes -Necrosis Amt Large (67-100%) -Texture (Marie-wound Skin Appearance) Assessed -Moisture (Marie-wound Skin Appearance) Assessed -Color (Marie-wound Skin Appearance) Assessed -Temperature (Marie-wound Skin No Abnormality Appearance) (Pt Warm) -Ulcer Cleansing Soap and Water -Foul Odor after Cleansing No -Anesthetic Used 5% Lidocaine Gel #18 Left medial LE cluster -Combined with other wound No -Current Size (cm) - Length 0.1 -Current Size (cm) - Width 0.1 -Current Size (cm) - Depth 0.1 -Total Square Cm 0.01 -Date of Last Picture (Recall this 08/16/25 field) -Photo Taken Yes -Tunneling No -Undermining/Tunneling No -Exudate Amt Small -Exudate Type Serosanguineous -Wound Margin Distinct, Outline Attached -Granulation Amt Medium (34-66%) -Granulation Quality [place],Red -Slough/Fibrin Yes -Necrosis Amt Medium (34-66%) -Structure Exposed None/Limited to Skin Breakdown -Texture (Marie-wound Skin Appearance) Assessed -Moisture (Marie-wound Skin Appearance) Assessed -Color (Marie-wound Skin Appearance) Assessed -Temperature (Marie-wound Skin No Abnormality Appearance) (Pt Warm) -Tenderness on Palpation (Marie-wound No Skin Appearance) -Foul Odor after Cleansing No -Anesthetic Used 5% Lidocaine Gel WC - Nurse 2 - General Ulcer CM Notes Start: 08/16/25 10:26 Freq: Status: Active Protocol: Activity Type Activity Date Activity User E-sign Co-sign Detail Recorded Client Recorded Date Recorded By Document 08/16/25 10:55 GM [id number] 08/16/25 11:08 GM Edit Result 08/16/25 10:55 GM (1) [id number] 08/16/25 11:28 GM (1) #22 R Medial/Lateral leg - Dermabond => 3 08/16/25 10:55 Wound Center Nurse 2 #24 Left Lateral Leg -Time 10:59 -Correct Patient Yes -Correct Side, Site, Position Yes -Correct Procedure Yes -Procedure Performed Yes -Type of Procedure Debridement -Clinical Debridement Subcutaneous -Tissue Removed Subcutaneous -Tunneling No -Undermining/Tunneling No -Circular Undermining No -Wound/Ulcer Outcome Not Healed -Ulcer Cleansing Rinsed/ Irrigated with Saline -Foul Odor after Cleansing No -Bioengineered Tissue No -Bleeding Controlled with Pressure -Treatment Response Procedure Tolerated Well -Offloading No #22 R Medial/Lateral leg -Time 10:59 -Correct Patient Yes -Correct Side, Site, Position Yes -Correct Procedure Yes -Procedure Performed Yes -Type of Procedure Debridement -Clinical Debridement Subcutaneous -Tissue Removed Subcutaneous -Tunneling No -Undermining/Tunneling No -Circular Undermining No -Wound/Ulcer Outcome Not Healed -Ulcer Cleansing Rinsed/ Irrigated with Saline -Foul Odor after Cleansing No -Bioengineered Tissue Yes -Type of Bioengineered Tissue Theraskin -Expiration Date 07/29/27 -Product Lot Number [id number] -Percent Used 100 -Lot number of Saline Used [id number] -Bleeding Controlled with Pressure -Treatment Response Procedure Tolerated Well -Offloading No -Debridement - Subq, 1st 20sq cm No -Apply Skin Sub - 1st 100 sq cm - Legs 1 -Dermabond 3 -Theraskin - [id number] (116 SQ CM) 116 Application 1-4 (per sq cm) #18 Left medial LE cluster -Time 11:01 -Correct Patient Yes -Correct Side, Site, Position Yes -Correct Procedure Yes -Procedure Performed Yes -Type of Procedure Debridement -Clinical Debridement Subcutaneous -Tissue Removed Subcutaneous -Post Debridement (cm) - Length 6.0 -Post Debridement (cm) - Width 12.7 -Post Debridement (cm) - Depth 0.1 -Total Square (Post) (cm) 76.20 -Area of Debridement (cm) - Length 6.0 -Area of Debridement (cm) - Width 12.7 -Total Square (Area) (cm) 76.20 -Tunneling No -Undermining/Tunneling No -Circular Undermining No -Wound/Ulcer Outcome Not Healed -Ulcer Cleansing Rinsed/ Irrigated with Saline -Foul Odor after Cleansing No -Bioengineered Tissue No -Bleeding Controlled with Pressure -Treatment Response Procedure Tolerated Well -Offloading No -Debridement - Subq, 1st 20sq cm Yes -Debridement, SubQ, ea addt'l 20sq cm 3 or part thereof Pain Scale: 0-10 Numeric Is Patient Pain Free? Yes - Nurse 3 - General Ulcer D/C NN Start: 08/16/25 10:26 Freq: Status: Active Protocol: Activity Type Activity Date Activity User E-sign Co-sign Detail Recorded Client Recorded Date Recorded By Document 08/16/25 11:53 [id number] 08/16/25 11:54 08/16/25 11:53 Wound Care Center Nurse 3 #22 R Medial/Lateral leg -Primary Dressing Applied Aquacel Extra, Optilok 6.5x10 -Aquacel Extra 2 -Optilok 6.5x10 2 #18 Left medial LE cluster -Primary Dressing Applied Aquacel Extra, Optilok 5x5 1/2 -Aquacel Extra 1 -Optilok 5x5 1/2 1 BLE -Stockings Yes: pt own circaids Treatment Response Procedure Tolerated Well Pain Scale: 0-10 Numeric Is Patient Pain Free? Yes - Visit Discharge Discharge Condition Stable Ambulatory Status Ambulatory, Walker Transportation Private Auto Medication Reconcilliation completed & No provided to patient/care provider Clinical Summary of Care Provided Yes Additional Wound Wound debrided: right medial leg Laterality: Right Type of Debridement: Excisional debridement Anesthesia Used: 4% Lidocaine Solution, 5% Lidocaine Gel and Cetacaine Depth: Down to and including healthy tissue and in the subcutaneous layer Percentage of wound debrided: 100 Instrument Used: - (Misonix ultrasonic debridement) Tissue Removed: Yellow slough, devitalized tissue Severity: Fat Layer Exposed Amount of bleeding with debridement: Mild Bleeding Controlled with: Compression and gauze Patient tolerated procedure: Patient tolerated procedure well Operative Diagnosis: Theraksin #6 applied to right medial LE ulcer per stem crusher guidelines. Assessment/Plan Assessment/Plan (1) Lymphedema: CODE(S): I89.0 - Lymphedema, not elsewhere classified (2) Hypertension: CODE(S): I10 - Essential (primary) hypertension QUALIFIERS: Hypertension type: primary hypertension Qualified Code(s): I10 - Essential (primary) hypertension (3) Hyperlipidemia: CODE(S): E78.5 - Hyperlipidemia, unspecified QUALIFIERS: Hyperlipidemia type: mixed hyperlipidemia Qualified Code(s): E78.2 - Mixed hyperlipidemia (4) History of DVT (deep vein thrombosis): CODE(S): Z86.718 - Personal history of other venous thrombosis and embolism (5) Venous insufficiency (chronic) (peripheral): CODE(S): I87.2 - Venous insufficiency (chronic) (peripheral) (6) Venous ulcer of left lower extremity with varicose veins: CODE(S): I83.029 - Varicose veins of left lower extremity with ulcer of unspecified site (7) Edema: CODE(S): R60.9 - Edema, unspecified QUALIFIERS: Edema type: unspecified Qualified Code(s): R60.9 - Edema, unspecified (8) 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 At home wound-care instructions: Theraskin #8 applied today as above to right medial LE ulcer using 100% of product but only covering approx. 90% of ulcer. This was secured with skin glue and then covered with wound veil and secured with steri-strips. Will continue to use Circaid compression garments and cover with super absorber and kerlix to right LE and left LE changed every other day. Left medial LE will be dressed with Fibracol and calcium alginate and ABD and kerlix for moderate to heavy drainage. This will be changed every other day. He is aware to keep this intact and dry. Due to his chronic lymphedema and being unable to don traditional compression stockings and the presence of venous ulcers on his LE b/l, it is medically necessary for him to have Circaid compression garments. He is using Circaid compression to both legs. I suspect he is not very compliant with his lymphedema pumps and not getting adequate compression with tubigrips and Circaids. Due to the delayed progress in wound healing of his venous ulcers, we discussed applying for advanced wound healing product for healing his ulcer. Due to the size of his ulcer, Theraskin application approval was requested from his insurance as it is medically necessary for salvaging his limb and healing his ulcer. He has previously had treatment with Theraskin to his left lower leg with improvement in October 2023. Insurance only allowed 3 applications at that time. It is medically necessary for application of Theraskin to his right lower extremity ulcer to salvage his limb and heal his ulcer and this has been approved for 10 applications. He is using Circaid compression wraps. Off-loading: The patient was instructed to avoid pressure and friction on the affected areas. Reposition every 2 hours at minimum. Avoid prolonged standing and/or dangling of legs. When seated, feet should be elevated at chest level. Frequent ambulation is encouraged. Encouraged lymphedema pump use. Diet: Patient encouraged to increase protein intake while taking caution to avoid high carbohydrate and/or sugar intake. Labs/cultures/imaging: Wound culture showed Pseudomonas, Escherichia hermannii, Raoultella planticola, Vancomycin Resist. E. faecalis, Alcaligenes faecalis ssp faeca, Staphylococcus cohnii urealyti and anaerobic bacteria on 06/15/24 and he completed on Levofloxacin and Augmentin. Wound culture taken today on right lateral ulcer which showed Raoultella planticola, Staph hemolyticus, staph epidermidis and morganella morganii but no anaeroobic bacteria, Levofloxacin and doxycyline were prescribed based on culture results. Labs ordered 10/19/2024. Vitamin D was low A1C 5.4% Wound culture from 12/07/24 was positive for Providencia stuartii, Vancomycin resistant E. Faecalis, C orynebacterium striatum and completed Augmentin orally. Follow-up: Return in 1 week for wound care follow up and have dressing changed by home health Mondays. Return sooner or report to the emergency room should symptoms worsen, or new symptoms arise. Note: [employer] speech recognition induction heating equipment setter software was used to create portions of this document. Sound-alike and misspelled words, as well as other induction heating equipment setter errors may be contained in the documentation.
--- NOTE | 2025-08-19 08:37 | WC ---
PHOTO-RIGHT MED LEG 08/16/25
--- NOTE | 2025-08-19 08:38 | WC ---
PHOTO-RIGHT LAT LEG 08/16/25
--- NOTE | 2025-08-19 08:39 | WC ---
PHOTO-LEFT [facility] 08/16/25
[2025-08-23 10:56] VITALS: BP 167/97; PULSE 75; RESP 18; TEMP 37.5
--- NOTE | 2025-08-23 14:37 | PCM.WC.PN ---
History of Present Illness Date of Service: 08/23/25 Chief Complaint: venous ulcers of left lower extremity and right lower extremity History of Wound: Mauricio is a 69 yo gentleman who is here today for evaluation of ulcers to to his bilateral lower legs. He has been treated multiple times in the past at the wound healing center for similar ulcers. The left LE ulcer started after he developed increased swelling and blisters of left leg in October and the right leg started sometime at the end of October. He was seen at PCP's office a culture was taken and it was resistant to several antibiotics. He was treated initially with Levaquin but had myalgias and then was treated with doxycycline which he finished 2 days ago. He denies improvement and is having swelling to his left calf and thigh. He has been having swelling to both lower extremities for many years and it has worsened over the last few months. He has not been compliant with compression. He has had increased pain especially in the left leg. He has clear yellow drainage and redness without odor or warmth. He is anti-coagulated on coumadin. He has been washing with Dial soap and witch ifrah. He had been using Collagen at times and using Calcium Alginate and covering with ABD pads during October. He was treated with 3M compression and Aquacel Ag. He was referred to the wound center for ongoing treatment. His ulcers have moderate to heavy drainage. He was in the hospital from 11/30/22 until 12/09/22 for treatment of cellulitis and edema. He underwent treatment with Vancomycin and IV lasix and compression. Discharged on 12/09/22. He returned to his assisted living apartment on Tuesday12/21/22. Wound culture from 12/07/24 was positive for Providencia stuartii, Vancomycin resistant E. Faecalis, Corynebacterium striatum and completed Augmentin orally. His edema is better this week and he is tolerating Circaid compression. 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 He continues to use his lymphedema pumps but continues to have pain with use of these pumps. 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 Subjective Subjective Mauricio is a 70-year-old male with longstanding history of chronic venous ulceration to the left lower extremity and a right lower extremity venous ulcer that is nearly circumferential. There has been small improvement since his last visit. He has tolerated treatment with Theraskin #8 to his right lower leg. His edema is stable today. He is more compliant with elevation but still is not compliant with compression pump frequency due to pain with use of pumps. He has been applying KATE wraps over his Circaids for extra compression. Objective Data Objective Data Vital Signs: Vital Signs Temp Pulse Resp BP O2 Del Method 99.5 F H 75 18 167/97 H Room Air 08/23/25 10:56 08/23/25 10:56 08/23/25 10:56 08/23/25 10:56 08/23/25 10:56 Oxygen Delivery Method Room Air Physical Exam Const alert, oriented x3 and no apparent distress General Appearance: cooperative and comfortable HEENT normocephalic and head/scalp atraumatic Lymph Lymphatic: lymphedema moderate Resp normal respiratory effort Effort and Inspection: able to speak in complete sentences Cardio regular rate and regular rhythm Extremity Extremity Narrative: His ulcers are painful and the right lower leg remains more swollen than his left but there is good granulation tissue throughout and mild amount of slough that is nearly completely removed post - debridement, edges of ulcers are beveled without rolled borders bilaterally, Theraskin was intact to right lower leg and in place prior to debridement General Extremity: edema bilateral lower extremity Details: severe Skin General Skin Exam: venous stasis and dermatitis Wounds: wounds noted Psych mental status grossly normal, thought process normal, cooperative and affect normal Debridement Note Debridement Note Wound debrided: left medial LE ulcer Laterality: Left Type of Debridement: Excisional debridement Anesthesia Used: 5% Lidocaine Gel and Cetacaine Depth: Down to and including healthy tissue and in the subcutaneous layer Percentage of wound debrided: 100 Instrument Used: - (Misonix ultrasonic debridement) Tissue Removed: Yellow slough, devitalized tissue Severity: Fat Layer Exposed Amount of bleeding with debridement: Mild Bleeding Controlled with: Compression and gauze Patient tolerated procedure: Patient tolerated procedure well Post-Debridement Measurements and Additional Note: Post-Debridement Measurements/Treatment DEBBIE - Nurse 1 - General Ulcer Assessment Start: 08/16/25 10:26 Freq: Status: Active Protocol: ONDINA Activity Type Activity Date Activity User E-sign Co-sign Detail Recorded Client Recorded Date Recorded By Document 08/16/25 10:26 TS [id number] 08/16/25 10:42 TS Document 08/16/25 10:42 TS [id number] 08/16/25 10:46 TS Document 08/23/25 10:56 [id number] 08/23/25 11:05 08/16/25 08/16/25 08/23/25 10:26 10:42 10:56 WC - Today's Visit Information Type of service Follow-up Visit Follow-up Visit Follow-up Visit (Physician/SLAT BASKET MAKER HELPER MACHINE (Physician/SLAT BASKET MAKER HELPER MACHINE (Physician/SLAT BASKET MAKER HELPER MACHINE ) ) ) Arrival Mode Walker Walker Walker Transfer Assistance Manual Patient Identification Verified (Name & Yes Yes Yes ) Patient Requires Transmission-Based No No Precautions Safety Precautions Fall Prevention Fall Prevention Vital Signs Temperature (97.8 F-99.1 F) 96.7 F L 96.5 F L 99.5 F H Temperature Source Temporal Temporal Temporal Pulse Rate (60-100) 72 72 75 Pulse Location Monitor Monitor Monitor Respiratory Rate (12-18) 17 16 18 Respiratory rate source Observation Observation Observation Oxygen Delivery Method Room Air Room Air Room Air Blood Pressure (90/60-120/80) 136/77 H 136/77 H 167/97 H Blood Pressure Mean (mm Hg) 96 96 120 Source Monitor Monitor Monitor Position Semi-Fowlers Semi-Fowlers Sitting Blood Pressure Location Left Arm Left Arm Right Forearm History Since Last Visit- (Skip if this is Patient's initial visit) Have you changed medications since your No No Yes last visit? Any new allergies or adverse reactions No No No Had a fall/change in ADL's that may No No No increase risk of falls Signs or symptoms of abuse and/or No No No neglect since last visit Have you been in the hospital since your No No No last visit? Has dressing in place as prescribed Yes Yes Yes Has compression in place as prescribed Yes Yes Yes Has offloadiing in place as prescribed N/A N/A N/A Experienced any changes in pain level or No No No management Left Footwear Regular Shoe Regular Shoe Regular Shoe Right Footwear Regular Shoe Regular Shoe Regular Shoe Pain Scale: 0-10 Numeric Is Patient Pain Free? Yes Yes No left lower leg -Description Crushing -Intensity 6 -Duration (hours) Chronic -Pain Behavior Withdrawal from Touch -Pain Aggravating Factors Exercise/ Activity -Alleviating Factors/Interventions Medication -Effectiveness of Alleviating Factor/ Moderately Intervention effective WC - Nurse 1 - General Ulcer Measurement Start: 08/16/25 10:26 Freq: Status: Active Protocol: Activity Type Activity Date Activity User E-sign Co-sign Detail Recorded Client Recorded Date Recorded By Document 08/16/25 10:42 TS [id number] 08/16/25 10:46 TS Document 08/23/25 10:56 GM [id number] 08/23/25 11:05 08/16/25 08/23/25 10:42 10:56 Wound Center Nurse 1 #24 Left Lateral Leg -Combined with other wound No -Current Size (cm) - Length 0.1 -Current Size (cm) - Width 0.1 -Current Size (cm) - Depth 0.1 -Total Square Cm 0.01 -Photo Taken No -Tunneling No -Undermining/Tunneling No -Exudate Amt Large -Exudate Type Serosanguineous -Wound Margin Distinct, Outline Attached -Structure Exposed None/Limited to Skin Breakdown -Texture (Marie-wound Skin Appearance) Assessed -Moisture (Marie-wound Skin Appearance) Assessed -Color (Marie-wound Skin Appearance) Assessed -Temperature (Marie-wound Skin No Abnormality Appearance) (Pt Warm) -Tenderness on Palpation (Marie-wound No Skin Appearance) -Ulcer Cleansing Soap and Water -Anesthetic Used 5% Lidocaine Gel #22 R Medial/Lateral leg -Combined with other wound No No -Current Size (cm) - Length 0.1 6 -Current Size (cm) - Width 0.1 14 -Current Size (cm) - Depth 1 0.1 -Total Square Cm 0.01 84 -Date of Last Picture (Recall this 08/16/25 08/23/25 field) -Photo Taken Yes Yes -Tunneling No No -Undermining/Tunneling No No -Circular Undermining No -Exudate Amt Large Large -Exudate Type Serosanguineous Serosanguineous -Wound Margin Distinct, Distinct, Outline Outline Attached Attached -Granulation Amt Large (67-100%) -Granulation Quality Pale,Red Keizer,Red -Slough/Fibrin Yes Yes -Necrosis Amt Large (67-100%) Small (1-33%) -Necrotic Tissue Type Adherent Slough -Structure Exposed N/A -Texture (Marie-wound Skin Appearance) Assessed Assessed -Moisture (Marie-wound Skin Appearance) Assessed Assessed -Color (Marie-wound Skin Appearance) Assessed Hemosiderin Staining -Temperature (Marie-wound Skin No Abnormality No Abnormality Appearance) (Pt Warm) (Pt Warm) -Tenderness on Palpation (Amrie-wound No Skin Appearance) -Ulcer Cleansing Soap and Water Soap and Water -Foul Odor after Cleansing No No -Anesthetic Used 5% Lidocaine 5% Lidocaine Gel Gel #18 Left medial LE cluster -Combined with other wound No No -Current Size (cm) - Length 0.1 10.5 -Current Size (cm) - Width 0.1 29.2 -Current Size (cm) - Depth 0.1 0.1 -Total Square Cm 0.01 306.60 -Date of Last Picture (Recall this 08/16/25 08/23/25 field) -Photo Taken Yes Yes -Tunneling No No -Undermining/Tunneling No No -Circular Undermining No -Exudate Amt Small Large -Exudate Type Serosanguineous Serosanguineous -Wound Margin Distinct, Distinct, Outline Outline Attached Attached -Granulation Amt Medium (34-66%) Large (67-100%) -Granulation Quality Keizer,Red Keizer,Red -Slough/Fibrin Yes Yes -Necrosis Amt Medium (34-66%) Medium (34-66%) -Necrotic Tissue Type Adherent Slough -Structure Exposed None/Limited to N/A Skin Breakdown -Texture (Marie-wound Skin Appearance) Assessed Assessed -Moisture (Marie-wound Skin Appearance) Assessed Assessed -Color (Marie-wound Skin Appearance) Assessed Hemosiderin Staining -Temperature (Marie-wound Skin No Abnormality No Abnormality Appearance) (Pt Warm) (Pt Warm) -Tenderness on Palpation (Marie-wound No No Skin Appearance) -Ulcer Cleansing Soap and Water -Foul Odor after Cleansing No No -Anesthetic Used 5% Lidocaine 5% Lidocaine Gel Gel Lower Limb Edema Present Yes Right Calf (cm) 46.0 Right Ankle (cm) 31.8 Left Calf (cm) 43.8 Left Ankle (cm) 30.3 WC - Nurse 2 - General Ulcer CM Notes Start: 08/16/25 10:26 Freq: Status: Active Protocol: Activity Type Activity Date Activity User E-sign Co-sign Detail Recorded Client Recorded Date Recorded By Document 08/16/25 10:55 GM(2) [id number] 08/16/25 11:08 GM(2) Edit Result 08/16/25 10:55 GM(2) (1) [id number] 08/16/25 11:28 GM(2) Document 08/23/25 11:09 GM(2) [id number] 08/23/25 11:31 GM(2) (1) #22 R Medial/Lateral leg - Dermabond => 3 08/16/25 08/23/25 10:55 11:09 Wound Center Nurse 2 #24 Left Lateral Leg -Time 10:59 -Correct Patient Yes -Correct Side, Site, Position Yes -Correct Procedure Yes -Procedure Performed Yes -Type of Procedure Debridement -Clinical Debridement Subcutaneous -Tissue Removed Subcutaneous -Tunneling No -Undermining/Tunneling No -Circular Undermining No -Wound/Ulcer Outcome Not Healed -Ulcer Cleansing Rinsed/ Irrigated with Saline -Foul Odor after Cleansing No -Bioengineered Tissue No -Bleeding Controlled with Pressure -Treatment Response Procedure Tolerated Well -Offloading No #22 R Medial/Lateral leg -Time 10:59 11:17 -Correct Patient Yes Yes -Correct Side, Site, Position Yes Yes -Correct Procedure Yes Yes -Procedure Performed Yes Yes -Type of Procedure Debridement Debridement -Clinical Debridement Subcutaneous Subcutaneous -Tissue Removed Subcutaneous Subcutaneous -Post Debridement (cm) - Length 10 -Post Debridement (cm) - Width 25.5 -Post Debridement (cm) - Depth 0.1 -Total Square (Post) (cm) 255.0 -Area of Debridement (cm) - Length 10 -Area of Debridement (cm) - Width 25.5 -Total Square (Area) (cm) 255.0 -Tunneling No No -Undermining/Tunneling No No -Circular Undermining No No -Wound/Ulcer Outcome Not Healed Not Healed -Ulcer Cleansing Rinsed/ Rinsed/ Irrigated with Irrigated with Saline Saline -Foul Odor after Cleansing No No -Bioengineered Tissue Yes Yes -Type of Bioengineered Tissue Theraskin Theraskin -Expiration Date 07/29/27 03/19/30 -Product Lot Number [id number] -Percent Used 100 100 -Lot number of Saline Used [id number] -Bleeding Controlled with Pressure Pressure -Treatment Response Procedure Procedure Tolerated Well Tolerated Well -Offloading No No -Debridement - Subq, 1st 20sq cm No No -Apply Skin Sub - 1st 100 sq cm - Legs 1 1 -Dermabond 3 3 -Theraskin - 103TSXL (116 SQ CM) 116 Application 1-4 (per sq cm) #18 Left medial LE cluster -Time 11:01 11:17 -Correct Patient Yes Yes -Correct Side, Site, Position Yes Yes -Correct Procedure Yes Yes -Procedure Performed Yes Yes -Type of Procedure Debridement Debridement -Clinical Debridement Subcutaneous Subcutaneous -Tissue Removed Subcutaneous Subcutaneous -Post Debridement (cm) - Length 6.0 6.8 -Post Debridement (cm) - Width 12.7 12.8 -Post Debridement (cm) - Depth 0.1 0.1 -Total Square (Post) (cm) 76.20 87.04 -Area of Debridement (cm) - Length 6.0 6.8 -Area of Debridement (cm) - Width 12.7 12.8 -Total Square (Area) (cm) 76.20 87.04 -Tunneling No No -Undermining/Tunneling No No -Circular Undermining No No -Wound/Ulcer Outcome Not Healed Not Healed -Ulcer Cleansing Rinsed/ Rinsed/ Irrigated with Irrigated with Saline Saline -Foul Odor after Cleansing No No -Bioengineered Tissue No No -Bleeding Controlled with Pressure Pressure -Treatment Response Procedure Procedure Tolerated Well Tolerated Well -Offloading No No -Debridement - Subq, 1st 20sq cm Yes Yes -Debridement, SubQ, ea addt'l 20sq cm 3 4 or part thereof Pain Scale: 0-10 Numeric Is Patient Pain Free? Yes Yes WC - Nurse 3 - General Ulcer D/C NN Start: 08/16/25 10:26 Freq: Status: Active Protocol: Activity Type Activity Date Activity User E-sign Co-sign Detail Recorded Client Recorded Date Recorded By Document 08/16/25 11:53 RB [id number] 08/16/25 11:54 RB Document 08/23/25 12:14 [id number] 08/23/25 12:17 08/16/25 08/23/25 11:53 12:14 Wound Care Center Nurse 3 #22 R Medial/Lateral leg -Primary Dressing Applied Aquacel Extra, Aquacel Extra, Optilok 6.5x10 Optilok 6.5x10 -Primary Dressing Covered/Secured with Dry Gauze & Roll Gauze, Secured with Tape -Aquacel Extra 2 2 -Optilok 6.5x10 2 2 #18 Left medial LE cluster -Primary Dressing Applied Aquacel Extra, Aquacel Extra, Optilok 5x5 1/2 Optilok 5x5 1/2 -Primary Dressing Covered/Secured with Dry Gauze & Roll Gauze, Secured with Tape -Aquacel Extra 1 2 -Optilok 5x5 1/2 1 1 BLE -Stockings Yes: pt own Yes: patients circaids own circaids Treatment Response Procedure Procedure Tolerated Well Tolerated Well Pain Scale: 0-10 Numeric Is Patient Pain Free? Yes Yes WC - Visit Discharge Discharge Condition Stable Stable Ambulatory Status Ambulatory, Ambulatory, Walker Walker Transportation [facility] Medication Reconcilliation completed & No No provided to patient/care provider Clinical Summary of Care Provided Yes Yes Additional Wound Wound debrided: right medial leg Laterality: Right Type of Debridement: Excisional debridement Anesthesia Used: 4% Lidocaine Solution, 5% Lidocaine Gel and Cetacaine Depth: Down to and including healthy tissue and in the subcutaneous layer Percentage of wound debrided: 100 Instrument Used: - (Misonix ultrasonic debridement) Tissue Removed: Yellow slough, devitalized tissue Severity: Fat Layer Exposed Amount of bleeding with debridement: Mild Bleeding Controlled with: Compression and gauze Patient tolerated procedure: Patient tolerated procedure well Operative Diagnosis: Theraksin #9 applied to right medial LE ulcer per biofuels manager guidelines. Assessment/Plan Assessment/Plan (1) Lymphedema: CODE(S): I89.0 - Lymphedema, not elsewhere classified (2) Hypertension: CODE(S): I10 - Essential (primary) hypertension QUALIFIERS: Hypertension type: primary hypertension Qualified Code(s): I10 - Essential (primary) hypertension (3) Hyperlipidemia: CODE(S): E78.5 - Hyperlipidemia, unspecified QUALIFIERS: Hyperlipidemia type: mixed hyperlipidemia Qualified Code(s): E78.2 - Mixed hyperlipidemia (4) History of DVT (deep vein thrombosis): CODE(S): Z86.718 - Personal history of other venous thrombosis and embolism (5) Venous insufficiency (chronic) (peripheral): CODE(S): I87.2 - Venous insufficiency (chronic) (peripheral) (6) Venous ulcer of left lower extremity with varicose veins: CODE(S): I83.029 - Varicose veins of left lower extremity with ulcer of unspecified site (7) Edema: CODE(S): R60.9 - Edema, unspecified QUALIFIERS: Edema type: unspecified Qualified Code(s): R60.9 - Edema, unspecified (8) 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 At home wound-care instructions: Theraskin #9 applied today as above to right medial LE ulcer using 100% of product but only covering approx. 90% of ulcer. This was secured with skin glue and then covered with wound veil and secured with steri-strips. Will continue to use Circaid compression garments and cover with super absorber and kerlix to right LE and left LE changed every other day. Left medial LE will be dressed with Fibracol and calcium alginate and ABD and kerlix for moderate to heavy drainage. This will be changed every other day. He is aware to keep this intact and dry. Due to his chronic lymphedema and being unable to don traditional compression stockings and the presence of venous ulcers on his LE b/l, it is medically necessary for him to have Circaid compression garments. He is using Circaid compression to both legs. I suspect he is not very compliant with his lymphedema pumps and not getting adequate compression with tubigrips and Circaids. Due to the delayed progress in wound healing of his venous ulcers, we discussed applying for advanced wound healing product for healing his ulcer. Due to the size of his ulcer, Theraskin application approval was requested from his insurance as it is medically necessary for salvaging his limb and healing his ulcer. He has previously had treatment with Theraskin to his left lower leg with improvement in October 2023. Insurance only allowed 3 applications at that time. It is medically necessary for application of Theraskin to his right lower extremity ulcer to salvage his limb and heal his ulcer and this has been approved for 10 applications. He is using Circaid compression wraps. Off-loading: The patient was instructed to avoid pressure and friction on the affected areas. Reposition every 2 hours at minimum. Avoid prolonged standing and/or dangling of legs. When seated, feet should be elevated at chest level. Frequent ambulation is encouraged. Encouraged lymphedema pump use. Diet: Patient encouraged to increase protein intake while taking caution to avoid high carbohydrate and/or sugar intake. Labs/cultures/imaging: Wound culture showed Pseudomonas, Escherichia hermannii, Raoultella planticola, Vancomycin Resist. E. faecalis, Alcaligenes faecalis ssp faeca, Staphylococcus cohnii urealyti and anaerobic bacteria on 06/15/24 and he completed on Levofloxacin and Augmentin. Wound culture taken today on right lateral ulcer which showed Raoultella planticola, Staph hemolyticus, staph epidermidis and morganella morganii but no anaeroobic bacteria, Levofloxacin and doxycyline were prescribed based on culture results. Labs ordered 10/19/2024. Vitamin D was low A1C 5.4% Wound culture from 12/07/24 was positive for Providencia stuartii, Vancomycin resistant E. Faecalis, Corynebacterium striatum and completed Augmentin orally. Follow-up: Return in 1 week for wound care follow up and have dressing changed by home health Mondays. Return sooner or report to the emergency room should symptoms worsen, or new symptoms arise. Note: [employer] speech recognition cotton weigher operator software was used to create portions of this document. Sound-alike and misspelled words, as well as other cotton weigher operator errors may be contained in the documentation.
--- NOTE | 2025-08-26 08:57 | WC ---
PHOTO-LEFT LEG 08/23/25
--- NOTE | 2025-08-26 08:59 | WC ---
PHOTO-RIGHT LEG 08/23/25
[2025-08-30 11:08] VITALS: BP 156/84; PULSE 73; RESP 18; TEMP 35.8
--- NOTE | 2025-08-30 13:40 | PCM.WC.PN ---
History of Present Illness Date of Service: 08/30/25 Chief Complaint: venous ulcers of left lower extremity and right lower extremity History of Wound: Mauricio is a 70 yo gentleman who is here today for evaluation of ulcers to to his bilateral lower legs. He has been treated multiple times in the past at the wound healing center for similar ulcers. The left LE ulcer started after he developed increased swelling and blisters of left leg in October and the right leg started sometime at the end of October. He was seen at PCP's office a culture was taken and it was resistant to several antibiotics. He was treated initially with Levaquin but had myalgias and then was treated with doxycycline which he finished 2 days ago. He denies improvement and is having swelling to his left calf and thigh. He has been having swelling to both lower extremities for many years and it has worsened over the last few months. He has not been compliant with compression. He has had increased pain especially in the left leg. He has clear yellow drainage and redness without odor or warmth. He is anti-coagulated on coumadin. He has been washing with Dial soap and witch ifrah. He had been using Collagen at times and using Calcium Alginate and covering with ABD pads during October. He was treated with 3M compression and Aquacel Ag. He was referred to the wound center for ongoing treatment. His ulcers have moderate to heavy drainage. He was in the hospital from 11/30/22 until 12/09/22 for treatment of cellulitis and edema. He underwent treatment with Vancomycin and IV lasix and compression. Discharged on 12/09/22. He returned to his assisted living apartment on Tuesday12/21/22. Wound culture from 12/07/24 was positive for Providencia stuartii, Vancomycin resistant E. Faecalis, Corynebacterium striatum and completed Augmentin orally. His edema is better this week and he is tolerating Circaid compression. 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 He continues to use his lymphedema pumps but continues to have pain with use of these pumps. 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 Subjective Subjective Mauricio is a 70-year-old male with longstanding history of chronic venous ulceration to the left lower extremity and a right lower extremity venous ulcer that is nearly circumferential. There has been small improvement since his last visit. He has tolerated treatment with Theraskin #9 to his right lower leg. His edema is stable today. He is more compliant with elevation but still is not compliant with compression pump frequency due to pain with use of pumps. He has been applying KATE wraps over his Circaids for extra compression. Objective Data Objective Data Vital Signs: Vital Signs Temp Pulse Resp BP O2 Del Method 96.4 F L 73 18 156/84 H Room Air 08/30/25 11:08 08/30/25 11:08 08/30/25 11:08 08/30/25 11:08 08/30/25 11:08 Oxygen Delivery Method Room Air Physical Exam Const alert, oriented x3 and no apparent distress General Appearance: cooperative and comfortable HEENT normocephalic and head/scalp atraumatic Lymph Lymphatic: lymphedema moderate Resp normal respiratory effort Effort and Inspection: able to speak in complete sentences Cardio regular rate and regular rhythm Extremity Extremity Narrative: His ulcers are painful and the right lower leg remains more swollen than his left but there is good granulation tissue throughout and mild amount of slough that is nearly completely removed post - debridement, edges of ulcers are beveled without rolled borders bilaterally, Theraskin was intact to right lower leg and in place prior to debridement, left lower leg ulcer remains with good granulation tissue through ulcer with mild slough that is removed post-debridement and is slightly smaller in size General Extremity: edema bilateral lower extremity Details: severe Skin General Skin Exam: venous stasis and dermatitis Wounds: wounds noted Psych mental status grossly normal, thought process normal, cooperative and affect normal Debridement Note Debridement Note Wound debrided: left medial LE ulcer Laterality: Left Type of Debridement: Excisional debridement Anesthesia Used: 5% Lidocaine Gel and Cetacaine Depth: Down to and including healthy tissue and in the subcutaneous layer Percentage of wound debrided: 100 Instrument Used: - (Misonix ultrasonic debridement) Tissue Removed: Yellow slough, devitalized tissue Severity: Fat Layer Exposed Amount of bleeding with debridement: Mild Bleeding Controlled with: Compression and gauze Patient tolerated procedure: Patient tolerated procedure well Post-Debridement Measurements and Additional Note: Post-Debridement Measurements/Treatment WC - Nurse 1 - General Ulcer Assessment Start: 08/16/25 10:26 Freq: Status: Active Protocol: WC.LOWEXT Activity Type Activity Date Activity User E-sign Co-sign Detail Recorded Client Recorded Date Recorded By Document 08/16/25 10:26 TS [id number] 08/16/25 10:42 TS Document 08/16/25 10:42 TS [id number] 08/16/25 10:46 TS Document 08/23/25 10:56 GM [id number] 08/23/25 11:05 GM Document 08/30/25 11:08 GM [id number] 08/30/25 11:19 08/16/25 08/16/25 08/23/25 10:26 10:42 10:56 - Today's Visit Information Type of service Follow-up Visit Follow-up Visit Follow-up Visit (Physician/PATIENT SAFETY SITTER (Physician/PATIENT SAFETY SITTER (Physician/PATIENT SAFETY SITTER ) ) ) Arrival Mode Walker Walker Walker Transfer Assistance Manual Patient Identification Verified (Name & Yes Yes Yes ) Patient Requires Transmission-Based No No Precautions Safety Precautions Fall Prevention Fall Prevention Vital Signs Temperature (97.8 F-99.1 F) 96.7 F L 96.5 F L 99.5 F H Temperature Source Temporal Temporal Temporal Pulse Rate (60-100) 72 72 75 Pulse Location Monitor Monitor Monitor Respiratory Rate (12-18) 17 16 18 Respiratory rate source Observation Observation Observation Oxygen Delivery Method Room Air Room Air Room Air Blood Pressure (90/60-120/80) 136/77 H 136/77 H 167/97 H Blood Pressure Mean (mm Hg) 96 96 120 Source Monitor Monitor Monitor Position Semi-Fowlers Semi-Fowlers Sitting Blood Pressure Location Left Arm Left Arm Right Forearm History Since Last Visit- (Skip if this is Patient's initial visit) Have you changed medications since your No No Yes last visit? Any new allergies or adverse reactions No No No Had a fall/change in ADL's that may No No No increase risk of falls Signs or symptoms of abuse and/or No No No neglect since last visit Have you been in the hospital since your No No No last visit? Has dressing in place as prescribed Yes Yes Yes Has compression in place as prescribed Yes Yes Yes Has offloadiing in place as prescribed N/A N/A N/A Experienced any changes in pain level or No No No management Left Footwear Regular Shoe Regular Shoe Regular Shoe Right Footwear Regular Shoe Regular Shoe Regular Shoe Pain Scale: 0-10 Numeric Is Patient Pain Free? Yes Yes No left lower leg -Description Crushing -Intensity 6 -Duration (hours) Chronic -Pain Behavior Withdrawal from Touch -Pain Aggravating Factors Exercise/ Activity -Alleviating Factors/Interventions Medication -Effectiveness of Alleviating Factor/ Moderately Intervention effective 08/30/25 11:08 - Today's Visit Information Type of service Follow-up Visit (Physician/PATIENT SAFETY SITTER ) Arrival Mode Walker Transfer Assistance Manual Patient Identification Verified (Name & Yes ) Patient Requires Transmission-Based No Precautions Safety Precautions Vital Signs Temperature (97.8 F-99.1 F) 96.4 F L Temperature Source Temporal Pulse Rate (60-100) 73 Pulse Location Monitor Respiratory Rate (12-18) 18 Respiratory rate source Observation Oxygen Delivery Method Room Air Blood Pressure (90/60-120/80) 156/84 H Blood Pressure Mean (mm Hg) 108 Source Doppler/Manual Position Blood Pressure Location Right Arm History Since Last Visit- (Skip if this is Patient's initial visit) Have you changed medications since your No last visit? Any new allergies or adverse reactions No Had a fall/change in ADL's that may No increase risk of falls Signs or symptoms of abuse and/or No neglect since last visit Have you been in the hospital since your No last visit? Has dressing in place as prescribed No Has compression in place as prescribed Yes Has offloadiing in place as prescribed Yes Experienced any changes in pain level or management Left Footwear Regular Shoe Right Footwear Regular Shoe Pain Scale: 0-10 Numeric Is Patient Pain Free? No left lower leg -Description Sharp,Cramping -Intensity 7 -Duration (hours) Chronic -Pain Behavior Guarding, Withdrawal from Touch -Pain Aggravating Factors Changing Position, Debridement -Alleviating Factors/Interventions Medication -Effectiveness of Alleviating Factor/ Moderately Intervention effective - Nurse 1 - General Ulcer Measurement Start: 08/16/25 10:26 Freq: Status: Active Protocol: Activity Type Activity Date Activity User E-sign Co-sign Detail Recorded Client Recorded Date Recorded By Document 08/16/25 10:42 TS [id number] 08/16/25 10:46 TS Document 08/23/25 10:56 [id number] 08/23/25 11:05 Document 08/30/25 11:08 [id number] 08/30/25 11:19 GM 08/16/25 08/23/25 08/30/25 10:42 10:56 11:08 Wound Center Nurse 1 #24 Left Lateral Leg -Combined with other wound No -Current Size (cm) - Length 0.1 -Current Size (cm) - Width 0.1 -Current Size (cm) - Depth 0.1 -Total Square Cm 0.01 -Photo Taken No -Tunneling No -Undermining/Tunneling No -Exudate Amt Large -Exudate Type Serosanguineous -Wound Margin Distinct, Outline Attached -Structure Exposed None/Limited to Skin Breakdown -Texture (Marie-wound Skin Appearance) Assessed -Moisture (Marie-wound Skin Appearance) Assessed -Color (Marie-wound Skin Appearance) Assessed -Temperature (Marie-wound Skin No Abnormality Appearance) (Pt Warm) -Tenderness on Palpation (Marie-wound No Skin Appearance) -Ulcer Cleansing Soap and Water -Anesthetic Used 5% Lidocaine Gel #22 R Medial/Lateral leg -Combined with other wound No No No -Current Size (cm) - Length 0.1 6 10.5 -Current Size (cm) - Width 0.1 14 29 -Current Size (cm) - Depth 1 0.1 0.1 -Total Square Cm 0.01 84 304.5 -Date of Last Picture (Recall this 08/16/25 08/23/25 08/30/25 field) -Photo Taken Yes Yes Yes -Tunneling No No No -Undermining/Tunneling No No No -Circular Undermining No No -Exudate Amt Large Large Large -Exudate Type Serosanguineous Serosanguineous Serosanguineous -Wound Margin Distinct, Distinct, Distinct, Outline Outline Outline Attached Attached Attached -Granulation Amt Large (67-100%) Small (1-33%) -Granulation Quality Pale,Red [place],Red [place],Red -Slough/Fibrin Yes Yes Yes -Necrosis Amt Large (67-100%) Small (1-33%) Large (67-100%) -Necrotic Tissue Type Adherent Slough Adherent Slough -Structure Exposed N/A N/A -Texture (Marie-wound Skin Appearance) Assessed Assessed Assessed, Localized Edema -Moisture (Marie-wound Skin Appearance) Assessed Assessed Assessed, Weeping -Color (Marie-wound Skin Appearance) Assessed Hemosiderin Assessed, Staining Hemosiderin Staining -Temperature (Marie-wound Skin No Abnormality No Abnormality No Abnormality Appearance) (Pt Warm) (Pt Warm) (Pt Warm) -Tenderness on Palpation (Marie-wound No Yes Skin Appearance) -Ulcer Cleansing Soap and Water Soap and Water Soap and Water -Foul Odor after Cleansing No No No -Anesthetic Used 5% Lidocaine 5% Lidocaine 5% Lidocaine Gel Gel Gel #18 Left medial LE cluster -Combined with other wound No No No -Current Size (cm) - Length 0.1 10.5 6 -Current Size (cm) - Width 0.1 29.2 13 -Current Size (cm) - Depth 0.1 0.1 0.1 -Total Square Cm 0.01 306.60 78 -Date of Last Picture (Recall this 08/16/25 08/23/25 08/30/25 field) -Photo Taken Yes Yes Yes -Tunneling No No No -Undermining/Tunneling No No No -Circular Undermining No No -Exudate Amt Small Large Large -Exudate Type Serosanguineous Serosanguineous Serosanguineous -Wound Margin Distinct, Distinct, Distinct, Outline Outline Outline Attached Attached Attached -Granulation Amt Medium (34-66%) Large (67-100%) Small (1-33%) -Granulation Quality [place],Red [place],Red [place],Red -Slough/Fibrin Yes Yes Yes -Necrosis Amt Medium (34-66%) Medium (34-66%) -Necrotic Tissue Type Adherent Slough Adherent Slough -Structure Exposed None/Limited to N/A N/A Skin Breakdown -Texture (Marie-wound Skin Appearance) Assessed Assessed Assessed, Localized Edema -Moisture (Marie-wound Skin Appearance) Assessed Assessed Assessed,Dry/ Scaly -Color (Marie-wound Skin Appearance) Assessed Hemosiderin Assessed, Staining Hemosiderin Staining -Temperature (Marie-wound Skin No Abnormality No Abnormality No Abnormality Appearance) (Pt Warm) (Pt Warm) (Pt Warm) -Tenderness on Palpation (Marie-wound No No Yes Skin Appearance) -Ulcer Cleansing Soap and Water Soap and Water -Foul Odor after Cleansing No No No -Anesthetic Used 5% Lidocaine 5% Lidocaine 5% Lidocaine Gel Gel Gel Lower Limb Edema Present Yes Right Calf (cm) 46.0 44 Right Ankle (cm) 31.8 32 Left Calf (cm) 43.8 41 Left Ankle (cm) 30.3 31 WC - Nurse 2 - General Ulcer CM Notes Start: 08/16/25 10:26 Freq: Status: Active Protocol: Activity Type Activity Date Activity User E-sign Co-sign Detail Recorded Client Recorded Date Recorded By Document 08/16/25 10:55 GM(2) [id number] 08/16/25 11:08 GM(2) Edit Result 08/16/25 10:55 GM(2) (1) [id number] 08/16/25 11:28 GM(2) Document 08/23/25 11:09 GM(2) [id number] 08/23/25 11:31 GM(2) Edit Result 08/23/25 11:09 GM(2) (2) [id number] 08/29/25 07:33 GM(2) Document 08/30/25 11:49 GM(2) [id number] 08/30/25 12:15 GM(2) Edit Result 08/30/25 11:49 GM(2) (3) [id number] 08/30/25 12:35 GM(2) (1) #22 R Medial/Lateral leg - Dermabond => 3 (2) #22 R Medial/Lateral leg - Theraskin - 103TSXL (116 SQ CM) => 116 Application 1-4 (per sq cm) (3) #22 R Medial/Lateral leg - Dermabond => 4 08/16/25 08/23/25 08/30/25 10:55 11:09 11:49 Wound Center Nurse 2 #24 Left Lateral Leg -Time 10:59 -Correct Patient Yes -Correct Side, Site, Position Yes -Correct Procedure Yes -Procedure Performed Yes -Type of Procedure Debridement -Clinical Debridement Subcutaneous -Tissue Removed Subcutaneous -Tunneling No -Undermining/Tunneling No -Circular Undermining No -Wound/Ulcer Outcome Not Healed -Ulcer Cleansing Rinsed/ Irrigated with Saline -Foul Odor after Cleansing No -Bioengineered Tissue No -Bleeding Controlled with Pressure -Treatment Response Procedure Tolerated Well -Offloading No #22 R Medial/Lateral leg -Time 10:59 11:17 11:51 -Correct Patient Yes Yes Yes -Correct Side, Site, Position Yes Yes Yes -Correct Procedure Yes Yes Yes -Procedure Performed Yes Yes Yes -Type of Procedure Debridement Debridement Debridement -Clinical Debridement Subcutaneous Subcutaneous Subcutaneous -Tissue Removed Subcutaneous Subcutaneous Subcutaneous -Post Debridement (cm) - Length 10 10 -Post Debridement (cm) - Width 25.5 24.5 -Post Debridement (cm) - Depth 0.1 0.1 -Total Square (Post) (cm) 255.0 245.0 -Area of Debridement (cm) - Length 10 10 -Area of Debridement (cm) - Width 25.5 24.5 -Total Square (Area) (cm) 255.0 245.0 -Tunneling No No No -Undermining/Tunneling No No No -Circular Undermining No No No -Wound/Ulcer Outcome Not Healed Not Healed Not Healed -Ulcer Cleansing Rinsed/ Rinsed/ Rinsed/ Irrigated with Irrigated with Irrigated with Saline Saline Saline -Foul Odor after Cleansing No No No -Bioengineered Tissue Yes Yes Yes -Type of Bioengineered Tissue Theraskin Theraskin Theraskin -Expiration Date 07/29/27 03/19/30 03/26/30 -Product Lot Number [id number] -Percent Used 100 100 100 -Lot number of Saline Used [id number] -Bleeding Controlled with Pressure Pressure Pressure -Treatment Response Procedure Procedure Procedure Tolerated Well Tolerated Well Tolerated Well -Offloading No No No -Debridement - Subq, 1st 20sq cm No No No -Apply Skin Sub - 1st 100 sq cm - Legs 1 1 1 -Dermabond 3 3 4 -Theraskin - 103TSXL (116 SQ CM) 116 116 116 Application 1-4 (per sq cm) #18 Left medial LE cluster -Time 11:01 11:17 11:52 -Correct Patient Yes Yes Yes -Correct Side, Site, Position Yes Yes Yes -Correct Procedure Yes Yes Yes -Procedure Performed Yes Yes Yes -Type of Procedure Debridement Debridement Debridement -Clinical Debridement Subcutaneous Subcutaneous Subcutaneous -Tissue Removed Subcutaneous Subcutaneous Subcutaneous -Post Debridement (cm) - Length 6.0 6.8 6.0 -Post Debridement (cm) - Width 12.7 12.8 13.0 -Post Debridement (cm) - Depth 0.1 0.1 0.1 -Total Square (Post) (cm) 76.20 87.04 78.00 -Area of Debridement (cm) - Length 6.0 6.8 6.0 -Area of Debridement (cm) - Width 12.7 12.8 13.0 -Total Square (Area) (cm) 76.20 87.04 78.00 -Tunneling No No No -Undermining/Tunneling No No No -Circular Undermining No No No -Wound/Ulcer Outcome Not Healed Not Healed Not Healed -Ulcer Cleansing Rinsed/ Rinsed/ Rinsed/ Irrigated with Irrigated with Irrigated with Saline Saline Saline -Foul Odor after Cleansing No No No -Bioengineered Tissue No No No -Bleeding Controlled with Pressure Pressure Pressure -Treatment Response Procedure Procedure Procedure Tolerated Well Tolerated Well Tolerated Well -Offloading No No No -Debridement - Subq, 1st 20sq cm Yes Yes Yes -Debridement, SubQ, ea addt'l 20sq cm 3 4 3 or part thereof Pain Scale: 0-10 Numeric Is Patient Pain Free? Yes Yes Yes WC - Nurse 3 - General Ulcer D/C NN Start: 08/16/25 10:26 Freq: Status: Active Protocol: Activity Type Activity Date Activity User E-sign Co-sign Detail Recorded Client Recorded Date Recorded By Document 08/16/25 11:53 RB [id number] 08/16/25 11:54 RB Document 08/23/25 12:14 [id number] 08/23/25 12:17 Document 08/30/25 13:03 [id number] 08/30/25 13:06 08/16/25 08/23/25 08/30/25 11:53 12:14 13:03 Wound Care Center Nurse 3 #22 R Medial/Lateral leg -Ulcer Cleansing Rinsed/ Irrigated with Saline -Negative Pressure Wound Therapy N/A -Primary Dressing Applied Aquacel Extra, Aquacel Extra, Aquacel Extra, Optilok 6.5x10 Optilok 6.5x10 Optilok 6.5x10 -Primary Dressing Covered/Secured with Dry Gauze & Dry Gauze & Roll Gauze, Roll Gauze, Secured with Secured with Tape Tape -Aquacel Extra 2 2 2 -Optilok 6.5x10 2 2 2 #18 Left medial LE cluster -Ulcer Cleansing Rinsed/ Irrigated with Saline -Foul Odor after Cleansing No -Negative Pressure Wound Therapy N/A -Primary Dressing Applied Aquacel Extra, Aquacel Extra, Aquacel Extra, Optilok 5x5 1/2 Optilok 5x5 1/2 Optilok 5x5 1/2 -Other Dressing ABD -Primary Dressing Covered/Secured with Dry Gauze & Dry Gauze & Roll Gauze, Roll Gauze, Secured with Secured with Tape Tape -Aquacel Extra 1 2 2 -Optilok 5x5 1/2 1 1 1 BLE -Stockings Yes: pt own Yes: patients Yes: pts own circaids own circaids circaids Treatment Response Procedure Procedure Procedure Tolerated Well Tolerated Well Tolerated Well Pain Scale: 0-10 Numeric Is Patient Pain Free? Yes Yes Yes WC - Visit Discharge Discharge Condition Stable Stable Stable Ambulatory Status Ambulatory, Ambulatory, Walker Walker Walker Transportation [facility] Medication Reconcilliation completed & No No No provided to patient/care provider Clinical Summary of Care Provided Yes Yes Yes Additional Wound Wound debrided: right medial leg Laterality: Right Type of Debridement: Excisional debridement Anesthesia Used: 4% Lidocaine Solution, 5% Lidocaine Gel and Cetacaine Depth: Down to and including healthy tissue and in the subcutaneous layer Percentage of wound debrided: 100 Instrument Used: - (Misonix ultrasonic debridement) Tissue Removed: Yellow slough, devitalized tissue Severity: Fat Layer Exposed Amount of bleeding with debridement: Mild Bleeding Controlled with: Compression and gauze Patient tolerated procedure: Patient tolerated procedure well Operative Diagnosis: Theraksin #10 applied to right medial LE ulcer per gravity manager guidelines. Assessment/Plan Assessment/Plan (1) Lymphedema: CODE(S): I89.0 - Lymphedema, not elsewhere classified (2) Hypertension: CODE(S): I10 - Essential (primary) hypertension QUALIFIERS: Hypertension type: primary hypertension Qualified Code(s): I10 - Essential (primary) hypertension (3) Hyperlipidemia: CODE(S): E78.5 - Hyperlipidemia, unspecified QUALIFIERS: Hyperlipidemia type: mixed hyperlipidemia Qualified Code(s): E78.2 - Mixed hyperlipidemia (4) History of DVT (deep vein thrombosis): CODE(S): Z86.718 - Personal history of other venous thrombosis and embolism (5) Venous insufficiency (chronic) (peripheral): CODE(S): I87.2 - Venous insufficiency (chronic) (peripheral) (6) Venous ulcer of left lower extremity with varicose veins: CODE(S): I83.029 - Varicose veins of left lower extremity with ulcer of unspecified site (7) Edema: CODE(S): R60.9 - Edema, unspecified QUALIFIERS: Edema type: unspecified Qualified Code(s): R60.9 - Edema, unspecified (8) 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 At home wound-care instructions: Theraskin #10 applied today as above to right medial LE ulcer using 100% of product covering 100% of ulcer. This was secured with skin glue and then covered with wound veil and secured with steri-strips. Will continue to use Circaid compression garments and cover with super absorber and kerlix to right LE and left LE changed every other day. Left medial LE will be dressed with Fibracol and calcium alginate and ABD and kerlix for moderate to heavy drainage. This will be changed daily. He is aware to keep this intact and dry. Due to his chronic lymphedema and being unable to don traditional compression stockings and the presence of venous ulcers on his LE b/l, it is medically necessary for him to have Circaid compression garments. He is using Circaid compression to both legs. I suspect he is not very compliant with his lymphedema pumps and not getting adequate compression with tubigrips and Circaids. Due to the delayed progress in wound healing of his venous ulcers, we discussed applying for advanced wound healing product for healing his ulcer. Due to the size of his ulcer, Theraskin application approval was requested from his insurance as it is medically necessary for salvaging his limb and healing his ulcer. He has previously had treatment with Theraskin to his left lower leg with improvement in October 2023. Insurance only allowed 3 applications at that time. It is medically necessary for application of Theraskin to his right lower extremity ulcer to salvage his limb and heal his ulcer and this has been approved for 10 applications which have been completed as of today. He would benefit from application of Theraskin in decreasing the size and healing his left lower leg ulcer as well to salvage his limb and this will be applied for through his insurance. He is using Circaid compression wraps. Off-loading: The patient was instructed to avoid pressure and friction on the affected areas. Reposition every 2 hours at minimum. Avoid prolonged standing and/or dangling of legs. When seated, feet should be elevated at chest level. Frequent ambulation is encouraged. Encouraged lymphedema pump use. Diet: Patient encouraged to increase protein intake while taking caution to avoid high carbohydrate and/or sugar intake. Labs/cultures/imaging: Wound culture showed Pseudomonas, Escherichia hermannii, Raoultella planticola, Vancomycin Resist. E. faecalis, Alcaligenes faecalis ssp faeca, Staphylococcus cohnii urealyti and anaerobic bacteria on 06/15/24 and he completed on Levofloxacin and Augmentin. Wound culture taken today on right lateral ulcer which showed Raoultella planticola, Staph hemolyticus, staph epidermidis and morganella morganii but no anaeroobic bacteria, Levofloxacin and doxycyline were prescribed based on culture results. Labs ordered 10/19/2024. Vitamin D was low A1C 5.4% Wound culture from 12/07/24 was positive for Providencia stuartii, Vancomycin resistant E. Faecalis, Corynebacterium striatum and completed Augmentin orally. Follow-up: Return in 2 weeks for wound care follow up and change dressings daily. Return sooner or report to the emergency room should symptoms worsen, or new symptoms arise. Note: [employer] speech recognition pattern hand software was used to create portions of this document. Sound-alike and misspelled words, as well as other pattern hand errors may be contained in the documentation.
--- NOTE | 2025-09-02 09:20 | NURSING ---
PHOTO-RLE 08/30/25
--- NOTE | 2025-09-02 09:21 | WC ---
PHOTO-RLE 08/30/25
--- NOTE | 2025-09-02 09:22 | WC ---
PHOTO-RLE 08/30/25
== END 2025-09-08 23:59 | disposition home or self-care (01) ==
LOC: WC 11:15
PROVIDERS: PCP Family Medicine; Referring Provider Family Medicine; Visit Provider Family Medicine
DX: I83.018 Varicose veins of right lower extremity with ulcer other part of lower leg (principal); L97.812 Non-pressure chronic ulcer of other part of right lower leg with fat layer exposed; I83.028 Varicose veins of left lower extremity with ulcer other part of lower leg; L97.822 Non-pressure chronic ulcer of other part of left lower leg with fat layer exposed; I10 Essential (primary) hypertension; R60.9 Edema, unspecified; Z86.718 Personal history of other venous thrombosis and embolism; E78.2 Mixed hyperlipidemia; I87.2 Venous insufficiency (chronic) (peripheral); I89.0 Lymphedema, not elsewhere classified
CPT/HCPCS: 11042; 11045; 15273; Q4121

== ENCOUNTER 2025-09-27 11:00 | Outpatient (RCR) | payer MEDICARE, OTHER, SELFPAY ==
--- NOTE | 2025-09-10 07:57 | WC ---
Patient left a voicemail regarding the odor of the theraskin sites on his leg wound. Patient states feels like rotten cabbage and the dressing changes have been difficult and trying to get dressing supplies. Called and left a voicemail regarding recommendations. Mentioned that he needs to continue changing outer dressings and washing his edilia-ulcers with soap and water. The theraskin has been left on for 2 weeks, which could be causing some malodorous. Advised patient on voicemail that if he develops fevers, notices redness warmth around the ulcers to call the nurses station to let us know.
[2025-09-13 11:02] VITALS: BP 111/45; PULSE 80; RESP 18; TEMP 35.7
--- NOTE | 2025-09-13 12:39 | WC ---
PHOTO-LLE 09/13/25
--- NOTE | 2025-09-13 12:41 | WC ---
PHOTO-RLE 09/13/25
--- NOTE | 2025-09-13 12:42 | WC ---
PHOTO-RLE 09/13/25
--- NOTE | 2025-09-13 14:46 | PCM.WC.PN ---
History of Present Illness Date of Service: 09/13/25 Chief Complaint: venous ulcers of left lower extremity and right lower extremity History of Wound: Mauricio is a 70 yo gentleman who is here today for evaluation of ulcers to to his bilateral lower legs. He has been treated multiple times in the past at the wound healing center for similar ulcers. The left LE ulcer started after he developed increased swelling and blisters of left leg in October and the right leg started sometime at the end of October. He was seen at PCP's office a culture was taken and it was resistant to several antibiotics. He was treated initially with Levaquin but had myalgias and then was treated with doxycycline which he finished 2 days ago. He denies improvement and is having swelling to his left calf and thigh. He has been having swelling to both lower extremities for many years and it has worsened over the last few months. He has not been compliant with compression. He has had increased pain especially in the left leg. He has clear yellow drainage and redness without odor or warmth. He is anti-coagulated on coumadin. He has been washing with Dial soap and witch ifrah. He had been using Collagen at times and using Calcium Alginate and covering with ABD pads during October. He was treated with 3M compression and Aquacel Ag. He was referred to the wound center for ongoing treatment. His ulcers have moderate to heavy drainage. He was in the hospital from 11/30/22 until 12/09/22 for treatment of cellulitis and edema. He underwent treatment with Vancomycin and IV lasix and compression. Discharged on 12/09/22. He returned to his assisted living apartment on Tuesday12/21/22. Wound culture from 12/07/24 was positive for Providencia stuartii, Vancomycin resistant E. Faecalis, Corynebacterium striatum and completed Augmentin orally. His edema is better this week and he is tolerating Circaid compression. 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 He continues to use his lymphedema pumps but continues to have pain with use of these pumps. 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 Subjective Subjective Mauricio is a 70-year-old male with longstanding history of chronic venous ulceration to the left lower extremity and a right lower extremity venous ulcer that is nearly circumferential. There has been small improvement since his last visit. He has tolerated treatment with Theraskin #10 to his right lower leg. His edema is stable today. He is more compliant with elevation but still is not compliant with compression pump frequency due to pain with use of pumps. He has been applying KATE wraps over his Circaids for extra compression. Objective Data Objective Data Vital Signs: Vital Signs Temp Pulse Resp BP 96.3 F L 80 18 111/45 L 09/13/25 11:02 09/13/25 11:02 09/13/25 11:02 09/13/25 11:02 Physical Exam Const alert, oriented x3 and no apparent distress General Appearance: cooperative and comfortable HEENT normocephalic and head/scalp atraumatic Lymph Lymphatic: lymphedema moderate Resp normal respiratory effort Effort and Inspection: able to speak in complete sentences Cardio regular rate and regular rhythm Extremity Extremity Narrative: His ulcers are painful and the right lower leg remains more swollen than his left but there is good granulation tissue throughout and mild amount of slough that is nearly completely removed post - debridement, edges of ulcers are beveled without rolled borders bilaterally, left lower leg ulcer remains with good granulation tissue through ulcer with mild slough that is removed post-debridement and is slightly smaller in size General Extremity: edema bilateral lower extremity Details: severe Skin General Skin Exam: venous stasis and dermatitis Wounds: wounds noted Psych mental status grossly normal, thought process normal, cooperative and affect normal Debridement Note Debridement Note Wound debrided: left medial LE ulcer Laterality: Left Type of Debridement: Excisional debridement Anesthesia Used: 5% Lidocaine Gel and Cetacaine Depth: Down to and including healthy tissue and in the subcutaneous layer Percentage of wound debrided: 100 Instrument Used: - (Misonix ultrasonic debridement) Tissue Removed: Yellow slough, devitalized tissue Severity: Fat Layer Exposed Amount of bleeding with debridement: Mild Bleeding Controlled with: Compression and gauze Patient tolerated procedure: Patient tolerated procedure well Post-Debridement Measurements and Additional Note: Post-Debridement Measurements/Treatment DEBBIE - Nurse 1 - General Ulcer Assessment Start: 09/13/25 11:02 Freq: Status: Active Protocol: ONDINA Activity Type Activity Date Activity User E-sign Co-sign Detail Recorded Client Recorded Date Recorded By Document 09/13/25 11:02 ARPIT [id number] 09/13/25 11:10 09/13/25 11:02 - Today's Visit Information Type of service Follow-up Visit (Physician/RADIOCHEMICAL TECHNICIAN ) Arrival Mode Ambulatory, Walker Transfer Assistance None Patient Identification Verified (Name & Yes ) Patient Requires Transmission-Based No Precautions Vital Signs Temperature (97.8 F-99.1 F) 96.3 F L Temperature Source Temporal Pulse Rate (60-100) 80 Pulse Location Monitor Respiratory Rate (12-18) 18 Respiratory rate source Observation Blood Pressure (90/60-120/80) 111/45 L Blood Pressure Mean (mm Hg) 67 Source Monitor Position Semi-Fowlers Blood Pressure Location Left Arm History Since Last Visit- (Skip if this is Patient's initial visit) Have you changed medications since your No last visit? Any new allergies or adverse reactions No Had a fall/change in ADL's that may No increase risk of falls Signs or symptoms of abuse and/or No neglect since last visit Have you been in the hospital since your No last visit? Has dressing in place as prescribed Yes Has compression in place as prescribed Yes Has offloadiing in place as prescribed N/A Experienced any changes in pain level or No management Pain Scale: 0-10 Numeric Is Patient Pain Free? Yes - Nurse 1 - General Ulcer Measurement Start: 09/13/25 11:02 Freq: Status: Active Protocol: Activity Type Activity Date Activity User E-sign Co-sign Detail Recorded Client Recorded Date Recorded By Document 09/13/25 11:02 ARPIT [id number] 09/13/25 11:10 09/13/25 11:02 Wound Center Nurse 1 #22 R Medial/Lateral leg -Combined with other wound No -Current Size (cm) - Length 10.5 -Current Size (cm) - Width 31 -Current Size (cm) - Depth 0.1 -Total Square Cm 325.5 -Date of Last Picture (Recall this 09/13/25 field) -Photo Taken Yes -Tunneling No -Undermining/Tunneling No -Circular Undermining No -Exudate Amt Large -Exudate Type Serosanguineous -Wound Margin Distinct, Outline Attached -Granulation Amt Small (1-33%) -Granulation Quality Ada -Slough/Fibrin Yes -Necrosis Amt Medium (34-66%) -Necrotic Tissue Type Eschar -Structure Exposed N/A -Texture (Marie-wound Skin Appearance) Assessed -Moisture (Marie-wound Skin Appearance) Assessed -Color (Marie-wound Skin Appearance) Assessed, Hemosiderin Staining -Temperature (Marie-wound Skin No Abnormality Appearance) (Pt Warm) -Tenderness on Palpation (Marie-wound No Skin Appearance) -Ulcer Cleansing Wound Cleanser -Foul Odor after Cleansing No -Anesthetic Used 5% Lidocaine Gel #18 Left medial LE cluster -Combined with other wound No -Current Size (cm) - Length 6 -Current Size (cm) - Width 13 -Current Size (cm) - Depth 0.1 -Total Square Cm 78 -Date of Last Picture (Recall this 09/13/25 field) -Photo Taken Yes -Tunneling No -Undermining/Tunneling No -Circular Undermining No -Exudate Amt Large -Exudate Type Serosanguineous -Wound Margin Distinct, Outline Attached -Granulation Amt Small (1-33%) -Granulation Quality Red -Slough/Fibrin Yes -Necrosis Amt Large (67-100%) -Necrotic Tissue Type Eschar -Structure Exposed N/A -Texture (Marie-wound Skin Appearance) Assessed -Moisture (Marie-wound Skin Appearance) Assessed -Color (Marie-wound Skin Appearance) Hemosiderin Staining -Temperature (Marie-wound Skin No Abnormality Appearance) (Pt Warm) -Tenderness on Palpation (Marie-wound No Skin Appearance) -Ulcer Cleansing Wound Cleanser -Foul Odor after Cleansing No -Anesthetic Used 5% Lidocaine Gel Lower Limb Edema Present Yes Right Calf (cm) 48 Right Ankle (cm) 32 Left Calf (cm) 45.5 Left Ankle (cm) 32.5 WC - Nurse 2 - General Ulcer CM Notes Start: 09/13/25 11:02 Freq: Status: Active Protocol: Activity Type Activity Date Activity User E-sign Co-sign Detail Recorded Client Recorded Date Recorded By Document 09/13/25 11:50 [id number] 09/13/25 12:11 09/13/25 11:50 Wound Center Nurse 2 #22 R Medial/Lateral leg -Time 11:55 -Correct Patient Yes -Correct Side, Site, Position Yes -Correct Procedure Yes -Procedure Performed Yes -Type of Procedure Debridement -Clinical Debridement Subcutaneous -Tissue Removed Subcutaneous -Post Debridement (cm) - Length 9.6 -Post Debridement (cm) - Width 26.0 -Post Debridement (cm) - Depth 0.1 -Total Square (Post) (cm) 249.60 -Area of Debridement (cm) - Length 9.6 -Area of Debridement (cm) - Width 26.0 -Total Square (Area) (cm) 249.60 -Tunneling No -Undermining/Tunneling No -Circular Undermining No -Wound/Ulcer Outcome Not Healed -Ulcer Cleansing Rinsed/ Irrigated with Saline -Foul Odor after Cleansing No -Bioengineered Tissue No -Bleeding Controlled with Pressure -Treatment Response Procedure Tolerated Well -Offloading No -Debridement - Subq, 1st 20sq cm No #18 Left medial LE cluster -Time 11:56 -Correct Patient Yes -Correct Side, Site, Position Yes -Correct Procedure Yes -Procedure Performed Yes -Type of Procedure Debridement -Clinical Debridement Subcutaneous -Tissue Removed Subcutaneous -Post Debridement (cm) - Length 6.0 -Post Debridement (cm) - Width 13.0 -Post Debridement (cm) - Depth 0.1 -Total Square (Post) (cm) 78.00 -Area of Debridement (cm) - Length 6.0 -Area of Debridement (cm) - Width 13.0 -Total Square (Area) (cm) 78.00 -Tunneling No -Undermining/Tunneling No -Circular Undermining No -Wound/Ulcer Outcome Not Healed -Ulcer Cleansing Rinsed/ Irrigated with Saline -Foul Odor after Cleansing No -Bioengineered Tissue No -Bleeding Controlled with Pressure -Treatment Response Procedure Tolerated Well -Offloading No -Debridement - Subq, 1st 20sq cm Yes -Debridement, SubQ, ea addt'l 20sq cm 16 or part thereof Pain Scale: 0-10 Numeric Is Patient Pain Free? Yes WC - Nurse 3 - General Ulcer D/C NN Start: 09/13/25 11:02 Freq: Status: Active Protocol: Activity Type Activity Date Activity User E-sign Co-sign Detail Recorded Client Recorded Date Recorded By Document 09/13/25 12:41 TS [id number] 09/13/25 12:44 TS 09/13/25 12:41 Wound Care Center Nurse 3 #22 R Medial/Lateral leg -Ulcer Cleansing Rinsed/ Irrigated with Saline -Primary Dressing Applied Aquacel Extra, Optilok 6.5x10 -Other Dressing kerlix -Primary Dressing Covered/Secured with Secured with Tape -Aquacel Extra 2 -Optilok 6.5x10 1 #18 Left medial LE cluster -Ulcer Cleansing Rinsed/ Irrigated with Saline -Primary Dressing Applied Aquacel Extra, Optilok 6.5x10 -Other Dressing kerlix -Primary Dressing Covered/Secured with Secured with Tape -Aquacel Extra 1 -Optilok 6.5x10 1 BLE -Lotion applied to leg before No compression wrap -Other farrow wraps Pain Scale: 0-10 Numeric Is Patient Pain Free? Yes WC - Visit Discharge Discharge Condition Stable Ambulatory Status Walker Transportation Private Auto Medication Reconcilliation completed & No provided to patient/care provider Clinical Summary of Care Provided Yes Additional Wound Wound debrided: right medial leg Laterality: Right Type of Debridement: Excisional debridement Anesthesia Used: 4% Lidocaine Solution, 5% Lidocaine Gel and Cetacaine Depth: Down to and including healthy tissue and in the subcutaneous layer Percentage of wound debrided: 100 Instrument Used: - (Misonix ultrasonic debridement) Tissue Removed: Yellow slough, devitalized tissue Severity: Fat Layer Exposed Amount of bleeding with debridement: Mild Bleeding Controlled with: Compression and gauze Patient tolerated procedure: Patient tolerated procedure well Assessment/Plan Assessment/Plan (1) Lymphedema: CODE(S): I89.0 - Lymphedema, not elsewhere classified (2) Hypertension: CODE(S): I10 - Essential (primary) hypertension QUALIFIERS: Hypertension type: primary hypertension Qualified Code(s): I10 - Essential (primary) hypertension (3) Hyperlipidemia: CODE(S): E78.5 - Hyperlipidemia, unspecified QUALIFIERS: Hyperlipidemia type: mixed hyperlipidemia Qualified Code(s): E78.2 - Mixed hyperlipidemia (4) History of DVT (deep vein thrombosis): CODE(S): Z86.718 - Personal history of other venous thrombosis and embolism (5) Venous insufficiency (chronic) (peripheral): CODE(S): I87.2 - Venous insufficiency (chronic) (peripheral) (6) Venous ulcer of left lower extremity with varicose veins: CODE(S): I83.029 - Varicose veins of left lower extremity with ulcer of unspecified site (7) Edema: CODE(S): R60.9 - Edema, unspecified QUALIFIERS: Edema type: unspecified Qualified Code(s): R60.9 - Edema, unspecified (8) 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 At home wound-care instructions: Theraskin #10 removed today. Right LE ulcer will be dressed with Calcium alginate and ABD and covered with Kerlix, changed daily for heavy drainage. Will continue to use Circaid compression garments and cover. Left medial LE will be dressed with Fibracol and calcium alginate and ABD and kerlix for heavy drainage. Due to his chronic lymphedema and being unable to don traditional compression stockings and the presence of venous ulcers on his LE b/l, it is medically necessary for him to have Circaid compression garments to bilateral lower legs. He is using Circaid compression to both legs. I suspect he is not very compliant with his lymphedema pumps and not getting adequate compression with tubigrips and Circaids. Due to the delayed progress in wound healing of his venous ulcers, we discussed applying for advanced wound healing product for healing his ulcer. Due to the size of his ulcer, Theraskin application approval was requested from his insurance as it is medically necessary for salvaging his limb and healing his ulcer. He has previously had treatment with Theraskin to his left lower leg with improvement in October 2023. Insurance only allowed 3 applications at that time. It is medically necessary for application of Theraskin to his right lower extremity ulcer to salvage his limb and heal his ulcer and this has been approved for 10 applications which have been completed as of today. He would benefit from application of Theraskin in decreasing the size and healing his left lower leg ulcer as well to salvage his limb and this will be applied for through his insurance. He is using Circaid compression wraps. Off-loading: The patient was instructed to avoid pressure and friction on the affected areas. Reposition every 2 hours at minimum. Avoid prolonged standing and/or dangling of legs. When seated, feet should be elevated at chest level. Frequent ambulation is encouraged. Encouraged lymphedema pump use. Diet: Patient encouraged to increase protein intake while taking caution to avoid high carbohydrate and/or sugar intake. Labs/cultures/imaging: Wound culture showed Pseudomonas, Escherichia hermannii, Raoultella planticola, Vancomycin Resist. E. faecalis, Alcaligenes faecalis ssp faeca, Staphylococcus cohnii urealyti and anaerobic bacteria on 06/15/24 and he completed on Levofloxacin and Augmentin. Wound culture taken today on right lateral ulcer which showed Raoultella planticola, Staph hemolyticus, staph epidermidis and morganella morganii but no anaeroobic bacteria, Levofloxacin and doxycyline were prescribed based on culture results. Labs ordered 10/19/2024. Vitamin D was low A1C 5.4% Wound culture from 12/07/24 was positive for Providencia stuartii, Vancomycin resistant E. Faecalis, Corynebacterium striatum and completed Augmentin orally. Follow-up: Return in 1 week for wound care follow up and change dressings daily. Return sooner or report to the emergency room should symptoms worsen, or new symptoms arise. Note: [employer] speech recognition principal statistical scientist software was used to create portions of this document. Sound-alike and misspelled words, as well as other principal statistical scientist errors may be contained in the documentation.
[2025-09-20 11:25] VITALS: BP 148/78; PULSE 69; RESP 16; TEMP 35.8
--- NOTE | 2025-09-20 12:47 | PN.PCM_ITS ---
History of Present Illness Date of Service: 09/20/25 Chief Complaint: venous ulcers of left lower extremity and right lower extremity History of Wound: Mauricio is a 70 yo gentleman who is here today for evaluation of ulcers to to his bilateral lower legs. He has been treated multiple times in the past at the wound healing center for similar ulcers. The left LE ulcer started after he developed increased swelling and blisters of left leg in October and the right leg started sometime at the end of October. He was seen at PCP's office a culture was taken and it was resistant to several antibiotics. He was treated initially with Levaquin but had myalgias and then was treated with doxycycline which he finished 2 days ago. He denies improvement and is having swelling to his left calf and thigh. He has been having swelling to both lower extremities for many years and it has worsened over the last few months. He has not been compliant with compression. He has had increased pain especially in the left leg. He has clear yellow drainage and redness without odor or warmth. He is anti- coagulated on coumadin. He has been washing with Dial soap and witch ifrah. He had been using Collagen at times and using Calcium Alginate and covering with ABD pads during October. He was treated with 3M compression and Aquacel Ag. He was referred to the wound center for ongoing treatment. His ulcers have moderate to heavy drainage. He was in the hospital from 11/30/22 until 12/09/22 for treatment of cellulitis and edema. He underwent treatment with Vancomycin and IV lasix and compression. Discharged on 12/09/22. He returned to his assisted living apartment on Tuesday12/21/22. Wound culture from 12/07/24 was positive for Providencia stuartii, Vancomycin resistant E. Faecalis, Corynebacterium striatum and completed Augmentin orally. His edema is better this week and he is tolerating Circaid compression. 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 He continues to use his lymphedema pumps but continues to have pain with use of these pumps. 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 Subjective Subjective Mauricio is a 70-year-old male with longstanding history of chronic venous ulceration to the left lower extremity and a right lower extremity venous ulcer that is nearly circumferential. There has been small improvement since his last visit. He has was treated with 10 applications of Theraskin to his right lower leg. His edema is stable today. He is more compliant with elevation but still is not compliant with compression pump frequency due to pain with use of pumps. He has been applying KATE wraps over his Circaids for extra compression. Objective Data Objective Data Vital Signs: Vital Signs Temp Pulse Resp BP O2 Del Method 96.5 F L 69 16 148/78 H Room Air 09/20/25 11:25 09/20/25 11:25 09/20/25 11:09/20/25 11:09/20/25 11:25 Oxygen Delivery Method Room Air Physical Exam Const alert, oriented x3 and no apparent distress General Appearance: cooperative and comfortable HEENT normocephalic and head/scalp atraumatic Lymph Lymphatic: lymphedema moderate Resp normal respiratory effort Effort and Inspection: able to speak in complete sentences Cardio regular rate and regular rhythm Extremity Extremity Narrative: His ulcers are painful and the right lower leg remains more swollen than his left but there is good granulation tissue throughout and mild amount of slough that is nearly completely removed post - debridement, edges of ulcers are beveled without rolled borders bilaterally and the ulcer has healed behind his leg dividing the original ulcer into 2 separate ulcers - medial and lateral, left lower leg ulcer remains with good granulation tissue through ulcer with mild slough that is removed post-debridement and is slightly smaller in size General Extremity: edema bilateral lower extremity Details: severe Skin General Skin Exam: venous stasis and dermatitis Wounds: wounds noted Psych mental status grossly normal, thought process normal, cooperative and affect normal Debridement Note Debridement Note Wound debrided: left medial LE ulcer Laterality: Left Type of Debridement: Excisional debridement Anesthesia Used: 5% Lidocaine Gel and Cetacaine Depth: Down to and including healthy tissue and in the subcutaneous layer Percentage of wound debrided: 100 Instrument Used: - (Misonix ultrasonic debridement) Tissue Removed: Yellow slough, devitalized tissue Severity: Fat Layer Exposed Amount of bleeding with debridement: Mild Bleeding Controlled with: Compression and gauze Patient tolerated procedure: Patient tolerated procedure well Post-Debridement Measurements and Additional Note: Post-Debridement Measurements/Treatment WC - Nurse 1 - General Ulcer Assessment Start: 09/13/25 11:02 Freq: Status: Active Protocol: ONDINA Activity Type Activity Date Activity User E-sign Co-sign Detail Recorded Client Recorded Date Recorded By Document 09/13/25 11:02 RB [id number] 09/13/25 11:10 RB Document 09/20/25 11:25 TS [id number] 09/20/25 11:43 TS 09/13/25 09/20/25 11:02 11:25 - Today's Visit Information Type of service Follow-up Visit Follow-up Visit (Physician/TRANSFORMER REPAIRER (Physician/TRANSFORMER REPAIRER ) ) Arrival Mode Ambulatory, Walker Walker Transfer Assistance None Patient Identification Verified (Name & Yes Yes ) Patient Requires Transmission-Based No No Precautions Safety Precautions Fall Prevention Vital Signs Temperature (97.8 F-99.1 F) 96.3 F L 96.5 F L Temperature Source Temporal Temporal Pulse Rate (60-100) 80 69 Pulse Location Monitor Monitor Respiratory Rate (12-18) 18 16 Respiratory rate source Observation Observation Oxygen Delivery Method Room Air Blood Pressure (90/60-120/80) 111/45 L 148/78 H Blood Pressure Mean (mm Hg) 67 101 Source Monitor Monitor Position Semi-Fowlers Sitting Blood Pressure Location Left Arm Left Arm History Since Last Visit- (Skip if this is Patient's initial visit) Have you changed medications since your No No last visit? Any new allergies or adverse reactions No No Had a fall/change in ADL's that may No No increase risk of falls Signs or symptoms of abuse and/or No No neglect since last visit Have you been in the hospital since your No No last visit? Has dressing in place as prescribed Yes Yes Has compression in place as prescribed Yes Has offloadiing in place as prescribed N/A N/A Experienced any changes in pain level or No management Left Footwear Regular Shoe Right Footwear Regular Shoe Pain Scale: 0-10 Numeric Is Patient Pain Free? Yes Yes - Nurse 1 - General Ulcer Measurement Start: 09/13/25 11:02 Freq: Status: Active Protocol: Activity Type Activity Date Activity User E-sign Co-sign Detail Recorded Client Recorded Date Recorded By Document 09/13/25 11:02 RB [id number] 09/13/25 11:10 RB Document 09/20/25 11:25 TS [id number] 09/20/25 11:43 TS 09/13/25 09/20/25 11:02 11:25 Wound Center Nurse 1 #22 R Medial leg -Combined with other wound No No -Current Size (cm) - Length 10.5 9.8 -Current Size (cm) - Width 31 28 -Current Size (cm) - Depth 0.1 0.1 -Total Square Cm 325.5 274.4 -Date of Last Picture (Recall this 09/13/25 09/20/25 field) -Photo Taken Yes Yes -Tunneling No -Undermining/Tunneling No No -Circular Undermining No No -Exudate Amt Large Medium -Exudate Type Serosanguineous Serosanguineous -Wound Margin Distinct, Distinct, Outline Outline Attached Attached -Granulation Amt Small (1-33%) Medium (34-66%) -Granulation Quality [place],Red -Slough/Fibrin Yes Yes -Necrosis Amt Medium (34-66%) Large (67-100%) -Necrotic Tissue Type Eschar -Structure Exposed N/A None/Limited to Skin Breakdown -Texture (Marie-wound Skin Appearance) Assessed Assessed -Moisture (Marie-wound Skin Appearance) Assessed Assessed -Color (Marie-wound Skin Appearance) Assessed, Assessed Hemosiderin Staining -Temperature (Marie-wound Skin No Abnormality No Abnormality Appearance) (Pt Warm) (Pt Warm) -Tenderness on Palpation (Marie-wound No Skin Appearance) -Ulcer Cleansing Wound Cleanser Soap and Water -Foul Odor after Cleansing No No -Anesthetic Used 5% Lidocaine 5% Lidocaine Gel Gel #18 Left medial LE cluster -Combined with other wound No No -Current Size (cm) - Length 6 7 -Current Size (cm) - Width 13 12.2 -Current Size (cm) - Depth 0.1 0.1 -Total Square Cm 78 85.4 -Date of Last Picture (Recall this 09/13/25 09/20/25 field) -Photo Taken Yes Yes -Tunneling No -Undermining/Tunneling No No -Circular Undermining No No -Exudate Amt Large -Exudate Type Serosanguineous Serosanguineous -Wound Margin Distinct, Distinct, Outline Outline Attached Attached -Granulation Amt Small (1-33%) Medium (34-66%) -Granulation Quality Red [place],Red -Slough/Fibrin Yes -Necrosis Amt Large (67-100%) Large (67-100%) -Necrotic Tissue Type Eschar Adherent Slough -Structure Exposed N/A None/Limited to Skin Breakdown -Texture (Marie-wound Skin Appearance) Assessed Assessed -Moisture (Marie-wound Skin Appearance) Assessed Assessed -Color (Marie-wound Skin Appearance) Hemosiderin Assessed Staining -Temperature (Marie-wound Skin No Abnormality No Abnormality Appearance) (Pt Warm) (Pt Warm) -Tenderness on Palpation (Marie-wound No Skin Appearance) -Ulcer Cleansing Wound Cleanser Soap and Water -Foul Odor after Cleansing No No -Anesthetic Used 5% Lidocaine 5% Lidocaine Gel Gel Lower Limb Edema Present Yes Right Calf (cm) 48 Right Ankle (cm) 32 Left Calf (cm) 45.5 Left Ankle (cm) 32.5 WC - Nurse 2 - General Ulcer CM Notes Start: 09/13/25 11:02 Freq: Status: Active Protocol: Activity Type Activity Date Activity User E-sign Co-sign Detail Recorded Client Recorded Date Recorded By Document 09/13/25 11:50 [id number] 09/13/25 12:11 Document 09/20/25 11:53 [id number] 09/20/25 12:14 09/13/25 09/20/25 11:50 11:53 Wound Center Nurse 2 #23 Right lateral leg -Time 11:55 -Correct Patient Yes -Correct Side, Site, Position Yes -Correct Procedure Yes -Procedure Performed Yes -Type of Procedure Debridement -Clinical Debridement Subcutaneous -Tissue Removed Subcutaneous -Post Debridement (cm) - Length 8.0 -Post Debridement (cm) - Width 10.8 -Post Debridement (cm) - Depth 0.1 -Total Square (Post) (cm) 86.40 -Area of Debridement (cm) - Length 9.8 -Area of Debridement (cm) - Width 10.8 -Total Square (Area) (cm) 105.84 -Tunneling No -Undermining/Tunneling No -Circular Undermining No -Wound/Ulcer Outcome Not Healed -Ulcer Cleansing Rinsed/ Irrigated with Saline -Foul Odor after Cleansing No -Bioengineered Tissue No -Bleeding Controlled with Pressure -Treatment Response Procedure Tolerated Well -Offloading No -Debridement - Subq, 1st 20sq cm Yes -Debridement, SubQ, ea addt'l 20sq cm 13 or part thereof #22 R Medial leg -Time 11:55 11:54 -Correct Patient Yes Yes -Correct Side, Site, Position Yes Yes -Correct Procedure Yes Yes -Procedure Performed Yes Yes -Type of Procedure Debridement Debridement -Clinical Debridement Subcutaneous Subcutaneous -Tissue Removed Subcutaneous Subcutaneous -Post Debridement (cm) - Length 9.6 9.8 -Post Debridement (cm) - Width 26.0 11.0 -Post Debridement (cm) - Depth 0.1 0.1 -Total Square (Post) (cm) 249.60 107.80 -Area of Debridement (cm) - Length 9.6 9.8 -Area of Debridement (cm) - Width 26.0 11.0 -Total Square (Area) (cm) 249.60 107.80 -Tunneling No No -Undermining/Tunneling No No -Circular Undermining No No -Wound/Ulcer Outcome Not Healed Not Healed -Ulcer Cleansing Rinsed/ Rinsed/ Irrigated with Irrigated with Saline Saline -Foul Odor after Cleansing No No -Bioengineered Tissue No No -Bleeding Controlled with Pressure Pressure -Treatment Response Procedure Procedure Tolerated Well Tolerated Well -Offloading No No -Debridement - Subq, 1st 20sq cm No No #18 Left medial LE cluster -Time 11:56 11:54 -Correct Patient Yes Yes -Correct Side, Site, Position Yes Yes -Correct Procedure Yes Yes -Procedure Performed Yes Yes -Type of Procedure Debridement Debridement -Clinical Debridement Subcutaneous Subcutaneous -Tissue Removed Subcutaneous Subcutaneous -Post Debridement (cm) - Length 6.0 6.0 -Post Debridement (cm) - Width 13.0 14.0 -Post Debridement (cm) - Depth 0.1 0.1 -Total Square (Post) (cm) 78.00 84.00 -Area of Debridement (cm) - Length 6.0 6.0 -Area of Debridement (cm) - Width 13.0 14.0 -Total Square (Area) (cm) 78.00 84.00 -Tunneling No No -Undermining/Tunneling No No -Circular Undermining No No -Wound/Ulcer Outcome Not Healed Not Healed -Ulcer Cleansing Rinsed/ Rinsed/ Irrigated with Irrigated with Saline Saline -Foul Odor after Cleansing No No -Bioengineered Tissue No No -Bleeding Controlled with Pressure Pressure -Treatment Response Procedure Procedure Tolerated Well Tolerated Well -Offloading No No -Debridement - Subq, 1st 20sq cm Yes No -Debridement, SubQ, ea addt'l 20sq cm 16 or part thereof Pain Scale: 0-10 Numeric Is Patient Pain Free? Yes Yes WC - Nurse 3 - General Ulcer D/C NN Start: 09/13/25 11:02 Freq: Status: Active Protocol: Activity Type Activity Date Activity User E-sign Co-sign Detail Recorded Client Recorded Date Recorded By Document 09/13/25 12:41 TS [id number] 09/13/25 12:44 TS Document 09/20/25 12:43 TS [id number] 09/20/25 12:45 TS 09/13/25 09/20/25 12:41 12:43 Wound Care Center Nurse 3 #23 Right lateral leg -Primary Dressing Applied Aquacel Extra, Optilok 6.5x10 -Other Dressing kerlix -Primary Dressing Covered/Secured with Secured with Tape -Aquacel Extra 1 -Optilok 6.5x10 1 #22 R Medial leg -Ulcer Cleansing Rinsed/ Irrigated with Saline -Primary Dressing Applied Aquacel Extra, Aquacel Extra, Optilok 6.5x10 Optilok 6.5x10 -Other Dressing kerlix -Primary Dressing Covered/Secured with Secured with Tape -Aquacel Extra 2 1 -Optilok 6.5x10 1 1 #18 Left medial LE cluster -Ulcer Cleansing Rinsed/ Irrigated with Saline -Primary Dressing Applied Aquacel Extra, Aquacel Extra, Optilok 6.5x10 Optilok 5x5 1/2 -Other Dressing kerlix -Primary Dressing Covered/Secured with Secured with Tape -Aquacel Extra 1 1 -Optilok 5x5 1/2 1 -Optilok 6.5x10 1 BLE -Lotion applied to leg before No compression wrap -Other farrow wraps farrow wraps Pain Scale: 0-10 Numeric Is Patient Pain Free? Yes Yes WC - Visit Discharge Discharge Condition Stable Stable Ambulatory Status Walker Walker Transportation Private Auto Private Auto Medication Reconcilliation completed & No No provided to patient/care provider Clinical Summary of Care Provided Yes Yes Additional Wound Wound debrided: right medial leg Laterality: Right Type of Debridement: Excisional debridement Anesthesia Used: 4% Lidocaine Solution, 5% Lidocaine Gel and Cetacaine Depth: Down to and including healthy tissue and in the subcutaneous layer Percentage of wound debrided: 100 Instrument Used: - (Misonix ultrasonic debridement) Tissue Removed: Yellow slough, devitalized tissue Severity: Fat Layer Exposed Amount of bleeding with debridement: Mild Bleeding Controlled with: Compression and gauze Patient tolerated procedure: Patient tolerated procedure well Additional Wound Wound debrided: right lateral leg Laterality: Right Type of Debridement: Excisional debridement Anesthesia Used: 5% Lidocaine Gel and Cetacaine Depth: Down to and including healthy tissue and in the subcutaneous layer Percentage of wound debrided: 100 Instrument Used: - (Misonix ultrasonic debridement) Severity: Fat Layer Exposed Amount of bleeding with debridement: Mild Bleeding Controlled with: Pressure Patient tolerated procedure: Patient tolerated procedure well Assessment/Plan Assessment/Plan (1) Lymphedema: CODE(S): I89.0 - Lymphedema, not elsewhere classified (2) Hypertension: CODE(S): I10 - Essential (primary) hypertension QUALIFIERS: Hypertension type: primary hypertension Qualified Code(s): I10 - Essential (primary) hypertension (3) Hyperlipidemia: CODE(S): E78.5 - Hyperlipidemia, unspecified QUALIFIERS: Hyperlipidemia type: mixed hyperlipidemia Qualified Code(s): E78.2 - Mixed hyperlipidemia (4) History of DVT (deep vein thrombosis): CODE(S): Z86.718 - Personal history of other venous thrombosis and embolism (5) Venous insufficiency (chronic) (peripheral): CODE(S): I87.2 - Venous insufficiency (chronic) (peripheral) (6) Venous ulcer of left lower extremity with varicose veins: CODE(S): I83.029 - Varicose veins of left lower extremity with ulcer of unspecified site (7) Edema: CODE(S): R60.9 - Edema, unspecified QUALIFIERS: Edema type: unspecified Qualified Code(s): R60.9 - Edema, unspecified (8) 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 At home wound-care instructions: Right LE ulcers will be dressed with Calcium alginate and ABD and covered with Kerlix, changed daily for heavy drainage. Will continue to use Circaid compression garments and cover. Left medial LE will be dressed with Fibracol and calcium alginate and ABD and kerlix for heavy drainage. Due to his chronic lymphedema and being unable to don traditional compression stockings and the presence of venous ulcers on his LE b/l, it is medically necessary for him to have Circaid compression garments to bilateral lower legs. He is using Circaid compression to both legs. I suspect he is not very compliant with his lymphedema pumps and not getting adequate compression with tubigrips and Circaids. Due to the delayed progress in wound healing of his venous ulcers, we discussed applying for advanced wound healing product for healing his ulcer. Due to the size of his ulcer, Theraskin application approval was requested from his insurance as it is medically necessary for salvaging his limb and healing his ulcer. He has previously had treatment with Theraskin to his left lower leg with improvement in October 2023. Insurance only allowed 3 applications at that time. It is medically necessary for application of Theraskin to his right lower extremity ulcer to salvage his limb and heal his ulcer and this has been approved for 10 applications which have been completed as of today. He would benefit from application of Theraskin in decreasing the size and healing his left lower leg ulcer as well to salvage his limb and this approved for through his insurance. He is using Circaid compression wraps. Off-loading: The patient was instructed to avoid pressure and friction on the affected areas. Reposition every 2 hours at minimum. Avoid prolonged standing and/or dangling of legs. When seated, feet should be elevated at chest level. Frequent ambulation is encouraged. Encouraged lymphedema pump use. Diet: Patient encouraged to increase protein intake while taking caution to avoid high carbohydrate and/or sugar intake. Labs/cultures/imaging: Wound culture showed Pseudomonas, Escherichia hermannii, Raoultella planticola, Vancomycin Resist. E. faecalis, Alcaligenes faecalis ssp faeca, Staphylococcus cohnii urealyti and anaerobic bacteria on 06/15/24 and he completed on Levofloxacin and Augmentin. Wound culture taken today on right lateral ulcer which showed Raoultella planticola, Staph hemolyticus, staph epidermidis and morganella morganii but no anaeroobic bacteria, Levofloxacin and doxycyline were prescribed based on culture results. Labs ordered 10/19/2024. Vitamin D was low A1C 5.4% Wound culture from 12/07/24 was positive for Providencia stuartii, Vancomycin resistant E. Faecalis, Corynebacterium striatum and completed Augmentin orally. Follow-up: Return in 1 week for wound care follow up and change dressings daily. Return sooner or report to the emergency room should symptoms worsen, or new symptoms arise. Note: [employer] speech recognition retirement plan specialist software was used to create portions of this document. Sound-alike and misspelled words, as well as other retirement plan specialist errors may be contained in the documentation.
--- NOTE | 2025-09-23 09:10 | WC ---
PHOTO-RIGHT LEG 09/20/25
--- NOTE | 2025-09-23 09:11 | WC ---
PHOTO-RIGHT LEG 09/20/25
--- NOTE | 2025-09-23 09:11 | WC ---
PHOTO-LEFT LEG 09/20/25
[2025-09-27 10:46] VITALS: BP 161/92; PULSE 72; RESP 15; TEMP 36.2
--- NOTE | 2025-09-27 12:11 | WC ---
PHOTO-RLE 09/27/25
--- NOTE | 2025-09-27 12:12 | WC ---
PHOTO-RLE 09/27/25
--- NOTE | 2025-09-27 12:23 | WC ---
PHOTO-LLE 09/27/25
--- NOTE | 2025-09-27 12:24 | WC ---
PHOTO-LEFT BUTTOCK 09/27/25
--- NOTE | 2025-09-27 12:45 | PCM.WC.PN ---
History of Present Illness Date of Service: 09/27/25 Chief Complaint: venous ulcers of left lower extremity and right lower extremity History of Wound: Mauricio is a 70 yo gentleman who is here today for evaluation of ulcers to to his bilateral lower legs. He has been treated multiple times in the past at the wound healing center for similar ulcers. The left LE ulcer started after he developed increased swelling and blisters of left leg in October and the right leg started sometime at the end of October. He was seen at PCP's office a culture was taken and it was resistant to several antibiotics. He was treated initially with Levaquin but had myalgias and then was treated with doxycycline which he finished 2 days ago. He denies improvement and is having swelling to his left calf and thigh. He has been having swelling to both lower extremities for many years and it has worsened over the last few months. He has not been compliant with compression. He has had increased pain especially in the left leg. He has clear yellow drainage and redness without odor or warmth. He is anti-coagulated on coumadin. He has been washing with Dial soap and witch ifrah. He had been using Collagen at times and using Calcium Alginate and covering with ABD pads during October. He was treated with 3M compression and Aquacel Ag. He was referred to the wound center for ongoing treatment. His ulcers have moderate to heavy drainage. He was in the hospital from 11/30/22 until 12/09/22 for treatment of cellulitis and edema. He underwent treatment with Vancomycin and IV lasix and compression. Discharged on 12/09/22. He returned to his assisted living apartment on Tuesday12/21/22. Wound culture from 12/07/24 was positive for Providencia stuartii, Vancomycin resistant E. Faecalis, Corynebacterium striatum and completed Augmentin orally. His edema is better this week and he is tolerating Circaid compression. 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 He continues to use his lymphedema pumps but continues to have pain with use of these pumps. 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 Subjective Subjective Mauricio is a 70-year-old male with longstanding history of chronic venous ulceration to the left lower extremity and a right lower extremity venous ulcer that is nearly circumferential. There has been small improvement since his last visit. He has was treated with 10 applications of Theraskin to his right lower leg. His edema is stable today. He is more compliant with elevation but still is not compliant with compression pump frequency due to pain with use of pumps. He has been applying MARCIO wraps over his Circaids for extra compression. Objective Data Objective Data Vital Signs: Vital Signs Temp Pulse Resp BP O2 Del Method 97.2 F L 72 15 161/92 H Room Air 09/27/25 10:46 09/27/25 10:46 09/27/25 10:46 09/27/25 10:46 09/20/25 11:25 Oxygen Delivery Method Room Air Physical Exam Const alert, oriented x3 and no apparent distress General Appearance: cooperative and comfortable HEENT normocephalic and head/scalp atraumatic Lymph Lymphatic: lymphedema moderate Resp normal respiratory effort Effort and Inspection: able to speak in complete sentences Cardio regular rate and regular rhythm Extremity Extremity Narrative: His ulcers are painful and the right lower leg remains more swollen than his left but there is good granulation tissue throughout and mild amount of slough that is nearly completely removed post - debridement, edges of ulcers are beveled without rolled borders bilaterally and the ulcer remains healed behind his leg dividing the original ulcer into 2 separate ulcers - medial and lateral, left lower leg ulcer remains with good granulation tissue through ulcer with mild slough that is removed post-debridement and is slightly smaller in size General Extremity: edema bilateral lower extremity Details: severe Skin General Skin Exam: venous stasis and dermatitis Wounds: wounds noted Psych mental status grossly normal, thought process normal, cooperative and affect normal Debridement Note Debridement Note Wound debrided: left medial LE ulcer Laterality: Left Type of Debridement: Excisional debridement Anesthesia Used: 5% Lidocaine Gel and Cetacaine Depth: Down to and including healthy tissue and in the subcutaneous layer Percentage of wound debrided: 100 Instrument Used: - (Misonix ultrasonic debridement) Tissue Removed: Yellow slough, devitalized tissue Severity: Fat Layer Exposed Amount of bleeding with debridement: Mild Bleeding Controlled with: Compression and gauze Patient tolerated procedure: Patient tolerated procedure well Post-Debridement Measurements and Additional Note: Post-Debridement Measurements/Treatment WC - Nurse 1 - General Ulcer Assessment Start: 09/13/25 11:02 Freq: Status: Active Protocol: .MARIAJOSE Activity Type Activity Date Activity User E-sign Co-sign Detail Recorded Client Recorded Date Recorded By Document 09/13/25 11:02 RB [id number] 09/13/25 11:10 RB Document 09/20/25 11:25 TS [id number] 09/20/25 11:43 TS Document 09/27/25 10:46 TS [id number] 09/27/25 11:06 TS 09/13/25 09/20/25 09/27/25 11:02 11:25 10:46 - Today's Visit Information Type of service Follow-up Visit Follow-up Visit Follow-up Visit (Physician/WELL TREATMENT OFFSIDER (Physician/WELL TREATMENT OFFSIDER (Physician/WELL TREATMENT OFFSIDER ) ) ) Arrival Mode Ambulatory, Walker Walker Walker Transfer Assistance None Patient Identification Verified (Name & Yes Yes Yes ) Patient Requires Transmission-Based No No No Precautions Safety Precautions Fall Prevention Fall Prevention Vital Signs Temperature (97.8 F-99.1 F) 96.3 F L 96.5 F L 97.2 F L Temperature Source Temporal Temporal Temporal Pulse Rate (60-100) 80 69 72 Pulse Location Monitor Monitor Monitor Respiratory Rate (12-18) 18 16 15 Respiratory rate source Observation Observation Observation Oxygen Delivery Method Room Air Blood Pressure (90/60-120/80) 111/45 L 148/78 H 161/92 H Blood Pressure Mean (mm Hg) 67 101 115 Source Monitor Monitor Monitor Position Semi-Fowlers Sitting Sitting Blood Pressure Location Left Arm Left Arm Right Forearm History Since Last Visit- (Skip if this is Patient's initial visit) Have you changed medications since your No No No last visit? Any new allergies or adverse reactions No No No Had a fall/change in ADL's that may No No No increase risk of falls Signs or symptoms of abuse and/or No No No neglect since last visit Have you been in the hospital since your No No No last visit? Has dressing in place as prescribed Yes Yes Yes Has compression in place as prescribed Yes Yes Has offloadiing in place as prescribed N/A N/A Yes Experienced any changes in pain level or No No management Left Footwear Regular Shoe Right Footwear Regular Shoe Pain Scale: 0-10 Numeric Is Patient Pain Free? Yes Yes Yes - Nurse 1 - General Ulcer Measurement Start: 09/13/25 11:02 Freq: Status: Active Protocol: Activity Type Activity Date Activity User E-sign Co-sign Detail Recorded Client Recorded Date Recorded By Document 09/13/25 11:02 RB [id number] 09/13/25 11:10 RB Document 09/20/25 11:25 TS [id number] 09/20/25 11:43 TS Document 09/27/25 10:46 TS [id number] 09/27/25 11:06 TS 09/13/25 09/20/25 09/27/25 11:02 11:25 10:46 Wound Center Nurse 1 #23 Right lateral leg -Current Size (cm) - Length 15.6 -Current Size (cm) - Width 6.5 -Current Size (cm) - Depth 0.1 -Total Square Cm 101.40 -Exudate Amt Large -Exudate Type Serosanguineous -Granulation Amt Medium (34-66%) -Slough/Fibrin Yes -Necrosis Amt Medium (34-66%) -Necrotic Tissue Type Adherent Slough -Texture (Marie-wound Skin Appearance) Assessed -Moisture (Marie-wound Skin Appearance) Assessed -Color (Marie-wound Skin Appearance) Assessed -Temperature (Marie-wound Skin No Abnormality Appearance) (Pt Warm) -Tenderness on Palpation (Marie-wound Yes Skin Appearance) -Ulcer Cleansing Soap and Water -Foul Odor after Cleansing No -Anesthetic Used 5% Lidocaine Gel #22 R Medial leg -Combined with other wound No No -Current Size (cm) - Length 10.5 9.8 14 -Current Size (cm) - Width 31 28 12 -Current Size (cm) - Depth 0.1 0.1 0.1 -Total Square Cm 325.5 274.4 168 -Date of Last Picture (Recall this 09/13/25 09/20/25 field) -Photo Taken Yes Yes -Tunneling No -Undermining/Tunneling No No -Circular Undermining No No -Exudate Amt Large Medium Large -Exudate Type Serosanguineous Serosanguineous Serosanguineous -Wound Margin Distinct, Distinct, Outline Outline Attached Attached -Granulation Amt Small (1-33%) Medium (34-66%) Large (67-100%) -Granulation Quality [place] Tract [place] Tract,Red -Slough/Fibrin Yes Yes No -Necrosis Amt Medium (34-66%) Large (67-100%) -Necrotic Tissue Type Eschar -Structure Exposed N/A None/Limited to Skin Breakdown -Texture (Marie-wound Skin Appearance) Assessed Assessed Assessed -Moisture (Marie-wound Skin Appearance) Assessed Assessed -Color (Marie-wound Skin Appearance) Assessed, Assessed Assessed Hemosiderin Staining -Temperature (Marie-wound Skin No Abnormality No Abnormality No Abnormality Appearance) (Pt Warm) (Pt Warm) (Pt Warm) -Tenderness on Palpation (Marie-wound No Skin Appearance) -Ulcer Cleansing Wound Cleanser Soap and Water Soap and Water -Foul Odor after Cleansing No No -Anesthetic Used 5% Lidocaine 5% Lidocaine 4% Lidocaine Gel Gel Solution #18 Left medial LE cluster -Combined with other wound No No -Current Size (cm) - Length 6 7 11 -Current Size (cm) - Width 13 12.2 7 -Current Size (cm) - Depth 0.1 0.1 0.1 -Total Square Cm 78 85.4 77 -Date of Last Picture (Recall this 09/13/25 09/20/25 field) -Photo Taken Yes Yes -Tunneling No -Undermining/Tunneling No No -Circular Undermining No No -Exudate Amt Large Large -Exudate Type Serosanguineous Serosanguineous Serosanguineous -Wound Margin Distinct, Distinct, Outline Outline Attached Attached -Granulation Amt Small (1-33%) Medium (34-66%) Medium (34-66%) -Granulation Quality Red [place] T[place],Red -Slough/Fibrin Yes Yes -Necrosis Amt Large (67-100%) Large (67-100%) Large (67-100%) -Necrotic Tissue Type Eschar Adherent Slough Adherent Slough -Structure Exposed N/A None/Limited to Skin Breakdown -Texture (Marie-wound Skin Appearance) Assessed Assessed Assessed -Moisture (Maire-wound Skin Appearance) Assessed Assessed Assessed -Color (Marie-wound Skin Appearance) Hemosiderin Assessed Assessed Staining -Temperature (Marie-wound Skin No Abnormality No Abnormality Appearance) (Pt Warm) (Pt Warm) -Tenderness on Palpation (Marie-wound No Skin Appearance) -Ulcer Cleansing Wound Cleanser Soap and Water Soap and Water -Foul Odor after Cleansing No No No -Anesthetic Used 5% Lidocaine 5% Lidocaine 5% Lidocaine Gel Gel Gel Lower Limb Edema Present Yes Right Calf (cm) 48 Right Ankle (cm) 32 Left Calf (cm) 45.5 Left Ankle (cm) 32.5 WC - Nurse 2 - General Ulcer CM Notes Start: 09/13/25 11:02 Freq: Status: Active Protocol: Activity Type Activity Date Activity User E-sign Co-sign Detail Recorded Client Recorded Date Recorded By Document 09/13/25 11:50 [id number] 09/13/25 12:11 GM Document 09/20/25 11:53 [id number] 09/20/25 12:14 GM Document 09/27/25 11:33 [id number] 09/27/25 11:56 09/13/25 09/20/25 09/27/25 11:50 11:53 11:33 Wound Center Nurse 2 #25 LLE Theraskin Documentation -Time 11:40 -Correct Patient Yes -Correct Side, Site, Position Yes -Correct Procedure No -Procedure Performed No -Tunneling No -Undermining/Tunneling No -Circular Undermining No -Wound/Ulcer Outcome Not Healed -Ulcer Cleansing Rinsed/ Irrigated with Saline -Foul Odor after Cleansing No -Bioengineered Tissue Yes -Type of Bioengineered Tissue Theraskin -Expiration Date 11/10/29 -Product Lot Number [id number] -Percent Used 100 -Lot number of Saline Used [id number] -Bleeding Controlled with Pressure -Treatment Response Procedure Tolerated Well -Offloading No -Apply Skin Sub - 1st 25 sq cm - Legs 0 -Theraskin - 102TSL (39 SQ CM) 39 Application 1-4 (per sq cm) #23 Right lateral leg -Time 11:55 11:38 -Correct Patient Yes Yes -Correct Side, Site, Position Yes Yes -Correct Procedure Yes Yes -Procedure Performed Yes Yes -Type of Procedure Debridement Debridement -Clinical Debridement Subcutaneous Subcutaneous -Tissue Removed Subcutaneous Subcutaneous -Post Debridement (cm) - Length 8.0 8.0 -Post Debridement (cm) - Width 10.8 10.5 -Post Debridement (cm) - Depth 0.1 0.1 -Total Square (Post) (cm) 86.40 84.00 -Area of Debridement (cm) - Length 9.8 8.0 -Area of Debridement (cm) - Width 10.8 10.5 -Total Square (Area) (cm) 105.84 84.00 -Tunneling No No -Undermining/Tunneling No No -Circular Undermining No No -Wound/Ulcer Outcome Not Healed Not Healed -Ulcer Cleansing Rinsed/ Rinsed/ Irrigated with Irrigated with Saline Saline -Foul Odor after Cleansing No No -Bioengineered Tissue No No -Bleeding Controlled with Pressure Pressure -Treatment Response Procedure Procedure Tolerated Well Tolerated Well -Offloading No No -Debridement - Subq, 1st 20sq cm Yes No -Debridement, SubQ, ea addt'l 20sq cm 13 or part thereof #22 R Medial leg -Time 11:55 11:54 11:38 -Correct Patient Yes Yes Yes -Correct Side, Site, Position Yes Yes Yes -Correct Procedure Yes Yes Yes -Procedure Performed Yes Yes Yes -Type of Procedure Debridement Debridement Debridement -Clinical Debridement Subcutaneous Subcutaneous Subcutaneous -Tissue Removed Subcutaneous Subcutaneous Subcutaneous -Post Debridement (cm) - Length 9.6 9.8 10 -Post Debridement (cm) - Width 26.0 11.0 14 -Post Debridement (cm) - Depth 0.1 0.1 0.1 -Total Square (Post) (cm) 249.60 107.80 140 -Area of Debridement (cm) - Length 9.6 9.8 10 -Area of Debridement (cm) - Width 26.0 11.0 14 -Total Square (Area) (cm) 249.60 107.80 140 -Tunneling No No No -Undermining/Tunneling No No No -Circular Undermining No No No -Wound/Ulcer Outcome Not Healed Not Healed Not Healed -Ulcer Cleansing Rinsed/ Rinsed/ Rinsed/ Irrigated with Irrigated with Irrigated with Saline Saline Saline -Foul Odor after Cleansing No No No -Bioengineered Tissue No No No -Bleeding Controlled with Pressure Pressure Pressure -Treatment Response Procedure Procedure Procedure Tolerated Well Tolerated Well Tolerated Well -Offloading No No No -Debridement - Subq, 1st 20sq cm No No Yes -Debridement, SubQ, ea addt'l 20sq cm 11 or part thereof #18 Left medial LE cluster -Time 11:56 11:54 11:39 -Correct Patient Yes Yes Yes -Correct Side, Site, Position Yes Yes Yes -Correct Procedure Yes Yes Yes -Procedure Performed Yes Yes Yes -Type of Procedure Debridement Debridement Debridement -Clinical Debridement Subcutaneous Subcutaneous Subcutaneous -Tissue Removed Subcutaneous Subcutaneous Subcutaneous -Post Debridement (cm) - Length 6.0 6.0 -Post Debridement (cm) - Width 13.0 14.0 -Post Debridement (cm) - Depth 0.1 0.1 -Total Square (Post) (cm) 78.00 84.00 -Area of Debridement (cm) - Length 6.0 6.0 -Area of Debridement (cm) - Width 13.0 14.0 -Total Square (Area) (cm) 78.00 84.00 -Tunneling No No No -Undermining/Tunneling No No No -Circular Undermining No No No -Wound/Ulcer Outcome Not Healed Not Healed Not Healed -Ulcer Cleansing Rinsed/ Rinsed/ Rinsed/ Irrigated with Irrigated with Irrigated with Saline Saline Saline -Foul Odor after Cleansing No No No -Bioengineered Tissue No No Yes -Type of Bioengineered Tissue Theraskin -Expiration Date 11/09/29 -Product Lot Number [id number] -Percent Used 100 -Lot number of Saline Used [id number] -Bleeding Controlled with Pressure Pressure Pressure -Treatment Response Procedure Procedure Procedure Tolerated Well Tolerated Well Tolerated Well -Offloading No No No -Debridement - Subq, 1st 20sq cm Yes No No -Debridement, SubQ, ea addt'l 20sq cm 16 or part thereof -Apply Skin Sub - 1st 25 sq cm - Legs 1 -Apply Skin Sub - each addt'l 25 sq cm 1 - Legs -Theraskin - 102TSL (39 SQ CM) 78 Application 1-4 (per sq cm) Pain Scale: 0-10 Numeric Is Patient Pain Free? Yes Yes Yes WC - Nurse 3 - General Ulcer D/C NN Start: 09/13/25 11:02 Freq: Status: Active Protocol: Activity Type Activity Date Activity User E-sign Co-sign Detail Recorded Client Recorded Date Recorded By Document 09/13/25 12:41 TS [id number] 09/13/25 12:44 TS Document 09/20/25 12:43 TS [id number] 09/20/25 12:45 TS Document 09/27/25 12:23 GM(2) [id number] 09/27/25 12:25 GM(2) 09/13/25 09/20/25 09/27/25 12:41 12:43 12:23 Wound Care Center Nurse 3 #23 Right lateral leg -Ulcer Cleansing Not Cleansed -Foul Odor after Cleansing No -Negative Pressure Wound Therapy N/A -Primary Dressing Applied Aquacel Extra, Aquacel Extra, Optilok 6.5x10 Optilok 6.5x10 -Other Dressing kerlix -Primary Dressing Covered/Secured with Secured with Dry Gauze & Tape Roll Gauze, Secured with Tape -Aquacel Extra 1 1 -Optilok 6.5x10 1 1 #22 R Medial leg -Ulcer Cleansing Rinsed/ Not Cleansed Irrigated with Saline -Foul Odor after Cleansing No -Negative Pressure Wound Therapy N/A -Primary Dressing Applied Aquacel Extra, Aquacel Extra, Aquacel Extra, Optilok 6.5x10 Optilok 6.5x10 Optilok 6.5x10 -Other Dressing kerlix -Primary Dressing Covered/Secured with Secured with Dry Gauze & Tape Roll Gauze, Secured with Tape -Aquacel Extra 2 1 1 -Optilok 6.5x10 1 1 1 #18 Left medial LE cluster -Ulcer Cleansing Rinsed/ Not Cleansed Irrigated with Saline -Foul Odor after Cleansing No -Negative Pressure Wound Therapy N/A -Primary Dressing Applied Aquacel Extra, Aquacel Extra, Aquacel Extra, Optilok 6.5x10 Optilok 5x5 1/2 Optilok 8x12 -Other Dressing kerlix -Primary Dressing Covered/Secured with Secured with Tape -Aquacel Extra 1 1 1 -Optilok 5x5 1/2 1 -Optilok 6.5x10 1 -Optilok 8x12 1 BLE -Lotion applied to leg before No compression wrap -Compression Wrap Marcio Wrap -Other farrow wraps farrow wraps Circaides Treatment Response Procedure Tolerated Well Pain Scale: 0-10 Numeric Is Patient Pain Free? Yes Yes Yes WC - Visit Discharge Discharge Condition Stable Stable Stable Ambulatory Status Walker Walker Ambulatory, Walker Transportation Private Auto Private Auto Private Auto Medication Reconcilliation completed & No No No provided to patient/care provider Clinical Summary of Care Provided Yes Yes Yes Additional Wound Wound debrided: right medial leg Laterality: Right Type of Debridement: Excisional debridement Anesthesia Used: 4% Lidocaine Solution, 5% Lidocaine Gel and Cetacaine Depth: Down to and including healthy tissue and in the subcutaneous layer Percentage of wound debrided: 100 Instrument Used: - (Misonix ultrasonic debridement) Tissue Removed: Yellow slough, devitalized tissue Severity: Fat Layer Exposed Amount of bleeding with debridement: Mild Bleeding Controlled with: Compression and gauze Patient tolerated procedure: Patient tolerated procedure well Additional Wound Wound debrided: right lateral leg Laterality: Right Type of Debridement: Excisional debridement Anesthesia Used: 5% Lidocaine Gel and Cetacaine Depth: Down to and including healthy tissue and in the subcutaneous layer Percentage of wound debrided: 100 Instrument Used: - (Misonix ultrasonic debridement) Severity: Fat Layer Exposed Amount of bleeding with debridement: Mild Bleeding Controlled with: Pressure Patient tolerated procedure: Patient tolerated procedure well Assessment/Plan Assessment/Plan (1) Lymphedema: CODE(S): I89.0 - Lymphedema, not elsewhere classified (2) Hypertension: CODE(S): I10 - Essential (primary) hypertension QUALIFIERS: Hypertension type: primary hypertension Qualified Code(s): I10 - Essential (primary) hypertension (3) Hyperlipidemia: CODE(S): E78.5 - Hyperlipidemia, unspecified QUALIFIERS: Hyperlipidemia type: mixed hyperlipidemia Qualified Code(s): E78.2 - Mixed hyperlipidemia (4) History of DVT (deep vein thrombosis): CODE(S): Z86.718 - Personal history of other venous thrombosis and embolism (5) Venous insufficiency (chronic) (peripheral): CODE(S): I87.2 - Venous insufficiency (chronic) (peripheral) (6) Venous ulcer of left lower extremity with varicose veins: CODE(S): I83.029 - Varicose veins of left lower extremity with ulcer of unspecified site (7) Edema: CODE(S): R60.9 - Edema, unspecified QUALIFIERS: Edema type: unspecified Qualified Code(s): R60.9 - Edema, unspecified (8) 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 At home wound-care instructions: Both right LE ulcers will be dressed with Calcium alginate and Optilock super absorber and covered with Kerlix, changed daily for heavy drainage. Will continue to use Circaid compression garments and cover. Theraskin #1 was applied to the Left medial LE ulcer today and secured with skin glue and covered with wound veil and secured with steri-strips. 100% of the product was used to cover the ulcer. He will dress this ulcer with calcium alginate and Optilock supersbsorber and kerlix daily for heavy drainage. Due to his chronic lymphedema and being unable to don traditional compression stockings and the presence of venous ulcers on his LE b/l, it is medically necessary for him to have Circaid compression garments to bilateral lower legs. He is using Circaid compression to both legs. I suspect he is not very compliant with his lymphedema pumps and not getting adequate compression with tubigrips and Circaids. Due to the delayed progress in wound healing of his venous ulcers, we discussed applying for advanced wound healing product for healing his ulcer. Due to the size of his ulcer, Theraskin application approval was requested from his insurance as it is medically necessary for salvaging his limb and healing his ulcer. He has previously had treatment with Theraskin to his left lower leg with improvement in October 2023. Insurance only allowed 3 applications at that time. It is medically necessary for application of Theraskin to his right lower extremity ulcer to salvage his limb and heal his ulcer and this has been approved for 10 applications which have been completed as of today. He would benefit from application of Theraskin in decreasing the size and healing his left lower leg ulcer as well to salvage his limb and this approved for through his insurance. Theraskin #1 was applied today. He is using Circaid compression wraps. Off-loading: The patient was instructed to avoid pressure and friction on the affected areas. Reposition every 2 hours at minimum. Avoid prolonged standing and/or dangling of legs. When seated, feet should be elevated at chest level. Frequent ambulation is encouraged. Encouraged lymphedema pump use. Diet: Patient encouraged to increase protein intake while taking caution to avoid high carbohydrate and/or sugar intake. Labs/cultures/imaging: Wound culture showed Pseudomonas, Escherichia hermannii, Raoultella planticola, Vancomycin Resist. E. faecalis, Alcaligenes faecalis ssp faeca, Staphylococcus cohnii urealyti and anaerobic bacteria on 06/15/24 and he completed on Levofloxacin and Augmentin. Wound culture taken today on right lateral ulcer which showed Raoultella planticola, Staph hemolyticus, staph epidermidis and morganella morganii but no anaeroobic bacteria, Levofloxacin and doxycyline were prescribed based on culture results. Labs ordered 10/19/2024. Vitamin D was low A1C 5.4% Wound culture from 12/07/24 was positive for Providencia stuartii, Vancomycin resistant E. Faecalis, Corynebacterium striatum and completed Augmentin orally. Follow-up: Return in 2 weeks for wound care follow up and change dressings daily. Return sooner or report to the emergency room should symptoms worsen, or new symptoms arise. Note: [employer] speech recognition cook pressure software was used to create portions of this document. Sound-alike and [email or web address] words, as well as other cook pressure errors may be contained in the documentation.
== END 2025-10-09 23:59 | disposition home or self-care (01) ==
LOC: WC 11:00
PROVIDERS: PCP Family Medicine; Referring Provider Family Medicine; Visit Provider Family Medicine
DX: I83.018 Varicose veins of right lower extremity with ulcer other part of lower leg (principal); L97.812 Non-pressure chronic ulcer of other part of right lower leg with fat layer exposed; L97.822 Non-pressure chronic ulcer of other part of left lower leg with fat layer exposed; I83.028 Varicose veins of left lower extremity with ulcer other part of lower leg; I87.2 Venous insufficiency (chronic) (peripheral); I10 Essential (primary) hypertension; R60.9 Edema, unspecified; I89.0 Lymphedema, not elsewhere classified; Z86.718 Personal history of other venous thrombosis and embolism; E78.2 Mixed hyperlipidemia
CPT/HCPCS: 11042; 11045; 15271; 15272; Q4121